=== PATIENT | male | born 1965 | race Hispanic/Latino ===

== ENCOUNTER 2016-07-06 15:55 | Inpatient (IN) | payer MEDICAID, OTHER ==
[2016-07-06 16:14] VITALS: BMI 37.5
[2016-07-06] MEDS ORDERED: Morphine 4 mg/ml ISec IVP STA (16:23)
--- NOTE | 2016-07-06 16:29 | ED PDOC ---
Arrival/HPI - General Chief Complaint: Back Pain Time Seen by Provider: 07/06/16 15:56 Historian: Patient - History of Present Illness Narrative History of Present Illness (Text): 07/06/16 16:00 Atul Magana, a 51 year old male, who denies any significant past medical history , presents to the emergency department complaining of chest pain and lower back pain that has developed over the past week. 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 Patient says he felt numbness and pain radiating from the back down to the right lower extremity that began earlier yesterday. He has been constipated for 2 days. Chest pain is worse with movement. Patient mentions he was seen in [facility] yesterday and had imaging done. Patient denies any urinary incontinence, nausea, vomiting, diarrhea, fever and any other complaints at this time. Patient says he has been taking medication but it has not brought him any relief. Time/Duration: 1 week Symptom Onset: Gradual Symptom Course: Unchanged Quality: Other Activities at Onset: Rest Modifying Factors (Text): chest pain worse with movement; no relief with medication Context: Work Associated Symptoms (Text): chest pain and lower back pain Past Medical History - Provider Review Nursing Documentation Reviewed: Yes - Psychiatric Hx Substance Use: No Family/Social History - Physician Review Nursing Documentation Reviewed: Yes Family/Social History: No Known Family HX Smoking Status: Heavy Smoker > 10 Cigarettes Daily Hx Alcohol Use: Yes ("one beer daily") Frequency of alcohol use: Daily Hx Substance Use: No Allergies/Home Meds Allergies/Adverse Reactions: Allergies No Known Allergies Allergy (Verified 07/06/16 16:07) Home Medications: Home Meds Medication Instructions Recorded Confirmed No Known Home Med 07/06/16 07/06/16 Review of Systems - Physician Review All systems were reviewed & negative as marked: Yes - Review of Systems Constitutional: absent: Fevers Eyes: absent: Vision Changes Respiratory: absent: SOB Cardiovascular: Chest Pain Gastrointestinal: Constipation. absent: Diarrhea, Nausea, Vomiting Genitourinary Male: absent: Urinary Output Changes Musculoskeletal: Back Pain Neurological: absent: Headache, Dizziness, Focal Weakness, Facial Droop Endocrine: absent: Polyuria Physical Exam Vital Signs Reviewed: Yes Vital Signs Temp Pulse Resp BP Pulse Ox 07/06/16 16:39 79 169/100 H 07/06/16 16:10 97.7 F 74 16 182/100 H 99 Temperature: Afebrile Blood Pressure: Hypertensive Pulse: Regular Respiratory Rate: Normal Appearance: Positive for: Well-Appearing, Non-Toxic, Comfortable, Other (obese) Pain Distress: Moderate (back pain) Mental Status: Positive for: Alert and Oriented X 3 - Systems Exam Head: Present: Atraumatic, Normocephalic Pupils: Present: PERRL Extroacular Muscles: Present: EOMI Conjunctiva: Present: Normal Mouth: Present: Moist Mucous Membranes Neck: Present: Normal Range of Motion Respiratory/Chest: Present: Clear to Auscultation, Good Air Exchange. No: Respiratory Distress, Accessory Muscle Use Cardiovascular: Present: Regular Rate and Rhythm, Normal S1, S2. No: Murmurs Abdomen: Present: Normal Bowel Sounds, Other (obese). No: Tenderness, Distention, Peritoneal Signs Back: Present: Midline Tenderness (lumbar), Pain with Leg Raise (on the right) Upper Extremity: Present: Normal Inspection. No: Cyanosis, Edema Lower Extremity: Present: Normal Inspection. No: Edema Neurological: Present: GCS=15, CN II-XII Intact, Speech Normal Skin: Present: Warm, Dry, Normal Color. No: Rashes Psychiatric: Present: Alert, Oriented x 3, Normal Insight, Normal Concentration Medical Decision Making ED Course and Treatment: 07/06/16 16:00 Impression: A 51 year old male complaining of chest pain and lower back pain. Differential Diagnosis included but are not limited to: ACS vs. dissection vs. sciatica Plan: -- EKG -- Lumbar Spine CT -- Chest X-ray -- Labs -- Urinalysis -- Aspirin, Lopressor, Morphine, Toradol and Valium -- Reassess and disposition Progress Notes: Case discussed with Emergency department physician at [facility] , who states the patient had a Angio CT which was negative for dissection and a negative chest, after which the patient eloped. EKG: Ordered, reviewed, and independently interpreted the EKG. Rate : 69 BPM Rhythm : NSR Interpretation : MN of 107, normal axis, no ST/T changes Comparison : No previous EKG for comparison. 07/06/16 18:15 CT Lumbar Spine Without Intravenous Contrast: Dictated and Authenticated by: Kevin Mazariegos MD COMPARISON: No relevant prior studies available. FINDINGS: Vertebrae: Grade 1 retrolisthesis of L3 on L4, L4-L5, and L5-S1. No acute fracture. Discs/spinal canal/neural foramina: At L3-L4, disc bulge and facet arthropathy results in moderate canal and mild to moderate left and no right foraminal stenosis. At L4-L5, disc bulge and facet arthrosis result in mild canal and moderate bilateral foraminal stenosis. At L5-S1, disc bulge results in mild canal and moderate severe right and mild left foraminal stenosis. Soft tissues: Unremarkable. IMPRESSION: 1. At L3-L4, disc bulge and facet arthropathy results in moderate canal and mild to moderate left and no right foraminal stenosis. 2. At L4-L5, disc bulge and facet arthrosis result in mild canal and moderate bilateral foraminal stenosis. 3. At L5-S1, disc bulge results in mild canal and moderate severe right and mild left foraminal stenosis. 07/06/16 18:59 Chest X-ray: As read by me, no active disease. Patient unable to walk due to intractable back pain and symptoms due to radiculopathy - he will need to be placed in the hospital for further eval by neuro and treatment. No bowel/bladder incontinence or symptoms to suggest cord compression. Case discussed with Dr. Jones, who is aware and agrees with the plan to place the patient in telemetry observation under hospitalist services for intractable back pain and chest pain. I have discussed the results and plan with the patient, who expresses understanding. Patient given the opportunity to ask question, all questions were answered and there is agreement with the plan to be admitted to the hospital. - Lab Interpretations Lab Results: 07/06/16 16:30 07/06/16 16:30 Lab Results 07/06/16 16:30: WBC 13.4 H, RBC 4.73, Hgb 14.9, Hct 42.7, MCV 90.3, MCH 31.5, MCHC 34.9, RDW 13.3, Plt Count 223, MPV 12.0 H, Gran % 80.0 H, Lymph % (Auto) 10.6 L, Slope % (Auto) 8.9 H, Eos % (Auto) 0.4 L, Baso % (Auto) 0.1, Gran # 10.73 H, Lymph # 1.4, Slope # 1.2 H, Eos # 0.1, Baso # 0.02, PT 11.2, INR 1.04, APTT 32.1 H, Sodium 137, Potassium 4.2, Chloride 101, Carbon Dioxide 25, Anion Gap 15, BUN 18, Creatinine 0.8, Est GFR ( Amer) > 60, Est GFR (Non-Af Amer) > 60, Random Glucose 106, Calcium 9.5, Magnesium 2.2, Total Bilirubin 0.7 , AST 28, ALT 32, Alkaline Phosphatase 73, Lactate Dehydrogenase 541, Total Creatine Kinase 313 H, CK-MB (CK-2) 5.5 H, CK-MB (CK-2) % 1.8 L, Troponin I < 0.01, Total Protein 8.2, Albumin 4.0, Globulin 4.2, Albumin/Globulin Ratio 1.0 L , Lipase 36 I have reviewed the lab results: Yes - RAD Interpretation Radiology Orders: 07/06/16 16:21 CHEST TWO VIEWS (PA/LAT) [RAD] Stat 07/06/16 16:23 LUMBAR SPINE W/O CONTRAST [CT] Stat - Medication Orders Current Medication Orders: Discontinued Medications Aspirin (Aspirin Chewable) 162 mg PO STAT STA Stop: 07/06/16 16:23 Last Admin: 07/06/16 16:39 Dose: 162 MG Diazepam (Valium) 5 mg PO ONCE ONE Stop: 07/06/16 16:24 Last Admin: 07/06/16 16:39 Dose: 5 MG Behavioural Document 07/06/16 16:39 SE (Rec: 07/06/16 16:39 [id number]) Maintenance Maintenance Dose No Nonmedicinal Nonmedicinal Interventions See nurse's notes Comment muslce relaxant Behavior Behavior for Medication: Anxiety Behavior Comment muscle relaxant Ketorolac Tromethamine (Toradol) 30 mg IVP STAT STA Stop: 07/06/16 16:23 Last Admin: 07/06/16 16:40 Dose: 30 MG IVP Administration Document 07/06/16 16:40 SE (Rec: 07/06/16 16:40 [id number]) Charges for Administration # of IVP Administrations 1 Metoprolol Tartrate (Lopressor) 25 mg PO STAT STA Stop: 07/06/16 16:24 Last Admin: 07/06/16 16:39 Dose: 25 MG MAR Pulse and Blood Pressure Document 07/06/16 16:39 SE (Rec: 07/06/16 16:40 SE [id number]) Pulse Pulse Rate (60-90) 79 Blood Pressure Blood Pressure (100/60-150/90) 169/100 Morphine Sulfate (Morphine) 4 mg IVP STAT STA Stop: 07/06/16 16:24 Last Admin: 07/06/16 16:40 Dose: 4 MG MAR Pain Assessment Document 07/06/16 16:40 SE (Rec: 07/06/16 16:40 SE [id number]) Pain Reassessment Is this a pain reassessment? No Sleep Is patient sleeping during reassessment? No Presence of Pain Presence of Pain Yes IVP Administration Document 07/06/16 16:40 SE (Rec: 07/06/16 16:40 SE [id number]) Charges for Administration # of IVP Administrations 1 - Scribe Statement The provider has reviewed the documentation as recorded by the Yesica De Guzman training under Alvaro Tee All medical record entries made by the Trishaibaislinn were at my direction and personally dictated by me. I have reviewed the chart and agree that the record accurately reflects my personal performance of the history, physical exam, medical decision making, and the department course for this patient. I have also personally directed, reviewed, and agree with the discharge instructions and disposition. Disposition/Present on Arrival - Present on Arrival Any Indicators Present on Arrival: No History of DVT/PE: No History of Uncontrolled Diabetes: No Urinary Catheter: No History of Decub. Ulcer: No History Surgical Site Infection Following: None - Disposition Have Diagnosis and Disposition been Completed?: Yes Diagnosis: Chest pain, Lumbar radiculopathy Disposition: HOSPITALIZED Disposition Time: 18:45 Patient Plan: Observation Condition: FAIR
[2016-07-06 17:19] LABS: ALT/SGPT 32 U/L (7-56); AST/SGOT 28 U/L (15-59); BLOOD UREA NITROGEN 18 mg/dL (7-21); CALCIUM 9.5 mg/dL (8.4-10.5); GFR AFRICAN-AMERICAN > 60; GFR NON-AFRICAN AMERICAN > 60; LIPASE 36 U/L (23-300); MAGNESIUM 2.2 mg/dL (1.7-2.2)
[2016-07-06 17:30] LABS: TROPONIN I < 0.01 ng/mL
[2016-07-06 17:31] LABS: BASO # 0.02 K/mm3 (0.0-2.0); BASO % 0.1 % (0.0-3.0); EOS # 0.1 (0.0-0.7); EOS % 0.4 % (1.5-5.0); GRAN # 10.73 (1.4-6.5); HEMOGLOBIN 14.9 gm/dL (14.0-18.0); LYMPH # 1.4 (1.2-3.4); LYMPH % 10.6 % (22.0-35.0); MEAN CELL VOLUME 90.3 fL (80.0-105.0); MEAN CORPUSCULAR HEMOGLOBIN 31.5 pg (25.0-35.0); MEAN CORPUSCULAR HGB CONC 34.9 g/dl (31.0-37.0); MONO # 1.2 (0.1-0.6); MONO % 8.9 % (1.0-6.0); PLATELET COUNT 223 10^3/uL (120.0-450.0); RBC 4.73 10^6/uL (3.5-6.1); RED CELL DISTRIBUTION WIDTH 13.3 % (11.5-14.5); WHITE BLOOD COUNT 13.4 10^3/ul (4.5-11.0)
[2016-07-06 17:35] LABS: CK MB% 1.8 % (2.5-3.0); CK-MB 5.5 ng/mL (0.0-3.6)
[2016-07-06 17:38] LABS: INR 1.04 (0.93-1.08); PARTIAL THROMBOPLASTIN TIME 32.1 Seconds (23.7-30.8); PROTHROMBIN TIME 11.2 Seconds (9.9-11.8)
[2016-07-06 20:03] LABS: MAGNESIUM 2.2 mg/dL (1.7-2.2)
--- NOTE | 2016-07-06 20:26 | CP.PCM.HP ---
<Rolando Ferro - Last Filed: 07/06/16 21:49> History of Present Illness - History of Present Illness History of Present Illness: cc: Chest pain and low back pain HPI: Patient is a 51yo male who denies prior past medicla history that presented to [facility] c/o chest pain and low back pain that started 2 days prior. 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 He reported that he also felt some left- sided chest pain and went to [facility] for evaluation. He stated that he was only given an ibuprofen which provided minimal relief and he left the emergency room prior to a complete evaluation because he was upset with how they were evaluating him. Today, he reports worsening of his low back pain and RLE weakness. He stated that he was unable to ambulate and called EMS to be brought to the hospital. He stated that the chest pain was non-radiating and worse with movement. He denied bowel/bladder incontinence, saddle anesthesia , headache, fever, chills, dysuria, frequency, urgency. In the ED, patient's vitals were as follows: temperature 97.7F, heart rate 74bpm, blood pressure 182/ 100, RR 16, O2sat 99% on room air. His labs were notable for a WBC count of 13.4 with left shift, total CK of 313, troponin negative x1. An EKG revealed normal sinus rhythm with no acute ST-T wave changes. The ED physician, Dr. Tyson contacted [facility] and discussed this patient's case with an ED physician there who stated the patient had a CT angio which was negative for dissection and a negative chest, after which the patient eloped. The patient was subsequently admitted for further evaluation of his chest pain and low back pain. 12 point ROS as per HPI above otherwise negative PMHx: Denies PSHx: Denies Allergies: NKDA Family Hx: Dad: denies history of illness; Mother: DM2; Brother: DM2 Social Hx: smokes 1ppd for past 15yrs, 2-3 beers daily; denies illicit drugs Present on Admission - Present on Admission Any Indicators Present on Admission: No Past Patient History - Past Social History Smoking Status: Heavy Smoker > 10 Cigarettes Daily - PSYCHIATRIC Hx Substance Use: No - SURGICAL HISTORY Hx Surgeries: No Meds Allergies/Adverse Reactions: Allergies Allergy/AdvReac Type Severity Reaction Status Date / Time No Known Allergies Allergy Verified 07/06/16 16:07 Physical Exam - Constitutional Appears: Well, Non-toxic, No Acute Distress - Head Exam Head Exam: ATRAUMATIC, NORMAL INSPECTION, NORMOCEPHALIC - Eye Exam Eye Exam: EOMI, PERRL. absent: Conjunctival injection, Scleral icterus - ENT Exam ENT Exam: Mucous Membranes Moist - Neck Exam Neck exam: Positive for: Normal Inspection. Negative for: Lymphadenopathy, Tenderness, Thyromegaly - Respiratory Exam Respiratory Exam: Clear to Auscultation Bilateral. absent: Rales, Rhonchi, Wheezes - Cardiovascular Exam Cardiovascular Exam: RRR, +S1, +S2. absent: Tachycardia, Diastolic murmur, Gallop, JVD, Rubs, Systolic Murmur - GI/Abdominal Exam GI & Abdominal Exam: Normal Bowel Sounds, Soft. absent: Distended, Firm, Guarding, Rebound, Rigid, Tenderness - Extremities Exam Extremities exam: Positive for: normal inspection, pedal pulses present. Negative for: calf tenderness, pedal edema, tenderness Additional comments: sensory intact in bilateral upper and lower extremities 2/4 femoral, posterior tibialis and dorsalis pedis pulses in bilateral lower extremities motor strength 3/5 in LLE and 2/5 in RLE 5/5 motor strength in bilateral upper extremities negative babinski bilaterally negative justen's sign no calf tenderness no erythema visible on bilateral lower extremities - Back Exam Back exam: NORMAL INSPECTION - Neurological Exam Neurological exam: Alert, CN II-XII Intact, Oriented x3 - Psychiatric Exam Psychiatric exam: Anxious - Skin Skin Exam: Dry, Intact, Normal Color, Warm Results - Vital Signs Recent Vital Signs: Last Vital Signs Temp 97.8 F 07/06/16 20:11 Pulse 67 07/06/16 20:11 Resp 18 07/06/16 20:11 BP 157/95 H 07/06/16 20:11 Pulse Ox 96 07/06/16 20:11 - Labs Result Diagrams: 07/06/16 16:30 07/06/16 16:30 Labs: Laboratory Results - last 24 hr 07/06/16 16:30 WBC 13.4 H RBC 4.73 Hgb 14.9 Hct 42.7 MCV 90.3 MCH 31.5 MCHC 34.9 RDW 13.3 Plt Count 223 MPV 12.0 H Gran % 80.0 H Lymph % (Auto) 10.6 L Glades % (Auto) 8.9 H Eos % (Auto) 0.4 L Baso % (Auto) 0.1 Gran # 10.73 H Lymph # 1.4 Glades # 1.2 H Eos # 0.1 Baso # 0.02 PT 11.2 INR 1.04 APTT 32.1 H Sodium 137 Potassium 4.2 Chloride 101 Carbon Dioxide 25 Anion Gap 15 BUN 18 Creatinine 0.8 Est GFR ( Amer) > 60 Est GFR (Non-Af Amer) > 60 Random Glucose 106 Calcium 9.5 Magnesium 2.2 Total Bilirubin 0.7 AST 28 ALT 32 Alkaline Phosphatase 73 Lactate Dehydrogenase 541 Total Creatine Kinase 313 H CK-MB (CK-2) 5.5 H CK-MB (CK-2) % 1.8 L Troponin I < 0.01 Total Protein 8.2 Albumin 4.0 Globulin 4.2 Albumin/Globulin Ratio 1.0 L Lipase 36 Assessment & Plan - Assessment and Plan (Free Text) Assessment: 51yo male with no known past medical history presents c/o chest pain and low back pain that radiates to the RLE associated with weakness and numbness Plan: 1. RLE DVT -Bilateral Venous duplex revealed RLE DVT -ED physician reports CT angio from [facility] was negative for dissection/chest abnormalities -Patient started on lovenox 140mg SC BID and warfarin 5mg PO HS for therapeutic treatment of DVT -Hypercoagulability workup pending - antithrombin III, Protein C, Protein S, Factor V leidin, lupus anticoagulant -Hematology consulted - Dr. Warren 2. RLE weakness/low back pain -Femoral, posterior tibialis and dorsalis pedis pulses are 2/4 bilaterally -CT Lumbar spine without IV contrast revealed as follows: 1. At L3-L4, disc bulge and facet arthropathy results in moderate canal and mild to moderate left and no right foraminal stenosis. 2. At L4-L5, disc bulge and facet arthrosis result in mild canal and moderate bilateral foraminal stenosis. 3. At L5-S1, disc bulge results in mild canal and moderate severe right and mild left foraminal stenosis. -Neurology consulted - Dr. Koch 3. Chest pain r/o ACS -Troponin negative x1, will trend -CXR revealed no active disease -EKG revealed normal sinus rhythm with no acute ST-T wave changes -Lipid panel, TSH, A1C pending -Urine drug screen pending -Cardiology consulted - Dr. Sumner 4. GI/DVT prophylaxis -Protonix/Lovenox Patient seen and case discussed with attending, Dr. Jones - Date & Time Date: 07/06/16 Time: 20:40 <Naun Jones - Last Filed: 07/06/16 22:52> Results - Vital Signs Recent Vital Signs: Last Vital Signs Temp 97.8 F 07/06/16 21:05 Pulse 67 07/06/16 21:05 Resp 20 07/06/16 21:05 BP 157/95 H 07/06/16 21:05 Pulse Ox 96 07/06/16 20:11 - Labs Result Diagrams: 07/06/16 16:30 07/06/16 16:30 Labs: Laboratory Results - last 24 hr 07/06/16 19:40 Phosphorus 3.0 Magnesium 2.2 Triglycerides 104 Cholesterol 174 LDL Cholesterol Direct 101 HDL Cholesterol 37 TSH 3rd Generation 0.79 Attending/Attestation - Attestation I have personally seen and examined this patient.: Yes I have fully participated in the care of the patient.: Yes I have reviewed all pertinent clinical information: Yes Notes (Text): 07/06/16 22:51 Patient was seen when he was in room # 266-01. Agree with history,physical examination , assessment and plan.
[2016-07-06] MEDS ORDERED: Enoxaparin 150 mg Syringe SC STA (20:45)
[2016-07-06] MEDS ORDERED: cefTRIAXone 1 gm 100 ML IVPB STA (22:56)
[2016-07-06] MEDS ORDERED: Morphine 2 mg/ml ISec IVP PRN (22:58)
[2016-07-07] MEDS ORDERED: Enoxaparin 150 mg Syringe SC SCH ×2 (05:00→10:00)
[2016-07-07 07:13] LABS: BASO # 0.01 K/mm3 (0.0-2.0); BASO % 0.1 % (0.0-3.0); EOS % 0.2 % (1.5-5.0); GRAN # 10.54 (1.4-6.5); HEMOGLOBIN 14.2 gm/dL (14.0-18.0); INR 0.98 (0.93-1.08); LYMPH % 8.2 % (22.0-35.0); MEAN CELL VOLUME 90.3 fL (80.0-105.0); MEAN CORPUSCULAR HEMOGLOBIN 31.4 pg (25.0-35.0); MEAN CORPUSCULAR HGB CONC 34.8 g/dl (31.0-37.0); MEAN PLATELET VOLUME 11.8 fl (7.0-11.0); MONO # 0.8 (0.1-0.6); MONO % 6.5 % (1.0-6.0); PARTIAL THROMBOPLASTIN TIME 33.4 Seconds (23.7-30.8); PLATELET COUNT 249 10^3/uL (120.0-450.0); PROTHROMBIN TIME 10.6 Seconds (9.9-11.8); RBC 4.52 10^6/uL (3.5-6.1); RED CELL DISTRIBUTION WIDTH 13.5 % (11.5-14.5); WHITE BLOOD COUNT 12.4 10^3/ul (4.5-11.0)
[2016-07-07 07:26] LABS: ALB/GLOB RATIO 0.9 (1.1-1.8); ALBUMIN 4.1 g/dL (3.0-4.8); ALT/SGPT 34 U/L (7-56); AST/SGOT 26 U/L (15-59); BLOOD UREA NITROGEN 24 mg/dL (7-21); CALCIUM 9.6 mg/dL (8.4-10.5); GFR AFRICAN-AMERICAN > 60; GFR NON-AFRICAN AMERICAN > 60
[2016-07-07 07:35] LABS: TROPONIN I 0.01 ng/mL
--- NOTE | 2016-07-07 07:55 | RAD ---
HISTORY: Chest pain COMPARISON: No prior. TECHNIQUE: Chest PA and lateral FINDINGS: LUNGS: The lungs are well inflated and clear. PLEURA: No significant pleural effusion identified. No pneumothorax apparent. CARDIOVASCULAR: Normal. OSSEOUS STRUCTURES: No significant abnormalities. VISUALIZED UPPER ABDOMEN: Normal. OTHER FINDINGS: None. IMPRESSION: No active pulmonary disease.
--- NOTE | 2016-07-07 09:47 | US ---
HISTORY: Leg pain and swelling. Evaluate for DVT PHYSICIAN(S): Pradeep Monsalve MD. TECHNIQUE: Duplex sonography and color-flow Doppler with graded compression were used to evaluate the deep venous systems of both lower extremities. FINDINGS: There is hypoechoic thrombus in the right common femoral vein and proximal right femoral vein. The mid to distal right femoral vein and right popliteal vein are patent and compressible. There is no sonographic evidence of deep venous thrombosis the visualized segments of left lower extremity IMPRESSION: Acute, hypoechoic thrombus in the right common femoral vein and proximal right femoral vein.
[2016-07-07] MEDS ORDERED: Enoxaparin 30 mg Syringe SC SCH (10:00)
[2016-07-07] MEDS ORDERED: Barium Sulfate Susp 2.1% w/v, 2.0% w/w 450 mL Bottle PO ONE (10:58)
--- NOTE | 2016-07-07 11:26 | MRI ---
PROCEDURE: MR THORACIC SPINE WITHOUT CONTRAST HISTORY: suspected cauda equina COMPARISON: None available. TECHNIQUE: Multiecho multiplanar sequences were performed through the thoracic spine without the use of intravenous contrast. FINDINGS: ALIGNMENT: Normal thoracic spinal alignment. Normal thoracic kyphosis. VERTEBRA: Vertebral body height are preserved. MARROW: There is abnormal signal intensity within the T3 and T4 vertebral bodies suspicious for either metastatic disease or infection. There is no evidence of disc space infection. PARASPINAL SOFT TISSUES: There is a fluid collection in the ventral epidural space extending from T1 through T5. This measures 5 mm anterior to posterior by 12 mm with by 79 mm in length. This compresses the cord and obliterates the subarachnoid space. The study was reviewed with Dr. Mora at 11:15 a.m. CORD: Compression of the spinal cord from T1 through T5. There is also some cord edema extending to the T8 level. DISCS: No disc herniation, spinal canal stenosis, or neuroforaminal narrowing. OTHER FINDINGS: None. IMPRESSION: Fluid collection in the ventral epidural space from T1 through T5 with associated cord compression and obliteration of the subarachnoid space. There is abnormal signal intensity in the T3 and T4 vertebral bodies which may represent osteomyelitis versus metastatic disease.
--- NOTE | 2016-07-07 11:35 | CON ---
DATE: 07/07/2016 REASON FOR CONSULTATION: Right lower extremity DVT. Rule out hypercoagulable state. HISTORY OF PRESENT ILLNESS: The patient is a 51-year-old male with no significant past medical histo ry who presented to the Emergency Room with complaints of chest and lower back pain that started 2 da ys prior to admission. He also had an evaluation for the above at [facility] and no pathology was found. He did sign out against medical advice though at that time. A chest CT done at that time did not reveal a PE or aortic dissection. He is currently also being worked up for this l ower back pain. He also states that he has lower extremity weakness and incontinence. Denies any pr ior history of malignancy has not had any workup. No GI workup has been done in the past. Denies an y melena, any hematochezia. No weight changes. No history of prostate cancer. No history of prosta te problems in the past. No recent weight changes. No fevers. No night sweats. PAST MEDICAL HISTORY: As above. PAST SURGICAL HISTORY: None known. MEDICATIONS: Does not take any medications at home. ALLERGIES: No known drug allergies. FAMILY HISTORY: Significant for mother and brother having diabetes. SOCIAL HISTORY: Positive for smoking 1 pack per day for over 20 years, 2-3 beers daily. Denies any illicit drug use. REVIEW OF SYSTEMS: As per the HPI. PHYSICAL EXAMINATION: VITAL SIGNS: Reveal a temperature of 97.2, pulse of 75, respiratory rate of 18, and blood pressure o f 145/89. GENERAL: The patient is a middle-aged male lying in bed, in no acute distress. HEAD AND NECK: Normocephalic, atraumatic. EYES: Pupils equal, round, reactive to light and accommodation. Extraocular muscles are intact. Th ere is pallor. No icterus is noted. NECK: Supple with no adenopathy, no JVD, no thyromegaly. LUNGS: Clear to auscultation bilaterally with no rales or rhonchi. CARDIOVASCULAR: S1, S2 is heard. ABDOMEN: Positive bowel sounds. Soft, nontender, nondistended. No organomegaly is palpated. EXTREMITIES: There is no edema, clubbing, or cyanosis. LABORATORY DATA: Reveal a white count of 12.4, hemoglobin 14.2, hematocrit 40.8, MCV of 90.3 and a p latelet count of 249. Electrolytes are within normal limits except for BUN and creatinine of 24 and 1.0. His LFTs are within normal limits as is the alk phos. Total protein is mildly elevated at 8.7 with albumin/globulin ratio of 0.9. ASSESSMENT AND PLAN: Middle-aged male with no significant past medical history with an extensive mario p venous thrombosis of the right lower extremity. Must rule out underlying malignancy. The patient will need a complete gastrointestinal workup. Check PSA, CEA. CT scans of the chest, abdomen and pe lvis should also be ordered. Agree with hypercoagulable workup. Continue anticoagulation at full do ses. He will need anticoagulation for at least 6 months, even if no underlying pathology is found. Will discuss regarding further workup. Thank you for the consult. We will follow. Marilynn Wong MD cc: [id number] TT: 07/07/2016 11:34:52 Confirmation # [id number] Dictation # [id number] jose
[2016-07-07] MEDS ORDERED: Propofol 10 mg/ml Inj (20 ML) ONE ×2 (11:45→12:03)
[2016-07-07] MEDS ORDERED: Midazolam 2 MG/2 ML VIAL ONE (11:45)
[2016-07-07] MEDS ORDERED: Rocuronium 10 mg/ml (5 ml) ONE ×2 (11:46→13:14)
[2016-07-07] MEDS ORDERED: Succinylcholine 200 mg/10 ml Inj IV ONE (11:46)
[2016-07-07] MEDS ORDERED: White Petrolatum Ophth Oint (Puralube) ONE (11:52)
[2016-07-07] MEDS ORDERED: Piperacillin/Tazobact 3.375 gm 100 ML IVPB SCH (12:00)
[2016-07-07] MEDS ORDERED: Phenylephrine 10 mg/ml Inj ONE (12:04)
[2016-07-07] MEDS ORDERED: Bupivacaine 0.5% Inj(30mL) ONE (12:05)
[2016-07-07] MEDS ORDERED: Absorbable Gelatin Sponge Size 100 ONE ×2 (12:05→14:43)
[2016-07-07] MEDS ORDERED: Lidocaine 1%/Epinephrine 1:100000 30 ml vial ONE (12:05)
[2016-07-07] MEDS ORDERED: Thrombin Topical 20,000 Intl Units Spray Kit TOP ONE (12:06)
--- NOTE | 2016-07-07 12:11 | MRI ---
PROCEDURE: MR LUMBAR SPINE WITHOUT CONTRAST HISTORY: suspected cauda equina COMPARISON: None available. TECHNIQUE: Multiecho multiplanar sequences were performed through the lumbar spine without the use of intravenous contrast. FINDINGS: Normal lumbar lordosis. Vertebral body heights are preserved. Marrow signal unremarkable. Conus medullaris unremarkable at the level of L1 Paraspinal soft tissues are unremarkable. T12-L1: No disc herniation, spinal canal stenosis or neural foraminal narrowing. L1-2: No disc herniation, spinal canal stenosis or neural foraminal narrowing. L2-3: No disc herniation, spinal canal stenosis or neural foraminal narrowing. L3-4: No disc herniation, spinal canal stenosis or neural foraminal narrowing. L4-5: No disc herniation, spinal canal stenosis or neural foraminal narrowing. L5-S1: No disc herniation, spinal canal stenosis or neural foraminal narrowing. Mild disc bulge OTHER FINDINGS: Please see MRI of thoracic spine IMPRESSION: No evidence of compression of the cauda equina.
--- NOTE | 2016-07-07 12:14 | CT ---
PROCEDURE: CT Lumbar Spine without contrast HISTORY: low back pain radiating to the R leg COMPARISON: None. TECHNIQUE: Axial computed tomography images were obtained of the lumbar spine without the use of intravenous contrast. Coronal and sagittal reformatted images were created and reviewed. Radiation dose: Total exam DLP = mGy-cm. This CT exam was performed using one or more of the following dose reduction techniques: Automated exposure control, adjustment of the mA and/or kV according to patient size, and/or use of iterative reconstruction technique. FINDINGS: VERTEBRAE: Unremarkable. No fracture. Normal alignment. DISCS/SPINAL CANAL/NEURAL FORAMINA: L1-2: Unremarkable. L2-3: Unremarkable. L3-4: Mild disc bulge L4-5: Mild disc bulge L5-S1: Mild disc bulge PARASPINAL SOFT TISSUES: Unremarkable. OTHER FINDINGS: The report concurs with the preliminary [facility] report IMPRESSION: Mild disc degeneration lower lumbar spine. No compressive lesions
--- NOTE | 2016-07-07 12:45 | CP.PCM.CON ---
<Uzma Abbott - Last Filed: 07/07/16 18:46> History of Present Illness - History of Present Illness History of Present Illness: PGY-[address] Audelia Marc ICU consult: Abscess in epidural space 51 year old male with self claimed of no PMH c/o chest pain and low back pain that started 2 days prior to admission on 07/06/16. He was started with RLE weakness 1 week ago. 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 He also felt L chest pain, worse with movement, and went to [facility] ED for evaluation, given ibuprofen, provided minimal relief, eloped. On 07/06, pt has worsened low back pain, RLE weakness, is able to ambulate with difficulty. The back pain was non-radiating and worse with movement. Denied bowel/bladder incontinence, saddle anesthesia on arrival. He was brought to [facility] via EMS. Upon ED arrival, T 97.7, HR 74, 182/100, RR 16, O2sat 99 RA. WBC 13.4, total CK 313, troponin negative x1. Pt is able to ambulate with difficulty. - EKG = NSR no acute ST-T wave changes - CT of lumbar = L3-S1, disc bulge, facet arthropathy resulting in canal stenosis at all levels and foraminal stenosis at some levels. - LE doppler showed = R LE DVT, acute, R common femoral vein and proximal R femoral vein - CT angio at [facility] = no PE, no aortic dissection. He was admitted for chest pain, low back pain, and R LE DVT. trops are negative x 3. He is on Zosyn q6, Vanco q12, and Lovenox therapeutic dose while bridging coumadin. Start this morning, Mon, 07/07, pt could not feel his lower extremities, unable to move both legs, and have new onset urinary incontinence. - Lumbar MRI = No cauda equina - Thoracic MRI = T3, T4 vertebral bodies suspicious for metastatic disease vs osteomyelitis. Fluid collection in ventral epidural space T1 to T5 with cord compression and obliteration of subacrachnoid space This afternoon, he underwent Emergent laminectomy, T2-T4, with Dr Mora. Pus was found in spinal canal. Purulent fluid was sent for gram stain and culture. ROS (+) urinary incontience, (+) decrease sensation and motor function b/l LE. Denies recent trauma or travels. Denies skin infections. Denies REINA, Fever/chills, CP, SOB, abd pain, N/V/D/C. (+) weak streams when urinate. Denies dysuria, hematuria. PMH Denies PSH Denies FH Denies SH 1 Beer daily, Heavy smoker denies IV drug use. But sister states that he "had used drugs in the past" but does not know when UDS (+) cocaine Allergy NKDA Med No home med PMD No Review of Systems - Constitutional Constitutional: As Per HPI Past Patient History - Past Social History Smoking Status: Heavy Smoker > 10 Cigarettes Daily Alcohol: < 2 Drinks/Day Drugs: Denies - CARDIAC Hx Cardiac Disorders: No - PULMONARY Hx Respiratory Disorders: No - MUSCULOSKELETAL/RHEUMATOLOGICAL Hx Falls: No - PSYCHIATRIC Hx Substance Use: No - SURGICAL HISTORY Hx Surgeries: No Meds Allergies/Adverse Reactions: Allergies Allergy/AdvReac Type Severity Reaction Status Date / Time No Known Allergies Allergy Verified 07/06/16 16:07 - Medications Medications: Current Medications Enoxaparin Sodium (Lovenox) 140 mg SC Q12H DONAL PRN Reason: Protocol Piperacillin Sod/Tazobactam Sod (Zosyn 3.375 In Ns 100ml) 100 mls @ 200 mls/hr IVPB Q6 DONAL PRN Reason: Protocol Stop: 07/07/16 18:29 Vancomycin HCl (Vancomycin 1gm) 250 mls @ 167 mls/hr IVPB Q12H DONAL PRN Reason: Protocol Morphine Sulfate (Morphine) 1 mg IVP Q6H PRN PRN Reason: Pain, severe (8-10) Last Admin: 07/06/16 23:24 Dose: 1 mg Pantoprazole Sodium (Protonix Inj) 40 mg IVP DAILY DONAL Warfarin Sodium (Coumadin) 5 mg PO HS DONAL PRN Reason: Protocol Last Admin: 07/06/16 23:24 Dose: 5 mg Physical Exam - Constitutional Appears: No Acute Distress - Head Exam Head Exam: ATRAUMATIC, NORMOCEPHALIC - Eye Exam Eye Exam: EOMI, Normal appearance, PERRL - ENT Exam ENT Exam: Mucous Membranes Moist - Neck Exam Neck exam: Negative for: Meningismus - Respiratory Exam Respiratory Exam: Clear to Auscultation Bilateral, NORMAL BREATHING PATTERN. absent: Rales, Rhonchi, Wheezes - Cardiovascular Exam Cardiovascular Exam: REGULAR RHYTHM, +S1, +S2. absent: Systolic Murmur - GI/Abdominal Exam GI & Abdominal Exam: Normal Bowel Sounds, Soft. absent: Distended, Rigid - Extremities Exam Extremities exam: Positive for: normal capillary refill, pedal pulses present. Negative for: pedal edema - Back Exam Additional comments: dressing T2-T4 d/c/i with ROSELYN drain with sanguinous fluid - Neurological Exam Neurological exam: Alert, Motor Sensory Deficit, Oriented x3 Additional comments: pain sensation/touch and proprioception - intact T10 and above; lack of total sensation - T10 and below to S2-3 Motor - hip flexors/extensors, leg flexors/extensors, foot dorsiflex, 0/5 - Psychiatric Exam Psychiatric exam: Normal Affect, Normal Mood - Skin Skin Exam: Dry, Warm Additional comments: old bruise on gluteal area Results - Vital Signs Recent Vital Signs: Last Vital Signs Temp 97.2 F L 07/07/16 00:01 Pulse 75 07/07/16 10:00 Resp 18 07/07/16 00:01 BP 145/89 07/07/16 00:01 Pulse Ox 97 07/07/16 00:01 - Labs Result Diagrams: 07/07/16 06:45 07/07/16 06:45 Labs: Laboratory Results - last 24 hr 07/06/16 07/06/16 07/07/16 19:40 23:15 06:45 WBC 12.4 H RBC 4.52 Hgb 14.2 Hct 40.8 L MCV 90.3 MCH 31.4 MCHC 34.8 RDW 13.5 Plt Count 249 MPV 11.8 H Gran % 85.0 H Lymph % (Auto) 8.2 L Dickens % (Auto) 6.5 H Eos % (Auto) 0.2 L Baso % (Auto) 0.1 Gran # 10.54 H Lymph # 1.0 L Dickens # 0.8 H Eos # 0.0 Baso # 0.01 PT 10.6 INR 0.98 APTT 33.4 H Sodium 136 Potassium 4.5 Chloride 98 Carbon Dioxide 26 Anion Gap 17 BUN 24 H Creatinine 1.0 Est GFR ( Amer) > 60 Est GFR (Non-Af Amer) > 60 Random Glucose 92 Hemoglobin A1c 6.3 Calcium 9.6 Phosphorus 3.0 Magnesium 2.2 Total Bilirubin 0.7 AST 26 ALT 34 Alkaline Phosphatase 72 Lactate Dehydrogenase Troponin I < 0.01 0.01 Total Protein 8.7 H Albumin 4.1 Globulin 4.6 Albumin/Globulin Ratio 0.9 L Triglycerides 104 Cholesterol 174 LDL Cholesterol Direct 101 HDL Cholesterol 37 Carcinoembryonic Ag Prostate Specific Ag TSH 3rd Generation 0.79 07/07/16 07/07/16 08:00 09:00 WBC RBC Hgb Hct MCV MCH MCHC RDW Plt Count MPV Gran % Lymph % (Auto) Dickens % (Auto) Eos % (Auto) Baso % (Auto) Gran # Lymph # Dickens # Eos # Baso # PT INR APTT Sodium Potassium Chloride Carbon Dioxide Anion Gap BUN Creatinine Est GFR ( Amer) Est GFR (Non-Af Amer) Random Glucose Hemoglobin A1c Calcium Phosphorus Magnesium Total Bilirubin AST ALT Alkaline Phosphatase Lactate Dehydrogenase 497 Troponin I Total Protein Albumin Globulin Albumin/Globulin Ratio Triglycerides Cholesterol LDL Cholesterol Direct HDL Cholesterol Carcinoembryonic Ag 1.9 Prostate Specific Ag 1.3 TSH 3rd Generation Assessment & Plan - Assessment and Plan (Free Text) Plan: 51 year old male, active smoker 1/2ppd x 15 years, UDS (+) cocaine, self claimed of no PMH, c/o chest pain and low back pain that started 2 days prior to admission on 07/06/16. He was started with RLE weakness 1 week ago. He was admitted for chest pain, low back pain, and R LE DVT. trops are negative x 3. He is on Zosyn q6, Vanco q12, and Lovenox therapeutic dose while bridging coumadin. Start this morning, Mon, 07/07, pt could not feel his lower extremities , unable to move both legs, and have new onset urinary incontinence. Lumbar MRI showed No cauda equina. Thoracic MRI showed T3, T4 vertebral bodies suspicious for metastatic disease vs osteomyelitis. Fluid collection in ventral epidural space T1 to T5 with cord compression and obliteration of subacrachnoid spaceThis afternoon, he underwent Emergent laminectomy, T2-T4, with Dr Mora. Pus was found in spinal canal. Purulent fluid was sent for gram stain and culture. It is likely from cord compression from anterior aspect of epidural region. He was found (+) cocaine and + old bruise on gluteal b/l. CK was elevated at 313 Neuro - s/p emergent decompression laminectomy, T2-T4 - neurocheck q1 - Watch epidural bleeding from heparin drip - Neurology and neurosurgery on board - morphine PRN, oxycodone PRN Cardio - Maintained normal BP - hydralazine PRN Pulm - bipap HS 10//35 titrate to above 95% GI - Clear liquid diet Nephro - CK 313 - D5/NS @ 100 Endo - maintain euglycemic Heme - R DVT - heparin drip based ht and age (ideal body wt) - hypercoagulable workup - pending Antithrombin III activity, factor V mutation , Lupus anticoags, protein C/S activity Infectious - epidural abscess - pus drained from spinal canal - watch meningitis - Echocardiogram to r/o endocarditis - CT chest/Abd/Pelvis with PO and IV contrast to r/o cancer, paraneoplastic - continue meropenem, vanco - Pending HIV, Hepatitis panel Prophylaxis - Heparin drip - Protonix S/R/D/w Dr. Audelia Marc - Date & Time Date: 07/07/16 Time: 18:15 <Cecy Marc MD - Last Filed: 07/07/16 18:56> Meds - Medications Medications: Current Medications Hydralazine HCl (Apresoline) 10 mg IVP Q6 PRN PRN Reason: FOR SBP>170 & Diastolic>100 Vancomycin HCl (Vancomycin 1gm) 250 mls @ 167 mls/hr IVPB Q12H DONAL PRN Reason: Protocol Last Admin: 07/07/16 18:48 Dose: 167 mls/hr Meropenem 1g/NS 100mL IVPB (Meropenem 1g/Ns 100ml Ivpb) 100 mls @ 100 mls/hr IVPB Q8 DONAL PRN Reason: Protocol Stop: 07/21/16 14:01 Last Admin: 07/07/16 18:47 Dose: 100 mls/hr Dextrose/Sodium Chloride (Dextrose 5%/0.9% Ns 1000 Ml) 1,000 mls @ 100 mls/hr IV .Q10H [facility] Last Admin: 07/07/16 18:45 Dose: 100 mls/hr Heparin Sodium/Sodium Chloride (Heparin 23048 Units/250ml 1/2 Normal Saline) 250 mls @ 19.006 mls/hr IV .[id number] PRN; Protocol; 14.35 UNITS/KG/HR PRN Reason: ADJUST RATE PER PROTOCOL Last Admin: 07/07/16 18:44 Dose: 19.006 mls/hr Morphine Sulfate (Morphine) 1 mg IVP Q4H PRN PRN Reason: Pain, severe (8-10) Oxycodone/Acetaminophen (Percocet 5/325 Mg Tab) 1 tab PO Q4 PRN PRN Reason: Pain, Mild (1-3) Stop: 07/10/16 15:56 Pantoprazole Sodium (Protonix Inj) 40 mg IVP DAILY DONAL Last Admin: 07/07/16 18:49 Dose: 40 mg Results - Vital Signs Recent Vital Signs: Last Vital Signs Temp 97.2 F L 07/07/16 16:28 Pulse 79 07/07/16 16:28 Resp 15 07/07/16 16:28 BP 145/79 07/07/16 16:28 Pulse Ox 97 07/07/16 16:28 - Labs Result Diagrams: 07/07/16 06:45 07/07/16 06:45 Labs: Laboratory Results - last 24 hr 07/07/16 17:15 Urine Color Yellow Urine Appearance Clear Urine pH 5.5 Ur Specific [place] >= 1.030 Urine Protein 30 H Urine Glucose (UA) Negative Urine Ketones Negative Urine Blood Large H Urine Nitrate Negative Urine Bilirubin Small H Urine Urobilinogen 0.2 Ur Leukocyte Esterase Negative Urine RBC 2 - 5 Urine WBC 2 - 5 Ur Epithelial Cells 0 - 2 Urine Bacteria Small Coarse Granular Casts Trace H Urine Opiates Screen Positive H Urine Methadone Screen Negative Ur Barbiturates Screen Negative Ur Phencyclidine Scrn Negative Ur Amphetamines Screen Negative U Benzodiazepines Scrn Positive H U Oth Cocaine Metabols Positive H U Cannabinoids Screen Negative Attending/Attestation - Attestation I have personally seen and examined this patient.: Yes I have fully participated in the care of the patient.: Yes I have reviewed all pertinent clinical information: Yes Notes (Text): 07/07/16 18:50 51 y/o M who presented to [place] with subacute Cord compression of the mid thoracic spine. MRI revealed mid thoracic cord compression from external mass and epidural space collection. Emergently was given Steroids on the medical floor adn NSG was consulted for urgent Laminectomy. I saw the patient post op from Laminectomy . AAo x 3. Does not admit to any medical history of falls, injury, IV drug use or recent infections. 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 No recent travel or times of stasis. Pt had a MRI which showed questionable mass in the posterior mediastinum that is concerning . Does have 30pk year smoking hx and is high risk. Would get Ct chest, abd and pelvis tonight Neurochecks q 1hr Continue to follow blood, urine and wound cx. Continue broad spectrum abx with Meropenum or Cefepime and Vancomycin. Monitor ROSELYN drainage tonight.D/W NSG Found to have new VTE DVT R LEG Unclear cause but maybe due to some paraneoplastic reason. Hypercoaguable work up pending. Heparin drip on hold awaiting to start, cleared by NSG team for acute DVT. Monitor ROSELYN drainage. 2D Echo pending as well. cc time 72 min
[2016-07-07] MEDS ORDERED: Desflurane Inhalation Anesthetic Liq (240 ml) ONE (12:56)
--- NOTE | 2016-07-07 13:02 | CP.PCM.PN ---
<Keri Guzman - Last Filed: 07/07/16 16:38> Subjective - Date & Time of Evaluation Date of Evaluation: 07/07/16 Time of Evaluation: 12:59 - Subjective Subjective: HOSPITALIST PROGRESS NOTE Pt is seen and examined at bedside. Pt states that this morning, he could not feel his lower extremities and is unable to move both his legs. Patient also has urinary incontinence. When pt presented to ED, pt was able to ambulate with slight difficulty. He states that his LE weakness began about 1 week ago. He denies having any recent trauma or recent travels. Patient denies having any CP , SOB, abd pain, N/V/D/C. Objective - Vital Signs/Intake and Output Vital Signs (last 24 hours): Temp Pulse Resp BP Pulse Ox 97.2 F L 88 17 168/78 H 97 07/07/16 12:10 07/07/16 12:10 07/07/16 12:10 07/07/16 12:10 07/07/16 12:10 Intake and Output: 07/07/16 07/07/16 06:59 18:59 Intake Total 360 Output Total 0 Balance 360 - Medications Medications: Current Medications Enoxaparin Sodium (Lovenox) 140 mg SC Q12H DONAL PRN Reason: Protocol Piperacillin Sod/Tazobactam Sod (Zosyn 3.375 In Ns 100ml) 100 mls @ 200 mls/hr IVPB Q6 DONAL PRN Reason: Protocol Stop: 07/07/16 18:29 Vancomycin HCl (Vancomycin 1gm) 250 mls @ 167 mls/hr IVPB Q12H DONAL PRN Reason: Protocol Morphine Sulfate (Morphine) 1 mg IVP Q6H PRN PRN Reason: Pain, severe (8-10) Last Admin: 07/06/16 23:24 Dose: 1 mg Pantoprazole Sodium (Protonix Inj) 40 mg IVP DAILY DONAL Warfarin Sodium (Coumadin) 5 mg PO HS DONAL PRN Reason: Protocol Last Admin: 07/06/16 23:24 Dose: 5 mg - Labs Labs: 07/07/16 06:45 07/07/16 06:45 PT 10.6 Seconds (9.9-11.8) 07/07/16 06:45 INR 0.98 (0.93-1.08) 07/07/16 06:45 APTT 33.4 Seconds (23.7-30.8) H 07/07/16 06:45 - Constitutional Appears: In Acute Distress (unable to move his LE B/L) - Head Exam Head Exam: ATRAUMATIC, NORMAL INSPECTION - Eye Exam Eye Exam: EOMI Pupil Exam: PERRL - ENT Exam ENT Exam: Mucous Membranes Moist - Respiratory Exam Respiratory Exam: Clear to Ausculation Bilateral. absent: Accessory Muscle Use , Rhonchi, Wheezes - Cardiovascular Exam Cardiovascular Exam: REGULAR RHYTHM, +S1, +S2 - GI/Abdominal Exam GI & Abdominal Exam: Soft, Normal Bowel Sounds. absent: Distended, Firm, Guarding, Rigid, Tenderness - Extremities Exam Extremities Exam: absent: Calf Tenderness, Pedal Edema - Neurological Exam Neurological Exam: Alert, Awake, CN II-XII Intact, Motor Sensory Deficit (in LE B/L), Oriented x3 Neuro motor strength exam: Left Upper Extremity: 5, Right Upper Extremity: 5, Left Lower Extremity: 0, Right Lower Extremity: 0 - Psychiatric Exam Psychiatric exam: Normal Affect, Normal Mood - Skin Skin Exam: Dry, Intact, Normal Color, Warm Assessment and Plan - Assessment and Plan (Free Text) Assessment: 51 year old male with no significant past medical history presented for sudden back pain that radiates down to his r LE associated with R numbness and CP. EKG on admission showed NSR and troponins x2 were negative. Lipid profile and TSH are WNL. CXR was negative. US of LE showed R LE DVT. Lumbar CT showed disc bulging from L3-S1 with foraminal stenosis. STAT MRI c/ and w/o contrast this morning showed fluid collection in ventral epidural space from T1-T5 with cord compression and obliteration of subarachinoid space; abnormal signal in T3&T4 which may represent osteomyelitis vs. metastatic dz; no disc herniation, spinal canal stenosis or neuroforaminal narrowing. Lumbar spine MRI was negative for cauda equina. Please see full reports for details. Plan: 1. Fluid collection in ventral epidural space T1-T5 - Pt underwent lamenectomy today by neurosurgery. Fluid was sent for gram stain and culture. drain is in place draining bloody/serrosang fluid - Pt will be transferred to ICU for closer monitoring - ID, Dr. Solitario is consulted. Abx per ID rec. Currently on Zosyn and Vanco - Blood cultures were taken, awaiting results - ICU consult requested - Pt made NPO - Will get CT of chest/abd/pelvis to R/O malignancy. Will also do hypercoagulable workup 2. R LE DVT - Pt will be started on heparin drip and closely monitored for bleeding at surgical site (via drain output). If bleeding develops, giving vit K. - Hypercoag workup ordered - Heme consult, Dr. Warren requested. Awaiting recs 3. CP R/O ACS - Cardio is consulted - will get echo. No previous records available for comparison - Hgb A1c is 6.3 4. Prophylaxis - Protonix - Lovenox Case discussed with attending, Dr. Tutu Marc <Tutu Marc - Last Filed: 07/07/16 17:24> Objective - Vital Signs/Intake and Output Vital Signs (last 24 hours): Temp Pulse Resp BP Pulse Ox 97.2 F L 79 15 145/79 97 07/07/16 16:28 07/07/16 16:28 07/07/16 16:28 07/07/16 16:28 07/07/16 16:28 Intake and Output: 07/07/16 07/07/16 06:59 18:59 Intake Total 75 Balance 75 - Medications Medications: Current Medications Heparin Sodium (Porcine) (Heparin) 10,800 units IV ONCE ONE PRN Reason: Protocol Stop: 07/07/16 16:28 Vancomycin HCl (Vancomycin 1gm) 250 mls @ 167 mls/hr IVPB Q12H DONAL PRN Reason: Protocol Meropenem 1g/NS 100mL IVPB (Meropenem 1g/Ns 100ml Ivpb) 100 mls @ 100 mls/hr IVPB Q8 DONAL PRN Reason: Protocol Stop: 07/21/16 14:01 Lactated Ringer's (Lactated Ringer's) 1,000 mls @ 75 mls/hr IV .[id number] DONAL Stop: 07/07/16 18:01 Potassium Chloride/Dextrose/Sod Cl (Potassium Chl 20 Meq In D5-1/2ns) 1,000 mls @ 125 mls/hr IV .Q8H DONAL Morphine Sulfate (Morphine) 1 mg IVP Q4H PRN PRN Reason: Pain, severe (8-10) Oxycodone/Acetaminophen (Percocet 5/325 Mg Tab) 1 tab PO Q4 PRN PRN Reason: Pain, Mild (1-3) Stop: 07/10/16 15:56 Pantoprazole Sodium (Protonix Inj) 40 mg IVP DAILY DONAL - Labs Labs: PT 10.6 Seconds (9.9-11.8) 07/07/16 06:45 INR 0.98 (0.93-1.08) 07/07/16 06:45 APTT 33.4 Seconds (23.7-30.8) H 07/07/16 06:45 Attending/Attestation - Attestation I have personally seen and examined this patient.: Yes I have fully participated in the care of the patient.: Yes I have reviewed all pertinent clinical information, including history, physical exam and plan: Yes Notes (Text): I have seen and examined patient at bedside. This is 51 year old male with no significant pmh who got admitted for evaluation of back pain which started about a week ago which was radiating to his right lower extremity until last night and this morning progressed to bilateral LE weakness and numbness. He also had urinary retention and overflow incontinence. He was found to have acute right LE DVT. Lumbar CT showed disc bulging from L3-S1 with foraminal stenosis. MRI stat was done this morning which revealed fluid collection in ventral epidural space from T1-T5 with cord compression and obliteration of subarachinoid space which could be due to osteomyelitis vs. metastatic disease. Neurosurgery took the patient emergently to OR for laminectomy and epidural abscess was drained. Cultures were sent. He is on vanco and meropenem. HIV, procal pending. Patient denies IVDA. CT chest, abdomen and pelvis pending. Coumadin and lovenox held. Patient is started on heparin drip. Discussed with NS and billboard mechanic. Hypercoagulable work up pending. Cardiology consult pending for chest pain. Echo pending. Urology consult ordered for urinary retention. Patient will be closely monitored in ICU. Dr Tutu Marc
[2016-07-07] MEDS ORDERED: Phytonadione 10 mg/ml Inj (Adult) ONE (13:25)
[2016-07-07] MEDS ORDERED: Morphine 4 mg/ml ISec ONE (14:07)
[2016-07-07] MEDS ORDERED: Bacitracin Ointment 30 GM TUBE ONE (14:58)
[2016-07-07] MEDS ORDERED: Neostigmine Methylsulfate 3mg/3ml Syringe IV ONE (15:01)
[2016-07-07] MEDS ORDERED: Morphine 2 mg/ml ISec IVP PRN (15:47)
--- NOTE | 2016-07-07 15:53 | CON ---
DATE: 07/07/2016 REASON FOR CONSULTATION: Inability to move legs and urinary incontinence. HISTORY OF PRESENT ILLNESS: The patient is a [id number] gentleman who states he was on the job last weekend, 9 days ago or so, when he started to complain of back pain. He just kind of put up with it during the week, but this past weekend he began to get tingling down the right leg. The pain became much more severe. According to the resident's note, he went to [facility] because he was having some chest pain as well, but he was just given ibuprofen and then he had left the Emergency Room there before getting a full evaluation because he was not happy with the care he was getting. He called and had an ambulance bring him to the Emergency Room on Thursday because he was unable to ambulate secondary to his back pain and right leg weakness. Evidently, initially he denied any bowel or bladder incontinence or saddle anesthesia. However, he tells me that it has been a few days that he has only been able to pee a little bit at a time. He also states that late last night he realized he could not really feel or move either of his legs. A followup was done with [facility] and evidently they did a CT angiogram which was negative for any type of aortic dissection and then it was after that that the patient left. PAST MEDICAL HISTORY: The patient denies any past medical history. MEDICATIONS: He denies being on any prescription medications. ALLERGIES: No known allergies. PAST SURGICAL HISTORY: He denies any past surgical history. SOCIAL HISTORY: Evidently, he has been a pack a day smoker for at least 15 years. He takes a couple of beers each day but denies any IV drug abuse. PHYSICAL EXAMINATION: He has a sensory level in the mid chest just below the xiphoid process. He states he feels nothing to touch below that and has no active contraction of movement of either lower extremity. No clonus or Paredes' s. Distal pulses are fine. The resident's note from last evening states that his sensory exam was intact in both upper and lower extremities. He just had a stat MRI done this morning and I reviewed the films while the patient was on the table as well as with the radiologist. It appears to show an epidural fluid collection behind just above the T1-T2 disk space extending behind the bodies of T2, T3, and T4, and ending just at the level or just below the T4-T5 disk space. The radiologist feels there may be a little fluid collection anterior to the bodies as well, but there is significant cord compression central and some a little eccentric to the right. There may be a little marrow signal change within the T3 and T4 bodies, but no evidence of any disk disruption and the radiologist did not feel this looked like any kind of epidural tumor, but rather more like a fluid collection. Again, the patient states this happened on the job a week ago Thursday, but it just gradually became more severe, especially over this past weekend. He denies any history of being ill or fevers, chills, nothing of that nature. DIAGNOSTIC DATA: His white count is 13.4. He is not anemic. Granulocytes are 80%. IMPRESSION: That of paraplegia with urinary incontinence most likely secondary to cord compression from T2-T4. He is being taken emergently to the operating room to perform a decompressive laminectomy. It was explained to the patient that there is no guarantee that he gets partial or complete return of function of his lower extremities, either sensory rodarte or motor rodarte. Also, we will place a Mackenzie catheter after he has been intubated and there is no guarantee that he regains partial or complete urinary function as well. He understands this, but also understands that this is an emergency that is being done to try and reverse what has been happening over the past day to couple of days. He has signed the consent and we are taking him to the operating room at this time. Clifton Mora MD cc: [id number] TT: 07/07/2016 15:53:13 Confirmation # [id number] Dictation # [id number] sn [place]
--- NOTE | 2016-07-07 15:54 | PCM.SURG1 ---
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
[2016-07-07] MEDS ORDERED: Oxycodone/Acetaminophen 5/325 mg Tab PO PRN (15:55)
[2016-07-07] MEDS ORDERED: Lactated Ringer's 1,000 ML IV SCH (16:00)
[2016-07-07] MEDS ORDERED: Potassium Ch 20mEq in D5-1/2NS 1,000 ML IV SCH (16:00)
--- NOTE | 2016-07-07 16:31 | CARD ---
APPROVED REPORT EKG Measurement Heart [id number] ND 108P-15 [id number] <Conclusion> Sinus rhythm with short ND Otherwise normal ECG
--- NOTE | 2016-07-07 16:55 | CON ---
DATE: 07/07/2016 I asked to see the patient for followup. Chest pain possible. Going to the OR for a spinal abscess. Came to see the patient, found the patient was in PACU. When went to the PACU, patient was in OR f or possible drainage of a spinal abscess. We will do the consult later on. Chart reviewed but did n ot see the patient. After seeing the patient, a detailed consult to follow. Jarrod Barbour MD cc: [id number] TT: 07/07/2016 16:54:25 Confirmation # [id number] Dictation # [id number] sn
--- NOTE | 2016-07-07 17:01 | CON ---
DATE: 07/07/2016 The patient was seen in the PACU prior to going to the OR, and I was called by the resident caring fo r the patient to see this patient. CHIEF COMPLAINT: Unable to move lower extremity times several days. The patient is complaining of w eakness and back pain for several days. HISTORY OF PRESENT ILLNESS: This is a 51-year-old male with gradual weakness. He states it has been continuously getting weak for over several days. In the Emergency Room, he appeared overall weak, a nd he said he has been having back pain over several days. REVIEW OF SYSTEMS: Denies any fevers, any chills, any chest pain. He does have occasional cough and it is this smoker's cough. He is a long time continuous smoker. He denies any abdominal pain, diar nader or constipation. He is unable to pass his urine and no rash or joint pain. PAST MEDICAL HISTORY: He denies any medical problems and he states he has not had any operations in the past. MEDICATIONS: He takes no medications at home: SOCIAL HISTORY: He lives by himself. 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 He has no exposur e to tuberculosis. He denies any intravenous drug abuse. He has not traveled outside the country in many, many years. He was outside the country many years ago, he states in [place]. He denies intra venous drug abuse or exposure to tuberculosis. Denies any recent dental work done. He does drink al cohol every day. PHYSICAL EXAMINATION: GENERAL: He is in bed with a temperature of 97, blood pressure is 170/80, respiratory rate of 18, he art rate of 72. HEENT: Unremarkable. NECK: Supple. LUNGS: Have decreased breath sounds. HEART: Normal S1, S2. ABDOMEN: Soft and nontender. EXTREMITIES: He is unable to move his lower extremities. LABORATORY EXAMINATION: Reveals the patient to have white count of 13,400, hemoglobin of 14 and plat elets of 249. His INR is noted. The patient had a chest x-ray which was negative. Also had an MRI of the thoracic and lumbar spine, which shows cord compression with aberration of the subarachnoid sp luzmaria. The patient also had an ultrasound of the lower extremities which shows a DVT in his right leg. He also had a carcinoembryonic antigen 1.9. PSA is 1.3. TSH is and LFTs are normal. No uri nalysis is available. HIV has been ordered. The patient was given antibiotics and vancomycin and Zo syn and procalcitonin was ordered by Dr. Vazquez. The patient has not been to a dentist in a long time , but no dental issues at this time. ASSESSMENT AND PLAN: He is a 51-year-old male who is a long time smoker, alcohol abuser with obesity . Admitted now with cord compression with lower extremity paralysis. Must rule out underlying malig ed versus vertebral osteomyelitis and/or diskitis. We will treat the patient with vancomycin and meropenem pending initial culture. The patient is at this time scheduled for OR for a laminectomy an d we will check on the OR cultures. Case discussed with the resident and the house staff, and we sangita l make further recommendations upon availability of initial results. Colt Coronel MD cc: [id number] TT: 07/07/2016 17:00:52 Confirmation # [id number] Dictation # [id number]
[2016-07-07 17:26] LABS: PH,URINE 5.5 (4.7-8.0); URINE BILIRUBIN SMALL (NEGATIVE); URINE BLOOD LARGE (NEGATIVE); URINE GLUCOSE (UA) NEGATIVE (NEGATIVE); URINE LEUKOCYTE ESTERASE NEGATIVE Leu/uL (NEGATIVE); URINE NITRATE NEGATIVE (NEGATIVE); URINE PROTEIN 30 mg/dL (<30 mg/dL); URINE UROBILINOGEN 0.2 E.U./dL (<1 E.U./dL)
[2016-07-07 17:27] LABS: URINE APPEARANCE CLEAR (CLEAR); URINE COLOR YELLOW (YELLOW)
[2016-07-07 17:41] LABS: URINE BACTERIA SMALL (NEG); URINE COARSE GRANULAR CAST TRACE /hpf (0-2); URINE EPITHELIAL CELLS 0 - 2 /hpf (0-5)
[2016-07-07 17:50] LABS: BARBITURATES, UR NEGATIVE (NEGATIVE); BENZODIAZEPINES, UR POSITIVE (NEGATIVE); OPIATES, UR POSITIVE (NEGATIVE); PHENCYCLIDINE, UR NEGATIVE (NEGATIVE)
--- NOTE | 2016-07-07 18:08 | CON ---
DATE: 07/07/2016 REASON FOR CONSULTATION: Chest pain, back pain, cardiac evaluation. BRIEF CLINICAL HISTORY: This is a 51-year-old male with no significant past medical history. 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 Initial MRI shows suspicious for possible spinal abs cess but cannot rule out malignancy. The patient was seen today in PACU now after having drainage of spinal abscess. The patient denies any chest pain, shortness of breath, any palpitation prior. PAST MEDICAL HISTORY: Nothing significant. SOCIAL HISTORY: Smokes a pack a day 15 years. Two cans of beer everyday. Denies any substance abus e. FAMILY HISTORY: Denies any history of coronary artery disease, but brother and mother have diabetes. CURRENT MEDICATIONS: None. ALLERGIES: No known drug allergies. REVIEW OF SYSTEMS: As per HPI. PHYSICAL EXAMINATION: As follows: VITAL SIGNS: Temperature afebrile, heart rate 79, blood pressure 145/79. HEENT: PERRLA, intact. NECK: Supple. No carotid bruits. No thyromegaly. CHEST: Clear to auscultation. HEART: S1, S2 regular. ABDOMEN: Soft. EXTREMITIES: Clubbing and cyanosis negative. EKG shows normal sinus. No acute ST-T changes noted. BLOOD WORKUP: As follows: WBC 12.4, hemoglobin 14.2, hematocrit 40.8, platelet count 249. Chemistr y shows sodium 136, potassium 4.5, chloride 90, carbon dioxide 26, anion gap of 17, BUN 24, creatinin e 1.0. Troponin 0.01, negative. IMPRESSION: Chest pain is atypical, radiating from the back of the chest to the front, probably seco ndary to spinal abscess, status post drainage of the abscess; obesity. No other medical problem. Th e patient was seen in Post Anesthesia Care Unit. We will closely follow. We will get an echo to ass ess left ventricular function and we will put p.r.n. hydralazine to control the blood pressure. The patient is going for next 24 hours in intensive care unit. We will follow with you. Thank you, Dr. Tutu Marc, for providing us the opportunity in taking care of the patient. Thank you for providing us the opportunity in taking care of the patient. Jarrod Barbour MD cc: [id number] TT: 07/07/2016 18:07:43 Confirmation # [id number] Dictation # [id number] sn
[2016-07-07] MEDS: Heparin25000 units/250ml 1/2NS 250 ML IV PRN (18:44)
[2016-07-07] MEDS: Dextrose 5%/0.9% NS 1,000 ML IV SCH (18:45)
[2016-07-07] MEDS: Meropenem 1g/NS 100mL IVPB 100 ML IVPB SCH ×2 (18:47→21:37)
[2016-07-07] MEDS: Vancomycin 1gm in NS 250ml 250 ML IVPB SCH (18:48)
--- NOTE | 2016-07-07 20:04 | CON ---
DATE: 07/07/2016 HISTORY OF PRESENT ILLNESS: This is a 51-year-old male who has been complaining of low back pain. Robert tao was at his work and started complaining of back pain. He just kind of put up with it, but this wee kend he began to get tingling down to the right leg and the pain became more severe. He went to [facility] Emergency Room and left Emergency Room before getting evaluation; then brought himself to [facility]. On Thursday he was unable to ambulate secondary to back pain and develop ed right leg weakness. He also has bladder and bowel incontinence and then he realized he could not feel or move either of his legs. MRI of the thoracic and lumbar spine was done. PAST MEDICAL HISTORY: The patient denies any past medical history, but does not go to a doctor. I s poke to his sister who is at bedside. SOCIAL HISTORY: The patient smokes a pack per day for many years. He denies drug abuse. PHYSICAL EXAMINATION: HEENT: Normocephalic, atraumatic. NECK: Supple. NEUROLOGIC: Awake, alert, oriented x 3. No aphasia. Cranial nerves II through XII were tested. Pu pils reactive. EOMs intact. Visual black full. No facial asymmetry. Tongue midline. MOTOR: Moves both the upper extremities spontaneously. SENSORY: He does not feel anything below the xiphisternum, and distally does not feel even proprioce ption of the toes and does not feel any pain, prick or touch sensation below the xiphisternum. MRI w as done and showed an epidural fluid collection just above T1 and T2 disk space and behind 2, 3 and 4 , ending at the level of T4 and T5, causing significant cord compression. Dr. Mora took him to do the operation room and did a decompressive laminectomy. At the moment, patient does not get any sen sation below the xiphisternum. CEREBELLAR AND GAIT: Cerebellar: No dysmetria of the upper extremities, but unable to move the lowe r extremities. Gait was deferred. IMPRESSION AND PLAN: Status post decompressive surgery at T2 through T4 with cord compression and he miplegia. Will follow up. Narendra Koch MD cc: [id number] TT: 07/07/2016 20:03:31 Confirmation # [id number] Dictation # [id number] mn
[2016-07-07] MEDS: Morphine 2 mg/ml ISec IVP PRN (22:25)
[2016-07-07 22:34] LABS: HEPATITIS B SURFACE AG NEGATIVE (NEGATIVE)
[2016-07-07 22:39] LABS: HEPATITIS A IGM NEGATIVE (NEGATIVE); HEPATITIS B CORE AB NEGATIVE (NEGATIVE)
[2016-07-07 22:51] LABS: HEPATITIS C ANTIBODY NEGATIVE (NEGATIVE)
[2016-07-08] MEDS: Vancomycin 1gm in NS 250ml 250 ML IVPB SCH ×2 (00:06→11:37)
[2016-07-08] MEDS: Morphine 2 mg/ml ISec IVP PRN ×7 (02:44→23:58)
[2016-07-08] MEDS: Meropenem 1g/NS 100mL IVPB 100 ML IVPB SCH ×3 (05:05→21:36)
[2016-07-08] MEDS ORDERED: Barium Sulfate Susp 2.1% w/v, 2.0% w/w 450 mL Bottle PO ONE (06:07)
[2016-07-08 06:21] LABS: BASO # 0.01 K/mm3 (0.0-2.0); BASO % 0.1 % (0.0-3.0); EOS % 0.3 % (1.5-5.0); GRAN # 8.75 (1.4-6.5); GRAN % 78.9 % (50.0-68.0); HEMOGLOBIN 11.8 gm/dL (14.0-18.0); LYMPH # 1.2 (1.2-3.4); LYMPH % 10.6 % (22.0-35.0); MEAN CELL VOLUME 90.6 fL (80.0-105.0); MEAN CORPUSCULAR HEMOGLOBIN 30.9 pg (25.0-35.0); MEAN CORPUSCULAR HGB CONC 34.1 g/dl (31.0-37.0); MEAN PLATELET VOLUME 11.3 fl (7.0-11.0); MONO # 1.1 (0.1-0.6); MONO % 10.1 % (1.0-6.0); PLATELET COUNT 225 10^3/uL (120.0-450.0); RBC 3.82 10^6/uL (3.5-6.1); RED CELL DISTRIBUTION WIDTH 13.4 % (11.5-14.5); WHITE BLOOD COUNT 11.1 10^3/ul (4.5-11.0)
[2016-07-08 06:28] LABS: INR 0.97 (0.93-1.08); PROTHROMBIN TIME 10.5 Seconds (9.9-11.8)
[2016-07-08 06:35] LABS: ALB/GLOB RATIO 0.9 (1.1-1.8); ALBUMIN 3.3 g/dL (3.0-4.8); ALT/SGPT 32 U/L (7-56); AST/SGOT 30 U/L (15-59); BLOOD UREA NITROGEN 30 mg/dL (7-21); CALCIUM 8.3 mg/dL (8.4-10.5); GFR AFRICAN-AMERICAN > 60; GFR NON-AFRICAN AMERICAN > 60
[2016-07-08 06:50] LABS: CK MB% 1.1 % (2.5-3.0); CK-MB 6.1 ng/mL (0.0-3.6)
[2016-07-08] MEDS ORDERED: Simethicone 40 mg/0.6 ml Liquid (30 ml) PO ONE (07:30)
--- NOTE | 2016-07-08 08:24 | OP ---
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 OPERATION: T2 to T4 decompressive laminectomy. SURGEONS: Dr. Mora. TANK SHOP SUPERVISOR: Dr. Mclean. ANESTHESIA: General endotracheal tube intubation. INDICATIONS FOR SURGERY: The patient is a 51-year-old gentleman that evidently began to complain of back pain and tingling and then he went to [facility] with the complaint of left-sided chest pain as well. A CT angiogram was done, which did not show any evidence of pulmonary embolus. He was not happy with the care there and evidently left knee before a full evaluation was done. However, his symptoms progressed, he came to the Emergency Room here and was admitted last night. Evidently he was able to ambulate some and he did not report any bowel or bladder incontinence. He does state that sometime late last night he felt he could no longer move either leg and could not feel anything in them. We were called this morning and ordered a stat MRI to be done of his thoracic spine, as a CAT scan of the lumbar spine did not show any significant abnormalities that could be an etiology of his symptoms. I came to the hospital and reviewed the MRI films as they were being done in the machine and there was a ventral epidural mass extending from about the T1-T2 disk space down to the L4-L5 disk space. I reviewed them with Dr. Herrera, the radiologist, and he felt there may be some signal change within the T3 and T4 bodies as well. The patient was emergently brought from the MRI suite directly up to the operating room. He was evaluated there where examination showed good movement of the neck and upper extremities, but a sensory level just below the xiphoid process to light touch and no obvious sensory or motor function of either lower extremity. The findingsof the MRI were discussed with him and he signed the consent to proceed with the Emergency decompressive laminectomy. PROCEDURE: The patient was brought into the operating room and general anesthesia was achieved. No antibiotics were administered as we wanted to hold them to see if this was indeed infectious process first. A Mackenzie catheter was inserted and immediately 1100 mL of urine was obtained. The patient was then gently transferred onto the operating table and placed on rolls, keeping his chest and abdomen free from pressure anteriorly. His arms were padded and tucked in to the side. The area of the lower cervical and upper to mid thoracic region was sterilely prepped and draped. Fluoroscopy was used to try and determined roughly where the levels were and then the skin was infiltrated with lidocaine with epinephrine. An incision was made sharply in the midline, taken down to subcutaneous tissue using sharp and blunt dissection. Hemostasis achieved using electrocautery. The fascia was divided and stripped laterally off the spinous processes and lamina using electrocautery and Villeda elevators. The tissues were held back with angled Weitlaner retractors. A few more fluoroscopic views were taken and the AP view demonstrated that the clamps were between the C7 and T1 spinous processes and just below the T4 spinous process, which was our intended area coming down one level from the superior aspect. Therefore, a Honestly Now bone cutter was used to remove the spinous processes of T2 , T3, and T4 and the lamina was thinned down using high speed drill, as well as a Leksell rongeur. A laminectomy was then carried out with a 2 mm Kerrison rongeur, centrally starting from the 4, 5 interspace and proceeding cephalad. This was then carried out laterally to each side, more on the right as the mass was eccentric to that side. The cord was gently retracted with a small [place] elevator a little towards the midline around the T3-T4 levels and immediate production of purulent fluid came from the ventral area. Some of this fluid was aspirated and culture swabs were used and all of this was sent for stat to the lab for them to do a gram stain. A small Angiocath was placed laterally and irrigated as well until gentle probing with a [place] did not produce any more purulent drainage. The whole area was copiously irrigated with antibiotic solution. Hemostasis achieved with thrombinated Gelfoam powder and a large piece of solid Gelfoam was used to cover the exposed cord. Because of generalized oozing from the patient and the fact that we were uncertain of the history here, along with the fact that when anesthesia placed NG tube in they got some type of blood or coffee ground material, even though the patient stated he had not eaten at all today. Therefore, a small Joe-Rodriguez drain was placed in the wound. The tissues were approximated with 0 Vicryl for the muscle and the fascia. The subcutaneous tissue was copiously irrigated with antibiotic solution and closed in layers with interrupted sutures of 0 and 2-0 Vicryl. The skin was closed with eileen. Bacitracin ointment and sterile dressing were applied. The patient was gently transferred back onto his bed in the supine position. He is awakened and extubated. He was taken to recovery room in stable condition. He tolerated the procedure well. Estimated blood loss 400 mL. He received 2 liters of crystalloid during the operation. Clifton Mora MD cc: [id number] TT: 07/07/2016 18:18:29 jn MTDD
--- NOTE | 2016-07-08 08:46 | CP.CCUPN ---
<Uzma Abbott - Last Filed: 07/08/16 12:33> CCU Subjective - Physician Review Events Since Last Encounter (Free Text): 07/08/16 08:41 Pt tolerate bipap well. Complained worsened back pain on movement. Mild pain while at rest. Still cannot feel upper stomach and down Abdomen looks bloated as compared to yesterday Pt has increased phlegms and inspiratory spirometry helps Vomit x2, mucous 100cc, bilous CCU Objective - Vital Signs / Intake & Output Vital Signs (Last 4 hours): Vital Signs Temp Pulse Resp BP Pulse Ox 07/08/16 08:14 97.5 F L 07/08/16 08:00 78 19 161/99 H 95 07/08/16 07:30 74 20 139/74 94 L 07/08/16 07:00 77 40 H 134/90 95 07/08/16 06:30 75 19 162/83 H 94 L 07/08/16 06:00 68 24 153/75 H 91 L 07/08/16 05:30 69 21 137/78 93 L 07/08/16 05:00 74 18 143/86 96 Intake and Output (Last 8hrs): Intake & Output 07/07/16 07/08/16 07/08/16 22:59 06:59 14:59 Intake Total 1264 2271 550 Output Total 630 1210 165 Balance 634 1061 385 Weight 292 lb Intake: IV 844 971 100 Right Antecubital 769 971 100 Oral 420 1300 450 Output: Drainage 50 10 Left Back 50 10 Urine 580 1200 165 Urine, Voided 580 150 Urethral (Mackenzie) 1050 165 Other: Voiding Method Indwelling Catheter Indwelling Catheter - Physical Exam Head: Positive for: Atraumatic, Normocephalic Pupils: Positive for: PERRL Extroacular Muscles: Positive for: EOMI Conjunctiva: Positive for: Normal Mouth: Positive for: Moist Mucous Membranes Neck: Positive for: Trachea Midline. Negative for: Meningeal Signs Respiratory/Chest: Positive for: Clear to Auscultation, Other (Course bronchial sounds, improved after coughing). Negative for: Respiratory Distress, Accessory Muscle Use, Rales, Retracting, Rhonchi Cardiovascular: Positive for: Regular Rate and Rhythm, Normal S1, S2. Negative for: Murmurs Abdomen: Positive for: Distention, Normal Bowel Sounds, Other (obese, No sensation of stomach). Negative for: Tenderness, Peritoneal Signs Back: Positive for: Midline Tenderness (thorarci surgical site, 30cc sanguouns overnight). Negative for: Pain with Leg Raise Upper Extremity: Positive for: Normal Inspection. Negative for: Cyanosis, Edema Lower Extremity: Positive for: Edema, NORMAL PULSES, Other (No sensory and motor ) Neurological: Positive for: GCS=15, CN II-XII Intact, Speech Normal Skin: Positive for: Warm, Dry, Normal Color. Negative for: Rashes Psychiatric: Positive for: Alert, Oriented x 3, Normal Insight, Normal Concentration - Medications Active Medications: Active Medications Generic Name Dose Route Start Last Admin Trade Name Freq PRN Reason Stop Dose Admin Hydralazine HCl 10 mg 07/07/16 17:14 Apresoline IVP Q6 PRN FOR SBP>170 & Diastolic>100 Vancomycin HCl 250 mls @ 167 mls/hr 07/07/16 12:00 07/08/16 00:06 Vancomycin 1gm IVPB 167 mls/hr Q12H DONAL Administration Protocol Meropenem 1g/NS 100mL IVPB 100 mls @ 100 mls/hr 07/07/16 14:00 07/08/16 05:05 Meropenem 1g/Ns 100ml Ivpb IVPB 07/21/16 14:01 100 mls/hr Q8 DONAL Administration Protocol Dextrose/Sodium Chloride 1,000 mls @ 100 mls/hr 07/07/16 18:30 07/07/16 18:45 Dextrose 5%/0.9% Ns 1000 Ml IV 100 mls/hr .Q10H DONAL Administration Heparin Sodium/Sodium Chloride 250 mls @ 19.006 mls/hr 07/07/16 18:20 07/08/16 07:14 Heparin 52492 Units/250ml 1/2 Normal Saline IV 18.35 units/kg/hr .[id number] PRN Titration ADJUST RATE PER PROTOCOL Protocol 14.35 UNITS/KG/HR Morphine Sulfate 1 mg 07/07/16 15:59 07/08/16 06:39 Morphine IVP 1 mg Q4H PRN Administration Pain, severe (8-10) Ondansetron HCl 4 mg 07/08/16 07:30 07/08/16 07:57 Zofran Inj IVP 4 mg Q8H PRN Administration Nausea/Vomiting Oxycodone/Acetaminophen 1 tab 07/07/16 15:55 07/08/16 05:07 Percocet 5/325 Mg Tab PO 07/10/16 15:56 1 tab Q4 PRN Administration Pain, Mild (1-3) Pantoprazole Sodium 40 mg 07/07/16 10:00 07/07/16 18:49 Protonix Inj IVP 40 mg DAILY DONAL Administration - Patient Studies Lab Studies: Microbiology Studies 07/07/16 15:25 Gram Stain - Final Other: Please Indicate 07/07/16 15:25 Gram Stain - Final Other: Please Indicate Lab Studies 07/08/16 07/07/16 07/07/16 Range/Units 05:30 22:58 17:15 WBC 11.1 H (4.5-11.0) 10^3/ul RBC 3.82 (3.5-6.1) 10^6/uL Hgb 11.8 L (14.0-18.0) gm/dL Hct 34.6 L (42.0-52.0) % MCV 90.6 (80.0-105.0) fL MCH 30.9 (25.0-35.0) pg MCHC 34.1 (31.0-37.0) g/dl RDW 13.4 (11.5-14.5) % Plt Count 225 (120.0-450.0) 10^3/uL MPV 11.3 H (7.0-11.0) fl Gran % 78.9 H (50.0-68.0) % Lymph % (Auto) 10.6 L (22.0-35.0) % Chambers % (Auto) 10.1 H (1.0-6.0) % Eos % (Auto) 0.3 L (1.5-5.0) % Baso % (Auto) 0.1 (0.0-3.0) % Gran # 8.75 H (1.4-6.5) Lymph # 1.2 (1.2-3.4) Chambers # 1.1 H (0.1-0.6) Eos # 0.0 (0.0-0.7) Baso # 0.01 (0.0-2.0) K/mm3 PT 10.5 (9.9-11.8) Seconds INR 0.97 (0.93-1.08) APTT 44.0 H 34.5 H (23.7-30.8) Seconds Sodium 134 (132-148) mmol/L Potassium 4.2 (3.6-5.0) mmol/L Chloride 100 (98-107) mmol/L Carbon Dioxide 28 (21-33) mmol/L Anion Gap 10 (10-20) BUN 30 H (7-21) mg/dL Creatinine 1.0 (0.5-1.4) mg/dL Est GFR ( Amer) > 60 Est GFR (Non-Af Amer) > 60 Random Glucose 120 H (70-110) mg/dL Calcium 8.3 L (8.4-10.5) mg/dL Total Bilirubin 0.5 (0.2-1.3) mg/dL AST 30 (15-59) U/L ALT 32 (7-56) U/L Alkaline Phosphatase 54 (38-133) U/L Total Creatine Kinase 536 H (35-230) U/L CK-MB (CK-2) 6.1 H (0.0-3.6) ng/mL CK-MB (CK-2) % 1.1 L (2.5-3.0) % Total Protein 7.0 (5.8-8.3) g/dL Albumin 3.3 (3.0-4.8) g/dL Globulin 3.6 gm/dL Albumin/Globulin Ratio 0.9 L (1.1-1.8) Urine Color Yellow (YELLOW) Urine Appearance Clear (CLEAR) Urine pH 5.5 (4.7-8.0) Ur Specific [place] >= 1.030 (1.005-1.035) Urine Protein 30 H (<30 mg/dL) mg/dL Urine Glucose (UA) Negative (NEGATIVE) mg/dL Urine Ketones Negative (NEGATIVE) mg/dL Urine Blood Large H (NEGATIVE) Urine Nitrate Negative (NEGATIVE) Urine Bilirubin Small H (NEGATIVE) Urine Urobilinogen 0.2 (<1 E.U./dL) E.U./dL Ur Leukocyte Esterase Negative (NEGATIVE) Ang/uL Urine RBC 2 - 5 (0-2) /hpf Urine WBC 2 - 5 (0-6) /hpf Ur Epithelial Cells 0 - 2 (0-5) /hpf Urine Bacteria Small (NEG) Coarse Granular Casts Trace H (0-2) /hpf Urine Opiates Screen Positive H (NEGATIVE) Urine Methadone Screen Negative (NEGATIVE) Ur Barbiturates Screen Negative (NEGATIVE) Ur Phencyclidine Scrn Negative (NEGATIVE) Ur Amphetamines Screen Negative (NEGATIVE) U Benzodiazepines Scrn Positive H (NEGATIVE) U Oth Cocaine Metabols Positive H (NEGATIVE) U Cannabinoids Screen Negative (NEGATIVE) Laboratory Results - last 24 hr 07/07/16 07/07/16 07/08/16 17:15 22:58 05:30 WBC 11.1 H RBC 3.82 Hgb 11.8 L Hct 34.6 L MCV 90.6 MCH 30.9 MCHC 34.1 RDW 13.4 Plt Count 225 MPV 11.3 H Gran % 78.9 H Lymph % (Auto) 10.6 L Chambers % (Auto) 10.1 H Eos % (Auto) 0.3 L Baso % (Auto) 0.1 Gran # 8.75 H Lymph # 1.2 Chambers # 1.1 H Eos # 0.0 Baso # 0.01 PT 10.5 INR 0.97 APTT 34.5 H 44.0 H Sodium 134 Potassium 4.2 Chloride 100 Carbon Dioxide 28 Anion Gap 10 BUN 30 H Creatinine 1.0 Est GFR ( Amer) > 60 Est GFR (Non-Af Amer) > 60 Random Glucose 120 H Calcium 8.3 L Total Bilirubin 0.5 AST 30 ALT 32 Alkaline Phosphatase 54 Total Creatine Kinase 536 H CK-MB (CK-2) 6.1 H CK-MB (CK-2) % 1.1 L Total Protein 7.0 Albumin 3.3 Globulin 3.6 Albumin/Globulin Ratio 0.9 L Urine Color Yellow Urine Appearance Clear Urine pH 5.5 Ur Specific [place] >= 1.030 Urine Protein 30 H Urine Glucose (UA) Negative Urine Ketones Negative Urine Blood Large H Urine Nitrate Negative Urine Bilirubin Small H Urine Urobilinogen 0.2 Ur Leukocyte Esterase Negative Urine RBC 2 - 5 Urine WBC 2 - 5 Ur Epithelial Cells 0 - 2 Urine Bacteria Small Coarse Granular Casts Trace H Urine Opiates Screen Positive H Urine Methadone Screen Negative Ur Barbiturates Screen Negative Ur Phencyclidine Scrn Negative Ur Amphetamines Screen Negative U Benzodiazepines Scrn Positive H U Oth Cocaine Metabols Positive H U Cannabinoids Screen Negative EKG/Cardiology Studies: Cardiology / EKG Studies 07/08/16 07:00 ELECTROCARDIOGRAM Routine Comment: Reason For Exam: CAD PRE OP:: N Does Patient Have a Pacemaker?: No Critical Care Progress Note - Nutrition Nutrition: Nutrition Category Date Time Status Liquid Diet [DIET] Diets 07/07/16 Dinner Ordered Assessment/Plan - Assessment and Plan (Free Text) Plan: 51 year old Obese male, active smoker 1 ppd x 20 years, daily 24oz-beer drinker , last snorting cocaine thursday after eloping from [facility], self claimed of no PMH and denied IVDU, c/o chest pain and lower back pain that started 2 days prior to admission on 07/06/16. He was started with RLE weakness 1 week ago. Start this morning, Mon, 07/07, pt could not feel his lower extremities, unable to move both legs, and have new onset urinary incontinence. Lumbar MRI showed No cauda equina. Thoracic MRI showed T3, T4 vertebral bodies suspicious for metastatic disease vs osteomyelitis. Fluid collection in ventral epidural space T1 to T5 with cord compression and obliteration of subacrachnoid space. Pt became hemiplegia due to T2-T4 with cord compression. Pt underwent Emergent decompressive laminectomy, T2-T4, with Dr Mora. Pus was found in spinal canal. Purulent fluid was sent for gram stain and culture. It is likely from cord compression from anterior aspect of epidural region. He is on Meropenem q8 , Vanco q12. Atypical chest pain resolved, trops negative x 3; it is radiating from spinal abscess. He was found to have R LE DVT. CK 313, old bruises on gluteal region b/l. He was found (+) cocaine. Pt denied trauma or prolonged laying. CTA at [facility] showed no PE, no aortic dissection. Work up on DVT is undergoing, provoked vs unprovoked, malignancy vs inheritary vs immunogenic/connective tissue disease. He is on Lovenox therapeutic dose while bridging coumadin. Held during procedure. Resume heparin drip immediately s/p surgery. Coumadin still on hold. He developed ileus, NGT placed, suction 1100 cc dark materials suctioned out. CT chest/Abd/pelvis with PO and IV contrast showed contrast retention in stomach , ileus, and large amount of stool in bowel. It is likely that he has neurogenic bowel and bladder. Neuro - s/p emergent decompression laminectomy, T2-T4, POD #1 - Worsening sensation loss from T10 to T5 (Per Dr. Mora, pt has sensation loss T5 from yesterday) - Watch epidural bleeding from heparin drip - Neurology and neurosurgery on board - morphine 2q3 PRN, oxycodone 1q4 PRN - Hx of substance abuse - per pt, snorting cocaine 4 times in life, last use was after [facility] on Thursday night. - Will follow up with radiologist re: possible spinal infarct Cardio - Atypical chest pain radiating from spinal abscess - hydralazine 10q6 PRN Pulm - bipap HS 10//35 titrate to above 95% - inspiration spirometry 10 every hour GI - Ileus on CT chest/abd/pelvis - NGT placed. NPO - Consult GI for coffee ground emesis and bowel regimen for neurogenic bowel. Nephro - on Mackenzie. U/O adequate Endo - A1C 6.3 - maintain euglycemic Heme - R DVT - heparin drip based ht and age (ideal body wt) - hypercoagulable workup - pending Antithrombin III activity, factor V mutation , Lupus anticoags, protein C/S activity Infectious - epidural abscess - pus drained from spinal canal - watch meningitis - Echocardiogram (TTE) to r/o endocarditis - CT chest/Abd/Pelvis with PO and IV contrast to r/o cancer, paraneoplastic, or hidden abscess - continue meropenem, vanco - HIV, Hepatitis panel negative Prophylaxis - Heparin drip - Protonix Prognosis - Per Neurosurgery, recovery outcome may vary per individual. Individual nerve regeneration may take 12-18 months. S/R/D/w Dr. Audelia Marc - Date & Time Date: 07/08/16 Time: 07:49 Procedures Attestation:: I certify that I have explained the specified Operation(s) or Procedure(s), risks, benefits and reasonable alternatives to the Patient and/or other person responsible. The opportunity was given to ask questions and all questions answered - Feeding Tube Replacement Type of Tube: nasogastric Insertion Site Prior to Procedure: clean Verification of Placement: other (air syringe and then CXR) Tube Secured by: tape/dressing Patient Tolerated Procedure: well Additional comments: pre-treat with cetacaine spray <Cecy Marc MD - Last Filed: 07/08/16 13:28> CCU Objective - Vital Signs / Intake & Output Vital Signs (Last 4 hours): Vital Signs Pulse Resp Pulse Ox 07/08/16 10:00 79 29 H 97 07/08/16 09:24 70 22 Intake and Output (Last 8hrs): Intake & Output 07/07/16 07/08/16 07/08/16 22:59 06:59 14:59 Intake Total 1264 2271 1000 Output Total 630 1210 1755 Balance 634 1061 -755 Weight 292 lb Intake: IV 844 971 100 Right Antecubital 769 971 100 Oral 420 1300 900 Output: Drainage 50 10 1190 Left Back 50 10 85 Right Nare 1105 Urine 580 1200 565 Urine, Voided 580 150 Urethral (Mackenzie) 1050 565 Other: Voiding Method Indwelling Catheter Indwelling Catheter # Voids Urethral (Mackenzie) 35 - Medications Active Medications: Active Medications Generic Name Dose Route Start Last Admin Trade Name Freq PRN Reason Stop Dose Admin Hydralazine HCl 10 mg 07/07/16 17:14 Apresoline IVP Q6 PRN FOR SBP>170 & Diastolic>100 Vancomycin HCl 250 mls @ 167 mls/hr 07/07/16 12:00 07/08/16 11:37 Vancomycin 1gm IVPB 167 mls/hr Q12H DONAL Administration Protocol Meropenem 1g/NS 100mL IVPB 100 mls @ 100 mls/hr 07/07/16 14:00 07/08/16 13:17 Meropenem 1g/Ns 100ml Ivpb IVPB 07/21/16 14:01 100 mls/hr Q8 DONAL Administration Protocol Heparin Sodium/Sodium Chloride 250 mls @ 19.006 mls/hr 07/07/16 18:20 07/08/16 07:14 Heparin 84779 Units/250ml 1/2 Normal Saline IV 18.35 units/kg/hr .[id number] PRN Titration ADJUST RATE PER PROTOCOL Protocol 14.35 UNITS/KG/HR Dextrose/Sodium Chloride 1,000 mls @ 50 mls/hr 07/08/16 12:51 Dextrose 5%/0.9% Ns 1000 Ml IV .Q20H DONAL Metoprolol Tartrate 25 mg 07/08/16 11:25 Lopressor PO BID DONAL Morphine Sulfate 2 mg 07/08/16 11:18 07/08/16 11:46 Morphine IVP 2 mg Q3H PRN Administration Pain, severe (8-10) Ondansetron HCl 4 mg 07/08/16 07:30 07/08/16 07:57 Zofran Inj IVP 4 mg Q8H PRN Administration Nausea/Vomiting Oxycodone/Acetaminophen 1 tab 07/07/16 15:55 07/08/16 05:07 Percocet 5/325 Mg Tab PO 07/10/16 15:56 1 tab Q4 PRN Administration Pain, Mild (1-3) Pantoprazole Sodium 40 mg 07/07/16 10:00 07/08/16 09:06 Protonix Inj IVP 40 mg DAILY DONAL Administration - Patient Studies Lab Studies: Microbiology Studies 07/07/16 15:25 Gram Stain - Final Other: Please Indicate Wound Culture - Preliminary Gram Positive Cocci 07/07/16 15:25 Gram Stain - Final Other: Please Indicate Lab Studies 07/08/16 07/07/16 07/07/16 Range/Units 05:30 22:58 17:15 WBC 11.1 H (4.5-11.0) 10^3/ul RBC 3.82 (3.5-6.1) 10^6/uL Hgb 11.8 L (14.0-18.0) gm/dL Hct 34.6 L (42.0-52.0) % MCV 90.6 (80.0-105.0) fL MCH 30.9 (25.0-35.0) pg MCHC 34.1 (31.0-37.0) g/dl RDW 13.4 (11.5-14.5) % Plt Count 225 (120.0-450.0) 10^3/uL MPV 11.3 H (7.0-11.0) fl Gran % 78.9 H (50.0-68.0) % Lymph % (Auto) 10.6 L (22.0-35.0) % Chambers % (Auto) 10.1 H (1.0-6.0) % Eos % (Auto) 0.3 L (1.5-5.0) % Baso % (Auto) 0.1 (0.0-3.0) % Gran # 8.75 H (1.4-6.5) Lymph # 1.2 (1.2-3.4) Chambers # 1.1 H (0.1-0.6) Eos # 0.0 (0.0-0.7) Baso # 0.01 (0.0-2.0) K/mm3 PT 10.5 (9.9-11.8) Seconds INR 0.97 (0.93-1.08) APTT 44.0 H 34.5 H (23.7-30.8) Seconds Sodium 134 (132-148) mmol/L Potassium 4.2 (3.6-5.0) mmol/L Chloride 100 (98-107) mmol/L Carbon Dioxide 28 (21-33) mmol/L Anion Gap 10 (10-20) BUN 30 H (7-21) mg/dL Creatinine 1.0 (0.5-1.4) mg/dL Est GFR ( Amer) > 60 Est GFR (Non-Af Amer) > 60 Random Glucose 120 H (70-110) mg/dL Calcium 8.3 L (8.4-10.5) mg/dL Total Bilirubin 0.5 (0.2-1.3) mg/dL AST 30 (15-59) U/L ALT 32 (7-56) U/L Alkaline Phosphatase 54 (38-133) U/L Total Creatine Kinase 536 H (35-230) U/L CK-MB (CK-2) 6.1 H (0.0-3.6) ng/mL CK-MB (CK-2) % 1.1 L (2.5-3.0) % Total Protein 7.0 (5.8-8.3) g/dL Albumin 3.3 (3.0-4.8) g/dL Globulin 3.6 gm/dL Albumin/Globulin Ratio 0.9 L (1.1-1.8) Urine Color Yellow (YELLOW) Urine Appearance Clear (CLEAR) Urine pH 5.5 (4.7-8.0) Ur Specific [place] >= 1.030 (1.005-1.035) Urine Protein 30 H (<30 mg/dL) mg/dL Urine Glucose (UA) Negative (NEGATIVE) mg/dL Urine Ketones Negative (NEGATIVE) mg/dL Urine Blood Large H (NEGATIVE) Urine Nitrate Negative (NEGATIVE) Urine Bilirubin Small H (NEGATIVE) Urine Urobilinogen 0.2 (<1 E.U./dL) E.U./dL Ur Leukocyte Esterase Negative (NEGATIVE) Ang/uL Urine RBC 2 - 5 (0-2) /hpf Urine WBC 2 - 5 (0-6) /hpf Ur Epithelial Cells 0 - 2 (0-5) /hpf Urine Bacteria Small (NEG) Coarse Granular Casts Trace H (0-2) /hpf Urine Opiates Screen Positive H (NEGATIVE) Urine Methadone Screen Negative (NEGATIVE) Ur Barbiturates Screen Negative (NEGATIVE) Ur Phencyclidine Scrn Negative (NEGATIVE) Ur Amphetamines Screen Negative (NEGATIVE) U Benzodiazepines Scrn Positive H (NEGATIVE) U Oth Cocaine Metabols Positive H (NEGATIVE) U Cannabinoids Screen Negative (NEGATIVE) Laboratory Results - last 24 hr 07/07/16 07/07/16 07/08/16 17:15 22:58 05:30 WBC 11.1 H RBC 3.82 Hgb 11.8 L Hct 34.6 L MCV 90.6 MCH 30.9 MCHC 34.1 RDW 13.4 Plt Count 225 MPV 11.3 H Gran % 78.9 H Lymph % (Auto) 10.6 L Chambers % (Auto) 10.1 H Eos % (Auto) 0.3 L Baso % (Auto) 0.1 Gran # 8.75 H Lymph # 1.2 Chambers # 1.1 H Eos # 0.0 Baso # 0.01 PT 10.5 INR 0.97 APTT 34.5 H 44.0 H Sodium 134 Potassium 4.2 Chloride 100 Carbon Dioxide 28 Anion Gap 10 BUN 30 H Creatinine 1.0 Est GFR ( Amer) > 60 Est GFR (Non-Af Amer) > 60 Random Glucose 120 H Calcium 8.3 L Total Bilirubin 0.5 AST 30 ALT 32 Alkaline Phosphatase 54 Total Creatine Kinase 536 H CK-MB (CK-2) 6.1 H CK-MB (CK-2) % 1.1 L Total Protein 7.0 Albumin 3.3 Globulin 3.6 Albumin/Globulin Ratio 0.9 L Urine Color Yellow Urine Appearance Clear Urine pH 5.5 Ur Specific [place] >= 1.030 Urine Protein 30 H Urine Glucose (UA) Negative Urine Ketones Negative Urine Blood Large H Urine Nitrate Negative Urine Bilirubin Small H Urine Urobilinogen 0.2 Ur Leukocyte Esterase Negative Urine RBC 2 - 5 Urine WBC 2 - 5 Ur Epithelial Cells 0 - 2 Urine Bacteria Small Coarse Granular Casts Trace H Urine Opiates Screen Positive H Urine Methadone Screen Negative Ur Barbiturates Screen Negative Ur Phencyclidine Scrn Negative Ur Amphetamines Screen Negative U Benzodiazepines Scrn Positive H U Oth Cocaine Metabols Positive H U Cannabinoids Screen Negative EKG/Cardiology Studies: Cardiology / EKG Studies 07/08/16 07:00 ELECTROCARDIOGRAM Routine Comment: Reason For Exam: CAD PRE OP:: N Does Patient Have a Pacemaker?: No Critical Care Progress Note - Nutrition Nutrition: Nutrition Category Date Time Status Liquid Diet [DIET] Diets 07/07/16 Dinner Ordered Attending/Attestation - Attestation I have personally seen and examined this patient.: Yes I have fully participated in the care of the patient.: Yes I have reviewed all pertinent clinical information: Yes Notes (Text): 07/08/16 13:22 51 y/o M w/ Subacute Cord compression of the Thoracic spine. s/p Laminectomy t2-t4. ROSELYN in place w/o high output Continues to have t5 numbness and no motor strength below the waist. NSG aware. Neurology also consulted to help manage the case. On abx for pus that was drained from Thoracic spine with epidural mass/ abscess. . CX pending. Unclear original site of infection that seeded the spine. Pt does admit to cocaine occasionaly , and was positive on drug screen. Unlikely but may have caused infarct. ? Also today seen to have abdominal distension. CT was done which shows increased stomach fullness and contrast not transitioning. NGT placed, 100cc output dark, coffee grounds. Will need G.I to help manage possible gastroparesis/ neurogenic gut and need to evaluate bleeding. Large lower ext DVT on heparin ggt wihout major HGb drop, but coffee ground emesis noted. . G.I following. Heme/onc started hyper-coaguable workup. DVT P heparin drip. Keep PTT 45-55.Monitor for bleeding. Neurochecks q 1hr. NSg following patient. NPO. May need pro motility agents and bowel regimen. Aggressive PT/OT needed. cc time 72 min
[2016-07-08] MEDS ORDERED: Morphine 2 mg/ml ISec IVP STA (08:58)
--- NOTE | 2016-07-08 09:40 | CARD ---
APPROVED REPORT EKG Measurement Heart [id number] ID [id number] <Conclusion> Normal sinus rhythm Nonspecific ST and T wave abnormalityand Prolonged QT, new
--- NOTE | 2016-07-08 10:01 | CT ---
PROCEDURE: CT Chest, Abdomen and Pelvis with and without intravenous contrast HISTORY: r/o malignancy COMPARISON: None. TECHNIQUE: IV dose administered: 150 cc of Omni 350 Radiation dose: Total exam DLP = 3024 mGy-cm. This CT exam was performed using one or more of the following dose reduction techniques: Automated exposure control, adjustment of the mA and/or kV according to patient size, and/or use of iterative reconstruction technique. FINDINGS: CT CHEST WITH CONTRAST: LUNGS: Clear. No nodule, mass or consolidation. MEDIASTINUM: Unremarkable. Normal caliber aorta and pulmonary arterial trunk. No aortic dissection. Normal size heart. Calcification of the coronary arteries LYMPH NODES: Unremarkable. PLEURA: Unremarkable. No pneumothorax. No pleural fluid. BONES: There has been recent decompressive laminectomy in the upper thoracic spine OTHER FINDINGS: None. CT ABDOMEN AND PELVIS: LIVER: Unremarkable. No gross lesion or ductal dilatation. GALLBLADDER AND BILE DUCTS: Gallstones are seen PANCREAS: Unremarkable. No gross lesion or ductal dilatation. SPLEEN: Unremarkable. ADRENALS: Unremarkable. No mass. KIDNEYS AND URETERS: Unremarkable. No hydronephrosis. No solid mass. VASCULATURE: Unremarkable. No aortic aneurysm. BOWEL: Unremarkable. No obstruction. No gross mural thickening. APPENDIX: Normal appendix. PERITONEUM: Unremarkable. No free fluid. No free air. LYMPH NODES: Unremarkable. No enlarged lymph nodes. BLADDER: Unremarkable. REPRODUCTIVE: Unremarkable. BONES: No acute fracture. OTHER FINDINGS: None. IMPRESSION: No evidence of malignancy
--- NOTE | 2016-07-08 10:44 | PN ---
DATE: 07/08/2016 SUBJECTIVE: The patient is lying in bed with BiPAP on and tolerating it well, status post emergent l aminectomy for a thoracic vertebral abscess. He is still unable to feel anything below his hip area, continues to complain of back pain especially upon movement. PHYSICAL EXAMINATION: VITAL SIGNS: His temperature is 97.5, pulse of 78, respiratory rate of 20, and a blood pressure of 1 43/86. GENERAL: The patient is a middle-aged male lying in bed, in no acute distress. HEAD: Normocephalic, atraumatic. EYES: Pupils equal, round, reactive to light and accommodation. Extraocular muscles are intact. Th ere is no pallor, no icterus is noted. NECK: Supple with no adenopathy, no JVD, no thyromegaly. LUNGS: Clear to auscultation bilaterally with no rales or rhonchi. CARDIOVASCULAR: S1, S2 is heard. ABDOMEN: Positive bowel sounds, soft, nontender, nondistended, no organomegaly is palpated. EXTREMITIES: There is no edema, clubbing, or cyanosis. LABORATORY DATA: Reveal a white count of 11.1, hemoglobin 11.8, hematocrit 34.6, MCV of 90.6 and a p latelet count of 225. White count: Diff is left shifted. Chemistries are within normal limits. PS A and CEA levels are within normal limits. Tox screen was positive for cocaine, benzodiazepines and opiates. Serology is negative for hepatitis and HIV. His CT of the chest, abdomen and pelvis is also negative for any malignancy. MRI of the thoracic and lumbar spine was reviewed. There is possible osteomyelitis versus metastatic disease to T3, T5 area . Currently, pathology is pending. ASSESSMENT AND PLAN: Middle-aged male with unprovoked deep venous thrombosis of the right lower extr emity as well as bilateral lower extremity weakness from a thoracic vertebral abscess, possible osteo myelitis versus metastatic disease. There is no evidence of a mass in the chest, abdomen or pelvis. No anemia. Will also work patient up for multiple myeloma. At this point, the serum protein electr ophoresis has been ordered, awaiting final pathology. Continue anticoagulation with heparin at this point as patient is status post surgery and it would be easier to monitor the patient on heparin vers us a low molecular weight heparin like Lovenox. He will need anticoagulation for at least 6 months. Hypercoag workup is also still pending. Thank you for the consult. We will follow. Marilynn Wong MD cc: [id number] TT: 07/08/2016 10:43:53 Confirmation # [id number] Dictation # [id number] mn
[2016-07-08] MEDS ORDERED: TETRACAINE/BENZOCAINE/BUTAMBEN 20 GM SPRAY TP ONE (11:18)
[2016-07-08] MEDS: Dextrose 5%/0.9% NS 1,000 ML IV SCH ×2 (11:36→12:55)
--- NOTE | 2016-07-08 12:04 | PN ---
DATE: 07/08/2016 REASON FOR CONSULTATION AND FOLLOWUP: Chest pain, cardiac evaluation. Pain is radiating from the ba ck secondary to spinal abscess. BRIEF CLINICAL HISTORY: This is a 51-year-old male with no significant past medical history admitted with 1 week duration of back pain radiating to the chest, found to be spinal abscess, so the patient underwent drainage. Now, the patient is in the ICU. Denies any chest pain, shortness of breath, an y palpitation. PHYSICAL EXAMINATION: VITAL SIGNS: Temperature afebrile, heart rate 70, blood pressure 110/74. HEENT: PERRLA. Extraocular muscles intact. NECK: Supple. No carotid bruits. No thyromegaly. CHEST: Clear to auscultation. HEART: S1, S2 regular. ABDOMEN: Soft. EXTREMITIES: Clubbing and cyanosis negative. LABORATORY DATA: Blood workup as follows: WBC 11.9, hemoglobin 11.8, hematocrit 34.6, platelet coun t 225. Chemistry shows sodium 134, potassium 4.2, chloride 100, carbon dioxide 28, anion gap 10, BUN 30, creatinine 1.0. IMPRESSION: Status post spinal abscess, status post deep venous thrombosis of right common femoral v ein, obesity. No evidence of myocardial infarction. Chest pain is radiating from the spinal abscess . Now, it is completely relieved after drainage of the abscess in the back. RECOMMENDATION: As per resident, the patient is cleared to start anticoagulation from the neurosurge on, so start anticoagulation, rehab as per neurosurgery. We will get an echo to assess LV function. We will follow with you. CVS status is stable. No evidence of acute SD or acute coronary syndrome. We will follow with you. Hemodynamically, the patient is stable. We will put low dose of beta blo cker. The patient is not on medications at home. Possibly this increased blood pressure and heart r ate is secondary to pain and needs adequate analgesia. Jarrod Barbour MD cc: [id number] TT: 07/08/2016 12:04:07 Confirmation # [id number] Dictation # [id number] tn
--- NOTE | 2016-07-08 12:23 | RAD ---
PROCEDURE: Portable chest HISTORY: NG tube placement COMPARISON: TECHNIQUE: Three views FINDINGS: The nasogastric tube is in satisfactory position in the region of the gastric fundus IMPRESSION: As above
--- NOTE | 2016-07-08 12:38 | PN ---
DATE: 07/08/2016 The patient is in bed in no acute distress, nontoxic. PHYSICAL EXAMINATION: VITAL SIGNS: Temperature is 97. Blood pressure is 160/90, respiratory rate of 16. HEENT: Unremarkable. NECK: Supple. LUNGS: Have decreased breath sounds. HEART: Normal S1, S2. ABDOMEN: Soft, nontender. LABORATORY EXAMINATION: Reveals a white count of 11,000, hemoglobin of 11. BUN of 30, creatinine of 1.0. Procalcitonin is 0.12. Urinalysis is noted. Toxicology's review is noted. The patient is po sitive for opiates and positive for cocaine and benzodiazepine. The patient's HIV is nonreactive. H epatitis profile is nonreactive. Microbiology reveals there is a gram-positive cocci from the fluid. The blood cultures are no growth. Review of the medications reveals the patient to be on meropenem and vancomycin. Dr. Marilynn Wong's progress note is reviewed. Surgical notes are reviewed. ASSESSMENT AND PLAN: This is a 51-year-old male, with long-time smoker, alcohol-abuser, obesity, adm itted with cord compression, lower extremity paralysis status post laminectomy with a gram-positive c occi, osteomyelitis and/or diskitis from the operating room culture on vancomycin, meropenem, and aw aiting for further identification and sensitivity of the spinal cord compression, and status post quintana inectomy culture results, and the pathology report. DrDakota ____ note is reviewed. Dr. Koch's note is reviewed. Dr. Mora's operative note is also revi ewed. Infected epidural mass or an abscess formation. Review of the medications reveals the patient is on vancomycin and meropenem. The patient received the vancomycin at midnight. We will order a vancomyc in trough level for tomorrow at 11:00 in the morning prior to the noon dose, and we will make further recommendations. Colt Coronel MD cc: [phone] TT: 07/08/2016 12:37:31 Confirmation # [id number] Dictation # [id number] cristina
--- NOTE | 2016-07-08 12:47 | RAD ---
PROCEDURE: Fluoroscopy up to 1 hour HISTORY: DECOMPRESSIVE LAMINECTOMY T-2 , T-3 , T-4 COMPARISON: TECHNIQUE: Fluoroscopy was provided in the operating room. 35 seconds of fluoroscopy time were utilized. Two images were submitted FINDINGS: Study shows surgical instruments at the T1 through T4 level IMPRESSION: As above
--- NOTE | 2016-07-08 13:31 | CP.PCM.PN ---
Subjective - Date & Time of Evaluation Date of Evaluation: 07/08/16 Time of Evaluation: 13:25 - Subjective Subjective: SPINE - POD #1 Pt resting in ICU bed. Has NG tube placed. No movement of legs. Voiding via haque. VSS. Afebrile. No sensation to light touch in legs. Sensory level about same as pre-op. 30cc drainage from [place]. Plan: Continue post-op care. Prognosis not good as pt has not regained any function thus far post-op. Explained to sister and his boss (with patient's permission) about his diagnosis, procedure, findings, and outlook. Objective - Vital Signs/Intake and Output Vital Signs (last 24 hours): Temp Pulse Resp BP Pulse Ox 97.5 F L 79 29 H 161/99 H 97 07/08/16 08:14 07/08/16 10:00 07/08/16 10:00 07/08/16 08:00 07/08/16 10:00 Intake and Output: 07/08/16 07/08/16 06:59 18:59 Intake Total 2971 1000 Output Total 1530 1755 Balance 1441 -755 - Medications Medications: Current Medications Hydralazine HCl (Apresoline) 10 mg IVP Q6 PRN PRN Reason: FOR SBP>170 & Diastolic>100 Vancomycin HCl (Vancomycin 1gm) 250 mls @ 167 mls/hr IVPB Q12H DONAL PRN Reason: Protocol Last Admin: 07/08/16 11:37 Dose: 167 mls/hr Meropenem 1g/NS 100mL IVPB (Meropenem 1g/Ns 100ml Ivpb) 100 mls @ 100 mls/hr IVPB Q8 DONAL PRN Reason: Protocol Stop: 07/21/16 14:01 Last Admin: 07/08/16 13:17 Dose: 100 mls/hr Heparin Sodium/Sodium Chloride (Heparin 34273 Units/250ml 1/2 Normal Saline) 250 mls @ 19.006 mls/hr IV .[id number] PRN; Protocol; 14.35 UNITS/KG/HR PRN Reason: ADJUST RATE PER PROTOCOL Last Titration: 07/08/16 07:14 Dose: 18.35 units/kg/hr Dextrose/Sodium Chloride (Dextrose 5%/0.9% Ns 1000 Ml) 1,000 mls @ 50 mls/hr IV .Q20H [facility] Metoprolol Tartrate (Lopressor) 25 mg PO BID [facility] Morphine Sulfate (Morphine) 2 mg IVP Q3H PRN PRN Reason: Pain, severe (8-10) Last Admin: 07/08/16 11:46 Dose: 2 mg Ondansetron HCl (Zofran Inj) 4 mg IVP Q8H PRN PRN Reason: Nausea/Vomiting Last Admin: 07/08/16 07:57 Dose: 4 mg Oxycodone/Acetaminophen (Percocet 5/325 Mg Tab) 1 tab PO Q4 PRN PRN Reason: Pain, Mild (1-3) Stop: 07/10/16 15:56 Last Admin: 07/08/16 05:07 Dose: 1 tab Pantoprazole Sodium (Protonix Inj) 40 mg IVP DAILY [facility] Last Admin: 07/08/16 09:06 Dose: 40 mg - Labs Labs: 07/08/16 05:30 07/08/16 05:30 PT 10.5 Seconds (9.9-11.8) 07/08/16 05:30 INR 0.97 (0.93-1.08) 07/08/16 05:30 APTT 44.0 Seconds (23.7-30.8) H 07/08/16 05:30
--- NOTE | 2016-07-08 14:23 | CP.PCM.CON ---
<Savannah Thornton - Last Filed: 07/08/16 17:44> History of Present Illness - History of Present Illness History of Present Illness: Gastroenterology Fellow/PGY4 Consult Note 51 year old male with history of polysubstance abuse (tobacco, alcohol, cocaine ) presenting with chest and back pain. Patient describes slow development of pain and weakness of right leg a week prior to ER presentation. [place] [facility] [place] He then developed sudden chest pain and low back pain on Thursday leading to ER presentation. He admits today to snorting cocaine on thursday as well. During inpatient stay he developed loss of sensation and movement of bilateral lower extremities with urinary incontinence POD1 (07/07 ) emergent decompressive laminectomy T2-4 after MRI showing concern for ventral epidural mass with abscess collection from T1-4 extending to L4 to L5 to with dorsal spinal cord compression. Subsequently, haque remains in place, continues to have and sensorya and motor deficit of bilateral lower extremities as well as lower half of abdominal wall. Today, he developed abdominal distension with CT A/P showing markedly dilated stomach without contrast extravasation to lower GI tract and fecal retention. Concern for ileus with NG to suction draining 1100cc of dark gastric output. On further questioning, he notes no bowel movement for two weeks and denies prior issues with constipation. He denies IV drug abuse, sick contacts, recent travel , recent trauma, bug bites, fever, chills, sweats, abdominal pain, diarrhea, hematochezia, hematemesis, melena, unintentional weight loss. No prior EGD or colonoscopy. Family-denies colon cancer, Mother-Diabetes Social-20 pack years, 2-3 24-ounce beers daily x 15 years, snorts cocaine, denies IVDA Surgery-none Review of Systems - Review of Systems Review of Systems: A 12-point review of systems negative except for as above Past Patient History - Past Social History Smoking Status: Heavy Smoker > 10 Cigarettes Daily Alcohol: < 2 Drinks/Day Drugs: Denies - CARDIAC Hx Cardiac Disorders: No - PULMONARY Hx Respiratory Disorders: No - MUSCULOSKELETAL/RHEUMATOLOGICAL Hx Falls: No - PSYCHIATRIC Hx Substance Use: No - SURGICAL HISTORY Hx Surgeries: No Meds Allergies/Adverse Reactions: Allergies Allergy/AdvReac Type Severity Reaction Status Date / Time No Known Allergies Allergy Verified 07/06/16 16:07 - Medications Medications: Current Medications Hydralazine HCl (Apresoline) 10 mg IVP Q6 PRN PRN Reason: FOR SBP>170 & Diastolic>100 Vancomycin HCl (Vancomycin 1gm) 250 mls @ 167 mls/hr IVPB Q12H DONAL PRN Reason: Protocol Last Admin: 07/08/16 11:37 Dose: 167 mls/hr Meropenem 1g/NS 100mL IVPB (Meropenem 1g/Ns 100ml Ivpb) 100 mls @ 100 mls/hr IVPB Q8 DONAL PRN Reason: Protocol Stop: 07/21/16 14:01 Last Admin: 07/08/16 13:17 Dose: 100 mls/hr Heparin Sodium/Sodium Chloride (Heparin 45520 Units/250ml 1/2 Normal Saline) 250 mls @ 19.006 mls/hr IV .[id number] PRN; Protocol; 14.35 UNITS/KG/HR PRN Reason: ADJUST RATE PER PROTOCOL Last Titration: 07/08/16 07:14 Dose: 18.35 units/kg/hr Dextrose/Sodium Chloride (Dextrose 5%/0.9% Ns 1000 Ml) 1,000 mls @ 50 mls/hr IV .Q20H [facility] Metoprolol Tartrate (Lopressor) 25 mg PO BID [facility] Morphine Sulfate (Morphine) 2 mg IVP Q3H PRN PRN Reason: Pain, severe (8-10) Last Admin: 07/08/16 11:46 Dose: 2 mg Ondansetron HCl (Zofran Inj) 4 mg IVP Q8H PRN PRN Reason: Nausea/Vomiting Last Admin: 07/08/16 07:57 Dose: 4 mg Oxycodone/Acetaminophen (Percocet 5/325 Mg Tab) 1 tab PO Q4 PRN PRN Reason: Pain, Mild (1-3) Stop: 07/10/16 15:56 Last Admin: 07/08/16 05:07 Dose: 1 tab Pantoprazole Sodium (Protonix Inj) 40 mg IVP DAILY [facility] Last Admin: 07/08/16 09:06 Dose: 40 mg Physical Exam - Constitutional Appears: Non-toxic, No Acute Distress - Head Exam Head Exam: ATRAUMATIC, NORMOCEPHALIC - Eye Exam Eye Exam: EOMI, PERRL Pupil Exam: PERRL. absent: Miosis, Mydriatic - ENT Exam ENT Exam: Mucous Membranes Moist, Normal Oropharynx Additional comments: NG in place R nares with 100cc of dark brown-black output in canister, dark green output in beginning of NG tubing - Neck Exam Neck exam: Positive for: Full Rom, Normal Inspection - Respiratory Exam Respiratory Exam: Decreased Breath Sounds, Rhonchi. absent: Clear to Auscultation Bilateral, Rales, Wheezes - Cardiovascular Exam Cardiovascular Exam: RRR, +S1, +S2. absent: Gallop, Rubs - GI/Abdominal Exam GI & Abdominal Exam: Distended, Firm, Hypoactive Bowel Sounds. absent: Guarding , Organomegaly, Rebound, Rigid, Tenderness Additional comments: loss of sensation to palpation of abdominal wall - Extremities Exam Extremities exam: Positive for: normal inspection. Negative for: full ROM Additional comments: 1+ B/L LE pitting edema - Neurological Exam Neurological exam: Alert, Motor Sensory Deficit, Oriented x3 Additional comments: loss of sensation and movement of bilateral lower extremities, sensory deficit of abdominal wall - Psychiatric Exam Psychiatric exam: Agitated, Normal Mood - Skin Skin Exam: Dry, Intact, Normal Color, Warm Results - Vital Signs Recent Vital Signs: Last Vital Signs Temp 97.5 F L 07/08/16 08:14 Pulse 79 07/08/16 10:00 Resp 29 H 07/08/16 10:00 BP 161/99 H 07/08/16 08:00 Pulse Ox 97 07/08/16 10:00 - Labs Result Diagrams: 07/08/16 05:30 07/08/16 05:30 Labs: Laboratory Results - last 24 hr 07/07/16 07/07/16 07/08/16 17:15 22:58 05:30 WBC 11.1 H RBC 3.82 Hgb 11.8 L Hct 34.6 L MCV 90.6 MCH 30.9 MCHC 34.1 RDW 13.4 Plt Count 225 MPV 11.3 H Gran % 78.9 H Lymph % (Auto) 10.6 L Hayes % (Auto) 10.1 H Eos % (Auto) 0.3 L Baso % (Auto) 0.1 Gran # 8.75 H Lymph # 1.2 Hayes # 1.1 H Eos # 0.0 Baso # 0.01 PT 10.5 INR 0.97 APTT 34.5 H 44.0 H Sodium 134 Potassium 4.2 Chloride 100 Carbon Dioxide 28 Anion Gap 10 BUN 30 H Creatinine 1.0 Est GFR ( Amer) > 60 Est GFR (Non-Af Amer) > 60 Random Glucose 120 H Calcium 8.3 L Total Bilirubin 0.5 AST 30 ALT 32 Alkaline Phosphatase 54 Total Creatine Kinase 536 H CK-MB (CK-2) 6.1 H CK-MB (CK-2) % 1.1 L Total Protein 7.0 Albumin 3.3 Globulin 3.6 Albumin/Globulin Ratio 0.9 L Urine Color Yellow Urine Appearance Clear Urine pH 5.5 Ur Specific [place] >= 1.030 Urine Protein 30 H Urine Glucose (UA) Negative Urine Ketones Negative Urine Blood Large H Urine Nitrate Negative Urine Bilirubin Small H Urine Urobilinogen 0.2 Ur Leukocyte Esterase Negative Urine RBC 2 - 5 Urine WBC 2 - 5 Ur Epithelial Cells 0 - 2 Urine Bacteria Small Coarse Granular Casts Trace H Urine Opiates Screen Positive H Urine Methadone Screen Negative Ur Barbiturates Screen Negative Ur Phencyclidine Scrn Negative Ur Amphetamines Screen Negative U Benzodiazepines Scrn Positive H U Oth Cocaine Metabols Positive H U Cannabinoids Screen Negative 07/08/16 13:28 WBC RBC Hgb Hct MCV MCH MCHC RDW Plt Count MPV Gran % Lymph % (Auto) Hayes % (Auto) Eos % (Auto) Baso % (Auto) Gran # Lymph # Hayes # Eos # Baso # PT INR APTT 48.8 H Sodium Potassium Chloride Carbon Dioxide Anion Gap BUN Creatinine Est GFR ( Amer) Est GFR (Non-Af Amer) Random Glucose Calcium Total Bilirubin AST ALT Alkaline Phosphatase Total Creatine Kinase CK-MB (CK-2) CK-MB (CK-2) % Total Protein Albumin Globulin Albumin/Globulin Ratio Urine Color Urine Appearance Urine pH Ur Specific [place] Urine Protein Urine Glucose (UA) Urine Ketones Urine Blood Urine Nitrate Urine Bilirubin Urine Urobilinogen Ur Leukocyte Esterase Urine RBC Urine WBC Ur Epithelial Cells Urine Bacteria Coarse Granular Casts Urine Opiates Screen Urine Methadone Screen Ur Barbiturates Screen Ur Phencyclidine Scrn Ur Amphetamines Screen U Benzodiazepines Scrn U Oth Cocaine Metabols U Cannabinoids Screen Assessment & Plan - Assessment and Plan (Free Text) Assessment: 51 year old male with history of polysubstance abuse (tobacco, alcohol, cocaine ) presenting with chest and back pain with progression to motor and sensory deficit of bilateral lower extremities with urinary incontinence. POD1 (07/07) emergent decompressive laminectomy T2-4 after MRI showing concern for ventral epidural mass with abscess collection from T1-4 extending to L4 to L5 to with dorsal spinal cord compression leading to paraplegic state with urinary incontinence. CT A/P showing markedly dilated stomach without contrast extravasation to lower GI tract and fecal retention. Last bowel movement two weeks ago. No prior EGD or colonoscopy. Plan: >DDx: neurogenic bowel dysfunction, ileus, gastric outlet obstruction >scheduled for EGD Thursday to rule out obstruction and evaluate for GI bleed >on heparin drip for RLE DVT >hold heparin drip at 0600 on Thursday morning (07/09) >monitor H/H >PPI BID >Hem/Onc managing- hypercoaguable state workup >s/p NG- 1100cc of dark gastric output >normocytic anemia, 400cc blood loss during laminectomy, coffee ground NG output >10% risk of upper GI bleed, appendicitis, cholecystitis, pancreatitis within first few months of spinal cord injury >high suspicion of neurogenic bowel dysfunction in setting of spinal cord injury >upper motor neuron presentation- above conus medullaris injury >clinical features: constipation, fecal retention >will benefit from oral bowel regimen/high fiber diet once gastric outlet obstruction ruled out to prevent fecal impaction and severe constipation >neurosurgery managing- recent laminectomy >cardiology managing-pending ECHO- evaluate LV function and for endocarditis >ID managing-on meropenem and vancomycin >wound culture- GPC, body fluid culture pending >blood culture- negative to date >further recommendations after EGD Thursday <Ld Moses - Last Filed: 07/08/16 17:49> Meds - Medications Medications: Current Medications Hydralazine HCl (Apresoline) 10 mg IVP Q6 PRN PRN Reason: FOR SBP>170 & Diastolic>100 Vancomycin HCl (Vancomycin 1gm) 250 mls @ 167 mls/hr IVPB Q12H DONAL PRN Reason: Protocol Last Admin: 07/08/16 11:37 Dose: 167 mls/hr Meropenem 1g/NS 100mL IVPB (Meropenem 1g/Ns 100ml Ivpb) 100 mls @ 100 mls/hr IVPB Q8 DONAL PRN Reason: Protocol Stop: 07/21/16 14:01 Last Admin: 07/08/16 13:17 Dose: 100 mls/hr Heparin Sodium/Sodium Chloride (Heparin 62949 Units/250ml 1/2 Normal Saline) 250 mls @ 19.006 mls/hr IV .[id number] PRN; Protocol; 14.35 UNITS/KG/HR PRN Reason: ADJUST RATE PER PROTOCOL Last Admin: 07/08/16 15:16 Dose: 26.953 mls/hr Dextrose/Sodium Chloride (Dextrose 5%/0.9% Ns 1000 Ml) 1,000 mls @ 50 mls/hr IV .Q20H [facility] Last Admin: 07/08/16 12:55 Dose: 50 mls/hr Metoprolol Tartrate (Lopressor) 25 mg PO BID [facility] Last Admin: 07/08/16 17:16 Dose: Not Given Morphine Sulfate (Morphine) 2 mg IVP Q3H PRN PRN Reason: Pain, severe (8-10) Last Admin: 07/08/16 15:52 Dose: 2 mg Ondansetron HCl (Zofran Inj) 4 mg IVP Q8H PRN PRN Reason: Nausea/Vomiting Last Admin: 07/08/16 07:57 Dose: 4 mg Oxycodone/Acetaminophen (Percocet 5/325 Mg Tab) 1 tab PO Q4 PRN PRN Reason: Pain, Mild (1-3) Stop: 07/10/16 15:56 Last Admin: 07/08/16 05:07 Dose: 1 tab Pantoprazole Sodium (Protonix Inj) 40 mg IVP Q12 [facility] Results - Vital Signs Recent Vital Signs: Last Vital Signs Temp 97.7 F 07/08/16 16:15 Pulse 73 07/08/16 17:00 Resp 21 07/08/16 17:00 BP 157/83 H 07/08/16 17:00 Pulse Ox 94 L 07/08/16 17:00 - Labs Result Diagrams: 07/08/16 05:30 07/08/16 05:30 Labs: Laboratory Results - last 24 hr 07/07/16 07/07/16 07/08/16 17:15 22:58 05:30 WBC 11.1 H RBC 3.82 Hgb 11.8 L Hct 34.6 L MCV 90.6 MCH 30.9 MCHC 34.1 RDW 13.4 Plt Count 225 MPV 11.3 H Gran % 78.9 H Lymph % (Auto) 10.6 L Hayes % (Auto) 10.1 H Eos % (Auto) 0.3 L Baso % (Auto) 0.1 Gran # 8.75 H Lymph # 1.2 Hayes # 1.1 H Eos # 0.0 Baso # 0.01 PT 10.5 INR 0.97 APTT 34.5 H 44.0 H Sodium 134 Potassium 4.2 Chloride 100 Carbon Dioxide 28 Anion Gap 10 BUN 30 H Creatinine 1.0 Est GFR ( Amer) > 60 Est GFR (Non-Af Amer) > 60 Random Glucose 120 H Calcium 8.3 L Total Bilirubin 0.5 AST 30 ALT 32 Alkaline Phosphatase 54 Total Creatine Kinase 536 H CK-MB (CK-2) 6.1 H CK-MB (CK-2) % 1.1 L Total Protein 7.0 Albumin 3.3 Globulin 3.6 Albumin/Globulin Ratio 0.9 L Urine Opiates Screen Positive H Urine Methadone Screen Negative Ur Barbiturates Screen Negative Ur Phencyclidine Scrn Negative Ur Amphetamines Screen Negative U Benzodiazepines Scrn Positive H U Oth Cocaine Metabols Positive H U Cannabinoids Screen Negative 07/08/16 13:28 WBC RBC Hgb Hct MCV MCH MCHC RDW Plt Count MPV Gran % Lymph % (Auto) Hayes % (Auto) Eos % (Auto) Baso % (Auto) Gran # Lymph # Hayes # Eos # Baso # PT INR APTT 48.8 H Sodium Potassium Chloride Carbon Dioxide Anion Gap BUN Creatinine Est GFR ( Amer) Est GFR (Non-Af Amer) Random Glucose Calcium Total Bilirubin AST ALT Alkaline Phosphatase Total Creatine Kinase CK-MB (CK-2) CK-MB (CK-2) % Total Protein Albumin Globulin Albumin/Globulin Ratio Urine Opiates Screen Urine Methadone Screen Ur Barbiturates Screen Ur Phencyclidine Scrn Ur Amphetamines Screen U Benzodiazepines Scrn U Oth Cocaine Metabols U Cannabinoids Screen Attending/Attestation - Attestation I have personally seen and examined this patient.: Yes I have fully participated in the care of the patient.: Yes I have reviewed all pertinent clinical information: Yes Notes (Text): 07/08/16 17:46 51 year old male with history of polysubstance abuse a/w chest and back pain, now s/p emergent decompressive laminectomy for epidural abscess. We are consulted for gastric distention, possibly neurogenic bowel dysfunction. 1. Gastric distention Plan: -NGT placed to LIS with > 1liter output -recommend high dose PPI IV -recommend EGD to r/o mechanical obstruction -hold heparin 6 hours pre op -if EGD in unremarkable, then will try to slowly advance diet -may need bowel regimen and/or prokinetic agents depending on clinical course
[2016-07-08] MEDS: Heparin25000 units/250ml 1/2NS 250 ML IV PRN (15:16)
--- NOTE | 2016-07-08 15:33 | CP.PCM.PN ---
<EdgardonisreenKeri - Last Filed: 07/08/16 15:30> Subjective - Date & Time of Evaluation Date of Evaluation: 07/08/16 Time of Evaluation: 15:30 - Subjective Subjective: HOSPITALIST PROGRESS NOTE Pt seen and examined at bedside. Pt is s/p lamenectomy at T2-T4 level POD #1. Patient is awake and oriented x3. Patient is still unable to move his lower extremities or feel any sensation. Patient denies having any CP, SOB, abd pain , N/V/D/C. Objective - Vital Signs/Intake and Output Vital Signs (last 24 hours): Temp Pulse Resp BP Pulse Ox 97.5 F L 79 29 H 161/99 H 97 07/08/16 08:14 07/08/16 10:00 07/08/16 10:00 07/08/16 08:00 07/08/16 10:00 Intake and Output: 07/08/16 07/08/16 06:59 18:59 Intake Total 2971 1000 Output Total 1530 1780 Balance 1441 -780 - Medications Medications: Current Medications Hydralazine HCl (Apresoline) 10 mg IVP Q6 PRN PRN Reason: FOR SBP>170 & Diastolic>100 Vancomycin HCl (Vancomycin 1gm) 250 mls @ 167 mls/hr IVPB Q12H DONAL PRN Reason: Protocol Last Admin: 07/08/16 11:37 Dose: 167 mls/hr Meropenem 1g/NS 100mL IVPB (Meropenem 1g/Ns 100ml Ivpb) 100 mls @ 100 mls/hr IVPB Q8 DONAL PRN Reason: Protocol Stop: 07/21/16 14:01 Last Admin: 07/08/16 13:17 Dose: 100 mls/hr Heparin Sodium/Sodium Chloride (Heparin 80679 Units/250ml 1/2 Normal Saline) 250 mls @ 19.006 mls/hr IV .[id number] PRN; Protocol; 14.35 UNITS/KG/HR PRN Reason: ADJUST RATE PER PROTOCOL Last Admin: 07/08/16 15:16 Dose: 26.953 mls/hr Dextrose/Sodium Chloride (Dextrose 5%/0.9% Ns 1000 Ml) 1,000 mls @ 50 mls/hr IV .Q20H DONAL Last Admin: 07/08/16 12:55 Dose: 50 mls/hr Metoprolol Tartrate (Lopressor) 25 mg PO BID [facility] Morphine Sulfate (Morphine) 2 mg IVP Q3H PRN PRN Reason: Pain, severe (8-10) Last Admin: 07/08/16 11:46 Dose: 2 mg Ondansetron HCl (Zofran Inj) 4 mg IVP Q8H PRN PRN Reason: Nausea/Vomiting Last Admin: 07/08/16 07:57 Dose: 4 mg Oxycodone/Acetaminophen (Percocet 5/325 Mg Tab) 1 tab PO Q4 PRN PRN Reason: Pain, Mild (1-3) Stop: 07/10/16 15:56 Last Admin: 07/08/16 05:07 Dose: 1 tab Pantoprazole Sodium (Protonix Inj) 40 mg IVP Q12 DONAL - Labs Labs: 07/08/16 05:30 07/08/16 05:30 PT 10.5 Seconds (9.9-11.8) 07/08/16 05:30 INR 0.97 (0.93-1.08) 07/08/16 05:30 APTT 48.8 Seconds (23.7-30.8) H 07/08/16 13:28 - Constitutional Appears: Non-toxic, No Acute Distress - Head Exam Head Exam: ATRAUMATIC - ENT Exam ENT Exam: Mucous Membranes Moist - Respiratory Exam Respiratory Exam: Rhonchi. absent: Accessory Muscle Use, Respiratory Distress - Cardiovascular Exam Cardiovascular Exam: REGULAR RHYTHM, +S1, +S2. absent: Gallop, Rubs, Murmur - GI/Abdominal Exam GI & Abdominal Exam: Distended, Soft, Normal Bowel Sounds. absent: Firm, Rigid , Tenderness - Extremities Exam Extremities Exam: absent: Calf Tenderness, Pedal Edema - Neurological Exam Neurological Exam: Alert, Awake, Oriented x3 Additional comments: patient does not have sensation from about mid abdomen and below - Psychiatric Exam Psychiatric exam: Normal Affect, Normal Mood - Skin Skin Exam: Dry, Intact, Normal Color, Warm Assessment and Plan - Assessment and Plan (Free Text) Assessment: Assessment: 51 year old male with no significant past medical history is s/p T2-T4 lamenectomy POD #1 US of LE showed R LE DVT. Lumbar CT showed disc bulging from L3-S1 with foraminal stenosis. STAT Plan: 1. Lamenectomy T2-T4 POD #1 - Wound cultures grew gram + cocci. Second culture is pending. -MRI c/ and w/o contrast on 07/07 showed fluid collection in ventral epidural space from T1-T5 with cord compression and obliteration of subarachinoid space; abnormal signal in T3&T4 which may represent osteomyelitis vs. metastatic dz; no disc herniation, spinal canal stenosis or neuroforaminal narrowing. Lumbar spine MRI was negative for cauda equina. Please see full reports for details. - ID, Dr. Solitario is consulted. Abx per ID rec. Currently on meropenem and Vanco - CT of chest/abd/pelvis is negative for malignancy 2. R LE DVT -Pt is on heparin drip and closely monitored for bleeding at surgical site (via drain output). Monitoring closely for bleeding - Hypercoag workup ordered - Heme consult, Dr. Warren requested. Awaiting recs 3. CP R/O ACS - Cardio is consulted - Echo results are pending - Hgb A1c is 6.3 4. neurogenic bowel dysfunction vs. ileus - GI is consulted. Appreciate recs - Pt has NG tube in place 5. Prophylaxis - Protonix - heparin drip Case discussed with attending, Dr. Tutu Marc <Tutu Marc - Last Filed: 07/08/16 17:57> Objective - Vital Signs/Intake and Output Vital Signs (last 24 hours): Temp Pulse Resp BP Pulse Ox 97.7 F 73 21 157/83 H 94 L 07/08/16 16:15 07/08/16 17:00 07/08/16 17:00 07/08/16 17:00 07/08/16 17:00 Intake and Output: 07/08/16 07/08/16 06:59 18:59 Intake Total 2971 1000 Output Total 1530 1835 Balance 1441 -835 - Medications Medications: Current Medications Hydralazine HCl (Apresoline) 10 mg IVP Q6 PRN PRN Reason: FOR SBP>170 & Diastolic>100 Vancomycin HCl (Vancomycin 1gm) 250 mls @ 167 mls/hr IVPB Q12H DONAL PRN Reason: Protocol Last Admin: 07/08/16 11:37 Dose: 167 mls/hr Meropenem 1g/NS 100mL IVPB (Meropenem 1g/Ns 100ml Ivpb) 100 mls @ 100 mls/hr IVPB Q8 DONAL PRN Reason: Protocol Stop: 07/21/16 14:01 Last Admin: 07/08/16 13:17 Dose: 100 mls/hr Heparin Sodium/Sodium Chloride (Heparin 82768 Units/250ml 1/2 Normal Saline) 250 mls @ 19.006 mls/hr IV .[id number] PRN; Protocol; 14.35 UNITS/KG/HR PRN Reason: ADJUST RATE PER PROTOCOL Last Admin: 07/08/16 15:16 Dose: 26.953 mls/hr Dextrose/Sodium Chloride (Dextrose 5%/0.9% Ns 1000 Ml) 1,000 mls @ 50 mls/hr IV .Q20H [facility] Last Admin: 07/08/16 12:55 Dose: 50 mls/hr Metoprolol Tartrate (Lopressor) 25 mg PO BID [facility] Last Admin: 07/08/16 17:16 Dose: Not Given Morphine Sulfate (Morphine) 2 mg IVP Q3H PRN PRN Reason: Pain, severe (8-10) Last Admin: 07/08/16 15:52 Dose: 2 mg Ondansetron HCl (Zofran Inj) 4 mg IVP Q8H PRN PRN Reason: Nausea/Vomiting Last Admin: 07/08/16 07:57 Dose: 4 mg Oxycodone/Acetaminophen (Percocet 5/325 Mg Tab) 1 tab PO Q4 PRN PRN Reason: Pain, Mild (1-3) Stop: 07/10/16 15:56 Last Admin: 07/08/16 05:07 Dose: 1 tab Pantoprazole Sodium (Protonix Inj) 40 mg IVP Q12 [facility] - Labs Labs: 07/08/16 05:30 07/08/16 05:30 PT 10.5 Seconds (9.9-11.8) 07/08/16 05:30 INR 0.97 (0.93-1.08) 07/08/16 05:30 APTT 48.8 Seconds (23.7-30.8) H 07/08/16 13:28 Attending/Attestation - Attestation I have personally seen and examined this patient.: Yes I have fully participated in the care of the patient.: Yes I have reviewed all pertinent clinical information, including history, physical exam and plan: Yes Notes (Text): I have seen and examined patient at bedside. This is 51 year old male with history of substance abuse (snorts cocaine), tobacco, alcohol use who got admitted for evaluation of back pain and found to have epidural abscess T1-T5, urinary retention, acute RLE DVT. He underwent emergent laminectomy and epidural abscess was drained. Today patient is still not able to have any sensation or have any movement past xiphisternum. Patient is very anxious about the prognosis. He is on meropenem and vancomycin. Abscess Cultures are growing gram positive cocci. Blood cultures are negative. HIV is negative. Procal is 0.12. He remains on IV heparin for acute DVT. Hypercoagulable work up sent. CT chest, abdomen and pelvis negative. As per heme onc, he needs anticoagulation for atleast 6 months. He has haque catheter. Urology consult pending. Cardiology consult appreciated. Echo pending. GI consult appreciated regarding gastric distention which was thought to be most likely related to neurogenic bowel dysfunction. Plan for EGD tomorrow. Dr Tutu Marc
[2016-07-08 20:17] LABS: HEMOGLOBIN 11.5 gm/dL (14.0-18.0); MEAN CELL VOLUME 90.8 fL (80.0-105.0); MEAN CORPUSCULAR HGB CONC 34.1 g/dl (31.0-37.0); MEAN PLATELET VOLUME 11.4 fl (7.0-11.0); RBC 3.71 10^6/uL (3.5-6.1); RED CELL DISTRIBUTION WIDTH 13.4 % (11.5-14.5); WHITE BLOOD COUNT 9.4 10^3/ul (4.5-11.0)
[2016-07-09] MEDS: Heparin25000 units/250ml 1/2NS 250 ML IV PRN ×2 (02:15→23:23)
[2016-07-09] MEDS: Morphine 2 mg/ml ISec IVP PRN ×2 (02:55→06:54)
[2016-07-09] MEDS ORDERED: Morphine 2 mg/ml ISec IVP STA (04:10)
[2016-07-09] MEDS: Meropenem 1g/NS 100mL IVPB 100 ML IVPB SCH ×3 (05:48→22:38)
[2016-07-09 06:02] LABS: BASO # 0.01 K/mm3 (0.0-2.0); BASO % 0.1 % (0.0-3.0); EOS % 0.3 % (1.5-5.0); GRAN # 6.64 (1.4-6.5); GRAN % 72.3 % (50.0-68.0); HEMOGLOBIN 11.2 gm/dL (14.0-18.0); LYMPH # 1.5 (1.2-3.4); LYMPH % 16.6 % (22.0-35.0); MEAN CELL VOLUME 91.8 fL (80.0-105.0); MEAN CORPUSCULAR HEMOGLOBIN 30.7 pg (25.0-35.0); MEAN CORPUSCULAR HGB CONC 33.4 g/dl (31.0-37.0); MEAN PLATELET VOLUME 11.6 fl (7.0-11.0); MONO % 10.7 % (1.0-6.0); PLATELET COUNT 220 10^3/uL (120.0-450.0); RBC 3.65 10^6/uL (3.5-6.1); RED CELL DISTRIBUTION WIDTH 13.5 % (11.5-14.5); WHITE BLOOD COUNT 9.2 10^3/ul (4.5-11.0)
[2016-07-09 06:13] LABS: INR 0.97 (0.93-1.08); PARTIAL THROMBOPLASTIN TIME 42.6 Seconds (23.7-30.8); PROTHROMBIN TIME 10.5 Seconds (9.9-11.8)
[2016-07-09 06:16] LABS: ALB/GLOB RATIO 0.9 (1.1-1.8); ALBUMIN 3.3 g/dL (3.0-4.8); ALT/SGPT 34 U/L (7-56); AST/SGOT 39 U/L (15-59); BLOOD UREA NITROGEN 23 mg/dL (7-21); CALCIUM 8.5 mg/dL (8.4-10.5); GFR AFRICAN-AMERICAN > 60; GFR NON-AFRICAN AMERICAN > 60
[2016-07-09] MEDS ORDERED: Morphine 4 mg/ml ISec IVP STA (07:17)
[2016-07-09] MEDS ORDERED: Morphine 2 mg/ml ISec IVP PRN (07:18)
--- NOTE | 2016-07-09 08:04 | PN ---
DATE: 07/08/2016 CHIEF COMPLAINT: Follow up for status post laminectomy of T2-T4, status post decompression with bila teral lower extremity weakness. SUBJECTIVE: This is a 51-year-old man with past medical history of polysubstance abuse, tobacco, alc ohol, cocaine, presented with chest pain and chronic back pain described as slow development of pain and weakness of the right leg. A week prior to ER presentation, he left AMA from [facility], had sudden onset of chest pain and low back pain leading to loss of sensation and movement of jodi ateral lower extremities and urinary incontinence and is found to have a ventral epidural mass with a bscess collection from T1-T4 extending to L4-L5 with dorsal spinal cord compression, status post debra gent decompressive laminectomy of T2-T4. Currently, he is not moving much of the lower extremities. He has patchy areas in the distribution of feeling pinprick but otherwise no limited movement. He c urrently on CT abdomen and pelvis showing markedly dilated stomach without conscious extravasati on of lower GI tract and fecal retention is concerning for ileus with to suction the drain of 1100 mL of gastric output. He follows commands. Neurosurgery note evaluated and appreciate d and mentioned that to continue with postop care and given that his prognosis is not as good as he h as not regained any function thus postop discussed with the family. PAST MEDICAL HISTORY: History of polysubstance abuse, tobacco, alcohol, cocaine. FAMILY HISTORY: Noncontributory. SOCIAL HISTORY: Smokes, a smoker of 20 packs per year, 24 ounce beers daily for 15 years, snorts joi vicki, denies IV drug abuse. PAST SURGICAL HISTORY: Just recent decompressive laminectomy. REVIEW OF SYSTEMS: A 14-point review of systems is negative except for the HPI. ALLERGIES: No known drug allergies. MEDICATIONS: Reviewed via nurse reconciliation sheet. PHYSICAL EXAMINATION: VITAL SIGNS: Temperature is 97.7, pulse rate 79, blood pressure of 161/99, respiratory rate 19, oxyg en 20, 95% on room air. GENERAL: The patient is sitting up in bed in no acute distress. HEENT: Atraumatic, normocephalic. PERRLA. Extraocular muscles intact. NECK: Supple, no JVD, no adenopathy noted. LUNGS: Decreased breath sounds bilaterally. ABDOMEN: Distended with firm active bowel sounds. Has an NJ tube in place draining dark liquid . Loss of sensation of palpation of the abdominal wall on pinprick. EXTREMITIES: 1+ bilateral pitting edema. Peripheral pulses 2+ felt bilaterally. NEUROLOGIC: The patient is alert, oriented to person, place, month and year. Speech is fluent, with out any errors. Cranial nerves II through XII intact. EXTREMITIES: Upper extremity strength is 5/5 in both upper extremities. Lower extremities: Minimal movement in the lower extremities. He has decreased sensation to pinprick and light touch in bilate ral lower extremities with patchy distribution on the left lateral aspect of the left leg and decreas ed sensation from essentially level of T4. Toes are upgoing bilaterally. SENSORY: Decreased light touch and pinprick up to the T4 level as well as mild patchy distribu tion of pinprick in the left lateral aspect of the leg. COORDINATION: [id number] intact. GAIT: Deferred for now. DEEP TENDON REFLEXES: 2+ throughout and 1 at the ankles. LABORATORIES: Sodium 134, potassium 4.2, chloride 100, carbon dioxide of 28, BUN of 30, creatinine 1 , random glucose of 120. ASSESSMENT AND PLAN: This is a 51-year-old man with past medical history of polysubstance abuse, tob acco, alcohol, cocaine, presented with chest and back pain with progression to motor and sensory defi cit of the bilateral lower extremities with urinary incontinence and found to have a ventral epidural mass with abscess collection from T1-T4 extending to L4-L5 with dorsal spinal cord compression, lead ing to a paraplegic state with urinary incontinence status post emergent decompressive laminectomy T2 -T4 postop day #1 and no movement of the lower extremities and no sensory feel except for mild patchy distribution of the left thigh to pinprick. CT abdomen and pelvis showed markedly distended stomach without contrast, extravasation of the lower gastrointestinal tract and fecal retention. His last b owel movement was 2 weeks ago and he is currently having an NJ tube, likely concerning for neurogenic bowel dysfunction, gastric outlet obstruction. GI is on board, possible EGD is scheduled for Thursday. He is on heparin for DVTs and is undergoing hypercoagulable state by oncology. At this t belinda, he has regained full function of his lower extremity weakness from T1-T4 extending to L4-L5 epid ural mass with abscess collection, status post decompression and since he is postop with minima l sensory and motor movement likely prognosis seems very poor. Will take at least up to a year to re gain meaningful function, will need acute rehabilitation. At this time, follow up with neurosurgical recommendations. We will follow from the periphery but just more of a neurosurgical follow up. Ple ase reconsult if necessary. Mart Koch MD cc: [id number] TT: 07/08/2016 17:50:05 Confirmation # [id number] Dictation # [id number] cn 07/08/2016 17:15:20
--- NOTE | 2016-07-09 08:29 | CP.CCUPN ---
<Uzma Abbott - Last Filed: 07/09/16 14:30> CCU Subjective - Physician Review Subjective (Free Text): 07/09/16 08:28 Increased pain regimen ROSELYN output - 20cc sanguinous overnight. ROSELYN was pulled Mackenzie output - 1000cc overnight NG output - 190 black overnight CCU Objective - Vital Signs / Intake & Output Vital Signs (Last 4 hours): Vital Signs Temp 07/09/16 07:35 98.2 F Intake and Output (Last 8hrs): Intake & Output 07/08/16 07/09/16 07/09/16 22:59 06:59 14:59 Intake Total 512 1050 Output Total 55 1210 Balance 457 -160 Weight 293 lb Intake: IV 600 Right Hand 600 Other 512 450 Output: Drainage 5 210 Left Back 20 Right Nare 5 190 Urine 50 1000 Urethral (Mackenzie) 50 1000 Other: Voiding Method Indwelling Catheter - Physical Exam Head: Positive for: Atraumatic, Normocephalic Pupils: Positive for: PERRL Extroacular Muscles: Positive for: EOMI Conjunctiva: Positive for: Normal Mouth: Positive for: Moist Mucous Membranes, Other (NGT in place) Neck: Positive for: Trachea Midline. Negative for: Meningeal Signs Respiratory/Chest: Positive for: Clear to Auscultation, Other (Course bronchial sounds, improved after coughing). Negative for: Respiratory Distress, Accessory Muscle Use, Rales, Retracting, Rhonchi Cardiovascular: Positive for: Regular Rate and Rhythm, Normal S1, S2. Negative for: Murmurs Abdomen: Positive for: Distention, Other (obese, No sensation of T5-T6 and down) . Negative for: Tenderness, Normal Bowel Sounds (hypoactive ), Peritoneal Signs Back: Positive for: Midline Tenderness (thorarci surgical site, 20cc sanguouns overnight). Negative for: Pain with Leg Raise Upper Extremity: Positive for: Normal Inspection. Negative for: Cyanosis, Edema Lower Extremity: Positive for: Edema, NORMAL PULSES, Other (No sensory and motor ) Neurological: Positive for: GCS=15, CN II-XII Intact, Speech Normal Skin: Positive for: Warm, Dry, Normal Color. Negative for: Rashes Psychiatric: Positive for: Alert, Oriented x 3, Normal Insight, Normal Concentration - Medications Active Medications: Active Medications Generic Name Dose Route Start Last Admin Trade Name Freq PRN Reason Stop Dose Admin Hydralazine HCl 10 mg 07/07/16 17:14 Apresoline IVP Q6 PRN FOR SBP>170 & Diastolic>100 Vancomycin HCl 250 mls @ 167 mls/hr 07/07/16 12:00 07/09/16 00:00 Vancomycin 1gm IVPB 167 mls/hr Q12H DONAL Administration Protocol Meropenem 1g/NS 100mL IVPB 100 mls @ 100 mls/hr 07/07/16 14:00 07/09/16 05:48 Meropenem 1g/Ns 100ml Ivpb IVPB 07/21/16 14:01 100 mls/hr Q8 DONAL Administration Protocol Heparin Sodium/Sodium Chloride 250 mls @ 19.006 mls/hr 07/07/16 18:20 07/09/16 02:15 Heparin 72004 Units/250ml 1/2 Normal Saline IV 26.953 mls/hr .[id number] PRN Administration ADJUST RATE PER PROTOCOL Protocol 14.35 UNITS/KG/HR Dextrose/Sodium Chloride 1,000 mls @ 50 mls/hr 07/08/16 12:51 07/08/16 12:55 Dextrose 5%/0.9% Ns 1000 Ml IV 50 mls/hr .Q20H DONAL Administration Metoprolol Tartrate 25 mg 07/08/16 11:25 07/08/16 17:16 Lopressor PO Not Given BID DONAL Morphine Sulfate 2 mg 07/09/16 07:18 Morphine IVP Q3H PRN Pain, moderate (4-7) Morphine Sulfate 4 mg 07/09/16 07:18 Morphine IV Q3H PRN Pain, severe (8-10) Ondansetron HCl 4 mg 07/08/16 07:30 07/08/16 07:57 Zofran Inj IVP 4 mg Q8H PRN Administration Nausea/Vomiting Oxycodone/Acetaminophen 1 tab 07/07/16 15:55 07/08/16 05:07 Percocet 5/325 Mg Tab PO 07/10/16 15:56 1 tab Q4 PRN Administration Pain, Mild (1-3) Pantoprazole Sodium 40 mg 07/08/16 22:00 07/08/16 21:37 Protonix Inj IVP 40 mg Q12 DONAL Administration - Patient Studies Lab Studies: Microbiology Studies 07/07/16 15:25 Gram Stain - Final Other: Please Indicate Wound Culture - Preliminary Gram Positive Cocci Lab Studies 07/09/16 07/08/16 07/08/16 Range/Units 05:40 20:10 13:28 WBC 9.2 9.4 (4.5-11.0) 10^3/ul RBC 3.65 3.71 (3.5-6.1) 10^6/uL Hgb 11.2 L 11.5 L (14.0-18.0) gm/dL Hct 33.5 L 33.7 L (42.0-52.0) % MCV 91.8 90.8 (80.0-105.0) fL MCH 30.7 31.0 (25.0-35.0) pg MCHC 33.4 34.1 (31.0-37.0) g/dl RDW 13.5 13.4 (11.5-14.5) % Plt Count 220 217 (120.0-450.0) 10^3/uL MPV 11.6 H 11.4 H (7.0-11.0) fl Gran % 72.3 H (50.0-68.0) % Lymph % (Auto) 16.6 L (22.0-35.0) % [place] % (Auto) 10.7 H (1.0-6.0) % Eos % (Auto) 0.3 L (1.5-5.0) % Baso % (Auto) 0.1 (0.0-3.0) % Gran # 6.64 H (1.4-6.5) Lymph # 1.5 (1.2-3.4) [place] # 1.0 H (0.1-0.6) Eos # 0.0 (0.0-0.7) Baso # 0.01 (0.0-2.0) K/mm3 PT 10.5 (9.9-11.8) Seconds INR 0.97 (0.93-1.08) APTT 42.6 H 58.5 H 48.8 H (23.7-30.8) Seconds Sodium 136 (132-148) mmol/L Potassium 4.1 (3.6-5.0) mmol/L Chloride 102 (98-107) mmol/L Carbon Dioxide 29 (21-33) mmol/L Anion Gap 9 L (10-20) BUN 23 H (7-21) mg/dL Creatinine 0.8 (0.5-1.4) mg/dL Est GFR ( Amer) > 60 Est GFR (Non-Af Amer) > 60 Random Glucose 114 H (70-110) mg/dL Calcium 8.5 (8.4-10.5) mg/dL Total Bilirubin 0.4 (0.2-1.3) mg/dL AST 39 (15-59) U/L ALT 34 (7-56) U/L Alkaline Phosphatase 53 (38-133) U/L Total Protein 6.8 (5.8-8.3) g/dL Albumin 3.3 (3.0-4.8) g/dL Globulin 3.5 gm/dL Albumin/Globulin Ratio 0.9 L (1.1-1.8) Laboratory Results - last 24 hr 07/08/16 07/08/16 07/09/16 13:28 20:10 05:40 WBC 9.4 9.2 RBC 3.71 3.65 Hgb 11.5 L 11.2 L Hct 33.7 L 33.5 L MCV 90.8 91.8 MCH 31.0 30.7 MCHC 34.1 33.4 RDW 13.4 13.5 Plt Count 217 220 MPV 11.4 H 11.6 H Gran % 72.3 H Lymph % (Auto) 16.6 L [place] % (Auto) 10.7 H Eos % (Auto) 0.3 L Baso % (Auto) 0.1 Gran # 6.64 H Lymph # 1.5 [place] # 1.0 H Eos # 0.0 Baso # 0.01 PT 10.5 INR 0.97 APTT 48.8 H 58.5 H 42.6 H Sodium 136 Potassium 4.1 Chloride 102 Carbon Dioxide 29 Anion Gap 9 L BUN 23 H Creatinine 0.8 Est GFR ( Amer) > 60 Est GFR (Non-Af Amer) > 60 Random Glucose 114 H Calcium 8.5 Total Bilirubin 0.4 AST 39 ALT 34 Alkaline Phosphatase 53 Total Protein 6.8 Albumin 3.3 Globulin 3.5 Albumin/Globulin Ratio 0.9 L Critical Care Progress Note - Nutrition Nutrition: Nutrition Category Date Time Status NPO Diet [DIET] Diets 07/09/16 Breakfast Ordered Assessment/Plan - Assessment and Plan (Free Text) Plan: 51 years old obese male, with hx of polysubstance abuse (long-time smoker, 20pack-yr, alcohol abuse-3 cans a day, snorting cocaine user), has (1) R Leg DVT , (2) lower extremity hemiparesis, and (3) spinal cord compression s/p emergent decompressive laminectomy T2-T4. He was started with RLE weakness 1 week ago. Pt last snorted cocaine thursday after [place] [facility] [place] Hemiparesis is due to cord compression vs spinal infarct from cocaine use. He loses sensation from T5. Cord compression is due to anterior epidural mass got infected vs abscess. Purulent pus in Spinal code cultured G(+) cocci, suggestive of osteomyelitis and/or diskitis. He is on vancomycine and meropenum. CT c/a/p showed dilated stomach without contrast extravastion to lower GI and fecal retention. Pt developed gastric distention, possibly neurogenic bowel dysfunction vs mechanical obstruction vs ileus. Pt has No bowel movement x 2 weeks, due to constipation vs fecal retention. He has neurogenic bladder dysfunction. He was found to have R LE DVT. CK 313, old bruises on gluteal region b/l. He was found (+) cocaine. Pt denied trauma or prolonged laying. CTA at [facility] [place] showed no PE, no aortic dissection. Work up on DVT is undergoing, provoked vs unprovoked, malignancy vs inheritary vs immunogenic/connective tissue disease. He is on Lovenox therapeutic dose while bridging coumadin. Held during procedure. Resume heparin drip immediately s/p surgery. Coumadin still on hold. Neuro - s/p emergent decompression laminectomy, T2-T4, POD #2 - ROSELYN pulled - morphine 4q3 PRN, 2q3 PRN, oxycodone 1q4 PRN - Will follow up with radiologist re: possible spinal infarct. MRI resolution or acute timing may be limiting factors for detection. - Neurock q1 - Aggressive PT/OT - Psych consult for plan for therapist/counseling Cardio - QTc 544 (465 2 days ago) - Atypical chest pain radiating from spinal abscess - hydralazine 10q6 PRN - Echocardiogram pending official read - Hb 11.2 (11.8), BUN 23 (30) Pulm - bipap HS 01/01/35 titrate to above 95% - inspiration spirometry 10 every hour GI - NGT, NPO - During first few months of spinal cord injury, 10% risk of upper GI bleed, appendicitis, cholecysticis, pancreatitis. - NG suction > 1 dark gastric output then 190cc overnight - PPI IV q12 - EGD to r/o mechanical obstruction. If EGD unremarkable, slowly advance diet - EGD result pending - May need bowel regimen and/or short-term prokinetics agent depending on clinical course. Consider Miralax. - Goal of feeding: GI Recommends small frequent meal of regular consistency. Not a candidate for PEG tube. Nephro - on Mackenzie. U/O adequate Endo - A1C 6.3 - maintain euglycemic Heme - ForR LE DVT, heparin on hold. heparin drip based ht and age (ideal body wt), goal PTT 45-55. Primary team plans to transit to lovenox BID bridging coumadin - Hypercoagulable workup - pending Antithrombin III activity, factor V mutation , Lupus anticoags, protein C/S activity - Normocytic anemia, 400 cc blood loss during laminectomy, coffee-ground NG output Infectious - No fever/No leukocytosis - Meropenem, vancomycin. Vanco trough is low today - Epidural abscess; Pus and surrounding fluid grows streptococcus Pneumonia. Vanco sensitive. No anaerobes. - No grown blood culture x 48 hrs - Echocardiogram (TTE) to r/o endocarditis Pending official read - CT chest/Abd/Pelvis with PO and IV contrast unremarkable for cancer, paraneoplastic, or hidden abscess - HIV, Hepatitis panel negative - skin care and reposition regularly Prophylaxis - Heparin drip - held for EGD - Protonix high dose Prognosis - Per Neurosurgery: Prognosis, not good as pt not regaining any function thus far post-op. Recovery outcome may vary per individual. Individual nerve regeneration may take 12-18 months. Disposition - Likely need long-term rehab and care. scruff worker Neda on board. - POA choice tomorrow - Daily dressing changes S/R/D/w Dr. Audelia Marc - Date & Time Date: 07/09/16 Time: 07:28 <Tari GUTIERREZ,Cecy H - Last Filed: 07/09/16 16:07> CCU Objective - Vital Signs / Intake & Output Vital Signs (Last 4 hours): Vital Signs Temp Pulse Resp BP Pulse Ox 07/09/16 14:00 68 24 150/83 93 L 07/09/16 13:30 69 17 145/71 96 07/09/16 13:00 68 17 134/66 94 L 07/09/16 12:51 67 19 94 L 07/09/16 12:31 69 19 157/86 H 95 07/09/16 12:15 98.4 F 07/09/16 12:00 74 27 H 130/68 97 Intake and Output (Last 8hrs): Intake & Output 07/09/16 07/09/16 07/09/16 06:59 14:59 22:59 Intake Total 1050 Output Total 1210 Balance -160 Weight 293 lb Intake: IV 600 Right Hand 600 Other 450 Output: Drainage 210 Left Back 20 Right Nare 190 Urine 1000 Urethral (Mackenzie) 1000 - Medications Active Medications: Active Medications Generic Name Dose Route Start Last Admin Trade Name Freq PRN Reason Stop Dose Admin Bacitracin 1 ea 07/09/16 10:00 Bacitracin TOP DAILY DONAL Hydralazine HCl 10 mg 07/07/16 17:14 Apresoline IVP Q6 PRN FOR SBP>170 & Diastolic>100 Meropenem 1g/NS 100mL IVPB 100 mls @ 100 mls/hr 07/07/16 14:00 07/09/16 13:31 Meropenem 1g/Ns 100ml Ivpb IVPB 07/21/16 14:01 100 mls/hr Q8 DONAL Administration Protocol Heparin Sodium/Sodium Chloride 250 mls @ 19.006 mls/hr 07/07/16 18:20 07/09/16 02:15 Heparin 53247 Units/250ml 1/2 Normal Saline IV 26.953 mls/hr .[id number] PRN Administration ADJUST RATE PER PROTOCOL Protocol 14.35 UNITS/KG/HR Dextrose/Sodium Chloride 1,000 mls @ 50 mls/hr 07/08/16 12:51 07/08/16 12:55 Dextrose 5%/0.9% Ns 1000 Ml IV 50 mls/hr .Q20H DONAL Administration Daptomycin 800 mg/ Sodium 100 mls @ 200 mls/hr 07/09/16 16:00 Chloride IV 08/06/16 16:01 Q24H [facility] Protocol Metoprolol Tartrate 25 mg 07/08/16 11:25 07/09/16 11:30 Lopressor PO Not Given BID [facility] Morphine Sulfate 2 mg 07/09/16 07:18 Morphine IVP Q3H PRN Pain, moderate (4-7) Morphine Sulfate 4 mg 07/09/16 07:18 07/09/16 10:33 Morphine IV 4 mg Q3H PRN Administration Pain, severe (8-10) Ondansetron HCl 4 mg 07/08/16 07:30 07/08/16 07:57 Zofran Inj IVP 4 mg Q8H PRN Administration Nausea/Vomiting Oxycodone/Acetaminophen 1 tab 07/07/16 15:55 07/08/16 05:07 Percocet 5/325 Mg Tab PO 07/10/16 15:56 1 tab Q4 PRN Administration Pain, Mild (1-3) Pantoprazole Sodium 40 mg 07/08/16 22:00 07/09/16 09:01 Protonix Inj IVP 40 mg Q12 DONAL Administration - Patient Studies Lab Studies: Microbiology Studies 07/07/16 15:25 Gram Stain - Final Other: Please Indicate Anaerobic Culture - Final NO ANAEROBES ISOLATED. Wound Culture - Preliminary Streptococcus Pneumoniae 07/07/16 15:25 Gram Stain - Final Other: Please Indicate Body Fluid Culture - Preliminary Streptococcus Pneumoniae 07/07/16 17:10 MRSA Culture (Admit) - Final Nose MRSA NOT DETECTED Lab Studies 07/09/16 07/09/16 07/08/16 Range/Units 10:55 05:40 20:10 WBC 9.2 9.4 (4.5-11.0) 10^3/ul RBC 3.65 3.71 (3.5-6.1) 10^6/uL Hgb 11.2 L 11.5 L (14.0-18.0) gm/dL Hct 33.5 L 33.7 L (42.0-52.0) % MCV 91.8 90.8 (80.0-105.0) fL MCH 30.7 31.0 (25.0-35.0) pg MCHC 33.4 34.1 (31.0-37.0) g/dl RDW 13.5 13.4 (11.5-14.5) % Plt Count 220 217 (120.0-450.0) 10^3/uL MPV 11.6 H 11.4 H (7.0-11.0) fl Gran % 72.3 H (50.0-68.0) % Lymph % (Auto) 16.6 L (22.0-35.0) % [place] % (Auto) 10.7 H (1.0-6.0) % Eos % (Auto) 0.3 L (1.5-5.0) % Baso % (Auto) 0.1 (0.0-3.0) % Gran # 6.64 H (1.4-6.5) Lymph # 1.5 (1.2-3.4) [place] # 1.0 H (0.1-0.6) Eos # 0.0 (0.0-0.7) Baso # 0.01 (0.0-2.0) K/mm3 PT 10.5 (9.9-11.8) Seconds INR 0.97 (0.93-1.08) APTT 42.6 H 58.5 H (23.7-30.8) Seconds Sodium 136 (132-148) mmol/L Potassium 4.1 (3.6-5.0) mmol/L Chloride 102 (98-107) mmol/L Carbon Dioxide 29 (21-33) mmol/L Anion Gap 9 L (10-20) BUN 23 H (7-21) mg/dL Creatinine 0.8 (0.5-1.4) mg/dL Est GFR ( Amer) > 60 Est GFR (Non-Af Amer) > 60 Random Glucose 114 H (70-110) mg/dL Calcium 8.5 (8.4-10.5) mg/dL Total Bilirubin 0.4 (0.2-1.3) mg/dL AST 39 (15-59) U/L ALT 34 (7-56) U/L Alkaline Phosphatase 53 (38-133) U/L Total Protein 6.8 (5.8-8.3) g/dL Albumin 3.3 (3.0-4.8) g/dL Globulin 3.5 gm/dL Albumin/Globulin Ratio 0.9 L (1.1-1.8) Vancomycin Trough < 5.0 L (5.0-10.0) ug/mL Laboratory Results - last 24 hr 07/08/16 07/09/16 07/09/16 20:10 05:40 10:55 WBC 9.4 9.2 RBC 3.71 3.65 Hgb 11.5 L 11.2 L Hct 33.7 L 33.5 L MCV 90.8 91.8 MCH 31.0 30.7 MCHC 34.1 33.4 RDW 13.4 13.5 Plt Count 217 220 MPV 11.4 H 11.6 H Gran % 72.3 H Lymph % (Auto) 16.6 L [place] % (Auto) 10.7 H Eos % (Auto) 0.3 L Baso % (Auto) 0.1 Gran # 6.64 H Lymph # 1.5 [place] # 1.0 H Eos # 0.0 Baso # 0.01 PT 10.5 INR 0.97 APTT 58.5 H 42.6 H Sodium 136 Potassium 4.1 Chloride 102 Carbon Dioxide 29 Anion Gap 9 L BUN 23 H Creatinine 0.8 Est GFR ( Amer) > 60 Est GFR (Non-Af Amer) > 60 Random Glucose 114 H Calcium 8.5 Total Bilirubin 0.4 AST 39 ALT 34 Alkaline Phosphatase 53 Total Protein 6.8 Albumin 3.3 Globulin 3.5 Albumin/Globulin Ratio 0.9 L Vancomycin Trough < 5.0 L Critical Care Progress Note - Nutrition Nutrition: Nutrition Category Date Time Status NPO Diet [DIET] Diets 07/09/16 Breakfast Ordered Attending/Attestation - Attestation I have personally seen and examined this patient.: Yes I have fully participated in the care of the patient.: Yes I have reviewed all pertinent clinical information: Yes Notes (Text): 07/09/16 15:53 51 y/o M s/p Epidural abscess and drainage with Laminectomy. s/p Fusion T2-T4 No improvement in neurological loss in the lower ext PT/OT No further G.I blood loss. Plan for EGD today to evaluate for bleeding and obstruction. HGb Stable. Diet NPO for now. Likely will need pro-motility agents and Bowel regimen. Will likely need Urology for Supra-pubic catheter for neurogenic bladder. Lower ext DVT- On Heparin ggt. Neurosurgery following the patient closely for any new need for surgical intervention. cc time 65 min
--- NOTE | 2016-07-09 09:47 | CP.PCM.PN ---
Subjective - Date & Time of Evaluation Date of Evaluation: 07/09/16 Time of Evaluation: 09:44 - Subjective Subjective: SPINE - POD #2 Pt's condition same. For endoscopy this am. ROSELYN drainage minimal. Has not regained any fct in LE's. Being seen by therapy. VSS. Afebrile. LE's 0/5. No sensation to light touch. UE's nl. Dressing dry, intact. Plan: Cont present care. ROSELYN drain d/c'd. Daily dressing changes. Objective - Vital Signs/Intake and Output Vital Signs (last 24 hours): Temp Pulse Resp BP Pulse Ox 98.2 F 67 24 145/81 98 07/09/16 07:35 07/09/16 02:06 07/09/16 02:00 07/09/16 02:00 07/09/16 02:00 Intake and Output: 07/09/16 07/09/16 06:59 18:59 Intake Total 1050 Output Total 1210 Balance -160 - Medications Medications: Current Medications Hydralazine HCl (Apresoline) 10 mg IVP Q6 PRN PRN Reason: FOR SBP>170 & Diastolic>100 Vancomycin HCl (Vancomycin 1gm) 250 mls @ 167 mls/hr IVPB Q12H DONAL PRN Reason: Protocol Last Admin: 07/09/16 00:00 Dose: 167 mls/hr Meropenem 1g/NS 100mL IVPB (Meropenem 1g/Ns 100ml Ivpb) 100 mls @ 100 mls/hr IVPB Q8 DONAL PRN Reason: Protocol Stop: 07/21/16 14:01 Last Admin: 07/09/16 05:48 Dose: 100 mls/hr Heparin Sodium/Sodium Chloride (Heparin 82254 Units/250ml 1/2 Normal Saline) 250 mls @ 19.006 mls/hr IV .[id number] PRN; Protocol; 14.35 UNITS/KG/HR PRN Reason: ADJUST RATE PER PROTOCOL Last Admin: 07/09/16 02:15 Dose: 26.953 mls/hr Dextrose/Sodium Chloride (Dextrose 5%/0.9% Ns 1000 Ml) 1,000 mls @ 50 mls/hr IV .Q20H DONAL Last Admin: 07/08/16 12:55 Dose: 50 mls/hr Metoprolol Tartrate (Lopressor) 25 mg PO BID [facility] Last Admin: 07/08/16 17:16 Dose: Not Given Morphine Sulfate (Morphine) 2 mg IVP Q3H PRN PRN Reason: Pain, moderate (4-7) Morphine Sulfate (Morphine) 4 mg IV Q3H PRN PRN Reason: Pain, severe (8-10) Ondansetron HCl (Zofran Inj) 4 mg IVP Q8H PRN PRN Reason: Nausea/Vomiting Last Admin: 07/08/16 07:57 Dose: 4 mg Oxycodone/Acetaminophen (Percocet 5/325 Mg Tab) 1 tab PO Q4 PRN PRN Reason: Pain, Mild (1-3) Stop: 07/10/16 15:56 Last Admin: 07/08/16 05:07 Dose: 1 tab Pantoprazole Sodium (Protonix Inj) 40 mg IVP Q12 [facility] Last Admin: 07/09/16 09:01 Dose: 40 mg - Labs Labs: 07/09/16 05:40 07/09/16 05:40 PT 10.5 Seconds (9.9-11.8) 07/09/16 05:40 INR 0.97 (0.93-1.08) 07/09/16 05:40 APTT 42.6 Seconds (23.7-30.8) H 07/09/16 05:40
--- NOTE | 2016-07-09 10:21 | PN ---
DATE: 07/09/2016 SUBJECTIVE: The patient is in bed in no acute distress, nontoxic, was seen early this morning in CCU 129, bed 1. He is not able to move his legs. He is awake and alert. No fevers. He had an unevent ful night. PHYSICAL EXAMINATION: VITAL SIGNS: Temperature is 98, blood pressure is 140/80, respiratory rate of 16. HEENT: Unremarkable. NECK: Supple. LUNGS: Have decreased breath sounds. HEART: Normal S1, S2. ABDOMEN: Soft, nontender. LABORATORY DATA: Reveals a white count of 13,000, is down to 9.2, hemoglobin of 11, platelets of 220 and 72% granulocytosis. Chemistries reveal the BUN of 23, creatinine of 0.8, procalcitonin 0.12. U rinalysis is noted. HIV is negative. Hepatitis profile is negative. Microbiology reveals gram-posi tive cocci from the OR wound culture and the aerobic culture is also pending. Currently, the patient is on vancomycin and meropenem. ASSESSMENT AND PLAN: A 51-year-old male, a long time smoker, alcohol abuser, admitted with cord comp ression and lower extremity paralysis, status post laminectomy with gram-positive cocci osteomyelitis and/or diskitis, currently on vancomycin and meropenem. Awaiting for the identification and the sen sitivity of the infected epidural mass. We will check on the pathology report. Also check on the van comycin level. Colt Coronel MD cc: [id number] TT: 07/09/2016 10:20:41 Confirmation # [id number] Dictation # [id number]
--- NOTE | 2016-07-09 10:25 | PN ---
DATE: 07/09/2016 REASON FOR CONSULTATION AND FOLLOWUP: Chest pain, cardiac evaluation, status post spinal abscess, DV T, chest pain secondary to spinal abscess. BRIEF CLINICAL HISTORY: This is a 51-year-old male with no significant past medical history admitted with 1 week duration of pain radiating to the chest from the back, found to have spinal abscess, was drained. The patient also found to have a right lower extremity DVT. Last night, the patient had c offee ground, NG tube in position, going for endoscopy today. Denies any chest pain. PHYSICAL EXAMINATION: VITAL SIGNS: Temperature afebrile, heart rate 79, blood pressure 145/80. HEENT: PERRLA. Extraocular muscles intact. NECK: Supple. No carotid bruits. No thyromegaly. CHEST: Clear to auscultation. HEART: S1, S2 regular. ABDOMEN: Soft. EXTREMITIES: Clubbing and cyanosis negative. BLOOD WORKUP: As follows: WBC 9.8, hemoglobin 11, hematocrit 33.5, platelet count 220. Chemistry s hows sodium 130, potassium 4.0, chloride 102, carbon dioxide 29, anion gap of 9, BUN 23, creatinine 0 .8. IMPRESSION: Status post spinal abscess, drained; status post deep vein thrombosis, right lower extre mity, right common femoral vein (obesity). No evidence of myocardial infarction. Chest pain radiati ng from the spine abscess. Coffee-ground vomitus. Nasogastric tube in position, for endoscopy today . RECOMMENDATION: We will get echo to assess LV function. CVS status is stable. We will change IV me dication because the patient is n.p.o. We will put hydralazine p.r.n. and monitor with you. Thank you, Dr. Edgardo Marc, for providing us opportunity in taking care of the patient. Jarrod Barbour MD cc: [id number] TT: 07/09/2016 10:24:30 Confirmation # [id number] Dictation # [id number] tn
[2016-07-09] MEDS: Morphine 4 mg/ml ISec IV PRN ×2 (10:33→20:47)
[2016-07-09] MEDS: Vancomycin 1gm in NS 250ml 250 ML IVPB SCH ×2 (11:25)
--- NOTE | 2016-07-09 12:21 | CP.PCM.PN ---
<Keri Guzman - Last Filed: 07/09/16 12:17> Subjective - Date & Time of Evaluation Date of Evaluation: 07/09/16 Time of Evaluation: 12:17 - Subjective Subjective: HOSPITALIST PROGRESS NOTE 51 y/o male s/p lamenectomy POD #2. Patient is seen and examined at bedside. Patient had NG tube placed yesterday for abd distention and possible ileus. NG output is black in color. Otherwise, no acute events overnight. Patient's only c/o is back pain at site of procedure. Pt is still unable to move his LE and is unable to feel to about his abdomen. Patient is currently NPO. Objective - Vital Signs/Intake and Output Vital Signs (last 24 hours): Temp Pulse Resp BP Pulse Ox 98.4 F 67 24 145/81 98 07/09/16 12:15 07/09/16 02:06 07/09/16 02:00 07/09/16 02:00 07/09/16 02:00 Intake and Output: 07/09/16 07/09/16 06:59 18:59 Intake Total 1050 Output Total 1210 Balance -160 - Medications Medications: Current Medications Bacitracin (Bacitracin) 1 ea TOP DAILY [facility] Hydralazine HCl (Apresoline) 10 mg IVP Q6 PRN PRN Reason: FOR SBP>170 & Diastolic>100 Vancomycin HCl (Vancomycin 1gm) 250 mls @ 167 mls/hr IVPB Q12H [facility] PRN Reason: Protocol Last Admin: 07/09/16 11:25 Dose: 167 mls/hr Meropenem 1g/NS 100mL IVPB (Meropenem 1g/Ns 100ml Ivpb) 100 mls @ 100 mls/hr IVPB Q8 [facility] PRN Reason: Protocol Stop: 07/21/16 14:01 Last Admin: 07/09/16 05:48 Dose: 100 mls/hr Heparin Sodium/Sodium Chloride (Heparin 77030 Units/250ml 1/2 Normal Saline) 250 mls @ 19.006 mls/hr IV .[id number] PRN; Protocol; 14.35 UNITS/KG/HR PRN Reason: ADJUST RATE PER PROTOCOL Last Admin: 07/09/16 02:15 Dose: 26.953 mls/hr Dextrose/Sodium Chloride (Dextrose 5%/0.9% Ns 1000 Ml) 1,000 mls @ 50 mls/hr IV .Q20H [facility] Last Admin: 07/08/16 12:55 Dose: 50 mls/hr Metoprolol Tartrate (Lopressor) 25 mg PO BID [facility] Last Admin: 07/09/16 11:30 Dose: Not Given Morphine Sulfate (Morphine) 2 mg IVP Q3H PRN PRN Reason: Pain, moderate (4-7) Morphine Sulfate (Morphine) 4 mg IV Q3H PRN PRN Reason: Pain, severe (8-10) Last Admin: 07/09/16 10:33 Dose: 4 mg Ondansetron HCl (Zofran Inj) 4 mg IVP Q8H PRN PRN Reason: Nausea/Vomiting Last Admin: 07/08/16 07:57 Dose: 4 mg Oxycodone/Acetaminophen (Percocet 5/325 Mg Tab) 1 tab PO Q4 PRN PRN Reason: Pain, Mild (1-3) Stop: 07/10/16 15:56 Last Admin: 07/08/16 05:07 Dose: 1 tab Pantoprazole Sodium (Protonix Inj) 40 mg IVP Q12 [facility] Last Admin: 07/09/16 09:01 Dose: 40 mg - Labs Labs: 07/09/16 05:40 07/09/16 05:40 PT 10.5 Seconds (9.9-11.8) 07/09/16 05:40 INR 0.97 (0.93-1.08) 07/09/16 05:40 APTT 42.6 Seconds (23.7-30.8) H 07/09/16 05:40 - Constitutional Appears: No Acute Distress - Head Exam Head Exam: ATRAUMATIC - ENT Exam ENT Exam: Mucous Membranes Moist - Respiratory Exam Respiratory Exam: Rhonchi (diffusely ). absent: Accessory Muscle Use, Rales, Wheezes - Cardiovascular Exam Cardiovascular Exam: REGULAR RHYTHM, +S1, +S2. absent: Diastolic murmur, Gallop , Rubs, Murmur - GI/Abdominal Exam GI & Abdominal Exam: Distended. absent: Tenderness - Extremities Exam Extremities Exam: absent: Pedal Edema, Tenderness - Neurological Exam Neurological Exam: Alert, Awake, Oriented x3 - Psychiatric Exam Psychiatric exam: Normal Affect, Normal Mood - Skin Skin Exam: Dry, Intact, Normal Color, Warm Assessment and Plan - Assessment and Plan (Free Text) Assessment: 51 year old male with no significant past medical history is s/p T2-T4 lamenectomy POD #1 US of LE showed R LE DVT. Lumbar CT showed disc bulging from L3-S1 with foraminal stenosis. STAT Plan: 1. Epidural space abscess s/p lamenectomy T2-T4 POD #2 - Wound cultures grew strep pneumo - Pathology is pending - Will continue antibiotics vanco and meropenem - ROSELYN drain is d/trinity per neurosx recs - CT of chest/abd/pelvis is negative for malignancy -ID is consulted -MRI c/ and w/o contrast on 07/07 prior to procedure showed fluid collection in ventral epidural space from T1-T5 with cord compression and obliteration of subarachinoid space; abnormal signal in T3&T4 which may represent osteomyelitis vs. metastatic dz; no disc herniation, spinal canal stenosis or neuroforaminal narrowing. Lumbar spine MRI was negative for cauda equina. Please see full reports for details. 2. 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 Neurogenic bowel vs. ileus - GI is consulted - NG tube in place draining black fluid - EGD scheduled for today 5. Neurogenic bladder - Haque in place - Urology is consulted. Pending recs 4. R LE DVT - Pt is on heparin drip and closely monitored for bleeding at surgical site. Will discuss with neurosx about starting coumadin - Hypercoag workup ordered - Heme consult, Dr. Warren requested. Awaiting recs - US of LE showed thrombus in right common and proximal femoral vein 5. CP R/O ACS - Cardio is consulted - Echo results are pending - Hgb A1c is 6.3 6. Prophylaxis - Protonix - heparin drip Case discussed with attending, Dr. Tutu Marc <Tutu Marc - Last Filed: 07/09/16 16:37> Objective - Vital Signs/Intake and Output Vital Signs (last 24 hours): Temp Pulse Resp BP Pulse Ox 98.4 F 71 22 154/83 H 93 L 07/09/16 12:15 07/09/16 16:00 07/09/16 16:00 07/09/16 16:00 07/09/16 16:00 Intake and Output: 07/09/16 07/09/16 06:59 18:59 Intake Total 1050 Output Total 1210 Balance -160 - Medications Medications: Current Medications Bacitracin (Bacitracin) 1 ea TOP DAILY [facility] Hydralazine HCl (Apresoline) 10 mg IVP Q6 PRN PRN Reason: FOR SBP>170 & Diastolic>100 Meropenem 1g/NS 100mL IVPB (Meropenem 1g/Ns 100ml Ivpb) 100 mls @ 100 mls/hr IVPB Q8 [facility] PRN Reason: Protocol Stop: 07/21/16 14:01 Last Admin: 07/09/16 13:31 Dose: 100 mls/hr Heparin Sodium/Sodium Chloride (Heparin 87931 Units/250ml 1/2 Normal Saline) 250 mls @ 19.006 mls/hr IV .[id number] PRN; Protocol; 14.35 UNITS/KG/HR PRN Reason: ADJUST RATE PER PROTOCOL Last Admin: 07/09/16 02:15 Dose: 26.953 mls/hr Dextrose/Sodium Chloride (Dextrose 5%/0.9% Ns 1000 Ml) 1,000 mls @ 50 mls/hr IV .Q20H [facility] Last Admin: 07/08/16 12:55 Dose: 50 mls/hr Daptomycin 800 mg/ Sodium (Chloride) 100 mls @ 200 mls/hr IV Q24H [facility] PRN Reason: Protocol Stop: 08/06/16 16:01 Metoprolol Tartrate (Lopressor) 25 mg PO BID [facility] Last Admin: 07/09/16 11:30 Dose: Not Given Morphine Sulfate (Morphine) 2 mg IVP Q3H PRN PRN Reason: Pain, moderate (4-7) Morphine Sulfate (Morphine) 4 mg IV Q3H PRN PRN Reason: Pain, severe (8-10) Last Admin: 07/09/16 10:33 Dose: 4 mg Ondansetron HCl (Zofran Inj) 4 mg IVP Q8H PRN PRN Reason: Nausea/Vomiting Last Admin: 07/08/16 07:57 Dose: 4 mg Oxycodone/Acetaminophen (Percocet 5/325 Mg Tab) 1 tab PO Q4 PRN PRN Reason: Pain, Mild (1-3) Stop: 07/10/16 15:56 Last Admin: 07/08/16 05:07 Dose: 1 tab Pantoprazole Sodium (Protonix Inj) 40 mg IVP Q12 [facility] Last Admin: 07/09/16 09:01 Dose: 40 mg - Labs Labs: 07/09/16 05:40 07/09/16 05:40 PT 10.5 Seconds (9.9-11.8) 07/09/16 05:40 INR 0.97 (0.93-1.08) 07/09/16 05:40 APTT 42.6 Seconds (23.7-30.8) H 07/09/16 05:40 Attending/Attestation - Attestation I have personally seen and examined this patient.: Yes I have fully participated in the care of the patient.: Yes I have reviewed all pertinent clinical information, including history, physical exam and plan: Yes Notes (Text): I have seen and examined patient at bedside. This is 51 year old male with history of substance abuse (snorts cocaine), tobacco, alcohol use who got admitted for evaluation of back pain and found to have epidural abscess T1-T5, urinary retention, acute RLE DVT. He underwent emergent laminectomy and epidural abscess was drained. Patient did not have any improvement in his neurologic function. Still have motor and sensory loss in both lower extremities. Wound culture is grwoing strep pneumonia. He is on vanco and meropenem. Blood cultures are negative. HIV negative. He remains on heparin drip for acute DVT. Hypercoagulable work up sent. CT chest, abdomen and pelvis negative. As per heme onc, he needs anticoagulation for atleast 6 months. He has haque catheter. Urology consult pending. Cardiology consult appreciated. Echo pending. GI consult appreciated regarding gastric distention which was thought to be most likely related to neurogenic bowel dysfunction. Plan for EGD today. Dr Tutu Marc
[2016-07-09] MEDS: Bacitracin 500 Units/gm Oint Foilpak UD TOP SCH (17:11)
--- NOTE | 2016-07-09 17:15 | CARD ---
APPROVED REPORT EXAM: Two-dimensional and M-mode echocardiogram with Doppler and color Doppler. INDICATION Chest Pain 2D DIMENSIONS Left Atrium (2D)4.0 (1.6-4.0cm)IVSd1.1 (0.7-1.1cm) LVDd6.1 (3.9-5.9cm)PWd1.2 (0.7-1.1cm) LVDs3.9 (2.5-4.0cm)FS (%) 35.1 % LVEF (%)63.5 (>50%) M-Mode DIMENSIONS Aortic Root3.60 (2.2-3.7cm)Aortic Cusp Exc.1.10 (1.5-2.0cm) Aortic Valve AoV Peak Rzpytnuw466.0cm/Loree Peak GR.10mmHg Mitral Valve E/A ratio0.0 TDI E/Lateral E'0.0E/Medial E'0.0 Tricuspid Valve TR Peak [id number]/sRAP [id number] Peak Gr.12mmHg [id number] LEFT VENTRICLE The left ventricle is normal size. There is normal left ventricular wall thickness. The left ventricular function is normal.EF-55-60% There is normal LV segmental wall motion. The left ventricular diastolic function is normal. No left ventricle thrombus noted on this study. There is no ventricular septal defect visualized. There is no left ventricular aneurysm. There is no mass noted in the left ventricle. RIGHT VENTRICLE The right ventricle is normal size. There is normal right ventricular wall thickness. The right ventricular systolic function is normal. ATRIA The left atrium is borderline dilated. The right atrium size is normal. The interatrial septum is intact with no evidence for an atrial septal defect. AORTIC VALVE The aortic valve is thickened but opens well. There is trace aortic regurgitation. There is no aortic valvular stenosis. There is no aortic valvular vegetation. MITRAL VALVE The mitral valve is thickened but opens well. Mitral regurgitation is trace. There is no mitral valve stenosis. There is no evidence of mitral valve prolapse. TRICUSPID VALVE The tricuspid valve leaflets are thickened , but open well. There is trace tricuspid regurgitation.RVSP{-22 mmof hg. There is no tricuspid valve stenosis. There is no tricuspid valve prolapse or vegetation. PULMONIC VALVE The pulmonic valve is not well visualized. GREAT VESSELS The aortic root is normal in size. The ascending aorta is normal in size. The pulmonary is not well visualized. The IVC was not visualized. PERICARDIAL EFFUSION There is no pleural effusion. There is no pericardial effusion. <Conclusion> The left ventricle is normal size. There is normal left ventricular wall thickness. The left ventricular function is normal.EF-55-60% There is trace aortic regurgitation. Mitral regurgitation is trace. There is trace tricuspid regurgitation.RVSP{-22 mmof hg.
[2016-07-09] MEDS ORDERED: Lidocaine 2% Jelly (30 ml) ONE (19:39)
[2016-07-09] MEDS ORDERED: Propofol 10 mg/ml Inj (20 ML) ONE ×3 (19:53→20:19)
[2016-07-09] MEDS ORDERED: Midazolam 2 MG/2 ML VIAL ONE ×2 (20:16→20:17)
--- NOTE | 2016-07-09 20:40 | CP.PCM.PN ---
Subjective - Date & Time of Evaluation Date of Evaluation: 07/09/16 Time of Evaluation: 20:33 - Subjective Subjective: RFV: Gastric distention S: Patient was scheduled for EGD today. Heparin held in the morning. He was brought to OR for EGD. Anasthesia prepared the patient and induced for general anasthesia. He had an edematous airway and difficult intubated. He became increasingly hypoxic during the intubation process and lost a pulse briefly. ACLS initiated. Chest compressions started. He received one dose of epinephrine. Pulse returned and chest compressions were stopped. He had a brief NSVT after epi which resolved. Patient stabilized and transported back to ICU. ICU team informed. Objective - Vital Signs/Intake and Output Vital Signs (last 24 hours): Temp Pulse Resp BP Pulse Ox 98.1 F 71 22 154/83 H 93 L 07/09/16 16:52 07/09/16 16:00 07/09/16 16:00 07/09/16 16:00 07/09/16 16:00 Intake and Output: 07/09/16 07/10/16 18:59 06:59 Intake Total 950 Output Total 950 Balance 0 - Medications Medications: Current Medications Bacitracin (Bacitracin) 1 ea TOP DAILY [facility] Last Admin: 07/09/16 17:11 Dose: 1 ea Hydralazine HCl (Apresoline) 10 mg IVP Q6 PRN PRN Reason: FOR SBP>170 & Diastolic>100 Meropenem 1g/NS 100mL IVPB (Meropenem 1g/Ns 100ml Ivpb) 100 mls @ 100 mls/hr IVPB Q8 [facility] PRN Reason: Protocol Stop: 07/21/16 14:01 Last Admin: 07/09/16 13:31 Dose: 100 mls/hr Heparin Sodium/Sodium Chloride (Heparin 91198 Units/250ml 1/2 Normal Saline) 250 mls @ 19.006 mls/hr IV .[id number] PRN; Protocol; 14.35 UNITS/KG/HR PRN Reason: ADJUST RATE PER PROTOCOL Last Admin: 07/09/16 02:15 Dose: 26.953 mls/hr Dextrose/Sodium Chloride (Dextrose 5%/0.9% Ns 1000 Ml) 1,000 mls @ 50 mls/hr IV .Q20H [facility] Last Admin: 07/08/16 12:55 Dose: 50 mls/hr Daptomycin 800 mg/ Sodium (Chloride) 100 mls @ 200 mls/hr IV Q24H [facility] PRN Reason: Protocol Stop: 08/06/16 16:01 Last Admin: 07/09/16 18:21 Dose: 200 mls/hr Metoprolol Tartrate (Lopressor) 25 mg PO BID [facility] Last Admin: 07/09/16 11:30 Dose: Not Given Morphine Sulfate (Morphine) 2 mg IVP Q3H PRN PRN Reason: Pain, moderate (4-7) Morphine Sulfate (Morphine) 4 mg IV Q3H PRN PRN Reason: Pain, severe (8-10) Last Admin: 07/09/16 10:33 Dose: 4 mg Ondansetron HCl (Zofran Inj) 4 mg IVP Q8H PRN PRN Reason: Nausea/Vomiting Last Admin: 07/08/16 07:57 Dose: 4 mg Oxycodone/Acetaminophen (Percocet 5/325 Mg Tab) 1 tab PO Q4 PRN PRN Reason: Pain, Mild (1-3) Stop: 07/10/16 15:56 Last Admin: 07/08/16 05:07 Dose: 1 tab Pantoprazole Sodium (Protonix Inj) 40 mg IVP Q12 [facility] Last Admin: 07/09/16 09:01 Dose: 40 mg - Labs Labs: 07/09/16 05:40 07/09/16 05:40 PT 10.5 Seconds (9.9-11.8) 07/09/16 05:40 INR 0.97 (0.93-1.08) 07/09/16 05:40 APTT 42.6 Seconds (23.7-30.8) H 07/09/16 05:40 - Constitutional Appears: Toxic, Chronically Ill - Head Exam Head Exam: ATRAUMATIC, NORMOCEPHALIC - Eye Exam Eye Exam: Normal appearance. absent: Scleral icterus Pupil Exam: PERRL - ENT Exam ENT Exam: Mucous Membranes Dry - Cardiovascular Exam Cardiovascular Exam: +S1, +S2 - GI/Abdominal Exam GI & Abdominal Exam: Distended, Soft. absent: Guarding, Tenderness - Neurological Exam Additional comments: Sedated - Skin Skin Exam: Dry, Warm Assessment and Plan - Assessment and Plan (Free Text) Assessment: 51 year old male with history of polysubstance abuse a/w chest and back pain, now s/p emergent decompressive laminectomy for epidural abscess. We are consulted for gastric distention, possibly neurogenic bowel dysfunction, now s/ p attempted EGD. Patient with difficult airway during general anasthesia complicated by hypoxia and brief cardiac arrest successfully resuscitated after one round of chest compressions/epi, now intubated back in ICU. EGD aborted. 1. Cardiac arrest 2. Gastric distention 3. Abdominal distention Plan: -continue NGT to LIS -continue PPI IV -considering difficult intubation and difficulty with attempted egd, would not attempt again at this point unless absolutely necessary -may resume heparin -further resuscitation/vent management per ICU
--- NOTE | 2016-07-09 21:45 | PCM.URO ---
Urology Progress Note - Objective Lab Results Last 24 Hours: Laboratory Results - last 24 hr 07/09/16 07/09/16 05:40 10:55 WBC 9.2 RBC 3.65 Hgb 11.2 L Hct 33.5 L MCV 91.8 MCH 30.7 MCHC 33.4 RDW 13.5 Plt Count 220 MPV 11.6 H Gran % 72.3 H Lymph % (Auto) 16.6 L [facility] % (Auto) 10.7 H Eos % (Auto) 0.3 L Baso % (Auto) 0.1 Gran # 6.64 H Lymph # 1.5 [facility] # 1.0 H Eos # 0.0 Baso # 0.01 PT 10.5 INR 0.97 APTT 42.6 H Sodium 136 Potassium 4.1 Chloride 102 Carbon Dioxide 29 Anion Gap 9 L BUN 23 H Creatinine 0.8 Est GFR ( Amer) > 60 Est GFR (Non-Af Amer) > 60 Random Glucose 114 H Calcium 8.5 Total Bilirubin 0.4 AST 39 ALT 34 Alkaline Phosphatase 53 Total Protein 6.8 Albumin 3.3 Globulin 3.5 Albumin/Globulin Ratio 0.9 L Vancomycin Trough < 5.0 L Intake & Output: Intake & Output 07/09/16 07/09/16 07/10/16 06:59 18:59 06:59 Intake Total 1050 950 Output Total 1210 950 Balance -160 0 Weight 293 lb Intake: IV 600 950 Right Hand 600 950 Other 450 Output: Drainage 210 Left Back 20 Right Nare 190 Urine 1000 950 Urethral (Mackenzie) 1000 950 Other: Voiding Method Indwelling Catheter Vital Signs: Vital Signs - 24 hr 07/08/16 07/08/16 07/08/16 22:00 22:30 23:00 Temperature Pulse Rate 73 71 71 Respiratory 16 22 23 Rate Blood Pressure 143/78 136/78 147/73 O2 Sat by Pulse 94 L 92 L 94 L Oximetry 07/08/16 07/08/16 07/08/16 23:24 23:30 23:36 Temperature Pulse Rate 75 67 70 Respiratory 18 17 Rate Blood Pressure 143/74 O2 Sat by Pulse 97 97 Oximetry 07/09/16 07/09/16 07/09/16 00:00 00:31 01:00 Temperature 98.9 F Pulse Rate 70 68 66 Respiratory 18 21 20 Rate Blood Pressure 143/75 134/79 O2 Sat by Pulse 98 98 98 Oximetry 07/09/16 07/09/16 07/09/16 01:01 01:30 02:00 Temperature Pulse Rate 69 70 69 Respiratory 22 16 24 Rate Blood Pressure 135/76 145/77 145/81 O2 Sat by Pulse 97 97 98 Oximetry 07/09/16 07/09/16 07/09/16 02:06 02:20 02:30 Temperature Pulse Rate 67 65 67 Respiratory 21 19 Rate Blood Pressure 144/85 O2 Sat by Pulse 97 97 Oximetry 07/09/16 07/09/16 07/09/16 03:00 03:30 04:00 Temperature Pulse Rate 65 65 66 Respiratory 20 18 21 Rate Blood Pressure 126/61 132/71 139/60 O2 Sat by Pulse 96 97 97 Oximetry 07/09/16 07/09/16 07/09/16 04:30 05:00 05:30 Temperature Pulse Rate 74 64 66 Respiratory 17 20 17 Rate Blood Pressure 129/76 136/65 147/78 O2 Sat by Pulse 95 95 97 Oximetry 07/09/16 07/09/16 07/09/16 06:00 06:30 07:00 Temperature Pulse Rate 64 67 63 Respiratory 18 16 22 Rate Blood Pressure 136/72 134/67 147/68 O2 Sat by Pulse 98 96 96 Oximetry 07/09/16 07/09/16 07/09/16 07:31 07:35 08:00 Temperature 98.2 F Pulse Rate 70 65 Respiratory 23 20 Rate Blood Pressure 146/95 H 146/80 O2 Sat by Pulse 94 L 95 Oximetry 07/09/16 07/09/16 07/09/16 08:30 09:00 09:30 Temperature Pulse Rate 65 65 73 Respiratory 20 18 14 Rate Blood Pressure 111/71 144/75 124/84 O2 Sat by Pulse 95 96 95 Oximetry 07/09/16 07/09/16 07/09/16 09:31 10:00 10:30 Temperature Pulse Rate 74 71 73 Respiratory 25 H 23 Rate Blood Pressure 149/83 163/87 H O2 Sat by Pulse 94 L 92 L Oximetry 07/09/16 07/09/16 07/09/16 11:00 11:32 12:00 Temperature Pulse Rate 67 71 74 Respiratory 22 27 H Rate Blood Pressure 144/106 H 139/86 130/68 O2 Sat by Pulse 90 L 91 L 97 Oximetry 0407/09/16 07/09/16 12:15 12:31 12:51 Temperature 98.4 F Pulse Rate 69 67 Respiratory 19 19 Rate Blood Pressure 157/86 H O2 Sat by Pulse 95 94 L Oximetry 07/09/16 07/09/16 07/09/16 13:00 13:30 14:00 Temperature Pulse Rate 68 69 68 Respiratory 17 17 24 Rate Blood Pressure 134/66 145/71 150/83 O2 Sat by Pulse 94 L 96 93 L Oximetry 07/09/16 07/09/16 07/09/16 14:24 14:30 15:00 Temperature Pulse Rate 71 72 75 Respiratory 18 20 18 Rate Blood Pressure 150/87 O2 Sat by Pulse 94 L 95 94 L Oximetry 07/09/16 07/09/16 07/09/16 15:01 15:30 16:00 Temperature Pulse Rate 71 74 71 Respiratory 20 22 22 Rate Blood Pressure 163/82 H 152/77 H 154/83 H O2 Sat by Pulse 94 L 94 L 93 L Oximetry 07/09/16 07/09/16 16:52 19:54 Temperature 98.1 F Pulse Rate Respiratory Rate Blood Pressure O2 Sat by Pulse 95 Oximetry
[2016-07-09 21:53] LABS: BASO # 0.01 K/mm3 (0.0-2.0); BASO % 0.1 % (0.0-3.0); EOS % 0.2 % (1.5-5.0); GRAN # 10.41 (1.4-6.5); GRAN % 84.4 % (50.0-68.0); HEMOGLOBIN 11.7 gm/dL (14.0-18.0); LYMPH # 0.8 (1.2-3.4); LYMPH % 6.6 % (22.0-35.0); MEAN CELL VOLUME 92.3 fL (80.0-105.0); MEAN CORPUSCULAR HEMOGLOBIN 30.9 pg (25.0-35.0); MEAN CORPUSCULAR HGB CONC 33.4 g/dl (31.0-37.0); MEAN PLATELET VOLUME 11.3 fl (7.0-11.0); MONO # 1.1 (0.1-0.6); MONO % 8.7 % (1.0-6.0); PLATELET COUNT 206 10^3/uL (120.0-450.0); RBC 3.79 10^6/uL (3.5-6.1); RED CELL DISTRIBUTION WIDTH 13.3 % (11.5-14.5); WHITE BLOOD COUNT 12.3 10^3/ul (4.5-11.0)
[2016-07-09 21:55] LABS: ALB/GLOB RATIO 0.9 (1.1-1.8); ALBUMIN 3.3 g/dL (3.0-4.8); ALT/SGPT 84 U/L (7-56); AST/SGOT 101 U/L (15-59); BLOOD UREA NITROGEN 22 mg/dL (7-21); CALCIUM 8.5 mg/dL (8.4-10.5); GFR AFRICAN-AMERICAN > 60; GFR NON-AFRICAN AMERICAN > 60; MAGNESIUM 2.4 mg/dL (1.7-2.2)
[2016-07-09 21:59] LABS: PARTIAL THROMBOPLASTIN TIME 27.1 Seconds (23.7-30.8); PROTHROMBIN TIME 10.8 Seconds (9.9-11.8)
[2016-07-09] MEDS: Dextrose 5%/0.9% NS 1,000 ML IV SCH (22:38)
--- NOTE | 2016-07-09 23:05 | CT ---
EXAM: CT Head Without Intravenous Contrast CLINICAL HISTORY: 51 years old, male; Signs and symptoms; Other: Evaluate for hypoxic changes, ich; Additional info: S/P cardiac arrest; Eval for hypoxic changes/ich TECHNIQUE: Axial computed tomography images of the head/brain without intravenous contrast. This CT exam was performed using one or more of the following dose reduction techniques: automated exposure control, adjustment of the mA and/or kV according to patient size, and/or use of iterative reconstruction technique. EXAM DATE/TIME: 07/09/2016 8:22 PM COMPARISON: No relevant prior studies available. FINDINGS: LIMITATIONS: Exam is somewhat limited by mild streak/motion artifact. BRAIN: Diffuse, age-related cortical atrophy and ventriculomegaly. No significant acute abnormality identified. No acute hemorrhage seen within the brain. No acute extra-axial fluid collections visualized. No evidence of significant mass effect within the brain. VENTRICLES: See above. BONES/JOINTS: No acute fractures or other acute bony abnormality visualized. SOFT TISSUES: No acute abnormality of the visualized soft tissues is seen. SINUSES: Large, well-defined, dense, lobulated bony lesion measuring 1.8 cm is seen in the a left anterior ethmoid sinus, most likely representing a large osteoma. There is complete opacification of the bilateral frontal sinuses and a large mucus retention cyst in the left maxillary sinus. MASTOID AIR CELLS: Mastoid air cells appear clear. TUBES, LINES AND DEVICES: Nasogastric tube in place. IMPRESSION: - No acute findings seen within the brain. 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 - See above for remaining findings.
[2016-07-09 23:51] LABS: THROMBIN CLOTTING TIME 16 sec (13-19)
[2016-07-10] MEDS: Morphine 4 mg/ml ISec IV PRN (00:22)
[2016-07-10 01:32] LABS: ARTERIAL BLOOD GAS HCO3 25.3 mmol/L (21-28); ARTERIAL BLOOD GAS O2 SAT 98.5 % (95-98); ARTERIAL BLOOD GAS PCO2 39 mm/Hg (35-45); ARTERIAL BLOOD GAS PH 7.42 (7.35-7.45); ARTERIAL BLOOD GAS TCO2 26.5 mmol.L (22-28)
[2016-07-10] MEDS: Morphine 4 mg/ml ISec IVP PRN ×5 (04:42→21:12)
[2016-07-10] MEDS: Meropenem 1g/NS 100mL IVPB 100 ML IVPB SCH ×3 (05:25→23:04)
[2016-07-10 06:06] LABS: BASO # 0.02 K/mm3 (0.0-2.0); BASO % 0.2 % (0.0-3.0); EOS # 0.1 (0.0-0.7); EOS % 0.5 % (1.5-5.0); GRAN # 6.91 (1.4-6.5); GRAN % 71.8 % (50.0-68.0); HEMOGLOBIN 10.8 gm/dL (14.0-18.0); LYMPH # 1.6 (1.2-3.4); LYMPH % 16.8 % (22.0-35.0); MEAN CORPUSCULAR HEMOGLOBIN 30.9 pg (25.0-35.0); MEAN CORPUSCULAR HGB CONC 33.5 g/dl (31.0-37.0); MEAN PLATELET VOLUME 11.5 fl (7.0-11.0); MONO % 10.7 % (1.0-6.0); PLATELET COUNT 200 10^3/uL (120.0-450.0); RED CELL DISTRIBUTION WIDTH 13.4 % (11.5-14.5)
[2016-07-10 06:13] LABS: WHITE BLOOD COUNT 9.6 10^3/ul (4.5-11.0)
[2016-07-10 06:21] LABS: ALB/GLOB RATIO 0.9 (1.1-1.8); ALBUMIN 3.1 g/dL (3.0-4.8); ALT/SGPT 79 U/L (7-56); AST/SGOT 64 U/L (15-59); BLOOD UREA NITROGEN 22 mg/dL (7-21); CALCIUM 8.2 mg/dL (8.4-10.5); GFR AFRICAN-AMERICAN > 60; GFR NON-AFRICAN AMERICAN > 60
[2016-07-10] MEDS: Heparin25000 units/250ml 1/2NS 250 ML IV PRN ×2 (07:00→16:24)
[2016-07-10 07:28] LABS: ARTERIAL BLOOD GAS HCO3 27.7 mmol/L (21-28); ARTERIAL BLOOD GAS HEMOGLOBIN 10.8 g/dL (11.7-17.4); ARTERIAL BLOOD GAS O2 CONTENT 14.5 ML/dl (15-23); ARTERIAL BLOOD GAS O2 SAT 96.4 % (95-98); ARTERIAL BLOOD GAS PCO2 39 mm/Hg (35-45); ARTERIAL BLOOD GAS PH 7.46 (7.35-7.45); ARTERIAL BLOOD GAS TCO2 28.9 mmol.L (22-28)
--- NOTE | 2016-07-10 08:33 | RAD ---
HISTORY: intubation COMPARISON: 07/09/2016 FINDINGS: LUNGS: Right-sided opacity. Possible infiltrate versus dependent pleural fluid. No left-sided pulmonary opacity. PLEURA: Moderate right pleural effusion. No left pleural effusion. Please note left costophrenic angle is not included on this film. No pneumothorax. Small amount of pleural fluid seen capping right lung apex. CARDIOVASCULAR: ET tube and NG tube unchanged. Surgical eileen left paramedian neck extending to the upper chest. OSSEOUS STRUCTURES: No significant abnormalities. VISUALIZED UPPER ABDOMEN: Normal. OTHER FINDINGS: None. IMPRESSION: Moderate to large right pleural effusion. Opacity in of right lung may reflect infiltrate versus dependent pleural fluid. Lines and tubes unchanged.
--- NOTE | 2016-07-10 08:53 | CON ---
DATE: 07/07/2016 REASON FOR CONSULTATION: Urinary retention. History is from the chart. The patient is currently resting in the recovery room here in [facility]. I was called for the consultation for urinary retention. The patient is a very pleasant-looking gentleman who is postop now after a laminectomy who had urinar y retention and urology is consulted for further recommendations. PAST MEDICAL AND SURGICAL HISTORY: As listed on the chart. From a urology standpoint, difficult to assess any previous evaluations. He currently is resting comfortably. Mackenzie catheter is in place and draining clear yellow urine. DIAGNOSES: From a urology standpoint, urinary retention. For now, leave the Mackenzie catheter. Once w e get more history from the patient to find out the previous history, we will discuss other options, but now we would just recommend leaving the Mackenzie. Willie Iqbal MD cc: [phone] TT: 07/10/2016 08:52:38 Confirmation # [id number] Dictation # [id number] tn
--- NOTE | 2016-07-10 08:56 | PN ---
DATE: 07/09/2016 See the previously dictated note from 07/07. I also have reviewed the chart and the notes. On 07/07, I was asked to see the patient for urinary retention after a laminectomy. The patient with a large volume of urine. Earlier today, I received a phone call regarding the possibility for further diagnostic studies and t esting. Of significant note, the patient was supposed to have colonoscopy. Except, and the events are noted on the chart, patient actually is currently intubated, resting. They were not able to complete that procedure. He has an NG tube inserted with greater than a liter of fluid volume. From a urology standpoint, we were asked to follow up and see the plans listed below. Mackenzie catheter is draining clear yellow urine. The rest of the physical exam is unremarkable from a urology standpoint. DIAGNOSES: Urinary retention, voiding dysfunction. PLAN: For now, we will leave the Mackenzie catheter in. We will discuss timing for further workup and p austen, but for now, we are not planning any further testing now. The urology plan is leave the Mackenzie catheter to straight drainage, no medication even, and then select specialty hospital er plans will follow. Willie Iqbal MD cc: [phone] TT: 07/10/2016 08:56:00 Confirmation # [id number] Dictation # [id number]
--- NOTE | 2016-07-10 09:55 | RAD ---
HISTORY: intubation COMPARISON: 07/06/2016 FINDINGS: LUNGS: Right-sided volume loss with elevation of right hemidiaphragm. Patient obliquely positioned for this examination. Probable subsegmental atelectasis at right base. Hazy opacity in right apex may reflect pleural effusion at lung apex. Costophrenic angle is clear, however. Endotracheal tube positioned at the level of thoracic inlet. Nasogastric tube extends to left upper quadrant of abdomen. Surgical eileen left side of neck and parasagittal upper chest. PLEURA: As above CARDIOVASCULAR: Normal. OSSEOUS STRUCTURES: No significant abnormalities. VISUALIZED UPPER ABDOMEN: Normal. OTHER FINDINGS: None. IMPRESSION: Right-sided volume loss with elevated right hemidiaphragm. Subsegmental atelectasis right base. Possible right apical pleural fluid. ET tube and NG tube.
--- NOTE | 2016-07-10 10:29 | CP.PCM.PN ---
<Savannah Thornton - Last Filed: 07/10/16 10:22> Subjective - Date & Time of Evaluation Date of Evaluation: 07/10/16 Time of Evaluation: 10:22 - Subjective Subjective: Gastroenterology Fellow/PGY4 Progress Note Remains intubated on sedation after respiratory arrest leading to PEA, ACLS, and ROSC. Nursing notes two watery bowel movements overnight. Unable to complete a 12-point review of systems due to intubation/sedation. Objective - Vital Signs/Intake and Output Vital Signs (last 24 hours): Temp Pulse Resp BP Pulse Ox 98.1 F 68 22 149/67 96 07/10/16 08:24 07/10/16 08:24 07/10/16 08:24 07/10/16 08:24 07/10/16 08:24 Intake and Output: 07/10/16 07/10/16 06:59 18:59 Intake Total 1060 Output Total 800 Balance 260 - Medications Medications: Current Medications Bacitracin (Bacitracin) 1 ea TOP DAILY [facility] Last Admin: 07/09/16 17:11 Dose: 1 ea Hydralazine HCl (Apresoline) 10 mg IVP Q6 PRN PRN Reason: FOR SBP>170 & Diastolic>100 Meropenem 1g/NS 100mL IVPB (Meropenem 1g/Ns 100ml Ivpb) 100 mls @ 100 mls/hr IVPB Q8 [facility] PRN Reason: Protocol Stop: 07/21/16 14:01 Last Admin: 07/10/16 05:25 Dose: 100 mls/hr Heparin Sodium/Sodium Chloride (Heparin 07905 Units/250ml 1/2 Normal Saline) 250 mls @ 19.006 mls/hr IV .[id number] PRN; Protocol; 14.35 UNITS/KG/HR PRN Reason: ADJUST RATE PER PROTOCOL Last Admin: 07/10/16 07:00 Dose: 29.536 mls/hr Dextrose/Sodium Chloride (Dextrose 5%/0.9% Ns 1000 Ml) 1,000 mls @ 50 mls/hr IV .Q20H [facility] Last Admin: 07/09/16 22:38 Dose: 50 mls/hr Daptomycin 800 mg/ Sodium (Chloride) 100 mls @ 200 mls/hr IV Q24H [facility] PRN Reason: Protocol Stop: 08/06/16 16:01 Last Admin: 07/09/16 18:21 Dose: 200 mls/hr Propofol (Diprivan) 100 mls @ 3.987 mls/hr IV .Q24H PRN; Protocol; 5 MCG/KG/MIN PRN Reason: TITRATE PER MD ORDER Last Titration: 07/10/16 08:05 Dose: 20 mcg/kg/min Metoprolol Tartrate (Lopressor) 25 mg PO BID [facility] Last Admin: 07/09/16 11:30 Dose: Not Given Morphine Sulfate (Morphine) 2 mg IVP Q3H PRN PRN Reason: Pain, moderate (4-7) Morphine Sulfate (Morphine) 4 mg IVP Q3H PRN PRN Reason: Pain, severe (8-10) Last Admin: 07/10/16 04:42 Dose: 4 mg Ondansetron HCl (Zofran Inj) 4 mg IVP Q8H PRN PRN Reason: Nausea/Vomiting Last Admin: 07/08/16 07:57 Dose: 4 mg Oxycodone/Acetaminophen (Percocet 5/325 Mg Tab) 1 tab PO Q4 PRN PRN Reason: Pain, Mild (1-3) Stop: 07/10/16 15:56 Last Admin: 07/08/16 05:07 Dose: 1 tab Pantoprazole Sodium (Protonix Inj) 40 mg IVP Q12 [facility] Last Admin: 07/10/16 00:26 Dose: 40 mg - Labs Labs: 07/10/16 05:50 07/10/16 05:50 PT 10.8 Seconds (9.9-11.8) 07/09/16 21:30 INR 1.00 (0.93-1.08) 07/09/16 21:30 APTT 47.9 Seconds (23.7-30.8) H 07/10/16 05:50 - Constitutional Appears: Non-toxic, No Acute Distress - Head Exam Head Exam: ATRAUMATIC, NORMOCEPHALIC - Eye Exam Eye Exam: EOMI, PERRL Pupil Exam: PERRL. absent: Miosis, Mydriatic - ENT Exam ENT Exam: Mucous Membranes Moist, Normal Oropharynx - Neck Exam Neck Exam: Full ROM, Normal Inspection - Respiratory Exam Respiratory Exam: Clear to Ausculation Bilateral. absent: Rales, Rhonchi, Wheezes - GI/Abdominal Exam GI & Abdominal Exam: Distended, Tenderness. absent: Firm, Guarding, Rigid, Rebound Additional comments: hypoactive, high pitched bowel sounds, tinkles, mild improvement in distension and palpation firm to touch - Extremities Exam Extremities Exam: Normal Inspection, Pedal Edema Additional comments: no range of motion - Neurological Exam Neurological Exam: Awake Additional comments: in process of weaning sedation - Psychiatric Exam Additional comments: intubated can not assess - Skin Skin Exam: Dry, Intact, Normal Color, Warm Assessment and Plan - Assessment and Plan (Free Text) Assessment: 51 year old male with history of polysubstance abuse presenting with chest and back pain. Developed bilateral lower extremities motor/sensory deficit complicated by urinary incontinence. 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 CT A/P showing markedly dilated stomach without contrast extravasation to lower GI tract and fecal retention. No prior EGD or colonoscopy. Plan: >DDx: neurogenic bowel dysfunction, paralytic ileus, gastric outlet obstruction >07/09 cardiopulmonary arrest during jose manuel-procedural intubation for EGD >no plan for endoscopic evaluation >optimize cardiopulmonary status >decreased NG output >on heparin drip for RLE DVT >monitor H/H >PPI BID >evaluate rectal sphincter tone >will consider repeat CT A/P in next 24-48 hours to re-evaluate >will benefit from oral bowel regimen/prokinetics/high fiber diet if bowel function shows no improvement <Daniel Vazquez - Last Filed: 07/10/16 12:09> Objective - Vital Signs/Intake and Output Vital Signs (last 24 hours): Temp Pulse Resp BP Pulse Ox 98.1 F 68 22 149/67 96 07/10/16 08:24 07/10/16 08:24 07/10/16 08:24 07/10/16 08:24 07/10/16 08:24 Intake and Output: 07/10/16 07/10/16 06:59 18:59 Intake Total 1060 Output Total 800 Balance 260 - Medications Medications: Current Medications Bacitracin (Bacitracin) 1 ea TOP DAILY [facility] Last Admin: 07/10/16 11:31 Dose: 1 ea Hydralazine HCl (Apresoline) 10 mg IVP Q6 PRN PRN Reason: FOR SBP>170 & Diastolic>100 Meropenem 1g/NS 100mL IVPB (Meropenem 1g/Ns 100ml Ivpb) 100 mls @ 100 mls/hr IVPB Q8 [facility] PRN Reason: Protocol Stop: 07/21/16 14:01 Last Admin: 07/10/16 05:25 Dose: 100 mls/hr Heparin Sodium/Sodium Chloride (Heparin 20527 Units/250ml 1/2 Normal Saline) 250 mls @ 19.006 mls/hr IV .[id number] PRN; Protocol; 14.35 UNITS/KG/HR PRN Reason: ADJUST RATE PER PROTOCOL Last Admin: 07/10/16 07:00 Dose: 29.536 mls/hr Dextrose/Sodium Chloride (Dextrose 5%/0.9% Ns 1000 Ml) 1,000 mls @ 50 mls/hr IV .Q20H [facility] Last Admin: 07/09/16 22:38 Dose: 50 mls/hr Daptomycin 800 mg/ Sodium (Chloride) 100 mls @ 200 mls/hr IV Q24H [facility] PRN Reason: Protocol Stop: 08/06/16 16:01 Last Admin: 07/09/16 18:21 Dose: 200 mls/hr Propofol (Diprivan) 100 mls @ 3.987 mls/hr IV .Q24H PRN; Protocol; 5 MCG/KG/MIN PRN Reason: TITRATE PER MD ORDER Last Titration: 07/10/16 08:05 Dose: 20 mcg/kg/min Metoprolol Tartrate (Lopressor) 25 mg PO BID [facility] Last Admin: 07/09/16 11:30 Dose: Not Given Morphine Sulfate (Morphine) 2 mg IVP Q3H PRN PRN Reason: Pain, moderate (4-7) Morphine Sulfate (Morphine) 4 mg IVP Q3H PRN PRN Reason: Pain, severe (8-10) Last Admin: 07/10/16 11:31 Dose: 4 mg Ondansetron HCl (Zofran Inj) 4 mg IVP Q8H PRN PRN Reason: Nausea/Vomiting Last Admin: 07/08/16 07:57 Dose: 4 mg Oxycodone/Acetaminophen (Percocet 5/325 Mg Tab) 1 tab PO Q4 PRN PRN Reason: Pain, Mild (1-3) Stop: 07/10/16 15:56 Last Admin: 07/08/16 05:07 Dose: 1 tab Pantoprazole Sodium (Protonix Inj) 40 mg IVP Q12 [facility] Last Admin: 07/10/16 11:31 Dose: 40 mg - Labs Labs: 07/10/16 05:50 07/10/16 05:50 PT 10.8 Seconds (9.9-11.8) 07/09/16 21:30 INR 1.00 (0.93-1.08) 07/09/16 21:30 APTT 47.9 Seconds (23.7-30.8) H 07/10/16 05:50 Attending/Attestation - Attestation I have personally seen and examined this patient.: Yes I have fully participated in the care of the patient.: Yes I have reviewed all pertinent clinical information, including history, physical exam and plan: Yes Notes (Text): Patient seen and examined with GI fellow. Agree with her note as documented above with the following additions/exceptions. This is a 51 year old male with history of polysubstance abuse admitted with epidural abscess/spinal cord compression s/p decompressive laminectomy T2-4 with gastric outlet obstruction, possible paralytic ileus. EGD aborted yesterday after brief PEA arrest with ROSC. He remains in ICU intubated on CPAP trial. He is responsive, unable to move lower extremities. NGT with minimal output. Still with abdominal distension. Recommend PPI, monitor NGT output. Consider repeat CT a/p pending clinical course. Will hold on EGD evaluation until clinically improved. Continue antibiotics as per infectious disease. Discussed with ICU team. 07/10/16 12:06
[2016-07-10 10:53] LABS: ALBUMIN (PEP) 2.7 g/dL (3.8-4.8); ALPHA-1-GLOBULIN (PEP) 0.5 g/dL (0.2-0.3)
[2016-07-10] MEDS: Bacitracin 500 Units/gm Oint Foilpak UD TOP SCH (11:31)
--- NOTE | 2016-07-10 13:03 | CP.CCUPN ---
<Uzma Abbott - Last Filed: 07/10/16 13:25> CCU Subjective - Physician Review Subjective (Free Text): 07/09/16 08:28 Increased pain regimen ROSELYN output - 20cc sanguinous overnight. ROSELYN was pulled Mackenzie output - 1000cc overnight NG output - 190 black overnight 07/10/16 13:00 Last night, pt had cardiopulmonary arrest during jose manuel-procedural intubation for EGD. He became increasingly hypoxic during intubation and developed PEA. ACLS initiated. Chest compressions started. Received one dose of epinephrine. ROSC in 1 minute. Then, he had a brief NSVT after epi. Patient stabilized and transported back to ICU. 2 dark mucoid bowel movement overnight. At 11:00 today, Pt extubated. Negative edematous airway due to (+) cuff leak 07/10/16 13:11 CCU Objective - Vital Signs / Intake & Output Intake and Output (Last 8hrs): Intake & Output 07/09/16 07/10/16 07/10/16 22:59 06:59 14:59 Intake Total 950 1060 Output Total 950 800 Balance 0 260 Intake: IV 950 860 Right Antecubital 260 Right Hand 950 600 Albumin 200 Output: Urine 950 800 Urethral (Mackenzie) 950 800 Other: Voiding Method Indwelling Catheter Indwelling Catheter - Physical Exam Head: Positive for: Atraumatic, Normocephalic Pupils: Positive for: PERRL Extroacular Muscles: Positive for: EOMI Conjunctiva: Positive for: Normal Mouth: Positive for: Moist Mucous Membranes, Other (NGT in place) Neck: Positive for: Trachea Midline. Negative for: Meningeal Signs Respiratory/Chest: Positive for: Clear to Auscultation, Other (Course bronchial- vesicular sound both inhale and exhale). Negative for: Respiratory Distress, Accessory Muscle Use, Rales, Retracting, Rhonchi Cardiovascular: Positive for: Regular Rate and Rhythm, Normal S1, S2. Negative for: Murmurs Abdomen: Positive for: Distention, Other (obese, No sensation of T5 and down). Negative for: Tenderness, Normal Bowel Sounds (hypoactive ), Peritoneal Signs Back: Positive for: Midline Tenderness (At surgical site). Negative for: Pain with Leg Raise Upper Extremity: Positive for: Normal Inspection. Negative for: Cyanosis, Edema Lower Extremity: Positive for: Edema, NORMAL PULSES, Other (No sensory and motor ) Neurological: Positive for: GCS=15, CN II-XII Intact, Speech Normal (Voice coarse s/p intubation) Skin: Positive for: Warm, Dry, Normal Color. Negative for: Rashes Psychiatric: Positive for: Alert, Oriented x 3, Normal Insight, Normal Concentration - Medications Active Medications: Active Medications Generic Name Dose Route Start Last Admin Trade Name Freq PRN Reason Stop Dose Admin Bacitracin 1 ea 07/09/16 10:00 07/10/16 11:31 Bacitracin TOP 1 ea DAILY DONAL Administration Hydralazine HCl 10 mg 07/07/16 17:14 Apresoline IVP Q6 PRN FOR SBP>170 & Diastolic>100 Meropenem 1g/NS 100mL IVPB 100 mls @ 100 mls/hr 07/07/16 14:00 07/10/16 05:25 Meropenem 1g/Ns 100ml Ivpb IVPB 07/21/16 14:01 100 mls/hr Q8 DONAL Administration Protocol Heparin Sodium/Sodium Chloride 250 mls @ 19.006 mls/hr 07/07/16 18:20 07/10/16 07:00 Heparin 71644 Units/250ml 1/2 Normal Saline IV 29.536 mls/hr .[id number] PRN Administration ADJUST RATE PER PROTOCOL Protocol 14.35 UNITS/KG/HR Dextrose/Sodium Chloride 1,000 mls @ 50 mls/hr 07/08/16 12:51 07/09/16 22:38 Dextrose 5%/0.9% Ns 1000 Ml IV 50 mls/hr .Q20H DONAL Administration Daptomycin 800 mg/ Sodium 100 mls @ 200 mls/hr 07/09/16 16:00 07/09/16 18:21 Chloride IV 08/06/16 16:01 200 mls/hr Q24H DONAL Administration Protocol Metoprolol Tartrate 25 mg 07/08/16 11:25 07/09/16 11:30 Lopressor PO Not Given BID DONAL Morphine Sulfate 2 mg 07/09/16 07:18 Morphine IVP Q3H PRN Pain, moderate (4-7) Morphine Sulfate 4 mg 07/10/16 00:26 07/10/16 11:31 Morphine IVP 4 mg Q3H PRN Administration Pain, severe (8-10) Ondansetron HCl 4 mg 07/08/16 07:30 07/08/16 07:57 Zofran Inj IVP 4 mg Q8H PRN Administration Nausea/Vomiting Oxycodone/Acetaminophen 1 tab 07/07/16 15:55 07/08/16 05:07 Percocet 5/325 Mg Tab PO 07/10/16 15:56 1 tab Q4 PRN Administration Pain, Mild (1-3) Pantoprazole Sodium 40 mg 07/08/16 22:00 07/10/16 11:31 Protonix Inj IVP 40 mg Q12 DONAL Administration - Patient Studies Lab Studies: Microbiology Studies 07/07/16 15:25 Gram Stain - Final Other: Please Indicate Anaerobic Culture - Final NO ANAEROBES ISOLATED. Wound Culture - Preliminary Streptococcus Pneumoniae 07/07/16 15:25 Gram Stain - Final Other: Please Indicate Body Fluid Culture - Preliminary Streptococcus Pneumoniae 07/07/16 17:10 MRSA Culture (Admit) - Final Nose MRSA NOT DETECTED Lab Studies 07/10/16 07/10/16 07/10/16 Range/Units 07:20 05:50 01:20 WBC 9.6 D (4.5-11.0) 10^3/ul RBC 3.50 (3.5-6.1) 10^6/uL Hgb 10.8 L (14.0-18.0) gm/dL Hct 32.2 L (42.0-52.0) % MCV 92.0 (80.0-105.0) fL MCH 30.9 (25.0-35.0) pg MCHC 33.5 (31.0-37.0) g/dl RDW 13.4 (11.5-14.5) % Plt Count 200 (120.0-450.0) 10^3/uL MPV 11.5 H (7.0-11.0) fl Gran % 71.8 H (50.0-68.0) % Lymph % (Auto) 16.8 L (22.0-35.0) % Creek % (Auto) 10.7 H (1.0-6.0) % Eos % (Auto) 0.5 L (1.5-5.0) % Baso % (Auto) 0.2 (0.0-3.0) % Gran # 6.91 H (1.4-6.5) Lymph # 1.6 (1.2-3.4) Creek # 1.0 H (0.1-0.6) Eos # 0.1 (0.0-0.7) Baso # 0.02 (0.0-2.0) K/mm3 PT (9.9-11.8) Seconds INR (0.93-1.08) APTT 47.9 H (23.7-30.8) Seconds pCO2 39 39 (35-45) mm/Hg pO2 74.0 L 162.0 H (80-100) mm/Hg HCO3 27.7 25.3 (21-28) mmol/L ABG pH 7.46 H 7.42 (7.35-7.45) ABG Total CO2 28.9 H 26.5 (22-28) mmol.L ABG O2 Saturation 96.4 98.5 H (95-98) % ABG O2 Content 14.5 L (15-23) ML/dl ABG Base Excess 3.6 H 0.8 (-2.0-3.0) mmol/L ABG Hemoglobin 10.8 L (11.7-17.4) g/dL ABG Carboxyhemoglobin 1.0 (0.5-1.5) % POC ABG HHb (Measured) 3.5 (0-5) % ABG Methemoglobin 0.7 (0.0-3.0) % ABG O2 Capacity 15.0 L (16-24) mL/dl ABG Potassium 3.4 L (3.6-5.2) mmol/L Hgb O2 Saturation 94.9 L (95.0-98.0) % Glucose 89 (75-110) mg/dl Lactate 0.5 L (0.7-2.1) mmol/L FiO2 40.0 60.0 % Sodium 139 141.0 (132-148) mmol/L Potassium 4.0 (3.6-5.0) mmol/L Chloride 105 113.0 H (98-107) mmol/L Carbon Dioxide 26 (21-33) mmol/L Anion Gap 12 (10-20) BUN 22 H (7-21) mg/dL Creatinine 0.7 (0.5-1.4) mg/dL Est GFR ( Amer) > 60 Est GFR (Non-Af Amer) > 60 Random Glucose 97 (70-110) mg/dL Calcium 8.2 L (8.4-10.5) mg/dL Phosphorus (2.5-4.5) mg/dL Magnesium (1.7-2.2) mg/dL Total Bilirubin 0.4 (0.2-1.3) mg/dL AST 64 H (15-59) U/L ALT 79 H (7-56) U/L Alkaline Phosphatase 54 (38-133) U/L Total Protein 6.6 (5.8-8.3) g/dL Total Protein (PEP) (6.1-8.1) g/dL Albumin 3.1 (3.0-4.8) g/dL Albumin (PEP) (3.8-4.8) g/dL Globulin 3.5 gm/dL Albumin/Globulin Ratio 0.9 L (1.1-1.8) Ayyud-0-Taosldavg (0.2-0.3) g/dL Kgyvk-9-Zuajadymx (0.5-0.9) g/dL Kpex-2-Lxxawith (0.4-0.6) g/dL Aljj-3-Uwvkmvuy (0.2-0.5) g/dL Gamma Globulins (0.8-1.7) g/dL Abnorm Protein Band 1 Abnorm Protein Band 2 Abnorm Protein Band 3 Arterial Blood Potassium 3.4 L (3.6-5.2) mmol/L Stool Occult Blood (NEGATIVE) KAY & SPEP Interp (()) 07/09/16 07/09/16 07/09/16 Range/Units 21:45 21:30 05:40 WBC 12.3 H D (4.5-11.0) 10^3/ul RBC 3.79 (3.5-6.1) 10^6/uL Hgb 11.7 L (14.0-18.0) gm/dL Hct 35.0 L (42.0-52.0) % MCV 92.3 (80.0-105.0) fL MCH 30.9 (25.0-35.0) pg MCHC 33.4 (31.0-37.0) g/dl RDW 13.3 (11.5-14.5) % Plt Count 206 (120.0-450.0) 10^3/uL MPV 11.3 H (7.0-11.0) fl Gran % 84.4 H (50.0-68.0) % Lymph % (Auto) 6.6 L (22.0-35.0) % Creek % (Auto) 8.7 H (1.0-6.0) % Eos % (Auto) 0.2 L (1.5-5.0) % Baso % (Auto) 0.1 (0.0-3.0) % Gran # 10.41 H (1.4-6.5) Lymph # 0.8 L (1.2-3.4) Creek # 1.1 H (0.1-0.6) Eos # 0.0 (0.0-0.7) Baso # 0.01 (0.0-2.0) K/mm3 PT 10.8 (9.9-11.8) Seconds INR 1.00 (0.93-1.08) APTT 27.1 (23.7-30.8) Seconds pCO2 (35-45) mm/Hg pO2 (80-100) mm/Hg HCO3 (21-28) mmol/L ABG pH (7.35-7.45) ABG Total CO2 (22-28) mmol.L ABG O2 Saturation (95-98) % ABG O2 Content (15-23) ML/dl ABG Base Excess (-2.0-3.0) mmol/L ABG Hemoglobin (11.7-17.4) g/dL ABG Carboxyhemoglobin (0.5-1.5) % POC ABG HHb (Measured) (0-5) % ABG Methemoglobin (0.0-3.0) % ABG O2 Capacity (16-24) mL/dl ABG Potassium (3.6-5.2) mmol/L Hgb O2 Saturation (95.0-98.0) % Glucose (75-110) mg/dl Lactate (0.7-2.1) mmol/L FiO2 % Sodium 136 (132-148) mmol/L Potassium 3.9 (3.6-5.0) mmol/L Chloride 103 (98-107) mmol/L Carbon Dioxide 29 (21-33) mmol/L Anion Gap 8 L (10-20) BUN 22 H (7-21) mg/dL Creatinine 0.9 (0.5-1.4) mg/dL Est GFR ( Amer) > 60 Est GFR (Non-Af Amer) > 60 Random Glucose 171 H (70-110) mg/dL Calcium 8.5 (8.4-10.5) mg/dL Phosphorus 3.1 (2.5-4.5) mg/dL Magnesium 2.4 H (1.7-2.2) mg/dL Total Bilirubin 0.5 (0.2-1.3) mg/dL AST 101 H (15-59) U/L ALT 84 H (7-56) U/L Alkaline Phosphatase 55 (38-133) U/L Total Protein 7.0 (5.8-8.3) g/dL Total Protein (PEP) 5.9 L (6.1-8.1) g/dL Albumin 3.3 (3.0-4.8) g/dL Albumin (PEP) 2.7 L (3.8-4.8) g/dL Globulin 3.7 gm/dL Albumin/Globulin Ratio 0.9 L (1.1-1.8) Sanre-1-Xlgcojpye 0.5 H (0.2-0.3) g/dL Gqjos-8-Wshupoccl 0.9 (0.5-0.9) g/dL Rjqp-1-Beyjprzt 0.4 (0.4-0.6) g/dL Gheb-1-Wibcuhss 0.4 (0.2-0.5) g/dL Gamma Globulins 1.0 (0.8-1.7) g/dL Abnorm Protein Band 1 TEST NOT PERFORMED Abnorm Protein Band 2 TEST NOT PERFORMED Abnorm Protein Band 3 TEST NOT PERFORMED Arterial Blood Potassium (3.6-5.2) mmol/L Stool Occult Blood Positive H (NEGATIVE) KAY & SPEP Interp See note (()) Laboratory Results - last 24 hr 07/09/16 07/09/16 07/09/16 05:40 21:30 21:45 WBC 12.3 H D RBC 3.79 Hgb 11.7 L Hct 35.0 L MCV 92.3 MCH 30.9 MCHC 33.4 RDW 13.3 Plt Count 206 MPV 11.3 H Gran % 84.4 H Lymph % (Auto) 6.6 L Creek % (Auto) 8.7 H Eos % (Auto) 0.2 L Baso % (Auto) 0.1 Gran # 10.41 H Lymph # 0.8 L Creek # 1.1 H Eos # 0.0 Baso # 0.01 PT 10.8 INR 1.00 APTT 27.1 pCO2 pO2 HCO3 ABG pH ABG Total CO2 ABG O2 Saturation ABG O2 Content ABG Base Excess ABG Hemoglobin ABG Carboxyhemoglobin POC ABG HHb (Measured) ABG Methemoglobin ABG O2 Capacity ABG Potassium Hgb O2 Saturation Glucose Lactate FiO2 Sodium 136 Potassium 3.9 Chloride 103 Carbon Dioxide 29 Anion Gap 8 L BUN 22 H Creatinine 0.9 Est GFR ( Amer) > 60 Est GFR (Non-Af Amer) > 60 Random Glucose 171 H Calcium 8.5 Phosphorus 3.1 Magnesium 2.4 H Total Bilirubin 0.5 AST 101 H ALT 84 H Alkaline Phosphatase 55 Total Protein 7.0 Total Protein (PEP) 5.9 L Albumin 3.3 Albumin (PEP) 2.7 L Globulin 3.7 Albumin/Globulin Ratio 0.9 L Yrhbk-1-Lshjmjzbf 0.5 H Kwvmp-8-Azkyodlan 0.9 Dkiz-1-Znkfpedb 0.4 Anuy-5-Fywrasnw 0.4 Gamma Globulins 1.0 Abnorm Protein Band 1 TEST NOT PERFORMED Abnorm Protein Band 2 TEST NOT PERFORMED Abnorm Protein Band 3 TEST NOT PERFORMED Arterial Blood Potassium Stool Occult Blood Positive H KAY & SPEP Interp See note 07/10/16 07/10/16 07/10/16 01:20 05:50 07:20 WBC 9.6 D RBC 3.50 Hgb 10.8 L Hct 32.2 L MCV 92.0 MCH 30.9 MCHC 33.5 RDW 13.4 Plt Count 200 MPV 11.5 H Gran % 71.8 H Lymph % (Auto) 16.8 L Creek % (Auto) 10.7 H Eos % (Auto) 0.5 L Baso % (Auto) 0.2 Gran # 6.91 H Lymph # 1.6 Creek # 1.0 H Eos # 0.1 Baso # 0.02 PT INR APTT 47.9 H pCO2 39 39 pO2 162.0 H 74.0 L HCO3 25.3 27.7 ABG pH 7.42 7.46 H ABG Total CO2 26.5 28.9 H ABG O2 Saturation 98.5 H 96.4 ABG O2 Content 14.5 L ABG Base Excess 0.8 3.6 H ABG Hemoglobin 10.8 L ABG Carboxyhemoglobin 1.0 POC ABG HHb (Measured) 3.5 ABG Methemoglobin 0.7 ABG O2 Capacity 15.0 L ABG Potassium 3.4 L Hgb O2 Saturation 94.9 L Glucose 89 Lactate 0.5 L FiO2 60.0 40.0 Sodium 141.0 139 Potassium 4.0 Chloride 113.0 H 105 Carbon Dioxide 26 Anion Gap 12 BUN 22 H Creatinine 0.7 Est GFR ( Amer) > 60 Est GFR (Non-Af Amer) > 60 Random Glucose 97 Calcium 8.2 L Phosphorus Magnesium Total Bilirubin 0.4 AST 64 H ALT 79 H Alkaline Phosphatase 54 Total Protein 6.6 Total Protein (PEP) Albumin 3.1 Albumin (PEP) Globulin 3.5 Albumin/Globulin Ratio 0.9 L Kmvcd-6-Ryrbgnkes Owpbx-8-Vtfimrszo Mrsr-0-Sjfovrlq Arqs-6-Kzydkvrv Gamma Globulins Abnorm Protein Band 1 Abnorm Protein Band 2 Abnorm Protein Band 3 Arterial Blood Potassium 3.4 L Stool Occult Blood KAY & SPEP Interp Critical Care Progress Note - Nutrition Nutrition: Nutrition Category Date Time Status NPO Diet [DIET] Diets 07/09/16 Breakfast Ordered Assessment/Plan - Assessment and Plan (Free Text) Plan: 51 years old obese male, with hx of polysubstance abuse (active smoker, 20pack- yr, alcohol abuse-3 cans a day, snorting cocaine user), has (1) R Leg DVT, (2) lower extremity hemiparesis, and (3) spinal cord compression s/p emergent decompressive laminectomy T2-T4 & fusion. He was started with RLE weakness 1 week ago. Pt last [place] cocaine natividad [place] [facility] [place] became hemiparesis with loss of bladder function due to cord compression vs spinal infarct from cocaine use. He loses sensation from T5. Cord compression is due to anterior epidural mass got infected vs abscess. Purulent pus in Spinal code cultured strep pneumo, suggestive of osteomyelitis and/or diskitis. He is on daptomycine and meropenum. CT c/a/p showed dilated stomach without contrast extravastion to lower GI and fecal retention. Pt developed gastric and abdominal distention. Ddx: Neurogenic bowel dysfunction vs Paralytic ileus vs gsatric outlet obstruction He was found to have R LE DVT. CK 313, old bruises on gluteal region b/l. He was found (+) cocaine. Pt denied trauma or prolonged laying. [place] [facility] [place] no PE, no aortic dissection. Work up on DVT is undergoing, provoked vs unprovoked, malignancy vs inheritary vs immunogenic/connective tissue disease. He is on Lovenox therapeutic dose while bridging coumadin. Held during procedure. Resume heparin drip immediately s/p decompressive laminectomy. Coumadin still on hold. Night of 07/09, pt had cardiopulmonary arrest during jose manuel-procedural intubation for EGD. The purpose of EGD was to r/o obstruction. He became increasingly hypoxic during intubation and developed PEA. ACLS initiated. Chest compressions started. Received one dose of epinephrine. ROSC in 1 minute. Then, he had a brief NSVT after epi. Patient stabilized and transported back to ICU. On 07/10, 11:00 today, Pt extubated. Negative edematous airway due to (+) cuff leak. 2 dark mucoid bowel movements overnight, (+) occult blood in stool. Neuro - s/p emergent decompression laminectomy, T2-T4, POD #3 - ROSELYN pulled - morphine 4q3 PRN, 2q3 PRN, oxycodone 1q4 PRN - Neurock q1 - Aggressive PT/OT - Psych consult for plan for therapist/counseling Cardio - s/p cardiopulmonary arrest on 07/09. - QTc 544 - Atypical chest pain radiating from spinal abscess - resolved - Metoprolol 25 PO BID - on hold for now - hydralazine 10q6 PRN - Echocardiogram: (07/08) LVEF 55-60, RVSP 22 - trend H/H Pulm - Extubated on 07/10 - CXR - Moderate to large R pleural effusion; opacity in R lung, infiltrative vs pleural fluid; already on meropenem - bipap HS // titrate to above 95% - inspiration spirometry 10 every hour GI - NGT on ILS - NPO,D5/NS @ 50 - Repeat CT A/P in 24-48 hours - During first few months of spinal cord injury, 10% risk of upper GI bleed, appendicitis, cholecysticis, pancreatitis. - PPI IV q12 - May need bowel regimen and/or short-term prokinetics agent/high fiber diet, depending on clinical course. Consider Miralax. - Goal of feeding: GI Recommends small frequent meal of regular consistency. Not a candidate for PEG tube. Nephro - on Mackenzie. U/O adequate - Consider Supra-pubic catheter for neurogenic bladder Endo - A1C 6.3 - maintain euglycemic Heme - ForR LE DVT, heparin on hold. heparin drip based ht and age (ideal body wt), goal PTT 45-55. Primary team plans to transit to lovenox BID bridging coumadin - Consult IR for IVC filter placement - Hypercoagulable workup - pending Antithrombin III activity, factor V mutation , Lupus anticoags, protein C/S activity - Normocytic anemia, 400 cc blood loss during laminectomy, coffee-ground NG output Infectious - No fever/No leukocytosis - Meropenem, vancomycin. Vanco trough is low today - Epidural abscess; Pus and surrounding fluid grows streptococcus Pneumonia. Vanco sensitive. No anaerobes. - No grown blood culture x 48 hrs - Echocardiogram (TTE) has ruled out endocarditis - CT chest/Abd/Pelvis with PO and IV contrast unremarkable for cancer, paraneoplastic, or hidden abscess - HIV, Hepatitis panel negative - skin care and reposition regularly Prophylaxis - Heparin drip - held for EGD - Protonix high dose Prognosis - Per Neurosurgery: Prognosis, not good as pt not regaining any function thus far post-op. Recovery outcome may vary per individual. Individual nerve regeneration may take 12-18 months. Disposition - Likely need long-term rehab and care. 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 - POA choice tomorrow - Daily dressing changes S/R/D/w Dr. Audelia Marc - Date & Time Date: 07/10/16 Time: 12:07 <Tari GUTIERREZ,Cecy H - Last Filed: 07/10/16 13:55> CCU Objective - Vital Signs / Intake & Output Intake and Output (Last 8hrs): Intake & Output 07/09/16 07/10/16 07/10/16 22:59 06:59 14:59 Intake Total 950 1060 Output Total 950 800 Balance 0 260 Intake: IV 950 860 Right Antecubital 260 Right Hand 950 600 Albumin 200 Output: Urine 950 800 Urethral (Mackenzie) 950 800 Other: Voiding Method Indwelling Catheter Indwelling Catheter - Medications Active Medications: Active Medications Generic Name Dose Route Start Last Admin Trade Name Freq PRN Reason Stop Dose Admin Bacitracin 1 ea 07/09/16 10:00 07/10/16 11:31 Bacitracin TOP 1 ea DAILY DONAL Administration Hydralazine HCl 10 mg 07/07/16 17:14 Apresoline IVP Q6 PRN FOR SBP>170 & Diastolic>100 Meropenem 1g/NS 100mL IVPB 100 mls @ 100 mls/hr 07/07/16 14:00 07/10/16 05:25 Meropenem 1g/Ns 100ml Ivpb IVPB 07/21/16 14:01 100 mls/hr Q8 DONAL Administration Protocol Heparin Sodium/Sodium Chloride 250 mls @ 19.006 mls/hr 07/07/16 18:20 07/10/16 07:00 Heparin 40528 Units/250ml 1/2 Normal Saline IV 29.536 mls/hr .[id number] PRN Administration ADJUST RATE PER PROTOCOL Protocol 14.35 UNITS/KG/HR Dextrose/Sodium Chloride 1,000 mls @ 50 mls/hr 07/08/16 12:51 07/09/16 22:38 Dextrose 5%/0.9% Ns 1000 Ml IV 50 mls/hr .Q20H DONAL Administration Daptomycin 800 mg/ Sodium 100 mls @ 200 mls/hr 07/09/16 16:00 07/09/16 18:21 Chloride IV 08/06/16 16:01 200 mls/hr Q24H DONAL Administration Protocol Metoprolol Tartrate 25 mg 07/08/16 11:25 07/09/16 11:30 Lopressor PO Not Given BID DONAL Morphine Sulfate 2 mg 07/09/16 07:18 Morphine IVP Q3H PRN Pain, moderate (4-7) Morphine Sulfate 4 mg 07/10/16 00:26 07/10/16 11:31 Morphine IVP 4 mg Q3H PRN Administration Pain, severe (8-10) Ondansetron HCl 4 mg 07/08/16 07:30 07/08/16 07:57 Zofran Inj IVP 4 mg Q8H PRN Administration Nausea/Vomiting Oxycodone/Acetaminophen 1 tab 07/07/16 15:55 07/08/16 05:07 Percocet 5/325 Mg Tab PO 07/10/16 15:56 1 tab Q4 PRN Administration Pain, Mild (1-3) Pantoprazole Sodium 40 mg 07/08/16 22:00 07/10/16 11:31 Protonix Inj IVP 40 mg Q12 DONAL Administration - Patient Studies Lab Studies: Microbiology Studies 07/07/16 15:25 Gram Stain - Final Other: Please Indicate Anaerobic Culture - Final NO ANAEROBES ISOLATED. Wound Culture - Preliminary Streptococcus Pneumoniae 07/07/16 15:25 Gram Stain - Final Other: Please Indicate Body Fluid Culture - Preliminary Streptococcus Pneumoniae 07/07/16 17:10 MRSA Culture (Admit) - Final Nose MRSA NOT DETECTED Lab Studies 07/10/16 07/10/16 07/10/16 Range/Units 07:20 05:50 01:20 WBC 9.6 D (4.5-11.0) 10^3/ul RBC 3.50 (3.5-6.1) 10^6/uL Hgb 10.8 L (14.0-18.0) gm/dL Hct 32.2 L (42.0-52.0) % MCV 92.0 (80.0-105.0) fL MCH 30.9 (25.0-35.0) pg MCHC 33.5 (31.0-37.0) g/dl RDW 13.4 (11.5-14.5) % Plt Count 200 (120.0-450.0) 10^3/uL MPV 11.5 H (7.0-11.0) fl Gran % 71.8 H (50.0-68.0) % Lymph % (Auto) 16.8 L (22.0-35.0) % Creek % (Auto) 10.7 H (1.0-6.0) % Eos % (Auto) 0.5 L (1.5-5.0) % Baso % (Auto) 0.2 (0.0-3.0) % Gran # 6.91 H (1.4-6.5) Lymph # 1.6 (1.2-3.4) Creek # 1.0 H (0.1-0.6) Eos # 0.1 (0.0-0.7) Baso # 0.02 (0.0-2.0) K/mm3 PT (9.9-11.8) Seconds INR (0.93-1.08) APTT 47.9 H (23.7-30.8) Seconds pCO2 39 39 (35-45) mm/Hg pO2 74.0 L 162.0 H (80-100) mm/Hg HCO3 27.7 25.3 (21-28) mmol/L ABG pH 7.46 H 7.42 (7.35-7.45) ABG Total CO2 28.9 H 26.5 (22-28) mmol.L ABG O2 Saturation 96.4 98.5 H (95-98) % ABG O2 Content 14.5 L (15-23) ML/dl ABG Base Excess 3.6 H 0.8 (-2.0-3.0) mmol/L ABG Hemoglobin 10.8 L (11.7-17.4) g/dL ABG Carboxyhemoglobin 1.0 (0.5-1.5) % POC ABG HHb (Measured) 3.5 (0-5) % ABG Methemoglobin 0.7 (0.0-3.0) % ABG O2 Capacity 15.0 L (16-24) mL/dl ABG Potassium 3.4 L (3.6-5.2) mmol/L Hgb O2 Saturation 94.9 L (95.0-98.0) % Glucose 89 (75-110) mg/dl Lactate 0.5 L (0.7-2.1) mmol/L FiO2 40.0 60.0 % Sodium 139 141.0 (132-148) mmol/L Potassium 4.0 (3.6-5.0) mmol/L Chloride 105 113.0 H (98-107) mmol/L Carbon Dioxide 26 (21-33) mmol/L Anion Gap 12 (10-20) BUN 22 H (7-21) mg/dL Creatinine 0.7 (0.5-1.4) mg/dL Est GFR ( Amer) > 60 Est GFR (Non-Af Amer) > 60 Random Glucose 97 (70-110) mg/dL Calcium 8.2 L (8.4-10.5) mg/dL Phosphorus (2.5-4.5) mg/dL Magnesium (1.7-2.2) mg/dL Total Bilirubin 0.4 (0.2-1.3) mg/dL AST 64 H (15-59) U/L ALT 79 H (7-56) U/L Alkaline Phosphatase 54 (38-133) U/L Total Protein 6.6 (5.8-8.3) g/dL Total Protein (PEP) (6.1-8.1) g/dL Albumin 3.1 (3.0-4.8) g/dL Albumin (PEP) (3.8-4.8) g/dL Globulin 3.5 gm/dL Albumin/Globulin Ratio 0.9 L (1.1-1.8) Rmwdy-6-Sbajtprte (0.2-0.3) g/dL Kxhnp-7-Ykpaanjsm (0.5-0.9) g/dL Otba-5-Kgfddrrp (0.4-0.6) g/dL Ngvu-3-Uddifpaq (0.2-0.5) g/dL Gamma Globulins (0.8-1.7) g/dL Abnorm Protein Band 1 Abnorm Protein Band 2 Abnorm Protein Band 3 Arterial Blood Potassium 3.4 L (3.6-5.2) mmol/L Stool Occult Blood (NEGATIVE) KAY & SPEP Interp (()) 07/09/16 07/09/16 07/09/16 Range/Units 21:45 21:30 05:40 WBC 12.3 H D (4.5-11.0) 10^3/ul RBC 3.79 (3.5-6.1) 10^6/uL Hgb 11.7 L (14.0-18.0) gm/dL Hct 35.0 L (42.0-52.0) % MCV 92.3 (80.0-105.0) fL MCH 30.9 (25.0-35.0) pg MCHC 33.4 (31.0-37.0) g/dl RDW 13.3 (11.5-14.5) % Plt Count 206 (120.0-450.0) 10^3/uL MPV 11.3 H (7.0-11.0) fl Gran % 84.4 H (50.0-68.0) % Lymph % (Auto) 6.6 L (22.0-35.0) % Creek % (Auto) 8.7 H (1.0-6.0) % Eos % (Auto) 0.2 L (1.5-5.0) % Baso % (Auto) 0.1 (0.0-3.0) % Gran # 10.41 H (1.4-6.5) Lymph # 0.8 L (1.2-3.4) Creek # 1.1 H (0.1-0.6) Eos # 0.0 (0.0-0.7) Baso # 0.01 (0.0-2.0) K/mm3 PT 10.8 (9.9-11.8) Seconds INR 1.00 (0.93-1.08) APTT 27.1 (23.7-30.8) Seconds pCO2 (35-45) mm/Hg pO2 (80-100) mm/Hg HCO3 (21-28) mmol/L ABG pH (7.35-7.45) ABG Total CO2 (22-28) mmol.L ABG O2 Saturation (95-98) % ABG O2 Content (15-23) ML/dl ABG Base Excess (-2.0-3.0) mmol/L ABG Hemoglobin (11.7-17.4) g/dL ABG Carboxyhemoglobin (0.5-1.5) % POC ABG HHb (Measured) (0-5) % ABG Methemoglobin (0.0-3.0) % ABG O2 Capacity (16-24) mL/dl ABG Potassium (3.6-5.2) mmol/L Hgb O2 Saturation (95.0-98.0) % Glucose (75-110) mg/dl Lactate (0.7-2.1) mmol/L FiO2 % Sodium 136 (132-148) mmol/L Potassium 3.9 (3.6-5.0) mmol/L Chloride 103 (98-107) mmol/L Carbon Dioxide 29 (21-33) mmol/L Anion Gap 8 L (10-20) BUN 22 H (7-21) mg/dL Creatinine 0.9 (0.5-1.4) mg/dL Est GFR ( Amer) > 60 Est GFR (Non-Af Amer) > 60 Random Glucose 171 H (70-110) mg/dL Calcium 8.5 (8.4-10.5) mg/dL Phosphorus 3.1 (2.5-4.5) mg/dL Magnesium 2.4 H (1.7-2.2) mg/dL Total Bilirubin 0.5 (0.2-1.3) mg/dL AST 101 H (15-59) U/L ALT 84 H (7-56) U/L Alkaline Phosphatase 55 (38-133) U/L Total Protein 7.0 (5.8-8.3) g/dL Total Protein (PEP) 5.9 L (6.1-8.1) g/dL Albumin 3.3 (3.0-4.8) g/dL Albumin (PEP) 2.7 L (3.8-4.8) g/dL Globulin 3.7 gm/dL Albumin/Globulin Ratio 0.9 L (1.1-1.8) Xlais-8-Aixrfpbac 0.5 H (0.2-0.3) g/dL Peqhj-4-Ficwsueuw 0.9 (0.5-0.9) g/dL Cwrn-0-Fpgfywvn 0.4 (0.4-0.6) g/dL Swmk-3-Mpyllghc 0.4 (0.2-0.5) g/dL Gamma Globulins 1.0 (0.8-1.7) g/dL Abnorm Protein Band 1 TEST NOT PERFORMED Abnorm Protein Band 2 TEST NOT PERFORMED Abnorm Protein Band 3 TEST NOT PERFORMED Arterial Blood Potassium (3.6-5.2) mmol/L Stool Occult Blood Positive H (NEGATIVE) KAY & SPEP Interp See note (()) Laboratory Results - last 24 hr 07/09/16 07/09/16 07/09/16 05:40 21:30 21:45 WBC 12.3 H D RBC 3.79 Hgb 11.7 L Hct 35.0 L MCV 92.3 MCH 30.9 MCHC 33.4 RDW 13.3 Plt Count 206 MPV 11.3 H Gran % 84.4 H Lymph % (Auto) 6.6 L Creek % (Auto) 8.7 H Eos % (Auto) 0.2 L Baso % (Auto) 0.1 Gran # 10.41 H Lymph # 0.8 L Creek # 1.1 H Eos # 0.0 Baso # 0.01 PT 10.8 INR 1.00 APTT 27.1 pCO2 pO2 HCO3 ABG pH ABG Total CO2 ABG O2 Saturation ABG O2 Content ABG Base Excess ABG Hemoglobin ABG Carboxyhemoglobin POC ABG HHb (Measured) ABG Methemoglobin ABG O2 Capacity ABG Potassium Hgb O2 Saturation Glucose Lactate FiO2 Sodium 136 Potassium 3.9 Chloride 103 Carbon Dioxide 29 Anion Gap 8 L BUN 22 H Creatinine 0.9 Est GFR ( Amer) > 60 Est GFR (Non-Af Amer) > 60 Random Glucose 171 H Calcium 8.5 Phosphorus 3.1 Magnesium 2.4 H Total Bilirubin 0.5 AST 101 H ALT 84 H Alkaline Phosphatase 55 Total Protein 7.0 Total Protein (PEP) 5.9 L Albumin 3.3 Albumin (PEP) 2.7 L Globulin 3.7 Albumin/Globulin Ratio 0.9 L Ihvol-7-Jrquzikmf 0.5 H Auykx-9-Mckyinvjm 0.9 Uxjs-1-Bfigltqe 0.4 Nqpn-4-Ymiphgly 0.4 Gamma Globulins 1.0 Abnorm Protein Band 1 TEST NOT PERFORMED Abnorm Protein Band 2 TEST NOT PERFORMED Abnorm Protein Band 3 TEST NOT PERFORMED Arterial Blood Potassium Stool Occult Blood Positive H KAY & SPEP Interp See note 07/10/16 07/10/16 07/10/16 01:20 05:50 07:20 WBC 9.6 D RBC 3.50 Hgb 10.8 L Hct 32.2 L MCV 92.0 MCH 30.9 MCHC 33.5 RDW 13.4 Plt Count 200 MPV 11.5 H Gran % 71.8 H Lymph % (Auto) 16.8 L Creek % (Auto) 10.7 H Eos % (Auto) 0.5 L Baso % (Auto) 0.2 Gran # 6.91 H Lymph # 1.6 Creek # 1.0 H Eos # 0.1 Baso # 0.02 PT INR APTT 47.9 H pCO2 39 39 pO2 162.0 H 74.0 L HCO3 25.3 27.7 ABG pH 7.42 7.46 H ABG Total CO2 26.5 28.9 H ABG O2 Saturation 98.5 H 96.4 ABG O2 Content 14.5 L ABG Base Excess 0.8 3.6 H ABG Hemoglobin 10.8 L ABG Carboxyhemoglobin 1.0 POC ABG HHb (Measured) 3.5 ABG Methemoglobin 0.7 ABG O2 Capacity 15.0 L ABG Potassium 3.4 L Hgb O2 Saturation 94.9 L Glucose 89 Lactate 0.5 L FiO2 60.0 40.0 Sodium 141.0 139 Potassium 4.0 Chloride 113.0 H 105 Carbon Dioxide 26 Anion Gap 12 BUN 22 H Creatinine 0.7 Est GFR ( Amer) > 60 Est GFR (Non-Af Amer) > 60 Random Glucose 97 Calcium 8.2 L Phosphorus Magnesium Total Bilirubin 0.4 AST 64 H ALT 79 H Alkaline Phosphatase 54 Total Protein 6.6 Total Protein (PEP) Albumin 3.1 Albumin (PEP) Globulin 3.5 Albumin/Globulin Ratio 0.9 L Gtjlw-3-Kpffvwkrp Rabch-8-Moiznxjhd Lhlj-3-Lsxzknpw Svhw-5-Dwuuuqga Gamma Globulins Abnorm Protein Band 1 Abnorm Protein Band 2 Abnorm Protein Band 3 Arterial Blood Potassium 3.4 L Stool Occult Blood KAY & SPEP Interp Critical Care Progress Note - Nutrition Nutrition: Nutrition Category Date Time Status NPO Diet [DIET] Diets 07/09/16 Breakfast Ordered Attending/Attestation - Attestation I have personally seen and examined this patient.: Yes I have fully participated in the care of the patient.: Yes I have reviewed all pertinent clinical information: Yes Notes (Text): 07/10/16 13:51 51 y/o M w/ Epidural abscess s/p Laminectomy and drainage w/ ROSELYN drain Pt growing Strep byers sensitive on ABX w/ I.D following Pt has not regained any neurological function below T5 No motor and minimal sensory function is intact. Neurogenic bladder and GUT G.I bleed- noted to have coffee ground 2 day sprior with possible obstruction or slow transit. Was scheduled for EGD yesterday but had unforseen events s/p induction with anesthesia .Pt arrested x 5 min PEA and Intubated. Overnight did well and passed SBT and was extubated . Currently back to original baseline. Lower ext DVT on Heparin ggt - need to monitor for further bleeding and/or HGB drop. Would be a good candidate for IVC placement if he continues to have coffee grounds Needs PT/OT , suprapubic catheter, and pro motility agents/ bowel regimen. poor prognosis. NSg following along. cc time 65 min
--- NOTE | 2016-07-10 15:08 | CP.PCM.PN ---
<EdgardoAmn nisreena - Last Filed: 07/10/16 15:18> Subjective - Date & Time of Evaluation Date of Evaluation: 07/10/16 Time of Evaluation: 15:05 - Subjective Subjective: HOSPITALIST PROGRESS NOTE Patient seen and examined at bedside. Yesterday, patient was taken for EGD. However, after receiving anesthesia and before the procedure, patient went into arrest x 5 minutes. ACLS was started and 1 dose of epi given. Pulse returned. This morning, patient was intubated during examination but was awake and responsive. Patient's niece is at bedside. Later, ICU team extubated patient. Objective - Vital Signs/Intake and Output Vital Signs (last 24 hours): Temp Pulse Resp BP Pulse Ox 98.1 F 68 22 149/67 96 07/10/16 08:24 07/10/16 08:24 07/10/16 08:24 07/10/16 08:24 07/10/16 08:24 Intake and Output: 07/10/16 07/10/16 06:59 18:59 Intake Total 1060 Output Total 800 Balance 260 - Medications Medications: Current Medications Bacitracin (Bacitracin) 1 ea TOP DAILY [facility] Last Admin: 07/10/16 11:31 Dose: 1 ea Hydralazine HCl (Apresoline) 10 mg IVP Q6 PRN PRN Reason: FOR SBP>170 & Diastolic>100 Meropenem 1g/NS 100mL IVPB (Meropenem 1g/Ns 100ml Ivpb) 100 mls @ 100 mls/hr IVPB Q8 DONAL PRN Reason: Protocol Stop: 07/21/16 14:01 Last Admin: 07/10/16 14:27 Dose: 100 mls/hr Heparin Sodium/Sodium Chloride (Heparin 98848 Units/250ml 1/2 Normal Saline) 250 mls @ 19.006 mls/hr IV .[id number] PRN; Protocol; 14.35 UNITS/KG/HR PRN Reason: ADJUST RATE PER PROTOCOL Last Admin: 07/10/16 07:00 Dose: 29.536 mls/hr Dextrose/Sodium Chloride (Dextrose 5%/0.9% Ns 1000 Ml) 1,000 mls @ 50 mls/hr IV .Q20H [facility] Last Admin: 07/09/16 22:38 Dose: 50 mls/hr Daptomycin 800 mg/ Sodium (Chloride) 100 mls @ 200 mls/hr IV Q24H [facility] PRN Reason: Protocol Stop: 08/06/16 16:01 Last Admin: 07/09/16 18:21 Dose: 200 mls/hr Metoprolol Tartrate (Lopressor) 25 mg PO BID [facility] Last Admin: 07/10/16 10:00 Dose: Not Given Morphine Sulfate (Morphine) 2 mg IVP Q3H PRN PRN Reason: Pain, moderate (4-7) Morphine Sulfate (Morphine) 4 mg IVP Q3H PRN PRN Reason: Pain, severe (8-10) Last Admin: 07/10/16 14:25 Dose: 4 mg Ondansetron HCl (Zofran Inj) 4 mg IVP Q8H PRN PRN Reason: Nausea/Vomiting Last Admin: 07/08/16 07:57 Dose: 4 mg Oxycodone/Acetaminophen (Percocet 5/325 Mg Tab) 1 tab PO Q4 PRN PRN Reason: Pain, Mild (1-3) Stop: 07/10/16 15:56 Last Admin: 07/08/16 05:07 Dose: 1 tab Pantoprazole Sodium (Protonix Inj) 40 mg IVP Q12 [facility] Last Admin: 07/10/16 11:31 Dose: 40 mg - Labs Labs: 07/10/16 05:50 07/10/16 05:50 PT 10.8 Seconds (9.9-11.8) 07/09/16 21:30 INR 1.00 (0.93-1.08) 07/09/16 21:30 APTT 47.9 Seconds (23.7-30.8) H 07/10/16 05:50 - Constitutional Appears: Non-toxic, No Acute Distress - Head Exam Head Exam: ATRAUMATIC - ENT Exam ENT Exam: Mucous Membranes Moist - Respiratory Exam Respiratory Exam: Rhonchi. absent: Rales, Wheezes - Cardiovascular Exam Cardiovascular Exam: REGULAR RHYTHM, +S1, +S2 - GI/Abdominal Exam GI & Abdominal Exam: Distended, Tenderness. absent: Firm, Rigid - Extremities Exam Extremities Exam: absent: Pedal Edema - Neurological Exam Neurological Exam: Alert, Awake, Oriented x3 - Psychiatric Exam Psychiatric exam: Normal Affect, Normal Mood - Skin Skin Exam: Dry, Intact, Normal Color, Warm Assessment and Plan - Assessment and Plan (Free Text) Assessment: 51 year old male with no significant past medical history is s/p T2-T4 lamenectomy POD #3 US of LE showed R LE DVT. Hemeoccult positive. Black fluid draining from NG tube Plan: 1. Acute hypoxic respiratory distress with cardiac arrest - Pt is extubated at this time and stable respiratory status 2. Epidural space abscess s/p lamenectomy T2-T4 POD #3 - Wound cultures grew strep pneumo - Pathology is pending - Will continue antibiotics vanco and meropenem - ROSELYN drain is d/trinity per neurosx recs - CT of chest/abd/pelvis is negative for malignancy -ID is consulted -MRI c/ and w/o contrast on 07/07 prior to procedure showed fluid collection in ventral epidural space from T1-T5 with cord compression and obliteration of subarachinoid space; abnormal signal in T3&T4 which may represent osteomyelitis vs. metastatic dz; no disc herniation, spinal canal stenosis or neuroforaminal narrowing. Lumbar spine MRI was negative for cauda equina. Please see full reports for details. 3. Paralysis in LE - Will continue to monitor - PT/OT - boots are in place and pt is being turned to prevent stress ulcers 4. Neurogenic bowel vs. ileus - GI is consulted. - Heme occult is positive for blood. Will continue to monitor Hgb. 5. Neurogenic bladder - Haque in place - Urology is consulted. 6. R LE DVT - Pt is scheduled for IVC filter today - Pt is on heparin drip and closely monitored for bleeding - Hypercoag workup ordered - Heme consult, Dr. Warren requested. - 07/06 US of LE showed thrombus in right common and proximal femoral vein 7. CP R/O ACS - Cardio is consulted - Echo showed EF of 63.5%, normal LV, trace AR, MR and TR - Hgb A1c is 6.3 8. Anemia - Likely 2/2 acute GI blood loss - Will do iron studies, Vit B12 and folate 9. Prophylaxis - Protonix - heparin drip Case discussed with attending, Dr. Tutu Marc <Tutu Marc - Last Filed: 07/10/16 17:24> Objective - Vital Signs/Intake and Output Vital Signs (last 24 hours): Temp Pulse Resp BP Pulse Ox 98.2 F 73 23 151/69 H 96 07/10/16 16:00 07/10/16 16:33 07/10/16 16:33 07/10/16 16:33 07/10/16 16:33 Intake and Output: 07/10/16 07/10/16 06:59 18:59 Intake Total 1060 Output Total 800 Balance 260 - Medications Medications: Current Medications Bacitracin (Bacitracin) 1 ea TOP DAILY [facility] Last Admin: 07/10/16 11:31 Dose: 1 ea Hydralazine HCl (Apresoline) 10 mg IVP Q6 PRN PRN Reason: FOR SBP>170 & Diastolic>100 Meropenem 1g/NS 100mL IVPB (Meropenem 1g/Ns 100ml Ivpb) 100 mls @ 100 mls/hr IVPB Q8 DONAL PRN Reason: Protocol Stop: 07/21/16 14:01 Last Admin: 07/10/16 14:27 Dose: 100 mls/hr Heparin Sodium/Sodium Chloride (Heparin 95029 Units/250ml 1/2 Normal Saline) 250 mls @ 19.006 mls/hr IV .[id number] PRN; Protocol; 14.35 UNITS/KG/HR PRN Reason: ADJUST RATE PER PROTOCOL Last Admin: 07/10/16 16:24 Dose: 29.536 mls/hr Dextrose/Sodium Chloride (Dextrose 5%/0.9% Ns 1000 Ml) 1,000 mls @ 50 mls/hr IV .Q20H [facility] Last Admin: 07/10/16 16:23 Dose: 50 mls/hr Daptomycin 800 mg/ Sodium (Chloride) 100 mls @ 200 mls/hr IV Q24H DONAL PRN Reason: Protocol Stop: 08/06/16 16:01 Last Admin: 07/09/16 18:21 Dose: 200 mls/hr Metoprolol Tartrate (Lopressor) 25 mg PO BID [facility] Last Admin: 07/10/16 10:00 Dose: Not Given Morphine Sulfate (Morphine) 2 mg IVP Q3H PRN PRN Reason: Pain, moderate (4-7) Morphine Sulfate (Morphine) 4 mg IVP Q3H PRN PRN Reason: Pain, severe (8-10) Last Admin: 07/10/16 14:25 Dose: 4 mg Ondansetron HCl (Zofran Inj) 4 mg IVP Q8H PRN PRN Reason: Nausea/Vomiting Last Admin: 07/08/16 07:57 Dose: 4 mg Pantoprazole Sodium (Protonix Inj) 40 mg IVP Q12 DONAL Last Admin: 07/10/16 11:31 Dose: 40 mg - Labs Labs: 07/10/16 05:50 07/10/16 05:50 PT 10.8 Seconds (9.9-11.8) 07/09/16 21:30 INR 1.00 (0.93-1.08) 07/09/16 21:30 APTT 69.0 Seconds (23.7-30.8) H 07/10/16 15:35 Attending/Attestation - Attestation I have personally seen and examined this patient.: Yes I have fully participated in the care of the patient.: Yes I have reviewed all pertinent clinical information, including history, physical exam and plan: Yes Notes (Text): I have seen and examined patient at bedside. This is 51 year old male with history of substance abuse (snorts cocaine), tobacco, alcohol use who got admitted for evaluation of back pain and found to have epidural abscess T1-T5, urinary retention, acute RLE DVT. He underwent emergent laminectomy and epidural abscess was drained. Wound culture is growing strep pneumonia. He is on vanco and dapto. Blood cultures are negative. HIV negative. He has slight improvement in neurologic function mostly sensory. Need aggressive PT. Last night patient was taken to EGD for evaluation of gastric distention and he coded after anesthesia. He remained intubated overnight and got extubated today. FOBT positive and dark fluid draining from NGT. He has been on heparin drip for acute RLE DVT and is scheduled for IVC filter today. Hypercoagulable work up still pending. CT chest, abdomen and pelvis negative. He has haque catheter for neurogenic bladder. Echo revealed Normal LVEF. Niece is at the bedside. Dr Tutu Marc
[2016-07-10] MEDS: Dextrose 5%/0.9% NS 1,000 ML IV SCH (16:23)
--- NOTE | 2016-07-10 16:24 | PN ---
DATE: 07/10/2016 HISTORY OF PRESENT ILLNESS: The patient is in bed in no acute distress, was seen this morning. The p atient are noted. He was intubated as of this morning. PHYSICAL EXAMINATION: VITAL SIGNS: Temperature is 98, blood pressure is 120/70, respiratory rate of 16. HEENT: Unremarkable. NECK: Supple. LUNGS: Have decreased breath sounds. HEART: Normal S1, S2. ABDOMEN: Soft, nontender. LABORATORY DATA: Reveals a white count of 9.6, hemoglobin of 10, platelets of 200. BUN of 22, creat inine of 0.7. Microbiology reveals the patient has strep pneumonia from the epidural mass culture an d it is sensitive to moxifloxacin, sensitive to ceftriaxone and sensitive to vancomycin, sensitive to Bactrim. It is resistant to erythromycin and 's note is reviewed. ASSESSMENT AND PLAN: This is a 51-year-old male, long time smoker, alcohol abuser, admitted with cor d compression and lower extremity paralysis status post laminectomy with epidural abscess growing str eptococcal pneumonia, osteomyelitis and diskitis, currently on daptomycin and meropenem. We will chec k on the final sensitivity and make further recommendation. The patient was on vancomycin, but becau se of his obesity, unable to reach adequate vancomycin levels. Therefore, he was changed to daptomyc in. Will follow with you. The patient also had a chest x-ray earlier this morning, which reveals a r ight-sided opacity, possible infiltrate versus pleural fluid. We will follow closely with you. Colt Coronel MD cc: [phone] TT: 07/10/2016 16:23:50 Confirmation # [id number] Dictation # [id number]
[2016-07-10] MEDS ORDERED: Lidocaine 2% Inj (20ml) ONE (17:08)
[2016-07-10] MEDS ORDERED: Midazolam 2 MG/2 ML VIAL ONE (17:09)
[2016-07-10] MEDS ORDERED: Iodixanol 320 mg/ml 150 ml Bottle IV ONE ×2 (17:14→17:25)
--- NOTE | 2016-07-10 17:18 | PN ---
DATE: 07/10/2016 REASON FOR CONSULTATION AND FOLLOWUP: Chest pain, cardiac evaluation, status post abscess, DVT, stat us post CPR, status post intubated. BRIEF CLINICAL HISTORY: A 51-year-old male with no significant past medical history admitted with on e week duration of pain radiating from back to the chest so cardiac consult was called. Actually, it was a spinal abscess so the patient was having chest pain radiating to the front. Since, the patien t's abscess was drained, no complaint of further episode of the chest pain noted, but in the course o f hospitalization, the patient was found to have right lower extremity DVT, which was started on hepa rin after clearance from the spinal surgery. During the course of hospitalization, patient also foun d to develop coffee-grounds vomitus, so status post NG tube was placed. Yesterday, patient was being taken to endoscopy suite for endoscopy, but it was a difficult intubation, so patient had intubated and later on, one minute CPR was done and the patient brought back to the ICU. The patient is awake, alert, still being intubated. Denies any chest pain, shortness of breath, any palpitation. PHYSICAL EXAMINATION: As follows: VITAL SIGNS: Temperature afebrile, heart rate 70, blood pressure 140/74. HEENT: PERRLA. Extraocular muscles intact. NECK: Supple. No carotid bruit or thyromegaly. CHEST: Clear to auscultation. HEART: S1, S2 regular. ABDOMEN: Soft. EXTREMITIES: Clubbing and cyanosis negative. BLOOD WORKUP: As follows: WBC 9.6, hemoglobin 10.8, hematocrit 32.2, platelet count 200. Chemistry shows sodium 139, potassium 4, chloride 105, carbon dioxide 26, anion gap of 12, BUN 22, creatinine 0.7, total ____ 6.6, albumin 3.1, albumin/globulin ratio 3.5. IMPRESSION: Status post intubated, status post cardiopulmonary resuscitation, status post cardiopulm onary resuscitation, gastrointestinal bleed, status post spinal abscess drained, status post deep ami ous thrombosis of right lower extremity (right common femoral vein). Obesity. No evidence of myocard ial infarction, chest pain radiating from the spinal abscess, coffee-grounds emesis, nasogastric tube ____, status post intubated. Awake and alert. RECOMMENDATION: Wean off the vent as tolerated. Echo was done yesterday that showed, though it was a technically difficult study because of increased body habitus, but showed ejection fraction 55% to 60%, trace aortic regurgitation, trace mitral regurgitation, trace tricuspid regurg, RV systolic pres sure 22, essentially normal echo. RECOMMENDATION: Try to wean off the vent as tolerated. Continue antibiotic. Continue hydralazine p .r.n. The patient is on hydralazine. Avoid nephrotoxic medication p.r.n. as long as patient is intu bated. Continue low-dose beta-johann. Continue heparin for deep venous thrombosis. Possible endos copy. We will follow with you. Overall, patient's cardiovascular status is stable. No evidence of acute coronary syndrome. No evidence of acute myocardial infarction. Troponin remains flat 0.01, 0. 01 x 2 negative. Echo was essentially normal. We will follow with you. Thank you, Dr. Hou, for providing us the opportunity in taking care of the patient. We will follow with you. Jarrod Barbour MD cc: [phone] TT: 07/10/2016 17:18:12 Confirmation # [id number] Dictation # [id number]
[2016-07-10] MEDS ORDERED: Barium Sulfate Susp 2.1% w/v, 2.0% w/w 450 mL Bottle PO ONE (18:25)
--- NOTE | 2016-07-10 19:30 | VASCULAR ---
PROCEDURE: IVC Filter placement HISTORY: Epidural abscess. Status post surgery. DVT. GI bleed on heparin. Needs IVC filter PHYSICIAN(S): Pradeep Monsalve MD. TECHNIQUE: The relative risks and indications of the procedure were explained to the patient and consent obtained. The patient was placed supine on the arteriogram table the right groin prepped and draped usual sterile fashion. Conscious sedation and monitoring were provided throughout the procedure by a nurse. Via a right common femoral vein approach, a 5 Stateless sheath was placed. The guidewire and flush catheter were advanced over the IVC bifurcation and placed in the left iliac venous system. A PA DSA IVC gram was performed with emphasis on the renal veins. Exchange was made for a support wire placed in the right atrium. The 6.5 Stateless sheath was advanced to the level of the renal veins. Next a argon retrievable filter was deployed in the infrarenal IVC at the level of L1-2. A post deployment cavagram was performed through the introducer sheath. The sheath was removed and hemostasis obtained. Patient tolerated the procedure well. FINDINGS: The visualized iliac veins and IVC are normal. No evidence of IVC thrombus or anomaly is seen. The renal veins are easily identified. The argon retrievable filter was deployed and is in good position at the level of L1-2. IMPRESSION: 1. No evidence of IVC anomaly or thrombus. 2. Successful deployment of a argon retrievable filter in the infrarenal IVC at the level of L1- 2.
--- NOTE | 2016-07-10 23:36 | CT ---
EXAM: CT Abdomen and Pelvis Without Intravenous Contrast CLINICAL HISTORY: 51 years old, male; Signs and symptoms; Other: R/O obstruction; Additional info: R/O obsturction TECHNIQUE: Axial computed tomography images of the abdomen and pelvis without intravenous contrast. This CT exam was performed using one or more of the following dose reduction techniques: automated exposure control, adjustment of the mA and/or kV according to patient size, and/or use of iterative reconstruction technique. Coronal and sagittal reformatted images were created and reviewed. EXAM DATE/TIME: 07/10/2016 12:00 AM COMPARISON: Prior CT abdomen and pelvis of 07/08/2016 FINDINGS: LIMITATIONS: Exam is overall limited, secondary to moderate streak/motion artifact and streak artifact from the patient's arms. LOWER THORAX: Interval development of a right pleural effusion, small to moderate in size. Cannot exclude nearby consolidation/pneumonia in the right lung base. Small left pleural effusion also noted. ABDOMEN: LIVER: No acute abnormality of the liver identified. GALLBLADDER AND BILE DUCTS: Calcifications in the gallbladder lumen, most likely related to gallstones. No definite CT evidence of acute cholecystitis, allowing for motion artifact. PANCREAS: No CT evidence of acute pancreatitis. SPLEEN: No acute abnormality of the spleen identified. ADRENALS: No acute abnormality of the adrenal glands identified. KIDNEYS AND URETERS: No acute abnormality of the kidneys seen. No evidence of hydroureteronephrosis. STOMACH AND BOWEL: The colon is filled with air and some liquid stool, and is diffusely top normal in caliber. There is no evidence of a transition point. Most likely, the findings are secondary to a mild ileus. No evidence of diffuse colitis/pancolitis. No evidence of small bowel obstruction. APPENDIX: Appendix is seen, and is within normal limits in appearance. PELVIS: BLADDER: Catheter noted within the bladder lumen. REPRODUCTIVE: No acute abnormality of the reproductive organs is seen. ABDOMEN and PELVIS: INTRAPERITONEAL SPACE: Interval development of a small amount of pelvic free fluid, located in the cul-de-sac. No evidence of free air. BONES/JOINTS: No acute fractures or other acute bony abnormality noted. SOFT TISSUES: Small amount of fluid is again seen in the umbilicus. VASCULATURE: IVC filter in place. LYMPH NODES: No evidence of diffuse lymphadenopathy. TUBES, LINES AND DEVICES: Enteric tube loops back on itself in the gastric lumen, with its tip located in the proximal stomach/gastric fundus, directed retrograde. IMPRESSION: - Small amount of pelvic free fluid, a new finding compared to a CT done 2 days prior. This is of uncertain etiology. - Interval development of a right pleural effusion. Cannot exclude nearby consolidation/pneumonia in the right lung base. - Colonic findings which are most likely secondary to a mild ileus. - Enteric tube loops back on itself in the lumen of the stomach, and its tip is located in the proximal stomach, directed retrograde. Consider repositioning. - Otherwise, no evidence of significant acute process, allowing for study limitations. - See above for remaining findings.
[2016-07-11] MEDS: Morphine 4 mg/ml ISec IVP PRN ×8 (01:17→23:56)
[2016-07-11] MEDS: Dextrose 5%/0.9% NS 1,000 ML IV SCH ×2 (01:18→22:22)
[2016-07-11 03:07] LABS: BASO # 0.01 K/mm3 (0.0-2.0); BASO % 0.1 % (0.0-3.0); EOS # 0.1 (0.0-0.7); EOS % 0.8 % (1.5-5.0); GRAN # 9.01 (1.4-6.5); GRAN % 76.7 % (50.0-68.0); HEMOGLOBIN 11.6 gm/dL (14.0-18.0); LYMPH # 1.7 (1.2-3.4); MEAN CELL VOLUME 91.6 fL (80.0-105.0); MEAN CORPUSCULAR HEMOGLOBIN 31.4 pg (25.0-35.0); MEAN CORPUSCULAR HGB CONC 34.2 g/dl (31.0-37.0); MEAN PLATELET VOLUME 11.5 fl (7.0-11.0); MONO % 8.4 % (1.0-6.0); PLATELET COUNT 229 10^3/uL (120.0-450.0); RED CELL DISTRIBUTION WIDTH 13.2 % (11.5-14.5); WHITE BLOOD COUNT 11.8 10^3/ul (4.5-11.0)
[2016-07-11 03:19] LABS: ALB/GLOB RATIO 0.9 (1.1-1.8); ALBUMIN 3.2 g/dL (3.0-4.8); ALT/SGPT 77 U/L (7-56); AST/SGOT 74 U/L (15-59); BLOOD UREA NITROGEN 20 mg/dL (7-21); CALCIUM 8.5 mg/dL (8.4-10.5); GFR AFRICAN-AMERICAN > 60; GFR NON-AFRICAN AMERICAN > 60
[2016-07-11 03:24] LABS: % IRON SATURATION 11 % (20-55); IRON 35 ug/dL (45-180); TOTAL IRON BINDING CAPACITY 325 ug/dL (261-462)
[2016-07-11] MEDS: Heparin25000 units/250ml 1/2NS 250 ML IV PRN ×2 (05:02→13:55)
[2016-07-11] MEDS: Meropenem 1g/NS 100mL IVPB 100 ML IVPB SCH (05:03)
--- NOTE | 2016-07-11 09:44 | CP.PCM.PN ---
Subjective - Date & Time of Evaluation Date of Evaluation: 07/11/16 Time of Evaluation: 09:36 - Subjective Subjective: Patient seen and examined. Resting comfortably in bed, no acute events overnight. 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 Patient is alert, oriented, and able to converse appropriately following extubation yesterday. His main complaint is back pain but he denies abdominal pain, nausea, fever/chills. He claims to have minimal sensation in his knees but is unable to move lower extremities. He had one liquid bowel movement following administration of oral CT contrast. Review of vitals from today are normal. 12 point review of systems performed, negative aside from mentioned above. Objective - Vital Signs/Intake and Output Vital Signs (last 24 hours): Temp Pulse Resp BP Pulse Ox 98.1 F 64 20 120/65 97 07/11/16 07:24 07/11/16 07:24 07/11/16 07:24 07/11/16 07:24 07/11/16 07:24 Intake and Output: 07/11/16 07/11/16 06:59 18:59 Intake Total 1095 Output Total 1250 Balance -155 - Medications Medications: Current Medications Bacitracin (Bacitracin) 1 ea TOP DAILY [facility] Last Admin: 07/10/16 11:31 Dose: 1 ea Hydralazine HCl (Apresoline) 10 mg IVP Q6 PRN PRN Reason: FOR SBP>170 & Diastolic>100 Heparin Sodium/Sodium Chloride (Heparin 16924 Units/250ml 1/2 Normal Saline) 250 mls @ 19.006 mls/hr IV .[id number] PRN; Protocol; 14.35 UNITS/KG/HR PRN Reason: ADJUST RATE PER PROTOCOL Last Admin: 07/11/16 05:02 Dose: 29.536 mls/hr Dextrose/Sodium Chloride (Dextrose 5%/0.9% Ns 1000 Ml) 1,000 mls @ 50 mls/hr IV .Q20H DONAL Last Admin: 07/11/16 01:18 Dose: 50 mls/hr Ceftriaxone Sodium (Rocephin 2 Gm Ivpb) 100 mls @ 100 mls/hr IVPB Q12 DONAL PRN Reason: Protocol Stop: 08/08/16 10:01 Metoprolol Tartrate (Lopressor) 25 mg PO BID [facility] Last Admin: 07/10/16 18:15 Dose: 25 mg Morphine Sulfate (Morphine) 2 mg IVP Q3H PRN PRN Reason: Pain, moderate (4-7) Morphine Sulfate (Morphine) 4 mg IVP Q3H PRN PRN Reason: Pain, severe (8-10) Last Admin: 07/11/16 07:15 Dose: 4 mg Ondansetron HCl (Zofran Inj) 4 mg IVP Q8H PRN PRN Reason: Nausea/Vomiting Last Admin: 07/08/16 07:57 Dose: 4 mg Pantoprazole Sodium (Protonix Inj) 40 mg IVP Q12 DONAL Last Admin: 07/10/16 23:04 Dose: 40 mg - Labs Labs: 07/11/16 03:01 07/11/16 03:01 PT 10.8 Seconds (9.9-11.8) 07/09/16 21:30 INR 1.00 (0.93-1.08) 07/09/16 21:30 APTT 74.5 Seconds (23.7-30.8) H* 07/11/16 09:00 - Constitutional Appears: Non-toxic, No Acute Distress - Head Exam Head Exam: NORMAL INSPECTION - Eye Exam Eye Exam: EOMI, Normal appearance - ENT Exam ENT Exam: Mucous Membranes Dry Additional comments: NGT in place - Respiratory Exam Respiratory Exam: Rhonchi Additional comments: bilateral lung black - Cardiovascular Exam Cardiovascular Exam: REGULAR RHYTHM, +S1, +S2 - GI/Abdominal Exam GI & Abdominal Exam: Distended, Soft, Hypoactive Bowel Sounds Additional comments: non tender to palpation in four quadrants - Extremities Exam Extremities Exam: Normal Inspection - Skin Skin Exam: Dry, Intact, Normal Color, Warm Assessment and Plan - Assessment and Plan (Free Text) Assessment: Obesity Polysubstance abuse Epidural abscess, cord compression, osteomyelitis Paralytic ileus Pneumonia CT imaging reviewed by me showing no evidence of bowel obstruction, ileus, R pleural effusion Plan: - NPO - Continue with NGT decompression, would reposition tube based on CT imaging showing coiling of tube in stomach directed retrograde - Continue with antibiotic therapy as per ID, follow up blood cultures - Continue with PPI therapy - No planned GI intervention at this point, continue with conservative management. Will continue to monitor patient clinical course.
--- NOTE | 2016-07-11 09:52 | PN ---
DATE: 07/11/2016 The patient is in bed, in no acute distress, nontoxic. PHYSICAL EXAMINATION: GENERAL: The patient is extubated. He is comfortable. He is awake and alert, unable to move his lo wer extremities. VITAL SIGNS: Temperature of 98, blood pressure is 120/60, respiratory rate of 20, heart rate of 60. HEENT: Unremarkable. NECK: Supple. LUNGS: Have decreased breath sounds. HEART: Normal S1, S2. ABDOMEN: Soft, nontender. No rebound, no guarding. Review of the microbiology reveals the patient has Strep pneumoniae from the epidural mass cultures. Sensitivity is now available. It is sensitive to marked moxifloxacin, sensitive to ceftriaxone, Kenneth trim, vancomycin. ASSESSMENT AND PLAN: A 51-year-old male who was admitted with a history of long time alcohol abuse a nd tobacco use and admitted with a cord compression with lower extremity paralysis, status post joyce ectomy with an epidural abscess with growing Streptococcal pneumoniae and osteomyelitis. Now, we sangita l discontinue daptomycin and meropenem. Sensitive to ceftriaxone. We will use ceftriaxone 2 grams q . 12 hours. The patient is now awake and alert and will need prolonged antibiotic therapy. Will nee d 4-6 weeks of antibiotics minimal based on results and weekly CBC, SMA-18, sed rate, C-reactive prot ein and waiting for pathology report of the epidural mass and abscess. Most likely will need longer than 4-6 weeks of antibiotics, on 2 grams IV q. 12 at this point. We will follow closely with you. Colt Coronel MD cc: [phone] TT: 07/11/2016 09:51:43 Confirmation # [id number] Dictation # [id number]
--- NOTE | 2016-07-11 10:11 | RAD ---
HISTORY: r LL pna COMPARISON: 07/10/2016 FINDINGS: LUNGS: The there is improvement in the right lower lobe infiltrate adjacent to the elevated hemidiaphragm. PLEURA: No significant pleural effusion identified, no pneumothorax apparent. CARDIOVASCULAR: Normal. OSSEOUS STRUCTURES: No significant abnormalities. VISUALIZED UPPER ABDOMEN: Normal. OTHER FINDINGS: Nasogastric tube unchanged. IMPRESSION: Improved right lower lobe infiltrate
[2016-07-11] MEDS: Bacitracin 500 Units/gm Oint Foilpak UD TOP SCH (11:51)
[2016-07-11 12:31] LABS: FOLATE 7.8 ng/mL
--- NOTE | 2016-07-11 12:45 | CP.CCUPN ---
<Uzma Abbott - Last Filed: 07/11/16 13:45> CCU Subjective - Physician Review Subjective (Free Text): 07/09/16 08:28 Increased pain regimen ROSELYN output - 20cc sanguinous overnight. ROSELYN was pulled Mackenzie output - 1000cc overnight NG output - 190 black overnight 07/10/16 13:00 Last night, pt had cardiopulmonary arrest during jose manuel-procedural intubation for EGD. He became increasingly hypoxic during intubation and developed PEA. ACLS initiated. Chest compressions started. Received one dose of epinephrine. ROSC in 1 minute. Then, he had a brief NSVT after epi. Patient stabilized and transported back to ICU. 2 dark mucoid bowel movement overnight. At 11:00 today, Pt extubated. Negative edematous airway due to (+) cuff leak 07/11/16 12:45 Had PO contrast for CT abd/pelvis. 250 cc bilious fluid output via NGT during overnight nursing shift. CCU Objective - Vital Signs / Intake & Output Vital Signs (Last 4 hours): Vital Signs Pulse Resp BP Pulse Ox 07/11/16 10:04 65 24 07/11/16 10:03 64 22 07/11/16 10:02 66 20 07/11/16 10:01 65 21 07/11/16 10:00 64 22 125/59 L 92 L 07/11/16 09:43 66 20 07/11/16 09:00 67 23 151/75 H 100 Intake and Output (Last 8hrs): Intake & Output 07/10/16 07/11/16 07/11/16 22:59 06:59 14:59 Intake Total 1100 1095 Output Total 725 1250 Balance 375 -155 Intake: IV 900 1095 lfa 200 LEFT 600 600 LEFT HAND 300 295 Other 200 Output: Drainage 25 250 Right Nare 25 250 Urine 700 1000 Urethral (Mackenzie) 700 1000 Other: Voiding Method Indwelling Catheter Indwelling Catheter # Bowel Movements 1 2 - Physical Exam Head: Positive for: Atraumatic, Normocephalic Pupils: Positive for: PERRL Extroacular Muscles: Positive for: EOMI Conjunctiva: Positive for: Normal Mouth: Positive for: Moist Mucous Membranes, Other (NGT in place) Neck: Positive for: Trachea Midline. Negative for: Meningeal Signs Respiratory/Chest: Positive for: Clear to Auscultation, Rhonchi (R), Other ( Course bronchial-vesicular sound both inhale and exhale). Negative for: Respiratory Distress, Accessory Muscle Use, Rales, Retracting Cardiovascular: Positive for: Regular Rate and Rhythm, Normal S1, S2. Negative for: Murmurs Abdomen: Positive for: Distention, Other (obese, No sensation of T5 and down). Negative for: Tenderness, Normal Bowel Sounds (hypoactive ), Peritoneal Signs Back: Positive for: Midline Tenderness (At surgical site). Negative for: Pain with Leg Raise Upper Extremity: Positive for: Normal Inspection. Negative for: Cyanosis, Edema Lower Extremity: Positive for: Edema, NORMAL PULSES, Other (No sensory and motor ) Neurological: Positive for: GCS=15, CN II-XII Intact, Speech Normal (Voice coarse s/p intubation) Skin: Positive for: Warm, Dry, Normal Color. Negative for: Rashes Psychiatric: Positive for: Alert, Oriented x 3, Normal Insight, Normal Concentration - Medications Active Medications: Active Medications Generic Name Dose Route Start Last Admin Trade Name Freq PRN Reason Stop Dose Admin Bacitracin 1 ea 07/09/16 10:00 07/11/16 11:51 Bacitracin TOP 1 ea DAILY DONAL Administration Hydralazine HCl 10 mg 07/07/16 17:14 Apresoline IVP Q6 PRN FOR SBP>170 & Diastolic>100 Heparin Sodium/Sodium Chloride 250 mls @ 19.006 mls/hr 07/07/16 18:20 07/11/16 05:02 Heparin 79374 Units/250ml 1/2 Normal Saline IV 29.536 mls/hr .[id number] PRN Administration ADJUST RATE PER PROTOCOL Protocol 14.35 UNITS/KG/HR Dextrose/Sodium Chloride 1,000 mls @ 50 mls/hr 07/08/16 12:51 07/11/16 01:18 Dextrose 5%/0.9% Ns 1000 Ml IV 50 mls/hr .Q20H DONAL Administration Ceftriaxone Sodium 100 mls @ 100 mls/hr 07/11/16 10:00 Rocephin 2 Gm Ivpb IVPB 08/08/16 10:01 Q12 DONAL Protocol Metoprolol Tartrate 25 mg 07/08/16 11:25 07/11/16 11:51 Lopressor PO 25 mg BID DONAL Administration Morphine Sulfate 2 mg 07/09/16 07:18 Morphine IVP Q3H PRN Pain, moderate (4-7) Morphine Sulfate 4 mg 07/10/16 00:26 07/11/16 09:41 Morphine IVP 4 mg Q3H PRN Administration Pain, severe (8-10) Ondansetron HCl 4 mg 07/08/16 07:30 07/08/16 07:57 Zofran Inj IVP 4 mg Q8H PRN Administration Nausea/Vomiting Pantoprazole Sodium 40 mg 07/08/16 22:00 07/11/16 11:51 Protonix Inj IVP 40 mg Q12 DONAL Administration - Patient Studies Lab Studies: Microbiology Studies 07/07/16 15:25 Gram Stain - Final Other: Please Indicate Anaerobic Culture - Final NO ANAEROBES ISOLATED. Wound Culture - Final Streptococcus Pneumoniae 07/07/16 15:25 Gram Stain - Final Other: Please Indicate Body Fluid Culture - Final Streptococcus Pneumoniae Lab Studies 07/11/16 07/11/16 07/10/16 Range/Units 09:00 03:01 19:55 WBC 11.8 H D (4.5-11.0) 10^3/ul RBC 3.70 (3.5-6.1) 10^6/uL Hgb 11.6 L (14.0-18.0) gm/dL Hct 33.9 L (42.0-52.0) % MCV 91.6 (80.0-105.0) fL MCH 31.4 (25.0-35.0) pg MCHC 34.2 (31.0-37.0) g/dl RDW 13.2 (11.5-14.5) % Plt Count 229 (120.0-450.0) 10^3/uL MPV 11.5 H (7.0-11.0) fl Gran % 76.7 H (50.0-68.0) % Lymph % (Auto) 14.0 L (22.0-35.0) % [place] % (Auto) 8.4 H (1.0-6.0) % Eos % (Auto) 0.8 L (1.5-5.0) % Baso % (Auto) 0.1 (0.0-3.0) % Gran # 9.01 H (1.4-6.5) Lymph # 1.7 (1.2-3.4) [place] # 1.0 H (0.1-0.6) Eos # 0.1 (0.0-0.7) Baso # 0.01 (0.0-2.0) K/mm3 APTT 74.5 H* 62.3 H 31.4 H (23.7-30.8) Seconds Sodium 139 (132-148) mmol/L Potassium 4.3 (3.6-5.0) mmol/L Chloride 102 (98-107) mmol/L Carbon Dioxide 31 (21-33) mmol/L Anion Gap 10 (10-20) BUN 20 (7-21) mg/dL Creatinine 0.9 (0.5-1.4) mg/dL Est GFR ( Amer) > 60 Est GFR (Non-Af Amer) > 60 Random Glucose 98 (70-110) mg/dL Calcium 8.5 (8.4-10.5) mg/dL Iron 35 L (45-180) ug/dL TIBC 325 (261-462) ug/dL % Saturation 11 L (20-55) % Ferritin 604.0 ng/mL Total Bilirubin 0.7 (0.2-1.3) mg/dL AST 74 H (15-59) U/L ALT 77 H (7-56) U/L Alkaline Phosphatase 57 (38-133) U/L Total Protein 6.9 (5.8-8.3) g/dL Albumin 3.2 (3.0-4.8) g/dL Globulin 3.7 gm/dL Albumin/Globulin Ratio 0.9 L (1.1-1.8) Vitamin B12 327 (239-931) pg/mL Folate 7.8 ng/mL 07/10/16 Range/Units 15:35 WBC (4.5-11.0) 10^3/ul RBC (3.5-6.1) 10^6/uL Hgb (14.0-18.0) gm/dL Hct (42.0-52.0) % MCV (80.0-105.0) fL MCH (25.0-35.0) pg MCHC (31.0-37.0) g/dl RDW (11.5-14.5) % Plt Count (120.0-450.0) 10^3/uL MPV (7.0-11.0) fl Gran % (50.0-68.0) % Lymph % (Auto) (22.0-35.0) % [place] % (Auto) (1.0-6.0) % Eos % (Auto) (1.5-5.0) % Baso % (Auto) (0.0-3.0) % Gran # (1.4-6.5) Lymph # (1.2-3.4) [place] # (0.1-0.6) Eos # (0.0-0.7) Baso # (0.0-2.0) K/mm3 APTT 69.0 H (23.7-30.8) Seconds Sodium (132-148) mmol/L Potassium (3.6-5.0) mmol/L Chloride (98-107) mmol/L Carbon Dioxide (21-33) mmol/L Anion Gap (10-20) BUN (7-21) mg/dL Creatinine (0.5-1.4) mg/dL Est GFR ( Amer) Est GFR (Non-Af Amer) Random Glucose (70-110) mg/dL Calcium (8.4-10.5) mg/dL Iron (45-180) ug/dL TIBC (261-462) ug/dL % Saturation (20-55) % Ferritin ng/mL Total Bilirubin (0.2-1.3) mg/dL AST (15-59) U/L ALT (7-56) U/L Alkaline Phosphatase (38-133) U/L Total Protein (5.8-8.3) g/dL Albumin (3.0-4.8) g/dL Globulin gm/dL Albumin/Globulin Ratio (1.1-1.8) Vitamin B12 (239-931) pg/mL Folate ng/mL Laboratory Results - last 24 hr 07/10/16 07/10/16 07/11/16 15:35 19:55 03:01 WBC 11.8 H D RBC 3.70 Hgb 11.6 L Hct 33.9 L MCV 91.6 MCH 31.4 MCHC 34.2 RDW 13.2 Plt Count 229 MPV 11.5 H Gran % 76.7 H Lymph % (Auto) 14.0 L [place] % (Auto) 8.4 H Eos % (Auto) 0.8 L Baso % (Auto) 0.1 Gran # 9.01 H Lymph # 1.7 [place] # 1.0 H Eos # 0.1 Baso # 0.01 APTT 69.0 H 31.4 H 62.3 H Sodium 139 Potassium 4.3 Chloride 102 Carbon Dioxide 31 Anion Gap 10 BUN 20 Creatinine 0.9 Est GFR ( Amer) > 60 Est GFR (Non-Af Amer) > 60 Random Glucose 98 Calcium 8.5 Iron 35 L TIBC 325 % Saturation 11 L Ferritin 604.0 Total Bilirubin 0.7 AST 74 H ALT 77 H Alkaline Phosphatase 57 Total Protein 6.9 Albumin 3.2 Globulin 3.7 Albumin/Globulin Ratio 0.9 L Vitamin B12 327 Folate 7.8 07/11/16 09:00 WBC RBC Hgb Hct MCV MCH MCHC RDW Plt Count MPV Gran % Lymph % (Auto) [place] % (Auto) Eos % (Auto) Baso % (Auto) Gran # Lymph # [place] # Eos # Baso # APTT 74.5 H* Sodium Potassium Chloride Carbon Dioxide Anion Gap BUN Creatinine Est GFR ( Amer) Est GFR (Non-Af Amer) Random Glucose Calcium Iron TIBC % Saturation Ferritin Total Bilirubin AST ALT Alkaline Phosphatase Total Protein Albumin Globulin Albumin/Globulin Ratio Vitamin B12 Folate Critical Care Progress Note - Nutrition Nutrition: Nutrition Category Date Time Status NPO Diet [DIET] Diets 07/09/16 Breakfast Ordered Assessment/Plan - Assessment and Plan (Free Text) Plan: 51 years old obese male, with hx of polysubstance abuse (active smoker, 20pack- yr, alcohol abuse-3 cans a day, snorting cocaine user), has (1) R Leg DVT, (2) lower extremity hemiparesis, and (3) spinal cord compression s/p emergent decompressive laminectomy T2-T4 & fusion. He was started with RLE weakness 1 week ago. Pt last snorted cocaine thursday [place] [facility] [place] He became hemiparesis with loss of bladder function due to cord compression vs spinal infarct from cocaine use. He loses sensation from T5. Cord compression is due to anterior epidural mass got infected vs abscess. Purulent pus in Spinal code cultured strep pneumo, suggestive of osteomyelitis and/or diskitis. He is on daptomycin and meropenum. CT c/a/p showed dilated stomach without contrast extravastion to lower GI and fecal retention. Pt developed gastric and abdominal distention. Ddx: Neurogenic bowel dysfunction vs Paralytic ileus. Has ruled out gsatric outlet obstruction. He was found to have R LE DVT. CK 313, old bruises on gluteal region b/l. He was found (+) cocaine. Pt denied trauma or prolonged laying. [place] [facility] [place] no PE, no aortic dissection. Work up on DVT is undergoing, provoked vs unprovoked, malignancy vs inheritary vs immunogenic/connective tissue disease. He is on Lovenox therapeutic dose while bridging coumadin. Held during procedure. Resume heparin drip immediately s/p decompressive laminectomy. Coumadin still on hold. Developed melena on 07/10. IVC filter placed on 07/10. Night of 07/09, pt had cardiopulmonary arrest during jose manuel-procedural intubation for EGD. The purpose of EGD was to r/o obstruction. He became increasingly hypoxic during intubation and developed PEA. ACLS initiated. Chest compressions started. Received one dose of epinephrine. ROSC in 1 minute. Then, he had a brief NSVT after epi. Patient stabilized and transported back to ICU. On 07/10, 11:00 today, Pt extubated. Has ruled out edematous airway by confirming (+) cuff leak. Currently pt is talking, airway protected. Neuro - s/p emergent decompression laminectomy, T2-T4, POD #4 - ROSELYN pulled - morphine 4q3 PRN, 2q3 PRN, oxycodone 1q4 PRN - Neurock q1 - Aggressive PT/OT - Psych consult for plan for therapist/counseling - Hx multi-substance abuse Cardio - s/p cardiopulmonary arrest on 07/09. - QTc 544 - Atypical chest pain radiating from spinal abscess - resolved - Metoprolol 25 PO BID - hydralazine 10q6 PRN - Echocardiogram: (07/08) LVEF 55-60, RVSP 22 - trend H/H - Obesity Pulm - Extubated on 07/10 - CXR - Moderate to large R pleural effusion; opacity in R lung, infiltrative vs pleural fluid; already on meropenem - bipap HS // titrate to above 95% - inspiration spirometry 10 every hour GI - GI bleed - suspected. Hemeoccult +, Original NGT suctioned dark gastric content. Now 250 cc bilious fluid output via NGT during overnight nursing shift - NGT on ILS - NPO, D5/NS @ 50 - Repeat CT abdomen and pelvis with PO contrast showed no obstructions, mild ileus. - 250 cc bilious fluid output via NGT during overnight nursing shift - During first few months of spinal cord injury, 10% risk of upper GI bleed, appendicitis, cholecysticis, pancreatitis. - PPI IV q12 - May need bowel regimen and/or short-term prokinetics agent/high fiber diet, depending on clinical course. Consider Miralax. - Goal of feeding: GI Recommends small frequent meal of regular consistency. Not a candidate for PEG tube. Nephro - on Mackenzie. U/O adequate - Consider Supra-pubic catheter for neurogenic bladder Endo - A1C 6.3 - maintain euglycemic Heme - For R LE DVT, heparin drip based ht and age (ideal body wt), goal PTT 45-55. IVC filter placed. Not bridging to coumadin yet. - Hypercoagulable workup - pending Antithrombin III activity, factor V mutation , Lupus anticoags, protein C/S activity - Normocytic anemia, 400 cc blood loss during laminectomy, Hemeoccult (+) stool , coffee-ground NG output Infectious - No fever/No leukocytosis - Suspected pneumonia on CXR. - Meropenem, daptomycin was discontinued. ID started cetriaxone. - Epidural abscess; Pus and surrounding fluid grows streptococcus Pneumonia. Vanco sensitive. No anaerobes. - No grown blood culture x 4 days - Echocardiogram (TTE) has ruled out endocarditis - CT chest/Abd/Pelvis with PO and IV contrast unremarkable for cancer, paraneoplastic, or hidden abscess - HIV, Hepatitis panel negative - skin care and reposition regularly Prophylaxis - Heparin drip - Protonix high dose Prognosis - Per Neurosurgery: Prognosis, not good as pt not regaining any function thus far post-op. Recovery outcome may vary per individual. Individual nerve regeneration may take 12-18 months. Disposition - Request to transfer to telemetry - Likely need long-term rehab and care. foster care worker Neda on board. - POA choice - Daily dressing changes S/R/D/w Dr. Renée Wolf - Date & Time Date: 07/11/16 Time: 12:49 <Alfonso Wolf - Last Filed: 07/11/16 14:06> CCU Objective - Vital Signs / Intake & Output Vital Signs (Last 4 hours): Vital Signs Pulse Resp BP Pulse Ox 07/11/16 12:26 63 18 07/11/16 12:25 63 19 07/11/16 12:24 67 18 07/11/16 12:23 62 23 07/11/16 12:00 64 25 H 148/68 100 07/11/16 11:00 64 20 134/69 99 07/11/16 10:57 65 21 100 Intake and Output (Last 8hrs): Intake & Output 07/10/16 07/11/16 07/11/16 22:59 06:59 14:59 Intake Total 1100 1095 Output Total 725 1250 Balance 375 -155 Intake: IV 900 1095 lfa 200 LEFT 600 600 LEFT HAND 300 295 Other 200 Output: Drainage 25 250 Right Nare 25 250 Urine 700 1000 Urethral (Mackenzie) 700 1000 Other: Voiding Method Indwelling Catheter Indwelling Catheter # Bowel Movements 1 2 - Medications Active Medications: Active Medications Generic Name Dose Route Start Last Admin Trade Name Freq PRN Reason Stop Dose Admin Bacitracin 1 ea 07/09/16 10:00 07/11/16 11:51 Bacitracin TOP 1 ea DAILY DONAL Administration Guaifenesin 600 mg 07/11/16 18:00 Mucinex La PO BID DONAL Hydralazine HCl 10 mg 07/07/16 17:14 Apresoline IVP Q6 PRN FOR SBP>170 & Diastolic>100 Heparin Sodium/Sodium Chloride 250 mls @ 19.006 mls/hr 07/07/16 18:20 07/11/16 13:55 Heparin 08957 Units/250ml 1/2 Normal Saline IV 29.536 mls/hr .[id number] PRN Administration ADJUST RATE PER PROTOCOL Protocol 14.35 UNITS/KG/HR Dextrose/Sodium Chloride 1,000 mls @ 50 mls/hr 07/08/16 12:51 07/11/16 01:18 Dextrose 5%/0.9% Ns 1000 Ml IV 50 mls/hr .Q20H DONAL Administration Ceftriaxone Sodium 100 mls @ 100 mls/hr 07/11/16 10:00 Rocephin 2 Gm Ivpb IVPB 08/08/16 10:01 Q12 DONAL Protocol Metoprolol Tartrate 25 mg 07/08/16 11:25 07/11/16 11:51 Lopressor PO 25 mg BID DONAL Administration Morphine Sulfate 2 mg 07/09/16 07:18 Morphine IVP Q3H PRN Pain, moderate (4-7) Morphine Sulfate 4 mg 07/10/16 00:26 07/11/16 12:39 Morphine IVP 4 mg Q3H PRN Administration Pain, severe (8-10) Ondansetron HCl 4 mg 07/08/16 07:30 07/08/16 07:57 Zofran Inj IVP 4 mg Q8H PRN Administration Nausea/Vomiting Pantoprazole Sodium 40 mg 07/08/16 22:00 07/11/16 11:51 Protonix Inj IVP 40 mg Q12 DONAL Administration - Patient Studies Lab Studies: Microbiology Studies 07/07/16 15:25 Gram Stain - Final Other: Please Indicate Anaerobic Culture - Final NO ANAEROBES ISOLATED. Wound Culture - Final Streptococcus Pneumoniae 07/07/16 15:25 Gram Stain - Final Other: Please Indicate Body Fluid Culture - Final Streptococcus Pneumoniae Lab Studies 07/11/16 07/11/16 07/10/16 Range/Units 09:00 03:01 19:55 WBC 11.8 H D (4.5-11.0) 10^3/ul RBC 3.70 (3.5-6.1) 10^6/uL Hgb 11.6 L (14.0-18.0) gm/dL Hct 33.9 L (42.0-52.0) % MCV 91.6 (80.0-105.0) fL MCH 31.4 (25.0-35.0) pg MCHC 34.2 (31.0-37.0) g/dl RDW 13.2 (11.5-14.5) % Plt Count 229 (120.0-450.0) 10^3/uL MPV 11.5 H (7.0-11.0) fl Gran % 76.7 H (50.0-68.0) % Lymph % (Auto) 14.0 L (22.0-35.0) % [place] % (Auto) 8.4 H (1.0-6.0) % Eos % (Auto) 0.8 L (1.5-5.0) % Baso % (Auto) 0.1 (0.0-3.0) % Gran # 9.01 H (1.4-6.5) Lymph # 1.7 (1.2-3.4) [place] # 1.0 H (0.1-0.6) Eos # 0.1 (0.0-0.7) Baso # 0.01 (0.0-2.0) K/mm3 APTT 74.5 H* 62.3 H 31.4 H (23.7-30.8) Seconds Sodium 139 (132-148) mmol/L Potassium 4.3 (3.6-5.0) mmol/L Chloride 102 (98-107) mmol/L Carbon Dioxide 31 (21-33) mmol/L Anion Gap 10 (10-20) BUN 20 (7-21) mg/dL Creatinine 0.9 (0.5-1.4) mg/dL Est GFR ( Amer) > 60 Est GFR (Non-Af Amer) > 60 Random Glucose 98 (70-110) mg/dL Calcium 8.5 (8.4-10.5) mg/dL Iron 35 L (45-180) ug/dL TIBC 325 (261-462) ug/dL % Saturation 11 L (20-55) % Ferritin 604.0 ng/mL Total Bilirubin 0.7 (0.2-1.3) mg/dL AST 74 H (15-59) U/L ALT 77 H (7-56) U/L Alkaline Phosphatase 57 (38-133) U/L Total Protein 6.9 (5.8-8.3) g/dL Albumin 3.2 (3.0-4.8) g/dL Globulin 3.7 gm/dL Albumin/Globulin Ratio 0.9 L (1.1-1.8) Vitamin B12 327 (239-931) pg/mL Folate 7.8 ng/mL 07/10/16 Range/Units 15:35 WBC (4.5-11.0) 10^3/ul RBC (3.5-6.1) 10^6/uL Hgb (14.0-18.0) gm/dL Hct (42.0-52.0) % MCV (80.0-105.0) fL MCH (25.0-35.0) pg MCHC (31.0-37.0) g/dl RDW (11.5-14.5) % Plt Count (120.0-450.0) 10^3/uL MPV (7.0-11.0) fl Gran % (50.0-68.0) % Lymph % (Auto) (22.0-35.0) % [place] % (Auto) (1.0-6.0) % Eos % (Auto) (1.5-5.0) % Baso % (Auto) (0.0-3.0) % Gran # (1.4-6.5) Lymph # (1.2-3.4) [place] # (0.1-0.6) Eos # (0.0-0.7) Baso # (0.0-2.0) K/mm3 APTT 69.0 H (23.7-30.8) Seconds Sodium (132-148) mmol/L Potassium (3.6-5.0) mmol/L Chloride (98-107) mmol/L Carbon Dioxide (21-33) mmol/L Anion Gap (10-20) BUN (7-21) mg/dL Creatinine (0.5-1.4) mg/dL Est GFR ( Amer) Est GFR (Non-Af Amer) Random Glucose (70-110) mg/dL Calcium (8.4-10.5) mg/dL Iron (45-180) ug/dL TIBC (261-462) ug/dL % Saturation (20-55) % Ferritin ng/mL Total Bilirubin (0.2-1.3) mg/dL AST (15-59) U/L ALT (7-56) U/L Alkaline Phosphatase (38-133) U/L Total Protein (5.8-8.3) g/dL Albumin (3.0-4.8) g/dL Globulin gm/dL Albumin/Globulin Ratio (1.1-1.8) Vitamin B12 (239-931) pg/mL Folate ng/mL Laboratory Results - last 24 hr 07/10/16 07/10/16 07/11/16 15:35 19:55 03:01 WBC 11.8 H D RBC 3.70 Hgb 11.6 L Hct 33.9 L MCV 91.6 MCH 31.4 MCHC 34.2 RDW 13.2 Plt Count 229 MPV 11.5 H Gran % 76.7 H Lymph % (Auto) 14.0 L [place] % (Auto) 8.4 H Eos % (Auto) 0.8 L Baso % (Auto) 0.1 Gran # 9.01 H Lymph # 1.7 [place] # 1.0 H Eos # 0.1 Baso # 0.01 APTT 69.0 H 31.4 H 62.3 H Sodium 139 Potassium 4.3 Chloride 102 Carbon Dioxide 31 Anion Gap 10 BUN 20 Creatinine 0.9 Est GFR ( Amer) > 60 Est GFR (Non-Af Amer) > 60 Random Glucose 98 Calcium 8.5 Iron 35 L TIBC 325 % Saturation 11 L Ferritin 604.0 Total Bilirubin 0.7 AST 74 H ALT 77 H Alkaline Phosphatase 57 Total Protein 6.9 Albumin 3.2 Globulin 3.7 Albumin/Globulin Ratio 0.9 L Vitamin B12 327 Folate 7.8 07/11/16 09:00 WBC RBC Hgb Hct MCV MCH MCHC RDW Plt Count MPV Gran % Lymph % (Auto) [place] % (Auto) Eos % (Auto) Baso % (Auto) Gran # Lymph # [place] # Eos # Baso # APTT 74.5 H* Sodium Potassium Chloride Carbon Dioxide Anion Gap BUN Creatinine Est GFR ( Amer) Est GFR (Non-Af Amer) Random Glucose Calcium Iron TIBC % Saturation Ferritin Total Bilirubin AST ALT Alkaline Phosphatase Total Protein Albumin Globulin Albumin/Globulin Ratio Vitamin B12 Folate Critical Care Progress Note - Nutrition Nutrition: Nutrition Category Date Time Status NPO Diet [DIET] Diets 07/09/16 Breakfast Ordered Attending/Attestation - Attestation I have personally seen and examined this patient.: Yes I have fully participated in the care of the patient.: Yes I have reviewed all pertinent clinical information: Yes Notes (Text): 07/11/16 14:05 The patient was seen and examined at the bedside. Patient care was discussed with resident Medical records, lab studies, and imaging were reviewed and management issues were discussed and formulated. Last 24H events reviewed. Agree with above treatment plans as outlined in 's note with addition of the following: -Pt remains hemodynamically stable and is comfortable on NC in no distress. No events overnight. CCM f\u 25min
[2016-07-11] MEDS ORDERED: Morphine 2 mg/ml ISec IVP STA (16:58)
--- NOTE | 2016-07-11 17:03 | PN ---
DATE: 07/11/2016 LOCATION: CCU 129, bed 1. REASON FOR CONSULTATION AND FOLLOWUP: Chest pain, cardiac evaluation, status post spinal abscess, DV T, status post CPR, status post intubation. HISTORY OF PRESENT ILLNESS: A 51-year-old male with no significant past medical history admitted wit h 1 week duration of pain radiating from the back to the chest, so cardiac consult was called. Actua hasmuhk, it was a spinal abscess, so the patient was having chest pain radiating from the back to the fro nt. Since patient's abscess was drained, he had no further complaints of chest pain, but in the cour se of hospitalization, the patient was found to have a right lower extremity deep venous thrombosis a nd was started on heparin after clearance from spinal surgery. During the course of heparin, patient developed coffee ground vomiting, so NG tube was placed. The patient went for an endoscopy, but was difficult intubation, so patient developed respiratory distress and a short CPR had to be done to br ing back the patient. The patient is now awake and alert, extubated. Denies chest pain, shortness of breath, or palpitation. PHYSICAL EXAMINATION: VITAL SIGNS: Blood pressure 134/69, respirations 20, pulse 64. The patient is afebrile. HEAD: Normocephalic. EYES: Pupils normal. Conjunctivae are slightly pale. NECK: JVP low. Carotids equal. THORAX: AP diameter normal. LUNGS: Clear. CARDIOVASCULAR: S1, S2. ABDOMEN: Soft, nontender, no organomegaly. Bowel sounds normal. EXTREMITIES: No clubbing, no cyanosis. LABORATORY DATA: WBC 11.8, hemoglobin 11.6, hematocrit 33.9, platelets 229. Sodium 139, potassium 4 .3, BUN 20, creatinine 0.9, AST 74, ALT 77. DIAGNOSES: Status post CPR, status post intubation, now successfully extubated, gastrointestinal ble eding, status post spinal abscess drain, status post deep venous thrombosis of right lower extremity, right common femoral vein, obesity, chest pain was radiation pain from spinal abscess. Yesterday, e cho showed LV ejection fraction of 55%-60%. RV systolic pressure 22 mmHg, essentially normal echo, t race tricuspid, mitral and aortic regurg was seen. PLAN: The patient getting IV therapy. The patient is getting IV heparin, metoprolol 25 b.i.d., Roce phin 2 gram IV q. 12 hours. We will continue present therapy and monitor with you and follow with van u. Jarrod Sumner MD cc: [id number] TT: 07/11/2016 17:03:22 Confirmation # [id number] Dictation # [id number] rn
[2016-07-11] MEDS: guaiFENesin 600 mg ER Tab PO SCH (17:36)
[2016-07-11] MEDS: Zinc Oxide Topical 40% Oint (Desitin) TOP SCH (17:37)
--- NOTE | 2016-07-11 17:37 | CP.PCM.PN ---
<Amelia Malone - Last Filed: 07/11/16 17:30> Subjective - Date & Time of Evaluation Date of Evaluation: 07/11/16 Time of Evaluation: 17:30 - Subjective Subjective: Hospitalist note Pt s&e w attending. Pt was extubated yesterday and IVC filter placed. Had BM. NGT had bilious fluids 250cc/24hrs. Pt no complainst. Denies F/C/N/V/D/CP/SOB. Objective - Vital Signs/Intake and Output Vital Signs (last 24 hours): Temp Pulse Resp BP Pulse Ox 99.5 F 68 20 170/68 H 95 07/11/16 16:52 07/11/16 16:52 07/11/16 16:52 07/11/16 16:52 07/11/16 16:52 Intake and Output: 07/11/16 07/11/16 06:59 18:59 Intake Total 1095 Output Total 1250 Balance -155 - Medications Medications: Current Medications Bacitracin (Bacitracin) 1 ea TOP DAILY [facility] Last Admin: 07/11/16 11:51 Dose: 1 ea Guaifenesin (Mucinex La) 600 mg PO BID [facility] Hydralazine HCl (Apresoline) 10 mg IVP Q6 PRN PRN Reason: FOR SBP>170 & Diastolic>100 Heparin Sodium/Sodium Chloride (Heparin 10500 Units/250ml 1/2 Normal Saline) 250 mls @ 19.006 mls/hr IV .[id number] PRN; Protocol; 14.35 UNITS/KG/HR PRN Reason: ADJUST RATE PER PROTOCOL Last Admin: 07/11/16 13:55 Dose: 29.536 mls/hr Dextrose/Sodium Chloride (Dextrose 5%/0.9% Ns 1000 Ml) 1,000 mls @ 50 mls/hr IV .Q20H [facility] Last Admin: 07/11/16 01:18 Dose: 50 mls/hr Ceftriaxone Sodium (Rocephin 2 Gm Ivpb) 100 mls @ 100 mls/hr IVPB Q12 [facility] PRN Reason: Protocol Stop: 08/08/16 10:01 Last Admin: 07/11/16 12:00 Dose: 100 mls/hr Metoprolol Tartrate (Lopressor) 25 mg PO BID [facility] Last Admin: 07/11/16 11:51 Dose: 25 mg Morphine Sulfate (Morphine) 2 mg IVP Q3H PRN PRN Reason: Pain, moderate (4-7) Morphine Sulfate (Morphine) 4 mg IVP Q3H PRN PRN Reason: Pain, severe (8-10) Last Admin: 07/11/16 16:06 Dose: 4 mg Ondansetron HCl (Zofran Inj) 4 mg IVP Q8H PRN PRN Reason: Nausea/Vomiting Last Admin: 07/08/16 07:57 Dose: 4 mg Pantoprazole Sodium (Protonix Inj) 40 mg IVP Q12 [facility] Last Admin: 07/11/16 11:51 Dose: 40 mg Petrolatum (Desitin Maximum Strength Topical 40% Oint) 0.1 gm TOP BID [facility] - Labs Labs: 07/11/16 03:01 07/11/16 03:01 PT 10.8 Seconds (9.9-11.8) 07/09/16 21:30 INR 1.00 (0.93-1.08) 07/09/16 21:30 APTT 74.5 Seconds (23.7-30.8) H* 07/11/16 09:00 - Constitutional Appears: No Acute Distress - Head Exam Head Exam: ATRAUMATIC, NORMAL INSPECTION, NORMOCEPHALIC - Eye Exam Eye Exam: EOMI, Normal appearance, PERRL Pupil Exam: NORMAL ACCOMODATION, PERRL - ENT Exam ENT Exam: Mucous Membranes Moist, Normal Exam - Neck Exam Neck Exam: Full ROM, Normal Inspection. absent: Lymphadenopathy - Respiratory Exam Respiratory Exam: Clear to Ausculation Bilateral, NORMAL BREATHING PATTERN - Cardiovascular Exam Cardiovascular Exam: REGULAR RHYTHM, +S1, +S2. absent: Murmur - GI/Abdominal Exam GI & Abdominal Exam: Distended, Soft, Normal Bowel Sounds. absent: Firm, Guarding, Rigid, Tenderness, Mass, Rebound - Exam Additional comments: Haque in place - Extremities Exam Extremities Exam: Normal Capillary Refill. absent: Joint Swelling, Pedal Edema , Tenderness Additional comments: LE: Decreased sensation . No motor function - Back Exam Additional comments: Dressing C/D/I - Neurological Exam Neurological Exam: Alert, Awake, CN II-XII Intact, Motor Sensory Deficit, Oriented x3. absent: Normal Gait, Reflexes Normal - Psychiatric Exam Psychiatric exam: Normal Affect, Normal Mood - Skin Skin Exam: Dry, Intact, Normal Color, Warm Assessment and Plan - Assessment and Plan (Free Text) Assessment: 51 year old male with no significant past medical history is s/p T2-T4 lamenectomy POD #3 US of LE showed R LE DVT. Hemeoccult positive. Billious draining from NG tube Plan: Epidural space abscess s/p lamenectomy T2-T4 POD #4 - Wound cultures grew strep pneumo - Pathology is pending - Will continue antibiotics DApto Merrem per ID - CT of chest/abd/pelvis is negative for malignancy -ID -MRI c/ and w/o contrast on 07/07 prior to procedure showed fluid collection in ventral epidural space from T1-T5 with cord compression and obliteration of subarachinoid space; abnormal signal in T3&T4 which may represent osteomyelitis vs. metastatic dz; no disc herniation, spinal canal stenosis or neuroforaminal narrowing. Lumbar spine MRI was negative for cauda equina. Please see full reports for details. Paralysis in LE - Will continue to monitor - PT/OT - boots are in place and pt is being turned to prevent stress ulcers Neurogenic bowel vs. ileus - GI is consulted. -NGT - Heme occult is positive for blood. Will continue to monitor Hgb. Neurogenic bladder - Haque in place - Urology is consulted. R LE DVT -s/pIVC filter - Pt is on heparin drip and closely monitored for bleeding - Heme consult, Dr. Warren requested. - 07/06 US of LE showed thrombus in right common and proximal femoral vein Prophylaxis - Protonix - heparin drip Case discussed with attending, Dr. Tutu Marc <Tutu Marc - Last Filed: 07/12/16 11:10> Objective - Vital Signs/Intake and Output Vital Signs (last 24 hours): Temp Pulse Resp BP Pulse Ox 98.5 F 71 15 127/75 99 07/12/16 04:00 07/12/16 05:44 07/12/16 05:02 07/12/16 09:18 07/12/16 05:02 Intake and Output: 07/12/16 07/12/16 06:59 18:59 Intake Total 1160 Output Total 1400 Balance -240 - Medications Medications: Current Medications Bacitracin (Bacitracin) 1 ea TOP DAILY [facility] Last Admin: 07/12/16 09:18 Dose: 1 ea Guaifenesin (Mucinex La) 600 mg PO BID [facility] Last Admin: 07/12/16 09:16 Dose: 600 mg Hydralazine HCl (Apresoline) 10 mg IVP Q6 PRN PRN Reason: FOR SBP>170 & Diastolic>100 Heparin Sodium/Sodium Chloride (Heparin 83170 Units/250ml 1/2 Normal Saline) 250 mls @ 19.006 mls/hr IV .[id number] PRN; Protocol; 14.35 UNITS/KG/HR PRN Reason: ADJUST RATE PER PROTOCOL Last Admin: 07/12/16 08:35 Dose: 29.536 mls/hr Dextrose/Sodium Chloride (Dextrose 5%/0.9% Ns 1000 Ml) 1,000 mls @ 50 mls/hr IV .Q20H [facility] Last Admin: 07/11/16 22:22 Dose: 50 mls/hr Ceftriaxone Sodium (Rocephin 2 Gm Ivpb) 100 mls @ 100 mls/hr IVPB Q12 [facility] PRN Reason: Protocol Stop: 08/08/16 10:01 Last Admin: 07/12/16 09:16 Dose: 100 mls/hr Metoprolol Tartrate (Lopressor) 25 mg PO BID [facility] Last Admin: 07/12/16 09:18 Dose: 25 mg Morphine Sulfate (Morphine) 2 mg IVP Q3H PRN PRN Reason: Pain, moderate (4-7) Morphine Sulfate (Morphine) 4 mg IVP Q3H PRN PRN Reason: Pain, severe (8-10) Last Admin: 07/12/16 09:47 Dose: 4 mg Ondansetron HCl (Zofran Inj) 4 mg IVP Q8H PRN PRN Reason: Nausea/Vomiting Last Admin: 07/08/16 07:57 Dose: 4 mg Pantoprazole Sodium (Protonix Inj) 40 mg IVP Q12 [facility] Last Admin: 07/12/16 09:18 Dose: 40 mg Petrolatum (Desitin Maximum Strength Topical 40% Oint) 0.1 gm TOP BID [facility] Last Admin: 07/12/16 09:14 Dose: 1 appl - Labs Labs: 07/12/16 05:30 07/12/16 05:30 PT 10.8 Seconds (9.9-11.8) 07/09/16 21:30 INR 1.00 (0.93-1.08) 07/09/16 21:30 APTT 64.1 Seconds (23.7-30.8) H 07/12/16 05:30 Attending/Attestation - Attestation I have personally seen and examined this patient.: Yes I have fully participated in the care of the patient.: Yes I have reviewed all pertinent clinical information, including history, physical exam and plan: Yes Notes (Text): I have seen and examined patient at bedside. This is 51 year old male with history of substance abuse (snorts cocaine), tobacco, alcohol use who got admitted for evaluation of back pain and found to have epidural abscess T1-T5, osteomyelitis, urinary retention, acute RLE DVT. He underwent emergent laminectomy and epidural abscess was drained. Wound culture is growing strep pneumonia. He is on rocephin. Blood cultures are negative. HIV negative. He has no improvement in sensory or motor function. As per neurosurgery, prognosis is not good as patient did not regain function yet. Need aggressive PT. During his stay, patient was taken to EGD for evaluation of gastric distention and he coded after anesthesia. He got extubated yesterday. FOBT positive. NGT in place. Continue PPI. Will discuss with GI. He has been on heparin drip for acute RLE DVT and is s/p IVC filter. Will try to arrange for eliquis. Hypercoagulable work up still pending. CT chest, abdomen and pelvis negative. He has haque catheter for neurogenic bladder. Urology consult pending for possible suprapubic catheterization. Echo revealed Normal LVEF. Psych consult pending. CM are working on POA. He was also found to have stage 1 pressure ulcer on right gluteal area. Will start air mattress, mvi, zinc, vitamin c, zinc and continue to reposition q2 hours. Wound care consult pending. Dr Tutu Marc
--- NOTE | 2016-07-11 17:39 | RAD ---
Indication: NG placement Limited radiograph of the lower chest/upper abdomen Comparison: Chest x-ray performed earlier the same day Findings: Nasogastric tube is coiled within the expected location of the stomach. IVC filter present. Elevation of the right hemidiaphragm. Mild bibasilar atelectasis. No visible pleural effusion or definite pneumothorax. Limited visualization of the upper abdomen without evidence of free air. Specific bowel gas pattern. Osseous demineralization. Degenerative changes. Impression: Nasogastric tube appears coiled within the expected location of the stomach.
[2016-07-12] MEDS: Morphine 4 mg/ml ISec IVP PRN ×7 (02:57→22:19)
[2016-07-12 06:53] LABS: BASO # 0.02 K/mm3 (0.0-2.0); BASO % 0.2 % (0.0-3.0); EOS # 0.1 (0.0-0.7); EOS % 0.8 % (1.5-5.0); GRAN # 7.54 (1.4-6.5); GRAN % 76.2 % (50.0-68.0); HEMOGLOBIN 11.1 gm/dL (14.0-18.0); LYMPH # 1.5 (1.2-3.4); LYMPH % 14.8 % (22.0-35.0); MEAN CELL VOLUME 91.4 fL (80.0-105.0); MEAN CORPUSCULAR HEMOGLOBIN 30.8 pg (25.0-35.0); MEAN CORPUSCULAR HGB CONC 33.7 g/dl (31.0-37.0); MEAN PLATELET VOLUME 11.9 fl (7.0-11.0); MONO # 0.8 (0.1-0.6); PLATELET COUNT 225 10^3/uL (120.0-450.0); RED CELL DISTRIBUTION WIDTH 13.1 % (11.5-14.5); WHITE BLOOD COUNT 9.9 10^3/ul (4.5-11.0)
[2016-07-12 07:10] LABS: ALB/GLOB RATIO 0.8 (1.1-1.8); ALT/SGPT 67 U/L (7-56); AST/SGOT 49 U/L (15-59); BLOOD UREA NITROGEN 22 mg/dL (7-21); CALCIUM 8.6 mg/dL (8.4-10.5); GFR AFRICAN-AMERICAN > 60; GFR NON-AFRICAN AMERICAN > 60
[2016-07-12] MEDS: Heparin25000 units/250ml 1/2NS 250 ML IV PRN ×2 (08:35→17:50)
[2016-07-12] MEDS: Zinc Oxide Topical 40% Oint (Desitin) TOP SCH ×2 (09:14→18:49)
[2016-07-12] MEDS: guaiFENesin 600 mg ER Tab PO SCH ×2 (09:16→17:52)
[2016-07-12] MEDS: Bacitracin 500 Units/gm Oint Foilpak UD TOP SCH (09:18)
--- NOTE | 2016-07-12 10:31 | CP.PCM.PN ---
Subjective - Date & Time of Evaluation Date of Evaluation: 07/12/16 Time of Evaluation: 10:28 - Subjective Subjective: RFV: Ileus S: No acute events. NGT with continued drainage. Reports a small bm after receiving oral contrast. Denies abdominal pain. Continued abdominal distention. Objective - Vital Signs/Intake and Output Vital Signs (last 24 hours): Temp Pulse Resp BP Pulse Ox 98.5 F 71 15 127/75 99 07/12/16 04:00 07/12/16 05:44 07/12/16 05:02 07/12/16 09:18 07/12/16 05:02 Intake and Output: 07/12/16 07/12/16 06:59 18:59 Intake Total 1160 Output Total 1400 Balance -240 - Medications Medications: Current Medications Bacitracin (Bacitracin) 1 ea TOP DAILY [facility] Last Admin: 07/12/16 09:18 Dose: 1 ea Guaifenesin (Mucinex La) 600 mg PO BID [facility] Last Admin: 07/12/16 09:16 Dose: 600 mg Hydralazine HCl (Apresoline) 10 mg IVP Q6 PRN PRN Reason: FOR SBP>170 & Diastolic>100 Heparin Sodium/Sodium Chloride (Heparin 27811 Units/250ml 1/2 Normal Saline) 250 mls @ 19.006 mls/hr IV .[id number] PRN; Protocol; 14.35 UNITS/KG/HR PRN Reason: ADJUST RATE PER PROTOCOL Last Admin: 07/12/16 08:35 Dose: 29.536 mls/hr Dextrose/Sodium Chloride (Dextrose 5%/0.9% Ns 1000 Ml) 1,000 mls @ 50 mls/hr IV .Q20H [facility] Last Admin: 07/11/16 22:22 Dose: 50 mls/hr Ceftriaxone Sodium (Rocephin 2 Gm Ivpb) 100 mls @ 100 mls/hr IVPB Q12 [facility] PRN Reason: Protocol Stop: 08/08/16 10:01 Last Admin: 07/12/16 09:16 Dose: 100 mls/hr Metoprolol Tartrate (Lopressor) 25 mg PO BID [facility] Last Admin: 07/12/16 09:18 Dose: 25 mg Morphine Sulfate (Morphine) 2 mg IVP Q3H PRN PRN Reason: Pain, moderate (4-7) Morphine Sulfate (Morphine) 4 mg IVP Q3H PRN PRN Reason: Pain, severe (8-10) Last Admin: 07/12/16 09:47 Dose: 4 mg Ondansetron HCl (Zofran Inj) 4 mg IVP Q8H PRN PRN Reason: Nausea/Vomiting Last Admin: 07/08/16 07:57 Dose: 4 mg Pantoprazole Sodium (Protonix Inj) 40 mg IVP Q12 [facility] Last Admin: 07/12/16 09:18 Dose: 40 mg Petrolatum (Desitin Maximum Strength Topical 40% Oint) 0.1 gm TOP BID [facility] Last Admin: 07/12/16 09:14 Dose: 1 appl - Labs Labs: 07/12/16 05:30 07/12/16 05:30 PT 10.8 Seconds (9.9-11.8) 07/09/16 21:30 INR 1.00 (0.93-1.08) 07/09/16 21:30 APTT 64.1 Seconds (23.7-30.8) H 07/12/16 05:30 - Constitutional Appears: Non-toxic, Chronically Ill - Head Exam Head Exam: NORMAL INSPECTION - Eye Exam Eye Exam: absent: Scleral icterus Pupil Exam: PERRL - Respiratory Exam Respiratory Exam: NORMAL BREATHING PATTERN. absent: Clear to Ausculation Bilateral, Wheezes - Cardiovascular Exam Cardiovascular Exam: REGULAR RHYTHM, +S1, +S2 - GI/Abdominal Exam GI & Abdominal Exam: Distended, Soft. absent: Guarding, Tenderness - Skin Skin Exam: Normal Color, Warm Assessment and Plan - Assessment and Plan (Free Text) Assessment: 51 year old male with h/o Obesity, Polysubstance abuse, Epidural abscess, cord compression, osteomyelitis, and pneumonia, also with paralytic ileus. 1. Paralytic ileus Plan: - NPO - Continue with NGT decompression - Continue with antibiotics - Continue with PPI therapy - Conidering cardiac arrest during attempted anasthesia for endoscopy, would defer endoscopy at this time - May consider starting promotility agents like reglan
--- NOTE | 2016-07-12 12:40 | CP.PCM.PN ---
<FaisalClara - Last Filed: 07/12/16 12:53> Subjective - Date & Time of Evaluation Date of Evaluation: 07/12/16 Time of Evaluation: 08:45 - Subjective Subjective: Pt seen and evaluated at the bedside. Pt has c/o of "stiff body" and denies abdominal pain. Afebrile overnight and reports BM overnight. Objective - Vital Signs/Intake and Output Vital Signs (last 24 hours): Temp Pulse Resp BP Pulse Ox 98.5 F 56 L 19 127/75 95 07/12/16 04:00 07/12/16 10:00 07/12/16 10:00 07/12/16 09:18 07/12/16 10:00 Intake and Output: 07/12/16 07/12/16 06:59 18:59 Intake Total 1160 Output Total 1400 Balance -240 - Medications Medications: Current Medications Bacitracin (Bacitracin) 1 ea TOP DAILY [facility] Last Admin: 07/12/16 09:18 Dose: 1 ea Guaifenesin (Mucinex La) 600 mg PO BID [facility] Last Admin: 07/12/16 09:16 Dose: 600 mg Hydralazine HCl (Apresoline) 10 mg IVP Q6 PRN PRN Reason: FOR SBP>170 & Diastolic>100 Heparin Sodium/Sodium Chloride (Heparin 73437 Units/250ml 1/2 Normal Saline) 250 mls @ 19.006 mls/hr IV .[id number] PRN; Protocol; 14.35 UNITS/KG/HR PRN Reason: ADJUST RATE PER PROTOCOL Last Admin: 07/12/16 08:35 Dose: 29.536 mls/hr Dextrose/Sodium Chloride (Dextrose 5%/0.9% Ns 1000 Ml) 1,000 mls @ 50 mls/hr IV .Q20H [facility] Last Admin: 07/11/16 22:22 Dose: 50 mls/hr Ceftriaxone Sodium (Rocephin 2 Gm Ivpb) 100 mls @ 100 mls/hr IVPB Q12 [facility] PRN Reason: Protocol Stop: 08/08/16 10:01 Last Admin: 07/12/16 09:16 Dose: 100 mls/hr Metoprolol Tartrate (Lopressor) 25 mg PO BID [facility] Last Admin: 07/12/16 09:18 Dose: 25 mg Morphine Sulfate (Morphine) 2 mg IVP Q3H PRN PRN Reason: Pain, moderate (4-7) Morphine Sulfate (Morphine) 4 mg IVP Q3H PRN PRN Reason: Pain, severe (8-10) Last Admin: 07/12/16 09:47 Dose: 4 mg Ondansetron HCl (Zofran Inj) 4 mg IVP Q8H PRN PRN Reason: Nausea/Vomiting Last Admin: 07/08/16 07:57 Dose: 4 mg Pantoprazole Sodium (Protonix Inj) 40 mg IVP Q12 [facility] Last Admin: 07/12/16 09:18 Dose: 40 mg Petrolatum (Desitin Maximum Strength Topical 40% Oint) 0.1 gm TOP BID [facility] Last Admin: 07/12/16 09:14 Dose: 1 appl - Labs Labs: 07/12/16 05:30 07/12/16 05:30 PT 10.8 Seconds (9.9-11.8) 07/09/16 21:30 INR 1.00 (0.93-1.08) 07/09/16 21:30 APTT 64.1 Seconds (23.7-30.8) H 07/12/16 05:30 - Additional Findings Additional findings: - Constitutional Appears: No Acute Distress - Head Exam Head Exam: ATRAUMATIC, NORMAL INSPECTION, NORMOCEPHALIC - Eye Exam Eye Exam: EOMI, Normal appearance, PERRL Pupil Exam: NORMAL ACCOMODATION, PERRL - ENT Exam ENT Exam: NGT in place. Mucous Membranes Moist, Normal Exam - Neck Exam Neck Exam: Full ROM, Normal Inspection. absent: Lymphadenopathy - Respiratory Exam Respiratory Exam: Clear to Ausculation Bilateral, NORMAL BREATHING PATTERN - Cardiovascular Exam Cardiovascular Exam: REGULAR RHYTHM, +S1, +S2. absent: Murmur - GI/Abdominal Exam GI & Abdominal Exam: Distended, Soft, Normal Bowel Sounds. absent: Firm, Guarding, Rigid, Tenderness, Mass, Rebound - Exam Additional comments: Haque in place - Extremities Exam Extremities Exam: Normal Capillary Refill. absent: Joint Swelling, Pedal Edema , Tenderness Additional comments: LE: Decreased sensation . No motor function - Back Exam Additional comments: Dressing C/D/I - Neurological Exam Neurological Exam: Alert, Awake, CN II-XII Intact, Motor Sensory Deficit, Oriented x3. absent: Normal Gait, Reflexes Normal - Psychiatric Exam Psychiatric exam: Normal Affect, Normal Mood - Skin Skin Exam: Dry, Intact, Normal Color, Warm Assessment and Plan - Assessment and Plan (Free Text) Plan: 51 year old male with no significant past medical history is s/p T2-T4 lamenectomy POD #5 (07/07/2016), and has osteomyelitis, and urinary retention US of LE showed R LE DVT. Hemeoccult positive. Billious draining from NG tube Echo: Normal LVEF Plan: Epidural space abscess s/p lamenectomy T2-T4 POD #5 - Wound cultures grew strep pneumo - Pathology is pending - Will continue antibiotics Rocephin per ID - CT of chest/abd/pelvis is negative for malignancy -ID -MRI c/ and w/o contrast on 07/07 prior to procedure showed fluid collection in ventral epidural space from T1-T5 with cord compression and obliteration of subarachinoid space; abnormal signal in T3&T4 which may represent osteomyelitis vs. metastatic dz; no disc herniation, spinal canal stenosis or neuroforaminal narrowing. Lumbar spine MRI was negative for cauda equina. Please see full reports for details. Paralysis in LE - Will continue to monitor - PT/OT - boots are in place and pt is being turned to prevent stress ulcers Paralytic ileus - GI is consulted, who is deferring endoscopy due to coding after anesthesia during EGD attempt during same hospital stay -continue PPI -NGT - Heme occult is positive for blood. Will continue to monitor Hgb. Neurogenic bladder - Haque in place - Urology is consulted for possible suprapubic catheterization R LE DVT -s/pIVC filter - Pt is on heparin drip and closely monitored for bleeding - Heme consult, Dr. Warren requested. - 07/06 US of LE showed thrombus in right common and proximal femoral vein Stage 1 pressure ulcer on right gluteal area air mattress, mvi, zinc, vitamin c, zinc and continue to reposition q2 hours. Wound care consult Prophylaxis - Protonix - heparin drip Case discussed with attending, Dr. Tutu Marc <Tutu Marc - Last Filed: 07/12/16 15:33> Objective - Vital Signs/Intake and Output Vital Signs (last 24 hours): Temp Pulse Resp BP Pulse Ox 98.3 F 62 24 112/70 99 07/12/16 13:47 07/12/16 13:47 07/12/16 13:47 07/12/16 13:47 07/12/16 13:00 Intake and Output: 07/12/16 07/12/16 06:59 18:59 Intake Total 1160 632 Output Total 1400 710 Balance -240 -78 - Medications Medications: Current Medications Bacitracin (Bacitracin) 1 ea TOP DAILY [facility] Last Admin: 07/12/16 09:18 Dose: 1 ea Guaifenesin (Mucinex La) 600 mg PO BID [facility] Last Admin: 07/12/16 09:16 Dose: 600 mg Hydralazine HCl (Apresoline) 10 mg IVP Q6 PRN PRN Reason: FOR SBP>170 & Diastolic>100 Heparin Sodium/Sodium Chloride (Heparin 83418 Units/250ml 1/2 Normal Saline) 250 mls @ 19.006 mls/hr IV .[id number] PRN; Protocol; 14.35 UNITS/KG/HR PRN Reason: ADJUST RATE PER PROTOCOL Last Admin: 07/12/16 08:35 Dose: 29.536 mls/hr Dextrose/Sodium Chloride (Dextrose 5%/0.9% Ns 1000 Ml) 1,000 mls @ 50 mls/hr IV .Q20H [facility] Last Admin: 07/11/16 22:22 Dose: 50 mls/hr Ceftriaxone Sodium (Rocephin 2 Gm Ivpb) 100 mls @ 100 mls/hr IVPB Q12 [facility] PRN Reason: Protocol Stop: 08/08/16 10:01 Last Admin: 07/12/16 09:16 Dose: 100 mls/hr Metoprolol Tartrate (Lopressor) 25 mg PO BID [facility] Last Admin: 07/12/16 09:18 Dose: 25 mg Morphine Sulfate (Morphine) 2 mg IVP Q3H PRN PRN Reason: Pain, moderate (4-7) Morphine Sulfate (Morphine) 4 mg IVP Q3H PRN PRN Reason: Pain, severe (8-10) Last Admin: 07/12/16 12:49 Dose: 4 mg Ondansetron HCl (Zofran Inj) 4 mg IVP Q8H PRN PRN Reason: Nausea/Vomiting Last Admin: 07/08/16 07:57 Dose: 4 mg Pantoprazole Sodium (Protonix Inj) 40 mg IVP Q12 [facility] Last Admin: 07/12/16 09:18 Dose: 40 mg Petrolatum (Desitin Maximum Strength Topical 40% Oint) 0.1 gm TOP BID [facility] Last Admin: 07/12/16 09:14 Dose: 1 appl - Labs Labs: 07/12/16 05:30 07/12/16 05:30 PT 10.8 Seconds (9.9-11.8) 07/09/16 21:30 INR 1.00 (0.93-1.08) 07/09/16 21:30 APTT 64.1 Seconds (23.7-30.8) H 07/12/16 05:30 Attending/Attestation - Attestation I have personally seen and examined this patient.: Yes I have fully participated in the care of the patient.: Yes I have reviewed all pertinent clinical information, including history, physical exam and plan: Yes Notes (Text): I have seen and examined patient at bedside. This is 51 year old male with history of substance abuse (snorts cocaine), tobacco, alcohol use who got admitted for evaluation of back pain and found to have epidural abscess T1-T5, osteomyelitis, urinary retention, acute RLE DVT. He underwent emergent laminectomy and epidural abscess was drained. Wound culture is growing strep pneumonia. He is on rocephin. Blood cultures are negative. HIV negative. He has no improvement in sensory or motor function. As per neurosurgery, prognosis is not good as patient did not regain function yet. Need aggressive PT. During his stay, patient was taken to EGD for evaluation of gastric distention and he coded after anesthesia. He got extubated 2 days ago.FOBT positive. Patient has paralytic ileus. NGT in place and patient is npo. Continue PPI. Will discuss with GI. He has been on heparin drip for acute RLE DVT and is s/p IVC filter. Will try to arrange for eliquis on Thursday. Hypercoagulable work up still pending. CT chest, abdomen and pelvis negative. He has haque catheter for neurogenic bladder. Urology consult pending for possible suprapubic catheterization. Echo revealed Normal LVEF. Psych consult pending. CM are working on POA. He was also found to have stage 1 pressure ulcer on right gluteal area. Will continue air mattress, mvi, zinc, vitamin c, zinc and continue to reposition q2 hours. Wound care consult pending. Dr Tutu Marc
--- NOTE | 2016-07-12 14:02 | PN ---
DATE: 07/12/2016 The patient is in bed in no acute distress, nontoxic. PHYSICAL EXAMINATION: VITAL SIGNS: Temperature is 98, blood pressure is 120/70, respiratory rate of 16. HEENT: Unremarkable. NECK: Supple. LUNGS: Have decreased breath sounds. HEART: Normal S1, S2. ABDOMEN: Soft, nontender. LABORATORY DATA: Reveals a white count of 9.9, hemoglobin of 11, platelets of 225. Chemistries reve al BUN of 22, creatinine of 0.8. ASSESSMENT AND PLAN: This is a 51-year-old male admitted with long history of smoking and alcohol ab use and tobacco use and admitted with a cord compression, lower extremity paralysis, was taken to the OR, had a laminectomy, found to have an epidural abscess which is growing streptococcal pneumonia, o steomyelitis, had a deep venous thrombosis, had an inferior vena cava filter placement and currently on ceftriaxone 2 grams IV q. 12. Blood cultures are negative. The patient had a CAT scan of the abd omen and pelvis and the patient had an echocardiogram unremarkable. The echocardiogram was read by Eugenio Barbour in this patient who has cord compression, strep pneumonia, epidural abscess, lower extremity paralysis and with a deep venous thrombosis in the right common femoral vein and proximal right femor al vein deep venous thrombosis, status post laminectomy and on ceftriaxone. Dr. Moses's note is revi ewed. Dr. Malone's note is reviewed. Dr. Sumner's note is reviewed. The patient now with ileus, NG tu be for decompression. Will follow closely with you. Review of the orders confirms the patient's cef triaxone to be active. Will need prolonged antibiotics with weekly CBC, SMA 18, sed rate and C-react anatoly protein weekly and follow closely for complications of the ceftriaxone therapy. Repeat imaging. Colt Coronel MD cc: [phone] TT: 07/12/2016 14:01:27 Confirmation # [id number] Dictation # [id number]
[2016-07-12] MEDS: Dextrose 5%/0.9% NS 1,000 ML IV SCH (17:52)
[2016-07-13] MEDS: Heparin25000 units/250ml 1/2NS 250 ML IV PRN ×3 (02:15→19:51)
[2016-07-13] MEDS: Morphine 4 mg/ml ISec IVP PRN ×5 (04:12→21:39)
[2016-07-13 07:23] LABS: BASO # 0.03 K/mm3 (0.0-2.0); BASO % 0.3 % (0.0-3.0); EOS # 0.1 (0.0-0.7); EOS % 1.4 % (1.5-5.0); GRAN # 6.53 (1.4-6.5); GRAN % 76.1 % (50.0-68.0); HEMOGLOBIN 11.2 gm/dL (14.0-18.0); LYMPH # 1.1 (1.2-3.4); LYMPH % 13.1 % (22.0-35.0); MEAN CELL VOLUME 91.6 fL (80.0-105.0); MEAN CORPUSCULAR HEMOGLOBIN 30.5 pg (25.0-35.0); MEAN CORPUSCULAR HGB CONC 33.3 g/dl (31.0-37.0); MEAN PLATELET VOLUME 12.1 fl (7.0-11.0); MONO # 0.8 (0.1-0.6); MONO % 9.1 % (1.0-6.0); PLATELET COUNT 244 10^3/uL (120.0-450.0); RBC 3.67 10^6/uL (3.5-6.1); RED CELL DISTRIBUTION WIDTH 13.4 % (11.5-14.5); WHITE BLOOD COUNT 8.6 10^3/ul (4.5-11.0)
[2016-07-13 07:25] LABS: ALB/GLOB RATIO 0.9 (1.1-1.8); ALBUMIN 3.4 g/dL (3.0-4.8); ALT/SGPT 60 U/L (7-56); AST/SGOT 39 U/L (15-59); BLOOD UREA NITROGEN 21 mg/dL (7-21); CALCIUM 8.8 mg/dL (8.4-10.5); GFR AFRICAN-AMERICAN > 60; GFR NON-AFRICAN AMERICAN > 60
[2016-07-13] MEDS: Bacitracin 500 Units/gm Oint Foilpak UD TOP SCH (09:48)
[2016-07-13] MEDS: Zinc Oxide Topical 40% Oint (Desitin) TOP SCH ×2 (09:48→19:05)
[2016-07-13] MEDS: guaiFENesin 600 mg ER Tab PO SCH ×2 (09:50→19:05)
--- NOTE | 2016-07-13 11:33 | CP.PCM.PN ---
Subjective - Date & Time of Evaluation Date of Evaluation: 07/13/16 Time of Evaluation: 11:30 - Subjective Subjective: RFV: Ileus S: 1 liter of NG output overnight. Started on reglan. No bm. No abdominal pain. Feels ok. Reports improved lower extremity sensation Objective - Vital Signs/Intake and Output Vital Signs (last 24 hours): Temp Pulse Resp BP Pulse Ox 99.2 F 67 20 97/48 L 95 07/13/16 05:36 07/13/16 05:40 07/13/16 05:36 07/13/16 09:49 07/13/16 05:36 Intake and Output: 07/13/16 07/13/16 06:59 18:59 Intake Total 1054 Output Total 2950 Balance -1896 - Medications Medications: Current Medications Bacitracin (Bacitracin) 1 ea TOP DAILY [facility] Last Admin: 07/13/16 09:48 Dose: 1 ea Guaifenesin (Mucinex La) 600 mg PO BID [facility] Last Admin: 07/13/16 09:50 Dose: 600 mg Hydralazine HCl (Apresoline) 10 mg IVP Q6 PRN PRN Reason: FOR SBP>170 & Diastolic>100 Heparin Sodium/Sodium Chloride (Heparin 90281 Units/250ml 1/2 Normal Saline) 250 mls @ 19.006 mls/hr IV .[id number] PRN; Protocol; 14.35 UNITS/KG/HR PRN Reason: ADJUST RATE PER PROTOCOL Last Admin: 07/13/16 11:08 Dose: 29.536 mls/hr Dextrose/Sodium Chloride (Dextrose 5%/0.9% Ns 1000 Ml) 1,000 mls @ 50 mls/hr IV .Q20H [facility] Last Admin: 07/12/16 17:52 Dose: 50 mls/hr Ceftriaxone Sodium (Rocephin 2 Gm Ivpb) 100 mls @ 100 mls/hr IVPB Q12 [facility] PRN Reason: Protocol Stop: 08/08/16 10:01 Last Admin: 07/13/16 09:50 Dose: 100 mls/hr Metoprolol Tartrate (Lopressor) 25 mg PO BID [facility] Last Admin: 07/13/16 09:49 Dose: Not Given Morphine Sulfate (Morphine) 2 mg IVP Q3H PRN PRN Reason: Pain, moderate (4-7) Last Admin: 07/13/16 01:20 Dose: 2 mg Morphine Sulfate (Morphine) 4 mg IVP Q3H PRN PRN Reason: Pain, severe (8-10) Last Admin: 07/13/16 07:08 Dose: 4 mg Ondansetron HCl (Zofran Inj) 4 mg IVP Q8H PRN PRN Reason: Nausea/Vomiting Last Admin: 07/08/16 07:57 Dose: 4 mg Pantoprazole Sodium (Protonix Inj) 40 mg IVP Q12 [facility] Last Admin: 07/13/16 09:50 Dose: 40 mg Petrolatum (Desitin Maximum Strength Topical 40% Oint) 0.1 gm TOP BID [facility] Last Admin: 07/13/16 09:48 Dose: 1 appl - Labs Labs: 07/13/16 06:57 07/13/16 06:57 PT 10.8 Seconds (9.9-11.8) 07/09/16 21:30 INR 1.00 (0.93-1.08) 07/09/16 21:30 APTT 64.1 Seconds (23.7-30.8) H 07/12/16 05:30 - Constitutional Appears: No Acute Distress, Chronically Ill - Head Exam Head Exam: ATRAUMATIC, NORMOCEPHALIC - Eye Exam Eye Exam: Normal appearance. absent: Scleral icterus - ENT Exam ENT Exam: Mucous Membranes Moist, Normal Oropharynx - Respiratory Exam Respiratory Exam: NORMAL BREATHING PATTERN. absent: Wheezes, Respiratory Distress - Cardiovascular Exam Cardiovascular Exam: +S1, +S2 - GI/Abdominal Exam GI & Abdominal Exam: Distended, Soft. absent: Guarding, Tenderness - Neurological Exam Neurological Exam: Alert, Oriented x3 Assessment and Plan - Assessment and Plan (Free Text) Assessment: 51 year old male with h/o Obesity, Polysubstance abuse, Epidural abscess, cord compression, osteomyelitis, and pneumonia, also with paralytic ileus. 1. Paralytic ileus Plan: - Continue Reglan 5 mg ACHS, if no improvement, titrate up to 10 mg ACHS - consider clamping NG and doing a trial of liquids - Continue with antibiotics - Continue with PPI therapy - Conidering cardiac arrest during attempted anasthesia for endoscopy, would defer endoscopy at this time
--- NOTE | 2016-07-13 12:04 | RAD ---
HISTORY: Lung infiltrates COMPARISON: FINDINGS: LUNGS: Elevation right hemidiaphragm again noted possibly due to eventration. There appears to be some mild bibasilar atelectasis however developing infiltrates could be excluded with followup radiographs. Questionable tiny right effusion In situ NGT, the tip of which appears coiled within the stomach. Multiple metallic skin closure eileen seen over the mid and left parasagittal lower cervical/upper mediastinum questionable tiny right effusion PLEURA: No pneumothorax apparent. CARDIOVASCULAR: Heart size unchanged. OSSEOUS STRUCTURES: No significant abnormalities. VISUALIZED UPPER ABDOMEN: Normal. OTHER FINDINGS: None. IMPRESSION: Elevation right hemidiaphragm again noted possibly due to eventration. There appears to be some mild bibasilar atelectasis however developing infiltrates could be excluded with followup radiographs. Questionable tiny right effusion In situ NGT, the tip of which appears coiled within the stomach. Multiple metallic skin closure eileen seen over the mid and left parasagittal lower cervical/upper mediastinum
--- NOTE | 2016-07-13 12:57 | CP.PCM.PN ---
<Keri Guzman - Last Filed: 07/13/16 13:13> Subjective - Date & Time of Evaluation Date of Evaluation: 07/13/16 Time of Evaluation: 12:57 - Subjective Subjective: HOSPITALIST PROGRESS NOTE Pt is seen and examined at bedside. Patient is resting comfortably. He is not able to move is LE and is still not able to feel any sensation in LE. Patient denies having any CP, SOB, abd pain. NG tube in place and drained about 1 L overnight. Haque in place and rained 2600 overnight. Patient is still NPO. States that he had small BM a few days ago. Objective - Vital Signs/Intake and Output Vital Signs (last 24 hours): Temp Pulse Resp BP Pulse Ox 98.6 F 69 20 148/84 95 07/13/16 12:00 07/13/16 12:00 07/13/16 12:00 07/13/16 12:00 07/13/16 05:36 Intake and Output: 07/13/16 07/13/16 06:59 18:59 Intake Total 1054 Output Total 2950 Balance -1896 - Medications Medications: Current Medications Bacitracin (Bacitracin) 1 ea TOP DAILY [facility] Last Admin: 07/13/16 09:48 Dose: 1 ea Guaifenesin (Mucinex La) 600 mg PO BID [facility] Last Admin: 07/13/16 09:50 Dose: 600 mg Hydralazine HCl (Apresoline) 10 mg IVP Q6 PRN PRN Reason: FOR SBP>170 & Diastolic>100 Heparin Sodium/Sodium Chloride (Heparin 00975 Units/250ml 1/2 Normal Saline) 250 mls @ 19.006 mls/hr IV .[id number] PRN; Protocol; 14.35 UNITS/KG/HR PRN Reason: ADJUST RATE PER PROTOCOL Last Admin: 07/13/16 11:08 Dose: 29.536 mls/hr Dextrose/Sodium Chloride (Dextrose 5%/0.9% Ns 1000 Ml) 1,000 mls @ 50 mls/hr IV .Q20H [facility] Last Admin: 07/12/16 17:52 Dose: 50 mls/hr Ceftriaxone Sodium (Rocephin 2 Gm Ivpb) 100 mls @ 100 mls/hr IVPB Q12 [facility] PRN Reason: Protocol Stop: 08/08/16 10:01 Last Admin: 07/13/16 09:50 Dose: 100 mls/hr Metoclopramide HCl (Reglan) 5 mg IVP ACHS [facility] Last Admin: 07/13/16 11:41 Dose: 5 mg Metoprolol Tartrate (Lopressor) 25 mg PO BID [facility] Last Admin: 07/13/16 09:49 Dose: Not Given Morphine Sulfate (Morphine) 2 mg IVP Q3H PRN PRN Reason: Pain, moderate (4-7) Last Admin: 07/13/16 01:20 Dose: 2 mg Morphine Sulfate (Morphine) 4 mg IVP Q3H PRN PRN Reason: Pain, severe (8-10) Last Admin: 07/13/16 11:40 Dose: 4 mg Ondansetron HCl (Zofran Inj) 4 mg IVP Q8H PRN PRN Reason: Nausea/Vomiting Last Admin: 07/08/16 07:57 Dose: 4 mg Pantoprazole Sodium (Protonix Inj) 40 mg IVP Q12 [facility] Last Admin: 07/13/16 09:50 Dose: 40 mg Petrolatum (Desitin Maximum Strength Topical 40% Oint) 0.1 gm TOP BID [facility] Last Admin: 07/13/16 09:48 Dose: 1 appl - Labs Labs: 07/13/16 06:57 07/13/16 06:57 PT 10.8 Seconds (9.9-11.8) 07/09/16 21:30 INR 1.00 (0.93-1.08) 07/09/16 21:30 APTT 64.1 Seconds (23.7-30.8) H 07/12/16 05:30 - Constitutional Appears: Non-toxic, No Acute Distress - Head Exam Head Exam: ATRAUMATIC - ENT Exam ENT Exam: Mucous Membranes Moist - Respiratory Exam Respiratory Exam: Rhonchi. absent: Rales, Wheezes, Respiratory Distress - Cardiovascular Exam Cardiovascular Exam: REGULAR RHYTHM, +S1, +S2. absent: Gallop, Rubs, Murmur - GI/Abdominal Exam GI & Abdominal Exam: Distended, Soft. absent: Firm, Rigid - Extremities Exam Extremities Exam: absent: Pedal Edema, Tenderness - Neurological Exam Neurological Exam: Alert, Awake, Oriented x3 - Psychiatric Exam Psychiatric exam: Normal Affect, Normal Mood - Skin Skin Exam: Dry, Intact, Normal Color, Warm Assessment and Plan - Assessment and Plan (Free Text) Assessment: Assessment: 51 year old male with no significant past medical history is s/p T2-T4 lamenectomy POD #3 US of LE showed R LE DVT. Hemeoccult positive. Black fluid draining from NG tube Plan: 1. Epidural space abscess s/p lamenectomy T2-T4 POD #6 - Wound cultures grew strep pneumo - Pathology is pending - Will continue antibioticsrocephin per ID - CT of chest/abd/pelvis is negative for malignancy -ID is consulted -MRI c/ and w/o contrast on 4 prior to procedure showed fluid collection in ventral epidural space from T1-T5 with cord compression and obliteration of subarachinoid space; abnormal signal in T3&T4 which may represent osteomyelitis vs. metastatic dz; no disc herniation, spinal canal stenosis or neuroforaminal narrowing. Lumbar spine MRI was negative for cauda equina. Please see full reports for details. 2. Paralysis in LE - Will continue to monitor. - Aggressive PT/OT - boots are in place and pt is being turned to prevent stress ulcers 3. Neurogenic bowel vs. ileus - GI is consulted. No plan for EGD at this time as he coded during last attempt - Heme occult is positive for blood. Will continue to monitor Hgb. - NG tube in place. - Started Reglan 5 mg IV ACHS - Will consider feeding trial 5. Neurogenic bladder - Haque in place - Urology is consulted. Awaiting recs about suprapubic catherization 6. R LE DVT - IVC filter placed - Pt is on heparin drip and closely monitored for bleeding - will start Eliquis on Thursday - Heme consult, Dr. Warren requested. - 07/06 US of LE showed thrombus in right common and proximal femoral vein 7. CP R/O ACS - Cardio is consulted - Echo showed EF of 63.5%, normal LV, trace AR, MR and TR - Hgb A1c is 6.3 8. Iron deficiency anemia - Will cont to monitor at this time - Iron 35 (low), TIBC 325 (normal), Ferritin 11 (low), Vit B12 327 (Normal), folate 7.8 (normal) 9. Stage 1 pressure ulcer on Right gluteal region - air mattress - continue to reposition q2 - multivit, zinv, vitamin C - Wound care pending 10. Prophylaxis - Protonix - heparin drip Case discussed with attending, Dr. Tutu Marc <Tutu Marc - Last Filed: 07/13/16 14:44> Objective - Vital Signs/Intake and Output Vital Signs (last 24 hours): Temp Pulse Resp BP Pulse Ox 98.6 F 69 20 148/84 95 07/13/16 12:00 07/13/16 12:00 07/13/16 12:00 07/13/16 12:00 07/13/16 05:36 Intake and Output: 07/13/16 07/13/16 06:59 18:59 Intake Total 1054 Output Total 2950 Balance -1896 - Medications Medications: Current Medications Bacitracin (Bacitracin) 1 ea TOP DAILY [facility] Last Admin: 07/13/16 09:48 Dose: 1 ea Guaifenesin (Mucinex La) 600 mg PO BID [facility] Last Admin: 07/13/16 09:50 Dose: 600 mg Hydralazine HCl (Apresoline) 10 mg IVP Q6 PRN PRN Reason: FOR SBP>170 & Diastolic>100 Heparin Sodium/Sodium Chloride (Heparin 14800 Units/250ml 1/2 Normal Saline) 250 mls @ 19.006 mls/hr IV .[id number] PRN; Protocol; 14.35 UNITS/KG/HR PRN Reason: ADJUST RATE PER PROTOCOL Last Admin: 07/13/16 11:08 Dose: 29.536 mls/hr Dextrose/Sodium Chloride (Dextrose 5%/0.9% Ns 1000 Ml) 1,000 mls @ 50 mls/hr IV .Q20H [facility] Last Admin: 07/12/16 17:52 Dose: 50 mls/hr Ceftriaxone Sodium (Rocephin 2 Gm Ivpb) 100 mls @ 100 mls/hr IVPB Q12 [facility] PRN Reason: Protocol Stop: 08/08/16 10:01 Last Admin: 07/13/16 09:50 Dose: 100 mls/hr Metoclopramide HCl (Reglan) 5 mg IVP ACHS [facility] Last Admin: 07/13/16 11:41 Dose: 5 mg Metoprolol Tartrate (Lopressor) 25 mg PO BID [facility] Last Admin: 07/13/16 09:49 Dose: Not Given Morphine Sulfate (Morphine) 2 mg IVP Q3H PRN PRN Reason: Pain, moderate (4-7) Last Admin: 07/13/16 01:20 Dose: 2 mg Morphine Sulfate (Morphine) 4 mg IVP Q3H PRN PRN Reason: Pain, severe (8-10) Last Admin: 07/13/16 11:40 Dose: 4 mg Ondansetron HCl (Zofran Inj) 4 mg IVP Q8H PRN PRN Reason: Nausea/Vomiting Last Admin: 07/08/16 07:57 Dose: 4 mg Pantoprazole Sodium (Protonix Inj) 40 mg IVP Q12 [facility] Last Admin: 07/13/16 09:50 Dose: 40 mg Petrolatum (Desitin Maximum Strength Topical 40% Oint) 0.1 gm TOP BID [facility] Last Admin: 07/13/16 09:48 Dose: 1 appl - Labs Labs: 07/13/16 06:57 07/13/16 06:57 PT 10.8 Seconds (9.9-11.8) 07/09/16 21:30 INR 1.00 (0.93-1.08) 07/09/16 21:30 APTT 64.1 Seconds (23.7-30.8) H 07/12/16 05:30 Attending/Attestation - Attestation I have personally seen and examined this patient.: Yes I have fully participated in the care of the patient.: Yes I have reviewed all pertinent clinical information, including history, physical exam and plan: Yes Notes (Text): I have seen and examined patient at bedside. This is 51 year old male with history of substance abuse (snorts cocaine), tobacco, alcohol use who got admitted for evaluation of back pain and found to have epidural abscess T1-T5, osteomyelitis, urinary retention, acute RLE DVT. He underwent emergent laminectomy and epidural abscess was drained. Wound culture is growing strep pneumonia. He is on rocephin. Blood cultures are negative. HIV negative. He has no improvement in sensory or motor function. As per neurosurgery, prognosis is not good as patient did not regain function yet. Need aggressive PT. During his stay, patient was taken to EGD for evaluation of gastric distention and he coded after anesthesia. He got extubated 2 days ago. FOBT positive. Patient has paralytic ileus. NGT in place and patient is npo. Continue PPI. Will start reglan today. He has been on heparin drip for acute RLE DVT and is s/p IVC filter. Will try to arrange for eliquis tomorrow. Hypercoagulable work up still pending. CT chest, abdomen and pelvis negative. He has haque catheter for neurogenic bladder. Urology consult pending for possible suprapubic catheterization. Echo revealed Normal LVEF. Psych consult pending. CM are working on POA. He was also found to have stage 1 pressure ulcer on right gluteal area. Will continue air mattress, mvi, zinc, vitamin c, zinc and continue to reposition q2 hours. Wound care consult pending. Dr Tutu Marc
[2016-07-13] MEDS: Dextrose 5%/0.9% NS 1,000 ML IV SCH (14:32)
[2016-07-13] MEDS: Albuterol-Ipratrop 3 mg / 0.5 (3 ml) UD IH SCH (21:00)
[2016-07-14] MEDS: Morphine 4 mg/ml ISec IVP PRN ×6 (00:49→21:07)
[2016-07-14] MEDS: Albuterol-Ipratrop 3 mg / 0.5 (3 ml) UD IH SCH ×4 (02:15→20:37)
[2016-07-14] MEDS: Heparin25000 units/250ml 1/2NS 250 ML IV PRN ×2 (06:16→16:28)
--- NOTE | 2016-07-14 07:03 | CP.PCM.PN ---
<NorbertoSavannah - Last Filed: 07/14/16 08:33> Subjective - Date & Time of Evaluation Date of Evaluation: 07/14/16 Time of Evaluation: 06:59 - Subjective Subjective: Gastroenterology Fellow/PGY4 Progress Note Patient notes improving lower extremities sensation to feet. Patient denies bowel movement overnight noting last BM with contrast for CT on 07/10. Nursing denies bowel movement overnight though one is documented. 650cc NG output last 24 hours. 12-point review of systems negative except for as above. Objective - Vital Signs/Intake and Output Vital Signs (last 24 hours): Temp Pulse Resp BP Pulse Ox 98 F 97 H 20 141/73 93 L 07/14/16 00:01 07/14/16 06:00 07/14/16 00:01 07/14/16 00:01 07/14/16 00:01 Intake and Output: 07/13/16 07/14/16 18:59 06:59 Intake Total 0 1882 Output Total 800 650 Balance -800 1232 - Medications Medications: Current Medications Albuterol/Ipratropium (Duoneb 3 Mg/0.5 Mg (3 Ml) Ud) 3 ml IH [id number] [facility] Last Admin: 07/14/16 02:15 Dose: 3 ml Bacitracin (Bacitracin) 1 ea TOP DAILY [facility] Last Admin: 07/13/16 09:48 Dose: 1 ea Guaifenesin (Mucinex La) 600 mg PO BID [facility] Last Admin: 07/13/16 19:05 Dose: 600 mg Hydralazine HCl (Apresoline) 10 mg IVP Q6 PRN PRN Reason: FOR SBP>170 & Diastolic>100 Heparin Sodium/Sodium Chloride (Heparin 72381 Units/250ml 1/2 Normal Saline) 250 mls @ 19.006 mls/hr IV .[id number] PRN; Protocol; 14.35 UNITS/KG/HR PRN Reason: ADJUST RATE PER PROTOCOL Last Admin: 07/14/16 06:16 Dose: 29.536 mls/hr Dextrose/Sodium Chloride (Dextrose 5%/0.9% Ns 1000 Ml) 1,000 mls @ 50 mls/hr IV .Q20H [facility] Last Admin: 07/13/16 14:32 Dose: 50 mls/hr Ceftriaxone Sodium (Rocephin 2 Gm Ivpb) 100 mls @ 100 mls/hr IVPB Q12 [facility] PRN Reason: Protocol Stop: 08/08/16 10:01 Last Admin: 07/13/16 21:40 Dose: 100 mls/hr Metoclopramide HCl (Reglan) 10 mg IVP ACHS [facility] Metoprolol Tartrate (Lopressor) 25 mg PO BID [facility] Last Admin: 07/13/16 09:49 Dose: Not Given Morphine Sulfate (Morphine) 2 mg IVP Q3H PRN PRN Reason: Pain, moderate (4-7) Last Admin: 07/13/16 01:20 Dose: 2 mg Morphine Sulfate (Morphine) 4 mg IVP Q3H PRN PRN Reason: Pain, severe (8-10) Last Admin: 07/14/16 03:47 Dose: 4 mg Ondansetron HCl (Zofran Inj) 4 mg IVP Q8H PRN PRN Reason: Nausea/Vomiting Last Admin: 07/08/16 07:57 Dose: 4 mg Pantoprazole Sodium (Protonix Inj) 40 mg IVP Q12 [facility] Last Admin: 07/13/16 21:38 Dose: 40 mg Petrolatum (Desitin Maximum Strength Topical 40% Oint) 0.1 gm TOP BID [facility] Last Admin: 07/13/16 19:05 Dose: 1 appl - Labs Labs: 07/13/16 06:57 07/13/16 06:57 PT 10.8 Seconds (9.9-11.8) 07/09/16 21:30 INR 1.00 (0.93-1.08) 07/09/16 21:30 APTT 86.4 Seconds (23.7-30.8) H* 07/13/16 18:15 - Constitutional Appears: Non-toxic, No Acute Distress - Head Exam Head Exam: ATRAUMATIC, NORMOCEPHALIC - Eye Exam Eye Exam: EOMI, PERRL Pupil Exam: PERRL. absent: Miosis, Mydriatic - ENT Exam ENT Exam: Mucous Membranes Moist, Normal Oropharynx Additional comments: NG in place draining lott, yellow fluid - Neck Exam Neck Exam: Full ROM, Normal Inspection - Respiratory Exam Respiratory Exam: Clear to Ausculation Bilateral. absent: Rales, Rhonchi, Wheezes - Cardiovascular Exam Cardiovascular Exam: RRR, +S1, +S2. absent: Gallop, Rubs - GI/Abdominal Exam GI & Abdominal Exam: Distended, Soft, Hypoactive Bowel Sounds, Normal Bowel Sounds. absent: Rigid, Tenderness, Organomegaly, Rebound Additional comments: high-pitched bowel sounds with tinkles - Extremities Exam Extremities Exam: Normal Inspection. absent: Pedal Edema - Neurological Exam Neurological Exam: Alert, Awake, Motor Sensory Deficit Additional comments: B/L LE motor deficit, sensation of light touch below bilateral knees and right foot, no sensation to left foot, intact sensation from abdominal cavity to above B/L knees - Psychiatric Exam Psychiatric exam: Normal Affect, Normal Mood - Skin Skin Exam: Dry, Intact, Normal Color, Warm Assessment and Plan - Assessment and Plan (Free Text) Assessment: 51 year old male with history of polysubstance abuse presenting with chest and back pain. Developed bilateral lower extremities motor/sensory deficit complicated by urinary incontinence. POD7 (07/07) emergent decompressive laminectomy T2-4 after MRI showing concern for ventral epidural mass, abscess collection from T1-4 extending to L4 to L5 with dorsal spinal cord compression leading to paraplegic state with urinary incontinence and fecal retention. Repeat CT A/P (07/10) showing marked improvement in paralytic ileus. 07/09 cardiopulmonary arrest during jose manuel-procedural intubation for endoscopy. No prior EGD or colonoscopy. Plan: >paralytic ileus >no bowel movement >increased Reglan to 10 IV ACHS >ordered abdominal xray >decreased NG output in last 24 hours- 650cc (previous 1010cc) >on ceftriaxone >on heparin drip for RLE DVT >PPI BID >would benefit from elective endoscopic evaluation in future once medically optimized <Ld Moses - Last Filed: 07/14/16 11:50> Objective - Vital Signs/Intake and Output Vital Signs (last 24 hours): Temp Pulse Resp BP Pulse Ox 98 F 97 H 20 141/73 93 L 07/14/16 00:01 07/14/16 06:00 07/14/16 00:01 07/14/16 00:01 07/14/16 00:01 Intake and Output: 07/14/16 07/14/16 06:59 18:59 Intake Total 1882 Output Total 650 Balance 1232 - Medications Medications: Current Medications Albuterol/Ipratropium (Duoneb 3 Mg/0.5 Mg (3 Ml) Ud) 3 ml IH [id number] [facility] Last Admin: 07/14/16 07:38 Dose: 3 ml Bacitracin (Bacitracin) 1 ea TOP DAILY [facility] Last Admin: 07/13/16 09:48 Dose: 1 ea Guaifenesin (Mucinex La) 600 mg PO BID [facility] Last Admin: 07/14/16 10:34 Dose: Not Given Hydralazine HCl (Apresoline) 10 mg IVP Q6 PRN PRN Reason: FOR SBP>170 & Diastolic>100 Heparin Sodium/Sodium Chloride (Heparin 27567 Units/250ml 1/2 Normal Saline) 250 mls @ 19.006 mls/hr IV .[id number] PRN; Protocol; 14.35 UNITS/KG/HR PRN Reason: ADJUST RATE PER PROTOCOL Last Admin: 07/14/16 06:16 Dose: 29.536 mls/hr Dextrose/Sodium Chloride (Dextrose 5%/0.9% Ns 1000 Ml) 1,000 mls @ 50 mls/hr IV .Q20H [facility] Last Admin: 07/14/16 10:41 Dose: 50 mls/hr Ceftriaxone Sodium (Rocephin 2 Gm Ivpb) 100 mls @ 100 mls/hr IVPB Q12 [facility] PRN Reason: Protocol Stop: 08/08/16 10:01 Last Admin: 07/14/16 10:34 Dose: 100 mls/hr Metoclopramide HCl (Reglan) 10 mg IVP ACHS [facility] Last Admin: 07/14/16 10:33 Dose: 10 mg Metoprolol Tartrate (Lopressor) 25 mg PO BID [facility] Last Admin: 07/13/16 09:49 Dose: Not Given Morphine Sulfate (Morphine) 2 mg IVP Q3H PRN PRN Reason: Pain, moderate (4-7) Last Admin: 07/13/16 01:20 Dose: 2 mg Morphine Sulfate (Morphine) 4 mg IVP Q3H PRN PRN Reason: Pain, severe (8-10) Last Admin: 07/14/16 08:44 Dose: 4 mg Ondansetron HCl (Zofran Inj) 4 mg IVP Q8H PRN PRN Reason: Nausea/Vomiting Last Admin: 07/08/16 07:57 Dose: 4 mg Pantoprazole Sodium (Protonix Inj) 40 mg IVP Q12 [facility] Last Admin: 07/14/16 10:33 Dose: 40 mg Petrolatum (Desitin Maximum Strength Topical 40% Oint) 0.1 gm TOP BID [facility] Last Admin: 07/13/16 19:05 Dose: 1 appl - Labs Labs: 07/14/16 06:30 07/14/16 06:30 PT 10.8 Seconds (9.9-11.8) 07/09/16 21:30 INR 1.00 (0.93-1.08) 07/09/16 21:30 APTT 98.2 Seconds (23.7-30.8) H* 07/14/16 07:30 Attending/Attestation - Attestation I have personally seen and examined this patient.: Yes I have fully participated in the care of the patient.: Yes I have reviewed all pertinent clinical information, including history, physical exam and plan: Yes Notes (Text): 07/14/16 11:50 51 year old male with h/o Obesity, Polysubstance abuse, Epidural abscess, cord compression, osteomyelitis, and pneumonia, also with paralytic ileus. 1. Paralytic ileus Plan: - Increase reglan to 10 mg QID - repeat abdominal x ray - clamping NG tube and trial of liquids - Continue with antibiotics - Continue with PPI therapy - Conidering cardiac arrest during attempted anasthesia for endoscopy, would defer endoscopy at this time
[2016-07-14 07:13] LABS: BASO # 0.02 K/mm3 (0.0-2.0); BASO % 0.2 % (0.0-3.0); EOS # 0.1 (0.0-0.7); EOS % 1.1 % (1.5-5.0); GRAN % 79.1 % (50.0-68.0); HEMOGLOBIN 11.2 gm/dL (14.0-18.0); LYMPH # 1.2 (1.2-3.4); LYMPH % 11.1 % (22.0-35.0); MEAN CELL VOLUME 91.3 fL (80.0-105.0); MEAN CORPUSCULAR HEMOGLOBIN 30.5 pg (25.0-35.0); MEAN CORPUSCULAR HGB CONC 33.4 g/dl (31.0-37.0); MEAN PLATELET VOLUME 12.2 fl (7.0-11.0); MONO # 0.9 (0.1-0.6); MONO % 8.5 % (1.0-6.0); PLATELET COUNT 246 10^3/uL (120.0-450.0); RBC 3.67 10^6/uL (3.5-6.1); RED CELL DISTRIBUTION WIDTH 13.4 % (11.5-14.5); WHITE BLOOD COUNT 10.6 10^3/ul (4.5-11.0)
[2016-07-14 07:24] LABS: ALB/GLOB RATIO 0.9 (1.1-1.8); ALBUMIN 3.4 g/dL (3.0-4.8); ALT/SGPT 58 U/L (7-56); AST/SGOT 40 U/L (15-59); BLOOD UREA NITROGEN 20 mg/dL (7-21); CALCIUM 8.9 mg/dL (8.4-10.5); GFR AFRICAN-AMERICAN > 60; GFR NON-AFRICAN AMERICAN > 60
--- NOTE | 2016-07-14 08:28 | PN ---
DATE: 07/13/2016 SUBJECTIVE: The patient is in bed in no acute distress, nontoxic. The patient was seen earlier this morning in room 264, bed 2. PHYSICAL EXAMINATION: VITAL SIGNS: Temperature is 98, blood pressure is 140/80, respiratory rate of 20. HEENT: Unremarkable. NECK: Supple. LUNGS: Have decreased breath sounds. HEART: Normal S1, S2. ABDOMEN: Soft, nontender. LABORATORY EXAMINATION: Reveals a white count of 8.6, hemoglobin 11, platelets of 244. Chemistries reveal the BUN of 21, creatinine of 0.7. Urinalysis is noted. HIV is negative. Microbiology reveal s Strep pneumoniae. The patient had a chest x-ray today, which is reviewed. ASSESSMENT AND PLAN: This is a 51-year-old male admitted with a long history of smoking and alcohol abuse and tobacco use and admitted with a cord compression and lower extremity paralysis who was take n to the operating room and had a laminectomy, was found to have an epidural abscess, which grew Stre ptococcus pneumoniae with osteomyelitis. The patient also was found to have a deep venous thrombosis , had an inferior vena cava placement, and the patient is currently on ceftriaxone. He developed an ileus and will need prolonged antibiotic therapy, 10-12 weeks, perhaps longer, with a CBC, SMA-18, SE D rate, C-reactive protein. Streptococcus pneumoniae, epidural abscess. Pathology from the laminect inder is still pending. Multiple myeloma workup pending and will continue with ceftriaxone. Of note, is all the blood cultures have been negative. Blood cultures from the operating room grew Streptococ cus pneumoniae. Sensitivity is reviewed. Colt Coronel MD cc: [id number] TT: 07/13/2016 16:21:42 Confirmation # [id number] Dictation # [id number] dn
[2016-07-14] MEDS: Zinc Oxide Topical 40% Oint (Desitin) TOP SCH ×2 (10:00→17:48)
[2016-07-14] MEDS: guaiFENesin 600 mg ER Tab PO SCH ×2 (10:34→17:48)
[2016-07-14] MEDS: Dextrose 5%/0.9% NS 1,000 ML IV SCH (10:41)
--- NOTE | 2016-07-14 12:03 | CP.PCM.PCO ---
Addendum Addendum: 07/14/16 12:00 I met with patient at bedside accompanied with medical student. Patient is coherent, alert and well-oriented to date, year, location and circumstances. He is hopeful about his medical issues improving and denies SI or HI. Patient is coherent with goal-directed responses. At this time patient defers on any psychiatric management, preferring to focus on his medical recovery. Patient is aware that he can change his mind at any time and psychiatry can and will reconsult with him. As there is no indication of dangerousness, psychiatry will sign off at this time.
[2016-07-14] MEDS: Bacitracin 500 Units/gm Oint Foilpak UD TOP SCH (12:30)
--- NOTE | 2016-07-14 13:41 | CP.PCM.PN ---
<Amelia Malone - Last Filed: 07/14/16 13:43> Subjective - Date & Time of Evaluation Date of Evaluation: 07/14/16 Time of Evaluation: 13:38 - Subjective Subjective: Hospitalist note. Pt s&e. MASSIMO. Has NGT and Avril. Denies F/C/N/V/D. No BM. Working w PT. B/L legs sensation improved. Pain controlled. Objective - Vital Signs/Intake and Output Vital Signs (last 24 hours): Temp Pulse Resp BP Pulse Ox 98.8 F 81 20 143/83 93 L 07/14/16 12:00 07/14/16 12:00 07/14/16 12:00 07/14/16 12:00 07/14/16 00:01 Intake and Output: 07/14/16 07/14/16 06:59 18:59 Intake Total 1882 Output Total 650 Balance 1232 - Medications Medications: Current Medications Albuterol/Ipratropium (Duoneb 3 Mg/0.5 Mg (3 Ml) Ud) 3 ml IH [id number] [facility] Last Admin: 07/14/16 07:38 Dose: 3 ml Bacitracin (Bacitracin) 1 ea TOP DAILY [facility] Last Admin: 07/14/16 12:30 Dose: 1 ea Guaifenesin (Mucinex La) 600 mg PO BID [facility] Last Admin: 07/14/16 10:34 Dose: Not Given Hydralazine HCl (Apresoline) 10 mg IVP Q6 PRN PRN Reason: FOR SBP>170 & Diastolic>100 Heparin Sodium/Sodium Chloride (Heparin 35845 Units/250ml 1/2 Normal Saline) 250 mls @ 19.006 mls/hr IV .[id number] PRN; Protocol; 14.35 UNITS/KG/HR PRN Reason: ADJUST RATE PER PROTOCOL Last Admin: 07/14/16 06:16 Dose: 29.536 mls/hr Dextrose/Sodium Chloride (Dextrose 5%/0.9% Ns 1000 Ml) 1,000 mls @ 50 mls/hr IV .Q20H [facility] Last Admin: 07/14/16 10:41 Dose: 50 mls/hr Ceftriaxone Sodium (Rocephin 2 Gm Ivpb) 100 mls @ 100 mls/hr IVPB Q12 [facility] PRN Reason: Protocol Stop: 08/08/16 10:01 Last Admin: 07/14/16 10:34 Dose: 100 mls/hr Metoclopramide HCl (Reglan) 10 mg IVP ACHS [facility] Last Admin: 07/14/16 13:01 Dose: 10 mg Metoprolol Tartrate (Lopressor) 25 mg PO BID [facility] Last Admin: 07/13/16 09:49 Dose: Not Given Morphine Sulfate (Morphine) 2 mg IVP Q3H PRN PRN Reason: Pain, moderate (4-7) Last Admin: 07/13/16 01:20 Dose: 2 mg Morphine Sulfate (Morphine) 4 mg IVP Q3H PRN PRN Reason: Pain, severe (8-10) Last Admin: 07/14/16 13:01 Dose: 4 mg Ondansetron HCl (Zofran Inj) 4 mg IVP Q8H PRN PRN Reason: Nausea/Vomiting Last Admin: 07/08/16 07:57 Dose: 4 mg Pantoprazole Sodium (Protonix Inj) 40 mg IVP Q12 [facility] Last Admin: 07/14/16 10:33 Dose: 40 mg Petrolatum (Desitin Maximum Strength Topical 40% Oint) 0.1 gm TOP BID [facility] Last Admin: 07/14/16 10:00 Dose: 1 appl - Labs Labs: 07/14/16 06:30 07/14/16 06:30 PT 10.8 Seconds (9.9-11.8) 07/09/16 21:30 INR 1.00 (0.93-1.08) 07/09/16 21:30 APTT 66.7 Seconds (23.7-30.8) H 07/14/16 12:30 - Constitutional Appears: No Acute Distress - Head Exam Head Exam: ATRAUMATIC, NORMAL INSPECTION, NORMOCEPHALIC - Eye Exam Eye Exam: EOMI, Normal appearance, PERRL Pupil Exam: NORMAL ACCOMODATION, PERRL - ENT Exam ENT Exam: Mucous Membranes Moist, Normal Exam Additional comments: NGT in place - Neck Exam Neck Exam: Full ROM, Normal Inspection. absent: Lymphadenopathy - Respiratory Exam Respiratory Exam: Clear to Ausculation Bilateral, NORMAL BREATHING PATTERN - Cardiovascular Exam Cardiovascular Exam: REGULAR RHYTHM, +S1, +S2. absent: Murmur - GI/Abdominal Exam GI & Abdominal Exam: Distended, Soft, Normal Bowel Sounds. absent: Firm, Guarding, Rigid, Tenderness, Hernia, Mass, Rebound - Exam Additional comments: Haque in place - Extremities Exam Extremities Exam: absent: Full ROM, Tenderness Additional comments: b/l LE : Decreased sensation. No motor function - Back Exam Back Exam: absent: Full ROM - Neurological Exam Neurological Exam: Alert, Awake, CN II-XII Intact, Oriented x3. absent: Normal Gait - Skin Skin Exam: Dry, Normal Color, Warm Additional comments: Dressing C/D/I Assessment and Plan - Assessment and Plan (Free Text) Assessment: 51 year old male with no significant past medical history is s/p T2-T4 lamenectomy POD #7 US of LE showed R LE DVT. Hemeoccult positive. Black fluid draining from NG tube Plan: 1. Epidural space abscess s/p lamenectomy T2-T4 POD #7 - Wound cultures grew strep pneumo - Pathology is pending -Rocephine -Morphine - Will continue antibioticsrocephin per ID - CT of chest/abd/pelvis is negative for malignancy -ID is consulted -MRI c/ and w/o contrast on 07/07 prior to procedure showed fluid collection in ventral epidural space from T1-T5 with cord compression and obliteration of subarachinoid space; abnormal signal in T3&T4 which may represent osteomyelitis vs. metastatic dz; no disc herniation, spinal canal stenosis or neuroforaminal narrowing. Lumbar spine MRI was negative for cauda equina. Please see full reports for details. 2. Paralysis in LE - Will continue to monitor. - Aggressive PT/OT - boots are in place and pt is being turned to prevent stress ulcers 3. Neurogenic bowel vs. ileus - GI is consulted. No plan for EGD at this time as he coded during last attempt - Heme occult is positive for blood. Will continue to monitor Hgb. - NG tube in place: Clamp trial. - Started Reglan 5 mg IV ACHS - Will consider feeding trial 5. Neurogenic bladder - Haque in place - Urology is consultedL suprapubic catherization outpatient basis. 6. R LE DVT - IVC filter placed - Pt is on heparin drip and closely monitored for bleeding - Contacted Eliquis: Pt will have to apply for pt assistance program - Heme consult, Dr. Warren requested. - 07/06 US of LE showed thrombus in right common and proximal femoral vein 7. CP R/O ACS - Cardio is consulted - Echo showed EF of 63.5%, normal LV, trace AR, MR and TR - Hgb A1c is 6.3 8. Iron deficiency anemia - Will cont to monitor at this time - Iron 35 (low), TIBC 325 (normal), Ferritin 11 (low), Vit B12 327 (Normal), folate 7.8 (normal) 9. Stage 1 pressure ulcer on Right gluteal region - air mattress - continue to reposition q2 - multivit, zinv, vitamin C - Wound care pending 10. Prophylaxis - Protonix - heparin drip Dispo: Pt uninsured. Not eligible for rehab facility. Not qualify for [facility] bc of income above $[id number] Case discussed with attending, Dr. Tutu Marc <Tutu Marc - Last Filed: 07/14/16 15:56> Objective - Vital Signs/Intake and Output Vital Signs (last 24 hours): Temp Pulse Resp BP Pulse Ox 98.8 F 81 20 143/83 93 L 07/14/16 12:00 07/14/16 12:00 07/14/16 12:00 07/14/16 12:00 07/14/16 00:01 Intake and Output: 07/14/16 07/14/16 06:59 18:59 Intake Total 1882 360 Output Total 650 1600 Balance 1232 -1240 - Medications Medications: Current Medications Albuterol/Ipratropium (Duoneb 3 Mg/0.5 Mg (3 Ml) Ud) 3 ml IH [id number] [facility] Last Admin: 07/14/16 12:00 Dose: 3 ml Bacitracin (Bacitracin) 1 ea TOP DAILY [facility] Last Admin: 07/14/16 12:30 Dose: 1 ea Guaifenesin (Mucinex La) 600 mg PO BID [facility] Last Admin: 07/14/16 10:34 Dose: Not Given Hydralazine HCl (Apresoline) 10 mg IVP Q6 PRN PRN Reason: FOR SBP>170 & Diastolic>100 Heparin Sodium/Sodium Chloride (Heparin 37923 Units/250ml 1/2 Normal Saline) 250 mls @ 19.006 mls/hr IV .[id number] PRN; Protocol; 14.35 UNITS/KG/HR PRN Reason: ADJUST RATE PER PROTOCOL Last Admin: 07/14/16 06:16 Dose: 29.536 mls/hr Dextrose/Sodium Chloride (Dextrose 5%/0.9% Ns 1000 Ml) 1,000 mls @ 50 mls/hr IV .Q20H [facility] Last Admin: 07/14/16 10:41 Dose: 50 mls/hr Ceftriaxone Sodium (Rocephin 2 Gm Ivpb) 100 mls @ 100 mls/hr IVPB Q12 [facility] PRN Reason: Protocol Stop: 08/08/16 10:01 Last Admin: 07/14/16 10:34 Dose: 100 mls/hr Metoclopramide HCl (Reglan) 10 mg IVP ACHS [facility] Last Admin: 07/14/16 13:01 Dose: 10 mg Metoprolol Tartrate (Lopressor) 25 mg PO BID [facility] Last Admin: 07/13/16 09:49 Dose: Not Given Morphine Sulfate (Morphine) 2 mg IVP Q3H PRN PRN Reason: Pain, moderate (4-7) Last Admin: 07/13/16 01:20 Dose: 2 mg Morphine Sulfate (Morphine) 4 mg IVP Q3H PRN PRN Reason: Pain, severe (8-10) Last Admin: 07/14/16 13:01 Dose: 4 mg Ondansetron HCl (Zofran Inj) 4 mg IVP Q8H PRN PRN Reason: Nausea/Vomiting Last Admin: 07/08/16 07:57 Dose: 4 mg Pantoprazole Sodium (Protonix Inj) 40 mg IVP Q12 [facility] Last Admin: 07/14/16 10:33 Dose: 40 mg Petrolatum (Desitin Maximum Strength Topical 40% Oint) 0.1 gm TOP BID [facility] Last Admin: 07/14/16 10:00 Dose: 1 appl - Labs Labs: 07/14/16 06:30 07/14/16 06:30 PT 10.8 Seconds (9.9-11.8) 07/09/16 21:30 INR 1.00 (0.93-1.08) 07/09/16 21:30 APTT 66.7 Seconds (23.7-30.8) H 07/14/16 12:30 Attending/Attestation - Attestation I have personally seen and examined this patient.: Yes I have fully participated in the care of the patient.: Yes I have reviewed all pertinent clinical information, including history, physical exam and plan: Yes Notes (Text): I have seen and examined patient at bedside. This is 51 year old male with history of substance abuse (snorts cocaine), tobacco, alcohol use who got admitted for evaluation of back pain and found to have epidural abscess T1-T5, osteomyelitis, urinary retention, acute RLE DVT. He underwent emergent laminectomy and epidural abscess was drained. Wound culture is growing strep pneumonia. He is on rocephin. Blood cultures are negative. HIV negative. He has no or may be slight improvement in sensory or motor function. As per neurosurgery, prognosis is not good as patient did not regain function yet. Need aggressive PT. During his stay, patient was taken to EGD for evaluation of gastric distention and he coded after anesthesia. He got extubated few days ago. FOBT positive. Patient has paralytic ileus. NGT was clamped and he will be started on clears. Continue PPI. Will increase reglan dose . He has been on heparin drip for acute RLE DVT and is s/p IVC filter. Will try to arrange for eliquis today. Hypercoagulable work up still pending. CT chest, abdomen and pelvis negative. He has haque catheter for neurogenic bladder. Urology consult appreciated. No plan as of yet for suprapubic catheterization. Echo revealed Normal LVEF. Psych consult appreciated. CM are working on POA. He was also found to have stage 1 pressure ulcer on right gluteal area. Will continue air mattress, mvi, zinc, vitamin c, zinc and continue to reposition q2 hours. Wound care consult pending. Dr Tutu Marc
--- NOTE | 2016-07-14 13:53 | RAD ---
HISTORY: re evaluate ileus COMPARISON: No prior. FINDINGS: BOWEL: Re- demonstrated are multiple mildly distended air-filled loops of small bowel. There appears be contrast material within the right colon and air in the left colon. Findings consistent with this patient's history of an ileus. BONES: Normal. OTHER FINDINGS: In situ IVC filter again noted. IMPRESSION: Findings consistent with this patient's history of ileus.
--- NOTE | 2016-07-14 14:45 | PN ---
DATE: 07/14/2016 LOCATION: Room 270, bed 1. REASON FOR CONSULTATION AND FOLLOWUP: Status post spinal abscess, DVT, status post CPR, status post intubation. HISTORY OF PRESENT ILLNESS: A 51-year-old male with 1-week history of pain radiating from the back t o the chest which was related to spinal abscess which was causing pain from back of the spine to radi ating in the front. Since the patient's abscess was drained, pain was relieved. During the course o f hospitalization, the patient was found to have right lower extremity deep venous thrombosis and was started on heparin after clearance from spinal surgeon. While he was getting heparin, the patient d eveloped coffee ground vomiting, so NG tube was placed. The patient went for an endoscopy, but it wa s difficult intubation, so patient developed respiratory distress and short CPR had to be done. The patient is now awake, alert, denies chest pain, shortness of breath, or palpitations. The patient st ill has NG tube. He is lying flat in the bed. PHYSICAL EXAMINATION: VITAL SIGNS: Blood pressure 142/83, respirations 20, pulse 81, temperature 98.8. HEAD: Normocephalic. EYES: Pupils normal. Conjunctivae slightly pale. NECK: JVP low. Carotids equal. THORAX: AP diameter normal. LUNGS: No rales. CARDIOVASCULAR: S1, S2. ABDOMEN: Protuberant, no organomegaly. EXTREMITIES: No clubbing, no cyanosis. LABORATORY DATA: WBC 10.6, hemoglobin 11.2, hematocrit 33.5 and platelets 246. Sodium 133, potassiu m 4.3, BUN 20, creatinine 0.8. AST 40, ALT 58, total protein 7.3, albumin 3.4. DIAGNOSES: Status post cardiopulmonary resuscitation, status post intubation, now successfully extub ated, gastrointestinal bleeding, status post spinal abscess drainage, status post deep venous thrombo sis of the right lower extremity, right common femoral vein, obesity, chest pain related to spinal ab scess radiating from back to front. Echo showed left ventricular ejection fraction 55% to 60%. Righ t ventricular systolic pressure 22 mmHg, essentially normal echo, trace tricuspid, mitral and aortic regurgitation, all 3 trace. PLAN: The patient is on IV fluids, DuoNeb hand nebulizer therapy, heparin drip, metoprolol 25 b.i.d. , Protonix 40 mg IV q. 12 hours, Reglan 10 mg IV a.c. and at bedtime, Rocephin 2 gram IV q. 12 hours. We will continue present therapy and we will follow with you. Jarrod Sumner MD cc: [phone] TT: 07/14/2016 14:44:45 Confirmation # [id number] Dictation # [id number] dn
--- NOTE | 2016-07-14 15:25 | CP.PCM.PN ---
Subjective - Date & Time of Evaluation Date of Evaluation: 07/14/16 Time of Evaluation: 09:00 - Subjective Subjective: Still with NG tube. No fevers overnight, no nausea currently, no diarrhea, less pain in the back, has more sensation in both feet. Objective - Vital Signs/Intake and Output Vital Signs (last 24 hours): Temp Pulse Resp BP Pulse Ox 98.8 F 81 20 143/83 93 L 07/14/16 12:00 07/14/16 12:00 07/14/16 12:00 07/14/16 12:00 07/14/16 00:01 Intake and Output: 07/14/16 07/14/16 06:59 18:59 Intake Total 1882 Output Total 650 Balance 1232 - Medications Medications: Current Medications Albuterol/Ipratropium (Duoneb 3 Mg/0.5 Mg (3 Ml) Ud) 3 ml IH [id number] [facility] Last Admin: 07/14/16 12:00 Dose: 3 ml Bacitracin (Bacitracin) 1 ea TOP DAILY [facility] Last Admin: 07/14/16 12:30 Dose: 1 ea Guaifenesin (Mucinex La) 600 mg PO BID [facility] Last Admin: 07/14/16 10:34 Dose: Not Given Hydralazine HCl (Apresoline) 10 mg IVP Q6 PRN PRN Reason: FOR SBP>170 & Diastolic>100 Heparin Sodium/Sodium Chloride (Heparin 64903 Units/250ml 1/2 Normal Saline) 250 mls @ 19.006 mls/hr IV .[id number] PRN; Protocol; 14.35 UNITS/KG/HR PRN Reason: ADJUST RATE PER PROTOCOL Last Admin: 07/14/16 06:16 Dose: 29.536 mls/hr Dextrose/Sodium Chloride (Dextrose 5%/0.9% Ns 1000 Ml) 1,000 mls @ 50 mls/hr IV .Q20H [facility] Last Admin: 07/14/16 10:41 Dose: 50 mls/hr Ceftriaxone Sodium (Rocephin 2 Gm Ivpb) 100 mls @ 100 mls/hr IVPB Q12 [facility] PRN Reason: Protocol Stop: 08/08/16 10:01 Last Admin: 07/14/16 10:34 Dose: 100 mls/hr Metoclopramide HCl (Reglan) 10 mg IVP ACHS [facility] Last Admin: 07/14/16 13:01 Dose: 10 mg Metoprolol Tartrate (Lopressor) 25 mg PO BID [facility] Last Admin: 07/13/16 09:49 Dose: Not Given Morphine Sulfate (Morphine) 2 mg IVP Q3H PRN PRN Reason: Pain, moderate (4-7) Last Admin: 07/13/16 01:20 Dose: 2 mg Morphine Sulfate (Morphine) 4 mg IVP Q3H PRN PRN Reason: Pain, severe (8-10) Last Admin: 07/14/16 13:01 Dose: 4 mg Ondansetron HCl (Zofran Inj) 4 mg IVP Q8H PRN PRN Reason: Nausea/Vomiting Last Admin: 07/08/16 07:57 Dose: 4 mg Pantoprazole Sodium (Protonix Inj) 40 mg IVP Q12 [facility] Last Admin: 07/14/16 10:33 Dose: 40 mg Petrolatum (Desitin Maximum Strength Topical 40% Oint) 0.1 gm TOP BID [facility] Last Admin: 07/14/16 10:00 Dose: 1 appl - Labs Labs: 07/14/16 06:30 07/14/16 06:30 PT 10.8 Seconds (9.9-11.8) 07/09/16 21:30 INR 1.00 (0.93-1.08) 07/09/16 21:30 APTT 66.7 Seconds (23.7-30.8) H 07/14/16 12:30 - Constitutional Appears: Non-toxic, No Acute Distress - Head Exam Head Exam: NORMAL INSPECTION - ENT Exam Additional comments: NG tube in place - Neck Exam Neck Exam: absent: Lymphadenopathy, Meningismus - Respiratory Exam Respiratory Exam: Decreased Breath Sounds - Cardiovascular Exam Cardiovascular Exam: +S1, +S2 - GI/Abdominal Exam GI & Abdominal Exam: Soft. 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 with associated cord compression and lower extremity paralysis S/P neurosurgery for abscess drainage and laminectomy POD #7 significant smoking history alcohol abuse obesity with BMI 40 Plan Continue Rocephin for at least 4-6 weeks with weekly ESR, CRP, CBC, CMP Will continue to monitor clinically
--- NOTE | 2016-07-14 17:06 | PCM.URO ---
Urology Progress Note - Objective Lab Results Last 24 Hours: Laboratory Results - last 24 hr 07/13/16 07/13/16 07/14/16 18:15 21:51 06:30 WBC 10.6 D RBC 3.67 Hgb 11.2 L Hct 33.5 L MCV 91.3 MCH 30.5 MCHC 33.4 RDW 13.4 Plt Count 246 MPV 12.2 H Gran % 79.1 H Lymph % (Auto) 11.1 L [place] % (Auto) 8.5 H Eos % (Auto) 1.1 L Baso % (Auto) 0.2 Gran # 8.40 H Lymph # 1.2 [place] # 0.9 H Eos # 0.1 Baso # 0.02 APTT 86.4 H* Sodium 133 Potassium 4.3 Chloride 97 L Carbon Dioxide 28 Anion Gap 12 BUN 20 Creatinine 0.8 Est GFR ( Amer) > 60 Est GFR (Non-Af Amer) > 60 POC Glucose (mg/dL) 100 Random Glucose 103 Calcium 8.9 Total Bilirubin 0.7 AST 40 ALT 58 H Alkaline Phosphatase 67 Total Protein 7.3 Albumin 3.4 Globulin 3.9 Albumin/Globulin Ratio 0.9 L 07/14/16 07/14/16 07:30 12:30 WBC RBC Hgb Hct MCV MCH MCHC RDW Plt Count MPV Gran % Lymph % (Auto) [place] % (Auto) Eos % (Auto) Baso % (Auto) Gran # Lymph # [place] # Eos # Baso # APTT 98.2 H* 66.7 H Sodium Potassium Chloride Carbon Dioxide Anion Gap BUN Creatinine Est GFR ( Amer) Est GFR (Non-Af Amer) POC Glucose (mg/dL) Random Glucose Calcium Total Bilirubin AST ALT Alkaline Phosphatase Total Protein Albumin Globulin Albumin/Globulin Ratio Intake & Output: Intake & Output 07/13/16 07/14/16 07/14/16 18:59 06:59 18:59 Intake Total 0 1882 360 Output Total 663 836 4802 Balance -800 1232 -1240 Weight 318 lb 8 oz Intake: IV 1882 Right Hand 1882 Oral 0 360 Output: Gastric Amount 650 Nares 650 Urine 800 1600 Urethral ([place]ackenzie) 800 1600 Other: Voiding Method Indwelling Catheter # Bowel Movements 1 Vital Signs: Vital Signs - 24 hr 07/13/16 07/13/16 07/14/16 18:00 22:00 00:01 Temperature 98 F Pulse Rate 72 76 70 Respiratory 20 Rate Blood Pressure 141/73 O2 Sat by Pulse 93 L Oximetry 07/14/16 07/14/16 07/14/16 02:00 06:00 10:00 Temperature Pulse Rate 78 97 H 81 Respiratory Rate Blood Pressure O2 Sat by Pulse Oximetry 07/14/16 07/14/16 12:00 14:00 Temperature 98.8 F Pulse Rate 81 93 H Respiratory 20 Rate Blood Pressure 143/83 O2 Sat by Pulse Oximetry
[2016-07-15] MEDS: Morphine 4 mg/ml ISec IVP PRN ×6 (00:49→22:24)
[2016-07-15] MEDS: Albuterol-Ipratrop 3 mg / 0.5 (3 ml) UD IH SCH ×4 (02:21→19:24)
[2016-07-15] MEDS: Heparin25000 units/250ml 1/2NS 250 ML IV PRN ×2 (05:26→11:52)
--- NOTE | 2016-07-15 06:46 | CP.PCM.PN ---
<Norberto[place]annah - Last Filed: 07/15/16 08:39> Subjective - Date & Time of Evaluation Date of Evaluation: 07/15/16 Time of Evaluation: 06:43 - Subjective Subjective: Gastroenterology Fellow/PGY4 Progress Note Patient notes unchanged sensation to lower extremities compared to yesterday. Two loose bowel movements overnight. NGT removed. Tolerating clear liquids without vomiting. 12-point review of systems negative except for as above. Objective - Vital Signs/Intake and Output Vital Signs (last 24 hours): Temp Pulse Resp BP Pulse Ox 98.7 F 77 18 154/77 H 94 L 07/15/16 06:00 07/15/16 06:00 07/15/16 06:00 07/15/16 06:00 07/15/16 06:00 Intake and Output: 07/14/16 07/15/16 18:59 06:59 Intake Total 360 1484 Output Total 1600 500 Balance -1240 984 - Medications Medications: Current Medications Albuterol/Ipratropium (Duoneb 3 Mg/0.5 Mg (3 Ml) Ud) 3 ml IH [id number] [facility] Last Admin: 07/15/16 02:21 Dose: 3 ml Bacitracin (Bacitracin) 1 ea TOP DAILY [facility] Last Admin: 07/14/16 12:30 Dose: 1 ea Guaifenesin (Mucinex La) 600 mg PO BID [facility] Last Admin: 07/14/16 17:48 Dose: 600 mg Hydralazine HCl (Apresoline) 10 mg IVP Q6 PRN PRN Reason: FOR SBP>170 & Diastolic>100 Heparin Sodium/Sodium Chloride (Heparin 80057 Units/250ml 1/2 Normal Saline) 250 mls @ 19.006 mls/hr IV .[id number] PRN; Protocol; 14.35 UNITS/KG/HR PRN Reason: ADJUST RATE PER PROTOCOL Last Admin: 07/15/16 05:26 Dose: 29.536 mls/hr Dextrose/Sodium Chloride (Dextrose 5%/0.9% Ns 1000 Ml) 1,000 mls @ 50 mls/hr IV .Q20H [facility] Last Admin: 07/14/16 10:41 Dose: 50 mls/hr Ceftriaxone Sodium (Rocephin 2 Gm Ivpb) 100 mls @ 100 mls/hr IVPB Q12 [facility] PRN Reason: Protocol Stop: 08/08/16 10:01 Last Admin: 07/14/16 21:06 Dose: 100 mls/hr Metoclopramide HCl (Reglan) 10 mg IVP ACHS [facility] Last Admin: 07/14/16 21:06 Dose: 10 mg Metoprolol Tartrate (Lopressor) 25 mg PO BID [facility] Last Admin: 07/13/16 09:49 Dose: Not Given Morphine Sulfate (Morphine) 2 mg IVP Q3H PRN PRN Reason: Pain, moderate (4-7) Last Admin: 07/13/16 01:20 Dose: 2 mg Morphine Sulfate (Morphine) 4 mg IVP Q3H PRN PRN Reason: Pain, severe (8-10) Last Admin: 07/15/16 05:25 Dose: 4 mg Ondansetron HCl (Zofran Inj) 4 mg IVP Q8H PRN PRN Reason: Nausea/Vomiting Last Admin: 07/08/16 07:57 Dose: 4 mg Pantoprazole Sodium (Protonix Inj) 40 mg IVP Q12 [facility] Last Admin: 07/14/16 21:07 Dose: 40 mg Petrolatum (Desitin Maximum Strength Topical 40% Oint) 0.1 gm TOP BID [facility] Last Admin: 07/14/16 17:48 Dose: 1 appl - Labs Labs: 07/14/16 06:30 07/14/16 06:30 PT 10.8 Seconds (9.9-11.8) 07/09/16 21:30 INR 1.00 (0.93-1.08) 07/09/16 21:30 APTT 63.9 Seconds (23.7-30.8) H 07/14/16 20:00 - Constitutional Appears: Non-toxic, No Acute Distress - Head Exam Head Exam: ATRAUMATIC, NORMOCEPHALIC - Eye Exam Eye Exam: EOMI, PERRL Pupil Exam: PERRL. absent: Miosis, Mydriatic - ENT Exam ENT Exam: Mucous Membranes Moist, Normal Oropharynx - Neck Exam Neck Exam: Full ROM, Normal Inspection - Respiratory Exam Respiratory Exam: Clear to Ausculation Bilateral. absent: Rales, Rhonchi, Wheezes - Cardiovascular Exam Cardiovascular Exam: RRR, +S1, +S2. absent: Gallop, Rubs - GI/Abdominal Exam GI & Abdominal Exam: Soft, Normal Bowel Sounds. absent: Distended, Firm, Guarding, Rigid, Tenderness, Organomegaly, Rebound - Extremities Exam Extremities Exam: Normal Inspection. absent: Pedal Edema - Neurological Exam Neurological Exam: Alert, Awake, Motor Sensory Deficit - Psychiatric Exam Psychiatric exam: Normal Affect, Normal Mood - Skin Skin Exam: Dry, Intact, Normal Color, Warm Assessment and Plan - Assessment and Plan (Free Text) Assessment: 51 year old male with history of polysubstance abuse presenting with chest and back pain. Developed bilateral lower extremities motor/sensory deficit complicated by urinary incontinence. POD8 (07/07) emergent decompressive laminectomy T2-4 after MRI showing concern for ventral epidural mass, abscess collection from T1-4 extending to L4 to L5 with dorsal spinal cord compression leading to paraplegic state with urinary incontinence and fecal retention. Repeat CT A/P (07/10) showing marked improvement in paralytic ileus. 07/09 cardiopulmonary arrest during jose manuel-procedural intubation for endoscopy. No prior EGD or colonoscopy. Plan: >persistent dilated loops on abdominal xray >tolerating clear liquids, advance full liquids, close monitoring >2 bowel movements overnight >watery stools- ordered Cdiff, stool culture >monitor H/H >on Heparin drip >continue Reglan to 10 IV ACHS >PPI BID >further recommendations based on clinical course <Ld Moses - Last Filed: 07/15/16 12:57> Objective - Vital Signs/Intake and Output Vital Signs (last 24 hours): Temp Pulse Resp BP Pulse Ox 98.5 F 79 20 146/76 94 L 07/15/16 12:00 07/15/16 12:00 07/15/16 12:00 07/15/16 12:00 07/15/16 06:00 Intake and Output: 07/15/16 07/15/16 06:59 18:59 Intake Total 1484 Output Total 500 Balance 984 - Medications Medications: Current Medications Albuterol/Ipratropium (Duoneb 3 Mg/0.5 Mg (3 Ml) Ud) 3 ml IH [id number] [facility] Last Admin: 07/15/16 08:12 Dose: 3 ml Ascorbic Acid (Vitamin C 500 Mg Tab) 500 mg PO DAILY [facility] Last Admin: 07/15/16 11:33 Dose: 500 mg Bacitracin (Bacitracin) 1 ea TOP DAILY [facility] Last Admin: 07/15/16 11:09 Dose: 1 ea Guaifenesin (Mucinex La) 600 mg PO BID [facility] Last Admin: 07/15/16 09:35 Dose: 600 mg Hydralazine HCl (Apresoline) 10 mg IVP Q6 PRN PRN Reason: FOR SBP>170 & Diastolic>100 Heparin Sodium/Sodium Chloride (Heparin 64718 Units/250ml 1/2 Normal Saline) 250 mls @ 19.006 mls/hr IV .[id number] PRN; Protocol; 14.35 UNITS/KG/HR PRN Reason: ADJUST RATE PER PROTOCOL Last Admin: 07/15/16 11:52 Dose: 29.536 mls/hr Dextrose/Sodium Chloride (Dextrose 5%/0.9% Ns 1000 Ml) 1,000 mls @ 50 mls/hr IV .Q20H [facility] Last Admin: 07/14/16 10:41 Dose: 50 mls/hr Ceftriaxone Sodium (Rocephin 2 Gm Ivpb) 100 mls @ 100 mls/hr IVPB Q12 [facility] PRN Reason: Protocol Stop: 08/08/16 10:01 Last Admin: 07/15/16 09:34 Dose: 100 mls/hr Lisinopril (Zestril) 20 mg PO DAILY [facility] Last Admin: 07/15/16 10:34 Dose: 20 mg Metoclopramide HCl (Reglan) 10 mg IVP ACHS [facility] Last Admin: 07/15/16 11:33 Dose: 10 mg Metoprolol Tartrate (Lopressor) 25 mg PO BID [facility] Last Admin: 07/15/16 10:34 Dose: 25 mg Morphine Sulfate (Morphine) 2 mg IVP Q3H PRN PRN Reason: Pain, moderate (4-7) Last Admin: 07/13/16 01:20 Dose: 2 mg Morphine Sulfate (Morphine) 4 mg IVP Q3H PRN PRN Reason: Pain, severe (8-10) Last Admin: 07/15/16 10:50 Dose: 4 mg Multivitamins/Minerals (Therapeutic-M Tab) 1 tab PO DAILY [facility] Last Admin: 07/15/16 11:33 Dose: 1 tab Ondansetron HCl (Zofran Inj) 4 mg IVP Q8H PRN PRN Reason: Nausea/Vomiting Last Admin: 07/08/16 07:57 Dose: 4 mg Pantoprazole Sodium (Protonix Inj) 40 mg IVP Q12 [facility] Last Admin: 07/15/16 09:34 Dose: 40 mg Petrolatum (Desitin Maximum Strength Topical 40% Oint) 0.1 gm TOP BID [facility] Last Admin: 07/15/16 10:33 Dose: 1 appl Zinc Sulfate (Zinc Sulfate 220 Mg Cap) 220 mg PO DAILY [facility] Last Admin: 07/15/16 11:33 Dose: 220 mg - Labs Labs: 07/15/16 07:10 07/15/16 07:10 PT 10.8 Seconds (9.9-11.8) 07/09/16 21:30 INR 1.00 (0.93-1.08) 07/09/16 21:30 APTT 69.2 Seconds (23.7-30.8) H 07/15/16 06:30 Attending/Attestation - Attestation I have personally seen and examined this patient.: Yes I have fully participated in the care of the patient.: Yes I have reviewed all pertinent clinical information, including history, physical exam and plan: Yes Notes (Text): 07/15/16 12:56 51 year old male with h/o Obesity, Polysubstance abuse, Epidural abscess, cord compression, osteomyelitis, and pneumonia, also with paralytic ileus. 1. Paralytic ileus Plan: - Continue reglan to 10 mg QID - repeat abdominal x ray reviewed - tolerating CLD and had a couple loose bm - send stool studies - advance to full liquids - Continue with antibiotics - Continue with PPI therapy - Conidering cardiac arrest during attempted anasthesia for endoscopy, would defer endoscopy at this time
[2016-07-15 07:30] LABS: BASO # 0.02 K/mm3 (0.0-2.0); BASO % 0.2 % (0.0-3.0); EOS # 0.2 (0.0-0.7); EOS % 1.8 % (1.5-5.0); GRAN # 7.84 (1.4-6.5); GRAN % 78.8 % (50.0-68.0); HEMOGLOBIN 11.5 gm/dL (14.0-18.0); LYMPH % 10.5 % (22.0-35.0); MEAN CELL VOLUME 91.8 fL (80.0-105.0); MEAN CORPUSCULAR HEMOGLOBIN 30.5 pg (25.0-35.0); MEAN CORPUSCULAR HGB CONC 33.2 g/dl (31.0-37.0); MONO # 0.9 (0.1-0.6); MONO % 8.7 % (1.0-6.0); PLATELET COUNT 232 10^3/uL (120.0-450.0); RBC 3.77 10^6/uL (3.5-6.1); RED CELL DISTRIBUTION WIDTH 13.6 % (11.5-14.5)
--- NOTE | 2016-07-15 07:42 | PN ---
DATE: 07/14/2016 See the previously dictated consult notes. The patient is currently resting. He is on 2R [place]. See the previously dictated consult notes and progress notes. The patient was initially seen 07/07 an d subsequent at times when he was in the ICU. See the previously dictated progress notes. He has ur inary retention, voiding dysfunction. He presented with back pain. He had a laminectomy. He had multiple issues in the ICU, including GI workup and repeating intubation. From a urology standpoint, at this point, he is awake. He has an indwelling Mackenzie catheter. See the plan listed below. The patient reports moderate voiding dysfunction, but at this point, does not wa nt any further urology workup or treatment, but does understand that he is going to keep the Mackenzie fo r now and then at some point, we will work him up and treat him. PAST MEDICAL AND SURGICAL HISTORY: All listed on the chart. No interim urology changes. PHYSICAL EXAMINATION: GENERAL: Well-nourished male. He is currently resting comfortably. GENITOURINARY: Mackenzie catheter is in place, draining herb urine. DIAGNOSES: Urinary retention, voiding dysfunction, urinary incontinence, overflow. It is difficult to evaluate the patient at this point. The patient will require outpatient workup, cystoscopy, urodynamics, etc. I discussed all this with the patient. We even may just try a voiding trial depending on how the patient does, but for now, he wants to leave the Mackenzie catheter in. UROLOGY PLAN: Mackenzie to leg bag for daytime use. Mackenzie to overnight bag overnight. And then, we will follow along to make outpatient arrangements, but please do not remove the Mackenzie at this point and then further plans will follow. Willie Iqbal MD cc: [phone] TT: 07/15/2016 07:41:59 Confirmation # [id number] Dictation # [id number] en
[2016-07-15 07:57] LABS: ALB/GLOB RATIO 0.8 (1.1-1.8); ALBUMIN 3.6 g/dL (3.0-4.8); ALT/SGPT 74 U/L (7-56); AST/SGOT 48 U/L (15-59); BLOOD UREA NITROGEN 21 mg/dL (7-21); CALCIUM 9.4 mg/dL (8.4-10.5); GFR AFRICAN-AMERICAN > 60; GFR NON-AFRICAN AMERICAN > 60
[2016-07-15] MEDS: guaiFENesin 600 mg ER Tab PO SCH ×2 (09:35→17:43)
--- NOTE | 2016-07-15 10:30 | PN ---
DATE: 07/15/2016 REASON FOR CONSULTATION AND FOLLOWUP: Status post spinal abscess drained, DVT, status post CPR, stat us post intubated, now successfully extubated, weakness of both lower extremities (paralysis). BRIEF CLINICAL HISTORY: A 51-year-old male admitted with 1-week history of chest pain radiating to t he back which was related to a spinal abscess. Also found to have right DVT of the lower extremity. The patient subsequently underwent spinal abscess drainage and then on IV heparin. Postop course wa s complicated by coffee-ground vomitus in NG tube, underwent endoscopy, but was a difficult intubatio n, developed respiratory distress, CPR was done, now patient successfully extubated, now is in 2R, bu t complained of weakness of the lower extremity, only can wiggle the toes. Denies any chest pain, sh ortness of breath, any palpitation, on heparin and IV fluid. PHYSICAL EXAMINATION: VITAL SIGNS: Temperature afebrile, heart rate 77, blood pressure 154/77. HEENT: PERRLA. Extraocular muscles intact. NECK: Supple. No carotid bruit or thyromegaly. CHEST: Clear to auscultation. HEART: S1, S2 regular. ABDOMEN: Soft. EXTREMITIES: Clubbing and cyanosis negative. Weakness of the lower extremity, cannot move lower lombardi b. LABORATORY DATA: Blood workup as follows: WBC 10, hemoglobin ____, hematocrit 34.6, platelet count 232. Chemistry shows sodium 134, potassium 4.3, chloride 98, carbon dioxide 27, anion gap of 13, BUN 21, creatinine 0.9. IMPRESSION: Spinal abscess, status post drainage, lower extremity weakness, paralysis, DVT of right lower extremity, status post CPR, status post intubated, now successfully extubated, gastrointestinal bleed, status post abscess drained, deep venous thrombosis of the right lower extremity of common fe moral vein, obesity. The most recent echo shows ejection fraction 55%-60%, right ventricular systoli c pressure 22, essentially normal echo, trace tricuspid regurgitation, trace mitral regurgitation, __ __ aortic regurgitation. Gastrointestinal bleed. Hemoccult positive. ____ dilated loop, tolerating clear liquids, watery stool, possible Clostridium difficile, cord compression from T1-T5 and T3-T4, status post inferior vena cava filter. RECOMMENDATION: Continue heparin. ____ anticoagulation versus Coumadin, neuro evaluation, p.r.n. hy dralazine. Since the patient started, we will start DELMIS inhibitors to control better blood pressure. Continue p.r.n. hydralazine. Continue beta johann, metoprolol 25 mg twice a day. We will follow with you. Thank you, Dr. Tutu Marc, for providing the opportunity in taking care of the patient. Will repeat the lab in the morning. Jarrod Barbour MD cc: [id number] TT: 07/15/2016 10:29:54 Confirmation # [id number] Dictation # [id number] rn
[2016-07-15] MEDS: Zinc Oxide Topical 40% Oint (Desitin) TOP SCH ×2 (10:33→17:43)
[2016-07-15] MEDS: Bacitracin 500 Units/gm Oint Foilpak UD TOP SCH (11:09)
--- NOTE | 2016-07-15 11:15 | CP.PCM.PN ---
<Keri Guzman - Last Filed: 07/15/16 11:12> Subjective - Date & Time of Evaluation Date of Evaluation: 07/15/16 Time of Evaluation: 11:12 - Subjective Subjective: HOSPITALIST PROGRESS NOTE Pt is seen and examined at bedside. Pt states that he had 2 BM yesterday. Pt was started on CLD which he tolerated. Denies having N/V after eating. Pt denies having any CP, SOB at this time. He is still unable to move his LE B/L. Objective - Vital Signs/Intake and Output Vital Signs (last 24 hours): Temp Pulse Resp BP Pulse Ox 98.7 F 75 18 123/73 94 L 07/15/16 06:00 07/15/16 10:34 07/15/16 06:00 07/15/16 10:34 07/15/16 06:00 Intake and Output: 07/15/16 07/15/16 06:59 18:59 Intake Total 1484 Output Total 500 Balance 984 - Medications Medications: Current Medications Albuterol/Ipratropium (Duoneb 3 Mg/0.5 Mg (3 Ml) Ud) 3 ml IH [id number] [facility] Last Admin: 07/15/16 08:12 Dose: 3 ml Bacitracin (Bacitracin) 1 ea TOP DAILY [facility] Last Admin: 07/14/16 12:30 Dose: 1 ea Guaifenesin (Mucinex La) 600 mg PO BID [facility] [place] Last Admin: 07/15/16 09:35 Dose: 600 mg Hydralazine HCl (Apresoline) 10 mg IVP Q6 PRN PRN Reason: FOR SBP>170 & Diastolic>100 Heparin Sodium/Sodium Chloride (Heparin 49870 Units/250ml 1/2 Normal Saline) 250 mls @ 19.006 mls/hr IV .[id number] PRN; Protocol; 14.35 UNITS/KG/HR PRN Reason: ADJUST RATE PER PROTOCOL Last Admin: 07/15/16 05:26 Dose: 29.536 mls/hr Dextrose/Sodium Chloride (Dextrose 5%/0.9% Ns 1000 Ml) 1,000 mls @ 50 mls/hr IV .Q20H [facility] Last Admin: 07/14/16 10:41 Dose: 50 mls/hr Ceftriaxone Sodium (Rocephin 2 Gm Ivpb) 100 mls @ 100 mls/hr IVPB Q12 [facility] PRN Reason: Protocol Stop: 08/08/16 10:01 Last Admin: 07/15/16 09:34 Dose: 100 mls/hr Lisinopril (Zestril) 20 mg PO DAILY [facility] Last Admin: 07/15/16 10:34 Dose: 20 mg Metoclopramide HCl (Reglan) 10 mg IVP ACHS [facility] [place] Last Admin: 07/15/16 08:42 Dose: 10 mg Metoprolol Tartrate (Lopressor) 25 mg PO BID [facility] Last Admin: 07/15/16 10:34 Dose: 25 mg Morphine Sulfate (Morphine) 2 mg IVP Q3H PRN PRN Reason: Pain, moderate (4-7) Last Admin: 07/13/16 01:20 Dose: 2 mg Morphine Sulfate (Morphine) 4 mg IVP Q3H PRN PRN Reason: Pain, severe (8-10) Last Admin: 07/15/16 05:25 Dose: 4 mg Ondansetron HCl (Zofran Inj) 4 mg IVP Q8H PRN PRN Reason: Nausea/Vomiting Last Admin: 07/08/16 07:57 Dose: 4 mg Pantoprazole Sodium (Protonix Inj) 40 mg IVP Q12 [facility] [place] Last Admin: 07/15/16 09:34 Dose: 40 mg Petrolatum (Desitin Maximum Strength Topical 40% Oint) 0.1 gm TOP BID [facility] [place] Last Admin: 07/15/16 10:33 Dose: 1 appl - Labs Labs: 07/15/16 07:10 07/15/16 07:10 PT 10.8 Seconds (9.9-11.8) 07/09/16 21:30 INR 1.00 (0.93-1.08) 07/09/16 21:30 APTT 69.2 Seconds (23.7-30.8) H 07/15/16 06:30 - Constitutional Appears: Non-toxic, No Acute Distress - Head Exam Head Exam: ATRAUMATIC - Eye Exam Eye Exam: EOMI - ENT Exam ENT Exam: Mucous Membranes Moist - Respiratory Exam Respiratory Exam: Rhonchi. absent: Rales, Wheezes - Cardiovascular Exam Cardiovascular Exam: REGULAR RHYTHM, +S1, +S2. absent: Gallop, Rubs, Murmur - GI/Abdominal Exam GI & Abdominal Exam: Distended, Soft. absent: Firm, Guarding, Rigid, Tenderness - Extremities Exam Extremities Exam: absent: Pedal Edema, Tenderness Additional comments: no sensation in LE - Neurological Exam Neurological Exam: Alert, Awake, Oriented x3 - Psychiatric Exam Psychiatric exam: Normal Affect, Normal Mood - Skin Skin Exam: Dry, Intact, Normal Color, Warm Assessment and Plan - Assessment and Plan (Free Text) Assessment: 51 year old male with no significant past medical history is s/p T2-T4 lamenectomy POD #7 US of LE showed R LE DVT s/p IVC filter Plan: 1. Epidural space abscess s/p lamenectomy T2-T4 POD #7 -Wound cultures grew strep pneumo -Pathology is pending -Rocephine -Morphine -CT of chest/abd/pelvis is negative for malignancy -ID is consulted -MRI c/ and w/o contrast on 07/07 prior to procedure showed fluid collection in ventral epidural space from T1-T5 with cord compression and obliteration of subarachinoid space; abnormal signal in T3&T4 which may represent osteomyelitis vs. metastatic dz; no disc herniation, spinal canal stenosis or neuroforaminal narrowing. Lumbar spine MRI was negative for cauda equina. Please see full reports for details. 2. Paralysis in LE - Will continue to monitor. - Aggressive PT/OT - boots are in place and pt is being turned to prevent stress ulcers 3. Neurogenic bowel vs. ileus - GI is consulted. No plan for EGD at this time as he coded during last attempt - NG tube was removed yesterday. Started on CLD which he tolerated. Advance diet per GI recs - Heme occult was positive for blood. Will continue to monitor Hgb. - Reglan 10 mg IV ACHS - Abd xray yesterday shows ileus 5. Neurogenic bladder - Haque in place - Urology is consulted suprapubic catherization outpatient basis. 6. R LE DVT - IVC filter placed - Pt is on heparin drip and closely monitored for bleeding - Contacted Eliquis: Pt will have to apply for pt assistance program. Will contact Dr. Wong about staring patient on coumadin in the mean time. - Heme/onc is consulted - 07/06 US of LE showed thrombus in right common and proximal femoral vein 7. CP R/O ACS - Cardio is consulted - Echo showed EF of 63.5%, normal LV, trace AR, MR and TR - Hgb A1c is 6.3 8. Iron deficiency anemia - Will cont to monitor at this time. H&H is stable - Iron 35 (low), TIBC 325 (normal), Ferritin 11 (low), Vit B12 327 (Normal), folate 7.8 (normal) 9. pressure ulcer on Right gluteal region - air mattress - continue to reposition q2 - multivit, zinv, vitamin C PO ordered - Wound care pending 10. Prophylaxis - Protonix - heparin drip Dispo: Pt uninsured. Not eligible for rehab facility. Not qualify for [facility] bc of income above $[phone] Case discussed with attending, Dr. Tutu Marc <Tutu Marc - Last Filed: 07/15/16 16:57> Objective - Vital Signs/Intake and Output Vital Signs (last 24 hours): Temp Pulse Resp BP Pulse Ox 98.5 F 74 20 146/76 94 L 07/15/16 12:00 07/15/16 14:00 07/15/16 12:00 07/15/16 12:00 07/15/16 06:00 Intake and Output: 07/15/16 07/15/16 06:59 18:59 Intake Total 1484 Output Total 500 Balance 984 - Medications Medications: Current Medications Albuterol/Ipratropium (Duoneb 3 Mg/0.5 Mg (3 Ml) Ud) 3 ml IH [id number] [facility] Last Admin: 07/15/16 13:34 Dose: 3 ml Ascorbic Acid (Vitamin C 500 Mg Tab) 500 mg PO DAILY [facility] Last Admin: 07/15/16 11:33 Dose: 500 mg Bacitracin (Bacitracin) 1 ea TOP DAILY [facility] Last Admin: 07/15/16 11:09 Dose: 1 ea Guaifenesin (Mucinex La) 600 mg PO BID [facility] Last Admin: 07/15/16 09:35 Dose: 600 mg Hydralazine HCl (Apresoline) 10 mg IVP Q6 PRN PRN Reason: FOR SBP>170 & Diastolic>100 Heparin Sodium/Sodium Chloride (Heparin 63377 Units/250ml 1/2 Normal Saline) 250 mls @ 19.006 mls/hr IV .[id number] PRN; Protocol; 14.35 UNITS/KG/HR PRN Reason: ADJUST RATE PER PROTOCOL Last Admin: 07/15/16 11:52 Dose: 29.536 mls/hr Dextrose/Sodium Chloride (Dextrose 5%/0.9% Ns 1000 Ml) 1,000 mls @ 50 mls/hr IV .Q20H [facility] Last Admin: 07/14/16 10:41 Dose: 50 mls/hr Ceftriaxone Sodium (Rocephin 2 Gm Ivpb) 100 mls @ 100 mls/hr IVPB Q12 [facility] PRN Reason: Protocol Stop: 08/08/16 10:01 Last Admin: 07/15/16 09:34 Dose: 100 mls/hr Lisinopril (Zestril) 20 mg PO DAILY [facility] Last Admin: 07/15/16 10:34 Dose: 20 mg Metoclopramide HCl (Reglan) 10 mg IVP ACHS [facility] Last Admin: 07/15/16 11:33 Dose: 10 mg Metoprolol Tartrate (Lopressor) 25 mg PO BID [facility] Last Admin: 07/15/16 10:34 Dose: 25 mg Morphine Sulfate (Morphine) 2 mg IVP Q3H PRN PRN Reason: Pain, moderate (4-7) Last Admin: 07/13/16 01:20 Dose: 2 mg Morphine Sulfate (Morphine) 4 mg IVP Q3H PRN PRN Reason: Pain, severe (8-10) Last Admin: 07/15/16 14:46 Dose: 4 mg Multivitamins/Minerals (Therapeutic-M Tab) 1 tab PO DAILY [facility] Last Admin: 07/15/16 11:33 Dose: 1 tab Ondansetron HCl (Zofran Inj) 4 mg IVP Q8H PRN PRN Reason: Nausea/Vomiting Last Admin: 07/08/16 07:57 Dose: 4 mg Pantoprazole Sodium (Protonix Inj) 40 mg IVP Q12 [facility] Last Admin: 07/15/16 09:34 Dose: 40 mg Petrolatum (Desitin Maximum Strength Topical 40% Oint) 0.1 gm TOP BID [facility] Last Admin: 07/15/16 10:33 Dose: 1 appl Zinc Sulfate (Zinc Sulfate 220 Mg Cap) 220 mg PO DAILY [facility] Last Admin: 07/15/16 11:33 Dose: 220 mg - Labs Labs: 07/15/16 07:10 07/15/16 07:10 PT 10.8 Seconds (9.9-11.8) 07/09/16 21:30 INR 1.00 (0.93-1.08) 07/09/16 21:30 APTT 69.2 Seconds (23.7-30.8) H 07/15/16 06:30 Attending/Attestation - Attestation I have personally seen and examined this patient.: Yes I have fully participated in the care of the patient.: Yes I have reviewed all pertinent clinical information, including history, physical exam and plan: Yes Notes (Text): I have seen and examined patient at bedside. This is 51 year old male with history of substance abuse (snorts cocaine), tobacco, alcohol use who got admitted for evaluation of back pain and found to have epidural abscess T1-T5, osteomyelitis, urinary retention, acute RLE DVT. He underwent emergent laminectomy and epidural abscess was drained. Wound culture is growing strep pneumonia. He is on rocephin. Blood cultures are negative. HIV negative. He has no or may be slight improvement in sensory or motor function. As per neurosurgery, prognosis is not good as patient did not regain function yet. Need aggressive PT. During his stay, patient was taken to EGD for evaluation of gastric distention and he coded after anesthesia. He got extubated few days ago. FOBT positive. Patient has paralytic ileus. NGT was removed yesterday and he has been tolerating clear liquid diet. Diet advanced to full liquids. He had 2 BM yesterday. Continue PPI and reglan. He has been on heparin drip for acute RLE DVT and is s/p IVC filter. Eliquis could not be arranged. Will discuss with heme if coumadin can be started. Hypercoagulable work up still pending. CT chest, abdomen and pelvis negative. He has haque catheter for neurogenic bladder. Urology consult appreciated. No plan as of yet for suprapubic catheterization. Echo revealed Normal LVEF. Psych consult appreciated. CM are working on POA. He was also found to have stage 1 pressure ulcer on right gluteal area. Will continue air mattress, mvi, zinc, vitamin c, zinc and continue to reposition q2 hours. Will follow up on Wound care consult. Dr Tutu Marc
[2016-07-15] MEDS: Multivitamin With Minerals Tab PO SCH (11:33)
--- NOTE | 2016-07-15 15:36 | CP.PCM.PN ---
Subjective - Date & Time of Evaluation Date of Evaluation: 07/15/16 Time of Evaluation: 09:20 - Subjective Subjective: Noted patient to have 2 loose bowel movements. No fevers overnight, no vomiting , a little more sensation in the lower extremities. Objective - Vital Signs/Intake and Output Vital Signs (last 24 hours): Temp Pulse Resp BP Pulse Ox 98.5 F 79 20 146/76 94 L 07/15/16 12:00 07/15/16 12:00 07/15/16 12:00 07/15/16 12:00 07/15/16 06:00 Intake and Output: 07/15/16 07/15/16 06:59 18:59 Intake Total 1484 Output Total 500 Balance 984 - Medications Medications: Current Medications Albuterol/Ipratropium (Duoneb 3 Mg/0.5 Mg (3 Ml) Ud) 3 ml IH [id number] [facility] Last Admin: 07/15/16 13:34 Dose: 3 ml Ascorbic Acid (Vitamin C 500 Mg Tab) 500 mg PO DAILY [facility] Last Admin: 07/15/16 11:33 Dose: 500 mg Bacitracin (Bacitracin) 1 ea TOP DAILY [facility] Last Admin: 07/15/16 11:09 Dose: 1 ea Guaifenesin (Mucinex La) 600 mg PO BID [facility] Last Admin: 07/15/16 09:35 Dose: 600 mg Hydralazine HCl (Apresoline) 10 mg IVP Q6 PRN PRN Reason: FOR SBP>170 & Diastolic>100 Heparin Sodium/Sodium Chloride (Heparin 44871 Units/250ml 1/2 Normal Saline) 250 mls @ 19.006 mls/hr IV .[id number] PRN; Protocol; 14.35 UNITS/KG/HR PRN Reason: ADJUST RATE PER PROTOCOL Last Admin: 07/15/16 11:52 Dose: 29.536 mls/hr Dextrose/Sodium Chloride (Dextrose 5%/0.9% Ns 1000 Ml) 1,000 mls @ 50 mls/hr IV .Q20H [facility] Last Admin: 07/14/16 10:41 Dose: 50 mls/hr Ceftriaxone Sodium (Rocephin 2 Gm Ivpb) 100 mls @ 100 mls/hr IVPB Q12 [facility] PRN Reason: Protocol Stop: 08/08/16 10:01 Last Admin: 07/15/16 09:34 Dose: 100 mls/hr Lisinopril (Zestril) 20 mg PO DAILY [facility] Last Admin: 07/15/16 10:34 Dose: 20 mg Metoclopramide HCl (Reglan) 10 mg IVP ACHS [facility] Last Admin: 07/15/16 11:33 Dose: 10 mg Metoprolol Tartrate (Lopressor) 25 mg PO BID [facility] Last Admin: 07/15/16 10:34 Dose: 25 mg Morphine Sulfate (Morphine) 2 mg IVP Q3H PRN PRN Reason: Pain, moderate (4-7) Last Admin: 07/13/16 01:20 Dose: 2 mg Morphine Sulfate (Morphine) 4 mg IVP Q3H PRN PRN Reason: Pain, severe (8-10) Last Admin: 07/15/16 14:46 Dose: 4 mg Multivitamins/Minerals (Therapeutic-M Tab) 1 tab PO DAILY [facility] Last Admin: 07/15/16 11:33 Dose: 1 tab Ondansetron HCl (Zofran Inj) 4 mg IVP Q8H PRN PRN Reason: Nausea/Vomiting Last Admin: 07/08/16 07:57 Dose: 4 mg Pantoprazole Sodium (Protonix Inj) 40 mg IVP Q12 [facility] Last Admin: 07/15/16 09:34 Dose: 40 mg Petrolatum (Desitin Maximum Strength Topical 40% Oint) 0.1 gm TOP BID [facility] Last Admin: 07/15/16 10:33 Dose: 1 appl Zinc Sulfate (Zinc Sulfate 220 Mg Cap) 220 mg PO DAILY [facility] Last Admin: 07/15/16 11:33 Dose: 220 mg - Labs Labs: 07/15/16 07:10 07/15/16 07:10 PT 10.8 Seconds (9.9-11.8) 07/09/16 21:30 INR 1.00 (0.93-1.08) 07/09/16 21:30 APTT 69.2 Seconds (23.7-30.8) H 07/15/16 06:30 - Constitutional Appears: Non-toxic, No Acute Distress - Head Exam Head Exam: NORMAL INSPECTION - ENT Exam ENT Exam: Mucous Membranes Moist - Neck Exam Neck Exam: absent: Lymphadenopathy, Meningismus - Respiratory Exam Respiratory Exam: Decreased Breath Sounds - Cardiovascular Exam Cardiovascular Exam: +S1, +S2 - GI/Abdominal Exam GI & Abdominal Exam: Soft. 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
[2016-07-16] MEDS: Albuterol-Ipratrop 3 mg / 0.5 (3 ml) UD IH SCH ×4 (01:39→20:02)
[2016-07-16] MEDS: Morphine 4 mg/ml ISec IVP PRN ×4 (02:02→15:04)
[2016-07-16] MEDS: Dextrose 5%/0.9% NS 1,000 ML IV SCH ×4 (04:09→17:38)
[2016-07-16] MEDS: Heparin25000 units/250ml 1/2NS 250 ML IV PRN ×2 (04:10→09:06)
[2016-07-16 07:32] LABS: BASO # 0.03 K/mm3 (0.0-2.0); BASO % 0.2 % (0.0-3.0); EOS # 0.2 (0.0-0.7); EOS % 1.8 % (1.5-5.0); GRAN # 10.28 (1.4-6.5); HEMOGLOBIN 11.3 gm/dL (14.0-18.0); LYMPH # 1.1 (1.2-3.4); LYMPH % 8.7 % (22.0-35.0); MEAN CELL VOLUME 92.1 fL (80.0-105.0); MEAN CORPUSCULAR HGB CONC 33.6 g/dl (31.0-37.0); MEAN PLATELET VOLUME 12.4 fl (7.0-11.0); MONO # 1.2 (0.1-0.6); MONO % 9.3 % (1.0-6.0); PLATELET COUNT 266 10^3/uL (120.0-450.0); RBC 3.65 10^6/uL (3.5-6.1); WHITE BLOOD COUNT 12.9 10^3/ul (4.5-11.0)
[2016-07-16 07:46] LABS: CALCIUM 9.1 mg/dL (8.4-10.5); MAGNESIUM 2.6 mg/dL (1.7-2.2)
--- NOTE | 2016-07-16 08:57 | RAD ---
HISTORY: distenstion/v COMPARISON: 07/14/2016 FINDINGS: BOWEL: Multiple dilated loops of small bowel are seen consistent with partial obstruction or ileus BONES: Normal. OTHER FINDINGS: None. IMPRESSION: Multiple dilated loops of small bowel are seen consistent with partial obstruction or ileus
[2016-07-16] MEDS ORDERED: Sodium Chloride 0.9% 1,000 ML IV SCH ×2 (09:15)
--- NOTE | 2016-07-16 09:17 | CP.PCM.PN ---
<NorbertoSavannah - Last Filed: 07/16/16 09:14> Subjective - Date & Time of Evaluation Date of Evaluation: 07/16/16 Time of Evaluation: 09:14 - Subjective Subjective: Gastroenterology Fellow/PGY4 Progress Note Patient notes improving sensation to lower extremities. No bowel movement overnight confirmed by nursing. Two episodes of liquid vomitus overnight estimated as 100cc per nursing with large intake of water yesterday (2 pitchers) . 12-point review of systems negative except for as above. Objective - Vital Signs/Intake and Output Vital Signs (last 24 hours): Temp Pulse Resp BP Pulse Ox 97.8 F 60 22 105/55 L 97 07/16/16 06:00 07/16/16 06:00 07/16/16 06:00 07/16/16 06:00 07/16/16 06:00 Intake and Output: 07/16/16 07/16/16 06:59 18:59 Intake Total 1124 0 Output Total 900 Balance 224 0 - Medications Medications: Current Medications Albuterol/Ipratropium (Duoneb 3 Mg/0.5 Mg (3 Ml) Ud) 3 ml IH [id number] [facility] Last Admin: 07/16/16 08:29 Dose: Not Given Ascorbic Acid (Vitamin C 500 Mg Tab) 500 mg PO DAILY [facility] Last Admin: 07/15/16 11:33 Dose: 500 mg Bacitracin (Bacitracin) 1 ea TOP DAILY [facility] Last Admin: 07/15/16 11:09 Dose: 1 ea Guaifenesin (Mucinex La) 600 mg PO BID [facility] Last Admin: 07/15/16 17:43 Dose: 600 mg Hydralazine HCl (Apresoline) 10 mg IVP Q6 PRN PRN Reason: FOR SBP>170 & Diastolic>100 Dextrose/Sodium Chloride (Dextrose 5%/0.9% Ns 1000 Ml) 1,000 mls @ 50 mls/hr IV .Q20H [facility] Last Admin: 07/16/16 05:07 Dose: Not Given Ceftriaxone Sodium (Rocephin 2 Gm Ivpb) 100 mls @ 100 mls/hr IVPB Q12 DONAL PRN Reason: Protocol Stop: 08/08/16 10:01 Last Admin: 07/15/16 22:24 Dose: 100 mls/hr Heparin Sodium/Sodium Chloride (Heparin 88265 Units/250ml 1/2 Normal Saline) 250 mls @ 31.943 mls/hr IV .Q7H50M PRN; Protocol; 22.3 UNITS/KG/HR PRN Reason: ADJUST RATE PER PROTOCOL Last Titration: 07/16/16 09:11 Dose: 20.87 units/kg/hr Lisinopril (Zestril) 20 mg PO DAILY [facility] Last Admin: 07/15/16 10:34 Dose: 20 mg Metoclopramide HCl (Reglan) 10 mg IVP ACHS [facility] Last Admin: 07/16/16 07:53 Dose: 10 mg Metoprolol Tartrate (Lopressor) 25 mg PO BID [facility] Last Admin: 07/15/16 17:42 Dose: 25 mg Morphine Sulfate (Morphine) 2 mg IVP Q3H PRN PRN Reason: Pain, moderate (4-7) Last Admin: 07/13/16 01:20 Dose: 2 mg Morphine Sulfate (Morphine) 4 mg IVP Q3H PRN PRN Reason: Pain, severe (8-10) Last Admin: 07/16/16 07:53 Dose: 4 mg Multivitamins/Minerals (Therapeutic-M Tab) 1 tab PO DAILY [facility] Last Admin: 07/15/16 11:33 Dose: 1 tab Ondansetron HCl (Zofran Inj) 4 mg IVP Q8H PRN PRN Reason: Nausea/Vomiting Last Admin: 07/16/16 02:02 Dose: 4 mg Pantoprazole Sodium (Protonix Inj) 40 mg IVP Q12 [facility] Last Admin: 07/15/16 22:25 Dose: 40 mg Petrolatum (Desitin Maximum Strength Topical 40% Oint) 0.1 gm TOP BID [facility] Last Admin: 07/15/16 17:43 Dose: 1 appl Zinc Sulfate (Zinc Sulfate 220 Mg Cap) 220 mg PO DAILY [facility] Last Admin: 07/15/16 11:33 Dose: 220 mg - Labs Labs: 07/16/16 06:30 07/16/16 06:30 PT 10.8 Seconds (9.9-11.8) 07/09/16 21:30 INR 1.00 (0.93-1.08) 07/09/16 21:30 APTT 86.0 Seconds (23.7-30.8) H* 07/16/16 06:30 - Constitutional Appears: Non-toxic, No Acute Distress - Head Exam Head Exam: ATRAUMATIC, NORMOCEPHALIC - Eye Exam Eye Exam: EOMI, PERRL Pupil Exam: PERRL. absent: Miosis, Mydriatic - ENT Exam ENT Exam: Mucous Membranes Moist, Normal Oropharynx - Neck Exam Neck Exam: Full ROM, Normal Inspection - Respiratory Exam Respiratory Exam: Clear to Ausculation Bilateral. absent: Rales, Rhonchi, Wheezes - Cardiovascular Exam Cardiovascular Exam: RRR, +S1, +S2. absent: Gallop, Rubs - GI/Abdominal Exam GI & Abdominal Exam: Distended, Firm, Hypoactive Bowel Sounds. absent: Guarding , Rigid, Tenderness, Organomegaly, Rebound - Extremities Exam Extremities Exam: Normal Inspection. absent: Pedal Edema - Neurological Exam Neurological Exam: Alert, Awake, Motor Sensory Deficit - Psychiatric Exam Psychiatric exam: Normal Affect, Normal Mood - Skin Skin Exam: Dry, Intact, Normal Color, Warm Assessment and Plan - Assessment and Plan (Free Text) Assessment: 51 year old male with history of polysubstance abuse presenting with chest and back pain. Developed bilateral lower extremities motor/sensory deficit complicated by urinary incontinence. POD9 (07/07) emergent decompressive laminectomy T2-4 after MRI showing concern for ventral epidural mass, abscess collection from T1-4 extending to L4 to L5 with dorsal spinal cord compression leading to paraplegic state with urinary incontinence and fecal retention. Repeat CT A/P (07/10) showing marked improvement in paralytic ileus. 07/09 cardiopulmonary arrest during jose manuel-procedural intubation for endoscopy. No prior EGD or colonoscopy. Plan: >repeat abdominal xray- persistent dilated loops >start Miralax BID and Dulcolax daily >continue Reglan to 10 IV ACHS >PPI BID >continue full liquids >send Cdiff, stool culture if repeat watery stools >on Heparin drip-RLE DVT >H/H stable >will continue to follow <Dieudonne Ricardo MD - Last Filed: 07/16/16 15:51> Objective - Vital Signs/Intake and Output Vital Signs (last 24 hours): Temp Pulse Resp BP Pulse Ox 97.8 F 52 L 18 105/52 L 97 07/16/16 12:00 07/16/16 12:00 07/16/16 12:00 07/16/16 12:00 07/16/16 06:00 Intake and Output: 07/16/16 07/16/16 06:59 18:59 Intake Total 1124 300 Output Total 900 450 Balance 224 -150 - Medications Medications: Current Medications Albuterol/Ipratropium (Duoneb 3 Mg/0.5 Mg (3 Ml) Ud) 3 ml IH [id number] [facility] Last Admin: 07/16/16 13:27 Dose: Not Given Ascorbic Acid (Vitamin C 500 Mg Tab) 500 mg PO DAILY [facility] Last Admin: 07/16/16 09:41 Dose: 500 mg Bacitracin (Bacitracin) 1 ea TOP DAILY [facility] Last Admin: 07/16/16 13:19 Dose: 1 ea Bisacodyl (Dulcolax) 5 mg PO DAILY [facility] Last Admin: 07/16/16 09:41 Dose: 5 mg Guaifenesin (Mucinex La) 600 mg PO BID [facility] Last Admin: 07/16/16 09:41 Dose: 600 mg Hydralazine HCl (Apresoline) 10 mg IVP Q6 PRN PRN Reason: FOR SBP>170 & Diastolic>100 Ceftriaxone Sodium (Rocephin 2 Gm Ivpb) 100 mls @ 100 mls/hr IVPB Q12 DONAL PRN Reason: Protocol Stop: 08/08/16 10:01 Last Admin: 07/16/16 09:42 Dose: 100 mls/hr Heparin Sodium/Sodium Chloride (Heparin 47413 Units/250ml 1/2 Normal Saline) 250 mls @ 31.943 mls/hr IV .Q7H50M PRN; Protocol; 22.3 UNITS/KG/HR PRN Reason: ADJUST RATE PER PROTOCOL Last Titration: 07/16/16 15:15 Dose: 20.87 units/kg/hr Dextrose/Sodium Chloride (Dextrose 5%/0.9% Ns 1000 Ml) 1,000 mls @ 150 mls/hr IV .Q6H40M [facility] Last Admin: 07/16/16 12:15 Dose: 150 mls/hr Metoclopramide HCl (Reglan) 10 mg IVP ACHS [facility] Last Admin: 07/16/16 12:15 Dose: 10 mg Metoprolol Tartrate (Lopressor) 25 mg PO BID [facility] Last Admin: 07/16/16 09:40 Dose: 25 mg Morphine Sulfate (Morphine) 2 mg IVP Q3H PRN PRN Reason: Pain, moderate (4-7) Last Admin: 07/13/16 01:20 Dose: 2 mg Morphine Sulfate (Morphine) 4 mg IVP Q3H PRN PRN Reason: Pain, severe (8-10) Last Admin: 07/16/16 15:04 Dose: 4 mg Multivitamins/Minerals (Therapeutic-M Tab) 1 tab PO DAILY [facility] Last Admin: 07/16/16 09:41 Dose: 1 tab Nicotine (Nicoderm Cq) 1 patch TD DAILY [facility] Last Admin: 07/16/16 15:05 Dose: 1 patch Ondansetron HCl (Zofran Inj) 4 mg IVP Q8H PRN PRN Reason: Nausea/Vomiting Last Admin: 07/16/16 02:02 Dose: 4 mg Pantoprazole Sodium (Protonix Inj) 40 mg IVP Q12 [facility] Last Admin: 07/16/16 09:40 Dose: 40 mg Petrolatum (Desitin Maximum Strength Topical 40% Oint) 0.1 gm TOP BID [facility] Last Admin: 07/16/16 09:39 Dose: 1 appl Polyethylene Glycol (Miralax) 17 gm PO BID [facility] Last Admin: 07/16/16 09:40 Dose: 17 gm Zinc Sulfate (Zinc Sulfate 220 Mg Cap) 220 mg PO DAILY [facility] Last Admin: 07/16/16 09:41 Dose: 220 mg - Labs Labs: 07/16/16 06:30 07/16/16 06:30 PT 10.8 Seconds (9.9-11.8) 07/09/16 21:30 INR 1.00 (0.93-1.08) 07/09/16 21:30 APTT 86.0 Seconds (23.7-30.8) H* 07/16/16 06:30 Attending/Attestation - Attestation I have personally seen and examined this patient.: Yes I have fully participated in the care of the patient.: Yes I have reviewed all pertinent clinical information, including history, physical exam and plan: Yes Notes (Text): 07/16/16 15:48 Patient seen with GI fellow. This is a 51 year old male with history of polysubstance abuse presenting with bilateral lower extremities motor/sensory deficit complicated by urinary incontinence s/p emergent decompressive laminectomy T2-4 after MRI showing concern for ventral epidural mass, abscess collection. Hopsital course complicated by post op ileus. Repeat AXR with dilated loops. States did not move bowels today. Start miralax and dulcolax. abdomen exam tense but non tender. Continue full liquids. PPI bid. Heparin gtt for LE DVT
[2016-07-16] MEDS: Zinc Oxide Topical 40% Oint (Desitin) TOP SCH ×2 (09:39→18:18)
[2016-07-16] MEDS: POLYETHYLENE GLYCOL 3350 17 GM/Dose PACKET PO SCH ×2 (09:40→18:17)
[2016-07-16] MEDS: guaiFENesin 600 mg ER Tab PO SCH ×2 (09:41→18:18)
[2016-07-16] MEDS: Multivitamin With Minerals Tab PO SCH (09:41)
[2016-07-16] MEDS ORDERED: Bisacodyl 5mg EC Tab PO SCH (10:00)
--- NOTE | 2016-07-16 10:31 | PN ---
DATE: 07/16/2016 REASON FOR CONSULTATION AND FOLLOWUP: Status post spinal abscess, then DVT, status post CPR, status post intubated, now successfully extubated, weakness of both lower extremities (paralysis). BRIEF CLINICAL HISTORY: This is a 51-year-old male admitted with 1-week history of chest pain radiat ing to the back which was related to spinal abscess. Also found to be DVT of the right lower extremi ty. The patient subsequently underwent spinal abscess drainage and later on, started on IV heparin. Postop course was completed with coffee-ground vomitus. NG tube. The patient underwent endoscopy w ith a difficult intubation and with CPR for 1 minute and then intubated, now successfully extubated. Now, the patient is on 2R, but complained of weakness of both lower extremities, inability to move a nd apparently appeared to be paralysis of both lower extremities. Denies any chest pain, shortness o f breath, any palpitation. PHYSICAL EXAMINATION: VITAL SIGNS: Temperature afebrile, heart rate 60, blood pressure 105/55. HEENT: PERRLA. Extraocular muscles intact. NECK: Supple. No carotid bruits. No thyromegaly. CHEST: Clear to auscultation. HEART: S1, S2 regular. ABDOMEN: Soft. EXTREMITIES: Clubbing and cyanosis negative. LABORATORY DATA: Blood workup as follows: WBC 12.9, hemoglobin 11, hematocrit 33.6, platelet count 266. Chemistry shows sodium 135, potassium 5.0, chloride 97, carbon dioxide 27, anion gap of 16, BUN 46, creatinine 2.5. IMPRESSION: Acute kidney injury, paralysis, spinal abscess, deep venous thrombosis of right lower ex tremity, post CPR, status post intubated. Most recent echocardiography showed ejection fraction 55-6 0%, normal chamber size, normal thickness, trace aortic regurgitation, trace mitral regurgitation, tr luzmaria tricuspid regurgitation. RECOMMENDATION: Continue IV fluid, continue heparin. Continue beta johann. Avoid nephrotoxic medi cation. We will start lisinopril, but will hold because of acute kidney injury. If needed, we will start Norvasc for blood pressure, will put p.r.n. hydralazine. Avoid nephrotoxic medication. We sangita l follow with you. Continue IV fluid, monitor electrolytes daily. We will follow with you. We will discuss with the ne urosurgical. I no intervention is planned, consider starting Coumadin. We will follow with you. Thank you, Dr. Marc, for providing us the opportunity in taking care of the patient. We will follow with you. Jarrod Barbour MD cc: [id number] TT: 07/16/2016 10:30:49 Confirmation # [id number] Dictation # [id number]
[2016-07-16] MEDS ORDERED: Dextrose 5%/0.9% NS 1,000 ML IV SCH (11:14)
[2016-07-16] MEDS: Bacitracin 500 Units/gm Oint Foilpak UD TOP SCH (13:19)
--- NOTE | 2016-07-16 15:41 | CP.PCM.PN ---
Subjective - Date & Time of Evaluation Date of Evaluation: 07/16/16 Time of Evaluation: 10:35 - Subjective Subjective: Comfortable in bed, not in distress. No BM's yet today. Afebrile overnight. Objective - Vital Signs/Intake and Output Vital Signs (last 24 hours): Temp Pulse Resp BP Pulse Ox 97.8 F 52 L 18 105/52 L 97 07/16/16 12:00 07/16/16 12:00 07/16/16 12:00 07/16/16 12:00 07/16/16 06:00 Intake and Output: 07/16/16 07/16/16 06:59 18:59 Intake Total 1124 300 Output Total 900 450 Balance 224 -150 - Medications Medications: Current Medications Albuterol/Ipratropium (Duoneb 3 Mg/0.5 Mg (3 Ml) Ud) 3 ml IH [id number] REPLACED [facility] Last Admin: 07/16/16 13:27 Dose: Not Given Ascorbic Acid (Vitamin C 500 Mg Tab) 500 mg PO DAILY [facility] Last Admin: 07/16/16 09:41 Dose: 500 mg Bacitracin (Bacitracin) 1 ea TOP DAILY [facility] Last Admin: 07/16/16 13:19 Dose: 1 ea Bisacodyl (Dulcolax) 5 mg PO DAILY [facility] Last Admin: 07/16/16 09:41 Dose: 5 mg Guaifenesin (Mucinex La) 600 mg PO BID [facility] Last Admin: 07/16/16 09:41 Dose: 600 mg Hydralazine HCl (Apresoline) 10 mg IVP Q6 PRN PRN Reason: FOR SBP>170 & Diastolic>100 Ceftriaxone Sodium (Rocephin 2 Gm Ivpb) 100 mls @ 100 mls/hr IVPB Q12 DONAL PRN Reason: Protocol Stop: 08/08/16 10:01 Last Admin: 07/16/16 09:42 Dose: 100 mls/hr Heparin Sodium/Sodium Chloride (Heparin 65768 Units/250ml 1/2 Normal Saline) 250 mls @ 31.943 mls/hr IV .Q7H50M PRN; Protocol; 22.3 UNITS/KG/HR PRN Reason: ADJUST RATE PER PROTOCOL Last Titration: 07/16/16 15:15 Dose: 20.87 units/kg/hr Dextrose/Sodium Chloride (Dextrose 5%/0.9% Ns 1000 Ml) 1,000 mls @ 150 mls/hr IV .Q6H40M [facility]PL[facility] Last Admin: 07/16/16 12:15 Dose: 150 mls/hr Metoclopramide HCl (Reglan) 10 mg IVP ACHS [facility]PL[facility] Last Admin: 07/16/16 12:15 Dose: 10 mg Metoprolol Tartrate (Lopressor) 25 mg PO BID [facility] Last Admin: 07/16/16 09:40 Dose: 25 mg Morphine Sulfate (Morphine) 2 mg IVP Q3H PRN PRN Reason: Pain, moderate (4-7) Last Admin: 07/13/16 01:20 Dose: 2 mg Morphine Sulfate (Morphine) 4 mg IVP Q3H PRN PRN Reason: Pain, severe (8-10) Last Admin: 07/16/16 15:04 Dose: 4 mg Multivitamins/Minerals (Therapeutic-M Tab) 1 tab PO DAILY [facility] Last Admin: 07/16/16 09:41 Dose: 1 tab Nicotine (Nicoderm Cq) 1 patch TD DAILY [facility] Last Admin: 07/16/16 15:05 Dose: 1 patch Ondansetron HCl (Zofran Inj) 4 mg IVP Q8H PRN PRN Reason: Nausea/Vomiting Last Admin: 07/16/16 02:02 Dose: 4 mg Pantoprazole Sodium (Protonix Inj) 40 mg IVP Q12 [facility]PL[facility] Last Admin: 07/16/16 09:40 Dose: 40 mg Petrolatum (Desitin Maximum Strength Topical 40% Oint) 0.1 gm TOP BID [facility]PL[facility]ED BY [facility] Last Admin: 07/16/16 09:39 Dose: 1 appl Polyethylene Glycol (Miralax) 17 gm PO BID [facility]PL[facility] Last Admin: 07/16/16 09:40 Dose: 17 gm Zinc Sulfate (Zinc Sulfate 220 Mg Cap) 220 mg PO DAILY [facility] Last Admin: 07/16/16 09:41 Dose: 220 mg - Labs Labs: 07/16/16 06:30 07/16/16 06:30 PT 10.8 Seconds (9.9-11.8) 07/09/16 21:30 INR 1.00 (0.93-1.08) 07/09/16 21:30 APTT 86.0 Seconds (23.7-30.8) H* 07/16/16 06:30 - Constitutional Appears: Non-toxic, No Acute Distress - Head Exam Head Exam: NORMAL INSPECTION - Neck Exam Neck Exam: absent: Lymphadenopathy, Meningismus - Respiratory Exam Respiratory Exam: Decreased Breath Sounds - Cardiovascular Exam Cardiovascular Exam: +S1, +S2 - GI/Abdominal Exam GI & Abdominal Exam: Soft. 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
[2016-07-16 16:02] LABS: CALCIUM 9.1 mg/dL (8.4-10.5)
[2016-07-16] MEDS ORDERED: Lidocaine 2% Jelly (Uro-Jet) TOP ONE (16:35)
--- NOTE | 2016-07-16 17:22 | CP.PCM.CON ---
History of Present Illness - History of Present Illness History of Present Illness: General Surgery Consult Note for Dr. Renteria CC: Abdominal Distention X 2 days HPI: This is a 51M with a PMH of meningitis with subsequent paralysis. Patient denies any other medical history. Patient was admitted on 07/06 due to chest and back pain. He experienced urinary incontinence and on 07/07 he had a decompression laminectomy. On 07/08 he developed abdominal distention. CT showed fecal retention. NGT was placed which had 1100 cc out. Last BM was 2 weeks prior to admission. Patient went for an endoscopy and went into cardiac arrest during induction of anesthesia. 2 days ago the patient had his last bowel movement after being given a suppository. Since that time he has not had flatus nor has he had a bowel movement. He denies any abdominal pain, fevers, chills, chest pain. Admits to cough and back pain. PMHx: Denies PSHx: Denies Allergies: NKDA Family Hx: Dad: denies history of illness; Mother: DM2; Brother: DM2 Social Hx: smokes 1ppd for past 15yrs, 2-3 beers daily; denies illicit drugs Review of Systems - Constitutional Constitutional: absent: Anorexia, Chills - EENT Eyes: absent: Blurred Vision, Dry Eye Ears: absent: Ear Discharge, Ear Pain - Cardiovascular Cardiovascular: absent: Chest Pain - Respiratory Respiratory: Chest Congestion - Gastrointestinal Gastrointestinal: Bloating. absent: Abdominal Pain, Diarrhea, Heartburn, Nausea , Vomiting - Genitourinary Genitourinary: Urinary Incontinence Past Patient History - Past Social History Smoking Status: Heavy Smoker > 10 Cigarettes Daily Alcohol: < 2 Drinks/Day Drugs: Denies - CARDIAC Hx Cardiac Disorders: No - PULMONARY Hx Respiratory Disorders: No - HEMATOLOGICAL/ONCOLOGICAL Hx Blood Transfusions: (UNK) Hx Blood Transfusion Reaction: (UNK) - MUSCULOSKELETAL/RHEUMATOLOGICAL Hx Falls: No - PSYCHIATRIC Hx Substance Use: No - SURGICAL HISTORY Hx Surgeries: No - ANESTHESIA Hx Anesthesia Reactions: (UNK) Hx Malignant Hyperthermia: (UNK) Meds Allergies/Adverse Reactions: Allergies Allergy/AdvReac Type Severity Reaction Status Date / Time No Known Allergies Allergy Verified 07/06/16 16:07 - Medications Medications: Current Medications Albuterol/Ipratropium (Duoneb 3 Mg/0.5 Mg (3 Ml) Ud) 3 ml IH [id number] [facility] Last Admin: 07/16/16 13:27 Dose: Not Given Ascorbic Acid (Vitamin C 500 Mg Tab) 500 mg PO DAILY [facility] Last Admin: 07/16/16 09:41 Dose: 500 mg Bacitracin (Bacitracin) 1 ea TOP DAILY [facility] Last Admin: 07/16/16 13:19 Dose: 1 ea Bisacodyl (Dulcolax) 5 mg PO DAILY [facility] Last Admin: 07/16/16 09:41 Dose: 5 mg Guaifenesin (Mucinex La) 600 mg PO BID [facility] Last Admin: 07/16/16 09:41 Dose: 600 mg Hydralazine HCl (Apresoline) 10 mg IVP Q6 PRN PRN Reason: FOR SBP>170 & Diastolic>100 Ceftriaxone Sodium (Rocephin 2 Gm Ivpb) 100 mls @ 100 mls/hr IVPB Q12 DONAL PRN Reason: Protocol Stop: 08/08/16 10:01 Last Admin: 07/16/16 09:42 Dose: 100 mls/hr Heparin Sodium/Sodium Chloride (Heparin 21585 Units/250ml 1/2 Normal Saline) 250 mls @ 31.943 mls/hr IV .Q7H50M PRN; Protocol; 22.3 UNITS/KG/HR PRN Reason: ADJUST RATE PER PROTOCOL Last Titration: 07/16/16 15:15 Dose: 20.87 units/kg/hr Dextrose/Sodium Chloride (Dextrose 5%/0.9% Ns 1000 Ml) 1,000 mls @ 150 mls/hr IV .Q6H40M [facility] Last Admin: 07/16/16 12:15 Dose: 150 mls/hr Metoclopramide HCl (Reglan) 10 mg IVP ACHS [facility] Last Admin: 07/16/16 16:28 Dose: 10 mg Metoprolol Tartrate (Lopressor) 25 mg PO BID [facility] Last Admin: 07/16/16 09:40 Dose: 25 mg Morphine Sulfate (Morphine) 2 mg IVP Q3H PRN PRN Reason: Pain, moderate (4-7) Last Admin: 07/13/16 01:20 Dose: 2 mg Morphine Sulfate (Morphine) 4 mg IVP Q3H PRN PRN Reason: Pain, severe (8-10) Last Admin: 04/19/17 15:04 Dose: 4 mg Multivitamins/Minerals (Therapeutic-M Tab) 1 tab PO DAILY [facility] Last Admin: 07/16/16 09:41 Dose: 1 tab Nicotine (Nicoderm Cq) 1 patch TD DAILY [facility] Last Admin: 07/16/16 15:05 Dose: 1 patch Ondansetron HCl (Zofran Inj) 4 mg IVP Q8H PRN PRN Reason: Nausea/Vomiting Last Admin: 07/16/16 02:02 Dose: 4 mg Pantoprazole Sodium (Protonix Inj) 40 mg IVP Q12 [facility] Last Admin: 07/16/16 09:40 Dose: 40 mg Petrolatum (Desitin Maximum Strength Topical 40% Oint) 0.1 gm TOP BID [facility] Last Admin: 07/16/16 09:39 Dose: 1 appl Polyethylene Glycol (Miralax) 17 gm PO BID [facility] Last Admin: 07/16/16 09:40 Dose: 17 gm Zinc Sulfate (Zinc Sulfate 220 Mg Cap) 220 mg PO DAILY [facility] Last Admin: 07/16/16 09:41 Dose: 220 mg Physical Exam - Constitutional Appears: Non-toxic, No Acute Distress - Head Exam Head Exam: ATRAUMATIC, NORMOCEPHALIC - Eye Exam Eye Exam: EOMI, Normal appearance - ENT Exam ENT Exam: Mucous Membranes Moist, Normal Exam - Respiratory Exam Respiratory Exam: NORMAL BREATHING PATTERN - Cardiovascular Exam Cardiovascular Exam: +S1, +S2 - GI/Abdominal Exam GI & Abdominal Exam: Distended, Hernia. absent: Guarding, Rebound, Rigid - Extremities Exam Extremities exam: Positive for: normal inspection - Back Exam Back exam: rash noted - Neurological Exam Neurological exam: Alert, Oriented x3 - Psychiatric Exam Psychiatric exam: Normal Affect, Normal Mood - Skin Skin Exam: Dry, Intact Results - Vital Signs Recent Vital Signs: Last Vital Signs Temp 97.8 F 07/16/16 12:00 Pulse 52 L 07/16/16 12:00 Resp 18 07/16/16 12:00 BP 105/52 L 07/16/16 12:00 Pulse Ox 97 07/16/16 06:00 - Labs Result Diagrams: 07/16/16 06:30 07/16/16 15:40 Labs: Laboratory Results - last 24 hr 07/15/16 07/16/16 07/16/16 21:14 06:30 07:26 WBC 12.9 H D RBC 3.65 Hgb 11.3 L Hct 33.6 L MCV 92.1 MCH 31.0 MCHC 33.6 RDW 14.0 Plt Count 266 MPV 12.4 H Gran % 80.0 H Lymph % (Auto) 8.7 L [place] % (Auto) 9.3 H Eos % (Auto) 1.8 Baso % (Auto) 0.2 Gran # 10.28 H Lymph # 1.1 L [place] # 1.2 H Eos # 0.2 Baso # 0.03 APTT 86.0 H* Sodium 135 Potassium 5.1 H Chloride 97 L Carbon Dioxide 27 Anion Gap 16 BUN 46 H Creatinine 2.5 H Est GFR ( Amer) 33 Est GFR (Non-Af Amer) 27 POC Glucose (mg/dL) 138 H 105 Random Glucose 113 H Calcium 9.1 Phosphorus 6.5 H Magnesium 2.6 H 07/16/16 07/16/16 15:40 16:12 WBC RBC Hgb Hct MCV MCH MCHC RDW Plt Count MPV Gran % Lymph % (Auto) [place] % (Auto) Eos % (Auto) Baso % (Auto) Gran # Lymph # [place] # Eos # Baso # APTT 61.8 H Sodium 133 Potassium 4.8 Chloride 97 L Carbon Dioxide 26 Anion Gap 15 BUN 54 H Creatinine 2.0 H Est GFR ( Amer) 43 Est GFR (Non-Af Amer) 35 POC Glucose (mg/dL) 116 H Random Glucose 111 H Calcium 9.1 Phosphorus Magnesium Assessment & Plan - Assessment and Plan (Free Text) Assessment: This is a 51M who is POD9 (07/07) emergent decompressive laminectomy T2-4 with residual neuogenic bladder and neurogenic parlystic ileus. VSS Hold Opiates Serial abdominal exams Closely monitor and replenish electrolytes as needed. NGT to suction Continue medical management per primary team D/W Dr. Dexter Shah PGY-1
--- NOTE | 2016-07-16 17:54 | CP.PCM.PN ---
<Keri Guzman - Last Filed: 07/16/16 17:45> Subjective - Date & Time of Evaluation Date of Evaluation: 07/16/16 Time of Evaluation: 17:46 - Subjective Subjective: HOSPITALIST PROGRESS NOTE Pt is seen and examined. Pt vomited overnight after drinking water and again this morning after drinking milk. patient denies having any CP, SOB. Pt does have a cough that is nonproductive. Objective - Vital Signs/Intake and Output Vital Signs (last 24 hours): Temp Pulse Resp BP Pulse Ox 97.8 F 52 L 18 105/52 L 97 07/16/16 12:00 07/16/16 12:00 07/16/16 12:00 07/16/16 12:00 07/16/16 06:00 Intake and Output: 07/16/16 07/16/16 06:59 18:59 Intake Total 1124 300 Output Total 900 450 Balance 224 -150 - Medications Medications: Current Medications Albuterol/Ipratropium (Duoneb 3 Mg/0.5 Mg (3 Ml) Ud) 3 ml IH [id number] [facility] Last Admin: 07/16/16 13:27 Dose: Not Given Ascorbic Acid (Vitamin C 500 Mg Tab) 500 mg PO DAILY [facility] Last Admin: 07/16/16 09:41 Dose: 500 mg Bacitracin (Bacitracin) 1 ea TOP DAILY [facility] Last Admin: 07/16/16 13:19 Dose: 1 ea Bisacodyl (Dulcolax) 5 mg PO DAILY [facility] Last Admin: 07/16/16 09:41 Dose: 5 mg Guaifenesin (Mucinex La) 600 mg PO BID [facility] Last Admin: 07/16/16 09:41 Dose: 600 mg Hydralazine HCl (Apresoline) 10 mg IVP Q6 PRN PRN Reason: FOR SBP>170 & Diastolic>100 Ceftriaxone Sodium (Rocephin 2 Gm Ivpb) 100 mls @ 100 mls/hr IVPB Q12 DONAL PRN Reason: Protocol Stop: 08/08/16 10:01 Last Admin: 07/16/16 09:42 Dose: 100 mls/hr Heparin Sodium/Sodium Chloride (Heparin 30675 Units/250ml 1/2 Normal Saline) 250 mls @ 31.943 mls/hr IV .Q7H50M PRN; Protocol; 22.3 UNITS/KG/HR PRN Reason: ADJUST RATE PER PROTOCOL Last Titration: 07/16/16 15:15 Dose: 20.87 units/kg/hr Dextrose/Sodium Chloride (Dextrose 5%/0.9% Ns 1000 Ml) 1,000 mls @ 150 mls/hr IV .Q6H40M [facility] Last Admin: 07/16/16 17:38 Dose: 150 mls/hr Ketorolac Tromethamine (Toradol) 30 mg IVP Q6 PRN PRN Reason: Pain, moderate (4-7) Metoclopramide HCl (Reglan) 10 mg IVP Q6 [facility] Metoprolol Tartrate (Lopressor) 25 mg PO BID [facility] Last Admin: 07/16/16 09:40 Dose: 25 mg Multivitamins/Minerals (Therapeutic-M Tab) 1 tab PO DAILY [facility] Last Admin: 07/16/16 09:41 Dose: 1 tab Nicotine (Nicoderm Cq) 1 patch TD DAILY [facility] Last Admin: 07/16/16 15:05 Dose: 1 patch Ondansetron HCl (Zofran Inj) 4 mg IVP Q8H PRN PRN Reason: Nausea/Vomiting Last Admin: 07/16/16 02:02 Dose: 4 mg Pantoprazole Sodium (Protonix Inj) 40 mg IVP Q12 [facility] Last Admin: 07/16/16 09:40 Dose: 40 mg Petrolatum (Desitin Maximum Strength Topical 40% Oint) 0.1 gm TOP BID [facility] Last Admin: 07/16/16 09:39 Dose: 1 appl Polyethylene Glycol (Miralax) 17 gm PO BID [facility] Last Admin: 07/16/16 09:40 Dose: 17 gm Zinc Sulfate (Zinc Sulfate 220 Mg Cap) 220 mg PO DAILY [facility] Last Admin: 07/16/16 09:41 Dose: 220 mg - Labs Labs: 07/16/16 06:30 07/16/16 15:40 PT 10.8 Seconds (9.9-11.8) 07/09/16 21:30 INR 1.00 (0.93-1.08) 07/09/16 21:30 APTT 61.8 Seconds (23.7-30.8) H 07/16/16 15:40 - Constitutional Appears: Non-toxic, No Acute Distress - Head Exam Head Exam: ATRAUMATIC - ENT Exam ENT Exam: Mucous Membranes Moist - Respiratory Exam Respiratory Exam: Rhonchi. absent: Rales, Wheezes - Cardiovascular Exam Cardiovascular Exam: REGULAR RHYTHM, +S1, +S2 - GI/Abdominal Exam GI & Abdominal Exam: Distended, Firm. absent: Guarding, Rigid, Tenderness Additional comments: Right lower quad hematoma. right femoral sight: benign and no hematoma - Extremities Exam Extremities Exam: absent: Pedal Edema, Tenderness - Neurological Exam Neurological Exam: Alert, Awake, Oriented x3 - Psychiatric Exam Psychiatric exam: Normal Affect, Normal Mood - Skin Skin Exam: Dry, Intact, Normal Color, Warm Assessment and Plan - Assessment and Plan (Free Text) Assessment: 51 year old male with no significant past medical history is s/p T2-T4 lamenectomy POD #7 US of LE showed R LE DVT s/p IVC filter Plan: 1. Epidural space abscess s/p lamenectomy T2-T4 POD #7 -Wound cultures grew strep pneumo -Pathology is pending -Rocephine -Morphine -CT of chest/abd/pelvis is negative for malignancy -ID is consulted -MRI c/ and w/o contrast on 410 prior to procedure showed fluid collection in ventral epidural space from T1-T5 with cord compression and obliteration of subarachinoid space; abnormal signal in T3&T4 which may represent osteomyelitis vs. metastatic dz; no disc herniation, spinal canal stenosis or neuroforaminal narrowing. Lumbar spine MRI was negative for cauda equina. Please see full reports for details. 2. Paralysis in LE - Will continue to monitor. - Aggressive PT/OT - boots are in place and pt is being turned to prevent stress ulcers 3. Neurogenic bowel vs. ileus - Pt is not having any bowel movements even after aggressive bowel regimen. NG tube reinserted. CXR is pending to see placement. - Will order CT of abd without PO or IV contrast for left lower quad hematoma - GI is consulted. No plan for EGD at this time as he coded during last attempt - Heme occult was positive for blood. Will continue to monitor Hgb. - Reglan 10 mg IV ACHS, Miralax, Dulcolax - Abd xray yesterday shows ileus 5. Neurogenic bladder - Haque in place - Urology is consulted suprapubic catherization outpatient basis. 6. R LE DVT - IVC filter placed - Pt is on heparin drip and closely monitored for bleeding - Awaiting Dr. Wong's recs about starting pt on coumadin - Heme/onc is consulted - 07/06 US of LE showed thrombus in right common and proximal femoral vein 7. CP R/O ACS - Cardio is consulted - Echo showed EF of 63.5%, normal LV, trace AR, MR and TR - Hgb A1c is 6.3 8. Iron deficiency anemia - Will cont to monitor at this time. H&H is stable - Iron 35 (low), TIBC 325 (normal), Ferritin 11 (low), Vit B12 327 (Normal), folate 7.8 (normal) 9. pressure ulcer on Right gluteal region - air mattress - continue to reposition q2 - multivit, zinv, vitamin C PO ordered - Wound care pending 10. LOLA - Pts Cr went from 0.9 yesterday to 2.5. Rechecked labs and Cr was 2.0 - Haque checked for blockage and it is working fine - Lisinopril is put on hold - Manager Financial, Dr. Buckner is consulted 10. Prophylaxis - Protonix - heparin drip Dispo: Pt uninsured. Not eligible for rehab facility. Not qualify for [facility] bc of income above $[phone] Case discussed with attending, Dr. Tutu Marc <Tutu Marc - Last Filed: 07/21/16 17:04> Objective - Vital Signs/Intake and Output Vital Signs (last 24 hours): Temp Pulse Resp BP Pulse Ox 98.3 F 55 L 19 135/90 97 07/21/16 12:00 07/21/16 14:00 07/21/16 12:00 07/21/16 12:00 07/21/16 06:00 Intake and Output: 07/21/16 07/21/16 06:59 18:59 Intake Total 2092 900 Output Total 2300 1000 Balance -208 -100 - Medications Medications: Current Medications Albuterol/Ipratropium (Duoneb 3 Mg/0.5 Mg (3 Ml) Ud) 3 ml IH [id number] [facility] Last Admin: 07/21/16 16:38 Dose: 3 ml Ascorbic Acid (Vitamin C 500 Mg Tab) 500 mg PO DAILY [facility] Last Admin: 07/21/16 09:39 Dose: 500 mg Bacitracin (Bacitracin) 1 ea TOP DAILY [facility] Last Admin: 07/21/16 09:38 Dose: 1 ea Bisacodyl (Dulcolax) 10 mg RC DAILY [facility] Last Admin: 07/21/16 10:48 Dose: Not Given Bisacodyl (Dulcolax) 10 mg RC Q8H PRN PRN Reason: Constipation Hydralazine HCl (Apresoline) 10 mg IVP Q6 PRN PRN Reason: FOR SBP>170 & Diastolic>100 Ceftriaxone Sodium (Rocephin 2 Gm Ivpb) 100 mls @ 100 mls/hr IVPB Q12 DONAL PRN Reason: Protocol Stop: 08/08/16 10:01 Last Admin: 07/21/16 09:39 Dose: 100 mls/hr Dextrose/Sodium Chloride (Dextrose 5%/0.9% Ns 1000 Ml) 1,000 mls @ 100 mls/hr IV .Q10H [facility] Last Admin: 07/21/16 11:37 Dose: 100 mls/hr Heparin Sodium/Sodium Chloride (Heparin 04306 Units/250ml 1/2 Normal Saline) 250 mls @ 24.351 mls/hr IV .[id number] PRN; Protocol; 17 UNITS/KG/HR PRN Reason: ADJUST RATE PER PROTOCOL Last Admin: 07/21/16 11:36 Dose: 24.3 mls/hr Metoclopramide HCl (Reglan) 10 mg IVP Q6 [facility] Last Admin: 07/21/16 12:58 Dose: Not Given Metoprolol Tartrate (Lopressor) 25 mg PO BID [facility] Last Admin: 07/21/16 09:43 Dose: 25 mg Multivitamins/Minerals (Therapeutic-M Tab) 1 tab PO DAILY [facility] Last Admin: 07/21/16 09:39 Dose: 1 tab Nicotine (Nicoderm Cq) 1 patch TD DAILY [facility] Last Admin: 07/21/16 09:43 Dose: 1 patch Ondansetron HCl (Zofran Inj) 4 mg IVP Q8H PRN PRN Reason: Nausea/Vomiting Last Admin: 07/16/16 02:02 Dose: 4 mg Pantoprazole Sodium (Protonix Inj) 40 mg IVP Q12 [facility] Last Admin: 07/21/16 09:37 Dose: 40 mg Petrolatum (Desitin Maximum Strength Topical 40% Oint) 0.1 gm TOP BID [facility] Last Admin: 07/21/16 09:39 Dose: 1 appl Tramadol HCl (Ultram) 50 mg PO TID PRN PRN Reason: Pain, severe (8-10) Last Admin: 07/21/16 09:46 Dose: 50 mg Zinc Sulfate (Zinc Sulfate 220 Mg Cap) 220 mg PO DAILY [facility] Last Admin: 07/21/16 09:39 Dose: 220 mg - Labs Labs: 07/21/16 07:30 07/21/16 07:30 PT 10.8 Seconds (9.9-11.8) 07/09/16 21:30 INR 1.00 (0.93-1.08) 07/09/16 21:30 APTT 70.4 Seconds (23.7-30.8) H* 07/21/16 07:30 Attending/Attestation - Attestation I have personally seen and examined this patient.: Yes I have fully participated in the care of the patient.: Yes I have reviewed all pertinent clinical information, including history, physical exam and plan: Yes Notes (Text): I have seen and examined patient at bedside with the resident. This is a 51 year old male with history of substance abuse (snorts cocaine), tobacco, alcohol use who got admitted for evaluation of back pain and found to have epidural abscess T1-T5, osteomyelitis, urinary retention, acute RLE DVT. He underwent emergent laminectomy and epidural abscess was drained. Wound culture is growing strep pneumonia. He is on rocephin. Repeat Blood cultures are negative. HIV negative. pathology showed bone fragments and bone marrow. No evidence of carcinoma. He has no Significant improvement in sensory or motor function. Need aggressive PT. He has abdominal distention and partial bowel obstruction. Patient was made NPO and NGT was placed today. GI and surgery evaluation appreciated. During his stay, patient was taken to EGD for evaluation of gastric distention and he coded after anesthesia. He got extubated few days ago. FOBT positive. Patient has paralytic ileus. Continue PPI and reglan.abdominal distention and partial bowel obstruction; Continue NG tube.placed yesterday. GI and surgery evaluation appreciated. He has been on heparin drip for acute RLE DVT and is s/p IVC filter. Eliquis could not be arranged. Will Start Coumadin once active issues are resolved. CT chest, abdomen and pelvis negative. He has haque catheter for neurogenic bladder. Urology consult appreciated. No plan as of yet for suprapubic catheterization. Psych consult appreciated. Acute renal failure resolved. He was also found to have stage 1 pressure ulcer on right gluteal area. Will continue air mattress, mvi, zinc, vitamin c, zinc and continue to reposition q2 hours. follow up with Wound care. layup worker assisting the family with medicaid application. Dr Tutu Marc
--- NOTE | 2016-07-16 20:11 | CT ---
EXAM: CT Abdomen and Pelvis Without Intravenous Contrast CLINICAL HISTORY: 51 years old, male; Pain; Abdominal pain; Generalized; Additional info: Abd hematoma TECHNIQUE: Axial computed tomography images of the abdomen and pelvis without intravenous contrast. Coronal and sagittal reformatted images were created and reviewed. EXAM DATE/TIME: 07/16/2016 5:41 PM COMPARISON: Prior CT abdomen and pelvis of 07/10/2016 FINDINGS: LIMITATIONS: Exam is limited by motion artifact and streak artifact from the patient's arms. LOWER THORAX: No infiltrate seen in the lung bases. ABDOMEN: LIVER: No acute abnormality of the liver identified. GALLBLADDER AND BILE DUCTS: Multiple gallstones. No CT evidence of acute cholecystitis. PANCREAS: No CT evidence of acute pancreatitis. SPLEEN: No acute abnormality of the spleen identified. ADRENALS: No acute abnormality of the adrenal glands identified. KIDNEYS AND URETERS: No acute abnormality of the kidneys seen. No evidence of hydroureteronephrosis. STOMACH AND BOWEL: Findings suspicious for a partial small bowel obstruction. There are multiple fluid-filled and dilated small bowel loops visualized, a new finding compared to the prior study. There are normal caliber to mildly decompressed distal ileal small bowel loops seen. There is a suspected transition point seen, within a left pelvic small bowel loop, image 154 of series 2, where there appears to be a change in caliber of the small bowel, followed by multiple normal caliber to mildly decompressed small bowel loops. No definite mass is identified at the transition point. There is no evidence of focal enteritis of the transition point. An adhesive small bowel obstruction could have this appearance. Stomach is fluid-filled and mildly dilated. No evidence of significant colonic dilatation. APPENDIX: Appendix is seen, and is within normal limits in appearance. PELVIS: BLADDER: Catheter noted within the bladder lumen. REPRODUCTIVE: No acute abnormality of the reproductive organs is seen. ABDOMEN and PELVIS: INTRAPERITONEAL SPACE: Small amount of pelvic free fluid. No evidence of free air. BONES/JOINTS: No acute fractures or other acute bony abnormality noted. SOFT TISSUES: Small umbilical hernia again seen, containing fat and a small amount of fluid. VASCULATURE: IVC filter in place. LYMPH NODES: No evidence of diffuse lymphadenopathy. TUBES, LINES AND DEVICES: See above. Nasogastric tube in place, which terminates in the proximal stomach. IMPRESSION: - Findings suspicious for a partial small bowel obstruction. Please see above for a full description. - Small amount of pelvic free fluid. - See above for remaining findings.
[2016-07-16 20:57] LABS: URINE BILIRUBIN NEGATIVE (NEGATIVE); URINE BLOOD LARGE (NEGATIVE); URINE GLUCOSE (UA) NEGATIVE (NEGATIVE); URINE LEUKOCYTE ESTERASE NEGATIVE Leu/uL (NEGATIVE); URINE NITRATE NEGATIVE (NEGATIVE); URINE PROTEIN TRACE mg/dL (<30 mg/dL); URINE UROBILINOGEN 0.2 E.U./dL (<1 E.U./dL)
[2016-07-16 20:58] LABS: URINE APPEARANCE CLEAR (CLEAR); URINE COLOR YELLOW (YELLOW)
[2016-07-16 21:03] LABS: URINE EPITHELIAL CELLS 0 - 2 /hpf (0-5)
[2016-07-16 21:06] LABS: URINE BACTERIA MANY (NEG); URINE COARSE GRANULAR CAST TRACE /hpf (0-2); URINE HYALINE CAST 0 - 2 /hpf; URINE URIC ACID CRYSTALS FEW /hpf
[2016-07-16 21:07] LABS: URINE AMORPHOUS SEDIMENT FEW; URINE RBC 25 - 30 /hpf (0-2)
--- NOTE | 2016-07-16 21:21 | CP.PCM.CON ---
History of Present Illness - History of Present Illness History of Present Illness: 51 yo M w/ no significant pmh prior to current admission, presented with back pain and leg numbness/weakness, found to have epidural abcess and underwent T2- T4 laminectomy; also found to have RLE DVT for which he received IVC filter and put on heparin drip; hospital course complicated by brief cardiac arrest while undergoing general anesthesia for EGD; more recently has been having ileus with no BM but with sporadic flatulence, thought to be possibly due to neurogenic bowel; also with likely neurogenic bladder and with haque in place that was reportedly changed yesterday in the setting of decreased UO; nephrology being consulted for new onset of acute renal failure; Patient reports feeling well overall; complaining of back pain related to his surgical procedure; reports nausea but denies any vomiting; no BM as mentioned above, has not been given any enemas; Denies IVDA, only snorting of cocaine; drinks the equivalent of a 6 pack of beer daily; smokes 1 ppd cigarettes; Review of Systems - Constitutional Constitutional: absent: Chills, Fever - EENT Eyes: absent: Blurred Vision, Change in Vision Ears: absent: Decreased Hearing Nose/Mouth/Throat: Change in Voice Additional comments: throat irritation due to NG tube - Cardiovascular Cardiovascular: absent: Chest Pain, Palpitations - Respiratory Respiratory: Cough. absent: Dyspnea - Gastrointestinal Gastrointestinal: Nausea. absent: Abdominal Pain, Diarrhea - Genitourinary Additional comments: Haque in place, no irritation; - Musculoskeletal Musculoskeletal: Back Pain - Integumentary Integumentary: absent: Pruritus, Rash - Neurological Neurological: absent: Dizziness, Headaches - Hematologic/Lymphatic Hematologic: absent: Easy Bleeding Past Patient History - Past Social History Smoking Status: Heavy Smoker > 10 Cigarettes Daily Alcohol: > 2 Drinks/Day Drugs: Cocaine - CARDIAC Hx Cardiac Disorders: No - PULMONARY Hx Respiratory Disorders: No - HEMATOLOGICAL/ONCOLOGICAL Hx Blood Transfusions: (UNK) Hx Blood Transfusion Reaction: (UNK) - MUSCULOSKELETAL/RHEUMATOLOGICAL Hx Falls: No - PSYCHIATRIC Hx Substance Use: No - SURGICAL HISTORY Hx Surgeries: No - ANESTHESIA Hx Anesthesia Reactions: (UNK) Hx Malignant Hyperthermia: (UNK) Meds Allergies/Adverse Reactions: Allergies Allergy/AdvReac Type Severity Reaction Status Date / Time No Known Allergies Allergy Verified 07/06/16 16:07 - Medications Medications: Current Medications Albuterol/Ipratropium (Duoneb 3 Mg/0.5 Mg (3 Ml) Ud) 3 ml IH [id number] [facility] Last Admin: 07/16/16 20:02 Dose: Not Given Ascorbic Acid (Vitamin C 500 Mg Tab) 500 mg PO DAILY [facility] Last Admin: 07/16/16 09:41 Dose: 500 mg Bacitracin (Bacitracin) 1 ea TOP DAILY [facility] Last Admin: 07/16/16 13:19 Dose: 1 ea Bisacodyl (Dulcolax) 5 mg PO DAILY [facility] Last Admin: 07/16/16 09:41 Dose: 5 mg Guaifenesin (Mucinex La) 600 mg PO BID [facility] Last Admin: 07/16/16 18:18 Dose: 600 mg Hydralazine HCl (Apresoline) 10 mg IVP Q6 PRN PRN Reason: FOR SBP>170 & Diastolic>100 Ceftriaxone Sodium (Rocephin 2 Gm Ivpb) 100 mls @ 100 mls/hr IVPB Q12 DONAL PRN Reason: Protocol Stop: 08/08/16 10:01 Last Admin: 07/16/16 09:42 Dose: 100 mls/hr Heparin Sodium/Sodium Chloride (Heparin 84612 Units/250ml 1/2 Normal Saline) 250 mls @ 31.943 mls/hr IV .Q7H50M PRN; Protocol; 22.3 UNITS/KG/HR PRN Reason: ADJUST RATE PER PROTOCOL Last Titration: 07/16/16 15:15 Dose: 20.87 units/kg/hr Dextrose/Sodium Chloride (Dextrose 5%/0.9% Ns 1000 Ml) 1,000 mls @ 150 mls/hr IV .Q6H40M [facility] Last Admin: 07/16/16 17:38 Dose: 150 mls/hr Metoclopramide HCl (Reglan) 10 mg IVP Q6 [facility] Last Admin: 07/16/16 18:10 Dose: Not Given Metoprolol Tartrate (Lopressor) 25 mg PO BID [facility] Last Admin: 07/16/16 18:00 Dose: Not Given Multivitamins/Minerals (Therapeutic-M Tab) 1 tab PO DAILY [facility] Last Admin: 07/16/16 09:41 Dose: 1 tab Nicotine (Nicoderm Cq) 1 patch TD DAILY [facility] Last Admin: 04/19/17 15:05 Dose: 1 patch Ondansetron HCl (Zofran Inj) 4 mg IVP Q8H PRN PRN Reason: Nausea/Vomiting Last Admin: 07/16/16 02:02 Dose: 4 mg Pantoprazole Sodium (Protonix Inj) 40 mg IVP Q12 [facility] Last Admin: 07/16/16 09:40 Dose: 40 mg Petrolatum (Desitin Maximum Strength Topical 40% Oint) 0.1 gm TOP BID [facility] Last Admin: 07/16/16 18:18 Dose: 1 appl Polyethylene Glycol (Miralax) 17 gm PO BID [facility] Last Admin: 07/16/16 18:17 Dose: 17 gm Tramadol HCl (Ultram) 50 mg PO TID PRN PRN Reason: Pain, severe (8-10) Zinc Sulfate (Zinc Sulfate 220 Mg Cap) 220 mg PO DAILY [facility] Last Admin: 07/16/16 09:41 Dose: 220 mg Physical Exam - Constitutional Appears: Non-toxic, No Acute Distress - Head Exam Head Exam: ATRAUMATIC, NORMOCEPHALIC - Eye Exam Eye Exam: Normal appearance. absent: Scleral icterus - ENT Exam ENT Exam: Mucous Membranes Moist - Neck Exam Neck exam: Positive for: Normal Inspection. Negative for: Lymphadenopathy - Respiratory Exam Respiratory Exam: Clear to Auscultation Bilateral, NORMAL BREATHING PATTERN. absent: Rales, Rhonchi, Wheezes - Cardiovascular Exam Cardiovascular Exam: REGULAR RHYTHM, +S1, +S2 - GI/Abdominal Exam GI & Abdominal Exam: Distended, Hyperactive Bowel Sounds. absent: Tenderness - Exam Exam: absent: Scrotal Swelling, Bladder Distension - Neurological Exam Neurological exam: Alert, CN II-XII Intact Additional comments: Absent sensation in bilateral LE; 0/5 motor in bilateral LE; 5/5 in bilateral UE - Psychiatric Exam Psychiatric exam: Normal Affect, Normal Mood - Skin Skin Exam: Normal Color, Warm Results - Vital Signs Recent Vital Signs: Last Vital Signs Temp 97.8 F 07/16/16 12:00 Pulse 55 L 07/16/16 18:00 Resp 18 07/16/16 12:00 BP 105/52 L 07/16/16 12:00 Pulse Ox 97 07/16/16 06:00 - Labs Result Diagrams: 07/17/16 06:45 07/17/16 06:45 Labs: Laboratory Results - last 24 hr 07/15/16 07/16/16 07/16/16 21:14 06:30 07:26 WBC 12.9 H D RBC 3.65 Hgb 11.3 L Hct 33.6 L MCV 92.1 MCH 31.0 MCHC 33.6 RDW 14.0 Plt Count 266 MPV 12.4 H Gran % 80.0 H Lymph % (Auto) 8.7 L [place] % (Auto) 9.3 H Eos % (Auto) 1.8 Baso % (Auto) 0.2 Gran # 10.28 H Lymph # 1.1 L [place] # 1.2 H Eos # 0.2 Baso # 0.03 APTT 86.0 H* Sodium 135 Potassium 5.1 H Chloride 97 L Carbon Dioxide 27 Anion Gap 16 BUN 46 H Creatinine 2.5 H Est GFR ( Amer) 33 Est GFR (Non-Af Amer) 27 POC Glucose (mg/dL) 138 H 105 Random Glucose 113 H Calcium 9.1 Phosphorus 6.5 H Magnesium 2.6 H Urine Color Urine Appearance Urine pH Ur Specific [place] Urine Protein Urine Glucose (UA) Urine Ketones Urine Blood Urine Nitrate Urine Bilirubin Urine Urobilinogen Ur Leukocyte Esterase Urine RBC Urine WBC Ur Epithelial Cells Uric Acid Crystals Amorphous Sediment Urine Bacteria Hyaline Casts Coarse Granular Casts Urine Other 07/16/16 07/16/16 07/16/16 15:40 16:12 20:50 WBC RBC Hgb Hct MCV MCH MCHC RDW Plt Count MPV Gran % Lymph % (Auto) [place] % (Auto) Eos % (Auto) Baso % (Auto) Gran # Lymph # [place] # Eos # Baso # APTT 61.8 H Sodium 133 Potassium 4.8 Chloride 97 L Carbon Dioxide 26 Anion Gap 15 BUN 54 H Creatinine 2.0 H Est GFR ( Amer) 43 Est GFR (Non-Af Amer) 35 POC Glucose (mg/dL) 116 H Random Glucose 111 H Calcium 9.1 Phosphorus Magnesium Urine Color Yellow Urine Appearance Clear Urine pH 6.0 Ur Specific [place] 1.025 Urine Protein Trace H Urine Glucose (UA) Negative Urine Ketones Negative Urine Blood Large H Urine Nitrate Negative Urine Bilirubin Negative Urine Urobilinogen 0.2 Ur Leukocyte Esterase Negative Urine RBC 25 - 30 Urine WBC 1 - 3 Ur Epithelial Cells 0 - 2 Uric Acid Crystals Few Amorphous Sediment Few Urine Bacteria Many Hyaline Casts 0 - 2 Coarse Granular Casts Trace H Urine Other Uyeast - Impressions Impression: Urine Microscopy (directly observed) - >30 RBC's/hpf (none dysmorphic), no WBC's , granular casts present (0-3/10x field), occasional cellular cast (likely renal tubular epithelila cell cast), numerous uric acid crystals present Assessment & Plan (1) Acute renal failure Assessment and Plan: LOLA that appears to be resolving; urine microscopy showing some evidence of tubular injury although no nephrotoxic agents identified; patient did have some drops in BP that could have been contributory; however, most likely explanation for LOLA with sudden improvement is obstructive uropathy that was relieved with change in haque catheter; no hydonephrosis seen on CT today but could have already resolved; A much less likely possibility is cholesterol emboli causing LOLA which can occur spontaneously when receiving therapeutic anticoagulation, however, would expect atherosclerotic risk factors; also, would generally have bland urine, suggestive skin findings and would not recover this quickly; -avoid nephrotoxic agents (ketorolac discontinued) -monitor for post-obstructive diuresis (ok to continue D5NS at 100 cc/hr, but may need to switch to 1/2NS if hypernatremia ensues) -checking complements and urine eosinophils (for evidence of atheroemboli) Status: Acute (2) Epidural abscess Assessment and Plan: On ceftriaxone for Strep pneumo, no renal dose adjustment needed with this antibiotic; Status: Acute (3) HTN (hypertension) Assessment and Plan: Fluctuating BP but cannot make diagnosis of essential htn in this setting; has not been following with a physician so no previous history; would not treat sporadic increases in BP unless SBP consistently > 150; Status: Acute (4) Substance abuse Assessment and Plan: No IVDA history but admits to cocaine use; if any suspicion that patient will go back to using cocaine, should not be on B-johann due to resulting unopposed alpha adrenergic activity; Status: Acute (5) DVT (deep venous thrombosis) Assessment and Plan: On heparin drip for AC; if switching to lovenox or a NOAC, may need to consider decreased GFR; would hold off on such a change until renal function stable; Status: Acute
[2016-07-17] MEDS: Heparin25000 units/250ml 1/2NS 250 ML IV PRN ×3 (00:53→17:50)
[2016-07-17] MEDS: Dextrose 5%/0.9% NS 1,000 ML IV SCH ×5 (01:00→22:44)
[2016-07-17] MEDS: Albuterol-Ipratrop 3 mg / 0.5 (3 ml) UD IH SCH ×5 (02:52→19:36)
--- NOTE | 2016-07-17 04:58 | PCM.URO ---
Urology Progress Note - Objective Lab Results Last 24 Hours: Laboratory Results - last 24 hr 07/16/16 07/16/16 07/16/16 06:30 07:26 15:40 WBC 12.9 H D RBC 3.65 Hgb 11.3 L Hct 33.6 L MCV 92.1 MCH 31.0 MCHC 33.6 RDW 14.0 Plt Count 266 MPV 12.4 H Gran % 80.0 H Lymph % (Auto) 8.7 L [place] % (Auto) 9.3 H Eos % (Auto) 1.8 Baso % (Auto) 0.2 Gran # 10.28 H Lymph # 1.1 L [place] # 1.2 H Eos # 0.2 Baso # 0.03 APTT 86.0 H* 61.8 H Sodium 135 133 Potassium 5.1 H 4.8 Chloride 97 L 97 L Carbon Dioxide 27 26 Anion Gap 16 15 BUN 46 H 54 H Creatinine 2.5 H 2.0 H Est GFR ( Amer) 33 43 Est GFR (Non-Af Amer) 27 35 POC Glucose (mg/dL) 105 Random Glucose 113 H 111 H Calcium 9.1 9.1 Phosphorus 6.5 H Magnesium 2.6 H Urine Color Urine Appearance Urine pH Ur Specific [place] Urine Protein Urine Glucose (UA) Urine Ketones Urine Blood Urine Nitrate Urine Bilirubin Urine Urobilinogen Ur Leukocyte Esterase Urine RBC Urine WBC Ur Epithelial Cells Uric Acid Crystals Amorphous Sediment Urine Bacteria Hyaline Casts Coarse Granular Casts Urine Other Ur Random Creatinine 07/16/16 07/16/16 07/16/16 16:12 20:50 21:06 WBC RBC Hgb Hct MCV MCH MCHC RDW Plt Count MPV Gran % Lymph % (Auto) [place] % (Auto) Eos % (Auto) Baso % (Auto) Gran # Lymph # [place] # Eos # Baso # APTT Sodium Potassium Chloride Carbon Dioxide Anion Gap BUN Creatinine Est GFR ( Amer) Est GFR (Non-Af Amer) POC Glucose (mg/dL) 116 H 68 Random Glucose Calcium Phosphorus Magnesium Urine Color Yellow Urine Appearance Clear Urine pH 6.0 Ur Specific [place] 1.025 Urine Protein Trace H Urine Glucose (UA) Negative Urine Ketones Negative Urine Blood Large H Urine Nitrate Negative Urine Bilirubin Negative Urine Urobilinogen 0.2 Ur Leukocyte Esterase Negative Urine RBC 25 - 30 Urine WBC 1 - 3 Ur Epithelial Cells 0 - 2 Uric Acid Crystals Few Amorphous Sediment Few Urine Bacteria Many Hyaline Casts 0 - 2 Coarse Granular Casts Trace H Urine Other Uyeast Ur Random Creatinine 07/16/16 07/17/16 07/17/16 22:09 01:45 02:33 WBC RBC Hgb Hct MCV MCH MCHC RDW Plt Count MPV Gran % Lymph % (Auto) [place] % (Auto) Eos % (Auto) Baso % (Auto) Gran # Lymph # [place] # Eos # Baso # APTT 82.8 H* Sodium Potassium Chloride Carbon Dioxide Anion Gap BUN Creatinine Est GFR ( Amer) Est GFR (Non-Af Amer) POC Glucose (mg/dL) 83 Random Glucose Calcium Phosphorus Magnesium Urine Color Urine Appearance Urine pH Ur Specific [place] Urine Protein Urine Glucose (UA) Urine Ketones Urine Blood Urine Nitrate Urine Bilirubin Urine Urobilinogen Ur Leukocyte Esterase Urine RBC Urine WBC Ur Epithelial Cells Uric Acid Crystals Amorphous Sediment Urine Bacteria Hyaline Casts Coarse Granular Casts Urine Other Ur Random Creatinine 133 Intake & Output: Intake & Output 07/16/16 07/16/16 07/17/16 06:59 18:59 06:59 Intake Total 1124 300 Output Total 900 450 Balance 224 -150 Intake: IV 1004 0 Right Hand 1004 Oral 120 300 Output: Urine 900 450 Urethral ([place]) 900 450 Other: # Voids Urine, Voided 0 # Bowel Movements 0 Vital Signs: Vital Signs - 24 hr 07/16/16 07/16/16 07/16/16 05:35 06:00 09:40 Temperature 97.8 F Pulse Rate 54 L 60 60 Respiratory 22 Rate Blood Pressure 105/55 L 117/72 O2 Sat by Pulse 97 Oximetry 07/16/16 07/16/16 07/16/16 09:41 10:00 12:00 Temperature 97.8 F Pulse Rate 60 60 52 L Respiratory 18 Rate Blood Pressure 117/72 105/52 L O2 Sat by Pulse Oximetry 07/16/16 07/17/16 07/17/16 18:00 00:01 03:40 Temperature 97 F L Pulse Rate 55 L 58 L 58 L Respiratory 20 Rate Blood Pressure 112/40 L O2 Sat by Pulse 98 Oximetry
--- NOTE | 2016-07-17 07:20 | CP.PCM.PN ---
<Savannah Thornton - Last Filed: 07/17/16 08:51> Subjective - Date & Time of Evaluation Date of Evaluation: 07/17/16 Time of Evaluation: 07:14 - Subjective Subjective: Gastroenterology Fellow/PGY4 Progress Note Multiple episodes of vomiting leading to replacement of NG tube. 350cc of NG output overnight. No bowel movement yesterday. A 12-point review of systems negative except for as above. Objective - Vital Signs/Intake and Output Vital Signs (last 24 hours): Temp Pulse Resp BP Pulse Ox 97 F L 58 L 20 112/40 L 98 07/17/16 00:01 07/17/16 03:40 07/17/16 00:01 07/17/16 00:01 07/17/16 00:01 Intake and Output: 07/17/16 07/17/16 06:59 18:59 Output Total 650 Balance -650 - Medications Medications: Current Medications Albuterol/Ipratropium (Duoneb 3 Mg/0.5 Mg (3 Ml) Ud) 3 ml IH [id number] [facility] Last Admin: 07/17/16 03:55 Dose: 3 ml Ascorbic Acid (Vitamin C 500 Mg Tab) 500 mg PO DAILY [facility] Last Admin: 07/16/16 09:41 Dose: 500 mg Bacitracin (Bacitracin) 1 ea TOP DAILY [facility] Last Admin: 07/16/16 13:19 Dose: 1 ea Bisacodyl (Dulcolax) 5 mg PO DAILY [facility] Last Admin: 07/16/16 09:41 Dose: 5 mg Guaifenesin (Mucinex La) 600 mg PO BID [facility] Last Admin: 07/16/16 18:18 Dose: 600 mg Hydralazine HCl (Apresoline) 10 mg IVP Q6 PRN PRN Reason: FOR SBP>170 & Diastolic>100 Ceftriaxone Sodium (Rocephin 2 Gm Ivpb) 100 mls @ 100 mls/hr IVPB Q12 DONAL PRN Reason: Protocol Stop: 08/08/16 10:01 Last Admin: 07/16/16 22:43 Dose: 100 mls/hr Heparin Sodium/Sodium Chloride (Heparin 01552 Units/250ml 1/2 Normal Saline) 250 mls @ 31.943 mls/hr IV .Q7H50M PRN; Protocol; 22.3 UNITS/KG/HR PRN Reason: ADJUST RATE PER PROTOCOL Last Admin: 07/17/16 00:53 Dose: 27.03 mls/hr Dextrose/Sodium Chloride (Dextrose 5%/0.9% Ns 1000 Ml) 1,000 mls @ 150 mls/hr IV .Q6H40M [facility] Last Admin: 07/17/16 01:00 Dose: 150 mls/hr Metoclopramide HCl (Reglan) 10 mg IVP Q6 [facility] Last Admin: 07/17/16 06:14 Dose: 10 mg Metoprolol Tartrate (Lopressor) 25 mg PO BID [facility] Last Admin: 07/16/16 18:00 Dose: Not Given Multivitamins/Minerals (Therapeutic-M Tab) 1 tab PO DAILY [facility] Last Admin: 07/16/16 09:41 Dose: 1 tab Nicotine (Nicoderm Cq) 1 patch TD DAILY [facility] Last Admin: 07/16/16 15:05 Dose: 1 patch Ondansetron HCl (Zofran Inj) 4 mg IVP Q8H PRN PRN Reason: Nausea/Vomiting Last Admin: 07/16/16 02:02 Dose: 4 mg Pantoprazole Sodium (Protonix Inj) 40 mg IVP Q12 [facility] Last Admin: 07/16/16 22:43 Dose: 40 mg Petrolatum (Desitin Maximum Strength Topical 40% Oint) 0.1 gm TOP BID [facility] Last Admin: 07/16/16 18:18 Dose: 1 appl Polyethylene Glycol (Miralax) 17 gm PO BID [facility] Last Admin: 07/16/16 18:17 Dose: 17 gm Tramadol HCl (Ultram) 50 mg PO TID PRN PRN Reason: Pain, severe (8-10) Last Admin: 07/17/16 06:15 Dose: 50 mg Zinc Sulfate (Zinc Sulfate 220 Mg Cap) 220 mg PO DAILY [facility] Last Admin: 07/16/16 09:41 Dose: 220 mg - Labs Labs: 07/16/16 06:30 07/16/16 15:40 PT 10.8 Seconds (9.9-11.8) 07/09/16 21:30 INR 1.00 (0.93-1.08) 07/09/16 21:30 APTT 82.8 Seconds (23.7-30.8) H* 07/16/16 22:09 - Constitutional Appears: Non-toxic, No Acute Distress - Head Exam Head Exam: ATRAUMATIC, NORMOCEPHALIC - Eye Exam Eye Exam: EOMI, PERRL Pupil Exam: PERRL. absent: Miosis, Mydriatic - ENT Exam ENT Exam: Mucous Membranes Moist, Normal Oropharynx - Neck Exam Neck Exam: Full ROM, Normal Inspection - Respiratory Exam Respiratory Exam: Clear to Ausculation Bilateral. absent: Rales, Rhonchi, Wheezes - Cardiovascular Exam Cardiovascular Exam: RRR, +S1, +S2. absent: Gallop, Rubs - GI/Abdominal Exam GI & Abdominal Exam: Distended, Firm, Hypoactive Bowel Sounds. absent: Guarding , Rigid, Tenderness, Organomegaly, Rebound Additional comments: RLQ eechymosis - Extremities Exam Extremities Exam: Normal Inspection. absent: Pedal Edema - Neurological Exam Neurological Exam: Alert, Awake, Motor Sensory Deficit - Psychiatric Exam Psychiatric exam: Normal Affect, Normal Mood - Skin Skin Exam: Dry, Intact, Normal Color, Warm Assessment and Plan - Assessment and Plan (Free Text) Assessment: 51 year old male with history of polysubstance abuse presenting with chest and back pain. Developed bilateral lower extremities motor/sensory deficit complicated by urinary incontinence. 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 Repeat CT A/P (07/10) showing marked improvement in paralytic ileus. 07/09 ventilator dependent respiratory failure 2/2 cardiopulmonary arrest s/p ROSC during jose manuel-procedural intubation for endoscopy. No prior EGD or colonoscopy. Plan: >CT A/P- partial SBO >NG tube replaced yesterday >NPO >continue Reglan IV Q6H >PPI BID >surgery following -appreciate recommendations >on Heparin drip-RLE DVT >monitor H/H >will continue to follow <Ld Moses - Last Filed: 07/17/16 09:56> Objective - Vital Signs/Intake and Output Vital Signs (last 24 hours): Temp Pulse Resp BP Pulse Ox 97 F L 58 L 20 112/40 L 98 07/17/16 00:01 07/17/16 03:40 07/17/16 00:01 07/17/16 00:01 07/17/16 00:01 Intake and Output: 07/17/16 07/17/16 06:59 18:59 Intake Total 3580 Output Total 1800 Balance 1780 - Medications Medications: Current Medications Albuterol/Ipratropium (Duoneb 3 Mg/0.5 Mg (3 Ml) Ud) 3 ml IH [id number] [facility] Last Admin: 07/17/16 08:08 Dose: 3 ml Ascorbic Acid (Vitamin C 500 Mg Tab) 500 mg PO DAILY [facility] Last Admin: 07/16/16 09:41 Dose: 500 mg Bacitracin (Bacitracin) 1 ea TOP DAILY [facility] Last Admin: 07/16/16 13:19 Dose: 1 ea Bisacodyl (Dulcolax) 10 mg RC DAILY [facility] Guaifenesin (Mucinex La) 600 mg PO BID [facility] Last Admin: 07/16/16 18:18 Dose: 600 mg Hydralazine HCl (Apresoline) 10 mg IVP Q6 PRN PRN Reason: FOR SBP>170 & Diastolic>100 Ceftriaxone Sodium (Rocephin 2 Gm Ivpb) 100 mls @ 100 mls/hr IVPB Q12 DONAL PRN Reason: Protocol Stop: 08/08/16 10:01 Last Admin: 07/16/16 22:43 Dose: 100 mls/hr Heparin Sodium/Sodium Chloride (Heparin 29521 Units/250ml 1/2 Normal Saline) 250 mls @ 31.943 mls/hr IV .Q7H50M PRN; Protocol; 22.3 UNITS/KG/HR PRN Reason: ADJUST RATE PER PROTOCOL Last Admin: 07/17/16 00:53 Dose: 27.03 mls/hr Dextrose/Sodium Chloride (Dextrose 5%/0.9% Ns 1000 Ml) 1,000 mls @ 150 mls/hr IV .Q6H40M [facility] Last Admin: 07/17/16 01:00 Dose: 150 mls/hr Magnesium Sulfate/Dextrose (Magnesium Sulfate 1 Gm/100 Ml D5w) 100 mls @ 100 mls/hr IVPB ONCE ONE Stop: 07/17/16 10:49 Metoclopramide HCl (Reglan) 10 mg IVP Q6 [facility] Last Admin: 07/17/16 06:14 Dose: 10 mg Metoprolol Tartrate (Lopressor) 25 mg PO BID [facility] Last Admin: 07/16/16 18:00 Dose: Not Given Multivitamins/Minerals (Therapeutic-M Tab) 1 tab PO DAILY [facility] Last Admin: 07/16/16 09:41 Dose: 1 tab Nicotine (Nicoderm Cq) 1 patch TD DAILY [facility] Last Admin: 07/16/16 15:05 Dose: 1 patch Ondansetron HCl (Zofran Inj) 4 mg IVP Q8H PRN PRN Reason: Nausea/Vomiting Last Admin: 07/16/16 02:02 Dose: 4 mg Pantoprazole Sodium (Protonix Inj) 40 mg IVP Q12 [facility] Last Admin: 07/16/16 22:43 Dose: 40 mg Petrolatum (Desitin Maximum Strength Topical 40% Oint) 0.1 gm TOP BID [facility] Last Admin: 07/16/16 18:18 Dose: 1 appl Tramadol HCl (Ultram) 50 mg PO TID PRN PRN Reason: Pain, severe (8-10) Last Admin: 07/17/16 06:15 Dose: 50 mg Zinc Sulfate (Zinc Sulfate 220 Mg Cap) 220 mg PO DAILY [facility] Last Admin: 07/16/16 09:41 Dose: 220 mg - Labs Labs: 07/17/16 06:45 07/17/16 06:45 PT 10.8 Seconds (9.9-11.8) 07/09/16 21:30 INR 1.00 (0.93-1.08) 07/09/16 21:30 APTT 63.9 Seconds (23.7-30.8) H 07/17/16 06:45 Attending/Attestation - Attestation I have personally seen and examined this patient.: Yes I have fully participated in the care of the patient.: Yes I have reviewed all pertinent clinical information, including history, physical exam and plan: Yes Notes (Text): 07/17/16 09:54 51 year old male with history of polysubstance abuse, admitted with epidural abscess s/p laminectomy, hospital course complicated by SBO now. 1. Small bowel obstruction Plan: -reviewed CT images, apparent SBO with transition in the TI -obstruction appears partial -recommend surgical evaluation -recommend conservative therapy including bowel rest, NG decmpression, IV hydration, and prokinetics as above
[2016-07-17 07:26] LABS: BASO # 0.03 K/mm3 (0.0-2.0); BASO % 0.4 % (0.0-3.0); EOS # 0.2 (0.0-0.7); EOS % 2.7 % (1.5-5.0); GRAN # 6.18 (1.4-6.5); GRAN % 73.7 % (50.0-68.0); HEMOGLOBIN 10.6 gm/dL (14.0-18.0); LYMPH # 1.1 (1.2-3.4); LYMPH % 13.3 % (22.0-35.0); MEAN CELL VOLUME 92.2 fL (80.0-105.0); MEAN CORPUSCULAR HEMOGLOBIN 30.5 pg (25.0-35.0); MEAN PLATELET VOLUME 12.4 fl (7.0-11.0); MONO # 0.8 (0.1-0.6); MONO % 9.9 % (1.0-6.0); PLATELET COUNT 218 10^3/uL (120.0-450.0); RBC 3.48 10^6/uL (3.5-6.1); WHITE BLOOD COUNT 8.4 10^3/ul (4.5-11.0)
[2016-07-17 07:57] LABS: ALB/GLOB RATIO 0.8 (1.1-1.8); ALBUMIN 3.2 g/dL (3.0-4.8); ALT/SGPT 59 U/L (7-56); AST/SGOT 37 U/L (15-59); BLOOD UREA NITROGEN 40 mg/dL (7-21); CALCIUM 8.5 mg/dL (8.4-10.5); GFR AFRICAN-AMERICAN > 60; GFR NON-AFRICAN AMERICAN > 60; MAGNESIUM 2.5 mg/dL (1.7-2.2); URIC ACID 5.9 mg/dL (3.5-8.5)
--- NOTE | 2016-07-17 08:34 | RAD ---
HISTORY: NG tube placement COMPARISON: No prior. FINDINGS: LUNGS: No active pulmonary disease. PLEURA: No significant pleural effusion identified, no pneumothorax apparent. CARDIOVASCULAR: Normal. OSSEOUS STRUCTURES: No significant abnormalities. VISUALIZED UPPER ABDOMEN: NG tube in satisfactory position OTHER FINDINGS: None. IMPRESSION: NG tube in satisfactory position
[2016-07-17] MEDS: Multivitamin With Minerals Tab PO SCH (11:39)
[2016-07-17] MEDS: guaiFENesin 600 mg ER Tab PO SCH (11:40)
[2016-07-17] MEDS: Zinc Oxide Topical 40% Oint (Desitin) TOP SCH ×2 (11:41→18:17)
[2016-07-17] MEDS: Bacitracin 500 Units/gm Oint Foilpak UD TOP SCH (11:41)
--- NOTE | 2016-07-17 12:04 | PN ---
DATE: 07/17/2016 REASON FOR CONSULTATION AND FOLLOWUP: Status post spinal abscess, DVT, status post CPR, status post intubated, now successfully extubated, nausea, vomiting, distended abdomen, paralysis of both lower e xtremities. BRIEF CLINICAL HISTORY: This is a 51-year-old male admitted with a 1-week history of chest pain radi ating from back which was found to be related to a spinal abscess. Also found DVT of the right lower extremity. The patient underwent a spinal abscess drainage, on heparin. Needs endoscopy. Intubati on was difficult, requiring CPR, intubated and successfully extubated, now patient is on the floor th is morning. Yesterday started nausea, vomiting, requiring NG tube and suction, and distention of the belly. He is still complaining of paralysis of both lower extremities, inability to move both lower legs ____. Denies any chest pain, shortness of breath, any palpitation. PHYSICAL EXAMINATION: VITAL SIGNS: Temperature afebrile, heart rate 55, blood pressure 112/40. HEENT: PERRLA. Extraocular muscles intact. NECK: Supple. No carotid bruits. No thyromegaly. CHEST: Clear to auscultation. HEART: S1, S2 regular. ABDOMEN: Soft. EXTREMITIES: Clubbing, cyanosis negative. BLOOD WORKUP: WBC 8.4, hemoglobin 10.7, hematocrit 32.1, platelet count 218. Chemistry shows sodium 135, potassium 4.5, chloride 102, carbon dioxide 27, anion gap of 11, BUN 40, creatinine 1.0. IMPRESSION: Abdominal distention, nausea and vomiting requiring nasogastric tube tube placement, par alysis of lower extremity, status post abscess drainage, deep venous thrombosis of right lower extrem ity, status post cardiopulmonary resuscitation, status post intubated, now successfully extubated. M ost recent echocardiography showed ejection fraction 55-60%, normal chamber size, normal wall thickne ss, trace aortic regurgitation, trace mitral regurgitation, trace tricuspid regurgitation. RECOMMENDATION: Continue IV heparin. ____ Coumadin. The patient has nausea, vomiting and distentio n. Will ____ Coumadin. Continue IV Lasix. Yesterday creatinine jumped to 2. Lisinopril was discon tinued, IV hydration given, creatinine back to 1. Pressure is okay. If remains elevated ____ hydral azine or calcium channel johann. Avoid DELMIS inhibitor. Monitor with GI. Monitor with neurology. C V status is stable. Will follow with you. Thank you, Dr. Tutu Marc, for providing the opportunity in taking care of the patient. The patient has a history of substance abuse, cocaine was positive in urine tox screen on admission d ated 07/07/2016. Jarrod Barbour MD cc: [id number] TT: 07/17/2016 11:29:58 Confirmation # [id number] Dictation # [id number] mn 07/17/2016 11:03:01
[2016-07-17 12:45] LABS: COMPLEMENT C4 55.9 mg/dL (14.0-44.0)
--- NOTE | 2016-07-17 13:45 | CP.PCM.PN ---
Subjective - Date & Time of Evaluation Date of Evaluation: 07/17/16 Time of Evaluation: 09:42 - Subjective Subjective: General Surgery Progress Note for Dr. Renteria This 51M was seen and examined this AM at bedside. He reports no acute events overnight. Yesterday evening NGT was placed which immediately put out 350 ml bilious output. Patient denies any abdominal pain, chest pain, fevers chills, chest pain, nausea, vomiting. Objective - Vital Signs/Intake and Output Vital Signs (last 24 hours): Temp Pulse Resp BP Pulse Ox 99.9 F H 80 18 109/67 98 07/17/16 12:00 07/17/16 12:00 07/17/16 12:00 07/17/16 12:00 07/17/16 00:01 Intake and Output: 07/17/16 07/17/16 06:59 18:59 Intake Total 3580 Output Total 1800 Balance 1780 - Medications Medications: Current Medications Albuterol/Ipratropium (Duoneb 3 Mg/0.5 Mg (3 Ml) Ud) 3 ml IH [id number] [facility] Last Admin: 07/17/16 13:23 Dose: 3 ml Ascorbic Acid (Vitamin C 500 Mg Tab) 500 mg PO DAILY [facility] Last Admin: 07/17/16 11:40 Dose: 500 mg Bacitracin (Bacitracin) 1 ea TOP DAILY [facility] Last Admin: 07/17/16 11:41 Dose: 1 ea Bisacodyl (Dulcolax) 10 mg RC DAILY [facility] Last Admin: 07/17/16 11:36 Dose: 10 mg Guaifenesin (Mucinex La) 600 mg PO BID [facility] Last Admin: 07/17/16 11:40 Dose: 600 mg Hydralazine HCl (Apresoline) 10 mg IVP Q6 PRN PRN Reason: FOR SBP>170 & Diastolic>100 Ceftriaxone Sodium (Rocephin 2 Gm Ivpb) 100 mls @ 100 mls/hr IVPB Q12 [facility] PRN Reason: Protocol Stop: 08/08/16 10:01 Last Admin: 07/17/16 10:56 Dose: 100 mls/hr Heparin Sodium/Sodium Chloride (Heparin 57866 Units/250ml 1/2 Normal Saline) 250 mls @ 31.943 mls/hr IV .Q7H50M PRN; Protocol; 22.3 UNITS/KG/HR PRN Reason: ADJUST RATE PER PROTOCOL Last Admin: 07/17/16 10:53 Dose: 27.03 mls/hr Dextrose/Sodium Chloride (Dextrose 5%/0.9% Ns 1000 Ml) 1,000 mls @ 150 mls/hr IV .Q6H40M [facility] Last Admin: 07/17/16 11:35 Dose: 150 mls/hr Metoclopramide HCl (Reglan) 10 mg IVP Q6 [facility] Last Admin: 07/17/16 11:39 Dose: 10 mg Metoprolol Tartrate (Lopressor) 25 mg PO BID [facility] Last Admin: 07/17/16 11:45 Dose: 25 mg Multivitamins/Minerals (Therapeutic-M Tab) 1 tab PO DAILY [facility] Last Admin: 07/17/16 11:39 Dose: 1 tab Nicotine (Nicoderm Cq) 1 patch TD DAILY [facility] Last Admin: 07/17/16 11:39 Dose: 1 patch Ondansetron HCl (Zofran Inj) 4 mg IVP Q8H PRN PRN Reason: Nausea/Vomiting Last Admin: 07/16/16 02:02 Dose: 4 mg Pantoprazole Sodium (Protonix Inj) 40 mg IVP Q12 [facility] Last Admin: 07/17/16 11:40 Dose: 40 mg Petrolatum (Desitin Maximum Strength Topical 40% Oint) 0.1 gm TOP BID [facility] Last Admin: 07/17/16 11:41 Dose: 1 appl Tramadol HCl (Ultram) 50 mg PO TID PRN PRN Reason: Pain, severe (8-10) Last Admin: 07/17/16 12:27 Dose: 50 mg Zinc Sulfate (Zinc Sulfate 220 Mg Cap) 220 mg PO DAILY [facility] Last Admin: 07/17/16 11:39 Dose: 220 mg - Labs Labs: 07/17/16 06:45 07/17/16 06:45 PT 10.8 Seconds (9.9-11.8) 07/09/16 21:30 INR 1.00 (0.93-1.08) 07/09/16 21:30 APTT 70.7 Seconds (23.7-30.8) H* 07/17/16 12:45 - Constitutional Appears: Non-toxic, No Acute Distress - Head Exam Head Exam: ATRAUMATIC, NORMOCEPHALIC - Eye Exam Eye Exam: EOMI, Normal appearance - ENT Exam ENT Exam: Mucous Membranes Moist, Normal Exam - Respiratory Exam Respiratory Exam: NORMAL BREATHING PATTERN - Cardiovascular Exam Cardiovascular Exam: +S1, +S2 - GI/Abdominal Exam GI & Abdominal Exam: Distended, Hernia. absent: Guarding, Tenderness - Neurological Exam Neurological Exam: Alert, Awake - Psychiatric Exam Psychiatric exam: Normal Affect, Normal Mood - Skin Skin Exam: Dry, Intact
--- NOTE | 2016-07-17 14:04 | CP.PCM.PN ---
<Keri Guzman - Last Filed: 07/17/16 14:10> Subjective - Date & Time of Evaluation Date of Evaluation: 07/17/16 Time of Evaluation: 14:01 - Subjective Subjective: HOSPITALIST PROGRESS NOTE Pt is seen and examined at bedside. Haque changed yesterday. NG tube placed yesterday drinaing about 400 cc of greenish fluid. NO other acute events overnight. No BM overnight. Denies having any CP or SOB. Objective - Vital Signs/Intake and Output Vital Signs (last 24 hours): Temp Pulse Resp BP Pulse Ox 99.9 F H 80 18 109/67 98 07/17/16 12:00 07/17/16 12:00 07/17/16 12:00 07/17/16 12:00 07/17/16 00:01 Intake and Output: 07/17/16 07/17/16 06:59 18:59 Intake Total 3580 Output Total 1800 Balance 1780 - Medications Medications: Current Medications Albuterol/Ipratropium (Duoneb 3 Mg/0.5 Mg (3 Ml) Ud) 3 ml IH [id number] [facility] Last Admin: 07/17/16 13:23 Dose: 3 ml Ascorbic Acid (Vitamin C 500 Mg Tab) 500 mg PO DAILY [facility] Last Admin: 07/17/16 11:40 Dose: 500 mg Bacitracin (Bacitracin) 1 ea TOP DAILY [facility] Last Admin: 07/17/16 11:41 Dose: 1 ea Bisacodyl (Dulcolax) 10 mg RC DAILY [facility] Last Admin: 07/17/16 11:36 Dose: 10 mg Guaifenesin (Mucinex La) 600 mg PO BID [facility] Last Admin: 07/17/16 11:40 Dose: 600 mg Hydralazine HCl (Apresoline) 10 mg IVP Q6 PRN PRN Reason: FOR SBP>170 & Diastolic>100 Ceftriaxone Sodium (Rocephin 2 Gm Ivpb) 100 mls @ 100 mls/hr IVPB Q12 [facility] PRN Reason: Protocol Stop: 08/08/16 10:01 Last Admin: 07/17/16 10:56 Dose: 100 mls/hr Heparin Sodium/Sodium Chloride (Heparin 44091 Units/250ml 1/2 Normal Saline) 250 mls @ 31.943 mls/hr IV .Q7H50M PRN; Protocol; 22.3 UNITS/KG/HR PRN Reason: ADJUST RATE PER PROTOCOL Last Admin: 07/17/16 10:53 Dose: 27.03 mls/hr Dextrose/Sodium Chloride (Dextrose 5%/0.9% Ns 1000 Ml) 1,000 mls @ 150 mls/hr IV .Q6H40M [facility] Last Admin: 07/17/16 11:35 Dose: 150 mls/hr Metoclopramide HCl (Reglan) 10 mg IVP Q6 [facility] Last Admin: 07/17/16 11:39 Dose: 10 mg Metoprolol Tartrate (Lopressor) 25 mg PO BID [facility] Last Admin: 07/17/16 11:45 Dose: 25 mg Multivitamins/Minerals (Therapeutic-M Tab) 1 tab PO DAILY [facility] Last Admin: 07/17/16 11:39 Dose: 1 tab Nicotine (Nicoderm Cq) 1 patch TD DAILY [facility] Last Admin: 07/17/16 11:39 Dose: 1 patch Ondansetron HCl (Zofran Inj) 4 mg IVP Q8H PRN PRN Reason: Nausea/Vomiting Last Admin: 07/16/16 02:02 Dose: 4 mg Pantoprazole Sodium (Protonix Inj) 40 mg IVP Q12 [facility] Last Admin: 07/17/16 11:40 Dose: 40 mg Petrolatum (Desitin Maximum Strength Topical 40% Oint) 0.1 gm TOP BID [facility] Last Admin: 07/17/16 11:41 Dose: 1 appl Tramadol HCl (Ultram) 50 mg PO TID PRN PRN Reason: Pain, severe (8-10) Last Admin: 07/17/16 12:27 Dose: 50 mg Zinc Sulfate (Zinc Sulfate 220 Mg Cap) 220 mg PO DAILY [facility] Last Admin: 07/17/16 11:39 Dose: 220 mg - Labs Labs: 07/17/16 06:45 07/17/16 06:45 PT 10.8 Seconds (9.9-11.8) 07/09/16 21:30 INR 1.00 (0.93-1.08) 07/09/16 21:30 APTT 70.7 Seconds (23.7-30.8) H* 07/17/16 12:45 - Constitutional Appears: Non-toxic, No Acute Distress - Head Exam Head Exam: ATRAUMATIC - ENT Exam ENT Exam: Mucous Membranes Moist - Respiratory Exam Respiratory Exam: Rhonchi. absent: Rales, Wheezes - Cardiovascular Exam Cardiovascular Exam: REGULAR RHYTHM, +S1, +S2. absent: Gallop, Rubs, Murmur - GI/Abdominal Exam GI & Abdominal Exam: Soft, Normal Bowel Sounds. absent: Firm, Guarding, Rigid, Tenderness - Extremities Exam Extremities Exam: absent: Pedal Edema, Tenderness - Neurological Exam Neurological Exam: Alert, Awake, Oriented x3 - Psychiatric Exam Psychiatric exam: Normal Affect, Normal Mood - Skin Skin Exam: Dry, Intact, Normal Color, Warm Assessment and Plan - Assessment and Plan (Free Text) Assessment: 51 year old male with no significant past medical history is s/p T2-T4 lamenectomy POD #7 US of LE showed R LE DVT s/p IVC filter Plan: 1. Epidural space abscess s/p lamenectomy T2-T4 POD #7 -Wound cultures grew strep pneumo -Pathology is pending -Rocephine -Morphine -CT of chest/abd/pelvis is negative for malignancy -ID is consulted -MRI c/ and w/o contrast on 07/07 prior to procedure showed fluid collection in ventral epidural space from T1-T5 with cord compression and obliteration of subarachinoid space; abnormal signal in T3&T4 which may represent osteomyelitis vs. metastatic dz; no disc herniation, spinal canal stenosis or neuroforaminal narrowing. Lumbar spine MRI was negative for cauda equina. Please see full reports for details. 2. Paralysis in LE - Will continue to monitor. - Aggressive PT/OT - boots are in place and pt is being turned to prevent stress ulcers 3. Neurogenic bowel vs. ileus - NG tube placed yesterday and position checked with CXR. - CT abd/pelvis showed partial SBO and small pelvic free air. - GI is consulted and rec strict bowel regimen - Heme occult was positive for blood. Will continue to monitor Hgb. - Surgery is consulted, Dr. Renteria. - Reglan 10 mg IV ACHS, Miralax, Dulcolax - Abd xray yesterday shows ileus 5. Neurogenic bladder - Haque in place - Urology is consulted. Awaiting recs 6. R LE DVT - IVC filter placed - Pt is on heparin drip and closely monitored for bleeding - Awaiting Dr. Wong's recs about starting pt on coumadin - Heme/onc is consulted - 07/06 US of LE showed thrombus in right common and proximal femoral vein 7. CP R/O ACS - Cardio is consulted - Echo showed EF of 63.5%, normal LV, trace AR, MR and TR - Hgb A1c is 6.3 8. Iron deficiency anemia - Will cont to monitor at this time. H&H is stable - Iron 35 (low), TIBC 325 (normal), Ferritin 11 (low), Vit B12 327 (Normal), folate 7.8 (normal) 9. pressure ulcer on Right gluteal region - air mattress - continue to reposition q2 - multivit, zinv, vitamin C PO ordered - Wound care pending 10. LOLA - Improved - Haque changed - Lisinopril is put on hold - Fence Rider, Dr. Buckner is consulted 10. Prophylaxis - Protonix - heparin drip Dispo: Pt uninsured. Not eligible for rehab facility. Not qualify for [facility] bc of income above $[phone] Case discussed with attending, Dr. Piedra <Tobin Piedra - Last Filed: 07/17/16 17:17> Objective - Vital Signs/Intake and Output Vital Signs (last 24 hours): Temp Pulse Resp BP Pulse Ox 99.9 F H 80 18 109/67 98 07/17/16 12:00 07/17/16 12:00 07/17/16 12:00 07/17/16 12:00 07/17/16 00:01 Intake and Output: 07/17/16 07/17/16 06:59 18:59 Intake Total 3580 0 Output Total 1800 900 Balance 1780 -900 - Medications Medications: Current Medications Albuterol/Ipratropium (Duoneb 3 Mg/0.5 Mg (3 Ml) Ud) 3 ml IH [id number] [facility] Last Admin: 07/17/16 13:23 Dose: 3 ml Ascorbic Acid (Vitamin C 500 Mg Tab) 500 mg PO DAILY [facility] Last Admin: 07/17/16 11:40 Dose: 500 mg Bacitracin (Bacitracin) 1 ea TOP DAILY [facility] Last Admin: 07/17/16 11:41 Dose: 1 ea Bisacodyl (Dulcolax) 10 mg RC DAILY [facility] Last Admin: 07/17/16 11:36 Dose: 10 mg Guaifenesin (Mucinex La) 600 mg PO BID [facility] Last Admin: 07/17/16 11:40 Dose: 600 mg Hydralazine HCl (Apresoline) 10 mg IVP Q6 PRN PRN Reason: FOR SBP>170 & Diastolic>100 Ceftriaxone Sodium (Rocephin 2 Gm Ivpb) 100 mls @ 100 mls/hr IVPB Q12 [facility] PRN Reason: Protocol Stop: 08/08/16 10:01 Last Admin: 07/17/16 10:56 Dose: 100 mls/hr Heparin Sodium/Sodium Chloride (Heparin 71823 Units/250ml 1/2 Normal Saline) 250 mls @ 31.943 mls/hr IV .Q7H50M PRN; Protocol; 22.3 UNITS/KG/HR PRN Reason: ADJUST RATE PER PROTOCOL Last Admin: 07/17/16 10:53 Dose: 27.03 mls/hr Dextrose/Sodium Chloride (Dextrose 5%/0.9% Ns 1000 Ml) 1,000 mls @ 100 mls/hr IV .Q10H [facility] Metoclopramide HCl (Reglan) 10 mg IVP Q6 [facility] Last Admin: 07/17/16 11:39 Dose: 10 mg Metoprolol Tartrate (Lopressor) 25 mg PO BID [facility] Last Admin: 07/17/16 11:45 Dose: 25 mg Multivitamins/Minerals (Therapeutic-M Tab) 1 tab PO DAILY [facility] Last Admin: 07/17/16 11:39 Dose: 1 tab Nicotine (Nicoderm Cq) 1 patch TD DAILY [facility] Last Admin: 07/17/16 11:39 Dose: 1 patch Ondansetron HCl (Zofran Inj) 4 mg IVP Q8H PRN PRN Reason: Nausea/Vomiting Last Admin: 07/16/16 02:02 Dose: 4 mg Pantoprazole Sodium (Protonix Inj) 40 mg IVP Q12 [facility] Last Admin: 07/17/16 11:40 Dose: 40 mg Petrolatum (Desitin Maximum Strength Topical 40% Oint) 0.1 gm TOP BID [facility] Last Admin: 07/17/16 11:41 Dose: 1 appl Tramadol HCl (Ultram) 50 mg PO TID PRN PRN Reason: Pain, severe (8-10) Last Admin: 07/17/16 12:27 Dose: 50 mg Zinc Sulfate (Zinc Sulfate 220 Mg Cap) 220 mg PO DAILY [facility] Last Admin: 07/17/16 11:39 Dose: 220 mg - Labs Labs: 07/17/16 06:45 07/17/16 06:45 PT 10.8 Seconds (9.9-11.8) 07/09/16 21:30 INR 1.00 (0.93-1.08) 07/09/16 21:30 APTT 70.7 Seconds (23.7-30.8) H* 07/17/16 12:45 Assessment and Plan - Assessment and Plan (Free Text) Assessment: attending note; I have seen and examined patient at bedside With resident. This is a 51 year old male with history of substance abuse (snorts cocaine), tobacco, alcohol use who got admitted for evaluation of back pain and found to have epidural abscess T1-T5, osteomyelitis, urinary retention, acute RLE DVT. He underwent emergent laminectomy and epidural abscess was drained. Wound culture is growing strep pneumonia. He is on rocephin. Repeat Blood cultures are negative. HIV negative. pathology showed bone fragments and bone marrow. No evidence of carcinoma. He has no Significant improvement in sensory or motor function. Need aggressive PT. abdominal distention and partial bowel obstruction; continue NG tube.placed yesterday. GI and surgery evaluation appreciated. During his stay, patient was taken to EGD for evaluation of gastric distention and he coded after anesthesia. He got extubated few days ago. FOBT positive. Patient has paralytic ileus. Continue PPI and reglan.abdominal distention and partial bowel obstruction; continue NG tube.placed yesterday. GI and surgery evaluation appreciated. He has been on heparin drip for acute RLE DVT and is s/p IVC filter. Eliquis could not be arranged. Will Start Coumadin once active issues are resolved. CT chest, abdomen and pelvis negative. He has haque catheter for neurogenic bladder. Urology consult appreciated. No plan as of yet for suprapubic catheterization. Psych consult appreciated. acute renal failure resolved. He was also found to have stage 1 pressure ulcer on right gluteal area. Will continue air mattress, mvi, zinc, vitamin c, zinc and continue to reposition q2 hours. follow up with Wound care. social media manager assisting the family with medicaid application. Attending/Attestation - Attestation I have personally seen and examined this patient.: Yes I have fully participated in the care of the patient.: Yes I have reviewed all pertinent clinical information, including history, physical exam and plan: Yes
--- NOTE | 2016-07-17 17:44 | CP.PCM.PN ---
Subjective - Date & Time of Evaluation Date of Evaluation: 07/17/16 Time of Evaluation: 10:50 - Subjective Subjective: Nno fevers overnight, no diarrhea currently. Noted to have had multiple episodes of vomiting last night. Noted CT scan to show partial small bowel obstruction. Objective - Vital Signs/Intake and Output Vital Signs (last 24 hours): Temp Pulse Resp BP Pulse Ox 99.9 F H 80 18 109/67 98 07/17/16 12:00 07/17/16 12:00 07/17/16 12:00 07/17/16 12:00 07/17/16 00:01 Intake and Output: 07/17/16 07/17/16 06:59 18:59 Intake Total 3580 0 Output Total 1800 900 Balance 1780 -900 - Medications Medications: Current Medications Albuterol/Ipratropium (Duoneb 3 Mg/0.5 Mg (3 Ml) Ud) 3 ml IH [id number] [facility] Last Admin: 07/17/16 13:23 Dose: 3 ml Ascorbic Acid (Vitamin C 500 Mg Tab) 500 mg PO DAILY [facility] Last Admin: 07/17/16 11:40 Dose: 500 mg Bacitracin (Bacitracin) 1 ea TOP DAILY [facility] Last Admin: 07/17/16 11:41 Dose: 1 ea Bisacodyl (Dulcolax) 10 mg RC DAILY [facility] Last Admin: 07/17/16 11:36 Dose: 10 mg Guaifenesin (Mucinex La) 600 mg PO BID [facility] Last Admin: 07/17/16 11:40 Dose: 600 mg Hydralazine HCl (Apresoline) 10 mg IVP Q6 PRN PRN Reason: FOR SBP>170 & Diastolic>100 Ceftriaxone Sodium (Rocephin 2 Gm Ivpb) 100 mls @ 100 mls/hr IVPB Q12 [facility] PRN Reason: Protocol Stop: 08/08/16 10:01 Last Admin: 07/17/16 10:56 Dose: 100 mls/hr Dextrose/Sodium Chloride (Dextrose 5%/0.9% Ns 1000 Ml) 1,000 mls @ 100 mls/hr IV .Q10H [facility] Heparin Sodium/Sodium Chloride (Heparin 40025 Units/250ml 1/2 Normal Saline) 250 mls @ 24.351 mls/hr IV .Q19T25N PRN; Protocol; 17 UNITS/KG/HR PRN Reason: ADJUST RATE PER PROTOCOL Metoclopramide HCl (Reglan) 10 mg IVP Q6 [facility] Last Admin: 07/17/16 11:39 Dose: 10 mg Metoprolol Tartrate (Lopressor) 25 mg PO BID [facility] Last Admin: 07/17/16 11:45 Dose: 25 mg Multivitamins/Minerals (Therapeutic-M Tab) 1 tab PO DAILY [facility] Last Admin: 07/17/16 11:39 Dose: 1 tab Nicotine (Nicoderm Cq) 1 patch TD DAILY [facility] Last Admin: 07/17/16 11:39 Dose: 1 patch Ondansetron HCl (Zofran Inj) 4 mg IVP Q8H PRN PRN Reason: Nausea/Vomiting Last Admin: 07/16/16 02:02 Dose: 4 mg Pantoprazole Sodium (Protonix Inj) 40 mg IVP Q12 [facility] Last Admin: 07/17/16 11:40 Dose: 40 mg Petrolatum (Desitin Maximum Strength Topical 40% Oint) 0.1 gm TOP BID [facility] Last Admin: 07/17/16 11:41 Dose: 1 appl Tramadol HCl (Ultram) 50 mg PO TID PRN PRN Reason: Pain, severe (8-10) Last Admin: 07/17/16 12:27 Dose: 50 mg Zinc Sulfate (Zinc Sulfate 220 Mg Cap) 220 mg PO DAILY [facility] Last Admin: 07/17/16 11:39 Dose: 220 mg - Labs Labs: 07/17/16 06:45 07/17/16 06:45 PT 10.8 Seconds (9.9-11.8) 07/09/16 21:30 INR 1.00 (0.93-1.08) 07/09/16 21:30 APTT 70.7 Seconds (23.7-30.8) H* 07/17/16 12:45 - Constitutional Appears: Non-toxic, No Acute Distress - Head Exam Head Exam: NORMAL INSPECTION - ENT Exam ENT Exam: Mucous Membranes Moist - Neck Exam Neck Exam: absent: Lymphadenopathy, Meningismus - Respiratory Exam Respiratory Exam: Decreased Breath Sounds - Cardiovascular Exam Cardiovascular Exam: +S1, +S2 - GI/Abdominal Exam GI & Abdominal Exam: Soft. 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 with associated cord compression and lower extremity paralysis S/P neurosurgery for abscess drainage and laminectomy POD #10 Partial small bowel obstruction significant smoking history alcohol abuse obesity with BMI 40 Plan Continue Rocephin for at least 4-6 weeks with weekly ESR, CRP, CBC, CMP Will continue to monitor clinically
--- NOTE | 2016-07-17 19:52 | PN ---
DATE: 07/17/2016 The patient is a 51-year-old male with no prior medical history, admitted with epidural abscess and u nderwent T2-T4 laminectomy. Also found to have right lower extremity DVT and likely neurogenic bowel and bladder. Nephrology following patient for acute renal failure. The patient today reports feeli ng well. Had a large bowel movement today. Denies any pain. NG tube still in place and causing thr oat irritation. PHYSICAL EXAMINATION: VITAL SIGNS: Today, blood pressure 109/67, heart rate 80, respirations 18, temperature 99.9. GENERA L: No distress, speaking coherently in full sentences. HEENT: Moist mucous membranes. Nonicteric. CHEST: Clear to auscultation bilaterally. No rales, no rhonchi, no wheezes. HEART: S1, S2 positive, no murmurs, no gallops, no rubs. ABDOMEN: Soft, distended, nontender. EXTREMITIES: No leg edema. LABORATORIES: This morning, CBC: WBC 8.4, hemoglobin 10.6, hematocrit 32.1, platelets 218. Director Of Science ry panel: Sodium 135, potassium 4.5, chloride 102, bicarb 27, BUN 40, creatinine 1.0, glucose 104, a lbumin 3.2. ASSESSMENT: 1. Acute renal failure, resolving, likely secondary to obstruction due to malfunctioning or malposit ioned Mackenzie catheter. The patient did have some evidence of tubular injury on urine microscopy and t herefore, can expect some degree of post-obstructive diuresis now that obstruction has been relieved. Agree with increasing normal saline to 150 mL per hour. Need to monitor serum sodium for ensuing h ypernatremia. Avoid nephrotoxic agents including nonsteroidal anti-inflammatory drugs and phosphate- containing Fleet's enema. 2. Epidural abscess, on ceftriaxone for Strep pneumo. No renal dose adjustment needed with this ant ibiotic. 3. Increased blood pressure, fluctuating blood pressure. Would not aggressively treat unless systol ic blood pressure consistently greater than 150. Ensure adequate pain control. 4. Deep venous thrombosis, on heparin drip for anticoagulation. As renal function has improved, can consider switching to either Lovenox or interval oral anticoagulant. 5. Anemia, secondary to iron deficiency with iron saturation at 11%. However, due to active treatme nt for infection, would hold off on giving IV iron. Can give p.o. supplementation once ileus has res olved. Jasper Buckner MD cc: [id number] TT: 07/17/2016 19:52:01 Confirmation # [id number] Dictation # [id number] en
[2016-07-18] MEDS: Albuterol-Ipratrop 3 mg / 0.5 (3 ml) UD IH SCH ×5 (02:31→20:13)
[2016-07-18] MEDS: Heparin25000 units/250ml 1/2NS 250 ML IV PRN ×3 (05:10→18:34)
--- NOTE | 2016-07-18 07:11 | CP.PCM.PN ---
<Savannah Thornton - Last Filed: 07/18/16 10:40> Subjective - Date & Time of Evaluation Date of Evaluation: 07/18/16 Time of Evaluation: 07:08 - Subjective Subjective: Gastroenterology Fellow/PGY4 Progress Note Patient notes large semi-solid bowel movement overnight confirmed by nursing. Stomach less distended. Nursing notes 700cc of NG output overnight. A 12-point review of systems negative except for as above. Objective - Vital Signs/Intake and Output Vital Signs (last 24 hours): Temp Pulse Resp BP Pulse Ox 98.4 F 66 20 132/85 98 07/18/16 06:00 07/18/16 06:00 07/18/16 06:00 07/18/16 06:00 07/18/16 06:00 Intake and Output: 07/18/16 07/18/16 06:59 18:59 Intake Total 0 1491 Output Total 1175 700 Balance -1175 791 - Medications Medications: Current Medications Albuterol/Ipratropium (Duoneb 3 Mg/0.5 Mg (3 Ml) Ud) 3 ml IH [id number] [facility] Last Admin: 07/18/16 03:15 Dose: 3 ml Ascorbic Acid (Vitamin C 500 Mg Tab) 500 mg PO DAILY [facility] Last Admin: 07/17/16 11:40 Dose: 500 mg Bacitracin (Bacitracin) 1 ea TOP DAILY [facility] Last Admin: 07/17/16 11:41 Dose: 1 ea Bisacodyl (Dulcolax) 10 mg RC DAILY [facility] Last Admin: 07/17/16 11:36 Dose: 10 mg Hydralazine HCl (Apresoline) 10 mg IVP Q6 PRN PRN Reason: FOR SBP>170 & Diastolic>100 Ceftriaxone Sodium (Rocephin 2 Gm Ivpb) 100 mls @ 100 mls/hr IVPB Q12 [facility] PRN Reason: Protocol Stop: 08/08/16 10:01 Last Admin: 07/17/16 22:43 Dose: 100 mls/hr Dextrose/Sodium Chloride (Dextrose 5%/0.9% Ns 1000 Ml) 1,000 mls @ 100 mls/hr IV .Q10H [facility] Last Admin: 07/17/16 22:44 Dose: 100 mls/hr Heparin Sodium/Sodium Chloride (Heparin 22181 Units/250ml 1/2 Normal Saline) 250 mls @ 24.351 mls/hr IV .[id number] PRN; Protocol; 17 UNITS/KG/HR PRN Reason: ADJUST RATE PER PROTOCOL Last Admin: 07/18/16 05:10 Dose: 24.3 mls/hr Metoclopramide HCl (Reglan) 10 mg IVP Q6 [facility] Last Admin: 07/18/16 05:09 Dose: 10 mg Metoprolol Tartrate (Lopressor) 25 mg PO BID [facility] Last Admin: 07/17/16 17:58 Dose: 25 mg Multivitamins/Minerals (Therapeutic-M Tab) 1 tab PO DAILY [facility] Last Admin: 07/17/16 11:39 Dose: 1 tab Nicotine (Nicoderm Cq) 1 patch TD DAILY [facility] Last Admin: 07/17/16 11:39 Dose: 1 patch Ondansetron HCl (Zofran Inj) 4 mg IVP Q8H PRN PRN Reason: Nausea/Vomiting Last Admin: 07/16/16 02:02 Dose: 4 mg Pantoprazole Sodium (Protonix Inj) 40 mg IVP Q12 [facility] Last Admin: 07/17/16 22:43 Dose: 40 mg Petrolatum (Desitin Maximum Strength Topical 40% Oint) 0.1 gm TOP BID [facility] Last Admin: 07/17/16 18:17 Dose: 1 appl Tramadol HCl (Ultram) 50 mg PO TID PRN PRN Reason: Pain, severe (8-10) Last Admin: 07/18/16 05:09 Dose: 50 mg Zinc Sulfate (Zinc Sulfate 220 Mg Cap) 220 mg PO DAILY [facility] Last Admin: 07/17/16 11:39 Dose: 220 mg - Labs Labs: 07/17/16 06:45 07/17/16 06:45 PT 10.8 Seconds (9.9-11.8) 07/09/16 21:30 INR 1.00 (0.93-1.08) 07/09/16 21:30 APTT 77.6 Seconds (23.7-30.8) H* 07/17/16 18:46 - Constitutional Appears: Non-toxic, No Acute Distress - Head Exam Head Exam: ATRAUMATIC, NORMOCEPHALIC - Eye Exam Eye Exam: EOMI, PERRL Pupil Exam: PERRL. absent: Miosis, Mydriatic - ENT Exam ENT Exam: Mucous Membranes Moist, Normal Oropharynx - Neck Exam Neck Exam: Full ROM, Normal Inspection - Respiratory Exam Respiratory Exam: Clear to Ausculation Bilateral. absent: Rales, Rhonchi - Cardiovascular Exam Cardiovascular Exam: RRR, +S1, +S2. absent: Gallop, Rubs - GI/Abdominal Exam GI & Abdominal Exam: Distended, Soft, Hypoactive Bowel Sounds. absent: Firm, Guarding, Rigid, Tenderness, Organomegaly, Rebound - Extremities Exam Extremities Exam: Normal Inspection. absent: Pedal Edema - Neurological Exam Neurological Exam: Alert, Awake, Motor Sensory Deficit - Psychiatric Exam Psychiatric exam: Normal Affect, Normal Mood - Skin Skin Exam: Dry, Intact, Normal Color, Warm Assessment and Plan - Assessment and Plan (Free Text) Assessment: 51 year old male with history of polysubstance abuse presenting with chest and back pain progression to motorsensory deficit of lower extremities complicated by urinary incontinence. Paraplegic state POD11 (07/07) emergent decompressive laminectomy 2/2 T1-T4 to L4-L5 mass/abscess. Post extubation 07/09 2/ cardiopulmonary arrest s/p ROSC. CT A/P showing partial SBOwith transition point in terminal ileum despite NG decompression for paralytic ileus. No prior EGD or colonoscopy. Plan: >surgery managing -appreciate recommendations >continue Reglan IV Q6H >PPI BID >NPO >on Heparing drip- RLE DVT >H/H stable >will benefit from outpatient EGD/colonoscopy once medically optimized >thank you for opportunity to participate in the care of this patient <Wan Mackey - Last Filed: 07/18/16 13:02> Objective - Vital Signs/Intake and Output Vital Signs (last 24 hours): Temp Pulse Resp BP Pulse Ox 98.4 F 65 20 132/75 98 07/18/16 06:00 07/18/16 10:28 07/18/16 06:00 07/18/16 10:28 07/18/16 06:00 Intake and Output: 07/18/16 07/18/16 06:59 18:59 Intake Total 0 1491 Output Total 1175 700 Balance -1175 791 - Medications Medications: Current Medications Albuterol/Ipratropium (Duoneb 3 Mg/0.5 Mg (3 Ml) Ud) 3 ml IH [id number] [facility] Last Admin: 07/18/16 07:42 Dose: Not Given Ascorbic Acid (Vitamin C 500 Mg Tab) 500 mg PO DAILY [facility] Last Admin: 07/18/16 10:28 Dose: 500 mg Bacitracin (Bacitracin) 1 ea TOP DAILY [facility] Last Admin: 07/18/16 10:27 Dose: 1 ea Bisacodyl (Dulcolax) 10 mg RC DAILY [facility] Last Admin: 07/18/16 10:26 Dose: 10 mg Hydralazine HCl (Apresoline) 10 mg IVP Q6 PRN PRN Reason: FOR SBP>170 & Diastolic>100 Ceftriaxone Sodium (Rocephin 2 Gm Ivpb) 100 mls @ 100 mls/hr IVPB Q12 [facility] PRN Reason: Protocol Stop: 08/08/16 10:01 Last Admin: 07/18/16 10:26 Dose: 100 mls/hr Dextrose/Sodium Chloride (Dextrose 5%/0.9% Ns 1000 Ml) 1,000 mls @ 100 mls/hr IV .Q10H [facility] Last Admin: 07/18/16 07:53 Dose: Not Given Heparin Sodium/Sodium Chloride (Heparin 52924 Units/250ml 1/2 Normal Saline) 250 mls @ 24.351 mls/hr IV .[id number] PRN; Protocol; 17 UNITS/KG/HR PRN Reason: ADJUST RATE PER PROTOCOL Last Admin: 07/18/16 08:02 Dose: 24.296 mls/hr Metoclopramide HCl (Reglan) 10 mg IVP Q6 [facility] Last Admin: 07/18/16 11:28 Dose: 10 mg Metoprolol Tartrate (Lopressor) 25 mg PO BID [facility] Last Admin: 07/18/16 10:28 Dose: 25 mg Multivitamins/Minerals (Therapeutic-M Tab) 1 tab PO DAILY [facility] Last Admin: 07/18/16 10:27 Dose: 1 tab Nicotine (Nicoderm Cq) 1 patch TD DAILY [facility] Last Admin: 07/18/16 10:26 Dose: 1 patch Ondansetron HCl (Zofran Inj) 4 mg IVP Q8H PRN PRN Reason: Nausea/Vomiting Last Admin: 07/16/16 02:02 Dose: 4 mg Pantoprazole Sodium (Protonix Inj) 40 mg IVP Q12 [facility] Last Admin: 07/18/16 10:28 Dose: 40 mg Petrolatum (Desitin Maximum Strength Topical 40% Oint) 0.1 gm TOP BID [facility] Last Admin: 07/18/16 10:28 Dose: 1 appl Tramadol HCl (Ultram) 50 mg PO TID PRN PRN Reason: Pain, severe (8-10) Last Admin: 07/18/16 10:27 Dose: 50 mg Zinc Sulfate (Zinc Sulfate 220 Mg Cap) 220 mg PO DAILY [facility] Last Admin: 07/18/16 10:27 Dose: 220 mg - Labs Labs: 07/18/16 07:00 07/18/16 07:00 PT 10.8 Seconds (9.9-11.8) 07/09/16 21:30 INR 1.00 (0.93-1.08) 07/09/16 21:30 APTT 63.7 Seconds (23.7-30.8) H 07/18/16 08:30 Attending/Attestation - Attestation I have personally seen and examined this patient.: Yes I have fully participated in the care of the patient.: Yes I have reviewed all pertinent clinical information, including history, physical exam and plan: Yes Notes (Text): 07/18/16 12:58 I have seen and examined patient with GI fellow. No acute events overnight, patient is seen resting comfortably in bed. NGT output of approximately 700 cc during prior nursing shift. He denies abdominal pain, nausea, vomiting. He had one large bowel movement this morning, remains NPO. Review of vitals from today are normal. 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 Follow up surgical recommendations. - No GI intervention planned, further plan as per medical and surgical teams. Patient will eventually require EGD/colonoscopy evaluation when medically stable and acute issues have resolved. Will sign off case, please reconsult as necessary, thank you.
[2016-07-18 07:30] LABS: BASO # 0.03 K/mm3 (0.0-2.0); BASO % 0.4 % (0.0-3.0); EOS # 0.2 (0.0-0.7); EOS % 2.7 % (1.5-5.0); GRAN # 5.21 (1.4-6.5); GRAN % 67.1 % (50.0-68.0); HEMOGLOBIN 10.7 gm/dL (14.0-18.0); LYMPH # 1.4 (1.2-3.4); LYMPH % 18.6 % (22.0-35.0); MEAN CELL VOLUME 92.4 fL (80.0-105.0); MEAN CORPUSCULAR HEMOGLOBIN 30.2 pg (25.0-35.0); MEAN CORPUSCULAR HGB CONC 32.7 g/dl (31.0-37.0); MEAN PLATELET VOLUME 13.3 fl (7.0-11.0); MONO # 0.9 (0.1-0.6); MONO % 11.2 % (1.0-6.0); PLATELET COUNT 223 10^3/uL (120.0-450.0); RBC 3.54 10^6/uL (3.5-6.1); RED CELL DISTRIBUTION WIDTH 13.8 % (11.5-14.5); WHITE BLOOD COUNT 7.8 10^3/ul (4.5-11.0)
[2016-07-18] MEDS: Dextrose 5%/0.9% NS 1,000 ML IV SCH ×2 (07:53→13:23)
[2016-07-18 08:05] LABS: ALB/GLOB RATIO 0.8 (1.1-1.8); ALBUMIN 3.3 g/dL (3.0-4.8); ALT/SGPT 57 U/L (7-56); AST/SGOT 53 U/L (15-59); BLOOD UREA NITROGEN 21 mg/dL (7-21); CALCIUM 8.7 mg/dL (8.4-10.5); GFR AFRICAN-AMERICAN > 60; GFR NON-AFRICAN AMERICAN > 60; MAGNESIUM 2.2 mg/dL (1.7-2.2)
--- NOTE | 2016-07-18 09:12 | CP.PCM.PN ---
Subjective - Date & Time of Evaluation Date of Evaluation: 07/18/16 Time of Evaluation: 07:07 - Subjective Subjective: General Surgery Progress Note for Dr. Renteria This 51M was seen and examined by me this AM at bedside. Nurse reports large BM yesterday evening. Patient reports minimal flatus. Denies any abdominal pain, chest pain SOB or fevers. Objective - Vital Signs/Intake and Output Vital Signs (last 24 hours): Temp Pulse Resp BP Pulse Ox 98.4 F 66 20 132/85 98 07/18/16 06:00 07/18/16 06:00 07/18/16 06:00 07/18/16 06:00 07/18/16 06:00 Intake and Output: 07/18/16 07/18/16 06:59 18:59 Intake Total 0 1491 Output Total 1175 700 Balance -1175 791 - Medications Medications: Current Medications Albuterol/Ipratropium (Duoneb 3 Mg/0.5 Mg (3 Ml) Ud) 3 ml IH [id number] [facility] Last Admin: 07/18/16 07:42 Dose: Not Given Ascorbic Acid (Vitamin C 500 Mg Tab) 500 mg PO DAILY [facility] Last Admin: 07/17/16 11:40 Dose: 500 mg Bacitracin (Bacitracin) 1 ea TOP DAILY [facility] Last Admin: 07/17/16 11:41 Dose: 1 ea Bisacodyl (Dulcolax) 10 mg RC DAILY [facility] Last Admin: 07/17/16 11:36 Dose: 10 mg Hydralazine HCl (Apresoline) 10 mg IVP Q6 PRN PRN Reason: FOR SBP>170 & Diastolic>100 Ceftriaxone Sodium (Rocephin 2 Gm Ivpb) 100 mls @ 100 mls/hr IVPB Q12 [facility] PRN Reason: Protocol Stop: 08/08/16 10:01 Last Admin: 07/17/16 22:43 Dose: 100 mls/hr Dextrose/Sodium Chloride (Dextrose 5%/0.9% Ns 1000 Ml) 1,000 mls @ 100 mls/hr IV .Q10H [facility] Last Admin: 07/18/16 07:53 Dose: Not Given Heparin Sodium/Sodium Chloride (Heparin 15541 Units/250ml 1/2 Normal Saline) 250 mls @ 24.351 mls/hr IV .[id number] PRN; Protocol; 17 UNITS/KG/HR PRN Reason: ADJUST RATE PER PROTOCOL Last Admin: 07/18/16 08:02 Dose: 24.296 mls/hr Metoclopramide HCl (Reglan) 10 mg IVP Q6 [facility] Last Admin: 07/18/16 05:09 Dose: 10 mg Metoprolol Tartrate (Lopressor) 25 mg PO BID [facility] Last Admin: 07/17/16 17:58 Dose: 25 mg Multivitamins/Minerals (Therapeutic-M Tab) 1 tab PO DAILY [facility] Last Admin: 07/17/16 11:39 Dose: 1 tab Nicotine (Nicoderm Cq) 1 patch TD DAILY [facility] Last Admin: 07/17/16 11:39 Dose: 1 patch Ondansetron HCl (Zofran Inj) 4 mg IVP Q8H PRN PRN Reason: Nausea/Vomiting Last Admin: 07/16/16 02:02 Dose: 4 mg Pantoprazole Sodium (Protonix Inj) 40 mg IVP Q12 [facility] Last Admin: 07/17/16 22:43 Dose: 40 mg Petrolatum (Desitin Maximum Strength Topical 40% Oint) 0.1 gm TOP BID [facility] Last Admin: 07/17/16 18:17 Dose: 1 appl Tramadol HCl (Ultram) 50 mg PO TID PRN PRN Reason: Pain, severe (8-10) Last Admin: 07/18/16 05:09 Dose: 50 mg Zinc Sulfate (Zinc Sulfate 220 Mg Cap) 220 mg PO DAILY [facility] Last Admin: 07/17/16 11:39 Dose: 220 mg - Labs Labs: 07/18/16 07:00 07/18/16 07:00 PT 10.8 Seconds (9.9-11.8) 07/09/16 21:30 INR 1.00 (0.93-1.08) 07/09/16 21:30 APTT 63.7 Seconds (23.7-30.8) H 07/18/16 08:30 - Constitutional Appears: Non-toxic, No Acute Distress - Head Exam Head Exam: ATRAUMATIC, NORMOCEPHALIC - Eye Exam Eye Exam: EOMI, Normal appearance - ENT Exam ENT Exam: Mucous Membranes Moist, Normal Exam - Respiratory Exam Respiratory Exam: NORMAL BREATHING PATTERN - Cardiovascular Exam Cardiovascular Exam: +S1, +S2 - GI/Abdominal Exam GI & Abdominal Exam: Distended, Hernia. absent: Guarding - Neurological Exam Neurological Exam: Alert, Awake, Normal Gait - Psychiatric Exam Psychiatric exam: Normal Affect, Normal Mood - Skin Skin Exam: Dry, Intact Assessment and Plan - Assessment and Plan (Free Text) Assessment: This is a 51M who is POD11 (07/07) emergent decompressive laminectomy T2-4 with residual neurogenic bladder and neurogenic paralytic ileus. VSS Hold Opiates Serial abdominal exams Closely monitor and replenish electrolytes as needed. NGT to suction No surgical management at this time. Continue medical management per primary team D/W Dr. Dexter Shah PGY-1
--- NOTE | 2016-07-18 09:22 | PN ---
DATE: 07/18/2016 REASON FOR CONSULTATION AND FOLLOWUP: Status post spinal abscess, status post DVT, status post CPR, intubated, now successfully extubated, nausea, vomiting, distended abdomen, paralysis of both lower e xtremities. BRIEF CLINICAL HISTORY: This 51-year-old male admitted with 1-week history of chest pain radiating t o the back, was found to be related to spinal abscess, also found DVT of the lower extremity. The pa tient had spinal abscess drained, on heparin, requiring endoscopy. The patient went for endoscopy. During this, this patient was coded, difficult intubation for 1 minute, after now successfully extuba silverio, now on the medical floor. The patient has paralysis of both lower extremities. The patient dev eloped distended belly, nausea, vomiting, on NG tube in position. Denies any chest pain, shortness o f breath, any palpitation. PHYSICAL EXAMINATION: VITAL SIGNS: Temperature afebrile, heart rate 60, blood pressure 132/85. HEENT: PERRLA. Extraocular muscles intact. NECK: Supple. No carotid bruits. No thyromegaly. CHEST: Clear to auscultation. HEART: S1, S2 regular. ABDOMEN: Soft. EXTREMITIES: Clubbing, cyanosis negative. BLOOD WORKUP: As follows: WBC 7.8, hemoglobin 10.7, hematocrit 32.7, platelet count 223. Chemistry shows sodium 137, potassium 4.3, chloride 103, carbon dioxide 26, anion gap of 11, BUN 21, creatinin e 0.7. IMPRESSION: Obesity, diabetes, spinal abscess, status post drainage of spinal abscess, paralysis of lower extremity, deep venous thrombosis of right lower extremity, distended belly, nausea, vomiting, nasogastric tube. RECOMMENDATION: Continue IV heparin for now until the GI issues resolve, then we can start Coumadin for DVT, status post acute kidney injury, now resolved. Avoid DELMIS inhibitors because the patient teo t into acute kidney injury. Use hydralazine as needed. We will assess the need if needed for calciu m channel. We will follow with you. Thank you, Dr. Marc, for providing us the opportunity in taking care of the patient. The patient had echocardiography on 07/08/2016 that showed ejection fraction 55-60%, trace aortic regurgitation, trac e mitral regurgitation, trace tricuspid regurgitation, RV systolic pressure 22, preserved LV function . We will follow with you. No active cardiac problem at this time. We will follow with you. Jarrod Barbour MD cc: [id number] TT: 07/18/2016 09:21:58 Confirmation # [id number] Dictation # [id number] tn
[2016-07-18] MEDS: Multivitamin With Minerals Tab PO SCH (10:27)
[2016-07-18] MEDS: Bacitracin 500 Units/gm Oint Foilpak UD TOP SCH (10:27)
[2016-07-18] MEDS: Zinc Oxide Topical 40% Oint (Desitin) TOP SCH ×2 (10:28→17:38)
--- NOTE | 2016-07-18 15:10 | CP.PCM.PN ---
<Keri Guzman - Last Filed: 07/18/16 15:07> Subjective - Date & Time of Evaluation Date of Evaluation: 07/18/16 Time of Evaluation: 15:07 - Subjective Subjective: HOSPITALIST PROGRESS NOTE Pt is seen and examined at bedside. Patient had 1 large BM yesterday. According to nurse, no overt blood in stool. Patient denies having any CP, SOB. He still has a productive cough. Haque in place draining herb urine 2075 cc. NG tube output is greenish 425 cc. Objective - Vital Signs/Intake and Output Vital Signs (last 24 hours): Temp Pulse Resp BP Pulse Ox 98.4 F 61 20 132/75 98 07/18/16 06:00 07/18/16 14:00 07/18/16 06:00 07/18/16 10:28 07/18/16 06:00 Intake and Output: 07/18/16 07/18/16 06:59 18:59 Intake Total 0 1491 Output Total 1175 1800 Balance -1175 -309 - Medications Medications: Current Medications Albuterol/Ipratropium (Duoneb 3 Mg/0.5 Mg (3 Ml) Ud) 3 ml IH [id number] [facility] Last Admin: 07/18/16 13:15 Dose: Not Given Ascorbic Acid (Vitamin C 500 Mg Tab) 500 mg PO DAILY [facility] Last Admin: 07/18/16 10:28 Dose: 500 mg Bacitracin (Bacitracin) 1 ea TOP DAILY [facility] Last Admin: 07/18/16 10:27 Dose: 1 ea Bisacodyl (Dulcolax) 10 mg RC DAILY [facility] Last Admin: 07/18/16 10:26 Dose: 10 mg Hydralazine HCl (Apresoline) 10 mg IVP Q6 PRN PRN Reason: FOR SBP>170 & Diastolic>100 Ceftriaxone Sodium (Rocephin 2 Gm Ivpb) 100 mls @ 100 mls/hr IVPB Q12 [facility] PRN Reason: Protocol Stop: 08/08/16 10:01 Last Admin: 07/18/16 10:26 Dose: 100 mls/hr Dextrose/Sodium Chloride (Dextrose 5%/0.9% Ns 1000 Ml) 1,000 mls @ 100 mls/hr IV .Q10H [facility] Last Admin: 07/18/16 13:23 Dose: 100 mls/hr Heparin Sodium/Sodium Chloride (Heparin 04955 Units/250ml 1/2 Normal Saline) 250 mls @ 24.351 mls/hr IV .[id number] PRN; Protocol; 17 UNITS/KG/HR PRN Reason: ADJUST RATE PER PROTOCOL Last Admin: 07/18/16 08:02 Dose: 24.296 mls/hr Metoclopramide HCl (Reglan) 10 mg IVP Q6 [facility] Last Admin: 07/18/16 11:28 Dose: 10 mg Metoprolol Tartrate (Lopressor) 25 mg PO BID [facility] Last Admin: 07/18/16 10:28 Dose: 25 mg Multivitamins/Minerals (Therapeutic-M Tab) 1 tab PO DAILY [facility] Last Admin: 07/18/16 10:27 Dose: 1 tab Nicotine (Nicoderm Cq) 1 patch TD DAILY [facility] Last Admin: 07/18/16 10:26 Dose: 1 patch Ondansetron HCl (Zofran Inj) 4 mg IVP Q8H PRN PRN Reason: Nausea/Vomiting Last Admin: 07/16/16 02:02 Dose: 4 mg Pantoprazole Sodium (Protonix Inj) 40 mg IVP Q12 [facility] Last Admin: 07/18/16 10:28 Dose: 40 mg Petrolatum (Desitin Maximum Strength Topical 40% Oint) 0.1 gm TOP BID [facility] Last Admin: 07/18/16 10:28 Dose: 1 appl Tramadol HCl (Ultram) 50 mg PO TID PRN PRN Reason: Pain, severe (8-10) Last Admin: 07/18/16 10:27 Dose: 50 mg Zinc Sulfate (Zinc Sulfate 220 Mg Cap) 220 mg PO DAILY [facility] Last Admin: 07/18/16 10:27 Dose: 220 mg - Labs Labs: 07/18/16 07:00 07/18/16 07:00 PT 10.8 Seconds (9.9-11.8) 07/09/16 21:30 INR 1.00 (0.93-1.08) 07/09/16 21:30 APTT 63.7 Seconds (23.7-30.8) H 07/18/16 08:30 - Constitutional Appears: Non-toxic, No Acute Distress - Head Exam Head Exam: ATRAUMATIC - Eye Exam Eye Exam: EOMI - ENT Exam ENT Exam: Mucous Membranes Moist - Respiratory Exam Respiratory Exam: Rhonchi (diffusely). absent: Rales, Wheezes - Cardiovascular Exam Cardiovascular Exam: REGULAR RHYTHM, +S1, +S2. absent: Gallop, Rubs, Murmur - GI/Abdominal Exam GI & Abdominal Exam: Distended, Soft, Hypoactive Bowel Sounds. absent: Firm, Guarding, Tenderness - Extremities Exam Extremities Exam: absent: Pedal Edema, Tenderness - Neurological Exam Neurological Exam: Alert, Awake, Oriented x3 - Psychiatric Exam Psychiatric exam: Normal Affect, Normal Mood - Skin Skin Exam: Dry, Intact, Normal Color, Warm Assessment and Plan - Assessment and Plan (Free Text) Assessment: 51 year old male with no significant past medical history is s/p T2-T4 lamenectomy POD #7 US of LE showed R LE DVT s/p IVC filter Plan: 1. Epidural space abscess s/p lamenectomy T2-T4 POD #7 -Wound cultures grew strep pneumo -Pathology shows fragments of bone with no metastatic disease. See report for full details -Rocephin -Morphine -CT of chest/abd/pelvis is negative for malignancy -ID is consulted -MRI c/ and w/o contrast on 4 prior to procedure showed fluid collection in ventral epidural space from T1-T5 with cord compression and obliteration of subarachinoid space; abnormal signal in T3&T4 which may represent osteomyelitis vs. metastatic dz; no disc herniation, spinal canal stenosis or neuroforaminal narrowing. Lumbar spine MRI was negative for cauda equina. Please see full reports for details. 2. Paralysis in LE - Will continue to monitor. - Aggressive PT/OT - boots are in place and pt is being turned to prevent stress ulcers 3. Neurogenic bowel vs. ileus - Surgery is consulted. Per surgery recs, will try clamping trial on NG tube. If patient tolerates, will start pt on diet. - CT abd/pelvis showed partial SBO and small pelvic free air. - GI is consulted. Continue bowel regimen of Reglan 10 mg IV ACHS, Miralax, Dulcolax - Heme occult was positive for blood. Will continue to monitor Hgb. 5. Neurogenic bladder - Haque in place - Urology is consulted. Awaiting recs 6. R LE DVT - IVC filter placed - Pt is on heparin drip and closely monitored for bleeding - Awaiting Dr. Wong's recs about starting pt on coumadin - Heme/onc is consulted - 07/06 US of LE showed thrombus in right common and proximal femoral vein 7. CP R/O ACS - Cardio is consulted - Echo showed EF of 63.5%, normal LV, trace AR, MR and TR - Hgb A1c is 6.3 8. Iron deficiency anemia - Will cont to monitor at this time. H&H is stable - Iron 35 (low), TIBC 325 (normal), Ferritin 11 (low), Vit B12 327 (Normal), folate 7.8 (normal) 9. pressure ulcer on Right gluteal region - air mattress - continue to reposition q2 - multivit, zinv, vitamin C PO ordered - Wound care pending 10. LOLA -Resolved - Haque changed - Lisinopril is put on hold - Engineer Technician, Dr. Buckner is consulted 10. Prophylaxis - Protonix - heparin drip Dispo: Pt uninsured. Not eligible for rehab facility. Not qualify for [facility] bc of income above $[phone] Case discussed with attending, Dr. Piedra <Tobin Piedra - Last Filed: 07/18/16 16:39> Objective - Vital Signs/Intake and Output Vital Signs (last 24 hours): Temp Pulse Resp BP Pulse Ox 98.4 F 61 20 132/75 98 07/18/16 06:00 07/18/16 14:00 07/18/16 06:00 07/18/16 10:28 07/18/16 06:00 Intake and Output: 07/18/16 07/18/16 06:59 18:59 Intake Total 0 1491 Output Total 1175 1800 Balance -1175 -309 - Medications Medications: Current Medications Albuterol/Ipratropium (Duoneb 3 Mg/0.5 Mg (3 Ml) Ud) 3 ml IH [id number] [facility] Last Admin: 07/18/16 13:15 Dose: Not Given Ascorbic Acid (Vitamin C 500 Mg Tab) 500 mg PO DAILY [facility] Last Admin: 07/18/16 10:28 Dose: 500 mg Bacitracin (Bacitracin) 1 ea TOP DAILY [facility] Last Admin: 07/18/16 10:27 Dose: 1 ea Bisacodyl (Dulcolax) 10 mg RC DAILY [facility] Last Admin: 07/18/16 10:26 Dose: 10 mg Hydralazine HCl (Apresoline) 10 mg IVP Q6 PRN PRN Reason: FOR SBP>170 & Diastolic>100 Ceftriaxone Sodium (Rocephin 2 Gm Ivpb) 100 mls @ 100 mls/hr IVPB Q12 [facility] PRN Reason: Protocol Stop: 08/08/16 10:01 Last Admin: 07/18/16 10:26 Dose: 100 mls/hr Dextrose/Sodium Chloride (Dextrose 5%/0.9% Ns 1000 Ml) 1,000 mls @ 100 mls/hr IV .Q10H [facility] Last Admin: 07/18/16 13:23 Dose: 100 mls/hr Heparin Sodium/Sodium Chloride (Heparin 68101 Units/250ml 1/2 Normal Saline) 250 mls @ 24.351 mls/hr IV .[id number] PRN; Protocol; 17 UNITS/KG/HR PRN Reason: ADJUST RATE PER PROTOCOL Last Admin: 07/18/16 08:02 Dose: 24.296 mls/hr Metoclopramide HCl (Reglan) 10 mg IVP Q6 [facility] Last Admin: 07/18/16 11:28 Dose: 10 mg Metoprolol Tartrate (Lopressor) 25 mg PO BID [facility] Last Admin: 07/18/16 10:28 Dose: 25 mg Multivitamins/Minerals (Therapeutic-M Tab) 1 tab PO DAILY [facility] Last Admin: 07/18/16 10:27 Dose: 1 tab Nicotine (Nicoderm Cq) 1 patch TD DAILY [facility] Last Admin: 07/18/16 10:26 Dose: 1 patch Ondansetron HCl (Zofran Inj) 4 mg IVP Q8H PRN PRN Reason: Nausea/Vomiting Last Admin: 07/16/16 02:02 Dose: 4 mg Pantoprazole Sodium (Protonix Inj) 40 mg IVP Q12 [facility] Last Admin: 07/18/16 10:28 Dose: 40 mg Petrolatum (Desitin Maximum Strength Topical 40% Oint) 0.1 gm TOP BID [facility] Last Admin: 07/18/16 10:28 Dose: 1 appl Tramadol HCl (Ultram) 50 mg PO TID PRN PRN Reason: Pain, severe (8-10) Last Admin: 07/18/16 10:27 Dose: 50 mg Zinc Sulfate (Zinc Sulfate 220 Mg Cap) 220 mg PO DAILY [facility] Last Admin: 07/18/16 10:27 Dose: 220 mg - Labs Labs: 07/18/16 07:00 07/18/16 07:00 PT 10.8 Seconds (9.9-11.8) 07/09/16 21:30 INR 1.00 (0.93-1.08) 07/09/16 21:30 APTT 63.7 Seconds (23.7-30.8) H 07/18/16 08:30 Assessment and Plan - Assessment and Plan (Free Text) Assessment: attending note; I have seen and examined patient at bedside With resident. This is a 51 year old male with history of substance abuse (snorts cocaine), tobacco, alcohol use who got admitted for evaluation of back pain and found to have epidural abscess T1-T5, osteomyelitis, urinary retention, acute RLE DVT. He underwent emergent laminectomy and epidural abscess was drained. Wound culture is growing strep pneumonia. He is on rocephin. Repeat Blood cultures are negative. HIV negative. pathology showed bone fragments and bone marrow. No evidence of carcinoma. He has no Significant improvement in sensory or motor function. Not moving both LE. abdominal distention and partial bowel obstruction; continue NG tube.GI and surgery evaluation appreciated. Had BM yesterday. abdominal distention is slowly improving. He has been on heparin drip for acute RLE DVT and is s/p IVC filter. Will Start Coumadin once active issues are resolved. He has haque catheter for neurogenic bladder. Urology consult appreciated. case discussed with urology Dr. Iqbal in detail. frequent turning to avoid pressure sores/continue wound care. social media manager assisting the family with medicaid application. Attending/Attestation - Attestation I have personally seen and examined this patient.: Yes I have fully participated in the care of the patient.: Yes I have reviewed all pertinent clinical information, including history, physical exam and plan: Yes
--- NOTE | 2016-07-18 18:01 | CP.PCM.PN ---
Subjective - Date & Time of Evaluation Date of Evaluation: 07/18/16 Time of Evaluation: 11:00 - Subjective Subjective: Comfortable in bed, not in distress, no fevers overnight. Objective - Vital Signs/Intake and Output Vital Signs (last 24 hours): Temp Pulse Resp BP Pulse Ox 98.3 F 65 20 161/85 H 96 07/18/16 17:36 07/18/16 17:36 07/18/16 17:36 07/18/16 17:36 07/18/16 17:36 Intake and Output: 07/18/16 07/18/16 06:59 18:59 Intake Total 0 1491 Output Total 1175 1800 Balance -1175 -309 - Medications Medications: Current Medications Albuterol/Ipratropium (Duoneb 3 Mg/0.5 Mg (3 Ml) Ud) 3 ml IH [id number] [facility] Last Admin: 07/18/16 13:15 Dose: Not Given Ascorbic Acid (Vitamin C 500 Mg Tab) 500 mg PO DAILY [facility] Last Admin: 07/18/16 10:28 Dose: 500 mg Bacitracin (Bacitracin) 1 ea TOP DAILY [facility] Last Admin: 07/18/16 10:27 Dose: 1 ea Bisacodyl (Dulcolax) 10 mg RC DAILY [facility] Last Admin: 07/18/16 10:26 Dose: 10 mg Hydralazine HCl (Apresoline) 10 mg IVP Q6 PRN PRN Reason: FOR SBP>170 & Diastolic>100 Ceftriaxone Sodium (Rocephin 2 Gm Ivpb) 100 mls @ 100 mls/hr IVPB Q12 [facility] PRN Reason: Protocol Stop: 08/08/16 10:01 Last Admin: 07/18/16 10:26 Dose: 100 mls/hr Dextrose/Sodium Chloride (Dextrose 5%/0.9% Ns 1000 Ml) 1,000 mls @ 100 mls/hr IV .Q10H [facility] Last Admin: 07/18/16 13:23 Dose: 100 mls/hr Heparin Sodium/Sodium Chloride (Heparin 75688 Units/250ml 1/2 Normal Saline) 250 mls @ 24.351 mls/hr IV .[id number] PRN; Protocol; 17 UNITS/KG/HR PRN Reason: ADJUST RATE PER PROTOCOL Last Admin: 07/18/16 08:02 Dose: 24.296 mls/hr Metoclopramide HCl (Reglan) 10 mg IVP Q6 [facility] Last Admin: 07/18/16 17:36 Dose: 10 mg Metoprolol Tartrate (Lopressor) 25 mg PO BID [facility] Last Admin: 07/18/16 17:36 Dose: 25 mg Multivitamins/Minerals (Therapeutic-M Tab) 1 tab PO DAILY [facility] Last Admin: 07/18/16 10:27 Dose: 1 tab Nicotine (Nicoderm Cq) 1 patch TD DAILY [facility] Last Admin: 07/18/16 10:26 Dose: 1 patch Ondansetron HCl (Zofran Inj) 4 mg IVP Q8H PRN PRN Reason: Nausea/Vomiting Last Admin: 07/16/16 02:02 Dose: 4 mg Pantoprazole Sodium (Protonix Inj) 40 mg IVP Q12 [facility] Last Admin: 07/18/16 10:28 Dose: 40 mg Petrolatum (Desitin Maximum Strength Topical 40% Oint) 0.1 gm TOP BID [facility] Last Admin: 07/18/16 17:38 Dose: 1 appl Tramadol HCl (Ultram) 50 mg PO TID PRN PRN Reason: Pain, severe (8-10) Last Admin: 07/18/16 10:27 Dose: 50 mg Zinc Sulfate (Zinc Sulfate 220 Mg Cap) 220 mg PO DAILY [facility] Last Admin: 07/18/16 10:27 Dose: 220 mg - Labs Labs: 07/18/16 07:00 07/18/16 07:00 PT 10.8 Seconds (9.9-11.8) 07/09/16 21:30 INR 1.00 (0.93-1.08) 07/09/16 21:30 APTT 63.7 Seconds (23.7-30.8) H 07/18/16 08:30 - Constitutional Appears: Non-toxic, No Acute Distress - Head Exam Head Exam: NORMAL INSPECTION - ENT Exam ENT Exam: Mucous Membranes Moist - Neck Exam Neck Exam: absent: Lymphadenopathy, Meningismus - Respiratory Exam Respiratory Exam: Decreased Breath Sounds - Cardiovascular Exam Cardiovascular Exam: +S1, +S2 - GI/Abdominal Exam GI & Abdominal Exam: Soft. 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 with associated cord compression and lower extremity paralysis S/P neurosurgery for abscess drainage and laminectomy POD #11 Partial small bowel obstruction significant smoking history alcohol abuse obesity with BMI 40 Plan Continue Rocephin for at least 4-6 weeks with weekly ESR, CRP, CBC, CMP Will continue to monitor clinically
--- NOTE | 2016-07-18 19:04 | PN ---
DATE: 07/18/2016 The patient is a 51-year-old male with no prior medical history, admitted with epidural abscess and underwent T2 to T4 laminectomy. Also found to have right lower extremity DVT and likely neurogenic bowel and bladder. Nephrology following patient for acute renal failure. The patient reports feeling well today, still n.p.o. in the setting of ileus reporting some chest congestion. PHYSICAL EXAMINATION: VITAL SIGNS: This morning, blood pressure 132/85, heart rate 66, respirations 20, temperature 98.4, O2 sat 98% on room air. GENERAL: The patient lying comfortably in bed, no distress, conversing coherently in full sentences. HEENT: Moist mucous membranes. Nonicteric. CHEST: Congested upper airway sounds heard. HEART: S1, S2 positive, no murmurs, no gallops, no rubs. ABDOMEN: Soft, distended. Mild epigastric tenderness. EXTREMITIES: Mild leg edema, more prominent proximally. LABORATORY DATA: CBC: WBC 7.8, hemoglobin 10.8, hematocrit 32.7, platelets 223. Sodium 136, potassium 4.3, chloride 103, bicarbonate 26, BUN 21, creatinine 0.7, glucose 97, calcium 8.7. ASSESSMENT: 1. Acute renal failure, resolved, most likely secondary to obstruction due to malfunctioning or malpositioned Mackenzie catheter with the patient having some evidence of tubular injury on urine microscopy. The patient has been on IV fluids, cut down from 150 an hour yesterday to 100 an hour today. Serum sodium is normal. Continue the same. Avoid nephrotoxic agents. 2. Epidural abscess on ceftriaxone for sepsis streptococcus pneumonia. No renal dose adjustment needed with this antibiotics. 3. Increased blood pressure. Blood pressure fluctuating, normotensive this morning, higher readings seen this afternoon. Would not aggressively treat unless systolic blood pressure consistently greater than 150. Need to ensure adequate pain control. 4. Deep venous thrombosis on heparin drip for anticoagulation. His renal function has returned to normal. Can considered switching to full dose Lovenox or one of the novel oral anticoagulants. 5. Anemia secondary to iron deficiency. We would hold off on giving IV iron in the setting of being treated for epidural abscess. Can give p.o. supplementation once ileus has resolved. Nephrology service will sign off. We thank you for this consult. Please feel free to contact us again. Jasper Buckner MD cc: [id number] TT: 07/18/2016 19:04:09 Confirmation # [id number] Dictation # [id number] MTDD
[2016-07-19] MEDS: Albuterol-Ipratrop 3 mg / 0.5 (3 ml) UD IH SCH ×5 (01:55→23:33)
[2016-07-19] MEDS: Dextrose 5%/0.9% NS 1,000 ML IV SCH ×2 (05:00→17:55)
[2016-07-19] MEDS: Heparin25000 units/250ml 1/2NS 250 ML IV PRN ×2 (05:00→17:53)
--- NOTE | 2016-07-19 07:40 | CP.PCM.PN ---
Subjective - Date & Time of Evaluation Date of Evaluation: 07/19/16 Time of Evaluation: 07:36 - Subjective Subjective: Surgery: Dr. Askew Pt seen and examined. NGT was clamped yesterday afternoon and through the night. Pt states that he is feeling well this morning. No N/V. No abd pain. His abd still appears distended but he states that he has always had a large abd and this is normal for him. Per nursing he did have BM. Objective - Vital Signs/Intake and Output Vital Signs (last 24 hours): Temp Pulse Resp BP Pulse Ox 98.6 F 57 L 18 134/74 97 07/19/16 05:50 07/19/16 05:50 07/19/16 05:50 07/19/16 05:50 07/19/16 05:50 Intake and Output: 07/19/16 07/19/16 06:59 18:59 Intake Total 2400 Output Total 1550 Balance 850 - Medications Medications: Current Medications Albuterol/Ipratropium (Duoneb 3 Mg/0.5 Mg (3 Ml) Ud) 3 ml IH [id number] [facility] Last Admin: 07/19/16 01:55 Dose: Not Given Ascorbic Acid (Vitamin C 500 Mg Tab) 500 mg PO DAILY [facility] Last Admin: 07/18/16 10:28 Dose: 500 mg Bacitracin (Bacitracin) 1 ea TOP DAILY [facility] Last Admin: 07/18/16 10:27 Dose: 1 ea Bisacodyl (Dulcolax) 10 mg RC DAILY [facility] Last Admin: 07/18/16 10:26 Dose: 10 mg Hydralazine HCl (Apresoline) 10 mg IVP Q6 PRN PRN Reason: FOR SBP>170 & Diastolic>100 Ceftriaxone Sodium (Rocephin 2 Gm Ivpb) 100 mls @ 100 mls/hr IVPB Q12 [facility] PRN Reason: Protocol Stop: 08/08/16 10:01 Last Admin: 07/18/16 21:38 Dose: 100 mls/hr Dextrose/Sodium Chloride (Dextrose 5%/0.9% Ns 1000 Ml) 1,000 mls @ 100 mls/hr IV .Q10H [facility] Last Admin: 07/19/16 05:00 Dose: 100 mls/hr Heparin Sodium/Sodium Chloride (Heparin 82488 Units/250ml 1/2 Normal Saline) 250 mls @ 24.351 mls/hr IV .[id number] PRN; Protocol; 17 UNITS/KG/HR PRN Reason: ADJUST RATE PER PROTOCOL Last Admin: 07/19/16 05:00 Dose: 24.296 mls/hr Metoclopramide HCl (Reglan) 10 mg IVP Q6 [facility] Last Admin: 07/19/16 05:29 Dose: 10 mg Metoprolol Tartrate (Lopressor) 25 mg PO BID [facility] Last Admin: 07/18/16 17:36 Dose: 25 mg Multivitamins/Minerals (Therapeutic-M Tab) 1 tab PO DAILY [facility] Last Admin: 07/18/16 10:27 Dose: 1 tab Nicotine (Nicoderm Cq) 1 patch TD DAILY [facility] Last Admin: 07/18/16 10:26 Dose: 1 patch Ondansetron HCl (Zofran Inj) 4 mg IVP Q8H PRN PRN Reason: Nausea/Vomiting Last Admin: 07/16/16 02:02 Dose: 4 mg Pantoprazole Sodium (Protonix Inj) 40 mg IVP Q12 [facility] Last Admin: 07/18/16 21:36 Dose: 40 mg Petrolatum (Desitin Maximum Strength Topical 40% Oint) 0.1 gm TOP BID [facility] Last Admin: 07/18/16 17:38 Dose: 1 appl Tramadol HCl (Ultram) 50 mg PO TID PRN PRN Reason: Pain, severe (8-10) Last Admin: 07/18/16 22:02 Dose: 50 mg Zinc Sulfate (Zinc Sulfate 220 Mg Cap) 220 mg PO DAILY [facility] Last Admin: 07/18/16 10:27 Dose: 220 mg - Labs Labs: 07/18/16 07:00 07/18/16 07:00 PT 10.8 Seconds (9.9-11.8) 07/09/16 21:30 INR 1.00 (0.93-1.08) 07/09/16 21:30 APTT 62.1 Seconds (23.7-30.8) H 07/18/16 18:35 - Constitutional Appears: Non-toxic, No Acute Distress - Head Exam Head Exam: ATRAUMATIC, NORMOCEPHALIC - Eye Exam Eye Exam: EOMI. absent: Scleral icterus - ENT Exam ENT Exam: Mucous Membranes Moist - Neck Exam Neck Exam: Full ROM - Respiratory Exam Respiratory Exam: NORMAL BREATHING PATTERN. absent: Accessory Muscle Use, Respiratory Distress - GI/Abdominal Exam GI & Abdominal Exam: Distended, Soft. absent: Firm, Guarding, Rigid, Tenderness - Extremities Exam Additional comments: no motor fxn b/l LE - Neurological Exam Neurological Exam: Alert, Awake, Oriented x3 - Psychiatric Exam Psychiatric exam: Normal Affect, Normal Mood Assessment and Plan - Assessment and Plan (Free Text) Assessment: 51M w. spinal abscess s/p T1-T4 laminectomy w. subsqeunt neurogenic bowel vs. ileus -NGT clamped overnight and tolerated. Will d/w attending removing NGT and starting CLD -Avoid narcotics -monitor electrolytes and replete as needed -serial abd exams -will d/w attending Deangelo PGY2
[2016-07-19 08:01] LABS: BASO # 0.04 K/mm3 (0.0-2.0); BASO % 0.5 % (0.0-3.0); EOS # 0.2 (0.0-0.7); EOS % 2.1 % (1.5-5.0); GRAN # 5.43 (1.4-6.5); GRAN % 70.7 % (50.0-68.0); HEMOGLOBIN 10.7 gm/dL (14.0-18.0); LYMPH # 1.3 (1.2-3.4); LYMPH % 17.2 % (22.0-35.0); MEAN CELL VOLUME 91.9 fL (80.0-105.0); MEAN CORPUSCULAR HEMOGLOBIN 30.8 pg (25.0-35.0); MEAN CORPUSCULAR HGB CONC 33.5 g/dl (31.0-37.0); MEAN PLATELET VOLUME 12.1 fl (7.0-11.0); MONO # 0.7 (0.1-0.6); MONO % 9.5 % (1.0-6.0); PLATELET COUNT 197 10^3/uL (120.0-450.0); RBC 3.47 10^6/uL (3.5-6.1); RED CELL DISTRIBUTION WIDTH 13.6 % (11.5-14.5); WHITE BLOOD COUNT 7.7 10^3/ul (4.5-11.0)
[2016-07-19 08:14] LABS: ALB/GLOB RATIO 0.8 (1.1-1.8); ALBUMIN 3.2 g/dL (3.0-4.8); ALT/SGPT 63 U/L (7-56); AST/SGOT 37 U/L (15-59); BLOOD UREA NITROGEN 15 mg/dL (7-21); CALCIUM 8.8 mg/dL (8.4-10.5); GFR AFRICAN-AMERICAN > 60; GFR NON-AFRICAN AMERICAN > 60; MAGNESIUM 1.9 mg/dL (1.7-2.2)
[2016-07-19] MEDS: Bacitracin 500 Units/gm Oint Foilpak UD TOP SCH (10:23)
--- NOTE | 2016-07-19 10:23 | CP.PCM.PN ---
<ThomasKeri - Last Filed: 07/19/16 10:18> Subjective - Date & Time of Evaluation Date of Evaluation: 07/19/16 Time of Evaluation: 10:19 - Subjective Subjective: HOSPITALIST PROGRESS NOTE Pt is seen and examined at bedside. No acute events overnight. NG tube clammed yesterday afternoon, no vomiting overnight. Pt had 1 BM overnight. Haque in place draining herb urine. No CP, SOB. Objective - Vital Signs/Intake and Output Vital Signs (last 24 hours): Temp Pulse Resp BP Pulse Ox 98.6 F 57 L 18 134/74 97 07/19/16 05:50 07/19/16 05:50 07/19/16 05:50 07/19/16 05:50 07/19/16 05:50 Intake and Output: 07/19/16 07/19/16 06:59 18:59 Intake Total 2400 Output Total 1550 Balance 850 - Medications Medications: Current Medications Albuterol/Ipratropium (Duoneb 3 Mg/0.5 Mg (3 Ml) Ud) 3 ml IH [id number] [facility] Last Admin: 07/19/16 08:18 Dose: 3 ml Ascorbic Acid (Vitamin C 500 Mg Tab) 500 mg PO DAILY [facility] Last Admin: 07/18/16 10:28 Dose: 500 mg Bacitracin (Bacitracin) 1 ea TOP DAILY [facility] Last Admin: 07/18/16 10:27 Dose: 1 ea Bisacodyl (Dulcolax) 10 mg RC DAILY [facility] Last Admin: 07/18/16 10:26 Dose: 10 mg Hydralazine HCl (Apresoline) 10 mg IVP Q6 PRN PRN Reason: FOR SBP>170 & Diastolic>100 Ceftriaxone Sodium (Rocephin 2 Gm Ivpb) 100 mls @ 100 mls/hr IVPB Q12 DONAL PRN Reason: Protocol Stop: 08/08/16 10:01 Last Admin: 07/18/16 21:38 Dose: 100 mls/hr Dextrose/Sodium Chloride (Dextrose 5%/0.9% Ns 1000 Ml) 1,000 mls @ 100 mls/hr IV .Q10H [facility] Last Admin: 07/19/16 05:00 Dose: 100 mls/hr Heparin Sodium/Sodium Chloride (Heparin 94755 Units/250ml 1/2 Normal Saline) 250 mls @ 24.351 mls/hr IV .[id number] PRN; Protocol; 17 UNITS/KG/HR PRN Reason: ADJUST RATE PER PROTOCOL Last Admin: 07/19/16 05:00 Dose: 24.296 mls/hr Metoclopramide HCl (Reglan) 10 mg IVP Q6 [facility] Last Admin: 07/19/16 05:29 Dose: 10 mg Metoprolol Tartrate (Lopressor) 25 mg PO BID [facility] Last Admin: 07/18/16 17:36 Dose: 25 mg Multivitamins/Minerals (Therapeutic-M Tab) 1 tab PO DAILY [facility] Last Admin: 07/18/16 10:27 Dose: 1 tab Nicotine (Nicoderm Cq) 1 patch TD DAILY [facility] Last Admin: 07/18/16 10:26 Dose: 1 patch Ondansetron HCl (Zofran Inj) 4 mg IVP Q8H PRN PRN Reason: Nausea/Vomiting Last Admin: 07/16/16 02:02 Dose: 4 mg Pantoprazole Sodium (Protonix Inj) 40 mg IVP Q12 [facility] Last Admin: 07/18/16 21:36 Dose: 40 mg Petrolatum (Desitin Maximum Strength Topical 40% Oint) 0.1 gm TOP BID [facility] Last Admin: 07/18/16 17:38 Dose: 1 appl Tramadol HCl (Ultram) 50 mg PO TID PRN PRN Reason: Pain, severe (8-10) Last Admin: 07/18/16 22:02 Dose: 50 mg Zinc Sulfate (Zinc Sulfate 220 Mg Cap) 220 mg PO DAILY [facility] Last Admin: 07/18/16 10:27 Dose: 220 mg - Labs Labs: 07/19/16 07:53 07/19/16 07:53 PT 10.8 Seconds (9.9-11.8) 07/09/16 21:30 INR 1.00 (0.93-1.08) 07/09/16 21:30 APTT 61.3 Seconds (23.7-30.8) H 07/19/16 07:53 - Constitutional Appears: Non-toxic, No Acute Distress - Head Exam Head Exam: ATRAUMATIC - Eye Exam Eye Exam: EOMI Pupil Exam: PERRL - ENT Exam ENT Exam: Mucous Membranes Moist - Respiratory Exam Respiratory Exam: Rhonchi. absent: Rales, Wheezes - Cardiovascular Exam Cardiovascular Exam: REGULAR RHYTHM, +S1, +S2. absent: Gallop, Rubs, Murmur - GI/Abdominal Exam GI & Abdominal Exam: Distended, Soft, Normal Bowel Sounds. absent: Firm, Guarding, Rigid, Tenderness - Extremities Exam Extremities Exam: absent: Pedal Edema, Tenderness - Neurological Exam Neurological Exam: Alert, Awake, Oriented x3 - Psychiatric Exam Psychiatric exam: Normal Affect, Normal Mood - Skin Skin Exam: Dry, Intact, Normal Color, Warm Assessment and Plan - Assessment and Plan (Free Text) Assessment: 51 year old male with no significant past medical history is s/p T2-T4 lamenectomy POD #7 US of LE showed R LE DVT s/p IVC filter Plan: 1. Epidural space abscess s/p lamenectomy T2-T4 POD #7 -Wound cultures grew strep pneumo -Pathology shows fragments of bone with no metastatic disease. See report for full details -Rocephin -Tramadol. Per sx avoid narcotics. -CT of chest/abd/pelvis is negative for malignancy -ID is consulted -MRI c/ and w/o contrast on 07/07 prior to procedure showed fluid collection in ventral epidural space from T1-T5 with cord compression and obliteration of subarachinoid space; abnormal signal in T3&T4 which may represent osteomyelitis vs. metastatic dz; no disc herniation, spinal canal stenosis or neuroforaminal narrowing. Lumbar spine MRI was negative for cauda equina. Please see full reports for details. 2. Paralysis in LE - Will continue to monitor. - Aggressive PT/OT - boots are in place and pt is being turned to prevent stress ulcers 3. Neurogenic bowel vs. ileus - Surgery is consulted. - NG tube clamped. Will try CLD diets tentatively this afternoon. - CT abd/pelvis showed partial SBO and small pelvic free air. - GI is consulted. Continue bowel regimen of Reglan 10 mg IV ACHS, Miralax, Dulcolax - Heme occult was positive for blood. Will continue to monitor Hgb. 5. Neurogenic bladder - Haque in place - Urology is consulted. 6. R LE DVT - IVC filter placed - Pt is on heparin drip and closely monitored for bleeding - Awaiting Dr. Wong's recs about starting pt on coumadin - Heme/onc is consulted - 07/06 US of LE showed thrombus in right common and proximal femoral vein 7. CP R/O ACS - Cardio is consulted - Echo showed EF of 63.5%, normal LV, trace AR, MR and TR - Hgb A1c is 6.3 8. Iron deficiency anemia - Will cont to monitor at this time. H&H is stable - Iron 35 (low), TIBC 325 (normal), Ferritin 11 (low), Vit B12 327 (Normal), folate 7.8 (normal) 9. pressure ulcer on Right gluteal region - air mattress - continue to reposition q2 - multivit, zinv, vitamin C PO ordered - Wound care pending 10. LOLA -Resolved - Haque changed - Lisinopril is put on hold - Production Control Scheduler, Dr. Buckner is consulted 10. Prophylaxis - Protonix - heparin drip Dispo: Pt uninsured. Not eligible for rehab facility. Not qualify for [facility] bc of income above $[phone] Case discussed with attending, Dr. Piedra <Tobin Piedra - Last Filed: 07/19/16 10:41> Objective - Vital Signs/Intake and Output Vital Signs (last 24 hours): Temp Pulse Resp BP Pulse Ox 98.6 F 57 L 18 134/74 97 07/19/16 05:50 07/19/16 05:50 07/19/16 05:50 07/19/16 05:50 07/19/16 05:50 Intake and Output: 07/19/16 07/19/16 06:59 18:59 Intake Total 2400 Output Total 1550 Balance 850 - Medications Medications: Current Medications Albuterol/Ipratropium (Duoneb 3 Mg/0.5 Mg (3 Ml) Ud) 3 ml IH [id number] [facility] Last Admin: 07/19/16 08:18 Dose: 3 ml Ascorbic Acid (Vitamin C 500 Mg Tab) 500 mg PO DAILY [facility] Last Admin: 07/18/16 10:28 Dose: 500 mg Bacitracin (Bacitracin) 1 ea TOP DAILY [facility] Last Admin: 07/18/16 10:27 Dose: 1 ea Bisacodyl (Dulcolax) 10 mg RC DAILY [facility] Last Admin: 07/18/16 10:26 Dose: 10 mg Hydralazine HCl (Apresoline) 10 mg IVP Q6 PRN PRN Reason: FOR SBP>170 & Diastolic>100 Ceftriaxone Sodium (Rocephin 2 Gm Ivpb) 100 mls @ 100 mls/hr IVPB Q12 DONAL PRN Reason: Protocol Stop: 08/08/16 10:01 Last Admin: 07/18/16 21:38 Dose: 100 mls/hr Dextrose/Sodium Chloride (Dextrose 5%/0.9% Ns 1000 Ml) 1,000 mls @ 100 mls/hr IV .Q10H [facility] Last Admin: 07/19/16 05:00 Dose: 100 mls/hr Heparin Sodium/Sodium Chloride (Heparin 83049 Units/250ml 1/2 Normal Saline) 250 mls @ 24.351 mls/hr IV .[id number] PRN; Protocol; 17 UNITS/KG/HR PRN Reason: ADJUST RATE PER PROTOCOL Last Admin: 07/19/16 05:00 Dose: 24.296 mls/hr Metoclopramide HCl (Reglan) 10 mg IVP Q6 [facility] Last Admin: 07/19/16 05:29 Dose: 10 mg Metoprolol Tartrate (Lopressor) 25 mg PO BID [facility] Last Admin: 07/18/16 17:36 Dose: 25 mg Multivitamins/Minerals (Therapeutic-M Tab) 1 tab PO DAILY [facility] Last Admin: 07/18/16 10:27 Dose: 1 tab Nicotine (Nicoderm Cq) 1 patch TD DAILY [facility] Last Admin: 07/18/16 10:26 Dose: 1 patch Ondansetron HCl (Zofran Inj) 4 mg IVP Q8H PRN PRN Reason: Nausea/Vomiting Last Admin: 07/16/16 02:02 Dose: 4 mg Pantoprazole Sodium (Protonix Inj) 40 mg IVP Q12 [facility] Last Admin: 07/18/16 21:36 Dose: 40 mg Petrolatum (Desitin Maximum Strength Topical 40% Oint) 0.1 gm TOP BID [facility] Last Admin: 07/18/16 17:38 Dose: 1 appl Tramadol HCl (Ultram) 50 mg PO TID PRN PRN Reason: Pain, severe (8-10) Last Admin: 07/18/16 22:02 Dose: 50 mg Zinc Sulfate (Zinc Sulfate 220 Mg Cap) 220 mg PO DAILY [facility] Last Admin: 07/18/16 10:27 Dose: 220 mg - Labs Labs: 07/19/16 07:53 07/19/16 07:53 PT 10.8 Seconds (9.9-11.8) 07/09/16 21:30 INR 1.00 (0.93-1.08) 07/09/16 21:30 APTT 61.3 Seconds (23.7-30.8) H 07/19/16 07:53 Assessment and Plan - Assessment and Plan (Free Text) Assessment: attending note; I have seen and examined patient at bedside With resident. This is a 51 year old male with history of substance abuse (snorts cocaine), tobacco, alcohol use who got admitted for evaluation of back pain and found to have epidural abscess T1-T5, osteomyelitis, urinary retention, acute RLE DVT. He underwent emergent laminectomy and epidural abscess was drained. Wound culture is growing strep pneumonia. He is on rocephin. Repeat Blood cultures are negative. HIV negative. pathology showed bone fragments and bone marrow. No evidence of carcinoma. patient is able to appreciate touch in the abdominal area. Had some involuntary movement of the toes. Still not able to move the legs or toes on command. abdominal distention and partial bowel obstruction due to paralytic ileus. NG tube clamped .no significant discharge noted .patient had 2 BM yesterday. Case discussed with surgery in detail. Possible NG tube removal today. Start clear liquid diet after that. on heparin drip for acute RLE DVT and is s/p IVC filter. Will Start Coumadin once active issues are resolved. He has haque catheter for neurogenic bladder. Urology consult appreciated. case discussed with urology Dr. qIbal in detail. frequent turning to avoid pressure sores/continue wound care. Physical therapy follow-up requested. foster care social worker assisting the family with medicaid application. Attending/Attestation - Attestation I have personally seen and examined this patient.: Yes I have fully participated in the care of the patient.: Yes I have reviewed all pertinent clinical information, including history, physical exam and plan: Yes
[2016-07-19] MEDS: Multivitamin With Minerals Tab PO SCH (11:34)
[2016-07-19] MEDS: Zinc Oxide Topical 40% Oint (Desitin) TOP SCH ×2 (14:54→17:51)
--- NOTE | 2016-07-19 21:28 | CP.PCM.PN ---
Subjective - Date & Time of Evaluation Date of Evaluation: 07/19/16 Time of Evaluation: 12:25 - Subjective Subjective: Comfortable ,afebrile, still with no movement of the legs, not in distress. Not nauseated currently, had bowel movement. Objective - Vital Signs/Intake and Output Vital Signs (last 24 hours): Temp Pulse Resp BP Pulse Ox 98.2 F 58 L 20 132/73 97 07/19/16 18:00 07/19/16 19:50 07/19/16 18:00 07/19/16 18:00 07/19/16 05:50 Intake and Output: 07/19/16 07/20/16 18:59 06:59 Intake Total 3891 Output Total 902 Balance 2989 - Medications Medications: Current Medications Albuterol/Ipratropium (Duoneb 3 Mg/0.5 Mg (3 Ml) Ud) 3 ml IH [id number] [facility] Last Admin: 07/19/16 19:58 Dose: 3 ml Ascorbic Acid (Vitamin C 500 Mg Tab) 500 mg PO DAILY [facility] Last Admin: 07/19/16 11:34 Dose: 500 mg Bacitracin (Bacitracin) 1 ea TOP DAILY [facility] Last Admin: 07/19/16 10:23 Dose: 1 ea Bisacodyl (Dulcolax) 10 mg RC DAILY [facility] Last Admin: 07/19/16 10:23 Dose: 10 mg Hydralazine HCl (Apresoline) 10 mg IVP Q6 PRN PRN Reason: FOR SBP>170 & Diastolic>100 Ceftriaxone Sodium (Rocephin 2 Gm Ivpb) 100 mls @ 100 mls/hr IVPB Q12 DONAL PRN Reason: Protocol Stop: 08/08/16 10:01 Last Admin: 07/19/16 10:25 Dose: 100 mls/hr Dextrose/Sodium Chloride (Dextrose 5%/0.9% Ns 1000 Ml) 1,000 mls @ 100 mls/hr IV .Q10H [facility] Last Admin: 07/19/16 17:55 Dose: 100 mls/hr Heparin Sodium/Sodium Chloride (Heparin 66177 Units/250ml 1/2 Normal Saline) 250 mls @ 24.351 mls/hr IV .[id number] PRN; Protocol; 17 UNITS/KG/HR PRN Reason: ADJUST RATE PER PROTOCOL Last Admin: 07/19/16 17:53 Dose: 24.3 mls/hr Metoclopramide HCl (Reglan) 10 mg IVP Q6 [facility] Last Admin: 07/19/16 17:56 Dose: 10 mg Metoprolol Tartrate (Lopressor) 25 mg PO BID [facility] Last Admin: 07/19/16 17:56 Dose: 25 mg Multivitamins/Minerals (Therapeutic-M Tab) 1 tab PO DAILY [facility] Last Admin: 07/19/16 11:34 Dose: 1 tab Nicotine (Nicoderm Cq) 1 patch TD DAILY [facility] Last Admin: 07/19/16 14:57 Dose: 1 patch Ondansetron HCl (Zofran Inj) 4 mg IVP Q8H PRN PRN Reason: Nausea/Vomiting Last Admin: 07/16/16 02:02 Dose: 4 mg Pantoprazole Sodium (Protonix Inj) 40 mg IVP Q12 [facility] Last Admin: 07/19/16 11:21 Dose: 40 mg Petrolatum (Desitin Maximum Strength Topical 40% Oint) 0.1 gm TOP BID [facility] Last Admin: 07/19/16 17:51 Dose: 1 appl Tramadol HCl (Ultram) 50 mg PO TID PRN PRN Reason: Pain, severe (8-10) Last Admin: 07/18/16 22:02 Dose: 50 mg Zinc Sulfate (Zinc Sulfate 220 Mg Cap) 220 mg PO DAILY [facility] Last Admin: 07/19/16 11:35 Dose: 220 mg - Labs Labs: 07/19/16 07:53 07/19/16 07:53 PT 10.8 Seconds (9.9-11.8) 07/09/16 21:30 INR 1.00 (0.93-1.08) 07/09/16 21:30 APTT 61.3 Seconds (23.7-30.8) H 07/19/16 07:53 - Constitutional Appears: Non-toxic, No Acute Distress - Head Exam Head Exam: NORMAL INSPECTION - Respiratory Exam Respiratory Exam: Decreased Breath Sounds - Cardiovascular Exam Cardiovascular Exam: +S1, +S2 - GI/Abdominal Exam GI & Abdominal Exam: Soft. 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 with associated cord compression and lower extremity paralysis S/P neurosurgery for abscess drainage and laminectomy POD #12 Partial small bowel obstruction, slowly improving significant smoking history alcohol abuse obesity with BMI 40 Plan Continue Rocephin for at least 4-6 weeks with weekly ESR, CRP, CBC, CMP Will continue to monitor clinically
[2016-07-20] MEDS: Albuterol-Ipratrop 3 mg / 0.5 (3 ml) UD IH SCH ×4 (01:46→21:02)
[2016-07-20] MEDS: Dextrose 5%/0.9% NS 1,000 ML IV SCH ×5 (02:11→23:49)
[2016-07-20] MEDS: Heparin25000 units/250ml 1/2NS 250 ML IV PRN ×3 (02:12→23:52)
[2016-07-20 06:53] LABS: BASO # 0.02 K/mm3 (0.0-2.0); BASO % 0.4 % (0.0-3.0); EOS # 0.1 (0.0-0.7); EOS % 2.3 % (1.5-5.0); GRAN # 3.43 (1.4-6.5); GRAN % 61.7 % (50.0-68.0); HEMOGLOBIN 10.4 gm/dL (14.0-18.0); LYMPH # 1.4 (1.2-3.4); LYMPH % 24.8 % (22.0-35.0); MEAN CELL VOLUME 91.5 fL (80.0-105.0); MEAN CORPUSCULAR HEMOGLOBIN 30.5 pg (25.0-35.0); MEAN CORPUSCULAR HGB CONC 33.3 g/dl (31.0-37.0); MEAN PLATELET VOLUME 12.1 fl (7.0-11.0); MONO # 0.6 (0.1-0.6); MONO % 10.8 % (1.0-6.0); PLATELET COUNT 180 10^3/uL (120.0-450.0); RBC 3.41 10^6/uL (3.5-6.1); RED CELL DISTRIBUTION WIDTH 13.6 % (11.5-14.5); WHITE BLOOD COUNT 5.6 10^3/ul (4.5-11.0)
[2016-07-20 07:01] LABS: ALB/GLOB RATIO 0.8 (1.1-1.8); ALBUMIN 3.1 g/dL (3.0-4.8); ALT/SGPT 72 U/L (7-56); AST/SGOT 39 U/L (15-59); BLOOD UREA NITROGEN 11 mg/dL (7-21); CALCIUM 8.8 mg/dL (8.4-10.5); GFR AFRICAN-AMERICAN > 60; GFR NON-AFRICAN AMERICAN > 60
--- NOTE | 2016-07-20 09:56 | CP.PCM.PN ---
<Keri Guzman - Last Filed: 07/20/16 09:46> Subjective - Date & Time of Evaluation Date of Evaluation: 07/20/16 Time of Evaluation: 09:47 - Subjective Subjective: HOSPITALIST PROGRESS NOTE PT is seen and examined at bedside. Per nurse, 1 BM overnight and pt is passing gas. Patient tolerated sips of water overnight without any vomiting. Denies having any CP or SOB today. Objective - Vital Signs/Intake and Output Vital Signs (last 24 hours): Temp Pulse Resp BP Pulse Ox 98.2 F 69 22 134/68 98 07/20/16 05:45 07/20/16 05:45 07/20/16 05:45 07/20/16 05:45 07/20/16 05:45 Intake and Output: 07/20/16 07/20/16 06:59 18:59 Intake Total 1852 Output Total 3725 Balance -1873 - Medications Medications: Current Medications Albuterol/Ipratropium (Duoneb 3 Mg/0.5 Mg (3 Ml) Ud) 3 ml IH [id number] [facility] Last Admin: 07/20/16 07:55 Dose: 3 ml Ascorbic Acid (Vitamin C 500 Mg Tab) 500 mg PO DAILY [facility] Last Admin: 07/19/16 11:34 Dose: 500 mg Bacitracin (Bacitracin) 1 ea TOP DAILY [facility] Last Admin: 07/19/16 10:23 Dose: 1 ea Bisacodyl (Dulcolax) 10 mg RC DAILY [facility] Last Admin: 07/19/16 10:23 Dose: 10 mg Hydralazine HCl (Apresoline) 10 mg IVP Q6 PRN PRN Reason: FOR SBP>170 & Diastolic>100 Ceftriaxone Sodium (Rocephin 2 Gm Ivpb) 100 mls @ 100 mls/hr IVPB Q12 [facility] PRN Reason: Protocol Stop: 08/08/16 10:01 Last Admin: 07/19/16 22:30 Dose: 100 mls/hr Dextrose/Sodium Chloride (Dextrose 5%/0.9% Ns 1000 Ml) 1,000 mls @ 100 mls/hr IV .Q10H [facility] Last Admin: 07/20/16 04:12 Dose: Not Given Heparin Sodium/Sodium Chloride (Heparin 61444 Units/250ml 1/2 Normal Saline) 250 mls @ 24.351 mls/hr IV .[id number] PRN; Protocol; 17 UNITS/KG/HR PRN Reason: ADJUST RATE PER PROTOCOL Last Admin: 07/20/16 02:12 Dose: 24.3 mls/hr Metoclopramide HCl (Reglan) 10 mg IVP Q6 [facility] Last Admin: 07/20/16 05:04 Dose: 10 mg Metoprolol Tartrate (Lopressor) 25 mg PO BID [facility] Last Admin: 07/19/16 17:56 Dose: 25 mg Multivitamins/Minerals (Therapeutic-M Tab) 1 tab PO DAILY [facility] Last Admin: 07/19/16 11:34 Dose: 1 tab Nicotine (Nicoderm Cq) 1 patch TD DAILY [facility] Last Admin: 07/19/16 14:57 Dose: 1 patch Ondansetron HCl (Zofran Inj) 4 mg IVP Q8H PRN PRN Reason: Nausea/Vomiting Last Admin: 07/16/16 02:02 Dose: 4 mg Pantoprazole Sodium (Protonix Inj) 40 mg IVP Q12 [facility] Last Admin: 07/19/16 22:30 Dose: 40 mg Petrolatum (Desitin Maximum Strength Topical 40% Oint) 0.1 gm TOP BID [facility] Last Admin: 07/19/16 17:51 Dose: 1 appl Tramadol HCl (Ultram) 50 mg PO TID PRN PRN Reason: Pain, severe (8-10) Last Admin: 07/20/16 03:04 Dose: 50 mg Zinc Sulfate (Zinc Sulfate 220 Mg Cap) 220 mg PO DAILY [facility] Last Admin: 07/19/16 11:35 Dose: 220 mg - Labs Labs: 07/20/16 06:41 07/20/16 06:41 PT 10.8 Seconds (9.9-11.8) 07/09/16 21:30 INR 1.00 (0.93-1.08) 07/09/16 21:30 APTT 56.8 Seconds (23.7-30.8) H 07/20/16 06:41 - Constitutional Appears: Non-toxic, No Acute Distress - Head Exam Head Exam: ATRAUMATIC - Eye Exam Eye Exam: EOMI - ENT Exam ENT Exam: Mucous Membranes Moist - Respiratory Exam Respiratory Exam: Rhonchi. absent: Rales, Wheezes - Cardiovascular Exam Cardiovascular Exam: REGULAR RHYTHM, +S1, +S2. absent: Gallop, Rubs, Murmur - GI/Abdominal Exam GI & Abdominal Exam: Distended, Soft, Hypoactive Bowel Sounds. absent: Firm, Guarding, Tenderness - Extremities Exam Extremities Exam: absent: Pedal Edema - Neurological Exam Neurological Exam: Alert, Awake, Oriented x3 - Psychiatric Exam Psychiatric exam: Normal Affect, Normal Mood - Skin Skin Exam: Dry, Intact, Normal Color, Warm Assessment and Plan - Assessment and Plan (Free Text) Assessment: 51 year old male with no significant past medical history is s/p T2-T4 lamenectomy POD #7 US of LE showed R LE DVT s/p IVC filter Plan: 1. Epidural space abscess s/p lamenectomy T2-T4 POD #7 -Rocephin per ID recs -Tramadol. Per sx avoid narcotics. -ID is consulted Workup: -Wound cultures grew strep pneumo -Pathology shows fragments of bone with no metastatic disease. See report for full details -CT of chest/abd/pelvis is negative for malignancy -MRI c/ and w/o contrast on 07/07 prior to procedure showed fluid collection in ventral epidural space from T1-T5 with cord compression and obliteration of subarachinoid space; abnormal signal in T3&T4 which may represent osteomyelitis vs. metastatic dz; no disc herniation, spinal canal stenosis or neuroforaminal narrowing. Lumbar spine MRI was negative for cauda equina. Please see full reports for details. 2. Paralysis in LE - Aggressive PT/OT - boots are in place and pt is being turned to prevent stress ulcers - Will continue to monitor. 3. Neurogenic bowel vs. ileus - NG tube removed. Trial of CLD this am. - Continue bowel regimen of Reglan 10 mg IV ACHS, Miralax, Dulcolax - Surgery is consulted. Workup: - CT abd/pelvis showed partial SBO and small pelvic free air. 5. Neurogenic bladder - Haque in place - Urology is consulted. 6. R LE DVT - IVC filter placed - Pt is on heparin drip and closely monitored for bleeding - Heme/onc is consulted Workup: - 07/06 US of LE showed thrombus in right common and proximal femoral vein 7. Atypical CP - Acs ruled out with negative EKG and trops - Cardio is consulted Workup: - Echo showed EF of 63.5%, normal LV, trace AR, MR and TR - Hgb A1c is 6.3 8. Iron deficiency anemia - Will cont to monitor at this time. H&H is stable Workup: - Iron 35 (low), TIBC 325 (normal), Ferritin 11 (low), Vit B12 327 (Normal), folate 7.8 (normal) 9. pressure ulcer on Right gluteal region - air mattress - continue to reposition q2 - multivit, zinv, vitamin C PO ordered - Wound care pending 10. LOLA - Resolved - Corduroy Cutter Operator, Dr. Buckner is consulted 10. Prophylaxis - Protonix - heparin drip Dispo: Pt uninsured. Not eligible for rehab facility. Not qualify for [facility] bc of income above $[phone] Case discussed with attending, Dr. Piedra <Tobin Piedra - Last Filed: 07/20/16 10:13> Objective - Vital Signs/Intake and Output Vital Signs (last 24 hours): Temp Pulse Resp BP Pulse Ox 98.2 F 69 22 134/68 98 07/20/16 05:45 07/20/16 05:45 07/20/16 05:45 07/20/16 05:45 07/20/16 05:45 Intake and Output: 07/20/16 07/20/16 06:59 18:59 Intake Total 1852 Output Total 3725 Balance -1873 - Medications Medications: Current Medications Albuterol/Ipratropium (Duoneb 3 Mg/0.5 Mg (3 Ml) Ud) 3 ml IH [id number] [facility] Last Admin: 07/20/16 07:55 Dose: 3 ml Ascorbic Acid (Vitamin C 500 Mg Tab) 500 mg PO DAILY [facility] Last Admin: 07/19/16 11:34 Dose: 500 mg Bacitracin (Bacitracin) 1 ea TOP DAILY [facility] Last Admin: 07/19/16 10:23 Dose: 1 ea Bisacodyl (Dulcolax) 10 mg RC DAILY [facility] Last Admin: 07/19/16 10:23 Dose: 10 mg Hydralazine HCl (Apresoline) 10 mg IVP Q6 PRN PRN Reason: FOR SBP>170 & Diastolic>100 Ceftriaxone Sodium (Rocephin 2 Gm Ivpb) 100 mls @ 100 mls/hr IVPB Q12 [facility] PRN Reason: Protocol Stop: 08/08/16 10:01 Last Admin: 07/19/16 22:30 Dose: 100 mls/hr Dextrose/Sodium Chloride (Dextrose 5%/0.9% Ns 1000 Ml) 1,000 mls @ 100 mls/hr IV .Q10H [facility] Last Admin: 07/20/16 04:12 Dose: Not Given Heparin Sodium/Sodium Chloride (Heparin 03604 Units/250ml 1/2 Normal Saline) 250 mls @ 24.351 mls/hr IV .[id number] PRN; Protocol; 17 UNITS/KG/HR PRN Reason: ADJUST RATE PER PROTOCOL Last Admin: 07/20/16 02:12 Dose: 24.3 mls/hr Metoclopramide HCl (Reglan) 10 mg IVP Q6 [facility] Last Admin: 07/20/16 05:04 Dose: 10 mg Metoprolol Tartrate (Lopressor) 25 mg PO BID [facility] Last Admin: 07/19/16 17:56 Dose: 25 mg Multivitamins/Minerals (Therapeutic-M Tab) 1 tab PO DAILY [facility] Last Admin: 07/19/16 11:34 Dose: 1 tab Nicotine (Nicoderm Cq) 1 patch TD DAILY [facility] Last Admin: 07/19/16 14:57 Dose: 1 patch Ondansetron HCl (Zofran Inj) 4 mg IVP Q8H PRN PRN Reason: Nausea/Vomiting Last Admin: 07/16/16 02:02 Dose: 4 mg Pantoprazole Sodium (Protonix Inj) 40 mg IVP Q12 [facility] Last Admin: 07/19/16 22:30 Dose: 40 mg Petrolatum (Desitin Maximum Strength Topical 40% Oint) 0.1 gm TOP BID [facility] Last Admin: 07/19/16 17:51 Dose: 1 appl Tramadol HCl (Ultram) 50 mg PO TID PRN PRN Reason: Pain, severe (8-10) Last Admin: 07/20/16 03:04 Dose: 50 mg Zinc Sulfate (Zinc Sulfate 220 Mg Cap) 220 mg PO DAILY [facility] Last Admin: 07/19/16 11:35 Dose: 220 mg - Labs Labs: 07/20/16 06:41 07/20/16 06:41 PT 10.8 Seconds (9.9-11.8) 07/09/16 21:30 INR 1.00 (0.93-1.08) 07/09/16 21:30 APTT 56.8 Seconds (23.7-30.8) H 07/20/16 06:41 Assessment and Plan - Assessment and Plan (Free Text) Assessment: attending note; I have seen and examined patient at bedside With resident. This is a 51 year old male with history of substance abuse (snorts cocaine), tobacco, alcohol use who got admitted for evaluation of back pain and found to have epidural abscess T1-T5, osteomyelitis, urinary retention, acute RLE DVT. He underwent emergent laminectomy and epidural abscess was drained. Wound culture is growing strep pneumonia. He is on rocephin. HIV negative. pathology showed bone fragments and bone marrow. No evidence of carcinoma. patient is able to appreciate the touch in the abdominal area. Had some involuntary movement of the toes. Still not able to move the legs or toes on command. abdominal distention and partial bowel obstruction due to paralytic ileus. NG tube removed. Started on clear liquid diet. Advance slowly as tolerated. Case discussed with surgery in detail. on heparin drip for acute RLE DVT and is s/p IVC filter. Will Start Coumadin Tomorrow if patient tolerates clear liquid diet today. He has haque catheter for neurogenic bladder. frequent turning to avoid pressure sores/continue wound care. Physical therapy follow-up requested. group social worker assisting the family with medicaid application. Attending/Attestation - Attestation I have personally seen and examined this patient.: Yes I have fully participated in the care of the patient.: Yes I have reviewed all pertinent clinical information, including history, physical exam and plan: Yes
[2016-07-20] MEDS: Bacitracin 500 Units/gm Oint Foilpak UD TOP SCH (11:00)
[2016-07-20] MEDS: Multivitamin With Minerals Tab PO SCH (11:00)
[2016-07-20] MEDS: Zinc Oxide Topical 40% Oint (Desitin) TOP SCH ×2 (11:04→17:36)
--- NOTE | 2016-07-20 12:58 | CP.PCM.PN ---
Subjective - Date & Time of Evaluation Date of Evaluation: 07/20/16 Time of Evaluation: 12:15 - Subjective Subjective: Comfortable in bed, had a bowel movement this morning, no nausea or vomiting, no abdominal pain. No fevers overnight. Objective - Vital Signs/Intake and Output Vital Signs (last 24 hours): Temp Pulse Resp BP Pulse Ox 98.2 F 63 22 124/82 98 07/20/16 05:45 07/20/16 11:01 07/20/16 05:45 07/20/16 11:01 07/20/16 05:45 Intake and Output: 07/20/16 07/20/16 06:59 18:59 Intake Total 1852 Output Total 3725 Balance -1873 - Medications Medications: Current Medications Albuterol/Ipratropium (Duoneb 3 Mg/0.5 Mg (3 Ml) Ud) 3 ml IH [id number] [facility] Last Admin: 07/20/16 07:55 Dose: 3 ml Ascorbic Acid (Vitamin C 500 Mg Tab) 500 mg PO DAILY [facility] Last Admin: 07/20/16 11:00 Dose: 500 mg Bacitracin (Bacitracin) 1 ea TOP DAILY [facility] Last Admin: 07/20/16 11:00 Dose: 1 ea Bisacodyl (Dulcolax) 10 mg RC DAILY [facility] Last Admin: 07/20/16 11:04 Dose: Not Given Hydralazine HCl (Apresoline) 10 mg IVP Q6 PRN PRN Reason: FOR SBP>170 & Diastolic>100 Ceftriaxone Sodium (Rocephin 2 Gm Ivpb) 100 mls @ 100 mls/hr IVPB Q12 [facility] PRN Reason: Protocol Stop: 08/08/16 10:01 Last Admin: 07/20/16 11:00 Dose: 100 mls/hr Dextrose/Sodium Chloride (Dextrose 5%/0.9% Ns 1000 Ml) 1,000 mls @ 100 mls/hr IV .Q10H [facility] Last Admin: 07/20/16 04:12 Dose: Not Given Heparin Sodium/Sodium Chloride (Heparin 70447 Units/250ml 1/2 Normal Saline) 250 mls @ 24.351 mls/hr IV .[id number] PRN; Protocol; 17 UNITS/KG/HR PRN Reason: ADJUST RATE PER PROTOCOL Last Admin: 07/20/16 02:12 Dose: 24.3 mls/hr Metoclopramide HCl (Reglan) 10 mg IVP Q6 [facility] Last Admin: 07/20/16 05:04 Dose: 10 mg Metoprolol Tartrate (Lopressor) 25 mg PO BID [facility] Last Admin: 07/20/16 11:01 Dose: 25 mg Multivitamins/Minerals (Therapeutic-M Tab) 1 tab PO DAILY [facility] Last Admin: 07/20/16 11:00 Dose: 1 tab Nicotine (Nicoderm Cq) 1 patch TD DAILY [facility] Last Admin: 07/20/16 11:04 Dose: Not Given Ondansetron HCl (Zofran Inj) 4 mg IVP Q8H PRN PRN Reason: Nausea/Vomiting Last Admin: 07/16/16 02:02 Dose: 4 mg Pantoprazole Sodium (Protonix Inj) 40 mg IVP Q12 [facility] Last Admin: 07/20/16 11:00 Dose: 40 mg Petrolatum (Desitin Maximum Strength Topical 40% Oint) 0.1 gm TOP BID [facility] Last Admin: 07/20/16 11:04 Dose: 1 appl Tramadol HCl (Ultram) 50 mg PO TID PRN PRN Reason: Pain, severe (8-10) Last Admin: 07/20/16 03:04 Dose: 50 mg Zinc Sulfate (Zinc Sulfate 220 Mg Cap) 220 mg PO DAILY [facility] Last Admin: 07/20/16 11:00 Dose: 220 mg - Labs Labs: 07/20/16 06:41 07/20/16 06:41 PT 10.8 Seconds (9.9-11.8) 07/09/16 21:30 INR 1.00 (0.93-1.08) 07/09/16 21:30 APTT 56.8 Seconds (23.7-30.8) H 07/20/16 06:41 - Constitutional Appears: Non-toxic, No Acute Distress - Head Exam Head Exam: NORMAL INSPECTION - ENT Exam ENT Exam: Mucous Membranes Moist - Neck Exam Neck Exam: absent: Lymphadenopathy, Meningismus - Respiratory Exam Respiratory Exam: Decreased Breath Sounds - Cardiovascular Exam Cardiovascular Exam: +S1, +S2 - GI/Abdominal Exam GI & Abdominal Exam: Soft. 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
--- NOTE | 2016-07-20 14:51 | CP.PCM.PN ---
Subjective - Date & Time of Evaluation Date of Evaluation: 07/20/16 Time of Evaluation: 13:30 - Subjective Subjective: Surgery Progress note. Dr. Askew PT seen and examined at bedside. No acute events overnight. States that he had a large BM at 11:30 AM this morning. Denies any N/V/D. He is tolerating CLD. Still with abd distention. No new complaints. No CP/SOB. No F/C. Objective - Vital Signs/Intake and Output Vital Signs (last 24 hours): Temp Pulse Resp BP Pulse Ox 98.6 F 54 L 20 124/82 98 07/20/16 12:00 07/20/16 12:00 07/20/16 12:00 07/20/16 12:00 07/20/16 05:45 Intake and Output: 07/20/16 07/20/16 06:59 18:59 Intake Total 1852 Output Total 3725 Balance -1873 - Medications Medications: Current Medications Albuterol/Ipratropium (Duoneb 3 Mg/0.5 Mg (3 Ml) Ud) 3 ml IH [id number] [facility] Last Admin: 07/20/16 13:52 Dose: 3 ml Ascorbic Acid (Vitamin C 500 Mg Tab) 500 mg PO DAILY [facility] Last Admin: 07/20/16 11:00 Dose: 500 mg Bacitracin (Bacitracin) 1 ea TOP DAILY [facility] Last Admin: 07/20/16 11:00 Dose: 1 ea Bisacodyl (Dulcolax) 10 mg RC DAILY [facility] Last Admin: 07/20/16 11:04 Dose: Not Given Hydralazine HCl (Apresoline) 10 mg IVP Q6 PRN PRN Reason: FOR SBP>170 & Diastolic>100 Ceftriaxone Sodium (Rocephin 2 Gm Ivpb) 100 mls @ 100 mls/hr IVPB Q12 [facility] PRN Reason: Protocol Stop: 08/08/16 10:01 Last Admin: 07/20/16 11:00 Dose: 100 mls/hr Dextrose/Sodium Chloride (Dextrose 5%/0.9% Ns 1000 Ml) 1,000 mls @ 100 mls/hr IV .Q10H [facility] Last Admin: 07/20/16 04:12 Dose: Not Given Heparin Sodium/Sodium Chloride (Heparin 28624 Units/250ml 1/2 Normal Saline) 250 mls @ 24.351 mls/hr IV .[id number] PRN; Protocol; 17 UNITS/KG/HR PRN Reason: ADJUST RATE PER PROTOCOL Last Admin: 07/20/16 14:01 Dose: 24.3 mls/hr Metoclopramide HCl (Reglan) 10 mg IVP Q6 [facility] Last Admin: 07/20/16 14:00 Dose: 10 mg Metoprolol Tartrate (Lopressor) 25 mg PO BID [facility] Last Admin: 07/20/16 11:01 Dose: 25 mg Multivitamins/Minerals (Therapeutic-M Tab) 1 tab PO DAILY [facility] Last Admin: 07/20/16 11:00 Dose: 1 tab Nicotine (Nicoderm Cq) 1 patch TD DAILY [facility] Last Admin: 07/20/16 11:04 Dose: Not Given Ondansetron HCl (Zofran Inj) 4 mg IVP Q8H PRN PRN Reason: Nausea/Vomiting Last Admin: 07/16/16 02:02 Dose: 4 mg Pantoprazole Sodium (Protonix Inj) 40 mg IVP Q12 [facility] Last Admin: 07/20/16 11:00 Dose: 40 mg Petrolatum (Desitin Maximum Strength Topical 40% Oint) 0.1 gm TOP BID [facility] Last Admin: 07/20/16 11:04 Dose: 1 appl Tramadol HCl (Ultram) 50 mg PO TID PRN PRN Reason: Pain, severe (8-10) Last Admin: 07/20/16 03:04 Dose: 50 mg Zinc Sulfate (Zinc Sulfate 220 Mg Cap) 220 mg PO DAILY [facility] Last Admin: 07/20/16 11:00 Dose: 220 mg - Labs Labs: 07/20/16 06:41 07/20/16 06:41 PT 10.8 Seconds (9.9-11.8) 07/09/16 21:30 INR 1.00 (0.93-1.08) 07/09/16 21:30 APTT 56.8 Seconds (23.7-30.8) H 07/20/16 06:41 - Constitutional Appears: Well, No Acute Distress - Head Exam Head Exam: ATRAUMATIC, NORMAL INSPECTION, NORMOCEPHALIC - Eye Exam Eye Exam: EOMI, Normal appearance. absent: Scleral icterus Pupil Exam: PERRL - ENT Exam ENT Exam: Mucous Membranes Moist - Neck Exam Neck Exam: Full ROM - Respiratory Exam Respiratory Exam: Clear to Ausculation Bilateral, NORMAL BREATHING PATTERN. absent: Wheezes - Cardiovascular Exam Cardiovascular Exam: REGULAR RHYTHM, RRR, +S1, +S2. absent: JVD - GI/Abdominal Exam GI & Abdominal Exam: Distended, Rigid. absent: Guarding, Tenderness, Rebound Additional comments: moderately distended abdomen - Neurological Exam Neurological Exam: Alert, Awake, Oriented x3 - Psychiatric Exam Psychiatric exam: Normal Affect, Normal Mood - Skin Skin Exam: Dry, Intact, Normal Color, Warm Assessment and Plan - Assessment and Plan (Free Text) Assessment: 51M w. spinal abscess s/p T1-T4 laminectomy w. subsequent neurogenic bowel vs. ileus -NGT discontinued yesterday. Patient tolerating sips of CLD. Having BMs -Avoid narcotics -monitor electrolytes and replete as needed -no acute plans for surgery. Will continue to monitor Discussed case with Dr. Azar Cash PGY1 surgery pager: [phone]
[2016-07-21] MEDS: Dextrose 5%/0.9% NS 1,000 ML IV SCH ×3 (01:17→21:39)
[2016-07-21] MEDS: Albuterol-Ipratrop 3 mg / 0.5 (3 ml) UD IH SCH ×4 (01:32→20:36)
[2016-07-21 07:52] LABS: BASO # 0.05 K/mm3 (0.0-2.0); BASO % 1.1 % (0.0-3.0); EOS # 0.1 (0.0-0.7); EOS % 3.1 % (1.5-5.0); GRAN # 2.57 (1.4-6.5); GRAN % 56.4 % (50.0-68.0); HEMOGLOBIN 10.5 gm/dL (14.0-18.0); LYMPH # 1.2 (1.2-3.4); LYMPH % 26.5 % (22.0-35.0); MEAN CELL VOLUME 91.6 fL (80.0-105.0); MEAN CORPUSCULAR HEMOGLOBIN 30.4 pg (25.0-35.0); MEAN CORPUSCULAR HGB CONC 33.2 g/dl (31.0-37.0); MEAN PLATELET VOLUME 12.8 fl (7.0-11.0); MONO # 0.6 (0.1-0.6); MONO % 12.9 % (1.0-6.0); PLATELET COUNT 170 10^3/uL (120.0-450.0); RBC 3.45 10^6/uL (3.5-6.1); RED CELL DISTRIBUTION WIDTH 13.7 % (11.5-14.5); WHITE BLOOD COUNT 4.6 10^3/ul (4.5-11.0)
--- NOTE | 2016-07-21 08:29 | CP.PCM.PN ---
Subjective - Date & Time of Evaluation Date of Evaluation: 07/21/16 Time of Evaluation: 09:10 - Subjective Subjective: General Surgery Progress Note Dr. Askew This 51M was seen and examined by me this AM at bedside. He reports no acute events overnight. He is passing gas and moving his bowels. He reports momentary episodes of return of sensation. He denies fevers, chills, chest pain, nausea, vomiting diarrhea. Objective - Vital Signs/Intake and Output Vital Signs (last 24 hours): Temp Pulse Resp BP Pulse Ox 98.2 F 63 20 117/70 97 07/21/16 06:00 07/21/16 06:00 07/21/16 06:00 07/21/16 06:00 07/21/16 06:00 Intake and Output: 07/21/16 07/21/16 06:59 18:59 Intake Total 2092 Output Total 2300 Balance -208 - Medications Medications: Current Medications Albuterol/Ipratropium (Duoneb 3 Mg/0.5 Mg (3 Ml) Ud) 3 ml IH [id number] [facility] Last Admin: 07/21/16 07:55 Dose: 3 ml Ascorbic Acid (Vitamin C 500 Mg Tab) 500 mg PO DAILY [facility] Last Admin: 07/20/16 11:00 Dose: 500 mg Bacitracin (Bacitracin) 1 ea TOP DAILY [facility] Last Admin: 07/20/16 11:00 Dose: 1 ea Bisacodyl (Dulcolax) 10 mg RC DAILY [facility] Last Admin: 07/20/16 11:04 Dose: Not Given Bisacodyl (Dulcolax) 10 mg RC Q8H PRN PRN Reason: Constipation Hydralazine HCl (Apresoline) 10 mg IVP Q6 PRN PRN Reason: FOR SBP>170 & Diastolic>100 Ceftriaxone Sodium (Rocephin 2 Gm Ivpb) 100 mls @ 100 mls/hr IVPB Q12 [facility] PRN Reason: Protocol Stop: 08/08/16 10:01 Last Admin: 07/20/16 21:57 Dose: 100 mls/hr Dextrose/Sodium Chloride (Dextrose 5%/0.9% Ns 1000 Ml) 1,000 mls @ 100 mls/hr IV .Q10H [facility] Last Admin: 07/21/16 01:17 Dose: Not Given Heparin Sodium/Sodium Chloride (Heparin 29534 Units/250ml 1/2 Normal Saline) 250 mls @ 24.351 mls/hr IV .[id number] PRN; Protocol; 17 UNITS/KG/HR PRN Reason: ADJUST RATE PER PROTOCOL Last Admin: 07/20/16 23:52 Dose: 24.3 mls/hr Metoclopramide HCl (Reglan) 10 mg IVP Q6 [facility] Last Admin: 07/21/16 05:14 Dose: 10 mg Metoprolol Tartrate (Lopressor) 25 mg PO BID [facility] Last Admin: 07/20/16 17:35 Dose: 25 mg Multivitamins/Minerals (Therapeutic-M Tab) 1 tab PO DAILY [facility] Last Admin: 07/20/16 11:00 Dose: 1 tab Nicotine (Nicoderm Cq) 1 patch TD DAILY [facility] Last Admin: 07/20/16 11:04 Dose: Not Given Ondansetron HCl (Zofran Inj) 4 mg IVP Q8H PRN PRN Reason: Nausea/Vomiting Last Admin: 07/16/16 02:02 Dose: 4 mg Pantoprazole Sodium (Protonix Inj) 40 mg IVP Q12 [facility] Last Admin: 07/20/16 21:57 Dose: 40 mg Petrolatum (Desitin Maximum Strength Topical 40% Oint) 0.1 gm TOP BID [facility] Last Admin: 07/20/16 17:36 Dose: 1 appl Tramadol HCl (Ultram) 50 mg PO TID PRN PRN Reason: Pain, severe (8-10) Last Admin: 07/20/16 23:49 Dose: 50 mg Zinc Sulfate (Zinc Sulfate 220 Mg Cap) 220 mg PO DAILY [facility] Last Admin: 07/20/16 11:00 Dose: 220 mg - Labs Labs: 07/21/16 07:30 07/20/16 06:41 PT 10.8 Seconds (9.9-11.8) 07/09/16 21:30 INR 1.00 (0.93-1.08) 07/09/16 21:30 APTT 56.8 Seconds (23.7-30.8) H 07/20/16 06:41 - Constitutional Appears: Non-toxic, No Acute Distress - Head Exam Head Exam: ATRAUMATIC, NORMOCEPHALIC - Eye Exam Eye Exam: EOMI, Normal appearance - ENT Exam ENT Exam: Mucous Membranes Moist - Respiratory Exam Respiratory Exam: NORMAL BREATHING PATTERN - Cardiovascular Exam Cardiovascular Exam: +S1, +S2 - GI/Abdominal Exam GI & Abdominal Exam: Distended, Soft. absent: Firm, Guarding, Rigid, Tenderness - Neurological Exam Neurological Exam: Alert, Awake - Psychiatric Exam Psychiatric exam: Normal Affect, Normal Mood - Skin Skin Exam: Dry, Intact Assessment and Plan - Assessment and Plan (Free Text) Assessment: This is a 51M who is POD11 (07/07) emergent decompressing laminectomy T2-4 with residual neurogenic bladder and neurogenic paralytic ileus. VSS, Hgb 10.5 Advance Diet to puree Serial Abdominal Exams Monitor output No surgical plans at this time Continue management per primary team D/W Dr. Azar Shah PGY-6
[2016-07-21 08:59] LABS: ALB/GLOB RATIO 0.9 (1.1-1.8); ALBUMIN 3.2 g/dL (3.0-4.8); ALT/SGPT 64 U/L (7-56); AST/SGOT 36 U/L (15-59); BLOOD UREA NITROGEN 10 mg/dL (7-21); CALCIUM 8.9 mg/dL (8.4-10.5); GFR AFRICAN-AMERICAN > 60; GFR NON-AFRICAN AMERICAN > 60
[2016-07-21] MEDS: Bacitracin 500 Units/gm Oint Foilpak UD TOP SCH (09:38)
[2016-07-21] MEDS: Multivitamin With Minerals Tab PO SCH (09:39)
[2016-07-21] MEDS: Zinc Oxide Topical 40% Oint (Desitin) TOP SCH ×2 (09:39→18:03)
--- NOTE | 2016-07-21 09:52 | CP.PCM.PN ---
<Keri Guzman - Last Filed: 07/21/16 11:57> Subjective - Date & Time of Evaluation Date of Evaluation: 07/21/16 Time of Evaluation: 09:49 - Subjective Subjective: HOSPITALIST PROGRESS NOTE Pt is seen and examined at bedside. Per nurse, 1 BM yesterday afternoon. Pt tolerating CLD. Denies having any N/V, fevers or chills, Cp, SOB. Patient c/o of bruise/skin irritation in lateral part of right arm. States that he was "working out" yesterday and then he noticed it. Denies having any pain at site of bruise. Objective - Vital Signs/Intake and Output Vital Signs (last 24 hours): Temp Pulse Resp BP Pulse Ox 98.2 F 63 20 152/69 H 97 07/21/16 06:00 07/21/16 06:00 07/21/16 06:00 07/21/16 09:43 07/21/16 06:00 Intake and Output: 07/21/16 07/21/16 06:59 18:59 Intake Total 2092 Output Total 2300 Balance -208 - Medications Medications: Current Medications Albuterol/Ipratropium (Duoneb 3 Mg/0.5 Mg (3 Ml) Ud) 3 ml IH [id number] [facility] Last Admin: 07/21/16 07:55 Dose: 3 ml Ascorbic Acid (Vitamin C 500 Mg Tab) 500 mg PO DAILY [facility] Last Admin: 07/21/16 09:39 Dose: 500 mg Bacitracin (Bacitracin) 1 ea TOP DAILY [facility] Last Admin: 07/21/16 09:38 Dose: 1 ea Bisacodyl (Dulcolax) 10 mg RC DAILY [facility] Last Admin: 07/21/16 09:39 Dose: 10 mg Bisacodyl (Dulcolax) 10 mg RC Q8H PRN PRN Reason: Constipation Hydralazine HCl (Apresoline) 10 mg IVP Q6 PRN PRN Reason: FOR SBP>170 & Diastolic>100 Ceftriaxone Sodium (Rocephin 2 Gm Ivpb) 100 mls @ 100 mls/hr IVPB Q12 [facility] PRN Reason: Protocol Stop: 08/08/16 10:01 Last Admin: 07/21/16 09:39 Dose: 100 mls/hr Dextrose/Sodium Chloride (Dextrose 5%/0.9% Ns 1000 Ml) 1,000 mls @ 100 mls/hr IV .Q10H [facility] Last Admin: 07/21/16 01:17 Dose: Not Given Heparin Sodium/Sodium Chloride (Heparin 30560 Units/250ml 1/2 Normal Saline) 250 mls @ 24.351 mls/hr IV .[id number] PRN; Protocol; 17 UNITS/KG/HR PRN Reason: ADJUST RATE PER PROTOCOL Last Admin: 07/20/16 23:52 Dose: 24.3 mls/hr Metoclopramide HCl (Reglan) 10 mg IVP Q6 [facility] Last Admin: 07/21/16 05:14 Dose: 10 mg Metoprolol Tartrate (Lopressor) 25 mg PO BID [facility] Last Admin: 07/21/16 09:43 Dose: 25 mg Multivitamins/Minerals (Therapeutic-M Tab) 1 tab PO DAILY [facility] Last Admin: 07/21/16 09:39 Dose: 1 tab Nicotine (Nicoderm Cq) 1 patch TD DAILY [facility] Last Admin: 07/21/16 09:43 Dose: 1 patch Ondansetron HCl (Zofran Inj) 4 mg IVP Q8H PRN PRN Reason: Nausea/Vomiting Last Admin: 07/16/16 02:02 Dose: 4 mg Pantoprazole Sodium (Protonix Inj) 40 mg IVP Q12 [facility] Last Admin: 07/21/16 09:37 Dose: 40 mg Petrolatum (Desitin Maximum Strength Topical 40% Oint) 0.1 gm TOP BID [facility] Last Admin: 07/21/16 09:39 Dose: 1 appl Tramadol HCl (Ultram) 50 mg PO TID PRN PRN Reason: Pain, severe (8-10) Last Admin: 07/21/16 09:46 Dose: 50 mg Zinc Sulfate (Zinc Sulfate 220 Mg Cap) 220 mg PO DAILY [facility] Last Admin: 07/21/16 09:39 Dose: 220 mg - Labs Labs: 07/21/16 07:30 07/21/16 07:30 PT 10.8 Seconds (9.9-11.8) 07/09/16 21:30 INR 1.00 (0.93-1.08) 07/09/16 21:30 APTT 70.4 Seconds (23.7-30.8) H* 07/21/16 07:30 - Constitutional Appears: Non-toxic, No Acute Distress - Head Exam Head Exam: ATRAUMATIC - Eye Exam Eye Exam: EOMI - ENT Exam ENT Exam: Mucous Membranes Moist - Respiratory Exam Respiratory Exam: Rhonchi. absent: Rales, Wheezes - Cardiovascular Exam Cardiovascular Exam: REGULAR RHYTHM, RRR, +S1, +S2. absent: Gallop, Rubs, Murmur - GI/Abdominal Exam GI & Abdominal Exam: Distended, Soft, Hypoactive Bowel Sounds. absent: Firm, Guarding, Rigid, Tenderness - Extremities Exam Extremities Exam: absent: Calf Tenderness, Pedal Edema - Neurological Exam Neurological Exam: Alert, Awake, Oriented x3 - Psychiatric Exam Psychiatric exam: Normal Affect, Normal Mood - Skin Skin Exam: Dry, Intact, Normal Color, Warm Assessment and Plan - Assessment and Plan (Free Text) Assessment: 51 year old male with no significant past medical history is s/p T2-T4 lamenectomy POD #7 US of LE showed R LE DVT s/p IVC filter Plan: 1. Epidural space abscess s/p lamenectomy T2-T4 POD #7 -Rocephin per ID recs. for 4-6 weeks -Tramadol prn -ID is consulted Workup: -Wound cultures grew strep pneumo -Pathology shows fragments of bone with no metastatic disease. See report for full details -CT of chest/abd/pelvis is negative for malignancy -MRI c/ and w/o contrast on 07/07 prior to procedure showed fluid collection in ventral epidural space from T1-T5 with cord compression and obliteration of subarachinoid space; abnormal signal in T3&T4 which may represent osteomyelitis vs. metastatic dz; no disc herniation, spinal canal stenosis or neuroforaminal narrowing. Lumbar spine MRI was negative for cauda equina. Please see full reports for details. 2. Paralysis in LE - Aggressive PT/OT - boots are in place and pt is being turned to prevent stress ulcers - Will continue to monitor. 3. Neurogenic bowel vs. ileus - Diet advanced to full liquid - Continue bowel regimen of Reglan 10 mg IV ACHS, Miralax, Dulcolax - Surgery is consulted. Workup: - CT abd/pelvis showed partial SBO and small pelvic free air. 5. Neurogenic bladder - Haque in place - Urology is consulted. 6. R LE DVT - IVC filter placed - Pt is on heparin drip and closely monitored for bleeding - Heme/onc is consulted Workup: - 07/06 US of LE showed thrombus in right common and proximal femoral vein 7. Atypical CP - Acs ruled out with negative EKG and trops - Cardio is consulted Workup: - Echo showed EF of 63.5%, normal LV, trace AR, MR and TR - Hgb A1c is 6.3 8. Iron deficiency anemia - Will cont to monitor at this time. H&H is stable Workup: - Iron 35 (low), TIBC 325 (normal), Ferritin 11 (low), Vit B12 327 (Normal), folate 7.8 (normal) 9. pressure ulcer on Right gluteal region - air mattress - continue to reposition q2 - multivit, zinv, vitamin C PO ordered - Wound care pending 10. LOLA - Resolved - District Plant Supervisor, Dr. Buckner is consulted 10. Prophylaxis - Protonix - heparin drip Dispo: Pt uninsured. Not eligible for rehab facility. Not qualify for [facility] bc of income above $[phone] Case discussed with attending Dr. Marc <Tutu Marc - Last Filed: 07/21/16 17:08> Objective - Vital Signs/Intake and Output Vital Signs (last 24 hours): Temp Pulse Resp BP Pulse Ox 98.3 F 55 L 19 135/90 97 07/21/16 12:00 07/21/16 14:00 07/21/16 12:00 07/21/16 12:00 07/21/16 06:00 Intake and Output: 07/21/16 07/21/16 06:59 18:59 Intake Total 2092 900 Output Total 2300 1000 Balance -208 -100 - Medications Medications: Current Medications Albuterol/Ipratropium (Duoneb 3 Mg/0.5 Mg (3 Ml) Ud) 3 ml IH [id number] [facility] Last Admin: 07/21/16 16:38 Dose: 3 ml Ascorbic Acid (Vitamin C 500 Mg Tab) 500 mg PO DAILY [facility] Last Admin: 07/21/16 09:39 Dose: 500 mg Bacitracin (Bacitracin) 1 ea TOP DAILY [facility] Last Admin: 07/21/16 09:38 Dose: 1 ea Bisacodyl (Dulcolax) 10 mg RC DAILY [facility] Last Admin: 07/21/16 10:48 Dose: Not Given Bisacodyl (Dulcolax) 10 mg RC Q8H PRN PRN Reason: Constipation Hydralazine HCl (Apresoline) 10 mg IVP Q6 PRN PRN Reason: FOR SBP>170 & Diastolic>100 Ceftriaxone Sodium (Rocephin 2 Gm Ivpb) 100 mls @ 100 mls/hr IVPB Q12 [facility] PRN Reason: Protocol Stop: 08/08/16 10:01 Last Admin: 07/21/16 09:39 Dose: 100 mls/hr Dextrose/Sodium Chloride (Dextrose 5%/0.9% Ns 1000 Ml) 1,000 mls @ 100 mls/hr IV .Q10H [facility] Last Admin: 07/21/16 11:37 Dose: 100 mls/hr Heparin Sodium/Sodium Chloride (Heparin 20906 Units/250ml 1/2 Normal Saline) 250 mls @ 24.351 mls/hr IV .[id number] PRN; Protocol; 17 UNITS/KG/HR PRN Reason: ADJUST RATE PER PROTOCOL Last Admin: 07/21/16 11:36 Dose: 24.3 mls/hr Metoclopramide HCl (Reglan) 10 mg IVP Q6 [facility] Last Admin: 07/21/16 12:58 Dose: Not Given Metoprolol Tartrate (Lopressor) 25 mg PO BID [facility] Last Admin: 07/21/16 09:43 Dose: 25 mg Multivitamins/Minerals (Therapeutic-M Tab) 1 tab PO DAILY [facility] Last Admin: 07/21/16 09:39 Dose: 1 tab Nicotine (Nicoderm Cq) 1 patch TD DAILY [facility] Last Admin: 07/21/16 09:43 Dose: 1 patch Ondansetron HCl (Zofran Inj) 4 mg IVP Q8H PRN PRN Reason: Nausea/Vomiting Last Admin: 07/16/16 02:02 Dose: 4 mg Pantoprazole Sodium (Protonix Inj) 40 mg IVP Q12 [facility] Last Admin: 07/21/16 09:37 Dose: 40 mg Petrolatum (Desitin Maximum Strength Topical 40% Oint) 0.1 gm TOP BID [facility] Last Admin: 07/21/16 09:39 Dose: 1 appl Tramadol HCl (Ultram) 50 mg PO TID PRN PRN Reason: Pain, severe (8-10) Last Admin: 07/21/16 09:46 Dose: 50 mg Zinc Sulfate (Zinc Sulfate 220 Mg Cap) 220 mg PO DAILY [facility] Last Admin: 07/21/16 09:39 Dose: 220 mg - Labs Labs: 07/21/16 07:30 07/21/16 07:30 PT 10.8 Seconds (9.9-11.8) 07/09/16 21:30 INR 1.00 (0.93-1.08) 07/09/16 21:30 APTT 70.4 Seconds (23.7-30.8) H* 07/21/16 07:30 Attending/Attestation - Attestation I have personally seen and examined this patient.: Yes I have fully participated in the care of the patient.: Yes I have reviewed all pertinent clinical information, including history, physical exam and plan: Yes Notes (Text): I have seen and examined patient at bedside With resident.This is a 51 year old male with history of substance abuse (snorts cocaine), tobacco, alcohol use who got admitted for evaluation of back pain and found to have epidural abscess T1- T5, osteomyelitis, urinary retention, acute RLE DVT. He underwent emergent laminectomy and epidural abscess was drained. Wound culture is growing strep pneumonia. He is on rocephin. HIV negative. Pathology showed bone fragments and bone marrow. No evidence of carcinoma. He has abdominal distention and partial bowel obstruction due to paralytic ileus. NG tube removed yesterday and he is tolerating clear liquid diet. He is on heparin drip for acute RLE DVT and is s/p IVC filter. Plan to start coumadin tomorrow. He has haque catheter for neurogenic bladder. Advised frequent turning to avoid pressure sores/continue wound care. 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 Dr Tutu Marc
--- NOTE | 2016-07-21 11:32 | PN ---
DATE: 07/21/2016 The patient is seen. His abdomen is still distended, but he is passing gas, not having bowel movemen ts. I feel he needs a bowel prepped, meaning stool softeners, and maybe Metamucil, but intermittently, a Dulcolax suppository might be productive. Certainly, no surgical intervention is planned. Trever Askew MD cc: [id number] TT: 07/21/2016 11:31:48 Confirmation # [id number] Dictation # [id number] jn
[2016-07-21] MEDS: Heparin25000 units/250ml 1/2NS 250 ML IV PRN ×2 (11:36→21:40)
--- NOTE | 2016-07-21 15:09 | PN ---
DATE: 07/21/2016 REASON FOR CONSULTATION AND FOLLOWUP: Status post spinal abscess, status post DVT, status post CPR, intubated, now successfully extubated, no evidence of acute coronary syndrome. BRIEF CLINICAL HISTORY: This is a 51-year-old male admitted with a 1-week history of chest pain radi ating to the back, found to be related to spinal abscess. Also, found DVT of the lower extremity. T he patient had spinal abscess drained, on heparin because of distention of abdomen, history of DVT. Abdomen is being treated medically. Denies any chest pain, shortness of breath, any palpitation. Co mplains of bruise on right arm, probably secondary to lying on the right side or working out. PHYSICAL EXAMINATION: VITAL SIGNS: Temperature afebrile, heart rate 86, blood pressure 135/90. HEENT: PERRLA. Extraocular muscles intact. NECK: Supple. No carotid bruits. No thyromegaly. CHEST: Clear to auscultation. HEART: S1, S2 regular. ABDOMEN: Soft. EXTREMITIES: Clubbing, cyanosis negative. BLOOD WORKUP: WBC 4.6, hemoglobin 10.5, hematocrit 31.6, platelet count 170. Sodium 134, potassium 3. , chloride 100, carbon dioxide 26, anion gap of 12, BUN 10, creatinine 0.7. IMPRESSION: Acute kidney injury, resolved, acute deep venous thrombosis, on heparin, acute abdomen, being managed medically, paraplegic, status post spinal abscess, drained, chest pain secondary to abs cess, no evidence of acute myocardial infarction, no evidence of acute coronary syndrome, troponin re shakir flat. RECOMMENDATION: Continue heparin until the p.o. is started and acute abdomen subsides, then will camila nge to p.o. Interim, we will continue rehabilitation. We will follow with you. Thank you, Dr. Marc, for providing us the opportunity in taking care of the patient. We will continu e p.r.n. hydralazine since the patient's blood pressure goes up and down. We will continue p.r.n. be cause lowest blood pressure yesterday was 117/70. He does not require antihypertensive medication. If patient continually remains elevated blood pressure, we can put clonidine patch. For now, continu e p.r.n. hydralazine. We will follow with you. No further cardiac workup is planned at this time. Thank you, Dr. Marc, for providing us the opportunity in taking care of the patient. Jarrod Barbour MD cc: [phone] TT: 07/21/2016 15:09:01 Confirmation # [id number] Dictation # [id number]
--- NOTE | 2016-07-21 18:51 | CP.PCM.PN ---
Subjective - Date & Time of Evaluation Date of Evaluation: 07/21/16 Time of Evaluation: 14:20 - Subjective Subjective: Comfortable, not in distress, afebrile, has BM. Objective - Vital Signs/Intake and Output Vital Signs (last 24 hours): Temp Pulse Resp BP Pulse Ox 98.3 F 71 19 133/75 97 07/21/16 12:00 07/21/16 17:59 07/21/16 12:00 07/21/16 17:59 07/21/16 06:00 Intake and Output: 07/21/16 07/21/16 06:59 18:59 Intake Total 2092 900 Output Total 2300 1000 Balance -208 -100 - Medications Medications: Current Medications Albuterol/Ipratropium (Duoneb 3 Mg/0.5 Mg (3 Ml) Ud) 3 ml IH [id number] [facility] Last Admin: 07/21/16 16:38 Dose: 3 ml Ascorbic Acid (Vitamin C 500 Mg Tab) 500 mg PO DAILY [facility] Last Admin: 07/21/16 09:39 Dose: 500 mg Bacitracin (Bacitracin) 1 ea TOP DAILY [facility] Last Admin: 07/21/16 09:38 Dose: 1 ea Bisacodyl (Dulcolax) 10 mg RC DAILY [facility] Last Admin: 07/21/16 10:48 Dose: Not Given Bisacodyl (Dulcolax) 10 mg RC Q8H PRN PRN Reason: Constipation Hydralazine HCl (Apresoline) 10 mg IVP Q6 PRN PRN Reason: FOR SBP>170 & Diastolic>100 Ceftriaxone Sodium (Rocephin 2 Gm Ivpb) 100 mls @ 100 mls/hr IVPB Q12 [facility] PRN Reason: Protocol Stop: 08/08/16 10:01 Last Admin: 07/21/16 09:39 Dose: 100 mls/hr Dextrose/Sodium Chloride (Dextrose 5%/0.9% Ns 1000 Ml) 1,000 mls @ 100 mls/hr IV .Q10H [facility] Last Admin: 07/21/16 11:37 Dose: 100 mls/hr Heparin Sodium/Sodium Chloride (Heparin 46653 Units/250ml 1/2 Normal Saline) 250 mls @ 24.351 mls/hr IV .[id number] PRN; Protocol; 17 UNITS/KG/HR PRN Reason: ADJUST RATE PER PROTOCOL Last Admin: 07/21/16 11:36 Dose: 24.3 mls/hr Metoclopramide HCl (Reglan) 10 mg IVP Q6 [facility] Last Admin: 07/21/16 17:59 Dose: 10 mg Metoprolol Tartrate (Lopressor) 25 mg PO BID [facility] Last Admin: 07/21/16 17:59 Dose: 25 mg Multivitamins/Minerals (Therapeutic-M Tab) 1 tab PO DAILY [facility] Last Admin: 07/21/16 09:39 Dose: 1 tab Nicotine (Nicoderm Cq) 1 patch TD DAILY [facility] Last Admin: 07/21/16 09:43 Dose: 1 patch Ondansetron HCl (Zofran Inj) 4 mg IVP Q8H PRN PRN Reason: Nausea/Vomiting Last Admin: 07/16/16 02:02 Dose: 4 mg Pantoprazole Sodium (Protonix Inj) 40 mg IVP Q12 [facility] Last Admin: 07/21/16 09:37 Dose: 40 mg Petrolatum (Desitin Maximum Strength Topical 40% Oint) 0.1 gm TOP BID [facility] Last Admin: 07/21/16 18:03 Dose: 1 appl Tramadol HCl (Ultram) 50 mg PO TID PRN PRN Reason: Pain, severe (8-10) Last Admin: 07/21/16 09:46 Dose: 50 mg Zinc Sulfate (Zinc Sulfate 220 Mg Cap) 220 mg PO DAILY [facility] Last Admin: 07/21/16 09:39 Dose: 220 mg - Labs Labs: 07/21/16 07:30 07/21/16 07:30 PT 10.8 Seconds (9.9-11.8) 07/09/16 21:30 INR 1.00 (0.93-1.08) 07/09/16 21:30 APTT 70.4 Seconds (23.7-30.8) H* 07/21/16 07:30 - Constitutional Appears: Non-toxic, No Acute Distress - Head Exam Head Exam: NORMAL INSPECTION - ENT Exam ENT Exam: Mucous Membranes Moist - Neck Exam Neck Exam: absent: Lymphadenopathy, Meningismus - Respiratory Exam Respiratory Exam: Decreased Breath Sounds - Cardiovascular Exam Cardiovascular Exam: +S1, +S2 - GI/Abdominal Exam GI & Abdominal Exam: Soft. 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
[2016-07-22] MEDS: Albuterol-Ipratrop 3 mg / 0.5 (3 ml) UD IH SCH ×4 (01:24→20:39)
--- NOTE | 2016-07-22 07:40 | CP.PCM.PN ---
<Keri Guzman - Last Filed: 07/22/16 09:56> Subjective - Date & Time of Evaluation Date of Evaluation: 07/22/16 Time of Evaluation: 07:36 - Subjective Subjective: HOSPITALIST PROGRESS NOTE Pt seen and examined at bedside. Pt had one BM overnight and is passing gas. No N/V, fevers, chills, SOB. Tolerating liquid diet. Objective - Vital Signs/Intake and Output Vital Signs (last 24 hours): Temp Pulse Resp BP Pulse Ox 98.2 F 62 19 105/69 95 07/22/16 00:01 07/22/16 00:01 07/22/16 00:01 07/22/16 00:01 07/22/16 00:01 Intake and Output: 07/22/16 07/22/16 06:59 18:59 Intake Total 180 Output Total 700 Balance -520 - Medications Medications: Current Medications Albuterol/Ipratropium (Duoneb 3 Mg/0.5 Mg (3 Ml) Ud) 3 ml IH [id number] [facility] Last Admin: 07/22/16 01:24 Dose: 3 ml Ascorbic Acid (Vitamin C 500 Mg Tab) 500 mg PO DAILY [facility] Last Admin: 07/21/16 09:39 Dose: 500 mg Bacitracin (Bacitracin) 1 ea TOP DAILY [facility] Last Admin: 07/21/16 09:38 Dose: 1 ea Bisacodyl (Dulcolax) 10 mg RC DAILY [facility] Last Admin: 07/21/16 10:48 Dose: Not Given Bisacodyl (Dulcolax) 10 mg RC Q8H PRN PRN Reason: Constipation Hydralazine HCl (Apresoline) 10 mg IVP Q6 PRN PRN Reason: FOR SBP>170 & Diastolic>100 Ceftriaxone Sodium (Rocephin 2 Gm Ivpb) 100 mls @ 100 mls/hr IVPB Q12 [facility] PRN Reason: Protocol Stop: 08/08/16 10:01 Last Admin: 07/21/16 21:38 Dose: 100 mls/hr Dextrose/Sodium Chloride (Dextrose 5%/0.9% Ns 1000 Ml) 1,000 mls @ 100 mls/hr IV .Q10H [facility] Last Admin: 07/21/16 21:39 Dose: 100 mls/hr Heparin Sodium/Sodium Chloride (Heparin 83144 Units/250ml 1/2 Normal Saline) 250 mls @ 24.351 mls/hr IV .[id number] PRN; Protocol; 17 UNITS/KG/HR PRN Reason: ADJUST RATE PER PROTOCOL Last Admin: 07/21/16 21:40 Dose: 16.83 units/kg/hr, 24.3 mls/hr Metoclopramide HCl (Reglan) 10 mg IVP Q6 [facility] Last Admin: 07/21/16 23:46 Dose: 10 mg Metoprolol Tartrate (Lopressor) 25 mg PO BID [facility] Last Admin: 07/21/16 17:59 Dose: 25 mg Multivitamins/Minerals (Therapeutic-M Tab) 1 tab PO DAILY [facility] Last Admin: 07/21/16 09:39 Dose: 1 tab Nicotine (Nicoderm Cq) 1 patch TD DAILY [facility] Last Admin: 07/21/16 09:43 Dose: 1 patch Ondansetron HCl (Zofran Inj) 4 mg IVP Q8H PRN PRN Reason: Nausea/Vomiting Last Admin: 07/16/16 02:02 Dose: 4 mg Pantoprazole Sodium (Protonix Inj) 40 mg IVP Q12 [facility] Last Admin: 07/21/16 21:38 Dose: 40 mg Petrolatum (Desitin Maximum Strength Topical 40% Oint) 0.1 gm TOP BID [facility] Last Admin: 07/21/16 18:03 Dose: 1 appl Tramadol HCl (Ultram) 50 mg PO TID PRN PRN Reason: Pain, severe (8-10) Last Admin: 07/22/16 00:17 Dose: 50 mg Zinc Sulfate (Zinc Sulfate 220 Mg Cap) 220 mg PO DAILY [facility] Last Admin: 07/21/16 09:39 Dose: 220 mg - Labs Labs: 07/21/16 07:30 07/21/16 07:30 PT 10.8 Seconds (9.9-11.8) 07/09/16 21:30 INR 1.00 (0.93-1.08) 07/09/16 21:30 APTT 70.4 Seconds (23.7-30.8) H* 07/21/16 07:30 - Constitutional Appears: Non-toxic, No Acute Distress - Head Exam Head Exam: ATRAUMATIC - Eye Exam Eye Exam: EOMI Pupil Exam: PERRL - ENT Exam ENT Exam: Mucous Membranes Moist - Respiratory Exam Respiratory Exam: Rhonchi (diffusely but improving ). absent: Rales, Wheezes - Cardiovascular Exam Cardiovascular Exam: REGULAR RHYTHM, +S1, +S2. absent: Gallop, Rubs, Murmur - GI/Abdominal Exam GI & Abdominal Exam: Distended, Soft, Normal Bowel Sounds. absent: Firm, Guarding, Rigid, Tenderness - Extremities Exam Extremities Exam: absent: Pedal Edema, Tenderness - Neurological Exam Neurological Exam: Alert, Awake, Oriented x3 - Psychiatric Exam Psychiatric exam: Normal Affect, Normal Mood - Skin Skin Exam: Dry, Intact, Normal Color, Warm Assessment and Plan - Assessment and Plan (Free Text) Assessment: 51 year old male with no significant past medical history is s/p T2-T4 lamenectomy on 07/07/16 US of LE showed R LE DVT s/p IVC filter Plan: 1. 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 for 4-6 weeks -Tramadol prn -ID is consulted Workup: -Wound cultures grew strep pneumo -Pathology shows fragments of bone with no metastatic disease. See report for full details -CT of chest/abd/pelvis is negative for malignancy -MRI c/ and w/o contrast on 07/07 prior to procedure showed fluid collection in ventral epidural space from T1-T5 with cord compression and obliteration of subarachinoid space; abnormal signal in T3&T4 which may represent osteomyelitis vs. metastatic dz; no disc herniation, spinal canal stenosis or neuroforaminal narrowing. Lumbar spine MRI was negative for cauda equina. Please see full reports for details. 2. Paralysis in LE - Aggressive PT/OT - boots are in place and pt is being turned to prevent stress ulcers - Will continue to monitor. 3. Neurogenic bowel vs. ileus - Will advance diet to pureed. - Continue bowel regimen of Reglan 10 mg IV ACHS, Miralax, Dulcolax - Surgery is consulted. Workup: - CT abd/pelvis showed partial SBO and small pelvic free air. 5. Neurogenic bladder - Haque in place - Urology is consulted. 6. R LE DVT - IVC filter placed - Pt is on heparin drip and closely monitored for bleeding. Will hold off on starting coumadin right now. - Heme/onc is consulted. Workup: - 07/06 US of LE showed thrombus in right common and proximal femoral vein 7. Atypical CP - Acs ruled out with negative EKG and trops - Cardio is consulted Workup: - Echo showed EF of 63.5%, normal LV, trace AR, MR and TR - Hgb A1c is 6.3 8. Iron deficiency anemia - Will cont to monitor at this time. H&H is stable Workup: - Iron 35 (low), TIBC 325 (normal), Ferritin 11 (low), Vit B12 327 (Normal), folate 7.8 (normal) 9. pressure ulcer on sacrum and buttock - air mattress - continue to reposition q2 - multivit, zinv, vitamin C PO ordered - Wound care pending 10. LOLA - Resolved - [employer], Dr. Buckner is consulted 10. Prophylaxis - Protonix - heparin drip Dispo: Pt uninsured. Not eligible for rehab facility. Not qualify for [facility] bc of income above $[phone] Case discussed with attending Dr. Marc <Tutu Marc B - Last Filed: 07/22/16 16:31> Objective - Vital Signs/Intake and Output Vital Signs (last 24 hours): Temp Pulse Resp BP Pulse Ox 97.4 F L 67 20 155/80 H 95 07/22/16 12:00 07/22/16 12:00 07/22/16 12:00 07/22/16 12:00 07/22/16 00:01 Intake and Output: 07/22/16 07/22/16 06:59 18:59 Intake Total 180 Output Total 700 Balance -520 - Medications Medications: Current Medications Albuterol/Ipratropium (Duoneb 3 Mg/0.5 Mg (3 Ml) Ud) 3 ml IH [id number] [facility] Last Admin: 07/22/16 13:17 Dose: 3 ml Ascorbic Acid (Vitamin C 500 Mg Tab) 500 mg PO DAILY [facility] Last Admin: 07/22/16 09:31 Dose: 500 mg Bacitracin (Bacitracin) 1 ea TOP DAILY [facility] Last Admin: 07/22/16 09:31 Dose: 1 ea Bisacodyl (Dulcolax) 10 mg RC DAILY [facility] Last Admin: 07/22/16 09:31 Dose: 10 mg Bisacodyl (Dulcolax) 10 mg RC Q8H PRN PRN Reason: Constipation Hydralazine HCl (Apresoline) 10 mg IVP Q6 PRN PRN Reason: FOR SBP>170 & Diastolic>100 Ceftriaxone Sodium (Rocephin 2 Gm Ivpb) 100 mls @ 100 mls/hr IVPB Q12 [facility] PRN Reason: Protocol Stop: 08/08/16 10:01 Last Admin: 07/22/16 09:31 Dose: 100 mls/hr Dextrose/Sodium Chloride (Dextrose 5%/0.9% Ns 1000 Ml) 1,000 mls @ 100 mls/hr IV .Q10H [facility] Last Admin: 07/22/16 13:10 Dose: 100 mls/hr Heparin Sodium/Sodium Chloride (Heparin 36081 Units/250ml 1/2 Normal Saline) 250 mls @ 24.351 mls/hr IV .[id number] PRN; Protocol; 17 UNITS/KG/HR PRN Reason: ADJUST RATE PER PROTOCOL Last Admin: 07/22/16 09:48 Dose: 16.83 units/kg/hr, 24.3 mls/hr Metoclopramide HCl (Reglan) 10 mg IVP Q6 [facility] Last Admin: 07/22/16 13:10 Dose: 10 mg Metoprolol Tartrate (Lopressor) 25 mg PO BID [facility] Last Admin: 07/22/16 09:31 Dose: 25 mg Multivitamins/Minerals (Therapeutic-M Tab) 1 tab PO DAILY [facility] Last Admin: 07/22/16 09:31 Dose: 1 tab Nicotine (Nicoderm Cq) 1 patch TD DAILY [facility] Last Admin: 07/22/16 09:31 Dose: 1 patch Ondansetron HCl (Zofran Inj) 4 mg IVP Q8H PRN PRN Reason: Nausea/Vomiting Last Admin: 07/16/16 02:02 Dose: 4 mg Pantoprazole Sodium (Protonix Inj) 40 mg IVP Q12 [facility] Last Admin: 07/22/16 09:30 Dose: 40 mg Petrolatum (Desitin Maximum Strength Topical 40% Oint) 0.1 gm TOP BID [facility] Last Admin: 07/22/16 09:33 Dose: 1 appl Tramadol HCl (Ultram) 50 mg PO TID PRN PRN Reason: Pain, severe (8-10) Last Admin: 07/22/16 00:17 Dose: 50 mg Zinc Sulfate (Zinc Sulfate 220 Mg Cap) 220 mg PO DAILY [facility] Last Admin: 07/22/16 09:32 Dose: 220 mg - Labs Labs: 07/22/16 07:25 07/22/16 07:25 PT 10.8 Seconds (9.9-11.8) 07/09/16 21:30 INR 1.00 (0.93-1.08) 07/09/16 21:30 APTT 58.8 Seconds (23.7-30.8) H 07/22/16 07:25 Attending/Attestation - Attestation I have personally seen and examined this patient.: Yes I have fully participated in the care of the patient.: Yes I have reviewed all pertinent clinical information, including history, physical exam and plan: Yes Notes (Text): I have seen and examined patient at bedside With resident.This is a 51 year old male with history of substance abuse (snorts cocaine), tobacco, alcohol use who got admitted for evaluation of back pain and found to have epidural abscess T1- T5, osteomyelitis, urinary retention, acute RLE DVT. He underwent emergent laminectomy and epidural abscess was drained. Wound culture is growing strep pneumonia. He is on rocephin. HIV negative. Pathology showed bone fragments and bone marrow. No evidence of carcinoma. He has abdominal distention and partial bowel obstruction due to paralytic ileus. His diet was advanced to puree today as per surgery. Patient reports one BM yesterday however his abdomen appears to be more distended. He is on heparin drip for acute RLE DVT and is s/p IVC filter. Will not start coumadin today as his abdomen is more distended. He has haque catheter for neurogenic bladder. Advised frequent turning to avoid pressure sores/continue wound care. Dr Tutu Marc
[2016-07-22 08:15] LABS: ALB/GLOB RATIO 0.9 (1.1-1.8); ALBUMIN 3.4 g/dL (3.0-4.8); ALT/SGPT 63 U/L (7-56); AST/SGOT 36 U/L (15-59); BLOOD UREA NITROGEN 11 mg/dL (7-21); CALCIUM 9.1 mg/dL (8.4-10.5); GFR AFRICAN-AMERICAN > 60; GFR NON-AFRICAN AMERICAN > 60
[2016-07-22 08:20] LABS: BASO # 0.04 K/mm3 (0.0-2.0); EOS # 0.1 (0.0-0.7); EOS % 2.7 % (1.5-5.0); GRAN # 2.26 (1.4-6.5); GRAN % 54.6 % (50.0-68.0); HEMOGLOBIN 11.1 gm/dL (14.0-18.0); LYMPH # 1.1 (1.2-3.4); LYMPH % 26.4 % (22.0-35.0); MEAN CELL VOLUME 91.3 fL (80.0-105.0); MEAN CORPUSCULAR HEMOGLOBIN 30.2 pg (25.0-35.0); MEAN PLATELET VOLUME 12.7 fl (7.0-11.0); MONO # 0.6 (0.1-0.6); MONO % 15.3 % (1.0-6.0); PLATELET COUNT 186 10^3/uL (120.0-450.0); RBC 3.68 10^6/uL (3.5-6.1); WHITE BLOOD COUNT 4.1 10^3/ul (4.5-11.0)
--- NOTE | 2016-07-22 08:42 | CP.PCM.PN ---
Subjective - Date & Time of Evaluation Date of Evaluation: 07/22/16 Time of Evaluation: 07:39 - Subjective Subjective: General Surgery Progress Note Dr. Askew This 51M was seen and examined by me this AM at bedside. He reports no acute events overnight. He is passing gas and moving his bowels when he is rotated on his side. He reports that his abdominal distention is his baseline since before his hospitalization. He denies fevers, chills, chest pain, nausea, vomiting diarrhea. Objective - Vital Signs/Intake and Output Vital Signs (last 24 hours): Temp Pulse Resp BP Pulse Ox 98.2 F 62 19 105/69 95 07/22/16 00:01 07/22/16 00:01 07/22/16 00:01 07/22/16 00:01 07/22/16 00:01 Intake and Output: 07/22/16 07/22/16 06:59 18:59 Intake Total 180 Output Total 700 Balance -520 - Medications Medications: Current Medications Albuterol/Ipratropium (Duoneb 3 Mg/0.5 Mg (3 Ml) Ud) 3 ml IH [id number] [facility] Last Admin: 07/22/16 08:22 Dose: 3 ml Ascorbic Acid (Vitamin C 500 Mg Tab) 500 mg PO DAILY [facility] Last Admin: 07/21/16 09:39 Dose: 500 mg Bacitracin (Bacitracin) 1 ea TOP DAILY [facility] Last Admin: 07/21/16 09:38 Dose: 1 ea Bisacodyl (Dulcolax) 10 mg RC DAILY [facility] Last Admin: 07/21/16 10:48 Dose: Not Given Bisacodyl (Dulcolax) 10 mg RC Q8H PRN PRN Reason: Constipation Hydralazine HCl (Apresoline) 10 mg IVP Q6 PRN PRN Reason: FOR SBP>170 & Diastolic>100 Ceftriaxone Sodium (Rocephin 2 Gm Ivpb) 100 mls @ 100 mls/hr IVPB Q12 DONAL PRN Reason: Protocol Stop: 08/08/16 10:01 Last Admin: 07/21/16 21:38 Dose: 100 mls/hr Dextrose/Sodium Chloride (Dextrose 5%/0.9% Ns 1000 Ml) 1,000 mls @ 100 mls/hr IV .Q10H [facility] Last Admin: 07/21/16 21:39 Dose: 100 mls/hr Heparin Sodium/Sodium Chloride (Heparin 25730 Units/250ml 1/2 Normal Saline) 250 mls @ 24.351 mls/hr IV .[id number] PRN; Protocol; 17 UNITS/KG/HR PRN Reason: ADJUST RATE PER PROTOCOL Last Admin: 07/21/16 21:40 Dose: 16.83 units/kg/hr, 24.3 mls/hr Metoclopramide HCl (Reglan) 10 mg IVP Q6 [facility] Last Admin: 07/21/16 23:46 Dose: 10 mg Metoprolol Tartrate (Lopressor) 25 mg PO BID [facility] Last Admin: 07/21/16 17:59 Dose: 25 mg Multivitamins/Minerals (Therapeutic-M Tab) 1 tab PO DAILY [facility] Last Admin: 07/21/16 09:39 Dose: 1 tab Nicotine (Nicoderm Cq) 1 patch TD DAILY [facility] Last Admin: 07/21/16 09:43 Dose: 1 patch Ondansetron HCl (Zofran Inj) 4 mg IVP Q8H PRN PRN Reason: Nausea/Vomiting Last Admin: 07/16/16 02:02 Dose: 4 mg Pantoprazole Sodium (Protonix Inj) 40 mg IVP Q12 [facility] Last Admin: 07/21/16 21:38 Dose: 40 mg Petrolatum (Desitin Maximum Strength Topical 40% Oint) 0.1 gm TOP BID [facility] Last Admin: 07/21/16 18:03 Dose: 1 appl Tramadol HCl (Ultram) 50 mg PO TID PRN PRN Reason: Pain, severe (8-10) Last Admin: 07/22/16 00:17 Dose: 50 mg Zinc Sulfate (Zinc Sulfate 220 Mg Cap) 220 mg PO DAILY [facility] Last Admin: 07/21/16 09:39 Dose: 220 mg - Labs Labs: 07/22/16 07:25 07/22/16 07:25 PT 10.8 Seconds (9.9-11.8) 07/09/16 21:30 INR 1.00 (0.93-1.08) 07/09/16 21:30 APTT 58.8 Seconds (23.7-30.8) H 07/22/16 07:25 - Constitutional Appears: Non-toxic, No Acute Distress - Head Exam Head Exam: ATRAUMATIC, NORMOCEPHALIC - Eye Exam Eye Exam: EOMI, Normal appearance - ENT Exam ENT Exam: Mucous Membranes Moist - Respiratory Exam Respiratory Exam: NORMAL BREATHING PATTERN - Cardiovascular Exam Cardiovascular Exam: +S1, +S2 - GI/Abdominal Exam GI & Abdominal Exam: Distended absent: Guarding, Rigid, Tenderness - Neurological Exam Neurological Exam: Alert, Awake - Psychiatric Exam Psychiatric exam: Normal Affect, Normal Mood - Skin Skin Exam: Dry, Intact Assessment and Plan - Assessment and Plan (Free Text) Assessment: This is a 51M who is POD11 (07/07) emergent decompressing laminectomy T2-4 with residual neurogenic bladder and neurogenic paralytic ileus. VSS, Hgb 11.1 Advance Diet to puree Serial Abdominal Exams Monitor output No surgical plans at this time Continue management per primary team D/W Dr. Azar Sahh PGY-2
[2016-07-22] MEDS: Multivitamin With Minerals Tab PO SCH (09:31)
[2016-07-22] MEDS: Bacitracin 500 Units/gm Oint Foilpak UD TOP SCH (09:31)
[2016-07-22] MEDS: Zinc Oxide Topical 40% Oint (Desitin) TOP SCH ×2 (09:33→18:48)
[2016-07-22] MEDS: Heparin25000 units/250ml 1/2NS 250 ML IV PRN ×2 (09:48→21:29)
--- NOTE | 2016-07-22 10:40 | PN ---
DATE: 07/22/2016 REASON FOR CONSULTATION AND FOLLOWUP: Status post spinal abscess, DVT, status post CPR, intubated, n ow successfully extubated, no evidence of acute coronary syndrome. BRIEF CLINICAL HISTORY: A 51-year-old male admitted with 1-week history of chest pain radiating to t he back, found to be related to spinal abscess. Also found DVT of the lower extremity. The patient is status post spinal abscess drained, on heparin, went into acute abdomen, had NG tube in place, now NG tube is discontinued. Still feels distended ____. Denies any chest pain, shortness of breath, a ny palpitation. The patient is paraplegic, unable to move or wiggle toes. PHYSICAL EXAMINATION: VITAL SIGNS: Temperature afebrile, heart rate ____, blood pressure 105/69. HEENT: PERRLA. Extraocular muscles intact. NECK: Supple. No carotid bruits. No thyromegaly. CHEST: Clear to auscultation. HEART: S1, S2 regular. ABDOMEN: Soft. EXTREMITIES: Clubbing and cyanosis negative. LABORATORY DATA: Blood workup as follows: WBC ____, hemoglobin ____, hematocrit 33.6, platelet coun t 186. Chemistry shows sodium 130, potassium 3.9, chloride 100, carbon dioxide 24, anion gap of 16, BUN 11, creatinine 0.8. IMPRESSION: Paraplegic, status post spinal abscess drained. No evidence of acute coronary syndrome, no evidence of unstable angina, chest pain related to the spinal abscess radiating from the back. Tr oponin remains flat. No evidence of acute coronary syndrome, no evidence of acute myocardial infarct ion, acute abdomen being managed medically, history of deep venous thrombosis. RECOMMENDATION: Continue heparin because the patient off and on gets distended abdomen and requiring NG suction. Once the abdomen issue is completely resolved, will change to p.o. Coumadin. Continue rehabilitation. We will discontinue telemetry. No arrhythmia noted. Last echo the patient had was 07/08/2016 that shows normal LV size, normal LV function, ejection fraction 55%-60%, trace aortic regu rgitation, trace mitral regurgitation, trace tricuspid regurgitation, RV systolic pressure 22, essent ially normal echo. We will discontinue telemetry. We will follow with you. Thank you, Dr. Marc, for providing the opportunity in taking care of this patient. Continue followup with surgical evaluation and neuro evaluation. No active cardiac problem at this time. We will foll ow. Jarrod Barbour MD cc: [id number] TT: 07/22/2016 10:39:39 Confirmation # [id number] Dictation # [id number] rn
[2016-07-22] MEDS: Dextrose 5%/0.9% NS 1,000 ML IV SCH ×2 (13:10→22:19)
--- NOTE | 2016-07-22 21:09 | CP.PCM.PN ---
Subjective - Date & Time of Evaluation Date of Evaluation: 07/22/16 Time of Evaluation: 11:50 - Subjective Subjective: Afebrile but still has distended abdomen. Objective - Vital Signs/Intake and Output Vital Signs (last 24 hours): Temp Pulse Resp BP Pulse Ox 97.6 F 68 20 117/71 99 07/22/16 16:00 07/22/16 18:19 07/22/16 16:00 07/22/16 18:19 07/22/16 16:00 - Medications Medications: Current Medications Albuterol/Ipratropium (Duoneb 3 Mg/0.5 Mg (3 Ml) Ud) 3 ml IH [id number] [facility] Last Admin: 07/22/16 20:39 Dose: 3 ml Ascorbic Acid (Vitamin C 500 Mg Tab) 500 mg PO DAILY [facility] Last Admin: 07/22/16 09:31 Dose: 500 mg Bacitracin (Bacitracin) 1 ea TOP DAILY [facility] Last Admin: 07/22/16 09:31 Dose: 1 ea Bisacodyl (Dulcolax) 10 mg RC DAILY [facility] Last Admin: 07/22/16 09:31 Dose: 10 mg Bisacodyl (Dulcolax) 10 mg RC Q8H PRN PRN Reason: Constipation Ceftriaxone Sodium (Rocephin 2 Gm Ivpb) 100 mls @ 100 mls/hr IVPB Q12 [facility] PRN Reason: Protocol Stop: 08/08/16 10:01 Last Admin: 07/22/16 09:31 Dose: 100 mls/hr Dextrose/Sodium Chloride (Dextrose 5%/0.9% Ns 1000 Ml) 1,000 mls @ 100 mls/hr IV .Q10H [facility] Last Admin: 07/22/16 13:10 Dose: 100 mls/hr Heparin Sodium/Sodium Chloride (Heparin 63892 Units/250ml 1/2 Normal Saline) 250 mls @ 24.351 mls/hr IV .[id number] PRN; Protocol; 17 UNITS/KG/HR PRN Reason: ADJUST RATE PER PROTOCOL Last Admin: 07/22/16 09:48 Dose: 16.83 units/kg/hr, 24.3 mls/hr Metoclopramide HCl (Reglan) 10 mg IVP Q6 [facility] Last Admin: 07/22/16 18:18 Dose: 10 mg Metoprolol Tartrate (Lopressor) 25 mg PO BID [facility] Last Admin: 07/22/16 18:19 Dose: 25 mg Multivitamins/Minerals (Therapeutic-M Tab) 1 tab PO DAILY [facility] Last Admin: 07/22/16 09:31 Dose: 1 tab Nicotine (Nicoderm Cq) 1 patch TD DAILY [facility] Last Admin: 07/22/16 09:31 Dose: 1 patch Ondansetron HCl (Zofran Inj) 4 mg IVP Q8H PRN PRN Reason: Nausea/Vomiting Last Admin: 07/16/16 02:02 Dose: 4 mg Pantoprazole Sodium (Protonix Inj) 40 mg IVP Q12 [facility] Last Admin: 07/22/16 09:30 Dose: 40 mg Petrolatum (Desitin Maximum Strength Topical 40% Oint) 0.1 gm TOP BID [facility] Last Admin: 07/22/16 18:48 Dose: Not Given Tramadol HCl (Ultram) 50 mg PO TID PRN PRN Reason: Pain, severe (8-10) Last Admin: 07/22/16 18:18 Dose: 50 mg Zinc Sulfate (Zinc Sulfate 220 Mg Cap) 220 mg PO DAILY [facility] Last Admin: 07/22/16 09:32 Dose: 220 mg - Labs Labs: 07/22/16 07:25 07/22/16 07:25 PT 10.8 Seconds (9.9-11.8) 07/09/16 21:30 INR 1.00 (0.93-1.08) 07/09/16 21:30 APTT 58.8 Seconds (23.7-30.8) H 07/22/16 07:25 - Constitutional Appears: Non-toxic, No Acute Distress - Head Exam Head Exam: NORMAL INSPECTION - ENT Exam ENT Exam: Mucous Membranes Moist - Neck Exam Neck Exam: absent: Lymphadenopathy, Meningismus - Respiratory Exam Respiratory Exam: Decreased Breath Sounds - Cardiovascular Exam Cardiovascular Exam: +S1, +S2 - GI/Abdominal Exam GI & Abdominal Exam: Soft. absent: Tenderness - Extremities Exam Additional comments: right foot with dry dressings in place Assessment and Plan - Assessment and Plan (Free Text) Plan: Assessment Epidural abscess secondary to Strep pneumoniae with associated cord compression and lower extremity paralysis S/P neurosurgery for abscess drainage and laminectomy POD #15 Partial small bowel obstruction, slowly improving significant smoking history alcohol abuse obesity with BMI 40 Plan Continue Rocephin for at least 4-6 weeks with weekly ESR, CRP, CBC, CMP Will continue to follow clinically
[2016-07-23] MEDS: Albuterol-Ipratrop 3 mg / 0.5 (3 ml) UD IH SCH ×4 (01:36→20:26)
[2016-07-23] MEDS: Dextrose 5%/0.9% NS 1,000 ML IV SCH (05:21)
[2016-07-23 08:01] LABS: BASO # 0.05 K/mm3 (0.0-2.0); BASO % 1.4 % (0.0-3.0); EOS # 0.1 (0.0-0.7); EOS % 2.5 % (1.5-5.0); GRAN # 1.88 (1.4-6.5); GRAN % 51.6 % (50.0-68.0); HEMOGLOBIN 10.2 gm/dL (14.0-18.0); LYMPH # 1.1 (1.2-3.4); LYMPH % 29.4 % (22.0-35.0); MEAN CELL VOLUME 91.1 fL (80.0-105.0); MEAN CORPUSCULAR HEMOGLOBIN 30.4 pg (25.0-35.0); MEAN CORPUSCULAR HGB CONC 33.3 g/dl (31.0-37.0); MEAN PLATELET VOLUME 11.8 fl (7.0-11.0); MONO # 0.6 (0.1-0.6); MONO % 15.1 % (1.0-6.0); PLATELET COUNT 154 10^3/uL (120.0-450.0); RBC 3.36 10^6/uL (3.5-6.1); WHITE BLOOD COUNT 3.6 10^3/ul (4.5-11.0)
[2016-07-23 08:20] LABS: ALB/GLOB RATIO 0.9 (1.1-1.8); ALBUMIN 3.1 g/dL (3.0-4.8); ALT/SGPT 58 U/L (7-56); AST/SGOT 31 U/L (15-59); BLOOD UREA NITROGEN 11 mg/dL (7-21); CALCIUM 8.7 mg/dL (8.4-10.5); GFR AFRICAN-AMERICAN > 60; GFR NON-AFRICAN AMERICAN > 60
[2016-07-23] MEDS: Heparin25000 units/250ml 1/2NS 250 ML IV PRN ×2 (08:44→19:01)
[2016-07-23] MEDS: Multivitamin With Minerals Tab PO SCH (09:06)
[2016-07-23] MEDS: Bacitracin 500 Units/gm Oint Foilpak UD TOP SCH (09:06)
[2016-07-23] MEDS: Zinc Oxide Topical 40% Oint (Desitin) TOP SCH (09:07)
--- NOTE | 2016-07-23 11:40 | CP.PCM.PN ---
<Keri Guzman - Last Filed: 07/23/16 12:03> Subjective - Date & Time of Evaluation Date of Evaluation: 07/23/16 Time of Evaluation: 11:38 - Subjective Subjective: HOSPITALISTS PROGRESS NOTE Pt seen and examined at bedside. No acute events overnight. Pt had 1 BM yesterday and admits to passing gas. Patient is tolerating diet. Denies having any CP, SOB, HE, N/V. Pt received physical therapy yesterday and tolerated it well. Objective - Vital Signs/Intake and Output Vital Signs (last 24 hours): Temp Pulse Resp BP Pulse Ox 99.3 F 66 20 124/70 98 07/23/16 08:47 07/23/16 09:04 07/23/16 08:47 07/23/16 09:04 07/23/16 08:47 Intake and Output: 07/23/16 07/23/16 06:59 18:59 Intake Total 2978 250 Output Total 600 Balance 2378 250 - Medications Medications: Current Medications Albuterol/Ipratropium (Duoneb 3 Mg/0.5 Mg (3 Ml) Ud) 3 ml IH [id number] [facility] Last Admin: 07/23/16 07:36 Dose: 3 ml Ascorbic Acid (Vitamin C 500 Mg Tab) 500 mg PO DAILY [facility] Last Admin: 07/23/16 09:05 Dose: 500 mg Bacitracin (Bacitracin) 1 ea TOP DAILY [facility] Last Admin: 07/23/16 09:06 Dose: 1 ea Bisacodyl (Dulcolax) 10 mg RC DAILY [facility] Last Admin: 07/23/16 09:06 Dose: 10 mg Bisacodyl (Dulcolax) 10 mg RC Q8H PRN PRN Reason: Constipation Ceftriaxone Sodium (Rocephin 2 Gm Ivpb) 100 mls @ 100 mls/hr IVPB Q12 [facility] PRN Reason: Protocol Stop: 08/08/16 10:01 Last Admin: 07/23/16 09:02 Dose: 100 mls/hr Dextrose/Sodium Chloride (Dextrose 5%/0.9% Ns 1000 Ml) 1,000 mls @ 100 mls/hr IV .Q10H [facility] Last Admin: 07/23/16 05:21 Dose: Not Given Heparin Sodium/Sodium Chloride (Heparin 88471 Units/250ml 1/2 Normal Saline) 250 mls @ 24.351 mls/hr IV .[id number] PRN; Protocol; 17 UNITS/KG/HR PRN Reason: ADJUST RATE PER PROTOCOL Last Admin: 07/23/16 08:44 Dose: 16.83 units/kg/hr, 24.3 mls/hr Metoclopramide HCl (Reglan) 10 mg IVP Q6 [facility] Last Admin: 07/23/16 09:00 Dose: 10 mg Metoprolol Tartrate (Lopressor) 25 mg PO BID [facility] Last Admin: 07/23/16 09:04 Dose: 25 mg Multivitamins/Minerals (Therapeutic-M Tab) 1 tab PO DAILY [facility] Last Admin: 07/23/16 09:06 Dose: 1 tab Nicotine (Nicoderm Cq) 1 patch TD DAILY [facility] Last Admin: 07/23/16 09:01 Dose: 1 patch Pantoprazole Sodium (Protonix Inj) 40 mg IVP Q12 [facility] Last Admin: 07/23/16 09:00 Dose: 40 mg Petrolatum (Desitin Maximum Strength Topical 40% Oint) 0.1 gm TOP BID [facility] Last Admin: 07/23/16 09:07 Dose: 1 appl Tramadol HCl (Ultram) 50 mg PO TID PRN PRN Reason: Pain, severe (8-10) Last Admin: 07/23/16 09:05 Dose: 50 mg Zinc Sulfate (Zinc Sulfate 220 Mg Cap) 220 mg PO DAILY [facility] Last Admin: 07/23/16 09:04 Dose: 220 mg - Labs Labs: 07/23/16 07:25 07/23/16 07:25 PT 10.8 Seconds (9.9-11.8) 07/09/16 21:30 INR 1.00 (0.93-1.08) 07/09/16 21:30 APTT 66.5 Seconds (23.7-30.8) H 07/23/16 07:25 - Constitutional Appears: Non-toxic, No Acute Distress - Head Exam Head Exam: ATRAUMATIC - Eye Exam Eye Exam: EOMI Pupil Exam: PERRL - ENT Exam ENT Exam: Mucous Membranes Moist - Respiratory Exam Respiratory Exam: Rhonchi. absent: Accessory Muscle Use, Rales, Wheezes, Respiratory Distress - Cardiovascular Exam Cardiovascular Exam: REGULAR RHYTHM, +S1, +S2. absent: Gallop, Rubs, Murmur - GI/Abdominal Exam GI & Abdominal Exam: Soft, Normal Bowel Sounds. absent: Distended, Firm, Guarding, Rigid, Tenderness - Extremities Exam Extremities Exam: absent: Pedal Edema, Tenderness - Neurological Exam Neurological Exam: Alert, Awake, Oriented x3 - Psychiatric Exam Psychiatric exam: Normal Affect, Normal Mood - Skin Skin Exam: Dry, Intact, Normal Color, Warm Assessment and Plan - Assessment and Plan (Free Text) Assessment: 51 year old male with no significant past medical history is s/p T2-T4 lamenectomy on 07/07/16 US of LE showed R LE DVT s/p IVC filter Plan: 1. 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 for 4-6 weeks -Tramadol prn -ID is consulted Workup: -Wound cultures grew strep pneumo -Pathology shows fragments of bone with no metastatic disease. See report for full details -CT of chest/abd/pelvis is negative for malignancy -MRI c/ and w/o contrast on 07/07 prior to procedure showed fluid collection in ventral epidural space from T1-T5 with cord compression and obliteration of subarachinoid space; abnormal signal in T3&T4 which may represent osteomyelitis vs. metastatic dz; no disc herniation, spinal canal stenosis or neuroforaminal narrowing. Lumbar spine MRI was negative for cauda equina. Please see full reports for details. 2. 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 3. Neurogenic bowel vs. ileus - Tolerating pureed diet. - Continue bowel regimen of Reglan 10 mg IV ACHS, Miralax, Dulcolax - Surgery is consulted. Workup: - CT abd/pelvis showed partial SBO and small pelvic free air. 5. Neurogenic bladder - Haque in place - Urology is consulted. 6. R LE DVT - IVC filter placed - Pt is on heparin drip and closely monitored for bleeding. Will hold off on starting coumadin right now. - Heme/onc is consulted. Workup: - 07/06 US of LE showed thrombus in right common and proximal femoral vein 7. Atypical CP - Acs ruled out with negative EKG and trops - Cardio is consulted Workup: - Echo showed EF of 63.5%, normal LV, trace AR, MR and TR - Hgb A1c is 6.3 8. Iron deficiency anemia - Will cont to monitor at this time. H&H is stable Workup: - Iron 35 (low), TIBC 325 (normal), Ferritin 11 (low), Vit B12 327 (Normal), folate 7.8 (normal) 9. pressure ulcer on sacrum and buttock - air mattress - continue to reposition q2 - multivit, zinv, vitamin C PO ordered - Wound care pending 10. LOLA - Resolved 10. Prophylaxis - Protonix - heparin drip Dispo: Pt uninsured. Not eligible for rehab facility. Not qualify for [facility] bc of income above $[phone] Case discussed with attending Dr. Marc <Tutu Marc B - Last Filed: 07/23/16 14:33> Objective - Vital Signs/Intake and Output Vital Signs (last 24 hours): Temp Pulse Resp BP Pulse Ox 99.3 F 66 20 124/70 98 07/23/16 08:47 07/23/16 09:04 07/23/16 08:47 07/23/16 09:04 07/23/16 08:47 Intake and Output: 07/23/16 07/23/16 06:59 18:59 Intake Total 2978 250 Output Total 600 Balance 2378 250 - Medications Medications: Current Medications Albuterol/Ipratropium (Duoneb 3 Mg/0.5 Mg (3 Ml) Ud) 3 ml IH [id number] [facility] Last Admin: 07/23/16 13:15 Dose: 3 ml Ascorbic Acid (Vitamin C 500 Mg Tab) 500 mg PO DAILY [facility] Last Admin: 07/23/16 09:05 Dose: 500 mg Bacitracin (Bacitracin) 1 ea TOP DAILY [facility] Last Admin: 07/23/16 09:06 Dose: 1 ea Bisacodyl (Dulcolax) 10 mg RC DAILY [facility] Last Admin: 07/23/16 09:06 Dose: 10 mg Bisacodyl (Dulcolax) 10 mg RC Q8H PRN PRN Reason: Constipation Ceftriaxone Sodium (Rocephin 2 Gm Ivpb) 100 mls @ 100 mls/hr IVPB Q12 [facility] PRN Reason: Protocol Stop: 08/08/16 10:01 Last Admin: 07/23/16 09:02 Dose: 100 mls/hr Dextrose/Sodium Chloride (Dextrose 5%/0.9% Ns 1000 Ml) 1,000 mls @ 100 mls/hr IV .Q10H [facility] Last Admin: 07/23/16 05:21 Dose: Not Given Heparin Sodium/Sodium Chloride (Heparin 91828 Units/250ml 1/2 Normal Saline) 250 mls @ 24.351 mls/hr IV .[id number] PRN; Protocol; 17 UNITS/KG/HR PRN Reason: ADJUST RATE PER PROTOCOL Last Admin: 07/23/16 08:44 Dose: 16.83 units/kg/hr, 24.3 mls/hr Metoclopramide HCl (Reglan) 10 mg IVP Q6 [facility] Last Admin: 07/23/16 12:05 Dose: 10 mg Metoprolol Tartrate (Lopressor) 25 mg PO BID [facility] Last Admin: 07/23/16 09:04 Dose: 25 mg Multivitamins/Minerals (Therapeutic-M Tab) 1 tab PO DAILY [facility] Last Admin: 07/23/16 09:06 Dose: 1 tab Nicotine (Nicoderm Cq) 1 patch TD DAILY [facility] Last Admin: 07/23/16 09:01 Dose: 1 patch Pantoprazole Sodium (Protonix Inj) 40 mg IVP Q12 [facility] Last Admin: 07/23/16 09:00 Dose: 40 mg Petrolatum (Desitin Maximum Strength Topical 40% Oint) 0.1 gm TOP BID [facility] Last Admin: 07/23/16 09:07 Dose: 1 appl Tramadol HCl (Ultram) 50 mg PO TID PRN PRN Reason: Pain, severe (8-10) Last Admin: 07/23/16 09:05 Dose: 50 mg Zinc Sulfate (Zinc Sulfate 220 Mg Cap) 220 mg PO DAILY [facility] Last Admin: 07/23/16 09:04 Dose: 220 mg - Labs Labs: 07/23/16 07:25 07/23/16 07:25 PT 10.8 Seconds (9.9-11.8) 07/09/16 21:30 INR 1.00 (0.93-1.08) 07/09/16 21:30 APTT 66.5 Seconds (23.7-30.8) H 07/23/16 07:25 Attending/Attestation - Attestation I have personally seen and examined this patient.: Yes I have fully participated in the care of the patient.: Yes I have reviewed all pertinent clinical information, including history, physical exam and plan: Yes Notes (Text): I have seen and examined patient at bedside With resident. This is a 51 year old male with history of substance abuse (snorts cocaine), tobacco, alcohol use who got admitted for evaluation of back pain and found to have epidural abscess T1-T5, osteomyelitis, urinary retention, acute RLE DVT. He underwent emergent laminectomy and epidural abscess was drained. Wound culture is growing strep pneumonia. He is on rocephin. HIV negative. Pathology showed bone fragments and bone marrow. No evidence of carcinoma. He has abdominal distention and partial bowel obstruction due to paralytic ileus. His diet was advanced to puree yesterday which he has been tolerating. He is on heparin drip for acute RLE DVT and is s/p IVC filter. Will not start coumadin today as his abdomen appears distended. There were no acute events overnight. He has haque catheter for neurogenic bladder. Advised frequent turning to avoid pressure sores/continue wound care. Dr Tutu Marc
--- NOTE | 2016-07-23 14:15 | PN ---
DATE: 07/23/2016 The patient is in room 571, bed #2. REASON FOR CONSULTATION AND FOLLOWUP: Status post spinal abscess, DVT, status post CPR, intubated, no w successfully extubated. HISTORY OF PRESENT ILLNESS: A 51-year-old male admitted with a 1-week history of chest pain radiatin g to the back. Found to be related to spinal abscess. Also found to have a DVT in lower extremity. The patient is status post spinal abscess drainage, on heparin, went into acute abdomen, had NG tube put in, now NG tube is discontinued. The patient denies chest pain, shortness of breath, or palpita tion. The patient is lying flat in bed without any cardiac symptoms. The patient is paraplegic at p resent, lying flat in bed without any shortness of breath or chest pain. PHYSICAL EXAMINATION: VITAL SIGNS: Blood pressure 124/70, respirations 20, pulse 63, temperature 99.3. HEAD: Normocephalic. EYES: Pupils normal. Conjunctivae are slightly pale. NECK: JVP low. Carotids equal. THORAX: AP diameter normal. LUNGS: Clear. CARDIOVASCULAR: S1, S2. ABDOMEN: Protuberant, no organomegaly. EXTREMITIES: No clubbing, no cyanosis. LABORATORY DATA: WBC 3.6, hemoglobin 10.2, hematocrit 30.6, platelet 154, sodium 135, potassium 3.8, BUN 11, creatinine 0.7, random sugar 119, total bilirubin 0.4, AST 31, ALT 58, total protein 6.7, al bumin 3.1. DIAGNOSES: Paraplegic, status post spinal abscess drainage. Chest pain was related to spinal absces s radiating from the back to the front. Acute abdomen, history of deep venous thrombosis. The patie nt's echo was essentially normal. PLAN: The patient is getting IV fluid. The patient also on heparin. Once the GI issue is resolved, then patient can go on Coumadin, because patient may need NG tube or any other intervention. Metopr olol 25 b.i.d., Protonix 40 mg IV q. 12 hours, Reglan 10 mg IV q. 6 hours, Rocephin 2 gram IV q. 12 h ours. We will continue to follow with you closely. Clinically, cardiac status is stable. Jarrod Sumner MD cc: [phone] TT: 07/23/2016 14:15:23 Confirmation # [id number] Dictation # [id number] rn
--- NOTE | 2016-07-23 22:40 | CP.PCM.PN ---
Subjective - Date & Time of Evaluation Date of Evaluation: 07/23/16 Time of Evaluation: 12:50 - Subjective Subjective: Comfortable in bed, not in distress, no fevers. Able to tolerate food today. Objective - Vital Signs/Intake and Output Vital Signs (last 24 hours): Temp Pulse Resp BP Pulse Ox 99 F 62 20 124/67 96 07/23/16 16:00 07/23/16 17:18 07/23/16 16:00 07/23/16 17:18 07/23/16 16:00 Intake and Output: 07/23/16 07/24/16 18:59 06:59 Intake Total 730 1030 Output Total 1000 950 Balance -270 80 - Medications Medications: Current Medications Albuterol/Ipratropium (Duoneb 3 Mg/0.5 Mg (3 Ml) Ud) 3 ml IH [id number] [facility] Last Admin: 07/23/16 20:26 Dose: 3 ml Ascorbic Acid (Vitamin C 500 Mg Tab) 500 mg PO DAILY [facility] Last Admin: 07/23/16 09:05 Dose: 500 mg Bacitracin (Bacitracin) 1 ea TOP DAILY [facility] Last Admin: 07/23/16 09:06 Dose: 1 ea Bisacodyl (Dulcolax) 10 mg RC DAILY [facility] Last Admin: 07/23/16 09:06 Dose: 10 mg Bisacodyl (Dulcolax) 10 mg RC Q8H PRN PRN Reason: Constipation Ceftriaxone Sodium (Rocephin 2 Gm Ivpb) 100 mls @ 100 mls/hr IVPB Q12 [facility] PRN Reason: Protocol Stop: 08/08/16 10:01 Last Admin: 07/23/16 21:31 Dose: 100 mls/hr Heparin Sodium/Sodium Chloride (Heparin 68350 Units/250ml 1/2 Normal Saline) 250 mls @ 24.351 mls/hr IV .[id number] PRN; Protocol; 17 UNITS/KG/HR PRN Reason: ADJUST RATE PER PROTOCOL Last Admin: 07/23/16 19:01 Dose: 16.83 units/kg/hr, 24.3 mls/hr Metoclopramide HCl (Reglan) 10 mg IVP Q6 [facility] Last Admin: 07/23/16 17:18 Dose: 10 mg Metoprolol Tartrate (Lopressor) 25 mg PO BID [facility] Last Admin: 07/23/16 17:18 Dose: 25 mg Multivitamins/Minerals (Therapeutic-M Tab) 1 tab PO DAILY [facility] Last Admin: 07/23/16 09:06 Dose: 1 tab Nicotine (Nicoderm Cq) 1 patch TD DAILY [facility] Last Admin: 07/23/16 09:01 Dose: 1 patch Petrolatum (Desitin Maximum Strength Topical 40% Oint) 0.1 gm TOP BID [facility] Last Admin: 07/23/16 09:07 Dose: 1 appl Tramadol HCl (Ultram) 50 mg PO TID PRN PRN Reason: Pain, severe (8-10) Last Admin: 07/23/16 20:45 Dose: 50 mg Zinc Sulfate (Zinc Sulfate 220 Mg Cap) 220 mg PO DAILY [facility] Last Admin: 07/23/16 09:04 Dose: 220 mg - Labs Labs: 07/23/16 07:25 07/23/16 07:25 PT 10.8 Seconds (9.9-11.8) 07/09/16 21:30 INR 1.00 (0.93-1.08) 07/09/16 21:30 APTT 66.5 Seconds (23.7-30.8) H 07/23/16 07:25 - Constitutional Appears: Non-toxic, No Acute Distress - Head Exam Head Exam: NORMAL INSPECTION - ENT Exam ENT Exam: Mucous Membranes Moist - Neck Exam Neck Exam: absent: Lymphadenopathy, Meningismus - Respiratory Exam Respiratory Exam: Decreased Breath Sounds - Cardiovascular Exam Cardiovascular Exam: +S1, +S2 - GI/Abdominal Exam GI & Abdominal Exam: Soft. 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 with associated cord compression and lower extremity paralysis S/P neurosurgery for abscess drainage and laminectomy POD #16 Partial small bowel obstruction, slowly improving significant smoking history alcohol abuse obesity with BMI 40 Plan Continue Rocephin for at least 4-6 weeks with weekly ESR, CRP, CBC, CMP Will continue to follow clinically
[2016-07-24] MEDS: Albuterol-Ipratrop 3 mg / 0.5 (3 ml) UD IH SCH ×4 (02:05→20:52)
[2016-07-24] MEDS: Heparin25000 units/250ml 1/2NS 250 ML IV PRN ×2 (06:49→18:18)
[2016-07-24 07:23] LABS: BASO # 0.03 K/mm3 (0.0-2.0); BASO % 0.9 % (0.0-3.0); EOS # 0.1 (0.0-0.7); EOS % 2.1 % (1.5-5.0); GRAN # 1.97 (1.4-6.5); GRAN % 59.3 % (50.0-68.0); HEMOGLOBIN 10.6 gm/dL (14.0-18.0); LYMPH # 0.8 (1.2-3.4); LYMPH % 23.5 % (22.0-35.0); MEAN CELL VOLUME 90.4 fL (80.0-105.0); MEAN CORPUSCULAR HEMOGLOBIN 29.9 pg (25.0-35.0); MEAN CORPUSCULAR HGB CONC 33.1 g/dl (31.0-37.0); MEAN PLATELET VOLUME 11.9 fl (7.0-11.0); MONO # 0.5 (0.1-0.6); MONO % 14.2 % (1.0-6.0); PLATELET COUNT 138 10^3/uL (120.0-450.0); RBC 3.54 10^6/uL (3.5-6.1); RED CELL DISTRIBUTION WIDTH 13.9 % (11.5-14.5); WHITE BLOOD COUNT 3.3 10^3/ul (4.5-11.0)
[2016-07-24 07:44] LABS: ALB/GLOB RATIO 0.9 (1.1-1.8); ALBUMIN 3.3 g/dL (3.0-4.8); ALT/SGPT 57 U/L (7-56); AST/SGOT 31 U/L (15-59); BLOOD UREA NITROGEN 9 mg/dL (7-21); CALCIUM 8.8 mg/dL (8.4-10.5); GFR AFRICAN-AMERICAN > 60; GFR NON-AFRICAN AMERICAN > 60
--- NOTE | 2016-07-24 09:19 | CP.PCM.PN ---
<Keri Guzman - Last Filed: 07/24/16 12:52> Subjective - Date & Time of Evaluation Date of Evaluation: 07/24/16 Time of Evaluation: 09:16 - Subjective Subjective: HOSPITALIST PROGRESS NOTE Pt is seen and examined at bedside. No acute events overnight. 1 BM yesterday but is still passing gas. Tolerating diet. Denies having any CP, SOB, abd pain , N/V. Haque in place. Objective - Vital Signs/Intake and Output Vital Signs (last 24 hours): Temp Pulse Resp BP Pulse Ox 98.2 F 67 20 134/83 96 07/24/16 08:53 07/24/16 08:53 07/24/16 08:53 07/24/16 08:53 07/24/16 08:53 Intake and Output: 07/24/16 07/24/16 06:59 18:59 Intake Total 1520 Output Total 1800 Balance -280 - Medications Medications: Current Medications Albuterol/Ipratropium (Duoneb 3 Mg/0.5 Mg (3 Ml) Ud) 3 ml IH [id number] [facility] Last Admin: 07/24/16 02:05 Dose: 3 ml Ascorbic Acid (Vitamin C 500 Mg Tab) 500 mg PO DAILY [facility] Last Admin: 07/23/16 09:05 Dose: 500 mg Bacitracin (Bacitracin) 1 ea TOP DAILY [facility] Last Admin: 07/23/16 09:06 Dose: 1 ea Bisacodyl (Dulcolax) 10 mg RC DAILY [facility] Last Admin: 07/23/16 09:06 Dose: 10 mg Bisacodyl (Dulcolax) 10 mg RC Q8H PRN PRN Reason: Constipation Ceftriaxone Sodium (Rocephin 2 Gm Ivpb) 100 mls @ 100 mls/hr IVPB Q12 DONAL PRN Reason: Protocol Stop: 08/08/16 10:01 Last Admin: 07/23/16 21:31 Dose: 100 mls/hr Heparin Sodium/Sodium Chloride (Heparin 79038 Units/250ml 1/2 Normal Saline) 250 mls @ 24.351 mls/hr IV .[id number] PRN; Protocol; 17 UNITS/KG/HR PRN Reason: ADJUST RATE PER PROTOCOL Last Admin: 07/24/16 06:49 Dose: 16.83 units/kg/hr, 24.3 mls/hr Metoclopramide HCl (Reglan) 10 mg IVP Q6 [facility] Last Admin: 07/24/16 05:33 Dose: 10 mg Metoprolol Tartrate (Lopressor) 25 mg PO BID [facility] Last Admin: 07/23/16 17:18 Dose: 25 mg Multivitamins/Minerals (Therapeutic-M Tab) 1 tab PO DAILY [facility] Last Admin: 07/23/16 09:06 Dose: 1 tab Nicotine (Nicoderm Cq) 1 patch TD DAILY [facility] Last Admin: 07/23/16 09:01 Dose: 1 patch Petrolatum (Desitin Maximum Strength Topical 40% Oint) 0.1 gm TOP BID [facility] Last Admin: 07/23/16 09:07 Dose: 1 appl Tramadol HCl (Ultram) 50 mg PO TID PRN PRN Reason: Pain, severe (8-10) Last Admin: 07/24/16 05:41 Dose: 50 mg Zinc Sulfate (Zinc Sulfate 220 Mg Cap) 220 mg PO DAILY [facility] Last Admin: 07/23/16 09:04 Dose: 220 mg - Labs Labs: 07/24/16 06:33 07/24/16 06:33 PT 10.8 Seconds (9.9-11.8) 07/09/16 21:30 INR 1.00 (0.93-1.08) 07/09/16 21:30 APTT 63.9 Seconds (23.7-30.8) H 07/24/16 06:33 - Constitutional Appears: Non-toxic, No Acute Distress - Head Exam Head Exam: ATRAUMATIC - Eye Exam Eye Exam: EOMI Pupil Exam: PERRL - ENT Exam ENT Exam: Mucous Membranes Moist - Respiratory Exam Respiratory Exam: Rhonchi. absent: Accessory Muscle Use, Rales, Wheezes, Respiratory Distress - Cardiovascular Exam Cardiovascular Exam: REGULAR RHYTHM, +S1, +S2. absent: Gallop, Rubs, Murmur - GI/Abdominal Exam GI & Abdominal Exam: Distended. absent: Firm, Guarding, Rigid, Tenderness - Extremities Exam Extremities Exam: absent: Pedal Edema, Tenderness - Neurological Exam Neurological Exam: Alert, Awake, Oriented x3 - Psychiatric Exam Psychiatric exam: Normal Affect, Normal Mood - Skin Skin Exam: Dry, Intact, Normal Color, Warm Assessment and Plan - Assessment and Plan (Free Text) Assessment: 51 year old male with no significant past medical history is s/p T2-T4 lamenectomy on 07/07/16 US of LE showed R LE DVT s/p IVC filter Plan: 1. 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 for 4-6 weeks per ID recs -Tramadol prn -ID is consulted Workup: -Wound cultures grew strep pneumo -Pathology shows fragments of bone with no metastatic disease. See report for full details -CT of chest/abd/pelvis is negative for malignancy -MRI c/ and w/o contrast on 07/07 prior to procedure showed fluid collection in ventral epidural space from T1-T5 with cord compression and obliteration of subarachinoid space; abnormal signal in T3&T4 which may represent osteomyelitis vs. metastatic dz; no disc herniation, spinal canal stenosis or neuroforaminal narrowing. Lumbar spine MRI was negative for cauda equina. Please see full reports for details. 2. 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 3. Neurogenic bowel vs. ileus - Patient is more distended today. Patient made NPO and discussed with cardiovascular surgical tech. No NG tube at this point as pt has no N/V. - Continue bowel regimen of Reglan 10 mg IV ACHS, Miralax, Dulcolax - Surgery is consulted. Workup: - CT abd/pelvis showed partial SBO and small pelvic free air. 5. Neurogenic bladder - Haque in place - Urology is consulted. - Will require suprapubic cath at some time in future 6. R LE DVT - IVC filter placed - Pt is on heparin drip and closely monitored for bleeding. Will hold off on starting coumadin right now. - Heme/onc is consulted. Workup: - 07/06 US of LE showed thrombus in right common and proximal femoral vein 7. Atypical CP - Acs ruled out with negative EKG and trops - Cardio is consulted Workup: - Echo showed EF of 63.5%, normal LV, trace AR, MR and TR - Hgb A1c is 6.3 8. Iron deficiency anemia - Will cont to monitor at this time. H&H is stable Workup: - Iron 35 (low), TIBC 325 (normal), Ferritin 11 (low), Vit B12 327 (Normal), folate 7.8 (normal) 9. pressure ulcer on sacrum and buttock - air mattress - continue to reposition q2 - multivit, zinv, vitamin C PO ordered - Wound care pending 10. LOLA - Resolved 10. Prophylaxis - Protonix - heparin drip Dispo: Pt uninsured. Not eligible for rehab facility. Not qualify for [facility] bc of income above $[phone] Case discussed with attending Dr. Marc <Tutu Marc B - Last Filed: 07/24/16 16:04> Objective - Vital Signs/Intake and Output Vital Signs (last 24 hours): Temp Pulse Resp BP Pulse Ox 98.2 F 67 20 134/83 96 07/24/16 08:53 07/24/16 11:17 07/24/16 08:53 07/24/16 11:17 07/24/16 08:53 Intake and Output: 07/24/16 07/24/16 06:59 18:59 Intake Total 1520 360 Output Total 1800 900 Balance -280 -540 - Medications Medications: Current Medications Albuterol/Ipratropium (Duoneb 3 Mg/0.5 Mg (3 Ml) Ud) 3 ml IH [id number] [facility] Last Admin: 07/24/16 14:27 Dose: 3 ml Ascorbic Acid (Vitamin C 500 Mg Tab) 500 mg PO DAILY [facility] Last Admin: 07/24/16 11:19 Dose: 500 mg Bisacodyl (Dulcolax) 10 mg RC Q8H PRN PRN Reason: Constipation Bisacodyl (Dulcolax) 5 mg PO DAILY [facility] Ceftriaxone Sodium (Rocephin 2 Gm Ivpb) 100 mls @ 100 mls/hr IVPB Q12 DON[facility] PRN Reason: Protocol Stop: 08/08/16 10:01 Last Admin: 07/24/16 11:18 Dose: 100 mls/hr Heparin Sodium/Sodium Chloride (Heparin 61939 Units/250ml 1/2 Normal Saline) 250 mls @ 24.351 mls/hr IV .[id number] PRN; Protocol; 17 UNITS/KG/HR PRN Reason: ADJUST RATE PER PROTOCOL Last Admin: 07/24/16 06:49 Dose: 16.83 units/kg/hr, 24.3 mls/hr Lidocaine HCl (Lidocaine 2% Viscous) 15 ml PO Q2H PRN PRN Reason: Throat Pain Last Admin: 07/24/16 15:00 Dose: 15 ml Metoclopramide HCl (Reglan) 10 mg IVP Q6 [facility] Last Admin: 07/24/16 12:17 Dose: 10 mg Metoprolol Tartrate (Lopressor) 25 mg PO BID [facility] Last Admin: 07/24/16 11:17 Dose: 25 mg Multivitamins/Minerals (Therapeutic-M Tab) 1 tab PO DAILY [facility] Last Admin: 07/24/16 11:19 Dose: 1 tab Nicotine (Nicoderm Cq) 1 patch TD DAILY [facility] Last Admin: 07/24/16 11:18 Dose: 1 patch Petrolatum (Desitin Maximum Strength Topical 40% Oint) 0.1 gm TOP BID [facility] Last Admin: 07/24/16 11:17 Dose: 1 appl Tramadol HCl (Ultram) 50 mg PO TID PRN PRN Reason: Pain, severe (8-10) Last Admin: 07/24/16 05:41 Dose: 50 mg Zinc Sulfate (Zinc Sulfate 220 Mg Cap) 220 mg PO DAILY [facility] Last Admin: 07/24/16 11:19 Dose: 220 mg - Labs Labs: 07/24/16 06:33 07/24/16 06:33 PT 10.8 Seconds (9.9-11.8) 07/09/16 21:30 INR 1.00 (0.93-1.08) 07/09/16 21:30 APTT 63.9 Seconds (23.7-30.8) H 07/24/16 06:33 Attending/Attestation - Attestation I have personally seen and examined this patient.: Yes I have fully participated in the care of the patient.: Yes I have reviewed all pertinent clinical information, including history, physical exam and plan: Yes Notes (Text): I have seen and examined patient at bedside With resident. This is a 51 year old male with history of substance abuse (snorts cocaine), tobacco, alcohol use who got admitted for evaluation of back pain and found to have epidural abscess T1-T5, osteomyelitis, urinary retention and acute RLE DVT. He underwent emergent laminectomy and epidural abscess was drained. Wound culture is growing strep pneumonia. He is on rocephin. HIV negative. Pathology showed bone fragments and bone marrow. No evidence of carcinoma. He has no noticeable improvement in neurological function. He has abdominal distention and partial bowel obstruction due to paralytic ileus. Today his abdomen was found to be more distended. He did not have any vomiting or abdominal pain. As per patient he had a very small BM today. Discussed with surgery team. Will make patient npo. Start IVF. Flat plate of abdomen ordered. Discussed with the patient regarding possible NGT placement. Will re consult GI. He is on heparin drip for acute RLE DVT and is s/p IVC filter. Will hold off on coumadin as his abdomen appears very distended. He has haque catheter for neurogenic bladder. Advised frequent turning to avoid pressure sores/continue wound care. Dr Tutu Marc
[2016-07-24] MEDS: Bacitracin 500 Units/gm Oint Foilpak UD TOP SCH (11:17)
[2016-07-24] MEDS: Zinc Oxide Topical 40% Oint (Desitin) TOP SCH ×2 (11:17→18:15)
[2016-07-24] MEDS: Multivitamin With Minerals Tab PO SCH (11:19)
--- NOTE | 2016-07-24 12:02 | PN ---
DATE: 07/24/2016 LOCATION: Room 571, bed #2. REASON FOR CONSULTATION AND FOLLOWUP: Status post spinal abscess drainage, DVT, status post CPR, int ubated, now successfully extubated, distention of abdomen. HISTORY OF PRESENT ILLNESS: A 51-year-old male admitted with a 1-week history of chest pain radiatin g from back to the front, found to be related to spinal abscess. After draining of the spinal absces s, pain was relieved. Also found to have a DVT in the lower extremity. The patient then developed d istention of abdomen and had NG tube put in. Now NG tube has been discontinued, but patient's abdomi nal distention is continuing, although patient denies any chest pain, shortness of breath, or palpita tion. PHYSICAL EXAMINATION: VITAL SIGNS: Blood pressure 134/83, respirations 20, pulse 67, temperature 98.2. HEAD: Normocephalic. EYES: Pupils normal. Conjunctivae are slightly pale. NECK: JVP low. Carotids equal. THORAX: AP diameter normal. LUNGS: Clear. CARDIOVASCULAR: S1, S2. ABDOMEN: Soft, nontender. Abdomen is markedly distended. No organomegaly. EXTREMITIES: No clubbing, no cyanosis. LABORATORY DATA: WBC 3.3, hemoglobin 10.6, hematocrit 32.0, platelets 138. Sodium 134, potassium 3. 6, BUN 9, creatinine 0.7. AST 31, ALT 57. Total protein 7.0, albumin 3.3. DIAGNOSES: Paraplegic, status post spinal abscess drainage, chest pain relieved after draining of sp inal abscess, acute abdomen, history of deep vein thrombosis, distention of abdomen. PLAN: The patient's distention of abdomen seems to be more marked than yesterday, so I spoke with Dr Dakota Marc and she is going to evaluate the patient and probably will need reevaluation by gastroe nterology. The patient is still getting heparin drip for DVT. Did not switch to Coumadin because of any intervention needed from GI point of view. The patient also on metoprolol 25 b.i.d., ceftriaxon e 100 mL IV q. 12 hours, DuoNeb hand nebulizer therapy. We will follow with you. Jarrod Sumner MD cc: [id number] TT: 07/24/2016 12:01:16 Confirmation # [id number] Dictation # [id number] rn
--- NOTE | 2016-07-24 13:11 | CP.PCM.PN ---
Subjective - Date & Time of Evaluation Date of Evaluation: 07/24/16 Time of Evaluation: 13:14 - Subjective Subjective: Dr. Colt Cameron PGY1 Surgery Note for Dr. Askew Patient has no acute complaints or overnight events; nursing and primary medical team mentioned that abdomen was markedly larger than yesterday; patient denies any vomitus however having a small bm this morning and passing flatus; denies fevers/chills, REINA, CP, SOB, abdominal pain, N/V/D, dysuria/freq/urg. Objective - Vital Signs/Intake and Output Vital Signs (last 24 hours): Temp Pulse Resp BP Pulse Ox 98.2 F 67 20 134/83 96 07/24/16 08:53 07/24/16 11:17 07/24/16 08:53 07/24/16 11:17 07/24/16 08:53 Intake and Output: 07/24/16 07/24/16 06:59 18:59 Intake Total 1520 Output Total 1800 Balance -280 - Medications Medications: Current Medications Albuterol/Ipratropium (Duoneb 3 Mg/0.5 Mg (3 Ml) Ud) 3 ml IH [id number] [facility] Last Admin: 07/24/16 09:15 Dose: 3 ml Ascorbic Acid (Vitamin C 500 Mg Tab) 500 mg PO DAILY [facility] Last Admin: 07/24/16 11:19 Dose: 500 mg Bisacodyl (Dulcolax) 10 mg RC DAILY [facility] Last Admin: 07/24/16 11:17 Dose: 10 mg Bisacodyl (Dulcolax) 10 mg RC Q8H PRN PRN Reason: Constipation Ceftriaxone Sodium (Rocephin 2 Gm Ivpb) 100 mls @ 100 mls/hr IVPB Q12 DONAL PRN Reason: Protocol Stop: 08/08/16 10:01 Last Admin: 07/24/16 11:18 Dose: 100 mls/hr Heparin Sodium/Sodium Chloride (Heparin 79131 Units/250ml 1/2 Normal Saline) 250 mls @ 24.351 mls/hr IV .[id number] PRN; Protocol; 17 UNITS/KG/HR PRN Reason: ADJUST RATE PER PROTOCOL Last Admin: 07/24/16 06:49 Dose: 16.83 units/kg/hr, 24.3 mls/hr Metoclopramide HCl (Reglan) 10 mg IVP Q6 [facility] Last Admin: 07/24/16 12:17 Dose: 10 mg Metoprolol Tartrate (Lopressor) 25 mg PO BID [facility] Last Admin: 07/24/16 11:17 Dose: 25 mg Multivitamins/Minerals (Therapeutic-M Tab) 1 tab PO DAILY [facility] Last Admin: 07/24/16 11:19 Dose: 1 tab Nicotine (Nicoderm Cq) 1 patch TD DAILY [facility] Last Admin: 07/24/16 11:18 Dose: 1 patch Petrolatum (Desitin Maximum Strength Topical 40% Oint) 0.1 gm TOP BID [facility] Last Admin: 07/24/16 11:17 Dose: 1 appl Tramadol HCl (Ultram) 50 mg PO TID PRN PRN Reason: Pain, severe (8-10) Last Admin: 07/24/16 05:41 Dose: 50 mg Zinc Sulfate (Zinc Sulfate 220 Mg Cap) 220 mg PO DAILY [facility] Last Admin: 07/24/16 11:19 Dose: 220 mg - Labs Labs: 07/24/16 06:33 07/24/16 06:33 PT 10.8 Seconds (9.9-11.8) 07/09/16 21:30 INR 1.00 (0.93-1.08) 07/09/16 21:30 APTT 63.9 Seconds (23.7-30.8) H 07/24/16 06:33 - Constitutional Appears: Non-toxic - Head Exam Additional comments: Head Exam: ATRAUMATIC, NORMOCEPHALIC - Eye Exam Eye Exam: EOMI, Normal appearance - ENT Exam ENT Exam: Mucous Membranes Moist - Respiratory Exam Respiratory Exam: NORMAL BREATHING PATTERN - Cardiovascular Exam Cardiovascular Exam: +S1, +S2 - GI/Abdominal Exam GI & Abdominal Exam: Distended, tympanic absent: Guarding, Rigid, Tenderness - Neurological Exam Neurological Exam: Alert, Awake - Psychiatric Exam Psychiatric exam: Normal Affect, Normal Mood - Skin Skin Exam: Dry, Intact Assessment and Plan - Assessment and Plan (Free Text) Assessment: This is a 51M who is POD from 07/07 s/p emergent decompressing laminectomy T2-4 with residual neurogenic bladder and neurogenic paralytic ileus. Patients abdomen markedly more distended; flat plate showed obstruction NGT placed; NPO Serial Abdominal Exams Monitor output No surgical plans at this time Continue management per primary team D/W Dr. Azar Cameron PGY1 Surgery Note for Dr. Askew
--- NOTE | 2016-07-24 14:08 | RAD ---
HISTORY: SBO obstruction COMPARISON: 07/15/2016 FINDINGS: BOWEL: There is mild to moderate dilatation of both large and small bowel most consistent with ileus. The previous study showed greater dilatation of the small bowel. BONES: Normal. OTHER FINDINGS: None. IMPRESSION: There is mild to moderate dilatation of both large and small bowel most consistent with ileus. The previous study showed greater dilatation of the small bowel.
--- NOTE | 2016-07-24 14:39 | RAD ---
PROCEDURE: Portable chest HISTORY: NGT placement COMPARISON: TECHNIQUE: FINDINGS: Nasogastric tube is in satisfactory position IMPRESSION: Nasogastric tube in satisfactory position
--- NOTE | 2016-07-24 23:45 | PN ---
DATE: 07/24/2016 SUBJECTIVE: The patient is in bed in no acute distress, nontoxic. PHYSICAL EXAMINATION: VITAL SIGNS: Temperature is 98, blood pressure is 130/70, respiratory rate of 20, heart rate of 62. HEENT: Unremarkable. NECK: Supple. LUNGS: Have decreased breath sounds. HEART: Normal S1, S2. ABDOMEN: Soft. LABORATORY DATA: Reveals a white count of 3, hemoglobin of 10, platelets of 138. Chemistries reveal a BUN of 9, creatinine of 0.7. Procalcitonin is 0.12. Review of the orders reveals the patient to be on ceftriaxone. ASSESSMENT AND PLAN: This is a 51-year-old with epidural abscess secondary to Streptococcus pneumoni a associated with cord compression and lower extremity paralysis, status post neurosurgery for absces s drainage and laminectomy, postop day #17, complicated by a partial small-bowel obstruction, which i s resolving, currently on ceftriaxone. Will need prolonged antibiotics and weekly CBC, SMA-18, sed rate, and C-reactive protein. We will follow closely with you. Colt Coronel MD cc: [id number] TT: 07/24/2016 23:45:17 Confirmation # [id number] Dictation # [id number]
[2016-07-25] MEDS: Albuterol-Ipratrop 3 mg / 0.5 (3 ml) UD IH SCH ×4 (01:38→20:15)
[2016-07-25] MEDS: Heparin25000 units/250ml 1/2NS 250 ML IV PRN (06:01)
[2016-07-25 07:35] LABS: BASO # 0.03 K/mm3 (0.0-2.0); BASO % 0.8 % (0.0-3.0); EOS % 0.3 % (1.5-5.0); GRAN # 2.37 (1.4-6.5); GRAN % 64.7 % (50.0-68.0); HEMOGLOBIN 10.4 gm/dL (14.0-18.0); LYMPH # 0.8 (1.2-3.4); MEAN CELL VOLUME 89.7 fL (80.0-105.0); MEAN CORPUSCULAR HEMOGLOBIN 29.9 pg (25.0-35.0); MEAN CORPUSCULAR HGB CONC 33.3 g/dl (31.0-37.0); MEAN PLATELET VOLUME 11.9 fl (7.0-11.0); MONO # 0.4 (0.1-0.6); MONO % 11.2 % (1.0-6.0); PLATELET COUNT 136 10^3/uL (120.0-450.0); RBC 3.48 10^6/uL (3.5-6.1); WHITE BLOOD COUNT 3.7 10^3/ul (4.5-11.0)
[2016-07-25 08:01] LABS: ALB/GLOB RATIO 0.9 (1.1-1.8); ALBUMIN 3.3 g/dL (3.0-4.8); ALT/SGPT 68 U/L (7-56); AST/SGOT 42 U/L (15-59); BLOOD UREA NITROGEN 12 mg/dL (7-21); CALCIUM 8.5 mg/dL (8.4-10.5); GFR AFRICAN-AMERICAN > 60; GFR NON-AFRICAN AMERICAN > 60
--- NOTE | 2016-07-25 09:55 | CP.PCM.PN ---
<Keri Guzman - Last Filed: 07/25/16 13:41> Subjective - Date & Time of Evaluation Date of Evaluation: 07/25/16 Time of Evaluation: 09:52 - Subjective Subjective: HOSPITALIST PROGRESS NOTE Pt seen and examined. NG tube inserted yesterday and is not on suction as of this morning. Plan to remove today. Patient denies having any CP, SOB, N/V. Patient had 1 bm overnight. Objective - Vital Signs/Intake and Output Vital Signs (last 24 hours): Temp Pulse Resp BP Pulse Ox 99.8 F H 61 22 156/77 H 96 07/25/16 08:00 07/25/16 08:00 07/25/16 08:00 07/25/16 08:00 07/25/16 08:00 Intake and Output: 07/25/16 07/25/16 06:59 18:59 Intake Total 250 Output Total 1125 Balance -875 - Medications Medications: Current Medications Albuterol/Ipratropium (Duoneb 3 Mg/0.5 Mg (3 Ml) Ud) 3 ml IH [id number] ON LICENSE OF [facility] Last Admin: 07/25/16 07:51 Dose: Not Given Ascorbic Acid (Vitamin C 500 Mg Tab) 500 mg PO DAILY ON LICENSE OF [facility] Last Admin: 07/24/16 11:19 Dose: 500 mg Bisacodyl (Dulcolax) 10 mg RC Q8H PRN PRN Reason: Constipation Bisacodyl (Dulcolax) 5 mg PO DAILY ON LICENSE OF [facility] Ceftriaxone Sodium (Rocephin 2 Gm Ivpb) 100 mls @ 100 mls/hr IVPB Q12 DONAL PRN Reason: Protocol Stop: 08/08/16 10:01 Last Admin: 07/24/16 22:24 Dose: 100 mls/hr Heparin Sodium/Sodium Chloride (Heparin 96700 Units/250ml 1/2 Normal Saline) 250 mls @ 24.351 mls/hr IV .[id number] PRN; Protocol; 17 UNITS/KG/HR PRN Reason: ADJUST RATE PER PROTOCOL Last Admin: 07/25/16 06:01 Dose: 16.83 units/kg/hr, 24.3 mls/hr Lidocaine HCl (Lidocaine 2% Viscous) 15 ml PO Q2H PRN PRN Reason: Throat Pain Last Admin: 07/24/16 15:00 Dose: 15 ml Metoclopramide HCl (Reglan) 10 mg IVP Q6 ON LICENSE OF [facility] Last Admin: 07/25/16 06:02 Dose: 10 mg Metoprolol Tartrate (Lopressor) 25 mg PO BID ON LICENSE OF [facility] Last Admin: 07/24/16 18:14 Dose: Not Given Multivitamins/Minerals (Therapeutic-M Tab) 1 tab PO DAILY ON LICENSE OF [facility] Last Admin: 07/24/16 11:19 Dose: 1 tab Nicotine (Nicoderm Cq) 1 patch TD DAILY ON LICENSE OF [facility] Last Admin: 07/24/16 11:18 Dose: 1 patch Petrolatum (Desitin Maximum Strength Topical 40% Oint) 0.1 gm TOP BID ON LICENSE OF [facility] Last Admin: 07/24/16 18:15 Dose: Not Given Tramadol HCl (Ultram) 50 mg PO TID PRN PRN Reason: Pain, severe (8-10) Last Admin: 07/24/16 05:41 Dose: 50 mg Zinc Sulfate (Zinc Sulfate 220 Mg Cap) 220 mg PO DAILY ON LICENSE OF [facility] Last Admin: 07/24/16 11:19 Dose: 220 mg - Labs Labs: 07/25/16 07:00 07/25/16 07:00 PT 10.8 Seconds (9.9-11.8) 07/09/16 21:30 INR 1.00 (0.93-1.08) 07/09/16 21:30 APTT 64.0 Seconds (23.7-30.8) H 07/24/16 21:30 - Constitutional Appears: Non-toxic, No Acute Distress - Head Exam Head Exam: ATRAUMATIC - ENT Exam ENT Exam: Mucous Membranes Moist - Respiratory Exam Respiratory Exam: Rhonchi. absent: Rales, Wheezes - Cardiovascular Exam Cardiovascular Exam: REGULAR RHYTHM, +S1, +S2 - GI/Abdominal Exam GI & Abdominal Exam: Distended, Soft, Normal Bowel Sounds. absent: Rigid, Tenderness - Neurological Exam Neurological Exam: Alert, Awake, Oriented x3 - Psychiatric Exam Psychiatric exam: Normal Affect, Normal Mood - Skin Skin Exam: Dry, Intact, Normal Color, Warm Assessment and Plan - Assessment and Plan (Free Text) Assessment: 51 year old male with no significant past medical history is s/p T2-T4 lamenectomy on 07/07/16 US of LE showed R LE DVT s/p IVC filter Plan: 1. 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 for 4-6 weeks per ID recs -Tramadol prn -ID is consulted Workup: -Wound cultures grew strep pneumo -Pathology shows fragments of bone with no metastatic disease. See report for full details 2. 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 3. Neurogenic bowel vs. ileus - NG tube most likely to be removed today. will slowly advance diet. - Continue bowel regimen of Reglan 10 mg IV ACHS, Dulcolax PO and RC - Surgery is consulted. 5. Neurogenic bladder - Haque in place - Urology is consulted. - Will require suprapubic cath at some time in future 6. R LE DVT - IVC filter placed - Pt is on heparin drip and closely monitored for bleeding. Will hold off on starting coumadin right now. 7. Atypical CP - Resolved - Cardio is consulted Workup: - Echo showed EF of 63.5%, normal LV, trace AR, MR and TR 8. Iron deficiency anemia - Will cont to monitor at this time. H&H is stable Workup: - Iron 35 (low), TIBC 325 (normal), Ferritin 11 (low), Vit B12 327 (Normal), folate 7.8 (normal) 9. pressure ulcer on sacrum and buttock - air mattress - continue to reposition q2 - multivit, zinv, vitamin C PO ordered - Wound care pending 10. LOLA - Resolved 10. Prophylaxis - Protonix - heparin drip Dispo: Pt uninsured. Not eligible for rehab facility. Not qualify for [facility] of income above $[phone] Case discussed with attending Dr. Marc <Tutu Marc - Last Filed: 07/25/16 17:37> Objective - Vital Signs/Intake and Output Vital Signs (last 24 hours): Temp Pulse Resp BP Pulse Ox 99.5 F 64 22 150/82 97 07/25/16 15:35 07/25/16 17:03 07/25/16 15:35 07/25/16 17:03 07/25/16 15:35 Intake and Output: 07/25/16 07/25/16 06:59 18:59 Intake Total 250 Output Total 1125 Balance -875 - Medications Medications: Current Medications Albuterol/Ipratropium (Duoneb 3 Mg/0.5 Mg (3 Ml) Ud) 3 ml IH [id number] ON LICENSE OF [facility] Last Admin: 07/25/16 13:40 Dose: 3 ml Ascorbic Acid (Vitamin C 500 Mg Tab) 500 mg PO DAILY ON LICENSE OF [facility] Last Admin: 07/25/16 10:16 Dose: Not Given Bisacodyl (Dulcolax) 10 mg RC Q8H PRN PRN Reason: Constipation Bisacodyl (Dulcolax) 5 mg PO DAILY ON LICENSE OF [facility] Last Admin: 07/25/16 10:14 Dose: Not Given Ceftriaxone Sodium (Rocephin 2 Gm Ivpb) 100 mls @ 100 mls/hr IVPB Q12 DONAL PRN Reason: Protocol Stop: 08/08/16 10:01 Last Admin: 07/25/16 10:16 Dose: 100 mls/hr Lidocaine HCl (Lidocaine 2% Viscous) 15 ml PO Q2H PRN PRN Reason: Throat Pain Last Admin: 07/24/16 15:00 Dose: 15 ml Metoclopramide HCl (Reglan) 10 mg IVP Q6 ON LICENSE OF [facility] Last Admin: 07/25/16 17:04 Dose: 10 mg Metoprolol Tartrate (Lopressor) 25 mg PO BID ON LICENSE OF [facility] Last Admin: 07/25/16 17:03 Dose: 25 mg Multivitamins/Minerals (Therapeutic-M Tab) 1 tab PO DAILY ON LICENSE OF [facility] Last Admin: 07/25/16 10:16 Dose: Not Given Nicotine (Nicoderm Cq) 1 patch TD DAILY ON LICENSE OF [facility] Last Admin: 07/25/16 10:15 Dose: 1 patch Petrolatum (Desitin Maximum Strength Topical 40% Oint) 0.1 gm TOP BID ON LICENSE OF [facility] Last Admin: 07/25/16 17:17 Dose: 1 appl Tramadol HCl (Ultram) 50 mg PO TID PRN PRN Reason: Pain, severe (8-10) Last Admin: 07/24/16 05:41 Dose: 50 mg Zinc Sulfate (Zinc Sulfate 220 Mg Cap) 220 mg PO DAILY ON LICENSE OF [facility] Last Admin: 07/25/16 10:16 Dose: Not Given - Labs Labs: 07/25/16 07:00 07/25/16 07:00 PT 10.8 Seconds (9.9-11.8) 07/09/16 21:30 INR 1.00 (0.93-1.08) 07/09/16 21:30 APTT 64.0 Seconds (23.7-30.8) H 07/24/16 21:30 Attending/Attestation - Attestation I have personally seen and examined this patient.: Yes I have fully participated in the care of the patient.: Yes I have reviewed all pertinent clinical information, including history, physical exam and plan: Yes Notes (Text): I have seen and examined patient at bedside With resident. This is a 51 year old male with history of substance abuse (snorts cocaine), tobacco, alcohol use who got admitted for evaluation of back pain and found to have epidural abscess T1-T5, osteomyelitis, urinary retention and acute RLE DVT. He underwent emergent laminectomy and epidural abscess was drained. Wound culture is growing strep pneumonia. He is on rocephin. HIV negative. Pathology showed bone fragments and bone marrow. No evidence of carcinoma. He has no noticeable improvement in neurological function. He has abdominal distention and partial bowel obstruction due to paralytic ileus. Yesterday his abdomen was very much distended which got improved with NGT. Patients abdominal distension has improved somewhat and plan to remove NGT as per surgery. There is no plan for surgery. He is on heparin drip for acute RLE DVT and is s/p IVC filter. Will hold off on coumadin as his abdomen appears very distended. He has haque catheter for neurogenic bladder. Advised frequent turning to avoid pressure sores/continue wound care. Dr Tutu Marc
[2016-07-25] MEDS: Zinc Oxide Topical 40% Oint (Desitin) TOP SCH ×2 (10:14→17:17)
[2016-07-25] MEDS: Bisacodyl 5mg EC Tab PO SCH (10:14)
[2016-07-25] MEDS: Multivitamin With Minerals Tab PO SCH (10:16)
--- NOTE | 2016-07-25 11:03 | CP.PCM.PN ---
Subjective - Date & Time of Evaluation Date of Evaluation: 07/25/16 Time of Evaluation: 07:15 - Subjective Subjective: SURGERY PROGRESS NOTE FOR DR. BUNN 51M seen and examined at bedside, Patient denies abdominal pain, denies nausea, vomiting. NGT was placed yesterday for concern of increased distention, but has resolved today. Objective - Vital Signs/Intake and Output Vital Signs (last 24 hours): Temp Pulse Resp BP Pulse Ox 99.8 F H 61 22 156/77 H 96 07/25/16 08:00 07/25/16 08:00 07/25/16 08:00 07/25/16 08:00 07/25/16 08:00 Intake and Output: 07/25/16 07/25/16 06:59 18:59 Intake Total 250 Output Total 1125 Balance -875 - Medications Medications: Current Medications Albuterol/Ipratropium (Duoneb 3 Mg/0.5 Mg (3 Ml) Ud) 3 ml IH [id number] [facility] Last Admin: 07/25/16 07:51 Dose: Not Given Ascorbic Acid (Vitamin C 500 Mg Tab) 500 mg PO DAILY [facility] Last Admin: 07/25/16 10:16 Dose: Not Given Bisacodyl (Dulcolax) 10 mg RC Q8H PRN PRN Reason: Constipation Bisacodyl (Dulcolax) 5 mg PO DAILY [facility] Last Admin: 07/25/16 10:14 Dose: Not Given Ceftriaxone Sodium (Rocephin 2 Gm Ivpb) 100 mls @ 100 mls/hr IVPB Q12 DONAL PRN Reason: Protocol Stop: 08/08/16 10:01 Last Admin: 07/25/16 10:16 Dose: 100 mls/hr Heparin Sodium/Sodium Chloride (Heparin 22545 Units/250ml 1/2 Normal Saline) 250 mls @ 24.351 mls/hr IV .[id number] PRN; Protocol; 17 UNITS/KG/HR PRN Reason: ADJUST RATE PER PROTOCOL Last Admin: 07/25/16 06:01 Dose: 16.83 units/kg/hr, 24.3 mls/hr Lidocaine HCl (Lidocaine 2% Viscous) 15 ml PO Q2H PRN PRN Reason: Throat Pain Last Admin: 07/24/16 15:00 Dose: 15 ml Metoclopramide HCl (Reglan) 10 mg IVP Q6 [facility] Last Admin: 07/25/16 06:02 Dose: 10 mg Metoprolol Tartrate (Lopressor) 25 mg PO BID [facility] Last Admin: 07/25/16 10:15 Dose: Not Given Multivitamins/Minerals (Therapeutic-M Tab) 1 tab PO DAILY [facility] Last Admin: 07/25/16 10:16 Dose: Not Given Nicotine (Nicoderm Cq) 1 patch TD DAILY [facility] Last Admin: 07/25/16 10:15 Dose: 1 patch Petrolatum (Desitin Maximum Strength Topical 40% Oint) 0.1 gm TOP BID [facility] Last Admin: 07/25/16 10:14 Dose: 1 appl Tramadol HCl (Ultram) 50 mg PO TID PRN PRN Reason: Pain, severe (8-10) Last Admin: 07/24/16 05:41 Dose: 50 mg Zinc Sulfate (Zinc Sulfate 220 Mg Cap) 220 mg PO DAILY [facility] Last Admin: 07/25/16 10:16 Dose: Not Given - Labs Labs: 07/25/16 07:00 07/25/16 07:00 PT 10.8 Seconds (9.9-11.8) 07/09/16 21:30 INR 1.00 (0.93-1.08) 07/09/16 21:30 APTT 64.0 Seconds (23.7-30.8) H 07/24/16 21:30 - Constitutional Appears: Non-toxic, No Acute Distress - Respiratory Exam Respiratory Exam: Clear to Ausculation Bilateral, NORMAL BREATHING PATTERN - Cardiovascular Exam Cardiovascular Exam: REGULAR RHYTHM, +S1, +S2 - GI/Abdominal Exam GI & Abdominal Exam: Distended, Soft. absent: Firm, Guarding, Rigid, Tenderness , Rebound Additional comments: distention improving and abdomen is soft and nontender to touch Assessment and Plan - Assessment and Plan (Free Text) Assessment: 51M POD from 07/07 s/p emergent decompressing laminectomy T2-4 with residual neurogenic bladder and neurogenic paralytic ileus. Serial Abdominal Exams Monitor output possible DC NGT today, start liquids No surgical plans at this time Continue management per primary team Further recs discuss with Dr. Azar Hammer, PGY1
--- NOTE | 2016-07-25 11:16 | PN ---
DATE: 07/25/2016 LOCATION: [facility], bed #2. REASON FOR CONSULTATION AND FOLLOWUP: Status post spinal abscess drainage, DVT, status post CPR, int ubated, now successfully extubated, distention of abdomen. HISTORY OF PRESENT ILLNESS: The patient is a 51-year-old male admitted with a 1-week history of ches t pain radiating from the back to the front, found to be related to spinal abscess. After draining o f spinal abscess, pain was relieved. Also found to have DVT in the lower extremity. The patient the n developed distention of abdomen and had NG tube put in, and then NG tube was discontinued because t he patient improved, but yesterday again the patient had much more marked distention of abdomen and n ow NG tube is back because patient's clinical findings were consistent with ileus pattern. The patie nt is lying flat in bed without chest pain, shortness of breath, palpitation. PHYSICAL EXAMINATION: VITAL SIGNS: Blood pressure 156/77, respirations 22, pulse 61, temperature 99.8. HEAD: Normocephalic. EYES: Pupils normal. Conjunctivae slightly pale. NECK: JVP low. Carotid equal. THORAX: AP diameter normal. LUNGS: Clear. CARDIOVASCULAR: S1, S2. ABDOMEN: Still distended, but it is less than yesterday. EXTREMITIES: No clubbing, no cyanosis. LABORATORY DATA: WBC 3.7, hemoglobin 10.4, hematocrit 31.2, platelet 136. Sodium 133, potassium 3.3 , BUN 12, creatinine 0.7. Total bilirubin 0.5, AST 42, ALT 68. DIAGNOSES: Paraplegic, status post spinal abscess drainage, chest pain relieved after draining of sp inal abscess; abdominal distention, possible ileus; history of deep vein thrombosis. PLAN: The patient continues to have NG tube draining. The patient is on metoprolol 25 b.i.d., DuoNe b hand nebulizer therapy, heparin drip, ceftriaxone 2 gram IV q. 12 hours. Will continue present the rapy. Will follow with you. Jarrod Sumner MD cc: [id number] TT: 07/25/2016 11:15:19 Confirmation # [id number] Dictation # [id number] mn
--- NOTE | 2016-07-25 15:40 | PN ---
DATE: 07/25/2016 The patient is in bed, in no acute distress. Seen earlier this morning. PHYSICAL EXAMINATION: VITAL SIGNS: Temperature is 98, blood pressure is 150/70, respiratory rate 22. HEENT: Unremarkable. NECK: Supple. LUNGS: Have decreased breath sounds. HEART: Normal S1, S2. ABDOMEN: Soft, nontender. LABORATORY DATA: Reveals a white count of 3.7, hemoglobin of 10. BUN of 12, creatinine of 0.7. Uri nalysis is noted. Cultures are noted. ASSESSMENT AND PLAN: This is a 51-year-old with epidural abscess secondary to Streptococcus pneumoni ae associated with cord compression and lower extremity paralysis, status post neurosurgery abscess d rainage and laminectomy, postoperative day #18, complicated by small-bowel obstruction. Currently on ceftriaxone. Will need prolonged antibiotic therapy. Weekly CBC, SMA-18, sed rate and C-reactive p rotein. Will follow with you. Colt Coronel MD cc: [phone] TT: 07/25/2016 15:40:06 Confirmation # [id number] Dictation # [id number] mn
[2016-07-25] MEDS: Heparin25000 units/250ml 1/2NS 25,000 UNITS/250 ML BAG IV PRN (18:47)
--- NOTE | 2016-07-26 00:38 | CP.PCM.PN ---
Subjective - Date & Time of Evaluation Date of Evaluation: 07/26/16 Time of Evaluation: 06:10 - Subjective Subjective: General Surgery progress note for Dr. Askew Pt s/e at bedside this AM. NAEO. Tolerated CLD and had multiple large BM's of clear "jelly-like" stools per nursing over the past 24 hours. Denies any nausea , vomiting, abdominal pain, fevers, or chills. Per nursing patient has 2 new BL gluteal ulcers for which they are using optifoam Objective - Vital Signs/Intake and Output Vital Signs (last 24 hours): Temp Pulse Resp BP Pulse Ox 99.5 F 64 22 150/82 97 07/25/16 15:35 07/25/16 17:03 07/25/16 15:35 07/25/16 17:03 07/25/16 15:35 Intake and Output: 07/25/16 07/26/16 18:59 06:59 Intake Total 1011 Output Total 300 Balance 711 - Medications Medications: Current Medications Albuterol/Ipratropium (Duoneb 3 Mg/0.5 Mg (3 Ml) Ud) 3 ml IH [id number] COUNT [facility]CLUD[facility] Last Admin: 07/25/16 20:15 Dose: 3 ml Ascorbic Acid (Vitamin C 500 Mg Tab) 500 mg PO DAILY [facility] Last Admin: 07/25/16 10:16 Dose: Not Given Bisacodyl (Dulcolax) 10 mg RC Q8H PRN PRN Reason: Constipation Bisacodyl (Dulcolax) 5 mg PO DAILY [facility] Last Admin: 07/25/16 10:14 Dose: Not Given Ceftriaxone Sodium (Rocephin 2 Gm Ivpb) 100 mls @ 100 mls/hr IVPB Q12 DONAL PRN Reason: Protocol Stop: 08/08/16 10:01 Last Admin: 07/25/16 22:02 Dose: 100 mls/hr Heparin Sodium/Sodium Chloride (Heparin 76797 Units/250ml 1/2 Normal Saline) 25 ,000 units in 250 mls @ 25.98 mls/hr IV .[id number] PRN; Protocol; 18 UNITS/KG/HR PRN Reason: ADJUST RATE PER PROTOCOL Last Admin: 07/25/16 18:47 Dose: 16.83 units/kg/hr, 24.3 mls/hr Lidocaine HCl (Lidocaine 2% Viscous) 15 ml PO Q2H PRN PRN Reason: Throat Pain Last Admin: 07/24/16 15:00 Dose: 15 ml Metoclopramide HCl (Reglan) 10 mg IVP Q6 [facility] Last Admin: 07/25/16 17:04 Dose: 10 mg Metoprolol Tartrate (Lopressor) 25 mg PO BID [facility] Last Admin: 07/25/16 17:03 Dose: 25 mg Multivitamins/Minerals (Therapeutic-M Tab) 1 tab PO DAILY [facility] Last Admin: 07/25/16 10:16 Dose: Not Given Nicotine (Nicoderm Cq) 1 patch TD DAILY [facility] Last Admin: 07/25/16 10:15 Dose: 1 patch Petrolatum (Desitin Maximum Strength Topical 40% Oint) 0.1 gm TOP BID [facility]CLUD[facility] Last Admin: 07/25/16 17:17 Dose: 1 appl Tramadol HCl (Ultram) 50 mg PO TID PRN PRN Reason: Pain, severe (8-10) Last Admin: 07/24/16 05:41 Dose: 50 mg Zinc Sulfate (Zinc Sulfate 220 Mg Cap) 220 mg PO DAILY [facility] Last Admin: 07/25/16 10:16 Dose: Not Given - Labs Labs: 07/25/16 07:00 07/25/16 07:00 PT 10.8 Seconds (9.9-11.8) 07/09/16 21:30 INR 1.00 (0.93-1.08) 07/09/16 21:30 APTT 52.8 Seconds (23.7-30.8) H 07/25/16 19:45 - Constitutional Appears: Well, Non-toxic, No Acute Distress - Head Exam Head Exam: ATRAUMATIC, NORMOCEPHALIC - Eye Exam Eye Exam: Normal appearance. absent: Conjunctival injection, Scleral icterus - ENT Exam ENT Exam: Mucous Membranes Moist, Normal Oropharynx - Respiratory Exam Respiratory Exam: NORMAL BREATHING PATTERN. absent: Accessory Muscle Use, Respiratory Distress - Cardiovascular Exam Cardiovascular Exam: RRR - GI/Abdominal Exam GI & Abdominal Exam: Distended (Severe distention), Soft. absent: Guarding, Tenderness, Rebound - Rectal Exam Additional comments: mucoid stool output - Extremities Exam Extremities Exam: Pedal Edema (2+ pitting edema of the feet BL). absent: Calf Tenderness - Back Exam Additional comments: Diffuse erythematous skin over sacrum and BL buttocks, small stage 1 ulcer on the left buttock near the intergluteal cleft, 1 small stage 2 ulcers on the right buttock in the gluteal fold and another stage one ulcer approximately 3cm superior to it. - Neurological Exam Neurological Exam: Alert, Awake, Oriented x3 - Psychiatric Exam Psychiatric exam: Normal Affect, Normal Mood - Skin Skin Exam: Dry, Normal Color, Warm Assessment and Plan - Assessment and Plan (Free Text) Assessment: 51M POD19 s/p emergent decompressing laminectomy T2-4 for vertebral abscess with residual neurogenic bladder and neurogenic paralytic ileus. Multiple clear mucoid BM's Tolerating CLD New decubitus ulcers on BL buttocks Plan: Serial Abdominal Exams Monitor BM function Advance diet to FLD if tolerates CLD breakfast Air mattress, turn Q2, optifoam on ulcers Wound care consult No surgical plans at this time Continue management per primary team Further recs discuss with Dr. Azar Du, PGY1
[2016-07-26] MEDS: Albuterol-Ipratrop 3 mg / 0.5 (3 ml) UD IH SCH ×5 (01:18→22:04)
[2016-07-26] MEDS: Heparin25000 units/250ml 1/2NS 25,000 UNITS/250 ML BAG IV PRN ×2 (05:19→15:31)
[2016-07-26 08:10] LABS: BASO # 0.02 K/mm3 (0.0-2.0); BASO % 0.6 % (0.0-3.0); EOS % 0.9 % (1.5-5.0); GRAN # 2.03 (1.4-6.5); GRAN % 61.7 % (50.0-68.0); HEMOGLOBIN 10.2 gm/dL (14.0-18.0); LYMPH # 0.8 (1.2-3.4); LYMPH % 24.6 % (22.0-35.0); MEAN CELL VOLUME 89.3 fL (80.0-105.0); MEAN CORPUSCULAR HEMOGLOBIN 30.4 pg (25.0-35.0); MEAN PLATELET VOLUME 12.3 fl (7.0-11.0); MONO # 0.4 (0.1-0.6); MONO % 12.2 % (1.0-6.0); PLATELET COUNT 128 10^3/uL (120.0-450.0); RBC 3.36 10^6/uL (3.5-6.1); RED CELL DISTRIBUTION WIDTH 14.1 % (11.5-14.5); WHITE BLOOD COUNT 3.3 10^3/ul (4.5-11.0)
[2016-07-26 08:37] LABS: ALB/GLOB RATIO 0.9 (1.1-1.8); ALBUMIN 3.3 g/dL (3.0-4.8); ALT/SGPT 75 U/L (7-56); AST/SGOT 46 U/L (15-59); BLOOD UREA NITROGEN 14 mg/dL (7-21); CALCIUM 8.5 mg/dL (8.4-10.5); GFR AFRICAN-AMERICAN > 60; GFR NON-AFRICAN AMERICAN > 60
[2016-07-26] MEDS: Multivitamin With Minerals Tab PO SCH (09:53)
[2016-07-26] MEDS: Bisacodyl 5mg EC Tab PO SCH (09:53)
[2016-07-26] MEDS: Zinc Oxide Topical 40% Oint (Desitin) TOP SCH ×2 (09:54→17:18)
[2016-07-26] MEDS ORDERED: Potassium Chloride 40 mEq/30 ml LIQ UD PO ONE (10:24)
--- NOTE | 2016-07-26 11:54 | RAD ---
HISTORY: fever COMPARISON: Comparison chest dated 07/06/2016. Comparison also made with CT scan chest 07/08/2016. FINDINGS: LUNGS: Suspect minor bibasilar atelectasis right greater than left PLEURA: No significant pleural effusion identified, no pneumothorax apparent. CARDIOVASCULAR: Mild cardiomegaly. OSSEOUS STRUCTURES: No significant abnormalities. VISUALIZED UPPER ABDOMEN: Normal. OTHER FINDINGS: Multilevel laminectomy defects in the upper thoracic region again noted with overlying metallic skin closure eileen. Correlation with surgical history recommended. IMPRESSION: Suspect minor bibasilar atelectasis right greater than left. Multilevel laminectomy defects in the upper thoracic region again noted with overlying metallic skin closure eileen. Correlation with surgical history recommended.
--- NOTE | 2016-07-26 12:03 | PN ---
DATE: 07/26/2016 REASON FOR CONSULTATION AND FOLLOWUP: Status post spinal abscess, drainage, DVT, status post CPR, in tubated, now successfully extubated, distention of abdomen, paraplegic. BRIEF CLINICAL HISTORY: This is a 51-year-old male admitted with 1-week history of chest pain radiat ing from the back secondary to a spinal abscess, status post spinal abscess drainage and also found t o have a DVT, on heparin, developer distention of abdomen, acute abdomen, treated medically, also dev eloped paraplegia and now patient is paraplegic. Denies any chest pain, shortness of breath, any pal pitation. PHYSICAL EXAMINATION: VITAL SIGNS: Temperature afebrile, heart rate 70, blood pressure 142/81. HEENT: PERRLA. Extraocular muscles intact. NECK: Supple. No carotid bruits. No thyromegaly. CHEST: Clear to auscultation. HEART: S1, S2 regular. ABDOMEN: Soft. EXTREMITIES: Clubbing and cyanosis negative. LABORATORY DATA: Blood workup as follows: WBC 3.3, hemoglobin 10.2, hematocrit 30.0, platelet count 128. Chemistry shows sodium 131, potassium 3.5, chloride 97, carbon dioxide 24, anion gap of 14, BU N 14, creatinine 0.7. IMPRESSION: Paraplegia, hypokalemia, bedbound, abdominal distention, spinal abscess, status post abs cess drained, deep venous thrombosis of right lower extremity, ileus. RECOMMENDATION: Continue current treatment. Continue metoprolol. Continue dual nebulizer treatment . Continue respiratory treatment expand to the lung. Overall, the patient's condition and group home prognosis guarded, paraplegia. We will follow with you. Thank you, Dr. Marc, for providing the opportunity in taking care of the patient. Supplement potassi um, 40 mg ____ was given in the morning ____. We will follow with you. Jarrod Barbour MD cc: [phone] TT: 07/26/2016 12:02:46 Confirmation # [id number] Dictation # [id number]
--- NOTE | 2016-07-26 13:36 | CP.PCM.PN ---
<Aston Tran - Last Filed: 07/26/16 13:32> Subjective - Date & Time of Evaluation Date of Evaluation: 07/26/16 Time of Evaluation: 08:55 - Subjective Subjective: HOSPITALIST PROGRESS NOTE Pt seen and examined at bedside. No acute events over night. Pt was febrile to 100.8. Pt denies any nausea or vomiting. Tolerating clear liquids. Had loose BM today. Pt states that he has been getting spasm in his legs. Patient denies having any hernandez, dizziness, CP, SOB, abd pain, N/V urinary changes. Objective - Vital Signs/Intake and Output Vital Signs (last 24 hours): Temp Pulse Resp BP Pulse Ox 98.1 F 72 18 142/81 94 L 07/26/16 13:01 07/26/16 08:00 07/26/16 08:00 07/26/16 08:00 07/26/16 08:00 Intake and Output: 07/26/16 07/26/16 06:59 18:59 Intake Total 1261 Output Total 600 Balance 661 - Medications Medications: Current Medications Albuterol/Ipratropium (Duoneb 3 Mg/0.5 Mg (3 Ml) Ud) 3 ml IH [id number] [facility] Last Admin: 07/26/16 09:55 Dose: Not Given Ascorbic Acid (Vitamin C 500 Mg Tab) 500 mg PO DAILY [facility] Last Admin: 07/26/16 09:53 Dose: 500 mg Bisacodyl (Dulcolax) 10 mg RC Q8H PRN PRN Reason: Constipation Bisacodyl (Dulcolax) 5 mg PO DAILY [facility] Last Admin: 07/26/16 09:53 Dose: 5 mg Ceftriaxone Sodium (Rocephin 2 Gm Ivpb) 100 mls @ 100 mls/hr IVPB Q12 DONAL PRN Reason: Protocol Stop: 08/08/16 10:01 Last Admin: 07/26/16 09:52 Dose: 100 mls/hr Heparin Sodium/Sodium Chloride (Heparin 07779 Units/250ml 1/2 Normal Saline) 25 ,000 units in 250 mls @ 25.98 mls/hr IV .Q9H38M PRN; Protocol; 18 UNITS/KG/HR PRN Reason: ADJUST RATE PER PROTOCOL Last Admin: 07/26/16 05:19 Dose: 16.83 units/kg/hr, 24.291 mls/hr Lidocaine HCl (Lidocaine 2% Viscous) 15 ml PO Q2H PRN PRN Reason: Throat Pain Last Admin: 07/24/16 15:00 Dose: 15 ml Metoclopramide HCl (Reglan) 10 mg IVP Q6 [facility] Last Admin: 07/26/16 12:58 Dose: 10 mg Metoprolol Tartrate (Lopressor) 25 mg PO BID [facility] Last Admin: 07/26/16 09:53 Dose: 25 mg Multivitamins/Minerals (Therapeutic-M Tab) 1 tab PO DAILY [facility] Last Admin: 07/26/16 09:53 Dose: 1 tab Nicotine (Nicoderm Cq) 1 patch TD DAILY [facility] Last Admin: 07/26/16 09:53 Dose: 1 patch Petrolatum (Desitin Maximum Strength Topical 40% Oint) 0.1 gm TOP BID [facility] Last Admin: 07/26/16 09:54 Dose: 1 appl Tramadol HCl (Ultram) 50 mg PO TID PRN PRN Reason: Pain, severe (8-10) Last Admin: 07/24/16 05:41 Dose: 50 mg Zinc Sulfate (Zinc Sulfate 220 Mg Cap) 220 mg PO DAILY [facility] Last Admin: 07/26/16 09:53 Dose: 220 mg - Labs Labs: 07/26/16 08:00 07/26/16 08:00 PT 10.8 Seconds (9.9-11.8) 07/09/16 21:30 INR 1.00 (0.93-1.08) 07/09/16 21:30 APTT 79.5 Seconds (23.7-30.8) H* 07/26/16 08:00 - Constitutional Appears: No Acute Distress - Head Exam Head Exam: ATRAUMATIC - Eye Exam Eye Exam: EOMI, Normal appearance, PERRL Pupil Exam: NORMAL ACCOMODATION, PERRL - ENT Exam ENT Exam: Mucous Membranes Moist, Normal Exam - Neck Exam Neck Exam: Full ROM, Normal Inspection. absent: Lymphadenopathy - Respiratory Exam Respiratory Exam: Clear to Ausculation Bilateral, NORMAL BREATHING PATTERN. absent: Wheezes - Cardiovascular Exam Cardiovascular Exam: REGULAR RHYTHM, RRR, +S1, +S2. absent: Murmur - GI/Abdominal Exam GI & Abdominal Exam: Soft. absent: Distended, Tenderness - Extremities Exam Extremities Exam: Normal Capillary Refill, Pedal Edema (minor ). absent: Tenderness - Neurological Exam Neurological Exam: Alert, Awake, Oriented x3 - Psychiatric Exam Psychiatric exam: Normal Affect, Normal Mood - Skin Skin Exam: Dry, Intact, Normal Color, Warm Assessment and Plan - Assessment and Plan (Free Text) Assessment: 51 year old male with no significant past medical history is s/p T2-T4 lamenectomy on 07/07/16 US of LE showed R LE DVT s/p IVC filter 1. 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 for 4-6 weeks per ID recs -Tramadol prn -ID is consulted- Wound cultures grew strep pneumo -Pathology shows fragments of bone with no metastatic disease. See report for full details 2. 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 3. Neurogenic bowel vs. ileus - Tolerating clears - advance diet as per surgery - Continue bowel regimen of Reglan 10 mg IV ACHS, Dulcolax PO and RC - Surgery is consulted. 5. Neurogenic bladder - Haque in place - Urology is consulted - Will likely require suprapubic cath at some time in future 6. R LE DVT s/p IVC filter placed - On heparin drip and closely monitored for bleeding - Will hold off on starting coumadin right now 7. Atypical CP - Resolved - CXR - minor atalectasis R >L - Cardio is consulted - Echo showed EF of 63.5%, normal LV, trace AR, MR and TR 8. Iron deficiency anemia - Will cont to monitor - H&H is stable - Iron 35 (low), TIBC 325 (normal), Ferritin 11 (low), Vit B12 327 (Normal), folate 7.8 (normal) 9. pressure ulcer on sacrum and buttock - air mattress - continue to reposition q2 - multivit, zinv, vitamin C PO ordered - Wound care 10. LOLA - Resolved 11. Prophylaxis - Protonix - heparin drip Dispo: Pt uninsured. Not eligible for rehab facility. Not qualify for [facility] bc of income above $[id number] Case and plan was seen, reviewed, and discussed in detail with Dr Marc. <Tutu Marc B - Last Filed: 07/26/16 15:15> Objective - Vital Signs/Intake and Output Vital Signs (last 24 hours): Temp Pulse Resp BP Pulse Ox 98.1 F 72 18 142/81 94 L 07/26/16 13:01 07/26/16 08:00 07/26/16 08:00 07/26/16 08:00 07/26/16 08:00 Intake and Output: 07/26/16 07/26/16 06:59 18:59 Intake Total 1261 Output Total 600 Balance 661 - Medications Medications: Current Medications Albuterol/Ipratropium (Duoneb 3 Mg/0.5 Mg (3 Ml) Ud) 3 ml IH [id number] [facility] Last Admin: 07/26/16 14:03 Dose: 3 ml Ascorbic Acid (Vitamin C 500 Mg Tab) 500 mg PO DAILY [facility] Last Admin: 07/26/16 09:53 Dose: 500 mg Bisacodyl (Dulcolax) 10 mg RC Q8H PRN PRN Reason: Constipation Bisacodyl (Dulcolax) 5 mg PO DAILY [facility] Last Admin: 07/26/16 09:53 Dose: 5 mg Ceftriaxone Sodium (Rocephin 2 Gm Ivpb) 100 mls @ 100 mls/hr IVPB Q12 DOANL PRN Reason: Protocol Stop: 08/08/16 10:01 Last Admin: 07/26/16 09:52 Dose: 100 mls/hr Heparin Sodium/Sodium Chloride (Heparin 65437 Units/250ml 1/2 Normal Saline) 25 ,000 units in 250 mls @ 25.98 mls/hr IV .Q9H38M PRN; Protocol; 18 UNITS/KG/HR PRN Reason: ADJUST RATE PER PROTOCOL Last Admin: 07/26/16 05:19 Dose: 16.83 units/kg/hr, 24.291 mls/hr Lidocaine HCl (Lidocaine 2% Viscous) 15 ml PO Q2H PRN PRN Reason: Throat Pain Last Admin: 07/24/16 15:00 Dose: 15 ml Metoclopramide HCl (Reglan) 10 mg IVP Q6 [facility] Last Admin: 07/26/16 12:58 Dose: 10 mg Metoprolol Tartrate (Lopressor) 25 mg PO BID [facility] Last Admin: 07/26/16 09:53 Dose: 25 mg Multivitamins/Minerals (Therapeutic-M Tab) 1 tab PO DAILY [facility] Last Admin: 07/26/16 09:53 Dose: 1 tab Nicotine (Nicoderm Cq) 1 patch TD DAILY [facility] Last Admin: 07/26/16 09:53 Dose: 1 patch Petrolatum (Desitin Maximum Strength Topical 40% Oint) 0.1 gm TOP BID [facility] Last Admin: 07/26/16 09:54 Dose: 1 appl Tramadol HCl (Ultram) 50 mg PO TID PRN PRN Reason: Pain, severe (8-10) Last Admin: 07/24/16 05:41 Dose: 50 mg Zinc Sulfate (Zinc Sulfate 220 Mg Cap) 220 mg PO DAILY [facility] Last Admin: 07/26/16 09:53 Dose: 220 mg - Labs Labs: 07/26/16 08:00 07/26/16 08:00 PT 10.8 Seconds (9.9-11.8) 07/09/16 21:30 INR 1.00 (0.93-1.08) 07/09/16 21:30 APTT 79.5 Seconds (23.7-30.8) H* 07/26/16 08:00 Attending/Attestation - Attestation I have personally seen and examined this patient.: Yes I have fully participated in the care of the patient.: Yes I have reviewed all pertinent clinical information, including history, physical exam and plan: Yes Notes (Text): I have seen and examined patient at bedside With resident. This is a 51 year old male with history of substance abuse (snorts cocaine), tobacco, alcohol use who got admitted for evaluation of back pain and found to have epidural abscess T1-T5, osteomyelitis, urinary retention and acute RLE DVT. He underwent emergent laminectomy and epidural abscess was drained. Wound culture is growing strep pneumonia. He is on rocephin. HIV negative. Pathology showed bone fragments and bone marrow. No evidence of carcinoma. He has no noticeable improvement in neurological function however he has been getting involuntary spasms of his bilateral lower extremities. He also had abdominal distention and partial bowel obstruction due to paralytic ileus. Today his abdomen appears to be soft and less distended. He tolerated clear liquid diet. There is no plan for surgery. He is on heparin drip for acute RLE DVT and is s/p IVC filter. Will hold off on coumadin for now. He has haque catheter for neurogenic bladder. Advised frequent turning to avoid pressure sores/continue wound care. Dr Tutu Marc
--- NOTE | 2016-07-26 20:42 | PN ---
DATE: 07/26/2016 The patient is in bed in no acute distress, nontoxic. PHYSICAL EXAMINATION: VITAL SIGNS: Temperature is 97, blood pressure is 109/70, respiratory rate of 20, heart rate of 69. HEENT: Unremarkable. NECK: Supple. LUNGS: Have decreased breath sounds. HEART: Normal S1, S2. ABDOMEN: Soft, nontender. LABORATORY DATA: Reveals a white count of 3.3, hemoglobin of 10, platelets of 128, BUN of 14, creati nine of 0.7. Procalcitonin 0.12. Urinalysis is noted. Complement levels are noted. HIV is negative . Chest x-ray from today, minimal atelectasis. ASSESSMENT AND PLAN: This is a 51-year-old with an epidural abscess with Streptococcus pneumoniae as the organism, associated with cord compression, lower extremity paralysis, status post neurosurgery, drainage of an abscess and laminectomy, postoperative day #19, complicated by small-bowel obstructio n, currently on ceftriaxone. Will recommend CBC, SMA-18, sed rate, C-reactive protein once weekly. The patient will need prolonged antibiotic therapy. Will follow closely with you. Colt Coronel MD cc: [phone] TT: 07/26/2016 20:41:47 Confirmation # [id number] Dictation # [id number] erik
--- NOTE | 2016-07-27 00:15 | PCM.URO ---
Urology Progress Note - Objective Lab Results Last 24 Hours: Laboratory Results - last 24 hr 07/26/16 07/26/16 07/26/16 07:10 08:00 08:00 WBC 3.3 L RBC 3.36 L Hgb 10.2 L Hct 30.0 L MCV 89.3 MCH 30.4 MCHC 34.0 RDW 14.1 Plt Count 128 MPV 12.3 H Gran % 61.7 Lymph % (Auto) 24.6 Grimes % (Auto) 12.2 H Eos % (Auto) 0.9 L Baso % (Auto) 0.6 Gran # 2.03 Lymph # 0.8 L Grimes # 0.4 Eos # 0.0 Baso # 0.02 APTT Sodium 131 L Potassium 3.5 L Chloride 97 Carbon Dioxide 24 Anion Gap 14 BUN 14 Creatinine 0.7 Est GFR ( Amer) > 60 Est GFR (Non-Af Amer) > 60 POC Glucose (mg/dL) 97 Random Glucose 88 Calcium 8.5 Total Bilirubin 0.5 AST 46 ALT 75 H Alkaline Phosphatase 61 Total Protein 6.9 Albumin 3.3 Globulin 3.6 Albumin/Globulin Ratio 0.9 L 07/26/16 07/26/16 08:00 11:30 WBC RBC Hgb Hct MCV MCH MCHC RDW Plt Count MPV Gran % Lymph % (Auto) Grimes % (Auto) Eos % (Auto) Baso % (Auto) Gran # Lymph # Grimes # Eos # Baso # APTT 79.5 H* Sodium Potassium Chloride Carbon Dioxide Anion Gap BUN Creatinine Est GFR ( Amer) Est GFR (Non-Af Amer) POC Glucose (mg/dL) 101 Random Glucose Calcium Total Bilirubin AST ALT Alkaline Phosphatase Total Protein Albumin Globulin Albumin/Globulin Ratio Intake & Output: Intake & Output 07/26/16 07/26/16 07/27/16 06:59 18:59 06:59 Intake Total 1261 250 600 Output Total 600 300 Balance 661 250 300 Intake: IV 781 250 Left Antecubital 531 Oral 480 600 Output: Urine 600 300 Urethral (Mackenzie) 600 300 Other: # Bowel Movements 0 2 Vital Signs: Vital Signs - 24 hr 07/26/16 07/26/16 07/26/16 08:00 13:01 16:00 Temperature 99.7 F H 98.1 F 97.4 F L Pulse Rate 72 69 Respiratory 18 20 Rate Blood Pressure 142/81 109/74 O2 Sat by Pulse 94 L 96 Oximetry 07/26/16 17:17 Temperature Pulse Rate 77 Respiratory Rate Blood Pressure 110/75 O2 Sat by Pulse Oximetry
[2016-07-27] MEDS: Albuterol-Ipratrop 3 mg / 0.5 (3 ml) UD IH SCH ×4 (02:25→20:12)
[2016-07-27] MEDS: Heparin25000 units/250ml 1/2NS 25,000 UNITS/250 ML BAG IV PRN ×2 (06:14→17:31)
--- NOTE | 2016-07-27 08:05 | CP.PCM.PN ---
Subjective - Date & Time of Evaluation Date of Evaluation: 07/27/16 Time of Evaluation: 08:02 - Subjective Subjective: Surgery: Dr. Askew Pt seen and examined. Resting comfortably in bed. Pt is tolerating FLD. No N/V. Passing flatus and having BM. Pt is complaining of spastic twitching of B/L LE and is concerned if it is related to meds. Otherwise no complaints. Objective - Vital Signs/Intake and Output Vital Signs (last 24 hours): Temp Pulse Resp BP Pulse Ox 101.2 F H 71 20 159/76 H 95 07/27/16 07:30 07/27/16 07:30 07/27/16 07:30 07/27/16 07:30 07/27/16 07:30 Intake and Output: 07/27/16 07/27/16 06:59 18:59 Intake Total 1526 Output Total 300 Balance 1226 - Medications Medications: Current Medications Albuterol/Ipratropium (Duoneb 3 Mg/0.5 Mg (3 Ml) Ud) 3 ml IH O4DALEY [facility] Last Admin: 07/27/16 02:25 Dose: 3 ml Ascorbic Acid (Vitamin C 500 Mg Tab) 500 mg PO DAILY [facility] Last Admin: 07/26/16 09:53 Dose: 500 mg Bisacodyl (Dulcolax) 10 mg RC Q8H PRN PRN Reason: Constipation Bisacodyl (Dulcolax) 5 mg PO DAILY [facility] Last Admin: 07/26/16 09:53 Dose: 5 mg Ceftriaxone Sodium (Rocephin 2 Gm Ivpb) 100 mls @ 100 mls/hr IVPB Q12 DONAL PRN Reason: Protocol Stop: 08/08/16 10:01 Last Admin: 07/26/16 21:07 Dose: 100 mls/hr Heparin Sodium/Sodium Chloride (Heparin 96671 Units/250ml 1/2 Normal Saline) 25 ,000 units in 250 mls @ 25.98 mls/hr IV .Q9H38M PRN; Protocol; 18 UNITS/KG/HR PRN Reason: ADJUST RATE PER PROTOCOL Last Admin: 07/27/16 06:14 Dose: 16.83 units/kg/hr, 24.291 mls/hr Lidocaine HCl (Lidocaine 2% Viscous) 15 ml PO Q2H PRN PRN Reason: Throat Pain Last Admin: 07/24/16 15:00 Dose: 15 ml Metoclopramide HCl (Reglan) 10 mg IVP Q6 [facility] Last Admin: 07/27/16 06:36 Dose: 10 mg Metoprolol Tartrate (Lopressor) 25 mg PO BID [facility] Last Admin: 07/26/16 17:17 Dose: 25 mg Multivitamins/Minerals (Therapeutic-M Tab) 1 tab PO DAILY [facility] Last Admin: 07/26/16 09:53 Dose: 1 tab Nicotine (Nicoderm Cq) 1 patch TD DAILY [facility] Last Admin: 07/26/16 09:53 Dose: 1 patch Petrolatum (Desitin Maximum Strength Topical 40% Oint) 0.1 gm TOP BID [facility] Last Admin: 07/26/16 17:18 Dose: 1 appl Tramadol HCl (Ultram) 50 mg PO TID PRN PRN Reason: Pain, severe (8-10) Last Admin: 07/24/16 05:41 Dose: 50 mg Zinc Sulfate (Zinc Sulfate 220 Mg Cap) 220 mg PO DAILY [facility] Last Admin: 07/26/16 09:53 Dose: 220 mg - Labs Labs: 07/26/16 08:00 07/26/16 08:00 PT 10.8 Seconds (9.9-11.8) 07/09/16 21:30 INR 1.00 (0.93-1.08) 07/09/16 21:30 APTT 79.5 Seconds (23.7-30.8) H* 07/26/16 08:00 - Constitutional Appears: Non-toxic, No Acute Distress - Head Exam Head Exam: ATRAUMATIC, NORMOCEPHALIC Additional comments: no motor ticks or lip smacking noted - Eye Exam Eye Exam: EOMI - ENT Exam ENT Exam: Mucous Membranes Moist - Neck Exam Neck Exam: Full ROM - Respiratory Exam Respiratory Exam: NORMAL BREATHING PATTERN. absent: Accessory Muscle Use, Respiratory Distress - GI/Abdominal Exam GI & Abdominal Exam: Distended (baseline), Soft. absent: Guarding, Rigid, Tenderness, Rebound - Extremities Exam Extremities Exam: absent: Calf Tenderness, Pedal Edema - Neurological Exam Neurological Exam: Alert, Awake, Oriented x3 Assessment and Plan - Assessment and Plan (Free Text) Assessment: 51M w. neurogenic ileus 2/2 spinal abscess and developing decubitus ulcers -Will advance diet to regular -serial abd exams -spastic involuntary movements of B/L LE likely 2/2 spastic paralysis from spinal abscess, unlikely related to Reglan, will d.w attending -air mattress for decubit and reposition Q2H -will continue to follow -d/w attending Deangelo PGY2
[2016-07-27 08:42] LABS: ALB/GLOB RATIO 0.9 (1.1-1.8); ALBUMIN 3.2 g/dL (3.0-4.8); ALT/SGPT 74 U/L (7-56); AST/SGOT 44 U/L (15-59); BLOOD UREA NITROGEN 13 mg/dL (7-21); CALCIUM 8.4 mg/dL (8.4-10.5); GFR AFRICAN-AMERICAN > 60; GFR NON-AFRICAN AMERICAN > 60
[2016-07-27 08:55] LABS: BASO # 0.01 K/mm3 (0.0-2.0); BASO % 0.4 % (0.0-3.0); EOS # 0.1 (0.0-0.7); EOS % 1.8 % (1.5-5.0); GRAN # 1.83 (1.4-6.5); HEMOGLOBIN 10.5 gm/dL (14.0-18.0); LYMPH # 0.6 (1.2-3.4); LYMPH % 19.9 % (22.0-35.0); MEAN CELL VOLUME 89.5 fL (80.0-105.0); MEAN CORPUSCULAR HEMOGLOBIN 30.5 pg (25.0-35.0); MEAN CORPUSCULAR HGB CONC 34.1 g/dl (31.0-37.0); MEAN PLATELET VOLUME 12.6 fl (7.0-11.0); MONO # 0.3 (0.1-0.6); MONO % 11.9 % (1.0-6.0); PLATELET COUNT 116 10^3/uL (120.0-450.0); RBC 3.44 10^6/uL (3.5-6.1); RED CELL DISTRIBUTION WIDTH 14.1 % (11.5-14.5)
[2016-07-27 09:06] LABS: WHITE BLOOD COUNT 2.8 10^3/ul (4.5-11.0)
[2016-07-27] MEDS: Multivitamin With Minerals Tab PO SCH (11:17)
[2016-07-27] MEDS: Bisacodyl 5mg EC Tab PO SCH (11:18)
[2016-07-27] MEDS: Zinc Oxide Topical 40% Oint (Desitin) TOP SCH ×2 (11:18→17:08)
--- NOTE | 2016-07-27 12:15 | CP.PCM.PN ---
<Aston Tran - Last Filed: 07/27/16 12:08> Subjective - Date & Time of Evaluation Date of Evaluation: 07/27/16 Time of Evaluation: 08:15 - Subjective Subjective: HOSPITALIST PROGRESS NOTE Pt seen and examined at bedside. No acute events over night. Pt was febrile to 101.2. Tolerating diet. Pt still getting involuntary spasm in his legs. Patient denies having any hernandez, dizziness, CP, SOB, abd pain, N/V. Objective - Vital Signs/Intake and Output Vital Signs (last 24 hours): Temp Pulse Resp BP Pulse Ox 101.2 F H 71 20 159/76 H 95 07/27/16 07:30 07/27/16 07:30 07/27/16 07:30 07/27/16 07:30 07/27/16 07:30 Intake and Output: 07/27/16 07/27/16 06:59 18:59 Intake Total 1526 Output Total 300 Balance 1226 - Medications Medications: Current Medications Albuterol/Ipratropium (Duoneb 3 Mg/0.5 Mg (3 Ml) Ud) 3 ml IH [id number] [facility] Last Admin: 07/27/16 08:28 Dose: 3 ml Ascorbic Acid (Vitamin C 500 Mg Tab) 500 mg PO DAILY [facility] Last Admin: 07/27/16 11:17 Dose: 500 mg Bisacodyl (Dulcolax) 10 mg RC Q8H PRN PRN Reason: Constipation Bisacodyl (Dulcolax) 5 mg PO DAILY [facility] Last Admin: 07/27/16 11:18 Dose: 5 mg Ceftriaxone Sodium (Rocephin 2 Gm Ivpb) 100 mls @ 100 mls/hr IVPB Q12 DONAL PRN Reason: Protocol Stop: 08/08/16 10:01 Last Admin: 07/27/16 11:20 Dose: 100 mls/hr Heparin Sodium/Sodium Chloride (Heparin 04831 Units/250ml 1/2 Normal Saline) 25 ,000 units in 250 mls @ 25.98 mls/hr IV .Q9H38M PRN; Protocol; 18 UNITS/KG/HR PRN Reason: ADJUST RATE PER PROTOCOL Last Admin: 07/27/16 06:14 Dose: 16.83 units/kg/hr, 24.291 mls/hr Lidocaine HCl (Lidocaine 2% Viscous) 15 ml PO Q2H PRN PRN Reason: Throat Pain Last Admin: 07/24/16 15:00 Dose: 15 ml Metoclopramide HCl (Reglan) 10 mg IVP Q6 [facility] Last Admin: 07/27/16 11:17 Dose: 10 mg Metoprolol Tartrate (Lopressor) 25 mg PO BID [facility] Last Admin: 07/27/16 11:17 Dose: 25 mg Multivitamins/Minerals (Therapeutic-M Tab) 1 tab PO DAILY [facility] Last Admin: 07/27/16 11:17 Dose: 1 tab Nicotine (Nicoderm Cq) 1 patch TD DAILY [facility] Last Admin: 07/27/16 11:18 Dose: 1 patch Petrolatum (Desitin Maximum Strength Topical 40% Oint) 0.1 gm TOP BID [facility] Last Admin: 07/27/16 11:18 Dose: 1 appl Tramadol HCl (Ultram) 50 mg PO TID PRN PRN Reason: Pain, severe (8-10) Last Admin: 07/27/16 11:34 Dose: 50 mg Zinc Sulfate (Zinc Sulfate 220 Mg Cap) 220 mg PO DAILY [facility] Last Admin: 07/27/16 11:17 Dose: 220 mg - Labs Labs: 07/27/16 07:30 07/27/16 07:30 PT 10.8 Seconds (9.9-11.8) 07/09/16 21:30 INR 1.00 (0.93-1.08) 07/09/16 21:30 APTT 50.5 Seconds (23.7-30.8) H 07/27/16 07:30 - Constitutional Appears: No Acute Distress - Head Exam Head Exam: ATRAUMATIC, NORMAL INSPECTION, NORMOCEPHALIC - Eye Exam Eye Exam: EOMI, Normal appearance, PERRL - ENT Exam ENT Exam: Mucous Membranes Moist, Normal Exam - Neck Exam Neck Exam: Full ROM, Normal Inspection. absent: Lymphadenopathy - Respiratory Exam Respiratory Exam: Clear to Ausculation Bilateral, NORMAL BREATHING PATTERN. absent: Wheezes - Cardiovascular Exam Cardiovascular Exam: REGULAR RHYTHM, RRR, +S1, +S2 - GI/Abdominal Exam GI & Abdominal Exam: Soft. absent: Distended, Tenderness - Extremities Exam Extremities Exam: absent: Calf Tenderness - Back Exam Back Exam: NORMAL INSPECTION - Neurological Exam Neurological Exam: Alert, Awake, Oriented x3 - Psychiatric Exam Psychiatric exam: Normal Affect, Normal Mood - Skin Skin Exam: Dry, Intact, Normal Color, Warm Assessment and Plan - Assessment and Plan (Free Text) Assessment: 51 year old male with no significant past medical history is s/p T2-T4 lamenectomy on 07/07/16 US of LE showed R LE DVT s/p IVC filter 1. Epidural space abscess s/p lamenectomy T2-T4 on 07/07/16 - Pt has involuntary spasm of legs -Rocephin per ID recs. for 4-6 weeks per ID recs -Tramadol prn for pain - Wound cultures grew strep pneumo -Pathology; shows fragments of bone with no metastatic disease. See report for full details 2. 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 3. Neurogenic bowel vs. ileus - Tolerating clears - advance diet as per surgery - Continue bowel regimen of Reglan 10 mg IV ACHS, Dulcolax PO and RC - C. diff 07/24 negative 5. Neurogenic bladder - Haque in place - Urology dr Iqbal is consulted - Will likely require suprapubic cath at some time in future 6. R LE DVT s/p IVC filter placed - On heparin drip and closely monitored for bleeding - Consider starting coumadin tomorrow 7. Atypical CP - Resolved - CXR - minor atalectasis R >L - Cardio is consulted for recs - Echo showed EF of 63.5%, normal LV, trace AR, MR and TR 8. Iron deficiency anemia - Will cont to monitor - H&H is stable - Iron 35 (low), TIBC 325 (normal), Ferritin 11 (low), Vit B12 327 (Normal), folate 7.8 (normal) 9. pressure ulcer on sacrum and buttock - air mattress and continue to reposition q2H - multivit, zinv, vitamin C PO ordered - Wound care 10. LOLA - Resolved 11. Prophylaxis - Protonix - heparin drip Case and plan was seen, reviewed, and discussed in detail with Dr Piedra <Tobin Piedra - Last Filed: 07/27/16 14:06> Objective - Vital Signs/Intake and Output Vital Signs (last 24 hours): Temp Pulse Resp BP Pulse Ox 101.2 F H 71 20 159/76 H 95 07/27/16 07:30 07/27/16 07:30 07/27/16 07:30 07/27/16 07:30 07/27/16 07:30 Intake and Output: 07/27/16 07/27/16 06:59 18:59 Intake Total 1526 Output Total 300 Balance 1226 - Medications Medications: Current Medications Albuterol/Ipratropium (Duoneb 3 Mg/0.5 Mg (3 Ml) Ud) 3 ml IH [id number] [facility] Last Admin: 07/27/16 13:46 Dose: 3 ml Ascorbic Acid (Vitamin C 500 Mg Tab) 500 mg PO DAILY [facility] Last Admin: 07/27/16 11:17 Dose: 500 mg Bisacodyl (Dulcolax) 10 mg RC Q8H PRN PRN Reason: Constipation Bisacodyl (Dulcolax) 5 mg PO DAILY [facility] Last Admin: 07/27/16 11:18 Dose: 5 mg Ceftriaxone Sodium (Rocephin 2 Gm Ivpb) 100 mls @ 100 mls/hr IVPB Q12 DONAL PRN Reason: Protocol Stop: 08/08/16 10:01 Last Admin: 07/27/16 11:20 Dose: 100 mls/hr Heparin Sodium/Sodium Chloride (Heparin 96319 Units/250ml 1/2 Normal Saline) 25 ,000 units in 250 mls @ 25.98 mls/hr IV .Q9H38M PRN; Protocol; 18 UNITS/KG/HR PRN Reason: ADJUST RATE PER PROTOCOL Last Admin: 07/27/16 06:14 Dose: 16.83 units/kg/hr, 24.291 mls/hr Lidocaine HCl (Lidocaine 2% Viscous) 15 ml PO Q2H PRN PRN Reason: Throat Pain Last Admin: 07/24/16 15:00 Dose: 15 ml Metoclopramide HCl (Reglan) 10 mg IVP Q6 [facility] Last Admin: 07/27/16 11:17 Dose: 10 mg Metoprolol Tartrate (Lopressor) 25 mg PO BID [facility] Last Admin: 07/27/16 11:17 Dose: 25 mg Multivitamins/Minerals (Therapeutic-M Tab) 1 tab PO DAILY [facility] Last Admin: 07/27/16 11:17 Dose: 1 tab Nicotine (Nicoderm Cq) 1 patch TD DAILY [facility] Last Admin: 07/27/16 13:57 Dose: Not Given Petrolatum (Desitin Maximum Strength Topical 40% Oint) 0.1 gm TOP BID [facility] Last Admin: 07/27/16 11:18 Dose: 1 appl Tramadol HCl (Ultram) 50 mg PO TID PRN PRN Reason: Pain, severe (8-10) Last Admin: 07/27/16 11:34 Dose: 50 mg Zinc Sulfate (Zinc Sulfate 220 Mg Cap) 220 mg PO DAILY [facility] Last Admin: 07/27/16 11:17 Dose: 220 mg - Labs Labs: 07/27/16 07:30 07/27/16 07:30 PT 10.8 Seconds (9.9-11.8) 07/09/16 21:30 INR 1.00 (0.93-1.08) 07/09/16 21:30 APTT 50.5 Seconds (23.7-30.8) H 07/27/16 07:30 Attending/Attestation - Attestation I have personally seen and examined this patient.: Yes I have fully participated in the care of the patient.: Yes I have reviewed all pertinent clinical information, including history, physical exam and plan: Yes Notes (Text): 07/27/16 14:03 attending note; I have seen and examined patient at bedside With resident. This is a 51 year old male with history of substance abuse (snorts cocaine), tobacco, alcohol use who got admitted for evaluation of back pain and found to have epidural abscess T1-T5, osteomyelitis, urinary retention and acute RLE DVT. He underwent emergent laminectomy and epidural abscess was drained. Wound culture is growing strep pneumonia. He is on rocephin. HIV negative. Pathology showed bone fragments and bone marrow. No evidence of carcinoma. He has no noticeable improvement in neurological function however he has been getting involuntary spasms of his bilateral lower extremities. He also had abdominal distention and partial bowel obstruction due to paralytic ileus. Today his abdomen appears to be soft and less distended. He tolerated clear liquid diet.Had BM. He is on heparin drip for acute RLE DVT and is s/p IVC filter. He has haque catheter for neurogenic bladder. Advised frequent turning to avoid pressure sores/continue wound care. Patient had a max of 102 this morning. Blood culture, urine culture ordered. follow up closely.
[2016-07-27] MEDS ORDERED: Potassium Chloride 40 mEq/30 ml LIQ UD PO ONE (12:17)
--- NOTE | 2016-07-27 13:46 | PN ---
DATE: 07/27/2016 REASON FOR CONSULTATION AND FOLLOWUP: Status post spinal abscess drained, DVT, status post CPR, intu bated, now successfully extubated, paraplegic. BRIEF CLINICAL HISTORY: A 51-year-old male admitted with 1-week history of chest pain secondary to s ellie abscess, status post spinal abscess drained. Also found to have DVT, on heparin, history of of f and on small intestinal obstruction, paraplegic, incontinence of the bladder, loss of bowel and bow el control because of paraplegia. PHYSICAL EXAMINATION: VITAL SIGNS: Temperature afebrile, heart rate 71, blood pressure 110/75. HEENT: PERRLA. Extraocular muscles intact. NECK: Supple. No carotid bruits. No thyromegaly. CHEST: Clear to auscultation. HEART: S1, S2 regular. ABDOMEN: Soft. EXTREMITIES: Clubbing, cyanosis negative. BLOOD WORKUP: WBC 2.8, hemoglobin 10.8, hematocrit 30.8, platelet count 116. Chemistry shows sodium 130, potassium 3.2, chloride 99, carbon dioxide 24, anion gap of 13, BUN 13, creatinine 0.4. IMPRESSION: Hypokalemia, paraplegia, spinal abscess, small bowel obstruction, resolving, deep venous thrombosis. RECOMMENDATION: Continue heparin because patient is getting off and on obstruction, so cannot start Coumadin as surgical intervention may be needed. Supplement potassium. We will follow with yo u. Continue supportive care. We will follow with you. Thank you, Dr. Tutu Marc, for providing us the opportunity in taking care of the patient. Jarrod Barbour MD cc: [phone] TT: 07/27/2016 13:46:12 Confirmation # [id number] Dictation # [id number]
[2016-07-27] MEDS ORDERED: Vancomycin 2 GM in Sodium Chloride 0.9% 500 ML IVPB ONE (17:27)
--- NOTE | 2016-07-27 17:54 | PN ---
DATE: 07/27/2016 The patient is in bed in no acute distress. The patient had a new onset of fever. The patient was s een earlier this morning. PHYSICAL EXAMINATION: VITAL SIGNS: Temperature is 98, T-max was 101; blood pressure is 120/70, respiratory rate of 20, hea rt rate of 70. HEENT: Unremarkable. NECK: Supple. LUNGS: Have decreased breath sounds. HEART: Normal S1, S2. ABDOMEN: Soft and nontender. No organomegaly, no rebound, no guarding, no masses. LABORATORY DATA: Reveals the patient's white count of 2.8, hemoglobin of 10, platelets of 116. Chem istries reveal the BUN of 13 and creatinine of 0.6. The patient's chest x-ray from yesterday is note d. ASSESSMENT AND PLAN: This is a 51-year-old male with epidural abscess with Streptococcus pneumoniae as the organism, responsible for his epidural abscess, presenting with cord compression and lower ext remity paralysis, status post neurosurgery, drainage of the abscess and laminectomy, postoperative da y #20, now with a new fever of 101. Will discontinue the ceftriaxone and repeat byers cultures, blood, urine and sputum and a new procalcitonin. Will give a dose of vancomycin and start the patient on m eropenem pending repeat byers culture results and chest x-ray and procalcitonin etiology of this new fever. The case was discussed with PMD. Will follow with you. Will give 2 grams of vancomycin x 1 dose since the patient did have renal insufficiency during his hospitalization and follow the pat ient's repeat blood cultures and make further recommendations. Colt Coronel MD cc: [phone] TT: 07/27/2016 17:53:46 Confirmation # [id number] Dictation # [id number] dn
[2016-07-27] MEDS: Meropenem 1g/NS 100mL IVPB 1 GM/100 ML PIGGYBACK IVPB SCH (22:39)
[2016-07-28] MEDS: Albuterol-Ipratrop 3 mg / 0.5 (3 ml) UD IH SCH ×4 (01:30→19:38)
[2016-07-28] MEDS: Heparin25000 units/250ml 1/2NS 25,000 UNITS/250 ML BAG IV PRN ×3 (03:54→19:58)
[2016-07-28] MEDS: Meropenem 1g/NS 100mL IVPB 1 GM/100 ML PIGGYBACK IVPB SCH ×3 (06:09→22:02)
--- NOTE | 2016-07-28 07:02 | PN ---
DATE: 07/25/2016 The patient is currently resting comfortably. NG tube noted. From urology standpoint, the patient has been diagnosed, most recently was diagnosed with urinary ret ention. See the plans listed below. PAST MEDICAL, SURGICAL, PHYSICAL EXAM: All no major changes. All noted on the chart. DIAGNOSES voiding dysfunction. From a standpoint, there is no interim changes, we are going to follow along. Then make recommendations depending on how the patient is doing clinically, but for now, no changes a re noted. Willie Iqbal MD cc: [phone] TT: 07/28/2016 07:01:54 Confirmation # [id number] Dictation # [id number] jn
[2016-07-28 07:14] LABS: BASO # 0.01 K/mm3 (0.0-2.0); BASO % 0.4 % (0.0-3.0); EOS # 0.1 (0.0-0.7); EOS % 3.9 % (1.5-5.0); GRAN # 1.18 (1.4-6.5); GRAN % 50.6 % (50.0-68.0); HEMOGLOBIN 9.8 gm/dL (14.0-18.0); LYMPH # 0.7 (1.2-3.4); LYMPH % 29.6 % (22.0-35.0); MEAN CELL VOLUME 89.3 fL (80.0-105.0); MEAN CORPUSCULAR HEMOGLOBIN 30.1 pg (25.0-35.0); MEAN CORPUSCULAR HGB CONC 33.7 g/dl (31.0-37.0); MEAN PLATELET VOLUME 12.5 fl (7.0-11.0); MONO # 0.4 (0.1-0.6); MONO % 15.5 % (1.0-6.0); PLATELET COUNT 114 10^3/uL (120.0-450.0); RBC 3.26 10^6/uL (3.5-6.1); RED CELL DISTRIBUTION WIDTH 14.1 % (11.5-14.5)
[2016-07-28 07:16] LABS: ALB/GLOB RATIO 0.9 (1.1-1.8); ALBUMIN 3.1 g/dL (3.0-4.8); ALT/SGPT 75 U/L (7-56); AST/SGOT 38 U/L (15-59); BLOOD UREA NITROGEN 10 mg/dL (7-21); CALCIUM 8.4 mg/dL (8.4-10.5); GFR AFRICAN-AMERICAN > 60; GFR NON-AFRICAN AMERICAN > 60
[2016-07-28 07:45] LABS: WHITE BLOOD COUNT 2.3 10^3/ul (4.5-11.0)
[2016-07-28] MEDS ORDERED: Potassium Chloride 20 mEq ER Tab PO ONE ×2 (10:24→11:16)
[2016-07-28] MEDS: Bisacodyl 5mg EC Tab PO SCH (10:50)
[2016-07-28] MEDS: Multivitamin With Minerals Tab PO SCH (10:50)
[2016-07-28] MEDS: Zinc Oxide Topical 40% Oint (Desitin) TOP SCH (11:00)
--- NOTE | 2016-07-28 11:23 | CP.PCM.PN ---
<Keri Guzman - Last Filed: 07/28/16 11:19> Subjective - Date & Time of Evaluation Date of Evaluation: 07/28/16 Time of Evaluation: 11:20 - Subjective Subjective: HOSPITALIST PROGRESS NOTE Pt is seen and examined at bedside. No acute events overnight. Pt afebrile overnight and this morning. 1 BM this morning. Patient is tolerating diet. Denies having any CP, SOB, NH, N/V. Objective - Vital Signs/Intake and Output Vital Signs (last 24 hours): Temp Pulse Resp BP Pulse Ox 98.5 F 66 20 119/65 95 07/28/16 08:24 07/28/16 08:24 07/28/16 08:24 07/28/16 08:24 07/28/16 08:24 Intake and Output: 07/28/16 07/28/16 06:59 18:59 Intake Total 250 250 Output Total 600 Balance -350 250 - Medications Medications: Current Medications Albuterol/Ipratropium (Duoneb 3 Mg/0.5 Mg (3 Ml) Ud) 3 ml IH [id number] [facility] Last Admin: 07/28/16 07:35 Dose: 3 ml Ascorbic Acid (Vitamin C 500 Mg Tab) 500 mg PO DAILY [facility] Last Admin: 07/28/16 10:51 Dose: 500 mg Bisacodyl (Dulcolax) 10 mg RC Q8H PRN PRN Reason: Constipation Bisacodyl (Dulcolax) 5 mg PO DAILY [facility] Last Admin: 07/28/16 10:50 Dose: 5 mg Heparin Sodium/Sodium Chloride (Heparin 78964 Units/250ml 1/2 Normal Saline) 25 ,000 units in 250 mls @ 25.98 mls/hr IV .Q9H38M PRN; Protocol; 18 UNITS/KG/HR PRN Reason: ADJUST RATE PER PROTOCOL Last Admin: 07/28/16 10:16 Dose: 13.83 units/kg/hr, 19.961 mls/hr Meropenem 1g/NS 100mL IVPB (Meropenem 1g/Ns 100ml Ivpb) 1 gm in 100 mls @ 100 mls/hr IVPB Q8 DONAL PRN Reason: Protocol Stop: 08/05/16 22:01 Last Admin: 07/28/16 06:09 Dose: 100 mls/hr Potassium Chloride (Potassium Chloride 10 Meq/100 Ml) 10 meq in 100 mls @ 100 mls/hr IVPB Q2H [facility] Stop: 07/28/16 14:29 Lidocaine HCl (Lidocaine 2% Viscous) 15 ml PO Q2H PRN PRN Reason: Throat Pain Last Admin: 07/24/16 15:00 Dose: 15 ml Metoclopramide HCl (Reglan) 10 mg IVP Q6 [facility] Last Admin: 07/28/16 06:09 Dose: 10 mg Metoprolol Tartrate (Lopressor) 25 mg PO BID [facility] Last Admin: 07/28/16 10:51 Dose: 25 mg Multivitamins/Minerals (Therapeutic-M Tab) 1 tab PO DAILY [facility] Last Admin: 07/28/16 10:50 Dose: 1 tab Nicotine (Nicoderm Cq) 1 patch TD DAILY [facility] Last Admin: 07/28/16 10:58 Dose: Not Given Pantoprazole Sodium (Protonix Inj) 40 mg IVP DAILY [facility] Last Admin: 07/28/16 10:50 Dose: 40 mg Petrolatum (Desitin Maximum Strength Topical 40% Oint) 0.1 gm TOP BID [facility] Last Admin: 07/27/16 17:08 Dose: 1 appl Tramadol HCl (Ultram) 50 mg PO TID PRN PRN Reason: Pain, severe (8-10) Last Admin: 07/27/16 11:34 Dose: 50 mg Zinc Sulfate (Zinc Sulfate 220 Mg Cap) 220 mg PO DAILY [facility] Last Admin: 07/28/16 10:51 Dose: 220 mg - Labs Labs: 07/28/16 06:30 07/28/16 06:30 PT 10.8 Seconds (9.9-11.8) 07/09/16 21:30 INR 1.00 (0.93-1.08) 07/09/16 21:30 APTT 134.0 Seconds (23.7-30.8) H* 07/28/16 06:30 - Constitutional Appears: Non-toxic, No Acute Distress - Head Exam Head Exam: ATRAUMATIC - Eye Exam Eye Exam: EOMI - ENT Exam ENT Exam: Mucous Membranes Moist - Respiratory Exam Respiratory Exam: Rhonchi. absent: Rales, Wheezes - Cardiovascular Exam Cardiovascular Exam: REGULAR RHYTHM, +S1, +S2 - GI/Abdominal Exam GI & Abdominal Exam: Distended, Soft. absent: Firm, Guarding, Rigid, Tenderness - Neurological Exam Neurological Exam: Alert, Awake, Oriented x3 - Psychiatric Exam Psychiatric exam: Normal Affect, Normal Mood - Skin Skin Exam: Dry, Intact, Normal Color, Warm Assessment and Plan - Assessment and Plan (Free Text) Assessment: 51 year old male with no significant past medical history is s/p T2-T4 lamenectomy on 07/07/16 US of LE showed R LE DVT s/p IVC filter 1. Epidural space abscess s/p lamenectomy T2-T4 on 07/07/16 - Pt has involuntary spasm of legs -Antibiotics changed per ID recs: vanco and meropenem -Tramadol prn for pain - Wound cultures grew strep pneumo -Pathology; shows fragments of bone with no metastatic disease. See report for full details 2. 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 3. Neurogenic bowel vs. ileus - Started pt on full diet. Will monitor closely - Continue bowel regimen of Reglan 10 mg IV ACHS, Dulcolax PO and RC - C. diff 07/24 negative 5. Neurogenic bladder - Haque in place - Urology dr Iqbal is consulted - Will likely require suprapubic cath at some time in future 6. R LE DVT s/p IVC filter placed - On heparin drip and closely monitored for bleeding - Will wait to start coumadin 7. Atypical CP - Resolved - CXR - minor atalectasis R >L - Cardio is consulted for recs - Echo showed EF of 63.5%, normal LV, trace AR, MR and TR 8. Iron deficiency anemia - Will cont to monitor - H&H is stable - Iron 35 (low), TIBC 325 (normal), Ferritin 11 (low), Vit B12 327 (Normal), folate 7.8 (normal) 9. multiple stage 1 pressure ulcer on sacrum and buttock - air mattress and continue to reposition q2H - multivit, zinv, vitamin C PO ordered - Wound care is consulted 10. LOLA - Resolved 11. Leukopenia - 2/2 spinal abscess vs. pressure ulcers - Will continue abx per ID rec - Repeat procal is negative - Repeat blood and urine cultures sent, await results Prophylaxis - Protonix - heparin drip Case and plan was seen, reviewed, and discussed in detail with Dr Piedra <Tobin Piedra - Last Filed: 07/28/16 15:05> Objective - Vital Signs/Intake and Output Vital Signs (last 24 hours): Temp Pulse Resp BP Pulse Ox 98.5 F 66 20 119/65 95 07/28/16 08:24 07/28/16 08:24 07/28/16 08:24 07/28/16 08:24 07/28/16 08:24 Intake and Output: 07/28/16 07/28/16 06:59 18:59 Intake Total 250 890 Output Total 600 1300 Balance -350 -410 - Medications Medications: Current Medications Albuterol/Ipratropium (Duoneb 3 Mg/0.5 Mg (3 Ml) Ud) 3 ml IH [id number] [facility] Last Admin: 07/28/16 13:30 Dose: 3 ml Ascorbic Acid (Vitamin C 500 Mg Tab) 500 mg PO DAILY [facility] Last Admin: 07/28/16 10:51 Dose: 500 mg Bisacodyl (Dulcolax) 10 mg RC Q8H PRN PRN Reason: Constipation Bisacodyl (Dulcolax) 5 mg PO DAILY [facility] Last Admin: 07/28/16 10:50 Dose: 5 mg Heparin Sodium/Sodium Chloride (Heparin 67361 Units/250ml 1/2 Normal Saline) 25 ,000 units in 250 mls @ 25.98 mls/hr IV .Q9H38M PRN; Protocol; 18 UNITS/KG/HR PRN Reason: ADJUST RATE PER PROTOCOL Last Admin: 07/28/16 10:16 Dose: 13.83 units/kg/hr, 19.961 mls/hr Meropenem 1g/NS 100mL IVPB (Meropenem 1g/Ns 100ml Ivpb) 1 gm in 100 mls @ 100 mls/hr IVPB Q8 DONAL PRN Reason: Protocol Stop: 08/05/16 22:01 Last Admin: 07/28/16 13:08 Dose: 100 mls/hr Lidocaine HCl (Lidocaine 2% Viscous) 15 ml PO Q2H PRN PRN Reason: Throat Pain Last Admin: 07/24/16 15:00 Dose: 15 ml Metoclopramide HCl (Reglan) 10 mg IVP Q6 [facility] Last Admin: 07/28/16 13:00 Dose: 10 mg Metoprolol Tartrate (Lopressor) 25 mg PO BID [facility] Last Admin: 07/28/16 10:51 Dose: 25 mg Multivitamins/Minerals (Therapeutic-M Tab) 1 tab PO DAILY [facility] Last Admin: 07/28/16 10:50 Dose: 1 tab Nicotine (Nicoderm Cq) 1 patch TD DAILY [facility] Last Admin: 07/28/16 10:58 Dose: Not Given Pantoprazole Sodium (Protonix Inj) 40 mg IVP DAILY [facility] Last Admin: 07/28/16 10:50 Dose: 40 mg Petrolatum (Desitin Maximum Strength Topical 40% Oint) 0.1 gm TOP BID [facility] Last Admin: 07/28/16 11:00 Dose: 1 appl Tramadol HCl (Ultram) 50 mg PO TID PRN PRN Reason: Pain, severe (8-10) Last Admin: 07/27/16 11:34 Dose: 50 mg Zinc Sulfate (Zinc Sulfate 220 Mg Cap) 220 mg PO DAILY [facility] Last Admin: 07/28/16 10:51 Dose: 220 mg - Labs Labs: 07/28/16 06:30 07/28/16 06:30 PT 10.8 Seconds (9.9-11.8) 07/09/16 21:30 INR 1.00 (0.93-1.08) 07/09/16 21:30 APTT 134.0 Seconds (23.7-30.8) H* 07/28/16 06:30 Attending/Attestation - Attestation I have personally seen and examined this patient.: Yes I have fully participated in the care of the patient.: Yes I have reviewed all pertinent clinical information, including history, physical exam and plan: Yes Notes (Text): 07/28/16 15:02 attending note; I have seen and examined patient at bedside With resident. This is a 51 year old male with history of substance abuse (snorts cocaine), tobacco, alcohol use who got admitted for evaluation of back pain and found to have epidural abscess T1-T5, osteomyelitis, urinary retention and acute RLE DVT. He underwent emergent laminectomy and epidural abscess was drained. Wound culture is growing strep pneumonia. He is on rocephin. HIV negative. Pathology showed bone fragments and bone marrow. No evidence of carcinoma. He has no noticeable improvement in neurological function however he has been getting involuntary spasms of his bilateral lower extremities. He also had abdominal distention and partial bowel obstruction due to paralytic ileus. Today his abdomen appears to be soft and less distended. He tolerated Full liquid diet.Had BM. He is on heparin drip for acute RLE DVT and is s/p IVC filter. He has haque catheter for neurogenic bladder. Advised frequent turning to avoid pressure sores/air mattress /continue wound care. Patient had a max of 102 yesterday. Currently afebrile and nontoxic. Blood culture is negative so far .urine culture ordered. follow up closely. Chest x-ray showed atelectasis. Currently patient is on Meropenem. Got 1 dose of IV vancomycin. Case discussed with [employer] for discharge planning.
--- NOTE | 2016-07-28 11:36 | PN ---
DATE: 07/28/2016 The patient is in room 571, bed 2. REASON FOR CONSULTATION AND FOLLOWUP: Status post spinal abscess, which has been drained, DVT, statu s post CPR, intubated, now successfully extubated, paraplegia. HISTORY OF PRESENT ILLNESS: The patient is a 51-year-old male admitted with 1-week history of chest pain secondary to spinal abscess. It was radiating from back to the front, status post spinal absces s drained, and after draining of spinal abscess, the patient's chest pain was relieved. History of o ff and on small-bowel obstruction, paraplegia, incontinence of the bladder, loss of bowel control bec ause of paraplegia. The patient is lying flat in bed without any chest pain, shortness of breath, or palpitation. PHYSICAL EXAMINATION: VITAL SIGNS: Blood pressure 119/65, respirations 20, pulse 66, temperature 98.5. HEAD: Normocephalic. EYES: Pupils are normal. Conjunctivae are slightly pale. NECK: JVP low. Carotids equal. THORAX: AP diameter normal. LUNGS: Clear. CARDIOVASCULAR: S1, S2. ABDOMEN: Protuberant. No organomegaly. EXTREMITIES: No clubbing, no cyanosis. LABORATORY DATA: WBC 2.3, hemoglobin 9.8, hematocrit 29.1, platelets 114. Sodium 133 ____ is 132, p otassium 3.3, BUN 10, creatinine 0.6, AST 38, ALT 75. Total protein 6.7, albumin 3.1. DIAGNOSES: Hypokalemia, paraplegia, spinal abscess, small-bowel obstruction, resolved, deep vein thr ombosis. PLAN: We will give extra potassium today, and we will continue heparin drip, metoprolol 25 b.i.d., m eropenem 1 gram IV q. 8 hours, Protonix 40 mg IV daily. We will give 40 p.o. and 2 IV K-riders, and we will repeat lab in the morning. We will follow with you. Jarrod Sumner MD cc: [phone] TT: 07/28/2016 11:35:58 Confirmation # [id number] Dictation # [id number] jn
--- NOTE | 2016-07-28 14:10 | CP.PCM.PN ---
Subjective - Date & Time of Evaluation Date of Evaluation: 07/28/16 Time of Evaluation: 07:30 - Subjective Subjective: Surgery Progress note. Dr. Askew Pt seen and examined at bedside. Still continues to report BMs. Tolerating diet. Denies any new complaints. No N/V/D. No Abd Pain. Objective - Vital Signs/Intake and Output Vital Signs (last 24 hours): Temp Pulse Resp BP Pulse Ox 98.5 F 66 20 119/65 95 07/28/16 08:24 07/28/16 08:24 07/28/16 08:24 07/28/16 08:24 07/28/16 08:24 Intake and Output: 07/28/16 07/28/16 06:59 18:59 Intake Total 250 250 Output Total 600 Balance -350 250 - Medications Medications: Current Medications Albuterol/Ipratropium (Duoneb 3 Mg/0.5 Mg (3 Ml) Ud) 3 ml IH [id number] [facility] Last Admin: 07/28/16 13:30 Dose: 3 ml Ascorbic Acid (Vitamin C 500 Mg Tab) 500 mg PO DAILY [facility] Last Admin: 07/28/16 10:51 Dose: 500 mg Bisacodyl (Dulcolax) 10 mg RC Q8H PRN PRN Reason: Constipation Bisacodyl (Dulcolax) 5 mg PO DAILY [facility] Last Admin: 07/28/16 10:50 Dose: 5 mg Heparin Sodium/Sodium Chloride (Heparin 64111 Units/250ml 1/2 Normal Saline) 25 ,000 units in 250 mls @ 25.98 mls/hr IV .Q9H38M PRN; Protocol; 18 UNITS/KG/HR PRN Reason: ADJUST RATE PER PROTOCOL Last Admin: 07/28/16 10:16 Dose: 13.83 units/kg/hr, 19.961 mls/hr Meropenem 1g/NS 100mL IVPB (Meropenem 1g/Ns 100ml Ivpb) 1 gm in 100 mls @ 100 mls/hr IVPB Q8 DONAL PRN Reason: Protocol Stop: 08/05/16 22:01 Last Admin: 07/28/16 13:08 Dose: 100 mls/hr Potassium Chloride (Potassium Chloride 10 Meq/100 Ml) 10 meq in 100 mls @ 100 mls/hr IVPB Q2H [facility] Stop: 07/28/16 14:29 Last Admin: 07/28/16 13:08 Dose: 100 mls/hr Lidocaine HCl (Lidocaine 2% Viscous) 15 ml PO Q2H PRN PRN Reason: Throat Pain Last Admin: 07/24/16 15:00 Dose: 15 ml Metoclopramide HCl (Reglan) 10 mg IVP Q6 [facility] Last Admin: 07/28/16 13:00 Dose: 10 mg Metoprolol Tartrate (Lopressor) 25 mg PO BID [facility] Last Admin: 07/28/16 10:51 Dose: 25 mg Multivitamins/Minerals (Therapeutic-M Tab) 1 tab PO DAILY [facility] Last Admin: 07/28/16 10:50 Dose: 1 tab Nicotine (Nicoderm Cq) 1 patch TD DAILY [facility] Last Admin: 07/28/16 10:58 Dose: Not Given Pantoprazole Sodium (Protonix Inj) 40 mg IVP DAILY [facility] Last Admin: 07/28/16 10:50 Dose: 40 mg Petrolatum (Desitin Maximum Strength Topical 40% Oint) 0.1 gm TOP BID [facility] Last Admin: 07/28/16 11:00 Dose: 1 appl Tramadol HCl (Ultram) 50 mg PO TID PRN PRN Reason: Pain, severe (8-10) Last Admin: 07/27/16 11:34 Dose: 50 mg Zinc Sulfate (Zinc Sulfate 220 Mg Cap) 220 mg PO DAILY [facility] Last Admin: 07/28/16 10:51 Dose: 220 mg - Labs Labs: 07/28/16 06:30 07/28/16 06:30 PT 10.8 Seconds (9.9-11.8) 07/09/16 21:30 INR 1.00 (0.93-1.08) 07/09/16 21:30 APTT 134.0 Seconds (23.7-30.8) H* 07/28/16 06:30 - Constitutional Appears: Well, No Acute Distress - Head Exam Head Exam: ATRAUMATIC, NORMAL INSPECTION, NORMOCEPHALIC - Eye Exam Eye Exam: EOMI - ENT Exam ENT Exam: Mucous Membranes Moist - Respiratory Exam Respiratory Exam: NORMAL BREATHING PATTERN - Cardiovascular Exam Cardiovascular Exam: absent: JVD - GI/Abdominal Exam GI & Abdominal Exam: Distended, Soft - Extremities Exam Additional comments: No Motor fxn, no sensory fxn to both lower extremities - Neurological Exam Neurological Exam: Alert, Awake - Skin Skin Exam: Dry, Intact, Normal Color, Warm Assessment and Plan - Assessment and Plan (Free Text) Assessment: 51yo M with 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 Azar Cash PGY1 surgery pager: [phone]
--- NOTE | 2016-07-28 20:06 | PN ---
DATE: 07/28/2016 The patient is in bed in no acute distress, nontoxic. PHYSICAL EXAMINATION: VITAL SIGNS: Temperature is 98, blood pressure is 125/70, respiratory rate of 16. HEENT: Unremarkable. NECK: Supple. LUNGS: Have decreased breath sounds. HEART: Normal S1, S2. ABDOMEN: Soft, nontender. LABORATORY DATA: Reveals a white count of 2.3, hemoglobin is noted. BUN of 10, creatinine of 0.6 an d procalcitonin 0.08, blood cultures are no growth from yesterday. Repeat procalcitonin which was do ne yesterday is 0.08. ASSESSMENT AND PLAN: This is a 51-year-old male admitted with an epidural abscess which has grown St reptococcus pneumoniae with epidural abscess, status post cord compression and status post neurosurge ry laminectomy and drainage of the abscess and lower extremity paralysis with postop day #21. Yester day he developed a new fever and the repeat blood culture is negative. Urine cultures are negative. Chest x-ray noted and procalcitonin was normal. Currently on vancomycin and meropenem. Must rule o ut a drug fever also and will follow closely with you. Check on the repeat byers cultures. The patien t was given 1 dose of vancomycin due to her hospitalization that the patient had renal failure. Will continue the meropenem for now. Will need prolonged antibiotic therapy for the strep pneumoniae, ep idural abscess. Colt Coronel MD cc: [phone] TT: 07/28/2016 20:05:02 Confirmation # [id number] Dictation # [id number] cristina
[2016-07-29] MEDS ORDERED: Heparin25000 units/250ml 1/2NS 25,000 UNITS/250 ML BAG IV PRN ×2 (02:33→02:49)
[2016-07-29] MEDS: Albuterol-Ipratrop 3 mg / 0.5 (3 ml) UD IH SCH ×5 (02:35→23:37)
[2016-07-29] MEDS: Meropenem 1g/NS 100mL IVPB 1 GM/100 ML PIGGYBACK IVPB SCH ×3 (06:24→21:19)
[2016-07-29 07:32] LABS: BASO # 0.02 K/mm3 (0.0-2.0); BASO % 0.7 % (0.0-3.0); EOS # 0.1 (0.0-0.7); EOS % 3.5 % (1.5-5.0); GRAN # 1.34 (1.4-6.5); GRAN % 46.7 % (50.0-68.0); HEMOGLOBIN 10.1 gm/dL (14.0-18.0); LYMPH # 1.1 (1.2-3.4); LYMPH % 38.3 % (22.0-35.0); MEAN CORPUSCULAR HGB CONC 33.7 g/dl (31.0-37.0); MEAN PLATELET VOLUME 12.1 fl (7.0-11.0); MONO # 0.3 (0.1-0.6); MONO % 10.8 % (1.0-6.0); PLATELET COUNT 118 10^3/uL (120.0-450.0); RBC 3.37 10^6/uL (3.5-6.1); RED CELL DISTRIBUTION WIDTH 14.3 % (11.5-14.5)
[2016-07-29 07:34] LABS: WHITE BLOOD COUNT 2.9 10^3/ul (4.5-11.0)
[2016-07-29 07:45] LABS: ALB/GLOB RATIO 0.9 (1.1-1.8); ALBUMIN 3.3 g/dL (3.0-4.8); ALT/SGPT 78 U/L (7-56); AST/SGOT 41 U/L (15-59); BLOOD UREA NITROGEN 9 mg/dL (7-21); CALCIUM 8.4 mg/dL (8.4-10.5); GFR AFRICAN-AMERICAN > 60; GFR NON-AFRICAN AMERICAN > 60
--- NOTE | 2016-07-29 10:04 | CP.PCM.PN ---
<Keri Guzman - Last Filed: 07/29/16 13:26> Subjective - Date & Time of Evaluation Date of Evaluation: 07/29/16 Time of Evaluation: 09:59 - Subjective Subjective: HOSPITALIST PROGRESS NOTE Pt is seen and examined at bedside. 1 BM this am, loose in nature. Patient is currently getting physical therapy with an attempt to out of bed to chair. Patient denies having any abd pain, N/V, fevers, chills. Objective - Vital Signs/Intake and Output Vital Signs (last 24 hours): Temp Pulse Resp BP Pulse Ox 98.3 F 66 20 134/68 95 07/29/16 08:36 07/29/16 08:36 07/29/16 08:36 07/29/16 08:36 07/29/16 08:36 Intake and Output: 07/29/16 07/29/16 06:59 18:59 Intake Total 1210 Output Total 1900 Balance -690 - Medications Medications: Current Medications Albuterol/Ipratropium (Duoneb 3 Mg/0.5 Mg (3 Ml) Ud) 3 ml IH [id number] [facility] Last Admin: 07/29/16 07:26 Dose: 3 ml Ascorbic Acid (Vitamin C 500 Mg Tab) 500 mg PO DAILY [facility] Last Admin: 07/28/16 10:51 Dose: 500 mg Bisacodyl (Dulcolax) 10 mg RC Q8H PRN PRN Reason: Constipation Bisacodyl (Dulcolax) 5 mg PO DAILY [facility] Last Admin: 07/28/16 10:50 Dose: 5 mg Enoxaparin Sodium (Lovenox) 120 mg SC Q12H [facility] PRN Reason: Protocol Meropenem 1g/NS 100mL IVPB (Meropenem 1g/Ns 100ml Ivpb) 1 gm in 100 mls @ 100 mls/hr IVPB Q8 [facility] PRN Reason: Protocol Stop: 08/05/16 22:01 Last Admin: 07/29/16 06:24 Dose: 100 mls/hr Potassium Chloride (Potassium Chloride 10 Meq/100 Ml) 10 meq in 100 mls @ 100 mls/hr IVPB Q2H [facility] Stop: 07/29/16 12:29 Lidocaine HCl (Lidocaine 2% Viscous) 15 ml PO Q2H PRN PRN Reason: Throat Pain Last Admin: 07/24/16 15:00 Dose: 15 ml Metoclopramide HCl (Reglan) 10 mg IVP Q6 [facility] Last Admin: 07/29/16 06:23 Dose: 10 mg Metoprolol Tartrate (Lopressor) 25 mg PO BID [facility] Last Admin: 07/28/16 18:14 Dose: Not Given Multivitamins/Minerals (Therapeutic-M Tab) 1 tab PO DAILY [facility] Last Admin: 07/28/16 10:50 Dose: 1 tab Nicotine (Nicoderm Cq) 1 patch TD DAILY [facility] Last Admin: 07/28/16 10:58 Dose: Not Given Pantoprazole Sodium (Protonix Inj) 40 mg IVP DAILY [facility] Last Admin: 07/28/16 10:50 Dose: 40 mg Petrolatum (Desitin Maximum Strength Topical 40% Oint) 0.1 gm TOP BID [facility] Last Admin: 07/28/16 11:00 Dose: 1 appl Tramadol HCl (Ultram) 50 mg PO TID PRN PRN Reason: Pain, severe (8-10) Last Admin: 07/27/16 11:34 Dose: 50 mg Zinc Sulfate (Zinc Sulfate 220 Mg Cap) 220 mg PO DAILY [facility] Last Admin: 07/28/16 10:51 Dose: 220 mg - Labs Labs: 07/29/16 07:00 07/29/16 07:00 PT 10.8 Seconds (9.9-11.8) 07/09/16 21:30 INR 1.00 (0.93-1.08) 07/09/16 21:30 APTT 59.9 Seconds (23.7-30.8) H 07/29/16 07:00 - Constitutional Appears: Non-toxic, No Acute Distress - Head Exam Head Exam: ATRAUMATIC - ENT Exam ENT Exam: Mucous Membranes Moist - Respiratory Exam Respiratory Exam: Rhonchi. absent: Accessory Muscle Use, Rales, Wheezes, Respiratory Distress - Cardiovascular Exam Cardiovascular Exam: REGULAR RHYTHM, +S1, +S2. absent: Gallop, Rubs, Murmur - GI/Abdominal Exam GI & Abdominal Exam: Distended, Soft. absent: Firm, Guarding, Rigid, Tenderness - Extremities Exam Extremities Exam: absent: Pedal Edema, Tenderness - Neurological Exam Neurological Exam: Alert, Awake, Oriented x3 - Psychiatric Exam Psychiatric exam: Normal Affect, Normal Mood - Skin Skin Exam: Dry, Intact, Normal Color, Warm Assessment and Plan - Assessment and Plan (Free Text) Assessment: 51 year old male with no significant past medical history is s/p T2-T4 lamenectomy on 07/07/16 US of LE showed R LE DVT s/p IVC filter 1. Epidural space abscess s/p lamenectomy T2-T4 on 07/07/16 - Pt has involuntary spasm of legs -Antibiotics changed per ID recs: vanco and meropenem -Tramadol prn for pain - Wound cultures grew strep pneumo -Pathology; shows fragments of bone with no metastatic disease. See report for full details 2. 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 3. Neurogenic bowel vs. ileus - Full diet but will monitor closely - Continue bowel regimen of Reglan 10 mg IV ACHS, Dulcolax PO and RC - C. diff 07/24 negative 5. Neurogenic bladder - Haque in place - Urology dr Iqbal is consulted - Will likely require suprapubic cath at some time in future 6. R LE DVT s/p IVC filter placed - Stopped heparin today. Switched to lovenox 120 mg q12. Will monitor closely. - Will wait to start coumadin 7. Atypical CP - Resolved - CXR 07/26 - minor atalectasis R >L - Cardio is consulted for recs - Echo showed EF of 63.5%, normal LV, trace AR, MR and TR 8. Iron deficiency anemia - Will cont to monitor - H&H is stable - Iron 35 (low), TIBC 325 (normal), Ferritin 11 (low), Vit B12 327 (Normal), folate 7.8 (normal) 9. multiple stage 2 pressure ulcer on sacrum and buttock - air mattress and continue to reposition q2H - multivit, zinv, vitamin C PO ordered - Wound care is consulted 10. LOLA - Resolved 11. Leukopenia - improving - 2/2 spinal abscess vs. pressure ulcers - Will continue abx per ID rec - Repeat procal is negative - Repeat blood and urine cultures sent, await results Prophylaxis - Protonix - heparin drip Case and plan was seen, reviewed, and discussed in detail with Dr Piedra <Tobin Piedra - Last Filed: 07/29/16 15:27> Objective - Vital Signs/Intake and Output Vital Signs (last 24 hours): Temp Pulse Resp BP Pulse Ox 98.3 F 66 20 134/68 95 07/29/16 08:36 07/29/16 10:14 07/29/16 08:36 07/29/16 10:14 07/29/16 08:36 Intake and Output: 07/29/16 07/29/16 06:59 18:59 Intake Total 1210 480 Output Total 1900 540 Balance -690 -60 - Medications Medications: Current Medications Albuterol/Ipratropium (Duoneb 3 Mg/0.5 Mg (3 Ml) Ud) 3 ml IH [id number] [facility] Last Admin: 07/29/16 13:19 Dose: 3 ml Ascorbic Acid (Vitamin C 500 Mg Tab) 500 mg PO DAILY [facility] Last Admin: 07/29/16 10:17 Dose: 500 mg Bisacodyl (Dulcolax) 10 mg RC Q8H PRN PRN Reason: Constipation Bisacodyl (Dulcolax) 5 mg PO DAILY [facility] Last Admin: 07/29/16 10:33 Dose: 5 mg Enoxaparin Sodium (Lovenox) 120 mg SC Q12H [facility] PRN Reason: Protocol Last Admin: 07/29/16 10:32 Dose: 120 mg Meropenem 1g/NS 100mL IVPB (Meropenem 1g/Ns 100ml Ivpb) 1 gm in 100 mls @ 100 mls/hr IVPB Q8 DONAL PRN Reason: Protocol Stop: 08/05/16 22:01 Last Admin: 07/29/16 13:39 Dose: 100 mls/hr Lidocaine HCl (Lidocaine 2% Viscous) 15 ml PO Q2H PRN PRN Reason: Throat Pain Last Admin: 07/24/16 15:00 Dose: 15 ml Metoclopramide HCl (Reglan) 10 mg IVP Q6 [facility] Last Admin: 07/29/16 11:52 Dose: 10 mg Metoprolol Tartrate (Lopressor) 25 mg PO BID [facility] Last Admin: 07/29/16 10:14 Dose: 25 mg Multivitamins/Minerals (Therapeutic-M Tab) 1 tab PO DAILY [facility] Last Admin: 07/29/16 10:17 Dose: 1 tab Nicotine (Nicoderm Cq) 1 patch TD DAILY [facility] Last Admin: 07/29/16 11:15 Dose: Not Given Pantoprazole Sodium (Protonix Inj) 40 mg IVP DAILY [facility] Last Admin: 07/29/16 10:17 Dose: 40 mg Petrolatum (Desitin Maximum Strength Topical 40% Oint) 0.1 gm TOP BID [facility] Last Admin: 07/29/16 10:13 Dose: 1 appl Tramadol HCl (Ultram) 50 mg PO TID PRN PRN Reason: Pain, severe (8-10) Last Admin: 07/29/16 10:33 Dose: 50 mg Zinc Sulfate (Zinc Sulfate 220 Mg Cap) 220 mg PO DAILY [facility] Last Admin: 07/29/16 10:18 Dose: 220 mg - Labs Labs: 07/29/16 07:00 07/29/16 07:00 PT 10.8 Seconds (9.9-11.8) 07/09/16 21:30 INR 1.00 (0.93-1.08) 07/09/16 21:30 APTT 36.9 Seconds (23.7-30.8) H 07/29/16 11:55 Attending/Attestation - Attestation I have personally seen and examined this patient.: Yes I have fully participated in the care of the patient.: Yes I have reviewed all pertinent clinical information, including history, physical exam and plan: Yes Notes (Text): 07/29/16 15:24 attending note; I have seen and examined patient at bedside With resident. This is a 51 year old male with history of substance abuse (snorts cocaine), tobacco, alcohol use who got admitted for evaluation of back pain and found to have epidural abscess T1-T5, osteomyelitis, urinary retention and acute RLE DVT. He underwent emergent laminectomy and epidural abscess was drained. Wound culture is growing strep pneumonia. He has no noticeable improvement in neurological function however he has been getting involuntary spasms of his bilateral lower extremities. GOt out of bed and stood for few seconds with PT today. He also had abdominal distention and partial bowel obstruction due to paralytic ileus. currently tolerating well. He is on lovenox for acute RLE DVT and is s/p IVC filter. Case discussed with Dr. Wong in detail. We will start Coumadin. Mild thrombocytopenia; monitor closely. He has haque catheter for neurogenic bladder. Advised frequent turning to avoid pressure sores/air mattress /continue wound care. Currently afebrile and nontoxic. Blood culture is negative so far .urine culture is negative .follow up closely. Chest x-ray showed atelectasis. Currently patient is on Meropenem. Got 1 dose of IV vancomycin. Case discussed with trimming caser for discharge planning. 07/29/16 15:27
[2016-07-29] MEDS: Zinc Oxide Topical 40% Oint (Desitin) TOP SCH ×2 (10:13→17:19)
[2016-07-29] MEDS: Multivitamin With Minerals Tab PO SCH (10:17)
[2016-07-29] MEDS: Enoxaparin 120 mg Syringe SC SCH ×2 (10:32→21:19)
[2016-07-29] MEDS: Bisacodyl 5mg EC Tab PO SCH (10:33)
[2016-07-29] MEDS ORDERED: Potassium Chloride 20 mEq/15 ml LIQ UD PO STA (13:02)
--- NOTE | 2016-07-29 13:35 | PN ---
DATE: 07/29/2016 The patient is lying flat. Denies any chest pain, shortness of breath, any palpitation. PHYSICAL EXAMINATION: As follows: VITAL SIGNS: Temperature afebrile, heart rate 60, blood pressure 130/80. HEENT: PERRLA. Extraocular muscles intact. NECK: Supple. No carotid bruits. No thyromegaly. CHEST: Clear to auscultation. HEART: S1, S2 regular. ABDOMEN: Soft. EXTREMITIES: Clubbing and cyanosis negative. BLOOD WORKUP: Pending as the computer has downtime, unable to retrieve the blood workup. IMPRESSION: Paraplegia, history of spinal abscess, history of drainage of the abscess, chest pain in itially ____ secondary to spinal abscess, history of respiratory failure, successfully extubated; sma ll-bowel obstruction resolving, deep venous thrombosis. RECOMMENDATION: Continue heparin. Continue supplement potassium as needed. We will follow the bloo d workup when is available. Supplement electrolytes as needed. We will follow with you. Jarrod Barbour MD cc: [phone] TT: 07/29/2016 13:33:58 Confirmation # [id number] Dictation # [id number]
[2016-07-29 15:48] LABS: INR 1.08 (0.93-1.08); PROTHROMBIN TIME 11.7 Seconds (9.9-11.8)
--- NOTE | 2016-07-29 21:20 | CP.PCM.PN ---
Subjective - Date & Time of Evaluation Date of Evaluation: 07/29/16 Time of Evaluation: 10:20 - Subjective Subjective: Comfortable in bed, not in distress, currently afebrile. Objective - Vital Signs/Intake and Output Vital Signs (last 24 hours): Temp Pulse Resp BP Pulse Ox 98.3 F 66 20 134/68 95 07/29/16 08:36 07/29/16 10:14 07/29/16 08:36 07/29/16 10:14 07/29/16 08:36 Intake and Output: 07/29/16 07/29/16 06:59 18:59 Intake Total 1210 Output Total 1900 Balance -690 - Medications Medications: Current Medications Albuterol/Ipratropium (Duoneb 3 Mg/0.5 Mg (3 Ml) Ud) 3 ml IH [id number] [facility] Last Admin: 07/29/16 07:26 Dose: 3 ml Ascorbic Acid (Vitamin C 500 Mg Tab) 500 mg PO DAILY [facility] Last Admin: 07/29/16 10:17 Dose: 500 mg Bisacodyl (Dulcolax) 10 mg RC Q8H PRN PRN Reason: Constipation Bisacodyl (Dulcolax) 5 mg PO DAILY [facility] Last Admin: 07/28/16 10:50 Dose: 5 mg Enoxaparin Sodium (Lovenox) 120 mg SC Q12H [facility] PRN Reason: Protocol Meropenem 1g/NS 100mL IVPB (Meropenem 1g/Ns 100ml Ivpb) 1 gm in 100 mls @ 100 mls/hr IVPB Q8 [facility] PRN Reason: Protocol Stop: 08/05/16 22:01 Last Admin: 07/29/16 06:24 Dose: 100 mls/hr Potassium Chloride (Potassium Chloride 10 Meq/100 Ml) 10 meq in 100 mls @ 100 mls/hr IVPB Q2H [facility] Stop: 07/29/16 12:29 Last Admin: 07/29/16 10:16 Dose: 100 mls/hr Lidocaine HCl (Lidocaine 2% Viscous) 15 ml PO Q2H PRN PRN Reason: Throat Pain Last Admin: 07/24/16 15:00 Dose: 15 ml Metoclopramide HCl (Reglan) 10 mg IVP Q6 [facility] Last Admin: 07/29/16 06:23 Dose: 10 mg Metoprolol Tartrate (Lopressor) 25 mg PO BID [facility] Last Admin: 07/29/16 10:14 Dose: 25 mg Multivitamins/Minerals (Therapeutic-M Tab) 1 tab PO DAILY [facility] Last Admin: 07/29/16 10:17 Dose: 1 tab Nicotine (Nicoderm Cq) 1 patch TD DAILY [facility] Last Admin: 07/29/16 10:15 Dose: 1 patch Pantoprazole Sodium (Protonix Inj) 40 mg IVP DAILY [facility] Last Admin: 07/29/16 10:17 Dose: 40 mg Petrolatum (Desitin Maximum Strength Topical 40% Oint) 0.1 gm TOP BID [facility] Last Admin: 07/29/16 10:13 Dose: 1 appl Tramadol HCl (Ultram) 50 mg PO TID PRN PRN Reason: Pain, severe (8-10) Last Admin: 07/27/16 11:34 Dose: 50 mg Zinc Sulfate (Zinc Sulfate 220 Mg Cap) 220 mg PO DAILY [facility] Last Admin: 07/29/16 10:18 Dose: 220 mg - Labs Labs: 07/29/16 07:00 07/29/16 07:00 PT 10.8 Seconds (9.9-11.8) 07/09/16 21:30 INR 1.00 (0.93-1.08) 07/09/16 21:30 APTT 59.9 Seconds (23.7-30.8) H 07/29/16 07:00 - Constitutional Appears: Non-toxic, No Acute Distress - Head Exam Head Exam: NORMAL INSPECTION - ENT Exam ENT Exam: Mucous Membranes Moist - Neck Exam Neck Exam: absent: Lymphadenopathy, Meningismus - Cardiovascular Exam Cardiovascular Exam: +S1, +S2 - GI/Abdominal Exam GI & Abdominal Exam: Soft. 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 with associated cord compression and lower extremity paralysis S/P neurosurgery for abscess drainage and laminectomy POD #22; new onset fever R/O new onset sepsis Partial small bowel obstruction, slowly improving significant smoking history alcohol abuse obesity with BMI 40 Plan Continue Vancomycin and Meropenem pending final culture results; if cultures are negative and the patient continues to be afebrile, will switch back to Rocephin Will continue to follow clinically
[2016-07-30] MEDS: Albuterol-Ipratrop 3 mg / 0.5 (3 ml) UD IH SCH ×4 (01:43→19:58)
[2016-07-30] MEDS: Meropenem 1g/NS 100mL IVPB 1 GM/100 ML PIGGYBACK IVPB SCH (06:17)
[2016-07-30 07:09] LABS: ALB/GLOB RATIO 0.9 (1.1-1.8); ALBUMIN 3.1 g/dL (3.0-4.8); ALT/SGPT 77 U/L (7-56); AST/SGOT 43 U/L (15-59); BLOOD UREA NITROGEN 9 mg/dL (7-21); CALCIUM 8.6 mg/dL (8.4-10.5); GFR AFRICAN-AMERICAN > 60; GFR NON-AFRICAN AMERICAN > 60
[2016-07-30 07:15] LABS: BASO # 0.03 K/mm3 (0.0-2.0); BASO % 0.8 % (0.0-3.0); EOS # 0.2 (0.0-0.7); EOS % 4.3 % (1.5-5.0); GRAN # 1.85 (1.4-6.5); GRAN % 49.9 % (50.0-68.0); HEMOGLOBIN 10.1 gm/dL (14.0-18.0); LYMPH # 1.3 (1.2-3.4); LYMPH % 35.3 % (22.0-35.0); MEAN CELL VOLUME 89.9 fL (80.0-105.0); MEAN CORPUSCULAR HEMOGLOBIN 29.9 pg (25.0-35.0); MEAN CORPUSCULAR HGB CONC 33.2 g/dl (31.0-37.0); MEAN PLATELET VOLUME 12.1 fl (7.0-11.0); MONO # 0.4 (0.1-0.6); MONO % 9.7 % (1.0-6.0); PLATELET COUNT 124 10^3/uL (120.0-450.0); RBC 3.38 10^6/uL (3.5-6.1); RED CELL DISTRIBUTION WIDTH 14.5 % (11.5-14.5); WHITE BLOOD COUNT 3.7 10^3/ul (4.5-11.0)
[2016-07-30 07:16] LABS: INR 1.12 (0.93-1.08); PARTIAL THROMBOPLASTIN TIME 30.7 Seconds (23.7-30.8); PROTHROMBIN TIME 12.1 Seconds (9.9-11.8)
[2016-07-30] MEDS ORDERED: Potassium Chloride 20 mEq ER Tab PO ONE ×3 (09:15→13:03)
[2016-07-30] MEDS: Enoxaparin 120 mg Syringe SC SCH ×2 (09:24→21:44)
[2016-07-30] MEDS: Bisacodyl 5mg EC Tab PO SCH (09:25)
[2016-07-30] MEDS: Zinc Oxide Topical 40% Oint (Desitin) TOP SCH ×2 (09:25→17:25)
[2016-07-30] MEDS: Multivitamin With Minerals Tab PO SCH (09:26)
--- NOTE | 2016-07-30 12:07 | CP.PCM.PN ---
<EdgardoKeri nielson - Last Filed: 07/30/16 12:02> Subjective - Date & Time of Evaluation Date of Evaluation: 07/30/16 Time of Evaluation: 12:02 - Subjective Subjective: HOSPITALIST PROGRESS NOTE Pt is seen and examined at bedside. No acute events overnight. patient is having regular bowel movements and is tolerating regular diet. Patient denies having any CP, SOB, cough, REINA. Objective - Vital Signs/Intake and Output Vital Signs (last 24 hours): Temp Pulse Resp BP Pulse Ox 97.7 F 59 L 18 139/87 97 07/30/16 07:36 07/30/16 07:36 07/30/16 07:36 07/30/16 07:36 07/30/16 07:36 Intake and Output: 07/30/16 07/30/16 06:59 18:59 Intake Total 540 Output Total 625 Balance -85 - Medications Medications: Current Medications Albuterol/Ipratropium (Duoneb 3 Mg/0.5 Mg (3 Ml) Ud) 3 ml IH [id number] [facility] Last Admin: 07/30/16 07:36 Dose: 3 ml Ascorbic Acid (Vitamin C 500 Mg Tab) 500 mg PO DAILY [facility] Last Admin: 07/30/16 09:26 Dose: 500 mg Bisacodyl (Dulcolax) 10 mg RC Q8H PRN PRN Reason: Constipation Bisacodyl (Dulcolax) 5 mg PO DAILY [facility] Last Admin: 07/30/16 09:25 Dose: 5 mg Enoxaparin Sodium (Lovenox) 120 mg SC Q12H [facility] PRN Reason: Protocol Last Admin: 07/30/16 09:24 Dose: 120 mg Meropenem 1g/NS 100mL IVPB (Meropenem 1g/Ns 100ml Ivpb) 1 gm in 100 mls @ 100 mls/hr IVPB Q8 [facility] PRN Reason: Protocol Stop: 08/05/16 22:01 Last Admin: 07/30/16 06:17 Dose: 100 mls/hr Ceftriaxone Sodium (Rocephin 2 Gm Ivpb) 2 gm in 100 mls @ 100 mls/hr IVPB Q12 [facility] PRN Reason: Protocol Lidocaine HCl (Lidocaine 2% Viscous) 15 ml PO Q2H PRN PRN Reason: Throat Pain Last Admin: 07/24/16 15:00 Dose: 15 ml Metoclopramide HCl (Reglan) 10 mg IVP Q6 [facility] Last Admin: 07/30/16 11:54 Dose: 10 mg Metoprolol Tartrate (Lopressor) 25 mg PO BID [facility] Last Admin: 07/30/16 09:25 Dose: 25 mg Multivitamins/Minerals (Therapeutic-M Tab) 1 tab PO DAILY [facility] Last Admin: 07/30/16 09:26 Dose: 1 tab Nicotine (Nicoderm Cq) 1 patch TD DAILY [facility] Last Admin: 07/30/16 09:24 Dose: 1 patch Pantoprazole Sodium (Protonix Inj) 40 mg IVP DAILY [facility] Last Admin: 07/30/16 09:24 Dose: 40 mg Petrolatum (Desitin Maximum Strength Topical 40% Oint) 0.1 gm TOP BID [facility] Last Admin: 07/30/16 09:25 Dose: 1 appl Tramadol HCl (Ultram) 50 mg PO TID PRN PRN Reason: Pain, severe (8-10) Last Admin: 07/29/16 18:27 Dose: 50 mg Warfarin Sodium (Coumadin) 10 mg PO 1800 [facility] PRN Reason: Protocol Zinc Sulfate (Zinc Sulfate 220 Mg Cap) 220 mg PO DAILY [facility] Last Admin: 07/30/16 09:25 Dose: 220 mg - Labs Labs: 07/30/16 06:30 07/30/16 06:30 PT 12.1 Seconds (9.9-11.8) H 07/30/16 06:30 INR 1.12 (0.93-1.08) H 07/30/16 06:30 APTT 30.7 Seconds (23.7-30.8) 07/30/16 06:30 - Constitutional Appears: Non-toxic, No Acute Distress - Head Exam Head Exam: ATRAUMATIC - ENT Exam ENT Exam: Mucous Membranes Moist - Respiratory Exam Respiratory Exam: Rhonchi. absent: Rales, Wheezes - Cardiovascular Exam Cardiovascular Exam: REGULAR RHYTHM, +S1, +S2. absent: Gallop, Rubs, Murmur - GI/Abdominal Exam GI & Abdominal Exam: Distended, Soft, Normal Bowel Sounds. absent: Firm, Guarding, Rigid, Tenderness - Extremities Exam Extremities Exam: absent: Calf Tenderness, Pedal Edema - Neurological Exam Neurological Exam: Alert, Awake, Oriented x3 - Psychiatric Exam Psychiatric exam: Normal Affect, Normal Mood - Skin Skin Exam: Dry, Intact, Normal Color, Warm Assessment and Plan - Assessment and Plan (Free Text) Assessment: 51 year old male with no significant past medical history is s/p T2-T4 lamenectomy on 07/07/16 US of LE showed R LE DVT s/p IVC filter 1. 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 -Tramadol prn for pain - Wound cultures grew strep pneumo -Pathology; shows fragments of bone with no metastatic disease. See report for full details 2. 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 3. Neurogenic bowel vs. ileus - Full diet but will monitor closely - Continue bowel regimen of Reglan 10 mg IV ACHS, Dulcolax PO and RC - C. diff 07/24 negative 5. Neurogenic bladder - Haque in place - Urology dr Iqbal is consulted - Will likely require suprapubic cath at some time in future 6. R LE DVT s/p IVC filter placed -Patient is on Lovenox. Started bridging yesterday with coumadin 10 mg. Will continue coumadin 10 mg today. INR 1.12 today 7. Atypical CP - Resolved - CXR 07/26 - minor atalectasis R >L - Cardio is consulted for recs - Echo showed EF of 63.5%, normal LV, trace AR, MR and TR 8. Iron deficiency anemia - Will cont to monitor - H&H is stable - Iron 35 (low), TIBC 325 (normal), Ferritin 11 (low), Vit B12 327 (Normal), folate 7.8 (normal) 9. multiple stage 2 pressure ulcer on sacrum and buttock - air mattress and continue to reposition q2H - multivit, zinv, vitamin C PO ordered - Wound care is consulted 10. LOLA - Resolved 11. Leukopenia - improving - 2/2 spinal abscess vs. pressure ulcers - Repeat procal is negative - Repeat blood and urine cultures negative - Per ID, Dr. Vazquez, stopped meropenem ad vanco and restarted rocephin 2 gm q12 IVPB Prophylaxis - Protonix - Lovenox and coumadin Case and plan was seen, reviewed, and discussed in detail with Dr Piedra <Tobin Piedra - Last Filed: 07/30/16 14:24> Objective - Vital Signs/Intake and Output Vital Signs (last 24 hours): Temp Pulse Resp BP Pulse Ox 97.7 F 59 L 18 139/87 97 07/30/16 07:36 07/30/16 07:36 07/30/16 07:36 07/30/16 07:36 07/30/16 07:36 Intake and Output: 07/30/16 07/30/16 06:59 18:59 Intake Total 540 Output Total 625 Balance -85 - Medications Medications: Current Medications Albuterol/Ipratropium (Duoneb 3 Mg/0.5 Mg (3 Ml) Ud) 3 ml IH [id number] [facility] Last Admin: 07/30/16 13:47 Dose: Not Given Ascorbic Acid (Vitamin C 500 Mg Tab) 500 mg PO DAILY [facility] Last Admin: 07/30/16 09:26 Dose: 500 mg Bisacodyl (Dulcolax) 10 mg RC Q8H PRN PRN Reason: Constipation Bisacodyl (Dulcolax) 5 mg PO DAILY [facility] Last Admin: 07/30/16 09:25 Dose: 5 mg Enoxaparin Sodium (Lovenox) 120 mg SC Q12H [facility] PRN Reason: Protocol Last Admin: 07/30/16 09:24 Dose: 120 mg Ceftriaxone Sodium (Rocephin 2 Gm Ivpb) 2 gm in 100 mls @ 100 mls/hr IVPB Q12 [facility] PRN Reason: Protocol Lidocaine HCl (Lidocaine 2% Viscous) 15 ml PO Q2H PRN PRN Reason: Throat Pain Last Admin: 07/24/16 15:00 Dose: 15 ml Metoclopramide HCl (Reglan) 10 mg IVP Q6 [facility] Last Admin: 07/30/16 11:54 Dose: 10 mg Metoprolol Tartrate (Lopressor) 25 mg PO BID [facility] Last Admin: 07/30/16 09:25 Dose: 25 mg Multivitamins/Minerals (Therapeutic-M Tab) 1 tab PO DAILY [facility] Last Admin: 07/30/16 09:26 Dose: 1 tab Nicotine (Nicoderm Cq) 1 patch TD DAILY [facility] Last Admin: 07/30/16 09:24 Dose: 1 patch Pantoprazole Sodium (Protonix Inj) 40 mg IVP DAILY [facility] Last Admin: 07/30/16 09:24 Dose: 40 mg Petrolatum (Desitin Maximum Strength Topical 40% Oint) 0.1 gm TOP BID [facility] Last Admin: 07/30/16 09:25 Dose: 1 appl Tramadol HCl (Ultram) 50 mg PO TID PRN PRN Reason: Pain, severe (8-10) Last Admin: 07/29/16 18:27 Dose: 50 mg Warfarin Sodium (Coumadin) 10 mg PO 1800 [facility] PRN Reason: Protocol Zinc Sulfate (Zinc Sulfate 220 Mg Cap) 220 mg PO DAILY [facility] Last Admin: 07/30/16 09:25 Dose: 220 mg - Labs Labs: 07/30/16 06:30 07/30/16 06:30 PT 12.1 Seconds (9.9-11.8) H 07/30/16 06:30 INR 1.12 (0.93-1.08) H 07/30/16 06:30 APTT 30.7 Seconds (23.7-30.8) 07/30/16 06:30 Attending/Attestation - Attestation I have personally seen and examined this patient.: Yes I have fully participated in the care of the patient.: Yes I have reviewed all pertinent clinical information, including history, physical exam and plan: Yes Notes (Text): 07/30/16 14:23 attending note; I have seen and examined patient at bedside With resident. This is a 51 year old male with history of substance abuse (snorts cocaine), tobacco, alcohol use who got admitted for evaluation of back pain and found to have epidural abscess T1-T5, osteomyelitis, urinary retention and acute RLE DVT. He underwent emergent laminectomy and epidural abscess was drained. Wound culture is growing strep pneumonia. He has no noticeable improvement in neurological function however he has been getting involuntary spasms of his bilateral lower extremities. GOt out of bed and stood for few seconds with PT yesterday. currently tolerating well. He is on lovenox for acute RLE DVT and is s/p IVC filter. Case discussed with Dr. Wong in detail. started on Coumadin. Monitor INR closely. Mild thrombocytopenia; improving. He has haque catheter for neurogenic bladder. Advised frequent turning to avoid pressure sores/air mattress /continue wound care. Currently afebrile and nontoxic. Blood culture is negative so far .urine culture is negative .follow up closely. Chest x-ray showed atelectasis. Currently patient is on Meropenem. Got 1 dose of IV vancomycin. Case discussed with correctional case manager for discharge planning.
--- NOTE | 2016-07-30 13:08 | PN ---
DATE: 07/30/2016 LOCATION: Room 571, bed 2. REASON FOR CONSULTATION AND FOLLOWUP: Chest pain. HISTORY OF PRESENT ILLNESS: The patient was admitted with chest pain, found to have radiating pain f rom the spinal abscess which has been drained. After draining of the abscess, the pain was relieved. The patient also developed respiratory distress later on and also thrombophlebitis and off and on e pisodes of small-bowel obstruction. Now patient is on the floor. He is paraplegic and incontinent o f urine and bladder. The patient lying flat in bed without chest pain, shortness of breath, or palpi tation. Status post spinal abscess drainage. PHYSICAL EXAMINATION: VITAL SIGNS: Blood pressure 139/87, respirations 18, pulse 59, temperature 97.7. HEAD: Normocephalic. EYES: Pupils normal. Conjunctivae are slightly pale. NECK: JVP low. Carotids equal. THORAX: AP diameter normal. LUNGS: Clear. CARDIOVASCULAR: S1, S2. ABDOMEN: Protuberant, no organomegaly. EXTREMITIES: No clubbing, no cyanosis. LABORATORY DATA: WBC 3.7, hemoglobin 10.1, hematocrit 30.4, platelet 124. Sodium 137, potassium 3.4 , BUN 9, creatinine 0.6, AST 43, ALT 77, total protein 6.5, albumin 3.1. DIAGNOSES: Paraplegia, history of spinal abscess, status post drainage of the abscess, chest pain, r eferred pain from spinal abscess, history of respiratory failure, successful extubation, small-bowel obstruction which also improved, deep venous thrombosis. PLAN: The patient is on warfarin 10 mg p.o. daily, DuoNeb hand nebulizer therapy, metoprolol 25 b.i. d., Lovenox 120 mg subQ q. 12 hours, Rocephin 2 grams IV q. 12 hours. We will give potassium 40 mEq p.o. today and will repeat SMA-7 in the morning. Prothrombin time today is 12.1 with INR 1.12. We w ill follow with you. Jarrod Sumner MD cc: [phone] TT: 07/30/2016 13:07:32 Confirmation # [id number] Dictation # [id number]
--- NOTE | 2016-07-30 19:24 | CP.PCM.PN ---
Subjective - Date & Time of Evaluation Date of Evaluation: 07/30/16 Time of Evaluation: 10:30 - Subjective Subjective: Comfortable in bed, afebrile, no nausea. Still not able to move lower extremities. Objective - Vital Signs/Intake and Output Vital Signs (last 24 hours): Temp Pulse Resp BP Pulse Ox 98.7 F 56 L 20 125/75 100 07/30/16 16:00 07/30/16 16:00 07/30/16 16:00 07/30/16 16:00 07/30/16 16:00 Intake and Output: 07/30/16 07/31/16 18:59 06:59 Intake Total 760 Output Total 1300 Balance -540 - Medications Medications: Current Medications Albuterol/Ipratropium (Duoneb 3 Mg/0.5 Mg (3 Ml) Ud) 3 ml IH [id number] [facility] Last Admin: 07/30/16 13:47 Dose: Not Given Ascorbic Acid (Vitamin C 500 Mg Tab) 500 mg PO DAILY [facility] Last Admin: 07/30/16 09:26 Dose: 500 mg Bisacodyl (Dulcolax) 10 mg RC Q8H PRN PRN Reason: Constipation Bisacodyl (Dulcolax) 5 mg PO DAILY [facility] Last Admin: 07/30/16 09:25 Dose: 5 mg Enoxaparin Sodium (Lovenox) 120 mg SC Q12H [facility] PRN Reason: Protocol Last Admin: 07/30/16 09:24 Dose: 120 mg Ceftriaxone Sodium (Rocephin 2 Gm Ivpb) 2 gm in 100 mls @ 100 mls/hr IVPB Q12 [facility] PRN Reason: Protocol Lidocaine HCl (Lidocaine 2% Viscous) 15 ml PO Q2H PRN PRN Reason: Throat Pain Last Admin: 07/24/16 15:00 Dose: 15 ml Metoclopramide HCl (Reglan) 10 mg IVP Q6 [facility] Last Admin: 07/30/16 17:25 Dose: 10 mg Metoprolol Tartrate (Lopressor) 25 mg PO BID [facility] Last Admin: 07/30/16 17:25 Dose: 25 mg Multivitamins/Minerals (Therapeutic-M Tab) 1 tab PO DAILY [facility] Last Admin: 07/30/16 09:26 Dose: 1 tab Nicotine (Nicoderm Cq) 1 patch TD DAILY [facility] Last Admin: 07/30/16 09:24 Dose: 1 patch Pantoprazole Sodium (Protonix Inj) 40 mg IVP DAILY [facility] Last Admin: 07/30/16 09:24 Dose: 40 mg Petrolatum (Desitin Maximum Strength Topical 40% Oint) 0.1 gm TOP BID [facility] Last Admin: 07/30/16 17:25 Dose: 1 appl Tramadol HCl (Ultram) 50 mg PO TID PRN PRN Reason: Pain, severe (8-10) Last Admin: 07/29/16 18:27 Dose: 50 mg Warfarin Sodium (Coumadin) 10 mg PO 1800 [facility] PRN Reason: Protocol Last Admin: 07/30/16 17:25 Dose: 10 mg Zinc Sulfate (Zinc Sulfate 220 Mg Cap) 220 mg PO DAILY [facility] Last Admin: 07/30/16 09:25 Dose: 220 mg - Labs Labs: 07/30/16 06:30 07/30/16 06:30 PT 12.1 Seconds (9.9-11.8) H 07/30/16 06:30 INR 1.12 (0.93-1.08) H 07/30/16 06:30 APTT 30.7 Seconds (23.7-30.8) 07/30/16 06:30 - Constitutional Appears: Non-toxic, No Acute Distress - Head Exam Head Exam: NORMAL INSPECTION - ENT Exam ENT Exam: Mucous Membranes Moist - Neck Exam Neck Exam: absent: Lymphadenopathy, Meningismus - Respiratory Exam Respiratory Exam: Decreased Breath Sounds - Cardiovascular Exam Cardiovascular Exam: +S1, +S2 - GI/Abdominal Exam GI & Abdominal Exam: Soft. 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 with associated cord compression and lower extremity paralysis S/P neurosurgery for abscess drainage and laminectomy POD #23 Partial small bowel obstruction, clinically improved significant smoking history alcohol abuse obesity with BMI 40 Plan Repeat septic work up is negative; patient has not had fever since 07/27/2016; will switch back to Rocephin to complete 4-6 weeks of therapy Will continue to follow clinically
[2016-07-30] MEDS ORDERED: cefTRIAXone 2 GM IN NS 2 GM/100 ML BAG IVPB SCH (22:00)
[2016-07-30] MEDS ORDERED: DiphenhydrAMINE 50 mg/ml Inj IVP STA (22:29)
[2016-07-31] MEDS: Albuterol-Ipratrop 3 mg / 0.5 (3 ml) UD IH SCH ×4 (01:30→19:31)
[2016-07-31 08:05] LABS: BASO # 0.02 K/mm3 (0.0-2.0); BASO % 0.5 % (0.0-3.0); EOS # 0.2 (0.0-0.7); EOS % 5.9 % (1.5-5.0); GRAN # 2.72 (1.4-6.5); GRAN % 66.4 % (50.0-68.0); HEMOGLOBIN 10.3 gm/dL (14.0-18.0); LYMPH # 0.8 (1.2-3.4); LYMPH % 19.1 % (22.0-35.0); MEAN CELL VOLUME 89.9 fL (80.0-105.0); MEAN CORPUSCULAR HEMOGLOBIN 29.7 pg (25.0-35.0); MEAN PLATELET VOLUME 11.4 fl (7.0-11.0); MONO # 0.3 (0.1-0.6); MONO % 8.1 % (1.0-6.0); PLATELET COUNT 133 10^3/uL (120.0-450.0); RBC 3.47 10^6/uL (3.5-6.1); RED CELL DISTRIBUTION WIDTH 14.3 % (11.5-14.5); WHITE BLOOD COUNT 4.1 10^3/ul (4.5-11.0)
[2016-07-31 08:13] LABS: INR 1.65 (0.93-1.08); PROTHROMBIN TIME 17.8 Seconds (9.9-11.8)
[2016-07-31 08:27] LABS: ALBUMIN 3.4 g/dL (3.0-4.8); ALT/SGPT 86 U/L (7-56); AST/SGOT 45 U/L (15-59); BLOOD UREA NITROGEN 10 mg/dL (7-21); CALCIUM 8.8 mg/dL (8.4-10.5); GFR AFRICAN-AMERICAN > 60; GFR NON-AFRICAN AMERICAN > 60
[2016-07-31] MEDS ORDERED: Potassium Chloride 20 mEq ER Tab PO ONE (09:31)
[2016-07-31] MEDS: Multivitamin With Minerals Tab PO SCH (10:35)
[2016-07-31] MEDS: Enoxaparin 120 mg Syringe SC SCH ×2 (10:35→22:34)
[2016-07-31] MEDS: Bisacodyl 5mg EC Tab PO SCH (10:35)
[2016-07-31] MEDS: Zinc Oxide Topical 40% Oint (Desitin) TOP SCH ×2 (11:58→17:33)
--- NOTE | 2016-07-31 12:53 | CP.PCM.PN ---
<Keri Guzman - Last Filed: 07/31/16 12:53> Subjective - Date & Time of Evaluation Date of Evaluation: 07/31/16 Time of Evaluation: 12:54 - Subjective Subjective: HOSPITALIST PROGRESS NOTE Pt is seen and examined at bedside. Patient states that her developed a burning sensation throughout his body last night when he was getting rocephin infusion. Patient denies having any pruritus, rash, N/V. Patient states that these symptoms went away half hour after his symptoms started. Patient is tolerating diet and is having regular bowel movements. Objective - Vital Signs/Intake and Output Vital Signs (last 24 hours): Temp Pulse Resp BP Pulse Ox 98 F 67 20 124/70 98 07/31/16 08:30 07/31/16 10:34 07/31/16 08:30 07/31/16 10:34 07/31/16 08:30 Intake and Output: 07/31/16 07/31/16 06:59 18:59 Intake Total 840 Output Total 875 Balance -35 - Medications Medications: Current Medications Albuterol/Ipratropium (Duoneb 3 Mg/0.5 Mg (3 Ml) Ud) 3 ml IH [id number] [facility] Last Admin: 07/31/16 07:16 Dose: 3 ml Ascorbic Acid (Vitamin C 500 Mg Tab) 500 mg PO DAILY [facility] Last Admin: 07/31/16 10:35 Dose: 500 mg Bisacodyl (Dulcolax) 10 mg RC Q8H PRN PRN Reason: Constipation Bisacodyl (Dulcolax) 5 mg PO DAILY [facility] Last Admin: 07/31/16 10:35 Dose: 5 mg Enoxaparin Sodium (Lovenox) 120 mg SC Q12H [facility] PRN Reason: Protocol Last Admin: 07/31/16 10:35 Dose: 120 mg Meropenem 1g/NS 100mL IVPB (Meropenem 1g/Ns 100ml Ivpb) 1 gm in 100 mls @ 100 mls/hr IVPB Q8 [facility] PRN Reason: Protocol Stop: 07/31/16 22:59 Lidocaine HCl (Lidocaine 2% Viscous) 15 ml PO Q2H PRN PRN Reason: Throat Pain Last Admin: 07/24/16 15:00 Dose: 15 ml Metoclopramide HCl (Reglan) 10 mg IVP Q6 [facility] Last Admin: 07/31/16 11:33 Dose: 10 mg Metoprolol Tartrate (Lopressor) 25 mg PO BID [facility] Last Admin: 07/31/16 10:34 Dose: 25 mg Multivitamins/Minerals (Therapeutic-M Tab) 1 tab PO DAILY [facility] Last Admin: 07/31/16 10:35 Dose: 1 tab Nicotine (Nicoderm Cq) 1 patch TD DAILY [facility] Last Admin: 07/31/16 10:52 Dose: Not Given Pantoprazole Sodium (Protonix Inj) 40 mg IVP DAILY [facility] Last Admin: 07/31/16 10:34 Dose: 40 mg Petrolatum (Desitin Maximum Strength Topical 40% Oint) 0.1 gm TOP BID [facility] Last Admin: 07/31/16 11:58 Dose: 1 appl Tramadol HCl (Ultram) 50 mg PO TID PRN PRN Reason: Pain, severe (8-10) Last Admin: 07/29/16 18:27 Dose: 50 mg Warfarin Sodium (Coumadin) 10 mg PO 1800 [facility] PRN Reason: Protocol Last Admin: 07/30/16 17:25 Dose: 10 mg Zinc Sulfate (Zinc Sulfate 220 Mg Cap) 220 mg PO DAILY [facility] Last Admin: 07/31/16 10:53 Dose: 220 mg - Labs Labs: 07/31/16 07:30 07/31/16 07:30 PT 17.8 Seconds (9.9-11.8) H 07/31/16 07:30 INR 1.65 (0.93-1.08) H 07/31/16 07:30 APTT 30.7 Seconds (23.7-30.8) 07/30/16 06:30 - Constitutional Appears: Non-toxic, No Acute Distress - Head Exam Head Exam: ATRAUMATIC - Eye Exam Eye Exam: EOMI - ENT Exam ENT Exam: Mucous Membranes Moist - Respiratory Exam Respiratory Exam: Clear to Ausculation Bilateral. absent: Rales, Rhonchi, Wheezes - Cardiovascular Exam Cardiovascular Exam: REGULAR RHYTHM, +S1, +S2. absent: Gallop, Rubs, Murmur - GI/Abdominal Exam GI & Abdominal Exam: Soft. absent: Distended, Firm, Guarding, Rigid, Tenderness - Extremities Exam Extremities Exam: absent: Pedal Edema, Tenderness - Neurological Exam Neurological Exam: Alert, Awake, Oriented x3 - Psychiatric Exam Psychiatric exam: Normal Affect, Normal Mood - Skin Skin Exam: Dry, Intact, Normal Color, Warm Assessment and Plan - Assessment and Plan (Free Text) Assessment: 51 year old male with no significant past medical history is s/p T2-T4 lamenectomy on 07/07/16 US of LE showed R LE DVT s/p IVC filter 1. 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 See report for full details 2. 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 3. Neurogenic bowel vs. ileus - Full diet but will monitor closely - Continue bowel regimen of Reglan 10 mg IV ACHS, Dulcolax PO and RC - C. diff 07/24 negative 5. Neurogenic bladder - Haque in place - Urology dr Iqbal is consulted - Will likely require suprapubic cath at some time in future 6. R LE DVT s/p IVC filter placed -Patient is on Lovenox. Started bridging yesterday with coumadin 10 mg. Will continue coumadin 10 mg today. INR 1.65 today 7. Atypical CP - Resolved - CXR 07/26 - minor atalectasis R >L - Cardio is consulted for recs - Echo showed EF of 63.5%, normal LV, trace AR, MR and TR 8. Iron deficiency anemia - Will cont to monitor - H&H is stable - Iron 35 (low), TIBC 325 (normal), Ferritin 11 (low), Vit B12 327 (Normal), folate 7.8 (normal) 9. multiple stage 2 pressure ulcer on sacrum and buttock - air mattress and continue to reposition q2H - multivit, zinv, vitamin C PO ordered - Wound care is consulted 10. LOLA - Resolved 11. Leukopenia - improved - 2/2 spinal abscess vs. pressure ulcers - Repeat procal is negative - Repeat blood and urine cultures negative - Rocephin Prophylaxis - Protonix - Lovenox and coumadin Case and plan was seen, reviewed, and discussed in detail with Dr Piedra <Tobin Piedra - Last Filed: 07/31/16 17:04> Objective - Vital Signs/Intake and Output Vital Signs (last 24 hours): Temp Pulse Resp BP Pulse Ox 98.2 F 64 20 114/76 99 07/31/16 16:00 07/31/16 16:00 07/31/16 16:00 07/31/16 16:00 07/31/16 16:00 Intake and Output: 07/31/16 07/31/16 06:59 18:59 Intake Total 840 1520 Output Total 875 Balance -35 1520 - Medications Medications: Current Medications Albuterol/Ipratropium (Duoneb 3 Mg/0.5 Mg (3 Ml) Ud) 3 ml IH [id number] [facility] Last Admin: 07/31/16 13:54 Dose: 3 ml Ascorbic Acid (Vitamin C 500 Mg Tab) 500 mg PO DAILY [facility] Last Admin: 07/31/16 10:35 Dose: 500 mg Bisacodyl (Dulcolax) 10 mg RC Q8H PRN PRN Reason: Constipation Bisacodyl (Dulcolax) 5 mg PO DAILY [facility] Last Admin: 07/31/16 10:35 Dose: 5 mg Enoxaparin Sodium (Lovenox) 120 mg SC Q12H [facility] PRN Reason: Protocol Last Admin: 07/31/16 10:35 Dose: 120 mg Meropenem 1g/NS 100mL IVPB (Meropenem 1g/Ns 100ml Ivpb) 1 gm in 100 mls @ 100 mls/hr IVPB Q8 [facility] PRN Reason: Protocol Stop: 08/28/16 22:01 Lidocaine HCl (Lidocaine 2% Viscous) 15 ml PO Q2H PRN PRN Reason: Throat Pain Last Admin: 07/24/16 15:00 Dose: 15 ml Metoclopramide HCl (Reglan) 10 mg IVP Q6 [facility] Last Admin: 07/31/16 11:33 Dose: 10 mg Metoprolol Tartrate (Lopressor) 25 mg PO BID [facility] Last Admin: 07/31/16 10:34 Dose: 25 mg Multivitamins/Minerals (Therapeutic-M Tab) 1 tab PO DAILY [facility] Last Admin: 07/31/16 10:35 Dose: 1 tab Nicotine (Nicoderm Cq) 1 patch TD DAILY [facility] Last Admin: 07/31/16 10:52 Dose: Not Given Pantoprazole Sodium (Protonix Inj) 40 mg IVP DAILY [facility] Last Admin: 07/31/16 10:34 Dose: 40 mg Petrolatum (Desitin Maximum Strength Topical 40% Oint) 0.1 gm TOP BID [facility] Last Admin: 07/31/16 11:58 Dose: 1 appl Tramadol HCl (Ultram) 50 mg PO TID PRN PRN Reason: Pain, severe (8-10) Last Admin: 07/29/16 18:27 Dose: 50 mg Warfarin Sodium (Coumadin) 10 mg PO 1800 [facility] PRN Reason: Protocol Last Admin: 07/30/16 17:25 Dose: 10 mg Zinc Sulfate (Zinc Sulfate 220 Mg Cap) 220 mg PO DAILY [facility] Last Admin: 07/31/16 10:53 Dose: 220 mg - Labs Labs: 07/31/16 07:30 07/31/16 07:30 PT 17.8 Seconds (9.9-11.8) H 07/31/16 07:30 INR 1.65 (0.93-1.08) H 07/31/16 07:30 APTT 30.7 Seconds (23.7-30.8) 07/30/16 06:30 Attending/Attestation - Attestation I have personally seen and examined this patient.: Yes I have fully participated in the care of the patient.: Yes I have reviewed all pertinent clinical information, including history, physical exam and plan: Yes Notes (Text): 07/31/16 16:59 attending note; I have seen and examined patient at bedside With resident. This is a 51 year old male with history of substance abuse (snorts cocaine), tobacco, alcohol use who got admitted for evaluation of back pain and found to have epidural abscess T1-T5, osteomyelitis, urinary retention and acute RLE DVT. He underwent emergent laminectomy and epidural abscess was drained. Wound culture is growing strep pneumonia. He has no noticeable improvement in neurological function however he has been getting involuntary spasms of his bilateral lower extremities. currently tolerating well. He is on lovenox for acute RLE DVT and is s/p IVC filter. continue Coumadin. Monitor INR closely. He has haque catheter for neurogenic bladder. Advised frequent turning to avoid pressure sores/air mattress /continue wound care. Currently afebrile and nontoxic. Blood culture is negative so far .urine culture is negative .follow up closely. Chest x-ray showed atelectasis. Currently patient is on Meropenem. switched back from rocephin due to rash by ID. Case discussed with family preservation caseworker for discharge planning.
--- NOTE | 2016-07-31 13:06 | PN ---
DATE: 07/31/2016 The patient in room 571, bed 2. REASON FOR CONSULTATION AND FOLLOWUP: Chest pain. HISTORY OF PRESENT ILLNESS: The patient was admitted with chest pain, found to have radiating pain f rom the spinal abscess, which has been drained. After draining of the abscess, pain was relieved. T he patient also developed respiratory distress later on and thrombophlebitis and off and on small bow el obstruction. The patient now lying flat in bed without chest pain, shortness of breath, palpitati on. PHYSICAL EXAMINATION: VITAL SIGNS: Blood pressure 124/70, respirations 20, pulse 67, temperature 98. HEAD: Normocephalic. EYES: Pupils normal. Conjunctivae slightly pale. NECK: JVP low. Carotid equal. THORAX: AP diameter normal. LUNGS: Clear. CARDIOVASCULAR: S1, S2. ABDOMEN: Protuberant, no organomegaly. EXTREMITIES: No clubbing, no cyanosis. LABORATORIES: WBC 4.1, hemoglobin 10.3, hematocrit 31.2, platelets 133. Sodium 137, potassium 3.4, BUN 10, creatinine 0.5, AST 45, ALT 86. DIAGNOSES: Paraplegia, history of spinal abscess, status post drainage of the spinal abscess, chest pain, left foot pain from spinal abscess, history of respiratory failure, successful extubation, smal l bowel obstruction which also has improved, thrombophlebitis, hypokalemia. PLAN: The patient's prothrombin time 17.8, INR 1.65. We will continue warfarin 10 mg p.o. daily and follow PT/INR. The patient already got potassium therapy extra today, metoprolol 25 b.i.d., Lovenox 120 mg subQ q. 12 hours, Protonix 40 IV daily, Reglan 10 mg IV q. 6 hours. We will repeat labs for a.m. and already requested. We will continue to follow with you. Jarrod Sumner MD cc: [id number] TT: 07/31/2016 13:05:49 Confirmation # [id number] Dictation # [id number] en
[2016-07-31] MEDS ORDERED: Meropenem 1g/NS 100mL IVPB 1 GM/100 ML PIGGYBACK IVPB SCH (14:00)
--- NOTE | 2016-07-31 15:58 | PN ---
DATE: 07/31/2016 The patient is seen earlier today, in no acute distress. He has a new rash. PHYSICAL EXAMINATION: VITAL SIGNS: Temperature is 98, blood pressure is 120/70, respiratory rate 16. HEENT: Unremarkable. NECK: Supple. LUNGS: Have decreased breath sounds. HEART: Normal S1, S2. ABDOMEN: Soft, nontender. LABORATORY EXAMINATION: Reveals the patient to have a white count of 4.1 and hemoglobin of 10, plate lets of 133. BUN of 10, creatinine of 0.5. Urinalysis is noted. Serology is negative. Microbiolog y is noted. ASSESSMENT AND PLAN: A 51-year-old with an epidural abscess, secondary to Streptococcus pneumoniae a ssociated cord compression with lower extremity paralysis, status post neurosurgery for abscess drain age and laminectomy, post procedure 24 with a partial small bowel obstruction. Now, patient has a ne w rash on ceftriaxone. Will switch to meropenem 1 gram q. 8 hours and follow CBC, SMA-18, sed rate, C-reactive protein once weekly with imaging of the spine. Will follow with you. Colt Coronel MD cc: [id number] TT: 07/31/2016 15:48:33 Confirmation # [id number] Dictation # [id number] en
[2016-07-31] MEDS: Meropenem 1g/NS 100mL IVPB 1 GM/100 ML PIGGYBACK IVPB SCH (22:55)
[2016-08-01] MEDS: Albuterol-Ipratrop 3 mg / 0.5 (3 ml) UD IH SCH ×4 (01:02→20:59)
[2016-08-01] MEDS: Meropenem 1g/NS 100mL IVPB 1 GM/100 ML PIGGYBACK IVPB SCH ×3 (06:00→22:34)
[2016-08-01 07:28] LABS: BASO # 0.02 K/mm3 (0.0-2.0); BASO % 0.5 % (0.0-3.0); EOS # 0.2 (0.0-0.7); EOS % 4.7 % (1.5-5.0); GRAN # 2.34 (1.4-6.5); GRAN % 54.5 % (50.0-68.0); HEMOGLOBIN 10.6 gm/dL (14.0-18.0); LYMPH # 1.2 (1.2-3.4); LYMPH % 28.4 % (22.0-35.0); MEAN CELL VOLUME 90.7 fL (80.0-105.0); MEAN CORPUSCULAR HEMOGLOBIN 29.9 pg (25.0-35.0); MEAN PLATELET VOLUME 11.6 fl (7.0-11.0); MONO # 0.5 (0.1-0.6); MONO % 11.9 % (1.0-6.0); PLATELET COUNT 144 10^3/uL (120.0-450.0); RBC 3.54 10^6/uL (3.5-6.1); RED CELL DISTRIBUTION WIDTH 14.3 % (11.5-14.5); WHITE BLOOD COUNT 4.3 10^3/ul (4.5-11.0)
[2016-08-01 07:36] LABS: INR 2.23 (0.93-1.08); PROTHROMBIN TIME 24.1 Seconds (9.9-11.8)
--- NOTE | 2016-08-01 09:09 | CP.PCM.PN ---
<Keri Guzman - Last Filed: 08/01/16 09:30> Subjective - Date & Time of Evaluation Date of Evaluation: 08/01/16 Time of Evaluation: 09:07 - Subjective Subjective: HOSPITALIST PROGRESS NOTE Pt is seen and examined at bedside. No acute events overnight. Patient is tolerating diet and having regular BMs. Patient's rash has resolved. Denies having any CP, SOB, REINA, N/V. Objective - Vital Signs/Intake and Output Vital Signs (last 24 hours): Temp Pulse Resp BP Pulse Ox 97.8 F 68 20 117/75 97 08/01/16 08:00 08/01/16 08:00 08/01/16 08:00 08/01/16 08:00 08/01/16 08:00 Intake and Output: 08/01/16 08/01/16 06:59 18:59 Intake Total 740 Output Total 1350 Balance -610 - Medications Medications: Current Medications Albuterol/Ipratropium (Duoneb 3 Mg/0.5 Mg (3 Ml) Ud) 3 ml IH [id number] [facility] Last Admin: 08/01/16 07:16 Dose: 3 ml Ascorbic Acid (Vitamin C 500 Mg Tab) 500 mg PO DAILY [facility] Last Admin: 07/31/16 10:35 Dose: 500 mg Bisacodyl (Dulcolax) 10 mg RC Q8H PRN PRN Reason: Constipation Bisacodyl (Dulcolax) 5 mg PO DAILY [facility] Last Admin: 07/31/16 10:35 Dose: 5 mg Enoxaparin Sodium (Lovenox) 120 mg SC Q12H DONAL PRN Reason: Protocol Last Admin: 07/31/16 22:34 Dose: 120 mg Meropenem 1g/NS 100mL IVPB (Meropenem 1g/Ns 100ml Ivpb) 1 gm in 100 mls @ 100 mls/hr IVPB Q8 DONAL PRN Reason: Protocol Stop: 08/28/16 22:01 Last Admin: 08/01/16 06:00 Dose: 100 mls/hr Lidocaine HCl (Lidocaine 2% Viscous) 15 ml PO Q2H PRN PRN Reason: Throat Pain Last Admin: 07/24/16 15:00 Dose: 15 ml Metoclopramide HCl (Reglan) 10 mg IVP Q6 [facility] Last Admin: 08/01/16 06:00 Dose: 10 mg Metoprolol Tartrate (Lopressor) 25 mg PO BID [facility] Last Admin: 07/31/16 17:29 Dose: 25 mg Multivitamins/Minerals (Therapeutic-M Tab) 1 tab PO DAILY [facility] Last Admin: 07/31/16 10:35 Dose: 1 tab Nicotine (Nicoderm Cq) 1 patch TD DAILY [facility] Last Admin: 07/31/16 10:52 Dose: Not Given Pantoprazole Sodium (Protonix Inj) 40 mg IVP DAILY [facility] Last Admin: 07/31/16 10:34 Dose: 40 mg Petrolatum (Desitin Maximum Strength Topical 40% Oint) 0.1 gm TOP BID [facility] Last Admin: 07/31/16 17:33 Dose: 1 appl Warfarin Sodium (Coumadin) 10 mg PO 1800 [facility] PRN Reason: Protocol Last Admin: 07/31/16 17:28 Dose: 10 mg Zinc Sulfate (Zinc Sulfate 220 Mg Cap) 220 mg PO DAILY [facility] Last Admin: 07/31/16 10:53 Dose: 220 mg - Labs Labs: 08/01/16 07:00 07/31/16 07:30 PT 24.1 Seconds (9.9-11.8) H 08/01/16 07:00 INR 2.23 (0.93-1.08) H 08/01/16 07:00 APTT 30.7 Seconds (23.7-30.8) 07/30/16 06:30 - Constitutional Appears: Non-toxic, No Acute Distress - Head Exam Head Exam: ATRAUMATIC - Eye Exam Eye Exam: EOMI - ENT Exam ENT Exam: Mucous Membranes Moist - Respiratory Exam Respiratory Exam: Rhonchi. absent: Accessory Muscle Use, Rales, Wheezes, Respiratory Distress - Cardiovascular Exam Cardiovascular Exam: REGULAR RHYTHM, +S1, +S2. absent: Gallop, Rubs, Murmur - GI/Abdominal Exam GI & Abdominal Exam: Soft. absent: Distended, Firm, Guarding, Rigid, Tenderness - Neurological Exam Neurological Exam: Alert, Awake, Oriented x3 - Skin Skin Exam: Dry, Intact, Normal Color, Warm Assessment and Plan - Assessment and Plan (Free Text) Assessment: 51 year old male with no significant past medical history is s/p T2-T4 lamenectomy on 07/07/16 US of LE showed R LE DVT s/p IVC filter 1. Epidural space abscess s/p lamenectomy T2-T4 on 07/07/16 - Pt has involuntary spasm of legs - Patient developed rash on rocephin. Was switched to meropenem yesterday per ID - Tramadol prn for pain - Wound cultures grew strep pneumo -Pathology; shows fragments of bone with no metastatic disease. See report for full details 2. 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 3. Neurogenic bowel vs. ileus - Full diet but will monitor closely - Continue bowel regimen of Reglan 10 mg IV ACHS, Dulcolax PO and RC PRN - C. diff 07/24 negative 5. Neurogenic bladder - Haque in place - Urology dr Iqbal is consulted - Will likely require suprapubic cath at some time in future 6. R LE DVT s/p IVC filter placed -Coumadin 7.5 mg po qd. INR today is 2.23. 7. Atypical CP - Resolved - CXR 07/26 - minor atalectasis R >L - Cardio is consulted for recs - Echo showed EF of 63.5%, normal LV, trace AR, MR and TR 8. Iron deficiency anemia - Will cont to monitor - H&H is stable - Iron 35 (low), TIBC 325 (normal), Ferritin 11 (low), Vit B12 327 (Normal), folate 7.8 (normal) 9. multiple stage 2 pressure ulcer on sacrum and buttock - air mattress and continue to reposition q2H - multivit, zinv, vitamin C PO ordered - Wound care is consulted 10. LOLA - Resolved 11. Leukopenia - improved - 2/2 spinal abscess vs. pressure ulcers - Repeat procal is negative - Repeat blood and urine cultures negative - Meropenem Prophylaxis - Protonix - coumadin Case and plan was seen, reviewed, and discussed in detail with Dr Piedra <Tobin Piedra - Last Filed: 08/01/16 16:04> Objective - Vital Signs/Intake and Output Vital Signs (last 24 hours): Temp Pulse Resp BP Pulse Ox 97.8 F 68 20 117/75 97 08/01/16 08:00 08/01/16 09:30 08/01/16 08:00 08/01/16 09:30 08/01/16 08:00 Intake and Output: 08/01/16 08/01/16 06:59 18:59 Intake Total 740 Output Total 1350 Balance -610 - Medications Medications: Current Medications Albuterol/Ipratropium (Duoneb 3 Mg/0.5 Mg (3 Ml) Ud) 3 ml IH [id number] [facility] Last Admin: 08/01/16 13:46 Dose: 3 ml Ascorbic Acid (Vitamin C 500 Mg Tab) 500 mg PO DAILY [facility] Last Admin: 08/01/16 09:30 Dose: 500 mg Bisacodyl (Dulcolax) 10 mg RC Q8H PRN PRN Reason: Constipation Bisacodyl (Dulcolax) 5 mg PO DAILY PRN PRN Reason: Constipation Meropenem 1g/NS 100mL IVPB (Meropenem 1g/Ns 100ml Ivpb) 1 gm in 100 mls @ 100 mls/hr IVPB Q8 DONAL PRN Reason: Protocol Stop: 08/28/16 22:01 Last Admin: 08/01/16 13:59 Dose: 100 mls/hr Lidocaine HCl (Lidocaine 2% Viscous) 15 ml PO Q2H PRN PRN Reason: Throat Pain Last Admin: 07/24/16 15:00 Dose: 15 ml Metoclopramide HCl (Reglan) 10 mg IVP Q6 [facility] Last Admin: 08/01/16 11:19 Dose: 10 mg Metoprolol Tartrate (Lopressor) 25 mg PO BID [facility] Last Admin: 08/01/16 09:30 Dose: 25 mg Multivitamins/Minerals (Therapeutic-M Tab) 1 tab PO DAILY [facility] Last Admin: 08/01/16 09:30 Dose: 1 tab Nicotine (Nicoderm Cq) 1 patch TD DAILY [facility] Last Admin: 08/01/16 09:33 Dose: Not Given Pantoprazole Sodium (Protonix Inj) 40 mg IVP DAILY [facility] Last Admin: 08/01/16 09:30 Dose: 40 mg Petrolatum (Desitin Maximum Strength Topical 40% Oint) 0.1 gm TOP BID [facility] Last Admin: 08/01/16 13:59 Dose: 1 appl Warfarin Sodium (Coumadin) 7.5 mg PO 1800 [facility] PRN Reason: Protocol Zinc Sulfate (Zinc Sulfate 220 Mg Cap) 220 mg PO DAILY [facility] Last Admin: 08/01/16 09:30 Dose: 220 mg - Labs Labs: 08/01/16 07:00 08/01/16 07:00 PT 24.1 Seconds (9.9-11.8) H 08/01/16 07:00 INR 2.23 (0.93-1.08) H 08/01/16 07:00 APTT 30.7 Seconds (23.7-30.8) 07/30/16 06:30 Attending/Attestation - Attestation I have personally seen and examined this patient.: Yes I have fully participated in the care of the patient.: Yes I have reviewed all pertinent clinical information, including history, physical exam and plan: Yes Notes (Text): 08/01/16 16:00 attending note; I have seen and examined patient at bedside With resident. This is a 51 year old male with history of substance abuse (snorts cocaine), tobacco, alcohol use who got admitted for evaluation of back pain and found to have epidural abscess T1-T5, osteomyelitis, urinary retention and acute RLE DVT. He underwent emergent laminectomy and epidural abscess was drained. Wound culture is growing strep pneumonia. He has no noticeable improvement in neurological function however he has been getting involuntary spasms of his bilateral lower extremities. currently tolerating well. acute RLE DVT and is s/p IVC filter. continue Coumadin. INR is therapeutic. He has haque catheter for neurogenic bladder. Advised frequent turning to avoid pressure sores/air mattress /continue wound care. Currently afebrile and nontoxic. Blood culture is negative so far .urine culture is negative .follow up closely. Chest x-ray showed atelectasis. Currently patient is on Meropenem. switched back from rocephin due to rash by ID. Case discussed with returned case inspector/social scientist for discharge planning. Medicaid pending.
[2016-08-01] MEDS ORDERED: Bisacodyl 5mg EC Tab PO PRN (09:28)
[2016-08-01 09:29] LABS: ALB/GLOB RATIO 0.9 (1.1-1.8); ALBUMIN 3.4 g/dL (3.0-4.8); ALT/SGPT 83 U/L (7-56); AST/SGOT 52 U/L (15-59); BLOOD UREA NITROGEN 11 mg/dL (7-21); CALCIUM 8.8 mg/dL (8.4-10.5); GFR AFRICAN-AMERICAN > 60; GFR NON-AFRICAN AMERICAN > 60
[2016-08-01] MEDS: Multivitamin With Minerals Tab PO SCH (09:30)
--- NOTE | 2016-08-01 10:32 | PN ---
DATE: 08/01/2016 The patient is in bed in no acute distress, nontoxic. PHYSICAL EXAMINATION: VITAL SIGNS: Temperature is 98, blood pressure is 117/70, respiratory rate of 16. HEENT: Unremarkable. NECK: Supple. LUNGS: Have decreased breath sounds. HEART: Normal S1, S2. ABDOMEN: Soft, nontender. LABORATORY DATA: Reveals the white count is 4.3, hemoglobin of 10, platelets of 144. Chemistries re veal the BUN of 11, creatinine of 0.7. Microbiology is noted. The patient's rashes improved. ____ 's note is noted in reviewed. ASSESSMENT AND PLAN: This is a 51-year-old male with epidural abscess secondary to Streptococcus pne umonia associated with a cord compression, lower extremity paralysis, status post neurosurgery for ab scess drainage and laminectomy post-procedure, and partial small-bowel obstruction developed a rash o n ceftriaxone, currently on meropenem. He is tolerating meropenem well. Should have CBC, SMA-18, se d rate, C-reactive protein and imaging. Follow imaging. Colt Coronel MD cc: 350 TT: 08/01/2016 10:31:53 Confirmation # [id number] Dictation # [id number]
--- NOTE | 2016-08-01 12:14 | PN ---
DATE: 08/01/2016 The patient is in room 571, bed #2. REASON FOR CONSULTATION AND FOLLOWUP: Chest pain. HISTORY OF PRESENT ILLNESS: The patient was admitted with chest pain which was radiating from the sp inal abscess in the spine in the back and radiating to the front. After the spinal abscess was drain ed, the patient's chest pain resolved. The patient then also developed thrombophlebitis and also had intermittent ____ obstruction. He is stable now. He can move lower extremities. He is lying flat in bed without any chest pain, shortness of breath, palpitation. PHYSICAL EXAMINATION: VITAL SIGNS: Blood pressure 117/75, respirations 20, pulse 68, temperature 97.8. HEAD: Normocephalic. EYES: Pupils normal. Conjunctivae slightly pale. NECK: JVP low. Carotid equal. THORAX: AP diameter normal. LUNGS: Clear. CARDIOVASCULAR: S1, S2. ABDOMEN: Soft. No tenderness, no organomegaly. Bowel sounds normal. EXTREMITIES: No clubbing, no cyanosis. LABORATORY DATA: WBC 4.3, hemoglobin 10.6, hematocrit 32.1, platelets 144. Sodium 139, potassium 3. 9, BUN 11, creatinine 0.7. DIAGNOSES: Chest pain, resolved, which was related to referred pain from the spine; paraplegia; hist ory of abscess, status post drainage of the abscess; history of thrombophlebitis; history of respirat ory failure, successful extubation; intermittent small bowel obstruction which is also improved now. PLAN: The patient's cardiac status is clinically stable, so we will sign off. If you need us, pleas e reconsult. Jarrod Sumner MD cc: [id number] TT: 08/01/2016 12:13:17 Confirmation # [id number] Dictation # [id number]
[2016-08-01] MEDS: Zinc Oxide Topical 40% Oint (Desitin) TOP SCH ×2 (13:59→17:09)
[2016-08-02] MEDS: Albuterol-Ipratrop 3 mg / 0.5 (3 ml) UD IH SCH ×4 (01:06→19:57)
[2016-08-02] MEDS: Meropenem 1g/NS 100mL IVPB 1 GM/100 ML PIGGYBACK IVPB SCH ×3 (06:02→21:23)
[2016-08-02 08:11] LABS: BASO # 0.01 K/mm3 (0.0-2.0); BASO % 0.3 % (0.0-3.0); EOS # 0.2 (0.0-0.7); EOS % 3.8 % (1.5-5.0); GRAN # 2.22 (1.4-6.5); GRAN % 56.6 % (50.0-68.0); HEMOGLOBIN 10.6 gm/dL (14.0-18.0); INR 2.43 (0.93-1.08); LYMPH # 1.1 (1.2-3.4); LYMPH % 28.6 % (22.0-35.0); MEAN CELL VOLUME 90.5 fL (80.0-105.0); MEAN CORPUSCULAR HEMOGLOBIN 29.7 pg (25.0-35.0); MEAN CORPUSCULAR HGB CONC 32.8 g/dl (31.0-37.0); MEAN PLATELET VOLUME 11.8 fl (7.0-11.0); MONO # 0.4 (0.1-0.6); MONO % 10.7 % (1.0-6.0); PLATELET COUNT 168 10^3/uL (120.0-450.0); PROTHROMBIN TIME 26.2 Seconds (9.9-11.8); RBC 3.57 10^6/uL (3.5-6.1); RED CELL DISTRIBUTION WIDTH 14.3 % (11.5-14.5); WHITE BLOOD COUNT 3.9 10^3/ul (4.5-11.0)
[2016-08-02 08:22] LABS: ALBUMIN 3.3 g/dL (3.0-4.8); ALT/SGPT 75 U/L (7-56); AST/SGOT 38 U/L (15-59); BLOOD UREA NITROGEN 12 mg/dL (7-21); CALCIUM 8.8 mg/dL (8.4-10.5); GFR AFRICAN-AMERICAN > 60; GFR NON-AFRICAN AMERICAN > 60
[2016-08-02] MEDS: Multivitamin With Minerals Tab PO SCH (09:47)
[2016-08-02] MEDS ORDERED: Potassium Chloride 40 mEq/30 ml LIQ UD PO ONE (10:58)
[2016-08-02] MEDS: Zinc Oxide Topical 40% Oint (Desitin) TOP SCH ×2 (12:30→17:40)
--- NOTE | 2016-08-02 12:50 | PN ---
DATE: 08/02/2016 The patient is in bed in no acute distress, nontoxic, was seen early this morning. PHYSICAL EXAMINATION: VITAL SIGNS: Temperature is 98, blood pressure is 120/70, respiratory rate of 16. HEENT: Unremarkable. NECK: Supple. LUNGS: Have decreased breath sounds. HEART: Normal S1, S2. ABDOMEN: Soft. LABORATORY EXAMINATION: Reveals the white count is 3.9, hemoglobin of 10, platelets of 168. Gas Meter Reader jacob reveal a BUN of 12, creatinine of 0.5. Urinalysis is noted. Toxicology is noted and serology i s noted. Microbiology is reviewed. ASSESSMENT AND PLAN: A 51-year-old male with epidural abscess secondary to Streptococcus pneumoniae and associated with a cord compression and lower extremity paralysis, status post laminectomy and abs cess drainage, postprocedure developed partial small bowel obstruction and developed a rash on ceftri axone, currently on meropenem. Would repeat CBC, SMA-18, sed rate, C-reactive protein, and MRI of th e spine intermittently and the labs should be done weekly and neurosurgery followup, physical therapy . Colt Coronel MD cc: 350 TT: 08/02/2016 12:49:38 Confirmation # [id number] Dictation # [id number]
[2016-08-02] MEDS: Miconazole 2% Cream(30 gm) TOP SCH ×2 (13:19→17:43)
--- NOTE | 2016-08-02 13:26 | CP.PCM.PN ---
<Mariama Newman - Last Filed: 08/02/16 13:22> Subjective - Date & Time of Evaluation Date of Evaluation: 08/02/16 Time of Evaluation: 13:22 - Subjective Subjective: Hospitalist Progress Note Patient seen and examined at bedside. There were no acute overnight events. Patient reports starting to have some feeling in R leg. He was encouraged to continue using his incentive spirometer. He denies CP, SOB, n/v/d, numbness/ tingling, pain, fever or chills. Objective - Vital Signs/Intake and Output Vital Signs (last 24 hours): Temp Pulse Resp BP Pulse Ox 98.6 F 68 20 131/64 96 08/02/16 07:30 08/02/16 09:47 08/02/16 07:30 08/02/16 09:47 08/02/16 07:30 Intake and Output: 08/02/16 08/02/16 06:59 18:59 Intake Total 1020 Output Total 750 Balance 270 - Medications Medications: Current Medications Albuterol/Ipratropium (Duoneb 3 Mg/0.5 Mg (3 Ml) Ud) 3 ml IH [id number] [facility] Last Admin: 08/02/16 07:25 Dose: 3 ml Ascorbic Acid (Vitamin C 500 Mg Tab) 500 mg PO DAILY [facility] Last Admin: 08/02/16 11:54 Dose: 500 mg Bisacodyl (Dulcolax) 10 mg RC Q8H PRN PRN Reason: Constipation Bisacodyl (Dulcolax) 5 mg PO DAILY PRN PRN Reason: Constipation Meropenem 1g/NS 100mL IVPB (Meropenem 1g/Ns 100ml Ivpb) 1 gm in 100 mls @ 100 mls/hr IVPB Q8 [facility] PRN Reason: Protocol Stop: 08/28/16 22:01 Last Admin: 08/02/16 13:19 Dose: 100 mls/hr Lidocaine HCl (Lidocaine 2% Viscous) 15 ml PO Q2H PRN PRN Reason: Throat Pain Last Admin: 07/24/16 15:00 Dose: 15 ml Metoclopramide HCl (Reglan) 5 mg IVP Q6 PRN PRN Reason: Nausea/Vomiting Metoprolol Tartrate (Lopressor) 25 mg PO BID [facility] Last Admin: 08/02/16 09:47 Dose: 25 mg Miconazole Nitrate (Miconazole 2% Cream) 0 ea TOP BID [facility] Last Admin: 08/02/16 13:19 Dose: 1 applic Multivitamins/Minerals (Therapeutic-M Tab) 1 tab PO DAILY [facility] Last Admin: 08/02/16 09:47 Dose: 1 tab Nicotine (Nicoderm Cq) 1 patch TD DAILY [facility] Last Admin: 08/02/16 11:17 Dose: Not Given Ondansetron HCl (Zofran Inj) 4 mg IVP Q6H PRN PRN Reason: Nausea/Vomiting Pantoprazole Sodium (Protonix Inj) 40 mg IVP DAILY [facility] Last Admin: 08/02/16 09:55 Dose: 40 mg Petrolatum (Desitin Maximum Strength Topical 40% Oint) 0.1 gm TOP BID [facility] Last Admin: 08/02/16 12:30 Dose: Not Given Warfarin Sodium (Coumadin) 7.5 mg PO 1800 [facility] PRN Reason: Protocol Last Admin: 08/01/16 17:08 Dose: 7.5 mg Zinc Sulfate (Zinc Sulfate 220 Mg Cap) 220 mg PO DAILY [facility] Last Admin: 08/02/16 09:47 Dose: 220 mg - Labs Labs: 08/02/16 07:57 08/02/16 07:57 PT 26.2 Seconds (9.9-11.8) H 08/02/16 07:57 INR 2.43 (0.93-1.08) H 08/02/16 07:57 APTT 30.7 Seconds (23.7-30.8) 07/30/16 06:30 - Constitutional Appears: No Acute Distress - Head Exam Head Exam: ATRAUMATIC, NORMAL INSPECTION, NORMOCEPHALIC - Eye Exam Eye Exam: Normal appearance Pupil Exam: NORMAL ACCOMODATION - ENT Exam ENT Exam: Mucous Membranes Moist - Respiratory Exam Respiratory Exam: Clear to Ausculation Bilateral, NORMAL BREATHING PATTERN. absent: Rales, Rhonchi, Wheezes - Cardiovascular Exam Cardiovascular Exam: REGULAR RHYTHM, +S1, +S2. absent: Gallop, Rubs, Murmur - GI/Abdominal Exam GI & Abdominal Exam: Soft, Normal Bowel Sounds. absent: Rigid, Tenderness, Mass , Rebound - Extremities Exam Extremities Exam: Normal Inspection - Neurological Exam Neuro motor strength exam: Left Upper Extremity: 5, Right Upper Extremity: 5, Left Lower Extremity: 0, Right Lower Extremity: 0 Additional comments: Some sensation to touch in R lower extremity - Psychiatric Exam Psychiatric exam: Normal Affect, Normal Mood - Skin Skin Exam: Dry, Normal Color, Warm Additional comments: excoriation and erythema on sacrum Assessment and Plan - Assessment and Plan (Free Text) Assessment: This is a 51Y M with no PMH admitted for spinal epidural abscess s/p T2-T4 Lamenectomy and R LE DVT s/p IVC filter. Plan: 1. Epidural abscess s/p lamenectomy T2-T4 - Pt has increased sensation on R leg and involuntary spasms of legs bilaterally - Wound culture positive for strep pneumo - ID consulted - Tramadol prn pain - Continue Merrem (switched from Rocephin due to rash) 2. Lower extremity paralysis - continue physical therapy - Continue to turn patient q2h to prevent stress ulcers - Miconazole cream added for ulcers - Continue Multivitamin, Vit C and Zinc 3. Neurogenic Bowel/Ileus - Pt having regular BM - Continue Reglan prn, Zofran prn - Ducolax prn 4. Neurogenic Bladder - Urology consulted- recs appreciated - Pt has haque- will need suprapubic cath as outpatient 5. DVT s/p IVC filter - Continue Coumadin 7.5mg - Continue to monitor INR, will adjust Coumadin as needed 6. Iron Deficiency Anemia - Hgb Stable - Continue to monitor - Continue Multivitamins 7. Pressure Ulcer - on Sacrum and Buttocks - Continue air mattress, reposition q2h - continue wound care - Miconazole cream added - Continue Multivitamin, Vit C and Zinc GI ppx: Protonix DVT ppx: Coumadin Case seen, reviewed and discussed with attending [facility] PGY1 <Tobin Piedra - Last Filed: 08/02/16 15:09> Objective - Vital Signs/Intake and Output Vital Signs (last 24 hours): Temp Pulse Resp BP Pulse Ox 98.6 F 68 20 131/64 96 08/02/16 07:30 08/02/16 09:47 08/02/16 07:30 08/02/16 09:47 08/02/16 07:30 Intake and Output: 08/02/16 08/02/16 06:59 18:59 Intake Total 1020 Output Total 750 Balance 270 - Medications Medications: Current Medications Albuterol/Ipratropium (Duoneb 3 Mg/0.5 Mg (3 Ml) Ud) 3 ml IH [id number] [facility] Last Admin: 08/02/16 14:07 Dose: 3 ml Ascorbic Acid (Vitamin C 500 Mg Tab) 500 mg PO DAILY [facility] Last Admin: 08/02/16 11:54 Dose: 500 mg Bisacodyl (Dulcolax) 10 mg RC Q8H PRN PRN Reason: Constipation Bisacodyl (Dulcolax) 5 mg PO DAILY PRN PRN Reason: Constipation Meropenem 1g/NS 100mL IVPB (Meropenem 1g/Ns 100ml Ivpb) 1 gm in 100 mls @ 100 mls/hr IVPB Q8 [facility] PRN Reason: Protocol Stop: 08/28/16 22:01 Last Admin: 08/02/16 13:19 Dose: 100 mls/hr Lidocaine HCl (Lidocaine 2% Viscous) 15 ml PO Q2H PRN PRN Reason: Throat Pain Last Admin: 07/24/16 15:00 Dose: 15 ml Metoclopramide HCl (Reglan) 5 mg IVP Q6 PRN PRN Reason: Nausea/Vomiting Metoprolol Tartrate (Lopressor) 25 mg PO BID [facility] Last Admin: 08/02/16 09:47 Dose: 25 mg Miconazole Nitrate (Miconazole 2% Cream) 0 ea TOP BID [facility] Last Admin: 08/02/16 13:19 Dose: 1 applic Multivitamins/Minerals (Therapeutic-M Tab) 1 tab PO DAILY [facility] Last Admin: 08/02/16 09:47 Dose: 1 tab Nicotine (Nicoderm Cq) 1 patch TD DAILY [facility] Last Admin: 08/02/16 11:17 Dose: Not Given Ondansetron HCl (Zofran Inj) 4 mg IVP Q6H PRN PRN Reason: Nausea/Vomiting Pantoprazole Sodium (Protonix Inj) 40 mg IVP DAILY [facility] Last Admin: 08/02/16 09:55 Dose: 40 mg Petrolatum (Desitin Maximum Strength Topical 40% Oint) 0.1 gm TOP BID [facility] Last Admin: 08/02/16 12:30 Dose: Not Given Warfarin Sodium (Coumadin) 7.5 mg PO 1800 [facility] PRN Reason: Protocol Last Admin: 08/01/16 17:08 Dose: 7.5 mg Zinc Sulfate (Zinc Sulfate 220 Mg Cap) 220 mg PO DAILY [facility] Last Admin: 08/02/16 09:47 Dose: 220 mg - Labs Labs: 08/02/16 07:57 08/02/16 07:57 PT 26.2 Seconds (9.9-11.8) H 08/02/16 07:57 INR 2.43 (0.93-1.08) H 08/02/16 07:57 APTT 30.7 Seconds (23.7-30.8) 07/30/16 06:30 Attending/Attestation - Attestation I have personally seen and examined this patient.: Yes I have fully participated in the care of the patient.: Yes I have reviewed all pertinent clinical information, including history, physical exam and plan: Yes Notes (Text): 08/02/16 15:07 attending note; I have seen and examined the patient at bedside With resident. This is a 51 year old male with history of substance abuse (snorts cocaine), tobacco, alcohol use who got admitted for evaluation of back pain and found to have epidural abscess T1-T5, osteomyelitis, urinary retention and acute RLE DVT. He underwent emergent laminectomy and epidural abscess was drained. ON meropenem.some movements and sensation in R leg. some involuntary twitching movements on both LE. currently tolerating well. acute RLE DVT and is s/p IVC filter. continue Coumadin. INR is therapeutic. He has haque catheter for neurogenic bladder. Advised frequent turning to avoid pressure sores/air mattress /continue wound care. Currently patient is on Meropenem. Case discussed with case assistant/social worker clinical for discharge planning. pending placement.
[2016-08-03] MEDS: Albuterol-Ipratrop 3 mg / 0.5 (3 ml) UD IH SCH ×4 (01:48→20:35)
[2016-08-03] MEDS: Meropenem 1g/NS 100mL IVPB 1 GM/100 ML PIGGYBACK IVPB SCH ×3 (05:45→21:31)
[2016-08-03 08:46] LABS: INR 2.6 (0.93-1.08); PROTHROMBIN TIME 28.1 Seconds (9.9-11.8)
[2016-08-03 08:48] LABS: ALBUMIN 3.4 g/dL (3.0-4.8); ALT/SGPT 76 U/L (7-56); AST/SGOT 36 U/L (15-59); BLOOD UREA NITROGEN 12 mg/dL (7-21); CALCIUM 9.1 mg/dL (8.4-10.5); GFR AFRICAN-AMERICAN > 60; GFR NON-AFRICAN AMERICAN > 60
[2016-08-03 09:25] LABS: BASO # 0.02 K/mm3 (0.0-2.0); BASO % 0.4 % (0.0-3.0); EOS # 0.2 (0.0-0.7); EOS % 4.2 % (1.5-5.0); GRAN # 2.61 (1.4-6.5); GRAN % 57.2 % (50.0-68.0); HEMOGLOBIN 11.3 gm/dL (14.0-18.0); LYMPH # 1.2 (1.2-3.4); MEAN CELL VOLUME 90.4 fL (80.0-105.0); MEAN CORPUSCULAR HEMOGLOBIN 30.1 pg (25.0-35.0); MEAN CORPUSCULAR HGB CONC 33.2 g/dl (31.0-37.0); MONO # 0.5 (0.1-0.6); MONO % 11.2 % (1.0-6.0); PLATELET COUNT 177 10^3/uL (120.0-450.0); RBC 3.76 10^6/uL (3.5-6.1); RED CELL DISTRIBUTION WIDTH 14.3 % (11.5-14.5); WHITE BLOOD COUNT 4.6 10^3/ul (4.5-11.0)
[2016-08-03] MEDS: Miconazole 2% Cream(30 gm) TOP SCH ×2 (10:48→17:40)
[2016-08-03] MEDS: Multivitamin With Minerals Tab PO SCH (10:48)
--- NOTE | 2016-08-03 11:09 | CP.PCM.PN ---
<Mariama Newmna - Last Filed: 08/03/16 11:06> Subjective - Date & Time of Evaluation Date of Evaluation: 08/03/16 Time of Evaluation: 11:06 - Subjective Subjective: Hospitalist Progress Note Patient seen and examined at bedside. There were no acute overnight events. Patient was in good spirits today. He reports having more sensation on his R lower leg and lower abdomen. He says he has trouble sleeping at night, but denies CP, SOB, n/v/d, numbness/tingling, fever, chills. Objective - Vital Signs/Intake and Output Vital Signs (last 24 hours): Temp Pulse Resp BP Pulse Ox 97.8 F 67 18 131/81 96 08/03/16 07:48 08/03/16 10:49 08/03/16 07:48 08/03/16 10:49 08/03/16 07:48 Intake and Output: 08/03/16 08/03/16 06:59 18:59 Intake Total 660 Output Total 900 Balance -240 - Medications Medications: Current Medications Albuterol/Ipratropium (Duoneb 3 Mg/0.5 Mg (3 Ml) Ud) 3 ml IH [id number] [facility] Last Admin: 08/03/16 07:20 Dose: 3 ml Ascorbic Acid (Vitamin C 500 Mg Tab) 500 mg PO DAILY [facility] Last Admin: 08/03/16 10:48 Dose: 500 mg Bisacodyl (Dulcolax) 10 mg RC Q8H PRN PRN Reason: Constipation Bisacodyl (Dulcolax) 5 mg PO DAILY PRN PRN Reason: Constipation Diphenhydramine HCl (Benadryl) 25 mg PO HS PRN PRN Reason: Insomnia Meropenem 1g/NS 100mL IVPB (Meropenem 1g/Ns 100ml Ivpb) 1 gm in 100 mls @ 100 mls/hr IVPB Q8 [facility] PRN Reason: Protocol Stop: 08/28/16 22:01 Last Admin: 08/03/16 05:45 Dose: 100 mls/hr Lidocaine HCl (Lidocaine 2% Viscous) 15 ml PO Q2H PRN PRN Reason: Throat Pain Last Admin: 07/24/16 15:00 Dose: 15 ml Metoclopramide HCl (Reglan) 5 mg IVP Q6 PRN PRN Reason: Nausea/Vomiting Metoprolol Tartrate (Lopressor) 25 mg PO BID [facility] Last Admin: 08/03/16 10:49 Dose: 25 mg Miconazole Nitrate (Miconazole 2% Cream) 0 ea TOP BID [facility] Last Admin: 08/03/16 10:48 Dose: 1 applic Multivitamins/Minerals (Therapeutic-M Tab) 1 tab PO DAILY [facility] Last Admin: 08/03/16 10:48 Dose: 1 tab Nicotine (Nicoderm Cq) 1 patch TD DAILY [facility] Last Admin: 08/03/16 10:49 Dose: Not Given Ondansetron HCl (Zofran Inj) 4 mg IVP Q6H PRN PRN Reason: Nausea/Vomiting Pantoprazole Sodium (Protonix Inj) 40 mg IVP DAILY [facility] Last Admin: 08/03/16 10:48 Dose: 40 mg Warfarin Sodium (Coumadin) 7.5 mg PO 1800 [facility] PRN Reason: Protocol Last Admin: 08/02/16 17:41 Dose: 7.5 mg Zinc Sulfate (Zinc Sulfate 220 Mg Cap) 220 mg PO DAILY [facility] Last Admin: 08/03/16 10:48 Dose: 220 mg - Labs Labs: 08/03/16 08:28 08/03/16 08:28 PT 28.1 Seconds (9.9-11.8) H 08/03/16 08:28 INR 2.60 (0.93-1.08) H 08/03/16 08:28 APTT 30.7 Seconds (23.7-30.8) 07/30/16 06:30 - Constitutional Appears: No Acute Distress - Head Exam Head Exam: ATRAUMATIC, NORMAL INSPECTION, NORMOCEPHALIC - Eye Exam Eye Exam: Normal appearance Pupil Exam: NORMAL ACCOMODATION - ENT Exam ENT Exam: Mucous Membranes Moist - Respiratory Exam Respiratory Exam: Clear to Ausculation Bilateral, NORMAL BREATHING PATTERN. absent: Rales, Rhonchi, Wheezes - Cardiovascular Exam Cardiovascular Exam: REGULAR RHYTHM, +S1, +S2. absent: Gallop, Rubs, Murmur - GI/Abdominal Exam GI & Abdominal Exam: Soft, Normal Bowel Sounds. absent: Rigid, Tenderness, Mass , Rebound - Extremities Exam Extremities Exam: Normal Inspection. absent: Calf Tenderness, Pedal Edema - Neurological Exam Neurological Exam: Alert, Awake, CN II-XII Intact, Oriented x3 Neuro motor strength exam: Left Upper Extremity: 5, Right Upper Extremity: 5, Left Lower Extremity: 0, Right Lower Extremity: 0 Additional comments: Patient has increased sensation in abdomen and R lower extremity. - Psychiatric Exam Psychiatric exam: Normal Affect, Normal Mood - Skin Skin Exam: Dry, Normal Color, Warm Additional comments: Excoriation on buttocks and sacrum Assessment and Plan - Assessment and Plan (Free Text) Assessment: This is a 51Y M with no PMH admitted for spinal epidural abscess s/p T2-T4 Lamenectomy and R LE DVT s/p IVC filter. Plan: 1. Epidural abscess s/p lamenectomy T2-T4 - Wound culture of abscess positive for strep pneumo - Continue Merrem - ID consulted-recs appreciated - Tramadol prn pain - Pt has increased sensation on abdomen and R leg and involuntary spasms of legs bilaterally 2. Lower extremity paralysis - Turn patient q2h to prevent stress ulcers - Miconazole cream - Continue Multivitamin, Vit C and Zinc - Pt encouraged to use incentive spirometer - Pt encourage to work with physical therapy 3. Neurogenic Bowel/Ileus - Ducolax prn, Reglan prn, Zofran prn - Continue to monitor BM 4. Neurogenic Bladder - Haque changed today - Urology consulted- recs appreciated- recommended suprapubic catheter in future 5. DVT s/p IVC filter - Continue Coumadin - INR stable and therapeutic - Continue to monitor INR - will adjust Coumadin as needed 6. Iron Deficiency Anemia - Hgb Stable - Continue Multivitamins 7. Pressure Ulcer (Stage II) - air mattress, reposition q2h - Continue wound care - Miconazole cream - Continue Multivitamin, Vit C and Zinc GI ppx: Protonix DVT ppx: Coumadin Case seen, reviewed and discussed with attending [facility] PGY1 <Tobin Piedra - Last Filed: 08/03/16 13:28> Objective - Vital Signs/Intake and Output Vital Signs (last 24 hours): Temp Pulse Resp BP Pulse Ox 97.8 F 67 18 131/81 96 08/03/16 07:48 08/03/16 10:49 08/03/16 07:48 08/03/16 10:49 08/03/16 07:48 Intake and Output: 08/03/16 08/03/16 06:59 18:59 Intake Total 660 Output Total 900 Balance -240 - Medications Medications: Current Medications Albuterol/Ipratropium (Duoneb 3 Mg/0.5 Mg (3 Ml) Ud) 3 ml IH [id number] [facility] Last Admin: 08/03/16 07:20 Dose: 3 ml Ascorbic Acid (Vitamin C 500 Mg Tab) 500 mg PO DAILY [facility] Last Admin: 08/03/16 10:48 Dose: 500 mg Bisacodyl (Dulcolax) 10 mg RC Q8H PRN PRN Reason: Constipation Bisacodyl (Dulcolax) 5 mg PO DAILY PRN PRN Reason: Constipation Diphenhydramine HCl (Benadryl) 25 mg PO HS PRN PRN Reason: Insomnia Meropenem 1g/NS 100mL IVPB (Meropenem 1g/Ns 100ml Ivpb) 1 gm in 100 mls @ 100 mls/hr IVPB Q8 [facility] PRN Reason: Protocol Stop: 08/28/16 22:01 Last Admin: 08/03/16 13:04 Dose: 100 mls/hr Lidocaine HCl (Lidocaine 2% Viscous) 15 ml PO Q2H PRN PRN Reason: Throat Pain Last Admin: 07/24/16 15:00 Dose: 15 ml Metoclopramide HCl (Reglan) 5 mg IVP Q6 PRN PRN Reason: Nausea/Vomiting Metoprolol Tartrate (Lopressor) 25 mg PO BID [facility] Last Admin: 08/03/16 10:49 Dose: 25 mg Miconazole Nitrate (Miconazole 2% Cream) 0 ea TOP BID [facility] Last Admin: 08/03/16 10:48 Dose: 1 applic Multivitamins/Minerals (Therapeutic-M Tab) 1 tab PO DAILY [facility] Last Admin: 08/03/16 10:48 Dose: 1 tab Nicotine (Nicoderm Cq) 1 patch TD DAILY [facility] Last Admin: 08/03/16 10:49 Dose: Not Given Ondansetron HCl (Zofran Inj) 4 mg IVP Q6H PRN PRN Reason: Nausea/Vomiting Pantoprazole Sodium (Protonix Inj) 40 mg IVP DAILY [facility] Last Admin: 08/03/16 10:48 Dose: 40 mg Warfarin Sodium (Coumadin) 7.5 mg PO 1800 [facility] PRN Reason: Protocol Last Admin: 08/02/16 17:41 Dose: 7.5 mg Zinc Sulfate (Zinc Sulfate 220 Mg Cap) 220 mg PO DAILY [facility] Last Admin: 08/03/16 10:48 Dose: 220 mg - Labs Labs: 08/03/16 08:28 08/03/16 08:28 PT 28.1 Seconds (9.9-11.8) H 08/03/16 08:28 INR 2.60 (0.93-1.08) H 08/03/16 08:28 APTT 30.7 Seconds (23.7-30.8) 07/30/16 06:30 Attending/Attestation - Attestation I have personally seen and examined this patient.: Yes I have fully participated in the care of the patient.: Yes I have reviewed all pertinent clinical information, including history, physical exam and plan: Yes Notes (Text): 08/03/16 13:28 attending note; I have seen and examined the patient at bedside With resident. This is a 51 year old male with history of substance abuse (snorts cocaine), tobacco, alcohol use who got admitted for evaluation of back pain and found to have epidural abscess T1-T5, osteomyelitis, urinary retention and acute RLE DVT. He underwent emergent laminectomy and epidural abscess was drained. ON meropenem.some movements and sensation in R leg. some involuntary twitching movements on both LE. currently tolerating well. acute RLE DVT and is s/p IVC filter. continue Coumadin. INR is therapeutic. He has haque catheter for neurogenic bladder. Advised frequent turning to avoid pressure sores/air mattress /continue wound care. Currently patient is on Meropenem. Case discussed with continuous pillowcase cutter/social research assistant for discharge planning. pending placement.
--- NOTE | 2016-08-03 11:47 | PN ---
DATE: 08/03/2016 The patient is in bed in no acute distress, nontoxic. PHYSICAL EXAMINATION: VITAL SIGNS: Temperature is 98. Blood pressure is 112/70, respiratory rate 16. HEENT: Unremarkable. NECK: Supple. LUNGS: Have decreased breath sounds. HEART: Normal S1, S2. ABDOMEN: Soft. LABORATORY EXAMINATION: Reveals a white count of 4.6, hemoglobin of 11. BUN of 12, creatinine of 0. 5. The urinalysis is noted. Immunology is noted. Serology is noted. Microbiology is noted. ASSESSMENT AND PLAN: This is a 51-year-old male with epidural abscess secondary to Streptococcus pne umonia associated with cord compression and lower extremity paralysis, status post laminectomy and ab scess drainage postop, post-procedure developed partial small-bowel obstruction, developed a rash on ceftriaxone. Currently, on meropenem. Will need weekly CBC, SMA-18, sed rate, C-reactive protein, a nd will also need intermittent of 7-10 days of MRI of the spine. Colt Coronel MD cc: [id number] TT: 08/03/2016 11:47:18 Confirmation # [id number] Dictation # [id number]
[2016-08-03] MEDS ORDERED: Potassium Chloride 20 mEq ER Tab PO ONE (15:16)
[2016-08-03] MEDS: DiphenhydrAMINE 12.5 mg/5 ml LIQ UD (5 ml) PO PRN (21:31)
[2016-08-04] MEDS: Albuterol-Ipratrop 3 mg / 0.5 (3 ml) UD IH SCH ×4 (02:20→19:44)
[2016-08-04] MEDS: Meropenem 1g/NS 100mL IVPB 1 GM/100 ML PIGGYBACK IVPB SCH ×3 (05:24→21:46)
[2016-08-04 07:16] LABS: INR 2.82 (0.93-1.08); PROTHROMBIN TIME 30.5 Seconds (9.9-11.8)
[2016-08-04 07:24] LABS: ALB/GLOB RATIO 0.9 (1.1-1.8); ALBUMIN 3.5 g/dL (3.0-4.8); ALT/SGPT 72 U/L (7-56); AST/SGOT 41 U/L (15-59); BLOOD UREA NITROGEN 11 mg/dL (7-21); CALCIUM 9.2 mg/dL (8.4-10.5); GFR AFRICAN-AMERICAN > 60; GFR NON-AFRICAN AMERICAN > 60
[2016-08-04 07:41] LABS: BASO # 0.02 K/mm3 (0.0-2.0); BASO % 0.4 % (0.0-3.0); EOS # 0.2 (0.0-0.7); EOS % 3.9 % (1.5-5.0); GRAN # 3.33 (1.4-6.5); GRAN % 59.8 % (50.0-68.0); HEMOGLOBIN 11.1 gm/dL (14.0-18.0); LYMPH # 1.4 (1.2-3.4); LYMPH % 24.2 % (22.0-35.0); MEAN CORPUSCULAR HEMOGLOBIN 29.7 pg (25.0-35.0); MEAN CORPUSCULAR HGB CONC 31.9 g/dl (31.0-37.0); MONO # 0.7 (0.1-0.6); MONO % 11.7 % (1.0-6.0); PLATELET COUNT 185 10^3/uL (120.0-450.0); RBC 3.74 10^6/uL (3.5-6.1); RED CELL DISTRIBUTION WIDTH 14.5 % (11.5-14.5); WHITE BLOOD COUNT 5.6 10^3/ul (4.5-11.0)
[2016-08-04] MEDS: Pantoprazole 40 mg EC Tab PO SCH (08:15)
--- NOTE | 2016-08-04 09:12 | CP.PCM.PN ---
<Keri Guzman - Last Filed: 08/04/16 14:36> Subjective - Date & Time of Evaluation Date of Evaluation: 08/04/16 Time of Evaluation: 09:02 - Subjective Subjective: HOSPITALIST PROGRESS NOTE Pt is seen and examined. No acute events overnight. Patient denies having any CP, SOB, REINA, N/V. Patient states that he continues to have spastic activity in his lower extremities. Objective - Vital Signs/Intake and Output Vital Signs (last 24 hours): Temp Pulse Resp BP Pulse Ox 98.7 F 59 L 20 130/84 97 08/04/16 07:30 08/04/16 07:30 08/04/16 07:30 08/04/16 07:30 08/04/16 07:30 Intake and Output: 08/04/16 08/04/16 06:59 18:59 Intake Total 1020 Output Total 3000 Balance -1980 - Medications Medications: Current Medications Albuterol/Ipratropium (Duoneb 3 Mg/0.5 Mg (3 Ml) Ud) 3 ml IH [id number] [facility] Last Admin: 08/04/16 07:17 Dose: 3 ml Ascorbic Acid (Vitamin C 500 Mg Tab) 500 mg PO DAILY [facility] Last Admin: 08/03/16 10:48 Dose: 500 mg Bisacodyl (Dulcolax) 10 mg RC Q8H PRN PRN Reason: Constipation Bisacodyl (Dulcolax) 5 mg PO DAILY PRN PRN Reason: Constipation Diphenhydramine HCl (Benadryl) 25 mg PO HS PRN PRN Reason: Insomnia Last Admin: 08/03/16 21:31 Dose: 25 mg Meropenem 1g/NS 100mL IVPB (Meropenem 1g/Ns 100ml Ivpb) 1 gm in 100 mls @ 100 mls/hr IVPB Q8 DONAL PRN Reason: Protocol Stop: 08/28/16 22:01 Last Admin: 08/04/16 05:24 Dose: 100 mls/hr Lidocaine HCl (Lidocaine 2% Viscous) 15 ml PO Q2H PRN PRN Reason: Throat Pain Last Admin: 07/24/16 15:00 Dose: 15 ml Metoclopramide HCl (Reglan) 5 mg IVP Q6 PRN PRN Reason: Nausea/Vomiting Metoprolol Tartrate (Lopressor) 25 mg PO BID [facility] Last Admin: 08/03/16 17:40 Dose: 25 mg Miconazole Nitrate (Miconazole 2% Cream) 0 ea TOP BID [facility] Last Admin: 08/03/16 17:40 Dose: 1 applic Multivitamins/Minerals (Therapeutic-M Tab) 1 tab PO DAILY [facility] Last Admin: 08/03/16 10:48 Dose: 1 tab Nicotine (Nicoderm Cq) 1 patch TD DAILY [facility] Last Admin: 08/03/16 10:49 Dose: Not Given Ondansetron HCl (Zofran Inj) 4 mg IVP Q6H PRN PRN Reason: Nausea/Vomiting Pantoprazole Sodium (Protonix Ec Tab) 40 mg PO ACB [facility] Last Admin: 08/04/16 08:15 Dose: 40 mg Warfarin Sodium (Coumadin) 7.5 mg PO 1800 [facility] PRN Reason: Protocol Last Admin: 08/03/16 17:40 Dose: 7.5 mg Zinc Sulfate (Zinc Sulfate 220 Mg Cap) 220 mg PO DAILY [facility] Last Admin: 08/03/16 10:48 Dose: 220 mg - Labs Labs: 08/04/16 07:00 08/04/16 07:00 PT 30.5 Seconds (9.9-11.8) H* 08/04/16 07:00 INR 2.82 (0.93-1.08) H 08/04/16 07:00 APTT 30.7 Seconds (23.7-30.8) 07/30/16 06:30 - Constitutional Appears: Non-toxic, No Acute Distress - Head Exam Head Exam: ATRAUMATIC - ENT Exam ENT Exam: Mucous Membranes Moist - Respiratory Exam Respiratory Exam: Rhonchi. absent: Rales, Wheezes - Cardiovascular Exam Cardiovascular Exam: REGULAR RHYTHM, +S1, +S2. absent: Gallop, Rubs, Murmur - GI/Abdominal Exam GI & Abdominal Exam: Soft, Normal Bowel Sounds. absent: Distended, Firm, Guarding, Rigid, Tenderness - Extremities Exam Extremities Exam: absent: Pedal Edema, Tenderness - Neurological Exam Neurological Exam: Alert, Awake, Oriented x3 - Psychiatric Exam Psychiatric exam: Normal Affect, Normal Mood - Skin Skin Exam: Dry, Intact, Normal Color, Warm Assessment and Plan - Assessment and Plan (Free Text) Assessment: 51 year old male with no significant past medical history is s/p T2-T4 lamenectomy on 07/07/16 US of LE showed R LE DVT s/p IVC filter 1. 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 See report for full details 2. 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 Boots in place - Pt has involuntary spasm of legs. - Will start Baclofen 20 mg PO BID for involuntary spasms - Will continue to monitor. 3. Neurogenic bowel vs. ileus - Full diet but will monitor closely - Continue bowel regimen of Reglan 10 mg IV ACHS, Dulcolax PO and RC PRN - C. diff 07/24 negative 5. Neurogenic bladder - Haque in place - Urology dr Iqbal is consulted - Will likely require suprapubic cath at some time in future 6. R LE DVT s/p IVC filter placed - Continue Coumadin 5 mg po today. Will monitor INR - INR currently therapeutic 7. Iron deficiency anemia - Will cont to monitor - H&H is stable - Iron 35 (low), TIBC 325 (normal), Ferritin 11 (low), Vit B12 327 (Normal), folate 7.8 (normal) 8. multiple stage 2 pressure ulcer on sacrum and buttock - air mattress and continue to reposition q2H - multivit, zinv, vitamin C PO ordered - Wound care is consulted Prophylaxis - Protonix - coumadin Case and plan was seen, reviewed, and discussed in detail with Dr Marc <Tutu Marc B - Last Filed: 08/04/16 15:56> Objective - Vital Signs/Intake and Output Vital Signs (last 24 hours): Temp Pulse Resp BP Pulse Ox 98.7 F 59 L 20 130/84 97 08/04/16 07:30 08/04/16 07:30 08/04/16 07:30 08/04/16 07:30 08/04/16 07:30 Intake and Output: 08/04/16 08/04/16 06:59 18:59 Intake Total 1020 480 Output Total 3000 800 Balance -1979 - - Medications Medications: Current Medications Albuterol/Ipratropium (Duoneb 3 Mg/0.5 Mg (3 Ml) Ud) 3 ml IH [id number] [facility] Last Admin: 08/04/16 13:26 Dose: 3 ml Ascorbic Acid (Vitamin C 500 Mg Tab) 500 mg PO DAILY [facility] Last Admin: 08/04/16 10:11 Dose: 500 mg Baclofen (Lioresal) 20 mg PO BID [facility] Bisacodyl (Dulcolax) 5 mg PO DAILY PRN PRN Reason: Constipation Diphenhydramine HCl (Benadryl) 25 mg PO HS PRN PRN Reason: Insomnia Last Admin: 08/03/16 21:31 Dose: 25 mg Meropenem 1g/NS 100mL IVPB (Meropenem 1g/Ns 100ml Ivpb) 1 gm in 100 mls @ 100 mls/hr IVPB Q8 DONAL PRN Reason: Protocol Stop: 08/28/16 22:01 Last Admin: 08/04/16 13:21 Dose: 100 mls/hr Lidocaine HCl (Lidocaine 2% Viscous) 15 ml PO Q2H PRN PRN Reason: Throat Pain Last Admin: 07/24/16 15:00 Dose: 15 ml Metoclopramide HCl (Reglan) 5 mg IVP Q6 PRN PRN Reason: Nausea/Vomiting Metoprolol Tartrate (Lopressor) 25 mg PO BID [facility] Last Admin: 08/04/16 10:11 Dose: 25 mg Miconazole Nitrate (Miconazole 2% Cream) 0 ea TOP BID [facility] Last Admin: 08/04/16 10:13 Dose: 1 applic Multivitamins/Minerals (Therapeutic-M Tab) 1 tab PO DAILY [facility] Last Admin: 08/04/16 10:11 Dose: 1 tab Nicotine (Nicoderm Cq) 1 patch TD DAILY [facility] Last Admin: 08/04/16 10:12 Dose: Not Given Ondansetron HCl (Zofran Inj) 4 mg IVP Q6H PRN PRN Reason: Nausea/Vomiting Pantoprazole Sodium (Protonix Ec Tab) 40 mg PO ACB [facility] Last Admin: 08/04/16 08:15 Dose: 40 mg Warfarin Sodium (Coumadin) 5 mg PO 1800 DON[facility] PRN Reason: Protocol Zinc Sulfate (Zinc Sulfate 220 Mg Cap) 220 mg PO DAILY [facility] Last Admin: 08/04/16 10:11 Dose: 220 mg - Labs Labs: 08/04/16 07:00 08/04/16 07:00 PT 30.5 Seconds (9.9-11.8) H* 08/04/16 07:00 INR 2.82 (0.93-1.08) H 08/04/16 07:00 APTT 30.7 Seconds (23.7-30.8) 07/30/16 06:30 Attending/Attestation - Attestation I have personally seen and examined this patient.: Yes I have fully participated in the care of the patient.: Yes I have reviewed all pertinent clinical information, including history, physical exam and plan: Yes Notes (Text): I have seen and examined the patient at bedside.This is a 51 year old male with history of substance abuse (snorts cocaine), tobacco, alcohol use who got admitted for evaluation of back pain and found to have epidural abscess T1-T5, osteomyelitis, urinary retention and acute RLE DVT s/p IVC filter on coumadin. He underwent emergent laminectomy and epidural abscess was drained on meropenem. He now has involuntary spasm of Lower extremities probably due to loss of cortical inhibition. Will start baclofen 20 mg po bid. He has haque catheter for neurogenic bladder. Advised frequent turning to avoid pressure sores/air mattress /continue wound care. Case discussed with porter sample case/ social studies teacher for discharge planning. Pending placement. Dr Tutu Marc
[2016-08-04] MEDS: Multivitamin With Minerals Tab PO SCH (10:11)
[2016-08-04] MEDS: Miconazole 2% Cream(30 gm) TOP SCH (10:13)
--- NOTE | 2016-08-04 17:09 | PN ---
DATE: 08/04/2016 SUBJECTIVE: The patient is in bed in room 571, bed 2. No fevers and no chills. PHYSICAL EXAMINATION: VITAL SIGNS: Temperature is 98, blood pressure is 130/80, respiratory rate of 18. HEENT: Unremarkable. NECK: Supple. LUNGS: Have decreased breath sounds. HEART: Normal S1, S2. ABDOMEN: Soft, nontender. LABORATORY DATA: Reviewed. REVIEW OF ORDERS: Reveals the patient to be on meropenem. ASSESSMENT AND PLAN: A 51-year-old male with epidural abscess secondary to Streptococcus pneumoniae with cord compression and lower extremity paralysis status post laminectomy and abscess and drainage. Status post having drainage of the abscess postprocedure, developed a small-bowel obstruction. Now patient is doing well. He did have a rash on ceftriaxone and currently now on meropenem. Would cont inue with meropenem and order CBC, SMA-18, sed rate, C-reactive protein and imaging with MRI intermit tently, and laboratory should be done at least once weekly. Colt Coronel MD cc: 350 TT: 08/04/2016 17:08:32 Confirmation # [id number] Dictation # [id number]
[2016-08-04] MEDS: DiphenhydrAMINE 12.5 mg/5 ml LIQ UD (5 ml) PO PRN (21:48)
[2016-08-05] MEDS: Albuterol-Ipratrop 3 mg / 0.5 (3 ml) UD IH SCH ×4 (01:28→20:29)
[2016-08-05] MEDS: Meropenem 1g/NS 100mL IVPB 1 GM/100 ML PIGGYBACK IVPB SCH ×3 (06:21→22:06)
[2016-08-05 07:15] LABS: BASO # 0.03 K/mm3 (0.0-2.0); BASO % 0.5 % (0.0-3.0); EOS # 0.2 (0.0-0.7); EOS % 4.2 % (1.5-5.0); GRAN # 3.17 (1.4-6.5); GRAN % 57.9 % (50.0-68.0); HEMOGLOBIN 11.4 gm/dL (14.0-18.0); LYMPH # 1.4 (1.2-3.4); LYMPH % 25.5 % (22.0-35.0); MEAN CORPUSCULAR HEMOGLOBIN 30.3 pg (25.0-35.0); MEAN CORPUSCULAR HGB CONC 33.3 g/dl (31.0-37.0); MEAN PLATELET VOLUME 11.5 fl (7.0-11.0); MONO # 0.7 (0.1-0.6); MONO % 11.9 % (1.0-6.0); PLATELET COUNT 201 10^3/uL (120.0-450.0); RBC 3.76 10^6/uL (3.5-6.1); RED CELL DISTRIBUTION WIDTH 14.4 % (11.5-14.5); WHITE BLOOD COUNT 5.5 10^3/ul (4.5-11.0)
[2016-08-05 07:21] LABS: INR 2.98 (0.93-1.08); PROTHROMBIN TIME 32.2 Seconds (9.9-11.8)
[2016-08-05 07:37] LABS: ALB/GLOB RATIO 0.9 (1.1-1.8); ALBUMIN 3.4 g/dL (3.0-4.8); ALT/SGPT 78 U/L (7-56); AST/SGOT 43 U/L (15-59); BLOOD UREA NITROGEN 11 mg/dL (7-21); CALCIUM 9.2 mg/dL (8.4-10.5); GFR AFRICAN-AMERICAN > 60; GFR NON-AFRICAN AMERICAN > 60
[2016-08-05] MEDS: Pantoprazole 40 mg EC Tab PO SCH (08:57)
--- NOTE | 2016-08-05 09:17 | CP.PCM.PN ---
<Keri Guzman - Last Filed: 08/05/16 09:12> Subjective - Date & Time of Evaluation Date of Evaluation: 08/05/16 Time of Evaluation: 09:12 - Subjective Subjective: HOSPITALIST PROGRESS NOTE Pt is seen and examined at bedside. No acute events overnight. Patient denies having any CP, SOB, REINA, N/V/D/C. Last BM was yesterday. Tolerating diet. Haque in place draining herb urine. Objective - Vital Signs/Intake and Output Vital Signs (last 24 hours): Temp Pulse Resp BP Pulse Ox 97.6 F 64 20 123/75 96 08/05/16 08:15 08/05/16 08:15 08/05/16 08:15 08/05/16 08:15 08/05/16 08:15 Intake and Output: 08/05/16 08/05/16 06:59 18:59 Intake Total 1020 Output Total 1350 Balance -330 - Medications Medications: Current Medications Albuterol/Ipratropium (Duoneb 3 Mg/0.5 Mg (3 Ml) Ud) 3 ml IH [id number] [facility] Last Admin: 08/05/16 07:32 Dose: 3 ml Ascorbic Acid (Vitamin C 500 Mg Tab) 500 mg PO DAILY [facility] Last Admin: 08/04/16 10:11 Dose: 500 mg Baclofen (Lioresal) 20 mg PO BID [facility] Last Admin: 08/04/16 21:48 Dose: 20 mg Bisacodyl (Dulcolax) 5 mg PO DAILY PRN PRN Reason: Constipation Diphenhydramine HCl (Benadryl) 25 mg PO HS PRN PRN Reason: Insomnia Last Admin: 08/04/16 21:48 Dose: 25 mg Meropenem 1g/NS 100mL IVPB (Meropenem 1g/Ns 100ml Ivpb) 1 gm in 100 mls @ 100 mls/hr IVPB Q8 DONAL PRN Reason: Protocol Stop: 08/28/16 22:01 Last Admin: 08/05/16 06:21 Dose: 100 mls/hr Lidocaine HCl (Lidocaine 2% Viscous) 15 ml PO Q2H PRN PRN Reason: Throat Pain Last Admin: 07/24/16 15:00 Dose: 15 ml Metoclopramide HCl (Reglan) 5 mg IVP Q6 PRN PRN Reason: Nausea/Vomiting Metoprolol Tartrate (Lopressor) 25 mg PO BID [facility] Last Admin: 08/04/16 17:09 Dose: 25 mg Miconazole Nitrate (Miconazole 2% Cream) 0 ea TOP BID [facility] Last Admin: 08/04/16 10:13 Dose: 1 applic Multivitamins/Minerals (Therapeutic-M Tab) 1 tab PO DAILY [facility] Last Admin: 08/04/16 10:11 Dose: 1 tab Nicotine (Nicoderm Cq) 1 patch TD DAILY [facility] Last Admin: 08/04/16 10:12 Dose: Not Given Ondansetron HCl (Zofran Inj) 4 mg IVP Q6H PRN PRN Reason: Nausea/Vomiting Pantoprazole Sodium (Protonix Ec Tab) 40 mg PO ACB [facility] Last Admin: 08/05/16 08:57 Dose: 40 mg Warfarin Sodium (Coumadin) 2 mg PO 1800 [facility] Zinc Sulfate (Zinc Sulfate 220 Mg Cap) 220 mg PO DAILY [facility] Last Admin: 08/04/16 10:11 Dose: 220 mg - Labs Labs: 08/05/16 06:30 08/05/16 06:30 PT 32.2 Seconds (9.9-11.8) H* 08/05/16 06:30 INR 2.98 (0.93-1.08) H 08/05/16 06:30 APTT 30.7 Seconds (23.7-30.8) 07/30/16 06:30 - Constitutional Appears: Non-toxic, No Acute Distress - Head Exam Head Exam: ATRAUMATIC - ENT Exam ENT Exam: Mucous Membranes Moist - Respiratory Exam Respiratory Exam: Rhonchi. absent: Rales, Wheezes - Cardiovascular Exam Cardiovascular Exam: REGULAR RHYTHM, +S1, +S2. absent: Gallop, Rubs, Murmur - GI/Abdominal Exam GI & Abdominal Exam: Distended, Soft, Normal Bowel Sounds. absent: Firm, Guarding, Rigid, Tenderness - Extremities Exam Extremities Exam: absent: Pedal Edema, Tenderness Additional comments: fasiculations noted - Neurological Exam Neurological Exam: Alert, Awake, Oriented x3 - Psychiatric Exam Psychiatric exam: Normal Affect, Normal Mood - Skin Skin Exam: Dry, Intact, Normal Color, Warm Assessment and Plan - Assessment and Plan (Free Text) Assessment: 51 year old male with no significant past medical history is s/p T2-T4 lamenectomy on 07/07/16 US of LE showed R LE DVT s/p IVC filter 1. 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 See report for full details - ID is following patient 2. 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 Boots in place - Pt has involuntary spasm of legs. - Baclofen 20 mg po BID - Will continue to monitor. 3. Neurogenic bowel vs. ileus - Full diet but will monitor closely - Continue bowel regimen of Reglan 10 mg IV ACHS, Dulcolax PO and RC PRN - C. diff 07/24 negative 5. Neurogenic bladder - Haque in place - Urology dr Iqbal is consulted - Will likely require suprapubic cath at some time in future 6. R LE DVT s/p IVC filter placed - Coumadin 2 mg PO tonight. Will adjust coumadin dose based on INR. - INR currently therapeutic. Will monitor INR daily. 7. Iron deficiency anemia - H&H is stable 8. multiple stage 2 pressure ulcer on sacrum and buttock - air mattress and continue to reposition q2H - multivit, zinv, vitamin C PO ordered - Wound care is consulted Prophylaxis - Protonix - coumadin Will get labs every other day. Case and plan was seen, reviewed, and discussed in detail with Dr Marc <Tutu Marc - Last Filed: 08/05/16 09:20> Objective - Vital Signs/Intake and Output Vital Signs (last 24 hours): Temp Pulse Resp BP Pulse Ox 97.6 F 64 20 123/75 96 08/05/16 08:15 08/05/16 08:15 08/05/16 08:15 08/05/16 08:15 08/05/16 08:15 Intake and Output: 08/05/16 08/05/16 06:59 18:59 Intake Total 1020 Output Total 1350 Balance -330 - Medications Medications: Current Medications Albuterol/Ipratropium (Duoneb 3 Mg/0.5 Mg (3 Ml) Ud) 3 ml IH [id number] [facility] Last Admin: 08/05/16 07:32 Dose: 3 ml Ascorbic Acid (Vitamin C 500 Mg Tab) 500 mg PO DAILY [facility] Last Admin: 08/04/16 10:11 Dose: 500 mg Baclofen (Lioresal) 20 mg PO BID [facility] Last Admin: 08/04/16 21:48 Dose: 20 mg Bisacodyl (Dulcolax) 5 mg PO DAILY PRN PRN Reason: Constipation Diphenhydramine HCl (Benadryl) 25 mg PO HS PRN PRN Reason: Insomnia Last Admin: 08/04/16 21:48 Dose: 25 mg Meropenem 1g/NS 100mL IVPB (Meropenem 1g/Ns 100ml Ivpb) 1 gm in 100 mls @ 100 mls/hr IVPB Q8 [facility] PRN Reason: Protocol Stop: 08/28/16 22:01 Last Admin: 08/05/16 06:21 Dose: 100 mls/hr Lidocaine HCl (Lidocaine 2% Viscous) 15 ml PO Q2H PRN PRN Reason: Throat Pain Last Admin: 07/24/16 15:00 Dose: 15 ml Metoclopramide HCl (Reglan) 5 mg IVP Q6 PRN PRN Reason: Nausea/Vomiting Metoprolol Tartrate (Lopressor) 25 mg PO BID [facility] Last Admin: 08/04/16 17:09 Dose: 25 mg Miconazole Nitrate (Miconazole 2% Cream) 0 ea TOP BID [facility] Last Admin: 08/04/16 10:13 Dose: 1 applic Multivitamins/Minerals (Therapeutic-M Tab) 1 tab PO DAILY [facility] Last Admin: 08/04/16 10:11 Dose: 1 tab Nicotine (Nicoderm Cq) 1 patch TD DAILY [facility] Last Admin: 08/04/16 10:12 Dose: Not Given Ondansetron HCl (Zofran Inj) 4 mg IVP Q6H PRN PRN Reason: Nausea/Vomiting Pantoprazole Sodium (Protonix Ec Tab) 40 mg PO ACB [facility] Last Admin: 08/05/16 08:57 Dose: 40 mg Warfarin Sodium (Coumadin) 2 mg PO 1800 [facility] Zinc Sulfate (Zinc Sulfate 220 Mg Cap) 220 mg PO DAILY [facility] Last Admin: 08/04/16 10:11 Dose: 220 mg - Labs Labs: 08/05/16 06:30 08/05/16 06:30 PT 32.2 Seconds (9.9-11.8) H* 08/05/16 06:30 INR 2.98 (0.93-1.08) H 08/05/16 06:30 APTT 30.7 Seconds (23.7-30.8) 07/30/16 06:30 Attending/Attestation - Attestation I have personally seen and examined this patient.: Yes I have fully participated in the care of the patient.: Yes I have reviewed all pertinent clinical information, including history, physical exam and plan: Yes Notes (Text): I have seen and examined the patient at bedside.This is a 51 year old male with history of substance abuse (snorts cocaine), tobacco, alcohol use who got admitted for evaluation of back pain and found to have epidural abscess T1-T5, osteomyelitis, urinary retention and acute RLE DVT s/p IVC filter on coumadin. He underwent emergent laminectomy and epidural abscess was drained on meropenem. He now has involuntary spasm of Lower extremities probably due to loss of cortical inhibition. Will continue baclofen 20 mg po bid. He has haque catheter for neurogenic bladder. Advised frequent turning to avoid pressure sores/air mattress /continue wound care. INR is high. Will decrease coumadin to 2 mg for now. Will check only INR tomorrow. There is no need for daily labs. Case discussed with case assembler/delinquency prevention social worker for discharge planning. Pending placement. Dr Tutu Marc
[2016-08-05] MEDS: Miconazole 2% Cream(30 gm) TOP SCH ×2 (10:16→18:08)
[2016-08-05] MEDS: Multivitamin With Minerals Tab PO SCH (10:17)
--- NOTE | 2016-08-05 19:39 | CP.PCM.PN ---
Subjective - Date & Time of Evaluation Date of Evaluation: 08/05/16 Time of Evaluation: 10:55 - Subjective Subjective: Comfortable in bed, afebrile, not in distress. Objective - Vital Signs/Intake and Output Vital Signs (last 24 hours): Temp Pulse Resp BP Pulse Ox 98.0 F 62 20 130/74 98 08/05/16 16:00 08/05/16 18:08 08/05/16 16:00 08/05/16 18:08 08/05/16 16:00 Intake and Output: 08/05/16 08/06/16 18:59 06:59 Intake Total 600 100 Output Total 600 Balance 0 100 - Medications Medications: Current Medications Albuterol/Ipratropium (Duoneb 3 Mg/0.5 Mg (3 Ml) Ud) 3 ml IH [id number] [facility] Last Admin: 08/05/16 13:52 Dose: 3 ml Ascorbic Acid (Vitamin C 500 Mg Tab) 500 mg PO DAILY [facility] Last Admin: 08/05/16 10:17 Dose: 500 mg Baclofen (Lioresal) 20 mg PO BID [facility] Last Admin: 08/05/16 18:08 Dose: 20 mg Bisacodyl (Dulcolax) 5 mg PO DAILY PRN PRN Reason: Constipation Diphenhydramine HCl (Benadryl) 25 mg PO HS PRN PRN Reason: Insomnia Last Admin: 08/04/16 21:48 Dose: 25 mg Meropenem 1g/NS 100mL IVPB (Meropenem 1g/Ns 100ml Ivpb) 1 gm in 100 mls @ 100 mls/hr IVPB Q8 DONAL PRN Reason: Protocol Stop: 08/28/16 22:01 Last Admin: 08/05/16 14:49 Dose: 100 mls/hr Lidocaine HCl (Lidocaine 2% Viscous) 15 ml PO Q2H PRN PRN Reason: Throat Pain Last Admin: 07/24/16 15:00 Dose: 15 ml Metoclopramide HCl (Reglan) 5 mg IVP Q6 PRN PRN Reason: Nausea/Vomiting Metoprolol Tartrate (Lopressor) 25 mg PO BID [facility] Last Admin: 08/05/16 18:08 Dose: 25 mg Miconazole Nitrate (Miconazole 2% Cream) 0 ea TOP BID [facility] Last Admin: 08/05/16 18:08 Dose: 1 applic Multivitamins/Minerals (Therapeutic-M Tab) 1 tab PO DAILY [facility] Last Admin: 08/05/16 10:17 Dose: 1 tab Nicotine (Nicoderm Cq) 1 patch TD DAILY [facility] Last Admin: 08/05/16 10:20 Dose: Not Given Ondansetron HCl (Zofran Inj) 4 mg IVP Q6H PRN PRN Reason: Nausea/Vomiting Pantoprazole Sodium (Protonix Ec Tab) 40 mg PO ACB [facility] Last Admin: 08/05/16 08:57 Dose: 40 mg Warfarin Sodium (Coumadin) 2 mg PO 1800 [facility] Last Admin: 08/05/16 18:08 Dose: 2 mg Zinc Sulfate (Zinc Sulfate 220 Mg Cap) 220 mg PO DAILY [facility] Last Admin: 08/05/16 10:17 Dose: 220 mg - Labs Labs: 08/05/16 06:30 08/05/16 06:30 PT 32.2 Seconds (9.9-11.8) H* 08/05/16 06:30 INR 2.98 (0.93-1.08) H 08/05/16 06:30 APTT 30.7 Seconds (23.7-30.8) 07/30/16 06:30 - Constitutional Appears: Non-toxic, No Acute Distress - Head Exam Head Exam: NORMAL INSPECTION - ENT Exam ENT Exam: Mucous Membranes Moist - Neck Exam Neck Exam: absent: Lymphadenopathy, Meningismus - Respiratory Exam Respiratory Exam: Decreased Breath Sounds - Cardiovascular Exam Cardiovascular Exam: +S1, +S2 - GI/Abdominal Exam GI & Abdominal Exam: Soft. 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 with associated cord compression and lower extremity paralysis S/P neurosurgery for abscess drainage and laminectomy POD #28 Partial small bowel obstruction, clinically improved significant smoking history alcohol abuse obesity with BMI 40 Plan continue Rocephin to complete 4-6 weeks of therapy Will continue to follow clinically
[2016-08-05] MEDS: DiphenhydrAMINE 12.5 mg/5 ml LIQ UD (5 ml) PO PRN (22:06)
[2016-08-06] MEDS: Albuterol-Ipratrop 3 mg / 0.5 (3 ml) UD IH SCH ×4 (01:12→21:05)
[2016-08-06] MEDS: Meropenem 1g/NS 100mL IVPB 1 GM/100 ML PIGGYBACK IVPB SCH ×3 (05:59→21:54)
[2016-08-06 07:29] LABS: INR 2.3 (0.93-1.08); PROTHROMBIN TIME 24.8 Seconds (9.9-11.8)
[2016-08-06] MEDS: Pantoprazole 40 mg EC Tab PO SCH (08:28)
[2016-08-06] MEDS: Multivitamin With Minerals Tab PO SCH (10:23)
[2016-08-06] MEDS: Miconazole 2% Cream(30 gm) TOP SCH ×2 (10:24→17:08)
--- NOTE | 2016-08-06 14:06 | CP.PCM.PN ---
<Tamara Mosqueda - Last Filed: 08/06/16 15:44> Subjective - Date & Time of Evaluation Date of Evaluation: 08/06/16 Time of Evaluation: 11:00 - Subjective Subjective: PGY-1 Medicine progress note Patient seen and examined at bedside. No acute distress. Nurse reports no acute events overnight. Patient denies having any CP, SOB, REINA, N/V. Patient reports cough but is using incentive spirometry. Nurse reports last BM was yesterday. Tolerating diet. Haque in place draining herb urine. Objective - Vital Signs/Intake and Output Vital Signs (last 24 hours): Temp Pulse Resp BP Pulse Ox 97.8 F 59 L 20 132/73 96 08/06/16 09:02 08/06/16 10:22 08/06/16 09:02 08/06/16 10:22 08/06/16 09:02 Intake and Output: 08/06/16 08/06/16 06:59 18:59 Intake Total 340 Output Total 550 Balance -210 - Medications Medications: Current Medications Albuterol/Ipratropium (Duoneb 3 Mg/0.5 Mg (3 Ml) Ud) 3 ml IH [id number] [facility] Last Admin: 08/06/16 13:38 Dose: 3 ml Ascorbic Acid (Vitamin C 500 Mg Tab) 500 mg PO DAILY [facility] Last Admin: 08/06/16 10:22 Dose: 500 mg Baclofen (Lioresal) 20 mg PO BID [facility] Last Admin: 08/06/16 10:22 Dose: 20 mg Bisacodyl (Dulcolax) 5 mg PO DAILY PRN PRN Reason: Constipation Diphenhydramine HCl (Benadryl) 25 mg PO HS PRN PRN Reason: Insomnia Last Admin: 08/05/16 22:06 Dose: 25 mg Meropenem 1g/NS 100mL IVPB (Meropenem 1g/Ns 100ml Ivpb) 1 gm in 100 mls @ 100 mls/hr IVPB Q8 DONAL PRN Reason: Protocol Stop: 08/28/16 22:01 Last Admin: 08/06/16 05:59 Dose: 100 mls/hr Lidocaine HCl (Lidocaine 2% Viscous) 15 ml PO Q2H PRN PRN Reason: Throat Pain Last Admin: 07/24/16 15:00 Dose: 15 ml Metoclopramide HCl (Reglan) 5 mg IVP Q6 PRN PRN Reason: Nausea/Vomiting Metoprolol Tartrate (Lopressor) 25 mg PO BID [facility] Last Admin: 08/06/16 10:22 Dose: 25 mg Miconazole Nitrate (Miconazole 2% Cream) 0 ea TOP BID [facility] Last Admin: 08/06/16 10:24 Dose: 1 applic Multivitamins/Minerals (Therapeutic-M Tab) 1 tab PO DAILY [facility] Last Admin: 08/06/16 10:23 Dose: 1 tab Nicotine (Nicoderm Cq) 1 patch TD DAILY [facility] Last Admin: 08/06/16 10:24 Dose: Not Given Ondansetron HCl (Zofran Inj) 4 mg IVP Q6H PRN PRN Reason: Nausea/Vomiting Pantoprazole Sodium (Protonix Ec Tab) 40 mg PO ACB [facility] Last Admin: 08/06/16 08:28 Dose: 40 mg Warfarin Sodium (Coumadin) 2 mg PO 1800 [facility] Last Admin: 08/05/16 18:08 Dose: 2 mg Zinc Sulfate (Zinc Sulfate 220 Mg Cap) 220 mg PO DAILY [facility] Last Admin: 08/06/16 10:22 Dose: 220 mg - Labs Labs: 08/05/16 06:30 08/05/16 06:30 PT 24.8 Seconds (9.9-11.8) H 08/06/16 06:00 INR 2.30 (0.93-1.08) H 08/06/16 06:00 APTT 30.7 Seconds (23.7-30.8) 07/30/16 06:30 - Constitutional Appears: Well, No Acute Distress - Head Exam Head Exam: ATRAUMATIC, NORMOCEPHALIC - Eye Exam Eye Exam: Normal appearance - ENT Exam ENT Exam: Mucous Membranes Moist - Respiratory Exam Respiratory Exam: Clear to Ausculation Bilateral, NORMAL BREATHING PATTERN. absent: Rales, Rhonchi, Wheezes, Respiratory Distress - Cardiovascular Exam Cardiovascular Exam: REGULAR RHYTHM, +S1, +S2. absent: Tachycardia, Murmur - GI/Abdominal Exam GI & Abdominal Exam: Soft, Normal Bowel Sounds. absent: Distended, Firm, Tenderness - Extremities Exam Additional comments: Paralysis in LE bilat, fasiculations noted - Neurological Exam Neurological Exam: Alert, Awake, Oriented x3 - Skin Skin Exam: Dry, Intact, Normal Color, Warm Assessment and Plan - Assessment and Plan (Free Text) Assessment: 51 year old male with no significant past medical history is s/p T2-T4 lamenectomy on 07/07/16 with paralysis in LE, US of LE showed R LE DVT s/p IVC filter Plan: 1. 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 See report for full details - ID is following 2. 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 Boots in place - Pt has involuntary spasm of legs. - Baclofen 20 mg po BID - Will continue to monitor. 3. R LE DVT s/p IVC filter placed - Coumadin 2 mg yesterday. - INR 2.3, Will continue current coumadin dose. - INR currently therapeutic - Will monitor INR daily 4. Neurogenic bowel vs. ileus - Full diet but will monitor closely - Continue bowel regimen of Reglan 10 mg IV ACHS, Dulcolax PO and RC PRN - C. diff 07/24 negative 5. Neurogenic bladder - Haque in place - Urology dr Iqbal is consulted - Will likely require suprapubic cath at some time in future 6. Iron deficiency anemia - H&H is stable 7. multiple stage 2 pressure ulcer on sacrum and buttock - air mattress and continue to reposition q2H - multivit, zinv, vitamin C PO ordered - Wound care is consulted Prophylaxis - GI ppx- Protonix - DVT ppx- coumadin Will get labs every other day. Case was seen, reviewed, and discussed with attending <Tutu Marc - Last Filed: 08/06/16 16:35> Objective - Vital Signs/Intake and Output Vital Signs (last 24 hours): Temp Pulse Resp BP Pulse Ox 97.8 F 59 L 20 132/73 96 08/06/16 09:02 08/06/16 10:22 08/06/16 09:02 08/06/16 10:22 08/06/16 09:02 Intake and Output: 08/06/16 08/06/16 06:59 18:59 Intake Total 340 420 Output Total 550 750 Balance -210 -330 - Medications Medications: Current Medications Albuterol/Ipratropium (Duoneb 3 Mg/0.5 Mg (3 Ml) Ud) 3 ml IH [id number] [facility] Last Admin: 08/06/16 13:38 Dose: 3 ml Ascorbic Acid (Vitamin C 500 Mg Tab) 500 mg PO DAILY [facility] Last Admin: 08/06/16 10:22 Dose: 500 mg Baclofen (Lioresal) 20 mg PO BID [facility] Last Admin: 08/06/16 10:22 Dose: 20 mg Bisacodyl (Dulcolax) 5 mg PO DAILY PRN PRN Reason: Constipation Diphenhydramine HCl (Benadryl) 25 mg PO HS PRN PRN Reason: Insomnia Last Admin: 08/05/16 22:06 Dose: 25 mg Meropenem 1g/NS 100mL IVPB (Meropenem 1g/Ns 100ml Ivpb) 1 gm in 100 mls @ 100 mls/hr IVPB Q8 DONAL PRN Reason: Protocol Stop: 08/28/16 22:01 Last Admin: 08/06/16 14:19 Dose: 100 mls/hr Lidocaine HCl (Lidocaine 2% Viscous) 15 ml PO Q2H PRN PRN Reason: Throat Pain Last Admin: 07/24/16 15:00 Dose: 15 ml Metoclopramide HCl (Reglan) 5 mg IVP Q6 PRN PRN Reason: Nausea/Vomiting Metoprolol Tartrate (Lopressor) 25 mg PO BID [facility] Last Admin: 08/06/16 10:22 Dose: 25 mg Miconazole Nitrate (Miconazole 2% Cream) 0 ea TOP BID [facility] Last Admin: 08/06/16 10:24 Dose: 1 applic Multivitamins/Minerals (Therapeutic-M Tab) 1 tab PO DAILY [facility] Last Admin: 08/06/16 10:23 Dose: 1 tab Nicotine (Nicoderm Cq) 1 patch TD DAILY [facility] Last Admin: 08/06/16 10:24 Dose: Not Given Ondansetron HCl (Zofran Inj) 4 mg IVP Q6H PRN PRN Reason: Nausea/Vomiting Pantoprazole Sodium (Protonix Ec Tab) 40 mg PO ACB [facility] Last Admin: 08/06/16 08:28 Dose: 40 mg Warfarin Sodium (Coumadin) 2 mg PO 1800 [facility] Last Admin: 08/05/16 18:08 Dose: 2 mg Zinc Sulfate (Zinc Sulfate 220 Mg Cap) 220 mg PO DAILY [facility] Last Admin: 08/06/16 10:22 Dose: 220 mg - Labs Labs: 08/05/16 06:30 08/05/16 06:30 PT 24.8 Seconds (9.9-11.8) H 08/06/16 06:00 INR 2.30 (0.93-1.08) H 08/06/16 06:00 APTT 30.7 Seconds (23.7-30.8) 07/30/16 06:30 Attending/Attestation - Attestation I have personally seen and examined this patient.: Yes I have fully participated in the care of the patient.: Yes I have reviewed all pertinent clinical information, including history, physical exam and plan: Yes Notes (Text): I have seen and examined the patient at bedside.This is a 51 year old male with history of substance abuse (snorts cocaine), tobacco, alcohol use who got admitted for evaluation of back pain and found to have epidural abscess T1-T5, osteomyelitis, urinary retention and acute RLE DVT s/p IVC filter on coumadin. He underwent emergent laminectomy and epidural abscess was drained on meropenem. He now has involuntary spasm of Lower extremities probably due to loss of cortical inhibition. Will continue baclofen 20 mg po bid. He has haque catheter for neurogenic bladder. Advised frequent turning to avoid pressure sores/air mattress /continue wound care. INR is high. Will adjust coumadin dose. No new events overnight. Case discussed with watch case polisher/hospital social worker for discharge planning. Pending placement. Dr Tutu Marc
--- NOTE | 2016-08-06 15:34 | CP.PCM.PN ---
Subjective - Date & Time of Evaluation Date of Evaluation: 08/06/16 Time of Evaluation: 10:35 - Subjective Subjective: Comfortable in bed, no new complaints, afebrile overnight. Objective - Vital Signs/Intake and Output Vital Signs (last 24 hours): Temp Pulse Resp BP Pulse Ox 97.8 F 59 L 20 132/73 96 08/06/16 09:02 08/06/16 10:22 08/06/16 09:02 08/06/16 10:22 08/06/16 09:02 Intake and Output: 08/06/16 08/06/16 06:59 18:59 Intake Total 340 420 Output Total 550 750 Balance -210 -330 - Medications Medications: Current Medications Albuterol/Ipratropium (Duoneb 3 Mg/0.5 Mg (3 Ml) Ud) 3 ml IH [id number] [facility] Last Admin: 08/06/16 13:38 Dose: 3 ml Ascorbic Acid (Vitamin C 500 Mg Tab) 500 mg PO DAILY [facility] Last Admin: 08/06/16 10:22 Dose: 500 mg Baclofen (Lioresal) 20 mg PO BID [facility] Last Admin: 08/06/16 10:22 Dose: 20 mg Bisacodyl (Dulcolax) 5 mg PO DAILY PRN PRN Reason: Constipation Diphenhydramine HCl (Benadryl) 25 mg PO HS PRN PRN Reason: Insomnia Last Admin: 08/05/16 22:06 Dose: 25 mg Meropenem 1g/NS 100mL IVPB (Meropenem 1g/Ns 100ml Ivpb) 1 gm in 100 mls @ 100 mls/hr IVPB Q8 DONAL PRN Reason: Protocol Stop: 08/28/16 22:01 Last Admin: 08/06/16 14:19 Dose: 100 mls/hr Lidocaine HCl (Lidocaine 2% Viscous) 15 ml PO Q2H PRN PRN Reason: Throat Pain Last Admin: 07/24/16 15:00 Dose: 15 ml Metoclopramide HCl (Reglan) 5 mg IVP Q6 PRN PRN Reason: Nausea/Vomiting Metoprolol Tartrate (Lopressor) 25 mg PO BID [facility] Last Admin: 08/06/16 10:22 Dose: 25 mg Miconazole Nitrate (Miconazole 2% Cream) 0 ea TOP BID [facility] Last Admin: 05/10/17 10:24 Dose: 1 applic Multivitamins/Minerals (Therapeutic-M Tab) 1 tab PO DAILY [facility] Last Admin: 08/06/16 10:23 Dose: 1 tab Nicotine (Nicoderm Cq) 1 patch TD DAILY [facility] Last Admin: 08/06/16 10:24 Dose: Not Given Ondansetron HCl (Zofran Inj) 4 mg IVP Q6H PRN PRN Reason: Nausea/Vomiting Pantoprazole Sodium (Protonix Ec Tab) 40 mg PO ACB [facility] Last Admin: 08/06/16 08:28 Dose: 40 mg Warfarin Sodium (Coumadin) 2 mg PO 1800 [facility] Last Admin: 08/05/16 18:08 Dose: 2 mg Zinc Sulfate (Zinc Sulfate 220 Mg Cap) 220 mg PO DAILY [facility] Last Admin: 08/06/16 10:22 Dose: 220 mg - Labs Labs: 08/05/16 06:30 08/05/16 06:30 PT 24.8 Seconds (9.9-11.8) H 08/06/16 06:00 INR 2.30 (0.93-1.08) H 08/06/16 06:00 APTT 30.7 Seconds (23.7-30.8) 07/30/16 06:30 - Constitutional Appears: Non-toxic, No Acute Distress - Head Exam Head Exam: NORMAL INSPECTION - Neck Exam Neck Exam: absent: Lymphadenopathy, Meningismus - Respiratory Exam Respiratory Exam: Decreased Breath Sounds - Cardiovascular Exam Cardiovascular Exam: +S1, +S2 - GI/Abdominal Exam GI & Abdominal Exam: Soft. 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 with associated cord compression and lower extremity paralysis S/P neurosurgery for abscess drainage and laminectomy POD #29 Partial small bowel obstruction, clinically improved significant smoking history alcohol abuse obesity with BMI 40 Plan continue Rocephin to complete 4-6 weeks of therapy Will continue to follow clinically; will check ESR and CRP since this should be taken weekly
[2016-08-07] MEDS: Albuterol-Ipratrop 3 mg / 0.5 (3 ml) UD IH SCH ×4 (02:30→20:16)
[2016-08-07 07:28] LABS: BASO # 0.03 K/mm3 (0.0-2.0); BASO % 0.4 % (0.0-3.0); EOS # 0.3 (0.0-0.7); EOS % 3.5 % (1.5-5.0); GRAN # 5.22 (1.4-6.5); GRAN % 66.7 % (50.0-68.0); HEMOGLOBIN 11.6 gm/dL (14.0-18.0); LYMPH # 1.5 (1.2-3.4); LYMPH % 19.3 % (22.0-35.0); MEAN CORPUSCULAR HEMOGLOBIN 29.8 pg (25.0-35.0); MEAN CORPUSCULAR HGB CONC 32.8 g/dl (31.0-37.0); MEAN PLATELET VOLUME 11.5 fl (7.0-11.0); MONO # 0.8 (0.1-0.6); MONO % 10.1 % (1.0-6.0); PLATELET COUNT 217 10^3/uL (120.0-450.0); RBC 3.89 10^6/uL (3.5-6.1); RED CELL DISTRIBUTION WIDTH 14.2 % (11.5-14.5); WHITE BLOOD COUNT 7.8 10^3/ul (4.5-11.0)
[2016-08-07 07:35] LABS: INR 1.8 (0.93-1.08); PROTHROMBIN TIME 19.4 Seconds (9.9-11.8)
[2016-08-07 07:43] LABS: ALB/GLOB RATIO 0.9 (1.1-1.8); ALBUMIN 3.6 g/dL (3.0-4.8); ALT/SGPT 66 U/L (7-56); AST/SGOT 41 U/L (15-59); BLOOD UREA NITROGEN 16 mg/dL (7-21); CALCIUM 9.3 mg/dL (8.4-10.5); GFR AFRICAN-AMERICAN > 60; GFR NON-AFRICAN AMERICAN > 60
[2016-08-07] MEDS: Pantoprazole 40 mg EC Tab PO SCH (09:07)
[2016-08-07] MEDS: Multivitamin With Minerals Tab PO SCH (09:07)
[2016-08-07] MEDS: Miconazole 2% Cream(30 gm) TOP SCH ×2 (09:07→17:25)
--- NOTE | 2016-08-07 11:33 | CP.PCM.PN ---
<Tamara Mosqueda - Last Filed: 08/07/16 12:50> Subjective - Date & Time of Evaluation Date of Evaluation: 08/07/16 Time of Evaluation: 11:31 - Subjective Subjective: PGY-1 Medicine progress note Patient seen and examined at bedside. No acute distress. Nurse reports no acute events overnight. Patient denies having any CP, SOB, REINA, N/V. Patient reports improvement in cough and continues to use incentive spirometry. Tolerating diet. Haque in place draining herb urine. Objective - Vital Signs/Intake and Output Vital Signs (last 24 hours): Temp Pulse Resp BP Pulse Ox 98.1 F 72 19 120/75 97 08/07/16 08:00 08/07/16 09:08 08/07/16 08:00 08/07/16 09:08 08/07/16 08:00 Intake and Output: 08/07/16 08/07/16 06:59 18:59 Intake Total 720 Output Total 750 Balance -30 - Medications Medications: Current Medications Albuterol/Ipratropium (Duoneb 3 Mg/0.5 Mg (3 Ml) Ud) 3 ml IH [id number] [facility] Last Admin: 08/07/16 07:22 Dose: 3 ml Ascorbic Acid (Vitamin C 500 Mg Tab) 500 mg PO DAILY [facility] Last Admin: 08/07/16 09:07 Dose: 500 mg Baclofen (Lioresal) 20 mg PO BID [facility] Last Admin: 08/07/16 09:07 Dose: 20 mg Bisacodyl (Dulcolax) 5 mg PO DAILY PRN PRN Reason: Constipation Diphenhydramine HCl (Benadryl) 25 mg PO HS PRN PRN Reason: Insomnia Last Admin: 08/05/16 22:06 Dose: 25 mg Meropenem 1g/NS 100mL IVPB (Meropenem 1g/Ns 100ml Ivpb) 1 gm in 100 mls @ 100 mls/hr IVPB Q8 DONAL PRN Reason: Protocol Stop: 08/11/16 22:59 Lidocaine HCl (Lidocaine 2% Viscous) 15 ml PO Q2H PRN PRN Reason: Throat Pain Last Admin: 07/24/16 15:00 Dose: 15 ml Metoclopramide HCl (Reglan) 5 mg IVP Q6 PRN PRN Reason: Nausea/Vomiting Metoprolol Tartrate (Lopressor) 25 mg PO BID [facility] Last Admin: 08/07/16 09:08 Dose: 25 mg Miconazole Nitrate (Miconazole 2% Cream) 0 ea TOP BID [facility] Last Admin: 08/07/16 09:07 Dose: 1 applic Multivitamins/Minerals (Therapeutic-M Tab) 1 tab PO DAILY [facility] Last Admin: 08/07/16 09:07 Dose: 1 tab Nicotine (Nicoderm Cq) 1 patch TD DAILY [facility] Last Admin: 08/07/16 09:07 Dose: Not Given Ondansetron HCl (Zofran Inj) 4 mg IVP Q6H PRN PRN Reason: Nausea/Vomiting Pantoprazole Sodium (Protonix Ec Tab) 40 mg PO ACB [facility] Last Admin: 08/07/16 09:07 Dose: 40 mg Warfarin Sodium (Coumadin) 4 mg PO 1800 [facility] Zinc Sulfate (Zinc Sulfate 220 Mg Cap) 220 mg PO DAILY [facility] Last Admin: 08/07/16 09:07 Dose: 220 mg - Labs Labs: 08/07/16 06:30 08/07/16 06:30 PT 19.4 Seconds (9.9-11.8) H 08/07/16 06:30 INR 1.80 (0.93-1.08) H 08/07/16 06:30 APTT 30.7 Seconds (23.7-30.8) 07/30/16 06:30 - Constitutional Appears: Well, No Acute Distress - Head Exam Head Exam: ATRAUMATIC, NORMOCEPHALIC - Eye Exam Eye Exam: Normal appearance - ENT Exam ENT Exam: Mucous Membranes Moist - Respiratory Exam Respiratory Exam: Clear to Ausculation Bilateral, NORMAL BREATHING PATTERN. absent: Rhonchi, Wheezes, Respiratory Distress - Cardiovascular Exam Cardiovascular Exam: REGULAR RHYTHM. absent: Tachycardia, Murmur - GI/Abdominal Exam GI & Abdominal Exam: Soft. absent: Distended, Firm, Guarding, Tenderness - Extremities Exam Additional comments: strength 5/5 upper extremities blateral, paralysis of bilateral lower extremities - Neurological Exam Neurological Exam: Alert, Awake, Oriented x3 - Skin Skin Exam: Dry, Intact, Normal Color, Warm Assessment and Plan - Assessment and Plan (Free Text) Assessment: 51 year old male with no significant past medical history is s/p T2-T4 lamenectomy on 07/07/16 with paralysis of LE, US of LE showed R LE DVT s/p IVC filter and warfarin. Plan: 1. 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 See report for full details - ID is following 2. 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 Boots in place - Pt has involuntary spasm of legs. - continue Baclofen 20 mg po BID - Will continue to monitor. 3. R LE DVT s/p IVC filter placed - Coumadin 2 mg yesterday. - INR 1.8 today - increase warfarin to 4mg daily - Will monitor INR daily 4. Neurogenic bowel vs. ileus - Full diet but will monitor closely - Continue bowel regimen of Reglan 10 mg IV ACHS, Dulcolax PO and RC PRN - C. diff 07/24 negative 5. Neurogenic bladder - Haque in place, draining herb urine - Urology dr Iqbal is consulted - Will likely require suprapubic cath at some time in future 6. Iron deficiency anemia - H&H is stable 7. multiple stage 2 pressure ulcer on sacrum and buttock - improving - air mattress and continue to reposition q2H - cont multivit, zinv, vitamin C PO - Wound care is consulted Prophylaxis - GI ppx- Protonix - DVT ppx- coumadin Will get labs every other day. Case was seen, reviewed, and discussed with attending <Tutu Marc - Last Filed: 08/07/16 14:35> Objective - Vital Signs/Intake and Output Vital Signs (last 24 hours): Temp Pulse Resp BP Pulse Ox 98.1 F 72 19 120/75 97 08/07/16 08:00 08/07/16 09:08 08/07/16 08:00 08/07/16 09:08 08/07/16 08:00 Intake and Output: 08/07/16 08/07/16 06:59 18:59 Intake Total 720 Output Total 750 Balance -30 - Medications Medications: Current Medications Albuterol/Ipratropium (Duoneb 3 Mg/0.5 Mg (3 Ml) Ud) 3 ml IH [id number] [facility] Last Admin: 08/07/16 13:28 Dose: 3 ml Ascorbic Acid (Vitamin C 500 Mg Tab) 500 mg PO DAILY [facility] Last Admin: 08/07/16 09:07 Dose: 500 mg Baclofen (Lioresal) 20 mg PO BID [facility] Last Admin: 08/07/16 09:07 Dose: 20 mg Bisacodyl (Dulcolax) 5 mg PO DAILY PRN PRN Reason: Constipation Diphenhydramine HCl (Benadryl) 25 mg PO HS PRN PRN Reason: Insomnia Last Admin: 08/05/16 22:06 Dose: 25 mg Meropenem 1g/NS 100mL IVPB (Meropenem 1g/Ns 100ml Ivpb) 1 gm in 100 mls @ 100 mls/hr IVPB Q8 DON[facility] PRN Reason: Protocol Stop: 08/11/16 22:59 Last Admin: 08/07/16 13:23 Dose: 100 mls/hr Lidocaine HCl (Lidocaine 2% Viscous) 15 ml PO Q2H PRN PRN Reason: Throat Pain Last Admin: 07/24/16 15:00 Dose: 15 ml Metoclopramide HCl (Reglan) 5 mg IVP Q6 PRN PRN Reason: Nausea/Vomiting Metoprolol Tartrate (Lopressor) 25 mg PO BID [facility] Last Admin: 08/07/16 09:08 Dose: 25 mg Miconazole Nitrate (Miconazole 2% Cream) 0 ea TOP BID [facility] Last Admin: 08/07/16 09:07 Dose: 1 applic Multivitamins/Minerals (Therapeutic-M Tab) 1 tab PO DAILY [facility] Last Admin: 08/07/16 09:07 Dose: 1 tab Nicotine (Nicoderm Cq) 1 patch TD DAILY [facility] Last Admin: 08/07/16 09:07 Dose: Not Given Ondansetron HCl (Zofran Inj) 4 mg IVP Q6H PRN PRN Reason: Nausea/Vomiting Pantoprazole Sodium (Protonix Ec Tab) 40 mg PO ACB [facility] Last Admin: 08/07/16 09:07 Dose: 40 mg Warfarin Sodium (Coumadin) 4 mg PO 1800 [facility] Zinc Sulfate (Zinc Sulfate 220 Mg Cap) 220 mg PO DAILY [facility] Last Admin: 08/07/16 09:07 Dose: 220 mg - Labs Labs: 08/07/16 06:30 08/07/16 06:30 PT 19.4 Seconds (9.9-11.8) H 08/07/16 06:30 INR 1.80 (0.93-1.08) H 08/07/16 06:30 APTT 30.7 Seconds (23.7-30.8) 07/30/16 06:30 Attending/Attestation - Attestation I have personally seen and examined this patient.: Yes I have fully participated in the care of the patient.: Yes I have reviewed all pertinent clinical information, including history, physical exam and plan: Yes Notes (Text): I have seen and examined the patient at bedside.This is a 51 year old male with history of substance abuse (snorts cocaine), tobacco, alcohol use who got admitted for evaluation of back pain and found to have epidural abscess T1-T5, osteomyelitis, urinary retention and acute RLE DVT s/p IVC filter on coumadin. He underwent emergent laminectomy and epidural abscess was drained on meropenem. He now has involuntary spasm of Lower extremities probably due to loss of cortical inhibition. Will continue baclofen 20 mg po bid. He has haque catheter for neurogenic bladder. Advised frequent turning to avoid pressure sores/air mattress /continue wound care. INR is low. Will increase coumadin to 4 mg dose. No new events overnight. Case discussed with watch caser/outreach and education social worker for discharge planning. Pending placement. Dr Tutu Marc
[2016-08-07] MEDS: Meropenem 1g/NS 100mL IVPB 1 GM/100 ML PIGGYBACK IVPB SCH ×2 (13:23→21:33)
--- NOTE | 2016-08-07 14:34 | PN ---
DATE: 08/07/2016 The patient is in bed, in no acute distress. PHYSICAL EXAMINATION: VITAL SIGNS: Temperature is 98, blood pressure is 118/70, respiratory rate of 18. HEENT: Unremarkable. NECK: Supple. LUNGS: Have decreased breath sounds. HEART: Normal S1, S2. ABDOMEN: Soft, nontender. LABORATORY DATA: Reveals a white count of 7.8, hemoglobin of 11. Review of the orders reveals the p atient to be on meropenem. ASSESSMENT AND PLAN: This is a 51-year-old male who is admitted with an epidural abscess and had a l aminectomy which was positive for Streptococcus pneumoniae and developed an ALLERGY TO CEFTRIAXONE. Currently on meropenem. I recommend a weekly CBC, SMA-18, sed rate, C-reactive protein. The patient has been in the hospital for over a month. Will continue meropenem. Colt Coronel MD cc: [phone] TT: 08/07/2016 14:34:26 Confirmation # [id number] Dictation # [id number] mn
[2016-08-07] MEDS: DiphenhydrAMINE 12.5 mg/5 ml LIQ UD (5 ml) PO PRN (21:33)
[2016-08-08] MEDS: Albuterol-Ipratrop 3 mg / 0.5 (3 ml) UD IH SCH ×4 (01:17→20:33)
[2016-08-08] MEDS: Meropenem 1g/NS 100mL IVPB 1 GM/100 ML PIGGYBACK IVPB SCH ×3 (05:59→21:28)
[2016-08-08] MEDS: Pantoprazole 40 mg EC Tab PO SCH (08:25)
[2016-08-08] MEDS: Miconazole 2% Cream(30 gm) TOP SCH ×2 (10:11→17:11)
[2016-08-08] MEDS: Multivitamin With Minerals Tab PO SCH (10:17)
--- NOTE | 2016-08-08 10:50 | CP.PCM.PN ---
<Keri Guzman - Last Filed: 08/08/16 13:03> Subjective - Date & Time of Evaluation Date of Evaluation: 08/08/16 Time of Evaluation: 10:47 - Subjective Subjective: hOSPITALIST PROGRESS NOTE Patient is seen and examined at bedside. No acute events overnight. Patient states that he is having regular bowel movement and is tolerating solid foods. Patient states that he continues to have fasciculation in his lower extremities and in his abdomen. Otherwise, denies having any CP, SOB, REINA, N/V, F/C. Objective - Vital Signs/Intake and Output Vital Signs (last 24 hours): Temp Pulse Resp BP Pulse Ox 98.0 F 60 18 130/80 98 08/08/16 07:30 08/08/16 10:16 08/08/16 07:30 08/08/16 10:16 08/08/16 07:30 Intake and Output: 08/08/16 08/08/16 06:59 18:59 Intake Total 840 Output Total 1800 Balance -960 - Medications Medications: Current Medications Albuterol/Ipratropium (Duoneb 3 Mg/0.5 Mg (3 Ml) Ud) 3 ml IH [id number] [facility] Last Admin: 08/08/16 07:28 Dose: 3 ml Ascorbic Acid (Vitamin C 500 Mg Tab) 500 mg PO DAILY DON[facility] Last Admin: 08/08/16 10:17 Dose: 500 mg Baclofen (Lioresal) 20 mg PO BID [facility] Last Admin: 08/08/16 10:16 Dose: 20 mg Bisacodyl (Dulcolax) 5 mg PO DAILY PRN PRN Reason: Constipation Diphenhydramine HCl (Benadryl) 25 mg PO HS PRN PRN Reason: Insomnia Last Admin: 08/07/16 21:33 Dose: 25 mg Meropenem 1g/NS 100mL IVPB (Meropenem 1g/Ns 100ml Ivpb) 1 gm in 100 mls @ 100 mls/hr IVPB Q8 DONAL PRN Reason: Protocol Stop: 08/11/16 22:59 Last Admin: 08/08/16 05:59 Dose: 100 mls/hr Lidocaine HCl (Lidocaine 2% Viscous) 15 ml PO Q2H PRN PRN Reason: Throat Pain Last Admin: 07/24/16 15:00 Dose: 15 ml Metoclopramide HCl (Reglan) 5 mg IVP Q6 PRN PRN Reason: Nausea/Vomiting Metoprolol Tartrate (Lopressor) 25 mg PO BID [facility] Last Admin: 08/08/16 10:16 Dose: 25 mg Miconazole Nitrate (Miconazole 2% Cream) 0 ea TOP BID [facility] Last Admin: 08/07/16 17:25 Dose: 1 applic Multivitamins/Minerals (Therapeutic-M Tab) 1 tab PO DAILY [facility] Last Admin: 08/08/16 10:17 Dose: 1 tab Nicotine (Nicoderm Cq) 1 patch TD DAILY [facility] Last Admin: 08/08/16 10:17 Dose: Not Given Ondansetron HCl (Zofran Inj) 4 mg IVP Q6H PRN PRN Reason: Nausea/Vomiting Pantoprazole Sodium (Protonix Ec Tab) 40 mg PO ACB [facility] Last Admin: 08/08/16 08:25 Dose: 40 mg Warfarin Sodium (Coumadin) 4 mg PO 1800 [facility] Last Admin: 08/07/16 17:25 Dose: 4 mg Zinc Sulfate (Zinc Sulfate 220 Mg Cap) 220 mg PO DAILY [facility] Last Admin: 08/08/16 10:16 Dose: 220 mg - Labs Labs: 08/07/16 06:30 08/07/16 06:30 PT 19.4 Seconds (9.9-11.8) H 08/07/16 06:30 INR 1.80 (0.93-1.08) H 08/07/16 06:30 APTT 30.7 Seconds (23.7-30.8) 07/30/16 06:30 - Constitutional Appears: Non-toxic, No Acute Distress - Head Exam Head Exam: ATRAUMATIC - ENT Exam ENT Exam: Mucous Membranes Moist - Respiratory Exam Respiratory Exam: Clear to Ausculation Bilateral. absent: Rales, Rhonchi, Wheezes - Cardiovascular Exam Cardiovascular Exam: REGULAR RHYTHM, +S1, +S2. absent: Gallop, Rubs, Murmur - GI/Abdominal Exam GI & Abdominal Exam: Distended, Soft. 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 Plan: 1. 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 Boots in place - Pt has involuntary spasm of legs. - continue Baclofen 20 mg po BID. - Will continue to monitor. 3. R LE DVT s/p IVC filter placed - Coumadin 2 mg yesterday. - INR 1.8 today - increase warfarin to 4mg daily - Will monitor INR daily 4. Neurogenic bowel vs. ileus - Full diet but will monitor closely - Continue bowel regimen of Reglan 10 mg IV ACHS, Dulcolax PO and RC PRN - C. diff 07/24 negative 5. Neurogenic bladder - Haque in place, draining herb urine 6. Iron deficiency anemia - H&H is stable 7. multiple stage 2 pressure ulcer on sacrum and buttock - improving - air mattress and continue to reposition q2H - cont multivit, zinv, vitamin C PO - Wound care is consulted Prophylaxis - GI ppx- Protonix - DVT ppx- coumadin Will get labs every other day. Case was seen, reviewed, and discussed with attending <Tutu Marc - Last Filed: 08/08/16 16:28> Objective - Vital Signs/Intake and Output Vital Signs (last 24 hours): Temp Pulse Resp BP Pulse Ox 98.0 F 60 18 130/80 98 08/08/16 07:30 08/08/16 10:16 08/08/16 07:30 08/08/16 10:16 08/08/16 07:30 Intake and Output: 08/08/16 08/08/16 06:59 18:59 Intake Total 840 Output Total 1800 400 Balance -960 -400 - Medications Medications: Current Medications Albuterol/Ipratropium (Duoneb 3 Mg/0.5 Mg (3 Ml) Ud) 3 ml IH [id number] [facility] Last Admin: 08/08/16 13:33 Dose: 3 ml Ascorbic Acid (Vitamin C 500 Mg Tab) 500 mg PO DAILY [facility] Last Admin: 08/08/16 10:17 Dose: 500 mg Baclofen (Lioresal) 20 mg PO BID [facility] Last Admin: 08/08/16 10:16 Dose: 20 mg Bisacodyl (Dulcolax) 5 mg PO DAILY PRN PRN Reason: Constipation Diphenhydramine HCl (Benadryl) 25 mg PO HS PRN PRN Reason: Insomnia Last Admin: 08/07/16 21:33 Dose: 25 mg Meropenem 1g/NS 100mL IVPB (Meropenem 1g/Ns 100ml Ivpb) 1 gm in 100 mls @ 100 mls/hr IVPB Q8 DONAL PRN Reason: Protocol Stop: 08/11/16 22:59 Last Admin: 08/08/16 13:43 Dose: 100 mls/hr Metoclopramide HCl (Reglan) 5 mg IVP Q6 PRN PRN Reason: Nausea/Vomiting Metoprolol Tartrate (Lopressor) 25 mg PO BID [facility] Last Admin: 08/08/16 10:16 Dose: 25 mg Miconazole Nitrate (Miconazole 2% Cream) 0 ea TOP BID [facility] Last Admin: 08/07/16 17:25 Dose: 1 applic Multivitamins/Minerals (Therapeutic-M Tab) 1 tab PO DAILY [facility] Last Admin: 08/08/16 10:17 Dose: 1 tab Nicotine (Nicoderm Cq) 1 patch TD DAILY [facility] Last Admin: 08/08/16 10:17 Dose: Not Given Ondansetron HCl (Zofran Inj) 4 mg IVP Q6H PRN PRN Reason: Nausea/Vomiting Pantoprazole Sodium (Protonix Ec Tab) 40 mg PO ACB [facility] Last Admin: 08/08/16 08:25 Dose: 40 mg Warfarin Sodium (Coumadin) 7.5 mg PO 1800 [facility] Zinc Sulfate (Zinc Sulfate 220 Mg Cap) 220 mg PO DAILY [facility] Last Admin: 08/08/16 10:16 Dose: 220 mg - Labs Labs: 08/07/16 06:30 08/07/16 06:30 PT 16.1 Seconds (9.9-11.8) H 08/08/16 11:20 INR 1.49 (0.93-1.08) H 08/08/16 11:20 APTT 30.7 Seconds (23.7-30.8) 07/30/16 06:30 Attending/Attestation - Attestation I have personally seen and examined this patient.: Yes I have fully participated in the care of the patient.: Yes I have reviewed all pertinent clinical information, including history, physical exam and plan: Yes Notes (Text): I have seen and examined the patient at bedside.This is a 51 year old male with history of substance abuse (snorts cocaine), tobacco, alcohol use who got admitted for evaluation of back pain and found to have epidural abscess T1-T5, osteomyelitis, urinary retention and acute RLE DVT s/p IVC filter on coumadin. He underwent emergent laminectomy and epidural abscess was drained on meropenem. He has involuntary spasm of Lower extremities probably due to loss of cortical inhibition. Will continue baclofen 20 mg po bid. He has haque catheter for neurogenic bladder. Advised frequent turning to avoid pressure sores/air mattress /continue wound care. INR is low. Will increase coumadin to 7.5 mg dose. There are new events overnight. Case discussed with case management social worker/social economist for discharge planning. Pending placement. Dr Tutu Marc
[2016-08-08 11:56] LABS: INR 1.49 (0.93-1.08); PROTHROMBIN TIME 16.1 Seconds (9.9-11.8)
[2016-08-08] MEDS: DiphenhydrAMINE 12.5 mg/5 ml LIQ UD (5 ml) PO PRN (21:29)
--- NOTE | 2016-08-08 22:14 | PN ---
DATE: 08/08/2016 The patient is in bed in no acute distress, nontoxic. PHYSICAL EXAMINATION: VITAL SIGNS: Temperature is 98, blood pressure is 112/70, respiratory rate of 16. HEENT: Unremarkable. NECK: Supple. LUNGS: Decreased breath sounds. HEART: Normal S1, S2. ABDOMEN: Soft, nontender. LABORATORY DATA: Reveals the SED rate is down to 50. White count is 7.8. C-reactive protein is 7.9 6. ASSESSMENT AND PLAN: This is a 51-year-old male who was admitted with epidural abscess and had a quintana inectomy and is positive for Streptococcus pneumonia from the abscess, who developed an ALLERGY TO CE FTRIAXONE. Currently on meropenem. Would continue the meropenem therapy with a weekly CBC, SMA-18, SED rate and C-reactive protein. His HIV is negative. Should have a multiple myeloma workup. Colt Coronel MD cc: [id number] TT: 08/08/2016 22:12:51 Confirmation # [id number] Dictation # [id number] dn
[2016-08-09] MEDS: Albuterol-Ipratrop 3 mg / 0.5 (3 ml) UD IH SCH ×4 (01:30→21:19)
[2016-08-09] MEDS: Meropenem 1g/NS 100mL IVPB 1 GM/100 ML PIGGYBACK IVPB SCH ×3 (06:00→21:46)
[2016-08-09 08:19] LABS: BASO # 0.04 K/mm3 (0.0-2.0); BASO % 0.6 % (0.0-3.0); EOS # 0.2 (0.0-0.7); EOS % 2.7 % (1.5-5.0); GRAN % 70.7 % (50.0-68.0); HEMOGLOBIN 11.9 gm/dL (14.0-18.0); LYMPH # 1.1 (1.2-3.4); LYMPH % 17.7 % (22.0-35.0); MEAN CORPUSCULAR HEMOGLOBIN 29.7 pg (25.0-35.0); MEAN PLATELET VOLUME 11.6 fl (7.0-11.0); MONO # 0.5 (0.1-0.6); MONO % 8.3 % (1.0-6.0); PLATELET COUNT 206 10^3/uL (120.0-450.0); RBC 4.01 10^6/uL (3.5-6.1); RED CELL DISTRIBUTION WIDTH 13.9 % (11.5-14.5); WHITE BLOOD COUNT 6.4 10^3/ul (4.5-11.0)
[2016-08-09 08:29] LABS: INR 1.68 (0.93-1.08); PROTHROMBIN TIME 18.1 Seconds (9.9-11.8)
[2016-08-09 08:32] LABS: BLOOD UREA NITROGEN 19 mg/dL (7-21); CALCIUM 9.5 mg/dL (8.4-10.5); GFR AFRICAN-AMERICAN > 60; GFR NON-AFRICAN AMERICAN > 60
[2016-08-09] MEDS: Pantoprazole 40 mg EC Tab PO SCH (09:52)
[2016-08-09] MEDS: Miconazole 2% Cream(30 gm) TOP SCH ×2 (09:52→17:31)
[2016-08-09] MEDS: Multivitamin With Minerals Tab PO SCH (09:52)
--- NOTE | 2016-08-09 11:11 | RAD ---
PROCEDURE: CHEST RADIOGRAPH, 1 VIEW HISTORY: wheezing on exam COMPARISON: 07/26/2016 FINDINGS: LUNGS: No focal airspace opacity. Mild hilar enlargement. PLEURA: No pneumothorax or pleural fluid seen. CARDIOVASCULAR: Stable. OSSEOUS STRUCTURES: The osseous structures demonstrate degenerative changes. VISUALIZED UPPER ABDOMEN: Upper abdomen is suboptimally evaluated. OTHER FINDINGS: Surgical eileen overlying the projection of the cervical spine. IMPRESSION: No focal airspace opacity. Mild hilar enlargement, stable.No significant interval change.
--- NOTE | 2016-08-09 13:24 | PN ---
DATE: 08/09/2016 PHYSICAL EXAMINATION: VITAL SIGNS: Temperature is 97, blood pressure is 120/80, respiratory rate of 18, heart rate of 60. HEENT: Unremarkable. NECK: Supple. LUNGS: Have decreased breath sounds. HEART: Normal S1, S2. ABDOMEN: Soft, nontender, no organomegaly, no rebound, no guarding, no masses. LABORATORY DATA: Reveals a white count of 6.4, hemoglobin of 11. Sed rate is 50. Chemistries revea ls the BUN of 19, creatinine of 0.6. Chest x-ray shows no focal airspace opacity. ASSESSMENT AND PLAN: This is a 51-year-old male who was admitted with epidural abscess and a laminec tito, positive strep pneumonia, abscess, developed AN ALLERGY TO CEFTRIAXONE and currently on meropen em. We will follow with you. Colt Coronel MD cc: 350 TT: 08/09/2016 13:23:26 Confirmation # [id number] Dictation # [id number] cn
--- NOTE | 2016-08-09 21:43 | CP.PCM.PN ---
<McmullenEnrrique - Last Filed: 08/09/16 21:38> Subjective - Date & Time of Evaluation Date of Evaluation: 08/09/16 Time of Evaluation: 09:50 - Subjective Subjective: HOSPITALIST PROGRESS NOTE Patient is seen and examined at bedside. No acute events overnight. Pt in a good mood and states that he is having regular bowel movement and is tolerating solid foods. He is also using the workout bar and working with PT. He denies having any CP, SOB, REINA, N/V, F/C. Objective - Vital Signs/Intake and Output Vital Signs (last 24 hours): Temp Pulse Resp BP Pulse Ox 98.1 F 61 20 123/73 97 08/09/16 16:00 08/09/16 16:00 08/09/16 16:00 08/09/16 16:00 08/09/16 16:00 Intake and Output: 08/09/16 08/10/16 18:59 06:59 Intake Total 480 Output Total 400 Balance 80 - Medications Medications: Current Medications Albuterol/Ipratropium (Duoneb 3 Mg/0.5 Mg (3 Ml) Ud) 3 ml IH [id number] [facility] Last Admin: 08/09/16 21:19 Dose: 3 ml Ascorbic Acid (Vitamin C 500 Mg Tab) 500 mg PO DAILY [facility] Last Admin: 08/09/16 09:52 Dose: 500 mg Baclofen (Lioresal) 20 mg PO BID [facility] Last Admin: 08/09/16 17:30 Dose: 20 mg Bisacodyl (Dulcolax) 5 mg PO DAILY PRN PRN Reason: Constipation Diphenhydramine HCl (Benadryl) 25 mg PO HS PRN PRN Reason: Insomnia Last Admin: 08/08/16 21:29 Dose: 25 mg Meropenem 1g/NS 100mL IVPB (Meropenem 1g/Ns 100ml Ivpb) 1 gm in 100 mls @ 100 mls/hr IVPB Q8 DONAL PRN Reason: Protocol Stop: 08/11/16 22:59 Last Admin: 08/09/16 13:05 Dose: 100 mls/hr Metoclopramide HCl (Reglan) 5 mg IVP Q6 PRN PRN Reason: Nausea/Vomiting Metoprolol Tartrate (Lopressor) 25 mg PO BID [facility] Last Admin: 08/09/16 17:30 Dose: 25 mg Miconazole Nitrate (Miconazole 2% Cream) 0 ea TOP BID [facility] Last Admin: 08/09/16 17:31 Dose: 1 applic Multivitamins/Minerals (Therapeutic-M Tab) 1 tab PO DAILY [facility] Last Admin: 08/09/16 09:52 Dose: 1 tab Nicotine (Nicoderm Cq) 1 patch TD DAILY [facility] Last Admin: 08/09/16 10:00 Dose: Not Given Ondansetron HCl (Zofran Inj) 4 mg IVP Q6H PRN PRN Reason: Nausea/Vomiting Pantoprazole Sodium (Protonix Ec Tab) 40 mg PO ACB [facility] Last Admin: 08/09/16 09:52 Dose: 40 mg Warfarin Sodium (Coumadin) 7.5 mg PO 1800 [facility] Last Admin: 08/09/16 17:30 Dose: 7.5 mg Zinc Sulfate (Zinc Sulfate 220 Mg Cap) 220 mg PO DAILY [facility] Last Admin: 08/09/16 09:52 Dose: 220 mg - Labs Labs: 08/09/16 08:11 08/09/16 08:11 PT 18.1 Seconds (9.9-11.8) H 08/09/16 08:11 INR 1.68 (0.93-1.08) H 08/09/16 08:11 APTT 30.7 Seconds (23.7-30.8) 07/30/16 06:30 - Constitutional Appears: Non-toxic, No Acute Distress - Head Exam Head Exam: ATRAUMATIC - ENT Exam ENT Exam: Mucous Membranes Moist - Respiratory Exam Respiratory Exam: Clear to Ausculation Bilateral. absent: Rales, Rhonchi, Wheezes - Cardiovascular Exam Cardiovascular Exam: REGULAR RHYTHM, +S1, +S2. absent: Gallop, Rubs, Murmur - GI/Abdominal Exam GI & Abdominal Exam: Distended, Soft. 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 Plan: 1. 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 Coronel 2. 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 Boots in place - Pt has involuntary spasm of legs. - continue Baclofen 20 mg po BID. - Will continue to monitor. 3. R LE DVT s/p IVC filter placed - Coumadin 2 mg yesterday. - INR 1.49 and downtrending - increased warfarin to 7.5 mg daily - Will monitor INR daily 4. Neurogenic bowel vs. ileus - Full diet but will monitor closely - Continue bowel regimen of Reglan 10 mg IV ACHS, Dulcolax PO and RC PRN - C. diff 07/24 negative 5. Neurogenic bladder - Haque in place, draining herb urine 6. Iron deficiency anemia - H&H is stable 7. multiple stage 2 pressure ulcer on sacrum and buttock - improving - air mattress and continue to reposition q2H - cont multivit, zinv, vitamin C PO - Wound care is following Prophylaxis - GI ppx- Protonix - DVT ppx- coumadin Will get labs every other day. Case was seen, reviewed, and discussed with attending <Tutu Marc - Last Filed: 08/10/16 14:45> Objective - Vital Signs/Intake and Output Vital Signs (last 24 hours): Temp Pulse Resp BP Pulse Ox 98.2 F 66 18 122/80 99 08/10/16 08:00 08/10/16 10:01 08/10/16 08:00 08/10/16 10:01 08/10/16 08:00 Intake and Output: 08/10/16 08/10/16 06:59 18:59 Intake Total 990 480 Output Total 600 350 Balance 390 130 - Medications Medications: Current Medications Albuterol/Ipratropium (Duoneb 3 Mg/0.5 Mg (3 Ml) Ud) 3 ml IH [id number] [facility] Last Admin: 08/10/16 14:16 Dose: 3 ml Ascorbic Acid (Vitamin C 500 Mg Tab) 500 mg PO DAILY [facility] Last Admin: 08/10/16 10:01 Dose: 500 mg Baclofen (Lioresal) 20 mg PO BID [facility] Last Admin: 08/10/16 10:01 Dose: 20 mg Bisacodyl (Dulcolax) 5 mg PO DAILY PRN PRN Reason: Constipation Diphenhydramine HCl (Benadryl) 25 mg PO HS PRN PRN Reason: Insomnia Last Admin: 08/09/16 21:46 Dose: 25 mg Meropenem 1g/NS 100mL IVPB (Meropenem 1g/Ns 100ml Ivpb) 1 gm in 100 mls @ 100 mls/hr IVPB Q8 DONAL PRN Reason: Protocol Stop: 08/11/16 22:59 Last Admin: 08/10/16 13:39 Dose: 100 mls/hr Metoclopramide HCl (Reglan) 5 mg IVP Q6 PRN PRN Reason: Nausea/Vomiting Metoprolol Tartrate (Lopressor) 25 mg PO BID [facility] Last Admin: 08/10/16 10:01 Dose: 25 mg Miconazole Nitrate (Miconazole 2% Cream) 0 ea TOP BID [facility] Last Admin: 08/10/16 10:02 Dose: 1 applic Multivitamins/Minerals (Therapeutic-M Tab) 1 tab PO DAILY [facility] Last Admin: 08/10/16 10:01 Dose: 1 tab Nicotine (Nicoderm Cq) 1 patch TD DAILY [facility] Last Admin: 08/10/16 10:02 Dose: Not Given Ondansetron HCl (Zofran Inj) 4 mg IVP Q6H PRN PRN Reason: Nausea/Vomiting Pantoprazole Sodium (Protonix Ec Tab) 40 mg PO ACB [facility] Last Admin: 08/10/16 10:01 Dose: 40 mg Warfarin Sodium (Coumadin) 7.5 mg PO 1800 [facility] Last Admin: 08/09/16 17:30 Dose: 7.5 mg Zinc Sulfate (Zinc Sulfate 220 Mg Cap) 220 mg PO DAILY [facility] Last Admin: 08/10/16 10:01 Dose: 220 mg - Labs Labs: 08/10/16 07:30 08/10/16 07:30 PT 19.2 Seconds (9.9-11.8) H 08/10/16 07:30 INR 1.78 (0.93-1.08) H 08/10/16 07:30 APTT 30.7 Seconds (23.7-30.8) 07/30/16 06:30 Attending/Attestation - Attestation I have personally seen and examined this patient.: Yes I have fully participated in the care of the patient.: Yes I have reviewed all pertinent clinical information, including history, physical exam and plan: Yes Notes (Text): I have seen and examined the patient at bedside.This is a 51 year old male with history of substance abuse (snorts cocaine), tobacco, alcohol use who got admitted for evaluation of back pain and found to have epidural abscess T1-T5, osteomyelitis, urinary retention and acute RLE DVT s/p IVC filter on coumadin. He underwent emergent laminectomy and epidural abscess was drained. He remains on meropenem. He has involuntary spasm of Lower extremities probably due to loss of cortical inhibition. Will discuss with neurologist. For now, continue baclofen 20 mg po bid. He has haque catheter for neurogenic bladder. Advised frequent turning to avoid pressure sores/air mattress /continue wound care. As per nurses, wound are getting better. INR is low. Will increase coumadin to 10 mg today. Pending placement. Dr Tutu Marc
[2016-08-09] MEDS: DiphenhydrAMINE 12.5 mg/5 ml LIQ UD (5 ml) PO PRN (21:46)
[2016-08-10] MEDS: Albuterol-Ipratrop 3 mg / 0.5 (3 ml) UD IH SCH ×4 (02:49→21:58)
[2016-08-10] MEDS: Meropenem 1g/NS 100mL IVPB 1 GM/100 ML PIGGYBACK IVPB SCH ×3 (07:20→22:07)
[2016-08-10 08:20] LABS: INR 1.78 (0.93-1.08); PROTHROMBIN TIME 19.2 Seconds (9.9-11.8)
[2016-08-10 08:32] LABS: BASO # 0.03 K/mm3 (0.0-2.0); BASO % 0.4 % (0.0-3.0); EOS # 0.3 (0.0-0.7); EOS % 3.7 % (1.5-5.0); GRAN # 4.37 (1.4-6.5); GRAN % 64.3 % (50.0-68.0); HEMOGLOBIN 11.9 gm/dL (14.0-18.0); LYMPH # 1.6 (1.2-3.4); LYMPH % 23.1 % (22.0-35.0); MEAN CORPUSCULAR HEMOGLOBIN 29.6 pg (25.0-35.0); MEAN CORPUSCULAR HGB CONC 32.9 g/dl (31.0-37.0); MEAN PLATELET VOLUME 11.8 fl (7.0-11.0); MONO # 0.6 (0.1-0.6); MONO % 8.5 % (1.0-6.0); PLATELET COUNT 207 10^3/uL (120.0-450.0); RBC 4.02 10^6/uL (3.5-6.1); RED CELL DISTRIBUTION WIDTH 13.9 % (11.5-14.5); WHITE BLOOD COUNT 6.8 10^3/ul (4.5-11.0)
[2016-08-10 08:35] LABS: BLOOD UREA NITROGEN 19 mg/dL (7-21); CALCIUM 9.6 mg/dL (8.4-10.5); GFR AFRICAN-AMERICAN > 60; GFR NON-AFRICAN AMERICAN > 60
--- NOTE | 2016-08-10 09:56 | PN ---
DATE: 08/10/2016 The patient is in bed in no acute distress. PHYSICAL EXAMINATION: VITAL SIGNS: Temperature is 98. Blood pressure is 120/80, respiratory rate of 18. HEENT: Unremarkable. NECK: Supple. LUNGS: Have decreased breath sounds. HEART: Normal S1, S2. ABDOMEN: Soft, nontender. LABORATORY EXAMINATION: Reveals the patient's white count is 6.8, hemoglobin 11, platelets of 207. Chemistries reveal the BUN of 19, creatinine of 0.6. Urinalysis is noted. Microbiology is noted. Review of orders reveals the patient to be on meropenem. ASSESSMENT AND PLAN: This is a 51-year-old male who was admitted with epidural abscess, laminectomy and strep pneumonia from the OR culture, and abscess, which was drained, had developed AN ALLERGY TO CEFTRIAXONE. Currently, on meropenem. We will follow the CBC, SMA-18, sed rate, C-reactive protein once weekly, and last sed rate was 50 on the 10th. C-reactive is noted, and chemistries are noted. Colt Coronel MD cc: [id number] TT: 08/10/2016 09:56:02 Confirmation # [id number] Dictation # [id number]
[2016-08-10] MEDS: Pantoprazole 40 mg EC Tab PO SCH (10:01)
[2016-08-10] MEDS: Multivitamin With Minerals Tab PO SCH (10:01)
[2016-08-10] MEDS: Miconazole 2% Cream(30 gm) TOP SCH ×2 (10:02→17:04)
--- NOTE | 2016-08-10 16:50 | CP.PCM.PN ---
<Enrrique Mcmullen - Last Filed: 08/10/16 16:47> Subjective - Date & Time of Evaluation Date of Evaluation: 08/10/16 Time of Evaluation: 07:20 - Subjective Subjective: HOSPITALIST PROGRESS NOTE Patient is seen and examined at bedside. No acute events overnight. Pt in a good mood and states that he is using his incentive spirometer every 6min, using the workout bar and working with PT. He denies having any headache, fever , chills, chest pain, difficulty breathing, nausea vomiting or diarrhea. Objective - Vital Signs/Intake and Output Vital Signs (last 24 hours): Temp Pulse Resp BP Pulse Ox 98.2 F 66 18 122/80 99 08/10/16 08:00 08/10/16 10:01 08/10/16 08:00 08/10/16 10:01 08/10/16 08:00 Intake and Output: 08/10/16 08/10/16 06:59 18:59 Intake Total 990 480 Output Total 600 350 Balance 390 130 - Medications Medications: Current Medications Albuterol/Ipratropium (Duoneb 3 Mg/0.5 Mg (3 Ml) Ud) 3 ml IH [id number] [facility] Last Admin: 08/10/16 14:16 Dose: 3 ml Ascorbic Acid (Vitamin C 500 Mg Tab) 500 mg PO DAILY [facility] Last Admin: 08/10/16 10:01 Dose: 500 mg Baclofen (Lioresal) 20 mg PO BID [facility] Last Admin: 08/10/16 10:01 Dose: 20 mg Bisacodyl (Dulcolax) 5 mg PO DAILY PRN PRN Reason: Constipation Diphenhydramine HCl (Benadryl) 25 mg PO HS PRN PRN Reason: Insomnia Last Admin: 08/09/16 21:46 Dose: 25 mg Meropenem 1g/NS 100mL IVPB (Meropenem 1g/Ns 100ml Ivpb) 1 gm in 100 mls @ 100 mls/hr IVPB Q8 DONAL PRN Reason: Protocol Stop: 08/11/16 22:59 Last Admin: 08/10/16 13:39 Dose: 100 mls/hr Metoclopramide HCl (Reglan) 5 mg IVP Q6 PRN PRN Reason: Nausea/Vomiting Metoprolol Tartrate (Lopressor) 25 mg PO BID [facility] Last Admin: 08/10/16 10:01 Dose: 25 mg Miconazole Nitrate (Miconazole 2% Cream) 0 ea TOP BID [facility] Last Admin: 08/10/16 10:02 Dose: 1 applic Multivitamins/Minerals (Therapeutic-M Tab) 1 tab PO DAILY [facility] Last Admin: 08/10/16 10:01 Dose: 1 tab Nicotine (Nicoderm Cq) 1 patch TD DAILY [facility] Last Admin: 08/10/16 10:02 Dose: Not Given Ondansetron HCl (Zofran Inj) 4 mg IVP Q6H PRN PRN Reason: Nausea/Vomiting Pantoprazole Sodium (Protonix Ec Tab) 40 mg PO ACB [facility] Last Admin: 08/10/16 10:01 Dose: 40 mg Warfarin Sodium (Coumadin) 10 mg PO 1800 [facility] Zinc Sulfate (Zinc Sulfate 220 Mg Cap) 220 mg PO DAILY [facility] Last Admin: 08/10/16 10:01 Dose: 220 mg - Labs Labs: 08/10/16 07:30 08/10/16 07:30 PT 19.2 Seconds (9.9-11.8) H 08/10/16 07:30 INR 1.78 (0.93-1.08) H 08/10/16 07:30 APTT 30.7 Seconds (23.7-30.8) 07/30/16 06:30 - Constitutional Appears: Non-toxic, No Acute Distress - Head Exam Head Exam: ATRAUMATIC, NORMOCEPHALIC - Eye Exam Eye Exam: EOMI - Respiratory Exam Respiratory Exam: Rhonchi, NORMAL BREATHING PATTERN. absent: Accessory Muscle Use, Chest Wall Tenderness, Respiratory Distress Additional comments: over left upper lobe - Cardiovascular Exam Cardiovascular Exam: REGULAR RHYTHM, RRR, +S1, +S2. absent: JVD - GI/Abdominal Exam GI & Abdominal Exam: Soft, Normal Bowel Sounds. absent: Tenderness - Extremities Exam Extremities Exam: absent: Full ROM, Joint Swelling, Tenderness - Neurological Exam Neurological Exam: Alert, Awake, Oriented x3. absent: Normal Gait - Psychiatric Exam Psychiatric exam: Anxious, Normal Mood - Skin Skin Exam: Dry, Intact, Normal Color, Warm Assessment and Plan - Assessment and Plan (Free Text) Plan: 1. 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 Coronel 2. 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 Boots in place - Pt has involuntary spasm of legs. - continue Baclofen 20 mg po BID. - Will continue to monitor. 3. R LE DVT s/p IVC filter placed - Coumadin 2 mg yesterday. - INR 1.78 and uptrending - increased warfarin to 10.0 mg daily - Will monitor INR daily 4. Neurogenic bowel vs. ileus - Full diet but will monitor closely - Continue bowel regimen of Reglan 10 mg IV ACHS, Dulcolax PO and RC PRN - C. diff 07/24 negative 5. Neurogenic bladder - Haque in place, draining herb urine 6. Iron deficiency anemia - H&H is stable 7. multiple stage 2 pressure ulcer on sacrum and buttock - improving - air mattress and continue to reposition q2H - cont multivit, zinv, vitamin C PO - Wound care is following Prophylaxis - GI ppx- Protonix - DVT ppx- coumadin Case was seen, reviewed, and discussed with attending <Tutu Marc B - Last Filed: 08/10/16 17:37> Objective - Vital Signs/Intake and Output Vital Signs (last 24 hours): Temp Pulse Resp BP Pulse Ox 98.2 F 66 18 122/80 99 08/10/16 08:00 08/10/16 10:01 08/10/16 08:00 08/10/16 10:01 08/10/16 08:00 Intake and Output: 08/10/16 08/10/16 06:59 18:59 Intake Total 990 480 Output Total 600 350 Balance 390 130 - Medications Medications: Current Medications Albuterol/Ipratropium (Duoneb 3 Mg/0.5 Mg (3 Ml) Ud) 3 ml IH [id number] [facility] Last Admin: 08/10/16 14:16 Dose: 3 ml Ascorbic Acid (Vitamin C 500 Mg Tab) 500 mg PO DAILY [facility] Last Admin: 08/10/16 10:01 Dose: 500 mg Baclofen (Lioresal) 20 mg PO BID [facility] Last Admin: 08/10/16 17:04 Dose: 20 mg Bisacodyl (Dulcolax) 5 mg PO DAILY PRN PRN Reason: Constipation Diphenhydramine HCl (Benadryl) 25 mg PO HS PRN PRN Reason: Insomnia Last Admin: 08/09/16 21:46 Dose: 25 mg Meropenem 1g/NS 100mL IVPB (Meropenem 1g/Ns 100ml Ivpb) 1 gm in 100 mls @ 100 mls/hr IVPB Q8 DONAL PRN Reason: Protocol Stop: 08/11/16 22:59 Last Admin: 08/10/16 13:39 Dose: 100 mls/hr Metoclopramide HCl (Reglan) 5 mg IVP Q6 PRN PRN Reason: Nausea/Vomiting Metoprolol Tartrate (Lopressor) 25 mg PO BID [facility] Last Admin: 08/10/16 17:05 Dose: 25 mg Miconazole Nitrate (Miconazole 2% Cream) 0 ea TOP BID [facility] Last Admin: 08/10/16 17:04 Dose: 1 applic Multivitamins/Minerals (Therapeutic-M Tab) 1 tab PO DAILY [facility] Last Admin: 08/10/16 10:01 Dose: 1 tab Nicotine (Nicoderm Cq) 1 patch TD DAILY [facility] Last Admin: 08/10/16 10:02 Dose: Not Given Ondansetron HCl (Zofran Inj) 4 mg IVP Q6H PRN PRN Reason: Nausea/Vomiting Pantoprazole Sodium (Protonix Ec Tab) 40 mg PO ACB [facility] Last Admin: 08/10/16 10:01 Dose: 40 mg Warfarin Sodium (Coumadin) 10 mg PO 1800 [facility] Last Admin: 08/10/16 17:03 Dose: 10 mg Zinc Sulfate (Zinc Sulfate 220 Mg Cap) 220 mg PO DAILY [facility] Last Admin: 08/10/16 10:01 Dose: 220 mg - Labs Labs: 08/10/16 07:30 08/10/16 07:30 PT 19.2 Seconds (9.9-11.8) H 08/10/16 07:30 INR 1.78 (0.93-1.08) H 08/10/16 07:30 APTT 30.7 Seconds (23.7-30.8) 07/30/16 06:30 Attending/Attestation - Attestation I have personally seen and examined this patient.: Yes I have fully participated in the care of the patient.: Yes I have reviewed all pertinent clinical information, including history, physical exam and plan: Yes Notes (Text): I have seen and examined the patient at bedside.This is a 51 year old male with history of substance abuse (snorts cocaine), tobacco, alcohol use who got admitted for evaluation of back pain and found to have epidural abscess T1-T5, osteomyelitis, urinary retention and acute RLE DVT s/p IVC filter on coumadin. He underwent emergent laminectomy and epidural abscess was drained. He remains on meropenem. He has involuntary spasm of Lower extremities probably due to loss of cortical inhibition. Will discuss with neurologist. For now, continue baclofen 20 mg po bid. He has haque catheter for neurogenic bladder. Advised frequent turning. Continue air mattress. continue wound care. As per nurses, wound are getting better. INR is low. Will increase coumadin to 10 mg today. Pending placement. Will discuss with caser in tomorrow. Dr Tutu Marc
[2016-08-10] MEDS: DiphenhydrAMINE 12.5 mg/5 ml LIQ UD (5 ml) PO PRN (22:07)
[2016-08-11] MEDS: Albuterol-Ipratrop 3 mg / 0.5 (3 ml) UD IH SCH ×4 (03:16→20:20)
[2016-08-11] MEDS: Meropenem 1g/NS 100mL IVPB 1 GM/100 ML PIGGYBACK IVPB SCH ×3 (06:30→22:28)
[2016-08-11 07:34] LABS: BASO # 0.04 K/mm3 (0.0-2.0); BASO % 0.6 % (0.0-3.0); EOS # 0.2 (0.0-0.7); EOS % 2.6 % (1.5-5.0); GRAN # 4.51 (1.4-6.5); GRAN % 67.9 % (50.0-68.0); HEMOGLOBIN 12.1 gm/dL (14.0-18.0); LYMPH # 1.4 (1.2-3.4); LYMPH % 20.3 % (22.0-35.0); MEAN CELL VOLUME 89.7 fL (80.0-105.0); MEAN CORPUSCULAR HEMOGLOBIN 29.7 pg (25.0-35.0); MEAN CORPUSCULAR HGB CONC 33.2 g/dl (31.0-37.0); MEAN PLATELET VOLUME 11.7 fl (7.0-11.0); MONO # 0.6 (0.1-0.6); MONO % 8.6 % (1.0-6.0); PLATELET COUNT 197 10^3/uL (120.0-450.0); RBC 4.07 10^6/uL (3.5-6.1); RED CELL DISTRIBUTION WIDTH 13.8 % (11.5-14.5); WHITE BLOOD COUNT 6.6 10^3/ul (4.5-11.0)
[2016-08-11 07:43] LABS: INR 2.37 (0.93-1.08); PROTHROMBIN TIME 25.6 Seconds (9.9-11.8)
[2016-08-11 07:56] LABS: BLOOD UREA NITROGEN 17 mg/dL (7-21); CALCIUM 9.4 mg/dL (8.4-10.5); GFR AFRICAN-AMERICAN > 60; GFR NON-AFRICAN AMERICAN > 60
[2016-08-11] MEDS: Multivitamin With Minerals Tab PO SCH (10:31)
[2016-08-11] MEDS: Pantoprazole 40 mg EC Tab PO SCH (10:31)
[2016-08-11] MEDS: Miconazole 2% Cream(30 gm) TOP SCH (10:31)
--- NOTE | 2016-08-11 11:24 | CP.PCM.PN ---
<Keri Guzman - Last Filed: 08/11/16 13:31> Subjective - Date & Time of Evaluation Date of Evaluation: 08/11/16 Time of Evaluation: 11:22 - Subjective Subjective: HOSPITALISTS PROGRESS NOTE Pt is seen and examined at bedside. No acute events overnight. Patient denies having any CP, SOB, abd pain, N/V/F/C. Patient states that he is doing PT exercises in bed and is using incentive spirometer as indicated. Tolerating diet and having regular BMs. Objective - Vital Signs/Intake and Output Vital Signs (last 24 hours): Temp Pulse Resp BP Pulse Ox 98 F 68 18 119/80 98 08/11/16 07:47 08/11/16 07:47 08/11/16 07:47 08/11/16 10:30 08/11/16 11:07 Intake and Output: 08/11/16 08/11/16 06:59 18:59 Intake Total 360 Output Total 300 Balance 60 - Medications Medications: Current Medications Albuterol/Ipratropium (Duoneb 3 Mg/0.5 Mg (3 Ml) Ud) 3 ml IH [id number] [facility] Last Admin: 08/11/16 08:52 Dose: 3 ml Ascorbic Acid (Vitamin C 500 Mg Tab) 500 mg PO DAILY [facility] Last Admin: 08/11/16 10:31 Dose: 500 mg Baclofen (Lioresal) 20 mg PO BID [facility] Last Admin: 08/11/16 10:30 Dose: 20 mg Bisacodyl (Dulcolax) 5 mg PO DAILY PRN PRN Reason: Constipation Diphenhydramine HCl (Benadryl) 25 mg PO HS PRN PRN Reason: Insomnia Last Admin: 08/10/16 22:07 Dose: 25 mg Meropenem 1g/NS 100mL IVPB (Meropenem 1g/Ns 100ml Ivpb) 1 gm in 100 mls @ 100 mls/hr IVPB Q8 DONAL PRN Reason: Protocol Stop: 08/11/16 22:59 Last Admin: 08/11/16 06:30 Dose: 100 mls/hr Metoclopramide HCl (Reglan) 5 mg IVP Q6 PRN PRN Reason: Nausea/Vomiting Metoprolol Tartrate (Lopressor) 25 mg PO BID [facility] Last Admin: 08/11/16 10:30 Dose: 25 mg Miconazole Nitrate (Miconazole 2% Cream) 0 ea TOP BID [facility] Last Admin: 08/11/16 10:31 Dose: 1 applic Multivitamins/Minerals (Therapeutic-M Tab) 1 tab PO DAILY [facility] Last Admin: 08/11/16 10:31 Dose: 1 tab Nicotine (Nicoderm Cq) 1 patch TD DAILY [facility] Last Admin: 08/11/16 10:31 Dose: Not Given Ondansetron HCl (Zofran Inj) 4 mg IVP Q6H PRN PRN Reason: Nausea/Vomiting Pantoprazole Sodium (Protonix Ec Tab) 40 mg PO ACB [facility] Last Admin: 08/11/16 10:31 Dose: 40 mg Warfarin Sodium (Coumadin) 10 mg PO 1800 [facility] Last Admin: 08/10/16 17:03 Dose: 10 mg Zinc Sulfate (Zinc Sulfate 220 Mg Cap) 220 mg PO DAILY [facility] Last Admin: 08/11/16 10:31 Dose: 220 mg - Labs Labs: 08/11/16 07:15 08/11/16 07:15 PT 25.6 Seconds (9.9-11.8) H 08/11/16 07:15 INR 2.37 (0.93-1.08) H 08/11/16 07:15 APTT 30.7 Seconds (23.7-30.8) 07/30/16 06:30 - Constitutional Appears: Non-toxic, No Acute Distress - ENT Exam ENT Exam: Mucous Membranes Moist - Respiratory Exam Respiratory Exam: Clear to Ausculation Bilateral. absent: Rales, Rhonchi, Wheezes - Cardiovascular Exam Cardiovascular Exam: REGULAR RHYTHM, +S1, +S2. absent: Gallop, Rubs, Murmur - GI/Abdominal Exam GI & Abdominal Exam: Distended, Soft. 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 1. 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 Coronel 2. 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 Boots in place - continue Baclofen 20 mg po BID for LE fasiculations. - Will continue to monitor. 3. R LE DVT s/p IVC filter placed - Continue Coumadin QD. - Will continue to trend INR daily 4. Neurogenic bowel vs. ileus - Full diet but will monitor closely - Continue bowel regimen of Reglan 10 mg IV ACHS, Dulcolax PO and RC PRN - C. diff 07/24 negative 5. Neurogenic bladder - Haque in place, draining herb urine 6. Iron deficiency anemia - H&H is stable 7. multiple stage 2 pressure ulcer on sacrum and buttock - improving - air mattress and continue to reposition q2H - cont multivit, zinv, vitamin C PO - Wound care is following Prophylaxis - GI ppx- Protonix - DVT ppx- coumadin Case was seen, reviewed, and discussed with attending, Dr. Piedra <Tobin Piedra - Last Filed: 08/13/16 14:15> Objective - Vital Signs/Intake and Output Vital Signs (last 24 hours): Temp Pulse Resp BP Pulse Ox 98.1 F 74 20 122/73 98 08/13/16 08:00 08/13/16 09:17 08/13/16 08:00 08/13/16 09:17 08/13/16 08:00 Intake and Output: 08/13/16 08/13/16 06:59 18:59 Intake Total 1080 Output Total 1400 Balance -320 - Medications Medications: Current Medications Albuterol/Ipratropium (Duoneb 3 Mg/0.5 Mg (3 Ml) Ud) 3 ml IH [id number] [facility] Last Admin: 08/13/16 13:19 Dose: 3 ml Ascorbic Acid (Vitamin C 500 Mg Tab) 500 mg PO DAILY [facility] Last Admin: 08/13/16 09:18 Dose: 500 mg Baclofen (Lioresal) 20 mg PO BID [facility] Last Admin: 08/13/16 09:17 Dose: 20 mg Bisacodyl (Dulcolax) 5 mg PO DAILY PRN PRN Reason: Constipation Diphenhydramine HCl (Benadryl) 25 mg PO HS PRN PRN Reason: Insomnia Last Admin: 08/12/16 21:07 Dose: 25 mg Meropenem 1g/NS 100mL IVPB (Meropenem 1g/Ns 100ml Ivpb) 1 gm in 100 mls @ 100 mls/hr IVPB Q8 DONAL PRN Reason: Protocol Stop: 08/19/16 22:01 Last Admin: 08/13/16 05:24 Dose: 100 mls/hr Metoclopramide HCl (Reglan) 5 mg IVP Q6 PRN PRN Reason: Nausea/Vomiting Metoprolol Tartrate (Lopressor) 25 mg PO BID [facility] Last Admin: 08/13/16 09:17 Dose: 25 mg Miconazole Nitrate (Miconazole 2% Cream) 0 ea TOP BID [facility] Last Admin: 08/13/16 09:16 Dose: 1 applic Multivitamins/Minerals (Therapeutic-M Tab) 1 tab PO DAILY [facility] Last Admin: 08/13/16 09:18 Dose: 1 tab Nicotine (Nicoderm Cq) 1 patch TD DAILY [facility] Last Admin: 08/13/16 09:26 Dose: Not Given Ondansetron HCl (Zofran Inj) 4 mg IVP Q6H PRN PRN Reason: Nausea/Vomiting Pantoprazole Sodium (Protonix Ec Tab) 40 mg PO ACB [facility] Last Admin: 08/13/16 07:40 Dose: 40 mg Warfarin Sodium (Coumadin) 5 mg PO 1800 [facility] Zinc Sulfate (Zinc Sulfate 220 Mg Cap) 220 mg PO DAILY [facility] Last Admin: 08/13/16 09:21 Dose: 220 mg - Labs Labs: 08/13/16 09:00 08/13/16 09:00 PT 42.3 Seconds (9.9-11.8) H* 08/13/16 07:00 INR 3.92 (0.93-1.08) H* 08/13/16 07:00 APTT 30.7 Seconds (23.7-30.8) 07/30/16 06:30 Attending/Attestation - Attestation I have personally seen and examined this patient.: Yes I have fully participated in the care of the patient.: Yes I have reviewed all pertinent clinical information, including history, physical exam and plan: Yes Notes (Text): 08/13/16 14:13 attending note; I have seen and examined the patient at bedside. This is a 51 year old male with history of substance abuse (snorts cocaine), tobacco, alcohol use who got admitted for evaluation of back pain and found to have epidural abscess T1-T5, osteomyelitis, urinary retention and acute RLE DVT s/p IVC filter on coumadin. He underwent emergent laminectomy and epidural abscess was drained. He remains on meropenem. He has involuntary spasm of Lower extremities. continue baclofen 20 mg po bid. He has haque catheter for neurogenic bladder. Advised frequent turning. Continue air mattress. continue wound care. As per nurses, wound are getting better. INR is therapeutic. Pending placement. Case discussed with medical case worker and social secretary in detail.
--- NOTE | 2016-08-11 19:46 | CP.PCM.PN ---
Subjective - Date & Time of Evaluation Date of Evaluation: 08/11/16 Time of Evaluation: 09:55 - Subjective Subjective: Comfortable, not in distress, afebrile, no diarrhea. Objective - Vital Signs/Intake and Output Vital Signs (last 24 hours): Temp Pulse Resp BP Pulse Ox 97.4 F L 61 20 123/74 98 08/11/16 16:00 08/11/16 16:00 08/11/16 16:00 08/11/16 17:34 08/11/16 16:00 Intake and Output: 08/11/16 08/12/16 18:59 06:59 Intake Total 780 Output Total 600 Balance 180 - Medications Medications: Current Medications Albuterol/Ipratropium (Duoneb 3 Mg/0.5 Mg (3 Ml) Ud) 3 ml IH [id number] [facility] Last Admin: 08/11/16 14:00 Dose: Not Given Ascorbic Acid (Vitamin C 500 Mg Tab) 500 mg PO DAILY [facility] Last Admin: 08/11/16 10:31 Dose: 500 mg Baclofen (Lioresal) 20 mg PO BID [facility] Last Admin: 08/11/16 17:35 Dose: 20 mg Bisacodyl (Dulcolax) 5 mg PO DAILY PRN PRN Reason: Constipation Diphenhydramine HCl (Benadryl) 25 mg PO HS PRN PRN Reason: Insomnia Last Admin: 08/10/16 22:07 Dose: 25 mg Meropenem 1g/NS 100mL IVPB (Meropenem 1g/Ns 100ml Ivpb) 1 gm in 100 mls @ 100 mls/hr IVPB Q8 DONAL PRN Reason: Protocol Stop: 08/11/16 22:59 Last Admin: 08/11/16 15:00 Dose: 100 mls/hr Metoclopramide HCl (Reglan) 5 mg IVP Q6 PRN PRN Reason: Nausea/Vomiting Metoprolol Tartrate (Lopressor) 25 mg PO BID [facility] Last Admin: 08/11/16 17:34 Dose: 25 mg Miconazole Nitrate (Miconazole 2% Cream) 0 ea TOP BID [facility] Last Admin: 08/11/16 10:31 Dose: 1 applic Multivitamins/Minerals (Therapeutic-M Tab) 1 tab PO DAILY [facility] Last Admin: 08/11/16 10:31 Dose: 1 tab Nicotine (Nicoderm Cq) 1 patch TD DAILY [facility] Last Admin: 08/11/16 10:31 Dose: Not Given Ondansetron HCl (Zofran Inj) 4 mg IVP Q6H PRN PRN Reason: Nausea/Vomiting Pantoprazole Sodium (Protonix Ec Tab) 40 mg PO ACB [facility] Last Admin: 08/11/16 10:31 Dose: 40 mg Warfarin Sodium (Coumadin) 10 mg PO 1800 [facility] Last Admin: 08/11/16 17:35 Dose: 10 mg Zinc Sulfate (Zinc Sulfate 220 Mg Cap) 220 mg PO DAILY [facility] Last Admin: 08/11/16 10:31 Dose: 220 mg - Labs Labs: 08/11/16 07:15 08/11/16 07:15 PT 25.6 Seconds (9.9-11.8) H 08/11/16 07:15 INR 2.37 (0.93-1.08) H 08/11/16 07:15 APTT 30.7 Seconds (23.7-30.8) 07/30/16 06:30 - Constitutional Appears: Non-toxic, No Acute Distress - Head Exam Head Exam: NORMAL INSPECTION - ENT Exam ENT Exam: Mucous Membranes Moist - Neck Exam Neck Exam: absent: Lymphadenopathy, Meningismus - Respiratory Exam Respiratory Exam: Decreased Breath Sounds - Cardiovascular Exam Cardiovascular Exam: +S1, +S2 - GI/Abdominal Exam GI & Abdominal Exam: Soft. 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
[2016-08-11] MEDS: DiphenhydrAMINE 12.5 mg/5 ml LIQ UD (5 ml) PO PRN (22:43)
[2016-08-12] MEDS: Albuterol-Ipratrop 3 mg / 0.5 (3 ml) UD IH SCH ×4 (02:50→19:18)
[2016-08-12 07:30] LABS: INR 3.03 (0.93-1.08); PROTHROMBIN TIME 32.7 Seconds (9.9-11.8)
[2016-08-12] MEDS: Pantoprazole 40 mg EC Tab PO SCH (08:18)
--- NOTE | 2016-08-12 09:25 | CP.PCM.PN ---
<Keri Guzman - Last Filed: 08/12/16 13:03> Subjective - Date & Time of Evaluation Date of Evaluation: 08/12/16 Time of Evaluation: 09:22 - Subjective Subjective: HOSPITALISTS PROGRESS NOTE Pt is seen and examined at bedside. No acute events overnight. Patient is resting comfortably. Denies having any N/V/D/C, f/c. Is tolerating diet and having regular BMs. He states that he has some sensation in his abdomen when he needs to have a BM. Pt is still c/o fasiculations in LEs. Objective - Vital Signs/Intake and Output Vital Signs (last 24 hours): Temp Pulse Resp BP Pulse Ox 98.3 F 56 L 20 112/81 98 08/12/16 08:55 08/12/16 08:55 08/12/16 08:55 08/12/16 08:55 08/12/16 08:55 Intake and Output: 08/12/16 08/12/16 06:59 18:59 Intake Total 820 260 Output Total 640 Balance 180 260 - Medications Medications: Current Medications Albuterol/Ipratropium (Duoneb 3 Mg/0.5 Mg (3 Ml) Ud) 3 ml IH [id number] [facility] Last Admin: 08/12/16 07:27 Dose: 3 ml Ascorbic Acid (Vitamin C 500 Mg Tab) 500 mg PO DAILY [facility] Last Admin: 08/11/16 10:31 Dose: 500 mg Baclofen (Lioresal) 20 mg PO BID [facility] Last Admin: 08/11/16 17:35 Dose: 20 mg Bisacodyl (Dulcolax) 5 mg PO DAILY PRN PRN Reason: Constipation Diphenhydramine HCl (Benadryl) 25 mg PO HS PRN PRN Reason: Insomnia Last Admin: 08/11/16 22:43 Dose: 25 mg Metoclopramide HCl (Reglan) 5 mg IVP Q6 PRN PRN Reason: Nausea/Vomiting Metoprolol Tartrate (Lopressor) 25 mg PO BID [facility] Last Admin: 08/11/16 17:34 Dose: 25 mg Miconazole Nitrate (Miconazole 2% Cream) 0 ea TOP BID [facility] Last Admin: 08/11/16 10:31 Dose: 1 applic Multivitamins/Minerals (Therapeutic-M Tab) 1 tab PO DAILY [facility] Last Admin: 08/11/16 10:31 Dose: 1 tab Nicotine (Nicoderm Cq) 1 patch TD DAILY [facility] Last Admin: 08/11/16 10:31 Dose: Not Given Ondansetron HCl (Zofran Inj) 4 mg IVP Q6H PRN PRN Reason: Nausea/Vomiting Pantoprazole Sodium (Protonix Ec Tab) 40 mg PO ACB [facility] Last Admin: 08/12/16 08:18 Dose: 40 mg Warfarin Sodium (Coumadin) 10 mg PO 1800 [facility] Last Admin: 08/11/16 17:35 Dose: 10 mg Zinc Sulfate (Zinc Sulfate 220 Mg Cap) 220 mg PO DAILY [facility] Last Admin: 08/11/16 10:31 Dose: 220 mg - Labs Labs: 08/11/16 07:15 08/11/16 07:15 PT 32.7 Seconds (9.9-11.8) H* 08/12/16 07:00 INR 3.03 (0.93-1.08) H 08/12/16 07:00 APTT 30.7 Seconds (23.7-30.8) 07/30/16 06:30 - Constitutional Appears: Non-toxic, No Acute Distress - Head Exam Head Exam: ATRAUMATIC - ENT Exam ENT Exam: Mucous Membranes Moist - Respiratory Exam Respiratory Exam: Clear to Ausculation Bilateral. absent: Accessory Muscle Use , Rales, Rhonchi, Wheezes, Respiratory Distress - Cardiovascular Exam Cardiovascular Exam: REGULAR RHYTHM, +S1, +S2. absent: Gallop, Rubs, Murmur - GI/Abdominal Exam GI & Abdominal Exam: Soft, Normal Bowel Sounds. absent: Distended, Firm, Guarding, Rigid, Tenderness - Extremities Exam Extremities Exam: absent: Pedal Edema, Tenderness - Neurological Exam Neurological Exam: Alert, Awake, Oriented x3 Neuro motor strength exam: Left Upper Extremity: 5, Right Upper Extremity: 5, Left Lower Extremity: 0, Right Lower Extremity: 0 - Psychiatric Exam Psychiatric exam: Normal Affect, Normal Mood - Skin Skin Exam: Dry, Intact, Normal Color, Warm Assessment and Plan - Assessment and Plan (Free Text) Assessment: 51 year old male with no significant past medical history is s/p T2-T4 lamenectomy on 07/07/16 with paralysis of LE, US of LE showed R LE DVT s/p IVC filter and warfarin. 1. 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 Coronel - Will consider removing eileen soon from back 2. 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 Boots in place - continue Baclofen 20 mg po BID for LE fasiculations. - Will continue to monitor. 3. R LE DVT s/p IVC filter placed - Continue Coumadin QD and adjust based upon INR. - Will continue to trend INR daily 4. Neurogenic bowel vs. ileus - Full diet but will monitor closely - Continue bowel regimen of Reglan 10 mg IV ACHS, Dulcolax PO and RC PRN - C. diff 07/24 negative 5. Neurogenic bladder - Haque in place, draining herb urine 6. Iron deficiency anemia - H&H is stable 7. multiple stage 2 pressure ulcer on sacrum and buttock - improving - air mattress and continue to reposition q2H - cont multivit, zinv, vitamin C PO - Wound care is following Prophylaxis - GI ppx- Protonix - DVT ppx- coumadin Case was seen, reviewed, and discussed with attending, Dr. Piedra <Tobin Piedra - Last Filed: 08/13/16 14:16> Objective - Vital Signs/Intake and Output Vital Signs (last 24 hours): Temp Pulse Resp BP Pulse Ox 98.1 F 74 20 122/73 98 08/13/16 08:00 08/13/16 09:17 08/13/16 08:00 08/13/16 09:17 08/13/16 08:00 Intake and Output: 08/13/16 08/13/16 06:59 18:59 Intake Total 1080 Output Total 1400 Balance -320 - Medications Medications: Current Medications Albuterol/Ipratropium (Duoneb 3 Mg/0.5 Mg (3 Ml) Ud) 3 ml IH [id number] [facility] Last Admin: 08/13/16 13:19 Dose: 3 ml Ascorbic Acid (Vitamin C 500 Mg Tab) 500 mg PO DAILY [facility] Last Admin: 08/13/16 09:18 Dose: 500 mg Baclofen (Lioresal) 20 mg PO BID [facility] Last Admin: 08/13/16 09:17 Dose: 20 mg Bisacodyl (Dulcolax) 5 mg PO DAILY PRN PRN Reason: Constipation Diphenhydramine HCl (Benadryl) 25 mg PO HS PRN PRN Reason: Insomnia Last Admin: 08/12/16 21:07 Dose: 25 mg Meropenem 1g/NS 100mL IVPB (Meropenem 1g/Ns 100ml Ivpb) 1 gm in 100 mls @ 100 mls/hr IVPB Q8 [facility] PRN Reason: Protocol Stop: 08/19/16 22:01 Last Admin: 08/13/16 05:24 Dose: 100 mls/hr Metoclopramide HCl (Reglan) 5 mg IVP Q6 PRN PRN Reason: Nausea/Vomiting Metoprolol Tartrate (Lopressor) 25 mg PO BID [facility] Last Admin: 08/13/16 09:17 Dose: 25 mg Miconazole Nitrate (Miconazole 2% Cream) 0 ea TOP BID [facility] Last Admin: 08/13/16 09:16 Dose: 1 applic Multivitamins/Minerals (Therapeutic-M Tab) 1 tab PO DAILY [facility] Last Admin: 08/13/16 09:18 Dose: 1 tab Nicotine (Nicoderm Cq) 1 patch TD DAILY [facility] Last Admin: 08/13/16 09:26 Dose: Not Given Ondansetron HCl (Zofran Inj) 4 mg IVP Q6H PRN PRN Reason: Nausea/Vomiting Pantoprazole Sodium (Protonix Ec Tab) 40 mg PO ACB [facility] Last Admin: 08/13/16 07:40 Dose: 40 mg Warfarin Sodium (Coumadin) 5 mg PO 1800 [facility] Zinc Sulfate (Zinc Sulfate 220 Mg Cap) 220 mg PO DAILY [facility] Last Admin: 08/13/16 09:21 Dose: 220 mg - Labs Labs: 08/13/16 09:00 08/13/16 09:00 PT 42.3 Seconds (9.9-11.8) H* 08/13/16 07:00 INR 3.92 (0.93-1.08) H* 08/13/16 07:00 APTT 30.7 Seconds (23.7-30.8) 07/30/16 06:30 Attending/Attestation - Attestation I have personally seen and examined this patient.: Yes I have fully participated in the care of the patient.: Yes I have reviewed all pertinent clinical information, including history, physical exam and plan: Yes Notes (Text): 08/13/16 14:15 attending note; I have seen and examined the patient at bedside. This is a 51 year old male with history of substance abuse (snorts cocaine), tobacco, alcohol use who got admitted for evaluation of back pain and found to have epidural abscess T1-T5, osteomyelitis, urinary retention and acute RLE DVT s/p IVC filter on coumadin. He underwent emergent laminectomy and epidural abscess was drained. He remains on meropenem. He has involuntary spasm of Lower extremities. continue baclofen 20 mg po bid. He has haque catheter for neurogenic bladder. Advised frequent turning. Continue air mattress. continue wound care. As per nurses, wound are getting better. INR is therapeutic. decrease the Coumadin dose. Pending placement. Case discussed with top case assembler and clinical social work therapist in detail. 08/13/16 14:15
[2016-08-12] MEDS: Multivitamin With Minerals Tab PO SCH (10:43)
[2016-08-12] MEDS: Miconazole 2% Cream(30 gm) TOP SCH ×2 (10:49→17:45)
--- NOTE | 2016-08-12 14:35 | CP.PCM.PN ---
Subjective - Date & Time of Evaluation Date of Evaluation: 08/12/16 Time of Evaluation: 10:10 - Subjective Subjective: Comfortable, afebrile, not in distress. Objective - Vital Signs/Intake and Output Vital Signs (last 24 hours): Temp Pulse Resp BP Pulse Ox 98.3 F 77 20 135/87 98 08/12/16 08:55 08/12/16 10:48 08/12/16 08:55 08/12/16 10:48 08/12/16 08:55 Intake and Output: 08/12/16 08/12/16 06:59 18:59 Intake Total 820 380 Output Total 640 Balance 180 380 - Medications Medications: Current Medications Albuterol/Ipratropium (Duoneb 3 Mg/0.5 Mg (3 Ml) Ud) 3 ml IH [id number] [facility] Last Admin: 08/12/16 13:27 Dose: 3 ml Ascorbic Acid (Vitamin C 500 Mg Tab) 500 mg PO DAILY [facility] Last Admin: 08/12/16 10:44 Dose: 500 mg Baclofen (Lioresal) 20 mg PO BID [facility] Last Admin: 08/12/16 10:44 Dose: 20 mg Bisacodyl (Dulcolax) 5 mg PO DAILY PRN PRN Reason: Constipation Diphenhydramine HCl (Benadryl) 25 mg PO HS PRN PRN Reason: Insomnia Last Admin: 08/11/16 22:43 Dose: 25 mg Meropenem 1g/NS 100mL IVPB (Meropenem 1g/Ns 100ml Ivpb) 100 mls @ 100 mls/hr IVPB Q8 DONAL PRN Reason: Protocol Stop: 08/19/16 22:01 Metoclopramide HCl (Reglan) 5 mg IVP Q6 PRN PRN Reason: Nausea/Vomiting Metoprolol Tartrate (Lopressor) 25 mg PO BID [facility] Last Admin: 08/12/16 10:48 Dose: 25 mg Miconazole Nitrate (Miconazole 2% Cream) 0 ea TOP BID [facility] Last Admin: 08/12/16 10:49 Dose: 1 applic Multivitamins/Minerals (Therapeutic-M Tab) 1 tab PO DAILY [facility] Last Admin: 08/12/16 10:43 Dose: 1 tab Nicotine (Nicoderm Cq) 1 patch TD DAILY [facility] Last Admin: 08/12/16 10:44 Dose: Not Given Ondansetron HCl (Zofran Inj) 4 mg IVP Q6H PRN PRN Reason: Nausea/Vomiting Pantoprazole Sodium (Protonix Ec Tab) 40 mg PO ACB [facility] Last Admin: 08/12/16 08:18 Dose: 40 mg Warfarin Sodium (Coumadin) 7.5 mg PO 1800 [facility] Zinc Sulfate (Zinc Sulfate 220 Mg Cap) 220 mg PO DAILY [facility] Last Admin: 08/12/16 10:44 Dose: 220 mg - Labs Labs: 08/11/16 07:15 08/11/16 07:15 PT 32.7 Seconds (9.9-11.8) H* 08/12/16 07:00 INR 3.03 (0.93-1.08) H 08/12/16 07:00 APTT 30.7 Seconds (23.7-30.8) 07/30/16 06:30 - Constitutional Appears: Non-toxic, No Acute Distress - Head Exam Head Exam: NORMAL INSPECTION - ENT Exam ENT Exam: Mucous Membranes Moist - Neck Exam Neck Exam: absent: Lymphadenopathy, Meningismus - Respiratory Exam Respiratory Exam: Decreased Breath Sounds - Cardiovascular Exam Cardiovascular Exam: +S1, +S2 - GI/Abdominal Exam GI & Abdominal Exam: Soft. 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 with associated cord compression and lower extremity paralysis S/P neurosurgery for abscess drainage and laminectomy POD #35 Possible drug reaction to Rocephin Partial small bowel obstruction, clinically improved significant smoking history alcohol abuse obesity with BMI 40 Plan continue Merrem to complete 6 weeks of therapy Will continue to follow clinically
[2016-08-12] MEDS: DiphenhydrAMINE 12.5 mg/5 ml LIQ UD (5 ml) PO PRN (21:07)
[2016-08-12] MEDS: Meropenem 1g/NS 100mL IVPB 1 GM/100 ML PIGGYBACK IVPB SCH (21:08)
[2016-08-13] MEDS: Albuterol-Ipratrop 3 mg / 0.5 (3 ml) UD IH SCH ×4 (02:00→20:06)
[2016-08-13] MEDS: Meropenem 1g/NS 100mL IVPB 1 GM/100 ML PIGGYBACK IVPB SCH ×3 (05:24→21:44)
[2016-08-13] MEDS: Pantoprazole 40 mg EC Tab PO SCH (07:40)
[2016-08-13 08:01] LABS: PROTHROMBIN TIME 42.3 Seconds (9.9-11.8)
[2016-08-13 08:06] LABS: INR 3.92 (0.93-1.08)
[2016-08-13] MEDS: Miconazole 2% Cream(30 gm) TOP SCH ×2 (09:16→17:12)
[2016-08-13] MEDS: Multivitamin With Minerals Tab PO SCH (09:18)
--- NOTE | 2016-08-13 09:51 | CP.PCM.PN ---
<Keri Guzman - Last Filed: 08/13/16 10:31> Subjective - Date & Time of Evaluation Date of Evaluation: 08/13/16 Time of Evaluation: 09:46 - Subjective Subjective: HOSPITALISTS PROGRESS NOTE Pt seen and examined at bedside. No acute events overnight. Patient is having regular bowel movements and tolerating diet. Denies having any HE, CP, SOB, abd pain, N/V. Objective - Vital Signs/Intake and Output Vital Signs (last 24 hours): Temp Pulse Resp BP Pulse Ox 97 F L 74 18 122/73 96 08/12/16 19:33 08/13/16 09:17 08/12/16 19:33 08/13/16 09:17 08/12/16 19:33 Intake and Output: 08/13/16 08/13/16 06:59 18:59 Intake Total 1080 Output Total 1400 Balance -320 - Medications Medications: Current Medications Albuterol/Ipratropium (Duoneb 3 Mg/0.5 Mg (3 Ml) Ud) 3 ml IH [id number] [facility] Last Admin: 08/13/16 07:16 Dose: 3 ml Ascorbic Acid (Vitamin C 500 Mg Tab) 500 mg PO DAILY [facility] Last Admin: 08/13/16 09:18 Dose: 500 mg Baclofen (Lioresal) 20 mg PO BID [facility] Last Admin: 08/13/16 09:17 Dose: 20 mg Bisacodyl (Dulcolax) 5 mg PO DAILY PRN PRN Reason: Constipation Diphenhydramine HCl (Benadryl) 25 mg PO HS PRN PRN Reason: Insomnia Last Admin: 08/12/16 21:07 Dose: 25 mg Meropenem 1g/NS 100mL IVPB (Meropenem 1g/Ns 100ml Ivpb) 1 gm in 100 mls @ 100 mls/hr IVPB Q8 [facility] PRN Reason: Protocol Stop: 08/19/16 22:01 Last Admin: 08/13/16 05:24 Dose: 100 mls/hr Metoclopramide HCl (Reglan) 5 mg IVP Q6 PRN PRN Reason: Nausea/Vomiting Metoprolol Tartrate (Lopressor) 25 mg PO BID [facility] Last Admin: 08/13/16 09:17 Dose: 25 mg Miconazole Nitrate (Miconazole 2% Cream) 0 ea TOP BID [facility] Last Admin: 08/13/16 09:16 Dose: 1 applic Multivitamins/Minerals (Therapeutic-M Tab) 1 tab PO DAILY [facility] Last Admin: 08/13/16 09:18 Dose: 1 tab Nicotine (Nicoderm Cq) 1 patch TD DAILY [facility] Last Admin: 08/13/16 09:26 Dose: Not Given Ondansetron HCl (Zofran Inj) 4 mg IVP Q6H PRN PRN Reason: Nausea/Vomiting Pantoprazole Sodium (Protonix Ec Tab) 40 mg PO ACB [facility] Last Admin: 08/13/16 07:40 Dose: 40 mg Warfarin Sodium (Coumadin) 5 mg PO 1800 [facility] Zinc Sulfate (Zinc Sulfate 220 Mg Cap) 220 mg PO DAILY [facility] Last Admin: 08/13/16 09:21 Dose: 220 mg - Labs Labs: 08/11/16 07:15 08/11/16 07:15 PT 42.3 Seconds (9.9-11.8) H* 08/13/16 07:00 INR 3.92 (0.93-1.08) H* 08/13/16 07:00 APTT 30.7 Seconds (23.7-30.8) 07/30/16 06:30 - Constitutional Appears: Non-toxic, No Acute Distress - Head Exam Head Exam: ATRAUMATIC - Eye Exam Eye Exam: EOMI - ENT Exam ENT Exam: Mucous Membranes Moist - Respiratory Exam Respiratory Exam: Clear to Ausculation Bilateral, NORMAL BREATHING PATTERN. absent: Accessory Muscle Use, Rales, Rhonchi, Wheezes, Respiratory Distress - Cardiovascular Exam Cardiovascular Exam: REGULAR RHYTHM, +S1, +S2. absent: Gallop, Rubs, Murmur - GI/Abdominal Exam GI & Abdominal Exam: Soft, Normal Bowel Sounds. absent: Distended, Firm, Guarding, Rigid, Tenderness - Extremities Exam Extremities Exam: absent: Pedal Edema, Tenderness - Neurological Exam Neurological Exam: Alert, Awake, Oriented x3 - Psychiatric Exam Psychiatric exam: Normal Affect, Normal Mood - Skin Skin Exam: Dry, Intact, Normal Color, Warm Assessment and Plan - Assessment and Plan (Free Text) Assessment: 51 year old male with no significant past medical history is s/p T2-T4 lamenectomy on 07/07/16 with paralysis of LE, US of LE showed R LE DVT s/p IVC filter and warfarin. 1. 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 Coronel - Will consider removing eileen soon from back 2. 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 Boots in place - continue Baclofen 20 mg po BID for LE fasiculations. - Will continue to monitor. 3. R LE DVT s/p IVC filter placed - INR today is 3.9. Will hold coumadin today and restart tomorrow at 5 mg qd. - Will continue to trend INR daily 4. Neurogenic bowel vs. ileus - Full diet but will monitor closely - Continue bowel regimen of Reglan 10 mg IV ACHS, Dulcolax PO and RC PRN - C. diff 07/24 negative 5. Neurogenic bladder - Haque in place, draining herb urine 6. Iron deficiency anemia - H&H is stable 7. multiple stage 2 pressure ulcer on sacrum and buttock - improving - air mattress and continue to reposition q2H - cont multivit, zinv, vitamin C PO - Wound care is following Prophylaxis - GI ppx- Protonix - DVT ppx- coumadin Case was seen, reviewed, and discussed with attending, Dr. Piedra <Tobin Piedra - Last Filed: 08/13/16 14:17> Objective - Vital Signs/Intake and Output Vital Signs (last 24 hours): Temp Pulse Resp BP Pulse Ox 98.1 F 74 20 122/73 98 08/13/16 08:00 08/13/16 09:17 08/13/16 08:00 08/13/16 09:17 08/13/16 08:00 Intake and Output: 08/13/16 08/13/16 06:59 18:59 Intake Total 1080 Output Total 1400 Balance -320 - Medications Medications: Current Medications Albuterol/Ipratropium (Duoneb 3 Mg/0.5 Mg (3 Ml) Ud) 3 ml IH [id number] [facility] Last Admin: 08/13/16 13:19 Dose: 3 ml Ascorbic Acid (Vitamin C 500 Mg Tab) 500 mg PO DAILY [facility] Last Admin: 08/13/16 09:18 Dose: 500 mg Baclofen (Lioresal) 20 mg PO BID [facility] Last Admin: 08/13/16 09:17 Dose: 20 mg Bisacodyl (Dulcolax) 5 mg PO DAILY PRN PRN Reason: Constipation Diphenhydramine HCl (Benadryl) 25 mg PO HS PRN PRN Reason: Insomnia Last Admin: 08/12/16 21:07 Dose: 25 mg Meropenem 1g/NS 100mL IVPB (Meropenem 1g/Ns 100ml Ivpb) 1 gm in 100 mls @ 100 mls/hr IVPB Q8 [facility] PRN Reason: Protocol Stop: 08/19/16 22:01 Last Admin: 08/13/16 14:15 Dose: 100 mls/hr Metoclopramide HCl (Reglan) 5 mg IVP Q6 PRN PRN Reason: Nausea/Vomiting Metoprolol Tartrate (Lopressor) 25 mg PO BID [facility] Last Admin: 08/13/16 09:17 Dose: 25 mg Miconazole Nitrate (Miconazole 2% Cream) 0 ea TOP BID [facility] Last Admin: 08/13/16 09:16 Dose: 1 applic Multivitamins/Minerals (Therapeutic-M Tab) 1 tab PO DAILY [facility] Last Admin: 08/13/16 09:18 Dose: 1 tab Nicotine (Nicoderm Cq) 1 patch TD DAILY [facility] Last Admin: 08/13/16 09:26 Dose: Not Given Ondansetron HCl (Zofran Inj) 4 mg IVP Q6H PRN PRN Reason: Nausea/Vomiting Pantoprazole Sodium (Protonix Ec Tab) 40 mg PO ACB [facility] Last Admin: 08/13/16 07:40 Dose: 40 mg Warfarin Sodium (Coumadin) 5 mg PO 1800 [facility] Zinc Sulfate (Zinc Sulfate 220 Mg Cap) 220 mg PO DAILY [facility] Last Admin: 08/13/16 09:21 Dose: 220 mg - Labs Labs: 08/13/16 09:00 08/13/16 09:00 PT 42.3 Seconds (9.9-11.8) H* 08/13/16 07:00 INR 3.92 (0.93-1.08) H* 08/13/16 07:00 APTT 30.7 Seconds (23.7-30.8) 07/30/16 06:30 Attending/Attestation - Attestation I have personally seen and examined this patient.: Yes I have fully participated in the care of the patient.: Yes I have reviewed all pertinent clinical information, including history, physical exam and plan: Yes Notes (Text): 08/13/16 14:16 attending note; I have seen and examined the patient at bedside. This is a 51 year old male with history of substance abuse (snorts cocaine), tobacco, alcohol use who got admitted for evaluation of back pain and found to have epidural abscess T1-T5, osteomyelitis, urinary retention and acute RLE DVT s/p IVC filter on coumadin. He underwent emergent laminectomy and epidural abscess was drained. He remains on meropenem. He has involuntary spasm of Lower extremities. continue baclofen 20 mg po bid. He has haque catheter for neurogenic bladder. Advised frequent turning. Continue air mattress. continue wound care. As per nurses, wound are getting better. INR is supratherapeutic. hold Coumadin today. Pending placement. Case discussed with pillowcase turner and social services analyst in detail.
[2016-08-13 11:06] LABS: BASO # 0.03 K/mm3 (0.0-2.0); BASO % 0.5 % (0.0-3.0); EOS # 0.2 (0.0-0.7); EOS % 3.7 % (1.5-5.0); GRAN # 4.09 (1.4-6.5); GRAN % 63.9 % (50.0-68.0); HEMOGLOBIN 11.9 gm/dL (14.0-18.0); LYMPH # 1.5 (1.2-3.4); LYMPH % 23.2 % (22.0-35.0); MEAN CELL VOLUME 89.6 fL (80.0-105.0); MEAN CORPUSCULAR HEMOGLOBIN 29.6 pg (25.0-35.0); MEAN CORPUSCULAR HGB CONC 33.1 g/dl (31.0-37.0); MEAN PLATELET VOLUME 12.3 fl (7.0-11.0); MONO # 0.6 (0.1-0.6); MONO % 8.7 % (1.0-6.0); PLATELET COUNT 208 10^3/uL (120.0-450.0); RBC 4.02 10^6/uL (3.5-6.1); RED CELL DISTRIBUTION WIDTH 13.8 % (11.5-14.5); WHITE BLOOD COUNT 6.4 10^3/ul (4.5-11.0)
[2016-08-13 11:16] LABS: BLOOD UREA NITROGEN 14 mg/dL (7-21); CALCIUM 9.7 mg/dL (8.4-10.5); GFR AFRICAN-AMERICAN > 60; GFR NON-AFRICAN AMERICAN > 60
[2016-08-13] MEDS ORDERED: Lidocaine 5% Oint(35 gm) TOP ONE (16:23)
[2016-08-13] MEDS: DiphenhydrAMINE 12.5 mg/5 ml LIQ UD (5 ml) PO PRN (23:25)
[2016-08-14] MEDS: Albuterol-Ipratrop 3 mg / 0.5 (3 ml) UD IH SCH ×2 (01:30→20:26)
[2016-08-14] MEDS: Meropenem 1g/NS 100mL IVPB 1 GM/100 ML PIGGYBACK IVPB SCH (22:22)
[2016-08-14] MEDS: DiphenhydrAMINE 12.5 mg/5 ml LIQ UD (5 ml) PO PRN (22:23)
[2016-08-15] MEDS: Albuterol-Ipratrop 3 mg / 0.5 (3 ml) UD IH SCH ×4 (02:55→20:17)
[2016-08-15] MEDS: Meropenem 1g/NS 100mL IVPB 1 GM/100 ML PIGGYBACK IVPB SCH ×3 (05:48→22:11)
[2016-08-15 07:22] LABS: BASO # 0.03 K/mm3 (0.0-2.0); BASO % 0.4 % (0.0-3.0); EOS # 0.2 (0.0-0.7); EOS % 2.7 % (1.5-5.0); GRAN # 4.99 (1.4-6.5); GRAN % 70.6 % (50.0-68.0); LYMPH # 1.3 (1.2-3.4); LYMPH % 18.5 % (22.0-35.0); MEAN CELL VOLUME 88.4 fL (80.0-105.0); MEAN CORPUSCULAR HEMOGLOBIN 29.7 pg (25.0-35.0); MEAN CORPUSCULAR HGB CONC 33.6 g/dl (31.0-37.0); MEAN PLATELET VOLUME 11.9 fl (7.0-11.0); MONO # 0.6 (0.1-0.6); MONO % 7.8 % (1.0-6.0); PLATELET COUNT 201 10^3/uL (120.0-450.0); RBC 4.04 10^6/uL (3.5-6.1); RED CELL DISTRIBUTION WIDTH 13.7 % (11.5-14.5); WHITE BLOOD COUNT 7.1 10^3/ul (4.5-11.0)
[2016-08-15 07:33] LABS: INR 2.45 (0.93-1.08); PROTHROMBIN TIME 26.5 Seconds (9.9-11.8)
[2016-08-15] MEDS: Pantoprazole 40 mg EC Tab PO SCH (08:02)
[2016-08-15 08:10] LABS: BLOOD UREA NITROGEN 14 mg/dL (7-21); CALCIUM 9.4 mg/dL (8.4-10.5); GFR AFRICAN-AMERICAN > 60; GFR NON-AFRICAN AMERICAN > 60
--- NOTE | 2016-08-15 09:05 | CP.PCM.PN ---
<Keri Guzman - Last Filed: 08/15/16 13:15> Subjective - Date & Time of Evaluation Date of Evaluation: 08/15/16 Time of Evaluation: 09:02 - Subjective Subjective: HOSPITALIST PROGRESS NOTE Pt is seen and examined at bedside. No acute events overnight. Back eileen removed obn 08/13 (22 in all). Patient denies having any CP, SOB, abd pain, N/V/ d/C. Pt is tolerating diet and having regular bowel movements. He states that he can feel when he is passing gas. Objective - Vital Signs/Intake and Output Vital Signs (last 24 hours): Temp Pulse Resp BP Pulse Ox 97.4 F L 65 18 119/72 100 08/14/16 22:00 08/14/16 22:00 08/14/16 22:00 08/14/16 22:00 08/14/16 22:00 Intake and Output: 08/15/16 08/15/16 06:59 18:59 Intake Total 840 Output Total 300 Balance 540 - Medications Medications: Current Medications Albuterol/Ipratropium (Duoneb 3 Mg/0.5 Mg (3 Ml) Ud) 3 ml IH [id number] [facility] Last Admin: 08/15/16 07:29 Dose: 3 ml Ascorbic Acid (Vitamin C 500 Mg Tab) 500 mg PO DAILY [facility] Last Admin: 08/13/16 09:18 Dose: 500 mg Baclofen (Lioresal) 20 mg PO TID [facility] Bisacodyl (Dulcolax) 5 mg PO DAILY PRN PRN Reason: Constipation Diphenhydramine HCl (Benadryl) 25 mg PO HS PRN PRN Reason: Insomnia Last Admin: 08/14/16 22:23 Dose: 25 mg Meropenem 1g/NS 100mL IVPB (Meropenem 1g/Ns 100ml Ivpb) 1 gm in 100 mls @ 100 mls/hr IVPB Q8 DONAL PRN Reason: Protocol Stop: 08/19/16 22:01 Last Admin: 08/15/16 05:48 Dose: 100 mls/hr Metoclopramide HCl (Reglan) 5 mg IVP Q6 PRN PRN Reason: Nausea/Vomiting Metoprolol Tartrate (Lopressor) 25 mg PO BID [facility] Last Admin: 08/13/16 17:12 Dose: 25 mg Miconazole Nitrate (Miconazole 2% Cream) 0 ea TOP BID [facility] Last Admin: 08/13/16 17:12 Dose: 1 applic Multivitamins/Minerals (Therapeutic-M Tab) 1 tab PO DAILY [facility] Last Admin: 08/13/16 09:18 Dose: 1 tab Nicotine (Nicoderm Cq) 1 patch TD DAILY [facility] Last Admin: 08/13/16 09:26 Dose: Not Given Ondansetron HCl (Zofran Inj) 4 mg IVP Q6H PRN PRN Reason: Nausea/Vomiting Pantoprazole Sodium (Protonix Ec Tab) 40 mg PO ACB [facility] Last Admin: 08/15/16 08:02 Dose: 40 mg Warfarin Sodium (Coumadin) 5 mg PO 1800 [facility] Zinc Sulfate (Zinc Sulfate 220 Mg Cap) 220 mg PO DAILY [facility] Last Admin: 08/13/16 09:21 Dose: 220 mg - Labs Labs: 08/15/16 07:00 08/15/16 07:00 PT 26.5 Seconds (9.9-11.8) H 08/15/16 07:00 INR 2.45 (0.93-1.08) H 08/15/16 07:00 APTT 30.7 Seconds (23.7-30.8) 07/30/16 06:30 - Constitutional Appears: Non-toxic, No Acute Distress - Head Exam Head Exam: ATRAUMATIC - ENT Exam ENT Exam: Mucous Membranes Moist - Respiratory Exam Respiratory Exam: Clear to Ausculation Bilateral, NORMAL BREATHING PATTERN. absent: Rales, Rhonchi, Wheezes - Cardiovascular Exam Cardiovascular Exam: REGULAR RHYTHM, +S1, +S2. absent: Gallop, Rubs, Murmur - GI/Abdominal Exam GI & Abdominal Exam: Soft, Normal Bowel Sounds. absent: Distended, Firm, Guarding, Tenderness - Extremities Exam Extremities Exam: absent: Pedal Edema, Tenderness - Neurological Exam Neurological Exam: Alert, Awake, Oriented x3 - Psychiatric Exam Psychiatric exam: Normal Affect, Normal Mood - Skin Skin Exam: Dry, Intact, Normal Color, Warm Assessment and Plan - Assessment and Plan (Free Text) Assessment: 51 year old male with no significant past medical history is s/p T2-T4 lamenectomy on 07/07/16 with paralysis of LE, US of LE showed R LE DVT s/p IVC filter and warfarin. 1. 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 Coronel 2. 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 Boots in place - Baclofen 20 mg PO TID - Will continue to monitor. 3. R LE DVT s/p IVC filter placed - Continue coumadin - Will continue to trend INR daily 4. Neurogenic bowel vs. ileus - Full diet but will monitor closely - Continue bowel regimen of Reglan 10 mg IV ACHS, Dulcolax PO and RC PRN - C. diff 07/24 negative 5. Neurogenic bladder - Haque in place, draining herb urine 6. multiple stage 2 pressure ulcer on sacrum and buttock - improving - air mattress and continue to reposition q2H - cont multivit, zinv, vitamin C PO - Wound care is following Prophylaxis - GI ppx- Protonix - DVT ppx- coumadin Case was seen, reviewed, and discussed with attending, Dr. Piedra <Tobin Piedra - Last Filed: 08/15/16 14:37> Objective - Vital Signs/Intake and Output Vital Signs (last 24 hours): Temp Pulse Resp BP Pulse Ox 97.8 F 68 20 117/62 97 08/15/16 08:00 08/15/16 09:47 08/15/16 08:00 08/15/16 09:47 08/15/16 08:00 Intake and Output: 08/15/16 08/15/16 06:59 18:59 Intake Total 840 840 Output Total 300 250 Balance 540 590 - Medications Medications: Current Medications Albuterol/Ipratropium (Duoneb 3 Mg/0.5 Mg (3 Ml) Ud) 3 ml IH [id number] [facility] Last Admin: 08/15/16 13:30 Dose: 3 ml Ascorbic Acid (Vitamin C 500 Mg Tab) 500 mg PO DAILY [facility] Last Admin: 08/15/16 09:47 Dose: 500 mg Baclofen (Lioresal) 20 mg PO TID [facility] Last Admin: 08/15/16 13:14 Dose: 20 mg Bisacodyl (Dulcolax) 5 mg PO DAILY PRN PRN Reason: Constipation Diphenhydramine HCl (Benadryl) 25 mg PO HS PRN PRN Reason: Insomnia Last Admin: 08/14/16 22:23 Dose: 25 mg Meropenem 1g/NS 100mL IVPB (Meropenem 1g/Ns 100ml Ivpb) 1 gm in 100 mls @ 100 mls/hr IVPB Q8 DONAL PRN Reason: Protocol Stop: 08/19/16 22:01 Last Admin: 08/15/16 13:14 Dose: 100 mls/hr Metoprolol Tartrate (Lopressor) 25 mg PO BID [facility] Last Admin: 08/15/16 09:47 Dose: 25 mg Miconazole Nitrate (Miconazole 2% Cream) 0 ea TOP BID [facility] Last Admin: 08/15/16 09:53 Dose: 1 applic Multivitamins/Minerals (Therapeutic-M Tab) 1 tab PO DAILY [facility] Last Admin: 08/15/16 09:47 Dose: 1 tab Nicotine (Nicoderm Cq) 1 patch TD DAILY [facility] Last Admin: 08/15/16 09:47 Dose: Not Given Ondansetron HCl (Zofran Inj) 4 mg IVP Q6H PRN PRN Reason: Nausea/Vomiting Pantoprazole Sodium (Protonix Ec Tab) 40 mg PO ACB [facility] Last Admin: 08/15/16 08:02 Dose: 40 mg Pramipexole Dihydrochloride (Mirapex) 0.25 mg PO TID [facility] Last Admin: 08/15/16 13:14 Dose: 0.25 mg Silver Sulfadiazine (Silvadene 1% 20 Gm) 0 ea TOP BID [facility] Warfarin Sodium (Coumadin) 5 mg PO 1800 [facility] Zinc Sulfate (Zinc Sulfate 220 Mg Cap) 220 mg PO DAILY [facility] Last Admin: 08/15/16 09:47 Dose: 220 mg - Labs Labs: 08/15/16 07:00 08/15/16 07:00 PT 26.5 Seconds (9.9-11.8) H 08/15/16 07:00 INR 2.45 (0.93-1.08) H 08/15/16 07:00 APTT 30.7 Seconds (23.7-30.8) 07/30/16 06:30 Attending/Attestation - Attestation I have personally seen and examined this patient.: Yes I have fully participated in the care of the patient.: Yes I have reviewed all pertinent clinical information, including history, physical exam and plan: Yes Notes (Text): 08/15/16 14:36 attending note; I have seen and examined the patient at bedside. This is a 51 year old male with history of substance abuse (snorts cocaine), tobacco, alcohol use who got admitted for evaluation of back pain and found to have epidural abscess T1-T5, osteomyelitis, urinary retention and acute RLE DVT s/p IVC filter on coumadin. He underwent emergent laminectomy and epidural abscess was drained. He remains on meropenem. He has involuntary spasm of Lower extremities. continue baclofen 20 mg po bid. Reglan discontinued. started on Mirapex. Case discussed with neurology Dr. Koch in detail. He has haque catheter for neurogenic bladder. Advised frequent turning. Continue air mattress. continue wound care. As per nurses, wound are getting better. INR is therapeutic. continue Coumadin today. Pending placement. Case discussed with community case manager and social science analyst in detail.
[2016-08-15 09:25] LABS: INR 3.22 (0.93-1.08); PROTHROMBIN TIME 34.8 Seconds (9.9-11.8)
[2016-08-15] MEDS: Multivitamin With Minerals Tab PO SCH (09:47)
[2016-08-15] MEDS: Miconazole 2% Cream(30 gm) TOP SCH ×2 (09:53→17:07)
[2016-08-15 10:52] LABS: BLOOD UREA NITROGEN 12 mg/dL (7-21); CALCIUM 9.7 mg/dL (8.4-10.5); GFR AFRICAN-AMERICAN > 60; GFR NON-AFRICAN AMERICAN > 60; MAGNESIUM 1.8 mg/dL (1.7-2.2)
[2016-08-15 11:59] LABS: HEMOGLOBIN 12.1 gm/dL (14.0-18.0); MEAN CELL VOLUME 90.7 fL (80.0-105.0); MEAN CORPUSCULAR HEMOGLOBIN 29.7 pg (25.0-35.0); MEAN CORPUSCULAR HGB CONC 32.8 g/dl (31.0-37.0); MEAN PLATELET VOLUME 12.5 fl (7.0-11.0); RBC 4.07 10^6/uL (3.5-6.1); WHITE BLOOD COUNT 6.9 10^3/ul (4.5-11.0)
[2016-08-15] MEDS: Silver Sulfadiazine 1% Cream (20 gm) TOP SCH (18:02)
[2016-08-15] MEDS: DiphenhydrAMINE 12.5 mg/5 ml LIQ UD (5 ml) PO PRN (22:10)
--- NOTE | 2016-08-15 22:25 | CP.PCM.PN ---
Subjective - Date & Time of Evaluation Date of Evaluation: 08/15/16 Time of Evaluation: 10:30 - Subjective Subjective: Comfortable, afebrile, not in distress. Objective - Vital Signs/Intake and Output Vital Signs (last 24 hours): Temp Pulse Resp BP Pulse Ox 96 F L 53 L 20 111/71 99 08/15/16 16:01 08/15/16 16:01 08/15/16 16:01 08/15/16 16:01 08/15/16 16:01 Intake and Output: 08/15/16 08/16/16 18:59 06:59 Intake Total 840 420 Output Total 250 200 Balance 590 220 - Medications Medications: Current Medications Albuterol/Ipratropium (Duoneb 3 Mg/0.5 Mg (3 Ml) Ud) 3 ml IH [id number] [facility] Last Admin: 08/15/16 20:17 Dose: 3 ml Ascorbic Acid (Vitamin C 500 Mg Tab) 500 mg PO DAILY [facility] Last Admin: 08/15/16 09:47 Dose: 500 mg Baclofen (Lioresal) 20 mg PO TID [facility] Last Admin: 08/15/16 17:06 Dose: 20 mg Bisacodyl (Dulcolax) 5 mg PO DAILY PRN PRN Reason: Constipation Diphenhydramine HCl (Benadryl) 25 mg PO HS PRN PRN Reason: Insomnia Last Admin: 08/15/16 22:10 Dose: 25 mg Meropenem 1g/NS 100mL IVPB (Meropenem 1g/Ns 100ml Ivpb) 1 gm in 100 mls @ 100 mls/hr IVPB Q8 [facility]AL PRN Reason: Protocol Stop: 08/19/16 22:01 Last Admin: 08/15/16 22:11 Dose: 100 mls/hr Metoprolol Tartrate (Lopressor) 25 mg PO BID [facility] Last Admin: 08/15/16 18:02 Dose: Not Given Miconazole Nitrate (Miconazole 2% Cream) 0 ea TOP BID [facility] Last Admin: 08/15/16 17:07 Dose: 1 applic Multivitamins/Minerals (Therapeutic-M Tab) 1 tab PO DAILY [facility] Last Admin: 08/15/16 09:47 Dose: 1 tab Nicotine (Nicoderm Cq) 1 patch TD DAILY [facility] Last Admin: 08/15/16 09:47 Dose: Not Given Ondansetron HCl (Zofran Inj) 4 mg IVP Q6H PRN PRN Reason: Nausea/Vomiting Pantoprazole Sodium (Protonix Ec Tab) 40 mg PO ACB [facility] Last Admin: 08/15/16 08:02 Dose: 40 mg Pramipexole Dihydrochloride (Mirapex) 0.25 mg PO TID [facility] Last Admin: 08/15/16 17:06 Dose: 0.25 mg Silver Sulfadiazine (Silvadene 1% 20 Gm) 0 ea TOP BID [facility] Last Admin: 08/15/16 18:02 Dose: 1 applic Warfarin Sodium (Coumadin) 5 mg PO 1800 [facility] Last Admin: 08/15/16 17:05 Dose: 5 mg Zinc Sulfate (Zinc Sulfate 220 Mg Cap) 220 mg PO DAILY [facility] Last Admin: 08/15/16 09:47 Dose: 220 mg - Labs Labs: 08/15/16 07:00 08/15/16 07:00 PT 26.5 Seconds (9.9-11.8) H 08/15/16 07:00 INR 2.45 (0.93-1.08) H 08/15/16 07:00 APTT 30.7 Seconds (23.7-30.8) 07/30/16 06:30 - Constitutional Appears: Non-toxic, No Acute Distress - Head Exam Head Exam: NORMAL INSPECTION - Neck Exam Neck Exam: absent: Lymphadenopathy, Meningismus - Respiratory Exam Respiratory Exam: Decreased Breath Sounds - Cardiovascular Exam Cardiovascular Exam: +S1, +S2 - GI/Abdominal Exam GI & Abdominal Exam: Soft. 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 with associated cord compression and lower extremity paralysis S/P neurosurgery for abscess drainage and laminectomy POD #37 Possible drug reaction to Rocephin Partial small bowel obstruction, clinically improved significant smoking history alcohol abuse obesity with BMI 40 Plan continue Merrem to complete 6 weeks of therapy; will check ESR, CRP next week Will continue to follow clinically
[2016-08-16] MEDS: Albuterol-Ipratrop 3 mg / 0.5 (3 ml) UD IH SCH ×3 (03:33→13:57)
[2016-08-16] MEDS: Meropenem 1g/NS 100mL IVPB 1 GM/100 ML PIGGYBACK IVPB SCH ×3 (05:32→22:11)
[2016-08-16 07:43] LABS: INR 2.35 (0.93-1.08); PROTHROMBIN TIME 25.4 Seconds (9.9-11.8)
[2016-08-16] MEDS: Pantoprazole 40 mg EC Tab PO SCH (09:42)
[2016-08-16] MEDS: Multivitamin With Minerals Tab PO SCH (09:42)
[2016-08-16] MEDS: Miconazole 2% Cream(30 gm) TOP SCH ×2 (09:43→18:11)
[2016-08-16] MEDS: Silver Sulfadiazine 1% Cream (20 gm) TOP SCH ×2 (09:43→18:10)
--- NOTE | 2016-08-16 11:59 | CP.PCM.PN ---
Subjective - Date & Time of Evaluation Date of Evaluation: 08/16/16 Time of Evaluation: 08:30 - Subjective Subjective: patient seen and examined in room 571. Patient is alert, awake and oriented. denies any chest pain, shortness of breath. Denies any abdominal pain, nausea, vomiting. Tolerating diet well. Still has some involuntary movements in the both lower extremities. Review of Systems - Constitutional Constitutional: absent: Fever, Chills - EENT Eyes: absent: Blurred Vision Nose/Mouth/Throat: absent: Nasal Congestion - Cardiovascular Cardiovascular: absent: Chest Pain, Chest Pain at Rest - Respiratory Respiratory: absent: Cough, Dyspnea, Dyspnea on Exertion - Gastrointestinal Gastrointestinal: absent: Abdominal Pain, Nausea, Vomiting - Musculoskeletal Additional comments: involuntary movements of both legs - Hematologic/Lymphatic Hematologic: absent: Easy Bleeding, Easy Bruising Objective - Vital Signs/Intake and Output Vital Signs (last 24 hours): Temp Pulse Resp BP Pulse Ox 98.2 F 85 20 125/85 96 08/16/16 08:00 08/16/16 09:42 08/16/16 08:00 08/16/16 09:42 08/16/16 08:00 Intake and Output: 08/16/16 08/16/16 06:59 18:59 Intake Total 620 Output Total 700 Balance -80 - Medications Medications: Current Medications Albuterol/Ipratropium (Duoneb 3 Mg/0.5 Mg (3 Ml) Ud) 3 ml IH [id number] [facility] Last Admin: 08/16/16 08:32 Dose: 3 ml Ascorbic Acid (Vitamin C 500 Mg Tab) 500 mg PO DAILY [facility] Last Admin: 08/16/16 09:42 Dose: 500 mg Baclofen (Lioresal) 20 mg PO TID [facility] Last Admin: 08/16/16 09:42 Dose: 20 mg Bisacodyl (Dulcolax) 5 mg PO DAILY PRN PRN Reason: Constipation Diphenhydramine HCl (Benadryl) 25 mg PO HS PRN PRN Reason: Insomnia Last Admin: 08/15/16 22:10 Dose: 25 mg Meropenem 1g/NS 100mL IVPB (Meropenem 1g/Ns 100ml Ivpb) 1 gm in 100 mls @ 100 mls/hr IVPB Q8 DONAL PRN Reason: Protocol Stop: 08/19/16 22:01 Last Admin: 08/16/16 05:32 Dose: 100 mls/hr Metoprolol Tartrate (Lopressor) 25 mg PO BID [facility] Last Admin: 08/16/16 09:42 Dose: 25 mg Miconazole Nitrate (Miconazole 2% Cream) 0 ea TOP BID [facility] Last Admin: 08/16/16 09:43 Dose: 1 applic Multivitamins/Minerals (Therapeutic-M Tab) 1 tab PO DAILY [facility] Last Admin: 08/16/16 09:42 Dose: 1 tab Nicotine (Nicoderm Cq) 1 patch TD DAILY [facility] Last Admin: 08/16/16 09:44 Dose: Not Given Ondansetron HCl (Zofran Inj) 4 mg IVP Q6H PRN PRN Reason: Nausea/Vomiting Pantoprazole Sodium (Protonix Ec Tab) 40 mg PO ACB [facility] Last Admin: 08/16/16 09:42 Dose: 40 mg Pramipexole Dihydrochloride (Mirapex) 0.25 mg PO TID [facility] Last Admin: 08/16/16 09:42 Dose: 0.25 mg Silver Sulfadiazine (Silvadene 1% 20 Gm) 0 ea TOP BID [facility] Last Admin: 08/16/16 09:43 Dose: 1 applic Warfarin Sodium (Coumadin) 5 mg PO 1800 [facility] Last Admin: 08/15/16 17:05 Dose: 5 mg Zinc Sulfate (Zinc Sulfate 220 Mg Cap) 220 mg PO DAILY [facility] Last Admin: 08/16/16 09:42 Dose: 220 mg - Labs Labs: 08/15/16 07:00 08/15/16 07:00 PT 25.4 Seconds (9.9-11.8) H 08/16/16 07:25 INR 2.35 (0.93-1.08) H 08/16/16 07:25 APTT 30.7 Seconds (23.7-30.8) 07/30/16 06:30 - Constitutional Appears: Well, Non-toxic - Head Exam Head Exam: NORMAL INSPECTION - Eye Exam Eye Exam: Normal appearance - ENT Exam ENT Exam: Mucous Membranes Moist - Neck Exam Neck Exam: Full ROM - Respiratory Exam Respiratory Exam: NORMAL BREATHING PATTERN - Cardiovascular Exam Cardiovascular Exam: REGULAR RHYTHM - GI/Abdominal Exam GI & Abdominal Exam: Soft, Normal Bowel Sounds. absent: Tenderness - Extremities Exam Extremities Exam: absent: Pedal Edema Additional comments: involuntary jerky movement of lower extremities. - Back Exam Back Exam: absent: CVA tenderness (L), CVA tenderness (R) - Neurological Exam Neurological Exam: Alert - Psychiatric Exam Psychiatric exam: Normal Affect - Skin Skin Exam: Normal Color Assessment and Plan - Assessment and Plan (Free Text) Assessment: Patient is a 51 year old male with no significant past medical history is 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 1. Epidural space abscess s/p lamenectomy T2-T4 on 07/07/16 Continue Meropenem per ID on Tramadol prn for pain 2. 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 Boots in place Baclofen 20 mg PO TID Continue Mirapex. 3. R LE DVT s/p IVC filter placed Continue coumadin 5 mg today. INR is therapeutic. 4. Neurogenic bowel vs. ileus: resolved. Full diet but will monitor closely Dulcolax PO and RC PRN 5. Neurogenic bladder Mackenzie in place, draining herb urine 6. multiple stage 2 pressure ulcer on sacrum and buttock improving air mattress and continue to reposition q2H continue multivit, zinc, vitamin C PO Wound care is following 7.Prophylaxis GI ppx- Protonix DVT ppx- coumadin
[2016-08-16] MEDS: DiphenhydrAMINE 12.5 mg/5 ml LIQ UD (5 ml) PO PRN (22:11)
[2016-08-17] MEDS: Albuterol-Ipratrop 3 mg / 0.5 (3 ml) UD IH SCH ×5 (01:21→20:00)
[2016-08-17] MEDS: Meropenem 1g/NS 100mL IVPB 1 GM/100 ML PIGGYBACK IVPB SCH ×3 (05:25→21:41)
[2016-08-17 07:30] LABS: HEMOGLOBIN 11.4 gm/dL (14.0-18.0); MEAN CELL VOLUME 88.3 fL (80.0-105.0); MEAN CORPUSCULAR HEMOGLOBIN 29.1 pg (25.0-35.0); MEAN CORPUSCULAR HGB CONC 32.9 g/dl (31.0-37.0); MEAN PLATELET VOLUME 11.3 fl (7.0-11.0); RBC 3.92 10^6/uL (3.5-6.1); RED CELL DISTRIBUTION WIDTH 13.8 % (11.5-14.5); WHITE BLOOD COUNT 5.4 10^3/ul (4.5-11.0)
[2016-08-17 07:36] LABS: INR 2.57 (0.93-1.08); PROTHROMBIN TIME 27.8 Seconds (9.9-11.8)
[2016-08-17 07:42] LABS: BLOOD UREA NITROGEN 9 mg/dL (7-21); CALCIUM 9.3 mg/dL (8.4-10.5); GFR AFRICAN-AMERICAN > 60; GFR NON-AFRICAN AMERICAN > 60
[2016-08-17] MEDS: Pantoprazole 40 mg EC Tab PO SCH (08:26)
[2016-08-17] MEDS ORDERED: Potassium Chloride 20 mEq ER Tab PO ONE (08:56)
[2016-08-17] MEDS: Miconazole 2% Cream(30 gm) TOP SCH ×2 (10:30→18:21)
[2016-08-17] MEDS: Silver Sulfadiazine 1% Cream (20 gm) TOP SCH ×2 (10:40→18:21)
[2016-08-17] MEDS: Multivitamin With Minerals Tab PO SCH (11:40)
--- NOTE | 2016-08-17 11:40 | CP.PCM.PN ---
<Keri Guzman - Last Filed: 08/17/16 11:36> Subjective - Date & Time of Evaluation Date of Evaluation: 08/17/16 Time of Evaluation: 11:37 - Subjective Subjective: HOSPITALISTS PROGRESS NOTE Pt is seen and examined at bedside. No acute events overnight. Patient states that he is having regular BM and is tolerating diet. Patient continues to have fasiculations in LE all the way to lower abdomen. Regalan is discontinued. It is explained to patient that since regalan is d/trinity, if he feels nauseous to ask for zofran. Otherwise, denies having any CP, SOB, abd pain, N/V/D/C. Objective - Vital Signs/Intake and Output Vital Signs (last 24 hours): Temp Pulse Resp BP Pulse Ox 97.9 F 63 19 123/83 98 08/17/16 08:00 08/17/16 08:00 08/17/16 08:00 08/17/16 08:00 08/17/16 08:00 Intake and Output: 08/17/16 08/17/16 06:59 18:59 Intake Total 1740 Output Total 3900 Balance -2160 - Medications Medications: Current Medications Albuterol/Ipratropium (Duoneb 3 Mg/0.5 Mg (3 Ml) Ud) 3 ml IH [id number] [facility] Last Admin: 08/17/16 07:44 Dose: 3 ml Ascorbic Acid (Vitamin C 500 Mg Tab) 500 mg PO DAILY [facility] Last Admin: 08/16/16 09:42 Dose: 500 mg Baclofen (Lioresal) 20 mg PO TID [facility] Last Admin: 08/16/16 18:11 Dose: 20 mg Bisacodyl (Dulcolax) 5 mg PO DAILY PRN PRN Reason: Constipation Diphenhydramine HCl (Benadryl) 25 mg PO HS PRN PRN Reason: Insomnia Last Admin: 08/16/16 22:11 Dose: 25 mg Meropenem 1g/NS 100mL IVPB (Meropenem 1g/Ns 100ml Ivpb) 1 gm in 100 mls @ 100 mls/hr IVPB Q8 [facility] PRN Reason: Protocol Stop: 08/19/16 22:01 Last Admin: 08/17/16 05:25 Dose: 100 mls/hr Metoprolol Tartrate (Lopressor) 25 mg PO BID [facility] Last Admin: 08/16/16 18:07 Dose: Not Given Miconazole Nitrate (Miconazole 2% Cream) 0 ea TOP BID [facility] Last Admin: 08/16/16 18:11 Dose: 1 applic Multivitamins/Minerals (Therapeutic-M Tab) 1 tab PO DAILY [facility] Last Admin: 08/16/16 09:42 Dose: 1 tab Nicotine (Nicoderm Cq) 1 patch TD DAILY [facility] Last Admin: 08/16/16 09:44 Dose: Not Given Ondansetron HCl (Zofran Inj) 4 mg IVP Q6H PRN PRN Reason: Nausea/Vomiting Pantoprazole Sodium (Protonix Ec Tab) 40 mg PO ACB [facility] Last Admin: 08/17/16 08:26 Dose: 40 mg Pramipexole Dihydrochloride (Mirapex) 0.25 mg PO TID [facility] Last Admin: 08/16/16 18:11 Dose: 0.25 mg Silver Sulfadiazine (Silvadene 1% 20 Gm) 0 ea TOP BID [facility] Last Admin: 08/16/16 18:10 Dose: 1 applic Warfarin Sodium (Coumadin) 5 mg PO 1800 [facility] Last Admin: 08/16/16 18:11 Dose: 5 mg Zinc Sulfate (Zinc Sulfate 220 Mg Cap) 220 mg PO DAILY [facility] Last Admin: 08/16/16 09:42 Dose: 220 mg - Labs Labs: 08/17/16 07:00 08/17/16 07:00 PT 27.8 Seconds (9.9-11.8) H 08/17/16 07:00 INR 2.57 (0.93-1.08) H 08/17/16 07:00 APTT 30.7 Seconds (23.7-30.8) 07/30/16 06:30 - Constitutional Appears: Non-toxic, No Acute Distress - Head Exam Head Exam: ATRAUMATIC - ENT Exam ENT Exam: Mucous Membranes Moist - Respiratory Exam Respiratory Exam: Clear to Ausculation Bilateral, NORMAL BREATHING PATTERN. absent: Rales, Rhonchi, Wheezes - Cardiovascular Exam Cardiovascular Exam: REGULAR RHYTHM, +S1, +S2. absent: Gallop, Rubs, Murmur - GI/Abdominal Exam GI & Abdominal Exam: Soft, Normal Bowel Sounds. 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 1. Epidural space abscess s/p lamenectomy T2-T4 on 07/07/16 Continue Meropenem per ID on Tramadol prn for pain 2. 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 Boots in place Baclofen 20 mg PO TID Continue Mirapex Regalan is discontinued 3. R LE DVT s/p IVC filter placed Continue coumadin 5 mg today. INR is therapeutic. Will check INR and labs every other day 4. Neurogenic bowel vs. ileus: resolved. Full diet but will monitor closely Dulcolax PO and RC PRN 5. Neurogenic bladder Haque in place, draining herb urine 6. multiple stage 2 pressure ulcer on sacrum and buttock improving air mattress and continue to reposition q2H continue multivit, zinc, vitamin C PO Wound care is following 7.Prophylaxis GI ppx- Protonix DVT ppx- coumadin Case discussed with attending Dr. Piedra <Tobin Piedra - Last Filed: 08/17/16 13:32> Objective - Vital Signs/Intake and Output Vital Signs (last 24 hours): Temp Pulse Resp BP Pulse Ox 97.9 F 80 19 130/82 98 08/17/16 08:00 08/17/16 11:40 08/17/16 08:00 08/17/16 11:40 08/17/16 08:00 Intake and Output: 08/17/16 08/17/16 06:59 18:59 Intake Total 1740 Output Total 3900 Balance -2160 - Medications Medications: Current Medications Albuterol/Ipratropium (Duoneb 3 Mg/0.5 Mg (3 Ml) Ud) 3 ml IH [id number] [facility] Last Admin: 08/17/16 07:44 Dose: 3 ml Ascorbic Acid (Vitamin C 500 Mg Tab) 500 mg PO DAILY [facility] Last Admin: 08/17/16 11:40 Dose: 500 mg Baclofen (Lioresal) 20 mg PO TID [facility] Last Admin: 08/17/16 11:40 Dose: 20 mg Bisacodyl (Dulcolax) 5 mg PO DAILY PRN PRN Reason: Constipation Diphenhydramine HCl (Benadryl) 25 mg PO HS PRN PRN Reason: Insomnia Last Admin: 08/16/16 22:11 Dose: 25 mg Meropenem 1g/NS 100mL IVPB (Meropenem 1g/Ns 100ml Ivpb) 1 gm in 100 mls @ 100 mls/hr IVPB Q8 [facility] PRN Reason: Protocol Stop: 08/19/16 22:01 Last Admin: 08/17/16 05:25 Dose: 100 mls/hr Metoprolol Tartrate (Lopressor) 25 mg PO BID [facility] Last Admin: 08/17/16 11:40 Dose: 25 mg Miconazole Nitrate (Miconazole 2% Cream) 0 ea TOP BID [facility] Last Admin: 08/17/16 10:30 Dose: 1 applic Multivitamins/Minerals (Therapeutic-M Tab) 1 tab PO DAILY [facility] Last Admin: 08/17/16 11:40 Dose: 1 tab Nicotine (Nicoderm Cq) 1 patch TD DAILY [facility] Last Admin: 08/17/16 10:30 Dose: Not Given Ondansetron HCl (Zofran Inj) 4 mg IVP Q6H PRN PRN Reason: Nausea/Vomiting Pantoprazole Sodium (Protonix Ec Tab) 40 mg PO ACB [facility] Last Admin: 08/17/16 08:26 Dose: 40 mg Pramipexole Dihydrochloride (Mirapex) 0.25 mg PO TID [facility] Last Admin: 08/17/16 11:44 Dose: 0.25 mg Silver Sulfadiazine (Silvadene 1% 20 Gm) 0 ea TOP BID [facility] Last Admin: 08/17/16 10:40 Dose: 1 applic Warfarin Sodium (Coumadin) 5 mg PO 1800 [facility] Last Admin: 08/16/16 18:11 Dose: 5 mg Zinc Sulfate (Zinc Sulfate 220 Mg Cap) 220 mg PO DAILY [facility] Last Admin: 08/17/16 11:40 Dose: 220 mg - Labs Labs: 08/17/16 07:00 08/17/16 07:00 PT 27.8 Seconds (9.9-11.8) H 08/17/16 07:00 INR 2.57 (0.93-1.08) H 08/17/16 07:00 APTT 30.7 Seconds (23.7-30.8) 07/30/16 06:30 Attending/Attestation - Attestation I have personally seen and examined this patient.: Yes I have fully participated in the care of the patient.: Yes I have reviewed all pertinent clinical information, including history, physical exam and plan: Yes Notes (Text): 08/17/16 13:32 attending note; I have seen and examined the patient at bedside. This is a 51 year old male with history of substance abuse (snorts cocaine), tobacco, alcohol use who got admitted for evaluation of back pain and found to have epidural abscess T1-T5, osteomyelitis, urinary retention and acute RLE DVT s/p IVC filter on coumadin. He underwent emergent laminectomy and epidural abscess was drained. He remains on meropenem. He has involuntary spasm of Lower extremities. continue baclofen 20 mg po bid. Reglan discontinued. started on Mirapex. Case discussed with neurology Dr. Koch in detail. He has haque catheter for neurogenic bladder. Advised frequent turning. Continue air mattress. continue wound care. As per nurses, wound are getting better. INR is therapeutic. continue Coumadin. Pending placement. Case discussed with sample case porter and social work specialist in detail.
[2016-08-17] MEDS: DiphenhydrAMINE 12.5 mg/5 ml LIQ UD (5 ml) PO PRN (21:41)
[2016-08-18] MEDS: Albuterol-Ipratrop 3 mg / 0.5 (3 ml) UD IH SCH ×5 (02:52→20:06)
[2016-08-18] MEDS: Meropenem 1g/NS 100mL IVPB 1 GM/100 ML PIGGYBACK IVPB SCH ×3 (05:29→21:47)
[2016-08-18] MEDS: Pantoprazole 40 mg EC Tab PO SCH (08:11)
[2016-08-18] MEDS: Multivitamin With Minerals Tab PO SCH (11:04)
[2016-08-18] MEDS: Silver Sulfadiazine 1% Cream (20 gm) TOP SCH ×2 (11:04→18:20)
[2016-08-18] MEDS: Miconazole 2% Cream(30 gm) TOP SCH ×2 (11:04→18:20)
[2016-08-18 11:21] LABS: MEAN CELL VOLUME 88.9 fL (80.0-105.0); MEAN CORPUSCULAR HEMOGLOBIN 29.6 pg (25.0-35.0); MEAN CORPUSCULAR HGB CONC 33.3 g/dl (31.0-37.0); MEAN PLATELET VOLUME 11.6 fl (7.0-11.0); RBC 4.05 10^6/uL (3.5-6.1); RED CELL DISTRIBUTION WIDTH 13.7 % (11.5-14.5); WHITE BLOOD COUNT 5.1 10^3/ul (4.5-11.0)
--- NOTE | 2016-08-18 15:29 | CP.PCM.PN ---
<Keri Guzman - Last Filed: 08/18/16 15:26> Subjective - Date & Time of Evaluation Date of Evaluation: 08/18/16 Time of Evaluation: 15:26 - Subjective Subjective: HOSPITALISTS PROGRESS NOTE Pt is seen and examined at bedside. Patient developed blood tinged urine yesterday afternoon. Otherwise, no acute events overnight. Pt denies having any CP, SOB, abd pain, N/V. Patient is tolerating diet and having regular BMs. Patient has haque in place which is draining dark blood tinged urine. Objective - Vital Signs/Intake and Output Vital Signs (last 24 hours): Temp Pulse Resp BP Pulse Ox 98.1 F 64 18 125/83 98 08/18/16 07:30 08/18/16 11:05 08/18/16 07:30 08/18/16 11:05 08/18/16 07:30 Intake and Output: 08/18/16 08/18/16 06:59 18:59 Intake Total 1080 600 Output Total 1200 400 Balance -120 200 - Medications Medications: Current Medications Albuterol/Ipratropium (Duoneb 3 Mg/0.5 Mg (3 Ml) Ud) 3 ml IH [id number] [facility] Last Admin: 08/18/16 14:01 Dose: 3 ml Ascorbic Acid (Vitamin C 500 Mg Tab) 500 mg PO DAILY [facility] Last Admin: 08/18/16 11:03 Dose: 500 mg Baclofen (Lioresal) 20 mg PO TID [facility] Last Admin: 08/18/16 13:33 Dose: 20 mg Bisacodyl (Dulcolax) 5 mg PO DAILY PRN PRN Reason: Constipation Meropenem 1g/NS 100mL IVPB (Meropenem 1g/Ns 100ml Ivpb) 1 gm in 100 mls @ 100 mls/hr IVPB Q8 [facility] PRN Reason: Protocol Stop: 08/19/16 22:01 Last Admin: 08/18/16 13:33 Dose: 100 mls/hr Metoprolol Tartrate (Lopressor) 25 mg PO BID [facility] Last Admin: 08/18/16 11:05 Dose: 25 mg Miconazole Nitrate (Miconazole 2% Cream) 0 ea TOP BID [facility] Last Admin: 08/18/16 11:04 Dose: 1 applic Multivitamins/Minerals (Therapeutic-M Tab) 1 tab PO DAILY [facility] Last Admin: 08/18/16 11:04 Dose: 1 tab Nicotine (Nicoderm Cq) 1 patch TD DAILY [facility] Last Admin: 08/18/16 11:04 Dose: Not Given Ondansetron HCl (Zofran Inj) 4 mg IVP Q6H PRN PRN Reason: Nausea/Vomiting Pantoprazole Sodium (Protonix Ec Tab) 40 mg PO ACB [facility] Last Admin: 08/18/16 08:11 Dose: 40 mg Pramipexole Dihydrochloride (Mirapex) 0.25 mg PO TID [facility] Last Admin: 08/18/16 13:33 Dose: 0.25 mg Silver Sulfadiazine (Silvadene 1% 20 Gm) 0 ea TOP BID [facility] Last Admin: 08/18/16 11:04 Dose: 1 applic Warfarin Sodium (Coumadin) 5 mg PO 1800 [facility] Last Admin: 08/17/16 18:21 Dose: 5 mg Zinc Sulfate (Zinc Sulfate 220 Mg Cap) 220 mg PO DAILY [facility] Last Admin: 08/18/16 11:03 Dose: 220 mg - Labs Labs: 08/18/16 11:00 08/17/16 07:00 PT 27.8 Seconds (9.9-11.8) H 08/17/16 07:00 INR 2.57 (0.93-1.08) H 08/17/16 07:00 APTT 30.7 Seconds (23.7-30.8) 07/30/16 06:30 - Constitutional Appears: Non-toxic, No Acute Distress - Head Exam Head Exam: ATRAUMATIC - Eye Exam Eye Exam: EOMI - ENT Exam ENT Exam: Mucous Membranes Moist - Respiratory Exam Respiratory Exam: Clear to Ausculation Bilateral. absent: Rales, Rhonchi, Wheezes - Cardiovascular Exam Cardiovascular Exam: REGULAR RHYTHM, +S1, +S2 - GI/Abdominal Exam GI & Abdominal Exam: Soft, Normal Bowel Sounds. absent: Distended, Firm, Guarding, Rigid, Tenderness - Extremities Exam Extremities Exam: absent: Pedal Edema, Tenderness - Neurological Exam Neurological Exam: Alert, Awake, Oriented x3 - Psychiatric Exam Psychiatric exam: Normal Affect, Normal Mood - Skin Skin Exam: Dry, Intact, Normal Color, Warm Assessment and Plan - Assessment and Plan (Free Text) Assessment: Patient is a 51 year old male with no significant past medical history is s/p T2 -T4 lamenectomy on 4/10/17 with paralysis of LE, US of LE showed R LE DVT s/p IVC filter and warfarin. 1. 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 Boots in place Baclofen 20 mg PO TID Continue Mirapex Regalan is discontinued 3. R LE DVT s/p IVC filter placed Continue coumadin 5 mg today. INR is therapeutic. Will check INR and labs every other day 4. Neurogenic bowel vs. ileus: resolved. Full diet but will monitor closely Dulcolax PO and RC PRN 5. Neurogenic bladder Haque in place, draining herb urine 6. multiple stage 2 pressure ulcer on sacrum and buttock improving air mattress and continue to reposition q2H continue multivit, zinc, vitamin C PO Wound care is following 7. Hematuria Continue to monitor Urology, Dr. Iqbal is reconsulted Hgb is stable from yesterday Prophylaxis GI ppx- Protonix DVT ppx- coumadin Case discussed with attending Dr. Marc <Tutu Marc - Last Filed: 08/18/16 17:32> Objective - Vital Signs/Intake and Output Vital Signs (last 24 hours): Temp Pulse Resp BP Pulse Ox 98.1 F 64 18 125/83 98 08/18/16 07:30 08/18/16 11:05 08/18/16 07:30 08/18/16 11:05 08/18/16 07:30 Intake and Output: 08/18/16 08/18/16 06:59 18:59 Intake Total 1080 600 Output Total 1200 400 Balance -120 200 - Medications Medications: Current Medications Albuterol/Ipratropium (Duoneb 3 Mg/0.5 Mg (3 Ml) Ud) 3 ml IH [id number] [facility] Last Admin: 08/18/16 14:01 Dose: 3 ml Ascorbic Acid (Vitamin C 500 Mg Tab) 500 mg PO DAILY [facility] Last Admin: 08/18/16 11:03 Dose: 500 mg Baclofen (Lioresal) 20 mg PO TID [facility] Last Admin: 08/18/16 13:33 Dose: 20 mg Bisacodyl (Dulcolax) 5 mg PO DAILY PRN PRN Reason: Constipation Meropenem 1g/NS 100mL IVPB (Meropenem 1g/Ns 100ml Ivpb) 1 gm in 100 mls @ 100 mls/hr IVPB Q8 [facility] PRN Reason: Protocol Stop: 08/19/16 22:01 Last Admin: 08/18/16 13:33 Dose: 100 mls/hr Metoprolol Tartrate (Lopressor) 25 mg PO BID [facility] Last Admin: 08/18/16 11:05 Dose: 25 mg Miconazole Nitrate (Miconazole 2% Cream) 0 ea TOP BID [facility] Last Admin: 08/18/16 11:04 Dose: 1 applic Multivitamins/Minerals (Therapeutic-M Tab) 1 tab PO DAILY [facility] Last Admin: 08/18/16 11:04 Dose: 1 tab Nicotine (Nicoderm Cq) 1 patch TD DAILY [facility] Last Admin: 08/18/16 11:04 Dose: Not Given Ondansetron HCl (Zofran Inj) 4 mg IVP Q6H PRN PRN Reason: Nausea/Vomiting Pantoprazole Sodium (Protonix Ec Tab) 40 mg PO ACB [facility] Last Admin: 08/18/16 08:11 Dose: 40 mg Pramipexole Dihydrochloride (Mirapex) 0.25 mg PO TID [facility] Last Admin: 08/18/16 13:33 Dose: 0.25 mg Silver Sulfadiazine (Silvadene 1% 20 Gm) 0 ea TOP BID [facility] Last Admin: 08/18/16 11:04 Dose: 1 applic Warfarin Sodium (Coumadin) 5 mg PO 1800 [facility] Last Admin: 08/17/16 18:21 Dose: 5 mg Zinc Sulfate (Zinc Sulfate 220 Mg Cap) 220 mg PO DAILY [facility] Last Admin: 08/18/16 11:03 Dose: 220 mg - Labs Labs: 08/18/16 11:00 08/17/16 07:00 PT 27.8 Seconds (9.9-11.8) H 08/17/16 07:00 INR 2.57 (0.93-1.08) H 08/17/16 07:00 APTT 30.7 Seconds (23.7-30.8) 07/30/16 06:30 Attending/Attestation - Attestation I have personally seen and examined this patient.: Yes I have fully participated in the care of the patient.: Yes I have reviewed all pertinent clinical information, including history, physical exam and plan: Yes Notes (Text): I have seen and examined the patient at bedside.Agree with the above note with the following additions/ exceptions: This is a 51 year old male with history of substance abuse (snorts cocaine), tobacco, alcohol use who got admitted for evaluation of back pain and found to have epidural abscess T1-T5, osteomyelitis , urinary retention and acute RLE DVT s/p IVC filter on coumadin. He underwent emergent laminectomy and epidural abscess was drained. He remains on meropenem. He has involuntary spasm of Lower extremities which appears to be getting better. Continue baclofen 20 mg po bid and mirapex. Reglan was discontinued. He has haque catheter for neurogenic bladder. Today urine was noticed to be blood tinged. His INR is therapeutic. Advised to flush the haque. Will discuss with urologist. Continue frequent turning, air mattress and wound care. As per nurses, wound are getting better. Pending placement. Dr Tutu Marc
[2016-08-18 17:53] LABS: INR 2.6 (0.93-1.08); PROTHROMBIN TIME 28.1 Seconds (9.9-11.8)
--- NOTE | 2016-08-18 19:18 | CP.PCM.PN ---
Subjective - Date & Time of Evaluation Date of Evaluation: 08/18/16 Time of Evaluation: 10:25 - Subjective Subjective: Comfortable in bed, not in distress. Objective - Vital Signs/Intake and Output Vital Signs (last 24 hours): Temp Pulse Resp BP Pulse Ox 98.1 F 60 18 135/74 98 08/18/16 07:30 08/18/16 18:20 08/18/16 07:30 08/18/16 18:20 08/18/16 07:30 Intake and Output: 08/18/16 08/19/16 18:59 06:59 Intake Total 600 Output Total 400 Balance 200 - Medications Medications: Current Medications Albuterol/Ipratropium (Duoneb 3 Mg/0.5 Mg (3 Ml) Ud) 3 ml IH [id number] [facility] Last Admin: 08/18/16 14:01 Dose: 3 ml Ascorbic Acid (Vitamin C 500 Mg Tab) 500 mg PO DAILY [facility] Last Admin: 08/18/16 11:03 Dose: 500 mg Baclofen (Lioresal) 20 mg PO TID [facility] Last Admin: 08/18/16 18:20 Dose: 20 mg Bisacodyl (Dulcolax) 5 mg PO DAILY PRN PRN Reason: Constipation Meropenem 1g/NS 100mL IVPB (Meropenem 1g/Ns 100ml Ivpb) 1 gm in 100 mls @ 100 mls/hr IVPB Q8 [facility] PRN Reason: Protocol Stop: 08/19/16 22:01 Last Admin: 08/18/16 13:33 Dose: 100 mls/hr Metoprolol Tartrate (Lopressor) 25 mg PO BID [facility] Last Admin: 08/18/16 18:20 Dose: 25 mg Miconazole Nitrate (Miconazole 2% Cream) 0 ea TOP BID [facility] Last Admin: 08/18/16 18:20 Dose: 1 applic Multivitamins/Minerals (Therapeutic-M Tab) 1 tab PO DAILY [facility] Last Admin: 08/18/16 11:04 Dose: 1 tab Nicotine (Nicoderm Cq) 1 patch TD DAILY [facility] Last Admin: 08/18/16 11:04 Dose: Not Given Ondansetron HCl (Zofran Inj) 4 mg IVP Q6H PRN PRN Reason: Nausea/Vomiting Pantoprazole Sodium (Protonix Ec Tab) 40 mg PO ACB [facility] Last Admin: 08/18/16 08:11 Dose: 40 mg Pramipexole Dihydrochloride (Mirapex) 0.25 mg PO TID [facility] Last Admin: 08/18/16 18:19 Dose: 0.25 mg Silver Sulfadiazine (Silvadene 1% 20 Gm) 0 ea TOP BID [facility] Last Admin: 08/18/16 18:20 Dose: 1 applic Warfarin Sodium (Coumadin) 5 mg PO 1800 [facility] Last Admin: 08/18/16 18:19 Dose: 5 mg Zinc Sulfate (Zinc Sulfate 220 Mg Cap) 220 mg PO DAILY [facility] Last Admin: 08/18/16 11:03 Dose: 220 mg - Labs Labs: 08/18/16 11:00 08/17/16 07:00 PT 28.1 Seconds (9.9-11.8) H 08/18/16 16:57 INR 2.60 (0.93-1.08) H 08/18/16 16:57 APTT 30.7 Seconds (23.7-30.8) 07/30/16 06:30 - Constitutional Appears: Non-toxic, No Acute Distress - Head Exam Head Exam: NORMAL INSPECTION - Respiratory Exam Respiratory Exam: Decreased Breath Sounds - Cardiovascular Exam Cardiovascular Exam: +S1, +S2 - GI/Abdominal Exam GI & Abdominal Exam: Soft. 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 with associated cord compression and lower extremity paralysis S/P neurosurgery for abscess drainage and laminectomy POD #41 Possible drug reaction to Rocephin Partial small bowel obstruction, clinically improved significant smoking history alcohol abuse obesity with BMI 40 Plan continue Merrem to complete at least 6 weeks of therapy; CRP still elevated - will monitor ESR, CRP weekly and continue antibiotics Will continue to follow clinically
[2016-08-19] MEDS: Albuterol-Ipratrop 3 mg / 0.5 (3 ml) UD IH SCH ×4 (01:40→20:45)
[2016-08-19] MEDS: Meropenem 1g/NS 100mL IVPB 1 GM/100 ML PIGGYBACK IVPB SCH ×3 (06:18→22:01)
[2016-08-19 07:18] LABS: HEMOGLOBIN 11.7 gm/dL (14.0-18.0); MEAN CELL VOLUME 87.8 fL (80.0-105.0); MEAN CORPUSCULAR HEMOGLOBIN 29.2 pg (25.0-35.0); MEAN CORPUSCULAR HGB CONC 33.2 g/dl (31.0-37.0); MEAN PLATELET VOLUME 11.5 fl (7.0-11.0); RBC 4.01 10^6/uL (3.5-6.1); RED CELL DISTRIBUTION WIDTH 13.7 % (11.5-14.5); WHITE BLOOD COUNT 5.4 10^3/ul (4.5-11.0)
[2016-08-19 07:28] LABS: BLOOD UREA NITROGEN 11 mg/dL (7-21); CALCIUM 9.1 mg/dL (8.4-10.5); GFR AFRICAN-AMERICAN > 60; GFR NON-AFRICAN AMERICAN > 60
[2016-08-19 07:33] LABS: INR 2.5 (0.93-1.08)
[2016-08-19] MEDS: Pantoprazole 40 mg EC Tab PO SCH (08:11)
[2016-08-19] MEDS: Miconazole 2% Cream(30 gm) TOP SCH ×2 (09:28→17:38)
[2016-08-19] MEDS: Silver Sulfadiazine 1% Cream (20 gm) TOP SCH ×2 (09:29→17:38)
[2016-08-19] MEDS: Multivitamin With Minerals Tab PO SCH (09:30)
--- NOTE | 2016-08-19 14:29 | CP.PCM.PN ---
<Keri Guzman - Last Filed: 08/19/16 14:25> Subjective - Date & Time of Evaluation Date of Evaluation: 08/19/16 Time of Evaluation: 14:26 - Subjective Subjective: HOSPITALISTS PROGRESS NOTE Pt is seen and examined at bedside. No acute events overnight. Patient continues ot have blood tinged urine in haque. Otherwise, he denies having any CP, SOb, abd pain, N/V/D/C. Patient is resting comfortably. he si tolerating diet and having regular bowel movements. Objective - Vital Signs/Intake and Output Vital Signs (last 24 hours): Temp Pulse Resp BP Pulse Ox 98.4 F 65 20 118/70 97 08/19/16 08:15 08/19/16 09:28 08/19/16 08:15 08/19/16 09:28 08/19/16 08:15 Intake and Output: 08/19/16 08/19/16 06:59 18:59 Intake Total 600 Output Total 540 Balance 60 - Medications Medications: Current Medications Albuterol/Ipratropium (Duoneb 3 Mg/0.5 Mg (3 Ml) Ud) 3 ml IH [id number] [facility] Last Admin: 08/19/16 13:30 Dose: 3 ml Ascorbic Acid (Vitamin C 500 Mg Tab) 500 mg PO DAILY [facility] Last Admin: 08/19/16 09:30 Dose: 500 mg Baclofen (Lioresal) 20 mg PO TID [facility] Last Admin: 08/19/16 13:29 Dose: 20 mg Bisacodyl (Dulcolax) 5 mg PO DAILY PRN PRN Reason: Constipation Meropenem 1g/NS 100mL IVPB (Meropenem 1g/Ns 100ml Ivpb) 1 gm in 100 mls @ 100 mls/hr IVPB Q8 [facility] PRN Reason: Protocol Stop: 08/19/16 22:01 Last Admin: 08/19/16 13:30 Dose: 100 mls/hr Metoprolol Tartrate (Lopressor) 25 mg PO BID [facility] Last Admin: 08/19/16 09:28 Dose: 25 mg Miconazole Nitrate (Miconazole 2% Cream) 0 ea TOP BID [facility] Last Admin: 08/19/16 09:28 Dose: 1 applic Multivitamins/Minerals (Therapeutic-M Tab) 1 tab PO DAILY [facility] Last Admin: 08/19/16 09:30 Dose: 1 tab Nicotine (Nicoderm Cq) 1 patch TD DAILY [facility] Last Admin: 08/19/16 09:29 Dose: Not Given Ondansetron HCl (Zofran Inj) 4 mg IVP Q6H PRN PRN Reason: Nausea/Vomiting Pantoprazole Sodium (Protonix Ec Tab) 40 mg PO ACB [facility] Last Admin: 08/19/16 08:11 Dose: 40 mg Pramipexole Dihydrochloride (Mirapex) 0.25 mg PO TID [facility] Last Admin: 08/19/16 13:30 Dose: 0.25 mg Silver Sulfadiazine (Silvadene 1% 20 Gm) 0 ea TOP BID [facility] Last Admin: 08/19/16 09:29 Dose: 1 applic Warfarin Sodium (Coumadin) 5 mg PO 1800 [facility] Last Admin: 08/18/16 18:19 Dose: 5 mg Zinc Sulfate (Zinc Sulfate 220 Mg Cap) 220 mg PO DAILY [facility] Last Admin: 08/19/16 09:30 Dose: 220 mg - Labs Labs: 08/19/16 06:55 08/19/16 06:55 PT 27.0 Seconds (9.9-11.8) H 08/19/16 06:55 INR 2.50 (0.93-1.08) H 08/19/16 06:55 APTT 30.7 Seconds (23.7-30.8) 07/30/16 06:30 - Constitutional Appears: Non-toxic, No Acute Distress - Head Exam Head Exam: ATRAUMATIC - ENT Exam ENT Exam: Mucous Membranes Moist - Respiratory Exam Respiratory Exam: Clear to Ausculation Bilateral. absent: Rales, Rhonchi, Wheezes - Cardiovascular Exam Cardiovascular Exam: REGULAR RHYTHM, +S1, +S2. absent: Gallop, Rubs, Murmur - GI/Abdominal Exam GI & Abdominal Exam: Soft, Normal Bowel Sounds. 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 1. 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 Boots in place Baclofen 20 mg PO TID Continue Mirapex 3. R LE DVT s/p IVC filter placed Continue coumadin 5 mg today. INR is therapeutic. Will check INR and labs every other day. will continue to monitor for bleeding 4. Neurogenic bowel vs. ileus: resolved. Full diet but will monitor closely Dulcolax PO and RC PRN 5. Neurogenic bladder Haque in place, draining herb urine 6. multiple stage 2 pressure ulcer on sacrum and buttock improving air mattress and continue to reposition q2H continue multivit, zinc, vitamin C PO Wound care is following 7. Hematuria Continue to monitor Urology, Dr. Iqbal is reconsulted. Awaiting recs Hgb is stable from yesterday Prophylaxis GI ppx- Protonix DVT ppx- coumadin Case discussed with attending Dr. Marc <Tutu Marc B - Last Filed: 08/19/16 16:23> Objective - Vital Signs/Intake and Output Vital Signs (last 24 hours): Temp Pulse Resp BP Pulse Ox 98.4 F 65 20 118/70 97 08/19/16 08:15 08/19/16 09:28 08/19/16 08:15 08/19/16 09:28 08/19/16 08:15 Intake and Output: 08/19/16 08/19/16 06:59 18:59 Intake Total 600 Output Total 540 Balance 60 - Medications Medications: Current Medications Albuterol/Ipratropium (Duoneb 3 Mg/0.5 Mg (3 Ml) Ud) 3 ml IH [id number] [facility] Last Admin: 08/19/16 13:30 Dose: 3 ml Ascorbic Acid (Vitamin C 500 Mg Tab) 500 mg PO DAILY [facility] Last Admin: 08/19/16 09:30 Dose: 500 mg Baclofen (Lioresal) 20 mg PO TID [facility] Last Admin: 08/19/16 13:29 Dose: 20 mg Bisacodyl (Dulcolax) 5 mg PO DAILY PRN PRN Reason: Constipation Meropenem 1g/NS 100mL IVPB (Meropenem 1g/Ns 100ml Ivpb) 1 gm in 100 mls @ 100 mls/hr IVPB Q8 [facility] PRN Reason: Protocol Stop: 08/19/16 22:01 Last Admin: 08/19/16 13:30 Dose: 100 mls/hr Metoprolol Tartrate (Lopressor) 25 mg PO BID [facility] Last Admin: 08/19/16 09:28 Dose: 25 mg Miconazole Nitrate (Miconazole 2% Cream) 0 ea TOP BID [facility] Last Admin: 08/19/16 09:28 Dose: 1 applic Multivitamins/Minerals (Therapeutic-M Tab) 1 tab PO DAILY [facility] Last Admin: 08/19/16 09:30 Dose: 1 tab Nicotine (Nicoderm Cq) 1 patch TD DAILY [facility] Last Admin: 08/19/16 09:29 Dose: Not Given Ondansetron HCl (Zofran Inj) 4 mg IVP Q6H PRN PRN Reason: Nausea/Vomiting Pantoprazole Sodium (Protonix Ec Tab) 40 mg PO ACB [facility] Last Admin: 08/19/16 08:11 Dose: 40 mg Pramipexole Dihydrochloride (Mirapex) 0.25 mg PO TID [facility] Last Admin: 08/19/16 13:30 Dose: 0.25 mg Silver Sulfadiazine (Silvadene 1% 20 Gm) 0 ea TOP BID [facility] Last Admin: 08/19/16 09:29 Dose: 1 applic Warfarin Sodium (Coumadin) 5 mg PO 1800 [facility] Last Admin: 08/18/16 18:19 Dose: 5 mg Zinc Sulfate (Zinc Sulfate 220 Mg Cap) 220 mg PO DAILY [facility] Last Admin: 08/19/16 09:30 Dose: 220 mg - Labs Labs: 08/19/16 06:55 08/19/16 06:55 PT 27.0 Seconds (9.9-11.8) H 08/19/16 06:55 INR 2.50 (0.93-1.08) H 08/19/16 06:55 APTT 30.7 Seconds (23.7-30.8) 07/30/16 06:30 Attending/Attestation - Attestation I have personally seen and examined this patient.: Yes I have fully participated in the care of the patient.: Yes I have reviewed all pertinent clinical information, including history, physical exam and plan: Yes Notes (Text): I have seen and examined the patient at bedside. Agree with the above note with the following additions/ exceptions: This is a 51 year old male with history of substance abuse (snorts cocaine), tobacco, alcohol use who got admitted for evaluation of back pain and found to have epidural abscess T1-T5, osteomyelitis , urinary retention and acute RLE DVT s/p IVC filter on coumadin. He underwent emergent laminectomy and epidural abscess was drained. He remains on meropenem. He has involuntary spasm of Lower extremities which appears to be getting better. Continue baclofen 20 mg po bid and mirapex. Reglan was discontinued. He has haque catheter for neurogenic bladder. Hematuria noticed since yesterday. He is not bleeding from anywhere else. His INR is therapeutic. Discussed with Dr Iqbal. Will continue coumadin for now. Hb is stable. Continue frequent turning, air mattress and wound care. As per nurses, wound are getting better. Pending placement. Dr Tutu Marc
--- NOTE | 2016-08-19 20:46 | CP.PCM.PN ---
Subjective - Date & Time of Evaluation Date of Evaluation: 08/19/16 Time of Evaluation: 11:40 - Subjective Subjective: Comfortable, afebrile, not in distress. Objective - Vital Signs/Intake and Output Vital Signs (last 24 hours): Temp Pulse Resp BP Pulse Ox 98 F 61 20 116/76 95 08/19/16 16:00 08/19/16 17:37 08/19/16 16:00 08/19/16 17:37 08/19/16 16:00 Intake and Output: 08/19/16 08/20/16 18:59 06:59 Intake Total 100 Balance 100 - Medications Medications: Current Medications Albuterol/Ipratropium (Duoneb 3 Mg/0.5 Mg (3 Ml) Ud) [id number] [facility] Last Admin: 08/19/16 13:30 Dose: 3 ml Ascorbic Acid (Vitamin C 500 Mg Tab) [address] [facility] Last Admin: 08/19/16 09:30 Dose: 500 mg Baclofen (Lioresal) [address] [facility] Last Admin: 08/19/16 17:37 Dose: 20 mg Bisacodyl (Dulcolax) 5 mg PO DAILY PRN PRN Reason: Constipation Meropenem 1g/NS 100mL IVPB (Meropenem 1g/Ns 100ml Ivpb) 1 gm in 100 mls @ 100 mls/hr IVPB Q8 [facility] PRN Reason: Protocol Stop: 08/19/16 22:01 Last Admin: 08/19/16 13:30 Dose: 100 mls/hr Metoprolol Tartrate (Lopressor) [address] [facility] Last Admin: 08/19/16 17:37 Dose: 25 mg Miconazole Nitrate (Miconazole 2% Cream) [address] [facility] Last Admin: 08/19/16 17:38 Dose: 1 applic Multivitamins/Minerals (Therapeutic-M Tab) [address] [facility] Last Admin: 08/19/16 09:30 Dose: 1 tab Nicotine (Nicoderm Cq) [address] [facility] Last Admin: 08/19/16 09:29 Dose: Not Given Ondansetron HCl (Zofran Inj) 4 mg IVP Q6H PRN PRN Reason: Nausea/Vomiting Pantoprazole Sodium (Protonix Ec Tab) [address] [facility] Last Admin: 08/19/16 08:11 Dose: 40 mg Pramipexole Dihydrochloride (Mirapex) 0.[address] [facility] Last Admin: 08/19/16 17:38 Dose: 0.25 mg Silver Sulfadiazine (Silvadene 1% 20 Gm) [address] [facility] Last Admin: 08/19/16 17:38 Dose: 1 applic Warfarin Sodium (Coumadin) [address] [facility] Last Admin: 08/19/16 17:36 Dose: 5 mg Zinc Sulfate (Zinc Sulfate 220 Mg Cap) [address] [facility] Last Admin: 08/19/16 09:30 Dose: 220 mg - Labs Labs: 08/19/16 06:55 08/19/16 06:55 PT 27.0 Seconds (9.9-11.8) H 08/19/16 06:55 INR 2.50 (0.93-1.08) H 08/19/16 06:55 APTT 30.7 Seconds (23.7-30.8) 07/30/16 06:30 - Constitutional Appears: Non-toxic, No Acute Distress - Head Exam Head Exam: NORMAL INSPECTION - ENT Exam ENT Exam: Mucous Membranes Moist - Neck Exam Neck Exam: absent: Lymphadenopathy, Meningismus - Respiratory Exam Respiratory Exam: Decreased Breath Sounds - Cardiovascular Exam Cardiovascular Exam: +S1, +S2 - GI/Abdominal Exam GI & Abdominal Exam: Soft. 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 with associated cord compression and lower extremity paralysis S/P neurosurgery for abscess drainage and laminectomy POD #42 Possible drug reaction to Rocephin Partial small bowel obstruction, clinically improved significant smoking history alcohol abuse obesity with BMI 40 Plan continue Merrem to complete at least 6 weeks of therapy; CRP still elevated - will monitor ESR, CRP weekly and continue antibiotics Will continue to follow clinically
[2016-08-20] MEDS: Albuterol-Ipratrop 3 mg / 0.5 (3 ml) UD IH SCH ×4 (02:15→19:32)
[2016-08-20] MEDS: Meropenem 1g/NS 100mL IVPB 1 GM/100 ML PIGGYBACK IVPB SCH ×3 (06:59→22:55)
[2016-08-20 08:00] LABS: INR 2.67 (0.93-1.08); PROTHROMBIN TIME 28.8 Seconds (9.9-11.8)
[2016-08-20] MEDS: Pantoprazole 40 mg EC Tab PO SCH (08:17)
[2016-08-20] MEDS: Miconazole 2% Cream(30 gm) TOP SCH ×2 (09:21→18:15)
[2016-08-20] MEDS: Silver Sulfadiazine 1% Cream (20 gm) TOP SCH ×2 (09:21→18:15)
[2016-08-20] MEDS: Multivitamin With Minerals Tab PO SCH (09:22)
--- NOTE | 2016-08-20 13:54 | CP.PCM.PN ---
<Keri Guzman - Last Filed: 08/20/16 16:03> Subjective - Date & Time of Evaluation Date of Evaluation: 08/20/16 Time of Evaluation: 13:52 - Subjective Subjective: HOSPITALISTS PROGRESS NOTE Pt is seen and examined at bedside. No acute events overnight. Patient is resting comfortably. Continues to complain of fasciculations in his lower extremity all the way up to abdomen. Denies having any CP, SOB, abd pain, N/V/D /C. Objective - Vital Signs/Intake and Output Vital Signs (last 24 hours): Temp Pulse Resp BP Pulse Ox 98.3 F 67 20 121/75 98 08/20/16 09:09 08/20/16 09:20 08/20/16 09:09 08/20/16 09:20 08/20/16 09:09 Intake and Output: 08/20/16 08/20/16 06:59 18:59 Intake Total 960 Output Total 1000 Balance -40 - Medications Medications: Current Medications Albuterol/Ipratropium (Duoneb 3 Mg/0.5 Mg (3 Ml) Ud) 3 ml IH [id number] [facility] Last Admin: 08/20/16 13:32 Dose: 3 ml Ascorbic Acid (Vitamin C 500 Mg Tab) 500 mg PO DAILY [facility] Last Admin: 08/20/16 09:22 Dose: 500 mg Baclofen (Lioresal) 20 mg PO TID [facility] Last Admin: 08/20/16 13:49 Dose: 20 mg Bisacodyl (Dulcolax) 5 mg PO DAILY PRN PRN Reason: Constipation Meropenem 1g/NS 100mL IVPB (Meropenem 1g/Ns 100ml Ivpb) 1 gm in 100 mls @ 100 mls/hr IVPB Q8 [facility] PRN Reason: Protocol Stop: 08/27/16 06:01 Last Admin: 08/20/16 13:48 Dose: 100 mls/hr Metoprolol Tartrate (Lopressor) 25 mg PO BID [facility] Last Admin: 08/20/16 09:20 Dose: 25 mg Miconazole Nitrate (Miconazole 2% Cream) 0 ea TOP BID [facility] Last Admin: 08/20/16 09:21 Dose: 1 applic Multivitamins/Minerals (Therapeutic-M Tab) 1 tab PO DAILY [facility] Last Admin: 08/20/16 09:22 Dose: 1 tab Nicotine (Nicoderm Cq) 1 patch TD DAILY [facility] Last Admin: 08/20/16 09:21 Dose: Not Given Ondansetron HCl (Zofran Inj) 4 mg IVP Q6H PRN PRN Reason: Nausea/Vomiting Pantoprazole Sodium (Protonix Ec Tab) 40 mg PO ACB [facility] Last Admin: 08/20/16 08:17 Dose: 40 mg Pramipexole Dihydrochloride (Mirapex) 0.25 mg PO TID [facility] Last Admin: 08/20/16 13:49 Dose: 0.25 mg Silver Sulfadiazine (Silvadene 1% 20 Gm) 0 ea TOP BID [facility] Last Admin: 08/20/16 09:21 Dose: 1 applic Warfarin Sodium (Coumadin) 5 mg PO 1800 [facility] Last Admin: 08/19/16 17:36 Dose: 5 mg Zinc Sulfate (Zinc Sulfate 220 Mg Cap) 220 mg PO DAILY [facility] Last Admin: 08/20/16 09:22 Dose: 220 mg - Labs Labs: 08/19/16 06:55 08/19/16 06:55 PT 28.8 Seconds (9.9-11.8) H 08/20/16 07:00 INR 2.67 (0.93-1.08) H 08/20/16 07:00 APTT 30.7 Seconds (23.7-30.8) 07/30/16 06:30 - Constitutional Appears: Non-toxic, No Acute Distress - Head Exam Head Exam: ATRAUMATIC - ENT Exam ENT Exam: Mucous Membranes Moist - Respiratory Exam Respiratory Exam: Clear to Ausculation Bilateral, NORMAL BREATHING PATTERN. absent: Rales, Rhonchi, Wheezes - Cardiovascular Exam Cardiovascular Exam: REGULAR RHYTHM, +S1, +S2. absent: Gallop, Rubs, Murmur - GI/Abdominal Exam GI & Abdominal Exam: Soft, Normal Bowel Sounds. 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 1. 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 Boots in place Baclofen 20 mg PO TID Continue Mirapex 3. R LE DVT s/p IVC filter placed INR is therapeutic. Will maintain INR between 2-3 Continue coumadin Will check INR and labs every other day. will continue to monitor for bleeding 4. Neurogenic bowel vs. ileus: resolved. Full diet but will monitor closely Dulcolax PO and RC PRN 5. Neurogenic bladder Haque in place 6. multiple stage 2 pressure ulcer on sacrum and buttock improving air mattress and continue to reposition q2H continue multivit, zinc, vitamin C PO Wound care is following 7. Hematuria Continue to monitor Urology, Dr. Iqbal is reconsulted. Awaiting recs Hgb is stable from yesterday Prophylaxis GI ppx- Protonix DVT ppx- coumadin Awaiting joint terminal attack controller care decision Case discussed with attending Dr. Marc <Tutu Marc B - Last Filed: 08/20/16 16:21> Objective - Vital Signs/Intake and Output Vital Signs (last 24 hours): Temp Pulse Resp BP Pulse Ox 98.3 F 67 20 121/75 98 08/20/16 09:09 08/20/16 09:20 08/20/16 09:09 08/20/16 09:20 08/20/16 09:09 Intake and Output: 08/20/16 08/20/16 06:59 18:59 Intake Total 960 840 Output Total 1000 600 Balance -40 240 - Medications Medications: Current Medications Albuterol/Ipratropium (Duoneb 3 Mg/0.5 Mg (3 Ml) Ud) 3 ml IH [id number] [facility] Last Admin: 08/20/16 13:32 Dose: 3 ml Ascorbic Acid (Vitamin C 500 Mg Tab) 500 mg PO DAILY [facility] Last Admin: 08/20/16 09:22 Dose: 500 mg Baclofen (Lioresal) 20 mg PO TID [facility] Last Admin: 08/20/16 13:49 Dose: 20 mg Bisacodyl (Dulcolax) 5 mg PO DAILY PRN PRN Reason: Constipation Meropenem 1g/NS 100mL IVPB (Meropenem 1g/Ns 100ml Ivpb) 1 gm in 100 mls @ 100 mls/hr IVPB Q8 [facility] PRN Reason: Protocol Stop: 08/27/16 06:01 Last Admin: 08/20/16 13:48 Dose: 100 mls/hr Metoprolol Tartrate (Lopressor) 25 mg PO BID [facility] Last Admin: 08/20/16 09:20 Dose: 25 mg Miconazole Nitrate (Miconazole 2% Cream) 0 ea TOP BID [facility] Last Admin: 08/20/16 09:21 Dose: 1 applic Multivitamins/Minerals (Therapeutic-M Tab) 1 tab PO DAILY [facility] Last Admin: 08/20/16 09:22 Dose: 1 tab Nicotine (Nicoderm Cq) 1 patch TD DAILY [facility] Last Admin: 08/20/16 09:21 Dose: Not Given Ondansetron HCl (Zofran Inj) 4 mg IVP Q6H PRN PRN Reason: Nausea/Vomiting Pantoprazole Sodium (Protonix Ec Tab) 40 mg PO ACB [facility] Last Admin: 08/20/16 08:17 Dose: 40 mg Pramipexole Dihydrochloride (Mirapex) 0.25 mg PO TID [facility] Last Admin: 08/20/16 13:49 Dose: 0.25 mg Silver Sulfadiazine (Silvadene 1% 20 Gm) 0 ea TOP BID [facility] Last Admin: 08/20/16 09:21 Dose: 1 applic Warfarin Sodium (Coumadin) 5 mg PO 1800 [facility] Last Admin: 08/19/16 17:36 Dose: 5 mg Zinc Sulfate (Zinc Sulfate 220 Mg Cap) 220 mg PO DAILY [facility] Last Admin: 08/20/16 09:22 Dose: 220 mg - Labs Labs: 08/19/16 06:55 08/19/16 06:55 PT 28.8 Seconds (9.9-11.8) H 08/20/16 07:00 INR 2.67 (0.93-1.08) H 08/20/16 07:00 APTT 30.7 Seconds (23.7-30.8) 07/30/16 06:30 Attending/Attestation - Attestation I have personally seen and examined this patient.: Yes I have fully participated in the care of the patient.: Yes I have reviewed all pertinent clinical information, including history, physical exam and plan: Yes Notes (Text): I have seen and examined the patient at bedside. Agree with the above note with the following additions/ exceptions: This is a 51 year old male with history of substance abuse (snorts cocaine), tobacco, alcohol use who got admitted for evaluation of back pain and found to have epidural abscess T1-T5, osteomyelitis , urinary retention and acute RLE DVT s/p IVC filter on coumadin. He underwent emergent laminectomy and epidural abscess was drained. He remains on meropenem. He has involuntary spasm of Lower extremities which appears to be getting better. Continue baclofen 20 mg po bid and mirapex. Reglan was discontinued. He has haque catheter for neurogenic bladder. Hematuria noticed since yesterday. He is not bleeding from anywhere else. His INR is therapeutic. Discussed with Dr Iqbal. He will see the patient today. Will continue coumadin for now. Hb is stable. Continue frequent turning, air mattress and wound care. As per nurses, wound are getting better. Pending placement. Discussed with the patients sister and niece in detail. Dr Tutu Marc x
--- NOTE | 2016-08-20 17:03 | CP.PCM.PN ---
Subjective - Date & Time of Evaluation Date of Evaluation: 08/20/16 Time of Evaluation: 12:00 - Subjective Subjective: Comfortable, afebrile, not in distress. Objective - Vital Signs/Intake and Output Vital Signs (last 24 hours): Temp Pulse Resp BP Pulse Ox 98.3 F 67 20 121/75 98 08/20/16 09:09 08/20/16 09:20 08/20/16 09:09 08/20/16 09:20 08/20/16 09:09 Intake and Output: 08/20/16 08/20/16 06:59 18:59 Intake Total 960 840 Output Total 1000 600 Balance -40 240 - Medications Medications: Current Medications Albuterol/Ipratropium (Duoneb 3 Mg/0.5 Mg (3 Ml) Ud) 3 ml IH [id number] [facility] Last Admin: 08/20/16 13:32 Dose: 3 ml Ascorbic Acid (Vitamin C 500 Mg Tab) 500 mg PO DAILY [facility] Last Admin: 08/20/16 09:22 Dose: 500 mg Baclofen (Lioresal) 20 mg PO TID [facility] Last Admin: 08/20/16 13:49 Dose: 20 mg Bisacodyl (Dulcolax) 5 mg PO DAILY PRN PRN Reason: Constipation Meropenem 1g/NS 100mL IVPB (Meropenem 1g/Ns 100ml Ivpb) 1 gm in 100 mls @ 100 mls/hr IVPB Q8 [facility] PRN Reason: Protocol Stop: 08/27/16 06:01 Last Admin: 08/20/16 13:48 Dose: 100 mls/hr Metoprolol Tartrate (Lopressor) 25 mg PO BID [facility] Last Admin: 08/20/16 09:20 Dose: 25 mg Miconazole Nitrate (Miconazole 2% Cream) 0 ea TOP BID [facility] Last Admin: 08/20/16 09:21 Dose: 1 applic Multivitamins/Minerals (Therapeutic-M Tab) 1 tab PO DAILY [facility] Last Admin: 08/20/16 09:22 Dose: 1 tab Nicotine (Nicoderm Cq) 1 patch TD DAILY [facility] Last Admin: 08/20/16 09:21 Dose: Not Given Ondansetron HCl (Zofran Inj) 4 mg IVP Q6H PRN PRN Reason: Nausea/Vomiting Pantoprazole Sodium (Protonix Ec Tab) 40 mg PO ACB [facility] Last Admin: 08/20/16 08:17 Dose: 40 mg Pramipexole Dihydrochloride (Mirapex) 0.25 mg PO TID [facility] Last Admin: 08/20/16 13:49 Dose: 0.25 mg Silver Sulfadiazine (Silvadene 1% 20 Gm) 0 ea TOP BID [facility] Last Admin: 08/20/16 09:21 Dose: 1 applic Warfarin Sodium (Coumadin) 5 mg PO 1800 [facility] Last Admin: 08/19/16 17:36 Dose: 5 mg Zinc Sulfate (Zinc Sulfate 220 Mg Cap) 220 mg PO DAILY [facility] Last Admin: 08/20/16 09:22 Dose: 220 mg - Labs Labs: 08/19/16 06:55 08/19/16 06:55 PT 28.8 Seconds (9.9-11.8) H 08/20/16 07:00 INR 2.67 (0.93-1.08) H 08/20/16 07:00 APTT 30.7 Seconds (23.7-30.8) 07/30/16 06:30 - Constitutional Appears: Non-toxic, No Acute Distress - Head Exam Head Exam: NORMAL INSPECTION - ENT Exam ENT Exam: Mucous Membranes Moist - Neck Exam Neck Exam: absent: Lymphadenopathy, Meningismus - Respiratory Exam Respiratory Exam: Decreased Breath Sounds - Cardiovascular Exam Cardiovascular Exam: +S1, +S2 - GI/Abdominal Exam GI & Abdominal Exam: Soft. 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 with associated cord compression and lower extremity paralysis S/P neurosurgery for abscess drainage and laminectomy POD #43 Possible drug reaction to Rocephin Partial small bowel obstruction, clinically improved significant smoking history alcohol abuse obesity with BMI 40 Plan we have continued Merrem despite completing 6 weeks of therapy because the CRP is still elevated - will monitor ESR, CRP weekly Will continue to follow clinically
[2016-08-21] MEDS: Albuterol-Ipratrop 3 mg / 0.5 (3 ml) UD IH SCH ×4 (05:15→20:05)
[2016-08-21] MEDS: Meropenem 1g/NS 100mL IVPB 1 GM/100 ML PIGGYBACK IVPB SCH ×3 (05:28→21:25)
[2016-08-21 07:54] LABS: HEMOGLOBIN 11.7 gm/dL (14.0-18.0); MEAN CELL VOLUME 87.8 fL (80.0-105.0); MEAN CORPUSCULAR HEMOGLOBIN 29.2 pg (25.0-35.0); MEAN CORPUSCULAR HGB CONC 33.2 g/dl (31.0-37.0); MEAN PLATELET VOLUME 11.7 fl (7.0-11.0); RBC 4.01 10^6/uL (3.5-6.1); RED CELL DISTRIBUTION WIDTH 13.9 % (11.5-14.5)
[2016-08-21 08:08] LABS: INR 2.75 (0.93-1.08); PROTHROMBIN TIME 29.7 Seconds (9.9-11.8)
[2016-08-21 08:11] LABS: BLOOD UREA NITROGEN 13 mg/dL (7-21); CALCIUM 9.3 mg/dL (8.4-10.5); GFR AFRICAN-AMERICAN > 60; GFR NON-AFRICAN AMERICAN > 60
[2016-08-21] MEDS: Pantoprazole 40 mg EC Tab PO SCH (08:25)
[2016-08-21] MEDS: Silver Sulfadiazine 1% Cream (20 gm) TOP SCH ×2 (10:09→18:10)
[2016-08-21] MEDS: Miconazole 2% Cream(30 gm) TOP SCH ×2 (10:09→18:09)
[2016-08-21] MEDS: Multivitamin With Minerals Tab PO SCH (11:10)
--- NOTE | 2016-08-21 14:56 | CP.PCM.PN ---
<Keri Guzman - Last Filed: 08/21/16 14:48> Subjective - Date & Time of Evaluation Date of Evaluation: 08/21/16 Time of Evaluation: 14:56 - Subjective Subjective: HOSPITALISTS PROGRESS NOTE Pt is seen and examined at bedside. No acute events overnight. Patient denies having any CP, SOB, abd pain, N/V/D/C, dysuria. Patient is tolerating diet and having regular bowel movements. Objective - Vital Signs/Intake and Output Vital Signs (last 24 hours): Temp Pulse Resp BP Pulse Ox 97.0 F L 65 20 130/88 95 08/21/16 08:00 08/21/16 08:00 08/21/16 08:00 08/21/16 08:00 08/21/16 08:00 Intake and Output: 08/21/16 08/21/16 06:59 18:59 Intake Total 600 Output Total 400 Balance 200 - Medications Medications: Current Medications Albuterol/Ipratropium (Duoneb 3 Mg/0.5 Mg (3 Ml) Ud) 3 ml IH [id number] [facility] Last Admin: 08/21/16 08:05 Dose: 3 ml Ascorbic Acid (Vitamin C 500 Mg Tab) 500 mg PO DAILY [facility] Last Admin: 08/21/16 11:07 Dose: 500 mg Baclofen (Lioresal) 20 mg PO TID [facility] Last Admin: 08/21/16 11:07 Dose: 20 mg Bisacodyl (Dulcolax) 5 mg PO DAILY PRN PRN Reason: Constipation Meropenem 1g/NS 100mL IVPB (Meropenem 1g/Ns 100ml Ivpb) 1 gm in 100 mls @ 100 mls/hr IVPB Q8 DONAL PRN Reason: Protocol Stop: 08/27/16 06:01 Last Admin: 08/21/16 05:28 Dose: 100 mls/hr Metoprolol Tartrate (Lopressor) 25 mg PO BID [facility] Last Admin: 08/21/16 11:07 Dose: 25 mg Miconazole Nitrate (Miconazole 2% Cream) 0 ea TOP BID [facility] Last Admin: 08/20/16 18:15 Dose: 1 applic Multivitamins/Minerals (Therapeutic-M Tab) 1 tab PO DAILY [facility] Last Admin: 08/21/16 11:10 Dose: 1 tab Nicotine (Nicoderm Cq) 1 patch TD DAILY [facility] Last Admin: 08/21/16 11:07 Dose: Not Given Ondansetron HCl (Zofran Inj) 4 mg IVP Q6H PRN PRN Reason: Nausea/Vomiting Pantoprazole Sodium (Protonix Ec Tab) 40 mg PO ACB [facility] Last Admin: 08/21/16 08:25 Dose: 40 mg Pramipexole Dihydrochloride (Mirapex) 0.25 mg PO TID [facility] Last Admin: 08/21/16 11:06 Dose: 0.25 mg Silver Sulfadiazine (Silvadene 1% 20 Gm) 0 ea TOP BID [facility] Last Admin: 08/20/16 18:15 Dose: 1 applic Warfarin Sodium (Coumadin) 5 mg PO 1800 [facility] Last Admin: 08/20/16 18:12 Dose: 5 mg Zinc Sulfate (Zinc Sulfate 220 Mg Cap) 220 mg PO DAILY [facility] Last Admin: 08/21/16 11:07 Dose: 220 mg - Labs Labs: 08/21/16 07:46 08/21/16 07:46 PT 29.7 Seconds (9.9-11.8) H 08/21/16 07:46 INR 2.75 (0.93-1.08) H 08/21/16 07:46 APTT 30.7 Seconds (23.7-30.8) 07/30/16 06:30 - Constitutional Appears: Non-toxic, No Acute Distress - Head Exam Head Exam: ATRAUMATIC - ENT Exam ENT Exam: Mucous Membranes Moist - Respiratory Exam Respiratory Exam: Clear to Ausculation Bilateral. absent: Rales, Rhonchi, Wheezes - Cardiovascular Exam Cardiovascular Exam: REGULAR RHYTHM, +S1, +S2. absent: Gallop, Rubs, Murmur - GI/Abdominal Exam GI & Abdominal Exam: Soft, Normal Bowel Sounds. 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 1. 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 Boots in place Baclofen 20 mg PO TID Continue Mirapex 3. R LE DVT s/p IVC filter placed INR is therapeutic. Will maintain INR between 2-3 Continue coumadin Will check INR and labs every other day. will continue to monitor for bleeding IVC filter in place 4. Neurogenic bowel vs. ileus: resolved. Full diet but will monitor closely Dulcolax PO and RC PRN 5. Neurogenic bladder Haque in place 6. multiple stage 2 pressure ulcer on sacrum and buttock improving air mattress and continue to reposition q2H continue multivit, zinc, vitamin C PO Wound care is following 7. Hematuria Continue to monitor Urology, Dr. Iqbal is reconsulted and saw patient yesterday. Will continue to monitor the hematuria Hgb is stable from yesterday Prophylaxis GI ppx- Protonix DVT ppx- coumadin Awaiting manager intermediate care decision Case discussed with attending Dr. Marc <Tutu Marc B - Last Filed: 08/21/16 15:25> Objective - Vital Signs/Intake and Output Vital Signs (last 24 hours): Temp Pulse Resp BP Pulse Ox 97.0 F L 65 20 130/88 95 08/21/16 08:00 08/21/16 08:00 08/21/16 08:00 08/21/16 08:00 08/21/16 08:00 Intake and Output: 08/21/16 08/21/16 06:59 18:59 Intake Total 600 Output Total 400 Balance 200 - Medications Medications: Current Medications Albuterol/Ipratropium (Duoneb 3 Mg/0.5 Mg (3 Ml) Ud) 3 ml IH [id number] [facility] Last Admin: 08/21/16 08:05 Dose: 3 ml Ascorbic Acid (Vitamin C 500 Mg Tab) 500 mg PO DAILY [facility] Last Admin: 08/21/16 11:07 Dose: 500 mg Baclofen (Lioresal) 20 mg PO TID [facility] Last Admin: 08/21/16 11:07 Dose: 20 mg Bisacodyl (Dulcolax) 5 mg PO DAILY PRN PRN Reason: Constipation Meropenem 1g/NS 100mL IVPB (Meropenem 1g/Ns 100ml Ivpb) 1 gm in 100 mls @ 100 mls/hr IVPB Q8 DON[facility] PRN Reason: Protocol Stop: 08/27/16 06:01 Last Admin: 08/21/16 05:28 Dose: 100 mls/hr Metoprolol Tartrate (Lopressor) 25 mg PO BID [facility] Last Admin: 08/21/16 11:07 Dose: 25 mg Miconazole Nitrate (Miconazole 2% Cream) 0 ea TOP BID [facility] Last Admin: 08/20/16 18:15 Dose: 1 applic Multivitamins/Minerals (Therapeutic-M Tab) 1 tab PO DAILY [facility] Last Admin: 08/21/16 11:10 Dose: 1 tab Nicotine (Nicoderm Cq) 1 patch TD DAILY [facility] Last Admin: 08/21/16 11:07 Dose: Not Given Ondansetron HCl (Zofran Inj) 4 mg IVP Q6H PRN PRN Reason: Nausea/Vomiting Pantoprazole Sodium (Protonix Ec Tab) 40 mg PO ACB [facility] Last Admin: 08/21/16 08:25 Dose: 40 mg Pramipexole Dihydrochloride (Mirapex) 0.25 mg PO TID [facility] Last Admin: 08/21/16 11:06 Dose: 0.25 mg Silver Sulfadiazine (Silvadene 1% 20 Gm) 0 ea TOP BID [facility] Last Admin: 08/20/16 18:15 Dose: 1 applic Warfarin Sodium (Coumadin) 5 mg PO 1800 [facility] Last Admin: 08/20/16 18:12 Dose: 5 mg Zinc Sulfate (Zinc Sulfate 220 Mg Cap) 220 mg PO DAILY [facility] Last Admin: 08/21/16 11:07 Dose: 220 mg - Labs Labs: 08/21/16 07:46 08/21/16 07:46 PT 29.7 Seconds (9.9-11.8) H 08/21/16 07:46 INR 2.75 (0.93-1.08) H 08/21/16 07:46 APTT 30.7 Seconds (23.7-30.8) 07/30/16 06:30 Attending/Attestation - Attestation I have personally seen and examined this patient.: Yes I have fully participated in the care of the patient.: Yes I have reviewed all pertinent clinical information, including history, physical exam and plan: Yes Notes (Text): I have seen and examined the patient at bedside. Agree with the above note with the following additions/ exceptions: This is a 51 year old male with history of substance abuse (snorts cocaine), tobacco, alcohol use who got admitted for evaluation of back pain and found to have epidural abscess T1-T5, osteomyelitis , urinary retention and acute RLE DVT s/p IVC filter on coumadin. He underwent emergent laminectomy and epidural abscess was drained. He remains on meropenem. He has involuntary spasm of Lower extremities which appears to be getting better. Continue baclofen 20 mg po bid and mirapex. Reglan was discontinued. He has haque catheter for neurogenic bladder. Hematuria noticed since yesterday. He is not bleeding from anywhere else. His INR is therapeutic. Discussed with Dr Iqbal who saw the patient yesterday and was planning to change the haque catheter. Will continue coumadin for now. Hb is stable. Continue frequent turning, air mattress and wound care. As per nurses, wound are getting better. Pending placement. Dr Tutu Marc
--- NOTE | 2016-08-21 20:23 | CP.PCM.PN ---
Subjective - Date & Time of Evaluation Date of Evaluation: 08/21/16 Time of Evaluation: 10:20 - Subjective Subjective: Comfortable, afebrile, has some feeling on his lower abdomen when before he did not have any. Objective - Vital Signs/Intake and Output Vital Signs (last 24 hours): Temp Pulse Resp BP Pulse Ox 98.6 F 61 20 115/63 96 08/21/16 16:00 08/21/16 16:00 08/21/16 16:00 08/21/16 16:00 08/21/16 16:00 - Medications Medications: Current Medications Albuterol/Ipratropium (Duoneb 3 Mg/0.5 Mg (3 Ml) Ud) 3 ml IH [id number] [facility] Last Admin: 08/21/16 20:05 Dose: 3 ml Ascorbic Acid (Vitamin C 500 Mg Tab) 500 mg PO DAILY [facility] Last Admin: 08/21/16 11:07 Dose: 500 mg Baclofen (Lioresal) 20 mg PO TID [facility] Last Admin: 08/21/16 18:08 Dose: 20 mg Bisacodyl (Dulcolax) 5 mg PO DAILY PRN PRN Reason: Constipation Meropenem 1g/NS 100mL IVPB (Meropenem 1g/Ns 100ml Ivpb) 1 gm in 100 mls @ 100 mls/hr IVPB Q8 [facility] PRN Reason: Protocol Stop: 08/27/16 06:01 Last Admin: 08/21/16 14:00 Dose: 100 mls/hr Metoprolol Tartrate (Lopressor) 25 mg PO BID [facility] Last Admin: 08/21/16 18:08 Dose: 25 mg Miconazole Nitrate (Miconazole 2% Cream) 0 ea TOP BID [facility] Last Admin: 08/21/16 18:09 Dose: 1 applic Multivitamins/Minerals (Therapeutic-M Tab) 1 tab PO DAILY [facility] Last Admin: 08/21/16 11:10 Dose: 1 tab Nicotine (Nicoderm Cq) 1 patch TD DAILY [facility] Last Admin: 08/21/16 11:07 Dose: Not Given Ondansetron HCl (Zofran Inj) 4 mg IVP Q6H PRN PRN Reason: Nausea/Vomiting Pantoprazole Sodium (Protonix Ec Tab) 40 mg PO ACB [facility] Last Admin: 08/21/16 08:25 Dose: 40 mg Pramipexole Dihydrochloride (Mirapex) 0.25 mg PO TID [facility] Last Admin: 08/21/16 18:08 Dose: 0.25 mg Silver Sulfadiazine (Silvadene 1% 20 Gm) 0 ea TOP BID [facility] Last Admin: 08/21/16 18:10 Dose: 1 applic Warfarin Sodium (Coumadin) 5 mg PO 1800 [facility] Last Admin: 08/21/16 18:09 Dose: 5 mg Zinc Sulfate (Zinc Sulfate 220 Mg Cap) 220 mg PO DAILY [facility] Last Admin: 08/21/16 11:07 Dose: 220 mg - Labs Labs: 08/21/16 07:46 08/21/16 07:46 PT 29.7 Seconds (9.9-11.8) H 08/21/16 07:46 INR 2.75 (0.93-1.08) H 08/21/16 07:46 APTT 30.7 Seconds (23.7-30.8) 07/30/16 06:30 - Constitutional Appears: Non-toxic, No Acute Distress - Head Exam Head Exam: NORMAL INSPECTION - ENT Exam ENT Exam: Mucous Membranes Moist - Neck Exam Neck Exam: absent: Lymphadenopathy, Meningismus - Respiratory Exam Respiratory Exam: Decreased Breath Sounds - Cardiovascular Exam Cardiovascular Exam: +S1, +S2 - GI/Abdominal Exam GI & Abdominal Exam: Soft. 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 with associated cord compression and lower extremity paralysis S/P neurosurgery for abscess drainage and laminectomy POD #44 Possible drug reaction to Rocephin Partial small bowel obstruction, clinically improved significant smoking history alcohol abuse obesity with BMI 40 Plan we have continued Merrem despite completing 6 weeks of therapy because the CRP is still elevated - will monitor ESR, CRP weekly Will continue to follow clinically
[2016-08-22] MEDS: Albuterol-Ipratrop 3 mg / 0.5 (3 ml) UD IH SCH ×4 (01:51→20:48)
[2016-08-22] MEDS: Meropenem 1g/NS 100mL IVPB 1 GM/100 ML PIGGYBACK IVPB SCH ×3 (05:28→21:11)
[2016-08-22] MEDS: Miconazole 2% Cream(30 gm) TOP SCH ×2 (09:58→23:56)
[2016-08-22] MEDS: Silver Sulfadiazine 1% Cream (20 gm) TOP SCH ×2 (09:59→23:56)
[2016-08-22] MEDS: Multivitamin With Minerals Tab PO SCH (09:59)
[2016-08-22] MEDS: Pantoprazole 40 mg EC Tab PO SCH (10:01)
--- NOTE | 2016-08-22 14:57 | CP.PCM.PN ---
Subjective - Date & Time of Evaluation Date of Evaluation: 08/22/16 Time of Evaluation: 07:15 - Subjective Subjective: I have seen and examined the patient at bedside. Still reports hematuria and it is bright red blood in the haque bag. Patient denies chest pain, abdominal pain , sob or any other complaints. Appetite is good. Using incentive spirometer regularly. Continues to have involuntary movements of lower extremities. Able to participate in physical therapy. Appears very pleasant. Objective - Vital Signs/Intake and Output Vital Signs (last 24 hours): Temp Pulse Resp BP Pulse Ox 98 F 68 20 109/77 98 08/22/16 08:08 08/22/16 08:08 08/22/16 08:08 08/22/16 08:08 08/22/16 08:08 Intake and Output: 08/22/16 08/22/16 06:59 18:59 Intake Total 960 Output Total 1600 Balance -640 - Medications Medications: Current Medications Albuterol/Ipratropium (Duoneb 3 Mg/0.5 Mg (3 Ml) Ud) 3 ml IH [id number] [facility] Last Admin: 08/22/16 07:45 Dose: 3 ml Ascorbic Acid (Vitamin C 500 Mg Tab) 500 mg PO DAILY [facility] Last Admin: 08/21/16 11:07 Dose: 500 mg Baclofen (Lioresal) 20 mg PO TID [facility] Last Admin: 08/21/16 18:08 Dose: 20 mg Bisacodyl (Dulcolax) 5 mg PO DAILY PRN PRN Reason: Constipation Meropenem 1g/NS 100mL IVPB (Meropenem 1g/Ns 100ml Ivpb) 1 gm in 100 mls @ 100 mls/hr IVPB Q8 DONAL PRN Reason: Protocol Stop: 08/27/16 06:01 Last Admin: 08/22/16 05:28 Dose: 100 mls/hr Metoprolol Tartrate (Lopressor) 25 mg PO BID [facility] Last Admin: 08/21/16 18:08 Dose: 25 mg Miconazole Nitrate (Miconazole 2% Cream) 0 ea TOP BID [facility] Last Admin: 08/21/16 18:09 Dose: 1 applic Multivitamins/Minerals (Therapeutic-M Tab) 1 tab PO DAILY [facility] Last Admin: 08/21/16 11:10 Dose: 1 tab Nicotine (Nicoderm Cq) 1 patch TD DAILY [facility] Last Admin: 08/21/16 11:07 Dose: Not Given Ondansetron HCl (Zofran Inj) 4 mg IVP Q6H PRN PRN Reason: Nausea/Vomiting Pantoprazole Sodium (Protonix Ec Tab) 40 mg PO ACB [facility] Last Admin: 08/21/16 08:25 Dose: 40 mg Pramipexole Dihydrochloride (Mirapex) 0.25 mg PO TID [facility] Last Admin: 08/21/16 18:08 Dose: 0.25 mg Silver Sulfadiazine (Silvadene 1% 20 Gm) 0 ea TOP BID [facility] Last Admin: 08/21/16 18:10 Dose: 1 applic Warfarin Sodium (Coumadin) 5 mg PO 1800 [facility] Last Admin: 08/21/16 18:09 Dose: 5 mg Zinc Sulfate (Zinc Sulfate 220 Mg Cap) 220 mg PO DAILY [facility] Last Admin: 08/21/16 11:07 Dose: 220 mg - Labs Labs: 08/21/16 07:46 08/21/16 07:46 PT 29.7 Seconds (9.9-11.8) H 08/21/16 07:46 INR 2.75 (0.93-1.08) H 08/21/16 07:46 APTT 30.7 Seconds (23.7-30.8) 07/30/16 06:30 - Constitutional Appears: Well, No Acute Distress - Head Exam Head Exam: ATRAUMATIC, NORMAL INSPECTION, NORMOCEPHALIC - Eye Exam Eye Exam: EOMI, Normal appearance Pupil Exam: PERRL - ENT Exam ENT Exam: Mucous Membranes Moist - Neck Exam Neck Exam: Full ROM, Normal Inspection - Respiratory Exam Respiratory Exam: Rhonchi. absent: Accessory Muscle Use, Prolonged Expiratory Phase - Cardiovascular Exam Cardiovascular Exam: REGULAR RHYTHM, +S1, +S2. absent: Murmur - GI/Abdominal Exam GI & Abdominal Exam: Distended, Soft. absent: Tenderness - Rectal Exam Rectal Exam: Deferred - Extremities Exam Extremities Exam: Full ROM, Normal Capillary Refill, Normal Inspection - Back Exam Back Exam: Full ROM, NORMAL INSPECTION. absent: CVA tenderness (L), CVA tenderness (R) - Neurological Exam Neurological Exam: Alert, Awake, Motor Sensory Deficit (of bilateral lower extremities), Oriented x3 Neuro motor strength exam: Left Upper Extremity: 5, Right Upper Extremity: 5, Left Lower Extremity: 0, Right Lower Extremity: 0 - Psychiatric Exam Psychiatric exam: Normal Affect, Normal Mood - Skin Skin Exam: Intact, Normal Color, Warm Assessment and Plan - Assessment and Plan (Free Text) Plan: This is a 51 year old male with history of substance abuse (snorts cocaine), tobacco, alcohol use who got admitted for evaluation of back pain and found to have epidural abscess T1-T5, osteomyelitis, urinary retention and acute RLE DVT s/p IVC filter on coumadin. He underwent emergent laminectomy and epidural abscess was drained. 1-Epidural space abscess s/p lamenectomy T2-T4: Continue meropenem as per ID for one more week as CRP is still elevated. 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 Frequent repositioning. 3-Involuntary movements of bilateral lower extremities: Continue baclofen and mirapex. 4-Right LE DVT s/p IVC filter: INR therapeutic. Continue coumadin. 5-Hematuria: Hb is stable. Continue coumadin. Discussed with Dr Iqbal who saw the patient yesterday and was planning to change the haque catheter. 6-Multiple stage 2 ulcer on sacrum and buttocks area: Improving. Continue air mattress, frequent repositioning, MVI, zinc and vitamin C. Continue wound care. 7-GI prophylaxis: continue protonix. 8-DVT prophylaxis: continue coumadin. 9-Dispo: Awaiting [facility] placement.
--- NOTE | 2016-08-22 18:07 | CP.PCM.PN ---
Subjective - Date & Time of Evaluation Date of Evaluation: 08/22/16 Time of Evaluation: 10:00 - Subjective Subjective: Comfortable, afebrile, not in distress. Objective - Vital Signs/Intake and Output Vital Signs (last 24 hours): Temp Pulse Resp BP Pulse Ox 98.3 F 62 20 111/74 96 08/22/16 16:00 08/22/16 17:30 08/22/16 16:00 08/22/16 17:30 08/22/16 16:00 Intake and Output: 08/22/16 08/22/16 06:59 18:59 Intake Total 960 Output Total 1600 Balance -640 - Medications Medications: Current Medications Albuterol/Ipratropium (Duoneb 3 Mg/0.5 Mg (3 Ml) Ud) 3 ml IH [id number] [facility] Last Admin: 08/22/16 14:30 Dose: 3 ml Ascorbic Acid (Vitamin C 500 Mg Tab) 500 mg PO DAILY [facility] Last Admin: 08/22/16 09:59 Dose: 500 mg Baclofen (Lioresal) 20 mg PO TID [facility] Last Admin: 08/22/16 17:30 Dose: 20 mg Bisacodyl (Dulcolax) 5 mg PO DAILY PRN PRN Reason: Constipation Meropenem 1g/NS 100mL IVPB (Meropenem 1g/Ns 100ml Ivpb) 1 gm in 100 mls @ 100 mls/hr IVPB Q8 [facility] PRN Reason: Protocol Stop: 08/27/16 06:01 Last Admin: 08/22/16 13:44 Dose: 100 mls/hr Metoprolol Tartrate (Lopressor) 25 mg PO BID [facility] Last Admin: 08/22/16 17:30 Dose: 25 mg Miconazole Nitrate (Miconazole 2% Cream) 0 ea TOP BID [facility] Last Admin: 08/22/16 09:58 Dose: 1 applic Multivitamins/Minerals (Therapeutic-M Tab) 1 tab PO DAILY [facility] Last Admin: 08/22/16 09:59 Dose: 1 tab Nicotine (Nicoderm Cq) 1 patch TD DAILY [facility] Last Admin: 08/22/16 09:59 Dose: Not Given Ondansetron HCl (Zofran Inj) 4 mg IVP Q6H PRN PRN Reason: Nausea/Vomiting Pantoprazole Sodium (Protonix Ec Tab) 40 mg PO ACB [facility] Last Admin: 08/22/16 10:01 Dose: 40 mg Pramipexole Dihydrochloride (Mirapex) 0.25 mg PO TID [facility] Last Admin: 08/22/16 17:30 Dose: 0.25 mg Silver Sulfadiazine (Silvadene 1% 20 Gm) 0 ea TOP BID [facility] Last Admin: 08/22/16 09:59 Dose: 1 applic Zinc Sulfate (Zinc Sulfate 220 Mg Cap) 220 mg PO DAILY [facility] Last Admin: 08/22/16 09:59 Dose: 220 mg - Labs Labs: 08/21/16 07:46 08/21/16 07:46 PT 29.7 Seconds (9.9-11.8) H 08/21/16 07:46 INR 2.75 (0.93-1.08) H 08/21/16 07:46 APTT 30.7 Seconds (23.7-30.8) 07/30/16 06:30 - Constitutional Appears: Non-toxic, No Acute Distress - Head Exam Head Exam: NORMAL INSPECTION - Neck Exam Neck Exam: absent: Lymphadenopathy, Meningismus - Respiratory Exam Respiratory Exam: Decreased Breath Sounds - Cardiovascular Exam Cardiovascular Exam: +S1, +S2 - GI/Abdominal Exam GI & Abdominal Exam: Soft. 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 with associated cord compression and lower extremity paralysis S/P neurosurgery for abscess drainage and laminectomy POD #45 Possible drug reaction to Rocephin Partial small bowel obstruction, clinically improved significant smoking history alcohol abuse obesity with BMI 40 Plan we have continued Merrem despite completing 6 weeks of therapy because the CRP is still elevated - will monitor ESR, CRP weekly Will continue to follow clinically
[2016-08-23] MEDS: Albuterol-Ipratrop 3 mg / 0.5 (3 ml) UD IH SCH ×4 (01:36→21:15)
[2016-08-23] MEDS: Meropenem 1g/NS 100mL IVPB 1 GM/100 ML PIGGYBACK IVPB SCH ×3 (05:22→22:09)
[2016-08-23] MEDS: Multivitamin With Minerals Tab PO SCH (09:31)
[2016-08-23] MEDS: Miconazole 2% Cream(30 gm) TOP SCH ×2 (09:32→18:07)
[2016-08-23] MEDS: Pantoprazole 40 mg EC Tab PO SCH (09:32)
[2016-08-23] MEDS: Silver Sulfadiazine 1% Cream (20 gm) TOP SCH ×2 (09:33→18:07)
--- NOTE | 2016-08-23 10:43 | CP.PCM.PN ---
<Keri Guzman - Last Filed: 08/23/16 10:39> Subjective - Date & Time of Evaluation Date of Evaluation: 08/23/16 Time of Evaluation: 10:39 - Subjective Subjective: HOSPITLIATS PROGRESS NOTE Pt is seen and examined at bedside. No acute events overnight. Patient is consistently having hematuria, urine is pinkish in color. Denies having any CP , SOB, abd pain, N/V. Tolerating diet and having regular BMs. Continues to have involuntary movements in his LE. Objective - Vital Signs/Intake and Output Vital Signs (last 24 hours): Temp Pulse Resp BP Pulse Ox 97.7 F 67 20 123/86 96 08/23/16 07:30 08/23/16 07:30 08/23/16 07:30 08/23/16 07:30 08/23/16 07:30 Intake and Output: 08/23/16 08/23/16 06:59 18:59 Intake Total 760 Output Total 225 Balance 535 - Medications Medications: Current Medications Albuterol/Ipratropium (Duoneb 3 Mg/0.5 Mg (3 Ml) Ud) 3 ml IH [id number] [facility] Last Admin: 08/23/16 09:09 Dose: 3 ml Ascorbic Acid (Vitamin C 500 Mg Tab) 500 mg PO DAILY [facility] Last Admin: 08/23/16 09:32 Dose: 500 mg Baclofen (Lioresal) 20 mg PO TID [facility] Last Admin: 08/23/16 09:32 Dose: 20 mg Bisacodyl (Dulcolax) 5 mg PO DAILY PRN PRN Reason: Constipation Meropenem 1g/NS 100mL IVPB (Meropenem 1g/Ns 100ml Ivpb) 1 gm in 100 mls @ 100 mls/hr IVPB Q8 [facility] PRN Reason: Protocol Stop: 08/27/16 06:01 Last Admin: 08/23/16 05:22 Dose: 100 mls/hr Metoprolol Tartrate (Lopressor) 25 mg PO BID [facility] Last Admin: 08/23/16 09:32 Dose: 25 mg Miconazole Nitrate (Miconazole 2% Cream) 0 ea TOP BID [facility] Last Admin: 08/23/16 09:32 Dose: 1 applic Multivitamins/Minerals (Therapeutic-M Tab) 1 tab PO DAILY [facility] Last Admin: 08/23/16 09:31 Dose: 1 tab Nicotine (Nicoderm Cq) 1 patch TD DAILY [facility] Last Admin: 08/23/16 09:35 Dose: Not Given Ondansetron HCl (Zofran Inj) 4 mg IVP Q6H PRN PRN Reason: Nausea/Vomiting Pantoprazole Sodium (Protonix Ec Tab) 40 mg PO ACB [facility] Last Admin: 08/23/16 09:32 Dose: 40 mg Pramipexole Dihydrochloride (Mirapex) 0.25 mg PO TID [facility] Last Admin: 08/23/16 09:32 Dose: 0.25 mg Silver Sulfadiazine (Silvadene 1% 20 Gm) 0 ea TOP BID [facility] Last Admin: 08/23/16 09:33 Dose: 1 applic Zinc Sulfate (Zinc Sulfate 220 Mg Cap) 220 mg PO DAILY [facility] Last Admin: 08/23/16 09:32 Dose: 220 mg - Labs Labs: 08/21/16 07:46 08/21/16 07:46 PT 29.7 Seconds (9.9-11.8) H 08/21/16 07:46 INR 2.75 (0.93-1.08) H 08/21/16 07:46 APTT 30.7 Seconds (23.7-30.8) 07/30/16 06:30 - Constitutional Appears: Non-toxic, No Acute Distress - Head Exam Head Exam: ATRAUMATIC - ENT Exam ENT Exam: Mucous Membranes Moist - Respiratory Exam Respiratory Exam: Clear to Ausculation Bilateral. absent: Rales, Rhonchi, Wheezes - Cardiovascular Exam Cardiovascular Exam: REGULAR RHYTHM, +S1, +S2 - GI/Abdominal Exam GI & Abdominal Exam: Soft, Normal Bowel Sounds. 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 1. 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 will need ot check ESR and CRP next week. on Tramadol prn for pain 2. 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 Boots in place Baclofen 20 mg PO TID Continue Mirapex 3. R LE DVT s/p IVC filter placed INR is therapeutic. Will maintain INR between 2-3 Continue coumadin Will check INR and labs every other day. will continue to monitor for bleeding IVC filter in place 4. Neurogenic bowel vs. ileus: resolved. Full diet but will monitor closely Dulcolax PO and RC PRN 5. Neurogenic bladder Haque in place 6. multiple stage 2 pressure ulcer on sacrum and buttock improving air mattress and continue to reposition q2H continue multivit, zinc, vitamin C PO Wound care is following 7. Hematuria Continue to monitor Urology, Dr. Iqbal is reconsulted and saw patient yesterday. Will continue to monitor the hematuria Will check Hgb today Prophylaxis GI ppx- Protonix DVT ppx- coumadin Awaiting terminal operator care decision Case discussed with attending Dr. Marc <Tutu Marc B - Last Filed: 08/23/16 11:20> Objective - Vital Signs/Intake and Output Vital Signs (last 24 hours): Temp Pulse Resp BP Pulse Ox 97.7 F 67 20 123/86 96 08/23/16 07:30 08/23/16 07:30 08/23/16 07:30 08/23/16 07:30 08/23/16 07:30 Intake and Output: 08/23/16 08/23/16 06:59 18:59 Intake Total 760 Output Total 225 Balance 535 - Medications Medications: Current Medications Albuterol/Ipratropium (Duoneb 3 Mg/0.5 Mg (3 Ml) Ud) 3 ml IH [id number] [facility] Last Admin: 08/23/16 09:09 Dose: 3 ml Ascorbic Acid (Vitamin C 500 Mg Tab) 500 mg PO DAILY [facility] Last Admin: 08/23/16 09:32 Dose: 500 mg Baclofen (Lioresal) 20 mg PO TID [facility] Last Admin: 08/23/16 09:32 Dose: 20 mg Bisacodyl (Dulcolax) 5 mg PO DAILY PRN PRN Reason: Constipation Meropenem 1g/NS 100mL IVPB (Meropenem 1g/Ns 100ml Ivpb) 1 gm in 100 mls @ 100 mls/hr IVPB Q8 [facility] PRN Reason: Protocol Stop: 08/27/16 06:01 Last Admin: 08/23/16 05:22 Dose: 100 mls/hr Metoprolol Tartrate (Lopressor) 25 mg PO BID [facility] Last Admin: 08/23/16 09:32 Dose: 25 mg Miconazole Nitrate (Miconazole 2% Cream) 0 ea TOP BID [facility] Last Admin: 08/23/16 09:32 Dose: 1 applic Multivitamins/Minerals (Therapeutic-M Tab) 1 tab PO DAILY [facility] Last Admin: 08/23/16 09:31 Dose: 1 tab Nicotine (Nicoderm Cq) 1 patch TD DAILY [facility] Last Admin: 08/23/16 09:35 Dose: Not Given Ondansetron HCl (Zofran Inj) 4 mg IVP Q6H PRN PRN Reason: Nausea/Vomiting Pantoprazole Sodium (Protonix Ec Tab) 40 mg PO ACB [facility] Last Admin: 08/23/16 09:32 Dose: 40 mg Pramipexole Dihydrochloride (Mirapex) 0.25 mg PO TID [facility] Last Admin: 08/23/16 09:32 Dose: 0.25 mg Silver Sulfadiazine (Silvadene 1% 20 Gm) 0 ea TOP BID [facility] Last Admin: 08/23/16 09:33 Dose: 1 applic Zinc Sulfate (Zinc Sulfate 220 Mg Cap) 220 mg PO DAILY [facility] Last Admin: 08/23/16 09:32 Dose: 220 mg - Labs Labs: 08/21/16 07:46 08/21/16 07:46 PT 29.7 Seconds (9.9-11.8) H 08/21/16 07:46 INR 2.75 (0.93-1.08) H 08/21/16 07:46 APTT 30.7 Seconds (23.7-30.8) 07/30/16 06:30 Attending/Attestation - Attestation I have personally seen and examined this patient.: Yes I have fully participated in the care of the patient.: Yes I have reviewed all pertinent clinical information, including history, physical exam and plan: Yes Notes (Text): I have seen and examined the patient at bedside. Agree with the above note with the following additions/ exceptions: This is a 51 year old male with history of substance abuse (snorts cocaine), tobacco, alcohol use who got admitted for evaluation of back pain and found to have epidural abscess T1-T5, osteomyelitis , urinary retention and acute RLE DVT s/p IVC filter on coumadin. He underwent emergent laminectomy and epidural abscess was drained. He remains on meropenem. He has involuntary spasm of Lower extremities which appears to be getting better. Continue baclofen 20 mg po bid and mirapex. Reglan was discontinued. He has haque catheter for neurogenic bladder. Hematuria is persistent. He is not bleeding from anywhere else. His INR is therapeutic. Discussed with Dr Iqbal who saw the patient and was planning to change the haque catheter. Will continue coumadin for now. Hb is stable. Continue frequent turning, air mattress and wound care. As per nurses, wound are getting better. Pending placement. Dr Tutu Marc
[2016-08-23 11:49] LABS: HEMOGLOBIN 12.2 gm/dL (14.0-18.0); MEAN CELL VOLUME 87.3 fL (80.0-105.0); MEAN CORPUSCULAR HEMOGLOBIN 29.3 pg (25.0-35.0); MEAN CORPUSCULAR HGB CONC 33.5 g/dl (31.0-37.0); MEAN PLATELET VOLUME 11.5 fl (7.0-11.0); RBC 4.17 10^6/uL (3.5-6.1); RED CELL DISTRIBUTION WIDTH 13.9 % (11.5-14.5); WHITE BLOOD COUNT 6.2 10^3/ul (4.5-11.0)
[2016-08-23 11:58] LABS: INR 2.91 (0.93-1.08); PROTHROMBIN TIME 31.4 Seconds (9.9-11.8)
[2016-08-23 12:05] LABS: BLOOD UREA NITROGEN 11 mg/dL (7-21); CALCIUM 9.1 mg/dL (8.4-10.5); GFR AFRICAN-AMERICAN > 60; GFR NON-AFRICAN AMERICAN > 60
--- NOTE | 2016-08-23 16:24 | PN ---
DATE: 08/23/2016 The patient is in room 574, bed 2. He was seen earlier this morning. He is comfortable. He has no motor function to lower extremities. He does have some spasms according to the patient. PHYSICAL EXAMINATION: VITAL SIGNS: Temperature is 97, blood pressure is 123/80, respiratory rate of 20, heart rate of 67. HEENT: Unremarkable. NECK: Supple. LUNGS: Have decreased breath sounds. HEART: Normal S1, S2. ABDOMEN: Soft, nontender. MEDICATIONS: A review of the orders reveals the patient to be on meropenem. LABORATORY EXAMINATION: The patient's last sed rate is 56 on the and C-reactive protein down to 7.[address] ASSESSMENT AND PLAN: This is a 51-year-old male who was admitted with an epidural abscess secondary to Streptococcus pneumoniae and cord compression lower extremity paralysis status post neurosurgery a nd drainage of the abscess that grew Streptococcus pneumoniae, most unusual organism for this particu lar site of infection, currently on meropenem. The patient developed a rash on ceftriaxone and would continue to follow the C-reactive protein and sed rate once weekly and intermittent MRI of the spine . Will follow with you. Colt Coronel MD cc: [phone] TT: 08/23/2016 16:24:18 Confirmation # [id number] Dictation # [id number] jose
[2016-08-24] MEDS: Albuterol-Ipratrop 3 mg / 0.5 (3 ml) UD IH SCH ×4 (03:10→20:00)
[2016-08-24] MEDS: Meropenem 1g/NS 100mL IVPB 1 GM/100 ML PIGGYBACK IVPB SCH ×3 (05:17→21:20)
[2016-08-24] MEDS: Pantoprazole 40 mg EC Tab PO SCH (08:16)
[2016-08-24] MEDS: Multivitamin With Minerals Tab PO SCH (09:50)
[2016-08-24] MEDS: Silver Sulfadiazine 1% Cream (20 gm) TOP SCH ×2 (09:51→18:19)
[2016-08-24] MEDS: Miconazole 2% Cream(30 gm) TOP SCH ×2 (09:51→18:19)
--- NOTE | 2016-08-24 11:42 | CP.PCM.PN ---
Subjective - Date & Time of Evaluation Date of Evaluation: 08/24/16 Time of Evaluation: 08:30 - Subjective Subjective: I have seen and examined the patient at bedside. Denies any overnight complaints. Still has hematuria. Last BM was yesterday. Patient denies chest pain, abdominal pain, sob or any other complaints. Appetite is good. Using incentive spirometer regularly. Continues to have involuntary movements of lower extremities. Able to participate in physical therapy. Objective - Vital Signs/Intake and Output Vital Signs (last 24 hours): Temp Pulse Resp BP Pulse Ox 98.3 F 68 20 125/73 95 08/24/16 07:30 08/24/16 09:50 08/24/16 07:30 08/24/16 09:50 08/24/16 07:30 Intake and Output: 08/24/16 08/24/16 06:59 18:59 Intake Total 1160 Output Total 600 Balance 560 - Medications Medications: Current Medications Albuterol/Ipratropium (Duoneb 3 Mg/0.5 Mg (3 Ml) Ud) 3 ml IH [id number] [facility] Last Admin: 08/24/16 07:49 Dose: 3 ml Ascorbic Acid (Vitamin C 500 Mg Tab) 500 mg PO DAILY [facility] Last Admin: 08/24/16 09:50 Dose: 500 mg Baclofen (Lioresal) 20 mg PO TID [facility] Last Admin: 08/24/16 09:50 Dose: 20 mg Bisacodyl (Dulcolax) 5 mg PO DAILY PRN PRN Reason: Constipation Meropenem 1g/NS 100mL IVPB (Meropenem 1g/Ns 100ml Ivpb) 1 gm in 100 mls @ 100 mls/hr IVPB Q8 [facility] PRN Reason: Protocol Stop: 08/27/16 06:01 Last Admin: 08/24/16 05:17 Dose: 100 mls/hr Metoprolol Tartrate (Lopressor) 25 mg PO BID [facility] Last Admin: 08/24/16 09:50 Dose: 25 mg Miconazole Nitrate (Miconazole 2% Cream) 0 ea TOP BID [facility] Last Admin: 08/24/16 09:51 Dose: 1 applic Multivitamins/Minerals (Therapeutic-M Tab) 1 tab PO DAILY [facility] Last Admin: 08/24/16 09:50 Dose: 1 tab Nicotine (Nicoderm Cq) 1 patch TD DAILY [facility] Last Admin: 08/24/16 09:51 Dose: Not Given Ondansetron HCl (Zofran Inj) 4 mg IVP Q6H PRN PRN Reason: Nausea/Vomiting Pantoprazole Sodium (Protonix Ec Tab) 40 mg PO ACB [facility] Last Admin: 08/24/16 08:16 Dose: 40 mg Pramipexole Dihydrochloride (Mirapex) 0.25 mg PO TID [facility] Last Admin: 08/24/16 09:50 Dose: 0.25 mg Silver Sulfadiazine (Silvadene 1% 20 Gm) 0 ea TOP BID [facility] Last Admin: 08/24/16 09:51 Dose: 1 applic Warfarin Sodium (Coumadin) 5 mg PO 1800 [facility] PRN Reason: Protocol Zinc Sulfate (Zinc Sulfate 220 Mg Cap) 220 mg PO DAILY [facility] Last Admin: 08/24/16 09:50 Dose: 220 mg - Labs Labs: 08/23/16 11:42 08/23/16 11:42 PT 31.4 Seconds (9.9-11.8) H* 08/23/16 11:42 INR 2.91 (0.93-1.08) H 08/23/16 11:42 APTT 30.7 Seconds (23.7-30.8) 07/30/16 06:30 - Constitutional Appears: Well, No Acute Distress - Head Exam Head Exam: ATRAUMATIC, NORMAL INSPECTION, NORMOCEPHALIC - Eye Exam Eye Exam: Normal appearance, PERRL Pupil Exam: PERRL - ENT Exam ENT Exam: Mucous Membranes Moist, Normal Oropharynx - Neck Exam Neck Exam: Full ROM, Normal Inspection - Respiratory Exam Additional comments: mild scattered rhonchi - Cardiovascular Exam Cardiovascular Exam: REGULAR RHYTHM, +S1, +S2 - GI/Abdominal Exam GI & Abdominal Exam: Distended, Soft, Normal Bowel Sounds. absent: Tenderness - Rectal Exam Rectal Exam: Deferred - Extremities Exam Extremities Exam: Normal Inspection - Neurological Exam Neurological Exam: Alert, Awake, Motor Sensory Deficit (of bilateral lower extremities), Oriented x3 Neuro motor strength exam: Left Upper Extremity: 5, Right Upper Extremity: 5, Left Lower Extremity: 0, Right Lower Extremity: 0 - Psychiatric Exam Psychiatric exam: Normal Affect, Normal Mood Assessment and Plan - Assessment and Plan (Free Text) Plan: This is a 51 year old male with history of substance abuse (snorts cocaine), tobacco, alcohol use who got admitted for evaluation of back pain and found to have epidural abscess T1-T5, osteomyelitis, urinary retention and acute RLE DVT s/p IVC filter on coumadin. He underwent emergent laminectomy and epidural abscess was drained. 1-Epidural space abscess s/p lamenectomy T2-T4: Continue meropenem as per ID for one more week as CRP is still elevated. Will check CRP next week. 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 Frequent repositioning. 3-Involuntary movements of bilateral lower extremities: Continue baclofen and mirapex. 4-Right LE DVT s/p IVC filter: INR therapeutic. Continue coumadin. 5-Hematuria: Hb is stable. Continue coumadin. Discussed with Dr Iqbal today who will see the patient tomorrow and has a plan to change the haque catheter. 6-Multiple stage 2 ulcer on sacrum and buttocks area: Improving. Continue air mattress, frequent repositioning, MVI, zinc and vitamin C. Continue wound care. 7-GI prophylaxis: continue protonix. 8-DVT prophylaxis: continue coumadin. 9-Dispo: Awaiting detention placement.
--- NOTE | 2016-08-24 11:58 | PN ---
DATE: 08/24/2016 The patient is in bed, in no acute distress. PHYSICAL EXAMINATION: VITAL SIGNS: Temperature 98, blood pressure is 120/70, respiratory rate of 16. HEENT: Unremarkable. NECK: Supple. LUNGS: Have decreased breath sounds. HEART: Normal S1, S2. ABDOMEN: Soft, nontender. LABORATORY EXAMINATION: Reveals a white count of 6.2, hemoglobin of 12 and platelets of 190. BUN of 11, creatinine of 0.5. Procalcitonin is less than 0.08. ASSESSMENT AND PLAN: A 51-year-old male admitted with epidural abscess secondary to Streptococcus pn eumoniae, cord compression, lower extremity paralysis, status post neurosurgery and drainage of an ab scess, which grew Streptococcus pneumoniae. Currently on meropenem. Will follow closely with you. The meropenem will be renewed. Colt Coronel MD cc: [phone] TT: 08/24/2016 11:57:03 Confirmation # [id number] Dictation # [id number]
[2016-08-25] MEDS: Albuterol-Ipratrop 3 mg / 0.5 (3 ml) UD IH SCH ×4 (01:56→20:30)
[2016-08-25] MEDS: Meropenem 1g/NS 100mL IVPB 1 GM/100 ML PIGGYBACK IVPB SCH ×3 (06:03→21:45)
--- NOTE | 2016-08-25 07:50 | PCM.URO ---
Urology Progress Note - Objective Intake & Output: Intake & Output 08/24/16 08/25/16 08/25/16 18:59 06:59 18:59 Intake Total 640 1320 Output Total 500 400 Balance 140 920 Intake: Oral 640 1320 Output: Urine 500 400 Urethral (Mackenzie) 500 400 Other: # Bowel Movements 4 1 Vital Signs: Vital Signs - 24 hr 08/24/16 08/24/16 08/24/16 09:50 16:00 17:45 Temperature 98 F Pulse Rate 68 67 67 Respiratory 20 Rate Blood Pressure 125/73 119/74 119/74 O2 Sat by Pulse 97 Oximetry
[2016-08-25 08:03] LABS: INR 1.94 (0.93-1.08)
[2016-08-25] MEDS: Pantoprazole 40 mg EC Tab PO SCH (08:05)
[2016-08-25] MEDS: Miconazole 2% Cream(30 gm) TOP SCH ×2 (09:20→17:17)
[2016-08-25] MEDS: Multivitamin With Minerals Tab PO SCH (09:20)
[2016-08-25] MEDS: Silver Sulfadiazine 1% Cream (20 gm) TOP SCH ×2 (09:20→17:18)
--- NOTE | 2016-08-25 10:52 | CP.PCM.PN ---
<Keri Guzman - Last Filed: 08/25/16 10:45> Subjective - Date & Time of Evaluation Date of Evaluation: 08/25/16 Time of Evaluation: 10:45 - Subjective Subjective: HOSPITALISTS PROGRESS NOTE Pt is seen and examined at bedside. No acute events overnight. Haque changes by urologist, Dr. Iqbal this morning. Urine is still reddish pink. Patient denies having any CP, SOB, abd pain, N/V/D/C. Patient is tolerating diet and having regular BMs. Objective - Vital Signs/Intake and Output Vital Signs (last 24 hours): Temp Pulse Resp BP Pulse Ox 98.8 F 65 20 124/83 94 L 08/25/16 08:00 08/25/16 08:00 08/25/16 08:00 08/25/16 09:20 08/25/16 08:00 Intake and Output: 08/25/16 08/25/16 06:59 18:59 Intake Total 1320 Output Total 400 Balance 920 - Medications Medications: Current Medications Albuterol/Ipratropium (Duoneb 3 Mg/0.5 Mg (3 Ml) Ud) 3 ml IH [id number] [facility] Last Admin: 08/25/16 08:00 Dose: 3 ml Ascorbic Acid (Vitamin C 500 Mg Tab) 500 mg PO DAILY [facility] Last Admin: 08/25/16 09:20 Dose: 500 mg Baclofen (Lioresal) 20 mg PO TID [facility] Last Admin: 08/25/16 09:19 Dose: 20 mg Bisacodyl (Dulcolax) 5 mg PO DAILY PRN PRN Reason: Constipation Meropenem 1g/NS 100mL IVPB (Meropenem 1g/Ns 100ml Ivpb) 1 gm in 100 mls @ 100 mls/hr IVPB Q8 [facility] PRN Reason: Protocol Stop: 08/27/16 06:01 Last Admin: 08/25/16 06:03 Dose: 100 mls/hr Metoprolol Tartrate (Lopressor) 25 mg PO BID [facility] Last Admin: 08/25/16 09:20 Dose: 25 mg Miconazole Nitrate (Miconazole 2% Cream) 0 ea TOP BID [facility] Last Admin: 08/25/16 09:20 Dose: 1 applic Multivitamins/Minerals (Therapeutic-M Tab) 1 tab PO DAILY [facility] Last Admin: 08/25/16 09:20 Dose: 1 tab Nicotine (Nicoderm Cq) 1 patch TD DAILY [facility] Last Admin: 08/25/16 09:20 Dose: Not Given Ondansetron HCl (Zofran Inj) 4 mg IVP Q6H PRN PRN Reason: Nausea/Vomiting Pantoprazole Sodium (Protonix Ec Tab) 40 mg PO ACB [facility] Last Admin: 08/25/16 08:05 Dose: 40 mg Pramipexole Dihydrochloride (Mirapex) 0.25 mg PO TID [facility] Last Admin: 08/25/16 09:20 Dose: 0.25 mg Silver Sulfadiazine (Silvadene 1% 20 Gm) 0 ea TOP BID [facility] Last Admin: 08/25/16 09:20 Dose: 1 applic Warfarin Sodium (Coumadin) 5 mg PO 1800 [facility] PRN Reason: Protocol Last Admin: 08/24/16 17:45 Dose: 5 mg Zinc Sulfate (Zinc Sulfate 220 Mg Cap) 220 mg PO DAILY [facility] Last Admin: 08/25/16 09:20 Dose: 220 mg - Labs Labs: 08/23/16 11:42 08/23/16 11:42 PT 21.0 Seconds (9.9-11.8) H 08/25/16 05:00 INR 1.94 (0.93-1.08) H 08/25/16 05:00 APTT 30.7 Seconds (23.7-30.8) 07/30/16 06:30 - Constitutional Appears: Non-toxic, No Acute Distress - Head Exam Head Exam: ATRAUMATIC - Eye Exam Eye Exam: EOMI - ENT Exam ENT Exam: Mucous Membranes Moist - Respiratory Exam Respiratory Exam: absent: Clear to Ausculation Bilateral, Rales, Rhonchi, Wheezes - Cardiovascular Exam Cardiovascular Exam: REGULAR RHYTHM, +S1, +S2. absent: Gallop, Rubs, Murmur - GI/Abdominal Exam GI & Abdominal Exam: Soft, Normal Bowel Sounds. 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 1. 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 will need to check ESR and CRP this week to see Abx can be stopped on Tramadol prn for pain 2. 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 Boots in place Baclofen 20 mg PO TID Continue Mirapex 3. R LE DVT s/p IVC filter placed INR is therapeutic. Will maintain INR between 2-3 Continue coumadin Will check INR and labs every other day. will continue to monitor for bleeding IVC filter in place 4. Neurogenic bowel vs. ileus: resolved. Full diet but will monitor closely Dulcolax PO and RC PRN 5. Neurogenic bladder Haque changed on 08/25 6. multiple stage 2 pressure ulcer on sacrum and buttock improving air mattress and continue to reposition q2H continue multivit, zinc, vitamin C PO Wound care is following 7. Hematuria Continue to monitor Urology is reconsulted. Changed haque today. Prophylaxis GI ppx- Protonix DVT ppx- coumadin Awaiting assisted care decision Case discussed with attending Dr. Piedra <Tobin Piedra - Last Filed: 08/25/16 14:07> Objective - Vital Signs/Intake and Output Vital Signs (last 24 hours): Temp Pulse Resp BP Pulse Ox 98.8 F 65 20 124/83 94 L 08/25/16 08:00 08/25/16 08:00 08/25/16 08:00 08/25/16 09:20 08/25/16 08:00 Intake and Output: 08/25/16 08/25/16 06:59 18:59 Intake Total 1320 Output Total 400 Balance 920 - Medications Medications: Current Medications Albuterol/Ipratropium (Duoneb 3 Mg/0.5 Mg (3 Ml) Ud) 3 ml IH [id number] [facility] Last Admin: 08/25/16 08:00 Dose: 3 ml Ascorbic Acid (Vitamin C 500 Mg Tab) 500 mg PO DAILY [facility] Last Admin: 08/25/16 09:20 Dose: 500 mg Baclofen (Lioresal) 20 mg PO TID [facility] Last Admin: 08/25/16 13:49 Dose: 20 mg Bisacodyl (Dulcolax) 5 mg PO DAILY PRN PRN Reason: Constipation Meropenem 1g/NS 100mL IVPB (Meropenem 1g/Ns 100ml Ivpb) 1 gm in 100 mls @ 100 mls/hr IVPB Q8 [facility] PRN Reason: Protocol Stop: 08/27/16 06:01 Last Admin: 08/25/16 13:49 Dose: 100 mls/hr Metoprolol Tartrate (Lopressor) 25 mg PO BID [facility] Last Admin: 08/25/16 09:20 Dose: 25 mg Miconazole Nitrate (Miconazole 2% Cream) 0 ea TOP BID [facility] Last Admin: 08/25/16 09:20 Dose: 1 applic Multivitamins/Minerals (Therapeutic-M Tab) 1 tab PO DAILY [facility] Last Admin: 08/25/16 09:20 Dose: 1 tab Nicotine (Nicoderm Cq) 1 patch TD DAILY [facility] Last Admin: 08/25/16 09:20 Dose: Not Given Ondansetron HCl (Zofran Inj) 4 mg IVP Q6H PRN PRN Reason: Nausea/Vomiting Pantoprazole Sodium (Protonix Ec Tab) 40 mg PO ACB [facility] Last Admin: 08/25/16 08:05 Dose: 40 mg Pramipexole Dihydrochloride (Mirapex) 0.25 mg PO TID [facility] Last Admin: 08/25/16 13:49 Dose: 0.25 mg Silver Sulfadiazine (Silvadene 1% 20 Gm) 0 ea TOP BID [facility] Last Admin: 08/25/16 09:20 Dose: 1 applic Warfarin Sodium (Coumadin) 5 mg PO 1800 [facility] PRN Reason: Protocol Last Admin: 08/24/16 17:45 Dose: 5 mg Zinc Sulfate (Zinc Sulfate 220 Mg Cap) 220 mg PO DAILY [facility] Last Admin: 08/25/16 09:20 Dose: 220 mg - Labs Labs: 08/23/16 11:42 08/23/16 11:42 PT 21.0 Seconds (9.9-11.8) H 08/25/16 05:00 INR 1.94 (0.93-1.08) H 08/25/16 05:00 APTT 30.7 Seconds (23.7-30.8) 07/30/16 06:30 Attending/Attestation - Attestation I have personally seen and examined this patient.: Yes I have fully participated in the care of the patient.: Yes I have reviewed all pertinent clinical information, including history, physical exam and plan: Yes Notes (Text): 08/25/16 14:05 Attending note; Patient seen and examined with resident. This is a 51 year old male with history of substance abuse (snorts cocaine), tobacco, alcohol use who got admitted for evaluation of back pain and found to have epidural abscess T1-T5, osteomyelitis, urinary retention and acute RLE DVT s/p IVC filter on coumadin. He underwent emergent laminectomy and epidural abscess was drained. 1-Epidural space abscess s/p lamenectomy T2-T4: Continue meropenem as per ID for one more week. 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 Frequent repositioning. 3-Involuntary movements of bilateral lower extremities: Continue baclofen and mirapex. 4-Right LE DVT s/p IVC filter: INR therapeutic. Continue coumadin. 5-Hematuria: Hb is stable. Continue coumadin. Haque catheter changed by Dr. Iqbal today. 6-Multiple stage 2 ulcer on sacrum and buttocks area: Improving. Continue air mattress, frequent repositioning, MVI, zinc and vitamin C. Continue wound care. 7-GI prophylaxis: continue protonix. 8-DVT prophylaxis: continue coumadin. 9-Dispo: Awaiting concert promoter placement.
--- NOTE | 2016-08-25 13:29 | PN ---
DATE: 08/25/2016 The patient was seen earlier, no acute distress. PHYSICAL EXAMINATION: VITAL SIGNS: Temperature is 98, blood pressure is 120/80, respiratory rate of 20. HEENT: Unremarkable. NECK: Supple. LUNGS: Have decreased breath sounds. HEART: Normal S1, S2. ABDOMEN: Soft, nontender. LABORATORY DATA: Noted. ASSESSMENT AND PLAN: This is a 51-year-old who was admitted with an epidural abscess secondary to St reptococcus pneumoniae, cord compression, lower extremity paralysis, status post neurosurgery drainag e of an abscess which grew Streptococcus pneumoniae. Currently on meropenem. Will follow closely wi th you. The patient did have rash on the ceftriaxone. Colt Coronel MD cc: [phone] TT: 08/25/2016 13:29:06 Confirmation # [id number] Dictation # [id number] nj
[2016-08-26] MEDS: Albuterol-Ipratrop 3 mg / 0.5 (3 ml) UD IH SCH ×4 (04:48→19:40)
[2016-08-26] MEDS: Meropenem 1g/NS 100mL IVPB 1 GM/100 ML PIGGYBACK IVPB SCH ×3 (05:42→22:22)
[2016-08-26] MEDS: Pantoprazole 40 mg EC Tab PO SCH (08:13)
[2016-08-26] MEDS: Miconazole 2% Cream(30 gm) TOP SCH ×2 (09:35→18:31)
[2016-08-26] MEDS: Silver Sulfadiazine 1% Cream (20 gm) TOP SCH ×2 (09:35→18:31)
[2016-08-26] MEDS: Multivitamin With Minerals Tab PO SCH (09:37)
--- NOTE | 2016-08-26 11:04 | CP.PCM.PN ---
<Keri Guzman - Last Filed: 08/26/16 11:00> Subjective - Date & Time of Evaluation Date of Evaluation: 08/26/16 Time of Evaluation: 11:00 - Subjective Subjective: HOSPITALISTS PROGRESS NOTE Pt is seen and examined at bedside. No acute events overnight. Mackenzie in place and draining herb colored urine. Hematuria has resolved. Denies having any CP , SOB, abd pain, N/V. Patient is tolerating diet and having daily BMs. Patient is tolerating physical therapy very well. Objective - Vital Signs/Intake and Output Vital Signs (last 24 hours): Temp Pulse Resp BP Pulse Ox 98.5 F 65 20 129/71 98 08/26/16 08:16 08/26/16 09:35 08/26/16 08:16 08/26/16 09:35 08/26/16 08:16 Intake and Output: 08/26/16 08/26/16 06:59 18:59 Intake Total 900 Output Total 700 Balance 200 - Medications Medications: Current Medications Albuterol/Ipratropium (Duoneb 3 Mg/0.5 Mg (3 Ml) Ud) 3 ml IH [id number] [facility] Last Admin: 08/26/16 08:30 Dose: 3 ml Ascorbic Acid (Vitamin C 500 Mg Tab) 500 mg PO DAILY [facility] Last Admin: 08/26/16 09:35 Dose: 500 mg Baclofen (Lioresal) 20 mg PO TID [facility] Last Admin: 08/26/16 09:35 Dose: 20 mg Bisacodyl (Dulcolax) 5 mg PO DAILY PRN PRN Reason: Constipation Meropenem 1g/NS 100mL IVPB (Meropenem 1g/Ns 100ml Ivpb) 1 gm in 100 mls @ 100 mls/hr IVPB Q8 [facility] PRN Reason: Protocol Stop: 08/27/16 06:01 Last Admin: 08/26/16 05:42 Dose: 100 mls/hr Metoprolol Tartrate (Lopressor) 25 mg PO BID [facility] Last Admin: 08/26/16 09:35 Dose: 25 mg Miconazole Nitrate (Miconazole 2% Cream) 0 ea TOP BID [facility] Last Admin: 08/26/16 09:35 Dose: 1 applic Multivitamins/Minerals (Therapeutic-M Tab) 1 tab PO DAILY [facility] Last Admin: 08/26/16 09:37 Dose: 1 tab Ondansetron HCl (Zofran Inj) 4 mg IVP Q6H PRN PRN Reason: Nausea/Vomiting Pantoprazole Sodium (Protonix Ec Tab) 40 mg PO ACB [facility] Last Admin: 08/26/16 08:13 Dose: 40 mg Pramipexole Dihydrochloride (Mirapex) 0.25 mg PO TID [facility] Last Admin: 08/26/16 09:35 Dose: 0.25 mg Silver Sulfadiazine (Silvadene 1% 20 Gm) 0 ea TOP BID [facility] Last Admin: 08/26/16 09:35 Dose: 1 applic Warfarin Sodium (Coumadin) 5 mg PO 1800 [facility] PRN Reason: Protocol Last Admin: 08/25/16 17:17 Dose: 5 mg Zinc Sulfate (Zinc Sulfate 220 Mg Cap) 220 mg PO DAILY [facility] Last Admin: 08/26/16 09:36 Dose: 220 mg - Labs Labs: 08/23/16 11:42 08/23/16 11:42 PT 21.0 Seconds (9.9-11.8) H 08/25/16 05:00 INR 1.94 (0.93-1.08) H 08/25/16 05:00 APTT 30.7 Seconds (23.7-30.8) 07/30/16 06:30 - Constitutional Appears: Non-toxic, No Acute Distress - Head Exam Head Exam: ATRAUMATIC - ENT Exam ENT Exam: Mucous Membranes Moist - Respiratory Exam Respiratory Exam: Wheezes. absent: Accessory Muscle Use, Rales, Rhonchi, Respiratory Distress - Cardiovascular Exam Cardiovascular Exam: REGULAR RHYTHM, +S1, +S2. absent: Gallop, Rubs, Murmur - GI/Abdominal Exam GI & Abdominal Exam: Soft, Normal Bowel Sounds. 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 1. 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 will need to check ESR and CRP this week to see Abx can be stopped on Tramadol prn for pain 2. 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 Boots in place Baclofen 20 mg PO TID Continue Mirapex Will reconsult neuro, Dr. Koch for discussion of patient progression with sensation and movement. 3. R LE DVT s/p IVC filter placed INR is therapeutic. Will maintain INR between 2-3 Continue coumadin Will check INR and labs every other day. will continue to monitor for bleeding IVC filter in place 4. Neurogenic bowel vs. ileus: resolved. Full diet but will monitor closely Dulcolax PO and RC PRN 5. Neurogenic bladder Mackenzie changed on 08/25 6. multiple stage 2 pressure ulcer on sacrum and buttock improving air mattress and continue to reposition q2H continue multivit, zinc, vitamin C PO Wound care is following 7. Hematuria Resolved Prophylaxis GI ppx- Protonix DVT ppx- coumadin Awaiting technician terminal and repeater care decision Case discussed with attending Dr. Piedra <Tobin Piedra - Last Filed: 08/26/16 15:15> Objective - Vital Signs/Intake and Output Vital Signs (last 24 hours): Temp Pulse Resp BP Pulse Ox 98.5 F 65 20 129/71 98 08/26/16 08:16 08/26/16 09:35 08/26/16 08:16 08/26/16 09:35 08/26/16 08:16 Intake and Output: 08/26/16 08/26/16 06:59 18:59 Intake Total 900 Output Total 700 Balance 200 - Medications Medications: Current Medications Albuterol/Ipratropium (Duoneb 3 Mg/0.5 Mg (3 Ml) Ud) 3 ml IH [id number] [facility] Last Admin: 08/26/16 13:22 Dose: 3 ml Ascorbic Acid (Vitamin C 500 Mg Tab) 500 mg PO DAILY [facility] Last Admin: 08/26/16 09:35 Dose: 500 mg Baclofen (Lioresal) 20 mg PO TID [facility] Last Admin: 08/26/16 13:27 Dose: 20 mg Bisacodyl (Dulcolax) 5 mg PO DAILY PRN PRN Reason: Constipation Meropenem 1g/NS 100mL IVPB (Meropenem 1g/Ns 100ml Ivpb) 1 gm in 100 mls @ 100 mls/hr IVPB Q8 [facility] PRN Reason: Protocol Stop: 08/27/16 06:01 Last Admin: 08/26/16 13:27 Dose: 100 mls/hr Metoprolol Tartrate (Lopressor) 25 mg PO BID [facility] Last Admin: 08/26/16 09:35 Dose: 25 mg Miconazole Nitrate (Miconazole 2% Cream) 0 ea TOP BID [facility] Last Admin: 08/26/16 09:35 Dose: 1 applic Multivitamins/Minerals (Therapeutic-M Tab) 1 tab PO DAILY [facility] Last Admin: 08/26/16 09:37 Dose: 1 tab Ondansetron HCl (Zofran Inj) 4 mg IVP Q6H PRN PRN Reason: Nausea/Vomiting Pantoprazole Sodium (Protonix Ec Tab) 40 mg PO ACB [facility] Last Admin: 08/26/16 08:13 Dose: 40 mg Pramipexole Dihydrochloride (Mirapex) 0.25 mg PO TID [facility] Last Admin: 08/26/16 13:27 Dose: 0.25 mg Silver Sulfadiazine (Silvadene 1% 20 Gm) 0 ea TOP BID [facility] Last Admin: 08/26/16 09:35 Dose: 1 applic Warfarin Sodium (Coumadin) 5 mg PO 1800 [facility] PRN Reason: Protocol Last Admin: 08/25/16 17:17 Dose: 5 mg Zinc Sulfate (Zinc Sulfate 220 Mg Cap) 220 mg PO DAILY [facility] Last Admin: 08/26/16 09:36 Dose: 220 mg - Labs Labs: 08/23/16 11:42 08/23/16 11:42 PT 21.0 Seconds (9.9-11.8) H 08/25/16 05:00 INR 1.94 (0.93-1.08) H 08/25/16 05:00 APTT 30.7 Seconds (23.7-30.8) 07/30/16 06:30 Attending/Attestation - Attestation I have personally seen and examined this patient.: Yes I have fully participated in the care of the patient.: Yes I have reviewed all pertinent clinical information, including history, physical exam and plan: Yes Notes (Text): 08/26/16 15:14 Attending note; Patient seen and examined with resident. This is a 51 year old male with history of substance abuse (snorts cocaine), tobacco, alcohol use who got admitted for evaluation of back pain and found to have epidural abscess T1-T5, osteomyelitis, urinary retention and acute RLE DVT s/p IVC filter on coumadin. He underwent emergent laminectomy and epidural abscess was drained. 1-Epidural space abscess s/p lamenectomy T2-T4: Continue meropenem as per ID. repeat ESR and CRP ordered for tomorrow. 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 Frequent repositioning. 3-Involuntary movements of bilateral lower extremities: Continue baclofen and mirapex. 4-Right LE DVT s/p IVC filter: INR therapeutic. Continue coumadin. 5-Hematuria: resolved. Hb is stable. . Mackenzie catheter changed by Dr. Iqbal yesterday. 6-Multiple stage 2 ulcer on sacrum and buttocks area: Improving. Continue air mattress, frequent repositioning, MVI, zinc and vitamin C. Continue wound care. 7-GI prophylaxis: continue protonix. 8-DVT prophylaxis: continue coumadin. case discussed with social media community manager in detail for discharge planning.
--- NOTE | 2016-08-26 13:45 | CP.PCM.PN ---
Subjective - Date & Time of Evaluation Date of Evaluation: 08/26/16 Time of Evaluation: 11:45 - Subjective Subjective: Comfortable, afebrile, not in distress. Objective - Vital Signs/Intake and Output Vital Signs (last 24 hours): Temp Pulse Resp BP Pulse Ox 98.5 F 65 20 129/71 98 08/26/16 08:16 08/26/16 09:35 08/26/16 08:16 08/26/16 09:35 08/26/16 08:16 Intake and Output: 08/26/16 08/26/16 06:59 18:59 Intake Total 900 Output Total 700 Balance 200 - Medications Medications: Current Medications Albuterol/Ipratropium (Duoneb 3 Mg/0.5 Mg (3 Ml) Ud) 3 ml IH [id number] [facility] Last Admin: 08/26/16 13:22 Dose: 3 ml Ascorbic Acid (Vitamin C 500 Mg Tab) 500 mg PO DAILY [facility] Last Admin: 08/26/16 09:35 Dose: 500 mg Baclofen (Lioresal) 20 mg PO TID [facility] Last Admin: 08/26/16 13:27 Dose: 20 mg Bisacodyl (Dulcolax) 5 mg PO DAILY PRN PRN Reason: Constipation Meropenem 1g/NS 100mL IVPB (Meropenem 1g/Ns 100ml Ivpb) 1 gm in 100 mls @ 100 mls/hr IVPB Q8 [facility] PRN Reason: Protocol Stop: 08/27/16 06:01 Last Admin: 08/26/16 13:27 Dose: 100 mls/hr Metoprolol Tartrate (Lopressor) 25 mg PO BID [facility] Last Admin: 08/26/16 09:35 Dose: 25 mg Miconazole Nitrate (Miconazole 2% Cream) 0 ea TOP BID [facility] Last Admin: 08/26/16 09:35 Dose: 1 applic Multivitamins/Minerals (Therapeutic-M Tab) 1 tab PO DAILY [facility] Last Admin: 08/26/16 09:37 Dose: 1 tab Ondansetron HCl (Zofran Inj) 4 mg IVP Q6H PRN PRN Reason: Nausea/Vomiting Pantoprazole Sodium (Protonix Ec Tab) 40 mg PO ACB [facility] Last Admin: 08/26/16 08:13 Dose: 40 mg Pramipexole Dihydrochloride (Mirapex) 0.25 mg PO TID [facility] Last Admin: 08/26/16 13:27 Dose: 0.25 mg Silver Sulfadiazine (Silvadene 1% 20 Gm) 0 ea TOP BID [facility] Last Admin: 08/26/16 09:35 Dose: 1 applic Warfarin Sodium (Coumadin) 5 mg PO 1800 [facility] PRN Reason: Protocol Last Admin: 08/25/16 17:17 Dose: 5 mg Zinc Sulfate (Zinc Sulfate 220 Mg Cap) 220 mg PO DAILY [facility] Last Admin: 08/26/16 09:36 Dose: 220 mg - Labs Labs: 08/23/16 11:42 08/23/16 11:42 PT 21.0 Seconds (9.9-11.8) H 08/25/16 05:00 INR 1.94 (0.93-1.08) H 08/25/16 05:00 APTT 30.7 Seconds (23.7-30.8) 07/30/16 06:30 - Constitutional Appears: Non-toxic, No Acute Distress - Head Exam Head Exam: NORMAL INSPECTION - Respiratory Exam Respiratory Exam: Decreased Breath Sounds - Cardiovascular Exam Cardiovascular Exam: +S1, +S2 - GI/Abdominal Exam GI & Abdominal Exam: Soft. 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 with associated cord compression and lower extremity paralysis S/P neurosurgery for abscess drainage and laminectomy POD #49 Possible drug reaction to Rocephin Partial small bowel obstruction, clinically improved significant smoking history alcohol abuse obesity with BMI 40 Plan continue Merrem despite completing 6 weeks of therapy because the CRP is still elevated - will monitor ESR, CRP weekly (will get tomorrow) Will continue to follow clinically
[2016-08-27] MEDS: Albuterol-Ipratrop 3 mg / 0.5 (3 ml) UD IH SCH ×4 (01:15→19:43)
--- NOTE | 2016-08-27 02:16 | PCM.URO ---
Urology Progress Note - Objective Intake & Output: Intake & Output 08/26/16 08/26/16 08/27/16 06:59 18:59 06:59 Intake Total 900 1300 480 Output Total 700 600 400 Balance 200 700 80 Intake: IV 100 Right Antecubital 100 Oral 900 1200 480 Output: Urine 700 600 400 Urethral (Mackenzie) 700 600 400 Other: # Bowel Movements 1 2 1 Vital Signs: Vital Signs - 24 hr 08/26/16 08/26/16 08/26/16 08:00 08:16 09:35 Temperature 98.5 F 98.5 F Pulse Rate 65 65 65 Respiratory 20 20 Rate Blood Pressure 129/71 129/71 129/71 O2 Sat by Pulse 98 98 Oximetry 08/26/16 08/26/16 16:00 18:31 Temperature 97.7 F Pulse Rate 58 L 61 Respiratory 20 Rate Blood Pressure 114/68 121/80 O2 Sat by Pulse 96 Oximetry
[2016-08-27] MEDS: Meropenem 1g/NS 100mL IVPB 1 GM/100 ML PIGGYBACK IVPB SCH ×2 (06:04→21:35)
[2016-08-27 07:00] LABS: HEMOGLOBIN 11.9 gm/dL (14.0-18.0); MEAN CELL VOLUME 87.2 fL (80.0-105.0); MEAN CORPUSCULAR HEMOGLOBIN 29.4 pg (25.0-35.0); MEAN CORPUSCULAR HGB CONC 33.7 g/dl (31.0-37.0); MEAN PLATELET VOLUME 11.3 fl (7.0-11.0); RBC 4.05 10^6/uL (3.5-6.1); RED CELL DISTRIBUTION WIDTH 13.9 % (11.5-14.5); WHITE BLOOD COUNT 6.2 10^3/ul (4.5-11.0)
[2016-08-27 07:08] LABS: INR 1.89 (0.93-1.08); PROTHROMBIN TIME 20.4 Seconds (9.9-11.8)
[2016-08-27 07:09] LABS: BLOOD UREA NITROGEN 10 mg/dL (7-21); CALCIUM 9.3 mg/dL (8.4-10.5); GFR AFRICAN-AMERICAN > 60; GFR NON-AFRICAN AMERICAN > 60
[2016-08-27] MEDS: Pantoprazole 40 mg EC Tab PO SCH (08:17)
[2016-08-27] MEDS: Silver Sulfadiazine 1% Cream (20 gm) TOP SCH ×2 (09:24→17:28)
[2016-08-27] MEDS: Miconazole 2% Cream(30 gm) TOP SCH ×2 (09:24→17:28)
[2016-08-27] MEDS: Multivitamin With Minerals Tab PO SCH (09:25)
--- NOTE | 2016-08-27 09:48 | CP.PCM.PN ---
<Keri Guzman - Last Filed: 08/27/16 09:40> Subjective - Date & Time of Evaluation Date of Evaluation: 08/27/16 Time of Evaluation: 09:41 - Subjective Subjective: HOSPITALISTS PROGRESS NOTE Pt is seen and examined at bedside. No acute events overnight. Patient denies having any CP, SOB, abd abd, N/v/D/C. Patient continues ot have fasiculations in LE. Patient is tolerating diet and having regular BMs. Objective - Vital Signs/Intake and Output Vital Signs (last 24 hours): Temp Pulse Resp BP Pulse Ox 98.1 F 62 20 133/83 95 08/27/16 08:20 08/27/16 09:26 08/27/16 08:20 08/27/16 09:26 08/27/16 08:20 Intake and Output: 08/27/16 08/27/16 06:59 18:59 Intake Total 480 240 Output Total 800 Balance -320 240 - Medications Medications: Current Medications Albuterol/Ipratropium (Duoneb 3 Mg/0.5 Mg (3 Ml) Ud) 3 ml IH [id number] [facility] Last Admin: 08/27/16 07:27 Dose: 3 ml Ascorbic Acid (Vitamin C 500 Mg Tab) 500 mg PO DAILY [facility] Last Admin: 08/27/16 09:25 Dose: 500 mg Baclofen (Lioresal) 20 mg PO TID [facility] Last Admin: 08/27/16 09:24 Dose: 20 mg Bisacodyl (Dulcolax) 5 mg PO DAILY PRN PRN Reason: Constipation Metoprolol Tartrate (Lopressor) 25 mg PO BID [facility] Last Admin: 08/27/16 09:26 Dose: 25 mg Miconazole Nitrate (Miconazole 2% Cream) 0 ea TOP BID [facility] Last Admin: 08/27/16 09:24 Dose: 1 applic Multivitamins/Minerals (Therapeutic-M Tab) 1 tab PO DAILY [facility] Last Admin: 08/27/16 09:25 Dose: 1 tab Ondansetron HCl (Zofran Inj) 4 mg IVP Q6H PRN PRN Reason: Nausea/Vomiting Pantoprazole Sodium (Protonix Ec Tab) 40 mg PO ACB [facility] Last Admin: 08/27/16 08:17 Dose: 40 mg Pramipexole Dihydrochloride (Mirapex) 0.25 mg PO TID [facility] Last Admin: 08/27/16 09:24 Dose: 0.25 mg Silver Sulfadiazine (Silvadene 1% 20 Gm) 0 ea TOP BID [facility] Last Admin: 08/27/16 09:24 Dose: 1 applic Warfarin Sodium (Coumadin) 5 mg PO 1800 [facility] PRN Reason: Protocol Last Admin: 08/26/16 18:30 Dose: 5 mg Zinc Sulfate (Zinc Sulfate 220 Mg Cap) 220 mg PO DAILY [facility] Last Admin: 08/27/16 09:25 Dose: 220 mg - Labs Labs: 08/27/16 06:40 08/27/16 06:40 PT 20.4 Seconds (9.9-11.8) H 08/27/16 06:40 INR 1.89 (0.93-1.08) H 08/27/16 06:40 APTT 30.7 Seconds (23.7-30.8) 07/30/16 06:30 - Constitutional Appears: Non-toxic, No Acute Distress - Head Exam Head Exam: ATRAUMATIC - Eye Exam Eye Exam: EOMI - ENT Exam ENT Exam: Mucous Membranes Moist - Respiratory Exam Respiratory Exam: Rales, Rhonchi. absent: Accessory Muscle Use, Wheezes, Respiratory Distress - Cardiovascular Exam Cardiovascular Exam: REGULAR RHYTHM, +S1, +S2. absent: Gallop, Rubs, Murmur - GI/Abdominal Exam GI & Abdominal Exam: Soft, Normal Bowel Sounds. 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 1. 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 will continue to monitor for signs of infection on Tramadol prn for pain 2. 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 Boots in place Baclofen 20 mg PO TID Continue Mirapex Reconsulted neuro, Dr. Koch for discussion of patient progression with sensation and movement. 3. R LE DVT s/p IVC filter placed INR is therapeutic. Will maintain INR between 2-3 Continue coumadin Will check INR and labs every other day. will continue to monitor for bleeding IVC filter in place 4. Neurogenic bowel vs. ileus: resolved. Full diet but will monitor closely Dulcolax PO and RC PRN 5. Neurogenic bladder Mackenzie changed on 08/25 6. multiple stage 2 pressure ulcer on sacrum and buttock improving air mattress and continue to reposition q2H continue multivit, zinc, vitamin C PO Wound care is following Prophylaxis GI ppx- Protonix DVT ppx- coumadin Awaiting retirement care decision Case discussed with attending Dr. Piedra <Tobin Piedra - Last Filed: 08/27/16 17:01> Objective - Vital Signs/Intake and Output Vital Signs (last 24 hours): Temp Pulse Resp BP Pulse Ox 98.1 F 62 20 133/83 95 08/27/16 08:20 08/27/16 09:26 08/27/16 08:20 08/27/16 09:26 08/27/16 08:20 Intake and Output: 08/27/16 08/27/16 06:59 18:59 Intake Total 480 480 Output Total 800 750 Balance -320 -270 - Medications Medications: Current Medications Albuterol/Ipratropium (Duoneb 3 Mg/0.5 Mg (3 Ml) Ud) 3 ml IH [id number] [facility] Last Admin: 08/27/16 13:37 Dose: 3 ml Ascorbic Acid (Vitamin C 500 Mg Tab) 500 mg PO DAILY [facility] Last Admin: 08/27/16 09:25 Dose: 500 mg Baclofen (Lioresal) 20 mg PO TID [facility] Last Admin: 08/27/16 13:22 Dose: 20 mg Bisacodyl (Dulcolax) 5 mg PO DAILY PRN PRN Reason: Constipation Metoprolol Tartrate (Lopressor) 25 mg PO BID [facility] Last Admin: 08/27/16 09:26 Dose: 25 mg Miconazole Nitrate (Miconazole 2% Cream) 0 ea TOP BID [facility] Last Admin: 08/27/16 09:24 Dose: 1 applic Multivitamins/Minerals (Therapeutic-M Tab) 1 tab PO DAILY [facility] Last Admin: 08/27/16 09:25 Dose: 1 tab Ondansetron HCl (Zofran Inj) 4 mg IVP Q6H PRN PRN Reason: Nausea/Vomiting Pantoprazole Sodium (Protonix Ec Tab) 40 mg PO ACB [facility] Last Admin: 08/27/16 08:17 Dose: 40 mg Pramipexole Dihydrochloride (Mirapex) 0.25 mg PO TID [facility] Last Admin: 08/27/16 13:23 Dose: 0.25 mg Silver Sulfadiazine (Silvadene 1% 20 Gm) 0 ea TOP BID [facility] Last Admin: 08/27/16 09:24 Dose: 1 applic Warfarin Sodium (Coumadin) 5 mg PO 1800 [facility] PRN Reason: Protocol Last Admin: 08/26/16 18:30 Dose: 5 mg Zinc Sulfate (Zinc Sulfate 220 Mg Cap) 220 mg PO DAILY [facility] Last Admin: 08/27/16 09:25 Dose: 220 mg - Labs Labs: 08/27/16 06:40 08/27/16 06:40 PT 20.4 Seconds (9.9-11.8) H 08/27/16 06:40 INR 1.89 (0.93-1.08) H 08/27/16 06:40 APTT 30.7 Seconds (23.7-30.8) 07/30/16 06:30 Attending/Attestation - Attestation I have personally seen and examined this patient.: Yes I have fully participated in the care of the patient.: Yes I have reviewed all pertinent clinical information, including history, physical exam and plan: Yes Notes (Text): 08/27/16 16:58 Patient seen and examined with resident. This is a 51 year old male with history of substance abuse (snorts cocaine), tobacco, alcohol use who got admitted for evaluation of back pain and found to have epidural abscess T1-T5, osteomyelitis, urinary retention and acute RLE DVT s/p IVC filter on coumadin. He underwent emergent laminectomy and epidural abscess was drained. 1-Epidural space abscess s/p lamenectomy T2-T4: completed IV meropenem. ESR and CRP improved. 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 Frequent repositioning. 3-Involuntary movements of bilateral lower extremities: Continue baclofen and mirapex. 4-Right LE DVT s/p IVC filter: INR therapeutic. Continue coumadin. 5-Hematuria: resolved. Hb is stable. . Mackenzie catheter changed by Dr. Iqbal yesterday. 6-Multiple stage 2 ulcer on sacrum and buttocks area: Improving. Continue air mattress, frequent repositioning, MVI, zinc and vitamin C. Continue wound care. 7-GI prophylaxis: continue protonix. 8-DVT prophylaxis: continue coumadin. case discussed with aids social worker in detail for discharge planning.
--- NOTE | 2016-08-27 18:40 | CP.PCM.PN ---
Subjective - Date & Time of Evaluation Date of Evaluation: 08/27/16 Time of Evaluation: 10:35 - Subjective Subjective: Comfortable, not in distress, afebrile. Objective - Vital Signs/Intake and Output Vital Signs (last 24 hours): Temp Pulse Resp BP Pulse Ox 98.4 F 64 18 118/74 99 08/27/16 16:00 08/27/16 17:28 08/27/16 16:00 08/27/16 17:28 08/27/16 16:00 Intake and Output: 08/27/16 08/27/16 06:59 18:59 Intake Total 480 480 Output Total 800 750 Balance -320 -270 - Medications Medications: Current Medications Albuterol/Ipratropium (Duoneb 3 Mg/0.5 Mg (3 Ml) Ud) 3 ml IH [id number] [facility] Last Admin: 08/27/16 13:37 Dose: 3 ml Ascorbic Acid (Vitamin C 500 Mg Tab) 500 mg PO DAILY [facility] Last Admin: 08/27/16 09:25 Dose: 500 mg Baclofen (Lioresal) 20 mg PO TID [facility] Last Admin: 08/27/16 17:28 Dose: 20 mg Bisacodyl (Dulcolax) 5 mg PO DAILY PRN PRN Reason: Constipation Meropenem 1g/NS 100mL IVPB (Meropenem 1g/Ns 100ml Ivpb) 100 mls @ 100 mls/hr IVPB Q8 [facility] PRN Reason: Protocol Stop: 09/03/16 22:01 Metoprolol Tartrate (Lopressor) 25 mg PO BID [facility] Last Admin: 08/27/16 17:28 Dose: 25 mg Miconazole Nitrate (Miconazole 2% Cream) 0 ea TOP BID [facility] Last Admin: 08/27/16 17:28 Dose: 1 applic Multivitamins/Minerals (Therapeutic-M Tab) 1 tab PO DAILY [facility] Last Admin: 08/27/16 09:25 Dose: 1 tab Ondansetron HCl (Zofran Inj) 4 mg IVP Q6H PRN PRN Reason: Nausea/Vomiting Pantoprazole Sodium (Protonix Ec Tab) 40 mg PO ACB [facility] Last Admin: 08/27/16 08:17 Dose: 40 mg Pramipexole Dihydrochloride (Mirapex) 0.25 mg PO TID [facility] Last Admin: 08/27/16 17:28 Dose: 0.25 mg Silver Sulfadiazine (Silvadene 1% 20 Gm) 0 ea TOP BID [facility] Last Admin: 08/27/16 17:28 Dose: 1 applic Warfarin Sodium (Coumadin) 5 mg PO 1800 [facility] PRN Reason: Protocol Last Admin: 08/27/16 17:28 Dose: 5 mg Zinc Sulfate (Zinc Sulfate 220 Mg Cap) 220 mg PO DAILY [facility] Last Admin: 08/27/16 09:25 Dose: 220 mg - Labs Labs: 08/27/16 06:40 08/27/16 06:40 PT 20.4 Seconds (9.9-11.8) H 08/27/16 06:40 INR 1.89 (0.93-1.08) H 08/27/16 06:40 APTT 30.7 Seconds (23.7-30.8) 07/30/16 06:30 - Constitutional Appears: Non-toxic, No Acute Distress - Head Exam Head Exam: NORMAL INSPECTION - Neck Exam Neck Exam: absent: Meningismus - Respiratory Exam Respiratory Exam: Decreased Breath Sounds - Cardiovascular Exam Cardiovascular Exam: +S1, +S2 - GI/Abdominal Exam GI & Abdominal Exam: Soft. 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 with associated cord compression and lower extremity paralysis S/P neurosurgery for abscess drainage and laminectomy POD #49 Possible drug reaction to Rocephin Partial small bowel obstruction, clinically improved significant smoking history alcohol abuse obesity with BMI 40 Plan continue Merrem despite completing 6 weeks of therapy (now has completed 7 weeks of therapy) because the CRP is still elevated, but the repeat one today has now decreased by half which is a good trend - will continue to monitor ESR, CRP weekly and target normalization or near-normalization of these inflammatory markers Will continue to follow clinically
[2016-08-28] MEDS: Albuterol-Ipratrop 3 mg / 0.5 (3 ml) UD IH SCH ×4 (01:47→19:58)
[2016-08-28] MEDS: Meropenem 1g/NS 100mL IVPB 1 GM/100 ML PIGGYBACK IVPB SCH ×3 (05:33→21:29)
[2016-08-28] MEDS: Pantoprazole 40 mg EC Tab PO SCH (08:46)
[2016-08-28] MEDS: Miconazole 2% Cream(30 gm) TOP SCH ×2 (10:34→17:42)
[2016-08-28] MEDS: Multivitamin With Minerals Tab PO SCH (10:34)
[2016-08-28] MEDS: Silver Sulfadiazine 1% Cream (20 gm) TOP SCH ×2 (10:34→17:42)
--- NOTE | 2016-08-28 11:45 | CP.PCM.PN ---
<Keri Guzman - Last Filed: 08/28/16 11:42> Subjective - Date & Time of Evaluation Date of Evaluation: 08/28/16 Time of Evaluation: 11:42 - Subjective Subjective: HOSPITALISTS PROGRESS NOTE Pt is seen and examined at bedside. No acute events overnight. patient denies having any CP, SOB, abd pain, N/V/D/C. Patient is having regular diet and having regular BMs. Objective - Vital Signs/Intake and Output Vital Signs (last 24 hours): Temp Pulse Resp BP Pulse Ox 98.7 F 90 20 131/79 97 08/28/16 08:00 08/28/16 10:34 08/28/16 08:00 08/28/16 10:34 08/28/16 08:00 Intake and Output: 08/28/16 08/28/16 06:59 18:59 Intake Total 940 Output Total 2400 Balance -1460 - Medications Medications: Current Medications Albuterol/Ipratropium (Duoneb 3 Mg/0.5 Mg (3 Ml) Ud) 3 ml IH [id number] [facility] Last Admin: 08/28/16 08:06 Dose: 3 ml Ascorbic Acid (Vitamin C 500 Mg Tab) 500 mg PO DAILY [facility] Last Admin: 08/28/16 10:34 Dose: 500 mg Baclofen (Lioresal) 20 mg PO TID [facility] Last Admin: 08/28/16 10:33 Dose: 20 mg Bisacodyl (Dulcolax) 5 mg PO DAILY PRN PRN Reason: Constipation Meropenem 1g/NS 100mL IVPB (Meropenem 1g/Ns 100ml Ivpb) 1 gm in 100 mls @ 100 mls/hr IVPB Q8 [facility] PRN Reason: Protocol Stop: 09/03/16 22:01 Last Admin: 08/28/16 05:33 Dose: 100 mls/hr Metoprolol Tartrate (Lopressor) 25 mg PO BID [facility] Last Admin: 08/28/16 10:34 Dose: 25 mg Miconazole Nitrate (Miconazole 2% Cream) 0 ea TOP BID [facility] Last Admin: 08/28/16 10:34 Dose: 1 applic Multivitamins/Minerals (Therapeutic-M Tab) 1 tab PO DAILY [facility] Last Admin: 08/28/16 10:34 Dose: 1 tab Ondansetron HCl (Zofran Inj) 4 mg IVP Q6H PRN PRN Reason: Nausea/Vomiting Pantoprazole Sodium (Protonix Ec Tab) 40 mg PO ACB [facility] Last Admin: 08/28/16 08:46 Dose: 40 mg Pramipexole Dihydrochloride (Mirapex) 0.25 mg PO TID [facility] Last Admin: 08/28/16 10:34 Dose: 0.25 mg Silver Sulfadiazine (Silvadene 1% 20 Gm) 0 ea TOP BID [facility] Last Admin: 08/28/16 10:34 Dose: 1 applic Warfarin Sodium (Coumadin) 7.5 mg PO 1800 [facility] PRN Reason: Protocol Zinc Sulfate (Zinc Sulfate 220 Mg Cap) 220 mg PO DAILY [facility] Last Admin: 08/28/16 10:34 Dose: 220 mg - Labs Labs: 08/27/16 06:40 08/27/16 06:40 PT 20.4 Seconds (9.9-11.8) H 08/27/16 06:40 INR 1.89 (0.93-1.08) H 08/27/16 06:40 APTT 30.7 Seconds (23.7-30.8) 07/30/16 06:30 - Constitutional Appears: Non-toxic, No Acute Distress - Head Exam Head Exam: ATRAUMATIC - Eye Exam Eye Exam: EOMI - ENT Exam ENT Exam: Mucous Membranes Moist - Respiratory Exam Respiratory Exam: Clear to Ausculation Bilateral, NORMAL BREATHING PATTERN. absent: Rales, Rhonchi, Wheezes - Cardiovascular Exam Cardiovascular Exam: REGULAR RHYTHM, +S1, +S2. absent: Gallop, Rubs, Murmur - GI/Abdominal Exam GI & Abdominal Exam: Soft, Normal Bowel Sounds. 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 1. Epidural space abscess s/p lamenectomy T2-T4 on 07/07/16 Per ID, will continue meropenem due to CRP still being elevated. Will continue to monitor CRP/ESR weekly. on Tramadol prn for pain 2. 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 Boots in place Baclofen 20 mg PO TID Continue Mirapex 3. R LE DVT s/p IVC filter placed INR is therapeutic. Will maintain INR between 2-3 Continue coumadin Will check INR and labs every other day. will continue to monitor for bleeding IVC filter in place 4. Neurogenic bowel vs. ileus: resolved. Full diet but will monitor closely Dulcolax PO and RC PRN 5. Neurogenic bladder Mackenzie changed on 08/25 6. multiple stage 2 pressure ulcer on sacrum and buttock improving air mattress and continue to reposition q2H continue multivit, zinc, vitamin C PO Wound care is following Prophylaxis GI ppx- Protonix DVT ppx- coumadin Awaiting care home care decision Case discussed with attending Dr. Piedra <Tobin Piedra - Last Filed: 08/28/16 16:10> Objective - Vital Signs/Intake and Output Vital Signs (last 24 hours): Temp Pulse Resp BP Pulse Ox 98.7 F 90 20 131/79 97 08/28/16 08:00 08/28/16 10:34 08/28/16 08:00 08/28/16 10:34 08/28/16 08:00 Intake and Output: 08/28/16 08/28/16 06:59 18:59 Intake Total 940 640 Output Total 2400 600 Balance -1460 40 - Medications Medications: Current Medications Albuterol/Ipratropium (Duoneb 3 Mg/0.5 Mg (3 Ml) Ud) 3 ml IH [id number] [facility] Last Admin: 08/28/16 13:19 Dose: 3 ml Ascorbic Acid (Vitamin C 500 Mg Tab) 500 mg PO DAILY [facility] Last Admin: 08/28/16 10:34 Dose: 500 mg Baclofen (Lioresal) 20 mg PO TID [facility] Last Admin: 08/28/16 14:38 Dose: 20 mg Bisacodyl (Dulcolax) 5 mg PO DAILY PRN PRN Reason: Constipation Meropenem 1g/NS 100mL IVPB (Meropenem 1g/Ns 100ml Ivpb) 1 gm in 100 mls @ 100 mls/hr IVPB Q8 [facility] PRN Reason: Protocol Stop: 09/03/16 22:01 Last Admin: 08/28/16 14:38 Dose: 100 mls/hr Metoprolol Tartrate (Lopressor) 25 mg PO BID [facility] Last Admin: 08/28/16 10:34 Dose: 25 mg Miconazole Nitrate (Miconazole 2% Cream) 0 ea TOP BID [facility] Last Admin: 08/28/16 10:34 Dose: 1 applic Multivitamins/Minerals (Therapeutic-M Tab) 1 tab PO DAILY [facility] Last Admin: 08/28/16 10:34 Dose: 1 tab Ondansetron HCl (Zofran Inj) 4 mg IVP Q6H PRN PRN Reason: Nausea/Vomiting Pantoprazole Sodium (Protonix Ec Tab) 40 mg PO ACB [facility] Last Admin: 08/28/16 08:46 Dose: 40 mg Pramipexole Dihydrochloride (Mirapex) 0.25 mg PO TID [facility] Last Admin: 08/28/16 14:38 Dose: 0.25 mg Silver Sulfadiazine (Silvadene 1% 20 Gm) 0 ea TOP BID [facility] Last Admin: 08/28/16 10:34 Dose: 1 applic Warfarin Sodium (Coumadin) 7.5 mg PO 1800 [facility] PRN Reason: Protocol Zinc Sulfate (Zinc Sulfate 220 Mg Cap) 220 mg PO DAILY [facility] Last Admin: 08/28/16 10:34 Dose: 220 mg - Labs Labs: 08/27/16 06:40 08/27/16 06:40 PT 20.4 Seconds (9.9-11.8) H 08/27/16 06:40 INR 1.89 (0.93-1.08) H 08/27/16 06:40 APTT 30.7 Seconds (23.7-30.8) 07/30/16 06:30 Attending/Attestation - Attestation I have personally seen and examined this patient.: Yes I have fully participated in the care of the patient.: Yes I have reviewed all pertinent clinical information, including history, physical exam and plan: Yes Notes (Text): 08/28/16 16:07 Patient seen and examined with resident. This is a 51 year old male with history of substance abuse (snorts cocaine), tobacco, alcohol use who got admitted for evaluation of back pain and found to have epidural abscess T1-T5, osteomyelitis, urinary retention and acute RLE DVT s/p IVC filter on coumadin. He underwent emergent laminectomy and epidural abscess was drained. 1-Epidural space abscess s/p lamenectomy T2-T4: continue IV meropenem per ID. ESR and CRP improved. 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 Frequent repositioning. 3-Involuntary movements of bilateral lower extremities: Continue baclofen and mirapex. 4-Right LE DVT s/p IVC filter: INR subtherapeutic. coumadin dosage increased. 5-Hematuria: resolved. Hb is stable. . Mackenzie catheter changed by Dr. Iqbal. 6-Multiple stage 2 ulcer on sacrum and buttocks area: Improving. Continue air mattress, frequent repositioning, MVI, zinc and vitamin C. Continue wound care. 7-GI prophylaxis: on protonix. 8-DVT prophylaxis: on coumadin. case discussed with social work instructor in detail for discharge planning.
[2016-08-29] MEDS: Albuterol-Ipratrop 3 mg / 0.5 (3 ml) UD IH SCH ×4 (01:32→20:03)
[2016-08-29] MEDS: Meropenem 1g/NS 100mL IVPB 1 GM/100 ML PIGGYBACK IVPB SCH ×3 (05:17→22:43)
--- NOTE | 2016-08-29 08:07 | CP.PCM.PN ---
<Keri Guzman - Last Filed: 08/29/16 10:55> Subjective - Date & Time of Evaluation Date of Evaluation: 08/29/16 Time of Evaluation: 08:05 - Subjective Subjective: HOSPITLAISTS PROGRESS NOTE Pt is seen and examined at bedside. No acute events overnight. Patient denies having any CP, SOB, abd pain, N/V/D/C. Patient is tolerating diet and having regular BMs. Objective - Vital Signs/Intake and Output Vital Signs (last 24 hours): Temp Pulse Resp BP Pulse Ox 98 F 69 20 117/65 98 08/28/16 16:00 08/28/16 17:41 08/28/16 16:00 08/28/16 17:41 08/28/16 16:00 Intake and Output: 08/29/16 08/29/16 06:59 18:59 Intake Total 960 Output Total 700 Balance 260 - Medications Medications: Current Medications Albuterol/Ipratropium (Duoneb 3 Mg/0.5 Mg (3 Ml) Ud) 3 ml IH [id number] [facility] Last Admin: 08/29/16 07:25 Dose: 3 ml Ascorbic Acid (Vitamin C 500 Mg Tab) 500 mg PO DAILY [facility] Last Admin: 08/28/16 10:34 Dose: 500 mg Baclofen (Lioresal) 20 mg PO TID [facility] Last Admin: 08/28/16 17:41 Dose: 20 mg Bisacodyl (Dulcolax) 5 mg PO DAILY PRN PRN Reason: Constipation Meropenem 1g/NS 100mL IVPB (Meropenem 1g/Ns 100ml Ivpb) 1 gm in 100 mls @ 100 mls/hr IVPB Q8 [facility] PRN Reason: Protocol Stop: 09/03/16 22:01 Last Admin: 08/29/16 05:17 Dose: 100 mls/hr Metoprolol Tartrate (Lopressor) 25 mg PO BID [facility] Last Admin: 08/28/16 17:41 Dose: 25 mg Miconazole Nitrate (Miconazole 2% Cream) 0 ea TOP BID [facility] Last Admin: 08/28/16 17:42 Dose: 1 applic Multivitamins/Minerals (Therapeutic-M Tab) 1 tab PO DAILY [facility] Last Admin: 08/28/16 10:34 Dose: 1 tab Ondansetron HCl (Zofran Inj) 4 mg IVP Q6H PRN PRN Reason: Nausea/Vomiting Pantoprazole Sodium (Protonix Ec Tab) 40 mg PO ACB [facility] Last Admin: 08/28/16 08:46 Dose: 40 mg Pramipexole Dihydrochloride (Mirapex) 0.25 mg PO TID [facility] Last Admin: 08/28/16 17:41 Dose: 0.25 mg Silver Sulfadiazine (Silvadene 1% 20 Gm) 0 ea TOP BID [facility] Last Admin: 08/28/16 17:42 Dose: 1 applic Warfarin Sodium (Coumadin) 7.5 mg PO 1800 [facility] PRN Reason: Protocol Last Admin: 08/28/16 17:41 Dose: 7.5 mg Zinc Sulfate (Zinc Sulfate 220 Mg Cap) 220 mg PO DAILY [facility] Last Admin: 08/28/16 10:34 Dose: 220 mg - Labs Labs: 08/27/16 06:40 08/27/16 06:40 PT 20.4 Seconds (9.9-11.8) H 08/27/16 06:40 INR 1.89 (0.93-1.08) H 08/27/16 06:40 APTT 30.7 Seconds (23.7-30.8) 07/30/16 06:30 - Constitutional Appears: Non-toxic, No Acute Distress - Head Exam Head Exam: ATRAUMATIC - ENT Exam ENT Exam: Mucous Membranes Moist - Respiratory Exam Respiratory Exam: Clear to Ausculation Bilateral. absent: Accessory Muscle Use , Rales, Rhonchi, Wheezes, Respiratory Distress - Cardiovascular Exam Cardiovascular Exam: REGULAR RHYTHM, +S1, +S2. absent: Gallop, Rubs, Murmur - GI/Abdominal Exam GI & Abdominal Exam: Soft, Normal Bowel Sounds. 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 1. 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 Will re-check ESR-CRP on Tramadol prn for pain 2. 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 Boots in place Baclofen 20 mg PO TID Continue Mirapex 3. R LE DVT s/p IVC filter placed INR is therapeutic. Will maintain INR between 2-3 Continue coumadin Will check INR and labs every other day. will continue to monitor for bleeding IVC filter in place 4. Neurogenic bowel vs. ileus: resolved. Full diet but will monitor closely Dulcolax PO and RC PRN 5. Neurogenic bladder Mackenzie in place draining light yellow urine 6. multiple stage 2 pressure ulcer on sacrum and buttock improving air mattress and continue to reposition q2H continue multivit, zinc, vitamin C PO Wound care is following Prophylaxis GI ppx- Protonix DVT ppx- coumadin Awaiting intermediate care decision Case discussed with attending Dr. Piedra <Tobin Piedra - Last Filed: 08/29/16 17:38> Objective - Vital Signs/Intake and Output Vital Signs (last 24 hours): Temp Pulse Resp BP Pulse Ox 98.7 F 64 18 118/75 96 08/29/16 16:00 08/29/16 16:00 08/29/16 16:00 08/29/16 16:00 08/29/16 16:00 Intake and Output: 08/29/16 08/29/16 06:59 18:59 Intake Total 960 Output Total 700 Balance 260 - Medications Medications: Current Medications Albuterol/Ipratropium (Duoneb 3 Mg/0.5 Mg (3 Ml) Ud) 3 ml IH [id number] [facility] Last Admin: 08/29/16 13:17 Dose: 3 ml Ascorbic Acid (Vitamin C 500 Mg Tab) 500 mg PO DAILY [facility] Last Admin: 08/29/16 09:31 Dose: 500 mg Baclofen (Lioresal) 20 mg PO TID [facility] Last Admin: 08/29/16 13:46 Dose: 20 mg Bisacodyl (Dulcolax) 5 mg PO DAILY PRN PRN Reason: Constipation Meropenem 1g/NS 100mL IVPB (Meropenem 1g/Ns 100ml Ivpb) 1 gm in 100 mls @ 100 mls/hr IVPB Q8 [facility] PRN Reason: Protocol Stop: 09/03/16 22:01 Last Admin: 08/29/16 13:45 Dose: 100 mls/hr Metoprolol Tartrate (Lopressor) 25 mg PO BID [facility] Last Admin: 08/29/16 09:30 Dose: 25 mg Miconazole Nitrate (Miconazole 2% Cream) 0 ea TOP BID [facility] Last Admin: 08/29/16 09:31 Dose: 1 applic Multivitamins/Minerals (Therapeutic-M Tab) 1 tab PO DAILY [facility] Last Admin: 08/29/16 09:31 Dose: 1 tab Ondansetron HCl (Zofran Inj) 4 mg IVP Q6H PRN PRN Reason: Nausea/Vomiting Pantoprazole Sodium (Protonix Ec Tab) 40 mg PO ACB [facility] Last Admin: 08/29/16 09:31 Dose: 40 mg Pramipexole Dihydrochloride (Mirapex) 0.25 mg PO TID [facility] Last Admin: 08/29/16 13:46 Dose: 0.25 mg Silver Sulfadiazine (Silvadene 1% 20 Gm) 0 ea TOP BID [facility] Last Admin: 08/29/16 09:31 Dose: 1 applic Warfarin Sodium (Coumadin) 7.5 mg PO 1800 [facility] PRN Reason: Protocol Last Admin: 08/28/16 17:41 Dose: 7.5 mg Zinc Sulfate (Zinc Sulfate 220 Mg Cap) 220 mg PO DAILY [facility] Last Admin: 08/29/16 09:31 Dose: 220 mg - Labs Labs: 08/27/16 06:40 08/27/16 06:40 PT 21.4 Seconds (9.9-11.8) H 08/29/16 07:50 INR 1.98 (0.93-1.08) H 08/29/16 07:50 APTT 30.7 Seconds (23.7-30.8) 07/30/16 06:30 Attending/Attestation - Attestation I have personally seen and examined this patient.: Yes I have fully participated in the care of the patient.: Yes I have reviewed all pertinent clinical information, including history, physical exam and plan: Yes Notes (Text): 08/29/16 17:37 Patient seen and examined with resident. This is a 51 year old male with history of substance abuse (snorts cocaine), tobacco, alcohol use who got admitted for evaluation of back pain and found to have epidural abscess T1-T5, osteomyelitis, urinary retention and acute RLE DVT s/p IVC filter on coumadin. He underwent emergent laminectomy and epidural abscess was drained. 1-Epidural space abscess s/p lamenectomy T2-T4: completed IV meropenem. ESR and CRP improved. 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 Frequent repositioning. 3-Involuntary movements of bilateral lower extremities: Continue baclofen and mirapex. 4-Right LE DVT s/p IVC filter: INR therapeutic. Continue coumadin. 5-Hematuria: resolved. Hb is stable. . Mackenzie catheter changed by Dr. Iqbal yesterday. 6-Multiple stage 2 ulcer on sacrum and buttocks area: Improving. Continue air mattress, frequent repositioning, MVI, zinc and vitamin C. Continue wound care. 7-GI prophylaxis: continue protonix. 8-DVT prophylaxis: continue coumadin. disability paperwork completed. case discussed with social services analyst in detail for discharge planning. 08/29/16 17:38
[2016-08-29 08:28] LABS: INR 1.98 (0.93-1.08); PROTHROMBIN TIME 21.4 Seconds (9.9-11.8)
[2016-08-29] MEDS: Miconazole 2% Cream(30 gm) TOP SCH ×2 (09:31→18:25)
[2016-08-29] MEDS: Silver Sulfadiazine 1% Cream (20 gm) TOP SCH ×2 (09:31→18:25)
[2016-08-29] MEDS: Pantoprazole 40 mg EC Tab PO SCH (09:31)
[2016-08-29] MEDS: Multivitamin With Minerals Tab PO SCH (09:31)
--- NOTE | 2016-08-29 17:13 | CP.PCM.PN ---
Subjective - Date & Time of Evaluation Date of Evaluation: 08/29/16 Time of Evaluation: 10:40 - Subjective Subjective: Comfortable, afebrile. Objective - Vital Signs/Intake and Output Vital Signs (last 24 hours): Temp Pulse Resp BP Pulse Ox 98.5 F 57 L 20 119/74 97 08/29/16 08:00 08/29/16 08:00 08/29/16 08:00 08/29/16 08:00 08/29/16 08:00 Intake and Output: 08/29/16 08/29/16 06:59 18:59 Intake Total 960 Output Total 700 Balance 260 - Medications Medications: Current Medications Albuterol/Ipratropium (Duoneb 3 Mg/0.5 Mg (3 Ml) Ud) 3 ml IH [id number] [facility] Last Admin: 08/29/16 07:25 Dose: 3 ml Ascorbic Acid (Vitamin C 500 Mg Tab) 500 mg PO DAILY [facility] Last Admin: 08/28/16 10:34 Dose: 500 mg Baclofen (Lioresal) 20 mg PO TID [facility] Last Admin: 08/28/16 17:41 Dose: 20 mg Bisacodyl (Dulcolax) 5 mg PO DAILY PRN PRN Reason: Constipation Meropenem 1g/NS 100mL IVPB (Meropenem 1g/Ns 100ml Ivpb) 1 gm in 100 mls @ 100 mls/hr IVPB Q8 [facility] PRN Reason: Protocol Stop: 09/03/16 22:01 Last Admin: 08/29/16 05:17 Dose: 100 mls/hr Metoprolol Tartrate (Lopressor) 25 mg PO BID [facility] Last Admin: 08/28/16 17:41 Dose: 25 mg Miconazole Nitrate (Miconazole 2% Cream) 0 ea TOP BID [facility] Last Admin: 08/28/16 17:42 Dose: 1 applic Multivitamins/Minerals (Therapeutic-M Tab) 1 tab PO DAILY [facility] Last Admin: 08/28/16 10:34 Dose: 1 tab Ondansetron HCl (Zofran Inj) 4 mg IVP Q6H PRN PRN Reason: Nausea/Vomiting Pantoprazole Sodium (Protonix Ec Tab) 40 mg PO ACB [facility] Last Admin: 08/28/16 08:46 Dose: 40 mg Pramipexole Dihydrochloride (Mirapex) 0.25 mg PO TID [facility] Last Admin: 08/28/16 17:41 Dose: 0.25 mg Silver Sulfadiazine (Silvadene 1% 20 Gm) 0 ea TOP BID [facility] Last Admin: 08/28/16 17:42 Dose: 1 applic Warfarin Sodium (Coumadin) 7.5 mg PO 1800 [facility] PRN Reason: Protocol Last Admin: 08/28/16 17:41 Dose: 7.5 mg Zinc Sulfate (Zinc Sulfate 220 Mg Cap) 220 mg PO DAILY [facility] Last Admin: 08/28/16 10:34 Dose: 220 mg - Labs Labs: 08/27/16 06:40 08/27/16 06:40 PT 21.4 Seconds (9.9-11.8) H 08/29/16 07:50 INR 1.98 (0.93-1.08) H 08/29/16 07:50 APTT 30.7 Seconds (23.7-30.8) 07/30/16 06:30 - Constitutional Appears: Non-toxic, No Acute Distress - Head Exam Head Exam: NORMAL INSPECTION - Neck Exam Neck Exam: absent: Lymphadenopathy, Meningismus - Respiratory Exam Respiratory Exam: Decreased Breath Sounds - Cardiovascular Exam Cardiovascular Exam: +S1, +S2 - GI/Abdominal Exam GI & Abdominal Exam: Soft. 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 with associated cord compression and lower extremity paralysis S/P neurosurgery for abscess drainage and laminectomy POD #52 Possible drug reaction to Rocephin Partial small bowel obstruction, clinically improved significant smoking history alcohol abuse obesity with BMI 40 Plan continue Merrem despite completing 6 weeks of therapy (now has completed 7 weeks of therapy) because the CRP is still elevated, but the repeat one today has now decreased by half which is a good trend - will continue to monitor ESR, CRP weekly and target normalization or near-normalization of these inflammatory markers Will continue to follow clinically
--- NOTE | 2016-08-29 18:10 | PCM.URO ---
Urology Progress Note - Objective Lab Results Last 24 Hours: Laboratory Results - last 24 hr 08/29/16 07:50 PT 21.4 H INR 1.98 H Intake & Output: Intake & Output 08/28/16 08/29/16 08/29/16 18:59 06:59 18:59 Intake Total 640 960 Output Total 600 700 Balance 40 260 Intake: IV 300 Right Antecubital 300 Oral 640 660 Output: Urine 600 700 Urethral (Mackenzie) 600 700 Other: # Bowel Movements 1 1 Vital Signs: Vital Signs - 24 hr 08/29/16 08/29/16 08/29/16 08:00 09:30 16:00 Temperature 98.5 F 98.7 F Pulse Rate 57 L 57 L 64 Respiratory 20 18 Rate Blood Pressure 119/74 119/74 118/75 O2 Sat by Pulse 97 96 Oximetry
[2016-08-30] MEDS: Albuterol-Ipratrop 3 mg / 0.5 (3 ml) UD IH SCH ×4 (02:22→20:07)
[2016-08-30] MEDS: Meropenem 1g/NS 100mL IVPB 1 GM/100 ML PIGGYBACK IVPB SCH ×3 (05:27→21:07)
[2016-08-30 07:47] LABS: HEMOGLOBIN 12.2 gm/dL (14.0-18.0); MEAN CELL VOLUME 87.1 fL (80.0-105.0); MEAN CORPUSCULAR HGB CONC 33.3 g/dl (31.0-37.0); MEAN PLATELET VOLUME 12.2 fl (7.0-11.0); RBC 4.2 10^6/uL (3.5-6.1); RED CELL DISTRIBUTION WIDTH 14.1 % (11.5-14.5); WHITE BLOOD COUNT 7.1 10^3/ul (4.5-11.0)
[2016-08-30 07:51] LABS: INR 2.2 (0.93-1.08); PROTHROMBIN TIME 23.8 Seconds (9.9-11.8)
[2016-08-30 07:52] LABS: BLOOD UREA NITROGEN 14 mg/dL (7-21); CALCIUM 9.5 mg/dL (8.4-10.5); GFR AFRICAN-AMERICAN > 60; GFR NON-AFRICAN AMERICAN > 60
[2016-08-30] MEDS: Multivitamin With Minerals Tab PO SCH (09:27)
[2016-08-30] MEDS: Pantoprazole 40 mg EC Tab PO SCH (09:27)
[2016-08-30] MEDS: Silver Sulfadiazine 1% Cream (20 gm) TOP SCH ×2 (10:22→17:11)
[2016-08-30] MEDS: Miconazole 2% Cream(30 gm) TOP SCH ×2 (10:22→17:11)
--- NOTE | 2016-08-30 11:58 | CP.PCM.PN ---
Subjective - Date & Time of Evaluation Date of Evaluation: 08/30/16 Time of Evaluation: 11:45 - Subjective Subjective: Comfortable, not in distress, afebrile. Objective - Vital Signs/Intake and Output Vital Signs (last 24 hours): Temp Pulse Resp BP Pulse Ox 98.3 F 85 20 125/77 95 08/30/16 08:01 08/30/16 09:27 08/30/16 08:01 08/30/16 09:27 08/30/16 08:01 Intake and Output: 08/30/16 08/30/16 06:59 18:59 Intake Total 180 Output Total 500 Balance -320 - Medications Medications: Current Medications Albuterol/Ipratropium (Duoneb 3 Mg/0.5 Mg (3 Ml) Ud) 3 ml IH [id number] [facility] Last Admin: 08/30/16 07:35 Dose: 3 ml Ascorbic Acid (Vitamin C 500 Mg Tab) 500 mg PO DAILY [facility] Last Admin: 08/30/16 09:27 Dose: 500 mg Baclofen (Lioresal) 20 mg PO TID [facility] Last Admin: 08/30/16 09:27 Dose: 20 mg Bisacodyl (Dulcolax) 5 mg PO DAILY PRN PRN Reason: Constipation Meropenem 1g/NS 100mL IVPB (Meropenem 1g/Ns 100ml Ivpb) 1 gm in 100 mls @ 100 mls/hr IVPB Q8 [facility] PRN Reason: Protocol Stop: 09/03/16 22:01 Last Admin: 08/30/16 05:27 Dose: 100 mls/hr Metoprolol Tartrate (Lopressor) 25 mg PO BID [facility] Last Admin: 08/30/16 09:27 Dose: 25 mg Miconazole Nitrate (Miconazole 2% Cream) 0 ea TOP BID [facility] Last Admin: 08/30/16 10:22 Dose: 1 applic Multivitamins/Minerals (Therapeutic-M Tab) 1 tab PO DAILY [facility] Last Admin: 08/30/16 09:27 Dose: 1 tab Ondansetron HCl (Zofran Inj) 4 mg IVP Q6H PRN PRN Reason: Nausea/Vomiting Pantoprazole Sodium (Protonix Ec Tab) 40 mg PO ACB [facility] Last Admin: 08/30/16 09:27 Dose: 40 mg Pramipexole Dihydrochloride (Mirapex) 0.25 mg PO TID [facility] Last Admin: 08/30/16 09:27 Dose: 0.25 mg Silver Sulfadiazine (Silvadene 1% 20 Gm) 0 ea TOP BID [facility] Last Admin: 08/30/16 10:22 Dose: 1 applic Warfarin Sodium (Coumadin) 5 mg PO 1800 [facility] PRN Reason: Protocol Zinc Sulfate (Zinc Sulfate 220 Mg Cap) 220 mg PO DAILY [facility] Last Admin: 08/30/16 09:27 Dose: 220 mg - Labs Labs: 08/30/16 07:15 08/30/16 07:15 PT 23.8 Seconds (9.9-11.8) H 08/30/16 07:15 INR 2.20 (0.93-1.08) H 08/30/16 07:15 APTT 30.7 Seconds (23.7-30.8) 07/30/16 06:30 - Constitutional Appears: Non-toxic, No Acute Distress - Head Exam Head Exam: NORMAL INSPECTION - ENT Exam ENT Exam: Mucous Membranes Moist - Neck Exam Neck Exam: absent: Lymphadenopathy, Meningismus - Respiratory Exam Respiratory Exam: Decreased Breath Sounds - Cardiovascular Exam Cardiovascular Exam: +S1, +S2 - GI/Abdominal Exam GI & Abdominal Exam: Soft. 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 with associated cord compression and lower extremity paralysis and neurogenic bladder S/P neurosurgery for abscess drainage and laminectomy POD #53 Possible drug reaction to Rocephin Partial small bowel obstruction, clinically improved significant smoking history alcohol abuse obesity with BMI 40 Plan continue Merrem despite completing 6 weeks of therapy (now has completed more than 7 weeks of therapy) because the CRP is still elevated, but the repeat one today 08/27/2016 has now decreased by half which is a good trend - will continue to monitor ESR, CRP weekly and target normalization or near-normalization of these inflammatory markers Will continue to monitor clinically
--- NOTE | 2016-08-30 12:03 | CP.PCM.PN ---
<Keri Guzman - Last Filed: 08/30/16 12:00> Subjective - Date & Time of Evaluation Date of Evaluation: 08/30/16 Time of Evaluation: 12:01 - Subjective Subjective: HOSPITALISTS PROGRESS NOTE Pt is seen an dexamined at bedside. No acute events overnight. Patient is resting comfortably. He is tolerating diet and having regular bowel movements. Patient denies having any CP, SOB, abd pain, N/V/D/C. Hematuria has resolved. Objective - Vital Signs/Intake and Output Vital Signs (last 24 hours): Temp Pulse Resp BP Pulse Ox 98.3 F 85 20 125/77 95 08/30/16 08:01 08/30/16 09:27 08/30/16 08:01 08/30/16 09:27 08/30/16 08:01 Intake and Output: 08/30/16 08/30/16 06:59 18:59 Intake Total 180 Output Total 500 Balance -320 - Medications Medications: Current Medications Albuterol/Ipratropium (Duoneb 3 Mg/0.5 Mg (3 Ml) Ud) 3 ml IH [id number] [facility] Last Admin: 08/30/16 07:35 Dose: 3 ml Ascorbic Acid (Vitamin C 500 Mg Tab) 500 mg PO DAILY [facility] Last Admin: 08/30/16 09:27 Dose: 500 mg Baclofen (Lioresal) 20 mg PO TID [facility] Last Admin: 08/30/16 09:27 Dose: 20 mg Bisacodyl (Dulcolax) 5 mg PO DAILY PRN PRN Reason: Constipation Meropenem 1g/NS 100mL IVPB (Meropenem 1g/Ns 100ml Ivpb) 1 gm in 100 mls @ 100 mls/hr IVPB Q8 [facility] PRN Reason: Protocol Stop: 09/03/16 22:01 Last Admin: 08/30/16 05:27 Dose: 100 mls/hr Metoprolol Tartrate (Lopressor) 25 mg PO BID [facility] Last Admin: 08/30/16 09:27 Dose: 25 mg Miconazole Nitrate (Miconazole 2% Cream) 0 ea TOP BID [facility] Last Admin: 08/30/16 10:22 Dose: 1 applic Multivitamins/Minerals (Therapeutic-M Tab) 1 tab PO DAILY [facility] Last Admin: 08/30/16 09:27 Dose: 1 tab Ondansetron HCl (Zofran Inj) 4 mg IVP Q6H PRN PRN Reason: Nausea/Vomiting Pantoprazole Sodium (Protonix Ec Tab) 40 mg PO ACB [facility] Last Admin: 08/30/16 09:27 Dose: 40 mg Pramipexole Dihydrochloride (Mirapex) 0.25 mg PO TID [facility] Last Admin: 08/30/16 09:27 Dose: 0.25 mg Silver Sulfadiazine (Silvadene 1% 20 Gm) 0 ea TOP BID [facility] Last Admin: 08/30/16 10:22 Dose: 1 applic Warfarin Sodium (Coumadin) 5 mg PO 1800 [facility] PRN Reason: Protocol Zinc Sulfate (Zinc Sulfate 220 Mg Cap) 220 mg PO DAILY [facility] Last Admin: 08/30/16 09:27 Dose: 220 mg - Labs Labs: 08/30/16 07:15 08/30/16 07:15 PT 23.8 Seconds (9.9-11.8) H 08/30/16 07:15 INR 2.20 (0.93-1.08) H 08/30/16 07:15 APTT 30.7 Seconds (23.7-30.8) 07/30/16 06:30 - Constitutional Appears: Non-toxic, No Acute Distress - Head Exam Head Exam: ATRAUMATIC - ENT Exam ENT Exam: Mucous Membranes Moist - Respiratory Exam Respiratory Exam: Clear to Ausculation Bilateral. absent: Accessory Muscle Use , Respiratory Distress - Cardiovascular Exam Cardiovascular Exam: REGULAR RHYTHM, +S1, +S2. absent: Gallop, Rubs, Murmur - GI/Abdominal Exam GI & Abdominal Exam: Soft, Normal Bowel Sounds. 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 1. 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 Will re-check ESR-CRP this week on Tramadol prn for pain 2. 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 Boots in place Baclofen 20 mg PO TID Continue Mirapex 3. R LE DVT s/p IVC filter placed INR is therapeutic. Will maintain INR between 2-3 Continue coumadin. will adjust based on INR Will check INR and labs every other day. will continue to monitor for bleeding IVC filter in place 4. Neurogenic bowel vs. ileus: resolved. Full diet but will monitor closely Dulcolax PO and RC PRN 5. Neurogenic bladder Mackenzie in place draining light yellow urine 6. multiple stage 2 pressure ulcer on sacrum and buttock improving air mattress and continue to reposition q2H continue multivit, zinc, vitamin C PO Wound care is following Prophylaxis GI ppx- Protonix DVT ppx- coumadin Awaiting prison care decision Case discussed with attending Dr. Piedra <Tobin Piedra - Last Filed: 08/30/16 17:45> Objective - Vital Signs/Intake and Output Vital Signs (last 24 hours): Temp Pulse Resp BP Pulse Ox 98.7 F 65 20 110/71 100 08/30/16 15:53 08/30/16 17:11 08/30/16 15:53 08/30/16 17:11 08/30/16 15:53 Intake and Output: 08/30/16 08/30/16 06:59 18:59 Intake Total 180 640 Output Total 500 1200 Balance -320 -560 - Medications Medications: Current Medications Albuterol/Ipratropium (Duoneb 3 Mg/0.5 Mg (3 Ml) Ud) 3 ml IH [id number] [facility] Last Admin: 08/30/16 12:59 Dose: 3 ml Ascorbic Acid (Vitamin C 500 Mg Tab) 500 mg PO DAILY [facility] Last Admin: 08/30/16 09:27 Dose: 500 mg Baclofen (Lioresal) 20 mg PO TID [facility] Last Admin: 08/30/16 17:11 Dose: 20 mg Bisacodyl (Dulcolax) 5 mg PO DAILY PRN PRN Reason: Constipation Meropenem 1g/NS 100mL IVPB (Meropenem 1g/Ns 100ml Ivpb) 1 gm in 100 mls @ 100 mls/hr IVPB Q8 [facility] PRN Reason: Protocol Stop: 09/03/16 22:01 Last Admin: 08/30/16 13:39 Dose: 100 mls/hr Metoprolol Tartrate (Lopressor) 25 mg PO BID [facility] Last Admin: 08/30/16 17:11 Dose: 25 mg Miconazole Nitrate (Miconazole 2% Cream) 0 ea TOP BID [facility] Last Admin: 08/30/16 17:11 Dose: 1 applic Multivitamins/Minerals (Therapeutic-M Tab) 1 tab PO DAILY [facility] Last Admin: 08/30/16 09:27 Dose: 1 tab Ondansetron HCl (Zofran Inj) 4 mg IVP Q6H PRN PRN Reason: Nausea/Vomiting Pantoprazole Sodium (Protonix Ec Tab) 40 mg PO ACB [facility] Last Admin: 08/30/16 09:27 Dose: 40 mg Pramipexole Dihydrochloride (Mirapex) 0.25 mg PO TID [facility] Last Admin: 08/30/16 17:11 Dose: 0.25 mg Silver Sulfadiazine (Silvadene 1% 20 Gm) 0 ea TOP BID [facility] Last Admin: 08/30/16 17:11 Dose: 1 applic Warfarin Sodium (Coumadin) 5 mg PO 1800 [facility] PRN Reason: Protocol Last Admin: 08/30/16 17:11 Dose: 5 mg Zinc Sulfate (Zinc Sulfate 220 Mg Cap) 220 mg PO DAILY [facility] Last Admin: 08/30/16 09:27 Dose: 220 mg - Labs Labs: 08/30/16 07:15 08/30/16 07:15 PT 23.8 Seconds (9.9-11.8) H 08/30/16 07:15 INR 2.20 (0.93-1.08) H 08/30/16 07:15 APTT 30.7 Seconds (23.7-30.8) 07/30/16 06:30 Attending/Attestation - Attestation I have personally seen and examined this patient.: Yes I have fully participated in the care of the patient.: Yes I have reviewed all pertinent clinical information, including history, physical exam and plan: Yes Notes (Text): 08/30/16 17:44 Patient seen and examined with resident. This is a 51 year old male with history of substance abuse (snorts cocaine), tobacco, alcohol use who got admitted for evaluation of back pain and found to have epidural abscess T1-T5, osteomyelitis, urinary retention and acute RLE DVT s/p IVC filter on coumadin. He underwent emergent laminectomy and epidural abscess was drained. 1-Epidural space abscess s/p lamenectomy T2-T4: completed IV meropenem. ESR and CRP improved. 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 Frequent repositioning. 3-Involuntary movements of bilateral lower extremities: Continue baclofen and mirapex. 4-Right LE DVT s/p IVC filter: INR is therapeutic. Continue coumadin. 5-Hematuria: resolved. Hb is stable. . Mackenzie catheter changed by Dr. Iqbal. 6-Multiple stage 2 ulcer on sacrum and buttocks area: Improving. Continue air mattress, frequent repositioning, MVI, zinc and vitamin C. Continue wound care. 7-GI prophylaxis: continue protonix. 8-DVT prophylaxis: continue coumadin. disability paperwork completed. case discussed with secondary social studies teacher in detail for discharge planning. 08/30/16 17:45
[2016-08-31] MEDS: Albuterol-Ipratrop 3 mg / 0.5 (3 ml) UD IH SCH ×4 (03:04→20:36)
[2016-08-31] MEDS: Meropenem 1g/NS 100mL IVPB 1 GM/100 ML PIGGYBACK IVPB SCH ×3 (05:56→21:18)
[2016-08-31] MEDS: Pantoprazole 40 mg EC Tab PO SCH (10:01)
[2016-08-31] MEDS: Miconazole 2% Cream(30 gm) TOP SCH ×2 (10:01→18:01)
[2016-08-31] MEDS: Silver Sulfadiazine 1% Cream (20 gm) TOP SCH ×2 (10:02→18:01)
[2016-08-31] MEDS: Multivitamin With Minerals Tab PO SCH (10:05)
--- NOTE | 2016-08-31 11:09 | CP.PCM.PN ---
Subjective - Date & Time of Evaluation Date of Evaluation: 08/31/16 Time of Evaluation: 09:00 - Subjective Subjective: Comfortable, no fevers overnight, not in distress. Objective - Vital Signs/Intake and Output Vital Signs (last 24 hours): Temp Pulse Resp BP Pulse Ox 97.9 F 65 18 122/79 96 08/31/16 08:11 08/31/16 08:11 08/31/16 08:11 08/31/16 08:11 08/31/16 08:11 Intake and Output: 08/31/16 08/31/16 06:59 18:59 Intake Total 800 Output Total 850 Balance -50 - Medications Medications: Current Medications Albuterol/Ipratropium (Duoneb 3 Mg/0.5 Mg (3 Ml) Ud) 3 ml IH [id number] [facility] Last Admin: 08/31/16 07:41 Dose: 3 ml Ascorbic Acid (Vitamin C 500 Mg Tab) 500 mg PO DAILY [facility] Last Admin: 08/30/16 09:27 Dose: 500 mg Baclofen (Lioresal) 20 mg PO TID [facility] Last Admin: 08/30/16 17:11 Dose: 20 mg Bisacodyl (Dulcolax) 5 mg PO DAILY PRN PRN Reason: Constipation Meropenem 1g/NS 100mL IVPB (Meropenem 1g/Ns 100ml Ivpb) 1 gm in 100 mls @ 100 mls/hr IVPB Q8 [facility] PRN Reason: Protocol Stop: 09/03/16 22:01 Last Admin: 08/31/16 05:56 Dose: 100 mls/hr Metoprolol Tartrate (Lopressor) 25 mg PO BID [facility] Last Admin: 08/30/16 17:11 Dose: 25 mg Miconazole Nitrate (Miconazole 2% Cream) 0 ea TOP BID [facility] Last Admin: 08/30/16 17:11 Dose: 1 applic Multivitamins/Minerals (Therapeutic-M Tab) 1 tab PO DAILY [facility] Last Admin: 08/30/16 09:27 Dose: 1 tab Ondansetron HCl (Zofran Inj) 4 mg IVP Q6H PRN PRN Reason: Nausea/Vomiting Pantoprazole Sodium (Protonix Ec Tab) 40 mg PO ACB [facility] Last Admin: 08/30/16 09:27 Dose: 40 mg Pramipexole Dihydrochloride (Mirapex) 0.25 mg PO TID [facility] Last Admin: 08/30/16 17:11 Dose: 0.25 mg Silver Sulfadiazine (Silvadene 1% 20 Gm) 0 ea TOP BID [facility] Last Admin: 08/30/16 17:11 Dose: 1 applic Warfarin Sodium (Coumadin) 5 mg PO 1800 [facility] PRN Reason: Protocol Last Admin: 08/30/16 17:11 Dose: 5 mg Zinc Sulfate (Zinc Sulfate 220 Mg Cap) 220 mg PO DAILY [facility] Last Admin: 08/30/16 09:27 Dose: 220 mg - Labs Labs: 08/30/16 07:15 08/30/16 07:15 PT 23.8 Seconds (9.9-11.8) H 08/30/16 07:15 INR 2.20 (0.93-1.08) H 08/30/16 07:15 APTT 30.7 Seconds (23.7-30.8) 07/30/16 06:30 - Constitutional Appears: Non-toxic, No Acute Distress - Head Exam Head Exam: NORMAL INSPECTION - Respiratory Exam Respiratory Exam: Decreased Breath Sounds - Cardiovascular Exam Cardiovascular Exam: +S1, +S2 - GI/Abdominal Exam GI & Abdominal Exam: Soft. 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 with associated cord compression and lower extremity paralysis and neurogenic bladder S/P neurosurgery for abscess drainage and laminectomy POD #54 Possible drug reaction to Rocephin Partial small bowel obstruction, clinically improved significant smoking history alcohol abuse obesity with BMI 40 Plan continue Merrem despite completing 6 weeks of therapy (now has completed more than 7 weeks of therapy) because the CRP is still elevated, but the repeat one today 08/27/2016 has now decreased by half which is a good trend - will continue to follow and trend ESR, CRP weekly (next draw should be September 03) and target normalization or near-normalization of these inflammatory markers Will continue to monitor clinically
--- NOTE | 2016-08-31 14:20 | CP.PCM.PN ---
<Keri Guzman - Last Filed: 08/31/16 14:16> Subjective - Date & Time of Evaluation Date of Evaluation: 08/31/16 Time of Evaluation: 14:16 - Subjective Subjective: HOSPITALISTS PROGRESS NOTE Pt is seen and examined at bedside. No acute events overnight. patient is resting comfortably. He sates that he is tolerating diet and having regular bowel movements. Patient denies having any CP, SOB, abd pain, N/V/D/C, f/c. Objective - Vital Signs/Intake and Output Vital Signs (last 24 hours): Temp Pulse Resp BP Pulse Ox 97.9 F 85 18 125/65 96 08/31/16 08:11 08/31/16 10:01 08/31/16 08:11 08/31/16 10:01 08/31/16 08:11 Intake and Output: 08/31/16 08/31/16 06:59 18:59 Intake Total 800 Output Total 850 Balance -50 - Medications Medications: Current Medications Albuterol/Ipratropium (Duoneb 3 Mg/0.5 Mg (3 Ml) Ud) 3 ml IH [id number] [facility] Last Admin: 08/31/16 13:25 Dose: 3 ml Ascorbic Acid (Vitamin C 500 Mg Tab) 500 mg PO DAILY [facility] Last Admin: 08/31/16 10:01 Dose: 500 mg Baclofen (Lioresal) 20 mg PO TID [facility] Last Admin: 08/31/16 10:01 Dose: 20 mg Bisacodyl (Dulcolax) 5 mg PO DAILY PRN PRN Reason: Constipation Meropenem 1g/NS 100mL IVPB (Meropenem 1g/Ns 100ml Ivpb) 1 gm in 100 mls @ 100 mls/hr IVPB Q8 [facility] PRN Reason: Protocol Stop: 09/03/16 22:01 Last Admin: 08/31/16 05:56 Dose: 100 mls/hr Metoprolol Tartrate (Lopressor) 25 mg PO BID [facility] Last Admin: 08/31/16 10:01 Dose: 25 mg Miconazole Nitrate (Miconazole 2% Cream) 0 ea TOP BID [facility] Last Admin: 08/31/16 10:01 Dose: 1 applic Multivitamins/Minerals (Therapeutic-M Tab) 1 tab PO DAILY [facility] Last Admin: 08/31/16 10:05 Dose: 1 tab Ondansetron HCl (Zofran Inj) 4 mg IVP Q6H PRN PRN Reason: Nausea/Vomiting Pantoprazole Sodium (Protonix Ec Tab) 40 mg PO ACB [facility] Last Admin: 08/31/16 10:01 Dose: 40 mg Pramipexole Dihydrochloride (Mirapex) 0.25 mg PO TID [facility] Last Admin: 08/31/16 10:01 Dose: 0.25 mg Silver Sulfadiazine (Silvadene 1% 20 Gm) 0 ea TOP BID [facility] Last Admin: 08/31/16 10:02 Dose: 1 applic Warfarin Sodium (Coumadin) 5 mg PO 1800 [facility] PRN Reason: Protocol Last Admin: 08/30/16 17:11 Dose: 5 mg Zinc Sulfate (Zinc Sulfate 220 Mg Cap) 220 mg PO DAILY [facility] Last Admin: 08/31/16 10:01 Dose: 220 mg - Labs Labs: 08/30/16 07:15 08/30/16 07:15 PT 23.8 Seconds (9.9-11.8) H 08/30/16 07:15 INR 2.20 (0.93-1.08) H 08/30/16 07:15 APTT 30.7 Seconds (23.7-30.8) 07/30/16 06:30 - Constitutional Appears: Non-toxic, No Acute Distress - Head Exam Head Exam: ATRAUMATIC - Eye Exam Eye Exam: EOMI - ENT Exam ENT Exam: Mucous Membranes Moist - Respiratory Exam Respiratory Exam: Clear to Ausculation Bilateral. absent: Accessory Muscle Use , Rales, Rhonchi, Wheezes, Respiratory Distress - Cardiovascular Exam Cardiovascular Exam: REGULAR RHYTHM. absent: Gallop, Rubs, Murmur - GI/Abdominal Exam GI & Abdominal Exam: Soft, Normal Bowel Sounds. 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 1. 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 Will re-check ESR-CRP on 09/03. If normal, will stop abx. on Tramadol prn for pain 2. 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 Boots in place Baclofen 20 mg PO TID Continue Mirapex 3. R LE DVT s/p IVC filter placed INR is therapeutic. Will maintain INR between 2-3 Continue coumadin. will adjust based on INR Will check INR and labs every other day. will continue to monitor for bleeding IVC filter in place 4. Neurogenic bowel vs. ileus: resolved. Full diet but will monitor closely Dulcolax PO and RC PRN 5. Neurogenic bladder Mackenzie in place draining light yellow urine 6. multiple stage 2 pressure ulcer on sacrum and buttock improving air mattress and continue to reposition q2H continue multivit, zinc, vitamin C PO Wound care is following Prophylaxis GI ppx- Protonix DVT ppx- coumadin Awaiting termite control service representative care decision. Blood work and INR check every other day Case discussed with attending Dr. Piedra <Tobin Piedra - Last Filed: 08/31/16 14:58> Objective - Vital Signs/Intake and Output Vital Signs (last 24 hours): Temp Pulse Resp BP Pulse Ox 97.9 F 85 18 125/65 96 08/31/16 08:11 08/31/16 10:01 08/31/16 08:11 08/31/16 10:01 08/31/16 08:11 Intake and Output: 08/31/16 08/31/16 06:59 18:59 Intake Total 800 Output Total 850 Balance -50 - Medications Medications: Current Medications Albuterol/Ipratropium (Duoneb 3 Mg/0.5 Mg (3 Ml) Ud) 3 ml IH [id number] [facility] Last Admin: 08/31/16 13:25 Dose: 3 ml Ascorbic Acid (Vitamin C 500 Mg Tab) 500 mg PO DAILY [facility] Last Admin: 08/31/16 10:01 Dose: 500 mg Baclofen (Lioresal) 20 mg PO TID [facility] Last Admin: 08/31/16 14:19 Dose: 20 mg Bisacodyl (Dulcolax) 5 mg PO DAILY PRN PRN Reason: Constipation Meropenem 1g/NS 100mL IVPB (Meropenem 1g/Ns 100ml Ivpb) 1 gm in 100 mls @ 100 mls/hr IVPB Q8 [facility] PRN Reason: Protocol Stop: 09/03/16 22:01 Last Admin: 08/31/16 14:19 Dose: 100 mls/hr Metoprolol Tartrate (Lopressor) 25 mg PO BID [facility] Last Admin: 08/31/16 10:01 Dose: 25 mg Miconazole Nitrate (Miconazole 2% Cream) 0 ea TOP BID [facility] Last Admin: 08/31/16 10:01 Dose: 1 applic Multivitamins/Minerals (Therapeutic-M Tab) 1 tab PO DAILY [facility] Last Admin: 08/31/16 10:05 Dose: 1 tab Ondansetron HCl (Zofran Inj) 4 mg IVP Q6H PRN PRN Reason: Nausea/Vomiting Pantoprazole Sodium (Protonix Ec Tab) 40 mg PO ACB [facility] Last Admin: 08/31/16 10:01 Dose: 40 mg Pramipexole Dihydrochloride (Mirapex) 0.25 mg PO TID [facility] Last Admin: 08/31/16 14:19 Dose: 0.25 mg Silver Sulfadiazine (Silvadene 1% 20 Gm) 0 ea TOP BID [facility] Last Admin: 08/31/16 10:02 Dose: 1 applic Warfarin Sodium (Coumadin) 5 mg PO 1800 [facility] PRN Reason: Protocol Last Admin: 08/30/16 17:11 Dose: 5 mg Zinc Sulfate (Zinc Sulfate 220 Mg Cap) 220 mg PO DAILY [facility] Last Admin: 08/31/16 10:01 Dose: 220 mg - Labs Labs: 08/30/16 07:15 08/30/16 07:15 PT 23.8 Seconds (9.9-11.8) H 08/30/16 07:15 INR 2.20 (0.93-1.08) H 08/30/16 07:15 APTT 30.7 Seconds (23.7-30.8) 07/30/16 06:30 Attending/Attestation - Attestation I have personally seen and examined this patient.: Yes I have fully participated in the care of the patient.: Yes I have reviewed all pertinent clinical information, including history, physical exam and plan: Yes Notes (Text): 08/31/16 14:57 Patient seen and examined with resident. This is a 51 year old male with history of substance abuse (snorts cocaine), tobacco, alcohol use who got admitted for evaluation of back pain and found to have epidural abscess T1-T5, osteomyelitis, urinary retention and acute RLE DVT s/p IVC filter on coumadin. He underwent emergent laminectomy and epidural abscess was drained. 1-Epidural space abscess s/p lamenectomy T2-T4: on IV meropenem. ESR and CRP improved. 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 Frequent repositioning. 3-Involuntary movements of bilateral lower extremities: Continue baclofen and mirapex. 4-Right LE DVT s/p IVC filter: INR is therapeutic. Continue coumadin. 5-Hematuria: resolved. Hb is stable. . Mackenzie catheter changed by Dr. Iqbal. 6-Multiple stage 2 ulcer on sacrum and buttocks area: Improving. Continue air mattress, frequent repositioning, MVI, zinc and vitamin C. Continue wound care. 7-GI prophylaxis: continue protonix. 8-DVT prophylaxis: continue coumadin. disability paperwork completed.
[2016-09-01] MEDS: Albuterol-Ipratrop 3 mg / 0.5 (3 ml) UD IH SCH ×4 (01:55→19:31)
[2016-09-01] MEDS: Meropenem 1g/NS 100mL IVPB 1 GM/100 ML PIGGYBACK IVPB SCH ×3 (06:12→22:15)
[2016-09-01 08:05] LABS: HEMOGLOBIN 12.2 gm/dL (14.0-18.0); MEAN CELL VOLUME 86.3 fL (80.0-105.0); MEAN CORPUSCULAR HEMOGLOBIN 28.9 pg (25.0-35.0); MEAN CORPUSCULAR HGB CONC 33.5 g/dl (31.0-37.0); MEAN PLATELET VOLUME 11.5 fl (7.0-11.0); RBC 4.22 10^6/uL (3.5-6.1); RED CELL DISTRIBUTION WIDTH 14.1 % (11.5-14.5); WHITE BLOOD COUNT 6.1 10^3/ul (4.5-11.0)
[2016-09-01 08:11] LABS: INR 2.42 (0.93-1.08); PROTHROMBIN TIME 26.1 Seconds (9.9-11.8)
[2016-09-01 08:14] LABS: BLOOD UREA NITROGEN 20 mg/dL (7-21); CALCIUM 9.6 mg/dL (8.4-10.5); GFR AFRICAN-AMERICAN > 60; GFR NON-AFRICAN AMERICAN > 60
--- NOTE | 2016-09-01 09:36 | CP.PCM.PN ---
Subjective - Date & Time of Evaluation Date of Evaluation: 09/01/16 Time of Evaluation: 07:15 - Subjective Subjective: Comfortable in bed, having more spasms in his legs but still unable to move the legs, no fevers overnight, not in distress. Objective - Vital Signs/Intake and Output Vital Signs (last 24 hours): Temp Pulse Resp BP Pulse Ox 98.6 F 62 20 121/81 96 09/01/16 08:00 09/01/16 08:00 09/01/16 08:00 09/01/16 08:00 09/01/16 08:00 Intake and Output: 09/01/16 09/01/16 06:59 18:59 Intake Total 880 Output Total 1050 Balance -170 - Medications Medications: Current Medications Albuterol/Ipratropium (Duoneb 3 Mg/0.5 Mg (3 Ml) Ud) 3 ml IH [id number] [facility] Last Admin: 09/01/16 07:21 Dose: 3 ml Ascorbic Acid (Vitamin C 500 Mg Tab) 500 mg PO DAILY [facility] Last Admin: 08/31/16 10:01 Dose: 500 mg Baclofen (Lioresal) 20 mg PO TID [facility] Last Admin: 08/31/16 18:19 Dose: 20 mg Bisacodyl (Dulcolax) 5 mg PO DAILY PRN PRN Reason: Constipation Meropenem 1g/NS 100mL IVPB (Meropenem 1g/Ns 100ml Ivpb) 1 gm in 100 mls @ 100 mls/hr IVPB Q8 [facility] PRN Reason: Protocol Stop: 09/03/16 22:01 Last Admin: 09/01/16 06:12 Dose: 100 mls/hr Metoprolol Tartrate (Lopressor) 25 mg PO BID [facility] Last Admin: 08/31/16 18:19 Dose: 25 mg Miconazole Nitrate (Miconazole 2% Cream) 0 ea TOP BID [facility] Last Admin: 08/31/16 18:01 Dose: 1 applic Multivitamins/Minerals (Therapeutic-M Tab) 1 tab PO DAILY [facility] Last Admin: 08/31/16 10:05 Dose: 1 tab Ondansetron HCl (Zofran Inj) 4 mg IVP Q6H PRN PRN Reason: Nausea/Vomiting Pantoprazole Sodium (Protonix Ec Tab) 40 mg PO ACB [facility] Last Admin: 08/31/16 10:01 Dose: 40 mg Pramipexole Dihydrochloride (Mirapex) 0.25 mg PO TID [facility] Last Admin: 08/31/16 18:19 Dose: 0.25 mg Silver Sulfadiazine (Silvadene 1% 20 Gm) 0 ea TOP BID [facility] Last Admin: 08/31/16 18:01 Dose: 1 applic Warfarin Sodium (Coumadin) 5 mg PO 1800 [facility] PRN Reason: Protocol Last Admin: 08/31/16 18:19 Dose: 5 mg Zinc Sulfate (Zinc Sulfate 220 Mg Cap) 220 mg PO DAILY [facility] Last Admin: 08/31/16 10:01 Dose: 220 mg - Labs Labs: 09/01/16 07:00 09/01/16 07:00 PT 26.1 Seconds (9.9-11.8) H 09/01/16 07:00 INR 2.42 (0.93-1.08) H 09/01/16 07:00 APTT 30.7 Seconds (23.7-30.8) 07/30/16 06:30 - Constitutional Appears: Non-toxic, No Acute Distress - Head Exam Head Exam: NORMAL INSPECTION - ENT Exam ENT Exam: Mucous Membranes Moist - Neck Exam Neck Exam: absent: Lymphadenopathy, Meningismus - Respiratory Exam Respiratory Exam: Decreased Breath Sounds - Cardiovascular Exam Cardiovascular Exam: +S1, +S2 - GI/Abdominal Exam GI & Abdominal Exam: Soft. 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 with associated cord compression and lower extremity paralysis and neurogenic bladder S/P neurosurgery for abscess drainage and laminectomy POD #55 Possible drug reaction to Rocephin Partial small bowel obstruction, clinically improved significant smoking history alcohol abuse obesity with BMI 40 Plan continue Merrem despite completing 6 weeks of therapy (now has completed more than 7 weeks of therapy) because the CRP is still elevated, but the repeat one today 08/27/2016 has now decreased by half which is a good trend - will continue to follow and trend ESR, CRP weekly (next draw should be September 03) and target normalization or near-normalization of these inflammatory markers Will continue to monitor clinically - discussed with the patient
[2016-09-01] MEDS: Multivitamin With Minerals Tab PO SCH (10:18)
[2016-09-01] MEDS: Pantoprazole 40 mg EC Tab PO SCH (10:19)
[2016-09-01] MEDS: Silver Sulfadiazine 1% Cream (20 gm) TOP SCH ×2 (10:21→20:05)
[2016-09-01] MEDS: Miconazole 2% Cream(30 gm) TOP SCH ×2 (10:21→20:04)
--- NOTE | 2016-09-01 12:49 | CP.PCM.PN ---
<Glenn Rodriguez - Last Filed: 09/01/16 12:45> Subjective - Date & Time of Evaluation Date of Evaluation: 09/01/16 Time of Evaluation: 12:46 - Subjective Subjective: Patient seen and examined. He has no complaints at this time. He is pending snf placement. Patient's sister is reportedly filing paperwork and working with social work toward finding placement. Objective - Vital Signs/Intake and Output Vital Signs (last 24 hours): Temp Pulse Resp BP Pulse Ox 98.6 F 62 20 121/81 96 09/01/16 08:00 09/01/16 10:18 09/01/16 08:00 09/01/16 10:18 09/01/16 08:00 Intake and Output: 09/01/16 09/01/16 06:59 18:59 Intake Total 880 Output Total 1050 Balance -170 - Medications Medications: Current Medications Albuterol/Ipratropium (Duoneb 3 Mg/0.5 Mg (3 Ml) Ud) 3 ml IH [id number] [facility] Last Admin: 09/01/16 07:21 Dose: 3 ml Ascorbic Acid (Vitamin C 500 Mg Tab) 500 mg PO DAILY [facility] Last Admin: 09/01/16 10:18 Dose: 500 mg Baclofen (Lioresal) 20 mg PO TID [facility] Last Admin: 09/01/16 10:18 Dose: 20 mg Bisacodyl (Dulcolax) 5 mg PO DAILY PRN PRN Reason: Constipation Meropenem 1g/NS 100mL IVPB (Meropenem 1g/Ns 100ml Ivpb) 1 gm in 100 mls @ 100 mls/hr IVPB Q8 [facility] PRN Reason: Protocol Stop: 09/03/16 22:01 Last Admin: 09/01/16 06:12 Dose: 100 mls/hr Metoprolol Tartrate (Lopressor) 25 mg PO BID [facility] Last Admin: 09/01/16 10:18 Dose: 25 mg Miconazole Nitrate (Miconazole 2% Cream) 0 ea TOP BID [facility] Last Admin: 09/01/16 10:21 Dose: 1 applic Multivitamins/Minerals (Therapeutic-M Tab) 1 tab PO DAILY [facility] Last Admin: 09/01/16 10:18 Dose: 1 tab Ondansetron HCl (Zofran Inj) 4 mg IVP Q6H PRN PRN Reason: Nausea/Vomiting Pantoprazole Sodium (Protonix Ec Tab) 40 mg PO ACB [facility] Last Admin: 09/01/16 10:19 Dose: 40 mg Pramipexole Dihydrochloride (Mirapex) 0.25 mg PO TID [facility] Last Admin: 09/01/16 10:22 Dose: 0.25 mg Silver Sulfadiazine (Silvadene 1% 20 Gm) 0 ea TOP BID [facility] Last Admin: 09/01/16 10:21 Dose: 1 applic Warfarin Sodium (Coumadin) 5 mg PO 1800 [facility] PRN Reason: Protocol Last Admin: 08/31/16 18:19 Dose: 5 mg Zinc Sulfate (Zinc Sulfate 220 Mg Cap) 220 mg PO DAILY [facility] Last Admin: 09/01/16 10:18 Dose: 220 mg - Labs Labs: 09/01/16 07:00 09/01/16 07:00 PT 26.1 Seconds (9.9-11.8) H 09/01/16 07:00 INR 2.42 (0.93-1.08) H 09/01/16 07:00 APTT 30.7 Seconds (23.7-30.8) 07/30/16 06:30 - Constitutional Appears: Non-toxic, No Acute Distress - Head Exam Head Exam: ATRAUMATIC, NORMOCEPHALIC - Eye Exam Eye Exam: EOMI, PERRL - ENT Exam ENT Exam: Mucous Membranes Moist - Neck Exam Neck Exam: Full ROM. absent: Lymphadenopathy - Respiratory Exam Respiratory Exam: Clear to Ausculation Bilateral. absent: Rales, Rhonchi, Wheezes - Cardiovascular Exam Cardiovascular Exam: REGULAR RHYTHM, +S1 - GI/Abdominal Exam GI & Abdominal Exam: Distended, Soft, Normal Bowel Sounds - Extremities Exam Extremities Exam: absent: Calf Tenderness, Pedal Edema - Neurological Exam Neurological Exam: Alert, Awake, Motor Sensory Deficit Neuro motor strength exam: Left Lower Extremity: 0, Right Lower Extremity: 0 - Psychiatric Exam Psychiatric exam: Normal Affect, Normal Mood - Skin Skin Exam: Normal Color, Warm Assessment and Plan - Assessment and Plan (Free Text) Plan: Patient is a 51 year old male with no significant past medical history is 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 Will re-check ESR-CRP on 09/03. If normal, will stop abx. - Tramadol prn for pain hematuria, asymptomatic - Urology has seen patient. - haque to remain - hematuria has now resolved. 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 Boots in place - Baclofen 20 mg PO TID - Continue Mirapex R LE DVT s/p IVC filter placed - INR is therapeutic. Will maintain INR between 2-3 - Continue coumadin. will adjust based on INR - Will check INR and labs every other day. will continue to monitor for bleeding IVC filter in place Neurogenic bowel vs. ileus: resolved. - Full diet but will monitor closely - Dulcolax PO and RC PRN Neurogenic bladder - Haque in place draining light yellow urine multiple stage 2 pressure ulcer on sacrum and buttock improving - air mattress and continue to reposition q2H - continue multivit, zinc, vitamin C PO - Wound care is following Prophylaxis GI ppx- Protonix DVT ppx- coumadin Dispo: patient is pending placement at this time. Patient's family is actively working with social work toward this end. <Tutu Marc - Last Filed: 09/01/16 15:28> Objective - Vital Signs/Intake and Output Vital Signs (last 24 hours): Temp Pulse Resp BP Pulse Ox 98.6 F 62 20 121/81 96 09/01/16 08:00 09/01/16 10:18 09/01/16 08:00 09/01/16 10:18 09/01/16 08:00 Intake and Output: 09/01/16 09/01/16 06:59 18:59 Intake Total 880 840 Output Total 1050 650 Balance -170 190 - Medications Medications: Current Medications Albuterol/Ipratropium (Duoneb 3 Mg/0.5 Mg (3 Ml) Ud) 3 ml IH [id number] [facility] Last Admin: 09/01/16 13:50 Dose: 3 ml Ascorbic Acid (Vitamin C 500 Mg Tab) 500 mg PO DAILY [facility] Last Admin: 09/01/16 10:18 Dose: 500 mg Baclofen (Lioresal) 20 mg PO TID [facility] Last Admin: 09/01/16 14:13 Dose: 20 mg Bisacodyl (Dulcolax) 5 mg PO DAILY PRN PRN Reason: Constipation Meropenem 1g/NS 100mL IVPB (Meropenem 1g/Ns 100ml Ivpb) 1 gm in 100 mls @ 100 mls/hr IVPB Q8 [facility] PRN Reason: Protocol Stop: 09/03/16 22:01 Last Admin: 09/01/16 14:13 Dose: 100 mls/hr Metoprolol Tartrate (Lopressor) 25 mg PO BID [facility] Last Admin: 09/01/16 10:18 Dose: 25 mg Miconazole Nitrate (Miconazole 2% Cream) 0 ea TOP BID [facility] Last Admin: 09/01/16 10:21 Dose: 1 applic Multivitamins/Minerals (Therapeutic-M Tab) 1 tab PO DAILY [facility] Last Admin: 09/01/16 10:18 Dose: 1 tab Ondansetron HCl (Zofran Inj) 4 mg IVP Q6H PRN PRN Reason: Nausea/Vomiting Pantoprazole Sodium (Protonix Ec Tab) 40 mg PO ACB [facility] Last Admin: 09/01/16 10:19 Dose: 40 mg Pramipexole Dihydrochloride (Mirapex) 0.25 mg PO TID [facility] Last Admin: 09/01/16 14:13 Dose: 0.25 mg Silver Sulfadiazine (Silvadene 1% 20 Gm) 0 ea TOP BID [facility] Last Admin: 09/01/16 10:21 Dose: 1 applic Warfarin Sodium (Coumadin) 5 mg PO 1800 [facility] PRN Reason: Protocol Last Admin: 08/31/16 18:19 Dose: 5 mg Zinc Sulfate (Zinc Sulfate 220 Mg Cap) 220 mg PO DAILY [facility] Last Admin: 09/01/16 10:18 Dose: 220 mg - Labs Labs: 09/01/16 07:00 09/01/16 07:00 PT 26.1 Seconds (9.9-11.8) H 09/01/16 07:00 INR 2.42 (0.93-1.08) H 09/01/16 07:00 APTT 30.7 Seconds (23.7-30.8) 07/30/16 06:30 Attending/Attestation - Attestation I have personally seen and examined this patient.: Yes I have fully participated in the care of the patient.: Yes I have reviewed all pertinent clinical information, including history, physical exam and plan: Yes Notes (Text): I have seen and examined the patient at bedside. Agree with the above note with the following additions/ exceptions: This is a 51 year old male with history of substance abuse (snorts cocaine), tobacco, alcohol use who got admitted for evaluation of back pain and found to have epidural abscess T1-T5, osteomyelitis, urinary retention and acute RLE DVT s/p IVC filter on coumadin. He underwent emergent laminectomy and epidural abscess was drained. He remains on meropenem. He has involuntary spasm of Lower extremities which appears to be getting better. Continue baclofen 20 mg po bid and mirapex. He has haque catheter for neurogenic bladder which was changed last week. Hematuria resolved. His INR is therapeutic. Continue frequent turning, air mattress and wound care. Pending placement. Disability paperwork completed. Dr Tutu Marc
[2016-09-02] MEDS: Albuterol-Ipratrop 3 mg / 0.5 (3 ml) UD IH SCH ×4 (02:58→19:31)
[2016-09-02] MEDS: Pantoprazole 40 mg EC Tab PO SCH (09:59)
[2016-09-02] MEDS: Miconazole 2% Cream(30 gm) TOP SCH ×2 (10:00→18:32)
[2016-09-02] MEDS: Multivitamin With Minerals Tab PO SCH (10:00)
[2016-09-02] MEDS: Silver Sulfadiazine 1% Cream (20 gm) TOP SCH ×2 (10:01→18:32)
[2016-09-02] MEDS: Meropenem 1g/NS 100mL IVPB 1 GM/100 ML PIGGYBACK IVPB SCH ×2 (13:45→21:08)
--- NOTE | 2016-09-02 13:51 | CP.PCM.PN ---
<Glenn Rodriguez - Last Filed: 09/02/16 13:56> Subjective - Date & Time of Evaluation Date of Evaluation: 09/02/16 Time of Evaluation: 13:46 - Subjective Subjective: Patient seen at bedside. No acute events overnight. Patient is comfortable. He is repositioned q2hr. He notes his sister is currently filling out paper work regarding his placement which is still pending. Objective - Vital Signs/Intake and Output Vital Signs (last 24 hours): Temp Pulse Resp BP Pulse Ox 98.5 F 56 L 18 130/80 95 09/02/16 08:00 09/02/16 10:00 09/02/16 08:00 09/02/16 10:00 09/02/16 08:00 Intake and Output: 09/02/16 09/02/16 06:59 18:59 Intake Total 820 Output Total 1050 Balance -230 - Medications Medications: Current Medications Albuterol/Ipratropium (Duoneb 3 Mg/0.5 Mg (3 Ml) Ud) 3 ml IH [id number] [facility] Last Admin: 09/02/16 13:24 Dose: 3 ml Ascorbic Acid (Vitamin C 500 Mg Tab) 500 mg PO DAILY [facility] Last Admin: 09/02/16 09:59 Dose: 500 mg Baclofen (Lioresal) 20 mg PO TID [facility] Last Admin: 09/02/16 10:00 Dose: 20 mg Bisacodyl (Dulcolax) 5 mg PO DAILY PRN PRN Reason: Constipation Meropenem 1g/NS 100mL IVPB (Meropenem 1g/Ns 100ml Ivpb) 1 gm in 100 mls @ 100 mls/hr IVPB Q8 [facility] PRN Reason: Protocol Stop: 09/03/16 22:01 Last Admin: 09/01/16 22:15 Dose: 100 mls/hr Metoprolol Tartrate (Lopressor) 25 mg PO BID [facility] Last Admin: 09/02/16 10:00 Dose: 25 mg Miconazole Nitrate (Miconazole 2% Cream) 0 ea TOP BID [facility] Last Admin: 09/02/16 10:00 Dose: 1 applic Multivitamins/Minerals (Therapeutic-M Tab) 1 tab PO DAILY [facility] Last Admin: 09/02/16 10:00 Dose: 1 tab Ondansetron HCl (Zofran Inj) 4 mg IVP Q6H PRN PRN Reason: Nausea/Vomiting Pantoprazole Sodium (Protonix Ec Tab) 40 mg PO ACB [facility]CLUD[facility] Last Admin: 09/02/16 09:59 Dose: 40 mg Pramipexole Dihydrochloride (Mirapex) 0.25 mg PO TID COUNT [facility]CLUD[facility] Last Admin: 09/02/16 09:59 Dose: 0.25 mg Silver Sulfadiazine (Silvadene 1% 20 Gm) 0 ea TOP BID [facility] Last Admin: 09/02/16 10:01 Dose: 1 applic Warfarin Sodium (Coumadin) 5 mg PO 1800 [facility] PRN Reason: Protocol Last Admin: 09/01/16 17:49 Dose: 5 mg Zinc Sulfate (Zinc Sulfate 220 Mg Cap) 220 mg PO DAILY [facility] Last Admin: 09/02/16 10:00 Dose: 220 mg - Labs Labs: 09/01/16 07:00 09/01/16 07:00 PT 26.1 Seconds (9.9-11.8) H 09/01/16 07:00 INR 2.42 (0.93-1.08) H 09/01/16 07:00 APTT 30.7 Seconds (23.7-30.8) 07/30/16 06:30 - Constitutional Appears: Non-toxic, No Acute Distress - Head Exam Head Exam: ATRAUMATIC, NORMOCEPHALIC - Eye Exam Eye Exam: EOMI, PERRL - ENT Exam ENT Exam: Mucous Membranes Moist - Neck Exam Neck Exam: Full ROM, Normal Inspection - Respiratory Exam Respiratory Exam: Clear to Ausculation Bilateral. absent: Rales, Rhonchi, Wheezes - Cardiovascular Exam Cardiovascular Exam: REGULAR RHYTHM, +S1, +S2 - GI/Abdominal Exam GI & Abdominal Exam: Soft, Normal Bowel Sounds. absent: Tenderness - Extremities Exam Extremities Exam: Pedal Edema. 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 Patient is medically stable and awaiting final outpatient planning. 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 Will re-check ESR-CRP on 09/03. If normal, will stop abx. - Tramadol prn for pain hematuria, asymptomatic - Urology has seen patient. - haque to remain - hematuria has now resolved. 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 Boots in place - Baclofen 20 mg PO TID - Continue Mirapex R LE DVT s/p IVC filter placed - INR is therapeutic. Will maintain INR between 2-3 - Continue coumadin. will adjust based on INR - Will check INR and labs every other day. will continue to monitor for bleeding IVC filter in place Neurogenic bowel vs. ileus: resolved. - Full diet but will monitor closely - Dulcolax PO and RC PRN Neurogenic bladder - Haque in place draining light yellow urine multiple stage 2 pressure ulcer on sacrum and buttock improving - air mattress and continue to reposition q2H - continue multivit, zinc, vitamin C PO - Wound care is following Prophylaxis GI ppx- Protonix DVT ppx- coumadin Dispo: patient is pending placement at this time. Patient's family is actively filing patient's forms for this. <Tutu Marc - Last Filed: 09/02/16 21:58> Objective - Vital Signs/Intake and Output Vital Signs (last 24 hours): Temp Pulse Resp BP Pulse Ox 98.4 F 62 18 104/60 95 09/02/16 16:00 09/02/16 16:00 09/02/16 16:00 09/02/16 16:00 09/02/16 16:00 Intake and Output: 09/02/16 09/03/16 18:59 06:59 Intake Total 600 640 Output Total 800 300 Balance -200 340 - Medications Medications: Current Medications Albuterol/Ipratropium (Duoneb 3 Mg/0.5 Mg (3 Ml) Ud) 3 ml IH [id number] COUNT [facility]CLUDES [facility] Last Admin: 09/02/16 19:31 Dose: 3 ml Ascorbic Acid (Vitamin C 500 Mg Tab) 500 mg PO DAILY COUNT [facility]CLUD[facility] Last Admin: 09/02/16 09:59 Dose: 500 mg Baclofen (Lioresal) 20 mg PO TID COUNT [facility]CLUD[facility] Last Admin: 09/02/16 18:32 Dose: 20 mg Bisacodyl (Dulcolax) 5 mg PO DAILY PRN PRN Reason: Constipation Meropenem 1g/NS 100mL IVPB (Meropenem 1g/Ns 100ml Ivpb) 1 gm in 100 mls @ 100 mls/hr IVPB Q8 [facility] PRN Reason: Protocol Stop: 09/03/16 22:01 Last Admin: 09/02/16 21:08 Dose: 100 mls/hr Metoprolol Tartrate (Lopressor) 25 mg PO BID COUNT [facility]CLUDES [facility] Last Admin: 09/02/16 18:31 Dose: 25 mg Miconazole Nitrate (Miconazole 2% Cream) 0 ea TOP BID COUNT [facility]CLUDES [facility] Last Admin: 09/02/16 18:32 Dose: Not Given Multivitamins/Minerals (Therapeutic-M Tab) 1 tab PO DAILY COUNT [facility]CLUDES [facility] Last Admin: 09/02/16 10:00 Dose: 1 tab Ondansetron HCl (Zofran Inj) 4 mg IVP Q6H PRN PRN Reason: Nausea/Vomiting Pantoprazole Sodium (Protonix Ec Tab) 40 mg PO ACB COUNT [facility]CLUDES [facility] Last Admin: 09/02/16 09:59 Dose: 40 mg Pramipexole Dihydrochloride (Mirapex) 0.25 mg PO TID COUNT [facility]CLUD[facility] Last Admin: 09/02/16 18:32 Dose: 0.25 mg Silver Sulfadiazine (Silvadene 1% 20 Gm) 0 ea TOP BID COUNT [facility]CLUDES [facility] Last Admin: 09/02/16 18:32 Dose: Not Given Warfarin Sodium (Coumadin) 5 mg PO 1800 [facility] PRN Reason: Protocol Last Admin: 09/02/16 18:32 Dose: 5 mg Zinc Sulfate (Zinc Sulfate 220 Mg Cap) 220 mg PO DAILY COUNT [facility] Last Admin: 09/02/16 10:00 Dose: 220 mg - Labs Labs: 09/01/16 07:00 09/01/16 07:00 PT 26.1 Seconds (9.9-11.8) H 09/01/16 07:00 INR 2.42 (0.93-1.08) H 09/01/16 07:00 APTT 30.7 Seconds (23.7-30.8) 07/30/16 06:30 Attending/Attestation - Attestation I have personally seen and examined this patient.: Yes I have fully participated in the care of the patient.: Yes I have reviewed all pertinent clinical information, including history, physical exam and plan: Yes Notes (Text): I have seen and examined the patient at bedside. Agree with the above note with the following additions/ exceptions: This is a 51 year old male with history of substance abuse (snorts cocaine), tobacco, alcohol use who got admitted for evaluation of back pain and found to have epidural abscess T1-T5, osteomyelitis, urinary retention and acute RLE DVT s/p IVC filter on coumadin. He underwent emergent laminectomy and epidural abscess was drained. He remains on meropenem. He has involuntary spasm of Lower extremities which appears to be getting better. Continue baclofen 20 mg po bid and mirapex. He has haque catheter for neurogenic bladder which was changed last week. Hematuria resolved. His INR is therapeutic. Continue frequent turning, air mattress and wound care. Awaiting placement. Dr Tutu Marc
--- NOTE | 2016-09-02 15:25 | CP.PCM.PN ---
Subjective - Date & Time of Evaluation Date of Evaluation: 09/02/16 Time of Evaluation: 09:45 - Subjective Subjective: Comfortable, not in distress, afebrile. Having spasms in his legs. Objective - Vital Signs/Intake and Output Vital Signs (last 24 hours): Temp Pulse Resp BP Pulse Ox 98 F 60 18 112/69 100 09/01/16 16:00 09/01/16 17:49 09/01/16 16:00 09/01/16 17:49 09/01/16 16:00 Intake and Output: 09/02/16 09/02/16 06:59 18:59 Intake Total 820 Output Total 1050 Balance -230 - Medications Medications: Current Medications Albuterol/Ipratropium (Duoneb 3 Mg/0.5 Mg (3 Ml) Ud) 3 ml IH [id number] [facility] Last Admin: 09/02/16 07:25 Dose: 3 ml Ascorbic Acid (Vitamin C 500 Mg Tab) 500 mg PO DAILY [facility] Last Admin: 09/01/16 10:18 Dose: 500 mg Baclofen (Lioresal) 20 mg PO TID [facility] Last Admin: 09/01/16 17:49 Dose: 20 mg Bisacodyl (Dulcolax) 5 mg PO DAILY PRN PRN Reason: Constipation Meropenem 1g/NS 100mL IVPB (Meropenem 1g/Ns 100ml Ivpb) 1 gm in 100 mls @ 100 mls/hr IVPB Q8 [facility] PRN Reason: Protocol Stop: 09/03/16 22:01 Last Admin: 09/01/16 22:15 Dose: 100 mls/hr Metoprolol Tartrate (Lopressor) 25 mg PO BID [facility] Last Admin: 09/01/16 17:49 Dose: 25 mg Miconazole Nitrate (Miconazole 2% Cream) 0 ea TOP BID [facility] Last Admin: 09/01/16 20:04 Dose: 1 applic Multivitamins/Minerals (Therapeutic-M Tab) 1 tab PO DAILY [facility] Last Admin: 09/01/16 10:18 Dose: 1 tab Ondansetron HCl (Zofran Inj) 4 mg IVP Q6H PRN PRN Reason: Nausea/Vomiting Pantoprazole Sodium (Protonix Ec Tab) 40 mg PO ACB [facility] Last Admin: 09/01/16 10:19 Dose: 40 mg Pramipexole Dihydrochloride (Mirapex) 0.25 mg PO TID [facility] Last Admin: 09/01/16 17:52 Dose: 0.25 mg Silver Sulfadiazine (Silvadene 1% 20 Gm) 0 ea TOP BID [facility] Last Admin: 09/01/16 20:05 Dose: 1 applic Warfarin Sodium (Coumadin) 5 mg PO 1800 [facility] PRN Reason: Protocol Last Admin: 09/01/16 17:49 Dose: 5 mg Zinc Sulfate (Zinc Sulfate 220 Mg Cap) 220 mg PO DAILY [facility] Last Admin: 09/01/16 10:18 Dose: 220 mg - Labs Labs: 09/01/16 07:00 09/01/16 07:00 PT 26.1 Seconds (9.9-11.8) H 09/01/16 07:00 INR 2.42 (0.93-1.08) H 09/01/16 07:00 APTT 30.7 Seconds (23.7-30.8) 07/30/16 06:30 - Constitutional Appears: Non-toxic, No Acute Distress - Head Exam Head Exam: NORMAL INSPECTION - ENT Exam ENT Exam: Mucous Membranes Moist - Neck Exam Neck Exam: absent: Lymphadenopathy, Meningismus - Respiratory Exam Respiratory Exam: Decreased Breath Sounds - Cardiovascular Exam Cardiovascular Exam: +S1, +S2 - GI/Abdominal Exam GI & Abdominal Exam: Soft. 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 with associated cord compression and lower extremity paralysis and neurogenic bladder S/P neurosurgery for abscess drainage and laminectomy POD #55 Possible drug reaction to Rocephin Partial small bowel obstruction, clinically improved and resolved significant smoking history alcohol abuse obesity with BMI 40 Plan continue Merrem despite completing 6 weeks of therapy (now has completed more than 7 weeks of therapy) because the CRP is still elevated, but the repeat one today 08/27/2016 has now decreased by half which is a good trend - will continue to follow and trend ESR, CRP weekly (next draw should be tomorrow September 03) and target normalization or near-normalization of these inflammatory markers Will continue to monitor clinically - discussed with the patient
[2016-09-03] MEDS: Albuterol-Ipratrop 3 mg / 0.5 (3 ml) UD IH SCH ×4 (01:10→21:05)
[2016-09-03] MEDS: Meropenem 1g/NS 100mL IVPB 1 GM/100 ML PIGGYBACK IVPB SCH ×3 (05:34→21:52)
[2016-09-03] MEDS: Pantoprazole 40 mg EC Tab PO SCH (09:51)
[2016-09-03] MEDS: Multivitamin With Minerals Tab PO SCH (09:51)
[2016-09-03] MEDS: Miconazole 2% Cream(30 gm) TOP SCH ×2 (10:00→17:37)
[2016-09-03] MEDS: Silver Sulfadiazine 1% Cream (20 gm) TOP SCH ×2 (14:10→17:37)
--- NOTE | 2016-09-03 14:48 | CP.PCM.PN ---
<MichaelGlenn - Last Filed: 09/03/16 14:44> Subjective - Date & Time of Evaluation Date of Evaluation: 09/03/16 Time of Evaluation: 11:20 - Subjective Subjective: Patient seen at bedside. He is comfortable and without complaints. Position changes q2hrs. States family is actively filing paperwork on his behalf regarding discharge and placement. Objective - Vital Signs/Intake and Output Vital Signs (last 24 hours): Temp Pulse Resp BP Pulse Ox 98.4 F 85 18 122/65 95 09/02/16 16:00 09/03/16 09:51 09/02/16 16:00 09/03/16 09:51 09/02/16 16:00 Intake and Output: 09/03/16 09/03/16 06:59 18:59 Intake Total 820 Output Total 500 Balance 320 - Medications Medications: Current Medications Albuterol/Ipratropium (Duoneb 3 Mg/0.5 Mg (3 Ml) Ud) 3 ml IH [id number] [facility] Last Admin: 09/03/16 13:49 Dose: 3 ml Ascorbic Acid (Vitamin C 500 Mg Tab) 500 mg PO DAILY [facility] Last Admin: 09/03/16 09:51 Dose: 500 mg Baclofen (Lioresal) 20 mg PO TID [facility] Last Admin: 09/03/16 14:09 Dose: 20 mg Bisacodyl (Dulcolax) 5 mg PO DAILY PRN PRN Reason: Constipation Meropenem 1g/NS 100mL IVPB (Meropenem 1g/Ns 100ml Ivpb) 1 gm in 100 mls @ 100 mls/hr IVPB Q8 [facility] PRN Reason: Protocol Stop: 09/03/16 22:01 Last Admin: 09/03/16 14:09 Dose: 100 mls/hr Metoprolol Tartrate (Lopressor) 25 mg PO BID [facility] Last Admin: 09/03/16 09:51 Dose: 25 mg Miconazole Nitrate (Miconazole 2% Cream) 0 ea TOP BID [facility] Last Admin: 09/03/16 10:00 Dose: 1 applic Multivitamins/Minerals (Therapeutic-M Tab) 1 tab PO DAILY [facility] Last Admin: 09/03/16 09:51 Dose: 1 tab Ondansetron HCl (Zofran Inj) 4 mg IVP Q6H PRN PRN Reason: Nausea/Vomiting Pantoprazole Sodium (Protonix Ec Tab) 40 mg PO ACB [facility] Last Admin: 09/03/16 09:51 Dose: 40 mg Pramipexole Dihydrochloride (Mirapex) 0.25 mg PO TID [facility] Last Admin: 09/03/16 14:10 Dose: 0.25 mg Silver Sulfadiazine (Silvadene 1% 20 Gm) 0 ea TOP BID [facility] Last Admin: 09/03/16 14:10 Dose: 1 applic Warfarin Sodium (Coumadin) 5 mg PO 1800 [facility] PRN Reason: Protocol Last Admin: 09/02/16 18:32 Dose: 5 mg Zinc Sulfate (Zinc Sulfate 220 Mg Cap) 220 mg PO DAILY [facility] Last Admin: 09/03/16 09:51 Dose: 220 mg - Labs Labs: 09/01/16 07:00 09/01/16 07:00 PT 26.1 Seconds (9.9-11.8) H 09/01/16 07:00 INR 2.42 (0.93-1.08) H 09/01/16 07:00 APTT 30.7 Seconds (23.7-30.8) 07/30/16 06:30 - Constitutional Appears: Non-toxic, No Acute Distress - Head Exam Head Exam: ATRAUMATIC, NORMOCEPHALIC - Eye Exam Eye Exam: EOMI, PERRL - ENT Exam ENT Exam: Mucous Membranes Moist - Neck Exam Neck Exam: Full ROM, Normal Inspection - Respiratory Exam Respiratory Exam: Clear to Ausculation Bilateral. absent: Rales, Rhonchi, Wheezes - Cardiovascular Exam Cardiovascular Exam: REGULAR RHYTHM, +S1, +S2 - GI/Abdominal Exam GI & Abdominal Exam: Distended, Soft. 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 Patient is medically stable and awaiting final outpatient planning. CRP was repeated today. Levels are now trending up again despite antibiotic therapy. 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 - ESR - 60. This is increased from last value - will d/w ID regarding continued abx coverage. - Tramadol prn for pain hematuria, asymptomatic - Urology has seen patient. - haque to remain - hematuria has now resolved. 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 Boots in place - Baclofen 20 mg PO TID - Continue Mirapex R LE DVT s/p IVC filter placed - INR is therapeutic. Will maintain INR between 2-3 - Continue coumadin. will adjust based on INR - Will check INR and labs every other day. will continue to monitor for bleeding IVC filter in place Neurogenic bowel vs. ileus: resolved. - Full diet but will monitor closely - Dulcolax PO and RC PRN Neurogenic bladder - Haque in place draining light yellow urine multiple stage 2 pressure ulcer on sacrum and buttock improving - air mattress and continue to reposition q2H - continue multivit, zinc, vitamin C PO - Wound care is following Prophylaxis GI ppx- Protonix DVT ppx- coumadin Dispo: patient is pending placement at this time. Patient's family is actively filing patient's forms for this. <Tutu Marc - Last Filed: 09/03/16 16:10> Objective - Vital Signs/Intake and Output Vital Signs (last 24 hours): Temp Pulse Resp BP Pulse Ox 98.4 F 85 18 122/65 95 09/02/16 16:00 09/03/16 09:51 09/02/16 16:00 09/03/16 09:51 09/02/16 16:00 Intake and Output: 09/03/16 09/03/16 06:59 18:59 Intake Total 820 720 Output Total 500 450 Balance 320 270 - Medications Medications: Current Medications Albuterol/Ipratropium (Duoneb 3 Mg/0.5 Mg (3 Ml) Ud) 3 ml IH [id number] [facility] Last Admin: 09/03/16 13:49 Dose: 3 ml Ascorbic Acid (Vitamin C 500 Mg Tab) 500 mg PO DAILY [facility] Last Admin: 09/03/16 09:51 Dose: 500 mg Baclofen (Lioresal) 20 mg PO TID [facility] Last Admin: 09/03/16 14:09 Dose: 20 mg Bisacodyl (Dulcolax) 5 mg PO DAILY PRN PRN Reason: Constipation Meropenem 1g/NS 100mL IVPB (Meropenem 1g/Ns 100ml Ivpb) 1 gm in 100 mls @ 100 mls/hr IVPB Q8 [facility] PRN Reason: Protocol Stop: 09/03/16 22:01 Last Admin: 09/03/16 14:09 Dose: 100 mls/hr Metoprolol Tartrate (Lopressor) 25 mg PO BID [facility] Last Admin: 09/03/16 09:51 Dose: 25 mg Miconazole Nitrate (Miconazole 2% Cream) 0 ea TOP BID [facility] Last Admin: 09/03/16 10:00 Dose: 1 applic Multivitamins/Minerals (Therapeutic-M Tab) 1 tab PO DAILY [facility] Last Admin: 09/03/16 09:51 Dose: 1 tab Ondansetron HCl (Zofran Inj) 4 mg IVP Q6H PRN PRN Reason: Nausea/Vomiting Pantoprazole Sodium (Protonix Ec Tab) 40 mg PO ACB [facility] Last Admin: 09/03/16 09:51 Dose: 40 mg Pramipexole Dihydrochloride (Mirapex) 0.25 mg PO TID [facility] Last Admin: 09/03/16 14:10 Dose: 0.25 mg Silver Sulfadiazine (Silvadene 1% 20 Gm) 0 ea TOP BID [facility] Last Admin: 09/03/16 14:10 Dose: 1 applic Warfarin Sodium (Coumadin) 5 mg PO 1800 [facility] PRN Reason: Protocol Last Admin: 09/02/16 18:32 Dose: 5 mg Zinc Sulfate (Zinc Sulfate 220 Mg Cap) 220 mg PO DAILY [facility] Last Admin: 09/03/16 09:51 Dose: 220 mg - Labs Labs: 09/01/16 07:00 09/01/16 07:00 PT 26.1 Seconds (9.9-11.8) H 09/01/16 07:00 INR 2.42 (0.93-1.08) H 09/01/16 07:00 APTT 30.7 Seconds (23.7-30.8) 07/30/16 06:30 Attending/Attestation - Attestation I have personally seen and examined this patient.: Yes I have fully participated in the care of the patient.: Yes I have reviewed all pertinent clinical information, including history, physical exam and plan: Yes Notes (Text): I have seen and examined the patient at bedside. Agree with the above note with the following additions/ exceptions: This is a 51 year old male with history of substance abuse (snorts cocaine), tobacco, alcohol use who got admitted for evaluation of back pain and found to have epidural abscess T1-T5, osteomyelitis, urinary retention and acute RLE DVT s/p IVC filter on coumadin. He underwent emergent laminectomy and epidural abscess was drained. He remains on meropenem. Repeat ESR is HIGH (60) today. CRP is 3.8. Will discuss with ID. He has involuntary spasm of Lower extremities which appears to be getting better. Continue baclofen 20 mg po bid and mirapex. He has haque catheter for neurogenic bladder which was changed last week. Hematuria resolved. His INR is therapeutic. Continue frequent turning, air mattress and wound care. Awaiting placement. Dr Tutu Marc
--- NOTE | 2016-09-03 16:37 | CP.PCM.PN ---
Subjective - Date & Time of Evaluation Date of Evaluation: 09/03/16 Time of Evaluation: 09:40 - Subjective Subjective: Comfortable, afebrile, not in distress, still with spasms in his legs. Objective - Vital Signs/Intake and Output Vital Signs (last 24 hours): Temp Pulse Resp BP Pulse Ox 98.4 F 62 18 104/60 95 09/02/16 16:00 09/02/16 16:00 09/02/16 16:00 09/02/16 16:00 09/02/16 16:00 Intake and Output: 09/03/16 09/03/16 06:59 18:59 Intake Total 820 Output Total 500 Balance 320 - Medications Medications: Current Medications Albuterol/Ipratropium (Duoneb 3 Mg/0.5 Mg (3 Ml) Ud) 3 ml IH [id number] COUNTS INCLUDE 234 BEDS AT THE [facility] Last Admin: 09/03/16 07:37 Dose: 3 ml Ascorbic Acid (Vitamin C 500 Mg Tab) 500 mg PO DAILY COUNTS INCLUDE 234 BEDS AT THE [facility] Last Admin: 09/02/16 09:59 Dose: 500 mg Baclofen (Lioresal) 20 mg PO TID COUNTS INCLUDE 234 BEDS AT THE [facility] Last Admin: 09/02/16 18:32 Dose: 20 mg Bisacodyl (Dulcolax) 5 mg PO DAILY PRN PRN Reason: Constipation Meropenem 1g/NS 100mL IVPB (Meropenem 1g/Ns 100ml Ivpb) 1 gm in 100 mls @ 100 mls/hr IVPB Q8 COUNTS INCLUDE 234 BEDS AT THE [facility] PRN Reason: Protocol Stop: 09/03/16 22:01 Last Admin: 09/03/16 05:34 Dose: 100 mls/hr Metoprolol Tartrate (Lopressor) 25 mg PO BID COUNTS INCLUDE 234 BEDS AT THE [facility] Last Admin: 09/02/16 18:31 Dose: 25 mg Miconazole Nitrate (Miconazole 2% Cream) 0 ea TOP BID COUNTS INCLUDE 234 BEDS AT THE [facility] Last Admin: 09/02/16 18:32 Dose: Not Given Multivitamins/Minerals (Therapeutic-M Tab) 1 tab PO DAILY COUNTS INCLUDE 234 BEDS AT THE [facility] Last Admin: 09/02/16 10:00 Dose: 1 tab Ondansetron HCl (Zofran Inj) 4 mg IVP Q6H PRN PRN Reason: Nausea/Vomiting Pantoprazole Sodium (Protonix Ec Tab) 40 mg PO ACB COUNTS INCLUDE 234 BEDS AT THE [facility] Last Admin: 09/02/16 09:59 Dose: 40 mg Pramipexole Dihydrochloride (Mirapex) 0.25 mg PO TID COUNTS INCLUDE 234 BEDS AT THE [facility] Last Admin: 09/02/16 18:32 Dose: 0.25 mg Silver Sulfadiazine (Silvadene 1% 20 Gm) 0 ea TOP BID COUNTS INCLUDE 234 BEDS AT THE [facility] Last Admin: 09/02/16 18:32 Dose: Not Given Warfarin Sodium (Coumadin) 5 mg PO 1800 COUNTS INCLUDE 234 BEDS AT THE [facility] PRN Reason: Protocol Last Admin: 09/02/16 18:32 Dose: 5 mg Zinc Sulfate (Zinc Sulfate 220 Mg Cap) 220 mg PO DAILY COUNTS INCLUDE 234 BEDS AT THE [facility] Last Admin: 09/02/16 10:00 Dose: 220 mg - Labs Labs: 09/01/16 07:00 09/01/16 07:00 PT 26.1 Seconds (9.9-11.8) H 09/01/16 07:00 INR 2.42 (0.93-1.08) H 09/01/16 07:00 APTT 30.7 Seconds (23.7-30.8) 07/30/16 06:30 - Constitutional Appears: Non-toxic, No Acute Distress - Head Exam Head Exam: NORMAL INSPECTION - ENT Exam ENT Exam: Mucous Membranes Moist - Neck Exam Neck Exam: absent: Lymphadenopathy, Meningismus - Respiratory Exam Respiratory Exam: Decreased Breath Sounds - Cardiovascular Exam Cardiovascular Exam: +S1, +S2 - GI/Abdominal Exam GI & Abdominal Exam: Soft. 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 with associated cord compression and lower extremity paralysis and neurogenic bladder S/P neurosurgery for abscess drainage and laminectomy POD #56 Possible drug reaction to Rocephin Partial small bowel obstruction, clinically improved and resolved significant smoking history alcohol abuse obesity with BMI 40 Plan continue Merrem (now on 8 weeks of therapy) because the CRP is still elevated, but the repeat one 08/27/2016 has decreased by half which is a good trend - will follow up today's CRP and target normalization or near-normalization of these inflammatory markers Will continue to monitor clinically
[2016-09-04] MEDS: Albuterol-Ipratrop 3 mg / 0.5 (3 ml) UD IH SCH ×3 (02:45→13:36)
[2016-09-04] MEDS: Meropenem 1g/NS 100mL IVPB 1 GM/100 ML PIGGYBACK IVPB SCH ×4 (06:40→22:27)
[2016-09-04] MEDS: Multivitamin With Minerals Tab PO SCH (09:19)
[2016-09-04] MEDS: Pantoprazole 40 mg EC Tab PO SCH (09:19)
[2016-09-04] MEDS: Silver Sulfadiazine 1% Cream (20 gm) TOP SCH ×2 (09:20→17:57)
[2016-09-04] MEDS: Miconazole 2% Cream(30 gm) TOP SCH ×2 (09:20→17:57)
--- NOTE | 2016-09-04 14:18 | CP.PCM.PN ---
<MichaelGlenn - Last Filed: 09/04/16 14:12> Subjective - Date & Time of Evaluation Date of Evaluation: 09/04/16 Time of Evaluation: 14:12 - Subjective Subjective: Patient seen and examined. Clinical status remains unchanged. Patient is pursuing placement. ESR, Sed rate elevations noted. Objective - Vital Signs/Intake and Output Vital Signs (last 24 hours): Temp Pulse Resp BP Pulse Ox 97.9 F 85 20 117/66 95 09/04/16 07:30 09/04/16 09:19 09/04/16 07:30 09/04/16 09:19 09/04/16 07:30 Intake and Output: 09/04/16 09/04/16 06:59 18:59 Intake Total 640 420 Output Total 500 700 Balance 140 -280 - Medications Medications: Current Medications Albuterol/Ipratropium (Duoneb 3 Mg/0.5 Mg (3 Ml) Ud) 3 ml IH [id number] [facility] Last Admin: 09/04/16 13:36 Dose: 3 ml Ascorbic Acid (Vitamin C 500 Mg Tab) 500 mg PO DAILY [facility] Last Admin: 09/04/16 09:19 Dose: 500 mg Baclofen (Lioresal) 20 mg PO TID [facility] Last Admin: 09/04/16 13:55 Dose: 20 mg Bisacodyl (Dulcolax) 5 mg PO DAILY PRN PRN Reason: Constipation Meropenem 1g/NS 100mL IVPB (Meropenem 1g/Ns 100ml Ivpb) 1 gm in 100 mls @ 100 mls/hr IVPB Q8 [facility] PRN Reason: Protocol Stop: 09/04/16 14:59 Last Admin: 09/04/16 13:55 Dose: 100 mls/hr Metoprolol Tartrate (Lopressor) 25 mg PO BID [facility] Last Admin: 09/04/16 09:19 Dose: 25 mg Miconazole Nitrate (Miconazole 2% Cream) 0 ea TOP BID [facility] Last Admin: 09/04/16 09:20 Dose: 1 applic Multivitamins/Minerals (Therapeutic-M Tab) 1 tab PO DAILY [facility] Last Admin: 09/04/16 09:19 Dose: 1 tab Ondansetron HCl (Zofran Inj) 4 mg IVP Q6H PRN PRN Reason: Nausea/Vomiting Pantoprazole Sodium (Protonix Ec Tab) 40 mg PO ACB [facility] Last Admin: 09/04/16 09:19 Dose: 40 mg Pramipexole Dihydrochloride (Mirapex) 0.25 mg PO TID [facility] Last Admin: 09/04/16 13:55 Dose: 0.25 mg Silver Sulfadiazine (Silvadene 1% 20 Gm) 0 ea TOP BID [facility] Last Admin: 09/04/16 09:20 Dose: 1 applic Warfarin Sodium (Coumadin) 5 mg PO 1800 [facility] PRN Reason: Protocol Last Admin: 09/03/16 17:37 Dose: 5 mg Zinc Sulfate (Zinc Sulfate 220 Mg Cap) 220 mg PO DAILY [facility] Last Admin: 09/04/16 09:19 Dose: 220 mg - Labs Labs: 09/01/16 07:00 09/01/16 07:00 PT 26.1 Seconds (9.9-11.8) H 09/01/16 07:00 INR 2.42 (0.93-1.08) H 09/01/16 07:00 APTT 30.7 Seconds (23.7-30.8) 07/30/16 06:30 - Constitutional Appears: Non-toxic, No Acute Distress - Head Exam Head Exam: ATRAUMATIC, NORMOCEPHALIC - Eye Exam Eye Exam: EOMI, PERRL - ENT Exam ENT Exam: Mucous Membranes Moist - Neck Exam Neck Exam: Full ROM. absent: Lymphadenopathy - Respiratory Exam Respiratory Exam: Clear to Ausculation Bilateral. absent: Rales, Rhonchi, Wheezes - Cardiovascular Exam Cardiovascular Exam: REGULAR RHYTHM, +S1, +S2 - GI/Abdominal Exam GI & Abdominal Exam: Firm, Soft. 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 Patient is medically stable and awaiting final outpatient planning. CRP , sed rate elevated. 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 - ESR - 60. This is increased from last value - CRP is also trending upward - will d/w ID regarding continued abx coverage. - Tramadol prn for pain hematuria, asymptomatic - Urology has seen patient. - haque to remain - hematuria has now resolved. 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 Boots in place - Baclofen 20 mg PO TID - Continue Mirapex R LE DVT s/p IVC filter placed - INR is therapeutic. Will maintain INR between 2-3 - Continue coumadin. will adjust based on INR - Will check INR and labs every other day. will continue to monitor for bleeding IVC filter in place Neurogenic bowel vs. ileus: resolved. - Full diet but will monitor closely - Dulcolax PO and RC PRN Neurogenic bladder - Haque in place draining light yellow urine multiple stage 2 pressure ulcer on sacrum and buttock improving - air mattress and continue to reposition q2H - continue multivit, zinc, vitamin C PO - Wound care is following Prophylaxis GI ppx- Protonix DVT ppx- coumadin Dispo: patient is pending placement at this time. Patient's family is actively filing patient's forms for this. <Tutu Marc - Last Filed: 09/04/16 14:23> Objective - Vital Signs/Intake and Output Vital Signs (last 24 hours): Temp Pulse Resp BP Pulse Ox 97.9 F 85 20 117/66 95 09/04/16 07:30 09/04/16 09:19 09/04/16 07:30 09/04/16 09:19 09/04/16 07:30 Intake and Output: 09/04/16 09/04/16 06:59 18:59 Intake Total 640 420 Output Total 500 700 Balance 140 -280 - Medications Medications: Current Medications Albuterol/Ipratropium (Duoneb 3 Mg/0.5 Mg (3 Ml) Ud) 3 ml IH [id number] [facility] Last Admin: 09/04/16 13:36 Dose: 3 ml Ascorbic Acid (Vitamin C 500 Mg Tab) 500 mg PO DAILY [facility] Last Admin: 09/04/16 09:19 Dose: 500 mg Baclofen (Lioresal) 20 mg PO TID [facility] Last Admin: 09/04/16 13:55 Dose: 20 mg Bisacodyl (Dulcolax) 5 mg PO DAILY PRN PRN Reason: Constipation Meropenem 1g/NS 100mL IVPB (Meropenem 1g/Ns 100ml Ivpb) 1 gm in 100 mls @ 100 mls/hr IVPB Q8 [facility] PRN Reason: Protocol Stop: 09/04/16 14:59 Last Admin: 09/04/16 13:55 Dose: 100 mls/hr Metoprolol Tartrate (Lopressor) 25 mg PO BID [facility] Last Admin: 09/04/16 09:19 Dose: 25 mg Miconazole Nitrate (Miconazole 2% Cream) 0 ea TOP BID [facility] Last Admin: 09/04/16 09:20 Dose: 1 applic Multivitamins/Minerals (Therapeutic-M Tab) 1 tab PO DAILY [facility] Last Admin: 09/04/16 09:19 Dose: 1 tab Ondansetron HCl (Zofran Inj) 4 mg IVP Q6H PRN PRN Reason: Nausea/Vomiting Pantoprazole Sodium (Protonix Ec Tab) 40 mg PO ACB [facility] Last Admin: 09/04/16 09:19 Dose: 40 mg Pramipexole Dihydrochloride (Mirapex) 0.25 mg PO TID [facility] Last Admin: 09/04/16 13:55 Dose: 0.25 mg Silver Sulfadiazine (Silvadene 1% 20 Gm) 0 ea TOP BID [facility] Last Admin: 09/04/16 09:20 Dose: 1 applic Warfarin Sodium (Coumadin) 5 mg PO 1800 [facility] PRN Reason: Protocol Last Admin: 09/03/16 17:37 Dose: 5 mg Zinc Sulfate (Zinc Sulfate 220 Mg Cap) 220 mg PO DAILY [facility] Last Admin: 09/04/16 09:19 Dose: 220 mg - Labs Labs: 09/01/16 07:00 09/01/16 07:00 PT 26.1 Seconds (9.9-11.8) H 09/01/16 07:00 INR 2.42 (0.93-1.08) H 09/01/16 07:00 APTT 30.7 Seconds (23.7-30.8) 07/30/16 06:30 Attending/Attestation - Attestation I have personally seen and examined this patient.: Yes I have fully participated in the care of the patient.: Yes I have reviewed all pertinent clinical information, including history, physical exam and plan: Yes Notes (Text): I have seen and examined the patient at bedside. Agree with the above note with the following additions/ exceptions: This is a 51 year old male with history of substance abuse (snorts cocaine), tobacco, alcohol use who got admitted for evaluation of back pain and found to have epidural abscess T1-T5, osteomyelitis, urinary retention and acute RLE DVT s/p IVC filter on coumadin. He underwent emergent laminectomy and epidural abscess was drained. He remains on meropenem. Repeat ESR is high (60). CRP is 3.8. Will discuss with ID. He has involuntary spasm of Lower extremities which appears to be getting better. Continue baclofen 20 mg po bid and mirapex. He has haque catheter for neurogenic bladder which was changed last week. Hematuria noted today. His INR is therapeutic. Continue frequent turning, air mattress and wound care. Awaiting placement. Dr Tutu Marc
--- NOTE | 2016-09-04 20:39 | PN ---
DATE: 09/04/2016 The patient is in bed in no acute distress, nontoxic. PHYSICAL EXAMINATION: VITAL SIGNS: Temperature is 98, blood pressure is 116/80, respiratory rate of 18. HEENT: Unremarkable. NECK: Supple. LUNGS: Decreased breath sounds. HEART: Normal S1, S2. ABDOMEN: Soft, nontender. LABORATORY DATA: Reveals the last sed rate is 60. The C-reactive protein, last one is 5.93 on 7. Urinalysis is noted. Review of the orders are noted. ASSESSMENT AND PLAN: This is a 51-year-old male with epidural abscess secondary to Streptococcus pne umonia and associated with cord compression and lower extremity paralysis; neurogenic bladder, status post neurosurgery and abscess drainage and laminectomy, postop day #57 and a drug reaction to ceftri axone. Currently on meropenem. He will need at least 10 weeks of antibiotics, now on 8 weeks of the rapy. Continue the C-reactive protein, sed rate, and consider repeating the MRI of the spine. Last MRI was on 07/07. Should have a repeat MRI of the spine. Colt Coronel MD cc: 350 TT: 09/04/2016 20:39:12 Confirmation # [id number] Dictation # [id number] tn
[2016-09-05] MEDS: Albuterol-Ipratrop 3 mg / 0.5 (3 ml) UD IH SCH ×3 (01:51→20:08)
[2016-09-05] MEDS: Meropenem 1g/NS 100mL IVPB 1 GM/100 ML PIGGYBACK IVPB SCH ×3 (06:11→21:50)
[2016-09-05] MEDS: Pantoprazole 40 mg EC Tab PO SCH (07:59)
[2016-09-05] MEDS: Multivitamin With Minerals Tab PO SCH (09:36)
[2016-09-05] MEDS: Silver Sulfadiazine 1% Cream (20 gm) TOP SCH ×2 (09:38→18:45)
[2016-09-05] MEDS: Miconazole 2% Cream(30 gm) TOP SCH ×2 (10:00→18:45)
--- NOTE | 2016-09-05 13:48 | CP.PCM.PN ---
<Glenn Rodriguez - Last Filed: 09/05/16 13:44> Subjective - Date & Time of Evaluation Date of Evaluation: 09/05/16 Time of Evaluation: 13:44 - Subjective Subjective: Patient is doing well. He notes some feeling returning to the lateral aspect of b/l feet. He is participating in physical therapy. Patient's sister is filing paperwork. Patient states he will update case management on his progress. Otherwise patient has no complaints. Objective - Vital Signs/Intake and Output Vital Signs (last 24 hours): Temp Pulse Resp BP Pulse Ox 98 F 84 20 127/66 95 09/05/16 07:40 09/05/16 09:35 09/05/16 07:40 09/05/16 09:35 09/05/16 07:40 Intake and Output: 09/05/16 09/05/16 06:59 18:59 Intake Total 720 Output Total 750 Balance -30 - Medications Medications: Current Medications Albuterol/Ipratropium (Duoneb 3 Mg/0.5 Mg (3 Ml) Ud) 3 ml IH [id number] [facility] Last Admin: 09/05/16 07:32 Dose: 3 ml Ascorbic Acid (Vitamin C 500 Mg Tab) 500 mg PO DAILY [facility] Last Admin: 09/05/16 09:36 Dose: 500 mg Baclofen (Lioresal) 20 mg PO TID [facility] Last Admin: 09/05/16 09:34 Dose: 20 mg Bisacodyl (Dulcolax) 5 mg PO DAILY PRN PRN Reason: Constipation Meropenem 1g/NS 100mL IVPB (Meropenem 1g/Ns 100ml Ivpb) 1 gm in 100 mls @ 100 mls/hr IVPB Q8 [facility] PRN Reason: Protocol Stop: 10/02/16 17:44 Last Admin: 09/05/16 06:11 Dose: 100 mls/hr Metoprolol Tartrate (Lopressor) 25 mg PO BID [facility] Last Admin: 09/05/16 09:35 Dose: 25 mg Miconazole Nitrate (Miconazole 2% Cream) 0 ea TOP BID [facility] Last Admin: 09/04/16 17:57 Dose: 1 applic Multivitamins/Minerals (Therapeutic-M Tab) 1 tab PO DAILY [facility] Last Admin: 09/05/16 09:36 Dose: 1 tab Ondansetron HCl (Zofran Inj) 4 mg IVP Q6H PRN PRN Reason: Nausea/Vomiting Pantoprazole Sodium (Protonix Ec Tab) 40 mg PO ACB [facility] Last Admin: 09/05/16 07:59 Dose: 40 mg Pramipexole Dihydrochloride (Mirapex) 0.25 mg PO TID [facility] Last Admin: 09/05/16 09:36 Dose: 0.25 mg Silver Sulfadiazine (Silvadene 1% 20 Gm) 0 ea TOP BID [facility] Last Admin: 09/05/16 09:38 Dose: 1 applic Warfarin Sodium (Coumadin) 5 mg PO 1800 [facility] PRN Reason: Protocol Last Admin: 09/04/16 17:56 Dose: 5 mg Zinc Sulfate (Zinc Sulfate 220 Mg Cap) 220 mg PO DAILY [facility] Last Admin: 09/05/16 09:37 Dose: 220 mg - Labs Labs: 09/01/16 07:00 09/01/16 07:00 PT 26.1 Seconds (9.9-11.8) H 09/01/16 07:00 INR 2.42 (0.93-1.08) H 09/01/16 07:00 APTT 30.7 Seconds (23.7-30.8) 07/30/16 06:30 - Constitutional Appears: Non-toxic, No Acute Distress - Head Exam Head Exam: ATRAUMATIC, NORMOCEPHALIC - Eye Exam Eye Exam: EOMI, PERRL - ENT Exam ENT Exam: Mucous Membranes Moist - Neck Exam Neck Exam: Normal Inspection. absent: Lymphadenopathy - Respiratory Exam Respiratory Exam: Clear to Ausculation Bilateral. absent: Rales, Rhonchi, Wheezes - Cardiovascular Exam Cardiovascular Exam: REGULAR RHYTHM, +S1, +S2 - GI/Abdominal Exam GI & Abdominal Exam: Soft, Normal Bowel Sounds. 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 Patient is medically stable and awaiting final outpatient planning. CRP , sed rate elevated repeated and remain elevated. 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 - ESR - 60. This is increased from last value - CRP is also trending upward - ID following - patient will need 10 weeks total. This will be week #8. MRI of the spine is recommended. - Tramadol prn for pain hematuria, asymptomatic - Urology has seen patient. - haque to remain - hematuria has now resolved. 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 Boots in place - Baclofen 20 mg PO TID - Continue Mirapex R LE DVT s/p IVC filter placed - INR is therapeutic. Will maintain INR between 2-3 - Continue coumadin. will adjust based on INR - Will check INR and labs every other day. will continue to monitor for bleeding IVC filter in place Neurogenic bowel vs. ileus: resolved. - Full diet but will monitor closely - Dulcolax PO and RC PRN Neurogenic bladder - Haque in place draining light yellow urine multiple stage 2 pressure ulcer on sacrum and buttock improving - air mattress and continue to reposition q2H - continue multivit, zinc, vitamin C PO - Wound care is following Prophylaxis GI ppx- Protonix DVT ppx- coumadin Dispo: patient is pending placement at this time. Patient's family is actively filing patient's forms for this. <Tutu Marc - Last Filed: 09/05/16 16:18> Objective - Vital Signs/Intake and Output Vital Signs (last 24 hours): Temp Pulse Resp BP Pulse Ox 98 F 84 20 127/66 95 09/05/16 07:40 09/05/16 09:35 09/05/16 07:40 09/05/16 09:35 09/05/16 07:40 Intake and Output: 09/05/16 09/05/16 06:59 18:59 Intake Total 720 Output Total 750 Balance -30 - Medications Medications: Current Medications Albuterol/Ipratropium (Duoneb 3 Mg/0.5 Mg (3 Ml) Ud) 3 ml IH [id number] [facility] Last Admin: 09/05/16 07:32 Dose: 3 ml Ascorbic Acid (Vitamin C 500 Mg Tab) 500 mg PO DAILY [facility] Last Admin: 09/05/16 09:36 Dose: 500 mg Baclofen (Lioresal) 20 mg PO TID [facility] Last Admin: 09/05/16 14:02 Dose: 20 mg Bisacodyl (Dulcolax) 5 mg PO DAILY PRN PRN Reason: Constipation Meropenem 1g/NS 100mL IVPB (Meropenem 1g/Ns 100ml Ivpb) 1 gm in 100 mls @ 100 mls/hr IVPB Q8 [facility] PRN Reason: Protocol Stop: 10/02/16 17:44 Last Admin: 09/05/16 14:01 Dose: 100 mls/hr Metoprolol Tartrate (Lopressor) 25 mg PO BID [facility] Last Admin: 09/05/16 09:35 Dose: 25 mg Miconazole Nitrate (Miconazole 2% Cream) 0 ea TOP BID [facility] Last Admin: 09/05/16 10:00 Dose: 1 applic Multivitamins/Minerals (Therapeutic-M Tab) 1 tab PO DAILY [facility] Last Admin: 09/05/16 09:36 Dose: 1 tab Ondansetron HCl (Zofran Inj) 4 mg IVP Q6H PRN PRN Reason: Nausea/Vomiting Pantoprazole Sodium (Protonix Ec Tab) 40 mg PO ACB [facility] Last Admin: 09/05/16 07:59 Dose: 40 mg Pramipexole Dihydrochloride (Mirapex) 0.25 mg PO TID [facility] Last Admin: 09/05/16 14:01 Dose: 0.25 mg Silver Sulfadiazine (Silvadene 1% 20 Gm) 0 ea TOP BID [facility] Last Admin: 09/05/16 09:38 Dose: 1 applic Warfarin Sodium (Coumadin) 5 mg PO 1800 [facility] PRN Reason: Protocol Last Admin: 09/04/16 17:56 Dose: 5 mg Zinc Sulfate (Zinc Sulfate 220 Mg Cap) 220 mg PO DAILY [facility] Last Admin: 09/05/16 09:37 Dose: 220 mg - Labs Labs: 09/01/16 07:00 09/01/16 07:00 PT 26.1 Seconds (9.9-11.8) H 09/01/16 07:00 INR 2.42 (0.93-1.08) H 09/01/16 07:00 APTT 30.7 Seconds (23.7-30.8) 07/30/16 06:30 Attending/Attestation - Attestation I have personally seen and examined this patient.: Yes I have fully participated in the care of the patient.: Yes I have reviewed all pertinent clinical information, including history, physical exam and plan: Yes Notes (Text): I have seen and examined the patient at bedside. Agree with the above note with the following additions/ exceptions: This is a 51 year old male with history of substance abuse (snorts cocaine), tobacco, alcohol use who got admitted for evaluation of back pain and found to have epidural abscess T1-T5, osteomyelitis, urinary retention and acute RLE DVT s/p IVC filter on coumadin. He underwent emergent laminectomy and epidural abscess was drained. He remains on meropenem. Repeat ESR is high (60). CRP is 3.8. Need to continue for atleast 10 weeks as per ID. Will order MRI spine Lumbar and thoracic. He has involuntary spasm of Lower extremities which appears to be getting better. Continue baclofen 20 mg po bid and mirapex. He has haque catheter for neurogenic bladder which was changed last week. Hematuria noted. Will check INR in am. Continue frequent turning, air mattress and wound care. Awaiting placement. Dr Tutu Marc
--- NOTE | 2016-09-05 16:32 | CP.PCM.PN ---
Subjective - Date & Time of Evaluation Date of Evaluation: 09/05/16 Time of Evaluation: 11:20 - Subjective Subjective: Comfortable, not in distress, afebrile. Objective - Vital Signs/Intake and Output Vital Signs (last 24 hours): Temp Pulse Resp BP Pulse Ox 98 F 81 20 124/60 95 09/05/16 07:40 09/05/16 07:40 09/05/16 07:40 09/05/16 07:40 09/05/16 07:40 Intake and Output: 09/05/16 09/05/16 06:59 18:59 Intake Total 720 Output Total 750 Balance -30 - Medications Medications: Current Medications Albuterol/Ipratropium (Duoneb 3 Mg/0.5 Mg (3 Ml) Ud) 3 ml IH [id number] [facility] Last Admin: 09/05/16 07:32 Dose: 3 ml Ascorbic Acid (Vitamin C 500 Mg Tab) 500 mg PO DAILY [facility] Last Admin: 09/04/16 09:19 Dose: 500 mg Baclofen (Lioresal) 20 mg PO TID [facility] Last Admin: 09/04/16 17:56 Dose: 20 mg Bisacodyl (Dulcolax) 5 mg PO DAILY PRN PRN Reason: Constipation Meropenem 1g/NS 100mL IVPB (Meropenem 1g/Ns 100ml Ivpb) 1 gm in 100 mls @ 100 mls/hr IVPB Q8 [facility] PRN Reason: Protocol Stop: 10/02/16 17:44 Last Admin: 09/05/16 06:11 Dose: 100 mls/hr Metoprolol Tartrate (Lopressor) 25 mg PO BID [facility] Last Admin: 09/04/16 17:56 Dose: 25 mg Miconazole Nitrate (Miconazole 2% Cream) 0 ea TOP BID [facility] Last Admin: 09/04/16 17:57 Dose: 1 applic Multivitamins/Minerals (Therapeutic-M Tab) 1 tab PO DAILY [facility] Last Admin: 09/04/16 09:19 Dose: 1 tab Ondansetron HCl (Zofran Inj) 4 mg IVP Q6H PRN PRN Reason: Nausea/Vomiting Pantoprazole Sodium (Protonix Ec Tab) 40 mg PO ACB [facility] Last Admin: 09/05/16 07:59 Dose: 40 mg Pramipexole Dihydrochloride (Mirapex) 0.25 mg PO TID [facility] Last Admin: 09/04/16 17:56 Dose: 0.25 mg Silver Sulfadiazine (Silvadene 1% 20 Gm) 0 ea TOP BID [facility] Last Admin: 09/04/16 17:57 Dose: 1 applic Warfarin Sodium (Coumadin) 5 mg PO 1800 [facility] PRN Reason: Protocol Last Admin: 09/04/16 17:56 Dose: 5 mg Zinc Sulfate (Zinc Sulfate 220 Mg Cap) 220 mg PO DAILY [facility] Last Admin: 09/04/16 09:19 Dose: 220 mg - Labs Labs: 09/01/16 07:00 09/01/16 07:00 PT 26.1 Seconds (9.9-11.8) H 09/01/16 07:00 INR 2.42 (0.93-1.08) H 09/01/16 07:00 APTT 30.7 Seconds (23.7-30.8) 07/30/16 06:30 - Constitutional Appears: Non-toxic, No Acute Distress - Head Exam Head Exam: NORMAL INSPECTION - ENT Exam ENT Exam: Mucous Membranes Moist - Neck Exam Neck Exam: absent: Lymphadenopathy, Meningismus - Respiratory Exam Respiratory Exam: Decreased Breath Sounds - Cardiovascular Exam Cardiovascular Exam: +S1, +S2 - GI/Abdominal Exam GI & Abdominal Exam: Soft. 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 with associated cord compression and lower extremity paralysis and neurogenic bladder S/P neurosurgery for abscess drainage and laminectomy POD #58 Possible drug reaction to Rocephin Partial small bowel obstruction, clinically improved and resolved significant smoking history alcohol abuse obesity with BMI 40 Plan continue Merrem (now on 8 weeks of therapy) because the CRP is still elevated; will follow up weekly ESR, CRP Will continue to monitor clinically
[2016-09-06] MEDS: Albuterol-Ipratrop 3 mg / 0.5 (3 ml) UD IH SCH ×4 (01:54→19:40)
[2016-09-06] MEDS: Meropenem 1g/NS 100mL IVPB 1 GM/100 ML PIGGYBACK IVPB SCH ×3 (05:16→21:11)
[2016-09-06 08:11] LABS: INR 2.34 (0.93-1.08); PROTHROMBIN TIME 25.3 Seconds (9.9-11.8)
[2016-09-06] MEDS: Pantoprazole 40 mg EC Tab PO SCH (08:30)
[2016-09-06] MEDS: Multivitamin With Minerals Tab PO SCH (09:07)
[2016-09-06] MEDS: Miconazole 2% Cream(30 gm) TOP SCH ×2 (11:00→18:06)
[2016-09-06] MEDS: Silver Sulfadiazine 1% Cream (20 gm) TOP SCH ×2 (11:00→18:06)
--- NOTE | 2016-09-06 12:10 | CP.PCM.PN ---
Subjective - Date & Time of Evaluation Date of Evaluation: 09/06/16 Time of Evaluation: 08:00 - Subjective Subjective: I have seen and examined patient at bedside. He reports improved sensation in his right chadwick and 4&5th right toes. His last BM was yesterday. Denies any chest pain, abdominal pain, fever, cough or any other complaints. He has been using incentive spirometry. Objective - Vital Signs/Intake and Output Vital Signs (last 24 hours): Temp Pulse Resp BP Pulse Ox 97.1 F L 56 L 18 118/79 96 09/06/16 07:30 09/06/16 07:30 09/06/16 07:30 09/06/16 07:30 09/06/16 07:30 Intake and Output: 09/06/16 09/06/16 06:59 18:59 Intake Total 1100 Output Total 800 Balance 300 - Medications Medications: Current Medications Albuterol/Ipratropium (Duoneb 3 Mg/0.5 Mg (3 Ml) Ud) 3 ml IH [id number] [facility] Last Admin: 09/06/16 01:54 Dose: 3 ml Ascorbic Acid (Vitamin C 500 Mg Tab) 500 mg PO DAILY [facility] Last Admin: 09/05/16 09:36 Dose: 500 mg Baclofen (Lioresal) 20 mg PO TID [facility] Last Admin: 09/05/16 18:44 Dose: 20 mg Bisacodyl (Dulcolax) 5 mg PO DAILY PRN PRN Reason: Constipation Meropenem 1g/NS 100mL IVPB (Meropenem 1g/Ns 100ml Ivpb) 1 gm in 100 mls @ 100 mls/hr IVPB Q8 [facility] PRN Reason: Protocol Stop: 10/02/16 17:44 Last Admin: 09/06/16 05:16 Dose: 100 mls/hr Metoprolol Tartrate (Lopressor) 25 mg PO BID [facility] Last Admin: 09/05/16 18:44 Dose: 25 mg Miconazole Nitrate (Miconazole 2% Cream) 0 ea TOP BID [facility] Last Admin: 09/05/16 18:45 Dose: 1 applic Multivitamins/Minerals (Therapeutic-M Tab) 1 tab PO DAILY [facility] Last Admin: 09/05/16 09:36 Dose: 1 tab Ondansetron HCl (Zofran Inj) 4 mg IVP Q6H PRN PRN Reason: Nausea/Vomiting Pantoprazole Sodium (Protonix Ec Tab) 40 mg PO ACB [facility] Last Admin: 09/05/16 07:59 Dose: 40 mg Pramipexole Dihydrochloride (Mirapex) 0.25 mg PO TID [facility] Last Admin: 09/05/16 18:44 Dose: 0.25 mg Silver Sulfadiazine (Silvadene 1% 20 Gm) 0 ea TOP BID [facility] Last Admin: 09/05/16 18:45 Dose: 1 applic Warfarin Sodium (Coumadin) 5 mg PO 1800 [facility] PRN Reason: Protocol Last Admin: 09/05/16 18:44 Dose: 5 mg Zinc Sulfate (Zinc Sulfate 220 Mg Cap) 220 mg PO DAILY [facility] Last Admin: 09/05/16 09:37 Dose: 220 mg - Labs Labs: 09/01/16 07:00 09/01/16 07:00 PT 25.3 Seconds (9.9-11.8) H 09/06/16 07:54 INR 2.34 (0.93-1.08) H 09/06/16 07:54 APTT 30.7 Seconds (23.7-30.8) 07/30/16 06:30 - Constitutional Appears: Well, Non-toxic, No Acute Distress - Head Exam Head Exam: ATRAUMATIC, NORMAL INSPECTION, NORMOCEPHALIC - Eye Exam Eye Exam: EOMI, Normal appearance Pupil Exam: PERRL - Neck Exam Neck Exam: Full ROM, Normal Inspection - Respiratory Exam Respiratory Exam: Clear to Ausculation Bilateral - Cardiovascular Exam Cardiovascular Exam: REGULAR RHYTHM, +S1, +S2 - GI/Abdominal Exam GI & Abdominal Exam: Soft, Normal Bowel Sounds. absent: Distended, Tenderness - Rectal Exam Rectal Exam: Deferred - Neurological Exam Neurological Exam: Alert, Awake, Motor Sensory Deficit, Oriented x3 Neuro motor strength exam: Left Upper Extremity: 5, Right Upper Extremity: 5, Left Lower Extremity: 0, Right Lower Extremity: 0 - Psychiatric Exam Psychiatric exam: Normal Affect, Normal Mood - Skin Skin Exam: Dry, Intact, Normal Color, Warm Assessment and Plan - Assessment and Plan (Free Text) Plan: This is a 51 year old male with history of substance abuse (snorts cocaine), tobacco, alcohol use who got admitted for evaluation of back pain and found to have epidural abscess T1-T5, osteomyelitis, urinary retention and acute RLE DVT s/p IVC filter on coumadin. He underwent emergent laminectomy and epidural abscess was drained. 1-Epidural space abscess s/p lamenectomy T2-T4: Repeat ESR is high (60). CRP is 3.8. Need to continue for atleast 10 weeks of meropenem as per ID. MRI spine Lumbar and thoracic ordered. 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 Frequent repositioning. 3-Involuntary movements of bilateral lower extremities: Continue baclofen and mirapex. 4-Right LE DVT s/p IVC filter: INR therapeutic. Continue coumadin. 5-Hematuria: Hb is stable. Continue coumadin. Dr Iqbal changed the haque catheter last week. 6-Multiple stage 2 ulcer on sacrum and buttocks area: Improving. Continue air mattress, frequent repositioning, MVI, zinc and vitamin C. Continue wound care. 7-GI prophylaxis: continue protonix. 8-DVT prophylaxis: continue coumadin. 9-Dispo: Awaiting [facility] placement.
--- NOTE | 2016-09-06 14:25 | PN ---
DATE: 09/06/2016 The patient is in bed in no acute distress, seen early this morning. PHYSICAL EXAMINATION: VITAL SIGNS: Temperature is 97, blood pressure is 118/70, respiratory rate of 16. HEENT: Unremarkable. NECK: Supple. LUNGS: Have decreased breath sounds. HEART: Normal S1, S2. ABDOMEN: Soft, nontender. LABORATORY DATA: Reveals a white count of 6.1. Chemistries are noted. BUN of 20, creatinine of 0.6 . C-reactive protein is 5.93. 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 Currently on meropenem. Continue f ollowing C-reactive protein, sed rate, and should have an MRI of the spine repeated. Colt Coronel MD cc: 350 TT: 09/06/2016 14:24:52 Confirmation # [id number] Dictation # [id number] erik
[2016-09-07] MEDS: Albuterol-Ipratrop 3 mg / 0.5 (3 ml) UD IH SCH ×4 (02:15→22:31)
[2016-09-07] MEDS: Meropenem 1g/NS 100mL IVPB 1 GM/100 ML PIGGYBACK IVPB SCH ×3 (05:09→21:13)
[2016-09-07] MEDS: Pantoprazole 40 mg EC Tab PO SCH (07:54)
[2016-09-07] MEDS: Miconazole 2% Cream(30 gm) TOP SCH ×2 (09:16→17:09)
[2016-09-07] MEDS: Multivitamin With Minerals Tab PO SCH (09:16)
[2016-09-07] MEDS: Silver Sulfadiazine 1% Cream (20 gm) TOP SCH ×2 (09:16→17:09)
--- NOTE | 2016-09-07 11:44 | PN ---
DATE: 09/07/2016 The patient is in bed in no acute distress, nontoxic. PHYSICAL EXAMINATION: VITAL SIGNS: Temperature is 97. Blood pressure is 120/70, respiratory rate of 16. HEENT: Unremarkable. NECK: Supple. LUNGS: Have decreased breath sounds. HEART: Normal S1, S2. ABDOMEN: Soft, nontender. LABORATORY EXAMINATION: Reveals the patient's white count is 6.1, hemoglobin of 12, platelets of 164 . Chemistries reveal the BUN of 20, creatinine of 0.6. Urinalysis is noted. Serology is noted. 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 Post-procedure day #59, the patient HAD A REACTION TO CEFTRIAXONE. Currently on meropenem. Brian l need to follow the C-reactive protein and sed rate and a repeat MRI. Case discussed with Dr. Marc this morning. Review of the orders confirms the patient to be on meropenem. Continue the present co urse. Colt Coronel MD cc: 350 TT: 09/07/2016 11:44:08 Confirmation # [id number] Dictation # [id number] cristina
--- NOTE | 2016-09-07 14:00 | CP.PCM.PN ---
Subjective - Date & Time of Evaluation Date of Evaluation: 09/07/16 Time of Evaluation: 08:30 - Subjective Subjective: I have seen and examined patient at bedside. He reports improved sensation in his right chadwick and 4&5th right toes for the past few days. Denies any chest pain , abdominal pain, fever, cough or any other complaints. He has been using incentive spirometry. Appetite is good. Objective - Vital Signs/Intake and Output Vital Signs (last 24 hours): Temp Pulse Resp BP Pulse Ox 98.5 F 60 20 129/77 96 09/07/16 08:00 09/07/16 08:00 09/07/16 08:00 09/07/16 08:00 09/07/16 08:00 Intake and Output: 09/07/16 09/07/16 06:59 18:59 Intake Total 920 Output Total 600 Balance 320 - Medications Medications: Current Medications Albuterol/Ipratropium (Duoneb 3 Mg/0.5 Mg (3 Ml) Ud) 3 ml IH [id number] Last Admin: 09/07/16 07:15 Dose: 3 ml Ascorbic Acid (Vitamin C 500 Mg Tab) 500 mg PO DAILY [facility] Last Admin: 09/06/16 09:07 Dose: 500 mg Baclofen (Lioresal) 20 mg PO TID [facility] Last Admin: 09/06/16 18:09 Dose: 20 mg Bisacodyl (Dulcolax) 5 mg PO DAILY PRN PRN Reason: Constipation Meropenem 1g/NS 100mL IVPB (Meropenem 1g/Ns 100ml Ivpb) 1 gm in 100 mls @ 100 mls/hr IVPB Q8 [facility] PRN Reason: Protocol Stop: 10/02/16 17:44 Last Admin: 09/07/16 05:09 Dose: 100 mls/hr Metoprolol Tartrate (Lopressor) 25 mg PO BID [facility] Last Admin: 09/06/16 18:05 Dose: 25 mg Miconazole Nitrate (Miconazole 2% Cream) 0 ea TOP BID [facility] Last Admin: 09/06/16 18:06 Dose: 1 applic Multivitamins/Minerals (Therapeutic-M Tab) 1 tab PO DAILY [facility] Last Admin: 09/06/16 09:07 Dose: 1 tab Ondansetron HCl (Zofran Inj) 4 mg IVP Q6H PRN PRN Reason: Nausea/Vomiting Pantoprazole Sodium (Protonix Ec Tab) 40 mg PO ACB [facility] Last Admin: 09/07/16 07:54 Dose: 40 mg Pramipexole Dihydrochloride (Mirapex) 0.25 mg PO TID [facility] Last Admin: 09/06/16 18:06 Dose: 0.25 mg Silver Sulfadiazine (Silvadene 1% 20 Gm) 0 ea TOP BID [facility] Last Admin: 09/06/16 18:06 Dose: 1 applic Warfarin Sodium (Coumadin) 5 mg PO 1800 [facility] PRN Reason: Protocol Last Admin: 09/06/16 18:05 Dose: 5 mg Zinc Sulfate (Zinc Sulfate 220 Mg Cap) 220 mg PO DAILY [facility] Last Admin: 09/06/16 09:05 Dose: 220 mg - Labs Labs: 09/01/16 07:00 09/01/16 07:00 PT 25.3 Seconds (9.9-11.8) H 09/06/16 07:54 INR 2.34 (0.93-1.08) H 09/06/16 07:54 APTT 30.7 Seconds (23.7-30.8) 07/30/16 06:30 - Constitutional Appears: Well, Non-toxic, No Acute Distress - Head Exam Head Exam: ATRAUMATIC, NORMAL INSPECTION, NORMOCEPHALIC - Eye Exam Eye Exam: EOMI, Normal appearance Pupil Exam: PERRL - ENT Exam ENT Exam: Mucous Membranes Moist - Neck Exam Neck Exam: Full ROM, Normal Inspection - Respiratory Exam Respiratory Exam: NORMAL BREATHING PATTERN. absent: Accessory Muscle Use, Chest Wall Tenderness - Cardiovascular Exam Cardiovascular Exam: REGULAR RHYTHM, +S1, +S2 - GI/Abdominal Exam GI & Abdominal Exam: Distended, Soft, Normal Bowel Sounds. absent: Tenderness - Rectal Exam Rectal Exam: Deferred - Extremities Exam Extremities Exam: Normal Inspection - Neurological Exam Neurological Exam: Alert, Awake, Motor Sensory Deficit, Oriented x3 Neuro motor strength exam: Left Upper Extremity: 5, Right Upper Extremity: 5, Left Lower Extremity: 0, Right Lower Extremity: 0 - Psychiatric Exam Psychiatric exam: Normal Affect, Normal Mood - Skin Skin Exam: Dry, Intact, Normal Color, Warm Assessment and Plan - Assessment and Plan (Free Text) Plan: This is a 51 year old male with history of substance abuse (snorts cocaine), tobacco, alcohol use who got admitted for evaluation of back pain and found to have epidural abscess T1-T5, osteomyelitis, urinary retention and acute RLE DVT s/p IVC filter on coumadin. He underwent emergent laminectomy and epidural abscess was drained. 1-Epidural space abscess s/p lamenectomy T2-T4: Repeat ESR is high (60). CRP is 3.8. Need to continue for atleast 10 weeks of meropenem as per ID. MRI spine Lumbar and thoracic will be done today. Discussed with ID. Will repeat cbc, esr , crp, inr n 09/10/2016. 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 Frequent repositioning. 3-Involuntary movements of bilateral lower extremities: Continue baclofen and mirapex. 4-Right LE DVT s/p IVC filter: INR therapeutic. Continue coumadin. 5-Hematuria: Hb is stable. Continue coumadin. Dr Iqbal changed the haque catheter last week. 6-Multiple stage 2 ulcer on sacrum and buttocks area: Improving. Continue air mattress, frequent repositioning, MVI, zinc and vitamin C. Continue wound care. 7-GI prophylaxis: continue protonix. 8-DVT prophylaxis: continue coumadin. 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
[2016-09-08] MEDS: Albuterol-Ipratrop 3 mg / 0.5 (3 ml) UD IH SCH ×2 (04:55→07:49)
[2016-09-08] MEDS: Meropenem 1g/NS 100mL IVPB 1 GM/100 ML PIGGYBACK IVPB SCH ×3 (05:23→21:44)
[2016-09-08] MEDS: Pantoprazole 40 mg EC Tab PO SCH (08:26)
[2016-09-08] MEDS ORDERED: Gadodiamide 287 MG/ML VIAL (20ML) IV ONE (10:45)
[2016-09-08] MEDS: Multivitamin With Minerals Tab PO SCH (11:49)
[2016-09-08] MEDS: Silver Sulfadiazine 1% Cream (20 gm) TOP SCH (11:50)
[2016-09-08] MEDS: Miconazole 2% Cream(30 gm) TOP SCH ×2 (11:50→18:14)
--- NOTE | 2016-09-08 12:12 | MRI ---
PROCEDURE: MR LUMBAR SPINE WITHOUT CONTRAST HISTORY: r/o abscess or osteomyelitis COMPARISON: 07/07/2016 TECHNIQUE: Multiecho multiplanar sequences were performed through the lumbar spine without the use of intravenous contrast. FINDINGS: Normal lumbar lordosis. Vertebral body heights are preserved. Marrow signal unremarkable. Conus medullaris unremarkable at the level of T12 Paraspinal soft tissues are unremarkable. T12-L1: No disc herniation, spinal canal stenosis or neural foraminal narrowing. L1-2: No disc herniation, spinal canal stenosis or neural foraminal narrowing. L2-3: No disc herniation, spinal canal stenosis or neural foraminal narrowing. L3-4: No disc herniation, spinal canal stenosis or neural foraminal narrowing. Mild loss of disc height L4-5: No disc herniation, spinal canal stenosis or neural foraminal narrowing. Mild loss of disc height L5-S1: Mild disc bulge with radial tear in the outer fibers of the annulus. There is bilateral foraminal stenosis. There is moderate facet arthropathy OTHER FINDINGS: None. IMPRESSION: Disc bulge and radial tear in the outer fibers of the annulus at L5-S1. There is bilateral foraminal stenosis at this level
--- NOTE | 2016-09-08 12:49 | MRI ---
PROCEDURE: MR THORACIC SPINE WITH AND WITHOUT CONTRAST HISTORY: r/o osteomyelitis vs abscess COMPARISON: MRI 07/07/2016 TECHNIQUE: Multiecho multiplanar sequences were performed through the thoracic spine with and without the use of intravenous contrast. 15 cc of Omniscan were utilized. FINDINGS: ALIGNMENT: Normal thoracic spinal alignment. Normal thoracic kyphosis. VERTEBRA: There is enhancement of the T3-4 disc space consistent with disc space infection. The findings have improved since the previous study which showed extensive marrow edema in the T3 and T4 vertebral bodies with an associated epidural abscess. This was treated surgically. The epidural abscess is no longer seen. The marrow edema has improved. MARROW: As above PARASPINAL SOFT TISSUES: Unremarkable. CORD: There are focal areas of abnormal signal intensity within the thoracic cord at the T3 and T4 level. This may represent myelomalacia or infarction of the cord at the level of the previously seen epidural abscess. DISCS: There is enhancement in the disc space at T3-4 consistent with with a history of discitis ENHANCEMENT: As above OTHER FINDINGS: None. IMPRESSION: Enhancement in the disc space at T3-4 consistent with history of discitis. There has been improvement in the marrow edema of the T3 and T4 vertebral bodies consistent with improving osteomyelitis. The epidural abscess is no longer seen post surgical treatment. Areas of infarction or myelomalacia within the spinal cord
--- NOTE | 2016-09-08 14:04 | CP.PCM.PN ---
<MichaelGlenn - Last Filed: 09/08/16 14:01> Subjective - Date & Time of Evaluation Date of Evaluation: 09/08/16 Time of Evaluation: 14:01 - Subjective Subjective: Patient seen at bedside. No complaints at this time. Family continues to manage placement issues. Objective - Vital Signs/Intake and Output Vital Signs (last 24 hours): Temp Pulse Resp BP Pulse Ox 98.5 F 64 20 131/85 97 09/08/16 08:00 09/08/16 11:49 09/08/16 08:00 09/08/16 11:49 09/08/16 08:00 Intake and Output: 09/08/16 09/08/16 06:59 18:59 Intake Total 580 Output Total 400 Balance 180 - Medications Medications: Current Medications Ascorbic Acid (Vitamin C 500 Mg Tab) 500 mg PO DAILY [facility] Last Admin: 09/08/16 11:49 Dose: 500 mg Baclofen (Lioresal) 20 mg PO TID [facility] Last Admin: 09/08/16 11:49 Dose: 20 mg Bisacodyl (Dulcolax) 5 mg PO DAILY PRN PRN Reason: Constipation Meropenem 1g/NS 100mL IVPB (Meropenem 1g/Ns 100ml Ivpb) 1 gm in 100 mls @ 100 mls/hr IVPB Q8 [facility] PRN Reason: Protocol Stop: 10/02/16 17:44 Last Admin: 09/08/16 05:23 Dose: 100 mls/hr Metoprolol Tartrate (Lopressor) 25 mg PO BID [facility] Last Admin: 09/08/16 11:49 Dose: 25 mg Miconazole Nitrate (Miconazole 2% Cream) 0 ea TOP BID [facility] Last Admin: 09/08/16 11:50 Dose: 1 applic Multivitamins/Minerals (Therapeutic-M Tab) 1 tab PO DAILY [facility] Last Admin: 09/08/16 11:49 Dose: 1 tab Ondansetron HCl (Zofran Inj) 4 mg IVP Q6H PRN PRN Reason: Nausea/Vomiting Pantoprazole Sodium (Protonix Ec Tab) 40 mg PO ACB [facility] Last Admin: 09/08/16 08:26 Dose: 40 mg Pramipexole Dihydrochloride (Mirapex) 0.25 mg PO TID [facility] Last Admin: 09/08/16 11:51 Dose: 0.25 mg Silver Sulfadiazine (Silvadene 1% 20 Gm) 0 ea TOP BID [facility] Last Admin: 09/08/16 11:50 Dose: 1 applic Warfarin Sodium (Coumadin) 5 mg PO 1800 [facility] PRN Reason: Protocol Last Admin: 09/07/16 17:08 Dose: 5 mg Zinc Sulfate (Zinc Sulfate 220 Mg Cap) 220 mg PO DAILY [facility] Last Admin: 09/08/16 11:50 Dose: 220 mg - Labs Labs: 09/01/16 07:00 09/01/16 07:00 PT 25.3 Seconds (9.9-11.8) H 09/06/16 07:54 INR 2.34 (0.93-1.08) H 09/06/16 07:54 APTT 30.7 Seconds (23.7-30.8) 07/30/16 06:30 - Constitutional Appears: Non-toxic, No Acute Distress - Head Exam Head Exam: ATRAUMATIC, NORMOCEPHALIC - Eye Exam Eye Exam: EOMI, PERRL - ENT Exam ENT Exam: Mucous Membranes Moist - Respiratory Exam Respiratory Exam: Clear to Ausculation Bilateral. absent: Rales - Cardiovascular Exam Cardiovascular Exam: REGULAR RHYTHM, +S1, +S2 - GI/Abdominal Exam GI & Abdominal Exam: Soft. absent: Tenderness, Normal Bowel Sounds - Extremities Exam Extremities Exam: absent: Calf Tenderness, Pedal Edema - Neurological Exam Neurological Exam: Alert, Awake - Psychiatric Exam Psychiatric exam: Normal Affect, Normal Mood - Skin Skin Exam: Dry, Warm Assessment and Plan - Assessment and Plan (Free Text) Assessment: Patient is a 51 year old male with no significant past medical history is 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 Patient is medically stable and awaiting final outpatient planning. CRP , sed rate elevated repeated and remain elevated. Epidural space abscess s/p lamenectomy T2-T4 on 07/07/16 - MRI lumbar and thoracic spine - resolving osteomyelitis, discitis. abscess has resolved. - Continue meropenem. - ESR - 60. This is increased from last value - CRP is also trending upward - ID following - patient will need 10 weeks total. This will be week #8. MRI of the spine is recommended. - Tramadol prn for pain hematuria, asymptomatic - Urology has seen patient. - haque to remain - hematuria has now resolved. 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 Boots in place - Baclofen 20 mg PO TID - Continue Mirapex R LE DVT s/p IVC filter placed - INR is therapeutic. Will maintain INR between 2-3 - Continue coumadin. will adjust based on INR - Will check INR and labs every other day. will continue to monitor for bleeding IVC filter in place Neurogenic bowel vs. ileus: resolved. - Full diet but will monitor closely - Dulcolax PO and RC PRN Neurogenic bladder - Haque in place draining light yellow urine multiple stage 2 pressure ulcer on sacrum and buttock improving - air mattress and continue to reposition q2H - continue multivit, zinc, vitamin C PO - Wound care is following Prophylaxis GI ppx- Protonix DVT ppx- coumadin Dispo: patient is pending placement at this time. Patient's family is actively filing patient's forms for this. <Tutu Marc - Last Filed: 09/08/16 16:09> Objective - Vital Signs/Intake and Output Vital Signs (last 24 hours): Temp Pulse Resp BP Pulse Ox 98.5 F 64 20 131/85 97 09/08/16 08:00 09/08/16 11:49 09/08/16 08:00 09/08/16 11:49 09/08/16 08:00 Intake and Output: 09/08/16 09/08/16 06:59 18:59 Intake Total 580 Output Total 400 Balance 180 - Medications Medications: Current Medications Ascorbic Acid (Vitamin C 500 Mg Tab) 500 mg PO DAILY [facility] Last Admin: 09/08/16 11:49 Dose: 500 mg Baclofen (Lioresal) 20 mg PO TID [facility] Last Admin: 09/08/16 11:49 Dose: 20 mg Bisacodyl (Dulcolax) 5 mg PO DAILY PRN PRN Reason: Constipation Meropenem 1g/NS 100mL IVPB (Meropenem 1g/Ns 100ml Ivpb) 1 gm in 100 mls @ 100 mls/hr IVPB Q8 [facility] PRN Reason: Protocol Stop: 10/02/16 17:44 Last Admin: 09/08/16 05:23 Dose: 100 mls/hr Metoprolol Tartrate (Lopressor) 25 mg PO BID [facility] Last Admin: 09/08/16 11:49 Dose: 25 mg Miconazole Nitrate (Miconazole 2% Cream) 0 ea TOP BID [facility] Last Admin: 09/08/16 11:50 Dose: 1 applic Multivitamins/Minerals (Therapeutic-M Tab) 1 tab PO DAILY [facility] Last Admin: 09/08/16 11:49 Dose: 1 tab Ondansetron HCl (Zofran Inj) 4 mg IVP Q6H PRN PRN Reason: Nausea/Vomiting Pantoprazole Sodium (Protonix Ec Tab) 40 mg PO ACB [facility] Last Admin: 09/08/16 08:26 Dose: 40 mg Pramipexole Dihydrochloride (Mirapex) 0.25 mg PO TID [facility] Last Admin: 09/08/16 11:51 Dose: 0.25 mg Silver Sulfadiazine (Silvadene 1% 20 Gm) 0 ea TOP BID [facility] Last Admin: 09/08/16 11:50 Dose: 1 applic Warfarin Sodium (Coumadin) 5 mg PO 1800 [facility] PRN Reason: Protocol Last Admin: 09/07/16 17:08 Dose: 5 mg Zinc Sulfate (Zinc Sulfate 220 Mg Cap) 220 mg PO DAILY [facility] Last Admin: 09/08/16 11:50 Dose: 220 mg - Labs Labs: 09/01/16 07:00 09/01/16 07:00 PT 25.3 Seconds (9.9-11.8) H 09/06/16 07:54 INR 2.34 (0.93-1.08) H 09/06/16 07:54 APTT 30.7 Seconds (23.7-30.8) 07/30/16 06:30 Attending/Attestation - Attestation I have personally seen and examined this patient.: Yes I have fully participated in the care of the patient.: Yes I have reviewed all pertinent clinical information, including history, physical exam and plan: Yes Notes (Text): I have seen and examined the patient at bedside. Agree with the above note with the following additions/ exceptions: This is a 51 year old male with history of substance abuse (snorts cocaine), tobacco, alcohol use who got admitted for evaluation of back pain and found to have epidural abscess T1-T5, osteomyelitis, urinary retention and acute RLE DVT s/p IVC filter on coumadin. He underwent emergent laminectomy and epidural abscess was drained. He remains on meropenem. Repeat ESR is high (60). CRP is 3.8. Need to continue for atleast 10 weeks as per ID. MRI spine Lumbar and thoracic spine showed that epidural abscess has resolved. Will repeat ESR and CRP on 09/10/2016. He has involuntary spasm of Lower extremities which appears to be getting better. Continue baclofen 20 mg po bid and mirapex. He has haque catheter for neurogenic bladder which was changed last week. Hematuria noted. INR has been therapeutic. Discussed with Dr Iqbal. He will be npo past midnight for cystoscopy tomorrow. Continue frequent turning, air mattress and wound care. He had multiple stage 2 ulcer on sacrum and buttocks area. Continue air mattress, frequent repositioning , MVI, zinc and vitamin C. Continue wound care. Awaiting placement. Dr Tutu Marc
[2016-09-09] MEDS: Meropenem 1g/NS 100mL IVPB 1 GM/100 ML PIGGYBACK IVPB SCH ×3 (05:36→22:09)
[2016-09-09] MEDS: Pantoprazole 40 mg EC Tab PO SCH (08:53)
[2016-09-09 12:13] LABS: BASO # 0.02 K/mm3 (0.0-2.0); BASO % 0.3 % (0.0-3.0); EOS # 0.3 (0.0-0.7); EOS % 4.5 % (1.5-5.0); GRAN # 4.69 (1.4-6.5); GRAN % 70.4 % (50.0-68.0); HEMOGLOBIN 12.8 gm/dL (14.0-18.0); LYMPH # 1.2 (1.2-3.4); LYMPH % 18.3 % (22.0-35.0); MEAN CORPUSCULAR HEMOGLOBIN 29.3 pg (25.0-35.0); MEAN CORPUSCULAR HGB CONC 33.7 g/dl (31.0-37.0); MEAN PLATELET VOLUME 12.2 fl (7.0-11.0); MONO # 0.4 (0.1-0.6); MONO % 6.5 % (1.0-6.0); PLATELET COUNT 180 10^3/uL (120.0-450.0); RBC 4.37 10^6/uL (3.5-6.1); RED CELL DISTRIBUTION WIDTH 13.8 % (11.5-14.5); WHITE BLOOD COUNT 6.7 10^3/ul (4.5-11.0)
[2016-09-09 12:19] LABS: ALB/GLOB RATIO 1.1 (1.1-1.8); ALBUMIN 3.7 g/dL (3.0-4.8); ALT/SGPT 57 U/L (7-56); AST/SGOT 23 U/L (15-59); BLOOD UREA NITROGEN 12 mg/dL (7-21); CALCIUM 9.6 mg/dL (8.4-10.5); GFR AFRICAN-AMERICAN > 60; GFR NON-AFRICAN AMERICAN > 60
[2016-09-09 12:29] LABS: INR 2.32 (0.93-1.08); PROTHROMBIN TIME 25.1 Seconds (9.9-11.8)
[2016-09-09] MEDS ORDERED: Iohexol 240 (50 ml) ONE (13:09)
--- NOTE | 2016-09-09 13:32 | CP.PCM.PN ---
Subjective - Date & Time of Evaluation Date of Evaluation: 09/09/16 Time of Evaluation: 11:05 - Subjective Subjective: Comfortable in bed, not in distress, afebrile. Objective - Vital Signs/Intake and Output Vital Signs (last 24 hours): Temp Pulse Resp BP Pulse Ox 98.5 F 57 L 20 131/85 97 09/08/16 08:00 09/08/16 08:00 09/08/16 08:00 09/08/16 08:00 09/08/16 08:00 Intake and Output: 09/08/16 09/08/16 06:59 18:59 Intake Total 580 Output Total 400 Balance 180 - Medications Medications: Current Medications Albuterol/Ipratropium (Duoneb 3 Mg/0.5 Mg (3 Ml) Ud) 3 ml IH [id number] [facility] Last Admin: 09/08/16 07:49 Dose: 3 ml Ascorbic Acid (Vitamin C 500 Mg Tab) 500 mg PO DAILY [facility] Last Admin: 09/07/16 09:16 Dose: 500 mg Baclofen (Lioresal) 20 mg PO TID [facility] Last Admin: 09/07/16 17:08 Dose: 20 mg Bisacodyl (Dulcolax) 5 mg PO DAILY PRN PRN Reason: Constipation Meropenem 1g/NS 100mL IVPB (Meropenem 1g/Ns 100ml Ivpb) 1 gm in 100 mls @ 100 mls/hr IVPB Q8 [facility] PRN Reason: Protocol Stop: 10/02/16 17:44 Last Admin: 09/08/16 05:23 Dose: 100 mls/hr Metoprolol Tartrate (Lopressor) 25 mg PO BID [facility] Last Admin: 09/07/16 17:08 Dose: 25 mg Miconazole Nitrate (Miconazole 2% Cream) 0 ea TOP BID [facility] Last Admin: 09/07/16 17:09 Dose: 1 applic Multivitamins/Minerals (Therapeutic-M Tab) 1 tab PO DAILY [facility] Last Admin: 09/07/16 09:16 Dose: 1 tab Ondansetron HCl (Zofran Inj) 4 mg IVP Q6H PRN PRN Reason: Nausea/Vomiting Pantoprazole Sodium (Protonix Ec Tab) 40 mg PO ACB [facility] Last Admin: 09/08/16 08:26 Dose: 40 mg Pramipexole Dihydrochloride (Mirapex) 0.25 mg PO TID [facility] Last Admin: 09/07/16 17:09 Dose: 0.25 mg Silver Sulfadiazine (Silvadene 1% 20 Gm) 0 ea TOP BID [facility] Last Admin: 09/07/16 17:09 Dose: 1 applic Warfarin Sodium (Coumadin) 5 mg PO 1800 [facility] PRN Reason: Protocol Last Admin: 09/07/16 17:08 Dose: 5 mg Zinc Sulfate (Zinc Sulfate 220 Mg Cap) 220 mg PO DAILY [facility] Last Admin: 09/07/16 09:17 Dose: 220 mg - Labs Labs: 09/01/16 07:00 09/01/16 07:00 PT 25.3 Seconds (9.9-11.8) H 09/06/16 07:54 INR 2.34 (0.93-1.08) H 09/06/16 07:54 APTT 30.7 Seconds (23.7-30.8) 07/30/16 06:30 - Constitutional Appears: Non-toxic, No Acute Distress - Head Exam Head Exam: NORMAL INSPECTION - ENT Exam ENT Exam: Mucous Membranes Moist - Neck Exam Neck Exam: absent: Lymphadenopathy, Meningismus - Respiratory Exam Respiratory Exam: Decreased Breath Sounds - Cardiovascular Exam Cardiovascular Exam: +S1, +S2 - GI/Abdominal Exam GI & Abdominal Exam: Soft. 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
[2016-09-09] MEDS ORDERED: Propofol 10 mg/ml Inj (20 ML) ONE (13:46)
[2016-09-09] MEDS ORDERED: Midazolam 2 MG/2 ML VIAL ONE (13:46)
--- NOTE | 2016-09-09 14:25 | CP.PCM.PN ---
<MichaelGlenn - Last Filed: 09/09/16 14:21> Subjective - Date & Time of Evaluation Date of Evaluation: 09/09/16 Time of Evaluation: 11:22 - Subjective Subjective: Patient seen this am. Dark urine noted in haque bag. NPO overnight. Urology plans for cystoscopy today to evaluate hematuria. Patient denies weakness, dizziness, headache or shortness of breath. Family is still actively pursuing placement options. Objective - Vital Signs/Intake and Output Vital Signs (last 24 hours): Temp Pulse Resp BP Pulse Ox 97.8 F 50 L 18 122/68 96 09/09/16 13:30 09/09/16 13:30 09/09/16 13:30 09/09/16 13:30 09/09/16 13:30 Intake and Output: 09/09/16 09/09/16 06:59 18:59 Intake Total 640 Output Total 600 Balance 40 - Medications Medications: Current Medications Ascorbic Acid (Vitamin C 500 Mg Tab) 500 mg PO DAILY [facility] Last Admin: 09/08/16 11:49 Dose: 500 mg Baclofen (Lioresal) 20 mg PO TID [facility] Last Admin: 09/09/16 09:57 Dose: 20 mg Bisacodyl (Dulcolax) 5 mg PO DAILY PRN PRN Reason: Constipation Meropenem 1g/NS 100mL IVPB (Meropenem 1g/Ns 100ml Ivpb) 1 gm in 100 mls @ 100 mls/hr IVPB Q8 [facility] PRN Reason: Protocol Stop: 10/02/16 17:44 Last Admin: 09/09/16 05:36 Dose: 100 mls/hr Metoprolol Tartrate (Lopressor) 25 mg PO BID [facility] Last Admin: 09/09/16 09:57 Dose: 25 mg Miconazole Nitrate (Miconazole 2% Cream) 0 ea TOP BID [facility] Last Admin: 09/08/16 18:14 Dose: 1 applic Multivitamins/Minerals (Therapeutic-M Tab) 1 tab PO DAILY [facility] Last Admin: 09/08/16 11:49 Dose: 1 tab Ondansetron HCl (Zofran Inj) 4 mg IVP Q6H PRN PRN Reason: Nausea/Vomiting Pantoprazole Sodium (Protonix Ec Tab) 40 mg PO ACB [facility] Last Admin: 09/09/16 08:53 Dose: Not Given Pramipexole Dihydrochloride (Mirapex) 0.25 mg PO TID [facility] Last Admin: 09/09/16 09:57 Dose: 0.25 mg Silver Sulfadiazine (Silvadene 1% 20 Gm) 0 ea TOP BID [facility] Last Admin: 09/08/16 11:50 Dose: 1 applic Warfarin Sodium (Coumadin) 5 mg PO 1800 [facility] PRN Reason: Protocol Last Admin: 09/08/16 17:49 Dose: 5 mg Zinc Sulfate (Zinc Sulfate 220 Mg Cap) 220 mg PO DAILY [facility] Last Admin: 09/08/16 11:50 Dose: 220 mg - Labs Labs: 09/09/16 12:00 09/09/16 12:00 PT 25.1 Seconds (9.9-11.8) H 09/09/16 12:00 INR 2.32 (0.93-1.08) H 09/09/16 12:00 APTT 41.0 Seconds (23.7-30.8) H 09/09/16 12:00 - Constitutional Appears: Non-toxic, No Acute Distress - Head Exam Head Exam: ATRAUMATIC, NORMOCEPHALIC - Eye Exam Eye Exam: EOMI, PERRL - ENT Exam ENT Exam: Mucous Membranes Moist - Neck Exam Neck Exam: Full ROM, Normal Inspection - Respiratory Exam Respiratory Exam: Clear to Ausculation Bilateral, Wheezes. absent: Rales, Rhonchi - Cardiovascular Exam Cardiovascular Exam: REGULAR RHYTHM, +S1, +S2 - GI/Abdominal Exam GI & Abdominal Exam: Soft, Normal Bowel Sounds. absent: Tenderness - Extremities Exam Extremities Exam: Normal Inspection. absent: Full ROM, Pedal Edema - Neurological Exam Neurological Exam: Alert, Awake, Oriented x3 Neuro motor strength exam: Left Lower Extremity: 0, Right Lower Extremity: 0 - Psychiatric Exam Psychiatric exam: Normal Affect, Normal Mood - Skin Skin Exam: Dry, Warm Assessment and Plan - Assessment and Plan (Free Text) Assessment: Patient is a 51 year old male with no significant past medical history is 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 Patient is medically stable and awaiting final outpatient planning. CRP , sed rate elevated repeated and remain elevated. Epidural space abscess s/p lamenectomy T2-T4 on 07/07/16 - MRI lumbar and thoracic spine - resolving osteomyelitis, discitis. abscess has resolved. - Continue meropenem and f/u ESR, CRP. If these levels show a downward consider d/c abx. - ESR - 60. This is increased from last value - CRP is also trending upward - ID following - patient will need 10 weeks total. This will be week #8. MRI of the spine is recommended. - Tramadol prn for pain hematuria, asymptomatic - patient for cystoscopy today - haque to remain - hematuria has now resolved. 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 Boots in place - Baclofen 20 mg PO TID - Continue Mirapex R LE DVT s/p IVC filter placed - INR is therapeutic. Will maintain INR between 2-3 - Continue coumadin. will adjust based on INR - Will check INR and labs every other day. will continue to monitor for bleeding IVC filter in place Neurogenic bowel vs. ileus: resolved. - Full diet but will monitor closely - Dulcolax PO and RC PRN Neurogenic bladder - Haque in place draining light yellow urine multiple stage 2 pressure ulcer on sacrum and buttock improving - air mattress and continue to reposition q2H - continue multivit, zinc, vitamin C PO - Wound care is following Prophylaxis GI ppx- Protonix DVT ppx- coumadin Dispo: patient is pending placement at this time. Patient's family is actively filing patient's forms for this. <Edgardo GUTIERREZ,Jarrod - Last Filed: 09/09/16 15:45> Objective - Vital Signs/Intake and Output Vital Signs (last 24 hours): Temp Pulse Resp BP Pulse Ox 97.7 F 53 L 18 127/72 97 09/09/16 15:35 09/09/16 15:35 09/09/16 15:35 09/09/16 15:35 09/09/16 15:35 Intake and Output: 09/09/16 09/09/16 06:59 18:59 Intake Total 640 Output Total 600 Balance 40 - Medications Medications: Current Medications Ascorbic Acid (Vitamin C 500 Mg Tab) 500 mg PO DAILY [facility] Last Admin: 09/08/16 11:49 Dose: 500 mg Baclofen (Lioresal) 20 mg PO TID [facility] Last Admin: 06/13/17 09:57 Dose: 20 mg Bisacodyl (Dulcolax) 5 mg PO DAILY PRN PRN Reason: Constipation Meropenem 1g/NS 100mL IVPB (Meropenem 1g/Ns 100ml Ivpb) 1 gm in 100 mls @ 100 mls/hr IVPB Q8 [facility] PRN Reason: Protocol Stop: 10/02/16 17:44 Last Admin: 09/09/16 05:36 Dose: 100 mls/hr Lactated Ringer's (Lactated Ringer's) 1,000 mls @ 75 mls/hr IV .[id number] [facility] Stop: 09/09/16 16:39 Metoprolol Tartrate (Lopressor) 25 mg PO BID [facility] Last Admin: 09/09/16 09:57 Dose: 25 mg Miconazole Nitrate (Miconazole 2% Cream) 0 ea TOP BID [facility] Last Admin: 09/08/16 18:14 Dose: 1 applic Multivitamins/Minerals (Therapeutic-M Tab) 1 tab PO DAILY [facility] Last Admin: 09/08/16 11:49 Dose: 1 tab Ondansetron HCl (Zofran Inj) 4 mg IVP Q6H PRN PRN Reason: Nausea/Vomiting Pantoprazole Sodium (Protonix Ec Tab) 40 mg PO ACB [facility] Last Admin: 09/09/16 08:53 Dose: Not Given Pramipexole Dihydrochloride (Mirapex) 0.25 mg PO TID [facility] Last Admin: 09/09/16 09:57 Dose: 0.25 mg Silver Sulfadiazine (Silvadene 1% 20 Gm) 0 ea TOP BID [facility] Last Admin: 09/08/16 11:50 Dose: 1 applic Warfarin Sodium (Coumadin) 5 mg PO 1800 [facility] PRN Reason: Protocol Last Admin: 09/08/16 17:49 Dose: 5 mg Zinc Sulfate (Zinc Sulfate 220 Mg Cap) 220 mg PO DAILY [facility] Last Admin: 09/08/16 11:50 Dose: 220 mg - Labs Labs: 09/09/16 12:00 09/09/16 12:00 PT 25.1 Seconds (9.9-11.8) H 09/09/16 12:00 INR 2.32 (0.93-1.08) H 09/09/16 12:00 APTT 41.0 Seconds (23.7-30.8) H 09/09/16 12:00 Attending/Attestation - Attestation I have personally seen and examined this patient.: Yes I have fully participated in the care of the patient.: Yes I have reviewed all pertinent clinical information, including history, physical exam and plan: Yes Notes (Text): 09/09/16 15:42 Patient was seen and examined with medical care manager .Agreed with resident assessment and plan. 51 year old male with history of substance abuse (snorts cocaine), tobacco, alcohol abuse was admitted for evaluation of back pain and found to have epidural abscess T1-T5, osteomyelitis, urinary retention and acute RLE DVT s/p IVC filter on coumadin. He underwent emergent laminectomy and epidural abscess was drained. He is on meropenem as per ID. Repeat ESR is high (60). CRP is 3.8. Need to continue for atleast 10 weeks as per ID. MRI spine Lumbar and thoracic spine showed that epidural abscess has resolved.Patient hemoglobin is stable.Hematuria has resolved, for cystoscopy today, will follow up results. Continue frequent turning, air mattress and wound care. He had multiple stage 2 ulcer on sacrum and buttocks area. Continue air mattress, frequent repositioning , MVI, zinc and vitamin C. Continue wound care. Patient is awaiting placement. Management plan was discussed in detail with patient Education was provided.
[2016-09-09] MEDS ORDERED: Lactated Ringer's 1,000 ML IV SCH (14:38)
[2016-09-09] MEDS: Miconazole 2% Cream(30 gm) TOP SCH ×2 (16:12→17:02)
[2016-09-09] MEDS: Silver Sulfadiazine 1% Cream (20 gm) TOP SCH ×2 (16:13→17:03)
[2016-09-09] MEDS: Multivitamin With Minerals Tab PO SCH (17:02)
[2016-09-10] MEDS: Meropenem 1g/NS 100mL IVPB 1 GM/100 ML PIGGYBACK IVPB SCH ×3 (05:50→21:08)
[2016-09-10 07:39] LABS: INR 2.29 (0.93-1.08); PROTHROMBIN TIME 24.7 Seconds (9.9-11.8)
[2016-09-10 07:42] LABS: HEMOGLOBIN 13.2 gm/dL (14.0-18.0); MEAN CELL VOLUME 86.6 fL (80.0-105.0); MEAN CORPUSCULAR HGB CONC 33.5 g/dl (31.0-37.0); MEAN PLATELET VOLUME 11.9 fl (7.0-11.0); RBC 4.55 10^6/uL (3.5-6.1); RED CELL DISTRIBUTION WIDTH 13.8 % (11.5-14.5); WHITE BLOOD COUNT 6.7 10^3/ul (4.5-11.0)
[2016-09-10] MEDS: Pantoprazole 40 mg EC Tab PO SCH (07:58)
[2016-09-10] MEDS: Miconazole 2% Cream(30 gm) TOP SCH ×2 (09:36→17:32)
[2016-09-10] MEDS: Multivitamin With Minerals Tab PO SCH (09:36)
[2016-09-10] MEDS: Silver Sulfadiazine 1% Cream (20 gm) TOP SCH ×2 (09:37→17:32)
--- NOTE | 2016-09-10 14:16 | CP.PCM.PN ---
<Glenn Rodriguez - Last Filed: 09/10/16 14:10> Subjective - Date & Time of Evaluation Date of Evaluation: 09/10/16 Time of Evaluation: 11:10 - Subjective Subjective: Patient seen at bedside. He is s/p cystoscopy with bladder irrigation POD 1. Haque with clear straw colored urine. States he now has feeling to medial tibial area. He denies fever, chills, abdominal pain. Family is pursuing placement. Objective - Vital Signs/Intake and Output Vital Signs (last 24 hours): Temp Pulse Resp BP Pulse Ox 97.5 F L 57 L 20 112/71 96 09/10/16 08:00 09/10/16 08:00 09/10/16 08:00 09/10/16 08:00 09/10/16 08:00 Intake and Output: 09/10/16 09/10/16 06:59 18:59 Intake Total 960 260 Output Total 1110 Balance -150 260 - Medications Medications: Current Medications Ascorbic Acid (Vitamin C 500 Mg Tab) 500 mg PO DAILY [facility] Last Admin: 09/10/16 09:36 Dose: 500 mg Baclofen (Lioresal) 20 mg PO TID [facility] Last Admin: 09/10/16 13:00 Dose: 20 mg Bisacodyl (Dulcolax) 5 mg PO DAILY PRN PRN Reason: Constipation Meropenem 1g/NS 100mL IVPB (Meropenem 1g/Ns 100ml Ivpb) 1 gm in 100 mls @ 100 mls/hr IVPB Q8 [facility] PRN Reason: Protocol Stop: 10/02/16 17:44 Last Admin: 09/10/16 13:00 Dose: 100 mls/hr Metoprolol Tartrate (Lopressor) 25 mg PO BID [facility] Last Admin: 09/10/16 09:36 Dose: 25 mg Miconazole Nitrate (Miconazole 2% Cream) 0 ea TOP BID [facility] Last Admin: 09/10/16 09:36 Dose: 1 applic Multivitamins/Minerals (Therapeutic-M Tab) 1 tab PO DAILY [facility] Last Admin: 09/10/16 09:36 Dose: 1 tab Ondansetron HCl (Zofran Inj) 4 mg IVP Q6H PRN PRN Reason: Nausea/Vomiting Pantoprazole Sodium (Protonix Ec Tab) 40 mg PO ACB [facility] Last Admin: 09/10/16 07:58 Dose: 40 mg Pramipexole Dihydrochloride (Mirapex) 0.25 mg PO TID [facility] Last Admin: 09/10/16 13:00 Dose: 0.25 mg Silver Sulfadiazine (Silvadene 1% 20 Gm) 0 ea TOP BID [facility] Last Admin: 09/10/16 09:37 Dose: 1 applic Warfarin Sodium (Coumadin) 5 mg PO 1800 [facility] PRN Reason: Protocol Last Admin: 09/09/16 17:01 Dose: 5 mg Zinc Sulfate (Zinc Sulfate 220 Mg Cap) 220 mg PO DAILY [facility] Last Admin: 09/10/16 09:36 Dose: 220 mg - Labs Labs: 09/10/16 07:00 09/09/16 12:00 PT 24.7 Seconds (9.9-11.8) H 09/10/16 07:00 INR 2.29 (0.93-1.08) H 09/10/16 07:00 APTT 41.0 Seconds (23.7-30.8) H 09/09/16 12:00 - Constitutional Appears: Non-toxic, No Acute Distress - Head Exam Head Exam: ATRAUMATIC, NORMOCEPHALIC - Eye Exam Eye Exam: EOMI, PERRL - ENT Exam ENT Exam: Mucous Membranes Moist - Respiratory Exam Respiratory Exam: Clear to Ausculation Bilateral. absent: Rales, Rhonchi, Wheezes - Cardiovascular Exam Cardiovascular Exam: REGULAR RHYTHM, +S1, +S2 - GI/Abdominal Exam GI & Abdominal Exam: Soft. absent: Distended, Tenderness - Extremities Exam Extremities Exam: absent: Calf Tenderness, Pedal Edema - Neurological Exam Neurological Exam: Alert, Awake, Oriented x3 Neuro motor strength exam: Left Lower Extremity: 0, Right Lower Extremity: 0 - Psychiatric Exam Psychiatric exam: Normal Affect, Normal Mood - Skin Skin Exam: Dry, Warm Assessment and Plan - Assessment and Plan (Free Text) Assessment: Patient is a 51 year old male with no significant past medical history is 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 Patient is medically stable and awaiting final outpatient planning. ESR trend 34 - trending down. CRP5.93 trending up. 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 CRP trending up - MRI lumbar and thoracic spine - resolving osteomyelitis, discitis. abscess has resolved. - Continue meropenem for now - will follow ID recommendations for - ID following - patient will need 10 weeks total. This will be week #8. MRI of the spine is recommended. - Tramadol prn for pain hematuria, asymptomatic - clear straw colored urine today - cystocopy POD 1 - haque to remain in place - hematuria has now resolved. 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 Boots in place - Baclofen 20 mg PO TID - Continue Mirapex R LE DVT s/p IVC filter placed - INR is therapeutic. Will maintain INR between 2-3 - Continue coumadin. will adjust based on INR - Will check INR and labs every other day. will continue to monitor for bleeding IVC filter in place Neurogenic bowel vs. ileus: resolved. - Full diet but will monitor closely - Dulcolax PO and RC PRN Neurogenic bladder - Haque in place draining light yellow urine multiple stage 2 pressure ulcer on sacrum and buttock improving - air mattress and continue to reposition q2H - continue multivit, zinc, vitamin C PO - Wound care is following Prophylaxis GI ppx- Protonix DVT ppx- coumadin Dispo: patient is pending placement at this time. Patient's family is actively filing patient's forms for this. <Edgardo GUTIERREZ,Gigilannonsergio - Last Filed: 09/11/16 16:41> Objective - Vital Signs/Intake and Output Vital Signs (last 24 hours): Temp Pulse Resp BP Pulse Ox 98.1 F 56 L 20 119/68 95 09/11/16 08:52 09/11/16 08:52 09/11/16 08:52 09/11/16 08:52 09/11/16 08:52 Intake and Output: 09/11/16 09/11/16 06:59 18:59 Intake Total 1240 Output Total 1400 Balance -160 - Medications Medications: Current Medications Ascorbic Acid (Vitamin C 500 Mg Tab) 500 mg PO DAILY [facility] Last Admin: 09/11/16 09:30 Dose: 500 mg Baclofen (Lioresal) 20 mg PO TID [facility] Last Admin: 09/11/16 13:09 Dose: 20 mg Bisacodyl (Dulcolax) 5 mg PO DAILY PRN PRN Reason: Constipation Meropenem 1g/NS 100mL IVPB (Meropenem 1g/Ns 100ml Ivpb) 1 gm in 100 mls @ 100 mls/hr IVPB Q8 [facility] PRN Reason: Protocol Stop: 10/02/16 17:44 Last Admin: 09/11/16 13:10 Dose: 100 mls/hr Metoprolol Tartrate (Lopressor) 25 mg PO BID [facility] Last Admin: 09/11/16 09:29 Dose: 25 mg Miconazole Nitrate (Miconazole 2% Cream) 0 ea TOP BID [facility] Last Admin: 09/11/16 09:30 Dose: 1 applic Multivitamins/Minerals (Therapeutic-M Tab) 1 tab PO DAILY [facility] Last Admin: 09/11/16 09:29 Dose: 1 tab Ondansetron HCl (Zofran Inj) 4 mg IVP Q6H PRN PRN Reason: Nausea/Vomiting Pantoprazole Sodium (Protonix Ec Tab) 40 mg PO ACB [facility] Last Admin: 09/11/16 08:09 Dose: 40 mg Pramipexole Dihydrochloride (Mirapex) 0.25 mg PO TID [facility] Last Admin: 09/11/16 13:09 Dose: 0.25 mg Silver Sulfadiazine (Silvadene 1% 20 Gm) 0 ea TOP BID [facility] Last Admin: 09/11/16 09:30 Dose: 1 applic Warfarin Sodium (Coumadin) 5 mg PO 1800 [facility] PRN Reason: Protocol Last Admin: 09/10/16 17:31 Dose: 5 mg Zinc Sulfate (Zinc Sulfate 220 Mg Cap) 220 mg PO DAILY [facility] Last Admin: 09/11/16 09:30 Dose: 220 mg - Labs Labs: 09/10/16 07:00 09/09/16 12:00 PT 24.7 Seconds (9.9-11.8) H 09/10/16 07:00 INR 2.29 (0.93-1.08) H 09/10/16 07:00 APTT 41.0 Seconds (23.7-30.8) H 09/09/16 12:00 Attending/Attestation - Attestation I have personally seen and examined this patient.: Yes I have fully participated in the care of the patient.: Yes I have reviewed all pertinent clinical information, including history, physical exam and plan: Yes Notes (Text): 09/11/16 16:39 Patient was seen and examined with certified medical records coder .Agreed with resident assessment and plan. 51 year old male with history of substance abuse (snorts cocaine), tobacco, alcohol abuse was admitted for evaluation of back pain and found to have epidural abscess T1-T5, osteomyelitis, urinary retention and acute RLE DVT s/p IVC filter on coumadin. He underwent emergent laminectomy and epidural abscess was drained. He is on meropenem as per ID. MRI spine Lumbar and thoracic spine showed that epidural abscess has resolved.Patient hemoglobin is stable.Hematuria has resolved,hemoglobin is stable despite oral anticoagulation. Continue frequent turning, air mattress and wound care. He had multiple stage 2 ulcer on sacrum and buttocks area. Patient is awaiting placement. Management plan was discussed in detail with patient Education was provided.
--- NOTE | 2016-09-10 19:05 | CP.PCM.PN ---
Subjective - Date & Time of Evaluation Date of Evaluation: 09/10/16 Time of Evaluation: 11:55 - Subjective Subjective: Comfortable, afebrile, had cystoscopy done yesterday. Objective - Vital Signs/Intake and Output Vital Signs (last 24 hours): Temp Pulse Resp BP Pulse Ox 97.5 F L 57 L 20 112/71 96 09/10/16 08:00 09/10/16 08:00 09/10/16 08:00 09/10/16 08:00 09/10/16 08:00 Intake and Output: 09/10/16 09/10/16 06:59 18:59 Intake Total 960 Output Total 1110 Balance -150 - Medications Medications: Current Medications Ascorbic Acid (Vitamin C 500 Mg Tab) 500 mg PO DAILY [facility] Last Admin: 09/10/16 09:36 Dose: 500 mg Baclofen (Lioresal) 20 mg PO TID [facility] Last Admin: 09/10/16 09:36 Dose: 20 mg Bisacodyl (Dulcolax) 5 mg PO DAILY PRN PRN Reason: Constipation Meropenem 1g/NS 100mL IVPB (Meropenem 1g/Ns 100ml Ivpb) 1 gm in 100 mls @ 100 mls/hr IVPB Q8 [facility] PRN Reason: Protocol Stop: 10/02/16 17:44 Last Admin: 09/10/16 05:50 Dose: 100 mls/hr Metoprolol Tartrate (Lopressor) 25 mg PO BID [facility] Last Admin: 09/10/16 09:36 Dose: 25 mg Miconazole Nitrate (Miconazole 2% Cream) 0 ea TOP BID [facility] Last Admin: 09/10/16 09:36 Dose: 1 applic Multivitamins/Minerals (Therapeutic-M Tab) 1 tab PO DAILY [facility] Last Admin: 09/10/16 09:36 Dose: 1 tab Ondansetron HCl (Zofran Inj) 4 mg IVP Q6H PRN PRN Reason: Nausea/Vomiting Pantoprazole Sodium (Protonix Ec Tab) 40 mg PO ACB [facility] Last Admin: 09/10/16 07:58 Dose: 40 mg Pramipexole Dihydrochloride (Mirapex) 0.25 mg PO TID [facility] Last Admin: 09/10/16 09:36 Dose: 0.25 mg Silver Sulfadiazine (Silvadene 1% 20 Gm) 0 ea TOP BID [facility] Last Admin: 09/10/16 09:37 Dose: 1 applic Warfarin Sodium (Coumadin) 5 mg PO 1800 [facility] PRN Reason: Protocol Last Admin: 09/09/16 17:01 Dose: 5 mg Zinc Sulfate (Zinc Sulfate 220 Mg Cap) 220 mg PO DAILY [facility] Last Admin: 09/10/16 09:36 Dose: 220 mg - Labs Labs: 09/10/16 07:00 09/09/16 12:00 PT 24.7 Seconds (9.9-11.8) H 09/10/16 07:00 INR 2.29 (0.93-1.08) H 09/10/16 07:00 APTT 41.0 Seconds (23.7-30.8) H 09/09/16 12:00 - Constitutional Appears: Non-toxic, No Acute Distress - Head Exam Head Exam: NORMAL INSPECTION - Neck Exam Neck Exam: absent: Lymphadenopathy, Meningismus - Respiratory Exam Respiratory Exam: Decreased Breath Sounds - Cardiovascular Exam Cardiovascular Exam: +S1, +S2 - GI/Abdominal Exam GI & Abdominal Exam: Soft. 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 with associated cord compression and lower extremity paralysis and neurogenic bladder S/P neurosurgery for abscess drainage and laminectomy POD #60 Possible drug reaction to Rocephin Partial small bowel obstruction, clinically improved and resolved significant smoking history alcohol abuse obesity with BMI 40 Plan continue Merrem (now on more than 8 weeks of therapy) because the CRP is still elevated; will follow up weekly ESR, CRP; repeat MRI shows improvement in marrow edema in the T3-T4 area but not resolution Will continue to monitor clinically
[2016-09-11] MEDS: Meropenem 1g/NS 100mL IVPB 1 GM/100 ML PIGGYBACK IVPB SCH ×3 (05:47→21:26)
[2016-09-11] MEDS: Pantoprazole 40 mg EC Tab PO SCH (08:09)
[2016-09-11] MEDS: Multivitamin With Minerals Tab PO SCH (09:29)
[2016-09-11] MEDS: Silver Sulfadiazine 1% Cream (20 gm) TOP SCH ×2 (09:30→17:34)
[2016-09-11] MEDS: Miconazole 2% Cream(30 gm) TOP SCH ×2 (09:30→17:33)
--- NOTE | 2016-09-11 12:50 | CP.PCM.PN ---
<Glenn Rodriguez - Last Filed: 09/11/16 12:45> Subjective - Date & Time of Evaluation Date of Evaluation: 09/11/16 Time of Evaluation: 12:46 - Subjective Subjective: Patient seen and examined. He is participating with physical therapy. States he has some sensation to the medial aspects of b/l distal extremities. Urine is clear. He is awaiting placement. Continued on IV abx. Objective - Vital Signs/Intake and Output Vital Signs (last 24 hours): Temp Pulse Resp BP Pulse Ox 98.1 F 56 L 20 119/68 95 09/11/16 08:52 09/11/16 08:52 09/11/16 08:52 09/11/16 08:52 09/11/16 08:52 Intake and Output: 09/11/16 09/11/16 06:59 18:59 Intake Total 1240 Output Total 1400 Balance -160 - Medications Medications: Current Medications Ascorbic Acid (Vitamin C 500 Mg Tab) 500 mg PO DAILY [facility] Last Admin: 09/11/16 09:30 Dose: 500 mg Baclofen (Lioresal) 20 mg PO TID [facility] Last Admin: 09/11/16 09:30 Dose: 20 mg Bisacodyl (Dulcolax) 5 mg PO DAILY PRN PRN Reason: Constipation Meropenem 1g/NS 100mL IVPB (Meropenem 1g/Ns 100ml Ivpb) 1 gm in 100 mls @ 100 mls/hr IVPB Q8 [facility] PRN Reason: Protocol Stop: 10/02/16 17:44 Last Admin: 09/11/16 05:47 Dose: 100 mls/hr Metoprolol Tartrate (Lopressor) 25 mg PO BID [facility] Last Admin: 09/11/16 09:29 Dose: 25 mg Miconazole Nitrate (Miconazole 2% Cream) 0 ea TOP BID [facility] Last Admin: 09/11/16 09:30 Dose: 1 applic Multivitamins/Minerals (Therapeutic-M Tab) 1 tab PO DAILY [facility] Last Admin: 09/11/16 09:29 Dose: 1 tab Ondansetron HCl (Zofran Inj) 4 mg IVP Q6H PRN PRN Reason: Nausea/Vomiting Pantoprazole Sodium (Protonix Ec Tab) 40 mg PO ACB [facility] Last Admin: 09/11/16 08:09 Dose: 40 mg Pramipexole Dihydrochloride (Mirapex) 0.25 mg PO TID [facility] Last Admin: 09/11/16 09:30 Dose: 0.25 mg Silver Sulfadiazine (Silvadene 1% 20 Gm) 0 ea TOP BID [facility] Last Admin: 09/11/16 09:30 Dose: 1 applic Warfarin Sodium (Coumadin) 5 mg PO 1800 [facility] PRN Reason: Protocol Last Admin: 09/10/16 17:31 Dose: 5 mg Zinc Sulfate (Zinc Sulfate 220 Mg Cap) 220 mg PO DAILY [facility] Last Admin: 09/11/16 09:30 Dose: 220 mg - Labs Labs: 09/10/16 07:00 09/09/16 12:00 PT 24.7 Seconds (9.9-11.8) H 09/10/16 07:00 INR 2.29 (0.93-1.08) H 09/10/16 07:00 APTT 41.0 Seconds (23.7-30.8) H 09/09/16 12:00 - Constitutional Appears: Non-toxic, No Acute Distress - Head Exam Head Exam: ATRAUMATIC, NORMOCEPHALIC - Eye Exam Eye Exam: EOMI, PERRL - ENT Exam ENT Exam: Mucous Membranes Moist - Neck Exam Neck Exam: Full ROM, Normal Inspection - Respiratory Exam Respiratory Exam: Clear to Ausculation Bilateral. absent: Rales, Rhonchi, Wheezes - Cardiovascular Exam Cardiovascular Exam: REGULAR RHYTHM, +S1, +S2 - GI/Abdominal Exam GI & Abdominal Exam: Soft, Normal Bowel Sounds. 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 Patient is medically stable and awaiting final outpatient planning. ESR trend 34 - trending down. CRP5.93 trending up. 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 CRP trending up - MRI lumbar and thoracic spine - resolving osteomyelitis, discitis. abscess has resolved. - Continue meropenem for now - will follow ID recommendations on utimate duration of theapy. - ID following - Tramadol prn for pain hematuria, asymptomatic - clear straw colored urine today - cystocopy POD 1 - haque to remain in place - hematuria has now resolved. 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 Boots in place - Baclofen 20 mg PO TID - Continue Mirapex R LE DVT s/p IVC filter placed - INR is therapeutic. Will maintain INR between 2-3 - Continue coumadin. will adjust based on INR - Will check INR and labs every other day. will continue to monitor for bleeding IVC filter in place Neurogenic bowel vs. ileus: resolved. - Full diet but will monitor closely - Dulcolax PO and RC PRN Neurogenic bladder - Haque in place draining light yellow urine multiple stage 2 pressure ulcer on sacrum and buttock improving - air mattress and continue to reposition q2H - continue multivit, zinc, vitamin C PO - Wound care is following Prophylaxis GI ppx- Protonix DVT ppx- coumadin Dispo: patient is pending placement at this time. Patient's family is actively filing patient's forms for this. <Edgardo GUTIERREZ,Gigibudsergio - Last Filed: 10/11/16 10:50> Objective - Vital Signs/Intake and Output Vital Signs (last 24 hours): Temp Pulse Resp BP Pulse Ox 97.6 F 66 19 126/80 98 10/09/16 07:59 10/09/16 10:47 10/09/16 07:59 10/09/16 10:47 10/09/16 07:59 - Labs Labs: 10/06/16 06:30 10/05/16 05:05 PT 14.8 Seconds (9.9-11.8) H 10/09/16 05:55 INR 1.37 (0.93-1.08) H 10/09/16 05:55 APTT 41.0 Seconds (23.7-30.8) H 09/09/16 12:00 Attending/Attestation - Attestation I have personally seen and examined this patient.: Yes I have fully participated in the care of the patient.: Yes I have reviewed all pertinent clinical information, including history, physical exam and plan: Yes Notes (Text): 10/11/16 10:50 Patient was seen and examined with medical genetics director .Agreed with resident assessment and plan. Management plan was discussed in detail with patient Education was provided.
--- NOTE | 2016-09-11 16:52 | PN ---
DATE: 09/11/2016 HISTORY OF PRESENT ILLNESS: The patient is in bed in no acute distress, nontoxic. PHYSICAL EXAMINATION: VITAL SIGNS: Temperature is 98, blood pressure is 119/60, respiratory rate of 16. HEENT: Unremarkable. NECK: Supple. LUNGS: Have decreased breath sounds. HEART: Normal S1, S2. ABDOMEN: Soft, nontender. LABORATORY DATA: Reveals a white count of 6.7, hemoglobin of 13. Urinalysis is noted. ASSESSMENT AND PLAN: A 51-year-old man with epidural abscess secondary to Streptococcus pneumoniae, associated with a cord compression, lower extremity paralysis, neurogenic bladder, status post neuros urgery, abscess drainage, and laminectomy. POST-PROCEDURE DAY #61 OF POSSIBLE DRUG REACTION TO CEFTR IAXONE. Currently on meropenem. Will continue to follow the CBC, SMA-18, sed rate, C-reactive prote in. The MRI shows improvement in T3 and T4, but not resolution. We do not expect a complete resolut ion of the MRI. Of the parameters to follow, most indicative of disease activity is probably C-react anatoly protein, and will continue to follow that. As of yesterday it was 6.49. Colt Coronel MD cc: [phone] TT: 09/11/2016 16:51:59 Confirmation # [id number] Dictation # [id number] desiree
[2016-09-12] MEDS: Meropenem 1g/NS 100mL IVPB 1 GM/100 ML PIGGYBACK IVPB SCH ×3 (05:15→21:00)
[2016-09-12 08:16] LABS: INR 2.42 (0.93-1.08); PROTHROMBIN TIME 26.1 Seconds (9.9-11.8)
--- NOTE | 2016-09-12 08:59 | CP.PCM.PN ---
<Glenn Rodriguez - Last Filed: 09/12/16 15:57> Subjective - Date & Time of Evaluation Date of Evaluation: 09/12/16 Time of Evaluation: 08:49 - Subjective Subjective: Patient seen and examined. He is comfortable. Notes b/l leg spasms. He is continued on antibiotics. Afebrile. No acute findings. Objective - Vital Signs/Intake and Output Vital Signs (last 24 hours): Temp Pulse Resp BP Pulse Ox 97.6 F 54 L 20 124/85 97 09/12/16 07:30 09/12/16 07:30 09/12/16 07:30 09/12/16 07:30 09/12/16 07:30 Intake and Output: 09/12/16 09/12/16 06:59 18:59 Intake Total 1020 Output Total 2000 Balance -980 - Medications Medications: Current Medications Ascorbic Acid (Vitamin C 500 Mg Tab) 500 mg PO DAILY [facility] Last Admin: 09/11/16 09:30 Dose: 500 mg Baclofen (Lioresal) 20 mg PO TID [facility] Last Admin: 09/11/16 17:33 Dose: 20 mg Bisacodyl (Dulcolax) 5 mg PO DAILY PRN PRN Reason: Constipation Meropenem 1g/NS 100mL IVPB (Meropenem 1g/Ns 100ml Ivpb) 1 gm in 100 mls @ 100 mls/hr IVPB Q8 [facility] PRN Reason: Protocol Stop: 10/02/16 17:44 Last Admin: 09/12/16 05:15 Dose: 100 mls/hr Metoprolol Tartrate (Lopressor) 25 mg PO BID [facility] Last Admin: 09/11/16 17:33 Dose: 25 mg Miconazole Nitrate (Miconazole 2% Cream) 0 ea TOP BID [facility] Last Admin: 09/11/16 17:33 Dose: 1 applic Multivitamins/Minerals (Therapeutic-M Tab) 1 tab PO DAILY [facility] Last Admin: 09/11/16 09:29 Dose: 1 tab Ondansetron HCl (Zofran Inj) 4 mg IVP Q6H PRN PRN Reason: Nausea/Vomiting Pantoprazole Sodium (Protonix Ec Tab) 40 mg PO ACB [facility] Last Admin: 09/11/16 08:09 Dose: 40 mg Pramipexole Dihydrochloride (Mirapex) 0.25 mg PO TID [facility] Last Admin: 09/11/16 17:33 Dose: 0.25 mg Silver Sulfadiazine (Silvadene 1% 20 Gm) 0 ea TOP BID [facility] Last Admin: 09/11/16 17:34 Dose: 1 applic Warfarin Sodium (Coumadin) 5 mg PO 1800 [facility] PRN Reason: Protocol Last Admin: 09/11/16 17:33 Dose: 5 mg Zinc Sulfate (Zinc Sulfate 220 Mg Cap) 220 mg PO DAILY [facility] Last Admin: 09/11/16 09:30 Dose: 220 mg - Labs Labs: 09/10/16 07:00 09/09/16 12:00 PT 26.1 Seconds (9.9-11.8) H 09/12/16 07:30 INR 2.42 (0.93-1.08) H 09/12/16 07:30 APTT 41.0 Seconds (23.7-30.8) H 09/09/16 12:00 - Constitutional Appears: Non-toxic, No Acute Distress - Head Exam Head Exam: ATRAUMATIC, NORMOCEPHALIC - Eye Exam Eye Exam: EOMI, Normal appearance - ENT Exam ENT Exam: Mucous Membranes Moist - Respiratory Exam Respiratory Exam: Clear to Ausculation Bilateral. absent: Rales, Rhonchi, Wheezes - Cardiovascular Exam Cardiovascular Exam: REGULAR RHYTHM, +S1, +S2 - GI/Abdominal Exam GI & Abdominal Exam: Soft, Normal Bowel Sounds. absent: Tenderness - Extremities Exam Extremities Exam: Normal Inspection. 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 Patient is medically stable and awaiting final outpatient planning. ESR trend 34 - trending down. CRP trending up. Continue with abx. Following ID recommendations. 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 CRP trending up - MRI lumbar and thoracic spine - resolving osteomyelitis, discitis. abscess has resolved. - Continue meropenem for now - will follow ID recommendations on utimate duration of theapy. - ID following - Tramadol prn for pain hematuria, asymptomatic - clear straw colored urine today - cystocopy POD 1 - haque to remain in place - hematuria has now resolved. 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 Boots in place - Baclofen 20 mg PO TID - Continue Mirapex R LE DVT s/p IVC filter placed - INR is therapeutic. Will maintain INR between 2-3 - Continue coumadin. will adjust based on INR - Will check INR and labs every other day. will continue to monitor for bleeding IVC filter in place Neurogenic bowel vs. ileus: resolved. - Full diet but will monitor closely - Dulcolax PO and RC PRN Neurogenic bladder - Haque in place draining light yellow urine multiple stage 2 pressure ulcer on sacrum and buttock improving - air mattress and continue to reposition q2H - continue multivit, zinc, vitamin C PO - Wound care is following Prophylaxis GI ppx- Protonix DVT ppx- coumadin Dispo: patient is pending placement at this time. Patient's family is actively filing patient's forms for this. <Edgardo GUTIERREZ,[employer] - Last Filed: 09/12/16 17:40> Objective - Vital Signs/Intake and Output Vital Signs (last 24 hours): Temp Pulse Resp BP Pulse Ox 97.6 F 51 L 16 109/70 99 09/12/16 16:00 09/12/16 16:00 09/12/16 16:00 09/12/16 16:00 09/12/16 16:00 Intake and Output: 09/12/16 09/12/16 06:59 18:59 Intake Total 1020 840 Output Total 2000 1000 Balance -980 -160 - Medications Medications: Current Medications Ascorbic Acid (Vitamin C 500 Mg Tab) 500 mg PO DAILY [facility] Last Admin: 09/12/16 09:29 Dose: 500 mg Baclofen (Lioresal) 20 mg PO TID [facility] Last Admin: 09/12/16 14:29 Dose: 20 mg Bisacodyl (Dulcolax) 5 mg PO DAILY PRN PRN Reason: Constipation Meropenem 1g/NS 100mL IVPB (Meropenem 1g/Ns 100ml Ivpb) 1 gm in 100 mls @ 100 mls/hr IVPB Q8 [facility] PRN Reason: Protocol Stop: 10/02/16 17:44 Last Admin: 09/12/16 14:28 Dose: 100 mls/hr Metoprolol Tartrate (Lopressor) 25 mg PO BID [facility] Last Admin: 09/12/16 09:26 Dose: 25 mg Miconazole Nitrate (Miconazole 2% Cream) 0 ea TOP BID [facility] Last Admin: 09/12/16 09:31 Dose: 1 applic Multivitamins/Minerals (Therapeutic-M Tab) 1 tab PO DAILY [facility] Last Admin: 09/12/16 09:29 Dose: 1 tab Ondansetron HCl (Zofran Inj) 4 mg IVP Q6H PRN PRN Reason: Nausea/Vomiting Pantoprazole Sodium (Protonix Ec Tab) 40 mg PO ACB [facility] Last Admin: 09/12/16 09:26 Dose: 40 mg Pramipexole Dihydrochloride (Mirapex) 0.25 mg PO TID [facility] Last Admin: 09/12/16 14:29 Dose: 0.25 mg Silver Sulfadiazine (Silvadene 1% 20 Gm) 0 ea TOP BID [facility] Last Admin: 09/12/16 09:30 Dose: 1 applic Warfarin Sodium (Coumadin) 5 mg PO 1800 [facility] PRN Reason: Protocol Last Admin: 09/11/16 17:33 Dose: 5 mg Zinc Sulfate (Zinc Sulfate 220 Mg Cap) 220 mg PO DAILY [facility] Last Admin: 09/12/16 09:26 Dose: 220 mg - Labs Labs: 09/10/16 07:00 09/09/16 12:00 PT 26.1 Seconds (9.9-11.8) H 09/12/16 07:30 INR 2.42 (0.93-1.08) H 09/12/16 07:30 APTT 41.0 Seconds (23.7-30.8) H 09/09/16 12:00 Attending/Attestation - Attestation I have personally seen and examined this patient.: Yes I have fully participated in the care of the patient.: Yes I have reviewed all pertinent clinical information, including history, physical exam and plan: Yes Notes (Text): 09/12/16 17:38 Patient was seen and examined with certified medical dosimetrist .Agreed with resident assessment and plan. 51 year old male with history of substance abuse (snorts cocaine), tobacco, alcohol abuse was admitted for evaluation of back pain and found to have epidural abscess T1-T5, osteomyelitis, urinary retention and acute RLE DVT s/p IVC filter on coumadin. He underwent emergent laminectomy and epidural abscess was drained. He is on meropenem as per ID. MRI spine Lumbar and thoracic spine showed that epidural abscess has resolved.ID to decided about duration of antibiotics, CRP is elevated, will reapt CRP next week. Patient hemoglobin is stable.Hematuria has resolved,hemoglobin is stable despite oral anticoagulation. Continue supportive care. Patient is awaiting placement. Management plan was discussed in detail with patient Education was provided.
[2016-09-12] MEDS: Pantoprazole 40 mg EC Tab PO SCH (09:26)
[2016-09-12] MEDS: Multivitamin With Minerals Tab PO SCH (09:29)
[2016-09-12] MEDS: Silver Sulfadiazine 1% Cream (20 gm) TOP SCH (09:30)
[2016-09-12] MEDS: Miconazole 2% Cream(30 gm) TOP SCH (09:31)
--- NOTE | 2016-09-12 19:36 | CP.PCM.PN ---
Subjective - Date & Time of Evaluation Date of Evaluation: 09/12/16 Time of Evaluation: 19:45 - Subjective Subjective: Anesthesiology, Addendum to anesthesia record on 09/09/2016. Atul Rivero underwent fiberoptic cystoscopy under general anesthesia. Propofol 200 mg was given but was not documented on the anesthesia record. Propofol 200 mg was returned, however Fentanyl was inadvertently selected. Gianni Everett MD Objective - Vital Signs/Intake and Output Vital Signs (last 24 hours): Temp Pulse Resp BP Pulse Ox 97.6 F 61 16 109/70 99 09/12/16 16:00 09/12/16 17:50 09/12/16 16:00 09/12/16 17:50 09/12/16 16:00 Intake and Output: 09/12/16 09/13/16 18:59 06:59 Intake Total 840 100 Output Total 1000 Balance -160 100 - Medications Medications: Current Medications Ascorbic Acid (Vitamin C 500 Mg Tab) 500 mg PO DAILY [facility] Last Admin: 09/12/16 09:29 Dose: 500 mg Baclofen (Lioresal) 20 mg PO TID [facility] Last Admin: 09/12/16 17:51 Dose: 20 mg Bisacodyl (Dulcolax) 5 mg PO DAILY PRN PRN Reason: Constipation Meropenem 1g/NS 100mL IVPB (Meropenem 1g/Ns 100ml Ivpb) 1 gm in 100 mls @ 100 mls/hr IVPB Q8 [facility] PRN Reason: Protocol Stop: 10/02/16 17:44 Last Admin: 09/12/16 14:28 Dose: 100 mls/hr Metoprolol Tartrate (Lopressor) 25 mg PO BID [facility] Last Admin: 09/12/16 17:50 Dose: 25 mg Miconazole Nitrate (Miconazole 2% Cream) 0 ea TOP BID [facility] Last Admin: 09/12/16 09:31 Dose: 1 applic Multivitamins/Minerals (Therapeutic-M Tab) 1 tab PO DAILY [facility] Last Admin: 09/12/16 09:29 Dose: 1 tab Ondansetron HCl (Zofran Inj) 4 mg IVP Q6H PRN PRN Reason: Nausea/Vomiting Pantoprazole Sodium (Protonix Ec Tab) 40 mg PO ACB [facility] Last Admin: 09/12/16 09:26 Dose: 40 mg Pramipexole Dihydrochloride (Mirapex) 0.25 mg PO TID [facility] Last Admin: 09/12/16 17:51 Dose: 0.25 mg Silver Sulfadiazine (Silvadene 1% 20 Gm) 0 ea TOP BID [facility] Last Admin: 09/12/16 09:30 Dose: 1 applic Warfarin Sodium (Coumadin) 5 mg PO 1800 [facility] PRN Reason: Protocol Last Admin: 09/12/16 17:50 Dose: 5 mg Zinc Sulfate (Zinc Sulfate 220 Mg Cap) 220 mg PO DAILY [facility] Last Admin: 09/12/16 09:26 Dose: 220 mg - Labs Labs: 09/10/16 07:00 09/09/16 12:00 PT 26.1 Seconds (9.9-11.8) H 09/12/16 07:30 INR 2.42 (0.93-1.08) H 09/12/16 07:30 APTT 41.0 Seconds (23.7-30.8) H 09/09/16 12:00
[2016-09-13] MEDS: Meropenem 1g/NS 100mL IVPB 1 GM/100 ML PIGGYBACK IVPB SCH ×3 (05:59→21:16)
[2016-09-13] MEDS: Multivitamin With Minerals Tab PO SCH (10:15)
[2016-09-13] MEDS: Pantoprazole 40 mg EC Tab PO SCH (10:16)
[2016-09-13] MEDS: Silver Sulfadiazine 1% Cream (20 gm) TOP SCH ×2 (10:16→17:19)
[2016-09-13] MEDS: Miconazole 2% Cream(30 gm) TOP SCH ×2 (10:16→17:19)
--- NOTE | 2016-09-13 11:46 | CP.PCM.PN ---
<MichaelGlenn - Last Filed: 09/13/16 11:45> Subjective - Date & Time of Evaluation Date of Evaluation: 09/13/16 Time of Evaluation: 11:45 - Subjective Subjective: Patient seen at bedside. Continues to experience LE cramping and twitching. He is participating in PT. Urine is clear. No other complaints at this time. Objective - Vital Signs/Intake and Output Vital Signs (last 24 hours): Temp Pulse Resp BP Pulse Ox 97.6 F 85 16 116/85 99 09/12/16 16:00 09/13/16 10:16 09/12/16 16:00 09/13/16 10:16 09/12/16 16:00 Intake and Output: 09/13/16 09/13/16 06:59 18:59 Intake Total 680 Output Total 900 Balance -220 - Medications Medications: Current Medications Ascorbic Acid (Vitamin C 500 Mg Tab) 500 mg PO DAILY [facility] Last Admin: 09/13/16 10:16 Dose: 500 mg Baclofen (Lioresal) 20 mg PO TID [facility] Last Admin: 09/13/16 10:16 Dose: 20 mg Bisacodyl (Dulcolax) 5 mg PO DAILY PRN PRN Reason: Constipation Meropenem 1g/NS 100mL IVPB (Meropenem 1g/Ns 100ml Ivpb) 1 gm in 100 mls @ 100 mls/hr IVPB Q8 [facility] PRN Reason: Protocol Stop: 10/02/16 17:44 Last Admin: 09/13/16 05:59 Dose: 100 mls/hr Metoprolol Tartrate (Lopressor) 25 mg PO BID [facility] Last Admin: 09/13/16 10:16 Dose: 25 mg Miconazole Nitrate (Miconazole 2% Cream) 0 ea TOP BID [facility] Last Admin: 09/13/16 10:16 Dose: 1 applic Multivitamins/Minerals (Therapeutic-M Tab) 1 tab PO DAILY [facility] Last Admin: 09/13/16 10:15 Dose: 1 tab Ondansetron HCl (Zofran Inj) 4 mg IVP Q6H PRN PRN Reason: Nausea/Vomiting Pantoprazole Sodium (Protonix Ec Tab) 40 mg PO ACB [facility] Last Admin: 09/13/16 10:16 Dose: 40 mg Pramipexole Dihydrochloride (Mirapex) 0.25 mg PO TID [facility] Last Admin: 09/13/16 10:16 Dose: 0.25 mg Silver Sulfadiazine (Silvadene 1% 20 Gm) 0 ea TOP BID [facility] Last Admin: 09/13/16 10:16 Dose: 1 applic Warfarin Sodium (Coumadin) 5 mg PO 1800 [facility] PRN Reason: Protocol Last Admin: 09/12/16 17:50 Dose: 5 mg Zinc Sulfate (Zinc Sulfate 220 Mg Cap) 220 mg PO DAILY [facility] Last Admin: 09/13/16 10:16 Dose: 220 mg - Labs Labs: 09/10/16 07:00 09/09/16 12:00 PT 26.1 Seconds (9.9-11.8) H 09/12/16 07:30 INR 2.42 (0.93-1.08) H 09/12/16 07:30 APTT 41.0 Seconds (23.7-30.8) H 09/09/16 12:00 - Constitutional Appears: Non-toxic, No Acute Distress - Head Exam Head Exam: ATRAUMATIC, NORMOCEPHALIC - Eye Exam Eye Exam: EOMI, PERRL - ENT Exam ENT Exam: Mucous Membranes Moist - Respiratory Exam Respiratory Exam: Clear to Ausculation Bilateral. absent: Rales, Rhonchi, Wheezes - Cardiovascular Exam Cardiovascular Exam: REGULAR RHYTHM, +S1, +S2 - GI/Abdominal Exam GI & Abdominal Exam: Soft, Normal Bowel Sounds - Extremities Exam Extremities Exam: absent: Full ROM, Pedal Edema - Neurological Exam Neurological Exam: Alert, Awake, Oriented x3 Neuro motor strength exam: Left Lower Extremity: 0, Right Lower Extremity: 0 - Psychiatric Exam Psychiatric exam: Normal Affect, Normal Mood - Skin Skin Exam: Dry, Normal Color Assessment and Plan - Assessment and Plan (Free Text) Assessment: Patient is a 51 year old male with no significant past medical history is 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 Patient is medically stable and awaiting final outpatient planning. ESR trend 34 - trending down. CRP trending up. Continue with abx. Following ID recommendations. 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 CRP trending up - MRI lumbar and thoracic spine - resolving osteomyelitis, discitis. abscess has resolved. - Continue meropenem for now - will follow ID recommendations on utimate duration of theapy. - ID following - Tramadol prn for pain hematuria, asymptomatic - clear straw colored urine today - cystocopy POD 1 - haque to remain in place - hematuria has now resolved. 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 Boots in place - Baclofen 20 mg PO TID - Continue Mirapex R LE DVT s/p IVC filter placed - INR is therapeutic. Will maintain INR between 2-3 - Continue coumadin. will adjust based on INR - Will check INR and labs every other day. will continue to monitor for bleeding IVC filter in place Neurogenic bowel vs. ileus: resolved. - Full diet but will monitor closely - Dulcolax PO and RC PRN Neurogenic bladder - Haque in place draining light yellow urine multiple stage 2 pressure ulcer on sacrum and buttock improving - air mattress and continue to reposition q2H - continue multivit, zinc, vitamin C PO - Wound care is following Prophylaxis GI ppx- Protonix DVT ppx- coumadin Dispo: patient is pending placement at this time. Patient's family is actively filing patient's forms for this. <Edgardo GUTIERREZ,Jarrod - Last Filed: 09/13/16 15:47> Objective - Vital Signs/Intake and Output Vital Signs (last 24 hours): Temp Pulse Resp BP Pulse Ox 97.6 F 85 16 116/85 99 09/12/16 16:00 09/13/16 10:16 09/12/16 16:00 09/13/16 10:16 09/12/16 16:00 Intake and Output: 09/13/16 09/13/16 06:59 18:59 Intake Total 680 580 Output Total 900 700 Balance -220 -120 - Medications Medications: Current Medications Ascorbic Acid (Vitamin C 500 Mg Tab) 500 mg PO DAILY [facility] Last Admin: 09/13/16 10:16 Dose: 500 mg Baclofen (Lioresal) 20 mg PO TID [facility] Last Admin: 09/13/16 13:34 Dose: 20 mg Bisacodyl (Dulcolax) 5 mg PO DAILY [facility] PRN Reason: Constipation Meropenem 1g/NS 100mL IVPB (Meropenem 1g/Ns 100ml Ivpb) 1 gm in 100 mls @ 100 mls/hr IVPB Q8 [facility] PRN Reason: Protocol Stop: 10/02/16 17:44 Last Admin: 09/13/16 13:33 Dose: 100 mls/hr Metoprolol Tartrate (Lopressor) 25 mg PO BID [facility] Last Admin: 09/13/16 10:16 Dose: 25 mg Miconazole Nitrate (Miconazole 2% Cream) 0 ea TOP BID [facility] Last Admin: 09/13/16 10:16 Dose: 1 applic Multivitamins/Minerals (Therapeutic-M Tab) 1 tab PO DAILY [facility] Last Admin: 09/13/16 10:15 Dose: 1 tab Ondansetron HCl (Zofran Inj) 4 mg IVP Q6H PRN PRN Reason: Nausea/Vomiting Pantoprazole Sodium (Protonix Ec Tab) 40 mg PO ACB [facility] Last Admin: 09/13/16 10:16 Dose: 40 mg Pramipexole Dihydrochloride (Mirapex) 0.25 mg PO TID [facility] Last Admin: 09/13/16 13:34 Dose: 0.25 mg Silver Sulfadiazine (Silvadene 1% 20 Gm) 0 ea TOP BID [facility] Last Admin: 09/13/16 10:16 Dose: 1 applic Warfarin Sodium (Coumadin) 5 mg PO 1800 [facility] PRN Reason: Protocol Last Admin: 09/12/16 17:50 Dose: 5 mg Zinc Sulfate (Zinc Sulfate 220 Mg Cap) 220 mg PO DAILY [facility] Last Admin: 09/13/16 10:16 Dose: 220 mg - Labs Labs: 09/10/16 07:00 09/09/16 12:00 PT 26.1 Seconds (9.9-11.8) H 09/12/16 07:30 INR 2.42 (0.93-1.08) H 09/12/16 07:30 APTT 41.0 Seconds (23.7-30.8) H 09/09/16 12:00 Attending/Attestation - Attestation I have personally seen and examined this patient.: Yes I have fully participated in the care of the patient.: Yes I have reviewed all pertinent clinical information, including history, physical exam and plan: Yes Notes (Text): 09/13/16 15:46 Patient was seen and examined with family practice medical doctor .Agreed with resident assessment and plan. Patient is stable at his base line , we will continue current management.Patient is awaiting placement. Management plan was discussed in detail with patient Education was provided. 09/13/16 15:46
--- NOTE | 2016-09-13 15:14 | CP.PCM.PN ---
Subjective - Date & Time of Evaluation Date of Evaluation: 09/13/16 Time of Evaluation: 15:13 - Subjective Subjective: pt needs angiocath insertion. Objective - Vital Signs/Intake and Output Vital Signs (last 24 hours): Temp Pulse Resp BP Pulse Ox 97.6 F 85 16 116/85 99 09/12/16 16:00 09/13/16 10:16 09/12/16 16:00 09/13/16 10:16 09/12/16 16:00 Intake and Output: 09/13/16 09/13/16 06:59 18:59 Intake Total 680 580 Output Total 900 700 Balance -220 -120 - Medications Medications: Current Medications Ascorbic Acid (Vitamin C 500 Mg Tab) 500 mg PO DAILY [facility] Last Admin: 09/13/16 10:16 Dose: 500 mg Baclofen (Lioresal) 20 mg PO TID [facility] Last Admin: 09/13/16 13:34 Dose: 20 mg Bisacodyl (Dulcolax) 5 mg PO DAILY [facility] PRN Reason: Constipation Meropenem 1g/NS 100mL IVPB (Meropenem 1g/Ns 100ml Ivpb) 1 gm in 100 mls @ 100 mls/hr IVPB Q8 [facility] PRN Reason: Protocol Stop: 10/02/16 17:44 Last Admin: 09/13/16 13:33 Dose: 100 mls/hr Metoprolol Tartrate (Lopressor) 25 mg PO BID [facility] Last Admin: 09/13/16 10:16 Dose: 25 mg Miconazole Nitrate (Miconazole 2% Cream) 0 ea TOP BID [facility] Last Admin: 09/13/16 10:16 Dose: 1 applic Multivitamins/Minerals (Therapeutic-M Tab) 1 tab PO DAILY [facility] Last Admin: 09/13/16 10:15 Dose: 1 tab Ondansetron HCl (Zofran Inj) 4 mg IVP Q6H PRN PRN Reason: Nausea/Vomiting Pantoprazole Sodium (Protonix Ec Tab) 40 mg PO ACB [facility] Last Admin: 09/13/16 10:16 Dose: 40 mg Pramipexole Dihydrochloride (Mirapex) 0.25 mg PO TID [facility] Last Admin: 09/13/16 13:34 Dose: 0.25 mg Silver Sulfadiazine (Silvadene 1% 20 Gm) 0 ea TOP BID [facility] Last Admin: 09/13/16 10:16 Dose: 1 applic Warfarin Sodium (Coumadin) 5 mg PO 1800 [facility] PRN Reason: Protocol Last Admin: 09/12/16 17:50 Dose: 5 mg Zinc Sulfate (Zinc Sulfate 220 Mg Cap) 220 mg PO DAILY [facility] Last Admin: 09/13/16 10:16 Dose: 220 mg - Labs Labs: 09/10/16 07:00 09/09/16 12:00 PT 26.1 Seconds (9.9-11.8) H 09/12/16 07:30 INR 2.42 (0.93-1.08) H 09/12/16 07:30 APTT 41.0 Seconds (23.7-30.8) H 09/09/16 12:00 Assessment and Plan - Assessment and Plan (Free Text) Assessment: 22 guage angiocath inserted in left wrist area.
[2016-09-14] MEDS: Meropenem 1g/NS 100mL IVPB 1 GM/100 ML PIGGYBACK IVPB SCH ×3 (06:30→21:59)
[2016-09-14] MEDS: Pantoprazole 40 mg EC Tab PO SCH (06:31)
--- NOTE | 2016-09-14 06:31 | PCM.URO ---
Urology Progress Note - Objective Intake & Output: Intake & Output 09/13/16 09/13/16 09/14/16 06:59 18:59 06:59 Intake Total 680 580 960 Output Total 581 951 9899 Balance -220 -120 -515 Intake: IV 100 Left Forearm 100 Oral 580 580 960 Output: Urine [phone] Urethral ([place]) [phone] Other: # Bowel Movements 1 Vital Signs: Vital Signs - 24 hr 09/13/16 09/13/16 09/13/16 10:16 16:00 17:17 Temperature 97.4 F L Pulse Rate 85 55 L 65 Respiratory 20 Rate Blood Pressure 116/85 133/74 133/77 O2 Sat by Pulse 99 Oximetry
[2016-09-14] MEDS: Multivitamin With Minerals Tab PO SCH (09:10)
[2016-09-14] MEDS: Silver Sulfadiazine 1% Cream (20 gm) TOP SCH ×2 (09:12→17:02)
[2016-09-14] MEDS: Miconazole 2% Cream(30 gm) TOP SCH ×2 (09:13→17:02)
--- NOTE | 2016-09-14 12:25 | CP.PCM.PN ---
Subjective - Date & Time of Evaluation Date of Evaluation: 09/14/16 Time of Evaluation: 10:30 - Subjective Subjective: Patient does not has any new complaint He is at his base line.Denies chest pain or palpitation Objective - Vital Signs/Intake and Output Vital Signs (last 24 hours): Temp Pulse Resp BP Pulse Ox 97.9 F 51 L 18 115/68 97 09/14/16 08:17 09/14/16 08:17 09/14/16 08:17 09/14/16 09:10 09/14/16 08:17 Intake and Output: 09/14/16 09/14/16 06:59 18:59 Intake Total 960 Output Total 1475 Balance -515 - Medications Medications: Current Medications Ascorbic Acid (Vitamin C 500 Mg Tab) 500 mg PO DAILY [facility] [place] Last Admin: 09/14/16 09:10 Dose: 500 mg Baclofen (Lioresal) 20 mg PO TID [facility] Last Admin: 09/14/16 09:12 Dose: 20 mg Bisacodyl (Dulcolax) 5 mg PO DAILY PRN PRN Reason: Constipation Meropenem 1g/NS 100mL IVPB (Meropenem 1g/Ns 100ml Ivpb) 1 gm in 100 mls @ 100 mls/hr IVPB Q8 [facility] [place] PRN Reason: Protocol Stop: 10/02/16 17:44 Last Admin: 09/14/16 06:30 Dose: 100 mls/hr Metoprolol Tartrate (Lopressor) 25 mg PO BID [facility] [place] Last Admin: 09/14/16 09:10 Dose: 25 mg Miconazole Nitrate (Miconazole 2% Cream) 0 ea TOP BID [facility] [place] Last Admin: 09/14/16 09:13 Dose: 1 applic Multivitamins/Minerals (Therapeutic-M Tab) 1 tab PO DAILY [facility] [place] Last Admin: 09/14/16 09:10 Dose: 1 tab Ondansetron HCl (Zofran Inj) 4 mg IVP Q6H PRN PRN Reason: Nausea/Vomiting Pantoprazole Sodium (Protonix Ec Tab) 40 mg PO ACB [facility] [place] Last Admin: 09/14/16 06:31 Dose: 40 mg Pramipexole Dihydrochloride (Mirapex) 0.25 mg PO TID [facility] [place] Last Admin: 09/14/16 09:10 Dose: 0.25 mg Silver Sulfadiazine (Silvadene 1% 20 Gm) 0 ea TOP BID [facility] [place] Last Admin: 09/14/16 09:12 Dose: 1 applic Warfarin Sodium (Coumadin) 5 mg PO 1800 [facility] [place] PRN Reason: Protocol Last Admin: 09/13/16 17:18 Dose: 5 mg Zinc Sulfate (Zinc Sulfate 220 Mg Cap) 220 mg PO DAILY [facility] [place] Last Admin: 09/14/16 09:10 Dose: 220 mg - Labs Labs: 09/10/16 07:00 09/09/16 12:00 PT 26.1 Seconds (9.9-11.8) H 09/12/16 07:30 INR 2.42 (0.93-1.08) H 09/12/16 07:30 APTT 41.0 Seconds (23.7-30.8) H 09/09/16 12:00 - Constitutional Appears: Non-toxic, No Acute Distress - Head Exam Head Exam: ATRAUMATIC, NORMAL INSPECTION - Neck Exam Neck Exam: Full ROM, Normal Inspection Additional comments: JVP is not raised - Respiratory Exam Respiratory Exam: Clear to Ausculation Bilateral, NORMAL BREATHING PATTERN - Cardiovascular Exam Cardiovascular Exam: REGULAR RHYTHM - GI/Abdominal Exam GI & Abdominal Exam: Soft Additional comments: no distension, no tenderness - Extremities Exam Additional comments: no edema, no cynosis - Neurological Exam Neurological Exam: Alert, Awake, Oriented x3 Neuro motor strength exam: Left Upper Extremity: 5, Right Upper Extremity: 5, Left Lower Extremity: 0, Right Lower Extremity: 0 (no new focal deficit) Assessment and Plan - Assessment and Plan (Free Text) Assessment: 51 year old male with history of substance abuse (snorts cocaine), tobacco, alcohol use who got admitted for evaluation of back pain and found to have epidural abscess T1-T5, osteomyelitis, urinary retention and acute RLE DVT s/p IVC filter on coumadin. He underwent emergent laminectomy and epidural abscess was drained. Wound cultures grew Streptococcus Pneumonia. He remains on meropenem. Repeat MRI showed improvement but CRP is elevated .Hematuria is resolved. Hemoglobin is stable. 1. 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 CRP trending up - MRI lumbar and thoracic spine - resolving osteomyelitis, discitis. abscess has resolved. - Continue meropenem for now - will follow ID recommendations on utimate duration of theapy. - ID following - Tramadol prn for pain 2.Hematuria, resolved - Hemoglobin is stable 3. Paraplegia - Aggressive PT/OT - Turn patient q2h to prevent stress ulcers. Boots in place - Baclofen 20 mg PO TID - Continue Mirapex 4.R LE DVT s/p IVC filter placed - INR is therapeutic. Will maintain INR between 2-3 - Continue coumadin. will adjust based on INR - Will check INR and labs every other day. will continue to monitor for bleeding IVC filter in place 5.Neurogenic bladder - Mackenzie in place draining light yellow urine multiple stage 2 pressure ulcer on sacrum and buttock improving - air mattress and continue to reposition q2H - continue multivit, zinc, vitamin C PO - Wound care is following Management plan was discussed in detail with patient Education was provided.
--- NOTE | 2016-09-14 21:39 | CP.PCM.PN ---
Subjective - Date & Time of Evaluation Date of Evaluation: 09/14/16 Time of Evaluation: 21:39 - Subjective Subjective: # 20 angiocath was inserted in left forearm. Dx:Poor venous access. Objective - Vital Signs/Intake and Output Vital Signs (last 24 hours): Temp Pulse Resp BP Pulse Ox 97.3 F L 73 20 143/60 98 09/14/16 16:00 09/14/16 16:00 09/14/16 16:00 09/14/16 17:01 09/14/16 16:00 Intake and Output: 09/14/16 09/15/16 18:59 06:59 Intake Total 480 Output Total 600 Balance -120 - Medications Medications: Current Medications Ascorbic Acid (Vitamin C 500 Mg Tab) 500 mg PO DAILY [facility] Last Admin: 09/14/16 09:10 Dose: 500 mg Baclofen (Lioresal) 20 mg PO TID [facility] Last Admin: 09/14/16 17:02 Dose: 20 mg Bisacodyl (Dulcolax) 5 mg PO DAILY PRN PRN Reason: Constipation Meropenem 1g/NS 100mL IVPB (Meropenem 1g/Ns 100ml Ivpb) 1 gm in 100 mls @ 100 mls/hr IVPB Q8 [facility] PRN Reason: Protocol Stop: 10/02/16 17:44 Last Admin: 09/14/16 13:07 Dose: Not Given Metoprolol Tartrate (Lopressor) 25 mg PO BID [facility] Last Admin: 09/14/16 17:01 Dose: 25 mg Miconazole Nitrate (Miconazole 2% Cream) 0 ea TOP BID [facility] Last Admin: 09/14/16 17:02 Dose: 1 applic Multivitamins/Minerals (Therapeutic-M Tab) 1 tab PO DAILY [facility] Last Admin: 09/14/16 09:10 Dose: 1 tab Ondansetron HCl (Zofran Inj) 4 mg IVP Q6H PRN PRN Reason: Nausea/Vomiting Pantoprazole Sodium (Protonix Ec Tab) 40 mg PO ACB [facility] Last Admin: 09/14/16 06:31 Dose: 40 mg Pramipexole Dihydrochloride (Mirapex) 0.25 mg PO TID [facility] Last Admin: 09/14/16 17:01 Dose: 0.25 mg Silver Sulfadiazine (Silvadene 1% 20 Gm) 0 ea TOP BID [facility] Last Admin: 09/14/16 17:02 Dose: 1 applic Warfarin Sodium (Coumadin) 5 mg PO 1800 [facility] PRN Reason: Protocol Last Admin: 09/14/16 17:02 Dose: 5 mg Zinc Sulfate (Zinc Sulfate 220 Mg Cap) 220 mg PO DAILY [facility] Last Admin: 09/14/16 09:10 Dose: 220 mg - Labs Labs: 09/10/16 07:00 09/09/16 12:00 PT 26.1 Seconds (9.9-11.8) H 09/12/16 07:30 INR 2.42 (0.93-1.08) H 09/12/16 07:30 APTT 41.0 Seconds (23.7-30.8) H 09/09/16 12:00
[2016-09-15] MEDS: Meropenem 1g/NS 100mL IVPB 1 GM/100 ML PIGGYBACK IVPB SCH ×3 (06:13→21:48)
[2016-09-15] MEDS: Pantoprazole 40 mg EC Tab PO SCH (06:44)
[2016-09-15] MEDS: Multivitamin With Minerals Tab PO SCH (10:51)
--- NOTE | 2016-09-15 12:15 | CP.PCM.PN ---
<Glenn Rodriguez - Last Filed: 09/15/16 12:12> Subjective - Date & Time of Evaluation Date of Evaluation: 09/15/16 Time of Evaluation: 12:13 - Subjective Subjective: Patient seen and examined. He has no complaints at this time. Patient is participating in PT. No new neurological changes. Objective - Vital Signs/Intake and Output Vital Signs (last 24 hours): Temp Pulse Resp BP Pulse Ox 97.6 F 57 L 22 129/78 96 09/15/16 07:30 09/15/16 07:30 09/15/16 07:30 09/15/16 07:30 09/15/16 07:30 Intake and Output: 09/15/16 09/15/16 06:59 18:59 Intake Total 960 Output Total 1200 Balance -240 - Medications Medications: Current Medications Ascorbic Acid (Vitamin C 500 Mg Tab) 500 mg PO DAILY [facility] Last Admin: 09/15/16 10:52 Dose: 500 mg Baclofen (Lioresal) 20 mg PO TID [facility] Last Admin: 09/15/16 10:52 Dose: 20 mg Bisacodyl (Dulcolax) 5 mg PO DAILY PRN PRN Reason: Constipation Meropenem 1g/NS 100mL IVPB (Meropenem 1g/Ns 100ml Ivpb) 1 gm in 100 mls @ 100 mls/hr IVPB Q8 [facility] PRN Reason: Protocol Stop: 10/02/16 17:44 Last Admin: 09/15/16 06:13 Dose: 100 mls/hr Metoprolol Tartrate (Lopressor) 25 mg PO BID [facility] Last Admin: 09/15/16 10:51 Dose: 25 mg Multivitamins/Minerals (Therapeutic-M Tab) 1 tab PO DAILY [facility] Last Admin: 09/15/16 10:51 Dose: 1 tab Ondansetron HCl (Zofran Inj) 4 mg IVP Q6H PRN PRN Reason: Nausea/Vomiting Pantoprazole Sodium (Protonix Ec Tab) 40 mg PO ACB [facility] Last Admin: 09/15/16 06:44 Dose: 40 mg Pramipexole Dihydrochloride (Mirapex) 0.25 mg PO TID [facility] Last Admin: 09/15/16 10:52 Dose: 0.25 mg Warfarin Sodium (Coumadin) 5 mg PO 1800 [facility] PRN Reason: Protocol Last Admin: 09/14/16 17:02 Dose: 5 mg Zinc Sulfate (Zinc Sulfate 220 Mg Cap) 220 mg PO DAILY [facility] Last Admin: 09/15/16 10:51 Dose: 220 mg - Labs Labs: 09/10/16 07:00 09/09/16 12:00 PT 26.1 Seconds (9.9-11.8) H 09/12/16 07:30 INR 2.42 (0.93-1.08) H 09/12/16 07:30 APTT 41.0 Seconds (23.7-30.8) H 09/09/16 12:00 - Constitutional Appears: Non-toxic, No Acute Distress - Head Exam Head Exam: ATRAUMATIC, NORMOCEPHALIC - Eye Exam Eye Exam: EOMI, PERRL - ENT Exam ENT Exam: Mucous Membranes Moist - Neck Exam Neck Exam: Full ROM, Normal Inspection - Respiratory Exam Respiratory Exam: Clear to Ausculation Bilateral. absent: Rales, Rhonchi, Wheezes - Cardiovascular Exam Cardiovascular Exam: REGULAR RHYTHM, +S1, +S2 - GI/Abdominal Exam GI & Abdominal Exam: Soft, Normal Bowel Sounds. 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 Patient is medically stable and awaiting final outpatient planning. ESR trend 34 - trending down. CRP trending up. Continue with abx. Following ID recommendations. 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 CRP trending up - MRI lumbar and thoracic spine - resolving osteomyelitis, discitis. abscess has resolved. - Continue meropenem for now - will follow ID recommendations on utimate duration of theapy. - ID following - Tramadol prn for pain hematuria, asymptomatic - clear straw colored urine today - cystocopy POD 1 - haque to remain in place - hematuria has now resolved. 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 Boots in place - Baclofen 20 mg PO TID - Continue Mirapex R LE DVT s/p IVC filter placed - INR is therapeutic. Will maintain INR between 2-3 - Continue coumadin. will adjust based on INR - Will check INR and labs every other day. will continue to monitor for bleeding IVC filter in place Neurogenic bowel vs. ileus: resolved. - Full diet but will monitor closely - Dulcolax PO and RC PRN Neurogenic bladder - Haque in place draining light yellow urine multiple stage 2 pressure ulcer on sacrum and buttock improving - air mattress and continue to reposition q2H - continue multivit, zinc, vitamin C PO - Wound care is following Prophylaxis GI ppx- Protonix DVT ppx- coumadin Dispo: patient is pending placement at this time. Patient's family is actively filing patient's forms for this. <Edgardo GUTIERREZ,Jarrod - Last Filed: 10/11/16 10:51> Objective - Vital Signs/Intake and Output Vital Signs (last 24 hours): Temp Pulse Resp BP Pulse Ox 97.6 F 66 19 126/80 98 10/09/16 07:59 10/09/16 10:47 10/09/16 07:59 10/09/16 10:47 10/09/16 07:59 - Labs Labs: 10/06/16 06:30 10/05/16 05:05 PT 14.8 Seconds (9.9-11.8) H 10/09/16 05:55 INR 1.37 (0.93-1.08) H 10/09/16 05:55 APTT 41.0 Seconds (23.7-30.8) H 09/09/16 12:00 Attending/Attestation - Attestation I have personally seen and examined this patient.: Yes I have fully participated in the care of the patient.: Yes I have reviewed all pertinent clinical information, including history, physical exam and plan: Yes Notes (Text): 10/11/16 10:51 Patient was seen and examined with medical lab specialist .Agreed with resident assessment and plan. Management plan was discussed in detail with patient Education was provided.
[2016-09-15] MEDS ORDERED: Lidocaine 2% Inj (20ml) ONE (12:35)
--- NOTE | 2016-09-15 17:35 | CP.PCM.PN ---
Subjective - Date & Time of Evaluation Date of Evaluation: 09/15/16 Time of Evaluation: 10:50 - Subjective Subjective: Comfortable, afebrile, not in distress. Objective - Vital Signs/Intake and Output Vital Signs (last 24 hours): Temp Pulse Resp BP Pulse Ox 98.1 F 59 L 22 107/65 97 09/15/16 16:00 09/15/16 16:00 09/15/16 16:00 09/15/16 16:00 09/15/16 16:00 Intake and Output: 09/15/16 09/15/16 06:59 18:59 Intake Total 960 Output Total 1200 Balance -240 - Medications Medications: Current Medications Acetaminophen (Tylenol 325mg Tab) 650 mg PO Q4H PRN PRN Reason: Pain, Mild (1-3) Last Admin: 09/15/16 15:42 Dose: 650 mg Ascorbic Acid (Vitamin C 500 Mg Tab) 500 mg PO DAILY [facility] Last Admin: 09/15/16 10:52 Dose: 500 mg Baclofen (Lioresal) 20 mg PO TID [facility] Last Admin: 09/15/16 14:53 Dose: 20 mg Bisacodyl (Dulcolax) 5 mg PO DAILY PRN PRN Reason: Constipation Meropenem 1g/NS 100mL IVPB (Meropenem 1g/Ns 100ml Ivpb) 1 gm in 100 mls @ 100 mls/hr IVPB Q8 [facility] PRN Reason: Protocol Stop: 10/02/16 17:44 Last Admin: 09/15/16 14:53 Dose: 100 mls/hr Metoprolol Tartrate (Lopressor) 25 mg PO BID [facility] Last Admin: 09/15/16 10:51 Dose: 25 mg Multivitamins/Minerals (Therapeutic-M Tab) 1 tab PO DAILY [facility] Last Admin: 09/15/16 10:51 Dose: 1 tab Ondansetron HCl (Zofran Inj) 4 mg IVP Q6H PRN PRN Reason: Nausea/Vomiting Pantoprazole Sodium (Protonix Ec Tab) 40 mg PO ACB [facility] Last Admin: 09/15/16 06:44 Dose: 40 mg Pramipexole Dihydrochloride (Mirapex) 0.25 mg PO TID [facility] Last Admin: 09/15/16 14:53 Dose: 0.25 mg Warfarin Sodium (Coumadin) 5 mg PO 1800 [facility] PRN Reason: Protocol Last Admin: 09/14/16 17:02 Dose: 5 mg Zinc Sulfate (Zinc Sulfate 220 Mg Cap) 220 mg PO DAILY [facility] Last Admin: 09/15/16 10:51 Dose: 220 mg - Labs Labs: 09/10/16 07:00 09/09/16 12:00 PT 26.1 Seconds (9.9-11.8) H 09/12/16 07:30 INR 2.42 (0.93-1.08) H 09/12/16 07:30 APTT 41.0 Seconds (23.7-30.8) H 09/09/16 12:00 - Constitutional Appears: Non-toxic, No Acute Distress - Head Exam Head Exam: NORMAL INSPECTION - Neck Exam Neck Exam: absent: Meningismus - Respiratory Exam Respiratory Exam: Decreased Breath Sounds - Cardiovascular Exam Cardiovascular Exam: +S1, +S2 - GI/Abdominal Exam GI & Abdominal Exam: Soft. 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 with associated cord compression and lower extremity paralysis and neurogenic bladder S/P neurosurgery for abscess drainage and laminectomy POD #65 Possible drug reaction to Rocephin Partial small bowel obstruction, clinically improved and resolved significant smoking history alcohol abuse obesity with BMI 40 Plan continue Merrem (now on more than 9 weeks of therapy) because the CRP is still elevated; will follow up weekly ESR, CRP; repeat MRI shows improvement in marrow edema in the T3-T4 area but not resolution Will continue to follow clinically
--- NOTE | 2016-09-15 20:12 | VASCULAR ---
PROCEDURE: Ultrasound and fluoroscopically placed left upper extremity PICC line. HISTORY: Epidural abscess. Long-term IV antibiotics. Needs PICC line. PHYSICIAN(S): Pradeep Monsalve MD. TECHNIQUE: The relative risks and indications of the procedure were explained to the patient and consent obtained. The patient was placed supine on the arteriogram table and the left arm prepped and draped in the usual sterile fashion. A tourniquet was applied to the left axilla. 1% Xylocaine was used to anesthetize the skin and soft tissues at the puncture site above the elbow. The left basilic vein was punctured under direct ultrasound guidance with a micropuncture set. A 0.018 guidewire was advanced centrally and used to measure the length to the SVC/RA junction. A 5 [place] single-lumen PICC line 51 cm long was advanced to the SVC/RA junction. The catheter was flushed and secured. The patient tolerated the procedure well. IMPRESSION: 1. Ultrasound and fluoroscopically placed left upper extremity PICC line. A 5 [place] single-lumen PICC line 51 cm long was advanced to the SVC/RA junction.
[2016-09-16] MEDS: Meropenem 1g/NS 100mL IVPB 1 GM/100 ML PIGGYBACK IVPB SCH ×3 (06:11→21:32)
[2016-09-16] MEDS: Pantoprazole 40 mg EC Tab PO SCH (06:30)
[2016-09-16] MEDS: Multivitamin With Minerals Tab PO SCH (11:16)
[2016-09-16 12:23] LABS: BASO # 0.01 K/mm3 (0.0-2.0); BASO % 0.2 % (0.0-3.0); EOS # 0.3 (0.0-0.7); EOS % 3.8 % (1.5-5.0); GRAN # 4.64 (1.4-6.5); GRAN % 70.8 % (50.0-68.0); LYMPH # 1.3 (1.2-3.4); LYMPH % 19.1 % (22.0-35.0); MEAN CELL VOLUME 86.4 fL (80.0-105.0); MEAN CORPUSCULAR HEMOGLOBIN 29.1 pg (25.0-35.0); MEAN CORPUSCULAR HGB CONC 33.7 g/dl (31.0-37.0); MEAN PLATELET VOLUME 12.5 fl (7.0-11.0); MONO # 0.4 (0.1-0.6); MONO % 6.1 % (1.0-6.0); PLATELET COUNT 177 10^3/uL (120.0-450.0); RBC 4.47 10^6/uL (3.5-6.1); RED CELL DISTRIBUTION WIDTH 13.9 % (11.5-14.5); WHITE BLOOD COUNT 6.6 10^3/ul (4.5-11.0)
[2016-09-16 12:42] LABS: ALB/GLOB RATIO 1.1 (1.1-1.8); ALBUMIN 3.6 g/dL (3.0-4.8); ALT/SGPT 48 U/L (7-56); AST/SGOT 27 U/L (15-59); BLOOD UREA NITROGEN 24 mg/dL (7-21); CALCIUM 9.6 mg/dL (8.4-10.5); GFR AFRICAN-AMERICAN > 60; GFR NON-AFRICAN AMERICAN > 60
--- NOTE | 2016-09-16 13:42 | CP.PCM.PN ---
<MichaelGlenn - Last Filed: 09/16/16 13:38> Subjective - Date & Time of Evaluation Date of Evaluation: 09/16/16 Time of Evaluation: 13:38 - Subjective Subjective: Patient seen and examined. He is participating in PT daily. PICC placed yesterday. Notes increased sensation to b/l proximal thighs. No complaints at this time. Objective - Vital Signs/Intake and Output Vital Signs (last 24 hours): Temp Pulse Resp BP Pulse Ox 97.7 F 56 L 20 124/73 95 09/16/16 07:30 09/16/16 11:15 09/16/16 07:30 09/16/16 11:15 09/16/16 07:30 Intake and Output: 09/16/16 09/16/16 06:59 18:59 Intake Total 960 400 Output Total 900 Balance 60 400 - Medications Medications: Current Medications Acetaminophen (Tylenol 325mg Tab) 650 mg PO Q4H PRN PRN Reason: Pain, Mild (1-3) Last Admin: 09/15/16 15:42 Dose: 650 mg Ascorbic Acid (Vitamin C 500 Mg Tab) 500 mg PO DAILY [facility] Last Admin: 09/16/16 11:17 Dose: 500 mg Baclofen (Lioresal) 20 mg PO TID [facility] Last Admin: 09/16/16 13:18 Dose: 20 mg Bisacodyl (Dulcolax) 5 mg PO DAILY PRN PRN Reason: Constipation Meropenem 1g/NS 100mL IVPB (Meropenem 1g/Ns 100ml Ivpb) 1 gm in 100 mls @ 100 mls/hr IVPB Q8 [facility] PRN Reason: Protocol Stop: 10/02/16 17:44 Last Admin: 09/16/16 13:18 Dose: 100 mls/hr Metoprolol Tartrate (Lopressor) 25 mg PO BID [facility] Last Admin: 09/16/16 11:15 Dose: 25 mg Multivitamins/Minerals (Therapeutic-M Tab) 1 tab PO DAILY [facility] Last Admin: 09/16/16 11:16 Dose: 1 tab Ondansetron HCl (Zofran Inj) 4 mg IVP Q6H PRN PRN Reason: Nausea/Vomiting Pantoprazole Sodium (Protonix Ec Tab) 40 mg PO ACB [facility] Last Admin: 09/16/16 06:30 Dose: 40 mg Pramipexole Dihydrochloride (Mirapex) 0.25 mg PO TID [facility] Last Admin: 09/16/16 13:18 Dose: 0.25 mg Warfarin Sodium (Coumadin) 5 mg PO 1800 [facility] PRN Reason: Protocol Last Admin: 09/15/16 17:56 Dose: 5 mg Zinc Sulfate (Zinc Sulfate 220 Mg Cap) 220 mg PO DAILY [facility] Last Admin: 09/16/16 11:14 Dose: 220 mg - Labs Labs: 09/16/16 11:30 09/16/16 11:30 PT 26.1 Seconds (9.9-11.8) H 09/12/16 07:30 INR 2.42 (0.93-1.08) H 09/12/16 07:30 APTT 41.0 Seconds (23.7-30.8) H 09/09/16 12:00 - Constitutional Appears: Non-toxic, No Acute Distress - Head Exam Head Exam: ATRAUMATIC, NORMOCEPHALIC - Eye Exam Eye Exam: EOMI, PERRL - ENT Exam ENT Exam: Mucous Membranes Moist - Neck Exam Neck Exam: Full ROM, Normal Inspection - Respiratory Exam Respiratory Exam: Clear to Ausculation Bilateral. absent: Rales, Rhonchi, Wheezes - Cardiovascular Exam Cardiovascular Exam: REGULAR RHYTHM, +S1, +S2 - GI/Abdominal Exam GI & Abdominal Exam: Soft, Normal Bowel Sounds. absent: Tenderness - Extremities Exam Extremities Exam: absent: Full ROM, Pedal Edema - Neurological Exam Neurological Exam: Alert, Awake, Oriented x3 Neuro motor strength exam: Left Lower Extremity: 0, Right Lower Extremity: 0 Additional comments: sensation intact to b/l proximal medial lower extremities. new from prior exams - Psychiatric Exam Psychiatric exam: Normal Affect, Normal Mood - Skin Skin Exam: Dry, Warm Assessment and Plan - Assessment and Plan (Free Text) Assessment: Patient is a 51 year old male with no significant past medical history is 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 Patient is medically stable and awaiting final outpatient planning. ESR 51, CRP 6.49. Both are trending upward. INR remains therapeutic. Epidural space abscess s/p lamenectomy T2-T4 on 07/07/16 - ESR, CRP both trending up. - MRI lumbar and thoracic spine - resolving osteomyelitis, discitis. abscess has resolved. - Continue meropenem for now - will follow ID recommendations on ultimate duration of therapy. - ID following - Tramadol prn for pain hematuria, asymptomatic - clear straw colored urine today - cystocopy POD 1 - haque to remain in place - hematuria has now resolved. 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 Boots in place - Baclofen 20 mg PO TID - Continue Mirapex R LE DVT s/p IVC filter placed - INR is therapeutic. Will maintain INR between 2-3 - Continue coumadin. will adjust based on INR - Will check INR and labs every other day. will continue to monitor for bleeding IVC filter in place Neurogenic bowel vs. ileus: resolved. - Full diet but will monitor closely - Dulcolax PO and RC PRN Neurogenic bladder - Haque in place draining light yellow urine multiple stage 2 pressure ulcer on sacrum and buttock improving - air mattress and continue to reposition q2H - continue multivit, zinc, vitamin C PO - Wound care is following Prophylaxis GI ppx- Protonix DVT ppx- coumadin Dispo: patient is pending placement at this time. Patient's family is actively filing patient's forms for this. <Edgardo GUTIERREZ,[facility] - Last Filed: 09/16/16 16:25> Objective - Vital Signs/Intake and Output Vital Signs (last 24 hours): Temp Pulse Resp BP Pulse Ox 97.7 F 56 L 20 124/73 95 09/16/16 07:30 09/16/16 11:15 09/16/16 07:30 09/16/16 11:15 09/16/16 07:30 Intake and Output: 09/16/16 09/16/16 06:59 18:59 Intake Total 960 400 Output Total 900 800 Balance 60 -400 - Medications Medications: Current Medications Acetaminophen (Tylenol 325mg Tab) 650 mg PO Q4H PRN PRN Reason: Pain, Mild (1-3) Last Admin: 09/15/16 15:42 Dose: 650 mg Ascorbic Acid (Vitamin C 500 Mg Tab) 500 mg PO DAILY [facility] Last Admin: 09/16/16 11:17 Dose: 500 mg Baclofen (Lioresal) 20 mg PO TID [facility] Last Admin: 09/16/16 13:18 Dose: 20 mg Bisacodyl (Dulcolax) 5 mg PO DAILY PRN PRN Reason: Constipation Meropenem 1g/NS 100mL IVPB (Meropenem 1g/Ns 100ml Ivpb) 1 gm in 100 mls @ 100 mls/hr IVPB Q8 [facility] PRN Reason: Protocol Stop: 10/02/16 17:44 Last Admin: 09/16/16 13:18 Dose: 100 mls/hr Metoprolol Tartrate (Lopressor) 25 mg PO BID [facility] Last Admin: 09/16/16 11:15 Dose: 25 mg Multivitamins/Minerals (Therapeutic-M Tab) 1 tab PO DAILY [facility] Last Admin: 09/16/16 11:16 Dose: 1 tab Ondansetron HCl (Zofran Inj) 4 mg IVP Q6H PRN PRN Reason: Nausea/Vomiting Pantoprazole Sodium (Protonix Ec Tab) 40 mg PO ACB [facility] Last Admin: 09/16/16 06:30 Dose: 40 mg Pramipexole Dihydrochloride (Mirapex) 0.25 mg PO TID [facility] Last Admin: 09/16/16 13:18 Dose: 0.25 mg Warfarin Sodium (Coumadin) 5 mg PO 1800 [facility] PRN Reason: Protocol Last Admin: 09/15/16 17:56 Dose: 5 mg Zinc Sulfate (Zinc Sulfate 220 Mg Cap) 220 mg PO DAILY [facility] Last Admin: 09/16/16 11:14 Dose: 220 mg - Labs Labs: 09/16/16 11:30 09/16/16 11:30 PT 27.1 Seconds (9.9-11.8) H 09/16/16 13:30 INR 2.51 (0.93-1.08) H 09/16/16 13:30 APTT 41.0 Seconds (23.7-30.8) H 09/09/16 12:00 Attending/Attestation - Attestation I have personally seen and examined this patient.: Yes I have fully participated in the care of the patient.: Yes I have reviewed all pertinent clinical information, including history, physical exam and plan: Yes Notes (Text): 09/16/16 16:23 Patient was seen and examined with medical reception .Agreed with resident assessment and plan. 51 year old male with history of substance abuse (snorts cocaine), tobacco, alcohol abuse was admitted for evaluation of back pain and found to have epidural abscess T1-T5, osteomyelitis, urinary retention and acute RLE DVT .He is SP IVC filter on coumadin. He underwent emergent laminectomy and epidural abscess was drained. He is on meropenem as per ID, need to continue for atleast 10 weeks as per ID. Repeat MRI spine Lumbar and thoracic spine showed that epidural abscess has resolved. CRP is elevated.Patient is Paraplegic.He is on Coumadin. INR therapeutic. Patient hemoglobin is stable.Hematuria has resolved,Patient is awaiting placement Management plan was discussed in detail with patient Education was provided.
[2016-09-16 14:04] LABS: INR 2.51 (0.93-1.08); PROTHROMBIN TIME 27.1 Seconds (9.9-11.8)
[2016-09-17] MEDS: Meropenem 1g/NS 100mL IVPB 1 GM/100 ML PIGGYBACK IVPB SCH ×3 (07:34→21:27)
[2016-09-17] MEDS: Pantoprazole 40 mg EC Tab PO SCH (10:20)
[2016-09-17] MEDS: Multivitamin With Minerals Tab PO SCH (10:20)
--- NOTE | 2016-09-17 16:37 | CP.PCM.PN ---
<Glenn Rodriguez - Last Filed: 09/17/16 16:35> Subjective - Date & Time of Evaluation Date of Evaluation: 09/17/16 Time of Evaluation: 11:35 - Subjective Subjective: Patient seen and examined this morning. He has no complaints at this time. Patient participates in PT daily. Placement is still pending. Objective - Vital Signs/Intake and Output Vital Signs (last 24 hours): Temp Pulse Resp BP Pulse Ox 97.9 F 59 L 22 114/63 97 09/17/16 16:27 09/17/16 16:27 09/17/16 16:27 09/17/16 16:27 09/17/16 16:27 Intake and Output: 09/17/16 09/17/16 06:59 18:59 Intake Total 800 960 Output Total 1100 1000 Balance -300 -40 - Medications Medications: Current Medications Acetaminophen (Tylenol 325mg Tab) 650 mg PO Q4H PRN PRN Reason: Pain, Mild (1-3) Last Admin: 09/17/16 14:42 Dose: 650 mg Ascorbic Acid (Vitamin C 500 Mg Tab) 500 mg PO DAILY [facility] Last Admin: 09/17/16 10:20 Dose: 500 mg Baclofen (Lioresal) 20 mg PO TID [facility] Last Admin: 09/17/16 13:35 Dose: 20 mg Bisacodyl (Dulcolax) 5 mg PO DAILY PRN PRN Reason: Constipation Meropenem 1g/NS 100mL IVPB (Meropenem 1g/Ns 100ml Ivpb) 1 gm in 100 mls @ 100 mls/hr IVPB Q8 [facility] PRN Reason: Protocol Stop: 10/02/16 17:44 Last Admin: 09/17/16 13:36 Dose: 100 mls/hr Metoprolol Tartrate (Lopressor) 25 mg PO BID [facility] Last Admin: 09/17/16 10:20 Dose: 25 mg Multivitamins/Minerals (Therapeutic-M Tab) 1 tab PO DAILY [facility] Last Admin: 09/17/16 10:20 Dose: 1 tab Ondansetron HCl (Zofran Inj) 4 mg IVP Q6H PRN PRN Reason: Nausea/Vomiting Pantoprazole Sodium (Protonix Ec Tab) 40 mg PO ACB [facility] Last Admin: 09/17/16 10:20 Dose: 40 mg Pramipexole Dihydrochloride (Mirapex) 0.25 mg PO TID [facility] Last Admin: 09/17/16 13:36 Dose: 0.25 mg Warfarin Sodium (Coumadin) 5 mg PO 1800 [facility] PRN Reason: Protocol Last Admin: 09/16/16 18:46 Dose: 5 mg Zinc Sulfate (Zinc Sulfate 220 Mg Cap) 220 mg PO DAILY [facility] Last Admin: 09/17/16 10:20 Dose: 220 mg - Labs Labs: 09/16/16 11:30 09/16/16 11:30 PT 27.1 Seconds (9.9-11.8) H 09/16/16 13:30 INR 2.51 (0.93-1.08) H 09/16/16 13:30 APTT 41.0 Seconds (23.7-30.8) H 09/09/16 12:00 - Constitutional Appears: Non-toxic, No Acute Distress - Head Exam Head Exam: ATRAUMATIC, NORMOCEPHALIC - Eye Exam Eye Exam: EOMI, PERRL - ENT Exam ENT Exam: Mucous Membranes Moist - Neck Exam Neck Exam: Full ROM, Normal Inspection - Respiratory Exam Respiratory Exam: Clear to Ausculation Bilateral. absent: Rales, Rhonchi, Wheezes - Cardiovascular Exam Cardiovascular Exam: REGULAR RHYTHM, +S1, +S2 - GI/Abdominal Exam GI & Abdominal Exam: Soft. absent: Tenderness - Neurological Exam Neurological Exam: Alert, Awake, Oriented x3 Neuro motor strength exam: Left Lower Extremity: 0, Right Lower Extremity: 0 - Psychiatric Exam Psychiatric exam: Normal Affect, Normal Mood - Skin Skin Exam: Dry, Normal Color Assessment and Plan - Assessment and Plan (Free Text) Assessment: Patient is a 51 year old male with no significant past medical history is 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 Patient is medically stable and awaiting final outpatient planning ESR and CRP remain elevated. Patient is continued on Abx. INR remains therapeutic. Epidural space abscess s/p lamenectomy T2-T4 on 07/07/16 - ESR, CRP both elevated. - MRI lumbar and thoracic spine - resolving osteomyelitis, discitis. abscess has resolved. - Continue meropenem for now - will follow ID recommendations on ultimate duration of therapy. - ID following - Tramadol prn for pain hematuria, asymptomatic - clear straw colored urine today - cystocopy POD 1 - haque to remain in place - hematuria has now resolved. 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 Boots in place - Baclofen 20 mg PO TID - Continue Mirapex R LE DVT s/p IVC filter placed - INR is therapeutic. Will maintain INR between 2-3 - Continue coumadin. will adjust based on INR - Will check INR and labs every other day. will continue to monitor for bleeding IVC filter in place Neurogenic bowel vs. ileus: resolved. - Full diet but will monitor closely - Dulcolax PO and RC PRN Neurogenic bladder - Haque in place draining light yellow urine multiple stage 2 pressure ulcer on sacrum and buttock improving - air mattress and continue to reposition q2H - continue multivit, zinc, vitamin C PO - Wound care is following Prophylaxis GI ppx- Protonix DVT ppx- coumadin Dispo: patient is pending placement at this time. Patient's family is actively filing patient's forms for this. <Tobin Piedra - Last Filed: 09/17/16 18:55> Objective - Vital Signs/Intake and Output Vital Signs (last 24 hours): Temp Pulse Resp BP Pulse Ox 97.9 F 59 L 22 114/63 97 09/17/16 16:27 09/17/16 16:27 09/17/16 16:27 09/17/16 16:27 09/17/16 16:27 Intake and Output: 09/17/16 09/17/16 06:59 18:59 Intake Total 800 960 Output Total 1100 1000 Balance -300 -40 - Medications Medications: Current Medications Acetaminophen (Tylenol 325mg Tab) 650 mg PO Q4H PRN PRN Reason: Pain, Mild (1-3) Last Admin: 09/17/16 14:42 Dose: 650 mg Ascorbic Acid (Vitamin C 500 Mg Tab) 500 mg PO DAILY [facility] Last Admin: 09/17/16 10:20 Dose: 500 mg Baclofen (Lioresal) 20 mg PO TID [facility] Last Admin: 09/17/16 17:22 Dose: 20 mg Bisacodyl (Dulcolax) 5 mg PO DAILY PRN PRN Reason: Constipation Meropenem 1g/NS 100mL IVPB (Meropenem 1g/Ns 100ml Ivpb) 1 gm in 100 mls @ 100 mls/hr IVPB Q8 [facility] PRN Reason: Protocol Stop: 10/02/16 17:44 Last Admin: 09/17/16 13:36 Dose: 100 mls/hr Metoprolol Tartrate (Lopressor) 25 mg PO BID [facility] Last Admin: 09/17/16 17:20 Dose: 25 mg Multivitamins/Minerals (Therapeutic-M Tab) 1 tab PO DAILY [facility] Last Admin: 09/17/16 10:20 Dose: 1 tab Ondansetron HCl (Zofran Inj) 4 mg IVP Q6H PRN PRN Reason: Nausea/Vomiting Pantoprazole Sodium (Protonix Ec Tab) 40 mg PO ACB [facility] Last Admin: 09/17/16 10:20 Dose: 40 mg Pramipexole Dihydrochloride (Mirapex) 0.25 mg PO TID [facility] Last Admin: 09/17/16 17:21 Dose: 0.25 mg Warfarin Sodium (Coumadin) 5 mg PO 1800 [facility] PRN Reason: Protocol Last Admin: 09/17/16 17:20 Dose: 5 mg Zinc Sulfate (Zinc Sulfate 220 Mg Cap) 220 mg PO DAILY [facility] Last Admin: 09/17/16 10:20 Dose: 220 mg - Labs Labs: 09/16/16 11:30 09/16/16 11:30 PT 27.1 Seconds (9.9-11.8) H 09/16/16 13:30 INR 2.51 (0.93-1.08) H 09/16/16 13:30 APTT 41.0 Seconds (23.7-30.8) H 09/09/16 12:00 Attending/Attestation - Attestation I have personally seen and examined this patient.: Yes I have fully participated in the care of the patient.: Yes I have reviewed all pertinent clinical information, including history, physical exam and plan: Yes Notes (Text): 09/17/16 18:54 attending note; Patient seen and examined with senior medical director. Patient is a 51 year old male with history of substance abuse (snorts cocaine) , tobacco, alcohol abuse was admitted for evaluation of back pain and found to have epidural abscess T1-T5, osteomyelitis, urinary retention and acute RLE DVT . S/P IVC filter on coumadin. He underwent emergent laminectomy and epidural abscess was drained. He is on meropenem as per ID, need to continue for atleast 10 weeks as per ID. Repeat MRI spine Lumbar and thoracic spine showed that epidural abscess has resolved. CRP is elevated. Patient is Paraplegic.He is on Coumadin. INR therapeutic. Patient hemoglobin is stable.Hematuria has resolved,Patient is awaiting placement Continue physical therapy.
--- NOTE | 2016-09-17 17:41 | CP.PCM.PN ---
Subjective - Date & Time of Evaluation Date of Evaluation: 09/17/16 Time of Evaluation: 11:25 - Subjective Subjective: Comfortable in bed, no fevers. Starting to get sensation in his legs, but still unable to move his legs. Objective - Vital Signs/Intake and Output Vital Signs (last 24 hours): Temp Pulse Resp BP Pulse Ox 97.7 F 51 L 22 118/74 98 09/17/16 07:30 09/17/16 07:30 09/17/16 07:30 09/17/16 07:30 09/17/16 07:30 Intake and Output: 09/17/16 09/17/16 06:59 18:59 Intake Total 800 Output Total 1100 Balance -300 - Medications Medications: Current Medications Acetaminophen (Tylenol 325mg Tab) 650 mg PO Q4H PRN PRN Reason: Pain, Mild (1-3) Last Admin: 09/15/16 15:42 Dose: 650 mg Ascorbic Acid (Vitamin C 500 Mg Tab) 500 mg PO DAILY [facility] Last Admin: 09/16/16 11:17 Dose: 500 mg Baclofen (Lioresal) 20 mg PO TID [facility] Last Admin: 09/16/16 18:46 Dose: 20 mg Bisacodyl (Dulcolax) 5 mg PO DAILY PRN PRN Reason: Constipation Meropenem 1g/NS 100mL IVPB (Meropenem 1g/Ns 100ml Ivpb) 1 gm in 100 mls @ 100 mls/hr IVPB Q8 [facility] PRN Reason: Protocol Stop: 10/02/16 17:44 Last Admin: 09/17/16 07:34 Dose: 100 mls/hr Metoprolol Tartrate (Lopressor) 25 mg PO BID [facility] Last Admin: 09/16/16 18:46 Dose: 25 mg Multivitamins/Minerals (Therapeutic-M Tab) 1 tab PO DAILY [facility] Last Admin: 09/16/16 11:16 Dose: 1 tab Ondansetron HCl (Zofran Inj) 4 mg IVP Q6H PRN PRN Reason: Nausea/Vomiting Pantoprazole Sodium (Protonix Ec Tab) 40 mg PO ACB [facility] Last Admin: 09/16/16 06:30 Dose: 40 mg Pramipexole Dihydrochloride (Mirapex) 0.25 mg PO TID [facility] Last Admin: 09/16/16 18:46 Dose: 0.25 mg Warfarin Sodium (Coumadin) 5 mg PO 1800 [facility] PRN Reason: Protocol Last Admin: 09/16/16 18:46 Dose: 5 mg Zinc Sulfate (Zinc Sulfate 220 Mg Cap) 220 mg PO DAILY [facility] Last Admin: 09/16/16 11:14 Dose: 220 mg - Labs Labs: 09/16/16 11:30 09/16/16 11:30 PT 27.1 Seconds (9.9-11.8) H 09/16/16 13:30 INR 2.51 (0.93-1.08) H 09/16/16 13:30 APTT 41.0 Seconds (23.7-30.8) H 09/09/16 12:00 - Constitutional Appears: Non-toxic, No Acute Distress - Head Exam Head Exam: NORMAL INSPECTION - ENT Exam ENT Exam: Mucous Membranes Moist - Neck Exam Neck Exam: absent: Lymphadenopathy, Meningismus - Respiratory Exam Respiratory Exam: Decreased Breath Sounds - Cardiovascular Exam Cardiovascular Exam: +S1, +S2 - GI/Abdominal Exam GI & Abdominal Exam: Soft. 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 with associated cord compression and lower extremity paralysis and neurogenic bladder S/P neurosurgery for abscess drainage and laminectomy POD #67 Possible drug reaction to Rocephin Partial small bowel obstruction, clinically improved and resolved significant smoking history alcohol abuse obesity with BMI 40 Plan continue Merrem (now on more than 9 weeks of therapy) because the CRP is still elevated (slowly trending down); will follow up weekly ESR, CRP; repeat MRI shows improvement in marrow edema in the T3-T4 area but has not resolved Will continue to follow clinically
[2016-09-18] MEDS: Meropenem 1g/NS 100mL IVPB 1 GM/100 ML PIGGYBACK IVPB SCH ×3 (05:40→21:09)
[2016-09-18] MEDS: Multivitamin With Minerals Tab PO SCH (09:40)
[2016-09-18] MEDS: Pantoprazole 40 mg EC Tab PO SCH (09:40)
--- NOTE | 2016-09-18 13:58 | CP.PCM.PN ---
<Glenn Rodriguez - Last Filed: 09/18/16 13:55> Subjective - Date & Time of Evaluation Date of Evaluation: 09/18/16 Time of Evaluation: 11:20 - Subjective Subjective: Patient seen and examined. He is participating in PT daily. He has no complaints at this time. Urine is clear. Objective - Vital Signs/Intake and Output Vital Signs (last 24 hours): Temp Pulse Resp BP Pulse Ox 97.7 F 54 L 20 136/91 H 97 09/18/16 08:23 09/18/16 08:23 09/18/16 08:23 09/18/16 09:40 09/18/16 11:39 Intake and Output: 09/18/16 09/18/16 06:59 18:59 Intake Total 740 Output Total 1300 Balance -560 - Medications Medications: Current Medications Acetaminophen (Tylenol 325mg Tab) 650 mg PO Q4H PRN PRN Reason: Pain, Mild (1-3) Last Admin: 09/17/16 14:42 Dose: 650 mg Ascorbic Acid (Vitamin C 500 Mg Tab) 500 mg PO DAILY [facility] Last Admin: 09/18/16 09:40 Dose: 500 mg Baclofen (Lioresal) 20 mg PO TID [facility] Last Admin: 09/18/16 09:40 Dose: 20 mg Bisacodyl (Dulcolax) 5 mg PO DAILY PRN PRN Reason: Constipation Meropenem 1g/NS 100mL IVPB (Meropenem 1g/Ns 100ml Ivpb) 1 gm in 100 mls @ 100 mls/hr IVPB Q8 [facility] PRN Reason: Protocol Stop: 10/02/16 17:44 Last Admin: 09/18/16 05:40 Dose: 100 mls/hr Ibuprofen (Motrin Tab) 400 mg PO Q6H PRN PRN Reason: Pain, moderate (4-7) Stop: 09/20/16 10:00 Metoprolol Tartrate (Lopressor) 25 mg PO BID [facility] Last Admin: 09/18/16 09:40 Dose: 25 mg Multivitamins/Minerals (Therapeutic-M Tab) 1 tab PO DAILY [facility] Last Admin: 09/18/16 09:40 Dose: 1 tab Ondansetron HCl (Zofran Inj) 4 mg IVP Q6H PRN PRN Reason: Nausea/Vomiting Pantoprazole Sodium (Protonix Ec Tab) 40 mg PO ACB [facility] Last Admin: 09/18/16 09:40 Dose: 40 mg Pramipexole Dihydrochloride (Mirapex) 0.25 mg PO TID [facility] Last Admin: 09/18/16 09:40 Dose: 0.25 mg Warfarin Sodium (Coumadin) 5 mg PO 1800 [facility] PRN Reason: Protocol Last Admin: 09/17/16 17:20 Dose: 5 mg Zinc Sulfate (Zinc Sulfate 220 Mg Cap) 220 mg PO DAILY [facility] Last Admin: 09/18/16 09:40 Dose: 220 mg - Labs Labs: 09/16/16 11:30 09/16/16 11:30 PT 27.1 Seconds (9.9-11.8) H 09/16/16 13:30 INR 2.51 (0.93-1.08) H 09/16/16 13:30 APTT 41.0 Seconds (23.7-30.8) H 09/09/16 12:00 - Constitutional Appears: Non-toxic, No Acute Distress - Head Exam Head Exam: ATRAUMATIC, NORMOCEPHALIC - Eye Exam Eye Exam: EOMI, PERRL - ENT Exam ENT Exam: Mucous Membranes Moist - Neck Exam Neck Exam: Full ROM, Normal Inspection - Respiratory Exam Respiratory Exam: Clear to Ausculation Bilateral. absent: Rales, Rhonchi, Wheezes - Cardiovascular Exam Cardiovascular Exam: REGULAR RHYTHM, +S1, +S2 - GI/Abdominal Exam GI & Abdominal Exam: Soft, Normal Bowel Sounds. 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 Patient is medically stable and awaiting final outpatient planning ESR and CRP remain elevated. Patient is continued on Abx. INR remains therapeutic. Epidural space abscess s/p lamenectomy T2-T4 on 07/07/16 - ESR, CRP both elevated. - MRI lumbar and thoracic spine - resolving osteomyelitis, discitis. abscess has resolved. - Continue meropenem for now - will follow ID recommendations on ultimate duration of therapy. - ID following - Tramadol prn for pain hematuria, asymptomatic - clear straw colored urine today - cystocopy POD 1 - haque to remain in place - hematuria has now resolved. 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 Boots in place - Baclofen 20 mg PO TID - Continue Mirapex R LE DVT s/p IVC filter placed - INR is therapeutic. Will maintain INR between 2-3 - Continue coumadin. will adjust based on INR - Will check INR and labs every other day. will continue to monitor for bleeding IVC filter in place Neurogenic bowel vs. ileus: resolved. - Full diet but will monitor closely - Dulcolax PO and RC PRN Neurogenic bladder - Haque in place draining light yellow urine multiple stage 2 pressure ulcer on sacrum and buttock improving - air mattress and continue to reposition q2H - continue multivit, zinc, vitamin C PO - Wound care is following Prophylaxis GI ppx- Protonix DVT ppx- coumadin Dispo:Patient was denies medicare today. He will remain as an inpatient until further planning can be arranged. <Tobin Piedra - Last Filed: 09/18/16 16:14> Objective - Vital Signs/Intake and Output Vital Signs (last 24 hours): Temp Pulse Resp BP Pulse Ox 97.7 F 54 L 20 136/91 H 97 09/18/16 08:23 09/18/16 08:23 09/18/16 08:23 09/18/16 09:40 09/18/16 11:39 Intake and Output: 09/18/16 09/18/16 06:59 18:59 Intake Total 740 640 Output Total 1300 600 Balance -560 40 - Medications Medications: Current Medications Acetaminophen (Tylenol 325mg Tab) 650 mg PO Q4H PRN PRN Reason: Pain, Mild (1-3) Last Admin: 09/17/16 14:42 Dose: 650 mg Ascorbic Acid (Vitamin C 500 Mg Tab) 500 mg PO DAILY [facility] Last Admin: 09/18/16 09:40 Dose: 500 mg Baclofen (Lioresal) 20 mg PO TID [facility] Last Admin: 09/18/16 14:02 Dose: 20 mg Bisacodyl (Dulcolax) 5 mg PO DAILY PRN PRN Reason: Constipation Meropenem 1g/NS 100mL IVPB (Meropenem 1g/Ns 100ml Ivpb) 1 gm in 100 mls @ 100 mls/hr IVPB Q8 [facility] PRN Reason: Protocol Stop: 10/02/16 17:44 Last Admin: 09/18/16 14:00 Dose: 100 mls/hr Ibuprofen (Motrin Tab) 400 mg PO Q6H PRN PRN Reason: Pain, moderate (4-7) Stop: 09/20/16 10:00 Metoprolol Tartrate (Lopressor) 25 mg PO BID [facility] Last Admin: 09/18/16 09:40 Dose: 25 mg Multivitamins/Minerals (Therapeutic-M Tab) 1 tab PO DAILY [facility] Last Admin: 09/18/16 09:40 Dose: 1 tab Ondansetron HCl (Zofran Inj) 4 mg IVP Q6H PRN PRN Reason: Nausea/Vomiting Pantoprazole Sodium (Protonix Ec Tab) 40 mg PO ACB [facility] Last Admin: 09/18/16 09:40 Dose: 40 mg Pramipexole Dihydrochloride (Mirapex) 0.25 mg PO TID [facility] Last Admin: 09/18/16 14:02 Dose: 0.25 mg Warfarin Sodium (Coumadin) 5 mg PO 1800 [facility] PRN Reason: Protocol Last Admin: 09/17/16 17:20 Dose: 5 mg Zinc Sulfate (Zinc Sulfate 220 Mg Cap) 220 mg PO DAILY [facility] Last Admin: 09/18/16 09:40 Dose: 220 mg - Labs Labs: 09/16/16 11:30 09/16/16 11:30 PT 27.1 Seconds (9.9-11.8) H 09/16/16 13:30 INR 2.51 (0.93-1.08) H 09/16/16 13:30 APTT 41.0 Seconds (23.7-30.8) H 09/09/16 12:00 Attending/Attestation - Attestation I have personally seen and examined this patient.: Yes I have fully participated in the care of the patient.: Yes I have reviewed all pertinent clinical information, including history, physical exam and plan: Yes Notes (Text): 09/18/16 16:08 attending note; Patient seen and examined with nuclear medicine medical director. Patient is a 51 year old male with history of substance abuse (snorts cocaine), tobacco, alcohol abuse was admitted for evaluation of back pain and found to have epidural abscess T1-T5, osteomyelitis, urinary retention and acute RLE DVT. S/P IVC filter on coumadin. He underwent emergent laminectomy and epidural abscess was drained. He is on meropenem. Repeat MRI spine Lumbar and thoracic spine showed that epidural abscess has resolved. CRP is elevated. Patient is Paraplegic.He is on Coumadin. INR therapeutic. Patient hemoglobin is stable.Hematuria has resolved,Patient is awaiting placement Continue physical therapy. case discussed with social services technician in detail for discharge planning. 09/18/16 16:12
--- NOTE | 2016-09-18 18:46 | PN ---
DATE: 09/18/2016 The patient is in bed in no acute distress, nontoxic. PHYSICAL EXAMINATION: VITAL SIGNS: Temperature is 98, blood pressure is 111/60, respiratory rate of 16. HEENT: Unremarkable. NECK: Supple. LUNGS: Have decreased breath sounds. HEART: Normal S1, S2. ABDOMEN: Soft, nontender. LABORATORY DATA: Reveals a white count of 6.6, hemoglobin of 13 and sed rate of 51, BUN of 24, creat inine of 0.6. C-reactive protein is 4.58. Urinalysis is noted. Serology HIV is negative. ASSESSMENT AND PLAN: This is a 51-year-old male with epidural abscess secondary to Streptococcus pne umoniae, associated cord compression and lower extremity paralysis, neurogenic bladder, status post l aminectomy and abscess drainage, post-procedure day #68 and currently on meropenem. We will follow w madeleine you. Colt Coronel MD cc: 350 TT: 09/18/2016 18:46:01 Confirmation # [id number] Dictation # [id number] cristina
[2016-09-19] MEDS: Meropenem 1g/NS 100mL IVPB 1 GM/100 ML PIGGYBACK IVPB SCH ×3 (05:51→22:39)
[2016-09-19] MEDS: Multivitamin With Minerals Tab PO SCH (09:24)
[2016-09-19] MEDS: Pantoprazole 40 mg EC Tab PO SCH (09:28)
--- NOTE | 2016-09-19 10:23 | PN ---
DATE: 09/19/2016 The patient is in bed in no acute distress, nontoxic. PHYSICAL EXAMINATION: VITAL SIGNS: Temperature is 97, blood pressure is 150/60, respiratory rate of 20. HEENT: Unremarkable. NECK: Supple. LUNGS: Decreased breath sounds. HEART: Normal S1, S2. ABDOMEN: Soft. LABORATORY EXAMINATION: Reveals a white count of 6, hemoglobin of 13, platelets of 177. BUN of 24, creatinine of 0.6. Urinalysis is noted. HIV is negative. ASSESSMENT AND PLAN: A 51-year-old male with epidural abscess secondary to Streptococcus pneumoniae associated with a cord compression, lower extremity paralysis, neurogenic bladder, status post luciano ctomy and abscess drainage, post-procedure day #69. Currently on meropenem. We will renew the merop enem. The last C-reactive protein was 09/16 at 4.58 and there is a downward trend, probably the best indicator of the three, MRI, sed rate and C-reactive protein. Colt Coronel MD cc: 350 TT: 09/19/2016 10:22:39 Confirmation # [id number] Dictation # [id number] tn
--- NOTE | 2016-09-19 13:39 | CP.PCM.PN ---
<Glenn Rodriguez - Last Filed: 09/19/16 13:36> Subjective - Date & Time of Evaluation Date of Evaluation: 09/19/16 Time of Evaluation: 11:20 - Subjective Subjective: Patient seen and examined. He is participating in daily PT. No complaints at this time. Urine is clear. Discharge planning is ongoing. Objective - Vital Signs/Intake and Output Vital Signs (last 24 hours): Temp Pulse Resp BP Pulse Ox 97.6 F 52 L 20 136/85 95 09/19/16 08:21 09/19/16 08:21 09/19/16 08:21 09/19/16 09:25 09/19/16 12:17 Intake and Output: 09/19/16 09/19/16 06:59 18:59 Intake Total 1140 Output Total 1000 Balance 140 - Medications Medications: Current Medications Acetaminophen (Tylenol 325mg Tab) 650 mg PO Q4H PRN PRN Reason: Pain, Mild (1-3) Last Admin: 09/17/16 14:42 Dose: 650 mg Ascorbic Acid (Vitamin C 500 Mg Tab) 500 mg PO DAILY [facility] Last Admin: 09/19/16 09:24 Dose: 500 mg Baclofen (Lioresal) 20 mg PO TID [facility] Last Admin: 09/19/16 13:21 Dose: 20 mg Bisacodyl (Dulcolax) 5 mg PO DAILY PRN PRN Reason: Constipation Meropenem 1g/NS 100mL IVPB (Meropenem 1g/Ns 100ml Ivpb) 1 gm in 100 mls @ 100 mls/hr IVPB Q8 [facility] PRN Reason: Protocol Stop: 10/02/16 17:44 Last Admin: 09/19/16 13:21 Dose: 100 mls/hr Ibuprofen (Motrin Tab) 400 mg PO Q6H PRN PRN Reason: Pain, moderate (4-7) Stop: 09/20/16 10:00 Last Admin: 09/18/16 17:32 Dose: 400 mg Metoprolol Tartrate (Lopressor) 25 mg PO BID [facility] Last Admin: 09/19/16 09:25 Dose: 25 mg Multivitamins/Minerals (Therapeutic-M Tab) 1 tab PO DAILY [facility] Last Admin: 09/19/16 09:24 Dose: 1 tab Ondansetron HCl (Zofran Inj) 4 mg IVP Q6H PRN PRN Reason: Nausea/Vomiting Pantoprazole Sodium (Protonix Ec Tab) 40 mg PO ACB [facility] Last Admin: 09/19/16 09:28 Dose: 40 mg Pramipexole Dihydrochloride (Mirapex) 0.25 mg PO TID [facility] Last Admin: 09/19/16 13:21 Dose: 0.25 mg Warfarin Sodium (Coumadin) 5 mg PO 1800 [facility] PRN Reason: Protocol Last Admin: 09/18/16 17:30 Dose: 5 mg Zinc Sulfate (Zinc Sulfate 220 Mg Cap) 220 mg PO DAILY [facility] Last Admin: 09/19/16 09:25 Dose: 220 mg - Labs Labs: 09/16/16 11:30 09/16/16 11:30 PT 27.1 Seconds (9.9-11.8) H 09/16/16 13:30 INR 2.51 (0.93-1.08) H 09/16/16 13:30 APTT 41.0 Seconds (23.7-30.8) H 09/09/16 12:00 - Constitutional Appears: Non-toxic, No Acute Distress - Head Exam Head Exam: ATRAUMATIC, NORMOCEPHALIC - Eye Exam Eye Exam: EOMI, PERRL - ENT Exam ENT Exam: Mucous Membranes Moist - Respiratory Exam Respiratory Exam: Clear to Ausculation Bilateral. absent: Rales, Rhonchi, Wheezes - Cardiovascular Exam Cardiovascular Exam: REGULAR RHYTHM, +S1, +S2 - GI/Abdominal Exam GI & Abdominal Exam: Soft, Normal Bowel Sounds. 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 Patient is medically stable and awaiting final outpatient planning ESR and CRP remain elevated but trending down. Will continue abx per ID. Continue to follow course Epidural space abscess s/p lamenectomy T2-T4 on 07/07/16 - ESR, CRP both elevated but trending down - MRI lumbar and thoracic spine - resolving osteomyelitis, discitis. abscess has resolved. - Continue meropenem for now - will follow ID recommendations on ultimate duration of therapy. - ID following - Tramadol prn for pain hematuria, asymptomatic - clear straw colored urine today - cystocopy POD 1 - haque to remain in place - hematuria has now resolved. 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 Boots in place - Baclofen 20 mg PO TID - Continue Mirapex R LE DVT s/p IVC filter placed - INR is therapeutic. Will maintain INR between 2-3 - Continue coumadin. will adjust based on INR - Will check INR and labs every other day. will continue to monitor for bleeding IVC filter in place Neurogenic bowel vs. ileus: resolved. - Full diet but will monitor closely - Dulcolax PO and RC PRN Neurogenic bladder - Haque in place draining light yellow urine multiple stage 2 pressure ulcer on sacrum and buttock improving - air mattress and continue to reposition q2H - continue multivit, zinc, vitamin C PO - Wound care is following Prophylaxis GI ppx- Protonix DVT ppx- coumadin Dispo:Patient was denies medicare today. He will remain as an inpatient until further planning can be arranged. <Edgardo GUTIERREZ,Gigihalsteadsergio - Last Filed: 09/19/16 15:11> Objective - Vital Signs/Intake and Output Vital Signs (last 24 hours): Temp Pulse Resp BP Pulse Ox 97.6 F 52 L 20 136/85 95 09/19/16 08:21 09/19/16 08:21 09/19/16 08:21 09/19/16 09:25 09/19/16 12:17 Intake and Output: 09/19/16 09/19/16 06:59 18:59 Intake Total 1140 Output Total 1000 Balance 140 - Medications Medications: Current Medications Acetaminophen (Tylenol 325mg Tab) 650 mg PO Q4H PRN PRN Reason: Pain, Mild (1-3) Last Admin: 09/17/16 14:42 Dose: 650 mg Ascorbic Acid (Vitamin C 500 Mg Tab) 500 mg PO DAILY [facility] Last Admin: 09/19/16 09:24 Dose: 500 mg Baclofen (Lioresal) 20 mg PO TID [facility] Last Admin: 09/19/16 13:21 Dose: 20 mg Bisacodyl (Dulcolax) 5 mg PO DAILY PRN PRN Reason: Constipation Meropenem 1g/NS 100mL IVPB (Meropenem 1g/Ns 100ml Ivpb) 1 gm in 100 mls @ 100 mls/hr IVPB Q8 [facility] PRN Reason: Protocol Stop: 10/02/16 17:44 Last Admin: 09/19/16 13:21 Dose: 100 mls/hr Ibuprofen (Motrin Tab) 400 mg PO Q6H PRN PRN Reason: Pain, moderate (4-7) Stop: 09/20/16 10:00 Last Admin: 09/18/16 17:32 Dose: 400 mg Metoprolol Tartrate (Lopressor) 25 mg PO BID [facility] Last Admin: 09/19/16 09:25 Dose: 25 mg Multivitamins/Minerals (Therapeutic-M Tab) 1 tab PO DAILY [facility] Last Admin: 09/19/16 09:24 Dose: 1 tab Ondansetron HCl (Zofran Inj) 4 mg IVP Q6H PRN PRN Reason: Nausea/Vomiting Pantoprazole Sodium (Protonix Ec Tab) 40 mg PO ACB [facility] Last Admin: 09/19/16 09:28 Dose: 40 mg Pramipexole Dihydrochloride (Mirapex) 0.25 mg PO TID [facility] Last Admin: 09/19/16 13:21 Dose: 0.25 mg Warfarin Sodium (Coumadin) 5 mg PO 1800 [facility] PRN Reason: Protocol Last Admin: 09/18/16 17:30 Dose: 5 mg Zinc Sulfate (Zinc Sulfate 220 Mg Cap) 220 mg PO DAILY [facility] Last Admin: 09/19/16 09:25 Dose: 220 mg - Labs Labs: 09/16/16 11:30 09/16/16 11:30 PT 27.1 Seconds (9.9-11.8) H 09/16/16 13:30 INR 2.51 (0.93-1.08) H 09/16/16 13:30 APTT 41.0 Seconds (23.7-30.8) H 09/09/16 12:00 Attending/Attestation - Attestation I have personally seen and examined this patient.: Yes I have fully participated in the care of the patient.: Yes I have reviewed all pertinent clinical information, including history, physical exam and plan: Yes Notes (Text): 09/19/16 15:09 Patient was seen and examined with biomedical manager .Agreed with resident assessment and plan. 51 year old male with history of drug abuse , tobacco, alcohol abuse was admitted for evaluation of back pain and found to have epidural abscess T1-T5, osteomyelitis, urinary retention and acute RLE DVT .He is SP IVC filter on coumadin. He underwent emergent laminectomy and epidural abscess was drained. He is on meropenem , cultures grew Streptococus Pneumnia.. Repeat MRI spine Lumbar and thoracic spine showed that epidural abscess has resolved. CRP is still elevated but is trending down.Patient is Paraplegic.He is on Coumadin. INR therapeutic. Patient hemoglobin is stable.Hematuria has resolved, Patient is awaiting placement.We will continue physical therapy. Management plan was discussed in detail with patient Education was provided
[2016-09-20] MEDS: Meropenem 1g/NS 100mL IVPB 1 GM/100 ML PIGGYBACK IVPB SCH ×3 (06:35→22:10)
[2016-09-20] MEDS: Pantoprazole 40 mg EC Tab PO SCH (08:02)
[2016-09-20] MEDS: Multivitamin With Minerals Tab PO SCH (09:26)
--- NOTE | 2016-09-20 10:55 | CP.PCM.PN ---
<Vicki Sherwood - Last Filed: 09/20/16 10:55> Subjective - Date & Time of Evaluation Date of Evaluation: 09/20/16 Time of Evaluation: 10:20 - Subjective Subjective: Pt was seen and examined at bedside. No acute complaints at this time. No acute or adverse events overnight as per nursing staff. Pt has haque in place, mild hematuria noted. He is tolerating diet and participating in PT. Pt denied fever , chills, sob, chest pains, abdominal pains, n/v/d/c. Objective - Vital Signs/Intake and Output Vital Signs (last 24 hours): Temp Pulse Resp BP Pulse Ox 98.0 F 64 18 157/84 H 97 09/20/16 08:00 09/20/16 09:26 09/20/16 08:00 09/20/16 09:26 09/20/16 08:00 Intake and Output: 09/20/16 09/20/16 06:59 18:59 Intake Total 660 Output Total 800 Balance -140 - Medications Medications: Current Medications Acetaminophen (Tylenol 325mg Tab) 650 mg PO Q4H PRN PRN Reason: Pain, Mild (1-3) Last Admin: 09/17/16 14:42 Dose: 650 mg Ascorbic Acid (Vitamin C 500 Mg Tab) 500 mg PO DAILY [facility] Last Admin: 09/20/16 09:25 Dose: 500 mg Baclofen (Lioresal) 20 mg PO TID [facility] Last Admin: 09/20/16 09:26 Dose: 20 mg Bisacodyl (Dulcolax) 5 mg PO DAILY PRN PRN Reason: Constipation Meropenem 1g/NS 100mL IVPB (Meropenem 1g/Ns 100ml Ivpb) 1 gm in 100 mls @ 100 mls/hr IVPB Q8 [facility] PRN Reason: Protocol Stop: 10/02/16 17:44 Last Admin: 09/20/16 06:35 Dose: 100 mls/hr Metoprolol Tartrate (Lopressor) 25 mg PO BID [facility] Last Admin: 09/20/16 09:26 Dose: 25 mg Multivitamins/Minerals (Therapeutic-M Tab) 1 tab PO DAILY [facility] Last Admin: 09/20/16 09:26 Dose: 1 tab Ondansetron HCl (Zofran Inj) 4 mg IVP Q6H PRN PRN Reason: Nausea/Vomiting Pantoprazole Sodium (Protonix Ec Tab) 40 mg PO ACB [facility] Last Admin: 09/20/16 08:02 Dose: 40 mg Pramipexole Dihydrochloride (Mirapex) 0.25 mg PO TID [facility] Last Admin: 09/20/16 09:25 Dose: 0.25 mg Warfarin Sodium (Coumadin) 5 mg PO 1800 [facility] PRN Reason: Protocol Last Admin: 09/19/16 18:00 Dose: 5 mg Zinc Sulfate (Zinc Sulfate 220 Mg Cap) 220 mg PO DAILY [facility] Last Admin: 09/20/16 09:26 Dose: 220 mg - Labs Labs: 09/16/16 11:30 09/16/16 11:30 PT 27.1 Seconds (9.9-11.8) H 09/16/16 13:30 INR 2.51 (0.93-1.08) H 09/16/16 13:30 APTT 41.0 Seconds (23.7-30.8) H 09/09/16 12:00 - Constitutional Appears: No Acute Distress - Head Exam Head Exam: ATRAUMATIC, NORMAL INSPECTION, NORMOCEPHALIC - Eye Exam Eye Exam: EOMI, Normal appearance, PERRL Pupil Exam: NORMAL ACCOMODATION, PERRL - ENT Exam ENT Exam: Mucous Membranes Moist, Normal Exam - Neck Exam Neck Exam: Full ROM, Normal Inspection. absent: Lymphadenopathy - Respiratory Exam Respiratory Exam: Clear to Ausculation Bilateral, NORMAL BREATHING PATTERN - Cardiovascular Exam Cardiovascular Exam: REGULAR RHYTHM, +S1, +S2. absent: Murmur - GI/Abdominal Exam GI & Abdominal Exam: Soft, Normal Bowel Sounds. 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 Patient is medically stable and awaiting final outpatient planning ESR and CRP remain elevated but trending down. Will continue abx per ID. Continue to follow course Epidural space abscess s/p lamenectomy T2-T4 on 07/07/16 - ESR, CRP both elevated but trending down - MRI lumbar and thoracic spine - resolving osteomyelitis, discitis. abscess has resolved. - Continue meropenem for now - will follow ID recommendations on ultimate duration of therapy. - ID following - Tramadol prn for pain hematuria, asymptomatic - clear pink colored urine today - had cystoscopy performed - haque to remain in place - will consider adjusting coumadin dosage. 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 Boots in place - Baclofen 20 mg PO TID - Continue Mirapex R LE DVT s/p IVC filter placed - INR is therapeutic. Will maintain INR between 2-3 - Continue coumadin. will adjust based on INR - Will check INR and labs every other day. will continue to monitor for bleeding - IVC filter in place Neurogenic bowel vs. ileus: resolved. - Full diet but will monitor closely - Dulcolax PO and RC PRN Neurogenic bladder - Haque in place draining light yellow urine multiple stage 2 pressure ulcer on sacrum and buttock - improving - air mattress and continue to reposition q2H - continue multivit, zinc, vitamin C PO - Wound care is following Prophylaxis GI ppx- Protonix DVT ppx- coumadin Dispo: Patient was denies medicare today. He will remain as an inpatient until further planning can be arranged. Seen reviewed and discussed with Dr. Piedra <Tobin Piedra - Last Filed: 09/20/16 15:48> Objective - Vital Signs/Intake and Output Vital Signs (last 24 hours): Temp Pulse Resp BP Pulse Ox 98.0 F 64 18 157/84 H 97 09/20/16 08:00 09/20/16 09:26 09/20/16 08:00 09/20/16 09:26 09/20/16 08:00 Intake and Output: 09/20/16 09/20/16 06:59 18:59 Intake Total 660 840 Output Total 800 550 Balance -140 290 - Medications Medications: Current Medications Acetaminophen (Tylenol 325mg Tab) 650 mg PO Q4H PRN PRN Reason: Pain, Mild (1-3) Last Admin: 09/17/16 14:42 Dose: 650 mg Ascorbic Acid (Vitamin C 500 Mg Tab) 500 mg PO DAILY [facility] Last Admin: 09/20/16 09:25 Dose: 500 mg Baclofen (Lioresal) 20 mg PO TID [facility] Last Admin: 09/20/16 14:24 Dose: 20 mg Bisacodyl (Dulcolax) 5 mg PO DAILY PRN PRN Reason: Constipation Meropenem 1g/NS 100mL IVPB (Meropenem 1g/Ns 100ml Ivpb) 1 gm in 100 mls @ 100 mls/hr IVPB Q8 [facility] PRN Reason: Protocol Stop: 10/02/16 17:44 Last Admin: 09/20/16 14:24 Dose: 100 mls/hr Metoprolol Tartrate (Lopressor) 25 mg PO BID [facility] Last Admin: 09/20/16 09:26 Dose: 25 mg Multivitamins/Minerals (Therapeutic-M Tab) 1 tab PO DAILY [facility] Last Admin: 09/20/16 09:26 Dose: 1 tab Ondansetron HCl (Zofran Inj) 4 mg IVP Q6H PRN PRN Reason: Nausea/Vomiting Pantoprazole Sodium (Protonix Ec Tab) 40 mg PO ACB [facility] Last Admin: 09/20/16 08:02 Dose: 40 mg Pramipexole Dihydrochloride (Mirapex) 0.25 mg PO TID [facility] Last Admin: 09/20/16 14:24 Dose: 0.25 mg Warfarin Sodium (Coumadin) 3 mg PO 1800 [facility] PRN Reason: Protocol Zinc Sulfate (Zinc Sulfate 220 Mg Cap) 220 mg PO DAILY [facility] Last Admin: 09/20/16 09:26 Dose: 220 mg - Labs Labs: 09/20/16 11:45 09/20/16 11:45 PT 31.0 Seconds (9.9-11.8) H* 09/20/16 11:45 INR 2.87 (0.93-1.08) H 09/20/16 11:45 APTT 41.0 Seconds (23.7-30.8) H 09/09/16 12:00 Attending/Attestation - Attestation I have personally seen and examined this patient.: Yes I have fully participated in the care of the patient.: Yes I have reviewed all pertinent clinical information, including history, physical exam and plan: Yes Notes (Text): 09/20/16 15:46 attending note; Patient seen and examined with medical supervisor. Patient is a 51 year old male with history of substance abuse (snorts cocaine), tobacco, alcohol abuse was admitted for evaluation of back pain and found to have epidural abscess T1-T5, osteomyelitis, urinary retention and acute RLE DVT . S/P IVC filter on coumadin. He underwent emergent laminectomy and epidural abscess was drained. He is on meropenem. Repeat MRI spine Lumbar and thoracic spine showed that epidural abscess has resolved. CRP is improving. Patient is Paraplegic. Patient hemoglobin is stable. pinkish urine cleared after flushing.Coumadin dosage decreased. Recent cystoscopy 2 weeks ago. Will monitor closely. Patient is awaiting placement. Continue physical therapy.
[2016-09-20 11:56] LABS: HEMOGLOBIN 12.9 gm/dL (14.0-18.0); MEAN CELL VOLUME 87.1 fL (80.0-105.0); MEAN CORPUSCULAR HEMOGLOBIN 28.8 pg (25.0-35.0); MEAN CORPUSCULAR HGB CONC 33.1 g/dl (31.0-37.0); MEAN PLATELET VOLUME 12.1 fl (7.0-11.0); RBC 4.48 10^6/uL (3.5-6.1); RED CELL DISTRIBUTION WIDTH 13.9 % (11.5-14.5); WHITE BLOOD COUNT 5.8 10^3/ul (4.5-11.0)
[2016-09-20 12:04] LABS: INR 2.87 (0.93-1.08)
[2016-09-20 12:19] LABS: BLOOD UREA NITROGEN 21 mg/dL (7-21); CALCIUM 9.4 mg/dL (8.4-10.5); GFR AFRICAN-AMERICAN > 60; GFR NON-AFRICAN AMERICAN > 60
--- NOTE | 2016-09-20 14:14 | PN ---
DATE: 09/20/2016 The patient is in bed in no acute distress, nontoxic. PHYSICAL EXAMINATION: VITAL SIGNS: Temperature is 98, blood pressure is 150/80, respiratory rate of 18, heart rate of 52. HEENT: Unremarkable. NECK: Supple. LUNGS: Have decreased breath sounds. HEART: Normal S1, S2. ABDOMEN: Soft. LABORATORY DATA: Reveals a white count of 5.8, hemoglobin of 12 and platelets of 162, sed rate is 51 . Chemistries reveal the patient's BUN of 21, creatinine of 0.6. C-reactive protein on is 4.5, it appears to be improving. The last MRI that was done of the spine was on 09/08. Review of the orders reveals the patient to be on meropenem. ASSESSMENT AND PLAN: This is a 51-year-old male with epidural abscess secondary to Streptococcus pne umoniae, associated with cord compression and lower extremity paralysis, neurogenic bladder, status p ost laminectomy and abscess drainage post-procedure day #70, meropenem. Continue to monitor once wee kly CBC, SMA-18, sed rate, C-reactive protein and should probably have another MRI within the next we ek. Colt Coronel MD cc: 350 TT: 09/20/2016 14:13:24 Confirmation # [id number] Dictation # [id number] cristina
[2016-09-20] MEDS ORDERED: Bisacodyl 5mg EC Tab PO PRN ×2 (19:07)
[2016-09-21] MEDS: Meropenem 1g/NS 100mL IVPB 1 GM/100 ML PIGGYBACK IVPB SCH ×3 (05:44→21:25)
[2016-09-21 07:03] LABS: INR 2.47 (0.93-1.08); PROTHROMBIN TIME 26.7 Seconds (9.9-11.8)
[2016-09-21] MEDS ORDERED: Pantoprazole 40 mg EC Tab PO SCH (07:30)
[2016-09-21] MEDS ORDERED: Multivitamin With Minerals Tab PO SCH (10:00)
--- NOTE | 2016-09-21 12:48 | PN ---
DATE: 09/21/2016 The patient is in bed, in no acute distress, nontoxic. PHYSICAL EXAMINATION: VITAL SIGNS: Temperature is 98, blood pressure is 120/70, respiratory rate of 16. HEENT: Unremarkable. NECK: Supple. LUNGS: Have decreased breath sounds. HEART: Normal S1, S2. ABDOMEN: Soft, nontender. LABORATORY EXAMINATION: Reveals the patient to have white count of 5.8, hemoglobin of 12, platelets of 162. BUN of 21, creatinine of . C-reactive protein is noted. ASSESSMENT AND PLAN: A 51-year-old male with epidural abscess secondary to Streptococcus pneumoniae associated with a cord compression and lower extremity paralysis, neurogenic bladder, status post quinatna inectomy and abscess drainage, post-procedure day #71. Currently on meropenem. Follow repeat CBC, S MA-18, sed rate, C-reactive protein and will most likely need another MRI since the last spine MRI wa s 09/08, which was 13 days ago. We will follow with you. Colt Coronel MD cc: 350 TT: 09/21/2016 12:47:48 Confirmation # [id number] Dictation # [id number] en
[2016-09-22] MEDS: Meropenem 1g/NS 100mL IVPB 1 GM/100 ML PIGGYBACK IVPB SCH ×3 (06:04→21:24)
[2016-09-22] MEDS: Pantoprazole 40 mg EC Tab PO SCH (10:01)
[2016-09-22] MEDS: Multivitamin With Minerals Tab PO SCH (10:01)
--- NOTE | 2016-09-22 12:16 | CP.PCM.PN ---
<Glenn Rodriguez - Last Filed: 09/22/16 12:13> Subjective - Date & Time of Evaluation Date of Evaluation: 09/22/16 Time of Evaluation: 12:13 - Subjective Subjective: Patient seen and examined. He is participating in PT daily. Urine in haque bag is clear. Discharge planning is on going. Objective - Vital Signs/Intake and Output Vital Signs (last 24 hours): Temp Pulse Resp BP Pulse Ox 98.4 F 60 16 130/62 97 09/22/16 08:00 09/22/16 10:03 09/22/16 08:00 09/22/16 10:03 09/22/16 08:00 Intake and Output: 09/22/16 09/22/16 06:59 18:59 Output Total 600 700 Balance -600 -700 - Medications Medications: Current Medications Acetaminophen (Tylenol 325mg Tab) 650 mg PO Q4H PRN PRN Reason: Pain, Mild (1-3) Ascorbic Acid (Vitamin C 500 Mg Tab) 500 mg PO DAILY [facility] Last Admin: 09/22/16 10:02 Dose: 500 mg Baclofen (Lioresal) 20 mg PO TID [facility] Last Admin: 09/22/16 10:02 Dose: 20 mg Bisacodyl (Dulcolax) 5 mg PO DAILY PRN PRN Reason: Constipation Meropenem 1g/NS 100mL IVPB (Meropenem 1g/Ns 100ml Ivpb) 1 gm in 100 mls @ 100 mls/hr IVPB Q8 [facility] PRN Reason: Protocol Stop: 10/02/16 14:00 Last Admin: 09/22/16 06:04 Dose: 100 mls/hr Metoprolol Tartrate (Lopressor) 25 mg PO BID [facility] Last Admin: 09/22/16 10:03 Dose: 25 mg Multivitamins/Minerals (Therapeutic-M Tab) 1 tab PO DAILY [facility] Last Admin: 09/22/16 10:01 Dose: 1 tab Ondansetron HCl (Zofran Inj) 4 mg IVP Q6H PRN PRN Reason: Nausea/Vomiting Pantoprazole Sodium (Protonix Ec Tab) 40 mg PO ACB [facility] Last Admin: 09/22/16 10:01 Dose: 40 mg Pramipexole Dihydrochloride (Mirapex) 0.25 mg PO TID [facility] Last Admin: 09/22/16 10:02 Dose: 0.25 mg Warfarin Sodium (Coumadin) 3 mg PO 1800 [facility] PRN Reason: Protocol Last Admin: 09/21/16 18:10 Dose: 3 mg Zinc Sulfate (Zinc Sulfate 220 Mg Cap) 220 mg PO DAILY [facility] Last Admin: 09/22/16 10:01 Dose: 220 mg - Labs Labs: 09/20/16 11:45 09/20/16 11:45 PT 26.7 Seconds (9.9-11.8) H 09/21/16 06:35 INR 2.47 (0.93-1.08) H 09/21/16 06:35 APTT 41.0 Seconds (23.7-30.8) H 09/09/16 12:00 - Constitutional Appears: Non-toxic, No Acute Distress - Head Exam Head Exam: ATRAUMATIC, NORMOCEPHALIC - Eye Exam Eye Exam: EOMI, PERRL - ENT Exam ENT Exam: Mucous Membranes Moist - Neck Exam Neck Exam: Full ROM, Normal Inspection - Respiratory Exam Respiratory Exam: Clear to Ausculation Bilateral. absent: Rales, Rhonchi, Wheezes - Cardiovascular Exam Cardiovascular Exam: REGULAR RHYTHM, +S1, +S2 - GI/Abdominal Exam GI & Abdominal Exam: Soft, Normal Bowel Sounds - Extremities Exam Extremities Exam: Full ROM. absent: Calf Tenderness, Pedal Edema - Neurological Exam Neurological Exam: Alert, Awake, Oriented x3 Neuro motor strength exam: Left Lower Extremity: 0, Right Lower Extremity: 0 - Psychiatric Exam Psychiatric exam: Normal Affect, Normal Mood - Skin Skin Exam: Dry, Warm Assessment and Plan - Assessment and Plan (Free Text) Assessment: Patient is a 51 year old male with no significant past medical history is 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 Patient is medically stable and awaiting final outpatient planning ESR and CRP remain elevated but trending down. Will continue abx per ID. Continue to follow course Epidural space abscess s/p lamenectomy T2-T4 on 07/07/16 - ESR, CRP both elevated but trending down - MRI lumbar and thoracic spine - resolving osteomyelitis, discitis. abscess has resolved. - Continue meropenem for now - will follow ID recommendations on ultimate duration of therapy. - ID following - Tramadol prn for pain hematuria, asymptomatic - clear pink colored urine today - had cystoscopy performed - haque to remain in place - will consider adjusting coumadin dosage. 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 Boots in place - Baclofen 20 mg PO TID - Continue Mirapex R LE DVT s/p IVC filter placed - INR is therapeutic. Will maintain INR between 2-3 - Continue coumadin. will adjust based on INR - Will check INR and labs every other day. will continue to monitor for bleeding - IVC filter in place Neurogenic bowel vs. ileus: resolved. - Full diet but will monitor closely - Dulcolax PO and RC PRN Neurogenic bladder - Haque in place draining light yellow urine multiple stage 2 pressure ulcer on sacrum and buttock - improving - air mattress and continue to reposition q2H - continue multivit, zinc, vitamin C PO - Wound care is following Prophylaxis GI ppx- Protonix DVT ppx- coumadin Dispo: Patient was denies medicare today. He will remain as an inpatient until further planning can be arranged. Seen reviewed and discussed with Dr. Piedra <Tobin Piedra - Last Filed: 09/22/16 15:43> Objective - Vital Signs/Intake and Output Vital Signs (last 24 hours): Temp Pulse Resp BP Pulse Ox 98.4 F 60 16 130/62 97 09/22/16 08:00 09/22/16 10:03 09/22/16 08:00 09/22/16 10:03 09/22/16 08:00 Intake and Output: 09/22/16 09/22/16 06:59 18:59 Intake Total 720 Output Total 600 1300 Balance -600 -580 - Medications Medications: Current Medications Acetaminophen (Tylenol 325mg Tab) 650 mg PO Q4H PRN PRN Reason: Pain, Mild (1-3) Ascorbic Acid (Vitamin C 500 Mg Tab) 500 mg PO DAILY [facility] Last Admin: 09/22/16 10:02 Dose: 500 mg Baclofen (Lioresal) 20 mg PO TID [facility] Last Admin: 09/22/16 13:44 Dose: 20 mg Bisacodyl (Dulcolax) 5 mg PO DAILY PRN PRN Reason: Constipation Meropenem 1g/NS 100mL IVPB (Meropenem 1g/Ns 100ml Ivpb) 1 gm in 100 mls @ 100 mls/hr IVPB Q8 [facility] PRN Reason: Protocol Stop: 10/02/16 14:00 Last Admin: 09/22/16 13:44 Dose: 100 mls/hr Metoprolol Tartrate (Lopressor) 25 mg PO BID [facility] Last Admin: 09/22/16 10:03 Dose: 25 mg Multivitamins/Minerals (Therapeutic-M Tab) 1 tab PO DAILY [facility] Last Admin: 09/22/16 10:01 Dose: 1 tab Ondansetron HCl (Zofran Inj) 4 mg IVP Q6H PRN PRN Reason: Nausea/Vomiting Pantoprazole Sodium (Protonix Ec Tab) 40 mg PO ACB [facility] Last Admin: 09/22/16 10:01 Dose: 40 mg Pramipexole Dihydrochloride (Mirapex) 0.25 mg PO TID [facility] Last Admin: 09/22/16 13:44 Dose: 0.25 mg Warfarin Sodium (Coumadin) 3 mg PO 1800 [facility] PRN Reason: Protocol Last Admin: 09/21/16 18:10 Dose: 3 mg Zinc Sulfate (Zinc Sulfate 220 Mg Cap) 220 mg PO DAILY [facility] Last Admin: 09/22/16 10:01 Dose: 220 mg - Labs Labs: 09/20/16 11:45 09/20/16 11:45 PT 26.7 Seconds (9.9-11.8) H 09/21/16 06:35 INR 2.47 (0.93-1.08) H 09/21/16 06:35 APTT 41.0 Seconds (23.7-30.8) H 09/09/16 12:00 Attending/Attestation - Attestation I have personally seen and examined this patient.: Yes I have fully participated in the care of the patient.: Yes I have reviewed all pertinent clinical information, including history, physical exam and plan: Yes Notes (Text): 09/22/16 15:42 attending note; Patient seen and examined with senior medical technologist. Patient is a 51 year old male with history of substance abuse (snorts cocaine), tobacco, alcohol abuse was admitted for evaluation of back pain and found to have epidural abscess T1-T5, osteomyelitis, urinary retention and acute RLE DVT.He underwent emergent laminectomy and epidural abscess was drained. He is on meropenem. Repeat MRI spine Lumbar and thoracic spine showed that epidural abscess has resolved. CRP is improving. S/P IVC filter on coumadin. Patient is Paraplegic. Patient hemoglobin is stable. hematuria resolved. Coumadin dosage decreased. Patient is awaiting placement. Continue physical therapy.
--- NOTE | 2016-09-22 15:56 | CP.PCM.PN ---
<Vicki Sherwood - Last Filed: 09/22/16 15:56> Subjective - Date & Time of Evaluation Date of Evaluation: 09/21/16 Time of Evaluation: 12:00 - Subjective Subjective: Patient seen and examined at bedside. No acute complaints at this time. No acute or adverse events overnight as per nursing staff. Pt is eager to participate in PT tomorrow. Urine in haque bag is clear. Objective - Vital Signs/Intake and Output Vital Signs (last 24 hours): Temp Pulse Resp BP Pulse Ox 98.4 F 60 16 130/62 97 09/22/16 08:00 09/22/16 10:03 09/22/16 08:00 09/22/16 10:03 09/22/16 08:00 Intake and Output: 09/22/16 09/22/16 06:59 18:59 Intake Total 720 Output Total 600 1300 Balance -600 -580 - Medications Medications: Current Medications Acetaminophen (Tylenol 325mg Tab) 650 mg PO Q4H PRN PRN Reason: Pain, Mild (1-3) Ascorbic Acid (Vitamin C 500 Mg Tab) 500 mg PO DAILY [facility] Last Admin: 09/22/16 10:02 Dose: 500 mg Baclofen (Lioresal) 20 mg PO TID [facility] Last Admin: 09/22/16 13:44 Dose: 20 mg Bisacodyl (Dulcolax) 5 mg PO DAILY PRN PRN Reason: Constipation Meropenem 1g/NS 100mL IVPB (Meropenem 1g/Ns 100ml Ivpb) 1 gm in 100 mls @ 100 mls/hr IVPB Q8 [facility] PRN Reason: Protocol Stop: 10/02/16 14:00 Last Admin: 09/22/16 13:44 Dose: 100 mls/hr Metoprolol Tartrate (Lopressor) 25 mg PO BID [facility] Last Admin: 09/22/16 10:03 Dose: 25 mg Multivitamins/Minerals (Therapeutic-M Tab) 1 tab PO DAILY [facility] Last Admin: 09/22/16 10:01 Dose: 1 tab Ondansetron HCl (Zofran Inj) 4 mg IVP Q6H PRN PRN Reason: Nausea/Vomiting Pantoprazole Sodium (Protonix Ec Tab) 40 mg PO ACB [facility] Last Admin: 09/22/16 10:01 Dose: 40 mg Pramipexole Dihydrochloride (Mirapex) 0.25 mg PO TID [facility] Last Admin: 09/22/16 13:44 Dose: 0.25 mg Warfarin Sodium (Coumadin) 3 mg PO 1800 [facility] PRN Reason: Protocol Last Admin: 09/21/16 18:10 Dose: 3 mg Zinc Sulfate (Zinc Sulfate 220 Mg Cap) 220 mg PO DAILY [facility] Last Admin: 09/22/16 10:01 Dose: 220 mg - Labs Labs: 09/20/16 11:45 09/20/16 11:45 PT 26.7 Seconds (9.9-11.8) H 09/21/16 06:35 INR 2.47 (0.93-1.08) H 09/21/16 06:35 APTT 41.0 Seconds (23.7-30.8) H 09/09/16 12:00 - Constitutional Appears: No Acute Distress - Head Exam Head Exam: ATRAUMATIC, NORMAL INSPECTION, NORMOCEPHALIC - Eye Exam Eye Exam: EOMI, Normal appearance, PERRL Pupil Exam: NORMAL ACCOMODATION, PERRL - ENT Exam ENT Exam: Mucous Membranes Moist, Normal Exam - Neck Exam Neck Exam: Full ROM, Normal Inspection. absent: Lymphadenopathy - Respiratory Exam Respiratory Exam: Clear to Ausculation Bilateral, NORMAL BREATHING PATTERN - Cardiovascular Exam Cardiovascular Exam: REGULAR RHYTHM, +S1, +S2. absent: Murmur - GI/Abdominal Exam GI & Abdominal Exam: Soft, Normal Bowel Sounds. absent: Tenderness - Exam Additional comments: haque in place, clear herb urine in bag - Extremities Exam Extremities Exam: Normal Inspection - Neurological Exam Neurological Exam: Alert, Awake, CN II-XII Intact, Oriented x3 - Psychiatric Exam Psychiatric exam: Normal Affect, Normal Mood - Skin Skin Exam: Dry, Intact, Normal Color, Warm Assessment and Plan - Assessment and Plan (Free Text) Assessment: Patient is a 51 year old male with no significant past medical history is 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 Patient is medically stable and awaiting final outpatient planning ESR and CRP remain elevated but trending down. Will continue abx per ID. Continue to follow course Epidural space abscess s/p lamenectomy T2-T4 on 4/10/17 - ESR, CRP both elevated but trending down - MRI lumbar and thoracic spine - resolving osteomyelitis, discitis. abscess has resolved. - Continue meropenem for now - will follow ID recommendations on ultimate duration of therapy. - ID following - Tramadol prn for pain hematuria - Resolved - asymptomatic - clear colored urine today - had cystoscopy performed - haque to remain in place - will consider adjusting coumadin dosage. 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 Boots in place - Baclofen 20 mg PO TID - Continue Mirapex R LE DVT s/p IVC filter placed - INR is therapeutic. Will maintain INR between 2-3 - Continue coumadin. will adjust based on INR - Will check INR and labs every other day. will continue to monitor for bleeding - IVC filter in place Neurogenic bowel vs. ileus: resolved. - Full diet but will monitor closely - Dulcolax PO and RC PRN Neurogenic bladder - Haque in place draining light yellow urine multiple stage 2 pressure ulcer on sacrum and buttock - improving - air mattress and continue to reposition q2H - continue multivit, zinc, vitamin C PO - Wound care is following Prophylaxis GI ppx- Protonix DVT ppx- coumadin Dispo: Pending placement Seen reviewed and discussed with Dr. Piedra <Tobin Piedra - Last Filed: 09/22/16 16:57> Objective - Vital Signs/Intake and Output Vital Signs (last 24 hours): Temp Pulse Resp BP Pulse Ox 98.4 F 60 16 130/62 97 09/22/16 08:00 09/22/16 10:03 09/22/16 08:00 09/22/16 10:03 09/22/16 08:00 Intake and Output: 09/22/16 09/22/16 06:59 18:59 Intake Total 720 Output Total 600 1300 Balance -600 -580 - Medications Medications: Current Medications Acetaminophen (Tylenol 325mg Tab) 650 mg PO Q4H PRN PRN Reason: Pain, Mild (1-3) Ascorbic Acid (Vitamin C 500 Mg Tab) 500 mg PO DAILY [facility] Last Admin: 09/22/16 10:02 Dose: 500 mg Baclofen (Lioresal) 20 mg PO TID [facility] Last Admin: 09/22/16 13:44 Dose: 20 mg Bisacodyl (Dulcolax) 5 mg PO DAILY PRN PRN Reason: Constipation Meropenem 1g/NS 100mL IVPB (Meropenem 1g/Ns 100ml Ivpb) 1 gm in 100 mls @ 100 mls/hr IVPB Q8 [facility] PRN Reason: Protocol Stop: 10/02/16 14:00 Last Admin: 09/22/16 13:44 Dose: 100 mls/hr Metoprolol Tartrate (Lopressor) 25 mg PO BID [facility] Last Admin: 09/22/16 10:03 Dose: 25 mg Multivitamins/Minerals (Therapeutic-M Tab) 1 tab PO DAILY [facility] Last Admin: 09/22/16 10:01 Dose: 1 tab Ondansetron HCl (Zofran Inj) 4 mg IVP Q6H PRN PRN Reason: Nausea/Vomiting Pantoprazole Sodium (Protonix Ec Tab) 40 mg PO ACB [facility] Last Admin: 09/22/16 10:01 Dose: 40 mg Pramipexole Dihydrochloride (Mirapex) 0.25 mg PO TID [facility] Last Admin: 09/22/16 13:44 Dose: 0.25 mg Warfarin Sodium (Coumadin) 3 mg PO 1800 [facility] PRN Reason: Protocol Last Admin: 09/21/16 18:10 Dose: 3 mg Zinc Sulfate (Zinc Sulfate 220 Mg Cap) 220 mg PO DAILY [facility] Last Admin: 09/22/16 10:01 Dose: 220 mg - Labs Labs: 09/20/16 11:45 09/20/16 11:45 PT 26.7 Seconds (9.9-11.8) H 09/21/16 06:35 INR 2.47 (0.93-1.08) H 09/21/16 06:35 APTT 41.0 Seconds (23.7-30.8) H 09/09/16 12:00 Attending/Attestation - Attestation I have personally seen and examined this patient.: Yes I have fully participated in the care of the patient.: Yes I have reviewed all pertinent clinical information, including history, physical exam and plan: Yes Notes (Text): 09/22/16 16:57 attending note; Patient seen and examined with medical auditor. Patient is a 51 year old male with history of substance abuse (snorts cocaine), tobacco, alcohol abuse was admitted for evaluation of back pain and found to have epidural abscess T1-T5, osteomyelitis, urinary retention and acute RLE DVT.He underwent emergent laminectomy and epidural abscess was drained. He is on meropenem. Repeat MRI spine Lumbar and thoracic spine showed that epidural abscess has resolved. CRP is improving. S/P IVC filter on coumadin. Patient is Paraplegic. Patient hemoglobin is stable. hematuria resolved. Patient is awaiting placement. Continue physical therapy.
--- NOTE | 2016-09-22 17:00 | PN ---
DATE: 09/22/2016 The patient is in bed in no acute distress. PHYSICAL EXAMINATION: VITAL SIGNS: Temperature is 98, blood pressure is 120/70, respiratory rate of 16. HEENT: Unremarkable. NECK: Supple. LUNGS: Have decreased breath sounds. HEART: Normal S1, S2. ABDOMEN: Soft. LABORATORY DATA: Reveals the patient's white count is 5.8, hemoglobin of 12.9, platelets of 162. Ch emistries reveals a BUN of 21, creatinine of 0.6. Urinalysis is noted. Serology is noted. Microbio logy is noted. Review of the orders reveals the patient to be on meropenem. 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 Recommend CBC, ____ _ sed rate, C-reactive protein. We will need a repeat MRI. Last MRI was 14 days. Colt Coronel MD cc: 350 TT: 09/22/2016 16:59:51 Confirmation # [id number] Dictation # [id number]
[2016-09-23] MEDS: Meropenem 1g/NS 100mL IVPB 1 GM/100 ML PIGGYBACK IVPB SCH ×3 (06:50→21:23)
[2016-09-23] MEDS: Pantoprazole 40 mg EC Tab PO SCH (07:35)
[2016-09-23] MEDS: Multivitamin With Minerals Tab PO SCH (11:07)
--- NOTE | 2016-09-23 11:14 | CP.PCM.PN ---
<MichaelGlenn - Last Filed: 09/23/16 10:54> Subjective - Date & Time of Evaluation Date of Evaluation: 09/23/16 Time of Evaluation: 10:54 - Subjective Subjective: Patient seen and examined. He is participating in PT daily. Urine in haque bag is clear. Patient is followed by ID. Objective - Vital Signs/Intake and Output Vital Signs (last 24 hours): Temp Pulse Resp BP Pulse Ox 97.6 F 58 L 18 123/67 97 09/23/16 08:13 09/23/16 08:13 09/23/16 08:13 09/23/16 08:13 09/23/16 08:13 Intake and Output: 09/23/16 09/23/16 06:59 18:59 Intake Total 840 Output Total 1150 Balance -310 - Medications Medications: Current Medications Acetaminophen (Tylenol 325mg Tab) 650 mg PO Q4H PRN PRN Reason: Pain, Mild (1-3) Ascorbic Acid (Vitamin C 500 Mg Tab) 500 mg PO DAILY [facility] Last Admin: 09/22/16 10:02 Dose: 500 mg Baclofen (Lioresal) 20 mg PO TID [facility] Last Admin: 09/22/16 18:01 Dose: 20 mg Bisacodyl (Dulcolax) 5 mg PO DAILY PRN PRN Reason: Constipation Meropenem 1g/NS 100mL IVPB (Meropenem 1g/Ns 100ml Ivpb) 1 gm in 100 mls @ 100 mls/hr IVPB Q8 [facility] PRN Reason: Protocol Stop: 10/02/16 14:00 Last Admin: 09/23/16 06:50 Dose: 100 mls/hr Metoprolol Tartrate (Lopressor) 25 mg PO BID [facility] Last Admin: 09/22/16 18:02 Dose: Not Given Multivitamins/Minerals (Therapeutic-M Tab) 1 tab PO DAILY [facility] Last Admin: 09/22/16 10:01 Dose: 1 tab Ondansetron HCl (Zofran Inj) 4 mg IVP Q6H PRN PRN Reason: Nausea/Vomiting Pantoprazole Sodium (Protonix Ec Tab) 40 mg PO ACB [facility] Last Admin: 09/23/16 07:35 Dose: 40 mg Pramipexole Dihydrochloride (Mirapex) 0.25 mg PO TID [facility] Last Admin: 09/22/16 18:01 Dose: 0.25 mg Warfarin Sodium (Coumadin) 3 mg PO 1800 [facility] PRN Reason: Protocol Last Admin: 09/22/16 18:02 Dose: 3 mg Zinc Sulfate (Zinc Sulfate 220 Mg Cap) 220 mg PO DAILY [facility] Last Admin: 09/22/16 10:01 Dose: 220 mg - Labs Labs: 09/20/16 11:45 09/20/16 11:45 PT 26.7 Seconds (9.9-11.8) H 09/21/16 06:35 INR 2.47 (0.93-1.08) H 09/21/16 06:35 APTT 41.0 Seconds (23.7-30.8) H 09/09/16 12:00 - Constitutional Appears: Non-toxic, No Acute Distress - Head Exam Head Exam: ATRAUMATIC, NORMOCEPHALIC - Eye Exam Eye Exam: EOMI, PERRL - ENT Exam ENT Exam: Mucous Membranes Moist - Neck Exam Neck Exam: Full ROM, Normal Inspection - Respiratory Exam Respiratory Exam: Clear to Ausculation Bilateral. absent: Rales, Rhonchi, Wheezes - Cardiovascular Exam Cardiovascular Exam: REGULAR RHYTHM, +S1, +S2 - GI/Abdominal Exam GI & Abdominal Exam: Soft, Normal Bowel Sounds. absent: Tenderness - Extremities Exam Extremities Exam: Normal Inspection. absent: Full ROM, Pedal Edema - Neurological Exam Neurological Exam: Alert, Awake, Oriented x3 Neuro motor strength exam: Left Lower Extremity: 0, Right Lower Extremity: 0 - Psychiatric Exam Psychiatric exam: Normal Affect, Normal Mood - Skin Skin Exam: Dry, Normal Color Assessment and Plan - Assessment and Plan (Free Text) Assessment: Patient is a 51 year old male with no significant past medical history is 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 Patient is medically stable and awaiting final outpatient planning ESR and CRP remain elevated but trending down. Will continue abx for now and repeat MRI spine to evaluate possible resolution of osteomyelitis. 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 abscess has resolved. - Continue meropenem for now - will follow ID recommendations on ultimate duration of therapy. - ID following - Tramadol prn for pain hematuria, asymptomatic - clear pink colored urine today - had cystoscopy performed - haque to remain in place - will consider adjusting coumadin dosage. 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 Boots in place - Baclofen 20 mg PO TID - Continue Mirapex R LE DVT s/p IVC filter placed - INR is therapeutic. Will maintain INR between 2-3 - Continue coumadin. will adjust based on INR - Will check INR and labs every other day. will continue to monitor for bleeding - IVC filter in place Neurogenic bowel vs. ileus: resolved. - Full diet but will monitor closely - Dulcolax PO and RC PRN Neurogenic bladder - Haque in place draining light yellow urine multiple stage 2 pressure ulcer on sacrum and buttock - improving - air mattress and continue to reposition q2H - continue multivit, zinc, vitamin C PO - Wound care is following Prophylaxis GI ppx- Protonix DVT ppx- coumadin Dispo: Patient was denies medicare today. He will remain as an inpatient until further planning can be arranged. Seen reviewed and discussed with Dr. Piedra <Tobin Piedra - Last Filed: 09/23/16 13:44> Objective - Vital Signs/Intake and Output Vital Signs (last 24 hours): Temp Pulse Resp BP Pulse Ox 97.6 F 67 18 144/89 97 09/23/16 08:13 09/23/16 11:08 09/23/16 08:13 09/23/16 11:08 09/23/16 08:13 Intake and Output: 09/23/16 09/23/16 06:59 18:59 Intake Total 840 360 Output Total 1150 700 Balance -310 -340 - Medications Medications: Current Medications Acetaminophen (Tylenol 325mg Tab) 650 mg PO Q4H PRN PRN Reason: Pain, Mild (1-3) Ascorbic Acid (Vitamin C 500 Mg Tab) 500 mg PO DAILY [facility] Last Admin: 09/23/16 11:08 Dose: 500 mg Baclofen (Lioresal) 20 mg PO TID [facility] Last Admin: 09/23/16 11:07 Dose: 20 mg Bisacodyl (Dulcolax) 5 mg PO DAILY PRN PRN Reason: Constipation Meropenem 1g/NS 100mL IVPB (Meropenem 1g/Ns 100ml Ivpb) 1 gm in 100 mls @ 100 mls/hr IVPB Q8 [facility] PRN Reason: Protocol Stop: 10/02/16 14:00 Last Admin: 09/23/16 06:50 Dose: 100 mls/hr Metoprolol Tartrate (Lopressor) 25 mg PO BID [facility] Last Admin: 09/23/16 11:08 Dose: 25 mg Multivitamins/Minerals (Therapeutic-M Tab) 1 tab PO DAILY [facility] Last Admin: 09/23/16 11:07 Dose: 1 tab Ondansetron HCl (Zofran Inj) 4 mg IVP Q6H PRN PRN Reason: Nausea/Vomiting Pantoprazole Sodium (Protonix Ec Tab) 40 mg PO ACB [facility] Last Admin: 09/23/16 07:35 Dose: 40 mg Pramipexole Dihydrochloride (Mirapex) 0.25 mg PO TID [facility] Last Admin: 09/23/16 11:08 Dose: 0.25 mg Warfarin Sodium (Coumadin) 3 mg PO 1800 [facility] PRN Reason: Protocol Last Admin: 09/22/16 18:02 Dose: 3 mg Zinc Sulfate (Zinc Sulfate 220 Mg Cap) 220 mg PO DAILY [facility] Last Admin: 09/23/16 11:09 Dose: 220 mg - Labs Labs: 09/20/16 11:45 09/20/16 11:45 PT 26.7 Seconds (9.9-11.8) H 09/21/16 06:35 INR 2.47 (0.93-1.08) H 09/21/16 06:35 APTT 41.0 Seconds (23.7-30.8) H 09/09/16 12:00 Attending/Attestation - Attestation I have personally seen and examined this patient.: Yes I have fully participated in the care of the patient.: Yes I have reviewed all pertinent clinical information, including history, physical exam and plan: Yes Notes (Text): 09/23/16 13:44 attending note; Patient seen and examined with medical assistant secretary. Patient is a 51 year old male with history of substance abuse (snorts cocaine), tobacco, alcohol abuse was admitted for evaluation of back pain and found to have epidural abscess T1-T5, osteomyelitis, urinary retention and acute RLE DVT.He underwent emergent laminectomy and epidural abscess was drained. He is on meropenem. Repeat MRI spine Lumbar and thoracic spine showed that epidural abscess has resolved. CRP is improving. S/P IVC filter on coumadin. case discussed with ID in detail. Repeat MRI requested. He is doing Patient is Paraplegic. Patient hemoglobin is stable. hematuria resolved. Patient is awaiting placement. Continue physical therapy.
--- NOTE | 2016-09-23 18:58 | MRI ---
EXAM: MR Thoracic Spine Without Intravenous Contrast CLINICAL HISTORY: The patient age is 51 years old and is male; Abnormal findings; Abnormal radiologic findings of thoracic; Patient HX: Abscess t3 t4; Additional info: Follow up resolution of spinal abscess t3 t4 area Facility exam id and description: Mri spts spinal canal thoracic w/o cont TECHNIQUE: Magnetic resonance images of the thoracic spine without intravenous contrast in multiple planes. EXAM DATE/TIME: 09/23/2016 1:46 PM COMPARISON: MR - SPINAL THORACIC W/WO MARGUERITE 09/08/2016 10:12:40 AM FINDINGS: Vertebrae: The thoracic vertebral bodies are normal in height, without abnormal subluxation. Laminectomy defects are identified at multiple upper thoracic levels. Marrow: There is mild edema within the bone marrow adjacent to the endplates at T3-4, which is mildly improved. This was diagnosed as osteomyelitis on the prior study. There is a small T1 hyperintense hemangioma at the T6 vertebral level. Discs/spinal canal/neural foramina: Mild stable edema is visualized within the T3-4 disc, consistent with discitis. Degenerative disc bulge/osteophyte complexes are identified at multiple thoracic levels. At T7-8, there is a small left-sided disc protrusion causing mild narrowing of the adjacent thecal sac. This protrusion is stable in size. CSF flow artifact is identified within the thoracic spinal canal. There is no posterior disc herniation, thecal sac compression, or significant neural foraminal narrowing at the remaining thoracic levels. Spinal cord: There is a stable area of T2 hyperintensity within the thoracic spinal cord at the T4 vertebral level. Differential considerations include myelomalacia, infarction, and myelitis. This evaluation is limited by the absence of intravenous contrast, although there is no pathological enhancement visualized on the previous study. No epidural fluid collections are visualized. Soft tissues: There is stable soft tissue swelling posterior to the lower cervical and upper thoracic spine, which is likely postoperative, infectious, or inflammatory. Other findings: The sternal body is unfused. IMPRESSION: 1. There is a stable area of T2 hyperintensity within the thoracic spinal cord at the T4 vertebral level. Differential considerations include myelomalacia, infarction, and myelitis. 2. There is mild edema within the bone marrow adjacent to the endplates at T3-4, which is mildly improved. This was diagnosed as osteomyelitis on the prior study. 3. Mild stable edema is visualized within the T3-4 disc, consistent with discitis. 4. There is stable soft tissue swelling posterior to the lower cervical and upper thoracic spine, which is likely postoperative, infectious, or inflammatory. 5. Degenerative disc bulge/osteophyte complexes are identified at multiple thoracic levels. 6. At T7-8, there is a small left-sided disc protrusion causing mild narrowing of the adjacent thecal sac. This protrusion is stable in size. 7. Additional findings described above.
[2016-09-24] MEDS: Meropenem 1g/NS 100mL IVPB 1 GM/100 ML PIGGYBACK IVPB SCH ×3 (05:27→22:32)
[2016-09-24] MEDS: Pantoprazole 40 mg EC Tab PO SCH (07:52)
--- NOTE | 2016-09-24 08:47 | RAD ---
HISTORY: cough COMPARISON: 08/09/2016 FINDINGS: LUNGS: There is linear perihilar discoid like atelectasis. There is left lateral base at discoid atelectasis. PLEURA: No significant pleural effusion identified, no pneumothorax apparent. CARDIOVASCULAR: Normal. OSSEOUS STRUCTURES: Left shoulder hypertrophic arthrosis suggest VISUALIZED UPPER ABDOMEN: Normal. OTHER FINDINGS: An interval left PICC line is inserted its tip is in the superior vena cava/right atrial junction. IMPRESSION: Interval insertion of a PICC line in tip as above. Interval discoid like atelectatic changes -right perihilar and left lateral lung base
[2016-09-24] MEDS: Multivitamin With Minerals Tab PO SCH (09:10)
--- NOTE | 2016-09-24 11:21 | CP.PCM.PN ---
Subjective - Date & Time of Evaluation Date of Evaluation: 09/24/16 Time of Evaluation: 07:00 - Subjective Subjective: UNCHANGED Objective - Vital Signs/Intake and Output Vital Signs (last 24 hours): Temp Pulse Resp BP Pulse Ox 98.3 F 85 20 156/87 H 97 09/24/16 08:57 09/24/16 08:57 09/24/16 08:57 09/24/16 08:57 09/24/16 08:57 Intake and Output: 09/24/16 09/24/16 06:59 18:59 Intake Total 980 Output Total 1100 Balance -120 - Medications Medications: Current Medications Acetaminophen (Tylenol 325mg Tab) 650 mg PO Q4H PRN PRN Reason: Pain, Mild (1-3) Ascorbic Acid (Vitamin C 500 Mg Tab) 500 mg PO DAILY [facility] Last Admin: 09/24/16 09:10 Dose: 500 mg Baclofen (Lioresal) 20 mg PO TID [facility] Last Admin: 09/24/16 09:10 Dose: 20 mg Bisacodyl (Dulcolax) 5 mg PO DAILY PRN PRN Reason: Constipation Meropenem 1g/NS 100mL IVPB (Meropenem 1g/Ns 100ml Ivpb) 1 gm in 100 mls @ 100 mls/hr IVPB Q8 [facility] PRN Reason: Protocol Stop: 10/02/16 14:00 Last Admin: 09/24/16 05:27 Dose: 100 mls/hr Metoprolol Tartrate (Lopressor) 25 mg PO BID [facility] Last Admin: 09/24/16 09:10 Dose: 25 mg Multivitamins/Minerals (Therapeutic-M Tab) 1 tab PO DAILY [facility] Last Admin: 09/24/16 09:10 Dose: 1 tab Ondansetron HCl (Zofran Inj) 4 mg IVP Q6H PRN PRN Reason: Nausea/Vomiting Pantoprazole Sodium (Protonix Ec Tab) 40 mg PO ACB [facility] Last Admin: 09/24/16 07:52 Dose: 40 mg Pramipexole Dihydrochloride (Mirapex) 0.25 mg PO TID [facility] Last Admin: 09/24/16 09:10 Dose: 0.25 mg Warfarin Sodium (Coumadin) 3 mg PO 1800 [facility] PRN Reason: Protocol Last Admin: 09/23/16 18:32 Dose: 3 mg Zinc Sulfate (Zinc Sulfate 220 Mg Cap) 220 mg PO DAILY [facility] Last Admin: 09/24/16 09:10 Dose: 220 mg - Labs Labs: 09/20/16 11:45 09/20/16 11:45 PT 26.7 Seconds (9.9-11.8) H 09/21/16 06:35 INR 2.47 (0.93-1.08) H 09/21/16 06:35 APTT 41.0 Seconds (23.7-30.8) H 09/09/16 12:00 - Constitutional Appears: Well - Head Exam Head Exam: ATRAUMATIC, NORMAL INSPECTION, NORMOCEPHALIC - Eye Exam Eye Exam: EOMI, Normal appearance, PERRL Pupil Exam: NORMAL ACCOMODATION, PERRL - ENT Exam ENT Exam: Mucous Membranes Moist, Normal Exam - Neck Exam Neck Exam: Full ROM, Normal Inspection. absent: Lymphadenopathy - Respiratory Exam Respiratory Exam: Clear to Ausculation Bilateral, NORMAL BREATHING PATTERN - Cardiovascular Exam Cardiovascular Exam: REGULAR RHYTHM, +S1, +S2. absent: Murmur - GI/Abdominal Exam GI & Abdominal Exam: Soft, Normal Bowel Sounds. absent: Tenderness - Rectal Exam Rectal Exam: NORMAL INSPECTION - Exam Exam: Circumcision, NORMAL INSPECTION External exam: NORMAL EXTERNAL EXAM Speculum exam: NORMAL SPECULUM EXAM Bimanual exam: NORMAL BIMANUAL EXAM - Extremities Exam Extremities Exam: Full ROM, Normal Capillary Refill, Normal Inspection. absent : Joint Swelling, Pedal Edema - Back Exam Back Exam: NORMAL INSPECTION - Neurological Exam Neurological Exam: Alert, Awake, CN II-XII Intact, Normal Gait, Oriented x3 - Psychiatric Exam Psychiatric exam: Normal Affect, Normal Mood - Skin Skin Exam: Dry, Intact, Normal Color, Warm Assessment and Plan (1) Epidural abscess Status: Acute - Assessment and Plan (Free Text) Assessment: S/P LAMINECTOMY FOR STREP EPIDURAL ABSCESS Plan: PRESENT ABX
[2016-09-25] MEDS: Meropenem 1g/NS 100mL IVPB 1 GM/100 ML PIGGYBACK IVPB SCH ×3 (05:34→21:22)
[2016-09-25 06:33] LABS: INR 1.9 (0.93-1.08); PROTHROMBIN TIME 20.5 Seconds (9.9-11.8)
[2016-09-25] MEDS: Pantoprazole 40 mg EC Tab PO SCH (07:33)
[2016-09-25] MEDS: Multivitamin With Minerals Tab PO SCH (09:13)
--- NOTE | 2016-09-25 14:23 | CP.PCM.PN ---
<MichaelGlenn crenshaw - Last Filed: 09/25/16 14:18> Subjective - Date & Time of Evaluation Date of Evaluation: 09/25/16 Time of Evaluation: 10:45 - Subjective Subjective: Patient seen and examined. Patient participates in PT daily. He notes improved sensation to the right foot and left 5th toe. He continues to experience LE muscle fascinations Objective - Vital Signs/Intake and Output Vital Signs (last 24 hours): Temp Pulse Resp BP Pulse Ox 98 F 55 L 18 121/77 97 09/25/16 07:30 09/25/16 07:30 09/25/16 07:30 09/25/16 07:30 09/25/16 07:30 Intake and Output: 09/25/16 09/25/16 06:59 18:59 Intake Total 720 Output Total 1000 Balance -280 - Medications Medications: Current Medications Acetaminophen (Tylenol 325mg Tab) 650 mg PO Q4H PRN PRN Reason: Pain, Mild (1-3) Last Admin: 09/24/16 15:38 Dose: 650 mg Ascorbic Acid (Vitamin C 500 Mg Tab) 500 mg PO DAILY [facility] Last Admin: 09/25/16 09:13 Dose: 500 mg Baclofen (Lioresal) 20 mg PO TID [facility] Last Admin: 09/25/16 13:04 Dose: 20 mg Bisacodyl (Dulcolax) 5 mg PO DAILY PRN PRN Reason: Constipation Meropenem 1g/NS 100mL IVPB (Meropenem 1g/Ns 100ml Ivpb) 1 gm in 100 mls @ 100 mls/hr IVPB Q8 [facility] PRN Reason: Protocol Stop: 10/02/16 14:00 Last Admin: 09/25/16 13:04 Dose: 100 mls/hr Metoprolol Tartrate (Lopressor) 25 mg PO BID [facility] Last Admin: 09/25/16 09:13 Dose: 25 mg Multivitamins/Minerals (Therapeutic-M Tab) 1 tab PO DAILY [facility] Last Admin: 09/25/16 09:13 Dose: 1 tab Ondansetron HCl (Zofran Inj) 4 mg IVP Q6H PRN PRN Reason: Nausea/Vomiting Pantoprazole Sodium (Protonix Ec Tab) 40 mg PO ACB [facility] Last Admin: 09/25/16 07:33 Dose: 40 mg Pramipexole Dihydrochloride (Mirapex) 0.25 mg PO TID [facility] Last Admin: 09/25/16 13:04 Dose: 0.25 mg Warfarin Sodium (Coumadin) 3 mg PO 1800 [facility] PRN Reason: Protocol Last Admin: 09/24/16 17:07 Dose: 3 mg Warfarin Sodium (Coumadin) 4 mg PO 1800 [facility] PRN Reason: Protocol Stop: 09/25/16 18:01 Zinc Sulfate (Zinc Sulfate 220 Mg Cap) 220 mg PO DAILY [facility] Last Admin: 09/25/16 09:13 Dose: 220 mg - Labs Labs: 09/20/16 11:45 09/20/16 11:45 PT 20.5 Seconds (9.9-11.8) H 09/25/16 06:00 INR 1.90 (0.93-1.08) H 09/25/16 06:00 APTT 41.0 Seconds (23.7-30.8) H 09/09/16 12:00 - Constitutional Appears: Non-toxic, No Acute Distress - Head Exam Head Exam: ATRAUMATIC, NORMOCEPHALIC - Eye Exam Eye Exam: EOMI, PERRL - ENT Exam ENT Exam: Mucous Membranes Moist - Neck Exam Neck Exam: Full ROM, Normal Inspection - Respiratory Exam Respiratory Exam: Clear to Ausculation Bilateral. absent: Rales, Rhonchi, Wheezes - Cardiovascular Exam Cardiovascular Exam: REGULAR RHYTHM, +S1, +S2 - GI/Abdominal Exam GI & Abdominal Exam: Soft, Normal Bowel Sounds. absent: Tenderness - Extremities Exam Extremities Exam: Normal Inspection. 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 Patient is medically stable and awaiting final outpatient planning. Repeat MRI shows resolving osteo. ID is following. Will need to determine eventual discontinuation of abx. 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 abscess has resolved. - Continue meropenem for now - will follow ID recommendations on ultimate duration of therapy. 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 Boots in place - Baclofen 20 mg PO TID - Continue Mirapex R LE DVT s/p IVC filter placed - INR 1.9 - will give coumadin 4mg today. return to 3mg tomorrow - Continue coumadin. will adjust based on INR - Will check INR and labs every other day. will continue to monitor for bleeding - IVC filter in place Neurogenic bowel vs. ileus: resolved. - Full diet but will monitor closely - Dulcolax PO and RC PRN Neurogenic bladder - Mackenzie in place draining light yellow urine multiple stage 2 pressure ulcer on sacrum and buttock - improving - air mattress and continue to reposition q2H - continue multivit, zinc, vitamin C PO - Wound care is following Prophylaxis GI ppx- Protonix DVT ppx- coumadin Dispo: Patient was denies medicare today. He will remain as an inpatient until further planning can be arranged. Seen reviewed and discussed with Dr. Piedra <Tobin Piedra - Last Filed: 09/25/16 16:59> Objective - Vital Signs/Intake and Output Vital Signs (last 24 hours): Temp Pulse Resp BP Pulse Ox 98 F 55 L 18 121/77 97 09/25/16 07:30 09/25/16 07:30 09/25/16 07:30 09/25/16 07:30 09/25/16 07:30 Intake and Output: 09/25/16 09/25/16 06:59 18:59 Intake Total 720 Output Total 1000 Balance -280 - Medications Medications: Current Medications Acetaminophen (Tylenol 325mg Tab) 650 mg PO Q4H PRN PRN Reason: Pain, Mild (1-3) Last Admin: 09/25/16 15:33 Dose: 650 mg Ascorbic Acid (Vitamin C 500 Mg Tab) 500 mg PO DAILY [facility] Last Admin: 09/25/16 09:13 Dose: 500 mg Baclofen (Lioresal) 20 mg PO TID [facility] Last Admin: 09/25/16 13:04 Dose: 20 mg Bisacodyl (Dulcolax) 5 mg PO DAILY PRN PRN Reason: Constipation Meropenem 1g/NS 100mL IVPB (Meropenem 1g/Ns 100ml Ivpb) 1 gm in 100 mls @ 100 mls/hr IVPB Q8 [facility] PRN Reason: Protocol Stop: 10/02/16 14:00 Last Admin: 09/25/16 13:04 Dose: 100 mls/hr Metoprolol Tartrate (Lopressor) 25 mg PO BID [facility] Last Admin: 09/25/16 09:13 Dose: 25 mg Multivitamins/Minerals (Therapeutic-M Tab) 1 tab PO DAILY [facility] Last Admin: 09/25/16 09:13 Dose: 1 tab Ondansetron HCl (Zofran Inj) 4 mg IVP Q6H PRN PRN Reason: Nausea/Vomiting Pantoprazole Sodium (Protonix Ec Tab) 40 mg PO ACB [facility] Last Admin: 09/25/16 07:33 Dose: 40 mg Pramipexole Dihydrochloride (Mirapex) 0.25 mg PO TID [facility] Last Admin: 09/25/16 13:04 Dose: 0.25 mg Warfarin Sodium (Coumadin) 3 mg PO 1800 [facility] PRN Reason: Protocol Last Admin: 09/24/16 17:07 Dose: 3 mg Warfarin Sodium (Coumadin) 4 mg PO 1800 [facility] PRN Reason: Protocol Stop: 09/25/16 18:01 Zinc Sulfate (Zinc Sulfate 220 Mg Cap) 220 mg PO DAILY [facility] Last Admin: 09/25/16 09:13 Dose: 220 mg - Labs Labs: 09/20/16 11:45 09/20/16 11:45 PT 20.5 Seconds (9.9-11.8) H 09/25/16 06:00 INR 1.90 (0.93-1.08) H 09/25/16 06:00 APTT 41.0 Seconds (23.7-30.8) H 09/09/16 12:00 Attending/Attestation - Attestation I have personally seen and examined this patient.: Yes I have fully participated in the care of the patient.: Yes I have reviewed all pertinent clinical information, including history, physical exam and plan: Yes Notes (Text): 09/25/16 16:56 attending note; Patient seen and examined with manager of medical. Patient is a 51 year old male with history of substance abuse (snorts cocaine), tobacco, alcohol abuse was admitted for evaluation of back pain and found to have epidural abscess T1-T5, osteomyelitis, urinary retention and acute RLE DVT. He underwent emergent laminectomy and epidural abscess was drained. He is on meropenem. Repeat MRI thoracic spine showing resolving edema. S/P IVC filter on coumadin. Patient is Paraplegic. Patient hemoglobin is stable. hematuria resolved. Patient is awaiting placement. Continue physical therapy.
--- NOTE | 2016-09-25 16:21 | CP.PCM.PN ---
Subjective - Date & Time of Evaluation Date of Evaluation: 09/25/16 Time of Evaluation: 10:45 - Subjective Subjective: pt is unchanged Objective - Vital Signs/Intake and Output Vital Signs (last 24 hours): Temp Pulse Resp BP Pulse Ox 98 F 55 L 18 121/77 97 09/25/16 07:30 09/25/16 07:30 09/25/16 07:30 09/25/16 07:30 09/25/16 07:30 Intake and Output: 09/25/16 09/25/16 06:59 18:59 Intake Total 720 Output Total 1000 Balance -280 - Medications Medications: Current Medications Acetaminophen (Tylenol 325mg Tab) 650 mg PO Q4H PRN PRN Reason: Pain, Mild (1-3) Last Admin: 09/25/16 15:33 Dose: 650 mg Ascorbic Acid (Vitamin C 500 Mg Tab) 500 mg PO DAILY [facility] Last Admin: 09/25/16 09:13 Dose: 500 mg Baclofen (Lioresal) 20 mg PO TID [facility] Last Admin: 09/25/16 13:04 Dose: 20 mg Bisacodyl (Dulcolax) 5 mg PO DAILY PRN PRN Reason: Constipation Meropenem 1g/NS 100mL IVPB (Meropenem 1g/Ns 100ml Ivpb) 1 gm in 100 mls @ 100 mls/hr IVPB Q8 [facility] PRN Reason: Protocol Stop: 10/02/16 14:00 Last Admin: 09/25/16 13:04 Dose: 100 mls/hr Metoprolol Tartrate (Lopressor) 25 mg PO BID [facility] Last Admin: 09/25/16 09:13 Dose: 25 mg Multivitamins/Minerals (Therapeutic-M Tab) 1 tab PO DAILY [facility] Last Admin: 09/25/16 09:13 Dose: 1 tab Ondansetron HCl (Zofran Inj) 4 mg IVP Q6H PRN PRN Reason: Nausea/Vomiting Pantoprazole Sodium (Protonix Ec Tab) 40 mg PO ACB [facility] Last Admin: 09/25/16 07:33 Dose: 40 mg Pramipexole Dihydrochloride (Mirapex) 0.25 mg PO TID [facility] Last Admin: 09/25/16 13:04 Dose: 0.25 mg Warfarin Sodium (Coumadin) 3 mg PO 1800 [facility] PRN Reason: Protocol Last Admin: 09/24/16 17:07 Dose: 3 mg Warfarin Sodium (Coumadin) 4 mg PO 1800 [facility] PRN Reason: Protocol Stop: 09/25/16 18:01 Zinc Sulfate (Zinc Sulfate 220 Mg Cap) 220 mg PO DAILY [facility] Last Admin: 09/25/16 09:13 Dose: 220 mg - Labs Labs: 09/20/16 11:45 09/20/16 11:45 PT 20.5 Seconds (9.9-11.8) H 09/25/16 06:00 INR 1.90 (0.93-1.08) H 09/25/16 06:00 APTT 41.0 Seconds (23.7-30.8) H 09/09/16 12:00 - Constitutional Appears: Well - Head Exam Head Exam: ATRAUMATIC, NORMAL INSPECTION, NORMOCEPHALIC - Eye Exam Eye Exam: EOMI, Normal appearance, PERRL Pupil Exam: NORMAL ACCOMODATION, PERRL - ENT Exam ENT Exam: Mucous Membranes Moist, Normal Exam - Neck Exam Neck Exam: Full ROM, Normal Inspection. absent: Lymphadenopathy - Respiratory Exam Respiratory Exam: Clear to Ausculation Bilateral, NORMAL BREATHING PATTERN - Cardiovascular Exam Cardiovascular Exam: REGULAR RHYTHM, +S1, +S2. absent: Murmur - GI/Abdominal Exam GI & Abdominal Exam: Soft, Normal Bowel Sounds. absent: Tenderness - Rectal Exam Rectal Exam: NORMAL INSPECTION - Exam Exam: Circumcision, NORMAL INSPECTION External exam: NORMAL EXTERNAL EXAM Speculum exam: NORMAL SPECULUM EXAM Bimanual exam: NORMAL BIMANUAL EXAM - Extremities Exam Extremities Exam: absent: Joint Swelling, Pedal Edema - Back Exam Back Exam: NORMAL INSPECTION - Neurological Exam Neurological Exam: Alert, Awake, CN II-XII Intact, Normal Gait, Oriented x3 - Psychiatric Exam Psychiatric exam: Normal Affect, Normal Mood - Skin Skin Exam: Dry, Intact, Normal Color, Warm Assessment and Plan (1) Epidural abscess Status: Acute - Assessment and Plan (Free Text) Plan: anatoliy
[2016-09-26] MEDS: Meropenem 1g/NS 100mL IVPB 1 GM/100 ML PIGGYBACK IVPB SCH ×3 (06:45→21:10)
[2016-09-26] MEDS: Pantoprazole 40 mg EC Tab PO SCH (08:30)
--- NOTE | 2016-09-26 10:13 | CP.PCM.PN ---
Subjective - Date & Time of Evaluation Date of Evaluation: 09/26/16 Time of Evaluation: 08:00 - Subjective Subjective: UNCHANGED Objective - Vital Signs/Intake and Output Vital Signs (last 24 hours): Temp Pulse Resp BP Pulse Ox 97.6 F 56 L 20 122/81 97 09/26/16 07:30 09/26/16 07:30 09/26/16 07:30 09/26/16 07:30 09/26/16 07:30 Intake and Output: 09/26/16 09/26/16 06:59 18:59 Intake Total 700 Output Total 1300 Balance -600 - Medications Medications: Current Medications Acetaminophen (Tylenol 325mg Tab) 650 mg PO Q4H PRN PRN Reason: Pain, Mild (1-3) Last Admin: 09/25/16 15:33 Dose: 650 mg Ascorbic Acid (Vitamin C 500 Mg Tab) 500 mg PO DAILY [facility] Last Admin: 09/25/16 09:13 Dose: 500 mg Baclofen (Lioresal) 20 mg PO TID [facility] Last Admin: 09/25/16 17:14 Dose: 20 mg Bisacodyl (Dulcolax) 5 mg PO DAILY PRN PRN Reason: Constipation Meropenem 1g/NS 100mL IVPB (Meropenem 1g/Ns 100ml Ivpb) 1 gm in 100 mls @ 100 mls/hr IVPB Q8 [facility] PRN Reason: Protocol Stop: 10/02/16 14:00 Last Admin: 09/26/16 06:45 Dose: 100 mls/hr Metoprolol Tartrate (Lopressor) 25 mg PO BID [facility] Last Admin: 09/25/16 17:14 Dose: 25 mg Multivitamins/Minerals (Therapeutic-M Tab) 1 tab PO DAILY [facility] Last Admin: 09/25/16 09:13 Dose: 1 tab Ondansetron HCl (Zofran Inj) 4 mg IVP Q6H PRN PRN Reason: Nausea/Vomiting Pantoprazole Sodium (Protonix Ec Tab) 40 mg PO ACB [facility] Last Admin: 09/25/16 07:33 Dose: 40 mg Pramipexole Dihydrochloride (Mirapex) 0.25 mg PO TID [facility] Last Admin: 09/25/16 17:15 Dose: 0.25 mg Warfarin Sodium (Coumadin) 3 mg PO 1800 [facility] PRN Reason: Protocol Last Admin: 09/24/16 17:07 Dose: 3 mg Zinc Sulfate (Zinc Sulfate 220 Mg Cap) 220 mg PO DAILY [facility] Last Admin: 09/25/16 09:13 Dose: 220 mg - Labs Labs: 09/20/16 11:45 09/20/16 11:45 PT 20.5 Seconds (9.9-11.8) H 09/25/16 06:00 INR 1.90 (0.93-1.08) H 09/25/16 06:00 APTT 41.0 Seconds (23.7-30.8) H 09/09/16 12:00 - Constitutional Appears: Well - Head Exam Head Exam: ATRAUMATIC, NORMAL INSPECTION, NORMOCEPHALIC - Eye Exam Eye Exam: EOMI, Normal appearance, PERRL Pupil Exam: NORMAL ACCOMODATION, PERRL - ENT Exam ENT Exam: Mucous Membranes Moist, Normal Exam - Neck Exam Neck Exam: Full ROM, Normal Inspection. absent: Lymphadenopathy - Respiratory Exam Respiratory Exam: Clear to Ausculation Bilateral, NORMAL BREATHING PATTERN - Cardiovascular Exam Cardiovascular Exam: REGULAR RHYTHM, +S1, +S2. absent: Murmur - GI/Abdominal Exam GI & Abdominal Exam: Soft, Normal Bowel Sounds. absent: Tenderness - Rectal Exam Rectal Exam: NORMAL INSPECTION - Exam Exam: Circumcision, NORMAL INSPECTION External exam: NORMAL EXTERNAL EXAM Speculum exam: NORMAL SPECULUM EXAM Bimanual exam: NORMAL BIMANUAL EXAM - Extremities Exam Extremities Exam: Full ROM, Normal Capillary Refill, Normal Inspection. absent : Joint Swelling, Pedal Edema - Back Exam Back Exam: NORMAL INSPECTION - Neurological Exam Neurological Exam: Alert, Awake, CN II-XII Intact, Normal Gait, Oriented x3 - Psychiatric Exam Psychiatric exam: Normal Affect, Normal Mood - Skin Skin Exam: Dry, Intact, Normal Color, Warm Assessment and Plan (1) Epidural abscess Status: Acute - Assessment and Plan (Free Text) Plan: ON MERR
[2016-09-26] MEDS: Multivitamin With Minerals Tab PO SCH (10:16)
--- NOTE | 2016-09-26 12:48 | CP.PCM.PN ---
<Glenn Rodriguez - Last Filed: 09/26/16 12:45> Subjective - Date & Time of Evaluation Date of Evaluation: 09/26/16 Time of Evaluation: 12:45 - Subjective Subjective: Patient seen at bedside. He has not complaints at this time. He is participating in PT daily. Tolerating diet. OOB to chair and wheelchair. Continues to experience LE fascinations. Objective - Vital Signs/Intake and Output Vital Signs (last 24 hours): Temp Pulse Resp BP Pulse Ox 97.6 F 60 20 122/81 97 09/26/16 07:30 09/26/16 10:15 09/26/16 07:30 09/26/16 10:15 09/26/16 07:30 Intake and Output: 09/26/16 09/26/16 06:59 18:59 Intake Total 700 Output Total 1300 Balance -600 - Medications Medications: Current Medications Acetaminophen (Tylenol 325mg Tab) 650 mg PO Q4H PRN PRN Reason: Pain, Mild (1-3) Last Admin: 09/25/16 15:33 Dose: 650 mg Ascorbic Acid (Vitamin C 500 Mg Tab) 500 mg PO DAILY [facility] Last Admin: 09/26/16 10:15 Dose: 500 mg Baclofen (Lioresal) 20 mg PO TID [facility] Last Admin: 09/26/16 10:16 Dose: 20 mg Bisacodyl (Dulcolax) 5 mg PO DAILY PRN PRN Reason: Constipation Meropenem 1g/NS 100mL IVPB (Meropenem 1g/Ns 100ml Ivpb) 1 gm in 100 mls @ 100 mls/hr IVPB Q8 [facility] PRN Reason: Protocol Stop: 10/02/16 14:00 Last Admin: 09/26/16 06:45 Dose: 100 mls/hr Metoprolol Tartrate (Lopressor) 25 mg PO BID [facility] Last Admin: 09/26/16 10:15 Dose: 25 mg Multivitamins/Minerals (Therapeutic-M Tab) 1 tab PO DAILY [facility] Last Admin: 09/26/16 10:16 Dose: 1 tab Ondansetron HCl (Zofran Inj) 4 mg IVP Q6H PRN PRN Reason: Nausea/Vomiting Pantoprazole Sodium (Protonix Ec Tab) 40 mg PO ACB [facility] Last Admin: 09/26/16 08:30 Dose: 40 mg Pramipexole Dihydrochloride (Mirapex) 0.25 mg PO TID [facility] Last Admin: 09/26/16 10:16 Dose: 0.25 mg Warfarin Sodium (Coumadin) 3 mg PO 1800 [facility] PRN Reason: Protocol Last Admin: 09/24/16 17:07 Dose: 3 mg Zinc Sulfate (Zinc Sulfate 220 Mg Cap) 220 mg PO DAILY [facility] Last Admin: 09/26/16 10:15 Dose: 220 mg - Labs Labs: 09/20/16 11:45 09/20/16 11:45 PT 20.5 Seconds (9.9-11.8) H 09/25/16 06:00 INR 1.90 (0.93-1.08) H 09/25/16 06:00 APTT 41.0 Seconds (23.7-30.8) H 09/09/16 12:00 - Constitutional Appears: Non-toxic, No Acute Distress - Head Exam Head Exam: ATRAUMATIC, NORMOCEPHALIC - Eye Exam Eye Exam: EOMI, PERRL - ENT Exam ENT Exam: Mucous Membranes Moist - Neck Exam Neck Exam: Full ROM, Normal Inspection - Respiratory Exam Respiratory Exam: Clear to Ausculation Bilateral, NORMAL BREATHING PATTERN. absent: Rales, Rhonchi - Cardiovascular Exam Cardiovascular Exam: REGULAR RHYTHM, +S1, +S2 - GI/Abdominal Exam GI & Abdominal Exam: Soft, Normal Bowel Sounds. absent: Tenderness - Extremities Exam Extremities Exam: Normal Inspection. absent: Full ROM, Pedal Edema - Back Exam Additional comments: skin breakdown over sacrum and buttocks bilaterally. No evidence of drainage or infection. 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 Patient is medically stable and awaiting final outpatient planning. Repeat MRI shows resolving osteo. ID is following. Will need to determine eventual discontinuation of abx. 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 abscess has resolved. - Continue meropenem for now - will follow ID recommendations on ultimate duration of therapy. 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 Boots in place - Baclofen 20 mg PO TID - Continue Mirapex R LE DVT s/p IVC filter placed - INR 1.9 - will give coumadin 4mg today. return to 3mg tomorrow - Continue coumadin. will adjust based on INR - Will check INR and labs every other day. will continue to monitor for bleeding - IVC filter in place Neurogenic bowel vs. ileus: resolved. - Full diet but will monitor closely - Dulcolax PO and RC PRN Neurogenic bladder - Mackenzie in place draining light yellow urine multiple stage 2 pressure ulcer on sacrum and buttock - examined today. - wound care called to re-evaluate - air mattress and continue to reposition q2H - continue multivit, zinc, vitamin C PO - Wound care is following Prophylaxis GI ppx- Protonix DVT ppx- coumadin Dispo: Patient was denies medicare today. He will remain as an inpatient until further planning can be arranged. <Tobin Piedra - Last Filed: 09/26/16 14:04> Objective - Vital Signs/Intake and Output Vital Signs (last 24 hours): Temp Pulse Resp BP Pulse Ox 97.6 F 60 20 122/81 97 09/26/16 07:30 09/26/16 10:15 09/26/16 07:30 09/26/16 10:15 09/26/16 07:30 Intake and Output: 09/26/16 09/26/16 06:59 18:59 Intake Total 700 Output Total 1300 Balance -600 - Medications Medications: Current Medications Acetaminophen (Tylenol 325mg Tab) 650 mg PO Q4H PRN PRN Reason: Pain, Mild (1-3) Last Admin: 09/25/16 15:33 Dose: 650 mg Ascorbic Acid (Vitamin C 500 Mg Tab) 500 mg PO DAILY [facility] Last Admin: 09/26/16 10:15 Dose: 500 mg Baclofen (Lioresal) 20 mg PO TID [facility] Last Admin: 09/26/16 10:16 Dose: 20 mg Bisacodyl (Dulcolax) 5 mg PO DAILY PRN PRN Reason: Constipation Meropenem 1g/NS 100mL IVPB (Meropenem 1g/Ns 100ml Ivpb) 1 gm in 100 mls @ 100 mls/hr IVPB Q8 [facility] PRN Reason: Protocol Stop: 10/02/16 14:00 Last Admin: 09/26/16 06:45 Dose: 100 mls/hr Metoprolol Tartrate (Lopressor) 25 mg PO BID [facility] Last Admin: 09/26/16 10:15 Dose: 25 mg Multivitamins/Minerals (Therapeutic-M Tab) 1 tab PO DAILY [facility] Last Admin: 09/26/16 10:16 Dose: 1 tab Ondansetron HCl (Zofran Inj) 4 mg IVP Q6H PRN PRN Reason: Nausea/Vomiting Pantoprazole Sodium (Protonix Ec Tab) 40 mg PO ACB [facility] Last Admin: 09/26/16 08:30 Dose: 40 mg Pramipexole Dihydrochloride (Mirapex) 0.25 mg PO TID [facility] Last Admin: 09/26/16 10:16 Dose: 0.25 mg Warfarin Sodium (Coumadin) 3 mg PO 1800 [facility] PRN Reason: Protocol Last Admin: 09/24/16 17:07 Dose: 3 mg Zinc Sulfate (Zinc Sulfate 220 Mg Cap) 220 mg PO DAILY [facility] Last Admin: 09/26/16 10:15 Dose: 220 mg - Labs Labs: 09/20/16 11:45 09/20/16 11:45 PT 20.5 Seconds (9.9-11.8) H 09/25/16 06:00 INR 1.90 (0.93-1.08) H 09/25/16 06:00 APTT 41.0 Seconds (23.7-30.8) H 09/09/16 12:00 Attending/Attestation - Attestation I have personally seen and examined this patient.: Yes I have fully participated in the care of the patient.: Yes I have reviewed all pertinent clinical information, including history, physical exam and plan: Yes Notes (Text): 09/26/16 14:03 attending note; Patient seen and examined with resident medical officer. Patient is a 51 year old male with history of substance abuse (snorts cocaine), tobacco, alcohol abuse was admitted for evaluation of back pain and found to have epidural abscess T1-T5, osteomyelitis, urinary retention and acute RLE DVT. He underwent emergent laminectomy and epidural abscess was drained. He is on meropenem. Repeat MRI thoracic spine showing resolving edema. S/P IVC filter on coumadin. Patient is Paraplegic. Patient hemoglobin is stable. hematuria resolved. multiple stage II sacral decubitus; continue local wound care. Case discussed with social work nurse for discharge planning. Patient is awaiting placement. Continue physical therapy.
--- NOTE | 2016-09-26 12:51 | CP.PCM.PN ---
Addendum entered and electronically signed by Tobin Piedra MD 09/26/16 14 :05: Original Note: <Glenn Rodriguez - Last Filed: 09/26/16 12:49> Subjective - Date & Time of Evaluation Date of Evaluation: 09/24/16 Time of Evaluation: 10:35 - Subjective Subjective: Patient seen and evaluated on 09/24/16. Patient is compliant with PT daily. He continues to experience LE fascinations. He is tolerating diet. Patient as no complaints at this time. Objective - Vital Signs/Intake and Output Vital Signs (last 24 hours): Temp Pulse Resp BP Pulse Ox 97.6 F 60 20 122/81 97 09/26/16 07:30 09/26/16 10:15 09/26/16 07:30 09/26/16 10:15 09/26/16 07:30 Intake and Output: 09/26/16 09/26/16 06:59 18:59 Intake Total 700 Output Total 1300 Balance -600 - Medications Medications: Current Medications Acetaminophen (Tylenol 325mg Tab) 650 mg PO Q4H PRN PRN Reason: Pain, Mild (1-3) Last Admin: 09/25/16 15:33 Dose: 650 mg Ascorbic Acid (Vitamin C 500 Mg Tab) 500 mg PO DAILY [facility] Last Admin: 09/26/16 10:15 Dose: 500 mg Baclofen (Lioresal) 20 mg PO TID [facility] Last Admin: 09/26/16 10:16 Dose: 20 mg Bisacodyl (Dulcolax) 5 mg PO DAILY PRN PRN Reason: Constipation Meropenem 1g/NS 100mL IVPB (Meropenem 1g/Ns 100ml Ivpb) 1 gm in 100 mls @ 100 mls/hr IVPB Q8 DONAL PRN Reason: Protocol Stop: 10/02/16 14:00 Last Admin: 09/26/16 06:45 Dose: 100 mls/hr Metoprolol Tartrate (Lopressor) 25 mg PO BID [facility] Last Admin: 09/26/16 10:15 Dose: 25 mg Multivitamins/Minerals (Therapeutic-M Tab) 1 tab PO DAILY [facility] Last Admin: 09/26/16 10:16 Dose: 1 tab Ondansetron HCl (Zofran Inj) 4 mg IVP Q6H PRN PRN Reason: Nausea/Vomiting Pantoprazole Sodium (Protonix Ec Tab) 40 mg PO ACB [facility] Last Admin: 09/26/16 08:30 Dose: 40 mg Pramipexole Dihydrochloride (Mirapex) 0.25 mg PO TID [facility] Last Admin: 09/26/16 10:16 Dose: 0.25 mg Warfarin Sodium (Coumadin) 3 mg PO 1800 DONAL PRN Reason: Protocol Last Admin: 09/24/16 17:07 Dose: 3 mg Zinc Sulfate (Zinc Sulfate 220 Mg Cap) 220 mg PO DAILY [facility] Last Admin: 09/26/16 10:15 Dose: 220 mg - Labs Labs: 09/20/16 11:45 09/20/16 11:45 PT 20.5 Seconds (9.9-11.8) H 09/25/16 06:00 INR 1.90 (0.93-1.08) H 09/25/16 06:00 APTT 41.0 Seconds (23.7-30.8) H 09/09/16 12:00 - Constitutional Appears: Non-toxic, No Acute Distress - Head Exam Head Exam: ATRAUMATIC, NORMOCEPHALIC - Eye Exam Eye Exam: EOMI, PERRL - ENT Exam ENT Exam: Mucous Membranes Moist - Neck Exam Neck Exam: Full ROM, Normal Inspection - Respiratory Exam Respiratory Exam: Clear to Ausculation Bilateral, NORMAL BREATHING PATTERN - Cardiovascular Exam Cardiovascular Exam: REGULAR RHYTHM, +S1, +S2 - GI/Abdominal Exam GI & Abdominal Exam: Soft, Normal Bowel Sounds - Extremities Exam Extremities Exam: Normal Inspection. 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 Patient is medically stable and awaiting final outpatient planning. Repeat MRI shows resolving osteo. ID is following. Will need to determine eventual discontinuation of abx. 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 abscess has resolved. - Continue meropenem for now - will follow ID recommendations on ultimate duration of therapy. 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 Boots in place - Baclofen 20 mg PO TID - Continue Mirapex R LE DVT s/p IVC filter placed - INR 1.9 - will give coumadin 4mg today. return to 3mg tomorrow - Continue coumadin. will adjust based on INR - Will check INR and labs every other day. will continue to monitor for bleeding - IVC filter in place Neurogenic bowel vs. ileus: resolved. - Full diet but will monitor closely - Dulcolax PO and RC PRN Neurogenic bladder - Mackenzie in place draining light yellow urine multiple stage 2 pressure ulcer on sacrum and buttock - improving - air mattress and continue to reposition q2H - continue multivit, zinc, vitamin C PO - Wound care is following Prophylaxis GI ppx- Protonix DVT ppx- coumadin Dispo: Patient was denies medicare today. He will remain as an inpatient until further planning can be arranged. <Tobin Piedra - Last Filed: 09/26/16 14:03> Objective - Vital Signs/Intake and Output Vital Signs (last 24 hours): Temp Pulse Resp BP Pulse Ox 97.6 F 60 20 122/81 97 09/26/16 07:30 09/26/16 10:15 09/26/16 07:30 09/26/16 10:15 09/26/16 07:30 Intake and Output: 09/26/16 09/26/16 06:59 18:59 Intake Total 700 Output Total 1300 Balance -600 - Medications Medications: Current Medications Acetaminophen (Tylenol 325mg Tab) 650 mg PO Q4H PRN PRN Reason: Pain, Mild (1-3) Last Admin: 09/25/16 15:33 Dose: 650 mg Ascorbic Acid (Vitamin C 500 Mg Tab) 500 mg PO DAILY [facility] Last Admin: 09/26/16 10:15 Dose: 500 mg Baclofen (Lioresal) 20 mg PO TID [facility] Last Admin: 09/26/16 10:16 Dose: 20 mg Bisacodyl (Dulcolax) 5 mg PO DAILY PRN PRN Reason: Constipation Meropenem 1g/NS 100mL IVPB (Meropenem 1g/Ns 100ml Ivpb) 1 gm in 100 mls @ 100 mls/hr IVPB Q8 DONAL PRN Reason: Protocol Stop: 10/02/16 14:00 Last Admin: 09/26/16 06:45 Dose: 100 mls/hr Metoprolol Tartrate (Lopressor) 25 mg PO BID [facility] Last Admin: 09/26/16 10:15 Dose: 25 mg Multivitamins/Minerals (Therapeutic-M Tab) 1 tab PO DAILY [facility] Last Admin: 09/26/16 10:16 Dose: 1 tab Ondansetron HCl (Zofran Inj) 4 mg IVP Q6H PRN PRN Reason: Nausea/Vomiting Pantoprazole Sodium (Protonix Ec Tab) 40 mg PO ACB [facility] Last Admin: 09/26/16 08:30 Dose: 40 mg Pramipexole Dihydrochloride (Mirapex) 0.25 mg PO TID [facility] Last Admin: 09/26/16 10:16 Dose: 0.25 mg Warfarin Sodium (Coumadin) 3 mg PO 1800 DONAL PRN Reason: Protocol Last Admin: 09/24/16 17:07 Dose: 3 mg Zinc Sulfate (Zinc Sulfate 220 Mg Cap) 220 mg PO DAILY [facility] Last Admin: 09/26/16 10:15 Dose: 220 mg - Labs Labs: 09/20/16 11:45 09/20/16 11:45 PT 20.5 Seconds (9.9-11.8) H 09/25/16 06:00 INR 1.90 (0.93-1.08) H 09/25/16 06:00 APTT 41.0 Seconds (23.7-30.8) H 09/09/16 12:00 Attending/Attestation - Attestation I have personally seen and examined this patient.: Yes I have fully participated in the care of the patient.: Yes I have reviewed all pertinent clinical information, including history, physical exam and plan: Yes Notes (Text): 09/26/16 14:03 attending note; Patient seen and examined with medical receptionist. Patient is a 51 year old male with history of substance abuse (snorts cocaine), tobacco, alcohol abuse was admitted for evaluation of back pain and found to have epidural abscess T1-T5, osteomyelitis, urinary retention and acute RLE DVT. He underwent emergent laminectomy and epidural abscess was drained. He is on meropenem. Repeat MRI thoracic spine showing resolving edema. S/P IVC filter on coumadin. Patient is Paraplegic. Patient hemoglobin is stable. hematuria resolved. Patient is awaiting placement. Continue physical therapy. <Miky Hou A - Last Filed: 09/29/16 06:38> Objective - Vital Signs/Intake and Output Vital Signs (last 24 hours): Temp Pulse Resp BP Pulse Ox 98 F 59 L 20 107/66 96 09/28/16 16:00 09/28/16 17:07 09/28/16 16:00 09/28/16 17:07 09/28/16 16:00 Intake and Output: 09/28/16 09/29/16 18:59 06:59 Intake Total 680 720 Output Total 600 600 Balance 80 120 - Medications Medications: Current Medications Acetaminophen (Tylenol 325mg Tab) 650 mg PO Q4H PRN PRN Reason: Pain, Mild (1-3) Last Admin: 09/25/16 15:33 Dose: 650 mg Ascorbic Acid (Vitamin C 500 Mg Tab) 500 mg PO DAILY [facility] Last Admin: 09/28/16 10:12 Dose: 500 mg Baclofen (Lioresal) 20 mg PO TID [facility] Last Admin: 09/28/16 17:08 Dose: 20 mg Bisacodyl (Dulcolax) 5 mg PO DAILY PRN PRN Reason: Constipation Meropenem 1g/NS 100mL IVPB (Meropenem 1g/Ns 100ml Ivpb) 1 gm in 100 mls @ 100 mls/hr IVPB Q8 [facility] PRN Reason: Protocol Stop: 10/02/16 14:00 Last Admin: 09/28/16 21:05 Dose: 100 mls/hr Metoprolol Tartrate (Lopressor) 25 mg PO BID [facility] Last Admin: 09/28/16 17:07 Dose: 25 mg Multivitamins/Minerals (Therapeutic-M Tab) 1 tab PO DAILY [facility] Last Admin: 09/28/16 10:12 Dose: 1 tab Ondansetron HCl (Zofran Inj) 4 mg IVP Q6H PRN PRN Reason: Nausea/Vomiting Pantoprazole Sodium (Protonix Ec Tab) 40 mg PO ACB [facility] Last Admin: 09/28/16 08:03 Dose: 40 mg Pramipexole Dihydrochloride (Mirapex) 0.25 mg PO TID [facility] Last Admin: 09/28/16 17:08 Dose: 0.25 mg Silver Sulfadiazine (Silvadene 1% 20 Gm) 0 ea TOP BID [facility] Last Admin: 09/28/16 17:08 Dose: 1 applic Warfarin Sodium (Coumadin) 7.5 mg PO 1800 [facility] PRN Reason: Protocol Zinc Sulfate (Zinc Sulfate 220 Mg Cap) 220 mg PO DAILY [facility] Last Admin: 09/28/16 10:12 Dose: 220 mg - Labs Labs: 09/20/16 11:45 09/20/16 11:45 PT 15.7 Seconds (9.9-11.8) H 09/28/16 14:25 INR 1.45 (0.93-1.08) H 09/28/16 14:25 APTT 41.0 Seconds (23.7-30.8) H 09/09/16 12:00 Attending/Attestation - Attestation I have personally seen and examined this patient.: Yes I have fully participated in the care of the patient.: Yes I have reviewed all pertinent clinical information, including history, physical exam and plan: Yes Notes (Text): This is for progress note on 09/24/16 51 year old male with past medical history of drug and alcohol abuse who presented with back pain. He was found to have epidural abscess T1-T5 and osteomyelitis. He underwent emergent laminectomy and the epidural abscess was drained. He is on iv antibiotics. ID is following. Repeat MRI spine yesterday was reviewed. He was also found to have urinary retention and hematuria for which he was seen by urology. He has acute right lower extremity DVT. He is s/p IVC filter. He is currently on coumadin. Continue with pain management. Continue with physical therapy. Miky Hou MD Hospitalist.
[2016-09-27] MEDS: Meropenem 1g/NS 100mL IVPB 1 GM/100 ML PIGGYBACK IVPB SCH ×2 (05:47→21:41)
[2016-09-27] MEDS: Pantoprazole 40 mg EC Tab PO SCH (09:04)
[2016-09-27] MEDS: Multivitamin With Minerals Tab PO SCH (09:04)
--- NOTE | 2016-09-27 11:23 | CP.PCM.PN ---
Subjective - Date & Time of Evaluation Date of Evaluation: 09/27/16 Time of Evaluation: 08:30 - Subjective Subjective: UNCHANGED Objective - Vital Signs/Intake and Output Vital Signs (last 24 hours): Temp Pulse Resp BP Pulse Ox 97.5 F L 55 L 20 123/84 94 L 09/27/16 07:32 09/27/16 07:32 09/27/16 07:32 09/27/16 09:04 09/27/16 09:51 Intake and Output: 09/27/16 09/27/16 06:59 18:59 Intake Total 760 Output Total 1200 Balance -440 - Medications Medications: Current Medications Acetaminophen (Tylenol 325mg Tab) 650 mg PO Q4H PRN PRN Reason: Pain, Mild (1-3) Last Admin: 09/25/16 15:33 Dose: 650 mg Ascorbic Acid (Vitamin C 500 Mg Tab) 500 mg PO DAILY [facility] Last Admin: 09/27/16 09:04 Dose: 500 mg Baclofen (Lioresal) 20 mg PO TID [facility] Last Admin: 09/27/16 09:04 Dose: 20 mg Bisacodyl (Dulcolax) 5 mg PO DAILY PRN PRN Reason: Constipation Meropenem 1g/NS 100mL IVPB (Meropenem 1g/Ns 100ml Ivpb) 1 gm in 100 mls @ 100 mls/hr IVPB Q8 DONAL PRN Reason: Protocol Stop: 10/02/16 14:00 Last Admin: 09/27/16 05:47 Dose: 100 mls/hr Metoprolol Tartrate (Lopressor) 25 mg PO BID [facility] Last Admin: 09/27/16 09:04 Dose: 25 mg Multivitamins/Minerals (Therapeutic-M Tab) 1 tab PO DAILY [facility] Last Admin: 09/27/16 09:04 Dose: 1 tab Ondansetron HCl (Zofran Inj) 4 mg IVP Q6H PRN PRN Reason: Nausea/Vomiting Pantoprazole Sodium (Protonix Ec Tab) 40 mg PO ACB [facility] Last Admin: 09/27/16 09:04 Dose: 40 mg Pramipexole Dihydrochloride (Mirapex) 0.25 mg PO TID [facility] Last Admin: 09/27/16 09:04 Dose: 0.25 mg Silver Sulfadiazine (Silvadene 1% 20 Gm) 0 ea TOP BID [facility] Warfarin Sodium (Coumadin) 3 mg PO 1800 DONAL PRN Reason: Protocol Last Admin: 09/26/16 19:56 Dose: 3 mg Zinc Sulfate (Zinc Sulfate 220 Mg Cap) 220 mg PO DAILY [facility] Last Admin: 09/27/16 09:03 Dose: 220 mg - Labs Labs: 09/20/16 11:45 09/20/16 11:45 PT 20.5 Seconds (9.9-11.8) H 09/25/16 06:00 INR 1.90 (0.93-1.08) H 09/25/16 06:00 APTT 41.0 Seconds (23.7-30.8) H 09/09/16 12:00 - Constitutional Appears: Well - Head Exam Head Exam: ATRAUMATIC, NORMAL INSPECTION, NORMOCEPHALIC - Eye Exam Eye Exam: EOMI, Normal appearance, PERRL Pupil Exam: NORMAL ACCOMODATION, PERRL - ENT Exam ENT Exam: Mucous Membranes Moist, Normal Exam - Neck Exam Neck Exam: Full ROM, Normal Inspection. absent: Lymphadenopathy - Respiratory Exam Respiratory Exam: Clear to Ausculation Bilateral, NORMAL BREATHING PATTERN - Cardiovascular Exam Cardiovascular Exam: REGULAR RHYTHM, +S1, +S2. absent: Murmur - GI/Abdominal Exam GI & Abdominal Exam: Soft, Normal Bowel Sounds. absent: Tenderness - Rectal Exam Rectal Exam: NORMAL INSPECTION - Exam Exam: Circumcision, NORMAL INSPECTION External exam: NORMAL EXTERNAL EXAM Speculum exam: NORMAL SPECULUM EXAM Bimanual exam: NORMAL BIMANUAL EXAM - Extremities Exam Extremities Exam: Full ROM, Normal Capillary Refill, Normal Inspection. absent : Joint Swelling, Pedal Edema - Back Exam Back Exam: NORMAL INSPECTION - Neurological Exam Neurological Exam: Alert, Awake, CN II-XII Intact, Normal Gait, Oriented x3 - Psychiatric Exam Psychiatric exam: Normal Affect, Normal Mood - Skin Skin Exam: Dry, Intact, Normal Color, Warm Assessment and Plan (1) Epidural abscess Status: Acute - Assessment and Plan (Free Text) Plan: ON MERR
[2016-09-27] MEDS: Silver Sulfadiazine 1% Cream (20 gm) TOP SCH (11:38)
--- NOTE | 2016-09-27 22:49 | CP.PCM.PN ---
Subjective - Date & Time of Evaluation Date of Evaluation: 09/27/16 Time of Evaluation: 11:00 - Subjective Subjective: Patient seen and examined at bedside. Overnight issues reported. He denies any new complaints. Vitals, labs and notes reviewed. Objective - Vital Signs/Intake and Output Vital Signs (last 24 hours): Temp Pulse Resp BP Pulse Ox 97.5 F L 55 L 20 123/84 94 L 09/27/16 07:32 09/27/16 07:32 09/27/16 07:32 09/27/16 09:04 09/27/16 09:51 Intake and Output: 09/27/16 09/28/16 18:59 06:59 Intake Total 540 660 Output Total 900 301 Balance -360 359 - Medications Medications: Current Medications Acetaminophen (Tylenol 325mg Tab) 650 mg PO Q4H PRN PRN Reason: Pain, Mild (1-3) Last Admin: 09/25/16 15:33 Dose: 650 mg Ascorbic Acid (Vitamin C 500 Mg Tab) 500 mg PO DAILY [facility] Last Admin: 09/27/16 09:04 Dose: 500 mg Baclofen (Lioresal) 20 mg PO TID [facility] Last Admin: 09/27/16 09:04 Dose: 20 mg Bisacodyl (Dulcolax) 5 mg PO DAILY PRN PRN Reason: Constipation Meropenem 1g/NS 100mL IVPB (Meropenem 1g/Ns 100ml Ivpb) 1 gm in 100 mls @ 100 mls/hr IVPB Q8 DONAL PRN Reason: Protocol Stop: 10/02/16 14:00 Last Admin: 09/27/16 21:41 Dose: 100 mls/hr Metoprolol Tartrate (Lopressor) 25 mg PO BID [facility] Last Admin: 09/27/16 09:04 Dose: 25 mg Multivitamins/Minerals (Therapeutic-M Tab) 1 tab PO DAILY [facility] Last Admin: 09/27/16 09:04 Dose: 1 tab Ondansetron HCl (Zofran Inj) 4 mg IVP Q6H PRN PRN Reason: Nausea/Vomiting Pantoprazole Sodium (Protonix Ec Tab) 40 mg PO ACB [facility] Last Admin: 09/27/16 09:04 Dose: 40 mg Pramipexole Dihydrochloride (Mirapex) 0.25 mg PO TID [facility] Last Admin: 09/27/16 09:04 Dose: 0.25 mg Silver Sulfadiazine (Silvadene 1% 20 Gm) 0 ea TOP BID [facility] Last Admin: 09/27/16 11:38 Dose: 1 applic Warfarin Sodium (Coumadin) 3 mg PO 1800 [facility] PRN Reason: Protocol Last Admin: 09/26/16 19:56 Dose: 3 mg Zinc Sulfate (Zinc Sulfate 220 Mg Cap) 220 mg PO DAILY [facility] Last Admin: 09/27/16 09:03 Dose: 220 mg - Labs Labs: 09/20/16 11:45 09/20/16 11:45 PT 20.5 Seconds (9.9-11.8) H 09/25/16 06:00 INR 1.90 (0.93-1.08) H 09/25/16 06:00 APTT 41.0 Seconds (23.7-30.8) H 09/09/16 12:00 - Constitutional Appears: Well, Non-toxic, No Acute Distress - Head Exam Head Exam: ATRAUMATIC, NORMAL INSPECTION - Eye Exam Eye Exam: EOMI, Normal appearance, PERRL - ENT Exam ENT Exam: Mucous Membranes Moist, Normal Exam - Neck Exam Neck Exam: Full ROM, Normal Inspection - Respiratory Exam Respiratory Exam: Clear to Ausculation Bilateral, NORMAL BREATHING PATTERN - Cardiovascular Exam Cardiovascular Exam: RRR, +S1, +S2 - GI/Abdominal Exam GI & Abdominal Exam: Soft, Normal Bowel Sounds - Rectal Exam Rectal Exam: Deferred - Extremities Exam Extremities Exam: Normal Capillary Refill, Normal Inspection - Back Exam Back Exam: Full ROM - Neurological Exam Neurological Exam: Alert, Oriented x3 Neuro motor strength exam: Left Lower Extremity: 0, Right Lower Extremity: 0 - Psychiatric Exam Psychiatric exam: Normal Mood - Skin Skin Exam: Normal Color, Warm Assessment and Plan - Assessment and Plan (Free Text) Plan: 51 year old male s/p T2-T4 laminectomy on 07/07/16 with paralysis of LE, US of LE showed R LE DVT s/p IVC filter and warfarin. Patient is medically stable and awaiting final outpatient planning. Repeat MRI shows resolving osteo. ID is following. 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 abscess has resolved. 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 Boots in place - Baclofen 20 mg PO TID - Continue Mirapex R LE DVT s/p IVC filter placed - INR 1.9 - will give coumadin 4mg today. return to 3mg tomorrow - Continue coumadin. will adjust based on INR - Will check INR and labs every other day. will continue to monitor for bleeding - IVC filter in place Neurogenic bowel vs. ileus: resolved. Neurogenic bladder - Mackenzie in place draining light yellow urine multiple stage 2 pressure ulcer on sacrum and buttock - improving - air mattress and continue to reposition q2H - continue multivit, zinc, vitamin C PO - Wound care is following Prophylaxis GI ppx- Protonix DVT ppx- coumadin
[2016-09-28] MEDS: Meropenem 1g/NS 100mL IVPB 1 GM/100 ML PIGGYBACK IVPB SCH ×3 (06:08→21:05)
[2016-09-28] MEDS: Pantoprazole 40 mg EC Tab PO SCH (08:03)
--- NOTE | 2016-09-28 09:01 | CP.PCM.PN ---
<Glenn Rodriguez - Last Filed: 09/28/16 08:58> Subjective - Date & Time of Evaluation Date of Evaluation: 09/28/16 Time of Evaluation: 08:58 - Subjective Subjective: Patient seen and examined. No acute events overnight. Participating in PT. Continues to experience LE fascinations. Reports some sensation to medial thigh b/l and left lateral foot. Objective - Vital Signs/Intake and Output Vital Signs (last 24 hours): Temp Pulse Resp BP Pulse Ox 97.6 F 61 20 125/83 98 09/28/16 08:37 09/28/16 08:37 09/28/16 08:37 09/28/16 08:37 09/28/16 08:37 Intake and Output: 09/28/16 09/28/16 06:59 18:59 Intake Total 840 Output Total 851 Balance -11 - Medications Medications: Current Medications Acetaminophen (Tylenol 325mg Tab) 650 mg PO Q4H PRN PRN Reason: Pain, Mild (1-3) Last Admin: 09/25/16 15:33 Dose: 650 mg Ascorbic Acid (Vitamin C 500 Mg Tab) 500 mg PO DAILY [facility] Last Admin: 09/27/16 09:04 Dose: 500 mg Baclofen (Lioresal) 20 mg PO TID [facility] Last Admin: 09/27/16 09:04 Dose: 20 mg Bisacodyl (Dulcolax) 5 mg PO DAILY PRN PRN Reason: Constipation Meropenem 1g/NS 100mL IVPB (Meropenem 1g/Ns 100ml Ivpb) 1 gm in 100 mls @ 100 mls/hr IVPB Q8 [facility] PRN Reason: Protocol Stop: 10/02/16 14:00 Last Admin: 09/28/16 06:08 Dose: 100 mls/hr Metoprolol Tartrate (Lopressor) 25 mg PO BID [facility] Last Admin: 09/27/16 09:04 Dose: 25 mg Multivitamins/Minerals (Therapeutic-M Tab) 1 tab PO DAILY [facility] Last Admin: 09/27/16 09:04 Dose: 1 tab Ondansetron HCl (Zofran Inj) 4 mg IVP Q6H PRN PRN Reason: Nausea/Vomiting Pantoprazole Sodium (Protonix Ec Tab) 40 mg PO ACB [facility] Last Admin: 09/28/16 08:03 Dose: 40 mg Pramipexole Dihydrochloride (Mirapex) 0.25 mg PO TID [facility] Last Admin: 09/27/16 09:04 Dose: 0.25 mg Silver Sulfadiazine (Silvadene 1% 20 Gm) 0 ea TOP BID [facility] Last Admin: 09/27/16 11:38 Dose: 1 applic Warfarin Sodium (Coumadin) 3 mg PO 1800 [facility] PRN Reason: Protocol Last Admin: 09/26/16 19:56 Dose: 3 mg Zinc Sulfate (Zinc Sulfate 220 Mg Cap) 220 mg PO DAILY [facility] Last Admin: 09/27/16 09:03 Dose: 220 mg - Labs Labs: 09/20/16 11:45 09/20/16 11:45 PT 20.5 Seconds (9.9-11.8) H 09/25/16 06:00 INR 1.90 (0.93-1.08) H 09/25/16 06:00 APTT 41.0 Seconds (23.7-30.8) H 09/09/16 12:00 - Constitutional Appears: Non-toxic, No Acute Distress - Head Exam Head Exam: ATRAUMATIC, NORMOCEPHALIC - Eye Exam Eye Exam: EOMI, PERRL - ENT Exam ENT Exam: Mucous Membranes Moist - Neck Exam Neck Exam: Full ROM, Normal Inspection - Respiratory Exam Respiratory Exam: Clear to Ausculation Bilateral. absent: Rales, Rhonchi - Cardiovascular Exam Cardiovascular Exam: REGULAR RHYTHM, +S1, +S2 - GI/Abdominal Exam GI & Abdominal Exam: absent: Soft, Tenderness - Extremities Exam Extremities Exam: Normal Inspection. absent: Full ROM - Neurological Exam Neurological Exam: Alert, Awake, Oriented x3 Neuro motor strength exam: Left Lower Extremity: 0, Right Lower Extremity: 0 - Psychiatric Exam Psychiatric exam: Normal Affect, Normal Mood - Skin Skin Exam: Dry, Warm Assessment and Plan - Assessment and Plan (Free Text) Assessment: 51 year old male s/p T2-T4 laminectomy on 07/07/16 with paralysis of LE, US of LE showed R LE DVT s/p IVC filter and warfarin. Patient is medically stable and awaiting final outpatient planning. Repeat MRI shows resolving osteo. ID is following. 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 abscess has resolved. - Continue meropenem. 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 Boots in place - Baclofen 20 mg PO TID - Continue Mirapex R LE DVT s/p IVC filter placed - INR 1.9 - will give coumadin 4mg today. return to 3mg tomorrow - Continue coumadin. will adjust based on INR - Will check INR and labs every other day. will continue to monitor for bleeding - IVC filter in place Neurogenic bowel vs. ileus: resolved. Neurogenic bladder - Mackenzie in place draining light yellow urine multiple stage 2 pressure ulcer on sacrum and buttock - improving - air mattress and continue to reposition q2H - continue multivit, zinc, vitamin C PO - Wound care is following Prophylaxis GI ppx- Protonix DVT ppx- coumadin <Derrick Chandra - Last Filed: 09/28/16 18:23> Objective - Vital Signs/Intake and Output Vital Signs (last 24 hours): Temp Pulse Resp BP Pulse Ox 98 F 59 L 20 107/66 96 09/28/16 16:00 09/28/16 17:07 09/28/16 16:00 09/28/16 17:07 09/28/16 16:00 Intake and Output: 09/28/16 09/28/16 06:59 18:59 Intake Total 840 680 Output Total 851 600 Balance -11 80 - Medications Medications: Current Medications Acetaminophen (Tylenol 325mg Tab) 650 mg PO Q4H PRN PRN Reason: Pain, Mild (1-3) Last Admin: 09/25/16 15:33 Dose: 650 mg Ascorbic Acid (Vitamin C 500 Mg Tab) 500 mg PO DAILY [facility] Last Admin: 09/28/16 10:12 Dose: 500 mg Baclofen (Lioresal) 20 mg PO TID [facility] Last Admin: 09/28/16 17:08 Dose: 20 mg Bisacodyl (Dulcolax) 5 mg PO DAILY PRN PRN Reason: Constipation Meropenem 1g/NS 100mL IVPB (Meropenem 1g/Ns 100ml Ivpb) 1 gm in 100 mls @ 100 mls/hr IVPB Q8 [facility] PRN Reason: Protocol Stop: 10/02/16 14:00 Last Admin: 09/28/16 13:10 Dose: 100 mls/hr Metoprolol Tartrate (Lopressor) 25 mg PO BID [facility] Last Admin: 09/28/16 17:07 Dose: 25 mg Multivitamins/Minerals (Therapeutic-M Tab) 1 tab PO DAILY [facility] Last Admin: 09/28/16 10:12 Dose: 1 tab Ondansetron HCl (Zofran Inj) 4 mg IVP Q6H PRN PRN Reason: Nausea/Vomiting Pantoprazole Sodium (Protonix Ec Tab) 40 mg PO ACB [facility] Last Admin: 09/28/16 08:03 Dose: 40 mg Pramipexole Dihydrochloride (Mirapex) 0.25 mg PO TID [facility] Last Admin: 09/28/16 17:08 Dose: 0.25 mg Silver Sulfadiazine (Silvadene 1% 20 Gm) 0 ea TOP BID [facility] Last Admin: 09/28/16 17:08 Dose: 1 applic Warfarin Sodium (Coumadin) 7.5 mg PO 1800 [facility] PRN Reason: Protocol Zinc Sulfate (Zinc Sulfate 220 Mg Cap) 220 mg PO DAILY [facility] Last Admin: 09/28/16 10:12 Dose: 220 mg - Labs Labs: 09/20/16 11:45 09/20/16 11:45 PT 15.7 Seconds (9.9-11.8) H 09/28/16 14:25 INR 1.45 (0.93-1.08) H 09/28/16 14:25 APTT 41.0 Seconds (23.7-30.8) H 09/09/16 12:00 Attending/Attestation - Attestation I have personally seen and examined this patient.: Yes I have fully participated in the care of the patient.: Yes I have reviewed all pertinent clinical information, including history, physical exam and plan: Yes Notes (Text): 09/28/16 18:21 patient seen and examined at bedside. No overnight issues reported. INR sub- therapeutic and coumadin will be up titrated. Continue antibiotics per ID. Wound care daily. PT daily and OOB to chair with 2 assist. Agree with the remainder of the plan outlined by the resident.
[2016-09-28] MEDS: Multivitamin With Minerals Tab PO SCH (10:12)
--- NOTE | 2016-09-28 11:13 | CP.PCM.PN ---
Subjective - Date & Time of Evaluation Date of Evaluation: 09/28/16 Time of Evaluation: 09:40 - Subjective Subjective: UNCHANGED Objective - Vital Signs/Intake and Output Vital Signs (last 24 hours): Temp Pulse Resp BP Pulse Ox 97.6 F 61 20 125/83 98 09/28/16 08:37 09/28/16 10:17 09/28/16 08:37 09/28/16 10:17 09/28/16 08:37 Intake and Output: 09/28/16 09/28/16 06:59 18:59 Intake Total 840 Output Total 851 Balance -11 - Medications Medications: Current Medications Acetaminophen (Tylenol 325mg Tab) 650 mg PO Q4H PRN PRN Reason: Pain, Mild (1-3) Last Admin: 09/25/16 15:33 Dose: 650 mg Ascorbic Acid (Vitamin C 500 Mg Tab) 500 mg PO DAILY [facility] Last Admin: 09/28/16 10:12 Dose: 500 mg Baclofen (Lioresal) 20 mg PO TID [facility] Last Admin: 09/28/16 10:12 Dose: 20 mg Bisacodyl (Dulcolax) 5 mg PO DAILY PRN PRN Reason: Constipation Meropenem 1g/NS 100mL IVPB (Meropenem 1g/Ns 100ml Ivpb) 1 gm in 100 mls @ 100 mls/hr IVPB Q8 [facility] PRN Reason: Protocol Stop: 10/02/16 14:00 Last Admin: 09/28/16 06:08 Dose: 100 mls/hr Metoprolol Tartrate (Lopressor) 25 mg PO BID [facility] Last Admin: 09/28/16 10:17 Dose: 25 mg Multivitamins/Minerals (Therapeutic-M Tab) 1 tab PO DAILY [facility] Last Admin: 09/28/16 10:12 Dose: 1 tab Ondansetron HCl (Zofran Inj) 4 mg IVP Q6H PRN PRN Reason: Nausea/Vomiting Pantoprazole Sodium (Protonix Ec Tab) 40 mg PO ACB [facility] Last Admin: 09/28/16 08:03 Dose: 40 mg Pramipexole Dihydrochloride (Mirapex) 0.25 mg PO TID [facility] Last Admin: 09/28/16 10:12 Dose: 0.25 mg Silver Sulfadiazine (Silvadene 1% 20 Gm) 0 ea TOP BID [facility] Last Admin: 09/27/16 11:38 Dose: 1 applic Warfarin Sodium (Coumadin) 3 mg PO 1800 [facility] PRN Reason: Protocol Last Admin: 09/26/16 19:56 Dose: 3 mg Zinc Sulfate (Zinc Sulfate 220 Mg Cap) 220 mg PO DAILY [facility] Last Admin: 09/28/16 10:12 Dose: 220 mg - Labs Labs: 09/20/16 11:45 09/20/16 11:45 PT 20.5 Seconds (9.9-11.8) H 09/25/16 06:00 INR 1.90 (0.93-1.08) H 09/25/16 06:00 APTT 41.0 Seconds (23.7-30.8) H 09/09/16 12:00 - Constitutional Appears: Well - Head Exam Head Exam: ATRAUMATIC, NORMAL INSPECTION, NORMOCEPHALIC - Eye Exam Eye Exam: EOMI, Normal appearance, PERRL Pupil Exam: NORMAL ACCOMODATION, PERRL - ENT Exam ENT Exam: Mucous Membranes Moist, Normal Exam - Neck Exam Neck Exam: Full ROM, Normal Inspection. absent: Lymphadenopathy - Respiratory Exam Respiratory Exam: Clear to Ausculation Bilateral, NORMAL BREATHING PATTERN - Cardiovascular Exam Cardiovascular Exam: REGULAR RHYTHM, +S1, +S2. absent: Murmur - GI/Abdominal Exam GI & Abdominal Exam: Soft, Normal Bowel Sounds. absent: Tenderness - Rectal Exam Rectal Exam: NORMAL INSPECTION - Exam Exam: Circumcision, NORMAL INSPECTION External exam: NORMAL EXTERNAL EXAM Speculum exam: NORMAL SPECULUM EXAM Bimanual exam: NORMAL BIMANUAL EXAM - Extremities Exam Extremities Exam: Full ROM, Normal Capillary Refill, Normal Inspection. absent : Joint Swelling, Pedal Edema - Back Exam Back Exam: NORMAL INSPECTION - Neurological Exam Neurological Exam: Alert, Awake, CN II-XII Intact, Normal Gait, Oriented x3 - Psychiatric Exam Psychiatric exam: Normal Affect, Normal Mood - Skin Skin Exam: Dry, Intact, Normal Color, Warm Assessment and Plan (1) Epidural abscess Status: Acute - Assessment and Plan (Free Text) Plan: RADHAR
[2016-09-28 14:44] LABS: INR 1.45 (0.93-1.08); PROTHROMBIN TIME 15.7 Seconds (9.9-11.8)
[2016-09-28] MEDS: Silver Sulfadiazine 1% Cream (20 gm) TOP SCH (17:08)
[2016-09-29] MEDS: Meropenem 1g/NS 100mL IVPB 1 GM/100 ML PIGGYBACK IVPB SCH ×3 (06:53→21:34)
[2016-09-29] MEDS: Pantoprazole 40 mg EC Tab PO SCH (08:26)
[2016-09-29] MEDS: Multivitamin With Minerals Tab PO SCH (09:36)
[2016-09-29] MEDS: Silver Sulfadiazine 1% Cream (20 gm) TOP SCH ×2 (09:36→18:00)
--- NOTE | 2016-09-29 10:19 | CP.PCM.PN ---
Subjective - Date & Time of Evaluation Date of Evaluation: 09/29/16 Time of Evaluation: 09:00 - Subjective Subjective: UNCHANGED Objective - Vital Signs/Intake and Output Vital Signs (last 24 hours): Temp Pulse Resp BP Pulse Ox 97.3 F L 64 20 124/78 94 L 09/29/16 07:30 09/29/16 09:38 09/29/16 07:30 09/29/16 09:38 09/29/16 07:30 Intake and Output: 09/29/16 09/29/16 06:59 18:59 Intake Total 720 Output Total 1100 Balance -380 - Medications Medications: Current Medications Acetaminophen (Tylenol 325mg Tab) 650 mg PO Q4H PRN PRN Reason: Pain, Mild (1-3) Last Admin: 09/25/16 15:33 Dose: 650 mg Ascorbic Acid (Vitamin C 500 Mg Tab) 500 mg PO DAILY [facility] Last Admin: 09/29/16 09:39 Dose: 500 mg Baclofen (Lioresal) 20 mg PO TID [facility] Last Admin: 09/29/16 09:37 Dose: 20 mg Bisacodyl (Dulcolax) 5 mg PO DAILY PRN PRN Reason: Constipation Meropenem 1g/NS 100mL IVPB (Meropenem 1g/Ns 100ml Ivpb) 1 gm in 100 mls @ 100 mls/hr IVPB Q8 [facility] PRN Reason: Protocol Stop: 10/02/16 14:00 Last Admin: 09/29/16 06:53 Dose: 100 mls/hr Metoprolol Tartrate (Lopressor) 25 mg PO BID [facility] [place] Last Admin: 09/29/16 09:38 Dose: 25 mg Multivitamins/Minerals (Therapeutic-M Tab) 1 tab PO DAILY [facility] [place] Last Admin: 09/29/16 09:36 Dose: 1 tab Ondansetron HCl (Zofran Inj) 4 mg IVP Q6H PRN PRN Reason: Nausea/Vomiting Pantoprazole Sodium (Protonix Ec Tab) 40 mg PO ACB [facility] [place] Last Admin: 09/29/16 08:26 Dose: 40 mg Pramipexole Dihydrochloride (Mirapex) 0.25 mg PO TID [facility] [place] Last Admin: 09/29/16 09:36 Dose: 0.25 mg Silver Sulfadiazine (Silvadene 1% 20 Gm) 0 ea TOP BID [facility] [place] Last Admin: 09/29/16 09:36 Dose: 1 applic Warfarin Sodium (Coumadin) 7.5 mg PO 1800 [facility] [place] PRN Reason: Protocol Zinc Sulfate (Zinc Sulfate 220 Mg Cap) 220 mg PO DAILY [facility] [place] Last Admin: 09/29/16 09:36 Dose: 220 mg - Labs Labs: 09/20/16 11:45 09/20/16 11:45 PT 15.7 Seconds (9.9-11.8) H 09/28/16 14:25 INR 1.45 (0.93-1.08) H 09/28/16 14:25 APTT 41.0 Seconds (23.7-30.8) H 09/09/16 12:00 - Constitutional Appears: Well - Head Exam Head Exam: ATRAUMATIC, NORMAL INSPECTION, NORMOCEPHALIC - Eye Exam Eye Exam: EOMI, Normal appearance, PERRL Pupil Exam: NORMAL ACCOMODATION, PERRL - ENT Exam ENT Exam: Mucous Membranes Moist, Normal Exam - Neck Exam Neck Exam: Full ROM, Normal Inspection. absent: Lymphadenopathy - Respiratory Exam Respiratory Exam: Clear to Ausculation Bilateral, NORMAL BREATHING PATTERN - Cardiovascular Exam Cardiovascular Exam: REGULAR RHYTHM, +S1, +S2. absent: Murmur - GI/Abdominal Exam GI & Abdominal Exam: Soft, Normal Bowel Sounds. absent: Tenderness - Rectal Exam Rectal Exam: NORMAL INSPECTION - Exam Exam: Circumcision, NORMAL INSPECTION External exam: NORMAL EXTERNAL EXAM Speculum exam: NORMAL SPECULUM EXAM Bimanual exam: NORMAL BIMANUAL EXAM - Extremities Exam Extremities Exam: Full ROM, Normal Capillary Refill, Normal Inspection. absent : Joint Swelling, Pedal Edema - Back Exam Back Exam: NORMAL INSPECTION - Neurological Exam Neurological Exam: Alert, Awake, CN II-XII Intact, Normal Gait, Oriented x3 - Psychiatric Exam Psychiatric exam: Normal Affect, Normal Mood - Skin Skin Exam: Dry, Intact, Normal Color, Warm Assessment and Plan (1) Epidural abscess Status: Acute - Assessment and Plan (Free Text) Plan: ON MERR
[2016-09-29 12:22] LABS: INR 1.44 (0.93-1.08); PROTHROMBIN TIME 15.6 Seconds (9.9-11.8)
--- NOTE | 2016-09-29 17:13 | CP.PCM.PN ---
<STALIN PURDY - Last Filed: 09/29/16 18:14> Subjective - Date & Time of Evaluation Date of Evaluation: 09/29/16 Time of Evaluation: 11:25 - Subjective Subjective: Medicine Progress Note: Pt was seen and examined at bedside. No complaints. Pt denied headache, dizziness, fever, chest pain, difficulty breathing, or abdominal pain. Objective - Vital Signs/Intake and Output Vital Signs (last 24 hours): Temp Pulse Resp BP Pulse Ox 97.9 F 59 L 20 116/73 97 09/29/16 16:31 09/29/16 16:31 09/29/16 16:31 09/29/16 16:31 09/29/16 16:31 Intake and Output: 09/29/16 09/29/16 06:59 18:59 Intake Total 720 Output Total 1100 Balance -380 - Medications Medications: Current Medications Acetaminophen (Tylenol 325mg Tab) 650 mg PO Q4H PRN PRN Reason: Pain, Mild (1-3) Last Admin: 09/29/16 13:13 Dose: 650 mg Ascorbic Acid (Vitamin C 500 Mg Tab) 500 mg PO DAILY [facility] Last Admin: 09/29/16 09:39 Dose: 500 mg Baclofen (Lioresal) 20 mg PO TID [facility] Last Admin: 09/29/16 13:12 Dose: 20 mg Bisacodyl (Dulcolax) 5 mg PO DAILY PRN PRN Reason: Constipation Meropenem 1g/NS 100mL IVPB (Meropenem 1g/Ns 100ml Ivpb) 1 gm in 100 mls @ 100 mls/hr IVPB Q8 [facility] PRN Reason: Protocol Stop: 10/02/16 14:00 Last Admin: 09/29/16 13:44 Dose: 100 mls/hr Metoprolol Tartrate (Lopressor) 25 mg PO BID [facility] Last Admin: 09/29/16 09:38 Dose: 25 mg Multivitamins/Minerals (Therapeutic-M Tab) 1 tab PO DAILY [facility] Last Admin: 09/29/16 09:36 Dose: 1 tab Ondansetron HCl (Zofran Inj) 4 mg IVP Q6H PRN PRN Reason: Nausea/Vomiting Pantoprazole Sodium (Protonix Ec Tab) 40 mg PO ACB [facility] Last Admin: 09/29/16 08:26 Dose: 40 mg Pramipexole Dihydrochloride (Mirapex) 0.25 mg PO TID [facility] Last Admin: 09/29/16 13:12 Dose: 0.25 mg Silver Sulfadiazine (Silvadene 1% 20 Gm) 0 ea TOP BID [facility] Last Admin: 09/29/16 09:36 Dose: 1 applic Warfarin Sodium (Coumadin) 7.5 mg PO 1800 [facility] PRN Reason: Protocol Zinc Sulfate (Zinc Sulfate 220 Mg Cap) 220 mg PO DAILY [facility] Last Admin: 09/29/16 09:36 Dose: 220 mg - Labs Labs: 09/20/16 11:45 09/20/16 11:45 PT 15.6 Seconds (9.9-11.8) H 09/29/16 11:57 INR 1.44 (0.93-1.08) H 09/29/16 11:57 APTT 41.0 Seconds (23.7-30.8) H 09/09/16 12:00 - Constitutional Appears: No Acute Distress - Head Exam Head Exam: ATRAUMATIC, NORMAL INSPECTION - Eye Exam Eye Exam: EOMI, Normal appearance - ENT Exam ENT Exam: Mucous Membranes Moist, Normal Exam - Neck Exam Neck Exam: Full ROM - Respiratory Exam Respiratory Exam: Clear to Ausculation Bilateral, NORMAL BREATHING PATTERN. absent: Rales, Rhonchi, Wheezes - Cardiovascular Exam Cardiovascular Exam: REGULAR RHYTHM, +S1, +S2. absent: Murmur - GI/Abdominal Exam GI & Abdominal Exam: Soft. absent: Distended - Extremities Exam Extremities Exam: absent: Calf Tenderness, Pedal Edema - Back Exam Additional comments: Incision site with no erythema or discharge - Neurological Exam Neurological Exam: Alert, Awake, Motor Sensory Deficit, Oriented x3 - Psychiatric Exam Psychiatric exam: Normal Affect, Normal Mood - Skin Skin Exam: Dry, Intact, Normal Color, Warm Assessment and Plan - Assessment and Plan (Free Text) Assessment: 51 year old male s/p T2-T4 laminectomy on 07/07/16 with paralysis of LE, US of LE showed R LE DVT s/p IVC filter and warfarin. Patient stable and awaiting final placement in outpatient setting. Repeat MRI shows improving osteo. ID is on board. 1.Epidural space abscess s/p lamenectomy T2-T4 - Trend ESR, CRP - MRI lumbar/thoracic spine resolving osteomyelitis, discitis and abscess has resolved - Cont meropenem - Pain controlled with tramadol 2. 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 R LE DVT s/p IVC filter placed - INR 1.45 so returned to 3mg coumadin - Continue coumadin. will adjust based on INR - Will check INR and labs qod and continue to assess for bleeding - IVC filter in place 4. Neurogenic bladder - Mackenzie in place 5. Several stage 2 pressure ulcer on lower back - improving - air mattress and continue to reposition q2H - continue multivitamin, zinc, vit. C PO - Wound care is on board 6. GI/DVT ppx Protonix/coumadin <Miky Hou - Last Filed: 09/30/16 07:42> Objective - Vital Signs/Intake and Output Vital Signs (last 24 hours): Temp Pulse Resp BP Pulse Ox 97.9 F 62 20 116/73 97 09/29/16 16:31 09/29/16 18:05 09/29/16 16:31 09/29/16 18:05 09/29/16 16:31 Intake and Output: 09/30/16 09/30/16 06:59 18:59 Intake Total 1160 Output Total 1300 Balance -140 - Medications Medications: Current Medications Acetaminophen (Tylenol 325mg Tab) 650 mg PO Q4H PRN PRN Reason: Pain, Mild (1-3) Last Admin: 09/29/16 13:13 Dose: 650 mg Ascorbic Acid (Vitamin C 500 Mg Tab) 500 mg PO DAILY [facility] Last Admin: 09/29/16 09:39 Dose: 500 mg Baclofen (Lioresal) 20 mg PO TID [facility] Last Admin: 09/29/16 18:05 Dose: 20 mg Bisacodyl (Dulcolax) 5 mg PO DAILY PRN PRN Reason: Constipation Meropenem 1g/NS 100mL IVPB (Meropenem 1g/Ns 100ml Ivpb) 1 gm in 100 mls @ 100 mls/hr IVPB Q8 [facility] PRN Reason: Protocol Stop: 10/02/16 14:00 Last Admin: 09/30/16 05:39 Dose: 100 mls/hr Metoprolol Tartrate (Lopressor) 25 mg PO BID [facility] Last Admin: 09/29/16 18:05 Dose: 25 mg Multivitamins/Minerals (Therapeutic-M Tab) 1 tab PO DAILY [facility] Last Admin: 09/29/16 09:36 Dose: 1 tab Ondansetron HCl (Zofran Inj) 4 mg IVP Q6H PRN PRN Reason: Nausea/Vomiting Pantoprazole Sodium (Protonix Ec Tab) 40 mg PO ACB [facility] Last Admin: 09/30/16 06:50 Dose: 40 mg Pramipexole Dihydrochloride (Mirapex) 0.25 mg PO TID [facility] Last Admin: 09/29/16 18:06 Dose: 0.25 mg Silver Sulfadiazine (Silvadene 1% 20 Gm) 0 ea TOP BID [facility] Last Admin: 09/29/16 18:00 Dose: 1 applic Warfarin Sodium (Coumadin) 7.5 mg PO 1800 [facility] PRN Reason: Protocol Last Admin: 09/29/16 18:05 Dose: 7.5 mg Zinc Sulfate (Zinc Sulfate 220 Mg Cap) 220 mg PO DAILY [facility] Last Admin: 09/29/16 09:36 Dose: 220 mg - Labs Labs: 09/20/16 11:45 09/20/16 11:45 PT 15.6 Seconds (9.9-11.8) H 09/29/16 11:57 INR 1.44 (0.93-1.08) H 09/29/16 11:57 APTT 41.0 Seconds (23.7-30.8) H 09/09/16 12:00 Attending/Attestation - Attestation I have personally seen and examined this patient.: Yes I have fully participated in the care of the patient.: Yes I have reviewed all pertinent clinical information, including history, physical exam and plan: Yes Notes (Text): 09/29/16 51 year old male with past medical history of drug and alcohol abuse who presented with back pain. He was found to have epidural abscess T1-T5 and osteomyelitis. He underwent emergent laminectomy and the epidural abscess was drained. He is on iv antibiotics. ID is following. Repeat MRI spine from last week was reviewed. He has acute right lower extremity DVT. He is s/p IVC filter. He is currently on coumadin which was increased yesterday due to subtherapeutic INR. He was also found to have urinary retention and hematuria for which he was seen by urology. Continue with pain management. Continue with physical therapy. He is currently out of bed to chair. Miky Hou MD Hospitalist.
[2016-09-30] MEDS: Meropenem 1g/NS 100mL IVPB 1 GM/100 ML PIGGYBACK IVPB SCH ×3 (05:39→21:41)
[2016-09-30] MEDS: Pantoprazole 40 mg EC Tab PO SCH (06:50)
[2016-09-30 08:42] LABS: INR 1.47 (0.93-1.08); PROTHROMBIN TIME 15.9 Seconds (9.9-11.8)
[2016-09-30] MEDS: Silver Sulfadiazine 1% Cream (20 gm) TOP SCH ×2 (09:11→17:16)
[2016-09-30] MEDS: Multivitamin With Minerals Tab PO SCH (09:12)
--- NOTE | 2016-09-30 11:56 | CP.PCM.PN ---
Subjective - Date & Time of Evaluation Date of Evaluation: 09/30/16 Time of Evaluation: 09:00 - Subjective Subjective: UNCHANGED Objective - Vital Signs/Intake and Output Vital Signs (last 24 hours): Temp Pulse Resp BP Pulse Ox 97.7 F 65 20 102/59 L 97 09/30/16 07:56 09/30/16 09:09 09/30/16 07:56 09/30/16 09:09 09/30/16 07:56 Intake and Output: 09/30/16 09/30/16 06:59 18:59 Intake Total 1160 Output Total 1300 Balance -140 - Medications Medications: Current Medications Acetaminophen (Tylenol 325mg Tab) 650 mg PO Q4H PRN PRN Reason: Pain, Mild (1-3) Last Admin: 09/29/16 13:13 Dose: 650 mg Ascorbic Acid (Vitamin C 500 Mg Tab) 500 mg PO DAILY [facility] Last Admin: 09/30/16 09:12 Dose: 500 mg Baclofen (Lioresal) 20 mg PO TID [facility] Last Admin: 09/30/16 09:09 Dose: 20 mg Bisacodyl (Dulcolax) 5 mg PO DAILY PRN PRN Reason: Constipation Meropenem 1g/NS 100mL IVPB (Meropenem 1g/Ns 100ml Ivpb) 1 gm in 100 mls @ 100 mls/hr IVPB Q8 [facility] PRN Reason: Protocol Stop: 10/02/16 14:00 Last Admin: 09/30/16 05:39 Dose: 100 mls/hr Metoprolol Tartrate (Lopressor) 25 mg PO BID [facility] Last Admin: 09/30/16 09:09 Dose: 25 mg Multivitamins/Minerals (Therapeutic-M Tab) 1 tab PO DAILY [facility] Last Admin: 09/30/16 09:12 Dose: 1 tab Ondansetron HCl (Zofran Inj) 4 mg IVP Q6H PRN PRN Reason: Nausea/Vomiting Pantoprazole Sodium (Protonix Ec Tab) 40 mg PO ACB [facility] Last Admin: 09/30/16 06:50 Dose: 40 mg Pramipexole Dihydrochloride (Mirapex) 0.25 mg PO TID [facility] Last Admin: 09/30/16 09:10 Dose: 0.25 mg Silver Sulfadiazine (Silvadene 1% 20 Gm) 0 ea TOP BID [facility] Last Admin: 09/30/16 09:11 Dose: 1 applic Warfarin Sodium (Coumadin) 7.5 mg PO 1800 [facility] PRN Reason: Protocol Last Admin: 09/29/16 18:05 Dose: 7.5 mg Zinc Sulfate (Zinc Sulfate 220 Mg Cap) 220 mg PO DAILY [facility] Last Admin: 09/30/16 09:12 Dose: 220 mg - Labs Labs: 09/20/16 11:45 09/20/16 11:45 PT 15.9 Seconds (9.9-11.8) H 09/30/16 08:26 INR 1.47 (0.93-1.08) H 09/30/16 08:26 APTT 41.0 Seconds (23.7-30.8) H 09/09/16 12:00 - Constitutional Appears: Well - Head Exam Head Exam: ATRAUMATIC, NORMAL INSPECTION, NORMOCEPHALIC - Eye Exam Eye Exam: EOMI, Normal appearance, PERRL Pupil Exam: NORMAL ACCOMODATION, PERRL - ENT Exam ENT Exam: Mucous Membranes Moist, Normal Exam - Neck Exam Neck Exam: Full ROM, Normal Inspection. absent: Lymphadenopathy - Respiratory Exam Respiratory Exam: Clear to Ausculation Bilateral, NORMAL BREATHING PATTERN - Cardiovascular Exam Cardiovascular Exam: REGULAR RHYTHM, +S1, +S2. absent: Murmur - GI/Abdominal Exam GI & Abdominal Exam: Soft, Normal Bowel Sounds. absent: Tenderness - Rectal Exam Rectal Exam: NORMAL INSPECTION - Exam Exam: Circumcision, NORMAL INSPECTION External exam: NORMAL EXTERNAL EXAM Speculum exam: NORMAL SPECULUM EXAM Bimanual exam: NORMAL BIMANUAL EXAM - Extremities Exam Extremities Exam: Full ROM, Normal Capillary Refill, Normal Inspection. absent : Joint Swelling, Pedal Edema - Back Exam Back Exam: NORMAL INSPECTION - Neurological Exam Neurological Exam: Alert, Awake, CN II-XII Intact, Normal Gait, Oriented x3 - Psychiatric Exam Psychiatric exam: Normal Affect, Normal Mood - Skin Skin Exam: Dry, Intact, Normal Color, Warm Assessment and Plan (1) Epidural abscess Status: Acute - Assessment and Plan (Free Text) Plan: JUAN M
--- NOTE | 2016-09-30 14:46 | CP.PCM.PN ---
<STALIN PURDY - Last Filed: 09/30/16 17:33> Subjective - Date & Time of Evaluation Date of Evaluation: 09/30/16 Time of Evaluation: 10:20 - Subjective Subjective: Medicine Progress Note: Pt was seen and examined at bedside with medicine team. No complaints. Pt denied headache, dizziness, fever, chest pain, difficulty breathing, or abdominal pain. Objective - Vital Signs/Intake and Output Vital Signs (last 24 hours): Temp Pulse Resp BP Pulse Ox 97.7 F 65 20 102/59 L 97 09/30/16 07:56 09/30/16 09:09 09/30/16 07:56 09/30/16 09:09 09/30/16 07:56 Intake and Output: 09/30/16 09/30/16 06:59 18:59 Intake Total 1160 260 Output Total 1300 800 Balance -140 -540 - Medications Medications: Current Medications Acetaminophen (Tylenol 325mg Tab) 650 mg PO Q4H PRN PRN Reason: Pain, Mild (1-3) Last Admin: 09/29/16 13:13 Dose: 650 mg Ascorbic Acid (Vitamin C 500 Mg Tab) 500 mg PO DAILY [facility] Last Admin: 09/30/16 09:12 Dose: 500 mg Baclofen (Lioresal) 20 mg PO TID [facility] Last Admin: 09/30/16 13:23 Dose: 20 mg Bisacodyl (Dulcolax) 5 mg PO DAILY PRN PRN Reason: Constipation Meropenem 1g/NS 100mL IVPB (Meropenem 1g/Ns 100ml Ivpb) 1 gm in 100 mls @ 100 mls/hr IVPB Q8 [facility] PRN Reason: Protocol Stop: 10/02/16 14:00 Last Admin: 09/30/16 13:24 Dose: 100 mls/hr Metoprolol Tartrate (Lopressor) 25 mg PO BID [facility] Last Admin: 09/30/16 09:09 Dose: 25 mg Multivitamins/Minerals (Therapeutic-M Tab) 1 tab PO DAILY [facility] Last Admin: 09/30/16 09:12 Dose: 1 tab Ondansetron HCl (Zofran Inj) 4 mg IVP Q6H PRN PRN Reason: Nausea/Vomiting Pantoprazole Sodium (Protonix Ec Tab) 40 mg PO ACB [facility] Last Admin: 09/30/16 06:50 Dose: 40 mg Pramipexole Dihydrochloride (Mirapex) 0.25 mg PO TID [facility] Last Admin: 09/30/16 13:24 Dose: 0.25 mg Silver Sulfadiazine (Silvadene 1% 20 Gm) 0 ea TOP BID [facility] Last Admin: 09/30/16 09:11 Dose: 1 applic Warfarin Sodium (Coumadin) 7.5 mg PO 1800 [facility] PRN Reason: Protocol Last Admin: 09/29/16 18:05 Dose: 7.5 mg Zinc Sulfate (Zinc Sulfate 220 Mg Cap) 220 mg PO DAILY [facility] Last Admin: 09/30/16 09:12 Dose: 220 mg - Labs Labs: 09/20/16 11:45 09/20/16 11:45 PT 15.9 Seconds (9.9-11.8) H 09/30/16 08:26 INR 1.47 (0.93-1.08) H 09/30/16 08:26 APTT 41.0 Seconds (23.7-30.8) H 09/09/16 12:00 - Constitutional Appears: No Acute Distress - Head Exam Head Exam: ATRAUMATIC, NORMAL INSPECTION - Eye Exam Eye Exam: EOMI, Normal appearance - ENT Exam ENT Exam: Mucous Membranes Moist, Normal Exam - Neck Exam Neck Exam: Full ROM - Respiratory Exam Respiratory Exam: Clear to Ausculation Bilateral, NORMAL BREATHING PATTERN. absent: Rales, Rhonchi, Wheezes - Cardiovascular Exam Cardiovascular Exam: REGULAR RHYTHM, +S1, +S2. absent: Murmur - GI/Abdominal Exam GI & Abdominal Exam: absent: Distended, Tenderness - Neurological Exam Neurological Exam: Alert, Awake, Motor Sensory Deficit, Oriented x3 - Psychiatric Exam Psychiatric exam: Normal Affect, Normal Mood - Skin Skin Exam: Dry, Intact, Normal Color, Warm Additional comments: Incision site above sacral prominence with no erythema or discharge Assessment and Plan - Assessment and Plan (Free Text) Assessment: 51 year old male s/p T2-T4 laminectomy on 07/07/16 with paralysis of LE, US of LE showed R LE DVT s/p IVC filter and warfarin. Patient stable and awaiting final placement in outpatient setting. Repeat MRI shows improving osteo. ID is on board. 1.Epidural space abscess s/p lamenectomy T2-T4 - Trend ESR, CRP - MRI lumbar/thoracic spine resolving osteomyelitis, discitis and abscess has resolved - Cont meropenem - Pain controlled with tramadol 2. 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 R LE DVT s/p IVC filter placed - INR 1.47 today - Continue coumadin. will adjust based on INR - Will check INR and labs qod - Continue to assess for bleeding - IVC filter in place 4. Neurogenic bladder - Mackenzie in place 5. Several stage 2 pressure ulcer on lower back - improving - air mattress - Reposition q2H - continue multivitamin, zinc, vit. C PO - Wound care is on board 6. GI/DVT ppx Protonix/coumadin Patient seen and case discussed with attending physician, Dr. Hou. <Miky Hou - Last Filed: 10/01/16 06:45> Objective - Vital Signs/Intake and Output Vital Signs (last 24 hours): Temp Pulse Resp BP Pulse Ox 97.7 F 60 20 128/87 97 09/30/16 07:56 09/30/16 17:16 09/30/16 07:56 09/30/16 17:16 09/30/16 07:56 Intake and Output: 09/30/16 10/01/16 18:59 06:59 Intake Total 360 780 Output Total 800 1900 Balance -440 -1120 - Medications Medications: Current Medications Acetaminophen (Tylenol 325mg Tab) 650 mg PO Q4H PRN PRN Reason: Pain, Mild (1-3) Last Admin: 09/29/16 13:13 Dose: 650 mg Ascorbic Acid (Vitamin C 500 Mg Tab) 500 mg PO DAILY [facility] Last Admin: 09/30/16 09:12 Dose: 500 mg Baclofen (Lioresal) 20 mg PO TID [facility] Last Admin: 09/30/16 17:16 Dose: 20 mg Bisacodyl (Dulcolax) 5 mg PO DAILY PRN PRN Reason: Constipation Meropenem 1g/NS 100mL IVPB (Meropenem 1g/Ns 100ml Ivpb) 1 gm in 100 mls @ 100 mls/hr IVPB Q8 DONAL PRN Reason: Protocol Stop: 10/02/16 14:00 Last Admin: 10/01/16 05:59 Dose: 100 mls/hr Metoprolol Tartrate (Lopressor) 25 mg PO BID [facility] Last Admin: 09/30/16 17:16 Dose: 25 mg Multivitamins/Minerals (Therapeutic-M Tab) 1 tab PO DAILY [facility] Last Admin: 09/30/16 09:12 Dose: 1 tab Ondansetron HCl (Zofran Inj) 4 mg IVP Q6H PRN PRN Reason: Nausea/Vomiting Pantoprazole Sodium (Protonix Ec Tab) 40 mg PO ACB [facility] Last Admin: 09/30/16 06:50 Dose: 40 mg Pramipexole Dihydrochloride (Mirapex) 0.25 mg PO TID [facility] Last Admin: 09/30/16 17:16 Dose: 0.25 mg Silver Sulfadiazine (Silvadene 1% 20 Gm) 0 ea TOP BID [facility] Last Admin: 09/30/16 17:16 Dose: 1 applic Warfarin Sodium (Coumadin) 10 mg PO 1800 [facility] PRN Reason: Protocol Zinc Sulfate (Zinc Sulfate 220 Mg Cap) 220 mg PO DAILY [facility] Last Admin: 09/30/16 09:12 Dose: 220 mg - Labs Labs: 09/20/16 11:45 09/20/16 11:45 PT 15.9 Seconds (9.9-11.8) H 09/30/16 08:26 INR 1.47 (0.93-1.08) H 09/30/16 08:26 APTT 41.0 Seconds (23.7-30.8) H 09/09/16 12:00 Attending/Attestation - Attestation I have personally seen and examined this patient.: Yes I have fully participated in the care of the patient.: Yes I have reviewed all pertinent clinical information, including history, physical exam and plan: Yes Notes (Text): 09/30/16 51 year old male with past medical history of drug and alcohol abuse who presented with back pain. He was found to have epidural abscess T1-T5 and osteomyelitis. He underwent emergent laminectomy and the epidural abscess was drained. He is on iv antibiotics. ID is following. Repeat MRI spine from last week was reviewed. He has acute right lower extremity DVT. He is s/p IVC filter. He is currently on coumadin which we will increase due to subtherapeutic INR. He was also found to have urinary retention and hematuria for which he was seen by urology. Continue with pain management. Continue with physical therapy. Case was discussed with disability case manager and social worker delinquency prevention yesterday. Miky Hou MD Hospitalist.
[2016-10-01] MEDS: Meropenem 1g/NS 100mL IVPB 1 GM/100 ML PIGGYBACK IVPB SCH ×3 (05:59→21:52)
[2016-10-01 07:32] LABS: INR 1.82 (0.93-1.08); PROTHROMBIN TIME 19.7 Seconds (9.9-11.8)
[2016-10-01] MEDS: Pantoprazole 40 mg EC Tab PO SCH (08:33)
[2016-10-01] MEDS: Multivitamin With Minerals Tab PO SCH (09:43)
[2016-10-01] MEDS: Silver Sulfadiazine 1% Cream (20 gm) TOP SCH (09:46)
[2016-10-01] MEDS ORDERED: Acetaminophen 650mg/20.3ml solution UD PO ONE (11:19)
--- NOTE | 2016-10-01 17:26 | CP.PCM.PN ---
<STALIN PURDY - Last Filed: 10/01/16 17:20> Subjective - Date & Time of Evaluation Date of Evaluation: 10/01/16 Time of Evaluation: 11:20 - Subjective Subjective: Medicine Progress Note: Pt was seen and examined at bedside. No complaints on new medication. Pt denied dizziness, fever, headache, chest pain, difficulty breathing, hematuria or abdominal pain. Objective - Vital Signs/Intake and Output Vital Signs (last 24 hours): Temp Pulse Resp BP Pulse Ox 8 F L 59 L 20 107/64 99 10/01/16 16:25 10/01/16 16:25 10/01/16 16:25 10/01/16 16:25 10/01/16 16:25 Intake and Output: 10/01/16 10/01/16 06:59 18:59 Intake Total 780 250 Output Total 1900 Balance -1120 250 - Medications Medications: Current Medications Acetaminophen (Tylenol 325mg Tab) 650 mg PO Q4H PRN PRN Reason: Pain, Mild (1-3) Ascorbic Acid (Vitamin C 500 Mg Tab) 500 mg PO DAILY [facility] Last Admin: 10/01/16 09:44 Dose: 500 mg Baclofen (Lioresal) 20 mg PO TID [facility] Last Admin: 10/01/16 14:42 Dose: 20 mg Bisacodyl (Dulcolax) 5 mg PO DAILY PRN PRN Reason: Constipation Meropenem 1g/NS 100mL IVPB (Meropenem 1g/Ns 100ml Ivpb) 1 gm in 100 mls @ 100 mls/hr IVPB Q8 [facility] PRN Reason: Protocol Stop: 10/02/16 14:00 Last Admin: 10/01/16 14:42 Dose: 100 mls/hr Metoprolol Tartrate (Lopressor) 25 mg PO BID [facility] Last Admin: 10/01/16 09:44 Dose: 25 mg Multivitamins/Minerals (Therapeutic-M Tab) 1 tab PO DAILY [facility] Last Admin: 10/01/16 09:43 Dose: 1 tab Ondansetron HCl (Zofran Inj) 4 mg IVP Q6H PRN PRN Reason: Nausea/Vomiting Pantoprazole Sodium (Protonix Ec Tab) 40 mg PO ACB [facility] Last Admin: 10/01/16 08:33 Dose: 40 mg Pramipexole Dihydrochloride (Mirapex) 0.25 mg PO TID [facility] Last Admin: 10/01/16 14:42 Dose: 0.25 mg Silver Sulfadiazine (Silvadene 1% 20 Gm) 0 ea TOP BID [facility] Last Admin: 10/01/16 09:46 Dose: 1 applic Warfarin Sodium (Coumadin) 10 mg PO 1800 [facility] PRN Reason: Protocol Zinc Sulfate (Zinc Sulfate 220 Mg Cap) 220 mg PO DAILY [facility] Last Admin: 10/01/16 09:43 Dose: 220 mg - Labs Labs: 09/20/16 11:45 09/20/16 11:45 PT 19.7 Seconds (9.9-11.8) H 10/01/16 05:00 INR 1.82 (0.93-1.08) H 10/01/16 05:00 APTT 41.0 Seconds (23.7-30.8) H 09/09/16 12:00 - Constitutional Appears: No Acute Distress - Head Exam Head Exam: NORMAL INSPECTION, NORMOCEPHALIC - Eye Exam Eye Exam: EOMI, Normal appearance - ENT Exam ENT Exam: Mucous Membranes Moist, Normal Exam - Neck Exam Neck Exam: Full ROM - Respiratory Exam Respiratory Exam: Clear to Ausculation Bilateral, NORMAL BREATHING PATTERN. absent: Rales, Rhonchi, Wheezes - Cardiovascular Exam Cardiovascular Exam: REGULAR RHYTHM, +S1, +S2. absent: Murmur - GI/Abdominal Exam GI & Abdominal Exam: absent: Distended, Tenderness - Extremities Exam Extremities Exam: absent: Calf Tenderness, Pedal Edema - Neurological Exam Neurological Exam: Alert, Awake, Oriented x3 - Psychiatric Exam Psychiatric exam: Normal Affect, Normal Mood - Skin Skin Exam: Dry, Intact, Warm Additional comments: Incision site above sacral prominence with no erythema or discharge Assessment and Plan - Assessment and Plan (Free Text) Assessment: 51 year old male s/p T2-T4 laminectomy on 07/07/16 with paralysis of LE, US of LE showed R LE DVT s/p IVC filter and warfarin. Patient stable and awaiting final placement in outpatient setting. Repeat MRI shows improving osteo. ID is on board. 1.Epidural space abscess s/p lamenectomy T2-T4 - CRP at 5.05 - MRI lumbar/thoracic spine resolving osteomyelitis, discitis and abscess has resolved - Cont meropenem, per ID - Pain control maintained with tramadol 2. 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 R LE DVT s/p IVC filter placed - INR 1.82 today - Continue coumadin. will adjust based on INR - Will check INR and labs qod - gross hematuria present in haque drainage - Continue to assess for bleeding - IVC filter in place 4. Neurogenic bladder - Haque in place - no gross hematuria 5. Several stage 2 pressure ulcer on lower back - improving - air mattress - Reposition q2H - continue multivitamin, zinc, vit. C PO - Wound care is following 6. GI/DVT ppx Protonix/coumadin Patient seen and case discussed with attending physician, Dr. Hou. <Miky Hou - Last Filed: 10/01/16 17:51> Objective - Vital Signs/Intake and Output Vital Signs (last 24 hours): Temp Pulse Resp BP Pulse Ox 8 F L 53 L 20 107/64 99 10/01/16 16:25 10/01/16 17:26 10/01/16 16:25 10/01/16 17:26 10/01/16 16:25 Intake and Output: 10/01/16 10/01/16 06:59 18:59 Intake Total 780 250 Output Total 1900 Balance -1120 250 - Medications Medications: Current Medications Acetaminophen (Tylenol 325mg Tab) 650 mg PO Q4H PRN PRN Reason: Pain, Mild (1-3) Ascorbic Acid (Vitamin C 500 Mg Tab) 500 mg PO DAILY [facility] Last Admin: 10/01/16 09:44 Dose: 500 mg Baclofen (Lioresal) 20 mg PO TID [facility] Last Admin: 10/01/16 17:26 Dose: 20 mg Bisacodyl (Dulcolax) 5 mg PO DAILY PRN PRN Reason: Constipation Meropenem 1g/NS 100mL IVPB (Meropenem 1g/Ns 100ml Ivpb) 1 gm in 100 mls @ 100 mls/hr IVPB Q8 [facility] PRN Reason: Protocol Stop: 10/02/16 14:00 Last Admin: 10/01/16 14:42 Dose: 100 mls/hr Metoprolol Tartrate (Lopressor) 25 mg PO BID [facility] Last Admin: 10/01/16 17:26 Dose: 25 mg Multivitamins/Minerals (Therapeutic-M Tab) 1 tab PO DAILY [facility] Last Admin: 10/01/16 09:43 Dose: 1 tab Ondansetron HCl (Zofran Inj) 4 mg IVP Q6H PRN PRN Reason: Nausea/Vomiting Pantoprazole Sodium (Protonix Ec Tab) 40 mg PO ACB [facility] Last Admin: 10/01/16 08:33 Dose: 40 mg Pramipexole Dihydrochloride (Mirapex) 0.25 mg PO TID [facility] Last Admin: 10/01/16 17:25 Dose: 0.25 mg Silver Sulfadiazine (Silvadene 1% 20 Gm) 0 ea TOP BID [facility] Last Admin: 10/01/16 09:46 Dose: 1 applic Warfarin Sodium (Coumadin) 10 mg PO 1800 [facility] PRN Reason: Protocol Last Admin: 10/01/16 17:25 Dose: 10 mg Zinc Sulfate (Zinc Sulfate 220 Mg Cap) 220 mg PO DAILY [facility] Last Admin: 10/01/16 09:43 Dose: 220 mg - Labs Labs: 09/20/16 11:45 09/20/16 11:45 PT 19.7 Seconds (9.9-11.8) H 10/01/16 05:00 INR 1.82 (0.93-1.08) H 10/01/16 05:00 APTT 41.0 Seconds (23.7-30.8) H 09/09/16 12:00 Attending/Attestation - Attestation I have personally seen and examined this patient.: Yes I have fully participated in the care of the patient.: Yes I have reviewed all pertinent clinical information, including history, physical exam and plan: Yes Notes (Text): 10/01/16 17:49 51 year old male with past medical history of drug and alcohol abuse who presented with back pain. He was found to have epidural abscess T1-T5 and osteomyelitis. He underwent emergent laminectomy and the epidural abscess was drained. He is on iv antibiotics. ID is following. Repeat MRI spine from last week was reviewed. He has acute right lower extremity DVT. He is s/p IVC filter. He is currently on coumadin. He was also found to have urinary retention and hematuria. Haque is in place. Hematuria has cleared. Continue with pain management. Continue with physical therapy. Miky Hou MD Hospitalist.
--- NOTE | 2016-10-01 17:31 | CP.PCM.PN ---
Addendum entered and electronically signed by STALIN PURDY 10/01/16 17:49: PLEASE DISCARD THIS ENTIRE NOTE. IT WAS WRITTEN IN ERROR. Original Note: <STALIN PURDY - Last Filed: 10/01/16 17:32> Subjective - Date & Time of Evaluation Date of Evaluation: 10/01/16 Time of Evaluation: 09:40 - Subjective Subjective: Medicine Progress Note: Pt seen and examined at bedside. Pt currently on RIPE therapy but remains skeptical of TB diagnosis. Pt has no new complaints. Pt denied fever, cough, hemoptysis, chest pain, headache and abdominal pain. Objective - Vital Signs/Intake and Output Vital Signs (last 24 hours): Temp Pulse Resp BP Pulse Ox 8 F L 59 L 20 107/64 99 10/01/16 16:25 10/01/16 16:25 10/01/16 16:25 10/01/16 16:25 10/01/16 16:25 Intake and Output: 10/01/16 10/01/16 06:59 18:59 Intake Total 780 250 Output Total 1900 Balance -1120 250 - Medications Medications: Current Medications Acetaminophen (Tylenol 325mg Tab) 650 mg PO Q4H PRN PRN Reason: Pain, Mild (1-3) Ascorbic Acid (Vitamin C 500 Mg Tab) 500 mg PO DAILY [facility] Last Admin: 10/01/16 09:44 Dose: 500 mg Baclofen (Lioresal) 20 mg PO TID [facility] Last Admin: 10/01/16 14:42 Dose: 20 mg Bisacodyl (Dulcolax) 5 mg PO DAILY PRN PRN Reason: Constipation Meropenem 1g/NS 100mL IVPB (Meropenem 1g/Ns 100ml Ivpb) 1 gm in 100 mls @ 100 mls/hr IVPB Q8 [facility] PRN Reason: Protocol Stop: 10/02/16 14:00 Last Admin: 10/01/16 14:42 Dose: 100 mls/hr Metoprolol Tartrate (Lopressor) 25 mg PO BID [facility] Last Admin: 10/01/16 09:44 Dose: 25 mg Multivitamins/Minerals (Therapeutic-M Tab) 1 tab PO DAILY [facility] Last Admin: 10/01/16 09:43 Dose: 1 tab Ondansetron HCl (Zofran Inj) 4 mg IVP Q6H PRN PRN Reason: Nausea/Vomiting Pantoprazole Sodium (Protonix Ec Tab) 40 mg PO ACB [facility] Last Admin: 10/01/16 08:33 Dose: 40 mg Pramipexole Dihydrochloride (Mirapex) 0.25 mg PO TID [facility] Last Admin: 10/01/16 14:42 Dose: 0.25 mg Silver Sulfadiazine (Silvadene 1% 20 Gm) 0 ea TOP BID [facility] Last Admin: 10/01/16 09:46 Dose: 1 applic Warfarin Sodium (Coumadin) 10 mg PO 1800 [facility] PRN Reason: Protocol Zinc Sulfate (Zinc Sulfate 220 Mg Cap) 220 mg PO DAILY [facility] Last Admin: 10/01/16 09:43 Dose: 220 mg - Labs Labs: 09/20/16 11:45 09/20/16 11:45 PT 19.7 Seconds (9.9-11.8) H 10/01/16 05:00 INR 1.82 (0.93-1.08) H 10/01/16 05:00 APTT 41.0 Seconds (23.7-30.8) H 09/09/16 12:00 - Constitutional Appears: No Acute Distress - Head Exam Head Exam: NORMAL INSPECTION - Eye Exam Eye Exam: EOMI, Normal appearance - ENT Exam ENT Exam: Mucous Membranes Moist, Normal Exam - Neck Exam Neck Exam: Full ROM - Respiratory Exam Respiratory Exam: Clear to Ausculation Bilateral, NORMAL BREATHING PATTERN. absent: Rales, Rhonchi, Wheezes - Cardiovascular Exam Cardiovascular Exam: REGULAR RHYTHM, +S1, +S2. absent: Murmur - Extremities Exam Extremities Exam: absent: Calf Tenderness, Pedal Edema - Neurological Exam Neurological Exam: Alert, Awake, Oriented x3 - Psychiatric Exam Psychiatric exam: Normal Affect, Normal Mood - Skin Skin Exam: Dry, Intact, Normal Color, Warm Assessment and Plan - Assessment and Plan (Free Text) Assessment: 59 yo female with history of positive ppd and cavitary lesions on CT scan presents with hemoptysis found to have positive sputum AFB smear. 1. Cavitary lesion of lung -continue RIPE therapy -awaiting PCR -will order AFB stain after one week of RIPE therapy, per ID -awaiting final mycobacterial culture -Recommended all visitors wore proper isolation masks 2. Asthma -no complaints at this time -Solu-medrol discontinued -pulmonology started prednisone 10mg PO qd, will taper per note -continue albuterol PRN 3. Pneumonia -continue rocephin 4. HTN -Continue lisinopril and HCTZ 5. GI/DVT prophylaxis -protonix/scd's Patient seen and case discussed with attending physician, Dr. Hou. <Miky Hou - Last Filed: 10/02/16 07:01> Objective - Vital Signs/Intake and Output Vital Signs (last 24 hours): Temp Pulse Resp BP Pulse Ox 8 F L 53 L 20 107/64 99 10/01/16 16:25 10/01/16 17:26 10/01/16 16:25 10/01/16 17:26 10/01/16 16:25 Intake and Output: 10/02/16 10/02/16 06:59 18:59 Intake Total 780 Output Total 1000 Balance -220 - Medications Medications: Current Medications Acetaminophen (Tylenol 325mg Tab) 650 mg PO Q4H PRN PRN Reason: Pain, Mild (1-3) Ascorbic Acid (Vitamin C 500 Mg Tab) 500 mg PO DAILY [facility] Last Admin: 10/01/16 09:44 Dose: 500 mg Baclofen (Lioresal) 20 mg PO TID [facility] Last Admin: 10/01/16 17:26 Dose: 20 mg Bisacodyl (Dulcolax) 5 mg PO DAILY PRN PRN Reason: Constipation Meropenem 1g/NS 100mL IVPB (Meropenem 1g/Ns 100ml Ivpb) 1 gm in 100 mls @ 100 mls/hr IVPB Q8 [facility] PRN Reason: Protocol Stop: 10/02/16 14:00 Last Admin: 10/02/16 05:31 Dose: 100 mls/hr Metoprolol Tartrate (Lopressor) 25 mg PO BID [facility] Last Admin: 10/01/16 17:26 Dose: 25 mg Multivitamins/Minerals (Therapeutic-M Tab) 1 tab PO DAILY [facility] Last Admin: 10/01/16 09:43 Dose: 1 tab Ondansetron HCl (Zofran Inj) 4 mg IVP Q6H PRN PRN Reason: Nausea/Vomiting Pantoprazole Sodium (Protonix Ec Tab) 40 mg PO ACB [facility] Last Admin: 10/01/16 08:33 Dose: 40 mg Pramipexole Dihydrochloride (Mirapex) 0.25 mg PO TID [facility] Last Admin: 10/01/16 17:25 Dose: 0.25 mg Silver Sulfadiazine (Silvadene 1% 20 Gm) 0 ea TOP BID [facility] Last Admin: 10/01/16 09:46 Dose: 1 applic Warfarin Sodium (Coumadin) 10 mg PO 1800 [facility] PRN Reason: Protocol Last Admin: 10/01/16 17:25 Dose: 10 mg Zinc Sulfate (Zinc Sulfate 220 Mg Cap) 220 mg PO DAILY [facility] Last Admin: 10/01/16 09:43 Dose: 220 mg - Labs Labs: 09/20/16 11:45 09/20/16 11:45 PT 23.9 Seconds (9.9-11.8) H 10/02/16 06:00 INR 2.21 (0.93-1.08) H 10/02/16 06:00 APTT 41.0 Seconds (23.7-30.8) H 09/09/16 12:00 Attending/Attestation - Attestation Notes (Text): 10/02/16 07:01 disregard note as entered in error by internal grinder set up operator
[2016-10-02] MEDS: Meropenem 1g/NS 100mL IVPB 1 GM/100 ML PIGGYBACK IVPB SCH ×2 (05:31→14:55)
[2016-10-02 06:26] LABS: INR 2.21 (0.93-1.08); PROTHROMBIN TIME 23.9 Seconds (9.9-11.8)
[2016-10-02] MEDS: Pantoprazole 40 mg EC Tab PO SCH (08:14)
[2016-10-02] MEDS: Multivitamin With Minerals Tab PO SCH (09:06)
[2016-10-02] MEDS: Silver Sulfadiazine 1% Cream (20 gm) TOP SCH ×2 (09:56→17:55)
--- NOTE | 2016-10-02 11:53 | CP.PCM.PN ---
Subjective - Date & Time of Evaluation Date of Evaluation: 10/02/16 Time of Evaluation: 11:15 - Subjective Subjective: Comfortable, not in distress. Afebrile. Objective - Vital Signs/Intake and Output Vital Signs (last 24 hours): Temp Pulse Resp BP Pulse Ox 97.1 F L 61 18 120/69 98 10/01/16 07:30 10/01/16 07:30 10/01/16 07:30 10/01/16 07:30 10/01/16 07:30 Intake and Output: 10/01/16 10/01/16 06:59 18:59 Intake Total 780 250 Output Total 1900 Balance -1120 250 - Medications Medications: Current Medications Acetaminophen (Tylenol 325mg Tab) 650 mg PO Q4H PRN PRN Reason: Pain, Mild (1-3) Last Admin: 09/29/16 13:13 Dose: 650 mg Ascorbic Acid (Vitamin C 500 Mg Tab) 500 mg PO DAILY [facility] Last Admin: 09/30/16 09:12 Dose: 500 mg Baclofen (Lioresal) 20 mg PO TID [facility] Last Admin: 09/30/16 17:16 Dose: 20 mg Bisacodyl (Dulcolax) 5 mg PO DAILY PRN PRN Reason: Constipation Meropenem 1g/NS 100mL IVPB (Meropenem 1g/Ns 100ml Ivpb) 1 gm in 100 mls @ 100 mls/hr IVPB Q8 [facility] PRN Reason: Protocol Stop: 10/02/16 14:00 Last Admin: 10/01/16 05:59 Dose: 100 mls/hr Metoprolol Tartrate (Lopressor) 25 mg PO BID [facility] Last Admin: 09/30/16 17:16 Dose: 25 mg Multivitamins/Minerals (Therapeutic-M Tab) 1 tab PO DAILY [facility] Last Admin: 09/30/16 09:12 Dose: 1 tab Ondansetron HCl (Zofran Inj) 4 mg IVP Q6H PRN PRN Reason: Nausea/Vomiting Pantoprazole Sodium (Protonix Ec Tab) 40 mg PO ACB [facility] Last Admin: 10/01/16 08:33 Dose: 40 mg Pramipexole Dihydrochloride (Mirapex) 0.25 mg PO TID [facility] Last Admin: 09/30/16 17:16 Dose: 0.25 mg Silver Sulfadiazine (Silvadene 1% 20 Gm) 0 ea TOP BID [facility] Last Admin: 09/30/16 17:16 Dose: 1 applic Warfarin Sodium (Coumadin) 10 mg PO 1800 [facility] PRN Reason: Protocol Zinc Sulfate (Zinc Sulfate 220 Mg Cap) 220 mg PO DAILY [facility] Last Admin: 09/30/16 09:12 Dose: 220 mg - Labs Labs: 09/20/16 11:45 09/20/16 11:45 PT 19.7 Seconds (9.9-11.8) H 10/01/16 05:00 INR 1.82 (0.93-1.08) H 10/01/16 05:00 APTT 41.0 Seconds (23.7-30.8) H 09/09/16 12:00 - Constitutional Appears: Non-toxic, No Acute Distress - Head Exam Head Exam: NORMAL INSPECTION - Neck Exam Neck Exam: absent: Lymphadenopathy, Meningismus - Respiratory Exam Respiratory Exam: Decreased Breath Sounds - Cardiovascular Exam Cardiovascular Exam: +S1, +S2 - GI/Abdominal Exam GI & Abdominal Exam: Soft. 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 with associated cord compression and lower extremity paralysis and neurogenic bladder S/P neurosurgery for abscess drainage and laminectomy POD #82 Possible drug reaction to Rocephin Partial small bowel obstruction, clinically improved and resolved significant smoking history alcohol abuse obesity with BMI 40 Plan continue Merrem (now on more than11 weeks of therapy) because the CRP is still elevated (slowly trending down); will continue follow up weekly ESR, CRP; repeat MRI shows improvement in marrow edema in the T3-T4 area but has not resolved Will continue to follow clinically
--- NOTE | 2016-10-02 16:56 | CP.PCM.PN ---
<STALIN PRUDY - Last Filed: 10/02/16 18:10> Subjective - Date & Time of Evaluation Date of Evaluation: 10/02/16 Time of Evaluation: 10:30 - Subjective Subjective: Medicine Progress Note: Pt was seen and examined at bedside. Patient had no new complaints today to address. Pt denied dizziness, fever, chest pain, shortness of breath, hematuria , edema or abdominal pain. Objective - Vital Signs/Intake and Output Vital Signs (last 24 hours): Temp Pulse Resp BP Pulse Ox 97.5 F L 60 20 114/65 94 L 10/02/16 07:38 10/02/16 09:05 10/02/16 07:38 10/02/16 09:05 10/02/16 07:38 Intake and Output: 10/02/16 10/02/16 06:59 18:59 Intake Total 780 380 Output Total 1000 300 Balance -220 80 - Medications Medications: Current Medications Acetaminophen (Tylenol 325mg Tab) 650 mg PO Q4H PRN PRN Reason: Pain, Mild (1-3) Last Admin: 10/02/16 12:14 Dose: 650 mg Ascorbic Acid (Vitamin C 500 Mg Tab) 500 mg PO DAILY [facility] Last Admin: 10/02/16 09:04 Dose: 500 mg Baclofen (Lioresal) 20 mg PO TID [facility] Last Admin: 10/02/16 14:54 Dose: 20 mg Bisacodyl (Dulcolax) 5 mg PO DAILY PRN PRN Reason: Constipation Metoprolol Tartrate (Lopressor) 25 mg PO BID [facility] Last Admin: 10/02/16 09:05 Dose: 25 mg Multivitamins/Minerals (Therapeutic-M Tab) 1 tab PO DAILY [facility] Last Admin: 10/02/16 09:06 Dose: 1 tab Ondansetron HCl (Zofran Inj) 4 mg IVP Q6H PRN PRN Reason: Nausea/Vomiting Pantoprazole Sodium (Protonix Ec Tab) 40 mg PO ACB [facility] Last Admin: 10/02/16 08:14 Dose: 40 mg Pramipexole Dihydrochloride (Mirapex) 0.25 mg PO TID [facility] Last Admin: 10/02/16 14:56 Dose: 0.25 mg Silver Sulfadiazine (Silvadene 1% 20 Gm) 0 ea TOP BID [facility] Last Admin: 10/02/16 09:56 Dose: 1 applic Warfarin Sodium (Coumadin) 7.5 mg PO 1800 [facility] PRN Reason: Protocol Zinc Sulfate (Zinc Sulfate 220 Mg Cap) 220 mg PO DAILY [facility] Last Admin: 10/02/16 09:04 Dose: 220 mg - Labs Labs: 09/20/16 11:45 09/20/16 11:45 PT 23.9 Seconds (9.9-11.8) H 10/02/16 06:00 INR 2.21 (0.93-1.08) H 10/02/16 06:00 APTT 41.0 Seconds (23.7-30.8) H 09/09/16 12:00 - Constitutional Appears: No Acute Distress - Head Exam Head Exam: NORMAL INSPECTION, NORMOCEPHALIC - Eye Exam Eye Exam: EOMI, Normal appearance - ENT Exam ENT Exam: Mucous Membranes Moist, Normal Exam - Neck Exam Neck Exam: Full ROM - Respiratory Exam Respiratory Exam: Clear to Ausculation Bilateral. absent: Rales, Rhonchi, Wheezes - Cardiovascular Exam Cardiovascular Exam: REGULAR RHYTHM, RRR, +S1, +S2 - GI/Abdominal Exam GI & Abdominal Exam: Normal Bowel Sounds. absent: Distended, Tenderness - Extremities Exam Extremities Exam: absent: Calf Tenderness, Tenderness - Neurological Exam Neurological Exam: Alert, Awake, Oriented x3 - Psychiatric Exam Psychiatric exam: Normal Affect, Normal Mood - Skin Skin Exam: Dry, Intact, Normal Color, Warm Assessment and Plan - Assessment and Plan (Free Text) Assessment: Assessment: 51 year old male s/p T2-T4 laminectomy on 07/07/16 with paralysis of LE, US of LE showed R LE DVT s/p IVC filter and warfarin. Patient stable and awaiting final placement in outpatient setting. Repeat MRI shows improving osteo. ID is on board. 1.Epidural space abscess s/p lamenectomy T2-T4 - MRI lumbar/thoracic spine resolving osteomyelitis, discitis and abscess has resolved - continue Merrem because the CRP is still elevated, per ID - cont to trend weekly CRP and ESR - Pain control maintained with tramadol 2. 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 R LE DVT s/p IVC filter placed - INR up to 2.21 today (1.82 yesterday) - Decreased coumadin to 7.5mg (from 10mg) based on therapeutic INR - Will check INR and labs qod - Continue to assess for bleeding - IVC filter in place 4. Neurogenic bladder - Mackenzie in place - no gross hematuria 5. Several stage 2 pressure ulcer on lower back - improving - air mattress - Reposition q2H - continue multivitamin, zinc, vit. C PO - Wound care is following 6. GI/DVT ppx Protonix/coumadin Patient seen and case discussed with attending physician, Dr. Hou. <Miky Hou - Last Filed: 10/03/16 07:25> Objective - Vital Signs/Intake and Output Vital Signs (last 24 hours): Temp Pulse Resp BP Pulse Ox 97.9 F 56 L 20 100/62 95 10/02/16 17:40 10/02/16 17:53 10/02/16 17:40 10/02/16 17:53 10/02/16 17:40 Intake and Output: 10/03/16 10/03/16 06:59 18:59 Intake Total 960 Output Total 1175 Balance -215 - Medications Medications: Current Medications Acetaminophen (Tylenol 325mg Tab) 650 mg PO Q4H PRN PRN Reason: Pain, Mild (1-3) Last Admin: 10/02/16 12:14 Dose: 650 mg Ascorbic Acid (Vitamin C 500 Mg Tab) 500 mg PO DAILY [facility] Last Admin: 10/02/16 09:04 Dose: 500 mg Baclofen (Lioresal) 20 mg PO TID [facility] Last Admin: 10/02/16 17:52 Dose: 20 mg Bisacodyl (Dulcolax) 5 mg PO DAILY PRN PRN Reason: Constipation Metoprolol Tartrate (Lopressor) 25 mg PO BID [facility] Last Admin: 10/02/16 17:53 Dose: 25 mg Multivitamins/Minerals (Therapeutic-M Tab) 1 tab PO DAILY [facility] Last Admin: 10/02/16 09:06 Dose: 1 tab Ondansetron HCl (Zofran Inj) 4 mg IVP Q6H PRN PRN Reason: Nausea/Vomiting Pantoprazole Sodium (Protonix Ec Tab) 40 mg PO ACB [facility] Last Admin: 10/02/16 08:14 Dose: 40 mg Pramipexole Dihydrochloride (Mirapex) 0.25 mg PO TID [facility] Last Admin: 10/02/16 17:54 Dose: 0.25 mg Silver Sulfadiazine (Silvadene 1% 20 Gm) 0 ea TOP BID [facility] Last Admin: 10/02/16 17:55 Dose: 1 applic Warfarin Sodium (Coumadin) 7.5 mg PO 1800 [facility] PRN Reason: Protocol Last Admin: 10/02/16 17:53 Dose: 7.5 mg Zinc Sulfate (Zinc Sulfate 220 Mg Cap) 220 mg PO DAILY [facility] Last Admin: 10/02/16 09:04 Dose: 220 mg - Labs Labs: 09/20/16 11:45 09/20/16 11:45 PT 28.3 Seconds (9.9-11.8) H 10/03/16 06:10 INR 2.62 (0.93-1.08) H 10/03/16 06:10 APTT 41.0 Seconds (23.7-30.8) H 09/09/16 12:00 Attending/Attestation - Attestation I have personally seen and examined this patient.: Yes I have fully participated in the care of the patient.: Yes I have reviewed all pertinent clinical information, including history, physical exam and plan: Yes Notes (Text): 10/02/16 51 year old male with past medical history of drug and alcohol abuse who presented with back pain. He was found to have epidural abscess T1-T5 and osteomyelitis. He underwent emergent laminectomy and the epidural abscess was drained. He is on iv antibiotics. ID is following. Repeat MRI spine from last week was reviewed. He has acute right lower extremity DVT. He is s/p IVC filter. He is currently on coumadin which we are adjusting as per daily INRs. He was also found to have urinary retention and hematuria. Mackenzie is in place. Hematuria has cleared. Continue with physical therapy. Miky Hou MD Hospitalist.
[2016-10-03 07:09] LABS: INR 2.62 (0.93-1.08); PROTHROMBIN TIME 28.3 Seconds (9.9-11.8)
[2016-10-03] MEDS: Meropenem 1g/NS 100mL IVPB 1 GM/100 ML PIGGYBACK IVPB SCH ×3 (08:05→21:39)
[2016-10-03] MEDS: Pantoprazole 40 mg EC Tab PO SCH (08:07)
[2016-10-03] MEDS: Silver Sulfadiazine 1% Cream (20 gm) TOP SCH ×2 (09:20→17:54)
[2016-10-03] MEDS: Multivitamin With Minerals Tab PO SCH (09:46)
--- NOTE | 2016-10-03 11:15 | CP.PCM.PN ---
<STALIN PURDY - Last Filed: 10/03/16 14:18> Subjective - Date & Time of Evaluation Date of Evaluation: 10/03/16 Time of Evaluation: 08:15 - Subjective Subjective: Medicine Progress Note: Pt was seen and assessed at bedside. Pt had no new complaints this morning. Pt denied fever, headache, chest pain, dyspnea, or abdominal pain. Objective - Vital Signs/Intake and Output Vital Signs (last 24 hours): Temp Pulse Resp BP Pulse Ox 97.7 F 61 22 114/75 94 L 10/03/16 07:33 10/03/16 09:46 10/03/16 07:33 10/03/16 09:46 10/03/16 07:33 Intake and Output: 10/03/16 10/03/16 06:59 18:59 Intake Total 960 Output Total 1175 Balance -215 - Medications Medications: Current Medications Acetaminophen (Tylenol 325mg Tab) 650 mg PO Q4H PRN PRN Reason: Pain, Mild (1-3) Last Admin: 10/02/16 12:14 Dose: 650 mg Ascorbic Acid (Vitamin C 500 Mg Tab) 500 mg PO DAILY [facility] Last Admin: 10/03/16 09:46 Dose: 500 mg Baclofen (Lioresal) 20 mg PO TID [facility] Last Admin: 10/03/16 09:46 Dose: 20 mg Bisacodyl (Dulcolax) 5 mg PO DAILY PRN PRN Reason: Constipation Meropenem 1g/NS 100mL IVPB (Meropenem 1g/Ns 100ml Ivpb) 1 gm in 100 mls @ 100 mls/hr IVPB Q8 DONAL PRN Reason: Protocol Stop: 10/31/16 07:43 Last Admin: 10/03/16 08:05 Dose: 100 mls/hr Metoprolol Tartrate (Lopressor) 25 mg PO BID [facility] Last Admin: 10/03/16 09:46 Dose: 25 mg Multivitamins/Minerals (Therapeutic-M Tab) 1 tab PO DAILY [facility] Last Admin: 10/03/16 09:46 Dose: 1 tab Ondansetron HCl (Zofran Inj) 4 mg IVP Q6H PRN PRN Reason: Nausea/Vomiting Pantoprazole Sodium (Protonix Ec Tab) 40 mg PO ACB [facility] Last Admin: 10/03/16 08:07 Dose: 40 mg Pramipexole Dihydrochloride (Mirapex) 0.25 mg PO TID [facility] Last Admin: 10/03/16 09:46 Dose: 0.25 mg Silver Sulfadiazine (Silvadene 1% 20 Gm) 0 ea TOP BID [facility] Last Admin: 10/02/16 17:55 Dose: 1 applic Warfarin Sodium (Coumadin) 5 mg PO 1800 [facility] PRN Reason: Protocol Zinc Sulfate (Zinc Sulfate 220 Mg Cap) 220 mg PO DAILY [facility] Last Admin: 10/03/16 09:45 Dose: 220 mg - Labs Labs: 09/20/16 11:45 09/20/16 11:45 PT 28.3 Seconds (9.9-11.8) H 10/03/16 06:10 INR 2.62 (0.93-1.08) H 10/03/16 06:10 APTT 41.0 Seconds (23.7-30.8) H 09/09/16 12:00 - Constitutional Appears: No Acute Distress - Head Exam Head Exam: NORMAL INSPECTION, NORMOCEPHALIC - Eye Exam Eye Exam: EOMI, Normal appearance - ENT Exam ENT Exam: Mucous Membranes Moist, Normal Exam - Neck Exam Neck Exam: Full ROM - Respiratory Exam Respiratory Exam: Clear to Ausculation Bilateral, NORMAL BREATHING PATTERN. absent: Rales, Rhonchi, Wheezes - Cardiovascular Exam Cardiovascular Exam: REGULAR RHYTHM, +S1, +S2. absent: Murmur - GI/Abdominal Exam GI & Abdominal Exam: absent: Distended, Tenderness - Neurological Exam Neurological Exam: Alert, Awake - Psychiatric Exam Psychiatric exam: Normal Affect, Normal Mood - Skin Skin Exam: Dry, Intact, Normal Color, Warm Additional comments: No erythema or discharge surrounding incision site. Assessment and Plan - Assessment and Plan (Free Text) Assessment: 51 year old male s/p T2-T4 laminectomy on 07/07/16 with paralysis of LE, US of LE showed R LE DVT s/p IVC filter and warfarin. Patient stable and awaiting final placement in outpatient setting. Repeat MRI shows improving osteo. ID is on board. 1.Epidural space abscess s/p lamenectomy T2-T4 - MRI lumbar/thoracic spine resolving osteomyelitis, discitis and abscess has resolved - continue Merrem, per ID - cont to trend weekly CRP and ESR - Pain control maintained with tramadol 2. 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 R LE DVT s/p IVC filter placed - INR up to 2.62 today (2.21 yesterday) - Decreased coumadin to 5mg (from 7.5mg) based on therapeutic INR - Will check INR and labs qod - Continue to assess for bleeding - IVC filter in place 4. Neurogenic bladder - Mackenzie in place - no gross hematuria 5. Several stage 2 pressure ulcer on lower back - improving - air mattress - Reposition q2H - continue multivitamin, zinc, vit. C PO - Wound care is following 6. GI/DVT ppx Protonix/coumadin Patient seen and case discussed with attending physician, Dr. Hou. <Miky Hou - Last Filed: 10/03/16 16:06> Objective - Vital Signs/Intake and Output Vital Signs (last 24 hours): Temp Pulse Resp BP Pulse Ox 97.7 F 61 22 114/75 94 L 10/03/16 07:33 10/03/16 09:46 10/03/16 07:33 10/03/16 09:46 10/03/16 07:33 Intake and Output: 10/03/16 10/03/16 06:59 18:59 Intake Total 960 Output Total 1175 500 Balance -215 -500 - Medications Medications: Current Medications Acetaminophen (Tylenol 325mg Tab) 650 mg PO Q4H PRN PRN Reason: Pain, Mild (1-3) Last Admin: 10/03/16 14:18 Dose: 650 mg Ascorbic Acid (Vitamin C 500 Mg Tab) 500 mg PO DAILY [facility] Last Admin: 10/03/16 09:46 Dose: 500 mg Baclofen (Lioresal) 20 mg PO TID [facility] Last Admin: 10/03/16 14:17 Dose: 20 mg Bisacodyl (Dulcolax) 5 mg PO DAILY PRN PRN Reason: Constipation Meropenem 1g/NS 100mL IVPB (Meropenem 1g/Ns 100ml Ivpb) 1 gm in 100 mls @ 100 mls/hr IVPB Q8 DONAL PRN Reason: Protocol Stop: 10/31/16 07:43 Last Admin: 10/03/16 14:12 Dose: 100 mls/hr Metoprolol Tartrate (Lopressor) 25 mg PO BID [facility] Last Admin: 10/03/16 09:46 Dose: 25 mg Multivitamins/Minerals (Therapeutic-M Tab) 1 tab PO DAILY [facility] Last Admin: 10/03/16 09:46 Dose: 1 tab Ondansetron HCl (Zofran Inj) 4 mg IVP Q6H PRN PRN Reason: Nausea/Vomiting Pantoprazole Sodium (Protonix Ec Tab) 40 mg PO ACB [facility] Last Admin: 10/03/16 08:07 Dose: 40 mg Pramipexole Dihydrochloride (Mirapex) 0.25 mg PO TID [facility] Last Admin: 10/03/16 14:17 Dose: 0.25 mg Silver Sulfadiazine (Silvadene 1% 20 Gm) 0 ea TOP BID [facility] Last Admin: 10/03/16 09:20 Dose: 1 applic Warfarin Sodium (Coumadin) 5 mg PO 1800 [facility] PRN Reason: Protocol Zinc Sulfate (Zinc Sulfate 220 Mg Cap) 220 mg PO DAILY [facility] Last Admin: 10/03/16 09:45 Dose: 220 mg - Labs Labs: 09/20/16 11:45 09/20/16 11:45 PT 28.3 Seconds (9.9-11.8) H 10/03/16 06:10 INR 2.62 (0.93-1.08) H 10/03/16 06:10 APTT 41.0 Seconds (23.7-30.8) H 09/09/16 12:00 Attending/Attestation - Attestation I have personally seen and examined this patient.: Yes I have fully participated in the care of the patient.: Yes I have reviewed all pertinent clinical information, including history, physical exam and plan: Yes Notes (Text): 10/03/16 16:03 51 year old male with past medical history of drug and alcohol abuse who presented with back pain. He was found to have epidural abscess T1-T5 and osteomyelitis. He underwent emergent laminectomy and the epidural abscess was drained. He is on iv antibiotics. ID is following. Repeat MRI spine from last week was reviewed. He has acute right lower extremity DVT. He is s/p IVC filter. He is on coumadin. INR today is 2.62. He was also found to have urinary retention and hematuria. Mackenzie is in place. Hematuria has cleared. Continue with physical therapy. Miky Hou MD Hospitalist.
--- NOTE | 2016-10-03 11:25 | CP.PCM.PN ---
Subjective - Date & Time of Evaluation Date of Evaluation: 10/03/16 Time of Evaluation: 10:20 - Subjective Subjective: Comfortable in bed, afebrile. Objective - Vital Signs/Intake and Output Vital Signs (last 24 hours): Temp Pulse Resp BP Pulse Ox 97.7 F 61 22 114/75 94 L 10/03/16 07:33 10/03/16 07:33 10/03/16 07:33 10/03/16 07:33 10/03/16 07:33 Intake and Output: 10/03/16 10/03/16 06:59 18:59 Intake Total 960 Output Total 1175 Balance -215 - Medications Medications: Current Medications Acetaminophen (Tylenol 325mg Tab) 650 mg PO Q4H PRN PRN Reason: Pain, Mild (1-3) Last Admin: 10/02/16 12:14 Dose: 650 mg Ascorbic Acid (Vitamin C 500 Mg Tab) 500 mg PO DAILY [facility] [place] Last Admin: 10/02/16 09:04 Dose: 500 mg Baclofen (Lioresal) 20 mg PO TID [facility] [place] Last Admin: 10/02/16 17:52 Dose: 20 mg Bisacodyl (Dulcolax) 5 mg PO DAILY PRN PRN Reason: Constipation Meropenem 1g/NS 100mL IVPB (Meropenem 1g/Ns 100ml Ivpb) 1 gm in 100 mls @ 100 mls/hr IVPB Q8 DONAL PRN Reason: Protocol Stop: 10/31/16 07:43 Last Admin: 10/03/16 08:05 Dose: 100 mls/hr Metoprolol Tartrate (Lopressor) 25 mg PO BID [facility] [place] Last Admin: 10/02/16 17:53 Dose: 25 mg Multivitamins/Minerals (Therapeutic-M Tab) 1 tab PO DAILY [facility] [place] Last Admin: 10/02/16 09:06 Dose: 1 tab Ondansetron HCl (Zofran Inj) 4 mg IVP Q6H PRN PRN Reason: Nausea/Vomiting Pantoprazole Sodium (Protonix Ec Tab) 40 mg PO ACB [facility] [place] Last Admin: 10/03/16 08:07 Dose: 40 mg Pramipexole Dihydrochloride (Mirapex) 0.25 mg PO TID [facility] [place] Last Admin: 10/02/16 17:54 Dose: 0.25 mg Silver Sulfadiazine (Silvadene 1% 20 Gm) 0 ea TOP BID [facility] [place] Last Admin: 10/02/16 17:55 Dose: 1 applic Warfarin Sodium (Coumadin) 7.5 mg PO 1800 [facility] [place] PRN Reason: Protocol Last Admin: 10/02/16 17:53 Dose: 7.5 mg Zinc Sulfate (Zinc Sulfate 220 Mg Cap) 220 mg PO DAILY [facility] [place] Last Admin: 10/02/16 09:04 Dose: 220 mg - Labs Labs: 09/20/16 11:45 09/20/16 11:45 PT 28.3 Seconds (9.9-11.8) H 10/03/16 06:10 INR 2.62 (0.93-1.08) H 10/03/16 06:10 APTT 41.0 Seconds (23.7-30.8) H 09/09/16 12:00 - Constitutional Appears: Non-toxic, No Acute Distress - Head Exam Head Exam: NORMAL INSPECTION - ENT Exam ENT Exam: Mucous Membranes Moist - Neck Exam Neck Exam: absent: Lymphadenopathy, Meningismus - Respiratory Exam Respiratory Exam: Decreased Breath Sounds - Cardiovascular Exam Cardiovascular Exam: +S1, +S2 - GI/Abdominal Exam GI & Abdominal Exam: Soft. 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 with associated cord compression and lower extremity paralysis and neurogenic bladder S/P neurosurgery for abscess drainage and laminectomy POD #83 Possible drug reaction to Rocephin Partial small bowel obstruction, clinically improved and resolved significant smoking history alcohol abuse obesity with BMI 40 Plan continue Merrem (now on more than 11 weeks of therapy) because the CRP is still elevated (slowly trending down); will continue follow up weekly ESR, CRP; repeat MRI shows improvement in marrow edema in the T3-T4 area but has not resolved Will continue to monitor clinically
[2016-10-04] MEDS: Meropenem 1g/NS 100mL IVPB 1 GM/100 ML PIGGYBACK IVPB SCH ×3 (06:49→21:36)
[2016-10-04] MEDS: Pantoprazole 40 mg EC Tab PO SCH (07:53)
[2016-10-04] MEDS: Multivitamin With Minerals Tab PO SCH (09:21)
[2016-10-04] MEDS: Silver Sulfadiazine 1% Cream (20 gm) TOP SCH ×2 (09:22→17:20)
[2016-10-04 10:35] LABS: INR 3.13 (0.93-1.08); PROTHROMBIN TIME 33.8 Seconds (9.9-11.8)
--- NOTE | 2016-10-04 11:43 | CP.PCM.PN ---
Subjective - Date & Time of Evaluation Date of Evaluation: 10/04/16 Time of Evaluation: 11:10 - Subjective Subjective: Comfortable in bed, not in distress, afebrile, still unable to move his lower extremities. No diarrhea. Objective - Vital Signs/Intake and Output Vital Signs (last 24 hours): Temp Pulse Resp BP Pulse Ox 97.7 F 51 L 18 140/85 96 10/04/16 08:00 10/04/16 08:00 10/04/16 08:00 10/04/16 08:00 10/04/16 08:00 Intake and Output: 10/04/16 10/04/16 06:59 18:59 Intake Total 720 Output Total 1225 Balance -505 - Medications Medications: Current Medications Acetaminophen (Tylenol 325mg Tab) 650 mg PO Q4H PRN PRN Reason: Pain, Mild (1-3) Last Admin: 10/03/16 14:18 Dose: 650 mg Ascorbic Acid (Vitamin C 500 Mg Tab) 500 mg PO DAILY [facility] Last Admin: 10/04/16 09:21 Dose: 500 mg Baclofen (Lioresal) 20 mg PO TID [facility] Last Admin: 10/04/16 09:21 Dose: 20 mg Bisacodyl (Dulcolax) 5 mg PO DAILY PRN PRN Reason: Constipation Meropenem 1g/NS 100mL IVPB (Meropenem 1g/Ns 100ml Ivpb) 1 gm in 100 mls @ 100 mls/hr IVPB Q8 DONAL PRN Reason: Protocol Stop: 10/31/16 07:43 Last Admin: 10/04/16 06:49 Dose: 100 mls/hr Metoprolol Tartrate (Lopressor) 25 mg PO BID [facility] Last Admin: 10/04/16 09:21 Dose: 25 mg Multivitamins/Minerals (Therapeutic-M Tab) 1 tab PO DAILY [facility] Last Admin: 10/04/16 09:21 Dose: 1 tab Ondansetron HCl (Zofran Inj) 4 mg IVP Q6H PRN PRN Reason: Nausea/Vomiting Pantoprazole Sodium (Protonix Ec Tab) 40 mg PO ACB [facility] Last Admin: 10/04/16 07:53 Dose: 40 mg Pramipexole Dihydrochloride (Mirapex) 0.25 mg PO TID [facility] Last Admin: 07/08/17 09:21 Dose: 0.25 mg Silver Sulfadiazine (Silvadene 1% 20 Gm) 0 ea TOP BID [facility] Last Admin: 10/04/16 09:22 Dose: 1 applic Warfarin Sodium (Coumadin) 5 mg PO 1800 [facility] PRN Reason: Protocol Last Admin: 10/03/16 17:53 Dose: 5 mg Zinc Sulfate (Zinc Sulfate 220 Mg Cap) 220 mg PO DAILY [facility] Last Admin: 10/04/16 09:21 Dose: 220 mg - Labs Labs: 09/20/16 11:45 09/20/16 11:45 PT 28.3 Seconds (9.9-11.8) H 10/03/16 06:10 INR 2.62 (0.93-1.08) H 10/03/16 06:10 APTT 41.0 Seconds (23.7-30.8) H 09/09/16 12:00 - Constitutional Appears: Non-toxic, No Acute Distress - Head Exam Head Exam: NORMAL INSPECTION - Neck Exam Neck Exam: absent: Meningismus - Respiratory Exam Respiratory Exam: Decreased Breath Sounds - Cardiovascular Exam Cardiovascular Exam: +S1, +S2 - GI/Abdominal Exam GI & Abdominal Exam: Soft. 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 with associated cord compression and lower extremity paralysis and neurogenic bladder S/P neurosurgery for abscess drainage and laminectomy POD #84 Possible drug reaction to Rocephin Partial small bowel obstruction, clinically improved and resolved significant smoking history alcohol abuse obesity with BMI 40 Plan continue Merrem (now on 12 weeks of therapy) because the CRP is still elevated (slowly trending down); will continue follow up weekly ESR, CRP; repeat MRI shows improvement in marrow edema in the T3-T4 area but has not resolved - if the CRP continues to trend downwards on next measurement, would consider changing to PO antibiotics Will continue to monitor clinically
--- NOTE | 2016-10-04 12:20 | CP.PCM.PN ---
<Zachary Tee - Last Filed: 10/04/16 13:27> Subjective - Date & Time of Evaluation Date of Evaluation: 10/04/16 Time of Evaluation: 09:45 - Subjective Subjective: Patient seen and examined at bedside. Patient resting comfortably in bed. Offers no new complaints at this time. Denies fever, chills, chest pain, SOB, abdominal pain, N/V. Objective - Vital Signs/Intake and Output Vital Signs (last 24 hours): Temp Pulse Resp BP Pulse Ox 97.7 F 51 L 18 140/85 96 10/04/16 08:00 10/04/16 08:00 10/04/16 08:00 10/04/16 08:00 10/04/16 08:00 Intake and Output: 10/04/16 10/04/16 06:59 18:59 Intake Total 720 Output Total 1225 Balance -505 - Medications Medications: Current Medications Acetaminophen (Tylenol 325mg Tab) 650 mg PO Q4H PRN PRN Reason: Pain, Mild (1-3) Last Admin: 10/03/16 14:18 Dose: 650 mg Ascorbic Acid (Vitamin C 500 Mg Tab) 500 mg PO DAILY [facility] Last Admin: 10/04/16 09:21 Dose: 500 mg Baclofen (Lioresal) 20 mg PO TID [facility] Last Admin: 10/04/16 09:21 Dose: 20 mg Bisacodyl (Dulcolax) 5 mg PO DAILY PRN PRN Reason: Constipation Meropenem 1g/NS 100mL IVPB (Meropenem 1g/Ns 100ml Ivpb) 1 gm in 100 mls @ 100 mls/hr IVPB Q8 DONAL PRN Reason: Protocol Stop: 10/31/16 07:43 Last Admin: 10/04/16 06:49 Dose: 100 mls/hr Metoprolol Tartrate (Lopressor) 25 mg PO BID [facility] Last Admin: 10/04/16 09:21 Dose: 25 mg Multivitamins/Minerals (Therapeutic-M Tab) 1 tab PO DAILY [facility] Last Admin: 10/04/16 09:21 Dose: 1 tab Ondansetron HCl (Zofran Inj) 4 mg IVP Q6H PRN PRN Reason: Nausea/Vomiting Pantoprazole Sodium (Protonix Ec Tab) 40 mg PO ACB [facility] Last Admin: 10/04/16 07:53 Dose: 40 mg Pramipexole Dihydrochloride (Mirapex) 0.25 mg PO TID [facility] Last Admin: 10/04/16 09:21 Dose: 0.25 mg Silver Sulfadiazine (Silvadene 1% 20 Gm) 0 ea TOP BID [facility] Last Admin: 10/04/16 09:22 Dose: 1 applic Warfarin Sodium (Coumadin) 5 mg PO 1800 [facility] PRN Reason: Protocol Last Admin: 10/03/16 17:53 Dose: 5 mg Zinc Sulfate (Zinc Sulfate 220 Mg Cap) 220 mg PO DAILY [facility] Last Admin: 10/04/16 09:21 Dose: 220 mg - Labs Labs: 09/20/16 11:45 09/20/16 11:45 PT 33.8 Seconds (9.9-11.8) H* 10/04/16 10:22 INR 3.13 (0.93-1.08) H 10/04/16 10:22 APTT 41.0 Seconds (23.7-30.8) H 09/09/16 12:00 - Additional Findings Additional findings: - Constitutional Appears: No Acute Distress - Head Exam Head Exam: NORMAL INSPECTION, NORMOCEPHALIC - Eye Exam Eye Exam: EOMI, Normal appearance - ENT Exam ENT Exam: Mucous Membranes Moist, Normal Exam - Neck Exam Neck Exam: Full ROM - Respiratory Exam Respiratory Exam: Clear to Ausculation Bilateral, NORMAL BREATHING PATTERN. absent: Rales, Rhonchi, Wheezes - Cardiovascular Exam Cardiovascular Exam: REGULAR RHYTHM, +S1, +S2. absent: Murmur - GI/Abdominal Exam GI & Abdominal Exam: absent: Distended, Tenderness - Neurological Exam Neurological Exam: Alert, Awake, responds to verbal stimuli, follows commands, moves extremities spontaneously - Psychiatric Exam Psychiatric exam: Normal Affect, Normal Mood - Skin Skin Exam: Dry, Intact, Normal Color, Warm Additional comments: No erythema or discharge surrounding incision site. Assessment and Plan - Assessment and Plan (Free Text) Assessment: Patient is a 51 year old male with past medical history of drug and alcohol abuse who is admitted and treated for an epidural abscess T1-T5 and osteomyelitis. Plan: 1.Epidural space abscess s/p lamenectomy T2-T4 - MRI lumbar/thoracic spine resolving osteomyelitis, discitis and abscess has resolved - continue Merrem, per ID - cont to trend weekly CRP and ESR - Pain control maintained with tramadol 2. 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 R LE DVT s/p IVC filter placed - INR up to 3.13 today - hold warfarin tonight INR is supratherapeutic - Will check INR and labs qod - Continue to assess for bleeding - IVC filter in place 4. Neurogenic bladder - Mackenzie in place - no gross hematuria 5. Several stage 2 pressure ulcer on lower back - improving - air mattress - Reposition q2H - continue multivitamin, zinc, vit. C PO - Wound care is following 6. GI/DVT ppx Protonix/coumadin Patient seen and case discussed with attending physician, Dr. Hou. <Miky Hou - Last Filed: 10/04/16 14:08> Objective - Vital Signs/Intake and Output Vital Signs (last 24 hours): Temp Pulse Resp BP Pulse Ox 97.7 F 51 L 18 140/85 96 10/04/16 08:00 10/04/16 08:00 10/04/16 08:00 10/04/16 08:00 10/04/16 08:00 Intake and Output: 10/04/16 10/04/16 06:59 18:59 Intake Total 720 Output Total 1225 Balance -505 - Medications Medications: Current Medications Acetaminophen (Tylenol 325mg Tab) 650 mg PO Q4H PRN PRN Reason: Pain, Mild (1-3) Last Admin: 10/03/16 14:18 Dose: 650 mg Ascorbic Acid (Vitamin C 500 Mg Tab) 500 mg PO DAILY [facility] Last Admin: 10/04/16 09:21 Dose: 500 mg Baclofen (Lioresal) 20 mg PO TID [facility] Last Admin: 10/04/16 12:59 Dose: 20 mg Bisacodyl (Dulcolax) 5 mg PO DAILY PRN PRN Reason: Constipation Meropenem 1g/NS 100mL IVPB (Meropenem 1g/Ns 100ml Ivpb) 1 gm in 100 mls @ 100 mls/hr IVPB Q8 [facility] PRN Reason: Protocol Stop: 10/31/16 07:43 Last Admin: 10/04/16 12:59 Dose: 100 mls/hr Metoprolol Tartrate (Lopressor) 25 mg PO BID [facility] Last Admin: 10/04/16 09:21 Dose: 25 mg Multivitamins/Minerals (Therapeutic-M Tab) 1 tab PO DAILY [facility] Last Admin: 10/04/16 09:21 Dose: 1 tab Ondansetron HCl (Zofran Inj) 4 mg IVP Q6H PRN PRN Reason: Nausea/Vomiting Pantoprazole Sodium (Protonix Ec Tab) 40 mg PO ACB [facility] Last Admin: 10/04/16 07:53 Dose: 40 mg Pramipexole Dihydrochloride (Mirapex) 0.25 mg PO TID [facility] Last Admin: 10/04/16 13:00 Dose: 0.25 mg Silver Sulfadiazine (Silvadene 1% 20 Gm) 0 ea TOP BID [facility] Last Admin: 10/04/16 09:22 Dose: 1 applic Warfarin Sodium (Coumadin) 5 mg PO 1800 [facility] PRN Reason: Protocol Last Admin: 10/03/16 17:53 Dose: 5 mg Zinc Sulfate (Zinc Sulfate 220 Mg Cap) 220 mg PO DAILY [facility] Last Admin: 10/04/16 09:21 Dose: 220 mg - Labs Labs: 09/20/16 11:45 09/20/16 11:45 PT 33.8 Seconds (9.9-11.8) H* 10/04/16 10:22 INR 3.13 (0.93-1.08) H 10/04/16 10:22 APTT 41.0 Seconds (23.7-30.8) H 09/09/16 12:00 Attending/Attestation - Attestation I have personally seen and examined this patient.: Yes I have fully participated in the care of the patient.: Yes I have reviewed all pertinent clinical information, including history, physical exam and plan: Yes Notes (Text): 10/04/16 14:07 51 year old male with past medical history of drug and alcohol abuse who presented with back pain. He was found to have epidural abscess T1-T5 and osteomyelitis. He underwent emergent laminectomy and the epidural abscess was drained. He is on iv antibiotics. ID is following. Repeat MRI spine from last week was reviewed. He has acute right lower extremity DVT. He is s/p IVC filter. INR today is supratherapeutic at 3.13 so his coumadin will be held tonight. Repeat INR in AM. He was also found to have urinary retention and hematuria. Mackenzie is in place. Hematuria has cleared. Continue with physical therapy. Miky Hou MD Hospitalist.
[2016-10-05] MEDS: Meropenem 1g/NS 100mL IVPB 1 GM/100 ML PIGGYBACK IVPB SCH ×3 (05:04→22:29)
[2016-10-05 06:07] LABS: HEMOGLOBIN 12.7 gm/dL (14.0-18.0); MEAN CELL VOLUME 85.7 fL (80.0-105.0); MEAN CORPUSCULAR HEMOGLOBIN 28.4 pg (25.0-35.0); MEAN CORPUSCULAR HGB CONC 33.2 g/dl (31.0-37.0); MEAN PLATELET VOLUME 12.9 fl (7.0-11.0); RBC 4.47 10^6/uL (3.5-6.1); WHITE BLOOD COUNT 5.9 10^3/ul (4.5-11.0)
[2016-10-05 06:15] LABS: BLOOD UREA NITROGEN 17 mg/dL (7-21); CALCIUM 9.6 mg/dL (8.4-10.5); GFR AFRICAN-AMERICAN > 60; GFR NON-AFRICAN AMERICAN > 60; INR 2.77 (0.93-1.08); PROTHROMBIN TIME 29.9 Seconds (9.9-11.8)
[2016-10-05] MEDS: Pantoprazole 40 mg EC Tab PO SCH (08:20)
[2016-10-05] MEDS: Multivitamin With Minerals Tab PO SCH (09:23)
[2016-10-05] MEDS: Silver Sulfadiazine 1% Cream (20 gm) TOP SCH ×2 (09:27→17:33)
--- NOTE | 2016-10-05 12:39 | CP.PCM.PN ---
<Zachary Tee - Last Filed: 10/05/16 12:34> Subjective - Date & Time of Evaluation Date of Evaluation: 10/05/16 Time of Evaluation: 10:30 - Subjective Subjective: Patient seen and examined at bedside. Patient resting comfortably in bed. Offers no new complaints at this time. Reddish hue in haque bag contents noted. Denies fever, chills, chest pain, SOB, abdominal pain, N/V, and urinary symptoms. Objective - Vital Signs/Intake and Output Vital Signs (last 24 hours): Temp Pulse Resp BP Pulse Ox 97.6 F 72 20 134/84 98 10/05/16 08:08 10/05/16 09:24 10/05/16 08:08 10/05/16 09:24 10/05/16 08:08 Intake and Output: 10/05/16 10/05/16 06:59 18:59 Intake Total 480 Output Total 1200 Balance -720 - Medications Medications: Current Medications Acetaminophen (Tylenol 325mg Tab) 650 mg PO Q4H PRN PRN Reason: Pain, Mild (1-3) Last Admin: 10/03/16 14:18 Dose: 650 mg Ascorbic Acid (Vitamin C 500 Mg Tab) 500 mg PO DAILY [facility] Last Admin: 10/05/16 09:24 Dose: 500 mg Baclofen (Lioresal) 20 mg PO TID [facility] Last Admin: 10/05/16 09:24 Dose: 20 mg Bisacodyl (Dulcolax) 5 mg PO DAILY PRN PRN Reason: Constipation Meropenem 1g/NS 100mL IVPB (Meropenem 1g/Ns 100ml Ivpb) 1 gm in 100 mls @ 100 mls/hr IVPB Q8 DONAL PRN Reason: Protocol Stop: 10/31/16 07:43 Last Admin: 10/05/16 05:04 Dose: 100 mls/hr Metoprolol Tartrate (Lopressor) 25 mg PO BID [facility] Last Admin: 10/05/16 09:24 Dose: 25 mg Multivitamins/Minerals (Therapeutic-M Tab) 1 tab PO DAILY [facility] Last Admin: 10/05/16 09:23 Dose: 1 tab Ondansetron HCl (Zofran Inj) 4 mg IVP Q6H PRN PRN Reason: Nausea/Vomiting Pantoprazole Sodium (Protonix Ec Tab) 40 mg PO ACB [facility] Last Admin: 10/05/16 08:20 Dose: 40 mg Pramipexole Dihydrochloride (Mirapex) 0.25 mg PO TID [facility] Last Admin: 10/05/16 09:23 Dose: 0.25 mg Silver Sulfadiazine (Silvadene 1% 20 Gm) 0 ea TOP BID [facility] Last Admin: 10/05/16 09:27 Dose: 1 applic Warfarin Sodium (Coumadin) 5 mg PO 1800 [facility] PRN Reason: Protocol Last Admin: 10/03/16 17:53 Dose: 5 mg Zinc Sulfate (Zinc Sulfate 220 Mg Cap) 220 mg PO DAILY [facility] Last Admin: 10/05/16 09:23 Dose: 220 mg - Labs Labs: 10/05/16 05:05 10/05/16 05:05 PT 29.9 Seconds (9.9-11.8) H 10/05/16 05:05 INR 2.77 (0.93-1.08) H 10/05/16 05:05 APTT 41.0 Seconds (23.7-30.8) H 09/09/16 12:00 - Additional Findings Additional findings: - Constitutional Appears: No Acute Distress - Head Exam Head Exam: NORMAL INSPECTION, NORMOCEPHALIC - Eye Exam Eye Exam: EOMI, Normal appearance - ENT Exam ENT Exam: Mucous Membranes Moist, Normal Exam - Neck Exam Neck Exam: Full ROM - Respiratory Exam Respiratory Exam: Clear to Ausculation Bilateral, NORMAL BREATHING PATTERN. absent: Rales, Rhonchi, Wheezes - Cardiovascular Exam Cardiovascular Exam: REGULAR RHYTHM, +S1, +S2. absent: Murmur - GI/Abdominal Exam GI & Abdominal Exam: absent: Distended, Tenderness - Neurological Exam Neurological Exam: Alert, Awake, responds to verbal stimuli, follows commands, moves extremities spontaneously - Psychiatric Exam Psychiatric exam: Normal Affect, Normal Mood - Skin Skin Exam: Dry, Intact, Normal Color, Warm Additional comments: No erythema or discharge surrounding incision site Assessment and Plan - Assessment and Plan (Free Text) Assessment: Patient is a 51 year old male with past medical history of drug and alcohol abuse who is admitted and treated for an epidural abscess T1-T5 and osteomyelitis. Plan: 1.Epidural space abscess s/p lamenectomy T2-T4 - MRI lumbar/thoracic spine resolving osteomyelitis, discitis and abscess has resolved - continue Merrem, per ID - continue to trend weekly CRP and ESR - Pain control maintained with tramadol 2. 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 R LE DVT s/p IVC filter placed - INR 2.77 - hold warfarin tonight due to hematuria - Will check INR and labs qod - Continue to assess for bleeding - IVC filter in place 4. Neurogenic bladder - Haque in place 5. Several stage 2 pressure ulcer on lower back - improving - air mattress - Reposition q2H - continue multivitamin, zinc, vit. C PO - Wound care is following 6. GI/DVT ppx - Protonix 7. Hematuria - reach out to urology- appreciate input - hold coumadin today - check PT-INR tmr Patient seen and case discussed with attending physician, Dr. Hou. <Miky Hou - Last Filed: 10/05/16 13:48> Objective - Vital Signs/Intake and Output Vital Signs (last 24 hours): Temp Pulse Resp BP Pulse Ox 97.6 F 72 20 134/84 98 10/05/16 08:08 10/05/16 09:24 10/05/16 08:08 10/05/16 09:24 10/05/16 08:08 Intake and Output: 10/05/16 10/05/16 06:59 18:59 Intake Total 480 Output Total 1200 Balance -720 - Medications Medications: Current Medications Acetaminophen (Tylenol 325mg Tab) 650 mg PO Q4H PRN PRN Reason: Pain, Mild (1-3) Last Admin: 10/03/16 14:18 Dose: 650 mg Ascorbic Acid (Vitamin C 500 Mg Tab) 500 mg PO DAILY [facility] Last Admin: 10/05/16 09:24 Dose: 500 mg Baclofen (Lioresal) 20 mg PO TID [facility] Last Admin: 10/05/16 09:24 Dose: 20 mg Bisacodyl (Dulcolax) 5 mg PO DAILY PRN PRN Reason: Constipation Meropenem 1g/NS 100mL IVPB (Meropenem 1g/Ns 100ml Ivpb) 1 gm in 100 mls @ 100 mls/hr IVPB Q8 DONAL PRN Reason: Protocol Stop: 10/31/16 07:43 Last Admin: 10/05/16 05:04 Dose: 100 mls/hr Metoprolol Tartrate (Lopressor) 25 mg PO BID [facility] Last Admin: 10/05/16 09:24 Dose: 25 mg Multivitamins/Minerals (Therapeutic-M Tab) 1 tab PO DAILY [facility] Last Admin: 10/05/16 09:23 Dose: 1 tab Ondansetron HCl (Zofran Inj) 4 mg IVP Q6H PRN PRN Reason: Nausea/Vomiting Pantoprazole Sodium (Protonix Ec Tab) 40 mg PO ACB [facility] Last Admin: 10/05/16 08:20 Dose: 40 mg Pramipexole Dihydrochloride (Mirapex) 0.25 mg PO TID [facility] Last Admin: 10/05/16 09:23 Dose: 0.25 mg Silver Sulfadiazine (Silvadene 1% 20 Gm) 0 ea TOP BID [facility] Last Admin: 10/05/16 09:27 Dose: 1 applic Warfarin Sodium (Coumadin) 5 mg PO 1800 [facility] PRN Reason: Protocol Last Admin: 10/03/16 17:53 Dose: 5 mg Zinc Sulfate (Zinc Sulfate 220 Mg Cap) 220 mg PO DAILY [facility] Last Admin: 10/05/16 09:23 Dose: 220 mg - Labs Labs: 10/05/16 05:05 10/05/16 05:05 PT 29.9 Seconds (9.9-11.8) H 10/05/16 05:05 INR 2.77 (0.93-1.08) H 10/05/16 05:05 APTT 41.0 Seconds (23.7-30.8) H 09/09/16 12:00 Attending/Attestation - Attestation I have personally seen and examined this patient.: Yes I have fully participated in the care of the patient.: Yes I have reviewed all pertinent clinical information, including history, physical exam and plan: Yes Notes (Text): 10/05/16 13:45 51 year old male with past medical history of drug and alcohol abuse who presented with back pain. He was found to have epidural abscess T1-T5 and osteomyelitis. He underwent emergent laminectomy and the epidural abscess was drained. He is on iv antibiotics. ID is following. Repeat MRI spine from last week was reviewed. He has acute right lower extremity DVT. He is s/p IVC filter. INR was supratherapeutic yesterday and his coumadin was held. Today it is 2.77. However he was noted to have hematuria again in his haque bag. Will continue to hold his coumadin for today and requested urology follow up. Continue with physical therapy. Miky Hou MD Hospitalist.
[2016-10-06] MEDS: Meropenem 1g/NS 100mL IVPB 1 GM/100 ML PIGGYBACK IVPB SCH ×3 (06:43→21:38)
[2016-10-06 07:01] LABS: MEAN CELL VOLUME 86.1 fL (80.0-105.0); MEAN CORPUSCULAR HEMOGLOBIN 28.2 pg (25.0-35.0); MEAN CORPUSCULAR HGB CONC 32.7 g/dl (31.0-37.0); MEAN PLATELET VOLUME 12.6 fl (7.0-11.0); RBC 4.61 10^6/uL (3.5-6.1); WHITE BLOOD COUNT 6.8 10^3/ul (4.5-11.0)
[2016-10-06] MEDS: Pantoprazole 40 mg EC Tab PO SCH (08:30)
[2016-10-06 09:12] LABS: INR 2.06 (0.93-1.08); PROTHROMBIN TIME 22.3 Seconds (9.9-11.8)
[2016-10-06] MEDS: Multivitamin With Minerals Tab PO SCH (10:23)
[2016-10-06] MEDS: Silver Sulfadiazine 1% Cream (20 gm) TOP SCH ×2 (10:24→15:05)
--- NOTE | 2016-10-06 16:08 | CP.PCM.PN ---
<STALIN PURDY - Last Filed: 10/06/16 16:04> Subjective - Date & Time of Evaluation Date of Evaluation: 10/06/16 Time of Evaluation: 10:55 - Subjective Subjective: Medicine Progress Note: Pt was seen and assessed at bedside. Pt had no new complaints this morning. Pt denied fever, headache, chest pain, dyspnea, nausea/vomitting, painful urination or abdominal pain. Objective - Vital Signs/Intake and Output Vital Signs (last 24 hours): Temp Pulse Resp BP Pulse Ox 97.8 F 54 L 18 121/79 100 10/06/16 15:45 10/06/16 15:45 10/06/16 15:45 10/06/16 15:45 10/06/16 15:45 - Medications Medications: Current Medications Acetaminophen (Tylenol 325mg Tab) 650 mg PO Q4H PRN PRN Reason: Pain, Mild (1-3) Last Admin: 10/03/16 14:18 Dose: 650 mg Ascorbic Acid (Vitamin C 500 Mg Tab) 500 mg PO DAILY [facility] Last Admin: 10/06/16 10:22 Dose: 500 mg Baclofen (Lioresal) 20 mg PO TID [facility] Last Admin: 10/06/16 13:49 Dose: 20 mg Meropenem 1g/NS 100mL IVPB (Meropenem 1g/Ns 100ml Ivpb) 1 gm in 100 mls @ 100 mls/hr IVPB Q8 DONAL PRN Reason: Protocol Stop: 10/31/16 07:43 Last Admin: 10/06/16 13:49 Dose: 100 mls/hr Metoprolol Tartrate (Lopressor) 25 mg PO BID [facility] Last Admin: 10/06/16 10:22 Dose: 25 mg Multivitamins/Minerals (Therapeutic-M Tab) 1 tab PO DAILY [facility] Last Admin: 10/06/16 10:23 Dose: 1 tab Pantoprazole Sodium (Protonix Ec Tab) 40 mg PO ACB [facility] Last Admin: 10/06/16 08:30 Dose: 40 mg Pramipexole Dihydrochloride (Mirapex) 0.25 mg PO TID [facility] Last Admin: 10/06/16 13:49 Dose: 0.25 mg Silver Sulfadiazine (Silvadene 1% 20 Gm) 0 ea TOP BID [facility] Last Admin: 10/06/16 10:24 Dose: 1 applic Warfarin Sodium (Coumadin) 5 mg PO 1800 [facility] PRN Reason: Protocol Last Admin: 10/03/16 17:53 Dose: 5 mg Zinc Sulfate (Zinc Sulfate 220 Mg Cap) 220 mg PO DAILY [facility] Last Admin: 10/06/16 10:25 Dose: 220 mg - Labs Labs: 10/06/16 06:30 10/05/16 05:05 PT 22.3 Seconds (9.9-11.8) H 10/06/16 08:30 INR 2.06 (0.93-1.08) H 10/06/16 08:30 APTT 41.0 Seconds (23.7-30.8) H 09/09/16 12:00 - Constitutional Appears: No Acute Distress - Head Exam Head Exam: NORMAL INSPECTION, NORMOCEPHALIC - Eye Exam Eye Exam: EOMI, Normal appearance - ENT Exam ENT Exam: Mucous Membranes Moist, Normal Exam - Neck Exam Neck Exam: Full ROM. absent: Lymphadenopathy - Respiratory Exam Respiratory Exam: Clear to Ausculation Bilateral, NORMAL BREATHING PATTERN. absent: Rales, Rhonchi, Wheezes - Cardiovascular Exam Cardiovascular Exam: REGULAR RHYTHM, +S1, +S2. absent: Murmur - GI/Abdominal Exam GI & Abdominal Exam: absent: Distended, Tenderness - Extremities Exam Extremities Exam: Joint Swelling. absent: Calf Tenderness, Pedal Edema - Neurological Exam Neurological Exam: Alert, Awake, Oriented x3 - Psychiatric Exam Psychiatric exam: Normal Affect, Normal Mood - Skin Skin Exam: Dry, Intact, Normal Color, Warm Additional comments: Sacral wound without erythema or discharge Assessment and Plan - Assessment and Plan (Free Text) Assessment: Patient is a 51 year old male with past medical history of drug and alcohol abuse who is admitted and treated for an epidural abscess T1-T5 and osteomyelitis. 1.Epidural space abscess s/p lamenectomy T2-T4 - MRI lumbar/thoracic spine resolving osteomyelitis, discitis and abscess has resolved - continue Merrem, per ID - continue to trend weekly CRP and ESR; if it trends down, will consider PO antibiotics - Pain control maintained with tramadol 2. 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 R LE DVT s/p IVC filter placed - INR 2.06 - hold warfarin tonight due to hematuria - Will check INR and labs qod - Continue to assess for bleeding - IVC filter in place 4. Neurogenic bladder - Haque in place 5. Several stage 2 pressure ulcer on lower back - improving - air mattress - Reposition q2H - continue multivitamin, zinc, vit. C PO - Wound care is following 6. GI/DVT ppx - Protonix 7. Hematuria - reach out to urology- appreciate input - hold coumadin today - will await urology recommendations for continuation of coumadin - check PT-INR tmr Patient seen and case discussed with attending physician, Dr. Hou. <Miky Hou - Last Filed: 10/06/16 17:05> Objective - Vital Signs/Intake and Output Vital Signs (last 24 hours): Temp Pulse Resp BP Pulse Ox 97.8 F 54 L 18 121/79 100 10/06/16 15:45 10/06/16 15:45 10/06/16 15:45 10/06/16 15:45 10/06/16 15:45 - Medications Medications: Current Medications Acetaminophen (Tylenol 325mg Tab) 650 mg PO Q4H PRN PRN Reason: Pain, Mild (1-3) Last Admin: 10/03/16 14:18 Dose: 650 mg Ascorbic Acid (Vitamin C 500 Mg Tab) 500 mg PO DAILY [facility] Last Admin: 10/06/16 10:22 Dose: 500 mg Baclofen (Lioresal) 20 mg PO TID [facility] Last Admin: 10/06/16 13:49 Dose: 20 mg Meropenem 1g/NS 100mL IVPB (Meropenem 1g/Ns 100ml Ivpb) 1 gm in 100 mls @ 100 mls/hr IVPB Q8 [facility] PRN Reason: Protocol Stop: 10/31/16 07:43 Last Admin: 10/06/16 13:49 Dose: 100 mls/hr Metoprolol Tartrate (Lopressor) 25 mg PO BID [facility] Last Admin: 10/06/16 10:22 Dose: 25 mg Multivitamins/Minerals (Therapeutic-M Tab) 1 tab PO DAILY [facility] Last Admin: 10/06/16 10:23 Dose: 1 tab Pantoprazole Sodium (Protonix Ec Tab) 40 mg PO ACB [facility] Last Admin: 10/06/16 08:30 Dose: 40 mg Pramipexole Dihydrochloride (Mirapex) 0.25 mg PO TID [facility] Last Admin: 10/06/16 13:49 Dose: 0.25 mg Silver Sulfadiazine (Silvadene 1% 20 Gm) 0 ea TOP BID [facility] Last Admin: 10/06/16 10:24 Dose: 1 applic Warfarin Sodium (Coumadin) 5 mg PO 1800 [facility] PRN Reason: Protocol Last Admin: 10/03/16 17:53 Dose: 5 mg Zinc Sulfate (Zinc Sulfate 220 Mg Cap) 220 mg PO DAILY [facility] Last Admin: 10/06/16 10:25 Dose: 220 mg - Labs Labs: 10/06/16 06:30 10/05/16 05:05 PT 22.3 Seconds (9.9-11.8) H 10/06/16 08:30 INR 2.06 (0.93-1.08) H 10/06/16 08:30 APTT 41.0 Seconds (23.7-30.8) H 09/09/16 12:00 Attending/Attestation - Attestation I have personally seen and examined this patient.: Yes I have fully participated in the care of the patient.: Yes I have reviewed all pertinent clinical information, including history, physical exam and plan: Yes Notes (Text): 10/06/16 16:15 51 year old male with past medical history of drug and alcohol abuse who presented with back pain. He was found to have epidural abscess T1-T5 and osteomyelitis. He underwent emergent laminectomy and the epidural abscess was drained. He is on iv antibiotics. ID is following. Repeat MRI spine from last week was reviewed. He has acute right lower extremity DVT. He is s/p IVC filter. He was on coumadin however he was noted to have hematuria again in his haque bag. This is clearing up with irrigation. Coumadin is on hold. Urology follow up was requested. Will resume coumadin once okay with urology. INR today is 2.06. I did speak with Dr. Nixon today with patient updates from [employer] office as requested by patient and psychiatric social worker. Continue with physical therapy. Miky Hou MD Hospitalist.
[2016-10-06 23:04] LABS: URINE BILIRUBIN NEGATIVE (NEGATIVE); URINE BLOOD LARGE (NEGATIVE); URINE GLUCOSE (UA) NEGATIVE (NEGATIVE); URINE LEUKOCYTE ESTERASE NEGATIVE Leu/uL (NEGATIVE); URINE NITRATE NEGATIVE (NEGATIVE); URINE PROTEIN 100 mg/dL (<30 mg/dL); URINE UROBILINOGEN 0.2 E.U./dL (<1 E.U./dL)
[2016-10-06 23:09] LABS: URINE APPEARANCE TURBID (CLEAR); URINE COLOR YELLOW (YELLOW)
--- NOTE | 2016-10-06 23:17 | PCM.URO ---
Urology Progress Note - General General: No Complaints, Tolerating, Tolerating Diet, NPO - Subjective Hematuria: Yes (previous cysto negative) - Objective Lab Studies: Reviewed Lab Results Last 24 Hours: Laboratory Results - last 24 hr 10/06/16 10/06/16 10/06/16 06:30 08:30 08:50 WBC 6.8 RBC 4.61 Hgb 13.0 L Hct 39.7 L MCV 86.1 MCH 28.2 MCHC 32.7 RDW 14.0 Plt Count 157 MPV 12.6 H PT 22.3 H INR 2.06 H Urine Color Yellow Urine Appearance Turbid Urine pH 6.0 Ur Specific [place] >= 1.030 Urine Protein 100 H Urine Glucose (UA) Negative Urine Ketones Negative Urine Blood Large H Urine Nitrate Negative Urine Bilirubin Negative Urine Urobilinogen 0.2 Ur Leukocyte Esterase Negative Intake & Output: Intake & Output 10/06/16 10/06/16 10/07/16 06:59 18:59 06:59 Intake Total 100 540 Output Total 1000 Balance 100 -460 Intake: IV 100 Left Upper arm 100 Oral 540 Output: Urine 1000 Urethral (Haque) 1000 Other: # Voids Urethral (Haque) 1 # Bowel Movements 0 1 Vital Signs: Vital Signs - 24 hr 10/06/16 10/06/16 10/06/16 08:07 10:22 15:45 Temperature 97.8 F 97.8 F Pulse Rate 62 62 54 L Respiratory 16 18 Rate Blood Pressure 124/71 124/71 121/79 O2 Sat by Pulse 96 100 Oximetry 10/06/16 10/06/16 17:05 17:09 Temperature Pulse Rate 59 L 59 L Respiratory Rate Blood Pressure 121/79 121/79 O2 Sat by Pulse Oximetry - Physical Exam Bowel Sounds: Normal - Plan Discontinue Urinary Catheter: No (haque to sd)
[2016-10-06 23:49] LABS: URINE BACTERIA FEW (NEG); URINE EPITHELIAL CELLS 0 - 2 /hpf (0-5); URINE RBC TNTC /hpf (0-2)
[2016-10-07] MEDS: Meropenem 1g/NS 100mL IVPB 1 GM/100 ML PIGGYBACK IVPB SCH ×3 (05:22→22:37)
[2016-10-07] MEDS: Silver Sulfadiazine 1% Cream (20 gm) TOP SCH ×2 (09:15→17:08)
[2016-10-07] MEDS: Pantoprazole 40 mg EC Tab PO SCH (09:15)
[2016-10-07] MEDS: Multivitamin With Minerals Tab PO SCH (09:16)
--- NOTE | 2016-10-07 13:38 | CP.PCM.PN ---
<STALIN PURDY - Last Filed: 10/07/16 13:41> Subjective - Date & Time of Evaluation Date of Evaluation: 10/07/16 Time of Evaluation: 09:15 - Subjective Subjective: Medicine Progress Note: Pt seen and assessed at bedside. Pt has no complaints at this time. Pt denies fever, headache, chest pain, shortness of breath, N/V, abdominal pain or burning with urination. Objective - Vital Signs/Intake and Output Vital Signs (last 24 hours): Temp Pulse Resp BP Pulse Ox 97.9 F 50 L 20 115/81 99 10/07/16 07:30 10/07/16 09:16 10/07/16 07:30 10/07/16 09:16 10/07/16 07:30 Intake and Output: 10/07/16 10/07/16 06:59 18:59 Intake Total 720 Output Total 1400 Balance -680 - Medications Medications: Current Medications Acetaminophen (Tylenol 325mg Tab) 650 mg PO Q4H PRN PRN Reason: Pain, Mild (1-3) Last Admin: 10/06/16 21:36 Dose: 650 mg Ascorbic Acid (Vitamin C 500 Mg Tab) 500 mg PO DAILY [facility] Last Admin: 10/07/16 09:16 Dose: 500 mg Baclofen (Lioresal) 20 mg PO TID [facility] Last Admin: 10/07/16 09:16 Dose: 20 mg Meropenem 1g/NS 100mL IVPB (Meropenem 1g/Ns 100ml Ivpb) 1 gm in 100 mls @ 100 mls/hr IVPB Q8 [facility] PRN Reason: Protocol Stop: 10/31/16 07:43 Last Admin: 10/07/16 05:22 Dose: 100 mls/hr Metoprolol Tartrate (Lopressor) 25 mg PO BID [facility] Last Admin: 10/07/16 09:16 Dose: 25 mg Multivitamins/Minerals (Therapeutic-M Tab) 1 tab PO DAILY [facility] Last Admin: 10/07/16 09:16 Dose: 1 tab Pantoprazole Sodium (Protonix Ec Tab) 40 mg PO ACB [facility] Last Admin: 10/07/16 09:15 Dose: 40 mg Pramipexole Dihydrochloride (Mirapex) 0.25 mg PO TID [facility] Last Admin: 10/07/16 09:16 Dose: 0.25 mg Silver Sulfadiazine (Silvadene 1% 20 Gm) 0 ea TOP BID [facility] Last Admin: 10/07/16 09:15 Dose: 1 applic Warfarin Sodium (Coumadin) 5 mg PO 1800 [facility] PRN Reason: Protocol Last Admin: 10/03/16 17:53 Dose: 5 mg Zinc Sulfate (Zinc Sulfate 220 Mg Cap) 220 mg PO DAILY [facility] Last Admin: 10/07/16 09:16 Dose: 220 mg - Labs Labs: 10/06/16 06:30 10/05/16 05:05 PT 22.3 Seconds (9.9-11.8) H 10/06/16 08:30 INR 2.06 (0.93-1.08) H 10/06/16 08:30 APTT 41.0 Seconds (23.7-30.8) H 09/09/16 12:00 - Constitutional Appears: No Acute Distress - Head Exam Head Exam: NORMAL INSPECTION, NORMOCEPHALIC - Eye Exam Eye Exam: EOMI, Normal appearance - ENT Exam ENT Exam: Mucous Membranes Moist, Normal Exam - Neck Exam Neck Exam: Full ROM - Respiratory Exam Respiratory Exam: Clear to Ausculation Bilateral, NORMAL BREATHING PATTERN. absent: Rales, Rhonchi, Wheezes - Cardiovascular Exam Cardiovascular Exam: REGULAR RHYTHM, +S1, +S2. absent: Murmur - GI/Abdominal Exam GI & Abdominal Exam: Normal Bowel Sounds. absent: Distended, Tenderness - Extremities Exam Extremities Exam: absent: Calf Tenderness, Pedal Edema - Neurological Exam Neurological Exam: Alert, Awake, Oriented x3 - Psychiatric Exam Psychiatric exam: Normal Affect, Normal Mood - Skin Skin Exam: Dry, Intact, Normal Color, Warm Additional comments: Sacral wound dressing dry and intact with no drainage. Assessment and Plan - Assessment and Plan (Free Text) Assessment: Patient is a 51 year old male with past medical history of drug and alcohol abuse who is admitted and treated for an epidural abscess T1-T5 and osteomyelitis. Plan: 1.Epidural space abscess s/p lamenectomy T2-T4 - MRI lumbar/thoracic spine resolving osteomyelitis, discitis and abscess has resolved - continue Merrem (weeke 12), per ID - continue to trend weekly CRP and ESR; if it trends down, will consider PO antibiotics - Pain control maintained with tramadol 2. 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 R LE DVT s/p IVC filter placed - INR 2.06 on 10/06 - Restarted Coumadin 5mg - Will check INR and labs qod - Continue to assess for bleeding - IVC filter in place 4. Neurogenic bladder - Haque in place 5. Several stage 2 pressure ulcer on lower back - improving - air mattress - Reposition q2H - continue multivitamin, zinc, vit. C PO - Wound care is following 6. GI/DVT ppx - Protonix 7. Hematuria - reach out to urology- appreciate input - urology to change haque, per note - continue to check PT-INR Patient seen and case discussed with attending physician, Dr. Hou. <Tobin Piedra - Last Filed: 10/07/16 17:45> Objective - Vital Signs/Intake and Output Vital Signs (last 24 hours): Temp Pulse Resp BP Pulse Ox 97.9 F 50 L 20 115/81 99 10/07/16 07:30 10/07/16 09:16 10/07/16 07:30 10/07/16 09:16 10/07/16 07:30 Intake and Output: 10/07/16 10/07/16 06:59 18:59 Intake Total 720 720 Output Total 1400 1250 Balance -680 -530 - Medications Medications: Current Medications Acetaminophen (Tylenol 325mg Tab) 650 mg PO Q4H PRN PRN Reason: Pain, Mild (1-3) Last Admin: 10/06/16 21:36 Dose: 650 mg Ascorbic Acid (Vitamin C 500 Mg Tab) 500 mg PO DAILY [facility] Last Admin: 10/07/16 09:16 Dose: 500 mg Baclofen (Lioresal) 20 mg PO TID [facility] Last Admin: 10/07/16 17:05 Dose: 20 mg Meropenem 1g/NS 100mL IVPB (Meropenem 1g/Ns 100ml Ivpb) 1 gm in 100 mls @ 100 mls/hr IVPB Q8 [facility] PRN Reason: Protocol Stop: 10/31/16 07:43 Last Admin: 10/07/16 15:14 Dose: 100 mls/hr Metoprolol Tartrate (Lopressor) 25 mg PO BID [facility] Last Admin: 10/07/16 17:05 Dose: 25 mg Multivitamins/Minerals (Therapeutic-M Tab) 1 tab PO DAILY [facility] Last Admin: 10/07/16 09:16 Dose: 1 tab Pantoprazole Sodium (Protonix Ec Tab) 40 mg PO ACB [facility] Last Admin: 10/07/16 09:15 Dose: 40 mg Pramipexole Dihydrochloride (Mirapex) 0.25 mg PO TID [facility] Last Admin: 10/07/16 17:05 Dose: 0.25 mg Silver Sulfadiazine (Silvadene 1% 20 Gm) 0 ea TOP BID [facility] Last Admin: 10/07/16 17:08 Dose: Not Given Warfarin Sodium (Coumadin) 5 mg PO 1800 [facility] PRN Reason: Protocol Last Admin: 10/03/16 17:53 Dose: 5 mg Zinc Sulfate (Zinc Sulfate 220 Mg Cap) 220 mg PO DAILY [facility] Last Admin: 10/07/16 09:16 Dose: 220 mg - Labs Labs: 10/06/16 06:30 10/05/16 05:05 PT 16.0 Seconds (9.9-11.8) H 10/07/16 14:00 INR 1.48 (0.93-1.08) H 10/07/16 14:00 APTT 41.0 Seconds (23.7-30.8) H 09/09/16 12:00 Attending/Attestation - Attestation I have personally seen and examined this patient.: Yes I have fully participated in the care of the patient.: Yes I have reviewed all pertinent clinical information, including history, physical exam and plan: Yes Notes (Text): 10/07/16 17:42 Attending note; Patient seen and examined with the resident. Patient is a 51 year old male with past medical history of drug and alcohol abuse who presented with back pain. He was found to have epidural abscess T1- T5 and osteomyelitis. He underwent emergent laminectomy and the epidural abscess was drained. He is on iv Merem. He has acute right lower extremity DVT. He is s/p IVC filter. He was on coumadin however he was noted to have hematuria again in his haque bag. This is clearing up with irrigation. started on Coumadin. Urology follow up was requested. Continue with physical therapy.
[2016-10-07 14:30] LABS: INR 1.48 (0.93-1.08)
[2016-10-08] MEDS: Meropenem 1g/NS 100mL IVPB 1 GM/100 ML PIGGYBACK IVPB SCH ×3 (05:04→21:18)
[2016-10-08 07:13] LABS: INR 1.37 (0.93-1.08); PROTHROMBIN TIME 14.8 Seconds (9.9-11.8)
[2016-10-08] MEDS: Pantoprazole 40 mg EC Tab PO SCH (08:30)
[2016-10-08] MEDS: Multivitamin With Minerals Tab PO SCH (09:41)
[2016-10-08] MEDS: Silver Sulfadiazine 1% Cream (20 gm) TOP SCH ×2 (11:00→17:20)
--- NOTE | 2016-10-08 11:15 | CP.PCM.PN ---
Subjective - Date & Time of Evaluation Date of Evaluation: 10/08/16 Time of Evaluation: 08:15 - Subjective Subjective: Comfortable in bed, not in distress, afebrile. Objective - Vital Signs/Intake and Output Vital Signs (last 24 hours): Temp Pulse Resp BP Pulse Ox 97.9 F 50 L 20 115/81 99 10/07/16 07:30 10/07/16 09:16 10/07/16 07:30 10/07/16 09:16 10/07/16 07:30 Intake and Output: 10/08/16 10/08/16 06:59 18:59 Intake Total 920 Output Total 1400 Balance -480 - Medications Medications: Current Medications Acetaminophen (Tylenol 325mg Tab) 650 mg PO Q4H PRN PRN Reason: Pain, Mild (1-3) Last Admin: 10/08/16 05:14 Dose: 650 mg Ascorbic Acid (Vitamin C 500 Mg Tab) 500 mg PO DAILY [facility] Last Admin: 10/07/16 09:16 Dose: 500 mg Baclofen (Lioresal) 20 mg PO TID [facility] Last Admin: 10/07/16 17:05 Dose: 20 mg Meropenem 1g/NS 100mL IVPB (Meropenem 1g/Ns 100ml Ivpb) 1 gm in 100 mls @ 100 mls/hr IVPB Q8 [facility] PRN Reason: Protocol Stop: 10/31/16 07:43 Last Admin: 10/08/16 05:04 Dose: 100 mls/hr Metoprolol Tartrate (Lopressor) 25 mg PO BID [facility] Last Admin: 10/07/16 17:05 Dose: 25 mg Multivitamins/Minerals (Therapeutic-M Tab) 1 tab PO DAILY [facility] Last Admin: 10/07/16 09:16 Dose: 1 tab Pantoprazole Sodium (Protonix Ec Tab) 40 mg PO ACB [facility] Last Admin: 10/07/16 09:15 Dose: 40 mg Pramipexole Dihydrochloride (Mirapex) 0.25 mg PO TID [facility] Last Admin: 10/07/16 17:05 Dose: 0.25 mg Silver Sulfadiazine (Silvadene 1% 20 Gm) 0 ea TOP BID [facility] Last Admin: 10/07/16 17:08 Dose: Not Given Warfarin Sodium (Coumadin) 5 mg PO 1800 [facility] PRN Reason: Protocol Last Admin: 10/07/16 17:48 Dose: 5 mg Zinc Sulfate (Zinc Sulfate 220 Mg Cap) 220 mg PO DAILY [facility] Last Admin: 10/07/16 09:16 Dose: 220 mg - Labs Labs: 10/06/16 06:30 10/05/16 05:05 PT 14.8 Seconds (9.9-11.8) H 10/08/16 06:30 INR 1.37 (0.93-1.08) H 10/08/16 06:30 APTT 41.0 Seconds (23.7-30.8) H 09/09/16 12:00 - Constitutional Appears: Non-toxic, No Acute Distress - Head Exam Head Exam: NORMAL INSPECTION - Respiratory Exam Respiratory Exam: Decreased Breath Sounds - Cardiovascular Exam Cardiovascular Exam: +S1, +S2 - GI/Abdominal Exam GI & Abdominal Exam: Soft. 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 with associated cord compression and lower extremity paralysis and neurogenic bladder S/P neurosurgery for abscess drainage and laminectomy POD #88 Possible drug reaction to Rocephin Partial small bowel obstruction, clinically improved and resolved significant smoking history alcohol abuse obesity with BMI 40 Plan continue Merrem (now on more than 12 weeks of therapy) because the CRP is still elevated (slowly trending down); will continue follow up weekly ESR, CRP; repeat MRI shows improvement in marrow edema in the T3-T4 area but has not resolved - if the CRP continues to trend downwards on next measurement (ie. today), would consider changing to PO antibiotics (ie. Levaquin or Avelox) Will continue to monitor clinically
--- NOTE | 2016-10-08 15:07 | CP.PCM.PN ---
<STALIN PURDY - Last Filed: 10/08/16 15:13> Subjective - Date & Time of Evaluation Date of Evaluation: 10/08/16 Time of Evaluation: 08:50 - Subjective Subjective: Medicine Progress Note: Pt was seen and assessed at bedside. Pt had no new complaints this morning. Pt denies fever, headache, chills, shortness of breath, chest pain, N/V, abdominal pain or burning with urination. Objective - Vital Signs/Intake and Output Vital Signs (last 24 hours): Temp Pulse Resp BP Pulse Ox 97.7 F 68 20 118/69 97 10/08/16 07:30 10/08/16 09:41 10/08/16 07:30 10/08/16 09:41 10/08/16 07:30 Intake and Output: 10/08/16 10/08/16 06:59 18:59 Intake Total 920 780 Output Total 1400 1000 Balance -480 -220 - Medications Medications: Current Medications Acetaminophen (Tylenol 325mg Tab) 650 mg PO Q4H PRN PRN Reason: Pain, Mild (1-3) Last Admin: 10/08/16 05:14 Dose: 650 mg Ascorbic Acid (Vitamin C 500 Mg Tab) 500 mg PO DAILY [facility] Last Admin: 10/08/16 09:41 Dose: 500 mg Baclofen (Lioresal) 20 mg PO TID [facility] Last Admin: 10/08/16 13:47 Dose: 20 mg Meropenem 1g/NS 100mL IVPB (Meropenem 1g/Ns 100ml Ivpb) 1 gm in 100 mls @ 100 mls/hr IVPB Q8 [facility] PRN Reason: Protocol Stop: 10/31/16 07:43 Last Admin: 10/08/16 13:46 Dose: 100 mls/hr Metoprolol Tartrate (Lopressor) 25 mg PO BID [facility] Last Admin: 10/08/16 09:41 Dose: 25 mg Multivitamins/Minerals (Therapeutic-M Tab) 1 tab PO DAILY [facility] Last Admin: 10/08/16 09:41 Dose: 1 tab Pantoprazole Sodium (Protonix Ec Tab) 40 mg PO ACB [facility] Last Admin: 10/08/16 08:30 Dose: 40 mg Pramipexole Dihydrochloride (Mirapex) 0.25 mg PO TID [facility] Last Admin: 10/08/16 13:47 Dose: 0.25 mg Silver Sulfadiazine (Silvadene 1% 20 Gm) 0 ea TOP BID [facility] Last Admin: 10/08/16 11:00 Dose: 1 applic Warfarin Sodium (Coumadin) 5 mg PO 1800 [facility] PRN Reason: Protocol Last Admin: 10/07/16 17:48 Dose: 5 mg Zinc Sulfate (Zinc Sulfate 220 Mg Cap) 220 mg PO DAILY [facility] Last Admin: 10/08/16 09:40 Dose: 220 mg - Labs Labs: 10/06/16 06:30 10/05/16 05:05 PT 14.8 Seconds (9.9-11.8) H 10/08/16 06:30 INR 1.37 (0.93-1.08) H 10/08/16 06:30 APTT 41.0 Seconds (23.7-30.8) H 09/09/16 12:00 - Constitutional Appears: No Acute Distress - Head Exam Head Exam: NORMAL INSPECTION - Eye Exam Eye Exam: EOMI, Normal appearance - ENT Exam ENT Exam: Mucous Membranes Moist, Normal Exam - Neck Exam Neck Exam: Full ROM - Respiratory Exam Respiratory Exam: Clear to Ausculation Bilateral, NORMAL BREATHING PATTERN. absent: Rales, Rhonchi, Wheezes, Respiratory Distress - Cardiovascular Exam Cardiovascular Exam: REGULAR RHYTHM, +S1, +S2. absent: Murmur - GI/Abdominal Exam GI & Abdominal Exam: Normal Bowel Sounds. absent: Distended, Guarding, Tenderness - Extremities Exam Extremities Exam: absent: Calf Tenderness, Pedal Edema - Neurological Exam Neurological Exam: Alert, Awake, Oriented x3 - Psychiatric Exam Psychiatric exam: Normal Affect, Normal Mood - Skin Skin Exam: Dry, Intact, Normal Color, Warm - Additional Findings Additional findings: Sacral wound dressing clean, dry and intact. Assessment and Plan - Assessment and Plan (Free Text) Assessment: Patient is a 51 year old male with past medical history of drug and alcohol abuse who is admitted and treated for an epidural abscess T1-T5 and osteomyelitis. Plan: 1.Epidural space abscess s/p lamenectomy T2-T4 - MRI lumbar/thoracic spine resolving osteomyelitis, discitis and abscess has resolved - continue Merrem (week 13), per ID - continue to trend weekly CRP and ESR; ID will consider PO antibiotics if these start to trend downward - Pain control maintained with tramadol 2. 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 R LE DVT s/p IVC filter placed - INR 1.37 - Continue Coumadin 5mg - Will check INR and labs qod - Continue to assess for bleeding - IVC filter in place 4. Neurogenic bladder - Haque in place 5. Several stage 2 pressure ulcer on lower back - improving - air mattress - Reposition q2H - continue multivitamin, zinc, vit. C PO - Wound care is following 6. GI/DVT ppx - Protonix 7. Hematuria - reach out to urology- appreciate input - urology to change haque, per note - continue to check PT-INR Patient seen and case discussed with attending physician, Dr. Piedra. <Tobin Piedra - Last Filed: 10/08/16 16:45> Objective - Vital Signs/Intake and Output Vital Signs (last 24 hours): Temp Pulse Resp BP Pulse Ox 97.7 F 68 20 118/69 97 10/08/16 07:30 10/08/16 09:41 10/08/16 07:30 10/08/16 09:41 10/08/16 07:30 Intake and Output: 10/08/16 10/08/16 06:59 18:59 Intake Total 920 780 Output Total 1400 1000 Balance -480 -220 - Medications Medications: Current Medications Acetaminophen (Tylenol 325mg Tab) 650 mg PO Q4H PRN PRN Reason: Pain, Mild (1-3) Last Admin: 10/08/16 05:14 Dose: 650 mg Ascorbic Acid (Vitamin C 500 Mg Tab) 500 mg PO DAILY [facility] Last Admin: 10/08/16 09:41 Dose: 500 mg Baclofen (Lioresal) 20 mg PO TID [facility] Last Admin: 10/08/16 13:47 Dose: 20 mg Meropenem 1g/NS 100mL IVPB (Meropenem 1g/Ns 100ml Ivpb) 1 gm in 100 mls @ 100 mls/hr IVPB Q8 [facility] PRN Reason: Protocol Stop: 10/31/16 07:43 Last Admin: 10/08/16 13:46 Dose: 100 mls/hr Metoprolol Tartrate (Lopressor) 25 mg PO BID [facility] Last Admin: 10/08/16 09:41 Dose: 25 mg Multivitamins/Minerals (Therapeutic-M Tab) 1 tab PO DAILY [facility] Last Admin: 10/08/16 09:41 Dose: 1 tab Pantoprazole Sodium (Protonix Ec Tab) 40 mg PO ACB [facility] Last Admin: 10/08/16 08:30 Dose: 40 mg Pramipexole Dihydrochloride (Mirapex) 0.25 mg PO TID [facility] Last Admin: 10/08/16 13:47 Dose: 0.25 mg Silver Sulfadiazine (Silvadene 1% 20 Gm) 0 ea TOP BID [facility] Last Admin: 10/08/16 11:00 Dose: 1 applic Warfarin Sodium (Coumadin) 5 mg PO 1800 [facility] PRN Reason: Protocol Last Admin: 10/07/16 17:48 Dose: 5 mg Zinc Sulfate (Zinc Sulfate 220 Mg Cap) 220 mg PO DAILY [facility] Last Admin: 10/08/16 09:40 Dose: 220 mg - Labs Labs: 10/06/16 06:30 10/05/16 05:05 PT 14.8 Seconds (9.9-11.8) H 10/08/16 06:30 INR 1.37 (0.93-1.08) H 10/08/16 06:30 APTT 41.0 Seconds (23.7-30.8) H 09/09/16 12:00 Attending/Attestation - Attestation I have personally seen and examined this patient.: Yes I have fully participated in the care of the patient.: Yes I have reviewed all pertinent clinical information, including history, physical exam and plan: Yes Notes (Text): 10/08/16 16:44 Attending note; Patient seen and examined with the resident. Patient is a 51 year old male with past medical history of drug and alcohol abuse who presented with back pain. He was found to have epidural abscess T1- T5 and osteomyelitis. He underwent emergent laminectomy and the epidural abscess was drained. He is on iv Merem. He has acute right lower extremity DVT. He is s/p IVC filter. hematuria cleared. started on Coumadin. case discussed with urologist Dr. Iqbal in detail. Continue with physical therapy.
[2016-10-09] MEDS: Meropenem 1g/NS 100mL IVPB 1 GM/100 ML PIGGYBACK IVPB SCH (05:53)
[2016-10-09 06:12] LABS: INR 1.37 (0.93-1.08); PROTHROMBIN TIME 14.8 Seconds (9.9-11.8)
[2016-10-09 07:59] VITALS: BP 126/80; PULSE 66; RESP 19; TEMP 97.6; O2SAT 98
[2016-10-09] MEDS: Pantoprazole 40 mg EC Tab PO SCH (08:28)
[2016-10-09] MEDS: Multivitamin With Minerals Tab PO SCH (10:47)
[2016-10-09] MEDS: Silver Sulfadiazine 1% Cream (20 gm) TOP SCH (10:48)
--- NOTE | 2016-10-09 15:04 | CP.PCM.DIS ---
<STALIN PURDY - Last Filed: 10/09/16 15:01> Provider - Provider Date of Admission: 07/07/16 14:40 Attending physician: Tobin Piedra MD Primary care physician: None Consults: Critical Care: Tari Cardiology: Taisha Neurology: Zee ID: Berna Vazquez Neurosurgery: Mike Hematology: Kelvin/Judith Gastroenterology: Narendra Urology: Rasheed Nephrology: Sita Psychiatry: Kody Hoang Interventional Radiology: Bello Surgery: Dexter Time Spent in preparation of Discharge (in minutes): 49 Hospital Course - Lab Results Lab Results: Micro Results 08/01/16 15:20 Stool C. difficile Antigen & Toxin A,B (M - Final 07/27/16 11:45 Blood-Venous Blood Culture - Final NO GROWTH AFTER 5 DAYS 07/27/16 11:45 Blood-Venous Gram Stain - Final TEST NOT PERFORMED 07/27/16 11:30 Blood-Venous Blood Culture - Final NO GROWTH AFTER 5 DAYS 07/27/16 11:30 Blood-Venous Gram Stain - Final TEST NOT PERFORMED 07/27/16 22:40 Urine,Mackenzie Urine Culture - Final No Growth (<1,000 CFU/ML) 07/24/16 21:26 Stool Stool Culture - Final NO SALMONELLA, SHIGELLA OR CAMPYLOBACTER ISOLATED. 07/24/16 21:26 Stool C. difficile Antigen & Toxin A,B (M - Final 07/07/16 15:25 Other: Please Indicate Gram Stain - Final 07/07/16 15:25 Other: Please Indicate Anaerobic Culture - Final NO ANAEROBES ISOLATED. 07/07/16 15:25 Other: Please Indicate Wound Culture - Final Streptococcus Pneumoniae 07/07/16 15:25 Other: Please Indicate Gram Stain - Final 07/07/16 15:25 Other: Please Indicate Body Fluid Culture - Final Streptococcus Pneumoniae 07/07/16 17:10 Nose MRSA Culture (Admit) - Final MRSA NOT DETECTED Most Recent Lab Values WBC 6.8 10^3/ul (4.5-11.0) 10/06/16 06:30 RBC 4.61 10^6/uL (3.5-6.1) 10/06/16 06:30 Hgb 13.0 gm/dL (14.0-18.0) L 10/06/16 06:30 Hct 39.7 % (42.0-52.0) L 10/06/16 06:30 MCV 86.1 fL (80.0-105.0) 10/06/16 06:30 MCH 28.2 pg (25.0-35.0) 10/06/16 06:30 MCHC 32.7 g/dl (31.0-37.0) 10/06/16 06:30 RDW 14.0 % (11.5-14.5) 10/06/16 06:30 Plt Count 157 10^3/uL (120.0-450.0) 10/06/16 06:30 MPV 12.6 fl (7.0-11.0) H 10/06/16 06:30 Gran % 70.8 % (50.0-68.0) H 09/16/16 11:30 Lymph % (Auto) 19.1 % (22.0-35.0) L 09/16/16 11:30 [place] % (Auto) 6.1 % (1.0-6.0) H 09/16/16 11:30 Eos % (Auto) 3.8 % (1.5-5.0) 09/16/16 11:30 Baso % (Auto) 0.2 % (0.0-3.0) 09/16/16 11:30 Gran # 4.64 (1.4-6.5) 09/16/16 11:30 Lymph # 1.3 (1.2-3.4) 09/16/16 11:30 [place] # 0.4 (0.1-0.6) 09/16/16 11:30 Eos # 0.3 (0.0-0.7) 09/16/16 11:30 Baso # 0.01 K/mm3 (0.0-2.0) 09/16/16 11:30 ESR 43 mm/hr (0.00-15.0) H 10/08/16 11:30 PT 14.8 Seconds (9.9-11.8) H 10/09/16 05:55 INR 1.37 (0.93-1.08) H 10/09/16 05:55 APTT 41.0 Seconds (23.7-30.8) H 09/09/16 12:00 Thrombin Time 16 sec (13-19) 07/07/16 07:30 Lupus Anticoagulant see note (()) H 07/07/16 07:30 LA PTT Screen 44 sec (<=40) H 07/07/16 07:30 dRVVT Mixing Study 32 sec (<=45) 07/07/16 07:30 LA dRVVT Mix Ratio See quest report 07/07/16 07:30 dRVVT Mix Interpret Not indicated (()) 07/07/16 07:30 Hexagonal Phase Confirm Weak positive (Negative) H 07/07/16 07:30 Protein C Activity 127 % (70-180) 07/07/16 07:30 Protein S Activity 108 % (70-150) 07/07/16 07:30 Antithrombin III Activ 124 % activity (80-120) H 07/07/16 06:45 Factor V see note (()) 07/07/16 06:45 pCO2 39 mm/Hg (35-45) 07/10/16 07:20 pO2 74.0 mm/Hg (80-100) L 07/10/16 07:20 HCO3 27.7 mmol/L (21-28) 07/10/16 07:20 ABG pH 7.46 (7.35-7.45) H 07/10/16 07:20 ABG Total CO2 28.9 mmol.L (22-28) H 07/10/16 07:20 ABG O2 Saturation 96.4 % (95-98) 07/10/16 07:20 ABG O2 Content 14.5 ML/dl (15-23) L 07/10/16 07:20 ABG Base Excess 3.6 mmol/L (-2.0-3.0) H 07/10/16 07:20 ABG Hemoglobin 10.8 g/dL (11.7-17.4) L 07/10/16 07:20 ABG Carboxyhemoglobin 1.0 % (0.5-1.5) 07/10/16 07:20 POC ABG HHb (Measured) 3.5 % (0-5) 07/10/16 07:20 ABG Methemoglobin 0.7 % (0.0-3.0) 07/10/16 07:20 ABG O2 Capacity 15.0 mL/dl (16-24) L 07/10/16 07:20 ABG Potassium 3.4 mmol/L (3.6-5.2) L 07/10/16 01:20 Hgb O2 Saturation 94.9 % (95.0-98.0) L 07/10/16 07:20 Sodium 141.0 mmol/L (132-148) 07/10/16 01:20 Chloride 113.0 mmol/L (98-107) H 07/10/16 01:20 Glucose 89 mg/dl (75-110) 07/10/16 01:20 Lactate 0.5 mmol/L (0.7-2.1) L 07/10/16 01:20 FiO2 40.0 % 07/10/16 07:20 Sodium 140 mmol/L (132-148) 10/05/16 05:05 Potassium 3.9 mmol/L (3.6-5.0) 10/05/16 05:05 Chloride 102 mmol/L (98-107) 10/05/16 05:05 Carbon Dioxide 28 mmol/L (21-33) 10/05/16 05:05 Anion Gap 14 (10-20) 10/05/16 05:05 BUN 17 mg/dL (7-21) 10/05/16 05:05 Creatinine 0.6 mg/dL (0.5-1.4) 10/05/16 05:05 Est GFR ( Amer) > 60 10/05/16 05:05 Est GFR (Non-Af Amer) > 60 10/05/16 05:05 POC Glucose (mg/dL) 117 mg/dL (65-110) H 08/19/16 16:02 Random Glucose 95 mg/dL (70-110) 10/05/16 05:05 Hemoglobin A1c 6.3 % (4.2-6.5) 07/06/16 19:40 Uric Acid 5.9 mg/dL (3.5-8.5) 07/17/16 06:45 Calcium 9.6 mg/dL (8.4-10.5) 10/05/16 05:05 Phosphorus 4.1 mg/dL (2.5-4.5) 08/14/16 07:00 Magnesium 1.8 mg/dL (1.7-2.2) 08/14/16 07:00 Iron 35 ug/dL (45-180) L 07/11/16 03:01 TIBC 325 ug/dL (261-462) 07/11/16 03:01 % Saturation 11 % (20-55) L 07/11/16 03:01 Ferritin 604.0 ng/mL 07/11/16 03:01 Total Bilirubin 0.4 mg/dL (0.2-1.3) 09/16/16 11:30 AST 27 U/L (15-59) 09/16/16 11:30 ALT 48 U/L (7-56) 09/16/16 11:30 Alkaline Phosphatase 63 U/L (38-133) 09/16/16 11:30 Lactate Dehydrogenase 497 U/L (333-699) 07/07/16 09:00 Total Creatine Kinase 536 U/L (35-230) H 07/08/16 05:30 CK-MB (CK-2) 6.1 ng/mL (0.0-3.6) H 07/08/16 05:30 CK-MB (CK-2) % 1.1 % (2.5-3.0) L 07/08/16 05:30 Troponin I 0.01 ng/mL 07/07/16 06:45 C-React Prot High Sens 2.61 mg/L (1.00-3.00) 10/08/16 09:50 Total Protein 6.9 g/dL (5.8-8.3) 09/16/16 11:30 Total Protein (PEP) 5.9 g/dL (6.1-8.1) L 07/09/16 05:40 Albumin 3.6 g/dL (3.0-4.8) 09/16/16 11:30 Albumin (PEP) 2.7 g/dL (3.8-4.8) L 07/09/16 05:40 Globulin 3.3 gm/dL 09/16/16 11:30 Albumin/Globulin Ratio 1.1 (1.1-1.8) 09/16/16 11:30 Yqvkt-0-Fnxrbqidl 0.5 g/dL (0.2-0.3) H 07/09/16 05:40 Igjdq-2-Acquxltwy 0.9 g/dL (0.5-0.9) 07/09/16 05:40 Dibk-1-Qmugthzi 0.4 g/dL (0.4-0.6) 07/09/16 05:40 Ykol-0-Itleovdr 0.4 g/dL (0.2-0.5) 07/09/16 05:40 Gamma Globulins 1.0 g/dL (0.8-1.7) 07/09/16 05:40 Abnorm Protein Band 1 TEST NOT PERFORMED 07/09/16 05:40 Abnorm Protein Band 2 TEST NOT PERFORMED 07/09/16 05:40 Abnorm Protein Band 3 TEST NOT PERFORMED 07/09/16 05:40 Triglycerides 104 mg/dL (35-160) 07/06/16 19:40 Cholesterol 174 mg/dL (130-200) 07/06/16 19:40 LDL Cholesterol Direct 101 mg/dL (0-129) 07/06/16 19:40 HDL Cholesterol 37 mg/dL (29-60) 07/06/16 19:40 Lipase 36 U/L (23-300) 07/06/16 16:30 Carcinoembryonic Ag 1.9 ng/mL (0.0-3.0) 07/07/16 08:00 Prostate Specific Ag 1.3 ng/mL (0.00-2.5) 07/07/16 08:00 Vitamin B12 327 pg/mL (239-931) 07/11/16 03:01 Folate 7.8 ng/mL 07/11/16 03:01 Procalcitonin 0.08 NG/ML (0.19-0.49) L 07/27/16 07:00 TSH 3rd Generation 0.79 mIU/mL (0.46-4.68) 07/06/16 19:40 Arterial Blood Potassium 3.4 mmol/L (3.6-5.2) L 07/10/16 01:20 Urine Color Yellow (YELLOW) 10/06/16 08:50 Urine Appearance Turbid (CLEAR) 10/06/16 08:50 Urine pH 6.0 (4.7-8.0) 10/06/16 08:50 Ur Specific [place] >= 1.030 (1.005-1.035) 10/06/16 08:50 Urine Protein 100 mg/dL (<30 mg/dL) H 10/06/16 08:50 Urine Glucose (UA) Negative mg/dL (NEGATIVE) 10/06/16 08:50 Urine Ketones Negative mg/dL (NEGATIVE) 10/06/16 08:50 Urine Blood Large (NEGATIVE) H 10/06/16 08:50 Urine Nitrate Negative (NEGATIVE) 10/06/16 08:50 Urine Bilirubin Negative (NEGATIVE) 10/06/16 08:50 Urine Urobilinogen 0.2 E.U./dL (<1 E.U./dL) 10/06/16 08:50 Ur Leukocyte Esterase Negative Ang/uL (NEGATIVE) 10/06/16 08:50 Urine RBC Tntc /hpf (0-2) 10/06/16 08:50 Urine WBC 1 - 3 /hpf (0-6) 10/06/16 08:50 Ur Epithelial Cells 0 - 2 /hpf (0-5) 10/06/16 08:50 Uric Acid Crystals Few /hpf 07/16/16 20:50 Amorphous Sediment Few 07/16/16 20:50 Urine Bacteria Few (NEG) 10/06/16 08:50 Hyaline Casts 0 - 2 /hpf 07/16/16 20:50 Coarse Granular Casts Trace /hpf (0-2) H 07/16/16 20:50 Urine Other Uyeast 07/16/16 20:50 Urine Eosinophils Negative 07/17/16 01:45 Ur Random Creatinine 133 mg/dL 07/17/16 01:45 Stool Occult Blood Positive (NEGATIVE) H 07/09/16 21:45 Vancomycin Trough < 5.0 ug/mL (5.0-10.0) L 07/09/16 10:55 Urine Opiates Screen Positive (NEGATIVE) H 07/07/16 17:15 Urine Methadone Screen Negative (NEGATIVE) 07/07/16 17:15 Ur Barbiturates Screen Negative (NEGATIVE) 07/07/16 17:15 Ur Phencyclidine Scrn Negative (NEGATIVE) 07/07/16 17:15 Ur Amphetamines Screen Negative (NEGATIVE) 07/07/16 17:15 U Benzodiazepines Scrn Positive (NEGATIVE) H 07/07/16 17:15 U Oth Cocaine Metabols Positive (NEGATIVE) H 07/07/16 17:15 U Cannabinoids Screen Negative (NEGATIVE) 07/07/16 17:15 Alcohol, Quantitative < 10 mg/dL (0-10) 07/07/16 14:00 KAY & SPEP Interp See note (()) 07/09/16 05:40 Complement C3 177.0 mg/dL (88.0-165.0) H 07/17/16 06:45 Complement C4 55.9 mg/dL (14.0-44.0) H 07/17/16 06:45 Hepatitis A IgM Ab Negative (NEGATIVE) 07/07/16 14:00 Hep Bs Antigen Negative (NEGATIVE) 07/07/16 14:00 Hep B Core IgM Ab Negative (NEGATIVE) 07/07/16 14:00 Hepatitis C Antibody Negative (NEGATIVE) 07/07/16 14:00 HIV 1&2 Ag/Ab, 4th Gen Nonreactive (Nonreactive) 07/07/16 13:20 - Hospital Course Hospital Course: 51 year old male who denies prior past medical history presented to [facility] complaining of chest pain and low back pain. Bilateral Venous Duplex revealed RLE DVT. Hematology was consulted. CT Lumbar Spine showed foraminal stenosis at L3-4, L4-5 and L5-S1 and Neurology was consulted. Cardiology was consulted and chest X-Ray, ECG and serial troponins were all negative. Starting on 07/07, patient could not feel his lower extremities, unable to move both legs, and have new onset urinary incontinence. Lumbar MRI showed no cauda equina and thoracic MRI showed T3, T4 vertebral bodies suspicious for metastatic disease vs osteomyelitis. Fluid collection in ventral epidural space T1 to T5 with cord compression and obliteration of subacrachnoid space. He underwent Emergent laminectomy, T2-T4, with Dr Mora. Pus was found in spinal canal. Purulent fluid was sent for gram stain and culture. He was started on Meropenum and Vancomycin. He developed ileus and NGT placed. CT chest /Abd/pelvis with PO and IV contrast showed contrast retention in stomach, ileus , and large amount of stool in bowel. Gastroenterology was consulted. Pulmonology started patient on Bipap and IS. Patient had cardiopulmonary arrest during jose manuel-procedural intubation for EGD after coffee ground emesis. He became increasingly hypoxic during intubation and developed PEA. ACLS was initiated. Chest compressions started. Received one dose of epinephrine. ROSC in 1 minute. Then, he had a brief NSVT after epi. Patient was stabilized. After patient was stabilized, he was moved to the floors where supportive care was provided by the medicine teams and consultants. Issues were addressed as they arose. Social work, Case Management and PT continued to work with patient until his DC to [facility] on 10/09/16. - Date & Time of H&P Date of H&P: 07/06/16 Time of H&P: 20:12 Discharge Exam - Head Exam Head Exam: NORMAL INSPECTION - Eye Exam Eye Exam: EOMI, Normal appearance, PERRL - ENT Exam ENT Exam: Mucous Membranes Moist, Normal Exam - Neck Exam Neck exam: Full Rom - Respiratory Exam Respiratory Exam: NORMAL BREATHING PATTERN, UNREMARKABLE. absent: Rales, Rhonchi, Wheezes - Cardiovascular Exam Cardiovascular Exam: REGULAR RHYTHM, RRR, +S1, +S2 - GI/Abdominal Exam GI & Abdominal Exam: Normal Bowel Sounds. absent: Distended, Guarding - Extremities Exam Extremities exam: pedal pulses present Additional comments: No calf tenderness or pedal edema bilaterally - Neurological Exam Neurological exam: Alert, Oriented x3 - Psychiatric Exam Psychiatric exam: Normal Affect, Normal Mood - Skin Skin Exam: Dry, Intact, Normal Color, Warm - Additional Findings Additional findings: Sacral wound dressing clean, dry and intact Discharge Plan - Follow Up Plan Condition: FAIR Disposition: HOME/ ROUTINE Instructions: Laminectomy (DC), Mackenzie Catheter Placement and Care (DC), Paraplegia (DC), Regular Diet (DC), Abscess (GEN), Bowel Obstruction (GEN) Additional Instructions: 1. Follow up with your Neurologist, Dr. Koch, upon discharge from rehab 2. Follow up with your Urologist, Dr. Iqbal, upon discharge from rehab 3. Follow up with your Actuarial Science Professor, Dr. Warren, upon discharge from rehab 4. Follow up with your Neurosurgeon, Dr. Mckeon, upon discharge from rehab 5. If your symptoms worsen or persist, please seek emergency medical attention 6. Continue Coumadin 5mg, check INR and adjust your dosage as needed Referrals: Johnny Mckeon MD [Staff Provider] - Mart Koch MD [Staff Provider] - EDSON DOTY [Family Provider] - Jorden Iqbal MD [Staff Provider] - Kelvin GUTIERREZ,MD Bryn [Staff Provider] - <Tobin Piedra - Last Filed: 10/10/16 15:21> Provider - Provider Date of Admission: 07/07/16 14:40 Attending physician: Tobin Piedra MD Hospital Course - Lab Results Lab Results: Micro Results 08/01/16 15:20 Stool C. difficile Antigen & Toxin A,B (M - Final 07/27/16 11:45 Blood-Venous Blood Culture - Final NO GROWTH AFTER 5 DAYS 07/27/16 11:45 Blood-Venous Gram Stain - Final TEST NOT PERFORMED 07/27/16 11:30 Blood-Venous Blood Culture - Final NO GROWTH AFTER 5 DAYS 07/27/16 11:30 Blood-Venous Gram Stain - Final TEST NOT PERFORMED 07/27/16 22:40 Urine,Mackenzie Urine Culture - Final No Growth (<1,000 CFU/ML) 07/24/16 21:26 Stool Stool Culture - Final NO SALMONELLA, SHIGELLA OR CAMPYLOBACTER ISOLATED. 07/24/16 21:26 Stool C. difficile Antigen & Toxin A,B (M - Final 07/07/16 15:25 Other: Please Indicate Gram Stain - Final 07/07/16 15:25 Other: Please Indicate Anaerobic Culture - Final NO ANAEROBES ISOLATED. 07/07/16 15:25 Other: Please Indicate Wound Culture - Final Streptococcus Pneumoniae 07/07/16 15:25 Other: Please Indicate Gram Stain - Final 07/07/16 15:25 Other: Please Indicate Body Fluid Culture - Final Streptococcus Pneumoniae 07/07/16 17:10 Nose MRSA Culture (Admit) - Final MRSA NOT DETECTED Most Recent Lab Values WBC 6.8 10^3/ul (4.5-11.0) 10/06/16 06:30 RBC 4.61 10^6/uL (3.5-6.1) 10/06/16 06:30 Hgb 13.0 gm/dL (14.0-18.0) L 10/06/16 06:30 Hct 39.7 % (42.0-52.0) L 10/06/16 06:30 MCV 86.1 fL (80.0-105.0) 10/06/16 06:30 MCH 28.2 pg (25.0-35.0) 10/06/16 06:30 MCHC 32.7 g/dl (31.0-37.0) 10/06/16 06:30 RDW 14.0 % (11.5-14.5) 10/06/16 06:30 Plt Count 157 10^3/uL (120.0-450.0) 10/06/16 06:30 MPV 12.6 fl (7.0-11.0) H 10/06/16 06:30 Gran % 70.8 % (50.0-68.0) H 09/16/16 11:30 Lymph % (Auto) 19.1 % (22.0-35.0) L 09/16/16 11:30 [place] % (Auto) 6.1 % (1.0-6.0) H 09/16/16 11:30 Eos % (Auto) 3.8 % (1.5-5.0) 09/16/16 11:30 Baso % (Auto) 0.2 % (0.0-3.0) 09/16/16 11:30 Gran # 4.64 (1.4-6.5) 09/16/16 11:30 Lymph # 1.3 (1.2-3.4) 09/16/16 11:30 [place] # 0.4 (0.1-0.6) 09/16/16 11:30 Eos # 0.3 (0.0-0.7) 09/16/16 11:30 Baso # 0.01 K/mm3 (0.0-2.0) 09/16/16 11:30 ESR 43 mm/hr (0.00-15.0) H 10/08/16 11:30 PT 14.8 Seconds (9.9-11.8) H 10/09/16 05:55 INR 1.37 (0.93-1.08) H 10/09/16 05:55 APTT 41.0 Seconds (23.7-30.8) H 09/09/16 12:00 Thrombin Time 16 sec (13-19) 07/07/16 07:30 Lupus Anticoagulant see note (()) H 07/07/16 07:30 LA PTT Screen 44 sec (<=40) H 07/07/16 07:30 dRVVT Mixing Study 32 sec (<=45) 07/07/16 07:30 LA dRVVT Mix Ratio See quest report 07/07/16 07:30 dRVVT Mix Interpret Not indicated (()) 07/07/16 07:30 Hexagonal Phase Confirm Weak positive (Negative) H 07/07/16 07:30 Protein C Activity 127 % (70-180) 07/07/16 07:30 Protein S Activity 108 % (70-150) 07/07/16 07:30 Antithrombin III Activ 124 % activity (80-120) H 07/07/16 06:45 Factor V see note (()) 07/07/16 06:45 pCO2 39 mm/Hg (35-45) 07/10/16 07:20 pO2 74.0 mm/Hg (80-100) L 07/10/16 07:20 HCO3 27.7 mmol/L (21-28) 07/10/16 07:20 ABG pH 7.46 (7.35-7.45) H 07/10/16 07:20 ABG Total CO2 28.9 mmol.L (22-28) H 07/10/16 07:20 ABG O2 Saturation 96.4 % (95-98) 07/10/16 07:20 ABG O2 Content 14.5 ML/dl (15-23) L 07/10/16 07:20 ABG Base Excess 3.6 mmol/L (-2.0-3.0) H 07/10/16 07:20 ABG Hemoglobin 10.8 g/dL (11.7-17.4) L 07/10/16 07:20 ABG Carboxyhemoglobin 1.0 % (0.5-1.5) 07/10/16 07:20 POC ABG HHb (Measured) 3.5 % (0-5) 07/10/16 07:20 ABG Methemoglobin 0.7 % (0.0-3.0) 07/10/16 07:20 ABG O2 Capacity 15.0 mL/dl (16-24) L 07/10/16 07:20 ABG Potassium 3.4 mmol/L (3.6-5.2) L 07/10/16 01:20 Hgb O2 Saturation 94.9 % (95.0-98.0) L 07/10/16 07:20 Sodium 141.0 mmol/L (132-148) 07/10/16 01:20 Chloride 113.0 mmol/L (98-107) H 07/10/16 01:20 Glucose 89 mg/dl (75-110) 07/10/16 01:20 Lactate 0.5 mmol/L (0.7-2.1) L 07/10/16 01:20 FiO2 40.0 % 07/10/16 07:20 Sodium 140 mmol/L (132-148) 10/05/16 05:05 Potassium 3.9 mmol/L (3.6-5.0) 10/05/16 05:05 Chloride 102 mmol/L (98-107) 10/05/16 05:05 Carbon Dioxide 28 mmol/L (21-33) 10/05/16 05:05 Anion Gap 14 (10-20) 10/05/16 05:05 BUN 17 mg/dL (7-21) 10/05/16 05:05 Creatinine 0.6 mg/dL (0.5-1.4) 10/05/16 05:05 Est GFR ( Amer) > 60 10/05/16 05:05 Est GFR (Non-Af Amer) > 60 10/05/16 05:05 POC Glucose (mg/dL) 117 mg/dL (65-110) H 08/19/16 16:02 Random Glucose 95 mg/dL (70-110) 10/05/16 05:05 Hemoglobin A1c 6.3 % (4.2-6.5) 07/06/16 19:40 Uric Acid 5.9 mg/dL (3.5-8.5) 07/17/16 06:45 Calcium 9.6 mg/dL (8.4-10.5) 10/05/16 05:05 Phosphorus 4.1 mg/dL (2.5-4.5) 08/14/16 07:00 Magnesium 1.8 mg/dL (1.7-2.2) 08/14/16 07:00 Iron 35 ug/dL (45-180) L 07/11/16 03:01 TIBC 325 ug/dL (261-462) 07/11/16 03:01 % Saturation 11 % (20-55) L 07/11/16 03:01 Ferritin 604.0 ng/mL 07/11/16 03:01 Total Bilirubin 0.4 mg/dL (0.2-1.3) 09/16/16 11:30 AST 27 U/L (15-59) 09/16/16 11:30 ALT 48 U/L (7-56) 09/16/16 11:30 Alkaline Phosphatase 63 U/L (38-133) 09/16/16 11:30 Lactate Dehydrogenase 497 U/L (333-699) 07/07/16 09:00 Total Creatine Kinase 536 U/L (35-230) H 07/08/16 05:30 CK-MB (CK-2) 6.1 ng/mL (0.0-3.6) H 07/08/16 05:30 CK-MB (CK-2) % 1.1 % (2.5-3.0) L 07/08/16 05:30 Troponin I 0.01 ng/mL 07/07/16 06:45 C-React Prot High Sens 2.61 mg/L (1.00-3.00) 10/08/16 09:50 Total Protein 6.9 g/dL (5.8-8.3) 09/16/16 11:30 Total Protein (PEP) 5.9 g/dL (6.1-8.1) L 07/09/16 05:40 Albumin 3.6 g/dL (3.0-4.8) 09/16/16 11:30 Albumin (PEP) 2.7 g/dL (3.8-4.8) L 07/09/16 05:40 Globulin 3.3 gm/dL 09/16/16 11:30 Albumin/Globulin Ratio 1.1 (1.1-1.8) 09/16/16 11:30 Grwgv-8-Mxvjxosyp 0.5 g/dL (0.2-0.3) H 07/09/16 05:40 Mnhbq-8-Zjfcvcamg 0.9 g/dL (0.5-0.9) 07/09/16 05:40 Ejqy-1-Asukzoux 0.4 g/dL (0.4-0.6) 07/09/16 05:40 Oqtr-6-Aneouaoi 0.4 g/dL (0.2-0.5) 07/09/16 05:40 Gamma Globulins 1.0 g/dL (0.8-1.7) 07/09/16 05:40 Abnorm Protein Band 1 TEST NOT PERFORMED 07/09/16 05:40 Abnorm Protein Band 2 TEST NOT PERFORMED 07/09/16 05:40 Abnorm Protein Band 3 TEST NOT PERFORMED 07/09/16 05:40 Triglycerides 104 mg/dL (35-160) 07/06/16 19:40 Cholesterol 174 mg/dL (130-200) 07/06/16 19:40 LDL Cholesterol Direct 101 mg/dL (0-129) 07/06/16 19:40 HDL Cholesterol 37 mg/dL (29-60) 07/06/16 19:40 Lipase 36 U/L (23-300) 07/06/16 16:30 Carcinoembryonic Ag 1.9 ng/mL (0.0-3.0) 07/07/16 08:00 Prostate Specific Ag 1.3 ng/mL (0.00-2.5) 07/07/16 08:00 Vitamin B12 327 pg/mL (239-931) 07/11/16 03:01 Folate 7.8 ng/mL 07/11/16 03:01 Procalcitonin 0.08 NG/ML (0.19-0.49) L 07/27/16 07:00 TSH 3rd Generation 0.79 mIU/mL (0.46-4.68) 07/06/16 19:40 Arterial Blood Potassium 3.4 mmol/L (3.6-5.2) L 07/10/16 01:20 Urine Color Yellow (YELLOW) 10/06/16 08:50 Urine Appearance Turbid (CLEAR) 10/06/16 08:50 Urine pH 6.0 (4.7-8.0) 10/06/16 08:50 Ur Specific [place] >= 1.030 (1.005-1.035) 10/06/16 08:50 Urine Protein 100 mg/dL (<30 mg/dL) H 10/06/16 08:50 Urine Glucose (UA) Negative mg/dL (NEGATIVE) 10/06/16 08:50 Urine Ketones Negative mg/dL (NEGATIVE) 10/06/16 08:50 Urine Blood Large (NEGATIVE) H 10/06/16 08:50 Urine Nitrate Negative (NEGATIVE) 10/06/16 08:50 Urine Bilirubin Negative (NEGATIVE) 10/06/16 08:50 Urine Urobilinogen 0.2 E.U./dL (<1 E.U./dL) 10/06/16 08:50 Ur Leukocyte Esterase Negative Ang/uL (NEGATIVE) 10/06/16 08:50 Urine RBC Tntc /hpf (0-2) 10/06/16 08:50 Urine WBC 1 - 3 /hpf (0-6) 10/06/16 08:50 Ur Epithelial Cells 0 - 2 /hpf (0-5) 10/06/16 08:50 Uric Acid Crystals Few /hpf 07/16/16 20:50 Amorphous Sediment Few 07/16/16 20:50 Urine Bacteria Few (NEG) 10/06/16 08:50 Hyaline Casts 0 - 2 /hpf 07/16/16 20:50 Coarse Granular Casts Trace /hpf (0-2) H 07/16/16 20:50 Urine Other Uyeast 07/16/16 20:50 Urine Eosinophils Negative 07/17/16 01:45 Ur Random Creatinine 133 mg/dL 07/17/16 01:45 Stool Occult Blood Positive (NEGATIVE) H 07/09/16 21:45 Vancomycin Trough < 5.0 ug/mL (5.0-10.0) L 07/09/16 10:55 Urine Opiates Screen Positive (NEGATIVE) H 07/07/16 17:15 Urine Methadone Screen Negative (NEGATIVE) 07/07/16 17:15 Ur Barbiturates Screen Negative (NEGATIVE) 07/07/16 17:15 Ur Phencyclidine Scrn Negative (NEGATIVE) 07/07/16 17:15 Ur Amphetamines Screen Negative (NEGATIVE) 07/07/16 17:15 U Benzodiazepines Scrn Positive (NEGATIVE) H 07/07/16 17:15 U Oth Cocaine Metabols Positive (NEGATIVE) H 07/07/16 17:15 U Cannabinoids Screen Negative (NEGATIVE) 07/07/16 17:15 Alcohol, Quantitative < 10 mg/dL (0-10) 07/07/16 14:00 KAY & SPEP Interp See note (()) 07/09/16 05:40 Complement C3 177.0 mg/dL (88.0-165.0) H 07/17/16 06:45 Complement C4 55.9 mg/dL (14.0-44.0) H 07/17/16 06:45 Hepatitis A IgM Ab Negative (NEGATIVE) 07/07/16 14:00 Hep Bs Antigen Negative (NEGATIVE) 07/07/16 14:00 Hep B Core IgM Ab Negative (NEGATIVE) 07/07/16 14:00 Hepatitis C Antibody Negative (NEGATIVE) 07/07/16 14:00 HIV 1&2 Ag/Ab, 4th Gen Nonreactive (Nonreactive) 07/07/16 13:20 Attending/Attestation - Attestation I have personally seen and examined this patient.: Yes I have fully participated in the care of the patient.: Yes I have reviewed all pertinent clinical information, including history, physical exam and plan: Yes Notes (Text): 10/10/16 15:19 Attending note; Patient seen and examined with the resident. Patient is a 51 year old male with past medical history of drug and alcohol abuse who presented with back pain. He was found to have epidural abscess T1- T5 and osteomyelitis. He underwent emergent laminectomy and the epidural abscess was drained. Treated with IV Merem for 12 weeks. CRP is normal. Case discussed with IDin detail. No need for further anti- biotics. He had acute right lower extremity DVT. He is s/p IVC filter. hematuria cleared. started on Coumadin.continue Mackenzie cath. Continue aggressive physical therapy. Transfer the to rehabilitation. diagnosis; Epidural abscess Status post laminectomy DVT paraplegia Indwelling Mackenzie catheter
--- NOTE | 2016-10-10 09:21 | PROCN ---
DATE: 10/09/2016 The patient is in bed, in no acute distress; was seen earlier today. PHYSICAL EXAMINATION: VITAL SIGNS: Temperature is 97, blood pressure is 120/70, respiratory rate of 16. HEENT: Unremarkable. NECK: Supple. LUNGS: Decreased breath sounds. HEART: Normal S1 and S2. ABDOMEN: Soft. LABORATORY DATA: Noted. ASSESSMENT AND PLAN: He is a 51-year-old with epidural abscess secondary to strep pneumonia associated with cord compression, lower extremity paralysis, neurogenic bladder, status post neurosurgery for abscess drainage and laminectomy, post procedure day #89, possible drug reaction, ceftriaxone, on meropenem. The patient now has a normal C-reactive protein and parameters are consistent with resolution of infection and currently on meropenem for possible discharge for a facility waiting.
--- NOTE | 2016-10-13 12:15 | PQF RESP ---
10/13/16 Dr. Musa Marc, This patient developed respiratory failure with hypoxia on 07/09 and was placed on a vent until 07/10. Please indicate whether respiratory failure is acute, chronic, or both. (Dr. Piedra requested that you respond to this query.) Thank you. Clarification of your documentation is requested to better reflect the severity of illness and intensity of treatment of your patient. Indicators present [] Use of Home Oxygen [x] Respiratory rate > 28 or <8/min (Labored respirations) [] PCO2 > 50 mm Hg or (Hypercapnia) (somnolence) [] PaO2 < 60 mm Hg or Hypoxemia (confusion) [] ABG blood gas pH < 7.35 [] SpO2 < 90% sat on Room Air [] Cyanosis [] Unable to Speak in Full Sentences [] Use of Accessory Muscles / Tripoding [] Wheezing [] Other: [] Location in the medical record that reflects the above clinical findings: [x patient underwent anesthesia with EGD and got intubated] Treatment Provided: [Intubation] PHYSICIAN'S RESPONSE Based on your medical judgment of the clinical indicators outlined above, are you treating this patient for a known or suspected: [] Acute Respiratory Failure (hypoxia or hypercapnia) [] Chronic Respiratory Failure (hypoxia or hypercapnia) [] Acute on Chronic Respiratory Failure (hypoxia or hypercapnia) [] Hypoxemia please specify ACUTE, CHRONIC or ACUTE on CHRONIC [] Other [X intubation post cardiac arrest -Got extubated the next day]_ [] If unable to determine, please check the box, sign and date. Present On Admission (POA) Indicator: [] Present at the time of admission [x] Not present at the time of admission [] Clinically Undetermined In responding to this query, please exercise your independent professional judgment. The fact that a question is asked does not imply that any particular answer is desired or expected. Thank you for your clarification on this documentation. If you have any questions please call:[ ] * Thank you, [ ] threader Chronic Respiratory Failure Description: Respiratory failure is a syndrome in which the respiratory system fails in one or both of its gas exchange functions: oxygenation and carbon dioxide elimination. In theory, respiratory failure is defined as a Pa02 value of <60 mm/Hg or a PaC02 of >50 mm/Hg. However, these values may be affected by renal compensation. Respiratory failure may be acute or chronic. While acute respiratory failure is characterized by life-threatening derangement in arterial blood gases and acid-base balance, the manifestations of chronic respiratory failure are less dramatic and may not be as readily apparent. Classifications: Respiratory failure may be classified as hypoxemic (usually characterized by Pa02 of <60 mm/Hg) or hypercapnic (usually characterized by PaC02 >50 mm/Hg) and either may be acute or chronic. Chronic hypercapnic respiratory failure develops over time and allows for renal compensation and an increase in bicarbonate concentration; therefore the pH is usually only slightly decreased. The distinction between acute and chronic hypoxemic respiratory failure cannot readily be made on the basis of ABGs; the clinical markers of chronic hypoxemia, such as polythycemia or cor pulmonale suggest a long standing disorder (chronic hypoxemic respiratory failure). Clinical Indicators: dyspnea at rest or "chronic" dyspnea, concomitant conditions such as polycythemia or cor pulmonale, requirement for continuous oxygen support, forced expiratory volume in one second (FEV1) of 49 or less, pursed lip breathing, "barrel" chest, hyperinflation by CXR, muscle wasting, malnutrition/obesity, poor exercise capacity, peripheral edema, description as a "blue bloater" (usually associated with chronic, obstructive bronchitis) or "pink puffer" (usually associated with emphysema) Risks: Chronic Hypoxemic Respiratory Failure - COPD, pulmonary fibrosis, asthma , pulmonary arterial hypertension, granulomatous lung diseases, congenital heart disease, bronchiectasis, kyphoscoliosis, obesity; Chronic Hypercapnic Respiratory Failure - COPD, severe asthma, myasthenia gravis, polyneuropathy, polio, head and cervical spine injuries, obesity hypoventilation syndrome. Treatment: supplemental oxygen, bronchodilators, corticosteroids, adequate nutrition, lung transplant References: Am. J. Respir. Crit. Care Med. "Global Strategy for the Diagnosis, Management and Prevention of COPD: GOLD Exectuive Summary," Hemanth Gould Anzu[place] - 2007; Proceedings of the [employer] "Mechanisms and Measurements of Dyspnea in COPD," [place] - 2006; WebMD; Respiratory Failure, Talib David MD - 09/2005; Valerio's Principles of Internal Medicine, 17th edition. Acute Respiratory Failure Acute Respiratory Failure indicators include: ~Respirations >28 ~Air hunger ~Use of accessory muscles of respiration ~Inability to speak in full sentences Cyanosis ~Pulse ox <90% RA or <95% on O2 pH <7.35 or >7.45 ~pO2 < 60 mm Hg (or 10mm below COPD patient's baseline) ~pCO2 >50mm Hg (or 10mm above COPD patient's baseline) "Respiratory failure may be assigned as a principal diagnosis when it is the condition established after study to be chiefly responsible for occasioning admission to the hospital. The fact that the respiratory failure was managed without intubation and mechanical ventilation does not preclude its use." [facility], 3rd Qtr., 1988, p. 7 MTDD
== END 2016-10-09 14:23 | DRG 581 ==
LOC: ED 15:55 → ERH 18:59 → 2RNO 21:12 → OBSVTOIN 07-07 14:40 → CCU 07-07 16:52 → 2RNO 07-12 13:40 → 2RSO 07-14 03:06 → 5RSO 07-22 16:16
PROVIDERS: ADMIT Internal Medicine; ATTEND Internal Medicine
PROC: 00NX0ZZ Release Thoracic Spinal Cord, Open Approach (ICD-10-PCS; principal; 2016-07-07 12:00)
PROC: 5A1945Z Respiratory Ventilation, 24-96 Consecutive Hours (ICD-10-PCS; 2016-07-09)
PROC: 5A12012 Performance of Cardiac Output, Single, Manual (ICD-10-PCS; 2016-07-09)
PROC: 0BH17EZ Insertion of Endotracheal Airway into Trachea, Via Natural or Artificial Opening (ICD-10-PCS; 2016-07-09)
PROC: 06H03DZ Insertion of Intraluminal Device into Inferior Vena Cava, Percutaneous Approach (ICD-10-PCS; 2016-07-10)
PROC: 0T9B8ZZ Drainage of Bladder, Via Natural or Artificial Opening Endoscopic (ICD-10-PCS; 2016-09-09)
PROC: 02HV33Z Insertion of Infusion Device into Superior Vena Cava, Percutaneous Approach (ICD-10-PCS; 2016-09-15)
PROC: B548ZZA Ultrasonography of Superior Vena Cava, Guidance (ICD-10-PCS; 2016-09-15)
PROC: B51NZZA Fluoroscopy of Left Upper Extremity Veins, Guidance (ICD-10-PCS; 2016-09-15)
DX: A41.9 Sepsis, unspecified organism (principal); G06.1 Intraspinal abscess and granuloma; J96.91 Respiratory failure, unspecified with hypoxia; Z99.11 Dependence on respirator [ventilator] status; J15.4 Pneumonia due to other streptococci; N17.9 Acute kidney failure, unspecified; K31.1 Adult hypertrophic pyloric stenosis; D68.59 Other primary thrombophilia; L89.151 Pressure ulcer of sacral region, stage 1; L89.152 Pressure ulcer of sacral region, stage 2; I82.411 Acute embolism and thrombosis of right femoral vein; L89.329 Pressure ulcer of left buttock, unspecified stage; L89.319 Pressure ulcer of right buttock, unspecified stage; I46.9 Cardiac arrest, cause unspecified; E87.0 Hyperosmolality and hypernatremia; D69.6 Thrombocytopenia, unspecified; E87.6 Hypokalemia; J98.11 Atelectasis; K56.0 Paralytic ileus; K91.89 Other postprocedural complications and disorders of digestive system; L02.212 Cutaneous abscess of back [any part, except buttock and flank]; E11.69 Type 2 diabetes mellitus with other specified complication; K92.2 Gastrointestinal hemorrhage, unspecified; N31.9 Neuromuscular dysfunction of bladder, unspecified; F14.90 Cocaine use, unspecified, uncomplicated; G82.20 Paraplegia, unspecified; G81.90 Hemiplegia, unspecified affecting unspecified side; I80.9 Phlebitis and thrombophlebitis of unspecified site; D50.9 Iron deficiency anemia, unspecified; D72.819 Decreased white blood cell count, unspecified; G89.29 Other chronic pain; M54.9 Dorsalgia, unspecified; Z86.61 Personal history of infections of the central nervous system; Z98.1 Arthrodesis status; Z79.01 Long term (current) use of anticoagulants; Z74.01 Bed confinement status; E66.9 Obesity, unspecified; Z68.41 Body mass index [BMI] 40.0-44.9, adult; F10.10 Alcohol abuse, uncomplicated; F17.210 Nicotine dependence, cigarettes, uncomplicated; I10 Essential (primary) hypertension; B95.3 Streptococcus pneumoniae as the cause of diseases classified elsewhere; J45.909 Unspecified asthma, uncomplicated; K59.2 Neurogenic bowel, not elsewhere classified; M46.90 Unspecified inflammatory spondylopathy, site unspecified; M47.9 Spondylosis, unspecified; M48.06 Spinal stenosis, lumbar region; M54.16 Radiculopathy, lumbar region; M86.9 Osteomyelitis, unspecified; N39.490 Overflow incontinence; R31.0 Gross hematuria; R33.9 Retention of urine, unspecified; R79.1 Abnormal coagulation profile; Z83.3 Family history of diabetes mellitus; Z53.8 Procedure and treatment not carried out for other reasons

== ENCOUNTER 2017-01-20 10:31 | Emergency (ER) | payer OTHER ==
[2017-01-20 10:33] VITALS: BMI 28.7
[2017-01-20 10:38] VITALS: O2SAT 100
--- NOTE | 2017-01-20 11:58 | ED PDOC ---
Arrival/HPI - General Chief Complaint: Trauma Time Seen by Provider: 01/20/17 10:35 Historian: Patient - History of Present Illness Narrative History of Present Illness (Text): 01/20/17 11:50 51yo quadriplegic with history of back pain, epidural abscess and surgical laminectomy biba for evaluation of back pain. Patient states he was dropped while been transported, and he landed on his back. He admits to pain to his back. States he came to ED for evaluation secondary to his laminectomy and chronic back pain history. He denies LOC, nausea, vomiting, any other complaint. Pt has baseline urinary incontinence. Past Medical History - Provider Review Nursing Documentation Reviewed: Yes - Cardiac Hx Cardiac Disorders: No - Pulmonary Hx Respiratory Disorders: No - Neurological Hx Paralysis: Yes Other/Comment: paraplegic - Hematological/Oncological Hx Blood Transfusions: Yes Hx Blood Transfusion Reaction: No - Musculoskeletal/Rheumatological Hx Falls: No Other/Comment: paraplegic - Genitourinary/Gynecological Hx Incontinence: Yes Other/Comment: has haque bag and diaper - Psychiatric Hx Substance Use: No - Surgical History Other/Comment: abcess surgery june 2015 - Anesthesia Hx Anesthesia Reactions: No Hx Malignant Hyperthermia: No Family/Social History - Physician Review Nursing Documentation Reviewed: Yes Family/Social History: Unknown Family HX Smoking Status: Heavy Smoker > 10 Cigarettes Daily Hx Alcohol Use: Yes (one beer daily) Hx Substance Use: No Allergies/Home Meds Allergies/Adverse Reactions: Allergies ceftriaxone [From Rocephin] Allergy (Verified 07/31/16 19:18) RASH Home Medications: Home Meds Medication Instructions Recorded Confirmed Gabapentin [Neurontin] 300 mg PO TID 01/20/17 01/20/17 Warfarin [Coumadin] 4 mg PO 1800 01/20/17 01/20/17 Review of Systems - Physician Review All systems were reviewed & negative as marked: Yes - Review of Systems Constitutional: Normal Eyes: Normal ENT: Normal Respiratory: Normal Cardiovascular: Normal Gastrointestinal: Normal Genitourinary Male: Normal Musculoskeletal: Back Pain Skin: Normal Neurological: Normal Endocrine: Normal Hemo/Lymphatic: Normal Psychiatric: Normal Physical Exam Vital Signs Reviewed: Yes Vital Signs Temp Pulse Resp BP Pulse Ox 01/20/17 13:22 65 18 135/79 100 01/20/17 11:54 68 18 138/86 100 01/20/17 10:38 97.8 F 70 18 141/92 H 100 Temperature: Afebrile Blood Pressure: Normal Pulse: Regular Respiratory Rate: Normal Appearance: Positive for: Well-Appearing, Non-Toxic, Comfortable Pain Distress: None Mental Status: Positive for: Alert and Oriented X 3 - Systems Exam Head: Present: Atraumatic, Normocephalic Pupils: Present: PERRL Extroacular Muscles: Present: EOMI Conjunctiva: Present: Normal Mouth: Present: Moist Mucous Membranes Neck: Present: Normal Range of Motion Respiratory/Chest: Present: Clear to Auscultation, Good Air Exchange. No: Respiratory Distress, Accessory Muscle Use Cardiovascular: Present: Regular Rate and Rhythm, Normal S1, S2. No: Murmurs Abdomen: Present: Normal Bowel Sounds. No: Tenderness, Distention, Peritoneal Signs Back: Present: Midline Tenderness (Thoracic ), Paraspinal Tenderness ( Parathoracic area) Upper Extremity: Present: Normal Inspection. No: Cyanosis, Edema Lower Extremity: Present: Normal Inspection. No: Edema Neurological: Present: GCS=15, CN II-XII Intact, Speech Normal, Other (B/L lower extremity loss of strenght and sensation secondary to old injury) Skin: Present: Warm, Dry, Normal Color. No: Rashes Psychiatric: Present: Alert, Oriented x 3, Normal Insight, Normal Concentration Medical Decision Making ED Course and Treatment: 01/20/17 13:42 PT in ED for stated history. He was comfortable in ED. His pain was controlled iwth Tylenol in ED. LS xray IMPRESSION: Straightened if not reversed curvature of the lumbar spine with multilevel advanced spondylosis appreciated. No fracture or spondylolisthesis identified this time. MRI or CT may be useful clinically warranted for follow-up. Incidental findings as discussed above. Xray result was DW the pt. He was advised to f/u with his Neurosurgeon if his pain persist or worsened for further outpt work up. On the incidental finding in the xray - PT denies abdominal pain. He asked for food and was noted to tolerate a sandwich. - RAD Interpretation Radiology Orders: 01/20/17 10:59 LS SPINE WITH OBL > 18 YRS OLD [RAD] Stat - Medication Orders Current Medication Orders: Discontinued Medications Acetaminophen (Tylenol 325mg Tab) 650 mg PO STAT STA Stop: 01/20/17 12:04 Last Admin: 01/20/17 12:09 Dose: 650 mg MAR Pain/Vitals Document 01/20/17 12:09 AB (Rec: 01/20/17 12:10 AB [id number]) Pain Reassessment Is This A Pain ReAssessment? Yes Sleep Is patient sleeping during reassessment? No Presence of Pain Presence of Pain Yes Pain Scale Used Pain Scale Used Numeric Location Upper or Lower Upper Pain Location Body Site Back Description Acute Intensity 7 Scale Used Numeric Radiation Location to neck Pain Behavior Grasping Site Aggravating Factors ADL's Changing Position Alleviating Factors Medication Re-Assess: MAR Pain/Vitals Document 01/20/17 13:09 AB (Rec: 01/20/17 13:18 AB [id number]) Pain Reassessment Is This A Pain ReAssessment? Yes Sleep Is patient sleeping during reassessment? No Presence of Pain Presence of Pain No Pain Scale Used Pain Scale Used Numeric Disposition/Present on Arrival - Present on Arrival Any Indicators Present on Arrival: No History of DVT/PE: No History of Uncontrolled Diabetes: No Urinary Catheter: Yes History of Decub. Ulcer: Yes (came in with left leg ulcer & sacral ulcer) History Surgical Site Infection Following: None - Disposition Have Diagnosis and Disposition been Completed?: Yes Diagnosis: Back pain Disposition: HOME/ ROUTINE Disposition Time: 13:35 Patient Plan: Discharge Patient Problems: Current Active Problems Problem Status Onset Back pain Acute Condition: STABLE Discharge Instructions (ExitCare): Back Pain (ED) Additional Instructions: Follow up with your doctor/Specialist Return to ED for any new or worsening symptoms Referrals: Giorgio Penn MD [Staff Provider] - Follow up with primary Forms: [place] ([place])
--- NOTE | 2017-01-20 13:26 | RAD ---
PROCEDURE: Radiographs of the Lumbar Spine. HISTORY: back pain s/p trauma COMPARISON: No prior. FINDINGS: BONES: Lumbar curvature is straightened if not slightly reversed. Multilevel spondylosis appears moderate in severity. No spondylolisthesis. No destructive bony change evident. Disc height loss is seen at L3-4 and at L4-5. DISC SPACES: As per above. OTHER FINDINGS: Incidental note is made of an inferior vena cava filter and prominent gaseous distention of large bowel loops throughout the abdomen with prominent retained fecal material also evident. IMPRESSION: Straightened if not reversed curvature of the lumbar spine with multilevel advanced spondylosis appreciated. No fracture or spondylolisthesis identified this time. MRI or CT may be useful clinically warranted for follow-up. Incidental findings as discussed above.
[2017-01-20 14:00] VITALS: BP 135/78; PULSE 78; RESP 17; TEMP 97.6
== END 2017-01-20 14:36 | disposition home or self-care (01) ==
LOC: ED 10:31
DX: M54.9 Dorsalgia, unspecified (principal); F17.210 Nicotine dependence, cigarettes, uncomplicated; Z79.01 Long term (current) use of anticoagulants

== ENCOUNTER 2017-01-27 13:33 | Inpatient (IN) | payer OTHER ==
[2017-01-27 13:34] VITALS: BMI 28.7
[2017-01-27] MEDS ORDERED: Vancomycin 1gm in NS 250ml 1 GM/250 ML BAG IVPB STA (14:25)
[2017-01-27] MEDS ORDERED: Cefepime IV 2 gm in NS 2 GM/100 ML BAG IVPB STA (14:25)
[2017-01-27 14:49] LABS: BASO # 0.03 K/mm3 (0.0-2.0); BASO % 0.3 % (0.0-3.0); EOS # 0.1 (0.0-0.7); EOS % 0.9 % (1.5-5.0); GRAN # 7.35 (1.4-6.5); GRAN % 76.3 % (50.0-68.0); HEMATOCRIT 36.6 % (42.0-52.0); LYMPH # 1.5 (1.2-3.4); LYMPH % 15.5 % (22.0-35.0); MEAN CELL VOLUME 83.4 fl (80.0-105.0); MEAN CORPUSCULAR HEMOGLOBIN 27.6 pg (25.0-35.0); MEAN CORPUSCULAR HGB CONC 33.1 g/dl (31.0-37.0); MEAN PLATELET VOLUME 11.5 fl (7.0-11.0); MONO # 0.7 (0.1-0.6); RED CELL DISTRIBUTION WIDTH 14.8 % (11.5-14.5); WHITE BLOOD COUNT 9.7 10^3/ul (4.5-11.0)
[2017-01-27 15:03] LABS: INR 1.78 (0.93-1.08); PARTIAL THROMBOPLASTIN TIME 35.7 Seconds (25.1-36.5)
--- NOTE | 2017-01-27 15:38 | RAD ---
HISTORY: Sepsis Patient COMPARISON: 01/15/2017 FINDINGS: LUNGS: No active pulmonary disease. PLEURA: No significant pleural effusion identified, no pneumothorax apparent. CARDIOVASCULAR: Normal. OSSEOUS STRUCTURES: No significant abnormalities. VISUALIZED UPPER ABDOMEN: Normal. OTHER FINDINGS: None. IMPRESSION: No active disease.
[2017-01-27 16:12] LABS: ALB/GLOB RATIO 0.9 (1.1-1.8); ALKALINE PHOSPHATASE 83 U/L (38-126); ALT/SGPT 30 U/L (7-56); AST/SGOT 62 U/L (17-59); BILIRUBIN,TOTAL 0.5 mg/dL (0.2-1.3); BLOOD UREA NITROGEN 15 mg/dL (7-21); CALCIUM 9.5 mg/dL (8.4-10.5); CARBON DIOXIDE 27 mmol/L (21-33); CHLORIDE 104 mmol/L (98-107); GFR AFRICAN-AMERICAN > 60; GLUCOSE,RANDOM 132 mg/dL (70-110); MAGNESIUM 1.7 mg/dL (1.7-2.2); PHOSPHOROUS 3.5 mg/dL (2.5-4.5); POTASSIUM 3.9 mmol/L (3.6-5.0); SODIUM 140 mmol/L (132-148); TOTAL PROTEIN 7.9 g/dL (5.8-8.3)
--- NOTE | 2017-01-27 16:23 | CP.PCM.HP ---
Past Patient History - Infectious Disease Hx of Infectious Diseases: None - Past Social History Smoking Status: Heavy Smoker > 10 Cigarettes Daily - CARDIAC Hx Cardiac Disorders: No - PULMONARY Hx Respiratory Disorders: No - NEUROLOGICAL Hx Paralysis: Yes Other/Comment: paraplegic - HEENT Hx HEENT Problems: No - RENAL Hx Chronic Kidney Disease: No - ENDOCRINE/METABOLIC Hx Endocrine Disorders: No - HEMATOLOGICAL/ONCOLOGICAL Hx Blood Disorders: Yes Hx Blood Transfusions: Yes Hx Blood Transfusion Reaction: No - INTEGUMENTARY Hx Dermatological Problems: No - MUSCULOSKELETAL/RHEUMATOLOGICAL Hx Musculoskeletal Disorders: Yes Hx Falls: No Other/Comment: paraplegic - GASTROINTESTINAL Hx Gastrointestinal Disorders: No - GENITOURINARY/GYNECOLOGICAL Hx Genitourinary Disorders: Yes Hx Incontinence: Yes Other/Comment: has haque bag and diaper - PSYCHIATRIC Hx Psychophysiologic Disorder: No Hx Substance Use: No - SURGICAL HISTORY Hx Surgeries: Yes Other/Comment: abcess surgery june 2015 - ANESTHESIA Hx Anesthesia: Yes Hx Anesthesia Reactions: No Hx Malignant Hyperthermia: No Meds Allergies/Adverse Reactions: Allergies Allergy/AdvReac Type Severity Reaction Status Date / Time ceftriaxone [From Rocephin] Allergy RASH Verified 01/27/17 13:43 Cephalosporins Allergy RASH Verified 01/27/17 13:48 Results - Vital Signs Recent Vital Signs: Last Vital Signs Temp 98.2 F 01/27/17 13:43 Pulse 79 01/27/17 15:21 Resp 18 01/27/17 15:21 BP 138/71 01/27/17 15:21 Pulse Ox 98 01/27/17 15:21 - Labs Result Diagrams: 01/27/17 14:30 01/27/17 15:48 Labs: Laboratory Results - last 24 hr 01/27/17 01/27/17 01/27/17 14:30 14:30 15:48 WBC 9.7 D RBC 4.39 Hgb 12.1 L Hct 36.6 L MCV 83.4 MCH 27.6 MCHC 33.1 RDW 14.8 H Plt Count 333 MPV 11.5 H Gran % 76.3 H Lymph % (Auto) 15.5 L [place] % (Auto) 7.0 H Eos % (Auto) 0.9 L Baso % (Auto) 0.3 Gran # 7.35 H Lymph # 1.5 [place] # 0.7 H Eos # 0.1 Baso # 0.03 ESR 110 H PT 19.6 H INR 1.78 H APTT 35.7 Sodium 140 Potassium 3.9 Chloride 104 Carbon Dioxide 27 Anion Gap 13 BUN 15 Creatinine 0.7 L Est GFR ( Amer) > 60 Est GFR (Non-Af Amer) > 60 Random Glucose 132 H Calcium 9.5 Phosphorus 3.5 Magnesium 1.7 Total Bilirubin 0.5 AST 62 H ALT 30 Alkaline Phosphatase 83 Total Protein 7.9 Albumin 3.7 Globulin 4.1 Albumin/Globulin Ratio 0.9 L
--- NOTE | 2017-01-27 16:30 | ED PDOC ---
Arrival/HPI - General Chief Complaint: Abnormal Skin Integrity Time Seen by Provider: 01/27/17 13:56 - History of Present Illness Narrative History of Present Illness (Text): 51yo quadriplegic with history of back pain, epidural abscess and surgical laminectomy presents sent in from the wound treatment center for evaluation of chronic left calcaneal ulcer , pt reports increasing foul smell/increasing fibrinopurulent exudate/ increasing calor to lle x several day, but [id number] systemic symptoms nor any politeal fossa fullness/calf pain. 01/27/17 16:28 01/27/17 16:36 Past Medical History - Provider Review Nursing Documentation Reviewed: Yes - Infectious Disease Hx of Infectious Diseases: None - Cardiac Hx Cardiac Disorders: No - Pulmonary Hx Respiratory Disorders: No - Neurological Hx Paralysis: Yes Other/Comment: paraplegic - HEENT Hx HEENT Disorder: No - Renal Hx Renal Disorder: No - Endocrine/Metabolic Hx Endocrine Disorders: No - Hematological/Oncological Hx Blood Disorders: Yes Hx Blood Transfusions: Yes Hx Blood Transfusion Reaction: No - Integumentary Hx Dermatological Disorder: No - Musculoskeletal/Rheumatological Hx Musculoskeletal Disorders: Yes Hx Falls: No Other/Comment: paraplegic - Gastrointestinal Hx Gastrointestinal Disorders: No - Genitourinary/Gynecological Hx Genitourinary Disorders: Yes Hx Incontinence: Yes Other/Comment: has haque bag and diaper - Psychiatric Hx Psychophysiologic Disorder: No Hx Substance Use: No - Surgical History Other/Comment: abcess surgery june 2015 - Anesthesia Hx Anesthesia: Yes Hx Anesthesia Reactions: No Hx Malignant Hyperthermia: No Family/Social History - Physician Review Nursing Documentation Reviewed: Yes Family/Social History: No Known Family HX Smoking Status: Heavy Smoker > 10 Cigarettes Daily Hx Alcohol Use: Yes (one beer daily) Hx Substance Use: No Allergies/Home Meds Allergies/Adverse Reactions: Allergies ceftriaxone [From Rocephin] Allergy (Verified 01/27/17 13:43) RASH Cephalosporins Allergy (Verified 01/27/17 13:48) RASH Home Medications: Home Meds Medication Instructions Recorded Confirmed Gabapentin [Neurontin] 300 mg PO TID 01/20/17 01/27/17 Warfarin [Coumadin] 4 mg PO 1800 01/20/17 01/27/17 Review of Systems - Physician Review All systems were reviewed & negative as marked: Yes - Review of Systems Systems not reviewed;Unavailable: Acuity of Condition Constitutional: Normal Eyes: Normal ENT: Normal Respiratory: Normal Cardiovascular: Normal Gastrointestinal: Normal Genitourinary Male: Normal Musculoskeletal: Normal Skin: Normal Neurological: Normal Endocrine: Normal Hemo/Lymphatic: Normal Psychiatric: Normal Physical Exam Vital Signs Reviewed: Yes Vital Signs Temp Pulse Resp BP Pulse Ox 01/27/17 15:21 79 18 138/71 98 01/27/17 13:43 98.2 F 85 18 142/74 98 Temperature: Afebrile Blood Pressure: Normal Pulse: Regular Respiratory Rate: Normal Appearance: Positive for: Well-Appearing, Non-Toxic, Comfortable Pain Distress: None Mental Status: Positive for: Alert and Oriented X 3 - Systems Exam Head: Present: Atraumatic, Normocephalic Pupils: Present: PERRL Extroacular Muscles: Present: EOMI Conjunctiva: Present: Normal Mouth: Present: Moist Mucous Membranes Neck: Present: Normal Range of Motion Respiratory/Chest: Present: Clear to Auscultation, Good Air Exchange. No: Respiratory Distress, Accessory Muscle Use Cardiovascular: Present: Regular Rate and Rhythm, Normal S1, S2. No: Murmurs Abdomen: Present: Normal Bowel Sounds. No: Tenderness, Distention, Peritoneal Signs Back: Present: Normal Inspection Upper Extremity: Present: Normal Inspection. No: Cyanosis, Edema Lower Extremity: Present: Normal Inspection, Other (left calcaneal ulcer, minimal fibirnoprulent exudate overlying, >3 cm area of erythema, relative calor to lle ). No: Edema Neurological: Present: GCS=15, CN II-XII Intact, Speech Normal, Motor Func Grossly Intact, Normal Sensory Function, Normal Cerebellar Funct, Norm Deep Tendon Reflexes, Gait Normal, Memory Normal, Normal 2Pt Descrimination Skin: Present: Warm, Dry, Normal Color. No: Rashes Psychiatric: Present: Alert, Oriented x 3, Normal Insight, Normal Concentration Medical Decision Making - Lab Interpretations Lab Results: 01/27/17 14:30 01/27/17 15:48 Lab Results 01/27/17 15:48: Sodium 140, Potassium 3.9, Chloride 104, Carbon Dioxide 27, Anion Gap 13, BUN 15, Creatinine 0.7 L, Est GFR ( Amer) > 60, Est GFR ( Non-Af Amer) > 60, Random Glucose 132 H, Calcium 9.5, Phosphorus 3.5, Magnesium 1.7, Total Bilirubin 0.5, AST 62 H, ALT 30, Alkaline Phosphatase 83, Total Protein 7.9, Albumin 3.7, Globulin 4.1, Albumin/Globulin Ratio 0.9 L 01/27/17 14:30: PT 19.6 H, INR 1.78 H, APTT 35.7 01/27/17 14:30: WBC 9.7 D, RBC 4.39, Hgb 12.1 L, Hct 36.6 L, MCV 83.4, MCH 27.6 , MCHC 33.1, RDW 14.8 H, Plt Count 333, MPV 11.5 H, Gran % 76.3 H, Lymph % (Auto ) 15.5 L, [place] % (Auto) 7.0 H, Eos % (Auto) 0.9 L, Baso % (Auto) 0.3, Gran # 7.35 H, Lymph # 1.5, [place] # 0.7 H, Eos # 0.1, Baso # 0.03, ESR 110 H - RAD Interpretation Radiology Orders: 01/27/17 14:21 CHEST PORTABLE [RAD] Stat 01/27/17 14:50 HEEL LEFT [RAD] Stat - Medication Orders Current Medication Orders: Baclofen (Lioresal) 20 mg PO TID DONAL Gabapentin (Neurontin) 300 mg PO TID DONAL PRN Reason: Protocol Meropenem 500 mg/ Sodium (Chloride) 100 mls @ 100 mls/hr IVPB Q8 DONAL PRN Reason: Protocol Stop: 01/27/17 22:59 Vancomycin HCl (Vancomycin 1gm) 1 gm in 250 mls @ 167 mls/hr IVPB Q12H DONAL PRN Reason: Protocol Pantoprazole Sodium (Protonix Ec Tab) 40 mg PO ACB DONAL Warfarin Sodium (Coumadin) 4 mg PO 0800 DONAL PRN Reason: Protocol Discontinued Medications Baclofen (Lioresal) 20 mg PO ONCE ONE Stop: 01/27/17 14:25 Sodium Chloride 1,000 ml/ IV (SUPPLIES) 1,000 mls @ 6,259.56 mls/hr IV ONCE ONE PRN Reason: 60 ML/KG/HR Stop: 01/27/17 14:21 Last Admin: 01/27/17 14:20 Dose: 6,259.56 mls/hr eMAR Start Stop Document 01/27/17 14:20 GMD (Rec: 01/27/17 15:28 GMD [id number]) Intravenous Solution Start Date 01/27/17 Start Time 14:20 End Date 01/27/17 End time 14:30 Total Infusion Time 10 Vancomycin HCl (Vancomycin 1gm) 1 gm in 250 mls @ 167 mls/hr IVPB STAT STA PRN Reason: Protocol Stop: 01/27/17 15:54 Last Admin: 01/27/17 15:28 Dose: 167 mls/hr eMAR Start Stop Document 01/27/17 15:28 GMD (Rec: 01/27/17 15:29 GMD [id number]) Intravenous Solution Start Date 01/27/17 Start Time 15:29 End Date 01/27/17 End time 16:59 Total Infusion Time 90 Vancomycin HCl (Vancomycin 1gm) 1 gm in 250 mls @ 167 mls/hr IVPB DAILY DONAL PRN Reason: Protocol Disposition/Present on Arrival - Present on Arrival Any Indicators Present on Arrival: Yes History of DVT/PE: No History of Uncontrolled Diabetes: No Urinary Catheter: Yes History of Decub. Ulcer: No History Surgical Site Infection Following: None - Disposition Have Diagnosis and Disposition been Completed?: Yes Diagnosis: Cellulitis and abscess of foot Disposition: HOSPITALIZED Disposition Time: 16:40 Patient Plan: Admission Condition: FAIR Discharge Instructions (ExitCare): Cellulitis (ED) Referrals: PCP,NO [Primary Care Provider] - Follow up with primary Forms: [employer] ([place])
--- NOTE | 2017-01-27 16:33 | RAD ---
PROCEDURE: Radiographs of the left calcaneus/hindfoot. HISTORY: r/o periosteal cuffing COMPARISON: None available. TECHNIQUE: Frontal and lateral radiographs of the calcaneus. FINDINGS: No fracture or joint dislocation. No focal lesion. No calcaneal spur. Degenerative changes seen at the tibiotalar as well as subtalar joint manifest might cortical sclerosis and minimal osteophyte development. IMPRESSION: Unremarkable radiographs of the left calcaneus. Degenerative changes are seen the hindfoot as discussed above.
--- NOTE | 2017-01-27 16:56 | CP.PCM.HP ---
<Mekhi Simental - Last Filed: 01/27/17 16:56> History of Present Illness - History of Present Illness History of Present Illness: 51 year old male parapledgic with past medical history of spinal abcess, laminectomy, DVT presents to the ED form wound care due to possible heel infection of the left foot. Patient said he has been coming to the hospital for wound care, and today they told him to come straight to the ED because he may have a worsening infection on his left heel. Patient denied any trauma, but does not have much sensation in his lower extremities so he cannot feel for any pain. He states that his sister had recently told him that there was a foul smell coming from his foot but patient did not think it was serious. He dnies any fever, chills, chest pain, nausea, vomiting, shortness of breath or any other complaints at this time. Primary Medical Doctor: Dr. Ishan Dominguez Past Medical History: paraplegic, spinal abcess, laminectomy, DVT, HTN (resolved ) Past Surgical History: laminectomy in July 2016 Allergies: ceftriaxone, cephalosporins Family Hx: non contributory Social: states he has stopped alcohol and tobacco use for the past 6 months, denies any illicit drug use Medications: Baclofen, Neurontin 300, Coumadin 4mg Present on Admission - Present on Admission Any Indicators Present on Admission: Yes History of DVT/PE: Yes Review of Systems - Constitutional Constitutional: absent: Chills, Fever, Headache, Night Sweats - EENT Eyes: absent: Blind Spots, Blurred Vision Ears: absent: Decreased Hearing, Disequilibrium Nose/Mouth/Throat: absent: Nasal Congestion, Nasal Trauma, Lip Swelling, Sore Throat - Cardiovascular Cardiovascular: absent: Chest Pain, Diaphoresis, Dyspnea, Palpitations, Syncope - Respiratory Respiratory: absent: Cough, Dyspnea, Wheezing, Chest Congestion - Gastrointestinal Gastrointestinal: Abdominal Pain. absent: Constipation, Diarrhea, Nausea, Vomiting - Genitourinary Genitourinary: absent: Change in Urinary Stream, Difficulty Urinating - Integumentary Integumentary: Sores. absent: Rash Additional comments: heel sore on left foot - Neurological Neurological: Abnormal Gait, Focal Weakness, Tingling. absent: Dizziness, Numbness, Headaches Additional comments: decreased sensation and strength on lower extremeties Past Patient History - Infectious Disease Hx of Infectious Diseases: None - Past Social History Smoking Status: Heavy Smoker > 10 Cigarettes Daily - CARDIAC Hx Cardiac Disorders: No - PULMONARY Hx Respiratory Disorders: No - NEUROLOGICAL Hx Paralysis: Yes Other/Comment: paraplegic - HEENT Hx HEENT Problems: No - RENAL Hx Chronic Kidney Disease: No - ENDOCRINE/METABOLIC Hx Endocrine Disorders: No - HEMATOLOGICAL/ONCOLOGICAL Hx Blood Disorders: Yes Hx Blood Transfusions: Yes Hx Blood Transfusion Reaction: No - INTEGUMENTARY Hx Dermatological Problems: No - MUSCULOSKELETAL/RHEUMATOLOGICAL Hx Musculoskeletal Disorders: Yes Hx Falls: No Other/Comment: paraplegic - GASTROINTESTINAL Hx Gastrointestinal Disorders: No - GENITOURINARY/GYNECOLOGICAL Hx Genitourinary Disorders: Yes Hx Incontinence: Yes Other/Comment: has haque bag and diaper - PSYCHIATRIC Hx Psychophysiologic Disorder: No Hx Substance Use: No - SURGICAL HISTORY Other/Comment: abcess surgery june 2015 - ANESTHESIA Hx Anesthesia: Yes Hx Anesthesia Reactions: No Hx Malignant Hyperthermia: No Meds Allergies/Adverse Reactions: Allergies Allergy/AdvReac Type Severity Reaction Status Date / Time ceftriaxone [From Rocephin] Allergy RASH Verified 01/27/17 13:43 Cephalosporins Allergy RASH Verified 01/27/17 13:48 Physical Exam - Constitutional Appears: Non-toxic, No Acute Distress - Head Exam Head Exam: ATRAUMATIC, NORMAL INSPECTION, NORMOCEPHALIC - Eye Exam Eye Exam: EOMI, Normal appearance, PERRL Pupil Exam: NORMAL ACCOMODATION, PERRL - ENT Exam ENT Exam: Normal Exam - Neck Exam Neck exam: Positive for: Normal Inspection - Respiratory Exam Respiratory Exam: Clear to Auscultation Bilateral, NORMAL BREATHING PATTERN - Cardiovascular Exam Cardiovascular Exam: REGULAR RHYTHM, +S1, +S2 - GI/Abdominal Exam GI & Abdominal Exam: Normal Bowel Sounds, Soft - Extremities Exam Extremities exam: Positive for: pedal pulses present Additional comments: wound on left heal, wrapped in bandage and heel support boot decreased motor strength and sensation in lower extremeities bilaterally - Neurological Exam Neurological exam: Alert, Oriented x3 - Psychiatric Exam Psychiatric exam: Normal Mood - Skin Skin Exam: Normal Color, Warm - Additional Findings Additional findings: Indwelling Haque Catheter Results - Vital Signs Recent Vital Signs: Last Vital Signs Temp 98.2 F 01/27/17 13:43 Pulse 79 01/27/17 15:21 Resp 18 01/27/17 15:21 BP 138/71 01/27/17 15:21 Pulse Ox 98 01/27/17 15:21 - Labs Result Diagrams: 01/27/17 14:30 01/27/17 15:48 Assessment & Plan - Assessment and Plan (Free Text) Assessment: 51 year old male parapledgic with past medical history of spinal abcess, laminectomy, DVT presents to the ED form wound care due to possible heel infection of the left foot. Patient admitted for evaluation of wound and to rule out osteomyelitis Plan: 1. Left heel infection- Rule out Osteomyelitis -EKG ordered and obtained -Blood and wound cultures ordered -Patient afebrile, no leukocytosis -started on vancomycin and meropenem, will f/u with ID -Xray of the left foot ordered, pending -CRP pending -lactic acid pending -ID consulted, Berna, will follow recs -Podiatry consulted -Wound care assesment ordered -Physical Therapy evaluation ordered 2. Paraplegia- chronic -continue home Baclofen -PT evaluation ordered -continue home neurontin -using a haque for incontinence , will change if necessary 3. History of DVT -INR 1.78 -continue home warfarin 4mg -will continue to trend INR 4. GI/DVT Psrophylaxis -sequential compression devices -Protonix home continued <Tobin Piedra - Last Filed: 01/28/17 13:55> Results - Vital Signs Recent Vital Signs: Last Vital Signs Temp 98.7 F 01/27/17 20:56 Pulse 83 01/27/17 20:56 Resp 20 01/27/17 20:56 BP 132/83 01/27/17 20:56 Pulse Ox 96 01/27/17 18:26 - Labs Result Diagrams: 01/28/17 06:15 01/28/17 06:15 Labs: Laboratory Results - last 24 hr 01/27/17 01/28/17 01/28/17 18:25 06:00 06:15 WBC RBC Hgb Hct MCV MCH MCHC RDW Plt Count MPV ESR PT INR Sodium Potassium Chloride Carbon Dioxide Anion Gap BUN Creatinine Est GFR ( Amer) Est GFR (Non-Af Amer) Random Glucose Lactic Acid 1.2 Calcium C-React Prot High Sens > 15.00 H Urine Color Yellow Urine Appearance Sl cloudy Urine pH 6.0 Ur Specific [place] 1.025 Urine Protein Negative Urine Glucose (UA) Negative Urine Ketones Negative Urine Blood Moderate H Urine Nitrate Negative Urine Bilirubin Negative Urine Urobilinogen 0.2 Ur Leukocyte Esterase Moderate H Urine RBC 2 - 5 Urine WBC Tntc Ur Epithelial Cells 0 - 2 Urine Bacteria Mod 01/28/17 01/28/17 01/28/17 06:15 06:15 06:15 WBC 10.0 RBC 3.89 Hgb 10.3 L Hct 32.8 L MCV 84.3 MCH 26.5 MCHC 31.4 RDW 15.2 H Plt Count 266 MPV 11.5 H ESR 131 H PT 21.2 H INR 1.90 H Sodium 140 Potassium 4.4 Chloride 103 Carbon Dioxide 28 Anion Gap 13 BUN 14 Creatinine 0.8 Est GFR ( Amer) > 60 Est GFR (Non-Af Amer) > 60 Random Glucose 109 Lactic Acid Calcium 9.5 C-React Prot High Sens Urine Color Urine Appearance Urine pH Ur Specific [place] Urine Protein Urine Glucose (UA) Urine Ketones Urine Blood Urine Nitrate Urine Bilirubin Urine Urobilinogen Ur Leukocyte Esterase Urine RBC Urine WBC Ur Epithelial Cells Urine Bacteria Attending/Attestation - Attestation I have personally seen and examined this patient.: Yes I have fully participated in the care of the patient.: Yes I have reviewed all pertinent clinical information: Yes Notes (Text): 01/28/17 13:51 Attending note; Patient seen and examined with resident in ER. Patient is a 51 year old malewith past medical history of spinal abcess, laminectomy, paraplegia,DVT presents to the ED form wound care due to possible heel infection of the left foot. Wound culture ordered. Started on vancomycin and meropenem. Podiatry evaluation requested. X-ray is negative for osteomyelitis. MRI ordered. Patient is bedridden; sacral decubitus. Surgery evaluation requested for possible debridement. History of DVT; continue Coumadin. Monitor INR. Chronic indwelling Haque; Haque catheter will be changed today. PT evaluation requested. Upon discharge the patient will follow-up with PMD .
[2017-01-27] MEDS: Vancomycin 1gm in NS 250ml 1 GM/250 ML BAG IVPB SCH (17:34)
[2017-01-27] MEDS: Pantoprazole 40 mg EC Tab PO SCH (17:44)
[2017-01-27] MEDS: Meropenem 500 MG in Sodium Chloride 0.9% 100 ML IVPB SCH ×2 (18:21→23:59)
--- NOTE | 2017-01-27 21:21 | CP.PCM.CON ---
History of Present Illness - History of Present Illness History of Present Illness: General Surgery Consult Note for Dr. Askew Reason for Consult: Sacral decubitus ulcer 51 M with past medical history of parapledgia, spinal abcess, laminectomy, DVT, HTN was sent to ED from wound care for suspected osteomyelitis of left foot. Patient also has a sacral decubitus ulcer. Patient states that he has been seeing Dr. Jalloh and Dr. Askew in the wound care clinic for several months. Patient has spinal abscess drained earlier this year which eventually caused him to be paraplegic. As a result, he developed pressure ulcer on sacrum and heel. Patient also reports that there is foul smell coming from his wounds. Patient is worried because he is suppose to get a colostomy at [facility] on Feb 05 because he is incontinent. Patient denies feeling any pain from waist down. he cannot feel either wound. Denies any fever/chills, chest pain, SOB, nausea/vomiting, constipation, incontinence. Primary Medical Doctor: Dr. Ishan Dominguez Past Medical History: paraplegic, spinal abcess, laminectomy, DVT, HTN Medications: Baclofen, Neurontin, Coumadin Allergy: ceftriaxone/cephalosporins Past Surgical History: laminectomy and spinal abscess drainage FH: Non-contributory Social:former smoker, has not had alcohol use for the past 6 months, denies any illicit drug use Review of Systems - Constitutional Constitutional: absent: Chills, Fever, Night Sweats, Snoring - EENT Eyes: absent: Blurred Vision, Discharge, Loss of Peripheral Vision Ears: absent: Ear Discharge, Disequilibrium, Dizziness Nose/Mouth/Throat: absent: Nasal Congestion, Change in Voice - Cardiovascular Cardiovascular: absent: Chest Pain, Chest Pain at Rest, Chest Pain with Activity , Dyspnea - Respiratory Respiratory: absent: Cough, Dyspnea on Exertion, Wheezing - Gastrointestinal Gastrointestinal: absent: Abdominal Pain, Constipation, Diarrhea, Dyspepsia, Dysphagia, Nausea, Vomiting - Genitourinary Genitourinary: absent: Change in Urinary Stream, Difficulty Urinating, Dysuria - Musculoskeletal Musculoskeletal: absent: Numbness, Tingling - Integumentary Integumentary: absent: Changing Lesions, New Lesions - Neurological Neurological: absent: Dizziness, Numbness, Syncope, Tingling, Tremor, Weakness - Psychiatric Psychiatric: absent: Anxiety, Depression, Homicidal Ideation, Suicidal Ideation - Endocrine Endocrine: absent: Fatigue, Palpitations, Polydipsia, Polyphagia, Polyuria - Hematologic/Lymphatic Hematologic: absent: Easy Bleeding, Easy Bruising, Lymphadenopathy Past Patient History - Infectious Disease Hx of Infectious Diseases: None - Past Social History Smoking Status: Former Smoker - CARDIAC Hx Cardiac Disorders: No - PULMONARY Hx Respiratory Disorders: No - NEUROLOGICAL Other/Comment: paraplegic - HEENT Hx HEENT Problems: No - RENAL Hx Chronic Kidney Disease: No - ENDOCRINE/METABOLIC Hx Endocrine Disorders: No - HEMATOLOGICAL/ONCOLOGICAL Hx Blood Disorders: Yes - INTEGUMENTARY Hx Dermatological Problems: No - MUSCULOSKELETAL/RHEUMATOLOGICAL Hx Musculoskeletal Disorders: Yes Hx Falls: No Other/Comment: paraplegic - GASTROINTESTINAL Hx Gastrointestinal Disorders: No - GENITOURINARY/GYNECOLOGICAL Hx Genitourinary Disorders: Yes Hx Incontinence: Yes Other/Comment: has haque bag and diaper - PSYCHIATRIC Hx Psychophysiologic Disorder: No Hx Substance Use: No - SURGICAL HISTORY Other/Comment: abcess surgery june 2015 - ANESTHESIA Hx Anesthesia: Yes Hx Anesthesia Reactions: No Hx Malignant Hyperthermia: No Meds Allergies/Adverse Reactions: Allergies Allergy/AdvReac Type Severity Reaction Status Date / Time ceftriaxone [From Rocephin] Allergy RASH Verified 01/27/17 13:43 Cephalosporins Allergy RASH Verified 01/27/17 13:48 - Medications Medications: Current Medications Baclofen (Lioresal) 20 mg PO TID DONAL Last Admin: 01/27/17 17:34 Dose: Not Given Gabapentin (Neurontin) 300 mg PO TID DONAL PRN Reason: Protocol Last Admin: 01/27/17 17:28 Dose: 300 mg Meropenem 500 mg/ Sodium (Chloride) 100 mls @ 100 mls/hr IVPB Q8 DONAL PRN Reason: Protocol Stop: 02/03/17 16:16 Last Admin: 01/27/17 18:21 Dose: 100 mls/hr Vancomycin HCl (Vancomycin 1gm) 1 gm in 250 mls @ 167 mls/hr IVPB Q12H DONAL PRN Reason: Protocol Last Admin: 01/27/17 17:34 Dose: Not Given Pantoprazole Sodium (Protonix Ec Tab) 40 mg PO ACB DONAL Last Admin: 01/27/17 17:44 Dose: 40 mg Warfarin Sodium (Coumadin) 4 mg PO 0800 DONAL PRN Reason: Protocol Physical Exam - Constitutional Appears: No Acute Distress - Head Exam Head Exam: ATRAUMATIC, NORMOCEPHALIC - Eye Exam Eye Exam: EOMI, Normal appearance Pupil Exam: PERRL - ENT Exam ENT Exam: Mucous Membranes Moist - Respiratory Exam Respiratory Exam: NORMAL BREATHING PATTERN - Cardiovascular Exam Cardiovascular Exam: REGULAR RHYTHM - GI/Abdominal Exam GI & Abdominal Exam: Soft. absent: Distended, Firm, Guarding, Rebound, Tenderness - Extremities Exam Additional comments: unable to move lower extremities left heel ulcer - Back Exam Back exam: absent: CVA tenderness (L), CVA tenderness (R) Additional comments: 5 cm x 4 cm sacral decubitus ulcer - some necrotic tissue, deep - Neurological Exam Neurological exam: Alert, CN II-XII Intact, Oriented x3 - Psychiatric Exam Psychiatric exam: Normal Affect, Normal Mood - Skin Skin Exam: Dry, Warm Results - Vital Signs Recent Vital Signs: Last Vital Signs Temp 98.7 F 01/27/17 20:56 Pulse 83 01/27/17 20:56 Resp 20 01/27/17 20:56 BP 132/83 01/27/17 20:56 Pulse Ox 96 01/27/17 18:26 - Labs Result Diagrams: 01/27/17 14:30 01/27/17 15:48 Labs: Laboratory Results - last 24 hr 01/27/17 18:25 Lactic Acid 1.2 Assessment & Plan - Assessment and Plan (Free Text) Plan: 51 M with left heel wound and Stage IV sacral decubitus ulcer -f/u MRI Left lower extremity -IV antibiotics -Possible debridement of sacral ulcer -f/u Podiatry recommendations -Will Discuss with Dr. Azar Smith PGY1
--- NOTE | 2017-01-27 22:06 | CARD ---
APPROVED REPORT EKG Measurement Heart [id number] CT 160P29 [id number] <Conclusion> Sinus rhythm with premature atrial complexes Nonspecific ST and T wave abnormality Prolonged QT Abnormal ECG
[2017-01-28] MEDS: Vancomycin 1gm in NS 250ml 1 GM/250 ML BAG IVPB SCH ×2 (04:59→17:05)
[2017-01-28 07:00] LABS: URINE BILIRUBIN NEGATIVE (NEGATIVE); URINE BLOOD MODERATE (NEGATIVE); URINE GLUCOSE (UA) NEGATIVE (NEGATIVE); URINE KETONE NEGATIVE (NEGATIVE); URINE LEUKOCYTE ESTERASE MODERATE Leu/uL (NEGATIVE); URINE PROTEIN NEGATIVE mg/dL (<30 mg/dL); URINE UROBILINOGEN 0.2 E.U./dL (<1 E.U./dL)
[2017-01-28 07:05] LABS: URINE COLOR YELLOW (YELLOW)
[2017-01-28 07:06] LABS: URINE APPEARANCE SL CLOUDY (CLEAR)
[2017-01-28 07:11] LABS: INR 1.9 (0.93-1.08)
[2017-01-28 07:12] LABS: HEMATOCRIT 32.8 % (42.0-52.0); MEAN CELL VOLUME 84.3 fl (80.0-105.0); MEAN CORPUSCULAR HEMOGLOBIN 26.5 pg (25.0-35.0); MEAN CORPUSCULAR HGB CONC 31.4 g/dl (31.0-37.0); MEAN PLATELET VOLUME 11.5 fl (7.0-11.0); RED CELL DISTRIBUTION WIDTH 15.2 % (11.5-14.5)
[2017-01-28 07:15] LABS: URINE WBC TNTC /hpf (0-6)
[2017-01-28 07:16] LABS: BLOOD UREA NITROGEN 14 mg/dL (7-21); CALCIUM 9.5 mg/dL (8.4-10.5); CARBON DIOXIDE 28 mmol/L (21-33); CHLORIDE 103 mmol/L (98-107); GFR AFRICAN-AMERICAN > 60; GLUCOSE,RANDOM 109 mg/dL (70-110); POTASSIUM 4.4 mmol/L (3.6-5.0); SODIUM 140 mmol/L (132-148)
[2017-01-28 07:16] LABS: URINE BACTERIA MOD (NEG); URINE EPITHELIAL CELLS 0 - 2 /hpf (0-5)
[2017-01-28] MEDS: Pantoprazole 40 mg EC Tab PO SCH (08:01)
[2017-01-28] MEDS: Meropenem 500 MG in Sodium Chloride 0.9% 100 ML IVPB SCH (08:01)
[2017-01-28] MEDS ORDERED: Vancomycin 1gm in NS 250ml 1 GM/250 ML BAG IVPB SCH (10:00)
--- NOTE | 2017-01-28 11:56 | CP.PCM.PN ---
<Mekhi Simental - Last Filed: 01/28/17 13:19> Subjective - Date & Time of Evaluation Date of Evaluation: 01/28/17 Time of Evaluation: 06:00 - Subjective Subjective: Patient was seen and evaluated bedside. Patient was in good spirits. Patient did not have any acute events overnight. He was aware of his lab work and the current plan. He denies fever, chills, chest pain, nausea, vomiting, or any other complaints. Objective - Vital Signs/Intake and Output Vital Signs (last 24 hours): Temp Pulse Resp BP Pulse Ox 98.7 F 83 20 132/83 96 01/27/17 20:56 01/27/17 20:56 01/27/17 20:56 01/27/17 20:56 01/27/17 18:26 Intake and Output: 01/28/17 01/28/17 06:59 18:59 Intake Total 600 Output Total 600 Balance 0 - Medications Medications: Current Medications Baclofen (Lioresal) 20 mg PO TID [facility] Last Admin: 01/28/17 09:19 Dose: 20 mg Gabapentin (Neurontin) 300 mg PO TID DONAL PRN Reason: Protocol Last Admin: 01/28/17 09:19 Dose: 300 mg Meropenem 500 mg/ Sodium (Chloride) 100 mls @ 100 mls/hr IVPB Q8 DONAL PRN Reason: Protocol Stop: 02/03/17 16:16 Last Admin: 01/28/17 08:01 Dose: 100 mls/hr Vancomycin HCl (Vancomycin 1gm) 1 gm in 250 mls @ 167 mls/hr IVPB Q12H DONAL PRN Reason: Protocol Last Admin: 01/28/17 04:59 Dose: 167 mls/hr Pantoprazole Sodium (Protonix Ec Tab) 40 mg PO ACB [facility] Last Admin: 01/28/17 08:01 Dose: 40 mg Warfarin Sodium (Coumadin) 4 mg PO 0800 DONAL PRN Reason: Protocol Last Admin: 01/28/17 08:01 Dose: 4 mg - Labs Labs: 01/28/17 06:15 01/28/17 06:15 PT 21.2 SECONDS (9.4-12.5) H 01/28/17 06:15 INR 1.90 (0.93-1.08) H 01/28/17 06:15 APTT 35.7 Seconds (25.1-36.5) 01/27/17 14:30 - Constitutional Appears: Non-toxic, No Acute Distress - Head Exam Head Exam: ATRAUMATIC, NORMAL INSPECTION, NORMOCEPHALIC - Eye Exam Eye Exam: EOMI, Normal appearance, PERRL Pupil Exam: NORMAL ACCOMODATION, PERRL - ENT Exam ENT Exam: Mucous Membranes Moist, Normal Exam - Neck Exam Neck Exam: Normal Inspection. absent: Lymphadenopathy - Respiratory Exam Respiratory Exam: Clear to Ausculation Bilateral, NORMAL BREATHING PATTERN - Cardiovascular Exam Cardiovascular Exam: REGULAR RHYTHM, +S1, +S2 - GI/Abdominal Exam GI & Abdominal Exam: Soft, Normal Bowel Sounds. absent: Tenderness - Extremities Exam Additional comments: Decreased sensation and motor strength in lower extremeties bilaterally wound on left heel , and medial aspect of foot - Back Exam Additional comments: Stage 4 sacral decubitus ulcer - Neurological Exam Neurological Exam: Alert, Awake, Oriented x3 - Psychiatric Exam Psychiatric exam: Normal Affect Assessment and Plan - Assessment and Plan (Free Text) Assessment: 51 year old male parapledgic with past medical history of spinal abcess, laminectomy, DVT presents to the ED form wound care due to possible heel infection of the left foot. Patient admitted for evaluation of wound and to rule out osteomyelitis Plan: 1. Left heel infection- Rule out Osteomyelitis -EKG ordered and obtained -Blood and wound cultures ordered, pending -Patient afebrile, no leukocytosis -started on vancomycin and meropenem, will f/u with ID -Xray of the left foot: no focal lesion, degenerative chnages of tibiotalar and subtalar joints. Corticol sclerosis and osteophytes -MRI of left ankle: no evidence of osteomyelitis -CRP pending -ESR 110, will reorder -ID consulted, Boghossian -Podiatry consulted -Wound care assessment ordered -Physical Therapy evaluation ordered 2. Paraplegia- chronic -continue home Baclofen -PT evaluation ordered -continue home neurontin -using a haque for incontinence , haque was changed yesterday 3. History of DVT -INR 1.90 -continue home warfarin 4mg -will continue to trend INR 4. Sacral Decubitus Ulcer -stage 4 -surgery consulted, continue IV abx, possible debrediment, will follow up -wound care 5. GI/DVT Prophylaxis -sequential compression devices -Protonix home continued <Rangasamy,Ajantha - Last Filed: 01/28/17 14:00> Objective - Vital Signs/Intake and Output Vital Signs (last 24 hours): Temp Pulse Resp BP Pulse Ox 98.7 F 83 20 132/83 96 01/27/17 20:56 01/27/17 20:56 01/27/17 20:56 01/27/17 20:56 01/27/17 18:26 Intake and Output: 01/28/17 01/28/17 06:59 18:59 Intake Total 600 Output Total 600 Balance 0 - Medications Medications: Current Medications Baclofen (Lioresal) 20 mg PO TID DONAL Last Admin: 01/28/17 13:53 Dose: 20 mg Gabapentin (Neurontin) 300 mg PO TID DONAL PRN Reason: Protocol Last Admin: 01/28/17 13:53 Dose: 300 mg Vancomycin HCl (Vancomycin 1gm) 1 gm in 250 mls @ 167 mls/hr IVPB Q12H DONAL PRN Reason: Protocol Last Admin: 01/28/17 04:59 Dose: 167 mls/hr Meropenem 500 mg/ Sodium (Chloride) 50 mls @ 100 mls/hr IVPB Q8 DONAL PRN Reason: Protocol Stop: 02/03/17 16:16 Last Admin: 01/28/17 13:53 Dose: 100 mls/hr Pantoprazole Sodium (Protonix Ec Tab) 40 mg PO ACB DONAL Last Admin: 01/28/17 08:01 Dose: 40 mg Warfarin Sodium (Coumadin) 4 mg PO 0800 DONAL PRN Reason: Protocol Last Admin: 01/28/17 08:01 Dose: 4 mg - Labs Labs: 01/28/17 06:15 01/28/17 06:15 PT 21.2 SECONDS (9.4-12.5) H 01/28/17 06:15 INR 1.90 (0.93-1.08) H 01/28/17 06:15 APTT 35.7 Seconds (25.1-36.5) 01/27/17 14:30 Attending/Attestation - Attestation I have personally seen and examined this patient.: Yes I have fully participated in the care of the patient.: Yes I have reviewed all pertinent clinical information, including history, physical exam and plan: Yes Notes (Text): 01/28/17 13:56 Attending note; Patient seen and examined with resident. Patient is a 51 year old malewith past medical history of spinal abcess, laminectomy, paraplegia,DVT presents to the ED form wound care due to possible heel infection of the left foot. Wound culture, blood culture, urine culture is pending. Started on vancomycin and meropenem. ID evaluation requested. Podiatry evaluation appreciated. Case discussed with . MRI is negative for osteomyelitis. 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 [employer] will discuss treatment options with the patient. Patient is bedridden; sacral decubitus. Surgery evaluation appreciated .CT abdomen and pelvis ordered .for possible debridement. History of DVT; continue Coumadin. Chronic indwelling Haque; Haque catheter changed yesterday. PT evaluation requested. Upon discharge the patient will follow-up with PMD .
[2017-01-28] MEDS ORDERED: Barium Sulfate Susp 2.1% w/v, 2.0% w/w 450 mL Bottle PO ONE (12:27)
--- NOTE | 2017-01-28 12:52 | MRI ---
PROCEDURE: MRI of the left ankle without contrast HISTORY: left heel ulcer COMPARISON: TECHNIQUE: MRI of the left ankle was performed in multiple planes using multiple pulse sequences. FINDINGS: There is soft tissue edema in the plantar aspect of the heel. There is no associated marrow edema to suggest osteomyelitis. The Achilles tendon is unremarkable. There is mild thickening of the plantar fascia. IMPRESSION: No evidence of osteomyelitis.
[2017-01-28] MEDS: Meropenem 500 MG in Sodium Chloride 0.9% 50 ML IVPB SCH ×2 (13:53→22:46)
--- NOTE | 2017-01-28 14:28 | CP.PCM.CON ---
<ParkerXiomara - Last Filed: 01/28/17 16:08> History of Present Illness - History of Present Illness History of Present Illness: 51 y/o paraplegic male seen at bedside today with attending Dr. Jalloh for L heel ulcerations. Pt was sent to the ED yesterday by Dr. Jalloh after he presented to the wound center with an ulcer that probes down to bone. Pt states he is also being treated for a sacral wound but needs to be out of the hospital by Thursday so he can get stoma surgery done. Pt denies F/C/N/V/CP/SOB at this time. PMH: paraplegic, spinal abcess, laminectomy, DVT, HTN PSH: laminectomy in July 2016 ALL: ceftriaxone, cephalosporins Family Hx: non contributory Social: quit EtOH and cigarettes >6 mo ago, denies any illicit drug use Review of Systems - Review of Systems All systems: reviewed and no additional remarkable complaints except (per HPI) Past Patient History - Infectious Disease Hx of Infectious Diseases: None - Past Social History Smoking Status: Former Smoker - CARDIAC Hx Cardiac Disorders: No - PULMONARY Hx Respiratory Disorders: No - NEUROLOGICAL Other/Comment: paraplegic - HEENT Hx HEENT Problems: No - RENAL Hx Chronic Kidney Disease: No - ENDOCRINE/METABOLIC Hx Endocrine Disorders: No - HEMATOLOGICAL/ONCOLOGICAL Hx Blood Disorders: Yes - INTEGUMENTARY Hx Dermatological Problems: No - MUSCULOSKELETAL/RHEUMATOLOGICAL Hx Musculoskeletal Disorders: Yes Hx Falls: No Other/Comment: paraplegic - GASTROINTESTINAL Hx Gastrointestinal Disorders: No - GENITOURINARY/GYNECOLOGICAL Hx Genitourinary Disorders: Yes Hx Incontinence: Yes Other/Comment: has haque bag and diaper - PSYCHIATRIC Hx Psychophysiologic Disorder: No Hx Substance Use: No - SURGICAL HISTORY Other/Comment: abcess surgery june 2015 - ANESTHESIA Hx Anesthesia: Yes Hx Anesthesia Reactions: No Hx Malignant Hyperthermia: No Meds Allergies/Adverse Reactions: Allergies Allergy/AdvReac Type Severity Reaction Status Date / Time ceftriaxone [From Rocephin] Allergy RASH Verified 01/27/17 13:43 Cephalosporins Allergy RASH Verified 01/27/17 13:48 - Medications Medications: Current Medications Baclofen (Lioresal) 20 mg PO TID [facility] Last Admin: 01/28/17 13:53 Dose: 20 mg Gabapentin (Neurontin) 300 mg PO TID [facility] PRN Reason: Protocol Last Admin: 01/28/17 13:53 Dose: 300 mg Vancomycin HCl (Vancomycin 1gm) 1 gm in 250 mls @ 167 mls/hr IVPB Q12H [facility] PRN Reason: Protocol Last Admin: 01/28/17 04:59 Dose: 167 mls/hr Meropenem 500 mg/ Sodium (Chloride) 50 mls @ 100 mls/hr IVPB Q8 [facility] PRN Reason: Protocol Stop: 02/03/17 16:16 Last Admin: 01/28/17 13:53 Dose: 100 mls/hr Pantoprazole Sodium (Protonix Ec Tab) 40 mg PO ACB [facility] Last Admin: 01/28/17 08:01 Dose: 40 mg Warfarin Sodium (Coumadin) 4 mg PO 0800 [facility] PRN Reason: Protocol Last Admin: 01/28/17 08:01 Dose: 4 mg Physical Exam - Constitutional Appears: Well, Non-toxic, No Acute Distress - Extremities Exam Additional comments: LE focused examination: Vasc: DP/PT pulses palpable 2/4 B/L. Temperature gradient warm to cool on R, warm to warm on L. CFT < 3 sec to all digits. Mild non-pitting edema localized to L heel. Neuro: Protective sensation grossly diminished B/L Derm: L posteromedial heel exhibits circular 2.5cm diameter ulceration with fibrotic base that probes down to calcaneal bone and is boggy in nature. Kathy- wound area exhibits sloughed skin with mild erythema. Additional 1.5cm x 0.8cm x 0.1cm superficial ulceration noted to posterior heel with fibrotic base, no malodor, no fluctuance, no undermining, no probe to bone Ortho: Involuntary muscle spasms noted to B/L LE, L>R. No tenderness to palpation of L heel at site of wounds - Neurological Exam Neurological exam: Alert, Oriented x3 - Psychiatric Exam Psychiatric exam: Normal Affect, Normal Mood Results - Vital Signs Recent Vital Signs: Last Vital Signs Temp 98.7 F 01/27/17 20:56 Pulse 83 01/27/17 20:56 Resp 20 01/27/17 20:56 BP 132/83 01/27/17 20:56 Pulse Ox 96 01/27/17 18:26 - Labs Result Diagrams: 01/28/17 06:15 01/28/17 06:15 Labs: Laboratory Results - last 24 hr 01/27/17 01/28/17 01/28/17 18:25 06:00 06:15 WBC RBC Hgb Hct MCV MCH MCHC RDW Plt Count MPV ESR PT INR Sodium Potassium Chloride Carbon Dioxide Anion Gap BUN Creatinine Est GFR ( Amer) Est GFR (Non-Af Amer) Random Glucose Lactic Acid 1.2 Calcium C-React Prot High Sens > 15.00 H Urine Color Yellow Urine Appearance Sl cloudy Urine pH 6.0 Ur Specific [place] 1.025 Urine Protein Negative Urine Glucose (UA) Negative Urine Ketones Negative Urine Blood Moderate H Urine Nitrate Negative Urine Bilirubin Negative Urine Urobilinogen 0.2 Ur Leukocyte Esterase Moderate H Urine RBC 2 - 5 Urine WBC Tntc Ur Epithelial Cells 0 - 2 Urine Bacteria Mod 01/28/17 01/28/17 01/28/17 06:15 06:15 06:15 WBC 10.0 RBC 3.89 Hgb 10.3 L Hct 32.8 L MCV 84.3 MCH 26.5 MCHC 31.4 RDW 15.2 H Plt Count 266 MPV 11.5 H ESR 131 H PT 21.2 H INR 1.90 H Sodium 140 Potassium 4.4 Chloride 103 Carbon Dioxide 28 Anion Gap 13 BUN 14 Creatinine 0.8 Est GFR ( Amer) > 60 Est GFR (Non-Af Amer) > 60 Random Glucose 109 Lactic Acid Calcium 9.5 C-React Prot High Sens Urine Color Urine Appearance Urine pH Ur Specific [place] Urine Protein Urine Glucose (UA) Urine Ketones Urine Blood Urine Nitrate Urine Bilirubin Urine Urobilinogen Ur Leukocyte Esterase Urine RBC Urine WBC Ur Epithelial Cells Urine Bacteria Assessment & Plan - Assessment and Plan (Free Text) Assessment: 51 y/o paraplegic male with left heel pressure ulceration that probes to bone Plan: Pt seen and evaluated with attending Dr. Jalloh Chart, labs and vitals reviewed- WBC 10.0, afebrile, ESR 131, CRP > 15 X-rays of L heel reviewed, negative for erosive cortical changes, no fractures or dislocations MRI reveals no erosive cortical changes, no marrow edema, no signs of osteomyelitis Wound cx of L heel posteromedial wound pending Continue IV Vancomycin and Meropenem Dressed L heel with optifoam and elevated B/L heels with pillows Offloading boots ordered, to be worn at all times Podiatry will continue to follow patient while in house Will discuss with ID regarding abx coverage for wound that probes to bone with ( -) MRI Thank you for this consult <Patricia Jalloh - Last Filed: 02/08/17 13:31> Meds - Medications Medications: Current Medications Ascorbic Acid (Vitamin C 500 Mg Tab) 500 mg PO DAILY [facility] Last Admin: 02/08/17 10:04 Dose: 500 mg Baclofen (Lioresal) 20 mg PO TID [facility] Last Admin: 02/08/17 13:09 Dose: 20 mg Enoxaparin Sodium (Lovenox) 100 mg SC 0000,1200 [facility] PRN Reason: Protocol Last Admin: 02/08/17 13:07 Dose: 100 mg Gabapentin (Neurontin) 300 mg PO TID [facility] PRN Reason: Protocol Last Admin: 02/08/17 10:04 Dose: 300 mg Hydromorphone HCl (Dilaudid) 0.5 mg IVP Q3H PRN PRN Reason: Pain, moderate (4-7) Last Admin: 02/08/17 10:37 Dose: 0.5 mg Vancomycin HCl (Vancomycin 1gm) 1 gm in 250 mls @ 167 mls/hr IVPB Q12H [facility] PRN Reason: Protocol Last Admin: 02/08/17 05:14 Dose: 167 mls/hr Meropenem 1 gm/ Dextrose 100 mls @ 100 mls/hr IVPB Q8 [facility] PRN Reason: Protocol Stop: 02/11/17 14:01 Last Admin: 02/08/17 13:09 Dose: 100 mls/hr Mupirocin (Bactroban Ointment) 0 gm TOP BID [facility] Last Admin: 02/08/17 10:04 Dose: Not Given Pantoprazole Sodium (Protonix Ec Tab) 40 mg PO ACB [facility] Last Admin: 02/08/17 08:57 Dose: 40 mg Zinc Sulfate (Zinc Sulfate 220 Mg Cap) 220 mg PO DAILY [facility] Last Admin: 02/08/17 10:05 Dose: 220 mg Results - Vital Signs Recent Vital Signs: Last Vital Signs Temp 97.7 F 02/08/17 11:44 Pulse 62 02/08/17 11:44 Resp 20 02/08/17 11:44 BP 114/63 02/08/17 11:44 Pulse Ox 98 02/08/17 05:42 - Labs Result Diagrams: 02/08/17 06:15 11/12/17 06:15 Labs: Laboratory Results - last 24 hr 02/08/17 02/08/17 02/08/17 06:15 06:15 06:15 WBC 4.8 D RBC 3.38 L Hgb 8.9 L Hct 28.7 L MCV 84.9 MCH 26.3 MCHC 31.0 RDW 15.4 H Plt Count 231 MPV 11.2 H Gran % 49.3 L Lymph % (Auto) 34.8 [place] % (Auto) 12.8 H Eos % (Auto) 2.5 Baso % (Auto) 0.6 Gran # 2.35 Lymph # 1.7 [place] # 0.6 Eos # 0.1 Baso # 0.03 PT 14.2 H INR 1.28 H APTT 35.7 Sodium 140 Potassium 3.9 Chloride 105 Carbon Dioxide 33 Anion Gap 6 L BUN 12 Creatinine 0.6 L Est GFR ( Amer) > 60 Est GFR (Non-Af Amer) > 60 Random Glucose 98 Calcium 9.0 Phosphorus 3.6 Magnesium 1.6 L Total Bilirubin 0.4 AST 18 ALT 33 Alkaline Phosphatase 58 Total Protein 6.2 Albumin 2.8 L Globulin 3.4 Albumin/Globulin Ratio 0.8 L Vancomycin Trough 02/08/17 06:15 WBC RBC Hgb Hct MCV MCH MCHC RDW Plt Count MPV Gran % Lymph % (Auto) [place] % (Auto) Eos % (Auto) Baso % (Auto) Gran # Lymph # [place] # Eos # Baso # PT INR APTT Sodium Potassium Chloride Carbon Dioxide Anion Gap BUN Creatinine Est GFR ( Amer) Est GFR (Non-Af Amer) Random Glucose Calcium Phosphorus Magnesium Total Bilirubin AST ALT Alkaline Phosphatase Total Protein Albumin Globulin Albumin/Globulin Ratio Vancomycin Trough 19.3 H* Attending/Attestation - Attestation I have personally seen and examined this patient.: Yes I have fully participated in the care of the patient.: Yes I have reviewed all pertinent clinical information: Yes Notes (Text): 02/08/17 13:30 heel wound probed to bone indicating clinical OM - since pt also will need IV abx for sacral wound no surgical intervention planned
[2017-01-28] MEDS ORDERED: Iohexol 350 MG/100 ML VIAL ONE (18:02)
--- NOTE | 2017-01-28 20:30 | CT ---
EXAM: CT Abdomen and Pelvis With Intravenous Contrast CLINICAL HISTORY: 51 years old, male; Screening exam; Other: Eval for rectocut. Fistula; Additional info: Eval for rectocut. Fistula (incl. Entire rectum) TECHNIQUE: Axial computed tomography images of the abdomen and pelvis with intravenous contrast. All CT scans at this facility use one or more dose reduction techniques, viz.: automated exposure control; ma/kV adjustment per patient size (including targeted exams where dose is matched to indication; i.e. head); or iterative reconstruction technique. Coronal and sagittal reformatted images were created and reviewed. CONTRAST: 100 mL of OMNI 350 administered intravenously. COMPARISON: CT - ABD PELVIS W/O PO OR IV CONT 2016-07-16 18:53 FINDINGS: Artifacts: Suboptimal positioning of the patient's arms, causes artifact. Streak artifact. Lower thorax: 4 mm nodule posteriorly at left lung base. ABDOMEN: Liver: Hepatic steatosis. Gallbladder and bile ducts: Rim calcified gallstone in gallbladder neck. This measures 1.5 CM. No ductal dilation. Pancreas: Unremarkable. No mass. No ductal dilation. Spleen: Unremarkable. No splenomegaly. Adrenals: Unremarkable. No mass. Kidneys and ureters: Unremarkable. No solid mass. No hydronephrosis. Stomach and bowel: Unremarkable. No obstruction. Appendix: No findings to suggest acute appendicitis. PELVIS: Bladder: Mackenzie balloon in partially decompressed thick walled urinary bladder. Reproductive: Unremarkable as visualized. Subperitoneal space: Inflammatory changes in the presacral space. ABDOMEN and PELVIS: Intraperitoneal space: Unremarkable. No free air. No significant fluid collection. Bones/joints: Some resorption of the osseous structures, sacrum and coccyx, deep to the suspected abscess, consistent with osteomyelitis. Diffuse spinal degenerative changes. Periarticular calcifications, adjacent to posterior aspect of the left hip. No acute fracture. No dislocation. Soft tissues: Fluid and air collection superficial to the coccyx bone. The appearance is consistent with an abscess. Series 604 image #100. This measures 5 CM craniocaudal x 4.3 CM transverse. Additional small foci of subcutaneous gas which appear to track to the skin surface. Overlying soft tissue stranding and deformity, suggestive of decubitus ulcer. Vasculature: IVC filter. Atherosclerotic vascular disease. No abdominal aortic aneurysm. Lymph nodes: Enlarged bilateral inguinal lymph nodes. Enlarged bilateral iliac chain lymph nodes. IMPRESSION: 1. 5 x 4.3 CM pilonidal abscess with associated destructive changes involving the distal sacrum and portion of the coccyx, consistent with acute osteomyelitis. 2. Presacral inflammatory changes, within the pelvic cavity. No definite tract is identified to confirm rectocutaneous fistula. Consider followup Gastrografin enema or fistulogram, necessary for further evaluation. 3. Remainder of findings as above. 4. Remainder of findings as above.
--- NOTE | 2017-01-29 03:30 | CON ---
DATE: 01/28/2017 LOCATION: The patient is seen in room 569, bed 2. CHIEF COMPLAINT: The patient was admitted through the emergency room with diagnoses of left heel ulcer and . HISTORY OF PRESENT ILLNESS: This is a 51-year-old male, known to me from previous admission with patient history of hypertension, alcoholism, tobacco use, was admitted with epidural abscess with Strep pneumoniae, had cord compression, is paralyzed. He had laminectomy at that time and now has been bed ridden. He developed significant decubitus ulcer and now infectious disease consultation requested. The patient also developed left heel ulcer in addition to sacral ulcer. The patient has not had any fevers, any chills. No nausea or vomiting. No abdominal pian, diarrhea, or constipation. The patient does have a Mackenzie catheter in. PAST MEDICAL HISTORY: Significant for Strep pneumoniae epidural abscess with cord compression, DVT, hypertension, and paralysis. PAST SURGICAL HISTORY: Significant for laminectomy. ALLERGIES: THE PATIENT IS ALLERGIC TO CEFTRIAXONE AND CEPHALOSPORINS. MEDICATIONS AT HOME: Include Coumadin, Protonix, and gabapentin. PHYSICAL EXAMINATION: GENERAL: The patient is in bed, awake and alert. VITAL SIGNS: Temperature of 98, blood pressure is 130/80, respiratory rate of 16. HEENT: Unremarkable. NECK: Supple. LUNGS: Decreased breath sounds. HEART: Normal S1, S2. ABDOMEN: Soft, nontender. LABORATORY EXAMINATION: The patient's decubitus reveals a large sacral decubiti. Examination of the left heel reveals a left heel ulcer. Laboratory examination reveals the patient to have a white count of 9.7, hemoglobin of 110. Coagulation is noted and chemistries are reviewed. C-reactive protein is greater than 50. Procalcitonin is 0.11. Urinalysis, too numerous to count WBCs and moderate bacteria. The cultures revealed the C. diff antigen and toxin are negative. Wound cultures are pending. The blood cultures have no growth. ASSESSMENT AND PLAN: This is a 51-year-old male with history of epidural abscess with Streptococcus pneumoniae, had cord compression, paralysis, deep venous thrombosis, and hypertension, admitted with decubitus ulcer and acute osteomyelitis with 5 x 4 pilonidal abscess seen on the CAT scan of the abdomen and pelvis, and a left heel ulcer. On exam, heel osteomyelitis. Although, the patient had an MRI that was negative. Currently on vancomycin and meropenem. We will continue antibiotics, pending culture results, we will make further recommendations. Colt Coronel MD
[2017-01-29] MEDS: Meropenem 500 MG in Sodium Chloride 0.9% 50 ML IVPB SCH ×3 (05:20→21:24)
[2017-01-29] MEDS: Vancomycin 1gm in NS 250ml 1 GM/250 ML BAG IVPB SCH ×2 (06:17→18:07)
[2017-01-29 08:31] LABS: BASO # 0.02 K/mm3 (0.0-2.0); BASO % 0.2 % (0.0-3.0); EOS # 0.1 (0.0-0.7); EOS % 1.1 % (1.5-5.0); GRAN # 7.06 (1.4-6.5); GRAN % 74.7 % (50.0-68.0); HEMATOCRIT 30.9 % (42.0-52.0); LYMPH # 1.4 (1.2-3.4); LYMPH % 14.6 % (22.0-35.0); MEAN CELL VOLUME 83.3 fl (80.0-105.0); MEAN CORPUSCULAR HEMOGLOBIN 27.8 pg (25.0-35.0); MEAN CORPUSCULAR HGB CONC 33.3 g/dl (31.0-37.0); MEAN PLATELET VOLUME 10.9 fl (7.0-11.0); MONO # 0.9 (0.1-0.6); MONO % 9.4 % (1.0-6.0); RED CELL DISTRIBUTION WIDTH 14.9 % (11.5-14.5); WHITE BLOOD COUNT 9.5 10^3/ul (4.5-11.0)
[2017-01-29 08:50] LABS: ALB/GLOB RATIO 0.9 (1.1-1.8); ALKALINE PHOSPHATASE 77 U/L (38-126); ALT/SGPT 26 U/L (7-56); AST/SGOT 29 U/L (17-59); BILIRUBIN,TOTAL 0.5 mg/dL (0.2-1.3); BLOOD UREA NITROGEN 10 mg/dL (7-21); CALCIUM 9.5 mg/dL (8.4-10.5); CARBON DIOXIDE 29 mmol/L (21-33); CHLORIDE 101 mmol/L (98-107); GFR AFRICAN-AMERICAN > 60; GLUCOSE,RANDOM 112 mg/dL (70-110); SODIUM 140 mmol/L (132-148); TOTAL PROTEIN 7.5 g/dL (5.8-8.3)
--- NOTE | 2017-01-29 09:46 | CP.PCM.PN ---
Subjective - Date & Time of Evaluation Date of Evaluation: 01/29/17 Time of Evaluation: 09:29 - Subjective Subjective: PGY1 General Surgery Note for Dr. Askew Patient seen and examined at bedside this morning. No acute events overnight. Patient states he is currently not in any pain. He is tolerating his diet. Patient was informed that the CT scan from yesterday did not show a fistula but did show that he may have acute osteomyolitis of his sacrum. Patient is very concerned that this may not allow him to have his surgery that is tentatively scheduled at another institution on February 16. Patient inquired about just staying inpatient here and having his procedure with Dr. Askew here. Patient denies fevers, chills, nausea, vomiting, constipation (patient is incontinent at baseline), shortness of breath or chest pain. Objective - Vital Signs/Intake and Output Vital Signs (last 24 hours): Temp Pulse Resp BP Pulse Ox 98.7 F 61 18 114/66 97 01/29/17 07:30 01/29/17 07:30 01/29/17 07:30 01/29/17 07:30 01/29/17 07:30 Intake and Output: 01/29/17 01/29/17 06:59 18:59 Intake Total 720 Output Total 2050 Balance -1330 - Medications Medications: Current Medications Baclofen (Lioresal) 20 mg PO TID [facility] Last Admin: 01/28/17 17:06 Dose: 20 mg Gabapentin (Neurontin) 300 mg PO TID [facility] PRN Reason: Protocol Last Admin: 01/28/17 17:06 Dose: 300 mg Vancomycin HCl (Vancomycin 1gm) 1 gm in 250 mls @ 167 mls/hr IVPB Q12H [facility] PRN Reason: Protocol Last Admin: 01/29/17 06:17 Dose: 167 mls/hr Meropenem 500 mg/ Sodium (Chloride) 50 mls @ 100 mls/hr IVPB Q8 [facility] PRN Reason: Protocol Stop: 02/03/17 16:16 Last Admin: 01/29/17 05:20 Dose: 100 mls/hr Pantoprazole Sodium (Protonix Ec Tab) 40 mg PO ACB [facility] Last Admin: 01/28/17 08:01 Dose: 40 mg Warfarin Sodium (Coumadin) 4 mg PO 0800 [facility] PRN Reason: Protocol Last Admin: 01/28/17 08:01 Dose: 4 mg - Labs Labs: 01/29/17 08:25 01/29/17 08:25 PT 21.2 SECONDS (9.4-12.5) H 01/28/17 06:15 INR 1.90 (0.93-1.08) H 01/28/17 06:15 APTT 35.7 Seconds (25.1-36.5) 01/27/17 14:30 - Constitutional Appears: Non-toxic, No Acute Distress - Head Exam Head Exam: ATRAUMATIC, NORMOCEPHALIC - Eye Exam Eye Exam: EOMI, Normal appearance. absent: Scleral icterus - ENT Exam ENT Exam: Mucous Membranes Moist - Neck Exam Neck Exam: Full ROM. absent: Meningismus, Tenderness - Respiratory Exam Respiratory Exam: NORMAL BREATHING PATTERN. absent: Accessory Muscle Use, Respiratory Distress - Cardiovascular Exam Cardiovascular Exam: REGULAR RHYTHM - GI/Abdominal Exam GI & Abdominal Exam: Soft. absent: Distended, Firm, Guarding, Rigid, Tenderness - Extremities Exam Extremities Exam: absent: Calf Tenderness, Pedal Edema Additional comments: Pressure boots in place. - Neurological Exam Neurological Exam: Alert, Awake, Oriented x3 - Psychiatric Exam Psychiatric exam: Anxious (worried about having to delay his surgery. ), Normal Affect - Skin Skin Exam: Dry, Warm Assessment and Plan - Assessment and Plan (Free Text) Assessment: 51 paraplegic male with left heel wound and Stage IV sacral decubitus ulcer - acute osteomyolitis Plan: - MRI Left lower extremity - no signs of acute osteo - Abd/Pelvic CT - 5 x 4.3 CM pilonidal abscess with associated destructive changes involving the distal sacrum and portion of the coccyx, consistent with acute osteomyelitis. No rectocutaneous fistula seen. - IV antibiotics - Possible debridement of sacral ulcer - f/u Podiatry recommendations - Further recs per Dr. Askew - will need to discuss possibility of performing colostomy procedure while inpatient here at [facility]. Will discuss case with Dr. Azar Reed Wali PGY1
[2017-01-29] MEDS: Pantoprazole 40 mg EC Tab PO SCH (10:01)
--- NOTE | 2017-01-29 10:17 | CP.PCM.PN ---
<Xiomara Canales - Last Filed: 01/29/17 12:24> Subjective - Date & Time of Evaluation Date of Evaluation: 01/29/17 Time of Evaluation: 10:12 - Subjective Subjective: 51 y/o male seen at bedside with attending Dr. Jalloh for left heel pressure ulceration that probes to bone. Pt states he is agreeable to stay in house for antibiotic treatment, as he has now learned that he has bone infection at the site of his sacral ulcer. Pt spoke with the surgery team and agrees to 4-6 weeks of IV antibiotics. Pt denies any F/C/N/V/CP/SOB today. Objective - Vital Signs/Intake and Output Vital Signs (last 24 hours): Temp Pulse Resp BP Pulse Ox 98.7 F 61 18 114/66 97 01/29/17 07:30 01/29/17 07:30 01/29/17 07:30 01/29/17 07:30 01/29/17 07:30 Intake and Output: 01/29/17 01/29/17 06:59 18:59 Intake Total 720 Output Total 0 Balance -1330 - Medications Medications: Current Medications Baclofen (Lioresal) 20 mg PO TID [facility] Last Admin: 01/29/17 10:01 Dose: 20 mg Gabapentin (Neurontin) 300 mg PO TID [facility] PRN Reason: Protocol Last Admin: 01/29/17 10:01 Dose: 300 mg Vancomycin HCl (Vancomycin 1gm) 1 gm in 250 mls @ 167 mls/hr IVPB Q12H [facility] PRN Reason: Protocol Last Admin: 01/29/17 06:17 Dose: 167 mls/hr Meropenem 500 mg/ Sodium (Chloride) 50 mls @ 100 mls/hr IVPB Q8 [facility] PRN Reason: Protocol Stop: 02/03/17 16:16 Last Admin: 01/29/17 05:20 Dose: 100 mls/hr Pantoprazole Sodium (Protonix Ec Tab) 40 mg PO ACB [facility] Last Admin: 01/29/17 10:01 Dose: 40 mg Warfarin Sodium (Coumadin) 4 mg PO 0800 [facility] PRN Reason: Protocol Last Admin: 01/29/17 10:01 Dose: 4 mg - Labs Labs: 01/29/17 08:25 01/29/17 08:25 PT 21.2 SECONDS (9.4-12.5) H 11/01/17 06:15 INR 1.90 (0.93-1.08) H 01/28/17 06:15 APTT 35.7 Seconds (25.1-36.5) 01/27/17 14:30 - Constitutional Appears: Well, Non-toxic, No Acute Distress - Extremities Exam Additional comments: LE focused examination: Vasc: DP/PT pulses palpable 2/4 B/L. Temperature gradient warm to cool on R, warm to warm on L. CFT < 3 sec to all digits. Mild non-pitting edema localized to L heel. Neuro: Protective sensation grossly diminished B/L Derm: L posteromedial heel exhibits circular 2.5cm diameter ulceration with fibrotic base that probes down to calcaneal bone and is boggy in nature. Kathy- wound area exhibits sloughed skin with mild erythema. Additional 1.5cm x 0.8cm x 0.1cm superficial ulceration noted to posterior heel with fibrotic base, no malodor, no fluctuance, no undermining, no probe to bone Ortho: Involuntary muscle spasms noted to B/L LE, L>R. No tenderness to palpation of L heel at site of wounds - Neurological Exam Neurological Exam: Alert, Awake, Oriented x3 - Psychiatric Exam Psychiatric exam: Normal Affect, Normal Mood Assessment and Plan - Assessment and Plan (Free Text) Assessment: 51 y/o paraplegic male with left heel pressure ulceration that probes to bone. Likely clinical osteomyelitis despite negative x-ray and MRI results for radiographic OM changes. Plan: Pt seen and evaluated with attending Dr. Jalloh Chart, labs and vitals reviewed- WBC 9.5, afebrile X-rays of L heel reviewed, negative for erosive cortical changes, no fractures or dislocations MRI reveals no erosive cortical changes, no marrow edema, no signs of osteomyelitis Wound cx of L heel posteromedial wound pending Continue IV Vancomycin and Meropenem per ID, await cultures to direct abx treatment PICC line ordered, awaiting placement Dressed L heel with optifoam and re-applied Multipodus boots Podiatry will continue to follow patient while in house <Patricia Jalloh - Last Filed: 02/08/17 13:32> Objective - Vital Signs/Intake and Output Vital Signs (last 24 hours): Temp Pulse Resp BP Pulse Ox 97.7 F 62 20 114/63 98 02/08/17 11:44 02/08/17 11:44 02/08/17 11:44 02/08/17 11:44 02/08/17 05:42 Intake and Output: 02/08/17 02/08/17 06:59 18:59 Intake Total 1350 Balance 1350 - Medications Medications: Current Medications Ascorbic Acid (Vitamin C 500 Mg Tab) 500 mg PO DAILY [facility] Last Admin: 02/08/17 10:04 Dose: 500 mg Baclofen (Lioresal) 20 mg PO TID [facility] Last Admin: 02/08/17 13:09 Dose: 20 mg Enoxaparin Sodium (Lovenox) 100 mg SC 0000,1200 [facility] PRN Reason: Protocol Last Admin: 02/08/17 13:07 Dose: 100 mg Gabapentin (Neurontin) 300 mg PO TID [facility] PRN Reason: Protocol Last Admin: 02/08/17 13:31 Dose: 300 mg Hydromorphone HCl (Dilaudid) 0.5 mg IVP Q3H PRN PRN Reason: Pain, moderate (4-7) Last Admin: 02/08/17 10:37 Dose: 0.5 mg Vancomycin HCl (Vancomycin 1gm) 1 gm in 250 mls @ 167 mls/hr IVPB Q12H [facility] PRN Reason: Protocol Last Admin: 02/08/17 05:14 Dose: 167 mls/hr Meropenem 1 gm/ Dextrose 100 mls @ 100 mls/hr IVPB Q8 [facility] PRN Reason: Protocol Stop: 02/11/17 14:01 Last Admin: 02/08/17 13:09 Dose: 100 mls/hr Mupirocin (Bactroban Ointment) 0 gm TOP BID [facility] Last Admin: 02/08/17 10:04 Dose: Not Given Pantoprazole Sodium (Protonix Ec Tab) 40 mg PO ACB [facility] Last Admin: 02/08/17 08:57 Dose: 40 mg Zinc Sulfate (Zinc Sulfate 220 Mg Cap) 220 mg PO DAILY [facility] Last Admin: 02/08/17 10:05 Dose: 220 mg - Labs Labs: 02/08/17 06:15 02/08/17 06:15 PT 14.2 SECONDS (9.4-12.5) H 02/08/17 06:15 INR 1.28 (0.93-1.08) H 02/08/17 06:15 APTT 35.7 Seconds (25.1-36.5) 02/08/17 06:15 Attending/Attestation - Attestation I have personally seen and examined this patient.: Yes I have fully participated in the care of the patient.: Yes I have reviewed all pertinent clinical information, including history, physical exam and plan: Yes
--- NOTE | 2017-01-29 14:36 | CP.PCM.PN ---
<Mekhi Simental - Last Filed: 01/29/17 14:32> Subjective - Date & Time of Evaluation Date of Evaluation: 01/29/17 Time of Evaluation: 06:00 - Subjective Subjective: Patient seen and examined bedside. Patient was lying comfortably, no acute issues overnight. Patient denies any pain from heel ulcer. Patient aware of plan of IV antibiotic use for next 4-6 weeks and agrees. Patient wanted to know if surgery would do a colostomy procedure that he was supposed to have done elsewhere. Patient denies shortness of breath, chest pain, nausea, fever, chills or any other complaints at this time. Objective - Vital Signs/Intake and Output Vital Signs (last 24 hours): Temp Pulse Resp BP Pulse Ox 98.6 F 61 18 114/66 97 01/29/17 13:52 01/29/17 07:30 01/29/17 07:30 01/29/17 07:30 01/29/17 07:30 Intake and Output: 01/29/17 01/29/17 06:59 18:59 Intake Total 720 960 Output Total 2050 1400 Balance -1330 -440 - Medications Medications: Current Medications Baclofen (Lioresal) 20 mg PO TID [facility] Last Admin: 01/29/17 13:08 Dose: 20 mg Gabapentin (Neurontin) 300 mg PO TID DONAL PRN Reason: Protocol Last Admin: 01/29/17 13:08 Dose: 300 mg Vancomycin HCl (Vancomycin 1gm) 1 gm in 250 mls @ 167 mls/hr IVPB Q12H DONAL PRN Reason: Protocol Last Admin: 01/29/17 06:17 Dose: 167 mls/hr Meropenem 500 mg/ Sodium (Chloride) 50 mls @ 100 mls/hr IVPB Q8 DONAL PRN Reason: Protocol Stop: 02/03/17 16:16 Last Admin: 01/29/17 13:08 Dose: 100 mls/hr Pantoprazole Sodium (Protonix Ec Tab) 40 mg PO ACB [facility] Last Admin: 01/29/17 10:01 Dose: 40 mg Warfarin Sodium (Coumadin) 4 mg PO 0800 DONAL PRN Reason: Protocol Last Admin: 01/29/17 10:01 Dose: 4 mg - Labs Labs: 01/29/17 08:25 01/29/17 08:25 PT 21.2 SECONDS (9.4-12.5) H 01/28/17 06:15 INR 1.90 (0.93-1.08) H 01/28/17 06:15 APTT 35.7 Seconds (25.1-36.5) 01/27/17 14:30 - Constitutional Appears: Non-toxic, No Acute Distress - Head Exam Head Exam: ATRAUMATIC, NORMAL INSPECTION, NORMOCEPHALIC - Eye Exam Eye Exam: EOMI, Normal appearance, PERRL Pupil Exam: NORMAL ACCOMODATION, PERRL - ENT Exam ENT Exam: Mucous Membranes Moist, Normal Exam - Neck Exam Neck Exam: Full ROM, Normal Inspection - Respiratory Exam Respiratory Exam: Clear to Ausculation Bilateral, NORMAL BREATHING PATTERN - Cardiovascular Exam Cardiovascular Exam: REGULAR RHYTHM - GI/Abdominal Exam GI & Abdominal Exam: Soft, Normal Bowel Sounds - Exam Additional comments: Haque cather in tact and in place - Extremities Exam Additional comments: paraplegic, decreased motor and sensation in lower extremities bilaterally. Ulcer on left heel - Back Exam Additional comments: stage 4 ulcer - Neurological Exam Neurological Exam: Alert, Awake, Oriented x3 Neuro motor strength exam: Left Upper Extremity: 5, Right Upper Extremity: 5 - Psychiatric Exam Psychiatric exam: Normal Mood - Skin Skin Exam: Normal Color Assessment and Plan - Assessment and Plan (Free Text) Assessment: 51 year old male parapledgic with past medical history of spinal abcess, laminectomy, DVT presents to the ED form wound care due to possible heel infection of the left foot. Patient admitted for evaluation of wound and will be treated for osteomyeletis. Plan: 1. Left heel Ulcer-Clinical Osteomyelitis -EKG ordered and obtained -Blood and wound cultures ordered, pending -Patient afebrile, no leukocytosis -started on vancomycin and meropenem, will f/u with ID -Xray of the left foot: no focal lesion, degenerative changes of tibiotalar and subtalar joints. Corticol sclerosis and osteophytes -MRI of left ankle: no evidence of osteomyelitis radiologically -probe to bone meaning clinical osteomyelitis -Podiatry: Continue IV Vancomycin and Meropenem per ID, await cultures to direct abx treatment. patient will need 4-6 weeks of abx treatment -PICC line ordered, awaiting placement -Dressed L heel with optifoam and re-applied Multipodus boots -Podiatry will continue to follow patient while in house -ID consulted, Berna, will choose abx therapy 2. Paraplegia- chronic -continue home Baclofen -PT evaluation ordered -continue home neurontin -using a haque for incontinence , haque was changed yesterday 3. History of DVT -INR ordered -continue home warfarin 4mg -will continue to trend INR 4. Sacral Decubitus Ulcer -stage 4 -Abd/Pelvic CT - 5 x 4.3 CM pilonidal abscess with associated destructive changes involving the distal sacrum and portion of the coccyx, consistent with acute osteomyelitis. No rectocutaneous fistula seen. -surgery consulted, continue IV abx, possible debrediment, will follow up with Dr. Askew -Further recs per Dr. Askwe - will need to discuss possibility of performing colostomy procedure while inpatient here at [facility] -wound care 5. GI/DVT Prophylaxis -sequential compression devices -Protonix home continued <Tobin Piedra - Last Filed: 01/29/17 18:47> Objective - Vital Signs/Intake and Output Vital Signs (last 24 hours): Temp Pulse Resp BP Pulse Ox 98.3 F 72 18 114/66 99 01/29/17 16:05 01/29/17 16:05 01/29/17 16:05 01/29/17 07:30 01/29/17 16:05 Intake and Output: 01/29/17 01/29/17 06:59 18:59 Intake Total 720 960 Output Total 2050 1400 Balance -1330 -440 - Medications Medications: Current Medications Baclofen (Lioresal) 20 mg PO TID [facility] Last Admin: 01/29/17 18:06 Dose: 20 mg Enoxaparin Sodium (Lovenox) 100 mg SC Q12H DONAL PRN Reason: Protocol Last Admin: 01/29/17 18:06 Dose: 100 mg Gabapentin (Neurontin) 300 mg PO TID DONAL PRN Reason: Protocol Last Admin: 01/29/17 18:06 Dose: 300 mg Vancomycin HCl (Vancomycin 1gm) 1 gm in 250 mls @ 167 mls/hr IVPB Q12H DONAL PRN Reason: Protocol Last Admin: 01/29/17 18:07 Dose: 167 mls/hr Meropenem 500 mg/ Sodium (Chloride) 50 mls @ 100 mls/hr IVPB Q8 DONAL PRN Reason: Protocol Stop: 02/03/17 16:16 Last Admin: 01/29/17 13:08 Dose: 100 mls/hr Pantoprazole Sodium (Protonix Ec Tab) 40 mg PO ACB [facility] Last Admin: 01/29/17 10:01 Dose: 40 mg - Labs Labs: 01/29/17 08:25 01/29/17 08:25 PT 19.3 SECONDS (9.4-12.5) H 01/29/17 15:15 INR 1.75 (0.93-1.08) H 01/29/17 15:15 APTT 35.7 Seconds (25.1-36.5) 01/27/17 14:30 Attending/Attestation - Attestation I have personally seen and examined this patient.: Yes I have fully participated in the care of the patient.: Yes I have reviewed all pertinent clinical information, including history, physical exam and plan: Yes Notes (Text): 01/29/17 18:41 Attending note; Patient seen and examined with resident. Patient is a 51 year old male with past medical history of spinal abcess, laminectomy, paraplegia,DVT presents to the ED form wound care due to possible heel infection of the left foot. on vancomycin and meropenem. ID evaluation appreciated. Podiatry evaluation appreciated. Case discussed with . MRI is negative for osteomyelitis. 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 patient needs 4-6 weeks of IV antibiotics. PICC line team consulted. Patient is bedridden; sacral decubitus. Surgery evaluation appreciated .CT abdomen and pelvis showed sacral osteomyelitis. no recto utaneos fistula seen. case discussed with Surgery in detail. plan for debridement Thursday. possible plan for colostomy next week. History of DVT; we will hold Coumadin. Start subcutaneous Lovenox. PT evaluation appreciated. Upon discharge the patient will follow-up with PMD .
[2017-01-29 15:38] LABS: INR 1.75 (0.93-1.08)
[2017-01-29] MEDS: Enoxaparin 100 mg Syringe SC SCH (18:06)
--- NOTE | 2017-01-30 03:29 | PN ---
DATE: 01/29/2017 SUBJECTIVE: The patient was seen early this morning. He is awake and alert, doing well. PHYSICAL EXAMINATION: VITAL SIGNS: Temperature is 98, blood pressure is and respiratory rate of 18. HEENT: Unremarkable. NECK: Supple. LUNGS: Decreased breath sounds. HEART: Normal S1 and S2. ABDOMEN: Soft. LABORATORY DATA: Reveals the patient's white count is 9.5 and sed rate is 131. Chemistries reveal the BUN of 10, creatinine of 0.7 and procalcitonin 0.11. Urinalysis is too numerous to count wbc's, many bacteria. The stool for C. diff is negative antigen and negative toxin. Urine culture is negative. Blood cultures are negative. 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 The patient had an MRI, which was negative. Currently on vancomycin and meropenem pending panculture results, which are pending and we will follow closely with you. Overall prognosis is poor. Colt Coronel MD
[2017-01-30] MEDS: Meropenem 500 MG in Sodium Chloride 0.9% 50 ML IVPB SCH ×3 (05:41→21:24)
[2017-01-30] MEDS: Enoxaparin 100 mg Syringe SC SCH ×3 (05:47→21:29)
[2017-01-30] MEDS: Vancomycin 1gm in NS 250ml 1 GM/250 ML BAG IVPB SCH ×2 (06:33→18:52)
[2017-01-30 07:43] LABS: HEMATOCRIT 32.3 % (42.0-52.0); MEAN CELL VOLUME 83.5 fl (80.0-105.0); MEAN CORPUSCULAR HEMOGLOBIN 26.6 pg (25.0-35.0); MEAN CORPUSCULAR HGB CONC 31.9 g/dl (31.0-37.0); MEAN PLATELET VOLUME 11.4 fl (7.0-11.0); RED CELL DISTRIBUTION WIDTH 15.1 % (11.5-14.5); WHITE BLOOD COUNT 7.9 10^3/ul (4.5-11.0)
[2017-01-30 07:53] LABS: BLOOD UREA NITROGEN 11 mg/dL (7-21); CALCIUM 9.8 mg/dL (8.4-10.5); CARBON DIOXIDE 28 mmol/L (21-33); CHLORIDE 103 mmol/L (98-107); GFR AFRICAN-AMERICAN > 60; GLUCOSE,RANDOM 108 mg/dL (70-110); SODIUM 141 mmol/L (132-148)
--- NOTE | 2017-01-30 07:53 | CP.PCM.PN ---
Subjective - Date & Time of Evaluation Date of Evaluation: 01/30/17 Time of Evaluation: 07:42 - Subjective Subjective: PGY1 General Surgery Note for Dr. Askew Patient seen and examined at bedside this morning. No acute events over night. Patient states he has no complaints. He is currently worried about how this infection will delay his abdominal surgery. He reports that he is going to lose his insurance on or around March 13, 2017, so he wants to make sure that he gets surgery before he loses his insurance. Patient informed that he will be going to OR for debridement of sacral wound on Thursday. Patient denies fevers, chills, nausea, vomiting, shortness of breath or chest pain. Objective - Vital Signs/Intake and Output Vital Signs (last 24 hours): Temp Pulse Resp BP Pulse Ox 97.7 F 57 L 18 109/56 L 98 01/30/17 07:27 01/30/17 07:27 01/30/17 07:27 01/30/17 07:27 01/30/17 07:27 Intake and Output: 01/30/17 01/30/17 06:59 18:59 Intake Total 1280 Output Total 2075 Balance -795 - Medications Medications: Current Medications Baclofen (Lioresal) 20 mg PO TID [facility] Last Admin: 01/29/17 18:06 Dose: 20 mg Enoxaparin Sodium (Lovenox) 100 mg SC Q12H DONAL PRN Reason: Protocol Last Admin: 01/30/17 05:47 Dose: 100 mg Gabapentin (Neurontin) 300 mg PO TID [facility]AL PRN Reason: Protocol Last Admin: 01/29/17 18:06 Dose: 300 mg Vancomycin HCl (Vancomycin 1gm) 1 gm in 250 mls @ 167 mls/hr IVPB Q12H DONAL PRN Reason: Protocol Last Admin: 01/30/17 06:33 Dose: 167 mls/hr Meropenem 500 mg/ Sodium (Chloride) 50 mls @ 100 mls/hr IVPB Q8 DONAL PRN Reason: Protocol Stop: 02/03/17 16:16 Last Admin: 01/30/17 05:41 Dose: 100 mls/hr Pantoprazole Sodium (Protonix Ec Tab) 40 mg PO ACB [facility] Last Admin: 01/29/17 10:01 Dose: 40 mg - Labs Labs: 01/29/17 08:25 01/29/17 08:25 PT 19.3 SECONDS (9.4-12.5) H 01/29/17 15:15 INR 1.75 (0.93-1.08) H 01/29/17 15:15 APTT 35.7 Seconds (25.1-36.5) 01/27/17 14:30 - Constitutional Appears: Non-toxic, No Acute Distress - Head Exam Head Exam: ATRAUMATIC, NORMOCEPHALIC - Eye Exam Eye Exam: EOMI, Normal appearance. absent: Scleral icterus - ENT Exam ENT Exam: Mucous Membranes Moist - Respiratory Exam Respiratory Exam: NORMAL BREATHING PATTERN. absent: Accessory Muscle Use, Respiratory Distress - Cardiovascular Exam Cardiovascular Exam: REGULAR RHYTHM - GI/Abdominal Exam GI & Abdominal Exam: Soft. absent: Distended, Firm, Guarding, Rigid, Tenderness - Extremities Exam Extremities Exam: absent: Calf Tenderness, Pedal Edema Additional comments: pressure ulcer boots in place. - Neurological Exam Neurological Exam: Alert, Awake, Oriented x3 - Psychiatric Exam Psychiatric exam: Normal Affect, Normal Mood - Skin Skin Exam: Dry, Warm Assessment and Plan - Assessment and Plan (Free Text) Assessment: 51 paraplegic male with left heel wound and Stage IV sacral decubitus ulcer - acute osteomyolitis Plan: - MRI Left lower extremity - no signs of acute osteomyelitis - Abd/Pelvic CT - 5 x 4.3 CM pilonidal abscess with associated destructive changes involving the distal sacrum and portion of the coccyx, consistent with acute osteomyelitis. No rectocutaneous fistula seen. - IV antibiotics - PICC line insertion - OR for debridement of sacral ulcer on ThursdayFebruary 02 @ 4pm - f/u Podiatry recommendations - Further recs per Dr. Askew Will discuss case with Dr. Azar Reed Wali PGY1
[2017-01-30 08:01] LABS: GRAN % 75.2 % (50.0-68.0)
[2017-01-30 08:02] LABS: BASO # 0.03 K/mm3 (0.0-2.0); BASO % 0.4 % (0.0-3.0); EOS # 0.1 (0.0-0.7); EOS % 1.3 % (1.5-5.0); GRAN # 6.02 (1.4-6.5); LYMPH # 1.2 (1.2-3.4); LYMPH % 15.5 % (22.0-35.0); MONO # 0.6 (0.1-0.6); MONO % 7.6 % (1.0-6.0)
[2017-01-30 08:06] LABS: ALB/GLOB RATIO 0.9 (1.1-1.8); BILIRUBIN,DIRECT 0.4 mg/dL (0.0-0.4); BILIRUBIN,TOTAL 0.5 mg/dL (0.2-1.3); TOTAL PROTEIN 7.6 g/dL (5.8-8.3)
[2017-01-30] MEDS: Pantoprazole 40 mg EC Tab PO SCH (09:07)
--- NOTE | 2017-01-30 12:43 | CP.PCM.PN ---
<Xiomara Canales - Last Filed: 01/30/17 12:48> Subjective - Date & Time of Evaluation Date of Evaluation: 01/30/17 Time of Evaluation: 12:44 - Subjective Subjective: 51 y/o male seen at bedside this morning for left heel pressure ulceration that probes down to bone. Pt is aware that he will be going to the OR Thursday to have his sacral wound cleaned out. Pt states he had his PICC line placed earlier this morning and understands that he will be going to rehab to get his antibiotic treatment. Pt states he will discuss with the general surgery team about the possibility of getting his stoma surgery done down the line. Pt denies any acute events overnight and denies being in any pain at this time, aside from some mild right arm soreness following PICC line placement. Pt denies any F/C/N/V/CP/SOB today. Objective - Vital Signs/Intake and Output Vital Signs (last 24 hours): Temp Pulse Resp BP Pulse Ox 97.7 F 57 L 18 109/56 L 98 01/30/17 07:27 01/30/17 07:27 01/30/17 07:27 01/30/17 07:27 01/30/17 07:27 Intake and Output: 01/30/17 01/30/17 06:59 18:59 Intake Total 1280 Output Total 2075 Balance -795 - Medications Medications: Current Medications Baclofen (Lioresal) 20 mg PO TID [facility] BEDS AT [facility] Last Admin: 01/30/17 09:07 Dose: 20 mg Enoxaparin Sodium (Lovenox) 100 mg SC Q12H DONAL PRN Reason: Protocol Last Admin: 01/30/17 05:47 Dose: 100 mg Gabapentin (Neurontin) 300 mg PO TID DONAL PRN Reason: Protocol Last Admin: 01/30/17 09:06 Dose: 300 mg Vancomycin HCl (Vancomycin 1gm) 1 gm in 250 mls @ 167 mls/hr IVPB Q12H DONAL PRN Reason: Protocol Last Admin: 01/30/17 06:33 Dose: 167 mls/hr Meropenem 500 mg/ Sodium (Chloride) 50 mls @ 100 mls/hr IVPB Q8 DONAL PRN Reason: Protocol Stop: 02/03/17 16:16 Last Admin: 01/30/17 05:41 Dose: 100 mls/hr Pantoprazole Sodium (Protonix Ec Tab) 40 mg PO ACB [facility] Last Admin: 01/30/17 09:07 Dose: 40 mg - Labs Labs: 01/30/17 07:26 01/30/17 07:26 PT 19.3 SECONDS (9.4-12.5) H 01/29/17 15:15 INR 1.75 (0.93-1.08) H 01/29/17 15:15 APTT 35.7 Seconds (25.1-36.5) 01/27/17 14:30 - Constitutional Appears: Well, Non-toxic, No Acute Distress - Extremities Exam Additional comments: LE focused examination: Vasc: DP/PT pulses palpable 2/4 B/L. Temperature gradient warm to cool on R, warm to warm on L. CFT < 3 sec to all digits. Mild non-pitting edema localized to L heel. Neuro: Protective sensation grossly diminished B/L Derm: L posteromedial heel exhibits circular 2.5cm diameter ulceration with fibrotic base that probes down to calcaneal bone and is boggy in nature. Kathy- wound area exhibits sloughed skin with mild erythema. Additional 1.5cm x 0.8cm x 0.1cm superficial ulceration noted to posterior heel with fibrotic base, no malodor, no fluctuance, no undermining, no probe to bone Ortho: Involuntary muscle spasms noted to B/L LE, L>R. No tenderness to palpation of L heel at site of ulcerations - Neurological Exam Neurological Exam: Alert, Awake, Oriented x3 - Psychiatric Exam Psychiatric exam: Normal Affect, Normal Mood Assessment and Plan - Assessment and Plan (Free Text) Assessment: 51 y/o paraplegic male with left heel pressure ulceration that probes to bone. Likely clinical osteomyelitis despite negative x-ray and MRI results for radiographic OM changes Plan: Pt seen and evaluated at bedside Discussed plan with attending Dr. Mojica Chart, labs and vitals reviewed- WBC 7.9, afebrile X-rays of L heel are negative for erosive cortical changes, no fractures or dislocations MRI reveals no erosive cortical changes, no marrow edema, no signs of osteomyelitis Wound cx of L heel posteromedial wound reveals growth of Corynebacterium species Pt is currently receiving IV Vancomycin and Meropenem Await recommendations from ID for culture-directed abx treatment PICC line in place to R arm Dressed L heel with optifoam and re-applied Multipodus boots Podiatry will continue to follow patient while in house <Adair Mojica - Last Filed: 01/31/17 08:32> Objective - Vital Signs/Intake and Output Vital Signs (last 24 hours): Temp Pulse Resp BP Pulse Ox 98.3 F 70 20 115/72 96 01/31/17 08:14 01/31/17 08:14 01/31/17 08:14 01/31/17 08:14 01/31/17 08:14 Intake and Output: 01/31/17 01/31/17 06:59 18:59 Intake Total 720 Output Total 500 Balance 220 - Medications Medications: Current Medications Baclofen (Lioresal) 20 mg PO TID [facility]S [facility]CLUDE 234 BEDS AT [facility] Last Admin: 01/30/17 18:50 Dose: 20 mg Enoxaparin Sodium (Lovenox) 100 mg SC Q12 DONAL PRN Reason: Protocol Last Admin: 01/30/17 21:29 Dose: 100 mg Gabapentin (Neurontin) 300 mg PO TID DONAL PRN Reason: Protocol Last Admin: 01/30/17 18:50 Dose: 300 mg Vancomycin HCl (Vancomycin 1gm) 1 gm in 250 mls @ 167 mls/hr IVPB Q12H DONAL PRN Reason: Protocol Last Admin: 01/31/17 06:24 Dose: 167 mls/hr Meropenem 500 mg/ Sodium (Chloride) 50 mls @ 100 mls/hr IVPB Q8 DONAL PRN Reason: Protocol Stop: 02/03/17 16:16 Last Admin: 01/31/17 06:22 Dose: 100 mls/hr Pantoprazole Sodium (Protonix Ec Tab) 40 mg PO ACB [facility]S [facility]CLUDE 234 BEDS AT [facility] Last Admin: 01/30/17 09:07 Dose: 40 mg - Labs Labs: 01/30/17 07:26 01/30/17 07:26 PT 20.0 SECONDS (9.4-12.5) H 01/30/17 16:21 INR 1.81 (0.93-1.08) H 01/30/17 16:21 APTT 35.7 Seconds (25.1-36.5) 01/27/17 14:30 Attending/Attestation - Attestation I have personally seen and examined this patient.: Yes I have fully participated in the care of the patient.: Yes I have reviewed all pertinent clinical information, including history, physical exam and plan: Yes
--- NOTE | 2017-01-30 13:50 | CP.PCM.PN ---
<Mekhi Simental - Last Filed: 01/30/17 13:59> Subjective - Date & Time of Evaluation Date of Evaluation: 01/30/17 Time of Evaluation: 06:00 - Subjective Subjective: Patient seen and evaluated bedside. No acute events overnight. Patient aware he will be getting a PICC line inserted and plan for sacral ulcer debrediment on Thursday. Patient denies any chest pain, shortness of breath, abdominal pain, nausea, vomiting, fever chills or any other complaints. Objective - Vital Signs/Intake and Output Vital Signs (last 24 hours): Temp Pulse Resp BP Pulse Ox 97.7 F 57 L 18 109/56 L 98 01/30/17 07:27 01/30/17 07:27 01/30/17 07:27 01/30/17 07:27 01/30/17 07:27 Intake and Output: 01/30/17 01/30/17 06:59 18:59 Intake Total 1280 Output Total 2075 Balance -795 - Medications Medications: Current Medications Baclofen (Lioresal) 20 mg PO TID [facility] Last Admin: 01/30/17 09:07 Dose: 20 mg Enoxaparin Sodium (Lovenox) 100 mg SC Q12H [facility] PRN Reason: Protocol Last Admin: 01/30/17 05:47 Dose: 100 mg Gabapentin (Neurontin) 300 mg PO TID [facility] PRN Reason: Protocol Last Admin: 01/30/17 09:06 Dose: 300 mg Vancomycin HCl (Vancomycin 1gm) 1 gm in 250 mls @ 167 mls/hr IVPB Q12H [facility] PRN Reason: Protocol Last Admin: 01/30/17 06:33 Dose: 167 mls/hr Meropenem 500 mg/ Sodium (Chloride) 50 mls @ 100 mls/hr IVPB Q8 [facility] PRN Reason: Protocol Stop: 02/03/17 16:16 Last Admin: 01/30/17 05:41 Dose: 100 mls/hr Pantoprazole Sodium (Protonix Ec Tab) 40 mg PO ACB [facility] Last Admin: 01/30/17 09:07 Dose: 40 mg - Labs Labs: 01/30/17 07:26 01/30/17 07:26 PT 19.3 SECONDS (9.4-12.5) H 01/29/17 15:15 INR 1.75 (0.93-1.08) H 01/29/17 15:15 APTT 35.7 Seconds (25.1-36.5) 01/27/17 14:30 - Constitutional Appears: Non-toxic, No Acute Distress - Head Exam Head Exam: ATRAUMATIC, NORMAL INSPECTION, NORMOCEPHALIC - Eye Exam Eye Exam: EOMI, Normal appearance, PERRL Pupil Exam: NORMAL ACCOMODATION, PERRL - ENT Exam ENT Exam: Normal Exam - Neck Exam Neck Exam: Normal Inspection - Respiratory Exam Respiratory Exam: Clear to Ausculation Bilateral, NORMAL BREATHING PATTERN - Cardiovascular Exam Cardiovascular Exam: REGULAR RHYTHM, +S1, +S2 - GI/Abdominal Exam GI & Abdominal Exam: Normal Bowel Sounds - Exam Additional comments: Haque in place - Extremities Exam Extremities Exam: absent: Tenderness Additional comments: paraplegic decreased motor strength and sensation in lower extremeties bilaterally ulcer on left heel of foot - Back Exam Additional comments: Stage 4 sacral decubitis ulcer - Neurological Exam Neurological Exam: Alert, Awake, Oriented x3 - Psychiatric Exam Psychiatric exam: Normal Affect - Skin Skin Exam: Normal Color Assessment and Plan - Assessment and Plan (Free Text) Assessment: 51 year old male parapledgic with past medical history of spinal abcess, laminectomy, DVT presents to the ED form wound care due to possible heel infection of the left foot. Patient admitted for evaluation of wound and will be treated for osteomyeletis. Plan: 1. Left heel Ulcer-Clinical Osteomyelitis -EKG ordered and obtained -Blood and wound cultures ordered, pending -Patient afebrile, no leukocytosis -continue vancomycin and meropenem, will f/u with ID -Xray of the left foot: no focal lesion, degenerative changes of tibiotalar and subtalar joints. Corticol sclerosis and osteophytes -MRI of left ankle: no evidence of osteomyelitis radiologically -probe to bone meaning clinical osteomyelitis -Podiatry Consulted , follow recs -PICC line ordered placed in right arm -Dressed L heel with optifoam and re-applied Multipodus boots -Podiatry will continue to follow patient while in house -ID consulted, Berna, will choose abx therapy once cultures return 2. Paraplegia- chronic -continue home Baclofen -PT evaluation ordered -continue home neurontin -using a haque for incontinence , haque was changed yesterday 3. History of DVT -holding coumadin -theraputic lovenox 4. Sacral Decubitus Ulcer -stage 4 -Abd/Pelvic CT - 5 x 4.3 CM pilonidal abscess with associated destructive changes involving the distal sacrum and portion of the coccyx, consistent with acute osteomyelitis. No rectocutaneous fistula seen. -surgery consulted, continue IV abx, Debrediment on Thursday, will hold lovenox after Thursday -Further recs per Dr. Askew regarding colostomy 5. GI/DVT Prophylaxis -sequential compression devices -Protonix home continued <Tobin Piedra - Last Filed: 01/30/17 16:37> Objective - Vital Signs/Intake and Output Vital Signs (last 24 hours): Temp Pulse Resp BP Pulse Ox 97.7 F 57 L 18 109/56 L 98 01/30/17 07:27 01/30/17 07:27 01/30/17 07:27 01/30/17 07:27 01/30/17 07:27 Intake and Output: 01/30/17 01/30/17 06:59 18:59 Intake Total 1280 1140 Output Total 2075 650 Balance -795 490 - Medications Medications: Current Medications Baclofen (Lioresal) 20 mg PO TID [facility] Last Admin: 01/30/17 14:59 Dose: 20 mg Enoxaparin Sodium (Lovenox) 100 mg SC Q12H [facility] PRN Reason: Protocol Last Admin: 01/30/17 15:18 Dose: 100 mg Gabapentin (Neurontin) 300 mg PO TID [facility] PRN Reason: Protocol Last Admin: 01/30/17 14:59 Dose: 300 mg Vancomycin HCl (Vancomycin 1gm) 1 gm in 250 mls @ 167 mls/hr IVPB Q12H [facility] PRN Reason: Protocol Last Admin: 01/30/17 06:33 Dose: 167 mls/hr Meropenem 500 mg/ Sodium (Chloride) 50 mls @ 100 mls/hr IVPB Q8 [facility]AL PRN Reason: Protocol Stop: 02/03/17 16:16 Last Admin: 01/30/17 05:41 Dose: 100 mls/hr Pantoprazole Sodium (Protonix Ec Tab) 40 mg PO ACB [facility] Last Admin: 01/30/17 09:07 Dose: 40 mg - Labs Labs: 01/30/17 07:26 01/30/17 07:26 PT 19.3 SECONDS (9.4-12.5) H 01/29/17 15:15 INR 1.75 (0.93-1.08) H 01/29/17 15:15 APTT 35.7 Seconds (25.1-36.5) 01/27/17 14:30 Attending/Attestation - Attestation I have personally seen and examined this patient.: Yes I have fully participated in the care of the patient.: Yes I have reviewed all pertinent clinical information, including history, physical exam and plan: Yes Notes (Text): 01/30/17 16:34 Attending note; Patient seen and examined with resident. Patient is a 51 year old male with past medical history of spinal abcess, laminectomy, paraplegia,DVT is admitted with Left heel osteomyelitis. on vancomycin and meropenem. ID evaluation appreciated. Podiatry evaluation appreciated. Case discussed with . MRI is negative for osteomyelitis. As per manager nc the patient has clinical osteomyelitis/probe to bone test. patient needs 4-6 weeks of IV antibiotics. PICC line placed. Patient is bedridden; sacral decubitus. Surgery evaluation appreciated .CT abdomen and pelvis showed sacral osteomyelitis. no recto utaneos fistula seen. case discussed with Surgery in detail. plan for debridement Thursday. possible plan for colostomy next week. History of DVT; we will hold Coumadin. on subcutaneous Lovenox. PT evaluation appreciated. Upon discharge the patient will follow-up with PMD .
[2017-01-30 16:46] LABS: INR 1.81 (0.93-1.08)
--- NOTE | 2017-01-30 16:58 | CP.PCM.PN ---
Subjective - Date & Time of Evaluation Date of Evaluation: 01/30/17 Time of Evaluation: 11:45 - Subjective Subjective: Comfortable, less pain in the sacral area, no fevers, no nausea. Objective - Vital Signs/Intake and Output Vital Signs (last 24 hours): Temp Pulse Resp BP Pulse Ox 97.7 F 57 L 18 109/56 L 98 01/30/17 07:27 01/30/17 07:27 01/30/17 07:27 01/30/17 07:27 01/30/17 07:27 Intake and Output: 01/30/17 01/30/17 06:59 18:59 Intake Total 1280 1140 Output Total 2075 650 Balance -795 490 - Medications Medications: Current Medications Baclofen (Lioresal) 20 mg PO TID [facility] Last Admin: 01/30/17 14:59 Dose: 20 mg Enoxaparin Sodium (Lovenox) 100 mg SC Q12H [facility] PRN Reason: Protocol Last Admin: 01/30/17 15:18 Dose: 100 mg Gabapentin (Neurontin) 300 mg PO TID [facility] PRN Reason: Protocol Last Admin: 01/30/17 14:59 Dose: 300 mg Vancomycin HCl (Vancomycin 1gm) 1 gm in 250 mls @ 167 mls/hr IVPB Q12H [facility] PRN Reason: Protocol Last Admin: 01/30/17 06:33 Dose: 167 mls/hr Meropenem 500 mg/ Sodium (Chloride) 50 mls @ 100 mls/hr IVPB Q8 [facility] PRN Reason: Protocol Stop: 02/03/17 16:16 Last Admin: 01/30/17 05:41 Dose: 100 mls/hr Pantoprazole Sodium (Protonix Ec Tab) 40 mg PO ACB [facility] Last Admin: 01/30/17 09:07 Dose: 40 mg - Labs Labs: 01/30/17 07:26 01/30/17 07:26 PT 20.0 SECONDS (9.4-12.5) H 01/30/17 16:21 INR 1.81 (0.93-1.08) H 01/30/17 16:21 APTT 35.7 Seconds (25.1-36.5) 01/27/17 14:30 - Constitutional Appears: Non-toxic - Head Exam Head Exam: NORMAL INSPECTION - ENT Exam ENT Exam: Mucous Membranes Moist - Neck Exam Neck Exam: absent: Meningismus - Respiratory Exam Respiratory Exam: Decreased Breath Sounds - Cardiovascular Exam Cardiovascular Exam: +S1, +S2 - GI/Abdominal Exam GI & Abdominal Exam: Soft. absent: Tenderness Assessment and Plan - Assessment and Plan (Free Text) Plan: Assessment Pilonidal abscess and sacral decubitus infection as well as left heel ulcer infection history of epidural abscess secondary to Strep pneumoniae with associated cord compression and lower extremity paralysis and neurogenic bladder S/P neurosurgery for abscess drainage and laminectomy history of partial small bowel obstruction significant smoking history alcohol abuse obesity with BMI 40 Plan continue Vancomycin and Merrem pending final cx results (negative so far) will monitor clinically
--- NOTE | 2017-01-30 20:37 | PN ---
The patient is seen on the floor. The wound is dressed, possibly due to fistula. Presently, the coags are abnormal, and hopefully, by Thursday they will correct, and we can open up this abscess. A consult is put for colonoscopy as he is probably going to require a colostomy, prefer to get that done preoperatively. As far as the heel was concerned, we discussed with Dr. Jalloh. The patient is continued to be on long-term antibiotics because of the sacrum and this would probably benefit both sites. It is noted that the patient has a filter. Trever Askew MD
[2017-01-31] MEDS: Meropenem 500 MG in Sodium Chloride 0.9% 50 ML IVPB SCH ×3 (06:22→21:14)
[2017-01-31] MEDS: Vancomycin 1gm in NS 250ml 1 GM/250 ML BAG IVPB SCH ×2 (06:24→20:01)
[2017-01-31] MEDS: Pantoprazole 40 mg EC Tab PO SCH (08:36)
--- NOTE | 2017-01-31 08:39 | CP.PCM.PN ---
Subjective - Date & Time of Evaluation Date of Evaluation: 01/31/17 Time of Evaluation: 10:34 - Subjective Subjective: Surgery Progress note. Dr. Askew Pt seen and examined at bedside. No acute events overnight. No N/V. No F/C. No CP/SOB. No abdominal pain. Patient denies any new complaints. Objective - Vital Signs/Intake and Output Vital Signs (last 24 hours): Temp Pulse Resp BP Pulse Ox 98.3 F 70 20 115/72 96 01/31/17 08:14 01/31/17 08:14 01/31/17 08:14 01/31/17 08:14 01/31/17 08:14 Intake and Output: 01/31/17 01/31/17 06:59 18:59 Intake Total 720 Output Total 500 Balance 220 - Medications Medications: Current Medications Baclofen (Lioresal) 20 mg PO TID [facility] Last Admin: 01/30/17 18:50 Dose: 20 mg Enoxaparin Sodium (Lovenox) 100 mg SC Q12 [facility] PRN Reason: Protocol Last Admin: 01/30/17 21:29 Dose: 100 mg Gabapentin (Neurontin) 300 mg PO TID [facility] PRN Reason: Protocol Last Admin: 01/30/17 18:50 Dose: 300 mg Vancomycin HCl (Vancomycin 1gm) 1 gm in 250 mls @ 167 mls/hr IVPB Q12H [facility] PRN Reason: Protocol Last Admin: 01/31/17 06:24 Dose: 167 mls/hr Meropenem 500 mg/ Sodium (Chloride) 50 mls @ 100 mls/hr IVPB Q8 [facility]AL PRN Reason: Protocol Stop: 02/03/17 16:16 Last Admin: 01/31/17 06:22 Dose: 100 mls/hr Pantoprazole Sodium (Protonix Ec Tab) 40 mg PO ACB [facility] Last Admin: 01/31/17 08:36 Dose: 40 mg - Labs Labs: 01/30/17 07:26 01/30/17 07:26 PT 20.0 SECONDS (9.4-12.5) H 01/30/17 16:21 INR 1.81 (0.93-1.08) H 01/30/17 16:21 APTT 35.7 Seconds (25.1-36.5) 01/27/17 14:30 - Constitutional Appears: Well, No Acute Distress - Head Exam Head Exam: ATRAUMATIC, NORMAL INSPECTION, NORMOCEPHALIC - Eye Exam Eye Exam: EOMI - ENT Exam ENT Exam: Mucous Membranes Moist - Respiratory Exam Respiratory Exam: Clear to Ausculation Bilateral, NORMAL BREATHING PATTERN. absent: Wheezes, Respiratory Distress - Cardiovascular Exam Cardiovascular Exam: RRR. absent: JVD - GI/Abdominal Exam GI & Abdominal Exam: Soft. absent: Guarding, Rigid, Tenderness - Rectal Exam Additional comments: Sacral wound: active draining tract noted. Foul smelling cream/brown fluid noted. No bleeding. no tenderness. - Neurological Exam Neurological Exam: Alert, Awake, Oriented x3 - Psychiatric Exam Psychiatric exam: Normal Affect, Normal Mood Assessment and Plan - Assessment and Plan (Free Text) Assessment: 51yo M with PMHx of spinal abscess resulting in paraplegia, here with left heel wound and sacral wound. - f/u Podiatry recs for heel wound - Reinforce sacral wound dressing as needed - Continue Abx. Needs long-term abx - Plan for sacral wound debridement Thursday or Thursday - Hold Lovenox - Repeat INR in the AM Further recs as per Dr. Azar Cash PGY1 surgery pager: [phone]
--- NOTE | 2017-01-31 10:28 | CP.PCM.PN ---
<Luis Elizabeth - Last Filed: 01/31/17 10:17> Subjective - Date & Time of Evaluation Date of Evaluation: 01/31/17 Time of Evaluation: 10:17 - Subjective Subjective: Podiatry Progress Note - Dr. Mojica 51 year old male patient seen at bedside concerning left heel decubitus ulceration. Patient denies any acute events overnight. Patient offers no pedal complaints to bilateral lower extremity today. Patient denies N/V/F/D/C/SOB/ calf pain. Objective - Vital Signs/Intake and Output Vital Signs (last 24 hours): Temp Pulse Resp BP Pulse Ox 98.3 F 70 20 115/72 96 01/31/17 08:14 01/31/17 08:14 01/31/17 08:14 01/31/17 08:14 01/31/17 08:14 Intake and Output: 01/31/17 01/31/17 06:59 18:59 Intake Total 720 Output Total 500 Balance 220 - Medications Medications: Current Medications Baclofen (Lioresal) 20 mg PO TID [facility] Last Admin: 01/31/17 10:11 Dose: 20 mg Enoxaparin Sodium (Lovenox) 100 mg SC Q12 [facility] PRN Reason: Protocol Last Admin: 01/30/17 21:29 Dose: 100 mg Gabapentin (Neurontin) 300 mg PO TID [facility] PRN Reason: Protocol Last Admin: 01/31/17 10:11 Dose: 300 mg Vancomycin HCl (Vancomycin 1gm) 1 gm in 250 mls @ 167 mls/hr IVPB Q12H [facility] PRN Reason: Protocol Last Admin: 01/31/17 06:24 Dose: 167 mls/hr Meropenem 500 mg/ Sodium (Chloride) 50 mls @ 100 mls/hr IVPB Q8 [facility] PRN Reason: Protocol Stop: 02/03/17 16:16 Last Admin: 01/31/17 06:22 Dose: 100 mls/hr Pantoprazole Sodium (Protonix Ec Tab) 40 mg PO ACB [facility] Last Admin: 01/31/17 08:36 Dose: 40 mg - Labs Labs: 01/30/17 07:26 01/30/17 07:26 PT 20.0 SECONDS (9.4-12.5) H 01/30/17 16:21 INR 1.81 (0.93-1.08) H 01/30/17 16:21 APTT 35.7 Seconds (25.1-36.5) 01/27/17 14:30 - Constitutional Appears: Well, Non-toxic, No Acute Distress - Extremities Exam Additional comments: LE focused examination: Vasc: DP/PT pulses palpable 2/4 B/L. Temperature gradient warm to warm b/l. CFT < 3 sec to all digits. Mild non-pitting edema localized to L heel. Neuro: Protective sensation grossly diminished B/L Derm: L posteromedial heel exhibits circular 2.5cm diameter ulceration with 100 % fibrotic base that probes down to calcaneal bone and is boggy in nature. Kathy- wound area exhibits sloughed skin with mild erythema. Additional 1.5cm x 0.8cm x 0.1cm superficial ulceration noted to posterior heel with fibrotic base, no malodor, no fluctuance, no undermining, no probe to bone Ortho: Involuntary muscle spasms noted to B/L LE, L>R. No tenderness to palpation of L heel at site of ulcerations - Neurological Exam Neurological Exam: Alert, Awake, Oriented x3 - Psychiatric Exam Psychiatric exam: Normal Affect, Normal Mood Assessment and Plan - Assessment and Plan (Free Text) Assessment: 51 y/o paraplegic male with left heel pressure ulceration that probes to bone. Likely clinical osteomyelitis despite negative x-ray and MRI results for radiographic OM changes Plan: Pt seen and evaluated at bedside with attending, Dr. Mojica Labs and vitals reviewed - afebrile X-rays of L heel are negative for erosive cortical changes, no fractures or dislocations MRI reveals no erosive cortical changes, no marrow edema, no signs of osteomyelitis Wound cx of L heel posteromedial wound reveals growth of Corynebacterium species Per ID, continue Vancomycin and Merrem pending final cx results PICC line in place to R arm Left heel ulceration excisionally debrided - upon removal of fibrous cap to healthy bleeding tissue Optifoam applied to L heel Continue multipodus boots to bilateral lower extremity Podiatry will continue to follow patient while in house <Adair Mojica - Last Filed: 02/04/17 10:10> Objective - Vital Signs/Intake and Output Vital Signs (last 24 hours): Temp Pulse Resp BP Pulse Ox 98.3 F 67 18 109/62 98 02/04/17 07:30 02/04/17 07:30 02/04/17 07:30 02/04/17 07:30 02/04/17 07:30 Intake and Output: 02/04/17 02/04/17 06:59 18:59 Intake Total 300 Output Total 100 Balance 200 - Medications Medications: Current Medications Baclofen (Lioresal) 20 mg PO TID [facility] Last Admin: 02/03/17 18:18 Dose: 20 mg Enoxaparin Sodium (Lovenox) 100 mg SC Q12 [facility] PRN Reason: Protocol Last Admin: 02/03/17 21:44 Dose: 100 mg Gabapentin (Neurontin) 300 mg PO TID [facility] PRN Reason: Protocol Last Admin: 02/03/17 18:19 Dose: 300 mg Vancomycin HCl (Vancomycin 1gm) 1 gm in 250 mls @ 167 mls/hr IVPB Q12H [facility] PRN Reason: Protocol Last Admin: 02/04/17 06:45 Dose: 167 mls/hr Sodium Chloride (Sodium Chloride 0.9%) 1,000 mls @ 100 mls/hr IV .Q10H [facility] Last Admin: 02/03/17 15:43 Dose: 100 mls/hr Meropenem 1 gm/ Dextrose 100 mls @ 100 mls/hr IVPB Q8 [facility] PRN Reason: Protocol Stop: 02/11/17 14:01 Mupirocin (Bactroban Ointment) 0 gm TOP BID [facility] Last Admin: 02/03/17 18:08 Dose: Not Given Pantoprazole Sodium (Protonix Ec Tab) 40 mg PO ACB [facility] Last Admin: 02/03/17 07:46 Dose: Not Given - Labs Labs: 02/02/17 08:00 02/02/17 08:00 PT 14.5 SECONDS (9.4-12.5) H 02/02/17 08:00 INR 1.31 (0.93-1.08) H 02/02/17 08:00 APTT 32.9 Seconds (25.1-36.5) 02/02/17 08:00 Attending/Attestation - Attestation I have personally seen and examined this patient.: Yes I have fully participated in the care of the patient.: Yes I have reviewed all pertinent clinical information, including history, physical exam and plan: Yes
--- NOTE | 2017-01-31 11:11 | CON ---
DATE: 01/31/2017 REQUESTING PHYSICIAN: Tobin Piedra MD REASON FOR CONSULTATION: I have been asked to see this unfortunate 51-year-old male, paraplegic, status post spinal abscess, admitted to the hospital with left heel infection. The patient was also noted to have a large sacral abscess. I have been asked to see this patient for colonoscopy prior to the colostomy to rule out a colon lesion. In the hospital, the patient was found to have osteomyelitis of his left foot. He denies any rectal bleeding, melena, nausea, vomiting, but does state that he has been having diarrhea secondary to antibiotics. Stool for C. diff toxin has been negative. PAST MEDICAL HISTORY: Notable for spinal abscess, paraplegia, laminectomy, DVT, and hypertension. PAST SURGICAL HISTORY: Notable for laminectomy. SOCIAL HISTORY: He has not smoked or consumed alcohol in 6 months. REVIEW OF SYSTEMS: A 14-point review of systems is notable for left heel osteomyelitis, sacral decubitus, and diarrhea. PHYSICAL EXAMINATION: GENERAL: A well-developed male, paraplegic, lying in bed in no acute distress. VITAL SIGNS: Reveal temperature of 98.3, blood pressure 115/72, heart rate 70. HEENT: Reveal sclerae to be white. Conjunctivae pink. NECK: Supple. CHEST/LUNGS: Clear. HEART: Reveals regular rate and rhythm. ABDOMEN: Soft and nontender. He has a large sacral decubitus. He also has a surgical dressing on his left foot. LABORATORY DATA: Reveal white blood cell count 7.9, hemoglobin 10.3. Chemistries reveal normal electrolytes. IMPRESSION: This is a 51-year-old male, paraplegia with left heel ulcer, osteomyelitis, large sacral decubitus. I have been asked to perform colonoscopy prior to diverting colostomy. RECOMMENDATIONS: The patient is scheduled for debridement of sacral decubitus on Thursday. I will schedule the patient for colonoscopy for Thursday. Atul Allen MD
--- NOTE | 2017-01-31 11:22 | CP.PCM.PN ---
<eMkhi Simental - Last Filed: 01/31/17 11:13> Subjective - Date & Time of Evaluation Date of Evaluation: 01/31/17 Time of Evaluation: 06:00 - Subjective Subjective: Patient seen and evaluated bedside. No acute events overnight. Patient aware of plan for sacral ulcer debrediment on Thursday. Patient denies any chest pain, shortness of breath, abdominal pain, nausea, vomiting, fever chills or any other complaints. Objective - Vital Signs/Intake and Output Vital Signs (last 24 hours): Temp Pulse Resp BP Pulse Ox 98.3 F 70 20 115/72 96 01/31/17 08:14 01/31/17 08:14 01/31/17 08:14 01/31/17 08:14 01/31/17 08:14 Intake and Output: 01/31/17 01/31/17 06:59 18:59 Intake Total 720 Output Total 500 Balance 220 - Medications Medications: Current Medications Baclofen (Lioresal) 20 mg PO TID [facility] Last Admin: 01/31/17 10:11 Dose: 20 mg Enoxaparin Sodium (Lovenox) 100 mg SC Q12 [facility] PRN Reason: Protocol Last Admin: 01/30/17 21:29 Dose: 100 mg Gabapentin (Neurontin) 300 mg PO TID [facility] PRN Reason: Protocol Last Admin: 01/31/17 10:11 Dose: 300 mg Vancomycin HCl (Vancomycin 1gm) 1 gm in 250 mls @ 167 mls/hr IVPB Q12H [facility] PRN Reason: Protocol Last Admin: 01/31/17 06:24 Dose: 167 mls/hr Meropenem 500 mg/ Sodium (Chloride) 50 mls @ 100 mls/hr IVPB Q8 [facility] PRN Reason: Protocol Stop: 02/03/17 16:16 Last Admin: 01/31/17 06:22 Dose: 100 mls/hr Pantoprazole Sodium (Protonix Ec Tab) 40 mg PO ACB [facility] Last Admin: 01/31/17 08:36 Dose: 40 mg - Labs Labs: 01/30/17 07:26 01/30/17 07:26 PT 20.0 SECONDS (9.4-12.5) H 01/30/17 16:21 INR 1.81 (0.93-1.08) H 01/30/17 16:21 APTT 35.7 Seconds (25.1-36.5) 01/27/17 14:30 - Constitutional Appears: Non-toxic, No Acute Distress - Head Exam Head Exam: ATRAUMATIC, NORMAL INSPECTION, NORMOCEPHALIC - Eye Exam Eye Exam: EOMI, Normal appearance, PERRL Pupil Exam: NORMAL ACCOMODATION, PERRL - ENT Exam ENT Exam: Mucous Membranes Moist, Normal Exam - Neck Exam Neck Exam: Normal Inspection. absent: Tenderness - Respiratory Exam Respiratory Exam: Clear to Ausculation Bilateral, NORMAL BREATHING PATTERN - Cardiovascular Exam Cardiovascular Exam: REGULAR RHYTHM, +S1, +S2 - GI/Abdominal Exam GI & Abdominal Exam: Soft - Extremities Exam Additional comments: decreased motor and sensory in lower extremeties bilaterally left heel ulcer/osteomyeltis - Back Exam Additional comments: Stage 4 sacral decubitus ulcer - Neurological Exam Neurological Exam: Alert, Awake, Oriented x3 - Psychiatric Exam Psychiatric exam: Normal Affect - Skin Skin Exam: Normal Color Assessment and Plan - Assessment and Plan (Free Text) Assessment: 51 year old male parapledgic with past medical history of spinal abcess, laminectomy, DVT presents to the ED form wound care due to possible heel infection of the left foot. Patient admitted for evaluation of wound and will be treated for osteomyelitis. Plan: 1. Left heel Ulcer-Clinical Osteomyelitis -EKG ordered and obtained -Blood and wound cultures ordered, pending -Patient afebrile, no leukocytosis -continue vancomycin and meropenem, will f/u with ID -Xray of the left foot: no focal lesion, degenerative changes of tibiotalar and subtalar joints. Corticol sclerosis and osteophytes -MRI of left ankle: no evidence of osteomyelitis radiologically -probe to bone meaning clinical osteomyelitis -Podiatry Consulted: -Left heel ulceration excisionally debrided - upon removal of fibrous cap to healthy bleeding tissue -Optifoam applied to L heel -Podiatry will continue to follow patient while in house -Continue multipodus boots to bilateral lower extremity -PICC line right arm -ID consulted, Berna, will choose abx therapy once cultures return 2. Paraplegia- chronic -continue home Baclofen -PT evaluation ordered -continue home neurontin -using a haque for incontinence , haque was changed yesterday 3. History of DVT -holding coumadin -theraputic lovenox holding for debrediment procedure tomorrow -Repeat INR 4. Sacral Decubitus Ulcer -stage 4 -Abd/Pelvic CT - 5 x 4.3 CM pilonidal abscess with associated destructive changes involving the distal sacrum and portion of the coccyx, consistent with acute osteomyelitis. No rectocutaneous fistula seen. -surgery consulted, continue IV abx, Debrediment on Thursday or Thursday, will hold lovenox -Further recs per Dr. Askew regarding colostomy -GI: Allen: Colonoscopy on Thursday 5. GI/DVT Prophylaxis -sequential compression devices -Protonix home continued <Tobin Piedra - Last Filed: 01/31/17 16:54> Objective - Vital Signs/Intake and Output Vital Signs (last 24 hours): Temp Pulse Resp BP Pulse Ox 98.3 F 70 20 115/72 96 01/31/17 08:14 01/31/17 08:14 01/31/17 08:14 01/31/17 08:14 01/31/17 08:14 Intake and Output: 01/31/17 01/31/17 06:59 18:59 Intake Total 720 680 Output Total 500 600 Balance 220 80 - Medications Medications: Current Medications Baclofen (Lioresal) 20 mg PO TID [facility] Last Admin: 01/31/17 13:43 Dose: 20 mg Enoxaparin Sodium (Lovenox) 100 mg SC Q12 DONAL PRN Reason: Protocol Last Admin: 01/30/17 21:29 Dose: 100 mg Gabapentin (Neurontin) 300 mg PO TID [facility] PRN Reason: Protocol Last Admin: 01/31/17 13:43 Dose: 300 mg Vancomycin HCl (Vancomycin 1gm) 1 gm in 250 mls @ 167 mls/hr IVPB Q12H [facility] PRN Reason: Protocol Last Admin: 01/31/17 06:24 Dose: 167 mls/hr Meropenem 500 mg/ Sodium (Chloride) 50 mls @ 100 mls/hr IVPB Q8 [facility]AL PRN Reason: Protocol Stop: 02/03/17 16:16 Last Admin: 01/31/17 13:55 Dose: 100 mls/hr Pantoprazole Sodium (Protonix Ec Tab) 40 mg PO ACB [facility] Last Admin: 01/31/17 08:36 Dose: 40 mg - Labs Labs: 01/30/17 07:26 01/30/17 07:26 PT 16.5 SECONDS (9.4-12.5) H 01/31/17 14:00 INR 1.49 (0.93-1.08) H 01/31/17 14:00 APTT 35.7 Seconds (25.1-36.5) 01/27/17 14:30 Attending/Attestation - Attestation I have personally seen and examined this patient.: Yes I have fully participated in the care of the patient.: Yes I have reviewed all pertinent clinical information, including history, physical exam and plan: Yes Notes (Text): 01/31/17 16:51 Attending note; Patient seen and examined with resident. Patient is a 51 year old male with past medical history of spinal abcess, laminectomy, paraplegia,DVT is admitted with Left heel osteomyelitis. on vancomycin and meropenem. ID evaluation appreciated. Podiatry evaluation appreciated. patient needs 4-6 weeks of IV antibiotics. PICC line placed. Patient is bedridden; sacral decubitus. Surgery evaluation appreciated .CT abdomen and pelvis showed sacral osteomyelitis. case discussed with Surgery in detail. plan for debridement tomorrow. possible plan for colostomy next week. case discussed with GI Dr. Allen in detail. Plan for colonoscopy on Thursday. History of DVT; hold Lovenox before surgery. PT evaluation appreciated. Upon discharge the patient will follow-up with PMD .
[2017-01-31 14:30] LABS: INR 1.49 (0.93-1.08)
[2017-02-01] MEDS: Meropenem 500 MG in Sodium Chloride 0.9% 50 ML IVPB SCH ×3 (05:55→21:28)
[2017-02-01] MEDS: Vancomycin 1gm in NS 250ml 1 GM/250 ML BAG IVPB SCH ×2 (05:57→19:54)
[2017-02-01 06:21] LABS: INR 1.43 (0.93-1.08)
[2017-02-01 09:59] LABS: BASO # 0.02 K/mm3 (0.0-2.0); BASO % 0.2 % (0.0-3.0); EOS # 0.2 (0.0-0.7); GRAN # 5.76 (1.4-6.5); GRAN % 70.8 % (50.0-68.0); HEMATOCRIT 31.7 % (42.0-52.0); LYMPH # 1.6 (1.2-3.4); LYMPH % 19.9 % (22.0-35.0); MEAN CELL VOLUME 84.3 fl (80.0-105.0); MEAN CORPUSCULAR HEMOGLOBIN 26.6 pg (25.0-35.0); MEAN CORPUSCULAR HGB CONC 31.5 g/dl (31.0-37.0); MEAN PLATELET VOLUME 11.1 fl (7.0-11.0); MONO # 0.6 (0.1-0.6); MONO % 7.1 % (1.0-6.0); RED CELL DISTRIBUTION WIDTH 14.9 % (11.5-14.5); WHITE BLOOD COUNT 8.1 10^3/ul (4.5-11.0)
[2017-02-01 10:08] LABS: ALB/GLOB RATIO 0.8 (1.1-1.8); ALKALINE PHOSPHATASE 81 U/L (38-126); ALT/SGPT 49 U/L (7-56); AST/SGOT 30 U/L (17-59); BILIRUBIN,TOTAL 0.4 mg/dL (0.2-1.3); BLOOD UREA NITROGEN 13 mg/dL (7-21); CALCIUM 9.5 mg/dL (8.4-10.5); CARBON DIOXIDE 29 mmol/L (21-33); CHLORIDE 104 mmol/L (98-107); GFR AFRICAN-AMERICAN > 60; GLUCOSE,RANDOM 95 mg/dL (70-110); POTASSIUM 3.8 mmol/L (3.6-5.0); SODIUM 142 mmol/L (132-148); TOTAL PROTEIN 7.6 g/dL (5.8-8.3)
--- NOTE | 2017-02-01 11:01 | CP.PCM.PN ---
<Mekhi Simental - Last Filed: 02/01/17 18:03> Subjective - Date & Time of Evaluation Date of Evaluation: 02/01/17 Time of Evaluation: 06:00 - Subjective Subjective: Patient seen and evaluated bedside. Patient was sleeping and awaken. No acute events overnight. Patient aware of plan for sacral ulcer debrediment and eventual colonoscopy . Patient denies any chest pain, shortness of breath, abdominal pain, nausea, vomiting, fever chills or any other complaints. Objective - Vital Signs/Intake and Output Vital Signs (last 24 hours): Temp Pulse Resp BP Pulse Ox 98.6 F 65 20 119/71 97 02/01/17 07:43 02/01/17 07:43 02/01/17 07:43 02/01/17 07:43 02/01/17 07:43 Intake and Output: 02/01/17 02/01/17 06:59 18:59 Intake Total Output Total Balance - Medications Medications: Current Medications Baclofen (Lioresal) 20 mg PO TID [facility] Last Admin: 02/01/17 09:45 Dose: 20 mg Enoxaparin Sodium (Lovenox) 100 mg SC Q12 DONAL PRN Reason: Protocol Last Admin: 01/30/17 21:29 Dose: 100 mg Gabapentin (Neurontin) 300 mg PO TID [facility] PRN Reason: Protocol Last Admin: 02/01/17 09:45 Dose: 300 mg Vancomycin HCl (Vancomycin 1gm) 1 gm in 250 mls @ 167 mls/hr IVPB Q12H [facility] PRN Reason: Protocol Last Admin: 02/01/17 05:57 Dose: 167 mls/hr Meropenem 500 mg/ Sodium (Chloride) 50 mls @ 100 mls/hr IVPB Q8 [facility] PRN Reason: Protocol Stop: 02/03/17 16:16 Last Admin: 02/01/17 05:55 Dose: 100 mls/hr Pantoprazole Sodium (Protonix Ec Tab) 40 mg PO ACB [facility] Last Admin: 01/31/17 08:36 Dose: 40 mg - Labs Labs: 02/01/17 09:54 02/01/17 09:54 PT 15.9 SECONDS (9.4-12.5) H 02/01/17 06:00 INR 1.43 (0.93-1.08) H 02/01/17 06:00 APTT 35.7 Seconds (25.1-36.5) 01/27/17 14:30 - Constitutional Appears: Non-toxic, No Acute Distress - Head Exam Head Exam: ATRAUMATIC, NORMAL INSPECTION, NORMOCEPHALIC - Eye Exam Eye Exam: EOMI, Normal appearance, PERRL Pupil Exam: NORMAL ACCOMODATION, PERRL - ENT Exam ENT Exam: Normal Exam - Neck Exam Neck Exam: Normal Inspection. absent: Tenderness, Thyromegaly - Respiratory Exam Respiratory Exam: Clear to Ausculation Bilateral, NORMAL BREATHING PATTERN - Cardiovascular Exam Cardiovascular Exam: REGULAR RHYTHM, +S1, +S2 - GI/Abdominal Exam GI & Abdominal Exam: Normal Bowel Sounds - Extremities Exam Additional comments: ulcers with dressing on left heel decreased motor and sensory lower extremity bilaterally - Back Exam Additional comments: stage 4 sacral decubitus ulcer - Neurological Exam Neurological Exam: Alert, Awake, Oriented x3 - Psychiatric Exam Psychiatric exam: Normal Affect - Skin Skin Exam: Normal Color Assessment and Plan - Assessment and Plan (Free Text) Assessment: 51 year old male parapledgic with past medical history of spinal abcess, laminectomy, DVT presents to the ED form wound care due to possible heel infection of the left foot. Patient admitted for evaluation of wound and is being treated for osteomyelitis. Plan: 1. Left heel Ulcer-Clinical Osteomyelitis -EKG ordered and obtained -Blood and wound cultures ordered, pending -Patient afebrile, no leukocytosis -continue vancomycin and meropenem, will f/u with ID -Xray of the left foot: no focal lesion, degenerative changes of tibiotalar and subtalar joints. Corticol sclerosis and osteophytes -MRI of left ankle: no evidence of osteomyelitis radiologically -probe to bone meaning clinical osteomyelitis -Podiatry Consulted, follow recs -Podiatry will continue to follow patient while in house -Continue multipodus boots to bilateral lower extremity -PICC line right arm -ID consulted, Berna, will choose abx therapy once cultures return 2. Paraplegia- chronic -continue home Baclofen -PT evaluation ordered -continue home neurontin -using a haque for incontinence, haque in tact 3. History of DVT -holding coumadin -theraputic lovenox holding for debrediment procedure tomorrow -Repeat INR 4. Sacral Decubitus Ulcer -stage 4 -Abd/Pelvic CT - 5 x 4.3 CM pilonidal abscess with associated destructive changes involving the distal sacrum and portion of the coccyx, consistent with acute osteomyelitis. No rectocutaneous fistula seen. -surgery consulted, continue IV abx, Debrediment Thursday, will hold lovenox -Further recs per Dr. Askew regarding colostomy -GI: Allen: Colonoscopy on Thursday. GI/DVT Prophylaxis -sequential compression devices -Protonix home continued <Tobin Piedra - Last Filed: 02/09/17 17:16> Objective - Vital Signs/Intake and Output Vital Signs (last 24 hours): Temp Pulse Resp BP Pulse Ox 98.4 F 63 20 128/74 98 02/09/17 12:00 02/09/17 14:00 02/09/17 12:00 02/09/17 12:00 02/09/17 06:00 Intake and Output: 02/09/17 02/09/17 06:59 18:59 Intake Total 570 Output Total 2300 Balance -1730 - Medications Medications: Current Medications Ascorbic Acid (Vitamin C 500 Mg Tab) 500 mg PO DAILY [facility] Last Admin: 02/09/17 08:59 Dose: 500 mg Baclofen (Lioresal) 20 mg PO TID [facility] Last Admin: 02/09/17 13:54 Dose: 20 mg Enoxaparin Sodium (Lovenox) 100 mg SC 0000,1200 [facility]AL PRN Reason: Protocol Last Admin: 02/09/17 12:24 Dose: 100 mg Gabapentin (Neurontin) 300 mg PO TID [facility] PRN Reason: Protocol Last Admin: 02/09/17 17:11 Dose: 300 mg Hydromorphone HCl (Dilaudid) 0.5 mg IVP Q3H PRN PRN Reason: Pain, moderate (4-7) Last Admin: 02/09/17 17:10 Dose: 0.5 mg Vancomycin HCl (Vancomycin 1gm) 1 gm in 250 mls @ 167 mls/hr IVPB Q12H DONAL PRN Reason: Protocol Last Admin: 02/09/17 17:09 Dose: 167 mls/hr Meropenem 1 gm/ Dextrose 100 mls @ 100 mls/hr IVPB Q8 [facility]AL PRN Reason: Protocol Stop: 02/11/17 14:01 Last Admin: 02/09/17 13:54 Dose: 100 mls/hr Mupirocin (Bactroban Ointment) 0 gm TOP BID [facility] Last Admin: 02/09/17 09:27 Dose: Not Given Pantoprazole Sodium (Protonix Ec Tab) 40 mg PO ACB [facility] Last Admin: 02/09/17 09:00 Dose: 40 mg Zinc Sulfate (Zinc Sulfate 220 Mg Cap) 220 mg PO DAILY [facility] Last Admin: 02/09/17 09:00 Dose: 220 mg - Labs Labs: 02/09/17 05:40 02/09/17 05:40 PT 13.1 SECONDS (9.4-12.5) H 02/09/17 05:40 INR 1.19 (0.93-1.08) H 02/09/17 05:40 APTT 34.9 Seconds (25.1-36.5) 02/09/17 05:40 Attending/Attestation - Attestation I have personally seen and examined this patient.: Yes I have fully participated in the care of the patient.: Yes I have reviewed all pertinent clinical information, including history, physical exam and plan: Yes Notes (Text): 02/09/17 17:16 Attending note; Patient seen and examined with resident. Patient is a 51 year old male with past medical history of spinal abcess, laminectomy, paraplegia,DVT is admitted with Left heel osteomyelitis. on vancomycin and meropenem. ID evaluation appreciated. Podiatry evaluation appreciated. patient needs 4-6 weeks of IV antibiotics. PICC line placed. Patient is bedridden; sacral decubitus. Surgery evaluation appreciated .CT abdomen and pelvis showed sacral osteomyelitis. case discussed with Surgery in detail. plan for debridement tomorrow. possible plan for colostomy next week. case discussed with GI Dr. Allen in detail. Plan for colonoscopy on Thursday. History of DVT; hold Lovenox before surgery. PT evaluation appreciated. Upon discharge the patient will follow-up with PMD .
--- NOTE | 2017-02-01 12:56 | CP.PCM.PN ---
Subjective - Date & Time of Evaluation Date of Evaluation: 02/01/17 Time of Evaluation: 12:05 - Subjective Subjective: Comfortable in bed, no fevers. No diarrhea, no nausea. Objective - Vital Signs/Intake and Output Vital Signs (last 24 hours): Temp Pulse Resp BP Pulse Ox 98.6 F 65 20 119/71 97 02/01/17 07:43 02/01/17 07:43 02/01/17 07:43 02/01/17 07:43 02/01/17 07:43 Intake and Output: 02/01/17 02/01/17 06:59 18:59 Intake Total Output Total Balance - Medications Medications: Current Medications Baclofen (Lioresal) 20 mg PO TID [facility] Last Admin: 02/01/17 09:45 Dose: 20 mg Enoxaparin Sodium (Lovenox) 100 mg SC Q12 DONAL PRN Reason: Protocol Last Admin: 01/30/17 21:29 Dose: 100 mg Gabapentin (Neurontin) 300 mg PO TID [facility] PRN Reason: Protocol Last Admin: 02/01/17 09:45 Dose: 300 mg Vancomycin HCl (Vancomycin 1gm) 1 gm in 250 mls @ 167 mls/hr IVPB Q12H [facility]AL PRN Reason: Protocol Last Admin: 02/01/17 05:57 Dose: 167 mls/hr Meropenem 500 mg/ Sodium (Chloride) 50 mls @ 100 mls/hr IVPB Q8 [facility]AL PRN Reason: Protocol Stop: 02/03/17 16:16 Last Admin: 02/01/17 05:55 Dose: 100 mls/hr Pantoprazole Sodium (Protonix Ec Tab) 40 mg PO ACB [facility] Last Admin: 01/31/17 08:36 Dose: 40 mg - Labs Labs: 02/01/17 09:54 01/30/17 07:26 PT 15.9 SECONDS (9.4-12.5) H 02/01/17 06:00 INR 1.43 (0.93-1.08) H 02/01/17 06:00 APTT 35.7 Seconds (25.1-36.5) 01/27/17 14:30 - Constitutional Appears: Non-toxic - Head Exam Head Exam: NORMAL INSPECTION - ENT Exam ENT Exam: Mucous Membranes Moist - Neck Exam Neck Exam: absent: Lymphadenopathy, Meningismus - Respiratory Exam Respiratory Exam: Decreased Breath Sounds - Cardiovascular Exam Cardiovascular Exam: +S1, +S2 - GI/Abdominal Exam GI & Abdominal Exam: Soft. absent: Tenderness Assessment and Plan - Assessment and Plan (Free Text) Plan: Assessment Pilonidal abscess and sacral decubitus infection / osteomyelitis as well as left heel ulcer infection history of epidural abscess secondary to Strep pneumoniae with associated cord compression and lower extremity paralysis and neurogenic bladder S/P neurosurgery for abscess drainage and laminectomy history of partial small bowel obstruction significant smoking history alcohol abuse obesity with BMI 40 Plan continue Vancomycin and Merrem ; wound cx only growing Corynebacterium but is more likely superficial swab - aim for 4-6 weeks of antibiotics with weekly ESR , CRP, CBC, CMP while on antibiotics; will get Vanco trough before next dose will monitor clinically
[2017-02-01] MEDS: Pantoprazole 40 mg EC Tab PO SCH (13:35)
--- NOTE | 2017-02-01 13:58 | CP.PCM.PN ---
<Luis Elizabeth - Last Filed: 02/01/17 13:55> Subjective - Date & Time of Evaluation Date of Evaluation: 02/01/17 Time of Evaluation: 13:55 - Subjective Subjective: Podiatry Progress Note - Dr. Jalloh 51 year old male patient seen at bedside concerning left heel decubitus ulceration. Patient wearing multipodus boots at time of visit. Patient denies any acute events overnight. Patient offers no pedal complaints to bilateral lower extremity today. Patient denies N/V/F/D/C/SOB/calf pain. Objective - Vital Signs/Intake and Output Vital Signs (last 24 hours): Temp Pulse Resp BP Pulse Ox 98.6 F 65 20 119/71 97 02/01/17 07:43 02/01/17 07:43 02/01/17 07:43 02/01/17 07:43 02/01/17 07:43 Intake and Output: 02/01/17 02/01/17 06:59 18:59 Intake Total 600 Output Total 800 Balance -200 - Medications Medications: Current Medications Baclofen (Lioresal) 20 mg PO TID [facility] Last Admin: 02/01/17 13:34 Dose: 20 mg Enoxaparin Sodium (Lovenox) 100 mg SC Q12 [facility] PRN Reason: Protocol Last Admin: 01/30/17 21:29 Dose: 100 mg Gabapentin (Neurontin) 300 mg PO TID [facility] PRN Reason: Protocol Last Admin: 02/01/17 13:34 Dose: 300 mg Vancomycin HCl (Vancomycin 1gm) 1 gm in 250 mls @ 167 mls/hr IVPB Q12H [facility] PRN Reason: Protocol Last Admin: 02/01/17 05:57 Dose: 167 mls/hr Meropenem 500 mg/ Sodium (Chloride) 50 mls @ 100 mls/hr IVPB Q8 [facility] PRN Reason: Protocol Stop: 02/03/17 16:16 Last Admin: 02/01/17 13:33 Dose: 100 mls/hr Pantoprazole Sodium (Protonix Ec Tab) 40 mg PO ACB [facility] Last Admin: 02/01/17 13:35 Dose: 40 mg - Labs Labs: 02/01/17 09:54 02/01/17 09:54 PT 15.9 SECONDS (9.4-12.5) H 02/01/17 06:00 INR 1.43 (0.93-1.08) H 02/01/17 06:00 APTT 35.7 Seconds (25.1-36.5) 01/27/17 14:30 - Constitutional Appears: Well, Non-toxic, No Acute Distress - Extremities Exam Additional comments: LE focused examination: Vasc: DP/PT pulses palpable 2/4 B/L. Temperature gradient warm to warm b/l. CFT < 3 sec to all digits. Mild non-pitting edema localized to L heel. Neuro: Protective sensation grossly diminished B/L Derm: L posteromedial heel exhibits circular 2.5cm diameter ulceration with 25% fibrotic and 75% granular base that is boggy in nature. Sanguinous drainaged noted. (+)Probe to bone. Erythema noted periwound. Additional 1.5cm x 0.8cm x 0.1cm superficial ulceration noted to posterior heel with fibrotic base, no malodor, no fluctuance, no undermining, no probe to bone Ortho: Involuntary muscle spasms noted to B/L LE, L>R. No tenderness to palpation of L heel at site of ulcerations - Neurological Exam Neurological Exam: Alert, Awake, Oriented x3 - Psychiatric Exam Psychiatric exam: Normal Affect, Normal Mood Assessment and Plan - Assessment and Plan (Free Text) Assessment: 51 y/o paraplegic male with left heel pressure ulceration that probes to bone. Likely clinical osteomyelitis despite negative x-ray and MRI results for radiographic OM changes Plan: Patient seen and evaluated at bedside Discussed with attending, Dr. Jalloh Labs and vitals reviewed = WBC 8.1, afebrile (Tmax 98.8) X-rays of L heel are negative for erosive cortical changes, no fractures or dislocations MRI reveals no erosive cortical changes, no marrow edema, no signs of osteomyelitis Left heel wound culture final report = Corynebacterium species Per ID, continue Vancomycin and Merrem; wound cx only growing Corynebacterium but is more likely superficial swab - aim for 4-6 weeks of antibiotics PICC line in place to R arm Optifoam applied to L heel Continue multipodus boots to bilateral lower extremity Podiatry will continue to follow patient while in house <Patricia Jalloh - Last Filed: 02/08/17 13:34> Objective - Vital Signs/Intake and Output Vital Signs (last 24 hours): Temp Pulse Resp BP Pulse Ox 97.7 F 62 20 114/63 98 02/08/17 11:44 02/08/17 11:44 02/08/17 11:44 02/08/17 11:44 02/08/17 05:42 Intake and Output: 02/08/17 02/08/17 06:59 18:59 Intake Total 1350 Balance 1350 - Medications Medications: Current Medications Ascorbic Acid (Vitamin C 500 Mg Tab) 500 mg PO DAILY [facility] Last Admin: 02/08/17 10:04 Dose: 500 mg Baclofen (Lioresal) 20 mg PO TID [facility] Last Admin: 02/08/17 13:09 Dose: 20 mg Enoxaparin Sodium (Lovenox) 100 mg SC 0000,1200 [facility] PRN Reason: Protocol Last Admin: 02/08/17 13:07 Dose: 100 mg Gabapentin (Neurontin) 300 mg PO TID [facility] PRN Reason: Protocol Last Admin: 02/08/17 13:31 Dose: 300 mg Hydromorphone HCl (Dilaudid) 0.5 mg IVP Q3H PRN PRN Reason: Pain, moderate (4-7) Last Admin: 02/08/17 10:37 Dose: 0.5 mg Vancomycin HCl (Vancomycin 1gm) 1 gm in 250 mls @ 167 mls/hr IVPB Q12H [facility] PRN Reason: Protocol Last Admin: 02/08/17 05:14 Dose: 167 mls/hr Meropenem 1 gm/ Dextrose 100 mls @ 100 mls/hr IVPB Q8 [facility] PRN Reason: Protocol Stop: 02/11/17 14:01 Last Admin: 02/08/17 13:09 Dose: 100 mls/hr Mupirocin (Bactroban Ointment) 0 gm TOP BID [facility] Last Admin: 02/08/17 10:04 Dose: Not Given Pantoprazole Sodium (Protonix Ec Tab) 40 mg PO ACB [facility] Last Admin: 02/08/17 08:57 Dose: 40 mg Zinc Sulfate (Zinc Sulfate 220 Mg Cap) 220 mg PO DAILY [facility] Last Admin: 02/08/17 10:05 Dose: 220 mg - Labs Labs: 02/08/17 06:15 02/08/17 06:15 PT 14.2 SECONDS (9.4-12.5) H 02/08/17 06:15 INR 1.28 (0.93-1.08) H 02/08/17 06:15 APTT 35.7 Seconds (25.1-36.5) 02/08/17 06:15 Attending/Attestation - Attestation I have personally seen and examined this patient.: Yes I have fully participated in the care of the patient.: Yes I have reviewed all pertinent clinical information, including history, physical exam and plan: Yes
[2017-02-01 15:51] LABS: INR 1.43 (0.93-1.08)
[2017-02-01] MEDS ORDERED: Sodium Chloride 0.9% 100 ML IV SCH (21:15)
--- NOTE | 2017-02-01 22:06 | CP.PCM.PN ---
Subjective - Date & Time of Evaluation Date of Evaluation: 02/01/17 Time of Evaluation: 08:00 - Subjective Subjective: General Surgery progress Note for Dr. Askew This patient was seen and examine dthis Am at bedside no acut events overnight. He denies any chest pain fevers chills nausea vomiting. He still has copious watery stools. Objective - Vital Signs/Intake and Output Vital Signs (last 24 hours): Temp Pulse Resp BP Pulse Ox 98.6 F 21 L 18 116/79 98 02/01/17 16:40 02/01/17 16:40 02/01/17 16:40 02/01/17 16:40 02/01/17 16:40 Intake and Output: 02/01/17 02/02/17 18:59 06:59 Intake Total 600 Output Total 800 Balance -200 - Medications Medications: Current Medications Baclofen (Lioresal) 20 mg PO TID [facility] Last Admin: 02/01/17 17:17 Dose: 20 mg Enoxaparin Sodium (Lovenox) 100 mg SC Q12 DONAL PRN Reason: Protocol Last Admin: 01/30/17 21:29 Dose: 100 mg Gabapentin (Neurontin) 300 mg PO TID DONAL PRN Reason: Protocol Last Admin: 02/01/17 17:17 Dose: 300 mg Vancomycin HCl (Vancomycin 1gm) 1 gm in 250 mls @ 167 mls/hr IVPB Q12H DONAL PRN Reason: Protocol Last Admin: 02/01/17 19:54 Dose: 167 mls/hr Meropenem 500 mg/ Sodium (Chloride) 50 mls @ 100 mls/hr IVPB Q8 DONAL PRN Reason: Protocol Stop: 02/03/17 16:16 Last Admin: 02/01/17 21:28 Dose: 100 mls/hr Sodium Chloride (Sodium Chloride 0.9%) 100 mls @ 150 mls/hr IV .Q40M DONAL Pantoprazole Sodium (Protonix Ec Tab) 40 mg PO ACB DONAL Last Admin: 02/01/17 13:35 Dose: 40 mg - Labs Labs: 02/01/17 09:54 02/01/17 09:54 PT 15.7 SECONDS (9.4-12.5) H 02/01/17 15:05 INR 1.43 (0.93-1.08) H 02/01/17 15:05 APTT 35.7 Seconds (25.1-36.5) 01/27/17 14:30 - Constitutional Appears: Non-toxic, No Acute Distress - Head Exam Head Exam: NORMAL INSPECTION - Eye Exam Eye Exam: EOMI, Normal appearance - Respiratory Exam Respiratory Exam: NORMAL BREATHING PATTERN - Cardiovascular Exam Cardiovascular Exam: REGULAR RHYTHM - GI/Abdominal Exam GI & Abdominal Exam: Soft. absent: Tenderness - Back Exam Additional comments: Wound with pink edges irrigated at bedside. - Neurological Exam Neurological Exam: Alert, Awake - Psychiatric Exam Psychiatric exam: Normal Affect, Normal Mood Assessment and Plan - Assessment and Plan (Free Text) Assessment: 51 parapalegic male with sacral ulcer OR tomorrow for debridment NPO after midnight Hold lovenox Hold coumadin IVF plan for colostomy later this week Discussed with Dr. Azar Shah PGY2
[2017-02-02] MEDS: Meropenem 500 MG in Sodium Chloride 0.9% 50 ML IVPB SCH ×3 (05:57→21:25)
[2017-02-02] MEDS: Vancomycin 1gm in NS 250ml 1 GM/250 ML BAG IVPB SCH ×2 (05:59→18:35)
[2017-02-02] MEDS: Pantoprazole 40 mg EC Tab PO SCH (06:29)
[2017-02-02 08:21] LABS: BASO # 0.02 K/mm3 (0.0-2.0); BASO % 0.3 % (0.0-3.0); EOS # 0.2 (0.0-0.7); GRAN # 5.57 (1.4-6.5); HEMATOCRIT 31.8 % (42.0-52.0); LYMPH # 1.4 (1.2-3.4); MEAN CELL VOLUME 83.7 fl (80.0-105.0); MEAN CORPUSCULAR HEMOGLOBIN 27.1 pg (25.0-35.0); MEAN CORPUSCULAR HGB CONC 32.4 g/dl (31.0-37.0); MEAN PLATELET VOLUME 10.8 fl (7.0-11.0); MONO # 0.5 (0.1-0.6); MONO % 6.7 % (1.0-6.0); RED CELL DISTRIBUTION WIDTH 14.8 % (11.5-14.5); WHITE BLOOD COUNT 7.6 10^3/ul (4.5-11.0)
[2017-02-02 08:25] LABS: BLOOD UREA NITROGEN 15 mg/dL (7-21); CALCIUM 9.7 mg/dL (8.4-10.5); CARBON DIOXIDE 30 mmol/L (21-33); CHLORIDE 104 mmol/L (98-107); GFR AFRICAN-AMERICAN > 60; GLUCOSE,RANDOM 96 mg/dL (70-110); POTASSIUM 3.9 mmol/L (3.6-5.0); SODIUM 141 mmol/L (132-148)
[2017-02-02 08:37] LABS: INR 1.31 (0.93-1.08); PARTIAL THROMBOPLASTIN TIME 32.9 Seconds (25.1-36.5)
[2017-02-02] MEDS ORDERED: Peg-Electrolyte Oral Soln 4L (Golytely) PO ONE (11:02)
--- NOTE | 2017-02-02 11:02 | CP.PCM.PN ---
<Xiomara Canales - Last Filed: 02/02/17 11:11> Subjective - Date & Time of Evaluation Date of Evaluation: 02/02/17 Time of Evaluation: 10:59 - Subjective Subjective: 51 y/o paraplegic male seen at bedside this morning with attending Dr. Jalloh. Pt states he is feeling fine and denies any acute events overnight. Pt is unsure if he will be going to the OR for sacral wound debridement today or tomorrow. Pt is resting comfortably in bed at time of visit. Pt denies F/C/N/V/ CP/SOB. Offloading boots intact to B/L heels at time of visit. Objective - Vital Signs/Intake and Output Vital Signs (last 24 hours): Temp Pulse Resp BP Pulse Ox 97.6 F 59 L 18 113/61 99 02/02/17 08:30 02/02/17 08:30 02/02/17 08:30 02/02/17 08:30 02/02/17 08:30 Intake and Output: 02/02/17 02/02/17 06:59 18:59 Intake Total 520 Output Total 1800 Balance -1280 - Medications Medications: Current Medications Baclofen (Lioresal) 20 mg PO TID [facility] Last Admin: 02/02/17 09:43 Dose: 20 mg Enoxaparin Sodium (Lovenox) 100 mg SC Q12 DONAL PRN Reason: Protocol Last Admin: 01/30/17 21:29 Dose: 100 mg Gabapentin (Neurontin) 300 mg PO TID DONAL PRN Reason: Protocol Last Admin: 02/02/17 09:43 Dose: 300 mg Vancomycin HCl (Vancomycin 1gm) 1 gm in 250 mls @ 167 mls/hr IVPB Q12H DONAL PRN Reason: Protocol Last Admin: 02/02/17 05:59 Dose: 167 mls/hr Meropenem 500 mg/ Sodium (Chloride) 50 mls @ 100 mls/hr IVPB Q8 DONAL PRN Reason: Protocol Stop: 02/03/17 16:16 Last Admin: 02/02/17 05:57 Dose: 100 mls/hr Sodium Chloride (Sodium Chloride 0.9%) 100 mls @ 150 mls/hr IV .Q40M [facility] Last Admin: 02/02/17 06:24 Dose: 150 mls/hr Pantoprazole Sodium (Protonix Ec Tab) 40 mg PO ACB DONAL Last Admin: 02/02/17 06:29 Dose: 40 mg - Labs Labs: 02/02/17 08:00 02/02/17 08:00 PT 14.5 SECONDS (9.4-12.5) H 02/02/17 08:00 INR 1.31 (0.93-1.08) H 02/02/17 08:00 APTT 32.9 Seconds (25.1-36.5) 02/02/17 08:00 - Constitutional Appears: Well, Non-toxic, No Acute Distress - Extremities Exam Additional comments: LE focused examination: Vasc: DP/PT pulses palpable 2/4 B/L. Temperature gradient warm to warm B/L. CFT < 3 sec to all digits. Mild non-pitting edema localized to L heel, resolving. Neuro: Protective sensation grossly diminished B/L Derm: L posteromedial heel exhibits circular 2.5cm diameter ulceration with 25% fibrotic and 75% granular base that is boggy in nature. Fat pad globules noted to base of wound. Sanguinous drainage noted. (+)Probe to bone on initial admission. Mild erythema is noted in the jose manuel wound area. Additional 1.5cm x 0.8cm x 0.1cm superficial ulceration noted to posterior heel with fibrotic base , no malodor, no fluctuance, no bogginess, no undermining, and negative probe to bone. Ortho: Involuntary muscle spasms noted to B/L LE, L>R. No tenderness to palpation of L heel at site of ulcerations. - Neurological Exam Neurological Exam: Alert, Awake, Oriented x3 - Psychiatric Exam Psychiatric exam: Normal Affect, Normal Mood Assessment and Plan - Assessment and Plan (Free Text) Assessment: 51 y/o paraplegic male with left heel pressure ulceration that probes to bone. Likely clinical osteomyelitis despite negative x-ray and negative MRI results for radiographic OM changes Plan: Patient seen and evaluated at bedside with attending Dr. Jalloh Chart, labs and vitals reviewed: afebrile WBC 8.1 X-rays of L heel are negative for erosive cortical changes, no fractures or dislocations MRI reveals no erosive cortical changes, no marrow edema, no signs of osteomyelitis Left heel wound culture final report = Corynebacterium species Per ID: pt to continue Vancomycin and Merrem; wound cx only growing Corynebacterium but is more likely superficial swab - aim for 4-6 weeks of antibiotics PICC line in place to R arm Optifoam applied to L heel Rx Bactroban, to switch L heel wound dressing to Bactroban & DSD beginning tomorrow Continue multipodus boots to bilateral lower extremity Podiatry will continue to follow patient while in house <Patricia Jalloh - Last Filed: 02/08/17 13:37> Objective - Vital Signs/Intake and Output Vital Signs (last 24 hours): Temp Pulse Resp BP Pulse Ox 97.7 F 62 20 114/63 98 02/08/17 11:44 02/08/17 11:44 02/08/17 11:44 02/08/17 11:44 02/08/17 05:42 Intake and Output: 02/08/17 02/08/17 06:59 18:59 Intake Total 1350 Balance 1350 - Medications Medications: Current Medications Ascorbic Acid (Vitamin C 500 Mg Tab) 500 mg PO DAILY [facility] Last Admin: 02/08/17 10:04 Dose: 500 mg Baclofen (Lioresal) 20 mg PO TID [facility] Last Admin: 02/08/17 13:09 Dose: 20 mg Enoxaparin Sodium (Lovenox) 100 mg SC 0000,1200 DONAL PRN Reason: Protocol Last Admin: 02/08/17 13:07 Dose: 100 mg Gabapentin (Neurontin) 300 mg PO TID DONAL PRN Reason: Protocol Last Admin: 02/08/17 13:31 Dose: 300 mg Hydromorphone HCl (Dilaudid) 0.5 mg IVP Q3H PRN PRN Reason: Pain, moderate (4-7) Last Admin: 02/08/17 10:37 Dose: 0.5 mg Vancomycin HCl (Vancomycin 1gm) 1 gm in 250 mls @ 167 mls/hr IVPB Q12H DONAL PRN Reason: Protocol Last Admin: 02/08/17 05:14 Dose: 167 mls/hr Meropenem 1 gm/ Dextrose 100 mls @ 100 mls/hr IVPB Q8 DONAL PRN Reason: Protocol Stop: 02/11/17 14:01 Last Admin: 02/08/17 13:09 Dose: 100 mls/hr Mupirocin (Bactroban Ointment) 0 gm TOP BID [facility] Last Admin: 02/08/17 10:04 Dose: Not Given Pantoprazole Sodium (Protonix Ec Tab) 40 mg PO ACB [facility] Last Admin: 02/08/17 08:57 Dose: 40 mg Zinc Sulfate (Zinc Sulfate 220 Mg Cap) 220 mg PO DAILY [facility] Last Admin: 02/08/17 10:05 Dose: 220 mg - Labs Labs: 02/08/17 06:15 02/08/17 06:15 PT 14.2 SECONDS (9.4-12.5) H 02/08/17 06:15 INR 1.28 (0.93-1.08) H 02/08/17 06:15 APTT 35.7 Seconds (25.1-36.5) 02/08/17 06:15 Attending/Attestation - Attestation I have personally seen and examined this patient.: Yes I have fully participated in the care of the patient.: Yes I have reviewed all pertinent clinical information, including history, physical exam and plan: Yes
[2017-02-02] MEDS: Enoxaparin 100 mg Syringe SC SCH ×2 (11:42→21:24)
--- NOTE | 2017-02-02 13:29 | CP.PCM.PN ---
<Paul Cummings - Last Filed: 02/02/17 15:58> Subjective - Date & Time of Evaluation Date of Evaluation: 02/02/17 Time of Evaluation: 10:26 - Subjective Subjective: patient was seen and examined at bedside. he denied any current back pain, however, he stills feels needle pain in his b/l LE and suffers from spasms in his legs. denies cp, sob, cough, abdominal pain or constipation, fevers/chills. understands the plan that he is going to OR today. Objective - Vital Signs/Intake and Output Vital Signs (last 24 hours): Temp Pulse Resp BP Pulse Ox 97.6 F 59 L 18 113/61 99 02/02/17 08:30 02/02/17 08:30 02/02/17 08:30 02/02/17 08:30 02/02/17 08:30 Intake and Output: 02/02/17 02/02/17 06:59 18:59 Intake Total 520 Output Total 1800 Balance -1280 - Medications Medications: Current Medications Baclofen (Lioresal) 20 mg PO TID [facility] Last Admin: 02/02/17 09:43 Dose: 20 mg Enoxaparin Sodium (Lovenox) 100 mg SC Q12 DONAL PRN Reason: Protocol Last Admin: 02/02/17 11:42 Dose: Not Given Gabapentin (Neurontin) 300 mg PO TID DONAL PRN Reason: Protocol Last Admin: 02/02/17 09:43 Dose: 300 mg Vancomycin HCl (Vancomycin 1gm) 1 gm in 250 mls @ 167 mls/hr IVPB Q12H DONAL PRN Reason: Protocol Last Admin: 02/02/17 05:59 Dose: 167 mls/hr Meropenem 500 mg/ Sodium (Chloride) 50 mls @ 100 mls/hr IVPB Q8 DONAL PRN Reason: Protocol Stop: 02/03/17 16:16 Last Admin: 02/02/17 05:57 Dose: 100 mls/hr Sodium Chloride (Sodium Chloride 0.9%) 100 mls @ 150 mls/hr IV .Q40M [facility] Last Admin: 02/02/17 06:24 Dose: 150 mls/hr Mupirocin (Bactroban Ointment) 0 gm TOP BID [facility] Pantoprazole Sodium (Protonix Ec Tab) 40 mg PO ACB [facility] Last Admin: 02/02/17 06:29 Dose: 40 mg - Labs Labs: 02/02/17 08:00 02/02/17 08:00 PT 14.5 SECONDS (9.4-12.5) H 02/02/17 08:00 INR 1.31 (0.93-1.08) H 02/02/17 08:00 APTT 32.9 Seconds (25.1-36.5) 02/02/17 08:00 - Constitutional Appears: Well, Non-toxic, No Acute Distress - Head Exam Head Exam: ATRAUMATIC, NORMAL INSPECTION, NORMOCEPHALIC - Eye Exam Eye Exam: EOMI, Normal appearance, PERRL Pupil Exam: NORMAL ACCOMODATION - ENT Exam ENT Exam: Mucous Membranes Moist, Normal Exam - Neck Exam Neck Exam: Full ROM, Normal Inspection - Respiratory Exam Respiratory Exam: Clear to Ausculation Bilateral, NORMAL BREATHING PATTERN. absent: Rales, Rhonchi, Wheezes - Cardiovascular Exam Cardiovascular Exam: RRR, +S1, +S2. absent: Murmur - GI/Abdominal Exam GI & Abdominal Exam: Soft, Normal Bowel Sounds. absent: Distended, Tenderness - Extremities Exam Additional comments: remains in boots occasional spasms of LE RUE PICC line in place - Back Exam Back Exam: absent: NORMAL INSPECTION (ulcer dressed) - Neurological Exam Neurological Exam: Alert, Awake, Oriented x3 - Psychiatric Exam Psychiatric exam: Normal Affect, Normal Mood - Skin Skin Exam: Normal Color, Warm Assessment and Plan - Assessment and Plan (Free Text) Assessment: 51 y/o paraplegic M with past medical history of spinal abcess, laminectomy, DVT presents to the ED form wound care due to possible heel infection of the left foot. Patient admitted for evaluation of wound and is being treated for osteomyelitis. Plan: 1. Left heel Ulcer-Clinical Osteomyelitis - Blood cultures show no growth after 5 days - sacral wound cx growing corynebacterium - L foot wound cx growing corynebacterium - stool c dif negative for Ag and Toxin - Patient afebrile, no leukocytosis - continue vancomycin and meropenem, d6 - Xray of the left foot: no focal lesion, degenerative changes of tibiotalar and subtalar joints. Corticol sclerosis and osteophytes - MRI of left ankle: no evidence of osteomyelitis radiologically - probe to bone meaning clinical osteomyelitis - Continue multipodus boots to bilateral lower extremity - PICC line RUE for long-term abx treatment - ID consulted, recs appreciated - Podiatry consulted, recs appreciated 2. Sacral Decubitus Ulcer - stage 4 - Abd/Pelvic CT showing 5 x 4.3 cm pilonidal abscess with associated destructive changes involving the distal sacrum and portion of the coccyx, consistent with acute osteomyelitis. No rectocutaneous fistula seen. - surgery consulted, continue IV abx, planned for debrediment today, held lovenox and NPO overnight - Further recs per Dr. Askew regarding colostomy - Colonoscopy planned for Thursday - GI consulted, recs appreciated 3. Paraplegia- chronic - continue home Baclofen - PT evaluation ordered - continue home neurontin - using a haque for incontinence, haque in tact 4. History of DVT s/p IVC filter - holding coumadin and Lovenox per surgery recs - INR therapeutic PTX/Lovenox and SCDs NPO Patient was seen, examined and discussed with attending, Dr. Tari Cummings PGY1 <Tutu Marc B - Last Filed: 02/02/17 17:03> Objective - Vital Signs/Intake and Output Vital Signs (last 24 hours): Temp Pulse Resp BP Pulse Ox 97.6 F 59 L 18 113/61 99 02/02/17 08:30 02/02/17 08:30 02/02/17 08:30 02/02/17 08:30 02/02/17 08:30 Intake and Output: 02/02/17 02/02/17 06:59 18:59 Intake Total 520 600 Output Total 1800 550 Balance -1280 50 - Medications Medications: Current Medications Baclofen (Lioresal) 20 mg PO TID [facility] Last Admin: 02/02/17 14:04 Dose: 20 mg Enoxaparin Sodium (Lovenox) 100 mg SC Q12 DONAL PRN Reason: Protocol Last Admin: 02/02/17 11:42 Dose: Not Given Gabapentin (Neurontin) 300 mg PO TID DONAL PRN Reason: Protocol Last Admin: 02/02/17 14:04 Dose: 300 mg Vancomycin HCl (Vancomycin 1gm) 1 gm in 250 mls @ 167 mls/hr IVPB Q12H DONAL PRN Reason: Protocol Last Admin: 02/02/17 05:59 Dose: 167 mls/hr Meropenem 500 mg/ Sodium (Chloride) 50 mls @ 100 mls/hr IVPB Q8 DONAL PRN Reason: Protocol Stop: 02/03/17 16:16 Last Admin: 02/02/17 14:08 Dose: 100 mls/hr Sodium Chloride (Sodium Chloride 0.9%) 100 mls @ 150 mls/hr IV .Q40M DONAL Last Admin: 02/02/17 06:24 Dose: 150 mls/hr Vancomycin HCl (Vancomycin 1gm) 1 gm in 250 mls @ 167 mls/hr IVPB STAT STA PRN Reason: Protocol Stop: 02/02/17 17:51 Mupirocin (Bactroban Ointment) 0 gm TOP BID DONAL Pantoprazole Sodium (Protonix Ec Tab) 40 mg PO ACB DONAL Last Admin: 02/02/17 06:29 Dose: 40 mg - Labs Labs: 02/02/17 08:00 02/02/17 08:00 PT 14.5 SECONDS (9.4-12.5) H 02/02/17 08:00 INR 1.31 (0.93-1.08) H 02/02/17 08:00 APTT 32.9 Seconds (25.1-36.5) 02/02/17 08:00 Attending/Attestation - Attestation I have personally seen and examined this patient.: Yes I have fully participated in the care of the patient.: Yes I have reviewed all pertinent clinical information, including history, physical exam and plan: Yes Notes (Text): I have seen and examined the patient with the resident. Agree with the above note with the following additions/ exceptions: Briefly this is 51 year old bedridden male with history of spinal abscess, laminectomy, paraplegia, DVT who is admitted with Left heel osteomyelitis and sacral decubitus on vancomycin and meropenem. Patient needs 4-6 weeks of IV antibiotics. Picc line already in place. CT abdomen and pelvis showed sacral osteomyelitis.There is a plan for sacral debridement and possible colostomy this week. Plan to hold Lovenox before surgery. PT recommended CATARINO. Upon discharge the patient will follow-up with PMD . Dr Tutu Marc
[2017-02-02] MEDS ORDERED: Vancomycin 1gm in NS 250ml 1 GM/250 ML BAG IVPB STA (16:22)
--- NOTE | 2017-02-02 16:24 | CP.PCM.PN ---
Subjective - Date & Time of Evaluation Date of Evaluation: 02/02/17 Time of Evaluation: 11:05 - Subjective Subjective: Comfortable, no fevers. Objective - Vital Signs/Intake and Output Vital Signs (last 24 hours): Temp Pulse Resp BP Pulse Ox 97.6 F 59 L 18 113/61 99 02/02/17 08:30 02/02/17 08:30 02/02/17 08:30 02/02/17 08:30 02/02/17 08:30 Intake and Output: 02/02/17 02/02/17 06:59 18:59 Intake Total 520 Output Total 1800 Balance -1280 - Medications Medications: Current Medications Baclofen (Lioresal) 20 mg PO TID [facility] Last Admin: 02/01/17 17:17 Dose: 20 mg Enoxaparin Sodium (Lovenox) 100 mg SC Q12 DONAL PRN Reason: Protocol Last Admin: 01/30/17 21:29 Dose: 100 mg Gabapentin (Neurontin) 300 mg PO TID DONAL PRN Reason: Protocol Last Admin: 02/01/17 17:17 Dose: 300 mg Vancomycin HCl (Vancomycin 1gm) 1 gm in 250 mls @ 167 mls/hr IVPB Q12H DONAL PRN Reason: Protocol Last Admin: 02/02/17 05:59 Dose: 167 mls/hr Meropenem 500 mg/ Sodium (Chloride) 50 mls @ 100 mls/hr IVPB Q8 DONAL PRN Reason: Protocol Stop: 02/03/17 16:16 Last Admin: 02/02/17 05:57 Dose: 100 mls/hr Sodium Chloride (Sodium Chloride 0.9%) 100 mls @ 150 mls/hr IV .Q40M [facility] Last Admin: 02/02/17 06:24 Dose: 150 mls/hr Pantoprazole Sodium (Protonix Ec Tab) 40 mg PO ACB [facility] Last Admin: 02/02/17 06:29 Dose: 40 mg - Labs Labs: 02/02/17 08:00 02/02/17 08:00 PT 14.5 SECONDS (9.4-12.5) H 02/02/17 08:00 INR 1.31 (0.93-1.08) H 02/02/17 08:00 APTT 32.9 Seconds (25.1-36.5) 02/02/17 08:00 - Constitutional Appears: Non-toxic - Head Exam Head Exam: NORMAL INSPECTION - ENT Exam ENT Exam: Mucous Membranes Moist - Neck Exam Neck Exam: absent: Lymphadenopathy, Meningismus - Respiratory Exam Respiratory Exam: Decreased Breath Sounds - Cardiovascular Exam Cardiovascular Exam: +S1, +S2 - GI/Abdominal Exam GI & Abdominal Exam: Soft. absent: Tenderness Assessment and Plan - Assessment and Plan (Free Text) Plan: Assessment Pilonidal abscess and sacral decubitus infection / osteomyelitis as well as left heel ulcer infection history of epidural abscess secondary to Strep pneumoniae with associated cord compression and lower extremity paralysis and neurogenic bladder S/P neurosurgery for abscess drainage and laminectomy history of partial small bowel obstruction significant smoking history alcohol abuse obesity with BMI 40 Plan continue Vancomycin and Merrem ; wound cx only growing Corynebacterium but is more likely superficial swab - aim for 4-6 weeks of antibiotics with weekly ESR , CRP, CBC, CMP while on antibiotics; Vanco trough is low - will give an extra dose of IV Vancomycin today will continue to monitor clinically
--- NOTE | 2017-02-02 18:59 | PN ---
DATE: 02/02/2017 SUBJECTIVE: The patient is lying in bed comfortable. He denies any abdominal pain or rectal bleeding. PHYSICAL EXAMINATION: VITAL SIGNS: Reveal temperature of 97.6, blood pressure 113/61, and heart rate of 59. ABDOMEN: Soft, nontender. LABORATORY DATA: Reveals white blood cell count 7.6, hemoglobin 10.3. Chemistries reveal normal electrolytes. IMPRESSION: 1. Large sacral decubitus. 2. Osteomyelitis of left foot. 3. Paraplegia. RECOMMENDATIONS: I have ordered bowel prep for today. I will schedule a colonoscopy for tomorrow so that the patient can have a diverting colostomy as well as debridement of his sacral decubitus. Atul Allen MD
[2017-02-03] MEDS ORDERED: Sodium Chloride 0.9% 1,000 ML IV SCH (02:38)
[2017-02-03] MEDS: Meropenem 500 MG in Sodium Chloride 0.9% 50 ML IVPB SCH (06:46)
[2017-02-03] MEDS: Vancomycin 1gm in NS 250ml 1 GM/250 ML BAG IVPB SCH ×2 (07:10→18:19)
[2017-02-03] MEDS ORDERED: Sevoflurane - Inhalation Anesthetic Liq (250 ml) ONE (07:37)
[2017-02-03] MEDS: Pantoprazole 40 mg EC Tab PO SCH (07:46)
[2017-02-03] MEDS ORDERED: Propofol 10 mg/ml Inj (20 ML) ONE ×2 (07:46→13:18)
[2017-02-03] MEDS ORDERED: Midazolam 2 MG/2 ML VIAL ONE ×2 (07:46→13:26)
[2017-02-03] MEDS ORDERED: Bupivacaine 0.5% Inj(30mL) ONE (07:53)
[2017-02-03] MEDS ORDERED: Bupivacaine 0.5% Inj(30mL) IJ ONE (08:26)
--- NOTE | 2017-02-03 08:45 | PCM.SURG1 ---
Surgeon's Initial Post Op Note - Surgeon's Notes Surgeon: Dr. Askew Anatomic Pathology Assistant: Dr. Shah PGY2, Linsey MS4 Type of Anesthesia: IV Sedation Anesthesia Administered By: Dr. Quintanilla Pre-Operative Diagnosis: Sacral Abscess. Osteomyelitis Operative Findings: See operative dictation Post-Operative Diagnosis: Sacral Abscess. Osteomyelitis Operation Performed: Debridment of sacral abscess, Sacral Biopsy Specimen/Specimens Removed: Bone Sample Estimated Blood Loss: EBL {In ML}: 10 Blood Products Given: N/A Post-Op Condition: Good Date of Surgery/Procedure: 02/03/17 Time of Surgery/Procedure: 08:45
[2017-02-03] MEDS ORDERED: Lactated Ringer's 1,000 ML IV SCH ×2 (09:00→10:30)
[2017-02-03] MEDS ORDERED: Lidocaine 1% Inj (20ml) ONE (13:18)
[2017-02-03] MEDS ORDERED: Atropine 0.4 mg/ml Inj (1 mL) ONE (13:25)
--- NOTE | 2017-02-03 13:31 | CP.PCM.PN ---
<Paul Cummings - Last Filed: 02/03/17 13:18> Subjective - Date & Time of Evaluation Date of Evaluation: 02/03/17 Time of Evaluation: 10:33 - Subjective Subjective: patient was seen and examined at bedside. denied any complaints. he is s/p debridement this AM and offered no complaints. he denies fevers/chill, n/v/d, cough, cp, sob or abdominal pain. he is planned to go for colonoscopy today. Objective - Vital Signs/Intake and Output Vital Signs (last 24 hours): Temp Pulse Resp BP Pulse Ox 97.8 F 57 L 17 110/66 98 02/03/17 09:13 02/03/17 09:13 02/03/17 09:13 02/03/17 09:13 02/03/17 13:17 Intake and Output: 02/03/17 02/03/17 06:59 18:59 Intake Total 0 0 Output Total 1300 Balance -1300 0 - Medications Medications: Current Medications Baclofen (Lioresal) 20 mg PO TID [facility] Last Admin: 02/02/17 18:26 Dose: 20 mg Enoxaparin Sodium (Lovenox) 100 mg SC Q12 [facility] PRN Reason: Protocol Last Admin: 02/02/17 21:24 Dose: Not Given Gabapentin (Neurontin) 300 mg PO TID [facility] PRN Reason: Protocol Last Admin: 02/02/17 18:26 Dose: 300 mg Vancomycin HCl (Vancomycin 1gm) 1 gm in 250 mls @ 167 mls/hr IVPB Q12H [facility] PRN Reason: Protocol Last Admin: 02/03/17 07:10 Dose: 167 mls/hr Meropenem 500 mg/ Sodium (Chloride) 50 mls @ 100 mls/hr IVPB Q8 [facility] PRN Reason: Protocol Stop: 02/03/17 16:16 Last Admin: 02/03/17 06:46 Dose: 100 mls/hr Sodium Chloride (Sodium Chloride 0.9%) 1,000 mls @ 150 mls/hr IV .Q6H40M [facility] Last Admin: 02/03/17 03:49 Dose: Not Given Lactated Ringer's (Lactated Ringer's) 1,000 mls @ 100 mls/hr IV .Q10H [facility] Mupirocin (Bactroban Ointment) 0 gm TOP BID [facility] Last Admin: 02/02/17 18:32 Dose: 1 unit Pantoprazole Sodium (Protonix Ec Tab) 40 mg PO ACB [facility] Last Admin: 02/03/17 07:46 Dose: Not Given - Labs Labs: 02/02/17 08:00 02/02/17 08:00 PT 14.5 SECONDS (9.4-12.5) H 02/02/17 08:00 INR 1.31 (0.93-1.08) H 02/02/17 08:00 APTT 32.9 Seconds (25.1-36.5) 02/02/17 08:00 - Additional Findings Additional findings: - Constitutional Appears: Well, Non-toxic, No Acute Distress - Head Exam Head Exam: ATRAUMATIC, NORMAL INSPECTION, NORMOCEPHALIC - Eye Exam Eye Exam: EOMI, Normal appearance, PERRL Pupil Exam: NORMAL ACCOMODATION - ENT Exam ENT Exam: Mucous Membranes Moist, Normal Exam - Neck Exam Neck Exam: Full ROM, Normal Inspection - Respiratory Exam Respiratory Exam: Clear to Ausculation Bilateral, NORMAL BREATHING PATTERN. absent: Rales, Rhonchi, Wheezes - Cardiovascular Exam Cardiovascular Exam: RRR, +S1, +S2. absent: Murmur - GI/Abdominal Exam GI & Abdominal Exam: Soft, Normal Bowel Sounds. absent: Distended, Tenderness - Extremities Exam Additional comments: remains in boots occasional spasms of LE (R>L) RUE PICC line in place - Back Exam Back Exam: absent: NORMAL INSPECTION (ulcer dressed) - Neurological Exam Neurological Exam: Alert, Awake, Oriented x3 - Psychiatric Exam Psychiatric exam: Normal Affect, Normal Mood - Skin Skin Exam: Normal Color, Warm Assessment and Plan - Assessment and Plan (Free Text) Assessment: 51 y/o paraplegic M with past medical history of spinal abcess, laminectomy, DVT presents to the ED form wound care due to possible heel infection of the left foot. Patient admitted for evaluation treatment of clinical osteomyelitis of L heel ulcer and sacral decubitus ulcer. Plan: 1. Left heel Ulcer-Clinical Osteomyelitis - Blood cultures show no growth after 5 days - L foot wound cx growing corynebacterium - Patient afebrile, no leukocytosis - continue vancomycin and meropenem, d7 - f/u vancomycin trough - Xray of the left foot: no focal lesion, degenerative changes of tibiotalar and subtalar joints. Corticol sclerosis and osteophytes - MRI of left ankle: no evidence of osteomyelitis radiologically - probe to bone meaning clinical osteomyelitis - Continue multipodus boots to bilateral lower extremity - PICC line RUE for long-term abx treatment - ID consulted, recs appreciated - Podiatry consulted, recs appreciated 2. Sacral Decubitus Ulcer - OR for surgical debridement of ulcer today, possible colostomy planned mid- week - f/u surgical pathology report and wound culture from surgical specimen - sacral wound cx growing corynebacterium - stool c dif negative for Ag and Toxin - Abd/Pelvic CT showing 5 x 4.3 cm pilonidal abscess with associated destructive changes involving the distal sacrum and portion of the coccyx, consistent with acute osteomyelitis. No rectocutaneous fistula seen. - surgery consulted, recs appreciated 3. Paraplegia- chronic - continue home Baclofen - PT evaluation ordered - continue home neurontin - using a haque for incontinence - Colonoscopy planned for today - GI consulted, recs appreciated - possible colostomy planned for mid-week (pt was supposed to have this done electively but hasn't had a change) as pt is fecally incontinent, per surgery team 4. History of DVT s/p IVC filter - holding Lovenox per surgery recs, will continue them after both procedures today - INR therapeutic PTX/Lovenox and SCDs NPO Dispo: SW referral for d/c planning Patient was seen, examined and discussed with attending, Dr. Tari Cummings PGY1 <Tutu Marc - Last Filed: 02/03/17 15:40> Objective - Vital Signs/Intake and Output Vital Signs (last 24 hours): Temp Pulse Resp BP Pulse Ox 97.9 F 61 19 133/73 98 02/03/17 14:35 02/03/17 14:35 02/03/17 14:35 02/03/17 14:35 02/03/17 14:35 Intake and Output: 02/03/17 02/03/17 06:59 18:59 Intake Total 0 0 Output Total 1300 Balance -1300 0 - Medications Medications: Current Medications Baclofen (Lioresal) 20 mg PO TID [facility] Last Admin: 02/02/17 18:26 Dose: 20 mg Enoxaparin Sodium (Lovenox) 100 mg SC Q12 [facility] PRN Reason: Protocol Last Admin: 02/02/17 21:24 Dose: Not Given Gabapentin (Neurontin) 300 mg PO TID [facility] PRN Reason: Protocol Last Admin: 02/02/17 18:26 Dose: 300 mg Vancomycin HCl (Vancomycin 1gm) 1 gm in 250 mls @ 167 mls/hr IVPB Q12H [facility] PRN Reason: Protocol Last Admin: 02/03/17 07:10 Dose: 167 mls/hr Meropenem 500 mg/ Sodium (Chloride) 50 mls @ 100 mls/hr IVPB Q8 [facility] PRN Reason: Protocol Stop: 02/03/17 16:16 Last Admin: 02/03/17 06:46 Dose: 100 mls/hr Sodium Chloride (Sodium Chloride 0.9%) 1,000 mls @ 150 mls/hr IV .Q6H40M [facility] Last Admin: 02/03/17 03:49 Dose: Not Given Lactated Ringer's (Lactated Ringer's) 1,000 mls @ 100 mls/hr IV .Q10H [facility] Sodium Chloride (Sodium Chloride 0.9%) 1,000 mls @ 100 mls/hr IV .Q10H [facility] Mupirocin (Bactroban Ointment) 0 gm TOP BID [facility] Last Admin: 02/02/17 18:32 Dose: 1 unit Pantoprazole Sodium (Protonix Ec Tab) 40 mg PO ACB [facility] Last Admin: 02/03/17 07:46 Dose: Not Given - Labs Labs: 02/02/17 08:00 02/02/17 08:00 PT 14.5 SECONDS (9.4-12.5) H 02/02/17 08:00 INR 1.31 (0.93-1.08) H 02/02/17 08:00 APTT 32.9 Seconds (25.1-36.5) 02/02/17 08:00 Attending/Attestation - Attestation I have personally seen and examined this patient.: Yes I have fully participated in the care of the patient.: Yes I have reviewed all pertinent clinical information, including history, physical exam and plan: Yes Notes (Text): I have seen and examined the patient with the resident. Agree with the above note with the following additions/ exceptions: Briefly this is 51 year old bedridden male with history of spinal abscess, laminectomy, paraplegia, DVT who is admitted with Left heel osteomyelitis clinically and sacral decubitus / osteomyelitis on vancomycin and meropenem. Patient needs 4-6 weeks of IV antibiotics. Picc line already in place. CT abdomen and pelvis showed sacral osteomyelitis. Today patient underwent sacral debridement which he tolerated well. He is scheduled for colonoscopy later today and possible colostomy this week. Start Mvi, zinc and vitamin C. Plan to hold Lovenox before surgery. PT recommended CATARINO. Upon discharge the patient will follow-up with PMD . Dr Tutu Marc
[2017-02-03] MEDS: Sodium Chloride 0.9% 1,000 ML IV SCH (15:43)
[2017-02-03] MEDS: Enoxaparin 100 mg Syringe SC SCH (21:44)
[2017-02-04] MEDS: Vancomycin 1gm in NS 250ml 1 GM/250 ML BAG IVPB SCH ×2 (06:45→16:59)
--- NOTE | 2017-02-04 09:43 | CP.PCM.PN ---
<Xiomara Canales - Last Filed: 02/04/17 09:43> Subjective - Date & Time of Evaluation Date of Evaluation: 02/04/17 Time of Evaluation: 09:41 - Subjective Subjective: 51 y/o paraplegic male seen at bedside this morning with attending Dr. Jalloh. Offloading boots are not on at time of visit. Pt states he had his colonoscopy and wound surgery done yesterday and is feeling well today. PICC line is in place and he has been resting in bed. Pt denies any acute events overnight. Pt states he is not in any pain at this time. Pt denies F/C/N/V/CP/SOB. Objective - Vital Signs/Intake and Output Vital Signs (last 24 hours): Temp Pulse Resp BP Pulse Ox 98.3 F 67 18 109/62 98 02/04/17 07:30 02/04/17 07:30 02/04/17 07:30 02/04/17 07:30 02/04/17 07:30 Intake and Output: 02/04/17 02/04/17 06:59 18:59 Intake Total 300 Output Total 100 Balance 200 - Medications Medications: Current Medications Baclofen (Lioresal) 20 mg PO TID [facility] Last Admin: 02/03/17 18:18 Dose: 20 mg Enoxaparin Sodium (Lovenox) 100 mg SC Q12 [facility] PRN Reason: Protocol Last Admin: 02/03/17 21:44 Dose: 100 mg Gabapentin (Neurontin) 300 mg PO TID [facility] PRN Reason: Protocol Last Admin: 02/03/17 18:19 Dose: 300 mg Vancomycin HCl (Vancomycin 1gm) 1 gm in 250 mls @ 167 mls/hr IVPB Q12H [facility] PRN Reason: Protocol Last Admin: 02/04/17 06:45 Dose: 167 mls/hr Sodium Chloride (Sodium Chloride 0.9%) 1,000 mls @ 100 mls/hr IV .Q10H [facility] Last Admin: 02/03/17 15:43 Dose: 100 mls/hr Mupirocin (Bactroban Ointment) 0 gm TOP BID [facility] Last Admin: 02/03/17 18:08 Dose: Not Given Pantoprazole Sodium (Protonix Ec Tab) 40 mg PO ACB [facility] Last Admin: 02/03/17 07:46 Dose: Not Given - Labs Labs: 02/02/17 08:00 02/02/17 08:00 PT 14.5 SECONDS (9.4-12.5) H 02/02/17 08:00 INR 1.31 (0.93-1.08) H 02/02/17 08:00 APTT 32.9 Seconds (25.1-36.5) 02/02/17 08:00 - Constitutional Appears: Well, Non-toxic, No Acute Distress - Extremities Exam Additional comments: LE focused examination: Vasc: DP/PT pulses palpable 2/4 B/L. Temperature gradient warm to warm B/L. CFT < 3 sec to all digits. Minimal non-pitting edema localized to L heel. Neuro: Protective sensation grossly diminished B/L Derm: L posteromedial heel exhibits circular 2.5cm diameter ulceration with 25% fibrotic and 75% granular base that is slightly boggy. Fat pad globules noted to base of wound. Sanguinous drainage noted. (+)Probe to bone on initial admission. Erythema noted to jose manuel-wound previously is resolving at this time. Additional 1.5cm x 0.8cm x 0.1cm superficial ulceration noted to posterior heel with 75% granular and 25% fibrotic base at this time, no malodor, no fluctuance , no bogginess, no undermining, and negative probe to bone. Ortho: Involuntary muscle spasms noted to B/L LE, L>R. No tenderness to palpation of L heel at site of pressure ulcerations. - Neurological Exam Neurological Exam: Alert, Awake, Oriented x3 - Psychiatric Exam Psychiatric exam: Normal Affect, Normal Mood Assessment and Plan - Assessment and Plan (Free Text) Assessment: 51 y/o paraplegic male with left heel pressure ulceration that probes to bone and additional posterior heel superficial ulceration secondary to pressure. Likely clinical osteomyelitis despite negative x-ray and negative MRI results for radiographic OM changes Plan: Patient seen and evaluated at bedside with attending Dr. Jalloh Chart, labs and vitals reviewed: afebrile WBC 7.6 X-rays of L heel are negative for erosive cortical changes, no fractures or dislocations MRI reveals no erosive cortical changes, no marrow edema, no signs of osteomyelitis Left heel wound culture final report = Corynebacterium species Per ID: pt to continue Vancomycin and Merrem; wound cx only growing Corynebacterium but is more likely superficial swab - aim for 4-6 weeks of antibiotics PICC line in place to R arm L heel wounds dressed with Bactroban, ABD and DSD Multipodus boots applied to B/L lower extremities- please keep on at all times Podiatry will continue to follow patient while in house <Patricia Jalloh - Last Filed: 02/08/17 13:42> Objective - Vital Signs/Intake and Output Vital Signs (last 24 hours): Temp Pulse Resp BP Pulse Ox 97.7 F 62 20 114/63 98 02/08/17 11:44 02/08/17 11:44 02/08/17 11:44 02/08/17 11:44 02/08/17 05:42 Intake and Output: 02/08/17 02/08/17 06:59 18:59 Intake Total 1350 Balance 1350 - Medications Medications: Current Medications Ascorbic Acid (Vitamin C 500 Mg Tab) 500 mg PO DAILY [facility] Last Admin: 02/08/17 10:04 Dose: 500 mg Baclofen (Lioresal) 20 mg PO TID [facility] Last Admin: 02/08/17 13:09 Dose: 20 mg Enoxaparin Sodium (Lovenox) 100 mg SC 0000,1200 [facility] PRN Reason: Protocol Last Admin: 02/08/17 13:07 Dose: 100 mg Gabapentin (Neurontin) 300 mg PO TID [facility] PRN Reason: Protocol Last Admin: 02/08/17 13:31 Dose: 300 mg Hydromorphone HCl (Dilaudid) 0.5 mg IVP Q3H [facility]N PRN Reason: Pain, moderate (4-7) Last Admin: 02/08/17 10:37 Dose: 0.5 mg Vancomycin HCl (Vancomycin 1gm) 1 gm in 250 mls @ 167 mls/hr IVPB Q12H [facility] PRN Reason: Protocol Last Admin: 02/08/17 05:14 Dose: 167 mls/hr Meropenem 1 gm/ Dextrose 100 mls @ 100 mls/hr IVPB Q8 [facility] PRN Reason: Protocol Stop: 02/11/17 14:01 Last Admin: 02/08/17 13:09 Dose: 100 mls/hr Mupirocin (Bactroban Ointment) 0 gm TOP BID [facility] Last Admin: 02/08/17 10:04 Dose: Not Given Pantoprazole Sodium (Protonix Ec Tab) 40 mg PO ACB [facility] Last Admin: 02/08/17 08:57 Dose: 40 mg Zinc Sulfate (Zinc Sulfate 220 Mg Cap) 220 mg PO DAILY [facility] Last Admin: 02/08/17 10:05 Dose: 220 mg - Labs Labs: 02/08/17 06:15 02/08/17 06:15 PT 14.2 SECONDS (9.4-12.5) H 02/08/17 06:15 INR 1.28 (0.93-1.08) H 02/08/17 06:15 APTT 35.7 Seconds (25.1-36.5) 02/08/17 06:15 Attending/Attestation - Attestation I have personally seen and examined this patient.: Yes I have fully participated in the care of the patient.: Yes I have reviewed all pertinent clinical information, including history, physical exam and plan: Yes
--- NOTE | 2017-02-04 09:56 | CP.PCM.PN ---
<Paul Cummings - Last Filed: 02/04/17 12:50> Subjective - Date & Time of Evaluation Date of Evaluation: 02/04/17 Time of Evaluation: 09:51 - Subjective Subjective: patient was seen and examined at bedside. denies any overnight events, fevers/ chills, abdominal pain, n/v, chest pain, cough or other complaints. he states that he has had no complications from the procedures yesterday and is awaiting the decision for colostomy. Objective - Vital Signs/Intake and Output Vital Signs (last 24 hours): Temp Pulse Resp BP Pulse Ox 98.3 F 67 18 109/62 98 02/04/17 07:30 02/04/17 07:30 02/04/17 07:30 02/04/17 07:30 02/04/17 07:30 Intake and Output: 02/04/17 02/04/17 06:59 18:59 Intake Total 300 Output Total 100 Balance 200 - Medications Medications: Current Medications Baclofen (Lioresal) 20 mg PO TID [facility] Last Admin: 02/03/17 18:18 Dose: 20 mg Enoxaparin Sodium (Lovenox) 100 mg SC Q12 [facility] PRN Reason: Protocol Last Admin: 02/03/17 21:44 Dose: 100 mg Gabapentin (Neurontin) 300 mg PO TID [facility] PRN Reason: Protocol Last Admin: 02/03/17 18:19 Dose: 300 mg Vancomycin HCl (Vancomycin 1gm) 1 gm in 250 mls @ 167 mls/hr IVPB Q12H [facility] PRN Reason: Protocol Last Admin: 02/04/17 06:45 Dose: 167 mls/hr Sodium Chloride (Sodium Chloride 0.9%) 1,000 mls @ 100 mls/hr IV .Q10H [facility] Last Admin: 02/03/17 15:43 Dose: 100 mls/hr Mupirocin (Bactroban Ointment) 0 gm TOP BID [facility] Last Admin: 02/03/17 18:08 Dose: Not Given Pantoprazole Sodium (Protonix Ec Tab) 40 mg PO ACB [facility] Last Admin: 02/03/17 07:46 Dose: Not Given - Labs Labs: 02/02/17 08:00 02/02/17 08:00 PT 14.5 SECONDS (9.4-12.5) H 02/02/17 08:00 INR 1.31 (0.93-1.08) H 02/02/17 08:00 APTT 32.9 Seconds (25.1-36.5) 02/02/17 08:00 - Constitutional Appears: Well, Non-toxic, No Acute Distress - Head Exam Head Exam: ATRAUMATIC, NORMAL INSPECTION, NORMOCEPHALIC - Eye Exam Eye Exam: EOMI, Normal appearance, PERRL Pupil Exam: NORMAL ACCOMODATION - ENT Exam ENT Exam: Mucous Membranes Moist, Normal Exam - Neck Exam Neck Exam: Normal Inspection - Respiratory Exam Respiratory Exam: Clear to Ausculation Bilateral, NORMAL BREATHING PATTERN. absent: Rales, Rhonchi, Wheezes, Respiratory Distress - Cardiovascular Exam Cardiovascular Exam: RRR, +S1, +S2. absent: Murmur - GI/Abdominal Exam GI & Abdominal Exam: Soft, Normal Bowel Sounds. absent: Distended, Tenderness Additional comments: abdominal muscles spasm with palpation - Extremities Exam Extremities Exam: absent: Full ROM (paralyzed LE; occasional sapsms present ), Pedal Edema, Tenderness Additional comments: occasional spasms of LE (R>L) RUE PICC line in place - Back Exam Back Exam: NORMAL INSPECTION Additional comments: sacral ulcer dressing clean/dry/intact - Neurological Exam Neurological Exam: Alert, Awake, Oriented x3 - Psychiatric Exam Psychiatric exam: Normal Affect, Normal Mood - Skin Skin Exam: Normal Color, Warm Assessment and Plan - Assessment and Plan (Free Text) Assessment: - Constitutional Appears: Well, Non-toxic, No Acute Distress 51 y/o paraplegic M with past medical history of spinal abcess, laminectomy, DVT presents to the ED form wound care due to possible heel infection of the left foot. Patient admitted for evaluation treatment of clinical osteomyelitis of L heel ulcer being followed by Podiatry and sacral decubitus ulcer s/p surgical debridement POD 1. Plan: 1. Left heel Ulcer-Clinical Osteomyelitis - Blood cultures show no growth after 5 days - L foot wound cx growing corynebacterium - Patient afebrile, no leukocytosis - continue vancomycin and meropenem d8 - f/u vancomycin trough - Xray of the left foot: no focal lesion, degenerative changes of tibiotalar and subtalar joints. Corticol sclerosis and osteophytes - MRI of left ankle: no evidence of osteomyelitis radiologically - probe to bone meaning clinical osteomyelitis - Continue multipodus boots to bilateral lower extremity - PICC line RUE for long-term abx treatment - ID consulted, recs appreciated - Podiatry consulted, recs appreciated 2. Sacral Decubitus Ulcer - POD1 for surgical debridement of ulcer - f/u surgical pathology report and wound culture from surgical specimen - vitamin C and zinc given to promote wound healing - sacral wound cx growing corynebacterium - stool c dif negative for Ag and Toxin - Abd/Pelvic CT showing 5 x 4.3 cm pilonidal abscess with associated destructive changes involving the distal sacrum and portion of the coccyx, consistent with acute osteomyelitis. No rectocutaneous fistula seen. - surgery consulted, recs appreciated 3. Paraplegia- chronic - continue home Baclofen - PT evaluation ordered - continue home neurontin - using a haque for incontinence - Colonoscopy planned for today - GI consulted, recs appreciated - possible colostomy planned for next week (pt was supposed to have this done electively but hasn't had a change) as pt is fecally incontinent, per surgery team - will insert rectal tube 4. History of DVT s/p IVC filter - cont Lovenox - INR therapeutic PTX/Lovenox NPO Dispo: SW referral for d/c planning Patient was seen, examined and discussed with attending, Dr. Tari Cummings PGY1 <Tutu Marc - Last Filed: 02/04/17 16:35> Objective - Vital Signs/Intake and Output Vital Signs (last 24 hours): Temp Pulse Resp BP Pulse Ox 98.4 F 70 18 114/72 100 02/04/17 16:29 02/04/17 16:29 02/04/17 16:29 02/04/17 16:29 02/04/17 16:29 Intake and Output: 02/04/17 02/04/17 06:59 18:59 Intake Total 300 Output Total 100 Balance 200 - Medications Medications: Current Medications Ascorbic Acid (Vitamin C 500 Mg Tab) 500 mg PO DAILY [facility] Last Admin: 02/04/17 16:26 Dose: 500 mg Baclofen (Lioresal) 20 mg PO TID [facility] Last Admin: 02/04/17 14:52 Dose: 20 mg Enoxaparin Sodium (Lovenox) 100 mg SC Q12 [facility] PRN Reason: Protocol Last Admin: 02/04/17 10:50 Dose: 100 mg Gabapentin (Neurontin) 300 mg PO TID [facility] PRN Reason: Protocol Last Admin: 02/04/17 14:52 Dose: 300 mg Vancomycin HCl (Vancomycin 1gm) 1 gm in 250 mls @ 167 mls/hr IVPB Q12H [facility] PRN Reason: Protocol Last Admin: 02/04/17 06:45 Dose: 167 mls/hr Sodium Chloride (Sodium Chloride 0.9%) 1,000 mls @ 100 mls/hr IV .Q10H [facility] Last Admin: 02/03/17 15:43 Dose: 100 mls/hr Meropenem 1 gm/ Dextrose 100 mls @ 100 mls/hr IVPB Q8 [facility] PRN Reason: Protocol Stop: 02/11/17 14:01 Last Admin: 02/04/17 14:52 Dose: 100 mls/hr Mupirocin (Bactroban Ointment) 0 gm TOP BID [facility] Last Admin: 02/04/17 11:00 Dose: Not Given Pantoprazole Sodium (Protonix Ec Tab) 40 mg PO ACB [facility] Last Admin: 02/04/17 10:51 Dose: 40 mg Zinc Sulfate (Zinc Sulfate 220 Mg Cap) 220 mg PO DAILY [facility] Last Admin: 02/04/17 16:26 Dose: 220 mg - Labs Labs: 02/04/17 11:10 02/04/17 11:10 PT 14.3 SECONDS (9.4-12.5) H 02/04/17 11:10 INR 1.29 (0.93-1.08) H 02/04/17 11:10 APTT 32.9 Seconds (25.1-36.5) 02/02/17 08:00 Attending/Attestation - Attestation I have personally seen and examined this patient.: Yes I have fully participated in the care of the patient.: Yes I have reviewed all pertinent clinical information, including history, physical exam and plan: Yes Notes (Text): I have seen and examined the patient with the resident. Agree with the above note with the following additions/ exceptions: Briefly this is 51 year old bedridden male with history of spinal abscess, laminectomy, paraplegia, DVT who is admitted with Left heel osteomyelitis clinically and sacral decubitus / osteomyelitis on vancomycin and meropenem. Patient needs 4-6 weeks of IV antibiotics. Picc line already in place. CT abdomen and pelvis showed sacral osteomyelitis. Patient underwent sacral debridement and colonoscopy which did not reveal any abnormalities. There is a plan for possible colostomy this week. Continue Mvi, zinc and vitamin C. PT recommended CATARINO. Upon discharge the patient will follow-up with PMD . Dr Tutu Marc
[2017-02-04] MEDS: Enoxaparin 100 mg Syringe SC SCH ×2 (10:50→21:24)
[2017-02-04] MEDS: Pantoprazole 40 mg EC Tab PO SCH (10:51)
[2017-02-04 11:25] LABS: HEMATOCRIT 32.3 % (42.0-52.0); MEAN CELL VOLUME 83.9 fl (80.0-105.0); MEAN CORPUSCULAR HEMOGLOBIN 26.8 pg (25.0-35.0); MEAN CORPUSCULAR HGB CONC 31.9 g/dl (31.0-37.0); RED CELL DISTRIBUTION WIDTH 14.9 % (11.5-14.5); WHITE BLOOD COUNT 7.4 10^3/ul (4.5-11.0)
[2017-02-04 11:30] LABS: ALB/GLOB RATIO 0.9 (1.1-1.8); ALKALINE PHOSPHATASE 75 U/L (38-126); ALT/SGPT 42 U/L (7-56); AST/SGOT 24 U/L (17-59); BILIRUBIN,TOTAL 0.4 mg/dL (0.2-1.3); BLOOD UREA NITROGEN 9 mg/dL (7-21); CALCIUM 9.2 mg/dL (8.4-10.5); CARBON DIOXIDE 29 mmol/L (21-33); CHLORIDE 105 mmol/L (98-107); GFR AFRICAN-AMERICAN > 60; GLUCOSE,RANDOM 111 mg/dL (70-110); INR 1.29 (0.93-1.08); POTASSIUM 3.6 mmol/L (3.6-5.0); SODIUM 141 mmol/L (132-148); TOTAL PROTEIN 7.3 g/dL (5.8-8.3)
--- NOTE | 2017-02-04 13:26 | CP.PCM.PN ---
<Juvenal Shah - Last Filed: 02/04/17 13:43> Subjective - Date & Time of Evaluation Date of Evaluation: 02/04/17 Time of Evaluation: 13:23 - Subjective Subjective: General Surgery Progress Note For Dr Askew This patient was seen and examined this Am at bedside. No acute events to reports overnight. He continues to have liquid bowel movements. Denies chest pain SOB fevers chills nausea or vomiting. Objective - Vital Signs/Intake and Output Vital Signs (last 24 hours): Temp Pulse Resp BP Pulse Ox 98.3 F 67 18 109/62 98 02/04/17 07:30 02/04/17 07:30 02/04/17 07:30 02/04/17 07:30 02/04/17 07:30 Intake and Output: 02/04/17 02/04/17 06:59 18:59 Intake Total 300 Output Total 100 Balance 200 - Medications Medications: Current Medications Ascorbic Acid (Vitamin C 500 Mg Tab) 500 mg PO DAILY [facility] Baclofen (Lioresal) 20 mg PO TID [facility] [place] Last Admin: 02/04/17 10:51 Dose: 20 mg Enoxaparin Sodium (Lovenox) 100 mg SC Q12 [facility] PRN Reason: Protocol Last Admin: 02/04/17 10:50 Dose: 100 mg Gabapentin (Neurontin) 300 mg PO TID [facility] PRN Reason: Protocol Last Admin: 02/04/17 10:51 Dose: 300 mg Vancomycin HCl (Vancomycin 1gm) 1 gm in 250 mls @ 167 mls/hr IVPB Q12H [facility] PRN Reason: Protocol Last Admin: 02/04/17 06:45 Dose: 167 mls/hr Sodium Chloride (Sodium Chloride 0.9%) 1,000 mls @ 100 mls/hr IV .Q10H [facility] Last Admin: 02/03/17 15:43 Dose: 100 mls/hr Meropenem 1 gm/ Dextrose 100 mls @ 100 mls/hr IVPB Q8 [facility] PRN Reason: Protocol Stop: 02/11/17 14:01 Mupirocin (Bactroban Ointment) 0 gm TOP BID [facility] Last Admin: 02/04/17 11:00 Dose: Not Given Pantoprazole Sodium (Protonix Ec Tab) 40 mg PO ACB [facility] Last Admin: 02/04/17 10:51 Dose: 40 mg Zinc Sulfate (Zinc Sulfate 220 Mg Cap) 220 mg PO DAILY [facility] - Labs Labs: 02/04/17 11:10 02/04/17 11:10 PT 14.3 SECONDS (9.4-12.5) H 02/04/17 11:10 INR 1.29 (0.93-1.08) H 02/04/17 11:10 APTT 32.9 Seconds (25.1-36.5) 02/02/17 08:00 - Constitutional Appears: Non-toxic, No Acute Distress - Head Exam Head Exam: ATRAUMATIC, NORMOCEPHALIC - Eye Exam Eye Exam: EOMI, Normal appearance - ENT Exam ENT Exam: Mucous Membranes Moist - Respiratory Exam Respiratory Exam: NORMAL BREATHING PATTERN - Cardiovascular Exam Cardiovascular Exam: REGULAR RHYTHM - GI/Abdominal Exam GI & Abdominal Exam: Soft. absent: Guarding, Rigid, Tenderness - Neurological Exam Neurological Exam: Alert, Awake - Skin Skin Exam: Dry, Intact Assessment and Plan - Assessment and Plan (Free Text) Assessment: 51 parapalegic male with sacral ulcer Regular Diet IVF plan for colostomy later this week Discussed with Dr. Azar Shah PGY2 <Tutu Marc - Last Filed: 02/04/17 16:30> Objective - Vital Signs/Intake and Output Vital Signs (last 24 hours): Temp Pulse Resp BP Pulse Ox 98.3 F 67 18 109/62 98 02/04/17 07:30 02/04/17 07:30 02/04/17 07:30 02/04/17 07:30 02/04/17 07:30 Intake and Output: 02/04/17 02/04/17 06:59 18:59 Intake Total 300 Output Total 100 Balance 200 - Medications Medications: Current Medications Ascorbic Acid (Vitamin C 500 Mg Tab) 500 mg PO DAILY [facility] Baclofen (Lioresal) 20 mg PO TID [facility] [place] Last Admin: 02/04/17 14:52 Dose: 20 mg Enoxaparin Sodium (Lovenox) 100 mg SC Q12 [facility] PRN Reason: Protocol Last Admin: 02/04/17 10:50 Dose: 100 mg Gabapentin (Neurontin) 300 mg PO TID [facility] PRN Reason: Protocol Last Admin: 02/04/17 14:52 Dose: 300 mg Vancomycin HCl (Vancomycin 1gm) 1 gm in 250 mls @ 167 mls/hr IVPB Q12H [facility] PRN Reason: Protocol Last Admin: 02/04/17 06:45 Dose: 167 mls/hr Sodium Chloride (Sodium Chloride 0.9%) 1,000 mls @ 100 mls/hr IV .Q10H [facility] Last Admin: 02/03/17 15:43 Dose: 100 mls/hr Meropenem 1 gm/ Dextrose 100 mls @ 100 mls/hr IVPB Q8 [facility] PRN Reason: Protocol Stop: 02/11/17 14:01 Last Admin: 02/04/17 14:52 Dose: 100 mls/hr Mupirocin (Bactroban Ointment) 0 gm TOP BID [facility] Last Admin: 02/04/17 11:00 Dose: Not Given Pantoprazole Sodium (Protonix Ec Tab) 40 mg PO ACB [facility] [place] Last Admin: 02/04/17 10:51 Dose: 40 mg Zinc Sulfate (Zinc Sulfate 220 Mg Cap) 220 mg PO DAILY [facility] - Labs Labs: 02/04/17 11:10 02/04/17 11:10 PT 14.3 SECONDS (9.4-12.5) H 02/04/17 11:10 INR 1.29 (0.93-1.08) H 02/04/17 11:10 APTT 32.9 Seconds (25.1-36.5) 02/02/17 08:00 Attending/Attestation - Attestation I have personally seen and examined this patient.: Yes I have fully participated in the care of the patient.: Yes I have reviewed all pertinent clinical information, including history, physical exam and plan: Yes
[2017-02-04] MEDS: Meropenem 1 GM in Dextrose 5% In Water 100 ML IVPB SCH ×2 (14:52→21:24)
--- NOTE | 2017-02-04 17:36 | CP.PCM.PN ---
Subjective - Date & Time of Evaluation Date of Evaluation: 02/04/17 Time of Evaluation: 12:05 - Subjective Subjective: No fevers overnight, not in distress. Objective - Vital Signs/Intake and Output Vital Signs (last 24 hours): Temp Pulse Resp BP Pulse Ox 98.4 F 70 18 114/72 100 02/04/17 16:29 02/04/17 16:29 02/04/17 16:29 02/04/17 16:29 02/04/17 16:29 Intake and Output: 02/04/17 02/04/17 06:59 18:59 Intake Total 300 Output Total 100 Balance 200 - Medications Medications: Current Medications Ascorbic Acid (Vitamin C 500 Mg Tab) 500 mg PO DAILY [facility] Last Admin: 02/04/17 16:26 Dose: 500 mg Baclofen (Lioresal) 20 mg PO TID [facility] Last Admin: 02/04/17 17:00 Dose: 20 mg Enoxaparin Sodium (Lovenox) 100 mg SC Q12 [facility] PRN Reason: Protocol Last Admin: 02/04/17 10:50 Dose: 100 mg Gabapentin (Neurontin) 300 mg PO TID [facility] PRN Reason: Protocol Last Admin: 02/04/17 17:00 Dose: 300 mg Vancomycin HCl (Vancomycin 1gm) 1 gm in 250 mls @ 167 mls/hr IVPB Q12H [facility] PRN Reason: Protocol Last Admin: 02/04/17 16:59 Dose: 167 mls/hr Sodium Chloride (Sodium Chloride 0.9%) 1,000 mls @ 100 mls/hr IV .Q10H [facility] Last Admin: 02/03/17 15:43 Dose: 100 mls/hr Meropenem 1 gm/ Dextrose 100 mls @ 100 mls/hr IVPB Q8 [facility] PRN Reason: Protocol Stop: 02/11/17 14:01 Last Admin: 02/04/17 14:52 Dose: 100 mls/hr Mupirocin (Bactroban Ointment) 0 gm TOP BID [facility] Last Admin: 02/04/17 11:00 Dose: Not Given Pantoprazole Sodium (Protonix Ec Tab) 40 mg PO ACB [facility] Last Admin: 02/04/17 10:51 Dose: 40 mg Zinc Sulfate (Zinc Sulfate 220 Mg Cap) 220 mg PO DAILY [facility] Last Admin: 02/04/17 16:26 Dose: 220 mg - Labs Labs: 02/04/17 11:10 02/04/17 11:10 PT 14.3 SECONDS (9.4-12.5) H 02/04/17 11:10 INR 1.29 (0.93-1.08) H 02/04/17 11:10 APTT 32.9 Seconds (25.1-36.5) 02/02/17 08:00 - Constitutional Appears: Non-toxic - Head Exam Head Exam: NORMAL INSPECTION - ENT Exam ENT Exam: Mucous Membranes Moist - Neck Exam Neck Exam: absent: Meningismus - Respiratory Exam Respiratory Exam: Decreased Breath Sounds - Cardiovascular Exam Cardiovascular Exam: +S1, +S2 - GI/Abdominal Exam GI & Abdominal Exam: Soft. absent: Tenderness Assessment and Plan - Assessment and Plan (Free Text) Plan: Assessment Pilonidal abscess and sacral decubitus infection / osteomyelitis as well as left heel ulcer infection S/P sacral debridement POD #1 history of epidural abscess secondary to Strep pneumoniae with associated cord compression and lower extremity paralysis and neurogenic bladder S/P neurosurgery for abscess drainage and laminectomy history of partial small bowel obstruction significant smoking history alcohol abuse obesity with BMI 40 Plan continue Vancomycin and Merrem ; wound cx only growing Corynebacterium but is more likely superficial swab - aim for 4-6 weeks of antibiotics with weekly ESR , CRP, CBC, CMP while on antibiotics; Vanco trough is low - will give an extra dose of IV Vancomycin today follow up OR pathology will continue to monitor clinically
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
[2017-02-04] MEDS: Sodium Chloride 0.9% 1,000 ML IV SCH ×2 (23:21→23:24)
[2017-02-05] MEDS: Meropenem 1 GM in Dextrose 5% In Water 100 ML IVPB SCH ×3 (05:41→21:37)
[2017-02-05] MEDS: Vancomycin 1gm in NS 250ml 1 GM/250 ML BAG IVPB SCH ×2 (06:29→18:15)
[2017-02-05] MEDS: Lactated Ringer's 1,000 ML IV SCH (09:50)
[2017-02-05] MEDS: Pantoprazole 40 mg EC Tab PO SCH (09:53)
--- NOTE | 2017-02-05 10:03 | CP.PCM.PN ---
Subjective - Date & Time of Evaluation Date of Evaluation: 02/05/17 Time of Evaluation: 10:00 - Subjective Subjective: General Surgery - Dr. Askew Pt S&E. AMAN. Pt states he is doing well, tolerating regular diet, no N/V, F/C , SOb/Cp. Dressing over the sacral wound was changed and pt tolerated well. Plan is for Colostomy tomorrow which he is aware of. Objective - Vital Signs/Intake and Output Vital Signs (last 24 hours): Temp Pulse Resp BP Pulse Ox 98.5 F 57 L 18 129/75 98 02/05/17 07:00 02/05/17 07:00 02/05/17 07:00 02/05/17 07:00 02/05/17 07:00 Intake and Output: 02/05/17 02/05/17 06:59 18:59 Intake Total 0 Output Total 3600 Balance -3600 - Medications Medications: Current Medications Ascorbic Acid (Vitamin C 500 Mg Tab) 500 mg PO DAILY [facility] Last Admin: 02/05/17 09:53 Dose: 500 mg Baclofen (Lioresal) 20 mg PO TID [facility] Last Admin: 02/05/17 09:53 Dose: 20 mg Enoxaparin Sodium (Lovenox) 100 mg SC Q12 [facility] PRN Reason: Protocol Last Admin: 02/04/17 21:24 Dose: 100 mg Gabapentin (Neurontin) 300 mg PO TID [facility] PRN Reason: Protocol Last Admin: 02/05/17 09:52 Dose: 300 mg Vancomycin HCl (Vancomycin 1gm) 1 gm in 250 mls @ 167 mls/hr IVPB Q12H [facility] PRN Reason: Protocol Last Admin: 02/05/17 06:29 Dose: 167 mls/hr Meropenem 1 gm/ Dextrose 100 mls @ 100 mls/hr IVPB Q8 [facility] PRN Reason: Protocol Stop: 02/11/17 14:01 Last Admin: 02/05/17 05:41 Dose: 100 mls/hr Lactated Ringer's (Lactated Ringer's) 1,000 mls @ 100 mls/hr IV .Q10H [facility] Last Admin: 02/05/17 09:50 Dose: 100 mls/hr Mupirocin (Bactroban Ointment) 0 gm TOP BID [facility] Last Admin: 02/04/17 11:00 Dose: Not Given Pantoprazole Sodium (Protonix Ec Tab) 40 mg PO ACB [facility] Last Admin: 02/05/17 09:53 Dose: 40 mg Zinc Sulfate (Zinc Sulfate 220 Mg Cap) 220 mg PO DAILY [facility] Last Admin: 02/05/17 09:53 Dose: 220 mg - Labs Labs: 02/04/17 11:10 02/04/17 11:10 PT 14.3 SECONDS (9.4-12.5) H 02/04/17 11:10 INR 1.29 (0.93-1.08) H 02/04/17 11:10 APTT 32.9 Seconds (25.1-36.5) 02/02/17 08:00 - Constitutional Appears: No Acute Distress - Head Exam Head Exam: ATRAUMATIC, NORMAL INSPECTION, NORMOCEPHALIC - Eye Exam Eye Exam: Normal appearance - Respiratory Exam Respiratory Exam: NORMAL BREATHING PATTERN. absent: Respiratory Distress - GI/Abdominal Exam GI & Abdominal Exam: Soft. absent: Distended, Firm, Guarding, Tenderness, Rebound - Rectal Exam Additional comments: Sacral decubitus ulcer s/p debridement and I&D with payton drains in place, dressing saturated in purulent drainage, was changed with sterile gauze and ABD - Neurological Exam Neurological Exam: Alert, Oriented x3 - Psychiatric Exam Psychiatric exam: Normal Affect, Normal Mood - Skin Skin Exam: Dry, Intact Assessment and Plan - Assessment and Plan (Free Text) Assessment: 51 yo M paraplegic with fecal incontinence and sacral decubitus S/P Debridement POD #2 -Regular diet in AM, Clear liquids in PM -Plan for OR tomorrow for Colostomy -Hold PM dose of Lovenox -NPO after midnight DW Dr. Azar Vazquez PGY3
[2017-02-05] MEDS: Enoxaparin 100 mg Syringe SC SCH (10:59)
--- NOTE | 2017-02-05 11:38 | CP.PCM.PN ---
<Paul Cummings - Last Filed: 02/05/17 15:43> Subjective - Date & Time of Evaluation Date of Evaluation: 02/05/17 Time of Evaluation: 10:10 - Subjective Subjective: patient was seen and examined bedside. he offers no complaints and is fully understanding of his condition and the plan moving forward. he did not have the rectal tube placed last night and is scheduled to be going to OR tomorrow. pt denies cp, abdominal pain, n/v/d, headaches. he also states that his sacral dressing was changed this morning by surgical team. Objective - Vital Signs/Intake and Output Vital Signs (last 24 hours): Temp Pulse Resp BP Pulse Ox 98.5 F 57 L 18 129/75 98 02/05/17 07:00 02/05/17 07:00 02/05/17 07:00 02/05/17 07:00 02/05/17 07:00 Intake and Output: 02/05/17 02/05/17 06:59 18:59 Intake Total 0 Output Total 3600 Balance -3600 - Medications Medications: Current Medications Ascorbic Acid (Vitamin C 500 Mg Tab) 500 mg PO DAILY [facility] Last Admin: 02/05/17 09:53 Dose: 500 mg Baclofen (Lioresal) 20 mg PO TID [facility] Last Admin: 02/05/17 09:53 Dose: 20 mg Enoxaparin Sodium (Lovenox) 100 mg SC Q12 [facility] PRN Reason: Protocol Last Admin: 02/05/17 10:59 Dose: 100 mg Gabapentin (Neurontin) 300 mg PO TID [facility] PRN Reason: Protocol Last Admin: 02/05/17 09:52 Dose: 300 mg Vancomycin HCl (Vancomycin 1gm) 1 gm in 250 mls @ 167 mls/hr IVPB Q12H [facility] PRN Reason: Protocol Last Admin: 02/05/17 06:29 Dose: 167 mls/hr Meropenem 1 gm/ Dextrose 100 mls @ 100 mls/hr IVPB Q8 [facility] PRN Reason: Protocol Stop: 02/11/17 14:01 Last Admin: 02/05/17 05:41 Dose: 100 mls/hr Lactated Ringer's (Lactated Ringer's) 1,000 mls @ 100 mls/hr IV .Q10H [facility] Last Admin: 02/05/17 09:50 Dose: 100 mls/hr Mupirocin (Bactroban Ointment) 0 gm TOP BID [facility] Last Admin: 02/05/17 10:58 Dose: 1 applic Pantoprazole Sodium (Protonix Ec Tab) 40 mg PO ACB [facility] Last Admin: 02/05/17 09:53 Dose: 40 mg Zinc Sulfate (Zinc Sulfate 220 Mg Cap) 220 mg PO DAILY [facility] Last Admin: 02/05/17 09:53 Dose: 220 mg - Labs Labs: 02/04/17 11:10 02/04/17 11:10 PT 14.3 SECONDS (9.4-12.5) H 02/04/17 11:10 INR 1.29 (0.93-1.08) H 02/04/17 11:10 APTT 32.9 Seconds (25.1-36.5) 02/02/17 08:00 - Additional Findings Additional findings: - Constitutional Appears: Well, Non-toxic, No Acute Distress - Head Exam Head Exam: ATRAUMATIC, NORMAL INSPECTION, NORMOCEPHALIC - Eye Exam Eye Exam: EOMI, Normal appearance, PERRL Pupil Exam: NORMAL ACCOMODATION - ENT Exam ENT Exam: Mucous Membranes Moist, Normal Exam - Neck Exam Neck Exam: Normal Inspection - Respiratory Exam Respiratory Exam: Clear to Ausculation Bilateral, NORMAL BREATHING PATTERN. absent: Rales, Rhonchi, Wheezes, Respiratory Distress - Cardiovascular Exam Cardiovascular Exam: RRR, +S1, +S2. absent: Murmur - GI/Abdominal Exam GI & Abdominal Exam: Soft, Normal Bowel Sounds. absent: Distended, Tenderness Additional comments: abdominal muscles spasm with palpation - Extremities Exam Extremities Exam: absent: Full ROM (paralyzed LE; occasional sapsms present ), Pedal Edema, Tenderness Additional comments: occasional spasms of LE (R>L) RUE PICC line in place - Back Exam Back Exam: NORMAL INSPECTION Additional comments: sacral ulcer dressing clean/dry/intact - Neurological Exam Neurological Exam: Alert, Awake, Oriented x3 - Psychiatric Exam Psychiatric exam: Normal Affect, Normal Mood - Skin Skin Exam: Normal Color, Warm Assessment and Plan - Assessment and Plan (Free Text) Assessment: 51 y/o paraplegic M with past medical history of spinal abcess, laminectomy, DVT presents to the ED form wound care due to possible heel infection of the left foot. Patient admitted for evaluation treatment of clinical osteomyelitis of L heel ulcer being followed by Podiatry and sacral decubitus ulcer s/p surgical debridement POD 2. Plan: 1. Left heel Ulcer-Clinical Osteomyelitis - Blood cultures show no growth after 5 days - L foot wound cx growing corynebacterium - Patient afebrile, no leukocytosis - continue vancomycin and meropenem d9 - Xray of the left foot: no focal lesion, degenerative changes of tibiotalar and subtalar joints. Corticol sclerosis and osteophytes - MRI of left ankle: no evidence of osteomyelitis radiologically - probe to bone meaning clinical osteomyelitis - Continue multipodus boots to bilateral lower extremity - PICC line RUE for long-term abx treatment - ID consulted, recs appreciated - Podiatry consulted, recs appreciated 2. Sacral Decubitus Ulcer - POD2 for surgical debridement of ulcer - surgical pathology report showed fragments of acutely inflamed, necrotic fibroconnective tissue and bone w/ acute osteomyelitis - cont vitamin C and zinc to promote wound healing - sacral wound cx growing corynebacterium - stool c dif negative for Ag and Toxin - Abd/Pelvic CT showing 5 x 4.3 cm pilonidal abscess with associated destructive changes involving the distal sacrum and portion of the coccyx, consistent with acute osteomyelitis. No rectocutaneous fistula seen. - surgery consulted, recs appreciated 3. Paraplegia- chronic - continue home Baclofen - PT evaluation ordered - continue home neurontin - using a haque for incontinence - Colonoscopy planned for today - GI consulted, recs appreciated - colostomy planned for tomorrow (pt was supposed to have this done electively but hasn't had a change) as pt is fecally incontinent, per surgery team - rectal tube not placed due to loss of rectal sphincter tone and surgery planned for tomorrow - air mattress machine 4. History of DVT s/p IVC filter - cont Lovenox - INR therapeutic - Lovenox will be held by surgery team in prep of OR PTX/Lovenox CLD (NPO past mn) Dispo: SW referral for d/c planning Patient was seen, examined and discussed with attending, Dr. Tari Cummings PGY1 <Tutu Marc - Last Filed: 02/07/17 17:43> Objective - Vital Signs/Intake and Output Vital Signs (last 24 hours): Temp Pulse Resp BP Pulse Ox 98.9 F 60 14 123/72 97 02/07/17 12:08 02/07/17 12:08 02/07/17 12:08 02/07/17 12:08 02/06/17 21:03 Intake and Output: 02/07/17 02/07/17 06:59 18:59 Intake Total 600 220 Output Total 125 800 Balance 475 -580 - Medications Medications: Current Medications Ascorbic Acid (Vitamin C 500 Mg Tab) 500 mg PO DAILY [facility] Last Admin: 02/07/17 09:21 Dose: 500 mg Baclofen (Lioresal) 20 mg PO TID [facility] Last Admin: 02/07/17 13:44 Dose: 20 mg Enoxaparin Sodium (Lovenox) 100 mg SC 0000,1200 [facility] PRN Reason: Protocol Last Admin: 02/07/17 13:44 Dose: 100 mg Gabapentin (Neurontin) 300 mg PO TID [facility] PRN Reason: Protocol Last Admin: 02/07/17 13:45 Dose: 300 mg Hydromorphone HCl (Dilaudid) 0.5 mg IVP Q3H PRN PRN Reason: Pain, moderate (4-7) Last Admin: 02/07/17 13:43 Dose: 0.5 mg Vancomycin HCl (Vancomycin 1gm) 1 gm in 250 mls @ 167 mls/hr IVPB Q12H [facility] PRN Reason: Protocol Last Admin: 02/07/17 07:10 Dose: 167 mls/hr Meropenem 1 gm/ Dextrose 100 mls @ 100 mls/hr IVPB Q8 [facility] PRN Reason: Protocol Stop: 02/11/17 14:01 Last Admin: 02/07/17 13:44 Dose: 100 mls/hr Lactated Ringer's (Lactated Ringer's) 1,000 mls @ 100 mls/hr IV .Q10H [facility] Last Admin: 02/07/17 11:30 Dose: 100 mls/hr Mupirocin (Bactroban Ointment) 0 gm TOP BID [facility] Last Admin: 02/07/17 17:36 Dose: Not Given Pantoprazole Sodium (Protonix Ec Tab) 40 mg PO ACB [facility] Last Admin: 02/07/17 09:23 Dose: 40 mg Zinc Sulfate (Zinc Sulfate 220 Mg Cap) 220 mg PO DAILY [facility] Last Admin: 02/07/17 09:21 Dose: 220 mg - Labs Labs: 02/07/17 06:00 02/07/17 06:00 PT 14.2 SECONDS (9.4-12.5) H 02/07/17 10:30 INR 1.28 (0.93-1.08) H 02/07/17 10:30 APTT 33.7 Seconds (25.1-36.5) 02/07/17 10:30 Attending/Attestation - Attestation I have personally seen and examined this patient.: Yes I have fully participated in the care of the patient.: Yes I have reviewed all pertinent clinical information, including history, physical exam and plan: Yes Notes (Text): I have seen and examined the patient with the resident. Agree with the above note with the following additions/ exceptions: Briefly this is 51 year old bedridden male with history of spinal abscess, laminectomy, paraplegia, DVT who is admitted with Left heel osteomyelitis clinically and sacral decubitus / osteomyelitis on vancomycin and meropenem. Patient needs 4-6 weeks of IV antibiotics. Picc line already in place. CT abdomen and pelvis showed sacral osteomyelitis. Patient underwent sacral debridement and colonoscopy which did not reveal any abnormalities. There is a plan for possible colostomy this week. Continue Mvi, zinc and vitamin C. PT recommended CATARINO. Upon discharge the patient will follow-up with PMD . Dr Tutu Marc
--- NOTE | 2017-02-05 14:48 | CP.PCM.PN ---
<Xiomara Canales - Last Filed: 02/05/17 23:49> Subjective - Date & Time of Evaluation Date of Evaluation: 02/05/17 Time of Evaluation: 14:48 - Subjective Subjective: 51 y/o male seen at bedside with attending Dr. Jalloh for left heel pressure ulcerations. Pt denies any acute events overnight and denies any pain at this time. Pt has kept dressings clean dry and intact to left heel and has been wearing offloading boots at all times. Pt denies F/C/N/V/CP/SOB Objective - Vital Signs/Intake and Output Vital Signs (last 24 hours): Temp Pulse Resp BP Pulse Ox 98.5 F 57 L 18 129/75 98 02/05/17 07:00 02/05/17 07:00 02/05/17 07:00 02/05/17 07:00 02/05/17 07:00 Intake and Output: 02/05/17 02/05/17 06:59 18:59 Intake Total 0 760 Output Total 3600 1500 Balance -3600 -740 - Medications Medications: Current Medications Ascorbic Acid (Vitamin C 500 Mg Tab) 500 mg PO DAILY [facility] Last Admin: 02/05/17 09:53 Dose: 500 mg Baclofen (Lioresal) 20 mg PO TID [facility] Last Admin: 02/05/17 13:14 Dose: 20 mg Enoxaparin Sodium (Lovenox) 100 mg SC Q12 [facility] PRN Reason: Protocol Last Admin: 02/05/17 10:59 Dose: 100 mg Gabapentin (Neurontin) 300 mg PO TID [facility] PRN Reason: Protocol Last Admin: 02/05/17 13:14 Dose: 300 mg Vancomycin HCl (Vancomycin 1gm) 1 gm in 250 mls @ 167 mls/hr IVPB Q12H [facility] PRN Reason: Protocol Last Admin: 02/05/17 06:29 Dose: 167 mls/hr Meropenem 1 gm/ Dextrose 100 mls @ 100 mls/hr IVPB Q8 [facility] PRN Reason: Protocol Stop: 02/11/17 14:01 Last Admin: 02/05/17 13:13 Dose: 100 mls/hr Lactated Ringer's (Lactated Ringer's) 1,000 mls @ 100 mls/hr IV .Q10H [facility] Last Admin: 02/05/17 09:50 Dose: 100 mls/hr Mupirocin (Bactroban Ointment) 0 gm TOP BID [facility] Last Admin: 02/05/17 10:58 Dose: 1 applic Pantoprazole Sodium (Protonix Ec Tab) 40 mg PO ACB [facility] Last Admin: 02/05/17 09:53 Dose: 40 mg Zinc Sulfate (Zinc Sulfate 220 Mg Cap) 220 mg PO DAILY [facility] Last Admin: 02/05/17 09:53 Dose: 220 mg - Labs Labs: 02/04/17 11:10 02/04/17 11:10 PT 14.3 SECONDS (9.4-12.5) H 02/04/17 11:10 INR 1.29 (0.93-1.08) H 02/04/17 11:10 APTT 32.9 Seconds (25.1-36.5) 02/02/17 08:00 - Constitutional Appears: Well, Non-toxic, No Acute Distress - Exam Additional comments: LE focused examination: Vasc: DP/PT pulses palpable 2/4 B/L. Temperature gradient warm to warm B/L. CFT < 3 sec to all digits. Minimal non-pitting edema localized to L heel. Neuro: Protective sensation grossly diminished B/L Derm: L posteromedial heel exhibits circular 2.5cm diameter ulceration with 25% fibrotic and 75% granular base that is slightly boggy. Fat pad globules noted to base of wound. Fibrotic slough lies around periphery of wound near margins. Minimal sanguinous drainage noted on dressing with no active drainage on exam. . (+)Probe to bone on initial admission, now negative with tissue filling wound bed that is mixed fibrotic and granular in nature. Erythema noted to jose manuel-wound previously is resolving at this time. Additional 1.5cm x 0.8cm x 0.1cm superficial ulceration noted to posterior heel with 75% granular and 25% fibrotic base at this time, no malodor, no fluctuance, no bogginess, no undermining, and negative probe to bone. Ortho: Involuntary muscle spasms noted to B/L LE, L>R. No tenderness to palpation of L heel at site of pressure ulcerations. - Neurological Exam Neurological Exam: Alert, Awake, Oriented x3 - Psychiatric Exam Psychiatric exam: Normal Affect, Normal Mood Assessment and Plan - Assessment and Plan (Free Text) Assessment: 51 y/o paraplegic male with left heel pressure ulceration that previously probed to bone, now healing. Pt also has additional posterior heel superficial ulceration secondary to pressure Plan: Patient seen and evaluated at bedside with attending Dr. Jalloh Chart, labs and vitals reviewed: afebrile WBC 7.4 X-rays of L heel are negative for erosive cortical changes, no fractures or dislocations MRI reveals no erosive cortical changes, no marrow edema, no signs of osteomyelitis Left heel wound culture final report = Corynebacterium species Per ID: pt to continue Vancomycin and Merrem; wound cx only growing Corynebacterium but is more likely superficial swab - aim for 4-6 weeks of antibiotics PICC line in place to R arm Wounds cleansed with saline Aseptic excisional debridement of fibrotic sloughing tissue from wound bed with sterile forceps and sterile scissors down to healthy granular tissue Pt tolerated procedure without incident L heel wounds dressed with Bactroban, ABD and DSD Multipodus boots applied to B/L lower extremities- please keep on at all times Podiatry will continue to follow patient while in house <Patricia Jalloh - Last Filed: 02/08/17 13:49> Objective - Vital Signs/Intake and Output Vital Signs (last 24 hours): Temp Pulse Resp BP Pulse Ox 97.7 F 62 20 114/63 98 02/08/17 11:44 02/08/17 11:44 02/08/17 11:44 02/08/17 11:44 02/08/17 05:42 Intake and Output: 02/08/17 02/08/17 06:59 18:59 Intake Total 1350 Balance 1350 - Medications Medications: Current Medications Ascorbic Acid (Vitamin C 500 Mg Tab) 500 mg PO DAILY [facility] Last Admin: 02/08/17 10:04 Dose: 500 mg Baclofen (Lioresal) 20 mg PO TID [facility] Last Admin: 02/08/17 13:09 Dose: 20 mg Enoxaparin Sodium (Lovenox) 100 mg SC 0000,1200 [facility] PRN Reason: Protocol Last Admin: 02/08/17 13:07 Dose: 100 mg Gabapentin (Neurontin) 300 mg PO TID [facility] PRN Reason: Protocol Last Admin: 02/08/17 13:31 Dose: 300 mg Hydromorphone HCl (Dilaudid) 0.5 mg IVP Q3H PRN PRN Reason: Pain, moderate (4-7) Last Admin: 02/08/17 10:37 Dose: 0.5 mg Vancomycin HCl (Vancomycin 1gm) 1 gm in 250 mls @ 167 mls/hr IVPB Q12H [facility] PRN Reason: Protocol Last Admin: 02/08/17 05:14 Dose: 167 mls/hr Meropenem 1 gm/ Dextrose 100 mls @ 100 mls/hr IVPB Q8 [facility] PRN Reason: Protocol Stop: 02/11/17 14:01 Last Admin: 02/08/17 13:09 Dose: 100 mls/hr Mupirocin (Bactroban Ointment) 0 gm TOP BID [facility] Last Admin: 02/08/17 10:04 Dose: Not Given Pantoprazole Sodium (Protonix Ec Tab) 40 mg PO ACB [facility] Last Admin: 02/08/17 08:57 Dose: 40 mg Zinc Sulfate (Zinc Sulfate 220 Mg Cap) 220 mg PO DAILY [facility] Last Admin: 02/08/17 10:05 Dose: 220 mg - Labs Labs: 02/08/17 06:15 02/08/17 06:15 PT 14.2 SECONDS (9.4-12.5) H 02/08/17 06:15 INR 1.28 (0.93-1.08) H 02/08/17 06:15 APTT 35.7 Seconds (25.1-36.5) 02/08/17 06:15 Attending/Attestation - Attestation I have personally seen and examined this patient.: Yes I have fully participated in the care of the patient.: Yes I have reviewed all pertinent clinical information, including history, physical exam and plan: Yes
--- NOTE | 2017-02-05 17:19 | CP.PCM.PN ---
Subjective - Date & Time of Evaluation Date of Evaluation: 02/05/17 Time of Evaluation: 11:20 - Subjective Subjective: No new complaints, no fevers, no increased pain in the sacral area. Objective - Vital Signs/Intake and Output Vital Signs (last 24 hours): Temp Pulse Resp BP Pulse Ox 98.5 F 57 L 18 129/75 98 02/05/17 07:00 02/05/17 07:00 02/05/17 07:00 02/05/17 07:00 02/05/17 07:00 Intake and Output: 02/05/17 02/05/17 06:59 18:59 Intake Total 0 Output Total 3600 Balance -3600 - Medications Medications: Current Medications Ascorbic Acid (Vitamin C 500 Mg Tab) 500 mg PO DAILY [facility] Last Admin: 02/04/17 16:26 Dose: 500 mg Baclofen (Lioresal) 20 mg PO TID [facility] Last Admin: 02/04/17 17:00 Dose: 20 mg Enoxaparin Sodium (Lovenox) 100 mg SC Q12 [facility] PRN Reason: Protocol Last Admin: 02/04/17 21:24 Dose: 100 mg Gabapentin (Neurontin) 300 mg PO TID [facility] PRN Reason: Protocol Last Admin: 02/04/17 17:00 Dose: 300 mg Vancomycin HCl (Vancomycin 1gm) 1 gm in 250 mls @ 167 mls/hr IVPB Q12H [facility] PRN Reason: Protocol Last Admin: 02/05/17 06:29 Dose: 167 mls/hr Meropenem 1 gm/ Dextrose 100 mls @ 100 mls/hr IVPB Q8 [facility] PRN Reason: Protocol Stop: 02/11/17 14:01 Last Admin: 02/05/17 05:41 Dose: 100 mls/hr Lactated Ringer's (Lactated Ringer's) 1,000 mls @ 100 mls/hr IV .Q10H [facility] Mupirocin (Bactroban Ointment) 0 gm TOP BID [facility] Last Admin: 02/04/17 11:00 Dose: Not Given Pantoprazole Sodium (Protonix Ec Tab) 40 mg PO ACB [facility] Last Admin: 02/04/17 10:51 Dose: 40 mg Zinc Sulfate (Zinc Sulfate 220 Mg Cap) 220 mg PO DAILY [facility] Last Admin: 02/04/17 16:26 Dose: 220 mg - Labs Labs: 02/04/17 11:10 02/04/17 11:10 PT 14.3 SECONDS (9.4-12.5) H 02/04/17 11:10 INR 1.29 (0.93-1.08) H 02/04/17 11:10 APTT 32.9 Seconds (25.1-36.5) 02/02/17 08:00 - Constitutional Appears: Non-toxic, No Acute Distress - Head Exam Head Exam: NORMAL INSPECTION - ENT Exam ENT Exam: Mucous Membranes Moist - Neck Exam Neck Exam: absent: Lymphadenopathy, Meningismus - Respiratory Exam Respiratory Exam: Decreased Breath Sounds - Cardiovascular Exam Cardiovascular Exam: +S1, +S2 - GI/Abdominal Exam GI & Abdominal Exam: Soft. absent: Tenderness Assessment and Plan - Assessment and Plan (Free Text) Plan: Assessment Pilonidal abscess and sacral decubitus infection / osteomyelitis as well as left heel ulcer infection S/P sacral debridement POD #3 history of epidural abscess secondary to Strep pneumoniae with associated cord compression and lower extremity paralysis and neurogenic bladder S/P neurosurgery for abscess drainage and laminectomy history of partial small bowel obstruction significant smoking history alcohol abuse obesity with BMI 40 Plan continue Vancomycin and Merrem ; wound cx only growing Corynebacterium but is more likely superficial swab - aim for 4-6 weeks of antibiotics with weekly ESR , CRP, CBC, CMP while on antibiotics; follow up Vanco trough today follow up OR pathology will continue to monitor clinically
[2017-02-06] MEDS: Meropenem 1 GM in Dextrose 5% In Water 100 ML IVPB SCH ×2 (06:38→14:40)
[2017-02-06 07:21] LABS: BASO # 0.02 K/mm3 (0.0-2.0); BASO % 0.5 % (0.0-3.0); EOS # 0.1 (0.0-0.7); GRAN # 2.21 (1.4-6.5); GRAN % 54.8 % (50.0-68.0); HEMATOCRIT 30.1 % (42.0-52.0); LYMPH # 1.1 (1.2-3.4); LYMPH % 27.3 % (22.0-35.0); MEAN CELL VOLUME 84.3 fl (80.0-105.0); MEAN CORPUSCULAR HEMOGLOBIN 26.1 pg (25.0-35.0); MEAN CORPUSCULAR HGB CONC 30.9 g/dl (31.0-37.0); MEAN PLATELET VOLUME 10.9 fl (7.0-11.0); MONO # 0.6 (0.1-0.6); MONO % 15.4 % (1.0-6.0); RED CELL DISTRIBUTION WIDTH 15.1 % (11.5-14.5)
[2017-02-06 07:31] LABS: INR 1.25 (0.93-1.08); PARTIAL THROMBOPLASTIN TIME 31.6 Seconds (25.1-36.5)
[2017-02-06 07:41] LABS: ALB/GLOB RATIO 0.8 (1.1-1.8); ALKALINE PHOSPHATASE 64 U/L (38-126); ALT/SGPT 33 U/L (7-56); AST/SGOT 22 U/L (17-59); BILIRUBIN,TOTAL 0.4 mg/dL (0.2-1.3); BLOOD UREA NITROGEN 9 mg/dL (7-21); CALCIUM 9.4 mg/dL (8.4-10.5); CARBON DIOXIDE 30 mmol/L (21-33); CHLORIDE 105 mmol/L (98-107); GFR AFRICAN-AMERICAN > 60; GLUCOSE,RANDOM 98 mg/dL (70-110); POTASSIUM 3.9 mmol/L (3.6-5.0); SODIUM 141 mmol/L (132-148); TOTAL PROTEIN 6.9 g/dL (5.8-8.3)
[2017-02-06] MEDS: Vancomycin 1gm in NS 250ml 1 GM/250 ML BAG IVPB SCH ×3 (08:06→22:26)
[2017-02-06] MEDS: Pantoprazole 40 mg EC Tab PO SCH (09:04)
[2017-02-06] MEDS ORDERED: Vancomycin 1gm in NS 250ml 1 GM/250 ML BAG IVPB STA (09:20)
--- NOTE | 2017-02-06 12:58 | CP.PCM.PN ---
<Paul Cummings - Last Filed: 02/06/17 13:14> Subjective - Date & Time of Evaluation Date of Evaluation: 02/06/17 Time of Evaluation: 10:10 - Subjective Subjective: patient was seen and examined bedside. there were no acute events and pt offered no complaints of chest pain, sob, abdominal pain, n/v/d, fevers/chills or cough. pt will be going for colostomy later today. Objective - Vital Signs/Intake and Output Vital Signs (last 24 hours): Temp Pulse Resp BP Pulse Ox 98.2 F 52 L 18 119/72 98 02/06/17 08:59 02/06/17 08:59 02/06/17 08:59 02/06/17 08:59 02/06/17 08:59 Intake and Output: 02/06/17 02/06/17 06:59 18:59 Intake Total 720 Output Total 3600 Balance -2880 - Medications Medications: Current Medications Ascorbic Acid (Vitamin C 500 Mg Tab) 500 mg PO DAILY [facility] Last Admin: 02/06/17 09:44 Dose: 500 mg Baclofen (Lioresal) 20 mg PO TID [facility] Last Admin: 02/06/17 09:44 Dose: 20 mg Enoxaparin Sodium (Lovenox) 100 mg SC Q12 [facility] PRN Reason: Protocol Last Admin: 02/05/17 10:59 Dose: 100 mg Gabapentin (Neurontin) 300 mg PO TID [facility] PRN Reason: Protocol Last Admin: 02/06/17 09:44 Dose: 300 mg Vancomycin HCl (Vancomycin 1gm) 1 gm in 250 mls @ 167 mls/hr IVPB Q12H [facility] PRN Reason: Protocol Last Admin: 02/06/17 08:06 Dose: 167 mls/hr Meropenem 1 gm/ Dextrose 100 mls @ 100 mls/hr IVPB Q8 [facility] PRN Reason: Protocol Stop: 02/11/17 14:01 Last Admin: 02/06/17 06:38 Dose: 100 mls/hr Lactated Ringer's (Lactated Ringer's) 1,000 mls @ 100 mls/hr IV .Q10H [facility] Last Admin: 02/05/17 09:50 Dose: 100 mls/hr Mupirocin (Bactroban Ointment) 0 gm TOP BID [facility] Last Admin: 02/05/17 18:15 Dose: Not Given Pantoprazole Sodium (Protonix Ec Tab) 40 mg PO ACB [facility] Last Admin: 02/06/17 09:04 Dose: Not Given Zinc Sulfate (Zinc Sulfate 220 Mg Cap) 220 mg PO DAILY [facility] Last Admin: 02/06/17 09:44 Dose: 220 mg - Labs Labs: 02/06/17 07:00 02/06/17 07:00 PT 13.8 SECONDS (9.4-12.5) H 02/06/17 07:00 INR 1.25 (0.93-1.08) H 02/06/17 07:00 APTT 31.6 Seconds (25.1-36.5) 02/06/17 07:00 - Additional Findings Additional findings: - Constitutional Appears: Well, Non-toxic, No Acute Distress - Head Exam Head Exam: ATRAUMATIC, NORMAL INSPECTION, NORMOCEPHALIC - Eye Exam Eye Exam: EOMI, Normal appearance, PERRL Pupil Exam: NORMAL ACCOMODATION - ENT Exam ENT Exam: Mucous Membranes Moist, Normal Exam - Neck Exam Neck Exam: Normal Inspection - Respiratory Exam Respiratory Exam: Clear to Ausculation Bilateral, NORMAL BREATHING PATTERN. absent: Rales, Rhonchi, Wheezes, Respiratory Distress - Cardiovascular Exam Cardiovascular Exam: RRR, +S1, +S2. absent: Murmur - GI/Abdominal Exam GI & Abdominal Exam: Soft, Normal Bowel Sounds. absent: Distended, Tenderness Additional comments: abdominal muscles spasm with palpation - Extremities Exam Extremities Exam: absent: Full ROM (paralyzed LE; occasional sapsms present ), Pedal Edema, Tenderness Additional comments: occasional spasms of LE (R>L) RUE PICC line in place b/l LE in boots - Back Exam Back Exam: NORMAL INSPECTION Additional comments: sacral ulcer dressing clean/dry/intact - Neurological Exam Neurological Exam: Alert, Awake, Oriented x3 - Psychiatric Exam Psychiatric exam: Normal Affect, Normal Mood - Skin Skin Exam: Normal Color, Warm Assessment and Plan - Assessment and Plan (Free Text) Assessment: 51 y/o paraplegic M with past medical history of spinal abcess, laminectomy, DVT presents to the ED form wound care due to possible heel infection of the left foot. Patient admitted for evaluation treatment of clinical osteomyelitis of L heel ulcer being followed by Podiatry and sacral decubitus ulcer s/p surgical debridement POD 3. Plan: 1. Left heel Ulcer- Clinical Osteomyelitis - Blood cultures show no growth after 5 days - continue vancomycin and meropenem d10 - Continue multipodus boots to bilateral lower extremity - Patient afebrile, no leukocytosis - L foot wound cx growing corynebacterium - Xray of the left foot: no focal lesion, degenerative changes of tibiotalar and subtalar joints. Corticol sclerosis and osteophytes - MRI of left ankle: no evidence of osteomyelitis radiologically - probe to bone meaning clinical osteomyelitis - PICC line RUE for long-term abx treatment - ID consulted, recs appreciated - Podiatry consulted, recs appreciated 2. Sacral Decubitus Ulcer - POD3 for surgical debridement of ulcer - surgical pathology report showed fragments of acutely inflamed, necrotic fibroconnective tissue and bone w/ acute osteomyelitis - cont vitamin C and zinc to promote wound healing - sacral wound cx growing corynebacterium - stool c dif negative for Ag and Toxin - Abd/Pelvic CT showing 5 x 4.3 cm pilonidal abscess with associated destructive changes involving the distal sacrum and portion of the coccyx, consistent with acute osteomyelitis. No rectocutaneous fistula seen. - surgery consulted, recs appreciated 3. Paraplegia- chronic - colostomy planned for today (pt was supposed to have this done electively but hasn't had a change) as pt is fecally incontinent, per surgery team - continue home Baclofen - PT evaluation, rec [facility]INO and continued rehab - continue home neurontin - using a haque for incontinence - Colonoscopy showed normal colon but prep was poor - GI consulted, recs appreciated - air mattress machine 4. History of DVT s/p IVC filter - cont Lovenox - INR therapeutic PTX/Lovenox CLD Dispo: SW referral for d/c planning Patient was seen, examined and discussed with attending, Dr. Tari Cummings PGY1 <Tutu Marc - Last Filed: 02/07/17 17:47> Objective - Vital Signs/Intake and Output Vital Signs (last 24 hours): Temp Pulse Resp BP Pulse Ox 98.9 F 60 14 123/72 97 02/07/17 12:08 02/07/17 12:08 02/07/17 12:08 02/07/17 12:08 02/06/17 21:03 Intake and Output: 02/07/17 02/07/17 06:59 18:59 Intake Total 600 220 Output Total 125 800 Balance 475 -580 - Medications Medications: Current Medications Ascorbic Acid (Vitamin C 500 Mg Tab) 500 mg PO DAILY [facility] Last Admin: 02/07/17 09:21 Dose: 500 mg Baclofen (Lioresal) 20 mg PO TID [facility] Last Admin: 02/07/17 13:44 Dose: 20 mg Enoxaparin Sodium (Lovenox) 100 mg SC 0000,1200 [facility] PRN Reason: Protocol Last Admin: 02/07/17 13:44 Dose: 100 mg Gabapentin (Neurontin) 300 mg PO TID [facility] PRN Reason: Protocol Last Admin: 02/07/17 13:45 Dose: 300 mg Hydromorphone HCl (Dilaudid) 0.5 mg IVP Q3H PRN PRN Reason: Pain, moderate (4-7) Last Admin: 02/07/17 13:43 Dose: 0.5 mg Vancomycin HCl (Vancomycin 1gm) 1 gm in 250 mls @ 167 mls/hr IVPB Q12H [facility] PRN Reason: Protocol Last Admin: 02/07/17 07:10 Dose: 167 mls/hr Meropenem 1 gm/ Dextrose 100 mls @ 100 mls/hr IVPB Q8 [facility] PRN Reason: Protocol Stop: 02/11/17 14:01 Last Admin: 02/07/17 13:44 Dose: 100 mls/hr Lactated Ringer's (Lactated Ringer's) 1,000 mls @ 100 mls/hr IV .Q10H [facility] Last Admin: 02/07/17 11:30 Dose: 100 mls/hr Mupirocin (Bactroban Ointment) 0 gm TOP BID [facility] Last Admin: 02/07/17 17:36 Dose: Not Given Pantoprazole Sodium (Protonix Ec Tab) 40 mg PO ACB [facility] Last Admin: 02/07/17 09:23 Dose: 40 mg Zinc Sulfate (Zinc Sulfate 220 Mg Cap) 220 mg PO DAILY [facility] Last Admin: 02/07/17 09:21 Dose: 220 mg - Labs Labs: 02/07/17 06:00 02/07/17 06:00 PT 14.2 SECONDS (9.4-12.5) H 02/07/17 10:30 INR 1.28 (0.93-1.08) H 02/07/17 10:30 APTT 33.7 Seconds (25.1-36.5) 02/07/17 10:30 Attending/Attestation - Attestation I have personally seen and examined this patient.: Yes I have fully participated in the care of the patient.: Yes I have reviewed all pertinent clinical information, including history, physical exam and plan: Yes Notes (Text): I have seen and examined the patient with the resident. Agree with the above note with the following additions/ exceptions: Briefly this is 51 year old bedridden male with history of spinal abscess, laminectomy, paraplegia, DVT who is admitted with Left heel osteomyelitis clinically and sacral decubitus / osteomyelitis on vancomycin and meropenem. Patient needs 4-6 weeks of IV antibiotics. Picc line already in place. CT abdomen and pelvis showed sacral osteomyelitis. Patient underwent sacral debridement and colonoscopy which did not reveal any abnormalities. There is a plan for colostomy today. Continue Mvi , zinc and vitamin C. PT recommended CATARINO. Upon discharge the patient will follow -up with PMD . Dr Tutu Marc
--- NOTE | 2017-02-06 14:27 | CP.PCM.PN ---
<ParkerXiomara - Last Filed: 02/06/17 14:27> Subjective - Date & Time of Evaluation Date of Evaluation: 02/06/17 Time of Evaluation: 11:35 - Subjective Subjective: 51 y/o paraplegic male seen at bedside for left heel pressure ulcerations. Pt denies any acute events overnight and is feeling well today. Pt says he may be going for surgery later today for his stoma. Pt is aware he will go to rehab once his surgery has been done so he can get his antibiotics. Pt denies any pain at this time. Pt denies F/C/N/V/CP/SOB. Objective - Vital Signs/Intake and Output Vital Signs (last 24 hours): Temp Pulse Resp BP Pulse Ox 98.2 F 52 L 18 119/72 98 02/06/17 08:59 02/06/17 08:59 02/06/17 08:59 02/06/17 08:59 02/06/17 08:59 Intake and Output: 02/06/17 02/06/17 06:59 18:59 Intake Total 720 Output Total 3600 Balance -2880 - Medications Medications: Current Medications Ascorbic Acid (Vitamin C 500 Mg Tab) 500 mg PO DAILY [facility] Last Admin: 02/06/17 09:44 Dose: 500 mg Baclofen (Lioresal) 20 mg PO TID [facility] Last Admin: 02/06/17 09:44 Dose: 20 mg Enoxaparin Sodium (Lovenox) 100 mg SC Q12 [facility] PRN Reason: Protocol Last Admin: 02/05/17 10:59 Dose: 100 mg Gabapentin (Neurontin) 300 mg PO TID [facility] PRN Reason: Protocol Last Admin: 02/06/17 09:44 Dose: 300 mg Vancomycin HCl (Vancomycin 1gm) 1 gm in 250 mls @ 167 mls/hr IVPB Q12H [facility] PRN Reason: Protocol Last Admin: 02/06/17 08:06 Dose: 167 mls/hr Meropenem 1 gm/ Dextrose 100 mls @ 100 mls/hr IVPB Q8 [facility] PRN Reason: Protocol Stop: 02/11/17 14:01 Last Admin: 02/06/17 06:38 Dose: 100 mls/hr Lactated Ringer's (Lactated Ringer's) 1,000 mls @ 100 mls/hr IV .Q10H [facility] Last Admin: 02/05/17 09:50 Dose: 100 mls/hr Mupirocin (Bactroban Ointment) 0 gm TOP BID [facility] Last Admin: 02/05/17 18:15 Dose: Not Given Pantoprazole Sodium (Protonix Ec Tab) 40 mg PO ACB [facility] Last Admin: 02/06/17 09:04 Dose: Not Given Zinc Sulfate (Zinc Sulfate 220 Mg Cap) 220 mg PO DAILY [facility] Last Admin: 02/06/17 09:44 Dose: 220 mg - Labs Labs: 02/06/17 07:00 02/06/17 07:00 PT 13.8 SECONDS (9.4-12.5) H 02/06/17 07:00 INR 1.25 (0.93-1.08) H 02/06/17 07:00 APTT 31.6 Seconds (25.1-36.5) 02/06/17 07:00 - Constitutional Appears: Well, Non-toxic, No Acute Distress - Extremities Exam Additional comments: LE focused examination: Vasc: DP/PT pulses palpable 2/4 B/L. Temperature gradient warm to warm B/L. CFT < 3 sec to all digits. Minimal non-pitting edema localized to L heel. Neuro: Protective sensation grossly diminished B/L Derm: L posteromedial heel exhibits circular 2.5cm diameter ulceration with 90% granular and 10% fibrotic base. Fat pad globules noted to base of wound. Bogginess decreasing since initial admission. Minimal fibrotic slough lies around periphery of wound near margins. Minimal sanguinous drainage noted on dressing with no active drainage on exam. . (+)Probe to bone on initial admission, now negative with tissue filling wound bed that is mixed fibrotic and granular in nature. Erythema noted to jose manuel-wound previously is resolving at this time. Additional 1.5cm x 0.8cm x 0.1cm superficial ulceration noted to posterior heel with 90% granular and 10% fibrotic base at this time, no malodor , no fluctuance, no bogginess, no undermining, and negative probe to bone. Ortho: Involuntary muscle spasms noted to B/L LE, L>R. No tenderness to palpation of L heel at site of pressure ulcerations. - Neurological Exam Neurological Exam: Alert, Awake, Oriented x3 - Psychiatric Exam Psychiatric exam: Normal Affect, Normal Mood Assessment and Plan - Assessment and Plan (Free Text) Assessment: 51 y/o paraplegic male with left heel pressure ulceration that previously probed to bone, now healing. Pt also has additional posterior heel superficial ulceration secondary to pressure Plan: Patient seen and evaluated at bedside Discussed plan with attending Dr. Mojica Chart, labs and vitals reviewed: afebrile WBC 4.0 X-rays of L heel are negative for erosive cortical changes, no fractures or dislocations MRI reveals no erosive cortical changes, no marrow edema, no signs of osteomyelitis Left heel wound culture final report = Corynebacterium species Per ID: pt to continue Vancomycin and Merrem; wound cx only growing Corynebacterium but is more likely superficial swab - aim for 4-6 weeks of antibiotics PICC line in place to R arm Wounds cleansed with saline L heel wounds dressed with Bactroban, ABD and DSD Multipodus boots applied to B/L lower extremities- please keep on at all times Upon D/C, pt to follow up in wound care center Podiatry will continue to follow patient while in house <Adair Mojica - Last Filed: 02/07/17 08:30> Objective - Vital Signs/Intake and Output Vital Signs (last 24 hours): Temp Pulse Resp BP Pulse Ox 98.1 F 69 12 104/56 L 97 02/06/17 21:03 02/06/17 21:03 02/06/17 21:03 02/06/17 21:03 02/06/17 21:03 Intake and Output: 02/07/17 02/07/17 06:59 18:59 Intake Total 600 Output Total 125 Balance 475 - Medications Medications: Current Medications Ascorbic Acid (Vitamin C 500 Mg Tab) 500 mg PO DAILY [facility] Last Admin: 02/06/17 09:44 Dose: 500 mg Baclofen (Lioresal) 20 mg PO TID [facility] Last Admin: 02/06/17 19:43 Dose: Not Given Enoxaparin Sodium (Lovenox) 100 mg SC 0000,1200 [facility] PRN Reason: Protocol Last Admin: 02/07/17 00:08 Dose: 100 mg Gabapentin (Neurontin) 300 mg PO TID [facility] PRN Reason: Protocol Last Admin: 02/06/17 19:43 Dose: Not Given Hydromorphone HCl (Dilaudid) 0.5 mg IVP Q3H PRN PRN Reason: Pain, moderate (4-7) Last Admin: 02/07/17 07:12 Dose: 0.5 mg Vancomycin HCl (Vancomycin 1gm) 1 gm in 250 mls @ 167 mls/hr IVPB Q12H [facility] PRN Reason: Protocol Last Admin: 02/07/17 07:10 Dose: 167 mls/hr Meropenem 1 gm/ Dextrose 100 mls @ 100 mls/hr IVPB Q8 [facility] PRN Reason: Protocol Stop: 02/11/17 14:01 Last Admin: 02/07/17 06:18 Dose: 100 mls/hr Lactated Ringer's (Lactated Ringer's) 1,000 mls @ 100 mls/hr IV .Q10H [facility] Last Admin: 02/07/17 05:10 Dose: Not Given Mupirocin (Bactroban Ointment) 0 gm TOP BID [facility] Last Admin: 02/05/17 18:15 Dose: Not Given Pantoprazole Sodium (Protonix Ec Tab) 40 mg PO ACB [facility] Last Admin: 02/06/17 09:04 Dose: Not Given Zinc Sulfate (Zinc Sulfate 220 Mg Cap) 220 mg PO DAILY [facility] Last Admin: 02/06/17 09:44 Dose: 220 mg - Labs Labs: 02/07/17 06:00 02/07/17 06:00 PT 13.8 SECONDS (9.4-12.5) H 02/06/17 07:00 INR 1.25 (0.93-1.08) H 02/06/17 07:00 APTT 31.6 Seconds (25.1-36.5) 02/06/17 07:00 Attending/Attestation - Attestation I have personally seen and examined this patient.: Yes I have fully participated in the care of the patient.: Yes I have reviewed all pertinent clinical information, including history, physical exam and plan: Yes
--- NOTE | 2017-02-06 16:30 | CP.PCM.PN ---
Subjective - Date & Time of Evaluation Date of Evaluation: 02/06/17 Time of Evaluation: 11:35 - Subjective Subjective: Comfortable, not in distress, afebrile. Objective - Vital Signs/Intake and Output Vital Signs (last 24 hours): Temp Pulse Resp BP Pulse Ox 98.2 F 52 L 18 119/72 98 02/06/17 08:59 02/06/17 08:59 02/06/17 08:59 02/06/17 08:59 02/06/17 08:59 Intake and Output: 02/06/17 02/06/17 06:59 18:59 Intake Total 720 Output Total 3600 Balance -2880 - Medications Medications: Current Medications Ascorbic Acid (Vitamin C 500 Mg Tab) 500 mg PO DAILY [facility] Last Admin: 02/05/17 09:53 Dose: 500 mg Baclofen (Lioresal) 20 mg PO TID [facility] Last Admin: 02/05/17 17:20 Dose: 20 mg Enoxaparin Sodium (Lovenox) 100 mg SC Q12 [facility] PRN Reason: Protocol Last Admin: 02/05/17 10:59 Dose: 100 mg Gabapentin (Neurontin) 300 mg PO TID [facility] PRN Reason: Protocol Last Admin: 02/05/17 17:20 Dose: 300 mg Vancomycin HCl (Vancomycin 1gm) 1 gm in 250 mls @ 167 mls/hr IVPB Q12H [facility] PRN Reason: Protocol Last Admin: 02/06/17 08:06 Dose: 167 mls/hr Meropenem 1 gm/ Dextrose 100 mls @ 100 mls/hr IVPB Q8 [facility] PRN Reason: Protocol Stop: 02/11/17 14:01 Last Admin: 02/06/17 06:38 Dose: 100 mls/hr Lactated Ringer's (Lactated Ringer's) 1,000 mls @ 100 mls/hr IV .Q10H [facility] Last Admin: 02/05/17 09:50 Dose: 100 mls/hr Mupirocin (Bactroban Ointment) 0 gm TOP BID [facility] Last Admin: 02/05/17 18:15 Dose: Not Given Pantoprazole Sodium (Protonix Ec Tab) 40 mg PO ACB [facility] Last Admin: 02/06/17 09:04 Dose: Not Given Zinc Sulfate (Zinc Sulfate 220 Mg Cap) 220 mg PO DAILY [facility] Last Admin: 02/05/17 09:53 Dose: 220 mg - Labs Labs: 02/06/17 07:00 02/06/17 07:00 PT 13.8 SECONDS (9.4-12.5) H 02/06/17 07:00 INR 1.25 (0.93-1.08) H 02/06/17 07:00 APTT 31.6 Seconds (25.1-36.5) 02/06/17 07:00 - Constitutional Appears: Non-toxic, No Acute Distress - Head Exam Head Exam: NORMAL INSPECTION - ENT Exam ENT Exam: Mucous Membranes Moist - Neck Exam Neck Exam: absent: Lymphadenopathy, Meningismus - Respiratory Exam Respiratory Exam: Decreased Breath Sounds - Cardiovascular Exam Cardiovascular Exam: +S1, +S2 - GI/Abdominal Exam GI & Abdominal Exam: Soft. absent: Tenderness Assessment and Plan - Assessment and Plan (Free Text) Plan: Assessment Pilonidal abscess and sacral decubitus infection / osteomyelitis as well as left heel ulcer infection S/P sacral debridement POD #4 history of epidural abscess secondary to Strep pneumoniae with associated cord compression and lower extremity paralysis and neurogenic bladder S/P neurosurgery for abscess drainage and laminectomy history of partial small bowel obstruction significant smoking history alcohol abuse obesity with BMI 40 Plan continue Vancomycin and Merrem ; wound cx only growing Corynebacterium but is more likely superficial swab - aim for 4-6 weeks of antibiotics with weekly ESR , CRP, CBC, CMP while on antibiotics; follow up Vanco trough today follow up OR pathology taken 4 days ago will continue to monitor clinically
[2017-02-06] MEDS ORDERED: Rocuronium 10 mg/ml (5 ml) ONE (17:47)
[2017-02-06] MEDS ORDERED: Lidocaine 1% Inj (20ml) ONE (17:47)
[2017-02-06] MEDS ORDERED: Propofol 10 mg/ml Inj (20 ML) ONE (17:47)
[2017-02-06] MEDS ORDERED: Liquid Adhesive TOP ONE (19:51)
[2017-02-06] MEDS ORDERED: HYDROmorphone 0.5 mg/0.5 ml ISec ONE ×2 (20:08→20:36)
[2017-02-06] MEDS: HYDROmorphone 0.5 mg/0.5 ml ISec IVP PRN ×2 (20:08→20:35)
[2017-02-06] MEDS ORDERED: HYDROmorphone 1 mg/ml ISec IVP PRN (20:15)
--- NOTE | 2017-02-06 20:20 | PCM.SURG1 ---
Surgeon's Initial Post Op Note - Surgeon's Notes Surgeon: Dr. Askew Air Bag Stripper: Dr. Shah PGY-2, Dr. Vazquez PGY3 Type of Anesthesia: General Endo Pre-Operative Diagnosis: Paraplegia, Sacral ulcer, Fecal Incontinence Operative Findings: See operative report Post-Operative Diagnosis: Paraplegia, Sacral ulcer, Fecal Incontinence Operation Performed: Transverse End Colostomy Specimen/Specimens Removed: None Estimated Blood Loss: EBL {In ML}: 20 Blood Products Given: N/A Drains Used: No Drains Post-Op Condition: Good Date of Surgery/Procedure: 02/06/17 Time of Surgery/Procedure: 20:20
[2017-02-07] MEDS: Meropenem 1 GM in Dextrose 5% In Water 100 ML IVPB SCH ×4 (00:07→21:32)
[2017-02-07] MEDS: Enoxaparin 100 mg Syringe SC SCH ×3 (00:08→23:47)
[2017-02-07] MEDS: HYDROmorphone 0.5 mg/0.5 ml ISec IVP PRN ×6 (04:13→21:27)
[2017-02-07] MEDS: Lactated Ringer's 1,000 ML IV SCH ×3 (05:10→23:03)
[2017-02-07 06:33] LABS: ALB/GLOB RATIO 0.9 (1.1-1.8); ALKALINE PHOSPHATASE 69 U/L (38-126); ALT/SGPT 33 U/L (7-56); AST/SGOT 28 U/L (17-59); BILIRUBIN,TOTAL 0.4 mg/dL (0.2-1.3); BLOOD UREA NITROGEN 13 mg/dL (7-21); CALCIUM 9.3 mg/dL (8.4-10.5); CARBON DIOXIDE 31 mmol/L (21-33); CHLORIDE 103 mmol/L (98-107); GFR AFRICAN-AMERICAN > 60; GLUCOSE,RANDOM 113 mg/dL (70-110); SODIUM 141 mmol/L (132-148); TOTAL PROTEIN 7.3 g/dL (5.8-8.3)
[2017-02-07 06:40] LABS: BASO # 0.02 K/mm3 (0.0-2.0); BASO % 0.2 % (0.0-3.0); EOS % 0.2 % (1.5-5.0); GRAN # 6.83 (1.4-6.5); GRAN % 75.3 % (50.0-68.0); HEMATOCRIT 31.9 % (42.0-52.0); LYMPH # 1.4 (1.2-3.4); LYMPH % 15.4 % (22.0-35.0); MEAN CELL VOLUME 83.7 fl (80.0-105.0); MEAN CORPUSCULAR HEMOGLOBIN 26.2 pg (25.0-35.0); MEAN CORPUSCULAR HGB CONC 31.3 g/dl (31.0-37.0); MEAN PLATELET VOLUME 11.1 fl (7.0-11.0); MONO # 0.8 (0.1-0.6); MONO % 8.9 % (1.0-6.0); RED CELL DISTRIBUTION WIDTH 15.4 % (11.5-14.5); WHITE BLOOD COUNT 9.1 10^3/ul (4.5-11.0)
[2017-02-07] MEDS: Vancomycin 1gm in NS 250ml 1 GM/250 ML BAG IVPB SCH ×2 (07:10→17:52)
--- NOTE | 2017-02-07 08:16 | CP.PCM.PN ---
Subjective - Date & Time of Evaluation Date of Evaluation: 02/07/17 Time of Evaluation: 07:30 - Subjective Subjective: General surgery progress note for Dr. Melonie Benitez, PGY-1 Pt S & E at bedside. Pt reports pain well controlled overnight, no current complaints. Denies N & V , F & C, SOB or chest pain, other complaints. Sacral dressing changed- well tolerated. Objective - Vital Signs/Intake and Output Vital Signs (last 24 hours): Temp Pulse Resp BP Pulse Ox 98.1 F 69 12 104/56 L 97 02/06/17 21:03 02/06/17 21:03 02/06/17 21:03 02/06/17 21:03 02/06/17 21:03 Intake and Output: 02/07/17 02/07/17 06:59 18:59 Intake Total 600 Output Total 125 Balance 475 - Medications Medications: Current Medications Ascorbic Acid (Vitamin C 500 Mg Tab) 500 mg PO DAILY [facility] Last Admin: 02/06/17 09:44 Dose: 500 mg Baclofen (Lioresal) 20 mg PO TID [facility] Last Admin: 02/06/17 19:43 Dose: Not Given Enoxaparin Sodium (Lovenox) 100 mg SC 0000,1200 [facility] PRN Reason: Protocol Last Admin: 02/07/17 00:08 Dose: 100 mg Gabapentin (Neurontin) 300 mg PO TID [facility] PRN Reason: Protocol Last Admin: 02/06/17 19:43 Dose: Not Given Hydromorphone HCl (Dilaudid) 0.5 mg IVP Q3H PRN PRN Reason: Pain, moderate (4-7) Last Admin: 02/07/17 07:12 Dose: 0.5 mg Vancomycin HCl (Vancomycin 1gm) 1 gm in 250 mls @ 167 mls/hr IVPB Q12H [facility] PRN Reason: Protocol Last Admin: 02/07/17 07:10 Dose: 167 mls/hr Meropenem 1 gm/ Dextrose 100 mls @ 100 mls/hr IVPB Q8 [facility] PRN Reason: Protocol Stop: 02/11/17 14:01 Last Admin: 02/07/17 06:18 Dose: 100 mls/hr Lactated Ringer's (Lactated Ringer's) 1,000 mls @ 100 mls/hr IV .Q10H [facility] Last Admin: 02/07/17 05:10 Dose: Not Given Mupirocin (Bactroban Ointment) 0 gm TOP BID [facility] Last Admin: 02/05/17 18:15 Dose: Not Given Pantoprazole Sodium (Protonix Ec Tab) 40 mg PO ACB [facility] Last Admin: 02/06/17 09:04 Dose: Not Given Zinc Sulfate (Zinc Sulfate 220 Mg Cap) 220 mg PO DAILY [facility] Last Admin: 02/06/17 09:44 Dose: 220 mg - Labs Labs: 02/07/17 06:00 02/07/17 06:00 PT 13.8 SECONDS (9.4-12.5) H 02/06/17 07:00 INR 1.25 (0.93-1.08) H 02/06/17 07:00 APTT 31.6 Seconds (25.1-36.5) 02/06/17 07:00 - Constitutional Appears: Non-toxic, No Acute Distress - Head Exam Head Exam: ATRAUMATIC, NORMAL INSPECTION, NORMOCEPHALIC - Eye Exam Eye Exam: EOMI, Normal appearance - ENT Exam ENT Exam: Mucous Membranes Moist, Normal Exam - Neck Exam Neck Exam: Full ROM, Normal Inspection - Respiratory Exam Respiratory Exam: Clear to Ausculation Bilateral, NORMAL BREATHING PATTERN - Cardiovascular Exam Cardiovascular Exam: REGULAR RHYTHM, +S1, +S2 - GI/Abdominal Exam GI & Abdominal Exam: Soft, Tenderness (slight, around ostomy). absent: Distended, Firm Additional comments: Ostomy over right abdominal wall, scant brown liquid output to ostomy bag, minimal gas in bag, stoma pink/non bloody, patent to palpation - Extremities Exam Extremities Exam: absent: Full ROM (paraplegia) Additional comments: Left foot with dressing in place- no strike through noted - Back Exam Back Exam: NORMAL INSPECTION - Neurological Exam Neurological Exam: Alert, Awake, CN II-XII Intact. absent: Normal Gait ( paraplegic) - Psychiatric Exam Psychiatric exam: Normal Affect, Normal Mood - Skin Skin Exam: Dry, Normal Color, Warm Additional comments: Sacral incisions with [address] [place] drains in place, non tender, no erythema, dressing with saturating seropurulent strike trough. Assessment and Plan - Assessment and Plan (Free Text) Assessment: 51M POD#1 s/p transverse end colostomy & POD#4 s/p debridement of sacral abscess w/sacral biopsy, pt doing well overnight Plan: Cont ABx Cont pain meds Diet advanced to soft Daily sacral dressing changes Monitor ostomy output PT DW attending Eli, PGY-3
[2017-02-07] MEDS: Pantoprazole 40 mg EC Tab PO SCH (09:23)
--- NOTE | 2017-02-07 09:46 | CP.PCM.PN ---
Subjective - Date & Time of Evaluation Date of Evaluation: 02/07/17 Time of Evaluation: 09:45 - Subjective Subjective: 51 y/o male seen at bedside this morning with attending Dr. Mojica for left heel ulcerations secondary to pressure and bed bound status. Pt is experiencing mild pain today after his stoma surgery yesterday. Pt denies any pain in the feet. Pt denies any acute events overnight. Pt denies F/C/N/V/CP/SOB. Multipodus boots are not on at time of visit. Objective - Vital Signs/Intake and Output Vital Signs (last 24 hours): Temp Pulse Resp BP Pulse Ox 98.1 F 69 12 104/56 L 97 02/06/17 21:03 02/06/17 21:03 02/06/17 21:03 02/06/17 21:03 02/06/17 21:03 Intake and Output: 02/07/17 02/07/17 06:59 18:59 Intake Total 600 Output Total 125 Balance 475 - Medications Medications: Current Medications Ascorbic Acid (Vitamin C 500 Mg Tab) 500 mg PO DAILY [facility] Last Admin: 02/07/17 09:21 Dose: 500 mg Baclofen (Lioresal) 20 mg PO TID [facility] Last Admin: 02/07/17 09:21 Dose: 20 mg Enoxaparin Sodium (Lovenox) 100 mg SC 0000,1200 [facility] PRN Reason: Protocol Last Admin: 02/07/17 00:08 Dose: 100 mg Gabapentin (Neurontin) 300 mg PO TID [facility] PRN Reason: Protocol Last Admin: 02/07/17 09:21 Dose: 300 mg Hydromorphone HCl (Dilaudid) 0.5 mg IVP Q3H PRN PRN Reason: Pain, moderate (4-7) Last Admin: 02/07/17 07:12 Dose: 0.5 mg Vancomycin HCl (Vancomycin 1gm) 1 gm in 250 mls @ 167 mls/hr IVPB Q12H [facility] PRN Reason: Protocol Last Admin: 02/07/17 07:10 Dose: 167 mls/hr Meropenem 1 gm/ Dextrose 100 mls @ 100 mls/hr IVPB Q8 [facility] PRN Reason: Protocol Stop: 02/11/17 14:01 Last Admin: 02/07/17 06:18 Dose: 100 mls/hr Lactated Ringer's (Lactated Ringer's) 1,000 mls @ 100 mls/hr IV .Q10H [facility] Last Admin: 02/07/17 05:10 Dose: Not Given Mupirocin (Bactroban Ointment) 0 gm TOP BID [facility] Last Admin: 02/07/17 09:15 Dose: 1 applic Pantoprazole Sodium (Protonix Ec Tab) 40 mg PO ACB [facility] Last Admin: 02/07/17 09:23 Dose: 40 mg Zinc Sulfate (Zinc Sulfate 220 Mg Cap) 220 mg PO DAILY [facility] Last Admin: 02/07/17 09:21 Dose: 220 mg - Labs Labs: 02/07/17 06:00 02/07/17 06:00 PT 13.8 SECONDS (9.4-12.5) H 02/06/17 07:00 INR 1.25 (0.93-1.08) H 02/06/17 07:00 APTT 31.6 Seconds (25.1-36.5) 02/06/17 07:00 - Constitutional Appears: Well, Non-toxic, No Acute Distress - Extremities Exam Additional comments: LE focused examination: Serosanguinous strikethrough noted to inner aspect of L heel dressing. Vasc: DP/PT pulses palpable 2/4 B/L. Temperature gradient warm to warm B/L. CFT < 3 sec to all digits. Minimal non-pitting edema localized to L heel. Neuro: Protective sensation grossly diminished B/L Derm: L posteromedial heel exhibits circular 2.5cm diameter ulceration with 90% granular and 10% fibrotic base. Jose Manuel-wound skin exhibits increased strength and is decreasing in bogginess. Minimal fibrotic slough lies around periphery of wound near margins. Minimal sanguinous drainage noted on dressing with no active drainage on exam. . (+)Probe to bone on initial admission, now negative with tissue filling wound bed that is mixed fibrotic and granular in nature. Erythema noted to jose manuel-wound previously is resolving at this time. Additional 1.5cm x 0.8cm x 0.1cm superficial ulceration noted to posterior heel with 90% granular and 10% fibrotic base at this time, no malodor, no fluctuance, no bogginess, no undermining, and negative probe to bone. Ortho: Involuntary muscle spasms noted to B/L LE, L>R. No tenderness to palpation of L heel at site of pressure ulcerations. Mild tenderness upon elevation of L leg. - Neurological Exam Neurological Exam: Alert, Awake, Oriented x3 - Psychiatric Exam Psychiatric exam: Normal Affect, Normal Mood Assessment and Plan - Assessment and Plan (Free Text) Assessment: 51 y/o paraplegic male with left heel pressure ulceration that previously probed to bone, now healing. Pt also has additional posterior heel superficial ulceration secondary to pressure Plan: Patient seen and evaluated at bedside with attending Dr. Mojica Chart, labs and vitals reviewed: afebrile WBC 9.1 X-rays of L heel are negative for erosive cortical changes, no fractures or dislocations MRI reveals no erosive cortical changes, no marrow edema, no signs of osteomyelitis Left heel wound culture final report = Corynebacterium species Per ID: pt to continue Vancomycin and Merrem; wound cx only growing Corynebacterium but is more likely superficial swab - aim for 4-6 weeks of antibiotics PICC line in place to R arm, continue shelter abx for osteomyelitis Wounds cleansed with saline L heel wounds dressed with Bactroban, Optifoam, ABD and DSD Multipodus boots applied to B/L lower extremities- please keep on at all times Upon D/C, pt to follow up in wound care center Podiatry will continue to follow patient while in house
[2017-02-07 10:51] LABS: INR 1.28 (0.93-1.08); PARTIAL THROMBOPLASTIN TIME 33.7 Seconds (25.1-36.5)
--- NOTE | 2017-02-07 14:21 | CP.PCM.PN ---
<Edward Lyle - Last Filed: 02/07/17 14:17> Subjective - Date & Time of Evaluation Date of Evaluation: 02/07/17 Time of Evaluation: 07:10 - Subjective Subjective: IM Progress Note for Hospitalist Service Patient seen and examined at bedside. POD #1 for colostomy. No acute complaints at time of exam, pain is well controlled on current regimen. Patient initially had no flatus or discharge into colostomy bag on exam, despite eating soft food meal, but on re-examination, had small liquid discharge around the edge of his stoma and had passed flatus into the bag. Denies nausea, emesis, chest pain, shortness of breath, new pains or paresthesias, room spinning, or syncope/near-syncope. Objective - Vital Signs/Intake and Output Vital Signs (last 24 hours): Temp Pulse Resp BP Pulse Ox 98.9 F 60 14 123/72 97 02/07/17 12:08 02/07/17 12:08 02/07/17 12:08 02/07/17 12:08 02/06/17 21:03 Intake and Output: 02/07/17 02/07/17 06:59 18:59 Intake Total 600 Output Total 125 Balance 475 - Medications Medications: Current Medications Ascorbic Acid (Vitamin C 500 Mg Tab) 500 mg PO DAILY [facility] Last Admin: 02/07/17 09:21 Dose: 500 mg Baclofen (Lioresal) 20 mg PO TID [facility] Last Admin: 02/07/17 13:44 Dose: 20 mg Enoxaparin Sodium (Lovenox) 100 mg SC 0000,1200 [facility] PRN Reason: Protocol Last Admin: 02/07/17 13:44 Dose: 100 mg Gabapentin (Neurontin) 300 mg PO TID [facility] PRN Reason: Protocol Last Admin: 02/07/17 13:45 Dose: 300 mg Hydromorphone HCl (Dilaudid) 0.5 mg IVP Q3H PRN PRN Reason: Pain, moderate (4-7) Last Admin: 02/07/17 13:43 Dose: 0.5 mg Vancomycin HCl (Vancomycin 1gm) 1 gm in 250 mls @ 167 mls/hr IVPB Q12H [facility] PRN Reason: Protocol Last Admin: 02/07/17 07:10 Dose: 167 mls/hr Meropenem 1 gm/ Dextrose 100 mls @ 100 mls/hr IVPB Q8 [facility] PRN Reason: Protocol Stop: 02/11/17 14:01 Last Admin: 02/07/17 13:44 Dose: 100 mls/hr Lactated Ringer's (Lactated Ringer's) 1,000 mls @ 100 mls/hr IV .Q10H [facility] Last Admin: 02/07/17 11:30 Dose: 100 mls/hr Mupirocin (Bactroban Ointment) 0 gm TOP BID [facility] Last Admin: 02/07/17 09:15 Dose: 1 applic Pantoprazole Sodium (Protonix Ec Tab) 40 mg PO ACB [facility] Last Admin: 02/07/17 09:23 Dose: 40 mg Zinc Sulfate (Zinc Sulfate 220 Mg Cap) 220 mg PO DAILY [facility] Last Admin: 02/07/17 09:21 Dose: 220 mg - Labs Labs: 02/07/17 06:00 02/07/17 06:00 PT 14.2 SECONDS (9.4-12.5) H 02/07/17 10:30 INR 1.28 (0.93-1.08) H 02/07/17 10:30 APTT 33.7 Seconds (25.1-36.5) 02/07/17 10:30 - Additional Findings Additional findings: - Constitutional Appears: Well, Non-toxic, No Acute Distress - Head Exam Head Exam: ATRAUMATIC, NORMAL INSPECTION, NORMOCEPHALIC - Eye Exam Eye Exam: EOMI, Normal appearance. Absent: Scleral icterus, conjunctival injection Pupil Exam: NORMAL ACCOMODATION - ENT Exam ENT Exam: Mucous Membranes Moist, Normal Exam - Neck Exam Neck Exam: Normal Inspection - Respiratory Exam Respiratory Exam: Clear to Ausculation Bilateral, NORMAL BREATHING PATTERN. absent: Rales, Rhonchi, Wheezes, Respiratory Distress - Cardiovascular Exam Cardiovascular Exam: RRR, +S1, +S2. absent: Murmur - GI/Abdominal Exam GI & Abdominal Exam: Soft, Normal Bowel Sounds, Right sided ostomy in place with patent/pinkish stoma. absent: Distended, Tenderness - Extremities Exam Extremities Exam: absent: Full ROM (paralyzed LE; occasional spasms present), Pedal Edema, Tenderness occasional spasms of LE (R>L) RUE PICC line in place bilateral lower extremity weight-offloading boots in place - Neurological Exam Neurological Exam: Alert, Awake, Oriented x3 - Psychiatric Exam Psychiatric exam: Normal Affect, Normal Mood - Skin Skin Exam: Normal Color, Warm Assessment and Plan - Assessment and Plan (Free Text) Assessment: 51 y/o paraplegic M with past medical history of spinal abscess, laminectomy, abd DVT presented to [facility] for wound care due to possible heel infection of the left foot. Patient admitted for evaluation treatment of clinical osteomyelitis of L heel ulcer being followed by Podiatry and sacral decubitus ulcer s/p surgical debridement POD #4, s/p Colostomy POD #1. Plan: 1) Left heel Ulcer- Clinical Osteomyelitis - Blood cultures show no growth after 5 days, foot culture positive for corynebacterium - Continue multipodus boots to bilateral lower extremity - Patient afebrile, no leukocytosis - L foot wound cx growing corynebacterium - Xray of the left foot: no focal lesion, degenerative changes of tibiotalar and subtalar joints. Corticol sclerosis and osteophytes - MRI of left ankle: no evidence of osteomyelitis radiologically - probe to bone meaning clinical osteomyelitis - PICC line RUE for long-term abx treatment - ID consulted, recs appreciated; continue Merrem and Vanc for 4-6 weeks, f/u OR pathology, Corynebacterium from culture likely superficial swab - Podiatry consulted, recs appreciated; continue multipodus boots, abx as per ID , follow up at wound care center on discharge 2) Sacral Decubitus Ulcer - POD #4 for surgical debridement of ulcer - surgical pathology report showed fragments of acutely inflamed, necrotic fibroconnective tissue and bone w/ acute osteomyelitis - cont vitamin C and zinc to promote wound healing - sacral wound cx growing corynebacterium - stool c diff negative for Ag and Toxin - Abd/Pelvic CT showing 5 x 4.3 cm pilonidal abscess with associated destructive changes involving the distal sacrum and portion of the coccyx, consistent with acute osteomyelitis. No rectocutaneous fistula seen. - surgery consulted, recs appreciated 3) Paraplegia- chronic - POD #1 colostomy due to fecally incontinence - diet advanced as tolerated, currently on soft foods, now passing flatus and scant discharge into colostomy bag - continue home Baclofen - PT evaluation, rec [facility] and continued rehab - continue home neurontin - using a haque for incontinence - GI consulted, recs appreciated - air mattress machine 4) History of DVT s/p IVC filter - cont Lovenox - INR therapeutic Dispo: Telemetry, POD #4 for surgical ulcer debridement and POD #1 for colostomy , pending advancement of diet and improved ostomy output FEN: Soft food diet Access: Peripheral IV, RUE PICC, R-sided colostomy Consults: GI, Surgery, ID, Podiatry Ppx: Protonix for GI, Therapeutic Lovenox covers for DVT Patient was seen, examined and discussed with attending, Dr. Marc <Tutu Marc - Last Filed: 02/08/17 11:12> Objective - Vital Signs/Intake and Output Vital Signs (last 24 hours): Temp Pulse Resp BP Pulse Ox 97.9 F 56 L 20 108/72 98 02/08/17 05:42 02/08/17 05:42 02/08/17 05:42 02/08/17 05:42 02/08/17 05:42 Intake and Output: 02/08/17 02/08/17 06:59 18:59 Intake Total 1350 Balance 1350 - Medications Medications: Current Medications Ascorbic Acid (Vitamin C 500 Mg Tab) 500 mg PO DAILY [facility] Last Admin: 02/08/17 10:04 Dose: 500 mg Baclofen (Lioresal) 20 mg PO TID [facility] Last Admin: 02/08/17 10:04 Dose: 20 mg Enoxaparin Sodium (Lovenox) 100 mg SC 0000,1200 [facility] PRN Reason: Protocol Last Admin: 02/07/17 23:47 Dose: 100 mg Gabapentin (Neurontin) 300 mg PO TID [facility] PRN Reason: Protocol Last Admin: 02/08/17 10:04 Dose: 300 mg Hydromorphone HCl (Dilaudid) 0.5 mg IVP Q3H PRN PRN Reason: Pain, moderate (4-7) Last Admin: 02/08/17 10:37 Dose: 0.5 mg Vancomycin HCl (Vancomycin 1gm) 1 gm in 250 mls @ 167 mls/hr IVPB Q12H [facility] PRN Reason: Protocol Last Admin: 02/08/17 05:14 Dose: 167 mls/hr Meropenem 1 gm/ Dextrose 100 mls @ 100 mls/hr IVPB Q8 [facility] PRN Reason: Protocol Stop: 02/11/17 14:01 Last Admin: 02/08/17 06:07 Dose: 100 mls/hr Mupirocin (Bactroban Ointment) 0 gm TOP BID [facility] Last Admin: 02/08/17 10:04 Dose: Not Given Pantoprazole Sodium (Protonix Ec Tab) 40 mg PO ACB [facility] Last Admin: 02/08/17 08:57 Dose: 40 mg Zinc Sulfate (Zinc Sulfate 220 Mg Cap) 220 mg PO DAILY [facility] Last Admin: 02/08/17 10:05 Dose: 220 mg - Labs Labs: 02/08/17 06:15 02/08/17 06:15 PT 14.2 SECONDS (9.4-12.5) H 02/08/17 06:15 INR 1.28 (0.93-1.08) H 02/08/17 06:15 APTT 35.7 Seconds (25.1-36.5) 02/08/17 06:15 Attending/Attestation - Attestation I have personally seen and examined this patient.: Yes I have fully participated in the care of the patient.: Yes I have reviewed all pertinent clinical information, including history, physical exam and plan: Yes Notes (Text): I have seen and examined the patient with the resident. Agree with the above note with the following additions/ exceptions: Briefly this is 51 year old bedridden male with history of spinal abscess, laminectomy, paraplegia, DVT who is admitted with Left heel osteomyelitis clinically and sacral decubitus / osteomyelitis on vancomycin and meropenem. Patient needs 4-6 weeks of IV antibiotics. Picc line already in place. CT abdomen and pelvis showed sacral osteomyelitis. Patient underwent sacral debridement and colonoscopy which did not reveal any abnormalities. He also had colostomy yesterday. He had small liquid discharge around the edge of his stoma and had passed flatus into the bag. Denies any complaints. Continue Mvi, zinc and vitamin C. PT recommended [facility]. Upon discharge the patient will follow-up with PMD . Dr Tutu Marc
--- NOTE | 2017-02-07 14:55 | OP ---
PROCEDURE DATE: PREOPERATIVE DIAGNOSIS: Paraplegia with a perirectal abscess. POSTOPERATIVE DIAGNOSIS: Paraplegia with a perirectal abscess. OPERATION PERFORMED: Laparotomy and colostomy. SURGEON: Trever Askew MD SHORTHAND REPORTER: Dr. George Dr. . DESCRIPTION OF PROCEDURE: In the operating room, the patient was identified by name, name of the procedure, laterality and his my rama, they consent his wrist band and number. After the successful time-out with perioperative antibiotics, after midline incision was made through the skin and subcutaneous tissues in the previously selected spot for convincing for the patient to change his ostomy. This is about midway between the umbilicus and xiphoid. Previously, we had checked the CAT scan for appropriate position. The abdomen was entered, the omentum was pulled up into the wound followed by transverse colon. At the point of election, the colon was from the omentum. The distal part of the colon was divided with ANIL. The proximal part of the colon was then cleaned, mobilized, and brought up through the midline of the incision. The mesentery was lysed somewhat with Angelica and ties, but hemostasis was excellent. The lower part of the incision was then closed under direct vision with #1 PDS that was brought up to close the incision. The approximation was made with a mattress stitch of #1 Novafil, this is done with a mattress. It was pulled for tension to get the appropriate size at the lateral finger. This having been done, the lower part of the incision was closed with Vicryl followed by subcuticular PDS and Dermabond. The ostomy was then secured to the fascia with several stitches of Vicryl, followed by dividing the end of the colon with scissor. It was then folded back in a Idalia-type ostomy using 3-0 Vicryl. At the end of this beautiful functioning, bag was placed. The patient was taken back to recovery room in good condition after the sponge and needle counts were declared correct. Trever Askew MD
--- NOTE | 2017-02-07 18:21 | CP.PCM.PN ---
Subjective - Date & Time of Evaluation Date of Evaluation: 02/07/17 Time of Evaluation: 08:20 - Subjective Subjective: Had colostomy done yesterday, no fevers overnight, no abdominal pain, no diarrhea. Objective - Vital Signs/Intake and Output Vital Signs (last 24 hours): Temp Pulse Resp BP Pulse Ox 98.1 F 69 12 104/56 L 97 02/06/17 21:03 02/06/17 21:03 02/06/17 21:03 02/06/17 21:03 02/06/17 21:03 Intake and Output: 02/06/17 02/07/17 18:59 06:59 Intake Total 0 Output Total 2275 125 Balance -2275 -125 - Medications Medications: Current Medications Ascorbic Acid (Vitamin C 500 Mg Tab) 500 mg PO DAILY [facility] Last Admin: 02/06/17 09:44 Dose: 500 mg Baclofen (Lioresal) 20 mg PO TID [facility] Last Admin: 02/06/17 19:43 Dose: Not Given Enoxaparin Sodium (Lovenox) 100 mg SC 0000,1200 [facility] PRN Reason: Protocol Last Admin: 02/07/17 00:08 Dose: 100 mg Gabapentin (Neurontin) 300 mg PO TID [facility] PRN Reason: Protocol Last Admin: 02/06/17 19:43 Dose: Not Given Hydromorphone HCl (Dilaudid) 0.5 mg IVP Q3H PRN PRN Reason: Pain, moderate (4-7) Last Admin: 02/07/17 04:13 Dose: 0.5 mg Vancomycin HCl (Vancomycin 1gm) 1 gm in 250 mls @ 167 mls/hr IVPB Q12H [facility] PRN Reason: Protocol Last Admin: 02/06/17 22:26 Dose: 167 mls/hr Meropenem 1 gm/ Dextrose 100 mls @ 100 mls/hr IVPB Q8 [facility] PRN Reason: Protocol Stop: 02/11/17 14:01 Last Admin: 02/07/17 00:07 Dose: 100 mls/hr Lactated Ringer's (Lactated Ringer's) 1,000 mls @ 100 mls/hr IV .Q10H [facility] Last Admin: 02/07/17 05:10 Dose: Not Given Mupirocin (Bactroban Ointment) 0 gm TOP BID [facility] Last Admin: 02/05/17 18:15 Dose: Not Given Pantoprazole Sodium (Protonix Ec Tab) 40 mg PO ACB [facility] Last Admin: 02/06/17 09:04 Dose: Not Given Zinc Sulfate (Zinc Sulfate 220 Mg Cap) 220 mg PO DAILY [facility] Last Admin: 02/06/17 09:44 Dose: 220 mg - Labs Labs: 02/06/17 07:00 02/06/17 07:00 PT 13.8 SECONDS (9.4-12.5) H 02/06/17 07:00 INR 1.25 (0.93-1.08) H 02/06/17 07:00 APTT 31.6 Seconds (25.1-36.5) 02/06/17 07:00 - Constitutional Appears: Non-toxic - Head Exam Head Exam: NORMAL INSPECTION - ENT Exam ENT Exam: Mucous Membranes Moist - Neck Exam Neck Exam: absent: Lymphadenopathy, Meningismus - Respiratory Exam Respiratory Exam: Decreased Breath Sounds - Cardiovascular Exam Cardiovascular Exam: +S1, +S2 - GI/Abdominal Exam GI & Abdominal Exam: Soft. absent: Tenderness Additional comments: colostomy in place Assessment and Plan - Assessment and Plan (Free Text) Plan: Assessment Pilonidal abscess and sacral decubitus infection / osteomyelitis as well as left heel ulcer infection S/P sacral debridement POD #5, S/P colostomy POD #1 history of epidural abscess secondary to Strep pneumoniae with associated cord compression and lower extremity paralysis and neurogenic bladder S/P neurosurgery for abscess drainage and laminectomy history of partial small bowel obstruction significant smoking history alcohol abuse obesity with BMI 40 Plan continue Vancomycin and Merrem ; wound cx only growing Corynebacterium but is more likely superficial swab - aim for 4-6 weeks of antibiotics with weekly ESR , CRP, CBC, CMP while on antibiotics; follow up Vanco trough tomorrow morning follow up OR pathology taken 5 days ago will continue to monitor clinically
[2017-02-08 00:08] VITALS: RESP 20; O2SAT 98
[2017-02-08] MEDS: HYDROmorphone 0.5 mg/0.5 ml ISec IVP PRN ×8 (00:20→23:39)
[2017-02-08] MEDS: Vancomycin 1gm in NS 250ml 1 GM/250 ML BAG IVPB SCH ×3 (05:14→18:54)
[2017-02-08] MEDS: Meropenem 1 GM in Dextrose 5% In Water 100 ML IVPB SCH ×3 (06:07→21:35)
[2017-02-08 06:46] LABS: ALB/GLOB RATIO 0.8 (1.1-1.8); ALKALINE PHOSPHATASE 58 U/L (38-126); ALT/SGPT 33 U/L (7-56); AST/SGOT 18 U/L (17-59); BILIRUBIN,TOTAL 0.4 mg/dL (0.2-1.3); BLOOD UREA NITROGEN 12 mg/dL (7-21); CARBON DIOXIDE 33 mmol/L (21-33); CHLORIDE 105 mmol/L (98-107); GFR AFRICAN-AMERICAN > 60; GLUCOSE,RANDOM 98 mg/dL (70-110); MAGNESIUM 1.6 mg/dL (1.7-2.2); PHOSPHOROUS 3.6 mg/dL (2.5-4.5); POTASSIUM 3.9 mmol/L (3.6-5.0); SODIUM 140 mmol/L (132-148); TOTAL PROTEIN 6.2 g/dL (5.8-8.3)
[2017-02-08 06:48] LABS: INR 1.28 (0.93-1.08); PARTIAL THROMBOPLASTIN TIME 35.7 Seconds (25.1-36.5)
[2017-02-08 06:49] LABS: BASO # 0.03 K/mm3 (0.0-2.0); BASO % 0.6 % (0.0-3.0); EOS # 0.1 (0.0-0.7); EOS % 2.5 % (1.5-5.0); GRAN # 2.35 (1.4-6.5); GRAN % 49.3 % (50.0-68.0); HEMATOCRIT 28.7 % (42.0-52.0); LYMPH # 1.7 (1.2-3.4); LYMPH % 34.8 % (22.0-35.0); MEAN CELL VOLUME 84.9 fl (80.0-105.0); MEAN CORPUSCULAR HEMOGLOBIN 26.3 pg (25.0-35.0); MEAN PLATELET VOLUME 11.2 fl (7.0-11.0); MONO # 0.6 (0.1-0.6); MONO % 12.8 % (1.0-6.0); RED CELL DISTRIBUTION WIDTH 15.4 % (11.5-14.5); WHITE BLOOD COUNT 4.8 10^3/ul (4.5-11.0)
[2017-02-08] MEDS: Pantoprazole 40 mg EC Tab PO SCH (08:57)
--- NOTE | 2017-02-08 10:22 | CP.PCM.PN ---
Subjective - Date & Time of Evaluation Date of Evaluation: 02/08/17 Time of Evaluation: 07:30 - Subjective Subjective: Surgery: Dr. Askew Pt seen and examined. No acute events overnight. States he's feeling well and denies complaints at this time. Tolerating diet and having flatus in ostomy but no stool yet. Denies N/V, F/C. Objective - Vital Signs/Intake and Output Vital Signs (last 24 hours): Temp Pulse Resp BP Pulse Ox 97.9 F 56 L 20 108/72 98 02/08/17 05:42 02/08/17 05:42 02/08/17 05:42 02/08/17 05:42 02/08/17 05:42 Intake and Output: 02/08/17 02/08/17 06:59 18:59 Intake Total 1350 Balance 1350 - Medications Medications: Current Medications Ascorbic Acid (Vitamin C 500 Mg Tab) 500 mg PO DAILY [facility] Last Admin: 02/08/17 10:04 Dose: 500 mg Baclofen (Lioresal) 20 mg PO TID [facility] Last Admin: 02/08/17 10:04 Dose: 20 mg Enoxaparin Sodium (Lovenox) 100 mg SC 0000,1200 [facility] PRN Reason: Protocol Last Admin: 02/07/17 23:47 Dose: 100 mg Gabapentin (Neurontin) 300 mg PO TID [facility] PRN Reason: Protocol Last Admin: 02/08/17 10:04 Dose: 300 mg Hydromorphone HCl (Dilaudid) 0.5 mg IVP Q3H PRN PRN Reason: Pain, moderate (4-7) Last Admin: 02/08/17 06:40 Dose: 0.5 mg Vancomycin HCl (Vancomycin 1gm) 1 gm in 250 mls @ 167 mls/hr IVPB Q12H [facility] PRN Reason: Protocol Last Admin: 02/08/17 05:14 Dose: 167 mls/hr Meropenem 1 gm/ Dextrose 100 mls @ 100 mls/hr IVPB Q8 [facility] PRN Reason: Protocol Stop: 02/11/17 14:01 Last Admin: 02/08/17 06:07 Dose: 100 mls/hr Mupirocin (Bactroban Ointment) 0 gm TOP BID [facility] Last Admin: 02/08/17 10:04 Dose: Not Given Pantoprazole Sodium (Protonix Ec Tab) 40 mg PO ACB [facility] Last Admin: 02/08/17 08:57 Dose: 40 mg Zinc Sulfate (Zinc Sulfate 220 Mg Cap) 220 mg PO DAILY [facility] Last Admin: 02/08/17 10:05 Dose: 220 mg - Labs Labs: 02/08/17 06:15 02/08/17 06:15 PT 14.2 SECONDS (9.4-12.5) H 02/08/17 06:15 INR 1.28 (0.93-1.08) H 02/08/17 06:15 APTT 35.7 Seconds (25.1-36.5) 02/08/17 06:15 - Constitutional Appears: Well, No Acute Distress - Head Exam Head Exam: ATRAUMATIC, NORMOCEPHALIC - ENT Exam ENT Exam: Mucous Membranes Moist - Respiratory Exam Respiratory Exam: NORMAL BREATHING PATTERN - Cardiovascular Exam Cardiovascular Exam: RRR - GI/Abdominal Exam GI & Abdominal Exam: Soft. absent: Distended, Tenderness Additional comments: ostomy in place with liquid output/gas in bag. Verdon, patent. - Back Exam Additional comments: Sacral wound with payton drains in place, no active drainage noted - Neurological Exam Neurological Exam: Alert, Awake, Oriented x3 - Skin Skin Exam: Dry, Warm Assessment and Plan - Assessment and Plan (Free Text) Assessment: 51y/o paraplegic male with chronic non-healing sacral ulcer/osteomyelitis s/p transverse colostomy; POD#2 Plan: - monitor ostomy function - cont IV ABX for sacral osteo as per ID recs - will remove payton drains before DC - d/w Dr. Azar Badillo, PGY-3 Surgery
[2017-02-08] MEDS: Enoxaparin 100 mg Syringe SC SCH ×2 (13:07→23:40)
--- NOTE | 2017-02-08 13:39 | CP.PCM.PN ---
Subjective - Date & Time of Evaluation Date of Evaluation: 02/08/17 Time of Evaluation: 11:30 - Subjective Subjective: Podiatry Progress Note- Dr. Jalloh 51 y/o male seen at bedside this morning regarding left heel pressure ulcerations. Pt denies any overnight events and is in no pain in the heel. Pt states he is feeling better overall today and that the pain at his colostomy surgical site is well managed today with medications. Pt states he will be discharged to [facility] within the next couple of days, and is aware that he should follow up with Dr. Jalloh in the wound care center upon discharge. Pt denies F/ C/N/V/CP/SOB. Objective - Vital Signs/Intake and Output Vital Signs (last 24 hours): Temp Pulse Resp BP Pulse Ox 97.7 F 62 20 114/63 98 02/08/17 11:44 02/08/17 11:44 02/08/17 11:44 02/08/17 11:44 02/08/17 05:42 Intake and Output: 02/08/17 02/08/17 06:59 18:59 Intake Total 1350 Balance 1350 - Medications Medications: Current Medications Ascorbic Acid (Vitamin C 500 Mg Tab) 500 mg PO DAILY [facility] Last Admin: 02/08/17 10:04 Dose: 500 mg Baclofen (Lioresal) 20 mg PO TID [facility] Last Admin: 02/08/17 13:09 Dose: 20 mg Enoxaparin Sodium (Lovenox) 100 mg SC 0000,1200 [facility] PRN Reason: Protocol Last Admin: 02/08/17 13:07 Dose: 100 mg Gabapentin (Neurontin) 300 mg PO TID [facility] PRN Reason: Protocol Last Admin: 02/08/17 13:31 Dose: 300 mg Hydromorphone HCl (Dilaudid) 0.5 mg IVP Q3H PRN PRN Reason: Pain, moderate (4-7) Last Admin: 02/08/17 10:37 Dose: 0.5 mg Vancomycin HCl (Vancomycin 1gm) 1 gm in 250 mls @ 167 mls/hr IVPB Q12H [facility] PRN Reason: Protocol Last Admin: 02/08/17 05:14 Dose: 167 mls/hr Meropenem 1 gm/ Dextrose 100 mls @ 100 mls/hr IVPB Q8 [facility] PRN Reason: Protocol Stop: 02/11/17 14:01 Last Admin: 02/08/17 13:09 Dose: 100 mls/hr Mupirocin (Bactroban Ointment) 0 gm TOP BID [facility] Last Admin: 02/08/17 10:04 Dose: Not Given Pantoprazole Sodium (Protonix Ec Tab) 40 mg PO ACB [facility] Last Admin: 02/08/17 08:57 Dose: 40 mg Zinc Sulfate (Zinc Sulfate 220 Mg Cap) 220 mg PO DAILY [facility] Last Admin: 02/08/17 10:05 Dose: 220 mg - Labs Labs: 02/08/17 06:15 02/08/17 06:15 PT 14.2 SECONDS (9.4-12.5) H 02/08/17 06:15 INR 1.28 (0.93-1.08) H 02/08/17 06:15 APTT 35.7 Seconds (25.1-36.5) 02/08/17 06:15 - Constitutional Appears: Well, Non-toxic, No Acute Distress - Extremities Exam Additional comments: Lower extremity focused examination: Small amount of serosanguinous strikethrough noted to inner aspect of L heel dressing. Vasc: DP/PT pulses palpable 2/4 B/L. Temperature gradient warm to warm B/L. CFT < 3 sec to all digits. Minimal non-pitting edema localized to L heel. Neuro: Protective sensation grossly diminished B/L Derm: L posteromedial heel exhibits 2.0cm x 1.5cm x 0.2cm ulceration with 90% granular and 10% fibrotic base. Jose Manuel-wound skin exhibits increased strength and is decreasing in bogginess. Minimal fibrotic slough lies around periphery of wound near margins. Minimal sanguinous drainage noted on dressing with no active drainage on exam. . (+)Probe to bone on initial admission, now negative with tissue filling wound bed that is mixed fibrotic and granular in nature. Erythema noted to jose manuel-wound previously is resolving at this time. Additional 1.0cm x 0.7cm x 0.1cm superficial ulceration noted to posterior heel with 90% granular and 10% fibrotic base at this time, no malodor, no fluctuance, no bogginess, no undermining, and negative probe to bone. Wound shows positive signs of epithelialization. Ortho: Involuntary muscle spasms noted to B/L LE, L>R. No tenderness to palpation of L heel at site of pressure ulcerations. Mild tenderness upon elevation of L leg. - Neurological Exam Neurological Exam: Alert, Awake, Oriented x3 - Psychiatric Exam Psychiatric exam: Normal Affect, Normal Mood Assessment and Plan - Assessment and Plan (Free Text) Assessment: 51 y/o paraplegic male with left heel pressure ulceration that previously probed to bone, now healing. Pt also has additional posterior heel superficial ulceration secondary to pressure Plan: Patient seen and evaluated at bedside Discussed plan with attending Dr. Jalloh Chart, labs and vitals reviewed: afebrile WBC 4.8 X-rays of L heel are negative for erosive cortical changes, no fractures or dislocations MRI reveals no erosive cortical changes, no marrow edema, no signs of osteomyelitis Left heel wound culture final report = Corynebacterium species Per ID: pt to continue Vancomycin and Merrem, aim for 4-6 weeks of antibiotics total PICC line in place to R arm, continue intermodal customer service abx for osteomyelitis Wounds cleansed with saline L heel wounds dressed with Bactroban, ABD and DSD Multipodus boots applied to B/L lower extremities- please keep on at all times Upon D/C to [facility], pt to follow up in wound care center Podiatry will continue to follow patient while in house
--- NOTE | 2017-02-08 14:03 | CP.PCM.PN ---
Subjective - Date & Time of Evaluation Date of Evaluation: 02/08/17 Time of Evaluation: 10:05 - Subjective Subjective: No fevers, not in distress, afebrile. No abdominal pain, eating well, no nausea , no diarrhea. Objective - Vital Signs/Intake and Output Vital Signs (last 24 hours): Temp Pulse Resp BP Pulse Ox 97.9 F 56 L 20 108/72 98 02/08/17 05:42 02/08/17 05:42 02/08/17 05:42 02/08/17 05:42 02/08/17 05:42 Intake and Output: 02/08/17 02/08/17 06:59 18:59 Intake Total 1350 Balance 1350 - Medications Medications: Current Medications Ascorbic Acid (Vitamin C 500 Mg Tab) 500 mg PO DAILY [facility] Last Admin: 02/07/17 09:21 Dose: 500 mg Baclofen (Lioresal) 20 mg PO TID [facility] Last Admin: 02/07/17 17:46 Dose: 20 mg Enoxaparin Sodium (Lovenox) 100 mg SC 0000,1200 [facility] PRN Reason: Protocol Last Admin: 02/07/17 23:47 Dose: 100 mg Gabapentin (Neurontin) 300 mg PO TID [facility] PRN Reason: Protocol Last Admin: 02/07/17 17:46 Dose: 300 mg Hydromorphone HCl (Dilaudid) 0.5 mg IVP Q3H PRN PRN Reason: Pain, moderate (4-7) Last Admin: 02/08/17 06:40 Dose: 0.5 mg Vancomycin HCl (Vancomycin 1gm) 1 gm in 250 mls @ 167 mls/hr IVPB Q12H [facility] PRN Reason: Protocol Last Admin: 02/08/17 05:14 Dose: 167 mls/hr Meropenem 1 gm/ Dextrose 100 mls @ 100 mls/hr IVPB Q8 [facility] PRN Reason: Protocol Stop: 02/11/17 14:01 Last Admin: 02/08/17 06:07 Dose: 100 mls/hr Lactated Ringer's (Lactated Ringer's) 1,000 mls @ 100 mls/hr IV .Q10H [facility] Last Admin: 02/07/17 23:03 Dose: 100 mls/hr Mupirocin (Bactroban Ointment) 0 gm TOP BID [facility] Last Admin: 02/07/17 17:36 Dose: Not Given Pantoprazole Sodium (Protonix Ec Tab) 40 mg PO ACB [facility] Last Admin: 02/08/17 08:57 Dose: 40 mg Zinc Sulfate (Zinc Sulfate 220 Mg Cap) 220 mg PO DAILY [facility] Last Admin: 02/07/17 09:21 Dose: 220 mg - Labs Labs: 02/08/17 06:15 02/08/17 06:15 PT 14.2 SECONDS (9.4-12.5) H 02/08/17 06:15 INR 1.28 (0.93-1.08) H 02/08/17 06:15 APTT 35.7 Seconds (25.1-36.5) 02/08/17 06:15 - Constitutional Appears: Non-toxic, No Acute Distress - Head Exam Head Exam: NORMAL INSPECTION - ENT Exam ENT Exam: Mucous Membranes Moist - Neck Exam Neck Exam: absent: Meningismus - Respiratory Exam Respiratory Exam: Decreased Breath Sounds - Cardiovascular Exam Cardiovascular Exam: +S1, +S2 - GI/Abdominal Exam GI & Abdominal Exam: Soft. absent: Tenderness Additional comments: colostomy in place Assessment and Plan - Assessment and Plan (Free Text) Plan: Assessment Pilonidal abscess and sacral decubitus infection / osteomyelitis as well as left heel ulcer infection S/P sacral debridement POD #6, S/P colostomy POD #2 history of epidural abscess secondary to Strep pneumoniae with associated cord compression and lower extremity paralysis and neurogenic bladder S/P neurosurgery for abscess drainage and laminectomy history of partial small bowel obstruction significant smoking history alcohol abuse obesity with BMI 40 Plan continue Vancomycin and Merrem ; wound cx only growing Corynebacterium but is more likely superficial swab - aim for 4-6 weeks of antibiotics with weekly ESR , CRP, CBC, CMP while on antibiotics; Vanco trough at 19.3 is within the 15-20 target range - ideally Vanco trough should be measured 2 times a week, at the very least once a week follow up OR pathology taken 6 days ago will continue to monitor clinically
--- NOTE | 2017-02-08 17:50 | CP.PCM.PN ---
Subjective - Date & Time of Evaluation Date of Evaluation: 02/08/17 Time of Evaluation: 07:20 - Subjective Subjective: IM Progress Note for Hospitalist Service Patient seen and examined at bedside. POD #2 for colostomy. No acute complaints at time of exam, pain is well controlled on current regimen. Continues to have flatus and scant fluid discharge into the colostomy bag, no major discharge/bowel movement yet reported. Denies nausea, emesis, chest pain , shortness of breath, new pains or paresthesias, room spinning, or syncope/near -syncope. No reports of feeling distended or overfull. Objective - Vital Signs/Intake and Output Vital Signs (last 24 hours): Temp Pulse Resp BP Pulse Ox 97.7 F 62 20 114/63 98 02/08/17 11:44 02/08/17 14:05 02/08/17 11:44 02/08/17 11:44 02/08/17 05:42 Intake and Output: 02/08/17 02/08/17 06:59 18:59 Intake Total 1350 540 Output Total 750 Balance 1350 -210 - Medications Medications: Current Medications Ascorbic Acid (Vitamin C 500 Mg Tab) 500 mg PO DAILY [facility] Last Admin: 02/08/17 10:04 Dose: 500 mg Baclofen (Lioresal) 20 mg PO TID [facility] Last Admin: 02/08/17 17:25 Dose: 20 mg Enoxaparin Sodium (Lovenox) 100 mg SC 0000,1200 [facility] PRN Reason: Protocol Last Admin: 02/08/17 13:07 Dose: 100 mg Gabapentin (Neurontin) 300 mg PO TID [facility] PRN Reason: Protocol Last Admin: 02/08/17 17:26 Dose: 300 mg Hydromorphone HCl (Dilaudid) 0.5 mg IVP Q3H PRN PRN Reason: Pain, moderate (4-7) Last Admin: 02/08/17 17:26 Dose: 0.5 mg Vancomycin HCl (Vancomycin 1gm) 1 gm in 250 mls @ 167 mls/hr IVPB Q12H [facility] PRN Reason: Protocol Last Admin: 02/08/17 05:14 Dose: 167 mls/hr Meropenem 1 gm/ Dextrose 100 mls @ 100 mls/hr IVPB Q8 [facility] PRN Reason: Protocol Stop: 02/11/17 14:01 Last Admin: 02/08/17 13:09 Dose: 100 mls/hr Mupirocin (Bactroban Ointment) 0 gm TOP BID [facility] Last Admin: 02/08/17 17:22 Dose: Not Given Pantoprazole Sodium (Protonix Ec Tab) 40 mg PO ACB [facility] Last Admin: 02/08/17 08:57 Dose: 40 mg Zinc Sulfate (Zinc Sulfate 220 Mg Cap) 220 mg PO DAILY [facility] Last Admin: 02/08/17 10:05 Dose: 220 mg - Labs Labs: 02/08/17 06:15 02/08/17 06:15 PT 14.2 SECONDS (9.4-12.5) H 02/08/17 06:15 INR 1.28 (0.93-1.08) H 02/08/17 06:15 APTT 35.7 Seconds (25.1-36.5) 02/08/17 06:15 - Additional Findings Additional findings: - Constitutional Appears: Well, Non-toxic, No Acute Distress - Head Exam Head Exam: ATRAUMATIC, NORMAL INSPECTION, NORMOCEPHALIC - Eye Exam Eye Exam: EOMI, Normal appearance. Absent: Scleral icterus, conjunctival injection Pupil Exam: NORMAL ACCOMODATION - ENT Exam ENT Exam: Mucous Membranes Moist, Normal Exam - Neck Exam Neck Exam: Normal Inspection - Respiratory Exam Respiratory Exam: Clear to Ausculation Bilateral, NORMAL BREATHING PATTERN. absent: Rales, Rhonchi, Wheezes, Respiratory Distress - Cardiovascular Exam Cardiovascular Exam: RRR, +S1, +S2. absent: Murmur - GI/Abdominal Exam GI & Abdominal Exam: Soft, Normal Bowel Sounds, Right sided ostomy in place with patent/pinkish stoma, scant discharge and flatus in colostomy bag. absent : Distended, Tenderness - Extremities Exam Extremities Exam: absent: Full ROM (paralyzed LE; occasional spasms present), Pedal Edema, Tenderness occasional spasms of LE (R>L) RUE PICC line in place bilateral lower extremity weight-offloading boots in place - Neurological Exam Neurological Exam: Alert, Awake, Oriented x3 - Psychiatric Exam Psychiatric exam: Normal Affect, Normal Mood - Skin Skin Exam: Normal Color, Warm Assessment and Plan - Assessment and Plan (Free Text) Assessment: 51 y/o paraplegic M with past medical history of spinal abscess, laminectomy, abd DVT presented to [facility] for wound care due to possible heel infection of the left foot. Patient admitted for evaluation treatment of clinical osteomyelitis of L heel ulcer being followed by Podiatry and sacral decubitus ulcer s/p surgical debridement POD #5, s/p Colostomy POD #2. Plan: 1) Left heel Ulcer- Clinical Osteomyelitis - Blood cultures show no growth after 5 days, foot culture positive for corynebacterium - Continue multipodus boots to bilateral lower extremity - Patient afebrile, no leukocytosis - L foot wound cx growing corynebacterium - Xray of the left foot: no focal lesion, degenerative changes of tibiotalar and subtalar joints. Corticol sclerosis and osteophytes - MRI of left ankle: no evidence of osteomyelitis radiologically - probe to bone meaning clinical osteomyelitis - PICC line RUE for long-term abx treatment - ID consulted, recs appreciated; continue Merrem and Vanc for 4-6 weeks, f/u OR pathology, Corynebacterium from culture likely superficial swab, will need weekly labs (ESR, CRP, CBC, CMP) while on antibiotics, goal for Vanc trough is 15-20, continue to check trough 2x per week while on abx - Podiatry consulted, recs appreciated; continue multipodus boots, abx as per ID , follow up at wound care center on discharge 2) Sacral Decubitus Ulcer - POD #5 for surgical debridement of ulcer - surgical pathology report showed fragments of acutely inflamed, necrotic fibroconnective tissue and bone w/ acute osteomyelitis - cont vitamin C and zinc to promote wound healing - sacral wound cx growing corynebacterium - stool c diff negative for Ag and Toxin - Abd/Pelvic CT showing 5 x 4.3 cm pilonidal abscess with associated destructive changes involving the distal sacrum and portion of the coccyx, consistent with acute osteomyelitis. No rectocutaneous fistula seen. - surgery consulted, recs appreciated 3) Paraplegia- chronic - POD #2 colostomy due to fecally incontinence - diet advanced as tolerated, currently on soft foods, still passing flatus and scant discharge into colostomy bag but no full Bowel movement into bag - continue home Baclofen - PT evaluation, rec [facility] and continued rehab - continue home neurontin - using a haque for incontinence - GI consulted, recs appreciated - air mattress machine 4) History of DVT s/p IVC filter - cont Lovenox - INR therapeutic Dispo: Telemetry, POD #5 for surgical ulcer debridement and POD #2 for colostomy , pending discharge to sub-acute rehab possibly tomorrow FEN: Soft food diet Access: Peripheral IV, RUE PICC, R-sided colostomy Consults: GI, Surgery, ID, Podiatry Ppx: Protonix for GI, Therapeutic Lovenox covers for DVT Patient was seen, examined and discussed with attending, Dr. Marc
[2017-02-08] MEDS: Magnesium Sulfate 2 GM in Sodium Chloride 0.9% 100 ML IVPB SCH ×2 (20:35→22:45)
[2017-02-09] MEDS: HYDROmorphone 0.5 mg/0.5 ml ISec IVP PRN ×5 (03:37→17:10)
[2017-02-09] MEDS: Meropenem 1 GM in Dextrose 5% In Water 100 ML IVPB SCH ×2 (05:45→13:54)
[2017-02-09 06:31] LABS: BASO # 0.01 K/mm3 (0.0-2.0); BASO % 0.2 % (0.0-3.0); EOS # 0.1 (0.0-0.7); EOS % 2.5 % (1.5-5.0); GRAN # 2.49 (1.4-6.5); GRAN % 52.5 % (50.0-68.0); HEMATOCRIT 29.4 % (42.0-52.0); LYMPH # 1.7 (1.2-3.4); LYMPH % 34.9 % (22.0-35.0); MEAN CELL VOLUME 84.2 fl (80.0-105.0); MEAN CORPUSCULAR HEMOGLOBIN 26.1 pg (25.0-35.0); MONO # 0.5 (0.1-0.6); MONO % 9.9 % (1.0-6.0); RED CELL DISTRIBUTION WIDTH 15.3 % (11.5-14.5); WHITE BLOOD COUNT 4.8 10^3/ul (4.5-11.0)
[2017-02-09 06:41] LABS: ALB/GLOB RATIO 0.8 (1.1-1.8); ALKALINE PHOSPHATASE 59 U/L (38-126); ALT/SGPT 23 U/L (7-56); AST/SGOT 17 U/L (17-59); BILIRUBIN,TOTAL 0.4 mg/dL (0.2-1.3); BLOOD UREA NITROGEN 9 mg/dL (7-21); CARBON DIOXIDE 32 mmol/L (21-33); CHLORIDE 104 mmol/L (98-107); GFR AFRICAN-AMERICAN > 60; GLUCOSE,RANDOM 97 mg/dL (70-110); MAGNESIUM 2.1 mg/dL (1.7-2.2); PHOSPHOROUS 3.6 mg/dL (2.5-4.5); SODIUM 141 mmol/L (132-148); TOTAL PROTEIN 6.5 g/dL (5.8-8.3)
[2017-02-09 06:42] LABS: INR 1.19 (0.93-1.08); PARTIAL THROMBOPLASTIN TIME 34.9 Seconds (25.1-36.5)
[2017-02-09] MEDS: Vancomycin 1gm in NS 250ml 1 GM/250 ML BAG IVPB SCH ×2 (06:48→17:09)
--- NOTE | 2017-02-09 08:36 | CP.PCM.PN ---
Subjective - Date & Time of Evaluation Date of Evaluation: 02/09/17 Time of Evaluation: 08:32 - Subjective Subjective: PGY1 General Surgery Note for Dr. Askew Patient seen and examined at bedside this morning. No acute events overnight. Patient states he is feeling well and has no complaints at this time. He is tolerating a heart healthy, finely chopped solids and thin liquids dysphagia diet. Patient reports flatus in his ostomy bag but minimal stool output so far. Denies fevers, chills, nausea, vomiting, shortness of breath and/or chest pain. Objective - Vital Signs/Intake and Output Vital Signs (last 24 hours): Temp Pulse Resp BP Pulse Ox 98.0 F 57 L 20 119/56 L 98 02/09/17 06:00 02/09/17 06:00 02/09/17 06:00 02/09/17 06:00 02/09/17 06:00 Intake and Output: 02/09/17 02/09/17 06:59 18:59 Intake Total 570 Output Total 2300 Balance -1730 - Medications Medications: Current Medications Ascorbic Acid (Vitamin C 500 Mg Tab) 500 mg PO DAILY [facility] Last Admin: 02/08/17 10:04 Dose: 500 mg Baclofen (Lioresal) 20 mg PO TID [facility] Last Admin: 02/08/17 17:25 Dose: 20 mg Enoxaparin Sodium (Lovenox) 100 mg SC 0000,1200 [facility] PRN Reason: Protocol Last Admin: 02/08/17 23:40 Dose: 100 mg Gabapentin (Neurontin) 300 mg PO TID [facility] PRN Reason: Protocol Last Admin: 02/08/17 17:26 Dose: 300 mg Hydromorphone HCl (Dilaudid) 0.5 mg IVP Q3H PRN PRN Reason: Pain, moderate (4-7) Last Admin: 02/09/17 06:48 Dose: 0.5 mg Vancomycin HCl (Vancomycin 1gm) 1 gm in 250 mls @ 167 mls/hr IVPB Q12H [facility] PRN Reason: Protocol Last Admin: 02/09/17 06:48 Dose: 167 mls/hr Meropenem 1 gm/ Dextrose 100 mls @ 100 mls/hr IVPB Q8 [facility] PRN Reason: Protocol Stop: 02/11/17 14:01 Last Admin: 02/09/17 05:45 Dose: 100 mls/hr Mupirocin (Bactroban Ointment) 0 gm TOP BID [facility] Last Admin: 02/08/17 17:22 Dose: Not Given Pantoprazole Sodium (Protonix Ec Tab) 40 mg PO ACB [facility] Last Admin: 02/08/17 08:57 Dose: 40 mg Zinc Sulfate (Zinc Sulfate 220 Mg Cap) 220 mg PO DAILY [facility] Last Admin: 02/08/17 10:05 Dose: 220 mg - Labs Labs: 02/09/17 05:40 02/09/17 05:40 PT 13.1 SECONDS (9.4-12.5) H 02/09/17 05:40 INR 1.19 (0.93-1.08) H 02/09/17 05:40 APTT 34.9 Seconds (25.1-36.5) 02/09/17 05:40 - Constitutional Appears: Non-toxic, No Acute Distress - Head Exam Head Exam: ATRAUMATIC, NORMOCEPHALIC - Eye Exam Eye Exam: EOMI, Normal appearance. absent: Scleral icterus - ENT Exam ENT Exam: Mucous Membranes Moist - Respiratory Exam Respiratory Exam: NORMAL BREATHING PATTERN. absent: Accessory Muscle Use, Respiratory Distress - Cardiovascular Exam Cardiovascular Exam: REGULAR RHYTHM - GI/Abdominal Exam GI & Abdominal Exam: Soft. absent: Distended, Firm, Guarding, Rigid, Tenderness Additional comments: ostomy in place with minimal liquid output in bag. [place] and patent. - Extremities Exam Extremities Exam: absent: Calf Tenderness, Pedal Edema Additional comments: pressure ulcer boots in place. - Back Exam Additional comments: Sacral wound with payton drains in place, no active drainage noted - Neurological Exam Neurological Exam: Alert, Awake, Oriented x3 - Psychiatric Exam Psychiatric exam: Normal Affect, Normal Mood - Skin Skin Exam: Dry, Warm Assessment and Plan - Assessment and Plan (Free Text) Assessment: 51y/o paraplegic male with chronic non-healing sacral ulcer/osteomyelitis s/p transverse colostomy; POD#3 Plan: - monitor ostomy function - cont IV ABX for sacral osteo as per ID recs - will remove payton drains before DC Will discuss with Dr. Azar Reed Wali PGY1
[2017-02-09] MEDS: Pantoprazole 40 mg EC Tab PO SCH (09:00)
--- NOTE | 2017-02-09 10:54 | CP.PCM.PN ---
Subjective - Date & Time of Evaluation Date of Evaluation: 02/09/17 Time of Evaluation: 10:52 - Subjective Subjective: 51 y/o male seen at bedside this morning with attending Dr. Jalloh for left heel pressure ulcerations. Pt denies any pain at this time and says he will be discharged later today to sub acute rehab. Pt is hoping he can follow up in the wound care center for his heel ulcer. Pt denies any acute events overnight. Pt denies F/C/N/V/CP/SOB. Objective - Vital Signs/Intake and Output Vital Signs (last 24 hours): Temp Pulse Resp BP Pulse Ox 98.0 F 57 L 20 119/56 L 98 02/09/17 06:00 02/09/17 06:00 02/09/17 06:00 02/09/17 06:00 02/09/17 06:00 Intake and Output: 02/09/17 02/09/17 06:59 18:59 Intake Total 570 Output Total 2300 Balance -1730 - Medications Medications: Current Medications Ascorbic Acid (Vitamin C 500 Mg Tab) 500 mg PO DAILY [facility] Last Admin: 02/09/17 08:59 Dose: 500 mg Baclofen (Lioresal) 20 mg PO TID [facility] Last Admin: 02/09/17 09:00 Dose: 20 mg Enoxaparin Sodium (Lovenox) 100 mg SC 0000,1200 [facility] PRN Reason: Protocol Last Admin: 02/08/17 23:40 Dose: 100 mg Gabapentin (Neurontin) 300 mg PO TID [facility] PRN Reason: Protocol Last Admin: 02/09/17 09:00 Dose: 300 mg Hydromorphone HCl (Dilaudid) 0.5 mg IVP Q3H PRN PRN Reason: Pain, moderate (4-7) Last Admin: 02/09/17 10:10 Dose: 0.5 mg Vancomycin HCl (Vancomycin 1gm) 1 gm in 250 mls @ 167 mls/hr IVPB Q12H [facility] PRN Reason: Protocol Last Admin: 02/09/17 06:48 Dose: 167 mls/hr Meropenem 1 gm/ Dextrose 100 mls @ 100 mls/hr IVPB Q8 [facility] PRN Reason: Protocol Stop: 02/11/17 14:01 Last Admin: 02/09/17 05:45 Dose: 100 mls/hr Mupirocin (Bactroban Ointment) 0 gm TOP BID [facility] Last Admin: 02/09/17 09:27 Dose: Not Given Pantoprazole Sodium (Protonix Ec Tab) 40 mg PO ACB [facility] Last Admin: 02/09/17 09:00 Dose: 40 mg Zinc Sulfate (Zinc Sulfate 220 Mg Cap) 220 mg PO DAILY [facility] Last Admin: 02/09/17 09:00 Dose: 220 mg - Labs Labs: 02/09/17 05:40 02/09/17 05:40 PT 13.1 SECONDS (9.4-12.5) H 02/09/17 05:40 INR 1.19 (0.93-1.08) H 02/09/17 05:40 APTT 34.9 Seconds (25.1-36.5) 02/09/17 05:40 - Constitutional Appears: Well, Non-toxic, No Acute Distress - Extremities Exam Additional comments: Lower extremity focused examination: Small amount of serosanguinous strikethrough noted to inner aspect of L heel dressing. Vasc: DP/PT pulses palpable 2/4 B/L. Temperature gradient warm to warm B/L. CFT < 3 sec to all digits. Minimal non-pitting edema localized to L heel. Neuro: Protective sensation grossly diminished B/L Derm: L posteromedial heel exhibits 1.5cm x 1.3cm x 0.2cm ulceration with 90% granular and 10% fibrotic base. Jose Manuel-wound skin exhibits increased strength and is decreasing in bogginess. Minimal fibrotic slough lies around periphery of wound near margins. Minimal sanguinous drainage noted on dressing with no active drainage on exam. . (+)Probe to bone on initial admission, now negative with tissue filling wound bed that is mixed fibrotic and granular in nature. Erythema noted to jose manuel-wound previously is resolving at this time. Additional 0.9cm x 0.6cm x 0.1cm superficial ulceration noted to posterior heel with primarily granular base at this time, no malodor, no fluctuance, no bogginess, no undermining, and negative probe to bone. Wound shows positive signs of epithelialization. Ortho: Involuntary muscle spasms noted to B/L LE, L>R. No tenderness to palpation of L heel at site of pressure ulcerations. Mild tenderness upon elevation of L leg. - Neurological Exam Neurological Exam: Alert, Awake, Oriented x3 - Psychiatric Exam Psychiatric exam: Normal Affect, Normal Mood Assessment and Plan - Assessment and Plan (Free Text) Assessment: 51 y/o paraplegic male with left heel pressure ulceration that previously probed to bone, now healing. Pt also has additional posterior heel superficial ulceration secondary to pressure Plan: Patient seen and evaluated at bedside with attending Dr. 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
--- NOTE | 2017-02-09 12:06 | CP.PCM.PN ---
Subjective - Date & Time of Evaluation Date of Evaluation: 02/09/17 Time of Evaluation: 11:05 - Subjective Subjective: Comfortable in bed, no fevers, not in distress, no abdominal pain, no nausea. Objective - Vital Signs/Intake and Output Vital Signs (last 24 hours): Temp Pulse Resp BP Pulse Ox 98.0 F 57 L 20 119/56 L 98 02/09/17 06:00 02/09/17 06:00 02/09/17 06:00 02/09/17 06:00 02/09/17 06:00 Intake and Output: 02/09/17 02/09/17 06:59 18:59 Intake Total 570 Output Total 2300 Balance -1730 - Medications Medications: Current Medications Ascorbic Acid (Vitamin C 500 Mg Tab) 500 mg PO DAILY [facility] Last Admin: 02/09/17 08:59 Dose: 500 mg Baclofen (Lioresal) 20 mg PO TID [facility] Last Admin: 02/09/17 09:00 Dose: 20 mg Enoxaparin Sodium (Lovenox) 100 mg SC 0000,1200 [facility] PRN Reason: Protocol Last Admin: 02/08/17 23:40 Dose: 100 mg Gabapentin (Neurontin) 300 mg PO TID [facility] PRN Reason: Protocol Last Admin: 02/09/17 09:00 Dose: 300 mg Hydromorphone HCl (Dilaudid) 0.5 mg IVP Q3H PRN PRN Reason: Pain, moderate (4-7) Last Admin: 02/09/17 06:48 Dose: 0.5 mg Vancomycin HCl (Vancomycin 1gm) 1 gm in 250 mls @ 167 mls/hr IVPB Q12H [facility] PRN Reason: Protocol Last Admin: 02/09/17 06:48 Dose: 167 mls/hr Meropenem 1 gm/ Dextrose 100 mls @ 100 mls/hr IVPB Q8 [facility] PRN Reason: Protocol Stop: 02/11/17 14:01 Last Admin: 02/09/17 05:45 Dose: 100 mls/hr Mupirocin (Bactroban Ointment) 0 gm TOP BID [facility] Last Admin: 02/09/17 09:27 Dose: Not Given Pantoprazole Sodium (Protonix Ec Tab) 40 mg PO ACB [facility] Last Admin: 02/09/17 09:00 Dose: 40 mg Zinc Sulfate (Zinc Sulfate 220 Mg Cap) 220 mg PO DAILY [facility] Last Admin: 02/09/17 09:00 Dose: 220 mg - Labs Labs: 02/09/17 05:40 02/09/17 05:40 PT 13.1 SECONDS (9.4-12.5) H 02/09/17 05:40 INR 1.19 (0.93-1.08) H 02/09/17 05:40 APTT 34.9 Seconds (25.1-36.5) 02/09/17 05:40 - Constitutional Appears: Non-toxic - Head Exam Head Exam: NORMAL INSPECTION - ENT Exam ENT Exam: Mucous Membranes Moist - Neck Exam Neck Exam: absent: Lymphadenopathy, Meningismus - Respiratory Exam Respiratory Exam: Decreased Breath Sounds. absent: Rales - Cardiovascular Exam Cardiovascular Exam: +S1, +S2 - GI/Abdominal Exam GI & Abdominal Exam: Soft. absent: Tenderness Additional comments: colostomy in place Assessment and Plan - Assessment and Plan (Free Text) Plan: Assessment Pilonidal abscess and sacral decubitus infection / osteomyelitis as well as left heel ulcer infection S/P sacral debridement POD #7, S/P colostomy POD #3 history of epidural abscess secondary to Strep pneumoniae with associated cord compression and lower extremity paralysis and neurogenic bladder S/P neurosurgery for abscess drainage and laminectomy history of partial small bowel obstruction significant smoking history alcohol abuse obesity with BMI 40 Plan continue Vancomycin and Merrem ; wound cx only growing Corynebacterium but is more likely superficial swab - aim for 4-6 weeks of antibiotics with weekly ESR , CRP, CBC, CMP while on antibiotics; Vanco trough at 19.3 is within the 15-20 target range - ideally Vanco trough should be measured 2 times a week, at the very least once a week follow up OR pathology taken 7 days ago will continue to monitor clinically while the patient is in the hospital
[2017-02-09 12:10] VITALS: BP 128/74; PULSE 63; TEMP 98.4
[2017-02-09] MEDS: Enoxaparin 100 mg Syringe SC SCH (12:24)
--- NOTE | 2017-02-09 14:33 | CP.PCM.DIS ---
<Vicki Sherwood - Last Filed: 02/09/17 14:21> Provider - Provider Date of Admission: 01/27/17 16:41 Attending physician: Tobin Piedra MD Primary care physician: NO PRIMARY CARE PROVIDER Consults: ID: Dr. Coronel Podiatry: Dr. Jalloh GI: Dr. Allen Surgery: Dr. Aksew Time Spent in preparation of Discharge (in minutes): 45 Hospital Course - Lab Results Lab Results: Micro Results 01/27/17 20:30 Sacral Gram Stain - Final 01/27/17 20:30 Sacral Wound Culture - Final Corynebacterium Species 01/27/17 18:36 Foot - Left Gram Stain - Final 01/27/17 18:36 Foot - Left Wound Culture - Final Corynebacterium Species 01/28/17 06:00 Urine,Clean Catch Urine Culture - Final No Growth (<1,000 CFU/ML) 01/28/17 10:00 Stool C. difficile Antigen & Toxin A,B (M - Final Most Recent Lab Values WBC 4.8 10^3/ul (4.5-11.0) 02/09/17 05:40 RBC 3.49 10^6/uL (3.5-6.1) L 02/09/17 05:40 Hgb 9.1 g/dL (14.0-18.0) L 02/09/17 05:40 Hct 29.4 % (42.0-52.0) L 02/09/17 05:40 MCV 84.2 fl (80.0-105.0) 02/09/17 05:40 MCH 26.1 pg (25.0-35.0) 02/09/17 05:40 MCHC 31.0 g/dl (31.0-37.0) 02/09/17 05:40 RDW 15.3 % (11.5-14.5) H 02/09/17 05:40 Plt Count 220 10^3/uL (120.0-450.0) 02/09/17 05:40 MPV 11.0 fl (7.0-11.0) 02/09/17 05:40 Gran % 52.5 % (50.0-68.0) 02/09/17 05:40 Lymph % (Auto) 34.9 % (22.0-35.0) 02/09/17 05:40 [place] % (Auto) 9.9 % (1.0-6.0) H 02/09/17 05:40 Eos % (Auto) 2.5 % (1.5-5.0) 02/09/17 05:40 Baso % (Auto) 0.2 % (0.0-3.0) 02/09/17 05:40 Gran # 2.49 (1.4-6.5) 02/09/17 05:40 Lymph # 1.7 (1.2-3.4) 02/09/17 05:40 [place] # 0.5 (0.1-0.6) 02/09/17 05:40 Eos # 0.1 (0.0-0.7) 02/09/17 05:40 Baso # 0.01 K/mm3 (0.0-2.0) 02/09/17 05:40 Corrected WBC (Man) Cancelled 01/30/17 07:26 Neutrophils % (Manual) Cancelled 01/30/17 07:26 Band Neutrophils % Cancelled 01/30/17 07:26 Lymphocytes % (Manual) Cancelled 01/30/17 07:26 Atypical Lymphs % Cancelled 01/30/17 07:26 Monocytes % (Manual) Cancelled 01/30/17 07:26 Eosinophils % (Manual) Cancelled 01/30/17 07:26 Basophils % (Manual) Cancelled 01/30/17 07:26 Metamyelocytes % Cancelled 01/30/17 07:26 Myelocytes % Cancelled 01/30/17 07:26 Promyelocytes % Cancelled 01/30/17 07:26 Nucleated RBC % Cancelled 01/30/17 07:26 Hypersegmented Polys Cancelled 01/30/17 07:26 Immature Lymphocytes Cancelled 01/30/17 07:26 Blast Cells Cancelled 01/30/17 07:26 Smudge Cells Cancelled 01/30/17 07:26 Toxic Granulation Cancelled 01/30/17 07:26 Dohle Bodies Cancelled 01/30/17 07:26 Brittany Rods Cancelled 01/30/17 07:26 Platelet Evaluation Cancelled 01/30/17 07:26 Plt Clumps, EDTA Cancelled 01/30/17 07:26 Large Platelets Cancelled 01/30/17 07:26 Giant Platelets Cancelled 01/30/17 07:26 Polychromasia Cancelled 01/30/17 07:26 Hypochromasia Cancelled 01/30/17 07:26 Hyperchromasia Cancelled 01/30/17 07:26 Poikilocytosis (manual Cancelled 01/30/17 07:26 Basophilic Stippling Cancelled 01/30/17 07:26 Anisocytosis (manual) Cancelled 01/30/17 07:26 Microcytosis (manual) Cancelled 01/30/17 07:26 Macrocytosis (manual) Cancelled 01/30/17 07:26 Spherocytes Cancelled 01/30/17 07:26 Sickle Cells Cancelled 01/30/17 07:26 Target Cells Cancelled 01/30/17 07:26 Tear Drop Cells Cancelled 01/30/17 07:26 Ovalocytes Cancelled 01/30/17 07:26 Stomatocytes Cancelled 01/30/17 07:26 Helmet Cells Cancelled 01/30/17 07:26 [place] Rings Cancelled 01/30/17 07:26 Katelyn Cells Cancelled 01/30/17 07:26 Acanthocytes (Spur) Cancelled 01/30/17 07:26 Rouleaux Cancelled 01/30/17 07:26 Schistocytes Cancelled 01/30/17 07:26 ESR 131 mm/hr (0.00-15.0) H 01/28/17 06:15 PT 13.1 SECONDS (9.4-12.5) H 02/09/17 05:40 INR 1.19 (0.93-1.08) H 02/09/17 05:40 APTT 34.9 Seconds (25.1-36.5) 02/09/17 05:40 Sodium 141 mmol/L (132-148) 02/09/17 05:40 Potassium 4.0 mmol/L (3.6-5.0) 02/09/17 05:40 Chloride 104 mmol/L (98-107) 02/09/17 05:40 Carbon Dioxide 32 mmol/L (21-33) 02/09/17 05:40 Anion Gap 9 (10-20) L 02/09/17 05:40 BUN 9 mg/dL (7-21) 02/09/17 05:40 Creatinine 0.6 mg/dL (0.8-1.5) L 02/09/17 05:40 Est GFR ( Amer) > 60 02/09/17 05:40 Est GFR (Non-Af Amer) > 60 02/09/17 05:40 Random Glucose 97 mg/dL (70-110) 02/09/17 05:40 Hemoglobin A1c 5.7 % (4.2-6.5) 01/30/17 07:26 Lactic Acid 1.2 mmol/L (0.7-2.1) 01/27/17 18:25 Calcium 9.0 mg/dL (8.4-10.5) 02/09/17 05:40 Phosphorus 3.6 mg/dL (2.5-4.5) 02/09/17 05:40 Magnesium 2.1 mg/dL (1.7-2.2) 02/09/17 05:40 Total Bilirubin 0.4 mg/dL (0.2-1.3) 02/09/17 05:40 Direct Bilirubin 0.4 mg/dL (0.0-0.4) 01/30/17 06:30 AST 17 U/L (17-59) 02/09/17 05:40 ALT 23 U/L (7-56) 02/09/17 05:40 Alkaline Phosphatase 59 U/L (38-126) 02/09/17 05:40 C-React Prot High Sens > 15.00 mg/L (1.00-3.00) H 01/28/17 06:15 Total Protein 6.5 g/dL (5.8-8.3) 02/09/17 05:40 Albumin 2.9 g/dL (3.0-4.8) L 02/09/17 05:40 Globulin 3.6 gm/dL 02/09/17 05:40 Albumin/Globulin Ratio 0.8 (1.1-1.8) L 02/09/17 05:40 Procalcitonin 0.11 NG/ML (0.19-0.49) L 01/27/17 15:48 Urine Color Yellow (YELLOW) 01/28/17 06:00 Urine Appearance Sl cloudy (CLEAR) 01/28/17 06:00 Urine pH 6.0 (4.7-8.0) 01/28/17 06:00 Ur Specific [place] 1.025 (1.005-1.035) 01/28/17 06:00 Urine Protein Negative mg/dL (<30 mg/dL) 01/28/17 06:00 Urine Glucose (UA) Negative mg/dL (NEGATIVE) 01/28/17 06:00 Urine Ketones Negative mg/dL (NEGATIVE) 01/28/17 06:00 Urine Blood Moderate (NEGATIVE) H 01/28/17 06:00 Urine Nitrate Negative (NEGATIVE) 01/28/17 06:00 Urine Bilirubin Negative (NEGATIVE) 01/28/17 06:00 Urine Urobilinogen 0.2 E.U./dL (<1 E.U./dL) 01/28/17 06:00 Ur Leukocyte Esterase Moderate Ang/uL (NEGATIVE) H 01/28/17 06:00 Urine RBC 2 - 5 /hpf (0-2) 01/28/17 06:00 Urine WBC Tntc /hpf (0-6) 01/28/17 06:00 Ur Epithelial Cells 0 - 2 /hpf (0-5) 01/28/17 06:00 Urine Bacteria Mod (NEG) 01/28/17 06:00 Vancomycin Trough 15.7 ug/mL (5.0-10.0) H* 02/08/17 21:30 - Hospital Course Hospital Course: 51 year old male parapledgic with past medical history of spinal abcess, laminectomy, DVT presents to the ED form wound care due to possible heel infection of the left foot. Patient said he has been coming to the hospital for wound care, and today they told him to come straight to the ED because he may have a worsening infection on his left heel. Patient denied any trauma, but does not have much sensation in his lower extremities so he cannot feel for any pain. He states that his sister had recently told him that there was a foul smell coming from his foot but patient did not think it was serious. ID consulted, Dr. Coronel. Wound culture ordered. Blood cultures show no growth after 5 days, foot culture positive for corynebacterium. Started on vancomycin and meropenem. Podiatry evaluation requested. Dr. Reyes consulted. Xray of the left foot: no focal lesion, degenerative changes of tibiotalar and subtalar joints. Corticol sclerosis and osteophytes. MRI of left ankle: no evidence of osteomyelitis radiologically. Clinically OM on account of ability to probe to bone. Patient is bedridden; sacral decubitus. Surgery evaluation requested for debridement and colostomy on account of fecal incontinence. Dr. Askew consulted. POD #5 for surgical debridement of ulcer. surgical pathology report showed fragments of acutely inflamed, necrotic fibroconnective tissue and bone w / acute osteomyelitis. vitamin C and zinc to promote wound healing. sacral wound cx growing corynebacterium. stool c diff negative for Ag and Toxin. Abd/ Pelvic CT showing 5 x 4.3 cm pilonidal abscess with associated destructive changes involving the distal sacrum and portion of the coccyx, consistent with acute osteomyelitis. No rectocutaneous fistula seen. PT evaluation, rec [facility] [place] and continued rehab. continue home neurontin. Pt is using a haque for incontinence. GI consulted, Dr. Allen, pt sp colonoscopy with no acute pathology identified. Pt was scheduled for colostomy. Upon DC to [facility] [place], continue Merrem and Vanc for 4- 6 weeks, f/u OR pathology, Corynebacterium from culture likely superficial swab , will need weekly labs (ESR, CRP, CBC, CMP) while on antibiotics, goal for Vanc trough is 15-20, continue to check trough 2x per week while on abx. Pen steven drains in place by surgery. FU with surgery within 1 week to remove drains. FU with Podiatry within 1 week, for heel ulcer. Pt DC to [facility] with IV abx. Discharge Exam - Head Exam Head Exam: NORMAL INSPECTION - Eye Exam Eye Exam: EOMI, Normal appearance Pupil Exam: NORMAL ACCOMODATION, PERRL - ENT Exam ENT Exam: Mucous Membranes Moist - Respiratory Exam Respiratory Exam: Clear to PA & Lateral, NORMAL BREATHING PATTERN, UNREMARKABLE - Cardiovascular Exam Cardiovascular Exam: RRR, +S1, +S2 - GI/Abdominal Exam GI & Abdominal Exam: Normal Bowel Sounds, Soft. absent: Tenderness - Extremities Exam Extremities exam: normal inspection Additional comments: heel booties in place - Neurological Exam Neurological exam: Alert, CN II-XII Intact, Oriented x3, Reflexes Normal - Psychiatric Exam Psychiatric exam: Normal Affect, Normal Mood - Skin Skin Exam: Dry, Intact, Normal Color, Warm Discharge Plan - Discharge Medications Prescriptions: Mupirocin 2% Ointment [Bactroban Ointment] 1 g TOP BID #1 tube Warfarin [Coumadin] 4 mg PO 1800 #30 tab Enoxaparin [Lovenox] 100 mg SC 0000,1200 #10 syr Meropenem [Merrem IV] 1 gm IV Q8H 42 Days pds Vancomycin/0.9 % Sod Chloride [Vanco 1 Gram/250 ml-0.9% NaCl] 1 gm IV Q12H 42 Days plast..bag Ascorbic Acid [Vitamin C 500 mg Tab] 500 mg PO DAILY #30 tab Zinc [Zinc Sulfate 220 mg Cap] 220 mg PO DAILY #30 cap - Follow Up Plan Condition: FAIR Disposition: HOME/ ROUTINE Instructions: Colostomy Care (GEN), Acute Wound Care (GEN), Debridement (GEN) Additional Instructions: 1. Pt is to DC to [facility] 2. Daily bactroban dry sterile dressings to heels. 3. Pt to fu with surgery as outpt to remove payton drains 4. Pt is to fu with wound care center next , please confirm appt with Dr. Jalloh. 5. pt is to start coumadin tomorrow 5mg, daily INR, bridge with lovenox till INR >2. target INR 2-3 6. Pt is to have IV abx for 4-6 weeks. 7. Dry sterile dressing for sacral wound daily. sacral drain to be removed next thursday. Referrals: PCP,NO [Primary Care Provider] - <Tobin Piedra - Last Filed: 02/09/17 17:46> Provider - Provider Date of Admission: 01/27/17 16:41 Attending physician: Tobin Piedra MD Primary care physician: [facility] PRIMARY CARE PROVIDER Hospital Course - Lab Results Lab Results: Micro Results 01/27/17 20:30 Sacral Gram Stain - Final 01/27/17 20:30 Sacral Wound Culture - Final Corynebacterium Species 01/27/17 18:36 Foot - Left Gram Stain - Final 01/27/17 18:36 Foot - Left Wound Culture - Final Corynebacterium Species 01/28/17 06:00 Urine,Clean Catch Urine Culture - Final No Growth (<1,000 CFU/ML) 01/28/17 10:00 Stool C. difficile Antigen & Toxin A,B (M - Final Most Recent Lab Values WBC 4.8 10^3/ul (4.5-11.0) 02/09/17 05:40 RBC 3.49 10^6/uL (3.5-6.1) L 02/09/17 05:40 Hgb 9.1 g/dL (14.0-18.0) L 02/09/17 05:40 Hct 29.4 % (42.0-52.0) L 02/09/17 05:40 MCV 84.2 fl (80.0-105.0) 02/09/17 05:40 MCH 26.1 pg (25.0-35.0) 02/09/17 05:40 MCHC 31.0 g/dl (31.0-37.0) 02/09/17 05:40 RDW 15.3 % (11.5-14.5) H 02/09/17 05:40 Plt Count 220 10^3/uL (120.0-450.0) 02/09/17 05:40 MPV 11.0 fl (7.0-11.0) 02/09/17 05:40 Gran % 52.5 % (50.0-68.0) 02/09/17 05:40 Lymph % (Auto) 34.9 % (22.0-35.0) 02/09/17 05:40 [place] % (Auto) 9.9 % (1.0-6.0) H 02/09/17 05:40 Eos % (Auto) 2.5 % (1.5-5.0) 02/09/17 05:40 Baso % (Auto) 0.2 % (0.0-3.0) 02/09/17 05:40 Gran # 2.49 (1.4-6.5) 02/09/17 05:40 Lymph # 1.7 (1.2-3.4) 02/09/17 05:40 [place] # 0.5 (0.1-0.6) 02/09/17 05:40 Eos # 0.1 (0.0-0.7) 02/09/17 05:40 Baso # 0.01 K/mm3 (0.0-2.0) 02/09/17 05:40 Corrected WBC (Man) Cancelled 01/30/17 07:26 Neutrophils % (Manual) Cancelled 01/30/17 07:26 Band Neutrophils % Cancelled 01/30/17 07:26 Lymphocytes % (Manual) Cancelled 01/30/17 07:26 Atypical Lymphs % Cancelled 01/30/17 07:26 Monocytes % (Manual) Cancelled 01/30/17 07:26 Eosinophils % (Manual) Cancelled 01/30/17 07:26 Basophils % (Manual) Cancelled 01/30/17 07:26 Metamyelocytes % Cancelled 01/30/17 07:26 Myelocytes % Cancelled 01/30/17 07:26 Promyelocytes % Cancelled 01/30/17 07:26 Nucleated RBC % Cancelled 01/30/17 07:26 Hypersegmented Polys Cancelled 01/30/17 07:26 Immature Lymphocytes Cancelled 01/30/17 07:26 Blast Cells Cancelled 01/30/17 07:26 Smudge Cells Cancelled 01/30/17 07:26 Toxic Granulation Cancelled 01/30/17 07:26 Dohle Bodies Cancelled 01/30/17 07:26 Brittany Rods Cancelled 01/30/17 07:26 Platelet Evaluation Cancelled 01/30/17 07:26 Plt Clumps, EDTA Cancelled 01/30/17 07:26 Large Platelets Cancelled 01/30/17 07:26 Giant Platelets Cancelled 01/30/17 07:26 Polychromasia Cancelled 01/30/17 07:26 Hypochromasia Cancelled 01/30/17 07:26 Hyperchromasia Cancelled 01/30/17 07:26 Poikilocytosis (manual Cancelled 01/30/17 07:26 Basophilic Stippling Cancelled 01/30/17 07:26 Anisocytosis (manual) Cancelled 01/30/17 07:26 Microcytosis (manual) Cancelled 01/30/17 07:26 Macrocytosis (manual) Cancelled 01/30/17 07:26 Spherocytes Cancelled 01/30/17 07:26 Sickle Cells Cancelled 01/30/17 07:26 Target Cells Cancelled 01/30/17 07:26 Tear Drop Cells Cancelled 01/30/17 07:26 Ovalocytes Cancelled 01/30/17 07:26 Stomatocytes Cancelled 01/30/17 07:26 Helmet Cells Cancelled 01/30/17 07:26 [place] Rings Cancelled 01/30/17 07:26 [place] Cells Cancelled 01/30/17 07:26 Acanthocytes (Spur) Cancelled 01/30/17 07:26 Rouleaux Cancelled 01/30/17 07:26 Schistocytes Cancelled 01/30/17 07:26 ESR 131 mm/hr (0.00-15.0) H 01/28/17 06:15 PT 13.1 SECONDS (9.4-12.5) H 02/09/17 05:40 INR 1.19 (0.93-1.08) H 02/09/17 05:40 APTT 34.9 Seconds (25.1-36.5) 02/09/17 05:40 Sodium 141 mmol/L (132-148) 02/09/17 05:40 Potassium 4.0 mmol/L (3.6-5.0) 02/09/17 05:40 Chloride 104 mmol/L (98-107) 02/09/17 05:40 Carbon Dioxide 32 mmol/L (21-33) 02/09/17 05:40 Anion Gap 9 (10-20) L 02/09/17 05:40 BUN 9 mg/dL (7-21) 02/09/17 05:40 Creatinine 0.6 mg/dL (0.8-1.5) L 02/09/17 05:40 Est GFR ( Amer) > 60 02/09/17 05:40 Est GFR (Non-Af Amer) > 60 02/09/17 05:40 Random Glucose 97 mg/dL (70-110) 02/09/17 05:40 Hemoglobin A1c 5.7 % (4.2-6.5) 01/30/17 07:26 Lactic Acid 1.2 mmol/L (0.7-2.1) 01/27/17 18:25 Calcium 9.0 mg/dL (8.4-10.5) 02/09/17 05:40 Phosphorus 3.6 mg/dL (2.5-4.5) 02/09/17 05:40 Magnesium 2.1 mg/dL (1.7-2.2) 02/09/17 05:40 Total Bilirubin 0.4 mg/dL (0.2-1.3) 02/09/17 05:40 Direct Bilirubin 0.4 mg/dL (0.0-0.4) 01/30/17 06:30 AST 17 U/L (17-59) 02/09/17 05:40 ALT 23 U/L (7-56) 02/09/17 05:40 Alkaline Phosphatase 59 U/L (38-126) 02/09/17 05:40 C-React Prot High Sens > 15.00 mg/L (1.00-3.00) H 01/28/17 06:15 Total Protein 6.5 g/dL (5.8-8.3) 02/09/17 05:40 Albumin 2.9 g/dL (3.0-4.8) L 02/09/17 05:40 Globulin 3.6 gm/dL 02/09/17 05:40 Albumin/Globulin Ratio 0.8 (1.1-1.8) L 02/09/17 05:40 Procalcitonin 0.11 NG/ML (0.19-0.49) L 01/27/17 15:48 Urine Color Yellow (YELLOW) 01/28/17 06:00 Urine Appearance Sl cloudy (CLEAR) 01/28/17 06:00 Urine pH 6.0 (4.7-8.0) 01/28/17 06:00 Ur Specific [place] 1.025 (1.005-1.035) 01/28/17 06:00 Urine Protein Negative mg/dL (<30 mg/dL) 01/28/17 06:00 Urine Glucose (UA) Negative mg/dL (NEGATIVE) 01/28/17 06:00 Urine Ketones Negative mg/dL (NEGATIVE) 01/28/17 06:00 Urine Blood Moderate (NEGATIVE) H 01/28/17 06:00 Urine Nitrate Negative (NEGATIVE) 01/28/17 06:00 Urine Bilirubin Negative (NEGATIVE) 01/28/17 06:00 Urine Urobilinogen 0.2 E.U./dL (<1 E.U./dL) 01/28/17 06:00 Ur Leukocyte Esterase Moderate Ang/uL (NEGATIVE) H 01/28/17 06:00 Urine RBC 2 - 5 /hpf (0-2) 01/28/17 06:00 Urine WBC Tntc /hpf (0-6) 01/28/17 06:00 Ur Epithelial Cells 0 - 2 /hpf (0-5) 01/28/17 06:00 Urine Bacteria Mod (NEG) 01/28/17 06:00 Vancomycin Trough 15.7 ug/mL (5.0-10.0) H* 02/08/17 21:30 Attending/Attestation - Attestation I have personally seen and examined this patient.: Yes I have fully participated in the care of the patient.: Yes I have reviewed all pertinent clinical information, including history, physical exam and plan: Yes Notes (Text): 02/09/17 17:43 attending note; Patient seen and examined With resident. Patient is a 51 year old bedridden male with history of spinal abscess, laminectomy, paraplegia, DVT who is admitted with Left heel osteomyelitis and sacral decubitus / osteomyelitis on vancomycin and meropenem. Patient needs 4-6 weeks of IV antibiotics. Picc line already in place. CT abdomen and pelvis showed sacral osteomyelitis. Patient underwent sacral debridement and colonoscopy which did not reveal any abnormalities. He also had colostomy. Denies any complaints. Continue Mvi, zinc and vitamin C. Patient will be transferred to [facility] [place] today. wound care instructions given. Patient will follow-up with Dr. Jalloh next Thursday. Patient will also follow-up with Dr. Askew next Thursday for pen steven drain removal in the sacral area. patient will start Coumadin tomorrow. Continue Lovenox till INR is therapeutic. Instructions given. Upon discharge the patient will follow-up with PMD . diagnosis; Left heel osteomyelitis Sacral osteomyelitis Status post sacral debridement Status post colostomy Paraplegia h/o Laminectomy
== END 2017-02-09 19:30 | DRG 559 ==
LOC: ED 13:33 → ERH 16:41 → 5RNO 19:13 → 2RSO 02-06 21:23
PROVIDERS: ADMIT Internal Medicine; ATTEND Internal Medicine
PROC: 02HV33Z Insertion of Infusion Device into Superior Vena Cava, Percutaneous Approach (ICD-10-PCS; 2017-01-30)
PROC: B548ZZA Ultrasonography of Superior Vena Cava, Guidance (ICD-10-PCS; 2017-01-30)
PROC: 0J9900Z Drainage of Buttock Subcutaneous Tissue and Fascia with Drainage Device, Open Approach (ICD-10-PCS; 2017-02-03)
PROC: 0DJD8ZZ Inspection of Lower Intestinal Tract, Via Natural or Artificial Opening Endoscopic (ICD-10-PCS; 2017-02-03)
PROC: 0QB10ZZ Excision of Sacrum, Open Approach (ICD-10-PCS; principal; 2017-02-03 07:30)
PROC: 0D1L0Z4 Bypass Transverse Colon to Cutaneous, Open Approach (ICD-10-PCS; 2017-02-06 14:30)
DX: M86.8X7 Other osteomyelitis, ankle and foot (principal); M46.28 Osteomyelitis of vertebra, sacral and sacrococcygeal region; K61.1 Rectal abscess; L05.01 Pilonidal cyst with abscess; L89.154 Pressure ulcer of sacral region, stage 4; L89.629 Pressure ulcer of left heel, unspecified stage; R15.9 Full incontinence of feces; G82.20 Paraplegia, unspecified; N31.9 Neuromuscular dysfunction of bladder, unspecified; Z68.41 Body mass index [BMI] 40.0-44.9, adult; E66.9 Obesity, unspecified; I10 Essential (primary) hypertension; Z74.01 Bed confinement status; Z86.718 Personal history of other venous thrombosis and embolism; Z79.01 Long term (current) use of anticoagulants; Z86.61 Personal history of infections of the central nervous system; Z87.891 Personal history of nicotine dependence

== ENCOUNTER 2017-04-21 18:51 | Inpatient (IN) | payer OTHER ==
[2017-04-21 18:52] VITALS: BMI 28.7
--- NOTE | 2017-04-21 20:17 | ED PDOC ---
Arrival/HPI - General Chief Complaint: Wound Check Time Seen by Provider: 04/21/17 19:48 Historian: Patient - History of Present Illness Narrative History of Present Illness (Text): 04/21/17 20:17 A 52 year old male, whose past medical history includes spinal abscess, paraplegia, sacral and heel infected ulcers, and osteomyelitis, presents to the emergency department complaining of a worsening sacral ulcer. Patient notes a foul smelling purulent discharge from the lesion on his right buttock. Patient reports he follows up with wound care but states his sacral wound has progressively worsened. Patient denies any fever, chills, nausea, vomiting, abdominal pain, chest pain, shortness of breath or any other complaints. Past Medical History - Provider Review Nursing Documentation Reviewed: Yes - Infectious Disease Hx of Infectious Diseases: None - Cardiac Hx Cardiac Disorders: No - Pulmonary Hx Respiratory Disorders: No - Neurological Other/Comment: paraplegic - HEENT Hx HEENT Disorder: No - Renal Hx Renal Disorder: No - Endocrine/Metabolic Hx Endocrine Disorders: No - Hematological/Oncological Hx Blood Transfusions: Yes - Integumentary Hx Dermatological Disorder: No - Musculoskeletal/Rheumatological Hx Musculoskeletal Disorders: Yes Hx Falls: No Other/Comment: paraplegic - Gastrointestinal Hx Gastrointestinal Disorders: Yes Hx Colostomy: Yes - Genitourinary/Gynecological Hx Genitourinary Disorders: Yes Hx Incontinence: Yes Other/Comment: has haque bag and diaper - Psychiatric Hx Psychophysiologic Disorder: No Hx Substance Use: No - Surgical History Other/Comment: colostomy bag - Anesthesia Hx Anesthesia Reactions: No Hx Malignant Hyperthermia: No Family/Social History - Physician Review Nursing Documentation Reviewed: Yes Family/Social History: No Known Family HX Smoking Status: Former Smoker Hx Alcohol Use: No Hx Substance Use: No Allergies/Home Meds Allergies/Adverse Reactions: Allergies ceftriaxone [From Rocephin] Allergy (Verified 04/21/17 19:23) RASH Cephalosporins Allergy (Verified 04/21/17 19:23) RASH Home Medications: Home Meds Medication Instructions Recorded Confirmed Baclofen [Lioresal] 20 mg PO BID 04/21/17 04/21/17 Gabapentin [Neurontin] 300 mg PO BID 04/21/17 04/21/17 Warfarin [Coumadin] 4 mg PO DAILY 04/21/17 04/21/17 Review of Systems - Physician Review All systems were reviewed & negative as marked: Yes - Review of Systems Constitutional: absent: Fevers, Night Sweats Respiratory: absent: SOB Cardiovascular: absent: Chest Pain Gastrointestinal: absent: Abdominal Pain, Nausea, Vomiting Skin: Ulcer (Sacral ulcer to right buttock with discharge) Physical Exam Vital Signs Reviewed: Yes Vital Signs Temp Pulse Resp BP Pulse Ox 04/21/17 19:15 97.6 F 66 18 121/61 99 Temperature: Afebrile Blood Pressure: Normal Pulse: Regular Respiratory Rate: Normal Appearance: Positive for: Well-Appearing, Non-Toxic, Comfortable Pain Distress: None Mental Status: Positive for: Alert and Oriented X 3 - Systems Exam Head: Present: Atraumatic, Normocephalic Pupils: Present: PERRL Extroacular Muscles: Present: EOMI Conjunctiva: Present: Normal Mouth: Present: Moist Mucous Membranes Neck: Present: Normal Range of Motion Respiratory/Chest: Present: Clear to Auscultation, Good Air Exchange. No: Respiratory Distress, Accessory Muscle Use Cardiovascular: Present: Regular Rate and Rhythm, Normal S1, S2. No: Murmurs Abdomen: Present: Normal Bowel Sounds. No: Tenderness, Distention, Peritoneal Signs Back: Present: Other (Large cavitated sacral ulcer to right buttock, with foul smelling copious purulent mucoid discharge and mils surrounding erythema) Upper Extremity: Present: Normal Inspection, NORMAL PULSES. No: Cyanosis, Edema Lower Extremity: Present: Normal Inspection, NORMAL PULSES, Other (bandaged heel wound). No: Edema Neurological: Present: Speech Normal, Other (positive paraplegia) Skin: Present: Warm, Dry, Normal Color. No: Rashes Psychiatric: Present: Alert, Oriented x 3, Normal Insight, Normal Concentration Medical Decision Making ED Course and Treatment: 04/21/17 20:17 Impression: A 52 year old male with worsening sacral ulcer to right buttock Plan: -- Labs -- Blood and Wound culture -- Merrem and Vancomycin -- Reassess and disposition Progress Notes: 04/21/17 22:01 Case discussed with executive assistant to president administration dean, who is aware and agrees to evaluate pt. 04/21/17 22:24 Case discussed with medical review coordinator administration dean, who is aware and agrees with plan. House doctor paged. 04/21/17 22:[address] Hernandez, who is aware and agrees with plan. Accepts pt in to hospitalist service. Pt will be admitted to [facility] for infected sacral ulcer/abscess. - Lab Interpretations Lab Results: 04/21/17 20:42 04/21/17 20:42 Lab Results 04/21/17 20:42: WBC 8.3 D, RBC 4.24, Hgb 10.9 L, Hct 33.9 L, MCV 80.0 D, MCH 25.7, MCHC 32.2, RDW 15.7 H, Plt Count 216, MPV 11.4 H 04/21/17 20:42: Sodium 142, Potassium 3.7, Chloride 102, Carbon Dioxide 30, Anion Gap 14, BUN 25 H, Creatinine 0.8, Est GFR ( Amer) > 60, Est GFR ( Non-Af Amer) > 60, Random Glucose 81, Calcium 9.8, Total Bilirubin 0.4, AST 19, ALT 23, Alkaline Phosphatase 82, Total Protein 7.6, Albumin 3.7, Globulin 3.9, Albumin/Globulin Ratio 1.0 L I have reviewed the lab results: Yes - Medication Orders Current Medication Orders: Discontinued Medications Vancomycin HCl/Dextrose (Vancocin) 1 gm in 200 mls @ 133.333 mls/hr IV STAT STA PRN Reason: Protocol Stop: 04/21/17 22:04 Meropenem 500 mg/ Sodium (Chloride) 50 mls @ 100 mls/hr IVPB ONCE ONE PRN Reason: Protocol Stop: 04/21/17 21:07 Meropenem 500 mg/ Sodium (Chloride) 100 mls @ 100 mls/hr IVPB ONCE ONE PRN Reason: Protocol Stop: 04/21/17 21:37 Last Admin: 04/21/17 21:19 Dose: 100 mls/hr eMAR Start Stop Document 04/21/17 21:19 SS (Rec: 04/21/17 21:22 SS [id number]) Intravenous Solution Start Date 04/21/17 Start Time 21:22 End Date 04/21/17 End time 22:22 Total Infusion Time 60 Disposition/Present on Arrival - Present on Arrival Any Indicators Present on Arrival: No History of DVT/PE: Yes History of Uncontrolled Diabetes: No Urinary Catheter: Yes (present on arrival) History of Decub. Ulcer: Yes (sacral) History Surgical Site Infection Following: None - Disposition Have Diagnosis and Disposition been Completed?: Yes Diagnosis: Abscess, sacrum, Infected decubitus ulcer Disposition: HOSPITALIZED Disposition Time: 22:30 Patient Plan: Admission Condition: STABLE Referrals: Ishan Dominguez MD [Primary Care Provider] - Follow up with primary Forms: kwiry (Wolof)
[2017-04-21] MEDS ORDERED: Vancomycin 1 gm/D5W 200 ml 1 GM/200 ML BAG IV STA (20:35)
[2017-04-21] MEDS ORDERED: Meropenem 500 MG in Sodium Chloride 0.9% 50 ML IVPB ONE (20:38)
[2017-04-21 20:56] LABS: HEMOGLOBIN 10.9 g/dL (14.0-18.0); MEAN CORPUSCULAR HEMOGLOBIN 25.7 pg (25.0-35.0); MEAN CORPUSCULAR HGB CONC 32.2 g/dl (31.0-37.0); MEAN PLATELET VOLUME 11.4 fl (7.0-11.0); RBC 4.24 10^6/uL (3.5-6.1); RED CELL DISTRIBUTION WIDTH 15.7 % (11.5-14.5); WHITE BLOOD COUNT 8.3 10^3/ul (4.5-11.0)
[2017-04-21] MEDS ORDERED: Meropenem 500 MG in Sodium Chloride 0.9% 100 ML IVPB ONE (20:57)
[2017-04-21 21:09] LABS: ALBUMIN 3.7 g/dL (3.0-4.8); ALT/SGPT 23 U/L (7-56); AST/SGOT 19 U/L (17-59); BLOOD UREA NITROGEN 25 mg/dL (7-21); CALCIUM 9.8 mg/dL (8.4-10.5); GFR AFRICAN-AMERICAN > 60; GFR NON-AFRICAN AMERICAN > 60
--- NOTE | 2017-04-21 23:14 | CP.PCM.CON ---
History of Present Illness - History of Present Illness History of Present Illness: GENERAL SURGERY CONSULT NOTE FOR DR. BUNN 52yo M with PMHx of paraplegia, spinal abscess, DVT on Warfarin, HTN presents to the [facility] with right hip wound. Per the patient, he has been seeing Dr. Bunn at the wound care center. His last appointment was a couple weeks ago and his next appointment is on the . Per the patient, he has been putting Santyl on the wound and his brother has been doing daily dressing changes. He has also been turning side to side to avoid pressure on the area. The patient's brother told him to come to the ED for foul smelling discharge and odor coming from the right hip decubitus ulcer. PMHx: paraplegic, spinal abcess, laminectomy, DVT on Warfarin, HTN Surg: T2-4 laminectomy 07/07/16 and spinal abscess drainage, transverse end colostomy 02/06/17, debriedment of sacral abscess 02/03/17, Indwelling Haque Medications: Baclofen, Neurontin, Coumadin Allergy: ceftriaxone/cephalosporins Social:former smoker, has not had alcohol use for the past 6 months, denies any illicit drug use Review of Systems - Review of Systems All systems: reviewed and no additional remarkable complaints except (as per HPI ) Past Patient History - Infectious Disease Hx of Infectious Diseases: None - Past Social History Smoking Status: Former Smoker - CARDIAC Hx Cardiac Disorders: No - PULMONARY Hx Respiratory Disorders: No - NEUROLOGICAL Other/Comment: paraplegic - HEENT Hx HEENT Problems: No - RENAL Hx Chronic Kidney Disease: No - ENDOCRINE/METABOLIC Hx Endocrine Disorders: No - HEMATOLOGICAL/ONCOLOGICAL Hx Blood Transfusions: Yes - INTEGUMENTARY Hx Dermatological Problems: No - MUSCULOSKELETAL/RHEUMATOLOGICAL Hx Musculoskeletal Disorders: Yes Hx Falls: No Other/Comment: paraplegic - GASTROINTESTINAL Hx Gastrointestinal Disorders: Yes Hx Colostomy: Yes - GENITOURINARY/GYNECOLOGICAL Hx Genitourinary Disorders: Yes Hx Incontinence: Yes Other/Comment: has haque bag and diaper - PSYCHIATRIC Hx Psychophysiologic Disorder: No Hx Substance Use: No - SURGICAL HISTORY Other/Comment: colostomy bag - ANESTHESIA Hx Anesthesia Reactions: No Hx Malignant Hyperthermia: No Meds Allergies/Adverse Reactions: Allergies Allergy/AdvReac Type Severity Reaction Status Date / Time ceftriaxone [From Rocephin] Allergy RASH Verified 04/21/17 19:23 Cephalosporins Allergy RASH Verified 04/21/17 19:23 Physical Exam - Constitutional Appears: Non-toxic, No Acute Distress - Head Exam Head Exam: ATRAUMATIC, NORMAL INSPECTION - Eye Exam Eye Exam: EOMI, Normal appearance - Respiratory Exam Respiratory Exam: NORMAL BREATHING PATTERN. absent: Respiratory Distress - Cardiovascular Exam Cardiovascular Exam: +S1, +S2 - GI/Abdominal Exam GI & Abdominal Exam: Soft. absent: Distended, Firm, Guarding, Tenderness - Neurological Exam Neurological exam: Alert, CN II-XII Intact, Oriented x3 - Psychiatric Exam Psychiatric exam: Normal Affect, Normal Mood - Skin Additional comments: Sacral decubitus ulcer healing well Right hip ulcer with ~3x3 opening. Malodorous. No drainage seen. Mild surrounding erythema. Results - Vital Signs Recent Vital Signs: Last Vital Signs Temp 97.6 F 04/21/17 19:15 Pulse 66 04/21/17 19:15 Resp 18 04/21/17 19:15 BP 121/61 04/21/17 19:15 Pulse Ox 99 04/21/17 19:15 - Labs Result Diagrams: 04/22/17 05:00 04/22/17 05:00 Assessment & Plan - Assessment and Plan (Free Text) Assessment: 52yo M with PMHx of paraplegia, spinal abscess, DVT on Warfarin, HTN presents to the [facility] with right hip wound/ - Afebrile, VSS - Continue Santyl - Air mattress - Turn Q2 - May need debridement/wound vac - Will discuss plan with Dr. Azar Bruce PGY-3
--- NOTE | 2017-04-21 23:43 | CP.PCM.HP ---
<Telly Cowart - Last Filed: 04/22/17 00:56> History of Present Illness - History of Present Illness History of Present Illness: Chief Complaint: Malodorous discharge from right superior gluteal wound HPI: Patient is a 51 year old male with a history of paraplegia s/p spinal abscess, laminectomy, DVT in right lower extremity treated with warfarin in 2016 who presents to [facility] with complaints of malodorous discharge from right superior gluteal wound for the past week. Patient states his wound care is provided by his brother on a daily basis. States he was prompted to come to the ED due to the wound have continuous malodorous discharge that would not resolve. Patient admits to cough which has been going on for a few days. Patient denies pain at wound site, also denies fevers, chills, nausea, vomiting , shortness of breath. Primary Medical Doctor: Dr. Ishan Dominguez Past Medical History: paraplegic, spinal abcess, laminectomy, DVT Past Surgical History: laminectomy T4-T7 in July 2016 Allergies: ceftriaxone, cephalosporins Family History: non contributory Social History: denies to current tobacco use within the past year however has a past history of smoking 1 ppd for 20 years. Also denies alcohol or illicit drug use. Medications: Baclofen, Neurontin 300, Coumadin 4mg Present on Admission - Present on Admission Any Indicators Present on Admission: No Review of Systems - Review of Systems Systems not reviewed;Unavailable: Acuity of Condition - Constitutional Constitutional: absent: Chills, Fever, Headache - EENT Eyes: absent: Blurred Vision, Change in Vision - Cardiovascular Cardiovascular: absent: Chest Pain, Dyspnea - Respiratory Respiratory: Cough, Chest Congestion. absent: Dyspnea, Dyspnea on Exertion - Gastrointestinal Gastrointestinal: absent: Abdominal Pain, Diarrhea, Nausea, Vomiting - Neurological Neurological: absent: Dizziness, Numbness - Psychiatric Psychiatric: absent: Anhedonia, Anxiety Past Patient History - Infectious Disease Hx of Infectious Diseases: None - Past Social History Smoking Status: Former Smoker - CARDIAC Hx Cardiac Disorders: No - PULMONARY Hx Respiratory Disorders: No - NEUROLOGICAL Other/Comment: paraplegic - HEENT Hx HEENT Problems: No - RENAL Hx Chronic Kidney Disease: No - ENDOCRINE/METABOLIC Hx Endocrine Disorders: No - HEMATOLOGICAL/ONCOLOGICAL Hx Blood Transfusions: Yes - INTEGUMENTARY Hx Dermatological Problems: No - MUSCULOSKELETAL/RHEUMATOLOGICAL Hx Musculoskeletal Disorders: Yes Hx Falls: No Other/Comment: paraplegic - GASTROINTESTINAL Hx Gastrointestinal Disorders: Yes Hx Colostomy: Yes - GENITOURINARY/GYNECOLOGICAL Hx Genitourinary Disorders: Yes Hx Incontinence: Yes Other/Comment: has haque bag and diaper - PSYCHIATRIC Hx Psychophysiologic Disorder: No Hx Substance Use: No - SURGICAL HISTORY Other/Comment: colostomy bag - ANESTHESIA Hx Anesthesia Reactions: No Hx Malignant Hyperthermia: No Meds Allergies/Adverse Reactions: Allergies Allergy/AdvReac Type Severity Reaction Status Date / Time ceftriaxone [From Rocephin] Allergy RASH Verified 04/21/17 19:23 Cephalosporins Allergy RASH Verified 04/21/17 19:23 Physical Exam - Constitutional Appears: Non-toxic - Head Exam Head Exam: ATRAUMATIC, NORMAL INSPECTION, NORMOCEPHALIC - Eye Exam Eye Exam: EOMI, Normal appearance Pupil Exam: PERRL - ENT Exam ENT Exam: Mucous Membranes Moist - Respiratory Exam Respiratory Exam: Rhonchi (Left upper and lower lobe), NORMAL BREATHING PATTERN. absent: Clear to Auscultation Bilateral, Wheezes - Cardiovascular Exam Cardiovascular Exam: REGULAR RHYTHM, +S1, +S2 - GI/Abdominal Exam GI & Abdominal Exam: Normal Bowel Sounds, Soft - Extremities Exam Extremities exam: Positive for: pedal edema (left), pedal pulses present ( bilaterally 2/4) - Expanded Lower Extremities Exam Left Foot/Toe exam: absent: normal inspection (healed wound 3x5 cm on left foot, lateral heal) - Back Exam Back exam: absent: NORMAL INSPECTION Additional comments: laminectomy scar T4-T7 - Neurological Exam Neurological exam: Alert, CN II-XII Intact, Oriented x3 - Skin Additional comments: Sacral decubitus ulcer- healing Right superior gluteal ulcer with Stage IV, 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 Malodorous with purulent brown drainage. Results - Vital Signs Recent Vital Signs: Last Vital Signs Temp 97.6 F 04/21/17 19:15 Pulse 66 04/21/17 19:15 Resp 18 04/21/17 19:15 BP 121/61 04/21/17 19:15 Pulse Ox 99 04/21/17 19:15 - Labs Result Diagrams: 04/21/17 20:42 04/21/17 20:42 Assessment & Plan - Assessment and Plan (Free Text) Assessment: Patient is a 51 year old male with a history of paraplegia s/p spinal abscess, laminectomy, DVT in right lower extremity treated with warfarin who presents to [facility] on 02/18 with complaints of malodorous discharge from right superior gluteal wound for the past week. Plan: Right Superior Gluteal wound -General Surgery consulted; recommends possible debridement and continue with santyl dressings -Infectious disease consulted; Merrem and Vanc regimen started as in previous admission. Recommendations appreciated -Blood and wound cultures ordered; results pending -CBC, CMP, Procacalcitnon, VBG ordered; follow up with results -Sacral and Pelvic X-ray -Regular diet ordered Left foot wound -Podiatry consulted -wound care consulted -Fasting lipid panel ordered; results pending H/O DVT -Continue warfarin pending INR -INR ordered Neuropathy -Continue baclofen and neurontin -No further intervention at this time DVT/GI prophylaxis: Coumadin and SCDs/Protonix <Ashley Hernandez - Last Filed: 04/22/17 04:12> Results - Vital Signs Recent Vital Signs: Last Vital Signs Temp 97.6 F 04/21/17 19:15 Pulse 66 04/21/17 19:15 Resp 18 04/21/17 19:15 BP 121/61 04/21/17 19:15 Pulse Ox 99 04/21/17 19:15 - Labs Result Diagrams: 04/21/17 20:42 04/21/17 20:42 Labs: Laboratory Results - last 24 hr 04/22/17 00:54 pO2 83 H VBG pH 7.40 VBG pCO2 46.0 VBG HCO3 28.5 H VBG Total CO2 29.9 H VBG O2 Sat (Calc) 98.4 H VBG Base Excess 3.0 H VBG Potassium 3.7 Sodium 141.0 Chloride 104.0 Glucose 83 Lactate 1.5 FiO2 21.0 Venous Blood Potassium 3.7 Attending/Attestation - Attestation I have personally seen and examined this patient.: Yes I have fully participated in the care of the patient.: Yes I have reviewed all pertinent clinical information: Yes Notes (Text): 04/22/17 03:59 Patient seen with the medical office assistant. Addendum: HPI;pt has a cough,denies any c/o chest pain or sputum production. Surgical history:In addition to laminectomy,he had Colostomy and Wound debridement. Physical exam:Lungs: rhonchi heard on auscultation of the L lower lung field. Abdomen:Colostomy bag is in place. Neuro:Patient has paraplegia. Agree with orders placed.
[2017-04-22] MEDS ORDERED: Vancomycin 1gm in NS 250ml 1 GM/250 ML BAG IVPB SCH (01:00)
[2017-04-22 01:29] LABS: VENOUS BLOOD GAS PO2 83 mm/Hg (30-55)
[2017-04-22 05:26] LABS: BASO # 0.01 K/mm3 (0.0-2.0); BASO % 0.1 % (0.0-3.0); EOS # 0.2 (0.0-0.7); EOS % 2.8 % (1.5-5.0); GRAN # 4.2 (1.4-6.5); GRAN % 63.1 % (50.0-68.0); HEMOGLOBIN 10.3 g/dL (14.0-18.0); LYMPH # 1.7 (1.2-3.4); MEAN CORPUSCULAR HEMOGLOBIN 25.7 pg (25.0-35.0); MEAN CORPUSCULAR HGB CONC 32.1 g/dl (31.0-37.0); MEAN PLATELET VOLUME 10.9 fl (7.0-11.0); MONO # 0.6 (0.1-0.6); RBC 4.01 10^6/uL (3.5-6.1); RED CELL DISTRIBUTION WIDTH 15.6 % (11.5-14.5); WHITE BLOOD COUNT 6.7 10^3/ul (4.5-11.0)
[2017-04-22 05:41] LABS: ALB/GLOB RATIO 0.9 (1.1-1.8); ALBUMIN 3.5 g/dL (3.0-4.8); ALT/SGPT 28 U/L (7-56); AST/SGOT 17 U/L (17-59); BLOOD UREA NITROGEN 23 mg/dL (7-21); CALCIUM 9.6 mg/dL (8.4-10.5); GFR AFRICAN-AMERICAN > 60; GFR NON-AFRICAN AMERICAN > 60; HDL CHOLESTEROL 31 mg/dL (29-60)
[2017-04-22 05:44] LABS: INR 1.14 (0.93-1.08); PARTIAL THROMBOPLASTIN TIME 28.8 Seconds (25.1-36.5); PROTHROMBIN TIME 13.2 SECONDS (9.4-12.5)
[2017-04-22 05:47] LABS: LDL CHOLESTEROL 102 mg/dL (0-129)
[2017-04-22] MEDS: Meropenem 500 MG in Sodium Chloride 0.9% 100 ML IVPB SCH ×2 (06:14→13:09)
[2017-04-22] MEDS: Sodium Chloride 0.9% 1,000 ML IV SCH ×2 (06:31→23:13)
[2017-04-22] MEDS: Vancomycin 1gm in NS 250ml 1 GM/250 ML BAG IVPB SCH ×2 (09:52→22:03)
[2017-04-22] MEDS ORDERED: Collagenase 250 Units/gm Ointment(30 gm) TOP SCH (10:00)
--- NOTE | 2017-04-22 10:37 | RAD ---
HISTORY: cough, rhonchi on phys exam COMPARISON: Comparison chest 01/27/2017 FINDINGS: LUNGS: Minimal left basilar atelectasis PLEURA: No significant pleural effusion identified, no pneumothorax apparent. CARDIOVASCULAR: Heart size upper limits of normal OSSEOUS STRUCTURES: Mild degenerative changes left acromioclavicular joint VISUALIZED UPPER ABDOMEN: Normal. OTHER FINDINGS: None. IMPRESSION: Minimal left basilar atelectasis
--- NOTE | 2017-04-22 11:21 | RAD ---
PROCEDURE: Radiographs of the pelvis. . HISTORY: Nonhealing wound COMPARISON: Comparison made with radiographs of the pelvis 07/24/[address] scan of the abdomen and pelvis dated 01/28/2017. FINDINGS: BONES: No evidence of acute fractures displaced fracture nor dislocation. The osseous structures appear intact JOINTS: Minimal degenerative osteoarthritis both hip joints. . Heterotopic bone changes noted about both hip joints left more exuberant than the right. Degenerative spondylosis lumbosacral spine. No obvious subcutaneous emphysema. . OTHER FINDINGS: Previously noted sacral/coccygeal decubitus ulcer seen to better advantage on prior CT scan is not appreciated IMPRESSION: No acute displaced fracture nor dislocation. Minimal degenerative osteoarthritis both hip joints with heterotopic bone changes left greater than right. Previously noted sacral/coccygeal decubitus ulcer seen better advantage on prior CT scan is not appreciated on this exam.
--- NOTE | 2017-04-22 11:23 | RAD ---
PROCEDURE: Radiographs of the Sacrum and Coccyx HISTORY: wound COMPARISON: None available. TECHNIQUE: Frontal and lateral views of the sacrum and coccyx FINDINGS: BONES: No obvious acute displaced fracture nor dislocation. Previously noted sacral/coccygeal decubitus ulcer seen better advantage on prior CT scan is not appreciated on this exam. SACROILIAC JOINTS: Unremarkable. OTHER FINDINGS: Minor degenerative changes both hip joints with surrounding heterotopic bone changes left more exuberant than the right IMPRESSION: Minor degenerative changes both hip joints with surrounding heterotopic bone changes left more exuberant than the right Previously noted sacral/coccygeal decubitus ulcer seen better advantage on prior CT scan is not appreciated on this exam.
--- NOTE | 2017-04-22 12:22 | CP.PCM.PN ---
Subjective - Date & Time of Evaluation Date of Evaluation: 04/22/17 Time of Evaluation: 12:21 - Subjective Subjective: GENERAL SURGERY CONSULT PROGRESS NOTE FOR DR. BUNN Patient has been seen and examined at bedside in the ED. Still complains of the malodorous discharge from his gluteal ulcer. Objective - Vital Signs/Intake and Output Vital Signs (last 24 hours): Temp Pulse Resp BP Pulse Ox 97.6 F 66 18 113/59 L 99 04/21/17 19:15 04/22/17 11:00 04/21/17 19:15 04/22/17 11:00 04/21/17 19:15 - Medications Medications: Current Medications Acetaminophen (Tylenol 325mg Tab) 650 mg PO Q4 PRN PRN Reason: Fever >100.4 F Ascorbic Acid (Vitamin C 500 Mg Tab) 500 mg PO DAILY DONAL Baclofen (Lioresal) 20 mg PO BID DONAL Collagenase (Santyl) 1 gm TOP DAILY DONAL Diphenhydramine HCl (Benadryl) 25 mg PO Q6 PRN PRN Reason: Itching / Pruritus Gabapentin (Neurontin) 300 mg PO BID DONAL PRN Reason: Protocol Heparin Sodium (Porcine) (Heparin) 5,000 units SC Q12 DONAL PRN Reason: Protocol Meropenem 500 mg/ Sodium (Chloride) 100 mls @ 100 mls/hr IVPB Q8 DONAL PRN Reason: Protocol Stop: 04/22/17 14:59 Last Admin: 04/22/17 06:14 Dose: 100 mls/hr Vancomycin HCl (Vancomycin 1gm) 1 gm in 250 mls @ 167 mls/hr IVPB Q12 DONAL PRN Reason: Protocol Last Admin: 04/22/17 09:52 Dose: 167 mls/hr Sodium Chloride (Sodium Chloride 0.9%) 1,000 mls @ 100 mls/hr IV .Q10H DONAL Last Admin: 04/22/17 06:31 Dose: 100 mls/hr Ibuprofen (Motrin Tab) 400 mg PO Q6H PRN PRN Reason: Pain, Mild (1-3) Multivitamins/Minerals (Therapeutic-M Tab) 1 tab PO 0800 DONAL Pantoprazole Sodium (Protonix Inj) 40 mg IVP DAILY DONAL Zinc Sulfate (Zinc Sulfate 220 Mg Cap) 220 mg PO DAILY DONAL - Labs Labs: 04/22/17 05:00 04/22/17 05:00 PT 13.2 SECONDS (9.4-12.5) H 04/22/17 05:00 INR 1.14 (0.93-1.08) H 04/22/17 05:00 APTT 28.8 Seconds (25.1-36.5) 04/22/17 05:00 - Additional Findings Additional findings: - Constitutional Appears: Non-toxic - Head Exam Head Exam: ATRAUMATIC, NORMAL INSPECTION, NORMOCEPHALIC - Eye Exam Eye Exam: EOMI, Normal appearance Pupil Exam: PERRL - ENT Exam ENT Exam: Mucous Membranes Moist - Respiratory Exam Respiratory Exam: NORMAL BREATHING PATTERN. absent: Accessory Muscle Use, Respiratory Distress - Cardiovascular Exam Cardiovascular Exam: REGULAR RHYTHM, +S1, +S2 - Extremities Exam Extremities exam: Positive for: pedal edema (left), pedal pulses present ( bilaterally 2/4) - Expanded Lower Extremities Exam Left Foot/Toe exam: absent: normal inspection (healed wound 3x5 cm on left foot, lateral heal) - Back Exam Back exam: absent: NORMAL INSPECTION Additional comments: laminectomy scar T4-T7 - Neurological Exam Neurological exam: Alert, CN II-XII Intact, Oriented x3 - Skin Additional comments: Sacral decubitus ulcer- healing Right superior gluteal ulcer with Stage IV, 4x5 cm. Malodorous with purulent brown drainage. Assessment and Plan - Assessment and Plan (Free Text) Assessment: 52 year old male with a history of paraplegia s/p spinal abscess, laminectomy, DVT in right lower extremity treated with warfarin who presented to [facility] ED on . Surgery consulted for evaluation and treatment of right hip wound, healing sacral ulcer and left heel pressure ulcer. Plan: Healing SacralUlcer -Optifoam Dressing -Air Mattress -Turn Q2H Stage III Right Superior Gluteal Ulcer -Air Mattress -Bedside debridement/wound vac -Santyl -Optifoam Dressing -Turn Q2H Left foot wound -Santyl -Optifoam Dressing Dispo: Patient is afebrile. Vital signs are stable. Further Recs as per Dr. Bunn. Ana Lilia Johnson - PGY1
--- NOTE | 2017-04-22 14:39 | CP.PCM.CON ---
<Xiomara Canales - Last Filed: 04/22/17 14:46> History of Present Illness - History of Present Illness History of Present Illness: 52 y/o male known to Dr. Jalloh's service seen in ED for left heel ulceration secondary to bed bound status. Pt is resting comfortably at time of visit in NAD. Denies any pain to the left heel. States he was having wound care performed at the skilled nursing after his last hospital discharge in January, and since then has not had any treatment for the heel. Admits to wearing offloading boots at home. States his brother provides daily wound care for his sacral wounds but he has not noticed any openings in the feet. At present, pt denies F/C/N/V/CP/SOB. He states he came into the hospital because his brother noted a foul odor coming from his sacral wound during a dressing change at home. Review of Systems - Review of Systems All systems: reviewed and no additional remarkable complaints except (per HPI) Past Patient History - Infectious Disease Hx of Infectious Diseases: None - Past Social History Smoking Status: Former Smoker - CARDIAC Hx Cardiac Disorders: No - PULMONARY Hx Respiratory Disorders: No - NEUROLOGICAL Other/Comment: paraplegic - HEENT Hx HEENT Problems: No - RENAL Hx Chronic Kidney Disease: No - ENDOCRINE/METABOLIC Hx Endocrine Disorders: No - HEMATOLOGICAL/ONCOLOGICAL Hx Blood Transfusions: Yes - INTEGUMENTARY Hx Dermatological Problems: No - MUSCULOSKELETAL/RHEUMATOLOGICAL Hx Musculoskeletal Disorders: Yes Hx Falls: No Other/Comment: paraplegic - GASTROINTESTINAL Hx Gastrointestinal Disorders: Yes Hx Colostomy: Yes - GENITOURINARY/GYNECOLOGICAL Hx Genitourinary Disorders: Yes Hx Incontinence: Yes Other/Comment: has haque bag and diaper - PSYCHIATRIC Hx Psychophysiologic Disorder: No Hx Substance Use: No - SURGICAL HISTORY Other/Comment: colostomy bag - ANESTHESIA Hx Anesthesia Reactions: No Hx Malignant Hyperthermia: No Meds Allergies/Adverse Reactions: Allergies Allergy/AdvReac Type Severity Reaction Status Date / Time ceftriaxone [From Rocephin] Allergy RASH Verified 04/22/17 12:08 Cephalosporins Allergy RASH Verified 04/22/17 12:08 - Medications Medications: Current Medications Acetaminophen (Tylenol 325mg Tab) 650 mg PO Q4 PRN PRN Reason: Fever >100.4 F Ascorbic Acid (Vitamin C 500 Mg Tab) 500 mg PO DAILY [facility]AL Last Admin: 04/22/17 14:03 Dose: 500 mg Baclofen (Lioresal) 20 mg PO BID REPLACED BY [facility] Last Admin: 04/22/17 11:00 Dose: 20 mg Collagenase (Santyl) 1 gm TOP DAILY REPLACED BY [facility] Last Admin: 04/22/17 13:09 Dose: 1 applic Diphenhydramine HCl (Benadryl) 25 mg PO Q6 PRN PRN Reason: Itching / Pruritus Last Admin: 04/22/17 12:29 Dose: 25 mg Gabapentin (Neurontin) 300 mg PO BID DONAL PRN Reason: Protocol Last Admin: 04/22/17 11:00 Dose: 300 mg Heparin Sodium (Porcine) (Heparin) 5,000 units SC Q12 [facility]AL PRN Reason: Protocol Meropenem 500 mg/ Sodium (Chloride) 100 mls @ 100 mls/hr IVPB Q8 DONAL PRN Reason: Protocol Stop: 04/22/17 14:59 Last Admin: 04/22/17 13:09 Dose: 100 mls/hr Vancomycin HCl (Vancomycin 1gm) 1 gm in 250 mls @ 167 mls/hr IVPB Q12 DONAL PRN Reason: Protocol Last Admin: 04/22/17 09:52 Dose: 167 mls/hr Sodium Chloride (Sodium Chloride 0.9%) 1,000 mls @ 100 mls/hr IV .Q10H REPLACED BY [facility] Last Admin: 04/22/17 06:31 Dose: 100 mls/hr Ibuprofen (Motrin Tab) 400 mg PO Q6H PRN PRN Reason: Pain, Mild (1-3) Multivitamins/Minerals (Therapeutic-M Tab) 1 tab PO 0800 REPLACED BY [facility] Pantoprazole Sodium (Protonix Inj) 40 mg IVP DAILY REPLACED BY [facility] Last Admin: 04/22/17 11:00 Dose: 40 mg Zinc Sulfate (Zinc Sulfate 220 Mg Cap) 220 mg PO DAILY REPLACED BY [facility] Last Admin: 04/22/17 14:03 Dose: 220 mg Physical Exam - Constitutional Appears: Well, Non-toxic, No Acute Distress - Extremities Exam Additional comments: Lower extremity focused examination: Small amount of serosanguinous strikethrough noted to inner aspect of L heel dressing. Vasc: DP/PT pulses palpable 2/4 B/L. Temperature gradient warm to warm B/L. CFT < 3 sec to all digits. Minimal non-pitting edema localized to L heel. Neuro: Protective sensation grossly diminished B/L Derm: L posterolateral heel exhibits 2.7cm x 1.9cm x 0.2cm ulceration with mixed fibrotic and necrotic base. Wound borders exhibit hyperkeratotic tissue. No jose manuel wound erythema, no drainage, no malodor, no probe to bone, no fluctuance. Ortho: Involuntary muscle spasms noted to B/L LE, L>R. No tenderness to palpation of L heel at site of pressure ulcerations. Mild tenderness upon elevation of L leg. - Neurological Exam Neurological exam: Alert, Oriented x3 - Psychiatric Exam Psychiatric exam: Normal Affect, Normal Mood Results - Vital Signs Recent Vital Signs: Last Vital Signs Temp 97.6 F 04/21/17 19:15 Pulse 67 04/22/17 13:05 Resp 18 04/22/17 13:05 BP 125/67 04/22/17 13:05 Pulse Ox 100 04/22/17 13:05 - Labs Result Diagrams: 04/22/17 05:00 04/22/17 05:00 Labs: Laboratory Results - last 24 hr 04/22/17 04/22/17 04/22/17 00:54 05:00 05:00 WBC RBC Hgb Hct MCV MCH MCHC RDW Plt Count MPV Gran % Lymph % (Auto) Gray % (Auto) Eos % (Auto) Baso % (Auto) Gran # Lymph # Gray # Eos # Baso # PT 13.2 H INR 1.14 H APTT 28.8 pO2 83 H VBG pH 7.40 VBG pCO2 46.0 VBG HCO3 28.5 H VBG Total CO2 29.9 H VBG O2 Sat (Calc) 98.4 H VBG Base Excess 3.0 H VBG Potassium 3.7 Sodium 141.0 Chloride 104.0 Glucose 83 Lactate 1.5 FiO2 21.0 Potassium Carbon Dioxide Anion Gap BUN Creatinine Est GFR ( Amer) Est GFR (Non-Af Amer) Random Glucose Calcium Total Bilirubin AST ALT Alkaline Phosphatase Total Protein Albumin Globulin Albumin/Globulin Ratio Triglycerides Cholesterol LDL Cholesterol Direct HDL Cholesterol Procalcitonin < 0.05 L Venous Blood Potassium 3.7 04/22/17 04/22/17 05:00 05:00 WBC 6.7 RBC 4.01 Hgb 10.3 L Hct 32.1 L MCV 80.0 MCH 25.7 MCHC 32.1 RDW 15.6 H Plt Count 181 MPV 10.9 Gran % 63.1 Lymph % (Auto) 25.0 Gray % (Auto) 9.0 H Eos % (Auto) 2.8 Baso % (Auto) 0.1 Gran # 4.20 Lymph # 1.7 Gray # 0.6 Eos # 0.2 Baso # 0.01 PT INR APTT pO2 VBG pH VBG pCO2 VBG HCO3 VBG Total CO2 VBG O2 Sat (Calc) VBG Base Excess VBG Potassium Sodium 140 Chloride 103 Glucose Lactate FiO2 Potassium 3.5 L Carbon Dioxide 26 Anion Gap 14 BUN 23 H Creatinine 0.8 Est GFR ( Amer) > 60 Est GFR (Non-Af Amer) > 60 Random Glucose 95 Calcium 9.6 Total Bilirubin 0.4 AST 17 ALT 28 Alkaline Phosphatase 71 Total Protein 7.2 Albumin 3.5 Globulin 3.7 Albumin/Globulin Ratio 0.9 L Triglycerides 97 Cholesterol 166 LDL Cholesterol Direct 102 HDL Cholesterol 31 Procalcitonin Venous Blood Potassium Assessment & Plan - Assessment and Plan (Free Text) Assessment: 52 y/o male with left heel ulceration secondary to paraplegia with bed bound status Plan: Pt seen and evaluated in ED Discussed with attending Dr. Jalloh Labs and vitals reviewed- afebrile, WBC 6.7 Wound to left heel cleansed with betadine and dressed with bacitracin and DSD Will consider debridement of necrotic tissue at bedside tomorrow to examine underlying wound bed Wound does not appear clinically infected at this time Podiatry will continue to follow while in house <Patricia Jalloh - Last Filed: 04/26/17 16:13> Meds - Medications Medications: Current Medications Acetaminophen (Tylenol 325mg Tab) 650 mg PO Q4 PRN PRN Reason: Fever >100.4 F Last Admin: 04/24/17 11:59 Dose: 650 mg Ascorbic Acid (Vitamin C 500 Mg Tab) 500 mg PO DAILY REPLACED BY [facility] Last Admin: 04/26/17 11:41 Dose: 500 mg Baclofen (Lioresal) 20 mg PO BID REPLACED BY [facility] Last Admin: 04/26/17 11:41 Dose: 20 mg Collagenase (Santyl) 0 gm TOP DAILY REPLACED BY [facility] Last Admin: 04/26/17 11:31 Dose: 1 oin Diphenhydramine HCl (Benadryl) 25 mg PO Q6 PRN PRN Reason: Itching / Pruritus Last Admin: 04/22/17 12:29 Dose: 25 mg Enoxaparin Sodium (Lovenox) 100 mg SC Q12H [facility] PRN Reason: Protocol Last Admin: 04/26/17 11:41 Dose: 100 mg Gabapentin (Neurontin) 300 mg PO BID [facility]AL PRN Reason: Protocol Last Admin: 04/26/17 11:41 Dose: 300 mg Vancomycin HCl (Vancomycin 1gm) 1 gm in 250 mls @ 167 mls/hr IVPB Q12 [facility] PRN Reason: Protocol Last Admin: 04/26/17 11:42 Dose: 167 mls/hr Sodium Chloride (Sodium Chloride 0.9%) 1,000 mls @ 100 mls/hr IV .Q10H REPLACED BY [facility] Last Admin: 04/25/17 23:11 Dose: 100 mls/hr Meropenem (Merrem Iv 1 Gm Premix) 50 mls @ 100 mls/hr IVPB Q8 DONAL PRN Reason: Protocol Stop: 05/01/17 22:01 Last Admin: 04/26/17 13:56 Dose: 100 mls/hr Ibuprofen (Motrin Tab) 400 mg PO Q6H PRN PRN Reason: Pain, Mild (1-3) Multivitamins/Minerals (Therapeutic-M Tab) 1 tab PO 0800 REPLACED BY [facility] Last Admin: 04/26/17 08:43 Dose: 1 tab Pantoprazole Sodium (Protonix Ec Tab) 40 mg PO ACB REPLACED BY [facility] Last Admin: 04/26/17 08:43 Dose: 40 mg Warfarin Sodium (Coumadin) 10 mg PO 1200 [facility] PRN Reason: Protocol Last Admin: 04/26/17 11:41 Dose: 10 mg Zinc Sulfate (Zinc Sulfate 220 Mg Cap) 220 mg PO DAILY REPLACED BY [facility] Last Admin: 04/26/17 11:40 Dose: 220 mg Results - Vital Signs Recent Vital Signs: Last Vital Signs Temp 98 F 04/26/17 08:00 Pulse 51 L 04/26/17 08:00 Resp 20 04/26/17 08:00 BP 107/71 04/26/17 08:00 Pulse Ox 96 04/26/17 06:00 - Labs Result Diagrams: 04/26/17 06:25 04/26/17 06:25 Labs: Laboratory Results - last 24 hr 04/26/17 04/26/17 04/26/17 06:25 06:25 06:25 WBC 4.8 D RBC 4.10 Hgb 10.3 L Hct 33.6 L MCV 82.0 MCH 25.1 MCHC 30.7 L RDW 15.4 H Plt Count 187 MPV 11.9 H Gran % 56.0 Lymph % (Auto) 30.7 Gray % (Auto) 10.4 H Eos % (Auto) 2.7 Baso % (Auto) 0.2 Gran # 2.70 Lymph # 1.5 Gray # 0.5 Eos # 0.1 Baso # 0.01 PT 13.3 H INR 1.15 H APTT 35.1 Sodium 141 Potassium 3.9 Chloride 105 Carbon Dioxide 26 Anion Gap 13 BUN 12 Creatinine 0.7 L Est GFR ( Amer) > 60 Est GFR (Non-Af Amer) > 60 Random Glucose 88 Calcium 9.6 Total Bilirubin 0.2 AST 31 ALT 42 Alkaline Phosphatase 68 Total Protein 6.7 Albumin 3.3 Globulin 3.4 Albumin/Globulin Ratio 1.0 L
--- NOTE | 2017-04-22 15:55 | CARD ---
APPROVED REPORT EKG Measurement Heart [id number] <Conclusion> Sinus rhythm with premature atrial complexes Nonspecific ST abnormality Abnormal ECG
[2017-04-22] MEDS ORDERED: Influenza Vaccine 60 mcg/0.5 mL SYR (4YR UP) IM ONE (16:05)
[2017-04-22] MEDS ORDERED: Pneumococcal 23-Valent Vaccine IM ONE (16:05)
[2017-04-22] MEDS: Meropenem IV 1 gm in NS 50 ML IVPB SCH (21:20)
[2017-04-23] MEDS: Sodium Chloride 0.9% 1,000 ML IV SCH ×2 (02:15→22:20)
[2017-04-23] MEDS: Meropenem IV 1 gm in NS 50 ML IVPB SCH ×3 (06:05→21:41)
[2017-04-23 06:27] LABS: BASO # 0.02 K/mm3 (0.0-2.0); BASO % 0.5 % (0.0-3.0); EOS # 0.1 (0.0-0.7); EOS % 3.3 % (1.5-5.0); GRAN # 2.88 (1.4-6.5); GRAN % 68.2 % (50.0-68.0); HEMOGLOBIN 9.9 g/dL (14.0-18.0); LYMPH # 0.8 (1.2-3.4); LYMPH % 19.7 % (22.0-35.0); MEAN CELL VOLUME 82.6 fl (80.0-105.0); MEAN CORPUSCULAR HEMOGLOBIN 25.4 pg (25.0-35.0); MEAN CORPUSCULAR HGB CONC 30.7 g/dl (31.0-37.0); MEAN PLATELET VOLUME 11.3 fl (7.0-11.0); MONO # 0.4 (0.1-0.6); MONO % 8.3 % (1.0-6.0); RBC 3.9 10^6/uL (3.5-6.1); RED CELL DISTRIBUTION WIDTH 15.7 % (11.5-14.5); WHITE BLOOD COUNT 4.2 10^3/ul (4.5-11.0)
[2017-04-23 07:02] LABS: ALBUMIN 3.2 g/dL (3.0-4.8); ALT/SGPT 25 U/L (7-56); AST/SGOT 15 U/L (17-59); BLOOD UREA NITROGEN 13 mg/dL (7-21); CALCIUM 9.5 mg/dL (8.4-10.5); GFR AFRICAN-AMERICAN > 60; GFR NON-AFRICAN AMERICAN > 60
--- NOTE | 2017-04-23 09:03 | CP.PCM.PN ---
<EmilianoPaul - Last Filed: 04/23/17 11:42> Subjective - Date & Time of Evaluation Date of Evaluation: 04/23/17 Time of Evaluation: 07:02 - Subjective Subjective: Paul Cummings PGY1 IM Progress Note Patient was seen and examined at bedside. He denies any acute overnight events and any discomfort. He is updated on his condition and about the plan moving forward. he denies fevers/chills, n/v/d, chest pain, Objective - Vital Signs/Intake and Output Vital Signs (last 24 hours): Temp Pulse Resp BP Pulse Ox 98.8 F 60 18 105/50 L 96 04/23/17 06:00 04/23/17 06:00 04/23/17 06:00 04/23/17 06:00 04/23/17 06:00 Intake and Output: 04/23/17 04/23/17 06:59 18:59 Intake Total 1500 Output Total 1700 Balance -200 - Medications Medications: Current Medications Acetaminophen (Tylenol 325mg Tab) 650 mg PO Q4 PRN PRN Reason: Fever >100.4 F Ascorbic Acid (Vitamin C 500 Mg Tab) 500 mg PO DAILY [facility] Last Admin: 04/22/17 14:03 Dose: 500 mg Baclofen (Lioresal) 20 mg PO BID [facility] Last Admin: 04/22/17 17:43 Dose: 20 mg Collagenase (Santyl) 1 gm TOP DAILY [facility] Last Admin: 04/22/17 13:09 Dose: 1 applic Diphenhydramine HCl (Benadryl) 25 mg PO Q6 PRN PRN Reason: Itching / Pruritus Last Admin: 04/22/17 12:29 Dose: 25 mg Gabapentin (Neurontin) 300 mg PO BID [facility] PRN Reason: Protocol Last Admin: 04/22/17 17:43 Dose: 300 mg Heparin Sodium (Porcine) (Heparin) 5,000 units SC Q12 DONAL PRN Reason: Protocol Last Admin: 04/22/17 23:02 Dose: 5,000 units Vancomycin HCl (Vancomycin 1gm) 1 gm in 250 mls @ 167 mls/hr IVPB Q12 DONAL PRN Reason: Protocol Last Admin: 04/22/17 22:03 Dose: 167 mls/hr Sodium Chloride (Sodium Chloride 0.9%) 1,000 mls @ 100 mls/hr IV .Q10H [facility] Last Admin: 04/23/17 02:15 Dose: Not Given Meropenem (Merrem Iv 1 Gm Premix) 50 mls @ 100 mls/hr IVPB Q8 DONAL PRN Reason: Protocol Stop: 05/01/17 22:01 Last Admin: 04/23/17 06:05 Dose: 100 mls/hr Ibuprofen (Motrin Tab) 400 mg PO Q6H PRN PRN Reason: Pain, Mild (1-3) Multivitamins/Minerals (Therapeutic-M Tab) 1 tab PO 0800 [facility] Pantoprazole Sodium (Protonix Inj) 40 mg IVP DAILY [facility] Last Admin: 04/22/17 11:00 Dose: 40 mg Zinc Sulfate (Zinc Sulfate 220 Mg Cap) 220 mg PO DAILY [facility] Last Admin: 04/22/17 14:03 Dose: 220 mg - Labs Labs: 04/23/17 05:10 04/23/17 05:10 PT 13.2 SECONDS (9.4-12.5) H 04/22/17 05:00 INR 1.14 (0.93-1.08) H 04/22/17 05:00 APTT 28.8 Seconds (25.1-36.5) 04/22/17 05:00 - Constitutional Appears: Well, Non-toxic, No Acute Distress - Head Exam Head Exam: NORMAL INSPECTION - Eye Exam Eye Exam: EOMI, Normal appearance - ENT Exam ENT Exam: Mucous Membranes Dry - Neck Exam Neck Exam: Normal Inspection - Respiratory Exam Respiratory Exam: Clear to Ausculation Bilateral, NORMAL BREATHING PATTERN. absent: Rales, Rhonchi, Wheezes - Cardiovascular Exam Cardiovascular Exam: RRR, +S1, +S2 - GI/Abdominal Exam GI & Abdominal Exam: Soft, Normal Bowel Sounds. absent: Distended, Tenderness Additional comments: colostomy bag in place brown stools noted with no blood - Extremities Exam Extremities Exam: absent: Full ROM (paraplegic; rigidity noted) Additional comments: L heel pressure ulcer - Back Exam Additional comments: areas of ulceration dressed (clean/dry/intact) - Neurological Exam Neurological Exam: Alert, Awake, Oriented x3 Neuro motor strength exam: Left Upper Extremity: 5, Right Upper Extremity: 5, Left Lower Extremity: 2/1, Right Lower Extremity: 2/1 - Psychiatric Exam Psychiatric exam: Normal Affect, Normal Mood - Skin Skin Exam: Normal Color, Warm Additional comments: noted as above Assessment and Plan - Assessment and Plan (Free Text) Assessment: 52 year old male with a history of paraplegia s/p spinal abscess, laminectomy, DVT in right lower extremity on Warfarin who presented with complaints of malodorous discharge and ulceration from right superior gluteal wound x1 week and heel ulcer. Plan: 1. Right sacral ulcer - General Surgery consulted; recommends bedside debridement w/ wound vac and continue with santyl dressings - Infectious disease consulted - cont Merrem and Vanc - cont vitamin C, MV, and Zinc - procal is not elevated - Lactate is not significantly elevated - Blood and wound cultures ordered; results pending - patient remains afebrile and with no WBC elevation - Sacral and Pelvic X-ray showed no acute displaced fracture nor dislocation. Minimal degenerative osteoarthritis both hip joints with heterotopic bone changes left greater than right. - wound care nurse providing wound care - Regular diet ordered - If no surgical intervention required, will bridge to Coumadin with Lovenox tonight - SW consulted for wound vac 2. Left foot wound - Podiatry consulted - wound care consulted - Fasting lipid panel ordered; results pending 3. Hx DVT - hold warfarin for now until surgery clears - INR subtherapeutic on admission - cont Heparin for DVT ppx 4. Hx Neuropathy - Continue baclofen and neurontin - No further intervention at this time 5. DVT/GI prophylaxis - Protonix for GI PPX - Coumadin and SCDs for DVT PPX Patient was seen, examined and discussed with attending, Dr. Dorothea Cummings PGY1 Pager # [phone] <Tobin Piedra - Last Filed: 04/23/17 17:38> Objective - Vital Signs/Intake and Output Vital Signs (last 24 hours): Temp Pulse Resp BP Pulse Ox 97.9 F 59 L 16 121/79 96 04/23/17 12:00 04/23/17 12:00 04/23/17 12:00 04/23/17 12:00 04/23/17 06:00 Intake and Output: 04/23/17 04/23/17 06:59 18:59 Intake Total 1500 Output Total 1700 Balance -200 - Medications Medications: Current Medications Acetaminophen (Tylenol 325mg Tab) 650 mg PO Q4 PRN PRN Reason: Fever >100.4 F Ascorbic Acid (Vitamin C 500 Mg Tab) 500 mg PO DAILY [facility] Last Admin: 04/23/17 10:07 Dose: 500 mg Baclofen (Lioresal) 20 mg PO BID [facility] Last Admin: 04/23/17 17:04 Dose: 20 mg Collagenase (Santyl) 0 gm TOP DAILY [facility] Diphenhydramine HCl (Benadryl) 25 mg PO Q6 PRN PRN Reason: Itching / Pruritus Last Admin: 04/22/17 12:29 Dose: 25 mg Enoxaparin Sodium (Lovenox) 100 mg SC Q12H [facility] PRN Reason: Protocol Last Admin: 04/23/17 13:47 Dose: 100 mg Gabapentin (Neurontin) 300 mg PO BID [facility] PRN Reason: Protocol Last Admin: 04/23/17 17:04 Dose: 300 mg Vancomycin HCl (Vancomycin 1gm) 1 gm in 250 mls @ 167 mls/hr IVPB Q12 [facility]AL PRN Reason: Protocol Last Admin: 04/23/17 09:45 Dose: 167 mls/hr Sodium Chloride (Sodium Chloride 0.9%) 1,000 mls @ 100 mls/hr IV .Q10H [facility] Last Admin: 04/23/17 02:15 Dose: Not Given Meropenem (Merrem Iv 1 Gm Premix) 50 mls @ 100 mls/hr IVPB Q8 [facility] PRN Reason: Protocol Stop: 05/01/17 22:01 Last Admin: 04/23/17 13:46 Dose: 100 mls/hr Ibuprofen (Motrin Tab) 400 mg PO Q6H PRN PRN Reason: Pain, Mild (1-3) Multivitamins/Minerals (Therapeutic-M Tab) 1 tab PO 0800 [facility] Last Admin: 04/23/17 09:46 Dose: 1 tab Pantoprazole Sodium (Protonix Ec Tab) 40 mg PO ACB DONAL Warfarin Sodium (Coumadin) 5 mg PO 1800 [facility] PRN Reason: Protocol Zinc Sulfate (Zinc Sulfate 220 Mg Cap) 220 mg PO DAILY [facility] Last Admin: 04/23/17 10:07 Dose: 220 mg - Labs Labs: 04/23/17 05:10 04/23/17 05:10 PT 13.2 SECONDS (9.4-12.5) H 04/22/17 05:00 INR 1.14 (0.93-1.08) H 04/22/17 05:00 APTT 28.8 Seconds (25.1-36.5) 04/22/17 05:00 Attending/Attestation - Attestation I have personally seen and examined this patient.: Yes I have fully participated in the care of the patient.: Yes I have reviewed all pertinent clinical information, including history, physical exam and plan: Yes Notes (Text): 04/23/17 17:38 attending note; Patient seen and examined with resident. Patient is a 52-year-old male with a past medical history of spinal abscess/ paraplegia and sacral decubitus ulcer, colostomy, chronic Mackenzie catheter is admitted for sacral decubitus ulcer. X-ray showed degenerative change. Status post debridement by surgery. Wound VAC will be placed today. Started back on Lovenox and Coumadin. PT evaluation requested. will follow-up with surgery for further recommendations. Patient needs long-term wound VAC. Case discussed with case maker for discharge planning. Upon discharge the patient will follow-up with PMD . the patient needs close outpatient wound care follow-up.
--- NOTE | 2017-04-23 09:09 | CON ---
DATE: 04/22/2017 The patient is seen earlier this morning in emergency room. CHIEF COMPLAINT: Breakdown of decubitus ulcer times several days. HISTORY OF PRESENT ILLNESS: This is a 52-year-old male, known to me with previous admission with a history of hypertension, alcohol use, and patient at one admission was admitted with an epidural abscess culture Streptococcus pneumonia and cord compression resulting in paralysis, patient with DVT, hypertension, and neurogenic bladder, now presently he is bedridden. He has developed sacral decubitus ulcer after in the past. No fevers and chills reported. PAST MEDICAL HISTORY: Significant for Streptococcus pneumonia, epidural abscess, cord compression, and DVT, hypertension, paralysis, neurogenic bladder, alcoholism. PAST SURGICAL HISTORY: Significant for colostomy and a laminectomy. ALLERGIES: THE PATIENT IS ALLERGIC TO CEFTRIAXONE AND CEPHALOSPORINS. PHYSICAL EXAMINATION: VITAL SIGNS: The patient's temperature is 97, blood pressure is 112/70, respiratory rate of 18, heart rate of 60. HEENT: Unremarkable. NECK: Supple. LUNGS: Decreased breath sounds. HEART: Normal S1 and S2. ABDOMEN: Soft and nontender LABORATORY DATA: Laboratory examination is noted. White count of 6.7. Chemistries are reviewed. Procalcitonin is low. Microbiology is pending. Blood cultures are reportedly negative. Sacral cultures are pending. ASSESSMENT AND PLAN: This is a 52-year-old male with alcoholism and history of Streptococcus pneumonia, epidural abscess, and cord disease, deep venous thrombosis and paralysis, hypertension, neurogenic bladder, now was found on exam with significant decubitus ulcer with erythema and infected decubitus ulcer. We will treat the patient with Vancomycin and meropenem. Pending culture, local wound. We will follow closely with you. Colt Coronel MD
[2017-04-23] MEDS: Vancomycin 1gm in NS 250ml 1 GM/250 ML BAG IVPB SCH ×2 (09:45→22:33)
[2017-04-23] MEDS: Multivitamin With Minerals Tab PO SCH (09:46)
--- NOTE | 2017-04-23 10:06 | CP.PCM.PN ---
<Xiomara Canales - Last Filed: 04/23/17 10:07> Subjective - Date & Time of Evaluation Date of Evaluation: 04/23/17 Time of Evaluation: 10:05 - Subjective Subjective: 52 y/o male seen at bedside with attending Dr. Jalloh for left heel ulceration. Pt denies any acute events overnight and is feeling generally well. Denies F/C/N/V/CP/SOB. Denies any pedal pain at this time. Multipodus boots not on or present at time of visit. Dressing has remained on since last visit. Objective - Vital Signs/Intake and Output Vital Signs (last 24 hours): Temp Pulse Resp BP Pulse Ox 98.8 F 60 18 105/50 L 96 04/23/17 06:00 04/23/17 06:00 04/23/17 06:00 04/23/17 06:00 04/23/17 06:00 Intake and Output: 04/23/17 04/23/17 06:59 18:59 Intake Total 1500 Output Total 1700 Balance -200 - Medications Medications: Current Medications Acetaminophen (Tylenol 325mg Tab) 650 mg PO Q4 PRN PRN Reason: Fever >100.4 F Ascorbic Acid (Vitamin C 500 Mg Tab) 500 mg PO DAILY [facility] Last Admin: 04/22/17 14:03 Dose: 500 mg Baclofen (Lioresal) 20 mg PO BID [facility] Last Admin: 04/23/17 09:46 Dose: 20 mg Collagenase (Santyl) 1 gm TOP DAILY [facility] Last Admin: 04/22/17 13:09 Dose: 1 applic Diphenhydramine HCl (Benadryl) 25 mg PO Q6 PRN PRN Reason: Itching / Pruritus Last Admin: 04/22/17 12:29 Dose: 25 mg Gabapentin (Neurontin) 300 mg PO BID [facility] PRN Reason: Protocol Last Admin: 04/23/17 09:45 Dose: 300 mg Heparin Sodium (Porcine) (Heparin) 5,000 units SC Q12 [facility] PRN Reason: Protocol Last Admin: 04/23/17 09:45 Dose: 5,000 units Vancomycin HCl (Vancomycin 1gm) 1 gm in 250 mls @ 167 mls/hr IVPB Q12 [facility] PRN Reason: Protocol Last Admin: 04/23/17 09:45 Dose: 167 mls/hr Sodium Chloride (Sodium Chloride 0.9%) 1,000 mls @ 100 mls/hr IV .Q10H [facility] Last Admin: 04/23/17 02:15 Dose: Not Given Meropenem (Merrem Iv 1 Gm Premix) 50 mls @ 100 mls/hr IVPB Q8 [facility] PRN Reason: Protocol Stop: 05/01/17 22:01 Last Admin: 04/23/17 06:05 Dose: 100 mls/hr Ibuprofen (Motrin Tab) 400 mg PO Q6H PRN PRN Reason: Pain, Mild (1-3) Multivitamins/Minerals (Therapeutic-M Tab) 1 tab PO 0800 [facility] Last Admin: 04/23/17 09:46 Dose: 1 tab Pantoprazole Sodium (Protonix Inj) 40 mg IVP DAILY [facility] Last Admin: 04/23/17 09:46 Dose: 40 mg Zinc Sulfate (Zinc Sulfate 220 Mg Cap) 220 mg PO DAILY [facility] Last Admin: 04/22/17 14:03 Dose: 220 mg - Labs Labs: 04/23/17 05:10 04/23/17 05:10 PT 13.2 SECONDS (9.4-12.5) H 04/22/17 05:00 INR 1.14 (0.93-1.08) H 04/22/17 05:00 APTT 28.8 Seconds (25.1-36.5) 04/22/17 05:00 - Constitutional Appears: Well, Non-toxic, No Acute Distress - Extremities Exam Additional comments: Lower extremity focused examination: Small amount of serosanguinous strikethrough with some necrotic dry tissue noted to L heel dressing. Vasc: DP/PT pulses palpable 2/4 B/L. Temperature gradient warm to warm B/L. CFT < 3 sec to all digits. Minimal non-pitting edema localized to L heel. Neuro: Protective sensation grossly diminished B/L Derm: L posterolateral heel exhibits 2.7cm x 1.9cm x 0.2cm ulceration with mixed fibrotic and necrotic base. Increased fibrotic tissue present today after necrotic tissue sloughed off on bandage. Wound borders exhibit mildly hyperkeratotic tissue, softer today. No jose manuel wound erythema, no drainage, no malodor, no probe to bone, no fluctuance. Ortho: Involuntary muscle spasms noted to B/L LE, L>R. No tenderness to palpation of L heel at site of pressure ulcerations. Mild tenderness upon elevation of L leg. - Neurological Exam Neurological Exam: Alert, Awake, Oriented x3 - Psychiatric Exam Psychiatric exam: Normal Affect, Normal Mood Assessment and Plan - Assessment and Plan (Free Text) Assessment: 52 y/o male with left heel ulceration secondary to paraplegia with bed bound status Plan: Pt seen and evaluated at bedside with attending Dr. Jalloh Labs and vitals reviewed- afebrile, WBC 4.2 Wound to left heel cleansed with saline and dressed with Optifoam Wound does not appear clinically infected at this time Rx Santyl to be applied with dressing changes Continue IV abx as per ID Multipodus boots have been ordered, must be worn at all times in bed Podiatry will continue to follow while in house <Patricia Jalloh - Last Filed: 04/26/17 16:14> Objective - Vital Signs/Intake and Output Vital Signs (last 24 hours): Temp Pulse Resp BP Pulse Ox 98 F 51 L 20 107/71 96 04/26/17 08:00 04/26/17 08:00 04/26/17 08:00 04/26/17 08:00 04/26/17 06:00 Intake and Output: 04/26/17 04/26/17 06:59 18:59 Intake Total 2030 780 Output Total 3600 1200 Balance -1570 -420 - Medications Medications: Current Medications Acetaminophen (Tylenol 325mg Tab) 650 mg PO Q4 PRN PRN Reason: Fever >100.4 F Last Admin: 04/24/17 11:59 Dose: 650 mg Ascorbic Acid (Vitamin C 500 Mg Tab) 500 mg PO DAILY [facility] Last Admin: 04/26/17 11:41 Dose: 500 mg Baclofen (Lioresal) 20 mg PO BID [facility] Last Admin: 04/26/17 11:41 Dose: 20 mg Collagenase (Santyl) 0 gm TOP DAILY [facility] Last Admin: 04/26/17 11:31 Dose: 1 oin Diphenhydramine HCl (Benadryl) 25 mg PO Q6 PRN PRN Reason: Itching / Pruritus Last Admin: 04/22/17 12:29 Dose: 25 mg Enoxaparin Sodium (Lovenox) 100 mg SC Q12H [facility] PRN Reason: Protocol Last Admin: 04/26/17 11:41 Dose: 100 mg Gabapentin (Neurontin) 300 mg PO BID [facility] PRN Reason: Protocol Last Admin: 04/26/17 11:41 Dose: 300 mg Vancomycin HCl (Vancomycin 1gm) 1 gm in 250 mls @ 167 mls/hr IVPB Q12 [facility] PRN Reason: Protocol Last Admin: 04/26/17 11:42 Dose: 167 mls/hr Sodium Chloride (Sodium Chloride 0.9%) 1,000 mls @ 100 mls/hr IV .Q10H [facility] Last Admin: 04/25/17 23:11 Dose: 100 mls/hr Meropenem (Merrem Iv 1 Gm Premix) 50 mls @ 100 mls/hr IVPB Q8 [facility] PRN Reason: Protocol Stop: 05/01/17 22:01 Last Admin: 04/26/17 13:56 Dose: 100 mls/hr Ibuprofen (Motrin Tab) 400 mg PO Q6H PRN PRN Reason: Pain, Mild (1-3) Multivitamins/Minerals (Therapeutic-M Tab) 1 tab PO 0800 [facility] Last Admin: 04/26/17 08:43 Dose: 1 tab Pantoprazole Sodium (Protonix Ec Tab) 40 mg PO ACB [facility] Last Admin: 04/26/17 08:43 Dose: 40 mg Warfarin Sodium (Coumadin) 10 mg PO 1200 [facility] PRN Reason: Protocol Last Admin: 04/26/17 11:41 Dose: 10 mg Zinc Sulfate (Zinc Sulfate 220 Mg Cap) 220 mg PO DAILY [facility] Last Admin: 04/26/17 11:40 Dose: 220 mg - Labs Labs: 04/26/17 06:25 04/26/17 06:25 PT 13.3 SECONDS (9.4-12.5) H 04/26/17 06:25 INR 1.15 (0.93-1.08) H 04/26/17 06:25 APTT 35.1 Seconds (25.1-36.5) 04/26/17 06:25 Attending/Attestation - Attestation I have personally seen and examined this patient.: Yes I have fully participated in the care of the patient.: Yes I have reviewed all pertinent clinical information, including history, physical exam and plan: Yes
--- NOTE | 2017-04-23 12:07 | CP.PCM.PN ---
<Ana Lilia Johnson - Last Filed: 04/23/17 15:14> Subjective - Date & Time of Evaluation Date of Evaluation: 04/23/17 Time of Evaluation: 12:04 - Subjective Subjective: GENERAL SURGERY CONSULT PROGRESS NOTE FOR DR. BUNN Patient has been seen and examined. No overnight events reported. Has no complaints at this time. Patient denies any pain or odor from sacral wound. Objective - Vital Signs/Intake and Output Vital Signs (last 24 hours): Temp Pulse Resp BP Pulse Ox 98.8 F 60 18 105/50 L 96 04/23/17 06:00 04/23/17 06:00 04/23/17 06:00 04/23/17 06:00 04/23/17 06:00 Intake and Output: 04/23/17 04/23/17 06:59 18:59 Intake Total 1500 Output Total 1700 Balance -200 - Medications Medications: Current Medications Acetaminophen (Tylenol 325mg Tab) 650 mg PO Q4 PRN PRN Reason: Fever >100.4 F Ascorbic Acid (Vitamin C 500 Mg Tab) 500 mg PO DAILY [facility] Last Admin: 04/23/17 10:07 Dose: 500 mg Baclofen (Lioresal) 20 mg PO BID [facility] Last Admin: 04/23/17 09:46 Dose: 20 mg Collagenase (Santyl) 0 gm TOP DAILY [facility] Diphenhydramine HCl (Benadryl) 25 mg PO Q6 PRN PRN Reason: Itching / Pruritus Last Admin: 04/22/17 12:29 Dose: 25 mg Gabapentin (Neurontin) 300 mg PO BID [facility] PRN Reason: Protocol Last Admin: 04/23/17 09:45 Dose: 300 mg Heparin Sodium (Porcine) (Heparin) 5,000 units SC Q12 [facility] PRN Reason: Protocol Last Admin: 04/23/17 09:45 Dose: 5,000 units Vancomycin HCl (Vancomycin 1gm) 1 gm in 250 mls @ 167 mls/hr IVPB Q12 [facility] PRN Reason: Protocol Last Admin: 04/23/17 09:45 Dose: 167 mls/hr Sodium Chloride (Sodium Chloride 0.9%) 1,000 mls @ 100 mls/hr IV .Q10H [facility] Last Admin: 04/23/17 02:15 Dose: Not Given Meropenem (Merrem Iv 1 Gm Premix) 50 mls @ 100 mls/hr IVPB Q8 [facility] PRN Reason: Protocol Stop: 05/01/17 22:01 Last Admin: 04/23/17 06:05 Dose: 100 mls/hr Ibuprofen (Motrin Tab) 400 mg PO Q6H PRN PRN Reason: Pain, Mild (1-3) Multivitamins/Minerals (Therapeutic-M Tab) 1 tab PO 0800 [facility] Last Admin: 04/23/17 09:46 Dose: 1 tab Pantoprazole Sodium (Protonix Inj) 40 mg IVP DAILY [facility] Last Admin: 04/23/17 09:46 Dose: 40 mg Zinc Sulfate (Zinc Sulfate 220 Mg Cap) 220 mg PO DAILY [facility] Last Admin: 04/23/17 10:07 Dose: 220 mg - Labs Labs: 04/23/17 05:10 04/23/17 05:10 PT 13.2 SECONDS (9.4-12.5) H 04/22/17 05:00 INR 1.14 (0.93-1.08) H 04/22/17 05:00 APTT 28.8 Seconds (25.1-36.5) 04/22/17 05:00 - Additional Findings Additional findings: - Constitutional Appears: Non-toxic - Head Exam Head Exam: ATRAUMATIC, NORMAL INSPECTION, NORMOCEPHALIC - Eye Exam Eye Exam: EOMI, Normal appearance Pupil Exam: PERRL - ENT Exam ENT Exam: Mucous Membranes Moist - Respiratory Exam Respiratory Exam: NORMAL BREATHING PATTERN. absent: Accessory Muscle Use, Respiratory Distress - Cardiovascular Exam Cardiovascular Exam: REGULAR RHYTHM, +S1, +S2 - Extremities Exam Extremities exam: Positive for: pedal edema (left), pedal pulses present ( bilaterally 2/4) - Expanded Lower Extremities Exam Left Foot/Toe exam: absent: normal inspection (healed wound 3x5 cm on left foot, lateral heal) - Back Exam Back exam: absent: NORMAL INSPECTION Additional comments: laminectomy scar T4-T7 - Neurological Exam Neurological exam: Alert, CN II-XII Intact, Oriented x3 - Skin Additional comments: Sacral decubitus ulcer- healing Right superior gluteal ulcer with Stage III, 4x4x3 cm. Malodorous with exudate. Assessment and Plan - Assessment and Plan (Free Text) Assessment: 52 year old male with a history of paraplegia s/p spinal abscess, laminectomy, DVT in right lower extremity treated with warfarin who presented to [facility] on . Surgery consulted for evaluation and treatment of right hip wound, healing sacral ulcer and left heel pressure ulcer. Plan: Healing Sacral Ulcer -Optifoam Dressing -Air Mattress -Turn Q2H Stage III Right Superior Gluteal Ulcer - 4x4x3 Stage III Ulcer. Exudate. Undermining from 11-3 o'clock. -Air Mattress -Bedside debridement/wound vac done today. -Began Process for [employer] Wound Vac. Patient will need wound vac for an extended period of time. -Wound Vac to be changed on 04/27/2017 -Santyl -Optifoam Dressing -Turn Q2H Left foot wound - Management as per Podiatry. Dispo: Patient is afebrile. Vital signs are stable. Further Recs as per Dr. Bunn. Ana Lilia Johnson - PGY1 <Tobin Piedra - Last Filed: 04/23/17 17:37> Objective - Vital Signs/Intake and Output Vital Signs (last 24 hours): Temp Pulse Resp BP Pulse Ox 97.9 F 59 L 16 121/79 96 04/23/17 12:00 04/23/17 12:00 04/23/17 12:00 04/23/17 12:00 04/23/17 06:00 Intake and Output: 04/23/17 04/23/17 06:59 18:59 Intake Total 1500 Output Total 1700 Balance -200 - Medications Medications: Current Medications Acetaminophen (Tylenol 325mg Tab) 650 mg PO Q4 PRN PRN Reason: Fever >100.4 F Ascorbic Acid (Vitamin C 500 Mg Tab) 500 mg PO DAILY [facility] Last Admin: 04/23/17 10:07 Dose: 500 mg Baclofen (Lioresal) 20 mg PO BID [facility] Last Admin: 04/23/17 17:04 Dose: 20 mg Collagenase (Santyl) 0 gm TOP DAILY [facility] Diphenhydramine HCl (Benadryl) 25 mg PO Q6 PRN PRN Reason: Itching / Pruritus Last Admin: 04/22/17 12:29 Dose: 25 mg Enoxaparin Sodium (Lovenox) 100 mg SC Q12H [facility] PRN Reason: Protocol Last Admin: 04/23/17 13:47 Dose: 100 mg Gabapentin (Neurontin) 300 mg PO BID [facility] PRN Reason: Protocol Last Admin: 04/23/17 17:04 Dose: 300 mg Vancomycin HCl (Vancomycin 1gm) 1 gm in 250 mls @ 167 mls/hr IVPB Q12 [facility] PRN Reason: Protocol Last Admin: 04/23/17 09:45 Dose: 167 mls/hr Sodium Chloride (Sodium Chloride 0.9%) 1,000 mls @ 100 mls/hr IV .Q10H [facility] Last Admin: 04/23/17 02:15 Dose: Not Given Meropenem (Merrem Iv 1 Gm Premix) 50 mls @ 100 mls/hr IVPB Q8 [facility] PRN Reason: Protocol Stop: 05/01/17 22:01 Last Admin: 04/23/17 13:46 Dose: 100 mls/hr Ibuprofen (Motrin Tab) 400 mg PO Q6H PRN PRN Reason: Pain, Mild (1-3) Multivitamins/Minerals (Therapeutic-M Tab) 1 tab PO 0800 [facility] Last Admin: 04/23/17 09:46 Dose: 1 tab Pantoprazole Sodium (Protonix Ec Tab) 40 mg PO ACB [facility] Warfarin Sodium (Coumadin) 5 mg PO 1800 [facility] PRN Reason: Protocol Zinc Sulfate (Zinc Sulfate 220 Mg Cap) 220 mg PO DAILY [facility] Last Admin: 04/23/17 10:07 Dose: 220 mg - Labs Labs: 04/23/17 05:10 04/23/17 05:10 PT 13.2 SECONDS (9.4-12.5) H 04/22/17 05:00 INR 1.14 (0.93-1.08) H 04/22/17 05:00 APTT 28.8 Seconds (25.1-36.5) 04/22/17 05:00 Attending/Attestation - Attestation I have personally seen and examined this patient.: Yes I have fully participated in the care of the patient.: Yes I have reviewed all pertinent clinical information, including history, physical exam and plan: Yes Notes (Text): 04/23/17 17:34 attending note; Patient seen and examined with resident. Patient is a 52-year-old male with a past medical history of spinal abscess/ paraplegia and sacral decubitus ulcer, colostomy, chronic Mackenzie catheter is admitted for sacral decubitus ulcer. X-ray showed degenerative change. Status post debridement by surgery. Wound VAC will be placed today. Started back on Lovenox and Coumadin. PT evaluation requested. Upon discharge the patient will follow-up with PMD . the patient needs close outpatient wound care follow-up.
[2017-04-23] MEDS: Enoxaparin 100 mg Syringe SC SCH (13:47)
--- NOTE | 2017-04-23 14:24 | PN ---
DATE: 04/23/2017 SUBJECTIVE: The patient is in bed, in no acute distress, nontoxic. PHYSICAL EXAMINATION: VITAL SIGNS: Temperature is 97, blood pressure is 120/70, and respiratory rate of 16. HEENT: Unremarkable. NECK: Supple. LUNGS: Have decreased breath sounds. HEART: Normal S1 and S2. ABDOMEN: Soft. LABORATORY DATA: Reveals white count of 4.5, hemoglobin of 9, and platelets of 169. BUN of 13 and creatinine of 0.6. Procalcitonin is less than 0.05. ASSESSMENT AND PLAN: A 57-year-old with past medical history significant for alcoholism, history of Streptococcus pneumoniae, epidural abscess, and spinal cord disease, which resulted in paralysis. The patient with deep vein thrombosis. The patient had Strep pneumonia, epidural abscess, had laminectomy, and has been paralyzed, is in bed, now with: 1. Decubitus ulcer, with mild erythema, on vancomycin and meropenem. The patient is for her wound VAC. We will give a short course of antibiotics. The patient did have an x-ray of the sacrum, which revealed degenerative changes, on vancomycin and meropenem. Colt Coronel MD
[2017-04-24] MEDS: Enoxaparin 100 mg Syringe SC SCH ×2 (01:15→11:56)
[2017-04-24] MEDS: Meropenem IV 1 gm in NS 50 ML IVPB SCH ×3 (05:58→21:39)
[2017-04-24 07:21] LABS: BASO # 0.02 K/mm3 (0.0-2.0); BASO % 0.4 % (0.0-3.0); EOS # 0.2 (0.0-0.7); EOS % 3.5 % (1.5-5.0); GRAN # 2.63 (1.4-6.5); GRAN % 57.4 % (50.0-68.0); HEMOGLOBIN 10.3 g/dL (14.0-18.0); LYMPH # 1.4 (1.2-3.4); LYMPH % 29.8 % (22.0-35.0); MEAN CORPUSCULAR HEMOGLOBIN 25.3 pg (25.0-35.0); MEAN CORPUSCULAR HGB CONC 30.5 g/dl (31.0-37.0); MEAN PLATELET VOLUME 11.5 fl (7.0-11.0); MONO # 0.4 (0.1-0.6); MONO % 8.9 % (1.0-6.0); RBC 4.07 10^6/uL (3.5-6.1); RED CELL DISTRIBUTION WIDTH 15.4 % (11.5-14.5); WHITE BLOOD COUNT 4.6 10^3/ul (4.5-11.0)
[2017-04-24 07:34] LABS: INR 1.15 (0.93-1.08); PARTIAL THROMBOPLASTIN TIME 35.5 Seconds (25.1-36.5); PROTHROMBIN TIME 13.3 SECONDS (9.4-12.5)
[2017-04-24 07:47] LABS: ALBUMIN 3.3 g/dL (3.0-4.8); ALT/SGPT 21 U/L (7-56); AST/SGOT 23 U/L (17-59); BLOOD UREA NITROGEN 11 mg/dL (7-21); CALCIUM 9.4 mg/dL (8.4-10.5); GFR AFRICAN-AMERICAN > 60; GFR NON-AFRICAN AMERICAN > 60
--- NOTE | 2017-04-24 08:51 | CP.PCM.PN ---
Subjective - Date & Time of Evaluation Date of Evaluation: 04/24/17 Time of Evaluation: 08:45 - Subjective Subjective: GENERAL SURGERY CONSULT PROGRESS NOTE FOR DR. BUNN Patient has been seen and examined. No overnight events reported. Has no complaints at this time. Patient denies any pain or odor from sacral wound. Objective - Vital Signs/Intake and Output Vital Signs (last 24 hours): Temp Pulse Resp BP Pulse Ox 98.3 F 74 18 126/70 97 04/24/17 04:54 04/24/17 04:54 04/24/17 04:54 04/24/17 04:54 04/24/17 04:54 Intake and Output: 04/24/17 04/24/17 06:59 18:59 Intake Total 1800 Output Total 2400 Balance -600 - Medications Medications: Current Medications Acetaminophen (Tylenol 325mg Tab) 650 mg PO Q4 PRN PRN Reason: Fever >100.4 F Ascorbic Acid (Vitamin C 500 Mg Tab) 500 mg PO DAILY [facility] Last Admin: 04/23/17 10:07 Dose: 500 mg Baclofen (Lioresal) 20 mg PO BID [facility] Last Admin: 04/23/17 17:04 Dose: 20 mg Collagenase (Santyl) 0 gm TOP DAILY [facility] Diphenhydramine HCl (Benadryl) 25 mg PO Q6 PRN PRN Reason: Itching / Pruritus Last Admin: 04/22/17 12:29 Dose: 25 mg Enoxaparin Sodium (Lovenox) 100 mg SC Q12H [facility] PRN Reason: Protocol Last Admin: 04/24/17 01:15 Dose: 100 mg Gabapentin (Neurontin) 300 mg PO BID [facility] PRN Reason: Protocol Last Admin: 04/23/17 17:04 Dose: 300 mg Vancomycin HCl (Vancomycin 1gm) 1 gm in 250 mls @ 167 mls/hr IVPB Q12 [facility] PRN Reason: Protocol Last Admin: 04/23/17 22:33 Dose: 167 mls/hr Sodium Chloride (Sodium Chloride 0.9%) 1,000 mls @ 100 mls/hr IV .Q10H [facility] Last Admin: 04/23/17 22:20 Dose: 100 mls/hr Meropenem (Merrem Iv 1 Gm Premix) 50 mls @ 100 mls/hr IVPB Q8 [facility] PRN Reason: Protocol Stop: 05/01/17 22:01 Last Admin: 04/24/17 05:58 Dose: 100 mls/hr Ibuprofen (Motrin Tab) 400 mg PO Q6H PRN PRN Reason: Pain, Mild (1-3) Multivitamins/Minerals (Therapeutic-M Tab) 1 tab PO 0800 [facility] Last Admin: 04/23/17 09:46 Dose: 1 tab Pantoprazole Sodium (Protonix Ec Tab) 40 mg PO ACB [facility] Warfarin Sodium (Coumadin) 5 mg PO 1800 [facility] PRN Reason: Protocol Last Admin: 04/23/17 19:40 Dose: Not Given Zinc Sulfate (Zinc Sulfate 220 Mg Cap) 220 mg PO DAILY [facility] Last Admin: 04/23/17 10:07 Dose: 220 mg - Labs Labs: 04/24/17 06:45 04/24/17 06:45 PT 13.3 SECONDS (9.4-12.5) H 04/24/17 06:45 INR 1.15 (0.93-1.08) H 04/24/17 06:45 APTT 35.5 Seconds (25.1-36.5) 04/24/17 06:45 - Additional Findings Additional findings: - Constitutional Appears: Non-toxic - Head Exam Head Exam: ATRAUMATIC, NORMAL INSPECTION, NORMOCEPHALIC - Eye Exam Eye Exam: EOMI, Normal appearance Pupil Exam: PERRL - ENT Exam ENT Exam: Mucous Membranes Moist - Respiratory Exam Respiratory Exam: NORMAL BREATHING PATTERN. absent: Accessory Muscle Use, Respiratory Distress - Cardiovascular Exam Cardiovascular Exam: REGULAR RHYTHM, +S1, +S2 - Extremities Exam Extremities exam: Positive for: pedal edema (left), pedal pulses present ( bilaterally 2/4) - Expanded Lower Extremities Exam Left Foot/Toe exam: absent: normal inspection (healed wound 3x5 cm on left foot, lateral heal) Multipodus boot - Back Exam Back exam: absent: NORMAL INSPECTION Additional comments: laminectomy scar T4-T7 - Neurological Exam Neurological exam: Alert, CN II-XII Intact, Oriented x3 - Skin Additional comments: Sacral decubitus ulcer- healing Right superior gluteal ulcer with Stage III, 4x4x3 cm. Wound Vac. Assessment and Plan - Assessment and Plan (Free Text) Assessment: 52 year old male with a history of paraplegia s/p spinal abscess, laminectomy, DVT in right lower extremity treated with warfarin who presented to [facility] on . Surgery consulted for evaluation and treatment of right hip wound, healing sacral ulcer and left heel pressure ulcer. Plan: Healing Sacral Ulcer -Optifoam Dressing -Air Mattress -Turn Q2H Stage III Right Superior Gluteal Ulcer - 4x4x3 Stage III Ulcer. Exudate. Undermining from 11-3 o'clock. -Air Mattress -Bedside debridement/wound vac done yesterday. -Began Process for [employer] Wound Vac. Patient will need wound vac for an extended period of time. -Wound Vac to be changed on anticipated discharge date (Thursday04/26/2017). He will go home with wound vac. -Santyl -Optifoam Dressing -Turn Q2H Left foot wound - Management as per Podiatry. Dispo: Patient is afebrile. Vital signs are stable. Discussed with Dr. Bunn. Ana Lilia Johnson - PGY1
[2017-04-24] MEDS: Multivitamin With Minerals Tab PO SCH (09:01)
[2017-04-24] MEDS: Pantoprazole 40 mg EC Tab PO SCH (09:01)
--- NOTE | 2017-04-24 11:28 | CP.PCM.PN ---
<Xiomara Canales - Last Filed: 04/24/17 11:25> Subjective - Date & Time of Evaluation Date of Evaluation: 04/24/17 Time of Evaluation: 11:25 - Subjective Subjective: 52 y/o male seen at bedside with attending Dr. Mojica for left heel ulceration. Pt denies any acute events overnight. Denies F/C/N/V/CP/SOB. Denies any pedal pain at this time. Multipodus boots are on to bilateral lower extremities at time of visit. Dressing remains clean dry and intact. Objective - Vital Signs/Intake and Output Vital Signs (last 24 hours): Temp Pulse Resp BP Pulse Ox 98.3 F 74 18 126/70 97 04/24/17 04:54 04/24/17 04:54 04/24/17 04:54 04/24/17 04:54 04/24/17 04:54 Intake and Output: 04/24/17 04/24/17 06:59 18:59 Intake Total 1800 Output Total 2400 Balance -600 - Medications Medications: Current Medications Acetaminophen (Tylenol 325mg Tab) 650 mg PO Q4 PRN PRN Reason: Fever >100.4 F Ascorbic Acid (Vitamin C 500 Mg Tab) 500 mg PO DAILY [facility] Last Admin: 04/23/17 10:07 Dose: 500 mg Baclofen (Lioresal) 20 mg PO BID [facility] Last Admin: 04/23/17 17:04 Dose: 20 mg Collagenase (Santyl) 0 gm TOP DAILY [facility] Diphenhydramine HCl (Benadryl) 25 mg PO Q6 PRN PRN Reason: Itching / Pruritus Last Admin: 04/22/17 12:29 Dose: 25 mg Enoxaparin Sodium (Lovenox) 100 mg SC Q12H [facility] PRN Reason: Protocol Last Admin: 04/24/17 01:15 Dose: 100 mg Gabapentin (Neurontin) 300 mg PO BID [facility] PRN Reason: Protocol Last Admin: 04/23/17 17:04 Dose: 300 mg Vancomycin HCl (Vancomycin 1gm) 1 gm in 250 mls @ 167 mls/hr IVPB Q12 [facility] PRN Reason: Protocol Last Admin: 04/23/17 22:33 Dose: 167 mls/hr Sodium Chloride (Sodium Chloride 0.9%) 1,000 mls @ 100 mls/hr IV .Q10H [facility] Last Admin: 04/23/17 22:20 Dose: 100 mls/hr Meropenem (Merrem Iv 1 Gm Premix) 50 mls @ 100 mls/hr IVPB Q8 [facility] PRN Reason: Protocol Stop: 05/01/17 22:01 Last Admin: 04/24/17 05:58 Dose: 100 mls/hr Ibuprofen (Motrin Tab) 400 mg PO Q6H PRN PRN Reason: Pain, Mild (1-3) Multivitamins/Minerals (Therapeutic-M Tab) 1 tab PO 0800 [facility] Last Admin: 04/24/17 09:01 Dose: 1 tab Pantoprazole Sodium (Protonix Ec Tab) 40 mg PO ACB [facility] Last Admin: 04/24/17 09:01 Dose: 40 mg Warfarin Sodium (Coumadin) 5 mg PO 1800 [facility] PRN Reason: Protocol Last Admin: 04/23/17 19:40 Dose: Not Given Zinc Sulfate (Zinc Sulfate 220 Mg Cap) 220 mg PO DAILY [facility] Last Admin: 04/23/17 10:07 Dose: 220 mg - Labs Labs: 04/24/17 06:45 04/24/17 06:45 PT 13.3 SECONDS (9.4-12.5) H 04/24/17 06:45 INR 1.15 (0.93-1.08) H 04/24/17 06:45 APTT 35.5 Seconds (25.1-36.5) 04/24/17 06:45 - Constitutional Appears: Well, Non-toxic, No Acute Distress - Extremities Exam Additional comments: Lower extremity focused examination: Small amount of serosanguinous strikethrough with some necrotic dry tissue noted to L heel dressing. Vasc: DP/PT pulses palpable 2/4 B/L. Temperature gradient warm to warm B/L. CFT < 3 sec to all digits. Minimal non-pitting edema localized to L heel. Neuro: Protective sensation grossly diminished B/L Derm: L posterolateral heel exhibits 2.7cm x 1.9cm x 0.2cm ulceration with mixed fibrotic and necrotic base. Wound borders exhibit mildly hyperkeratotic tissue, softer today. No jose manuel wound erythema, no drainage, no malodor, no probe to bone, no fluctuance. Ortho: Involuntary muscle spasms noted to B/L LE, L>R. No tenderness to palpation of L heel at site of pressure ulcerations. - Neurological Exam Neurological Exam: Alert, Awake, Oriented x3 - Psychiatric Exam Psychiatric exam: Normal Affect, Normal Mood Assessment and Plan - Assessment and Plan (Free Text) Assessment: 52 y/o male with left heel ulceration secondary to paraplegia with bed bound status Plan: Pt seen and evaluated at bedside with attending Dr. Mojica Labs and vitals reviewed- afebrile, WBC 4.6 Wound to left heel cleansed with saline and dressed with Santyl and Optifoam Wound does not appear clinically infected at this time Rx Santyl to be applied with dressing changes Continue IV abx as per ID - Vancomycin, Meropenem Multipodus boots have been ordered, must be worn at all times in bed Podiatry will continue to follow while in house <Adair Mojica - Last Filed: 04/25/17 08:30> Objective - Vital Signs/Intake and Output Vital Signs (last 24 hours): Temp Pulse Resp BP Pulse Ox 98.3 F 74 16 126/70 97 04/24/17 04:54 04/24/17 04:54 04/24/17 22:00 04/24/17 04:54 04/24/17 04:54 Intake and Output: 04/25/17 04/25/17 06:59 18:59 Intake Total 1200 Output Total 3400 Balance -2200 - Medications Medications: Current Medications Acetaminophen (Tylenol 325mg Tab) 650 mg PO Q4 PRN PRN Reason: Fever >100.4 F Last Admin: 04/24/17 11:59 Dose: 650 mg Ascorbic Acid (Vitamin C 500 Mg Tab) 500 mg PO DAILY [facility] Last Admin: 04/24/17 11:56 Dose: 500 mg Baclofen (Lioresal) 20 mg PO BID [facility] Last Admin: 04/24/17 17:47 Dose: 20 mg Collagenase (Santyl) 0 gm TOP DAILY [facility] Last Admin: 04/24/17 14:48 Dose: 1 oin Diphenhydramine HCl (Benadryl) 25 mg PO Q6 PRN PRN Reason: Itching / Pruritus Last Admin: 04/22/17 12:29 Dose: 25 mg Enoxaparin Sodium (Lovenox) 100 mg SC Q12H [facility] PRN Reason: Protocol Last Admin: 04/25/17 02:33 Dose: 100 mg Gabapentin (Neurontin) 300 mg PO BID [facility] PRN Reason: Protocol Last Admin: 04/24/17 17:50 Dose: 300 mg Vancomycin HCl (Vancomycin 1gm) 1 gm in 250 mls @ 167 mls/hr IVPB Q12 [facility] PRN Reason: Protocol Last Admin: 04/24/17 21:40 Dose: 167 mls/hr Sodium Chloride (Sodium Chloride 0.9%) 1,000 mls @ 100 mls/hr IV .Q10H [facility] Last Admin: 04/25/17 05:38 Dose: 100 mls/hr Meropenem (Merrem Iv 1 Gm Premix) 50 mls @ 100 mls/hr IVPB Q8 [facility] PRN Reason: Protocol Stop: 05/01/17 22:01 Last Admin: 04/25/17 05:35 Dose: 100 mls/hr Ibuprofen (Motrin Tab) 400 mg PO Q6H PRN PRN Reason: Pain, Mild (1-3) Multivitamins/Minerals (Therapeutic-M Tab) 1 tab PO 0800 [facility] Last Admin: 04/24/17 09:01 Dose: 1 tab Pantoprazole Sodium (Protonix Ec Tab) 40 mg PO ACB [facility] Last Admin: 04/24/17 09:01 Dose: 40 mg Warfarin Sodium (Coumadin) 5 mg PO 1800 [facility] PRN Reason: Protocol Last Admin: 04/24/17 17:47 Dose: 5 mg Zinc Sulfate (Zinc Sulfate 220 Mg Cap) 220 mg PO DAILY [facility] Last Admin: 04/24/17 11:56 Dose: 220 mg - Labs Labs: 04/25/17 06:30 04/25/17 06:30 PT 13.1 SECONDS (9.4-12.5) H 04/25/17 06:30 INR 1.14 (0.93-1.08) H 04/25/17 06:30 APTT 31.7 Seconds (25.1-36.5) 04/25/17 06:30 Attending/Attestation - Attestation I have personally seen and examined this patient.: Yes I have fully participated in the care of the patient.: Yes I have reviewed all pertinent clinical information, including history, physical exam and plan: Yes
[2017-04-24] MEDS: Vancomycin 1gm in NS 250ml 1 GM/250 ML BAG IVPB SCH ×2 (12:06→21:40)
[2017-04-24] MEDS: Collagenase 250 Units/gm Ointment(30 gm) TOP SCH (14:48)
--- NOTE | 2017-04-24 15:45 | CP.PCM.PN ---
Addendum entered and electronically signed by Paul Cummings DO 04/24/17 16:19 : Alternate dressing is normal saline wet-to-dry dressing Patient will be going home on Coumadin, NOT lovenox Original Note: <Paul Cummings - Last Filed: 04/24/17 15:56> Subjective - Date & Time of Evaluation Date of Evaluation: 04/24/17 Time of Evaluation: 10:41 - Subjective Subjective: Paul Cummings PGY1 IM Progress Note Patient was seen and examined bedside. He denies any acute overnight events. He is told that he has an infection which is being treated and he denies fevers/ chills, n/v/d, chest pain, shortness of breath and any abdominal pain or urinary /bowel habit changes. Patient is able to change his own colostomy bag at home. Objective - Vital Signs/Intake and Output Vital Signs (last 24 hours): Temp Pulse Resp BP Pulse Ox 98.3 F 74 18 126/70 97 04/24/17 04:54 04/24/17 04:54 04/24/17 04:54 04/24/17 04:54 04/24/17 04:54 Intake and Output: 04/24/17 04/24/17 06:59 18:59 Intake Total 1800 Output Total 2400 Balance -600 - Medications Medications: Current Medications Acetaminophen (Tylenol 325mg Tab) 650 mg PO Q4 PRN PRN Reason: Fever >100.4 F Last Admin: 04/24/17 11:59 Dose: 650 mg Ascorbic Acid (Vitamin C 500 Mg Tab) 500 mg PO DAILY [facility] Last Admin: 04/24/17 11:56 Dose: 500 mg Baclofen (Lioresal) 20 mg PO BID [facility] Last Admin: 04/24/17 11:56 Dose: 20 mg Collagenase (Santyl) 0 gm TOP DAILY [facility] Last Admin: 04/24/17 14:48 Dose: 1 oin Diphenhydramine HCl (Benadryl) 25 mg PO Q6 PRN PRN Reason: Itching / Pruritus Last Admin: 04/22/17 12:29 Dose: 25 mg Enoxaparin Sodium (Lovenox) 100 mg SC Q12H [facility] PRN Reason: Protocol Last Admin: 04/24/17 11:56 Dose: 100 mg Gabapentin (Neurontin) 300 mg PO BID [facility] PRN Reason: Protocol Last Admin: 04/24/17 11:56 Dose: 300 mg Vancomycin HCl (Vancomycin 1gm) 1 gm in 250 mls @ 167 mls/hr IVPB Q12 [facility] PRN Reason: Protocol Last Admin: 04/24/17 12:06 Dose: 167 mls/hr Sodium Chloride (Sodium Chloride 0.9%) 1,000 mls @ 100 mls/hr IV .Q10H [facility] Last Admin: 04/23/17 22:20 Dose: 100 mls/hr Meropenem (Merrem Iv 1 Gm Premix) 50 mls @ 100 mls/hr IVPB Q8 [facility] PRN Reason: Protocol Stop: 05/01/17 22:01 Last Admin: 04/24/17 14:47 Dose: 100 mls/hr Ibuprofen (Motrin Tab) 400 mg PO Q6H PRN PRN Reason: Pain, Mild (1-3) Multivitamins/Minerals (Therapeutic-M Tab) 1 tab PO 0800 [facility] Last Admin: 04/24/17 09:01 Dose: 1 tab Pantoprazole Sodium (Protonix Ec Tab) 40 mg PO ACB [facility] Last Admin: 04/24/17 09:01 Dose: 40 mg Warfarin Sodium (Coumadin) 5 mg PO 1800 [facility] PRN Reason: Protocol Last Admin: 04/23/17 19:40 Dose: Not Given Zinc Sulfate (Zinc Sulfate 220 Mg Cap) 220 mg PO DAILY [facility] Last Admin: 04/24/17 11:56 Dose: 220 mg - Labs Labs: 04/24/17 06:45 04/24/17 06:45 PT 13.3 SECONDS (9.4-12.5) H 04/24/17 06:45 INR 1.15 (0.93-1.08) H 04/24/17 06:45 APTT 35.5 Seconds (25.1-36.5) 04/24/17 06:45 - Additional Findings Additional findings: - Constitutional Appears: Well, Non-toxic, No Acute Distress - Head Exam Head Exam: NORMAL INSPECTION - Eye Exam Eye Exam: EOMI, Normal appearance - ENT Exam ENT Exam: Mucous Membranes Dry - Neck Exam Neck Exam: Normal Inspection - Respiratory Exam Respiratory Exam: Clear to Ausculation Bilateral, NORMAL BREATHING PATTERN. absent: Rales, Rhonchi, Wheezes - Cardiovascular Exam Cardiovascular Exam: RRR, +S1, +S2 - GI/Abdominal Exam GI & Abdominal Exam: Soft, Normal Bowel Sounds. absent: Distended, Tenderness Additional comments: colostomy bag in place brown stools noted with no blood - Extremities Exam Extremities Exam: absent: Full ROM (paraplegic; rigidity noted) Additional comments: L heel pressure ulcer properly dressed and in multipodus offloading boot no pressure ulcers on R heel - Back Exam Additional comments: areas of ulceration dressed (clean/dry/intact) wound vac in place - Neurological Exam Neurological Exam: Alert, Awake, Oriented x3 Neuro motor strength exam: Left Upper Extremity: 5, Right Upper Extremity: 5, Left Lower Extremity: 2/1, Right Lower Extremity: 2/1 - Psychiatric Exam Psychiatric exam: Normal Affect, Normal Mood - Skin Skin Exam: Normal Color, Warm Additional comments: noted as above Assessment and Plan - Assessment and Plan (Free Text) Assessment: 52 year old male with a history of paraplegia s/p spinal abscess, laminectomy, DVT in right lower extremity on Warfarin who presented with complaints of malodorous discharge and ulceration from right superior gluteal wound x1 week and heel ulcer. Buttock sample from surgical bedside debridement is growing enterococcus faecalis and a second gram positive cocci (pending). Prior wound culture (04/21) from ED was a swab and likely inaccurate, per ID. Blood cultures negative x 48hrs and procal is low. Medical team had discussion with several groups today: 1. Dairy Technician and Wound care nurse regarding wound vac placement and maintenance. - It is important check PT/INR on Thursday04/27/17 to make sure that patient has been properly bridged to Coumadin from Lovenox; if INR < 2, Lovenox should be administered at 100mg Q12H, Coumadin should be increased to 7.5 for the rest of the week and INR will be checked on Thursday. Otherwise, if INR is 2-3, PT/INR may be checked on Thursday05/01/17. - Visiting nurse should be changing dressing around wound vac as well as maintaining clean dressing around L heel ulcer every 4-5 days. - Mackenzie catheter should be removed and a new sterile one placed every 4 weeks after being discharged from [facility]. 2. ID recommends Zyvox PO for 2 weeks as antibiotics, but prefer to wait for final culture results. 3. Surgery will be available over the weekend, and will place portable home wound vac on patient Thursday and recommend sterile dry alternate dressing to site if wound vac is to malfunction for any reason. 4. Podiatry is following patient inhouse but cleared patient for discharge Plan: 1. Right sacral ulcer - General Surgery consulted; recommends bedside debridement w/ wound vac and continue with santyl dressings, will place home wound vac on Thursday - Infectious disease consulted, recommend 2 weeks of Zyvox PO on discharge - cont Merrem while inpatient - cont vitamin C, MV, and Zinc - Blood cultures negative - wound cultures growing enterococcus faecalis and another gram positive cocci; this sample was post surgical bedside debridement. Prior culture growing providencia rettgeri and acinetobacter baumannii that is multi-drug resistant was likely a swab sample from ED and likely contaminated per ED. - patient remains afebrile and with no WBC elevation, clinically doing well - Sacral and Pelvic X-ray showed no acute displaced fracture nor dislocation. Minimal degenerative osteoarthritis both hip joints with heterotopic bone changes left greater than right. - wound care nurse providing wound care - Regular diet ordered - SW consulted for wound vac 2. Left foot wound - Podiatry consulted, recommend clean dressing upon discharge and multipodus offloading boot at all times - wound care consulted - Fasting lipid panel ordered; results pending 3. Hx DVT - bridging Lovenox to Coumadin - Lovenox 100mg Q12 to Coumadin 5mg daily - INR subtherapeutic on admission 4. Hx Neuropathy - Continue baclofen and neurontin - No further intervention at this time 5. DVT/GI prophylaxis - Protonix for GI PPX - Coumadin and SCDs for DVT PPX Patient was seen, examined and discussed with attending, Dr. Dorothea Cumminsg PGY1 Pager # [phone] <Tobin Piedra - Last Filed: 04/24/17 17:47> Objective - Vital Signs/Intake and Output Vital Signs (last 24 hours): Temp Pulse Resp BP Pulse Ox 98.3 F 74 18 126/70 97 04/24/17 04:54 04/24/17 04:54 04/24/17 04:54 04/24/17 04:54 04/24/17 04:54 Intake and Output: 04/24/17 04/24/17 06:59 18:59 Intake Total 1800 Output Total 2400 Balance -600 - Medications Medications: Current Medications Acetaminophen (Tylenol 325mg Tab) 650 mg PO Q4 PRN PRN Reason: Fever >100.4 F Last Admin: 04/24/17 11:59 Dose: 650 mg Ascorbic Acid (Vitamin C 500 Mg Tab) 500 mg PO DAILY [facility] Last Admin: 04/24/17 11:56 Dose: 500 mg Baclofen (Lioresal) 20 mg PO BID [facility] Last Admin: 04/24/17 11:56 Dose: 20 mg Collagenase (Santyl) 0 gm TOP DAILY [facility] Last Admin: 04/24/17 14:48 Dose: 1 oin Diphenhydramine HCl (Benadryl) 25 mg PO Q6 PRN PRN Reason: Itching / Pruritus Last Admin: 04/22/17 12:29 Dose: 25 mg Enoxaparin Sodium (Lovenox) 100 mg SC Q12H [facility] PRN Reason: Protocol Last Admin: 04/24/17 11:56 Dose: 100 mg Gabapentin (Neurontin) 300 mg PO BID [facility] PRN Reason: Protocol Last Admin: 04/24/17 11:56 Dose: 300 mg Vancomycin HCl (Vancomycin 1gm) 1 gm in 250 mls @ 167 mls/hr IVPB Q12 [facility] PRN Reason: Protocol Last Admin: 04/24/17 12:06 Dose: 167 mls/hr Sodium Chloride (Sodium Chloride 0.9%) 1,000 mls @ 100 mls/hr IV .Q10H [facility] Last Admin: 04/23/17 22:20 Dose: 100 mls/hr Meropenem (Merrem Iv 1 Gm Premix) 50 mls @ 100 mls/hr IVPB Q8 [facility] PRN Reason: Protocol Stop: 05/01/17 22:01 Last Admin: 04/24/17 14:47 Dose: 100 mls/hr Ibuprofen (Motrin Tab) 400 mg PO Q6H PRN PRN Reason: Pain, Mild (1-3) Multivitamins/Minerals (Therapeutic-M Tab) 1 tab PO 0800 [facility] Last Admin: 04/24/17 09:01 Dose: 1 tab Pantoprazole Sodium (Protonix Ec Tab) 40 mg PO ACB [facility] Last Admin: 04/24/17 09:01 Dose: 40 mg Warfarin Sodium (Coumadin) 5 mg PO 1800 [facility] PRN Reason: Protocol Last Admin: 04/23/17 19:40 Dose: Not Given Zinc Sulfate (Zinc Sulfate 220 Mg Cap) 220 mg PO DAILY [facility] Last Admin: 04/24/17 11:56 Dose: 220 mg - Labs Labs: 04/24/17 06:45 04/24/17 06:45 PT 13.3 SECONDS (9.4-12.5) H 04/24/17 06:45 INR 1.15 (0.93-1.08) H 04/24/17 06:45 APTT 35.5 Seconds (25.1-36.5) 04/24/17 06:45 Attending/Attestation - Attestation I have personally seen and examined this patient.: Yes I have fully participated in the care of the patient.: Yes I have reviewed all pertinent clinical information, including history, physical exam and plan: Yes Notes (Text): 04/24/17 17:44 attending note; Patient seen and examined with resident. Patient is a 52-year-old male with a past medical history of spinal abscess/ paraplegia and sacral decubitus ulcer, colostomy, chronic Mackenzie catheter is admitted for sacral decubitus ulcer. X-ray showed degenerative change. Status post debridement by surgery. Wound VAC will be placed today. Started back on Lovenox and Coumadin. First wound culture grew Acinetobacter and providentia. second wound culture grew Enterococcus faecalis and gram-positive cocci. Case discussed with ID in detail. Started on by mouth Zyvox. PT evaluation Appreciated. Patient needs long-term wound VAC. Case discussed with patient case coordinator for discharge planning. Place new wound VAC on Thursday on discharge home. Patient will get visiting nurse services next Thursday. Upon discharge the patient will follow-up with PMD . the patient needs close outpatient wound care follow-up.
--- NOTE | 2017-04-24 19:13 | CP.PCM.PN ---
Subjective - Date & Time of Evaluation Date of Evaluation: 04/24/17 Time of Evaluation: 10:15 - Subjective Subjective: Comfortable, no fevers, not in distress. Objective - Vital Signs/Intake and Output Vital Signs (last 24 hours): Temp Pulse Resp BP Pulse Ox 98.3 F 74 18 126/70 97 04/24/17 04:54 04/24/17 04:54 04/24/17 04:54 04/24/17 04:54 04/24/17 04:54 Intake and Output: 04/24/17 04/24/17 06:59 18:59 Intake Total 1800 Output Total 2400 Balance -600 - Medications Medications: Current Medications Acetaminophen (Tylenol 325mg Tab) 650 mg PO Q4 PRN PRN Reason: Fever >100.4 F Ascorbic Acid (Vitamin C 500 Mg Tab) 500 mg PO DAILY [facility] Last Admin: 04/23/17 10:07 Dose: 500 mg Baclofen (Lioresal) 20 mg PO BID [facility] Last Admin: 04/23/17 17:04 Dose: 20 mg Collagenase (Santyl) 0 gm TOP DAILY [facility] Diphenhydramine HCl (Benadryl) 25 mg PO Q6 PRN PRN Reason: Itching / Pruritus Last Admin: 04/22/17 12:29 Dose: 25 mg Enoxaparin Sodium (Lovenox) 100 mg SC Q12H [facility] PRN Reason: Protocol Last Admin: 04/24/17 01:15 Dose: 100 mg Gabapentin (Neurontin) 300 mg PO BID [facility] PRN Reason: Protocol Last Admin: 04/23/17 17:04 Dose: 300 mg Vancomycin HCl (Vancomycin 1gm) 1 gm in 250 mls @ 167 mls/hr IVPB Q12 [facility] PRN Reason: Protocol Last Admin: 04/23/17 22:33 Dose: 167 mls/hr Sodium Chloride (Sodium Chloride 0.9%) 1,000 mls @ 100 mls/hr IV .Q10H [facility] Last Admin: 04/23/17 22:20 Dose: 100 mls/hr Meropenem (Merrem Iv 1 Gm Premix) 50 mls @ 100 mls/hr IVPB Q8 [facility] PRN Reason: Protocol Stop: 05/01/17 22:01 Last Admin: 04/24/17 05:58 Dose: 100 mls/hr Ibuprofen (Motrin Tab) 400 mg PO Q6H PRN PRN Reason: Pain, Mild (1-3) Multivitamins/Minerals (Therapeutic-M Tab) 1 tab PO 0800 [facility] Last Admin: 04/24/17 09:01 Dose: 1 tab Pantoprazole Sodium (Protonix Ec Tab) 40 mg PO ACB [facility] Last Admin: 04/24/17 09:01 Dose: 40 mg Warfarin Sodium (Coumadin) 5 mg PO 1800 [facility] PRN Reason: Protocol Last Admin: 04/23/17 19:40 Dose: Not Given Zinc Sulfate (Zinc Sulfate 220 Mg Cap) 220 mg PO DAILY [facility] Last Admin: 04/23/17 10:07 Dose: 220 mg - Labs Labs: 04/24/17 06:45 04/24/17 06:45 PT 13.3 SECONDS (9.4-12.5) H 04/24/17 06:45 INR 1.15 (0.93-1.08) H 04/24/17 06:45 APTT 35.5 Seconds (25.1-36.5) 04/24/17 06:45 - Constitutional Appears: Non-toxic, Chronically Ill - Head Exam Head Exam: NORMAL INSPECTION - ENT Exam ENT Exam: Mucous Membranes Moist - Neck Exam Neck Exam: absent: Meningismus - Respiratory Exam Respiratory Exam: Decreased Breath Sounds - Cardiovascular Exam Cardiovascular Exam: +S1, +S2 - GI/Abdominal Exam GI & Abdominal Exam: Soft. absent: Tenderness Assessment and Plan - Assessment and Plan (Free Text) Plan: Assessment sacral decubitus infection S/P colostomy POD #3 history of epidural abscess secondary to Strep pneumoniae with associated cord compression and lower extremity paralysis and neurogenic bladder S/P neurosurgery for abscess drainage and laminectomy history of partial small bowel obstruction significant smoking history alcohol abuse obesity with BMI 40 Plan initial wound cx was just a swab showing Acinetobacter, but deeper cultures are growing gram positive cocci (during debridement) - follow up final wound cx results - continue Vancomycin and Merrem for now discussed with Dr. Piedra
[2017-04-24] MEDS: Sodium Chloride 0.9% 1,000 ML IV SCH (19:52)
[2017-04-25] MEDS: Enoxaparin 100 mg Syringe SC SCH ×2 (02:33→12:51)
[2017-04-25] MEDS: Meropenem IV 1 gm in NS 50 ML IVPB SCH ×3 (05:35→21:27)
[2017-04-25] MEDS: Sodium Chloride 0.9% 1,000 ML IV SCH ×2 (05:38→23:11)
[2017-04-25 06:55] LABS: BASO # 0.02 K/mm3 (0.0-2.0); BASO % 0.5 % (0.0-3.0); EOS # 0.2 (0.0-0.7); EOS % 4.8 % (1.5-5.0); GRAN # 1.93 (1.4-6.5); GRAN % 51.6 % (50.0-68.0); HEMOGLOBIN 10.2 g/dL (14.0-18.0); LYMPH # 1.2 (1.2-3.4); LYMPH % 32.4 % (22.0-35.0); MEAN CELL VOLUME 82.3 fl (80.0-105.0); MEAN CORPUSCULAR HEMOGLOBIN 25.5 pg (25.0-35.0); MEAN PLATELET VOLUME 11.3 fl (7.0-11.0); MONO # 0.4 (0.1-0.6); MONO % 10.7 % (1.0-6.0); RED CELL DISTRIBUTION WIDTH 15.3 % (11.5-14.5); WHITE BLOOD COUNT 3.7 10^3/ul (4.5-11.0)
[2017-04-25 07:01] LABS: INR 1.14 (0.93-1.08); PARTIAL THROMBOPLASTIN TIME 31.7 Seconds (25.1-36.5); PROTHROMBIN TIME 13.1 SECONDS (9.4-12.5)
[2017-04-25 07:29] LABS: ALB/GLOB RATIO 0.9 (1.1-1.8); ALBUMIN 3.3 g/dL (3.0-4.8); ALT/SGPT 33 U/L (7-56); AST/SGOT 24 U/L (17-59); BLOOD UREA NITROGEN 11 mg/dL (7-21); CALCIUM 9.5 mg/dL (8.4-10.5); GFR AFRICAN-AMERICAN > 60; GFR NON-AFRICAN AMERICAN > 60
[2017-04-25] MEDS: Multivitamin With Minerals Tab PO SCH (08:33)
[2017-04-25] MEDS: Pantoprazole 40 mg EC Tab PO SCH (08:33)
[2017-04-25] MEDS: Collagenase 250 Units/gm Ointment(30 gm) TOP SCH (09:52)
[2017-04-25] MEDS: Vancomycin 1gm in NS 250ml 1 GM/250 ML BAG IVPB SCH ×2 (09:52→21:26)
--- NOTE | 2017-04-25 10:15 | CP.PCM.PN ---
<Paul Cummings - Last Filed: 04/25/17 16:45> Subjective - Date & Time of Evaluation Date of Evaluation: 04/25/17 Time of Evaluation: 10:15 - Subjective Subjective: Paul Cummings PGY1 IM Progress Note Patient was seen and examined at bedside. He is feeling better, and is educated about the plan for his discharge. Patient states he would like to continue seeing Dr. Dominguez instead of seeing a physician who makes home visits. Patient denies fevers/chills, n/v/d, chest pain or shortness of breath. Objective - Vital Signs/Intake and Output Vital Signs (last 24 hours): Temp Pulse Resp BP Pulse Ox 98.3 F 74 16 126/70 97 04/24/17 04:54 04/24/17 04:54 04/24/17 22:00 04/24/17 04:54 04/24/17 04:54 Intake and Output: 04/25/17 04/25/17 06:59 18:59 Intake Total 1200 Output Total 3400 Balance -2200 - Medications Medications: Current Medications Acetaminophen (Tylenol 325mg Tab) 650 mg PO Q4 PRN PRN Reason: Fever >100.4 F Last Admin: 04/24/17 11:59 Dose: 650 mg Ascorbic Acid (Vitamin C 500 Mg Tab) 500 mg PO DAILY [facility] Last Admin: 04/25/17 09:51 Dose: 500 mg Baclofen (Lioresal) 20 mg PO BID [facility] Last Admin: 04/25/17 09:51 Dose: 20 mg Collagenase (Santyl) 0 gm TOP DAILY [facility] Last Admin: 04/25/17 09:52 Dose: 1 oin Diphenhydramine HCl (Benadryl) 25 mg PO Q6 PRN PRN Reason: Itching / Pruritus Last Admin: 04/22/17 12:29 Dose: 25 mg Enoxaparin Sodium (Lovenox) 100 mg SC Q12H [facility] PRN Reason: Protocol Last Admin: 04/25/17 02:33 Dose: 100 mg Gabapentin (Neurontin) 300 mg PO BID [facility] PRN Reason: Protocol Last Admin: 04/25/17 09:51 Dose: 300 mg Vancomycin HCl (Vancomycin 1gm) 1 gm in 250 mls @ 167 mls/hr IVPB Q12 [facility] PRN Reason: Protocol Last Admin: 04/25/17 09:52 Dose: 167 mls/hr Sodium Chloride (Sodium Chloride 0.9%) 1,000 mls @ 100 mls/hr IV .Q10H [facility] Last Admin: 04/25/17 05:38 Dose: 100 mls/hr Meropenem (Merrem Iv 1 Gm Premix) 50 mls @ 100 mls/hr IVPB Q8 [facility] PRN Reason: Protocol Stop: 05/01/17 22:01 Last Admin: 04/25/17 05:35 Dose: 100 mls/hr Ibuprofen (Motrin Tab) 400 mg PO Q6H PRN PRN Reason: Pain, Mild (1-3) Multivitamins/Minerals (Therapeutic-M Tab) 1 tab PO 0800 [facility] Last Admin: 04/25/17 08:33 Dose: 1 tab Pantoprazole Sodium (Protonix Ec Tab) 40 mg PO ACB [facility] Last Admin: 04/25/17 08:33 Dose: 40 mg Warfarin Sodium (Coumadin) 7.5 mg PO 1800 [facility] PRN Reason: Protocol Zinc Sulfate (Zinc Sulfate 220 Mg Cap) 220 mg PO DAILY [facility] Last Admin: 04/25/17 09:51 Dose: 220 mg - Labs Labs: 04/25/17 06:30 04/25/17 06:30 PT 13.1 SECONDS (9.4-12.5) H 04/25/17 06:30 INR 1.14 (0.93-1.08) H 04/25/17 06:30 APTT 31.7 Seconds (25.1-36.5) 04/25/17 06:30 - Additional Findings Additional findings: - Constitutional Appears: Well, Non-toxic, No Acute Distress - Head Exam Head Exam: NORMAL INSPECTION - Eye Exam Eye Exam: EOMI, Normal appearance - ENT Exam ENT Exam: Mucous Membranes Dry - Neck Exam Neck Exam: Normal Inspection - Respiratory Exam Respiratory Exam: Clear to Ausculation Bilateral, NORMAL BREATHING PATTERN. absent: Rales, Rhonchi, Wheezes - Cardiovascular Exam Cardiovascular Exam: RRR, +S1, +S2 - GI/Abdominal Exam GI & Abdominal Exam: Soft, Normal Bowel Sounds. absent: Distended, Tenderness Additional comments: colostomy bag in place - Extremities Exam Extremities Exam: absent: Full ROM (paraplegic; rigidity noted) Additional comments: L heel pressure ulcer properly dressed and in multipodus offloading boot no pressure ulcers on R heel - Back Exam Additional comments: wound vac in place (not full, draining very little) - Neurological Exam Neurological Exam: Alert, Awake, Oriented x3 Neuro motor strength exam: Left Upper Extremity: 5, Right Upper Extremity: 5, Left Lower Extremity: 2/1, Right Lower Extremity: 2/1 - Psychiatric Exam Psychiatric exam: Normal Affect, Normal Mood - Skin Skin Exam: Normal Color, Warm Additional comments: noted as above Assessment and Plan - Assessment and Plan (Free Text) Assessment: 52 year old male with a history of paraplegia s/p spinal abscess, laminectomy, DVT in right lower extremity on Warfarin who presented with complaints of malodorous discharge and ulceration from right superior gluteal wound x1 week and heel ulcer. Buttock sample from surgical bedside debridement is growing enterococcus faecalis and a second gram positive cocci (pending). Prior wound culture (04/21) from ED was a swab and likely inaccurate, per ID. Blood cultures negative x 48hrs and procal is low. Medical team had discussion with several groups today: 1. Account Administrator and Wound care nurse regarding wound vac placement and maintenance. - It is important check PT/INR on Thursday04/27/17 to make sure that patient has been properly bridged to Coumadin from Lovenox; if INR < 2, Patient should take 2 pills of Coumadin 5mg for two days then continue 5mg and follow up with Thursday labs. Otherwise, if INR is 2-3, PT/INR may be checked on Thursday05/01/17. - Visiting nurse should be changing dressing around wound vac as well as maintaining clean dressing around L heel ulcer every 4-5 days. - Mackenzie catheter should be removed and a new sterile one placed every 4 weeks after being discharged from [facility]. 2. ID recommends Zyvox PO for 2 weeks as antibiotics, but prefer to wait for final culture results. 3. Surgery will be available over the weekend, and will place portable home wound vac on patient Thursday and recommend sterile NS wet-to-dry alternate dressing to site if wound vac is to malfunction for any reason. 4. Podiatry is following patient inhouse but cleared patient for discharge Plan: 1. Right sacral ulcer - General Surgery consulted; recommends bedside debridement w/ wound vac and continue with santyl dressings, will place home wound vac on Thursday - Infectious disease consulted, recommend 2 weeks of Zyvox PO on discharge - cont Merrem while inpatient - cont vitamin C, MV, and Zinc - Blood cultures negative - wound cultures growing enterococcus faecalis and another gram positive cocci; this sample was post surgical bedside debridement. Prior culture growing providencia rettgeri and acinetobacter baumannii that is multi-drug resistant was likely a swab sample from ED and likely contaminated per ED. - patient remains afebrile and with no WBC elevation, clinically doing well - Sacral and Pelvic X-ray showed no acute displaced fracture nor dislocation. Minimal degenerative osteoarthritis both hip joints with heterotopic bone changes left greater than right. - wound care nurse providing wound care - Regular diet ordered - SW consulted for wound vac 2. Left foot wound - Podiatry consulted, recommend clean dressing upon discharge and multipodus offloading boot at all times - wound care consulted - Fasting lipid panel ordered; results pending 3. Hx DVT - bridging Lovenox to Coumadin - Lovenox 100mg Q12 to Coumadin 5mg daily - INR subtherapeutic, so Coumading 7.5mg given today 4. Hx Neuropathy - Continue baclofen and neurontin - No further intervention at this time 5. DVT/GI prophylaxis - Protonix for GI PPX - Coumadin and SCDs for DVT PPX Patient was seen, examined and discussed with attending, Dr. Dorothea Cummings PGY1 Pager # [phone] <Tobin Piedra - Last Filed: 04/26/17 14:40> Objective - Vital Signs/Intake and Output Vital Signs (last 24 hours): Temp Pulse Resp BP Pulse Ox 97.8 F 52 L 20 123/74 96 04/26/17 06:00 04/26/17 06:00 04/26/17 06:00 04/26/17 06:00 04/26/17 06:00 Intake and Output: 04/26/17 04/26/17 06:59 18:59 Intake Total 2030 Output Total 3600 Balance -1570 - Medications Medications: Current Medications Acetaminophen (Tylenol 325mg Tab) 650 mg PO Q4 PRN PRN Reason: Fever >100.4 F Last Admin: 04/24/17 11:59 Dose: 650 mg Ascorbic Acid (Vitamin C 500 Mg Tab) 500 mg PO DAILY [facility] Last Admin: 04/26/17 11:41 Dose: 500 mg Baclofen (Lioresal) 20 mg PO BID [facility] Last Admin: 04/26/17 11:41 Dose: 20 mg Collagenase (Santyl) 0 gm TOP DAILY [facility] Last Admin: 04/26/17 11:31 Dose: 1 oin Diphenhydramine HCl (Benadryl) 25 mg PO Q6 PRN PRN Reason: Itching / Pruritus Last Admin: 04/22/17 12:29 Dose: 25 mg Enoxaparin Sodium (Lovenox) 100 mg SC Q12H [facility] PRN Reason: Protocol Last Admin: 04/26/17 11:41 Dose: 100 mg Gabapentin (Neurontin) 300 mg PO BID [facility] PRN Reason: Protocol Last Admin: 04/26/17 11:41 Dose: 300 mg Vancomycin HCl (Vancomycin 1gm) 1 gm in 250 mls @ 167 mls/hr IVPB Q12 [facility] PRN Reason: Protocol Last Admin: 04/26/17 11:42 Dose: 167 mls/hr Sodium Chloride (Sodium Chloride 0.9%) 1,000 mls @ 100 mls/hr IV .Q10H [facility] Last Admin: 04/25/17 23:11 Dose: 100 mls/hr Meropenem (Merrem Iv 1 Gm Premix) 50 mls @ 100 mls/hr IVPB Q8 [facility] PRN Reason: Protocol Stop: 05/01/17 22:01 Last Admin: 04/26/17 13:56 Dose: 100 mls/hr Ibuprofen (Motrin Tab) 400 mg PO Q6H PRN PRN Reason: Pain, Mild (1-3) Multivitamins/Minerals (Therapeutic-M Tab) 1 tab PO 0800 [facility] Last Admin: 04/26/17 08:43 Dose: 1 tab Pantoprazole Sodium (Protonix Ec Tab) 40 mg PO ACB [facility] Last Admin: 04/26/17 08:43 Dose: 40 mg Warfarin Sodium (Coumadin) 10 mg PO 1200 [facility] PRN Reason: Protocol Last Admin: 04/26/17 11:41 Dose: 10 mg Zinc Sulfate (Zinc Sulfate 220 Mg Cap) 220 mg PO DAILY [facility] Last Admin: 04/26/17 11:40 Dose: 220 mg - Labs Labs: 04/26/17 06:25 04/26/17 06:25 PT 13.3 SECONDS (9.4-12.5) H 04/26/17 06:25 INR 1.15 (0.93-1.08) H 04/26/17 06:25 APTT 35.1 Seconds (25.1-36.5) 04/26/17 06:25 Attending/Attestation - Attestation I have personally seen and examined this patient.: Yes I have fully participated in the care of the patient.: Yes I have reviewed all pertinent clinical information, including history, physical exam and plan: Yes Notes (Text): 04/26/17 14:39 attending note; Patient seen and examined with resident. Patient is a 52-year-old male with a past medical history of spinal abscess/ paraplegia and sacral decubitus ulcer, colostomy, chronic Mackenzie catheter is admitted for sacral decubitus ulcer. X-ray showed degenerative change. Status post debridement by surgery. Wound VAC will be placed today. Started back on Lovenox and Coumadin. First wound culture grew Acinetobacter and providentia. second wound culture grew Enterococcus faecalis and gram-positive cocci. Case discussed with ID in detail. Started on by mouth Zyvox. PT evaluation Appreciated. Patient needs long-term wound VAC. Case discussed with renal case manager for discharge planning. Place new wound VAC on Thursday and discharge home. Patient will get visiting nurse services next Thursday. PT/INR check on thursday and adjust coumadin dosage. Upon discharge the patient will follow-up with PMD . the patient needs close outpatient wound care follow-up.
--- NOTE | 2017-04-25 12:53 | CP.PCM.PN ---
<Timothy Morton - Last Filed: 04/25/17 12:49> Subjective - Date & Time of Evaluation Date of Evaluation: 04/25/17 Time of Evaluation: 09:30 - Subjective Subjective: 52 y/o male seen at bedside with attending, Dr. Mojica, for left heel ulceration. Pt denies any acute events overnight and is feeling generally well. Denies and recent F/C/N/V/CP/SOB. Denies any pedal pain at this time. Multipodus boot is on to desired area at this time. Objective - Vital Signs/Intake and Output Vital Signs (last 24 hours): Temp Pulse Resp BP Pulse Ox 98.3 F 74 16 126/70 97 04/24/17 04:54 04/24/17 04:54 04/24/17 22:00 04/24/17 04:54 04/24/17 04:54 Intake and Output: 04/25/17 04/25/17 06:59 18:59 Intake Total 1200 Output Total 3400 Balance -2200 - Medications Medications: Current Medications Acetaminophen (Tylenol 325mg Tab) 650 mg PO Q4 PRN PRN Reason: Fever >100.4 F Last Admin: 04/24/17 11:59 Dose: 650 mg Ascorbic Acid (Vitamin C 500 Mg Tab) 500 mg PO DAILY [facility] Last Admin: 04/25/17 09:51 Dose: 500 mg Baclofen (Lioresal) 20 mg PO BID [facility] Last Admin: 04/25/17 09:51 Dose: 20 mg Collagenase (Santyl) 0 gm TOP DAILY [facility] Last Admin: 04/25/17 09:52 Dose: 1 oin Diphenhydramine HCl (Benadryl) 25 mg PO Q6 PRN PRN Reason: Itching / Pruritus Last Admin: 04/22/17 12:29 Dose: 25 mg Enoxaparin Sodium (Lovenox) 100 mg SC Q12H [facility] PRN Reason: Protocol Last Admin: 04/25/17 02:33 Dose: 100 mg Gabapentin (Neurontin) 300 mg PO BID [facility] PRN Reason: Protocol Last Admin: 04/25/17 09:51 Dose: 300 mg Vancomycin HCl (Vancomycin 1gm) 1 gm in 250 mls @ 167 mls/hr IVPB Q12 [facility] PRN Reason: Protocol Last Admin: 04/25/17 09:52 Dose: 167 mls/hr Sodium Chloride (Sodium Chloride 0.9%) 1,000 mls @ 100 mls/hr IV .Q10H [facility] Last Admin: 04/25/17 05:38 Dose: 100 mls/hr Meropenem (Merrem Iv 1 Gm Premix) 50 mls @ 100 mls/hr IVPB Q8 [facility] PRN Reason: Protocol Stop: 05/01/17 22:01 Last Admin: 04/25/17 05:35 Dose: 100 mls/hr Ibuprofen (Motrin Tab) 400 mg PO Q6H PRN PRN Reason: Pain, Mild (1-3) Multivitamins/Minerals (Therapeutic-M Tab) 1 tab PO 0800 [facility] Last Admin: 04/25/17 08:33 Dose: 1 tab Pantoprazole Sodium (Protonix Ec Tab) 40 mg PO ACB [facility] Last Admin: 04/25/17 08:33 Dose: 40 mg Warfarin Sodium (Coumadin) 7.5 mg PO 1800 [facility] PRN Reason: Protocol Zinc Sulfate (Zinc Sulfate 220 Mg Cap) 220 mg PO DAILY [facility] Last Admin: 04/25/17 09:51 Dose: 220 mg - Labs Labs: 04/25/17 06:30 04/25/17 06:30 PT 13.1 SECONDS (9.4-12.5) H 04/25/17 06:30 INR 1.14 (0.93-1.08) H 04/25/17 06:30 APTT 31.7 Seconds (25.1-36.5) 04/25/17 06:30 - Constitutional Appears: Well, Non-toxic, No Acute Distress - Extremities Exam Additional comments: Left Lower extremity focused examination: No strikethrough with minor necrotic tissue noted to L heel dressing. Vasc: DP/PT pulses palpable 2/4 B/L. Temperature gradient warm to warm B/L. CFT < 3 sec to all digits. Minimal non-pitting edema localized to L heel. Neuro: Protective sensation grossly diminished B/L Derm: L posterolateral heel exhibits 2.7cm x 1.9cm x 0.2cm ulceration with mixed fibrotic and granular base. Wound borders exhibit mild tissue masceration. No jose manuel wound erythema, no drainage, no malodor, no probe to bone, no fluctuance. Ortho: Involuntary muscle spasms noted to B/L LE, L>R. No tenderness to palpation of L heel at site of pressure ulcerations. Mild tenderness upon elevation of L leg. - Neurological Exam Neurological Exam: Alert, Awake, Oriented x3 - Psychiatric Exam Psychiatric exam: Normal Affect, Normal Mood Assessment and Plan - Assessment and Plan (Free Text) Assessment: 52 y/o male with left heel ulceration secondary to paraplegia with bed bound status Plan: Pt seen and evaluated at bedside with attending Dr. Mojica. Labs and vitals reviewed- afebrile, WBC 3.7. Wound to left heel cleansed with saline and dressed with Santyl and Optifoam. Wound does not appear clinically infected at this time Continue IV abx as per ID Continue Multipodus boot use, must be worn at all times in bed. Podiatry will continue to follow while in house <Adair Mojica - Last Filed: 04/28/17 11:56> Objective - Vital Signs/Intake and Output Vital Signs (last 24 hours): Temp Pulse Resp BP Pulse Ox 98 F 51 L 20 107/71 96 04/26/17 08:00 04/26/17 08:00 04/26/17 08:00 04/26/17 08:00 04/26/17 06:00 - Labs Labs: 04/26/17 06:25 04/26/17 06:25 PT 13.3 SECONDS (9.4-12.5) H 04/26/17 06:25 INR 1.15 (0.93-1.08) H 04/26/17 06:25 APTT 35.1 Seconds (25.1-36.5) 04/26/17 06:25 Attending/Attestation - Attestation I have personally seen and examined this patient.: Yes I have fully participated in the care of the patient.: Yes I have reviewed all pertinent clinical information, including history, physical exam and plan: Yes
--- NOTE | 2017-04-25 19:48 | PN ---
DATE: 04/25/2017 SUBJECTIVE: The patient is seen earlier this morning in bed, in no acute distress, doing well. PHYSICAL EXAMINATION: VITAL SIGNS: Temperature is 98, blood pressure is 120/70, respiratory rate of 18. HEENT: Unremarkable. NECK: Supple. LUNGS: Have decreased breath sounds. HEART: Normal S1 and S2. ABDOMEN: Soft, nontender. LABORATORY DATA: Laboratory examination reveals a white count of 3.7, hemoglobin of 10.8, platelets 174. Chemistry reveals a BUN of 11, creatinine of 0.6, procalcitonin of 0.05. Microbiology reveals buttock culture has Acinetobacter baumannii, Providencia rettgeri from the abscess of the sacral area and the buttocks culture Enterococcus fecalis and group B strep. The patient is on meropenem and vancomycin. ASSESSMENT AND PLAN: This is a 52-year-old male, seen earlier this morning with sacral decubitus infection, status post colostomy, postop day #4, history of epidural abscess secondary to Strep pneumonia associated with cord compression, lower extremity paralysis and neurogenic bladder, status post neurosurgery for abscess. drainage and laminectomy, history of partial small bowel obstruction, significant smoking history, alcohol abuse, obesity with the BMI of 40, currently on vancomycin and meropenem. Long-term prognosis is poor. Colt Coronel MD
[2017-04-26] MEDS: Enoxaparin 100 mg Syringe SC SCH ×2 (01:49→11:41)
[2017-04-26] MEDS: Meropenem IV 1 gm in NS 50 ML IVPB SCH ×2 (05:50→13:56)
[2017-04-26 06:46] VITALS: RESP 20; O2SAT 96
[2017-04-26 07:43] LABS: BASO # 0.01 K/mm3 (0.0-2.0); BASO % 0.2 % (0.0-3.0); EOS # 0.1 (0.0-0.7); EOS % 2.7 % (1.5-5.0); GRAN # 2.7 (1.4-6.5); HEMOGLOBIN 10.3 g/dL (14.0-18.0); LYMPH # 1.5 (1.2-3.4); LYMPH % 30.7 % (22.0-35.0); MEAN CORPUSCULAR HEMOGLOBIN 25.1 pg (25.0-35.0); MEAN CORPUSCULAR HGB CONC 30.7 g/dl (31.0-37.0); MEAN PLATELET VOLUME 11.9 fl (7.0-11.0); MONO # 0.5 (0.1-0.6); MONO % 10.4 % (1.0-6.0); RBC 4.1 10^6/uL (3.5-6.1); RED CELL DISTRIBUTION WIDTH 15.4 % (11.5-14.5); WHITE BLOOD COUNT 4.8 10^3/ul (4.5-11.0)
[2017-04-26 07:56] LABS: ALBUMIN 3.3 g/dL (3.0-4.8); ALT/SGPT 42 U/L (7-56); AST/SGOT 31 U/L (17-59); BLOOD UREA NITROGEN 12 mg/dL (7-21); CALCIUM 9.6 mg/dL (8.4-10.5); GFR AFRICAN-AMERICAN > 60; GFR NON-AFRICAN AMERICAN > 60
[2017-04-26 07:57] LABS: INR 1.15 (0.93-1.08); PARTIAL THROMBOPLASTIN TIME 35.1 Seconds (25.1-36.5); PROTHROMBIN TIME 13.3 SECONDS (9.4-12.5)
[2017-04-26] MEDS: Multivitamin With Minerals Tab PO SCH (08:43)
[2017-04-26] MEDS: Pantoprazole 40 mg EC Tab PO SCH (08:43)
--- NOTE | 2017-04-26 10:40 | CP.PCM.PN ---
Subjective - Date & Time of Evaluation Date of Evaluation: 04/26/17 Time of Evaluation: 07:30 - Subjective Subjective: Surgery Progress note. Dr. Askew Pt seen and examined at bedside. No acute events overnight. No F/C. No N/V/D. No New complaints. Wound vac in place, no air leaks. We will change today to home wound vac for d/c planning. Objective - Vital Signs/Intake and Output Vital Signs (last 24 hours): Temp Pulse Resp BP Pulse Ox 97.8 F 52 L 20 123/74 96 04/26/17 06:00 04/26/17 06:00 04/26/17 06:00 04/26/17 06:00 04/26/17 06:00 Intake and Output: 04/26/17 04/26/17 06:59 18:59 Intake Total 2030 Output Total 3600 Balance -1570 - Medications Medications: Current Medications Acetaminophen (Tylenol 325mg Tab) 650 mg PO Q4 PRN PRN Reason: Fever >100.4 F Last Admin: 04/24/17 11:59 Dose: 650 mg Ascorbic Acid (Vitamin C 500 Mg Tab) 500 mg PO DAILY [facility] Last Admin: 04/25/17 09:51 Dose: 500 mg Baclofen (Lioresal) 20 mg PO BID [facility] Last Admin: 04/25/17 18:58 Dose: 20 mg Collagenase (Santyl) 0 gm TOP DAILY [facility] Last Admin: 04/25/17 09:52 Dose: 1 oin Diphenhydramine HCl (Benadryl) 25 mg PO Q6 PRN PRN Reason: Itching / Pruritus Last Admin: 04/22/17 12:29 Dose: 25 mg Enoxaparin Sodium (Lovenox) 100 mg SC Q12H [facility] PRN Reason: Protocol Last Admin: 04/26/17 01:49 Dose: 100 mg Gabapentin (Neurontin) 300 mg PO BID [facility] PRN Reason: Protocol Last Admin: 04/25/17 18:58 Dose: 300 mg Vancomycin HCl (Vancomycin 1gm) 1 gm in 250 mls @ 167 mls/hr IVPB Q12 [facility] PRN Reason: Protocol Last Admin: 04/25/17 21:26 Dose: 167 mls/hr Sodium Chloride (Sodium Chloride 0.9%) 1,000 mls @ 100 mls/hr IV .Q10H [facility] Last Admin: 04/25/17 23:11 Dose: 100 mls/hr Meropenem (Merrem Iv 1 Gm Premix) 50 mls @ 100 mls/hr IVPB Q8 [facility] PRN Reason: Protocol Stop: 05/01/17 22:01 Last Admin: 04/26/17 05:50 Dose: 100 mls/hr Ibuprofen (Motrin Tab) 400 mg PO Q6H PRN PRN Reason: Pain, Mild (1-3) Multivitamins/Minerals (Therapeutic-M Tab) 1 tab PO 0800 [facility] Last Admin: 04/26/17 08:43 Dose: 1 tab Pantoprazole Sodium (Protonix Ec Tab) 40 mg PO ACB [facility] Last Admin: 04/26/17 08:43 Dose: 40 mg Warfarin Sodium (Coumadin) 10 mg PO 1200 [facility] PRN Reason: Protocol Zinc Sulfate (Zinc Sulfate 220 Mg Cap) 220 mg PO DAILY [facility] Last Admin: 04/25/17 09:51 Dose: 220 mg - Labs Labs: 04/26/17 06:25 04/26/17 06:25 PT 13.3 SECONDS (9.4-12.5) H 04/26/17 06:25 INR 1.15 (0.93-1.08) H 04/26/17 06:25 APTT 35.1 Seconds (25.1-36.5) 04/26/17 06:25 - Constitutional Appears: Non-toxic, No Acute Distress - Head Exam Head Exam: ATRAUMATIC, NORMAL INSPECTION, NORMOCEPHALIC - ENT Exam ENT Exam: Mucous Membranes Moist - Respiratory Exam Respiratory Exam: NORMAL BREATHING PATTERN. absent: Accessory Muscle Use, Respiratory Distress - GI/Abdominal Exam GI & Abdominal Exam: Soft. absent: Guarding, Rigid, Tenderness - Extremities Exam Additional comments: RIght ischial wound with wound vac changed today. No tenderness to palpation, no discharge. - Neurological Exam Neurological Exam: Alert, Awake, Oriented x3 - Psychiatric Exam Psychiatric exam: Normal Affect, Normal Mood - Skin Skin Exam: Dry, Normal Color, Warm Assessment and Plan - Assessment and Plan (Free Text) Assessment: 52yo M with right ischial pressure wound. S/P bedside sharp debridement and negative pressure therapy initiated on 04/23/17. - Portable home wound vac placed this morning - Patient is cleared for discharge from surgical standpoint - Continue wound vac changes q3 days by [facility] - Follow up with Dr. Askew in office, call for appointment Further recs as per Dr. Azar Cash PGY1 surgery pager: [phone]
[2017-04-26] MEDS: Collagenase 250 Units/gm Ointment(30 gm) TOP SCH (11:31)
[2017-04-26] MEDS: Vancomycin 1gm in NS 250ml 1 GM/250 ML BAG IVPB SCH (11:42)
--- NOTE | 2017-04-26 14:22 | PN ---
DATE: 04/26/2017 SUBJECTIVE: Patient is in bed, in no acute distress. PHYSICAL EXAMINATION: VITAL SIGNS: Temperature of 98, blood pressure is 120/70, respiratory rate of 18. HEENT: Unremarkable. NECK: Supple. LUNGS: Decreased breath sounds. HEART: Normal S1, S2. ABDOMEN: Soft, nontender. No organomegaly. No rebound or guarding. No masses. LABORATORY DATA: Reveals the white count is 4.8, hemoglobin of 10, platelets of 187, coagulation is noted. Chemistries reveals a BUN of 12, creatinine of 0.7. Microbiology reveals the patient's blood cultures are no growth. Buttocks cultures noted and abscess culture is noted to be both Citrobacter, Providencia, Enterococcus and beta-hemolytic strep and currently the patient is on vancomycin and meropenem. ASSESSMENT AND PLAN: A 52-year-old male seen earlier this morning with sacral decubiti infection; status post colostomy, postprocedure day #5; history of Streptococcus pneumoniae; epidural abscess; cord compression; lower extremity paralysis and neurogenic bladder, on vancomycin and meropenem. Local wound care and now wound vacuum-assisted closure. We will follow. Colt Coronel MD
[2017-04-26 15:45] VITALS: BP 107/71; PULSE 51; TEMP 98
--- NOTE | 2017-04-26 17:11 | CP.PCM.DIS ---
Provider - Provider Date of Admission: 04/21/17 22:30 Attending physician: Tobin Piedra MD Primary care physician: Ishan Dominguez MD Time Spent in preparation of Discharge (in minutes): 45 Diagnosis - Discharge Diagnosis (1) Sacral decubitus ulcer Status: Acute (2) Decubitus ulcer of left foot Status: Acute (3) Paraplegia Status: Chronic (4) DVT (deep venous thrombosis) Status: Chronic Hospital Course - Lab Results Lab Results: Micro Results 04/22/17 12:50 Buttock Gram Stain - Final 04/22/17 12:50 Buttock Wound Culture - Final Enterococcus Faecalis Beta Hemolytic Strep Group B Most Recent Lab Values WBC 4.8 10^3/ul (4.5-11.0) D 04/26/17 06:25 RBC 4.10 10^6/uL (3.5-6.1) 04/26/17 06:25 Hgb 10.3 g/dL (14.0-18.0) L 04/26/17 06:25 Hct 33.6 % (42.0-52.0) L 04/26/17 06:25 MCV 82.0 fl (80.0-105.0) 04/26/17 06:25 MCH 25.1 pg (25.0-35.0) 04/26/17 06:25 MCHC 30.7 g/dl (31.0-37.0) L 04/26/17 06:25 RDW 15.4 % (11.5-14.5) H 04/26/17 06:25 Plt Count 187 10^3/uL (120.0-450.0) 04/26/17 06:25 MPV 11.9 fl (7.0-11.0) H 04/26/17 06:25 Gran % 56.0 % (50.0-68.0) 04/26/17 06:25 Lymph % (Auto) 30.7 % (22.0-35.0) 04/26/17 06:25 Meagher % (Auto) 10.4 % (1.0-6.0) H 04/26/17 06:25 Eos % (Auto) 2.7 % (1.5-5.0) 04/26/17 06:25 Baso % (Auto) 0.2 % (0.0-3.0) 04/26/17 06:25 Gran # 2.70 (1.4-6.5) 04/26/17 06:25 Lymph # 1.5 (1.2-3.4) 04/26/17 06:25 Meagher # 0.5 (0.1-0.6) 04/26/17 06:25 Eos # 0.1 (0.0-0.7) 04/26/17 06:25 Baso # 0.01 K/mm3 (0.0-2.0) 04/26/17 06:25 PT 13.3 SECONDS (9.4-12.5) H 04/26/17 06:25 INR 1.15 (0.93-1.08) H 04/26/17 06:25 APTT 35.1 Seconds (25.1-36.5) 04/26/17 06:25 pO2 83 mm/Hg (30-55) H 04/22/17 00:54 VBG pH 7.40 (7.32-7.43) 04/22/17 00:54 VBG pCO2 46.0 (40-60) 04/22/17 00:54 VBG HCO3 28.5 mmol/l (21-28) H 04/22/17 00:54 VBG Total CO2 29.9 mmol.L (22-28) H 04/22/17 00:54 VBG O2 Sat (Calc) 98.4 % (40-65) H 04/22/17 00:54 VBG Base Excess 3.0 mmol/L (0.0-2.0) H 04/22/17 00:54 VBG Potassium 3.7 mmol/L (3.6-5.2) 04/22/17 00:54 Sodium 141.0 mmol/L (132-148) 04/22/17 00:54 Chloride 104.0 mmol/L (98-107) 04/22/17 00:54 Glucose 83 mg/dl (75-110) 04/22/17 00:54 Lactate 1.5 mmol/L (0.7-2.1) 04/22/17 00:54 FiO2 21.0 % 04/22/17 00:54 Sodium 141 mmol/L (132-148) 04/26/17 06:25 Potassium 3.9 mmol/L (3.6-5.0) 04/26/17 06:25 Chloride 105 mmol/L (98-107) 04/26/17 06:25 Carbon Dioxide 26 mmol/L (21-33) 04/26/17 06:25 Anion Gap 13 (10-20) 04/26/17 06:25 BUN 12 mg/dL (7-21) 04/26/17 06:25 Creatinine 0.7 mg/dl (0.8-1.5) L 04/26/17 06:25 Est GFR ( Amer) > 60 04/26/17 06:25 Est GFR (Non-Af Amer) > 60 04/26/17 06:25 POC Glucose (mg/dL) 122 mg/dL (65-110) H 04/25/17 11:13 Random Glucose 88 mg/dL (70-110) 04/26/17 06:25 Calcium 9.6 mg/dL (8.4-10.5) 04/26/17 06:25 Total Bilirubin 0.2 mg/dL (0.2-1.3) 04/26/17 06:25 AST 31 U/L (17-59) 04/26/17 06:25 ALT 42 U/L (7-56) 04/26/17 06:25 Alkaline Phosphatase 68 U/L (38-126) 04/26/17 06:25 Total Protein 6.7 g/dL (5.8-8.3) 04/26/17 06:25 Albumin 3.3 g/dL (3.0-4.8) 04/26/17 06:25 Globulin 3.4 gm/dL 04/26/17 06:25 Albumin/Globulin Ratio 1.0 (1.1-1.8) L 04/26/17 06:25 Triglycerides 97 mg/dL (35-160) 04/22/17 05:00 Cholesterol 166 mg/dL (130-200) 04/22/17 05:00 LDL Cholesterol Direct 102 mg/dL (0-129) 04/22/17 05:00 HDL Cholesterol 31 mg/dL (29-60) 04/22/17 05:00 Procalcitonin < 0.05 NG/ML (0.19-0.49) L 04/22/17 05:00 Venous Blood Potassium 3.7 mmol/L (3.6-5.2) 04/22/17 00:54 - Hospital Course Hospital Course: 52 year old male with a history of paraplegia s/p spinal abscess, laminectomy, DVT in right lower extremity treated with warfarin in 06/2016 who presented to [facility] ED with complaints of malodorous discharge from right superior gluteal wound x1 week. Sacral and Pelvic X-rays showed no acute displaced fracture nor dislocation with minimal degenerative osteoarthritis both hip joints with heterotopic bone changes left greater than right. General surgery and podiatry were consulted. Blood and wound cultures were sent and patient was started on Merren and Vanc. ID was consulted. INR was subtherapeutic but Coumadin was held due to possible surgical intervention. Bedside surgical debridement on surgical decubitus ulcer was performed by surgical team and wound vac was applied. Podiatry managed left foot ulcer. Lovenox bridging to Coumadin was started. SW and wound nurse were consulted for assistance with discharge planning. Patient with educated with all discharge instructions and he is in full understanding. Patient's INR is subtherapeutic on discharge but he is instructed to take a dose of 10mg Coumadin the day after discharge, when a visiting nurse will recheck his INR and inspect his wound vac. Further instructions on INR followup be instructed to patient and communicated to [facility], his preferred pharmacy. Wound dressing will also be managed by them. Wound cultures grew enterococcus faecalis and group B strep; a prior wound culture from superficial swab in ED grew a [id number] bacteria, likely a contaminant. Per ID, patient can be discharged with Zyvox x2 weeks. Visiting nurse should be changing dressing around wound vac as well as maintaining clean dressing around L heel ulcer every 4-5 days. Haque catheter should be removed and a new sterile one placed every 4 weeks after being discharged from [facility] hospital. Patient is advised to follow up with a doctor who makes home visits, however, patient prefers to remain with his PMD. Patient will followup with Dr. Dominguez within 2 weeks. Discharged on Coumading 5mg daily (w/ 10mg the first day) and continued home meds and Zyvox x2 weeks. Medically stable for discharge. Discharge Exam - Head Exam Head Exam: ATRAUMATIC, NORMAL INSPECTION, NORMOCEPHALIC - Eye Exam Eye Exam: EOMI, Normal appearance, PERRL - ENT Exam ENT Exam: Mucous Membranes Moist - Neck Exam Neck exam: Normal Inspection - Respiratory Exam Respiratory Exam: Clear to PA & Lateral, NORMAL BREATHING PATTERN. absent: Rales, Rhonchi, Wheezes - Cardiovascular Exam Cardiovascular Exam: RRR, +S1, +S2 - GI/Abdominal Exam GI & Abdominal Exam: Normal Bowel Sounds, Soft. absent: Distended, Tenderness Additional comments: colostomy bag in place - Exam Additional comments: indwelling haque catheter in palce - Extremities Exam Additional comments: LE paralysis with frequent spasms - Back Exam Back exam: NORMAL INSPECTION Additional comments: wound vac in place dressing applied clean/dry/intact - Neurological Exam Neurological exam: Alert - Psychiatric Exam Psychiatric exam: Normal Affect, Normal Mood - Skin Skin Exam: Normal Color, Warm Discharge Plan - Discharge Medications Prescriptions: Baclofen [Lioresal] 20 mg PO BID #30 tab Gabapentin [Neurontin] 300 mg PO BID #30 cap Linezolid [Zyvox] 600 mg PO Q12 #28 tab Warfarin [Coumadin] 5 mg PO 1800 #30 tab - Follow Up Plan Condition: STABLE Disposition: HOME/ ROUTINE Instructions: Warfarin (By mouth), How to Prevent Pressure Ulcers (DC), Skin Care After Spinal Cord Injury (DC), Pressure Ulcer (DC) Additional Instructions: - please take Coumadin 10mg on Thursday morning and you will have your INR repeated by nurses Thursday; you will be contacted if any adjustments need to be made - your wound vac will be monitored on Thursday and Thursday then maintained every 4- 5 days - your haque catheter is to be replaced every 4-6 weeks - please apply dressing to your foot for healing - please continue your home medications as prescribed - please follow up with Dr. Dominguez within 2 weeks of discharge - If you continue to experience fevers/chills, nausea/vomiting, please return to ER for eval Referrals: Ishan Dominguez MD [Primary Care Provider] -
--- NOTE | 2017-04-26 17:59 | CP.PCM.PN ---
<Timothy Morton - Last Filed: 04/26/17 17:55> Subjective - Date & Time of Evaluation Date of Evaluation: 04/26/17 Time of Evaluation: 12:25 - Subjective Subjective: Podiatry Consult Note- Dr Jalloh 52 y/o male seen at bedside for left heel ulceration. Pt denies any acute events overnight and is feeling generally well. Denies and recent F/C/N/V/CP/ SOB. Denies any pedal pain at this time. Multipodus boot is on to desired area at this time. Objective - Vital Signs/Intake and Output Vital Signs (last 24 hours): Temp Pulse Resp BP Pulse Ox 98 F 51 L 20 107/71 96 04/26/17 08:00 04/26/17 08:00 04/26/17 08:00 04/26/17 08:00 04/26/17 06:00 Intake and Output: 04/26/17 04/26/17 06:59 18:59 Intake Total 2030 780 Output Total 3600 1200 Balance -1570 -420 - Medications Medications: Current Medications Acetaminophen (Tylenol 325mg Tab) 650 mg PO Q4 PRN PRN Reason: Fever >100.4 F Last Admin: 04/24/17 11:59 Dose: 650 mg Ascorbic Acid (Vitamin C 500 Mg Tab) 500 mg PO DAILY [facility] Last Admin: 04/26/17 11:41 Dose: 500 mg Baclofen (Lioresal) 20 mg PO BID [facility] Last Admin: 04/26/17 11:41 Dose: 20 mg Collagenase (Santyl) 0 gm TOP DAILY [facility] Last Admin: 04/26/17 11:31 Dose: 1 oin Diphenhydramine HCl (Benadryl) 25 mg PO Q6 PRN PRN Reason: Itching / Pruritus Last Admin: 04/22/17 12:29 Dose: 25 mg Enoxaparin Sodium (Lovenox) 100 mg SC Q12H DONAL PRN Reason: Protocol Last Admin: 04/26/17 11:41 Dose: 100 mg Gabapentin (Neurontin) 300 mg PO BID DONAL PRN Reason: Protocol Last Admin: 04/26/17 11:41 Dose: 300 mg Vancomycin HCl (Vancomycin 1gm) 1 gm in 250 mls @ 167 mls/hr IVPB Q12 DONAL PRN Reason: Protocol Last Admin: 04/26/17 11:42 Dose: 167 mls/hr Sodium Chloride (Sodium Chloride 0.9%) 1,000 mls @ 100 mls/hr IV .Q10H [facility] Last Admin: 04/25/17 23:11 Dose: 100 mls/hr Meropenem (Merrem Iv 1 Gm Premix) 50 mls @ 100 mls/hr IVPB Q8 DONAL PRN Reason: Protocol Stop: 05/01/17 22:01 Last Admin: 04/26/17 13:56 Dose: 100 mls/hr Ibuprofen (Motrin Tab) 400 mg PO Q6H PRN PRN Reason: Pain, Mild (1-3) Multivitamins/Minerals (Therapeutic-M Tab) 1 tab PO 0800 [facility] Last Admin: 04/26/17 08:43 Dose: 1 tab Pantoprazole Sodium (Protonix Ec Tab) 40 mg PO ACB [facility] Last Admin: 04/26/17 08:43 Dose: 40 mg Warfarin Sodium (Coumadin) 10 mg PO 1200 DONAL PRN Reason: Protocol Last Admin: 04/26/17 11:41 Dose: 10 mg Zinc Sulfate (Zinc Sulfate 220 Mg Cap) 220 mg PO DAILY [facility] Last Admin: 04/26/17 11:40 Dose: 220 mg - Labs Labs: 04/26/17 06:25 04/26/17 06:25 PT 13.3 SECONDS (9.4-12.5) H 04/26/17 06:25 INR 1.15 (0.93-1.08) H 04/26/17 06:25 APTT 35.1 Seconds (25.1-36.5) 04/26/17 06:25 - Constitutional Appears: Well, Non-toxic, No Acute Distress - Extremities Exam Additional comments: Left Lower extremity focused examination: No strikethrough with minor necrotic tissue noted to L heel dressing. Vasc: DP/PT pulses palpable 2/4 B/L. Temperature gradient warm to warm B/L. CFT < 3 sec to all digits. Minimal non-pitting edema localized to L heel. Neuro: Protective sensation grossly diminished B/L Derm: L posterolateral heel exhibits 2.7cm x 1.9cm x 0.2cm ulceration with mixed fibrotic and granular base. Wound borders exhibit mild tissue masceration. No jose manuel wound erythema, no drainage, no malodor, no probe to bone, no fluctuance. Ortho: Involuntary muscle spasms noted to B/L LE, L>R. No tenderness to palpation of L heel at site of pressure ulcerations. Mild tenderness upon elevation of L leg. - Neurological Exam Neurological Exam: Alert, Awake, Oriented x3 - Psychiatric Exam Psychiatric exam: Normal Affect, Normal Mood Assessment and Plan - Assessment and Plan (Free Text) Assessment: 52 y/o male with left heel ulceration secondary to paraplegia with bed bound status Plan: Pt seen and evaluated at bedside. Discussed with attending, Dr. Jalloh. Labs and vitals reviewed- afebrile, WBC 4.8. Wound to left heel cleansed with saline and dressed with Santyl and Optifoam. Wound does not appear clinically infected at this time Continue IV abx as per ID Continue Multipodus boot use, must be worn at all times in bed. Discussed with patient importance of offloading heel and lower legs while in bed at home. Pt to follow-up in [facility] within 5 days. Pt aware he must present weekly in [facility] [place] for follow-up evaluations. Home nursing changes ordered as above. <Patricia Jalloh - Last Filed: 05/01/17 13:56> Objective - Vital Signs/Intake and Output Vital Signs (last 24 hours): Temp Pulse Resp BP Pulse Ox 98 F 51 L 20 107/71 96 04/26/17 08:00 04/26/17 08:00 04/26/17 08:00 04/26/17 08:00 04/26/17 06:00 - Labs Labs: 04/26/17 06:25 04/26/17 06:25 PT 13.3 SECONDS (9.4-12.5) H 04/26/17 06:25 INR 1.15 (0.93-1.08) H 04/26/17 06:25 APTT 35.1 Seconds (25.1-36.5) 04/26/17 06:25 Attending/Attestation - Attestation I have personally seen and examined this patient.: Yes I have fully participated in the care of the patient.: Yes I have reviewed all pertinent clinical information, including history, physical exam and plan: Yes
--- NOTE | 2017-04-28 11:45 | PQF DEBRID ---
This form is a permanent part of the medical record Dr. Askew, Please clarify the bedisde debridement of right superior gluteal ulcer done on ---is it excisional OR non-excisional ? Please indicate the depth. Thank you. Clarification of your documentation is requested to better reflect the severity of illness and intensity of treatment of your patient. Indicators present [x] Documentation of wound care / debridement [] Technique: [] [] Instrument used:[] [] Nature of Tissue Removed:[] [] Appearance of Wound:[] [] Size of Wound: [] [] Depth of Debridement: [] [] Other: [] Location in the medical record that reflects the above clinical findings: [] Other Treatment Provided: [] PHYSICIAN'S RESPONSE Based on your medical judgment, can you further clarify the precise NATURE, DEPTH, EXTENT and / or METHODS of wound debridement utilized in this case: [] EXCISIONAL debridement use of a scalpel / blade to cut away tissue Depth (subcutaneous, fascia, muscle, soft tissue and bone) [] Size of Wound [] NON-EXCISIONAL debridement chemical, scrubbing, trimming with a scissor/ versajet [] Other, please indicate: [] [] If unable to determine, please check the box, sign and date. In responding to this query, please exercise your independent professional judgment. The fact that a question is asked does not imply that any particular answer is desired or expected. Thank you for your clarification on this documentation. If you have any questions please call:[ ] * Thank you, [ ]STELLA TREVINOcounty treasurer ELEANOR
== END 2017-04-26 16:30 | disposition home or self-care (01) | DRG 468 ==
LOC: ED 18:51 → ERH 22:30 → 2A 04-22 14:48
PROVIDERS: ADMIT Internal Medicine; ATTEND Internal Medicine
PROC: 0QB20ZZ Excision of Right Pelvic Bone, Open Approach (ICD-10-PCS; principal; 2017-04-22)
DX: L89.150 Pressure ulcer of sacral region, unstageable (principal); L89.314 Pressure ulcer of right buttock, stage 4; G82.20 Paraplegia, unspecified; G62.9 Polyneuropathy, unspecified; L97.429 Non-pressure chronic ulcer of left heel and midfoot with unspecified severity; N31.9 Neuromuscular dysfunction of bladder, unspecified; I10 Essential (primary) hypertension; B95.2 Enterococcus as the cause of diseases classified elsewhere; B95.1 Streptococcus, group B, as the cause of diseases classified elsewhere; L89.890 Pressure ulcer of other site, unstageable; F10.10 Alcohol abuse, uncomplicated; E66.9 Obesity, unspecified; Z86.718 Personal history of other venous thrombosis and embolism; Z74.01 Bed confinement status; Z79.01 Long term (current) use of anticoagulants; Z93.3 Colostomy status; Z87.891 Personal history of nicotine dependence; Z86.61 Personal history of infections of the central nervous system; Z68.28 Body mass index [BMI] 28.0-28.9, adult

== ENCOUNTER 2017-05-26 10:20 | Inpatient (IN) | payer OTHER ==
[2017-05-26 10:20] VITALS: BMI 28.7
--- NOTE | 2017-05-26 10:32 | ED PDOC ---
Arrival/HPI - General Time Seen by Provider: 05/26/17 10:24 Historian: Patient - History of Present Illness Narrative History of Present Illness (Text): 05/26/17 10:32 A 52 year old male, whose past medical history includes paraplegia, spinal abscess, laminectomy, and DVT, sent into the emergency department by Dr. Askew for further evaluation concerning a pressure ulcer on right buttock. Patient denies any fever, chills, nausea, vomiting, abdominal pain, chest pain, shortness of breath or any other complaints. PMD: Dr. Angelica Georges Time/Duration: Other (several days) Symptom Course: Unchanged Context: Home Past Medical History - Provider Review Nursing Documentation Reviewed: Yes - Infectious Disease Hx of Infectious Diseases: None - Cardiac Hx Cardiac Disorders: No - Pulmonary Hx Respiratory Disorders: No - Neurological Other/Comment: paraplegic - HEENT Hx HEENT Disorder: No - Renal Hx Renal Disorder: No - Endocrine/Metabolic Hx Endocrine Disorders: No - Hematological/Oncological Hx Blood Transfusions: Yes - Integumentary Hx Dermatological Disorder: No - Musculoskeletal/Rheumatological Hx Musculoskeletal Disorders: Yes Hx Falls: No Other/Comment: paraplegic - Gastrointestinal Hx Gastrointestinal Disorders: Yes Hx Colostomy: Yes - Genitourinary/Gynecological Hx Genitourinary Disorders: Yes Hx Incontinence: Yes Other/Comment: has haque bag and diaper - Psychiatric Hx Psychophysiologic Disorder: No Hx Substance Use: No - Surgical History Other/Comment: colostomy bag - Anesthesia Hx Anesthesia Reactions: No Hx Malignant Hyperthermia: No Family/Social History - Physician Review Nursing Documentation Reviewed: Yes Family/Social History: No Known Family HX Smoking Status: Former Smoker Hx Alcohol Use: Yes (ETOH H/O ABUSE) Hx Substance Use: No Allergies/Home Meds Allergies/Adverse Reactions: Allergies ceftriaxone [From Rocephin] Adverse Reaction (Mild, Verified 05/26/17 11:04) BURNING AT IV SITE BURNING/ITCHING AT IV SITE; NOT GENERALIZED RASH Cephalosporins Adverse Reaction (Mild, Verified 05/26/17 11:04) BURNING AT IV SITE LOCALIZED BURNING/ITCHING AT IV SITE; NOT GENERALIZED RASH Home Medications: Home Meds Medication Instructions Recorded Confirmed Warfarin [Coumadin] 6 mg PO 1800 05/26/17 05/26/17 Review of Systems - Physician Review All systems were reviewed & negative as marked: Yes - Review of Systems Constitutional: absent: Fevers, Night Sweats Respiratory: absent: SOB Cardiovascular: absent: Chest Pain Gastrointestinal: absent: Abdominal Pain, Nausea, Vomiting Skin: Ulcer (pressure ulcer to right buttock) Physical Exam Vital Signs Reviewed: Yes Vital Signs Temp Pulse Resp BP Pulse Ox 05/26/17 11:38 68 18 131/86 100 05/26/17 10:28 98.3 F 73 19 133/95 H 97 Temperature: Afebrile Blood Pressure: Hypertensive Pulse: Regular Respiratory Rate: Normal Appearance: Positive for: Well-Appearing, Non-Toxic, Comfortable Pain Distress: None Mental Status: Positive for: Alert and Oriented X 3 - Systems Exam Head: Present: Atraumatic, Normocephalic Pupils: Present: PERRL Extroacular Muscles: Present: EOMI Conjunctiva: Present: Normal Mouth: Present: Moist Mucous Membranes Neck: Present: Normal Range of Motion Respiratory/Chest: Present: Clear to Auscultation, Good Air Exchange. No: Respiratory Distress, Accessory Muscle Use Cardiovascular: Present: Regular Rate and Rhythm, Normal S1, S2. No: Murmurs Abdomen: Present: Other (colostomy bag notes to right abdomen) Back: Present: Decubitus Ulcer (severe foul smelling grade 3 decubitus ulcer to right buttock) Upper Extremity: Present: Normal Inspection. No: Cyanosis, Edema Lower Extremity: Present: Other (paraplegic) Neurological: Present: GCS=15, CN II-XII Intact, Speech Normal Skin: Present: Warm, Dry, Normal Color. No: Rashes Psychiatric: Present: Alert, Oriented x 3, Normal Insight, Normal Concentration Medical Decision Making ED Course and Treatment: 05/26/17 10:32 Impression: A 52 year old male with a decubitus ulcer to right buttock Plan: -- Labs -- Blood culture -- Vancomycin and Zosyn -- Reassess and disposition Progress Notes: - Lab Interpretations Lab Results: 05/26/17 11:00 05/26/17 11:00 Lab Results 05/26/17 11:00: Sodium 141, Potassium 3.9, Chloride 100, Carbon Dioxide 28, Anion Gap 17, BUN 14, Creatinine 0.7 L, Est GFR ( Amer) > 60, Est GFR ( Non-Af Amer) > 60, Random Glucose 94, Calcium 9.9, Total Bilirubin 0.6, AST 17 D, ALT 23, Alkaline Phosphatase 91, Total Protein 8.4 H, Albumin 4.0, Globulin 4.4, Albumin/Globulin Ratio 0.9 L 05/26/17 11:00: WBC 8.0 D, RBC 4.42, Hgb 11.6 L, Hct 36.9 L, MCV 83.5, MCH 26.2 , MCHC 31.4, RDW 16.5 H, Plt Count 285, MPV 11.1 H, Gran % 67.5, Lymph % (Auto) 20.5 L, [place] % (Auto) 9.8 H, Eos % (Auto) 1.9, Baso % (Auto) 0.3, Gran # 5.40, Lymph # (Auto) 1.6, [place] # (Auto) 0.8 H, Eos # (Auto) 0.2, Baso # (Auto) 0.02 I have reviewed the lab results: Yes - Medication Orders Current Medication Orders: Amlodipine Besylate (Norvasc) 2.5 mg PO DAILY DONAL Baclofen (Lioresal) 20 mg PO BID DONAL Gabapentin (Neurontin) 300 mg PO BID DONAL PRN Reason: Protocol Sodium Chloride (Sodium Chloride 0.45%) 1,000 mls @ 40 mls/hr IV .Q24H DONAL Last Admin: 05/26/17 12:07 Dose: 40 mls/hr eMAR Start Stop Document 05/26/17 12:07 HI (Rec: 05/26/17 12:07 [id number] Intravenous Solution Start Date 05/26/17 Start Time 12:07 Piperacillin Sod/Tazobactam Sod (Zosyn 2.25 Gm In 0.9% 100 Ml) 2.25 gm in 100 mls @ 100 mls/hr IVPB Q6 DONAL PRN Reason: Protocol Stop: 05/26/17 18:59 Warfarin Sodium (Coumadin) 6 mg PO 1800 [facility] PRN Reason: Protocol Discontinued Medications Acetaminophen (Tylenol 325mg Tab) 650 mg PO STAT STA Stop: 05/26/17 11:14 Last Admin: 05/26/17 12:02 Dose: 650 mg MAR Pain/Vitals Document 05/26/17 12:02 HI (Rec: 05/26/17 12:07 [id number] Pain Reassessment Is This A Pain ReAssessment? No Vancomycin HCl 1.5 gm/ Sodium (Chloride) 250 mls @ 167 mls/hr IVPB ONCE ONE PRN Reason: Protocol Stop: 05/26/17 12:03 Last Admin: 05/26/17 11:51 Dose: 167 mls/hr eMAR Start Stop Document 05/26/17 11:51 HI (Rec: 05/26/17 11:51 HI [id number]) Intravenous Solution Start Date 05/26/17 Start Time 11:51 Piperacillin Sod/Tazobactam Sod (Zosyn 4.5 Gm In Ns 100ml) 4.5 gm in 100 mls @ 200 mls/hr IVPB STAT STA PRN Reason: Protocol Stop: 05/26/17 11:03 Last Admin: 05/26/17 11:12 Dose: 200 mls/hr eMAR Start Stop Document 05/26/17 11:12 HI (Rec: 05/26/17 11:12 HI [id number]) Intravenous Solution Start Date 05/26/17 Start Time 11:12 Warfarin Sodium (Coumadin) 6 mg PO 1800 DONAL PRN Reason: Protocol Disposition/Present on Arrival - Present on Arrival Any Indicators Present on Arrival: No History of DVT/PE: No History of Uncontrolled Diabetes: No Urinary Catheter: Yes History Surgical Site Infection Following: None - Disposition Have Diagnosis and Disposition been Completed?: Yes Diagnosis: Infected decubitus ulcer Disposition: HOSPITALIZED Disposition Time: 12:20 Patient Plan: Admission Condition: STABLE
[2017-05-26] MEDS ORDERED: Piperacill/Tazo 4.5gm in NS 4.5 GM/100 ML BAG IVPB STA (10:34)
[2017-05-26 11:09] LABS: BASO # 0.02 K/mm3 (0.0-2.0); BASO % 0.3 % (0.0-3.0); EOS # 0.2 (0.0-0.7); EOS % 1.9 % (1.5-5.0); GRAN # 5.4 (1.4-6.5); GRAN % 67.5 % (50.0-68.0); HEMOGLOBIN 11.6 g/dL (14.0-18.0); LYMPH # 1.6 (1.2-3.4); LYMPH % 20.5 % (22.0-35.0); MEAN CELL VOLUME 83.5 fl (80.0-105.0); MEAN CORPUSCULAR HEMOGLOBIN 26.2 pg (25.0-35.0); MEAN CORPUSCULAR HGB CONC 31.4 g/dl (31.0-37.0); MEAN PLATELET VOLUME 11.1 fl (7.0-11.0); MONO # 0.8 (0.1-0.6); MONO % 9.8 % (1.0-6.0); RBC 4.42 10^6/uL (3.5-6.1); RED CELL DISTRIBUTION WIDTH 16.5 % (11.5-14.5)
[2017-05-26 11:19] LABS: ALB/GLOB RATIO 0.9 (1.1-1.8); ALT/SGPT 23 U/L (7-56); AST/SGOT 17 U/L (17-59); BLOOD UREA NITROGEN 14 mg/dL (7-21); CALCIUM 9.9 mg/dL (8.4-10.5); GFR AFRICAN-AMERICAN > 60; GFR NON-AFRICAN AMERICAN > 60
[2017-05-26] MEDS: Sodium Chloride 0.45% 1,000 ML IV SCH (12:07)
[2017-05-26] MEDS ORDERED: Dakin's Topical 0.25%-Half Strength (480 ml) TOP SCH (14:15)
--- NOTE | 2017-05-26 14:29 | CP.PCM.CON ---
History of Present Illness - History of Present Illness History of Present Illness: Surgery Consult for Dr. Askew 52 year old paraplegic male with history of DVT treated with warfarin presents with a known right ischial pressure ulcer, which has been treated at home with a wound vac for the past month. He was seen at Dr. Askew's office, who recommended he be admitted to the hospital for further treatment, due to necrosis and foul odor of the pressure ulcer. Patient is not complaining of any pain at the ulcer site, due to his paraplegia. Patient also denies fever, chills , nausea, vomiting. PMH: Paraplegia since June 2016, neurogenic bladder, DVT, PE PSHx: ostomy, laminectomy, neurogenic bladder with haque, IVC filter Social Hx: cocaine abuse Family History: noncontributory Allergies: Ceftriaxone, Cephalosporins Medications: see med rec Review of Systems - Constitutional Constitutional: absent: Chills, Fever - Cardiovascular Cardiovascular: absent: Chest Pain - Gastrointestinal Gastrointestinal: absent: Abdominal Pain, Cramping, Nausea, Vomiting - Musculoskeletal Musculoskeletal: Muscle Weakness, Numbness - Integumentary Integumentary: Skin Ulcer, Wounds Past Patient History - Infectious Disease Hx of Infectious Diseases: None - Past Social History Smoking Status: Former Smoker - CARDIAC Hx Cardiac Disorders: No - PULMONARY Hx Respiratory Disorders: No - NEUROLOGICAL Other/Comment: paraplegic - HEENT Hx HEENT Problems: No - RENAL Hx Chronic Kidney Disease: No - ENDOCRINE/METABOLIC Hx Endocrine Disorders: No - HEMATOLOGICAL/ONCOLOGICAL Hx Blood Transfusions: Yes - INTEGUMENTARY Hx Dermatological Problems: No - MUSCULOSKELETAL/RHEUMATOLOGICAL Hx Musculoskeletal Disorders: Yes Hx Falls: No Other/Comment: paraplegic - GASTROINTESTINAL Hx Gastrointestinal Disorders: Yes Hx Colostomy: Yes - GENITOURINARY/GYNECOLOGICAL Hx Genitourinary Disorders: Yes Hx Incontinence: Yes Other/Comment: has haque bag and diaper - PSYCHIATRIC Hx Psychophysiologic Disorder: No Hx Substance Use: No - SURGICAL HISTORY Other/Comment: colostomy bag - ANESTHESIA Hx Anesthesia Reactions: No Hx Malignant Hyperthermia: No Meds Allergies/Adverse Reactions: Allergies Allergy/AdvReac Type Severity Reaction Status Date / Time ceftriaxone [From Rocephin] AdvReac Mild BURNING AT Verified 05/26/17 11:04 IV SITE Cephalosporins AdvReac Mild BURNING AT Verified 05/26/17 11:04 IV SITE - Medications Medications: Current Medications Amlodipine Besylate (Norvasc) 2.5 mg PO DAILY [facility] Baclofen (Lioresal) 20 mg PO BID DONAL Gabapentin (Neurontin) 300 mg PO BID DONAL PRN Reason: Protocol Sodium Chloride (Sodium Chloride 0.45%) 1,000 mls @ 40 mls/hr IV .Q24H DONAL Last Admin: 05/26/17 12:07 Dose: 40 mls/hr Piperacillin Sod/Tazobactam Sod (Zosyn 2.25 Gm In 0.9% 100 Ml) 2.25 gm in 100 mls @ 100 mls/hr IVPB Q6 DONAL PRN Reason: Protocol Stop: 05/26/17 18:59 Sodium Hypochlorite (Dakins Solution 0.25%) 0 ml TOP DAILY [facility] Warfarin Sodium (Coumadin) 6 mg PO 1800 DONAL PRN Reason: Protocol Physical Exam - Constitutional Appears: Well, No Acute Distress - Head Exam Head Exam: ATRAUMATIC, NORMAL INSPECTION, NORMOCEPHALIC - Eye Exam Eye Exam: EOMI, Normal appearance - Neck Exam Neck exam: Positive for: Normal Inspection - Respiratory Exam Respiratory Exam: NORMAL BREATHING PATTERN - Cardiovascular Exam Cardiovascular Exam: REGULAR RHYTHM, +S1, +S2 - GI/Abdominal Exam GI & Abdominal Exam: Soft. absent: Distended, Tenderness Additional comments: ostomy has no sign of infection, pink and patent and productive - Exam Additional comments: haque intact, cloudy yellow urine with sediments - Extremities Exam Extremities exam: Negative for: full ROM - Back Exam Back exam: absent: FULL ROM - Neurological Exam Neurological exam: Alert, Motor Sensory Deficit, Oriented x3 - Psychiatric Exam Psychiatric exam: Normal Affect, Normal Mood - Skin Skin Exam: Abrasion, Erythema, Warm - Additional Findings Additional findings: Right ischial pressure ulcer with necrosis and foul odor, 5x5 cm, 5 cm in depth , involving deep tissues Results - Vital Signs Recent Vital Signs: Last Vital Signs Temp 98.3 F 05/26/17 10:28 Pulse 65 05/26/17 13:20 Resp 18 05/26/17 13:20 BP 128/74 05/26/17 13:20 Pulse Ox 100 05/26/17 13:20 - Labs Result Diagrams: 05/26/17 11:00 05/26/17 11:00 Assessment & Plan - Assessment and Plan (Free Text) Assessment: Right ischial pressure ulcer stage 4 Plan: Local wound care with Dakins soaks Kerlex packing BID with Optifoam Plan for OR Thursday for wound debridement NPO after midnight Hold Coumadin, transition to Lovenox pending INR Medical management Pressure ulcer management: air mattress, off loading, turn patient q2 Discussed with Dr. Askew
[2017-05-26 15:43] LABS: INR 2.36 (0.93-1.08); PARTIAL THROMBOPLASTIN TIME 40.3 Seconds (25.1-36.5); PROTHROMBIN TIME 27.4 SECONDS (9.4-12.5)
[2017-05-26] MEDS: Piperacillin/Tazobact 2.25gm 2.25 GM/100 ML BAG IVPB SCH ×2 (16:16→19:02)
[2017-05-26] MEDS ORDERED: Pneumococcal 23-Valent Vaccine IM ONE (17:37)
[2017-05-26] MEDS ORDERED: Influenza Vaccine 60 mcg/0.5 mL SYR (4YR UP) IM ONE (17:37)
[2017-05-27 07:06] LABS: HEMOGLOBIN 10.3 g/dL (14.0-18.0); MEAN CELL VOLUME 83.2 fl (80.0-105.0); MEAN CORPUSCULAR HEMOGLOBIN 26.1 pg (25.0-35.0); MEAN CORPUSCULAR HGB CONC 31.4 g/dl (31.0-37.0); MEAN PLATELET VOLUME 11.3 fl (7.0-11.0); RBC 3.94 10^6/uL (3.5-6.1); RED CELL DISTRIBUTION WIDTH 16.4 % (11.5-14.5); WHITE BLOOD COUNT 6.3 10^3/ul (4.5-11.0)
[2017-05-27 07:13] LABS: INR 2.63 (0.93-1.08); PROTHROMBIN TIME 30.8 SECONDS (9.4-12.5)
[2017-05-27 07:24] LABS: ALB/GLOB RATIO 0.9 (1.1-1.8); ALBUMIN 3.4 g/dL (3.0-4.8); ALT/SGPT 18 U/L (7-56); AST/SGOT 17 U/L (17-59); BLOOD UREA NITROGEN 12 mg/dL (7-21); CALCIUM 9.6 mg/dL (8.4-10.5); GFR AFRICAN-AMERICAN > 60; GFR NON-AFRICAN AMERICAN > 60
--- NOTE | 2017-05-27 08:12 | HP ---
HISTORY OF PRESENT ILLNESS: I was called in to the emergency room to admit him. He was sent in by Dr. Askew, the surgeon, for an infected pressure ulcer on the right buttock. His past medical history includes paraplegia, spinal abscess, laminectomy, DVT, who is on Coumadin. He is comfortable in bed right now. He has an odor, smells like it is Pseudomonas. He is paraplegic. He has had blood transfusions in the past. He has a colostomy, incontinence of urine. He has a Mackenzie and diaper, colostomy bag. He has no known family history. A former smoker, still drinks alcohol. No substance abuse. HE IS ALLERGIC TO ROCEPHIN AND CEPHALOSPORINS. He was given a dose of Zosyn already. REVIEW OF SYSTEMS: No acute vision or hearing changes. No sore throat. No chest pain or palpitations or shortness of breath or cough. No abdominal pain, nausea, vomiting. He has a pressure ulcer to the right buttocks with odor. He cannot move his lower extremities due to the paraplegia. PHYSICAL EXAMINATION: VITAL SIGNS: He has 90.2 temp, 73 pulse, 19 respiratory rate, 133/95 blood pressure. I will put him on Norvasc. Pulse ox is 97%. HEENT: Head is atraumatic, normocephalic. Extraocular muscles are intact. Pupils are reactive to light. Throat is moist. GENERAL: He is alert, comfortable in bed. NECK: Supple. HEART: Regular rate. Normal S1, S2. LUNGS: Clear to auscultation bilaterally. ABDOMEN: Soft. Positive bowel sounds. He has a colostomy bag in right abdomen. He has decubitus ulcers, severe, foul smelling, grade III decubitus ulcer, right buttocks. EXTREMITIES: No edema. He is paraplegic. NEUROLOGIC: GCS is 15. Cranial nerves II-XII grossly intact. He cannot move his lower extremities, paralysis. Alert, oriented x3. SKIN: Warm and dry except for the ulcer of the right buttocks. LABORATORY DATA: He has a 8 white count, 11.6 hemoglobin, 36.9 hematocrit with 285 platelets. is not back yet. I will await for Dr. Coronel to take a look at him, he is the consulting infectious doctor and Dr. Askew is here for infected foul smelling right sacral ulcer, history of deep venous thrombosis, paraplegia hypertension right now. We will follow. He must be admitted. Lincoln Smith DO ELEANOR
[2017-05-27] MEDS ORDERED: Piperacillin/Tazobact 2.25gm 2.25 GM/100 ML BAG IVPB SCH (12:00)
[2017-05-27] MEDS ORDERED: HYDROmorphone 0.5 mg/0.5 ml ISec IVP PRN (13:13)
[2017-05-27] MEDS ORDERED: Lactated Ringer's 1,000 ML IV SCH (13:15)
[2017-05-27] MEDS: Piperacillin/Tazobact 2.25gm 2.25 GM/100 ML BAG IVPB SCH ×2 (13:53→18:11)
--- NOTE | 2017-05-27 14:22 | PN ---
DATE: SUBJECTIVE: I saw him resting comfortably in bed. He is now on isolation precautions for contact. He is on IV fluids, warfarin, baclofen, Neurontin, Norvasc, Tylenol. He was given a dose of vancomycin and Zosyn. I will continue the Zosyn. I called in Infectious Disease yesterday, they have not seen him yet. Also, Surgery understands and may go for a surgical debridement. He is comfortable, no pain. PHYSICAL EXAMINATION VITAL SIGNS: He has 98.3 temperature, 71 pulse, 128/74 blood pressure, 18 respiratory rate, 100% O2 saturation on room air. GENERAL: He is alert, comfortable, smiling. HEENT: Throat is moist. Head is normocephalic, atraumatic. NECK: Supple. HEART: Regular rate. LUNGS: Clear to auscultation. ABDOMEN: Soft. EXTREMITIES: No edema. He has got a large sacral ulcer. He needs to have it debrided. LABORATORY DATA: He has 140 sodium, potassium 4.1, BUN 12, creatinine 0.6, GFR is greater than 60, sugar is 103, calcium is 9.6, total bili is 0.4, AST is 17, ALT is 18, alkaline phosphatase 76, total protein 7.5. INR is 2.63. He is on Coumadin. Surgery is to know that before they start debriding for bleeding purposes. WBC is 6.3, hemoglobin 10.3, hematocrit 32.8, platelets 252,000. ASSESSMENT AND PLAN: He was seen in consult with Dr. Askew, the college president, right ischemic pressure ulcer stage IV. Nothing per os after midnight for possible debridement depending on what they feel about the INR. We will check his labs tomorrow. Intravenous antibiotics. Hopefully, Infectious Disease with see him today and adjust the antibiotics as needed. Continue aggressive treatment and care for his infected decubitus ulcers. Lincoln Smith DO
--- NOTE | 2017-05-27 15:06 | PCM.SURG1 ---
Surgeon's Initial Post Op Note - Surgeon's Notes Surgeon: Dr. Askew Ballistics Teacher: Caprice Roman, PGY3; Becca Du, PGY2; Gertrudis Handy Type of Anesthesia: IV Sedation Pre-Operative Diagnosis: stage 4 right ischial pressure ulcer Operative Findings: Circular wound approximately 5cm in diameter with necrotic, foul smelling tissue extending just above the ischium and 3-4cm cephalad involving gluteal muscle tissue. See full operative report Post-Operative Diagnosis: same Operation Performed: sharp and blunt mechanical debridement of right ischial pressure ulcer Specimen/Specimens Removed: debrided tissue, culture swab of debrided tissue Estimated Blood Loss: EBL {In ML}: 5 Blood Products Given: N/A Drains Used: No Drains Post-Op Condition: Fair Date of Surgery/Procedure: 05/27/17 Time of Surgery/Procedure: 14:00
[2017-05-27] MEDS ORDERED: Morphine 4 mg/ml ISec IVP PRN (15:14)
--- NOTE | 2017-05-27 18:01 | CP.PCM.CON ---
History of Present Illness - History of Present Illness History of Present Illness: 52 year old male with PMH of sacral decubitus infection, S/P colostomy, history of epidural abscess secondary to Strep pneumoniae with associated cord compression and lower extremity paralysis and neurogenic bladder S/P neurosurgery for abscess drainage and laminectomy , history of partial small bowel obstruction, significant smoking history , alcohol abuse was brought in for debridement of the sacral ulcer. He denies fever or chills, no nausea or vomiting, no chest pain, no SOB, no headache or dizziness, abdominal pain, no diarrhea, no dysuria. Infectious Diseases consult is requested for antibiotics. Review of Systems - Review of Systems All systems: reviewed and no additional remarkable complaints except (as per HPI ) Past Patient History - Infectious Disease Hx of Infectious Diseases: None - Past Social History Smoking Status: Former Smoker - CARDIAC Hx Cardiac Disorders: No - PULMONARY Hx Respiratory Disorders: No - NEUROLOGICAL Hx Neurological Disorder: Yes Other/Comment: paraplegic - HEENT Hx HEENT Problems: No - RENAL Hx Chronic Kidney Disease: No - ENDOCRINE/METABOLIC Hx Endocrine Disorders: No - HEMATOLOGICAL/ONCOLOGICAL Hx Blood Disorders: Yes Hx Anemia: Yes (H/O BLOOD TRANSFUSION) - INTEGUMENTARY Hx Dermatological Problems: Yes Other/Comment: 05-26-17 PRESSURE SACRAL ULCER-HEALING WOUND BUT HAS 2 OPEN WOUND STAGE 2 1 CM IN DM. RIGHT BUTTOCK PRESSURE ULCER WITH OPEN WOUND SMOOTH EDGES, WOUND VAC AT HOME,NON HEALING WOUND.DEPTH OF 5 CM WITH INDURATION OF 3.5 AT 12 OCLOCK.WOUND BED HAS MOIST BLACK FILM NECROTIC TISSUE. LEFT HEEL HAS A PRESSURE ULCER BLACKENED NECROTIC TISSUE COVERING WHOLE WOUND.MEASURES 3 X 4 CM. - MUSCULOSKELETAL/RHEUMATOLOGICAL Hx Musculoskeletal Disorders: Yes Hx Falls: No Other/Comment: paraplegic - GASTROINTESTINAL Hx Gastrointestinal Disorders: Yes (COLOSTOMY LEFT.) Hx Colostomy: Yes - GENITOURINARY/GYNECOLOGICAL Hx Genitourinary Disorders: Yes Hx Incontinence: Yes Other/Comment: has haque and diaper - PSYCHIATRIC Hx Psychophysiologic Disorder: No Hx Substance Use: No - SURGICAL HISTORY Hx Surgeries: Yes (LAMINECTOMY,DEBRIDEMENT OF SACRAL ABSCESS 02-03-17) Other/Comment: colostomy bag - ANESTHESIA Hx Anesthesia Reactions: No Hx Malignant Hyperthermia: No Meds Allergies/Adverse Reactions: Allergies Allergy/AdvReac Type Severity Reaction Status Date / Time ceftriaxone [From Rocephin] AdvReac Mild BURNING AT Verified 05/26/17 16:46 IV SITE Cephalosporins AdvReac Mild BURNING AT Verified 05/26/17 16:46 IV SITE - Medications Medications: Current Medications Amlodipine Besylate (Norvasc) 2.5 mg PO DAILY [facility] Baclofen (Lioresal) 20 mg PO BID [facility] Last Admin: 05/26/17 19:02 Dose: 20 mg Gabapentin (Neurontin) 300 mg PO BID DONAL PRN Reason: Protocol Last Admin: 05/26/17 19:02 Dose: 300 mg Sodium Chloride (Sodium Chloride 0.45%) 1,000 mls @ 40 mls/hr IV .Q24H DONAL Last Admin: 05/26/17 12:07 Dose: 40 mls/hr Sodium Hypochlorite (Dakins Solution 0.25%) 0 ml TOP DAILY [facility] Warfarin Sodium (Coumadin) 6 mg PO 1800 DONAL PRN Reason: Protocol Physical Exam - Constitutional Appears: Chronically Ill - Head Exam Head Exam: NORMAL INSPECTION - ENT Exam ENT Exam: Mucous Membranes Moist - Neck Exam Neck exam: Negative for: Meningismus - Respiratory Exam Respiratory Exam: Decreased Breath Sounds - Cardiovascular Exam Cardiovascular Exam: +S1, +S2 - GI/Abdominal Exam GI & Abdominal Exam: Soft. absent: Tenderness Results - Vital Signs Recent Vital Signs: Last Vital Signs Temp 98.3 F 05/26/17 16:47 Pulse 94 H 05/26/17 17:51 Resp 16 05/26/17 17:51 BP 134/87 05/26/17 17:51 Pulse Ox 98 05/26/17 17:51 - Labs Result Diagrams: 05/27/17 06:20 05/27/17 06:20 Labs: Laboratory Results - last 24 hr 05/26/17 15:15 PT 27.4 H INR 2.36 H APTT 40.3 H Assessment & Plan - Assessment and Plan (Free Text) Plan: Assessment sacral decubitus infection S/P colostomy history of epidural abscess secondary to Strep pneumoniae with associated cord compression and lower extremity paralysis and neurogenic bladder S/P neurosurgery for abscess drainage and laminectomy history of partial small bowel obstruction significant smoking history alcohol abuse Plan will monitor off antibiotics since patient has no signs of sepsis; follow up OR cultures and pathology to know which antibiotic to use
[2017-05-27] MEDS: Collagenase 250 Units/gm Ointment(30 gm) TOP SCH (18:11)
[2017-05-27 18:53] VITALS: RESP 20
[2017-05-27] MEDS: oxyCODONE 5 mg Immediate Release Tab PO PRN (21:33)
[2017-05-28] MEDS: oxyCODONE 5 mg Immediate Release Tab PO PRN ×3 (04:33→17:48)
[2017-05-28 07:13] LABS: HEMOGLOBIN 9.7 g/dL (14.0-18.0); MEAN CORPUSCULAR HEMOGLOBIN 25.9 pg (25.0-35.0); MEAN CORPUSCULAR HGB CONC 30.9 g/dl (31.0-37.0); MEAN PLATELET VOLUME 11.2 fl (7.0-11.0); RBC 3.74 10^6/uL (3.5-6.1); RED CELL DISTRIBUTION WIDTH 16.5 % (11.5-14.5); WHITE BLOOD COUNT 5.6 10^3/ul (4.5-11.0)
[2017-05-28 07:27] LABS: INR 2.17 (0.93-1.08); PROTHROMBIN TIME 25.3 SECONDS (9.4-12.5)
[2017-05-28 07:34] LABS: ALB/GLOB RATIO 0.9 (1.1-1.8); ALBUMIN 3.4 g/dL (3.0-4.8); ALT/SGPT 19 U/L (7-56); AST/SGOT 14 U/L (17-59); BLOOD UREA NITROGEN 14 mg/dL (7-21); CALCIUM 9.4 mg/dL (8.4-10.5); GFR AFRICAN-AMERICAN > 60; GFR NON-AFRICAN AMERICAN > 60
--- NOTE | 2017-05-28 07:39 | CP.PCM.PN ---
Subjective - Date & Time of Evaluation Date of Evaluation: 05/28/17 Time of Evaluation: 07:33 - Subjective Subjective: Surgery Pt s&e. Pt underwent surgery yesterday and tolerated it well. Dressing changed this AM. No acute events overnight. Objective - Vital Signs/Intake and Output Vital Signs (last 24 hours): Temp Pulse Resp BP Pulse Ox 98.4 F 82 20 133/85 97 05/27/17 18:53 05/27/17 18:53 05/27/17 18:53 05/27/17 18:53 05/27/17 18:53 Intake and Output: 05/28/17 05/28/17 06:59 18:59 Intake Total 240 Output Total 1000 Balance -760 - Medications Medications: Current Medications Amlodipine Besylate (Norvasc) 2.5 mg PO DAILY [facility] Last Admin: 05/27/17 18:14 Dose: 2.5 mg Baclofen (Lioresal) 20 mg PO BID [facility] Last Admin: 05/27/17 18:15 Dose: 20 mg Collagenase (Santyl) 0 gm TOP BID [facility] Last Admin: 05/27/17 18:11 Dose: 1 applic Gabapentin (Neurontin) 300 mg PO BID [facility] PRN Reason: Protocol Last Admin: 05/27/17 18:15 Dose: 300 mg Sodium Chloride (Sodium Chloride 0.45%) 1,000 mls @ 40 mls/hr IV .Q24H [facility] Last Admin: 05/26/17 12:07 Dose: 40 mls/hr Morphine Sulfate (Morphine) 4 mg IVP Q4H PRN PRN Reason: Pain, severe (8-10) Ondansetron HCl (Zofran Inj) 4 mg IVP Q6H PRN PRN Reason: Nausea/Vomiting Oxycodone HCl (Oxycodone Immediate Release Tab) 5 mg PO Q6H PRN PRN Reason: Pain, moderate (4-7) Last Admin: 05/28/17 04:33 Dose: 5 mg Sodium Hypochlorite (Dakins Solution 0.25%) 0 ml TOP DAILY [facility] Warfarin Sodium (Coumadin) 6 mg PO 1800 [facility] PRN Reason: Protocol - Labs Labs: 05/28/17 06:30 05/27/17 06:20 PT 25.3 SECONDS (9.4-12.5) H 05/28/17 06:30 INR 2.17 (0.93-1.08) H 05/28/17 06:30 APTT 40.3 Seconds (25.1-36.5) H 05/26/17 15:15 - Constitutional Appears: No Acute Distress - Head Exam Head Exam: ATRAUMATIC, NORMAL INSPECTION, NORMOCEPHALIC - Eye Exam Eye Exam: EOMI, Normal appearance, PERRL Pupil Exam: NORMAL ACCOMODATION, PERRL - ENT Exam ENT Exam: Mucous Membranes Moist, Normal Exam - Neck Exam Neck Exam: Full ROM, Normal Inspection. absent: Lymphadenopathy - Respiratory Exam Respiratory Exam: NORMAL BREATHING PATTERN - Cardiovascular Exam Cardiovascular Exam: REGULAR RHYTHM, +S1, +S2. absent: Murmur - GI/Abdominal Exam GI & Abdominal Exam: Soft. absent: Distended - Rectal Exam Rectal Exam: NORMAL INSPECTION - Exam Exam: NORMAL INSPECTION - Extremities Exam Extremities Exam: absent: Full ROM - Back Exam Back Exam: tenderness. absent: Full ROM, NORMAL INSPECTION Additional comments: [id number] sacral ulcer. clean base. No bleeding. erythema. Dressing applied. - Neurological Exam Neurological Exam: Alert, Awake, CN II-XII Intact, Oriented x3. absent: Normal Gait - Psychiatric Exam Psychiatric exam: Normal Affect, Normal Mood - Skin Skin Exam: Erythema, Warm. absent: Dry, Intact, Normal Color Assessment and Plan - Assessment and Plan (Free Text) Assessment: POD 1 s/p wound debridement of decubitous ulcer -Dressing change with dakin solution soaked kerlix and optiform BID -Pain control -f/u cx -DVT/ GI ppx -PT/ Incentive spirometry -Turn q2 -Airmattress Will ROBERTO Askew
[2017-05-28 07:48] VITALS: PULSE 60
[2017-05-28] MEDS: Collagenase 250 Units/gm Ointment(30 gm) TOP SCH (11:10)
[2017-05-28] MEDS: Meropenem 1 GM in Sodium Chloride 0.9% 100 ML IVPB SCH ×2 (13:21→21:44)
--- NOTE | 2017-05-28 14:18 | PN ---
DATE: SUBJECTIVE: I saw him resting comfortably in bed. IV fluids are running. He is comfortable. He is status post I and D with Surgery. He is on IV fluids, warfarin, Dakin's solution, baclofen, morphine for pain, Neurontin, Norvasc, oxycodone, Santyl and Zofran. PHYSICAL EXAMINATION: VITAL SIGNS: 97.8 temperature, 60 pulse, 104/58 blood pressure, 20 respiratory rate, 89% O2 sat on room air. HEENT: Head: Atraumatic, normocephalic. HEART: Regular rate. LUNGS: Clear to auscultation. ABDOMEN: Soft. EXTREMITIES: Paralyzed, paraplegia. A large decubitus ulcer that was debrided. LABORATORY DATA: He has a 140 sodium, potassium 4.4, BUN 40, creatinine 0.8, GFR is greater than 60, sugar is 95, calcium is 9.4, total bili is 0.2, AST is 14, ALT is 19, alkaline phosphatase 65, total protein 7.1. INR is 2.17. White count 5.6, 9.7 hemoglobin, 31.4 hematocrit with 234 platelets. ASSESSMENT AND PLAN: He is not on any antibiotics right now. We will find out from Surgery if I could discharge him back home. I think I will put a wound vacuum-assisted closure on him. They seem to go to or TCU and what is their plan for followup. Why cannot I send him home. Hopefully, we will get that answer today. We will continue with aggressive treatment and care. Lincoln Smith DO MTDD
--- NOTE | 2017-05-28 14:19 | CP.PCM.PN ---
Subjective - Date & Time of Evaluation Date of Evaluation: 05/28/17 Time of Evaluation: 11:05 - Subjective Subjective: Had debridement done yesterday, no fevers, comfortable in bed. Objective - Vital Signs/Intake and Output Vital Signs (last 24 hours): Temp Pulse Resp BP Pulse Ox 97.6 F 62 18 117/61 99 05/27/17 15:29 05/27/17 15:29 05/27/17 15:29 05/27/17 15:29 05/27/17 15:29 Intake and Output: 05/27/17 05/27/17 06:59 18:59 Intake Total 580 0 Output Total 600 600 Balance -20 -600 - Medications Medications: Current Medications Amlodipine Besylate (Norvasc) 2.5 mg PO DAILY [facility] Baclofen (Lioresal) 20 mg PO BID [facility] Last Admin: 05/26/17 19:02 Dose: 20 mg Collagenase (Santyl) 0 gm TOP BID [facility] Gabapentin (Neurontin) 300 mg PO BID [facility] PRN Reason: Protocol Last Admin: 05/26/17 19:02 Dose: 300 mg Sodium Chloride (Sodium Chloride 0.45%) 1,000 mls @ 40 mls/hr IV .Q24H [facility] Last Admin: 05/26/17 12:07 Dose: 40 mls/hr Piperacillin Sod/Tazobactam Sod (Zosyn 2.25 Gm In 0.9% 100 Ml) 2.25 gm in 100 mls @ 100 mls/hr IVPB Q6 [facility]AL PRN Reason: Protocol Stop: 05/27/17 18:59 Last Admin: 05/27/17 13:53 Dose: 100 mls/hr Morphine Sulfate (Morphine) 4 mg IVP Q4H PRN PRN Reason: Pain, severe (8-10) Ondansetron HCl (Zofran Inj) 4 mg IVP Q6H PRN PRN Reason: Nausea/Vomiting Oxycodone HCl (Oxycodone Immediate Release Tab) 5 mg PO Q6H PRN PRN Reason: Pain, moderate (4-7) Sodium Hypochlorite (Dakins Solution 0.25%) 0 ml TOP DAILY [facility] Warfarin Sodium (Coumadin) 6 mg PO 1800 DONAL PRN Reason: Protocol - Labs Labs: 05/27/17 06:20 05/27/17 06:20 PT 30.8 SECONDS (9.4-12.5) H 05/27/17 06:20 INR 2.63 (0.93-1.08) H 05/27/17 06:20 APTT 40.3 Seconds (25.1-36.5) H 05/26/17 15:15 - Constitutional Appears: Non-toxic, Chronically Ill - Head Exam Head Exam: NORMAL INSPECTION - Eye Exam Eye Exam: Normal appearance - ENT Exam ENT Exam: Mucous Membranes Moist - Respiratory Exam Respiratory Exam: Decreased Breath Sounds - Cardiovascular Exam Cardiovascular Exam: +S1, +S2 - GI/Abdominal Exam GI & Abdominal Exam: Soft. absent: Tenderness Assessment and Plan - Assessment and Plan (Free Text) Plan: Assessment sacral decubitus infection S/P debridement POD #1, growing gram negative bacilli S/P colostomy history of epidural abscess secondary to Strep pneumoniae with associated cord compression and lower extremity paralysis and neurogenic bladder S/P neurosurgery for abscess drainage and laminectomy history of partial small bowel obstruction significant smoking history alcohol abuse Plan started Merrem pending identification and sensitivities of the gram negative bacilli in the wound will continue to monitor clinically
--- NOTE | 2017-05-28 14:51 | CP.PCM.CON ---
History of Present Illness - History of Present Illness History of Present Illness: Podiatry Consult Note- Dr. Jalloh 52 y.o male with PMH is seen and evaluated at bedside for left heel ulceration secondary to bed bound status. Patient reports he was admitted for a sacral ulceration infection in which he underwent wound debridement in the OR yesterday by Dr. Askew. Patient is known to Dr. Jalloh/Dr. Mojica and the wound care clinic. Reports coming every 1-2 weeks for continue treatment of left heel ulceration. Reports the the ulceration has improved since treatment. He noted no changes to his ulceration. Patient reports that he has offloading boots at home for his feet bilaterally. Patient denies nausea, fever, vomiting, shortness of breath, chills, or chest pain. No pedal complaints at this time. Reports no pain to the LE PMH: paraplegic, spinal abcess, DVT, HTN PSH: debridement of sacral ulceration, laminectomy MEDS: see meds list ALL: cephalosporins, ceftriaxone SH: former smoker 1ppd for 20 years, denies drinking or illicit drug use FH: mother- DM with kidney disease Past Patient History - Infectious Disease Hx of Infectious Diseases: None - Past Social History Smoking Status: Former Smoker - CARDIAC Hx Cardiac Disorders: No - PULMONARY Hx Respiratory Disorders: No - NEUROLOGICAL Hx Neurological Disorder: Yes Other/Comment: paraplegic - HEENT Hx HEENT Problems: No - RENAL Hx Chronic Kidney Disease: No - ENDOCRINE/METABOLIC Hx Endocrine Disorders: No - HEMATOLOGICAL/ONCOLOGICAL Hx Blood Disorders: Yes Hx Anemia: Yes (H/O BLOOD TRANSFUSION) - INTEGUMENTARY Hx Dermatological Problems: Yes Other/Comment: 05-26-17 PRESSURE SACRAL ULCER-HEALING WOUND BUT HAS 2 OPEN WOUND STAGE 2 1 CM IN DM. RIGHT BUTTOCK PRESSURE ULCER WITH OPEN WOUND SMOOTH EDGES, WOUND VAC AT HOME,NON HEALING WOUND.DEPTH OF 5 CM WITH INDURATION OF 3.5 AT 12 OCLOCK.WOUND BED HAS MOIST BLACK FILM NECROTIC TISSUE. LEFT HEEL HAS A PRESSURE ULCER BLACKENED NECROTIC TISSUE COVERING WHOLE WOUND.MEASURES 3 X 4 CM. - MUSCULOSKELETAL/RHEUMATOLOGICAL Hx Musculoskeletal Disorders: Yes Hx Falls: No Other/Comment: paraplegic - GASTROINTESTINAL Hx Gastrointestinal Disorders: Yes (COLOSTOMY LEFT.) Hx Colostomy: Yes - GENITOURINARY/GYNECOLOGICAL Hx Genitourinary Disorders: Yes Hx Incontinence: Yes Other/Comment: has haque and diaper - PSYCHIATRIC Hx Psychophysiologic Disorder: No Hx Substance Use: No - SURGICAL HISTORY Hx Surgeries: Yes (LAMINECTOMY,DEBRIDEMENT OF SACRAL ABSCESS 02-03-17) Other/Comment: colostomy bag - ANESTHESIA Hx Anesthesia Reactions: No Hx Malignant Hyperthermia: No Meds Allergies/Adverse Reactions: Allergies Allergy/AdvReac Type Severity Reaction Status Date / Time ceftriaxone [From Rocephin] AdvReac Mild BURNING AT Verified 05/26/17 16:46 IV SITE Cephalosporins AdvReac Mild BURNING AT Verified 05/26/17 16:46 IV SITE - Medications Medications: Current Medications Amlodipine Besylate (Norvasc) 2.5 mg PO DAILY [facility] [place] Last Admin: 05/28/17 09:36 Dose: 2.5 mg Baclofen (Lioresal) 20 mg PO BID [facility] Last Admin: 05/28/17 09:37 Dose: 20 mg Collagenase (Santyl) 0 gm TOP BID [facility] [place] Last Admin: 05/28/17 11:10 Dose: 1 applic Gabapentin (Neurontin) 300 mg PO BID [facility] PRN Reason: Protocol Last Admin: 05/28/17 09:41 Dose: 300 mg Sodium Chloride (Sodium Chloride 0.45%) 1,000 mls @ 40 mls/hr IV .Q24H [facility] [place] Last Admin: 05/26/17 12:07 Dose: 40 mls/hr Meropenem 1 gm/ Sodium (Chloride) 100 mls @ 100 mls/hr IVPB Q8 [facility] PRN Reason: Protocol Stop: 06/04/17 14:01 Last Admin: 05/28/17 13:21 Dose: 100 mls/hr Morphine Sulfate (Morphine) 4 mg IVP Q4H PRN PRN Reason: Pain, severe (8-10) Ondansetron HCl (Zofran Inj) 4 mg IVP Q6H PRN PRN Reason: Nausea/Vomiting Oxycodone HCl (Oxycodone Immediate Release Tab) 5 mg PO Q6H PRN PRN Reason: Pain, moderate (4-7) Last Admin: 05/28/17 11:10 Dose: 5 mg Sodium Hypochlorite (Dakins Solution 0.25%) 0 ml TOP DAILY [facility] [place] Warfarin Sodium (Coumadin) 6 mg PO 1800 [facility] PRN Reason: Protocol Physical Exam - Constitutional Appears: Well, Non-toxic, No Acute Distress - Extremities Exam Extremities exam: Negative for: calf tenderness Additional comments: Lower extremity focused examination: No strikethrough with minor necrotic tissue noted to L heel dressing. Vasc: DP/PT pulses palpable 2/4 B/L. Temperature gradient warm to warm B/L. CFT < 3 sec to all digits. Minimal non-pitting edema localized to L heel. Neuro: Protective sensation grossly diminished B/L Derm: L posterolateral heel exhibits 2.5cm x 1.5cm x 0.2cm ulceration with necrotic base. Wound borders exhibit mild tissue masceration. Mild odor noted. No jose manuel wound erythema, no drainage, no probe to bone, no fluctuance. Ortho: Involuntary muscle spasms noted to B/L LE, L>R. No tenderness to palpation of L heel at site of pressure ulcerations. Mild tenderness upon elevation of L leg. - Neurological Exam Neurological exam: Alert, Oriented x3 - Psychiatric Exam Psychiatric exam: Normal Affect, Normal Mood Results - Vital Signs Recent Vital Signs: Last Vital Signs Temp 97.8 F 05/28/17 07:30 Pulse 60 05/28/17 07:30 Resp 20 05/28/17 07:30 BP 116/58 L 05/28/17 09:36 Pulse Ox 99 05/28/17 07:30 - Labs Result Diagrams: 05/28/17 06:30 05/28/17 06:30 Labs: Laboratory Results - last 24 hr 05/28/17 05/28/17 05/28/17 06:30 06:30 06:30 WBC 5.6 RBC 3.74 Hgb 9.7 L Hct 31.4 L MCV 84.0 MCH 25.9 MCHC 30.9 L RDW 16.5 H Plt Count 234 MPV 11.2 H PT 25.3 H INR 2.17 H Sodium 140 Potassium 4.4 Chloride 102 Carbon Dioxide 28 Anion Gap 15 BUN 14 Creatinine 0.8 Est GFR ( Amer) > 60 Est GFR (Non-Af Amer) > 60 Random Glucose 95 Calcium 9.4 Total Bilirubin 0.2 AST 14 L ALT 19 Alkaline Phosphatase 65 Total Protein 7.1 Albumin 3.4 Globulin 3.7 Albumin/Globulin Ratio 0.9 L Assessment & Plan - Assessment and Plan (Free Text) Assessment: 52 y/o male with left heel ulceration secondary to paraplegia with bed bound status Plan: Pt seen and evaluated at bedside. Discussed plan in detail with attending, Dr. Jalloh. Labs and vitals reviewed- afebrile, WBC 5.6 Wound to left heel cleansed with saline and dressed with Optifoam. Ordered Santyl. Will apply santyl with dressing changes Left foot wound does not appear clinically infected at this time Ordered Multipodus boot use, must be worn at all times in bed. Podiatry will continue to follow patient while in house Upon discharge patient to followup in Wound Care clinic within 1 week. Thank you for allowing us to take part in patient's care.
[2017-05-28] MEDS ORDERED: Collagenase 250 Units/gm Ointment(30 gm) TOP SCH (15:00)
[2017-05-28] MEDS: Sodium Chloride 0.45% 1,000 ML IV SCH (21:45)
[2017-05-29] MEDS: oxyCODONE 5 mg Immediate Release Tab PO PRN ×3 (00:20→13:28)
[2017-05-29] MEDS: Meropenem 1 GM in Sodium Chloride 0.9% 100 ML IVPB SCH (06:41)
[2017-05-29 07:20] LABS: MEAN CELL VOLUME 83.8 fl (80.0-105.0); MEAN CORPUSCULAR HEMOGLOBIN 25.7 pg (25.0-35.0); MEAN CORPUSCULAR HGB CONC 30.7 g/dl (31.0-37.0); MEAN PLATELET VOLUME 10.7 fl (7.0-11.0); RBC 3.89 10^6/uL (3.5-6.1); RED CELL DISTRIBUTION WIDTH 16.5 % (11.5-14.5); WHITE BLOOD COUNT 6.9 10^3/ul (4.5-11.0)
[2017-05-29 07:28] LABS: INR 1.69 (0.93-1.08); PROTHROMBIN TIME 19.7 SECONDS (9.4-12.5)
[2017-05-29 07:34] LABS: ALB/GLOB RATIO 0.9 (1.1-1.8); ALBUMIN 3.4 g/dL (3.0-4.8); ALT/SGPT 27 U/L (7-56); AST/SGOT 20 U/L (17-59); BLOOD UREA NITROGEN 15 mg/dL (7-21); CALCIUM 9.3 mg/dL (8.4-10.5); GFR AFRICAN-AMERICAN > 60; GFR NON-AFRICAN AMERICAN > 60
[2017-05-29 09:01] VITALS: BP 119/57; TEMP 98.2; O2SAT 97
--- NOTE | 2017-05-29 10:04 | CP.PCM.PN ---
Subjective - Date & Time of Evaluation Date of Evaluation: 05/29/17 Time of Evaluation: 09:53 - Subjective Subjective: Surgery: Dr. Askew Patient doing well today. Denies f/c/n/v. Tolerating diet. Dressing changed BID. Objective - Vital Signs/Intake and Output Vital Signs (last 24 hours): Temp Pulse Resp BP Pulse Ox 98.2 F 60 20 119/57 L 97 05/29/17 07:00 05/29/17 07:00 05/29/17 07:00 05/29/17 07:00 05/29/17 07:00 Intake and Output: 05/29/17 05/29/17 06:59 18:59 Intake Total 360 Output Total 1300 Balance -940 - Medications Medications: Current Medications Amlodipine Besylate (Norvasc) 2.5 mg PO DAILY [facility] Last Admin: 05/28/17 09:36 Dose: 2.5 mg Baclofen (Lioresal) 20 mg PO BID [facility] Last Admin: 05/28/17 17:48 Dose: 20 mg Collagenase (Santyl) 0 gm TOP DAILY [facility] Gabapentin (Neurontin) 300 mg PO BID [facility] PRN Reason: Protocol Last Admin: 05/28/17 17:49 Dose: 300 mg Sodium Chloride (Sodium Chloride 0.45%) 1,000 mls @ 40 mls/hr IV .Q24H [facility] Last Admin: 05/28/17 21:45 Dose: 40 mls/hr Meropenem 1 gm/ Sodium (Chloride) 100 mls @ 100 mls/hr IVPB Q8 [facility] PRN Reason: Protocol Stop: 06/04/17 14:01 Last Admin: 05/29/17 06:41 Dose: 100 mls/hr Morphine Sulfate (Morphine) 4 mg IVP Q4H PRN PRN Reason: Pain, severe (8-10) Ondansetron HCl (Zofran Inj) 4 mg IVP Q6H PRN PRN Reason: Nausea/Vomiting Oxycodone HCl (Oxycodone Immediate Release Tab) 5 mg PO Q6H PRN PRN Reason: Pain, moderate (4-7) Last Admin: 05/29/17 06:41 Dose: 5 mg Sodium Hypochlorite (Dakins Solution 0.25%) 0 ml TOP DAILY [facility] Warfarin Sodium (Coumadin) 6 mg PO 1800 [facility] PRN Reason: Protocol Last Admin: 05/28/17 17:47 Dose: 6 mg - Labs Labs: 05/29/17 06:30 05/29/17 06:30 PT 19.7 SECONDS (9.4-12.5) H 05/29/17 06:30 INR 1.69 (0.93-1.08) H 05/29/17 06:30 APTT 40.3 Seconds (25.1-36.5) H 05/26/17 15:15 - Constitutional Appears: Non-toxic, No Acute Distress - Head Exam Head Exam: ATRAUMATIC, NORMOCEPHALIC - Eye Exam Eye Exam: EOMI, Normal appearance - ENT Exam ENT Exam: Mucous Membranes Moist - Respiratory Exam Respiratory Exam: NORMAL BREATHING PATTERN. absent: Respiratory Distress - Back Exam Additional comments: ischial wound, malodorous. greenish/yellow exudate on dressing. Repacked with dakins solution kerlex dressing. Optifoam dressing placed over. Assessment and Plan - Assessment and Plan (Free Text) Assessment: 52 y/o male with ischial wound s/p debridement POD2 Plan: -cont BID dressing changes -may need further debridement prior to wound vac replacement -cont abx -turn Q2 -heal supports -further recs per Dr. Azar Barron PGY3
[2017-05-29] MEDS: Sodium Chloride 0.45% 1,000 ML IV SCH (11:45)
--- NOTE | 2017-05-29 12:49 | CP.PCM.PN ---
<Miguel Anderson - Last Filed: 05/29/17 12:33> Subjective - Date & Time of Evaluation Date of Evaluation: 05/29/17 Time of Evaluation: 12:00 - Subjective Subjective: Podiatry Progress Note- Dr. Mojica 52 y.o male seen and evaluated at bedside for left heel ulceration secondary to bed bound status. Patient is seen resting comfortably in bed, in NAD, and AA0x3. Patient denies nausea, fever, vomiting, shortness of breath, chills, or chest pain. No pedal complaints at this time. Reports no pain to the LE Objective - Vital Signs/Intake and Output Vital Signs (last 24 hours): Temp Pulse Resp BP Pulse Ox 98.2 F 60 20 119/57 L 97 05/29/17 07:00 05/29/17 07:00 05/29/17 07:00 05/29/17 11:44 05/29/17 07:00 Intake and Output: 05/29/17 05/29/17 06:59 18:59 Intake Total 360 Output Total 1300 Balance -940 - Medications Medications: Current Medications Amlodipine Besylate (Norvasc) 2.5 mg PO DAILY [facility] Last Admin: 05/29/17 11:44 Dose: 2.5 mg Baclofen (Lioresal) 20 mg PO BID [facility] Last Admin: 05/29/17 11:43 Dose: 20 mg Collagenase (Santyl) 0 gm TOP DAILY [facility] Last Admin: 05/29/17 11:45 Dose: 1 appl Gabapentin (Neurontin) 300 mg PO BID [facility] PRN Reason: Protocol Last Admin: 05/29/17 11:44 Dose: 300 mg Sodium Chloride (Sodium Chloride 0.45%) 1,000 mls @ 40 mls/hr IV .Q24H [facility] Last Admin: 05/29/17 11:45 Dose: 40 mls/hr Meropenem 1 gm/ Sodium (Chloride) 100 mls @ 100 mls/hr IVPB Q8 [facility] PRN Reason: Protocol Stop: 06/04/17 14:01 Last Admin: 05/29/17 06:41 Dose: 100 mls/hr Morphine Sulfate (Morphine) 4 mg IVP Q4H PRN PRN Reason: Pain, severe (8-10) Ondansetron HCl (Zofran Inj) 4 mg IVP Q6H PRN PRN Reason: Nausea/Vomiting Oxycodone HCl (Oxycodone Immediate Release Tab) 5 mg PO Q6H PRN PRN Reason: Pain, moderate (4-7) Last Admin: 05/29/17 06:41 Dose: 5 mg Sodium Hypochlorite (Dakins Solution 0.25%) 0 ml TOP DAILY [facility] Last Admin: 05/29/17 11:44 Dose: 1 applic Warfarin Sodium (Coumadin) 6 mg PO 1800 [facility] PRN Reason: Protocol Last Admin: 05/28/17 17:47 Dose: 6 mg - Labs Labs: 05/29/17 06:30 05/29/17 06:30 PT 19.7 SECONDS (9.4-12.5) H 05/29/17 06:30 INR 1.69 (0.93-1.08) H 05/29/17 06:30 APTT 40.3 Seconds (25.1-36.5) H 05/26/17 15:15 - Constitutional Appears: Well, Non-toxic, No Acute Distress - Extremities Exam Extremities Exam: absent: Calf Tenderness Additional comments: Lower extremity focused examination: No strikethrough with minor necrotic tissue noted to L heel dressing. Vasc: DP/PT pulses palpable 2/4 B/L. Temperature gradient warm to warm B/L. CFT < 3 sec to all digits. Minimal non-pitting edema localized to L heel. Neuro: Protective sensation grossly diminished B/L Derm: L posterolateral heel exhibits 2.5cm x 1.5cm x 0.2cm ulceration with necrotic base. Wound borders exhibit mild tissue masceration. Mild odor noted. No jose manuel wound erythema, no drainage, no probe to bone, no fluctuance. Ortho: Involuntary muscle spasms noted to B/L LE, L>R. No tenderness to palpation of L heel at site of pressure ulcerations. Mild tenderness upon elevation of L leg. - Neurological Exam Neurological Exam: Alert, Awake, Oriented x3 - Psychiatric Exam Psychiatric exam: Normal Affect, Normal Mood Assessment and Plan - Assessment and Plan (Free Text) Assessment: 52 y/o male with left heel ulceration secondary to paraplegia with bed bound status Plan: Pt seen and evaluated at bedside with attending Dr. Mojica Labs and vitals reviewed- afebrile, WBC 6.9 Wound to left heel cleansed with saline and dressed with Optifoam. Ordered Santyl. To be applied with dressing changes. Left foot wound does not appear clinically infected at this time Multipodus boot use, must be worn at all times in bed. Podiatry will continue to follow patient while in house Upon discharge patient to followup in Wound Care clinic within 1 week. <Adair Mojica - Last Filed: 05/29/17 16:49> Objective - Vital Signs/Intake and Output Vital Signs (last 24 hours): Temp Pulse Resp BP Pulse Ox 98.2 F 60 20 119/57 L 97 05/29/17 07:00 05/29/17 07:00 05/29/17 07:00 05/29/17 11:44 05/29/17 07:00 Intake and Output: 05/29/17 05/29/17 06:59 18:59 Intake Total 360 720 Output Total 1300 450 Balance -940 270 - Medications Medications: Current Medications Amlodipine Besylate (Norvasc) 2.5 mg PO DAILY [facility] Last Admin: 05/29/17 11:44 Dose: 2.5 mg Baclofen (Lioresal) 20 mg PO BID [facility] Last Admin: 05/29/17 11:43 Dose: 20 mg Collagenase (Santyl) 0 gm TOP DAILY [facility] Last Admin: 05/29/17 11:45 Dose: 1 appl Gabapentin (Neurontin) 300 mg PO BID [facility] PRN Reason: Protocol Last Admin: 05/29/17 11:44 Dose: 300 mg Sodium Chloride (Sodium Chloride 0.45%) 1,000 mls @ 40 mls/hr IV .Q24H [facility] Last Admin: 05/29/17 11:45 Dose: 40 mls/hr Meropenem 1 gm/ Sodium (Chloride) 100 mls @ 100 mls/hr IVPB Q8 [facility] PRN Reason: Protocol Stop: 06/04/17 14:01 Last Admin: 05/29/17 06:41 Dose: 100 mls/hr Morphine Sulfate (Morphine) 4 mg IVP Q4H PRN PRN Reason: Pain, severe (8-10) Ondansetron HCl (Zofran Inj) 4 mg IVP Q6H PRN PRN Reason: Nausea/Vomiting Oxycodone HCl (Oxycodone Immediate Release Tab) 5 mg PO Q6H PRN PRN Reason: Pain, moderate (4-7) Last Admin: 05/29/17 13:28 Dose: 5 mg Sodium Hypochlorite (Dakins Solution 0.25%) 0 ml TOP DAILY [facility] Last Admin: 05/29/17 11:44 Dose: 1 applic Warfarin Sodium (Coumadin) 6 mg PO 1800 [facility] PRN Reason: Protocol Last Admin: 05/28/17 17:47 Dose: 6 mg - Labs Labs: 05/29/17 06:30 05/29/17 06:30 PT 19.7 SECONDS (9.4-12.5) H 05/29/17 06:30 INR 1.69 (0.93-1.08) H 05/29/17 06:30 APTT 40.3 Seconds (25.1-36.5) H 05/26/17 15:15 Attending/Attestation - Attestation I have personally seen and examined this patient.: Yes I have fully participated in the care of the patient.: Yes I have reviewed all pertinent clinical information, including history, physical exam and plan: Yes
--- NOTE | 2017-05-29 14:14 | PN ---
DATE: SUBJECTIVE: I saw him resting comfortably in bed. He is alert. He is on IV antibiotics. He is on Coumadin, Dakin's morphine, Neurontin, Norvasc, oxycodone, Santyl, IV fluid and Zofran. PHYSICAL EXAMINATION VITAL SIGNS: Temperature 97.8, 60 pulse, 116/58 blood pressure, 20 respiratory rate, 99% O2 saturation on room air. HEENT: Head is atraumatic, normocephalic. HEARTS: Regular rate. LUNGS: Clear to auscultation. ABDOMEN: Soft, obese. EXTREMITIES: No edema. Large sacral decubitus with a wound VAC. LABORATORY DATA: He has a 6.9 white count, 10 hemoglobin, 32.6 hematocrit with a 234,000 platelets. INR 1.69. He has a 140 sodium, potassium 4.7, BUN 15, creatinine 0.7, GFR is greater than 60, sugar is a 100, calcium is 9.3, total bilirubin is 0.3, AST is 20, ALT is 22, alkaline phosphatase 67, total protein is 7.1, albumin is 3.4. ASSESSMENT: Infected decubitus ulcer, which was debrided. PLAN: I have discussed this with Infectious Disease doctor, he needs to be on IV antibiotics for his infected wound, which he came in with, for 14 days. We will try to get him to [facility] he has had gram-negative rods, gram-positive cocci in the wound and hopefully, we can get him to [facility] with a wound VAC with 2 weeks of IV antibiotics. I will discuss this with his nurse outreach case manager. Lincoln Smith DO ELEANOR
--- NOTE | 2017-05-29 15:28 | RAD ---
HISTORY: PICC placement check COMPARISON: 04/21/2017. FINDINGS: The right PICC line terminates in the SVC. LUNGS: The the lungs are well inflated and clear No active pulmonary disease. PLEURA: No significant pleural effusion identified, no pneumothorax apparent. CARDIOVASCULAR: Normal. OSSEOUS STRUCTURES: No significant abnormalities. VISUALIZED UPPER ABDOMEN: Normal. OTHER FINDINGS: None. IMPRESSION: Right PICC line terminates in the SVC. No acute findings.
--- NOTE | 2017-05-29 19:42 | CP.PCM.PN ---
Subjective - Date & Time of Evaluation Date of Evaluation: 05/29/17 Time of Evaluation: 11:55 - Subjective Subjective: Comfortable, no fevers, not in distress. Objective - Vital Signs/Intake and Output Vital Signs (last 24 hours): Temp Pulse Resp BP Pulse Ox 98.2 F 60 20 119/57 L 97 05/29/17 07:00 05/29/17 07:00 05/29/17 07:00 05/29/17 11:44 05/29/17 07:00 Intake and Output: 05/29/17 05/30/17 18:59 06:59 Intake Total 720 Output Total 450 Balance 270 - Labs Labs: 05/29/17 06:30 05/29/17 06:30 PT 19.7 SECONDS (9.4-12.5) H 05/29/17 06:30 INR 1.69 (0.93-1.08) H 05/29/17 06:30 APTT 40.3 Seconds (25.1-36.5) H 05/26/17 15:15 - Constitutional Appears: Chronically Ill - Head Exam Head Exam: NORMAL INSPECTION - Neck Exam Neck Exam: absent: Meningismus - Respiratory Exam Respiratory Exam: Decreased Breath Sounds - Cardiovascular Exam Cardiovascular Exam: +S1, +S2 - GI/Abdominal Exam GI & Abdominal Exam: Soft. absent: Tenderness Assessment and Plan - Assessment and Plan (Free Text) Plan: Assessment sacral decubitus infection S/P debridement POD #2, growing Proteus and E. coli S/P colostomy history of epidural abscess secondary to Strep pneumoniae with associated cord compression and lower extremity paralysis and neurogenic bladder S/P neurosurgery for abscess drainage and laminectomy history of partial small bowel obstruction significant smoking history alcohol abuse Plan continue Merrem for at least 2 weeks
--- NOTE | 2017-06-04 01:16 | OP ---
PROCEDURE DATE: 05/27/2017 PREOPERATIVE DIAGNOSIS: Debridement and placement of a wound vacuum-assisted closure was suggested but delayed to later. SURGEON: Trever Askew MD BRANCH SERVICE LEADER: Dr. Du and Abel. ESTIMATED BLOOD LOSS: Minimal. COMPLICATIONS: None. DESCRIPTION OF PROCEDURE: In the operating room, the patient was identified by name, name of procedure, laterality, my rama, the consent, his wrist band, and the number. Both the defect was identified. It was purulent. It was cleaned with peroxide followed by being prepped and draped. Using a knife and then a scissor, necrotic tissue was removed followed by using the Misonix, which debrided this to good viable tissue circumferentially. The wound was packed with Dakin's and the patient was sent to the recovery room in good condition after the sponge and needle counts were declared correct. Trever Askew MD
== END 2017-05-29 19:26 | DRG 263 ==
LOC: ED 10:20 → ERH 12:17 → 5RNO 18:34
PROVIDERS: ADMIT Family Medicine; ATTEND Family Medicine
PROC: 0JB70ZZ Excision of Back Subcutaneous Tissue and Fascia, Open Approach (ICD-10-PCS; principal; 2017-05-27 13:00)
PROC: 02HV33Z Insertion of Infusion Device into Superior Vena Cava, Percutaneous Approach (ICD-10-PCS; 2017-05-29)
PROC: B548ZZA Ultrasonography of Superior Vena Cava, Guidance (ICD-10-PCS; 2017-05-29)
DX: L89.154 Pressure ulcer of sacral region, stage 4 (principal); L97.429 Non-pressure chronic ulcer of left heel and midfoot with unspecified severity; G82.20 Paraplegia, unspecified; N31.9 Neuromuscular dysfunction of bladder, unspecified; F14.10 Cocaine abuse, uncomplicated; I10 Essential (primary) hypertension; F10.10 Alcohol abuse, uncomplicated; Z79.01 Long term (current) use of anticoagulants; Z93.3 Colostomy status; Z74.01 Bed confinement status; Z86.718 Personal history of other venous thrombosis and embolism; Z86.61 Personal history of infections of the central nervous system; Z87.891 Personal history of nicotine dependence; Z83.3 Family history of diabetes mellitus

== ENCOUNTER 2017-06-22 20:41 | Inpatient (IN) | payer OTHER ==
[2017-06-22] MEDS ORDERED: Piperacillin/Tazobact 3.375 gm 100 ML IVPB STA (22:25)
--- NOTE | 2017-06-22 22:28 | ED PDOC ---
Arrival/HPI - General Chief Complaint: Male Genitourinary Time Seen by Provider: 06/22/17 21:20 Historian: Patient - History of Present Illness Narrative History of Present Illness (Text): 06/22/17 21:50 A 52 year old male, whose past medical history includes anemia, paraplegic, colostomy (w/ haque bag), presents to the emergency department complaining of foul smell to sacral wound. Patient has history of ultiple admissions for wound therapy. Patient reports having recently been discharged from rehab and has had wound therapy at home. Patient denies any fever, or any other complaints at this time. PMD: Dr. Ishan Dominguez Past Medical History - Provider Review Nursing Documentation Reviewed: Yes - Infectious Disease Hx of Infectious Diseases: None - Cardiac Hx Cardiac Disorders: No - Pulmonary Hx Respiratory Disorders: No - Neurological Hx Neurological Disorder: Yes Other/Comment: paraplegic - HEENT Hx HEENT Disorder: No - Renal Hx Renal Disorder: No - Endocrine/Metabolic Hx Endocrine Disorders: No - Hematological/Oncological Hx Blood Disorders: Yes Hx Anemia: Yes (H/O BLOOD TRANSFUSION) - Integumentary Hx Dermatological Disorder: Yes Other/Comment: 05-26-17 PRESSURE SACRAL ULCER-HEALING WOUND BUT HAS 2 OPEN WOUND STAGE 2 1 CM IN DM. RIGHT BUTTOCK PRESSURE ULCER WITH OPEN WOUND SMOOTH EDGES, WOUND VAC AT HOME,NON HEALING WOUND.DEPTH OF 5 CM WITH INDURATION OF 3.5 AT 12 OCLOCK.WOUND BED HAS MOIST BLACK FILM NECROTIC TISSUE. LEFT HEEL HAS A PRESSURE ULCER BLACKENED NECROTIC TISSUE COVERING WHOLE WOUND.MEASURES 3 X 4 CM. - Musculoskeletal/Rheumatological Hx Musculoskeletal Disorders: Yes Hx Falls: No Other/Comment: paraplegic - Gastrointestinal Hx Gastrointestinal Disorders: Yes (COLOSTOMY LEFT.) Hx Colostomy: Yes - Genitourinary/Gynecological Hx Genitourinary Disorders: Yes Hx Incontinence: Yes Other/Comment: has haque and diaper - Psychiatric Hx Psychophysiologic Disorder: No Hx Substance Use: No - Surgical History Other/Comment: colostomy bag - Anesthesia Hx Anesthesia Reactions: No Hx Malignant Hyperthermia: No Family/Social History - Physician Review Nursing Documentation Reviewed: Yes Family/Social History: No Known Family HX Smoking Status: Former Smoker Hx Alcohol Use: Yes (H/O OF ABUSE.DRANK DAILY BEFORE.QUIT) Hx Substance Use: No Allergies/Home Meds Allergies/Adverse Reactions: Allergies ceftriaxone [From Rocephin] Adverse Reaction (Mild, Verified 05/26/17 16:46) BURNING AT IV SITE BURNING/ITCHING AT IV SITE; NOT GENERALIZED RASH Cephalosporins Adverse Reaction (Mild, Verified 05/26/17 16:46) BURNING AT IV SITE LOCALIZED BURNING/ITCHING AT IV SITE; NOT GENERALIZED RASH Home Medications: Home Meds Medication Instructions Recorded Confirmed Warfarin [Coumadin] 6 mg PO 1800 05/26/17 05/26/17 Review of Systems - Physician Review All systems were reviewed & negative as marked: Yes - Review of Systems Constitutional: absent: Fevers Skin: Other (foul smell to sacral wound) Physical Exam Vital Signs Reviewed: Yes Vital Signs Temp Pulse Resp BP Pulse Ox 06/22/17 21:01 97.7 F 95 H 18 146/77 100 06/22/17 20:53 98.2 F 94 H 18 146/77 100 Temperature: Afebrile Blood Pressure: Normal Pulse: Regular Respiratory Rate: Normal Appearance: Positive for: Well-Appearing Pain Distress: None Mental Status: Positive for: Alert and Oriented X 3 - Systems Exam Head: Present: Atraumatic, Normocephalic Pupils: Present: PERRL Extroacular Muscles: Present: EOMI Conjunctiva: Present: Normal Mouth: Present: Moist Mucous Membranes Neck: Present: Normal Range of Motion Respiratory/Chest: Present: Clear to Auscultation, Good Air Exchange. No: Respiratory Distress, Accessory Muscle Use Cardiovascular: Present: Regular Rate and Rhythm, Normal S1, S2. No: Murmurs Abdomen: Present: Other (colostomy bag (draining), haque in place, wound vac in place (foul smelling).) Back: Present: Normal Inspection Upper Extremity: Present: Normal Inspection. No: Cyanosis, Edema Lower Extremity: Present: Normal Inspection. No: Edema Neurological: Present: GCS=15, CN II-XII Intact, Speech Normal Skin: Present: Warm, Dry, Normal Color. No: Rashes Psychiatric: Present: Alert, Oriented x 3, Normal Insight, Normal Concentration Medical Decision Making ED Course and Treatment: 06/22/17 21:53 Impression: 52 year old male with foul smell to sacral wound. Physical exam shows colostomy bag (draining), haque in place, wound vac in place (foul smelling). Plan: -- Labs -- Blood Culture -- Zosyn -- Reassess and disposition Prior Visits: Notes and results from previous visits were reviewed. Patient was last seen in the emergency department on Progress Notes: 06/22/17 22:[address] Jones, whom agrees to admit patient to medical floor. Dr. Cavanaugh for surgical consult. - Lab Interpretations I have reviewed the lab results: Yes - Medication Orders Current Medication Orders: Piperacillin Sod/Tazobactam Sod (Zosyn 3.375 In Ns 100ml) 100 mls @ 200 mls/hr IVPB STAT STA PRN Reason: Protocol Stop: 06/22/17 22:54 - Scribe Statement The provider has reviewed the documentation as recorded by the Yesica Figuerao Provider Scribe Attestation: All medical record entries made by the Scribe were at my direction and personally dictated by me. I have reviewed the chart and agree that the record accurately reflects my personal performance of the history, physical exam, medical decision making, and the department course for this patient. I have also personally directed, reviewed, and agree with the discharge instructions and disposition. Disposition/Present on Arrival - Present on Arrival Any Indicators Present on Arrival: Yes History of DVT/PE: No History of Uncontrolled Diabetes: No Urinary Catheter: Yes History of Decub. Ulcer: Yes History Surgical Site Infection Following: None - Disposition Have Diagnosis and Disposition been Completed?: Yes Diagnosis: Sacral decubitus ulcer Disposition Time: 22:05 Condition: STABLE Referrals: Ishan Dominguez MD [Primary Care Provider] - Follow up with primary Forms: [employer] (Japanese)
[2017-06-22 22:52] LABS: BASO # 0.02 K/mm3 (0.0-2.0); BASO % 0.2 % (0.0-3.0); EOS % 0.1 % (1.5-5.0); GRAN # 11.02 (1.4-6.5); GRAN % 83.9 % (50.0-68.0); HEMOGLOBIN 13.2 g/dL (14.0-18.0); LYMPH % 7.2 % (22.0-35.0); MEAN CELL VOLUME 80.7 fl (80.0-105.0); MEAN CORPUSCULAR HGB CONC 32.3 g/dl (31.0-37.0); MEAN PLATELET VOLUME 10.8 fl (7.0-11.0); MONO # 1.1 (0.1-0.6); MONO % 8.6 % (1.0-6.0); RBC 5.07 10^6/uL (3.5-6.1); RED CELL DISTRIBUTION WIDTH 17.6 % (11.5-14.5); WHITE BLOOD COUNT 13.1 10^3/ul (4.5-11.0)
[2017-06-22 23:07] LABS: ALB/GLOB RATIO 0.9 (1.1-1.8); ALBUMIN 4.2 g/dL (3.0-4.8); CALCIUM 10.5 mg/dL (8.4-10.5)
[2017-06-22 23:29] LABS: PH,URINE >=9.0 (4.7-8.0); URINE BILIRUBIN NEGATIVE (NEGATIVE); URINE BLOOD MODERATE (NEGATIVE); URINE GLUCOSE (UA) NEGATIVE (NEGATIVE); URINE LEUKOCYTE ESTERASE LARGE Leu/uL (NEGATIVE); URINE PROTEIN >=300 mg/dL (<30 mg/dL); URINE UROBILINOGEN 0.2 E.U./dL (<1 E.U./dL)
--- NOTE | 2017-06-22 23:36 | CP.PCM.HP ---
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 Pt was recently admitted 1 month ago for similar complaints. Pt received surgical debridement and IV antibiotics during that admission. Pt was eventually discharged to [facility] where he continued abx therapy and wound care. Pt was discharged from [facility] 1 week ago with home health services. During wound vac change, patient noticed foul smell from decubitus ulcer. At that time, patient decided to come to [facility] [place] to be evaluated. Pt is also complaining of fatigue, dizziness, and poor urine output per haque. Pt states that indwelling catheter is changed monthly, most recently 5 days ago. Pt has a colectomy due to ulcer. Pt denies any pain as he has no sensation b/l below groin. Pt denies CP, SOB, n/ v, abdominal pain, fever, chills, or REINA. PMD: Dr. Ishan Dominguez PMH: paraplegic, spinal abcess, DVT, HTN Surg: laminectomy, colostomy All: cephalosporins FHx: non contributory SH: Former 1 ppd tobacco use (quit 1 yr ago) and daily EtOH use; denies illicit drug use Medications: Baclofen, Neurontin, Coumadin Present on Admission - Present on Admission Any Indicators Present on Admission: No Review of Systems - Review of Systems Review of Systems: 12 point ROS reviewed and is negative other than what is stated in HPI. Past Patient History - Infectious Disease Hx of Infectious Diseases: None - Past Social History Smoking Status: Former Smoker - CARDIAC Hx Cardiac Disorders: No - PULMONARY Hx Respiratory Disorders: No - NEUROLOGICAL Hx Neurological Disorder: Yes Other/Comment: paraplegic - HEENT Hx HEENT Problems: No - RENAL Hx Chronic Kidney Disease: No - ENDOCRINE/METABOLIC Hx Endocrine Disorders: No - HEMATOLOGICAL/ONCOLOGICAL Hx Blood Disorders: Yes Hx Anemia: Yes (H/O BLOOD TRANSFUSION) - INTEGUMENTARY Hx Dermatological Problems: Yes Other/Comment: 05-26-17 PRESSURE SACRAL ULCER-HEALING WOUND BUT HAS 2 OPEN WOUND STAGE 2 1 CM IN DM. RIGHT BUTTOCK PRESSURE ULCER WITH OPEN WOUND SMOOTH EDGES, WOUND VAC AT HOME,NON HEALING WOUND.DEPTH OF 5 CM WITH INDURATION OF 3.5 AT 12 OCLOCK.WOUND BED HAS MOIST BLACK FILM NECROTIC TISSUE. LEFT HEEL HAS A PRESSURE ULCER BLACKENED NECROTIC TISSUE COVERING WHOLE WOUND.MEASURES 3 X 4 CM. - MUSCULOSKELETAL/RHEUMATOLOGICAL Hx Musculoskeletal Disorders: Yes Hx Falls: No Other/Comment: paraplegic - GASTROINTESTINAL Hx Gastrointestinal Disorders: Yes (COLOSTOMY LEFT.) Hx Colostomy: Yes - GENITOURINARY/GYNECOLOGICAL Hx Genitourinary Disorders: Yes Hx Incontinence: Yes Other/Comment: has haque and diaper - PSYCHIATRIC Hx Psychophysiologic Disorder: No Hx Substance Use: No - SURGICAL HISTORY Other/Comment: colostomy bag - ANESTHESIA Hx Anesthesia Reactions: No Hx Malignant Hyperthermia: No Meds Allergies/Adverse Reactions: Allergies Allergy/AdvReac Type Severity Reaction Status Date / Time ceftriaxone [From Rocephin] AdvReac Mild BURNING AT Verified 05/26/17 16:46 IV SITE Cephalosporins AdvReac Mild BURNING AT Verified 05/26/17 16:46 IV SITE Physical Exam - Constitutional Appears: No Acute Distress - Head Exam Head Exam: NORMAL INSPECTION - Eye Exam Eye Exam: Normal appearance - Neck Exam Neck exam: Positive for: Normal Inspection - Respiratory Exam Respiratory Exam: Clear to Auscultation Bilateral. absent: Rales, Rhonchi, Wheezes - Cardiovascular Exam Cardiovascular Exam: RRR, +S1, +S2. absent: Diastolic murmur, Gallop, Rubs, Systolic Murmur - GI/Abdominal Exam GI & Abdominal Exam: Soft. absent: Distended, Guarding, Rebound, Tenderness Additional comments: left sided colostomy with lott colored stool; colostomy stump pink with no signs of erythema - Extremities Exam Additional comments: Stage 4 decubitus ulcer ~3 cm - Back Exam Back exam: NORMAL INSPECTION - Neurological Exam Neurological exam: Alert, CN II-XII Intact, Oriented x3 Additional comments: No sensation below waist, 0/4 strength LE b/l, UE motor and sensation intact - Psychiatric Exam Psychiatric exam: Normal Affect, Normal Mood - Skin Skin Exam: Dry, Intact, Normal Color, Warm Results - Vital Signs Recent Vital Signs: Last Vital Signs Temp 97.7 F 06/22/17 21:01 Pulse 95 H 06/22/17 21:01 Resp 18 06/22/17 21:01 BP 146/77 03/26/18 21:01 Pulse Ox 100 06/22/17 21:01 - Labs Result Diagrams: 06/22/17 22:30 06/22/17 22:30 Labs: Laboratory Results - last 24 hr 06/22/17 06/22/17 22:30 22:30 WBC 13.1 H D RBC 5.07 Hgb 13.2 L D Hct 40.9 L MCV 80.7 D MCH 26.0 MCHC 32.3 RDW 17.6 H Plt Count 282 MPV 10.8 Gran % 83.9 H Lymph % (Auto) 7.2 L [place] % (Auto) 8.6 H Eos % (Auto) 0.1 L Baso % (Auto) 0.2 Gran # 11.02 H Lymph # (Auto) 1.0 L [place] # (Auto) 1.1 H Eos # (Auto) 0.0 Baso # (Auto) 0.02 Sodium 139 Potassium 5.3 H Chloride 99 Carbon Dioxide 25 Anion Gap 20 BUN 46 H Creatinine 1.7 H Est GFR ( Amer) 51 Est GFR (Non-Af Amer) 43 Random Glucose 132 H Calcium 10.5 Total Bilirubin 0.5 AST 24 ALT 22 Alkaline Phosphatase 90 Total Protein 8.6 H Albumin 4.2 Globulin 4.5 Albumin/Globulin Ratio 0.9 L Assessment & Plan - Assessment and Plan (Free Text) Assessment: 52 yo M with PMH of 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 Plan: 1. Right ischial decubitus ulcer, Stage 4 - Surgery consulted - ID consulted - Wound Care consulted - Zosyn started; wound culture from recent admission sensitive to zosyn - Air mattress - Turns q2h - NPO - F/u blood, urine, and wound cultures 2. UTI - Afebrile, leukocytosis - UA shows positive nitrates and large leukocyte esterase - Zosyn - F/u urine cultures 3. LOLA - BUN/Cr ratio consistent with prerenal nephropathy - Bladder scan - Monitor intake and output - IVF - Cont to monitor 4. Hyperkalemia - K 5.3 likely 2/2 dehydration - IVF started - EKG ordered - Cont to monitor 5. H/o DVT - Cont coumadin - INR ordered GI/DVT PPx - Protonix - Coumadin, SCDs Pt seen and discussed in detail with Dr. Jones. Bobby Saucedo, PGY1 <Naun Jones - Last Filed: 06/23/17 02:14> Results - Vital Signs Recent Vital Signs: Last Vital Signs Temp 97.7 F 06/22/17 21:01 Pulse 92 H 06/22/17 23:22 Resp 18 06/22/17 23:22 BP 110/84 06/22/17 23:22 Pulse Ox 96 06/22/17 23:22 - Labs Result Diagrams: 06/22/17 22:30 06/22/17 22:30 Labs: Laboratory Results - last 24 hr 06/22/17 06/22/17 06/22/17 22:30 22:30 22:30 WBC 13.1 H D RBC 5.07 Hgb 13.2 L D Hct 40.9 L MCV 80.7 D MCH 26.0 MCHC 32.3 RDW 17.6 H Plt Count 282 MPV 10.8 Gran % 83.9 H Lymph % (Auto) 7.2 L [place] % (Auto) 8.6 H Eos % (Auto) 0.1 L Baso % (Auto) 0.2 Gran # 11.02 H Lymph # (Auto) 1.0 L [place] # (Auto) 1.1 H Eos # (Auto) 0.0 Baso # (Auto) 0.02 PT 29.5 H INR 2.52 H APTT 38.0 H Sodium 139 Potassium 5.3 H Chloride 99 Carbon Dioxide 25 Anion Gap 20 BUN 46 H Creatinine 1.7 H Est GFR ( Amer) 51 Est GFR (Non-Af Amer) 43 Random Glucose 132 H Calcium 10.5 Total Bilirubin 0.5 AST 24 ALT 22 Alkaline Phosphatase 90 Total Protein 8.6 H Albumin 4.2 Globulin 4.5 Albumin/Globulin Ratio 0.9 L Urine Color Urine Appearance Urine pH Ur Specific [place] Urine Protein Urine Glucose (UA) Urine Ketones Urine Blood Urine Nitrate Urine Bilirubin Urine Urobilinogen Ur Leukocyte Esterase Urine RBC Urine WBC Ur Epithelial Cells Triple Phos Crystals Urine Bacteria 06/22/17 23:14 WBC RBC Hgb Hct MCV MCH MCHC RDW Plt Count MPV Gran % Lymph % (Auto) [place] % (Auto) Eos % (Auto) Baso % (Auto) Gran # Lymph # (Auto) [place] # (Auto) Eos # (Auto) Baso # (Auto) PT INR APTT Sodium Potassium Chloride Carbon Dioxide Anion Gap BUN Creatinine Est GFR ( Amer) Est GFR (Non-Af Amer) Random Glucose Calcium Total Bilirubin AST ALT Alkaline Phosphatase Total Protein Albumin Globulin Albumin/Globulin Ratio Urine Color Yellow Urine Appearance Cloudy Urine pH >=9.0 Ur Specific [place] <= 1.005 Urine Protein >=300 H Urine Glucose (UA) Negative Urine Ketones Negative Urine Blood Moderate H Urine Nitrate Positive H Urine Bilirubin Negative Urine Urobilinogen 0.2 Ur Leukocyte Esterase Large H Urine RBC 10 - 15 Urine WBC 10 - 15 Ur Epithelial Cells 0 - 2 Triple Phos Crystals Many Urine Bacteria Many Attending/Attestation - Attestation I have personally seen and examined this patient.: Yes I have fully participated in the care of the patient.: Yes I have reviewed all pertinent clinical information: Yes Notes (Text): 06/23/17 02:13 Patient was seen when he was in bed # 21 in the ER. Agree with history , physical examination, assessment and plan. Following should be noted. Foul smelling right ischial decubitus ulcer/wound. Anemia. Paraplegia. Colostomy. Urinary incontinence. Leukocytosis. Borderline anemia. Hyperkalemia. Renal insufficiency. HTN. Myopia. Leukocytosis. Borderline anemia. History T2 abscess. History I & D abscess T2. History laminectomy. History DVT. Family history DM.Mother , sister. Tobacco abuse history. Alcohol consuomption history. Family history of coronary disease-sister.
[2017-06-22 23:41] LABS: URINE APPEARANCE CLOUDY (CLEAR); URINE COLOR YELLOW (YELLOW)
[2017-06-22 23:49] LABS: URINE BACTERIA MANY (NEG); URINE EPITHELIAL CELLS 0 - 2 /hpf (0-5); URINE TRIPLE PHOSPHATE CRYSTAL MANY /hpf
[2017-06-23 00:12] LABS: INR 2.52 (0.93-1.08); PROTHROMBIN TIME 29.5 SECONDS (9.4-12.5)
[2017-06-23 05:42] VITALS: BMI 26.2
--- NOTE | 2017-06-23 06:08 | CP.PCM.CON ---
History of Present Illness - History of Present Illness History of Present Illness: Surgery Consult for Dr. Askew CC: ischial wound 52 year old paraplegic male presents with a foul smell from known right ischial pressure ulcer, which has been treated at home with a wound vac for the past month. He was recently admitted about 1 month prior for similar issue due to necrosis and foul odor of the pressure ulcer in which he underwent debridement and given antibiotics. He was discharged to [facility] for continuation of abx and was discharge home about 1 week ago from [facility]. He states during the wound vac change he noticed foull smell which prompted visit. Patient is not complaining of any pain at the ulcer site, due to his paraplegia. Patient also denies fever , chills, nausea, vomiting. PMH: Paraplegia since June 2016, neurogenic bladder, DVT, PE PSHx: ostomy, laminectomy, neurogenic bladder with haque, IVC filter, multiple sacral wound debridements Social Hx: cocaine abuse prior Family History: noncontributory Review of Systems - Review of Systems All systems: reviewed and no additional remarkable complaints except Review of Systems: unless stated in HPI Past Patient History - Infectious Disease Hx of Infectious Diseases: None - Past Social History Smoking Status: Former Smoker - CARDIAC Hx Cardiac Disorders: No - PULMONARY Hx Respiratory Disorders: No - NEUROLOGICAL Hx Neurological Disorder: Yes Other/Comment: paraplegic - HEENT Hx HEENT Problems: No - RENAL Hx Chronic Kidney Disease: No - ENDOCRINE/METABOLIC Hx Endocrine Disorders: No - HEMATOLOGICAL/ONCOLOGICAL Hx Blood Disorders: Yes Hx Anemia: Yes (H/O BLOOD TRANSFUSION) - INTEGUMENTARY Hx Dermatological Problems: Yes Other/Comment: 05-26-17 PRESSURE SACRAL ULCER-HEALING WOUND BUT HAS 2 OPEN WOUND STAGE 2 1 CM IN DM. RIGHT BUTTOCK PRESSURE ULCER WITH OPEN WOUND SMOOTH EDGES, WOUND VAC AT HOME,NON HEALING WOUND.DEPTH OF 5 CM WITH INDURATION OF 3.5 AT 12 OCLOCK.WOUND BED HAS MOIST BLACK FILM NECROTIC TISSUE. LEFT HEEL HAS A PRESSURE ULCER BLACKENED NECROTIC TISSUE COVERING WHOLE WOUND.MEASURES 3 X 4 CM. - MUSCULOSKELETAL/RHEUMATOLOGICAL Hx Falls: No - GASTROINTESTINAL Hx Gastrointestinal Disorders: Yes (COLOSTOMY LEFT.) Hx Colostomy: Yes - GENITOURINARY/GYNECOLOGICAL Hx Genitourinary Disorders: Yes Hx Incontinence: Yes Other/Comment: has haque and diaper - PSYCHIATRIC Hx Psychophysiologic Disorder: No Hx Substance Use: No - SURGICAL HISTORY Other/Comment: colostomy bag - ANESTHESIA Hx Anesthesia Reactions: No Hx Malignant Hyperthermia: No Meds Allergies/Adverse Reactions: Allergies Allergy/AdvReac Type Severity Reaction Status Date / Time ceftriaxone [From Rocephin] AdvReac Mild BURNING AT Verified 05/26/17 16:46 IV SITE Cephalosporins AdvReac Mild BURNING AT Verified 05/26/17 16:46 IV SITE - Medications Medications: Current Medications Baclofen (Lioresal) 20 mg PO BID DONAL Gabapentin (Neurontin) 300 mg PO BID DONAL PRN Reason: Protocol Sodium Chloride (Sodium Chloride 0.9%) 1,000 mls @ 125 mls/hr IV .Q8H DONAL Last Admin: 06/23/17 00:00 Dose: 125 mls/hr Piperacillin Sod/Tazobactam Sod (Zosyn 2.25 Gm In 0.9% 100 Ml) 2.25 gm in 100 mls @ 100 mls/hr IVPB Q6 DONAL PRN Reason: Protocol Stop: 06/23/17 12:59 Pantoprazole Sodium (Protonix Inj) 40 mg IVP DAILY DONAL Warfarin Sodium (Coumadin) 6 mg PO 1800 DONAL PRN Reason: Protocol Physical Exam - Constitutional Appears: Non-toxic, No Acute Distress - Head Exam Head Exam: ATRAUMATIC, NORMOCEPHALIC - Eye Exam Eye Exam: EOMI, Normal appearance - ENT Exam ENT Exam: Mucous Membranes Moist - Respiratory Exam Respiratory Exam: NORMAL BREATHING PATTERN. absent: Respiratory Distress - Cardiovascular Exam Cardiovascular Exam: REGULAR RHYTHM. absent: Tachycardia - Back Exam Additional comments: 3x4 circular ischial wound with undermining and extension deep, medial and lateral. nolasco fibrinous necrosis noted to base of wound. Skin edges appear healthy. Mild foul smelling odor from wound. Results - Vital Signs Recent Vital Signs: Last Vital Signs Temp 97.5 F L 06/23/17 02:29 Pulse 88 06/23/17 02:29 Resp 20 06/23/17 02:29 BP 127/99 H 06/23/17 02:29 Pulse Ox 96 06/22/17 23:22 - Labs Result Diagrams: 06/23/17 07:00 06/23/17 07:00 Labs: Laboratory Results - last 24 hr 06/22/17 06/22/17 06/22/17 22:30 22:30 22:30 WBC 13.1 H D RBC 5.07 Hgb 13.2 L D Hct 40.9 L MCV 80.7 D MCH 26.0 MCHC 32.3 RDW 17.6 H Plt Count 282 MPV 10.8 Gran % 83.9 H Lymph % (Auto) 7.2 L [place] % (Auto) 8.6 H Eos % (Auto) 0.1 L Baso % (Auto) 0.2 Gran # 11.02 H Lymph # (Auto) 1.0 L [place] # (Auto) 1.1 H Eos # (Auto) 0.0 Baso # (Auto) 0.02 PT 29.5 H INR 2.52 H APTT 38.0 H Sodium 139 Potassium 5.3 H Chloride 99 Carbon Dioxide 25 Anion Gap 20 BUN 46 H Creatinine 1.7 H Est GFR ( Amer) 51 Est GFR (Non-Af Amer) 43 Random Glucose 132 H Calcium 10.5 Total Bilirubin 0.5 AST 24 ALT 22 Alkaline Phosphatase 90 Total Protein 8.6 H Albumin 4.2 Globulin 4.5 Albumin/Globulin Ratio 0.9 L Urine Color Urine Appearance Urine pH Ur Specific [place] Urine Protein Urine Glucose (UA) Urine Ketones Urine Blood Urine Nitrate Urine Bilirubin Urine Urobilinogen Ur Leukocyte Esterase Urine RBC Urine WBC Ur Epithelial Cells Triple Phos Crystals Urine Bacteria 06/22/17 23:14 WBC RBC Hgb Hct MCV MCH MCHC RDW Plt Count MPV Gran % Lymph % (Auto) [place] % (Auto) Eos % (Auto) Baso % (Auto) Gran # Lymph # (Auto) [place] # (Auto) Eos # (Auto) Baso # (Auto) PT INR APTT Sodium Potassium Chloride Carbon Dioxide Anion Gap BUN Creatinine Est GFR ( Amer) Est GFR (Non-Af Amer) Random Glucose Calcium Total Bilirubin AST ALT Alkaline Phosphatase Total Protein Albumin Globulin Albumin/Globulin Ratio Urine Color Yellow Urine Appearance Cloudy Urine pH >=9.0 Ur Specific [place] <= 1.005 Urine Protein >=300 H Urine Glucose (UA) Negative Urine Ketones Negative Urine Blood Moderate H Urine Nitrate Positive H Urine Bilirubin Negative Urine Urobilinogen 0.2 Ur Leukocyte Esterase Large H Urine RBC 10 - 15 Urine WBC 10 - 15 Ur Epithelial Cells 0 - 2 Triple Phos Crystals Many Urine Bacteria Many Assessment & Plan - Assessment and Plan (Free Text) Assessment: 52 y/o male w/ chronic ischial wound Plan: -dakins soak gauze packing to wound BID, cover with optifoam -may need further debridement -ok for DVT ppx -ok for diet -tentatively plan for debridement, will need to hold coumadin, if able, prior to OR -further recs per Dr. Azar Barron PGY3 - Date & Time Date: 06/23/17 Time: 06:10
[2017-06-23] MEDS: Piperacillin/Tazobact 2.25gm 2.25 GM/100 ML BAG IVPB SCH ×2 (06:42→11:25)
[2017-06-23 07:23] LABS: HEMOGLOBIN 11.7 g/dL (14.0-18.0); MEAN CELL VOLUME 80.1 fl (80.0-105.0); MEAN CORPUSCULAR HEMOGLOBIN 25.8 pg (25.0-35.0); MEAN CORPUSCULAR HGB CONC 32.2 g/dl (31.0-37.0); MEAN PLATELET VOLUME 10.9 fl (7.0-11.0); RBC 4.53 10^6/uL (3.5-6.1); RED CELL DISTRIBUTION WIDTH 17.6 % (11.5-14.5); WHITE BLOOD COUNT 10.9 10^3/ul (4.5-11.0)
[2017-06-23] MEDS ORDERED: Sod Polystyrene Sulf 15 gm/60 ml Susp PO ONE ×2 (07:38→11:23)
[2017-06-23 07:49] LABS: ALB/GLOB RATIO 0.9 (1.1-1.8); ALBUMIN 3.5 g/dL (3.0-4.8); ALT/SGPT 18 U/L (7-56); AST/SGOT 17 U/L (17-59); BLOOD UREA NITROGEN 41 mg/dL (7-21); CALCIUM 9.4 mg/dL (8.4-10.5); GFR AFRICAN-AMERICAN > 60; GFR NON-AFRICAN AMERICAN > 60
[2017-06-23] MEDS ORDERED: Influenza Vaccine 60 mcg/0.5 mL SYR (4YR UP) IM ONE (10:48)
[2017-06-23] MEDS ORDERED: Pneumococcal 23-Valent Vaccine IM ONE (10:48)
[2017-06-23] MEDS: Zinc Oxide Topical 40% Oint (Desitin) TOP SCH ×2 (12:55→15:47)
[2017-06-23] MEDS: Sodium Chloride 0.9% 1,000 ML IV SCH ×2 (17:20)
[2017-06-23] MEDS ORDERED: Piperacillin/Tazobact 3.375 gm 100 ML IVPB SCH (18:00)
[2017-06-24] MEDS: Sodium Chloride 0.9% 1,000 ML IV SCH (03:30)
[2017-06-24] MEDS: Zinc Oxide Topical 40% Oint (Desitin) TOP SCH ×2 (03:54→09:47)
[2017-06-24] MEDS: Meropenem IV 1 gm in NS 50 ML IVPB SCH ×3 (06:14→21:49)
[2017-06-24 07:07] LABS: HEMOGLOBIN 9.4 g/dL (14.0-18.0); MEAN CELL VOLUME 81.8 fl (80.0-105.0); MEAN CORPUSCULAR HEMOGLOBIN 25.5 pg (25.0-35.0); MEAN CORPUSCULAR HGB CONC 31.2 g/dl (31.0-37.0); RBC 3.68 10^6/uL (3.5-6.1); RED CELL DISTRIBUTION WIDTH 17.7 % (11.5-14.5); WHITE BLOOD COUNT 7.7 10^3/ul (4.5-11.0)
--- NOTE | 2017-06-24 07:12 | CON ---
DATE: 06/23/2017 The patient was seen earlier today in 568, bed 2. CHIEF COMPLAINT: Breakdown of sacral decubitus infection. HISTORY OF PRESENT ILLNESS: This is a 52-year-old male, who is paraplegic with a colostomy bag and a Mackenzie catheter. 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 He lives with his sister. PAST MEDICAL HISTORY: Significant for being paraplegic, Strep viridans vertebral abscess, decubitus ulcer, and chronic Mackenzie catheter. PAST SURGICAL HISTORY: Significant for colostomy. SOCIAL HISTORY: The patient has no recent travel. ALLERGIES: HE IS ALLERGIC TO CEFTRIAXONE AND CEPHALOSPORINS. MEDICATIONS AT HOME: Include Coumadin and Neurontin. PHYSICAL EXAMINATION: GENERAL: On examination, he is in bed. He answers questions appropriately. He is bed-ridden. VITAL SIGNS: Temperature of 97; heart rate of 92, it is up to 95; respiratory rate of 20; blood pressure is 120/70 and saturation of 98%. HEENT: Unremarkable. NECK: Supple. LUNGS: Decreased breath sounds. HEART: Normal S1 and S2. ABDOMEN: Soft, nontender. Examination of the stage IV decubitus ulcer. LABORATORY DATA: Reveals a white count of 13,100, hemoglobin of 13, and platelets of 282. Coagulation is noted, and chemistry reveals a creatinine of 1.7. His creatinine last admission was 0.8 and his creatinine today is corrected down to 1.1. Urinalysis reveals 10-15 wbc's, many bacteria. Microbiology is pending. Dr. Roman's consultation is reviewed. ASSESSMENT AND PLAN: This is a 52-year-old male with a history of streptococcal pneumonia vertebral abscess and paraplegic with colostomy and chronic Mackenzie catheter, admitted with tachycardia, leukocytosis, and severe sepsis secondary to infected sacral decubitus ulcer and urine as a source with acute kidney injury, creatinine has changed from last admission of 0.7 to 1.7 and the patient was paraplegic. We are going to treat the patient with meropenem and Zyvox. Pending wound cultures and urine cultures, we will make further recommendations based on panculture results. Overall prognosis as already advised is poor for this patient. He will use Zyvox. The patient has tolerated meropenem in the past. Colt Coronel MD [facility] # [id number]
[2017-06-24 07:17] LABS: INR 2.73 (0.93-1.08); PROTHROMBIN TIME 32.1 SECONDS (9.4-12.5)
[2017-06-24 07:23] LABS: ALB/GLOB RATIO 0.9 (1.1-1.8); ALBUMIN 3.1 g/dL (3.0-4.8); ALT/SGPT 20 U/L (7-56); AST/SGOT 14 U/L (17-59); BLOOD UREA NITROGEN 14 mg/dL (7-21); GFR AFRICAN-AMERICAN > 60; GFR NON-AFRICAN AMERICAN > 60
--- NOTE | 2017-06-24 12:26 | CP.PCM.PN ---
Subjective - Date & Time of Evaluation Date of Evaluation: 06/24/17 Time of Evaluation: 12:23 - Subjective Subjective: Surgery: Dr. Askew Patient doing well. Denies any complaints. Objective - Vital Signs/Intake and Output Vital Signs (last 24 hours): Temp Pulse Resp BP Pulse Ox 97.3 F L 72 20 111/69 98 06/24/17 07:30 06/24/17 07:30 06/24/17 07:30 06/24/17 07:30 06/24/17 07:30 Intake and Output: 06/24/17 06/24/17 06:59 18:59 Intake Total 1080 Output Total 2300 Balance -1220 - Medications Medications: Current Medications Ascorbic Acid (Vitamin C 500 Mg Tab) 500 mg PO DAILY [facility] Last Admin: 06/24/17 09:47 Dose: 500 mg Baclofen (Lioresal) 20 mg PO BID [facility] Last Admin: 06/24/17 09:47 Dose: 20 mg Gabapentin (Neurontin) 300 mg PO BID [facility] PRN Reason: Protocol Last Admin: 06/24/17 09:47 Dose: 300 mg Meropenem (Merrem Iv 1 Gm Premix) 50 mls @ 100 mls/hr IVPB Q8 [facility] PRN Reason: Protocol Stop: 07/02/17 06:01 Last Admin: 06/24/17 06:14 Dose: 100 mls/hr Linezolid (Zyvox) 600 mg PO BID [facility] PRN Reason: Protocol Stop: 07/02/17 22:16 Last Admin: 06/24/17 09:47 Dose: 600 mg Pantoprazole Sodium (Protonix Ec Tab) 40 mg PO ACB [facility] Petrolatum (Desitin Maximum Strength Topical 40% Oint) 0 gm TOP Q4H [facility] Last Admin: 06/24/17 09:47 Dose: Not Given Sodium Hypochlorite (Dakins Solution 0.25%) 0 ml TOP DAILY [facility] Warfarin Sodium (Coumadin) 6 mg PO 1800 [facility] PRN Reason: Protocol Last Admin: 06/23/17 17:15 Dose: 6 mg - Labs Labs: 06/24/17 06:35 06/24/17 06:35 PT 32.1 SECONDS (9.4-12.5) H 06/24/17 06:35 INR 2.73 (0.93-1.08) H 06/24/17 06:35 APTT 38.0 Seconds (25.1-36.5) H 06/22/17 22:30 - Constitutional Appears: Well, Non-toxic, No Acute Distress - Head Exam Head Exam: ATRAUMATIC, NORMOCEPHALIC - Eye Exam Eye Exam: EOMI, Normal appearance - ENT Exam ENT Exam: Mucous Membranes Moist - Respiratory Exam Respiratory Exam: NORMAL BREATHING PATTERN. absent: Respiratory Distress - Cardiovascular Exam Cardiovascular Exam: REGULAR RHYTHM. absent: Tachycardia - Exam Additional comments: ischial wound right, clean base and wound edges. No odor. no drainage. - Neurological Exam Neurological Exam: Alert, Awake, Oriented x3 - Skin Skin Exam: Dry, Warm Assessment and Plan - Assessment and Plan (Free Text) Assessment: 52 y/o male paraplegic w/ right ischial ulcer Plan: -cont local wound care -f/u cultures -no need for further debridement -once discharged, home nursing can place wound vac -no further recs at this time -d/w Dr. Azar Barron PGY3
--- NOTE | 2017-06-24 18:11 | CP.PCM.CON ---
<Xiomara Canales - Last Filed: 06/24/17 18:08> History of Present Illness - History of Present Illness History of Present Illness: 52 y/o male known to the wound care center service seen with attending Dr. Jalloh regarding left heel ulceration. Pt came into ED for foul smelling sacral decubitus ulceration. States his foot ulcer dressing was last changed one week ago by visiting nurses. He denies noting any foul smell coming from the foot. Denies any F/C/N/V/CP/SOB. Denies any recent falls or trauma. Review of Systems - Review of Systems All systems: reviewed and no additional remarkable complaints except (per HPI) Past Patient History - Infectious Disease Hx of Infectious Diseases: None - Past Social History Smoking Status: Former Smoker - CARDIAC Hx Cardiac Disorders: No - PULMONARY Hx Respiratory Disorders: No - NEUROLOGICAL Hx Neurological Disorder: Yes Other/Comment: paraplegic - HEENT Hx HEENT Problems: No - RENAL Hx Chronic Kidney Disease: No - ENDOCRINE/METABOLIC Hx Endocrine Disorders: No - HEMATOLOGICAL/ONCOLOGICAL Hx Blood Disorders: Yes Hx Anemia: Yes (H/O BLOOD TRANSFUSION) - INTEGUMENTARY Hx Dermatological Problems: Yes Other/Comment: 05-26-17 PRESSURE SACRAL ULCER-HEALING WOUND BUT HAS 2 OPEN WOUND STAGE 2 1 CM IN DM. RIGHT BUTTOCK PRESSURE ULCER WITH OPEN WOUND SMOOTH EDGES, WOUND VAC AT HOME,NON HEALING WOUND.DEPTH OF 5 CM WITH INDURATION OF 3.5 AT 12 OCLOCK.WOUND BED HAS MOIST BLACK FILM NECROTIC TISSUE. LEFT HEEL HAS A PRESSURE ULCER BLACKENED NECROTIC TISSUE COVERING WHOLE WOUND.MEASURES 3 X 4 CM. - MUSCULOSKELETAL/RHEUMATOLOGICAL Hx Falls: No - GASTROINTESTINAL Hx Gastrointestinal Disorders: Yes (COLOSTOMY LEFT.) Hx Colostomy: Yes - GENITOURINARY/GYNECOLOGICAL Hx Genitourinary Disorders: Yes Hx Incontinence: Yes Other/Comment: has hauqe and diaper - PSYCHIATRIC Hx Psychophysiologic Disorder: No Hx Substance Use: No - SURGICAL HISTORY Other/Comment: colostomy bag - ANESTHESIA Hx Anesthesia Reactions: No Hx Malignant Hyperthermia: No Meds Allergies/Adverse Reactions: Allergies Allergy/AdvReac Type Severity Reaction Status Date / Time ceftriaxone [From Rocephin] AdvReac Mild BURNING AT Verified 05/26/17 16:46 IV SITE Cephalosporins AdvReac Mild BURNING AT Verified 05/26/17 16:46 IV SITE - Medications Medications: Current Medications Ascorbic Acid (Vitamin C 500 Mg Tab) 500 mg PO DAILY [facility] Last Admin: 06/24/17 09:47 Dose: 500 mg Baclofen (Lioresal) 20 mg PO BID [facility] Last Admin: 06/24/17 09:47 Dose: 20 mg Gabapentin (Neurontin) 300 mg PO BID [facility] PRN Reason: Protocol Last Admin: 06/24/17 09:47 Dose: 300 mg Meropenem (Merrem Iv 1 Gm Premix) 50 mls @ 100 mls/hr IVPB Q8 [facility] PRN Reason: Protocol Stop: 07/02/17 06:01 Last Admin: 06/24/17 14:23 Dose: 100 mls/hr Linezolid (Zyvox) 600 mg PO BID [facility] PRN Reason: Protocol Stop: 07/02/17 22:16 Last Admin: 06/24/17 09:47 Dose: 600 mg Pantoprazole Sodium (Protonix Ec Tab) 40 mg PO ACB [facility] Petrolatum (Desitin Maximum Strength Topical 40% Oint) 0 gm TOP Q4H [facility] Last Admin: 06/24/17 09:47 Dose: Not Given Sodium Hypochlorite (Dakins Solution 0.25%) 0 ml TOP DAILY [facility] Warfarin Sodium (Coumadin) 6 mg PO 1800 [facility] PRN Reason: Protocol Last Admin: 06/23/17 17:15 Dose: 6 mg Physical Exam - Constitutional Appears: Well, Non-toxic, No Acute Distress - Extremities Exam Additional comments: Left lower extremity focused exam: Vasc: DP/PT pulses palpable 2/4. Temperature gradient warm to cool. CFT < 3 sec to all digits. No pedal edema Derm: 2 cm x 2.5cm x 0.2cm open ulceration noted to plantar lateral heel. Malodor present. Wound base is a mixture of fibrous and granular tissue. Wound borders exhibit no erythema or maceration. No tunneling or undermining, no fluctuance. Neuro: Protective sensation mildly diminished Ortho: Involuntary muscle spasms noted secondary to paraplegia - Neurological Exam Neurological exam: Alert, Oriented x3 - Psychiatric Exam Psychiatric exam: Normal Affect, Normal Mood Results - Vital Signs Recent Vital Signs: Last Vital Signs Temp 97.3 F L 06/24/17 07:30 Pulse 72 06/24/17 07:30 Resp 20 06/24/17 07:30 BP 111/69 06/24/17 07:30 Pulse Ox 98 06/24/17 07:30 - Labs Result Diagrams: 06/24/17 06:35 06/24/17 06:35 Labs: Laboratory Results - last 24 hr 06/24/17 06/24/17 06/24/17 06:35 06:35 06:35 WBC 7.7 D RBC 3.68 Hgb 9.4 L D Hct 30.1 L MCV 81.8 MCH 25.5 MCHC 31.2 RDW 17.7 H Plt Count 204 MPV 11.0 PT 32.1 H INR 2.73 H Sodium 143 Potassium 3.7 Chloride 109 H Carbon Dioxide 27 Anion Gap 11 BUN 14 Creatinine 0.7 L Est GFR ( Amer) > 60 Est GFR (Non-Af Amer) > 60 Random Glucose 92 Calcium 9.0 Phosphorus 2.5 Magnesium 1.9 Total Bilirubin 0.2 AST 14 L ALT 20 Alkaline Phosphatase 61 Total Protein 6.7 Albumin 3.1 Globulin 3.6 Albumin/Globulin Ratio 0.9 L Assessment & Plan - Assessment and Plan (Free Text) Assessment: 52 y/o male with left plantar lateral heel ulceration Plan: Seen and examined with Dr. Jalloh Labs and vitals reviewed- afebrile, 7.7 Wound cleansed with sterile saline Wound culture taken of left heel ulcer Dressed heel wound with maxorb and DSD Rx Multipodus boots - to be worn at all times in bed Continue IV abx as per ID Will continue to follow pt while in house <Patricia Jalloh - Last Filed: 06/26/17 15:42> Meds - Medications Medications: Current Medications Ascorbic Acid (Vitamin C 500 Mg Tab) 500 mg PO DAILY [facility] Last Admin: 06/26/17 09:26 Dose: 500 mg Baclofen (Lioresal) 20 mg PO BID [facility] Last Admin: 06/26/17 09:27 Dose: 20 mg Collagenase (Santyl) 0 gm TOP DAILY [facility] Last Admin: 06/26/17 09:27 Dose: 1 appful Gabapentin (Neurontin) 300 mg PO BID [facility] PRN Reason: Protocol Last Admin: 06/26/17 09:26 Dose: 300 mg Meropenem (Merrem Iv 1 Gm Premix) 50 mls @ 100 mls/hr IVPB Q8 [facility] PRN Reason: Protocol Stop: 07/02/17 06:01 Last Admin: 06/26/17 13:51 Dose: 100 mls/hr Pantoprazole Sodium (Protonix Ec Tab) 40 mg PO ACB [facility] Last Admin: 06/26/17 08:06 Dose: 40 mg Petrolatum (Desitin Maximum Strength Topical 40% Oint) 0 gm TOP Q4H [facility] Last Admin: 06/26/17 13:52 Dose: 1 applic Sodium Hypochlorite (Dakins Solution 0.25%) 0 ml TOP DAILY [facility] Last Admin: 06/26/17 09:25 Dose: 1 applic Warfarin Sodium (Coumadin) 6 mg PO 1800 [facility] PRN Reason: Protocol Last Admin: 06/25/17 17:08 Dose: 6 mg Results - Vital Signs Recent Vital Signs: Last Vital Signs Temp 97.7 F 06/26/17 08:30 Pulse 50 L 06/26/17 08:30 Resp 20 06/26/17 08:30 BP 122/69 06/26/17 08:30 Pulse Ox 97 06/26/17 08:30 - Labs Result Diagrams: 06/26/17 07:00 06/26/17 07:00 Labs: Laboratory Results - last 24 hr 06/26/17 06/26/17 06/26/17 07:00 07:00 07:00 WBC 5.1 RBC 3.85 Hgb 9.8 L Hct 31.5 L MCV 81.8 MCH 25.5 MCHC 31.1 RDW 17.3 H Plt Count 206 MPV 11.1 H PT 31.3 H INR 2.67 H Sodium 140 Potassium 4.1 Chloride 103 Carbon Dioxide 30 Anion Gap 10 BUN 13 Creatinine 0.7 L Est GFR ( Amer) > 60 Est GFR (Non-Af Amer) > 60 Random Glucose 90 Calcium 9.7 Phosphorus 3.7 Magnesium 1.7 Total Bilirubin 0.2 AST 18 ALT 23 Alkaline Phosphatase 66 Total Protein 7.1 Albumin 3.4 Globulin 3.8 Albumin/Globulin Ratio 0.9 L Attending/Attestation - Attestation I have personally seen and examined this patient.: Yes I have fully participated in the care of the patient.: Yes I have reviewed all pertinent clinical information: Yes Notes (Text): 06/26/17 15:42 I have seen and evaluated the patient; reviewed the chart and formulated the plan of care; agree with resident note
--- NOTE | 2017-06-24 22:08 | PN ---
DATE: 06/24/2017 SUBJECTIVE: The patient is in bed, in no acute distress, nontoxic. PHYSICAL EXAMINATION: VITAL SIGNS: Temperature is 97, blood pressure is 111/60, respiratory rate of 20. HEENT: Unremarkable. NECK: Supple. LUNGS: Decreased breath sounds. HEART: Normal S1 and S2. ABDOMEN: Soft, nontender. LABORATORY DATA: Reveals the white count of 7.7, hemoglobin of 9. Chemistries reveal the BUN of 11, creatinine of 0.7. Urinalysis is noted. Microbiology reveals a sacral decubitus with gram-negative doug and urine culture has a gram-negative doug. The blood cultures are reported to be negative. Review of orders revealed the patient to be on meropenem. ASSESSMENT AND PLAN: This is a 52-year-old male who was seen earlier this morning in [facility], bed 2 with a history of Streptococcus pneumonia, vertebral abscess as result paraplegic, has a colostomy and chronic Mackenzie catheter, admitted with tachycardia, leukocytosis, and severe sepsis secondary to an infected gram-negative doug decubitus ulcer and gram-negative doug in the urine with acute kidney injury and creatinine has changed originally from 0.7 to 1.7, currently on Zyvox and meropenem, awaiting for chronic culture results. The initial blood cultures are negative. We will check on the identification of gram-negative doug and we will make further recommendations. Colt Coronel MD
[2017-06-25] MEDS: Zinc Oxide Topical 40% Oint (Desitin) TOP SCH ×5 (03:53→19:24)
[2017-06-25] MEDS: Meropenem IV 1 gm in NS 50 ML IVPB SCH ×3 (05:10→21:35)
[2017-06-25 06:43] LABS: HEMOGLOBIN 9.2 g/dL (14.0-18.0); MEAN CELL VOLUME 81.8 fl (80.0-105.0); MEAN CORPUSCULAR HEMOGLOBIN 25.4 pg (25.0-35.0); MEAN CORPUSCULAR HGB CONC 31.1 g/dl (31.0-37.0); MEAN PLATELET VOLUME 10.6 fl (7.0-11.0); RBC 3.62 10^6/uL (3.5-6.1); RED CELL DISTRIBUTION WIDTH 17.5 % (11.5-14.5); WHITE BLOOD COUNT 5.3 10^3/ul (4.5-11.0)
[2017-06-25 07:08] LABS: ALB/GLOB RATIO 0.9 (1.1-1.8); ALBUMIN 3.2 g/dL (3.0-4.8); ALT/SGPT 20 U/L (7-56); AST/SGOT 16 U/L (17-59); BLOOD UREA NITROGEN 13 mg/dL (7-21); CALCIUM 9.2 mg/dL (8.4-10.5); GFR AFRICAN-AMERICAN > 60; GFR NON-AFRICAN AMERICAN > 60
--- NOTE | 2017-06-25 07:21 | CP.PCM.PN ---
<Laci Madden Ashlie - Last Filed: 06/25/17 07:22> Subjective - Date & Time of Evaluation Date of Evaluation: 06/24/17 Time of Evaluation: 07:00 - Subjective Subjective: Medicine progress note: Dr. Audelia Marc Patient was seen and examined at bedside. Patient denied any acute complaints, and no events overnight. Objective - Vital Signs/Intake and Output Vital Signs (last 24 hours): Temp Pulse Resp BP Pulse Ox 97.3 F L 72 20 111/69 98 06/24/17 07:30 06/24/17 07:30 06/24/17 07:30 06/24/17 07:30 06/24/17 07:30 Intake and Output: 06/25/17 06/25/17 06:59 18:59 Intake Total 1140 Output Total 1960 Balance -820 - Medications Medications: Current Medications Ascorbic Acid (Vitamin C 500 Mg Tab) 500 mg PO DAILY [facility] Last Admin: 06/24/17 09:47 Dose: 500 mg Baclofen (Lioresal) 20 mg PO BID [facility] Last Admin: 06/24/17 19:01 Dose: 20 mg Gabapentin (Neurontin) 300 mg PO BID [facility] PRN Reason: Protocol Last Admin: 06/24/17 19:01 Dose: 300 mg Meropenem (Merrem Iv 1 Gm Premix) 50 mls @ 100 mls/hr IVPB Q8 [facility] PRN Reason: Protocol Stop: 07/02/17 06:01 Last Admin: 06/25/17 05:10 Dose: 100 mls/hr Linezolid (Zyvox) 600 mg PO BID [facility] PRN Reason: Protocol Stop: 07/02/17 22:16 Last Admin: 06/24/17 19:01 Dose: 600 mg Pantoprazole Sodium (Protonix Ec Tab) 40 mg PO ACB [facility] Petrolatum (Desitin Maximum Strength Topical 40% Oint) 0 gm TOP Q4H [facility] Last Admin: 06/25/17 03:53 Dose: Not Given Sodium Hypochlorite (Dakins Solution 0.25%) 0 ml TOP DAILY [facility] Warfarin Sodium (Coumadin) 6 mg PO 1800 [facility] PRN Reason: Protocol Last Admin: 06/24/17 19:01 Dose: 6 mg - Labs Labs: 06/24/17 06:35 06/25/17 06:20 PT 32.1 SECONDS (9.4-12.5) H 06/24/17 06:35 INR 2.73 (0.93-1.08) H 06/24/17 06:35 APTT 38.0 Seconds (25.1-36.5) H 06/22/17 22:30 - Constitutional Appears: Well - Head Exam Head Exam: ATRAUMATIC, NORMAL INSPECTION, NORMOCEPHALIC - Eye Exam Eye Exam: EOMI, Normal appearance, PERRL Pupil Exam: NORMAL ACCOMODATION, PERRL - ENT Exam ENT Exam: Mucous Membranes Moist, Normal Exam - Neck Exam Neck Exam: Full ROM, Normal Inspection. absent: Lymphadenopathy - Respiratory Exam Respiratory Exam: Clear to Ausculation Bilateral, NORMAL BREATHING PATTERN - Cardiovascular Exam Cardiovascular Exam: REGULAR RHYTHM, +S1, +S2. absent: Murmur - GI/Abdominal Exam GI & Abdominal Exam: Soft, Normal Bowel Sounds. absent: Tenderness Additional comments: left sided colostomy with lott colored stool; colostomy stump pink with no signs of erythema - Rectal Exam Rectal Exam: NORMAL INSPECTION - Extremities Exam Extremities Exam: Full ROM, Normal Capillary Refill, Normal Inspection. absent : Joint Swelling, Pedal Edema - Back Exam Back Exam: NORMAL INSPECTION - Neurological Exam Neurological Exam: Alert, Awake, CN II-XII Intact, Normal Gait, Oriented x3 Additional comments: No sensation below waist, 0/4 strength LE b/l, UE motor and sensation intact - Psychiatric Exam Psychiatric exam: Normal Affect, Normal Mood - Skin Skin Exam: Dry, Intact, Normal Color, Warm - Additional Findings Additional findings: Stage 4 ischial decubitus ulcer ~3 cm Assessment and Plan - Assessment and Plan (Free Text) Assessment: Assessment and Plan 52 yo M with PMH of 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 1. Right ischial decubitus ulcer, Stage 4 - Surgery consulted: no acute intervention - ID consulted: Zyvox and Merrem - Wound Care consulted - Air mattress - Turns q2h - Patient can have diet - F/u blood, urine, and wound cultures 2. UTI - Afebrile, leukocytosis - UA shows positive nitrates and large leukocyte esterase - Zyvox and Merrem - F/u urine cultures 3. LOLA - resolved - Monitor intake and output - IVF - Cont to monitor 4. Hyperkalemia - resolved - K 5.3 likely 2/2 dehydration - IVF started - EKG ordered - Cont to monitor 5. H/o DVT - Cont coumadin - INR ordered GI/DVT PPx - Protonix - Coumadin <Tutu Marc - Last Filed: 06/27/17 19:25> Objective - Vital Signs/Intake and Output Vital Signs (last 24 hours): Temp Pulse Resp BP Pulse Ox 97.8 F 62 20 123/73 98 06/27/17 07:30 06/27/17 07:30 06/27/17 07:30 06/27/17 07:30 06/27/17 07:30 Intake and Output: 06/27/17 06/28/17 18:59 06:59 Intake Total 1020 Output Total 2000 Balance -980 - Labs Labs: 06/27/17 07:00 06/27/17 07:00 PT 25.7 SECONDS (9.4-12.5) H 06/27/17 07:00 INR 2.20 (0.93-1.08) H 06/27/17 07:00 APTT 38.0 Seconds (25.1-36.5) H 06/22/17 22:30 Attending/Attestation - Attestation I have personally seen and examined this patient.: Yes I have fully participated in the care of the patient.: Yes I have reviewed all pertinent clinical information, including history, physical exam and plan: Yes Notes (Text): I have seen and examined the patient with the resident. Agree with the above note with the following additions/ exceptions: Briefly this is 51 year old bedridden male with history of spinal abscess, laminectomy, paraplegia, DVT, left heel ulcer who came for evaluation of infected sacral ulcer and also found to have UTI. Patient denies any complaints. Start Mvi, zinc and vitamin C. Continue meropenem and zyvox. Blood, urine and wound cultures are pending. Continue coumadin. Upon discharge the patient will follow-up with PMD . Dr Tutu Marc
[2017-06-25 07:40] LABS: INR 2.74 (0.93-1.08); PROTHROMBIN TIME 32.2 SECONDS (9.4-12.5)
[2017-06-25] MEDS: Pantoprazole 40 mg EC Tab PO SCH (08:38)
--- NOTE | 2017-06-25 09:56 | CP.PCM.PN ---
<Xiomara Canales - Last Filed: 06/25/17 09:56> Subjective - Date & Time of Evaluation Date of Evaluation: 06/25/17 Time of Evaluation: 09:54 - Subjective Subjective: 52 y/o male seen at bedside this morning for left heel ulceration. Pt resting comfortably in bed at time of visit. Denies any pain in the left foot. Dressing has remained clean dry and intact. Denies F/C/N/V/CP/SOB Objective - Vital Signs/Intake and Output Vital Signs (last 24 hours): Temp Pulse Resp BP Pulse Ox 97.9 F 52 L 20 112/64 94 L 06/25/17 07:30 06/25/17 07:30 06/25/17 07:30 06/25/17 07:30 06/25/17 07:30 Intake and Output: 06/25/17 06/25/17 06:59 18:59 Intake Total 1140 Output Total 1960 Balance -820 - Medications Medications: Current Medications Ascorbic Acid (Vitamin C 500 Mg Tab) 500 mg PO DAILY [facility] Last Admin: 06/24/17 09:47 Dose: 500 mg Baclofen (Lioresal) 20 mg PO BID [facility] Last Admin: 06/24/17 19:01 Dose: 20 mg Collagenase (Santyl) 0 gm TOP DAILY [facility] Gabapentin (Neurontin) 300 mg PO BID [facility] PRN Reason: Protocol Last Admin: 06/24/17 19:01 Dose: 300 mg Meropenem (Merrem Iv 1 Gm Premix) 50 mls @ 100 mls/hr IVPB Q8 [facility] PRN Reason: Protocol Stop: 07/02/17 06:01 Last Admin: 06/25/17 05:10 Dose: 100 mls/hr Linezolid (Zyvox) 600 mg PO BID [facility] PRN Reason: Protocol Stop: 07/02/17 22:16 Last Admin: 06/24/17 19:01 Dose: 600 mg Pantoprazole Sodium (Protonix Ec Tab) 40 mg PO ACB [facility] Last Admin: 06/25/17 08:38 Dose: 40 mg Petrolatum (Desitin Maximum Strength Topical 40% Oint) 0 gm TOP Q4H [facility] Last Admin: 06/25/17 03:53 Dose: Not Given Sodium Hypochlorite (Dakins Solution 0.25%) 0 ml TOP DAILY [facility] Warfarin Sodium (Coumadin) 6 mg PO 1800 [facility] PRN Reason: Protocol Last Admin: 06/24/17 19:01 Dose: 6 mg - Labs Labs: 06/25/17 06:20 06/25/17 06:20 PT 32.2 SECONDS (9.4-12.5) H 06/25/17 06:20 INR 2.74 (0.93-1.08) H 06/25/17 06:20 APTT 38.0 Seconds (25.1-36.5) H 06/22/17 22:30 - Constitutional Appears: Well, Non-toxic, No Acute Distress - Extremities Exam Additional comments: Left lower extremity focused exam: Vasc: DP/PT pulses palpable 2/4. Temperature gradient warm to cool. CFT < 3 sec to all digits. No pedal edema Derm: 2 cm x 2.5cm x 0.2cm open ulceration noted to plantar lateral heel. Malodor present. Wound base is a mixture of fibrous and granular tissue. Wound borders exhibit no erythema or maceration. No tunneling or undermining, no fluctuance. Neuro: Protective sensation mildly diminished Ortho: Involuntary muscle spasms noted secondary to paraplegia - Neurological Exam Neurological Exam: Alert, Awake, Oriented x3 - Psychiatric Exam Psychiatric exam: Normal Affect, Normal Mood Assessment and Plan - Assessment and Plan (Free Text) Assessment: 52 y/o male with left plantar lateral heel ulceration Plan: Seen and examined at bedside Discussed plan with Dr. Jalloh Labs and vitals reviewed- afebrile, 5.3 Wound cleansed with sterile saline Dressed heel wound with Santyl and Optifoam dressing Multipodus boots - to be worn at all times in bed Continue IV abx as per ID Will continue to follow pt while in house <Patricia Jalloh - Last Filed: 06/26/17 15:50> Objective - Vital Signs/Intake and Output Vital Signs (last 24 hours): Temp Pulse Resp BP Pulse Ox 97.7 F 50 L 20 122/69 97 06/26/17 08:30 06/26/17 08:30 06/26/17 08:30 06/26/17 08:30 06/26/17 08:30 Intake and Output: 06/26/17 06/26/17 06:59 18:59 Intake Total 1140 Output Total 2200 Balance -1060 - Medications Medications: Current Medications Ascorbic Acid (Vitamin C 500 Mg Tab) 500 mg PO DAILY [facility] Last Admin: 06/26/17 09:26 Dose: 500 mg Baclofen (Lioresal) 20 mg PO BID [facility] Last Admin: 06/26/17 09:27 Dose: 20 mg Collagenase (Santyl) 0 gm TOP DAILY [facility] Last Admin: 06/26/17 09:27 Dose: 1 appful Gabapentin (Neurontin) 300 mg PO BID [facility] PRN Reason: Protocol Last Admin: 06/26/17 09:26 Dose: 300 mg Meropenem (Merrem Iv 1 Gm Premix) 50 mls @ 100 mls/hr IVPB Q8 [facility] PRN Reason: Protocol Stop: 07/02/17 06:01 Last Admin: 06/26/17 13:51 Dose: 100 mls/hr Pantoprazole Sodium (Protonix Ec Tab) 40 mg PO ACB [facility] Last Admin: 06/26/17 08:06 Dose: 40 mg Petrolatum (Desitin Maximum Strength Topical 40% Oint) 0 gm TOP Q4H [facility] Last Admin: 06/26/17 13:52 Dose: 1 applic Sodium Hypochlorite (Dakins Solution 0.25%) 0 ml TOP DAILY [facility] Last Admin: 06/26/17 09:25 Dose: 1 applic Warfarin Sodium (Coumadin) 6 mg PO 1800 [facility] PRN Reason: Protocol Last Admin: 06/25/17 17:08 Dose: 6 mg - Labs Labs: 06/26/17 07:00 06/26/17 07:00 PT 31.3 SECONDS (9.4-12.5) H 06/26/17 07:00 INR 2.67 (0.93-1.08) H 06/26/17 07:00 APTT 38.0 Seconds (25.1-36.5) H 06/22/17 22:30 Attending/Attestation - Attestation I have personally seen and examined this patient.: Yes I have fully participated in the care of the patient.: Yes I have reviewed all pertinent clinical information, including history, physical exam and plan: Yes Notes (Text): 06/26/17 15:49 I have seen and evaluated the patient and formulated the careplan; reviewed and agree with resident note
[2017-06-25] MEDS: Collagenase 250 Units/gm Ointment(30 gm) TOP SCH (10:53)
--- NOTE | 2017-06-25 12:34 | CP.PCM.PN ---
<Laci Madden Ashlie - Last Filed: 06/25/17 23:05> Subjective - Date & Time of Evaluation Date of Evaluation: 06/25/17 Time of Evaluation: 12:12 - Subjective Subjective: Medicine progress note: Dr. Audelia Marc Patient seen and examined at bedside, no acute overnight events. Patient doing well. Objective - Vital Signs/Intake and Output Vital Signs (last 24 hours): Temp Pulse Resp BP Pulse Ox 97.9 F 52 L 20 112/64 94 L 06/25/17 07:30 06/25/17 07:30 06/25/17 07:30 06/25/17 07:30 06/25/17 07:30 Intake and Output: 06/25/17 06/25/17 06:59 18:59 Intake Total 1140 Output Total 1960 800 Balance -820 -800 - Medications Medications: Current Medications Ascorbic Acid (Vitamin C 500 Mg Tab) 500 mg PO DAILY [facility] Last Admin: 06/25/17 10:50 Dose: 500 mg Baclofen (Lioresal) 20 mg PO BID [facility] Last Admin: 06/25/17 10:50 Dose: 20 mg Collagenase (Santyl) 0 gm TOP DAILY [facility] Last Admin: 06/25/17 10:53 Dose: Not Given Gabapentin (Neurontin) 300 mg PO BID [facility] PRN Reason: Protocol Last Admin: 06/25/17 10:50 Dose: 300 mg Meropenem (Merrem Iv 1 Gm Premix) 50 mls @ 100 mls/hr IVPB Q8 [facility] PRN Reason: Protocol Stop: 07/02/17 06:01 Last Admin: 06/25/17 05:10 Dose: 100 mls/hr Linezolid (Zyvox) 600 mg PO BID [facility] PRN Reason: Protocol Stop: 07/02/17 22:16 Last Admin: 06/25/17 10:51 Dose: 600 mg Pantoprazole Sodium (Protonix Ec Tab) 40 mg PO ACB [facility] Last Admin: 06/25/17 08:38 Dose: 40 mg Petrolatum (Desitin Maximum Strength Topical 40% Oint) 0 gm TOP Q4H [facility] Last Admin: 06/25/17 10:51 Dose: Not Given Sodium Hypochlorite (Dakins Solution 0.25%) 0 ml TOP DAILY [facility] Warfarin Sodium (Coumadin) 6 mg PO 1800 [facility] PRN Reason: Protocol Last Admin: 06/24/17 19:01 Dose: 6 mg - Labs Labs: 06/25/17 06:20 06/25/17 06:20 PT 32.2 SECONDS (9.4-12.5) H 06/25/17 06:20 INR 2.74 (0.93-1.08) H 06/25/17 06:20 APTT 38.0 Seconds (25.1-36.5) H 06/22/17 22:30 - Constitutional Appears: Well - Head Exam Head Exam: ATRAUMATIC, NORMAL INSPECTION, NORMOCEPHALIC - Eye Exam Eye Exam: EOMI, Normal appearance, PERRL Pupil Exam: NORMAL ACCOMODATION, PERRL - ENT Exam ENT Exam: Mucous Membranes Moist, Normal Exam - Neck Exam Neck Exam: Full ROM, Normal Inspection. absent: Lymphadenopathy - Respiratory Exam Respiratory Exam: Clear to Ausculation Bilateral, NORMAL BREATHING PATTERN - Cardiovascular Exam Cardiovascular Exam: REGULAR RHYTHM, +S1, +S2. absent: Murmur - GI/Abdominal Exam GI & Abdominal Exam: Soft, Normal Bowel Sounds. absent: Tenderness - Extremities Exam Extremities Exam: Full ROM, Normal Capillary Refill, Normal Inspection. absent : Joint Swelling, Pedal Edema - Back Exam Back Exam: NORMAL INSPECTION - Neurological Exam Neurological Exam: Alert, Awake, CN II-XII Intact, Normal Gait, Oriented x3 - Psychiatric Exam Psychiatric exam: Normal Affect, Normal Mood - Skin Skin Exam: Dry, Intact, Normal Color, Warm Assessment and Plan - Assessment and Plan (Free Text) Assessment: Assessment and Plan 52 yo M with PMH of 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 Right ischial decubitus ulcer, Stage 4 - Surgery consulted: no acute intervention - Wound Care consulted - Air mattress - Turns q2h - Patient can have diet - Blood cultures: negative - Urine and Wound: Proteus, Sensitive to cipro po, will UTI - Afebrile, leukocytosis - UA shows positive nitrates and large leukocyte esterase - Zyvox and Merrem - F/u urine cultures LOLA - resolved - Monitor intake and output - IVF - Cont to monitor Hyperkalemia - resolved - K 5.3 likely 2/2 dehydration - IVF started - EKG ordered - Cont to monitor H/o DVT - Cont coumadin - INR ordered GI/DVT PPx - Protonix - Coumadin Dispo: Patient stable for discharge tomorrow after speaking to social work regarding discharge with sister <Tutu Marc - Last Filed: 06/27/17 19:26> Objective - Vital Signs/Intake and Output Vital Signs (last 24 hours): Temp Pulse Resp BP Pulse Ox 97.8 F 62 20 123/73 98 06/27/17 07:30 06/27/17 07:30 06/27/17 07:30 06/27/17 07:30 06/27/17 07:30 Intake and Output: 06/27/17 06/28/17 18:59 06:59 Intake Total 1020 Output Total 2000 Balance -980 - Labs Labs: 06/27/17 07:00 06/27/17 07:00 PT 25.7 SECONDS (9.4-12.5) H 06/27/17 07:00 INR 2.20 (0.93-1.08) H 06/27/17 07:00 APTT 38.0 Seconds (25.1-36.5) H 06/22/17 22:30 Attending/Attestation - Attestation I have personally seen and examined this patient.: Yes I have fully participated in the care of the patient.: Yes I have reviewed all pertinent clinical information, including history, physical exam and plan: Yes Notes (Text): I have seen and examined the patient with the resident. Agree with the above note with the following additions/ exceptions: Briefly this is 51 year old bedridden male with history of spinal abscess, laminectomy, paraplegia, DVT, left heel ulcer who came for evaluation of infected sacral ulcer and also found to have UTI. Patient denies any complaints. Start Mvi, zinc and vitamin C. Continue meropenem and zyvox. Blood cultures are pending. Urine and wound cultures are growing proteus. Continue coumadin. Upon discharge the patient will follow-up with PMD . Dr Tutu Marc
[2017-06-25] MEDS: Dakin's Topical 0.25%-Half Strength (480 ml) TOP SCH (17:11)
--- NOTE | 2017-06-26 00:58 | PN ---
DATE: 06/25/2017 SUBJECTIVE: Patient is in bed, in no acute distress. PHYSICAL EXAMINATION: VITAL SIGNS: On exam, temperature is 97, blood pressure is 120/70, respiratory rate of 16. HEENT: Unremarkable. NECK: Supple. LUNGS: Decreased breath sounds. HEART: Normal S1 and S2. ABDOMEN: Soft, nontender. LABORATORY EXAMINATION: Reveals a white count of 5.3, hemoglobin of 9, platelets of 186. Chemistries reveal a BUN of 13, creatinine of 0.6. Urinalysis is noted. Microbiology reveals Proteus in the urine and Proteus in the sacral ulcer. Proteus mirabilis in the panculture. 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 We will discontinue the Zyvox. We will follow with you. Colt Coronel MD
[2017-06-26] MEDS: Zinc Oxide Topical 40% Oint (Desitin) TOP SCH ×6 (03:55→23:02)
[2017-06-26] MEDS: Meropenem IV 1 gm in NS 50 ML IVPB SCH ×3 (06:24→22:18)
[2017-06-26 07:26] LABS: HEMOGLOBIN 9.8 g/dL (14.0-18.0); MEAN CELL VOLUME 81.8 fl (80.0-105.0); MEAN CORPUSCULAR HEMOGLOBIN 25.5 pg (25.0-35.0); MEAN CORPUSCULAR HGB CONC 31.1 g/dl (31.0-37.0); MEAN PLATELET VOLUME 11.1 fl (7.0-11.0); RBC 3.85 10^6/uL (3.5-6.1); RED CELL DISTRIBUTION WIDTH 17.3 % (11.5-14.5); WHITE BLOOD COUNT 5.1 10^3/ul (4.5-11.0)
[2017-06-26] MEDS: Pantoprazole 40 mg EC Tab PO SCH (08:06)
[2017-06-26 08:09] LABS: ALB/GLOB RATIO 0.9 (1.1-1.8); ALBUMIN 3.4 g/dL (3.0-4.8); ALT/SGPT 23 U/L (7-56); AST/SGOT 18 U/L (17-59); BLOOD UREA NITROGEN 13 mg/dL (7-21); CALCIUM 9.7 mg/dL (8.4-10.5); GFR AFRICAN-AMERICAN > 60; GFR NON-AFRICAN AMERICAN > 60
[2017-06-26 08:16] LABS: INR 2.67 (0.93-1.08); PROTHROMBIN TIME 31.3 SECONDS (9.4-12.5)
[2017-06-26] MEDS: Dakin's Topical 0.25%-Half Strength (480 ml) TOP SCH (09:25)
[2017-06-26] MEDS: Collagenase 250 Units/gm Ointment(30 gm) TOP SCH (09:27)
--- NOTE | 2017-06-26 11:50 | CP.PCM.PN ---
<Xiomara Canales - Last Filed: 06/26/17 11:50> Subjective - Date & Time of Evaluation Date of Evaluation: 06/26/17 Time of Evaluation: 11:48 - Subjective Subjective: 52 y/o male seen at bedside this morning with attending Dr. Mojica for left heel ulceration. Pt resting comfortably in bed at time of visit. Denies any pain in the left foot. Dressing has remained clean dry and intact. Denies F/C/N/ V/CP/SOB Objective - Vital Signs/Intake and Output Vital Signs (last 24 hours): Temp Pulse Resp BP Pulse Ox 97.7 F 50 L 20 122/69 97 06/26/17 08:30 06/26/17 08:30 06/26/17 08:30 06/26/17 08:30 06/26/17 08:30 Intake and Output: 06/26/17 06/26/17 06:59 18:59 Intake Total 1140 Output Total 2200 Balance -1060 - Medications Medications: Current Medications Ascorbic Acid (Vitamin C 500 Mg Tab) 500 mg PO DAILY [facility] Last Admin: 06/26/17 09:26 Dose: 500 mg Baclofen (Lioresal) 20 mg PO BID [facility] Last Admin: 06/26/17 09:27 Dose: 20 mg Collagenase (Santyl) 0 gm TOP DAILY [facility] Last Admin: 06/26/17 09:27 Dose: 1 appful Gabapentin (Neurontin) 300 mg PO BID [facility] PRN Reason: Protocol Last Admin: 06/26/17 09:26 Dose: 300 mg Meropenem (Merrem Iv 1 Gm Premix) 50 mls @ 100 mls/hr IVPB Q8 [facility] PRN Reason: Protocol Stop: 07/02/17 06:01 Last Admin: 06/26/17 06:24 Dose: 100 mls/hr Pantoprazole Sodium (Protonix Ec Tab) 40 mg PO ACB [facility] Last Admin: 06/26/17 08:06 Dose: 40 mg Petrolatum (Desitin Maximum Strength Topical 40% Oint) 0 gm TOP Q4H [facility] Last Admin: 06/26/17 09:24 Dose: 1 applic Sodium Hypochlorite (Dakins Solution 0.25%) 0 ml TOP DAILY [facility] Last Admin: 06/26/17 09:25 Dose: 1 applic Warfarin Sodium (Coumadin) 6 mg PO 1800 [facility] PRN Reason: Protocol Last Admin: 06/25/17 17:08 Dose: 6 mg - Labs Labs: 06/26/17 07:00 06/26/17 07:00 PT 31.3 SECONDS (9.4-12.5) H 06/26/17 07:00 INR 2.67 (0.93-1.08) H 06/26/17 07:00 APTT 38.0 Seconds (25.1-36.5) H 06/22/17 22:30 - Constitutional Appears: Well, Non-toxic, No Acute Distress - Extremities Exam Additional comments: Left lower extremity focused exam: Vasc: DP/PT pulses palpable 2/4. Temperature gradient warm to cool. CFT < 3 sec to all digits. No pedal edema Derm: 2 cm x 2.5cm x 0.2cm open ulceration noted to plantar lateral heel. Malodor present. Wound base is a mixture of fibrous and granular tissue. Wound borders exhibit no erythema or maceration. No tunneling or undermining, no fluctuance. Neuro: Protective sensation mildly diminished Ortho: Involuntary muscle spasms noted secondary to paraplegia. No tenderness noted to palpation of left heel ulceration - Neurological Exam Neurological Exam: Alert, Awake, Oriented x3 - Psychiatric Exam Psychiatric exam: Normal Affect, Normal Mood Assessment and Plan - Assessment and Plan (Free Text) Assessment: 52 y/o male with left plantar lateral heel ulceration secondary to bed bound status Plan: Seen and examined at bedside Discussed plan with Dr. Mojica Labs and vitals reviewed- afebrile, 5.1 Wound cleansed with sterile saline Dressed heel wound with Santyl and Optifoam dressing Multipodus boots - to be worn at all times in bed Continue IV abx as per ID Will continue to follow pt while in house <Adair Mojica - Last Filed: 06/26/17 16:47> Objective - Vital Signs/Intake and Output Vital Signs (last 24 hours): Temp Pulse Resp BP Pulse Ox 97.7 F 50 L 20 122/69 97 06/26/17 08:30 06/26/17 08:30 06/26/17 08:30 06/26/17 08:30 06/26/17 08:30 Intake and Output: 06/26/17 06/26/17 06:59 18:59 Intake Total 1140 Output Total 2200 Balance -1060 - Medications Medications: Current Medications Ascorbic Acid (Vitamin C 500 Mg Tab) 500 mg PO DAILY [facility] Last Admin: 06/26/17 09:26 Dose: 500 mg Baclofen (Lioresal) 20 mg PO BID [facility] Last Admin: 06/26/17 09:27 Dose: 20 mg Collagenase (Santyl) 0 gm TOP DAILY [facility] Last Admin: 06/26/17 09:27 Dose: 1 appful Gabapentin (Neurontin) 300 mg PO BID [facility] PRN Reason: Protocol Last Admin: 06/26/17 09:26 Dose: 300 mg Meropenem (Merrem Iv 1 Gm Premix) 50 mls @ 100 mls/hr IVPB Q8 [facility] PRN Reason: Protocol Stop: 07/02/17 06:01 Last Admin: 06/26/17 13:51 Dose: 100 mls/hr Pantoprazole Sodium (Protonix Ec Tab) 40 mg PO ACB [facility] Last Admin: 06/26/17 08:06 Dose: 40 mg Petrolatum (Desitin Maximum Strength Topical 40% Oint) 0 gm TOP Q4H [facility] Last Admin: 06/26/17 13:52 Dose: 1 applic Sodium Hypochlorite (Dakins Solution 0.25%) 0 ml TOP DAILY [facility] Last Admin: 06/26/17 09:25 Dose: 1 applic Warfarin Sodium (Coumadin) 6 mg PO 1800 [facility] PRN Reason: Protocol Last Admin: 06/25/17 17:08 Dose: 6 mg - Labs Labs: 06/26/17 07:00 06/26/17 07:00 PT 31.3 SECONDS (9.4-12.5) H 06/26/17 07:00 INR 2.67 (0.93-1.08) H 06/26/17 07:00 APTT 38.0 Seconds (25.1-36.5) H 06/22/17 22:30 Attending/Attestation - Attestation I have personally seen and examined this patient.: Yes I have fully participated in the care of the patient.: Yes I have reviewed all pertinent clinical information, including history, physical exam and plan: Yes
--- NOTE | 2017-06-26 20:43 | CP.PCM.PN ---
<MaryanneLaci - Last Filed: 06/26/17 20:39> Subjective - Date & Time of Evaluation Date of Evaluation: 06/26/17 Time of Evaluation: 20:43 - Subjective Subjective: Medicine progress note: Dr. Audelia Marc Patient seen and examined at bedside. Patient denies any acute events overnight , and no acute events overnight per nursing. Patient denies any complaints, and states that he is ready to go home with his sister. Objective - Vital Signs/Intake and Output Vital Signs (last 24 hours): Temp Pulse Resp BP Pulse Ox 97.6 F 53 L 18 128/77 98 06/26/17 14:00 06/26/17 14:00 06/26/17 14:00 06/26/17 14:00 06/26/17 14:00 - Medications Medications: Current Medications Ascorbic Acid (Vitamin C 500 Mg Tab) 500 mg PO DAILY [facility] Last Admin: 06/26/17 09:26 Dose: 500 mg Baclofen (Lioresal) 20 mg PO BID [facility] Last Admin: 06/26/17 17:53 Dose: 20 mg Collagenase (Santyl) 0 gm TOP DAILY [facility] Last Admin: 06/26/17 09:27 Dose: 1 appful Gabapentin (Neurontin) 300 mg PO BID [facility] PRN Reason: Protocol Last Admin: 06/26/17 17:52 Dose: 300 mg Meropenem (Merrem Iv 1 Gm Premix) 50 mls @ 100 mls/hr IVPB Q8 [facility] PRN Reason: Protocol Stop: 07/02/17 06:01 Last Admin: 06/26/17 13:51 Dose: 100 mls/hr Pantoprazole Sodium (Protonix Ec Tab) 40 mg PO ACB [facility] Last Admin: 06/26/17 08:06 Dose: 40 mg Petrolatum (Desitin Maximum Strength Topical 40% Oint) 0 gm TOP Q4H [facility] Last Admin: 06/26/17 17:53 Dose: 1 applic Sodium Hypochlorite (Dakins Solution 0.25%) 0 ml TOP DAILY [facility] Last Admin: 06/26/17 09:25 Dose: 1 applic Warfarin Sodium (Coumadin) 6 mg PO 1800 [facility] PRN Reason: Protocol Last Admin: 06/26/17 17:53 Dose: 6 mg - Labs Labs: 06/26/17 07:00 06/26/17 07:00 PT 31.3 SECONDS (9.4-12.5) H 06/26/17 07:00 INR 2.67 (0.93-1.08) H 06/26/17 07:00 APTT 38.0 Seconds (25.1-36.5) H 06/22/17 22:30 - Constitutional Appears: Well - Head Exam Head Exam: ATRAUMATIC, NORMAL INSPECTION, NORMOCEPHALIC - Eye Exam Eye Exam: EOMI, Normal appearance, PERRL Pupil Exam: NORMAL ACCOMODATION, PERRL - ENT Exam ENT Exam: Mucous Membranes Moist, Normal Exam - Neck Exam Neck Exam: Full ROM, Normal Inspection. absent: Lymphadenopathy - Respiratory Exam Respiratory Exam: Clear to Ausculation Bilateral, NORMAL BREATHING PATTERN - Cardiovascular Exam Cardiovascular Exam: REGULAR RHYTHM, +S1, +S2. absent: Murmur - GI/Abdominal Exam GI & Abdominal Exam: Soft, Normal Bowel Sounds. absent: Tenderness - Extremities Exam Extremities Exam: Full ROM, Normal Capillary Refill, Normal Inspection. absent : Joint Swelling, Pedal Edema - Back Exam Back Exam: NORMAL INSPECTION - Neurological Exam Neurological Exam: Alert, Awake, CN II-XII Intact, Normal Gait, Oriented x3 - Psychiatric Exam Psychiatric exam: Normal Affect, Normal Mood - Skin Skin Exam: Dry, Intact, Normal Color, Warm Assessment and Plan - Assessment and Plan (Free Text) Assessment: Assessment and Plan 52 yo M with PMH of 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 Right ischial decubitus ulcer, Stage 4 - Surgery consulted: no acute intervention - Wound Care consulted - Air mattress - Turns q2h - Patient can have diet - Blood cultures: negative - Urine and Wound: Proteus, Sensitive to cipro po, will d/c on po cipro Left Leg Ulcer - Wound culture came back with Staphylococcus species, sensitivities are pending - Once sensitivities come back, will discharge on po medications, if sensitivities UTI - Afebrile, leukocytosis - UA shows positive nitrates and large leukocyte esterase - Zyvox and Merrem - F/u urine cultures LOLA - resolved - Monitor intake and output - IVF - Cont to monitor Hyperkalemia - resolved - K 5.3 likely 2/2 dehydration - IVF started - EKG ordered - Cont to monitor H/o DVT - Cont coumadin - INR ordered: 2.67 today GI/DVT PPx - Protonix - Coumadin Dispo:Patient stable for discharge home with his sister on po antibiotics for wound infections <Tutu Marc - Last Filed: 06/28/17 14:24> Objective - Vital Signs/Intake and Output Vital Signs (last 24 hours): Temp Pulse Resp BP Pulse Ox 97.8 F 62 20 123/73 98 06/27/17 07:30 06/27/17 07:30 06/27/17 07:30 06/27/17 07:30 06/27/17 07:30 Intake and Output: 06/27/17 06/28/17 18:59 06:59 Intake Total 1020 Output Total 2000 Balance -980 - Labs Labs: 06/27/17 07:00 06/27/17 07:00 PT 25.7 SECONDS (9.4-12.5) H 06/27/17 07:00 INR 2.20 (0.93-1.08) H 06/27/17 07:00 APTT 38.0 Seconds (25.1-36.5) H 06/22/17 22:30 Attending/Attestation - Attestation I have personally seen and examined this patient.: Yes I have fully participated in the care of the patient.: Yes I have reviewed all pertinent clinical information, including history, physical exam and plan: Yes Notes (Text): I have seen and examined the patient with the resident. Agree with the above note with the following additions/ exceptions: Briefly this is 51 year old bedridden male with history of spinal abscess, laminectomy, paraplegia, DVT, left heel ulcer who came for evaluation of infected sacral ulcer and also found to have UTI. Patient denies any complaints. Continue Mvi, zinc and vitamin C. Continue meropenem and zyvox. Blood cultures are negative. Urine and wound cultures are growing proteus. Wound culture is growing staph. Awaiting sensitivities. Continue coumadin. Upon discharge the patient will follow-up with PMD . Dr Tutu Marc
--- NOTE | 2017-06-26 23:31 | CP.PCM.PN ---
Subjective - Date & Time of Evaluation Date of Evaluation: 06/26/17 Time of Evaluation: 10:55 - Subjective Subjective: Improved pain in the sacral area, no fevers. Objective - Vital Signs/Intake and Output Vital Signs (last 24 hours): Temp Pulse Resp BP Pulse Ox 97.7 F 50 L 20 122/69 97 06/26/17 08:30 06/26/17 08:30 06/26/17 08:30 06/26/17 08:30 06/26/17 08:30 Intake and Output: 06/26/17 06/26/17 06:59 18:59 Intake Total 1140 Output Total 2200 Balance -1060 - Medications Medications: Current Medications Ascorbic Acid (Vitamin C 500 Mg Tab) 500 mg PO DAILY [facility] Last Admin: 06/26/17 09:26 Dose: 500 mg Baclofen (Lioresal) 20 mg PO BID [facility] Last Admin: 06/26/17 09:27 Dose: 20 mg Collagenase (Santyl) 0 gm TOP DAILY [facility] Last Admin: 06/26/17 09:27 Dose: 1 appful Gabapentin (Neurontin) 300 mg PO BID [facility] PRN Reason: Protocol Last Admin: 06/26/17 09:26 Dose: 300 mg Meropenem (Merrem Iv 1 Gm Premix) 50 mls @ 100 mls/hr IVPB Q8 [facility] PRN Reason: Protocol Stop: 07/02/17 06:01 Last Admin: 06/26/17 06:24 Dose: 100 mls/hr Pantoprazole Sodium (Protonix Ec Tab) 40 mg PO ACB [facility] Last Admin: 06/26/17 08:06 Dose: 40 mg Petrolatum (Desitin Maximum Strength Topical 40% Oint) 0 gm TOP Q4H [facility] Last Admin: 06/26/17 09:24 Dose: 1 applic Sodium Hypochlorite (Dakins Solution 0.25%) 0 ml TOP DAILY [facility] Last Admin: 06/26/17 09:25 Dose: 1 applic Warfarin Sodium (Coumadin) 6 mg PO 1800 [facility] PRN Reason: Protocol Last Admin: 06/25/17 17:08 Dose: 6 mg - Labs Labs: 06/26/17 07:00 06/26/17 07:00 PT 31.3 SECONDS (9.4-12.5) H 06/26/17 07:00 INR 2.67 (0.93-1.08) H 06/26/17 07:00 APTT 38.0 Seconds (25.1-36.5) H 06/22/17 22:30 - Constitutional Appears: Chronically Ill - Head Exam Head Exam: NORMAL INSPECTION - ENT Exam ENT Exam: Mucous Membranes Moist - Neck Exam Neck Exam: absent: Meningismus - Respiratory Exam Respiratory Exam: Decreased Breath Sounds - Cardiovascular Exam Cardiovascular Exam: +S1, +S2 - GI/Abdominal Exam GI & Abdominal Exam: Soft. absent: Tenderness Assessment and Plan - Assessment and Plan (Free Text) Plan: Assessment sacral decubitus infection S/P debridement, growing Proteus S/P colostomy history of epidural abscess secondary to Strep pneumoniae with associated cord compression and lower extremity paralysis and neurogenic bladder S/P neurosurgery for abscess drainage and laminectomy history of partial small bowel obstruction significant smoking history alcohol abuse Plan continue Merrem; Staph species also isolated from left foot wound - follow up identification and sensitivities - may be able to switch to PO antibiotics if sensitive
[2017-06-27] MEDS: Zinc Oxide Topical 40% Oint (Desitin) TOP SCH ×3 (03:00→10:23)
[2017-06-27] MEDS: Meropenem IV 1 gm in NS 50 ML IVPB SCH ×2 (05:46→13:31)
[2017-06-27] MEDS: Pantoprazole 40 mg EC Tab PO SCH (06:32)
[2017-06-27 08:01] LABS: HEMOGLOBIN 10.7 g/dL (14.0-18.0); MEAN CELL VOLUME 81.8 fl (80.0-105.0); MEAN CORPUSCULAR HEMOGLOBIN 25.9 pg (25.0-35.0); MEAN CORPUSCULAR HGB CONC 31.7 g/dl (31.0-37.0); RBC 4.13 10^6/uL (3.5-6.1); RED CELL DISTRIBUTION WIDTH 17.1 % (11.5-14.5); WHITE BLOOD COUNT 5.3 10^3/ul (4.5-11.0)
[2017-06-27 08:02] VITALS: BP 123/73; PULSE 62; RESP 20; TEMP 97.8; O2SAT 98
[2017-06-27 08:11] LABS: ALB/GLOB RATIO 0.9 (1.1-1.8); ALBUMIN 3.5 g/dL (3.0-4.8); ALT/SGPT 31 U/L (7-56); AST/SGOT 22 U/L (17-59); BLOOD UREA NITROGEN 13 mg/dL (7-21); CALCIUM 9.9 mg/dL (8.4-10.5); GFR AFRICAN-AMERICAN > 60; GFR NON-AFRICAN AMERICAN > 60
[2017-06-27 08:32] LABS: INR 2.2 (0.93-1.08); PROTHROMBIN TIME 25.7 SECONDS (9.4-12.5)
--- NOTE | 2017-06-27 10:13 | CP.PCM.PN ---
<Miguel Anderson - Last Filed: 06/27/17 11:25> Subjective - Date & Time of Evaluation Date of Evaluation: 06/27/17 Time of Evaluation: 09:00 - Subjective Subjective: Podiatry Progress Note- Dr. Moijca 52 y/o male seen at bedside this morning with attending Dr. Mojica for left heel ulceration. Pt resting comfortably in bed at time of visit. Appears in NAD , no new complaints. Denies acute overnight events. Denies any pain in the left foot. Dressing has remained clean dry and intact. Denies F/C/N/V/CP/SOB Objective - Vital Signs/Intake and Output Vital Signs (last 24 hours): Temp Pulse Resp BP Pulse Ox 97.8 F 62 20 123/73 98 06/27/17 07:30 06/27/17 07:30 06/27/17 07:30 06/27/17 07:30 06/27/17 07:30 Intake and Output: 06/27/17 06/27/17 06:59 18:59 Intake Total 320 Output Total 1000 Balance -680 - Medications Medications: Current Medications Acetaminophen (Tylenol 325mg Tab) 650 mg PO Q6H PRN PRN Reason: Pain, Mild (1-3) Last Admin: 06/26/17 22:50 Dose: 650 mg Ascorbic Acid (Vitamin C 500 Mg Tab) 500 mg PO DAILY [facility] Last Admin: 06/26/17 09:26 Dose: 500 mg Baclofen (Lioresal) 20 mg PO BID [facility] Last Admin: 06/26/17 17:53 Dose: 20 mg Collagenase (Santyl) 0 gm TOP DAILY [facility] Last Admin: 06/26/17 09:27 Dose: 1 appful Gabapentin (Neurontin) 300 mg PO BID [facility] PRN Reason: Protocol Last Admin: 06/26/17 17:52 Dose: 300 mg Meropenem (Merrem Iv 1 Gm Premix) 50 mls @ 100 mls/hr IVPB Q8 [facility] PRN Reason: Protocol Stop: 07/02/17 06:01 Last Admin: 06/27/17 05:46 Dose: 100 mls/hr Pantoprazole Sodium (Protonix Ec Tab) 40 mg PO ACB [facility] Last Admin: 06/27/17 06:32 Dose: 40 mg Petrolatum (Desitin Maximum Strength Topical 40% Oint) 0 gm TOP Q4H [facility] Last Admin: 06/27/17 06:34 Dose: Not Given Sodium Hypochlorite (Dakins Solution 0.25%) 0 ml TOP DAILY [facility] Last Admin: 06/26/17 09:25 Dose: 1 applic Warfarin Sodium (Coumadin) 6 mg PO 1800 [facility] PRN Reason: Protocol Last Admin: 06/26/17 17:53 Dose: 6 mg - Labs Labs: 06/27/17 07:00 06/27/17 07:00 PT 25.7 SECONDS (9.4-12.5) H 06/27/17 07:00 INR 2.20 (0.93-1.08) H 06/27/17 07:00 APTT 38.0 Seconds (25.1-36.5) H 06/22/17 22:30 - Constitutional Appears: Well, Non-toxic, No Acute Distress - Extremities Exam Extremities Exam: absent: Calf Tenderness Additional comments: Left lower extremity focused exam: Vasc: DP/PT pulses palpable 2/4. Temperature gradient warm to cool. CFT < 3 sec to all digits. No pedal edema Derm: 2 cm x 2.5cm x 0.2cm open ulceration noted to plantar lateral heel. Malodor present. Wound base is a mixture of fibrous and granular tissue. Wound borders exhibit no erythema or maceration. No tunneling or undermining, no fluctuance. Neuro: Protective sensation mildly diminished Ortho: Involuntary muscle spasms noted secondary to paraplegia. No tenderness noted to palpation of left heel ulceration - Neurological Exam Neurological Exam: Alert, Awake, Oriented x3 - Psychiatric Exam Psychiatric exam: Normal Affect, Normal Mood Assessment and Plan - Assessment and Plan (Free Text) Assessment: 52 y/o male with left plantar lateral heel ulceration secondary to bed bound status Plan: Pt een and examined at bedside Discussed plan with Dr. Mojica Labs and vitals reviewed- afebrile, 5.3 Wound cleansed with sterile saline Dressed heel wound with Santyl and Optifoam dressing with kerlix Multipodus boots - to be worn at all times in bed Continue IV abx as per ID Will continue to follow pt while in house Will follow up with Dr. Mojica/[facility] upon discharge within 1 week Dressing to be changed with zaira Franco. Continue previous wound care schedule as instructed when discharge <Adair Mojica - Last Filed: 06/30/17 11:56> Objective - Vital Signs/Intake and Output Vital Signs (last 24 hours): Temp Pulse Resp BP Pulse Ox 97.8 F 62 20 123/73 98 06/27/17 07:30 06/27/17 07:30 06/27/17 07:30 06/27/17 07:30 06/27/17 07:30 - Labs Labs: 06/27/17 07:00 06/27/17 07:00 PT 25.7 SECONDS (9.4-12.5) H 06/27/17 07:00 INR 2.20 (0.93-1.08) H 06/27/17 07:00 APTT 38.0 Seconds (25.1-36.5) H 06/22/17 22:30 Attending/Attestation - Attestation I have personally seen and examined this patient.: Yes I have fully participated in the care of the patient.: Yes I have reviewed all pertinent clinical information, including history, physical exam and plan: Yes
[2017-06-27] MEDS: Collagenase 250 Units/gm Ointment(30 gm) TOP SCH (10:15)
[2017-06-27] MEDS: Dakin's Topical 0.25%-Half Strength (480 ml) TOP SCH (10:22)
--- NOTE | 2017-06-27 10:33 | CP.PCM.DIS ---
Provider - Provider Date of Admission: 06/22/17 22:28 Attending physician: Tutu Marc MD Primary care physician: Ishan Dominguez MD Hospital Course - Lab Results Lab Results: Micro Results 06/24/17 18:35 Foot - Left Gram Stain - Final 06/24/17 18:35 Foot - Left Wound Culture - Preliminary Staphylococcus Species 06/22/17 22:30 Blood Blood Culture - Preliminary NO GROWTH AFTER 4 DAYS 06/22/17 23:14 Urine,Mackenzie Urine Culture - Final Proteus Mirabilis 06/22/17 23:14 Sacral Gram Stain - Final 06/22/17 23:14 Sacral Wound Culture - Final Proteus Mirabilis Most Recent Lab Values WBC 5.3 10^3/ul (4.5-11.0) 06/27/17 07:00 RBC 4.13 10^6/uL (3.5-6.1) 06/27/17 07:00 Hgb 10.7 g/dL (14.0-18.0) L 06/27/17 07:00 Hct 33.8 % (42.0-52.0) L 06/27/17 07:00 MCV 81.8 fl (80.0-105.0) 06/27/17 07:00 MCH 25.9 pg (25.0-35.0) 06/27/17 07:00 MCHC 31.7 g/dl (31.0-37.0) 06/27/17 07:00 RDW 17.1 % (11.5-14.5) H 06/27/17 07:00 Plt Count 246 10^3/uL (120.0-450.0) 06/27/17 07:00 MPV 11.0 fl (7.0-11.0) 06/27/17 07:00 Gran % 83.9 % (50.0-68.0) H 06/22/17 22:30 Lymph % (Auto) 7.2 % (22.0-35.0) L 06/22/17 22:30 [place] % (Auto) 8.6 % (1.0-6.0) H 06/22/17 22:30 Eos % (Auto) 0.1 % (1.5-5.0) L 06/22/17 22:30 Baso % (Auto) 0.2 % (0.0-3.0) 06/22/17 22:30 Gran # 11.02 (1.4-6.5) H 06/22/17 22:30 Lymph # (Auto) 1.0 (1.2-3.4) L 06/22/17 22:30 [place] # (Auto) 1.1 (0.1-0.6) H 06/22/17 22:30 Eos # (Auto) 0.0 (0.0-0.7) 06/22/17 22:30 Baso # (Auto) 0.02 K/mm3 (0.0-2.0) 06/22/17 22:30 PT 25.7 SECONDS (9.4-12.5) H 06/27/17 07:00 INR 2.20 (0.93-1.08) H 06/27/17 07:00 APTT 38.0 Seconds (25.1-36.5) H 06/22/17 22:30 Sodium 142 mmol/L (132-148) 06/27/17 07:00 Potassium 3.8 mmol/L (3.6-5.0) 06/27/17 07:00 Chloride 104 mmol/L (98-107) 06/27/17 07:00 Carbon Dioxide 30 mmol/L (21-33) 06/27/17 07:00 Anion Gap 12 (10-20) 06/27/17 07:00 BUN 13 mg/dL (7-21) 06/27/17 07:00 Creatinine 0.6 mg/dl (0.8-1.5) L 06/27/17 07:00 Est GFR ( Amer) > 60 06/27/17 07:00 Est GFR (Non-Af Amer) > 60 06/27/17 07:00 Random Glucose 87 mg/dL (70-110) 06/27/17 07:00 Calcium 9.9 mg/dL (8.4-10.5) 06/27/17 07:00 Phosphorus 3.8 mg/dL (2.5-4.5) 06/27/17 07:00 Magnesium 1.9 mg/dL (1.7-2.2) 06/27/17 07:00 Total Bilirubin 0.2 mg/dL (0.2-1.3) 06/27/17 07:00 AST 22 U/L (17-59) 06/27/17 07:00 ALT 31 U/L (7-56) 06/27/17 07:00 Alkaline Phosphatase 69 U/L (38-126) 06/27/17 07:00 Total Protein 7.4 g/dL (5.8-8.3) 06/27/17 07:00 Albumin 3.5 g/dL (3.0-4.8) 06/27/17 07:00 Globulin 3.8 gm/dL 06/27/17 07:00 Albumin/Globulin Ratio 0.9 (1.1-1.8) L 06/27/17 07:00 Urine Color Yellow (YELLOW) 06/22/17 23:14 Urine Appearance Cloudy (CLEAR) 06/22/17 23:14 Urine pH >=9.0 (4.7-8.0) 06/22/17 23:14 Ur Specific [place] <= 1.005 (1.005-1.035) 06/22/17 23:14 Urine Protein >=300 mg/dL (<30 mg/dL) H 06/22/17 23:14 Urine Glucose (UA) Negative mg/dL (NEGATIVE) 06/22/17 23:14 Urine Ketones Negative mg/dL (NEGATIVE) 06/22/17 23:14 Urine Blood Moderate (NEGATIVE) H 06/22/17 23:14 Urine Nitrate Positive (NEGATIVE) H 06/22/17 23:14 Urine Bilirubin Negative (NEGATIVE) 06/22/17 23:14 Urine Urobilinogen 0.2 E.U./dL (<1 E.U./dL) 06/22/17 23:14 Ur Leukocyte Esterase Large Ang/uL (NEGATIVE) H 06/22/17 23:14 Urine RBC 10 - 15 /hpf (0-2) 06/22/17 23:14 Urine WBC 10 - 15 /hpf (0-6) 06/22/17 23:14 Ur Epithelial Cells 0 - 2 /hpf (0-5) 06/22/17 23:14 Triple Phos Crystals Many /hpf 06/22/17 23:14 Urine Bacteria Many (NEG) 06/22/17 23:14 Discharge Exam - Head Exam Head Exam: NORMAL INSPECTION Discharge Plan - Discharge Medications Prescriptions: Ascorbic Acid [Vitamin C 500 mg Tab] 500 mg PO DAILY #30 tab Baclofen [Lioresal] 20 mg PO BID #60 tab Ciprofloxacin HCl [Cipro] 500 mg PO BID #10 tab Collagenase [Santyl] 1 unit TOP DAILY #1 tube Sodium Hypochlorite 0.25% [Dakins Solution 0.25%] 1 unit TOP DAILY #1 bottle - Follow Up Plan Condition: STABLE Disposition: HOME/ ROUTINE Instructions: Heart Healthy Diet, Preventing Falls in the Older Adult, Flu Vaccine, Acute Kidney Injury (DC), Cellulitis (DC), Abscess (GEN) Additional Instructions: Wound vac change every 3-4 days on the decubitus ulcer. Follow up at Dr. Askew's office in 1 month for wound evaluation Please take your antibiotics (Ciprofloxacin) as prescribed (1 tablet twice a day for 5 days) Referrals: Ishan Dominguez MD [Primary Care Provider] - Trever Askew MD [Staff Provider] - 1 Week (1-2 weeks )
--- NOTE | 2017-06-28 01:02 | PN ---
DATE: 06/27/2017 SUBJECTIVE: Patient was seen earlier this morning in room 568, bed 1. No fevers, no chills. No nausea, no vomiting. PHYSICAL EXAMINATION: VITAL SIGNS: Temperature is 97, blood pressure is 120/70, respiratory rate 16. HEENT: Unremarkable. NECK: Supple. LUNGS: Have decreased breath sounds. HEART: Normal S1 and S2. ABDOMEN: Soft. LABORATORY DATA: Reveals a white count of 5.3, hemoglobin of 10, and platelets of 246. Chemistries are noted, BUN of 13, creatinine of 0.6. Urinalysis is noted. Microbiology reveals Staphylococcus coag-negative from the foot. I examined the foot that reveals a nice, clean, open, shallow ulcer, approximately the size of a nickel with no evidence of any infection. ASSESSMENT AND PLAN: This is a 52-year-old male with sacral decubiti status post debridement, growing proteus with a history of epidural abscess secondary to streptococcus pneumonia with associated cord compression, lower extremity paralysis, neurogenic bladder, status post neurosurgery for abscess drainage, and laminectomy. May be discharged on p.o. Cipro. I discussed with this morning when the patient was seen earlier this morning. Colt Coronel MD
== END 2017-06-27 16:53 | disposition home health service (06) | DRG 562 ==
LOC: ED 20:41 → ERH 22:28 → 5RNO 06-23 00:51
PROVIDERS: ADMIT Internal Medicine; ATTEND Hospitalist
DX: L89.154 Pressure ulcer of sacral region, stage 4 (principal); N17.9 Acute kidney failure, unspecified; R65.20 Severe sepsis without septic shock; N39.0 Urinary tract infection, site not specified; E87.5 Hyperkalemia; E86.0 Dehydration; B96.4 Proteus (mirabilis) (morganii) as the cause of diseases classified elsewhere; N31.9 Neuromuscular dysfunction of bladder, unspecified; F14.10 Cocaine abuse, uncomplicated; L89.312 Pressure ulcer of right buttock, stage 2; L89.629 Pressure ulcer of left heel, unspecified stage; G82.20 Paraplegia, unspecified; I10 Essential (primary) hypertension; D64.9 Anemia, unspecified; H52.10 Myopia, unspecified eye; Z86.718 Personal history of other venous thrombosis and embolism; Z87.891 Personal history of nicotine dependence; Z93.3 Colostomy status; Z74.01 Bed confinement status; Z79.01 Long term (current) use of anticoagulants

== ENCOUNTER 2017-08-03 00:02 | Emergency (ER) | payer MEDICAID ==
[2017-08-03 00:12] VITALS: BMI 28.7
[2017-08-03 00:14] VITALS: TEMP 98.3
--- NOTE | 2017-08-03 00:36 | ED PDOC ---
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 Patient states there was some leakage around the haque catheter site as urine was not passing. Patient denies any fevers, chills, abdominal pain, or any other complaint. Symptom Onset: Gradual Symptom Course: Unchanged Activities at Onset: Light Context: Home Past Medical History - Provider Review Nursing Documentation Reviewed: Yes - Infectious Disease Hx of Infectious Diseases: None - Cardiac Hx Cardiac Disorders: No - Pulmonary Hx Respiratory Disorders: No - Neurological Hx Neurological Disorder: Yes Other/Comment: paraplegic - HEENT Hx HEENT Disorder: No - Renal Hx Renal Disorder: No - Endocrine/Metabolic Hx Endocrine Disorders: No - Hematological/Oncological Hx Blood Disorders: Yes Hx Anemia: Yes (H/O BLOOD TRANSFUSION) - Integumentary Hx Dermatological Disorder: Yes Other/Comment: 05-26-17 PRESSURE SACRAL ULCER-HEALING WOUND BUT HAS 2 OPEN WOUND STAGE 2 1 CM IN DM. RIGHT BUTTOCK PRESSURE ULCER WITH OPEN WOUND SMOOTH EDGES, WOUND VAC AT HOME,NON HEALING WOUND.DEPTH OF 5 CM WITH INDURATION OF 3.5 AT 12 OCLOCK.WOUND BED HAS MOIST BLACK FILM NECROTIC TISSUE. LEFT HEEL HAS A PRESSURE ULCER BLACKENED NECROTIC TISSUE COVERING WHOLE WOUND.MEASURES 3 X 4 CM. - Musculoskeletal/Rheumatological Hx Musculoskeletal Disorders: No Hx Falls: No - Gastrointestinal Hx Gastrointestinal Disorders: Yes (COLOSTOMY LEFT.) Hx Colostomy: Yes - Genitourinary/Gynecological Hx Genitourinary Disorders: Yes Hx Incontinence: Yes Other/Comment: has haque and diaper - Psychiatric Hx Psychophysiologic Disorder: No Hx Substance Use: No - Surgical History Other/Comment: colostomy bag - Anesthesia Hx Anesthesia Reactions: No Hx Malignant Hyperthermia: No Family/Social History - Physician Review Nursing Documentation Reviewed: Yes Family/Social History: Unknown Family HX Smoking Status: Former Smoker Hx Alcohol Use: Yes Hx Substance Use: No Allergies/Home Meds Allergies/Adverse Reactions: Allergies ceftriaxone [From Rocephin] Adverse Reaction (Mild, Verified 05/26/17 16:46) BURNING AT IV SITE BURNING/ITCHING AT IV SITE; NOT GENERALIZED RASH Cephalosporins Adverse Reaction (Mild, Verified 05/26/17 16:46) BURNING AT IV SITE LOCALIZED BURNING/ITCHING AT IV SITE; NOT GENERALIZED RASH Home Medications: Home Meds Medication Instructions Recorded Confirmed Warfarin [Coumadin] 6 mg PO 1800 05/26/17 06/22/17 Review of Systems - Physician Review All systems were reviewed & negative as marked: Yes - Review of Systems Constitutional: Normal. absent: Fevers Eyes: Normal ENT: Normal Respiratory: Normal. absent: SOB, Cough Cardiovascular: Normal. absent: Syncope Gastrointestinal: Normal. absent: Abdominal Pain, Diarrhea, Nausea, Vomiting Genitourinary Male: Urinary Output Changes (+obstructed Haque catheter) Musculoskeletal: Normal. absent: Back Pain, Neck Pain Skin: Normal. absent: Rash Neurological: Normal. absent: Headache, Dizziness Endocrine: Normal Hemo/Lymphatic: Normal Psychiatric: Normal Physical Exam Vital Signs Reviewed: Yes Vital Signs Temp Pulse Resp BP Pulse Ox 08/03/17 00:14 98.3 F 66 18 150/78 98 Temperature: Afebrile Blood Pressure: Normal Pulse: Regular Respiratory Rate: Normal Appearance: Positive for: Well-Appearing, Non-Toxic, Comfortable Pain Distress: None Mental Status: Positive for: Alert and Oriented X 3 - Systems Exam Head: Present: Atraumatic, Normocephalic Pupils: Present: PERRL Extroacular Muscles: Present: EOMI Conjunctiva: Present: Normal Mouth: Present: Moist Mucous Membranes Neck: Present: Normal Range of Motion Respiratory/Chest: Present: Clear to Auscultation, Good Air Exchange. No: Respiratory Distress, Accessory Muscle Use Cardiovascular: Present: Regular Rate and Rhythm, Normal S1, S2. No: Murmurs Abdomen: No: Tenderness, Distention, Peritoneal Signs Upper Extremity: No: Cyanosis, Edema Lower Extremity: No: Edema Neurological: Present: GCS=15, CN II-XII Intact, Speech Normal Skin: Present: Warm, Dry, Normal Color. No: Rashes Psychiatric: Present: Alert, Oriented x 3, Normal Insight, Normal Concentration Medical Decision Making ED Course and Treatment: 08/03/17 00:35 Impression: 52 year old male complaining of obstructed haque catheter. Plan: -- Haque catheter replacement -- Reassess and disposition Prior Visits: Notes and results from previous visits were reviewed. Progress Notes: Haque catheter changes by RN in ER, with passage of urine. No complications. - Scribe Statement The provider has reviewed the documentation as recorded by the Scribe Codi Morel Provider Scribe Attestation: All medical record entries made by the Scribe were at my direction and personally dictated by me. I have reviewed the chart and agree that the record accurately reflects my personal performance of the history, physical exam, medical decision making, and the department course for this patient. I have also personally directed, reviewed, and agree with the discharge instructions and disposition. Disposition/Present on Arrival - Present on Arrival Any Indicators Present on Arrival: No History of DVT/PE: Yes History of Uncontrolled Diabetes: No Urinary Catheter: Yes History of Decub. Ulcer: Yes History Surgical Site Infection Following: None - Disposition Have Diagnosis and Disposition been Completed?: Yes Diagnosis: Obstructed Haque catheter Disposition: HOME/ ROUTINE Disposition Time: 01:12 Patient Plan: Discharge Condition: STABLE Additional Instructions: Maintain haque catheter/leg bag/follow up with your doctor this week Forms: [employer] (Yakut)
[2017-08-03 02:28] VITALS: BP 138/79; PULSE 87; RESP 19; O2SAT 100
== END 2017-08-03 02:52 | disposition home or self-care (01) ==
LOC: ED 00:02
DX: T83.098A Other mechanical complication of other urinary catheter, initial encounter (principal); Y84.8 Other medical procedures as the cause of abnormal reaction of the patient, or of later complication, without mention of misadventure at the time of the procedure; Y92.89 Other specified places as the place of occurrence of the external cause

== ENCOUNTER 2017-08-20 17:17 | Inpatient (IN) | payer MEDICAID, OTHER ==
[2017-08-20 17:38] VITALS: BMI 27.5
--- NOTE | 2017-08-20 18:47 | ED PDOC ---
Arrival/HPI - General Historian: Patient - History of Present Illness Time/Duration: Prior to Arrival Symptom Onset: Gradual Symptom Course: Worsening Quality: Aching Severity Level: 7 - General Chief Complaint: Male Genitourinary Time Seen by Provider: 08/20/17 17:19 - History of Present Illness Narrative History of Present Illness (Text): 08/20/17 18:43 Patient is a 52 M with history of T2 level below paraplegia s/p spinal abscess, DVT on coumadin,right ischial decubitus ulcer who presents with complaints of lower abdominal pain which began 5/7 and has persisted and worsened this then. Patient states the pain is a 7/10 waxes and wanes and describes it as sharp. The pain is exacerbated with movement and palpation. Patient has not taken any medications to relieve the pain. Patient states that he has been noticing cloudy white material in his haque bag and believes it might have been clogged as he is not producing as much urine in relation to his input. States last input was 1000 ml and output was 200 ml. Patient states he also has an associated headache. Denies fevers, chills, nausea, vomiting, diarrhea, shortness of breath, chest pain, palpitations. 08/20/17 18:52 (Telly Cowart) Past Medical History - Provider Review Nursing Documentation Reviewed: Yes - Infectious Disease Hx of Infectious Diseases: None - Cardiac Hx Cardiac Disorders: No - Pulmonary Hx Respiratory Disorders: No - Neurological Hx Neurological Disorder: Yes Other/Comment: paraplegic - HEENT Hx HEENT Disorder: No - Renal Hx Renal Disorder: No - Endocrine/Metabolic Hx Endocrine Disorders: No - Hematological/Oncological Hx Blood Disorders: Yes Hx Anemia: Yes (H/O BLOOD TRANSFUSION) - Integumentary Hx Dermatological Disorder: Yes Other/Comment: 05-26-17 PRESSURE SACRAL ULCER-HEALING WOUND BUT HAS 2 OPEN WOUND STAGE 2 1 CM IN DM. RIGHT BUTTOCK PRESSURE ULCER WITH OPEN WOUND SMOOTH EDGES, WOUND VAC AT HOME,NON HEALING WOUND.DEPTH OF 5 CM WITH INDURATION OF 3.5 AT 12 OCLOCK.WOUND BED HAS MOIST BLACK FILM NECROTIC TISSUE. LEFT HEEL HAS A PRESSURE ULCER BLACKENED NECROTIC TISSUE COVERING WHOLE WOUND.MEASURES 3 X 4 CM. - Musculoskeletal/Rheumatological Hx Musculoskeletal Disorders: No Hx Falls: No - Gastrointestinal Hx Gastrointestinal Disorders: Yes (COLOSTOMY LEFT.) Hx Colostomy: Yes - Genitourinary/Gynecological Hx Genitourinary Disorders: Yes Hx Incontinence: Yes Other/Comment: has haque and diaper - Psychiatric Hx Psychophysiologic Disorder: No Hx Substance Use: No - Surgical History Other/Comment: colostomy bag - Anesthesia Hx Anesthesia Reactions: No Hx Malignant Hyperthermia: No Family/Social History - Physician Review Nursing Documentation Reviewed: Yes Family/Social History: Other (non contributory) Smoking Status: Former Smoker Hx Alcohol Use: Yes Hx Substance Use: No Allergies/Home Meds Allergies/Adverse Reactions: Allergies ceftriaxone [From Rocephin] Adverse Reaction (Mild, Verified 08/20/17 18:07) BURNING AT IV SITE BURNING/ITCHING AT IV SITE; NOT GENERALIZED RASH Cephalosporins Adverse Reaction (Mild, Verified 08/20/17 18:07) BURNING AT IV SITE LOCALIZED BURNING/ITCHING AT IV SITE; NOT GENERALIZED RASH Home Medications: Home Meds Medication Instructions Recorded Confirmed Warfarin [Coumadin] 6 mg PO 1800 05/26/17 08/03/17 Review of Systems - Physician Review All systems were reviewed & negative as marked: Yes - Review of Systems Constitutional: Normal. absent: Fatigue, Fevers Eyes: Normal ENT: Normal Respiratory: Normal. absent: SOB, Cough Cardiovascular: absent: Chest Pain, Palpitations Gastrointestinal: Abdominal Pain (lower quadrant bilaterally) Genitourinary Male: Urinary Output Changes (decreased output) Musculoskeletal: absent: Back Pain Skin: absent: Rash, Pruritis Neurological: Headache. absent: Dizziness Endocrine: Normal Hemo/Lymphatic: Normal Psychiatric: Normal Physical Exam Vital Signs Reviewed: Yes Temperature: Afebrile Blood Pressure: Normal Pulse: Regular Respiratory Rate: Normal Appearance: Positive for: Well-Appearing, Non-Toxic, Comfortable Pain Distress: None Mental Status: Positive for: Alert and Oriented X 3 - Systems Exam Head: Present: Atraumatic, Normocephalic Pupils: Present: PERRL Extroacular Muscles: Present: EOMI Conjunctiva: Present: Normal Mouth: Present: Moist Mucous Membranes Neck: Present: Normal Range of Motion Respiratory/Chest: Present: Clear to Auscultation, Good Air Exchange. No: Wheezes, Rhonchi Cardiovascular: Present: Regular Rate and Rhythm, Normal S1, S2 Abdomen: Present: Tenderness (b/l LQ), Normal Bowel Sounds Back: Present: Decubitus Ulcer (right ischial decubitus ulcer), Other. No: Normal Inspection Upper Extremity: Present: Normal Inspection. No: Edema Lower Extremity: No: Normal Inspection (pedal wounds ) Neurological: Present: GCS=15, CN II-XII Intact, Speech Normal Skin: Present: Other (right ischial decubitus ulcer) Psychiatric: Present: Alert, Oriented x 3, Normal Insight Medical Decision Making Re-evaluation Time: 18:53 Reassessment Condition: Improving,but remains with symptoms ED Course and Treatment: 08/20/17 18:53 Change haque catheter; re-assess pain Administer pain meds CBC, CMP, Urinalysis, Urine C&S (Telly Cowart) 08/20/17 18:58 52 yo male with abdominal pain and possible haque obstruction -- Labs -- Haque change -- Pain control -- UA/Cx -- CT abd/pelv -- Reevaluation and disposition. Case will be signed out to Dr. Caballero to f/u labs, imaging, reevaluation and disposition (Bipin Marshall) - RAD Interpretation Radiology Orders: 08/20/17 17:40 ABDOMEN & PELVIS [ABD & PELVIS W/O PO OR IV CONT] [CT] Stat Disposition/Present on Arrival - Present on Arrival Any Indicators Present on Arrival: No History of DVT/PE: Yes History of Uncontrolled Diabetes: No Urinary Catheter: Yes History of Decub. Ulcer: No History Surgical Site Infection Following: None - Disposition Have Diagnosis and Disposition been Completed?: No Disposition Time: 18:56 - Disposition Diagnosis: Urinary retention Condition: FAIR [facility] - Follow up with primary Forms: [employer] (Filipino)
[2017-08-20 19:09] LABS: BASO # 0.01 K/mm3 (0.0-2.0); BASO % 0.1 % (0.0-3.0); EOS # 0.1 (0.0-0.7); EOS % 1.5 % (1.5-5.0); GRAN # 4.99 (1.4-6.5); GRAN % 68.1 % (50.0-68.0); LYMPH # 1.4 (1.2-3.4); MEAN CELL VOLUME 80.7 fl (80.0-105.0); MEAN CORPUSCULAR HEMOGLOBIN 26.5 pg (25.0-35.0); MEAN CORPUSCULAR HGB CONC 32.8 g/dl (31.0-37.0); MEAN PLATELET VOLUME 11.3 fl (7.0-11.0); MONO # 0.8 (0.1-0.6); MONO % 11.3 % (1.0-6.0); RBC 4.91 10^6/uL (3.5-6.1); RED CELL DISTRIBUTION WIDTH 15.8 % (11.5-14.5); URINE BILIRUBIN NEGATIVE (NEGATIVE); URINE BLOOD MODERATE (NEGATIVE); URINE GLUCOSE (UA) NEGATIVE (NEGATIVE); URINE LEUKOCYTE ESTERASE MODERATE Leu/uL (NEGATIVE); URINE PROTEIN TRACE mg/dL (<30 mg/dL); URINE UROBILINOGEN 0.2 E.U./dL (<1 E.U./dL); WHITE BLOOD COUNT 7.3 10^3/ul (4.5-11.0)
[2017-08-20 19:13] LABS: URINE APPEARANCE SL CLOUDY (CLEAR); URINE COLOR YELLOW (YELLOW)
[2017-08-20 19:15] LABS: URINE BACTERIA FEW (NEG); URINE WBC 25 - 30 /hpf (0-6)
[2017-08-20 19:19] LABS: ALBUMIN 4.3 g/dL (3.0-4.8); ALT/SGPT 24 U/L (7-56); AST/SGOT 28 U/L (17-59); BLOOD UREA NITROGEN 19 mg/dL (7-21); CALCIUM 9.3 mg/dL (8.4-10.5); GFR AFRICAN-AMERICAN > 60; GFR NON-AFRICAN AMERICAN > 60
--- NOTE | 2017-08-20 21:15 | CT ---
EXAM: CT Abdomen and Pelvis Without Intravenous Contrast EXAM DATE/TIME: 08/20/2017 5:40 PM CLINICAL HISTORY: The patient age is 52 years old and is male; Pain; Abdominal pain; Prior surgery; Surgery type: Colostomy; Additional info: Diffuse abdominal pain Facility exam id and description: Ct abdpelscon abd pelvis w/o po or iv cont TECHNIQUE: Axial computed tomography images of the abdomen and pelvis without intravenous contrast. All CT scans at this facility use one or more dose reduction techniques, viz.: automated exposure control; ma/kV adjustment per patient size (including targeted exams where dose is matched to indication; i.e. head); or iterative reconstruction technique. Coronal and sagittal reformatted images were created and reviewed. COMPARISON: CT - ABD PELVIS PO IV CONTRAST 2017-01-28 18:32 FINDINGS: Lung bases: Atelectatic changes are visualized at the bilateral lung bases. Heart: There is coronary artery calcification. Mediastinum: There is a small hiatal hernia. ABDOMEN: Liver: Artifact limits evaluation of the left hepatic lobe. Otherwise, there is no visualized hepatic mass. Gallbladder and bile ducts: Calcified gallstones are identified. Pancreas: Normal contour. No ductal dilation. Spleen: No splenomegaly. Adrenals: There is thickening of the left adrenal gland, stable compared to the prior study. Kidneys and ureters: No obstructing stones. No hydronephrosis. Stomach and bowel: There is wall thickening of the sigmoid colon and rectum, which can be contributed by incomplete distention but is suggestive of proctocolitis. An ostomy is identified involving the ventral abdominal wall. Moderate fecal material is identified within the colon. PELVIS: Appendix: No findings to suggest acute appendicitis. Bladder: A Mackenzie catheter is visualized within the bladder. Foci of gas are also seen within the bladder, presumed to be iatrogenic. A calculus is identified lateral to the Mackenzie catheter within the bladder measuring 0.9 x 0.5 cm, new compared to the prior study. Reproductive: Unremarkable as visualized. ABDOMEN and PELVIS: Intraperitoneal space: No free air. Bones/joints: There is new sclerotic change involving the right ischium, suggestive of chronic osteomyelitis. Hypertrophic degenerative changes are noted within the spine. Sclerotic changes are visualized involving the bilateral femoral heads, which can be secondary to arthropathy or osteonecrosis. Soft tissues: There is a new area of tissue loss or ulceration postero-inferior to the right ischial tuberosity. Adjacent to the ischial tuberosity, there is a hypodense area of soft tissue swelling/fluid measuring 3.8 x 2.2 cm. This is concerning for abscess or phlegmonous change, although this evaluation is limited by the absence as contrast. Soft tissue swelling is identified posterior to the sacrum and coccyx, but this has improved compared to the prior study. Mild stable lytic changes are visualized involving the coccyx. Heterotopic ossification with adjacent soft tissue swelling are identified superior to each hip and contiguous with the iliac bones. This is new on the right side. Vasculature: An IVC filter is visualized. No abdominal aortic aneurysm. Lymph nodes: Enlarging lymph nodes are visualized bilaterally, similar to the prior study. An enlarged left inguinal lobe measures 2.3 x 0.9 cm. A few mildly enlarged intrapelvic lymph nodes are also visualized. Small retroperitoneal lymph nodes are identified, without significant retroperitoneal lymphadenopathy. IMPRESSION: 1. There is a new area of tissue loss or ulceration postero-inferior to the right ischial tuberosity. Adjacent to the ischial tuberosity, there is a hypodense area of soft tissue swelling/fluid measuring 3.8 x 2.2 cm. This is concerning for abscess or phlegmonous change, although this evaluation is limited by the absence as contrast. 2. There is new sclerotic change involving the right ischium, suggestive of chronic osteomyelitis. 3. Soft tissue swelling is identified posterior to the sacrum and coccyx, but this has improved compared to the prior study. Mild stable lytic changes are visualized involving the coccyx. 4. Cholelithiasis. 5. There is wall thickening of the sigmoid colon and rectum, which can be contributed by incomplete distention, but is suggestive of proctocolitis. 6. Enlarging lymph nodes are visualized bilaterally, similar to the prior study. A few mildly enlarged intrapelvic lymph nodes are also visualized. 7. A Mackenzie catheter is visualized within the bladder. Foci of gas are also seen within the bladder, presumed to be iatrogenic. A calculus is identified lateral to the Mackenzie catheter within the bladder measuring 0.9 x 0.5 cm, new compared to the prior study. 8. Additional CT findings described above.
[2017-08-20] MEDS ORDERED: Aztreonam 1 Gm in NS 100mL 100 ML IVPB STA (22:00)
--- NOTE | 2017-08-20 22:19 | ED PDOC ---
Physical Exam Vital Signs Reviewed: Yes Vital Signs Temp Pulse Resp BP Pulse Ox 08/20/17 22:04 98.3 F 65 18 119/57 L 95 08/20/17 19:11 98.3 F 70 22 128/66 99 Temperature: Afebrile Blood Pressure: Normal Pulse: Regular Respiratory Rate: Normal Appearance: Positive for: Well-Appearing, Non-Toxic, Comfortable Pain Distress: None Mental Status: Positive for: Alert and Oriented X 3 Medical Decision Making ED Course and Treatment: 08/20/17 21:19: Patient endorsed to my by Dr. Marshall. Patient presents to the emergency department for a complaint of worsening lower abdominal pain. Will follow-up on labs, imaging, reevaluation and disposition. 08/20/17 21:10: Case discussed in detail with medical service technician who will come evaluate patient. case d/w dr sandoval, pt still with pain and uti 08/20/17 21:19: 08/21/17 05:51 - Lab Interpretations Lab Results: 08/20/17 18:40 08/20/17 18:40 Lab Results 08/20/17 18:40: Sodium 144, Potassium 3.8, Chloride 103, Carbon Dioxide 27, Anion Gap 17, BUN 19, Creatinine 0.7 L, Est GFR ( Amer) > 60, Est GFR ( Non-Af Amer) > 60, Random Glucose 93, Calcium 9.3, Total Bilirubin 0.4, AST 28, ALT 24, Alkaline Phosphatase 75, Total Protein 8.4 H, Albumin 4.3, Globulin 4.1 , Albumin/Globulin Ratio 1.0 L 08/20/17 18:40: Urine Color Yellow, Urine Appearance Sl cloudy, Urine pH 7.0, Ur Specific [place] 1.015, Urine Protein Trace H, Urine Glucose (UA) Negative, Urine Ketones Negative, Urine Blood Moderate H, Urine Nitrate Positive H, Urine Bilirubin Negative, Urine Urobilinogen 0.2, Ur Leukocyte Esterase Moderate H, Urine RBC 10 - 15, Urine WBC 25 - 30, Urine Bacteria Few 08/20/17 18:40: WBC 7.3 D, RBC 4.91, Hgb 13.0 L D, Hct 39.6 L, MCV 80.7, MCH 26.5, MCHC 32.8, RDW 15.8 H, Plt Count 189, MPV 11.3 H, Gran % 68.1 H, Lymph % ( Auto) 19.0 L, [place] % (Auto) 11.3 H, Eos % (Auto) 1.5, Baso % (Auto) 0.1, Gran # 4.99, Lymph # (Auto) 1.4, [place] # (Auto) 0.8 H, Eos # (Auto) 0.1, Baso # (Auto) 0.01 I have reviewed the lab results: Yes - RAD Interpretation Radiology Orders: 08/20/17 17:40 ABDOMEN & PELVIS [ABD & PELVIS W/O PO OR IV CONT] [CT] Stat - Medication Orders Current Medication Orders: Aztreonam (Azactam 1 Gm) 100 mls @ 100 mls/hr IVPB STAT STA PRN Reason: Protocol Stop: 08/20/17 22:59 Discontinued Medications Acetaminophen (Tylenol 325mg Tab) 650 mg PO STAT STA Stop: 08/20/17 19:09 Last Admin: 08/20/17 19:17 Dose: 650 mg MAR Pain/Vitals Document 08/20/17 19:17 LA (Rec: 08/20/17 19:19 LA [id number]) Pain Reassessment Is This A Pain ReAssessment? No Sleep Is patient sleeping during reassessment? No Presence of Pain Presence of Pain Yes Location Intensity 4 Scale Used Numeric - Scribe Statement The provider has reviewed the documentation as recorded by the Yesica Wagner Provider Scribe Attestation: All medical record entries made by the Scribe were at my direction and personally dictated by me. I have reviewed the chart and agree that the record accurately reflects my personal performance of the history, physical exam, medical decision making, and the department course for this patient. I have also personally directed, reviewed, and agree with the discharge instructions and disposition. Disposition/Present on Arrival - Present on Arrival Any Indicators Present on Arrival: No History of DVT/PE: Yes History of Uncontrolled Diabetes: No Urinary Catheter: Yes History of Decub. Ulcer: No History Surgical Site Infection Following: None - Disposition Have Diagnosis and Disposition been Completed?: Yes Diagnosis: Urinary retention, Urinary tract infection Disposition: HOSPITALIZED Disposition Time: 22:00 Patient Problems: Current Active Problems Problem Status Onset Urinary retention Acute Condition: FAIR
[2017-08-20] MEDS ORDERED: Vancomycin 1gm in NS 250ml 1 GM/250 ML BAG IVPB STA (22:21)
--- NOTE | 2017-08-20 22:44 | CP.PCM.CON ---
History of Present Illness - History of Present Illness History of Present Illness: General Surgery Consult Note for Dr. 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 General surgery was consulted for sacral wound and CT finding of possible abscess. Patient was seen and evaluated in the ED. Patient states that he recently lost his medicaid and subsequently lost visiting nurse. He reports that his niece is a RN and has been helping him with wound care and dressing changes. He previously had wound vac on the area. Patient states that there has been no changes in the wound since wound vac. Admits to cloudy urine. Denies any fevers/ chills, headache, chest pain, SOB, nausea/vomiting, palpitations. PMD: Dr. 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, colostomy, indwelling haque, DVT on Coumadin, stage 4 sacral decubitus ulcer and HTN Meds: as per EMR Allergy: Ceftriaxone, cephalosporins PSH: Laminectomy and Colostomy Family History: Non-contributory Social History: Former smoker (quit 1 year ago, 20 year pack history), denies EtOH/illicit drug use Review of Systems - Review of Systems All systems: reviewed and no additional remarkable complaints except (as per HPI ) Past Patient History - Infectious Disease Hx of Infectious Diseases: None - Past Social History Smoking Status: Former Smoker - CARDIAC Hx Cardiac Disorders: No - PULMONARY Hx Respiratory Disorders: No - NEUROLOGICAL Hx Neurological Disorder: Yes Other/Comment: paraplegic - HEENT Hx HEENT Problems: No - RENAL Hx Chronic Kidney Disease: No - ENDOCRINE/METABOLIC Hx Endocrine Disorders: No - HEMATOLOGICAL/ONCOLOGICAL Hx Blood Disorders: Yes Hx Anemia: Yes (H/O BLOOD TRANSFUSION) - INTEGUMENTARY Hx Dermatological Problems: Yes Other/Comment: 05-26-17 PRESSURE SACRAL ULCER-HEALING WOUND BUT HAS 2 OPEN WOUND STAGE 2 1 CM IN DM. RIGHT BUTTOCK PRESSURE ULCER WITH OPEN WOUND SMOOTH EDGES, WOUND VAC AT HOME,NON HEALING WOUND.DEPTH OF 5 CM WITH INDURATION OF 3.5 AT 12 OCLOCK.WOUND BED HAS MOIST BLACK FILM NECROTIC TISSUE. LEFT HEEL HAS A PRESSURE ULCER BLACKENED NECROTIC TISSUE COVERING WHOLE WOUND.MEASURES 3 X 4 CM. - MUSCULOSKELETAL/RHEUMATOLOGICAL Hx Musculoskeletal Disorders: No Hx Falls: No - GASTROINTESTINAL Hx Gastrointestinal Disorders: Yes (COLOSTOMY LEFT.) Hx Colostomy: Yes - GENITOURINARY/GYNECOLOGICAL Hx Genitourinary Disorders: Yes Hx Incontinence: Yes Other/Comment: has haque and diaper - PSYCHIATRIC Hx Psychophysiologic Disorder: No Hx Substance Use: No - SURGICAL HISTORY Other/Comment: colostomy bag - ANESTHESIA Hx Anesthesia Reactions: No Hx Malignant Hyperthermia: No Meds Allergies/Adverse Reactions: Allergies Allergy/AdvReac Type Severity Reaction Status Date / Time ceftriaxone [From Rocephin] AdvReac Mild BURNING AT Verified 08/20/17 18:07 IV SITE Cephalosporins AdvReac Mild BURNING AT Verified 08/20/17 18:07 IV SITE - Medications Medications: Current Medications Aztreonam (Azactam 1 Gm) 100 mls @ 100 mls/hr IVPB STAT STA PRN Reason: Protocol Stop: 08/20/17 22:59 Last Admin: 08/20/17 22:10 Dose: 100 mls/hr Vancomycin HCl (Vancomycin 1gm) 1 gm in 250 mls @ 167 mls/hr IVPB STAT STA PRN Reason: Protocol Stop: 08/20/17 23:50 Physical Exam - Constitutional Appears: No Acute Distress - Head Exam Head Exam: ATRAUMATIC, NORMOCEPHALIC - Eye Exam Eye Exam: EOMI, Normal appearance Pupil Exam: PERRL - ENT Exam ENT Exam: Mucous Membranes Moist - Respiratory Exam Respiratory Exam: Clear to Auscultation Bilateral, NORMAL BREATHING PATTERN - Cardiovascular Exam Cardiovascular Exam: REGULAR RHYTHM, +S1, +S2 - GI/Abdominal Exam GI & Abdominal Exam: Normal Bowel Sounds, Soft, Tenderness (mild suprapubic). absent: Distended, Firm, Guarding, Rebound, Rigid Additional comments: colostomy draining stool - Rectal Exam Additional comments: no tone, smooth rectal white, no mass, induration or fluctuance noted - Extremities Exam Extremities exam: Positive for: normal capillary refill, pedal pulses present - Back Exam Additional comments: R buttock wound 6 x5 x 4 cm, wet to dry dressing - wound was probe, no evidence of abscess or drainage noted L buttock wound with optiform dressing - Neurological Exam Neurological exam: Alert, CN II-XII Intact, Oriented x3 - Psychiatric Exam Psychiatric exam: Normal Affect, Normal Mood - Skin Skin Exam: Dry, Warm Results - Vital Signs Recent Vital Signs: Last Vital Signs Temp 98.3 F 08/20/17 22:04 Pulse 65 08/20/17 22:04 Resp 18 08/20/17 22:04 BP 119/57 L 08/20/17 22:04 Pulse Ox 95 08/20/17 22:04 - Labs Result Diagrams: 08/21/17 07:15 08/21/17 07:15 Assessment & Plan - Assessment and Plan (Free Text) Assessment: 52 M with UTI and sacral wound Plan: -Continue IV antibiotics -Continue IV fluids -Local wound care -f/u wound culture -f/u blood culture -Discussed with Dr. Randal Smith PGY1
--- NOTE | 2017-08-20 22:51 | CP.PCM.HP ---
<Paul Renteria - Last Filed: 08/21/17 02:36> History of Present Illness - History of Present Illness History of Present Illness: CC: UTI/Abdominal Pain Mr. 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 Patient reports that two days ago he began to notice his urine was becoming more cloudy and then today began to experience cramping abdominal pain in the hypogastric region. He rates this pain as a 5/10 and does not associate it with PO intake, BM's or position. He states that these symptoms are usually indicative of a UTI. He reports that his indwelling haque was last changed two weeks ago [place] [facility] [place] [facility]. He otherwise denies any fevers, chills, headache, chest pain, PMD: Dr. Ishan Dominguez PMH: As stated above PSH: Laminectomy and Colostomy Family History: Non-contributory Social History: Former smoker (quit 1 year ago after approx. 20 year pack smoking history) and denies any alcohol or illicit drug use Allergies: Rocephin and Cephalosporins Home Medications: As per MAR Present on Admission - Present on Admission Any Indicators Present on Admission: Yes History of DVT/PE: Yes Urinary Catheter: Yes Decubitus Ulcer Present: Yes Decubitus Ulcer Stage: IV Review of Systems - Review of Systems Review of Systems: As stated in HPI, otherwise negative Past Patient History - Infectious Disease Hx of Infectious Diseases: None - Past Social History Smoking Status: Former Smoker - CARDIAC Hx Cardiac Disorders: No - PULMONARY Hx Respiratory Disorders: No - NEUROLOGICAL Hx Neurological Disorder: Yes Other/Comment: paraplegic - HEENT Hx HEENT Problems: No - RENAL Hx Chronic Kidney Disease: No - ENDOCRINE/METABOLIC Hx Endocrine Disorders: No - HEMATOLOGICAL/ONCOLOGICAL Hx Blood Disorders: Yes Hx Anemia: Yes (H/O BLOOD TRANSFUSION) - INTEGUMENTARY Hx Dermatological Problems: Yes Other/Comment: 05-26-17 PRESSURE SACRAL ULCER-HEALING WOUND BUT HAS 2 OPEN WOUND STAGE 2 1 CM IN DM. RIGHT BUTTOCK PRESSURE ULCER WITH OPEN WOUND SMOOTH EDGES, WOUND VAC AT HOME,NON HEALING WOUND.DEPTH OF 5 CM WITH INDURATION OF 3.5 AT 12 OCLOCK.WOUND BED HAS MOIST BLACK FILM NECROTIC TISSUE. LEFT HEEL HAS A PRESSURE ULCER BLACKENED NECROTIC TISSUE COVERING WHOLE WOUND.MEASURES 3 X 4 CM. - MUSCULOSKELETAL/RHEUMATOLOGICAL Hx Musculoskeletal Disorders: No Hx Falls: No - GASTROINTESTINAL Hx Gastrointestinal Disorders: Yes (COLOSTOMY LEFT.) Hx Colostomy: Yes - GENITOURINARY/GYNECOLOGICAL Hx Genitourinary Disorders: Yes Hx Incontinence: Yes Other/Comment: has haque and diaper - PSYCHIATRIC Hx Psychophysiologic Disorder: No Hx Substance Use: No - SURGICAL HISTORY Other/Comment: colostomy bag - ANESTHESIA Hx Anesthesia Reactions: No Hx Malignant Hyperthermia: No Meds Allergies/Adverse Reactions: Allergies Allergy/AdvReac Type Severity Reaction Status Date / Time ceftriaxone [From Rocephin] AdvReac Mild BURNING AT Verified 08/20/17 18:07 IV SITE Cephalosporins AdvReac Mild BURNING AT Verified 08/20/17 18:07 IV SITE Physical Exam - Constitutional Appears: Non-toxic, No Acute Distress - Head Exam Head Exam: ATRAUMATIC, NORMOCEPHALIC - Eye Exam Eye Exam: EOMI, Normal appearance, PERRL - ENT Exam ENT Exam: Mucous Membranes Moist, Normal Exam - Neck Exam Neck exam: Positive for: Full Rom, Normal Inspection. Negative for: Lymphadenopathy, Meningismus, Tenderness, Thyromegaly - Respiratory Exam Respiratory Exam: Clear to Auscultation Bilateral, NORMAL BREATHING PATTERN. absent: Accessory Muscle Use, Chest Wall Tenderness, Decreased Breath Sounds, Prolonged Expiratory Phase, Rales, Rhonchi, Wheezes, Respiratory Distress, Stridor - Cardiovascular Exam Cardiovascular Exam: REGULAR RHYTHM, RRR, +S1, +S2. absent: Bradycardia, Tachycardia, Clicks, Diastolic murmur, Gallop, Irregular Rhythm, JVD, Rubs, +S4 , Systolic Murmur - GI/Abdominal Exam GI & Abdominal Exam: Normal Bowel Sounds, Soft. absent: Bruit, Diminished Bowel Sounds, Distended, Firm, Guarding, Hernia, Hyperactive Bowel Sounds, Hypoactive Bowel Sounds, Mass, Organomegaly, Pulsatile Mass, Rebound, Rigid, Tenderness Additional comments: Ostomy with empty drainage bag intact - Extremities Exam Extremities exam: Positive for: normal capillary refill, pedal pulses present. Negative for: joint swelling, pedal edema Additional comments: Stage 4 sacral decubitus ulcer to right ischial tuberosity - Neurological Exam Neurological exam: Alert, Oriented x3 - Psychiatric Exam Psychiatric exam: Normal Affect, Normal Mood - Skin Skin Exam: Dry, Warm Results - Vital Signs Recent Vital Signs: Last Vital Signs Temp 98.3 F 08/20/17 22:04 Pulse 65 08/20/17 22:04 Resp 18 08/20/17 22:04 BP 119/57 L 08/20/17 22:04 Pulse Ox 95 08/20/17 22:04 - Labs Result Diagrams: 08/20/17 18:40 08/20/17 18:40 Assessment & Plan - Assessment and Plan (Free Text) Assessment: 52 year old male with a past medical history significant for 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 Plan: 1. Catheter Associated UTI -CT Abdomen/Pelvis showing no signs of pyelonephritis or inflammatory changes of the urinary tract -UA showing positive nitrates, moderate LE, 25-30 WBC's and few bacteria -Afebrile and without tachycardia, tachypnea or leukocytosis -Haque changed in ED -Urine culture pending -IV Aztreonam and IV Vancomycin (at 80mls/hr) started for empiric coverage -Normal Saline at 100mls/hr -Benadryl PRN for itching/red man syndrome -Tylenol PRN for fever -Zofran PRN for N/V -ID consulted, all recommendations appreciated 2. Stage 4 Sacral Decubitus Ulcer of Right Ischial Tuberosity -CT Abdomen/Pelvis showed new area of tissue loss or ulceration postero- inferior to right ischial tuberosity with area of hypodense soft tissue swelling /fluid measuring 3.8x2.2cm suspicious for abscess -Wound culture pending -On IV Vancomycin -Surgery and Wound Care Nursing consulted, all recommendations appreciated 3. History of DVT -Continue home Coumadin -Daily INR GI Prophylaxis: Protonix DVT Prophylaxis: Coumadin Diet: Regular Patient seen and case discussed with attending, Dr. Awan. Beyer PGY1 - Date & Time Date: 08/20/17 Time: 22:51 <Trenton Sutton - Last Filed: 08/21/17 04:41> Results - Vital Signs Recent Vital Signs: Last Vital Signs Temp 97.8 F 08/21/17 03:12 Pulse 100 H 08/21/17 03:12 Resp 20 08/21/17 03:12 BP 145/76 08/21/17 03:12 Pulse Ox 99 08/21/17 02:05 - Labs Result Diagrams: 08/20/17 18:40 08/20/17 18:40 Attending/Attestation - Attestation I have personally seen and examined this patient.: Yes I have fully participated in the care of the patient.: Yes I have reviewed all pertinent clinical information: Yes
[2017-08-20] MEDS ORDERED: Vancomycin 1gm in NS 250ml 1 GM/250 ML BAG IVPB SCH (23:00)
[2017-08-20] MEDS: Sodium Chloride 0.9% 1,000 ML IV SCH (23:10)
[2017-08-20] MEDS ORDERED: DiphenhydrAMINE 50 mg/ml Inj ONE (23:13)
[2017-08-20] MEDS ORDERED: DiphenhydrAMINE 50 mg/ml Inj IVP ONE (23:20)
[2017-08-21] MEDS ORDERED: DiphenhydrAMINE 50 mg/ml Inj IVP STA (00:09)
[2017-08-21] MEDS ORDERED: Vancomycin 1gm in NS 250ml 1 GM/250 ML BAG IVPB SCH ×2 (01:15→10:00)
[2017-08-21] MEDS: Vancomycin 1gm in NS 250ml 1 GM/250 ML BAG IVPB SCH ×2 (01:31→22:01)
[2017-08-21] MEDS: Pantoprazole 40 mg EC Tab PO SCH (05:39)
[2017-08-21] MEDS ORDERED: Aztreonam 1 Gm in NS 100mL 100 ML IVPB SCH (06:00)
[2017-08-21] MEDS: Meropenem IV 1 gm in NS 50 ML IVPB SCH ×3 (07:29→22:00)
[2017-08-21 07:49] LABS: BASO # 0.02 K/mm3 (0.0-2.0); BASO % 0.3 % (0.0-3.0); EOS % 0.5 % (1.5-5.0); GRAN # 6.49 (1.4-6.5); GRAN % 81.7 % (50.0-68.0); HEMOGLOBIN 11.5 g/dL (14.0-18.0); LYMPH # 0.8 (1.2-3.4); LYMPH % 9.7 % (22.0-35.0); MEAN CELL VOLUME 80.5 fl (80.0-105.0); MEAN CORPUSCULAR HGB CONC 32.3 g/dl (31.0-37.0); MEAN PLATELET VOLUME 11.7 fl (7.0-11.0); MONO # 0.6 (0.1-0.6); MONO % 7.8 % (1.0-6.0); RBC 4.42 10^6/uL (3.5-6.1); RED CELL DISTRIBUTION WIDTH 15.8 % (11.5-14.5); WHITE BLOOD COUNT 7.9 10^3/ul (4.5-11.0)
[2017-08-21 07:57] LABS: INR 1.73 (0.93-1.08); PARTIAL THROMBOPLASTIN TIME 32.3 Seconds (25.1-36.5); PROTHROMBIN TIME 20.1 SECONDS (9.4-12.5)
[2017-08-21 08:03] LABS: ALB/GLOB RATIO 1.1 (1.1-1.8); ALBUMIN 3.8 g/dL (3.0-4.8); ALT/SGPT 27 U/L (7-56); AST/SGOT 15 U/L (17-59); BLOOD UREA NITROGEN 15 mg/dL (7-21); CALCIUM 8.9 mg/dL (8.4-10.5); GFR AFRICAN-AMERICAN > 60; GFR NON-AFRICAN AMERICAN > 60
--- NOTE | 2017-08-21 10:59 | CP.PCM.PN ---
<Mekhi Simental - Last Filed: 08/21/17 11:05> Subjective - Date & Time of Evaluation Date of Evaluation: 08/21/17 Time of Evaluation: 06:00 - Subjective Subjective: Patient seen and evaluated bedside. No acute issues overnight. Patient states his pain below the belly has improved and urine is now clear and not cloudy. Patient denies chest pain, fever, chills or any other problems at this time. Objective - Vital Signs/Intake and Output Vital Signs (last 24 hours): Temp Pulse Resp BP Pulse Ox 97.8 F 85 20 118/69 99 08/21/17 06:00 08/21/17 06:00 08/21/17 06:00 08/21/17 06:00 08/21/17 06:00 Intake and Output: 08/21/17 08/21/17 06:59 18:59 Intake Total 300 Output Total 700 Balance -400 - Medications Medications: Current Medications Acetaminophen (Tylenol 325mg Tab) 650 mg PO Q6H PRN PRN Reason: Fever >100.4 F Last Admin: 08/21/17 05:39 Dose: 650 mg Ascorbic Acid (Vitamin C 500 Mg Tab) 500 mg PO DAILY DONAL Last Admin: 08/21/17 10:44 Dose: 500 mg Baclofen (Lioresal) 20 mg PO BID PRN PRN Reason: Pain, Mild (1-3) Last Admin: 08/21/17 05:47 Dose: 20 mg Diphenhydramine HCl (Benadryl) 50 mg PO Q8 PRN PRN Reason: Itching / Pruritus Gabapentin (Neurontin) 300 mg PO BID DONAL PRN Reason: Protocol Last Admin: 08/21/17 10:44 Dose: 300 mg Sodium Chloride (Sodium Chloride 0.9%) 1,000 mls @ 100 mls/hr IV .Q10H DONAL Last Admin: 08/20/17 23:10 Dose: 100 mls/hr Vancomycin HCl (Vancomycin 1gm) 1 gm in 250 mls @ 80 mls/hr IVPB Q12 DONAL PRN Reason: Protocol Last Admin: 08/21/17 01:31 Dose: 80 mls/hr Meropenem (Merrem Iv 1 Gm Premix) 50 mls @ 100 mls/hr IVPB Q8 DONAL PRN Reason: Protocol Last Admin: 08/21/17 07:29 Dose: 100 mls/hr Ondansetron HCl (Zofran Inj) 4 mg IVP Q4H PRN PRN Reason: Nausea/Vomiting Pantoprazole Sodium (Protonix Ec Tab) 40 mg PO 0600 DONAL Last Admin: 08/21/17 05:39 Dose: 40 mg Warfarin Sodium (Coumadin) 6 mg PO 1800 DONAL PRN Reason: Protocol - Labs Labs: 08/21/17 07:15 08/21/17 07:15 PT 20.1 SECONDS (9.4-12.5) H 08/21/17 07:15 INR 1.73 (0.93-1.08) H 08/21/17 07:15 APTT 32.3 Seconds (25.1-36.5) 08/21/17 07:15 - Constitutional Appears: Non-toxic, No Acute Distress - Head Exam Head Exam: ATRAUMATIC, NORMAL INSPECTION, NORMOCEPHALIC - Eye Exam Eye Exam: Normal appearance - ENT Exam ENT Exam: Mucous Membranes Moist - Respiratory Exam Respiratory Exam: Clear to Ausculation Bilateral, NORMAL BREATHING PATTERN - Cardiovascular Exam Cardiovascular Exam: REGULAR RHYTHM, +S1, +S2 - GI/Abdominal Exam GI & Abdominal Exam: Soft. 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 Plan: 1. Catheter Associated UTI -CT Abdomen/Pelvis showing no signs of pyelonephritis or inflammatory changes of the urinary tract -UA showing positive nitrates, moderate LE, 25-30 WBC's and few bacteria -Afebrile and without tachycardia, tachypnea or leukocytosis -Haque in place -Urine culture pending -meropenem and vancomycin -Normal Saline at 100mls/hr -Benadryl PRN for itching/red man syndrome -Tylenol PRN for fever -Zofran PRN for N/V -ID consulted, follow recs -Urology consulted, ricardo Iqbal recs 2. Stage 4 Sacral Decubitus Ulcer of Right Ischial Tuberosity -CT Abdomen/Pelvis showed new area of tissue loss or ulceration postero- inferior to right ischial tuberosity with area of hypodense soft tissue swelling /fluid measuring 3.8x2.2cm suspicious for abscess -Wound culture pending -vancomycin and meropenem -Surgery and Wound Care Nursing consulted, all recommendations appreciated -ESR : 70 3. History of DVT -Continue home Coumadin -Daily INR GI Prophylaxis: Protonix DVT Prophylaxis: Coumadin Diet: Regular <Miky Hou - Last Filed: 08/21/17 11:22> Objective - Vital Signs/Intake and Output Vital Signs (last 24 hours): Temp Pulse Resp BP Pulse Ox 97.8 F 85 20 118/69 99 08/21/17 06:00 08/21/17 06:00 08/21/17 06:00 08/21/17 06:00 08/21/17 06:00 Intake and Output: 08/21/17 08/21/17 06:59 18:59 Intake Total 300 Output Total 700 Balance -400 - Medications Medications: Current Medications Acetaminophen (Tylenol 325mg Tab) 650 mg PO Q6H PRN PRN Reason: Fever >100.4 F Last Admin: 08/21/17 05:39 Dose: 650 mg Ascorbic Acid (Vitamin C 500 Mg Tab) 500 mg PO DAILY [facility] Last Admin: 08/21/17 10:44 Dose: 500 mg Baclofen (Lioresal) 20 mg PO BID PRN PRN Reason: Pain, Mild (1-3) Last Admin: 08/21/17 05:47 Dose: 20 mg Diphenhydramine HCl (Benadryl) 50 mg PO Q8 PRN PRN Reason: Itching / Pruritus Gabapentin (Neurontin) 300 mg PO BID DONAL PRN Reason: Protocol Last Admin: 08/21/17 10:44 Dose: 300 mg Sodium Chloride (Sodium Chloride 0.9%) 1,000 mls @ 100 mls/hr IV .Q10H DONAL Last Admin: 08/20/17 23:10 Dose: 100 mls/hr Vancomycin HCl (Vancomycin 1gm) 1 gm in 250 mls @ 80 mls/hr IVPB Q12 DONAL PRN Reason: Protocol Last Admin: 08/21/17 01:31 Dose: 80 mls/hr Meropenem (Merrem Iv 1 Gm Premix) 50 mls @ 100 mls/hr IVPB Q8 DONAL PRN Reason: Protocol Last Admin: 08/21/17 07:29 Dose: 100 mls/hr Ondansetron HCl (Zofran Inj) 4 mg IVP Q4H PRN PRN Reason: Nausea/Vomiting Pantoprazole Sodium (Protonix Ec Tab) 40 mg PO 0600 DONAL Last Admin: 08/21/17 05:39 Dose: 40 mg Warfarin Sodium (Coumadin) 6 mg PO 1800 DONAL PRN Reason: Protocol - Labs Labs: 08/21/17 07:15 08/21/17 07:15 PT 20.1 SECONDS (9.4-12.5) H 08/21/17 07:15 INR 1.73 (0.93-1.08) H 08/21/17 07:15 APTT 32.3 Seconds (25.1-36.5) 08/21/17 07:15 Attending/Attestation - Attestation I have personally seen and examined this patient.: Yes I have fully participated in the care of the patient.: Yes I have reviewed all pertinent clinical information, including history, physical exam and plan: Yes Notes (Text): 08/21/17 11:18 52 year old male with past medical history of 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 Continue with iv antibiotics while awaiting urine culture. ID and urology evaluation are requested. CT abd/pelvis also showed new area of tissue loss or ulceration postero- inferior to the right ischial tuberosity with area of hypodense soft tissue swelling / fluid measuring 3.8 x 2.2 cm suspicious for abscess. Continue with antibiotics as above. Will follow up with surgery recommendations. Patient is on coumadin for DVT. Miky Hou MD Hospitalist.
--- NOTE | 2017-08-21 15:11 | CP.PCM.CON ---
History of Present Illness - History of Present Illness History of Present Illness: 52 year old male with PMH of sacral decubitus infection, S/P colostomy, history of epidural abscess secondary to Strep pneumoniae with associated cord compression and lower extremity paralysis and neurogenic bladder S/P neurosurgery for abscess drainage and laminectomy , history of partial small bowel obstruction, significant smoking history , alcohol abuse came in to [facility] complaining of some lower abdominal pain, suprapubic pain. His urine through the Haque catheter has also become cloudy. The Haque has been removed in the ED. He denies fever or chills, no nausea or vomiting, no headache or dizziness, no chest pain, no SOB, no cough or colds, no sore throat, no diarrhea. CT A/P was done and it is also showing some inflammation /phlegmon in the area of the right ischial tuberosity with associated decubitus ulcer. Infectious Diseases consult is requested to further evaluate and manage. Review of Systems - Review of Systems All systems: reviewed and no additional remarkable complaints except (as per HPI ) Past Patient History - Infectious Disease Hx of Infectious Diseases: None - Past Social History Smoking Status: Former Smoker - CARDIAC Hx Cardiac Disorders: No - PULMONARY Hx Respiratory Disorders: No - NEUROLOGICAL Hx Neurological Disorder: Yes Other/Comment: paraplegic - HEENT Hx HEENT Problems: No - RENAL Hx Chronic Kidney Disease: No - ENDOCRINE/METABOLIC Hx Endocrine Disorders: No - HEMATOLOGICAL/ONCOLOGICAL Hx Blood Disorders: Yes Hx Anemia: Yes (H/O BLOOD TRANSFUSION) - INTEGUMENTARY Hx Dermatological Problems: Yes Other/Comment: 05-26-17 PRESSURE SACRAL ULCER-HEALING WOUND BUT HAS 2 OPEN WOUND STAGE 2 1 CM IN DM. RIGHT BUTTOCK PRESSURE ULCER WITH OPEN WOUND SMOOTH EDGES, WOUND VAC AT HOME,NON HEALING WOUND.DEPTH OF 5 CM WITH INDURATION OF 3.5 AT 12 OCLOCK.WOUND BED HAS MOIST BLACK FILM NECROTIC TISSUE. LEFT HEEL HAS A PRESSURE ULCER BLACKENED NECROTIC TISSUE COVERING WHOLE WOUND.MEASURES 3 X 4 CM. - MUSCULOSKELETAL/RHEUMATOLOGICAL Hx Falls: No - GASTROINTESTINAL Hx Gastrointestinal Disorders: Yes (COLOSTOMY LEFT.) Hx Colostomy: Yes - GENITOURINARY/GYNECOLOGICAL Hx Genitourinary Disorders: Yes Hx Incontinence: Yes Other/Comment: has haque and diaper - PSYCHIATRIC Hx Psychophysiologic Disorder: No - SURGICAL HISTORY Other/Comment: colostomy bag - ANESTHESIA Hx Anesthesia Reactions: No Hx Malignant Hyperthermia: No Meds Allergies/Adverse Reactions: Allergies Allergy/AdvReac Type Severity Reaction Status Date / Time ceftriaxone [From Rocephin] AdvReac Mild BURNING AT Verified 08/20/17 18:07 IV SITE Cephalosporins AdvReac Mild BURNING AT Verified 08/20/17 18:07 IV SITE - Medications Medications: Current Medications Acetaminophen (Tylenol 325mg Tab) 650 mg PO Q6H PRN PRN Reason: Fever >100.4 F Last Admin: 08/21/17 05:39 Dose: 650 mg Ascorbic Acid (Vitamin C 500 Mg Tab) 500 mg PO DAILY [facility] Baclofen (Lioresal) 20 mg PO BID PRN PRN Reason: Pain, Mild (1-3) Last Admin: 08/21/17 05:47 Dose: 20 mg Diphenhydramine HCl (Benadryl) 50 mg PO Q8 PRN PRN Reason: Itching / Pruritus Gabapentin (Neurontin) 300 mg PO BID [facility] PRN Reason: Protocol Sodium Chloride (Sodium Chloride 0.9%) 1,000 mls @ 100 mls/hr IV .Q10H [facility] Last Admin: 08/20/17 23:10 Dose: 100 mls/hr Vancomycin HCl (Vancomycin 1gm) 1 gm in 250 mls @ 80 mls/hr IVPB Q12 [facility] PRN Reason: Protocol Last Admin: 08/21/17 01:31 Dose: 80 mls/hr Meropenem (Merrem Iv 1 Gm Premix) 50 mls @ 100 mls/hr IVPB Q8 [facility] PRN Reason: Protocol Ondansetron HCl (Zofran Inj) 4 mg IVP Q4H PRN PRN Reason: Nausea/Vomiting Pantoprazole Sodium (Protonix Ec Tab) 40 mg PO 0600 [facility] Last Admin: 08/21/17 05:39 Dose: 40 mg Warfarin Sodium (Coumadin) 6 mg PO 1800 [facility] PRN Reason: Protocol Physical Exam - Constitutional Appears: Chronically Ill - Head Exam Head Exam: NORMAL INSPECTION - ENT Exam ENT Exam: Mucous Membranes Moist - Neck Exam Neck exam: Negative for: Lymphadenopathy, Meningismus - Respiratory Exam Respiratory Exam: Decreased Breath Sounds - Cardiovascular Exam Cardiovascular Exam: +S1, +S2 - GI/Abdominal Exam GI & Abdominal Exam: Soft. absent: Tenderness Results - Vital Signs Recent Vital Signs: Last Vital Signs Temp 97.8 F 08/21/17 03:12 Pulse 100 H 08/21/17 03:12 Resp 20 08/21/17 03:12 BP 145/76 08/21/17 03:12 Pulse Ox 99 08/21/17 02:05 - Labs Result Diagrams: 08/21/17 07:15 08/21/17 07:15 Assessment & Plan - Assessment and Plan (Free Text) Plan: Assessment consider complicated UTI with chronic indwelling Haque catheter probable skin and skin structure infection around the ischial tuberosity area with decubitus ulcer history of sacral decubitus infection S/P debridement, grew Proteus S/P colostomy history of epidural abscess secondary to Strep pneumoniae with associated cord compression and lower extremity paralysis and neurogenic bladder S/P neurosurgery for abscess drainage and laminectomy history of partial small bowel obstruction significant smoking history alcohol abuse Plan started Vancomycin and Merrem pending urine cx and blood cx; follow up evaluation and recommendations of surgery regarding right ischial area will monitor clinically
--- NOTE | 2017-08-21 21:10 | CON ---
DATE: 08/21/2017 Atul Magana is admitted to the hospital with increasing infection of the left ischium. CAT scan is consistent with osteo. There is no current abscess that I can see or feel. We will plan local treatment. Consult ID and Orthopedics, might eventually need Plastic's coverage, but for now, we will treat with antibiotics, local care, but investigate and treat as an osteo. Trever Askew MD
[2017-08-22] MEDS: Sodium Chloride 0.9% 1,000 ML IV SCH (04:02)
[2017-08-22] MEDS: Pantoprazole 40 mg EC Tab PO SCH (05:58)
[2017-08-22] MEDS: Meropenem IV 1 gm in NS 50 ML IVPB SCH ×3 (05:58→21:13)
--- NOTE | 2017-08-22 07:25 | CP.PCM.PN ---
Subjective - Date & Time of Evaluation Date of Evaluation: 08/22/17 Time of Evaluation: 07:21 - Subjective Subjective: Surgery: Dr. Askew Pt seen and examined. No acute overnight events. States he feels well and doesn' t have any complaints at this time. Denies pain, N/V, F/C. Objective - Vital Signs/Intake and Output Vital Signs (last 24 hours): Temp Pulse Resp BP Pulse Ox 97.6 F 63 18 115/58 L 97 08/21/17 21:58 08/21/17 21:58 08/21/17 21:58 08/21/17 21:58 08/21/17 21:58 Intake and Output: 08/22/17 08/22/17 06:59 18:59 Intake Total 2220 Output Total 2450 Balance -230 - Medications Medications: Current Medications Acetaminophen (Tylenol 325mg Tab) 650 mg PO Q6H PRN PRN Reason: Fever >100.4 F Last Admin: 08/22/17 06:02 Dose: 650 mg Ascorbic Acid (Vitamin C 500 Mg Tab) 500 mg PO DAILY [facility] Last Admin: 08/21/17 10:44 Dose: 500 mg Baclofen (Lioresal) 20 mg PO BID PRN PRN Reason: Pain, Mild (1-3) Last Admin: 08/22/17 01:30 Dose: 20 mg Diphenhydramine HCl (Benadryl) 50 mg PO Q8 PRN PRN Reason: Itching / Pruritus Gabapentin (Neurontin) 300 mg PO BID [facility] PRN Reason: Protocol Last Admin: 08/21/17 17:48 Dose: 300 mg Sodium Chloride (Sodium Chloride 0.9%) 1,000 mls @ 100 mls/hr IV .Q10H [facility] Last Admin: 08/22/17 04:02 Dose: 100 mls/hr Vancomycin HCl (Vancomycin 1gm) 1 gm in 250 mls @ 80 mls/hr IVPB Q12 [facility] PRN Reason: Protocol Last Admin: 08/21/17 22:01 Dose: 80 mls/hr Meropenem (Merrem Iv 1 Gm Premix) 50 mls @ 100 mls/hr IVPB Q8 [facility] PRN Reason: Protocol Last Admin: 08/22/17 05:58 Dose: 100 mls/hr Ondansetron HCl (Zofran Inj) 4 mg IVP Q4H PRN PRN Reason: Nausea/Vomiting Pantoprazole Sodium (Protonix Ec Tab) 40 mg PO 0600 [facility] Last Admin: 08/22/17 05:58 Dose: 40 mg Warfarin Sodium (Coumadin) 6 mg PO 1800 [facility] PRN Reason: Protocol Last Admin: 08/21/17 17:48 Dose: 6 mg - Labs Labs: PT 20.1 SECONDS (9.4-12.5) H 08/21/17 07:15 INR 1.73 (0.93-1.08) H 08/21/17 07:15 APTT 32.3 Seconds (25.1-36.5) 08/21/17 07:15 - Constitutional Appears: Well, No Acute Distress - Head Exam Head Exam: ATRAUMATIC, NORMOCEPHALIC - ENT Exam ENT Exam: Mucous Membranes Moist - Respiratory Exam Respiratory Exam: NORMAL BREATHING PATTERN - Cardiovascular Exam Cardiovascular Exam: RRR - GI/Abdominal Exam GI & Abdominal Exam: Soft (ostomy in place with soft brown stool in bag ). absent: Distended, Guarding, Tenderness - Extremities Exam Additional comments: R ischium with decubitus, exudate noted in wound bed - Neurological Exam Neurological Exam: Alert, Awake, Oriented x3 - Skin Skin Exam: Dry, Warm Assessment and Plan - Assessment and Plan (Free Text) Assessment: 52M with R Ischial decubitus; r/o osteomyelitis Plan: - continue local wound care - plan for debridement on thursday - cont IV ABX - f/u ortho & ID recs - d/w Dr. Azar Badillo, PGY-3
[2017-08-22 07:59] LABS: BASO # 0.01 K/mm3 (0.0-2.0); BASO % 0.2 % (0.0-3.0); EOS # 0.1 (0.0-0.7); EOS % 2.6 % (1.5-5.0); GRAN # 3.84 (1.4-6.5); GRAN % 76.2 % (50.0-68.0); HEMOGLOBIN 11.5 g/dL (14.0-18.0); LYMPH # 0.7 (1.2-3.4); LYMPH % 14.3 % (22.0-35.0); MEAN CELL VOLUME 80.7 fl (80.0-105.0); MEAN CORPUSCULAR HEMOGLOBIN 26.1 pg (25.0-35.0); MEAN CORPUSCULAR HGB CONC 32.3 g/dl (31.0-37.0); MEAN PLATELET VOLUME 10.3 fl (7.0-11.0); MONO # 0.3 (0.1-0.6); MONO % 6.7 % (1.0-6.0); RBC 4.41 10^6/uL (3.5-6.1)
[2017-08-22 08:06] LABS: INR 1.58 (0.93-1.08); PARTIAL THROMBOPLASTIN TIME 32.4 Seconds (25.1-36.5); PROTHROMBIN TIME 18.3 SECONDS (9.4-12.5)
[2017-08-22 08:24] LABS: ALT/SGPT 23 U/L (7-56); AST/SGOT 12 U/L (17-59)
[2017-08-22 08:25] LABS: ALBUMIN 3.6 g/dL (3.0-4.8); BLOOD UREA NITROGEN 9 mg/dL (7-21); CALCIUM 9.1 mg/dL (8.4-10.5); GFR AFRICAN-AMERICAN > 60; GFR NON-AFRICAN AMERICAN > 60
[2017-08-22] MEDS: Vancomycin 1gm in NS 250ml 1 GM/250 ML BAG IVPB SCH ×2 (09:05→23:25)
--- NOTE | 2017-08-22 09:17 | RAD ---
HISTORY: pre op COMPARISON: Comparison made with chest radiograph 05/29/2017 FINDINGS: LUNGS: Mild bibasilar atelectasis right greater than left. PLEURA: No significant pleural effusion identified, no pneumothorax apparent. CARDIOVASCULAR: Normal. OSSEOUS STRUCTURES: No significant abnormalities. VISUALIZED UPPER ABDOMEN: Normal. OTHER FINDINGS: None. IMPRESSION: Minor bibasilar atelectasis right greater than left.
--- NOTE | 2017-08-22 11:25 | CP.PCM.PN ---
<Mekhi Simental - Last Filed: 08/22/17 11:17> Subjective - Date & Time of Evaluation Date of Evaluation: 08/22/17 Time of Evaluation: 06:00 - Subjective Subjective: Patient seen and evaluated bedside. No acute issues overnight. Patient states he feels okay, no current complaints in the hypogastric area. Patient denies chest pain, SOB, abdominal pain, fever, chills, or any other complaints at this time. Objective - Vital Signs/Intake and Output Vital Signs (last 24 hours): Temp Pulse Resp BP Pulse Ox 97.9 F 68 20 133/85 100 08/22/17 06:00 08/22/17 06:00 08/22/17 06:00 08/22/17 06:00 08/22/17 06:00 Intake and Output: 08/22/17 08/22/17 06:59 18:59 Intake Total 2220 Output Total 2450 Balance -230 - Medications Medications: Current Medications Acetaminophen (Tylenol 325mg Tab) 650 mg PO Q6H PRN PRN Reason: Fever >100.4 F Last Admin: 08/22/17 06:02 Dose: 650 mg Ascorbic Acid (Vitamin C 500 Mg Tab) 500 mg PO DAILY [facility] Last Admin: 08/22/17 09:05 Dose: 500 mg Baclofen (Lioresal) 20 mg PO BID PRN PRN Reason: Pain, Mild (1-3) Last Admin: 08/22/17 01:30 Dose: 20 mg Diphenhydramine HCl (Benadryl) 50 mg PO Q8 PRN PRN Reason: Itching / Pruritus Gabapentin (Neurontin) 300 mg PO BID [facility] PRN Reason: Protocol Last Admin: 08/22/17 09:05 Dose: 300 mg Sodium Chloride (Sodium Chloride 0.9%) 1,000 mls @ 100 mls/hr IV .Q10H [facility] Last Admin: 08/22/17 04:02 Dose: 100 mls/hr Vancomycin HCl (Vancomycin 1gm) 1 gm in 250 mls @ 80 mls/hr IVPB Q12 [facility] PRN Reason: Protocol Last Admin: 08/22/17 09:05 Dose: 80 mls/hr Meropenem (Merrem Iv 1 Gm Premix) 50 mls @ 100 mls/hr IVPB Q8 [facility] PRN Reason: Protocol Last Admin: 08/22/17 05:58 Dose: 100 mls/hr Ondansetron HCl (Zofran Inj) 4 mg IVP Q4H PRN PRN Reason: Nausea/Vomiting Pantoprazole Sodium (Protonix Ec Tab) 40 mg PO 0600 [facility] Last Admin: 08/22/17 05:58 Dose: 40 mg Warfarin Sodium (Coumadin) 6 mg PO 1800 [facility] PRN Reason: Protocol Last Admin: 08/21/17 17:48 Dose: 6 mg - Labs Labs: 08/22/17 07:30 08/22/17 07:30 PT 18.3 SECONDS (9.4-12.5) H 08/22/17 07:30 INR 1.58 (0.93-1.08) H 08/22/17 07:30 APTT 32.4 Seconds (25.1-36.5) 08/22/17 07:30 - Constitutional Appears: Non-toxic, No Acute Distress - Head Exam Head Exam: ATRAUMATIC, NORMAL INSPECTION, NORMOCEPHALIC - Eye Exam Eye Exam: EOMI, Normal appearance - ENT Exam ENT Exam: Mucous Membranes Moist - Respiratory Exam Respiratory Exam: Clear to Ausculation Bilateral, NORMAL BREATHING PATTERN - Cardiovascular Exam Cardiovascular Exam: REGULAR RHYTHM, +S1, +S2 - GI/Abdominal Exam GI & Abdominal Exam: Soft. 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 Plan: 1. Catheter Associated UTI -CT Abdomen/Pelvis showing no signs of pyelonephritis or inflammatory changes of the urinary tract -UA showing positive nitrates, moderate LE, 25-30 WBC's and few bacteria -Afebrile and without tachycardia, tachypnea or leukocytosis -Haque in place -Urine culture showing proteus -meropenem and vancomycin -Benadryl PRN for itching/red man syndrome -Tylenol PRN for fever -Zofran PRN for N/V -ID consulted, follow recs -Urology consulted, ricardo Iqbal recs -echo pending 2. Stage 4 Sacral Decubitus Ulcer of Right Ischial Tuberosity -CT Abdomen/Pelvis showed new area of tissue loss or ulceration postero- inferior to right ischial tuberosity with area of hypodense soft tissue swelling /fluid measuring 3.8x2.2cm suspicious for abscess -Wound culture pending -vancomycin and meropenem -Surgery and Wound Care Nursing consulted, all recommendations appreciated -ESR : 70 -possible debrediment thursday per surgery 3. History of DVT -Continue home Coumadin -Daily INR GI Prophylaxis: Protonix DVT Prophylaxis: Coumadin Diet: Regular <Miky Hou - Last Filed: 08/22/17 11:51> Objective - Vital Signs/Intake and Output Vital Signs (last 24 hours): Temp Pulse Resp BP Pulse Ox 97.9 F 68 20 133/85 100 08/22/17 06:00 08/22/17 06:00 08/22/17 06:00 08/22/17 06:00 08/22/17 06:00 Intake and Output: 08/22/17 08/22/17 06:59 18:59 Intake Total 2220 Output Total 2450 Balance -230 - Medications Medications: Current Medications Acetaminophen (Tylenol 325mg Tab) 650 mg PO Q6H PRN PRN Reason: Fever >100.4 F Last Admin: 08/22/17 06:02 Dose: 650 mg Ascorbic Acid (Vitamin C 500 Mg Tab) 500 mg PO DAILY [facility] Last Admin: 08/22/17 09:05 Dose: 500 mg Baclofen (Lioresal) 20 mg PO BID PRN PRN Reason: Pain, Mild (1-3) Last Admin: 08/22/17 01:30 Dose: 20 mg Diphenhydramine HCl (Benadryl) 50 mg PO Q8 PRN PRN Reason: Itching / Pruritus Gabapentin (Neurontin) 300 mg PO BID [facility] PRN Reason: Protocol Last Admin: 08/22/17 09:05 Dose: 300 mg Sodium Chloride (Sodium Chloride 0.9%) 1,000 mls @ 100 mls/hr IV .Q10H [facility] Last Admin: 08/22/17 04:02 Dose: 100 mls/hr Vancomycin HCl (Vancomycin 1gm) 1 gm in 250 mls @ 80 mls/hr IVPB Q12 [facility] PRN Reason: Protocol Last Admin: 08/22/17 09:05 Dose: 80 mls/hr Meropenem (Merrem Iv 1 Gm Premix) 50 mls @ 100 mls/hr IVPB Q8 [facility] PRN Reason: Protocol Last Admin: 08/22/17 05:58 Dose: 100 mls/hr Ondansetron HCl (Zofran Inj) 4 mg IVP Q4H PRN PRN Reason: Nausea/Vomiting Pantoprazole Sodium (Protonix Ec Tab) 40 mg PO 0600 [facility] Last Admin: 08/22/17 05:58 Dose: 40 mg Warfarin Sodium (Coumadin) 6 mg PO 1800 [facility] PRN Reason: Protocol Last Admin: 08/21/17 17:48 Dose: 6 mg - Labs Labs: 08/22/17 07:30 08/22/17 07:30 PT 18.3 SECONDS (9.4-12.5) H 08/22/17 07:30 INR 1.58 (0.93-1.08) H 08/22/17 07:30 APTT 32.4 Seconds (25.1-36.5) 08/22/17 07:30 Attending/Attestation - Attestation I have personally seen and examined this patient.: Yes I have fully participated in the care of the patient.: Yes I have reviewed all pertinent clinical information, including history, physical exam and plan: Yes Notes (Text): 08/22/17 11:48 52 year old male with past medical history of 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 Ucx is growing proteus mirabilis. Continue with iv antibiotics. ID is following. Urology evaluation was requested. CT abd/pelvis also showed new area of tissue loss or ulceration postero- inferior to the right ischial tuberosity with area of hypodense soft tissue swelling / fluid measuring 3.8 x 2.2 cm suspicious for abscess. Continue with antibiotics as above. Surgery is following and requested orthopedics evaluation. Plan is for possible debridement on Thursday. Patient is on coumadin for DVT. Miky Hou MD Hospitalist.
--- NOTE | 2017-08-22 12:44 | CARD ---
APPROVED REPORT EKG Measurement Heart [id number] <Conclusion> Normal sinus rhythm with sinus arrhythmia ST & T wave abnormality, consider anterior ischemia Abnormal ECG
[2017-08-22] MEDS: Enoxaparin 30 mg Syringe SC SCH ×2 (14:27→23:25)
--- NOTE | 2017-08-22 20:58 | PN ---
DATE: 08/22/2017 SUBJECTIVE: Patient is seen earlier this morning, in no acute distress. He is wake and alert, doing well. PHYSICAL EXAMINATION: VITAL SIGNS: Temperature is 98, blood pressure is 112/60, respiratory rate of 20, heart rate of 63. HEENT: Unremarkable. NECK: Supple. LUNGS: Have decreased breath sounds. HEART: Normal S1, S2. ABDOMEN: Soft, nontender. LABORATORY DATA: Reveals a white count of 5, hemoglobin 11. Sed rate of 70. Chemistries reveals a BUN of 9, creatinine of 0.5 and C-reactive protein is 47. Urinalysis is noted and microbiology reveals the blood cultures are positive for gram-positive cocci. The buttocks cultures, no growth and the urine culture has Proteus mirabilis and that is relatively sensitive organism. After repeat blood cultures today, patient is currently on vancomycin and meropenem. ASSESSMENT AND PLAN: A 52-year-old male with gram-positive cocci bacteremia and Proteus mirabilis urinary tract infection. Currently, on vancomycin and meropenem. Waiting for identification of the gram-positive cocci. We are also awaiting for an echo results and repeat blood culture results and patient with sepsis. Initially, heart rate of 100, respiratory rate 22 with sepsis with Proteus in the urine as the source and gram-positive cocci. We will follow closely with you. We will check on the echocardiogram and the identification of gram-positive cocci. Colt Coronel MD
[2017-08-23] MEDS: Meropenem IV 1 gm in NS 50 ML IVPB SCH ×3 (06:09→21:07)
[2017-08-23 07:50] LABS: BASO # 0.01 K/mm3 (0.0-2.0); BASO % 0.3 % (0.0-3.0); EOS # 0.1 (0.0-0.7); EOS % 2.5 % (1.5-5.0); GRAN # 2.28 (1.4-6.5); GRAN % 62.4 % (50.0-68.0); HEMOGLOBIN 12.2 g/dL (14.0-18.0); MEAN CORPUSCULAR HEMOGLOBIN 25.5 pg (25.0-35.0); MEAN CORPUSCULAR HGB CONC 31.5 g/dl (31.0-37.0); MEAN PLATELET VOLUME 11.6 fl (7.0-11.0); MONO # 0.3 (0.1-0.6); MONO % 8.8 % (1.0-6.0); RBC 4.78 10^6/uL (3.5-6.1); RED CELL DISTRIBUTION WIDTH 15.8 % (11.5-14.5); WHITE BLOOD COUNT 3.7 10^3/ul (4.5-11.0)
[2017-08-23 08:00] LABS: INR 1.48 (0.93-1.08); PARTIAL THROMBOPLASTIN TIME 32.2 Seconds (25.1-36.5); PROTHROMBIN TIME 17.2 SECONDS (9.4-12.5)
[2017-08-23 08:09] LABS: ALB/GLOB RATIO 1.1 (1.1-1.8); ALBUMIN 3.7 g/dL (3.0-4.8); ALT/SGPT 20 U/L (7-56); AST/SGOT 14 U/L (17-59); BLOOD UREA NITROGEN 12 mg/dL (7-21); CALCIUM 9.1 mg/dL (8.4-10.5); GFR AFRICAN-AMERICAN > 60; GFR NON-AFRICAN AMERICAN > 60
--- NOTE | 2017-08-23 08:20 | CP.PCM.PN ---
Subjective - Date & Time of Evaluation Date of Evaluation: 08/23/17 Time of Evaluation: 07:10 - Subjective Subjective: Surgery Progress note. Dr. Askew Pt seen and examined at bedside. No acute events overnight. Patient denies any F /C. No CP/SOB. No N/V/D. No abd pain. No new complaints. Objective - Vital Signs/Intake and Output Vital Signs (last 24 hours): Temp Pulse Resp BP Pulse Ox 98.1 F 61 18 125/84 97 08/23/17 06:00 08/23/17 06:00 08/23/17 06:00 08/23/17 06:00 08/23/17 06:00 Intake and Output: 08/23/17 08/23/17 06:59 18:59 Intake Total 660 Output Total 1600 Balance -940 - Medications Medications: Current Medications Acetaminophen (Tylenol 325mg Tab) 650 mg PO Q6H PRN PRN Reason: Fever >100.4 F Last Admin: 08/23/17 02:51 Dose: 650 mg Ascorbic Acid (Vitamin C 500 Mg Tab) 500 mg PO DAILY [facility] Last Admin: 08/22/17 09:05 Dose: 500 mg Baclofen (Lioresal) 20 mg PO BID PRN PRN Reason: Pain, Mild (1-3) Last Admin: 08/22/17 17:24 Dose: 20 mg Diphenhydramine HCl (Benadryl) 50 mg PO Q8 PRN PRN Reason: Itching / Pruritus Enoxaparin Sodium (Lovenox) 30 mg SC Q12H [facility] PRN Reason: Protocol Stop: 08/24/17 12:00 Last Admin: 08/22/17 23:25 Dose: 30 mg Gabapentin (Neurontin) 300 mg PO BID [facility] PRN Reason: Protocol Last Admin: 08/22/17 17:24 Dose: 300 mg Vancomycin HCl (Vancomycin 1gm) 1 gm in 250 mls @ 80 mls/hr IVPB Q12 [facility] PRN Reason: Protocol Last Admin: 08/22/17 23:25 Dose: 80 mls/hr Meropenem (Merrem Iv 1 Gm Premix) 50 mls @ 100 mls/hr IVPB Q8 [facility] PRN Reason: Protocol Last Admin: 08/23/17 06:09 Dose: 100 mls/hr Ondansetron HCl (Zofran Inj) 4 mg IVP Q4H PRN PRN Reason: Nausea/Vomiting Pantoprazole Sodium (Protonix Ec Tab) 40 mg PO 0600 [facility] Last Admin: 08/22/17 05:58 Dose: 40 mg Warfarin Sodium (Coumadin) 6 mg PO 1800 [facility] PRN Reason: Protocol Last Admin: 08/21/17 17:48 Dose: 6 mg - Labs Labs: 08/23/17 07:00 08/23/17 07:00 PT 17.2 SECONDS (9.4-12.5) H 08/23/17 07:00 INR 1.48 (0.93-1.08) H 08/23/17 07:00 APTT 32.2 Seconds (25.1-36.5) 08/23/17 07:00 - Constitutional Appears: Well, Non-toxic, No Acute Distress - Head Exam Head Exam: ATRAUMATIC, NORMAL INSPECTION, NORMOCEPHALIC - Eye Exam Eye Exam: EOMI, Normal appearance - ENT Exam ENT Exam: Mucous Membranes Moist - Respiratory Exam Respiratory Exam: NORMAL BREATHING PATTERN. absent: Accessory Muscle Use, Respiratory Distress - Cardiovascular Exam Cardiovascular Exam: RRR. absent: JVD - GI/Abdominal Exam GI & Abdominal Exam: Soft. absent: Distended, Firm, Guarding, Rigid, Tenderness , Rebound Additional comments: ostomy device in place - Back Exam Additional comments: right ischial wound dressing in place, clean, dry and intact - Neurological Exam Neurological Exam: Alert, Awake, Oriented x3 Assessment and Plan - Assessment and Plan (Free Text) Assessment: 52yo M with R Ischial decubitu - Blood Cxs: Gram Positive Cocci - No leukocytosis, afebrile. Plan: - local wound care as needed - To OR, 08/25. NPO past mn 08/24 - cont IV ABX as per ID - Air mattress, Q2 turns/positioning - switched to lovenox q12 in plans for OR. Hold Coumadin for now. Further recs as per Dr. Azar Cash PGY1 surgery pager: [phone]
[2017-08-23] MEDS: Vancomycin 1gm in NS 250ml 1 GM/250 ML BAG IVPB SCH ×2 (09:01→22:05)
[2017-08-23] MEDS: Pantoprazole 40 mg EC Tab PO SCH (09:06)
--- NOTE | 2017-08-23 10:01 | CARD ---
APPROVED REPORT EXAM: Two-dimensional and M-mode echocardiogram with Doppler and color Doppler. INDICATION 2D DIMENSIONS IVSd1.0 (0.7-1.1cm)LVDd5.3 (3.9-5.9cm) PWd1.0 (0.7-1.1cm)LVDs3.9 (2.5-4.0cm) FS (%) 27.0 %LVEF (%)52.2 (>50%) M-Mode DIMENSIONS Aortic Root4.00 (2.2-3.7cm)Aortic Cusp Exc.2.30 (1.5-2.0cm) Aortic Valve AoV Peak Tgnmmfie714.0cm/Loree Peak GR.11mmHg Mitral Valve MV E Lkcoguam61.2cm/sMV E Peak Gr.114mmHgMV A Bmbwzajf53.5cm/s E/A ratio1.5 TDI Lateral E' Peak V13.10cm/sMedial E' Peak V8.36cm/sE/Lateral E'5.5 E/Medial E'8.6 Tricuspid Valve TR Peak [id number]/sRAP [id number] Peak Gr.12mmHg [id number] LEFT VENTRICLE The left ventricle is normal size. There is normal left ventricular wall thickness. The left ventricular function is normal.EF-55% There is normal LV segmental wall motion. The left ventricular diastolic function is normal. No left ventricle thrombus noted on this study. There is no ventricular septal defect visualized. There is no left ventricular aneurysm. There is no mass noted in the left ventricle. RIGHT VENTRICLE The right ventricle is normal size. There is normal right ventricular wall thickness. The right ventricular systolic function is normal. ATRIA The left atrium is borderline dilated. The right atrium size is normal. The interatrial septum is intact with no evidence for an atrial septal defect. AORTIC VALVE The aortic valve is thickened but opens well. There is trace aortic regurgitation. There is no aortic valvular stenosis. There is no aortic valvular vegetation. MITRAL VALVE The mitral valve is thickened but opens well. Mitral regurgitation is mild to moderate. The mitral regurgitant jet is eccentrically directed. There is no mitral valve stenosis. The mitral valve leaflets are thickened and redundant without clear evidence of mitral valve prolapse. TRICUSPID VALVE The tricuspid valve leaflets are thickened , but open well. There is trace tricuspid regurgitation.RVSP-22 mm of Hg. There is no tricuspid valve stenosis. There is no tricuspid valve prolapse or vegetation. PULMONIC VALVE The pulmonary valve is normal in structure. GREAT VESSELS The aortic root is normal in size. The ascending aorta is normal in size. The pulmonary artery is normal. The IVC is normal in size and collapses >50% with inspiration. PERICARDIAL EFFUSION There is no pleural effusion. There is no pericardial effusion. <Conclusion> The left ventricle is normal size. There is normal left ventricular wall thickness. The left ventricular function is normal.EF-55% There is trace aortic regurgitation. Mitral regurgitation is mild to moderate. The mitral regurgitant jet is eccentrically directed. The mitral valve leaflets are thickened and redundant without clear evidence of mitral valve prolapse. There is trace tricuspid regurgitation.RVSP-22 mm of Hg. The IVC is normal in size and collapses >50% with inspiration. There is no pericardial effusion.
--- NOTE | 2017-08-23 11:27 | CP.PCM.PN ---
<Mekhi Simental - Last Filed: 08/23/17 11:19> Subjective - Date & Time of Evaluation Date of Evaluation: 08/23/17 Time of Evaluation: 06:00 - Subjective Subjective: Patient seen and evaluated bedside. No acute issues overnight. Patient states he feels well, understands plan for debridement on Thursday. Denies chest pain, SOB, fever, chills, or any other complaints at this time. Objective - Vital Signs/Intake and Output Vital Signs (last 24 hours): Temp Pulse Resp BP Pulse Ox 98.1 F 61 18 125/84 97 08/23/17 06:00 08/23/17 06:00 08/23/17 06:00 08/23/17 06:00 08/23/17 06:00 Intake and Output: 08/23/17 08/23/17 06:59 18:59 Intake Total 660 Output Total 1600 Balance -940 - Medications Medications: Current Medications Acetaminophen (Tylenol 325mg Tab) 650 mg PO Q6H PRN PRN Reason: Fever >100.4 F Last Admin: 08/23/17 02:51 Dose: 650 mg Ascorbic Acid (Vitamin C 500 Mg Tab) 500 mg PO DAILY [facility] Last Admin: 08/23/17 09:00 Dose: 500 mg Baclofen (Lioresal) 20 mg PO BID PRN PRN Reason: Pain, Mild (1-3) Last Admin: 08/22/17 17:24 Dose: 20 mg Diphenhydramine HCl (Benadryl) 50 mg PO Q8 PRN PRN Reason: Itching / Pruritus Enoxaparin Sodium (Lovenox) 30 mg SC Q12H [facility] PRN Reason: Protocol Stop: 08/24/17 12:00 Last Admin: 08/22/17 23:25 Dose: 30 mg Gabapentin (Neurontin) 300 mg PO BID [facility] PRN Reason: Protocol Last Admin: 08/23/17 09:00 Dose: 300 mg Vancomycin HCl (Vancomycin 1gm) 1 gm in 250 mls @ 80 mls/hr IVPB Q12 [facility] PRN Reason: Protocol Last Admin: 08/23/17 09:01 Dose: 80 mls/hr Meropenem (Merrem Iv 1 Gm Premix) 50 mls @ 100 mls/hr IVPB Q8 [facility] PRN Reason: Protocol Last Admin: 08/23/17 06:09 Dose: 100 mls/hr Ondansetron HCl (Zofran Inj) 4 mg IVP Q4H PRN PRN Reason: Nausea/Vomiting Pantoprazole Sodium (Protonix Ec Tab) 40 mg PO 0600 [facility] Last Admin: 08/23/17 09:06 Dose: 40 mg Warfarin Sodium (Coumadin) 6 mg PO 1800 [facility] PRN Reason: Protocol Last Admin: 08/21/17 17:48 Dose: 6 mg - Labs Labs: 08/23/17 07:00 08/23/17 07:00 PT 17.2 SECONDS (9.4-12.5) H 08/23/17 07:00 INR 1.48 (0.93-1.08) H 08/23/17 07:00 APTT 32.2 Seconds (25.1-36.5) 08/23/17 07:00 - Constitutional Appears: Non-toxic, No Acute Distress - Head Exam Head Exam: ATRAUMATIC, NORMAL INSPECTION, NORMOCEPHALIC - Eye Exam Eye Exam: EOMI, Normal appearance - ENT Exam ENT Exam: Mucous Membranes Moist - Respiratory Exam Respiratory Exam: Clear to Ausculation Bilateral, NORMAL BREATHING PATTERN - Cardiovascular Exam Cardiovascular Exam: REGULAR RHYTHM, +S1, +S2 - GI/Abdominal Exam Additional comments: ostomy in place - Extremities Exam Extremities Exam: absent: Pedal Edema, Tenderness Additional comments: parapledgic - Neurological Exam Neurological Exam: Alert, Awake, Oriented x3 Assessment and Plan - Assessment and Plan (Free Text) Assessment: 52 year old male with a past medical history significant for 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 Plan: 1. Catheter Associated UTI -CT Abdomen/Pelvis showing no signs of pyelonephritis or inflammatory changes of the urinary tract -UA showing positive nitrates, moderate LE, 25-30 WBC's and few bacteria -Afebrile and without tachycardia, tachypnea or leukocytosis -Haque in place -Urine culture showing proteus -meropenem and vancomycin -Benadryl PRN for itching/red man syndrome -Tylenol PRN for fever -Zofran PRN for N/V -ID consulted, follow recs -Urology consulted, ricardo Iqbal recs -echo does not show any vegetation 2. Stage 4 Sacral Decubitus Ulcer of Right Ischial Tuberosity -CT Abdomen/Pelvis showed new area of tissue loss or ulceration postero- inferior to right ischial tuberosity with area of hypodense soft tissue swelling /fluid measuring 3.8x2.2cm suspicious for abscess -Wound culture showing grram negative rods corynebacterium species -blood initially showing gram poisitve cocci, reear no growth yet -vancomycin and meropenem -Surgery and Wound Care Nursing consulted, all recommendations appreciated -ESR : 70 -possible debrediment thursday per surgery 3. History of DVT -home coumdain hold -lovenox 30 SC Q12 -Daily INR GI Prophylaxis: Protonix DVT Prophylaxis: lovenox 30 SC Q12 Diet: Regular <Miky Hou A - Last Filed: 08/23/17 11:33> Objective - Vital Signs/Intake and Output Vital Signs (last 24 hours): Temp Pulse Resp BP Pulse Ox 98.1 F 61 18 125/84 97 08/23/17 06:00 08/23/17 06:00 08/23/17 06:00 08/23/17 06:00 08/23/17 06:00 Intake and Output: 08/23/17 08/23/17 06:59 18:59 Intake Total 660 Output Total 1600 Balance -940 - Medications Medications: Current Medications Acetaminophen (Tylenol 325mg Tab) 650 mg PO Q6H PRN PRN Reason: Fever >100.4 F Last Admin: 08/23/17 02:51 Dose: 650 mg Ascorbic Acid (Vitamin C 500 Mg Tab) 500 mg PO DAILY [facility] Last Admin: 08/23/17 09:00 Dose: 500 mg Baclofen (Lioresal) 20 mg PO BID PRN PRN Reason: Pain, Mild (1-3) Last Admin: 08/22/17 17:24 Dose: 20 mg Diphenhydramine HCl (Benadryl) 50 mg PO Q8 PRN PRN Reason: Itching / Pruritus Enoxaparin Sodium (Lovenox) 30 mg SC Q12H [facility] PRN Reason: Protocol Stop: 08/24/17 12:00 Last Admin: 08/22/17 23:25 Dose: 30 mg Gabapentin (Neurontin) 300 mg PO BID [facility] PRN Reason: Protocol Last Admin: 08/23/17 09:00 Dose: 300 mg Vancomycin HCl (Vancomycin 1gm) 1 gm in 250 mls @ 80 mls/hr IVPB Q12 [facility] PRN Reason: Protocol Last Admin: 08/23/17 09:01 Dose: 80 mls/hr Meropenem (Merrem Iv 1 Gm Premix) 50 mls @ 100 mls/hr IVPB Q8 [facility] PRN Reason: Protocol Last Admin: 08/23/17 06:09 Dose: 100 mls/hr Ondansetron HCl (Zofran Inj) 4 mg IVP Q4H PRN PRN Reason: Nausea/Vomiting Pantoprazole Sodium (Protonix Ec Tab) 40 mg PO 0600 [facility] Last Admin: 08/23/17 09:06 Dose: 40 mg Warfarin Sodium (Coumadin) 6 mg PO 1800 [facility] PRN Reason: Protocol Last Admin: 08/21/17 17:48 Dose: 6 mg - Labs Labs: 08/23/17 07:00 08/23/17 07:00 PT 17.2 SECONDS (9.4-12.5) H 08/23/17 07:00 INR 1.48 (0.93-1.08) H 08/23/17 07:00 APTT 32.2 Seconds (25.1-36.5) 08/23/17 07:00 Attending/Attestation - Attestation I have personally seen and examined this patient.: Yes I have fully participated in the care of the patient.: Yes I have reviewed all pertinent clinical information, including history, physical exam and plan: Yes Notes (Text): 08/23/17 11:29 52 year old male with past medical history of 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 Ucx is growing proteus mirabilis. Blood culture x 2 also positive for gram positive cocci. Repeat blood cultures are ordered. Echocardiogram was negative for vegetations. Continue with iv antibiotics as per ID. Urology evaluation was requested. CT abd/pelvis also showed new area of tissue loss or ulceration postero- inferior to the right ischial tuberosity with area of hypodense soft tissue swelling / fluid measuring 3.8 x 2.2 cm suspicious for abscess. Wound culture is growing gram negative doug and corynbacterium species. Continue with antibiotics as above. Surgery is following and requested orthopedics evaluation. I did discuss with ortho yesterday to review. Plan is for possible debridement on Thursday. Patient was on coumadin for DVT which is on hold and switched to bid lovenox in anticipation of surgery on Thursday. Miky Hou MD Hospitalist.
[2017-08-23] MEDS: Enoxaparin 30 mg Syringe SC SCH (12:29)
--- NOTE | 2017-08-23 13:34 | PN ---
DATE: 08/23/2017 SUBJECTIVE: The patient is in bed, in no acute distress, nontoxic. No fevers and chills. PHYSICAL EXAMINATION: VITAL SIGNS: Temperature of 98, blood pressure is 120/80, respiratory rate of 20, heart rate of 64. HEENT: Examination of HEENT is unremarkable. NECK: Supple. LUNGS: Have decreased breath sounds. ABDOMEN: Soft, nontender. LABORATORY DATA: Laboratory examination reveals the patient's white count of 3.7, hemoglobin of 12, platelets of 155. Chemistries reveals a BUN of 12, creatinine of 0.5. Urinalysis is noted and microbiology reveals the blood cultures are positive for gram-positive cocci. The buttocks culture is gram-negative doug and Corynebacterium. The urine culture is Proteus mirabilis, which is pansensitive. Review of orders reveals the repeat blood cultures are ordered. The patient is on meropenem and vancomycin. ASSESSMENT AND PLAN: A 52-year-old male with a gram-positive cocci bacteremia, sensitive Proteus mirabilis urinary tract infection, on vancomycin on meropenem. I waiting for further identification and sensitivity in this patient who admitted with sepsis with Proteus in the urine as the source and gram-positive cocci bacteremia with the sacral decubitus cultures reviewed. The patient who still has the sacral decubitus, history of epidural abscess with Streptococcus pneumoniae, cord compression, lower extremity paralysis, neurogenic bladder. Neurosurgery for abscess of the spine and drainage and laminectomy, complicated by partial small bowel obstruction. We will follow closely with you. Colt Coronel MD
[2017-08-23] MEDS ORDERED: Enoxaparin 30 mg Syringe SC SCH (14:54)
[2017-08-23] MEDS ORDERED: Enoxaparin 100 mg Syringe SC ONE ×2 (15:00)
[2017-08-23] MEDS: Enoxaparin 100 mg Syringe SC SCH (21:07)
[2017-08-23] MEDS ORDERED: Enoxaparin 100 mg Syringe SC SCH (22:00)
[2017-08-24] MEDS: Meropenem IV 1 gm in NS 50 ML IVPB SCH ×3 (05:07→21:02)
[2017-08-24] MEDS: Pantoprazole 40 mg EC Tab PO SCH (05:07)
[2017-08-24 07:05] LABS: BASO # 0.02 K/mm3 (0.0-2.0); BASO % 0.5 % (0.0-3.0); EOS # 0.1 (0.0-0.7); EOS % 2.5 % (1.5-5.0); GRAN # 2.76 (1.4-6.5); GRAN % 62.8 % (50.0-68.0); HEMOGLOBIN 12.4 g/dL (14.0-18.0); LYMPH # 1.1 (1.2-3.4); LYMPH % 25.1 % (22.0-35.0); MEAN CELL VOLUME 81.2 fl (80.0-105.0); MEAN CORPUSCULAR HEMOGLOBIN 25.9 pg (25.0-35.0); MEAN CORPUSCULAR HGB CONC 31.9 g/dl (31.0-37.0); MEAN PLATELET VOLUME 11.3 fl (7.0-11.0); MONO # 0.4 (0.1-0.6); MONO % 9.1 % (1.0-6.0); RBC 4.79 10^6/uL (3.5-6.1); RED CELL DISTRIBUTION WIDTH 15.7 % (11.5-14.5); WHITE BLOOD COUNT 4.4 10^3/ul (4.5-11.0)
[2017-08-24 07:20] LABS: INR 1.21 (0.93-1.08); PARTIAL THROMBOPLASTIN TIME 33.2 Seconds (25.1-36.5)
[2017-08-24 07:40] LABS: ALBUMIN 3.8 g/dL (3.0-4.8); ALT/SGPT 25 U/L (7-56); AST/SGOT 19 U/L (17-59); BLOOD UREA NITROGEN 15 mg/dL (7-21); CALCIUM 9.4 mg/dL (8.4-10.5); GFR AFRICAN-AMERICAN > 60; GFR NON-AFRICAN AMERICAN > 60
--- NOTE | 2017-08-24 07:43 | CP.PCM.PN ---
Subjective - Date & Time of Evaluation Date of Evaluation: 08/24/17 Time of Evaluation: 06:55 - Subjective Subjective: General Surgery Note for Dr. Askew Patient seen and examined at bedside. No acute events overnight. Patient dressing wa changed this morning. He has no complaints. Plan for OR tomorrow. Objective - Vital Signs/Intake and Output Vital Signs (last 24 hours): Temp Pulse Resp BP Pulse Ox 98.1 F 54 L 20 110/62 98 08/23/17 22:00 08/23/17 22:00 08/23/17 22:00 08/23/17 22:00 08/23/17 22:00 Intake and Output: 08/24/17 08/24/17 06:59 18:59 Intake Total 660 Output Total 1000 Balance -340 - Medications Medications: Current Medications Acetaminophen (Tylenol 325mg Tab) 650 mg PO Q6H PRN PRN Reason: Fever >100.4 F Last Admin: 08/23/17 22:08 Dose: 650 mg Ascorbic Acid (Vitamin C 500 Mg Tab) 500 mg PO DAILY [facility] Last Admin: 08/23/17 09:00 Dose: 500 mg Baclofen (Lioresal) 20 mg PO BID PRN PRN Reason: Pain, Mild (1-3) Last Admin: 08/22/17 17:24 Dose: 20 mg Diphenhydramine HCl (Benadryl) 50 mg PO Q8 PRN PRN Reason: Itching / Pruritus Enoxaparin Sodium (Lovenox) 100 mg SC Q12 [facility] Stop: 08/24/17 12:00 Last Admin: 08/23/17 21:07 Dose: 100 mg Gabapentin (Neurontin) 300 mg PO BID [facility] PRN Reason: Protocol Last Admin: 08/23/17 17:15 Dose: 300 mg Vancomycin HCl (Vancomycin 1gm) 1 gm in 250 mls @ 80 mls/hr IVPB Q12 [facility] PRN Reason: Protocol Last Admin: 08/23/17 22:05 Dose: 80 mls/hr Meropenem (Merrem Iv 1 Gm Premix) 50 mls @ 100 mls/hr IVPB Q8 [facility] PRN Reason: Protocol Last Admin: 08/24/17 05:07 Dose: 100 mls/hr Ondansetron HCl (Zofran Inj) 4 mg IVP Q4H PRN PRN Reason: Nausea/Vomiting Pantoprazole Sodium (Protonix Ec Tab) 40 mg PO 0600 [facility] Last Admin: 08/24/17 05:07 Dose: 40 mg Warfarin Sodium (Coumadin) 6 mg PO 1800 [facility] PRN Reason: Protocol Last Admin: 08/21/17 17:48 Dose: 6 mg - Labs Labs: 08/24/17 06:00 08/24/17 06:00 PT 14.0 SECONDS (9.4-12.5) H 08/24/17 06:00 INR 1.21 (0.93-1.08) H 08/24/17 06:00 APTT 33.2 Seconds (25.1-36.5) 08/24/17 06:00 - Additional Findings Additional findings: - Constitutional Appears: Well, Non-toxic, No Acute Distress - Head Exam Head Exam: ATRAUMATIC, NORMAL INSPECTION, NORMOCEPHALIC - Eye Exam Eye Exam: EOMI, Normal appearance - ENT Exam ENT Exam: Mucous Membranes Moist - Respiratory Exam Respiratory Exam: NORMAL BREATHING PATTERN. absent: Accessory Muscle Use, Respiratory Distress - Cardiovascular Exam Cardiovascular Exam: RRR. absent: JVD - GI/Abdominal Exam GI & Abdominal Exam: Soft. absent: Distended, Firm, Guarding, Rigid, Tenderness , Rebound Additional comments: colostomy wafer and bag in place - Back Exam Additional comments: right ischial wound dressing changed today - clean, dry and intact - Neurological Exam Neurological Exam: Alert, Awake, Oriented x3 Assessment and Plan - Assessment and Plan (Free Text) Assessment: 52 M with stage IV R Ischial decubitus ulcer - Blood Culture grew Gram Positive Cocci - No leukocytosis, afebrile. Plan: - Local wound care as needed - OR tomorrow 08/25 - NPO past mn - cont IV ABX as per ID - Air mattress, Q2 turns/positioning - switched to lovenox for OR. Hold Coumadin for now. Will bridge post operatively - Further recommendations as per Dr. Azar Smith PGY1
--- NOTE | 2017-08-24 10:46 | PN ---
DATE: 08/24/2017 SUBJECTIVE: The patient is in bed, in no acute distress, nontoxic. PHYSICAL EXAMINATION: VITAL SIGNS: Temperature is 98, blood pressure is 130/70, respiratory rate 16. HEENT: Examination of HEENT is unremarkable. NECK: Supple. LUNGS: Decreased breath sounds. HEART: Normal S1, S2. ABDOMINAL: Soft, nontender. LABORATORY DATA: Laboratory examination reveals the patient has pansensitive Proteus in the urine. The blood cultures have coag-negative staph. Repeat blood cultures are negative, no growth. The buttocks has Proteus mirabilis. Review of the orders reveals the patient to be on meropenem and vancomycin. ASSESSMENT AND PLAIN: A 52-year-old who has a coag-negative Staphylococcus bacteremia, most likely a contamination with no intravascular hardware. Admitted with Proteus mirabilis urinary tract infection with sepsis secondary to Proteus mirabilis urinary tract infections and infected sacrum, which also has Corynebacterium and Proteus. We will discontinue the vancomycin. We will be able to switch to p.o. antibiotics. progress note is reviewed. Colt Coronel MD
[2017-08-24] MEDS: Enoxaparin 100 mg Syringe SC SCH (10:57)
--- NOTE | 2017-08-24 11:09 | CP.PCM.PN ---
<Derek Keyes - Last Filed: 08/24/17 11:06> Subjective - Date & Time of Evaluation Date of Evaluation: 08/24/17 Time of Evaluation: 07:50 - Subjective Subjective: PGY1 Medicine Note for Dr. Piedra Patient seen and examined at bedside this morning. No acute events overnight. Patient is awake, resting comfortably in bed. He reports feeling well and knows that he is scheduled for debridement on Thursday. He has been through this multiple times in the past and he has no questions at this time. He is tolerating his diet. His pain has been well controlled and he has no other complatints at this time. Denies fevers, chills, nausea, vomiting, chest pain, shortness of breath, abdominal pain. Objective - Vital Signs/Intake and Output Vital Signs (last 24 hours): Temp Pulse Resp BP Pulse Ox 98.4 F 90 20 132/77 100 08/24/17 08:26 08/24/17 08:26 08/24/17 08:26 08/24/17 08:26 08/24/17 08:26 Intake and Output: 08/24/17 08/24/17 06:59 18:59 Intake Total 660 Output Total 1000 Balance -340 - Medications Medications: Current Medications Acetaminophen (Tylenol 325mg Tab) 650 mg PO Q6H PRN PRN Reason: Fever >100.4 F Last Admin: 08/23/17 22:08 Dose: 650 mg Ascorbic Acid (Vitamin C 500 Mg Tab) 500 mg PO DAILY [facility] Last Admin: 08/23/17 09:00 Dose: 500 mg Baclofen (Lioresal) 20 mg PO BID PRN PRN Reason: Pain, Mild (1-3) Last Admin: 08/22/17 17:24 Dose: 20 mg Diphenhydramine HCl (Benadryl) 50 mg PO Q8 PRN PRN Reason: Itching / Pruritus Enoxaparin Sodium (Lovenox) 100 mg SC Q12 [facility] Stop: 08/24/17 12:00 Last Admin: 08/23/17 21:07 Dose: 100 mg Gabapentin (Neurontin) 300 mg PO BID [facility] PRN Reason: Protocol Last Admin: 08/23/17 17:15 Dose: 300 mg Meropenem (Merrem Iv 1 Gm Premix) 50 mls @ 100 mls/hr IVPB Q8 [facility] PRN Reason: Protocol Last Admin: 08/24/17 05:07 Dose: 100 mls/hr Ondansetron HCl (Zofran Inj) 4 mg IVP Q4H PRN PRN Reason: Nausea/Vomiting Pantoprazole Sodium (Protonix Ec Tab) 40 mg PO 0600 [facility] Last Admin: 08/24/17 05:07 Dose: 40 mg Warfarin Sodium (Coumadin) 6 mg PO 1800 [facility] PRN Reason: Protocol Last Admin: 08/21/17 17:48 Dose: 6 mg - Labs Labs: 08/24/17 06:00 08/24/17 06:00 PT 14.0 SECONDS (9.4-12.5) H 08/24/17 06:00 INR 1.21 (0.93-1.08) H 08/24/17 06:00 APTT 33.2 Seconds (25.1-36.5) 08/24/17 06:00 - Constitutional Appears: Non-toxic, No Acute Distress - Head Exam Head Exam: ATRAUMATIC, NORMOCEPHALIC - Eye Exam Eye Exam: Normal appearance - ENT Exam ENT Exam: Mucous Membranes Moist - Respiratory Exam Respiratory Exam: Clear to Ausculation Bilateral, NORMAL BREATHING PATTERN. absent: Rales, Rhonchi, Wheezes, Respiratory Distress - Cardiovascular Exam Cardiovascular Exam: REGULAR RHYTHM, +S1, +S2 - GI/Abdominal Exam GI & Abdominal Exam: Soft Additional comments: ostomy in place. brown fecal material in bag. 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 Plan: 1. Catheter Associated UTI -CT Abdomen/Pelvis showing no signs of pyelonephritis or inflammatory changes of the urinary tract -UA showing positive nitrates, moderate LE, 25-30 WBC's and few bacteria -Afebrile and without tachycardia, tachypnea or leukocytosis -Haque in place -Urine culture showing Proteus Mirabilis -meropenem 1gm (started on 08/21) -Vancomycin - discontinued -Benadryl PRN for itching/red man syndrome -Tylenol PRN for fever -Zofran PRN for N/V -ID consulted, follow recs -Urology consulted, Rasheed, ricardo recs -echo does not show any vegetation 2. Stage 4 Sacral Decubitus Ulcer of Right Ischial Tuberosity -CT Abdomen/Pelvis showed new area of tissue loss or ulceration postero- inferior to right ischial tuberosity with area of hypodense soft tissue swelling /fluid measuring 3.8x2.2cm suspicious for abscess -Wound culture (buttock) showing Proteus Mirabilis and corynebacterium species -blood initially showing Coagulase Neg Staph -ESR: 70 -meropenem 1gm (started on 08/21) -Vancomycin - discontinued -Surgery and Wound Care Nursing consulted, all recommendations appreciated * Scheduled for debridement on Friday 08/25 * NPO past midnight * Hold evening dose of Lovenox 3. History of DVT -home coumdain hold -lovenox 30 SC Q12 -Daily INR Prophylactic Care GI Prophylaxis: Protonix DVT Prophylaxis: lovenox 30 SC Q12 Diet: Regular Case discussed with Dr. Dorothea Reed Wali PGY1 <Tobin Piedra - Last Filed: 08/24/17 14:44> Objective - Vital Signs/Intake and Output Vital Signs (last 24 hours): Temp Pulse Resp BP Pulse Ox 97.9 F 68 20 119/83 98 08/24/17 14:34 08/24/17 14:34 08/24/17 14:34 08/24/17 14:34 08/24/17 14:34 Intake and Output: 08/24/17 08/24/17 06:59 18:59 Intake Total 660 Output Total 1000 Balance -340 - Medications Medications: Current Medications Acetaminophen (Tylenol 325mg Tab) 650 mg PO Q6H PRN PRN Reason: Fever >100.4 F Last Admin: 08/23/17 22:08 Dose: 650 mg Ascorbic Acid (Vitamin C 500 Mg Tab) 500 mg PO DAILY [facility] Last Admin: 08/24/17 10:58 Dose: 500 mg Baclofen (Lioresal) 20 mg PO BID PRN PRN Reason: Pain, Mild (1-3) Last Admin: 08/22/17 17:24 Dose: 20 mg Diphenhydramine HCl (Benadryl) 50 mg PO Q8 PRN PRN Reason: Itching / Pruritus Gabapentin (Neurontin) 300 mg PO BID [facility] PRN Reason: Protocol Last Admin: 08/24/17 11:01 Dose: 300 mg Meropenem (Merrem Iv 1 Gm Premix) 50 mls @ 100 mls/hr IVPB Q8 [facility] PRN Reason: Protocol Last Admin: 08/24/17 13:54 Dose: 100 mls/hr Ondansetron HCl (Zofran Inj) 4 mg IVP Q4H PRN PRN Reason: Nausea/Vomiting Pantoprazole Sodium (Protonix Ec Tab) 40 mg PO 0600 [facility] Last Admin: 08/24/17 05:07 Dose: 40 mg - Labs Labs: 08/24/17 06:00 08/24/17 06:00 PT 14.0 SECONDS (9.4-12.5) H 08/24/17 06:00 INR 1.21 (0.93-1.08) H 08/24/17 06:00 APTT 33.2 Seconds (25.1-36.5) 08/24/17 06:00 Attending/Attestation - Attestation I have personally seen and examined this patient.: Yes I have fully participated in the care of the patient.: Yes I have reviewed all pertinent clinical information, including history, physical exam and plan: Yes Notes (Text): 08/24/17 14:39 Attending note; Patient seen and examined with resident. 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 Proteus UTI; currently on meropenem . Initial Blood culture grew coagulase-negative staph. Repeat blood culture is negative since . Echocardiogram was negative for vegetations. Sacral decubitus; wound culture grew Corynebacterium and Proteus. Debridement planned for tomorrow. Case discussed with surgery in detail. CT abd/pelvis also showed new area of tissue loss or ulceration postero- inferior to the right ischial tuberosity with area of hypodense soft tissue swelling / fluid measuring 3.8 x 2.2 cm suspicious for abscess. Patient was on coumadin for DVT which is on hold and last dose of Lovenox given today. Nothing by mouth past midnight. Continue colostomy care. Upon discharge the patient will follow up with PMD Dr. Dominguez.
[2017-08-24] MEDS ORDERED: Enoxaparin 100 mg Syringe SC STA (14:32)
[2017-08-25] MEDS: Meropenem IV 1 gm in NS 50 ML IVPB SCH ×3 (05:09→21:12)
[2017-08-25] MEDS: Pantoprazole 40 mg EC Tab PO SCH (05:09)
[2017-08-25 07:16] LABS: BASO # 0.01 K/mm3 (0.0-2.0); BASO % 0.3 % (0.0-3.0); EOS # 0.1 (0.0-0.7); EOS % 2.5 % (1.5-5.0); GRAN # 2.32 (1.4-6.5); GRAN % 58.3 % (50.0-68.0); HEMOGLOBIN 11.8 g/dL (14.0-18.0); LYMPH # 1.1 (1.2-3.4); LYMPH % 27.1 % (22.0-35.0); MEAN CELL VOLUME 81.6 fl (80.0-105.0); MEAN CORPUSCULAR HEMOGLOBIN 25.9 pg (25.0-35.0); MEAN CORPUSCULAR HGB CONC 31.7 g/dl (31.0-37.0); MEAN PLATELET VOLUME 10.8 fl (7.0-11.0); MONO # 0.5 (0.1-0.6); MONO % 11.8 % (1.0-6.0); RBC 4.56 10^6/uL (3.5-6.1); RED CELL DISTRIBUTION WIDTH 15.9 % (11.5-14.5)
[2017-08-25 07:23] LABS: ALBUMIN 3.8 g/dL (3.0-4.8); ALT/SGPT 27 U/L (7-56); AST/SGOT 21 U/L (17-59); BLOOD UREA NITROGEN 17 mg/dL (7-21); CALCIUM 9.3 mg/dL (8.4-10.5); GFR AFRICAN-AMERICAN > 60; GFR NON-AFRICAN AMERICAN > 60
[2017-08-25] MEDS ORDERED: Propofol 10 mg/ml Inj (20 ML) ONE (07:29)
[2017-08-25] MEDS ORDERED: Midazolam 2 MG/2 ML VIAL ONE (07:29)
[2017-08-25 07:30] LABS: INR 1.09 (0.93-1.08); PROTHROMBIN TIME 12.5 SECONDS (9.4-12.5)
[2017-08-25] MEDS ORDERED: ePHEDrine 50 mg/ml Inj ONE (08:13)
--- NOTE | 2017-08-25 08:30 | PCM.SURG1 ---
Surgeon's Initial Post Op Note - Surgeon's Notes Surgeon: Dr. Askew Painting Machine Operator: TAVON CashY1. Alejandrina PGY1 Type of Anesthesia: IV Sedation Anesthesia Administered By: Dr. Tao Pre-Operative Diagnosis: Right ischial decubitus ulcer Operative Findings: See operative report. Clean wound edges, no abscess, thin layer of fascia overlying bone Post-Operative Diagnosis: Right ischial decubitus ulcer Operation Performed: Interval debridement of right ischial decubitus ulcer Specimen/Specimens Removed: Wound culture Estimated Blood Loss: EBL {In ML}: 2 Blood Products Given: N/A Drains Used: No Drains Post-Op Condition: Good Date of Surgery/Procedure: 08/25/17 Time of Surgery/Procedure: 07:30
[2017-08-25] MEDS: Enoxaparin 100 mg Syringe SC SCH ×2 (11:25→21:11)
--- NOTE | 2017-08-25 14:44 | CP.PCM.PN ---
<Saumya Benitez - Last Filed: 08/25/17 14:44> Subjective - Date & Time of Evaluation Date of Evaluation: 08/25/17 Time of Evaluation: 10:00 - Subjective Subjective: IM progress note for Dr. Piedra-Saumya Benitez, PGY-1 Pt S & E at bedside at 0945 Pt is s/p Right ischial decubitus ulcer debridement this AM. No current complaints. Tolerated procedure well. Objective - Vital Signs/Intake and Output Vital Signs (last 24 hours): Temp Pulse Resp BP Pulse Ox 98.3 F 64 18 125/64 100 08/25/17 09:22 08/25/17 09:22 08/25/17 09:22 08/25/17 09:22 08/25/17 09:22 Intake and Output: 08/25/17 08/25/17 06:59 18:59 Intake Total 720 0 Output Total 1500 1300 Balance -780 -1300 - Medications Medications: Current Medications Acetaminophen (Tylenol 325mg Tab) 650 mg PO Q6H PRN PRN Reason: Fever >100.4 F Last Admin: 08/25/17 05:16 Dose: 650 mg Ascorbic Acid (Vitamin C 500 Mg Tab) 500 mg PO DAILY [facility] Last Admin: 08/25/17 11:25 Dose: 500 mg Baclofen (Lioresal) 20 mg PO BID PRN PRN Reason: Pain, Mild (1-3) Last Admin: 08/22/17 17:24 Dose: 20 mg Diphenhydramine HCl (Benadryl) 50 mg PO Q8 PRN PRN Reason: Itching / Pruritus Enoxaparin Sodium (Lovenox) 100 mg SC Q12H [facility] PRN Reason: Protocol Last Admin: 08/25/17 11:25 Dose: 100 mg Gabapentin (Neurontin) 300 mg PO BID [facility] PRN Reason: Protocol Last Admin: 08/25/17 11:25 Dose: 300 mg Meropenem (Merrem Iv 1 Gm Premix) 50 mls @ 100 mls/hr IVPB Q8 [facility] PRN Reason: Protocol Last Admin: 08/25/17 05:09 Dose: 100 mls/hr Ondansetron HCl (Zofran Inj) 4 mg IVP Q4H PRN PRN Reason: Nausea/Vomiting Pantoprazole Sodium (Protonix Ec Tab) 40 mg PO 0600 [facility] Last Admin: 08/25/17 05:09 Dose: 40 mg Warfarin Sodium (Coumadin) 10 mg PO 1800 [facility] PRN Reason: Protocol Stop: 08/27/17 18:01 - Labs Labs: 08/25/17 07:00 08/25/17 07:00 PT 12.5 SECONDS (9.4-12.5) 08/25/17 07:00 INR 1.09 (0.93-1.08) H 08/25/17 07:00 APTT 30.0 Seconds (25.1-36.5) 08/25/17 07:00 - Constitutional Appears: Non-toxic, No Acute Distress - Head Exam Head Exam: ATRAUMATIC, NORMAL INSPECTION, NORMOCEPHALIC - Eye Exam Eye Exam: EOMI, Normal appearance - ENT Exam ENT Exam: Mucous Membranes Moist, Normal Exam - Neck Exam Neck Exam: Full ROM, Normal Inspection - Respiratory Exam Respiratory Exam: Clear to Ausculation Bilateral, NORMAL BREATHING PATTERN - Cardiovascular Exam Cardiovascular Exam: REGULAR RHYTHM, +S1, +S2 - GI/Abdominal Exam GI & Abdominal Exam: Soft. 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, colostomy, indwelling haque, DVT on Coumadin, stage 4 sacral DU, HTN admitted for 2 days of hypogastic abdominal cramping, cloudy urine Plan: Catheter assoc UTI Afebrile No leukocytosis Haque in place Urine cx pos for Proteus Mirabilis Merrem (day 4, started 08/21) Benadryl PRN Tylenol PRN Zofran PRN Urology consulted ID following- Plan to switch to Bactrim upon discharge Echo neg for vegetations Stage 4 sacral decubitus ulcer of Right ischial Tuberosity POD#0 s/p debridement On Merrem Vitamin C daily Baclofen Neurontin Wound care Air mattress Turn pt Q2H/positioning Ortho consulted for possible osteo Hx DVT Therapeutic Lovenox restarted Coumadin 10mg x 2 days during bridge FU INR GI/DVT ppx Protonix Lovenox/coumadin Dispo: [facility] Supplements PT DW attending Eli, PGY-1 <Tobin Piedra - Last Filed: 08/26/17 07:56> Objective - Vital Signs/Intake and Output Vital Signs (last 24 hours): Temp Pulse Resp BP Pulse Ox 97.9 F 62 20 116/73 98 08/25/17 22:06 08/25/17 22:06 08/25/17 22:06 08/25/17 22:06 08/25/17 22:06 Intake and Output: 08/26/17 08/26/17 06:59 18:59 Intake Total 720 Output Total 1100 Balance -380 - Medications Medications: Current Medications Acetaminophen (Tylenol 325mg Tab) 650 mg PO Q6H PRN PRN Reason: Fever >100.4 F Last Admin: 08/26/17 04:15 Dose: 650 mg Ascorbic Acid (Vitamin C 500 Mg Tab) 500 mg PO DAILY [facility] Last Admin: 08/25/17 11:25 Dose: 500 mg Baclofen (Lioresal) 20 mg PO BID PRN PRN Reason: Pain, Mild (1-3) Last Admin: 08/26/17 04:19 Dose: 20 mg Diphenhydramine HCl (Benadryl) 50 mg PO Q8 PRN PRN Reason: Itching / Pruritus Enoxaparin Sodium (Lovenox) 100 mg SC Q12H [facility] PRN Reason: Protocol Last Admin: 08/25/17 21:11 Dose: 100 mg Gabapentin (Neurontin) 300 mg PO BID [facility] PRN Reason: Protocol Last Admin: 08/25/17 18:01 Dose: 300 mg Meropenem (Merrem Iv 1 Gm Premix) 50 mls @ 100 mls/hr IVPB Q8 [facility] PRN Reason: Protocol Last Admin: 08/26/17 05:53 Dose: 100 mls/hr Ondansetron HCl (Zofran Inj) 4 mg IVP Q4H PRN PRN Reason: Nausea/Vomiting Pantoprazole Sodium (Protonix Ec Tab) 40 mg PO 0600 [facility] Last Admin: 08/26/17 05:54 Dose: 40 mg Warfarin Sodium (Coumadin) 10 mg PO 1800 [facility] PRN Reason: Protocol Stop: 08/27/17 18:01 Last Admin: 08/25/17 18:04 Dose: 10 mg - Labs Labs: 08/25/17 07:00 08/25/17 07:00 PT 13.1 SECONDS (9.4-12.5) H 08/26/17 07:00 INR 1.14 (0.93-1.08) H 08/26/17 07:00 APTT 36.1 Seconds (25.1-36.5) 08/26/17 07:00 Attending/Attestation - Attestation I have personally seen and examined this patient.: Yes I have fully participated in the care of the patient.: Yes I have reviewed all pertinent clinical information, including history, physical exam and plan: Yes Notes (Text): 08/26/17 07:51 Attending note; Patient seen and examined with resident. 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 Proteus UTI; currently on meropenem . Initial Blood culture grew coagulase-negative staph. Repeat blood culture is negative since . Echocardiogram was negative for vegetations. Sacral decubitus; wound culture grew Corynebacterium and Proteus. s/p Debridement today. Case discussed with surgery in detail. Started on Lovenox and Coumadin. Monitor INR today. Continue colostomy care. Upon discharge the patient will follow up with PMD Dr. Dominguez. 08/26/17 07:55
--- NOTE | 2017-08-25 22:44 | PN ---
DATE: 08/25/2017 SUBJECTIVE: The patient is in bed, in no acute distress, nontoxic. No fevers. The patient was seen earlier today. PHYSICAL EXAMINATION: VITAL SIGNS: Temperature of 98, blood pressure is 126/60, respiratory rate of 18, heart rate of 64. HEENT: Examination of HEENT is unremarkable. NECK: Supple. LUNGS: Have decreased breath sounds. HEART: Normal S1 and S2. ABDOMEN: Soft. LABORATORY DATA: Laboratory examination reveals white count of 4000, hemoglobin 11. BUN of 17, creatinine of 0.7. Urinalysis is noted. Microbiology reveals the patient's blood cultures have coag-negative Staph and the buttocks culture is Proteus. Urine culture is also Proteus. ASSESSMENT AND PLAN: A 52-year-old with a coagulase-negative Staphylococcus bacteremia, most likely a contamination. No intravascular hardware. The patient admitted with a Proteus mirabilis urinary tract infection with sepsis secondary to Proteus mirabilis urinary tract infection and infected sacrum for a debridement. Currently, on meropenem. We will follow with you. Colt Coronel MD
[2017-08-26] MEDS: Meropenem IV 1 gm in NS 50 ML IVPB SCH ×3 (05:53→21:48)
[2017-08-26] MEDS: Pantoprazole 40 mg EC Tab PO SCH (05:54)
[2017-08-26 07:39] LABS: INR 1.14 (0.93-1.08); PARTIAL THROMBOPLASTIN TIME 36.1 Seconds (25.1-36.5); PROTHROMBIN TIME 13.1 SECONDS (9.4-12.5)
--- NOTE | 2017-08-26 08:43 | CP.PCM.PN ---
<Ministerio Smith - Last Filed: 08/26/17 12:12> Subjective - Date & Time of Evaluation Date of Evaluation: 08/26/17 Time of Evaluation: 08:25 - Subjective Subjective: PGY1 Medicine Note for Dr. Piedra Patient seen and examined at bedside. No acute event overnight. Patient is s/p wound debridement POD#1. Patient reports pain is controlled with Tylenol. He has had normal colostomy function. No complaints at this time. Objective - Vital Signs/Intake and Output Vital Signs (last 24 hours): Temp Pulse Resp BP Pulse Ox 97.9 F 61 80 H 133/75 78 L 08/26/17 06:00 08/26/17 06:00 08/26/17 06:00 08/26/17 06:00 08/26/17 06:00 Intake and Output: 08/26/17 08/26/17 06:59 18:59 Intake Total 720 Output Total 1100 Balance -380 - Medications Medications: Current Medications Acetaminophen (Tylenol 325mg Tab) 650 mg PO Q6H PRN PRN Reason: Fever >100.4 F Last Admin: 08/26/17 04:15 Dose: 650 mg Ascorbic Acid (Vitamin C 500 Mg Tab) 500 mg PO DAILY [facility] Last Admin: 08/25/17 11:25 Dose: 500 mg Baclofen (Lioresal) 20 mg PO BID PRN PRN Reason: Pain, Mild (1-3) Last Admin: 08/26/17 04:19 Dose: 20 mg Diphenhydramine HCl (Benadryl) 50 mg PO Q8 PRN PRN Reason: Itching / Pruritus Enoxaparin Sodium (Lovenox) 100 mg SC Q12H [facility] PRN Reason: Protocol Last Admin: 08/25/17 21:11 Dose: 100 mg Gabapentin (Neurontin) 300 mg PO BID [facility] PRN Reason: Protocol Last Admin: 08/25/17 18:01 Dose: 300 mg Meropenem (Merrem Iv 1 Gm Premix) 50 mls @ 100 mls/hr IVPB Q8 [facility] PRN Reason: Protocol Last Admin: 08/26/17 05:53 Dose: 100 mls/hr Ondansetron HCl (Zofran Inj) 4 mg IVP Q4H PRN PRN Reason: Nausea/Vomiting Pantoprazole Sodium (Protonix Ec Tab) 40 mg PO 0600 [facility] Last Admin: 08/26/17 05:54 Dose: 40 mg Warfarin Sodium (Coumadin) 10 mg PO 1800 [facility] PRN Reason: Protocol Stop: 08/27/17 18:01 Last Admin: 08/25/17 18:04 Dose: 10 mg - Labs Labs: 08/25/17 07:00 08/25/17 07:00 PT 13.1 SECONDS (9.4-12.5) H 08/26/17 07:00 INR 1.14 (0.93-1.08) H 08/26/17 07:00 APTT 36.1 Seconds (25.1-36.5) 08/26/17 07:00 - Additional Findings Additional findings: - Constitutional Appears: Non-toxic, No Acute Distress - Head Exam Head Exam: ATRAUMATIC, NORMAL INSPECTION, NORMOCEPHALIC - Eye Exam Eye Exam: EOMI, Normal appearance - ENT Exam ENT Exam: Mucous Membranes Moist, Normal Exam - Neck Exam Neck Exam: Full ROM, Normal Inspection - Respiratory Exam Respiratory Exam: Clear to Ausculation Bilateral, NORMAL BREATHING PATTERN - Cardiovascular Exam Cardiovascular Exam: REGULAR RHYTHM, +S1, +S2 - GI/Abdominal Exam GI & Abdominal Exam: Soft. 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 Catheter associated UTI Afebrile No leukocytosis Haque in place Urine cx pos for Proteus Mirabilis Merrem (day 4, started 08/21) Benadryl PRN Tylenol PRN Zofran PRN Urology consult ID consult - Plan to switch to Bactrim upon discharge Echo negative 2. Stage 4 sacral decubitus ulcer of Right ischial Tuberosity POD#1 s/p wound debridement Wound culture pending Merrem Vitamin C daily Baclofen Neurontin Wound care Air mattress Turn pt Q2H/positioning 3. history of DVT Lovenox restarted - will continue until INR is therapeutic from Coumadin bridge Coumadin 10mg today f/u INR 4. Prophylactic measures Protonix Lovenox/coumadin Dispo: 1. INR > 1.8 2. Wounc culture pending 3. PT/OT Case discussed with Dr. Dorothea Smith PGY1 <Tobin Piedra - Last Filed: 08/27/17 16:13> Objective - Vital Signs/Intake and Output Vital Signs (last 24 hours): Temp Pulse Resp BP Pulse Ox 97.9 F 64 20 110/71 97 08/27/17 14:00 08/27/17 14:00 08/27/17 14:00 08/27/17 14:00 08/27/17 14:00 Intake and Output: 08/27/17 08/27/17 06:59 18:59 Intake Total 980 420 Output Total 1800 2000 Balance -820 -1580 - Medications Medications: Current Medications Acetaminophen (Tylenol 325mg Tab) 650 mg PO Q6H PRN PRN Reason: Fever >100.4 F Last Admin: 08/27/17 05:26 Dose: 650 mg Ascorbic Acid (Vitamin C 500 Mg Tab) 500 mg PO DAILY [facility] Last Admin: 08/27/17 15:55 Dose: 500 mg Baclofen (Lioresal) 20 mg PO BID PRN PRN Reason: Pain, Mild (1-3) Last Admin: 08/27/17 05:26 Dose: 20 mg Diphenhydramine HCl (Benadryl) 50 mg PO Q8 PRN PRN Reason: Itching / Pruritus Enoxaparin Sodium (Lovenox) 100 mg SC Q12H [facility] PRN Reason: Protocol Last Admin: 08/27/17 09:47 Dose: 100 mg Gabapentin (Neurontin) 300 mg PO BID [facility] PRN Reason: Protocol Last Admin: 08/26/17 18:15 Dose: 300 mg Meropenem (Merrem Iv 1 Gm Premix) 50 mls @ 100 mls/hr IVPB Q8 [facility] PRN Reason: Protocol Last Admin: 08/27/17 15:55 Dose: 100 mls/hr Ondansetron HCl (Zofran Inj) 4 mg IVP Q4H PRN PRN Reason: Nausea/Vomiting Pantoprazole Sodium (Protonix Ec Tab) 40 mg PO 0600 [facility] Last Admin: 08/27/17 05:26 Dose: 40 mg Warfarin Sodium (Coumadin) 10 mg PO 1800 [facility] PRN Reason: Protocol Stop: 08/27/17 18:01 Last Admin: 08/26/17 18:15 Dose: 10 mg - Labs Labs: 08/27/17 07:30 08/27/17 07:30 PT 13.8 SECONDS (9.4-12.5) H 08/27/17 06:45 INR 1.20 (0.93-1.08) H 08/27/17 06:45 APTT 33.5 Seconds (25.1-36.5) 08/27/17 06:45 Attending/Attestation - Attestation I have personally seen and examined this patient.: Yes I have fully participated in the care of the patient.: Yes I have reviewed all pertinent clinical information, including history, physical exam and plan: Yes Notes (Text): 08/27/17 16:10 Attending note; Patient seen and examined with resident. 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 Proteus UTI; currently on meropenem . Initial Blood culture grew coagulase-negative staph. Repeat blood culture is negative since . Echocardiogram was negative for vegetations. Haque changed. Clear urine in the bag. Sacral decubitus; wound culture grew Corynebacterium and Proteus. s/p Debridement.cultures negative so far. Case discussed with surgery in detail. Started on Lovenox and Coumadin. INR is 1.14 today. Continue colostomy care. Continue physical therapy. Upon discharge the patient will follow up with PMD Dr. Dominguez. 08/27/17 16:13
--- NOTE | 2017-08-26 10:26 | CP.PCM.PN ---
Subjective - Date & Time of Evaluation Date of Evaluation: 08/26/17 Time of Evaluation: 08:00 - Subjective Subjective: Surgery progress note for Dr. Askew Patient seen and examined at bedside. Per nursing staff, no acute events overnight. Patient reports mild pain over site of ulceration. Denies fever, chills, nausea, vomiting, diarrhea. Denies abdominal pain. Objective - Vital Signs/Intake and Output Vital Signs (last 24 hours): Temp Pulse Resp BP Pulse Ox 97.9 F 61 80 H 133/75 78 L 08/26/17 06:00 08/26/17 06:00 08/26/17 06:00 08/26/17 06:00 08/26/17 06:00 Intake and Output: 08/26/17 08/26/17 06:59 18:59 Intake Total 720 Output Total 1100 Balance -380 - Medications Medications: Current Medications Acetaminophen (Tylenol 325mg Tab) 650 mg PO Q6H PRN PRN Reason: Fever >100.4 F Last Admin: 08/26/17 04:15 Dose: 650 mg Ascorbic Acid (Vitamin C 500 Mg Tab) 500 mg PO DAILY [facility] Last Admin: 08/25/17 11:25 Dose: 500 mg Baclofen (Lioresal) 20 mg PO BID PRN PRN Reason: Pain, Mild (1-3) Last Admin: 08/26/17 04:19 Dose: 20 mg Diphenhydramine HCl (Benadryl) 50 mg PO Q8 PRN PRN Reason: Itching / Pruritus Enoxaparin Sodium (Lovenox) 100 mg SC Q12H [facility] PRN Reason: Protocol Last Admin: 08/25/17 21:11 Dose: 100 mg Gabapentin (Neurontin) 300 mg PO BID [facility] PRN Reason: Protocol Last Admin: 08/25/17 18:01 Dose: 300 mg Meropenem (Merrem Iv 1 Gm Premix) 50 mls @ 100 mls/hr IVPB Q8 [facility] PRN Reason: Protocol Last Admin: 08/26/17 05:53 Dose: 100 mls/hr Ondansetron HCl (Zofran Inj) 4 mg IVP Q4H PRN PRN Reason: Nausea/Vomiting Pantoprazole Sodium (Protonix Ec Tab) 40 mg PO 0600 [facility] Last Admin: 08/26/17 05:54 Dose: 40 mg Warfarin Sodium (Coumadin) 10 mg PO 1800 [facility] PRN Reason: Protocol Stop: 08/27/17 18:01 Last Admin: 08/25/17 18:04 Dose: 10 mg - Labs Labs: 08/25/17 07:00 08/25/17 07:00 PT 13.1 SECONDS (9.4-12.5) H 08/26/17 07:00 INR 1.14 (0.93-1.08) H 08/26/17 07:00 APTT 36.1 Seconds (25.1-36.5) 08/26/17 07:00 - Constitutional Appears: Non-toxic, No Acute Distress, Chronically Ill - Head Exam Head Exam: NORMAL INSPECTION - ENT Exam ENT Exam: Mucous Membranes Moist - Respiratory Exam Respiratory Exam: NORMAL BREATHING PATTERN - Cardiovascular Exam Cardiovascular Exam: +S1, +S2 - GI/Abdominal Exam GI & Abdominal Exam: Soft. absent: Distended, Firm, Guarding, Rigid, Tenderness Additional comments: Colostomy wafer and bag in place - Extremities Exam Additional comments: Bilateral lower extremities with contractures, minimal mobility - Back Exam Additional comments: Right ischeal ulceration packing and dressing changed. No bleeding or purulence. Packing and dressing saturated with serosanguinois drainage Assessment and Plan - Assessment and Plan (Free Text) Assessment: 52 M with stage IV R Ischial decubitus ulcer s/p OR debridement 08/25/17; gram positive bacteremia Plan: - Packing and dressing changed at bedside with alginate packing and optifoam dressing. - Further wound care by nursing; packing/dressing changes daily - cont IV ABX as per ID - Initial wound culture grew proteus and cornybacterium; f/u repeat wound cultures obtained in the OR - Air mattress, Q2 turns/positioning - Further recommendations as per Dr. Azar Tinoco PGY1
[2017-08-26] MEDS: Enoxaparin 100 mg Syringe SC SCH ×2 (10:27→21:30)
--- NOTE | 2017-08-26 22:22 | CP.PCM.PN ---
Subjective - Date & Time of Evaluation Date of Evaluation: 08/26/17 Time of Evaluation: 11:50 - Subjective Subjective: No fevers, less pain in the right hip area, no nausea. No diarrhea. Objective - Vital Signs/Intake and Output Vital Signs (last 24 hours): Temp Pulse Resp BP Pulse Ox 97.9 F 61 80 H 133/75 78 L 08/26/17 06:00 08/26/17 06:00 08/26/17 06:00 08/26/17 06:00 08/26/17 06:00 Intake and Output: 08/26/17 08/26/17 06:59 18:59 Intake Total 720 Output Total 1100 Balance -380 - Medications Medications: Current Medications Acetaminophen (Tylenol 325mg Tab) 650 mg PO Q6H PRN PRN Reason: Fever >100.4 F Last Admin: 08/26/17 04:15 Dose: 650 mg Ascorbic Acid (Vitamin C 500 Mg Tab) 500 mg PO DAILY [facility] Last Admin: 08/26/17 10:29 Dose: 500 mg Baclofen (Lioresal) 20 mg PO BID PRN PRN Reason: Pain, Mild (1-3) Last Admin: 08/26/17 04:19 Dose: 20 mg Diphenhydramine HCl (Benadryl) 50 mg PO Q8 PRN PRN Reason: Itching / Pruritus Enoxaparin Sodium (Lovenox) 100 mg SC Q12H [facility] PRN Reason: Protocol Last Admin: 08/26/17 10:27 Dose: 100 mg Gabapentin (Neurontin) 300 mg PO BID [facility] PRN Reason: Protocol Last Admin: 08/26/17 10:28 Dose: 300 mg Meropenem (Merrem Iv 1 Gm Premix) 50 mls @ 100 mls/hr IVPB Q8 [facility] PRN Reason: Protocol Last Admin: 08/26/17 05:53 Dose: 100 mls/hr Ondansetron HCl (Zofran Inj) 4 mg IVP Q4H PRN PRN Reason: Nausea/Vomiting Pantoprazole Sodium (Protonix Ec Tab) 40 mg PO 0600 [facility] Last Admin: 08/26/17 05:54 Dose: 40 mg Warfarin Sodium (Coumadin) 10 mg PO 1800 [facility] PRN Reason: Protocol Stop: 08/27/17 18:01 Last Admin: 08/25/17 18:04 Dose: 10 mg - Labs Labs: 08/25/17 07:00 08/25/17 07:00 PT 13.1 SECONDS (9.4-12.5) H 08/26/17 07:00 INR 1.14 (0.93-1.08) H 08/26/17 07:00 APTT 36.1 Seconds (25.1-36.5) 08/26/17 07:00 - Constitutional Appears: Non-toxic, Chronically Ill - Head Exam Head Exam: NORMAL INSPECTION - Respiratory Exam Respiratory Exam: Decreased Breath Sounds - Cardiovascular Exam Cardiovascular Exam: +S1, +S2 - GI/Abdominal Exam GI & Abdominal Exam: Soft. absent: Tenderness Assessment and Plan - Assessment and Plan (Free Text) Plan: Assessment consider complicated UTI with chronic indwelling Mackenzie catheter probable skin and skin structure infection around the ischial tuberosity area with decubitus ulcer S/P debridement history of sacral decubitus infection S/P debridement, grew Proteus S/P colostomy history of epidural abscess secondary to Strep pneumoniae with associated cord compression and lower extremity paralysis and neurogenic bladder S/P neurosurgery for abscess drainage and laminectomy history of partial small bowel obstruction significant smoking history alcohol abuse Plan continue Merrem and follow up OR cultures and pathology
[2017-08-27] MEDS: Pantoprazole 40 mg EC Tab PO SCH (05:26)
[2017-08-27] MEDS: Meropenem IV 1 gm in NS 50 ML IVPB SCH ×3 (05:26→21:08)
[2017-08-27 07:46] LABS: INR 1.2 (0.93-1.08); PARTIAL THROMBOPLASTIN TIME 33.5 Seconds (25.1-36.5); PROTHROMBIN TIME 13.8 SECONDS (9.4-12.5)
[2017-08-27 07:48] LABS: BASO # 0.02 K/mm3 (0.0-2.0); BASO % 0.4 % (0.0-3.0); EOS # 0.1 (0.0-0.7); EOS % 2.2 % (1.5-5.0); GRAN # 2.62 (1.4-6.5); GRAN % 58.5 % (50.0-68.0); HEMOGLOBIN 11.9 g/dL (14.0-18.0); LYMPH # 1.3 (1.2-3.4); LYMPH % 29.7 % (22.0-35.0); MEAN CELL VOLUME 81.6 fl (80.0-105.0); MEAN CORPUSCULAR HEMOGLOBIN 25.7 pg (25.0-35.0); MEAN CORPUSCULAR HGB CONC 31.5 g/dl (31.0-37.0); MEAN PLATELET VOLUME 10.8 fl (7.0-11.0); MONO # 0.4 (0.1-0.6); MONO % 9.2 % (1.0-6.0); RBC 4.63 10^6/uL (3.5-6.1); WHITE BLOOD COUNT 4.5 10^3/ul (4.5-11.0)
[2017-08-27 08:04] LABS: ALB/GLOB RATIO 1.1 (1.1-1.8); ALBUMIN 3.9 g/dL (3.0-4.8); ALT/SGPT 55 U/L (7-56); AST/SGOT 34 U/L (17-59); BLOOD UREA NITROGEN 18 mg/dL (7-21); CALCIUM 9.4 mg/dL (8.4-10.5); GFR AFRICAN-AMERICAN > 60; GFR NON-AFRICAN AMERICAN > 60
[2017-08-27] MEDS: Enoxaparin 100 mg Syringe SC SCH ×2 (09:47→21:08)
--- NOTE | 2017-08-27 11:02 | CP.PCM.PN ---
<Saumya Benitez - Last Filed: 08/27/17 10:59> Subjective - Date & Time of Evaluation Date of Evaluation: 08/27/17 Time of Evaluation: 11:00 - Subjective Subjective: IM progress note for Dr. Piedra-Saumya Benitez, PGY-1 Pt S & E at bedside 0715 Pt resting comfortably in bed. No acute events overnight. POD#2 s/p sacral decubitus wound debridement- no complaints at this time, pain well controlled. Normal colostomy function currently. Denies N & V, F & C, other complaints. Objective - Vital Signs/Intake and Output Vital Signs (last 24 hours): Temp Pulse Resp BP Pulse Ox 97.6 F 64 20 133/85 97 08/27/17 06:00 08/27/17 06:00 08/27/17 06:00 08/27/17 06:00 08/27/17 06:00 Intake and Output: 08/27/17 08/27/17 06:59 18:59 Intake Total 980 Output Total 1800 Balance -820 - Medications Medications: Current Medications Acetaminophen (Tylenol 325mg Tab) 650 mg PO Q6H PRN PRN Reason: Fever >100.4 F Last Admin: 08/27/17 05:26 Dose: 650 mg Ascorbic Acid (Vitamin C 500 Mg Tab) 500 mg PO DAILY [facility] Last Admin: 08/26/17 10:29 Dose: 500 mg Baclofen (Lioresal) 20 mg PO BID PRN PRN Reason: Pain, Mild (1-3) Last Admin: 08/27/17 05:26 Dose: 20 mg Diphenhydramine HCl (Benadryl) 50 mg PO Q8 PRN PRN Reason: Itching / Pruritus Enoxaparin Sodium (Lovenox) 100 mg SC Q12H DONAL PRN Reason: Protocol Last Admin: 08/27/17 09:47 Dose: 100 mg Gabapentin (Neurontin) 300 mg PO BID [facility]AL PRN Reason: Protocol Last Admin: 08/26/17 18:15 Dose: 300 mg Meropenem (Merrem Iv 1 Gm Premix) 50 mls @ 100 mls/hr IVPB Q8 DONAL PRN Reason: Protocol Last Admin: 08/27/17 05:26 Dose: 100 mls/hr Ondansetron HCl (Zofran Inj) 4 mg IVP Q4H PRN PRN Reason: Nausea/Vomiting Pantoprazole Sodium (Protonix Ec Tab) 40 mg PO 0600 DONAL Last Admin: 08/27/17 05:26 Dose: 40 mg Warfarin Sodium (Coumadin) 10 mg PO 1800 DONAL PRN Reason: Protocol Stop: 08/27/17 18:01 Last Admin: 08/26/17 18:15 Dose: 10 mg - Labs Labs: 08/27/17 07:30 08/27/17 07:30 PT 13.8 SECONDS (9.4-12.5) H 08/27/17 06:45 INR 1.20 (0.93-1.08) H 08/27/17 06:45 APTT 33.5 Seconds (25.1-36.5) 08/27/17 06:45 - Constitutional Appears: Non-toxic, No Acute Distress - Head Exam Head Exam: ATRAUMATIC, NORMAL INSPECTION, NORMOCEPHALIC - Eye Exam Eye Exam: EOMI, Normal appearance - ENT Exam ENT Exam: Mucous Membranes Moist, Normal Exam - Neck Exam Neck Exam: Full ROM, Normal Inspection - Respiratory Exam Respiratory Exam: Clear to Ausculation Bilateral, NORMAL BREATHING PATTERN - Cardiovascular Exam Cardiovascular Exam: REGULAR RHYTHM, +S1, +S2 - GI/Abdominal Exam GI & Abdominal Exam: Soft, Normal Bowel Sounds. 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, colostomy, indwelling haque, DVT on Coumadin, stage 4 sacral decubitus ulcer, and HTN admitted for hypogastic abdominal cramping, cloudy urine being treated for UTI & s/p sacral decubitus ulcer debridement POD#2 Plan: Catheter associated UTI Afebrile No leukocytosis Haque in place Urine cx pos for Proteus Mirabilis Merrem (day 6, started 08/21) Benadryl PRN Tylenol PRN Zofran PRN Urology consult ID consult - Plan to switch to Bactrim upon discharge Echo negative Stage 4 sacral decubitus ulcer of Right ischial Tuberosity POD#2 s/p wound debridement Wound culture neg x 24H Merrem Vitamin C daily Baclofen Neurontin Wound care Air mattress Turn pt Q2H/positioning Hx of DVT Lovenox to be continued - will continue until INR is therapeutic from Coumadin bridge Coumadin 10mg today INR 1.2 from 1.14 GI/DVT ppx Protonix Lovenox/coumadin Dispo: Goal INR >1.8 Wound culture pending PT/OT DW attending Eli, PGY-1 <Tobin Piedra - Last Filed: 08/27/17 16:14> Objective - Vital Signs/Intake and Output Vital Signs (last 24 hours): Temp Pulse Resp BP Pulse Ox 97.9 F 64 20 110/71 97 08/27/17 14:00 08/27/17 14:00 08/27/17 14:00 08/27/17 14:00 08/27/17 14:00 Intake and Output: 08/27/17 08/27/17 06:59 18:59 Intake Total 980 420 Output Total 1800 2000 Balance -820 -1580 - Medications Medications: Current Medications Acetaminophen (Tylenol 325mg Tab) 650 mg PO Q6H PRN PRN Reason: Fever >100.4 F Last Admin: 08/27/17 16:09 Dose: 650 mg Ascorbic Acid (Vitamin C 500 Mg Tab) 500 mg PO DAILY [facility] Last Admin: 08/27/17 15:55 Dose: 500 mg Baclofen (Lioresal) 20 mg PO BID PRN PRN Reason: Pain, Mild (1-3) Last Admin: 08/27/17 05:26 Dose: 20 mg Diphenhydramine HCl (Benadryl) 50 mg PO Q8 PRN PRN Reason: Itching / Pruritus Enoxaparin Sodium (Lovenox) 100 mg SC Q12H DONAL PRN Reason: Protocol Last Admin: 08/27/17 09:47 Dose: 100 mg Gabapentin (Neurontin) 300 mg PO BID [facility] PRN Reason: Protocol Last Admin: 08/26/17 18:15 Dose: 300 mg Meropenem (Merrem Iv 1 Gm Premix) 50 mls @ 100 mls/hr IVPB Q8 DONAL PRN Reason: Protocol Last Admin: 08/27/17 15:55 Dose: 100 mls/hr Ondansetron HCl (Zofran Inj) 4 mg IVP Q4H PRN PRN Reason: Nausea/Vomiting Pantoprazole Sodium (Protonix Ec Tab) 40 mg PO 0600 [facility] Last Admin: 08/27/17 05:26 Dose: 40 mg Warfarin Sodium (Coumadin) 10 mg PO 1800 [facility]AL PRN Reason: Protocol Stop: 08/27/17 18:01 Last Admin: 08/26/17 18:15 Dose: 10 mg - Labs Labs: 08/27/17 07:30 08/27/17 07:30 PT 13.8 SECONDS (9.4-12.5) H 08/27/17 06:45 INR 1.20 (0.93-1.08) H 08/27/17 06:45 APTT 33.5 Seconds (25.1-36.5) 08/27/17 06:45 Attending/Attestation - Attestation I have personally seen and examined this patient.: Yes I have fully participated in the care of the patient.: Yes I have reviewed all pertinent clinical information, including history, physical exam and plan: Yes Notes (Text): 08/27/17 16:14 Attending note; Patient seen and examined with resident. 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 Proteus UTI; currently on meropenem . Initial Blood culture grew coagulase-negative staph. Repeat blood culture is negative since . Echocardiogram was negative for vegetations. Haque changed. Clear urine in the bag. Sacral decubitus; wound culture grew Corynebacterium and Proteus. s/p Debridement. poD # 2. Dressing done by surgery . cultures negative so far. Case discussed with surgery in detail. Started on Lovenox and Coumadin. INR is 1.2 today. Continue colostomy care. Continue physical therapy. Upon discharge the patient will follow up with PMD Dr. Dominguez.
--- NOTE | 2017-08-27 16:13 | CP.PCM.PN ---
Subjective - Date & Time of Evaluation Date of Evaluation: 08/27/17 Time of Evaluation: 09:10 - Subjective Subjective: Comfortable, afebrile. Objective - Vital Signs/Intake and Output Vital Signs (last 24 hours): Temp Pulse Resp BP Pulse Ox 97.6 F 64 20 133/85 97 08/27/17 06:00 08/27/17 06:00 08/27/17 06:00 08/27/17 06:00 08/27/17 06:00 Intake and Output: 08/27/17 08/27/17 06:59 18:59 Intake Total 980 Output Total 1800 Balance -820 - Medications Medications: Current Medications Acetaminophen (Tylenol 325mg Tab) 650 mg PO Q6H PRN PRN Reason: Fever >100.4 F Last Admin: 08/27/17 05:26 Dose: 650 mg Ascorbic Acid (Vitamin C 500 Mg Tab) 500 mg PO DAILY [facility] Last Admin: 08/26/17 10:29 Dose: 500 mg Baclofen (Lioresal) 20 mg PO BID PRN PRN Reason: Pain, Mild (1-3) Last Admin: 08/27/17 05:26 Dose: 20 mg Diphenhydramine HCl (Benadryl) 50 mg PO Q8 PRN PRN Reason: Itching / Pruritus Enoxaparin Sodium (Lovenox) 100 mg SC Q12H DONAL PRN Reason: Protocol Last Admin: 08/26/17 21:30 Dose: 100 mg Gabapentin (Neurontin) 300 mg PO BID [facility] PRN Reason: Protocol Last Admin: 08/26/17 18:15 Dose: 300 mg Meropenem (Merrem Iv 1 Gm Premix) 50 mls @ 100 mls/hr IVPB Q8 [facility]AL PRN Reason: Protocol Last Admin: 08/27/17 05:26 Dose: 100 mls/hr Ondansetron HCl (Zofran Inj) 4 mg IVP Q4H PRN PRN Reason: Nausea/Vomiting Pantoprazole Sodium (Protonix Ec Tab) 40 mg PO 0600 [facility] Last Admin: 08/27/17 05:26 Dose: 40 mg Warfarin Sodium (Coumadin) 10 mg PO 1800 [facility] PRN Reason: Protocol Stop: 08/27/17 18:01 Last Admin: 08/26/17 18:15 Dose: 10 mg - Labs Labs: 08/27/17 07:30 08/27/17 07:30 PT 13.8 SECONDS (9.4-12.5) H 08/27/17 06:45 INR 1.20 (0.93-1.08) H 08/27/17 06:45 APTT 33.5 Seconds (25.1-36.5) 08/27/17 06:45 - Constitutional Appears: Non-toxic, Chronically Ill - Head Exam Head Exam: NORMAL INSPECTION - ENT Exam ENT Exam: Mucous Membranes Moist - Neck Exam Neck Exam: absent: Meningismus - Respiratory Exam Respiratory Exam: Decreased Breath Sounds - Cardiovascular Exam Cardiovascular Exam: +S1, +S2 - GI/Abdominal Exam GI & Abdominal Exam: Soft. absent: Tenderness Assessment and Plan - Assessment and Plan (Free Text) Plan: Assessment consider complicated UTI with chronic indwelling Mackenzie catheter probable skin and skin structure infection around the ischial tuberosity area with decubitus ulcer S/P debridement history of sacral decubitus infection S/P debridement, grew Proteus S/P colostomy history of epidural abscess secondary to Strep pneumoniae with associated cord compression and lower extremity paralysis and neurogenic bladder S/P neurosurgery for abscess drainage and laminectomy history of partial small bowel obstruction significant smoking history alcohol abuse Plan continue Merrem and follow up OR cultures and pathology
[2017-08-28] MEDS: Meropenem IV 1 gm in NS 50 ML IVPB SCH ×3 (05:17→21:19)
[2017-08-28] MEDS: Pantoprazole 40 mg EC Tab PO SCH (05:18)
--- NOTE | 2017-08-28 06:05 | OP ---
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 DESCRIPTION OF PROCEDURE: In the operating room, patient was identified by name, name of the procedure, laterality, my rama, and the consent. Patient was placed with the right side up in a supine position, padded correctly and then examined. There was a very small puncta. This was right on the ischium and clearly ischium was involved. A curette was used to remove some bone, but very little came out. The area was cleaned with circumferentially to good bleeding tissues circumferentially. The area was irrigated and packed with Aquacel. Patient was taken to the recovery room in good condition after sponge and needle count was declared correct. Trever Askew MD
[2017-08-28 07:17] LABS: BASO # 0.01 K/mm3 (0.0-2.0); BASO % 0.2 % (0.0-3.0); EOS # 0.1 (0.0-0.7); EOS % 1.5 % (1.5-5.0); GRAN # 2.89 (1.4-6.5); GRAN % 62.5 % (50.0-68.0); HEMOGLOBIN 12.2 g/dL (14.0-18.0); LYMPH # 1.3 (1.2-3.4); LYMPH % 27.2 % (22.0-35.0); MEAN CELL VOLUME 81.8 fl (80.0-105.0); MEAN CORPUSCULAR HEMOGLOBIN 25.8 pg (25.0-35.0); MEAN CORPUSCULAR HGB CONC 31.6 g/dl (31.0-37.0); MEAN PLATELET VOLUME 10.8 fl (7.0-11.0); MONO # 0.4 (0.1-0.6); MONO % 8.6 % (1.0-6.0); RBC 4.72 10^6/uL (3.5-6.1); RED CELL DISTRIBUTION WIDTH 16.1 % (11.5-14.5); WHITE BLOOD COUNT 4.6 10^3/ul (4.5-11.0)
[2017-08-28 07:23] LABS: INR 1.29 (0.93-1.08); PARTIAL THROMBOPLASTIN TIME 35.2 Seconds (25.1-36.5); PROTHROMBIN TIME 14.9 SECONDS (9.4-12.5)
[2017-08-28 08:04] LABS: ALBUMIN 4.2 g/dL (3.0-4.8); ALT/SGPT 52 U/L (7-56); AST/SGOT 60 U/L (17-59); BLOOD UREA NITROGEN 18 mg/dL (7-21); CALCIUM 9.5 mg/dL (8.4-10.5); GFR AFRICAN-AMERICAN > 60; GFR NON-AFRICAN AMERICAN > 60
[2017-08-28] MEDS: Enoxaparin 100 mg Syringe SC SCH ×2 (09:55→21:18)
[2017-08-28] MEDS ORDERED: Vancomycin 1gm in NS 250ml 1 GM/250 ML BAG IVPB SCH (10:00)
--- NOTE | 2017-08-28 14:10 | CP.PCM.PN ---
Subjective - Date & Time of Evaluation Date of Evaluation: 08/28/17 Time of Evaluation: 11:35 - Subjective Subjective: Comfortable in bed, no fevers, not much pain in the right hip area, no dysuria, no diarrhea. Objective - Vital Signs/Intake and Output Vital Signs (last 24 hours): Temp Pulse Resp BP Pulse Ox 97.8 F 55 L 20 127/80 98 08/28/17 06:00 08/28/17 06:00 08/28/17 06:00 08/28/17 06:00 08/28/17 06:00 Intake and Output: 08/28/17 08/28/17 06:59 18:59 Intake Total 420 Output Total 2050 Balance -1630 - Medications Medications: Current Medications Acetaminophen (Tylenol 325mg Tab) 650 mg PO Q6H PRN PRN Reason: Fever >100.4 F Last Admin: 08/28/17 05:22 Dose: 650 mg Ascorbic Acid (Vitamin C 500 Mg Tab) 500 mg PO DAILY [facility] Last Admin: 08/27/17 15:55 Dose: 500 mg Baclofen (Lioresal) 20 mg PO BID PRN PRN Reason: Pain, Mild (1-3) Last Admin: 08/28/17 05:22 Dose: 20 mg Diphenhydramine HCl (Benadryl) 50 mg PO Q8 PRN PRN Reason: Itching / Pruritus Enoxaparin Sodium (Lovenox) 100 mg SC Q12H DONAL PRN Reason: Protocol Last Admin: 08/27/17 21:08 Dose: 100 mg Gabapentin (Neurontin) 300 mg PO BID [facility] PRN Reason: Protocol Last Admin: 08/27/17 17:44 Dose: 300 mg Meropenem (Merrem Iv 1 Gm Premix) 50 mls @ 100 mls/hr IVPB Q8 DONAL PRN Reason: Protocol Last Admin: 08/28/17 05:17 Dose: 100 mls/hr Vancomycin HCl (Vancomycin 1gm) 1 gm in 250 mls @ 167 mls/hr IVPB Q12H DONAL PRN Reason: Protocol Ondansetron HCl (Zofran Inj) 4 mg IVP Q4H PRN PRN Reason: Nausea/Vomiting Pantoprazole Sodium (Protonix Ec Tab) 40 mg PO 0600 [facility] Last Admin: 08/28/17 05:18 Dose: 40 mg Warfarin Sodium (Coumadin) 10 mg PO 1800 [facility]AL PRN Reason: Protocol Stop: 09/01/17 18:01 - Labs Labs: 08/28/17 07:00 08/28/17 07:00 PT 14.9 SECONDS (9.4-12.5) H 08/28/17 07:00 INR 1.29 (0.93-1.08) H 08/28/17 07:00 APTT 35.2 Seconds (25.1-36.5) 08/28/17 07:00 - Constitutional Appears: Non-toxic, Chronically Ill - Head Exam Head Exam: NORMAL INSPECTION - Neck Exam Neck Exam: absent: Meningismus - Respiratory Exam Respiratory Exam: Decreased Breath Sounds - Cardiovascular Exam Cardiovascular Exam: +S1, +S2 - GI/Abdominal Exam GI & Abdominal Exam: Soft. absent: Tenderness Assessment and Plan - Assessment and Plan (Free Text) Plan: Assessment consider complicated UTI with chronic indwelling Mackenzie catheter with Proteus probable skin and skin structure infection around the ischial tuberosity area with decubitus ulcer S/P debridement, growing gram negative bacilli and gram positive cocci history of sacral decubitus infection S/P debridement, grew Proteus S/P colostomy history of epidural abscess secondary to Strep pneumoniae with associated cord compression and lower extremity paralysis and neurogenic bladder S/P neurosurgery for abscess drainage and laminectomy history of partial small bowel obstruction significant smoking history alcohol abuse Plan continue Merrem day 7 and started Vancomycin pending final wound cx results follow up further plans of Surgery regarding the right hip decubitus ulcer
--- NOTE | 2017-08-28 14:14 | CP.PCM.PN ---
<Uzma Abbott - Last Filed: 08/28/17 14:15> Subjective - Date & Time of Evaluation Date of Evaluation: 08/28/17 Time of Evaluation: 07:00 - Subjective Subjective: PGY-[address] Piedra Dressing changed by wound care yesterday. No exudate/pus. Pain is controlled by tylenol. Normal ostomy output. No acute complaint Objective - Vital Signs/Intake and Output Vital Signs (last 24 hours): Temp Pulse Resp BP Pulse Ox 97.8 F 55 L 20 127/80 98 08/28/17 06:00 08/28/17 06:00 08/28/17 06:00 08/28/17 06:00 08/28/17 06:00 Intake and Output: 08/28/17 08/28/17 06:59 18:59 Intake Total 420 Output Total 2050 Balance -1630 - Medications Medications: Current Medications Acetaminophen (Tylenol 325mg Tab) 650 mg PO Q6H PRN PRN Reason: Fever >100.4 F Last Admin: 08/28/17 05:22 Dose: 650 mg Ascorbic Acid (Vitamin C 500 Mg Tab) 500 mg PO DAILY [facility] Last Admin: 08/28/17 10:55 Dose: 500 mg Baclofen (Lioresal) 20 mg PO BID PRN PRN Reason: Pain, Mild (1-3) Last Admin: 08/28/17 10:55 Dose: 20 mg Diphenhydramine HCl (Benadryl) 50 mg PO Q8 PRN PRN Reason: Itching / Pruritus Enoxaparin Sodium (Lovenox) 100 mg SC Q12H DONAL PRN Reason: Protocol Last Admin: 08/28/17 09:55 Dose: 100 mg Gabapentin (Neurontin) 300 mg PO BID [facility]AL PRN Reason: Protocol Last Admin: 08/28/17 11:07 Dose: 300 mg Meropenem (Merrem Iv 1 Gm Premix) 50 mls @ 100 mls/hr IVPB Q8 DONAL PRN Reason: Protocol Last Admin: 08/28/17 13:57 Dose: 100 mls/hr Vancomycin HCl (Vancomycin 1gm) 1 gm in 250 mls @ 167 mls/hr IVPB Q12H DONAL PRN Reason: Protocol Last Admin: 08/28/17 10:59 Dose: 167 mls/hr Ondansetron HCl (Zofran Inj) 4 mg IVP Q4H PRN PRN Reason: Nausea/Vomiting Pantoprazole Sodium (Protonix Ec Tab) 40 mg PO 0600 [facility] Last Admin: 08/28/17 05:18 Dose: 40 mg Warfarin Sodium (Coumadin) 12 mg PO 1800 DONAL PRN Reason: Protocol Stop: 09/01/17 18:01 - Labs Labs: 08/28/17 07:00 08/28/17 07:00 PT 14.9 SECONDS (9.4-12.5) H 08/28/17 07:00 INR 1.29 (0.93-1.08) H 08/28/17 07:00 APTT 35.2 Seconds (25.1-36.5) 08/28/17 07:00 - Constitutional Appears: No Acute Distress - Head Exam Head Exam: ATRAUMATIC, NORMAL INSPECTION, NORMOCEPHALIC - Eye Exam Eye Exam: EOMI, Normal appearance, PERRL. absent: Scleral icterus Pupil Exam: NORMAL ACCOMODATION - ENT Exam ENT Exam: Mucous Membranes Moist - Neck Exam Additional comments: supple - Respiratory Exam Respiratory Exam: Clear to Ausculation Bilateral. absent: Rales, Rhonchi, Wheezes - Cardiovascular Exam Cardiovascular Exam: REGULAR RHYTHM, +S1, +S2 - GI/Abdominal Exam GI & Abdominal Exam: Soft, Normal Bowel Sounds. absent: Rigid, Tenderness Additional comments: ostomy bag in place. no leakage/erythema - Extremities Exam Additional comments: LE b/l slight contracted. Mild sensory LE b/l dressing in b/l buttock in place. - Neurological Exam Neurological Exam: Alert, Awake, Oriented x3 - Psychiatric Exam Psychiatric exam: Normal Affect, Normal Mood - Skin Skin Exam: Dry, Warm Assessment and Plan - Assessment and Plan (Free Text) Plan: Mr Magana, 52M with PMH of paraplegia due to epidural abscess secondary to Strep pneumoniae with associated cord compression and lower extremity paralysis and neurogenic bowel/bladder (S/P neurosurgery, s/p abscess drainage and laminectomy , s/p colostomy, requiring chronic haque), Hx DVT on Coumadin, stage 4 sacral decubitus ulcer, and HTN admitted for hypogastic abdominal cramping, cloudy urine being treated for UTI & s/p sacral decubitus ulcer debridement POD#3. He is allergic to cephalosporin. He is being treated for complicated UTI and soft tissue infection at sacral ulcer. Stage 4 sacral decubitus ulcer b/l buttock Abscess at Right ischial Tuberosity POD#3 s/p wound debridement probable skin and skin structure infection around R ischial tuberosity area - Wound culture: Pseudomonas aeruginosa, enterococcus faecalis - ID added vanomycin (day 1, started 08/28) - Continue merrem (day 8, started 08/21) - Need to follow up PO abx? Vitamin C daily Baclofen Neurontin Wound care Air mattress Turn pt Q2H/positioning Catheter associated UTI, complicated - Afebrile; No leukocytosis - Urine cx (08/20) Proteus Mirabilis Benadryl PRN Tylenol PRN Zofran PRN Urology consult ID consult - Plan to switch to Bactrim upon discharge for UTI Hx of DVT - Lovenox to be continued - will continue until INR is therapeutic from Coumadin bridge - Coumadin 12mg today - INR 1.29 Initial Blood culture grew coagulase-negative staph, likely contamination - Repeat blood culture is negative since . - Echocardiogram was negative for vegetations. significant smoking history alcohol abuse - [employer] cessation GI/DVT ppx - Protonix - Lovenox/coumadin Dispo plan: - Goal at least achieve INR >1.8 - (+) Wound cx pending ID choice of oral ABX - PT/OT s/r/d/w Dr. Piedra <Tobin Piedra - Last Filed: 08/28/17 15:16> Objective - Vital Signs/Intake and Output Vital Signs (last 24 hours): Temp Pulse Resp BP Pulse Ox 98.1 F 64 20 127/78 98 08/28/17 13:00 08/28/17 13:00 08/28/17 13:00 08/28/17 13:00 08/28/17 13:00 Intake and Output: 08/28/17 08/28/17 06:59 18:59 Intake Total 420 1260 Output Total 2050 1400 Balance -1630 -140 - Medications Medications: Current Medications Acetaminophen (Tylenol 325mg Tab) 650 mg PO Q6H PRN PRN Reason: Fever >100.4 F Last Admin: 08/28/17 05:22 Dose: 650 mg Ascorbic Acid (Vitamin C 500 Mg Tab) 500 mg PO DAILY [facility] Last Admin: 08/28/17 10:55 Dose: 500 mg Baclofen (Lioresal) 20 mg PO BID PRN PRN Reason: Pain, Mild (1-3) Last Admin: 08/28/17 10:55 Dose: 20 mg Diphenhydramine HCl (Benadryl) 50 mg PO Q8 PRN PRN Reason: Itching / Pruritus Enoxaparin Sodium (Lovenox) 100 mg SC Q12H DONAL PRN Reason: Protocol Last Admin: 08/28/17 09:55 Dose: 100 mg Gabapentin (Neurontin) 300 mg PO BID [facility] PRN Reason: Protocol Last Admin: 08/28/17 11:07 Dose: 300 mg Meropenem (Merrem Iv 1 Gm Premix) 50 mls @ 100 mls/hr IVPB Q8 DONAL PRN Reason: Protocol Last Admin: 08/28/17 13:57 Dose: 100 mls/hr Vancomycin HCl (Vancomycin 1gm) 1 gm in 250 mls @ 167 mls/hr IVPB Q12H DONAL PRN Reason: Protocol Last Admin: 08/28/17 10:59 Dose: 167 mls/hr Ondansetron HCl (Zofran Inj) 4 mg IVP Q4H PRN PRN Reason: Nausea/Vomiting Pantoprazole Sodium (Protonix Ec Tab) 40 mg PO 0600 [facility] Last Admin: 08/28/17 05:18 Dose: 40 mg Warfarin Sodium (Coumadin) 12 mg PO 1800 [facility] PRN Reason: Protocol Stop: 09/01/17 18:01 - Labs Labs: 08/28/17 07:00 08/28/17 07:00 PT 14.9 SECONDS (9.4-12.5) H 08/28/17 07:00 INR 1.29 (0.93-1.08) H 08/28/17 07:00 APTT 35.2 Seconds (25.1-36.5) 08/28/17 07:00 Attending/Attestation - Attestation I have personally seen and examined this patient.: Yes I have fully participated in the care of the patient.: Yes I have reviewed all pertinent clinical information, including history, physical exam and plan: Yes Notes (Text): 08/28/17 15:10 Attending note; Patient seen and examined with resident. 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 Proteus UTI; currently on meropenem . Initial Blood culture grew coagulase-negative staph. Repeat blood culture is negative since . Echocardiogram was negative for vegetations. Haque changed. Clear urine in the bag. Sacral decubitus; wound culture grew Corynebacterium and Proteus. s/p Debridement. Dressing done by surgery . OR culture showed showed pseudomonas and enterococcus. follow up with ID. Started on Lovenox and Coumadin. INR is 1.29.Coumadin dosage increased today. Continue colostomy care. Continue physical therapy. Upon discharge the patient will follow up with PMD Dr. Dominguez.
[2017-08-28] MEDS ORDERED: DiphenhydrAMINE 50 mg/ml Inj IM ONE (22:25)
[2017-08-28] MEDS ORDERED: DiphenhydrAMINE 50 mg/ml Inj IVP STA (22:26)
[2017-08-29] MEDS: Pantoprazole 40 mg EC Tab PO SCH (05:53)
[2017-08-29 07:33] LABS: BASO # 0.01 K/mm3 (0.0-2.0); BASO % 0.2 % (0.0-3.0); EOS # 0.1 (0.0-0.7); EOS % 1.4 % (1.5-5.0); GRAN # 3.37 (1.4-6.5); GRAN % 65.1 % (50.0-68.0); HEMOGLOBIN 12.3 g/dL (14.0-18.0); LYMPH # 1.3 (1.2-3.4); LYMPH % 24.2 % (22.0-35.0); MEAN CELL VOLUME 81.1 fl (80.0-105.0); MEAN CORPUSCULAR HEMOGLOBIN 25.9 pg (25.0-35.0); MEAN CORPUSCULAR HGB CONC 31.9 g/dl (31.0-37.0); MEAN PLATELET VOLUME 11.2 fl (7.0-11.0); MONO # 0.5 (0.1-0.6); MONO % 9.1 % (1.0-6.0); RBC 4.75 10^6/uL (3.5-6.1); WHITE BLOOD COUNT 5.2 10^3/ul (4.5-11.0)
[2017-08-29 07:38] VITALS: RESP 20
[2017-08-29 07:48] LABS: ALB/GLOB RATIO 1.1 (1.1-1.8); ALBUMIN 3.8 g/dL (3.0-4.8); ALT/SGPT 50 U/L (7-56); AST/SGOT 32 U/L (17-59); BLOOD UREA NITROGEN 18 mg/dL (7-21); CALCIUM 9.5 mg/dL (8.4-10.5); GFR AFRICAN-AMERICAN > 60; GFR NON-AFRICAN AMERICAN > 60
[2017-08-29 08:16] LABS: INR 1.33 (0.93-1.08); PARTIAL THROMBOPLASTIN TIME 35.5 Seconds (25.1-36.5); PROTHROMBIN TIME 15.2 SECONDS (9.4-12.5)
[2017-08-29] MEDS: Enoxaparin 100 mg Syringe SC SCH ×2 (09:39→21:34)
--- NOTE | 2017-08-29 11:45 | PN ---
DATE: 08/29/2017 SUBJECTIVE: Patient is in bed, seen earlier today, he had a reaction, he is not sure if it was vancomycin or meropenem. No fevers and chills. He started itching. PHYSICAL EXAMINATION: VITAL SIGNS: Temperature is 98, blood pressure is 120/80, respiratory rate of 18. HEENT: Unremarkable. NECK: Supple. LUNGS: Decreased breath sounds. HEART: Normal S1, S2. ABDOMEN: Soft. LABORATORY DATA: Reveals a white count of 5.2, hemoglobin of 12, platelets of 182. Chemistry reveals a BUN of 18, creatinine of 0.6. Urinalysis is noted. Decubitus cultures are Pseudomonas and Enterococcus. ASSESSMENT AND PLAN: This is a 52-year-old male with complicated urinary tract infection, chronic indwelling catheter with Proteus follow and probable skin and skin structure infection with ischial tuberosity area status post debridement in a patient with history of epidural abscess secondary to Streptococcus pneumoniae with cord compression, lower extremity paralysis, neurogenic bladder, alcohol use and smoking, had a questionable reaction to meropenem versus vancomycin , has had received 7-days of meropenem. We will discontinue the antibiotics and at this time, he has had adequate antibiotics. We will follow with you. Colt Coronel MD
--- NOTE | 2017-08-29 14:26 | CP.PCM.PN ---
<Derek Keyes - Last Filed: 08/29/17 13:39> Subjective - Date & Time of Evaluation Date of Evaluation: 08/29/17 Time of Evaluation: 09:39 - Subjective Subjective: PGY1 Medicine Note for Dr. Piedra Patient seen and examined at bedside this morning. Patient experienced a rash/ erythema while receiving IV antibiotics last night. His infusions were discontinue, given Benadryl and the erythema improved. Patient is comfortable in bed. Patient no complaints at this time. Denies fevers, chills, nausea, vomiting, chest pain, shortness of breath, palpitations or abdominal pain. Objective - Vital Signs/Intake and Output Vital Signs (last 24 hours): Temp Pulse Resp BP Pulse Ox 97.9 F 69 20 129/82 98 08/29/17 07:37 08/29/17 07:37 08/29/17 07:37 08/29/17 07:37 08/29/17 07:37 Intake and Output: 08/29/17 08/29/17 06:59 18:59 Intake Total 200 480 Output Total 1800 700 Balance -1600 -220 - Medications Medications: Current Medications Acetaminophen (Tylenol 325mg Tab) 650 mg PO Q6H PRN PRN Reason: Fever >100.4 F and pain (4-7) Last Admin: 08/29/17 10:05 Dose: 650 mg Ascorbic Acid (Vitamin C 500 Mg Tab) 500 mg PO DAILY [facility] Last Admin: 08/29/17 09:39 Dose: 500 mg Baclofen (Lioresal) 20 mg PO BID PRN PRN Reason: Pain, Mild (1-3) Last Admin: 08/28/17 10:55 Dose: 20 mg Diphenhydramine HCl (Benadryl) 50 mg PO Q8 PRN PRN Reason: Itching / Pruritus Last Admin: 08/28/17 21:44 Dose: 50 mg Enoxaparin Sodium (Lovenox) 100 mg SC Q12H [facility] PRN Reason: Protocol Last Admin: 08/29/17 09:39 Dose: 100 mg Gabapentin (Neurontin) 300 mg PO BID [facility] Last Admin: 08/29/17 09:39 Dose: 300 mg Hydroxyzine HCl (Atarax) 25 mg PO Q6H PRN PRN Reason: Itching / Pruritus Last Admin: 08/28/17 23:49 Dose: 25 mg Ondansetron HCl (Zofran Inj) 4 mg IVP Q4H PRN PRN Reason: Nausea/Vomiting Pantoprazole Sodium (Protonix Ec Tab) 40 mg PO 0600 [facility] Last Admin: 08/29/17 05:53 Dose: 40 mg Warfarin Sodium (Coumadin) 12 mg PO 1800 [facility] PRN Reason: Protocol Stop: 09/01/17 18:01 Last Admin: 08/28/17 18:09 Dose: 12 mg - Labs Labs: 08/29/17 07:00 08/29/17 07:00 PT 15.2 SECONDS (9.4-12.5) H 08/29/17 07:00 INR 1.33 (0.93-1.08) H 08/29/17 07:00 APTT 35.5 Seconds (25.1-36.5) 08/29/17 07:00 - Constitutional Appears: Non-toxic, No Acute Distress - Head Exam Head Exam: ATRAUMATIC, NORMOCEPHALIC - Eye Exam Eye Exam: Normal appearance - ENT Exam ENT Exam: Mucous Membranes Moist - Respiratory Exam Respiratory Exam: Clear to Ausculation Bilateral, NORMAL BREATHING PATTERN. absent: Accessory Muscle Use, Rales, Rhonchi, Wheezes, Respiratory Distress - Cardiovascular Exam Cardiovascular Exam: REGULAR RHYTHM, +S1, +S2 - GI/Abdominal Exam GI & Abdominal Exam: Soft. absent: Distended, Firm, Guarding, Rigid, Tenderness Additional comments: Ostomy bag in place producing light brown stool. - Extremities Exam Extremities Exam: absent: Calf Tenderness, Pedal Edema Additional comments: LE b/l slight contracted. Mild sensory LE b/l dressing in b/l buttock in place. - Neurological Exam Neurological Exam: Alert, Awake, CN II-XII Intact, Oriented x3 - Psychiatric Exam Psychiatric exam: Normal Affect, Normal Mood - Skin Skin Exam: Dry, Warm Assessment and Plan - Assessment and Plan (Free Text) Assessment: Mr Magana, 52M with PMH of paraplegia due to epidural abscess secondary to Strep pneumoniae with associated cord compression and lower extremity paralysis and neurogenic bowel/bladder (S/P neurosurgery, s/p abscess drainage and laminectomy , s/p colostomy, requiring chronic haque), Hx DVT on Coumadin, stage 4 sacral decubitus ulcer, and HTN admitted for hypogastic abdominal cramping, cloudy urine being treated for UTI & s/p sacral decubitus ulcer debridement POD#3. He is allergic to cephalosporin. He is being treated for complicated UTI and soft tissue infection at sacral ulcer. Plan: Stage 4 sacral decubitus ulcer b/l buttock Abscess at Right ischial Tuberosity POD#4 s/p wound debridement * packing/dressing changes daily by nursing probable skin and skin structure infection around R ischial tuberosity area - Wound culture 08/25: Pseudomonas aeruginosa, enterococcus faecalis - vanomycin (started 08/28) - discontinued to erythema/reaction - Continue merrem (started 08/21) - discontinued to erythema/reaction - follow up ID recommendations for new abx - Need to follow up PO abx? Vitamin C daily Baclofen Neurontin Wound care Air mattress Turn pt Q2H/positioning Catheter associated UTI, complicated - Afebrile; No leukocytosis - Urine cx (08/20) Proteus Mirabilis Benadryl PRN Tylenol PRN Zofran PRN Urology consult ID consult - Plan to switch to Bactrim upon discharge for UTI Hx of DVT - Lovenox to be continued - will continue until INR is therapeutic from Coumadin bridge - Coumadin 12mg today - INR 1.33 Initial Blood culture grew coagulase-negative staph, likely contamination - Repeat blood culture is negative since . - Echocardiogram was negative for vegetations. 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 Dorothea Reed Wali PGY1 <Tobin Piedra - Last Filed: 08/29/17 16:54> Objective - Vital Signs/Intake and Output Vital Signs (last 24 hours): Temp Pulse Resp BP Pulse Ox 98.5 F 60 20 125/75 100 08/29/17 14:00 08/29/17 14:00 08/29/17 14:00 08/29/17 14:00 08/29/17 14:00 Intake and Output: 08/29/17 08/29/17 06:59 18:59 Intake Total 200 1120 Output Total 1800 1300 Balance -1600 -180 - Medications Medications: Current Medications Acetaminophen (Tylenol 325mg Tab) 650 mg PO Q6H PRN PRN Reason: Fever >100.4 F and pain (4-7) Last Admin: 08/29/17 10:05 Dose: 650 mg Ascorbic Acid (Vitamin C 500 Mg Tab) 500 mg PO DAILY [facility] Last Admin: 08/29/17 09:39 Dose: 500 mg Baclofen (Lioresal) 20 mg PO BID PRN PRN Reason: Pain, Mild (1-3) Last Admin: 08/28/17 10:55 Dose: 20 mg Diphenhydramine HCl (Benadryl) 50 mg PO Q8 PRN PRN Reason: Itching / Pruritus Last Admin: 08/28/17 21:44 Dose: 50 mg Enoxaparin Sodium (Lovenox) 100 mg SC Q12H [facility] PRN Reason: Protocol Last Admin: 08/29/17 09:39 Dose: 100 mg Gabapentin (Neurontin) 300 mg PO BID [facility] Last Admin: 08/29/17 09:39 Dose: 300 mg Hydroxyzine HCl (Atarax) 25 mg PO Q6H PRN PRN Reason: Itching / Pruritus Last Admin: 08/28/17 23:49 Dose: 25 mg Ondansetron HCl (Zofran Inj) 4 mg IVP Q4H PRN PRN Reason: Nausea/Vomiting Pantoprazole Sodium (Protonix Ec Tab) 40 mg PO 0600 [facility] Last Admin: 08/29/17 05:53 Dose: 40 mg Warfarin Sodium (Coumadin) 12 mg PO 1800 [facility] PRN Reason: Protocol Stop: 09/01/17 18:01 Last Admin: 08/28/17 18:09 Dose: 12 mg - Labs Labs: 08/29/17 07:00 08/29/17 07:00 PT 15.2 SECONDS (9.4-12.5) H 08/29/17 07:00 INR 1.33 (0.93-1.08) H 08/29/17 07:00 APTT 35.5 Seconds (25.1-36.5) 08/29/17 07:00 Attending/Attestation - Attestation I have personally seen and examined this patient.: Yes I have fully participated in the care of the patient.: Yes I have reviewed all pertinent clinical information, including history, physical exam and plan: Yes Notes (Text): 08/29/17 16:48 Attending note; Patient seen and examined with resident. 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 Proteus UTI; completed meropenem. patient apparently had rash and itching after antibiotics treatment. Possible red man with vancomycin. resolved after treated with antihistaminic. Currently no rash. Patient denied any shortness of breath or lip swelling or tongue swelling. Currently off all antibiotics. Repeat blood culture is negative since . Echocardiogram was negative for vegetations. Sacral decubitus; wound culture grew Corynebacterium and Proteus. s/p Debridement. Dressing done by surgery . OR culture showed showed pseudomonas and enterococcus. ID evaluation appreciated. No need for antibiotics anymore. Started on Lovenox and Coumadin. INR is 1.33. continue Coumadin. Continue colostomy care. Upon discharge the patient will follow up with PMD Dr. Dominguez.
[2017-08-30] MEDS: Pantoprazole 40 mg EC Tab PO SCH (06:56)
[2017-08-30 07:16] LABS: BASO # 0.01 K/mm3 (0.0-2.0); BASO % 0.2 % (0.0-3.0); EOS # 0.1 (0.0-0.7); EOS % 1.6 % (1.5-5.0); GRAN # 2.38 (1.4-6.5); GRAN % 55.4 % (50.0-68.0); HEMOGLOBIN 12.1 g/dL (14.0-18.0); LYMPH # 1.4 (1.2-3.4); MEAN CELL VOLUME 81.4 fl (80.0-105.0); MEAN CORPUSCULAR HEMOGLOBIN 25.9 pg (25.0-35.0); MEAN CORPUSCULAR HGB CONC 31.8 g/dl (31.0-37.0); MEAN PLATELET VOLUME 11.7 fl (7.0-11.0); MONO # 0.4 (0.1-0.6); MONO % 9.8 % (1.0-6.0); RBC 4.68 10^6/uL (3.5-6.1); RED CELL DISTRIBUTION WIDTH 16.1 % (11.5-14.5); WHITE BLOOD COUNT 4.3 10^3/ul (4.5-11.0)
[2017-08-30 07:27] LABS: INR 1.72 (0.93-1.08)
[2017-08-30 07:56] LABS: ALBUMIN 3.9 g/dL (3.0-4.8); ALT/SGPT 41 U/L (7-56); AST/SGOT 27 U/L (17-59); BLOOD UREA NITROGEN 24 mg/dL (7-21); CALCIUM 9.4 mg/dL (8.4-10.5); GFR AFRICAN-AMERICAN > 60; GFR NON-AFRICAN AMERICAN > 60
[2017-08-30] MEDS: Enoxaparin 100 mg Syringe SC SCH ×2 (08:42→21:35)
--- NOTE | 2017-08-30 12:06 | CP.PCM.PN ---
<Derek Keyes - Last Filed: 08/30/17 12:03> Subjective - Date & Time of Evaluation Date of Evaluation: 08/30/17 Time of Evaluation: 10:00 - Subjective Subjective: PGY1 Medicine Note for Dr. Piedra Patient seen and examined at bedside this morning. No acute events overnight. Patient is still in hospital awaiting his INR to become therapeutic. He has no complaints at this time. His reaction to his antibiotics two nights ago was believed to be "Red Man Syndrome" due to the Vancomycin. Patient is resting comfortably today and has no complaints. Denies fevers, chills, nausea, vomiting , chest pain, shortness of breath, palpitations, abdominal pain, headaches or diaphoresis. Objective - Vital Signs/Intake and Output Vital Signs (last 24 hours): Temp Pulse Resp BP Pulse Ox 98.2 F 90 20 120/76 98 08/30/17 07:47 08/30/17 07:47 08/30/17 07:47 08/30/17 07:47 08/30/17 07:47 Intake and Output: 08/30/17 08/30/17 06:59 18:59 Intake Total 620 Output Total 525 Balance 95 - Medications Medications: Current Medications Acetaminophen (Tylenol 325mg Tab) 650 mg PO Q6H PRN PRN Reason: Fever >100.4 F and pain (4-7) Last Admin: 08/29/17 20:00 Dose: 650 mg Ascorbic Acid (Vitamin C 500 Mg Tab) 500 mg PO DAILY [facility] Last Admin: 08/30/17 10:02 Dose: 500 mg Baclofen (Lioresal) 20 mg PO BID PRN PRN Reason: Pain, Mild (1-3) Last Admin: 08/30/17 10:02 Dose: 20 mg Diphenhydramine HCl (Benadryl) 50 mg PO Q8 PRN PRN Reason: Itching / Pruritus Last Admin: 08/28/17 21:44 Dose: 50 mg Enoxaparin Sodium (Lovenox) 100 mg SC Q12H [facility] PRN Reason: Protocol Last Admin: 08/30/17 08:42 Dose: 100 mg Gabapentin (Neurontin) 300 mg PO BID [facility] Last Admin: 08/30/17 10:02 Dose: 300 mg Hydroxyzine HCl (Atarax) 25 mg PO Q6H PRN PRN Reason: Itching / Pruritus Last Admin: 08/28/17 23:49 Dose: 25 mg Ondansetron HCl (Zofran Inj) 4 mg IVP Q4H PRN PRN Reason: Nausea/Vomiting Pantoprazole Sodium (Protonix Ec Tab) 40 mg PO 0600 [facility] Last Admin: 08/30/17 06:56 Dose: 40 mg Warfarin Sodium (Coumadin) 12 mg PO 1800 [facility] PRN Reason: Protocol Stop: 09/01/17 18:01 Last Admin: 08/29/17 17:05 Dose: 12 mg - Labs Labs: 08/30/17 07:00 08/30/17 07:00 PT 20.0 SECONDS (9.4-12.5) H 08/30/17 07:00 INR 1.72 (0.93-1.08) H 08/30/17 07:00 APTT 40.0 Seconds (25.1-36.5) H 08/30/17 07:00 - Constitutional Appears: Non-toxic, No Acute Distress - Head Exam Head Exam: ATRAUMATIC, NORMOCEPHALIC - Eye Exam Eye Exam: EOMI, Normal appearance - ENT Exam ENT Exam: Mucous Membranes Moist - Neck Exam Neck Exam: absent: Lymphadenopathy - Respiratory Exam Respiratory Exam: Clear to Ausculation Bilateral, NORMAL BREATHING PATTERN. absent: Accessory Muscle Use, Rales, Rhonchi, Wheezes, Respiratory Distress - Cardiovascular Exam Cardiovascular Exam: REGULAR RHYTHM, +S1, +S2 - GI/Abdominal Exam GI & Abdominal Exam: Soft. absent: Distended, Firm, Guarding, Rigid, Tenderness Additional comments: ostomy producing soft, light brown stool - Extremities Exam Additional comments: LE b/l slight contracted due to prior condition. Mild sensory LE b/l dressing in b/l buttock in place. 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 He is allergic to cephalosporin. He is currently awaiting for his INR to becoming therapeutic after it was stopped for sacral decub debridement. Plan: Stage 4 sacral decubitus ulcer b/l buttock Abscess at Right ischial Tuberosity POD#5 s/p wound debridement * packing/dressing changes daily by nursing probable skin and skin structure infection around R ischial tuberosity area - Wound culture 08/25: Pseudomonas aeruginosa, enterococcus faecalis - Vancomycin (started 08/28) - discontinued to erythema/reaction - believed to be Red Man syndrome and not true allergy. This was explained to patient. He states he understands. - Meropenom (started 08/21) - discontinued to erythema/reaction - follow up ID recommendations for new abx * Antibiotics are completed at this time. ID will continue to follow but no more abx at this time as he has had sufficient abx treatment (completed 7 days of Meropenom Vitamin C daily Baclofen Neurontin Wound care Air mattress Turn pt Q2H/positioning Catheter associated UTI, complicated - Afebrile; No leukocytosis - Urine cx (08/20) Proteus Mirabilis Benadryl PRN Tylenol PRN Zofran PRN Urology consult ID consult - Antibiotics are completed at this time. ID will continue to follow but no more abx at this time as he has had sufficient abx treatment. Hx of DVT - Lovenox to be continued - will continue until INR is therapeutic from Coumadin bridge - Coumadin 12mg again today - patient can be switched by to home dose of 7mg PO daily once therapeutic - INR 1.72 Initial Blood culture grew coagulase-negative staph, likely contamination - Repeat blood culture is negative since . - Echocardiogram was negative for vegetations. 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 He is still in the hospital due to a sub therapeutic INR. Once INR is >1.8 (preferably 2-3), patient can be discharged home on his previous home dose of Coumadin 7mg PO daily. Case discussed with Dr. Dorothea Reed Wali PGY1 <Tobin Piedra - Last Filed: 08/30/17 15:05> Objective - Vital Signs/Intake and Output Vital Signs (last 24 hours): Temp Pulse Resp BP Pulse Ox 98.2 F 90 20 120/76 98 08/30/17 07:47 08/30/17 07:47 08/30/17 07:47 08/30/17 07:47 08/30/17 07:47 Intake and Output: 08/30/17 08/30/17 06:59 18:59 Intake Total 620 Output Total 525 Balance 95 - Medications Medications: Current Medications Acetaminophen (Tylenol 325mg Tab) 650 mg PO Q6H PRN PRN Reason: Fever >100.4 F and pain (4-7) Last Admin: 08/29/17 20:00 Dose: 650 mg Ascorbic Acid (Vitamin C 500 Mg Tab) 500 mg PO DAILY [facility] Last Admin: 08/30/17 10:02 Dose: 500 mg Baclofen (Lioresal) 20 mg PO BID PRN PRN Reason: Pain, Mild (1-3) Last Admin: 08/30/17 10:02 Dose: 20 mg Diphenhydramine HCl (Benadryl) 50 mg PO Q8 PRN PRN Reason: Itching / Pruritus Last Admin: 08/28/17 21:44 Dose: 50 mg Enoxaparin Sodium (Lovenox) 100 mg SC Q12H [facility] PRN Reason: Protocol Last Admin: 08/30/17 08:42 Dose: 100 mg Gabapentin (Neurontin) 300 mg PO BID [facility] Last Admin: 08/30/17 10:02 Dose: 300 mg Hydroxyzine HCl (Atarax) 25 mg PO Q6H PRN PRN Reason: Itching / Pruritus Last Admin: 08/28/17 23:49 Dose: 25 mg Ondansetron HCl (Zofran Inj) 4 mg IVP Q4H PRN PRN Reason: Nausea/Vomiting Pantoprazole Sodium (Protonix Ec Tab) 40 mg PO 0600 [facility] Last Admin: 08/30/17 06:56 Dose: 40 mg Warfarin Sodium (Coumadin) 12 mg PO 1800 [facility] PRN Reason: Protocol Stop: 09/01/17 18:01 Last Admin: 08/29/17 17:05 Dose: 12 mg - Labs Labs: 08/30/17 07:00 08/30/17 07:00 PT 20.0 SECONDS (9.4-12.5) H 08/30/17 07:00 INR 1.72 (0.93-1.08) H 08/30/17 07:00 APTT 40.0 Seconds (25.1-36.5) H 08/30/17 07:00 Attending/Attestation - Attestation I have personally seen and examined this patient.: Yes I have fully participated in the care of the patient.: Yes I have reviewed all pertinent clinical information, including history, physical exam and plan: Yes Notes (Text): 08/30/17 15:03 Attending note; Patient seen and examined with resident. Patient is a 52 year old male with past medical history of paraplegia secondary to spinal abscess, chronic indwelling haque, DVT on coumadin, and stage 4 sacral decubitus ulcer who presented with lower abdominal pain. Proteus UTI; completed meropenem. Sacral decubitus; s/p Debridement. Dressing done by surgery . Started on Lovenox and Coumadin. INR is 1.72. continue Coumadin. Continue colostomy care. Possible discharge home tomorrow. Upon discharge the patient will follow up with PMD Dr. Dominguez.
--- NOTE | 2017-08-30 14:47 | PN ---
DATE: 08/30/2017 SUBJECTIVE: The patient is in bed in no acute distress, nontoxic. OBJECTIVE: VITAL SIGNS: Temperature is 97, blood pressure is 120/70, respirations 16. HEENT: Examination is unremarkable. NECK: Supple. LUNGS: Have decreased breath sounds. HEART: Normal S1, S2. ABDOMEN: Soft, nontender. DATA: White count of 4.3, hemoglobin is 12. Chemistries are noted. Review of medication reveals the patient to be off of antibiotics. ASSESSMENT AND PLAN: This is a 52-year-old male with complicated urinary tract infection and chronic indwelling catheter, Proteus and skin infection and ischial tuberosity area with a history of epidural abscess secondary to strep pneumonia, cord compression, lower extremity paralysis, neurogenic bladder, long-time smoker and had a questionable reaction to vancomycin versus meropenem, most likely vancomycin was given too fast; at this point, off of antibiotics. Afebrile. No further need for antibiotics at this time. We will follow with you. Colt Coronel MD
[2017-08-31] MEDS: Pantoprazole 40 mg EC Tab PO SCH (06:32)
[2017-08-31 07:05] LABS: INR 1.98 (0.93-1.08); PARTIAL THROMBOPLASTIN TIME 41.6 Seconds (25.1-36.5); PROTHROMBIN TIME 23.1 SECONDS (9.4-12.5)
[2017-08-31 08:27] VITALS: BP 127/72; PULSE 64; TEMP 97.6; O2SAT 100
[2017-08-31] MEDS: Enoxaparin 100 mg Syringe SC SCH (08:33)
--- NOTE | 2017-08-31 12:28 | CP.PCM.DIS ---
<Fina Guerrier - Last Filed: 08/31/17 15:09> Provider - Provider Date of Admission: 08/21/17 11:03 Attending physician: Tobin Piedra MD Consults: [facility] Time Spent in preparation of Discharge (in minutes): 45 Diagnosis - Discharge Diagnosis (1) Sacral decubitus ulcer Status: Chronic (2) Urinary tract infection Status: Acute Comment: complicated UTI Hospital Course - Lab Results Lab Results: Micro Results 08/25/17 09:40 Decubitus - Other-Put In Comments Gram Stain - Final 08/25/17 09:40 Decubitus - Other-Put In Comments Wound Culture - Final Pseudomonas Aeruginosa Enterococcus Faecalis 08/22/17 10:15 Blood Blood Culture - Final NO GROWTH AFTER 5 DAYS 08/22/17 10:15 Blood Gram Stain - Final TEST NOT PERFORMED 08/22/17 10:42 Blood Blood Culture - Final NO GROWTH AFTER 5 DAYS 08/22/17 10:42 Blood Gram Stain - Final TEST NOT PERFORMED Most Recent Lab Values WBC 4.3 10^3/ul (4.5-11.0) L 08/30/17 07:00 RBC 4.68 10^6/uL (3.5-6.1) 08/30/17 07:00 Hgb 12.1 g/dL (14.0-18.0) L 08/30/17 07:00 Hct 38.1 % (42.0-52.0) L 08/30/17 07:00 MCV 81.4 fl (80.0-105.0) 08/30/17 07:00 MCH 25.9 pg (25.0-35.0) 08/30/17 07:00 MCHC 31.8 g/dl (31.0-37.0) 08/30/17 07:00 RDW 16.1 % (11.5-14.5) H 08/30/17 07:00 Plt Count 165 10^3/uL (120.0-450.0) 08/30/17 07:00 MPV 11.7 fl (7.0-11.0) H 08/30/17 07:00 Gran % 55.4 % (50.0-68.0) 08/30/17 07:00 Lymph % (Auto) 33.0 % (22.0-35.0) 08/30/17 07:00 [place] % (Auto) 9.8 % (1.0-6.0) H 08/30/17 07:00 Eos % (Auto) 1.6 % (1.5-5.0) 08/30/17 07:00 Baso % (Auto) 0.2 % (0.0-3.0) 08/30/17 07:00 Gran # 2.38 (1.4-6.5) 08/30/17 07:00 Lymph # (Auto) 1.4 (1.2-3.4) 08/30/17 07:00 [place] # (Auto) 0.4 (0.1-0.6) 08/30/17 07:00 Eos # (Auto) 0.1 (0.0-0.7) 08/30/17 07:00 Baso # (Auto) 0.01 K/mm3 (0.0-2.0) 08/30/17 07:00 ESR 70 mm/hr (0.00-15.0) H 08/21/17 07:30 PT 23.1 SECONDS (9.4-12.5) H 08/31/17 06:20 INR 1.98 (0.93-1.08) H 08/31/17 06:20 APTT 41.6 Seconds (25.1-36.5) H 08/31/17 06:20 Sodium 143 mmol/L (132-148) 08/30/17 07:00 Potassium 4.3 mmol/L (3.6-5.0) 08/30/17 07:00 Chloride 104 mmol/L (98-107) 08/30/17 07:00 Carbon Dioxide 27 mmol/L (21-33) 08/30/17 07:00 Anion Gap 16 (10-20) 08/30/17 07:00 BUN 24 mg/dL (7-21) H 08/30/17 07:00 Creatinine 0.6 mg/dl (0.8-1.5) L 08/30/17 07:00 Est GFR ( Amer) > 60 08/30/17 07:00 Est GFR (Non-Af Amer) > 60 08/30/17 07:00 Random Glucose 97 mg/dL (70-110) 08/30/17 07:00 Calcium 9.4 mg/dL (8.4-10.5) 08/30/17 07:00 Total Bilirubin 0.1 mg/dL (0.2-1.3) L 08/30/17 07:00 AST 27 U/L (17-59) 08/30/17 07:00 ALT 41 U/L (7-56) 08/30/17 07:00 Alkaline Phosphatase 80 U/L (38-126) 08/30/17 07:00 C-Reactive Protein 47.30 mg/L (0.0-9.9) H 08/21/17 07:30 Total Protein 7.7 g/dL (5.8-8.3) 08/30/17 07:00 Albumin 3.9 g/dL (3.0-4.8) 08/30/17 07:00 Globulin 3.8 gm/dL 08/30/17 07:00 Albumin/Globulin Ratio 1.0 (1.1-1.8) L 08/30/17 07:00 Urine Color Yellow (YELLOW) 08/20/17 18:40 Urine Appearance Sl cloudy (CLEAR) 08/20/17 18:40 Urine pH 7.0 (4.7-8.0) 08/20/17 18:40 Ur Specific [place] 1.015 (1.005-1.035) 08/20/17 18:40 Urine Protein Trace mg/dL (<30 mg/dL) H 08/20/17 18:40 Urine Glucose (UA) Negative mg/dL (NEGATIVE) 08/20/17 18:40 Urine Ketones Negative mg/dL (NEGATIVE) 08/20/17 18:40 Urine Blood Moderate (NEGATIVE) H 08/20/17 18:40 Urine Nitrate Positive (NEGATIVE) H 08/20/17 18:40 Urine Bilirubin Negative (NEGATIVE) 08/20/17 18:40 Urine Urobilinogen 0.2 E.U./dL (<1 E.U./dL) 08/20/17 18:40 Ur Leukocyte Esterase Moderate Ang/uL (NEGATIVE) H 08/20/17 18:40 Urine RBC 10 - 15 /hpf (0-2) 08/20/17 18:40 Urine WBC 25 - 30 /hpf (0-6) 08/20/17 18:40 Urine Bacteria Few (NEG) 08/20/17 18:40 - Hospital Course Hospital Course: 52 year old male with a past medical history significant for 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 Pt found to have UTI, changed haque catheter. Sacral decub ulcer found to have an abscess, requiring drainage by surgery. Pt treated adequately with IV antibiotics as per Infectious Disease. Pt developed an erythematous skinr reaction, likely from rapid infusion of IV Vancomycin or Merrem. Pt restarted on Coumadin after sacral wound debridement, reached therapuetic level today. Pt discharged home on Coumadin for 15 days. Pt to follow up with PMD in 1 week. Pt to continue with home PT, haque and ostomy care. Case discussed with Dr Piedra. Discharge Exam - Head Exam Head Exam: ATRAUMATIC, NORMOCEPHALIC - Eye Exam Eye Exam: EOMI, PERRL. absent: Conjunctival injection, Nystagmus, Scleral icterus Pupil Exam: NORMAL ACCOMODATION, PERRL. absent: Irregular, Miosis, Unequal - ENT Exam ENT Exam: Mucous Membranes Moist - Neck Exam Neck exam: Full Rom - Respiratory Exam Respiratory Exam: Clear to PA & Lateral - Cardiovascular Exam Cardiovascular Exam: RRR, +S1, +S2. absent: Systolic Murmur - GI/Abdominal Exam GI & Abdominal Exam: Normal Bowel Sounds, Soft. absent: Distended, Firm, Guarding, Tenderness - Extremities Exam Extremities exam: normal inspection - Back Exam Back exam: NORMAL INSPECTION - Neurological Exam Neurological exam: Alert, Oriented x3 - Psychiatric Exam Psychiatric exam: Normal Affect, Normal Mood - Skin Skin Exam: Dry, Normal Color, Warm Discharge Plan - Discharge Medications Prescriptions: Baclofen [Lioresal] 20 mg PO BID #60 tab Warfarin [Coumadin] 7 mg PO DAILY #15 tab - Follow Up Plan Condition: FAIR Disposition: HOME/ ROUTINE Instructions: How to Care for Your Ostomy, Adult, How to Care for Your Haque Catheter, Male, Wound Care (DC), Vancomycin-Resistant Enterococci (DC), Multidrug Resistant Organisms (DC) Additional Instructions: Continue colostomy care. Continue physical therapy. Upon discharge the patient will follow up with PMD Dr. Dominguez. Wound care, Haque and ostomy care as per instructions. Referrals: Ishan Dominguez MD [Staff Provider] - Trever Askew MD [Staff Provider] - <Tobin Piedra - Last Filed: 08/31/17 16:15> Provider - Provider Date of Admission: 08/21/17 11:03 Attending physician: Tobin Piedra MD Hospital Course - Lab Results Lab Results: Micro Results 08/25/17 09:40 Decubitus - Other-Put In Comments Gram Stain - Final 08/25/17 09:40 Decubitus - Other-Put In Comments Wound Culture - Final Pseudomonas Aeruginosa Enterococcus Faecalis 08/22/17 10:15 Blood Blood Culture - Final NO GROWTH AFTER 5 DAYS 08/22/17 10:15 Blood Gram Stain - Final TEST NOT PERFORMED 08/22/17 10:42 Blood Blood Culture - Final NO GROWTH AFTER 5 DAYS 08/22/17 10:42 Blood Gram Stain - Final TEST NOT PERFORMED Most Recent Lab Values WBC 4.3 10^3/ul (4.5-11.0) L 08/30/17 07:00 RBC 4.68 10^6/uL (3.5-6.1) 08/30/17 07:00 Hgb 12.1 g/dL (14.0-18.0) L 08/30/17 07:00 Hct 38.1 % (42.0-52.0) L 08/30/17 07:00 MCV 81.4 fl (80.0-105.0) 08/30/17 07:00 MCH 25.9 pg (25.0-35.0) 08/30/17 07:00 MCHC 31.8 g/dl (31.0-37.0) 08/30/17 07:00 RDW 16.1 % (11.5-14.5) H 08/30/17 07:00 Plt Count 165 10^3/uL (120.0-450.0) 08/30/17 07:00 MPV 11.7 fl (7.0-11.0) H 08/30/17 07:00 Gran % 55.4 % (50.0-68.0) 08/30/17 07:00 Lymph % (Auto) 33.0 % (22.0-35.0) 08/30/17 07:00 Hooker % (Auto) 9.8 % (1.0-6.0) H 08/30/17 07:00 Eos % (Auto) 1.6 % (1.5-5.0) 08/30/17 07:00 Baso % (Auto) 0.2 % (0.0-3.0) 08/30/17 07:00 Gran # 2.38 (1.4-6.5) 08/30/17 07:00 Lymph # (Auto) 1.4 (1.2-3.4) 08/30/17 07:00 [place]er # (Auto) 0.4 (0.1-0.6) 08/30/17 07:00 Eos # (Auto) 0.1 (0.0-0.7) 08/30/17 07:00 Baso # (Auto) 0.01 K/mm3 (0.0-2.0) 08/30/17 07:00 ESR 70 mm/hr (0.00-15.0) H 08/21/17 07:30 PT 23.1 SECONDS (9.4-12.5) H 08/31/17 06:20 INR 1.98 (0.93-1.08) H 08/31/17 06:20 APTT 41.6 Seconds (25.1-36.5) H 08/31/17 06:20 Sodium 143 mmol/L (132-148) 08/30/17 07:00 Potassium 4.3 mmol/L (3.6-5.0) 08/30/17 07:00 Chloride 104 mmol/L (98-107) 08/30/17 07:00 Carbon Dioxide 27 mmol/L (21-33) 08/30/17 07:00 Anion Gap 16 (10-20) 08/30/17 07:00 BUN 24 mg/dL (7-21) H 08/30/17 07:00 Creatinine 0.6 mg/dl (0.8-1.5) L 08/30/17 07:00 Est GFR ( Amer) > 60 08/30/17 07:00 Est GFR (Non-Af Amer) > 60 08/30/17 07:00 Random Glucose 97 mg/dL (70-110) 08/30/17 07:00 Calcium 9.4 mg/dL (8.4-10.5) 08/30/17 07:00 Total Bilirubin 0.1 mg/dL (0.2-1.3) L 08/30/17 07:00 AST 27 U/L (17-59) 08/30/17 07:00 ALT 41 U/L (7-56) 08/30/17 07:00 Alkaline Phosphatase 80 U/L (38-126) 08/30/17 07:00 C-Reactive Protein 47.30 mg/L (0.0-9.9) H 08/21/17 07:30 Total Protein 7.7 g/dL (5.8-8.3) 08/30/17 07:00 Albumin 3.9 g/dL (3.0-4.8) 08/30/17 07:00 Globulin 3.8 gm/dL 08/30/17 07:00 Albumin/Globulin Ratio 1.0 (1.1-1.8) L 08/30/17 07:00 Urine Color Yellow (YELLOW) 08/20/17 18:40 Urine Appearance Sl cloudy (CLEAR) 08/20/17 18:40 Urine pH 7.0 (4.7-8.0) 08/20/17 18:40 Ur Specific [place] 1.015 (1.005-1.035) 08/20/17 18:40 Urine Protein Trace mg/dL (<30 mg/dL) H 08/20/17 18:40 Urine Glucose (UA) Negative mg/dL (NEGATIVE) 08/20/17 18:40 Urine Ketones Negative mg/dL (NEGATIVE) 08/20/17 18:40 Urine Blood Moderate (NEGATIVE) H 08/20/17 18:40 Urine Nitrate Positive (NEGATIVE) H 08/20/17 18:40 Urine Bilirubin Negative (NEGATIVE) 08/20/17 18:40 Urine Urobilinogen 0.2 E.U./dL (<1 E.U./dL) 08/20/17 18:40 Ur Leukocyte Esterase Moderate Ang/uL (NEGATIVE) H 08/20/17 18:40 Urine RBC 10 - 15 /hpf (0-2) 08/20/17 18:40 Urine WBC 25 - 30 /hpf (0-6) 08/20/17 18:40 Urine Bacteria Few (NEG) 08/20/17 18:40 Attending/Attestation - Attestation I have personally seen and examined this patient.: Yes I have fully participated in the care of the patient.: Yes I have reviewed all pertinent clinical information, including history, physical exam and plan: Yes Notes (Text): 08/31/17 16:14 Attending note; Patient seen and examined with resident. Patient is a 52 year old male with past medical history of paraplegia secondary to spinal abscess, chronic indwelling haque, DVT on coumadin, and stage 4 sacral decubitus ulcer who presented with lower abdominal pain. Proteus UTI; completed meropenem. Sacral decubitus; s/p Debridement. Dressing done by surgery . Started on Lovenox and Coumadin. INR is 1.98. continue Coumadin. Continue colostomy care. Discharge home today. Upon discharge the patient will follow up with PMD Dr. Dominguez.
--- NOTE | 2017-08-31 13:08 | CP.PCM.PN ---
Subjective - Date & Time of Evaluation Date of Evaluation: 08/31/17 Time of Evaluation: 12:00 - Subjective Subjective: No dysuria, no pain on the right hip. No fevers. Objective - Vital Signs/Intake and Output Vital Signs (last 24 hours): Temp Pulse Resp BP Pulse Ox 97.6 F 64 20 127/72 100 08/31/17 06:00 08/31/17 06:00 08/31/17 06:00 08/31/17 06:00 08/31/17 06:00 Intake and Output: 08/31/17 08/31/17 06:59 18:59 Intake Total 1380 Output Total 1575 Balance -195 - Medications Medications: Current Medications Acetaminophen (Tylenol 325mg Tab) 650 mg PO Q6H PRN PRN Reason: Fever >100.4 F and pain (4-7) Last Admin: 08/31/17 06:45 Dose: 650 mg Ascorbic Acid (Vitamin C 500 Mg Tab) 500 mg PO DAILY [facility] Last Admin: 08/31/17 09:16 Dose: 500 mg Baclofen (Lioresal) 20 mg PO BID PRN PRN Reason: Pain, Mild (1-3) Last Admin: 08/31/17 08:27 Dose: 20 mg Diphenhydramine HCl (Benadryl) 50 mg PO Q8 PRN PRN Reason: Itching / Pruritus Last Admin: 08/28/17 21:44 Dose: 50 mg Enoxaparin Sodium (Lovenox) 100 mg SC Q12H DONAL PRN Reason: Protocol Last Admin: 08/31/17 08:33 Dose: 100 mg Gabapentin (Neurontin) 300 mg PO BID [facility] Last Admin: 08/31/17 09:16 Dose: 300 mg Hydroxyzine HCl (Atarax) 25 mg PO Q6H PRN PRN Reason: Itching / Pruritus Last Admin: 08/28/17 23:49 Dose: 25 mg Ondansetron HCl (Zofran Inj) 4 mg IVP Q4H PRN PRN Reason: Nausea/Vomiting Pantoprazole Sodium (Protonix Ec Tab) 40 mg PO 0600 [facility] Last Admin: 08/31/17 06:32 Dose: 40 mg Warfarin Sodium (Coumadin) 12 mg PO 1800 [facility] PRN Reason: Protocol Stop: 09/01/17 18:01 Last Admin: 08/30/17 17:20 Dose: 12 mg - Labs Labs: 08/30/17 07:00 08/30/17 07:00 PT 23.1 SECONDS (9.4-12.5) H 08/31/17 06:20 INR 1.98 (0.93-1.08) H 08/31/17 06:20 APTT 41.6 Seconds (25.1-36.5) H 08/31/17 06:20 - Constitutional Appears: Non-toxic, Chronically Ill - Head Exam Head Exam: NORMAL INSPECTION - Neck Exam Neck Exam: absent: Meningismus - Respiratory Exam Respiratory Exam: Decreased Breath Sounds - Cardiovascular Exam Cardiovascular Exam: +S1, +S2 - GI/Abdominal Exam GI & Abdominal Exam: Soft. absent: Tenderness Assessment and Plan - Assessment and Plan (Free Text) Plan: Assessment S/P complicated UTI with chronic indwelling Mackenzie catheter with Proteus S/P skin and skin structure infection around the ischial tuberosity area with decubitus ulcer S/P debridement history of sacral decubitus infection S/P debridement, grew Proteus S/P colostomy history of epidural abscess secondary to Strep pneumoniae with associated cord compression and lower extremity paralysis and neurogenic bladder S/P neurosurgery for abscess drainage and laminectomy history of partial small bowel obstruction significant smoking history alcohol abuse Plan monitor the patient off antibiotics since he is at risk for infection - patient should follow up with surgery as an outpatient
== END 2017-08-31 14:43 | disposition home or self-care (01) | DRG 581 ==
LOC: ED 17:17 → ERH 22:12 → 5RSO 08-21 02:06 → OBSVTOIN 08-21 11:03
PROVIDERS: ADMIT Internal Medicine; ATTEND Internal Medicine
PROC: 0QB20ZZ Excision of Right Pelvic Bone, Open Approach (ICD-10-PCS; principal; 2017-08-26)
DX: A41.59 Other Gram-negative sepsis (principal); L89.154 Pressure ulcer of sacral region, stage 4; L89.312 Pressure ulcer of right buttock, stage 2; B96.4 Proteus (mirabilis) (morganii) as the cause of diseases classified elsewhere; E11.69 Type 2 diabetes mellitus with other specified complication; K56.600 Partial intestinal obstruction, unspecified as to cause; N31.9 Neuromuscular dysfunction of bladder, unspecified; N39.0 Urinary tract infection, site not specified; G82.20 Paraplegia, unspecified; I10 Essential (primary) hypertension; L08.9 Local infection of the skin and subcutaneous tissue, unspecified; M86.9 Osteomyelitis, unspecified; Z79.01 Long term (current) use of anticoagulants; Z86.61 Personal history of infections of the central nervous system; Z86.718 Personal history of other venous thrombosis and embolism; Z87.891 Personal history of nicotine dependence; Z88.1 Allergy status to other antibiotic agents; Z93.3 Colostomy status

== ENCOUNTER 2017-09-17 19:03 | Emergency (ER) | payer OTHER ==
[2017-09-17 19:03] VITALS: BMI 27.5
[2017-09-17 19:13] VITALS: RESP 18
--- NOTE | 2017-09-17 19:35 | ED PDOC ---
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 Reports his niece replaced the haque at around 8AM, no output for approximately 9 hours, started to have output in last 2 hours prior to presentation but minimal and very cloudy, so pt was concerned for repeat UTI ( last admitted 08/20-08/31 for UTI) and possible urinary retention. Also reports concern that right thigh has become acutely swollen in last several days, concerned given hx of prior DVT. Reports still on nightly Coumadin, 7mg, compliant with regimen and with all other home medications. Denies chest pain, shortness of breath, fever, chills, nausea, emesis, or abnormal colostomy output. Unable to feel pain in legs due to paraplegia, so unable to state if painful swelling of R thigh. All other ROS in 12-system review negative. PMH: As stated above PSH: Laminectomy, Colostomy Family History: Non-contributory Social History: Former smoker (quit 1 year ago, ~20 pack year hx), denies alcohol/illicits PMD: Dr. Ishan Dominguez Time/Duration: Other (~12 hours) Symptom Onset: Sudden Symptom Course: Improving (no output, now mildly increased output) Activities at Onset: Rest Past Medical History - Provider Review Nursing Documentation Reviewed: Yes - Infectious Disease Hx of Infectious Diseases: None - Cardiac Hx Hypertension: Yes - Pulmonary Hx Respiratory Disorders: No - Neurological Hx Neurological Disorder: Yes Other/Comment: paraplegic - HEENT Hx HEENT Disorder: No - Renal Hx Renal Disorder: No - Endocrine/Metabolic Hx Endocrine Disorders: No - Hematological/Oncological Hx Blood Transfusions: Yes Hx Blood Transfusion Reaction: No - Integumentary Hx Dermatological Disorder: Yes Other/Comment: 05-26-17 PRESSURE SACRAL ULCER-HEALING WOUND BUT HAS 2 OPEN WOUND STAGE 2 1 CM IN DM. RIGHT BUTTOCK PRESSURE ULCER WITH OPEN WOUND SMOOTH EDGES, WOUND VAC AT HOME,NON HEALING WOUND.DEPTH OF 5 CM WITH INDURATION OF 3.5 AT 12 OCLOCK.WOUND BED HAS MOIST BLACK FILM NECROTIC TISSUE. LEFT HEEL HAS A PRESSURE ULCER BLACKENED NECROTIC TISSUE COVERING WHOLE WOUND.MEASURES 3 X 4 CM. - Musculoskeletal/Rheumatological Hx Falls: No - Gastrointestinal Hx Gastrointestinal Disorders: Yes (COLOSTOMY LEFT.) Hx Colostomy: Yes - Genitourinary/Gynecological Hx Genitourinary Disorders: Yes Hx Incontinence: Yes Other/Comment: has haque and diaper - Psychiatric Hx Psychophysiologic Disorder: No Hx Substance Use: No - Surgical History Other/Comment: colostomy bag - Anesthesia Hx Anesthesia Reactions: No Hx Malignant Hyperthermia: No Family/Social History - Physician Review Nursing Documentation Reviewed: Yes Family/Social History: No Known Family HX Smoking Status: Former Smoker Hx Alcohol Use: No Hx Substance Use: No Allergies/Home Meds Allergies/Adverse Reactions: Allergies ceftriaxone [From Rocephin] Adverse Reaction (Mild, Verified 08/20/17 18:07) BURNING AT IV SITE BURNING/ITCHING AT IV SITE; NOT GENERALIZED RASH Cephalosporins Adverse Reaction (Mild, Verified 08/20/17 18:07) BURNING AT IV SITE LOCALIZED BURNING/ITCHING AT IV SITE; NOT GENERALIZED RASH Review of Systems - Physician Review All systems were reviewed & negative as marked: Yes (as per HPI) - Review of Systems Constitutional: Normal. absent: Fatigue, Fevers ENT: Normal. absent: Sore Throat, Rhinorrhea Respiratory: Normal. absent: SOB, Cough Cardiovascular: Normal. absent: Chest Pain, Palpitations Gastrointestinal: Normal, Other (no change in colostomy output). absent: Abdominal Pain, Nausea, Vomiting Genitourinary Male: Other (decreased urine output via haque x8-9 hours, then minimal and cloudy concerning for UTI). absent: Normal, Hematuria Musculoskeletal: Other (paraplegic, unable to sense or use legs, unable to determine in painful). absent: Normal Skin: Other (Sacral decub ulcer (s/p surgical revision at last admission)) Neurological: Normal. absent: Headache, Dizziness, Focal Weakness Endocrine: Normal. absent: Diaphoresis Physical Exam Vital Signs Reviewed: Yes Vital Signs Temp Pulse Resp BP Pulse Ox 09/17/17 22:36 65 18 139/78 99 09/17/17 19:22 137/51 L 09/17/17 19:12 97.7 F 74 18 98 Temperature: Afebrile Blood Pressure: Normal Pulse: Regular Respiratory Rate: Normal Appearance: Positive for: Non-Toxic, Comfortable, Ill-Appearing Pain Distress: None Mental Status: Positive for: Alert and Oriented X 3 - Systems Exam Head: Present: Atraumatic, Normocephalic. No: Ecchymosis, Abrasion, Laceration Pupils: No: Pinpoint Conjunctiva: Present: Normal. No: Injected, Icteric Mouth: Present: Moist Mucous Membranes. No: Dry, Drooling Nose (External): Present: Atraumatic. No: Abrasion, Laceration Nose (Internal): Present: No Active Bleeding. No: Epistaxis Neck: Present: Normal Range of Motion. No: JVD Respiratory/Chest: Present: Clear to Auscultation, Good Air Exchange. No: Respiratory Distress, Accessory Muscle Use, Wheezes, Decreased Breath Sounds, Rales, Rhonchi, Tachypneic, Tender to Palpation Cardiovascular: Present: Regular Rate and Rhythm, Normal S1, S2, Peripheal Pulses Present (+2 radials, +1 dorsalis pedis bilaterally). No: Murmurs, Irregular Rhythm, Tachycardic, Bradycardic Abdomen: Present: Normal Bowel Sounds, Ostomy Tubes (ostomy bag with no output at mid-epigastric region, ostomy appears pinkish). No: Tenderness, Distention Genitourinary Male: Present: Other (chronic haque in place, minimal but active output appreciated, cloudy urine < 100cc in haque bag, no hematuria appreciated) Upper Extremity: Present: Normal Inspection, Normal ROM, NORMAL PULSES. No: Cyanosis, Edema, Tenderness, Swelling, Erythema, Deformity Lower Extremity: Present: Swelling, Other (paraplegic, unable to mobilize LE, and no sensation; R thigh swollen as compared to L but not pitting edema, LE symmetric size bilaterally below knees) Neurological: Present: Other (motor and sensory function above waistline grossly intact, no voluntary motor activity and no sensory function below waist 2/2 paraplegia) Skin: Present: Warm, Dry, Normal Color, Other (healing sacral decubitus ulcer) Psychiatric: Present: Alert, Oriented x 3, Normal Insight, Normal Concentration , Normal Affect, Normal Mood Medical Decision Making ED Course and Treatment: 09/17/17 19:35 Ddx: Misplaced haque vs UTI, DVT through anticoagulation vs swelling 2/2 stasis PT/PTT ordered to assess degree of anticoagulation Bladder scan to rule out retention, then will replace haque with new one UA from new haque output CBC/CMP to assess for infectious or metabolic process LE Duplex to rule out DVT F/u and Dispo 09/17/17 20:49 Bladder scan negative for retention, new haque placed, pending UA after sufficient output 09/17/17 22:29 UA notable for 15-20 WBCs and elevated leuk esterase, but negative nitrates and minimal bacterial, some mucous Likely blockage 2/2 mucous plug, continues to put out clear yellow urine in new haque Labs not indicative of infectious process, no leukocytosis, remains afebrile, hemodynamically stable INR 2.5, within normal range for anticoagulation; Duplex negative for DVT bilaterally No UTI present, no DVT, continue home medications and Coumadin regimen. Explained results to patient, who expressed understanding and agreement. Reviewed haque care with patient, including removal prior to flushing significant plugs. Patient expressed understanding. Discharged to home, [facility] ambulance service notified for transport. Seen, reviewed, and discussed with attendings, Dr. Lobato and Dr. Au Reassessment Condition: Re-examined, Improved (consistently clear yellow urine in new haque) - Lab Interpretations Lab Results: 09/17/17 20:37 09/17/17 20:42 Lab Results 09/17/17 20:42: PT 30.0 H, INR 2.58 H, APTT 43.5 H 09/17/17 20:42: Sodium 144, Potassium 4.0, Chloride 105, Carbon Dioxide 27, Anion Gap 16, BUN 23 H, Creatinine 0.7 L, Est GFR ( Amer) > 60, Est GFR ( Non-Af Amer) > 60, Random Glucose 94, Calcium 9.3, Total Bilirubin 0.6, AST 16 L D, ALT 26, Alkaline Phosphatase 77, Total Protein 8.1, Albumin 4.0, Globulin 4.1, Albumin/Globulin Ratio 1.0 L 09/17/17 20:42: Urine Color Yellow, Urine Appearance Cloudy, Urine pH 6.0, Ur Specific Flushing >= 1.030, Urine Protein 100 H, Urine Glucose (UA) Negative, Urine Ketones Trace H, Urine Blood Moderate H, Urine Nitrate Negative, Urine Bilirubin Negative, Urine Urobilinogen 0.2, Ur Leukocyte Esterase Large H, Urine RBC 1 - 3, Urine WBC 15 - 20, Ur Epithelial Cells None, Urine Bacteria Trace, Urine Other Mucus 09/17/17 20:37: WBC 9.5 D, RBC 4.63, Hgb 12.2 L, Hct 37.5 L, MCV 81.0, MCH 26.3 , MCHC 32.5, RDW 16.2 H, Plt Count 193, MPV 11.9 H, Gran % 69.4 H, Lymph % (Auto ) 16.9 L, [place] % (Auto) 12.1 H, Eos % (Auto) 1.5, Baso % (Auto) 0.1, Gran # 6.57 H, Lymph # (Auto) 1.6, [place] # (Auto) 1.2 H, Eos # (Auto) 0.1, Baso # (Auto ) 0.01 - RAD Interpretation Radiology Orders: 09/17/17 20:06 DUPLEX LOWER EXTRM VEIN BILAT [US] Stat Disposition/Present on Arrival - Present on Arrival Any Indicators Present on Arrival: Yes History of DVT/PE: Yes History of Uncontrolled Diabetes: No Urinary Catheter: Yes History of Decub. Ulcer: Yes History Surgical Site Infection Following: None - Disposition Have Diagnosis and Disposition been Completed?: Yes Diagnosis: Obstructed Haque catheter, Paraplegia Disposition: HOME/ ROUTINE Disposition Time: 00:33 Patient Plan: Discharge Patient Problems: Current Active Problems Problem Status Onset Obstruction of Haque catheter Acute Condition: FAIR Discharge Instructions (ExitCare): How to Care for Your Haque Catheter, Male Additional Instructions: SHYAM ORTEGA, thank you for letting us take care of you today. Your providers were Dr. Lobato, Dr. Au, and Dr. Lyle, and you were treated for URINE RETENTION. The emergency medical care you received today was directed at your acute symptoms. If you were prescribed any medication, please fill it and take as directed. It may take several days for your symptoms to resolve. Return to the Emergency Department if your symptoms worsen, do not improve, or if you have any other problems. Please call and make an appointment with Dr. Dominguez within 1-2 weeks of being seen in the ED. Bring any paperwork you were given at discharge with you along with any medications you are taking to your follow up visit. Our treatment cannot replace ongoing medical care by a primary care provider outside of the emergency department. Thank you for allowing the [facility] team to be part of your care today. If you had an X-Ray or CT scan: A Radiologist will review the ED reading if any change in treatment is needed we will contact you. If you had a blood, urine, or wound culture: It will take several days for the results, if any change in treatment is needed we will contact you. If you had an STI test: It will take 48 hours for the results. Please call after 1 week if you have not heard back. Referrals: Ishan Dominguez MD [Primary Care Provider] - Follow up with primary Forms: [employer] (Samoan)
[2017-09-17 20:46] LABS: BASO # 0.01 K/mm3 (0.0-2.0); BASO % 0.1 % (0.0-3.0); EOS # 0.1 (0.0-0.7); EOS % 1.5 % (1.5-5.0); GRAN # 6.57 (1.4-6.5); GRAN % 69.4 % (50.0-68.0); HEMOGLOBIN 12.2 g/dL (14.0-18.0); LYMPH # 1.6 (1.2-3.4); LYMPH % 16.9 % (22.0-35.0); MEAN CORPUSCULAR HEMOGLOBIN 26.3 pg (25.0-35.0); MEAN CORPUSCULAR HGB CONC 32.5 g/dl (31.0-37.0); MEAN PLATELET VOLUME 11.9 fl (7.0-11.0); MONO # 1.2 (0.1-0.6); MONO % 12.1 % (1.0-6.0); RBC 4.63 10^6/uL (3.5-6.1); RED CELL DISTRIBUTION WIDTH 16.2 % (11.5-14.5); WHITE BLOOD COUNT 9.5 10^3/ul (4.5-11.0)
[2017-09-17 21:43] LABS: URINE BILIRUBIN NEGATIVE (NEGATIVE); URINE BLOOD MODERATE (NEGATIVE); URINE GLUCOSE (UA) NEGATIVE (NEGATIVE); URINE LEUKOCYTE ESTERASE LARGE Leu/uL (NEGATIVE); URINE PROTEIN 100 mg/dL (<30 mg/dL); URINE UROBILINOGEN 0.2 E.U./dL (<1 E.U./dL)
[2017-09-17 21:44] LABS: URINE APPEARANCE CLOUDY (CLEAR); URINE COLOR YELLOW (YELLOW)
[2017-09-17 21:46] LABS: ALT/SGPT 26 U/L (7-56); AST/SGOT 16 U/L (17-59); BLOOD UREA NITROGEN 23 mg/dL (7-21); CALCIUM 9.3 mg/dL (8.4-10.5); GFR AFRICAN-AMERICAN > 60; GFR NON-AFRICAN AMERICAN > 60
[2017-09-17 21:49] LABS: INR 2.58 (0.93-1.08); PARTIAL THROMBOPLASTIN TIME 43.5 Seconds (25.1-36.5)
[2017-09-17 21:54] LABS: URINE BACTERIA TRACE (NEG); URINE WBC 15 - 20 /hpf (0-6)
[2017-09-17 22:37] VITALS: O2SAT 99
[2017-09-18 01:05] VITALS: BP 117/67; PULSE 60; TEMP 98.8
--- NOTE | 2017-09-18 17:18 | US ---
HISTORY: Leg pain and swelling. Evaluate for DVT PHYSICIAN(S): Pradeep Monsalve MD. TECHNIQUE: Duplex sonography and color-flow Doppler with graded compression were used to evaluate the deep venous systems of both lower extremities. The exam is very limited by the patient's inability to move and edema FINDINGS: The visualized deep venous systems of both lower extremities are sonographically normal and compressible. Normal wave forms and augmentation are seen. There is no sonographic evidence for deep venous thrombosis in the visualized segments of both lower extremities. IMPRESSION: No sonographic evidence for deep venous thrombosis in the visualized segments of both lower extremities. Very limited study
== END 2017-09-18 01:26 | disposition home or self-care (01) ==
LOC: ED 19:03
DX: T83.091A Other mechanical complication of indwelling urethral catheter, initial encounter (principal); G82.20 Paraplegia, unspecified; I10 Essential (primary) hypertension; Z87.891 Personal history of nicotine dependence

== ENCOUNTER 2017-10-19 20:28 | Inpatient (IN) | payer OTHER ==
[2017-10-19 20:50] VITALS: BMI 28.7
--- NOTE | 2017-10-19 20:57 | ED PDOC ---
Arrival/HPI - General Chief Complaint: Abnormal Skin Integrity Time Seen by Provider: 10/19/17 20:36 Historian: Patient - History of Present Illness Narrative History of Present Illness (Text): 10/19/17 20:54 52 year old male, whose past medical history includes being paraplegic and an ileostomy in place, who presented to the Emergency department complaining of a bed sore in the sacral area. Patient's brother tried to care for the bed sore for several days with no improvement. Patient denies any fever, chills, chest pain, shortness of breath, nausea, vomiting, diarrhea, back pain, neck pain, headache, dizziness, Or any other complaints. Symptom Onset: Gradual Symptom Course: Unchanged Activities at Onset: Light Context: Home Past Medical History - Provider Review Nursing Documentation Reviewed: Yes - Infectious Disease Hx of Infectious Diseases: None - Cardiac Hx Hypertension: Yes - Pulmonary Hx Respiratory Disorders: No - Neurological Hx Neurological Disorder: Yes Other/Comment: paraplegic - HEENT Hx HEENT Disorder: No - Renal Hx Renal Disorder: No - Endocrine/Metabolic Hx Endocrine Disorders: No - Hematological/Oncological Hx Blood Transfusions: Yes Hx Blood Transfusion Reaction: No - Integumentary Hx Dermatological Disorder: Yes Other/Comment: 05-26-17 PRESSURE SACRAL ULCER-HEALING WOUND BUT HAS 2 OPEN WOUND STAGE 2 1 CM IN DM. RIGHT BUTTOCK PRESSURE ULCER WITH OPEN WOUND SMOOTH EDGES, WOUND VAC AT HOME,NON HEALING WOUND.DEPTH OF 5 CM WITH INDURATION OF 3.5 AT 12 OCLOCK.WOUND BED HAS MOIST BLACK FILM NECROTIC TISSUE. LEFT HEEL HAS A PRESSURE ULCER BLACKENED NECROTIC TISSUE COVERING WHOLE WOUND.MEASURES 3 X 4 CM. - Musculoskeletal/Rheumatological Hx Falls: No - Gastrointestinal Hx Gastrointestinal Disorders: Yes (COLOSTOMY LEFT.) Hx Colostomy: Yes - Genitourinary/Gynecological Hx Genitourinary Disorders: Yes Hx Incontinence: Yes Other/Comment: has haque and diaper - Psychiatric Hx Psychophysiologic Disorder: No Hx Substance Use: No - Surgical History Other/Comment: colostomy bag - Anesthesia Hx Anesthesia Reactions: No Hx Malignant Hyperthermia: No Family/Social History - Physician Review Nursing Documentation Reviewed: Yes Family/Social History: Unknown Family HX Smoking Status: Former Smoker Hx Alcohol Use: No Hx Substance Use: No Allergies/Home Meds Allergies/Adverse Reactions: Allergies ceftriaxone [From Rocephin] Adverse Reaction (Mild, Verified 08/20/17 18:07) BURNING AT IV SITE BURNING/ITCHING AT IV SITE; NOT GENERALIZED RASH Cephalosporins Adverse Reaction (Mild, Verified 08/20/17 18:07) BURNING AT IV SITE LOCALIZED BURNING/ITCHING AT IV SITE; NOT GENERALIZED RASH vancomycin Adverse Reaction (Verified 10/20/17 14:02) ITCHING Review of Systems - Physician Review All systems were reviewed & negative as marked: Yes - Review of Systems Constitutional: Normal Eyes: Normal ENT: Normal Respiratory: Normal. absent: SOB, Cough Cardiovascular: Normal. absent: Chest Pain Gastrointestinal: Normal. absent: Abdominal Pain, Diarrhea, Nausea, Vomiting Genitourinary Male: Normal. absent: Dysuria, Frequency Musculoskeletal: Normal. absent: Back Pain, Neck Pain Skin: Other (Bed sore in sacral area). absent: Rash Neurological: Normal. absent: Headache, Dizziness Endocrine: Normal Hemo/Lymphatic: Normal Psychiatric: Normal Physical Exam Vital Signs Temp Pulse Resp BP Pulse Ox 10/19/17 23:40 98.2 F 64 20 101/52 L 10/19/17 23:30 20 99 10/19/17 22:14 98.9 F 63 18 112/66 100 - Systems Exam Head: Present: Atraumatic, Normocephalic Pupils: Present: PERRL Extroacular Muscles: Present: EOMI Conjunctiva: Present: Normal Mouth: Present: Moist Mucous Membranes Neck: Present: Normal Range of Motion Respiratory/Chest: Present: Clear to Auscultation, Good Air Exchange. No: Respiratory Distress, Accessory Muscle Use Cardiovascular: Present: Regular Rate and Rhythm, Normal S1, S2. No: Murmurs Abdomen: Present: Other (prolapsed ileostomy). No: Tenderness, Distention, Peritoneal Signs Back: Present: Other (stage 4 sacral are bed sore that is weeping fluid. ) Upper Extremity: Present: Normal Inspection. No: Cyanosis, Edema Lower Extremity: Present: Normal Inspection. No: Edema Neurological: Present: GCS=15, CN II-XII Intact, Speech Normal Skin: Present: Warm, Dry, Normal Color. No: Rashes Psychiatric: Present: Alert, Oriented x 3, Normal Insight, Normal Concentration Medical Decision Making ED Course and Treatment: 10/19/17 21:01 Impression: 52 year old male presents to the Emergency department complaining of a bed sore for several days. Plan: -- Reassess and disposition Progress Notes: - Medication Orders Current Medication Orders: Acetaminophen (Tylenol 325mg Tab) 650 mg PO Q6H PRN PRN Reason: Other Last Admin: 10/27/17 04:02 Dose: 650 mg BANNER Pain/Vitals Document 10/27/17 04:02 PCO (Rec: 10/27/17 04:03 PCO [place] [id number]) Pain Reassessment Is This A Pain ReAssessment? No Sleep Is patient sleeping during reassessment? No Presence of Pain Presence of Pain Yes Pain Scale Used Pain Scale Used Numeric Location Upper or Lower Lower Pain Location Body Site Back Description Intermittent Intensity 7 Scale Used Numeric Pain Behavior Moaning Facial Grimacing Re-Assess: BANNER Pain/Vitals Document 10/27/17 07:00 MJO (Rec: 10/27/17 08:31 MJO [place] [id number]) Pain Reassessment Is This A Pain ReAssessment? Yes Sleep Is patient sleeping during reassessment? No Presence of Pain Presence of Pain No Baclofen (Lioresal) 20 mg PO BID PRN PRN Reason: Pain, moderate (4-7) Last Admin: 10/27/17 04:02 Dose: 20 mg Collagenase (Santyl) 0 gm TOP BID [facility] Last Admin: 10/26/17 12:45 Dose: 1 applic Docusate Sodium (Colace) 100 mg PO BID [facility] Last Admin: 10/26/17 17:37 Dose: Not Given Non-Admin Reason: Patient Refused Comments: " I am having good bowel movements" Enoxaparin Sodium (Lovenox) 100 mg SC Q12H DONAL PRN Reason: Protocol Last Admin: 10/25/17 22:38 Dose: Aztreonam (Azactam 1 Gm) 100 mls @ 100 mls/hr IVPB Q8 DONAL PRN Reason: Protocol Last Admin: 10/27/17 05:37 Dose: 100 mls/hr eMAR Start Stop Document 10/27/17 05:37 PCO (Rec: 10/27/17 05:37 PCO [id number]) Intravenous Solution Start Date 10/27/17 Start Time 05:37 End Date 10/27/17 End time 06:40 Total Infusion Time 63 Morphine Sulfate (Morphine) 2 mg IVP Q4H PRN PRN Reason: Pain, severe (8-10) Ondansetron HCl (Zofran Inj) 4 mg IVP Q4 PRN PRN Reason: Nausea/Vomiting Pantoprazole Sodium (Protonix Ec Tab) 40 mg PO ACB [facility] Last Admin: 10/26/17 08:00 Dose: Not Given Non-Admin Reason: NPO Sodium Hypochlorite (Dakins Solution 0.25%) 1 ml TOP DAILY [facility] Last Admin: 10/26/17 12:45 Dose: 1 ml Discontinued Medications Acetaminophen (Tylenol 325mg Tab) 650 mg PO Q6H PRN PRN Reason: Fever >100.4 F Last Admin: 10/20/17 05:43 Dose: 650 mg MAR Pain/Vitals Document 10/20/17 05:43 MB (Rec: 10/20/17 05:43 MB [id number]) Vitals Temperature (97.6 F-99.6 F) 100.1 F Temperature Source Oral Collagenase (Santyl) 1 gm TOP DAILY [facility] Last Admin: 10/20/17 12:23 Dose: Diphenhydramine HCl (Benadryl) 25 mg IVP ONCE ONE Stop: 10/20/17 02:40 Last Admin: 10/20/17 02:43 Dose: 25 mg IVP Administration Document 10/20/17 02:43 IMT (Rec: 10/20/17 02:43 IMT [id number] Charges for Administration # of IVP Administrations 1 Enoxaparin Sodium (Lovenox) 100 mg SC Q12H [facility] PRN Reason: Protocol Last Admin: 10/22/17 21:23 Dose: 100 mg Subcutaneous Administrations Document 10/22/17 21:23 PCO (Rec: 10/22/17 21:23 PCO [id number][place] Injection Site MAR Injection Site Right Abdomen Charges for Administration # of Subcutaneous Administrations 1 Enoxaparin Sodium (Lovenox) 100 mg SC Q12H [facility] PRN Reason: Protocol Last Admin: 10/24/17 01:34 Dose: 100 mg Subcutaneous Administrations Document 10/24/17 01:34 HAKAN (Rec: 10/24/17 01:35 HAKAN [id number][place] Injection Site MAR Injection Site Right Abdomen Charges for Administration # of Subcutaneous Administrations 1 Gabapentin (Neurontin) 300 mg PO DAILY [facility] PRN Reason: Protocol Stop: 10/26/17 23:59 Last Admin: 10/26/17 09:00 Dose: Not Given Non-Admin Reason: NPO Hydromorphone HCl (Dilaudid) 0.5 mg IVP Q15M PRN PRN Reason: Pain, moderate (4-7) Stop: 10/26/17 15:09 Hydromorphone HCl (Dilaudid) 0.5 mg IVP STAT STA Stop: 10/26/17 14:29 Vancomycin HCl (Vancomycin 1gm) 1 gm in 250 mls @ 167 mls/hr IVPB STAT STA PRN Reason: Protocol Stop: 10/19/17 22:34 Last Admin: 10/20/17 00:44 Dose: mls/hr Comments: pt had reaction eMAR Start Stop Document 10/20/17 00:44 IMT (Rec: 10/20/17 00:44 IMT [id number]) Intravenous Solution Start Date 10/20/17 Start Time 01:45 End Date 10/20/17 End time 03:15 Total Infusion Time 90 Piperacillin Sod/Tazobactam Sod (Zosyn 3.375 In Ns 100ml) 100 mls @ 200 mls/hr IVPB STAT STA PRN Reason: Protocol Stop: 10/19/17 21:34 Last Admin: 10/19/17 22:19 Dose: 200 mls/hr eMAR Start Stop Document 10/19/17 22:19 SS (Rec: 10/19/17 22:19 SS [id number]) Intravenous Solution Start Date 10/19/17 Start Time 22:19 End Date 10/19/17 End time 22:49 Total Infusion Time 30 Aztreonam (Azactam 1 Gm) 100 mls @ 100 mls/hr IVPB Q8 DONAL PRN Reason: Protocol Stop: 10/20/17 06:59 Last Admin: 10/20/17 05:43 Dose: 100 mls/hr eMAR Start Stop Document 10/20/17 05:43 MB (Rec: 10/20/17 05:43 MB [id number]) Intravenous Solution Start Date 10/20/17 Start Time 05:43 Aztreonam (Azactam 1 Gm) 100 mls @ 100 mls/hr IVPB Q8 DONAL PRN Reason: Protocol Stop: 10/23/17 22:01 Last Admin: 10/23/17 21:40 Dose: 100 mls/hr eMAR Start Stop Document 10/23/17 21:40 HAKAN (Rec: 10/23/17 21:40 HAKAN [id number]) Intravenous Solution Start Date 10/23/17 Start Time 21:40 End Date 10/23/17 End time 22:40 Total Infusion Time 60 Aztreonam (Azactam 1 Gm) 100 mls @ 100 mls/hr IVPB Q8 DONAL PRN Reason: Protocol Stop: 10/24/17 22:59 Last Admin: 10/24/17 21:18 Dose: 100 mls/hr eMAR Start Stop Document 10/24/17 21:18 MP (Rec: 10/24/17 21:18 MP [id number]) Intravenous Solution Start Date 10/24/17 Start Time 21:18 Lactated Ringer's (Lactated Ringer's) 1,000 mls @ 75 mls/hr IV .[id number] DONAL Stop: 10/26/17 15:16 Pantoprazole Sodium (Protonix Inj) 40 mg IVP DAILY DONAL Warfarin Sodium (Coumadin) 5 mg PO 1800 DONAL PRN Reason: Protocol Last Admin: 10/22/17 17:20 Dose: 5 mg MAR INR Result Document 10/22/17 17:20 EP (Rec: 10/22/17 17:20 EP [id number]) INR INR 1.8 Warfarin Sodium (Coumadin) 3 mg PO 1800 DONAL PRN Reason: Protocol Last Admin: 10/22/17 17:20 Dose: 3 mg MAR INR Result Document 10/22/17 17:20 EP (Rec: 10/22/17 17:20 EP [id number]) INR INR 1.8 - Scribe Statement The provider has reviewed the documentation as recorded by the Scribaislinn Grant All medical record entries made by the Scribe were at my direction and personally dictated by me. I have reviewed the chart and agree that the record accurately reflects my personal performance of the history, physical exam, medical decision making, and the department course for this patient. I have also personally directed, reviewed, and agree with the discharge instructions and disposition. Disposition/Present on Arrival - Present on Arrival Any Indicators Present on Arrival: Yes History of DVT/PE: Yes History of Uncontrolled Diabetes: No Urinary Catheter: Yes History of Decub. Ulcer: Yes History Surgical Site Infection Following: None - Disposition Have Diagnosis and Disposition been Completed?: Yes Diagnosis: Sacral decubitus ulcer, stage IV Disposition: HOSPITALIZED Disposition Time: 00:00 Patient Plan: Admission Condition: FAIR
[2017-10-19] MEDS ORDERED: Piperacillin/Tazobact 3.375 gm 100 ML IVPB STA (21:05)
[2017-10-19] MEDS ORDERED: Vancomycin 1gm in NS 250ml 1 GM/250 ML BAG IVPB STA (21:05)
[2017-10-19 21:26] LABS: BASO # 0.01 K/mm3 (0.0-2.0); BASO % 0.2 % (0.0-3.0); EOS # 0.1 (0.0-0.7); EOS % 0.8 % (1.5-5.0); GRAN # 4.58 (1.4-6.5); GRAN % 71.3 % (50.0-68.0); HEMOGLOBIN 10.9 g/dL (14.0-18.0); LYMPH # 1.2 (1.2-3.4); MEAN CELL VOLUME 78.7 fl (80.0-105.0); MEAN CORPUSCULAR HEMOGLOBIN 25.8 pg (25.0-35.0); MEAN CORPUSCULAR HGB CONC 32.8 g/dl (31.0-37.0); MEAN PLATELET VOLUME 10.3 fl (7.0-11.0); MONO # 0.6 (0.1-0.6); MONO % 8.7 % (1.0-6.0); RBC 4.22 10^6/uL (3.5-6.1); RED CELL DISTRIBUTION WIDTH 15.8 % (11.5-14.5); WHITE BLOOD COUNT 6.4 10^3/ul (4.5-11.0)
[2017-10-19 21:27] LABS: VENOUS BLOOD GAS BASE EXCESS 3.2 mmol/L (0.0-2.0); VENOUS BLOOD GAS PO2 58 mm/Hg (30-55); VENOUS BLOOD PH 7.43 (7.32-7.43)
[2017-10-19 21:44] LABS: ALB/GLOB RATIO 0.9 (1.1-1.8); ALBUMIN 3.5 g/dL (3.0-4.8); ALT/SGPT 25 U/L (7-56); AST/SGOT 16 U/L (17-59); BLOOD UREA NITROGEN 12 mg/dL (7-21); CALCIUM 8.7 mg/dL (8.4-10.5); GFR AFRICAN-AMERICAN > 60; GFR NON-AFRICAN AMERICAN > 60
[2017-10-19 21:48] LABS: INR 1.63 (0.93-1.08); PROTHROMBIN TIME 18.8 SECONDS (9.4-12.5)
[2017-10-19 22:21] LABS: PH,URINE 7.5 (4.7-8.0); URINE BILIRUBIN NEGATIVE (NEGATIVE); URINE BLOOD TRACE-INTACT (NEGATIVE); URINE GLUCOSE (UA) NEGATIVE (NEGATIVE); URINE LEUKOCYTE ESTERASE LARGE Leu/uL (NEGATIVE); URINE PROTEIN NEGATIVE mg/dL (<30 mg/dL); URINE UROBILINOGEN 0.2 E.U./dL (<1 E.U./dL)
[2017-10-19 22:35] LABS: URINE APPEARANCE SL CLOUDY (CLEAR); URINE COLOR STRAW (YELLOW)
[2017-10-19 22:44] LABS: URINE BACTERIA MANY (NEG)
[2017-10-19 22:45] LABS: URINE AMORPHOUS SEDIMENT SMALL
--- NOTE | 2017-10-19 23:18 | CP.PCM.CON ---
History of Present Illness - History of Present Illness History of Present Illness: General Surgery Consult note for Dr. Askew Consulted for Sacral decubitus ulcer Mr. webb is a 52 yr old paraplegic male mild foul smell from known right ischial pressure ulcer, being cared for by his brother, most recently with dry packing as he lost his medicaid and had to return the wound vac. he has noticed increased discharge and odor over the past few days. He was recently admitted in July for similar issue due to necrosis and foul odor of the pressure ulcer in which he underwent debridement and was given antibiotics. Patient is not complaining of any pain at the ulcer site, due to his paraplegia. He additionally indicates that he believes he has developed a parastomal hernia as his ostomy site bulges out when he stands, coughs or strains. Patient also denies fever, chills, nausea, vomiting, abdominal pain. PMH: Paraplegia since June 2016, neurogenic bladder, DVT, PE PSHx: ostomy, laminectomy, neurogenic bladder with haque, IVC filter, multiple sacral wound debridements Social Hx: cocaine abuse prior, denies and recent ETOH, smoking or drug abuse Allergies: Cephalosporins Review of Systems - Review of Systems All systems: reviewed and no additional remarkable complaints except Review of Systems: as per HPI Past Patient History - Infectious Disease Hx of Infectious Diseases: None - Past Social History Smoking Status: Former Smoker - CARDIAC Hx Hypertension: Yes - PULMONARY Hx Respiratory Disorders: No - NEUROLOGICAL Hx Neurological Disorder: Yes Other/Comment: paraplegic - HEENT Hx HEENT Problems: No - RENAL Hx Chronic Kidney Disease: No - ENDOCRINE/METABOLIC Hx Endocrine Disorders: No - HEMATOLOGICAL/ONCOLOGICAL Hx Blood Transfusions: Yes Hx Blood Transfusion Reaction: No - INTEGUMENTARY Hx Dermatological Problems: Yes - MUSCULOSKELETAL/RHEUMATOLOGICAL Hx Falls: No - GASTROINTESTINAL Hx Gastrointestinal Disorders: Yes (COLOSTOMY ) Hx Colostomy: Yes - GENITOURINARY/GYNECOLOGICAL Hx Genitourinary Disorders: Yes Hx Incontinence: Yes Other/Comment: has haque and diaper - PSYCHIATRIC Hx Psychophysiologic Disorder: No Hx Substance Use: No - SURGICAL HISTORY Other/Comment: colostomy bag - ANESTHESIA Hx Anesthesia Reactions: No Hx Malignant Hyperthermia: No Meds Allergies/Adverse Reactions: Allergies Allergy/AdvReac Type Severity Reaction Status Date / Time ceftriaxone [From Rocephin] AdvReac Mild BURNING AT Verified 08/20/17 18:07 IV SITE Cephalosporins AdvReac Mild BURNING AT Verified 08/20/17 18:07 IV SITE - Medications Medications: Current Medications Acetaminophen (Tylenol 325mg Tab) 650 mg PO Q6H PRN PRN Reason: Fever >100.4 F Aztreonam (Azactam 1 Gm) 100 mls @ 100 mls/hr IVPB Q8 DONAL PRN Reason: Protocol Stop: 10/20/17 06:59 Physical Exam - Constitutional Appears: Well, Non-toxic, No Acute Distress - Head Exam Head Exam: ATRAUMATIC, NORMOCEPHALIC - ENT Exam ENT Exam: Mucous Membranes Moist - Respiratory Exam Respiratory Exam: NORMAL BREATHING PATTERN - Cardiovascular Exam Cardiovascular Exam: REGULAR RHYTHM - GI/Abdominal Exam GI & Abdominal Exam: Hernia, Soft. absent: Distended, Firm, Guarding, Rebound, Rigid, Tenderness Additional comments: right sided colostomy is in place, ostomy is pink, patent and productive of brown stool output, stoma size increases with coughing or straining but does not appear to demonstrate a true herniation - Exam Additional comments: haque catheter in place, cloudy urine in bag - Extremities Exam Additional comments: patient is paraplegic with intermittent sensation and motor capabilities in his legs, his right more than his left, he has frequent muscle spasms in his lower extremities, his sensation is markedly decreased/absent in the sacral area, no ulcerations noted on the heels, elbows, hips or shoulders - Back Exam Additional comments: 3cm long x 4 cm wide x 7cm deep stage 4 ulcer on the right ichsial spine, ischial spine is palpable in the base of the ulcer, large 10 cm x 9cm stage1/ unstageable ulcer on the sacrum, 3cm x 3cm stage 1 ulcer on the right lateral sacrum/superior gluteal area - Neurological Exam Neurological exam: Alert, Oriented x3 - Psychiatric Exam Psychiatric exam: Normal Affect, Normal Mood - Skin Additional comments: 3cm long x 4 cm wide x 7cm deep stage 4 ulcer on the right ichsial spine, large 10 cm x 9cm stage1/ unstageable ulcer on the sacrum, 3cm x 3cm stage 1 ulcer on the right lateral sacrum/superior gluteal area, no ulcerations of the heels, elbows, hips, or shoulders Results - Vital Signs Recent Vital Signs: Last Vital Signs Temp 98.9 F 10/19/17 22:14 Pulse 63 10/19/17 22:14 Resp 18 10/19/17 22:14 BP 112/66 10/19/17 22:14 Pulse Ox 100 10/19/17 22:14 - Labs Result Diagrams: 10/20/17 08:45 10/20/17 08:45 Labs: Laboratory Results - last 24 hr 10/19/17 10/19/17 10/19/17 21:10 21:10 21:10 WBC 6.4 D RBC 4.22 Hgb 10.9 L Hct 33.2 L MCV 78.7 L MCH 25.8 MCHC 32.8 RDW 15.8 H Plt Count 193 MPV 10.3 Gran % 71.3 H Lymph % (Auto) 19.0 L [place] % (Auto) 8.7 H Eos % (Auto) 0.8 L Baso % (Auto) 0.2 Gran # 4.58 Lymph # (Auto) 1.2 [place] # (Auto) 0.6 Eos # (Auto) 0.1 Baso # (Auto) 0.01 ESR 105 H PT 18.8 H INR 1.63 H pO2 58 H VBG pH 7.43 VBG pCO2 42.0 VBG HCO3 27.9 VBG Total CO2 29.2 H VBG O2 Sat (Calc) 92.1 H VBG Base Excess 3.2 H VBG Potassium 3.8 Sodium 139.0 Chloride 108.0 H Glucose 129 H Lactate 1.0 FiO2 21.0 Potassium Carbon Dioxide Anion Gap BUN Creatinine Est GFR ( Amer) Est GFR (Non-Af Amer) Random Glucose Calcium Total Bilirubin AST ALT Alkaline Phosphatase Total Protein Albumin Globulin Albumin/Globulin Ratio Venous Blood Potassium 3.8 Urine Color Urine Appearance Urine pH Ur Specific [place] Urine Protein Urine Glucose (UA) Urine Ketones Urine Blood Urine Nitrate Urine Bilirubin Urine Urobilinogen Ur Leukocyte Esterase Urine RBC Urine WBC Ur Epithelial Cells Amorphous Sediment Urine Bacteria 10/19/17 10/19/17 21:10 22:05 WBC RBC Hgb Hct MCV MCH MCHC RDW Plt Count MPV Gran % Lymph % (Auto) [place] % (Auto) Eos % (Auto) Baso % (Auto) Gran # Lymph # (Auto) [place] # (Auto) Eos # (Auto) Baso # (Auto) ESR PT INR pO2 VBG pH VBG pCO2 VBG HCO3 VBG Total CO2 VBG O2 Sat (Calc) VBG Base Excess VBG Potassium Sodium 142 Chloride 106 Glucose Lactate FiO2 Potassium 3.8 Carbon Dioxide 25 Anion Gap 15 BUN 12 Creatinine 0.6 L Est GFR ( Amer) > 60 Est GFR (Non-Af Amer) > 60 Random Glucose 126 H Calcium 8.7 Total Bilirubin 0.3 AST 16 L ALT 25 Alkaline Phosphatase 88 Total Protein 7.4 Albumin 3.5 Globulin 3.9 Albumin/Globulin Ratio 0.9 L Venous Blood Potassium Urine Color Straw Urine Appearance Sl cloudy Urine pH 7.5 Ur Specific [place] <= 1.005 Urine Protein Negative Urine Glucose (UA) Negative Urine Ketones Negative Urine Blood Trace-intact H Urine Nitrate Positive H Urine Bilirubin Negative Urine Urobilinogen 0.2 Ur Leukocyte Esterase Large H Urine RBC 2 - 5 Urine WBC 10 - 15 Ur Epithelial Cells 3 - 4 Amorphous Sediment Small Urine Bacteria Many Assessment & Plan - Assessment and Plan (Free Text) Assessment: 52 yr old male s/p numerous OR I&D since january with known right ischial decubitus ulcer and new stage 1 sacral ulcers Plan: - will f/u wound culture -will f/u urine culture -will f/u blood culture -continue abx per ID recs - continue coumadin, INR 1.63, bridge to lovenox per primary recs -wound care has been consulted, will f/u recs -air mattress and q2 turning, nurse to obtain mattress and ensure turning - dakins soaked kerlex packing for right ischial ulcer and santyl with optifoam dressing for all other ulcers -will f/u MRI to r/o osteo -will discuss plan with Dr. Askew, all further recs per him Stefanie Dubose, PGY 1 - Date & Time Date: 10/19/17 Time: 23:00
--- NOTE | 2017-10-19 23:20 | CP.PCM.HP ---
History of Present Illness - History of Present Illness History of Present Illness: Hal Levy PGY-1, Internal Medicine Resident, History and Physical for Dr Marc. CC: "I have a sacral ulcer" HPI: Pt is a 52 yo male with a PMH of being paraplegic, IVDA, T2 epidural abscess, ileostomy in place, sacral ulcers who presents to the ED complaining of worsening bed sores. Pt states that his brother has helped him dress the sacral ulcers for the past several days but there has been no improvement. Pt has had these ulcers since January. He states that they have gotten worse recently with skin breakdown. He is unable to feel the ulcers due to his paraplegia. He states that they ulcers have had some discharge and malodor. Pt denies fever, chills, chest pain, SOB, nausea, vomiting, back pain, neck pain, headache, dizziness, or any other complaints. A 12 point ROS was obtained and pertinent positives and negatives were added where appropriate. PMH: paraplegia, IVDA, T2 epidural abscess, ileostomy in place, sacral ulcers, indwelling Haque catheter PSH: T2 abscess removal, ileostomy placement, sacral wound debridement FH: Father: alcohol use. Mother: DM Social: Hx of IVDA, former smoker quit 2017, 20 pack years. Used to drink 6 pack per day, quit 2017. IVDA in the past. Home Meds: Warfarin, Baclafen Allergies: Ceftriaxone, hives. Labs: CBC: WBC: 6.4, Hgb: 10.9 Coag: INR: 1.63 CMP: Cr 0.6, Random Glucose 126, AST 16 UA: Trace Blood, Positive Nitrate, LE large Imaging: MRI pelvis non-con, pending Present on Admission - Present on Admission Any Indicators Present on Admission: Yes History of Uncontrolled Diabetes: No Urinary Catheter: Yes Decubitus Ulcer Present: Yes Decubitus Ulcer Stage: IV Review of Systems - Review of Systems Review of Systems: 12 point ROS obtained with pertinent positives and negatives added to HPI Past Patient History - Infectious Disease Hx of Infectious Diseases: None - Past Social History Smoking Status: Former Smoker - CARDIAC Hx Hypertension: Yes - PULMONARY Hx Respiratory Disorders: No - NEUROLOGICAL Hx Neurological Disorder: Yes Other/Comment: paraplegic - HEENT Hx HEENT Problems: No - RENAL Hx Chronic Kidney Disease: No - ENDOCRINE/METABOLIC Hx Endocrine Disorders: No - HEMATOLOGICAL/ONCOLOGICAL Hx Blood Transfusions: Yes Hx Blood Transfusion Reaction: No - INTEGUMENTARY Hx Dermatological Problems: Yes Other/Comment: 05-26-17 PRESSURE SACRAL ULCER-HEALING WOUND BUT HAS 2 OPEN WOUND STAGE 2 1 CM IN DM. RIGHT BUTTOCK PRESSURE ULCER WITH OPEN WOUND SMOOTH EDGES, WOUND VAC AT HOME,NON HEALING WOUND.DEPTH OF 5 CM WITH INDURATION OF 3.5 AT 12 OCLOCK.WOUND BED HAS MOIST BLACK FILM NECROTIC TISSUE. LEFT HEEL HAS A PRESSURE ULCER BLACKENED NECROTIC TISSUE COVERING WHOLE WOUND.MEASURES 3 X 4 CM. - MUSCULOSKELETAL/RHEUMATOLOGICAL Hx Falls: No - GASTROINTESTINAL Hx Gastrointestinal Disorders: Yes (COLOSTOMY LEFT.) Hx Colostomy: Yes - GENITOURINARY/GYNECOLOGICAL Hx Genitourinary Disorders: Yes Hx Incontinence: Yes Other/Comment: has haque and diaper - PSYCHIATRIC Hx Psychophysiologic Disorder: No Hx Substance Use: No - SURGICAL HISTORY Other/Comment: colostomy bag - ANESTHESIA Hx Anesthesia Reactions: No Hx Malignant Hyperthermia: No Meds Allergies/Adverse Reactions: Allergies Allergy/AdvReac Type Severity Reaction Status Date / Time ceftriaxone [From Rocephin] AdvReac Mild BURNING AT Verified 08/20/17 18:07 IV SITE Cephalosporins AdvReac Mild BURNING AT Verified 08/20/17 18:07 IV SITE Physical Exam - Constitutional Appears: In Acute Distress Additional comments: upon arrival, pt laying on his side, knees bent, having casual conversation with the nurse - Head Exam Head Exam: ATRAUMATIC, NORMOCEPHALIC - Eye Exam Eye Exam: EOMI - ENT Exam ENT Exam: Mucous Membranes Moist - Respiratory Exam Respiratory Exam: Clear to Auscultation Bilateral, NORMAL BREATHING PATTERN. absent: Rales, Rhonchi, Wheezes, Stridor - Cardiovascular Exam Cardiovascular Exam: REGULAR RHYTHM, RRR, +S1, +S2. absent: Diastolic murmur, Systolic Murmur - GI/Abdominal Exam GI & Abdominal Exam: Normal Bowel Sounds, Soft. absent: Distended, Rigid Additional comments: ileostomy in place - Extremities Exam Extremities exam: Negative for: calf tenderness, full ROM, pedal edema Additional comments: pt is paraplegic, only able to mildly zoey right foot and slightly move 3rd, 4th and 5th toes. - Back Exam Additional comments: pt has a stage IV sacral ulcer over his right ischium. pt has a stage I ulver on his left and right buttocks Results - Vital Signs Recent Vital Signs: Last Vital Signs Temp 98.9 F 10/19/17 22:14 Pulse 63 10/19/17 22:14 Resp 18 10/19/17 22:14 BP 112/66 10/19/17 22:14 Pulse Ox 100 10/19/17 22:14 - Labs Result Diagrams: 10/19/17 21:10 10/19/17 21:10 Labs: Laboratory Results - last 24 hr 10/19/17 10/19/17 10/19/17 21:10 21:10 21:10 WBC 6.4 D RBC 4.22 Hgb 10.9 L Hct 33.2 L MCV 78.7 L MCH 25.8 MCHC 32.8 RDW 15.8 H Plt Count 193 MPV 10.3 Gran % 71.3 H Lymph % (Auto) 19.0 L [place] % (Auto) 8.7 H Eos % (Auto) 0.8 L Baso % (Auto) 0.2 Gran # 4.58 Lymph # (Auto) 1.2 [place] # (Auto) 0.6 Eos # (Auto) 0.1 Baso # (Auto) 0.01 ESR 105 H PT 18.8 H INR 1.63 H pO2 58 H VBG pH 7.43 VBG pCO2 42.0 VBG HCO3 27.9 VBG Total CO2 29.2 H VBG O2 Sat (Calc) 92.1 H VBG Base Excess 3.2 H VBG Potassium 3.8 Sodium 139.0 Chloride 108.0 H Glucose 129 H Lactate 1.0 FiO2 21.0 Potassium Carbon Dioxide Anion Gap BUN Creatinine Est GFR ( Amer) Est GFR (Non-Af Amer) Random Glucose Calcium Total Bilirubin AST ALT Alkaline Phosphatase Total Protein Albumin Globulin Albumin/Globulin Ratio Venous Blood Potassium 3.8 Urine Color Urine Appearance Urine pH Ur Specific [place] Urine Protein Urine Glucose (UA) Urine Ketones Urine Blood Urine Nitrate Urine Bilirubin Urine Urobilinogen Ur Leukocyte Esterase Urine RBC Urine WBC Ur Epithelial Cells Amorphous Sediment Urine Bacteria 10/19/17 10/19/17 21:10 22:05 WBC RBC Hgb Hct MCV MCH MCHC RDW Plt Count MPV Gran % Lymph % (Auto) [place] % (Auto) Eos % (Auto) Baso % (Auto) Gran # Lymph # (Auto) [place] # (Auto) Eos # (Auto) Baso # (Auto) ESR PT INR pO2 VBG pH VBG pCO2 VBG HCO3 VBG Total CO2 VBG O2 Sat (Calc) VBG Base Excess VBG Potassium Sodium 142 Chloride 106 Glucose Lactate FiO2 Potassium 3.8 Carbon Dioxide 25 Anion Gap 15 BUN 12 Creatinine 0.6 L Est GFR ( Amer) > 60 Est GFR (Non-Af Amer) > 60 Random Glucose 126 H Calcium 8.7 Total Bilirubin 0.3 AST 16 L ALT 25 Alkaline Phosphatase 88 Total Protein 7.4 Albumin 3.5 Globulin 3.9 Albumin/Globulin Ratio 0.9 L Venous Blood Potassium Urine Color Straw Urine Appearance Sl cloudy Urine pH 7.5 Ur Specific [place] <= 1.005 Urine Protein Negative Urine Glucose (UA) Negative Urine Ketones Negative Urine Blood Trace-intact H Urine Nitrate Positive H Urine Bilirubin Negative Urine Urobilinogen 0.2 Ur Leukocyte Esterase Large H Urine RBC 2 - 5 Urine WBC 10 - 15 Ur Epithelial Cells 3 - 4 Amorphous Sediment Small Urine Bacteria Many Assessment & Plan - Assessment and Plan (Free Text) Assessment: Pt is a 52 yo male with a PMH of paraplegia, IVDA, T2 epidural abscess, ileostomy, sacral ulcers who presents to the ED complaining of worsening bed sores. Plan: Stage IV Sacral Ulcer -afebrile, no leukocytosis -CRP, pending -UDS, pending -ESR, 105 -Blood cultures pending -Urine culture pending -Sacral ulcer, wound culture pending -Wound care consulted -Surgery consulted, Dr Askew -ID consulted, Dr Valadez -start Tylenol for Pain -Procal pending -Start Aztreonam 1g IVPB q8 -Start Vanc 1g IVPB -start Zosyn IVPB -continue diphendydramine for histamine rxn from Vanc, decrease infusion rate -continue Baclofen -Continue zofran for nausea -Ordered MRI non con of pelvis, R/o osteomyelitis -continue air mattress, turn pt q2 -regular diet Ileostomy chronic -surgery consulted Pt seen, examined, and assessment and plan discussed with Dr Marc. Hal Levy PGY-1
[2017-10-20] MEDS: Aztreonam 1 Gm in NS 100mL 100 ML IVPB SCH ×3 (00:43→22:00)
[2017-10-20] MEDS ORDERED: DiphenhydrAMINE 50 mg/ml Inj IVP ONE (02:39)
[2017-10-20] MEDS ORDERED: Vancomycin 1gm in NS 250ml 1 GM/250 ML BAG IVPB STA (06:39)
--- NOTE | 2017-10-20 08:32 | CP.PCM.PN ---
Subjective - Date & Time of Evaluation Date of Evaluation: 10/20/17 Time of Evaluation: 08:28 - Subjective Subjective: Surgery: Dr. Askew Pt seen and examined. No acute overnight events. States he feels ok and denies any pain, however admits to feeling feverish. Denies other complaints at this time. Tolerating diet. Objective - Vital Signs/Intake and Output Vital Signs (last 24 hours): Temp Pulse Resp BP Pulse Ox 100.1 F H 64 20 101/52 L 99 10/20/17 05:43 10/19/17 23:40 10/19/17 23:40 10/19/17 23:40 10/19/17 23:30 - Medications Medications: Current Medications Acetaminophen (Tylenol 325mg Tab) 650 mg PO Q6H PRN PRN Reason: Fever >100.4 F Last Admin: 10/20/17 05:43 Dose: 650 mg Baclofen (Lioresal) 20 mg PO BID PRN PRN Reason: Pain, moderate (4-7) Collagenase (Santyl) 1 gm TOP DAILY DONAL Ondansetron HCl (Zofran Inj) 4 mg IVP Q4 PRN PRN Reason: Nausea/Vomiting Sodium Hypochlorite (Dakins Solution 0.25%) 1 ml TOP DAILY DONAL - Labs Labs: 10/19/17 21:10 10/19/17 21:10 PT 18.8 SECONDS (9.4-12.5) H 10/19/17 21:10 INR 1.63 (0.93-1.08) H 10/19/17 21:10 - Constitutional Appears: Well, No Acute Distress - Head Exam Head Exam: ATRAUMATIC, NORMOCEPHALIC - ENT Exam ENT Exam: Mucous Membranes Moist - Respiratory Exam Respiratory Exam: NORMAL BREATHING PATTERN - Cardiovascular Exam Cardiovascular Exam: RRR - GI/Abdominal Exam GI & Abdominal Exam: Soft Additional comments: ostomy in place with soft stool in bag - Back Exam Additional comments: healing sacral ulcer 6x4cm; ischial ulcer stage 4 2x2cm. No drainage noted - Neurological Exam Neurological Exam: Alert, Awake, Oriented x3 - Skin Skin Exam: Dry, Warm Assessment and Plan - Assessment and Plan (Free Text) Assessment: 52M with a healing sacral ulcer & stage 4 ischial ulcer Plan: - apply santyl to sacral ulcer with optifoam on top - apply kerlex with dakins packing to the ischial ulcer - no plan for surgical intervention at this time - f/u MRI report to r/o osteo - air mattress with q2 turning & offloading - d/w Dr. Azar Badillo
[2017-10-20 09:01] LABS: BASO # 0.01 K/mm3 (0.0-2.0); BASO % 0.2 % (0.0-3.0); EOS # 0.1 (0.0-0.7); EOS % 0.8 % (1.5-5.0); GRAN # 4.64 (1.4-6.5); GRAN % 69.6 % (50.0-68.0); HEMOGLOBIN 10.3 g/dL (14.0-18.0); LYMPH # 1.4 (1.2-3.4); MEAN CELL VOLUME 78.4 fl (80.0-105.0); MEAN CORPUSCULAR HEMOGLOBIN 25.3 pg (25.0-35.0); MEAN CORPUSCULAR HGB CONC 32.3 g/dl (31.0-37.0); MEAN PLATELET VOLUME 10.7 fl (7.0-11.0); MONO # 0.6 (0.1-0.6); MONO % 8.4 % (1.0-6.0); RBC 4.07 10^6/uL (3.5-6.1); RED CELL DISTRIBUTION WIDTH 15.8 % (11.5-14.5); WHITE BLOOD COUNT 6.7 10^3/ul (4.5-11.0)
[2017-10-20 09:08] LABS: ALB/GLOB RATIO 0.9 (1.1-1.8); ALBUMIN 3.4 g/dL (3.0-4.8); ALT/SGPT 16 U/L (7-56); AST/SGOT 17 U/L (17-59); BLOOD UREA NITROGEN 9 mg/dL (7-21); CALCIUM 8.7 mg/dL (8.4-10.5); GFR AFRICAN-AMERICAN > 60; GFR NON-AFRICAN AMERICAN > 60
[2017-10-20] MEDS ORDERED: Collagenase 250 Units/gm Ointment(30 gm) TOP SCH (10:00)
[2017-10-20] MEDS: Enoxaparin 100 mg Syringe SC SCH ×2 (12:21→21:33)
[2017-10-20] MEDS: Dakin's Topical 0.25%-Half Strength (480 ml) TOP SCH (12:23)
--- NOTE | 2017-10-20 13:40 | CP.PCM.PN ---
<Sebastian Aguilar - Last Filed: 10/20/17 15:25> Subjective - Date & Time of Evaluation Date of Evaluation: 10/20/17 Time of Evaluation: 07:15 - Subjective Subjective: Sebastian Aguilar DO PGY-1, [facility] Progress Note Pt seen and examined at bedside. States he feels warm and feverish this am. Pt had episode of possible "red man syndrome" last night s/p infusion of vancomycin , medication was discontinued. Pt has received doses of zosyn and aztreonam. Pt denies pain currently, states he was brought to the hospital by his brother for worsening bed sores last night. Objective - Vital Signs/Intake and Output Vital Signs (last 24 hours): Temp Pulse Resp BP Pulse Ox 100 F H 91 H 20 90/64 L 98 10/20/17 06:00 10/20/17 06:00 10/20/17 06:00 10/20/17 06:00 10/20/17 06:00 - Medications Medications: Current Medications Acetaminophen (Tylenol 325mg Tab) 650 mg PO Q6H PRN PRN Reason: Fever >100.4 F Last Admin: 10/20/17 05:43 Dose: 650 mg Baclofen (Lioresal) 20 mg PO BID PRN PRN Reason: Pain, moderate (4-7) Last Admin: 10/20/17 12:26 Dose: 20 mg Collagenase (Santyl) 1 gm TOP DAILY DONAL Last Admin: 10/20/17 12:23 Dose: Not Given Enoxaparin Sodium (Lovenox) 100 mg SC Q12H DONAL PRN Reason: Protocol Last Admin: 10/20/17 12:21 Dose: 100 mg Ondansetron HCl (Zofran Inj) 4 mg IVP Q4 PRN PRN Reason: Nausea/Vomiting Sodium Hypochlorite (Dakins Solution 0.25%) 1 ml TOP DAILY DONAL Last Admin: 10/20/17 12:23 Dose: Not Given Warfarin Sodium (Coumadin) 5 mg PO 1800 DONAL PRN Reason: Protocol Warfarin Sodium (Coumadin) 3 mg PO 1800 DONAL PRN Reason: Protocol - Labs Labs: 10/20/17 08:45 10/20/17 08:45 PT 18.8 SECONDS (9.4-12.5) H 10/19/17 21:10 INR 1.63 (0.93-1.08) H 10/19/17 21:10 - Constitutional Appears: No Acute Distress, Chronically Ill - Head Exam Head Exam: ATRAUMATIC, NORMAL INSPECTION, NORMOCEPHALIC - Eye Exam Eye Exam: EOMI, Normal appearance, PERRL - ENT Exam ENT Exam: Mucous Membranes Moist, Normal Oropharynx - Respiratory Exam Respiratory Exam: Clear to Ausculation Bilateral, NORMAL BREATHING PATTERN - Cardiovascular Exam Cardiovascular Exam: REGULAR RHYTHM, +S1, +S2 - GI/Abdominal Exam GI & Abdominal Exam: Soft, Normal Bowel Sounds Additional comments: Ostomy in place with soft stool in bag - Extremities Exam Extremities Exam: Full ROM, Normal Capillary Refill, Normal Inspection - Back Exam Additional comments: Healing sacral ulcer 6x4 cm, ischial ulcer stage 4 measured 2x2 cm. No drainage noted. - Neurological Exam Neurological Exam: Alert, Awake, Oriented x3 Additional comments: Pt is paraplegic Assessment and Plan - Assessment and Plan (Free Text) Assessment: 52 y o male PMHx paraplegia, IVDA, T2 epidural abscess, ileostomy in place since Jan 2017, sacral ulcers, indwelling haque, who presents to the ED complaining of worsening bed sores. Pt admitted for management of stage IV sacral ulcer. Plan: Stage IV Sacral Ulcer Tmax 100.1, pt feeling subjective fever, BP range 90-100s/50-60s No leukocytosis, continue to trend CRP elevated, ESR 105 Procalcitonin low Blood and urine cx pending Sacral ulcer wound cx pending Wound care consulted, recs appreciated Surgery consulted (Dr. Askew), recs appreciated ID consulted, recs appreciated Tylenol prn for pain Zofran prn for nausea S/p aztreonam and zosyn IVPB Pt was receiving 1x dose vancomycin on day of admission and had possible episode of "red man syndrome" per report, vancomycin d/c'd, pt given benadryl for symptoms, recommend decreasing infusion rate C/w baclofen MRI w/o contrast pelvis ordered to r/o osteomyelitis, f/u results C/w air mattress, turn pt q 2 h Further wound management recs as per wound care, surgery, and ID Per surgery: no plan for surgical intervention at this time Regular diet Will continue to monitor pt Ileostomy, chronic Hx since Jan 2017 as per patient Surgery consulted, f/u recs Hx paraplegia Pt on coumadin at home, INR 1.63 on admission, continue to trend Warfarin 8 mg daily, adjust as needed based on pt's INR, bridge with lovenox PT/OT evals pending Hx IVDA Urine drug screen pending GI/DVT ppx: Protonix/Warfarin, Lovenox Pt seen, examined with, and plan discussed with Dr. Reynoso, attending. Sebastian Aguilar DO PGY-1, [facility] Pager #[phone] <Jarrod Reynoso - Last Filed: 10/23/17 16:49> Objective - Vital Signs/Intake and Output Vital Signs (last 24 hours): Temp Pulse Resp BP Pulse Ox 97.5 F L 59 L 20 121/80 99 10/23/17 06:00 10/23/17 06:00 10/23/17 06:00 10/23/17 06:00 10/23/17 06:00 Intake and Output: 10/23/17 10/23/17 06:59 18:59 Intake Total 1540 720 Output Total 1000 800 Balance 540 -80 - Medications Medications: Current Medications Acetaminophen (Tylenol 325mg Tab) 650 mg PO Q6H PRN PRN Reason: Other Last Admin: 10/23/17 05:55 Dose: 650 mg Baclofen (Lioresal) 20 mg PO BID PRN PRN Reason: Pain, moderate (4-7) Last Admin: 10/22/17 23:34 Dose: 20 mg Collagenase (Santyl) 0 gm TOP BID DONAL Last Admin: 10/23/17 10:24 Dose: 1 unit Enoxaparin Sodium (Lovenox) 100 mg SC Q12H DONAL PRN Reason: Protocol Last Admin: 10/23/17 15:57 Dose: 100 mg Gabapentin (Neurontin) 300 mg PO DAILY DONAL PRN Reason: Protocol Stop: 10/26/17 23:59 Last Admin: 10/23/17 10:26 Dose: 300 mg Aztreonam (Azactam 1 Gm) 100 mls @ 100 mls/hr IVPB Q8 DONAL PRN Reason: Protocol Stop: 10/23/17 22:01 Last Admin: 10/23/17 15:55 Dose: 100 mls/hr Ondansetron HCl (Zofran Inj) 4 mg IVP Q4 PRN PRN Reason: Nausea/Vomiting Pantoprazole Sodium (Protonix Ec Tab) 40 mg PO ACB DONAL Last Admin: 10/23/17 07:00 Dose: 40 mg Sodium Hypochlorite (Dakins Solution 0.25%) 1 ml TOP DAILY [facility] Last Admin: 10/23/17 10:25 Dose: 1 ml Warfarin Sodium (Coumadin) 5 mg PO 1800 DONAL PRN Reason: Protocol Last Admin: 10/22/17 17:20 Dose: 5 mg Warfarin Sodium (Coumadin) 2.5 mg PO 1800 DONAL PRN Reason: Protocol - Labs Labs: 10/23/17 07:00 10/23/17 07:00 PT 26.0 SECONDS (9.4-12.5) H 10/23/17 07:10 INR 2.22 (0.93-1.08) H 10/23/17 07:10 APTT 37.3 Seconds (25.1-36.5) H 10/23/17 07:10 Attending/Attestation - Attestation I have personally seen and examined this patient.: Yes I have fully participated in the care of the patient.: Yes I have reviewed all pertinent clinical information, including history, physical exam and plan: Yes Notes (Text): 10/23/17 16:45 Medical record note made by the resident after discussion with my direction and input after the patient was personally seen and examined by me. I have reviewed the chart and agree that the record accurately reflects by personal performance of the history, physical exam, data review, and medical decision-making, in the course for the patient. I have also personally directed the plan of care. 52 y old male with PMH of paraplegia due to T2 epidural abscess, SP Colostomy in place since Jan 2017, sacral ulcers,chronic indwelling haque, was admitted with infected decubitus stage IV sacral ulcer in the cocyx area.We will continue IV antibiotics as per ID.We will follow up wound and blood cultures.We will also get MRI to rule out osteomylitis. H/O DVT on bridging lovenox and warfarin as INR is not therapeutic.We will monitor INR.
--- NOTE | 2017-10-20 19:50 | CON ---
DATE: 10/20/2017 Atul Magana was seen on the floor. Discussed this with the resident and examined the patient myself, reviewed the x-rays and the laboratory. The patient has some prolapse of the colostomy. It was otherwise unremarkable. The sacrum has large slough of tissues to the right side that is probably necrotic, but is unstageable at this time. The sacral wound is much more that it was, but it tracks at least 6 inches along the bone with some purulence. We will add local care with Dakin solution and widely pack. We will start Santyl and make sure he has an air mattress. Trever Askew MD
--- NOTE | 2017-10-20 20:46 | CP.PCM.CON ---
History of Present Illness - History of Present Illness History of Present Illness: Infectious Disease Consultation: October 20, 2017 52 yo male with extensive medical history including paraplegia, IVDA, T2 epidural abscess, ileostomy, and chronic sacral decubiti presenting with worsening sacral decubiti ulcerations. He states that he has discharge and malodor at the ulceration sites. The patient is bedbound. PMHx: paraplegia, IVDA, T2 epidural abscess, sacral ulcers PSHx: ileostomy in place Allergies: Ceftriaxone - hives Vancomycin? (Had reaction but patient also received Zosyn earlier. Rash did appear as soon as infusion started). Social Hx: IVDA Hx, Ex-smoker quit 2017 - 20 pack years Ex-EtOH abuse - stopped 2017 was 6 pack per day. Active Medications Acetaminophen (Tylenol 325mg Tab) 650 mg PO Q6H PRN PRN Reason: Other Last Admin: 10/20/17 18:42 Dose: 650 mg Baclofen (Lioresal) 20 mg PO BID PRN PRN Reason: Pain, moderate (4-7) Last Admin: 10/20/17 12:26 Dose: 20 mg Collagenase (Santyl) 1 gm TOP DAILY DONAL Last Admin: 10/20/17 12:23 Dose: Not Given Enoxaparin Sodium (Lovenox) 100 mg SC Q12H DONAL PRN Reason: Protocol Last Admin: 10/20/17 12:21 Dose: 100 mg Ondansetron HCl (Zofran Inj) 4 mg IVP Q4 PRN PRN Reason: Nausea/Vomiting Pantoprazole Sodium (Protonix Ec Tab) 40 mg PO ACB DONAL Sodium Hypochlorite (Dakins Solution 0.25%) 1 ml TOP DAILY DONAL Last Admin: 10/20/17 12:23 Dose: Not Given Warfarin Sodium (Coumadin) 5 mg PO 1800 DONAL PRN Reason: Protocol Last Admin: 10/20/17 17:59 Dose: 5 mg Warfarin Sodium (Coumadin) 3 mg PO 1800 DONAL PRN Reason: Protocol Last Admin: 10/20/17 17:58 Dose: 3 mg Family Hx: None given ROS: no fevers, chills, nausea, vomiting, diarrhea, headaches, dizziness, chest pain , abdominal pain, melena, hematuria, hematemesis, hematochezia, depression, anxiety. Past Patient History - Infectious Disease Hx of Infectious Diseases: None - Past Social History Smoking Status: Former Smoker - CARDIAC Hx Hypertension: Yes - PULMONARY Hx Respiratory Disorders: No - NEUROLOGICAL Hx Neurological Disorder: Yes Other/Comment: paraplegic - HEENT Hx HEENT Problems: No - RENAL Hx Chronic Kidney Disease: No - ENDOCRINE/METABOLIC Hx Endocrine Disorders: No - HEMATOLOGICAL/ONCOLOGICAL Hx Blood Transfusions: Yes Hx Blood Transfusion Reaction: No - INTEGUMENTARY Hx Dermatological Problems: Yes - MUSCULOSKELETAL/RHEUMATOLOGICAL Hx Falls: No - GASTROINTESTINAL Hx Gastrointestinal Disorders: Yes (COLOSTOMY ) Hx Colostomy: Yes - GENITOURINARY/GYNECOLOGICAL Hx Genitourinary Disorders: Yes Hx Incontinence: Yes Other/Comment: has haque and diaper - PSYCHIATRIC Hx Psychophysiologic Disorder: No Hx Substance Use: No - SURGICAL HISTORY Other/Comment: colostomy bag - ANESTHESIA Hx Anesthesia Reactions: No Hx Malignant Hyperthermia: No Meds Allergies/Adverse Reactions: Allergies Allergy/AdvReac Type Severity Reaction Status Date / Time ceftriaxone [From Rocephin] AdvReac Mild BURNING AT Verified 08/20/17 18:07 IV SITE Cephalosporins AdvReac Mild BURNING AT Verified 08/20/17 18:07 IV SITE vancomycin AdvReac ITCHING Verified 10/20/17 14:02 - Medications Medications: Current Medications Acetaminophen (Tylenol 325mg Tab) 650 mg PO Q6H PRN PRN Reason: Other Last Admin: 10/20/17 18:42 Dose: 650 mg Baclofen (Lioresal) 20 mg PO BID PRN PRN Reason: Pain, moderate (4-7) Last Admin: 10/20/17 12:26 Dose: 20 mg Collagenase (Santyl) 1 gm TOP DAILY [facility] Last Admin: 10/20/17 12:23 Dose: Not Given Enoxaparin Sodium (Lovenox) 100 mg SC Q12H DONAL PRN Reason: Protocol Last Admin: 10/20/17 12:21 Dose: 100 mg Ondansetron HCl (Zofran Inj) 4 mg IVP Q4 PRN PRN Reason: Nausea/Vomiting Pantoprazole Sodium (Protonix Ec Tab) 40 mg PO ACB DONAL Sodium Hypochlorite (Dakins Solution 0.25%) 1 ml TOP DAILY DONAL Last Admin: 10/20/17 12:23 Dose: Not Given Warfarin Sodium (Coumadin) 5 mg PO 1800 DONAL PRN Reason: Protocol Last Admin: 10/20/17 17:59 Dose: 5 mg Warfarin Sodium (Coumadin) 3 mg PO 1800 DONAL PRN Reason: Protocol Last Admin: 10/20/17 17:58 Dose: 3 mg Physical Exam - Constitutional Appears: No Acute Distress, Cachectic, Chronically Ill - Head Exam Head Exam: ATRAUMATIC, NORMOCEPHALIC - Eye Exam Eye Exam: EOMI, PERRL Pupil Exam: NORMAL ACCOMODATION, PERRL - ENT Exam ENT Exam: Mucous Membranes Moist, Normal External Ear Exam, TM's Normal Bilaterally - Neck Exam Neck exam: Positive for: Full Rom, Normal Inspection - Respiratory Exam Respiratory Exam: Clear to Auscultation Bilateral, NORMAL BREATHING PATTERN. absent: Rales, Rhonchi, Wheezes - Cardiovascular Exam Cardiovascular Exam: REGULAR RHYTHM, RRR, +S1, +S2 - GI/Abdominal Exam GI & Abdominal Exam: Soft. absent: Distended, Tenderness Additional comments: ileostomy in place - Extremities Exam Additional comments: paraplegic, contracted extremities all four limbs. Cachetic. - Back Exam Additional comments: pt has a stage IV sacral ulcer over his right ischium. pt has a stage I ulver on his left and right buttocks - Neurological Exam Neurological exam: Alert, CN II-XII Intact, Oriented x3 - Psychiatric Exam Psychiatric exam: Normal Affect, Normal Mood - Skin Additional comments: As above. Results - Vital Signs Recent Vital Signs: Last Vital Signs Temp 98.6 F 10/20/17 14:00 Pulse 72 10/20/17 14:00 Resp 20 10/20/17 14:00 BP 100/47 L 10/20/17 14:00 Pulse Ox 97 10/20/17 14:00 - Labs Result Diagrams: 10/20/17 08:45 10/20/17 08:45 Labs: Laboratory Results - last 24 hr 10/19/17 10/19/17 10/19/17 21:10 21:10 21:10 WBC 6.4 D RBC 4.22 Hgb 10.9 L Hct 33.2 L MCV 78.7 L MCH 25.8 MCHC 32.8 RDW 15.8 H Plt Count 193 MPV 10.3 Gran % 71.3 H Lymph % (Auto) 19.0 L [place] % (Auto) 8.7 H Eos % (Auto) 0.8 L Baso % (Auto) 0.2 Gran # 4.58 Lymph # (Auto) 1.2 [place] # (Auto) 0.6 Eos # (Auto) 0.1 Baso # (Auto) 0.01 ESR 105 H PT 18.8 H INR 1.63 H pO2 VBG pH VBG pCO2 VBG HCO3 VBG Total CO2 VBG O2 Sat (Calc) VBG Base Excess VBG Potassium Sodium Chloride Glucose Lactate FiO2 Potassium Carbon Dioxide Anion Gap BUN Creatinine Est GFR ( Amer) Est GFR (Non-Af Amer) Random Glucose Calcium Total Bilirubin AST ALT Alkaline Phosphatase C-React Prot High Sens Total Protein Albumin Globulin Albumin/Globulin Ratio Procalcitonin 0.07 L Venous Blood Potassium Urine Color Urine Appearance Urine pH Ur Specific [place] Urine Protein Urine Glucose (UA) Urine Ketones Urine Blood Urine Nitrate Urine Bilirubin Urine Urobilinogen Ur Leukocyte Esterase Urine RBC Urine WBC Ur Epithelial Cells Amorphous Sediment Urine Bacteria 10/19/17 10/19/17 10/19/17 21:10 21:10 21:10 WBC RBC Hgb Hct MCV MCH MCHC RDW Plt Count MPV Gran % Lymph % (Auto) [place] % (Auto) Eos % (Auto) Baso % (Auto) Gran # Lymph # (Auto) [place] # (Auto) Eos # (Auto) Baso # (Auto) ESR PT INR pO2 58 H VBG pH 7.43 VBG pCO2 42.0 VBG HCO3 27.9 VBG Total CO2 29.2 H VBG O2 Sat (Calc) 92.1 H VBG Base Excess 3.2 H VBG Potassium 3.8 Sodium 139.0 142 Chloride 108.0 H 106 Glucose 129 H Lactate 1.0 FiO2 21.0 Potassium 3.8 Carbon Dioxide 25 Anion Gap 15 BUN 12 Creatinine 0.6 L Est GFR ( Amer) > 60 Est GFR (Non-Af Amer) > 60 Random Glucose 126 H Calcium 8.7 Total Bilirubin 0.3 AST 16 L ALT 25 Alkaline Phosphatase 88 C-React Prot High Sens > 15.00 H Total Protein 7.4 Albumin 3.5 Globulin 3.9 Albumin/Globulin Ratio 0.9 L Procalcitonin Venous Blood Potassium 3.8 Urine Color Urine Appearance Urine pH Ur Specific [place] Urine Protein Urine Glucose (UA) Urine Ketones Urine Blood Urine Nitrate Urine Bilirubin Urine Urobilinogen Ur Leukocyte Esterase Urine RBC Urine WBC Ur Epithelial Cells Amorphous Sediment Urine Bacteria 10/19/17 10/20/17 10/20/17 22:05 08:45 08:45 WBC 6.7 RBC 4.07 Hgb 10.3 L Hct 31.9 L MCV 78.4 L MCH 25.3 MCHC 32.3 RDW 15.8 H Plt Count 186 MPV 10.7 Gran % 69.6 H Lymph % (Auto) 21.0 L [place] % (Auto) 8.4 H Eos % (Auto) 0.8 L Baso % (Auto) 0.2 Gran # 4.64 Lymph # (Auto) 1.4 [place] # (Auto) 0.6 Eos # (Auto) 0.1 Baso # (Auto) 0.01 ESR PT INR pO2 VBG pH VBG pCO2 VBG HCO3 VBG Total CO2 VBG O2 Sat (Calc) VBG Base Excess VBG Potassium Sodium 141 Chloride 106 Glucose Lactate FiO2 Potassium 3.6 Carbon Dioxide 25 Anion Gap 14 BUN 9 Creatinine 0.6 L Est GFR ( Amer) > 60 Est GFR (Non-Af Amer) > 60 Random Glucose 142 H Calcium 8.7 Total Bilirubin 0.2 AST 17 ALT 16 Alkaline Phosphatase 77 C-React Prot High Sens Total Protein 7.1 Albumin 3.4 Globulin 3.7 Albumin/Globulin Ratio 0.9 L Procalcitonin Venous Blood Potassium Urine Color Straw Urine Appearance Sl cloudy Urine pH 7.5 Ur Specific [place] <= 1.005 Urine Protein Negative Urine Glucose (UA) Negative Urine Ketones Negative Urine Blood Trace-intact H Urine Nitrate Positive H Urine Bilirubin Negative Urine Urobilinogen 0.2 Ur Leukocyte Esterase Large H Urine RBC 2 - 5 Urine WBC 10 - 15 Ur Epithelial Cells 3 - 4 Amorphous Sediment Small Urine Bacteria Many Assessment & Plan - Assessment and Plan (Free Text) Assessment: 52 yo male with extensive sacral decubiti stage IV in additional to other medical issues. Patient with known rash with PCN. Unclear why Zosyn was given in PCN allergy. 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 For now would start with Aztreonam and obtain wound cultures (hopefully done before any antibiotics were started.). Supportive and wound care. Surgery evaluation for potential debridement. Can extend coverage if MRSA is found. There may need to be a desensitization to carbapenems if resistant gram negatives are found in cultures. Thank you for allowing me to participate in the care of the patient, we will follow with you.
[2017-10-21] MEDS: Aztreonam 1 Gm in NS 100mL 100 ML IVPB SCH ×3 (05:43→21:58)
[2017-10-21 07:28] LABS: BASO # 0.02 K/mm3 (0.0-2.0); BASO % 0.4 % (0.0-3.0); EOS # 0.1 (0.0-0.7); EOS % 1.8 % (1.5-5.0); GRAN # 2.97 (1.4-6.5); GRAN % 58.9 % (50.0-68.0); HEMOGLOBIN 11.2 g/dL (14.0-18.0); LYMPH # 1.6 (1.2-3.4); LYMPH % 30.8 % (22.0-35.0); MEAN CORPUSCULAR HGB CONC 31.6 g/dl (31.0-37.0); MEAN PLATELET VOLUME 10.5 fl (7.0-11.0); MONO # 0.4 (0.1-0.6); MONO % 8.1 % (1.0-6.0); RBC 4.48 10^6/uL (3.5-6.1); RED CELL DISTRIBUTION WIDTH 15.8 % (11.5-14.5)
[2017-10-21 07:35] LABS: INR 1.66 (0.93-1.08); PARTIAL THROMBOPLASTIN TIME 35.4 Seconds (25.1-36.5); PROTHROMBIN TIME 19.3 SECONDS (9.4-12.5)
[2017-10-21 07:45] LABS: ALB/GLOB RATIO 0.9 (1.1-1.8); ALBUMIN 3.3 g/dL (3.0-4.8); ALT/SGPT 15 U/L (7-56); AST/SGOT 13 U/L (17-59); BLOOD UREA NITROGEN 12 mg/dL (7-21); CALCIUM 9.1 mg/dL (8.4-10.5); GFR AFRICAN-AMERICAN > 60; GFR NON-AFRICAN AMERICAN > 60
[2017-10-21] MEDS: Pantoprazole 40 mg EC Tab PO SCH (08:00)
[2017-10-21] MEDS: Enoxaparin 100 mg Syringe SC SCH ×2 (10:28→21:57)
--- NOTE | 2017-10-21 12:29 | CP.PCM.PN ---
Subjective - Date & Time of Evaluation Date of Evaluation: 10/21/17 Time of Evaluation: 10:00 - Subjective Subjective: Patient was seen and examined at bedside this AM. No adverse events overnight. Patient denies any fevers, chills, pain, nausea, vomiting, or any other issues Objective - Vital Signs/Intake and Output Vital Signs (last 24 hours): Temp Pulse Resp BP Pulse Ox 98.1 F 54 L 20 130/74 98 10/21/17 06:00 10/21/17 06:00 10/21/17 06:00 10/21/17 06:00 10/21/17 06:00 Intake and Output: 10/21/17 10/21/17 06:59 18:59 Intake Total 620 Output Total 2475 Balance -1855 - Medications Medications: Current Medications Acetaminophen (Tylenol 325mg Tab) 650 mg PO Q6H PRN PRN Reason: Other Last Admin: 10/21/17 06:01 Dose: 650 mg Baclofen (Lioresal) 20 mg PO BID PRN PRN Reason: Pain, moderate (4-7) Last Admin: 10/21/17 05:47 Dose: 20 mg Collagenase (Santyl) 1 gm TOP DAILY DONAL Last Admin: 10/20/17 12:23 Dose: Not Given Enoxaparin Sodium (Lovenox) 100 mg SC Q12H DONAL PRN Reason: Protocol Last Admin: 10/21/17 10:28 Dose: 100 mg Aztreonam (Azactam 1 Gm) 100 mls @ 100 mls/hr IVPB Q8 DONAL PRN Reason: Protocol Stop: 10/23/17 22:01 Last Admin: 10/21/17 05:43 Dose: 100 mls/hr Ondansetron HCl (Zofran Inj) 4 mg IVP Q4 PRN PRN Reason: Nausea/Vomiting Pantoprazole Sodium (Protonix Ec Tab) 40 mg PO ACB DONAL Last Admin: 10/21/17 08:00 Dose: 40 mg Sodium Hypochlorite (Dakins Solution 0.25%) 1 ml TOP DAILY [facility] Last Admin: 10/20/17 12:23 Dose: Not Given Warfarin Sodium (Coumadin) 5 mg PO 1800 DONAL PRN Reason: Protocol Last Admin: 10/20/17 17:59 Dose: 5 mg Warfarin Sodium (Coumadin) 3 mg PO 1800 DONAL PRN Reason: Protocol Last Admin: 10/20/17 17:58 Dose: 3 mg - Labs Labs: 10/21/17 07:00 10/21/17 07:00 PT 19.3 SECONDS (9.4-12.5) H 10/21/17 06:45 INR 1.66 (0.93-1.08) H 10/21/17 06:45 APTT 35.4 Seconds (25.1-36.5) 10/21/17 06:45 - Constitutional Appears: Well, Non-toxic, No Acute Distress - Head Exam Head Exam: ATRAUMATIC, NORMOCEPHALIC - Eye Exam Eye Exam: Normal appearance. absent: Conjunctival injection, Scleral icterus - ENT Exam ENT Exam: Mucous Membranes Moist, Normal Oropharynx - Respiratory Exam Respiratory Exam: NORMAL BREATHING PATTERN. absent: Accessory Muscle Use, Respiratory Distress - Cardiovascular Exam Cardiovascular Exam: RRR - GI/Abdominal Exam GI & Abdominal Exam: Soft. absent: Distended, Tenderness - Extremities Exam Extremities Exam: absent: Calf Tenderness, Pedal Edema, Tenderness - Neurological Exam Neurological Exam: Alert, Awake, Oriented x3 - Psychiatric Exam Psychiatric exam: Normal Affect, Normal Mood - Skin Additional comments: 3cm long x 4 cm wide x 7cm deep stage 4 ulcer on the right ischial spine, large 10 cm x 9cm stage 1 on the sacrum, 3cm x 3cm stage 2 ulcer on the right lateral sacrum/superior gluteal area Assessment and Plan - Assessment and Plan (Free Text) Assessment: 52M with paraplegia from prior spinal abscess with chronic stage 4 right ischial wound, stage 2 and stage 1 sacral wounds Plan: Continue local wound care with soaked dakins packing in the right ischial wound and santyl and optifoam for the sacral wound Turn Q2, air mattress Diet supplementation for adequate nutritional status F/U ID recs and wound cultures No surgical intervention at this time--will continue to monitor wounds closely with local care and will reconsider if any sign of clinical deterioration Discussed with Dr. Azar Du, PGY2
--- NOTE | 2017-10-21 16:12 | CP.PCM.PN ---
Subjective - Date & Time of Evaluation Date of Evaluation: 10/21/17 Time of Evaluation: 14:30 - Subjective Subjective: Infectious Disease Follow Up: October 21, 2017 52 yo male with extensive medical history including paraplegia, IVDA, T2 epidural abscess, ileostomy, and chronic sacral decubiti presenting with worsening sacral decubiti ulcerations. He states that he has discharge and malodor at the ulceration sites. The patient is bedbound. Bone scan done. Results pending. Objective - Vital Signs/Intake and Output Vital Signs (last 24 hours): Temp Pulse Resp BP Pulse Ox 98.3 F 60 18 109/63 100 10/21/17 14:00 10/21/17 14:00 10/21/17 14:00 10/21/17 14:00 10/21/17 14:00 Intake and Output: 10/21/17 10/21/17 06:59 18:59 Intake Total 620 Output Total 2475 Balance -1855 - Medications Medications: Current Medications Acetaminophen (Tylenol 325mg Tab) 650 mg PO Q6H PRN PRN Reason: Other Last Admin: 10/21/17 06:01 Dose: 650 mg Baclofen (Lioresal) 20 mg PO BID PRN PRN Reason: Pain, moderate (4-7) Last Admin: 10/21/17 05:47 Dose: 20 mg Collagenase (Santyl) 1 gm TOP DAILY [facility] Last Admin: 10/20/17 12:23 Dose: Not Given Enoxaparin Sodium (Lovenox) 100 mg SC Q12H [facility] PRN Reason: Protocol Last Admin: 10/21/17 10:28 Dose: 100 mg Aztreonam (Azactam 1 Gm) 100 mls @ 100 mls/hr IVPB Q8 [facility] PRN Reason: Protocol Stop: 10/23/17 22:01 Last Admin: 10/21/17 13:54 Dose: 100 mls/hr Ondansetron HCl (Zofran Inj) 4 mg IVP Q4 PRN PRN Reason: Nausea/Vomiting Pantoprazole Sodium (Protonix Ec Tab) 40 mg PO ACB [facility] Last Admin: 10/21/17 08:00 Dose: 40 mg Sodium Hypochlorite (Dakins Solution 0.25%) 1 ml TOP DAILY [facility] Last Admin: 10/20/17 12:23 Dose: Not Given Warfarin Sodium (Coumadin) 5 mg PO 1800 [facility] PRN Reason: Protocol Last Admin: 10/20/17 17:59 Dose: 5 mg Warfarin Sodium (Coumadin) 3 mg PO 1800 [facility] PRN Reason: Protocol Last Admin: 10/20/17 17:58 Dose: 3 mg - Labs Labs: 10/21/17 07:00 10/21/17 07:00 PT 19.3 SECONDS (9.4-12.5) H 10/21/17 06:45 INR 1.66 (0.93-1.08) H 10/21/17 06:45 APTT 35.4 Seconds (25.1-36.5) 10/21/17 06:45 - Constitutional Appears: No Acute Distress, Cachectic, Chronically Ill - Head Exam Head Exam: ATRAUMATIC, NORMOCEPHALIC - Eye Exam Eye Exam: EOMI, PERRL Pupil Exam: NORMAL ACCOMODATION, PERRL - ENT Exam ENT Exam: Mucous Membranes Moist, Normal External Ear Exam, TM's Normal Bilaterally - Neck Exam Neck Exam: Full ROM, Normal Inspection - Respiratory Exam Respiratory Exam: Clear to Ausculation Bilateral, NORMAL BREATHING PATTERN. absent: Rales, Rhonchi, Wheezes - Cardiovascular Exam Cardiovascular Exam: REGULAR RHYTHM, RRR, +S1, +S2 - GI/Abdominal Exam GI & Abdominal Exam: Soft. absent: Distended, Tenderness Additional comments: ileostomy in place. - Extremities Exam Additional comments: paraplegic, contracted extremities all four limbs. Cachetic. - Back Exam Additional comments: pt has a stage IV sacral ulcer over his right ischium. pt has a stage I ulver on his left and right buttocks - Neurological Exam Neurological Exam: Alert, Awake, CN II-XII Intact, Oriented x3 - Psychiatric Exam Psychiatric exam: Normal Affect, Normal Mood - Skin Additional comments: As above. Assessment and Plan - Assessment and Plan (Free Text) Assessment: 52 yo male with extensive sacral decubiti stage IV in additional to other medical issues. Patient with known rash with PCN. Unclear why Zosyn was given in PCN allergy. 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 For now would start with Aztreonam and obtain wound cultures (hopefully done before any antibiotics were started.). Supportive and wound care. Surgery evaluation for potential debridement. Can extend coverage if MRSA is found. There may need to be a desensitization to carbapenems if resistant gram negatives are found in cultures. Gram negative rods in two cultures. Results of the bone scan are pending. Thank you for allowing me to participate in the care of the patient, we will follow with you.
--- NOTE | 2017-10-21 17:40 | CP.PCM.PN ---
<Sebastian Aguilar - Last Filed: 10/21/17 17:37> Subjective - Date & Time of Evaluation Date of Evaluation: 10/21/17 Time of Evaluation: 07:25 - Subjective Subjective: Sebastian Aguilar DO PGY-1, Workplace Rehabilitation Officer Medicine Progress Note Pt seen and examined at bedside. Denies any acute complaints, states he is not having fevers as often. No acute events reported overnight. Objective - Vital Signs/Intake and Output Vital Signs (last 24 hours): Temp Pulse Resp BP Pulse Ox 98.3 F 60 18 109/63 100 10/21/17 14:00 10/21/17 14:00 10/21/17 14:00 10/21/17 14:00 10/21/17 14:00 Intake and Output: 10/21/17 10/21/17 06:59 18:59 Intake Total 620 Output Total 2475 Balance -1855 - Medications Medications: Current Medications Acetaminophen (Tylenol 325mg Tab) 650 mg PO Q6H PRN PRN Reason: Other Last Admin: 10/21/17 06:01 Dose: 650 mg Baclofen (Lioresal) 20 mg PO BID PRN PRN Reason: Pain, moderate (4-7) Last Admin: 10/21/17 05:47 Dose: 20 mg Collagenase (Santyl) 1 gm TOP DAILY [facility] Last Admin: 10/20/17 12:23 Dose: Not Given Enoxaparin Sodium (Lovenox) 100 mg SC Q12H [facility] PRN Reason: Protocol Last Admin: 10/21/17 10:28 Dose: 100 mg Aztreonam (Azactam 1 Gm) 100 mls @ 100 mls/hr IVPB Q8 [facility] PRN Reason: Protocol Stop: 10/23/17 22:01 Last Admin: 10/21/17 13:54 Dose: 100 mls/hr Ondansetron HCl (Zofran Inj) 4 mg IVP Q4 PRN PRN Reason: Nausea/Vomiting Pantoprazole Sodium (Protonix Ec Tab) 40 mg PO ACB [facility] Last Admin: 10/21/17 08:00 Dose: 40 mg Sodium Hypochlorite (Dakins Solution 0.25%) 1 ml TOP DAILY [facility] Last Admin: 10/20/17 12:23 Dose: Not Given Warfarin Sodium (Coumadin) 5 mg PO 1800 [facility] PRN Reason: Protocol Last Admin: 10/20/17 17:59 Dose: 5 mg Warfarin Sodium (Coumadin) 3 mg PO 1800 [facility] PRN Reason: Protocol Last Admin: 10/20/17 17:58 Dose: 3 mg - Labs Labs: 10/21/17 07:00 10/21/17 07:00 PT 19.3 SECONDS (9.4-12.5) H 10/21/17 06:45 INR 1.66 (0.93-1.08) H 10/21/17 06:45 APTT 35.4 Seconds (25.1-36.5) 10/21/17 06:45 - Constitutional Appears: No Acute Distress, Chronically Ill - Head Exam Head Exam: ATRAUMATIC, NORMAL INSPECTION, NORMOCEPHALIC - Eye Exam Eye Exam: EOMI, Normal appearance, PERRL - ENT Exam ENT Exam: Mucous Membranes Moist, Normal Oropharynx - Respiratory Exam Respiratory Exam: Clear to Ausculation Bilateral, NORMAL BREATHING PATTERN - Cardiovascular Exam Cardiovascular Exam: REGULAR RHYTHM, +S1, +S2 - GI/Abdominal Exam GI & Abdominal Exam: Soft, Normal Bowel Sounds Additional comments: Ostomy in place with soft stool in bag - Extremities Exam Extremities Exam: Normal Capillary Refill, Normal Inspection - Back Exam Additional comments: Healing sacral ulcer 6x4 cm, ischial ulcer measuring 2x2 cm. No drainage noted. - Neurological Exam Neurological Exam: Alert, Awake, CN II-XII Intact, Oriented x3 - Psychiatric Exam Psychiatric exam: Normal Affect, Normal Mood - Skin Skin Exam: Dry, Intact, Warm Assessment and Plan - Assessment and Plan (Free Text) Assessment: 52 y o male PMHx paraplegia, IVDA, T2 epidural abscess, ileostomy in place since Jan 2017, sacral ulcers, indwelling haque, who presented to the ED complaining of worsening bed sores. Pt admitted for management of stage IV sacral ulcer. Plan: Stage IV Sacral Ulcer Afebrile, vitals stable, continue to monitor No leukocytosis, continue to trend CRP elevated, ESR 105 Procalcitonin low Blood cx NG after 24 hrs Urine cx growing gram neg rods, final results pending Sacral ulcer wound cx pending Wound care consulted, recs appreciated Surgery consulted (Dr. Askew), recs appreciated ID consulted, recs appreciated Tylenol prn for pain Zofran prn for nausea S/p aztreonam and zosyn IVPB Pt was receiving 1x dose vancomycin on day of admission and had possible episode of "red man syndrome" per report, vancomycin d/c'd, pt given benadryl for symptoms C/w aztreonam IVPB as per ID C/w baclofen Pt was unable to fit in MRI machine due to LE contracture 2/2 paraplegia, bone scan performed, f/u results to r/o osteomyelitis C/w air mattress, turn pt q 2 h Further wound management recs as per wound care, surgery, and ID Per surgery: no plan for surgical intervention at this time Regular diet Will continue to monitor pt Ileostomy, chronic Hx since Jan 2017 as per patient Surgery consulted, f/u recs Hx paraplegia Pt on coumadin at home, INR 1.66 today, continue to trend Warfarin 8 mg daily, adjust as needed based on pt's INR, bridge with lovenox for 72 hrs F/u PT/OT recs Hx IVDA Urine drug screen pending GI/DVT ppx: Protonix/Warfarin, Lovenox Pt seen, examined with, and plan discussed with Dr. Reynoso, attending. Sebastian Aguilar DO PGY-1, Workplace Rehabilitation Officer Pager #[phone] <Jarrod Reynoso - Last Filed: 10/24/17 17:27> Objective - Vital Signs/Intake and Output Vital Signs (last 24 hours): Temp Pulse Resp BP Pulse Ox 97.5 F L 61 20 106/65 98 10/24/17 15:05 10/24/17 15:05 10/24/17 15:05 10/24/17 15:05 10/24/17 15:05 Intake and Output: 10/24/17 10/24/17 06:59 18:59 Intake Total 980 Output Total 2225 Balance -1245 - Medications Medications: Current Medications Acetaminophen (Tylenol 325mg Tab) 650 mg PO Q6H PRN PRN Reason: Other Last Admin: 10/24/17 11:00 Dose: 650 mg Baclofen (Lioresal) 20 mg PO BID PRN PRN Reason: Pain, moderate (4-7) Last Admin: 10/24/17 11:01 Dose: 20 mg Collagenase (Santyl) 0 gm TOP BID [facility] Last Admin: 10/24/17 17:08 Dose: Not Given Enoxaparin Sodium (Lovenox) 100 mg SC Q12H [facility] PRN Reason: Protocol Gabapentin (Neurontin) 300 mg PO DAILY [facility] PRN Reason: Protocol Stop: 10/26/17 23:59 Last Admin: 10/24/17 10:57 Dose: 300 mg Aztreonam (Azactam 1 Gm) 100 mls @ 100 mls/hr IVPB Q8 [facility] PRN Reason: Protocol Stop: 10/24/17 22:59 Last Admin: 10/24/17 14:52 Dose: 100 mls/hr Ondansetron HCl (Zofran Inj) 4 mg IVP Q4 PRN PRN Reason: Nausea/Vomiting Pantoprazole Sodium (Protonix Ec Tab) 40 mg PO ACB [facility] Last Admin: 10/24/17 07:04 Dose: 40 mg Sodium Hypochlorite (Dakins Solution 0.25%) 1 ml TOP DAILY [facility] Last Admin: 10/24/17 14:55 Dose: 1 ml Warfarin Sodium (Coumadin) 5 mg PO 1800 [facility] PRN Reason: Protocol Last Admin: 10/22/17 17:20 Dose: 5 mg Warfarin Sodium (Coumadin) 2.5 mg PO 1800 [facility] PRN Reason: Protocol - Labs Labs: 10/24/17 06:30 10/24/17 06:30 PT 25.0 SECONDS (9.4-12.5) H 10/24/17 06:30 INR 2.14 (0.93-1.08) H 10/24/17 06:30 APTT 41.0 Seconds (25.1-36.5) H 10/24/17 06:30 Attending/Attestation - Attestation I have personally seen and examined this patient.: Yes I have fully participated in the care of the patient.: Yes I have reviewed all pertinent clinical information, including history, physical exam and plan: Yes Notes (Text): 10/24/17 17:27 Medical record note made by the resident after discussion with my direction and input after the patient was personally seen and examined by me. I have reviewed the chart and agree that the record accurately reflects by personal performance of the history, physical exam, data review, and medical decision-making, in the course for the patient. I have also personally directed the plan of care.
[2017-10-22 01:45] LABS: BARBITURATES, UR NEGATIVE (NEGATIVE); BENZODIAZEPINES, UR NEGATIVE (NEGATIVE); OPIATES, UR NEGATIVE (NEGATIVE); PHENCYCLIDINE, UR NEGATIVE (NEGATIVE)
[2017-10-22] MEDS: Aztreonam 1 Gm in NS 100mL 100 ML IVPB SCH ×3 (05:23→21:24)
[2017-10-22 07:00] LABS: INR 1.82 (0.93-1.08); PARTIAL THROMBOPLASTIN TIME 36.6 Seconds (25.1-36.5); PROTHROMBIN TIME 21.2 SECONDS (9.4-12.5)
[2017-10-22 07:36] LABS: BASO # 0.03 K/mm3 (0.0-2.0); BASO % 0.6 % (0.0-3.0); EOS # 0.1 (0.0-0.7); GRAN # 2.86 (1.4-6.5); GRAN % 52.8 % (50.0-68.0); HEMOGLOBIN 11.2 g/dL (14.0-18.0); LYMPH # 1.9 (1.2-3.4); LYMPH % 34.6 % (22.0-35.0); MEAN CELL VOLUME 79.5 fl (80.0-105.0); MEAN CORPUSCULAR HEMOGLOBIN 25.3 pg (25.0-35.0); MEAN CORPUSCULAR HGB CONC 31.8 g/dl (31.0-37.0); MONO # 0.5 (0.1-0.6); RBC 4.43 10^6/uL (3.5-6.1); RED CELL DISTRIBUTION WIDTH 15.6 % (11.5-14.5); WHITE BLOOD COUNT 5.4 10^3/ul (4.5-11.0)
[2017-10-22 07:50] LABS: ALB/GLOB RATIO 0.9 (1.1-1.8); ALBUMIN 3.7 g/dL (3.0-4.8); ALT/SGPT 24 U/L (7-56); AST/SGOT 20 U/L (17-59); BLOOD UREA NITROGEN 12 mg/dL (7-21); CALCIUM 9.3 mg/dL (8.4-10.5); GFR AFRICAN-AMERICAN > 60; GFR NON-AFRICAN AMERICAN > 60
[2017-10-22] MEDS: Pantoprazole 40 mg EC Tab PO SCH (08:21)
--- NOTE | 2017-10-22 08:36 | CP.PCM.PN ---
Subjective - Date & Time of Evaluation Date of Evaluation: 10/22/17 Time of Evaluation: 07:00 - Subjective Subjective: Patient seen and examined at bedside this AM. Denies any nausea, vomiting, fevers, chills or pain. Patient's dressing changed at bedside with foul smell noted Objective - Vital Signs/Intake and Output Vital Signs (last 24 hours): Temp Pulse Resp BP Pulse Ox 97.8 F 50 L 20 122/70 97 10/22/17 06:00 10/22/17 06:00 10/22/17 06:00 10/22/17 06:00 10/22/17 06:00 Intake and Output: 10/22/17 10/22/17 06:59 18:59 Intake Total 1100 Output Total 2800 Balance -1700 - Medications Medications: Current Medications Acetaminophen (Tylenol 325mg Tab) 650 mg PO Q6H PRN PRN Reason: Other Last Admin: 10/22/17 02:45 Dose: 650 mg Baclofen (Lioresal) 20 mg PO BID PRN PRN Reason: Pain, moderate (4-7) Last Admin: 10/22/17 02:46 Dose: 20 mg Collagenase (Santyl) 1 gm TOP DAILY [facility] Last Admin: 10/20/17 12:23 Dose: Not Given Enoxaparin Sodium (Lovenox) 100 mg SC Q12H [facility] PRN Reason: Protocol Last Admin: 10/21/17 21:57 Dose: 100 mg Aztreonam (Azactam 1 Gm) 100 mls @ 100 mls/hr IVPB Q8 [facility] PRN Reason: Protocol Stop: 10/23/17 22:01 Last Admin: 10/22/17 05:23 Dose: 100 mls/hr Ondansetron HCl (Zofran Inj) 4 mg IVP Q4 PRN PRN Reason: Nausea/Vomiting Pantoprazole Sodium (Protonix Ec Tab) 40 mg PO ACB [facility] Last Admin: 10/22/17 08:21 Dose: 40 mg Sodium Hypochlorite (Dakins Solution 0.25%) 1 ml TOP DAILY [facility] Last Admin: 10/20/17 12:23 Dose: Not Given Warfarin Sodium (Coumadin) 5 mg PO 1800 [facility] PRN Reason: Protocol Last Admin: 10/21/17 18:42 Dose: 5 mg Warfarin Sodium (Coumadin) 3 mg PO 1800 [facility] PRN Reason: Protocol Last Admin: 10/21/17 18:42 Dose: 3 mg - Labs Labs: 10/22/17 07:15 10/22/17 07:15 PT 21.2 SECONDS (9.4-12.5) H 10/22/17 06:15 INR 1.82 (0.93-1.08) H 10/22/17 06:15 APTT 36.6 Seconds (25.1-36.5) H 10/22/17 06:15 - Constitutional Appears: Well, Non-toxic, No Acute Distress - Head Exam Head Exam: ATRAUMATIC, NORMOCEPHALIC - Eye Exam Eye Exam: Normal appearance. absent: Conjunctival injection, Scleral icterus - ENT Exam ENT Exam: Mucous Membranes Moist, Normal Oropharynx - Respiratory Exam Respiratory Exam: NORMAL BREATHING PATTERN. absent: Accessory Muscle Use, Respiratory Distress - Cardiovascular Exam Cardiovascular Exam: RRR - GI/Abdominal Exam GI & Abdominal Exam: Soft. absent: Distended - Extremities Exam Extremities Exam: absent: Calf Tenderness, Pedal Edema, Tenderness - Neurological Exam Neurological Exam: Alert, Awake, Oriented x3 - Psychiatric Exam Psychiatric exam: Normal Affect, Normal Mood - Skin Additional comments: 3cm long x 4 cm wide x 7cm deep stage 4 ulcer on the right ischial spine with foul odor today, large 10 cm x 9cm stage 1 on the sacrum, 3cm x 3cm stage 2 ulcer on the right lateral sacrum/superior gluteal area Assessment and Plan - Assessment and Plan (Free Text) Assessment: 52M with paraplegia d/t history of spinal abscess, with chronic ischial and sacral ulcers Plan: Continue current local wound care Antibiotics per ID Follow up cultures--gram negative rods resulted at this time PT/OT Air mattress, turn Q2 Will continue to closely monitor wounds. If they worsen patient may need surgical intervention. Will discuss with Dr. Askew, further recommendations per him Becca Du, PGY2
--- NOTE | 2017-10-22 09:36 | NM ---
Date of service: 10/21/2017 PROCEDURE: Triple Phase Bone Scan HISTORY: R/o osteomyelitis of sacral decubitus ulcer COMPARISON: CT 08/20/2017 TECHNIQUE: Following administration of 26.2 miCu of Tc MDP multiplanar triple phase bone scan of the pelvis was obtained in the flow, blood pool and delayed phases of tracer uptake. FINDINGS: There is no focal accumulation in the sacrum to suggest osteomyelitis. On the delayed images there is some increased activity in the right ischium. The previous CT showed soft tissue ulceration in this region. This could represent osteomyelitis. This area was not well demonstrated on the flow images. Bilateral osteochondromas are seen arising from the iliac bones. The show increased activity on delayed images. IMPRESSION: Possible osteomyelitis of the right ischium. No abnormality seen in the sacrum.
[2017-10-22] MEDS: Dakin's Topical 0.25%-Half Strength (480 ml) TOP SCH (09:49)
[2017-10-22] MEDS: Collagenase 250 Units/gm Ointment(30 gm) TOP SCH ×2 (09:49→18:27)
[2017-10-22] MEDS: Enoxaparin 100 mg Syringe SC SCH ×2 (09:49→21:23)
[2017-10-22] MEDS ORDERED: Collagenase 250 Units/gm Ointment(30 gm) TOP SCH (10:00)
--- NOTE | 2017-10-22 14:50 | CP.PCM.PN ---
<Sebastian Aguilar - Last Filed: 10/22/17 15:06> Subjective - Date & Time of Evaluation Date of Evaluation: 10/22/17 Time of Evaluation: 08:30 - Subjective Subjective: Sebastian Aguilar DO PGY-1, Vegetable Farmworker Medicine Progress Note Pt seen and examined at bedside. Denies any acute complaints, states subjective fevers are much more spaced out during the day. No acute events reported overnight. Objective - Vital Signs/Intake and Output Vital Signs (last 24 hours): Temp Pulse Resp BP Pulse Ox 97.8 F 50 L 20 122/70 97 10/22/17 06:00 10/22/17 06:00 10/22/17 06:00 10/22/17 06:00 10/22/17 06:00 Intake and Output: 10/22/17 10/22/17 06:59 18:59 Intake Total 1100 Output Total 2800 Balance -1700 - Medications Medications: Current Medications Acetaminophen (Tylenol 325mg Tab) 650 mg PO Q6H PRN PRN Reason: Other Last Admin: 10/22/17 02:45 Dose: 650 mg Baclofen (Lioresal) 20 mg PO BID PRN PRN Reason: Pain, moderate (4-7) Last Admin: 10/22/17 02:46 Dose: 20 mg Collagenase (Santyl) 0 gm TOP BID [facility] Last Admin: 10/22/17 09:49 Dose: 1 unit Enoxaparin Sodium (Lovenox) 100 mg SC Q12H [facility] PRN Reason: Protocol Last Admin: 10/22/17 09:49 Dose: 100 mg Aztreonam (Azactam 1 Gm) 100 mls @ 100 mls/hr IVPB Q8 [facility] PRN Reason: Protocol Stop: 10/23/17 22:01 Last Admin: 10/22/17 13:32 Dose: 100 mls/hr Ondansetron HCl (Zofran Inj) 4 mg IVP Q4 PRN PRN Reason: Nausea/Vomiting Pantoprazole Sodium (Protonix Ec Tab) 40 mg PO ACB [facility] Last Admin: 10/22/17 08:21 Dose: 40 mg Sodium Hypochlorite (Dakins Solution 0.25%) 1 ml TOP DAILY [facility] Last Admin: 10/22/17 09:49 Dose: 1 ml Warfarin Sodium (Coumadin) 5 mg PO 1800 [facility] PRN Reason: Protocol Last Admin: 10/21/17 18:42 Dose: 5 mg Warfarin Sodium (Coumadin) 3 mg PO 1800 [facility] PRN Reason: Protocol Last Admin: 10/21/17 18:42 Dose: 3 mg - Labs Labs: 10/22/17 07:15 10/22/17 07:15 PT 21.2 SECONDS (9.4-12.5) H 10/22/17 06:15 INR 1.82 (0.93-1.08) H 10/22/17 06:15 APTT 36.6 Seconds (25.1-36.5) H 10/22/17 06:15 - Constitutional Appears: Non-toxic, No Acute Distress, Chronically Ill - Head Exam Head Exam: ATRAUMATIC, NORMAL INSPECTION, NORMOCEPHALIC - Eye Exam Eye Exam: EOMI, Normal appearance, PERRL - ENT Exam ENT Exam: Mucous Membranes Moist, Normal Oropharynx - Respiratory Exam Respiratory Exam: Clear to Ausculation Bilateral, NORMAL BREATHING PATTERN - Cardiovascular Exam Cardiovascular Exam: REGULAR RHYTHM, +S1, +S2 - GI/Abdominal Exam GI & Abdominal Exam: Soft, Normal Bowel Sounds Additional comments: Ostomy in place with soft stool in bag - Extremities Exam Extremities Exam: Normal Capillary Refill, Normal Inspection - Back Exam Additional comments: Healing sacral ulcer 6 x4 cm, ischial ulcer measuring 2x2 cm, no abnormal drainage noted. - Neurological Exam Neurological Exam: Alert, Awake, CN II-XII Intact, Oriented x3 - Psychiatric Exam Psychiatric exam: Normal Affect, Normal Mood - Skin Skin Exam: Dry, Intact, Warm Assessment and Plan - Assessment and Plan (Free Text) Assessment: 52 y o male PMhx paraplegia, IVDA, T2 epidural abscess, ileostomy in place since Jan 2017, sacral ulcers, indwelling haque, who presented to the ED complaining of worsening bed sores. Pt admitted for management of stage IV sacral ulcer. Found on bone scan 10/21/17 to have possible osteomyelitis of the right ischium. Pt thus being treated for osteomyelitis. 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 Afebrile, vitals stable, continue to monitor No leukocytosis, continue to trend CRP elevated, ESR 105 Procalcitonin low Blood cx NG after 48 hrs Urine cx growing Proteus; sensitive to Bactrim, Ertapenem, Gentamicin, Meropenem , Zosyn Sacral ulcer wound cx growing Enterobacter; resistant to Cefazolin, otherwise pansensitive Wound care consulted, recs appreciated Surgery consulted (Dr. Askew), recs appreciated ID consulted, recs appreciated Tylenol prn for pain Zofran prn for nausea C/w aztreonam IVPB (day #3) as per ID C/w baclofen Pt was unable to fit in MRI machine due to LE contracture 2/2 paraplegia, bone scan performed, possible osteomyelitis in R ischium, likely to need IV antibiotics for 4-6 weeks of therapy C/w air mattress, turn pt q 2 h Further wound management recs as per wound care, surgery, and ID Per surgery: no plan for surgical intervention at this time Regular diet Will continue to monitor pt Ileostomy, chronic Hx since Jan 2017 as per patient Surgery consulted, f/u recs Hx paraplegia/immobility Pt on coumadin at home, INR 1.82 today, continue to trend Warfarin 8 mg daily, adjust as needed based on pt's INR, bridge with lovenox for 72 hrs or until INR is therapeutic F/u PT/OT recs Hx IVDA Urine drug screen negative GI/DVT ppx: Protonix/Warfarin, Lovenox Pt seen, examined with, and plan discussed with Dr. Reynoso, attending. Sebastian Aguilar DO PGY-1, Vegetable Farmworker Pager #[phone] <Jarrod Reynoso - Last Filed: 10/25/17 10:51> Objective - Vital Signs/Intake and Output Vital Signs (last 24 hours): Temp Pulse Resp BP Pulse Ox 97.7 F 58 L 20 131/89 100 10/25/17 06:00 10/25/17 06:00 10/25/17 06:00 10/25/17 06:00 10/25/17 06:00 Intake and Output: 10/25/17 10/25/17 06:59 18:59 Intake Total 540 Output Total 1900 Balance -1360 - Medications Medications: Current Medications Acetaminophen (Tylenol 325mg Tab) 650 mg PO Q6H PRN PRN Reason: Other Last Admin: 10/25/17 08:23 Dose: 650 mg Baclofen (Lioresal) 20 mg PO BID PRN PRN Reason: Pain, moderate (4-7) Last Admin: 10/25/17 08:23 Dose: 20 mg Collagenase (Santyl) 0 gm TOP BID [facility] Last Admin: 10/25/17 10:01 Dose: 1 unit Enoxaparin Sodium (Lovenox) 100 mg SC Q12H [facility] PRN Reason: Protocol Last Admin: 10/25/17 10:26 Dose: Not Given Gabapentin (Neurontin) 300 mg PO DAILY [facility] PRN Reason: Protocol Stop: 10/26/17 23:59 Last Admin: 10/25/17 10:24 Dose: Not Given Aztreonam (Azactam 1 Gm) 100 mls @ 100 mls/hr IVPB Q8 [facility] PRN Reason: Protocol Last Admin: 10/25/17 08:22 Dose: 100 mls/hr Ondansetron HCl (Zofran Inj) 4 mg IVP Q4 PRN PRN Reason: Nausea/Vomiting Pantoprazole Sodium (Protonix Ec Tab) 40 mg PO ACB [facility] Last Admin: 10/25/17 06:43 Dose: 40 mg Sodium Hypochlorite (Dakins Solution 0.25%) 1 ml TOP DAILY [facility] Last Admin: 10/25/17 10:01 Dose: 1 ml - Labs Labs: 10/25/17 06:30 10/25/17 06:30 PT 20.1 SECONDS (9.4-12.5) H 10/25/17 06:30 INR 1.73 (0.93-1.08) H 10/25/17 06:30 APTT 38.9 Seconds (25.1-36.5) H 10/25/17 06:30 Attending/Attestation - Attestation I have personally seen and examined this patient.: Yes I have fully participated in the care of the patient.: Yes I have reviewed all pertinent clinical information, including history, physical exam and plan: Yes Notes (Text): 10/25/17 10:48 Medical record note made by the resident after discussion with my direction and input after the patient was personally seen and examined by me. I have reviewed the chart and agree that the record accurately reflects by personal performance of the history, physical exam, data review, and medical decision-making, in the course for the patient. I have also personally directed the plan of care. 52 y old male with PMH of paraplegia due to T2 epidural abscess, SP Colostomy , since Jan 2017, sacral ulcers, chronic indwelling Haque, was admitted with infected decubitus stage IV sacral ulcer in the coccyx area. 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 Wound cultures are growing enterobacer aeurogenes , on IV antibiotic Azectum as per ID. H/O DVT on bridging lovenox and warfarin as INR is not therapeutic.We will monitor INR. Management plan was discussed in detail with patient. Education was provided.
--- NOTE | 2017-10-22 19:32 | CP.PCM.PN ---
Subjective - Date & Time of Evaluation Date of Evaluation: 10/22/17 Time of Evaluation: 18:30 - Subjective Subjective: Infectious Disease Follow Up: October 22, 2017 52 yo male with extensive medical history including paraplegia, IVDA, T2 epidural abscess, ileostomy, and chronic sacral decubiti presenting with worsening sacral decubiti ulcerations. He states that he has discharge and malodor at the ulceration sites. The patient is bedbound. Bone scan done. Results showing possible osteomyelitis of the right ischium. Objective - Vital Signs/Intake and Output Vital Signs (last 24 hours): Temp Pulse Resp BP Pulse Ox 97.7 F 64 18 119/59 L 100 10/22/17 14:00 10/22/17 14:00 10/22/17 14:00 10/22/17 14:00 10/22/17 14:00 - Medications Medications: Current Medications Acetaminophen (Tylenol 325mg Tab) 650 mg PO Q6H PRN PRN Reason: Other Last Admin: 10/22/17 17:23 Dose: 650 mg Baclofen (Lioresal) 20 mg PO BID PRN PRN Reason: Pain, moderate (4-7) Last Admin: 10/22/17 02:46 Dose: 20 mg Collagenase (Santyl) 0 gm TOP BID [facility] Last Admin: 10/22/17 18:27 Dose: 1 unit Enoxaparin Sodium (Lovenox) 100 mg SC Q12H [facility] PRN Reason: Protocol Last Admin: 10/22/17 09:49 Dose: 100 mg Aztreonam (Azactam 1 Gm) 100 mls @ 100 mls/hr IVPB Q8 [facility]AL PRN Reason: Protocol Stop: 10/23/17 22:01 Last Admin: 10/22/17 13:32 Dose: 100 mls/hr Ondansetron HCl (Zofran Inj) 4 mg IVP Q4 PRN PRN Reason: Nausea/Vomiting Pantoprazole Sodium (Protonix Ec Tab) 40 mg PO ACB [facility] Last Admin: 10/22/17 08:21 Dose: 40 mg Sodium Hypochlorite (Dakins Solution 0.25%) 1 ml TOP DAILY [facility] Last Admin: 10/22/17 09:49 Dose: 1 ml Warfarin Sodium (Coumadin) 5 mg PO 1800 [facility]AL PRN Reason: Protocol Last Admin: 10/22/17 17:20 Dose: 5 mg Warfarin Sodium (Coumadin) 3 mg PO 1800 DONAL PRN Reason: Protocol Last Admin: 10/22/17 17:20 Dose: 3 mg - Labs Labs: 10/22/17 07:15 10/22/17 07:15 PT 21.2 SECONDS (9.4-12.5) H 10/22/17 06:15 INR 1.82 (0.93-1.08) H 10/22/17 06:15 APTT 36.6 Seconds (25.1-36.5) H 10/22/17 06:15 - Constitutional Appears: No Acute Distress, Cachectic, Chronically Ill - Head Exam Head Exam: ATRAUMATIC, NORMOCEPHALIC - Eye Exam Eye Exam: EOMI, PERRL Pupil Exam: NORMAL ACCOMODATION, PERRL - ENT Exam ENT Exam: Mucous Membranes Moist, Normal External Ear Exam, TM's Normal Bilaterally - Neck Exam Neck Exam: Full ROM, Normal Inspection - Respiratory Exam Respiratory Exam: Clear to Ausculation Bilateral, Rhonchi, NORMAL BREATHING PATTERN. absent: Rales, Wheezes - Cardiovascular Exam Cardiovascular Exam: REGULAR RHYTHM, RRR, +S1, +S2 - GI/Abdominal Exam GI & Abdominal Exam: Soft, Normal Bowel Sounds. absent: Distended, Tenderness - Extremities Exam Additional comments: paraplegic, contracted extremities all four limbs. Cachetic. - Back Exam Additional comments: pt has a stage IV sacral ulcer over his right ischium. pt has a stage I ulver on his left and right buttocks - Neurological Exam Neurological Exam: Alert, Awake, CN II-XII Intact, Oriented x3 - Psychiatric Exam Psychiatric exam: Normal Affect, Normal Mood - Skin Additional comments: As above. Assessment and Plan - Assessment and Plan (Free Text) Assessment: 52 yo male with extensive sacral decubiti stage IV in additional to other medical issues. Patient with known rash with PCN. Unclear why Zosyn was given in PCN allergy. 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 For now would start with Aztreonam and obtain wound cultures (hopefully done before any antibiotics were started.). Supportive and wound care. Surgery evaluation for potential debridement. Can extend coverage if MRSA is found. There may need to be a desensitization to carbapenems if resistant gram negatives are found in cultures. Gram negative rods in two cultures. Results of the bone scan show questionable osteomyelitis findings of the right ischium. Sacral wound with Enterobacter. Thank you for allowing me to participate in the care of the patient, we will follow with you.
[2017-10-23] MEDS: Aztreonam 1 Gm in NS 100mL 100 ML IVPB SCH ×3 (05:53→21:40)
[2017-10-23] MEDS: Pantoprazole 40 mg EC Tab PO SCH (07:00)
[2017-10-23 07:37] LABS: BASO # 0.03 K/mm3 (0.0-2.0); BASO % 0.6 % (0.0-3.0); EOS # 0.1 (0.0-0.7); EOS % 1.8 % (1.5-5.0); GRAN # 2.74 (1.4-6.5); GRAN % 55.2 % (50.0-68.0); HEMOGLOBIN 11.5 g/dL (14.0-18.0); LYMPH # 1.8 (1.2-3.4); LYMPH % 36.1 % (22.0-35.0); MEAN CELL VOLUME 79.2 fl (80.0-105.0); MEAN CORPUSCULAR HEMOGLOBIN 24.9 pg (25.0-35.0); MEAN CORPUSCULAR HGB CONC 31.4 g/dl (31.0-37.0); MEAN PLATELET VOLUME 10.7 fl (7.0-11.0); MONO # 0.3 (0.1-0.6); MONO % 6.3 % (1.0-6.0); RBC 4.62 10^6/uL (3.5-6.1); RED CELL DISTRIBUTION WIDTH 15.7 % (11.5-14.5)
[2017-10-23 07:53] LABS: INR 2.22 (0.93-1.08); PARTIAL THROMBOPLASTIN TIME 37.3 Seconds (25.1-36.5)
[2017-10-23 07:55] LABS: ALB/GLOB RATIO 0.9 (1.1-1.8); ALBUMIN 3.8 g/dL (3.0-4.8); ALT/SGPT 24 U/L (7-56); AST/SGOT 24 U/L (17-59); BLOOD UREA NITROGEN 14 mg/dL (7-21); CALCIUM 9.3 mg/dL (8.4-10.5); GFR AFRICAN-AMERICAN > 60; GFR NON-AFRICAN AMERICAN > 60
--- NOTE | 2017-10-23 08:02 | CP.PCM.PN ---
Subjective - Date & Time of Evaluation Date of Evaluation: 10/23/17 Time of Evaluation: 07:51 - Subjective Subjective: General Surgery Progress Note for: Dr. Askew Pt was seen and examined this morning at bedside. He states that he now has a burning sensation which started yesterday from the back of his hip. He states that he has not felt any fevers or chills. Dressing and packing was changed at bedside. Pt denies any other acute problems or pain but states that he typically has no sensation 2/2 pmhx of paraplegia. Objective - Vital Signs/Intake and Output Vital Signs (last 24 hours): Temp Pulse Resp BP Pulse Ox 97.5 F L 59 L 20 121/80 99 10/23/17 06:00 10/23/17 06:00 10/23/17 06:00 10/23/17 06:00 10/23/17 06:00 Intake and Output: 10/23/17 10/23/17 06:59 18:59 Intake Total 1340 Output Total 1000 Balance 340 - Medications Medications: Current Medications Acetaminophen (Tylenol 325mg Tab) 650 mg PO Q6H PRN PRN Reason: Other Last Admin: 10/23/17 05:55 Dose: 650 mg Baclofen (Lioresal) 20 mg PO BID PRN PRN Reason: Pain, moderate (4-7) Last Admin: 10/22/17 23:34 Dose: 20 mg Collagenase (Santyl) 0 gm TOP BID [facility] Last Admin: 10/22/17 18:27 Dose: 1 unit Enoxaparin Sodium (Lovenox) 100 mg SC Q12H [facility] PRN Reason: Protocol Last Admin: 10/22/17 21:23 Dose: 100 mg Aztreonam (Azactam 1 Gm) 100 mls @ 100 mls/hr IVPB Q8 [facility] PRN Reason: Protocol Stop: 10/23/17 22:01 Last Admin: 10/23/17 05:53 Dose: 100 mls/hr Ondansetron HCl (Zofran Inj) 4 mg IVP Q4 PRN PRN Reason: Nausea/Vomiting Pantoprazole Sodium (Protonix Ec Tab) 40 mg PO ACB [facility] Last Admin: 10/23/17 07:00 Dose: 40 mg Sodium Hypochlorite (Dakins Solution 0.25%) 1 ml TOP DAILY [facility] Last Admin: 10/22/17 09:49 Dose: 1 ml Warfarin Sodium (Coumadin) 5 mg PO 1800 [facility] PRN Reason: Protocol Last Admin: 10/22/17 17:20 Dose: 5 mg Warfarin Sodium (Coumadin) 3 mg PO 1800 [facility]AL PRN Reason: Protocol Last Admin: 10/22/17 17:20 Dose: 3 mg - Labs Labs: 10/23/17 07:00 10/22/17 07:15 PT 21.2 SECONDS (9.4-12.5) H 10/22/17 06:15 INR 1.82 (0.93-1.08) H 10/22/17 06:15 APTT 36.6 Seconds (25.1-36.5) H 10/22/17 06:15 - Constitutional Appears: Well, Non-toxic, No Acute Distress - Head Exam Head Exam: ATRAUMATIC, NORMOCEPHALIC - Eye Exam Eye Exam: EOMI, Normal appearance - Respiratory Exam Respiratory Exam: NORMAL BREATHING PATTERN. absent: Accessory Muscle Use, Respiratory Distress - Cardiovascular Exam Cardiovascular Exam: +S1, +S2 - GI/Abdominal Exam GI & Abdominal Exam: Soft, Normal Bowel Sounds. absent: Distended, Firm, Guarding, Rigid, Tenderness - Neurological Exam Neurological Exam: Alert, Oriented x3 Additional comments: paraplegic. - Psychiatric Exam Psychiatric exam: Normal Affect, Normal Mood - Skin Additional comments: 3cm long x 4 cm wide x 7cm deep stage 4 ulcer on the right ischial spine with worsening foul odor today, large 10 cm x 9cm stage 1 on the sacrum, 3cm x 3cm stage 2 ulcer on the right lateral sacrum/superior gluteal area Assessment and Plan - Assessment and Plan (Free Text) Assessment: Pt is a 52yo M presents with paraplegia 2/2 history of spinal abscess, with chronic ischial and sacral ulcers Plan: - Bone scan 10/21 - R ischial osteo possible - Potentially Mon to OR for debridement - Wound culture - Enterobacter. f/u ID recs - Cont daily dressing changes - Air mattress, turn q2 - Further recs per Dr. Askew
[2017-10-23] MEDS: Collagenase 250 Units/gm Ointment(30 gm) TOP SCH (10:24)
[2017-10-23] MEDS: Dakin's Topical 0.25%-Half Strength (480 ml) TOP SCH (10:25)
--- NOTE | 2017-10-23 13:08 | CP.PCM.PN ---
<Laci Madden - Last Filed: 10/23/17 13:00> Subjective - Date & Time of Evaluation Date of Evaluation: 10/23/17 Time of Evaluation: 07:00 - Subjective Subjective: Medicine progress note for Dr. Edgardo Madden PGY 2, IM Patient seen and examined at bedside. No acute events overnight, patient states that he is doing well and that he is not in any pain. Denies any fevers or chills subjectively. Objective - Vital Signs/Intake and Output Vital Signs (last 24 hours): Temp Pulse Resp BP Pulse Ox 97.5 F L 59 L 20 121/80 99 10/23/17 06:00 10/23/17 06:00 10/23/17 06:00 10/23/17 06:00 10/23/17 06:00 Intake and Output: 10/23/17 10/23/17 06:59 18:59 Intake Total 1540 Output Total 1000 Balance 540 - Medications Medications: Current Medications Acetaminophen (Tylenol 325mg Tab) 650 mg PO Q6H PRN PRN Reason: Other Last Admin: 10/23/17 05:55 Dose: 650 mg Baclofen (Lioresal) 20 mg PO BID PRN PRN Reason: Pain, moderate (4-7) Last Admin: 10/22/17 23:34 Dose: 20 mg Collagenase (Santyl) 0 gm TOP BID [facility] Last Admin: 10/23/17 10:24 Dose: 1 unit Enoxaparin Sodium (Lovenox) 100 mg SC Q12H [facility] PRN Reason: Protocol Last Admin: 10/22/17 21:23 Dose: 100 mg Gabapentin (Neurontin) 300 mg PO DAILY [facility] PRN Reason: Protocol Stop: 10/26/17 23:59 Last Admin: 10/23/17 10:26 Dose: 300 mg Aztreonam (Azactam 1 Gm) 100 mls @ 100 mls/hr IVPB Q8 [facility] PRN Reason: Protocol Stop: 10/23/17 22:01 Last Admin: 10/23/17 05:53 Dose: 100 mls/hr Ondansetron HCl (Zofran Inj) 4 mg IVP Q4 PRN PRN Reason: Nausea/Vomiting Pantoprazole Sodium (Protonix Ec Tab) 40 mg PO ACB [facility] Last Admin: 10/23/17 07:00 Dose: 40 mg Sodium Hypochlorite (Dakins Solution 0.25%) 1 ml TOP DAILY [facility] Last Admin: 10/23/17 10:25 Dose: 1 ml Warfarin Sodium (Coumadin) 5 mg PO 1800 [facility] PRN Reason: Protocol Last Admin: 10/22/17 17:20 Dose: 5 mg Warfarin Sodium (Coumadin) 2.5 mg PO 1800 [facility] PRN Reason: Protocol - Labs Labs: 10/23/17 07:00 10/23/17 07:00 PT 26.0 SECONDS (9.4-12.5) H 10/23/17 07:10 INR 2.22 (0.93-1.08) H 10/23/17 07:10 APTT 37.3 Seconds (25.1-36.5) H 10/23/17 07:10 - Constitutional Appears: Well - Head Exam Head Exam: ATRAUMATIC, NORMAL INSPECTION, NORMOCEPHALIC - Eye Exam Eye Exam: EOMI, Normal appearance, PERRL Pupil Exam: NORMAL ACCOMODATION, PERRL - ENT Exam ENT Exam: Mucous Membranes Moist, Normal Exam - Neck Exam Neck Exam: Full ROM, Normal Inspection. absent: Lymphadenopathy - Respiratory Exam Respiratory Exam: Clear to Ausculation Bilateral, NORMAL BREATHING PATTERN - Cardiovascular Exam Cardiovascular Exam: REGULAR RHYTHM, +S1, +S2. absent: Murmur - GI/Abdominal Exam GI & Abdominal Exam: Soft, Normal Bowel Sounds. absent: Tenderness Additional comments: Ostomy in place with soft stool in bag - Extremities Exam Extremities Exam: Full ROM, Normal Capillary Refill, Normal Inspection. absent : Joint Swelling, Pedal Edema - Back Exam Back Exam: NORMAL INSPECTION Additional comments: Healing sacral ulcer 6 x4 cm, ischial ulcer measuring 2x2 cm, no abnormal drainage noted. - Neurological Exam Neurological Exam: Alert, Awake, CN II-XII Intact, Normal Gait, Oriented x3 - Psychiatric Exam Psychiatric exam: Normal Affect, Normal Mood - Skin Skin Exam: Dry, Intact, Normal Color, Warm Assessment and Plan - Assessment and Plan (Free Text) Assessment: 52 year old male pertinent history of chronic sacral ulcers, chronic UTI, paraplegia, and previous DVT presented with worsening bed sores. On admission, patient was afebrile with stable vitals, and no other SIRS criteria. Wound culture is now growing enterobacter, pansensitive to cipro, bactrim, ertapenem, gentamicin, merrem, and zosyn; urine culture growing resistant proteus in chronic indwelling catheter. Patient also was found to have subtherapeutic INR on Coumadin. Procal and blood cultures negative Stage IV Sacral Ulcer/Osteomyelitis in R Ischium - Wound care consulted, recs appreciated - Surgery consulted (Dr. Askew) - debride on Thursday. - ID consulted, recs appreciated - Tylenol prn for pain - Zofran prn for nausea - C/w aztreonam IVPB (day #4) as per ID - C/w baclofen - Pt was unable to fit in MRI machine due to LE contracture 2/2 paraplegia, bone scan performed, possible osteomyelitis in R ischium, likely to need IV antibiotics for 4-6 weeks of therapy - C/w air mattress, turn pt q 2 h - Further wound management recs as per wound care, surgery, and ID Chronic UTI - Will change haque and get fresh UA and URine Cx Subtherapeutic INR - Resolved - Patient needs to discontinue Warfarin for procedure on Thursday, is being kept on therpeutic dose of Loveonx - Change dose to 7.5 for discharge Ileostomy, chronic - Hx since Jan 2017 as per patient - Surgery consulted, f/u recs Hx paraplegia/immobility - PT following Hx IVDA Urine drug screen negative GI/DVT ppx: Protonix/Lovenox (Warfarin on hold) Pt seen, examined with, and plan discussed with Dr. Reynoso, attending. <Jarrod Reynoso - Last Filed: 10/25/17 10:54> Objective - Vital Signs/Intake and Output Vital Signs (last 24 hours): Temp Pulse Resp BP Pulse Ox 97.7 F 58 L 20 131/89 100 10/25/17 06:00 10/25/17 06:00 10/25/17 06:00 10/25/17 06:00 10/25/17 06:00 Intake and Output: 10/25/17 10/25/17 06:59 18:59 Intake Total 540 Output Total 1900 Balance -1360 - Medications Medications: Current Medications Acetaminophen (Tylenol 325mg Tab) 650 mg PO Q6H PRN PRN Reason: Other Last Admin: 10/25/17 08:23 Dose: 650 mg Baclofen (Lioresal) 20 mg PO BID PRN PRN Reason: Pain, moderate (4-7) Last Admin: 10/25/17 08:23 Dose: 20 mg Collagenase (Santyl) 0 gm TOP BID [facility] Last Admin: 10/25/17 10:01 Dose: 1 unit Enoxaparin Sodium (Lovenox) 100 mg SC Q12H [facility] PRN Reason: Protocol Last Admin: 10/25/17 10:26 Dose: Not Given Gabapentin (Neurontin) 300 mg PO DAILY [facility] PRN Reason: Protocol Stop: 10/26/17 23:59 Last Admin: 10/25/17 10:24 Dose: Not Given Aztreonam (Azactam 1 Gm) 100 mls @ 100 mls/hr IVPB Q8 [facility] PRN Reason: Protocol Last Admin: 10/25/17 08:22 Dose: 100 mls/hr Ondansetron HCl (Zofran Inj) 4 mg IVP Q4 PRN PRN Reason: Nausea/Vomiting Pantoprazole Sodium (Protonix Ec Tab) 40 mg PO ACB [facility] Last Admin: 10/25/17 06:43 Dose: 40 mg Sodium Hypochlorite (Dakins Solution 0.25%) 1 ml TOP DAILY [facility] Last Admin: 10/25/17 10:01 Dose: 1 ml - Labs Labs: 10/25/17 06:30 10/25/17 06:30 PT 20.1 SECONDS (9.4-12.5) H 10/25/17 06:30 INR 1.73 (0.93-1.08) H 10/25/17 06:30 APTT 38.9 Seconds (25.1-36.5) H 10/25/17 06:30 Attending/Attestation - Attestation I have personally seen and examined this patient.: Yes I have fully participated in the care of the patient.: Yes I have reviewed all pertinent clinical information, including history, physical exam and plan: Yes Notes (Text): 10/25/17 10:54 Medical record note made by the resident after discussion with my direction and input after the patient was personally seen and examined by me. I have reviewed the chart and agree that the record accurately reflects by personal performance of the history, physical exam, data review, and medical decision-making, in the course for the patient. I have also personally directed the plan of care.
--- NOTE | 2017-10-23 14:56 | CP.PCM.PN ---
Subjective - Date & Time of Evaluation Date of Evaluation: 10/23/17 Time of Evaluation: 14:30 - Subjective Subjective: Infectious Disease Follow Up: October 23, 2017 52 yo male with extensive medical history including paraplegia, IVDA, T2 epidural abscess, ileostomy, and chronic sacral decubiti presenting with worsening sacral decubiti ulcerations. He states that he has discharge and malodor at the ulceration sites. The patient is bedbound. Bone scan done. Results showing possible osteomyelitis of the right ischium. No new issues at this time. Objective - Vital Signs/Intake and Output Vital Signs (last 24 hours): Temp Pulse Resp BP Pulse Ox 97.5 F L 59 L 20 121/80 99 10/23/17 06:00 10/23/17 06:00 10/23/17 06:00 10/23/17 06:00 10/23/17 06:00 Intake and Output: 10/23/17 10/23/17 06:59 18:59 Intake Total 1540 Output Total 1000 Balance 540 - Medications Medications: Current Medications Acetaminophen (Tylenol 325mg Tab) 650 mg PO Q6H PRN PRN Reason: Other Last Admin: 10/23/17 05:55 Dose: 650 mg Baclofen (Lioresal) 20 mg PO BID PRN PRN Reason: Pain, moderate (4-7) Last Admin: 10/22/17 23:34 Dose: 20 mg Collagenase (Santyl) 0 gm TOP BID [facility] Last Admin: 10/23/17 10:24 Dose: 1 unit Enoxaparin Sodium (Lovenox) 100 mg SC Q12H [facility] PRN Reason: Protocol Gabapentin (Neurontin) 300 mg PO DAILY [facility] PRN Reason: Protocol Stop: 10/26/17 23:59 Last Admin: 10/23/17 10:26 Dose: 300 mg Aztreonam (Azactam 1 Gm) 100 mls @ 100 mls/hr IVPB Q8 [facility] PRN Reason: Protocol Stop: 10/23/17 22:01 Last Admin: 10/23/17 05:53 Dose: 100 mls/hr Ondansetron HCl (Zofran Inj) 4 mg IVP Q4 PRN PRN Reason: Nausea/Vomiting Pantoprazole Sodium (Protonix Ec Tab) 40 mg PO ACB [facility] Last Admin: 10/23/17 07:00 Dose: 40 mg Sodium Hypochlorite (Dakins Solution 0.25%) 1 ml TOP DAILY [facility] Last Admin: 10/23/17 10:25 Dose: 1 ml Warfarin Sodium (Coumadin) 5 mg PO 1800 [facility] PRN Reason: Protocol Last Admin: 10/22/17 17:20 Dose: 5 mg Warfarin Sodium (Coumadin) 2.5 mg PO 1800 [facility] PRN Reason: Protocol - Labs Labs: 10/23/17 07:00 10/23/17 07:00 PT 26.0 SECONDS (9.4-12.5) H 10/23/17 07:10 INR 2.22 (0.93-1.08) H 10/23/17 07:10 APTT 37.3 Seconds (25.1-36.5) H 10/23/17 07:10 - Constitutional Appears: No Acute Distress, Cachectic, Chronically Ill - Head Exam Head Exam: ATRAUMATIC, NORMOCEPHALIC - Eye Exam Eye Exam: EOMI, PERRL Pupil Exam: NORMAL ACCOMODATION, PERRL - ENT Exam ENT Exam: Mucous Membranes Moist, Normal External Ear Exam, TM's Normal Bilaterally - Neck Exam Neck Exam: Full ROM, Normal Inspection - Respiratory Exam Respiratory Exam: Clear to Ausculation Bilateral, NORMAL BREATHING PATTERN. absent: Rales, Rhonchi, Wheezes - Cardiovascular Exam Cardiovascular Exam: REGULAR RHYTHM, RRR, +S1, +S2 - GI/Abdominal Exam GI & Abdominal Exam: Soft, Normal Bowel Sounds. absent: Distended, Tenderness - Extremities Exam Additional comments: paraplegic, contracted extremities all four limbs. Cachetic. - Back Exam Additional comments: pt has a stage IV sacral ulcer over his right ischium. pt has a stage I ulver on his left and right buttocks - Neurological Exam Neurological Exam: Alert, Awake, CN II-XII Intact, Oriented x3 - Psychiatric Exam Psychiatric exam: Normal Affect, Normal Mood - Skin Additional comments: As above. Assessment and Plan - Assessment and Plan (Free Text) Assessment: 52 yo male with extensive sacral decubiti stage IV in additional to other medical issues. Patient with known rash with PCN. Unclear why Zosyn was given in PCN allergy. 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 For now would start with Aztreonam and obtain wound cultures (hopefully done before any antibiotics were started.). Supportive and wound care. Surgery evaluation for potential debridement. Can extend coverage if MRSA is found. There may need to be a desensitization to carbapenems if resistant gram negatives are found in cultures. Gram negative rods in two cultures. Results of the bone scan show questionable osteomyelitis findings of the right ischium. Sacral wound with Enterobacter. May need 6 weeks of IV antibiotics for questionable osteomyelitis. Thank you for allowing me to participate in the care of the patient, we will follow with you.
[2017-10-23] MEDS: Enoxaparin 100 mg Syringe SC SCH (15:57)
[2017-10-24] MEDS: Enoxaparin 100 mg Syringe SC SCH ×2 (01:34→21:22)
[2017-10-24] MEDS: Pantoprazole 40 mg EC Tab PO SCH (07:04)
[2017-10-24 07:25] LABS: BASO # 0.03 K/mm3 (0.0-2.0); BASO % 0.5 % (0.0-3.0); EOS # 0.1 (0.0-0.7); EOS % 1.5 % (1.5-5.0); GRAN # 3.91 (1.4-6.5); GRAN % 58.8 % (50.0-68.0); HEMOGLOBIN 12.9 g/dL (14.0-18.0); LYMPH # 2.1 (1.2-3.4); MEAN CELL VOLUME 80.1 fl (80.0-105.0); MEAN CORPUSCULAR HEMOGLOBIN 25.4 pg (25.0-35.0); MEAN CORPUSCULAR HGB CONC 31.7 g/dl (31.0-37.0); MEAN PLATELET VOLUME 10.4 fl (7.0-11.0); MONO # 0.5 (0.1-0.6); MONO % 7.2 % (1.0-6.0); RBC 5.08 10^6/uL (3.5-6.1); RED CELL DISTRIBUTION WIDTH 15.8 % (11.5-14.5); WHITE BLOOD COUNT 6.7 10^3/ul (4.5-11.0)
--- NOTE | 2017-10-24 07:36 | CP.PCM.PN ---
Subjective - Date & Time of Evaluation Date of Evaluation: 10/24/17 Time of Evaluation: 07:31 - Subjective Subjective: Surgery: Dr. Askew Pt seen and examined. No acute overnight events. States he feels ok & denies any complaints at this time. Tolerating diet, well functioning ostomy. Denies F/ C. Objective - Vital Signs/Intake and Output Vital Signs (last 24 hours): Temp Pulse Resp BP Pulse Ox 97.5 F L 62 20 110/65 99 10/23/17 22:00 10/23/17 22:00 10/23/17 22:00 10/23/17 22:00 10/23/17 22:00 Intake and Output: 10/24/17 10/24/17 06:59 18:59 Intake Total 980 Output Total 2225 Balance -1245 - Medications Medications: Current Medications Acetaminophen (Tylenol 325mg Tab) 650 mg PO Q6H PRN PRN Reason: Other Last Admin: 10/23/17 21:37 Dose: 650 mg Baclofen (Lioresal) 20 mg PO BID PRN PRN Reason: Pain, moderate (4-7) Last Admin: 10/23/17 21:36 Dose: 20 mg Collagenase (Santyl) 0 gm TOP BID [facility] Last Admin: 10/23/17 10:24 Dose: 1 unit Enoxaparin Sodium (Lovenox) 100 mg SC Q12H [facility] PRN Reason: Protocol Last Admin: 10/24/17 01:34 Dose: 100 mg Gabapentin (Neurontin) 300 mg PO DAILY [facility] PRN Reason: Protocol Stop: 10/26/17 23:59 Last Admin: 10/23/17 10:26 Dose: 300 mg Ondansetron HCl (Zofran Inj) 4 mg IVP Q4 PRN PRN Reason: Nausea/Vomiting Pantoprazole Sodium (Protonix Ec Tab) 40 mg PO ACB [facility] Last Admin: 10/24/17 07:04 Dose: 40 mg Sodium Hypochlorite (Dakins Solution 0.25%) 1 ml TOP DAILY [facility] Last Admin: 10/23/17 10:25 Dose: 1 ml Warfarin Sodium (Coumadin) 5 mg PO 1800 [facility] PRN Reason: Protocol Last Admin: 10/22/17 17:20 Dose: 5 mg Warfarin Sodium (Coumadin) 2.5 mg PO 1800 [facility] PRN Reason: Protocol - Labs Labs: 10/24/17 06:30 10/23/17 07:00 PT 26.0 SECONDS (9.4-12.5) H 10/23/17 07:10 INR 2.22 (0.93-1.08) H 10/23/17 07:10 APTT 37.3 Seconds (25.1-36.5) H 10/23/17 07:10 - Constitutional Appears: Well, No Acute Distress - Head Exam Head Exam: ATRAUMATIC, NORMOCEPHALIC - ENT Exam ENT Exam: Mucous Membranes Moist - Respiratory Exam Respiratory Exam: NORMAL BREATHING PATTERN - Cardiovascular Exam Cardiovascular Exam: RRR - GI/Abdominal Exam GI & Abdominal Exam: Soft. absent: Tenderness Additional comments: LLQ ostomy in place with stool in bag - Back Exam Additional comments: non-stageable sacral ulcer & stage 4 ischial ulcer with packing in place - Neurological Exam Neurological Exam: Alert, Awake, Oriented x3 - Skin Skin Exam: Dry, Warm Assessment and Plan - Assessment and Plan (Free Text) Assessment: 52M with stage 4 ischial ulcer r/o osteo, & unstageable sacral ulcer Plan: - continue local wound care with Santyl to sacrum & Dakins packings to ischial ulcer - continue air mattress & off loading - plan for OR on Mon/Tues for possible debridement pending decreased INR - d/w Dr. Azar Badillo
[2017-10-24 07:45] LABS: ALB/GLOB RATIO 0.9 (1.1-1.8); ALBUMIN 4.3 g/dL (3.0-4.8); ALT/SGPT 36 U/L (7-56); AST/SGOT 32 U/L (17-59); BLOOD UREA NITROGEN 15 mg/dL (7-21); CALCIUM 9.8 mg/dL (8.4-10.5); GFR AFRICAN-AMERICAN > 60; GFR NON-AFRICAN AMERICAN > 60; INR 2.14 (0.93-1.08)
--- NOTE | 2017-10-24 13:28 | CP.PCM.PN ---
<Sebastian Aguilar - Last Filed: 10/24/17 13:25> Subjective - Date & Time of Evaluation Date of Evaluation: 10/24/17 Time of Evaluation: 08:50 - Subjective Subjective: Sebastian Aguilar DO PGY-1, Production Team Member Medicine Progress Note Pt seen and examined at bedside this am. States he feels well, denies any acute complaints currently. No acute events reported overnight. Objective - Vital Signs/Intake and Output Vital Signs (last 24 hours): Temp Pulse Resp BP Pulse Ox 98.1 F 59 L 20 132/81 100 10/24/17 07:58 10/24/17 07:58 10/24/17 07:58 10/24/17 07:58 10/24/17 07:58 Intake and Output: 10/24/17 10/24/17 06:59 18:59 Intake Total 980 Output Total 2225 Balance -1245 - Medications Medications: Current Medications Acetaminophen (Tylenol 325mg Tab) 650 mg PO Q6H PRN PRN Reason: Other Last Admin: 10/24/17 11:00 Dose: 650 mg Baclofen (Lioresal) 20 mg PO BID PRN PRN Reason: Pain, moderate (4-7) Last Admin: 10/24/17 11:01 Dose: 20 mg Collagenase (Santyl) 0 gm TOP BID [facility] Last Admin: 10/23/17 10:24 Dose: 1 unit Enoxaparin Sodium (Lovenox) 100 mg SC Q12H [facility] PRN Reason: Protocol Gabapentin (Neurontin) 300 mg PO DAILY [facility] PRN Reason: Protocol Stop: 10/26/17 23:59 Last Admin: 10/24/17 10:57 Dose: 300 mg Ondansetron HCl (Zofran Inj) 4 mg IVP Q4 PRN PRN Reason: Nausea/Vomiting Pantoprazole Sodium (Protonix Ec Tab) 40 mg PO ACB [facility] Last Admin: 10/24/17 07:04 Dose: 40 mg Sodium Hypochlorite (Dakins Solution 0.25%) 1 ml TOP DAILY [facility] Last Admin: 10/23/17 10:25 Dose: 1 ml Warfarin Sodium (Coumadin) 5 mg PO 1800 [facility] PRN Reason: Protocol Last Admin: 10/22/17 17:20 Dose: 5 mg Warfarin Sodium (Coumadin) 2.5 mg PO 1800 [facility] PRN Reason: Protocol - Labs Labs: 10/24/17 06:30 10/24/17 06:30 PT 25.0 SECONDS (9.4-12.5) H 10/24/17 06:30 INR 2.14 (0.93-1.08) H 10/24/17 06:30 APTT 41.0 Seconds (25.1-36.5) H 10/24/17 06:30 - Constitutional Appears: Non-toxic, No Acute Distress - Head Exam Head Exam: ATRAUMATIC, NORMAL INSPECTION, NORMOCEPHALIC - Eye Exam Eye Exam: EOMI, Normal appearance, PERRL - ENT Exam ENT Exam: Mucous Membranes Moist, Normal Oropharynx - Neck Exam Neck Exam: Full ROM, Normal Inspection - Respiratory Exam Respiratory Exam: Clear to Ausculation Bilateral, NORMAL BREATHING PATTERN - Cardiovascular Exam Cardiovascular Exam: REGULAR RHYTHM, +S1, +S2 - GI/Abdominal Exam GI & Abdominal Exam: Soft, Normal Bowel Sounds Additional comments: Ostomy in place with soft stool in bag - Extremities Exam Extremities Exam: Normal Capillary Refill, Normal Inspection Additional comments: Pt paraplegic - Back Exam Additional comments: Healing sacral ulcer 6x4 cm, ischial ulcer measuring 2x2 cm, no abnormal drainage noted. - Neurological Exam Neurological Exam: Alert, Awake, CN II-XII Intact, Oriented x3 - Psychiatric Exam Psychiatric exam: Normal Affect, Normal Mood - Skin Skin Exam: Dry, Intact, Warm Assessment and Plan - Assessment and Plan (Free Text) Assessment: 52 year old male pertinent history of chronic sacral ulcers, chronic UTI, paraplegia, and previous DVT presented with worsening bed sores. On admission, patient was afebrile with stable vitals, and no other SIRS criteria. Wound culture is now growing enterobacter, pansensitive to cipro, bactrim, ertapenem, gentamicin, merrem, and zosyn; urine culture growing resistant proteus in chronic indwelling catheter. Patient also was found to have subtherapeutic INR on Coumadin. Procal and blood cultures negative. 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 Askew) - debridement on Mon/Tues as per surgery - ID consulted, recs appreciated - Tylenol prn for pain - Zofran prn for nausea - C/w aztreonam IVPB (day #5) as per ID - C/w baclofen - Pt was unable to fit in MRI machine due to LE contracture 2/2 paraplegia, bone scan performed, possible osteomyelitis in R ischium, likely to need IV antibiotics for 4-6 weeks of therapy - C/w air mattress, turn pt q 2 h - Further wound management recs as per wound care, surgery, and ID Chronic UTI -Repeat U/a, urine cx pending Subtherapeutic INR - Resolved - Patient needs to discontinue Warfarin for procedure on Thursday, is being kept on therpeutic dose of Lovenox 100 mg bid subQ - Change dose to 7.5 for discharge Ileostomy, chronic - Hx since Jan 2017 as per patient - Surgery consulted, f/u recs Hx paraplegia/immobility - PT following Hx IVDA Urine drug screen negative GI/DVT ppx: Protonix/Lovenox (Warfarin on hold) Pt seen, examined with, and plan discussed with Dr. Reynoso, attending. Sebastian Aguilar DO PGY-1, Production Team Member Pager #[phone] <Jarrod Reynoso - Last Filed: 10/24/17 14:25> Objective - Vital Signs/Intake and Output Vital Signs (last 24 hours): Temp Pulse Resp BP Pulse Ox 98.1 F 59 L 20 132/81 100 10/24/17 07:58 10/24/17 07:58 10/24/17 07:58 10/24/17 07:58 10/24/17 07:58 Intake and Output: 10/24/17 10/24/17 06:59 18:59 Intake Total 980 Output Total 2225 Balance -1245 - Medications Medications: Current Medications Acetaminophen (Tylenol 325mg Tab) 650 mg PO Q6H PRN PRN Reason: Other Last Admin: 10/24/17 11:00 Dose: 650 mg Baclofen (Lioresal) 20 mg PO BID PRN PRN Reason: Pain, moderate (4-7) Last Admin: 10/24/17 11:01 Dose: 20 mg Collagenase (Santyl) 0 gm TOP BID [facility] Last Admin: 10/23/17 10:24 Dose: 1 unit Enoxaparin Sodium (Lovenox) 100 mg SC Q12H [facility] PRN Reason: Protocol Gabapentin (Neurontin) 300 mg PO DAILY [facility] PRN Reason: Protocol Stop: 10/26/17 23:59 Last Admin: 10/24/17 10:57 Dose: 300 mg Ondansetron HCl (Zofran Inj) 4 mg IVP Q4 PRN PRN Reason: Nausea/Vomiting Pantoprazole Sodium (Protonix Ec Tab) 40 mg PO ACB [facility] Last Admin: 10/24/17 07:04 Dose: 40 mg Sodium Hypochlorite (Dakins Solution 0.25%) 1 ml TOP DAILY [facility] Last Admin: 10/23/17 10:25 Dose: 1 ml Warfarin Sodium (Coumadin) 5 mg PO 1800 [facility] PRN Reason: Protocol Last Admin: 10/22/17 17:20 Dose: 5 mg Warfarin Sodium (Coumadin) 2.5 mg PO 1800 [facility] PRN Reason: Protocol - Labs Labs: 10/24/17 06:30 10/24/17 06:30 PT 25.0 SECONDS (9.4-12.5) H 10/24/17 06:30 INR 2.14 (0.93-1.08) H 10/24/17 06:30 APTT 41.0 Seconds (25.1-36.5) H 10/24/17 06:30 Attending/Attestation - Attestation I have personally seen and examined this patient.: Yes I have fully participated in the care of the patient.: Yes I have reviewed all pertinent clinical information, including history, physical exam and plan: Yes Notes (Text): 10/24/17 14:22 Medical record note made by the resident after discussion with my direction and input after the patient was personally seen and examined by me. I have reviewed the chart and agree that the record accurately reflects by personal performance of the history, physical exam, data review, and medical decision-making, in the course for the patient. I have also personally directed the plan of care. 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
[2017-10-24] MEDS: Aztreonam 1 Gm in NS 100mL 100 ML IVPB SCH ×2 (14:52→21:18)
[2017-10-24] MEDS: Dakin's Topical 0.25%-Half Strength (480 ml) TOP SCH ×2 (14:55→19:36)
[2017-10-24] MEDS: Collagenase 250 Units/gm Ointment(30 gm) TOP SCH ×3 (14:55→19:37)
--- NOTE | 2017-10-24 15:54 | CP.PCM.PN ---
Subjective - Date & Time of Evaluation Date of Evaluation: 10/24/17 Time of Evaluation: 15:00 - Subjective Subjective: Infectious Disease Follow Up: October 24, 2017 52 yo male with extensive medical history including paraplegia, IVDA, T2 epidural abscess, ileostomy, and chronic sacral decubiti presenting with worsening sacral decubiti ulcerations. He states that he has discharge and malodor at the ulceration sites. The patient is bedbound. Bone scan done. Results showing possible osteomyelitis of the right ischium. For debridement of the sacral decubiti by Dr. Azar Chery/[place]. No new issues at this time. Objective - Vital Signs/Intake and Output Vital Signs (last 24 hours): Temp Pulse Resp BP Pulse Ox 97.5 F L 61 20 106/65 98 10/24/17 15:05 10/24/17 15:05 10/24/17 15:05 10/24/17 15:05 10/24/17 15:05 Intake and Output: 10/24/17 10/24/17 06:59 18:59 Intake Total 980 Output Total 2225 Balance -1245 - Medications Medications: Current Medications Acetaminophen (Tylenol 325mg Tab) 650 mg PO Q6H PRN PRN Reason: Other Last Admin: 10/24/17 11:00 Dose: 650 mg Baclofen (Lioresal) 20 mg PO BID PRN PRN Reason: Pain, moderate (4-7) Last Admin: 10/24/17 11:01 Dose: 20 mg Collagenase (Santyl) 0 gm TOP BID [facility] Last Admin: 10/24/17 14:55 Dose: 1 unit Enoxaparin Sodium (Lovenox) 100 mg SC Q12H [facility] PRN Reason: Protocol Gabapentin (Neurontin) 300 mg PO DAILY [facility] PRN Reason: Protocol Stop: 10/26/17 23:59 Last Admin: 10/24/17 10:57 Dose: 300 mg Aztreonam (Azactam 1 Gm) 100 mls @ 100 mls/hr IVPB Q8 [facility] PRN Reason: Protocol Stop: 10/24/17 22:59 Last Admin: 10/24/17 14:52 Dose: 100 mls/hr Ondansetron HCl (Zofran Inj) 4 mg IVP Q4 PRN PRN Reason: Nausea/Vomiting Pantoprazole Sodium (Protonix Ec Tab) 40 mg PO ACB [facility] Last Admin: 10/24/17 07:04 Dose: 40 mg Sodium Hypochlorite (Dakins Solution 0.25%) 1 ml TOP DAILY [facility] Last Admin: 10/24/17 14:55 Dose: 1 ml Warfarin Sodium (Coumadin) 5 mg PO 1800 [facility] PRN Reason: Protocol Last Admin: 10/22/17 17:20 Dose: 5 mg Warfarin Sodium (Coumadin) 2.5 mg PO 1800 [facility] PRN Reason: Protocol - Labs Labs: 10/24/17 06:30 10/24/17 06:30 PT 25.0 SECONDS (9.4-12.5) H 10/24/17 06:30 INR 2.14 (0.93-1.08) H 10/24/17 06:30 APTT 41.0 Seconds (25.1-36.5) H 10/24/17 06:30 - Constitutional Appears: Non-toxic, No Acute Distress, Chronically Ill - Head Exam Head Exam: ATRAUMATIC, NORMOCEPHALIC - Eye Exam Eye Exam: EOMI, PERRL Pupil Exam: NORMAL ACCOMODATION, PERRL - ENT Exam ENT Exam: Mucous Membranes Moist, Normal External Ear Exam, TM's Normal Bilaterally - Neck Exam Neck Exam: Full ROM, Normal Inspection - Respiratory Exam Respiratory Exam: Clear to Ausculation Bilateral, NORMAL BREATHING PATTERN. absent: Rales, Rhonchi, Wheezes - Cardiovascular Exam Cardiovascular Exam: REGULAR RHYTHM, RRR, +S1, +S2 - GI/Abdominal Exam GI & Abdominal Exam: Soft, Normal Bowel Sounds. absent: Distended, Tenderness - Extremities Exam Additional comments: paraplegic, contracted extremities all four limbs. Cachetic. - Back Exam Additional comments: pt has a stage IV sacral ulcer over his right ischium. pt has a stage I ulver on his left and right buttocks - Neurological Exam Neurological Exam: Alert, Awake, CN II-XII Intact, Oriented x3 - Psychiatric Exam Psychiatric exam: Normal Affect, Normal Mood - Skin Additional comments: As above. Assessment and Plan - Assessment and Plan (Free Text) Assessment: 52 yo male with extensive sacral decubiti stage IV in additional to other medical issues. Patient with known rash with PCN. Unclear why Zosyn was given in PCN allergy. 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 For now would start with Aztreonam and obtain wound cultures (hopefully done before any antibiotics were started.). Supportive and wound care. Surgery evaluation for potential debridement. Can extend coverage if MRSA is found. There may need to be a desensitization to carbapenems if resistant gram negatives are found in cultures. Gram negative rods in two cultures. Results of the bone scan show questionable osteomyelitis findings of the right ischium. Sacral wound with Enterobacter. May need 6 weeks of IV antibiotics for questionable osteomyelitis. Possible OR debridement on Thursday or Thursday. Thank you for allowing me to participate in the care of the patient, we will follow with you.
[2017-10-25] MEDS: Pantoprazole 40 mg EC Tab PO SCH (06:43)
[2017-10-25 07:01] LABS: BASO # 0.03 K/mm3 (0.0-2.0); BASO % 0.5 % (0.0-3.0); EOS # 0.1 (0.0-0.7); EOS % 1.4 % (1.5-5.0); GRAN # 3.83 (1.4-6.5); GRAN % 61.6 % (50.0-68.0); HEMOGLOBIN 12.5 g/dL (14.0-18.0); LYMPH # 1.8 (1.2-3.4); LYMPH % 29.6 % (22.0-35.0); MEAN CELL VOLUME 80.1 fl (80.0-105.0); MEAN CORPUSCULAR HEMOGLOBIN 25.6 pg (25.0-35.0); MEAN PLATELET VOLUME 10.3 fl (7.0-11.0); MONO # 0.4 (0.1-0.6); MONO % 6.9 % (1.0-6.0); RBC 4.88 10^6/uL (3.5-6.1); RED CELL DISTRIBUTION WIDTH 15.9 % (11.5-14.5); WHITE BLOOD COUNT 6.2 10^3/ul (4.5-11.0)
[2017-10-25 07:16] LABS: INR 1.73 (0.93-1.08); PARTIAL THROMBOPLASTIN TIME 38.9 Seconds (25.1-36.5); PROTHROMBIN TIME 20.1 SECONDS (9.4-12.5)
--- NOTE | 2017-10-25 07:16 | CP.PCM.PN ---
Subjective - Date & Time of Evaluation Date of Evaluation: 10/25/17 Time of Evaluation: 06:50 - Subjective Subjective: General Surgery Note for Dr. Askew Patient seen and examined at bedside. No acute event overnight. Patient has no complaints this morning. He is tolerating diet. He reports colostomy is functioning properly. Patient states nursing has maggy changing dressing daily. Patient will be NPO past MN in preparation for OR tomorrow. Objective - Vital Signs/Intake and Output Vital Signs (last 24 hours): Temp Pulse Resp BP Pulse Ox 97.7 F 58 L 20 131/89 100 10/25/17 06:00 10/25/17 06:00 10/25/17 06:00 10/25/17 06:00 10/25/17 06:00 Intake and Output: 10/25/17 10/25/17 06:59 18:59 Intake Total 540 Output Total 1900 Balance -1360 - Medications Medications: Current Medications Acetaminophen (Tylenol 325mg Tab) 650 mg PO Q6H PRN PRN Reason: Other Last Admin: 10/24/17 22:51 Dose: 650 mg Baclofen (Lioresal) 20 mg PO BID PRN PRN Reason: Pain, moderate (4-7) Last Admin: 10/24/17 22:51 Dose: 20 mg Collagenase (Santyl) 0 gm TOP BID [facility] Last Admin: 10/24/17 19:37 Dose: Not Given Enoxaparin Sodium (Lovenox) 100 mg SC Q12H [facility] PRN Reason: Protocol Last Admin: 10/24/17 21:22 Dose: 100 mg Gabapentin (Neurontin) 300 mg PO DAILY [facility] PRN Reason: Protocol Stop: 10/26/17 23:59 Last Admin: 10/24/17 10:57 Dose: 300 mg Ondansetron HCl (Zofran Inj) 4 mg IVP Q4 PRN PRN Reason: Nausea/Vomiting Pantoprazole Sodium (Protonix Ec Tab) 40 mg PO ACB [facility] Last Admin: 10/25/17 06:43 Dose: 40 mg Sodium Hypochlorite (Dakins Solution 0.25%) 1 ml TOP DAILY [facility] Last Admin: 10/24/17 19:36 Dose: Not Given Warfarin Sodium (Coumadin) 5 mg PO 1800 [facility] PRN Reason: Protocol Last Admin: 10/22/17 17:20 Dose: 5 mg Warfarin Sodium (Coumadin) 2.5 mg PO 1800 [facility] PRN Reason: Protocol - Labs Labs: 10/24/17 06:30 10/24/17 06:30 PT 25.0 SECONDS (9.4-12.5) H 10/24/17 06:30 INR 2.14 (0.93-1.08) H 10/24/17 06:30 APTT 41.0 Seconds (25.1-36.5) H 10/24/17 06:30 - Additional Findings Additional findings: - Constitutional Appears: Well, No Acute Distress - Head Exam Head Exam: ATRAUMATIC, NORMOCEPHALIC - ENT Exam ENT Exam: Mucous Membranes Moist - Respiratory Exam Respiratory Exam: NORMAL BREATHING PATTERN - Cardiovascular Exam Cardiovascular Exam: RRR - GI/Abdominal Exam GI & Abdominal Exam: Soft. absent: Tenderness Additional comments: LLQ colostomy functioning properly with stool in bag - Back Exam Additional comments: non-stageable sacral ulcer & stage 4 ischial ulcer - Neurological Exam Neurological Exam: Alert, Awake, Oriented x3 - Skin Skin Exam: Dry, Warm Assessment and Plan - Assessment and Plan (Free Text) Assessment: 52M with stage 4 ischial ulcer with possible osteomyelitis & unstageable sacral ulcer Plan: - continue local wound care with Santyl to sacrum & Dakins packings to ischial ulcer - continue air mattress & off loading - Iv antibiotics (Aztreonam) as per ID; stating patient may need for 6 weeks for osteomyelitis - NPO Past MN - plan for OR on Mon for debridement - f/u INR - HOLD morning dose of Lovenox - Further recommendations as per Dr. Azar Smith PGY2
[2017-10-25 07:25] LABS: ALB/GLOB RATIO 0.9 (1.1-1.8); ALBUMIN 4.1 g/dL (3.0-4.8); ALT/SGPT 43 U/L (7-56); AST/SGOT 39 U/L (17-59); BLOOD UREA NITROGEN 15 mg/dL (7-21); CALCIUM 9.5 mg/dL (8.4-10.5); GFR AFRICAN-AMERICAN > 60; GFR NON-AFRICAN AMERICAN > 60
[2017-10-25] MEDS: Aztreonam 1 Gm in NS 100mL 100 ML IVPB SCH ×3 (08:22→22:09)
[2017-10-25] MEDS: Dakin's Topical 0.25%-Half Strength (480 ml) TOP SCH (10:01)
[2017-10-25] MEDS: Collagenase 250 Units/gm Ointment(30 gm) TOP SCH ×2 (10:01→20:17)
[2017-10-25] MEDS: Enoxaparin 100 mg Syringe SC SCH ×2 (10:26→22:38)
--- NOTE | 2017-10-25 11:01 | CP.PCM.PN ---
<Telly Cowart - Last Filed: 10/25/17 11:15> Subjective - Date & Time of Evaluation Date of Evaluation: 10/25/17 Time of Evaluation: 07:30 - Subjective Subjective: Progress Note for Hospitalist Dr. Edgardo Cowart PGY2 Patient seen and examined at bedside in no acute distress. States he slept well through the night and offers no complains. Denies chest pain, shortness of breath, weakness, dizziness, abdominal pain, nausea, vomiting, diarrhea, headaches, pain at site of infection, fevers, chills. Objective - Vital Signs/Intake and Output Vital Signs (last 24 hours): Temp Pulse Resp BP Pulse Ox 97.7 F 58 L 20 131/89 100 10/25/17 06:00 10/25/17 06:00 10/25/17 06:00 10/25/17 06:00 10/25/17 06:00 Intake and Output: 10/25/17 10/25/17 06:59 18:59 Intake Total 540 Output Total 1900 Balance -1360 - Medications Medications: Current Medications Acetaminophen (Tylenol 325mg Tab) 650 mg PO Q6H PRN PRN Reason: Other Last Admin: 10/25/17 08:23 Dose: 650 mg Baclofen (Lioresal) 20 mg PO BID PRN PRN Reason: Pain, moderate (4-7) Last Admin: 10/25/17 08:23 Dose: 20 mg Collagenase (Santyl) 0 gm TOP BID [facility] Last Admin: 10/25/17 10:01 Dose: 1 unit Enoxaparin Sodium (Lovenox) 100 mg SC Q12H [facility] PRN Reason: Protocol Last Admin: 10/25/17 10:26 Dose: Not Given Gabapentin (Neurontin) 300 mg PO DAILY [facility] PRN Reason: Protocol Stop: 10/26/17 23:59 Last Admin: 10/25/17 10:24 Dose: Not Given Aztreonam (Azactam 1 Gm) 100 mls @ 100 mls/hr IVPB Q8 [facility] PRN Reason: Protocol Last Admin: 10/25/17 08:22 Dose: 100 mls/hr Ondansetron HCl (Zofran Inj) 4 mg IVP Q4 PRN PRN Reason: Nausea/Vomiting Pantoprazole Sodium (Protonix Ec Tab) 40 mg PO ACB [facility] Last Admin: 10/25/17 06:43 Dose: 40 mg Sodium Hypochlorite (Dakins Solution 0.25%) 1 ml TOP DAILY [facility] Last Admin: 10/25/17 10:01 Dose: 1 ml - Labs Labs: 10/25/17 06:30 10/25/17 06:30 PT 20.1 SECONDS (9.4-12.5) H 10/25/17 06:30 INR 1.73 (0.93-1.08) H 10/25/17 06:30 APTT 38.9 Seconds (25.1-36.5) H 10/25/17 06:30 - Head Exam Head Exam: ATRAUMATIC, NORMAL INSPECTION, NORMOCEPHALIC - Eye Exam Eye Exam: EOMI, Normal appearance - ENT Exam ENT Exam: Mucous Membranes Moist, Normal Exam - Respiratory Exam Respiratory Exam: Clear to Ausculation Bilateral, NORMAL BREATHING PATTERN. absent: Rhonchi, Wheezes - Cardiovascular Exam Cardiovascular Exam: REGULAR RHYTHM, +S1, +S2 - GI/Abdominal Exam GI & Abdominal Exam: Soft, Normal Bowel Sounds Additional comments: colostomy bag draining well - Extremities Exam Extremities Exam: absent: Normal Inspection - Back Exam Back Exam: absent: NORMAL INSPECTION Additional comments: non-stageable sacral ulcer & stage 4 ischial ulcer - Neurological Exam Neurological Exam: Alert, Awake, Oriented x3 - Psychiatric Exam Psychiatric exam: Normal Affect, Normal Mood - Skin Skin Exam: Normal Color, Warm Assessment and Plan - Assessment and Plan (Free Text) Assessment: 52 year old male pertinent history of chronic sacral ulcers, chronic UTI, paraplegia, and previous DVT presented with worsening bed sores. On admission, patient was afebrile with stable vitals, and no other SIRS criteria. Wound culture is now growing enterobacter, pansensitive to cipro, bactrim, ertapenem, gentamicin, merrem, and zosyn; urine culture growing resistant proteus in chronic indwelling catheter. Patient also was found to have subtherapeutic INR on Coumadin. Procal and blood cultures negative. 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 Askew) - debridement on Mon as per surgery; patient will receive evening dose of lovenox as per surgery with holding of the morning dose - ID consulted, recs appreciated - Tylenol prn for pain - Zofran prn for nausea - C/w aztreonam IVPB (day #6) as per ID - C/w baclofen - Pt was unable to fit in MRI machine due to LE contracture 2/2 paraplegia, bone scan performed, possible osteomyelitis in R ischium, likely to need antibiotics for 4-6 weeks of therapy; patient cx shows sensitivity to ciprofloxacin. - C/w air mattress, turn pt q 2 h - Further wound management recs as per wound care, surgery, and ID Subtherapeutic INR - Resolved - Patient needs to discontinue Warfarin for procedure on Thursday, is being kept on therpeutic dose of Lovenox 100 mg bid subQ - patient will receive evening dose of lovenox as per surgery with holding of the morning dose - Change dose to 7.5 for discharge Ileostomy, chronic - Hx since Jan 2017 as per patient - Surgery consulted, f/u recs Hx paraplegia/immobility - PT following Hx IVDA - Urine drug screen negative GI/DVT ppx: Protonix/Lovenox (Warfarin on hold) Disposition plan: After debridement, can discharge patient with ciprofloxacin. Geological Sample Tester involvement needed so patient can get better wound care at home. Due to lack of proper wound care patient will continue to have infections. Pt seen, examined with, and plan discussed with Dr. Reynoso, attending. <Jarrod Reynoso - Last Filed: 10/25/17 12:33> Objective - Vital Signs/Intake and Output Vital Signs (last 24 hours): Temp Pulse Resp BP Pulse Ox 97.7 F 58 L 20 131/89 100 10/25/17 06:00 10/25/17 06:00 10/25/17 06:00 10/25/17 06:00 10/25/17 06:00 Intake and Output: 10/25/17 10/25/17 06:59 18:59 Intake Total 540 Output Total 1900 Balance -1360 - Medications Medications: Current Medications Acetaminophen (Tylenol 325mg Tab) 650 mg PO Q6H PRN PRN Reason: Other Last Admin: 10/25/17 08:23 Dose: 650 mg Baclofen (Lioresal) 20 mg PO BID PRN PRN Reason: Pain, moderate (4-7) Last Admin: 10/25/17 08:23 Dose: 20 mg Collagenase (Santyl) 0 gm TOP BID [facility] Last Admin: 10/25/17 10:01 Dose: 1 unit Enoxaparin Sodium (Lovenox) 100 mg SC Q12H [facility] PRN Reason: Protocol Last Admin: 10/25/17 10:26 Dose: Not Given Gabapentin (Neurontin) 300 mg PO DAILY [facility] PRN Reason: Protocol Stop: 10/26/17 23:59 Last Admin: 10/25/17 10:24 Dose: Not Given Aztreonam (Azactam 1 Gm) 100 mls @ 100 mls/hr IVPB Q8 [facility] PRN Reason: Protocol Last Admin: 10/25/17 08:22 Dose: 100 mls/hr Ondansetron HCl (Zofran Inj) 4 mg IVP Q4 PRN PRN Reason: Nausea/Vomiting Pantoprazole Sodium (Protonix Ec Tab) 40 mg PO ACB [facility] Last Admin: 10/25/17 06:43 Dose: 40 mg Sodium Hypochlorite (Dakins Solution 0.25%) 1 ml TOP DAILY [facility] Last Admin: 10/25/17 10:01 Dose: 1 ml - Labs Labs: 10/25/17 06:30 10/25/17 06:30 PT 20.1 SECONDS (9.4-12.5) H 10/25/17 06:30 INR 1.73 (0.93-1.08) H 10/25/17 06:30 APTT 38.9 Seconds (25.1-36.5) H 10/25/17 06:30 Attending/Attestation - Attestation I have personally seen and examined this patient.: Yes I have fully participated in the care of the patient.: Yes I have reviewed all pertinent clinical information, including history, physical exam and plan: Yes Notes (Text): 10/25/17 12:32 Medical record note made by the resident after discussion with my direction and input after the patient was personally seen and examined by me. I have reviewed the chart and agree that the record accurately reflects by personal performance of the history, physical exam, data review, and medical decision-making, in the course for the patient. I have also personally directed the plan of care. 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
--- NOTE | 2017-10-25 17:43 | CP.PCM.PN ---
Subjective - Date & Time of Evaluation Date of Evaluation: 10/25/17 Time of Evaluation: 16:30 - Subjective Subjective: Infectious Disease Follow Up: October 25, 2017 52 yo male with extensive medical history including paraplegia, IVDA, T2 epidural abscess, ileostomy, and chronic sacral decubiti presenting with worsening sacral decubiti ulcerations. He states that he has discharge and malodor at the ulceration sites. The patient is bedbound. Bone scan done. Results showing possible osteomyelitis of the right ischium. For debridement of the sacral decubiti by Dr. Askew possibly Miri/Navneet. No new issues at this time. Objective - Vital Signs/Intake and Output Vital Signs (last 24 hours): Temp Pulse Resp BP Pulse Ox 97.7 F 58 L 20 131/89 100 10/25/17 06:00 10/25/17 06:00 10/25/17 06:00 10/25/17 06:00 10/25/17 06:00 Intake and Output: 10/25/17 10/25/17 06:59 18:59 Intake Total 540 Output Total 1900 Balance -1360 - Medications Medications: Current Medications Acetaminophen (Tylenol 325mg Tab) 650 mg PO Q6H PRN PRN Reason: Other Last Admin: 10/25/17 08:23 Dose: 650 mg Baclofen (Lioresal) 20 mg PO BID PRN PRN Reason: Pain, moderate (4-7) Last Admin: 10/25/17 08:23 Dose: 20 mg Collagenase (Santyl) 0 gm TOP BID [facility] Last Admin: 10/25/17 10:01 Dose: 1 unit Enoxaparin Sodium (Lovenox) 100 mg SC Q12H [facility] PRN Reason: Protocol Last Admin: 10/25/17 10:26 Dose: Not Given Gabapentin (Neurontin) 300 mg PO DAILY [facility] PRN Reason: Protocol Stop: 10/26/17 23:59 Last Admin: 10/25/17 10:24 Dose: Not Given Aztreonam (Azactam 1 Gm) 100 mls @ 100 mls/hr IVPB Q8 [facility] PRN Reason: Protocol Last Admin: 10/25/17 13:29 Dose: 100 mls/hr Ondansetron HCl (Zofran Inj) 4 mg IVP Q4 PRN PRN Reason: Nausea/Vomiting Pantoprazole Sodium (Protonix Ec Tab) 40 mg PO ACB [facility] Last Admin: 10/25/17 06:43 Dose: 40 mg Sodium Hypochlorite (Dakins Solution 0.25%) 1 ml TOP DAILY [facility] Last Admin: 10/25/17 10:01 Dose: 1 ml - Labs Labs: 10/25/17 06:30 10/25/17 06:30 PT 20.1 SECONDS (9.4-12.5) H 10/25/17 06:30 INR 1.73 (0.93-1.08) H 10/25/17 06:30 APTT 38.9 Seconds (25.1-36.5) H 10/25/17 06:30 - Constitutional Appears: No Acute Distress, Chronically Ill - Head Exam Head Exam: ATRAUMATIC, NORMOCEPHALIC - Eye Exam Eye Exam: EOMI, PERRL Pupil Exam: NORMAL ACCOMODATION, PERRL - ENT Exam ENT Exam: Mucous Membranes Moist, Normal External Ear Exam, TM's Normal Bilaterally - Neck Exam Neck Exam: Full ROM, Normal Inspection - Respiratory Exam Respiratory Exam: Clear to Ausculation Bilateral, NORMAL BREATHING PATTERN. absent: Rales, Rhonchi, Wheezes - Cardiovascular Exam Cardiovascular Exam: REGULAR RHYTHM, RRR, +S1, +S2 - GI/Abdominal Exam GI & Abdominal Exam: Soft, Tenderness, Normal Bowel Sounds Additional comments: colostomy bag draining well - Extremities Exam Additional comments: paraplegic, contracted extremities all four limbs. Cachetic. - Back Exam Back Exam: NORMAL INSPECTION Additional comments: pt has a stage IV sacral ulcer over his right ischium. pt has a stage I ulver on his left and right buttocks - Neurological Exam Neurological Exam: Alert, Awake, CN II-XII Intact, Oriented x3 - Psychiatric Exam Psychiatric exam: Normal Affect, Normal Mood - Skin Skin Exam: Normal Color, Warm Assessment and Plan - Assessment and Plan (Free Text) Assessment: 52 yo male with extensive sacral decubiti stage IV in additional to other medical issues. Patient with known rash with PCN. Unclear why Zosyn was given in PCN allergy. 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 For now would start with Aztreonam and obtain wound cultures (hopefully done before any antibiotics were started.). Supportive and wound care. Surgery evaluation for potential debridement. Can extend coverage if MRSA is found. There may need to be a desensitization to carbapenems if resistant gram negatives are found in cultures. Gram negative rods in two cultures. Results of the bone scan show questionable osteomyelitis findings of the right ischium. Sacral wound with Enterobacter. May need 6 weeks of IV antibiotics for questionable osteomyelitis. Possible OR debridement on Thursday or Thursday. Thank you for allowing me to participate in the care of the patient, we will follow with you.
[2017-10-26] MEDS: Aztreonam 1 Gm in NS 100mL 100 ML IVPB SCH ×3 (05:39→21:19)
[2017-10-26 07:14] LABS: BASO # 0.02 K/mm3 (0.0-2.0); BASO % 0.3 % (0.0-3.0); EOS # 0.1 (0.0-0.7); EOS % 1.3 % (1.5-5.0); GRAN # 4.11 (1.4-6.5); GRAN % 59.8 % (50.0-68.0); HEMOGLOBIN 11.5 g/dL (14.0-18.0); LYMPH % 28.4 % (22.0-35.0); MEAN CELL VOLUME 80.1 fl (80.0-105.0); MEAN CORPUSCULAR HEMOGLOBIN 25.1 pg (25.0-35.0); MEAN CORPUSCULAR HGB CONC 31.3 g/dl (31.0-37.0); MEAN PLATELET VOLUME 10.4 fl (7.0-11.0); MONO # 0.7 (0.1-0.6); MONO % 10.2 % (1.0-6.0); RBC 4.58 10^6/uL (3.5-6.1); RED CELL DISTRIBUTION WIDTH 16.2 % (11.5-14.5); WHITE BLOOD COUNT 6.9 10^3/ul (4.5-11.0)
[2017-10-26 07:29] LABS: ALT/SGPT 42 U/L (7-56); AST/SGOT 33 U/L (17-59); BLOOD UREA NITROGEN 19 mg/dL (7-21); CALCIUM 9.2 mg/dL (8.4-10.5); GFR AFRICAN-AMERICAN > 60; GFR NON-AFRICAN AMERICAN > 60; INR 1.34 (0.93-1.08); PARTIAL THROMBOPLASTIN TIME 29.6 Seconds (25.1-36.5); PROTHROMBIN TIME 15.5 SECONDS (9.4-12.5)
--- NOTE | 2017-10-26 07:40 | CP.PCM.PN ---
<Hank Tee - Last Filed: 10/26/17 18:20> Subjective - Date & Time of Evaluation Date of Evaluation: 10/26/17 Time of Evaluation: 07:39 - Subjective Subjective: Hank Tee DO PGY1 Internal Medicine Financial Aids Officer - Hospital Progress note Pt. seen this AM at bedside; no acute events reported overnight. He will be going to OR today for debridement of sacral wound. Lovenox was held this AM; Pt. was NPO past midnight. 12 system ROS was unremarkable, VSS, CBC/CMP wnl. Objective - Vital Signs/Intake and Output Vital Signs (last 24 hours): Temp Pulse Resp BP Pulse Ox 98.1 F 73 20 117/75 97 10/25/17 22:00 10/25/17 22:00 10/25/17 22:00 10/25/17 22:00 10/25/17 22:00 Intake and Output: 10/26/17 10/26/17 06:59 18:59 Intake Total 620 Output Total 1750 Balance -1130 - Medications Medications: Current Medications Acetaminophen (Tylenol 325mg Tab) 650 mg PO Q6H PRN PRN Reason: Other Last Admin: 10/26/17 07:36 Dose: 650 mg Baclofen (Lioresal) 20 mg PO BID PRN PRN Reason: Pain, moderate (4-7) Last Admin: 10/26/17 07:36 Dose: 20 mg Collagenase (Santyl) 0 gm TOP BID [facility] Last Admin: 10/25/17 20:17 Dose: Not Given Enoxaparin Sodium (Lovenox) 100 mg SC Q12H [facility] PRN Reason: Protocol Last Admin: 10/25/17 22:38 Dose: Not Given Gabapentin (Neurontin) 300 mg PO DAILY [facility] PRN Reason: Protocol Stop: 10/26/17 23:59 Last Admin: 10/25/17 10:24 Dose: Not Given Aztreonam (Azactam 1 Gm) 100 mls @ 100 mls/hr IVPB Q8 [facility] PRN Reason: Protocol Last Admin: 10/26/17 05:39 Dose: 100 mls/hr Ondansetron HCl (Zofran Inj) 4 mg IVP Q4 PRN PRN Reason: Nausea/Vomiting Pantoprazole Sodium (Protonix Ec Tab) 40 mg PO ACB [facility] Last Admin: 10/25/17 06:43 Dose: 40 mg Sodium Hypochlorite (Dakins Solution 0.25%) 1 ml TOP DAILY [facility] Last Admin: 10/25/17 10:01 Dose: 1 ml - Labs Labs: 10/26/17 06:55 10/26/17 06:55 PT 15.5 SECONDS (9.4-12.5) H 10/26/17 06:55 INR 1.34 (0.93-1.08) H 10/26/17 06:55 APTT 29.6 Seconds (25.1-36.5) 10/26/17 06:55 - Head Exam Head Exam: ATRAUMATIC, NORMAL INSPECTION, NORMOCEPHALIC - Eye Exam Eye Exam: EOMI, Normal appearance - ENT Exam ENT Exam: Mucous Membranes Moist, Normal Exam - Respiratory Exam Respiratory Exam: Clear to Ausculation Bilateral, NORMAL BREATHING PATTERN. absent: Rhonchi, Wheezes - Cardiovascular Exam Cardiovascular Exam: REGULAR RHYTHM, +S1, +S2 - GI/Abdominal Exam GI & Abdominal Exam: Soft, nontender, bowel sounds present; colostomy bag present w/ no issue; draining well. - Extremities Exam Extremities Exam: absent: Normal Inspection - Back Exam Back Exam: absent: NORMAL INSPECTION Additional comments: non-stageable sacral ulcer & stage 4 ischial ulcer; dressing CDI - Neurological Exam Neurological Exam: Alert, Awake, Oriented x3 - Psychiatric Exam Psychiatric exam: Normal Affect, Normal Mood - Skin Skin Exam: Normal Color, Warm Assessment and Plan - Assessment and Plan (Free Text) Assessment: 52 year old male pertinent history of chronic sacral ulcers, chronic UTI, paraplegia, and previous DVT presented with worsening bed sores. On admission, patient was afebrile with stable vitals, and no other SIRS criteria. Wound culture is now growing enterobacter, pansensitive to cipro, bactrim, ertapenem, gentamicin, merrem, and zosyn; urine culture growing resistant proteus in chronic indwelling catheter. Patient also was found to have subtherapeutic INR on Coumadin. Procal and blood cultures negative. 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 s/p Wound debridement - Wound care consulted, recs appreciated - Surgery consulted (Dr. Askew) - debridement today; lovenox held this AM; NPO after midnight - Can resume anticoagulation tomorrow AM (POD#1) - ID consulted, recs appreciated - Tylenol prn for pain - Zofran prn for nausea - C/w aztreonam IVPB (day #7) as per ID; total therapy for 6wks - C/w baclofen - Pt was unable to fit in MRI machine due to LE contracture 2/2 paraplegia, bone scan performed, possible osteomyelitis in R ischium, likely to need antibiotics for 4-6 weeks of therapy; patient cx shows sensitivity to ciprofloxacin. - C/w air mattress, turn pt q 2 h - Further wound management recs as per wound care, surgery, and ID Subtherapeutic INR - Resolved - Patient needs to discontinue Warfarin for procedure on Thursday, is being kept on therpeutic dose of Lovenox 100 mg bid subQ; lovenox dose was held this AM; - Will return to coumadin after OR and for discharge - Change dose to 7.5 for discharge Ileostomy, chronic - Hx since Jan 2017 as per patient - Surgery consulted, f/u recs Hx paraplegia/immobility - PT following Hx IVDA - Urine drug screen negative GI/DVT ppx: Protonix/Lovenox (Warfarin on hold) Disposition plan: Patient is post debridement today; will continue to monitor how patient tolerates post op. Waist Presser involvement needed so patient can get better wound care at home. Due to lack of proper wound care patient will continue to have infections. <Miky Hou - Last Filed: 10/27/17 08:02> Objective - Vital Signs/Intake and Output Vital Signs (last 24 hours): Temp Pulse Resp BP Pulse Ox 98.1 F 64 18 98/65 L 97 10/26/17 22:11 10/26/17 22:11 10/26/17 22:11 10/26/17 22:11 10/26/17 22:11 Intake and Output: 10/27/17 10/27/17 06:59 18:59 Intake Total 720 Output Total 1500 Balance -780 - Medications Medications: Current Medications Acetaminophen (Tylenol 325mg Tab) 650 mg PO Q6H PRN PRN Reason: Other Last Admin: 10/27/17 04:02 Dose: 650 mg Baclofen (Lioresal) 20 mg PO BID PRN PRN Reason: Pain, moderate (4-7) Last Admin: 10/27/17 04:02 Dose: 20 mg Collagenase (Santyl) 0 gm TOP BID [facility] Last Admin: 10/26/17 12:45 Dose: 1 applic Docusate Sodium (Colace) 100 mg PO BID [facility] Last Admin: 10/26/17 17:37 Dose: Not Given Enoxaparin Sodium (Lovenox) 100 mg SC Q12H [facility] PRN Reason: Protocol Last Admin: 10/25/17 22:38 Dose: Not Given Aztreonam (Azactam 1 Gm) 100 mls @ 100 mls/hr IVPB Q8 [facility] PRN Reason: Protocol Last Admin: 10/27/17 05:37 Dose: 100 mls/hr Morphine Sulfate (Morphine) 2 mg IVP Q4H PRN PRN Reason: Pain, severe (8-10) Ondansetron HCl (Zofran Inj) 4 mg IVP Q4 PRN PRN Reason: Nausea/Vomiting Pantoprazole Sodium (Protonix Ec Tab) 40 mg PO ACB [facility] Last Admin: 10/26/17 08:00 Dose: Not Given Sodium Hypochlorite (Dakins Solution 0.25%) 1 ml TOP DAILY [facility] Last Admin: 10/26/17 12:45 Dose: 1 ml - Labs Labs: 10/26/17 06:55 10/26/17 06:55 PT 13.8 SECONDS 10/27/17 07:20 INR 1.20 10/27/17 07:20 APTT 29.6 Seconds (25.1-36.5) 10/26/17 06:55 Attending/Attestation - Attestation I have personally seen and examined this patient.: Yes I have fully participated in the care of the patient.: Yes I have reviewed all pertinent clinical information, including history, physical exam and plan: Yes Notes (Text): 10/26/17 52 year old male with past medical history of paraplegia, epidural abscess, s/p colostomy, and sacral ulcers who is admitted for infected decubitus sacral ulcer. Bone scan was suggestive of osteomyelitis of coccyx bone. Patient is on iv antibiotics. ID and surgery are following. Plan is for OR debridement today. Patient is on lovenox/coumadin for history of DVT; currently on hold for above procedure today. Miky Hou MD Hospitalist.
[2017-10-26] MEDS: Pantoprazole 40 mg EC Tab PO SCH (08:00)
[2017-10-26] MEDS: Collagenase 250 Units/gm Ointment(30 gm) TOP SCH (12:45)
[2017-10-26] MEDS: Dakin's Topical 0.25%-Half Strength (480 ml) TOP SCH (12:45)
[2017-10-26] MEDS ORDERED: HYDROmorphone 0.5 mg/0.5 ml ISec IVP PRN (13:09)
[2017-10-26] MEDS ORDERED: Lactated Ringer's 1,000 ML IV SCH (13:15)
[2017-10-26] MEDS ORDERED: Bupivacaine 0.5% Inj(30mL) ONE (13:15)
[2017-10-26] MEDS ORDERED: Propofol 10 mg/ml Inj (20 ML) ONE (13:18)
[2017-10-26] MEDS ORDERED: Midazolam 2 MG/2 ML VIAL ONE (13:18)
[2017-10-26] MEDS ORDERED: Oxychlorosene Topical 2 gm Packet TOP ONE (13:55)
[2017-10-26] MEDS ORDERED: Morphine 2 mg/ml ISec IVP PRN (14:20)
[2017-10-26] MEDS ORDERED: HYDROmorphone 0.5 mg/0.5 ml ISec ONE (14:24)
[2017-10-26] MEDS ORDERED: HYDROmorphone 0.5 mg/0.5 ml ISec IVP ONE ×2 (14:25→14:30)
[2017-10-26] MEDS ORDERED: HYDROmorphone 0.5 mg/0.5 ml ISec IVP STA (14:28)
--- NOTE | 2017-10-26 14:37 | PCM.SURG1 ---
Surgeon's Initial Post Op Note - Surgeon's Notes Surgeon: Dr. Askew Group Managing Director: Laura Bruce, PGY4, Stefanie Dubose, PGY1 Type of Anesthesia: General IV Pre-Operative Diagnosis: right ischial ulcer stage 4 possible osteopmyelitis, left gluteus sacral ulcer stage 2, right gluteus sacral ulcer stage 3 Operative Findings: right ischial ulcer Stage IV, left gluteus sacral ulcer stage 2, right gluteus sacral ulcer, possible osteomyelitis in the Right ischial wound Post-Operative Diagnosis: same Operation Performed: debridement of Right ischial ulcer (stage 4), right gluteal ulcer stage 3 Specimen/Specimens Removed: none Estimated Blood Loss: EBL {In ML}: 10 Blood Products Given: N/A Drains Used: No Drains Post-Op Condition: Fair Date of Surgery/Procedure: 10/26/17 Time of Surgery/Procedure: 13:30
--- NOTE | 2017-10-26 15:24 | RAD ---
Date of service: 10/26/2017 PROCEDURE: Radiographs of the Left Shoulder HISTORY: shoulder pain COMPARISON: No prior. FINDINGS: BONES: Normal. No fracture. JOINTS: Moderate degenerative changes are seen in the glenohumeral joint SOFT TISSUES: There is calcification inferior to the coracoid that most likely represents calcific bursitis. OTHER FINDINGS: None. IMPRESSION: No acute findings
--- NOTE | 2017-10-26 18:31 | CP.PCM.PN ---
Subjective - Date & Time of Evaluation Date of Evaluation: 10/26/17 Time of Evaluation: 17:30 - Subjective Subjective: Infectious Disease Follow Up: October 26, 2017 52 yo male with extensive medical history including paraplegia, IVDA, T2 epidural abscess, ileostomy, and chronic sacral decubiti presenting with worsening sacral decubiti ulcerations. He states that he has discharge and malodor at the ulceration sites. The patient is bedbound. Bone scan done. Results showing possible osteomyelitis of the right ischium. For debridement of the sacral decubiti by Dr. Askew... done on Thursday. No new issues at this time. Objective - Vital Signs/Intake and Output Vital Signs (last 24 hours): Temp Pulse Resp BP Pulse Ox 97.4 F L 69 18 149/87 98 10/26/17 14:47 10/26/17 14:47 10/26/17 14:47 10/26/17 14:47 10/26/17 14:47 Intake and Output: 10/26/17 10/26/17 06:59 18:59 Intake Total 620 10 Output Total 1750 Balance -1130 10 - Medications Medications: Current Medications Acetaminophen (Tylenol 325mg Tab) 650 mg PO Q6H PRN PRN Reason: Other Last Admin: 10/26/17 07:36 Dose: 650 mg Baclofen (Lioresal) 20 mg PO BID PRN PRN Reason: Pain, moderate (4-7) Last Admin: 10/26/17 07:36 Dose: 20 mg Collagenase (Santyl) 0 gm TOP BID [facility] Last Admin: 10/26/17 12:45 Dose: 1 applic Docusate Sodium (Colace) 100 mg PO BID [facility] Last Admin: 10/26/17 17:37 Dose: Not Given Enoxaparin Sodium (Lovenox) 100 mg SC Q12H [facility] PRN Reason: Protocol Last Admin: 10/25/17 22:38 Dose: Not Given Gabapentin (Neurontin) 300 mg PO DAILY [facility] PRN Reason: Protocol Stop: 10/26/17 23:59 Last Admin: 10/26/17 09:00 Dose: Not Given Aztreonam (Azactam 1 Gm) 100 mls @ 100 mls/hr IVPB Q8 [facility] PRN Reason: Protocol Last Admin: 10/26/17 13:30 Dose: Not Given Morphine Sulfate (Morphine) 2 mg IVP Q4H PRN PRN Reason: Pain, severe (8-10) Ondansetron HCl (Zofran Inj) 4 mg IVP Q4 PRN PRN Reason: Nausea/Vomiting Pantoprazole Sodium (Protonix Ec Tab) 40 mg PO ACB [facility] Last Admin: 10/26/17 08:00 Dose: Not Given Sodium Hypochlorite (Dakins Solution 0.25%) 1 ml TOP DAILY [facility] Last Admin: 10/26/17 12:45 Dose: 1 ml - Labs Labs: 10/26/17 06:55 10/26/17 06:55 PT 15.5 SECONDS (9.4-12.5) H 10/26/17 06:55 INR 1.34 (0.93-1.08) H 10/26/17 06:55 APTT 29.6 Seconds (25.1-36.5) 10/26/17 06:55 - Constitutional Appears: No Acute Distress, Chronically Ill - Head Exam Head Exam: ATRAUMATIC, NORMOCEPHALIC - Eye Exam Eye Exam: EOMI, PERRL Pupil Exam: NORMAL ACCOMODATION, PERRL - ENT Exam ENT Exam: Mucous Membranes Moist, Normal External Ear Exam, TM's Normal Bilaterally - Neck Exam Neck Exam: Full ROM, Normal Inspection - Respiratory Exam Respiratory Exam: Clear to Ausculation Bilateral, NORMAL BREATHING PATTERN. absent: Rales, Rhonchi, Wheezes - Cardiovascular Exam Cardiovascular Exam: REGULAR RHYTHM, RRR, +S1, +S2 - GI/Abdominal Exam GI & Abdominal Exam: Soft, Normal Bowel Sounds. absent: Distended, Tenderness Additional comments: colostomy bag draining well - Extremities Exam Additional comments: paraplegic, contracted extremities all four limbs. Cachetic. - Back Exam Back Exam: NORMAL INSPECTION Additional comments: pt has a stage IV sacral ulcer over his right ischium. pt has a stage I ulver on his left and right buttocks - Neurological Exam Neurological Exam: Alert, Awake, CN II-XII Intact, Oriented x3 - Psychiatric Exam Psychiatric exam: Normal Affect, Normal Mood - Skin Skin Exam: Normal Color, Warm Assessment and Plan - Assessment and Plan (Free Text) Assessment: 52 yo male with extensive sacral decubiti stage IV in additional to other medical issues. Patient with known rash with PCN. Unclear why Zosyn was given in PCN allergy. 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 For now would start with Aztreonam and obtain wound cultures (hopefully done before any antibiotics were started.). Supportive and wound care. Surgery evaluation for potential debridement. Can extend coverage if MRSA is found. There may need to be a desensitization to carbapenems if resistant gram negatives are found in cultures. Gram negative rods in two cultures. Results of the bone scan show questionable osteomyelitis findings of the right ischium. Sacral wound with Enterobacter. May need 6 weeks of IV antibiotics for questionable osteomyelitis. OR debridement on Thursday10/26/2017. Thank you for allowing me to participate in the care of the patient, we will follow with you.
[2017-10-27] MEDS: Aztreonam 1 Gm in NS 100mL 100 ML IVPB SCH ×3 (05:37→21:27)
[2017-10-27 07:57] LABS: INR 1.2
--- NOTE | 2017-10-27 08:33 | CP.PCM.PN ---
Subjective - Date & Time of Evaluation Date of Evaluation: 10/27/17 Time of Evaluation: 07:45 - Subjective Subjective: Surgery Progress Note for Dr. Askew Pt seen and examined at bedside. States that his shoulder pain has resolved. No acute events reported overnight. Patient is s/p debridement of R ischial ulcer ( stage 4) and R gluteal ulcer (stage 2) POD#1. Pt denies fever, chills, chest pain, shortness of breath, n/v/d, urinary complaints or other symptoms. Objective - Vital Signs/Intake and Output Vital Signs (last 24 hours): Temp Pulse Resp BP Pulse Ox 98.3 F 66 20 102/60 98 10/27/17 08:08 10/27/17 08:08 10/27/17 08:08 10/27/17 08:08 10/27/17 08:08 Intake and Output: 10/27/17 10/27/17 06:59 18:59 Intake Total 820 Output Total 1500 Balance -680 - Medications Medications: Current Medications Acetaminophen (Tylenol 325mg Tab) 650 mg PO Q6H PRN PRN Reason: Other Last Admin: 10/27/17 04:02 Dose: 650 mg Baclofen (Lioresal) 20 mg PO BID PRN PRN Reason: Pain, moderate (4-7) Last Admin: 10/27/17 04:02 Dose: 20 mg Collagenase (Santyl) 0 gm TOP BID [facility] Last Admin: 10/26/17 12:45 Dose: 1 applic Docusate Sodium (Colace) 100 mg PO BID [facility] Last Admin: 10/26/17 17:37 Dose: Not Given Enoxaparin Sodium (Lovenox) 100 mg SC Q12H [facility] PRN Reason: Protocol Last Admin: 10/25/17 22:38 Dose: Not Given Aztreonam (Azactam 1 Gm) 100 mls @ 100 mls/hr IVPB Q8 [facility] PRN Reason: Protocol Last Admin: 10/27/17 05:37 Dose: 100 mls/hr Morphine Sulfate (Morphine) 2 mg IVP Q4H PRN PRN Reason: Pain, severe (8-10) Ondansetron HCl (Zofran Inj) 4 mg IVP Q4 PRN PRN Reason: Nausea/Vomiting Pantoprazole Sodium (Protonix Ec Tab) 40 mg PO ACB [facility] Last Admin: 10/26/17 08:00 Dose: Not Given Sodium Hypochlorite (Dakins Solution 0.25%) 1 ml TOP DAILY [facility] Last Admin: 10/26/17 12:45 Dose: 1 ml - Labs Labs: 10/26/17 06:55 10/26/17 06:55 PT 13.8 SECONDS 10/27/17 07:20 INR 1.20 10/27/17 07:20 APTT 29.7 Seconds 10/27/17 07:20 - Constitutional Appears: Non-toxic, No Acute Distress, Chronically Ill - Head Exam Head Exam: ATRAUMATIC, NORMAL INSPECTION - Eye Exam Eye Exam: EOMI, Normal appearance, PERRL - ENT Exam ENT Exam: Mucous Membranes Moist - Respiratory Exam Respiratory Exam: Clear to Ausculation Bilateral, NORMAL BREATHING PATTERN - Cardiovascular Exam Cardiovascular Exam: REGULAR RHYTHM, +S1, +S2 - GI/Abdominal Exam GI & Abdominal Exam: Soft, Normal Bowel Sounds Additional comments: LLQ colostomy functioning properly with stool in bag - Extremities Exam Extremities Exam: Normal Capillary Refill, Normal Inspection - Back Exam Additional comments: Stage 2 sacral ulcer and stage 4 ischial ulcer, no abnormal drainage noted - Skin Skin Exam: Dry, Warm Assessment and Plan - Assessment and Plan (Free Text) Assessment: 52 y o male with stage 4 ischial ulcer with possible osteomyelitis, and Stage 2 sacral ulcer. S/p debridement of R ischial ulcer (stage 4), R gluteal ulcer ( stage 2) POD#1. Plan: -Cont. local wound care with santyl to sacrum and dakins packings to ischial ulcer -C/w air mattress and off loading -IV antibiotics (Aztreonam) as per ID, stating patient may need 6 weeks of antibiotics for suspected osteomyelitis -Will consider Wound Vac if pt is to stay on IV antibiotics for extended period of time -F/u INR; may resume anticoagulation at this time -Shoulder XR 10/26: no acute findings; pt states shoulder pain has resolved -Further recommendations per Dr. Azar Aguilar, DO PGY-1
[2017-10-27 09:28] LABS: BASO # 0.01 K/mm3 (0.0-2.0); BASO % 0.1 % (0.0-3.0); EOS # 0.1 (0.0-0.7); GRAN # 4.59 (1.4-6.5); GRAN % 65.9 % (50.0-68.0); HEMOGLOBIN 11.8 g/dL (14.0-18.0); LYMPH # 1.8 (1.2-3.4); LYMPH % 25.7 % (22.0-35.0); MEAN CELL VOLUME 80.6 fl (80.0-105.0); MEAN CORPUSCULAR HEMOGLOBIN 25.8 pg (25.0-35.0); MEAN PLATELET VOLUME 11.1 fl (7.0-11.0); MONO # 0.5 (0.1-0.6); MONO % 7.3 % (1.0-6.0); RBC 4.58 10^6/uL (3.5-6.1); RED CELL DISTRIBUTION WIDTH 16.3 % (11.5-14.5)
[2017-10-27 09:36] LABS: BLOOD UREA NITROGEN 17 mg/dL (7-21); CALCIUM 9.6 mg/dL (8.4-10.5); GFR AFRICAN-AMERICAN > 60; GFR NON-AFRICAN AMERICAN > 60
[2017-10-27] MEDS: Dakin's Topical 0.25%-Half Strength (480 ml) TOP SCH (09:50)
[2017-10-27] MEDS: Collagenase 250 Units/gm Ointment(30 gm) TOP SCH ×2 (09:50→17:23)
[2017-10-27] MEDS: Enoxaparin 100 mg Syringe SC SCH ×2 (09:50→21:26)
[2017-10-27] MEDS: Pantoprazole 40 mg EC Tab PO SCH (09:50)
--- NOTE | 2017-10-27 15:03 | CP.PCM.PN ---
<Hank Tee - Last Filed: 10/27/17 20:06> Subjective - Date & Time of Evaluation Date of Evaluation: 10/27/17 Time of Evaluation: 15:00 - Subjective Subjective: Hank Tee DO PGY1 Internal Medicine Division Chair - Hospital Progress note Pt. seen this AM at bedside; no acute events reported overnight; patient is POD# 1 from sacral ulcer debridement. Pt. denies any issues postop; afebrile, no SOB, ostomy is emptying appropraitely , patient urinating well, no CP, abd pain. 12 system ROS otherwise unremarkable. Objective - Vital Signs/Intake and Output Vital Signs (last 24 hours): Temp Pulse Resp BP Pulse Ox 98.3 F 66 20 102/60 98 10/27/17 08:08 10/27/17 08:08 10/27/17 08:08 10/27/17 08:08 10/27/17 08:08 Intake and Output: 10/27/17 10/27/17 06:59 18:59 Intake Total 820 Output Total 1500 Balance -680 - Medications Medications: Current Medications Acetaminophen (Tylenol 325mg Tab) 650 mg PO Q6H PRN PRN Reason: Other Last Admin: 10/27/17 04:02 Dose: 650 mg Baclofen (Lioresal) 20 mg PO BID PRN PRN Reason: Pain, moderate (4-7) Last Admin: 10/27/17 04:02 Dose: 20 mg Collagenase (Santyl) 0 gm TOP BID [facility] Last Admin: 10/27/17 09:50 Dose: Not Given Docusate Sodium (Colace) 100 mg PO BID [facility] Last Admin: 10/27/17 09:49 Dose: Not Given Enoxaparin Sodium (Lovenox) 100 mg SC Q12H [facility] PRN Reason: Protocol Last Admin: 10/27/17 09:50 Dose: 100 mg Aztreonam (Azactam 1 Gm) 100 mls @ 100 mls/hr IVPB Q8 [facility] PRN Reason: Protocol Last Admin: 10/27/17 14:52 Dose: 100 mls/hr Morphine Sulfate (Morphine) 2 mg IVP Q4H PRN PRN Reason: Pain, severe (8-10) Ondansetron HCl (Zofran Inj) 4 mg IVP Q4 PRN PRN Reason: Nausea/Vomiting Pantoprazole Sodium (Protonix Ec Tab) 40 mg PO ACB [facility] Last Admin: 10/27/17 09:50 Dose: 40 mg Sodium Hypochlorite (Dakins Solution 0.25%) 1 ml TOP DAILY [facility] Last Admin: 10/27/17 09:50 Dose: Not Given Warfarin Sodium (Coumadin) 5 mg PO 1800 [facility] PRN Reason: Protocol Warfarin Sodium (Coumadin) 2 mg PO 1800 [facility] PRN Reason: Protocol - Labs Labs: 10/27/17 09:00 10/27/17 09:00 PT 13.8 SECONDS 10/27/17 07:20 INR 1.20 10/27/17 07:20 APTT 29.7 Seconds 10/27/17 07:20 - Head Exam Head Exam: ATRAUMATIC, NORMAL INSPECTION, NORMOCEPHALIC - Eye Exam Eye Exam: EOMI, Normal appearance - ENT Exam ENT Exam: Mucous Membranes Moist, Normal Exam - Respiratory Exam Respiratory Exam: Clear to Ausculation Bilateral, NORMAL BREATHING PATTERN. absent: Rhonchi, Wheezes - Cardiovascular Exam Cardiovascular Exam: REGULAR RHYTHM, +S1, +S2 - GI/Abdominal Exam GI & Abdominal Exam: Soft, nontender, bowel sounds present; colostomy bag present w/ no issue; draining well. - Extremities Exam Extremities Exam: absent: Normal Inspection - Back Exam Back Exam: absent: NORMAL INSPECTION Additional comments: non-stageable sacral ulcer & stage 4 ischial ulcer; dressing CDI - Neurological Exam Neurological Exam: Alert, Awake, Oriented x3 - Psychiatric Exam Psychiatric exam: Normal Affect, Normal Mood - Skin Skin Exam: Normal Color, Warm Assessment and Plan - Assessment and Plan (Free Text) Assessment: 52 year old male pertinent history of chronic sacral ulcers, chronic UTI, paraplegia, and previous DVT presented with worsening bed sores. On admission, patient was afebrile with stable vitals, and no other SIRS criteria. Wound culture is now growing enterobacter, pansensitive to cipro, bactrim, ertapenem, gentamicin, merrem, and zosyn; urine culture growing resistant proteus in chronic indwelling catheter. Patient also was found to have subtherapeutic INR on Coumadin. Procal and blood cultures negative. 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 s/p Wound debridement POD#1 - Wound care consulted, recs appreciated - Patient underwent debridement yesterday - Resumed Lovenox 100 BID - Resumed Home Warfarin 7mg QPM - ID consulted, recs appreciated - Tylenol prn for pain - Zofran prn for nausea - C/w aztreonam IVPB (day #8) as per ID; total therapy for 5 weeks - C/w baclofen - C/w air mattress, turn pt q 2 h - Further wound management recs as per wound care, surgery, and ID Subtherapeutic INR - Resolved - Patient needs to discontinue Warfarin for procedure on Thursday, is being kept on therpeutic dose of Lovenox 100 mg bid subQ; lovenox dose was held this AM; - Resumed Warfarin; follow up INR - DC Lovenox once INR is therapeutic - Change dose to 7.5 for discharge Ileostomy, chronic - Hx since Jan 2017 as per patient - Surgery consulted, f/u recs Hx paraplegia/immobility - PT following Hx IVDA - Urine drug screen negative GI/DVT ppx: Protonix/Lovenox (Warfarin on hold) Disposition plan: Patient is post debridement today; will continue to monitor how patient tolerates post op. [employer] involvement needed so patient can get better wound care at home. Due to lack of proper wound care patient will continue to have infections. <Miky Hou - Last Filed: 10/28/17 07:29> Objective - Vital Signs/Intake and Output Vital Signs (last 24 hours): Temp Pulse Resp BP Pulse Ox 98.1 F 78 20 110/64 97 10/27/17 22:52 10/27/17 22:52 10/27/17 22:52 10/27/17 22:52 10/27/17 22:52 Intake and Output: 10/28/17 10/28/17 06:59 18:59 Intake Total 1000 Output Total 1000 Balance 0 - Medications Medications: Current Medications Acetaminophen (Tylenol 325mg Tab) 650 mg PO Q6H PRN PRN Reason: Other Last Admin: 10/28/17 03:36 Dose: 650 mg Baclofen (Lioresal) 20 mg PO BID PRN PRN Reason: Pain, moderate (4-7) Last Admin: 10/28/17 03:36 Dose: 20 mg Collagenase (Santyl) 0 gm TOP BID [facility] Last Admin: 10/27/17 17:23 Dose: Not Given Docusate Sodium (Colace) 100 mg PO BID [facility] Last Admin: 10/27/17 17:22 Dose: Not Given Enoxaparin Sodium (Lovenox) 100 mg SC Q12H [facility] PRN Reason: Protocol Last Admin: 10/27/17 21:26 Dose: 100 mg Aztreonam (Azactam 1 Gm) 100 mls @ 100 mls/hr IVPB Q8 [facility] PRN Reason: Protocol Last Admin: 10/28/17 05:29 Dose: 100 mls/hr Gentamicin Sulfate 175 mg/ (Sodium Chloride) 104.375 mls @ 100 mls/hr IVPB Q8 [facility] Stop: 10/30/17 22:00 Last Admin: 10/28/17 05:30 Dose: 100 mls/hr Morphine Sulfate (Morphine) 2 mg IVP Q4H PRN PRN Reason: Pain, severe (8-10) Last Admin: 10/27/17 19:38 Dose: 2 mg Ondansetron HCl (Zofran Inj) 4 mg IVP Q4 PRN PRN Reason: Nausea/Vomiting Pantoprazole Sodium (Protonix Ec Tab) 40 mg PO ACB [facility] Last Admin: 10/27/17 09:50 Dose: 40 mg Sodium Hypochlorite (Dakins Solution 0.25%) 1 ml TOP DAILY [facility] Last Admin: 10/27/17 09:50 Dose: Not Given Warfarin Sodium (Coumadin) 5 mg PO 1800 [facility] PRN Reason: Protocol Last Admin: 10/27/17 17:23 Dose: 5 mg Warfarin Sodium (Coumadin) 2 mg PO 1800 [facility] PRN Reason: Protocol Last Admin: 10/27/17 17:23 Dose: 2 mg - Labs Labs: 10/27/17 09:00 10/27/17 09:00 PT 13.8 SECONDS 10/27/17 07:20 INR 1.20 10/27/17 07:20 APTT 29.7 Seconds 10/27/17 07:20 Attending/Attestation - Attestation I have personally seen and examined this patient.: Yes I have fully participated in the care of the patient.: Yes I have reviewed all pertinent clinical information, including history, physical exam and plan: Yes Notes (Text): 10/27/17 52 year old male with past medical history of paraplegia, epidural abscess, s/p colostomy, and sacral ulcers who is admitted for infected decubitus sacral ulcer. Bone scan was suggestive of osteomyelitis of coccyx bone. Patient is s/p OR debridement POD #1. Wound culture is growing enterobacter aerogenes. Ucx is growing proteus mirabilis. Continue with iv antibiotics as per ID and wound care as per surgery. Patient is on lovenox/coumadin for history of DVT. Miky Hou MD Hospitalist.
--- NOTE | 2017-10-27 17:27 | CP.PCM.PN ---
Subjective - Date & Time of Evaluation Date of Evaluation: 10/27/17 Time of Evaluation: 17:15 - Subjective Subjective: Infectious Disease Follow Up: October 27, 2017 52 yo male with extensive medical history including paraplegia, IVDA, T2 epidural abscess, ileostomy, and chronic sacral decubiti presenting with worsening sacral decubiti ulcerations. He states that he has discharge and malodor at the ulceration sites. The patient is bedbound. Bone scan done. Results showing possible osteomyelitis of the right ischium. For debridement of the sacral decubiti by Dr. Askew... done on Thursday. ESBL + Proteus in urine cultures. No renal disease. No new issues at this time. Objective - Vital Signs/Intake and Output Vital Signs (last 24 hours): Temp Pulse Resp BP Pulse Ox 98.6 F 70 20 129/74 98 10/27/17 15:34 10/27/17 15:34 10/27/17 15:34 10/27/17 15:34 10/27/17 15:34 Intake and Output: 10/27/17 10/27/17 06:59 18:59 Intake Total 820 Output Total 1500 Balance -680 - Medications Medications: Current Medications Acetaminophen (Tylenol 325mg Tab) 650 mg PO Q6H PRN PRN Reason: Other Last Admin: 10/27/17 14:56 Dose: 650 mg Baclofen (Lioresal) 20 mg PO BID PRN PRN Reason: Pain, moderate (4-7) Last Admin: 10/27/17 04:02 Dose: 20 mg Collagenase (Santyl) 0 gm TOP BID [facility] Last Admin: 10/27/17 09:50 Dose: Not Given Docusate Sodium (Colace) 100 mg PO BID [facility] Last Admin: 10/27/17 09:49 Dose: Not Given Enoxaparin Sodium (Lovenox) 100 mg SC Q12H [facility] PRN Reason: Protocol Last Admin: 10/27/17 09:50 Dose: 100 mg Aztreonam (Azactam 1 Gm) 100 mls @ 100 mls/hr IVPB Q8 [facility] PRN Reason: Protocol Last Admin: 10/27/17 14:52 Dose: 100 mls/hr Morphine Sulfate (Morphine) 2 mg IVP Q4H PRN PRN Reason: Pain, severe (8-10) Ondansetron HCl (Zofran Inj) 4 mg IVP Q4 PRN PRN Reason: Nausea/Vomiting Pantoprazole Sodium (Protonix Ec Tab) 40 mg PO ACB [facility] Last Admin: 10/27/17 09:50 Dose: 40 mg Sodium Hypochlorite (Dakins Solution 0.25%) 1 ml TOP DAILY [facility] Last Admin: 10/27/17 09:50 Dose: Not Given Warfarin Sodium (Coumadin) 5 mg PO 1800 [facility] PRN Reason: Protocol Warfarin Sodium (Coumadin) 2 mg PO 1800 [facility] PRN Reason: Protocol - Labs Labs: 10/27/17 09:00 10/27/17 09:00 PT 13.8 SECONDS 10/27/17 07:20 INR 1.20 10/27/17 07:20 APTT 29.7 Seconds 10/27/17 07:20 - Constitutional Appears: No Acute Distress, Chronically Ill - Head Exam Head Exam: ATRAUMATIC, NORMOCEPHALIC - Eye Exam Eye Exam: EOMI, PERRL Pupil Exam: NORMAL ACCOMODATION, PERRL - ENT Exam ENT Exam: Mucous Membranes Moist, Normal External Ear Exam, TM's Normal Bilaterally - Neck Exam Neck Exam: Full ROM, Normal Inspection - Respiratory Exam Respiratory Exam: Clear to Ausculation Bilateral, NORMAL BREATHING PATTERN. absent: Rales, Rhonchi, Wheezes - Cardiovascular Exam Cardiovascular Exam: REGULAR RHYTHM, RRR, +S1, +S2 - GI/Abdominal Exam GI & Abdominal Exam: Soft, Normal Bowel Sounds. absent: Distended, Tenderness Additional comments: colostomy bag draining well - Extremities Exam Additional comments: paraplegic, contracted extremities all four limbs. Cachetic. - Neurological Exam Neurological Exam: Alert, Awake, Oriented x3 - Psychiatric Exam Psychiatric exam: Normal Affect, Normal Mood - Skin Additional comments: pt has a stage IV sacral ulcer over his right ischium. pt has a stage I ulver on his left and right buttocks Assessment and Plan - Assessment and Plan (Free Text) Assessment: 52 yo male with extensive sacral decubiti stage IV in additional to other medical issues. Patient with known rash with PCN. Unclear why Zosyn was given in PCN allergy. 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 For now would start with Aztreonam and obtain wound cultures (hopefully done before any antibiotics were started.). Supportive and wound care. Surgery evaluation for potential debridement. Can extend coverage if MRSA is found. There may need to be a desensitization to carbapenems if resistant gram negatives are found in cultures. Gram negative rods in two cultures. Results of the bone scan show questionable osteomyelitis findings of the right ischium. Sacral wound with Enterobacter. May need 4 to 6 weeks of IV antibiotics for questionable osteomyelitis. OR debridement on Thursday10/26/2017. ESBL+ Proteus in urine cultures. Gentamicin IV started for treatment of 3 days. Enterobacter in wound cultures. Thank you for allowing me to participate in the care of the patient, we will follow with you.
[2017-10-27] MEDS ORDERED: Gentamicin 80 mg/2mL Inj. IVPB SCH (17:30)
[2017-10-27] MEDS ORDERED: SODIUM CHLORIDE 0.9% IVPB SCH (17:45)
[2017-10-27] MEDS ORDERED: GENTAMICIN IVPB SCH (17:45)
[2017-10-27] MEDS: GENTAMICIN IVPB SCH (23:18)
[2017-10-27] MEDS: SODIUM CHLORIDE 0.9% IVPB SCH (23:18)
[2017-10-28] MEDS: Aztreonam 1 Gm in NS 100mL 100 ML IVPB SCH ×3 (05:29→21:29)
[2017-10-28] MEDS: GENTAMICIN IVPB SCH ×3 (05:30→21:31)
[2017-10-28] MEDS: SODIUM CHLORIDE 0.9% IVPB SCH ×3 (05:30→21:31)
[2017-10-28 08:27] LABS: INR 1.14; PROTHROMBIN TIME 13.1 SECONDS (9.4-12.5)
[2017-10-28] MEDS: Pantoprazole 40 mg EC Tab PO SCH (08:30)
[2017-10-28] MEDS: Enoxaparin 100 mg Syringe SC SCH ×2 (08:30→21:30)
[2017-10-28] MEDS: Collagenase 250 Units/gm Ointment(30 gm) TOP SCH (10:25)
[2017-10-28] MEDS: Dakin's Topical 0.25%-Half Strength (480 ml) TOP SCH (10:25)
--- NOTE | 2017-10-28 11:02 | CP.PCM.PN ---
Subjective - Date & Time of Evaluation Date of Evaluation: 10/28/17 Time of Evaluation: 09:20 - Subjective Subjective: Surgery Progress Note for Dr. Askew Pt seen and examined at bedside. Pt denies fever, chills, chest pain, shortness of breath, n/v/d, urinary complaints or other symptoms. No acute events reported overnight. Objective - Vital Signs/Intake and Output Vital Signs (last 24 hours): Temp Pulse Resp BP Pulse Ox 98.2 F 60 18 127/82 96 10/28/17 07:40 10/28/17 07:40 10/28/17 07:40 10/28/17 07:40 10/28/17 07:40 Intake and Output: 10/28/17 10/28/17 06:59 18:59 Intake Total 1000 Output Total 1000 Balance 0 - Medications Medications: Current Medications Acetaminophen (Tylenol 325mg Tab) 650 mg PO Q6H PRN PRN Reason: Other Last Admin: 10/28/17 10:21 Dose: 650 mg Baclofen (Lioresal) 20 mg PO BID PRN PRN Reason: Pain, moderate (4-7) Last Admin: 10/28/17 03:36 Dose: 20 mg Collagenase (Santyl) 0 gm TOP BID [facility] Last Admin: 10/28/17 10:25 Dose: Not Given Docusate Sodium (Colace) 100 mg PO BID [facility] Last Admin: 10/28/17 09:24 Dose: 100 mg Enoxaparin Sodium (Lovenox) 100 mg SC Q12H [facility] PRN Reason: Protocol Last Admin: 10/28/17 08:30 Dose: 100 mg Aztreonam (Azactam 1 Gm) 100 mls @ 100 mls/hr IVPB Q8 [facility] PRN Reason: Protocol Last Admin: 10/28/17 05:29 Dose: 100 mls/hr Gentamicin Sulfate 175 mg/ (Sodium Chloride) 104.375 mls @ 100 mls/hr IVPB Q8 [facility] Stop: 10/30/17 22:00 Last Admin: 10/28/17 05:30 Dose: 100 mls/hr Morphine Sulfate (Morphine) 2 mg IVP Q4H PRN PRN Reason: Pain, severe (8-10) Last Admin: 10/27/17 19:38 Dose: 2 mg Ondansetron HCl (Zofran Inj) 4 mg IVP Q4 PRN PRN Reason: Nausea/Vomiting Pantoprazole Sodium (Protonix Ec Tab) 40 mg PO ACB [facility] Last Admin: 10/28/17 08:30 Dose: 40 mg Sodium Hypochlorite (Dakins Solution 0.25%) 1 ml TOP DAILY [facility] Last Admin: 10/28/17 10:25 Dose: Not Given Warfarin Sodium (Coumadin) 5 mg PO 1800 [facility] PRN Reason: Protocol Last Admin: 10/27/17 17:23 Dose: 5 mg Warfarin Sodium (Coumadin) 2 mg PO 1800 [facility] PRN Reason: Protocol Last Admin: 10/27/17 17:23 Dose: 2 mg - Labs Labs: 10/27/17 09:00 10/27/17 09:00 PT 13.1 SECONDS (9.4-12.5) H 10/28/17 08:00 INR 1.14 10/28/17 08:00 APTT 29.7 Seconds 10/27/17 07:20 - Constitutional Appears: Non-toxic, No Acute Distress - Head Exam Head Exam: ATRAUMATIC, NORMAL INSPECTION - Eye Exam Eye Exam: Normal appearance, PERRL - ENT Exam ENT Exam: Mucous Membranes Moist - Respiratory Exam Respiratory Exam: Clear to Ausculation Bilateral, NORMAL BREATHING PATTERN - Cardiovascular Exam Cardiovascular Exam: REGULAR RHYTHM, +S1, +S2 - GI/Abdominal Exam GI & Abdominal Exam: Soft, Normal Bowel Sounds Additional comments: LLQ colostomy functioning properly with stool in bag - Extremities Exam Extremities Exam: Normal Capillary Refill, Normal Inspection - Back Exam Additional comments: Stage 2 sacral ulcer and Stage 4 ischial ulcer, no abnormal drainage noted - Neurological Exam Neurological Exam: Alert, Awake, Oriented x3 - Skin Skin Exam: Dry, Warm Assessment and Plan - Assessment and Plan (Free Text) Assessment: 52 y o male with stage 4 ischial ulcer with possible osteomyelitis, and Stage 2 sacral ulcer. S/p debridement of R ischial ulcer (stage 4), R gluteal ulcer ( stage 2) POD#2. Plan: -Cont. local wound care with santyl to sacrum and dakins packings to ischial ulcer -C/w air mattress and off loading -IV antibiotics (Aztreonam) as per ID, stating patient may need 4-6 weeks of antibiotics for suspected osteomyelitis -Wound Vac to be placed likely tomorrow -F/u INR; may resume anticoagulation at this time -Further recommendations per Dr. Azar Aguilar, DO PGY-1
[2017-10-28 13:55] LABS: PROTHROMBIN TIME 13.8 SECONDS (9.4-12.5)
[2017-10-28 13:56] LABS: PARTIAL THROMBOPLASTIN TIME 29.7 Seconds (25.1-36.5)
--- NOTE | 2017-10-28 15:53 | CP.PCM.PN ---
Subjective - Date & Time of Evaluation Date of Evaluation: 10/28/17 Time of Evaluation: 15:30 - Subjective Subjective: Infectious Disease Follow Up: October 28, 2017 52 yo male with extensive medical history including paraplegia, IVDA, T2 epidural abscess, ileostomy, and chronic sacral decubiti presenting with worsening sacral decubiti ulcerations. He states that he has discharge and malodor at the ulceration sites. The patient is bedbound. Bone scan done. Results showing possible osteomyelitis of the right ischium. For debridement of the sacral decubiti by Dr. Askew... done on Thursday. ESBL + Proteus in urine cultures. No renal disease. No new issues at this time. PICC placed yesterday. Objective - Vital Signs/Intake and Output Vital Signs (last 24 hours): Temp Pulse Resp BP Pulse Ox 98 F 58 L 18 115/82 100 10/28/17 14:24 10/28/17 14:24 10/28/17 14:24 10/28/17 14:24 10/28/17 14:24 Intake and Output: 10/28/17 10/28/17 06:59 18:59 Intake Total 1000 Output Total 1000 Balance 0 - Medications Medications: Current Medications Acetaminophen (Tylenol 325mg Tab) 650 mg PO Q6H PRN PRN Reason: Other Last Admin: 10/28/17 10:21 Dose: 650 mg Baclofen (Lioresal) 20 mg PO BID PRN PRN Reason: Pain, moderate (4-7) Last Admin: 10/28/17 03:36 Dose: 20 mg Collagenase (Santyl) 0 gm TOP BID [facility] Last Admin: 10/28/17 10:25 Dose: Not Given Docusate Sodium (Colace) 100 mg PO BID [facility] Last Admin: 10/28/17 09:24 Dose: 100 mg Enoxaparin Sodium (Lovenox) 100 mg SC Q12H [facility] PRN Reason: Protocol Last Admin: 10/28/17 08:30 Dose: 100 mg Aztreonam (Azactam 1 Gm) 100 mls @ 100 mls/hr IVPB Q8 [facility] PRN Reason: Protocol Last Admin: 10/28/17 15:27 Dose: 100 mls/hr Gentamicin Sulfate 175 mg/ (Sodium Chloride) 104.375 mls @ 100 mls/hr IVPB Q8 [facility] Stop: 10/30/17 22:00 Last Admin: 10/28/17 15:27 Dose: 100 mls/hr Morphine Sulfate (Morphine) 2 mg IVP Q4H PRN PRN Reason: Pain, severe (8-10) Last Admin: 10/27/17 19:38 Dose: 2 mg Ondansetron HCl (Zofran Inj) 4 mg IVP Q4 PRN PRN Reason: Nausea/Vomiting Pantoprazole Sodium (Protonix Ec Tab) 40 mg PO ACB [facility] Last Admin: 10/28/17 08:30 Dose: 40 mg Sodium Hypochlorite (Dakins Solution 0.25%) 1 ml TOP DAILY [facility] Last Admin: 10/28/17 10:25 Dose: Not Given Warfarin Sodium (Coumadin) 5 mg PO 1800 [facility] PRN Reason: Protocol Last Admin: 10/27/17 17:23 Dose: 5 mg Warfarin Sodium (Coumadin) 2 mg PO 1800 [facility] PRN Reason: Protocol Last Admin: 10/27/17 17:23 Dose: 2 mg - Labs Labs: 10/27/17 09:00 10/27/17 09:00 PT 13.1 SECONDS (9.4-12.5) H 10/28/17 08:00 INR 1.14 10/28/17 08:00 APTT 29.7 Seconds (25.1-36.5) 10/27/17 07:20 - Constitutional Appears: No Acute Distress, Chronically Ill - Head Exam Head Exam: ATRAUMATIC, NORMOCEPHALIC - Eye Exam Eye Exam: EOMI, PERRL Pupil Exam: NORMAL ACCOMODATION, PERRL - ENT Exam ENT Exam: Mucous Membranes Moist, Normal External Ear Exam, TM's Normal Bilaterally - Neck Exam Neck Exam: Full ROM, Normal Inspection - Respiratory Exam Respiratory Exam: Clear to Ausculation Bilateral, NORMAL BREATHING PATTERN. absent: Rales, Rhonchi, Wheezes - Cardiovascular Exam Cardiovascular Exam: REGULAR RHYTHM, RRR, +S1, +S2 - GI/Abdominal Exam GI & Abdominal Exam: Soft, Normal Bowel Sounds. absent: Distended, Tenderness Additional comments: colostomy bag draining well - Extremities Exam Additional comments: paraplegic, contracted extremities all four limbs. Cachetic. - Neurological Exam Neurological Exam: Alert, Awake, CN II-XII Intact, Oriented x3 - Psychiatric Exam Psychiatric exam: Normal Affect, Normal Mood - Skin Additional comments: pt has a stage IV sacral ulcer over his right ischium s/p debridement. pt has a stage I ulver on his left and right buttocks Assessment and Plan - Assessment and Plan (Free Text) Assessment: 52 yo male with extensive sacral decubiti stage IV in additional to other medical issues. Patient with known rash with PCN. Unclear why Zosyn was given in PCN allergy. Possible kanadce syndrome with IV Vancomycin today. For now would start with Aztreonam and obtain wound cultures (hopefully done before any antibiotics were started.). Supportive and wound care. Surgery evaluation for potential debridement. Can extend coverage if MRSA is found. There may need to be a desensitization to carbapenems if resistant gram negatives are found in cultures. Gram negative rods in two cultures. Results of the bone scan show questionable osteomyelitis findings of the right ischium. Sacral wound with Enterobacter. May need 4 to 6 weeks of IV antibiotics for questionable osteomyelitis. OR debridement on Thursday10/26/2017. ESBL+ Proteus in urine cultures. Gentamicin IV started for treatment of 3 days. Enterobacter in wound cultures. Currently on Aztreonam for antibiotic coverage with the short course of Gentamicin (Day 1) Thank you for allowing me to participate in the care of the patient, we will follow with you.
--- NOTE | 2017-10-28 18:47 | CP.PCM.PN ---
<Hank Tee - Last Filed: 10/28/17 18:44> Subjective - Date & Time of Evaluation Date of Evaluation: 10/28/17 Time of Evaluation: 18:44 - Subjective Subjective: Hank Tee DO PGY1 Internal Medicine Janitor Supervisor - Hospital Progress Note Patient seen and evaluated this AM at bedside; is POD#2 from wound debridement. No issues overnight; patient received PICC line last night. Reports some tenderness at picc site however states it is improving. States no fevers overnight, no SOB/ cough, Moving bowels well and emptying colostomy appropriately. 12 system ROS otherwise unremarkable. Objective - Vital Signs/Intake and Output Vital Signs (last 24 hours): Temp Pulse Resp BP Pulse Ox 98 F 58 L 18 115/82 100 10/28/17 14:24 10/28/17 14:24 10/28/17 14:24 10/28/17 14:24 10/28/17 14:24 Intake and Output: 10/28/17 10/28/17 06:59 18:59 Intake Total 1000 Output Total 1000 Balance 0 - Medications Medications: Current Medications Acetaminophen (Tylenol 325mg Tab) 650 mg PO Q6H PRN PRN Reason: Other Last Admin: 10/28/17 18:17 Dose: 650 mg Baclofen (Lioresal) 20 mg PO BID PRN PRN Reason: Pain, moderate (4-7) Last Admin: 10/28/17 03:36 Dose: 20 mg Docusate Sodium (Colace) 100 mg PO BID [facility] Last Admin: 10/28/17 18:18 Dose: 100 mg Enoxaparin Sodium (Lovenox) 100 mg SC Q12H [facility] PRN Reason: Protocol Last Admin: 10/28/17 08:30 Dose: 100 mg Aztreonam (Azactam 1 Gm) 100 mls @ 100 mls/hr IVPB Q8 [facility] PRN Reason: Protocol Last Admin: 10/28/17 15:27 Dose: 100 mls/hr Gentamicin Sulfate 175 mg/ (Sodium Chloride) 104.375 mls @ 100 mls/hr IVPB Q8 [facility] Stop: 10/30/17 22:00 Last Admin: 10/28/17 15:27 Dose: 100 mls/hr Morphine Sulfate (Morphine) 2 mg IVP Q4H PRN PRN Reason: Pain, severe (8-10) Last Admin: 10/27/17 19:38 Dose: 2 mg Ondansetron HCl (Zofran Inj) 4 mg IVP Q4 PRN PRN Reason: Nausea/Vomiting Pantoprazole Sodium (Protonix Ec Tab) 40 mg PO ACB [facility] Last Admin: 10/28/17 08:30 Dose: 40 mg Silver Sulfadiazine (Silvadene 1% 25 Gm) 0 gm TP DAILY [facility] Sodium Hypochlorite (Dakins Solution 0.25%) 1 ml TOP DAILY [facility] Last Admin: 10/28/17 10:25 Dose: Not Given Warfarin Sodium (Coumadin) 5 mg PO 1800 [facility] PRN Reason: Protocol Last Admin: 10/28/17 18:18 Dose: 5 mg Warfarin Sodium (Coumadin) 2 mg PO 1800 [facility] PRN Reason: Protocol Last Admin: 10/28/17 18:18 Dose: 2 mg - Labs Labs: 10/27/17 09:00 10/27/17 09:00 PT 13.1 SECONDS (9.4-12.5) H 10/28/17 08:00 INR 1.14 10/28/17 08:00 APTT 29.7 Seconds (25.1-36.5) 10/27/17 07:20 Physical Exam - Head Exam Head Exam: ATRAUMATIC, NORMAL INSPECTION, NORMOCEPHALIC - Eye Exam Eye Exam: EOMI, Normal appearance - ENT Exam ENT Exam: Mucous Membranes Moist, Normal Exam - Respiratory Exam Respiratory Exam: Clear to Ausculation Bilateral, NORMAL BREATHING PATTERN. absent: Rhonchi, Wheezes - Cardiovascular Exam Cardiovascular Exam: REGULAR RHYTHM, +S1, +S2 - GI/Abdominal Exam GI & Abdominal Exam: Soft, nontender, bowel sounds present; colostomy bag present w/ no issue; draining well. No erythema or abnormal drainage appreciated - Extremities Exam Extremities Exam: absent: Normal Inspection - Back Exam Back Exam: absent: NORMAL INSPECTION Additional comments: Wound dressing CDI no discharge or malodor noted - Neurological Exam Neurological Exam: Alert, Awake, Oriented x3 - Psychiatric Exam Psychiatric exam: Normal Affect, Normal Mood - Skin Skin Exam: Normal Color, Warm Assessment and Plan - Assessment and Plan (Free Text) Assessment: 52 year old male pertinent history of chronic sacral ulcers, chronic UTI, paraplegia, and previous DVT presented with worsening bed sores. On admission, patient was afebrile with stable vitals, and no other SIRS criteria. Wound culture is now growing enterobacter, pansensitive to cipro, bactrim, ertapenem, gentamicin, merrem, and zosyn; urine culture growing ESBL proteus. 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 s/p Wound debridement POD#2 - C/w local wound care as per surgery reccs - C/w aztreonam IV - Started 10/20 - Day#9; Will require 5 weeks of total therapy - Urine growing ESBL+ Proteus - Started Gentamicin - Day 1/3 - C/w Lovenox 100 BID - C/w Home Warfarin 7mg QPM - ID consulted, recs appreciated - Tylenol prn for pain - Zofran prn for nausea - C/w baclofen - C/w air mattress, turn pt q 2 h - Further wound management recs as per wound care, surgery, and ID Subtherapeutic INR - Resumed Warfarin yesterday; INR today is 1.14 - Increased dose from 7mg to 9mg tonight - DC Lovenox once INR is therapeutic Ileostomy, chronic - Hx since Jan 2017 as per patient - Surgery consulted, f/u recs Hx paraplegia/immobility - PT following Hx IVDA - Urine drug screen negative GI/DVT ppx: Protonix/Lovenox (Warfarin on hold) Disposition plan: Patient is s/p debridement POD#2 today; He will require long-term IV antibiotic due to significant history of failed therapy. Patient seen, examined, and case discussed w/ attending physician Dr. Ameya Tee DO PGY1 Internal Medicine Janitor Supervisor - Pager [phone] <Miky Hou - Last Filed: 10/29/17 07:40> Objective - Vital Signs/Intake and Output Vital Signs (last 24 hours): Temp Pulse Resp BP Pulse Ox 97.8 F 58 L 19 107/69 99 10/28/17 22:00 10/28/17 22:00 10/28/17 22:00 10/28/17 22:00 10/28/17 22:00 Intake and Output: 10/29/17 10/29/17 06:59 18:59 Intake Total 1920 Output Total 2200 Balance -280 - Medications Medications: Current Medications Acetaminophen (Tylenol 325mg Tab) 650 mg PO Q6H PRN PRN Reason: Other Last Admin: 10/29/17 05:52 Dose: 650 mg Baclofen (Lioresal) 20 mg PO BID PRN PRN Reason: Pain, moderate (4-7) Last Admin: 10/29/17 05:52 Dose: 20 mg Docusate Sodium (Colace) 100 mg PO BID [facility] Last Admin: 10/28/17 18:18 Dose: 100 mg Enoxaparin Sodium (Lovenox) 100 mg SC Q12H [facility] PRN Reason: Protocol Last Admin: 10/28/17 21:30 Dose: 100 mg Aztreonam (Azactam 1 Gm) 100 mls @ 100 mls/hr IVPB Q8 [facility] PRN Reason: Protocol Last Admin: 10/29/17 05:54 Dose: 100 mls/hr Gentamicin Sulfate 175 mg/ (Sodium Chloride) 104.375 mls @ 100 mls/hr IVPB Q8 [facility] Stop: 10/30/17 22:00 Last Admin: 10/29/17 05:54 Dose: 100 mls/hr Morphine Sulfate (Morphine) 2 mg IVP Q4H PRN PRN Reason: Pain, severe (8-10) Last Admin: 10/27/17 19:38 Dose: 2 mg Ondansetron HCl (Zofran Inj) 4 mg IVP Q4 PRN PRN Reason: Nausea/Vomiting Pantoprazole Sodium (Protonix Ec Tab) 40 mg PO ACB [facility] Last Admin: 10/28/17 08:30 Dose: 40 mg Silver Sulfadiazine (Silvadene 1% 25 Gm) 0 gm TP DAILY [facility] Sodium Hypochlorite (Dakins Solution 0.25%) 1 ml TOP DAILY [facility] Last Admin: 10/28/17 10:25 Dose: Not Given Warfarin Sodium (Coumadin) 5 mg PO 1800 [facility] PRN Reason: Protocol Last Admin: 10/28/17 18:18 Dose: 5 mg Warfarin Sodium (Coumadin) 2 mg PO 1800 [facility] PRN Reason: Protocol Last Admin: 10/28/17 18:18 Dose: 2 mg - Labs Labs: 10/29/17 06:00 10/29/17 06:00 PT 13.7 SECONDS (9.4-12.5) H 10/29/17 06:00 INR 1.19 10/29/17 06:00 APTT 29.7 Seconds (25.1-36.5) 10/27/17 07:20 Attending/Attestation - Attestation I have personally seen and examined this patient.: Yes I have fully participated in the care of the patient.: Yes I have reviewed all pertinent clinical information, including history, physical exam and plan: Yes Notes (Text): 10/28/17 52 year old male with past medical history of paraplegia, epidural abscess, s/p colostomy, and sacral ulcers who is admitted for infected decubitus sacral ulcer. Bone scan was suggestive of osteomyelitis of coccyx bone. Patient is s/p OR debridement POD #2. Wound culture is growing enterobacter aerogenes. Ucx is growing proteus mirabilis. Case was discussed with Dr. Valadez today. Continue with iv antibiotics as per ID and wound care as per surgery. Possible plan for wound vac as per surgery. Patient is on lovenox/coumadin for history of DVT. INR is still subtherapeutic so coumadin dose is increased today. Miky Hou MD Hospitalist.
[2017-10-29] MEDS: GENTAMICIN IVPB SCH ×3 (05:54→21:24)
[2017-10-29] MEDS: SODIUM CHLORIDE 0.9% IVPB SCH ×3 (05:54→21:24)
[2017-10-29] MEDS: Aztreonam 1 Gm in NS 100mL 100 ML IVPB SCH ×3 (05:54→21:25)
[2017-10-29 06:19] LABS: BASO # 0.02 K/mm3 (0.0-2.0); BASO % 0.4 % (0.0-3.0); EOS # 0.1 (0.0-0.7); EOS % 1.7 % (1.5-5.0); GRAN # 2.98 (1.4-6.5); HEMOGLOBIN 11.4 g/dL (14.0-18.0); LYMPH # 1.7 (1.2-3.4); LYMPH % 31.5 % (22.0-35.0); MEAN CELL VOLUME 79.5 fl (80.0-105.0); MEAN CORPUSCULAR HGB CONC 32.7 g/dl (31.0-37.0); MEAN PLATELET VOLUME 10.2 fl (7.0-11.0); MONO # 0.6 (0.1-0.6); MONO % 11.4 % (1.0-6.0); RBC 4.39 10^6/uL (3.5-6.1); RED CELL DISTRIBUTION WIDTH 16.6 % (11.5-14.5); WHITE BLOOD COUNT 5.4 10^3/ul (4.5-11.0)
[2017-10-29 06:23] LABS: INR 1.19; PROTHROMBIN TIME 13.7 SECONDS (9.4-12.5)
[2017-10-29 06:43] LABS: BLOOD UREA NITROGEN 18 mg/dL (7-21); CALCIUM 9.4 mg/dL (8.4-10.5); GFR AFRICAN-AMERICAN > 60; GFR NON-AFRICAN AMERICAN > 60
--- NOTE | 2017-10-29 07:52 | CP.PCM.PN ---
Subjective - Date & Time of Evaluation Date of Evaluation: 10/29/17 Time of Evaluation: 07:00 - Subjective Subjective: Surgery Progress Note for Dr. Askew Pt seen and examined at bedside. Pt continues to deny fever, chills, chest pain , shortness of breath, n/v/d, urinary complaints or other symptoms. No acute events reported overnight. S/p placement of wound vac yesterday. Objective - Vital Signs/Intake and Output Vital Signs (last 24 hours): Temp Pulse Resp BP Pulse Ox 97.8 F 58 L 19 107/69 99 10/28/17 22:00 10/28/17 22:00 10/28/17 22:00 10/28/17 22:00 10/28/17 22:00 Intake and Output: 10/29/17 10/29/17 06:59 18:59 Intake Total 1920 Output Total 2200 Balance -280 - Medications Medications: Current Medications Acetaminophen (Tylenol 325mg Tab) 650 mg PO Q6H PRN PRN Reason: Other Last Admin: 10/29/17 05:52 Dose: 650 mg Baclofen (Lioresal) 20 mg PO BID PRN PRN Reason: Pain, moderate (4-7) Last Admin: 10/29/17 05:52 Dose: 20 mg Docusate Sodium (Colace) 100 mg PO BID [facility] Last Admin: 10/28/17 18:18 Dose: 100 mg Enoxaparin Sodium (Lovenox) 100 mg SC Q12H [facility] PRN Reason: Protocol Last Admin: 10/28/17 21:30 Dose: 100 mg Aztreonam (Azactam 1 Gm) 100 mls @ 100 mls/hr IVPB Q8 [facility] PRN Reason: Protocol Last Admin: 10/29/17 05:54 Dose: 100 mls/hr Gentamicin Sulfate 175 mg/ (Sodium Chloride) 104.375 mls @ 100 mls/hr IVPB Q8 [facility] Stop: 10/30/17 22:00 Last Admin: 10/29/17 05:54 Dose: 100 mls/hr Morphine Sulfate (Morphine) 2 mg IVP Q4H PRN PRN Reason: Pain, severe (8-10) Last Admin: 10/27/17 19:38 Dose: 2 mg Ondansetron HCl (Zofran Inj) 4 mg IVP Q4 PRN PRN Reason: Nausea/Vomiting Pantoprazole Sodium (Protonix Ec Tab) 40 mg PO ACB [facility] Last Admin: 10/28/17 08:30 Dose: 40 mg Silver Sulfadiazine (Silvadene 1% 25 Gm) 0 gm TP DAILY [facility] Sodium Hypochlorite (Dakins Solution 0.25%) 1 ml TOP DAILY [facility] Last Admin: 10/28/17 10:25 Dose: Not Given Warfarin Sodium (Coumadin) 5 mg PO 1800 [facility] PRN Reason: Protocol Last Admin: 10/28/17 18:18 Dose: 5 mg Warfarin Sodium (Coumadin) 2 mg PO 1800 [facility] PRN Reason: Protocol Last Admin: 10/28/17 18:18 Dose: 2 mg - Labs Labs: 10/29/17 06:00 10/29/17 06:00 PT 13.7 SECONDS (9.4-12.5) H 10/29/17 06:00 INR 1.19 10/29/17 06:00 APTT 29.7 Seconds (25.1-36.5) 10/27/17 07:20 - Constitutional Appears: Non-toxic, No Acute Distress - Head Exam Head Exam: ATRAUMATIC, NORMAL INSPECTION - Eye Exam Eye Exam: EOMI, Normal appearance, PERRL - ENT Exam ENT Exam: Mucous Membranes Moist - Neck Exam Neck Exam: Full ROM - Respiratory Exam Respiratory Exam: Clear to Ausculation Bilateral, NORMAL BREATHING PATTERN - Cardiovascular Exam Cardiovascular Exam: REGULAR RHYTHM, +S1, +S2 - GI/Abdominal Exam GI & Abdominal Exam: Soft, Normal Bowel Sounds Additional comments: LLQ colostomy in place with stool in bag - Extremities Exam Extremities Exam: Normal Capillary Refill, Normal Inspection - Back Exam Additional comments: Stage 2 sacral ulcer and Stage 4 ischial ulcer, no abnormal drainage noted; wound vac on ischial ulcer - Neurological Exam Neurological Exam: Alert, Awake, Oriented x3 - Skin Skin Exam: Dry, Warm Assessment and Plan - Assessment and Plan (Free Text) Assessment: 52 y o male with stage 4 ischial ulcer with possible osteomyelitis, and Stage 2 sacral ulcer. S/p debridement of R ischial ulcer (stage 4), R gluteal ulcer ( stage 2) POD#3. Plan: -Cont. local wound care with santyl to sacrum and dakins packings to ischial ulcer -C/w air mattress and off loading -IV antibiotics (Aztreonam) as per ID, stating patient may need 4-6 weeks of antibiotics for suspected osteomyelitis; PICC line placed -Wound Vac placed yesterday -F/u INR; c/w anticoagulation at this time -Further recommendations per Dr. Azar Aguilar, DO PGY-1
[2017-10-29] MEDS: Pantoprazole 40 mg EC Tab PO SCH (08:40)
--- NOTE | 2017-10-29 08:58 | CP.PCM.PN ---
<Hank Tee - Last Filed: 10/29/17 19:17> Subjective - Date & Time of Evaluation Date of Evaluation: 10/29/17 Time of Evaluation: 08:56 - Subjective Subjective: Hank Tee DO PGY1 Internal Medicine Crm Specialist - Hospital Progress Note No acute events reported overnight. Patient is afebrile, no chills; moving bowels appropriately into colostomy. No SOB/Cough, no chest pain. No issues voiced by patient or nursing. 12 System ROS unremarkable Objective - Vital Signs/Intake and Output Vital Signs (last 24 hours): Temp Pulse Resp BP Pulse Ox 97.9 F 67 20 115/74 98 10/29/17 06:00 10/29/17 06:00 10/29/17 06:00 10/29/17 06:00 10/29/17 06:00 Intake and Output: 10/29/17 10/29/17 06:59 18:59 Intake Total 1920 Output Total 2200 Balance -280 - Medications Medications: Current Medications Acetaminophen (Tylenol 325mg Tab) 650 mg PO Q6H PRN PRN Reason: Other Last Admin: 10/29/17 05:52 Dose: 650 mg Baclofen (Lioresal) 20 mg PO BID PRN PRN Reason: Pain, moderate (4-7) Last Admin: 10/29/17 05:52 Dose: 20 mg Docusate Sodium (Colace) 100 mg PO BID [facility] Last Admin: 10/28/17 18:18 Dose: 100 mg Enoxaparin Sodium (Lovenox) 100 mg SC Q12H [facility] PRN Reason: Protocol Last Admin: 10/28/17 21:30 Dose: 100 mg Aztreonam (Azactam 1 Gm) 100 mls @ 100 mls/hr IVPB Q8 [facility] PRN Reason: Protocol Last Admin: 10/29/17 05:54 Dose: 100 mls/hr Gentamicin Sulfate 175 mg/ (Sodium Chloride) 104.375 mls @ 100 mls/hr IVPB Q8 [facility] Stop: 10/30/17 22:00 Last Admin: 10/29/17 05:54 Dose: 100 mls/hr Morphine Sulfate (Morphine) 2 mg IVP Q4H PRN PRN Reason: Pain, severe (8-10) Last Admin: 10/27/17 19:38 Dose: 2 mg Ondansetron HCl (Zofran Inj) 4 mg IVP Q4 PRN PRN Reason: Nausea/Vomiting Pantoprazole Sodium (Protonix Ec Tab) 40 mg PO ACB [facility] Last Admin: 10/28/17 08:30 Dose: 40 mg Silver Sulfadiazine (Silvadene 1% 25 Gm) 0 gm TP DAILY [facility] Sodium Hypochlorite (Dakins Solution 0.25%) 1 ml TOP DAILY [facility] Last Admin: 10/28/17 10:25 Dose: Not Given Warfarin Sodium (Coumadin) 5 mg PO 1800 [facility] PRN Reason: Protocol Last Admin: 10/28/17 18:18 Dose: 5 mg Warfarin Sodium (Coumadin) 2 mg PO 1800 [facility] PRN Reason: Protocol Last Admin: 10/28/17 18:18 Dose: 2 mg - Labs Labs: 10/29/17 06:00 10/29/17 06:00 PT 13.7 SECONDS (9.4-12.5) H 10/29/17 06:00 INR 1.19 10/29/17 06:00 APTT 29.7 Seconds (25.1-36.5) 10/27/17 07:20 Physical Exam - Head Exam Head Exam: ATRAUMATIC, NORMAL INSPECTION, NORMOCEPHALIC - Eye Exam Eye Exam: EOMI, Normal appearance - ENT Exam ENT Exam: Mucous Membranes Moist, Normal Exam - Respiratory Exam Respiratory Exam: Clear to Ausculation Bilateral, NORMAL BREATHING PATTERN. absent: Rhonchi, Wheezes - Cardiovascular Exam Cardiovascular Exam: REGULAR RHYTHM, +S1, +S2 - GI/Abdominal Exam GI & Abdominal Exam: Soft, nontender, bowel sounds present; colostomy bag present w/ no issue; draining well. No erythema or abnormal drainage appreciated - Extremities Exam Extremities Exam: absent: Normal Inspection - Back Exam Back Exam: absent: NORMAL INSPECTION Additional comments: Wound vac is in place, set to suction; dressing is CDI; no malodor or excessive discharge noted. - Neurological Exam Neurological Exam: Alert, Awake, Oriented x3 - Psychiatric Exam Psychiatric exam: Normal Affect, Normal Mood - Skin Skin Exam: Normal Color, Warm Assessment and Plan - Assessment and Plan (Free Text) Assessment: 52 year old male pertinent history of chronic sacral ulcers, chronic UTI, paraplegia, and previous DVT presented with worsening bed sores. On admission, patient was afebrile with stable vitals, and no other SIRS criteria. Wound culture is now growing enterobacter, pansensitive to cipro, bactrim, ertapenem, gentamicin, merrem, and zosyn; urine culture growing ESBL proteus. 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 s/p Wound debridement POD#3 - C/w local wound care, and wound vac management as per surgery - C/w aztreonam IV - Antibiotic therapy Started 10/20; Will require 5 weeks of total therapy - Urine growing ESBL+ Proteus - Started Gentamicin - Day 2/3 - C/w Lovenox 100 BID - Warfarin increased from 9 to 10 - ID consulted, recs appreciated - Tylenol prn for pain - Zofran prn for nausea - C/w baclofen - C/w air mattress, turn pt q 2 h - Further wound management recs as per wound care, surgery, and ID Subtherapeutic INR - Resumed Warfarin yesterday; INR today is 1.19 < 1.14 - Increased dose from 9mg to 10mg tonight - DC Lovenox once INR is therapeutic Ileostomy, chronic - Hx since Jan 2017 as per patient - Surgery consulted, f/u recs Hx paraplegia/immobility - PT following Hx IVDA - Urine drug screen negative GI/DVT ppx: Protonix/Lovenox (Warfarin on hold) Disposition plan: Patient is s/p debridement POD#3 today; He will require custodial IV antibiotic due to significant history of failed therapy. Patient seen, examined, and case discussed w/ attending physician Dr. Ameya Tee DO PGY1 Internal Medicine Crm Specialist - Pager [phone] <Miky Hou - Last Filed: 10/30/17 06:38> Objective - Vital Signs/Intake and Output Vital Signs (last 24 hours): Temp Pulse Resp BP Pulse Ox 97.8 F 64 18 110/64 99 10/29/17 22:52 10/29/17 22:52 10/29/17 22:52 10/29/17 22:52 10/29/17 22:52 Intake and Output: 10/29/17 10/30/17 18:59 06:59 Intake Total 900 Output Total 2500 Balance -1600 - Medications Medications: Current Medications Acetaminophen (Tylenol 325mg Tab) 650 mg PO Q6H PRN PRN Reason: Other Last Admin: 10/30/17 05:41 Dose: 650 mg Baclofen (Lioresal) 20 mg PO BID PRN PRN Reason: Pain, moderate (4-7) Last Admin: 10/29/17 17:29 Dose: 20 mg Docusate Sodium (Colace) 100 mg PO BID [facility] Last Admin: 10/29/17 09:32 Dose: 100 mg Enoxaparin Sodium (Lovenox) 100 mg SC Q12H [facility] PRN Reason: Protocol Last Admin: 10/29/17 21:22 Dose: 100 mg Aztreonam (Azactam 1 Gm) 100 mls @ 100 mls/hr IVPB Q8 [facility] PRN Reason: Protocol Last Admin: 10/30/17 05:34 Dose: 100 mls/hr Gentamicin Sulfate 175 mg/ (Sodium Chloride) 104.375 mls @ 100 mls/hr IVPB Q8 [facility] Stop: 10/30/17 22:00 Last Admin: 10/30/17 05:35 Dose: 100 mls/hr Morphine Sulfate (Morphine) 2 mg IVP Q4H PRN PRN Reason: Pain, severe (8-10) Last Admin: 10/27/17 19:38 Dose: 2 mg Ondansetron HCl (Zofran Inj) 4 mg IVP Q4 PRN PRN Reason: Nausea/Vomiting Pantoprazole Sodium (Protonix Ec Tab) 40 mg PO ACB [facility] Last Admin: 10/29/17 08:40 Dose: 40 mg Silver Sulfadiazine (Silvadene 1% 25 Gm) 0 gm TP DAILY [facility] Last Admin: 10/29/17 09:33 Dose: 1 gm Sodium Hypochlorite (Dakins Solution 0.25%) 1 ml TOP DAILY [facility] Last Admin: 10/29/17 09:33 Dose: Not Given Warfarin Sodium (Coumadin) 10 mg PO 1800 [facility] PRN Reason: Protocol Last Admin: 10/29/17 17:29 Dose: 10 mg - Labs Labs: 10/29/17 06:00 10/29/17 06:00 PT 13.7 SECONDS (9.4-12.5) H 10/29/17 06:00 INR 1.19 10/29/17 06:00 APTT 29.7 Seconds (25.1-36.5) 10/27/17 07:20 Attending/Attestation - Attestation I have personally seen and examined this patient.: Yes I have fully participated in the care of the patient.: Yes I have reviewed all pertinent clinical information, including history, physical exam and plan: Yes Notes (Text): 10/29/17 52 year old male with past medical history of paraplegia, epidural abscess, s/p colostomy, and sacral ulcers who is admitted for infected decubitus sacral ulcer. Bone scan was suggestive of osteomyelitis of coccyx bone. Patient is s/p OR debridement POD #3. He is also s/p wound vac. Wound culture is growing enterobacter aerogenes. Ucx is growing proteus mirabilis. Continue with iv antibiotics as per ID and wound care as per surgery. Patient is on lovenox/coumadin for history of DVT. INR is still subtherapeutic so coumadin dose is increased today to 10 mg. Miky Hou MD Hospitalist.
[2017-10-29] MEDS: Enoxaparin 100 mg Syringe SC SCH ×2 (09:31→21:22)
[2017-10-29] MEDS: Silver Sulfadiazine 1% Cream (25 gm) TP SCH (09:33)
[2017-10-29] MEDS: Dakin's Topical 0.25%-Half Strength (480 ml) TOP SCH (09:33)
--- NOTE | 2017-10-29 17:48 | CP.PCM.PN ---
Subjective - Date & Time of Evaluation Date of Evaluation: 10/29/17 Time of Evaluation: 17:00 - Subjective Subjective: Infectious Disease Follow Up: October 29, 2017 52 yo male with extensive medical history including paraplegia, IVDA, T2 epidural abscess, ileostomy, and chronic sacral decubiti presenting with worsening sacral decubiti ulcerations. He states that he has discharge and malodor at the ulceration sites. The patient is bedbound. Bone scan done. Results showing possible osteomyelitis of the right ischium. For debridement of the sacral decubiti by Dr. Askew... done on Thursday. ESBL + Proteus in urine cultures. No renal disease. No new issues at this time. PICC placed. Wound vac in place. Objective - Vital Signs/Intake and Output Vital Signs (last 24 hours): Temp Pulse Resp BP Pulse Ox 98.2 F 87 18 126/72 100 10/29/17 14:00 10/29/17 14:00 10/29/17 14:00 10/29/17 14:00 10/29/17 14:00 Intake and Output: 10/29/17 10/29/17 06:59 18:59 Intake Total 1920 Output Total 2200 Balance -280 - Medications Medications: Current Medications Acetaminophen (Tylenol 325mg Tab) 650 mg PO Q6H PRN PRN Reason: Other Last Admin: 10/29/17 14:57 Dose: 650 mg Baclofen (Lioresal) 20 mg PO BID PRN PRN Reason: Pain, moderate (4-7) Last Admin: 10/29/17 17:29 Dose: 20 mg Docusate Sodium (Colace) 100 mg PO BID [facility] Last Admin: 10/29/17 09:32 Dose: 100 mg Enoxaparin Sodium (Lovenox) 100 mg SC Q12H [facility] PRN Reason: Protocol Last Admin: 10/29/17 09:31 Dose: 100 mg Aztreonam (Azactam 1 Gm) 100 mls @ 100 mls/hr IVPB Q8 [facility] PRN Reason: Protocol Last Admin: 10/29/17 14:58 Dose: 100 mls/hr Gentamicin Sulfate 175 mg/ (Sodium Chloride) 104.375 mls @ 100 mls/hr IVPB Q8 [facility] Stop: 10/30/17 22:00 Last Admin: 10/29/17 14:59 Dose: 100 mls/hr Morphine Sulfate (Morphine) 2 mg IVP Q4H PRN PRN Reason: Pain, severe (8-10) Last Admin: 10/27/17 19:38 Dose: 2 mg Ondansetron HCl (Zofran Inj) 4 mg IVP Q4 PRN PRN Reason: Nausea/Vomiting Pantoprazole Sodium (Protonix Ec Tab) 40 mg PO ACB [facility] Last Admin: 10/29/17 08:40 Dose: 40 mg Silver Sulfadiazine (Silvadene 1% 25 Gm) 0 gm TP DAILY [facility] Last Admin: 10/29/17 09:33 Dose: 1 gm Sodium Hypochlorite (Dakins Solution 0.25%) 1 ml TOP DAILY [facility] Last Admin: 10/29/17 09:33 Dose: Not Given Warfarin Sodium (Coumadin) 10 mg PO 1800 [facility] PRN Reason: Protocol Last Admin: 10/29/17 17:29 Dose: 10 mg - Labs Labs: 10/29/17 06:00 10/29/17 06:00 PT 13.7 SECONDS (9.4-12.5) H 10/29/17 06:00 INR 1.19 10/29/17 06:00 APTT 29.7 Seconds (25.1-36.5) 10/27/17 07:20 - Constitutional Appears: Non-toxic, No Acute Distress, Chronically Ill - Head Exam Head Exam: ATRAUMATIC, NORMOCEPHALIC - Eye Exam Eye Exam: EOMI, PERRL Pupil Exam: NORMAL ACCOMODATION, PERRL - ENT Exam ENT Exam: Mucous Membranes Moist, Normal External Ear Exam, TM's Normal Bilaterally - Neck Exam Neck Exam: Full ROM, Normal Inspection - Respiratory Exam Respiratory Exam: Clear to Ausculation Bilateral, NORMAL BREATHING PATTERN. absent: Rales, Rhonchi, Wheezes - Cardiovascular Exam Cardiovascular Exam: REGULAR RHYTHM, RRR, +S1, +S2 - GI/Abdominal Exam GI & Abdominal Exam: Soft, Normal Bowel Sounds. absent: Distended, Tenderness Additional comments: colostomy bag draining well - Extremities Exam Additional comments: paraplegic, contracted extremities all four limbs. Cachetic. - Neurological Exam Neurological Exam: Alert, Awake, CN II-XII Intact, Oriented x3 - Psychiatric Exam Psychiatric exam: Normal Affect, Normal Mood - Skin Additional comments: pt has a stage IV sacral ulcer over his right ischium s/p debridement. pt has a stage I ulver on his left and right buttocks Assessment and Plan - Assessment and Plan (Free Text) Assessment: 52 yo male with extensive sacral decubiti stage IV in additional to other medical issues. Patient with known rash with PCN. Unclear why Zosyn was given in PCN allergy. 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 For now would start with Aztreonam and obtain wound cultures (hopefully done before any antibiotics were started.). Supportive and wound care. Surgery evaluation for potential debridement. Can extend coverage if MRSA is found. There may need to be a desensitization to carbapenems if resistant gram negatives are found in cultures. Gram negative rods in two cultures. Results of the bone scan show questionable osteomyelitis findings of the right ischium. Sacral wound with Enterobacter. May need 4 to 6 weeks of IV antibiotics for questionable osteomyelitis. OR debridement on Thursday10/26/2017. ESBL+ Proteus in urine cultures. Gentamicin IV started for treatment of 3 days. Enterobacter in wound cultures. Currently on Aztreonam for antibiotic coverage with the short course of Gentamicin (Day 2) Wound vac placed. Thank you for allowing me to participate in the care of the patient, we will follow with you.
[2017-10-30] MEDS: Aztreonam 1 Gm in NS 100mL 100 ML IVPB SCH ×3 (05:34→21:06)
[2017-10-30] MEDS: SODIUM CHLORIDE 0.9% IVPB SCH ×3 (05:35→22:16)
[2017-10-30] MEDS: GENTAMICIN IVPB SCH ×3 (05:35→22:16)
[2017-10-30 07:07] LABS: BASO # 0.01 K/mm3 (0.0-2.0); BASO % 0.2 % (0.0-3.0); EOS # 0.1 (0.0-0.7); EOS % 2.2 % (1.5-5.0); GRAN # 3.8 (1.4-6.5); GRAN % 64.3 % (50.0-68.0); HEMOGLOBIN 11.5 g/dL (14.0-18.0); LYMPH # 1.3 (1.2-3.4); MEAN CELL VOLUME 79.8 fl (80.0-105.0); MEAN CORPUSCULAR HEMOGLOBIN 25.5 pg (25.0-35.0); MEAN CORPUSCULAR HGB CONC 31.9 g/dl (31.0-37.0); MONO # 0.7 (0.1-0.6); MONO % 11.3 % (1.0-6.0); RBC 4.51 10^6/uL (3.5-6.1); RED CELL DISTRIBUTION WIDTH 16.7 % (11.5-14.5); WHITE BLOOD COUNT 5.9 10^3/ul (4.5-11.0)
[2017-10-30 07:10] LABS: BLOOD UREA NITROGEN 18 mg/dL (7-21); CALCIUM 9.6 mg/dL (8.4-10.5); GFR AFRICAN-AMERICAN > 60; GFR NON-AFRICAN AMERICAN > 60
[2017-10-30 07:11] LABS: INR 1.34; PROTHROMBIN TIME 15.5 SECONDS (9.4-12.5)
[2017-10-30] MEDS: Pantoprazole 40 mg EC Tab PO SCH (09:45)
[2017-10-30] MEDS: Silver Sulfadiazine 1% Cream (25 gm) TP SCH (09:45)
[2017-10-30] MEDS: Enoxaparin 100 mg Syringe SC SCH ×2 (09:45→21:07)
[2017-10-30] MEDS: Dakin's Topical 0.25%-Half Strength (480 ml) TOP SCH (09:46)
--- NOTE | 2017-10-30 14:51 | CP.PCM.PN ---
Subjective - Date & Time of Evaluation Date of Evaluation: 10/30/17 Time of Evaluation: 13:15 - Subjective Subjective: Infectious Disease Follow Up: October 30, 2017 52 yo male with extensive medical history including paraplegia, IVDA, T2 epidural abscess, ileostomy, and chronic sacral decubiti presenting with worsening sacral decubiti ulcerations. He states that he has discharge and malodor at the ulceration sites. The patient is bedbound. Bone scan done. Results showing possible osteomyelitis of the right ischium. For debridement of the sacral decubiti by Dr. Askew... done on Thursday. No definitive signs of osteomyelitis. ESBL + Proteus in urine cultures. No renal disease. No new issues at this time. PICC placed. Wound vac in place. Objective - Vital Signs/Intake and Output Vital Signs (last 24 hours): Temp Pulse Resp BP Pulse Ox 98.2 F 56 L 20 120/58 L 99 10/30/17 06:00 10/30/17 06:00 10/30/17 06:00 10/30/17 06:00 10/30/17 06:00 Intake and Output: 10/30/17 10/30/17 06:59 18:59 Intake Total 900 Output Total 2500 Balance -1600 - Medications Medications: Current Medications Acetaminophen (Tylenol 325mg Tab) 650 mg PO Q6H PRN PRN Reason: Other Last Admin: 10/30/17 13:45 Dose: 650 mg Baclofen (Lioresal) 20 mg PO BID PRN PRN Reason: Pain, moderate (4-7) Last Admin: 10/30/17 13:45 Dose: 20 mg Docusate Sodium (Colace) 100 mg PO BID [facility] Last Admin: 10/30/17 09:46 Dose: Not Given Enoxaparin Sodium (Lovenox) 100 mg SC Q12H [facility] PRN Reason: Protocol Last Admin: 10/30/17 09:45 Dose: 100 mg Aztreonam (Azactam 1 Gm) 100 mls @ 100 mls/hr IVPB Q8 [facility] PRN Reason: Protocol Last Admin: 10/30/17 13:39 Dose: 100 mls/hr Gentamicin Sulfate 175 mg/ (Sodium Chloride) 104.375 mls @ 100 mls/hr IVPB Q8 [facility] Stop: 10/30/17 22:00 Last Admin: 10/30/17 13:39 Dose: 100 mls/hr Ondansetron HCl (Zofran Inj) 4 mg IVP Q4 PRN PRN Reason: Nausea/Vomiting Pantoprazole Sodium (Protonix Ec Tab) 40 mg PO ACB [facility] Last Admin: 10/30/17 09:45 Dose: 40 mg Silver Sulfadiazine (Silvadene 1% 25 Gm) 0 gm TP DAILY [facility] Last Admin: 10/30/17 09:45 Dose: 25 gm Sodium Hypochlorite (Dakins Solution 0.25%) 1 ml TOP DAILY [facility] Last Admin: 10/30/17 09:46 Dose: Not Given Warfarin Sodium (Coumadin) 10 mg PO 1800 [facility] PRN Reason: Protocol Last Admin: 10/29/17 17:29 Dose: 10 mg - Labs Labs: 10/30/17 06:45 10/30/17 06:45 PT 15.5 SECONDS (9.4-12.5) H 10/30/17 06:45 INR 1.34 10/30/17 06:45 APTT 29.7 Seconds (25.1-36.5) 10/27/17 07:20 - Constitutional Appears: Non-toxic, No Acute Distress, Chronically Ill - Head Exam Head Exam: ATRAUMATIC, NORMOCEPHALIC - Eye Exam Eye Exam: EOMI, PERRL Pupil Exam: NORMAL ACCOMODATION, PERRL - ENT Exam ENT Exam: Mucous Membranes Moist, Normal External Ear Exam, TM's Normal Bilaterally - Neck Exam Neck Exam: Full ROM, Normal Inspection - Respiratory Exam Respiratory Exam: Clear to Ausculation Bilateral, NORMAL BREATHING PATTERN. absent: Rales, Rhonchi, Wheezes - Cardiovascular Exam Cardiovascular Exam: REGULAR RHYTHM, RRR, +S1, +S2 - GI/Abdominal Exam GI & Abdominal Exam: Soft, Normal Bowel Sounds. absent: Distended, Tenderness Additional comments: colostomy bag draining well - Extremities Exam Additional comments: paraplegic, contracted extremities all four limbs. Cachetic. - Neurological Exam Neurological Exam: Alert, Awake, CN II-XII Intact, Oriented x3 - Psychiatric Exam Psychiatric exam: Normal Affect, Normal Mood - Skin Additional comments: pt has a stage IV sacral ulcer over his right ischium s/p debridement. pt has a stage I ulver on his left and right buttocks Assessment and Plan - Assessment and Plan (Free Text) Assessment: 52 yo male with extensive sacral decubiti stage IV in additional to other medical issues. Patient with known rash with PCN. Unclear why Zosyn was given in PCN allergy. 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 For now would start with Aztreonam and obtain wound cultures (hopefully done before any antibiotics were started.). Supportive and wound care. Surgery evaluation for potential debridement. Can extend coverage if MRSA is found. There may need to be a desensitization to carbapenems if resistant gram negatives are found in cultures. Gram negative rods in two cultures. Results of the bone scan show questionable osteomyelitis findings of the right ischium. Sacral wound with Enterobacter. May need 4 to 6 weeks of IV antibiotics for questionable osteomyelitis. OR debridement on Thursday10/26/2017. ESBL+ Proteus in urine cultures. Gentamicin IV started for treatment of 3 days. Enterobacter in wound cultures. Currently on Aztreonam for antibiotic coverage with the short course of Gentamicin (Day 3... completing.) Wound vac placed. Supportive care. Thank you for allowing me to participate in the care of the patient, we will follow with you.
--- NOTE | 2017-10-30 16:04 | CP.PCM.PN ---
<Hank Tee - Last Filed: 10/30/17 16:01> Subjective - Date & Time of Evaluation Date of Evaluation: 10/30/17 Time of Evaluation: 16:01 - Subjective Subjective: Hank Tee DO PGY1 Internal Medicine Dispatch Clerk - Hospital Progress Note Patient was seen this AM at bedside; no issues or complaints voiced by patient overnight. Nursing reported no acute events overnight. Pt. is POD#4 from Sacral debridement. He is afebrile, no SOB, moving bowels appropriately emptying colostomy appropriately. 12 system ROS otherwise negative. Objective - Vital Signs/Intake and Output Vital Signs (last 24 hours): Temp Pulse Resp BP Pulse Ox 98 F 72 18 130/70 100 10/30/17 14:00 10/30/17 14:00 10/30/17 14:00 10/30/17 14:00 10/30/17 14:00 Intake and Output: 10/30/17 10/30/17 06:59 18:59 Intake Total 900 Output Total 2500 Balance -1600 - Medications Medications: Current Medications Acetaminophen (Tylenol 325mg Tab) 650 mg PO Q6H PRN PRN Reason: Other Last Admin: 10/30/17 13:45 Dose: 650 mg Baclofen (Lioresal) 20 mg PO BID PRN PRN Reason: Pain, moderate (4-7) Last Admin: 10/30/17 13:45 Dose: 20 mg Docusate Sodium (Colace) 100 mg PO BID [facility] Last Admin: 10/30/17 09:46 Dose: Not Given Enoxaparin Sodium (Lovenox) 100 mg SC Q12H [facility] PRN Reason: Protocol Last Admin: 10/30/17 09:45 Dose: 100 mg Aztreonam (Azactam 1 Gm) 100 mls @ 100 mls/hr IVPB Q8 [facility] PRN Reason: Protocol Last Admin: 10/30/17 13:39 Dose: 100 mls/hr Gentamicin Sulfate 175 mg/ (Sodium Chloride) 104.375 mls @ 100 mls/hr IVPB Q8 [facility] Stop: 10/30/17 22:00 Last Admin: 10/30/17 13:39 Dose: 100 mls/hr Ondansetron HCl (Zofran Inj) 4 mg IVP Q4 PRN PRN Reason: Nausea/Vomiting Pantoprazole Sodium (Protonix Ec Tab) 40 mg PO ACB [facility] Last Admin: 10/30/17 09:45 Dose: 40 mg Silver Sulfadiazine (Silvadene 1% 25 Gm) 0 gm TP DAILY [facility] Last Admin: 10/30/17 09:45 Dose: 25 gm Sodium Hypochlorite (Dakins Solution 0.25%) 1 ml TOP DAILY [facility] Last Admin: 10/30/17 09:46 Dose: Not Given Warfarin Sodium (Coumadin) 10 mg PO 1800 [facility] PRN Reason: Protocol Last Admin: 10/29/17 17:29 Dose: 10 mg - Labs Labs: 10/30/17 06:45 10/30/17 06:45 PT 15.5 SECONDS (9.4-12.5) H 10/30/17 06:45 INR 1.34 10/30/17 06:45 APTT 29.7 Seconds (25.1-36.5) 10/27/17 07:20 Physical Exam - Head Exam Head Exam: ATRAUMATIC, NORMAL INSPECTION, NORMOCEPHALIC - Eye Exam Eye Exam: EOMI, Normal appearance - ENT Exam ENT Exam: Mucous Membranes Moist, Normal Exam - Respiratory Exam Respiratory Exam: Clear to Ausculation Bilateral, NORMAL BREATHING PATTERN. absent: Rhonchi, Wheezes - Cardiovascular Exam Cardiovascular Exam: REGULAR RHYTHM, +S1, +S2 - GI/Abdominal Exam GI & Abdominal Exam: Soft, nontender, bowel sounds present; colostomy bag present w/ no issue; draining well. No erythema or abnormal drainage appreciated - Extremities Exam Extremities Exam: absent: Normal Inspection - Back Exam Back Exam: absent: NORMAL INSPECTION Additional comments: Wound vac is in place, set to suction; dressing is CDI; no malodor or excessive discharge noted. - Neurological Exam Neurological Exam: Alert, Awake, Oriented x3 - Psychiatric Exam Psychiatric exam: Normal Affect, Normal Mood - Skin Skin Exam: Normal Color, Warm Assessment and Plan - Assessment and Plan (Free Text) Assessment: 52 year old male pertinent history of chronic sacral ulcers, chronic UTI, paraplegia, and previous DVT presented with worsening bed sores. On admission, patient was afebrile with stable vitals, and no other SIRS criteria. Wound culture is now growing enterobacter, pansensitive to cipro, bactrim, ertapenem, gentamicin, merrem, and zosyn; urine culture growing ESBL proteus. 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 s/p Wound debridement POD#4 - C/w local wound care, and wound vac management as per surgery - C/w aztreonam IV - Antibiotic therapy Started 10/20; Will require 5 weeks of total therapy - Urine growing ESBL+ Proteus - Gentamicin - Day 3/3 - Will DC Getamicin tommorrow - C/w Lovenox 100 BID - Warfarin increased from 9 to 10 - ID consulted, recs appreciated - Tylenol prn for pain - Zofran prn for nausea - C/w baclofen - C/w air mattress, turn pt q 2 h - Further wound management recs as per wound care, surgery, and ID Subtherapeutic INR - Resumed Warfarin yesterday; INR today is 1.34< 1.19 - C/w Warfarin 10mg - DC Lovenox once INR is therapeutic Ileostomy, chronic - Hx since Jan 2017 as per patient - Surgery consulted, f/u recs Hx paraplegia/immobility - PT following Hx IVDA - Urine drug screen negative GI/DVT ppx: Protonix/Lovenox (Warfarin on hold) Disposition plan: Patient is s/p debridement POD4 today; He will require exterminator helper IV antibiotic due to significant history of failed therapy. Patient seen, examined, and case discussed w/ attending physician Dr. Ameya Tee DO PGY1 Internal Medicine Dispatch Clerk - Pager [phone] <Miky Hou - Last Filed: 10/30/17 17:34> Objective - Vital Signs/Intake and Output Vital Signs (last 24 hours): Temp Pulse Resp BP Pulse Ox 98 F 72 18 130/70 100 10/30/17 14:00 10/30/17 14:00 10/30/17 14:00 10/30/17 14:00 10/30/17 14:00 Intake and Output: 10/30/17 10/30/17 06:59 18:59 Intake Total 900 Output Total 2500 Balance -1600 - Medications Medications: Current Medications Acetaminophen (Tylenol 325mg Tab) 650 mg PO Q6H PRN PRN Reason: Other Last Admin: 10/30/17 13:45 Dose: 650 mg Baclofen (Lioresal) 20 mg PO BID PRN PRN Reason: Pain, moderate (4-7) Last Admin: 10/30/17 13:45 Dose: 20 mg Docusate Sodium (Colace) 100 mg PO BID [facility] Last Admin: 10/30/17 17:03 Dose: Not Given Enoxaparin Sodium (Lovenox) 100 mg SC Q12H [facility] PRN Reason: Protocol Last Admin: 10/30/17 09:45 Dose: 100 mg Aztreonam (Azactam 1 Gm) 100 mls @ 100 mls/hr IVPB Q8 [facility] PRN Reason: Protocol Last Admin: 10/30/17 13:39 Dose: 100 mls/hr Gentamicin Sulfate 175 mg/ (Sodium Chloride) 104.375 mls @ 100 mls/hr IVPB Q8 [facility] Stop: 10/30/17 22:00 Last Admin: 10/30/17 13:39 Dose: 100 mls/hr Ondansetron HCl (Zofran Inj) 4 mg IVP Q4 PRN PRN Reason: Nausea/Vomiting Pantoprazole Sodium (Protonix Ec Tab) 40 mg PO ACB [facility] Last Admin: 10/30/17 09:45 Dose: 40 mg Silver Sulfadiazine (Silvadene 1% 25 Gm) 0 gm TP DAILY [facility] Last Admin: 10/30/17 09:45 Dose: 25 gm Sodium Hypochlorite (Dakins Solution 0.25%) 1 ml TOP DAILY [facility] Last Admin: 10/30/17 09:46 Dose: Not Given Warfarin Sodium (Coumadin) 10 mg PO 1800 [facility] PRN Reason: Protocol Last Admin: 10/30/17 17:03 Dose: 10 mg - Labs Labs: 10/30/17 06:45 10/30/17 06:45 PT 15.5 SECONDS (9.4-12.5) H 10/30/17 06:45 INR 1.34 10/30/17 06:45 APTT 29.7 Seconds (25.1-36.5) 10/27/17 07:20 Attending/Attestation - Attestation I have personally seen and examined this patient.: Yes I have fully participated in the care of the patient.: Yes I have reviewed all pertinent clinical information, including history, physical exam and plan: Yes Notes (Text): 10/30/17 17:33 52 year old male with past medical history of paraplegia, epidural abscess, s/p colostomy, and sacral ulcers who is admitted for infected decubitus sacral ulcer. Bone scan was suggestive of osteomyelitis of coccyx bone. Patient is s/p OR debridement POD #4. He is also s/p wound vac. He is s/p picc line. Wound culture is growing enterobacter aerogenes. Ucx is growing proteus mirabilis. Continue with iv antibiotics as per ID and wound care as per surgery. Patient is on lovenox/coumadin for history of DVT. INR today is 1.34. Miky Hou MD Hospitalist.
[2017-10-31] MEDS: Aztreonam 1 Gm in NS 100mL 100 ML IVPB SCH ×3 (05:44→22:05)
[2017-10-31 06:07] LABS: BASO # 0.03 K/mm3 (0.0-2.0); BASO % 0.6 % (0.0-3.0); EOS # 0.1 (0.0-0.7); EOS % 2.7 % (1.5-5.0); GRAN # 2.71 (1.4-6.5); GRAN % 57.2 % (50.0-68.0); HEMOGLOBIN 11.2 g/dL (14.0-18.0); LYMPH # 1.4 (1.2-3.4); LYMPH % 28.8 % (22.0-35.0); MEAN CELL VOLUME 79.7 fl (80.0-105.0); MEAN CORPUSCULAR HEMOGLOBIN 25.6 pg (25.0-35.0); MEAN CORPUSCULAR HGB CONC 32.1 g/dl (31.0-37.0); MEAN PLATELET VOLUME 10.4 fl (7.0-11.0); MONO # 0.5 (0.1-0.6); MONO % 10.7 % (1.0-6.0); RBC 4.38 10^6/uL (3.5-6.1); RED CELL DISTRIBUTION WIDTH 16.7 % (11.5-14.5); WHITE BLOOD COUNT 4.8 10^3/ul (4.5-11.0)
[2017-10-31 06:10] LABS: BLOOD UREA NITROGEN 19 mg/dL (7-21); CALCIUM 9.4 mg/dL (8.4-10.5); GFR AFRICAN-AMERICAN > 60; GFR NON-AFRICAN AMERICAN > 60; INR 1.75; PROTHROMBIN TIME 20.3 SECONDS (9.4-12.5)
[2017-10-31] MEDS: Pantoprazole 40 mg EC Tab PO SCH (06:33)
--- NOTE | 2017-10-31 07:50 | CP.PCM.PN ---
Subjective - Date & Time of Evaluation Date of Evaluation: 10/31/17 Time of Evaluation: 06:40 - Subjective Subjective: General Surgery Note for Dr. Askew Patient seen and examined at bedside. No acute events reported overnight. Wound vac was changed today. Patient has no complaints. He is requiring intermediate teacher IV antibiotics. Objective - Vital Signs/Intake and Output Vital Signs (last 24 hours): Temp Pulse Resp BP Pulse Ox 98.4 F 74 18 108/72 98 10/30/17 22:54 10/30/17 22:54 10/30/17 22:54 10/30/17 22:54 10/30/17 22:54 Intake and Output: 10/31/17 10/31/17 06:59 18:59 Intake Total 600 Output Total 3000 Balance -2400 - Medications Medications: Current Medications Acetaminophen (Tylenol 325mg Tab) 650 mg PO Q6H PRN PRN Reason: Other Last Admin: 10/31/17 06:22 Dose: 650 mg Baclofen (Lioresal) 20 mg PO BID PRN PRN Reason: Pain, moderate (4-7) Last Admin: 10/31/17 06:23 Dose: 20 mg Docusate Sodium (Colace) 100 mg PO BID [facility] Last Admin: 10/30/17 17:03 Dose: Not Given Enoxaparin Sodium (Lovenox) 100 mg SC Q12H [facility] PRN Reason: Protocol Last Admin: 10/30/17 21:07 Dose: 100 mg Aztreonam (Azactam 1 Gm) 100 mls @ 100 mls/hr IVPB Q8 [facility] PRN Reason: Protocol Last Admin: 10/31/17 05:44 Dose: 100 mls/hr Ondansetron HCl (Zofran Inj) 4 mg IVP Q4 PRN PRN Reason: Nausea/Vomiting Pantoprazole Sodium (Protonix Ec Tab) 40 mg PO ACB [facility] Last Admin: 10/31/17 06:33 Dose: 40 mg Silver Sulfadiazine (Silvadene 1% 25 Gm) 0 gm TP DAILY [facility] Last Admin: 10/30/17 09:45 Dose: 25 gm Sodium Hypochlorite (Dakins Solution 0.25%) 1 ml TOP DAILY [facility] Last Admin: 10/30/17 09:46 Dose: Not Given Warfarin Sodium (Coumadin) 10 mg PO 1800 [facility] PRN Reason: Protocol Last Admin: 10/30/17 17:03 Dose: 10 mg - Labs Labs: 10/31/17 05:40 10/31/17 05:40 PT 20.3 SECONDS (9.4-12.5) H 10/31/17 05:40 INR 1.75 10/31/17 05:40 APTT 29.7 Seconds (25.1-36.5) 10/27/17 07:20 - Additional Findings Additional findings: - Constitutional Appears: Non-toxic, No Acute Distress - Head Exam Head Exam: ATRAUMATIC, NORMAL INSPECTION - Eye Exam Eye Exam: EOMI, Normal appearance, PERRL - ENT Exam ENT Exam: Mucous Membranes Moist - Neck Exam Neck Exam: Full ROM - Respiratory Exam Respiratory Exam: Clear to Ausculation Bilateral, NORMAL BREATHING PATTERN - Cardiovascular Exam Cardiovascular Exam: REGULAR RHYTHM, +S1, +S2 - GI/Abdominal Exam GI & Abdominal Exam: Soft, Normal Bowel Sounds Additional comments: LLQ colostomy in place with stool in bag - Extremities Exam Extremities Exam: Normal Capillary Refill, Normal Inspection - Back Exam Additional comments: Stage 2 sacral ulcer with optiform Stage 4 ischial ulcer with wound vac - Neurological Exam Neurological Exam: Alert, Awake, Oriented x3 - Skin Skin Exam: Dry, Warm Assessment and Plan - Assessment and Plan (Free Text) Assessment: 52 M with stage 4 ischial ulcer and possible osteomyelitis, S/p debridement of R ischial ulcer (stage 4) and R gluteal ulcer (stage 2) POD#5. Plan: -Wound vac changed today, next change 11/03 -air mattress, repositioning q2h and off loading -IV antibiotics as per ID -F/u INR; bridge from lovenox to warfarin -Further recommendations per Dr. Azar Smith PGY2
[2017-10-31] MEDS: Dakin's Topical 0.25%-Half Strength (480 ml) TOP SCH (09:35)
[2017-10-31] MEDS: Silver Sulfadiazine 1% Cream (25 gm) TP SCH (09:38)
[2017-10-31] MEDS: Enoxaparin 100 mg Syringe SC SCH ×2 (09:57→22:05)
--- NOTE | 2017-10-31 11:20 | CP.PCM.PN ---
<Giovanny Pruitt - Last Filed: 10/31/17 11:34> Subjective - Date & Time of Evaluation Date of Evaluation: 10/31/17 Time of Evaluation: 11:17 - Subjective Subjective: PGY-[address] Hou. No acute events overnight. Patient did not offer any complaints today. Wound vac functioning well, PICC line in place, colostomy bag in place and functioning well. He denied fevers, chills, bleeding. He is tolerating diet, said he slept well and appeared to be in a good mood. Objective - Vital Signs/Intake and Output Vital Signs (last 24 hours): Temp Pulse Resp BP Pulse Ox 98.4 F 58 L 20 120/74 98 10/31/17 07:48 10/31/17 07:48 10/31/17 07:48 10/31/17 07:48 10/31/17 07:48 Intake and Output: 10/31/17 10/31/17 06:59 18:59 Intake Total 600 Output Total 3000 Balance -2400 - Medications Medications: Current Medications Acetaminophen (Tylenol 325mg Tab) 650 mg PO Q6H PRN PRN Reason: Other Last Admin: 10/31/17 06:22 Dose: 650 mg Baclofen (Lioresal) 20 mg PO BID PRN PRN Reason: Pain, moderate (4-7) Last Admin: 10/31/17 06:23 Dose: 20 mg Docusate Sodium (Colace) 100 mg PO BID [facility] Last Admin: 10/31/17 09:57 Dose: 100 mg Enoxaparin Sodium (Lovenox) 100 mg SC Q12H [facility] PRN Reason: Protocol Last Admin: 10/31/17 09:57 Dose: 100 mg Aztreonam (Azactam 1 Gm) 100 mls @ 100 mls/hr IVPB Q8 [facility] PRN Reason: Protocol Last Admin: 10/31/17 05:44 Dose: 100 mls/hr Ondansetron HCl (Zofran Inj) 4 mg IVP Q4 PRN PRN Reason: Nausea/Vomiting Pantoprazole Sodium (Protonix Ec Tab) 40 mg PO ACB [facility] Last Admin: 10/31/17 06:33 Dose: 40 mg Silver Sulfadiazine (Silvadene 1% 25 Gm) 0 gm TP DAILY [facility] Last Admin: 10/30/17 09:45 Dose: 25 gm Sodium Hypochlorite (Dakins Solution 0.25%) 1 ml TOP DAILY [facility] Last Admin: 10/30/17 09:46 Dose: Not Given Warfarin Sodium (Coumadin) 5 mg PO 1800 [facility] PRN Reason: Protocol - Labs Labs: 10/31/17 05:40 10/31/17 05:40 PT 20.3 SECONDS (9.4-12.5) H 10/31/17 05:40 INR 1.75 10/31/17 05:40 APTT 29.7 Seconds (25.1-36.5) 10/27/17 07:20 - Additional Findings Additional findings: - Head Exam Head Exam: ATRAUMATIC, NORMAL INSPECTION, NORMOCEPHALIC - Eye Exam Eye Exam: EOMI, Normal appearance - ENT Exam ENT Exam: Mucous Membranes Moist, Normal Exam - Respiratory Exam Respiratory Exam: Clear to Ausculation Bilateral, NORMAL BREATHING PATTERN. absent: Rhonchi, Wheezes - Cardiovascular Exam Cardiovascular Exam: REGULAR RHYTHM, +S1, +S2 - GI/Abdominal Exam GI & Abdominal Exam: Soft, nontender, bowel sounds present; colostomy bag present w/ no issue; draining well. No erythema or abnormal drainage appreciated - Extremities Exam Extremities Exam: absent: Normal Inspection - Back Exam Back Exam: absent: NORMAL INSPECTION Additional comments: Wound vac is in place, set to suction; dressing is CDI; no malodor or excessive discharge noted. - Neurological Exam Neurological Exam: Alert, Awake, Oriented x3 - Psychiatric Exam Psychiatric exam: Normal Affect, Normal Mood - Skin Skin Exam: Normal Color, Warm Assessment and Plan - Assessment and Plan (Free Text) Assessment: 52 year old male pertinent history of chronic sacral ulcers, chronic UTI, paraplegia, and previous DVT presented with worsening bed sores. On admission, patient was afebrile with stable vitals, and no other SIRS criteria. Wound culture is now growing enterobacter, pansensitive to cipro, bactrim, ertapenem, gentamicin, merrem, and zosyn; urine culture growing ESBL proteus. 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 - wound culture collected 10/19/17 grew enterobacter aerogenes - C/w aztreonam IV - Antibiotic therapy Started 10/20; Will require 5 weeks of total therapy. 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 Wound vac changed 10/30, next change 11/03 - ID on board, Dr Valadez - also with right gluteal Stage 2 ulcer with optiform - C/w baclofen - C/w air mattress, turn pt q2h and off loading - Tylenol 650mg po q6h prn for pain - Zofran 4mg ivp q6h prn for nausea/vomiting - Further wound management recs as per wound care, surgery, and ID UTI - Urine culture collected 10/19/17 growing ESBL+ proteus - Urine growing ESBL+ Proteus - Gentamicin given for 3 days and now discontinued - ID on board, Dr Valadez Subtherapeutic INR - C/w Lovenox 100 BID with bridge to warfarin - INR today 1.75, we will reduce warfarin dose today to 5mg to avoid supratherapeutic INR - DC Lovenox once INR is therapeutic Ileostomy, chronic - Hx since Jan 2017 as per patient - Colostomy bag functioning well - Surgery consulted, f/u recs Hx paraplegia/immobility - PT and OT screen Hx IVDA - Urine drug screen negative GI/DVT ppx: Protonix 40mg po qd, currently on lovenox with bridge to warfarin Disposition plan: Patient is s/p debridement POD6 today; He will require [facility] IV antibiotic due to significant history of failed therapy. <Miky Hou - Last Filed: 10/31/17 12:20> Objective - Vital Signs/Intake and Output Vital Signs (last 24 hours): Temp Pulse Resp BP Pulse Ox 98.4 F 58 L 20 120/74 98 10/31/17 07:48 10/31/17 07:48 10/31/17 07:48 10/31/17 07:48 10/31/17 07:48 Intake and Output: 10/31/17 10/31/17 06:59 18:59 Intake Total 600 Output Total 3000 Balance -2400 - Medications Medications: Current Medications Acetaminophen (Tylenol 325mg Tab) 650 mg PO Q6H PRN PRN Reason: Other Last Admin: 10/31/17 06:22 Dose: 650 mg Baclofen (Lioresal) 20 mg PO BID PRN PRN Reason: Pain, moderate (4-7) Last Admin: 10/31/17 06:23 Dose: 20 mg Docusate Sodium (Colace) 100 mg PO BID [facility] Last Admin: 10/31/17 09:57 Dose: 100 mg Enoxaparin Sodium (Lovenox) 100 mg SC Q12H [facility] PRN Reason: Protocol Last Admin: 10/31/17 09:57 Dose: 100 mg Aztreonam (Azactam 1 Gm) 100 mls @ 100 mls/hr IVPB Q8 [facility] PRN Reason: Protocol Last Admin: 10/31/17 05:44 Dose: 100 mls/hr Ondansetron HCl (Zofran Inj) 4 mg IVP Q4 PRN PRN Reason: Nausea/Vomiting Pantoprazole Sodium (Protonix Ec Tab) 40 mg PO ACB [facility] Last Admin: 10/31/17 06:33 Dose: 40 mg Silver Sulfadiazine (Silvadene 1% 25 Gm) 0 gm TP DAILY [facility] Last Admin: 10/30/17 09:45 Dose: 25 gm Sodium Hypochlorite (Dakins Solution 0.25%) 1 ml TOP DAILY [facility] Last Admin: 10/30/17 09:46 Dose: Not Given Warfarin Sodium (Coumadin) 5 mg PO 1800 [facility] PRN Reason: Protocol - Labs Labs: 10/31/17 05:40 10/31/17 05:40 PT 20.3 SECONDS (9.4-12.5) H 10/31/17 05:40 INR 1.75 10/31/17 05:40 APTT 29.7 Seconds (25.1-36.5) 10/27/17 07:20 Attending/Attestation - Attestation I have personally seen and examined this patient.: Yes I have fully participated in the care of the patient.: Yes I have reviewed all pertinent clinical information, including history, physical exam and plan: Yes Notes (Text): 10/31/17 12:18 52 year old male with past medical history of paraplegia, epidural abscess, s/p colostomy, and sacral ulcers who is admitted for infected decubitus sacral ulcer. Bone scan was suggestive of osteomyelitis of coccyx bone. Patient is s/p OR debridement POD #5. He is also s/p wound vac. He is s/p picc line. Wound culture is growing enterobacter aerogenes. Ucx is growing proteus mirabilis. Continue with iv antibiotics as per ID and wound care as per surgery. Patient is on lovenox/coumadin for history of DVT. INR is slowly coming up. Miky Hou MD Hospitalist.
--- NOTE | 2017-10-31 17:33 | CP.PCM.PN ---
Subjective - Date & Time of Evaluation Date of Evaluation: 10/31/17 Time of Evaluation: 16:00 - Subjective Subjective: Infectious Disease Follow Up: October 31, 2017 52 yo male with extensive medical history including paraplegia, IVDA, T2 epidural abscess, ileostomy, and chronic sacral decubiti presenting with worsening sacral decubiti ulcerations. He states that he has discharge and malodor at the ulceration sites. The patient is bedbound. Bone scan done. Results showing possible osteomyelitis of the right ischium. For debridement of the sacral decubiti by Dr. Askew... done on Thursday. No definitive signs of osteomyelitis. ESBL + Proteus in urine cultures. No renal disease. No new issues at this time. PICC placed. Wound vac in place. Patient comfortable. Objective - Vital Signs/Intake and Output Vital Signs (last 24 hours): Temp Pulse Resp BP Pulse Ox 98.1 F 68 18 120/72 99 10/31/17 16:05 10/31/17 16:05 10/31/17 16:05 10/31/17 16:05 10/31/17 16:05 Intake and Output: 10/31/17 10/31/17 06:59 18:59 Intake Total 600 Output Total 3000 Balance -2400 - Medications Medications: Current Medications Acetaminophen (Tylenol 325mg Tab) 650 mg PO Q6H PRN PRN Reason: Other Last Admin: 10/31/17 14:30 Dose: 650 mg Baclofen (Lioresal) 20 mg PO BID PRN PRN Reason: Pain, moderate (4-7) Last Admin: 10/31/17 06:23 Dose: 20 mg Docusate Sodium (Colace) 100 mg PO BID [facility] Last Admin: 10/31/17 09:57 Dose: 100 mg Enoxaparin Sodium (Lovenox) 100 mg SC Q12H [facility] PRN Reason: Protocol Last Admin: 10/31/17 09:57 Dose: 100 mg Aztreonam (Azactam 1 Gm) 100 mls @ 100 mls/hr IVPB Q8 [facility] PRN Reason: Protocol Last Admin: 10/31/17 14:18 Dose: 100 mls/hr Ondansetron HCl (Zofran Inj) 4 mg IVP Q4 PRN PRN Reason: Nausea/Vomiting Pantoprazole Sodium (Protonix Ec Tab) 40 mg PO ACB [facility] Last Admin: 10/31/17 06:33 Dose: 40 mg Silver Sulfadiazine (Silvadene 1% 25 Gm) 0 gm TP DAILY [facility] Last Admin: 10/30/17 09:45 Dose: 25 gm Sodium Hypochlorite (Dakins Solution 0.25%) 1 ml TOP DAILY [facility] Last Admin: 10/30/17 09:46 Dose: Not Given Warfarin Sodium (Coumadin) 5 mg PO 1800 [facility] PRN Reason: Protocol - Labs Labs: 10/31/17 05:40 10/31/17 05:40 PT 20.3 SECONDS (9.4-12.5) H 10/31/17 05:40 INR 1.75 10/31/17 05:40 APTT 29.7 Seconds (25.1-36.5) 10/27/17 07:20 - Constitutional Appears: Non-toxic, No Acute Distress, Chronically Ill - Head Exam Head Exam: ATRAUMATIC, NORMOCEPHALIC - Eye Exam Eye Exam: EOMI, PERRL Pupil Exam: NORMAL ACCOMODATION, PERRL - ENT Exam ENT Exam: Mucous Membranes Moist, Normal External Ear Exam, TM's Normal Bilaterally - Neck Exam Neck Exam: Full ROM, Normal Inspection - Respiratory Exam Respiratory Exam: Clear to Ausculation Bilateral, NORMAL BREATHING PATTERN. absent: Rales, Rhonchi, Wheezes - Cardiovascular Exam Cardiovascular Exam: REGULAR RHYTHM, RRR, +S1, +S2 - GI/Abdominal Exam GI & Abdominal Exam: Soft, Normal Bowel Sounds. absent: Distended, Tenderness Additional comments: colostomy bag draining well - Extremities Exam Additional comments: paraplegic, contracted extremities all four limbs. Cachetic. - Neurological Exam Neurological Exam: Alert, Awake, CN II-XII Intact, Oriented x3 - Psychiatric Exam Psychiatric exam: Normal Affect, Normal Mood - Skin Additional comments: pt has a stage IV sacral ulcer over his right ischium s/p debridement. pt has a stage I ulver on his left and right buttocks Assessment and Plan - Assessment and Plan (Free Text) Assessment: 52 yo male with extensive sacral decubiti stage IV in additional to other medical issues. Patient with known rash with PCN. Unclear why Zosyn was given in PCN allergy. 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 For now would start with Aztreonam and obtain wound cultures (hopefully done before any antibiotics were started.). Supportive and wound care. Surgery evaluation for potential debridement. Can extend coverage if MRSA is found. There may need to be a desensitization to carbapenems if resistant gram negatives are found in cultures. Gram negative rods in two cultures. Results of the bone scan show questionable osteomyelitis findings of the right ischium. Sacral wound with Enterobacter. May need 4 to 6 weeks of IV antibiotics for questionable osteomyelitis. OR debridement on Thursday10/26/2017. ESBL+ Proteus in urine cultures. Gentamicin IV started for treatment of 3 days. Enterobacter in wound cultures. Currently on Aztreonam for antibiotic coverage with the short course of Gentamicin (Day 3... completing.). Gentamicin completed. Wound vac placed. Supportive care. Patient appears comfortable. Thank you for allowing me to participate in the care of the patient, we will follow with you.
[2017-11-01] MEDS: Aztreonam 1 Gm in NS 100mL 100 ML IVPB SCH ×3 (06:07→21:24)
[2017-11-01 06:28] LABS: BASO # 0.02 K/mm3 (0.0-2.0); BASO % 0.3 % (0.0-3.0); EOS # 0.1 (0.0-0.7); EOS % 1.8 % (1.5-5.0); GRAN # 3.68 (1.4-6.5); HEMOGLOBIN 11.7 g/dL (14.0-18.0); LYMPH # 1.8 (1.2-3.4); LYMPH % 29.4 % (22.0-35.0); MEAN CELL VOLUME 79.9 fl (80.0-105.0); MEAN CORPUSCULAR HEMOGLOBIN 25.9 pg (25.0-35.0); MEAN CORPUSCULAR HGB CONC 32.4 g/dl (31.0-37.0); MEAN PLATELET VOLUME 10.8 fl (7.0-11.0); MONO # 0.5 (0.1-0.6); MONO % 8.5 % (1.0-6.0); RBC 4.52 10^6/uL (3.5-6.1); RED CELL DISTRIBUTION WIDTH 16.6 % (11.5-14.5); WHITE BLOOD COUNT 6.1 10^3/ul (4.5-11.0)
[2017-11-01 06:47] LABS: BLOOD UREA NITROGEN 19 mg/dL (7-21); CALCIUM 9.5 mg/dL (8.4-10.5); GFR AFRICAN-AMERICAN > 60; GFR NON-AFRICAN AMERICAN > 60
[2017-11-01 06:53] LABS: INR 2.11; PROTHROMBIN TIME 24.6 SECONDS (9.4-12.5)
--- NOTE | 2017-11-01 07:18 | CP.PCM.PN ---
Subjective - Date & Time of Evaluation Date of Evaluation: 11/01/17 Time of Evaluation: 07:15 - Subjective Subjective: General Surgery Note for Dr. Askew Patient seen and examined at bedside. No acute events reported overnight. Wound vac changed yesterday, no leaks today. Patient has no complaints. Denies chest pain or SOB. Reports functioning stoma. He is requiring senior living IV antibiotics. Objective - Vital Signs/Intake and Output Vital Signs (last 24 hours): Temp Pulse Resp BP Pulse Ox 98.1 F 68 18 120/72 99 10/31/17 16:05 10/31/17 16:05 10/31/17 16:05 10/31/17 16:05 10/31/17 16:05 Intake and Output: 11/01/17 11/01/17 06:59 18:59 Intake Total 1920 Output Total 2000 Balance -80 - Medications Medications: Current Medications Acetaminophen (Tylenol 325mg Tab) 650 mg PO Q6H PRN PRN Reason: Other Last Admin: 11/01/17 06:06 Dose: 650 mg Baclofen (Lioresal) 20 mg PO BID PRN PRN Reason: Pain, moderate (4-7) Last Admin: 11/01/17 06:07 Dose: 20 mg Docusate Sodium (Colace) 100 mg PO BID [facility] Last Admin: 10/31/17 17:20 Dose: Not Given Enoxaparin Sodium (Lovenox) 100 mg SC Q12H [facility] PRN Reason: Protocol Last Admin: 10/31/17 22:05 Dose: 100 mg Aztreonam (Azactam 1 Gm) 100 mls @ 100 mls/hr IVPB Q8 [facility] PRN Reason: Protocol Last Admin: 11/01/17 06:07 Dose: 100 mls/hr Ondansetron HCl (Zofran Inj) 4 mg IVP Q4 PRN PRN Reason: Nausea/Vomiting Pantoprazole Sodium (Protonix Ec Tab) 40 mg PO ACB [facility] Last Admin: 10/31/17 06:33 Dose: 40 mg Silver Sulfadiazine (Silvadene 1% 25 Gm) 0 gm TP DAILY [facility] Last Admin: 10/30/17 09:45 Dose: 25 gm Sodium Hypochlorite (Dakins Solution 0.25%) 1 ml TOP DAILY [facility] Last Admin: 10/30/17 09:46 Dose: Not Given Warfarin Sodium (Coumadin) 5 mg PO 1800 [facility] PRN Reason: Protocol Last Admin: 10/31/17 17:20 Dose: 5 mg - Labs Labs: 11/01/17 06:15 11/01/17 06:15 PT 24.6 SECONDS (9.4-12.5) H 11/01/17 06:15 INR 2.11 11/01/17 06:15 APTT 29.7 Seconds (25.1-36.5) 10/27/17 07:20 - Constitutional Appears: Non-toxic, No Acute Distress - Head Exam Head Exam: ATRAUMATIC, NORMAL INSPECTION - Eye Exam Eye Exam: EOMI, Normal appearance, PERRL - ENT Exam ENT Exam: Mucous Membranes Moist - Neck Exam Neck Exam: Full ROM - Respiratory Exam Respiratory Exam: Clear to Ausculation Bilateral, NORMAL BREATHING PATTERN - Cardiovascular Exam Cardiovascular Exam: REGULAR RHYTHM, +S1, +S2 - GI/Abdominal Exam GI & Abdominal Exam: Soft, Normal Bowel Sounds Additional comments: LLQ colostomy in place with stool in bag - Extremities Exam Extremities Exam: Normal Capillary Refill, Normal Inspection - Back Exam Additional comments: Stage 2 sacral ulcer with optiform Stage 4 ischial ulcer with wound vac - Neurological Exam Neurological Exam: Alert, Awake, Oriented x3 - Skin Skin Exam: Dry, Warm Assessment and Plan - Assessment and Plan (Free Text) Assessment: 52 M with stage 4 ischial ulcer and possible osteomyelitis, S/p debridement of R ischial ulcer (stage 4) and R gluteal ulcer (stage 2) POD#6 Plan: -Wound vac change 11/03 -air mattress, repositioning q2h and off loading -IV antibiotics as per ID -F/u INR; bridge from lovenox to warfarin -Physical therapy ordered -Further recommendations per Dr. Azar Shah PGY3
[2017-11-01] MEDS: Dakin's Topical 0.25%-Half Strength (480 ml) TOP SCH (09:37)
[2017-11-01] MEDS: Silver Sulfadiazine 1% Cream (25 gm) TP SCH (09:38)
[2017-11-01] MEDS: Pantoprazole 40 mg EC Tab PO SCH (09:39)
--- NOTE | 2017-11-01 10:47 | CP.PCM.PN ---
<Giovanny Pruitt - Last Filed: 11/01/17 10:42> Subjective - Date & Time of Evaluation Date of Evaluation: 11/01/17 Time of Evaluation: 10:42 - Subjective Subjective: PGY-[address] Hou. No acute events overnight. Patient did not offer any complaints today. Wound vac functioning well, PICC line in place, colostomy bag in place and functioning well. He denied fevers, chills, bleeding. He is tolerating diet, said he slept well and appeared to be in a good mood. INR therapeutic now, will d/c lovenox. Objective - Vital Signs/Intake and Output Vital Signs (last 24 hours): Temp Pulse Resp BP Pulse Ox 98.3 F 58 L 20 120/77 98 11/01/17 08:49 11/01/17 08:49 11/01/17 08:49 11/01/17 08:49 11/01/17 08:49 Intake and Output: 11/01/17 11/01/17 06:59 18:59 Intake Total 1920 Output Total 2000 Balance -80 - Medications Medications: Current Medications Acetaminophen (Tylenol 325mg Tab) 650 mg PO Q6H PRN PRN Reason: Other Last Admin: 11/01/17 06:06 Dose: 650 mg Baclofen (Lioresal) 20 mg PO BID PRN PRN Reason: Pain, moderate (4-7) Last Admin: 11/01/17 06:07 Dose: 20 mg Docusate Sodium (Colace) 100 mg PO BID [facility] Last Admin: 11/01/17 09:39 Dose: 100 mg Aztreonam (Azactam 1 Gm) 100 mls @ 100 mls/hr IVPB Q8 [facility] PRN Reason: Protocol Last Admin: 11/01/17 06:07 Dose: 100 mls/hr Ondansetron HCl (Zofran Inj) 4 mg IVP Q4 PRN PRN Reason: Nausea/Vomiting Pantoprazole Sodium (Protonix Ec Tab) 40 mg PO ACB [facility] Last Admin: 11/01/17 09:39 Dose: 40 mg Silver Sulfadiazine (Silvadene 1% 25 Gm) 0 gm TP DAILY [facility] Last Admin: 11/01/17 09:38 Dose: 1 gm Sodium Hypochlorite (Dakins Solution 0.25%) 1 ml TOP DAILY [facility] Last Admin: 11/01/17 09:37 Dose: Not Given Warfarin Sodium (Coumadin) 5 mg PO 1800 [facility] PRN Reason: Protocol Last Admin: 10/31/17 17:20 Dose: 5 mg - Labs Labs: 11/01/17 06:15 11/01/17 06:15 PT 24.6 SECONDS (9.4-12.5) H 11/01/17 06:15 INR 2.11 11/01/17 06:15 APTT 29.7 Seconds (25.1-36.5) 10/27/17 07:20 - Additional Findings Additional findings: - Head Exam Head Exam: ATRAUMATIC, NORMAL INSPECTION, NORMOCEPHALIC - Eye Exam Eye Exam: EOMI, Normal appearance - ENT Exam ENT Exam: Mucous Membranes Moist, Normal Exam - Respiratory Exam Respiratory Exam: Clear to Ausculation Bilateral, NORMAL BREATHING PATTERN. absent: Rhonchi, Wheezes - Cardiovascular Exam Cardiovascular Exam: REGULAR RHYTHM, +S1, +S2 - GI/Abdominal Exam GI & Abdominal Exam: Soft, nontender, bowel sounds present; colostomy bag present w/ no issue; draining well. No erythema or abnormal drainage appreciated - Extremities Exam Extremities Exam: absent: Normal Inspection - Back Exam Back Exam: absent: NORMAL INSPECTION Additional comments: Wound vac is in place, set to suction; dressing is CDI; no malodor or excessive discharge noted. - Neurological Exam Neurological Exam: Alert, Awake, Oriented x3 - Psychiatric Exam Psychiatric exam: Normal Affect, Normal Mood - Skin Skin Exam: Normal Color, Warm Assessment and Plan - Assessment and Plan (Free Text) Assessment: 52 year old male pertinent history of chronic sacral ulcers, chronic UTI, paraplegia, and previous DVT presented with worsening bed sores. On admission, patient was afebrile with stable vitals, and no other SIRS criteria. Wound culture is now growing enterobacter, pansensitive to cipro, bactrim, ertapenem, gentamicin, merrem, and zosyn; urine culture growing ESBL proteus. 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 - wound culture collected 10/19/17 grew enterobacter aerogenes - C/w aztreonam IV - Antibiotic therapy Started 10/20; Will require 5 weeks of total therapy. PICC line in place * patient with allergies to multiple abx including ceftriaxone, cephalosporins ( rash), vancomycin (red man syndrome) - s/p debridement by surgery pod #7 * C/w local wound care, and wound vac management as per surgery. Wound vac changed 10/30, next change 11/03 - ID on board, Dr Valadez - also with right gluteal Stage 2 ulcer with optiform - C/w baclofen - C/w air mattress, turn pt q2h and off loading - Tylenol 650mg po q6h prn for pain - Zofran 4mg ivp q6h prn for nausea/vomiting - Further wound management recs as per wound care, surgery, and ID UTI - Urine culture collected 10/19/17 growing ESBL+ proteus. Gentamicin given for 3 days and now discontinued. * on contact precautions - Repeat Urine culture ordered. Will follow-up. - ID on board, Dr Valadez Hx of DVT/PE -therapeutic INR, successfully bridged to warfarin, discontinued lovenox today -continue warfarin 5mg po qd and maintain INR 2-3 Ileostomy, chronic - Hx since Jan 2017 as per patient - Colostomy bag functioning well - Surgery consulted, f/u recs Hx paraplegia/immobility - PT and OT screen Hx IVDA - Urine drug screen negative GI/DVT ppx: Protonix 40mg po qd, currently on lovenox with bridge to warfarin Disposition plan: Patient is s/p debridement POD7 today; He will require termite helper IV antibiotic due to significant history of failed therapy. <Miky Hou - Last Filed: 11/01/17 13:14> Objective - Vital Signs/Intake and Output Vital Signs (last 24 hours): Temp Pulse Resp BP Pulse Ox 98.3 F 58 L 20 120/77 98 11/01/17 08:49 11/01/17 08:49 11/01/17 08:49 11/01/17 08:49 11/01/17 08:49 Intake and Output: 11/01/17 11/01/17 06:59 18:59 Intake Total 1920 Output Total 1999 Balance -80 - Medications Medications: Current Medications Acetaminophen (Tylenol 325mg Tab) 650 mg PO Q6H PRN PRN Reason: Other Last Admin: 11/01/17 06:06 Dose: 650 mg Baclofen (Lioresal) 20 mg PO BID PRN PRN Reason: Pain, moderate (4-7) Last Admin: 11/01/17 06:07 Dose: 20 mg Docusate Sodium (Colace) 100 mg PO BID [facility] Last Admin: 11/01/17 09:39 Dose: 100 mg Aztreonam (Azactam 1 Gm) 100 mls @ 100 mls/hr IVPB Q8 [facility] PRN Reason: Protocol Last Admin: 11/01/17 06:07 Dose: 100 mls/hr Ondansetron HCl (Zofran Inj) 4 mg IVP Q4 PRN PRN Reason: Nausea/Vomiting Pantoprazole Sodium (Protonix Ec Tab) 40 mg PO ACB [facility] Last Admin: 11/01/17 09:39 Dose: 40 mg Silver Sulfadiazine (Silvadene 1% 25 Gm) 0 gm TP DAILY [facility] Last Admin: 11/01/17 09:38 Dose: 1 gm Sodium Hypochlorite (Dakins Solution 0.25%) 1 ml TOP DAILY [facility] Last Admin: 11/01/17 09:37 Dose: Not Given Warfarin Sodium (Coumadin) 5 mg PO 1800 [facility] PRN Reason: Protocol Last Admin: 10/31/17 17:20 Dose: 5 mg - Labs Labs: 11/01/17 06:15 11/01/17 06:15 PT 24.6 SECONDS (9.4-12.5) H 11/01/17 06:15 INR 2.11 11/01/17 06:15 APTT 29.7 Seconds (25.1-36.5) 10/27/17 07:20 Attending/Attestation - Attestation I have personally seen and examined this patient.: Yes I have fully participated in the care of the patient.: Yes I have reviewed all pertinent clinical information, including history, physical exam and plan: Yes Notes (Text): 11/01/17 13:13 52 year old male with past medical history of paraplegia, epidural abscess, s/p colostomy, and sacral ulcers who is admitted for infected decubitus sacral ulcer. Bone scan was suggestive of osteomyelitis of coccyx bone. Patient is s/p OR debridement POD #6. He is also s/p wound vac. He is s/p picc line. Wound culture is growing enterobacter aerogenes. Ucx is growing proteus mirabilis. Continue with iv antibiotics as per ID and wound care as per surgery. Patient is on coumadin for history of DVT. INR is now therapeutic so lovenox was discontinued. Miky Hou MD Hospitalist.
--- NOTE | 2017-11-01 17:34 | CP.PCM.PN ---
Subjective - Date & Time of Evaluation Date of Evaluation: 11/01/17 Time of Evaluation: 16:15 - Subjective Subjective: Infectious Disease Follow Up: November 01, 2017 52 yo male with extensive medical history including paraplegia, IVDA, T2 epidural abscess, ileostomy, and chronic sacral decubiti presenting with worsening sacral decubiti ulcerations. He states that he has discharge and malodor at the ulceration sites. The patient is bedbound. Bone scan done. Results showing possible osteomyelitis of the right ischium. For debridement of the sacral decubiti by Dr. Askew... done on Thursday. No definitive signs of osteomyelitis. ESBL + Proteus in urine cultures. No renal disease. No new issues at this time. PICC placed. Wound vac in place. Patient comfortable. Patient in very good mood. Objective - Vital Signs/Intake and Output Vital Signs (last 24 hours): Temp Pulse Resp BP Pulse Ox 97.8 F 74 18 129/76 100 11/01/17 15:09 11/01/17 15:09 11/01/17 15:09 11/01/17 15:09 11/01/17 15:09 Intake and Output: 11/01/17 11/01/17 06:59 18:59 Intake Total 1920 Output Total 2000 Balance -80 - Medications Medications: Current Medications Acetaminophen (Tylenol 325mg Tab) 650 mg PO Q6H PRN PRN Reason: Other Last Admin: 11/01/17 15:35 Dose: 650 mg Baclofen (Lioresal) 20 mg PO BID PRN PRN Reason: Pain, moderate (4-7) Last Admin: 11/01/17 15:49 Dose: 20 mg Docusate Sodium (Colace) 100 mg PO BID [facility] Last Admin: 11/01/17 09:39 Dose: 100 mg Aztreonam (Azactam 1 Gm) 100 mls @ 100 mls/hr IVPB Q8 DONAL PRN Reason: Protocol Last Admin: 11/01/17 14:32 Dose: 100 mls/hr Ondansetron HCl (Zofran Inj) 4 mg IVP Q4 PRN PRN Reason: Nausea/Vomiting Pantoprazole Sodium (Protonix Ec Tab) 40 mg PO ACB [facility] Last Admin: 11/01/17 09:39 Dose: 40 mg Silver Sulfadiazine (Silvadene 1% 25 Gm) 0 gm TP DAILY [facility] Last Admin: 11/01/17 09:38 Dose: 1 gm Sodium Hypochlorite (Dakins Solution 0.25%) 1 ml TOP DAILY [facility] Last Admin: 11/01/17 09:37 Dose: Not Given Warfarin Sodium (Coumadin) 5 mg PO 1800 DONAL PRN Reason: Protocol Last Admin: 10/31/17 17:20 Dose: 5 mg - Labs Labs: 11/01/17 06:15 11/01/17 06:15 PT 24.6 SECONDS (9.4-12.5) H 11/01/17 06:15 INR 2.11 11/01/17 06:15 APTT 29.7 Seconds (25.1-36.5) 10/27/17 07:20 - Constitutional Appears: Non-toxic, No Acute Distress, Chronically Ill - Head Exam Head Exam: ATRAUMATIC, NORMOCEPHALIC - Eye Exam Eye Exam: EOMI, PERRL Pupil Exam: NORMAL ACCOMODATION, PERRL - ENT Exam ENT Exam: Mucous Membranes Moist, Normal External Ear Exam, TM's Normal Bilaterally - Neck Exam Neck Exam: Full ROM, Normal Inspection - Respiratory Exam Respiratory Exam: Clear to Ausculation Bilateral, NORMAL BREATHING PATTERN. absent: Rales, Rhonchi, Wheezes - Cardiovascular Exam Cardiovascular Exam: REGULAR RHYTHM, RRR, +S1, +S2 - GI/Abdominal Exam GI & Abdominal Exam: Soft, Normal Bowel Sounds. absent: Distended, Tenderness Additional comments: colostomy bag draining well - Extremities Exam Additional comments: paraplegic, contracted extremities all four limbs. - Neurological Exam Neurological Exam: Alert, Awake, CN II-XII Intact, Oriented x3 - Psychiatric Exam Psychiatric exam: Normal Affect, Normal Mood - Skin Additional comments: pt has a stage IV sacral ulcer over his right ischium s/p debridement. Wound vac in place. pt has a stage I ulver on his left and right buttocks Assessment and Plan - Assessment and Plan (Free Text) Assessment: 52 yo male with extensive sacral decubiti stage IV in additional to other medical issues. Patient with known rash with PCN. Unclear why Zosyn was given in PCN allergy. 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 For now would start with Aztreonam and obtain wound cultures (hopefully done before any antibiotics were started.). Supportive and wound care. Surgery evaluation for potential debridement. Can extend coverage if MRSA is found. There may need to be a desensitization to carbapenems if resistant gram negatives are found in cultures. Gram negative rods in two cultures. Results of the bone scan show questionable osteomyelitis findings of the right ischium. Sacral wound with Enterobacter. May need 4 to 6 weeks of IV antibiotics for questionable osteomyelitis. OR debridement on Thursday10/26/2017. ESBL+ Proteus in urine cultures. Gentamicin IV started for treatment of 3 days. Enterobacter in wound cultures. Completed Aztreonam for antibiotic coverage with the short course of Gentamicin (Day 3... completed.). Gentamicin completed. Wound vac placed. Supportive care. Patient appears comfortable. Patient in good mood. Thank you for allowing me to participate in the care of the patient, we will follow with you.
[2017-11-02] MEDS: Aztreonam 1 Gm in NS 100mL 100 ML IVPB SCH ×3 (05:54→22:35)
--- NOTE | 2017-11-02 06:21 | CP.PCM.PN ---
<Hank Tee - Last Filed: 11/02/17 15:36> Subjective - Date & Time of Evaluation Date of Evaluation: 11/02/17 Time of Evaluation: 06:12 - Subjective Subjective: Hank Tee DO PGY1 Internal Medicine [facility] - Hospital progress note Patient seen and evaluated at bedside this AM; no complaints Afebrile, no SOB, no Cough, Abd pain, N/V. Colostomy emptying appropriately; wound vac in place. 12 system ROS otherwise negative. Objective - Vital Signs/Intake and Output Vital Signs (last 24 hours): Temp Pulse Resp BP Pulse Ox 97.8 F 74 18 129/76 100 11/01/17 15:09 11/01/17 15:09 11/01/17 15:09 11/01/17 15:09 11/01/17 15:09 Intake and Output: 11/01/17 11/02/17 18:59 06:59 Intake Total 2100 Output Total 4350 Balance -2250 - Medications Medications: Current Medications Acetaminophen (Tylenol 325mg Tab) 650 mg PO Q6H PRN PRN Reason: Other Last Admin: 11/01/17 21:25 Dose: 650 mg Baclofen (Lioresal) 20 mg PO BID PRN PRN Reason: Pain, moderate (4-7) Last Admin: 11/01/17 21:25 Dose: 20 mg Docusate Sodium (Colace) 100 mg PO BID [facility] Last Admin: 11/01/17 17:23 Dose: Not Given Aztreonam (Azactam 1 Gm) 100 mls @ 100 mls/hr IVPB Q8 DONAL PRN Reason: Protocol Last Admin: 11/01/17 21:24 Dose: 100 mls/hr Ondansetron HCl (Zofran Inj) 4 mg IVP Q4 PRN PRN Reason: Nausea/Vomiting Pantoprazole Sodium (Protonix Ec Tab) 40 mg PO ACB [facility] Last Admin: 11/01/17 09:39 Dose: 40 mg Silver Sulfadiazine (Silvadene 1% 25 Gm) 0 gm TP DAILY [facility] Last Admin: 11/01/17 09:38 Dose: 1 gm Sodium Hypochlorite (Dakins Solution 0.25%) 1 ml TOP DAILY [facility] Last Admin: 11/01/17 09:37 Dose: Not Given Warfarin Sodium (Coumadin) 5 mg PO 1800 DONAL PRN Reason: Protocol Last Admin: 11/01/17 17:22 Dose: 5 mg - Labs Labs: 11/01/17 06:15 11/01/17 06:15 PT 24.6 SECONDS (9.4-12.5) H 11/01/17 06:15 INR 2.11 11/01/17 06:15 APTT 29.7 Seconds (25.1-36.5) 10/27/17 07:20 Physical Exam - Head Exam Head Exam: ATRAUMATIC, NORMAL INSPECTION, NORMOCEPHALIC - Eye Exam Eye Exam: EOMI, Normal appearance - ENT Exam ENT Exam: Mucous Membranes Moist, Normal Exam - Respiratory Exam Respiratory Exam: Clear to Ausculation Bilateral, NORMAL BREATHING PATTERN. absent: Rhonchi, Wheezes - Cardiovascular Exam Cardiovascular Exam: REGULAR RHYTHM, +S1, +S2 - GI/Abdominal Exam GI & Abdominal Exam: Soft, nontender, bowel sounds present; colostomy bag present w/ no issue; draining well. No erythema or abnormal drainage appreciated - Extremities Exam Extremities Exam: absent: Normal Inspection - Back Exam Back Exam: absent: NORMAL INSPECTION Additional comments: Wound vac is in place, set to suction; dressing is CDI; no malodor or excessive discharge noted. - Neurological Exam Neurological Exam: Alert, Awake, Oriented x3 - Psychiatric Exam Psychiatric exam: Normal Affect, Normal Mood - Skin Skin Exam: Normal Color, Warm Assessment and Plan - Assessment and Plan (Free Text) Assessment: 52 year old male pertinent history of chronic sacral ulcers, chronic UTI, paraplegia, and previous DVT presented with worsening bed sores. On admission, patient was afebrile with stable vitals, and no other SIRS criteria. Wound culture is now growing enterobacter, pansensitive to cipro, bactrim, ertapenem, gentamicin, merrem, and zosyn; urine culture growing ESBL proteus. 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 - wound culture collected 10/19/17 grew enterobacter aerogenes; Bone scan concerning for Osteomyelitis - C/w aztreonam IV - Antibiotic therapy Started 10/20; Will require 5 weeks of total therapy. PICC line in place * patient with allergies to multiple abx including ceftriaxone, cephalosporins ( rash), vancomycin (red man syndrome) - s/p debridement by surgery pod #8 * C/w local wound care, and wound vac management as per surgery. Wound vac changed 10/30, next change 11/03 * Will follow up with surgery regarding plans moving forward post wound vac - ID on board, Dr Valadez - also with right gluteal Stage 2 ulcer with optiform - C/w baclofen - C/w air mattress, turn pt q2h and off loading - Tylenol 650mg po q6h prn for pain - Zofran 4mg ivp q6h prn for nausea/vomiting - Further wound management recs as per wound care, surgery, and ID UTI - Resolved - Urine culture collected 10/19/17 growing ESBL+ proteus. Gentamicin given for 3 days and now discontinued. * on contact precautions - Repeat Urine culture ordered. Will follow-up. - ID on board, Dr Valadez Hx of DVT/PE -therapeutic INR, 2.11 today -continue warfarin 5mg po qd and maintain INR 2-3 Ileostomy, chronic - Hx since Jan 2017 as per patient - Colostomy bag functioning well - Surgery consulted, f/u recs Hx paraplegia/immobility - PT and OT screen Hx IVDA - Urine drug screen negative GI/DVT ppx: Protonix 40mg po qd, Warfarin as above Disposition plan: Patient is s/p debridement POD8 today; He will require care home IV antibiotic due to significant history of failed therapy. Patient seen, examined, and case discussed at length w/ attending physician Dr. Edgardo Tee DO PGY1 Internal Medicine [employer] [facility] - Pager [phone] <Jarrod Reynoso - Last Filed: 11/03/17 14:57> Objective - Vital Signs/Intake and Output Vital Signs (last 24 hours): Temp Pulse Resp BP Pulse Ox 97.1 F L 63 20 119/69 98 11/03/17 06:00 11/03/17 06:00 11/03/17 06:00 11/03/17 06:00 11/03/17 06:00 Intake and Output: 11/03/17 11/03/17 06:59 18:59 Intake Total 300 Output Total 600 Balance -300 - Medications Medications: Current Medications Acetaminophen (Tylenol 325mg Tab) 650 mg PO Q6H PRN PRN Reason: Other Last Admin: 11/03/17 11:31 Dose: 650 mg Baclofen (Lioresal) 20 mg PO BID PRN PRN Reason: Pain, moderate (4-7) Last Admin: 11/03/17 06:04 Dose: 20 mg Docusate Sodium (Colace) 100 mg PO BID [facility] Last Admin: 11/03/17 09:33 Dose: Not Given Aztreonam (Azactam 1 Gm) 100 mls @ 100 mls/hr IVPB Q8 DONAL PRN Reason: Protocol Last Admin: 11/03/17 06:01 Dose: 100 mls/hr Ondansetron HCl (Zofran Inj) 4 mg IVP Q4 PRN PRN Reason: Nausea/Vomiting Pantoprazole Sodium (Protonix Ec Tab) 40 mg PO ACB [facility] Last Admin: 11/02/17 08:08 Dose: 40 mg Silver Sulfadiazine (Silvadene 1% 25 Gm) 0 gm TP DAILY [facility] Last Admin: 11/03/17 12:08 Dose: 25 gm Sodium Hypochlorite (Dakins Solution 0.25%) 1 ml TOP DAILY [facility] Last Admin: 11/03/17 09:32 Dose: Not Given Warfarin Sodium (Coumadin) 6 mg PO 1800 DONAL PRN Reason: Protocol - Labs Labs: 11/03/17 06:20 11/02/17 07:00 PT 22.9 SECONDS (9.4-12.5) H 11/02/17 07:00 INR 1.96 11/02/17 07:00 APTT 29.7 Seconds (25.1-36.5) 10/27/17 07:20 Attending/Attestation - Attestation I have personally seen and examined this patient.: Yes I have fully participated in the care of the patient.: Yes I have reviewed all pertinent clinical information, including history, physical exam and plan: Yes Notes (Text): 11/03/17 14:56 Medical record note made by the resident after discussion with my direction and input after the patient was personally seen and examined by me. I have reviewed the chart and agree that the record accurately reflects by personal performance of the history, physical exam, data review, and medical decision- making, in the course for the patient. I have also personally directed the plan of care
[2017-11-02 07:36] LABS: BASO # 0.02 K/mm3 (0.0-2.0); BASO % 0.3 % (0.0-3.0); EOS # 0.1 (0.0-0.7); EOS % 2.2 % (1.5-5.0); GRAN # 3.78 (1.4-6.5); HEMOGLOBIN 11.2 g/dL (14.0-18.0); LYMPH # 1.3 (1.2-3.4); LYMPH % 22.7 % (22.0-35.0); MEAN CELL VOLUME 80.3 fl (80.0-105.0); MEAN CORPUSCULAR HEMOGLOBIN 25.3 pg (25.0-35.0); MEAN CORPUSCULAR HGB CONC 31.5 g/dl (31.0-37.0); MEAN PLATELET VOLUME 11.1 fl (7.0-11.0); MONO # 0.6 (0.1-0.6); MONO % 9.8 % (1.0-6.0); RBC 4.42 10^6/uL (3.5-6.1); RED CELL DISTRIBUTION WIDTH 16.8 % (11.5-14.5); WHITE BLOOD COUNT 5.8 10^3/ul (4.5-11.0)
[2017-11-02 07:51] LABS: BLOOD UREA NITROGEN 22 mg/dL (7-21); CALCIUM 9.4 mg/dL (8.4-10.5); GFR AFRICAN-AMERICAN > 60; GFR NON-AFRICAN AMERICAN > 60
[2017-11-02 07:55] LABS: INR 1.96; PROTHROMBIN TIME 22.9 SECONDS (9.4-12.5)
[2017-11-02] MEDS: Pantoprazole 40 mg EC Tab PO SCH (08:08)
--- NOTE | 2017-11-02 16:23 | CP.PCM.PN ---
Subjective - Date & Time of Evaluation Date of Evaluation: 11/02/17 Time of Evaluation: 15:30 - Subjective Subjective: Infectious Disease Follow Up: November 02, 2017 52 yo male with extensive medical history including paraplegia, IVDA, T2 epidural abscess, ileostomy, and chronic sacral decubiti presenting with worsening sacral decubiti ulcerations. He states that he has discharge and malodor at the ulceration sites. The patient is bedbound. Bone scan done. Results showing possible osteomyelitis of the right ischium. For debridement of the sacral decubiti by Dr. Askew... done on Thursday. No definitive signs of osteomyelitis. ESBL + Proteus in urine cultures. No renal disease. Completed Gentamicin No new issues at this time. PICC placed. Wound vac in place. Patient comfortable. Patient in very good mood. Objective - Vital Signs/Intake and Output Vital Signs (last 24 hours): Temp Pulse Resp BP Pulse Ox 98 F 65 95 H 96/51 L 97 11/02/17 14:00 11/02/17 14:00 11/02/17 14:00 11/02/17 14:00 11/02/17 06:00 Intake and Output: 11/02/17 11/02/17 06:59 18:59 Intake Total 2100 Output Total 4350 1000 Balance -2250 -1000 - Medications Medications: Current Medications Acetaminophen (Tylenol 325mg Tab) 650 mg PO Q6H PRN PRN Reason: Other Last Admin: 11/02/17 14:18 Dose: 650 mg Baclofen (Lioresal) 20 mg PO BID PRN PRN Reason: Pain, moderate (4-7) Last Admin: 11/01/17 21:25 Dose: 20 mg Docusate Sodium (Colace) 100 mg PO BID [facility] Last Admin: 11/02/17 09:55 Dose: Not Given Aztreonam (Azactam 1 Gm) 100 mls @ 100 mls/hr IVPB Q8 DONAL PRN Reason: Protocol Last Admin: 11/02/17 14:22 Dose: 100 mls/hr Ondansetron HCl (Zofran Inj) 4 mg IVP Q4 PRN PRN Reason: Nausea/Vomiting Pantoprazole Sodium (Protonix Ec Tab) 40 mg PO ACB [facility] Last Admin: 11/02/17 08:08 Dose: 40 mg Silver Sulfadiazine (Silvadene 1% 25 Gm) 0 gm TP DAILY [facility] Last Admin: 11/01/17 09:38 Dose: 1 gm Sodium Hypochlorite (Dakins Solution 0.25%) 1 ml TOP DAILY [facility] Last Admin: 11/01/17 09:37 Dose: Not Given Warfarin Sodium (Coumadin) 5 mg PO 1800 [facility] PRN Reason: Protocol Last Admin: 11/01/17 17:22 Dose: 5 mg - Labs Labs: 11/02/17 07:00 11/02/17 07:00 PT 22.9 SECONDS (9.4-12.5) H 11/02/17 07:00 INR 1.96 11/02/17 07:00 APTT 29.7 Seconds (25.1-36.5) 10/27/17 07:20 - Constitutional Appears: Non-toxic, No Acute Distress, Chronically Ill - Head Exam Head Exam: ATRAUMATIC, NORMOCEPHALIC - Eye Exam Eye Exam: EOMI, PERRL Pupil Exam: NORMAL ACCOMODATION - ENT Exam ENT Exam: Mucous Membranes Moist, Normal External Ear Exam, TM's Normal Bilaterally - Neck Exam Neck Exam: Full ROM, Normal Inspection - Respiratory Exam Respiratory Exam: Clear to Ausculation Bilateral, NORMAL BREATHING PATTERN. absent: Rales, Rhonchi, Wheezes - Cardiovascular Exam Cardiovascular Exam: REGULAR RHYTHM, RRR, +S1, +S2 - GI/Abdominal Exam GI & Abdominal Exam: Soft, Normal Bowel Sounds. absent: Distended, Tenderness Additional comments: colostomy bag draining well - Extremities Exam Additional comments: paraplegic, contracted extremities all four limbs. - Neurological Exam Neurological Exam: Alert, Awake, CN II-XII Intact, Oriented x3 - Psychiatric Exam Psychiatric exam: Normal Affect, Normal Mood - Skin Additional comments: pt has a stage IV sacral ulcer over his right ischium s/p debridement. Wound vac in place. pt has a stage I ulver on his left and right buttocks Assessment and Plan - Assessment and Plan (Free Text) Assessment: 52 yo male with extensive sacral decubiti stage IV in additional to other medical issues. Patient with known rash with PCN. Unclear why Zosyn was given in PCN allergy. 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 For now would start with Aztreonam and obtain wound cultures (hopefully done before any antibiotics were started.). Supportive and wound care. Surgery evaluation for potential debridement. Can extend coverage if MRSA is found. There may need to be a desensitization to carbapenems if resistant gram negatives are found in cultures. Gram negative rods in two cultures. Results of the bone scan show questionable osteomyelitis findings of the right ischium. Sacral wound with Enterobacter. May need 4 to 6 weeks of IV antibiotics for questionable osteomyelitis. OR debridement on Thursday10/26/2017. ESBL+ Proteus in urine cultures. Gentamicin IV started for treatment of 3 days. Enterobacter in wound cultures. Completed Aztreonam for antibiotic coverage with the short course of Gentamicin (Day 3... completed.). Gentamicin completed. Wound vac placed. Supportive care. Patient appears comfortable. Patient in good mood. Thank you for allowing me to participate in the care of the patient, we will follow with you.
[2017-11-02] MEDS: Silver Sulfadiazine 1% Cream (25 gm) TP SCH (18:27)
[2017-11-02] MEDS: Dakin's Topical 0.25%-Half Strength (480 ml) TOP SCH (18:49)
[2017-11-03] MEDS: Aztreonam 1 Gm in NS 100mL 100 ML IVPB SCH ×3 (06:01→23:19)
--- NOTE | 2017-11-03 06:06 | CP.PCM.PN ---
<Hank Tee - Last Filed: 11/03/17 18:00> Subjective - Date & Time of Evaluation Date of Evaluation: 11/03/17 Time of Evaluation: 06:06 - Subjective Subjective: Hank Tee DO PGY1 Internal Medicine [employer] Seen this AM at bedside; No acute events overnight. No complaints voiced this AM; no fevers, chills, cough, sob, cp, abd pain, colostomy draining appropriately. 12 system ROS otherwise negative. Objective - Vital Signs/Intake and Output Vital Signs (last 24 hours): Temp Pulse Resp BP Pulse Ox 98.6 F 79 18 108/66 98 11/02/17 22:02 11/02/17 22:02 11/02/17 22:02 11/02/17 22:02 11/02/17 22:02 Intake and Output: 11/02/17 11/03/17 18:59 06:59 Intake Total 300 Output Total 1000 600 Balance -1000 -300 - Medications Medications: Current Medications Acetaminophen (Tylenol 325mg Tab) 650 mg PO Q6H PRN PRN Reason: Other Last Admin: 11/02/17 22:40 Dose: 650 mg Baclofen (Lioresal) 20 mg PO BID PRN PRN Reason: Pain, moderate (4-7) Last Admin: 11/01/17 21:25 Dose: 20 mg Docusate Sodium (Colace) 100 mg PO BID [facility] Last Admin: 11/02/17 18:00 Dose: Not Given Aztreonam (Azactam 1 Gm) 100 mls @ 100 mls/hr IVPB Q8 DONAL PRN Reason: Protocol Last Admin: 11/02/17 22:35 Dose: 100 mls/hr Ondansetron HCl (Zofran Inj) 4 mg IVP Q4 PRN PRN Reason: Nausea/Vomiting Pantoprazole Sodium (Protonix Ec Tab) 40 mg PO ACB [facility] Last Admin: 11/02/17 08:08 Dose: 40 mg Silver Sulfadiazine (Silvadene 1% 25 Gm) 0 gm TP DAILY [facility] Last Admin: 11/02/17 18:27 Dose: 25 gm Sodium Hypochlorite (Dakins Solution 0.25%) 1 ml TOP DAILY [facility] Last Admin: 11/02/17 18:49 Dose: Not Given Warfarin Sodium (Coumadin) 5 mg PO 1800 [facility] PRN Reason: Protocol Last Admin: 11/02/17 17:47 Dose: 5 mg - Labs Labs: 11/02/17 07:00 11/02/17 07:00 PT 22.9 SECONDS (9.4-12.5) H 11/02/17 07:00 INR 1.96 11/02/17 07:00 APTT 29.7 Seconds (25.1-36.5) 10/27/17 07:20 - Constitutional Appears: Well, Non-toxic, No Acute Distress - Head Exam Head Exam: ATRAUMATIC, NORMOCEPHALIC - Eye Exam Eye Exam: EOMI, PERRL. absent: Scleral icterus - ENT Exam ENT Exam: Mucous Membranes Moist - Neck Exam Neck Exam: Normal Inspection - Respiratory Exam Respiratory Exam: Clear to Ausculation Bilateral, NORMAL BREATHING PATTERN - Cardiovascular Exam Cardiovascular Exam: RRR, +S1, +S2 - GI/Abdominal Exam GI & Abdominal Exam: Soft. absent: Tenderness Additional comments: Colostomy present; draining pasty stools; no erythema/ inflammation at colostomy site. - Back Exam Additional comments: Sacral ulcer w/ wound vac in place; draining appropriately. Dressing is CDI. - Neurological Exam Neurological Exam: Alert, Awake, CN II-XII Intact, Oriented x3 - Psychiatric Exam Psychiatric exam: Normal Affect, Normal Mood - Skin Skin Exam: Dry, Intact, Warm Assessment and Plan - Assessment and Plan (Free Text) Assessment: 52 year old male pertinent history of chronic sacral ulcers, chronic UTI, paraplegia, and previous DVT presented with worsening bed sores. On admission, patient was afebrile with stable vitals, and no other SIRS criteria. Wound culture is now growing enterobacter, pansensitive to cipro, bactrim, ertapenem, gentamicin, merrem, and zosyn; urine culture growing ESBL proteus. Patient is now status post sacral debridement by surgery w/ woundvac in place. 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 - wound culture collected 10/19/17 grew enterobacter aerogenes; Bone scan concerning for Osteomyelitis - C/w aztreonam IV - Antibiotic therapy Started 10/20; Will require 5 weeks of total therapy. PICC line in place * patient with allergies to multiple abx including ceftriaxone, cephalosporins ( rash), vancomycin (red man syndrome) - s/p debridement by surgery pod #9 * C/w local wound care, and wound vac management as per surgery. Wound vac changed 10/30, next change 11/03 * Will follow up with surgery regarding plans moving forward post wound vac - ID on board, Dr Valadez - also with right gluteal Stage 2 ulcer with optiform - C/w baclofen - C/w air mattress, turn pt q2h and off loading - Tylenol 650mg po q6h prn for pain - Zofran 4mg ivp q6h prn for nausea/vomiting - Further wound management recs as per wound care, surgery, and ID Hx of DVT/PE -subtherapeutic INR, 1.96 today -Increased to warfarin 6mg today UTI - Resolved - Urine culture collected 10/19/17 growing ESBL+ proteus. Gentamicin given for 3 days and now discontinued. 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 Patient seen, examined, and case discussed at length w/ attending physician Dr. Edgardo Tee DO PGY1 Internal Medicine [employer] - Pager [phone] <Jarrod Reynoso - Last Filed: 11/05/17 14:06> Objective - Vital Signs/Intake and Output Vital Signs (last 24 hours): Temp Pulse Resp BP Pulse Ox 98.7 F 61 20 126/73 98 11/05/17 06:00 11/05/17 06:00 11/05/17 06:00 11/05/17 06:00 11/05/17 06:00 Intake and Output: 11/05/17 11/05/17 06:59 18:59 Intake Total 620 Output Total 1800 Balance -1180 - Labs Labs: 11/04/17 06:00 11/05/17 06:45 PT 24.0 SECONDS (9.4-12.5) H 11/05/17 06:45 INR 2.06 11/05/17 06:45 APTT 29.7 Seconds (25.1-36.5) 10/27/17 07:20 Attending/Attestation - Attestation I have personally seen and examined this patient.: Yes I have fully participated in the care of the patient.: Yes I have reviewed all pertinent clinical information, including history, physical exam and plan: Yes Notes (Text): 11/05/17 13:59 Medical record note made by the resident after discussion with my direction and input after the patient was personally seen and examined by me. I have reviewed the chart and agree that the record accurately reflects by personal performance of the history, physical exam, data review, and medical decision-making, in the course for the patient. I have also personally directed the plan of care. 52 year old male with PMH of paraplegia, epidural abscess, s/p colostomy, and sacral ulcers was admitted for infected decubitus sacral ulcer. Bone scan was suggestive of osteomyelitis of coccyx bone. Patient is s/p debridement and wound wa He is also s/p wound vac. He is s/p picc line. Wound culture is growing enterobacter aerogenes. Case was discussed with ID.Case was discussed with ID .Antibiotic can be changed to oral ciprofloxacin at the time of discharge.We will follow up with surgery regarding plan for wound care. Patient is on coumadin for history of DVT. Management plan was discussed in detail with patient. Education was provided.
[2017-11-03 06:58] LABS: BASO # 0.02 K/mm3 (0.0-2.0); BASO % 0.3 % (0.0-3.0); EOS # 0.1 (0.0-0.7); EOS % 2.2 % (1.5-5.0); GRAN # 3.65 (1.4-6.5); GRAN % 62.8 % (50.0-68.0); HEMOGLOBIN 10.8 g/dL (14.0-18.0); LYMPH # 1.3 (1.2-3.4); LYMPH % 21.6 % (22.0-35.0); MEAN CORPUSCULAR HEMOGLOBIN 25.2 pg (25.0-35.0); MEAN CORPUSCULAR HGB CONC 31.5 g/dl (31.0-37.0); MEAN PLATELET VOLUME 10.7 fl (7.0-11.0); MONO # 0.8 (0.1-0.6); MONO % 13.1 % (1.0-6.0); RBC 4.29 10^6/uL (3.5-6.1); RED CELL DISTRIBUTION WIDTH 16.9 % (11.5-14.5); WHITE BLOOD COUNT 5.8 10^3/ul (4.5-11.0)
--- NOTE | 2017-11-03 08:19 | CP.PCM.PN ---
Subjective - Date & Time of Evaluation Date of Evaluation: 11/03/17 Time of Evaluation: 07:40 - Subjective Subjective: General Surgery Progress Note for Dr. Askew Patient seen and examined at bedside this AM. No acute events reported overnight. Patient has no complaints, continues to deny any chest pain or SOB. No nausea/vomiting/diarrhea, no fevers or chills. Reports functioning stoma. He is requiring intermediate IV antibiotics. Objective - Vital Signs/Intake and Output Vital Signs (last 24 hours): Temp Pulse Resp BP Pulse Ox 98.6 F 79 18 108/66 98 11/02/17 22:02 11/02/17 22:02 11/02/17 22:02 11/02/17 22:02 11/02/17 22:02 Intake and Output: 11/03/17 11/03/17 06:59 18:59 Intake Total 300 Output Total 600 Balance -300 - Medications Medications: Current Medications Acetaminophen (Tylenol 325mg Tab) 650 mg PO Q6H PRN PRN Reason: Other Last Admin: 11/03/17 06:02 Dose: 650 mg Baclofen (Lioresal) 20 mg PO BID PRN PRN Reason: Pain, moderate (4-7) Last Admin: 11/03/17 06:04 Dose: 20 mg Docusate Sodium (Colace) 100 mg PO BID [facility] Last Admin: 11/02/17 18:00 Dose: Not Given Aztreonam (Azactam 1 Gm) 100 mls @ 100 mls/hr IVPB Q8 DONAL PRN Reason: Protocol Last Admin: 11/03/17 06:01 Dose: 100 mls/hr Ondansetron HCl (Zofran Inj) 4 mg IVP Q4 PRN PRN Reason: Nausea/Vomiting Pantoprazole Sodium (Protonix Ec Tab) 40 mg PO ACB [facility] Last Admin: 11/02/17 08:08 Dose: 40 mg Silver Sulfadiazine (Silvadene 1% 25 Gm) 0 gm TP DAILY [facility] Last Admin: 11/02/17 18:27 Dose: 25 gm Sodium Hypochlorite (Dakins Solution 0.25%) 1 ml TOP DAILY [facility] Last Admin: 11/02/17 18:49 Dose: Not Given Warfarin Sodium (Coumadin) 5 mg PO 1800 DONAL PRN Reason: Protocol Last Admin: 08/06/18 17:47 Dose: 5 mg - Labs Labs: 11/03/17 06:20 11/02/17 07:00 PT 22.9 SECONDS (9.4-12.5) H 11/02/17 07:00 INR 1.96 11/02/17 07:00 APTT 29.7 Seconds (25.1-36.5) 10/27/17 07:20 - Constitutional Appears: Non-toxic, No Acute Distress - Head Exam Head Exam: ATRAUMATIC, NORMAL INSPECTION, NORMOCEPHALIC - Eye Exam Eye Exam: Normal appearance - Neck Exam Neck Exam: Normal Inspection - Respiratory Exam Respiratory Exam: NORMAL BREATHING PATTERN - Cardiovascular Exam Cardiovascular Exam: RRR, +S1, +S2 - GI/Abdominal Exam GI & Abdominal Exam: Soft, Normal Bowel Sounds Additional comments: LLQ colostomy in place with stool in bag - Extremities Exam Extremities Exam: Normal Capillary Refill, Normal Inspection - Back Exam Additional comments: Stage 2 sacral ulcer with optiform Stage 4 ischial ulcer with wound vac - Neurological Exam Neurological Exam: Alert, Awake, Oriented x3 - Psychiatric Exam Psychiatric exam: Normal Affect, Normal Mood - Skin Skin Exam: Dry, Warm Assessment and Plan - Assessment and Plan (Free Text) Assessment: 52 M with stage 4 ischial ulcer and possible osteomyelitis, S/p debridement of R ischial ulcer (stage 4) and R gluteal ulcer (stage 2) POD#8 Plan: -wound vac change today -air mattress, repositioning q2h and off loading -continue IV antibiotics as per ID -if pt is d/c'd on PO antibiotics, we will discuss changing wound vac to another dressing -f/u INR; continue warfarin 5mg po qd and maintain INR 2-[address] Askew, who agrees with management as per above Roni Kaur, PGY-1
[2017-11-03] MEDS: Dakin's Topical 0.25%-Half Strength (480 ml) TOP SCH (09:32)
[2017-11-03] MEDS: Silver Sulfadiazine 1% Cream (25 gm) TP SCH (12:08)
[2017-11-03] MEDS: Pantoprazole 40 mg EC Tab PO SCH (16:09)
--- NOTE | 2017-11-03 18:33 | CP.PCM.PN ---
Subjective - Date & Time of Evaluation Date of Evaluation: 11/03/17 Time of Evaluation: 16:00 - Subjective Subjective: Infectious Disease Follow Up: November 03, 2017 52 yo male with extensive medical history including paraplegia, IVDA, T2 epidural abscess, ileostomy, and chronic sacral decubiti presenting with worsening sacral decubiti ulcerations. He states that he has discharge and malodor at the ulceration sites. The patient is bedbound. Bone scan done. Results showing possible osteomyelitis of the right ischium. For debridement of the sacral decubiti by Dr. Askew... done on Thursday. No definitive signs of osteomyelitis. ESBL + Proteus in urine cultures. No renal disease. Completed Gentamicin No new issues at this time. PICC placed. Wound vac in place. Patient comfortable. Patient in very good mood. Objective - Vital Signs/Intake and Output Vital Signs (last 24 hours): Temp Pulse Resp BP Pulse Ox 97.1 F L 63 20 119/69 98 11/03/17 06:00 11/03/17 06:00 11/03/17 06:00 11/03/17 06:00 11/03/17 06:00 Intake and Output: 11/03/17 11/03/17 06:59 18:59 Intake Total 300 Output Total 600 Balance -300 - Medications Medications: Current Medications Acetaminophen (Tylenol 325mg Tab) 650 mg PO Q6H PRN PRN Reason: Other Last Admin: 11/03/17 17:03 Dose: 650 mg Baclofen (Lioresal) 20 mg PO BID PRN PRN Reason: Pain, moderate (4-7) Last Admin: 11/03/17 16:14 Dose: 20 mg Docusate Sodium (Colace) 100 mg PO BID [facility] Last Admin: 11/03/17 17:56 Dose: Not Given Aztreonam (Azactam 1 Gm) 100 mls @ 100 mls/hr IVPB Q8 DONAL PRN Reason: Protocol Last Admin: 11/03/17 16:09 Dose: 100 mls/hr Ondansetron HCl (Zofran Inj) 4 mg IVP Q4 PRN PRN Reason: Nausea/Vomiting Pantoprazole Sodium (Protonix Ec Tab) 40 mg PO ACB [facility] Last Admin: 11/03/17 16:09 Dose: 40 mg Silver Sulfadiazine (Silvadene 1% 25 Gm) 0 gm TP DAILY [facility] Last Admin: 11/03/17 12:08 Dose: 25 gm Sodium Hypochlorite (Dakins Solution 0.25%) 1 ml TOP DAILY [facility] Last Admin: 11/03/17 09:32 Dose: Not Given Warfarin Sodium (Coumadin) 6 mg PO 1800 DONAL PRN Reason: Protocol Last Admin: 11/03/17 17:02 Dose: 6 mg - Labs Labs: 11/03/17 06:20 11/02/17 07:00 PT 22.9 SECONDS (9.4-12.5) H 11/02/17 07:00 INR 1.96 11/02/17 07:00 APTT 29.7 Seconds (25.1-36.5) 10/27/17 07:20 - Constitutional Appears: Non-toxic, No Acute Distress, Chronically Ill - Head Exam Head Exam: ATRAUMATIC, NORMOCEPHALIC - Eye Exam Eye Exam: EOMI, PERRL Pupil Exam: NORMAL ACCOMODATION, PERRL - ENT Exam ENT Exam: Mucous Membranes Moist, Normal External Ear Exam, TM's Normal Bilaterally - Neck Exam Neck Exam: Full ROM, Normal Inspection - Respiratory Exam Respiratory Exam: Clear to Ausculation Bilateral, NORMAL BREATHING PATTERN. absent: Rales, Rhonchi, Wheezes - Cardiovascular Exam Cardiovascular Exam: REGULAR RHYTHM, RRR, +S1, +S2 - GI/Abdominal Exam GI & Abdominal Exam: Soft, Normal Bowel Sounds. absent: Distended, Tenderness Additional comments: colostomy bag draining well - Extremities Exam Additional comments: paraplegic, contracted extremities all four limbs. - Neurological Exam Neurological Exam: Alert, Awake, CN II-XII Intact, Oriented x3 - Psychiatric Exam Psychiatric exam: Normal Affect, Normal Mood - Skin Additional comments: pt has a stage IV sacral ulcer over his right ischium s/p debridement. Wound vac in place. pt has a stage I ulver on his left and right buttocks Assessment and Plan - Assessment and Plan (Free Text) Assessment: 52 yo male with extensive sacral decubiti stage IV in additional to other medical issues. Patient with known rash with PCN. Unclear why Zosyn was given in PCN allergy. 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 For now would start with Aztreonam and obtain wound cultures (hopefully done before any antibiotics were started.). Supportive and wound care. Surgery evaluation for potential debridement. Can extend coverage if MRSA is found. There may need to be a desensitization to carbapenems if resistant gram negatives are found in cultures. Gram negative rods in two cultures. Results of the bone scan show questionable osteomyelitis findings of the right ischium. Sacral wound with Enterobacter. May need 4 to 6 weeks of IV antibiotics for questionable osteomyelitis. OR debridement on Thursday10/26/2017. ESBL+ Proteus in urine cultures. Gentamicin IV started for treatment of 3 days. Enterobacter in wound cultures. Completed Aztreonam for antibiotic coverage with the short course of Gentamicin (Day 3... completed.). Gentamicin completed. Can consider use of Cipro 500mg PO BID to complete 2 more weeks of treatment. Wound vac placed. Supportive care. Patient appears comfortable. Patient in good mood. Thank you for allowing me to participate in the care of the patient, we will follow with you.
[2017-11-04] MEDS: Aztreonam 1 Gm in NS 100mL 100 ML IVPB SCH ×2 (05:56→13:29)
[2017-11-04 06:17] LABS: BASO # 0.01 K/mm3 (0.0-2.0); BASO % 0.2 % (0.0-3.0); EOS # 0.1 (0.0-0.7); EOS % 2.3 % (1.5-5.0); GRAN # 3.5 (1.4-6.5); GRAN % 62.8 % (50.0-68.0); LYMPH # 1.4 (1.2-3.4); LYMPH % 24.7 % (22.0-35.0); MEAN CELL VOLUME 80.6 fl (80.0-105.0); MEAN CORPUSCULAR HEMOGLOBIN 25.5 pg (25.0-35.0); MEAN CORPUSCULAR HGB CONC 31.6 g/dl (31.0-37.0); MEAN PLATELET VOLUME 10.8 fl (7.0-11.0); MONO # 0.6 (0.1-0.6); RBC 4.32 10^6/uL (3.5-6.1); WHITE BLOOD COUNT 5.6 10^3/ul (4.5-11.0)
[2017-11-04 06:22] LABS: INR 2.01; PROTHROMBIN TIME 23.4 SECONDS (9.4-12.5)
[2017-11-04 06:45] LABS: ALBUMIN 3.9 g/dL (3.0-4.8); ALT/SGPT 22 U/L (7-56); AST/SGOT 20 U/L (17-59); BLOOD UREA NITROGEN 20 mg/dL (7-21); CALCIUM 9.4 mg/dL (8.4-10.5); GFR AFRICAN-AMERICAN > 60; GFR NON-AFRICAN AMERICAN > 60
[2017-11-04] MEDS: Pantoprazole 40 mg EC Tab PO SCH (08:02)
[2017-11-04] MEDS: Dakin's Topical 0.25%-Half Strength (480 ml) TOP SCH (10:19)
[2017-11-04] MEDS: Silver Sulfadiazine 1% Cream (25 gm) TP SCH (10:21)
--- NOTE | 2017-11-04 14:22 | CP.PCM.PN ---
Subjective - Date & Time of Evaluation Date of Evaluation: 11/04/17 Time of Evaluation: 13:45 - Subjective Subjective: Infectious Disease Follow Up: November 04, 2017 52 yo male with extensive medical history including paraplegia, IVDA, T2 epidural abscess, ileostomy, and chronic sacral decubiti presenting with worsening sacral decubiti ulcerations. He states that he has discharge and malodor at the ulceration sites. The patient is bedbound. Bone scan done. Results showing possible osteomyelitis of the right ischium. For debridement of the sacral decubiti by Dr. Askew... done on Thursday. No definitive signs of osteomyelitis. ESBL + Proteus in urine cultures. No renal disease. Completed Gentamicin No new issues at this time. PICC placed. Wound vac in place. Patient comfortable. Patient in very good mood. Objective - Vital Signs/Intake and Output Vital Signs (last 24 hours): Temp Pulse Resp BP Pulse Ox 97.7 F 61 20 130/82 98 11/04/17 06:00 11/04/17 06:00 11/04/17 06:00 11/04/17 06:00 11/04/17 06:00 Intake and Output: 11/04/17 11/04/17 06:59 18:59 Intake Total 780 Output Total 1700 Balance -920 - Medications Medications: Current Medications Acetaminophen (Tylenol 325mg Tab) 650 mg PO Q6H PRN PRN Reason: Other Last Admin: 11/04/17 05:55 Dose: 650 mg Baclofen (Lioresal) 20 mg PO BID PRN PRN Reason: Pain, moderate (4-7) Last Admin: 11/04/17 10:18 Dose: 20 mg Ciprofloxacin (Cipro) 500 mg PO Q12 DONAL PRN Reason: Protocol Stop: 11/05/17 14:05 Docusate Sodium (Colace) 100 mg PO BID [facility] Last Admin: 11/04/17 10:21 Dose: Not Given Ondansetron HCl (Zofran Inj) 4 mg IVP Q4 PRN PRN Reason: Nausea/Vomiting Pantoprazole Sodium (Protonix Ec Tab) 40 mg PO ACB [facility] Last Admin: 11/04/17 08:02 Dose: 40 mg Silver Sulfadiazine (Silvadene 1% 25 Gm) 0 gm TP DAILY [facility] Last Admin: 08/08/18 10:21 Dose: Not Given Sodium Hypochlorite (Dakins Solution 0.25%) 1 ml TOP DAILY [facility] Last Admin: 11/04/17 10:19 Dose: Not Given Warfarin Sodium (Coumadin) 6 mg PO 1800 DONAL PRN Reason: Protocol Last Admin: 11/03/17 17:02 Dose: 6 mg - Labs Labs: 11/04/17 06:00 11/04/17 06:00 PT 23.4 SECONDS (9.4-12.5) H 11/04/17 06:00 INR 2.01 11/04/17 06:00 APTT 29.7 Seconds (25.1-36.5) 10/27/17 07:20 - Constitutional Appears: Non-toxic, No Acute Distress, Chronically Ill - Head Exam Head Exam: ATRAUMATIC, NORMOCEPHALIC - Eye Exam Eye Exam: EOMI, PERRL Pupil Exam: NORMAL ACCOMODATION, PERRL - ENT Exam ENT Exam: Mucous Membranes Moist, Normal External Ear Exam, TM's Normal Bilaterally - Neck Exam Neck Exam: Full ROM, Normal Inspection - Respiratory Exam Respiratory Exam: Clear to Ausculation Bilateral, NORMAL BREATHING PATTERN. absent: Rales, Rhonchi, Wheezes - Cardiovascular Exam Cardiovascular Exam: REGULAR RHYTHM, RRR, +S1, +S2 - GI/Abdominal Exam GI & Abdominal Exam: Soft, Normal Bowel Sounds. absent: Distended, Tenderness Additional comments: colostomy bag draining well - Extremities Exam Additional comments: paraplegic, contracted extremities all four limbs. - Neurological Exam Neurological Exam: Alert, Awake, CN II-XII Intact, Oriented x3 - Psychiatric Exam Psychiatric exam: Normal Affect, Normal Mood - Skin Additional comments: pt has a stage IV sacral ulcer over his right ischium s/p debridement. Wound vac in place. pt has a stage I ulver on his left and right buttocks Assessment and Plan - Assessment and Plan (Free Text) Assessment: 52 yo male with extensive sacral decubiti stage IV in additional to other medical issues. Patient with known rash with PCN. Unclear why Zosyn was given in PCN allergy. 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 For now would start with Aztreonam and obtain wound cultures (hopefully done before any antibiotics were started.). Supportive and wound care. Surgery evaluation for potential debridement. Can extend coverage if MRSA is found. There may need to be a desensitization to carbapenems if resistant gram negatives are found in cultures. Gram negative rods in two cultures. Results of the bone scan show questionable osteomyelitis findings of the right ischium. Sacral wound with Enterobacter. May need 4 to 6 weeks of IV antibiotics for questionable osteomyelitis. OR debridement on Thursday10/26/2017. ESBL+ Proteus in urine cultures. Gentamicin IV started for treatment of 3 days. Enterobacter in wound cultures. Completed Aztreonam for antibiotic coverage with the short course of Gentamicin (Day 3... completed.). Gentamicin completed. Can consider use of Cipro 500mg PO BID to complete 2 more weeks of treatment. Wound vac placed. Supportive care. Patient appears comfortable. Patient in good mood. Thank you for allowing me to participate in the care of the patient, we will follow with you.
--- NOTE | 2017-11-04 17:52 | CP.PCM.PN ---
<Hank Tee - Last Filed: 11/04/17 17:42> Subjective - Date & Time of Evaluation Date of Evaluation: 11/04/17 Time of Evaluation: 17:42 - Subjective Subjective: Hank Tee DO PGY1 Internal Medicine Fitting Room Operator - Hospital Progress note Patient was seen at bedsid this AM; did not complain of any fever, cough, chill SOB, CP ON. Nurising reported no issues at this time. Patient's brother to come in today to received wound care education. ROS negative. Objective - Vital Signs/Intake and Output Vital Signs (last 24 hours): Temp Pulse Resp BP Pulse Ox 98.6 F 70 20 122/77 99 11/04/17 14:00 11/04/17 14:00 11/04/17 14:00 11/04/17 14:00 11/04/17 14:00 Intake and Output: 11/04/17 11/04/17 06:59 18:59 Intake Total 780 Output Total 1700 Balance -920 - Medications Medications: Current Medications Acetaminophen (Tylenol 325mg Tab) 650 mg PO Q6H PRN PRN Reason: Other Last Admin: 11/04/17 05:55 Dose: 650 mg Baclofen (Lioresal) 20 mg PO BID PRN PRN Reason: Pain, moderate (4-7) Last Admin: 11/04/17 10:18 Dose: 20 mg Ciprofloxacin (Cipro) 500 mg PO Q12 DONAL PRN Reason: Protocol Stop: 11/05/17 14:05 Docusate Sodium (Colace) 100 mg PO BID [facility] Last Admin: 11/04/17 10:21 Dose: Not Given Ondansetron HCl (Zofran Inj) 4 mg IVP Q4 PRN PRN Reason: Nausea/Vomiting Pantoprazole Sodium (Protonix Ec Tab) 40 mg PO ACB [facility] Last Admin: 11/04/17 08:02 Dose: 40 mg Silver Sulfadiazine (Silvadene 1% 25 Gm) 0 gm TP DAILY [facility] Last Admin: 11/04/17 10:21 Dose: Not Given Sodium Hypochlorite (Dakins Solution 0.25%) 1 ml TOP DAILY [facility] Last Admin: 11/04/17 10:19 Dose: Not Given Warfarin Sodium (Coumadin) 6 mg PO 1800 [facility] PRN Reason: Protocol Last Admin: 11/03/17 17:02 Dose: 6 mg - Labs Labs: 11/04/17 06:00 11/04/17 06:00 PT 23.4 SECONDS (9.4-12.5) H 11/04/17 06:00 INR 2.01 11/04/17 06:00 APTT 29.7 Seconds (25.1-36.5) 10/27/17 07:20 - Constitutional Appears: Well, Non-toxic, No Acute Distress - Head Exam Head Exam: ATRAUMATIC, NORMOCEPHALIC - Eye Exam Eye Exam: EOMI, PERRL. absent: Scleral icterus - ENT Exam ENT Exam: Mucous Membranes Moist - Neck Exam Neck Exam: Normal Inspection - Respiratory Exam Respiratory Exam: Clear to Ausculation Bilateral, NORMAL BREATHING PATTERN - Cardiovascular Exam Cardiovascular Exam: RRR, +S1, +S2 - GI/Abdominal Exam GI & Abdominal Exam: Soft. absent: Tenderness Additional comments: Colostomy present;draining stool no changes. - Back Exam Additional comments: Sacral ulcer w/ wound vac in place; draining appropriately. Dressing is CDI. - Neurological Exam Neurological Exam: Alert, Awake, CN II-XII Intact, Oriented x3 - Psychiatric Exam Psychiatric exam: Normal Affect, Normal Mood - Skin Skin Exam: Dry, Intact, Warm Assessment and Plan - Assessment and Plan (Free Text) Assessment: 52 year old male pertinent history of chronic sacral ulcers, chronic UTI, paraplegia, and previous DVT presented with worsening bed sores. On admission, patient was afebrile with stable vitals, and no other SIRS criteria. Wound culture is now growing enterobacter, pansensitive to cipro, bactrim, ertapenem, gentamicin, merrem, and zosyn; urine culture growing ESBL proteus. Patient is now status post sacral debridement by surgery w/ woundvac in place. 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 - wound culture collected 10/19/17 grew enterobacter aerogenes; Bone scan concerning for Osteomyelitis - DC aztreonam IV - Antibiotic therapy Started 10/20; - Start Ciprofloxacin 500mg BID * patient with allergies to multiple abx including ceftriaxone, cephalosporins ( rash), vancomycin (red man syndrome) - s/p debridement by surgery pod #[id number] * Will follow up with surgery regarding plans moving forward post wound vac; may consider removing woundvac today - ID on board, Dr Valadez - also with right gluteal Stage 2 ulcer with optiform - C/w baclofen - C/w air mattress, turn pt q2h and off loading - Tylenol 650mg po q6h prn for pain - Zofran 4mg ivp q6h prn for nausea/vomiting - Further wound management recs as per wound care, surgery, and ID Hx of DVT/PE -At goal 2.06 today -Continue warfarin 6mg today UTI - Resolved - Urine culture collected 10/19/17 growing ESBL+ proteus. Gentamicin given for 3 days and now discontinued. * on contact precautions - Repeat Urine culture ordered 11/02- no growth reported - ID on board, Dr Valadez Ileostomy, chronic - Hx since Jan 2017 as per patient - Colostomy bag functioning well - Surgery consulted, f/u recs Hx paraplegia/immobility - PT and OT screen Hx IVDA - Urine drug screen negative GI/DVT ppx: Protonix 40mg po qd, Warfarin as above Disposition plan: Patient is s/p debridement POD10 today; PICC line removed today; and patient transitioned to PO abx. Brother is being educated on woundcare; and wound vac to possibly be DC'd by surgery. Consider DC to home tomorrow. Patient seen, examined, and case discussed at length w/ attending physician Dr. Edgardo Tee DO PGY1 Internal Medicine Fitting Room Operator - Pager [phone] <Jarrod Reynoso - Last Filed: 11/05/17 14:07> Objective - Vital Signs/Intake and Output Vital Signs (last 24 hours): Temp Pulse Resp BP Pulse Ox 98.7 F 61 20 126/73 98 11/05/17 06:00 11/05/17 06:00 11/05/17 06:00 11/05/17 06:00 11/05/17 06:00 Intake and Output: 11/05/17 11/05/17 06:59 18:59 Intake Total 620 Output Total 1800 Balance -1180 - Labs Labs: 11/04/17 06:00 11/05/17 06:45 PT 24.0 SECONDS (9.4-12.5) H 11/05/17 06:45 INR 2.06 11/05/17 06:45 APTT 29.7 Seconds (25.1-36.5) 10/27/17 07:20 Attending/Attestation - Attestation I have personally seen and examined this patient.: Yes I have fully participated in the care of the patient.: Yes I have reviewed all pertinent clinical information, including history, physical exam and plan: Yes Notes (Text): 11/05/17 14:07 Medical record note made by the resident after discussion with my direction and input after the patient was personally seen and examined by me. I have reviewed the chart and agree that the record accurately reflects by personal performance of the history, physical exam, data review, and medical decision-making, in the course for the patient. I have also personally directed the plan of care.
[2017-11-04 22:17] VITALS: O2SAT 98
[2017-11-05 07:19] LABS: ALBUMIN 4.2 g/dL (3.0-4.8); ALT/SGPT 23 U/L (7-56); AST/SGOT 23 U/L (17-59); BLOOD UREA NITROGEN 19 mg/dL (7-21); CALCIUM 9.8 mg/dL (8.4-10.5); GFR AFRICAN-AMERICAN > 60; GFR NON-AFRICAN AMERICAN > 60
[2017-11-05 07:20] LABS: INR 2.06
[2017-11-05 07:50] VITALS: BP 126/73; PULSE 61; RESP 20; TEMP 98.7
[2017-11-05] MEDS: Pantoprazole 40 mg EC Tab PO SCH (09:57)
[2017-11-05] MEDS ORDERED: Dakin's Topical 0.25%-Half Strength (480 ml) TOP SCH (10:00)
--- NOTE | 2017-11-05 18:03 | CP.PCM.PN ---
Subjective - Date & Time of Evaluation Date of Evaluation: 11/05/17 Time of Evaluation: 11:30 - Subjective Subjective: Infectious Disease Follow Up: November 05, 2017 52 yo male with extensive medical history including paraplegia, IVDA, T2 epidural abscess, ileostomy, and chronic sacral decubiti presenting with worsening sacral decubiti ulcerations. He states that he has discharge and malodor at the ulceration sites. The patient is bedbound. Bone scan done. Results showing possible osteomyelitis of the right ischium. For debridement of the sacral decubiti by Dr. Askew... done on Thursday. No definitive signs of osteomyelitis. ESBL + Proteus in urine cultures. No renal disease. Completed Gentamicin No new issues at this time. PICC placed. Wound vac in place. Patient comfortable. Patient in very good mood. Objective - Vital Signs/Intake and Output Vital Signs (last 24 hours): Temp Pulse Resp BP Pulse Ox 98.7 F 61 20 126/73 98 11/05/17 06:00 11/05/17 06:00 11/05/17 06:00 11/05/17 06:00 11/05/17 06:00 Intake and Output: 11/05/17 11/05/17 06:59 18:59 Intake Total 620 Output Total 1800 Balance -1180 - Labs Labs: 11/04/17 06:00 11/05/17 06:45 PT 24.0 SECONDS (9.4-12.5) H 11/05/17 06:45 INR 2.06 11/05/17 06:45 APTT 29.7 Seconds (25.1-36.5) 10/27/17 07:20 - Constitutional Appears: Non-toxic, No Acute Distress, Chronically Ill - Head Exam Head Exam: ATRAUMATIC, NORMOCEPHALIC - Eye Exam Eye Exam: EOMI, PERRL Pupil Exam: NORMAL ACCOMODATION, PERRL - ENT Exam ENT Exam: Mucous Membranes Moist, Normal External Ear Exam, TM's Normal Bilaterally - Neck Exam Neck Exam: Full ROM, Normal Inspection - Respiratory Exam Respiratory Exam: Clear to Ausculation Bilateral, NORMAL BREATHING PATTERN. absent: Rales, Rhonchi, Wheezes - Cardiovascular Exam Cardiovascular Exam: REGULAR RHYTHM, RRR, +S1, +S2 - GI/Abdominal Exam GI & Abdominal Exam: Soft, Normal Bowel Sounds. absent: Distended, Tenderness Additional comments: colostomy bag draining well - Extremities Exam Additional comments: paraplegic, contracted extremities all four limbs. - Neurological Exam Neurological Exam: Alert, Awake, CN II-XII Intact, Oriented x3 - Psychiatric Exam Psychiatric exam: Normal Affect, Normal Mood - Skin Additional comments: pt has a stage IV sacral ulcer over his right ischium s/p debridement. Wound vac in place. pt has a stage I ulver on his left and right buttocks Assessment and Plan - Assessment and Plan (Free Text) Assessment: 52 yo male with extensive sacral decubiti stage IV in additional to other medical issues. Patient with known rash with PCN. Unclear why Zosyn was given in PCN allergy. 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 For now would start with Aztreonam and obtain wound cultures (hopefully done before any antibiotics were started.). Supportive and wound care. Surgery evaluation for potential debridement. Can extend coverage if MRSA is found. There may need to be a desensitization to carbapenems if resistant gram negatives are found in cultures. Gram negative rods in two cultures. Results of the bone scan show questionable osteomyelitis findings of the right ischium. Sacral wound with Enterobacter. May need 4 to 6 weeks of IV antibiotics for questionable osteomyelitis. OR debridement on Thursday10/26/2017. ESBL+ Proteus in urine cultures. Gentamicin IV started for treatment of 3 days. Enterobacter in wound cultures. Completed Aztreonam for antibiotic coverage with the short course of Gentamicin (Day 3... completed.). Gentamicin completed. Utilize Cipro 500mg PO BID to complete 2 more weeks of treatment. Wound vac placed. Supportive care. Patient appears comfortable. Patient in good mood. Thank you for allowing me to participate in the care of the patient, we will follow with you.
== END 2017-11-05 13:22 | disposition home or self-care (01) | DRG 592 ==
LOC: ED 20:28 → ERH 20:58 → 5RSO 10-20 00:08
PROVIDERS: ADMIT Internal Medicine; ATTEND Internal Medicine
DX: L89.894 Pressure ulcer of other site, stage 4 (principal); M46.28 Osteomyelitis of vertebra, sacral and sacrococcygeal region; G82.20 Paraplegia, unspecified; N39.0 Urinary tract infection, site not specified; L89.150 Pressure ulcer of sacral region, unstageable; L89.312 Pressure ulcer of right buttock, stage 2; E11.69 Type 2 diabetes mellitus with other specified complication; F10.11 Alcohol abuse, in remission; F14.11 Cocaine abuse, in remission; I10 Essential (primary) hypertension; N31.9 Neuromuscular dysfunction of bladder, unspecified; R79.1 Abnormal coagulation profile; Z74.01 Bed confinement status; Z79.01 Long term (current) use of anticoagulants; Z83.3 Family history of diabetes mellitus; Z86.61 Personal history of infections of the central nervous system; Z86.718 Personal history of other venous thrombosis and embolism; Z87.891 Personal history of nicotine dependence; Z88.0 Allergy status to penicillin; Z93.3 Colostomy status; B96.4 Proteus (mirabilis) (morganii) as the cause of diseases classified elsewhere

== ENCOUNTER 2018-03-18 19:54 | Inpatient (IN) | payer OTHER ==
[2018-03-18 20:07] VITALS: BMI 26.2
--- NOTE | 2018-03-18 20:30 | ED PDOC ---
Arrival/HPI - General Chief Complaint: Abdominal Pain Historian: Patient - History of Present Illness Narrative History of Present Illness (Text): 03/18/18 20:20 52 year old male, whose past medical history includes paraplegia, colostomy, chronic indwelling haque, DVT on Coumadin, stage 4 sacral decubitus ulcer s/p surgical revision, and hypertension, presents to the emergency department with penile swelling and abdominal pain. Patient informs he has a catheter and colostomy bag in place. Patient states his RN changed his catheter a few days ago. He reports seeing deposits and murkiness within his haque bag, and today his penis began to swell. Patient informs he has also been feeling swelling in abdomen around colostomy bag, with some associated abdominal pain. Patient denies any fevers, chills, headache, dizziness, chest pain, shortness of breath, cough, or any other complaint. Time/Duration: Prior to Arrival Symptom Onset: Gradual Symptom Course: Unchanged Context: Home Past Medical History - Provider Review Nursing Documentation Reviewed: Yes - Travel History Have you recently traveled outside [place] w/in the past 3 mons?: No - Infectious Disease Hx of Infectious Diseases: None - Cardiac Hx Pacemaker: No - Pulmonary Hx Respiratory Disorders: No - Neurological Hx Neurological Disorder: Yes Other/Comment: paraplegic - HEENT Hx HEENT Disorder: No - Renal Hx Renal Disorder: No - Endocrine/Metabolic Hx Endocrine Disorders: No - Hematological/Oncological Hx Cancer: No - Integumentary Hx Dermatological Disorder: Yes Other/Comment: 05-26-17 PRESSURE SACRAL ULCER-HEALING WOUND BUT HAS 2 OPEN WOUND STAGE 2 1 CM IN DM. RIGHT BUTTOCK PRESSURE ULCER WITH OPEN WOUND SMOOTH EDGES,WOUND VAC AT HOME,NON HEALING WOUND.DEPTH OF 5 CM WITH INDURATION OF 3.5 AT 12 OCLOCK.WOUND BED HAS MOIST BLACK FILM NECROTIC TISSUE. LEFT HEEL HAS A PRESSURE ULCER BLACKENED NECROTIC TISSUE COVERING WHOLE WOUND.MEASURES 3 X 4 CM. - Musculoskeletal/Rheumatological Hx Falls: No - Gastrointestinal Hx Gastrointestinal Disorders: Yes (COLOSTOMY LEFT.) Hx Colostomy: Yes - Genitourinary/Gynecological Hx Genitourinary Disorders: Yes Hx Incontinence: Yes Other/Comment: has haque and diaper - Psychiatric Hx Psychophysiologic Disorder: No Hx Substance Use: No - Surgical History Hx Mastectomy: No - Anesthesia Hx Anesthesia: Yes Hx Anesthesia Reactions: No Hx Malignant Hyperthermia: No - Suicidal Assessment Feels Threatened In Home Enviroment: No Family/Social History - Physician Review Nursing Documentation Reviewed: Yes Family/Social History: No Known Family HX Smoking Status: Former Smoker Hx Alcohol Use: No Hx Substance Use: No Allergies/Home Meds Allergies/Adverse Reactions: Allergies ceftriaxone [From Rocephin] Adverse Reaction (Mild, Verified 03/18/18 20:07) BURNING AT IV SITE BURNING/ITCHING AT IV SITE; NOT GENERALIZED RASH Cephalosporins Adverse Reaction (Mild, Verified 03/18/18 20:07) BURNING AT IV SITE LOCALIZED BURNING/ITCHING AT IV SITE; NOT GENERALIZED RASH vancomycin Adverse Reaction (Verified 03/18/18 20:07) ITCHING Review of Systems - Physician Review All systems were reviewed & negative as marked: Yes - Review of Systems Constitutional: absent: Fevers, Night Sweats Respiratory: absent: SOB, Cough Cardiovascular: absent: Chest Pain Gastrointestinal: Abdominal Pain Genitourinary Male: Urinary Output Changes (cloudy urine), Other (Penile Swelling) Neurological: absent: Headache, Dizziness Physical Exam Vital Signs Reviewed: Yes Vital Signs Pulse Resp BP Pulse Ox 03/18/18 20:09 63 18 140/108 H 98 Blood Pressure: Hypertensive Pulse: Regular Respiratory Rate: Normal Appearance: Positive for: Well-Appearing, Non-Toxic Pain Distress: None Mental Status: Positive for: Alert and Oriented X 3 - Systems Exam Head: Present: Atraumatic, Normocephalic Pupils: Present: PERRL Extroacular Muscles: Present: EOMI Conjunctiva: Present: Normal Mouth: Present: Moist Mucous Membranes Neck: Present: Normal Range of Motion Respiratory/Chest: Present: Clear to Auscultation, Good Air Exchange. No: Respiratory Distress, Accessory Muscle Use Cardiovascular: Present: Regular Rate and Rhythm, Normal S1, S2. No: Murmurs Abdomen: Present: Tenderness (superpubic tenderness on palpation), Ostomy Tubes (Stoma with colostomy bag to the superpubic region, no blood noted). No: Distention, Peritoneal Signs Genitourinary Male: Present: Penile Swelling, Other (Indwelling haque catheter lodged within the base of penis) Back: Present: Normal Inspection Upper Extremity: Present: Normal Inspection. No: Cyanosis, Edema Lower Extremity: Present: Normal Inspection. No: Edema Neurological: Present: GCS=15, CN II-XII Intact, Speech Normal, Other (Contracted to the right) Skin: Present: Warm, Dry, Normal Color. No: Rashes Psychiatric: Present: Alert, Oriented x 3, Normal Insight, Normal Concentration Medical Decision Making ED Course and Treatment: 03/18/18 20:38 Impression: 52 year old male presents with penile swelling, discharge, and abdominal pain. Plan: -- VBG -- EKG -- Labs -- Chest X-ray -- Blood Culture -- Urine Culture -- Urinalysis --Merrem -- CT ABD & Pelvis -- Reassess and disposition Prior Visits: Notes and results from previous visits were reviewed Progress Notes: 03/18/18 22:11 Labs reviewed with no leukocytosis noted. UA positive for many bacteria and esterases. Updated results shared with patient who is agreeable to staying in the hospital for IV antibiotics. Spoke with Dr. Jones(house staff), who accepts patient under hospitalist service. CT a/p results pending. - Lab Interpretations Lab Results: 03/18/18 21:10 03/18/18 21:10 Lab Results 03/18/18 21:10: Sodium 143, Chloride 105, Potassium 3.2 L, Carbon Dioxide 30, Anion Gap 11, BUN 16, Creatinine 0.9, Est GFR ( Amer) > 60, Est GFR (Non- Af Amer) > 60, Random Glucose 117 H, Calcium 9.0, Phosphorus 2.8, Magnesium 2.0, Total Bilirubin 0.4, AST 13 L D, ALT 14, Alkaline Phosphatase 85, Troponin I < 0.01, NT-Pro-B Natriuret Pep 611 H, Total Protein 8.3, Albumin 4.1, Globulin 4.2, Albumin/Globulin Ratio 1.0 L 03/18/18 21:10: pO2 31, VBG pH 7.34, VBG pCO2 60.0, VBG HCO3 32.4 H, VBG Total CO2 34.2 H, VBG O2 Sat (Calc) 58.0, VBG Base Excess 4.8 H, VBG Potassium 3.2 L, Sodium 144.0, Chloride 105.0, Glucose 115 H, Lactate 1.2, FiO2 21.0, Venous Blood Potassium 3.2 L 03/18/18 21:10: Urine Color Yellow, Urine Appearance Clear, Urine pH 6.5, Ur Specific [place] 1.010, Urine Protein Negative, Urine Glucose (UA) Negative, Urine Ketones Negative, Urine Blood Trace-lysed H, Urine Nitrate Negative, Urine Bilirubin Negative, Urine Urobilinogen 0.2, Ur Leukocyte Esterase Moderate H, Urine RBC 5 - 10 H, Urine WBC 5 - 10 H, Ur Epithelial Cells 6 - 8 H 03/18/18 21:10: PT 13.5 H, INR 1.18, APTT 31.6 03/18/18 21:10: WBC 7.0, RBC 4.73, Hgb 12.4 L, Hct 38.9 L, MCV 82.2, MCH 26.2, MCHC 31.9, RDW 15.2 H, Plt Count 204, MPV 11.6 H, Gran % 75.8 H, Lymph % (Auto) 15.6 L, [place] % (Auto) 6.6 H, Eos % (Auto) 1.9, Baso % (Auto) 0.1, Gran # 5.29, Lymph # (Auto) 1.1 L, [place] # (Auto) 0.5, Eos # (Auto) 0.1, Baso # (Auto) 0.01, ESR 103 H I have reviewed the lab results: Yes - RAD Interpretation Narrative RAD Interpretations (Text): 03/19/18 02:40 CT Abdomen and Pelvis with IV contrast CLINICAL HISTORY: H/O stoma w/ intestinal edema and scrotal swelling TECHNIQUE: Axial computed tomography images of the abdomen and pelvis with intravenous contrast. 1201.42 mGy-cm CONTRAST: With; OMNI 350 100 ml COMPARISON: CT\SD\SR - ABD PELVIS W/O PO OR IV CONT - 08/20/2017 07:27 PM EDT FINDINGS: LUNG BASES: The lung bases appear clear. No pleural effusions are seen. LIVER: Unremarkable. GALLBLADDER AND BILE DUCTS: The gallbladder appears within normal limits. No radioopaque gallstones are seen. No biliary ductal dilatation is evident. PANCREAS: Unremarkable. SPLEEN: Unremarkable. ADRENAL GLANDS: Unremarkable. KIDNEYS, URETERS, AND BLADDER: Diffuse severe bladder wall thickening is noted, exacerbation since the prior study. Exclude malignancy clinically. STOMACH AND BOWEL: Umbilical hernia is noted containing a nonobstructed small bowel, enlarged since the prior study. APPENDIX: No evidence of acute appendicitis on CT examination. PERITONEUM: No free fluid. No free air. LYMPH NODES: No lymphadenopathy is evident. REPRODUCTIVE: Unremarkable as visualized. VASCULATURE: No evidence of abdominal aortic aneurysm. BONES: No aggressive appearing osseous lesion. No acute osseous pathology evident. MISCELLANEOUS: Gallstones are again seen. IVC filter is in place. Haque catheter is in place. Suggestion of urachal diverticulum. IMPRESSION: 1. Umbilical hernia is noted containing a nonobstructed small bowel, enlarged since the prior study. 2. Gallstones are again seen. 3. IVC filter is in place. 4. Haque catheter is in place. 5. Diffuse severe bladder wall thickening is noted, exacerbation since the prior study. Exclude malignancy clinically. 6. Suggestion of urachal diverticulum. Director Volunteer Services: Radiologist - EKG Interpretation EKG Interpretation (Text): 03/19/18 01:19 EKG: Ordered, reviewed, and independently interpreted the EKG. Rate : 62 BPM Rhythm : NSR with intermittent PVCs Interpretation : Prolonged QT interval, No ST-segment elevations. Interpreted by ED Physician: Yes Type: 12 lead EKG - Scribe Statement The provider has reviewed the documentation as recorded by the Yesica Cortez Provider Scribe Attestation: All medical record entries made by the Yesica were at my direction and personally dictated by me. I have reviewed the chart and agree that the record accurately reflects my personal performance of the history, physical exam, medical decision making, and the department course for this patient. I have also personally directed, reviewed, and agree with the discharge instructions and disposition. Disposition/Present on Arrival - Present on Arrival Any Indicators Present on Arrival: Yes History of DVT/PE: Yes History of Uncontrolled Diabetes: No Urinary Catheter: Yes History of Decub. Ulcer: No History Surgical Site Infection Following: None - Disposition Have Diagnosis and Disposition been Completed?: Yes Diagnosis: UTI (urinary tract infection), Penile swelling Disposition: HOSPITALIZED Disposition Time: 22:11 Patient Plan: Admission Condition: GOOD
[2018-03-18 21:21] LABS: VENOUS BLOOD GAS BASE EXCESS 4.8 mmol/L (0.0-2.0); VENOUS BLOOD GAS PO2 31 mm/Hg (30-55); VENOUS BLOOD PH 7.34 (7.32-7.43)
[2018-03-18 21:31] LABS: ALBUMIN 4.1 g/dL (3.0-4.8); ALT/SGPT 14 U/L (7-56); AST/SGOT 13 U/L (17-59); BLOOD UREA NITROGEN 16 mg/dL (7-21); GFR NON-AFRICAN AMERICAN > 60; PH,URINE 6.5 (4.7-8.0); URINE BILIRUBIN NEGATIVE (NEGATIVE); URINE BLOOD TRACE-LYSED (NEGATIVE); URINE GLUCOSE (UA) NEGATIVE (NEGATIVE); URINE LEUKOCYTE ESTERASE MODERATE Leu/uL (NEGATIVE); URINE PROTEIN NEGATIVE mg/dL (<30 mg/dL); URINE UROBILINOGEN 0.2 E.U./dL (<1 E.U./dL)
[2018-03-18 21:33] LABS: BASO # 0.01 K/mm3 (0.0-2.0); BASO % 0.1 % (0.0-3.0); EOS # 0.1 (0.0-0.7); EOS % 1.9 % (1.5-5.0); GRAN # 5.29 (1.4-6.5); GRAN % 75.8 % (50.0-68.0); HEMOGLOBIN 12.4 g/dL (14.0-18.0); LYMPH # 1.1 (1.2-3.4); LYMPH % 15.6 % (22.0-35.0); MEAN CELL VOLUME 82.2 fl (80.0-105.0); MEAN CORPUSCULAR HEMOGLOBIN 26.2 pg (25.0-35.0); MEAN CORPUSCULAR HGB CONC 31.9 g/dl (31.0-37.0); MEAN PLATELET VOLUME 11.6 fl (7.0-11.0); MONO # 0.5 (0.1-0.6); MONO % 6.6 % (1.0-6.0); RBC 4.73 10^6/uL (3.5-6.1); RED CELL DISTRIBUTION WIDTH 15.2 % (11.5-14.5)
[2018-03-18] MEDS ORDERED: Oxycodone/Acetaminophen 5/325 mg Tab PO STA (21:33)
[2018-03-18] MEDS ORDERED: Potassium Chloride 40 mEq/30 ml LIQ UD PO STA (21:34)
[2018-03-18 21:35] LABS: INR 1.18; PARTIAL THROMBOPLASTIN TIME 31.6 Seconds (25.1-36.5); PROTHROMBIN TIME 13.5 SECONDS (9.4-12.5)
[2018-03-18 21:37] LABS: URINE APPEARANCE CLEAR (CLEAR); URINE COLOR YELLOW (YELLOW)
[2018-03-18 21:53] LABS: B-TYPE NATRIURETIC PEPTIDE 611 pg/mL (0-450); TROPONIN I < 0.01 ng/mL
[2018-03-18] MEDS ORDERED: Aztreonam 1 Gm in NS 100mL 100 ML IVPB STA (21:58)
[2018-03-18] MEDS ORDERED: Iohexol 350 MG/100 ML VIAL ONE (23:02)
--- NOTE | 2018-03-19 04:33 | CP.PCM.CON ---
History of Present Illness - History of Present Illness History of Present Illness: General Surgery consult note for Dr. Askew Consulted for Ileostomy/ parastomal hernia Patient is a 52 yr old male with PMH paraplegia since June 2016 s/p spinal abscess, neurogenic bladder, DVT, PE, sacral ulcer who is presenting to [facility] with urological complaints. General surgery has been consulted for evaluation of his ostomy site and ongoing parastomal hernia. he denies any pain at the site, any decrease or difficulty passing gas and stool and denies any other problems with his ostomy care. He indicates that the herniated bowel is easily reducible. He otherwise denies any REINA, CP, SOB, f/c, n/v. PMH: Paraplegia since June 2016, neurogenic bladder, DVT, PE, sacral ulcer PSHx: ostomy, laminectomy, neurogenic bladder with haque, IVC filter, multiple sacral wound debridements Social Hx: cocaine abuse prior, denies and recent ETOH, smoking or drug abuse Allergies: Cephalosporins Review of Systems - Review of Systems All systems: reviewed and no additional remarkable complaints except (as per HPI) Past Patient History - Infectious Disease Hx of Infectious Diseases: None - Past Social History Smoking Status: Former Smoker - CARDIAC Hx Pacemaker: No - PULMONARY Hx Respiratory Disorders: No - NEUROLOGICAL Hx Neurological Disorder: Yes Other/Comment: paraplegic - HEENT Hx HEENT Problems: No - RENAL Hx Chronic Kidney Disease: No - ENDOCRINE/METABOLIC Hx Endocrine Disorders: No - HEMATOLOGICAL/ONCOLOGICAL Hx Cancer: No - INTEGUMENTARY Hx Dermatological Problems: Yes Other/Comment: 05-26-17 PRESSURE SACRAL ULCER-HEALING WOUND BUT HAS 2 OPEN WOUND STAGE 2 1 CM IN DM. RIGHT BUTTOCK PRESSURE ULCER WITH OPEN WOUND SMOOTH EDGES,WOUND VAC AT HOME,NON HEALING WOUND.DEPTH OF 5 CM WITH INDURATION OF 3.5 AT 12 OCLOCK.WOUND BED HAS MOIST BLACK FILM NECROTIC TISSUE. LEFT HEEL HAS A PRESSURE ULCER BLACKENED NECROTIC TISSUE COVERING WHOLE WOUND.MEASURES 3 X 4 CM. - MUSCULOSKELETAL/RHEUMATOLOGICAL Hx Falls: No - GASTROINTESTINAL Hx Gastrointestinal Disorders: Yes (COLOSTOMY LEFT.) Hx Colostomy: Yes - GENITOURINARY/GYNECOLOGICAL Hx Genitourinary Disorders: Yes Hx Incontinence: Yes Other/Comment: has haque and diaper - PSYCHIATRIC Hx Psychophysiologic Disorder: No - SURGICAL HISTORY Hx Mastectomy: No - ANESTHESIA Hx Anesthesia: Yes Hx Anesthesia Reactions: No Hx Malignant Hyperthermia: No Meds Allergies/Adverse Reactions: Allergies Allergy/AdvReac Type Severity Reaction Status Date / Time ceftriaxone [From Rocephin] AdvReac Mild BURNING AT Verified 03/18/18 20:07 IV SITE Cephalosporins AdvReac Mild BURNING AT Verified 03/18/18 20:07 IV SITE vancomycin AdvReac ITCHING Verified 03/18/18 20:07 - Medications Medications: Current Medications Acetaminophen (Tylenol 325mg Tab) 650 mg PO Q6H PRN PRN Reason: Pain, moderate (4-7) Gabapentin (Neurontin) 300 mg PO BID DONAL; Protocol Aztreonam (Azactam 1 Gm) 100 mls @ 100 mls/hr IVPB Q8 DONAL; Protocol Stop: 03/19/18 14:59 Warfarin Sodium (Coumadin) 6 mg PO 1800 DONAL; Protocol Physical Exam - Constitutional Appears: Well, Non-toxic, No Acute Distress - Head Exam Head Exam: ATRAUMATIC, NORMOCEPHALIC - Eye Exam Eye Exam: EOMI - ENT Exam ENT Exam: Mucous Membranes Moist - Respiratory Exam Respiratory Exam: NORMAL BREATHING PATTERN - Cardiovascular Exam Cardiovascular Exam: REGULAR RHYTHM - GI/Abdominal Exam GI & Abdominal Exam: Soft. absent: Distended, Guarding, Tenderness Additional comments: Ostomy in place with appliance well applied no apparent leak, ostomy site is pink patent and productive, parastomal hernia is present with herniation of bowel, easily reducible, nontender, no signs of ischemia or infection - Extremities Exam Extremities exam: Positive for: pedal pulses present. Negative for: calf tenderness, pedal edema Additional comments: lower extremities are contracted bilaterally 2/2 paraplegia - Neurological Exam Neurological exam: Alert, Oriented x3 - Psychiatric Exam Psychiatric exam: Normal Affect, Normal Mood - Skin Skin Exam: Dry, Intact, Normal Color, Warm Results - Vital Signs Recent Vital Signs: Last Vital Signs Temp 98.0 F 03/18/18 23:33 Pulse 59 L 03/18/18 23:33 Resp 16 03/18/18 23:33 BP 132/76 03/18/18 23:33 Pulse Ox 99 03/18/18 23:33 - Labs Result Diagrams: 03/18/18 21:10 03/18/18 21:10 Labs: Laboratory Results - last 24 hr 03/18/18 03/18/18 03/18/18 21:10 21:10 21:10 WBC 7.0 RBC 4.73 Hgb 12.4 L Hct 38.9 L MCV 82.2 MCH 26.2 MCHC 31.9 RDW 15.2 H Plt Count 204 MPV 11.6 H Gran % 75.8 H Lymph % (Auto) 15.6 L [place] % (Auto) 6.6 H Eos % (Auto) 1.9 Baso % (Auto) 0.1 Gran # 5.29 Lymph # (Auto) 1.1 L [place] # (Auto) 0.5 Eos # (Auto) 0.1 Baso # (Auto) 0.01 ESR 103 H PT 13.5 H INR 1.18 APTT 31.6 pO2 VBG pH VBG pCO2 VBG HCO3 VBG Total CO2 VBG O2 Sat (Calc) VBG Base Excess VBG Potassium Sodium Chloride Glucose Lactate FiO2 Potassium Carbon Dioxide Anion Gap BUN Creatinine Est GFR ( Amer) Est GFR (Non-Af Amer) Random Glucose Calcium Phosphorus Magnesium Total Bilirubin AST ALT Alkaline Phosphatase Troponin I NT-Pro-B Natriuret Pep Total Protein Albumin Globulin Albumin/Globulin Ratio Venous Blood Potassium Urine Color Yellow Urine Appearance Clear Urine pH 6.5 Ur Specific [place] 1.010 Urine Protein Negative Urine Glucose (UA) Negative Urine Ketones Negative Urine Blood Trace-lysed H Urine Nitrate Negative Urine Bilirubin Negative Urine Urobilinogen 0.2 Ur Leukocyte Esterase Moderate H Urine RBC 5 - 10 H Urine WBC 5 - 10 H Ur Epithelial Cells 6 - 8 H 03/18/18 03/18/18 21:10 21:10 WBC RBC Hgb Hct MCV MCH MCHC RDW Plt Count MPV Gran % Lymph % (Auto) [place] % (Auto) Eos % (Auto) Baso % (Auto) Gran # Lymph # (Auto) [place] # (Auto) Eos # (Auto) Baso # (Auto) ESR PT INR APTT pO2 31 VBG pH 7.34 VBG pCO2 60.0 VBG HCO3 32.4 H VBG Total CO2 34.2 H VBG O2 Sat (Calc) 58.0 VBG Base Excess 4.8 H VBG Potassium 3.2 L Sodium 144.0 143 Chloride 105.0 105 Glucose 115 H Lactate 1.2 FiO2 21.0 Potassium 3.2 L Carbon Dioxide 30 Anion Gap 11 BUN 16 Creatinine 0.9 Est GFR ( Amer) > 60 Est GFR (Non-Af Amer) > 60 Random Glucose 117 H Calcium 9.0 Phosphorus 2.8 Magnesium 2.0 Total Bilirubin 0.4 AST 13 L D ALT 14 Alkaline Phosphatase 85 Troponin I < 0.01 NT-Pro-B Natriuret Pep 611 H Total Protein 8.3 Albumin 4.1 Globulin 4.2 Albumin/Globulin Ratio 1.0 L Venous Blood Potassium 3.2 L Urine Color Urine Appearance Urine pH Ur Specific [place] Urine Protein Urine Glucose (UA) Urine Ketones Urine Blood Urine Nitrate Urine Bilirubin Urine Urobilinogen Ur Leukocyte Esterase Urine RBC Urine WBC Ur Epithelial Cells Assessment & Plan - Assessment and Plan (Free Text) Assessment: 52 yr old male with parastomal hernia Plan: stoma pink patent productive, ischemia and obstruction unlikely continue stoma/ ostomy care no surgical intervention at this time discussed with Dr. Azar Dubose, PGY 1 - Date & Time Date: 03/19/18 Time: 00:30
--- NOTE | 2018-03-19 05:25 | CP.PCM.HP ---
<MiladRainad - Last Filed: 03/20/18 20:10> History of Present Illness - History of Present Illness History of Present Illness: Mike Stinson, PGY-1 Medicine H&P Note for Dr. Jones: CC: Penile swelling, and pain Pt is a 52 yo M with pmhx of Paraplegia, IVDA, T2 epidural abscess, ileostomy, sacral ulcers, chronic indwelling catheter, DVT (on coumadin), HTN who presents to the ED for abd pain and penile swelling. Pt states that he had his indwelling catheter changed 2 days ago by a family member who is also a nurse. He then reports that he noted his urine to be cloudy and having sediment in the bag. He also noted abdominal pain around his ileostomy site but believes that they are unrelated. He states that he then this morning he noted that his penis was swollen, but had no noted discharge. Pt states that at this time he denies fevers, chills, headache, dizzyness, lightheadedness, CP, SOB, cough, nausea, vomiting, c/d. He admits to abd pain and states that his catheter still has cloudy urine. Pmhx:Paraplegia, IVDA, T2 epidural abscess, ileostomy, sacral ulcers, chronic indwelling catheter, DVT (on coumadin), HTN Pshx:T2 abscess removal, ileostomy placement, sacral wound debridement Meds: coumadin, gabapentin All: Ceftriaxone, cephalosporin - burning at IV site, Vanc - Itching Social: Quit smoking in 2017, 20 yrs 1 ppd before then, denies recent etoh or illicit drug use (hx of IVDA) Fam: Dad: etoh abuse, Mom: DM Present on Admission - Present on Admission Any Indicators Present on Admission: No Review of Systems - Review of Systems Review of Systems: 21 point ROS is reviewed and negative except noted in HPI above. Past Patient History - Infectious Disease Hx of Infectious Diseases: None - Past Social History Smoking Status: Former Smoker - CARDIAC Hx Pacemaker: No - PULMONARY Hx Respiratory Disorders: No - NEUROLOGICAL Hx Neurological Disorder: Yes Other/Comment: paraplegic - HEENT Hx HEENT Problems: No - RENAL Hx Chronic Kidney Disease: No - ENDOCRINE/METABOLIC Hx Endocrine Disorders: No - HEMATOLOGICAL/ONCOLOGICAL Hx Cancer: No - INTEGUMENTARY Hx Dermatological Problems: Yes Other/Comment: 05-26-17 PRESSURE SACRAL ULCER-HEALING WOUND BUT HAS 2 OPEN WOUND STAGE 2 1 CM IN DM. RIGHT BUTTOCK PRESSURE ULCER WITH OPEN WOUND SMOOTH EDGES,WOUND VAC AT HOME,NON HEALING WOUND.DEPTH OF 5 CM WITH INDURATION OF 3.5 AT 12 OCLOCK.WOUND BED HAS MOIST BLACK FILM NECROTIC TISSUE. LEFT HEEL HAS A PRESSURE ULCER BLACKENED NECROTIC TISSUE COVERING WHOLE WOUND.MEASURES 3 X 4 CM. - MUSCULOSKELETAL/RHEUMATOLOGICAL Hx Falls: No - GASTROINTESTINAL Hx Gastrointestinal Disorders: Yes (COLOSTOMY LEFT.) Hx Colostomy: Yes - GENITOURINARY/GYNECOLOGICAL Hx Genitourinary Disorders: Yes Hx Incontinence: Yes Other/Comment: has haque and diaper - PSYCHIATRIC Hx Psychophysiologic Disorder: No - SURGICAL HISTORY Hx Mastectomy: No - ANESTHESIA Hx Anesthesia: Yes Hx Anesthesia Reactions: No Hx Malignant Hyperthermia: No Meds Allergies/Adverse Reactions: Allergies Allergy/AdvReac Type Severity Reaction Status Date / Time ceftriaxone [From Rocephin] AdvReac Mild BURNING AT Verified 03/18/18 20:07 IV SITE Cephalosporins AdvReac Mild BURNING AT Verified 03/18/18 20:07 IV SITE vancomycin AdvReac ITCHING Verified 03/18/18 20:07 Physical Exam - Constitutional Appears: Non-toxic, No Acute Distress - Head Exam Head Exam: ATRAUMATIC, NORMAL INSPECTION, NORMOCEPHALIC - Eye Exam Eye Exam: EOMI, Normal appearance, PERRL - Respiratory Exam Respiratory Exam: Clear to Auscultation Bilateral, NORMAL BREATHING PATTERN. absent: Accessory Muscle Use, Decreased Breath Sounds, Rales, Rhonchi, Wheezes, Respiratory Distress, Stridor - Cardiovascular Exam Cardiovascular Exam: RRR, +S1, +S2. absent: Gallop, Rubs - GI/Abdominal Exam GI & Abdominal Exam: Normal Bowel Sounds, Soft. absent: Firm, Guarding, Tenderness Additional comments: Illeosomty in place, ileostomy is functional as stool and air noted in bad and is pink without signs of necrosis or infection. - Extremities Exam Extremities exam: Positive for: pedal pulses present. Negative for: calf tenderness - Back Exam Back exam: NORMAL INSPECTION. absent: CVA tenderness (L), CVA tenderness (R) - Neurological Exam Neurological exam: Alert, Oriented x3 - Psychiatric Exam Psychiatric exam: Normal Affect, Normal Mood - Skin Skin Exam: Dry, Normal Color, Warm Results - Vital Signs Recent Vital Signs: Last Vital Signs Temp 98.0 F 03/18/18 23:33 Pulse 64 03/19/18 04:27 Resp 20 03/19/18 04:27 BP 132/76 03/18/18 23:33 Pulse Ox 99 03/18/18 23:33 - Labs Result Diagrams: 03/18/18 21:10 03/18/18 21:10 Labs: Laboratory Results - last 24 hr 03/18/18 03/18/18 03/18/18 21:10 21:10 21:10 WBC 7.0 RBC 4.73 Hgb 12.4 L Hct 38.9 L MCV 82.2 MCH 26.2 MCHC 31.9 RDW 15.2 H Plt Count 204 MPV 11.6 H Gran % 75.8 H Lymph % (Auto) 15.6 L [place] % (Auto) 6.6 H Eos % (Auto) 1.9 Baso % (Auto) 0.1 Gran # 5.29 Lymph # (Auto) 1.1 L [place] # (Auto) 0.5 Eos # (Auto) 0.1 Baso # (Auto) 0.01 ESR 103 H PT 13.5 H INR 1.18 APTT 31.6 pO2 VBG pH VBG pCO2 VBG HCO3 VBG Total CO2 VBG O2 Sat (Calc) VBG Base Excess VBG Potassium Sodium Chloride Glucose Lactate FiO2 Potassium Carbon Dioxide Anion Gap BUN Creatinine Est GFR ( Amer) Est GFR (Non-Af Amer) Random Glucose Calcium Phosphorus Magnesium Total Bilirubin AST ALT Alkaline Phosphatase Troponin I NT-Pro-B Natriuret Pep Total Protein Albumin Globulin Albumin/Globulin Ratio Venous Blood Potassium Urine Color Yellow Urine Appearance Clear Urine pH 6.5 Ur Specific [place] 1.010 Urine Protein Negative Urine Glucose (UA) Negative Urine Ketones Negative Urine Blood Trace-lysed H Urine Nitrate Negative Urine Bilirubin Negative Urine Urobilinogen 0.2 Ur Leukocyte Esterase Moderate H Urine RBC 5 - 10 H Urine WBC 5 - 10 H Ur Epithelial Cells 6 - 8 H 03/18/18 03/18/18 21:10 21:10 WBC RBC Hgb Hct MCV MCH MCHC RDW Plt Count MPV Gran % Lymph % (Auto) [place] % (Auto) Eos % (Auto) Baso % (Auto) Gran # Lymph # (Auto) [place] # (Auto) Eos # (Auto) Baso # (Auto) ESR PT INR APTT pO2 31 VBG pH 7.34 VBG pCO2 60.0 VBG HCO3 32.4 H VBG Total CO2 34.2 H VBG O2 Sat (Calc) 58.0 VBG Base Excess 4.8 H VBG Potassium 3.2 L Sodium 144.0 143 Chloride 105.0 105 Glucose 115 H Lactate 1.2 FiO2 21.0 Potassium 3.2 L Carbon Dioxide 30 Anion Gap 11 BUN 16 Creatinine 0.9 Est GFR ( Amer) > 60 Est GFR (Non-Af Amer) > 60 Random Glucose 117 H Calcium 9.0 Phosphorus 2.8 Magnesium 2.0 Total Bilirubin 0.4 AST 13 L D ALT 14 Alkaline Phosphatase 85 Troponin I < 0.01 NT-Pro-B Natriuret Pep 611 H Total Protein 8.3 Albumin 4.1 Globulin 4.2 Albumin/Globulin Ratio 1.0 L Venous Blood Potassium 3.2 L Urine Color Urine Appearance Urine pH Ur Specific [place] Urine Protein Urine Glucose (UA) Urine Ketones Urine Blood Urine Nitrate Urine Bilirubin Urine Urobilinogen Ur Leukocyte Esterase Urine RBC Urine WBC Ur Epithelial Cells Assessment & Plan - Assessment and Plan (Free Text) Assessment: Pt is a 52 yo M with pmhx of Paraplegia, IVDA, T2 epidural abscess, ileostomy, sacral ulcers, chronic indwelling catheter, DVT (on coumadin), HTN who presents to the ED for abd pain and penile swelling. Plan: 1. Penile Swelling: - No discharge noted on exam of external genitalia - Urology consulted - Aztreonam started (due to pt allergy hx) - ID consulted - Testicular u/s pending 2. Abd pain: - Pts ileostomy site does not look infected - GI consulted - Surgery Consulted - Astreonam started 3. Hx of DVT: - Cont home coumadin - Cont to monitor INR 4. PPx: GI: Protonix DVT: Home coumadin Case seen and discussed with Dr. Robert Stinson, PGY-1 <Naun Jones - Last Filed: 03/22/18 14:25> Results - Vital Signs Recent Vital Signs: Last Vital Signs Temp 97.6 F 03/22/18 07:00 Pulse 59 L 03/22/18 07:00 Resp 20 03/22/18 07:00 BP 134/79 03/22/18 07:00 Pulse Ox 99 03/22/18 07:00 - Labs Result Diagrams: 03/22/18 06:45 03/22/18 06:45 Labs: Laboratory Results - last 24 hr 03/22/18 03/22/18 03/22/18 06:45 06:45 06:45 WBC 4.7 RBC 4.69 Hgb 11.9 L Hct 38.0 L MCV 81.0 MCH 25.4 MCHC 31.3 RDW 15.0 H Plt Count 213 MPV 11.5 H Gran % 57.1 Lymph % (Auto) 29.1 [place] % (Auto) 9.8 H Eos % (Auto) 3.6 Baso % (Auto) 0.4 Gran # 2.69 Lymph # (Auto) 1.4 [place] # (Auto) 0.5 Eos # (Auto) 0.2 Baso # (Auto) 0.02 PT 17.1 H INR 1.48 Sodium 141 Potassium 4.2 Chloride 105 Carbon Dioxide 27 Anion Gap 13 BUN 14 Creatinine 0.7 L Est GFR ( Amer) > 60 Est GFR (Non-Af Amer) > 60 Random Glucose 87 Calcium 9.2 Total Bilirubin 0.3 AST 19 ALT 16 Alkaline Phosphatase 80 Total Protein 8.0 Albumin 4.0 Globulin 4.0 Albumin/Globulin Ratio 1.0 L Attending/Attestation - Attestation I have personally seen and examined this patient.: Yes I have fully participated in the care of the patient.: Yes I have reviewed all pertinent clinical information: Yes
[2018-03-19] MEDS: Pantoprazole 40 mg EC Tab PO SCH (06:47)
[2018-03-19] MEDS: Aztreonam 1 Gm in NS 100mL 100 ML IVPB SCH ×3 (06:47→22:00)
[2018-03-19 08:55] LABS: BASO # 0.01 K/mm3 (0.0-2.0); BASO % 0.2 % (0.0-3.0); EOS # 0.2 (0.0-0.7); EOS % 3.7 % (1.5-5.0); GRAN # 2.68 (1.4-6.5); GRAN % 55.1 % (50.0-68.0); HEMOGLOBIN 10.6 g/dL (14.0-18.0); LYMPH # 1.7 (1.2-3.4); MEAN CELL VOLUME 81.3 fl (80.0-105.0); MEAN CORPUSCULAR HEMOGLOBIN 26.1 pg (25.0-35.0); MEAN CORPUSCULAR HGB CONC 32.1 g/dl (31.0-37.0); MEAN PLATELET VOLUME 10.9 fl (7.0-11.0); MONO # 0.3 (0.1-0.6); RBC 4.06 10^6/uL (3.5-6.1); RED CELL DISTRIBUTION WIDTH 15.4 % (11.5-14.5); WHITE BLOOD COUNT 4.9 10^3/uL (4.5-11.0)
--- NOTE | 2018-03-19 09:06 | RAD ---
Date of service: 03/18/2018 HISTORY: Sepsis Patient COMPARISON: 08/22/2017 FINDINGS: LUNGS: No active pulmonary disease. PLEURA: No significant pleural effusion identified, no pneumothorax apparent. CARDIOVASCULAR: No aortic atherosclerotic calcification present. Normal cardiac size. No pulmonary vascular congestion. OSSEOUS STRUCTURES: No significant abnormalities. VISUALIZED UPPER ABDOMEN: Normal. OTHER FINDINGS: None. IMPRESSION: No active disease.
[2018-03-19 09:12] LABS: ALBUMIN 3.5 g/dL (3.0-4.8); ALT/SGPT 18 U/L (7-56); AST/SGOT 14 U/L (17-59); BLOOD UREA NITROGEN 12 mg/dL (7-21); CALCIUM 8.8 mg/dL (8.4-10.5); GFR NON-AFRICAN AMERICAN > 60
--- NOTE | 2018-03-19 09:24 | CARD ---
APPROVED REPORT Date of service: 03/18/2018 EKG Measurement Heart [id number] <Conclusion> Sinus rhythm APC,PVCs, new NSSTW changes Prolonged QTc
--- NOTE | 2018-03-19 10:57 | CT ---
Date of service: 03/19/2018 PROCEDURE: CT Abdomen and Pelvis with contrast HISTORY: H/O stoma w/ intestinal edema and scrotal swelling COMPARISON: 08/20/2017 CT TECHNIQUE: Contrast dose: 100 cc of Omni 350 Radiation dose: Total exam DLP = 1201.42 mGy-cm. This CT exam was performed using one or more of the following dose reduction techniques: Automated exposure control, adjustment of the mA and/or kV according to patient size, and/or use of iterative reconstruction technique. FINDINGS: LOWER THORAX: Unremarkable. LIVER: Unremarkable. No gross lesion or ductal dilatation. GALLBLADDER AND BILE DUCTS: Stones in the neck of the gallbladder without evidence of inflammation PANCREAS: Unremarkable. No gross lesion or ductal dilatation. SPLEEN: Unremarkable. ADRENALS: Unremarkable. No mass. KIDNEYS AND URETERS: Unremarkable. No hydronephrosis. No solid mass. VASCULATURE: Caval filter no aortic atherosclerotic calcification or mural plaque present. BOWEL: Unremarkable. No obstruction. No gross mural thickening. APPENDIX: Normal appendix. PERITONEUM: There is an enlarging ventral para ostial hernia in the upper abdomen. There is no associated obstruction. The defect measures 3.6 cm. The hernia sac measures 7.8 cm transversely by 4 cm AP and 9.3 cm in height. LYMPH NODES: Unremarkable. No enlarged lymph nodes. BLADDER: The bladder is decompressed by Mackenzie catheter. REPRODUCTIVE: Unremarkable. BONES: No acute fracture. OTHER FINDINGS: The report concurs with the preliminary [facility] report IMPRESSION: There is an enlarging ventral para ostial hernia in the upper abdomen. There is no associated obstruction. The defect measures 3.6 cm. The hernia sac measures 7.8 cm transversely by 4 cm AP and 9.3 cm in height. Thick-walled bladder. The bladder is decompressed by Mackenzie catheter.
--- NOTE | 2018-03-19 11:09 | CON ---
DATE: 03/19/2018 REQUESTING PHYSICIAN: Dr. Reynoso. REASON FOR CONSULTATION: I have been asked to see this 52-year-old male, paraplegic for the last 20 months secondary to a T2 spinal abscess, history of gluteal heel ulcers, history of DVT, pulmonary embolus, on warfarin, history of neurogenic bladder requiring an indwelling Mackenzie catheter, who comes to the hospital with penile swelling and urinary tract infection manifested by cloudy urine with sediment. I have been asked to see this patient for abdominal cramps. He currently denies any abdominal pain. He denies any nausea, vomiting. CT scan of the abdomen and pelvis shows gallstones and umbilical hernia without bowel obstruction and markedly thickened urinary bladder with an indwelling Mackenzie catheter. Again, he denies any abdominal pain, nausea, or vomiting. PAST MEDICAL HISTORY: As above. PAST SURGICAL HISTORY: Notable for diverting colostomy due to deep gluteal and sacral ulcers, laminectomy, and IVC filter. SOCIAL HISTORY: The patient is a former cocaine user. He denies any recent use. He consumes alcohol socially. FAMILY HISTORY: Noncontributory. PHYSICAL EXAMINATION: GENERAL: Well-developed male, lying in bed, appearing comfortable. VITAL SIGNS: Revealed a temperature of 98, blood pressure 132/76, heart rate of 59. HEENT: Revealed sclerae to be white. Conjunctivae pink. NECK: Supple. CHEST: Revealed lungs to be clear. HEART: Exam reveals regular rate and rhythm. ABDOMEN: He has a midline transverse colostomy with prolapse of the colon through the colostomy and a parastomal hernia. He also has an umbilical hernia, which is reducible. EXTREMITIES: Show an ulcer on his left heel as well as a stage IV ulcer in his right gluteus. LABORATORY DATA: Reveal white blood cell count 7, hemoglobin 12.4, platelet count of 204,000. Chemistries reveal potassium of 3.2. AST, ALT, alk phos were all normal. IMPRESSION: A 52-year-old male, paraplegic, admitted to the hospital with penile swelling, urinary tract infection, status post transverse colostomy due to multiple gluteal sacral and heel ulcers. He does have a parastomal hernia with herniation of bowel through the stoma. There is no evidence of clinical obstruction. His abdominal cramps have resolved. RECOMMENDATIONS: 1. Continue treatment for urinary tract infection. 2. Urology evaluation for a thickened bladder wall secondary to chronic cystitis versus malignancy in the bladder. No other gastrointestinal workup is planned at this time. Atul Allen MD (Delete this signature block when dictator is a preceptor.) cc: MD Nick (Delete if not dictated.) [facility] # [id number]
--- NOTE | 2018-03-19 14:17 | CP.PCM.CON ---
History of Present Illness - History of Present Illness History of Present Illness: Infectious Disease Consultation: March 19, 2018 52 yo male with extensive medical history including paraplegia, IVDA, T2 epidural abscess, ileostomy, DVT, HTN, and chronic sacral decubiti presenting with abdominal pain and penile swelling. He notes that urine was cloudy. Abdominal pain is around his ileostomy site. R/O UTI. Cultures pending. PMHx: paraplegia, IVDA, T2 epidural abscess, sacral ulcers, DVT, HTN PSHx: ileostomy in place Allergies: Ceftriaxone - hives Vancomycin? (Had reaction but patient also received Zosyn earlier. Rash did appear as soon as infusion started). Social Hx: IVDA Hx, Ex-smoker quit 2017 - 20 pack years Ex-EtOH abuse - stopped 2017 was 6 pack per day. No illicit drug use Active Medications Acetaminophen (Tylenol 325mg Tab) 650 mg PO Q6H PRN PRN Reason: Pain, moderate (4-7) Gabapentin (Neurontin) 300 mg PO BID DONAL; Protocol Last Admin: 03/19/18 10:00 Dose: 300 mg Aztreonam (Azactam 1 Gm) 100 mls @ 100 mls/hr IVPB Q8 DONAL; Protocol Stop: 03/19/18 14:59 Last Admin: 03/19/18 06:47 Dose: 100 mls/hr Pantoprazole Sodium (Protonix Ec Tab) 40 mg PO 0600 DONAL Last Admin: 03/19/18 06:47 Dose: 40 mg Warfarin Sodium (Coumadin) 6 mg PO 1800 DONAL; Protocol Family Hx: None given ROS: no fevers, chills, nausea, vomiting, diarrhea, headaches, dizziness, chest pain, abdominal pain, melena, hematuria, hematemesis, hematochezia, depression, anxiety. Past Patient History - Infectious Disease Hx of Infectious Diseases: None - Past Social History Smoking Status: Former Smoker - CARDIAC Hx Pacemaker: No - PULMONARY Hx Respiratory Disorders: No - NEUROLOGICAL Hx Neurological Disorder: Yes Other/Comment: paraplegic - HEENT Hx HEENT Problems: No - RENAL Hx Chronic Kidney Disease: No - ENDOCRINE/METABOLIC Hx Endocrine Disorders: No - HEMATOLOGICAL/ONCOLOGICAL Hx Cancer: No - INTEGUMENTARY Hx Dermatological Problems: Yes Other/Comment: 05-26-17 PRESSURE SACRAL ULCER-HEALING WOUND BUT HAS 2 OPEN WOUND STAGE 2 1 CM IN DM. RIGHT BUTTOCK PRESSURE ULCER WITH OPEN WOUND SMOOTH EDGES,WOUND VAC AT HOME,NON HEALING WOUND.DEPTH OF 5 CM WITH INDURATION OF 3.5 AT 12 OCLOCK.WOUND BED HAS MOIST BLACK FILM NECROTIC TISSUE. LEFT HEEL HAS A PRESSURE ULCER BLACKENED NECROTIC TISSUE COVERING WHOLE WOUND.MEASURES 3 X 4 CM. - MUSCULOSKELETAL/RHEUMATOLOGICAL Hx Falls: No - GASTROINTESTINAL Hx Gastrointestinal Disorders: Yes (COLOSTOMY LEFT.) Hx Colostomy: Yes - GENITOURINARY/GYNECOLOGICAL Hx Genitourinary Disorders: Yes Hx Incontinence: Yes Other/Comment: has haque and diaper - PSYCHIATRIC Hx Psychophysiologic Disorder: No - SURGICAL HISTORY Hx Mastectomy: No - ANESTHESIA Hx Anesthesia: Yes Hx Anesthesia Reactions: No Hx Malignant Hyperthermia: No Meds Allergies/Adverse Reactions: Allergies Allergy/AdvReac Type Severity Reaction Status Date / Time ceftriaxone [From Rocephin] AdvReac Mild BURNING AT Verified 03/18/18 20:07 IV SITE Cephalosporins AdvReac Mild BURNING AT Verified 03/18/18 20:07 IV SITE vancomycin AdvReac ITCHING Verified 03/18/18 20:07 - Medications Medications: Current Medications Acetaminophen (Tylenol 325mg Tab) 650 mg PO Q6H PRN PRN Reason: Pain, moderate (4-7) Gabapentin (Neurontin) 300 mg PO BID DONAL; Protocol Last Admin: 03/19/18 10:00 Dose: 300 mg Aztreonam (Azactam 1 Gm) 100 mls @ 100 mls/hr IVPB Q8 DONAL; Protocol Stop: 03/19/18 14:59 Last Admin: 03/19/18 06:47 Dose: 100 mls/hr Pantoprazole Sodium (Protonix Ec Tab) 40 mg PO 0600 DONAL Last Admin: 03/19/18 06:47 Dose: 40 mg Warfarin Sodium (Coumadin) 6 mg PO 1800 DONAL; Protocol Physical Exam - Constitutional Appears: Non-toxic, No Acute Distress, Chronically Ill - Head Exam Head Exam: ATRAUMATIC, NORMOCEPHALIC - Eye Exam Eye Exam: EOMI, PERRL Pupil Exam: NORMAL ACCOMODATION, PERRL - ENT Exam ENT Exam: Mucous Membranes Moist, Normal External Ear Exam, TM's Normal Bilaterally - Cardiovascular Exam Cardiovascular Exam: REGULAR RHYTHM, RRR, +S1, +S2 - GI/Abdominal Exam GI & Abdominal Exam: Normal Bowel Sounds, Soft. absent: Distended, Tenderness Additional comments: Illeosomty in place, ileostomy is functional as stool and air noted in bad and is pink without signs of necrosis or infection. - Extremities Exam Extremities exam: Positive for: joint swelling, pedal edema - Back Exam Back exam: NORMAL INSPECTION - Neurological Exam Neurological exam: Alert, CN II-XII Intact, Oriented x3 - Psychiatric Exam Psychiatric exam: Normal Affect, Normal Mood - Skin Skin Exam: Normal Color, Warm Additional comments: As above. Results - Vital Signs Recent Vital Signs: Last Vital Signs Temp 98 F 03/19/18 06:00 Pulse 95 H 03/19/18 06:00 Resp 20 03/19/18 06:00 BP 108/66 03/19/18 06:00 Pulse Ox 98 03/19/18 06:00 - Labs Result Diagrams: 03/19/18 08:50 03/19/18 08:50 Labs: Laboratory Results - last 24 hr 03/18/18 03/18/18 03/18/18 21:10 21:10 21:10 WBC 7.0 RBC 4.73 Hgb 12.4 L Hct 38.9 L MCV 82.2 MCH 26.2 MCHC 31.9 RDW 15.2 H Plt Count 204 MPV 11.6 H Gran % 75.8 H Lymph % (Auto) 15.6 L [place] % (Auto) 6.6 H Eos % (Auto) 1.9 Baso % (Auto) 0.1 Gran # 5.29 Lymph # (Auto) 1.1 L [place] # (Auto) 0.5 Eos # (Auto) 0.1 Baso # (Auto) 0.01 ESR 103 H PT 13.5 H INR 1.18 APTT 31.6 pO2 VBG pH VBG pCO2 VBG HCO3 VBG Total CO2 VBG O2 Sat (Calc) VBG Base Excess VBG Potassium Sodium Chloride Glucose Lactate FiO2 Potassium Carbon Dioxide Anion Gap BUN Creatinine Est GFR ( Amer) Est GFR (Non-Af Amer) Random Glucose Calcium Phosphorus Magnesium Total Bilirubin AST ALT Alkaline Phosphatase Troponin I NT-Pro-B Natriuret Pep Total Protein Albumin Globulin Albumin/Globulin Ratio Venous Blood Potassium Urine Color Yellow Urine Appearance Clear Urine pH 6.5 Ur Specific [place] 1.010 Urine Protein Negative Urine Glucose (UA) Negative Urine Ketones Negative Urine Blood Trace-lysed H Urine Nitrate Negative Urine Bilirubin Negative Urine Urobilinogen 0.2 Ur Leukocyte Esterase Moderate H Urine RBC 5 - 10 H Urine WBC 5 - 10 H Ur Epithelial Cells 6 - 8 H 03/18/18 03/18/18 03/19/18 21:10 21:10 08:50 WBC 4.9 D RBC 4.06 Hgb 10.6 L Hct 33.0 L MCV 81.3 MCH 26.1 MCHC 32.1 RDW 15.4 H Plt Count 180 MPV 10.9 Gran % 55.1 Lymph % (Auto) 34.0 [place] % (Auto) 7.0 H Eos % (Auto) 3.7 Baso % (Auto) 0.2 Gran # 2.68 Lymph # (Auto) 1.7 [place] # (Auto) 0.3 Eos # (Auto) 0.2 Baso # (Auto) 0.01 ESR PT INR APTT pO2 31 VBG pH 7.34 VBG pCO2 60.0 VBG HCO3 32.4 H VBG Total CO2 34.2 H VBG O2 Sat (Calc) 58.0 VBG Base Excess 4.8 H VBG Potassium 3.2 L Sodium 144.0 143 Chloride 105.0 105 Glucose 115 H Lactate 1.2 FiO2 21.0 Potassium 3.2 L Carbon Dioxide 30 Anion Gap 11 BUN 16 Creatinine 0.9 Est GFR ( Amer) > 60 Est GFR (Non-Af Amer) > 60 Random Glucose 117 H Calcium 9.0 Phosphorus 2.8 Magnesium 2.0 Total Bilirubin 0.4 AST 13 L D ALT 14 Alkaline Phosphatase 85 Troponin I < 0.01 NT-Pro-B Natriuret Pep 611 H Total Protein 8.3 Albumin 4.1 Globulin 4.2 Albumin/Globulin Ratio 1.0 L Venous Blood Potassium 3.2 L Urine Color Urine Appearance Urine pH Ur Specific [place] Urine Protein Urine Glucose (UA) Urine Ketones Urine Blood Urine Nitrate Urine Bilirubin Urine Urobilinogen Ur Leukocyte Esterase Urine RBC Urine WBC Ur Epithelial Cells 03/19/18 08:50 WBC RBC Hgb Hct MCV MCH MCHC RDW Plt Count MPV Gran % Lymph % (Auto) [place] % (Auto) Eos % (Auto) Baso % (Auto) Gran # Lymph # (Auto) [place] # (Auto) Eos # (Auto) Baso # (Auto) ESR PT INR APTT pO2 VBG pH VBG pCO2 VBG HCO3 VBG Total CO2 VBG O2 Sat (Calc) VBG Base Excess VBG Potassium Sodium 141 Chloride 107 Glucose Lactate FiO2 Potassium 3.4 L Carbon Dioxide 28 Anion Gap 10 BUN 12 Creatinine 0.7 L Est GFR ( Amer) > 60 Est GFR (Non-Af Amer) > 60 Random Glucose 111 H Calcium 8.8 Phosphorus Magnesium Total Bilirubin 0.4 AST 14 L ALT 18 Alkaline Phosphatase 71 Troponin I NT-Pro-B Natriuret Pep Total Protein 7.2 Albumin 3.5 Globulin 3.7 Albumin/Globulin Ratio 1.0 L Venous Blood Potassium Urine Color Urine Appearance Urine pH Ur Specific [place] Urine Protein Urine Glucose (UA) Urine Ketones Urine Blood Urine Nitrate Urine Bilirubin Urine Urobilinogen Ur Leukocyte Esterase Urine RBC Urine WBC Ur Epithelial Cells Assessment & Plan - Assessment and Plan (Free Text) Assessment: 52 yo male with paraplegia, HTN, history of T2 epidural abscess, ileostomy, DVT, and PCN allergy. Started on Aztreonam for coverage. Patient with issues with Vancomycin as well. Testicular ultrasound pending. May need Zyvox or Daptomycin. Supportive care. Thank you for allowing me to participate in the care of the patient, we will follow with you.
[2018-03-19] MEDS ORDERED: Enoxaparin 40 mg Syringe SC STA (15:01)
[2018-03-20] MEDS: Pantoprazole 40 mg EC Tab PO SCH (05:24)
[2018-03-20] MEDS: Aztreonam 1 Gm in NS 100mL 100 ML IVPB SCH ×3 (05:24→22:17)
--- NOTE | 2018-03-20 07:09 | CP.PCM.PN ---
<Fransisco Colin Carlos - Last Filed: 03/20/18 16:29> Subjective - Date & Time of Evaluation Date of Evaluation: 03/20/18 Time of Evaluation: 07:09 - Subjective Subjective: Resident Progress Note for Hospitalist Service Patient examined at bedside. No acute events overnight. Patient is resting comfortably and offers no complaints. Denies fevers, chills, chest pain, shortness of breath, abdominal pain. Objective - Vital Signs/Intake and Output Vital Signs (last 24 hours): Temp Pulse Resp BP Pulse Ox 98.8 F 68 20 130/80 99 03/20/18 00:00 03/20/18 00:00 03/19/18 22:00 03/19/18 22:00 03/19/18 22:00 - Medications Medications: Current Medications Acetaminophen (Tylenol 325mg Tab) 650 mg PO Q6H PRN PRN Reason: Pain, moderate (4-7) Last Admin: 03/19/18 21:59 Dose: 650 mg Gabapentin (Neurontin) 300 mg PO BID [facility]; Protocol Last Admin: 03/19/18 17:14 Dose: 300 mg Aztreonam (Azactam 1 Gm) 100 mls @ 100 mls/hr IVPB Q8 [facility]; Protocol Last Admin: 03/20/18 05:24 Dose: 100 mls/hr Pantoprazole Sodium (Protonix Ec Tab) 40 mg PO 0600 [facility] Last Admin: 03/20/18 05:24 Dose: 40 mg Warfarin Sodium (Coumadin) 5 mg PO 1800 [facility]; Protocol Last Admin: 03/19/18 17:14 Dose: 5 mg - Labs Labs: 03/19/18 08:50 03/19/18 08:50 PT 13.5 SECONDS (9.4-12.5) H 03/18/18 21:10 INR 1.18 03/18/18 21:10 APTT 31.6 Seconds (25.1-36.5) 03/18/18 21:10 - Additional Findings Additional findings: - Constitutional Appears: Non-toxic, No Acute Distress - Head Exam Head Exam: ATRAUMATIC, NORMAL INSPECTION, NORMOCEPHALIC - Eye Exam Eye Exam: EOMI, Normal appearance, PERRL - Respiratory Exam Respiratory Exam: Clear to Auscultation Bilateral, NORMAL BREATHING PATTERN. absent: Accessory Muscle Use, Decreased Breath Sounds - Cardiovascular Exam Cardiovascular Exam: RRR, +S1, +S2. absent: Gallop, Rubs - GI/Abdominal Exam GI & Abdominal Exam: Normal Bowel Sounds, Soft. absent: Firm, Guarding, Tenderness Additional comments: Ileosomty in place - Exam Exam: Mackenzie in place draining herb urine - Extremities Exam Extremities exam: Positive for: pedal pulses present. Negative for: calf tenderness - Back Exam Back exam: NORMAL INSPECTION. absent: CVA tenderness (L), CVA tenderness (R) - Neurological Exam Neurological exam: Alert, Oriented x3 - Psychiatric Exam Psychiatric exam: Normal Affect, Normal Mood - Skin Skin Exam: Dry, Normal Color, Warm Assessment and Plan - Assessment and Plan (Free Text) Assessment: Pt is a 52 yo M with pmhx of Paraplegia, IVDA, T2 epidural abscess, ileostomy, sacral ulcers, chronic indwelling catheter, DVT (on coumadin), HTN who presents to the ED for abd pain and penile swelling. Plan: Penile swelling - Plan for suprapubic catheter insertion as per urology recs - Aztreonam 1 gram IV Q8H - Groin wound culture and UCx prelim gram neg doug - ID consulted. Appreciate recs. - Testicular u/s unable to be done due to patient's contractures Abdominal pain - Abd/pelvis CT shows enlarging ventral para ostial hernia in upper abdomen, no associated obstruction, thick-walled bladder - GI consulted. Appreciate recs. - No surgical intervention indicated at this time as per surgical team History of DVT - Continue home coumadin - INR subtherapeutic, increased dosage to 7.5 mg PO daily PPX GI: Protonix 40 mg PO daily DVT: coumadin Case seen and discussed with Dr. Ameya Colin PGY-1 <Miky Hou - Last Filed: 03/20/18 18:49> Objective - Vital Signs/Intake and Output Vital Signs (last 24 hours): Temp Pulse Resp BP Pulse Ox 97.9 F 63 20 154/99 H 98 03/20/18 14:00 03/20/18 14:00 03/20/18 14:00 03/20/18 14:00 03/20/18 14:00 Intake and Output: 03/20/18 03/20/18 06:59 18:59 Intake Total 1060 Output Total 1000 Balance 60 - Medications Medications: Current Medications Acetaminophen (Tylenol 325mg Tab) 650 mg PO Q6H PRN PRN Reason: Pain, moderate (4-7) Last Admin: 03/20/18 13:19 Dose: 650 mg Gabapentin (Neurontin) 300 mg PO BID [facility]; Protocol Last Admin: 03/20/18 17:22 Dose: 300 mg Aztreonam (Azactam 1 Gm) 100 mls @ 100 mls/hr IVPB Q8 [facility]; Protocol Last Admin: 03/20/18 13:04 Dose: 100 mls/hr Pantoprazole Sodium (Protonix Ec Tab) 40 mg PO 0600 [facility] Last Admin: 03/20/18 05:24 Dose: 40 mg Warfarin Sodium (Coumadin) 7.5 mg PO 1800 [facility]; Protocol Last Admin: 03/20/18 17:22 Dose: 7.5 mg - Labs Labs: 03/20/18 08:30 03/20/18 06:00 PT 13.2 SECONDS (9.4-12.5) H 03/20/18 08:00 INR 1.14 03/20/18 08:00 APTT 31.6 Seconds (25.1-36.5) 03/18/18 21:10 Attending/Attestation - Attestation I have personally seen and examined this patient.: Yes I have fully participated in the care of the patient.: Yes I have reviewed all pertinent clinical information, including history, physical exam and plan: Yes Notes (Text): 03/20/18 18:37 52 year old male with past medical history of IVDA, paraplegia, epidural abscess, sacral ulcer, DVT, hypertension, ileostomy and chronic indwelling catheter who presented with complaint of penile swelling and suprapubic pain. He was started on iv antibiotics for UTI. UCx and WCx is growing gram negative rods. ID is following. Urology is also following and recommended suprapubic catheter. CT abd/pelvis showed enlarging ventral para ostial hernia and thick walled bladder. GI and surgery are following and recommended conservative management. Patient is on coumadin for DVT. Dose was increased secondary to subtherapeutic INR secondary to noncompliance at home. Miky Hou MD Hospitalist.
[2018-03-20 08:54] LABS: BASO # 0.01 K/mm3 (0.0-2.0); BASO % 0.2 % (0.0-3.0); EOS # 0.2 (0.0-0.7); EOS % 3.7 % (1.5-5.0); GRAN # 2.08 (1.4-6.5); GRAN % 48.7 % (50.0-68.0); HEMOGLOBIN 11.1 g/dL (14.0-18.0); LYMPH # 1.6 (1.2-3.4); LYMPH % 38.1 % (22.0-35.0); MEAN CELL VOLUME 81.6 fl (80.0-105.0); MEAN CORPUSCULAR HEMOGLOBIN 25.5 pg (25.0-35.0); MEAN CORPUSCULAR HGB CONC 31.3 g/dl (31.0-37.0); MEAN PLATELET VOLUME 11.9 fl (7.0-11.0); MONO # 0.4 (0.1-0.6); MONO % 9.3 % (1.0-6.0); RBC 4.35 10^6/uL (3.5-6.1); RED CELL DISTRIBUTION WIDTH 15.1 % (11.5-14.5); WHITE BLOOD COUNT 4.3 10^3/uL (4.5-11.0)
[2018-03-20 09:04] LABS: INR 1.14; PROTHROMBIN TIME 13.2 SECONDS (9.4-12.5)
[2018-03-20 09:28] LABS: ALBUMIN 3.7 g/dL (3.0-4.8); ALT/SGPT 15 U/L (7-56); AST/SGOT 19 U/L (17-59); BLOOD UREA NITROGEN 12 mg/dL (7-21); GFR NON-AFRICAN AMERICAN > 60
--- NOTE | 2018-03-20 16:47 | CP.PCM.PN ---
Subjective - Date & Time of Evaluation Date of Evaluation: 03/20/18 Time of Evaluation: 15:15 - Subjective Subjective: Infectious Disease Follow Up: March 20, 2018 52 yo male with extensive medical history including paraplegia, IVDA, T2 epidural abscess, ileostomy, DVT, HTN, and chronic sacral decubiti presenting with abdominal pain and penile swelling. He notes that urine was cloudy. Abdominal pain is around his ileostomy site. R/O UTI. Cultures pending. Erythema has resolved. Swelling still present. Objective - Vital Signs/Intake and Output Vital Signs (last 24 hours): Temp Pulse Resp BP Pulse Ox 97.9 F 63 20 154/99 H 98 03/20/18 14:00 03/20/18 14:00 03/20/18 14:00 03/20/18 14:00 03/20/18 14:00 - Medications Medications: Current Medications Acetaminophen (Tylenol 325mg Tab) 650 mg PO Q6H PRN PRN Reason: Pain, moderate (4-7) Last Admin: 03/20/18 13:19 Dose: 650 mg Gabapentin (Neurontin) 300 mg PO BID [facility]; Protocol Last Admin: 03/20/18 10:36 Dose: 300 mg Aztreonam (Azactam 1 Gm) 100 mls @ 100 mls/hr IVPB Q8 [facility]; Protocol Last Admin: 03/20/18 13:04 Dose: 100 mls/hr Pantoprazole Sodium (Protonix Ec Tab) 40 mg PO 0600 [facility] Last Admin: 03/20/18 05:24 Dose: 40 mg Warfarin Sodium (Coumadin) 7.5 mg PO 1800 [facility]; Protocol - Labs Labs: 03/20/18 08:30 03/20/18 06:00 PT 13.2 SECONDS (9.4-12.5) H 03/20/18 08:00 INR 1.14 03/20/18 08:00 APTT 31.6 Seconds (25.1-36.5) 03/18/18 21:10 - Constitutional Appears: Non-toxic, No Acute Distress, Chronically Ill - Head Exam Head Exam: ATRAUMATIC, NORMOCEPHALIC - Eye Exam Eye Exam: EOMI, PERRL Pupil Exam: NORMAL ACCOMODATION, PERRL - ENT Exam ENT Exam: Mucous Membranes Moist, Normal External Ear Exam, TM's Normal Bilaterally - Neck Exam Neck Exam: Full ROM, Normal Inspection - Respiratory Exam Respiratory Exam: Clear to Ausculation Bilateral, NORMAL BREATHING PATTERN. absent: Rales, Rhonchi, Wheezes - Cardiovascular Exam Cardiovascular Exam: REGULAR RHYTHM, RRR, +S1, +S2 - GI/Abdominal Exam GI & Abdominal Exam: Soft, Normal Bowel Sounds. absent: Distended, Tenderness Additional comments: Ileostomy in place, ileostomy is functional as stool and air noted in bad and is pink without signs of necrosis or infection. - Extremities Exam Extremities Exam: absent: Joint Swelling, Pedal Edema - Neurological Exam Neurological Exam: Alert, Awake, CN II-XII Intact, Oriented x3 - Psychiatric Exam Psychiatric exam: Normal Affect, Normal Mood - Skin Skin Exam: Intact, Normal Color Additional comments: As above. Assessment and Plan - Assessment and Plan (Free Text) Assessment: 52 yo male with paraplegia, HTN, history of T2 epidural abscess, ileostomy, DVT, and PCN allergy. Started on Aztreonam for coverage. Patient with issues with Vancomycin as well. Testicular ultrasound pending. Noted that urine and sacral wound cultures showing gram negative rods. Awaiting sensitivities and identification. Supportive care. Thank you for allowing me to participate in the care of the patient, we will follow with you.
[2018-03-21] MEDS: Aztreonam 1 Gm in NS 100mL 100 ML IVPB SCH ×3 (05:15→22:02)
[2018-03-21] MEDS: Pantoprazole 40 mg EC Tab PO SCH (05:15)
[2018-03-21 07:34] LABS: BASO # 0.02 K/mm3 (0.0-2.0); BASO % 0.4 % (0.0-3.0); EOS # 0.2 (0.0-0.7); EOS % 3.3 % (1.5-5.0); GRAN # 2.56 (1.4-6.5); GRAN % 53.2 % (50.0-68.0); HEMOGLOBIN 12.2 g/dL (14.0-18.0); LYMPH # 1.7 (1.2-3.4); LYMPH % 34.6 % (22.0-35.0); MEAN CORPUSCULAR HEMOGLOBIN 25.8 pg (25.0-35.0); MEAN CORPUSCULAR HGB CONC 31.9 g/dl (31.0-37.0); MEAN PLATELET VOLUME 11.2 fl (7.0-11.0); MONO # 0.4 (0.1-0.6); MONO % 8.5 % (1.0-6.0); RBC 4.73 10^6/uL (3.5-6.1); RED CELL DISTRIBUTION WIDTH 14.8 % (11.5-14.5); WHITE BLOOD COUNT 4.8 10^3/uL (4.5-11.0)
--- NOTE | 2018-03-21 07:44 | PCM.URO ---
Urology Progress Note - Objective Lab Results Last 24 Hours: Laboratory Results - last 24 hr 03/20/18 03/20/18 03/20/18 06:00 08:00 08:30 WBC 4.3 L RBC 4.35 Hgb 11.1 L Hct 35.5 L MCV 81.6 MCH 25.5 MCHC 31.3 RDW 15.1 H Plt Count 194 MPV 11.9 H Gran % 48.7 L Lymph % (Auto) 38.1 H [place] % (Auto) 9.3 H Eos % (Auto) 3.7 Baso % (Auto) 0.2 Gran # 2.08 Lymph # (Auto) 1.6 [place] # (Auto) 0.4 Eos # (Auto) 0.2 Baso # (Auto) 0.01 PT 13.2 H INR 1.14 Sodium 139 Potassium 3.5 L Chloride 105 Carbon Dioxide 27 Anion Gap 11 BUN 12 Creatinine 0.6 L Est GFR ( Amer) > 60 Est GFR (Non-Af Amer) > 60 Random Glucose 79 Calcium 9.0 Total Bilirubin 0.3 AST 19 ALT 15 Alkaline Phosphatase 75 Total Protein 7.3 Albumin 3.7 Globulin 3.7 Albumin/Globulin Ratio 1.0 L 03/21/18 07:00 WBC 4.8 RBC 4.73 Hgb 12.2 L Hct 38.3 L MCV 81.0 MCH 25.8 MCHC 31.9 RDW 14.8 H Plt Count 196 MPV 11.2 H Gran % 53.2 Lymph % (Auto) 34.6 [place] % (Auto) 8.5 H Eos % (Auto) 3.3 Baso % (Auto) 0.4 Gran # 2.56 Lymph # (Auto) 1.7 [place] # (Auto) 0.4 Eos # (Auto) 0.2 Baso # (Auto) 0.02 PT INR Sodium Potassium Chloride Carbon Dioxide Anion Gap BUN Creatinine Est GFR ( Amer) Est GFR (Non-Af Amer) Random Glucose Calcium Total Bilirubin AST ALT Alkaline Phosphatase Total Protein Albumin Globulin Albumin/Globulin Ratio Intake & Output: Intake & Output 03/20/18 03/21/18 03/21/18 18:59 06:59 18:59 Intake Total 1060 Output Total 1000 1200 Balance 60 -1200 Intake: Oral 960 Other 100 Output: Urine 1000 1200 Urethral (Mackenzie) 1000 1200 Other: # Bowel Movements 2 Vital Signs: Vital Signs - 24 hr 03/20/18 03/20/18 03/21/18 14:00 22:00 06:00 Temperature 97.9 F 97.8 F 97.9 F Pulse Rate 63 60 54 L Respiratory 20 16 20 Rate Blood Pressure 154/99 H 128/87 140/85 O2 Sat by Pulse 98 97 98 Oximetry - Plan Wound Care: Yes (from gu standpoint will need spt/ see previous notes)
[2018-03-21 07:48] LABS: ALBUMIN 3.9 g/dL (3.0-4.8); ALT/SGPT 18 U/L (7-56); AST/SGOT 16 U/L (17-59); BLOOD UREA NITROGEN 11 mg/dL (7-21); CALCIUM 9.2 mg/dL (8.4-10.5); GFR NON-AFRICAN AMERICAN > 60; INR 1.15; PROTHROMBIN TIME 13.3 SECONDS (9.4-12.5)
--- NOTE | 2018-03-21 10:49 | CP.PCM.PN ---
<Fransisco Colin L - Last Filed: 03/21/18 15:16> Subjective - Date & Time of Evaluation Date of Evaluation: 03/21/18 Time of Evaluation: 10:49 - Subjective Subjective: Resident Progress Note for Hospitalist Service Patient was examined at bedside. No acute events overnight. Denies fevers, chills, chest pain, shortness of breath, abdominal pain. Objective - Vital Signs/Intake and Output Vital Signs (last 24 hours): Temp Pulse Resp BP Pulse Ox 97.9 F 54 L 20 140/85 98 03/21/18 06:00 03/21/18 06:00 03/21/18 06:00 03/21/18 06:00 03/21/18 06:00 Intake and Output: 03/21/18 03/21/18 06:59 18:59 Output Total 1200 Balance -1200 - Medications Medications: Current Medications Acetaminophen (Tylenol 325mg Tab) 650 mg PO Q6H PRN PRN Reason: Pain, moderate (4-7) Last Admin: 03/20/18 22:26 Dose: 650 mg Gabapentin (Neurontin) 300 mg PO BID [facility]; Protocol Last Admin: 03/21/18 10:08 Dose: 300 mg Aztreonam (Azactam 1 Gm) 100 mls @ 100 mls/hr IVPB Q8 [facility]; Protocol Last Admin: 03/21/18 05:15 Dose: 100 mls/hr Pantoprazole Sodium (Protonix Ec Tab) 40 mg PO 0600 [facility] Last Admin: 03/21/18 05:15 Dose: 40 mg Warfarin Sodium (Coumadin) 10 mg PO 1800 [facility]; Protocol - Labs Labs: 03/21/18 07:00 03/21/18 07:00 PT 13.3 SECONDS (9.4-12.5) H 03/21/18 07:00 INR 1.15 03/21/18 07:00 APTT 31.6 Seconds (25.1-36.5) 03/18/18 21:10 - Additional Findings Additional findings: - Constitutional Appears: Non-toxic, No Acute Distress - Head Exam Head Exam: ATRAUMATIC, NORMAL INSPECTION, NORMOCEPHALIC - Eye Exam Eye Exam: EOMI, Normal appearance, PERRL - Respiratory Exam Respiratory Exam: Clear to Auscultation Bilateral, NORMAL BREATHING PATTERN. absent: Accessory Muscle Use, Decreased Breath Sounds - Cardiovascular Exam Cardiovascular Exam: RRR, +S1, +S2. absent: Gallop, Rubs - GI/Abdominal Exam GI & Abdominal Exam: Normal Bowel Sounds, Soft. absent: Firm, Guarding, Tenderness Additional comments: Ileosomty in place - Exam Exam: Mackenzie in place draining herb urine - Extremities Exam Extremities exam: Positive for: pedal pulses present. Negative for: calf tenderness - Back Exam Back exam: NORMAL INSPECTION. absent: CVA tenderness (L), CVA tenderness (R) - Neurological Exam Neurological exam: Alert, Oriented x3 - Psychiatric Exam Psychiatric exam: Normal Affect, Normal Mood - Skin Skin Exam: Dry, Normal Color, Warm Assessment and Plan - Assessment and Plan (Free Text) Assessment: Pt is a 52 yo M with pmhx of Paraplegia, IVDA, T2 epidural abscess, ileostomy, sacral ulcers, chronic indwelling catheter, DVT (on coumadin), HTN who presents to the ED for abd pain and penile swelling. Plan: Penile swelling - Plan for suprapubic catheter insertion as per urology recs - Aztreonam 1 gram IV Q8H - Groin wound culture and UCx shows proteus mirabilis - ID consulted. Appreciate recs. - Testicular u/s unable to be done due to patient's contractures Abdominal pain - Abd/pelvis CT shows enlarging ventral para ostial hernia in upper abdomen, no associated obstruction, thick-walled bladder - GI consulted. Appreciate recs. - No surgical intervention indicated at this time as per surgical team History of DVT - Continue home coumadin - INR subtherapeutic, increased dosage to 7.5 mg PO daily PPX GI: Protonix 40 mg PO daily DVT: coumadin Case seen and discussed with Dr. Ameya Colin PGY-1 <Miky Hou - Last Filed: 03/21/18 15:47> Objective - Vital Signs/Intake and Output Vital Signs (last 24 hours): Temp Pulse Resp BP Pulse Ox 97.6 F 54 L 18 115/71 99 03/21/18 14:00 03/21/18 14:00 03/21/18 14:00 03/21/18 14:00 03/21/18 14:00 Intake and Output: 03/21/18 03/21/18 06:59 18:59 Output Total 1200 Balance -1200 - Medications Medications: Current Medications Acetaminophen (Tylenol 325mg Tab) 650 mg PO Q6H PRN PRN Reason: Pain, moderate (4-7) Last Admin: 03/21/18 13:55 Dose: 650 mg Baclofen (Lioresal) 20 mg PO BID [facility] Gabapentin (Neurontin) 300 mg PO BID [facility]; Protocol Last Admin: 03/21/18 10:08 Dose: 300 mg Aztreonam (Azactam 1 Gm) 100 mls @ 100 mls/hr IVPB Q8 [facility]; Protocol Last Admin: 03/21/18 13:54 Dose: 100 mls/hr Pantoprazole Sodium (Protonix Ec Tab) 40 mg PO 0600 [facility] Last Admin: 03/21/18 05:15 Dose: 40 mg Warfarin Sodium (Coumadin) 10 mg PO 1800 [facility]; Protocol - Labs Labs: 03/21/18 07:00 03/21/18 07:00 PT 13.3 SECONDS (9.4-12.5) H 03/21/18 07:00 INR 1.15 03/21/18 07:00 APTT 31.6 Seconds (25.1-36.5) 03/18/18 21:10 Attending/Attestation - Attestation I have personally seen and examined this patient.: Yes I have fully participated in the care of the patient.: Yes I have reviewed all pertinent clinical information, including history, physical exam and plan: Yes Notes (Text): 03/21/18 15:46 52 year old male with past medical history of IVDA, paraplegia, epidural abscess, sacral ulcer, DVT, hypertension, ileostomy and chronic indwelling catheter who presented with complaint of penile swelling and suprapubic pain. He was started on iv antibiotics for UTI. UCx is growing proteus mirabilis and WCx is growing proteus mirabilis and group c streptococcus. ID is following. Urology is also following and recommended suprapubic catheter. CT abd/pelvis showed enlarging ventral para ostial hernia and thick walled bladder. GI and surgery are following and recommended conservative management. Patient is on coumadin for DVT. Dose was increased again today secondary to subtherapeutic INR secondary to noncompliance at home. Miky Hou MD Hospitalist.
--- NOTE | 2018-03-21 12:43 | US ---
Date of service: 03/21/2018 HISTORY: Penile swelling TECHNIQUE: Realtime sonography through the scrotum with color and doppler flow. COMPARISON: None Available. FINDINGS: RIGHT TESTICLE: Measures 2.7 x 3.4 x 5 cm. Normal echotexture and flow. RIGHT EPIDIDYMIS: Epididymal head measures 1.2 x 0.5 cm. Grossly unremarkable appearance with normal flow. Small less than 3 mm epididymal cysts. LEFT TESTICLE: Measures 2.7 x 2.5 x 4.5 cm. Normal echotexture and flow. LEFT EPIDIDYMIS: Epididymal head measures 1 x 1.1 cm. Grossly unremarkable appearance with normal flow. Tiny left epididymal head cysts identified. HYDROCELE: Small, bilateral. VARICOCELE: None. OTHER FINDINGS: None. IMPRESSION: No acute findings related to/ accounting for the clinical presentation. Additional benign and/or incidental findings described above.
--- NOTE | 2018-03-21 16:58 | CP.PCM.PN ---
Subjective - Date & Time of Evaluation Date of Evaluation: 03/21/18 Time of Evaluation: 14:30 - Subjective Subjective: Infectious Disease Follow Up: March 21, 2018 52 yo male with extensive medical history including paraplegia, IVDA, T2 epidural abscess, ileostomy, DVT, HTN, and chronic sacral decubiti presenting with abdominal pain and penile swelling. He notes that urine was cloudy. Abdominal pain is around his ileostomy site which has lessened. R/O UTI. Cultures pending. Erythema has resolved. Swelling still present. Tolerating Aztreonam. Objective - Vital Signs/Intake and Output Vital Signs (last 24 hours): Temp Pulse Resp BP Pulse Ox 97.6 F 54 L 18 115/71 99 03/21/18 14:00 03/21/18 14:00 03/21/18 14:00 03/21/18 14:00 03/21/18 14:00 Intake and Output: 03/21/18 03/21/18 06:59 18:59 Output Total 1200 Balance -1200 - Medications Medications: Current Medications Acetaminophen (Tylenol 325mg Tab) 650 mg PO Q6H PRN PRN Reason: Pain, moderate (4-7) Last Admin: 03/21/18 13:55 Dose: 650 mg Baclofen (Lioresal) 20 mg PO BID [facility] Gabapentin (Neurontin) 300 mg PO BID [facility]; Protocol Last Admin: 03/21/18 10:08 Dose: 300 mg Aztreonam (Azactam 1 Gm) 100 mls @ 100 mls/hr IVPB Q8 [facility]; Protocol Last Admin: 03/21/18 13:54 Dose: 100 mls/hr Pantoprazole Sodium (Protonix Ec Tab) 40 mg PO 0600 [facility] Last Admin: 03/21/18 05:15 Dose: 40 mg Warfarin Sodium (Coumadin) 10 mg PO 1800 [facility]; Protocol - Labs Labs: 03/21/18 07:00 03/21/18 07:00 PT 13.3 SECONDS (9.4-12.5) H 03/21/18 07:00 INR 1.15 03/21/18 07:00 APTT 31.6 Seconds (25.1-36.5) 03/18/18 21:10 - Constitutional Appears: Non-toxic, No Acute Distress, Chronically Ill - Head Exam Head Exam: ATRAUMATIC, NORMOCEPHALIC - Eye Exam Eye Exam: EOMI, PERRL Pupil Exam: NORMAL ACCOMODATION, PERRL - ENT Exam ENT Exam: Mucous Membranes Moist, Normal External Ear Exam, TM's Normal Bilaterally - Neck Exam Neck Exam: Full ROM, Normal Inspection - Respiratory Exam Respiratory Exam: Clear to Ausculation Bilateral, NORMAL BREATHING PATTERN. absent: Rales, Rhonchi, Wheezes - Cardiovascular Exam Cardiovascular Exam: REGULAR RHYTHM, RRR, +S1, +S2 - GI/Abdominal Exam GI & Abdominal Exam: Soft, Normal Bowel Sounds. absent: Distended, Tenderness Additional comments: Ileostomy in place, ileostomy is functional as stool and air noted in bad and is pink without signs of necrosis or infection. - Extremities Exam Extremities Exam: absent: Joint Swelling, Pedal Edema Additional comments: Contractures. - Neurological Exam Neurological Exam: Alert, Awake, CN II-XII Intact, Oriented x3 - Psychiatric Exam Psychiatric exam: Normal Affect, Normal Mood - Skin Additional comments: As above. Assessment and Plan - Assessment and Plan (Free Text) Assessment: 52 yo male with paraplegia, HTN, history of T2 epidural abscess, ileostomy, DVT, and PCN allergy. Started on Aztreonam for coverage. Patient with issues with Vancomycin as well. Testicular ultrasound pending. Noted that urine and sacral wound cultures showing gram negative rods. Awaiting sensitivities and identification. Showing Proteus and Group C strep. Will continue with Aztreonam IV. Consider 7 days of treatment. Supportive care. Thank you for allowing me to participate in the care of the patient, we will follow with you.
[2018-03-22] MEDS: Aztreonam 1 Gm in NS 100mL 100 ML IVPB SCH ×3 (05:27→21:28)
[2018-03-22] MEDS: Pantoprazole 40 mg EC Tab PO SCH (05:28)
[2018-03-22 07:23] LABS: BASO # 0.02 K/mm3 (0.0-2.0); BASO % 0.4 % (0.0-3.0); EOS # 0.2 (0.0-0.7); EOS % 3.6 % (1.5-5.0); GRAN # 2.69 (1.4-6.5); GRAN % 57.1 % (50.0-68.0); HEMOGLOBIN 11.9 g/dL (14.0-18.0); LYMPH # 1.4 (1.2-3.4); LYMPH % 29.1 % (22.0-35.0); MEAN CORPUSCULAR HEMOGLOBIN 25.4 pg (25.0-35.0); MEAN CORPUSCULAR HGB CONC 31.3 g/dl (31.0-37.0); MEAN PLATELET VOLUME 11.5 fl (7.0-11.0); MONO # 0.5 (0.1-0.6); MONO % 9.8 % (1.0-6.0); RBC 4.69 10^6/uL (3.5-6.1); WHITE BLOOD COUNT 4.7 10^3/uL (4.5-11.0)
[2018-03-22 07:29] LABS: INR 1.48; PROTHROMBIN TIME 17.1 SECONDS (9.4-12.5)
[2018-03-22 07:31] LABS: ALT/SGPT 16 U/L (7-56); AST/SGOT 19 U/L (17-59); BLOOD UREA NITROGEN 14 mg/dL (7-21); CALCIUM 9.2 mg/dL (8.4-10.5); GFR NON-AFRICAN AMERICAN > 60
--- NOTE | 2018-03-22 12:40 | CP.PCM.PN ---
Subjective - Date & Time of Evaluation Date of Evaluation: 03/22/18 Time of Evaluation: 11:30 - Subjective Subjective: Infectious Disease Follow Up: March 22, 2018 52 yo male with extensive medical history including paraplegia, IVDA, T2 epidural abscess, ileostomy, DVT, HTN, and chronic sacral decubiti presenting with abdominal pain and penile swelling. He notes that urine was cloudy. Abdominal pain is around his ileostomy site which has lessened. R/O UTI. Cultures pending. Erythema has resolved. Swelling still present. Tolerating Aztreonam. Objective - Vital Signs/Intake and Output Vital Signs (last 24 hours): Temp Pulse Resp BP Pulse Ox 97.6 F 59 L 20 134/79 99 03/22/18 07:00 03/22/18 07:00 03/22/18 07:00 03/22/18 07:00 03/22/18 07:00 - Medications Medications: Current Medications Acetaminophen (Tylenol 325mg Tab) 650 mg PO Q6H PRN PRN Reason: Pain, moderate (4-7) Last Admin: 03/22/18 05:31 Dose: 650 mg Baclofen (Lioresal) 20 mg PO BID [facility] Last Admin: 03/22/18 10:06 Dose: 20 mg Gabapentin (Neurontin) 300 mg PO BID [facility]; Protocol Last Admin: 03/22/18 10:06 Dose: 300 mg Aztreonam (Azactam 1 Gm) 100 mls @ 100 mls/hr IVPB Q8 [facility]; Protocol Last Admin: 03/22/18 05:27 Dose: 100 mls/hr Pantoprazole Sodium (Protonix Ec Tab) 40 mg PO 0600 [facility] Last Admin: 03/22/18 05:28 Dose: 40 mg Warfarin Sodium (Coumadin) 10 mg PO 1800 [facility]; Protocol Last Admin: 03/21/18 17:32 Dose: 10 mg - Labs Labs: 03/22/18 06:45 03/22/18 06:45 PT 17.1 SECONDS (9.4-12.5) H 03/22/18 06:45 INR 1.48 03/22/18 06:45 APTT 31.6 Seconds (25.1-36.5) 03/18/18 21:10 - Constitutional Appears: Non-toxic, No Acute Distress, Chronically Ill - Head Exam Head Exam: ATRAUMATIC, NORMOCEPHALIC - Eye Exam Eye Exam: EOMI, PERRL Pupil Exam: NORMAL ACCOMODATION, PERRL - ENT Exam ENT Exam: Mucous Membranes Moist, Normal External Ear Exam, TM's Normal Bilater ally - Neck Exam Neck Exam: Full ROM, Normal Inspection - Respiratory Exam Respiratory Exam: Clear to Ausculation Bilateral, NORMAL BREATHING PATTERN. absent: Rales, Rhonchi, Wheezes - Cardiovascular Exam Cardiovascular Exam: REGULAR RHYTHM, RRR, +S1, +S2 - GI/Abdominal Exam GI & Abdominal Exam: Soft, Normal Bowel Sounds. absent: Distended, Tenderness Additional comments: Ileostomy in place, ileostomy is functional as stool and air noted in bad and is pink without signs of necrosis or infection. - Extremities Exam Extremities Exam: absent: Joint Swelling, Pedal Edema Additional comments: Contractures. - Neurological Exam Neurological Exam: Alert, Awake, CN II-XII Intact, Oriented x3 - Psychiatric Exam Psychiatric exam: Normal Affect, Normal Mood - Skin Skin Exam: Intact, Normal Color Additional comments: As above. Assessment and Plan - Assessment and Plan (Free Text) Assessment: 52 yo male with paraplegia, HTN, history of T2 epidural abscess, ileostomy, DVT, and PCN allergy. Started on Aztreonam for coverage. Patient with issues with Vancomycin as well. Testicular ultrasound pending. Noted that urine and sacral wound cultures showing gram negative rods. Awaiting sensitivities and identification. Showing Proteus and Group C strep. Will continue with Aztreonam IV. Consider up to 7 days of treatment. No further a ntibiotics after Aztreonam completion. Supportive care. Thank you for allowing me to participate in the care of the patient, we will follow with you.
--- NOTE | 2018-03-22 15:44 | CP.PCM.PN ---
<Greta Lopez - Last Filed: 03/22/18 15:37> Subjective - Date & Time of Evaluation Date of Evaluation: 03/22/18 Time of Evaluation: 10:33 - Subjective Subjective: Greta Lopez PGY1 Hospital Progress Note Patient seen and examined at bedside. No acute events reported overnight. Offers no complaints today. INR still subtherapeutic. Plan for discharge on Thursday. Objective - Vital Signs/Intake and Output Vital Signs (last 24 hours): Temp Pulse Resp BP Pulse Ox 97.6 F 59 L 20 134/79 99 03/22/18 07:00 03/22/18 07:00 03/22/18 07:00 03/22/18 07:00 03/22/18 07:00 - Medications Medications: Current Medications Acetaminophen (Tylenol 325mg Tab) 650 mg PO Q6H PRN PRN Reason: Pain, moderate (4-7) Last Admin: 03/22/18 05:31 Dose: 650 mg Baclofen (Lioresal) 20 mg PO BID [facility] Last Admin: 03/22/18 10:06 Dose: 20 mg Gabapentin (Neurontin) 300 mg PO BID [facility]; Protocol Last Admin: 03/22/18 10:06 Dose: 300 mg Aztreonam (Azactam 1 Gm) 100 mls @ 100 mls/hr IVPB Q8 [facility]; Protocol Last Admin: 03/22/18 15:21 Dose: 100 mls/hr Pantoprazole Sodium (Protonix Ec Tab) 40 mg PO 0600 [facility] Last Admin: 03/22/18 05:28 Dose: 40 mg Warfarin Sodium (Coumadin) 10 mg PO 1800 [facility]; Protocol Last Admin: 03/21/18 17:32 Dose: 10 mg - Labs Labs: 03/22/18 06:45 03/22/18 06:45 PT 17.1 SECONDS (9.4-12.5) H 03/22/18 06:45 INR 1.48 03/22/18 06:45 APTT 31.6 Seconds (25.1-36.5) 03/18/18 21:10 - Additional Findings Additional findings: - Constitutional Appears: Non-toxic, No Acute Distress - Head Exam Head Exam: ATRAUMATIC, NORMAL INSPECTION, NORMOCEPHALIC - Eye Exam Eye Exam: EOMI, Normal appearance, PERRL - Respiratory Exam Respiratory Exam: Clear to Auscultation Bilateral, NORMAL BREATHING PATTERN. absent: Accessory Muscle Use, Decreased Breath Sounds - Cardiovascular Exam Cardiovascular Exam: RRR, +S1, +S2. absent: Gallop, Rubs - GI/Abdominal Exam GI & Abdominal Exam: Normal Bowel Sounds, Soft. absent: Firm, Guarding, Tenderness Additional comments: Ileosomty in place, no gross bleeding/pus noted - Exam Exam: Mackenzie in place draining yellow urine - Extremities Exam Extremities exam: Positive for: pedal pulses present. Negative for: calf tenderness - Back Exam Back exam: NORMAL INSPECTION. absent: CVA tenderness (L), CVA tenderness (R) - Neurological Exam Neurological exam: Alert, Oriented x3 - Psychiatric Exam Psychiatric exam: Normal Affect, Normal Mood - Skin Skin Exam: Dry, Normal Color, Warm Assessment and Plan - Assessment and Plan (Free Text) Assessment: Pt is a 52 yo M with pmhx of Paraplegia, IVDA, T2 epidural abscess, ileostomy, sacral ulcers, chronic indwelling catheter, DVT (on coumadin), HTN who presents to the ED for abd pain and penile swelling. Plan: Penile swelling -Plan for suprapubic catheter insertion after the [place] as outpatient, per urology -Aztreonam 1 gram for 2 more days for total of 6 days -Groin wound culture and UCx shows proteus mirabilis -wound culture growing proteus mirabilis and group c strep -ID on consult, Dr. YEN -per ID, ok to discharge on thursday after 6 days of aztreonam -Testicular US is negative for acute pathology Abdominal pain -Abd/pelvis CT shows enlarging ventral para ostial hernia in upper abdomen, no associated obstruction, thick-walled bladder -No surgical intervention indicated at this time as per surgical team -patient to follow up with surgery as outpatient for hernia History of DVT -Continue home coumadin, 10mg today -INR subtherapeutic at , will follow up tomorrow PPX/Diet -coumadin protonix -HHD Patient seen and case discussed with attending, Dr. Hou <Miky Hou - Last Filed: 03/22/18 17:56> Objective - Vital Signs/Intake and Output Vital Signs (last 24 hours): Temp Pulse Resp BP Pulse Ox 97.6 F 59 L 20 134/79 99 03/22/18 07:00 03/22/18 07:00 03/22/18 07:00 03/22/18 07:00 03/22/18 07:00 - Medications Medications: Current Medications Acetaminophen (Tylenol 325mg Tab) 650 mg PO Q6H PRN PRN Reason: Pain, moderate (4-7) Last Admin: 03/22/18 05:31 Dose: 650 mg Baclofen (Lioresal) 20 mg PO BID [facility] Last Admin: 03/22/18 10:06 Dose: 20 mg Gabapentin (Neurontin) 300 mg PO BID [facility]; Protocol Last Admin: 03/22/18 10:06 Dose: 300 mg Aztreonam (Azactam 1 Gm) 100 mls @ 100 mls/hr IVPB Q8 [facility]; Protocol Last Admin: 03/22/18 15:21 Dose: 100 mls/hr Pantoprazole Sodium (Protonix Ec Tab) 40 mg PO 0600 [facility] Last Admin: 03/22/18 05:28 Dose: 40 mg Warfarin Sodium (Coumadin) 10 mg PO 1800 [facility]; Protocol Last Admin: 03/21/18 17:32 Dose: 10 mg - Labs Labs: 03/22/18 06:45 03/22/18 06:45 PT 17.1 SECONDS (9.4-12.5) H 03/22/18 06:45 INR 1.48 03/22/18 06:45 APTT 31.6 Seconds (25.1-36.5) 03/18/18 21:10 Attending/Attestation - Attestation I have personally seen and examined this patient.: Yes I have fully participated in the care of the patient.: Yes I have reviewed all pertinent clinical information, including history, physical exam and plan: Yes Notes (Text): 03/22/18 17:54 52 year old male with past medical history of IVDA, paraplegia, epidural abscess, sacral ulcer, DVT, hypertension, ileostomy and chronic indwelling catheter who presented with complaint of penile swelling and suprapubic pain. He was started on iv antibiotics for UTI. UCx is growing proteus mirabilis and WCx is growing proteus mirabilis and group c streptococcus. Patient may need 2 more days of aztreonam as per ID. Urology is also following and recommended suprapubic catheter. CT abd/pelvis showed enlarging ventral para ostial hernia and thick walled bladder. GI and surgery are following and recommended conservative management. Patient is on coumadin for DVT. INR is still subtherapeutic today but increasing on increased dose of coumadin. Will continue to monitor. Miky Hou MD Hospitalist.
[2018-03-23] MEDS: Pantoprazole 40 mg EC Tab PO SCH (05:27)
[2018-03-23] MEDS: Aztreonam 1 Gm in NS 100mL 100 ML IVPB SCH ×3 (05:27→21:15)
[2018-03-23 07:07] LABS: INR 2.1; PROTHROMBIN TIME 24.5 SECONDS (9.4-12.5)
[2018-03-23 07:09] LABS: BASO # 0.02 K/mm3 (0.0-2.0); BASO % 0.4 % (0.0-3.0); EOS # 0.2 (0.0-0.7); EOS % 3.4 % (1.5-5.0); GRAN # 2.63 (1.4-6.5); GRAN % 55.2 % (50.0-68.0); HEMOGLOBIN 12.3 g/dL (14.0-18.0); LYMPH # 1.5 (1.2-3.4); LYMPH % 31.3 % (22.0-35.0); MEAN CELL VOLUME 81.6 fl (80.0-105.0); MEAN CORPUSCULAR HEMOGLOBIN 26.1 pg (25.0-35.0); MEAN CORPUSCULAR HGB CONC 31.9 g/dl (31.0-37.0); MEAN PLATELET VOLUME 11.2 fl (7.0-11.0); MONO # 0.5 (0.1-0.6); MONO % 9.7 % (1.0-6.0); RBC 4.72 10^6/uL (3.5-6.1); RED CELL DISTRIBUTION WIDTH 15.2 % (11.5-14.5); WHITE BLOOD COUNT 4.8 10^3/uL (4.5-11.0)
[2018-03-23 07:30] LABS: ALT/SGPT 25 U/L (7-56); AST/SGOT 28 U/L (17-59); BLOOD UREA NITROGEN 14 mg/dL (7-21); CALCIUM 9.1 mg/dL (8.4-10.5); GFR NON-AFRICAN AMERICAN > 60
--- NOTE | 2018-03-23 11:15 | CP.PCM.PN ---
<Greta Lopez - Last Filed: 03/23/18 11:02> Subjective - Date & Time of Evaluation Date of Evaluation: 03/23/18 Time of Evaluation: 08:32 - Subjective Subjective: Greta Lopez PGY1 Hospital Progress Note Patient seen and examined at bedside. No acute events reported overnight. Offers no complaints today. INR is therapeutic today. Will lower warfarin dose today. Plan for discharge tomorrow. Objective - Vital Signs/Intake and Output Vital Signs (last 24 hours): Temp Pulse Resp BP Pulse Ox 98.4 F 64 20 123/70 97 03/23/18 06:00 03/23/18 06:00 03/23/18 06:00 03/23/18 06:00 03/23/18 06:00 - Medications Medications: Current Medications Acetaminophen (Tylenol 325mg Tab) 650 mg PO Q6H PRN PRN Reason: Pain, moderate (4-7) Last Admin: 03/23/18 05:33 Dose: 650 mg Baclofen (Lioresal) 20 mg PO BID [facility] Last Admin: 03/23/18 10:41 Dose: 20 mg Gabapentin (Neurontin) 300 mg PO BID [facility]; Protocol Last Admin: 03/23/18 10:41 Dose: 300 mg Aztreonam (Azactam 1 Gm) 100 mls @ 100 mls/hr IVPB Q8 [facility]; Protocol Last Admin: 03/23/18 05:27 Dose: 100 mls/hr Pantoprazole Sodium (Protonix Ec Tab) 40 mg PO 0600 [facility] Last Admin: 03/23/18 05:27 Dose: 40 mg Warfarin Sodium (Coumadin) 5 mg PO 1800 [facility]; Protocol - Labs Labs: 03/23/18 06:15 03/23/18 06:15 PT 24.5 SECONDS (9.4-12.5) H 03/23/18 06:15 INR 2.10 03/23/18 06:15 APTT 31.6 Seconds (25.1-36.5) 03/18/18 21:10 - Additional Findings Additional findings: - Constitutional Appears: Non-toxic, No Acute Distress - Head Exam Head Exam: ATRAUMATIC, NORMAL INSPECTION, NORMOCEPHALIC - Eye Exam Eye Exam: EOMI, Normal appearance, PERRL - Respiratory Exam Respiratory Exam: Clear to Auscultation Bilateral, NORMAL BREATHING PATTERN. absent: Accessory Muscle Use, Decreased Breath Sounds, Respiratory Distress - Cardiovascular Exam Cardiovascular Exam: RRR, +S1, +S2. absent: Gallop, Rubs - GI/Abdominal Exam GI & Abdominal Exam: Normal Bowel Sounds, Soft. absent: Firm, Guarding, Tenderness Additional comments: Ileosomty in place, no gross bleeding/pus appreciated - Exam Exam: Mackenzie in place draining yellow urine - Extremities Exam Extremities exam: Positive for: pedal pulses present. Negative for: calf t enderness - Back Exam Back exam: NORMAL INSPECTION. absent: CVA tenderness (L), CVA tenderness (R) - Neurological Exam Neurological exam: Alert, Oriented x3 - Psychiatric Exam Psychiatric exam: Normal Affect, Normal Mood - Skin Skin Exam: Dry, Normal Color, Warm Assessment and Plan - Assessment and Plan (Free Text) Assessment: Pt is a 52 yo M with pmhx of Paraplegia, IVDA, T2 epidural abscess, ileostomy, sacral ulcers, chronic indwelling catheter, DVT (on coumadin), HTN who presents to the ED for abd pain and penile swelling. Plan for discharge tomorrow. Plan: Penile swelling -Aztreonam day 5 out of 6 today. Will complete course tomorrow -Plan for insertion of suprapubic catheter next week as outpatient, per urology -Groin wound culture and UCx shows proteus mirabilis -wound culture growing proteus mirabilis and group c strep -ID on consult, Dr. YEN -per ID, ok to discharge on thursday after 6 days of aztreonam -Testicular US is negative for acute pathology History of DVT -INR therapeutic today at 2.1 from 1.48 yesterday -coumadin 5mg today, f/u INR in AM Abdominal pain -Abd/pelvis CT shows enlarging ventral para ostial hernia in upper abdomen, no associated obstruction, thick-walled bladder -No surgical intervention indicated at this time as per surgical team -patient to follow up with surgery as outpatient for hernia PPX/Diet -coumadin and protonix -HHD Patient seen and case discussed with attending, Dr. Hou <Miky Hou - Last Filed: 03/23/18 12:13> Objective - Vital Signs/Intake and Output Vital Signs (last 24 hours): Temp Pulse Resp BP Pulse Ox 98.4 F 64 20 123/70 97 12/25/18 06:00 03/23/18 06:00 03/23/18 06:00 03/23/18 06:00 03/23/18 06:00 - Medications Medications: Current Medications Acetaminophen (Tylenol 325mg Tab) 650 mg PO Q6H PRN PRN Reason: Pain, moderate (4-7) Last Admin: 03/23/18 05:33 Dose: 650 mg Baclofen (Lioresal) 20 mg PO BID [facility] Last Admin: 03/23/18 10:41 Dose: 20 mg Gabapentin (Neurontin) 300 mg PO BID [facility]; Protocol Last Admin: 03/23/18 10:41 Dose: 300 mg Aztreonam (Azactam 1 Gm) 100 mls @ 100 mls/hr IVPB Q8 [facility]; Protocol Last Admin: 03/23/18 05:27 Dose: 100 mls/hr Pantoprazole Sodium (Protonix Ec Tab) 40 mg PO 0600 [facility] Last Admin: 03/23/18 05:27 Dose: 40 mg Warfarin Sodium (Coumadin) 5 mg PO 1800 [facility]; Protocol - Labs Labs: 03/23/18 06:15 03/23/18 06:15 PT 24.5 SECONDS (9.4-12.5) H 03/23/18 06:15 INR 2.10 03/23/18 06:15 APTT 31.6 Seconds (25.1-36.5) 03/18/18 21:10 Attending/Attestation - Attestation I have personally seen and examined this patient.: Yes I have fully participated in the care of the patient.: Yes I have reviewed all pertinent clinical information, including history, physical exam and plan: Yes Notes (Text): 03/23/18 12:08 52 year old male with past medical history of IVDA, paraplegia, epidural abscess, sacral ulcer, DVT, hypertension, ileostomy and chronic indwelling catheter who presented with complaint of penile swelling and suprapubic pain. He was started on iv antibiotics for UTI. UCx is growing proteus mirabilis and WCx is growing proteus mirabilis and group c streptococcus. Patient will complete iv aztreonam treatment tomorrow as per ID. Urology is also following and recommended suprapubic catheter, possibly elective. CT abd/pelvis showed enlarging ventral para ostial hernia and thick walled bladder. GI and surgery are following and recommended conservative management. Patient is on coumadin for DVT. INR is therapeutic today so will decrease dose of coumadin. D/c planning possibly tomorrow. Miky Hou MD Hospitalist.
--- NOTE | 2018-03-23 12:45 | CP.PCM.PN ---
Subjective - Date & Time of Evaluation Date of Evaluation: 03/23/18 Time of Evaluation: 11:30 - Subjective Subjective: Infectious Disease Follow Up: March 23, 2018 52 yo male with extensive medical history including paraplegia, IVDA, T2 epidural abscess, ileostomy, DVT, HTN, and chronic sacral decubiti presenting with abdominal pain and penile swelling. He notes that urine was cloudy. Abdominal pain is around his ileostomy site which has lessened. R/O UTI. Cultures pending. Erythema has resolved. Swelling still present. Tolerating Aztreonam. Objective - Vital Signs/Intake and Output Vital Signs (last 24 hours): Temp Pulse Resp BP Pulse Ox 98.4 F 64 20 123/70 97 03/23/18 06:00 03/23/18 06:00 03/23/18 06:00 03/23/18 06:00 03/23/18 06:00 - Medications Medications: Current Medications Acetaminophen (Tylenol 325mg Tab) 650 mg PO Q6H PRN PRN Reason: Pain, moderate (4-7) Last Admin: 03/23/18 05:33 Dose: 650 mg Baclofen (Lioresal) 20 mg PO BID [facility] Last Admin: 03/23/18 10:41 Dose: 20 mg Gabapentin (Neurontin) 300 mg PO BID [facility]; Protocol Last Admin: 03/23/18 10:41 Dose: 300 mg Aztreonam (Azactam 1 Gm) 100 mls @ 100 mls/hr IVPB Q8 [facility]; Protocol Last Admin: 03/23/18 05:27 Dose: 100 mls/hr Pantoprazole Sodium (Protonix Ec Tab) 40 mg PO 0600 [facility] Last Admin: 03/23/18 05:27 Dose: 40 mg Warfarin Sodium (Coumadin) 5 mg PO 1800 [facility]; Protocol - Labs Labs: 03/23/18 06:15 03/23/18 06:15 PT 24.5 SECONDS (9.4-12.5) H 03/23/18 06:15 INR 2.10 03/23/18 06:15 APTT 31.6 Seconds (25.1-36.5) 03/18/18 21:10 - Constitutional Appears: Non-toxic, No Acute Distress, Chronically Ill - Head Exam Head Exam: ATRAUMATIC, NORMOCEPHALIC - Eye Exam Eye Exam: EOMI, PERRL Pupil Exam: NORMAL ACCOMODATION, PERRL - ENT Exam ENT Exam: Mucous Membranes Moist, Normal External Ear Exam, TM's Normal Bilaterally - Neck Exam Neck Exam: Full ROM, Normal Inspection - Respiratory Exam Respiratory Exam: Clear to Ausculation Bilateral, NORMAL BREATHING PATTERN. absent: Rales, Rhonchi, Wheezes - Cardiovascular Exam Cardiovascular Exam: REGULAR RHYTHM, RRR, +S1, +S2 - GI/Abdominal Exam GI & Abdominal Exam: Soft, Normal Bowel Sounds. absent: Distended, Tenderness Additional comments: Ileostomy in place, ileostomy is functional as stool and air noted in bad and is pink without signs of necrosis or infection. - Extremities Exam Extremities Exam: absent: Joint Swelling, Pedal Edema Additional comments: Contractures. - Neurological Exam Neurological Exam: Alert, Awake, CN II-XII Intact, Oriented x3 - Psychiatric Exam Psychiatric exam: Normal Affect, Normal Mood - Skin Skin Exam: Intact, Normal Color Assessment and Plan - Assessment and Plan (Free Text) Assessment: 52 yo male with paraplegia, HTN, history of T2 epidural abscess, ileostomy, DVT, and PCN allergy. Started on Aztreonam for coverage. Patient with issues with Vancomycin as well. Testicular ultrasound pending. Noted that urine and sacral wound cultures showing gram negative rods. Awaiting sensitivities and identification. Showing Proteus and Group C strep. Will continue with Aztreonam IV. Consider up to 7 days of treatment. No further an tibiotics after Aztreonam completion. Supportive care. Thank you for allowing me to participate in the care of the patient, we will follow with you.
[2018-03-24] MEDS: Pantoprazole 40 mg EC Tab PO SCH (05:41)
[2018-03-24] MEDS: Aztreonam 1 Gm in NS 100mL 100 ML IVPB SCH ×2 (05:41→15:14)
[2018-03-24 06:34] LABS: INR 2.63; PROTHROMBIN TIME 30.9 SECONDS (9.4-12.5)
[2018-03-24 08:31] VITALS: RESP 20
--- NOTE | 2018-03-24 13:51 | CP.PCM.DIS ---
<Greta Lopez - Last Filed: 03/24/18 13:58> Provider - Provider Date of Admission: 03/18/18 22:13 Attending physician: Miky Hou MD Consults: 03/19/18 01:40 Gastroenterology Consult Routine Comment: Consulting Provider: Atul Allen Consulting Physician: Atul Allen Reason for Consult: Hx of colon ca s/p resection and ileostomy Infectious Disease Consult Routine Comment: Consulting Provider: Deng Valadez Consulting Physician: Deng Valadez Reason for Consult: Penile swelling, pt allergic to multiple abx, Physician Consult Routine Comment: Consulting Provider: Betty Iqbal Consulting Physician: Betty Iqbal Reason for Consult: Chronic indwelling cath with surrounding inflamation of penis 03/19/18 04:36 Nursing Referral for Wound Care Routine Comment: Physician Instructions: none Reason For Exam: decubitus ulcer 03/19/18 05:05 Nursing Referral for Wound Care Routine Comment: Physician Instructions: none Reason For Exam: lright buttock decub 03/19/18 06:00 General Surgery Consult Routine Comment: Consulting Provider: Trever Askew Consulting Physician: Trever Askew Reason for Consult: Ileostomy Time Spent in preparation of Discharge (in minutes): 35 Hospital Course - Lab Results Lab Results: Micro Results 03/18/18 21:10 Blood Blood Culture - Final NO GROWTH AFTER 5 DAYS 03/18/18 21:10 Blood Gram Stain - Final TEST NOT PERFORMED 03/18/18 19:50 Blood Blood Culture - Final NO GROWTH AFTER 5 DAYS 03/18/18 19:50 Blood Gram Stain - Final TEST NOT PERFORMED 03/18/18 23:19 Groin Gram Stain - Final 03/18/18 23:19 Groin Wound Culture - Final Proteus Mirabilis Group C Streptococcus 03/18/18 21:10 Urine,Catheterized Urine Culture - Final Proteus Mirabilis Most Recent Lab Values WBC 4.8 10^3/uL (4.5-11.0) 03/23/18 06:15 RBC 4.72 10^6/uL (3.5-6.1) 03/23/18 06:15 Hgb 12.3 g/dL (14.0-18.0) L 03/23/18 06:15 Hct 38.5 % (42.0-52.0) L 03/23/18 06:15 MCV 81.6 fl (80.0-105.0) 03/23/18 06:15 MCH 26.1 pg (25.0-35.0) 03/23/18 06:15 MCHC 31.9 g/dl (31.0-37.0) 03/23/18 06:15 RDW 15.2 % (11.5-14.5) H 03/23/18 06:15 Plt Count 202 10^3/uL (120.0-450.0) 03/23/18 06:15 MPV 11.2 fl (7.0-11.0) H 03/23/18 06:15 Gran % 55.2 % (50.0-68.0) 03/23/18 06:15 Lymph % (Auto) 31.3 % (22.0-35.0) 03/23/18 06:15 [place] % (Auto) 9.7 % (1.0-6.0) H 03/23/18 06:15 Eos % (Auto) 3.4 % (1.5-5.0) 03/23/18 06:15 Baso % (Auto) 0.4 % (0.0-3.0) 03/23/18 06:15 Gran # 2.63 (1.4-6.5) 03/23/18 06:15 Lymph # (Auto) 1.5 (1.2-3.4) 03/23/18 06:15 [place] # (Auto) 0.5 (0.1-0.6) 03/23/18 06:15 Eos # (Auto) 0.2 (0.0-0.7) 03/23/18 06:15 Baso # (Auto) 0.02 K/mm3 (0.0-2.0) 03/23/18 06:15 ESR 103 mm/hr (0.00-15.0) H 03/18/18 21:10 PT 30.9 SECONDS (9.4-12.5) H 03/24/18 06:00 INR 2.63 03/24/18 06:00 APTT 31.6 Seconds (25.1-36.5) 03/18/18 21:10 pO2 31 mm/Hg (30-55) 03/18/18 21:10 VBG pH 7.34 (7.32-7.43) 03/18/18 21:10 VBG pCO2 60.0 (40-60) 03/18/18 21:10 VBG HCO3 32.4 mmol/l (21-28) H 03/18/18 21:10 VBG Total CO2 34.2 mmol.L (22-28) H 03/18/18 21:10 VBG O2 Sat (Calc) 58.0 % (40-65) 03/18/18 21:10 VBG Base Excess 4.8 mmol/L (0.0-2.0) H 03/18/18 21:10 VBG Potassium 3.2 mmol/L (3.6-5.2) L 03/18/18 21:10 Sodium 144.0 mmol/L (132-148) 03/18/18 21:10 Chloride 105.0 mmol/L (98-107) 03/18/18 21:10 Glucose 115 mg/dl (75-110) H 03/18/18 21:10 Lactate 1.2 mmol/L (0.7-2.1) 03/18/18 21:10 FiO2 21.0 % 03/18/18 21:10 Sodium 140 mmol/L (132-148) 03/23/18 06:15 Potassium 4.1 mmol/L (3.6-5.0) 03/23/18 06:15 Chloride 107 mmol/L (98-107) 03/23/18 06:15 Carbon Dioxide 28 mmol/L (21-33) 03/23/18 06:15 Anion Gap 9 (10-20) L 03/23/18 06:15 BUN 14 mg/dL (7-21) 03/23/18 06:15 Creatinine 0.7 mg/dl (0.8-1.5) L 03/23/18 06:15 Est GFR ( Amer) > 60 03/23/18 06:15 Est GFR (Non-Af Amer) > 60 03/23/18 06:15 Random Glucose 91 mg/dL (70-110) 03/23/18 06:15 Calcium 9.1 mg/dL (8.4-10.5) 03/23/18 06:15 Phosphorus 2.8 mg/dL (2.5-4.5) 03/18/18 21:10 Magnesium 2.0 mg/dL (1.7-2.2) 03/18/18 21:10 Total Bilirubin 0.2 mg/dL (0.2-1.3) 03/23/18 06:15 AST 28 U/L (17-59) 03/23/18 06:15 ALT 25 U/L (7-56) 03/23/18 06:15 Alkaline Phosphatase 83 U/L (38-126) 03/23/18 06:15 Troponin I < 0.01 ng/mL 03/18/18 21:10 NT-Pro-B Natriuret Pep 611 pg/mL (0-450) H 03/18/18 21:10 Total Protein 8.3 g/dL (5.8-8.3) 03/23/18 06:15 Albumin 4.0 g/dL (3.0-4.8) 03/23/18 06:15 Globulin 4.2 gm/dL 03/23/18 06:15 Albumin/Globulin Ratio 1.0 (1.1-1.8) L 03/23/18 06:15 Venous Blood Potassium 3.2 mmol/L (3.6-5.2) L 03/18/18 21:10 Urine Color Yellow (YELLOW) 03/18/18 21:10 Urine Appearance Clear (CLEAR) 03/18/18 21:10 Urine pH 6.5 (4.7-8.0) 03/18/18 21:10 Ur Specific [place] 1.010 (1.005-1.035) 03/18/18 21:10 Urine Protein Negative mg/dL (<30 mg/dL) 03/18/18 21:10 Urine Glucose (UA) Negative mg/dL (NEGATIVE) 03/18/18 21:10 Urine Ketones Negative mg/dL (NEGATIVE) 03/18/18 21:10 Urine Blood Trace-lysed (NEGATIVE) H 03/18/18 21:10 Urine Nitrate Negative (NEGATIVE) 03/18/18 21:10 Urine Bilirubin Negative (NEGATIVE) 03/18/18 21:10 Urine Urobilinogen 0.2 E.U./dL (<1 E.U./dL) 03/18/18 21:10 Ur Leukocyte Esterase Moderate Ang/uL (NEGATIVE) H 03/18/18 21:10 Urine RBC 5 - 10 /hpf (0-2) H 03/18/18 21:10 Urine WBC 5 - 10 /hpf (0-6) H 03/18/18 21:10 Ur Epithelial Cells 6 - 8 /hpf (0-5) H 03/18/18 21:10 - Hospital Course Hospital Course: During admission, this is a 52 year old male with PMH of Paraplegia, IVDA, T2 epidural abscess, ileostomy, sacral ulcers, chronic indwelling catheter, DVT (on coumadin), HTN who presented to the ED for abdominal pain and penile swelling. Pt stated that he had his indwelling catheter changed 2 days ago by a family member who is also a nurse. He then reports that he noted his urine to be cloudy and having sediment in the bag. He also noted abdominal pain around his ileostomy site but believes that they are unrelated. He states that he then this morning he noted that his penis was swollen, but had no noted discharge. During hospital course, patient was started on aztreonam and testicular ultrasound was unremarkable. Urine culture found to grow proteus mirabilis and wound culture grew proteus mirabilis and group c strep. Abd/pelvis CT shows enlarging ventral para ostial hernia in upper abdomen, no associated obstruction, thick-walled bladder. General surgery assessed that patient did not any surgical intervention and to follow up in outpatient clinic. Per urology, patient to be assess in outpatient clinic for evaluation of suprapubic catheter insertion. Patient was treated with coumadin for his history of DVT and therapeutic level achieved by day of discharge. Patient agreed understanding of following up outpatient with urology and surgery. Patient agreed with plan of discharge and all question were answered. Discharge Exam - Additional Findings Additional findings: - Constitutional Appears: Non-toxic, No Acute Distress - Head Exam Head Exam: ATRAUMATIC, NORMAL INSPECTION, NORMOCEPHALIC - Eye Exam Eye Exam: EOMI, Normal appearance, PERRL - Respiratory Exam Respiratory Exam: Clear to Auscultation Bilateral, NORMAL BREATHING PATTERN. absent: Accessory Muscle Use, Decreased Breath Sounds, Respiratory Distress - Cardiovascular Exam Cardiovascular Exam: RRR, +S1, +S2. absent: Gallop, Rubs - GI/Abdominal Exam GI & Abdominal Exam: Normal Bowel Sounds, Soft, globular abdomen absent: Firm, Guarding, Tenderness Additional comments: Ileostomy in place, no gross bleeding/pus noted - Extremities Exam Extremities exam: Positive for: pedal pulses present. Negative for: calf tenderness - Back Exam Back exam: NORMAL INSPECTION. absent: CVA tenderness (L), CVA tenderness (R) - Neurological Exam Neurological exam: Alert, Oriented x3 - Psychiatric Exam Psychiatric exam: Normal Affect, Normal Mood - Skin Skin Exam: Dry, Normal Color, Warm Discharge Plan - Discharge Medications Prescriptions: RX: Baclofen [Lioresal] 20 mg PO BID 14 Days #14 tab Cefpodoxime [Vantin] 200 mg PO DAILY 4 Days #4 tab RX: Gabapentin [Neurontin] 300 mg PO BID 14 Days #14 cap RX: Warfarin [Coumadin] 5 mg PO 1800 #7 tab - Follow Up Plan Condition: GOOD Disposition: HOME/ ROUTINE Instructions: Inguinal and Femoral (Groin) Hernias, Deep Vein Thrombosis (Blood Clots in the Legs), Benign Prostatic Hyperplasia (Enlarged Prostate), Hypokalemia (DC), Urinary Tract Infection, Adult (DC), How to Care for Your Mackenzie Catheter, Male, Drug Abuse and Drug Addiction (DC), Colostomy Care Additional Instructions: Please follow up with your primary care doctor within 3-5 days of discharge. Please check your INR this thursday on 03/26/18 Please follow up with your urologist, Dr. Iqbal within 5-7 days of discharge for suprapubic catheter placement. Please follow up with your general surgeon, Dr. Askew for your hernia. Please take warfarin 5mg once daily. You will be given a prescription for 7 days. You will need to get refills from your primary care doctor. Please take gabapentin 300mg BID for your neuropathy. You will be given a 7 day supply prescription. Please take baclofen 20mg BID for your back pain. You will be given a 7 day supply prescription. You will be given an antiobiotic "vantin" for 4 days prescription. Please return to the ED for any new or worsening symptoms. Referrals: Betty Iqbal MD [Staff Provider] - Trever Askew MD [Staff Provider] - <Jarrod Reynoso - Last Filed: 03/25/18 11:55> Provider - Provider Date of Admission: 03/18/18 22:13 Attending physician: Miky Hou MD Consults: 03/19/18 01:40 Gastroenterology Consult Routine Comment: Consulting Provider: Atul Allen Consulting Physician: Atul Allen Reason for Consult: Hx of colon ca s/p resection and ileostomy Infectious Disease Consult Routine Comment: Consulting Provider: Deng Valadez Consulting Physician: Deng Valadez Reason for Consult: Penile swelling, pt allergic to multiple abx, Physician Consult Routine Comment: Consulting Provider: Betty Iqbal Consulting Physician: Betty Iqbal Reason for Consult: Chronic indwelling cath with surrounding inflamation of penis 03/19/18 04:36 Nursing Referral for Wound Care Routine Comment: Physician Instructions: none Reason For Exam: decubitus ulcer 03/19/18 05:05 Nursing Referral for Wound Care Routine Comment: Physician Instructions: none Reason For Exam: lright buttock decub 03/19/18 06:00 General Surgery Consult Routine Comment: Consulting Provider: Trever Askew Consulting Physician: Trever Askew Reason for Consult: Ileostomy Hospital Course - Lab Results Lab Results: Micro Results 03/18/18 21:10 Blood Blood Culture - Final NO GROWTH AFTER 5 DAYS 03/18/18 21:10 Blood Gram Stain - Final TEST NOT PERFORMED 03/18/18 19:50 Blood Blood Culture - Final NO GROWTH AFTER 5 DAYS 03/18/18 19:50 Blood Gram Stain - Final TEST NOT PERFORMED 03/18/18 23:19 Groin Gram Stain - Final 03/18/18 23:19 Groin Wound Culture - Final Proteus Mirabilis Group C Streptococcus 03/18/18 21:10 Urine,Catheterized Urine Culture - Final Proteus Mirabilis Most Recent Lab Values WBC 4.8 10^3/uL (4.5-11.0) 03/23/18 06:15 RBC 4.72 10^6/uL (3.5-6.1) 03/23/18 06:15 Hgb 12.3 g/dL (14.0-18.0) L 03/23/18 06:15 Hct 38.5 % (42.0-52.0) L 03/23/18 06:15 MCV 81.6 fl (80.0-105.0) 03/23/18 06:15 MCH 26.1 pg (25.0-35.0) 03/23/18 06:15 MCHC 31.9 g/dl (31.0-37.0) 03/23/18 06:15 RDW 15.2 % (11.5-14.5) H 03/23/18 06:15 Plt Count 202 10^3/uL (120.0-450.0) 03/23/18 06:15 MPV 11.2 fl (7.0-11.0) H 03/23/18 06:15 Gran % 55.2 % (50.0-68.0) 03/23/18 06:15 Lymph % (Auto) 31.3 % (22.0-35.0) 03/23/18 06:15 [place] % (Auto) 9.7 % (1.0-6.0) H 03/23/18 06:15 Eos % (Auto) 3.4 % (1.5-5.0) 03/23/18 06:15 Baso % (Auto) 0.4 % (0.0-3.0) 03/23/18 06:15 Gran # 2.63 (1.4-6.5) 03/23/18 06:15 Lymph # (Auto) 1.5 (1.2-3.4) 03/23/18 06:15 [place] # (Auto) 0.5 (0.1-0.6) 03/23/18 06:15 Eos # (Auto) 0.2 (0.0-0.7) 03/23/18 06:15 Baso # (Auto) 0.02 K/mm3 (0.0-2.0) 03/23/18 06:15 ESR 103 mm/hr (0.00-15.0) H 03/18/18 21:10 PT 30.9 SECONDS (9.4-12.5) H 03/24/18 06:00 INR 2.63 03/24/18 06:00 APTT 31.6 Seconds (25.1-36.5) 03/18/18 21:10 pO2 31 mm/Hg (30-55) 03/18/18 21:10 VBG pH 7.34 (7.32-7.43) 03/18/18 21:10 VBG pCO2 60.0 (40-60) 03/18/18 21:10 VBG HCO3 32.4 mmol/l (21-28) H 03/18/18 21:10 VBG Total CO2 34.2 mmol.L (22-28) H 03/18/18 21:10 VBG O2 Sat (Calc) 58.0 % (40-65) 03/18/18 21:10 VBG Base Excess 4.8 mmol/L (0.0-2.0) H 03/18/18 21:10 VBG Potassium 3.2 mmol/L (3.6-5.2) L 03/18/18 21:10 Sodium 144.0 mmol/L (132-148) 03/18/18 21:10 Chloride 105.0 mmol/L (98-107) 03/18/18 21:10 Glucose 115 mg/dl (75-110) H 03/18/18 21:10 Lactate 1.2 mmol/L (0.7-2.1) 03/18/18 21:10 FiO2 21.0 % 03/18/18 21:10 Sodium 140 mmol/L (132-148) 03/23/18 06:15 Potassium 4.1 mmol/L (3.6-5.0) 03/23/18 06:15 Chloride 107 mmol/L (98-107) 03/23/18 06:15 Carbon Dioxide 28 mmol/L (21-33) 03/23/18 06:15 Anion Gap 9 (10-20) L 03/23/18 06:15 BUN 14 mg/dL (7-21) 03/23/18 06:15 Creatinine 0.7 mg/dl (0.8-1.5) L 03/23/18 06:15 Est GFR ( Amer) > 60 03/23/18 06:15 Est GFR (Non-Af Amer) > 60 03/23/18 06:15 Random Glucose 91 mg/dL (70-110) 03/23/18 06:15 Calcium 9.1 mg/dL (8.4-10.5) 03/23/18 06:15 Phosphorus 2.8 mg/dL (2.5-4.5) 03/18/18 21:10 Magnesium 2.0 mg/dL (1.7-2.2) 03/18/18 21:10 Total Bilirubin 0.2 mg/dL (0.2-1.3) 03/23/18 06:15 AST 28 U/L (17-59) 03/23/18 06:15 ALT 25 U/L (7-56) 03/23/18 06:15 Alkaline Phosphatase 83 U/L (38-126) 03/23/18 06:15 Troponin I < 0.01 ng/mL 03/18/18 21:10 NT-Pro-B Natriuret Pep 611 pg/mL (0-450) H 03/18/18 21:10 Total Protein 8.3 g/dL (5.8-8.3) 03/23/18 06:15 Albumin 4.0 g/dL (3.0-4.8) 03/23/18 06:15 Globulin 4.2 gm/dL 03/23/18 06:15 Albumin/Globulin Ratio 1.0 (1.1-1.8) L 03/23/18 06:15 Venous Blood Potassium 3.2 mmol/L (3.6-5.2) L 03/18/18 21:10 Urine Color Yellow (YELLOW) 03/18/18 21:10 Urine Appearance Clear (CLEAR) 03/18/18 21:10 Urine pH 6.5 (4.7-8.0) 03/18/18 21:10 Ur Specific [place] 1.010 (1.005-1.035) 03/18/18 21:10 Urine Protein Negative mg/dL (<30 mg/dL) 03/18/18 21:10 Urine Glucose (UA) Negative mg/dL (NEGATIVE) 03/18/18 21:10 Urine Ketones Negative mg/dL (NEGATIVE) 03/18/18 21:10 Urine Blood Trace-lysed (NEGATIVE) H 03/18/18 21:10 Urine Nitrate Negative (NEGATIVE) 03/18/18 21:10 Urine Bilirubin Negative (NEGATIVE) 03/18/18 21:10 Urine Urobilinogen 0.2 E.U./dL (<1 E.U./dL) 03/18/18 21:10 Ur Leukocyte Esterase Moderate Ang/uL (NEGATIVE) H 03/18/18 21:10 Urine RBC 5 - 10 /hpf (0-2) H 03/18/18 21:10 Urine WBC 5 - 10 /hpf (0-6) H 03/18/18 21:10 Ur Epithelial Cells 6 - 8 /hpf (0-5) H 03/18/18 21:10 Attending/Attestation - Attestation I have personally seen and examined this patient.: Yes I have fully participated in the care of the patient.: Yes I have reviewed all pertinent clinical information, including history, physical exam and plan: Yes Notes (Text): 03/25/18 11:49 Medical record note made by the resident after discussion with my direction and input after the patient was personally seen and examined by me. I have reviewed the chart and agree that the record accurately reflects by personal performance of the history, physical exam, data review, and medical decision-making, in the course for the patient. I have also personally directed the plan of care. 52 year old male with past medical history of IVDA, paraplegia, epidural abscess, sacral ulcer, DVT, hypertension, ileostomy and chronic indwelling catheter who presented with complaint of penile swelling and suprapubic pain. He was started on iv antibiotics for UTI. UCx is growing proteus mirabilis and WCx is growing proteus mirabilis and group c streptococcus. Patient will complete iv aztreonam today as per ID.His symptoms are improved. He is afebrile.He will folllow with Urology as out patient. CT abdomen /pelvis showed enlarging ventral para ostial hernia and thick walled bladder. GI and surgery recommended conservative management. Patient is on coumadin for DVT. INR is therapeutic today. will need repeat INR 03/26/18.Issue was discussed in detail with the patient. Management plan was discussed in detail with patient. Education was provided.
[2018-03-24 14:13] VITALS: BP 116/74; PULSE 58; TEMP 97.6; O2SAT 98
--- NOTE | 2018-03-24 19:10 | CP.PCM.PN ---
Subjective - Date & Time of Evaluation Date of Evaluation: 03/24/18 Time of Evaluation: 16:00 - Subjective Subjective: Infectious Disease Follow Up: March 24, 2018 52 yo male with extensive medical history including paraplegia, IVDA, T2 epidural abscess, ileostomy, DVT, HTN, and chronic sacral decubiti presenting with abdominal pain and penile swelling. He notes that urine was cloudy. Abdominal pain is around his ileostomy site which has lessened. R/O UTI. Cultures pending. Erythema has resolved. Swelling still present. Tolerating Aztreonam. Completing today. No additional complaints. Objective - Vital Signs/Intake and Output Vital Signs (last 24 hours): Temp Pulse Resp BP Pulse Ox 97.6 F 58 L 20 116/74 98 03/24/18 14:00 03/24/18 14:00 03/24/18 14:00 03/24/18 14:00 03/24/18 14:00 Intake and Output: 03/24/18 03/24/18 06:59 18:59 Intake Total 120 Output Total 2000 Balance -1880 - Medications Medications: Current Medications Acetaminophen (Tylenol 325mg Tab) 650 mg PO Q6H PRN PRN Reason: Pain, moderate (4-7) Last Admin: 03/24/18 05:43 Dose: 650 mg Baclofen (Lioresal) 20 mg PO BID [facility] Last Admin: 03/24/18 17:29 Dose: 20 mg Gabapentin (Neurontin) 300 mg PO BID [facility]; Protocol Last Admin: 03/24/18 17:29 Dose: 300 mg Aztreonam (Azactam 1 Gm) 100 mls @ 100 mls/hr IVPB Q8 [facility]; Protocol Last Admin: 03/24/18 15:14 Dose: 100 mls/hr Pantoprazole Sodium (Protonix Ec Tab) 40 mg PO 0600 [facility] Last Admin: 03/24/18 05:41 Dose: 40 mg Warfarin Sodium (Coumadin) 5 mg PO 1800 [facility]; Protocol Last Admin: 03/24/18 17:28 Dose: 5 mg - Labs Labs: 03/23/18 06:15 03/23/18 06:15 PT 30.9 SECONDS (9.4-12.5) H 03/24/18 06:00 INR 2.63 03/24/18 06:00 APTT 31.6 Seconds (25.1-36.5) 03/18/18 21:10 - Constitutional Appears: Non-toxic, No Acute Distress, Chronically Ill - Head Exam Head Exam: ATRAUMATIC, NORMOCEPHALIC - Eye Exam Eye Exam: EOMI, PERRL Pupil Exam: NORMAL ACCOMODATION, PERRL - ENT Exam ENT Exam: Mucous Membranes Moist, Normal External Ear Exam, TM's Normal Bilaterally - Neck Exam Neck Exam: Full ROM, Normal Inspection - Respiratory Exam Respiratory Exam: Clear to Ausculation Bilateral, NORMAL BREATHING PATTERN. absent: Rales, Rhonchi, Wheezes - Cardiovascular Exam Cardiovascular Exam: REGULAR RHYTHM, RRR, +S1, +S2 - GI/Abdominal Exam GI & Abdominal Exam: Soft, Normal Bowel Sounds. absent: Distended, Tenderness Additional comments: Ileostomy in place, ileostomy is functional as stool and air noted in bad and is pink without signs of necrosis or infection. - Extremities Exam Extremities Exam: absent: Joint Swelling, Pedal Edema Additional comments: Contractures. - Neurological Exam Neurological Exam: Alert, Awake, CN II-XII Intact, Oriented x3 - Psychiatric Exam Psychiatric exam: Normal Affect, Normal Mood - Skin Skin Exam: Intact, Normal Color Assessment and Plan - Assessment and Plan (Free Text) Assessment: 52 yo male with paraplegia, HTN, history of T2 epidural abscess, ileostomy, DVT, and PCN allergy. Started on Aztreonam for coverage. Patient with issues with Vancomycin as well. Testicular ultrasound pending. Noted that urine and sacral wound cultures showing gram negative rods. Awaiting sensitivities and identification. Showing Proteus and Group C strep. Will continue with Aztreonam IV. Consider up to 7 days of treatment... completing tonight. No further antibiotics after Aztreonam completion. Supportive care. Thank you for allowing me to participate in the care of the patient, we will follow with you.
== END 2018-03-24 20:15 | disposition home or self-care (01) | DRG 463 ==
LOC: ED 19:54 → ERH 22:13 → 5RNO 03-19 00:33
PROVIDERS: ADMIT Internal Medicine; ATTEND Internal Medicine
DX: N39.0 Urinary tract infection, site not specified (principal); L89.152 Pressure ulcer of sacral region, stage 2; L89.319 Pressure ulcer of right buttock, unspecified stage; G82.20 Paraplegia, unspecified; K43.5 Parastomal hernia without obstruction or gangrene; I10 Essential (primary) hypertension; L89.629 Pressure ulcer of left heel, unspecified stage; B96.4 Proteus (mirabilis) (morganii) as the cause of diseases classified elsewhere; N31.9 Neuromuscular dysfunction of bladder, unspecified; K42.9 Umbilical hernia without obstruction or gangrene; K80.20 Calculus of gallbladder without cholecystitis without obstruction; N48.89 Other specified disorders of penis; Z91.19 Patient's noncompliance with other medical treatment and regimen; Z93.3 Colostomy status; Z86.61 Personal history of infections of the central nervous system; Z79.01 Long term (current) use of anticoagulants; Z86.718 Personal history of other venous thrombosis and embolism; Z86.711 Personal history of pulmonary embolism; Z87.891 Personal history of nicotine dependence; Z88.0 Allergy status to penicillin

== ENCOUNTER 2018-06-09 10:25 | Emergency (ER) | payer OTHER ==
[2018-06-09 10:29] VITALS: BMI 26.2
--- NOTE | 2018-06-09 12:10 | ED PDOC ---
Arrival/HPI - General Chief Complaint: Lower Extremity Problem/Injury Time Seen by Provider: 06/09/18 11:05 Historian: Patient - History of Present Illness Narrative History of Present Illness (Text): 06/09/18 11:05 Shyam Ortega is a 53 year old male, with a past medical history of paraplegia, neurogenic bladder, ileostomy, DVT, chronic sacral decubiti, chronic indwelling haque, colostomy, hypertension, and T1-T2 epidural abscess, complaining of constant sharp nerve pain that radiates from the legs to his hips. Patient informs of intermittent nerve pain s/p epidural infection 2 years ago at T1-T2 level. 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 Patient informs taking baclofen for muscle pain. Patient denies any fevers, chills, headache, dizziness, chest pain, shortness of breath, dyspnea on exertion, cough, abdominal pain, nausea, vomiting, diarrhea, back pain, neck pain, or any other complaint. Time/Duration: 24 hours Symptom Course: Unchanged Quality: Stabbing Activities at Onset: Light Context: Home Past Medical History - Provider Review Nursing Documentation Reviewed: Yes - Infectious Disease Hx of Infectious Diseases: None - Cardiac Hx Cardiac Disorders: Yes Hx Hypertension: Yes - Pulmonary Hx Respiratory Disorders: No - Neurological Hx Neurological Disorder: Yes Other/Comment: NEUROPATHY - HEENT Hx HEENT Disorder: No - Renal Hx Renal Disorder: No - Endocrine/Metabolic Hx Endocrine Disorders: No - Hematological/Oncological Hx Cancer: No - Integumentary Hx Dermatological Disorder: Yes Other/Comment: DECUBITI - Musculoskeletal/Rheumatological Hx Musculoskeletal Disorders: Yes Other/Comment: PARAPLEGIA - Gastrointestinal Hx Gastrointestinal Disorders: Yes (COLOSTOMY) Hx Colostomy: Yes - Genitourinary/Gynecological Hx Genitourinary Disorders: Yes Hx Incontinence: Yes Other/Comment: has haque - Psychiatric Hx Psychophysiologic Disorder: No Hx Substance Use: No - Surgical History Other/Comment: COLOSTOMY - Anesthesia Hx Anesthesia: Yes Hx Anesthesia Reactions: No Hx Malignant Hyperthermia: No - Suicidal Assessment Feels Threatened In Home Enviroment: No Family/Social History - Physician Review Nursing Documentation Reviewed: Yes Family/Social History: No Known Family HX Smoking Status: Former Smoker Hx Alcohol Use: No Hx Substance Use: No Allergies/Home Meds Allergies/Adverse Reactions: Allergies ceftriaxone [From Rocephin] Adverse Reaction (Mild, Verified 06/09/18 10:37) BURNING AT IV SITE BURNING/ITCHING AT IV SITE; NOT GENERALIZED RASH Cephalosporins Adverse Reaction (Mild, Verified 06/09/18 10:37) BURNING AT IV SITE LOCALIZED BURNING/ITCHING AT IV SITE; NOT GENERALIZED RASH vancomycin Adverse Reaction (Verified 06/09/18 10:37) ITCHING Review of Systems - Physician Review All systems were reviewed & negative as marked: Yes - Review of Systems Constitutional: absent: Fevers, Night Sweats Respiratory: absent: SOB, Cough Cardiovascular: absent: Chest Pain, GALDAMEZ Gastrointestinal: absent: Abdominal Pain, Diarrhea, Nausea, Vomiting Musculoskeletal: absent: Back Pain, Neck Pain Neurological: Other (sharp, stabbing nerve pain radiating from legs to hips). absent: Headache, Dizziness Physical Exam Vital Signs Reviewed: Yes Vital Signs Temp Pulse Resp BP Pulse Ox 06/09/18 10:38 97.7 F 74 16 161/94 H 99 Temperature: Afebrile Blood Pressure: Hypertensive Pulse: Regular Respiratory Rate: Normal Appearance: Positive for: Well-Appearing, Non-Toxic, Comfortable Pain Distress: None Mental Status: Positive for: Alert and Oriented X 3 - Systems Exam Head: Present: Atraumatic, Normocephalic Pupils: Present: PERRL Extroacular Muscles: Present: EOMI Conjunctiva: Present: Normal Mouth: Present: Moist Mucous Membranes Neck: Present: Normal Range of Motion Respiratory/Chest: Present: Clear to Auscultation, Good Air Exchange. No: Respiratory Distress, Accessory Muscle Use Cardiovascular: Present: Regular Rate and Rhythm, Normal S1, S2. No: Murmurs Abdomen: Present: Hernias (hernia through colostomy bag intact). No: Tenderness, Distention, Peritoneal Signs Back: Present: Normal Inspection Upper Extremity: Present: Normal Inspection. No: Cyanosis, Edema Lower Extremity: Present: Neurovascularly Intact (light sensation intact from legs to feet). No: Edema, Other (no obvious bleeds or bruising) Skin: Present: Warm, Dry, Other (excoriations on legs from bumping into household objects, was bleeding but has stopped). No: Rashes Psychiatric: Present: Alert, Oriented x 3, Normal Insight, Normal Concentration Medical Decision Making ED Course and Treatment: 06/09/18 11:05 Impression: Patient is a 53 year old male who presents to the emergency department complaining of sharp and constant nerve pain since yesterday. Patient has hx of chronic nerve pain s/p epidural infection at T1-T2 level. Differential Diagnosis included but are not limited to: Plan: -- oxyCODONE Immediate Release Tab -- Reassess and disposition Prior Visits: Notes and results from previous visits were reviewed. Progress Notes: 06/09/18 15:17 Surgery evaluated for colostomy bag. Informs nothing to do at this time. - Scribe Statement The provider has reviewed the documentation as recorded by the Scribe Alfonso Walker All medical record entries made by the Scribe were at my direction and personally dictated by me. I have reviewed the chart and agree that the record accurately reflects my personal performance of the history, physical exam, medical decision making, and the department course for this patient. I have also personally directed, reviewed, and agree with the discharge instructions and disposition. Disposition/Present on Arrival - Present on Arrival Any Indicators Present on Arrival: Yes History of DVT/PE: Yes History of Uncontrolled Diabetes: No Urinary Catheter: Yes History of Decub. Ulcer: No History Surgical Site Infection Following: None - Disposition Have Diagnosis and Disposition been Completed?: Yes Diagnosis: Chronic leg pain Disposition: HOME/ ROUTINE Disposition Time: 13:15 Condition: GOOD Discharge Instructions (ExitCare): Chronic Pain (DC) Additional Instructions: SHYAM ORTEGA, thank you for letting us take care of you today. The emergency medical care you received today was directed at your acute symptoms. If you were prescribed any medication, please fill it and take as directed. It may take several days for your symptoms to resolve. Return to the Emergency Department if your symptoms worsen, do not improve, or if you have any other problems. Please contact your doctor or call one of the physicians/clinics you have been referred to that are listed on the Patient Visit Information form that is included in your discharge packet. Bring any paperwork you were given at discharge with you along with any medications you are taking to your follow up visit. Our treatment cannot replace ongoing medical care by a primary care provider outside of the emergency department. Thank you for allowing the [facility] team to be part of your care today. Follow up with your primary care doctor in 3-5 days for re-evaluation and further management. Prescriptions: Gabapentin [Neurontin] 100 mg PO TID #15 capsule oxyCODONE [oxyCODONE Immediate Release Tab] 5 mg PO Q6 PRN #15 tab PRN Reason: Pain, Severe (8-10) Referrals: FAMILY PROVIDER,NO [Primary Care Provider] - Follow up with primary Forms: Bilna (Belarusian)
[2018-06-09] MEDS ORDERED: oxyCODONE 5 mg Immediate Release Tab PO STA (12:39)
[2018-06-09 16:19] VITALS: TEMP 98.2
[2018-06-09 18:34] VITALS: BP 135/79; PULSE 65; RESP 17; O2SAT 100
== END 2018-06-09 18:23 | disposition home or self-care (01) ==
LOC: ED 10:25
DX: G89.29 Other chronic pain (principal); M79.606 Pain in leg, unspecified; I10 Essential (primary) hypertension; G82.20 Paraplegia, unspecified; Z87.891 Personal history of nicotine dependence